=== PATIENT | female | born 1935 | race Hispanic/Latino ===

== ENCOUNTER 2016-06-28 10:11 | Inpatient (IN) | payer MEDICARE ==
[2016-06-28 10:58] LABS: BASO # 0.1 K/uL (0.0-0.2); BASO % 0.5 % (0.0-2.0); EOS # 0.1 K/uL (0.0-0.7); EOS % 0.9 % (0.0-4.0); HEMATOCRIT 18.4 % (34.0-47.0); LYMPH # 2.3 K/uL (1.0-4.3); LYMPH % 16.2 % (20.0-40.0); MEAN CORPUSCULAR HEMOGLOBIN 27.2 pg (27.0-31.0); MEAN CORPUSCULAR HGB CONC 32.2 g/dL (33.0-37.0); MEAN PLATELET VOLUME 8.3 fL (7.2-11.7); MONO # 0.5 K/uL (0.0-0.8); MONO % 3.8 % (0.0-10.0); NRBC % 0.1 % (0.0-2.0); WHITE BLOOD COUNT 14.3 K/uL (4.8-10.8)
[2016-06-28 11:00] LABS: CHLORIDE 100 mmol/L (98-107); MEAN CELL VOLUME 84.5 fL (81.0-99.0); POTASSIUM 4.4 mmol/L (3.6-5.2); SODIUM 142 mmol/L (132-148)
[2016-06-28 11:02] LABS: BILIRUBIN,TOTAL 0.5 mg/dL (0.2-1.3); GFR AFRICAN-AMERICAN 41
[2016-06-28 11:03] LABS: ALB/GLOB RATIO 1.5 (1.0-2.1); ALKALINE PHOSPHATASE 44 U/L (38-126); ALT/SGPT 15 U/L (9-52); AST/SGOT 16 U/L (14-36); BLOOD UREA NITROGEN 44 mg/dL (7-17); CALCIUM 8.8 mg/dl (8.6-10.4); CARBON DIOXIDE 23 mmol/L (22-30); GLUCOSE,RANDOM 243 mg/dL (65-105); TOTAL PROTEIN 6.7 g/dL (6.3-8.3)
--- NOTE | 2016-06-28 11:04 | C.PDOC ---
History Of Present Illness 81 y/o female presents to the ED with complains of SOB since yesterday with associated left sided chest pain and generalized weakness. Pt with pmhx diabetes , CHF. Pt had colonoscopy scheduled today but got canceled due to feeling weak. PMD Cathi, Blending Operator Yovanny. Pt was fasting for colonoscopy so did not take medications today. Denies fever, vomiting, dizziness or any other complaints. Time Seen by Provider: 06/28/16 10:26 Chief Complaint (Nursing): Shortness Of Breath History Per: Patient History/Exam Limitations: no limitations Onset/Duration Of Symptoms: Hrs Current Symptoms Are (Timing): Still Present Severity: Moderate Associated Symptoms: Chest Pain (left sided) Recent travel outside of the [place]: No Past Medical History Reviewed: Historical Data, Nursing Documentation, Vital Signs Vital Signs: Last Vital Signs Temp 97.8 F 06/28/16 16:26 Pulse 79 06/28/16 16:26 Resp 20 06/28/16 16:26 BP 147/73 06/28/16 16:26 Pulse Ox 96 06/28/16 15:39 - Medical History PMH: CHF, HTN, Hyperlipidemia Family History: States: Unknown Family Hx - Social History Hx Alcohol Use: No Hx Substance Use: No - Immunization History Hx Tetanus Toxoid Vaccination: No Hx Influenza Vaccination: Yes Hx Pneumococcal Vaccination: No Review Of Systems Except As Marked, All Systems Reviewed And Found Negative. Constitutional: Positive for: Weakness. Negative for: Fever Cardiovascular: Positive for: Chest Pain Respiratory: Positive for: Shortness of Breath Gastrointestinal: Negative for: Vomiting Neurological: Negative for: Dizziness Physical Exam - Physical Exam Appears: Non-toxic, No Acute Distress Skin: Warm, Dry, No Rash Head: Atraumatic, Normacephalic Oral Mucosa: Moist Neck: Normal ROM, Supple Chest: Symmetrical Cardiovascular: Rhythm Regular, No Murmur Respiratory: No Accessory Muscle Use, Rales, No Rhonchi, No Wheezing Gastrointestinal/Abdominal: Soft, No Tenderness Rectal: Heme Positive (stool brown) Extremity: Normal ROM, Pedal Edema (trace) Neurological/Psych: Oriented x3, Normal Speech, Normal Motor, Normal Sensation ED Course And Treatment - Laboratory Results Result Diagrams: 06/28/16 10:48 06/28/16 10:48 Lab Interpretation: Abnormal ECG: Interpreted By Me, Viewed By Me ECG Rhythm: Sinus Rhythm ECG Interpretation: Normal Rate From EC (BPM) O2 Sat by Pulse Oximetry: 86 (on room air) Pulse Ox Interpretation: Abnormal - Radiology CXR: Interpreted by Me CXR Interpretation: Yes: No Acute Disease - Other Rad CXR X-Ray: Viewed By Me, Read By Radiologist Interpretation: PROCEDURE: CHEST RADIOGRAPH, 1 VIEW. HISTORY: sob. COMPARISON: 10/27/2015. FINDINGS: LUNGS: Mild hazy opacity in the lung bases likely atelectasis. PLEURA: No pneumothorax or pleural fluid seen.Biapical pleural parenchymal thickening noted. CARDIOVASCULAR: Normal. OSSEOUS STRUCTURES: No significant abnormalities. VISUALIZED UPPER ABDOMEN: Normal. OTHER FINDINGS: None. IMPRESSION: Possible atelectasis at the lung bases. Progress Note: Plan: type and screen, EKG, labs, CXR, UA Reassessment Condition: Unchanged - Physician Consult Information Physician Contacted: Ramy Sheets Outcome Of Conversation: admit Disposition Discussed With : Ramy Sheets Doctor Will See Patient In The: Hospital Counseled Patient/Family Regarding: Studies Performed - Disposition Disposition: HOSPITALIZED Disposition Time: 12:30 Condition: STABLE - POA Present On Arrival: None - Clinical Impression Clinical Impression: Dyspnea, Anemia, Chest pain - PA / ROAD TESTER / Resident Statement MD/DO has reviewed & agrees with the documentation as recorded. - Scribe Statement The provider has reviewed the documentation as recorded by the Jaida Lovelace All medical record entries made by the Jaida were at my direction and personally dictated by me. I have reviewed the chart and agree that the record accurately reflects my personal performance of the history, physical exam, medical decision making, and the department course for this patient. I have also personally directed, reviewed, and agree with the discharge instructions and disposition. Decision To Admit - Pt Status Changed To: Hospital Disposition Of: Inpatient - Admit Certification Admit to Inpatient:: After my assessment, the patient will require hospitalization for at least two midnights. This is because of the severity of symptoms shown, intensity of services needed, and/or the medical risk in this patient being treated as an outpatient. - InPatient: Physician Admission Certification: I certify that this patient requires 2 or more midnights of care for the following reason:: Anemia. Chest Pain. Dyspnea - . Bed Request Type: Telemetry Admitting Physician: Ramy Sheets Patient Diagnosis: Dyspnea, Anemia, Chest pain
--- NOTE | 2016-06-28 11:22 | RAD ---
PROCEDURE: CHEST RADIOGRAPH, 1 VIEW HISTORY: sob COMPARISON: 10/27/2015 FINDINGS: LUNGS: Mild hazy opacity in the lung bases likely atelectasis. PLEURA: No pneumothorax or pleural fluid seen.Biapical pleural parenchymal thickening noted. CARDIOVASCULAR: Normal. OSSEOUS STRUCTURES: No significant abnormalities. VISUALIZED UPPER ABDOMEN: Normal. OTHER FINDINGS: None. IMPRESSION: Possible atelectasis at the lung bases.
--- NOTE | 2016-06-28 14:08 | CP.PCM.CON ---
History of Present Illness - History of Present Illness History of Present Illness: Cardiology Consult Note for Dr. Zelaya Reason for consult: Angina and CHF This is a 81Y F with PMH DM, HTN, a.fib (not on anticoagulation) came to the ED for weakness. Patient was found to have a Hgb of 5.9 in ED. She reports that she was recently at [facility] [place] last month for weakness, SOB and anemia. She states that she was supposed to get a colonoscopy today, but was not feeling well and came to the ED. The patient says she has pain on LUQ that radiates to her back for the past 2 days. It is worse with coughing, which is described as a dry cough. She reports that her stool was dark and she has not seen any blood in her stool. She denies CP, SOB, n/v/d, vision changes, numbness/tingling. She reports she is not on anticoagulation for her a.fib due to her anemia. She only takes ASA at home. PMH: DM, HTN, a.fib (not on anticoagulation), Hep C (treated), GERD, cataract, restless leg PSH: breast lipoma removal Home meds: Amiodarone, ASA, Glipizide, Cardizem All: NKDA SH: Quit smoking 40yrs ago, denies EtOH and drug use FH: Non contributory Review of Systems - Review of Systems All systems: reviewed and no additional remarkable complaints except Review of Systems: As mentioned in H&P Past Patient History - Past Medical History & Family History Past Medical History?: Yes - Past Social History Smoking Status: Former Smoker Alcohol: None Drugs: Denies Home Situation {Lives}: With Family - CARDIAC Hx Congestive Heart Failure: Yes Hx Hypertension: Yes - PULMONARY Hx Respiratory Disorders: No - NEUROLOGICAL Hx Neurological Disorder: No - HEENT Hx HEENT Problems: No Hx Cataracts: Yes (bilateral, no surgery) - RENAL Hx Chronic Kidney Disease: No - ENDOCRINE/METABOLIC Hx Diabetes Mellitus Type 2: Yes - HEMATOLOGICAL/ONCOLOGICAL Hx Blood Disorders: No Hx Anemia: Yes Hx Hepatitis C: Yes - INTEGUMENTARY Hx Dermatological Problems: No - MUSCULOSKELETAL/RHEUMATOLOGICAL Hx Musculoskeletal Disorders: No Hx Arthritis: Yes Hx Falls: No - GASTROINTESTINAL Hx Gastrointestinal Disorders: Yes Hx Colostomy: Yes Hx Hemorrhoids: Yes Other/Comment: Dark Stool a Month ago - GENITOURINARY/GYNECOLOGICAL Hx Genitourinary Disorders: No - PSYCHIATRIC Hx Substance Use: No - SURGICAL HISTORY Hx Surgeries: No - ANESTHESIA Hx Anesthesia: Yes Hx Anesthesia Reactions: No Hx Malignant Hyperthermia: No Has any member of the family had a problem w/ anesthesia?: No Meds Allergies/Adverse Reactions: Allergies Allergy/AdvReac Type Severity Reaction Status Date / Time No Known Allergies Allergy Verified 07/04/15 12:04 Physical Exam - Constitutional Appears: No Acute Distress - Head Exam Head Exam: ATRAUMATIC, NORMAL INSPECTION, NORMOCEPHALIC - Eye Exam Eye Exam: Normal appearance. absent: Scleral icterus (pale sclera ) Pupil Exam: NORMAL ACCOMODATION - ENT Exam ENT Exam: Mucous Membranes Moist - Neck Exam Neck exam: Positive for: Normal Inspection - Respiratory Exam Respiratory Exam: Rales (bilateral basilar ), Wheezes (apices bilateral ), NORMAL BREATHING PATTERN - Cardiovascular Exam Cardiovascular Exam: REGULAR RHYTHM, +S1, +S2. absent: Gallop, Rubs, Systolic Murmur - GI/Abdominal Exam GI & Abdominal Exam: Distended, Normal Bowel Sounds, Soft. absent: Mass, Rebound, Rigid, Tenderness - Extremities Exam Extremities exam: Positive for: pedal edema (+1 pitting bilaterally ) - Neurological Exam Neurological exam: Alert, CN II-XII Intact, Oriented x3 - Psychiatric Exam Psychiatric exam: Normal Affect, Normal Mood - Skin Skin Exam: Dry, Intact, Normal Color, Warm Results - Vital Signs Recent Vital Signs: Last Vital Signs Temp 97.5 F L 06/28/16 13:55 Pulse 76 06/28/16 13:55 Resp 18 06/28/16 13:55 BP 155/69 H 06/28/16 13:55 Pulse Ox 94 L 06/28/16 12:49 - Labs Result Diagrams: 06/28/16 10:48 06/28/16 10:48 Assessment & Plan - Assessment and Plan (Free Text) Assessment: This is a 81Y F with PMH DM, HTN, a.fib (not on anticoagulation) admitted for 1) Anemia secondary to GI bleed 2) A.fib - rate and rhythm controlled 3) DM 4) HTN 5) MARIA EUGENIA Plan: - Hold ASA - Outpatient echo noted to be normal EF with normal biventricular function - Lasix prn SOB during transfusion - Continue Amiodarone and Cardizem - GI work up pending GI ppx: Protonix DVT ppx: SCDs Case seen, reviewed and discussed with Dr. Garcia Wells PGY1 - Date & Time Date: 06/28/16 Time: 14:15
--- NOTE | 2016-06-28 17:16 | CARD ---
APPROVED REPORT EKG Measurement Heart [id number] <Conclusion> Normal sinus rhythm Normal ECG
--- NOTE | 2016-06-28 17:30 | CP.PCM.HP ---
History of Present Illness - History of Present Illness History of Present Illness: CC - "Chest pain and SOB" HPI - 81 year old Setswana speaking female with PMH DM, HTN, a.fib (not on anticoagulation), CHF came to the ED for weakness. Patient was found to have a Hgb of 5.9 in ED. She reports that she was recently at [facility] [place] last month for weakness, SOB and anemia. She states that she was supposed to get a colonoscopy today, but was not feeling well and came to the ED so the colonoscopy was cancelled. The patient says she has pain on LUQ that radiates to her back for the past 2 weeks. It is worse with coughing, which is described as a dry cough. She states this pain is right around her left breast. She describes it as a pressure like 10/10 pain that is worse with movement. She tried to take Alieve but this did not alleviate the pain. She denies radiation to the jaw or down the arm. Denies diaphoresis or N/V associated with the pain. She states that she is more SOb than normal for the past week and admits to leg swelling more than normal for her. She reports that her stool was dark/black and she has not seen any blood in her stool recently but saw blood once a month ago. She reports her last colonoscopy was 5 years ago but per GI there are no records of this. She has never had an endoscopy. She denies CP, SOB, n/v/d, vision changes , numbness/tingling. She reports she is not on anticoagulation for her a.fib due to her anemia. She only takes ASA at home. PMH: CHF?, Anemia, DM, HTN, a.fib (not on anticoagulation), Hep C (treated), GERD, cataract, restless leg PSH: breast lipoma removal Home meds: Amiodarone 200 mg PO daily, ASA 81 mg PO daily, Glipizide 10mg PO daily, Cardizem 240mg PO daily All: NKDA SH: Quit smoking 40yrs ago, denies EtOH and drug use FH: Non contributory Present on Admission - Present on Admission Any Indicators Present on Admission: No Review of Systems - Constitutional Constitutional: absent: Chills, Fever - Cardiovascular Cardiovascular: Chest Pain, Chest Pain at Rest, Leg Edema, Paroxysmal Nocturnal Dyspnea. absent: Diaphoresis, Palpitations, Pedal Edema, Syncope Additional comments: radiate to back around left breast - Respiratory Respiratory: Dyspnea. absent: Cough, Hemoptysis - Gastrointestinal Gastrointestinal: absent: Abdominal Pain, Constipation, Diarrhea, Nausea, Vomiting - Genitourinary Genitourinary: absent: Change in Urinary Stream, Difficulty Urinating - Neurological Neurological: absent: Abnormal Gait, Dizziness, Numbness, Tingling, Weakness - Hematologic/Lymphatic Hematologic: absent: Easy Bleeding, Easy Bruising Past Patient History - Past Medical History & Family History Past Medical History?: Yes - Past Social History Smoking Status: Former Smoker Alcohol: None Drugs: Denies Home Situation {Lives}: With Family - CARDIAC Hx Congestive Heart Failure: Yes Hx Hypertension: Yes - PULMONARY Hx Respiratory Disorders: No - NEUROLOGICAL Hx Neurological Disorder: No - HEENT Hx HEENT Problems: No Hx Cataracts: Yes (bilateral, no surgery) - RENAL Hx Chronic Kidney Disease: No - ENDOCRINE/METABOLIC Hx Diabetes Mellitus Type 2: Yes - HEMATOLOGICAL/ONCOLOGICAL Hx Blood Disorders: No Hx Anemia: Yes Hx Hepatitis C: Yes - INTEGUMENTARY Hx Dermatological Problems: No - MUSCULOSKELETAL/RHEUMATOLOGICAL Hx Musculoskeletal Disorders: No Hx Arthritis: Yes Hx Falls: No - GASTROINTESTINAL Hx Gastrointestinal Disorders: Yes Hx Colostomy: Yes Hx Hemorrhoids: Yes Other/Comment: Dark Stool a Month ago - GENITOURINARY/GYNECOLOGICAL Hx Genitourinary Disorders: No - PSYCHIATRIC Hx Substance Use: No - SURGICAL HISTORY Hx Surgeries: No - ANESTHESIA Hx Anesthesia: Yes Hx Anesthesia Reactions: No Hx Malignant Hyperthermia: No Has any member of the family had a problem w/ anesthesia?: No Meds Allergies/Adverse Reactions: Allergies Allergy/AdvReac Type Severity Reaction Status Date / Time No Known Allergies Allergy Verified 07/04/15 12:04 Physical Exam - Constitutional Appears: Non-toxic, No Acute Distress - Head Exam Head Exam: ATRAUMATIC, NORMAL INSPECTION - Eye Exam Eye Exam: EOMI, Normal appearance, PERRL Pupil Exam: NORMAL ACCOMODATION - ENT Exam ENT Exam: Mucous Membranes Dry - Respiratory Exam Respiratory Exam: Rales, NORMAL BREATHING PATTERN. absent: Accessory Muscle Use , Chest Wall Tenderness, Respiratory Distress - Cardiovascular Exam Cardiovascular Exam: Irregular Rhythm, +S1, +S2 - GI/Abdominal Exam GI & Abdominal Exam: Normal Bowel Sounds, Soft. absent: Distended, Guarding, Tenderness - Extremities Exam Extremities exam: Positive for: normal inspection. Negative for: calf tenderness, pedal edema Additional comments: 2+ edema bilateral - Back Exam Back exam: NORMAL INSPECTION, paraspinal tenderness. absent: CVA tenderness (L) , CVA tenderness (R) - Neurological Exam Neurological exam: Alert, CN II-XII Intact, Oriented x3, Reflexes Normal - Psychiatric Exam Psychiatric exam: Normal Affect, Normal Mood - Skin Skin Exam: Dry, Intact, Normal Color, Pallor, Warm Results - Vital Signs Recent Vital Signs: Last Vital Signs Temp 97.8 F 06/28/16 16:26 Pulse 79 06/28/16 16:26 Resp 20 06/28/16 16:26 BP 147/73 06/28/16 16:26 Pulse Ox 86 L 06/28/16 17:17 - Labs Result Diagrams: 06/28/16 10:48 06/28/16 10:48 Labs: Laboratory Results - last 24 hr 06/28/16 06/28/16 16:04 16:24 POC Glucose (mg/dL) 55 L 73 Assessment & Plan - Assessment and Plan (Free Text) Assessment: Anemia secondary to GI Bleed Hbg - 5.9 1 u PRBC administered, will watch for overload transfuse more as necessary Dr Stockton, GI consulted, help appreciated Protonix 40mg IVP BID CHF exacerbation secondary to anemia BNP elevated - 1940 40 Lasix IVP x 1 dose First Troponin negative - f/u x2 more EKG - NSR, follow up x 2 more Patient with a hx of A fib on past admission at [facility] [place] not on anticoagulation ASA 81mg PO daily - held due to possible GI bleed Chest X ray - possible atelectasis, rales on examination (slight) Amiodarone 200mg PO daily Diltiazem 240mg PO daily Cardiology consulted, Dr. Zelaya help appreciated f/u echocardiogram Chest pain rule out UT/dissection meds and tests as listed above f/u Aorta US - can't get contrast due to kidney function f/u abd obstructive series MARIA EUGENIA unsure of baseline Monitor BUN/CR 44/1.5 DM Accuchecks ACHS Insulin sliding scale Hold home glipizide f/u HbA1c Prophylactic Measures Protonix 40mg IVP BID No chemical anticoagualtion due to possible GI bleed Consisten Carb heart healthy diet
--- NOTE | 2016-06-28 18:36 | CP.PCM.CON ---
History of Present Illness - History of Present Illness History of Present Illness: CC: Anemia HPI: 81 year old woman well known to me for many years, successfully treated for hepatitis C with sustained virologic response. We are asked to consult for anemia , Hgb 5, possible GI bleed. The [place] [facility] ago for new onset SFib, and was found to be anemic then, so was not anticoagulated, and in fact was scheduled for Colonoscopy with me today, but came to the ER instead because of chest and back pain and severe anemia. The patient can not see well, but thinks she saw black stools intermittently over the past 2 weeks. The patient received one unit of PRBCs to this point. She was evaluated by Dr Tran of Cardiology, and per my discussion with him, she has good cardiac function, and is not having coronary ischemia and is stable to undergo GI endoscopic procedures. I also spoke with Dr hSeets, the primary admitting doctor. Review of Systems - Constitutional Constitutional: Malaise, Weakness. absent: Chills - EENT Eyes: absent: Change in Vision Ears: absent: Decreased Hearing Nose/Mouth/Throat: absent: Epistaxis - Cardiovascular Cardiovascular: Chest Pain, Dyspnea, Irregular Heart Rhythm, Radiating Pain - Respiratory Respiratory: absent: Cough - Gastrointestinal Gastrointestinal: Melena. absent: Abdominal Pain, Change in Bowel Habits, Nausea - Genitourinary Genitourinary: absent: Difficulty Urinating - Musculoskeletal Musculoskeletal: Arthralgias, Back Pain - Neurological Neurological: absent: Abnormal Hearing, Confusion, Syncope - Psychiatric Psychiatric: absent: Confusion Past Patient History - Past Medical History & Family History Past Medical History?: Yes - Past Social History Smoking Status: Former Smoker Alcohol: None Drugs: Denies Home Situation {Lives}: With Family - CARDIAC Hx Congestive Heart Failure: Yes Hx Hypertension: Yes - PULMONARY Hx Respiratory Disorders: No - NEUROLOGICAL Hx Neurological Disorder: No - HEENT Hx HEENT Problems: No Hx Cataracts: Yes (bilateral, no surgery) - RENAL Hx Chronic Kidney Disease: No - ENDOCRINE/METABOLIC Hx Diabetes Mellitus Type 2: Yes - HEMATOLOGICAL/ONCOLOGICAL Hx Blood Disorders: No Hx Anemia: Yes Hx Hepatitis C: Yes - INTEGUMENTARY Hx Dermatological Problems: No - MUSCULOSKELETAL/RHEUMATOLOGICAL Hx Musculoskeletal Disorders: No Hx Arthritis: Yes Hx Falls: No - GASTROINTESTINAL Hx Gastrointestinal Disorders: Yes Hx Colostomy: Yes Hx Hemorrhoids: Yes Other/Comment: Dark Stool a Month ago - GENITOURINARY/GYNECOLOGICAL Hx Genitourinary Disorders: No - PSYCHIATRIC Hx Substance Use: No - SURGICAL HISTORY Hx Surgeries: No - ANESTHESIA Hx Anesthesia: Yes Hx Anesthesia Reactions: No Hx Malignant Hyperthermia: No Has any member of the family had a problem w/ anesthesia?: No Meds Allergies/Adverse Reactions: Allergies Allergy/AdvReac Type Severity Reaction Status Date / Time No Known Allergies Allergy Verified 07/04/15 12:04 - Medications Medications: Current Medications Amiodarone HCl (Cordarone) 200 mg PO DAILY [facility] Diltiazem HCl (Cardizem Cd) 240 mg PO DAILY [facility] Insulin Human Regular (Novolin R) 0 unit SC ACHS MARIBETH PRN Reason: Protocol Pantoprazole Sodium (Protonix Inj) 40 mg IVP Q12H [facility] Last Admin: 06/28/16 16:53 Dose: 40 mg Physical Exam - Constitutional Appears: No Acute Distress, Chronically Ill - Head Exam Head Exam: NORMOCEPHALIC - Eye Exam Eye Exam: absent: Scleral icterus Additional comments: Conjunct pale - ENT Exam ENT Exam: Mucous Membranes Dry - Neck Exam Neck exam: Positive for: Normal Inspection - Respiratory Exam Respiratory Exam: NORMAL BREATHING PATTERN - Cardiovascular Exam Cardiovascular Exam: Irregular Rhythm - GI/Abdominal Exam GI & Abdominal Exam: Soft. absent: Distended, Mass, Organomegaly, Rebound, Tenderness - Rectal Exam Rectal Exam: Deferred - Extremities Exam Extremities exam: Positive for: normal inspection - Back Exam Back exam: NORMAL INSPECTION - Neurological Exam Neurological exam: Alert, Oriented x3 Results - Vital Signs Recent Vital Signs: Last Vital Signs Temp 97.8 F 06/28/16 16:26 Pulse 79 06/28/16 16:26 Resp 20 06/28/16 16:26 BP 147/73 06/28/16 16:26 Pulse Ox 86 L 06/28/16 17:17 - Labs Result Diagrams: 06/28/16 10:48 06/28/16 10:48 Labs: Laboratory Results - last 24 hr 06/28/16 06/28/16 16:04 16:24 POC Glucose (mg/dL) 55 L 73 Assessment & Plan (1) Anemia Assessment and Plan: R/O GI Bleed. Possible melena in history. Rec: PPI. EGD in AM. Discussed with Custodial Maintenance Worker. Transfuse PRBCs to Hgb at least 7.5. Status: Acute (2) Chest pain Assessment and Plan: Noncardiac pain. Custodial Maintenance Worker on consult. Status: Acute (3) Diabetes 1.5, managed as type 2 Assessment and Plan: Management per PCP Status: Chronic (4) Atrial fibrillation with controlled ventricular response Assessment and Plan: Recent diagnosis, but no anticoagulation due to anemia. Will need GI workup. Status: Acute
[2016-06-28 19:51] LABS: IRON 116 ug/dL (37-170)
[2016-06-28 19:57] LABS: BASO # 0.1 K/uL (0.0-0.2); BASO % 0.5 % (0.0-2.0); EOS # 0.2 K/uL (0.0-0.7); EOS % 1.2 % (0.0-4.0); HEMATOCRIT 21.4 % (34.0-47.0); LYMPH % 20.6 % (20.0-40.0); MEAN CELL VOLUME 83.2 fL (81.0-99.0); MEAN CORPUSCULAR HEMOGLOBIN 26.6 pg (27.0-31.0); MEAN PLATELET VOLUME 8.3 fL (7.2-11.7); MONO # 0.7 K/uL (0.0-0.8); MONO % 4.7 % (0.0-10.0); NRBC % 0.1 % (0.0-2.0); RED CELL DISTRIBUTION WIDTH 16.5 % (11.5-14.5); WHITE BLOOD COUNT 14.6 K/uL (4.8-10.8)
[2016-06-28] MEDS: (Novolin R) Insulin Human Regular 100 units/ml vial SC SCH (21:29)
--- NOTE | 2016-06-29 07:30 | CP.PCM.PN ---
Subjective - Date & Time of Evaluation Date of Evaluation: 06/29/16 Time of Evaluation: 20:00 - Subjective Subjective: Patient seen and examined at bedside. There were no acute overnight events. She is still complainig of the pain around her left breast when she moves. She reports having to urinate multiple times yesterday after her IV lasix. She says that her breathing and weakness has improved since her transfusion yesterday. She denies having any CP, SOB, n/v/d, numbness/tingling. Objective - Vital Signs/Intake and Output Vital Signs (last 24 hours): Temp Pulse Resp BP Pulse Ox 97.9 F 77 20 127/67 96 06/28/16 23:20 06/28/16 23:35 06/28/16 23:20 06/28/16 23:20 06/28/16 23:20 - Medications Medications: Current Medications Amiodarone HCl (Cordarone) 200 mg PO DAILY [facility] Diltiazem HCl (Cardizem Cd) 240 mg PO DAILY [facility] Insulin Human Regular (Novolin R) 0 unit SC ACHS [facility] PRN Reason: Protocol Last Admin: 06/28/16 21:29 Dose: Not Given Pantoprazole Sodium (Protonix Inj) 40 mg IVP Q12H [facility] Last Admin: 06/28/16 16:53 Dose: 40 mg - Labs Labs: 06/28/16 19:50 - Constitutional Appears: Non-toxic, No Acute Distress - Head Exam Head Exam: NORMAL INSPECTION - Eye Exam Eye Exam: EOMI, Normal appearance, PERRL Pupil Exam: NORMAL ACCOMODATION - ENT Exam ENT Exam: Mucous Membranes Moist, Normal Oropharynx - Respiratory Exam Respiratory Exam: Rales (mild ), NORMAL BREATHING PATTERN. absent: Accessory Muscle Use, Chest Wall Tenderness, Respiratory Distress - Cardiovascular Exam Cardiovascular Exam: REGULAR RHYTHM, +S1, +S2 - GI/Abdominal Exam GI & Abdominal Exam: Soft, Normal Bowel Sounds. absent: Distended, Firm, Guarding, Tenderness - Extremities Exam Extremities Exam: Full ROM, Normal Inspection, Pedal Edema. absent: Calf Tenderness Additional comments: 1+ bilateral - Back Exam Back Exam: NORMAL INSPECTION. absent: CVA tenderness (L), CVA tenderness (R), paraspinal tenderness - Neurological Exam Neurological Exam: Alert, Awake, CN II-XII Intact, Oriented x3 Neuro motor strength exam: Left Upper Extremity: 5, Right Upper Extremity: 5, Left Lower Extremity: 5, Right Lower Extremity: 5 - Psychiatric Exam Psychiatric exam: Normal Affect, Normal Mood - Skin Skin Exam: Dry, Intact, Pallor, Warm Assessment and Plan - Assessment and Plan (Free Text) Assessment: Anemia secondary to GI Bleed Hbg - 5.9, repeat 6.9, then 7 will administer 1-2 more units PRBC 1 more unit this AM - will revaluate before giving the 3rd unit 1 u PRBC administered on 06/29- will watch for overload Transfuse PRBCs to Hgb at least 7.5 Dr [place], GI consulted, help appreciated - EGD today Protonix 40mg IVP BID CHF exacerbation secondary to anemia BNP elevated - 1940 40 Lasix IVP x 1 dose Troponin negative x 3 EKG - NSR, x 3. no acute changes Patient with a hx of A fib on past admission at [facility] [place] not on anticoagulation ASA 81mg PO daily - held due to possible GI bleed Chest X ray - possible atelectasis, rales on examination (slight) Amiodarone 200mg PO daily Diltiazem 240mg PO daily Cardiology consulted, Dr. Zelaya help appreciated f/u echocardiogram Chest pain non cardiac in nature ruled out MS/dissection meds as listed above Aorta US- no evidence of AAA Abd obstructive series - moderate constipation, no obstruction, no free air MARIA EUGENIA unsure of baseline Monitor BUN/CR 39/1.5 DM Accuchecks ACHS Insulin sliding scale Hold home glipizide HbA1c - 6 Constipation Lactulose x 1 dose after EGD Prophylactic Measures Protonix 40mg IVP BID No chemical anticoagulation due to possible GI bleed Consistent Carb heart healthy diet
[2016-06-29] MEDS: (Novolin R) Insulin Human Regular 100 units/ml vial SC SCH ×4 (07:33→22:01)
[2016-06-29 07:37] LABS: BASO % 0.4 % (0.0-2.0); EOS # 0.3 K/uL (0.0-0.7); EOS % 2.2 % (0.0-4.0); HEMATOCRIT 21.5 % (34.0-47.0); LYMPH # 2.2 K/uL (1.0-4.3); LYMPH % 17.2 % (20.0-40.0); MEAN CELL VOLUME 83.2 fL (81.0-99.0); MEAN CORPUSCULAR HEMOGLOBIN 27.1 pg (27.0-31.0); MEAN CORPUSCULAR HGB CONC 32.6 g/dL (33.0-37.0); MEAN PLATELET VOLUME 8.3 fL (7.2-11.7); MONO # 0.6 K/uL (0.0-0.8); MONO % 4.8 % (0.0-10.0); NRBC % 0.1 % (0.0-2.0); RED CELL DISTRIBUTION WIDTH 16.6 % (11.5-14.5)
[2016-06-29 07:50] LABS: CHLORIDE 101 mmol/L (98-107); POTASSIUM 3.7 mmol/L (3.6-5.2); SODIUM 141 mmol/L (132-148)
[2016-06-29 07:52] LABS: ALB/GLOB RATIO 1.4 (1.0-2.1); ALKALINE PHOSPHATASE 42 U/L (38-126); AST/SGOT 16 U/L (14-36); BILIRUBIN,TOTAL 0.4 mg/dL (0.2-1.3); BLOOD UREA NITROGEN 39 mg/dL (7-17); CARBON DIOXIDE 25 mmol/L (22-30); CHOLESTEROL 115 mg/dL (0-199); GFR AFRICAN-AMERICAN 41; TOTAL PROTEIN 6.4 g/dL (6.3-8.3)
[2016-06-29 07:53] LABS: ALT/SGPT 20 U/L (9-52); CALCIUM 8.7 mg/dl (8.6-10.4); GLUCOSE,RANDOM 93 mg/dL (65-105); PHOSPHOROUS 4.9 mg/dL (2.5-4.5)
[2016-06-29] MEDS: diltiaZEM 240 mg/24 Hours CD Cap PO SCH (09:14)
--- NOTE | 2016-06-29 09:39 | CP.PCM.PN ---
Subjective - Date & Time of Evaluation Date of Evaluation: 06/29/16 Time of Evaluation: 09:25 - Subjective Subjective: Cardiology Progress Note for Dr. Zelaya Patient seen and examined at bedside. There were no acute overnight events. She reports having to urinate multiple times yesterday after her IV lasix. She says that her breathing and weakness has improved since her transfusion yesterday. She denies having any CP, SOB, n/v/d, numbness/tingling. Objective - Vital Signs/Intake and Output Vital Signs (last 24 hours): Temp Pulse Resp BP Pulse Ox 97.9 F 74 18 122/64 97 06/29/16 09:01 06/29/16 09:01 06/29/16 09:01 06/29/16 09:01 06/29/16 08:55 Intake and Output: 06/29/16 06/29/16 06:59 18:59 Intake Total 0 Balance 0 - Medications Medications: Current Medications Amiodarone HCl (Cordarone) 200 mg PO DAILY [facility] Last Admin: 06/29/16 09:14 Dose: 200 mg Diltiazem HCl (Cardizem Cd) 240 mg PO DAILY [facility] Last Admin: 06/29/16 09:14 Dose: 240 mg Insulin Human Regular (Novolin R) 0 unit SC ACHS [facility] PRN Reason: Protocol Last Admin: 06/29/16 07:33 Dose: Not Given Pantoprazole Sodium (Protonix Inj) 40 mg IVP Q12H [facility] Last Admin: 06/28/16 16:53 Dose: 40 mg - Labs Labs: 06/29/16 07:09 06/29/16 07:09 - Constitutional Appears: No Acute Distress - Head Exam Head Exam: ATRAUMATIC, NORMAL INSPECTION, NORMOCEPHALIC - Eye Exam Eye Exam: Normal appearance Pupil Exam: NORMAL ACCOMODATION - ENT Exam ENT Exam: Mucous Membranes Moist - Neck Exam Neck Exam: Normal Inspection - Respiratory Exam Respiratory Exam: Clear to Ausculation Bilateral, NORMAL BREATHING PATTERN. absent: Rales, Rhonchi, Wheezes, Respiratory Distress - Cardiovascular Exam Cardiovascular Exam: REGULAR RHYTHM, +S1, +S2. absent: Gallop, Rubs, Murmur - GI/Abdominal Exam GI & Abdominal Exam: Soft, Normal Bowel Sounds. absent: Guarding, Rigid, Tenderness, Rebound - Extremities Exam Extremities Exam: Normal Capillary Refill, Normal Inspection, Pedal Edema (+1 pitting edema ). absent: Tenderness - Neurological Exam Neurological Exam: Alert, Awake, CN II-XII Intact, Oriented x3 - Psychiatric Exam Psychiatric exam: Normal Affect, Normal Mood - Skin Skin Exam: Dry, Intact, Normal Color Assessment and Plan - Assessment and Plan (Free Text) Assessment: This is a 81Y F with PMH DM, HTN, a.fib (not on anticoagulation) admitted for 1) Anemia secondary to GI bleed 2) A.fib - rate and rhythm controlled 3) DM 4) HTN 5) MARIA EUGENIA Plan: - Hgb 7.0- will be transfused 2 more PRBC - Lasix prn SOB during transfusion - Continue Amiodarone and Cardizem - EGD planned for today as per GI - TSH noted to be elevated-will repeat to confirm hypothyroidism - T4 normal GI ppx: Protonix DVT ppx: SCDs Case seen, reviewed and discussed with Dr. Garcia Wells PGY1
--- NOTE | 2016-06-29 09:42 | US ---
Indication: chest pain radiating to the back Technique: Transabdominal grayscale and Doppler ultrasound imaging of the aorta. Comparison: None available. Findings: No evidence of aneurysm of the abdominal aorta. No periaortic mass or fluid collection identified. The proximal aorta measures approximately 1.8 cm AP in the sagittal plane, 2.1 x 1.9 cm transverse. The mid aorta measures approximately 1.1 cm AP in the sagittal plane, 1.6 x 1.3 cm transverse. The distal aorta measures approximately 0.8 cm AP in the sagittal plane, 1.3 x 0.9 cm transverse. Impression: No evidence of abdominal aortic aneurysm.
--- NOTE | 2016-06-29 10:02 | RAD ---
Indication: Assess for free air, upright Abdomen series Comparison: None Findings: Examination limited by habitus. Visualized lung bases reveal interstitial pattern. No significant pleural effusion or definite pneumothorax. Elevation of the right hemidiaphragm. Nonspecific bowel gas pattern without evidence of obstruction. Moderate constipation. No definite free air. Coarse pelvic calcifications likely related to degenerating fibroids. Right upper quadrant calcifications may reflect gallstones. Degenerative changes of the spine. Impression: Moderate constipation. Right upper quadrant calcifications may represent gallstones. Coarse pelvic calcifications likely related to degenerating fibroids. Preliminary impression was provided by virtual radiologic.
[2016-06-29] MEDS ORDERED: Propofol 10 mg/ml Inj (20 ML) ONE (10:27)
--- NOTE | 2016-06-29 15:46 | CARD ---
APPROVED REPORT EXAM: Two-dimensional and M-mode echocardiogram with Doppler and color Doppler. Other Information Quality : GoodRhythm : Technically limited study due to body habitus. INDICATION Dizziness and Vertigo Dyspnea Atrial Fibrillation Chest pressure RISK FACTORS Obesity Diabetes M-Mode DIMENSIONS RVDd1.63 (2.1-3.2cm)Left Atrium (MM)4.82 (2.5-4.0cm) IVSd1.11 (0.7-1.1cm)Aortic Root2.50 (2.2-3.7cm) LVDd5.03 (4.0-5.6cm)Aortic Cusp Exc.1.84 (1.5-2.0cm) PWd1.08 (0.7-1.1cm)FS (%) 52 % LVDs2.43 (2.0-3.8cm)LVEF (%)83 (>50%) Mitral Valve MV E Vxcsuoxc334.7cm/sMV A Ucqzrglu42.3cm/sE/A ratio2.0 TDI E/Lateral E'0.0E/Medial E'0.0 Tricuspid Valve TR Peak Qdbezjac381fs/sTR Peak Gr.[id number] LEFT VENTRICLE The left ventricle is normal size. There is borderline concentric left ventricular hypertrophy. The left ventricular function is normal. The left ventricular ejection fraction is within the normal range. There is normal LV segmental wall motion. RIGHT VENTRICLE The right ventricle is normal size. There is normal right ventricular wall thickness. The right ventricular systolic function is normal. ATRIA The left atrium is moderately dilated. The right atrium is mildly dilated. AORTIC VALVE The aortic valve is moderately sclerotic. MITRAL VALVE The mitral valve leaflets are thickened and calcified., A mitral vegitation can not be ruled out Mitral regurgitation is mild to moderate. TRICUSPID VALVE There is moderate tricuspid regurgitation. There is moderate to severe pulmonary hypertension. GREAT VESSELS The aortic root is normal in size. The IVC is normal in size and collapses >50% with inspiration. PERICARDIAL EFFUSION There is no pericardial effusion. <Conclusion> The left ventricle is normal size. There is borderline concentric left ventricular hypertrophy. The left ventricular function is normal. The left ventricular ejection fraction is within the normal range. The mitral valve leaflets are thickened and calcified., A mitral vegitation can not be ruled out Mitral regurgitation is mild to moderate. There is moderate to severe pulmonary hypertension.
--- NOTE | 2016-06-29 16:05 | CARD ---
APPROVED REPORT EKG Measurement Heart [id number] <Conclusion> Normal sinus rhythm Normal ECG
[2016-06-29 17:53] LABS: RBC URINE 13 /hpf (0-3); URINE BILIRUBIN NEGATIVE (NEGATIVE); URINE BLOOD 2+ (NEGATIVE); URINE COLOR Yellow (YELLOW); URINE GLUCOSE (UA) NORMAL (Normal); URINE KETONE NEGATIVE (NEGATIVE); URINE LEUKOCYTE ESTERASE NEG Leu/uL (Negative); URINE PROTEIN 2+ mg/dL (NEGATIVE); URINE UROBILINOGEN NORMAL mg/dL (0.2-1.0); WBC URINE 5 /hpf (0-5)
[2016-06-29] MEDS ORDERED: Peg-Electrolyte Oral Soln 4L (Golytely) PO ONE (19:00)
[2016-06-30 06:40] LABS: INR 1.2
[2016-06-30 07:22] LABS: BASO # 0.1 K/uL (0.0-0.2); BASO % 0.7 % (0.0-2.0); EOS # 0.3 K/uL (0.0-0.7); HEMATOCRIT 24.8 % (34.0-47.0); LYMPH # 2.3 K/uL (1.0-4.3); LYMPH % 20.7 % (20.0-40.0); MEAN CELL VOLUME 83.6 fL (81.0-99.0); MEAN CORPUSCULAR HEMOGLOBIN 26.7 pg (27.0-31.0); MEAN PLATELET VOLUME 8.4 fL (7.2-11.7); MONO # 0.6 K/uL (0.0-0.8); MONO % 4.9 % (0.0-10.0); NRBC % 0.1 % (0.0-2.0); RED CELL DISTRIBUTION WIDTH 16.5 % (11.5-14.5); WHITE BLOOD COUNT 11.3 K/uL (4.8-10.8)
[2016-06-30] MEDS: (Novolin R) Insulin Human Regular 100 units/ml vial SC SCH ×4 (07:33→21:32)
[2016-06-30] MEDS ORDERED: Lactated Ringer's 500 ML IV ONE (08:05)
--- NOTE | 2016-06-30 08:17 | CP.PCM.PN ---
Subjective - Date & Time of Evaluation Date of Evaluation: 06/30/16 Time of Evaluation: 08:30 - Subjective Subjective: Cardiology Progress Note for Dr. Zelaya Patient seen and examined at bedside. There were no acute overnight events. She just came back from colonoscopy. She was seen sitting up eating comfortably in bed. She denies having any CP, SOB, n/v/d, numbness/tingling. She does report having a headache. She continues to have pain under left L breast that radiates to her back. She says it is worse when moving her L arm around, but the pain has improved since admission. Objective - Vital Signs/Intake and Output Vital Signs (last 24 hours): Temp Pulse Resp BP Pulse Ox 98.5 F 89 20 128/68 96 06/30/16 07:00 06/30/16 07:00 06/30/16 07:00 06/30/16 07:00 06/30/16 07:00 Intake and Output: 06/30/16 06/30/16 06:59 18:59 Intake Total 4000 Balance 4000 - Medications Medications: Current Medications Amiodarone HCl (Cordarone) 200 mg PO DAILY [facility] Last Admin: 06/29/16 09:14 Dose: 200 mg Diltiazem HCl (Cardizem Cd) 240 mg PO DAILY [facility] Last Admin: 06/29/16 09:14 Dose: 240 mg Insulin Human Regular (Novolin R) 0 unit SC ACHS [facility] PRN Reason: Protocol Last Admin: 06/30/16 07:33 Dose: Not Given Pantoprazole Sodium (Protonix Inj) 40 mg IVP Q12H [facility] Last Admin: 06/30/16 04:10 Dose: 40 mg - Labs Labs: 06/30/16 06:02 06/29/16 07:09 PT 13.4 SECONDS (9.7-12.2) H 06/30/16 06:02 INR 1.2 06/30/16 06:02 APTT 33 SECONDS (21-34) 06/30/16 06:02 - Constitutional Appears: No Acute Distress - Head Exam Head Exam: ATRAUMATIC, NORMAL INSPECTION, NORMOCEPHALIC - Eye Exam Eye Exam: Normal appearance Pupil Exam: NORMAL ACCOMODATION - ENT Exam ENT Exam: Mucous Membranes Moist - Respiratory Exam Respiratory Exam: Clear to Ausculation Bilateral, NORMAL BREATHING PATTERN. absent: Rales, Rhonchi, Wheezes - Cardiovascular Exam Cardiovascular Exam: REGULAR RHYTHM, +S1, +S2. absent: Gallop, Rubs, Murmur - GI/Abdominal Exam GI & Abdominal Exam: Soft, Normal Bowel Sounds. absent: Rigid, Tenderness, Mass , Rebound - Extremities Exam Extremities Exam: Pedal Edema (trace). absent: Calf Tenderness - Back Exam Back Exam: paraspinal tenderness (T7) Additional comments: L rib tenderness that follows along the 7th rib to the back - Neurological Exam Neurological Exam: Alert, Awake, CN II-XII Intact, Oriented x3 - Psychiatric Exam Psychiatric exam: Normal Affect, Normal Mood - Skin Skin Exam: Dry, Normal Color, Warm Assessment and Plan - Assessment and Plan (Free Text) Assessment: This is a 81Y F with PMH DM, HTN, a.fib (not on anticoagulation) admitted for 1) Anemia secondary to GI bleed 2) A.fib - rate and rhythm controlled 3) DM 4) HTN 5) MARIA EUGENIA 6) Rib pain- most likely Costochondritis Plan: - Hgb 7.9 s/p 2 PRBC yesterday - Continue to trend CBC - Echo showed EF of 83%, thickened mitral valve with moderate regurgitation and moderate to severe pulmonary HTN - Continue Amiodarone and Cardizem - she is rate and rhythm controlled - EGD did not show source of bleed - s/p Colonoscopy- results pending GI ppx: Protonix DVT ppx: SCDs Case seen, reviewed and discussed with Dr. Garcia Wells PGY1
[2016-06-30] MEDS ORDERED: Midazolam 2 MG/2 ML VIAL ONE (08:18)
[2016-06-30] MEDS: diltiaZEM 240 mg/24 Hours CD Cap PO SCH (10:45)
--- NOTE | 2016-06-30 16:15 | CP.PCM.PN ---
Subjective - Date & Time of Evaluation Date of Evaluation: 06/30/16 Time of Evaluation: 08:00 - Subjective Subjective: PGY [address] Sheets: Patient seen and examined at bedside. There were no acute overnight events. She is still complaining of the pain around her left breast when she moves. She says that her breathing and weakness has improved. She denies having any CP, SOB , n/v/d, numbness/tingling. Per nursing patient had dark stools yesterday. Patient had a colonoscopy today. Patient denied all other complaints such as headache, visual changes, weakness/numbness, fever/chills, SOB, chest pain, palpitation, abd pain, N/V, constipation, diarrhea, edema, urinary complaints. Objective - Vital Signs/Intake and Output Vital Signs (last 24 hours): Temp Pulse Resp BP Pulse Ox 97.6 F 76 20 133/65 96 06/30/16 15:43 06/30/16 15:43 06/30/16 15:43 06/30/16 15:43 06/30/16 15:43 Intake and Output: 06/30/16 06/30/16 06:59 18:59 Intake Total 4000 600 Balance 4000 600 - Medications Medications: Current Medications Amiodarone HCl (Cordarone) 200 mg PO DAILY [facility] Last Admin: 06/30/16 10:45 Dose: 200 mg Diltiazem HCl (Cardizem Cd) 240 mg PO DAILY [facility] Last Admin: 06/30/16 10:45 Dose: 240 mg Insulin Human Regular (Novolin R) 0 unit SC ACHS [facility] PRN Reason: Protocol Last Admin: 06/30/16 12:03 Dose: 1 unit Lidocaine (Lidoderm) 1 ea TD DAILY [facility] Pantoprazole Sodium (Protonix Inj) 40 mg IVP Q12H [facility] Last Admin: 06/30/16 04:10 Dose: 40 mg Tramadol HCl (Ultram) 25 mg PO TID [facility] - Labs Labs: 06/30/16 13:52 06/29/16 07:09 PT 13.4 SECONDS (9.7-12.2) H 06/30/16 06:02 INR 1.2 06/30/16 06:02 APTT 33 SECONDS (21-34) 06/30/16 06:02 - Constitutional Appears: Non-toxic, No Acute Distress - Head Exam Head Exam: ATRAUMATIC, NORMAL INSPECTION - Eye Exam Eye Exam: EOMI, PERRL Pupil Exam: NORMAL ACCOMODATION - ENT Exam ENT Exam: Mucous Membranes Moist - Neck Exam Neck Exam: Normal Inspection - Respiratory Exam Respiratory Exam: Chest Wall Tenderness (around l breast), Rales (mild b/l), NORMAL BREATHING PATTERN. absent: Accessory Muscle Use - Cardiovascular Exam Cardiovascular Exam: REGULAR RHYTHM, +S1, +S2 - GI/Abdominal Exam GI & Abdominal Exam: Soft, Normal Bowel Sounds (obese). absent: Distended, Firm , Guarding, Tenderness - Extremities Exam Extremities Exam: Full ROM, Normal Inspection. absent: Calf Tenderness, Pedal Edema - Back Exam Back Exam: NORMAL INSPECTION. absent: CVA tenderness (L), CVA tenderness (R), paraspinal tenderness - Neurological Exam Neurological Exam: Alert, Awake, CN II-XII Intact, Oriented x3 Neuro motor strength exam: Left Upper Extremity: 5, Right Upper Extremity: 5, Left Lower Extremity: 5, Right Lower Extremity: 5 - Psychiatric Exam Psychiatric exam: Normal Affect, Normal Mood - Skin Skin Exam: Dry, Intact, Normal Color, Pallor, Warm Assessment and Plan - Assessment and Plan (Free Text) Assessment: Anemia secondary to GI Bleed Hbg - 5.9 on admission Hbg today 8.2 s/p 2 units PRBC Transfuse PRBCs to Hgb at least 7.5 Dr [place], GI consulted, help appreciated - rec capsult study, no source of bleeding on egc or colonoscopy EGD 06/29/16 - medium sized hiatal hernia, gastritis biopsied pathology: negative for H. pylori Colonoscopy 06/30/16 - moderate diverticulosis in the sigmoid and in the descending colon, non bleeding internal hemorrhoids Protonix 40mg IVP BID CHF exacerbation secondary to anemia BNP elevated - 1940 40 Lasix IVP x 1 dose Troponin negative x 3 EKG - NSR, x 3. no acute changes Patient with a hx of A fib on past admission at [facility] [place] not on anticoagulation ASA 81mg PO daily - held due to possible GI bleed Chest X ray - possible atelectasis, rales on examination (slight) Amiodarone 200mg PO daily Diltiazem 240mg PO daily Cardiology consulted, Dr. Zelaya help appreciated - asked to please take a look at Echo echocardiogram - LV hypertrophy, Normal EF, severe pulm HTN, mitral valve calcifications can't rule out vegetation Patient afebrile no signs of endocarditis Chest pain non cardiac in nature - like chostrochronditis ruled out IA/dissection Trops negative x 3 meds as listed above Aorta US- no evidence of AAA Abd obstructive series - moderate constipation, no obstruction, no free air MARIA EUGENIA unsure of baseline Monitor BUN/CR 39/1.5 DM Accuchecks ACHS Insulin sliding scale Hold home glipizide HbA1c - 6 Constipation Lactulose x 1 dose, pt had colonoscopy today Prophylactic Measures Protonix 40mg IVP BID No chemical anticoagulation due to possible GI bleed Consistent Carb heart healthy diet Possible DC tomorrow if Hgb stable.
[2016-06-30] MEDS: Lidocaine 5% Patch TD SCH (16:49)
[2016-06-30] MEDS: Tramadol 25 mg PO SCH (17:31)
[2016-07-01] MEDS: Capsaicin 0.025% Cream (60 gm) TOP PRN ×3 (04:38→23:35)
[2016-07-01 07:23] LABS: BASO # 0.1 K/uL (0.0-0.2); BASO % 0.6 % (0.0-2.0); EOS # 0.3 K/uL (0.0-0.7); EOS % 2.5 % (0.0-4.0); LYMPH # 2.6 K/uL (1.0-4.3); LYMPH % 21.3 % (20.0-40.0); MEAN CORPUSCULAR HEMOGLOBIN 27.3 pg (27.0-31.0); MEAN CORPUSCULAR HGB CONC 32.1 g/dL (33.0-37.0); MEAN PLATELET VOLUME 8.4 fL (7.2-11.7); MONO # 0.6 K/uL (0.0-0.8); MONO % 4.9 % (0.0-10.0); NRBC % 0.1 % (0.0-2.0); RED CELL DISTRIBUTION WIDTH 16.4 % (11.5-14.5); WHITE BLOOD COUNT 12.1 K/uL (4.8-10.8)
[2016-07-01 07:37] LABS: POTASSIUM 4.5 mmol/L (3.6-5.2)
[2016-07-01 07:39] LABS: ALB/GLOB RATIO 1.4 (1.0-2.1); BILIRUBIN,TOTAL 0.2 mg/dL (0.2-1.3); TOTAL PROTEIN 6.2 g/dL (6.3-8.3)
[2016-07-01 07:40] LABS: CALCIUM 8.6 mg/dl (8.6-10.4); MAGNESIUM 2.1 mg/dL (1.6-2.3)
[2016-07-01] MEDS: (Novolin R) Insulin Human Regular 100 units/ml vial SC SCH ×4 (07:43→22:43)
--- NOTE | 2016-07-01 08:07 | CP.PCM.PN ---
Subjective - Date & Time of Evaluation Date of Evaluation: 07/01/16 Time of Evaluation: 07:50 Objective - Vital Signs/Intake and Output Vital Signs (last 24 hours): Temp Pulse Resp BP Pulse Ox 97.8 F 86 18 138/76 94 L 07/01/16 07:24 07/01/16 07:24 07/01/16 07:24 07/01/16 07:24 07/01/16 07:24 - Medications Medications: Current Medications Amiodarone HCl (Cordarone) 200 mg PO DAILY [facility] Last Admin: 06/30/16 10:45 Dose: 200 mg Capsaicin (Trixaicin) 0 gm TOP TID PRN PRN Reason: Pain, Mild (1-3) Last Admin: 07/01/16 04:38 Dose: 1 gm Diltiazem HCl (Cardizem Cd) 240 mg PO DAILY [facility] Last Admin: 06/30/16 10:45 Dose: 240 mg Insulin Human Regular (Novolin R) 0 unit SC ACHS [facility] PRN Reason: Protocol Last Admin: 07/01/16 07:43 Dose: 1 unit Lidocaine (Lidoderm) 1 ea TD DAILY [facility] Last Admin: 06/30/16 16:49 Dose: 1 ea Pantoprazole Sodium (Protonix Inj) 40 mg IVP Q12H [facility] Last Admin: 07/01/16 04:37 Dose: 40 mg Tramadol HCl (Ultram) 25 mg PO TID [facility] Last Admin: 06/30/16 17:31 Dose: 25 mg - Labs Labs: 07/01/16 06:30 07/01/16 06:30 PT 13.4 SECONDS (9.7-12.2) H 06/30/16 06:02 INR 1.2 06/30/16 06:02 APTT 33 SECONDS (21-34) 06/30/16 06:02
[2016-07-01] MEDS: diltiaZEM 240 mg/24 Hours CD Cap PO SCH (09:12)
[2016-07-01] MEDS: Tramadol 25 mg PO SCH ×2 (09:13→18:03)
[2016-07-01] MEDS: Lidocaine 5% Patch TD SCH (09:14)
--- NOTE | 2016-07-01 09:53 | CP.PCM.PN ---
Subjective - Date & Time of Evaluation Date of Evaluation: 07/01/16 Time of Evaluation: 09:10 - Subjective Subjective: F/U anemia Denies RB, melena, ffever, CP, SOB, INGRAM, hematemesis,, hematuria. No BM. Reports lat pain on sides- which is better when moisturizer cream is applied. Objective - Vital Signs/Intake and Output Vital Signs (last 24 hours): Temp Pulse Resp BP Pulse Ox 97.8 F 86 18 138/76 94 L 07/01/16 07:24 07/01/16 07:24 07/01/16 07:24 07/01/16 07:24 07/01/16 07:24 - Medications Medications: Current Medications Amiodarone HCl (Cordarone) 200 mg PO DAILY [facility] Last Admin: 07/01/16 09:13 Dose: 200 mg Capsaicin (Trixaicin) 0 gm TOP TID PRN PRN Reason: Pain, Mild (1-3) Last Admin: 07/01/16 09:13 Dose: 60 gm Diltiazem HCl (Cardizem Cd) 240 mg PO DAILY [facility] Last Admin: 07/01/16 09:12 Dose: 240 mg Insulin Human Regular (Novolin R) 0 unit SC ACHS [facility] PRN Reason: Protocol Last Admin: 07/01/16 07:43 Dose: 1 unit Lidocaine (Lidoderm) 1 ea TD DAILY [facility] Last Admin: 07/01/16 09:14 Dose: 1 ea Pantoprazole Sodium (Protonix Inj) 40 mg IVP Q12H [facility] Last Admin: 07/01/16 04:37 Dose: 40 mg Tramadol HCl (Ultram) 25 mg PO TID [facility] Last Admin: 07/01/16 09:13 Dose: 25 mg - Labs Labs: 07/01/16 06:30 07/01/16 06:30 PT 13.4 SECONDS (9.7-12.2) H 06/30/16 06:02 INR 1.2 06/30/16 06:02 APTT 33 SECONDS (21-34) 06/30/16 06:02 - Constitutional Appears: Well - Respiratory Exam Respiratory Exam: Clear to Ausculation Bilateral - Cardiovascular Exam Cardiovascular Exam: RRR - GI/Abdominal Exam GI & Abdominal Exam: Soft, Normal Bowel Sounds. absent: Guarding, Tenderness, Mass - Extremities Exam Extremities Exam: absent: Calf Tenderness, Pedal Edema - Neurological Exam Neurological Exam: Alert, Awake, Oriented x3 - Skin Skin Exam: Intact Assessment and Plan (1) Anemia Assessment & Plan: No report of recent bleeding. Had dark stool before. No signs of blood at EGD or colon. OB +. No lesions seen that could be bleeding. Consider small bowel lesion/AVM. REC: follow Hb, outpatient capsule test of small bowel Status: Acute (2) Diabetes 1.5, managed as type 2 Status: Chronic (3) Gastritis Status: Acute (4) Abdominal pain Status: Acute (5) Leucocytosis Assessment & Plan: sl elev wbc Status: Acute (6) ESR raised Status: Acute
--- NOTE | 2016-07-01 13:40 | CP.PCM.PN ---
Subjective - Date & Time of Evaluation Date of Evaluation: 07/01/16 Time of Evaluation: 08:30 - Subjective Subjective: Medicine Note- Hospitalist Service Patient was seen and examined at bedside. SHe reports no acute complaints at this time. Denies any light headedness, chest pain, palpitations, dyspnea. No events overnight, per nursing. Objective - Vital Signs/Intake and Output Vital Signs (last 24 hours): Temp Pulse Resp BP Pulse Ox 97.8 F 86 18 138/76 94 L 07/01/16 07:24 07/01/16 07:24 07/01/16 07:24 07/01/16 07:24 07/01/16 07:24 - Medications Medications: Current Medications Amiodarone HCl (Cordarone) [address] [facility] Last Admin: 07/01/16 09:13 Dose: 200 mg Capsaicin (Trixaicin) 0 gm TOP TID PRN PRN Reason: Pain, Mild (1-3) Last Admin: 07/01/16 09:13 Dose: 60 gm Diltiazem HCl (Cardizem Cd) [address] [facility] Last Admin: 07/01/16 09:12 Dose: 240 mg Insulin Human Regular (Novolin R) 0 unit SC ACHS [facility] PRN Reason: Protocol Last Admin: 07/01/16 12:00 Dose: Not Given Lidocaine (Lidoderm) [address] [facility] Last Admin: 07/01/16 09:14 Dose: 1 ea Pantoprazole Sodium (Protonix Inj) [address] [facility] Last Admin: 07/01/16 04:37 Dose: 40 mg Tramadol HCl (Ultram) [address] [facility] Last Admin: 07/01/16 09:13 Dose: 25 mg - Labs Labs: 07/01/16 06:30 07/01/16 06:30 PT 13.4 SECONDS (9.7-12.2) H 06/30/16 06:02 INR 1.2 06/30/16 06:02 APTT 33 SECONDS (21-34) 06/30/16 06:02 - Constitutional Appears: Non-toxic, No Acute Distress - Head Exam Head Exam: ATRAUMATIC, NORMAL INSPECTION, NORMOCEPHALIC - Eye Exam Pupil Exam: NORMAL ACCOMODATION, PERRL - ENT Exam ENT Exam: Mucous Membranes Moist - Respiratory Exam Respiratory Exam: Clear to Ausculation Bilateral, NORMAL BREATHING PATTERN. absent: Prolonged Expiratory Phase, Rales, Rhonchi, Wheezes - Cardiovascular Exam Cardiovascular Exam: REGULAR RHYTHM, +S1, +S2 - GI/Abdominal Exam GI & Abdominal Exam: Soft, Normal Bowel Sounds. absent: Tenderness, Diminished Bowel Sounds, Hypoactive Bowel Sounds - Extremities Exam Extremities Exam: Normal Capillary Refill, Normal Inspection - Neurological Exam Neurological Exam: Alert, Awake, Oriented x3 - Psychiatric Exam Psychiatric exam: Normal Affect, Normal Mood - Skin Skin Exam: Dry, Intact, Normal Color, Warm Assessment and Plan - Assessment and Plan (Free Text) Assessment: Anemia secondary to GI Bleed Hbg - 5.9 on admission Hbg today 7.7 s/p 2 units PRBC Will transfuse one additional unit today and recheck Hgb tomorrow. If stable , will likely discharge Dr Reyes, GI consulted, help appreciated - rec capsult study, no source of bleeding on egc or colonoscopy EGD 06/29/16 - medium sized hiatal hernia, gastritis biopsied pathology: negative for H. pylori Colonoscopy 06/30/16 - moderate diverticulosis in the sigmoid and in the descending colon, non bleeding internal hemorrhoids Protonix 40mg IVP BID CHF exacerbation secondary to anemia BNP elevated - 1940 40 Lasix IVP x 1 dose Troponin negative x 3 EKG - NSR, x 3. no acute changes Patient with a hx of A fib on past [place] [facility] [place] ASA 81mg PO daily - held due to possible GI bleed Chest X ray - possible atelectasis, rales on examination (slight) Amiodarone 200mg PO daily Diltiazem 240mg PO daily Cardiology consulted, Dr. Zelaya help appreciated - asked to please take a look at Echo echocardiogram - LV hypertrophy, Normal EF, severe pulm HTN, mitral valve calcifications can't rule out vegetation Patient afebrile no signs of endocarditis Chest pain non cardiac in nature - like costochondritis ruled out [place]/dissection Trops negative x 3 meds as listed above Aorta US- no evidence of AAA Abd obstructive series - moderate constipation, no obstruction, no free air MARIA EUGENIA unsure of baseline Monitor BUN/CR 27/1.4 DM Accuchecks ACHS Insulin sliding scale Hold home glipizide HbA1c - 6 Constipation Lactulose x 1 dose, pt had colonoscopy today Prophylactic Measures Protonix 40mg IVP BID No chemical anticoagulation due to possible GI bleed Consistent Carb heart healthy diet
--- NOTE | 2016-07-01 21:50 | CP.PCM.CON ---
History of Present Illness - History of Present Illness History of Present Illness: Reason for consultation: Shortness of breath 81 year old Russian speaking female with PMH DM, HTN, a.fib (not on anticoagulation),came to the ED for weakness. Patient was found to have a Hgb of 5.9 in ED. She reports that [place] [facility] [place] , SOB and anemia. Also complaining of dry cough and chest pain which is right around her left breast. She describes it as a pressure like 10/10 pain that is worse with movement. She states that she is more SOb than normal for the past week and admits to leg swelling more than normal for her. She reports that her stool was dark/black and she has not seen any blood in her stool recently but saw blood once a month ago. She reports her last colonoscopy was 5 years ago. denies n/v/d, vision changes, numbness/tingling. She reports she is not on anticoagulation for her a.fib due to her anemia. She only takes ASA at home. Echocardiogram done in the hospital consistent with pulmonary hypertension. Also complaining of nocturnal snoring and feeling tired and sleepy during the daytime. Patient states that she only sleeps 3-4 hours with frequent awakening at night PMH: CHF?, Anemia, DM, HTN, a.fib (not on anticoagulation), Hep C (treated), GERD, cataract, restless leg PSH: breast lipoma removal Home meds: Amiodarone 200 mg PO daily, ASA 81 mg PO daily, Glipizide 10mg PO daily, Cardizem 240mg PO daily All: NKDA SH: Quit smoking 40yrs ago, denies EtOH and drug use FH: Non contributory Review of Systems - Review of Systems All systems: reviewed and no additional remarkable complaints except (Shortness of breath and chest pain) Past Patient History - Past Medical History & Family History Past Medical History?: Yes - Past Social History Smoking Status: Former Smoker Alcohol: None Drugs: Denies Home Situation {Lives}: With Family - CARDIAC Hx Congestive Heart Failure: Yes Hx Hypertension: Yes - PULMONARY Hx Respiratory Disorders: No - NEUROLOGICAL Hx Neurological Disorder: No - HEENT Hx HEENT Problems: No Hx Cataracts: Yes (bilateral, no surgery) - RENAL Hx Chronic Kidney Disease: No - ENDOCRINE/METABOLIC Hx Diabetes Mellitus Type 2: Yes - HEMATOLOGICAL/ONCOLOGICAL Hx Blood Disorders: No Hx Anemia: Yes Hx Hepatitis C: Yes - INTEGUMENTARY Hx Dermatological Problems: No - MUSCULOSKELETAL/RHEUMATOLOGICAL Hx Musculoskeletal Disorders: No Hx Arthritis: Yes Hx Falls: No - GASTROINTESTINAL Hx Gastrointestinal Disorders: Yes Hx Colostomy: Yes Hx Hemorrhoids: Yes Other/Comment: Dark Stool a Month ago - GENITOURINARY/GYNECOLOGICAL Hx Genitourinary Disorders: No - PSYCHIATRIC Hx Substance Use: No - SURGICAL HISTORY Hx Surgeries: No - ANESTHESIA Hx Anesthesia: Yes Hx Anesthesia Reactions: No Hx Malignant Hyperthermia: No Has any member of the family had a problem w/ anesthesia?: No Meds Allergies/Adverse Reactions: Allergies Allergy/AdvReac Type Severity Reaction Status Date / Time No Known Allergies Allergy Verified 07/04/15 12:04 - Medications Medications: Current Medications Amiodarone HCl (Cordarone) 200 mg PO DAILY [facility] Last Admin: 07/01/16 09:13 Dose: 200 mg Capsaicin (Trixaicin) 0 gm TOP TID PRN PRN Reason: Pain, Mild (1-3) Last Admin: 07/01/16 09:13 Dose: 60 gm Diltiazem HCl (Cardizem Cd) 240 mg PO DAILY [facility] Last Admin: 07/01/16 09:12 Dose: 240 mg Insulin Human Regular (Novolin R) 0 unit SC ACHS [facility] PRN Reason: Protocol Last Admin: 07/01/16 12:00 Dose: Not Given Lidocaine (Lidoderm) 1 ea TD DAILY [facility] Last Admin: 07/01/16 09:14 Dose: 1 ea Pantoprazole Sodium (Protonix Inj) 40 mg IVP Q12H [facility] Last Admin: 07/01/16 18:03 Dose: 40 mg Tramadol HCl (Ultram) 25 mg PO TID [facility] Last Admin: 07/01/16 18:03 Dose: 25 mg Physical Exam - Constitutional Appears: No Acute Distress - Head Exam Head Exam: ATRAUMATIC, NORMOCEPHALIC - Eye Exam Eye Exam: Normal appearance - ENT Exam ENT Exam: Mucous Membranes Moist - Neck Exam Neck exam: Positive for: Normal Inspection - Respiratory Exam Respiratory Exam: Clear to Auscultation Bilateral - Cardiovascular Exam Cardiovascular Exam: Irregular Rhythm - GI/Abdominal Exam GI & Abdominal Exam: Normal Bowel Sounds, Soft - Extremities Exam Extremities exam: Positive for: pedal edema - Neurological Exam Neurological exam: Alert, Oriented x3 Results - Vital Signs Recent Vital Signs: Last Vital Signs Temp 98.6 F 07/01/16 19:54 Pulse 66 07/01/16 19:54 Resp 20 07/01/16 19:54 BP 134/61 07/01/16 19:54 Pulse Ox 96 07/01/16 16:00 - Labs Result Diagrams: 07/01/16 06:30 07/01/16 06:30 Labs: Laboratory Results - last 24 hr 07/01/16 07/01/16 07/01/16 06:25 06:30 11:44 WBC 12.1 H RBC 2.83 L Hgb 7.7 L Hct 24.0 L MCV 85.0 MCH 27.3 MCHC 32.1 L RDW 16.4 H Plt Count 263 MPV 8.4 Neut % (Auto) 70.7 Lymph % (Auto) 21.3 [place] % (Auto) 4.9 Eos % (Auto) 2.5 Baso % (Auto) 0.6 Neut # 8.6 H Lymph # 2.6 [place] # 0.6 Eos # 0.3 Baso # 0.1 Sodium 142 Potassium 4.5 Chloride 100 Carbon Dioxide 28 Anion Gap 19 BUN 27 H Creatinine 1.4 H Est GFR ( Amer) 44 Est GFR (Non-Af Amer) 36 POC Glucose (mg/dL) 169 H 123 H Random Glucose 142 H Calcium 8.6 Phosphorus 5.0 H Magnesium 2.1 Total Bilirubin 0.2 AST 17 ALT 16 Alkaline Phosphatase 45 Total Protein 6.2 L Albumin 3.6 Globulin 2.6 Albumin/Globulin Ratio 1.4 Blood Type Antibody Screen 07/01/16 07/01/16 07/01/16 12:53 16:39 21:18 WBC RBC Hgb Hct MCV MCH MCHC RDW Plt Count MPV Neut % (Auto) Lymph % (Auto) [place] % (Auto) Eos % (Auto) Baso % (Auto) Neut # Lymph # [place] # Eos # Baso # Sodium Potassium Chloride Carbon Dioxide Anion Gap BUN Creatinine Est GFR ( Amer) Est GFR (Non-Af Amer) POC Glucose (mg/dL) 177 H 130 H Random Glucose Calcium Phosphorus Magnesium Total Bilirubin AST ALT Alkaline Phosphatase Total Protein Albumin Globulin Albumin/Globulin Ratio Blood Type B POSITIVE Antibody Screen Negative Assessment & Plan (1) Pulmonary hypertension Status: Acute Comment: Echocardiogram consistent with moderate to severe pulmonary hypertension. "r/o Secondary to COPD, rule out secondary to sleep apnea. Patient on amiodarone rule out pulmonary fibrosis. Considers CAT scan of the chest. Sleep study and PFT as outpatient. Start nebulizer treatment and inhaled steroids (2) Atrial fibrillation with controlled ventricular response Status: Acute (3) Dyspnea Status: Acute
[2016-07-02 06:22] LABS: BASO # 0.1 K/uL (0.0-0.2); BASO % 0.7 % (0.0-2.0); EOS # 0.4 K/uL (0.0-0.7); EOS % 2.7 % (0.0-4.0); HEMATOCRIT 28.2 % (34.0-47.0); LYMPH # 2.6 K/uL (1.0-4.3); MEAN CELL VOLUME 83.5 fL (81.0-99.0); MEAN CORPUSCULAR HEMOGLOBIN 27.5 pg (27.0-31.0); MONO # 0.6 K/uL (0.0-0.8); MONO % 4.5 % (0.0-10.0); WHITE BLOOD COUNT 12.8 K/uL (4.8-10.8)
[2016-07-02 06:35] LABS: POTASSIUM 5.1 mmol/L (3.6-5.2)
[2016-07-02 06:38] LABS: ALB/GLOB RATIO 1.3 (1.0-2.1); CALCIUM 8.7 mg/dl (8.6-10.4); TOTAL PROTEIN 6.7 g/dL (6.3-8.3)
[2016-07-02] MEDS: Ipratropium 0.02% Inhal Soln (0.5 mg/2.5 ml) UD IH PRN ×3 (07:25→19:08)
[2016-07-02] MEDS: Budesonide 0.5 mg/2 ml Inhal Susp UD INH SCH ×2 (07:25→19:08)
[2016-07-02] MEDS: (Novolin R) Insulin Human Regular 100 units/ml vial SC SCH ×2 (08:14→12:31)
--- NOTE | 2016-07-02 08:59 | CP.PCM.PN ---
Subjective - Date & Time of Evaluation Date of Evaluation: 07/02/16 Time of Evaluation: 08:35 Objective - Vital Signs/Intake and Output Vital Signs (last 24 hours): Temp Pulse Resp BP Pulse Ox 97.8 F 65 20 134/76 99 07/02/16 08:52 07/02/16 08:52 07/02/16 08:52 07/02/16 08:52 07/02/16 08:52 Intake and Output: 07/02/16 07/02/16 06:59 18:59 Intake Total 850 Balance 850 - Medications Medications: Current Medications Amiodarone HCl (Cordarone) 200 mg PO DAILY [facility] Last Admin: 07/01/16 09:13 Dose: 200 mg Budesonide (Pulmicort Respules) 0.5 mg INH RQ12 [facility] Last Admin: 07/02/16 07:25 Dose: 0.5 mg Capsaicin (Trixaicin) 0 gm TOP TID PRN PRN Reason: Pain, Mild (1-3) Last Admin: 07/01/16 23:35 Dose: 60 gm Diltiazem HCl (Cardizem Cd) 240 mg PO DAILY [facility] Last Admin: 07/01/16 09:12 Dose: 240 mg Insulin Human Regular (Novolin R) 0 unit SC ACHS [facility] PRN Reason: Protocol Last Admin: 07/02/16 08:14 Dose: 2 unit Ipratropium [place] (Atrovent) 0.5 mg IH RQ6 PRN PRN Reason: Shortness of Breath Last Admin: 07/02/16 07:25 Dose: 0.5 mg Lidocaine (Lidoderm) 1 ea TD DAILY [facility] Last Admin: 07/01/16 09:14 Dose: 1 ea Pantoprazole Sodium (Protonix Inj) 40 mg IVP Q12H [facility] Last Admin: 07/02/16 04:49 Dose: 40 mg Polyethylene Glycol (Miralax) 17 gm PO ONCE ONE Stop: 07/02/16 08:58 Tramadol HCl (Ultram) 25 mg PO TID [facility] Last Admin: 07/01/16 18:03 Dose: 25 mg - Labs Labs: 07/02/16 06:13 07/02/16 06:13 PT 13.4 SECONDS (9.7-12.2) H 06/30/16 06:02 INR 1.2 06/30/16 06:02 APTT 33 SECONDS (21-34) 06/30/16 06:02
[2016-07-02] MEDS ORDERED: POLYETHYLENE GLYCOL 3350 17 GM/Dose PACKET PO ONE (09:15)
[2016-07-02] MEDS: diltiaZEM 240 mg/24 Hours CD Cap PO SCH (09:18)
[2016-07-02] MEDS: Lidocaine 5% Patch TD SCH (09:18)
[2016-07-02] MEDS: Tramadol 25 mg PO SCH ×3 (09:19→18:35)
--- NOTE | 2016-07-02 10:50 | CP.PCM.PN ---
Subjective - Date & Time of Evaluation Date of Evaluation: 07/02/16 Time of Evaluation: 10:10 - Subjective Subjective: F/U anemia. Reports constipation. Feels SOB slightly today. Family is present. Denies RB, melena, abdom pain, fever, chills, SZ, LOC, INGRAM, Objective - Vital Signs/Intake and Output Vital Signs (last 24 hours): Temp Pulse Resp BP Pulse Ox 97.8 F 65 20 134/76 99 07/02/16 08:52 07/02/16 08:52 07/02/16 08:52 07/02/16 08:52 07/02/16 08:52 Intake and Output: 07/02/16 07/02/16 06:59 18:59 Intake Total 850 Balance 850 - Medications Medications: Current Medications Amiodarone HCl (Cordarone) 200 mg PO DAILY [facility] Last Admin: 07/02/16 09:18 Dose: 200 mg Budesonide (Pulmicort Respules) 0.5 mg INH RQ12 [facility] Last Admin: 07/02/16 07:25 Dose: 0.5 mg Diltiazem HCl (Cardizem Cd) 240 mg PO DAILY [facility] Last Admin: 07/02/16 09:18 Dose: 240 mg Insulin Human Regular (Novolin R) 0 unit SC ACHS [facility] PRN Reason: Protocol Last Admin: 07/02/16 08:14 Dose: 2 unit Ipratropium [place] (Atrovent) 0.5 mg IH RQ6 PRN PRN Reason: Shortness of Breath Last Admin: 07/02/16 07:25 Dose: 0.5 mg Lidocaine (Lidoderm) 1 ea TD DAILY [facility] Last Admin: 07/02/16 09:18 Dose: 1 ea Pantoprazole Sodium (Protonix Ec Tab) 40 mg PO DAILY [facility] Tramadol HCl (Ultram) 25 mg PO TID [facility] Last Admin: 07/02/16 09:19 Dose: 25 mg - Labs Labs: 07/02/16 06:13 07/02/16 06:13 PT 13.4 SECONDS (9.7-12.2) H 06/30/16 06:02 INR 1.2 06/30/16 06:02 APTT 33 SECONDS (21-34) 06/30/16 06:02 - Constitutional Appears: Well - Respiratory Exam Respiratory Exam: Clear to Ausculation Bilateral - Cardiovascular Exam Cardiovascular Exam: RRR - GI/Abdominal Exam GI & Abdominal Exam: Soft, Normal Bowel Sounds. absent: Tenderness, Mass, Rebound - Extremities Exam Extremities Exam: absent: Calf Tenderness - Neurological Exam Neurological Exam: Alert, Awake, Oriented x3 Assessment and Plan (1) Anemia Assessment & Plan: No bleeding. OB +. Transfused. Hb better. Rec: check Hb, consider Hematology evaluation. Consider capsule study as outpatient. Status: Acute (2) Diabetes 1.5, managed as type 2 Status: Chronic (3) Gastritis Status: Acute (4) Abdominal pain Assessment & Plan: Better Status: Acute (5) Leucocytosis Status: Acute (6) ESR raised Status: Acute (7) Dyspnea Assessment & Plan: after transfusion. Status: Acute
[2016-07-02] MEDS: Pantoprazole 40 mg EC Tab PO SCH (11:02)
--- NOTE | 2016-07-02 19:52 | CT ---
CT scan chest dated 07/02/2016. History: Rule out pulmonary fibrosis. Contiguous helical/transaxial sections of the chest performed in standard fashion without oral or intravenous contrast material. Additional 2 dimensional sagittal and coronal reformats provided. Radiation dose. Total DLP = 758.83 mGy-cm. Findings: The heart is borderline/mildly enlarged. Dense mitral valve calcification. No significant pericardial effusion. Ascending thoracic aorta measures approximately 3.57 cm. Descending thoracic aorta measures approximately 2.69 cm. Pulmonary trunk measures approximately 2.87 cm. Few small nonspecific mediastinal lymph nodes. Evaluation for hilar adenopathy limited due to the lack of circulating intravenous contrast material. Central airways are midline and patent. No endobronchial lesions. Small hiatal hernia with slight wall thickening of the distal esophagus which could be due to protrusion of gastric mucosa. Possibility of esophagitis not excluded. Mild pulmonary vascular congestion with mosaic appearance of the lung parenchyma and ground-glass opacities. Suspect concomitant air-trapping and/or possibly pneumonitis. Scattered areas of atelectasis also seen in both lung bases as well as in the lingular and middle lobe regions and left upper lobe. Small bilateral effusions are present. No evidence of obvious interstitial fibrosis seen at this time. Apparent intraluminal gallbladder calculi. Followup gallbladder ultrasound recommended for further evaluation. Left adrenal nodule measuring approximately 16.6 mm. Slightly nodular appearing right adrenal gland. Multilevel degenerative spondylosis of the thoracic spine. Several tiny radiopaque densities seen in the right lung breast likely representing small calcified fibroadenomas. Impression: No evidence of on interstitial fibrosis. Mild central pulmonary vascular congestion with mosaic appearance of the lung parenchyma with ground-glass opacities; suspect concomitant sequela of air trapping or pneumonitis. Scattered areas of chronic appearing atelectasis. Nodular opacities also noted in the right anterior upper lung field. . Small bilateral effusions. .
--- NOTE | 2016-07-02 21:10 | CP.PCM.PN ---
<LandryHero - Last Filed: 07/02/16 21:07> Subjective - Date & Time of Evaluation Date of Evaluation: 07/02/16 Time of Evaluation: 08:05 - Subjective Subjective: Medicine Note- Hospitalist Service Patient was seen and examined at bedside. Patient reports that she still has not had a bowel, last BM was during colonoscopy prep. Patient reports no additional acute complaints. No events overnight, per nursing. Patient expresses desire to go home. I explained to her that Dr. Kessler requests she stay until the CT is read and he clears her because he is concerned the amiodarone may have caused interstitial fibrosis. Patient understands and agrees with plan. Objective - Vital Signs/Intake and Output Vital Signs (last 24 hours): Temp Pulse Resp BP Pulse Ox 98.2 F 64 20 139/66 95 07/02/16 15:35 07/02/16 17:15 07/02/16 15:35 07/02/16 15:35 07/02/16 15:35 - Medications Medications: Current Medications Amiodarone HCl (Cordarone) 200 mg PO DAILY [facility] Last Admin: 07/02/16 09:18 Dose: 200 mg Budesonide (Pulmicort Respules) 0.5 mg INH RQ12 [facility] Last Admin: 07/02/16 19:08 Dose: 0.5 mg Diltiazem HCl (Cardizem Cd) 240 mg PO DAILY [facility] Last Admin: 07/02/16 09:18 Dose: 240 mg Insulin Human Regular (Novolin R) 0 unit SC ACHS [facility] PRN Reason: Protocol Last Admin: 07/02/16 12:31 Dose: Not Given Ipratropium [place] (Atrovent) 0.5 mg IH RQ6 PRN PRN Reason: Shortness of Breath Last Admin: 07/02/16 19:08 Dose: 0.5 mg Lidocaine (Lidoderm) 1 ea TD DAILY [facility] Last Admin: 07/02/16 09:18 Dose: 1 ea Pantoprazole Sodium (Protonix Ec Tab) 40 mg PO DAILY [facility] Last Admin: 07/02/16 11:02 Dose: 40 mg Tramadol HCl (Ultram) 25 mg PO TID [facility] Last Admin: 07/02/16 18:35 Dose: 25 mg - Labs Labs: 07/02/16 06:13 07/02/16 06:13 PT 13.4 SECONDS (9.7-12.2) H 06/30/16 06:02 INR 1.2 06/30/16 06:02 APTT 33 SECONDS (21-34) 06/30/16 06:02 - Constitutional Appears: Non-toxic, No Acute Distress - Head Exam Head Exam: ATRAUMATIC, NORMAL INSPECTION, NORMOCEPHALIC - Eye Exam Pupil Exam: NORMAL ACCOMODATION - ENT Exam ENT Exam: Mucous Membranes Moist - Respiratory Exam Respiratory Exam: Clear to Ausculation Bilateral, Rales (bilaterally), NORMAL BREATHING PATTERN. absent: Rhonchi, Wheezes, Respiratory Distress - Cardiovascular Exam Cardiovascular Exam: REGULAR RHYTHM, +S1, +S2 - GI/Abdominal Exam GI & Abdominal Exam: Soft, Normal Bowel Sounds. absent: Tenderness, Diminished Bowel Sounds, Hernia, Hypoactive Bowel Sounds - Extremities Exam Extremities Exam: Normal Capillary Refill, Normal Inspection - Neurological Exam Neurological Exam: Alert, Awake, Oriented x3 - Psychiatric Exam Psychiatric exam: Normal Affect, Normal Mood - Skin Skin Exam: Dry, Intact, Normal Color, Warm Assessment and Plan - Assessment and Plan (Free Text) Assessment: Anemia secondary to GI Bleed Hbg - 5.9 on admission Hbg today 7.7 s/p [address] Reyes, GI consulted, help appreciated - rec capsult study, no source of bleeding on egc or colonoscopy EGD 06/29/16 - medium sized hiatal hernia, gastritis biopsied pathology: negative for H. pylori Colonoscopy 06/30/16 - moderate diverticulosis in the sigmoid and in the descending colon, non bleeding internal hemorrhoids Protonix 40mg IVP BID CHF exacerbation secondary to anemia BNP elevated - 1940 40 Lasix IVP x 1 dose Troponin negative x 3 EKG - NSR, x 3. no acute changes Patient with a hx of A fib on past [place] [facility] [place] antico[place] ASA 81mg PO daily - held due to possible GI bleed Chest X ray - possible atelectasis, rales on examination (slight) Amiodarone 200mg PO daily Diltiazem 240mg PO daily Cardiology consulted, Dr. Zelaya help appreciated - asked to please take a look at Echo echocardiogram - LV hypertrophy, Normal EF, severe pulm HTN, mitral valve calcifications can't rule out vegetation Patient afebrile no signs of endocarditis Chest pain non cardiac in nature - like costochondritis ruled out FL/dissection Trops negative x 3 meds as listed above Aorta US- no evidence of AAA Abd obstructive series - moderate constipation, no obstruction, no free air Dyspnea Consulted Pulm- Dr. Kessler Started on Ipratropium 0.5mg IH RQ6 PRN Started on Budesonide 0.5mg INH Q12h CT Chest w/o contrast- No evidence of interstitial fibrosis. Mild central pulmonary vascular congestion with mosaic appearance of the lung aprenchyma with ground-glass opacities; suspect concomitant sequla of air trapping or pneumonitis. (Please see full report) MARIA EUGENIA unsure of baseline Monitor BUN/CR 27/1.4 DM Accuchecks ACHS Insulin sliding scale Hold home glipizide HbA1c - 6 Prophylactic Measures Protonix 40mg IVP BID No chemical anticoagulation due to possible GI bleed Consistent Carb heart healthy diet Discharge pending clearance from Dr. Kessler. Patient will need to followup with cardiology in regards to antiplatelet and anticoagulation therapy. Patient will need followup with GI, Dr. Limon/Amy in 3 weeks. <Nika Junior V - Last Filed: 07/02/16 23:35> Objective - Vital Signs/Intake and Output Vital Signs (last 24 hours): Temp Pulse Resp BP Pulse Ox 98.2 F 73 20 151/61 H 91 L 07/02/16 22:17 07/02/16 22:17 07/02/16 22:17 07/02/16 22:17 07/02/16 22:17 - Medications Medications: Current Medications Amiodarone HCl (Cordarone) 200 mg PO DAILY [facility] Last Admin: 07/02/16 09:18 Dose: 200 mg Budesonide (Pulmicort Respules) 0.5 mg INH RQ12 [facility] Last Admin: 07/02/16 19:08 Dose: 0.5 mg Diltiazem HCl (Cardizem Cd) 240 mg PO DAILY [facility] Last Admin: 07/02/16 09:18 Dose: 240 mg Insulin Human Regular (Novolin R) 0 unit SC ACHS [facility] PRN Reason: Protocol Last Admin: 07/02/16 12:31 Dose: Not Given Ipratropium [place] (Atrovent) 0.5 mg IH RQ6 PRN PRN Reason: Shortness of Breath Last Admin: 07/02/16 19:08 Dose: 0.5 mg Lidocaine (Lidoderm) 1 ea TD DAILY [facility] Last Admin: 07/02/16 09:18 Dose: 1 ea Pantoprazole Sodium (Protonix Ec Tab) 40 mg PO DAILY [facility] Last Admin: 07/02/16 11:02 Dose: 40 mg Tramadol HCl (Ultram) 25 mg PO TID [facility] Last Admin: 07/02/16 18:35 Dose: 25 mg - Labs Labs: 07/02/16 06:13 07/02/16 06:13 PT 13.4 SECONDS (9.7-12.2) H 06/30/16 06:02 INR 1.2 06/30/16 06:02 APTT 33 SECONDS (21-34) 06/30/16 06:02 Attending/Attestation - Attestation I have personally seen and examined this patient.: Yes I have fully participated in the care of the patient.: Yes I have reviewed all pertinent clinical information, including history, physical exam and plan: Yes Notes (Text): Patient seen, examined, and case discussed with day-time resident. Patient seen at bedside this morning. Patient completed blood transfusion from yesterday. hemoglobin improved to 9.[address] chest per pulmonary. 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 Anemia secondary to GI Bleed Hbg - 5.9 on admission Hbg today 9.3 s/p [address] Reyes, GI consulted, help appreciated - rec capsult study, no source of bleeding on egc or colonoscopy EGD 06/29/16 - medium sized hiatal hernia, gastritis biopsied pathology: negative for H. pylori Colonoscopy 06/30/16 - moderate diverticulosis in the sigmoid and in the descending colon, non bleeding internal hemorrhoids Protonix 40mg PO daily iron studies normal positive stool occult blood CHF exacerbation acute on chronic diastolic heart failure BNP elevated - 1940 Troponin negative x 3 EKG - NSR, x 3. no acute changes Patient with a hx of A fib on past admission at [facility] [place] not on anticoagulation ASA 81mg PO daily - held due to possible GI bleed Chest X ray - possible atelectasis, rales on examination (slight) Amiodarone 200mg PO daily Diltiazem 240mg PO daily Cardiology consulted, Dr. Zelaya help appreciated Echo (06/29/16): left ventricle is normal size, borderline concentric left ventricular hypertrophy, left ventricular function is normal, left ventricular ejection is within normal range. mitral valve leaflefts are thicken and calcified. Mild regurgitation. Moderate to severe pulmonary hypertension, sclerotic aortic valve Pulmonary hypertension Pulmonary (Dr. Kessler) on board CT Chest w/o contrast- No evidence of interstitial fibrosis. Mild central pulmonary vascular congestion with mosaic appearance of the lung aprenchyma with ground-glass opacities; suspect concomitant sequla of air trapping or pneumonitis. 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 mitral valve leaflefts are thicken and calcified. Mild regurgitation. Moderate to severe pulmonary hypertension, sclerotic aortic valve Dyspnea Consulted Pulm- Dr. Kessler Started on Ipratropium 0.5mg IH RQ6 PRN Started on Budesonide 0.5mg INH Q12h CT Chest w/o contrast- No evidence of interstitial fibrosis. Mild central pulmonary vascular congestion with mosaic appearance of the lung aprenchyma with ground-glass opacities; suspect concomitant sequla of air trapping or pneumonitis. (Please see full report) Acute renal insufficiency unsure of baseline Monitor BUN/CR 27/1.4 Diabetes type 2 Accuchecks ACHS Insulin sliding scale Hold home glipizide HbA1c - 6 controlled Leukocytosis Blood cultures negative X 48 hours X2 monitor for fever Prophylactic Measures Protonix 40mg PO daily No chemical anticoagulation due to possible GI bleed Consistent Carb heart healthy diet Discharge pending clearance from Dr. Kessler, who will see the patient tomorrow and review CT chest. Patient will need to followup with cardiology in regards to antiplatelet and anticoagulation therapy. Patient will need followup with GI, Dr. Limon/Amy in 3 weeks. Recommended for outpatient video capsule study. recommended for heme-onc per GI.
--- NOTE | 2016-07-03 00:05 | CARD ---
APPROVED REPORT EKG Measurement Heart [id number] <Conclusion> Normal sinus rhythm Normal ECG
[2016-07-03 06:35] LABS: POTASSIUM 5.1 mmol/L (3.6-5.2)
[2016-07-03 06:37] LABS: ALB/GLOB RATIO 1.5 (1.0-2.1); BILIRUBIN,TOTAL 0.5 mg/dL (0.2-1.3); TOTAL PROTEIN 6.4 g/dL (6.3-8.3)
[2016-07-03 06:38] LABS: CALCIUM 8.6 mg/dl (8.6-10.4)
[2016-07-03 06:54] LABS: BASO # 0.1 K/uL (0.0-0.2); BASO % 0.6 % (0.0-2.0); EOS # 0.4 K/uL (0.0-0.7); HEMATOCRIT 28.2 % (34.0-47.0); LYMPH # 2.4 K/uL (1.0-4.3); LYMPH % 18.9 % (20.0-40.0); MEAN PLATELET VOLUME 8.1 fL (7.2-11.7); MONO # 0.6 K/uL (0.0-0.8); MONO % 4.9 % (0.0-10.0); NRBC % 0.1 % (0.0-2.0); RED CELL DISTRIBUTION WIDTH 16.6 % (11.5-14.5); WHITE BLOOD COUNT 12.7 K/uL (4.8-10.8)
[2016-07-03 07:07] LABS: THYROID STIMULATING HORMONE 27.9 mIU/L (0.46-4.68)
[2016-07-03] MEDS: Budesonide 0.5 mg/2 ml Inhal Susp UD INH SCH (07:50)
[2016-07-03] MEDS: Ipratropium 0.02% Inhal Soln (0.5 mg/2.5 ml) UD IH PRN (07:50)
[2016-07-03] MEDS: (Novolin R) Insulin Human Regular 100 units/ml vial SC SCH ×2 (08:03→11:43)
--- NOTE | 2016-07-03 08:05 | CP.PCM.PN ---
Subjective - Date & Time of Evaluation Date of Evaluation: 07/03/16 Time of Evaluation: 07:45 - Subjective Subjective: Cardiology Progress Note for Dr. Zelaya Patient seen and examined at bedside. There were no acute overnight events. She complains of constipation. She has not had a BM since her colonoscopy. She denies having CP, SOB, n/v/d, numbness/tingling. Objective - Vital Signs/Intake and Output Vital Signs (last 24 hours): Temp Pulse Resp BP Pulse Ox 98.2 F 72 20 136/77 96 07/02/16 23:20 07/02/16 23:20 07/02/16 23:20 07/02/16 23:20 07/02/16 23:20 Intake and Output: 07/03/16 07/03/16 06:59 18:59 Intake Total 540 Output Total 0 Balance 540 - Medications Medications: Current Medications Amiodarone HCl (Cordarone) 200 mg PO DAILY [facility] Last Admin: 07/02/16 09:18 Dose: 200 mg Budesonide (Pulmicort Respules) 0.5 mg INH RQ12 [facility] Last Admin: 07/03/16 07:50 Dose: 0.5 mg Diltiazem HCl (Cardizem Cd) 240 mg PO DAILY [facility] Last Admin: 07/02/16 09:18 Dose: 240 mg Insulin Human Regular (Novolin R) 0 unit SC ACHS [facility] PRN Reason: Protocol Last Admin: 07/02/16 12:31 Dose: Not Given Ipratropium [place] (Atrovent) 0.5 mg IH RQ6 PRN PRN Reason: Shortness of Breath Last Admin: 07/03/16 07:50 Dose: 0.5 mg Lidocaine (Lidoderm) 1 ea TD DAILY [facility] Last Admin: 07/02/16 09:18 Dose: 1 ea Pantoprazole Sodium (Protonix Ec Tab) 40 mg PO DAILY [facility] Last Admin: 07/02/16 11:02 Dose: 40 mg Tramadol HCl (Ultram) 25 mg PO TID [facility] Last Admin: 07/02/16 18:35 Dose: 25 mg - Labs Labs: 07/03/16 06:14 07/03/16 06:14 PT 13.4 SECONDS (9.7-12.2) H 06/30/16 06:02 INR 1.2 06/30/16 06:02 APTT 33 SECONDS (21-34) 06/30/16 06:02 - Constitutional Appears: No Acute Distress - Head Exam Head Exam: ATRAUMATIC, NORMAL INSPECTION, NORMOCEPHALIC - Eye Exam Eye Exam: Normal appearance Pupil Exam: NORMAL ACCOMODATION - ENT Exam ENT Exam: Mucous Membranes Moist, Normal Exam - Neck Exam Neck Exam: Normal Inspection - Respiratory Exam Respiratory Exam: Clear to Ausculation Bilateral, NORMAL BREATHING PATTERN. absent: Rales, Wheezes, Respiratory Distress - Cardiovascular Exam Cardiovascular Exam: REGULAR RHYTHM, +S1, +S2. absent: Rubs, Murmur - GI/Abdominal Exam GI & Abdominal Exam: Soft, Normal Bowel Sounds. absent: Rigid, Tenderness, Rebound - Extremities Exam Extremities Exam: Full ROM, Normal Capillary Refill - Neurological Exam Neurological Exam: Alert, Awake, CN II-XII Intact, Oriented x3 - Psychiatric Exam Psychiatric exam: Normal Affect, Normal Mood - Skin Skin Exam: Dry, Intact, Normal Color, Warm Assessment and Plan - Assessment and Plan (Free Text) Assessment: This is a 81Y F with PMH DM, HTN, a.fib (not on anticoagulation) admitted for 1) Anemia secondary to GI bleed 2) A.fib - rate and rhythm controlled 3) HTN 4) CHF with preserved EF 5) MARIA EUGENIA- improving 6) DM 7) Hypothyroidism 8) Rib pain- most likely Costochondritis Plan: - Hgb 9.3-stable - Continue to trend CBC - Echo showed EF of 83%, thickened mitral valve with moderate regurgitation and moderate to severe pulmonary HTN, vegetation cannot be ruled out on echo - Blood culture negative, pt afebrile, endocarditis unlikely - Continue Amiodarone and Cardizem - rate and rhythm controlled - EGD and colonoscopy did not show source of bleed- may need video capsule to r/ o small bowel bleed - may need synthroid as per primary for hypothryoidism GI ppx: Protonix DVT ppx: SCDs Case seen, reviewed and discussed with Dr. Garcia Wells PGY1
[2016-07-03 08:31] VITALS: BP 147/68; RESP 18; TEMP 98.7; O2SAT 94
[2016-07-03 08:52] VITALS: PULSE 78
[2016-07-03] MEDS: Lidocaine 5% Patch TD SCH (08:59)
[2016-07-03] MEDS: diltiaZEM 240 mg/24 Hours CD Cap PO SCH (09:00)
[2016-07-03] MEDS: Pantoprazole 40 mg EC Tab PO SCH (09:00)
[2016-07-03] MEDS: Tramadol 25 mg PO SCH (09:03)
--- NOTE | 2016-07-03 10:45 | CP.PCM.PN ---
Subjective - Date & Time of Evaluation Date of Evaluation: 07/03/16 Time of Evaluation: 09:00 - Subjective Subjective: Patient seen and examined. Patient states breathing is better Complaining of slight cough Denies any chest pain Afebrile CAT scan of the chest consistent with groundglass haziness and small effusions Objective - Vital Signs/Intake and Output Vital Signs (last 24 hours): Temp Pulse Resp BP Pulse Ox 98.7 F 78 18 147/68 94 L 07/03/16 07:25 07/03/16 08:00 07/03/16 07:25 07/03/16 07:25 07/03/16 07:25 Intake and Output: 07/03/16 07/03/16 06:59 18:59 Intake Total 540 Output Total 0 Balance 540 - Medications Medications: Current Medications Amiodarone HCl (Cordarone) 200 mg PO DAILY [facility] Last Admin: 07/03/16 09:00 Dose: 200 mg Budesonide (Pulmicort Respules) 0.5 mg INH RQ12 [facility] Last Admin: 07/03/16 07:50 Dose: 0.5 mg Diltiazem HCl (Cardizem Cd) 240 mg PO DAILY [facility] Last Admin: 07/03/16 09:00 Dose: 240 mg Insulin Human Regular (Novolin R) 0 unit SC ACHS [facility] PRN Reason: Protocol Last Admin: 07/03/16 08:03 Dose: Not Given Ipratropium [place] (Atrovent) 0.5 mg IH RQ6 PRN PRN Reason: Shortness of Breath Last Admin: 07/03/16 07:50 Dose: 0.5 mg Lidocaine (Lidoderm) 1 ea TD DAILY [facility] Last Admin: 07/03/16 08:59 Dose: 1 ea Pantoprazole Sodium (Protonix Ec Tab) 40 mg PO DAILY [facility] Last Admin: 07/03/16 09:00 Dose: 40 mg Tramadol HCl (Ultram) 25 mg PO TID [facility] Last Admin: 07/03/16 09:03 Dose: 25 mg - Labs Labs: 07/03/16 06:14 07/03/16 06:14 PT 13.4 SECONDS (9.7-12.2) H 06/30/16 06:02 INR 1.2 06/30/16 06:02 APTT 33 SECONDS (21-34) 06/30/16 06:02 - Head Exam Head Exam: ATRAUMATIC, NORMOCEPHALIC - Eye Exam Eye Exam: Normal appearance - ENT Exam ENT Exam: Mucous Membranes Moist - Neck Exam Neck Exam: Normal Inspection - Respiratory Exam Respiratory Exam: Rales - GI/Abdominal Exam GI & Abdominal Exam: Soft, Normal Bowel Sounds - Extremities Exam Extremities Exam: Pedal Edema Assessment and Plan (1) Pulmonary hypertension Assessment & Plan: Rule out secondary to sleep apnea versus COPD CAT scan of the chest consistent with groundglass haziness and bilateral pleural effusion which could be secondary to CHF/diastolic dysfunction. Considered GREG, ESR and rheumatoid factor Okay to discharge home on albuterol, inhaled steroids Status: Acute (2) Atrial fibrillation with controlled ventricular response Status: Acute (3) Dyspnea Status: Acute
--- NOTE | 2016-07-03 11:23 | CP.PCM.DIS ---
<Debi Valencia - Last Filed: 07/03/16 15:29> Provider - Provider Date of Admission: 06/28/16 12:09 Attending physician: Ramy Sheets MD Consults: Dr. Stockton - GI Dr. Zelaya - Cardiology Dr. Kessler - pulmonology Time Spent in preparation of Discharge (in minutes): 35 Hospital Course - Lab Results Lab Results: Micro Results 06/30/16 17:00 Blood Blood Culture - Preliminary NO GROWTH AFTER 48 HOURS 06/30/16 16:30 Blood Blood Culture - Preliminary NO GROWTH AFTER 48 HOURS Most Recent Lab Values WBC 12.7 K/uL (4.8-10.8) H 07/03/16 06:14 RBC 3.31 Mil/uL (3.80-5.20) L 07/03/16 06:14 Hgb 9.3 g/dL (11.0-16.0) L 07/03/16 06:14 Hct 28.2 % (34.0-47.0) L 07/03/16 06:14 MCV 85.0 fL (81.0-99.0) 07/03/16 06:14 MCH 28.0 pg (27.0-31.0) 07/03/16 06:14 MCHC 33.0 g/dL (33.0-37.0) 07/03/16 06:14 RDW 16.6 % (11.5-14.5) H 07/03/16 06:14 Plt Count 246 K/uL (130-400) 07/03/16 06:14 MPV 8.1 fL (7.2-11.7) 07/03/16 06:14 Neut % (Auto) 72.6 % (50.0-75.0) 07/03/16 06:14 Lymph % (Auto) 18.9 % (20.0-40.0) L 07/03/16 06:14 Nelson % (Auto) 4.9 % (0.0-10.0) 07/03/16 06:14 Eos % (Auto) 3.0 % (0.0-4.0) 07/03/16 06:14 Baso % (Auto) 0.6 % (0.0-2.0) 07/03/16 06:14 Neut # 9.2 K/uL (1.8-7.0) H 07/03/16 06:14 Lymph # 2.4 K/uL (1.0-4.3) 07/03/16 06:14 Nelson # 0.6 K/uL (0.0-0.8) 07/03/16 06:14 Eos # 0.4 K/uL (0.0-0.7) 07/03/16 06:14 Baso # 0.1 K/uL (0.0-0.2) 07/03/16 06:14 ESR 43 mm/hr (0-20) H 06/30/16 16:57 PT 13.4 SECONDS (9.7-12.2) H 06/30/16 06:02 INR 1.2 06/30/16 06:02 APTT 33 SECONDS (21-34) 06/30/16 06:02 Sodium 137 mmol/L (132-148) 07/03/16 06:14 Potassium 5.1 mmol/L (3.6-5.2) 07/03/16 06:14 Chloride 98 mmol/L (98-107) 07/03/16 06:14 Carbon Dioxide 27 mmol/L (22-30) 07/03/16 06:14 Anion Gap 17 (10-20) 07/03/16 06:14 BUN 23 mg/dL (7-17) H 07/03/16 06:14 Creatinine 1.3 MG/DL (0.7-1.2) H 07/03/16 06:14 Est GFR ( Amer) 48 07/03/16 06:14 Est GFR (Non-Af Amer) 40 07/03/16 06:14 POC Glucose (mg/dL) 127 mg/dL (65-110) H 07/03/16 06:12 Random Glucose 132 mg/dL (65-105) H 07/03/16 06:14 Hemoglobin A1c 6.0 % (4.2-6.5) 06/29/16 07:09 Calcium 8.6 mg/dl (8.6-10.4) 07/03/16 06:14 Phosphorus 5.0 mg/dL (2.5-4.5) H 07/01/16 06:30 Magnesium 2.1 mg/dL (1.6-2.3) 07/01/16 06:30 Iron 116 ug/dL (37-170) 06/28/16 19:38 TIBC 401 ug/dL (250-450) 06/28/16 19:38 % Saturation 29 (20-55) 06/28/16 19:38 Ferritin 11.7 ng/mL 06/28/16 19:38 Total Bilirubin 0.5 mg/dL (0.2-1.3) 07/03/16 06:14 AST 19 U/L (14-36) 07/03/16 06:14 ALT 19 U/L (9-52) 07/03/16 06:14 Alkaline Phosphatase 40 U/L (38-126) 07/03/16 06:14 Total Creatine Kinase 56 U/L (30-135) 06/28/16 20:57 CK-MB (Mass) 0.66 ng/mL (0.0-3.38) 06/28/16 20:57 Troponin I < 0.0120 ng/mL (0.00-0.120) 06/29/16 07:09 Troponin I, Quant < 0.0120 ng/mL (0.00-0.120) 06/28/16 20:57 NT-Pro-B Natriuret Pep 1940 pg/mL (0-900) H 06/28/16 10:48 Total Protein 6.4 g/dL (6.3-8.3) 07/03/16 06:14 Albumin 3.8 g/dL (3.5-5.0) 07/03/16 06:14 Globulin 2.6 gm/dL (2.2-3.9) 07/03/16 06:14 Albumin/Globulin Ratio 1.5 (1.0-2.1) 07/03/16 06:14 Triglycerides 114 mg/dL (0-149) 06/29/16 07:09 Cholesterol 115 mg/dL (0-199) 06/29/16 07:09 LDL Cholesterol Direct 59 mg/dL (0-129) 06/29/16 07:09 HDL Cholesterol 32 mg/dL (30-70) 06/29/16 07:09 Free T4 0.88 ng/dL (0.78-2.19) 06/29/16 07:09 TSH 3rd Generation 27.90 mIU/L (0.46-4.68) H 07/03/16 06:14 Urine Color Yellow (YELLOW) 06/29/16 17:18 Urine Clarity Clear (Clear) 06/29/16 17:18 Urine pH 5.0 (5.0-8.0) 06/29/16 17:18 Ur Specific [place] 1.017 (1.003-1.030) 06/29/16 17:18 Urine Protein 2+ mg/dL (NEGATIVE) H 06/29/16 17:18 Urine Glucose (UA) Normal mg/dL (Normal) 06/29/16 17:18 Urine Ketones Negative mg/dL (NEGATIVE) 06/29/16 17:18 Urine Blood 2+ (NEGATIVE) H 06/29/16 17:18 Urine Nitrate Negative (NEGATIVE) 06/29/16 17:18 Urine Bilirubin Negative (NEGATIVE) 06/29/16 17:18 Urine Urobilinogen Normal mg/dL (0.2-1.0) 06/29/16 17:18 Ur Leukocyte Esterase Neg Roman/uL (Negative) 06/29/16 17:18 Urine WBC (Auto) 5 /hpf (0-5) 06/29/16 17:18 Urine RBC (Auto) 13 /hpf (0-3) H 06/29/16 17:18 Ur Squamous Epith Cells < 1 /hpf (0-5) 06/29/16 17:18 Stool Occult Blood Positive (NEGATIVE) H 06/29/16 17:20 Blood Type B POSITIVE 07/01/16 12:53 Blood Type Confirm B POSITIVE 06/28/16 11:47 Antibody Screen Negative 07/01/16 12:53 - Hospital Course Hospital Course: On admission: 81 year old [place] speaking female with PMH DM, HTN, a.fib (not on anticoagulation), CHF came to the ED for weakness. Patient was found to have a Hgb of 5.9 in ED. She reports that she was recently at [facility] last month for weakness, SOB and anemia. She states that she was supposed to get a colonoscopy today, but was not feeling well and came to the ED so the colonoscopy was cancelled. The patient says she has pain on LUQ that radiates to her back for the past 2 weeks. It is worse with coughing, which is described as a dry cough. She states this pain is right around her left breast. She describes it as a pressure like 10/10 pain that is worse with movement. She tried to take Alieve but this did not alleviate the pain. She denies radiation to the jaw or down the arm. Denies diaphoresis or N/V associated with the pain. She states that she is more SOb than normal for the past week and admits to leg swelling more than normal for her. She reports that her stool was dark/black and she has not seen any blood in her stool recently but saw blood once a month ago. She reports her last colonoscopy was 5 years ago but per GI there are no records of this. She has never had an endoscopy. She denies CP, SOB, n/v/d, vision changes , numbness/tingling. She reports she is not on anticoagulation for her a.fib due to her anemia. She only takes ASA at home. During hospital stay: Patient was noted to be anemic secondary to possible GI bleed. Hbg - 5.9 on admission. She was given 2 units PRBC and hgb now stable in the 9. Dr Reyes, GI consulted, help appreciated - rec capsult study, no source of bleeding on egc or colonoscopy. EGD 06/29/16 - medium sized hiatal hernia, gastritis biopsied pathology: negative for H. pylori. Colonoscopy 06/30/16 - moderate diverticulosis in the sigmoid and in the descending colon, non bleeding internal hemorrhoids Patient was given Protonix 40mg by IVP twice a day. Iron studies normal. Positive stool occult blood CHF exacerbation: acute on chronic diastolic heart failure. BNP elevated - 1940 Troponin negative x 3 EKG - NSR, x 3. no acute changes. Patient with a hx of A fib on past admission at [facility] not on anticoagulation. ASA 81mg PO daily - held due to possible GI bleed. Chest X ray - possible atelectasis, rales on examination (slight). She was given Amiodarone 200mg PO daily and Diltiazem 240mg PO daily Cardiology consulted, Dr. Zelaya.Echo (06/29/16): left ventricle is normal size, borderline concentric left ventricular hypertrophy, left ventricular function is normal, left ventricular ejection is within normal range. mitral valve leaflefts are thicken and calcified. Mild regurgitation. Moderate to severe pulmonary hypertension, sclerotic aortic valve Patient had chest pain on admission. Echo showed Pulmonary hypertension: CT Chest w/o contrast- No evidence of interstitial fibrosis. Mild central pulmonary vascular congestion with mosaic appearance of the lung aprenchyma with ground-glass opacities; suspect concomitant sequla of air trapping or pneumonitis. (Please see full report). 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 Pain Non cardiac in nature - like costochondritis. Ruled out PA/dissection Trops negative x 3. Aorta US- no evidence of AAA. Abd obstructive series - moderate constipation, no obstruction , no free air Echo (06/29/16): left ventricle is normal size, borderline concentric left ventricular hypertrophy, left ventricular function is normal, left ventricular ejection is within normal range. mitral valve leaflefts are thicken and calcified. Mild regurgitation. Moderate to severe pulmonary hypertension, sclerotic aortic valve Pulmonology consulted for SOB which improved during stay. Started on Ipratropium 0.5mg IH RQ6 PRN and Budesonide 0.5mg INH Q12h CT Chest w/o contrast- No evidence of interstitial fibrosis. Mild central pulmonary vascular congestion with mosaic appearance of the lung aprenchyma with ground-glass opacities; suspect concomitant sequla of air trapping or pneumonitis. (Please see full report). Concering for amidoarone induced firbosis but per pulm is not present. Patient is to follow up with Dr. Kessler. Patient was put on Insliun while in the hospital for her diabetes. She is to resume her home glipizide. HbA1c - 6 Please discharge patient home. Patient is to continue taking medications as directed. Patient is to followup with her PMD in 1 week. Patient is to followup with Dr. Kessler (pulm) for possible sleep apnea. vs CPOD. Patient is to followup with GI within 3 weeks for further evaluation and possible repeat colonoscopy and or/ capsule study. Patient will need to followup with Cardiology within 1 week for followup about anticoagulation/antiplatelet therapy and followup regarding amiodarone. If symptoms worsen, please return to the ED for further evaluation and treatment. All instructions explained to the patient and she agrees. Discharge Exam - Head Exam Head Exam: ATRAUMATIC, NORMOCEPHALIC - Eye Exam Eye Exam: EOMI, Normal appearance, PERRL Pupil Exam: NORMAL ACCOMODATION - Respiratory Exam Respiratory Exam: Clear to PA & Lateral, NORMAL BREATHING PATTERN. absent: Accessory Muscle Use, Respiratory Distress - Cardiovascular Exam Cardiovascular Exam: REGULAR RHYTHM, +S1, +S2 - GI/Abdominal Exam GI & Abdominal Exam: Normal Bowel Sounds, Soft. absent: Distended, Firm, Guarding, Tenderness Additional comments: obese - Extremities Exam Extremities exam: normal inspection - Back Exam Back exam: NORMAL INSPECTION. absent: CVA tenderness (L), CVA tenderness (R), paraspinal tenderness - Neurological Exam Neurological exam: Alert, CN II-XII Intact, Oriented x3 - Psychiatric Exam Psychiatric exam: Normal Affect, Normal Mood - Skin Skin Exam: Dry, Intact, Normal Color, Warm Discharge Plan - Discharge Medications Prescriptions: Amiodarone [Cordarone] 200 mg PO DAILY #30 tab Diltiazem HCl [Diltiazem ER] 240 mg PO DAILY #30 capsule.er Glipizide [Glipizide Xl] 10 mg PO DAILY #30 tab.er.[id number] Pantoprazole [Protonix EC Tab] 40 mg PO DAILY #30 ect Budesonide [Pulmicort Flexhaler] 90 mcg IH Q12H #1 aer.pow.[id number] Tiotropium [Spiriva] 18 mcg IH DAILY #30 cap Tiotropium [place] Inhaler [Spiriva Inhalation Handihaler Device] 1 puff INH DAILY #1 inhaler - Follow Up Plan Condition: STABLE Disposition: HOME/ ROUTINE Instructions: Diltiazem (By mouth), Glipizide (By mouth), Amiodarone (By mouth) , Budesonide (By breathing), Pantoprazole (By mouth), Tiotropium (By breathing) , Heart Failure (DC), Chest Pain (DC), Colonoscopy (DC), Heart Healthy Diet (DC) , Diabetic Foot Care (DC), Meal Planning with the Plate Method (DC), Meal Planning with Diabetes Exchanges (DC), Upper Endoscopy (DC), Hypertension (DC) Additional Instructions: Please discharge patient home. Patient is to continue taking medications as directed. Patient is to followup with her PMD in 1 week. Patient is to followup with Dr. Kessler ([facility]) for possible sleep apnea. vs CPOD. Patient is to followup with GI within 3 weeks for further evaluation and possible repeat colonoscopy and or/ capsule study. Patient will need to followup with Cardiology within 1 week for followup about anticoagulation/antiplatelet therapy and followup regarding amiodarone. If symptoms worsen, please return to the ED for further evaluation and treatment. All instructions explained to the patient and she agrees. Referrals: Pepe Kessler MD [Staff Provider] - Scooter Zelaya MD [Staff Provider] - Merrill Reyes MD [Staff Provider] - <José Antonio Muñoz - Last Filed: 07/03/16 17:16> Provider - Provider Date of Admission: 06/28/16 12:09 Attending physician: Ramy Sheets MD Hospital Course - Lab Results Lab Results: Micro Results 06/30/16 17:00 Blood Blood Culture - Preliminary NO GROWTH AFTER 48 HOURS 06/30/16 16:30 Blood Blood Culture - Preliminary NO GROWTH AFTER 48 HOURS Most Recent Lab Values WBC 12.7 K/uL (4.8-10.8) H 07/03/16 06:14 RBC 3.31 Mil/uL (3.80-5.20) L 07/03/16 06:14 Hgb 9.3 g/dL (11.0-16.0) L 07/03/16 06:14 Hct 28.2 % (34.0-47.0) L 07/03/16 06:14 MCV 85.0 fL (81.0-99.0) 07/03/16 06:14 MCH 28.0 pg (27.0-31.0) 07/03/16 06:14 MCHC 33.0 g/dL (33.0-37.0) 07/03/16 06:14 RDW 16.6 % (11.5-14.5) H 07/03/16 06:14 Plt Count 246 K/uL (130-400) 07/03/16 06:14 MPV 8.1 fL (7.2-11.7) 07/03/16 06:14 Neut % (Auto) 72.6 % (50.0-75.0) 07/03/16 06:14 Lymph % (Auto) 18.9 % (20.0-40.0) L 07/03/16 06:14 Nelson % (Auto) 4.9 % (0.0-10.0) 07/03/16 06:14 Eos % (Auto) 3.0 % (0.0-4.0) 07/03/16 06:14 Baso % (Auto) 0.6 % (0.0-2.0) 07/03/16 06:14 Neut # 9.2 K/uL (1.8-7.0) H 07/03/16 06:14 Lymph # 2.4 K/uL (1.0-4.3) 07/03/16 06:14 Nelson # 0.6 K/uL (0.0-0.8) 07/03/16 06:14 Eos # 0.4 K/uL (0.0-0.7) 07/03/16 06:14 Baso # 0.1 K/uL (0.0-0.2) 07/03/16 06:14 ESR 43 mm/hr (0-20) H 06/30/16 16:57 PT 13.4 SECONDS (9.7-12.2) H 06/30/16 06:02 INR 1.2 06/30/16 06:02 APTT 33 SECONDS (21-34) 06/30/16 06:02 Sodium 137 mmol/L (132-148) 07/03/16 06:14 Potassium 5.1 mmol/L (3.6-5.2) 07/03/16 06:14 Chloride 98 mmol/L (98-107) 07/03/16 06:14 Carbon Dioxide 27 mmol/L (22-30) 07/03/16 06:14 Anion Gap 17 (10-20) 07/03/16 06:14 BUN 23 mg/dL (7-17) H 07/03/16 06:14 Creatinine 1.3 MG/DL (0.7-1.2) H 07/03/16 06:14 Est GFR ( Amer) 48 07/03/16 06:14 Est GFR (Non-Af Amer) 40 07/03/16 06:14 POC Glucose (mg/dL) 129 mg/dL (65-110) H 07/03/16 11:42 Random Glucose 132 mg/dL (65-105) H 07/03/16 06:14 Hemoglobin A1c 6.0 % (4.2-6.5) 06/29/16 07:09 Calcium 8.6 mg/dl (8.6-10.4) 07/03/16 06:14 Phosphorus 5.0 mg/dL (2.5-4.5) H 07/01/16 06:30 Magnesium 2.1 mg/dL (1.6-2.3) 07/01/16 06:30 Iron 116 ug/dL (37-170) 06/28/16 19:38 TIBC 401 ug/dL (250-450) 06/28/16 19:38 % Saturation 29 (20-55) 06/28/16 19:38 Ferritin 11.7 ng/mL 06/28/16 19:38 Total Bilirubin 0.5 mg/dL (0.2-1.3) 07/03/16 06:14 AST 19 U/L (14-36) 07/03/16 06:14 ALT 19 U/L (9-52) 07/03/16 06:14 Alkaline Phosphatase 40 U/L (38-126) 07/03/16 06:14 Total Creatine Kinase 56 U/L (30-135) 06/28/16 20:57 CK-MB (Mass) 0.66 ng/mL (0.0-3.38) 06/28/16 20:57 Troponin I < 0.0120 ng/mL (0.00-0.120) 06/29/16 07:09 Troponin I, Quant < 0.0120 ng/mL (0.00-0.120) 06/28/16 20:57 NT-Pro-B Natriuret Pep 1940 pg/mL (0-900) H 06/28/16 10:48 Total Protein 6.4 g/dL (6.3-8.3) 07/03/16 06:14 Albumin 3.8 g/dL (3.5-5.0) 07/03/16 06:14 Globulin 2.6 gm/dL (2.2-3.9) 07/03/16 06:14 Albumin/Globulin Ratio 1.5 (1.0-2.1) 07/03/16 06:14 Triglycerides 114 mg/dL (0-149) 06/29/16 07:09 Cholesterol 115 mg/dL (0-199) 06/29/16 07:09 LDL Cholesterol Direct 59 mg/dL (0-129) 06/29/16 07:09 HDL Cholesterol 32 mg/dL (30-70) 06/29/16 07:09 Free T4 0.88 ng/dL (0.78-2.19) 06/29/16 07:09 TSH 3rd Generation 27.90 mIU/L (0.46-4.68) H 07/03/16 06:14 Urine Color Yellow (YELLOW) 06/29/16 17:18 Urine Clarity Clear (Clear) 06/29/16 17:18 Urine pH 5.0 (5.0-8.0) 06/29/16 17:18 Ur Specific [place] 1.017 (1.003-1.030) 06/29/16 17:18 Urine Protein 2+ mg/dL (NEGATIVE) H 06/29/16 17:18 Urine Glucose (UA) Normal mg/dL (Normal) 06/29/16 17:18 Urine Ketones Negative mg/dL (NEGATIVE) 06/29/16 17:18 Urine Blood 2+ (NEGATIVE) H 06/29/16 17:18 Urine Nitrate Negative (NEGATIVE) 06/29/16 17:18 Urine Bilirubin Negative (NEGATIVE) 06/29/16 17:18 Urine Urobilinogen Normal mg/dL (0.2-1.0) 06/29/16 17:18 Ur Leukocyte Esterase Neg Roman/uL (Negative) 06/29/16 17:18 Urine WBC (Auto) 5 /hpf (0-5) 06/29/16 17:18 Urine RBC (Auto) 13 /hpf (0-3) H 06/29/16 17:18 Ur Squamous Epith Cells < 1 /hpf (0-5) 06/29/16 17:18 Stool Occult Blood Positive (NEGATIVE) H 06/29/16 17:20 Blood Type B POSITIVE 07/01/16 12:53 Blood Type Confirm B POSITIVE 06/28/16 11:47 Antibody Screen Negative 07/01/16 12:53 Attending/Attestation - Attestation I have personally seen and examined this patient.: Yes I have fully participated in the care of the patient.: Yes I have reviewed all pertinent clinical information, including history, physical exam and plan: Yes Notes (Text): 07/03/16 17:13 Medical Attending: Patient was seen and examined by me. Agree with the above note by the resident. The patient's Hgb was unchagned from before. She has already underwent EGD as well as colonscopy by GI. Per advice of GI she needs to follow up outpatient for a potential video capsule study. There was some concern that she may be having pulmonary fibrosis from taking amiodraone however the patient was evaluated by pulmonology and this was not the case. She was made aware that she will need to follow up with both GI as well as pulmonology thank you José Antonio Muñoz
--- NOTE | 2016-07-03 12:10 | CP.PCM.PN ---
Subjective - Date & Time of Evaluation Date of Evaluation: 07/03/16 Time of Evaluation: 10:25 - Subjective Subjective: Pt seen and examined at bedside. Pt sitting up in bed, appears comfortable. Pt states that she is feeling better. Pt denies shortness of breath, chest pain , and productive cough. Pt does admit to "some" dry cough. Objective - Vital Signs/Intake and Output Vital Signs (last 24 hours): Temp Pulse Resp BP Pulse Ox 98.7 F 78 18 147/68 94 L 07/03/16 07:25 07/03/16 08:00 07/03/16 07:25 07/03/16 07:25 07/03/16 07:25 Intake and Output: 07/03/16 07/03/16 06:59 18:59 Intake Total 540 Output Total 0 Balance 540 - Medications Medications: Current Medications Amiodarone HCl (Cordarone) 200 mg PO DAILY [facility] Last Admin: 07/03/16 09:00 Dose: 200 mg Budesonide (Pulmicort Respules) 0.5 mg INH RQ12 MARIBETH Last Admin: 07/03/16 07:50 Dose: 0.5 mg Diltiazem HCl (Cardizem Cd) 240 mg PO DAILY MARIBETH Last Admin: 07/03/16 09:00 Dose: 240 mg Insulin Human Regular (Novolin R) 0 unit SC ACHS MARIBETH PRN Reason: Protocol Last Admin: 07/03/16 11:43 Dose: Not Given Ipratropium [place] (Atrovent) 0.5 mg IH RQ6 PRN PRN Reason: Shortness of Breath Last Admin: 07/03/16 07:50 Dose: 0.5 mg Lidocaine (Lidoderm) 1 ea TD DAILY MARIBETH Last Admin: 07/03/16 08:59 Dose: 1 ea Pantoprazole Sodium (Protonix Ec Tab) 40 mg PO DAILY MARIBETH Last Admin: 07/03/16 09:00 Dose: 40 mg Tramadol HCl (Ultram) 25 mg PO TID MARIBETH Last Admin: 07/03/16 09:03 Dose: 25 mg - Labs Labs: 07/03/16 06:14 07/03/16 06:14 PT 13.4 SECONDS (9.7-12.2) H 06/30/16 06:02 INR 1.2 06/30/16 06:02 APTT 33 SECONDS (21-34) 06/30/16 06:02 - Constitutional Appears: Non-toxic, No Acute Distress - Head Exam Head Exam: NORMAL INSPECTION - Eye Exam Eye Exam: Normal appearance Pupil Exam: NORMAL ACCOMODATION - ENT Exam ENT Exam: Mucous Membranes Moist - Respiratory Exam Respiratory Exam: Clear to Ausculation Bilateral, NORMAL BREATHING PATTERN - Cardiovascular Exam Cardiovascular Exam: REGULAR RHYTHM - Extremities Exam Extremities Exam: absent: Pedal Edema - Neurological Exam Neurological Exam: Alert, Awake, Oriented x3 - Psychiatric Exam Psychiatric exam: Normal Affect, Normal Mood - Skin Skin Exam: Dry, Intact, Normal Color, Warm Assessment and Plan (1) Pulmonary hypertension Assessment & Plan: CT Chest on 07/01/16 showed no interstitial fibrosis. Mild central pulmonary vascular congestion with mosaic appearance of lung parenchyma with ground glass opacities. Suspect concomitant sequale air trapping or pneumonitis. (see full report for details) Bilateral pleural effusions and ground glass haziness likely 2/2 to CHF or pulmonary HTN Consider low dose steroids Consider GREG, RF, and ESR labs Continue Amiodrone as Chest CT negative for pulmonary fibrosis Consider PFT and sleep study for HTN as out patient Continue treatment for HTN Follow up in office post discharge. Status: Acute (2) Atrial fibrillation with controlled ventricular response Status: Acute (3) Dyspnea Status: Acute
--- NOTE | 2016-07-03 17:46 | PCM.HF ---
Heart Failure Core Measure - Heart Failure Ejection Fraction: 40 % or Greater (LVEF 83%) [id number] Inhibitor Prescribed: No Contraindication/Reason for not providing: LVEF >40% Beta-Aftab Prescribed: None Contraindication/Reason for not providing: COPD Angiotensin II Receptor Aftab Prescribed: No Contraindication/Reason for not providing: LVEF >40% AnticoagulationTherapy for Atrial Fibrillation/Atrialflutter: No Contraindication/Reason for not providing: GI BLEED Aldosterone Antagonist Prescribed: No Contraindication/Reason for not providing: RENAL DYSFUNCTION Hydralazine Nitrate Prescribed: No Contraindication/Reason for not providing: RENAL DYSFUNCTION Implantable Cardioverter Defibrillator Therapy: No Contraindication/Reason for not providing: LVEF >40% Cardiac Resynchronization Therapy Prescribed: No Contraindication/Reason for not providing: LVEF >40% - Follow up Will be discharged to: Home Follow Up Date (must be within 7 days from discharge): 07/06/16 Follow Up Time: 09:00
== END 2016-07-03 12:56 | disposition home or self-care (01) | DRG 811 ==
LOC: C.ER 10:11 → C.9E 12:09 → C.6T 12:20
PROVIDERS: ADMIT Internal Medicine; ATTEND Internal Medicine
PROC: 30233N1 Transfusion of Nonautologous Red Blood Cells into Peripheral Vein, Percutaneous Approach (ICD-10-PCS; principal; 2016-06-28)
PROC: 0DB68ZX Excision of Stomach, Via Natural or Artificial Opening Endoscopic, Diagnostic (ICD-10-PCS; 2016-06-29)
PROC: 0DJD8ZZ Inspection of Lower Intestinal Tract, Via Natural or Artificial Opening Endoscopic (ICD-10-PCS; 2016-06-30)
DX: D50.0 Iron deficiency anemia secondary to blood loss (chronic) (principal); I50.33 Acute on chronic diastolic (congestive) heart failure; N17.9 Acute kidney failure, unspecified; I27.2 Other secondary pulmonary hypertension; K92.1 Melena; K29.50 Unspecified chronic gastritis without bleeding; K57.30 Diverticulosis of large intestine without perforation or abscess without bleeding; K44.9 Diaphragmatic hernia without obstruction or gangrene; K59.00 Constipation, unspecified; K64.8 Other hemorrhoids; I11.0 Hypertensive heart disease with heart failure; R07.89 Other chest pain; I48.91 Unspecified atrial fibrillation; E11.9 Type 2 diabetes mellitus without complications; R06.00 Dyspnea, unspecified; E78.5 Hyperlipidemia, unspecified; M19.90 Unspecified osteoarthritis, unspecified site; G25.81 Restless legs syndrome; H26.9 Unspecified cataract; Z86.19 Personal history of other infectious and parasitic diseases; Z79.84 Long term (current) use of oral hypoglycemic drugs; Z87.891 Personal history of nicotine dependence

== ENCOUNTER 2016-09-25 05:49 | Inpatient (IN) | payer MEDICARE ==
[2016-09-25] MEDS ORDERED: Sodium Chloride 0.9% 1,000 ML IV ONE (06:25)
--- NOTE | 2016-09-25 06:29 | C.PDOC ---
History Of Present Illness A 81 y/o female c/o general weakness for past week. Pt notes associated black stool and falling due to weakness. Pt denies pain, fever, chills, nausea, vomiting, LOC, light headedness. Pt reports being anemic in the past and had a blood transfusion done 2 months prior. Time Seen by Provider: 09/25/16 06:29 Chief Complaint (Nursing): Weakness/Neurological Deficit History Per: Patient History/Exam Limitations: no limitations Onset/Duration Of Symptoms: Days Current Symptoms Are (Timing): Still Present Fall Associated With With Symptoms: Yes Severity: Mild Recent travel outside of the [place]: No Additional History Per: Patient Past Medical History Reviewed: Historical Data, Nursing Documentation, Vital Signs Vital Signs: Last Vital Signs Temp 98.6 F 09/25/16 06:03 Pulse 75 09/25/16 06:03 Resp 16 09/25/16 06:03 BP 108/33 L 09/25/16 06:03 Pulse Ox 89 L 09/25/16 06:46 - Medical History PMH: Anemia, Arthritis, Cardia Arrhythmia, CHF, HTN, Hyperlipidemia Denies: Chronic Kidney Disease - [facility] Procedures EXCISION OF STOMACH, ENDO, DIAGN (06/28/16) INSPECTION OF LOWER INTESTINAL TRACT, ENDO (06/28/16) TRANSFUSE NONAUT RED BLOOD CELLS IN PERIPH VEIN, PERC (06/28/16) Family History: States: Unknown Family Hx - Social History Hx Alcohol Use: No Hx Substance Use: No - Immunization History Hx Tetanus Toxoid Vaccination: No Hx Influenza Vaccination: Yes Hx Pneumococcal Vaccination: Yes Review Of Systems Except As Marked, All Systems Reviewed And Found Negative. Constitutional: Positive for: Weakness. Negative for: Fever, Chills, Other ( Pain) Cardiovascular: Negative for: Light Headedness Gastrointestinal: Positive for: Melena. Negative for: Nausea, Vomiting Neurological: Negative for: Other (LOC) Physical Exam - Physical Exam Appears: Non-toxic, No Acute Distress Skin: Warm, Dry Head: Atraumatic, Normacephalic Eye(s): bilateral: Conjunctiva Pale Oral Mucosa: Moist Throat: Normal, No Exudate Neck: Supple Chest: Symmetrical Cardiovascular: Rhythm Regular, No Murmur Respiratory: Normal Breath Sounds, No Accessory Muscle Use, No Rales, No Rhonchi , No Wheezing Gastrointestinal/Abdominal: Soft, No Tenderness, No Guarding, No Rebound Rectal: Melena (presence of blackish, mini colored stool.) Extremity: No Pedal Edema, Capillary Refill (<2secs), No Swelling Neurological/Psych: Oriented x3, Normal Speech, Normal Cognition, Other (No focal deficit) ED Course And Treatment O2 Sat by Pulse Oximetry: 89 (RA) Pulse Ox Interpretation: Normal Medical Decision Making Medical Decision Making: Impression: 81 y/o female c/o general weakness and black stool for a week. Plans: -Blood bank -EKG -Blood labs -CXR -IV fluids -Reassess Disposition - Disposition Disposition Time: 07:00 Condition: STABLE - Clinical Impression Clinical Impression: Anemia - Scribe Statement The provider has reviewed the documentation as recorded by the Scribe Nataly delvalle All medical record entries made by the Scribe were at my direction and personally dictated by me. I have reviewed the chart and agree that the record accurately reflects my personal performance of the history, physical exam, medical decision making, and the department course for this patient. I have also personally directed, reviewed, and agree with the discharge instructions and disposition. Physician Patient Turnover Patient Signed Over To: Nam Matamoros DO Handoff Comments: Pending blood work and lab result.
[2016-09-25] MEDS ORDERED: Sodium Chloride 0.9% 1,000 ML ONE (06:35)
[2016-09-25 06:39] LABS: BASO % 0.3 % (0.0-2.0); EOS % 0.3 % (0.0-4.0); HEMATOCRIT 11.5 % (34.0-47.0); LYMPH # 4.1 K/uL (1.0-4.3); LYMPH % 26.8 % (20.0-40.0); MEAN CORPUSCULAR HEMOGLOBIN 29.7 pg (27.0-31.0); MEAN CORPUSCULAR HGB CONC 31.3 g/dL (33.0-37.0); MEAN PLATELET VOLUME 8.6 fL (7.2-11.7); MONO # 0.6 K/uL (0.0-0.8); MONO % 4.1 % (0.0-10.0); NRBC % 0.4 % (0.0-2.0); RED CELL DISTRIBUTION WIDTH 25.2 % (11.5-14.5); WHITE BLOOD COUNT 15.2 K/uL (4.8-10.8)
[2016-09-25 06:48] LABS: INR 1.1
[2016-09-25 06:49] LABS: POTASSIUM 4.1 mmol/L (3.6-5.2)
[2016-09-25 06:51] LABS: ALB/GLOB RATIO 1.8 (1.0-2.1); BILIRUBIN,TOTAL 0.5 mg/dL (0.2-1.3)
[2016-09-25 06:52] LABS: CALCIUM 8.9 mg/dl (8.6-10.4)
[2016-09-25 07:03] LABS: TROPONIN I 0.023 ng/mL (0.00-0.120)
--- NOTE | 2016-09-25 07:56 | CP.PCM.HP ---
<Kehinde Stevens - Last Filed: 09/25/16 16:59> History of Present Illness - History of Present Illness History of Present Illness: CC: weakness HPI: 81 year old female with PMHx significant for CHF, Anemia, DM, HTN, Atrial fibrillation, hepatitis C, GERD and asthma presents with complaints of weakness for one week duration. Patient was accompanied by brother bedside who stated that the patient lives with him. He stated that the patient actually fell in the bathroom prompting him to bring her in. It was noted that patient did not hit her head during the fall . Patient complains of a two week history of dark-black colored stools. She denies seeing miguel blood with bowel movements though. Patient was admitted a few months ago most recently for symptomatic anemia for which she was treated in patient at [facility]. Patient had a full workup at the time inclusive of EGD and colonoscopy which did not reveal a source of GI bleed. She admits to paresthesias in her fingertips bilaterally. Patient denies chest pain or palpitations, subjective fevers or chills, nausea, vomiting, diarrhea at this time. PMH: CHF, Anemia, DM, HTN, atrial fibrillation (not on anticoagulation), Hepatitis C (treated), GERD, cataract, restless leg syndrome PSH: breast lipoma removal Home meds: Amiodarone 200 mg PO daily, ASA 81 mg PO daily, Glipizide 10mg PO daily, Cardizem 240mg PO daily, Lasix 40 mg daily, Omeprazole 20 mg daily, Budesonide inhaler 90 mcg All: NKDA SH: Formerly smoked 3-4 cigarettes for approx 5 years; Quit smoking 40yrs ago, denies ETOH and drug use FH: Non contributory at this time. Present on Admission - Present on Admission Any Indicators Present on Admission: No Review of Systems - Review of Systems Systems not reviewed;Unavailable: Language Barrier - Constitutional Constitutional: Malaise, Weakness. absent: Headache - EENT Eyes: absent: Blurred Vision, Change in Vision - Cardiovascular Cardiovascular: absent: Chest Pain, Chest Pain at Rest - Respiratory Respiratory: Chest Congestion - Gastrointestinal Gastrointestinal: absent: Abdominal Pain - Musculoskeletal Musculoskeletal: Arthralgias - Psychiatric Psychiatric: absent: Anxiety - Endocrine Endocrine: absent: Change in Body Appearance, Change in Libido Past Patient History - Past Medical History & Family History Past Medical History?: Yes - Past Social History Smoking Status: Former Smoker - CARDIAC Hx Cardia Arrhythmia: Yes Hx Congestive Heart Failure: Yes Hx Hypertension: Yes - PULMONARY Hx Respiratory Disorders: No - NEUROLOGICAL Hx Neurological Disorder: No - HEENT Hx HEENT Problems: Yes Hx Cataracts: Yes (bilateral, no surgery) - RENAL Hx Chronic Kidney Disease: No - ENDOCRINE/METABOLIC Hx Endocrine Disorders: Yes Hx Diabetes Mellitus Type 2: Yes - HEMATOLOGICAL/ONCOLOGICAL Hx Anemia: Yes - INTEGUMENTARY Hx Dermatological Problems: No - MUSCULOSKELETAL/RHEUMATOLOGICAL Hx Arthritis: Yes - GASTROINTESTINAL Hx Gastrointestinal Disorders: Yes Hx Colostomy: Yes Hx Hemorrhoids: Yes Other/Comment: Dark Stool a Month ago - GENITOURINARY/GYNECOLOGICAL Hx Genitourinary Disorders: No - PSYCHIATRIC Hx Substance Use: No - SURGICAL HISTORY Hx Surgeries: No - ANESTHESIA Hx Anesthesia: No Hx Anesthesia Reactions: No Hx Malignant Hyperthermia: No Meds Allergies/Adverse Reactions: Allergies Allergy/AdvReac Type Severity Reaction Status Date / Time No Known Allergies Allergy Verified 09/25/16 06:14 Physical Exam - Constitutional Appears: Non-toxic - Head Exam Head Exam: ATRAUMATIC, NORMAL INSPECTION, NORMOCEPHALIC - Eye Exam Eye Exam: EOMI, Normal appearance, PERRL Additional comments: conjunctival pallor b/l - ENT Exam ENT Exam: Mucous Membranes Moist - Neck Exam Neck exam: Positive for: Full Rom - Respiratory Exam Respiratory Exam: NORMAL BREATHING PATTERN. absent: Wheezes - Cardiovascular Exam Cardiovascular Exam: REGULAR RHYTHM, +S1, +S2 - GI/Abdominal Exam GI & Abdominal Exam: Normal Bowel Sounds, Soft - Extremities Exam Extremities exam: Positive for: full ROM, normal capillary refill, pedal edema ( trace), pedal pulses present - Back Exam Back exam: NORMAL INSPECTION - Neurological Exam Neurological exam: Alert, CN II-XII Intact, Oriented x3 - Expanded Neurological Exam Expanded Patient oriented to: person, place, time Speech: Fluid Speech Cranial nerves: EOM's Intact: Normal Sensory exam: Lower Extremity Light Touch: Normal, Lower Extremity Temperature: Normal, Upper Extremity Light Touch: Normal, Upper Extremity Temperature: Normal - Psychiatric Exam Psychiatric exam: Normal Affect, Normal Mood - Skin Skin Exam: Dry, Pallor, Warm Results - Vital Signs Recent Vital Signs: Last Vital Signs Temp 98.3 F 09/25/16 07:39 Pulse 73 09/25/16 07:39 Resp 20 09/25/16 07:39 BP 102/35 L 09/25/16 07:39 Pulse Ox 94 L 09/25/16 07:39 - Labs Result Diagrams: 09/25/16 06:35 09/25/16 06:35 Labs: Laboratory Results - last 24 hr 09/25/16 09/25/16 09/25/16 06:24 06:35 06:35 WBC 15.2 H RBC 1.21 L Hgb 3.6 L* D Hct 11.5 L MCV 95.0 D MCH 29.7 MCHC 31.3 L RDW 25.2 H Plt Count 224 MPV 8.6 Neut % (Auto) 68.5 Lymph % (Auto) 26.8 Weber % (Auto) 4.1 Eos % (Auto) 0.3 Baso % (Auto) 0.3 Neut # 10.4 H Lymph # 4.1 Weber # 0.6 Eos # 0.0 Baso # 0.0 PT 12.2 INR 1.1 APTT 29 Sodium Potassium Chloride Carbon Dioxide Anion Gap BUN Creatinine Est GFR ( Amer) Est GFR (Non-Af Amer) Random Glucose Calcium Total Bilirubin AST ALT Alkaline Phosphatase Troponin I NT-Pro-B Natriuret Pep Total Protein Albumin Globulin Albumin/Globulin Ratio Stool Occult Blood Blood Type B POSITIVE Antibody Screen Negative 09/25/16 09/25/16 06:35 06:57 WBC RBC Hgb Hct MCV MCH MCHC RDW Plt Count MPV Neut % (Auto) Lymph % (Auto) Weber % (Auto) Eos % (Auto) Baso % (Auto) Neut # Lymph # Weber # Eos # Baso # PT INR APTT Sodium 137 Potassium 4.1 Chloride 100 Carbon Dioxide 24 Anion Gap 17 BUN 53 H Creatinine 1.9 H Est GFR ( Amer) 31 Est GFR (Non-Af Amer) 26 Random Glucose 173 H Calcium 8.9 Total Bilirubin 0.5 AST 27 ALT 19 Alkaline Phosphatase 41 Troponin I 0.0230 NT-Pro-B Natriuret Pep 1690 H Total Protein 6.0 L Albumin 3.9 Globulin 2.2 Albumin/Globulin Ratio 1.8 Stool Occult Blood Positive H Blood Type Antibody Screen Assessment & Plan (1) Symptomatic anemia Assessment and Plan: Will transfuse 3 units PRBC. F/U CBC at 8pm post transfusion as well as in the AM. Monitor for signs of fluid overload. STAT Chest Xray post transfusion of first unit: mild interstitial prominence. F/U in the AM Monitor for signs of adverse reaction to transfusion Patient with hx of 2 weeks of dark stools: Stool occult positive: Rule out GI bleed F/U GI (Dr. Reyes) recommendations Anemia can be further exacerbated by decreased kidney function. Cr 1.9, BUN 53 F/U Nephrology recommendations Status: Acute (2) Acute kidney injury Assessment and Plan: BUN and Cr elevated as noted above F/U Urine collection and imaging studies F/U Nephro ( Dr. Bill recommendations) Status: Acute (3) History of atrial fibrillation Assessment and Plan: On Amiodarone and Cardizem On telemetry monitoring: Rate and rhythm controlled F/U Cardiology ( Dr. Zelaya) recommendations Status: Acute (4) Diabetes Assessment and Plan: Accuchecks Medium dose ISS Hold Glipizide at this time. Patient NPO in AM fo repeat EGS Status: Acute (5) HTN (hypertension) Assessment and Plan: Normotensive at this time. Cont to monitor. Status: Acute (6) History of gastroesophageal reflux (GERD) Assessment and Plan: Protonix 20 mg PO daily Status: Acute (7) Prophylactic measure Assessment and Plan: Chemical anticoagulation contraindicated due to suspected GI bleed as well as low Hgb SCDs contraindicated due to b/l LE swelling PPI 20 mg daily Fall risk protocol Status: Acute <José Antonio Muñoz H - Last Filed: 09/26/16 13:20> Results - Vital Signs Recent Vital Signs: Last Vital Signs Temp 98.3 F 09/26/16 09:26 Pulse 73 09/26/16 10:55 Resp 14 09/26/16 09:26 BP 126/71 09/26/16 09:26 Pulse Ox 98 09/26/16 09:26 - Labs Result Diagrams: 09/26/16 03:19 09/26/16 03:19 Labs: Laboratory Results - last 24 hr 09/25/16 09/25/16 09/25/16 11:12 11:21 16:25 WBC RBC Hgb Hct MCV MCH MCHC RDW Plt Count MPV Neut % (Auto) Lymph % (Auto) Weber % (Auto) Eos % (Auto) Baso % (Auto) Neut # Lymph # Weber # Eos # Baso # Haptoglobin 115 PT INR APTT Sodium Potassium Chloride Carbon Dioxide Anion Gap BUN Creatinine Est GFR ( Amer) Est GFR (Non-Af Amer) POC Glucose (mg/dL) 119 H Random Glucose Hemoglobin A1c Calcium Total Bilirubin AST ALT Alkaline Phosphatase Total Protein Albumin Globulin Albumin/Globulin Ratio Triglycerides Cholesterol LDL Cholesterol Direct HDL Cholesterol Free T4 Total T3 TSH 3rd Generation Urine Microalbumin 264.6 H 09/25/16 09/26/16 09/26/16 21:45 03:19 03:19 WBC 12.6 H RBC 2.42 L Hgb 7.2 L D Hct 22.2 L MCV 91.9 D MCH 29.9 MCHC 32.5 L RDW 17.1 H Plt Count 185 MPV 8.4 Neut % (Auto) 77.5 H Lymph % (Auto) 17.4 L Weber % (Auto) 4.1 Eos % (Auto) 0.6 Baso % (Auto) 0.4 Neut # 9.8 H Lymph # 2.2 Weber # 0.5 Eos # 0.1 Baso # 0.0 Haptoglobin PT 11.5 INR 1.0 APTT 31 Sodium Potassium Chloride Carbon Dioxide Anion Gap BUN Creatinine Est GFR ( Amer) Est GFR (Non-Af Amer) POC Glucose (mg/dL) 152 H Random Glucose Hemoglobin A1c Calcium Total Bilirubin AST ALT Alkaline Phosphatase Total Protein Albumin Globulin Albumin/Globulin Ratio Triglycerides Cholesterol LDL Cholesterol Direct HDL Cholesterol Free T4 Total T3 TSH 3rd Generation Urine Microalbumin 09/26/16 09/26/16 09/26/16 03:19 03:19 03:19 WBC RBC Hgb Hct MCV MCH MCHC RDW Plt Count MPV Neut % (Auto) Lymph % (Auto) Weber % (Auto) Eos % (Auto) Baso % (Auto) Neut # Lymph # Weber # Eos # Baso # Haptoglobin PT INR APTT Sodium 141 Potassium 3.6 Chloride 103 Carbon Dioxide 29 Anion Gap 14 BUN 47 H Creatinine 1.8 H Est GFR ( Amer) 33 Est GFR (Non-Af Amer) 27 POC Glucose (mg/dL) Random Glucose 117 H Hemoglobin A1c 5.7 Calcium 9.0 Total Bilirubin 0.7 AST 28 ALT 22 Alkaline Phosphatase 37 L Total Protein 6.2 L Albumin 3.8 Globulin 2.4 Albumin/Globulin Ratio 1.6 Triglycerides 163 H D Cholesterol 148 LDL Cholesterol Direct 81 HDL Cholesterol 41 Free T4 0.19 L Total T3 0.540 L TSH 3rd Generation 61.30 H Urine Microalbumin 09/26/16 09/26/16 06:25 11:54 WBC RBC Hgb Hct MCV MCH MCHC RDW Plt Count MPV Neut % (Auto) Lymph % (Auto) Weber % (Auto) Eos % (Auto) Baso % (Auto) Neut # Lymph # Weber # Eos # Baso # Haptoglobin PT INR APTT Sodium Potassium Chloride Carbon Dioxide Anion Gap BUN Creatinine Est GFR ( Amer) Est GFR (Non-Af Amer) POC Glucose (mg/dL) 163 H 188 H Random Glucose Hemoglobin A1c Calcium Total Bilirubin AST ALT Alkaline Phosphatase Total Protein Albumin Globulin Albumin/Globulin Ratio Triglycerides Cholesterol LDL Cholesterol Direct HDL Cholesterol Free T4 Total T3 TSH 3rd Generation Urine Microalbumin Attending/Attestation - Attestation I have personally seen and examined this patient.: Yes I have fully participated in the care of the patient.: Yes I have reviewed all pertinent clinical information: Yes Notes (Text): 09/26/16 12:55 Medical attending: Patient was seen and examined by me. Agree with the above note by the resident. Patient was already getting PRBCs by the time I saw her. She reports history of anemia much of her life. The Hgb was very low 3.7 and I explained to her that she needs PRBCs Family member also present as well and explained to him. Will transfuse total 3 units today, then check portable film for potentialk fluid overload Also will need GI evalakuatiun, as there is positive + feccult occult Also recheck TSH as well
--- NOTE | 2016-09-25 08:59 | RAD ---
HISTORY: Weakness COMPARISON: 06/28/2016 FINDINGS: LUNGS: There is mild pulmonary venous congestion. There is no lobar pneumonia. PLEURA: No significant pleural effusion identified, no pneumothorax apparent. CARDIOVASCULAR: There is mild cardiomegaly. OSSEOUS STRUCTURES: No significant abnormalities. VISUALIZED UPPER ABDOMEN: Normal. OTHER FINDINGS: None. IMPRESSION: Mild cardiomegaly and pulmonary venous congestion.
[2016-09-25 11:48] LABS: RBC URINE 5 /hpf (0-3); URINE BACTERIA RARE (<OCC); URINE BILIRUBIN NEGATIVE (NEGATIVE); URINE BLOOD 2+ (NEGATIVE); URINE COLOR Yellow (YELLOW); URINE GLUCOSE (UA) NORMAL (Normal); URINE KETONE NEGATIVE (NEGATIVE); URINE LEUKOCYTE ESTERASE NEG Leu/uL (Negative); URINE PROTEIN 1+ mg/dL (NEGATIVE); URINE UROBILINOGEN NORMAL mg/dL (0.2-1.0); WBC URINE 4 /hpf (0-5)
[2016-09-25] MEDS: Pantoprazole 20 mg EC Tab PO SCH (11:49)
[2016-09-25] MEDS: diltiaZEM 240 mg/24 Hours CD Cap PO SCH (11:49)
--- NOTE | 2016-09-25 12:55 | RAD ---
HISTORY: patient feels congested s/p transfusion. COMPARISON: Chest x-ray performed 09/25/16 TECHNIQUE: Chest, one view. FINDINGS: Examination limited by habitus and hypoinflation. LUNGS: Interstitial prominence may reflect infection or edema. Please note that chest x-ray has limited sensitivity for the detection of pulmonary masses. PLEURA: No significant pleural effusion identified. No definite pneumothorax . CARDIOVASCULAR: Mild cardiomegaly. Atherosclerotic calcifications of the aorta. OSSEOUS STRUCTURES: Osseous demineralization. Degenerative changes. VISUALIZED UPPER ABDOMEN: Mild elevation of the right hemidiaphragm. OTHER FINDINGS: None. IMPRESSION: Mild interstitial prominence may reflect infection or edema.
--- NOTE | 2016-09-25 13:27 | CP.PCM.CON ---
History of Present Illness - History of Present Illness History of Present Illness: CC: Anemia HPI: GI consult requested to evaluate severe anemia. Patient is a 81 year old woman with AFib, HTN who is admitted for Hgb 3. She presented to the ER with weakness. 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 Patient was admitted in June 2016 with severe anemia, Hgb 6, and EGD, Colonoscopy, and capsule endoscopy did not reveal any source of bleeding in the GI tract. Her stool is hemoccult positive, and reticulocyte count is elevated. She is not on anticoagulants. Patient sees dark stools, attributed to Iron tablets. Review of Systems - Constitutional Constitutional: Malaise, Weakness. absent: Fever - EENT Eyes: absent: Change in Vision Ears: absent: Ear Pain Nose/Mouth/Throat: absent: Nasal Discharge - Cardiovascular Cardiovascular: absent: Chest Pain, Chest Pain at Rest, Dyspnea - Respiratory Respiratory: Dyspnea on Exertion - Gastrointestinal Gastrointestinal: absent: Abdominal Pain, Constipation, Diarrhea, Dysphagia, Heartburn, Hematochezia, Melena - Genitourinary Genitourinary: absent: Change in Urinary Stream - Musculoskeletal Musculoskeletal: absent: Back Pain - Integumentary Integumentary: absent: Unusual Bruising - Neurological Neurological: absent: Behavioral Changes - Psychiatric Psychiatric: absent: Anxiety - Endocrine Endocrine: Fatigue - Hematologic/Lymphatic Hematologic: absent: Easy Bleeding Past Patient History - Past Medical History & Family History Past Medical History?: Yes - Past Social History Smoking Status: Former Smoker Alcohol: None - CARDIAC Hx Cardia Arrhythmia: Yes Hx Congestive Heart Failure: Yes Hx Hypertension: Yes - PULMONARY Hx Respiratory Disorders: No - NEUROLOGICAL Hx Neurological Disorder: No - HEENT Hx HEENT Problems: Yes Hx Cataracts: Yes (bilateral, no surgery) - RENAL Hx Chronic Kidney Disease: No - ENDOCRINE/METABOLIC Hx Endocrine Disorders: Yes Hx Diabetes Mellitus Type 2: Yes - HEMATOLOGICAL/ONCOLOGICAL Hx Anemia: Yes - INTEGUMENTARY Hx Dermatological Problems: No - MUSCULOSKELETAL/RHEUMATOLOGICAL Hx Arthritis: Yes - GASTROINTESTINAL Hx Gastrointestinal Disorders: Yes Hx Colostomy: Yes Hx Hemorrhoids: Yes Other/Comment: Dark Stool a Month ago - GENITOURINARY/GYNECOLOGICAL Hx Genitourinary Disorders: No - PSYCHIATRIC Hx Substance Use: No - SURGICAL HISTORY Hx Surgeries: No - ANESTHESIA Hx Anesthesia: No Hx Anesthesia Reactions: No Hx Malignant Hyperthermia: No Meds Allergies/Adverse Reactions: Allergies Allergy/AdvReac Type Severity Reaction Status Date / Time No Known Allergies Allergy Verified 09/25/16 06:14 - Medications Medications: Current Medications Amiodarone HCl (Cordarone) 200 mg PO DAILY [facility] Last Admin: 09/25/16 11:49 Dose: 200 mg Budesonide (Pulmicort Respules) 0.25 mg INH RQ12 MARIBETH Diltiazem HCl (Cardizem Cd) 240 mg PO DAILY [facility] Last Admin: 09/25/16 11:49 Dose: 240 mg Furosemide (Lasix) 40 mg PO DAILY [facility] Last Admin: 09/25/16 11:50 Dose: 40 mg Sodium Chloride (Sodium Chloride 0.9%) 1,000 mls @ 100 mls/hr IV .Q10H ONE Stop: 09/25/16 16:24 Last Admin: 09/25/16 06:37 Dose: 100 mls/hr Pantoprazole Sodium (Protonix Ec Tab) 20 mg PO DAILY [facility] Last Admin: 09/25/16 11:49 Dose: 20 mg Physical Exam - Constitutional Appears: Chronically Ill, Other (Pale) - Head Exam Head Exam: NORMOCEPHALIC - Eye Exam Eye Exam: absent: Scleral icterus (Pale conjunctivae) - Neck Exam Neck exam: Positive for: Normal Inspection - Respiratory Exam Respiratory Exam: Clear to Auscultation Bilateral - Cardiovascular Exam Cardiovascular Exam: REGULAR RHYTHM - GI/Abdominal Exam GI & Abdominal Exam: Soft. absent: Organomegaly, Tenderness - Rectal Exam Rectal Exam: Deferred - Extremities Exam Extremities exam: Positive for: normal inspection - Back Exam Back exam: NORMAL INSPECTION - Neurological Exam Neurological exam: Alert, Oriented x3 - Psychiatric Exam Psychiatric exam: Normal Affect, Normal Mood - Skin Skin Exam: Pallor Results - Vital Signs Recent Vital Signs: Last Vital Signs Temp 98.1 F 09/25/16 07:50 Pulse 69 09/25/16 08:34 Resp 14 09/25/16 08:34 BP 122/71 09/25/16 11:50 Pulse Ox 97 09/25/16 08:34 - Labs Result Diagrams: 09/25/16 06:35 09/25/16 06:35 Labs: Laboratory Results - last 24 hr 09/25/16 09/25/16 09/25/16 11:12 11:12 11:12 Retic Count 8.1 H Iron 55 TIBC 385 % Saturation 14.28 L Ferritin 23.3 Vitamin B12 > 1000 H Urine Color Urine Clarity Urine pH Ur Specific [place] Urine Protein Urine Glucose (UA) Urine Ketones Urine Blood Urine Nitrate Urine Bilirubin Urine Urobilinogen Ur Leukocyte Esterase Urine WBC (Auto) Urine RBC (Auto) Ur Squamous Epith Cells Urine Bacteria Urine Microalbumin 09/25/16 09/25/16 11:17 11:21 Retic Count Iron TIBC % Saturation Ferritin Vitamin B12 Urine Color Yellow Urine Clarity Clear Urine pH 5.0 Ur Specific [place] 1.015 Urine Protein 1+ H Urine Glucose (UA) Normal Urine Ketones Negative Urine Blood 2+ H Urine Nitrate Negative Urine Bilirubin Negative Urine Urobilinogen Normal Ur Leukocyte Esterase Neg Urine WBC (Auto) 4 Urine RBC (Auto) 5 H Ur Squamous Epith Cells < 1 Urine Bacteria Rare Urine Microalbumin 264.6 H Assessment & Plan (1) Anemia Assessment and Plan: Recurrent anemia requiring transfusion, obscure origin, S/P recent EGD/ Colonoscopy/Capsule endoscopy. Suspect SB source of intermittent slow blood losses Rec: EGD to be repeated tomorrow. If no source identified, will need referral for Enteroscopy. Transfuse PRBCs as needed, as patient has cardiac history. Will follow up on cardiology recommendations Status: Acute (2) Atrial fibrillation with controlled ventricular response Assessment and Plan: Not on anticiagulation. Cardiology consult in progress. Status: Acute - Date & Time Date: 09/25/16 Time: 13:35
--- NOTE | 2016-09-25 13:33 | CP.PCM.CON ---
History of Present Illness - History of Present Illness History of Present Illness: Patient is a 81 year old woman with AFib, HTN who is admitted for Hgb 3. She presented to the ER with weakness. 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 Patient was admitted in June 2016 with severe anemia, Hgb 6, and EGD, Colonoscopy, and capsule endoscopy did not reveal any source of bleeding in the GI tract. Her stool is hemoccult positive, and reticulocyte count is elevated. She is not on anticoagulants. Patient sees dark stools, attributed to Iron tablets. Other PMH: DM Consult dictated Possible has diabetic nephropathy Unknown if creatinine has been elevated previosly Will initiate renal evaluation. Past Patient History - Past Medical History & Family History Past Medical History?: Yes Past Family History: Reviewed and not pertinent - Past Social History Smoking Status: Former Smoker Alcohol: None - CARDIAC Hx Cardia Arrhythmia: Yes Hx Congestive Heart Failure: Yes Hx Hypertension: Yes - PULMONARY Hx Respiratory Disorders: No - NEUROLOGICAL Hx Neurological Disorder: No - HEENT Hx HEENT Problems: Yes Hx Cataracts: Yes (bilateral, no surgery) - RENAL Hx Chronic Kidney Disease: No - ENDOCRINE/METABOLIC Hx Endocrine Disorders: Yes Hx Diabetes Mellitus Type 2: Yes - HEMATOLOGICAL/ONCOLOGICAL Hx Anemia: Yes - INTEGUMENTARY Hx Dermatological Problems: No - MUSCULOSKELETAL/RHEUMATOLOGICAL Hx Arthritis: Yes - GASTROINTESTINAL Hx Gastrointestinal Disorders: Yes Hx Colostomy: Yes Hx Hemorrhoids: Yes Other/Comment: Dark Stool a Month ago - GENITOURINARY/GYNECOLOGICAL Hx Genitourinary Disorders: No - PSYCHIATRIC Hx Substance Use: No - SURGICAL HISTORY Hx Surgeries: No - ANESTHESIA Hx Anesthesia: No Hx Anesthesia Reactions: No Hx Malignant Hyperthermia: No Meds Allergies/Adverse Reactions: Allergies Allergy/AdvReac Type Severity Reaction Status Date / Time No Known Allergies Allergy Verified 09/25/16 06:14 - Medications Medications: Current Medications Amiodarone HCl (Cordarone) 200 mg PO DAILY [facility] Last Admin: 09/25/16 11:49 Dose: 200 mg Budesonide (Pulmicort Respules) 0.25 mg INH RQ12 [facility] Diltiazem HCl (Cardizem Cd) 240 mg PO DAILY [facility] Last Admin: 09/25/16 11:49 Dose: 240 mg Furosemide (Lasix) 40 mg PO DAILY [facility] Last Admin: 09/25/16 11:50 Dose: 40 mg Sodium Chloride (Sodium Chloride 0.9%) 1,000 mls @ 100 mls/hr IV .Q10H ONE Stop: 09/25/16 16:24 Last Admin: 09/25/16 06:37 Dose: 100 mls/hr Pantoprazole Sodium (Protonix Ec Tab) 20 mg PO DAILY [facility] Last Admin: 09/25/16 11:49 Dose: 20 mg Results - Vital Signs Recent Vital Signs: Last Vital Signs Temp 98.1 F 09/25/16 07:50 Pulse 69 09/25/16 08:34 Resp 14 09/25/16 08:34 BP 122/71 09/25/16 11:50 Pulse Ox 97 09/25/16 08:34 - Labs Result Diagrams: 09/25/16 06:35 09/25/16 06:35 Labs: Laboratory Results - last 24 hr 09/25/16 09/25/16 09/25/16 11:12 11:12 11:12 Retic Count 8.1 H Iron 55 TIBC 385 % Saturation 14.28 L Ferritin 23.3 Vitamin B12 > 1000 H Urine Color Urine Clarity Urine pH Ur Specific [place] Urine Protein Urine Glucose (UA) Urine Ketones Urine Blood Urine Nitrate Urine Bilirubin Urine Urobilinogen Ur Leukocyte Esterase Urine WBC (Auto) Urine RBC (Auto) Ur Squamous Epith Cells Urine Bacteria Urine Microalbumin 09/25/16 09/25/16 11:17 11:21 Retic Count Iron TIBC % Saturation Ferritin Vitamin B12 Urine Color Yellow Urine Clarity Clear Urine pH 5.0 Ur Specific [place] 1.015 Urine Protein 1+ H Urine Glucose (UA) Normal Urine Ketones Negative Urine Blood 2+ H Urine Nitrate Negative Urine Bilirubin Negative Urine Urobilinogen Normal Ur Leukocyte Esterase Neg Urine WBC (Auto) 4 Urine RBC (Auto) 5 H Ur Squamous Epith Cells < 1 Urine Bacteria Rare Urine Microalbumin 264.6 H
[2016-09-25] MEDS: (Novolog) Insulin Aspart, Recombinant 100 u/ml 10 ml vial SC SCH ×2 (17:16→22:00)
--- NOTE | 2016-09-25 18:10 | CON ---
DATE: 09/25/2016 HISTORY OF PRESENT ILLNESS: The patient is a 81-year-old white female who has a known history of atr ial fibrillation, hypertension, and diabetes mellitus type 2. She presents with a hemoglobin of 3. She came to the ER with weakness. She has history of recurrent blood transfusion dependence and anem ia. She had previous blood transfusions within the last year. Had a workup, including colonoscopy a nd a tablet study for small colon that was reportedly negative. Nonetheless, she has been on anticoa gulants for atrial fibrillation and she had reported dark stools, but she had been on iron tablets. PAST MEDICAL HISTORY: Then again is recurrent anemia and chronic anemia, paroxysmal atrial fibrillat ion, hypertension, diabetes mellitus type 2. No known chronic kidney disease as per patient. PAST SURGICAL HISTORY: She did have cataract surgery. MEDICATIONS: Include diltiazem, amiodarone, furosemide, Protonix. She had been getting IV saline in the Emergency Department. SOCIAL HISTORY: Positive for being a former smoker. No history of illicit drug use or alcohol abuse . REVIEW OF SYSTEMS: Extreme weakness. No dyspnea on exertion, no chest pain, no swelling. She has a bdominal distention, but no abdominal pain. No rashes. No visual disturbances or hearing deficits. PHYSICAL EXAMINATION: GENERAL: She is a well-developed female in no acute distress. VITAL SIGNS: Blood pressure 138/64, temperature 97.7, pulse 83, pulse ox 97% on room air. HEENT: She is anicteric. Mouth is clear. NECK: No JVD. LUNGS: Lung eng are clear. HEART: Regular rhythm, no murmur. ABDOMEN: Moderately distended. No mass or organomegaly. EXTREMITIES: No peripheral edema. NEUROLOGIC: No focal deficits. LABORATORY DATA: Blood work showed creatinine of 1.9, GFR of 26, and potassium 4.1. Iron saturation is 14%. The proBNP is 1690, which is moderately elevated. Urine had 1+ protein and urine microalbu min was positive. IMPRESSION: The patient has acute kidney injury. She possibly has diabetic nephropathy with p roteinuria. She has severe anemia, possibly gastrointestinal bleeding. She has transfusion dependen t chronic anemia. PLAN: Will be for GI workup. Is being done now by GI. Will do renal ultrasound. Will check for pr oteinuria and serial chemistries. Will follow up. Rolando Bill MD cc: [id number] TT: 09/25/2016 18:10:18 Confirmation # [id number] Dictation # [id number] dn
[2016-09-25] MEDS: Budesonide 0.25 mg/2 ml Inhal Susp UD INH SCH (20:12)
--- NOTE | 2016-09-25 21:05 | CP.PCM.CON ---
Past Patient History - Past Medical History & Family History Past Medical History?: Yes - Past Social History Smoking Status: Former Smoker - CARDIAC Hx Cardia Arrhythmia: Yes Hx Congestive Heart Failure: Yes Hx Hypertension: Yes - PULMONARY Hx Respiratory Disorders: No - NEUROLOGICAL Hx Neurological Disorder: No - HEENT Hx HEENT Problems: Yes Hx Cataracts: Yes (bilateral, no surgery) - RENAL Hx Chronic Kidney Disease: No - ENDOCRINE/METABOLIC Hx Endocrine Disorders: Yes Hx Diabetes Mellitus Type 2: Yes - HEMATOLOGICAL/ONCOLOGICAL Hx Anemia: Yes - INTEGUMENTARY Hx Dermatological Problems: No - MUSCULOSKELETAL/RHEUMATOLOGICAL Hx Arthritis: Yes - GASTROINTESTINAL Hx Gastrointestinal Disorders: Yes Hx Colostomy: Yes Hx Hemorrhoids: Yes Other/Comment: Dark Stool a Month ago - GENITOURINARY/GYNECOLOGICAL Hx Genitourinary Disorders: No - PSYCHIATRIC Hx Substance Use: No - SURGICAL HISTORY Hx Surgeries: No - ANESTHESIA Hx Anesthesia: No Hx Anesthesia Reactions: No Hx Malignant Hyperthermia: No Meds Allergies/Adverse Reactions: Allergies Allergy/AdvReac Type Severity Reaction Status Date / Time No Known Allergies Allergy Verified 09/25/16 06:14 - Medications Medications: Current Medications Amiodarone HCl (Cordarone) 200 mg PO DAILY [facility] Last Admin: 09/25/16 11:49 Dose: 200 mg Budesonide (Pulmicort Respules) 0.25 mg INH RQ12 [facility] Last Admin: 09/25/16 20:12 Dose: 0.25 mg Diltiazem HCl (Cardizem Cd) 240 mg PO DAILY [facility] Last Admin: 09/25/16 11:49 Dose: 240 mg Furosemide (Lasix) 40 mg PO DAILY [facility] Last Admin: 09/25/16 11:50 Dose: 40 mg Insulin Aspart (Novolog) 0 unit SC [facility] PRN Reason: Protocol Last Admin: 09/25/16 17:16 Dose: Not Given Pantoprazole Sodium (Protonix Ec Tab) 20 mg PO DAILY [facility] Last Admin: 09/25/16 11:49 Dose: 20 mg Results - Vital Signs Recent Vital Signs: Last Vital Signs Temp 98.7 F 09/25/16 20:30 Pulse 63 09/25/16 20:30 Resp 20 09/25/16 20:30 BP 111/54 L 09/25/16 20:30 Pulse Ox 100 09/25/16 16:41 - Labs Result Diagrams: 09/25/16 06:35 09/25/16 06:35 Labs: Laboratory Results - last 24 hr 09/25/16 09/25/16 09/25/16 11:12 11:12 11:12 Retic Count 8.1 H POC Glucose (mg/dL) Iron 55 TIBC 385 % Saturation 14.28 L Ferritin 23.3 Vitamin B12 > 1000 H Urine Color Urine Clarity Urine pH Ur Specific [place] Urine Protein Urine Glucose (UA) Urine Ketones Urine Blood Urine Nitrate Urine Bilirubin Urine Urobilinogen Ur Leukocyte Esterase Urine WBC (Auto) Urine RBC (Auto) Ur Squamous Epith Cells Urine Bacteria Urine Microalbumin 09/25/16 09/25/16 09/25/16 11:17 11:21 16:25 Retic Count POC Glucose (mg/dL) 119 H Iron TIBC % Saturation Ferritin Vitamin B12 Urine Color Yellow Urine Clarity Clear Urine pH 5.0 Ur Specific [place] 1.015 Urine Protein 1+ H Urine Glucose (UA) Normal Urine Ketones Negative Urine Blood 2+ H Urine Nitrate Negative Urine Bilirubin Negative Urine Urobilinogen Normal Ur Leukocyte Esterase Neg Urine WBC (Auto) 4 Urine RBC (Auto) 5 H Ur Squamous Epith Cells < 1 Urine Bacteria Rare Urine Microalbumin 264.6 H
[2016-09-26 03:25] LABS: BASO % 0.4 % (0.0-2.0); EOS # 0.1 K/uL (0.0-0.7); EOS % 0.6 % (0.0-4.0); HEMATOCRIT 22.2 % (34.0-47.0); LYMPH # 2.2 K/uL (1.0-4.3); LYMPH % 17.4 % (20.0-40.0); MEAN CELL VOLUME 91.9 fL (81.0-99.0); MEAN CORPUSCULAR HEMOGLOBIN 29.9 pg (27.0-31.0); MEAN CORPUSCULAR HGB CONC 32.5 g/dL (33.0-37.0); MEAN PLATELET VOLUME 8.4 fL (7.2-11.7); MONO # 0.5 K/uL (0.0-0.8); MONO % 4.1 % (0.0-10.0); NRBC % 0.1 % (0.0-2.0); RED CELL DISTRIBUTION WIDTH 17.1 % (11.5-14.5); WHITE BLOOD COUNT 12.6 K/uL (4.8-10.8)
[2016-09-26 03:42] LABS: POTASSIUM 3.6 mmol/L (3.6-5.2)
[2016-09-26 03:45] LABS: ALB/GLOB RATIO 1.6 (1.0-2.1); BILIRUBIN,TOTAL 0.7 mg/dL (0.2-1.3); TOTAL PROTEIN 6.2 g/dL (6.3-8.3)
[2016-09-26 04:14] LABS: THYROID STIMULATING HORMONE 61.3 mIU/L (0.46-4.68)
--- NOTE | 2016-09-26 06:50 | CP.PCM.PN ---
<[email or web address] - Last Filed: 09/26/16 12:35> Subjective - Date & Time of Evaluation Date of Evaluation: 09/26/16 Time of Evaluation: 06:27 - Subjective Subjective: PGY 1 Medicine Note- Dr. Muñoz's service Pt seen and examined in no acute distress. Patient with no complaints at the moment. She is s/p 3 blood transfusions . Patient s/p EGD with limited findings noted. Patient denies fevers, chills, nausea, vomiting, diarrhea, constipation, headaches, chest pain or palpitations at this time. Objective - Vital Signs/Intake and Output Vital Signs (last 24 hours): Temp Pulse Resp BP Pulse Ox 97.8 F 64 20 115/67 95 09/26/16 05:42 09/26/16 05:42 09/26/16 05:42 09/26/16 05:42 09/25/16 23:45 Intake and Output: 09/25/16 09/26/16 18:59 06:59 Intake Total 1435 1245 Output Total 400 Balance 1435 845 - Medications Medications: Current Medications Amiodarone HCl (Cordarone) 200 mg PO DAILY [facility] Last Admin: 09/25/16 11:49 Dose: 200 mg Budesonide (Pulmicort Respules) 0.25 mg INH RQ12 [facility] Last Admin: 09/25/16 20:12 Dose: 0.25 mg Diltiazem HCl (Cardizem Cd) 240 mg PO DAILY [facility] Last Admin: 09/25/16 11:49 Dose: 240 mg Furosemide (Lasix) 40 mg PO DAILY [facility] Last Admin: 09/25/16 11:50 Dose: 40 mg Insulin Aspart (Novolog) 0 unit SC [facility] PRN Reason: Protocol Last Admin: 09/25/16 17:16 Dose: Not Given Pantoprazole Sodium (Protonix Ec Tab) 20 mg PO DAILY [facility] Last Admin: 09/25/16 11:49 Dose: 20 mg - Labs Labs: 09/26/16 03:19 09/26/16 03:19 PT 11.5 SECONDS (9.7-12.2) 09/26/16 03:19 INR 1.0 09/26/16 03:19 APTT 31 SECONDS (21-34) 09/26/16 03:19 - Constitutional Appears: Non-toxic, No Acute Distress - Head Exam Head Exam: ATRAUMATIC, NORMAL INSPECTION, NORMOCEPHALIC - Eye Exam Eye Exam: EOMI, Normal appearance, PERRL Pupil Exam: NORMAL ACCOMODATION, PERRL - ENT Exam ENT Exam: Mucous Membranes Moist - Neck Exam Neck Exam: Full ROM - Respiratory Exam Respiratory Exam: Clear to Ausculation Bilateral, NORMAL BREATHING PATTERN. absent: Wheezes - Cardiovascular Exam Cardiovascular Exam: +S1, +S2 - GI/Abdominal Exam GI & Abdominal Exam: Soft, Normal Bowel Sounds - Extremities Exam Extremities Exam: Full ROM, Normal Capillary Refill, Pedal Edema - Back Exam Back Exam: Full ROM - Neurological Exam Neurological Exam: Alert, Awake - Psychiatric Exam Psychiatric exam: Normal Affect, Normal Mood - Skin Skin Exam: Intact, Pallor (improved) Assessment and Plan (1) Symptomatic anemia Status: Acute (2) Acute kidney injury Status: Acute (3) History of atrial fibrillation Status: Acute (4) Diabetes Status: Acute (5) HTN (hypertension) Status: Acute (6) History of gastroesophageal reflux (GERD) Status: Acute (7) Prophylactic measure Status: Acute - Assessment and Plan (Free Text) Assessment: Symptomatic anemia Assessment and Plan: s/p 3 units PRBC. F/U CBC 7.2. Will transfuse an additional 2 units. F/U post transfusion CBC Monitor for signs of fluid overload. STAT Chest Xray post transfusion of first unit: mild interstitial prominence. AM CXR: mild venous congestive changes noted. will monitor for clinical signs of fluid overload. At this point, not appreciated. F/U repeat CXR in AM Monitor for signs of adverse reaction to transfusion Patient with hx of 2 weeks of dark stools: Stool occult positive: Rule out GI bleed F/U GI (Dr. Reyes) recommendations EGD 09/26: Z line regular, LA grade A esophagitis, small hiatal hernia. Reccs to resume diabetic diet. Considerations for full enteroscopy. Anemia can be further exacerbated by decreased kidney function. Cr and BUN elevated Nephrology recommendations- IV iron , quantify proteinuria; check SPEP. . F/U Status: Acute Acute kidney injury Assessment and Plan: BUN and Cr elevated as noted above Renal US- b/l cortical thinning, no calculus appreciated or hydronephrosis, b/l renal/ parapelvic cysts. refer to complete report. F/U 24 hr Urine collection F/U Nephro ( Dr. Bill group recommendations) as noted above Status: Acute History of atrial fibrillation Assessment and Plan: On Amiodarone and Cardizem On telemetry monitoring: Rate and rhythm controlled F/U Cardiology ( Dr. Zelaya) recommendations Prior Echo from 2016 with EF 83%, LV normal size, borderline concentric left ventricular hypertrophy with normal LVEF, mitral valve leaflets are thickened and calcified, moderate to severe pulm HTN noted. Status: Acute Diabetes Assessment and Plan: Accuchecks Medium dose ISS Hold Glipizide at this time. Status: Acute Hypothyroidism Assessment and Plan: Abnormal thyroid studies Begin Levothyroxine 75 mcg daily Status: Acute HTN (hypertension) Assessment and Plan: Normotensive at this time. Cont to monitor. Status: Acute History of gastroesophageal reflux (GERD) Assessment and Plan: Protonix 20 mg PO daily Status: Acute Prophylactic measure Assessment and Plan: Chemical anticoagulation contraindicated due to suspected GI bleed as well as low Hgb SCDs contraindicated due to b/l LE swelling PPI 20 mg daily Fall risk protocol Status: Acute <José Antonio Muñoz H - Last Filed: 09/26/16 14:37> Objective - Vital Signs/Intake and Output Vital Signs (last 24 hours): Temp Pulse Resp BP Pulse Ox 98.6 F 65 16 115/61 98 09/26/16 14:24 09/26/16 14:24 09/26/16 14:24 09/26/16 14:24 09/26/16 09:26 Intake and Output: 09/26/16 09/26/16 06:59 18:59 Intake Total 1245 75 Output Total 400 Balance 845 75 - Medications Medications: Current Medications Acetaminophen (Tylenol 325mg Tab) 650 mg PO Q6 PRN PRN Reason: Headache Amiodarone HCl (Cordarone) 200 mg PO DAILY [facility] Last Admin: 09/26/16 09:26 Dose: 200 mg Budesonide (Pulmicort Respules) 0.25 mg INH RQ12 [facility] Last Admin: 09/25/16 20:12 Dose: 0.25 mg Diltiazem HCl (Cardizem Cd) 240 mg PO DAILY [facility] Last Admin: 09/26/16 09:27 Dose: 240 mg Ferric Sodium Gluconate Complex (Ferrlecit) 125 mg IVPB DAILY [facility] Stop: 06/21/17 11:16 Last Admin: 09/26/16 12:13 Dose: 125 mg Insulin Aspart (Novolog) 0 unit SC [facility] PRN Reason: Protocol Last Admin: 09/26/16 12:13 Dose: 2 unit Levothyroxine Sodium (Synthroid) 75 mcg PO DAILY@0630 [facility] Pantoprazole Sodium (Protonix Ec Tab) 20 mg PO DAILY [facility] Last Admin: 09/26/16 09:27 Dose: 20 mg - Labs Labs: 09/26/16 03:19 09/26/16 03:19 PT 11.5 SECONDS (9.7-12.2) 09/26/16 03:19 INR 1.0 09/26/16 03:19 APTT 31 SECONDS (21-34) 09/26/16 03:19 Attending/Attestation - Attestation I have personally seen and examined this patient.: Yes I have fully participated in the care of the patient.: Yes I have reviewed all pertinent clinical information, including history, physical exam and plan: Yes Notes (Text): Medical Attending: Patient was seen and examined by me as well. Agree with the above note by the resident. The patient Hgb was now 7.2, earlier in the day had EGD done. Will give additional PRBC today again. Also another chest XRAY to monitor for potential fluid overload. Also TSH returned and was high with a very low T3 and T4. She explains she was not perviously on thyroid medication and we have started it. Patient reports feeling better after transfusion yesterday. Still feels fatigue. Not as short of breath. Denied chest pain thank you José Antonio Muñoz
[2016-09-26] MEDS ORDERED: Propofol 10 mg/ml Inj (20 ML) ONE (07:45)
[2016-09-26] MEDS ORDERED: Lidocaine Hydrochloride 5 ML INJ ONE (07:45)
[2016-09-26] MEDS: (Novolog) Insulin Aspart, Recombinant 100 u/ml 10 ml vial SC SCH ×4 (07:53→21:18)
[2016-09-26] MEDS: Pantoprazole 20 mg EC Tab PO SCH (09:27)
[2016-09-26] MEDS: diltiaZEM 240 mg/24 Hours CD Cap PO SCH (09:27)
--- NOTE | 2016-09-26 10:36 | US ---
PROCEDURE: Ultrasound of the Kidneys HISTORY: ckd eval COMPARISON: Included upper abdomen on CT of the chest without contrast performed 07/02/16, abdominal ultrasound performed 10/01/12 TECHNIQUE: Sonogram of the kidneys. FINDINGS: RIGHT KIDNEY: Measures: 9.8 x 4.8 x 4.5 cm. Cortical thinning. No obstructing calculus or hydronephrosis identified. Probable parapelvic cyst measuring approximately 2.1 cm. Lower pole cyst measuring approximately 1.6 x 1.3 x 1.7 cm. LEFT KIDNEY: Measures: 9.9 x 4.5 x 4.5 cm. Cortical thinning. No obstructing calculus or hydronephrosis identified. Probable parapelvic cyst measuring approximately 1.7 cm. OTHER FINDINGS: None. IMPRESSION: No obstructing calculus or hydronephrosis. Bilateral cortical thinning. Bilateral renal/parapelvic cysts.
--- NOTE | 2016-09-26 11:14 | CP.PCM.PN ---
Subjective - Date & Time of Evaluation Date of Evaluation: 09/26/16 Time of Evaluation: 11:12 - Subjective Subjective: seen and examined hgb 7.2 mg/dl after blood transfusion on lasix creatinine 1.8mg/dl renal us noted, cortical thinning and multiple thinning egd done pt denies any n/v/d/sob/chest pain. Objective - Vital Signs/Intake and Output Vital Signs (last 24 hours): Temp Pulse Resp BP Pulse Ox 98.3 F 70 14 126/71 98 09/26/16 09:26 09/26/16 09:26 09/26/16 09:26 09/26/16 09:26 09/26/16 09:26 Intake and Output: 09/26/16 09/26/16 06:59 18:59 Intake Total 1245 75 Output Total 400 Balance 845 75 - Medications Medications: Current Medications Amiodarone HCl (Cordarone) 200 mg PO DAILY [facility] Last Admin: 09/26/16 09:26 Dose: 200 mg Budesonide (Pulmicort Respules) 0.25 mg INH RQ12 [facility] Last Admin: 09/25/16 20:12 Dose: 0.25 mg Diltiazem HCl (Cardizem Cd) 240 mg PO DAILY [facility] Last Admin: 09/26/16 09:27 Dose: 240 mg Epoetin Eddie (Procrit) 10,000 unit SC ONCE ONE Stop: 09/26/16 11:12 Ferric Sodium Gluconate Complex (Ferrlecit) 125 mg IVPB DAILY [facility] Stop: 10/04/16 11:16 Furosemide (Lasix) 40 mg PO DAILY [facility] Last Admin: 09/26/16 09:26 Dose: 40 mg Insulin Aspart (Novolog) 0 unit SC [facility] PRN Reason: Protocol Last Admin: 09/26/16 07:53 Dose: Not Given Levothyroxine Sodium (Synthroid) 75 mcg PO DAILY@0630 [facility] Pantoprazole Sodium (Protonix Ec Tab) 20 mg PO DAILY [facility] Last Admin: 09/26/16 09:27 Dose: 20 mg - Labs Labs: 09/26/16 03:19 09/26/16 03:19 PT 11.5 SECONDS (9.7-12.2) 09/26/16 03:19 INR 1.0 09/26/16 03:19 APTT 31 SECONDS (21-34) 09/26/16 03:19 - Constitutional Appears: Non-toxic, Chronically Ill (obese) - Head Exam Head Exam: NORMAL INSPECTION - Eye Exam Eye Exam: Normal appearance - ENT Exam ENT Exam: Mucous Membranes Moist, Normal Exam - Neck Exam Neck Exam: Normal Inspection - Respiratory Exam Respiratory Exam: Decreased Breath Sounds, Wheezes - Cardiovascular Exam Cardiovascular Exam: REGULAR RHYTHM, RRR - GI/Abdominal Exam GI & Abdominal Exam: Distended, Soft, Diminished Bowel Sounds - Extremities Exam Extremities Exam: Normal Inspection Assessment and Plan (1) Acute kidney injury Status: Acute (2) Diabetes Status: Acute (3) HTN (hypertension) Status: Acute (4) Symptomatic anemia Status: Acute - Assessment and Plan (Free Text) Assessment: iv iron and rani ordered check folate and b12, recommend multivitamin quantify proteinuria check spep received lasix x 2 doses, hold off for now.
[2016-09-26] MEDS ORDERED: EPOETIN ALFA 10,000 UNIT/ML ML SC ONE (12:00)
[2016-09-26] MEDS: Ferric Sodium Gluconat Complex 62.5 mg/5 ml Vial IVPB SCH (12:13)
--- NOTE | 2016-09-26 12:25 | RAD ---
HISTORY: rule out fluid overload COMPARISON: AllNo prior. FINDINGS: LUNGS: Mild pulmonary venous congestive changes ; could be due to fluid overload. Clinic correlation recommended. Suspect mild bibasilar atelectasis left greater than right. Developing infiltrates could excluded followup radiographs. . PLEURA: No significant pleural effusion identified, no pneumothorax apparent. CARDIOVASCULAR: Normal. OSSEOUS STRUCTURES: No significant abnormalities. VISUALIZED UPPER ABDOMEN: Normal. OTHER FINDINGS: None. IMPRESSION: Mild pulmonary venous congestive changes ; could be due to fluid overload. Clinic correlation recommended. Suspect mild bibasilar atelectasis left greater than right. Developing infiltrates could excluded followup radiographs. .
--- NOTE | 2016-09-26 14:05 | CARD ---
APPROVED REPORT EKG Measurement Heart [id number] <Conclusion> Normal sinus rhythm Normal ECG
[2016-09-26] MEDS: Budesonide 0.25 mg/2 ml Inhal Susp UD INH SCH (19:19)
--- NOTE | 2016-09-26 22:17 | CP.PCM.PN ---
Subjective - Date & Time of Evaluation Date of Evaluation: 09/26/16 Time of Evaluation: 15:10 Objective - Vital Signs/Intake and Output Vital Signs (last 24 hours): Temp Pulse Resp BP Pulse Ox 98.5 F 66 20 121/63 95 09/26/16 21:35 09/26/16 21:35 09/26/16 21:35 09/26/16 21:35 09/26/16 16:00 Intake and Output: 09/26/16 09/27/16 18:59 06:59 Intake Total 450 0 Balance 450 0 - Medications Medications: Current Medications Acetaminophen (Tylenol 325mg Tab) 650 mg PO Q6 PRN PRN Reason: Headache Amiodarone HCl (Cordarone) 200 mg PO DAILY [facility] Last Admin: 09/26/16 09:26 Dose: 200 mg Budesonide (Pulmicort Respules) 0.25 mg INH RQ12 [facility] Last Admin: 09/26/16 19:19 Dose: 0.25 mg Diltiazem HCl (Cardizem Cd) 240 mg PO DAILY [facility] Last Admin: 09/26/16 09:27 Dose: 240 mg Ferric Sodium Gluconate Complex (Ferrlecit) 125 mg IVPB DAILY [facility] Stop: 10/04/16 11:16 Last Admin: 09/26/16 12:13 Dose: 125 mg Insulin Aspart (Novolog) 0 unit SC ACHS [facility] PRN Reason: Protocol Last Admin: 09/26/16 21:18 Dose: Not Given Levothyroxine Sodium (Synthroid) 75 mcg PO DAILY@0630 [facility] Pantoprazole Sodium (Protonix Ec Tab) 20 mg PO DAILY [facility] Last Admin: 09/26/16 09:27 Dose: 20 mg - Labs Labs: 09/26/16 03:19 09/26/16 03:19 PT 11.5 SECONDS (9.7-12.2) 09/26/16 03:19 INR 1.0 09/26/16 03:19 APTT 31 SECONDS (21-34) 09/26/16 03:19
[2016-09-27] MEDS: Levothyroxine 75 MCG TAB PO SCH (05:57)
[2016-09-27 07:16] LABS: BASO # 0.1 K/uL (0.0-0.2); BASO % 0.5 % (0.0-2.0); EOS # 0.1 K/uL (0.0-0.7); EOS % 1.2 % (0.0-4.0); HEMATOCRIT 30.2 % (34.0-47.0); LYMPH # 1.8 K/uL (1.0-4.3); LYMPH % 14.7 % (20.0-40.0); MEAN CELL VOLUME 90.6 fL (81.0-99.0); MEAN CORPUSCULAR HEMOGLOBIN 29.9 pg (27.0-31.0); MEAN PLATELET VOLUME 8.7 fL (7.2-11.7); MONO # 0.4 K/uL (0.0-0.8); MONO % 3.7 % (0.0-10.0); NRBC % 0.1 % (0.0-2.0); RED CELL DISTRIBUTION WIDTH 16.4 % (11.5-14.5); WHITE BLOOD COUNT 12.2 K/uL (4.8-10.8)
[2016-09-27 07:18] LABS: BASO # 0.1 K/uL (0.0-0.2); BASO % 0.5 % (0.0-2.0); EOS # 0.1 K/uL (0.0-0.7); EOS % 1.1 % (0.0-4.0); HEMATOCRIT 30.5 % (34.0-47.0); LYMPH # 1.8 K/uL (1.0-4.3); LYMPH % 14.6 % (20.0-40.0); MEAN CELL VOLUME 90.7 fL (81.0-99.0); MEAN CORPUSCULAR HEMOGLOBIN 29.7 pg (27.0-31.0); MEAN CORPUSCULAR HGB CONC 32.7 g/dL (33.0-37.0); MEAN PLATELET VOLUME 8.6 fL (7.2-11.7); MONO # 0.5 K/uL (0.0-0.8); MONO % 3.8 % (0.0-10.0); NRBC % 0.2 % (0.0-2.0); RED CELL DISTRIBUTION WIDTH 16.4 % (11.5-14.5); WHITE BLOOD COUNT 12.3 K/uL (4.8-10.8)
[2016-09-27 07:28] LABS: ALB/GLOB RATIO 1.6 (1.0-2.1); TOTAL PROTEIN 6.2 g/dL (6.3-8.3)
[2016-09-27 07:29] LABS: CALCIUM 8.7 mg/dl (8.6-10.4); PHOSPHOROUS 4.4 mg/dL (2.5-4.5)
[2016-09-27 07:48] LABS: POTASSIUM 3.5 mmol/L (3.6-5.2)
[2016-09-27 07:50] LABS: BILIRUBIN,TOTAL 0.8 mg/dL (0.2-1.3)
[2016-09-27 07:51] LABS: MAGNESIUM 2.2 mg/dL (1.6-2.3)
[2016-09-27] MEDS: (Novolog) Insulin Aspart, Recombinant 100 u/ml 10 ml vial SC SCH ×4 (08:22→21:21)
[2016-09-27] MEDS: Budesonide 0.25 mg/2 ml Inhal Susp UD INH SCH ×2 (08:27→19:51)
[2016-09-27] MEDS: diltiaZEM 240 mg/24 Hours CD Cap PO SCH (09:22)
[2016-09-27] MEDS: Pantoprazole 20 mg EC Tab PO SCH (09:22)
[2016-09-27] MEDS: Ferric Sodium Gluconat Complex 62.5 mg/5 ml Vial IVPB SCH (09:23)
[2016-09-27] MEDS ORDERED: Potassium Chloride 20 mEq ER Tab PO ONE ×2 (09:30→14:00)
--- NOTE | 2016-09-27 10:17 | RAD ---
Chest x-ray single frontal view History: Status post transfusion. Comparison: 09/26/2016 Findings: Mild venous congestion. Right hilar prominence. Patchy increased markings at the right lung base which may represent atelectasis and or infiltrate. Upper lobe granulomatous changes. Mild cardiomegaly. Degenerative changes in the spine. Impression: Mild venous congestion. Right hilar prominence. Patchy increased markings at the right lung base which may represent atelectasis and or infiltrate.
--- NOTE | 2016-09-27 10:44 | CP.PCM.CON ---
History of Present Illness - History of Present Illness History of Present Illness: Cardiology Progress Note for Dr. Zelaya Pt seen and examined at bedside. Pt doing well with no acute events overnight as per nursing. Pt hg stable at this time after receiving multiple transfusions during current stay. Denies CP, SOB, N/V/D, dizziness, weakness. Past Patient History - Past Medical History & Family History Past Medical History?: Yes - Past Social History Smoking Status: Former Smoker - CARDIAC Hx Cardia Arrhythmia: Yes Hx Congestive Heart Failure: Yes Hx Hypertension: Yes - PULMONARY Hx Respiratory Disorders: No - NEUROLOGICAL Hx Neurological Disorder: No - HEENT Hx HEENT Problems: Yes Hx Cataracts: Yes (bilateral, no surgery) - RENAL Hx Chronic Kidney Disease: No - ENDOCRINE/METABOLIC Hx Endocrine Disorders: Yes Hx Diabetes Mellitus Type 2: Yes - HEMATOLOGICAL/ONCOLOGICAL Hx Anemia: Yes - INTEGUMENTARY Hx Dermatological Problems: No - MUSCULOSKELETAL/RHEUMATOLOGICAL Hx Arthritis: Yes - GASTROINTESTINAL Hx Gastrointestinal Disorders: Yes Hx Colostomy: Yes Hx Hemorrhoids: Yes Other/Comment: Dark Stool a Month ago - GENITOURINARY/GYNECOLOGICAL Hx Genitourinary Disorders: No - PSYCHIATRIC Hx Substance Use: No - SURGICAL HISTORY Hx Surgeries: No - ANESTHESIA Hx Anesthesia: No Hx Anesthesia Reactions: No Hx Malignant Hyperthermia: No Meds Allergies/Adverse Reactions: Allergies Allergy/AdvReac Type Severity Reaction Status Date / Time No Known Allergies Allergy Verified 09/25/16 06:14 - Medications Medications: Current Medications Acetaminophen (Tylenol 325mg Tab) 650 mg PO Q6 PRN PRN Reason: Headache Last Admin: 09/27/16 05:57 Dose: 650 mg Amiodarone HCl (Cordarone) 200 mg PO DAILY [facility] Last Admin: 09/27/16 09:22 Dose: 200 mg Budesonide (Pulmicort Respules) 0.25 mg INH RQ12 [facility] Last Admin: 09/27/16 08:27 Dose: 0.25 mg Diltiazem HCl (Cardizem Cd) 240 mg PO DAILY [facility] Last Admin: 09/27/16 09:22 Dose: 240 mg Ferric Sodium Gluconate Complex (Ferrlecit) 125 mg IVPB DAILY [facility] Stop: 10/04/16 11:16 Last Admin: 09/27/16 09:23 Dose: 125 mg Insulin Aspart (Novolog) 0 unit SC ACHS [facility] PRN Reason: Protocol Last Admin: 09/27/16 08:22 Dose: Not Given Levothyroxine Sodium (Synthroid) 75 mcg PO DAILY@0630 [facility] Last Admin: 09/27/16 05:57 Dose: 75 mcg Pantoprazole Sodium (Protonix Ec Tab) 20 mg PO DAILY [facility] Last Admin: 09/27/16 09:22 Dose: 20 mg Results - Vital Signs Recent Vital Signs: Last Vital Signs Temp 97.2 F L 09/27/16 07:30 Pulse 63 09/27/16 07:30 Resp 18 09/27/16 07:30 BP 121/67 09/27/16 07:30 Pulse Ox 98 09/27/16 07:30 - Labs Result Diagrams: 09/27/16 07:06 09/27/16 07:06 Labs: Laboratory Results - last 24 hr 09/25/16 09/26/16 09/26/16 11:12 11:54 14:32 WBC RBC Hgb Hct MCV MCH MCHC RDW Plt Count MPV Neut % (Auto) Lymph % (Auto) Dodge % (Auto) Eos % (Auto) Baso % (Auto) Neut # Lymph # Dodge # Eos # Baso # Sodium Potassium Chloride Carbon Dioxide Anion Gap BUN Creatinine Est GFR ( Amer) Est GFR (Non-Af Amer) POC Glucose (mg/dL) 188 H Random Glucose Calcium Phosphorus Magnesium Total Bilirubin AST ALT Alkaline Phosphatase Total Protein Albumin Globulin Albumin/Globulin Ratio RBC Folate 1666 Urine Collection Time 24 Urine Total Volume 1450 Ur Protein 24 Hr Calc 797.5 H 09/26/16 09/26/16 09/27/16 16:44 21:10 06:46 WBC RBC Hgb Hct MCV MCH MCHC RDW Plt Count MPV Neut % (Auto) Lymph % (Auto) Dodge % (Auto) Eos % (Auto) Baso % (Auto) Neut # Lymph # Dodge # Eos # Baso # Sodium Potassium Chloride Carbon Dioxide Anion Gap BUN Creatinine Est GFR ( Amer) Est GFR (Non-Af Amer) POC Glucose (mg/dL) 144 H 196 H 137 H Random Glucose Calcium Phosphorus Magnesium Total Bilirubin AST ALT Alkaline Phosphatase Total Protein Albumin Globulin Albumin/Globulin Ratio RBC Folate Urine Collection Time Urine Total Volume Ur Protein 24 Hr Calc 09/27/16 09/27/16 09/27/16 07:06 07:06 07:06 WBC 12.3 H 12.2 H RBC 3.36 L 3.34 L Hgb 10.0 L 10.0 L D Hct 30.5 L 30.2 L MCV 90.7 90.6 MCH 29.7 29.9 MCHC 32.7 L 33.0 RDW 16.4 H 16.4 H Plt Count 191 190 MPV 8.6 8.7 Neut % (Auto) 80.0 H 79.9 H Lymph % (Auto) 14.6 L 14.7 L Dodge % (Auto) 3.8 3.7 Eos % (Auto) 1.1 1.2 Baso % (Auto) 0.5 0.5 Neut # 9.8 H 9.7 H Lymph # 1.8 1.8 Dodge # 0.5 0.4 Eos # 0.1 0.1 Baso # 0.1 0.1 Sodium 140 Potassium 3.5 L Chloride 100 Carbon Dioxide 28 Anion Gap 16 BUN 36 H Creatinine 1.6 H Est GFR ( Amer) 38 Est GFR (Non-Af Amer) 31 POC Glucose (mg/dL) Random Glucose 125 H Calcium 8.7 Phosphorus 4.4 Magnesium 2.2 Total Bilirubin 0.8 AST 26 ALT 21 Alkaline Phosphatase 39 Total Protein 6.2 L Albumin 3.8 Globulin 2.4 Albumin/Globulin Ratio 1.6 RBC Folate Urine Collection Time Urine Total Volume Ur Protein 24 Hr Calc
--- NOTE | 2016-09-27 10:55 | CP.PCM.PN ---
Subjective - Date & Time of Evaluation Date of Evaluation: 09/27/16 Time of Evaluation: 10:52 - Subjective Subjective: Cardiology Progress Note for Dr. Zelaya Pt seen and examined at bedside. Pt doing well with no acute events overnight as per nursing. Pt hg stable at this time after receiving multiple transfusions during current stay. Denies CP, SOB, N/V/D, dizziness, weakness. Objective - Vital Signs/Intake and Output Vital Signs (last 24 hours): Temp Pulse Resp BP Pulse Ox 97.2 F L 63 18 121/67 98 09/27/16 07:30 09/27/16 07:30 09/27/16 07:30 09/27/16 07:30 09/27/16 07:30 Intake and Output: 09/27/16 09/27/16 06:59 18:59 Intake Total 1250 Balance 1250 - Medications Medications: Current Medications Acetaminophen (Tylenol 325mg Tab) 650 mg PO Q6 PRN PRN Reason: Headache Last Admin: 09/27/16 05:57 Dose: 650 mg Amiodarone HCl (Cordarone) 200 mg PO DAILY [facility] Last Admin: 09/27/16 09:22 Dose: 200 mg Budesonide (Pulmicort Respules) 0.25 mg INH RQ12 [facility] Last Admin: 09/27/16 08:27 Dose: 0.25 mg Diltiazem HCl (Cardizem Cd) 240 mg PO DAILY [facility] Last Admin: 09/27/16 09:22 Dose: 240 mg Ferric Sodium Gluconate Complex (Ferrlecit) 125 mg IVPB DAILY [facility] Stop: 10/04/16 11:16 Last Admin: 09/27/16 09:23 Dose: 125 mg Insulin Aspart (Novolog) 0 unit SC ACHS [facility] PRN Reason: Protocol Last Admin: 09/27/16 08:22 Dose: Not Given Levothyroxine Sodium (Synthroid) 75 mcg PO DAILY@0630 [facility] Last Admin: 09/27/16 05:57 Dose: 75 mcg Pantoprazole Sodium (Protonix Ec Tab) 20 mg PO DAILY [facility] Last Admin: 09/27/16 09:22 Dose: 20 mg - Labs Labs: 09/27/16 07:06 09/27/16 07:06 PT 11.5 SECONDS (9.7-12.2) 09/26/16 03:19 INR 1.0 09/26/16 03:19 APTT 31 SECONDS (21-34) 09/26/16 03:19 - Constitutional Appears: Well, No Acute Distress - Head Exam Head Exam: ATRAUMATIC, NORMAL INSPECTION, NORMOCEPHALIC - Respiratory Exam Respiratory Exam: Clear to Ausculation Bilateral, NORMAL BREATHING PATTERN - Cardiovascular Exam Cardiovascular Exam: RRR, +S1, +S2 - GI/Abdominal Exam GI & Abdominal Exam: Soft, Normal Bowel Sounds. absent: Tenderness - Extremities Exam Extremities Exam: Normal Inspection. absent: Calf Tenderness - Skin Skin Exam: Intact, Normal Color, Warm Assessment and Plan (1) History of atrial fibrillation Assessment & Plan: Rate and rhythm controlled at this time Continue amiodarone and cardizem Status: Acute
--- NOTE | 2016-09-27 11:44 | CP.PCM.PN ---
Subjective - Date & Time of Evaluation Date of Evaluation: 09/27/16 Time of Evaluation: 11:40 - Subjective Subjective: CC: Follow up GI Bleed + Neck tightness sensation. Had dyspnea last night. Black stool discussed with RN. Hgb stable. EGD- negative for source of bleeding. Discussed with Dr Zelaya Objective - Vital Signs/Intake and Output Vital Signs (last 24 hours): Temp Pulse Resp BP Pulse Ox 97.2 F L 63 18 121/67 98 09/27/16 07:30 09/27/16 07:30 09/27/16 07:30 09/27/16 07:30 09/27/16 07:30 Intake and Output: 09/27/16 09/27/16 06:59 18:59 Intake Total 1250 Balance 1250 - Medications Medications: Current Medications Acetaminophen (Tylenol 325mg Tab) 650 mg PO Q6 PRN PRN Reason: Headache Last Admin: 09/27/16 05:57 Dose: 650 mg Amiodarone HCl (Cordarone) 200 mg PO DAILY [facility] Last Admin: 09/27/16 09:22 Dose: 200 mg Budesonide (Pulmicort Respules) 0.25 mg INH RQ12 [facility] Last Admin: 09/27/16 08:27 Dose: 0.25 mg Diltiazem HCl (Cardizem Cd) 240 mg PO DAILY [facility] Last Admin: 09/27/16 09:22 Dose: 240 mg Ferric Sodium Gluconate Complex (Ferrlecit) 125 mg IVPB DAILY [facility] Stop: 10/04/16 11:16 Last Admin: 09/27/16 09:23 Dose: 125 mg Insulin Aspart (Novolog) 0 unit SC ACHS [facility] PRN Reason: Protocol Last Admin: 09/27/16 08:22 Dose: Not Given Levothyroxine Sodium (Synthroid) 75 mcg PO DAILY@0630 [facility] Last Admin: 09/27/16 05:57 Dose: 75 mcg Pantoprazole Sodium (Protonix Ec Tab) 20 mg PO DAILY [facility] Last Admin: 09/27/16 09:22 Dose: 20 mg - Labs Labs: 09/27/16 07:06 09/27/16 07:06 PT 11.5 SECONDS (9.7-12.2) 09/26/16 03:19 INR 1.0 09/26/16 03:19 APTT 31 SECONDS (21-34) 09/26/16 03:19 - Constitutional Appears: Chronically Ill - Head Exam Head Exam: NORMOCEPHALIC (Pale conjunctivae) - Respiratory Exam Respiratory Exam: NORMAL BREATHING PATTERN - Cardiovascular Exam Cardiovascular Exam: REGULAR RHYTHM - GI/Abdominal Exam GI & Abdominal Exam: Soft. absent: Tenderness Assessment and Plan (1) Anemia Assessment & Plan: Due to blood losses likely from obscure SB source. Hgb stable post transfusion. Rec: No anticoagulants. Discussed with interventional endoscopist who will review capsule endoscopy and decide on enteroscopy to search for SB source of bleeding. Status: Acute (2) Atrial fibrillation with controlled ventricular response Assessment & Plan: Follow cardiology recommendations Status: Acute
--- NOTE | 2016-09-27 13:11 | CP.PCM.PN ---
Subjective - Date & Time of Evaluation Date of Evaluation: 09/27/16 Time of Evaluation: 13:09 - Subjective Subjective: s/p blood transfusions; Hg incereased to 10.0 Creat stable at 1.6; renal US consistent with CKD Degree of anemia c/w Fe deficiency; partially from CKD possibly Feels better- no n, v, SOB, diarrhea, CPs Objective - Vital Signs/Intake and Output Vital Signs (last 24 hours): Temp Pulse Resp BP Pulse Ox 97.2 F L 63 18 121/67 98 09/27/16 07:30 09/27/16 07:30 09/27/16 07:30 09/27/16 07:30 09/27/16 07:30 Intake and Output: 09/27/16 09/27/16 06:59 18:59 Intake Total 1250 Balance 1250 - Medications Medications: Current Medications Acetaminophen (Tylenol 325mg Tab) 650 mg PO Q6 PRN PRN Reason: Headache Last Admin: 09/27/16 05:57 Dose: 650 mg Amiodarone HCl (Cordarone) 200 mg PO DAILY [facility] Last Admin: 09/27/16 09:22 Dose: 200 mg Budesonide (Pulmicort Respules) 0.25 mg INH RQ12 [facility] Last Admin: 09/27/16 08:27 Dose: 0.25 mg Diltiazem HCl (Cardizem Cd) 240 mg PO DAILY [facility] Last Admin: 09/27/16 09:22 Dose: 240 mg Docusate Sodium (Colace) 100 mg PO DAILY [facility] Ferric Sodium Gluconate Complex (Ferrlecit) 125 mg IVPB DAILY [facility] Stop: 10/04/16 11:16 Last Admin: 09/27/16 09:23 Dose: 125 mg Insulin Aspart (Novolog) 0 unit SC ACHS [facility] PRN Reason: Protocol Last Admin: 09/27/16 12:28 Dose: Not Given Levothyroxine Sodium (Synthroid) 75 mcg PO DAILY@0630 [facility] Last Admin: 09/27/16 05:57 Dose: 75 mcg Pantoprazole Sodium (Protonix Ec Tab) 20 mg PO DAILY [facility] Last Admin: 09/27/16 09:22 Dose: 20 mg Potassium Chloride (K-Dur 20 Meq Er Tab) 20 meq PO ONCE ONE Stop: 09/28/16 11:48 - Labs Labs: 09/27/16 07:06 09/27/16 07:06 PT 11.5 SECONDS (9.7-12.2) 09/26/16 03:19 INR 1.0 09/26/16 03:19 APTT 31 SECONDS (21-34) 09/26/16 03:19 - Constitutional Appears: No Acute Distress, Chronically Ill - Head Exam Head Exam: ATRAUMATIC, NORMAL INSPECTION - Eye Exam Eye Exam: EOMI, Normal appearance - Neck Exam Neck Exam: Normal Inspection. absent: Tenderness - Respiratory Exam Respiratory Exam: Clear to Ausculation Bilateral, NORMAL BREATHING PATTERN - Cardiovascular Exam Cardiovascular Exam: REGULAR RHYTHM, +S1 - GI/Abdominal Exam GI & Abdominal Exam: Distended, Soft - Extremities Exam Extremities Exam: Normal Inspection. absent: Tenderness - Neurological Exam Neurological Exam: Alert, CN II-XII Intact - Skin Skin Exam: Dry, Warm Assessment and Plan (1) CKD (chronic kidney disease) stage 3, GFR 30-59 ml/min Status: Acute (2) Anemia of chronic disease Status: Acute (3) HTN (hypertension) Status: Acute (4) Atrial fibrillation with controlled ventricular response Status: Acute - Assessment and Plan (Free Text) Plan: IV iron eventually start ESAs
[2016-09-27] MEDS: EPOETIN ALFA 10,000 UNIT/ML ML SC SCH (14:18)
--- NOTE | 2016-09-27 17:34 | CP.PCM.PN ---
<Kehinde Stevens - Last Filed: 09/27/16 17:49> Subjective - Date & Time of Evaluation Date of Evaluation: 09/27/16 Time of Evaluation: 07:23 - Subjective Subjective: PGY 1 Medicine Note- Dr. Muñoz's service Pt seen and examined in no apparent acute distress. Patient had an episode of shortness of breath overnight for which she was administered humidified oxygen through a nasal canula. She is s/p 5 blood transfusions . Patient reported a headache earlier. She denies fevers, chills, nausea, vomiting, diarrhea, constipation, headaches, chest pain or palpitations at this time. Objective - Vital Signs/Intake and Output Vital Signs (last 24 hours): Temp Pulse Resp BP Pulse Ox 98.1 F 61 20 132/70 95 09/27/16 15:31 09/27/16 16:00 09/27/16 15:31 09/27/16 15:31 09/27/16 15:31 Intake and Output: 09/27/16 09/27/16 06:59 18:59 Intake Total 1250 Balance 1250 - Medications Medications: Current Medications Acetaminophen (Tylenol 325mg Tab) 650 mg PO Q6 PRN PRN Reason: Headache Last Admin: 09/27/16 05:57 Dose: 650 mg Amiodarone HCl (Cordarone) 200 mg PO DAILY [facility] Last Admin: 09/27/16 09:22 Dose: 200 mg Budesonide (Pulmicort Respules) 0.25 mg INH RQ12 [facility] Last Admin: 09/27/16 08:27 Dose: 0.25 mg Diltiazem HCl (Cardizem Cd) 240 mg PO DAILY [facility] Last Admin: 09/27/16 09:22 Dose: 240 mg Docusate Sodium (Colace) 100 mg PO DAILY [facility] Last Admin: 09/27/16 14:14 Dose: 100 mg Epoetin Eddie (Procrit) 10,000 unit SC MWF [facility] Last Admin: 09/27/16 14:18 Dose: 10,000 unit Ferric Sodium Gluconate Complex (Ferrlecit) 125 mg IVPB DAILY [facility] Stop: 10/04/16 11:16 Last Admin: 09/27/16 09:23 Dose: 125 mg Insulin Aspart (Novolog) 0 unit SC ACHS [facility] PRN Reason: Protocol Last Admin: 09/27/16 17:15 Dose: Not Given Levothyroxine Sodium (Synthroid) 75 mcg PO DAILY@0630 [facility] Last Admin: 09/27/16 05:57 Dose: 75 mcg Pantoprazole Sodium (Protonix Ec Tab) 20 mg PO DAILY [facility] Last Admin: 09/27/16 09:22 Dose: 20 mg - Labs Labs: 09/27/16 07:06 09/27/16 07:06 PT 11.5 SECONDS (9.7-12.2) 09/26/16 03:19 INR 1.0 09/26/16 03:19 APTT 31 SECONDS (21-34) 09/26/16 03:19 - Constitutional Appears: Non-toxic, No Acute Distress - Head Exam Head Exam: ATRAUMATIC, NORMAL INSPECTION, NORMOCEPHALIC - Eye Exam Eye Exam: EOMI, Normal appearance, PERRL Pupil Exam: NORMAL ACCOMODATION - ENT Exam ENT Exam: Mucous Membranes Moist - Neck Exam Neck Exam: Full ROM - Respiratory Exam Respiratory Exam: NORMAL BREATHING PATTERN. absent: Wheezes - Cardiovascular Exam Cardiovascular Exam: REGULAR RHYTHM, +S1, +S2 - GI/Abdominal Exam GI & Abdominal Exam: Soft, Normal Bowel Sounds - Extremities Exam Extremities Exam: Full ROM, Pedal Edema (trace b/l) - Back Exam Back Exam: Full ROM - Neurological Exam Neurological Exam: Alert, Awake, CN II-XII Intact, Oriented x3 - Psychiatric Exam Psychiatric exam: Normal Affect, Normal Mood - Skin Skin Exam: Dry, Intact, Warm Assessment and Plan (1) Symptomatic anemia Status: Acute (2) Acute kidney injury Status: Acute (3) History of atrial fibrillation Status: Acute (4) Diabetes Status: Acute (5) HTN (hypertension) Status: Acute (6) History of gastroesophageal reflux (GERD) Status: Acute (7) Prophylactic measure Status: Acute - Assessment and Plan (Free Text) Assessment: Symptomatic anemia Assessment and Plan: s/p 5 units PRBC. F/U Hgb above 12 Monitor for signs of fluid overload. AM CXR: mild venous congestive changes noted. will monitor for clinical signs of fluid overload. At this point, not clinically appreciated. Patient with hx of 2 weeks of dark stools: Stool occult positive: Rule out GI bleed F/U GI (Dr. Reyes) recommendations: Considerations being made for enteroscopy. Will F/U EGD 09/26: Z line regular, LA grade A esophagitis, small hiatal hernia. Reccs to resume diabetic diet. Considerations for full enteroscopy. Anemia can be further exacerbated by decreased kidney function. Cr and BUN elevated Nephrology recommendations- IV iron , quantify proteinuria; check SPEP. . F/U Status: Acute Acute kidney injury Assessment and Plan: BUN and Cr elevated as noted above Renal US- b/l cortical thinning, no calculus appreciated or hydronephrosis, b/l renal/ parapelvic cysts. refer to complete report. F/U 24 hr Urine collection F/U Nephro ( Dr. Bill group recommendations) as noted above Status: Acute History of atrial fibrillation Assessment and Plan: On Amiodarone and Cardizem On telemetry monitoring: Rate and rhythm controlled F/U Cardiology ( Dr. Zelaya) recommendations Prior Echo from 2016 with EF 83%, LV normal size, borderline concentric left ventricular hypertrophy with normal LVEF, mitral valve leaflets are thickened and calcified, moderate to severe pulm HTN noted. Status: Acute Diabetes Assessment and Plan: Accuchecks Medium dose ISS Hold Glipizide at this time. Status: Acute Hypothyroidism Assessment and Plan: Abnormal thyroid studies Begin Levothyroxine 75 mcg daily Status: Acute HTN (hypertension) Assessment and Plan: Normotensive at this time. Cont to monitor. Status: Acute History of gastroesophageal reflux (GERD) Assessment and Plan: Protonix 20 mg PO daily Status: Acute Prophylactic measure Assessment and Plan: Chemical anticoagulation contraindicated due to suspected GI bleed as well as low Hgb SCDs contraindicated due to b/l LE swelling PPI 20 mg daily Fall risk protocol Status: Acute <José Antonio Muñoz H - Last Filed: 09/28/16 07:22> Objective - Vital Signs/Intake and Output Vital Signs (last 24 hours): Temp Pulse Resp BP Pulse Ox 98 F 57 L 20 106/62 99 09/27/16 23:05 09/28/16 00:09 09/27/16 23:05 09/27/16 23:05 09/27/16 23:05 - Medications Medications: Current Medications Acetaminophen (Tylenol 325mg Tab) 650 mg PO Q6 PRN PRN Reason: Headache Last Admin: 09/27/16 05:57 Dose: 650 mg Amiodarone HCl (Cordarone) 200 mg PO DAILY [facility] Last Admin: 09/27/16 09:22 Dose: 200 mg Budesonide (Pulmicort Respules) 0.25 mg INH RQ12 [facility] Last Admin: 09/27/16 19:51 Dose: 0.25 mg Diltiazem HCl (Cardizem Cd) 240 mg PO DAILY [facility] Last Admin: 09/27/16 09:22 Dose: 240 mg Docusate Sodium (Colace) 100 mg PO DAILY [facility] Last Admin: 09/27/16 14:14 Dose: 100 mg Epoetin Eddie (Procrit) 10,000 unit SC MWF [facility] Last Admin: 09/27/16 14:18 Dose: 10,000 unit Ferric Sodium Gluconate Complex (Ferrlecit) 125 mg IVPB DAILY [facility] Stop: 10/04/16 11:16 Last Admin: 09/27/16 09:23 Dose: 125 mg Insulin Aspart (Novolog) 0 unit SC ACHS [facility] PRN Reason: Protocol Last Admin: 09/27/16 21:21 Dose: Not Given Levothyroxine Sodium (Synthroid) 75 mcg PO DAILY@0630 [facility] Last Admin: 09/28/16 06:00 Dose: 75 mcg Pantoprazole Sodium (Protonix Ec Tab) 20 mg PO DAILY [facility] Last Admin: 09/27/16 09:22 Dose: 20 mg - Labs Labs: 09/27/16 07:06 09/27/16 07:06 PT 11.5 SECONDS (9.7-12.2) 09/26/16 03:19 INR 1.0 09/26/16 03:19 APTT 31 SECONDS (21-34) 09/26/16 03:19 Attending/Attestation - Attestation I have personally seen and examined this patient.: Yes I have fully participated in the care of the patient.: Yes I have reviewed all pertinent clinical information, including history, physical exam and plan: Yes Notes (Text): Medical attending: Patient was seen and examined by me, agree with the above note by the resident. Hgb is higher now, 10. She previously completed EGD however will probably have to undergo further GI studies. Per GI the concern is the bleeding maybe deeper in the GI tract than the EGD is able to reach and she would need enteroscopy to further assess for bleeding. With reguards to her atrial fibrillation it is controlled with digoxin. Avoiding anticoagulation [facility] seems to be improving José Antonio Muñoz
[2016-09-28] MEDS: Levothyroxine 75 MCG TAB PO SCH (06:00)
[2016-09-28 08:02] LABS: BASO # 0.1 K/uL (0.0-0.2); BASO % 0.7 % (0.0-2.0); EOS # 0.1 K/uL (0.0-0.7); EOS % 1.2 % (0.0-4.0); HEMATOCRIT 29.4 % (34.0-47.0); LYMPH # 2.1 K/uL (1.0-4.3); LYMPH % 18.1 % (20.0-40.0); MEAN CELL VOLUME 91.8 fL (81.0-99.0); MEAN CORPUSCULAR HEMOGLOBIN 30.2 pg (27.0-31.0); MEAN CORPUSCULAR HGB CONC 32.9 g/dL (33.0-37.0); MEAN PLATELET VOLUME 8.6 fL (7.2-11.7); MONO # 0.5 K/uL (0.0-0.8); MONO % 4.3 % (0.0-10.0); NRBC % 0.2 % (0.0-2.0); RED CELL DISTRIBUTION WIDTH 16.6 % (11.5-14.5); WHITE BLOOD COUNT 11.5 K/uL (4.8-10.8)
[2016-09-28] MEDS: Budesonide 0.25 mg/2 ml Inhal Susp UD INH SCH ×2 (08:22→20:05)
[2016-09-28 08:35] LABS: POTASSIUM 4.2 mmol/L (3.6-5.2)
[2016-09-28 08:37] LABS: ALB/GLOB RATIO 1.4 (1.0-2.1); BILIRUBIN,TOTAL 0.5 mg/dL (0.2-1.3); PHOSPHOROUS 4.5 mg/dL (2.5-4.5); TOTAL PROTEIN 6.3 g/dL (6.3-8.3)
[2016-09-28 08:38] LABS: CALCIUM 8.6 mg/dl (8.6-10.4); MAGNESIUM 2.3 mg/dL (1.6-2.3)
--- NOTE | 2016-09-28 08:53 | CP.PCM.PN ---
Subjective - Date & Time of Evaluation Date of Evaluation: 09/28/16 Time of Evaluation: 08:51 - Subjective Subjective: Cardiology Progress Note for Dr. Zelaya Pt seen and examined at bedside. Pt doing well overnight, with no acute events as per nursing. Pt states she does have a small amount of bright red blood per rectum as seen on toilet paper after having a bowel movement. Pt denies CP, SOB , N/V/D, fatigue, dizziness. Objective - Vital Signs/Intake and Output Vital Signs (last 24 hours): Temp Pulse Resp BP Pulse Ox 98 F 57 L 20 106/62 99 09/27/16 23:05 09/28/16 00:09 09/27/16 23:05 09/27/16 23:05 09/27/16 23:05 - Medications Medications: Current Medications Acetaminophen (Tylenol 325mg Tab) 650 mg PO Q6 PRN PRN Reason: Headache Last Admin: 09/27/16 05:57 Dose: 650 mg Amiodarone HCl (Cordarone) 200 mg PO DAILY [facility] Last Admin: 09/27/16 09:22 Dose: 200 mg Budesonide (Pulmicort Respules) 0.25 mg INH RQ12 [facility] Last Admin: 09/28/16 08:22 Dose: 0.25 mg Diltiazem HCl (Cardizem Cd) 240 mg PO DAILY [facility] Last Admin: 09/27/16 09:22 Dose: 240 mg Docusate Sodium (Colace) 100 mg PO DAILY [facility] Last Admin: 09/27/16 14:14 Dose: 100 mg Epoetin Eddie (Procrit) 10,000 unit SC MWF [facility] Last Admin: 09/27/16 14:18 Dose: 10,000 unit Ferric Sodium Gluconate Complex (Ferrlecit) 125 mg IVPB DAILY [facility] Stop: 10/04/16 11:16 Last Admin: 09/27/16 09:23 Dose: 125 mg Insulin Aspart (Novolog) 0 unit SC ACHS [facility] PRN Reason: Protocol Last Admin: 09/27/16 21:21 Dose: Not Given Levothyroxine Sodium (Synthroid) 75 mcg PO DAILY@0630 [facility] Last Admin: 09/28/16 06:00 Dose: 75 mcg Pantoprazole Sodium (Protonix Ec Tab) 20 mg PO DAILY [facility] Last Admin: 09/27/16 09:22 Dose: 20 mg - Labs Labs: 09/28/16 07:37 09/28/16 07:37 PT 11.5 SECONDS (9.7-12.2) 09/26/16 03:19 INR 1.0 09/26/16 03:19 APTT 31 SECONDS (21-34) 09/26/16 03:19 - Constitutional Appears: Well, No Acute Distress - Head Exam Head Exam: ATRAUMATIC, NORMAL INSPECTION, NORMOCEPHALIC - Respiratory Exam Respiratory Exam: Clear to Ausculation Bilateral, NORMAL BREATHING PATTERN - Cardiovascular Exam Cardiovascular Exam: RRR, +S1, +S2 - GI/Abdominal Exam GI & Abdominal Exam: Soft, Normal Bowel Sounds. absent: Tenderness - Extremities Exam Extremities Exam: Normal Inspection. absent: Calf Tenderness - Neurological Exam Neurological Exam: Alert, Awake, Oriented x3 - Skin Skin Exam: Intact, Normal Color, Warm Assessment and Plan (1) History of atrial fibrillation Assessment & Plan: Rate and rhythm controlled at this time Continue Amiodarone and Cardizem No anticoagulation at this time as source of bleed is unclear Will continue to monitor closely Status: Acute
[2016-09-28] MEDS: Pantoprazole 20 mg EC Tab PO SCH (09:13)
[2016-09-28] MEDS: diltiaZEM 240 mg/24 Hours CD Cap PO SCH (09:14)
[2016-09-28] MEDS: Ferric Sodium Gluconat Complex 62.5 mg/5 ml Vial IVPB SCH (09:14)
[2016-09-28 09:19] LABS: ABNORMAL PROTEIN BAND 1 0.14 g/dL (None Detected); BETA 1 GLOBULIN 0.4 g/dL (0.4-0.6); BETA 2 GLOBULIN 0.2 g/dL (0.2-0.5); GAMMA GLOBULIN 0.6 g/dL (0.8-1.7)
--- NOTE | 2016-09-28 10:03 | CP.PCM.PN ---
<Kehinde Stevens - Last Filed: 09/28/16 13:39> Subjective - Date & Time of Evaluation Date of Evaluation: 09/28/16 Time of Evaluation: 07:26 - Subjective Subjective: PGY 1 Medicine Note- Dr. Muñoz's service Pt seen and examined in no acute distress. Patient states that she feels better today. She stated tht the neck discomfort that she was experiencing yesterday has now resolved. She states that she noticed some bright red blood on the toilet paper after a bowel movement yesterday. She complains of some back pain and would like a cream applied. She states that she was given a cream during her last admission but unsure of the name. She denies subjective fevers or chills, shortness of breath, nausea, vomiting, diarrhea, constipation, chest pain, palpitations, cough at this time. Objective - Vital Signs/Intake and Output Vital Signs (last 24 hours): Temp Pulse Resp BP Pulse Ox 97.5 F L 62 20 115/58 L 20 L 09/28/16 09:07 09/28/16 09:07 09/28/16 09:07 09/28/16 09:07 09/28/16 09:07 - Medications Medications: Current Medications Acetaminophen (Tylenol 325mg Tab) 650 mg PO Q6 PRN PRN Reason: Headache Last Admin: 09/27/16 05:57 Dose: 650 mg Amiodarone HCl (Cordarone) 200 mg PO DAILY [facility] Last Admin: 09/27/16 09:22 Dose: 200 mg Budesonide (Pulmicort Respules) 0.25 mg INH RQ12 [facility] Last Admin: 09/28/16 08:22 Dose: 0.25 mg Diltiazem HCl (Cardizem Cd) 240 mg PO DAILY [facility] Last Admin: 09/27/16 09:22 Dose: 240 mg Docusate Sodium (Colace) 100 mg PO DAILY [facility] Last Admin: 09/27/16 14:14 Dose: 100 mg Epoetin Eddie (Procrit) 10,000 unit SC MWF [facility] Last Admin: 09/27/16 14:18 Dose: 10,000 unit Ferric Sodium Gluconate Complex (Ferrlecit) 125 mg IVPB DAILY [facility] Stop: 10/04/16 11:16 Last Admin: 09/27/16 09:23 Dose: 125 mg Insulin Aspart (Novolog) 0 unit SC ACHS [facility] PRN Reason: Protocol Last Admin: 09/27/16 21:21 Dose: Not Given Levothyroxine Sodium (Synthroid) 75 mcg PO DAILY@0630 [facility] Last Admin: 09/28/16 06:00 Dose: 75 mcg Pantoprazole Sodium (Protonix Ec Tab) 20 mg PO DAILY [facility] Last Admin: 09/27/16 09:22 Dose: 20 mg - Labs Labs: 09/28/16 07:37 09/28/16 07:37 PT 11.5 SECONDS (9.7-12.2) 09/26/16 03:19 INR 1.0 09/26/16 03:19 APTT 31 SECONDS (21-34) 09/26/16 03:19 - Constitutional Appears: Non-toxic, No Acute Distress - Head Exam Head Exam: ATRAUMATIC, NORMAL INSPECTION, NORMOCEPHALIC - Eye Exam Eye Exam: EOMI, Normal appearance, PERRL Pupil Exam: NORMAL ACCOMODATION, PERRL - ENT Exam ENT Exam: Mucous Membranes Moist - Neck Exam Neck Exam: Full ROM - Respiratory Exam Respiratory Exam: Clear to Ausculation Bilateral, NORMAL BREATHING PATTERN. absent: Wheezes - Cardiovascular Exam Cardiovascular Exam: REGULAR RHYTHM, +S1, +S2 - GI/Abdominal Exam GI & Abdominal Exam: Soft, Normal Bowel Sounds - Extremities Exam Extremities Exam: Full ROM, Normal Capillary Refill, Pedal Edema (trace) - Back Exam Back Exam: Full ROM - Neurological Exam Neurological Exam: Alert, Awake, CN II-XII Intact, Oriented x3 - Psychiatric Exam Psychiatric exam: Normal Affect, Normal Mood - Skin Skin Exam: Dry, Intact, Normal Color, Warm Assessment and Plan (1) Symptomatic anemia Status: Acute (2) Acute kidney injury Status: Acute (3) History of atrial fibrillation Status: Acute (4) Diabetes Status: Acute (5) HTN (hypertension) Status: Acute (6) History of gastroesophageal reflux (GERD) Status: Acute (7) Prophylactic measure Status: Acute - Assessment and Plan (Free Text) Assessment: Symptomatic anemia Assessment and Plan: s/p 5 units PRBC. Hgb stable Monitor for signs of fluid overload. Patient with hx of 2 weeks of dark stools; Still with some scant bleeding per rectum. Stool occult positive:Continue to monitor BMs. F/U GI (Dr. Reyes) recommendations: On schedule for enteroscopy tmrw after discussing case with Dr. Reginald Nails ( GI fellow) Will F/U EGD 09/26: Z line regular, LA grade A esophagitis, small hiatal hernia. Anemia can be further exacerbated by decreased kidney function. Cr and BUN elevated Status: Acute Acute kidney injury Assessment and Plan: BUN and Cr trending down Renal US- b/l cortical thinning, no calculus appreciated or hydronephrosis, b/l renal/ parapelvic cysts. refer to complete report. F/U 24 hr Urine collection F/U Nephro ( Dr. Bill group recommendations) as noted above Nephrology recommendations- IV iron , Protein studies resulted; SPEP- M spike noted may require further analysis. Status: Acute History of atrial fibrillation Assessment and Plan: On Amiodarone and Cardizem On telemetry monitoring: Rate and rhythm controlled F/U Cardiology ( Dr. Zelaya) recommendations Prior Echo from 2016 with EF 83%, LV normal size, borderline concentric left ventricular hypertrophy with normal LVEF, mitral valve leaflets are thickened and calcified, moderate to severe pulm HTN noted. Status: Acute Diabetes Assessment and Plan: Accuchecks Medium dose ISS Hold Glipizide at this time. Status: Acute Hypothyroidism Assessment and Plan: Abnormal thyroid studies Begin Levothyroxine 75 mcg daily Status: Acute HTN (hypertension) Assessment and Plan: Normotensive at this time. Cont to monitor. Status: Acute Back Pain Assessment and Plan: Lidocaine patch given x1 Patient has received capsaicin cream in the past during June admission. Will consider use if Lidocaine patch does not provide relief. Status: Acute History of gastroesophageal reflux (GERD) Assessment and Plan: Protonix 20 mg PO daily Status: Acute Prophylactic measure Assessment and Plan: Chemical anticoagulation contraindicated due to suspected GI bleed SCDs contraindicated due to b/l LE swelling PPI 20 mg daily Fall risk protocol Status: Acute <José Antonio Muñoz - Last Filed: 09/28/16 15:17> Objective - Vital Signs/Intake and Output Vital Signs (last 24 hours): Temp Pulse Resp BP Pulse Ox 97.5 F L 62 20 115/58 L 20 L 09/28/16 09:07 09/28/16 09:07 09/28/16 09:07 09/28/16 09:07 09/28/16 09:07 - Medications Medications: Current Medications Acetaminophen (Tylenol 325mg Tab) 650 mg PO Q6 PRN PRN Reason: Headache Last Admin: 09/27/16 05:57 Dose: 650 mg Amiodarone HCl (Cordarone) 200 mg PO DAILY [facility] Last Admin: 09/28/16 09:14 Dose: 200 mg Budesonide (Pulmicort Respules) 0.25 mg INH RQ12 [facility] Last Admin: 09/28/16 08:22 Dose: 0.25 mg Capsaicin (Trixaicin) 0 gm TOP TID PRN PRN Reason: Pain, moderate (4-7) Diltiazem HCl (Cardizem Cd) 240 mg PO DAILY [facility] Last Admin: 09/28/16 09:14 Dose: 240 mg Docusate Sodium (Colace) 100 mg PO DAILY [facility] Last Admin: 09/28/16 09:14 Dose: 100 mg Epoetin Eddie (Procrit) 10,000 unit SC MWF [facility] Last Admin: 09/27/16 14:18 Dose: 10,000 unit Ferric Sodium Gluconate Complex (Ferrlecit) 125 mg IVPB DAILY [facility] Stop: 10/04/16 11:16 Last Admin: 09/28/16 09:14 Dose: 125 mg Insulin Aspart (Novolog) 0 unit SC ACHS [facility] PRN Reason: Protocol Last Admin: 09/28/16 11:17 Dose: Not Given Lactulose (Enulose) 20 gm PO HS [facility] Levothyroxine Sodium (Synthroid) 75 mcg PO DAILY@0630 [facility] Last Admin: 09/28/16 06:00 Dose: 75 mcg Pantoprazole Sodium (Protonix Ec Tab) 20 mg PO DAILY [facility] Last Admin: 09/28/16 09:13 Dose: 20 mg - Labs Labs: 09/28/16 07:37 09/28/16 07:37 PT 11.5 SECONDS (9.7-12.2) 09/26/16 03:19 INR 1.0 09/26/16 03:19 APTT 31 SECONDS (21-34) 09/26/16 03:19
--- NOTE | 2016-09-28 10:11 | CP.PCM.PN ---
Subjective - Date & Time of Evaluation Date of Evaluation: 09/28/16 Time of Evaluation: 10:08 - Subjective Subjective: F/U anemia Denies R, melena, abdom pain, CP, SOB, fever, chills, INGRAM. Has constipation x 3 days Objective - Vital Signs/Intake and Output Vital Signs (last 24 hours): Temp Pulse Resp BP Pulse Ox 97.5 F L 62 20 115/58 L 20 L 09/28/16 09:07 09/28/16 09:07 09/28/16 09:07 09/28/16 09:07 09/28/16 09:07 - Medications Medications: Current Medications Acetaminophen (Tylenol 325mg Tab) 650 mg PO Q6 PRN PRN Reason: Headache Last Admin: 09/27/16 05:57 Dose: 650 mg Amiodarone HCl (Cordarone) 200 mg PO DAILY [facility] Last Admin: 09/27/16 09:22 Dose: 200 mg Budesonide (Pulmicort Respules) 0.25 mg INH RQ12 [facility] Last Admin: 09/28/16 08:22 Dose: 0.25 mg Diltiazem HCl (Cardizem Cd) 240 mg PO DAILY [facility] Last Admin: 09/27/16 09:22 Dose: 240 mg Docusate Sodium (Colace) 100 mg PO DAILY [facility] Last Admin: 09/27/16 14:14 Dose: 100 mg Epoetin Eddie (Procrit) 10,000 unit SC MWF [facility] Last Admin: 09/27/16 14:18 Dose: 10,000 unit Ferric Sodium Gluconate Complex (Ferrlecit) 125 mg IVPB DAILY [facility] Stop: 10/04/16 11:16 Last Admin: 09/27/16 09:23 Dose: 125 mg Insulin Aspart (Novolog) 0 unit SC ACHS [facility] PRN Reason: Protocol Last Admin: 09/27/16 21:21 Dose: Not Given Levothyroxine Sodium (Synthroid) 75 mcg PO DAILY@0630 [facility] Last Admin: 09/28/16 06:00 Dose: 75 mcg Pantoprazole Sodium (Protonix Ec Tab) 20 mg PO DAILY [facility] Last Admin: 09/27/16 09:22 Dose: 20 mg - Labs Labs: 09/28/16 07:37 09/28/16 07:37 PT 11.5 SECONDS (9.7-12.2) 09/26/16 03:19 INR 1.0 09/26/16 03:19 APTT 31 SECONDS (21-34) 09/26/16 03:19 - Constitutional Appears: Well - Respiratory Exam Respiratory Exam: Clear to Ausculation Bilateral - Cardiovascular Exam Cardiovascular Exam: RRR - GI/Abdominal Exam GI & Abdominal Exam: Soft, Normal Bowel Sounds. absent: Tenderness, Mass - Extremities Exam Extremities Exam: absent: Calf Tenderness - Neurological Exam Neurological Exam: Alert, Oriented x3 Assessment and Plan - Assessment and Plan (Free Text) Assessment: Anemia_ unclear source. Colonosocpy done recently. Repeat EGD shows no lesions and no bleed. consider renal. Consider more distal small bowel. On schedule for enteroscopy, but capsule study was negative. AFIB: CONSTIPATION: colace.
--- NOTE | 2016-09-28 10:27 | CP.PCM.PN ---
Subjective - Date & Time of Evaluation Date of Evaluation: 09/28/16 Time of Evaluation: 10:23 - Subjective Subjective: Receiving IV Fe Creat stable at 1.5 Feels weak- but improved No new c/o n,v,diarrhea,f,c,dysuria To treat constipation as per GI Has non-nephrotic proteinuria To check for paraproteinemias Objective - Vital Signs/Intake and Output Vital Signs (last 24 hours): Temp Pulse Resp BP Pulse Ox 97.5 F L 62 20 115/58 L 20 L 09/28/16 09:07 09/28/16 09:07 09/28/16 09:07 09/28/16 09:07 09/28/16 09:07 - Medications Medications: Current Medications Acetaminophen (Tylenol 325mg Tab) 650 mg PO Q6 PRN PRN Reason: Headache Last Admin: 09/27/16 05:57 Dose: 650 mg Amiodarone HCl (Cordarone) 200 mg PO DAILY [facility] Last Admin: 09/27/16 09:22 Dose: 200 mg Budesonide (Pulmicort Respules) 0.25 mg INH RQ12 [facility] Last Admin: 09/28/16 08:22 Dose: 0.25 mg Diltiazem HCl (Cardizem Cd) 240 mg PO DAILY [facility] Last Admin: 09/27/16 09:22 Dose: 240 mg Docusate Sodium (Colace) 100 mg PO DAILY [facility] Last Admin: 09/27/16 14:14 Dose: 100 mg Epoetin Eddie (Procrit) 10,000 unit SC MWF [facility] Last Admin: 09/27/16 14:18 Dose: 10,000 unit Ferric Sodium Gluconate Complex (Ferrlecit) 125 mg IVPB DAILY [facility] Stop: 10/04/16 11:16 Last Admin: 09/27/16 09:23 Dose: 125 mg Insulin Aspart (Novolog) 0 unit SC ACHS [facility] PRN Reason: Protocol Last Admin: 09/27/16 21:21 Dose: Not Given Lactulose (Enulose) 20 gm PO HS [facility] Levothyroxine Sodium (Synthroid) 75 mcg PO DAILY@0630 [facility] Last Admin: 09/28/16 06:00 Dose: 75 mcg Pantoprazole Sodium (Protonix Ec Tab) 20 mg PO DAILY [facility] Last Admin: 09/27/16 09:22 Dose: 20 mg - Labs Labs: 09/28/16 07:37 09/28/16 07:37 PT 11.5 SECONDS (9.7-12.2) 09/26/16 03:19 INR 1.0 09/26/16 03:19 APTT 31 SECONDS (21-34) 09/26/16 03:19 - Constitutional Appears: No Acute Distress, Chronically Ill - Head Exam Head Exam: ATRAUMATIC, NORMAL INSPECTION - Eye Exam Eye Exam: EOMI, Normal appearance - Neck Exam Neck Exam: Normal Inspection. absent: Tenderness - Respiratory Exam Respiratory Exam: Clear to Ausculation Bilateral, NORMAL BREATHING PATTERN - Cardiovascular Exam Cardiovascular Exam: REGULAR RHYTHM, +S1 - GI/Abdominal Exam GI & Abdominal Exam: Distended, Soft. absent: Tenderness - Extremities Exam Extremities Exam: Normal Inspection. absent: Tenderness - Neurological Exam Neurological Exam: Awake, CN II-XII Intact - Skin Skin Exam: Dry, Warm Assessment and Plan (1) CKD (chronic kidney disease) stage 3, GFR 30-59 ml/min Status: Acute (2) Anemia of chronic disease Status: Acute (3) HTN (hypertension) Status: Acute (4) Atrial fibrillation with controlled ventricular response Status: Acute - Assessment and Plan (Free Text) Plan: Check UPEP, SPEP, repeat chemistries
[2016-09-28] MEDS ORDERED: Lidocaine 5% Patch TD ONE (10:30)
[2016-09-28] MEDS: (Novolog) Insulin Aspart, Recombinant 100 u/ml 10 ml vial SC SCH ×4 (11:17→22:20)
[2016-09-28] MEDS ORDERED: Potassium Chloride 20 mEq ER Tab PO ONE (11:47)
[2016-09-28] MEDS ORDERED: Capsaicin 0.025% Cream (60 gm) TOP PRN (14:11)
[2016-09-29] MEDS: Levothyroxine 75 MCG TAB PO SCH (05:32)
[2016-09-29 07:37] LABS: TOTAL PROTEIN, SERUM 6.3 g/dL (6.1-8.1)
--- NOTE | 2016-09-29 07:49 | CP.PCM.PN ---
Subjective - Date & Time of Evaluation Date of Evaluation: 09/29/16 Time of Evaluation: 07:30 - Subjective Subjective: F/U anemia. Denies abdom pain, Cp, SOB, fever, chills INGRAM, cough, hemoptysis, hematuria, RB, melena Objective - Vital Signs/Intake and Output Vital Signs (last 24 hours): Temp Pulse Resp BP Pulse Ox 98.1 F 52 L 20 127/60 98 09/28/16 23:13 09/29/16 03:30 09/28/16 23:13 09/28/16 23:13 09/28/16 23:13 Intake and Output: 09/29/16 09/29/16 06:59 18:59 Output Total 250 Balance -250 - Medications Medications: Current Medications Acetaminophen (Tylenol 325mg Tab) 650 mg PO Q6 PRN PRN Reason: Headache Last Admin: 09/27/16 05:57 Dose: 650 mg Amiodarone HCl (Cordarone) 200 mg PO DAILY [facility] Last Admin: 09/28/16 09:14 Dose: 200 mg Budesonide (Pulmicort Respules) 0.25 mg INH RQ12 [facility] Last Admin: 09/28/16 20:05 Dose: 0.25 mg Capsaicin (Trixaicin) 0 gm TOP TID PRN PRN Reason: Pain, moderate (4-7) Diltiazem HCl (Cardizem Cd) 240 mg PO DAILY [facility] Last Admin: 09/28/16 09:14 Dose: 240 mg Docusate Sodium (Colace) 100 mg PO DAILY [facility] Last Admin: 09/28/16 09:14 Dose: 100 mg Epoetin Eddie (Procrit) 10,000 unit SC MWF [facility] Last Admin: 09/27/16 14:18 Dose: 10,000 unit Ferric Sodium Gluconate Complex (Ferrlecit) 125 mg IVPB DAILY [facility] Stop: 10/04/16 11:16 Last Admin: 09/28/16 09:14 Dose: 125 mg Insulin Aspart (Novolog) 0 unit SC ACHS [facility] PRN Reason: Protocol Last Admin: 09/28/16 22:20 Dose: Not Given Lactulose (Enulose) 20 gm PO HS [facility] Last Admin: 09/28/16 22:13 Dose: 20 gm Levothyroxine Sodium (Synthroid) 75 mcg PO DAILY@0630 [facility] Last Admin: 09/29/16 05:32 Dose: 75 mcg Pantoprazole Sodium (Protonix Ec Tab) 20 mg PO DAILY [facility] Last Admin: 09/28/16 09:13 Dose: 20 mg - Labs Labs: 09/28/16 07:37 09/28/16 07:37 PT 11.5 SECONDS (9.7-12.2) 09/26/16 03:19 INR 1.0 09/26/16 03:19 APTT 31 SECONDS (21-34) 09/26/16 03:19 - Constitutional Appears: Well - Respiratory Exam Respiratory Exam: Clear to Ausculation Bilateral - Cardiovascular Exam Cardiovascular Exam: RRR - GI/Abdominal Exam GI & Abdominal Exam: Soft, Normal Bowel Sounds. absent: Tenderness - Neurological Exam Neurological Exam: Alert, Oriented x3 Assessment and Plan (1) Anemia Assessment & Plan: Hb stable. Consider sm bowel lesion/AVM. For enteroscopy today. Status: Acute (2) CKD (chronic kidney disease) stage 3, GFR 30-59 ml/min Status: Acute (3) Diabetes Status: Acute (4) HTN (hypertension) Status: Acute (5) History of atrial fibrillation Status: Acute (6) History of gastroesophageal reflux (GERD) Status: Acute (7) Gastritis Status: Acute
[2016-09-29] MEDS: (Novolog) Insulin Aspart, Recombinant 100 u/ml 10 ml vial SC SCH ×4 (08:11→21:37)
[2016-09-29 08:21] LABS: BASO # 0.1 K/uL (0.0-0.2); BASO % 0.7 % (0.0-2.0); EOS # 0.2 K/uL (0.0-0.7); EOS % 1.6 % (0.0-4.0); HEMATOCRIT 29.6 % (34.0-47.0); LYMPH # 2.4 K/uL (1.0-4.3); LYMPH % 20.6 % (20.0-40.0); MEAN CELL VOLUME 93.2 fL (81.0-99.0); MEAN CORPUSCULAR HEMOGLOBIN 30.4 pg (27.0-31.0); MEAN CORPUSCULAR HGB CONC 32.6 g/dL (33.0-37.0); MEAN PLATELET VOLUME 8.8 fL (7.2-11.7); MONO # 0.5 K/uL (0.0-0.8); MONO % 4.3 % (0.0-10.0); NRBC % 0.2 % (0.0-2.0); PLATELET COUNT 198 K/uL (130-400); RED CELL DISTRIBUTION WIDTH 16.9 % (11.5-14.5); WHITE BLOOD COUNT 11.8 K/uL (4.8-10.8)
[2016-09-29] MEDS: Budesonide 0.25 mg/2 ml Inhal Susp UD INH SCH ×2 (08:31→19:56)
[2016-09-29 09:48] LABS: POTASSIUM 4.5 mmol/L (3.6-5.2)
[2016-09-29 09:51] LABS: ALB/GLOB RATIO 1.5 (1.0-2.1); BILIRUBIN,TOTAL 0.6 mg/dL (0.2-1.3); CALCIUM 8.4 mg/dl (8.6-10.4); TOTAL PROTEIN 6.2 g/dL (6.3-8.3)
[2016-09-29 09:52] LABS: MAGNESIUM 2.2 mg/dL (1.6-2.3)
[2016-09-29] MEDS: diltiaZEM 240 mg/24 Hours CD Cap PO SCH (10:57)
[2016-09-29] MEDS: Pantoprazole 20 mg EC Tab PO SCH (10:58)
--- NOTE | 2016-09-29 11:33 | CP.PCM.PN ---
<Libby Johnson DO - Last Filed: 09/29/16 11:34> Subjective - Date & Time of Evaluation Date of Evaluation: 09/29/16 Time of Evaluation: 07:55 - Subjective Subjective: PGY1 progress note for Dr Muñoz Patient seen and examined. Patient states she feels weak and reports dark black stool yesterday. Patient to have enteroscopy today. Objective - Vital Signs/Intake and Output Vital Signs (last 24 hours): Temp Pulse Resp BP Pulse Ox 97.4 F L 66 18 134/65 97 09/29/16 07:30 09/29/16 08:26 09/29/16 07:30 09/29/16 07:30 09/29/16 07:30 Intake and Output: 09/29/16 09/29/16 06:59 18:59 Output Total 250 Balance -250 - Medications Medications: Current Medications Acetaminophen (Tylenol 325mg Tab) 650 mg PO Q6 PRN PRN Reason: Headache Last Admin: 09/27/16 05:57 Dose: 650 mg Amiodarone HCl (Cordarone) 200 mg PO DAILY [facility] Last Admin: 09/29/16 10:58 Dose: Not Given Budesonide (Pulmicort Respules) 0.25 mg INH RQ12 [facility] Last Admin: 09/29/16 08:31 Dose: 0.25 mg Capsaicin (Trixaicin) 0 gm TOP TID PRN PRN Reason: Pain, moderate (4-7) Diltiazem HCl (Cardizem Cd) 240 mg PO DAILY [facility] Last Admin: 09/29/16 10:57 Dose: Not Given Docusate Sodium (Colace) 100 mg PO DAILY [facility] Last Admin: 09/29/16 10:58 Dose: Not Given Epoetin Eddie (Procrit) 10,000 unit SC MWF [facility] Last Admin: 09/27/16 14:18 Dose: 10,000 unit Ferric Sodium Gluconate Complex (Ferrlecit) 125 mg IVPB DAILY [facility] Stop: 10/04/16 11:16 Last Admin: 09/28/16 09:14 Dose: 125 mg Insulin Aspart (Novolog) 0 unit SC ACHS [facility] PRN Reason: Protocol Last Admin: 09/29/16 08:11 Dose: Not Given Lactulose (Enulose) 20 gm PO HS [facility] Last Admin: 09/28/16 22:13 Dose: 20 gm Levothyroxine Sodium (Synthroid) 75 mcg PO DAILY@0630 [facility] Last Admin: 09/29/16 05:32 Dose: 75 mcg Pantoprazole Sodium (Protonix Ec Tab) 20 mg PO DAILY [facility] Last Admin: 09/29/16 10:58 Dose: Not Given - Labs Labs: 09/29/16 07:56 09/29/16 07:56 PT 11.5 SECONDS (9.7-12.2) 09/26/16 03:19 INR 1.0 09/26/16 03:19 APTT 31 SECONDS (21-34) 09/26/16 03:19 - Constitutional Appears: No Acute Distress - Head Exam Head Exam: ATRAUMATIC, NORMOCEPHALIC - Eye Exam Eye Exam: EOMI - ENT Exam ENT Exam: Mucous Membranes Moist - Respiratory Exam Respiratory Exam: Clear to Ausculation Bilateral, NORMAL BREATHING PATTERN - Cardiovascular Exam Cardiovascular Exam: +S1, +S2 - GI/Abdominal Exam GI & Abdominal Exam: Soft, Normal Bowel Sounds - Extremities Exam Extremities Exam: Pedal Edema (mild b/l) - Neurological Exam Neurological Exam: Alert, Awake - Psychiatric Exam Psychiatric exam: Normal Affect - Skin Skin Exam: Pallor, Warm Assessment and Plan - Assessment and Plan (Free Text) Assessment: Symptomatic anemia Assessment and Plan: Pt to have enteroscopy today s/p 5 units PRBC. Hgb stable at 9.6 Monitor for signs of fluid overload. Patient with hx of 2 weeks of dark stools; Still with some scant bleeding per rectum. Stool occult positive:Continue to monitor BMs. F/U GI (Dr. Reyes) recommendations: On schedule for enteroscopy tmrw after discussing case with Dr. Reginald Nails ( GI fellow) Will F/U EGD 09/26: Z line regular, LA grade A esophagitis, small hiatal hernia. Anemia can be further exacerbated by decreased kidney function. Cr and BUN elevated Status: Acute Acute kidney injury Assessment and Plan: BUN and Cr trending down, Cr 1.4 today Renal US- b/l cortical thinning, no calculus appreciated or hydronephrosis, b/l renal/ parapelvic cysts. refer to complete report. F/U 24 hr Urine collection F/U Nephro ( Dr. Bill group recommendations) as noted above Nephrology recommendations- IV iron , Protein studies resulted; SPEP- M spike noted may require further analysis. Status: Acute History of atrial fibrillation Assessment and Plan: On Amiodarone and Cardizem On telemetry monitoring: Rate and rhythm controlled F/U Cardiology ( Dr. Zelaya) recommendations Prior Echo from 2016 with EF 83%, LV normal size, borderline concentric left ventricular hypertrophy with normal LVEF, mitral valve leaflets are thickened and calcified, moderate to severe pulm HTN noted. Status: Acute Diabetes Assessment and Plan: Accuchecks Medium dose ISS Hold Glipizide at this time. Status: Acute Hypothyroidism Assessment and Plan: Abnormal thyroid studies Begin Levothyroxine 75 mcg daily Status: Acute HTN (hypertension) Assessment and Plan: Normotensive at this time. Cont to monitor. Status: Acute Back Pain Assessment and Plan: Lidocaine patch given x1 Patient has received capsaicin cream in the past during June admission. Will consider use if Lidocaine patch does not provide relief. Status: Acute History of gastroesophageal reflux (GERD) Assessment and Plan: Protonix 20 mg PO daily Status: Acute Prophylactic measure Assessment and Plan: Chemical anticoagulation contraindicated due to suspected GI bleed SCDs contraindicated due to b/l LE swelling PPI 20 mg daily Fall risk protocol Status: Acute <José Antonio Muñoz H - Last Filed: 09/29/16 16:52> Objective - Vital Signs/Intake and Output Vital Signs (last 24 hours): Temp Pulse Resp BP Pulse Ox 99.0 F 62 12 121/44 L 100 09/29/16 14:30 09/29/16 14:30 09/29/16 14:30 09/29/16 14:30 09/29/16 14:30 Intake and Output: 09/29/16 09/29/16 06:59 18:59 Output Total 250 Balance -250 - Medications Medications: Current Medications Acetaminophen (Tylenol 325mg Tab) 650 mg PO Q6 PRN PRN Reason: Headache Last Admin: 09/27/16 05:57 Dose: 650 mg Amiodarone HCl (Cordarone) 200 mg PO DAILY [facility] Last Admin: 09/29/16 10:58 Dose: Not Given Budesonide (Pulmicort Respules) 0.25 mg INH RQ12 [facility] Last Admin: 09/29/16 08:31 Dose: 0.25 mg Capsaicin (Trixaicin) 0 gm TOP TID PRN PRN Reason: Pain, moderate (4-7) Diltiazem HCl (Cardizem Cd) 240 mg PO DAILY [facility] Last Admin: 09/29/16 10:57 Dose: Not Given Docusate Sodium (Colace) 100 mg PO DAILY [facility] Last Admin: 09/29/16 10:58 Dose: Not Given Epoetin Eddie (Procrit) 10,000 unit SC MWF [facility] Last Admin: 09/29/16 14:30 Dose: Not Given Ferric Sodium Gluconate Complex (Ferrlecit) 125 mg IVPB DAILY [facility] Stop: 10/04/16 11:16 Last Admin: 09/29/16 14:29 Dose: Not Given Lactated Ringer's (Lactated Ringer's 500ml) 500 mls @ 75 mls/hr IV .[id number] [facility] Sodium Chloride (Sodium Chloride 0.9%) 1,000 mls @ 75 mls/hr IV .[id number] [facility] Stop: 09/30/16 13:00 Insulin Aspart (Novolog) 0 unit SC ACHS [facility] PRN Reason: Protocol Last Admin: 09/29/16 12:10 Dose: Not Given Lactulose (Enulose) 20 gm PO HS [facility] Last Admin: 09/28/16 22:13 Dose: 20 gm Levothyroxine Sodium (Synthroid) 75 mcg PO DAILY@0630 [facility] Last Admin: 09/29/16 05:32 Dose: 75 mcg Pantoprazole Sodium (Protonix Ec Tab) 20 mg PO DAILY [facility] Last Admin: 09/29/16 10:58 Dose: Not Given - Labs Labs: 09/29/16 07:56 09/29/16 07:56 PT 11.5 SECONDS (9.7-12.2) 09/26/16 03:19 INR 1.0 09/26/16 03:19 APTT 31 SECONDS (21-34) 09/26/16 03:19 Attending/Attestation - Attestation I have personally seen and examined this patient.: Yes I have fully participated in the care of the patient.: Yes I have reviewed all pertinent clinical information, including history, physical exam and plan: Yes Notes (Text): Medical attending: Patient was seen and examined by me, agrees the above note by medical planner. We saw the patient earlier in the morning before she had entroscopy. Hopefully we'll have more information after this procedure. The patient's hemoglobin remained above 9. As mentioned before she's had several units of PRBCs given.
[2016-09-29 12:27] LABS: BASOPHIL 1 % (0-2); EOSINOPHIL 5 % (0-4); NEUTROPHIL 60 % (50-75); TOTAL CELLS COUNTED 100
[2016-09-29] MEDS ORDERED: Propofol 10 mg/ml Inj (20 ML) ONE (13:33)
[2016-09-29] MEDS ORDERED: Lactated Ringer's 500 ML IV ONE ×2 (13:35)
[2016-09-29] MEDS ORDERED: Lactated Ringer's 500 ML IV SCH (13:45)
--- NOTE | 2016-09-29 13:51 | CP.PCM.PN ---
Subjective - Date & Time of Evaluation Date of Evaluation: 09/29/16 Time of Evaluation: 13:48 - Subjective Subjective: For enteroscopy BP has been controlled Has been on IV Fe Creat stable at 1.4 SPEP and SEUN studies pending Has had no new complaints Objective - Vital Signs/Intake and Output Vital Signs (last 24 hours): Temp Pulse Resp BP Pulse Ox 97.4 F L 66 18 134/65 97 09/29/16 07:30 09/29/16 13:39 09/29/16 13:39 09/29/16 13:39 09/29/16 13:39 Intake and Output: 09/29/16 09/29/16 06:59 18:59 Output Total 250 Balance -250 - Medications Medications: Current Medications Acetaminophen (Tylenol 325mg Tab) 650 mg PO Q6 PRN PRN Reason: Headache Last Admin: 09/27/16 05:57 Dose: 650 mg Amiodarone HCl (Cordarone) 200 mg PO DAILY [facility] Last Admin: 09/29/16 10:58 Dose: Not Given Budesonide (Pulmicort Respules) 0.25 mg INH RQ12 [facility] Last Admin: 09/29/16 08:31 Dose: 0.25 mg Capsaicin (Trixaicin) 0 gm TOP TID PRN PRN Reason: Pain, moderate (4-7) Diltiazem HCl (Cardizem Cd) 240 mg PO DAILY [facility] Last Admin: 09/29/16 10:57 Dose: Not Given Docusate Sodium (Colace) 100 mg PO DAILY [facility] Last Admin: 09/29/16 10:58 Dose: Not Given Epoetin Eddie (Procrit) 10,000 unit SC MWF [facility] Last Admin: 09/27/16 14:18 Dose: 10,000 unit Ferric Sodium Gluconate Complex (Ferrlecit) 125 mg IVPB DAILY [facility] Stop: 10/04/16 11:16 Last Admin: 09/28/16 09:14 Dose: 125 mg Lactated Ringer's (Lactated Ringer's 500ml) 500 mls @ 75 mls/hr IV .Q6H40M [facility] Insulin Aspart (Novolog) 0 unit SC ACHS [facility] PRN Reason: Protocol Last Admin: 09/29/16 12:10 Dose: Not Given Lactulose (Enulose) 20 gm PO HS [facility] Last Admin: 09/28/16 22:13 Dose: 20 gm Levothyroxine Sodium (Synthroid) 75 mcg PO DAILY@0630 [facility] Last Admin: 09/29/16 05:32 Dose: 75 mcg Ondansetron HCl (Zofran Inj) 4 mg IVP ONCE PRN PRN Reason: Nausea/Vomiting Stop: 09/29/16 15:36 Pantoprazole Sodium (Protonix Ec Tab) 20 mg PO DAILY [facility] Last Admin: 09/29/16 10:58 Dose: Not Given - Labs Labs: 09/29/16 07:56 09/29/16 07:56 PT 11.5 SECONDS (9.7-12.2) 09/26/16 03:19 INR 1.0 09/26/16 03:19 APTT 31 SECONDS (21-34) 09/26/16 03:19 - Constitutional Appears: No Acute Distress, Chronically Ill - Head Exam Head Exam: ATRAUMATIC, NORMAL INSPECTION - Eye Exam Eye Exam: EOMI, Normal appearance - Neck Exam Neck Exam: Normal Inspection. absent: Tenderness - Respiratory Exam Respiratory Exam: Clear to Ausculation Bilateral, NORMAL BREATHING PATTERN - Cardiovascular Exam Cardiovascular Exam: Irregular Rhythm, +S1 - GI/Abdominal Exam GI & Abdominal Exam: Soft. absent: Tenderness - Extremities Exam Extremities Exam: Normal Inspection. absent: Tenderness - Neurological Exam Neurological Exam: Awake, CN II-XII Intact - Skin Skin Exam: Dry, Warm Assessment and Plan (1) CKD (chronic kidney disease) stage 3, GFR 30-59 ml/min Status: Acute (2) Anemia of chronic disease Status: Acute (3) HTN (hypertension) Status: Acute (4) Atrial fibrillation with controlled ventricular response Status: Acute - Assessment and Plan (Free Text) Plan: Await enteroscopy results Follow up renal function Same BP control
[2016-09-29] MEDS ORDERED: Simethicone 40 mg/0.6 ml Liquid (30 ml) ONE ×2 (13:56→13:58)
[2016-09-29] MEDS: Ferric Sodium Gluconat Complex 62.5 mg/5 ml Vial IVPB SCH (14:29)
[2016-09-29] MEDS: EPOETIN ALFA 10,000 UNIT/ML ML SC SCH (14:30)
--- NOTE | 2016-09-29 14:31 | CP.PCM.PN ---
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 Discussed with Dr Sahu. Hgb levels are stable post transfusion Objective - Vital Signs/Intake and Output Vital Signs (last 24 hours): Temp Pulse Resp BP Pulse Ox 97.4 F L 66 18 134/65 97 09/29/16 07:30 09/29/16 13:39 09/29/16 13:39 09/29/16 13:39 09/29/16 13:39 Intake and Output: 09/29/16 09/29/16 06:59 18:59 Output Total 250 Balance -250 - Medications Medications: Current Medications Acetaminophen (Tylenol 325mg Tab) 650 mg PO Q6 PRN PRN Reason: Headache Last Admin: 09/27/16 05:57 Dose: 650 mg Amiodarone HCl (Cordarone) 200 mg PO DAILY [facility] Last Admin: 09/29/16 10:58 Dose: Not Given Budesonide (Pulmicort Respules) 0.25 mg INH RQ12 [facility] Last Admin: 09/29/16 08:31 Dose: 0.25 mg Capsaicin (Trixaicin) 0 gm TOP TID PRN PRN Reason: Pain, moderate (4-7) Diltiazem HCl (Cardizem Cd) 240 mg PO DAILY [facility] Last Admin: 09/29/16 10:57 Dose: Not Given Docusate Sodium (Colace) 100 mg PO DAILY [facility] Last Admin: 09/29/16 10:58 Dose: Not Given Epoetin Eddie (Procrit) 10,000 unit SC MWF [facility] Last Admin: 09/27/16 14:18 Dose: 10,000 unit Ferric Sodium Gluconate Complex (Ferrlecit) 125 mg IVPB DAILY [facility] Stop: 10/04/16 11:16 Last Admin: 09/28/16 09:14 Dose: 125 mg Lactated Ringer's (Lactated Ringer's 500ml) 500 mls @ 75 mls/hr IV .Q6H40M [facility] Insulin Aspart (Novolog) 0 unit SC ACHS [facility] PRN Reason: Protocol Last Admin: 09/29/16 12:10 Dose: Not Given Lactulose (Enulose) 20 gm PO HS [facility] Last Admin: 09/28/16 22:13 Dose: 20 gm Levothyroxine Sodium (Synthroid) 75 mcg PO DAILY@0630 [facility] Last Admin: 09/29/16 05:32 Dose: 75 mcg Ondansetron HCl (Zofran Inj) 4 mg IVP ONCE PRN PRN Reason: Nausea/Vomiting Stop: 09/29/16 15:36 Pantoprazole Sodium (Protonix Ec Tab) 20 mg PO DAILY [facility] Last Admin: 09/29/16 10:58 Dose: Not Given - Labs Labs: 09/29/16 07:56 09/29/16 07:56 PT 11.5 SECONDS (9.7-12.2) 09/26/16 03:19 INR 1.0 09/26/16 03:19 APTT 31 SECONDS (21-34) 09/26/16 03:19 - Constitutional Appears: Well - Head Exam Head Exam: NORMOCEPHALIC - Eye Exam Eye Exam: absent: Scleral icterus - Neck Exam Neck Exam: Normal Inspection - Respiratory Exam Respiratory Exam: NORMAL BREATHING PATTERN - Cardiovascular Exam Cardiovascular Exam: REGULAR RHYTHM - GI/Abdominal Exam GI & Abdominal Exam: Soft. absent: Distended, Tenderness, Organomegaly Assessment and Plan (1) Anemia Assessment & Plan: Secondary to obscure GI bleeding, likely from distal SB source not reachable by standard endoscopy/colonoscopy. Enteroscopy today normal, though technically limited exam Rec: Will order CTA after 6 hours of IV hydration (discussed with Dr Bill) If CTA unremarkable, will refer to [facility] as outpatient for DBE Status: Acute (2) Atrial fibrillation with controlled ventricular response Assessment & Plan: Managed by cardiology Status: Acute
--- NOTE | 2016-09-29 17:53 | CP.PCM.PN ---
Subjective - Date & Time of Evaluation Date of Evaluation: 09/29/16 Time of Evaluation: 08:00 Objective - Vital Signs/Intake and Output Vital Signs (last 24 hours): Temp Pulse Resp BP Pulse Ox 97.6 F 67 20 143/66 100 09/29/16 15:21 09/29/16 15:21 09/29/16 15:21 09/29/16 15:21 09/29/16 15:21 Intake and Output: 09/29/16 09/29/16 06:59 18:59 Output Total 250 Balance -250 - Medications Medications: Current Medications Acetaminophen (Tylenol 325mg Tab) 650 mg PO Q6 PRN PRN Reason: Headache Last Admin: 09/27/16 05:57 Dose: 650 mg Amiodarone HCl (Cordarone) 200 mg PO DAILY [facility] Last Admin: 09/29/16 10:58 Dose: Not Given Budesonide (Pulmicort Respules) 0.25 mg INH RQ12 [facility] Last Admin: 09/29/16 08:31 Dose: 0.25 mg Capsaicin (Trixaicin) 0 gm TOP TID PRN PRN Reason: Pain, moderate (4-7) Diltiazem HCl (Cardizem Cd) 240 mg PO DAILY [facility] Last Admin: 09/29/16 10:57 Dose: Not Given Docusate Sodium (Colace) 100 mg PO DAILY [facility] Last Admin: 09/29/16 10:58 Dose: Not Given Epoetin Eddie (Procrit) 10,000 unit SC MWF [facility] Last Admin: 09/29/16 14:30 Dose: Not Given Ferric Sodium Gluconate Complex (Ferrlecit) 125 mg IVPB DAILY [facility] Stop: 10/04/16 11:16 Last Admin: 09/29/16 14:29 Dose: Not Given Lactated Ringer's (Lactated Ringer's 500ml) 500 mls @ 75 mls/hr IV .Q6H40M [facility] Sodium Chloride (Sodium Chloride 0.9%) 1,000 mls @ 75 mls/hr IV .[id number] [facility] Stop: 09/30/16 13:00 Insulin Aspart (Novolog) 0 unit SC ACHS [facility] PRN Reason: Protocol Last Admin: 09/29/16 12:10 Dose: Not Given Lactulose (Enulose) 20 gm PO HS [facility] Last Admin: 09/28/16 22:13 Dose: 20 gm Levothyroxine Sodium (Synthroid) 75 mcg PO DAILY@0630 [facility] Last Admin: 09/29/16 05:32 Dose: 75 mcg Pantoprazole Sodium (Protonix Ec Tab) 20 mg PO DAILY [facility] Last Admin: 09/29/16 10:58 Dose: Not Given - Labs Labs: 09/29/16 07:56 09/29/16 07:56 PT 11.5 SECONDS (9.7-12.2) 09/26/16 03:19 INR 1.0 09/26/16 03:19 APTT 31 SECONDS (21-34) 09/26/16 03:19
[2016-09-29 20:23] LABS: ABNORMAL PROTEIN BAND 1 0.14 g/dL (None Detected); BETA 1 GLOBULIN 0.4 g/dL (0.4-0.6); BETA 2 GLOBULIN 0.3 g/dL (0.2-0.5); GAMMA GLOBULIN 0.6 g/dL (0.8-1.7)
[2016-09-30] MEDS ORDERED: Sodium Chloride 0.9% 1,000 ML IV SCH (05:00)
[2016-09-30] MEDS: Levothyroxine 75 MCG TAB PO SCH (05:47)
--- NOTE | 2016-09-30 06:59 | CP.PCM.PN ---
Subjective - Date & Time of Evaluation Date of Evaluation: 09/30/16 Time of Evaluation: 06:59 Objective - Vital Signs/Intake and Output Vital Signs (last 24 hours): Temp Pulse Resp BP Pulse Ox 97.7 F 64 20 118/51 L 100 09/29/16 23:05 09/29/16 23:53 09/29/16 23:05 09/29/16 23:05 09/29/16 23:05 - Medications Medications: Current Medications Acetaminophen (Tylenol 325mg Tab) 650 mg PO Q6 PRN PRN Reason: Headache Last Admin: 09/27/16 05:57 Dose: 650 mg Amiodarone HCl (Cordarone) 200 mg PO DAILY [facility] Last Admin: 09/29/16 10:58 Dose: Not Given Budesonide (Pulmicort Respules) 0.25 mg INH RQ12 [facility] Last Admin: 09/29/16 19:56 Dose: 0.25 mg Capsaicin (Trixaicin) 0 gm TOP TID PRN PRN Reason: Pain, moderate (4-7) Last Admin: 09/29/16 20:46 Dose: 60 gm Diltiazem HCl (Cardizem Cd) 240 mg PO DAILY [facility] Last Admin: 09/29/16 10:57 Dose: Not Given Docusate Sodium (Colace) 100 mg PO DAILY [facility] Last Admin: 09/29/16 10:58 Dose: Not Given Epoetin Eddie (Procrit) 10,000 unit SC MWF [facility] Last Admin: 09/29/16 14:30 Dose: Not Given Ferric Sodium Gluconate Complex (Ferrlecit) 125 mg IVPB DAILY [facility] Stop: 10/04/16 11:16 Last Admin: 09/29/16 14:29 Dose: Not Given Lactated Ringer's (Lactated Ringer's 500ml) 500 mls @ 75 mls/hr IV .Q6H40M [facility] Last Admin: 09/29/16 20:44 Dose: 75 mls/hr Sodium Chloride (Sodium Chloride 0.9%) 1,000 mls @ 75 mls/hr IV .[id number] [facility] Stop: 09/30/16 13:00 Last Admin: 09/30/16 05:15 Dose: 75 mls/hr Insulin Aspart (Novolog) 0 unit SC ACHS [facility] PRN Reason: Protocol Last Admin: 09/29/16 21:37 Dose: Not Given Lactulose (Enulose) 20 gm PO HS [facility] Last Admin: 09/29/16 21:01 Dose: 20 gm Levothyroxine Sodium (Synthroid) 75 mcg PO DAILY@0630 [facility] Last Admin: 09/30/16 05:47 Dose: 75 mcg Pantoprazole Sodium (Protonix Ec Tab) 20 mg PO DAILY [facility] Last Admin: 09/29/16 10:58 Dose: Not Given - Labs Labs: 09/29/16 07:56 09/29/16 07:56 PT 11.5 SECONDS (9.7-12.2) 09/26/16 03:19 INR 1.0 09/26/16 03:19 APTT 31 SECONDS (21-34) 09/26/16 03:19
[2016-09-30] MEDS: (Novolog) Insulin Aspart, Recombinant 100 u/ml 10 ml vial SC SCH ×4 (08:24→21:56)
[2016-09-30] MEDS: Budesonide 0.25 mg/2 ml Inhal Susp UD INH SCH ×2 (08:46→20:34)
[2016-09-30 09:05] LABS: BASO # 0.1 K/uL (0.0-0.2); BASO % 0.7 % (0.0-2.0); EOS # 0.2 K/uL (0.0-0.7); EOS % 1.5 % (0.0-4.0); HEMATOCRIT 32.3 % (34.0-47.0); LYMPH # 2.3 K/uL (1.0-4.3); LYMPH % 18.7 % (20.0-40.0); MEAN CELL VOLUME 93.5 fL (81.0-99.0); MEAN CORPUSCULAR HEMOGLOBIN 30.6 pg (27.0-31.0); MEAN CORPUSCULAR HGB CONC 32.7 g/dL (33.0-37.0); MEAN PLATELET VOLUME 8.6 fL (7.2-11.7); MONO # 0.5 K/uL (0.0-0.8); MONO % 4.1 % (0.0-10.0); NRBC % 0.1 % (0.0-2.0); RED CELL DISTRIBUTION WIDTH 16.6 % (11.5-14.5); WHITE BLOOD COUNT 12.4 K/uL (4.8-10.8)
--- NOTE | 2016-09-30 09:10 | CP.PCM.PN ---
Subjective - Date & Time of Evaluation Date of Evaluation: 09/30/16 Time of Evaluation: 09:00 - Subjective Subjective: Patient was sitting up out of bed when I saw her. She tolerated breakfast ok. I appeared she ate about 50% of the food. She explains she did have a small BM. When I asked what color it was she reported the same color as her hair (dark) color. Currently pending on morning CBC and CMP Yesterday completed enteroscopy and per GI reported normal, but with some limitation to the deep SB. She also had a CTA of the abdomen/pelvis done - the results of which are still pending at the moment. With reguard to her history of atrial fibrillation, the patient is NSR in the 60s to 70s on the telemonitor. Rate controlled at this time. Off anticoagulation at this time. With reguard to her renal function - this has improved a lot. Objective - Vital Signs/Intake and Output Vital Signs (last 24 hours): Temp Pulse Resp BP Pulse Ox 97.6 F 65 20 132/66 93 L 09/30/16 07:40 09/30/16 07:40 09/30/16 07:40 09/30/16 07:40 09/30/16 07:40 - Medications Medications: Current Medications Acetaminophen (Tylenol 325mg Tab) 650 mg PO Q6 PRN PRN Reason: Headache Last Admin: 09/27/16 05:57 Dose: 650 mg Amiodarone HCl (Cordarone) 200 mg PO DAILY [facility] Last Admin: 09/29/16 10:58 Dose: Not Given Budesonide (Pulmicort Respules) 0.25 mg INH RQ12 [facility] Last Admin: 09/29/16 19:56 Dose: 0.25 mg Capsaicin (Trixaicin) 0 gm TOP TID PRN PRN Reason: Pain, moderate (4-7) Last Admin: 09/29/16 20:46 Dose: 60 gm Diltiazem HCl (Cardizem Cd) 240 mg PO DAILY [facility] Last Admin: 09/29/16 10:57 Dose: Not Given Docusate Sodium (Colace) 100 mg PO DAILY [facility] Last Admin: 09/29/16 10:58 Dose: Not Given Epoetin Eddie (Procrit) 10,000 unit SC MWF [facility] Last Admin: 09/29/16 14:30 Dose: Not Given Ferric Sodium Gluconate Complex (Ferrlecit) 125 mg IVPB DAILY [facility] Stop: 10/04/16 11:16 Last Admin: 09/29/16 14:29 Dose: Not Given Lactated Ringer's (Lactated Ringer's 500ml) 500 mls @ 75 mls/hr IV .Q6H40M [facility] Last Admin: 09/29/16 20:44 Dose: 75 mls/hr Sodium Chloride (Sodium Chloride 0.9%) 1,000 mls @ 75 mls/hr IV .[id number] [facility] Stop: 09/30/16 13:00 Last Admin: 09/30/16 05:15 Dose: 75 mls/hr Insulin Aspart (Novolog) 0 unit SC ACHS [facility] PRN Reason: Protocol Last Admin: 09/30/16 08:24 Dose: Not Given Lactulose (Enulose) 20 gm PO HS [facility] Last Admin: 09/29/16 21:01 Dose: 20 gm Levothyroxine Sodium (Synthroid) 75 mcg PO DAILY@0630 [facility] Last Admin: 09/30/16 05:47 Dose: 75 mcg Pantoprazole Sodium (Protonix Ec Tab) 20 mg PO DAILY [facility] Last Admin: 09/29/16 10:58 Dose: Not Given - Labs Labs: 09/30/16 08:50 09/29/16 07:56 PT 11.5 SECONDS (9.7-12.2) 09/26/16 03:19 INR 1.0 09/26/16 03:19 APTT 31 SECONDS (21-34) 09/26/16 03:19 - Constitutional Appears: Well, Non-toxic, No Acute Distress - Head Exam Head Exam: NORMAL INSPECTION - Eye Exam Eye Exam: EOMI, Normal appearance - ENT Exam ENT Exam: Mucous Membranes Moist - Respiratory Exam Respiratory Exam: Clear to Ausculation Bilateral, NORMAL BREATHING PATTERN - Cardiovascular Exam Cardiovascular Exam: REGULAR RHYTHM - GI/Abdominal Exam GI & Abdominal Exam: Soft, Normal Bowel Sounds. absent: Distended, Firm, Guarding, Rigid, Tenderness - Extremities Exam Extremities Exam: Full ROM - Neurological Exam Neurological Exam: Alert, Awake, Oriented x3 Neuro motor strength exam: Left Upper Extremity: 5, Right Upper Extremity: 5, Left Lower Extremity: 5, Right Lower Extremity: 5 - Psychiatric Exam Psychiatric exam: Normal Affect, Normal Mood - Skin Skin Exam: Normal Color, Warm Additional comments: Not pale like when she came in to hospital Assessment and Plan - Assessment and Plan (Free Text) Assessment: Symptomatic anemia Assessment and Plan: 09/30: Pending CBC results this morning. She reports she did have a small BM this morning and it appeared dark to her. She had enteroscopy yesterday. She is getting IV ferreclit as well as Procrit. s/p 5 units PRBC. Monitor for signs of fluid overload. Patient with hx of 2 weeks of dark stools; Still with some scant bleeding per rectum. Stool occult positive:Continue to monitor BMs. F/U GI (Dr. Reyes) EGD 09/26: Z line regular, LA grade A esophagitis, small hiatal hernia. Anemia can be further exacerbated by decreased kidney function. Cr and BUN elevated Status: Acute Acute kidney injury on chronic CKD Assessment and Plan: 09/30: Doing better, Procrit. BUN and Cr trending down, Cr 1.4 today Renal US- b/l cortical thinning, no calculus appreciated or hydronephrosis, b/l renal/ parapelvic cysts. refer to complete report. F/U 24 hr Urine collection F/U Nephro ( Dr. Bill group recommendations) as noted above Nephrology recommendations- IV iron , Protein studies resulted; SPEP- M spike noted may require further analysis. Status: Acute History of atrial fibrillation Assessment and Plan: 09/30: Patient NSR currently on lunchroom monitor. Rate 60s to 70s. Because of the anemia currently not on anticoagulation. Rate control with amiodarone and cardizem On telemetry monitoring: Rate and rhythm controlled F/U Cardiology ( Dr. Zelaya) recommendations Prior Echo from 2016 with EF 83%, LV normal size, borderline concentric left ventricular hypertrophy with normal LVEF, mitral valve leaflets are thickened and calcified, moderate to severe pulm HTN noted. Status: Acute Diabetes Assessment and Plan: 09/30: Doing well, reccent accuchecks have been 140s to 160s. Not on glipizide at this time Medium dose ISS Status: Acute Hypothyroidism Assessment and Plan: 09/30: Doing ok, in the future needs recheck of TSH T3 T4. Abnormal thyroid studies Begin Levothyroxine 75 mcg daily HTN (hypertension) Assessment and Plan: 09/30: recent systolic numbers have been in the 120s and 130s Normotensive at this time. Cont to monitor. Status: Acute Back Pain Assessment and Plan: Lidocaine patch given x1 Patient has received capsaicin cream in the past during June admission. Will consider use if Lidocaine patch does not provide relief. Status: Acute History of gastroesophageal reflux (GERD) Assessment and Plan: Protonix 20 mg PO daily Status: Acute Prophylactic measure Assessment and Plan: Chemical anticoagulation contraindicated due to suspected GI bleed SCDs contraindicated due to b/l LE swelling PPI 20 mg daily Fall risk protocol
[2016-09-30 09:14] LABS: CREATININE, 24 HOUR URINE 1.01 g/24 h (0.63-2.50); CREATININE, URINE 1.26 g/L
[2016-09-30] MEDS ORDERED: Iodixanol 320 mg/ml 150 ml Bottle IV ONE (09:23)
[2016-09-30 09:28] LABS: POTASSIUM 4.9 mmol/L (3.6-5.2)
[2016-09-30 09:30] LABS: ALB/GLOB RATIO 1.5 (1.0-2.1); BILIRUBIN,TOTAL 0.6 mg/dL (0.2-1.3); TOTAL PROTEIN 6.3 g/dL (6.3-8.3)
[2016-09-30 09:31] LABS: CALCIUM 9.1 mg/dl (8.6-10.4); MAGNESIUM 2.2 mg/dL (1.6-2.3); PHOSPHOROUS 3.9 mg/dL (2.5-4.5)
--- NOTE | 2016-09-30 09:44 | CP.PCM.PN ---
Subjective - Date & Time of Evaluation Date of Evaluation: 09/30/16 Time of Evaluation: 08:15 - Subjective Subjective: no acute complaints eating breakfast on ivf no chest pain no sob no headache no rash no nausea no sinus tenderness no increased thirst Objective - Vital Signs/Intake and Output Vital Signs (last 24 hours): Temp Pulse Resp BP Pulse Ox 97.6 F 65 20 132/66 93 L 09/30/16 07:40 09/30/16 07:40 09/30/16 07:40 09/30/16 07:40 09/30/16 07:40 - Medications Medications: Current Medications Acetaminophen (Tylenol 325mg Tab) 650 mg PO Q6 PRN PRN Reason: Headache Last Admin: 09/27/16 05:57 Dose: 650 mg Amiodarone HCl (Cordarone) 200 mg PO DAILY [facility] Last Admin: 09/29/16 10:58 Dose: Not Given Budesonide (Pulmicort Respules) 0.25 mg INH RQ12 [facility] Last Admin: 09/29/16 19:56 Dose: 0.25 mg Capsaicin (Trixaicin) 0 gm TOP TID PRN PRN Reason: Pain, moderate (4-7) Last Admin: 09/29/16 20:46 Dose: 60 gm Diltiazem HCl (Cardizem Cd) 240 mg PO DAILY [facility] Last Admin: 09/29/16 10:57 Dose: Not Given Docusate Sodium (Colace) 100 mg PO DAILY [facility] Last Admin: 09/29/16 10:58 Dose: Not Given Epoetin Eddie (Procrit) 10,000 unit SC MWF [facility] Last Admin: 09/29/16 14:30 Dose: Not Given Ferric Sodium Gluconate Complex (Ferrlecit) 125 mg IVPB DAILY [facility] Stop: 10/04/16 11:16 Last Admin: 09/29/16 14:29 Dose: Not Given Lactated Ringer's (Lactated Ringer's 500ml) 500 mls @ 75 mls/hr IV .Q6H40M [facility] Last Admin: 09/29/16 20:44 Dose: 75 mls/hr Sodium Chloride (Sodium Chloride 0.9%) 1,000 mls @ 75 mls/hr IV .[id number] [facility] Stop: 09/30/16 13:00 Last Admin: 09/30/16 05:15 Dose: 75 mls/hr Insulin Aspart (Novolog) 0 unit SC ACHS [facility] PRN Reason: Protocol Last Admin: 09/30/16 08:24 Dose: Not Given Lactulose (Enulose) 20 gm PO HS [facility] Last Admin: 09/29/16 21:01 Dose: 20 gm Levothyroxine Sodium (Synthroid) 75 mcg PO DAILY@0630 [facility] Last Admin: 09/30/16 05:47 Dose: 75 mcg Pantoprazole Sodium (Protonix Ec Tab) 20 mg PO DAILY [facility] Last Admin: 09/29/16 10:58 Dose: Not Given - Labs Labs: 09/30/16 08:50 09/30/16 08:50 PT 11.5 SECONDS (9.7-12.2) 09/26/16 03:19 INR 1.0 09/26/16 03:19 APTT 31 SECONDS (21-34) 09/26/16 03:19 - Constitutional Appears: Chronically Ill - Head Exam Head Exam: ATRAUMATIC - Eye Exam Eye Exam: EOMI, Normal appearance - ENT Exam ENT Exam: Mucous Membranes Moist - Neck Exam Neck Exam: Full ROM - Respiratory Exam Respiratory Exam: Clear to Ausculation Bilateral. absent: Chest Wall Tenderness - GI/Abdominal Exam GI & Abdominal Exam: absent: Firm, Guarding - Extremities Exam Extremities Exam: absent: Pedal Edema - Neurological Exam Neurological Exam: Alert, Oriented x3 Assessment and Plan - Assessment and Plan (Free Text) Assessment: gi bleed, GI followup elise, stable post angiogram with ivf, stable avoid nephotoxic agents continue to follow
[2016-09-30] MEDS: diltiaZEM 240 mg/24 Hours CD Cap PO SCH (10:14)
[2016-09-30] MEDS: Ferric Sodium Gluconat Complex 62.5 mg/5 ml Vial IVPB SCH (10:15)
[2016-09-30] MEDS: Pantoprazole 20 mg EC Tab PO SCH (10:45)
--- NOTE | 2016-09-30 11:17 | CP.PCM.PN ---
Subjective - Date & Time of Evaluation Date of Evaluation: 09/30/16 Time of Evaluation: 11:12 - Subjective Subjective: Patient had one bowel movement this morning which was still black. She denies having nausea, vomiting, abdominal pain. Objective - Vital Signs/Intake and Output Vital Signs (last 24 hours): Temp Pulse Resp BP Pulse Ox 97.6 F 65 20 132/66 93 L 09/30/16 07:40 09/30/16 07:40 09/30/16 07:40 09/30/16 07:40 09/30/16 07:40 - Medications Medications: Current Medications Acetaminophen (Tylenol 325mg Tab) 650 mg PO Q6 PRN PRN Reason: Headache Last Admin: 09/27/16 05:57 Dose: 650 mg Amiodarone HCl (Cordarone) 200 mg PO DAILY REPLACED BY [facility] Last Admin: 09/30/16 10:15 Dose: 200 mg Budesonide (Pulmicort Respules) 0.25 mg INH RQ12 REPLACED BY [facility] Last Admin: 09/30/16 08:46 Dose: 0.25 mg Capsaicin (Trixaicin) 0 gm TOP TID PRN PRN Reason: Pain, moderate (4-7) Last Admin: 09/29/16 20:46 Dose: 60 gm Diltiazem HCl (Cardizem Cd) 240 mg PO DAILY REPLACED BY [facility] Last Admin: 09/30/16 10:14 Dose: 240 mg Docusate Sodium (Colace) 100 mg PO DAILY REPLACED BY [facility] Last Admin: 09/30/16 10:15 Dose: 100 mg Epoetin Eddie (Procrit) 10,000 unit SC MWF REPLACED BY [facility] Last Admin: 09/29/16 14:30 Dose: Not Given Ferric Sodium Gluconate Complex (Ferrlecit) 125 mg IVPB DAILY REPLACED BY [facility] Stop: 10/04/16 11:16 Last Admin: 09/30/16 10:15 Dose: 125 mg Lactated Ringer's (Lactated Ringer's 500ml) 500 mls @ 75 mls/hr IV .Q6H40M REPLACED BY [facility] Last Admin: 09/29/16 20:44 Dose: 75 mls/hr Sodium Chloride (Sodium Chloride 0.9%) 1,000 mls @ 75 mls/hr IV .[id number] REPLACED BY [facility] Stop: 09/30/16 13:00 Last Admin: 09/30/16 05:15 Dose: 75 mls/hr Insulin Aspart (Novolog) 0 unit SC ACHS REPLACED BY [facility] PRN Reason: Protocol Last Admin: 09/30/16 08:24 Dose: Not Given Lactulose (Enulose) 20 gm PO HS REPLACED BY [facility] Last Admin: 09/29/16 21:01 Dose: 20 gm Levothyroxine Sodium (Synthroid) 75 mcg PO DAILY@0630 REPLACED BY [facility] Last Admin: 09/30/16 05:47 Dose: 75 mcg Pantoprazole Sodium (Protonix Ec Tab) 20 mg PO DAILY REPLACED BY [facility] Last Admin: 09/30/16 10:45 Dose: 20 mg - Labs Labs: 09/30/16 08:50 09/30/16 08:50 PT 11.5 SECONDS (9.7-12.2) 09/26/16 03:19 INR 1.0 09/26/16 03:19 APTT 31 SECONDS (21-34) 09/26/16 03:19 - Constitutional Appears: No Acute Distress - Head Exam Head Exam: ATRAUMATIC, NORMOCEPHALIC - Eye Exam Eye Exam: EOMI, PERRL - Neck Exam Neck Exam: absent: Lymphadenopathy, Thyromegaly - Respiratory Exam Respiratory Exam: NORMAL BREATHING PATTERN. absent: Rales, Rhonchi, Wheezes - Cardiovascular Exam Cardiovascular Exam: REGULAR RHYTHM, +S1, +S2. absent: Gallop, Rubs, Murmur - GI/Abdominal Exam GI & Abdominal Exam: Soft, Normal Bowel Sounds. absent: Tenderness, Mass, Organomegaly - Rectal Exam Rectal Exam: Deferred - Extremities Exam Extremities Exam: absent: Calf Tenderness, Pedal Edema Assessment and Plan (1) Occult gastrointestinal hemorrhage Assessment & Plan: Patient has persistent heme-positive stools and melena. The attempts at evaluating the small bowel for a source of the bleeding have been non- diagnostic. Patient is currently receiving iron infusions. Consider double balloon enteroscopy. Status: Acute
--- NOTE | 2016-10-01 06:51 | CP.PCM.PN ---
Subjective - Date & Time of Evaluation Date of Evaluation: 10/01/16 Time of Evaluation: 06:51 Objective - Vital Signs/Intake and Output Vital Signs (last 24 hours): Temp Pulse Resp BP Pulse Ox 98.1 F 64 20 102/56 L 98 09/30/16 23:20 09/30/16 23:20 09/30/16 23:20 09/30/16 23:20 09/30/16 23:20 - Medications Medications: Current Medications Acetaminophen (Tylenol 325mg Tab) 650 mg PO Q6 PRN PRN Reason: Headache Last Admin: 09/27/16 05:57 Dose: 650 mg Amiodarone HCl (Cordarone) 200 mg PO DAILY [facility] Last Admin: 09/30/16 10:15 Dose: 200 mg Budesonide (Pulmicort Respules) 0.25 mg INH RQ12 [facility] Last Admin: 09/30/16 20:34 Dose: 0.25 mg Capsaicin (Trixaicin) 0 gm TOP TID PRN PRN Reason: Pain, moderate (4-7) Last Admin: 09/29/16 20:46 Dose: 60 gm Diltiazem HCl (Cardizem Cd) 240 mg PO DAILY [facility] Last Admin: 09/30/16 10:14 Dose: 240 mg Docusate Sodium (Colace) 100 mg PO DAILY [facility] Last Admin: 09/30/16 10:15 Dose: 100 mg Epoetin Eddie (Procrit) 10,000 unit SC MWF [facility] Last Admin: 09/29/16 14:30 Dose: Not Given Ferric Sodium Gluconate Complex (Ferrlecit) 125 mg IVPB DAILY [facility] Stop: 10/04/16 11:16 Last Admin: 09/30/16 10:15 Dose: 125 mg Lactated Ringer's (Lactated Ringer's 500ml) 500 mls @ 75 mls/hr IV .Q6H40M [facility] Last Admin: 09/29/16 20:44 Dose: 75 mls/hr Insulin Aspart (Novolog) 0 unit SC ACHS [facility] PRN Reason: Protocol Last Admin: 09/30/16 21:56 Dose: Not Given Lactulose (Enulose) 20 gm PO HS [facility] Last Admin: 09/30/16 21:56 Dose: 20 gm Levothyroxine Sodium (Synthroid) 75 mcg PO DAILY@0630 [facility] Last Admin: 09/30/16 05:47 Dose: 75 mcg Pantoprazole Sodium (Protonix Ec Tab) 20 mg PO DAILY [facility] Last Admin: 09/30/16 10:45 Dose: 20 mg - Labs Labs: 09/30/16 08:50 09/30/16 08:50 PT 11.5 SECONDS (9.7-12.2) 09/26/16 03:19 INR 1.0 09/26/16 03:19 APTT 31 SECONDS (21-34) 09/26/16 03:19
[2016-10-01] MEDS: Budesonide 0.25 mg/2 ml Inhal Susp UD INH SCH ×2 (08:07→20:26)
[2016-10-01] MEDS: (Novolog) Insulin Aspart, Recombinant 100 u/ml 10 ml vial SC SCH ×4 (08:32→21:50)
--- NOTE | 2016-10-01 08:42 | CP.PCM.PN ---
Subjective - Date & Time of Evaluation Date of Evaluation: 10/01/16 Time of Evaluation: 08:30 - Subjective Subjective: Patient was seen and examined by me. She was sitting up at bedside. She only ate 50% of breakfast again saying the food did not appeal to her. No nausea, no vommitting. Reported very minimal abdominal pain. She said had another small BM and the color was not as dark as before. Yesterday Hgb was 10.6, she has had 5 units of PRBCs since admission with Hgb of 3.4 The CTA of the abdomen / pelvis was done, but still pending the official read. Per GI may need further outpatient work up double balloon enteroscopy With reguard to history of atrial fibrillation, on telemetry review NSR in the 60s to 70 range. As mentioned before she is off all anticoagulation and on rate control medications. Will need PT/OT eval. She says she feels pretty weak when walking. Per nursing she has been observed walking however slowly. Objective - Vital Signs/Intake and Output Vital Signs (last 24 hours): Temp Pulse Resp BP Pulse Ox 98.1 F 64 20 102/56 L 98 09/30/16 23:20 09/30/16 23:20 09/30/16 23:20 09/30/16 23:20 09/30/16 23:20 - Medications Medications: Current Medications Acetaminophen (Tylenol 325mg Tab) 650 mg PO Q6 PRN PRN Reason: Headache Last Admin: 09/27/16 05:57 Dose: 650 mg Amiodarone HCl (Cordarone) 200 mg PO DAILY [facility] Last Admin: 09/30/16 10:15 Dose: 200 mg Budesonide (Pulmicort Respules) 0.25 mg INH RQ12 [facility] Last Admin: 10/01/16 08:07 Dose: 0.25 mg Capsaicin (Trixaicin) 0 gm TOP TID PRN PRN Reason: Pain, moderate (4-7) Last Admin: 09/29/16 20:46 Dose: 60 gm Diltiazem HCl (Cardizem Cd) 240 mg PO DAILY [facility] Last Admin: 09/30/16 10:14 Dose: 240 mg Docusate Sodium (Colace) 100 mg PO DAILY [facility] Last Admin: 09/30/16 10:15 Dose: 100 mg Epoetin Eddie (Procrit) 10,000 unit [facility] Last Admin: 09/29/16 14:30 Dose: Not Given Ferric Sodium Gluconate Complex (Ferrlecit) 125 mg IVPB DAILY [facility] Stop: 10/04/16 11:16 Last Admin: 09/30/16 10:15 Dose: 125 mg Lactated Ringer's (Lactated Ringer's 500ml) 500 mls @ 75 mls/hr IV .Q6H40M [facility] Last Admin: 09/29/16 20:44 Dose: 75 mls/hr Insulin Aspart (Novolog) 0 unit SC ACHS [facility] PRN Reason: Protocol Last Admin: 10/01/16 08:32 Dose: Not Given Lactulose (Enulose) 20 gm PO HS [facility] Last Admin: 09/30/16 21:56 Dose: 20 gm Levothyroxine Sodium (Synthroid) 75 mcg PO DAILY@0630 [facility] Last Admin: 09/30/16 05:47 Dose: 75 mcg Pantoprazole Sodium (Protonix Ec Tab) 20 mg PO DAILY [facility] Last Admin: 09/30/16 10:45 Dose: 20 mg - Labs Labs: 09/30/16 08:50 09/30/16 08:50 PT 11.5 SECONDS (9.7-12.2) 09/26/16 03:19 INR 1.0 09/26/16 03:19 APTT 31 SECONDS (21-34) 09/26/16 03:19 - Constitutional Appears: Non-toxic, No Acute Distress - Head Exam Head Exam: NORMAL INSPECTION, NORMOCEPHALIC - Eye Exam Eye Exam: EOMI - ENT Exam ENT Exam: Mucous Membranes Moist - Respiratory Exam Respiratory Exam: Clear to Ausculation Bilateral, NORMAL BREATHING PATTERN - Cardiovascular Exam Cardiovascular Exam: REGULAR RHYTHM. absent: Irregular Rhythm - GI/Abdominal Exam GI & Abdominal Exam: Soft, Normal Bowel Sounds - Neurological Exam Neurological Exam: Alert, Awake, CN II-XII Intact Neuro motor strength exam: Left Upper Extremity: 4, Right Upper Extremity: 4, Left Lower Extremity: 4, Right Lower Extremity: 4 - Psychiatric Exam Psychiatric exam: Normal Affect, Normal Mood - Skin Skin Exam: Dry, Normal Color, Warm Assessment and Plan - Assessment and Plan (Free Text) Assessment: Anemia from unclear GI source Assessment and Plan: 10/01: If Hgb is stable today and tomorrow then probably can DC soon. She will need PT/OT eval as she has been bed bound for some time now and probably needs rehab. Per GI will need further outpatient work up, double ballon enteroscopy. The anemia is also made worse due to her CKD as well as hypothyroidism. 09/30: Pending CBC results this morning. She reports she did have a small BM this morning and it appeared dark to her. She had enteroscopy yesterday. She is getting IV ferreclit as well as Procrit. s/p 5 units PRBC. Monitor for signs of fluid overload. Patient with hx of 2 weeks of dark stools; Still with some scant bleeding per rectum. Stool occult positive:Continue to monitor BMs. F/U GI (Dr. Reyes) EGD 09/26: Z line regular, LA grade A esophagitis, small hiatal hernia. Anemia can be further exacerbated by decreased kidney function. Cr and BUN elevated Status: Acute Acute kidney injury on chronic CKD Assessment and Plan: 10/01: Improving. BUN and Cr trending down, Cr 1.4 yesterday 09/30: Doing better, Procrit. Renal US- b/l cortical thinning, no calculus appreciated or hydronephrosis, b/l renal/ parapelvic cysts. refer to complete report. F/U 24 hr Urine collection F/U Nephro ( Dr. Bill group recommendations) as noted above Nephrology recommendations- IV iron , Protein studies resulted; SPEP- M spike noted may require further analysis. Status: Acute History of atrial fibrillation Assessment and Plan: 10/01: She's been NSR on review of telemetry yesterday and today. As mentioned before not on anticoagulation due to the severe anemia. She 09/30: Patient NSR currently on electronic device monitor. Rate 60s to 70s. Because of the anemia currently not on anticoagulation. Rate control with amiodarone and cardizem On telemetry monitoring: Rate and rhythm controlled F/U Cardiology ( Dr. Zelaya) recommendations Prior Echo from 2016 with EF 83%, LV normal size, borderline concentric left ventricular hypertrophy with normal LVEF, mitral valve leaflets are thickened and calcified, moderate to severe pulm HTN noted. Status: Acute Diabetes Assessment and Plan: 09/30: Doing well, reccent accuchecks have been 140s to 160s. Not on glipizide at this time Medium dose ISS Status: Acute Hypothyroidism Assessment and Plan: 10/01: Will recheck the TSH, T3 T4 today. 09/30: Doing ok, in the future needs recheck of TSH T3 T4. Abnormal thyroid studies Begin Levothyroxine 75 mcg daily HTN (hypertension) Assessment and Plan: 09/30: recent systolic numbers have been in the 120s and 130s Normotensive at this time. Cont to monitor. Status: Acute Back Pain Assessment and Plan: Lidocaine patch given x1 Patient has received capsaicin cream in the past during June admission. Will consider use if Lidocaine patch does not provide relief. History of gastroesophageal reflux (GERD) Assessment and Plan: Protonix 20 mg PO daily Prophylactic measure Assessment and Plan: Chemical anticoagulation contraindicated due to suspected GI bleed SCDs contraindicated due to b/l LE swelling PPI 20 mg daily Fall risk protocol
[2016-10-01 09:30] LABS: BASO # 0.1 K/uL (0.0-0.2); BASO % 0.7 % (0.0-2.0); EOS # 0.2 K/uL (0.0-0.7); EOS % 1.8 % (0.0-4.0); HEMATOCRIT 31.8 % (34.0-47.0); LYMPH % 16.9 % (20.0-40.0); MEAN CELL VOLUME 95.1 fL (81.0-99.0); MEAN CORPUSCULAR HEMOGLOBIN 30.6 pg (27.0-31.0); MEAN CORPUSCULAR HGB CONC 32.2 g/dL (33.0-37.0); MEAN PLATELET VOLUME 8.4 fL (7.2-11.7); MONO # 0.5 K/uL (0.0-0.8); MONO % 4.4 % (0.0-10.0); NRBC % 0.2 % (0.0-2.0); PLATELET COUNT 226 K/uL (130-400); RED CELL DISTRIBUTION WIDTH 17.2 % (11.5-14.5); WHITE BLOOD COUNT 11.8 K/uL (4.8-10.8)
[2016-10-01 09:39] LABS: POTASSIUM 4.5 mmol/L (3.6-5.2)
[2016-10-01 09:41] LABS: BILIRUBIN,TOTAL 0.6 mg/dL (0.2-1.3)
[2016-10-01 09:42] LABS: ALB/GLOB RATIO 1.6 (1.0-2.1); CALCIUM 8.9 mg/dl (8.6-10.4); PHOSPHOROUS 4.3 mg/dL (2.5-4.5); TOTAL PROTEIN 6.3 g/dL (6.3-8.3)
[2016-10-01] MEDS: diltiaZEM 240 mg/24 Hours CD Cap PO SCH (10:30)
[2016-10-01] MEDS: Pantoprazole 20 mg EC Tab PO SCH (10:31)
[2016-10-01] MEDS: Ferric Sodium Gluconat Complex 62.5 mg/5 ml Vial IVPB SCH (10:31)
[2016-10-01 11:23] LABS: BASOPHIL 1 % (0-2); EOSINOPHIL 1 % (0-4); METAMYELOCYTE 2 % (0-0); MYELOCYTE 1 % (0-0); NEUTROPHIL 67 % (50-75); NUCLEATED RED BLOOD CELL 1 % (0-0); TOTAL CELLS COUNTED 100
--- NOTE | 2016-10-01 11:33 | CP.PCM.PN ---
Subjective - Date & Time of Evaluation Date of Evaluation: 10/01/16 Time of Evaluation: 11:30 - Subjective Subjective: Patient complains of facial swelling, though no swelling is apparent to me or to the family. She denies having nausea, vomiting, and abdominal pain. She has one bowel movement which was slightly psych tech in color than before. The CT Angiogram was performed but is not yet read. Objective - Vital Signs/Intake and Output Vital Signs (last 24 hours): Temp Pulse Resp BP Pulse Ox 97.9 F 79 20 128/62 97 10/01/16 09:12 10/01/16 09:12 10/01/16 09:12 10/01/16 09:12 10/01/16 09:12 - Medications Medications: Current Medications Acetaminophen (Tylenol 325mg Tab) 650 mg PO Q6 PRN PRN Reason: Headache Last Admin: 09/27/16 05:57 Dose: 650 mg Amiodarone HCl (Cordarone) 200 mg PO DAILY REPLACED BY [facility] Last Admin: 10/01/16 10:31 Dose: 200 mg Budesonide (Pulmicort Respules) 0.25 mg INH RQ12 REPLACED BY [facility] Last Admin: 10/01/16 08:07 Dose: 0.25 mg Capsaicin (Trixaicin) 0 gm TOP TID PRN PRN Reason: Pain, moderate (4-7) Last Admin: 09/29/16 20:46 Dose: 60 gm Diltiazem HCl (Cardizem Cd) 240 mg PO DAILY REPLACED BY [facility] Last Admin: 10/01/16 10:30 Dose: 240 mg Docusate Sodium (Colace) 100 mg PO DAILY REPLACED BY [facility] Last Admin: 10/01/16 10:31 Dose: 100 mg Epoetin Eddie (Procrit) 10,000 unit SC MWF REPLACED BY [facility] Last Admin: 09/29/16 14:30 Dose: Not Given Ferric Sodium Gluconate Complex (Ferrlecit) 125 mg IVPB DAILY REPLACED BY [facility] Stop: 10/04/16 11:16 Last Admin: 10/01/16 10:31 Dose: 125 mg Insulin Aspart (Novolog) 0 unit SC ACHS REPLACED BY [facility] PRN Reason: Protocol Last Admin: 10/01/16 08:32 Dose: Not Given Lactulose (Enulose) 20 gm PO HS REPLACED BY [facility] Last Admin: 09/30/16 21:56 Dose: 20 gm Levothyroxine Sodium (Synthroid) 75 mcg PO DAILY@0630 REPLACED BY [facility] Last Admin: 09/30/16 05:47 Dose: 75 mcg Pantoprazole Sodium (Protonix Ec Tab) 20 mg PO DAILY REPLACED BY [facility] Last Admin: 10/01/16 10:31 Dose: 20 mg - Labs Labs: 10/01/16 09:13 10/01/16 09:13 PT 11.5 SECONDS (9.7-12.2) 09/26/16 03:19 INR 1.0 09/26/16 03:19 APTT 31 SECONDS (21-34) 09/26/16 03:19 - Constitutional Appears: No Acute Distress - Eye Exam Eye Exam: EOMI, PERRL - Neck Exam Neck Exam: absent: Lymphadenopathy, Thyromegaly - Respiratory Exam Respiratory Exam: NORMAL BREATHING PATTERN. absent: Rales, Rhonchi, Wheezes - Cardiovascular Exam Cardiovascular Exam: +S1, +S2. absent: Gallop, Rubs, Murmur - GI/Abdominal Exam GI & Abdominal Exam: Soft, Normal Bowel Sounds. absent: Tenderness, Mass, Organomegaly - Rectal Exam Rectal Exam: absent: Deferred - Extremities Exam Extremities Exam: absent: Calf Tenderness, Pedal Edema Assessment and Plan (1) Occult gastrointestinal hemorrhage Assessment & Plan: Patient states that the stools are somewhat less dark. the HGB is 10.2, down from 10.6. The CT Angiogram showed no gross lesions to my reading. Plan is for deep enteroscopy with double-balloon scope as an outpatient. Status: Acute
--- NOTE | 2016-10-02 00:04 | CT ---
EXAM: CT Abdomen and Pelvis With Intravenous Contrast CLINICAL HISTORY: 81 years old, female; Condition or disease; Other: Suspected gi bleed; Additional info: Gi bleed suspected in small bowel TECHNIQUE: Axial computed tomography images of the abdomen and pelvis with intravenous contrast during the arterial phase of enhancement. This CT exam was performed using one or more of the following dose reduction techniques: automated exposure control, adjustment of the mA and/or kV according to patient size, and/or use of iterative reconstruction technique. Coronal and sagittal reformatted images were created and reviewed. CONTRAST: 100 mL of [id number] administered intravenously. EXAM DATE/TIME: 09/30/2016 11:00 AM COMPARISON: CR - ABDOMEN (FLAT PLATE) 1VIEW 06/28/2016 8:05:25 PM FINDINGS: Lower thorax: The heart is mildly enlarged.There is calcification of the mitral annulus. There is small bilateral pleural effusions. There are patchy groundglass opacities at the lung bases. There is minimal nodular pleural thickening on the right base. There is a hiatal hernia. VASCULATURE: Aorta: Aorta is mildly ectatic. There is scattered atherosclerotic calcifications. There is perfusion of all major abdominal aortic branches. There is perfusion of iliac vessels bilaterally. Celiac trunk and mesenteric arteries: There are small plaques at the origins of the celiac and superior mesenteric arteries. There is no plaque at the origin of the inferior mesenteric artery. Renal arteries: Renal arteries are unremarkable Iliac arteries: see above ABDOMEN: Liver: unremarkable Gallbladder and bile ducts: Gallbladder is distended. There are multiple calcified stones. Common bile duct is unremarkable. Pancreas: unremarkable Spleen: unremarkable Adrenals: There is nodular adrenal thickening bilaterally. Kidneys and ureters: There is a peripheral right renal cyst. There are bilateral parapelvic cysts.There is no pelvocaliectasis or ureterectasis. Stomach and bowel: Stomach is partially distended. No gastric bleeding site is identified. Rotation is normal. Small bowel is partially distended with air and fluid. No focal bleeding site is identified. Terminal ileum is unremarkable. Appendix is unremarkable.Colon is incompletely distended which limits evaluation.There is diverticulosis. No colonic bleeding site is identified. Appendix: unremarkable PELVIS: Bladder: unremarkable Reproductive: There are multiple partially calcified uterine fibroids. Uterine contours are lobular.Adnexa are unremarkable. ABDOMEN and PELVIS: Intraperitoneal space: There is a small amount of free fluid in the pelvis. There is no free air.. Bones/joints: There are degenerative changes in the osseus structures. There is L5 spondylolysis with grade 1-2 spondylolisthesis L5 on S1. There is ankylosis L5-S1. There is disc base narrowing L45. Soft tissues: There is a small fat-containing umbilical hernia Lymph nodes: There is no pathologic adenopathy. IMPRESSION: No GI bleeding site identified; small amount of free fluid; gallstones; fibroid uterus
[2016-10-02 07:30] LABS: BASO # 0.1 K/uL (0.0-0.2); EOS # 0.2 K/uL (0.0-0.7); EOS % 1.6 % (0.0-4.0); HEMATOCRIT 33.2 % (34.0-47.0); LYMPH # 2.3 K/uL (1.0-4.3); LYMPH % 18.6 % (20.0-40.0); MEAN CELL VOLUME 94.8 fL (81.0-99.0); MEAN CORPUSCULAR HGB CONC 31.6 g/dL (33.0-37.0); MEAN PLATELET VOLUME 8.2 fL (7.2-11.7); MONO # 0.6 K/uL (0.0-0.8); MONO % 5.1 % (0.0-10.0); NRBC % 0.6 % (0.0-2.0); RED CELL DISTRIBUTION WIDTH 17.2 % (11.5-14.5); WHITE BLOOD COUNT 12.3 K/uL (4.8-10.8)
[2016-10-02 07:37] LABS: POTASSIUM 5.2 mmol/L (3.6-5.2)
[2016-10-02 07:39] LABS: ALB/GLOB RATIO 1.5 (1.0-2.1); BILIRUBIN,TOTAL 0.5 mg/dL (0.2-1.3); TOTAL PROTEIN 6.3 g/dL (6.3-8.3)
[2016-10-02 07:40] LABS: CALCIUM 9.2 mg/dl (8.6-10.4)
[2016-10-02 07:49] LABS: FT3 2.19 pg/mL (2.77-5.27)
[2016-10-02 07:51] VITALS: O2SAT 96
[2016-10-02] MEDS: (Novolog) Insulin Aspart, Recombinant 100 u/ml 10 ml vial SC SCH ×2 (08:03→11:46)
[2016-10-02 08:37] LABS: T4 2.64 ug/dL (5.5-11.0)
[2016-10-02] MEDS: EPOETIN ALFA 10,000 UNIT/ML ML SC SCH (09:21)
[2016-10-02] MEDS: Budesonide 0.25 mg/2 ml Inhal Susp UD INH SCH (10:08)
[2016-10-02] MEDS: Ferric Sodium Gluconat Complex 62.5 mg/5 ml Vial IVPB SCH (10:09)
[2016-10-02] MEDS: Pantoprazole 20 mg EC Tab PO SCH (10:09)
[2016-10-02] MEDS: diltiaZEM 240 mg/24 Hours CD Cap PO SCH (10:09)
--- NOTE | 2016-10-02 11:08 | CP.PCM.PN ---
Subjective - Date & Time of Evaluation Date of Evaluation: 10/02/16 Time of Evaluation: 11:07 - Subjective Subjective: comfortable GI eval noted hgb stable creatinine at baseline Objective - Vital Signs/Intake and Output Vital Signs (last 24 hours): Temp Pulse Resp BP Pulse Ox 98.3 F 66 18 125/61 96 10/02/16 07:35 10/02/16 07:50 10/02/16 07:35 10/02/16 07:35 10/02/16 07:35 Intake and Output: 10/02/16 10/02/16 06:59 18:59 Intake Total 300 Balance 300 - Medications Medications: Current Medications Acetaminophen (Tylenol 325mg Tab) 650 mg PO Q6 PRN PRN Reason: Headache Last Admin: 09/27/16 05:57 Dose: 650 mg Amiodarone HCl (Cordarone) 200 mg PO DAILY [facility] Last Admin: 10/02/16 10:09 Dose: 200 mg Budesonide (Pulmicort Respules) 0.25 mg INH RQ12 [facility] Last Admin: 10/02/16 10:08 Dose: 0.25 mg Capsaicin (Trixaicin) 0 gm TOP TID PRN PRN Reason: Pain, moderate (4-7) Last Admin: 09/29/16 20:46 Dose: 60 gm Diltiazem HCl (Cardizem Cd) 240 mg PO DAILY [facility] Last Admin: 10/02/16 10:09 Dose: 240 mg Docusate Sodium (Colace) 100 mg PO DAILY [facility] Last Admin: 10/02/16 10:09 Dose: 100 mg Epoetin Eddie (Procrit) 10,000 unit SC MWF [facility] Last Admin: 10/02/16 09:21 Dose: 10,000 unit Ferric Sodium Gluconate Complex (Ferrlecit) 125 mg IVPB DAILY [facility] Stop: 10/04/16 11:16 Last Admin: 10/02/16 10:09 Dose: 125 mg Insulin Aspart (Novolog) 0 unit SC ACHS [facility] PRN Reason: Protocol Last Admin: 10/02/16 08:03 Dose: 2 unit Lactulose (Enulose) 20 gm PO HS [facility] Last Admin: 10/01/16 21:06 Dose: 20 gm Levothyroxine Sodium (Synthroid) 75 mcg PO DAILY@0630 [facility] Last Admin: 09/30/16 05:47 Dose: 75 mcg Pantoprazole Sodium (Protonix Ec Tab) 20 mg PO DAILY [facility] Last Admin: 10/02/16 10:09 Dose: 20 mg - Labs Labs: 10/02/16 06:54 10/02/16 06:54 PT 11.5 SECONDS (9.7-12.2) 09/26/16 03:19 INR 1.0 09/26/16 03:19 APTT 31 SECONDS (21-34) 09/26/16 03:19 - Constitutional Appears: Non-toxic, No Acute Distress, Chronically Ill - Head Exam Head Exam: NORMAL INSPECTION - Eye Exam Eye Exam: Normal appearance - ENT Exam ENT Exam: Mucous Membranes Moist, Normal Exam - Neck Exam Neck Exam: Normal Inspection - Respiratory Exam Respiratory Exam: Clear to Ausculation Bilateral, NORMAL BREATHING PATTERN - Cardiovascular Exam Cardiovascular Exam: REGULAR RHYTHM, RRR - GI/Abdominal Exam GI & Abdominal Exam: Distended, Soft - Extremities Exam Extremities Exam: Normal Inspection Assessment and Plan (1) Acute kidney injury Status: Acute (2) Diabetes Status: Acute (3) HTN (hypertension) Status: Acute (4) Symptomatic anemia Status: Acute - Assessment and Plan (Free Text) Assessment: gi bleed, GI followup outpt ckd 3 stable renal sagastume. avoid nephotoxic agents follow spep outpatient follow up on dc
--- NOTE | 2016-10-02 12:21 | CP.PCM.PN ---
Subjective - Date & Time of Evaluation Date of Evaluation: 10/02/16 Time of Evaluation: 12:18 - Subjective Subjective: Pt seen and examined at bedside. Pt is doing well today with no complaints and overnight events. Pt states she will be going home today. Pt denies CP, SOB, N/V /D. Objective - Vital Signs/Intake and Output Vital Signs (last 24 hours): Temp Pulse Resp BP Pulse Ox 98.3 F 66 18 125/61 96 10/02/16 07:35 10/02/16 07:50 10/02/16 07:35 10/02/16 07:35 10/02/16 07:35 Intake and Output: 10/02/16 10/02/16 06:59 18:59 Intake Total 300 Balance 300 - Medications Medications: Current Medications Acetaminophen (Tylenol 325mg Tab) 650 mg PO Q6 PRN PRN Reason: Headache Last Admin: 09/27/16 05:57 Dose: 650 mg Amiodarone HCl (Cordarone) 200 mg PO DAILY [facility] Last Admin: 10/02/16 10:09 Dose: 200 mg Budesonide (Pulmicort Respules) 0.25 mg INH RQ12 [facility] Last Admin: 10/02/16 10:08 Dose: 0.25 mg Capsaicin (Trixaicin) 0 gm TOP TID PRN PRN Reason: Pain, moderate (4-7) Last Admin: 09/29/16 20:46 Dose: 60 gm Diltiazem HCl (Cardizem Cd) 240 mg PO DAILY [facility] Last Admin: 10/02/16 10:09 Dose: 240 mg Docusate Sodium (Colace) 100 mg PO DAILY [facility] Last Admin: 10/02/16 10:09 Dose: 100 mg Epoetin Eddie (Procrit) 10,000 unit SC MWF [facility] Last Admin: 10/02/16 09:21 Dose: 10,000 unit Ferric Sodium Gluconate Complex (Ferrlecit) 125 mg IVPB DAILY [facility] Stop: 10/04/16 11:16 Last Admin: 10/02/16 10:09 Dose: 125 mg Insulin Aspart (Novolog) 0 unit SC ACHS [facility] PRN Reason: Protocol Last Admin: 10/02/16 11:46 Dose: 2 unit Lactulose (Enulose) 20 gm PO HS [facility] Last Admin: 10/01/16 21:06 Dose: 20 gm Levothyroxine Sodium (Synthroid) 75 mcg PO DAILY@0630 [facility] Last Admin: 09/30/16 05:47 Dose: 75 mcg Pantoprazole Sodium (Protonix Ec Tab) 20 mg PO DAILY [facility] Last Admin: 10/02/16 10:09 Dose: 20 mg - Labs Labs: 10/02/16 06:54 10/02/16 06:54 PT 11.5 SECONDS (9.7-12.2) 09/26/16 03:19 INR 1.0 09/26/16 03:19 APTT 31 SECONDS (21-34) 09/26/16 03:19 - Constitutional Appears: Well, No Acute Distress - Head Exam Head Exam: ATRAUMATIC, NORMAL INSPECTION - Respiratory Exam Respiratory Exam: Clear to Ausculation Bilateral, NORMAL BREATHING PATTERN. absent: Rhonchi, Wheezes - Cardiovascular Exam Cardiovascular Exam: RRR, +S1, +S2 - GI/Abdominal Exam GI & Abdominal Exam: Soft, Normal Bowel Sounds. absent: Tenderness - Extremities Exam Extremities Exam: Normal Inspection. absent: Pedal Edema - Neurological Exam Neurological Exam: Alert, Awake, Oriented x3 - Skin Skin Exam: Intact, Normal Color, Warm Assessment and Plan (1) History of atrial fibrillation Assessment & Plan: Rate and rhythm controlled at this time Pt will be discharged today Continue current medical regimen Follow up with Dr. Zelaya in office within 1 month Status: Acute
[2016-10-02 15:42] LABS: GAMMA GLOBULIN 49.6 Relative %
[2016-10-02 16:22] VITALS: BP 140/70; PULSE 70; RESP 22; TEMP 98.6
--- NOTE | 2016-10-02 19:23 | CP.PCM.DIS ---
<Amanda Springer Cara - Last Filed: 10/02/16 19:21> Provider - Provider Date of Admission: 09/25/16 07:49 Attending physician: Dr. Buenrostro Primary care physician: Dr. Winkler Consults: GI- Dr. Reyes Cardio- Dr. Zelaya Nephro- Dr. Bill Time Spent in preparation of Discharge (in minutes): 45 Diagnosis - Discharge Diagnosis (1) Anemia Status: Acute Comment: Per GI will need further outpatient work up, double ballon enteroscopy (2) Acute kidney injury Status: Acute Comment: improved renal function, f/u with Dr. Bill group as outpatient (3) History of atrial fibrillation Status: Acute Comment: not on anticoagulation due to the severe anemia. Rate control with amiodarone and cardizem. Patient to follow up with cardio as outpatient. (4) Hypothyroidism Status: Acute Comment: Patient found to have abnormal thyroid studies. Started on Levothyroxine 75mcg daily. Follow up as outpatient with PMD. (5) Diabetes Status: Chronic Comment: Continue home meds. (6) HTN (hypertension) Status: Chronic Comment: Continue home meds. Hospital Course - Lab Results Lab Results: Most Recent Lab Values WBC 12.3 K/uL (4.8-10.8) H 10/02/16 06:54 RBC 3.50 Mil/uL (3.80-5.20) L 10/02/16 06:54 Hgb 10.5 g/dL (11.0-16.0) L 10/02/16 06:54 Hct 33.2 % (34.0-47.0) L 10/02/16 06:54 MCV 94.8 fL (81.0-99.0) 10/02/16 06:54 MCH 30.0 pg (27.0-31.0) 10/02/16 06:54 MCHC 31.6 g/dL (33.0-37.0) L 10/02/16 06:54 RDW 17.2 % (11.5-14.5) H 10/02/16 06:54 Plt Count 233 K/uL (130-400) 10/02/16 06:54 MPV 8.2 fL (7.2-11.7) 10/02/16 06:54 Neut % (Auto) 73.7 % (50.0-75.0) 10/02/16 06:54 Lymph % (Auto) 18.6 % (20.0-40.0) L 10/02/16 06:54 [place] % (Auto) 5.1 % (0.0-10.0) 10/02/16 06:54 Eos % (Auto) 1.6 % (0.0-4.0) 10/02/16 06:54 Baso % (Auto) 1.0 % (0.0-2.0) 10/02/16 06:54 Neut # 9.1 K/uL (1.8-7.0) H 10/02/16 06:54 Lymph # 2.3 K/uL (1.0-4.3) 10/02/16 06:54 [place] # 0.6 K/uL (0.0-0.8) 10/02/16 06:54 Eos # 0.2 K/uL (0.0-0.7) 10/02/16 06:54 Baso # 0.1 K/uL (0.0-0.2) 10/02/16 06:54 Neutrophils % (Manual) 67 % (50-75) 10/01/16 09:13 Band Neutrophils % 8 % (0-2) H 10/01/16 09:13 Lymphocytes % (Manual) 18 % (20-40) L 10/01/16 09:13 Monocytes % (Manual) 2 % (0-10) 10/01/16 09:13 Eosinophils % (Manual) 1 % (0-4) 10/01/16 09:13 Basophils % (Manual) 1 % (0-2) 10/01/16 09:13 Metamyelocytes % 2 % (0-0) H 10/01/16 09:13 Myelocytes % 1 % (0-0) H 10/01/16 09:13 Nucleated RBC % 1 % (0-0) H 10/01/16 09:13 Platelet Estimate Normal (NORMAL) 10/01/16 09:13 Basophilic Stippling Slight 09/29/16 07:56 Anisocytosis (manual) Slight 10/01/16 09:13 Ovalocytes Slight 10/01/16 09:13 Retic Count 8.1 % (0.5-1.5) H 09/25/16 11:12 Haptoglobin 115 mg/dL (43-212) 09/25/16 11:12 PT 11.5 SECONDS (9.7-12.2) 09/26/16 03:19 INR 1.0 09/26/16 03:19 APTT 31 SECONDS (21-34) 09/26/16 03:19 Sodium 141 mmol/L (132-148) 10/02/16 06:54 Potassium 5.2 mmol/L (3.6-5.2) 10/02/16 06:54 Chloride 102 mmol/L (98-107) 10/02/16 06:54 Carbon Dioxide 31 mmol/L (22-30) H 10/02/16 06:54 Anion Gap 13 (10-20) 10/02/16 06:54 BUN 17 mg/dL (7-17) 10/02/16 06:54 Creatinine 1.4 MG/DL (0.7-1.2) H 10/02/16 06:54 Est GFR ( Amer) 44 10/02/16 06:54 Est GFR (Non-Af Amer) 36 10/02/16 06:54 POC Glucose (mg/dL) 167 mg/dL (65-110) H 10/02/16 11:32 Random Glucose 134 mg/dL (65-105) H 10/02/16 06:54 Hemoglobin A1c 5.7 % (4.2-6.5) 09/26/16 03:19 Calcium 9.2 mg/dl (8.6-10.4) 10/02/16 06:54 Phosphorus 4.3 mg/dL (2.5-4.5) 10/01/16 09:13 Magnesium 2.0 mg/dL (1.6-2.3) 10/01/16 09:13 Iron 55 ug/dL (37-170) 09/25/16 11:12 TIBC 385 ug/dL (250-450) 09/25/16 11:12 % Saturation 14.28 (20-55) L 09/25/16 11:12 Ferritin 23.3 ng/mL 09/25/16 11:12 Total Bilirubin 0.5 mg/dL (0.2-1.3) 10/02/16 06:54 AST 27 U/L (14-36) 10/02/16 06:54 ALT 25 U/L (9-52) 10/02/16 06:54 Alkaline Phosphatase 46 U/L (38-126) 10/02/16 06:54 Troponin I 0.0230 ng/mL (0.00-0.120) 09/25/16 06:35 NT-Pro-B Natriuret Pep 1690 pg/mL (0-900) H 09/25/16 06:35 Total Protein 6.3 g/dL (6.3-8.3) 10/02/16 06:54 Total Protein (PEP) 6.3 g/dL (6.1-8.1) 09/28/16 11:27 Albumin 3.8 g/dL (3.5-5.0) 10/02/16 06:54 Albumin (PEP) 3.8 g/dL (3.8-4.8) 09/28/16 11:27 Globulin 2.5 gm/dL (2.2-3.9) 10/02/16 06:54 Albumin/Globulin Ratio 1.5 (1.0-2.1) 10/02/16 06:54 Xqdij-9-Gzepmlqzm 3.2 Relative % 09/28/16 12:25 Axdss-6-Rfwdqssig 11.5 Relative % 09/28/16 12:25 Beta Globulins 8.8 Relative % 09/28/16 12:25 Hvyi-7-Rpftpfpu 0.4 g/dL (0.4-0.6) 09/28/16 11:27 Jerv-6-Jyrqeeop 0.3 g/dL (0.2-0.5) 09/28/16 11:27 Gamma Globulins 49.6 Relative % 09/28/16 12:25 Abnorm Protein Band 1 0.14 g/dL (None Detected) H 09/28/16 11:27 Abnorm Protein Band 2 TEST NOT PERFORMED 09/28/16 11:27 Abnorm Protein Band 3 TEST NOT PERFORMED 09/28/16 11:27 Triglycerides 163 mg/dL (0-149) H D 09/26/16 03:19 Cholesterol 148 mg/dL (0-199) 09/26/16 03:19 LDL Cholesterol Direct 81 mg/dL (0-129) 09/26/16 03:19 HDL Cholesterol 41 mg/dL (30-70) 09/26/16 03:19 Vitamin B12 > 1000 pg/mL (239-931) H 09/25/16 11:12 RBC Folate 1666 ng/mL RBC (>280) 09/25/16 11:12 Free T4 0.19 ng/dL (0.78-2.19) L 09/26/16 03:19 Thyroxine (T4) 2.64 ug/dL (5.5-11.0) L 10/02/16 06:54 Total T3 0.540 nmol/L (1.49-2.60) L 09/26/16 03:19 TSH 3rd Generation 61.30 mIU/L (0.46-4.68) H 09/26/16 03:19 Urine Color Yellow (YELLOW) 09/25/16 11:17 Urine Clarity Clear (Clear) 09/25/16 11:17 Urine pH 5.0 (5.0-8.0) 09/25/16 11:17 Ur Specific [place] 1.015 (1.003-1.030) 09/25/16 11:17 Urine Protein 1+ mg/dL (NEGATIVE) H 09/25/16 11:17 Urine Glucose (UA) Normal mg/dL (Normal) 09/25/16 11:17 Urine Ketones Negative mg/dL (NEGATIVE) 09/25/16 11:17 Urine Blood 2+ (NEGATIVE) H 09/25/16 11:17 Urine Nitrate Negative (NEGATIVE) 09/25/16 11:17 Urine Bilirubin Negative (NEGATIVE) 09/25/16 11:17 Urine Urobilinogen Normal mg/dL (0.2-1.0) 09/25/16 11:17 Ur Leukocyte Esterase Neg Roman/uL (Negative) 09/25/16 11:17 Urine WBC (Auto) 4 /hpf (0-5) 09/25/16 11:17 Urine RBC (Auto) 5 /hpf (0-3) H 09/25/16 11:17 Ur Squamous Epith Cells < 1 /hpf (0-5) 09/25/16 11:17 Urine Bacteria Rare (<OCC) 09/25/16 11:17 Urine Collection Time 24 HRS 09/26/16 14:32 Urine Total Volume 1450 mL 09/26/16 14:32 Urine Creatinine 1.26 g/L 09/28/16 12:25 Ur Creatinine 24 Hour 1.01 g/24 h (0.63-2.50) 09/28/16 12:25 Urine Microalbumin 264.6 mg/L (0.0-16.6) H 09/25/16 11:21 Ur Total Protein 24 Hr 1994 mg/24 h (<150) H 09/28/16 12:25 Protein/Creat Ratio 24h 1982 mg/g creat (</=84) H 09/28/16 12:25 Urine Total Protein 2493 mg/L (50-240) H 09/28/16 12:25 Ur Protein 24 Hr Calc 797.5 mg/24hr (42-225) H 09/26/16 14:32 Urine Albumin (PEP) 26.9 Relative % 09/28/16 12:25 Ur Protein Fractions See note 09/28/16 12:25 Stool Occult Blood Positive (NEGATIVE) H 09/26/16 18:40 SEUN & SPEP Interp See note 09/28/16 11:27 Blood Type B POSITIVE 09/25/16 06:24 Antibody Screen Negative 09/25/16 06:24 - Hospital Course Hospital Course: As per H&P "CC: weakness HPI: 81 year old female with PMHx significant for CHF, Anemia, DM, HTN, Atrial fibrillation, hepatitis C, GERD and asthma presents with complaints of weakness for one week duration. Patient was accompanied by brother bedside who stated that the patient lives with him. He stated that the patient actually fell in the bathroom prompting him to bring her in. It was noted that patient did not hit her head during the fall . Patient complains of a two week history of dark-black colored stools. She denies seeing miguel blood with bowel movements though. Patient was admitted a few months ago most recently for symptomatic anemia for which she was treated in patient at [facility]. Patient had a full workup at the time inclusive of EGD and colonoscopy which did not reveal a source of GI bleed. She admits to paresthesias in her fingertips bilaterally. Patient denies chest pain or palpitations, subjective fevers or chills, nausea, vomiting, diarrhea at this time." In the ED patient was found to have Hg of 3.6 and patient was transfused 3 units PRBC. Patient admitted to telemetry for acute anemia. Patient monitored closely for fluid overload. Occult blood was positive. GI consult placed, Dr. Reyes, saw and evaluated patient. EGD done 09/26 and showed Z line regular, LA grade A esophagitis, small hiatal hernia. Enteroscopy done 09/29 which showed no bleed. As per GI, patient will need further outpatient workup --double balloon enteroscopy. Patient also with iron deficiency and started on an iron supplement. Patient also found to have MARIA EUGENIA and Dr. Bill was consulted who ordered a renal U/S which showed b/l cortical thinning, no calculus appreciated or hydronephrosis, b/l renal/ parapelvic cysts. (see full report) SPEP done which showed-M spike which may require further analysis. Patient to follow up as outpatient with nephrology. Patient has history of a fib but was noted to be in NSR as per telemetry throughout hospital stay. Patient not on anticoagulation due to severe anemia. Cardiac consult was placed with Dr. Zelaya. Rate control with amiodarone and cardizem. Patient was found to have abnormal thyroid studies and was started on Levothyroxine 75mcg daily. Patient continued on home medications for chronic HTN and DM. Patient stable for discharge as per Dr. Buenrostro. Patient should resume all home medications. Patient should additionally take the medications below as prescribed: Levothyroxine 75mcg PO daily Ferrous Sulfate 325mg PO daily Patient should make appointment and follow up with PMD, Dr. Winkler within 1 week of discharge for post hospital follow up and TSH check. Dr. Winkler to adjust thyroid medication as needed. Patient should make appointment and follow up with GI, Dr. Reyes within 2 weeks of discharge for double balloon enteroscopy. Patient should make appointment and follow up with md physician dermatologist, Dr. Bill within 1 week of discharge for kidneys. This is only a summary of the hospital course. See chart for full details. Discharge Exam - Head Exam Head Exam: ATRAUMATIC, NORMAL INSPECTION - Eye Exam Eye Exam: EOMI, Normal appearance - ENT Exam ENT Exam: Mucous Membranes Moist - Neck Exam Neck exam: Full Rom, Normal Inspection - Respiratory Exam Respiratory Exam: Clear to PA & Lateral, NORMAL BREATHING PATTERN, UNREMARKABLE. absent: Rales, Rhonchi, Wheezes - Cardiovascular Exam Cardiovascular Exam: REGULAR RHYTHM, +S1, +S2 - GI/Abdominal Exam GI & Abdominal Exam: Normal Bowel Sounds, Soft. absent: Distended, Tenderness - Extremities Exam Extremities exam: normal inspection - Neurological Exam Neurological exam: Alert, Oriented x3 - Psychiatric Exam Psychiatric exam: Normal Affect, Normal Mood - Skin Skin Exam: Dry, Normal Color, Warm Discharge Plan - Discharge Medications Prescriptions: Ferrous Sulfate [Feosol] 325 mg PO DAILY #30 tab Levothyroxine [Synthroid] 75 mcg PO DAILY@0630 #30 tab - Follow Up Plan Condition: STABLE Disposition: HOME/ ROUTINE Instructions: Iron Supplements (By mouth), Levothyroxine (By mouth), Heart Failure (DC), Upper Endoscopy (DC), Anemia (DC) Additional Instructions: Patient stable for discharge as per Dr. Buenrostro. Patient should resume all home medications. Patient should additionally take the medications below as prescribed: Levothyroxine 75mcg PO daily Ferrous Sulfate 325mg PO daily Patient should make appointment and follow up with PMD, Dr. Winkler within 1 week of discharge for post hospital follow up and TSH check. Dr. Winkler to adjust thyroid medication as needed. Patient should make appointment and follow up with GI, Dr. Reyes within 2 weeks of discharge for double balloon enteroscopy. Patient should make appointment and follow up with md physician dermatologist, Dr. Bill within 1 week of discharge for kidneys. Patient should return to the ED immediately if symptoms return or worsen. Instructions discussed with patient who understood and agreed. Referrals: Scooter Zelaya MD [Staff Provider] - Dutch Winkler [Staff Provider] - Rolando Bill MD [Staff Provider] - Merrill Reyes MD [Staff Provider] - <Bishop Buenrostro - Last Filed: 10/03/16 07:19> Provider - Provider Date of Admission: 09/25/16 07:49 Attending physician: José Antonio Muñoz DO Hospital Course - Lab Results Lab Results: Most Recent Lab Values WBC 12.3 K/uL (4.8-10.8) H 10/02/16 06:54 RBC 3.50 Mil/uL (3.80-5.20) L 10/02/16 06:54 Hgb 10.5 g/dL (11.0-16.0) L 10/02/16 06:54 Hct 33.2 % (34.0-47.0) L 10/02/16 06:54 MCV 94.8 fL (81.0-99.0) 10/02/16 06:54 MCH 30.0 pg (27.0-31.0) 10/02/16 06:54 MCHC 31.6 g/dL (33.0-37.0) L 10/02/16 06:54 RDW 17.2 % (11.5-14.5) H 10/02/16 06:54 Plt Count 233 K/uL (130-400) 10/02/16 06:54 MPV 8.2 fL (7.2-11.7) 10/02/16 06:54 Neut % (Auto) 73.7 % (50.0-75.0) 10/02/16 06:54 Lymph % (Auto) 18.6 % (20.0-40.0) L 10/02/16 06:54 [place] % (Auto) 5.1 % (0.0-10.0) 10/02/16 06:54 Eos % (Auto) 1.6 % (0.0-4.0) 10/02/16 06:54 Baso % (Auto) 1.0 % (0.0-2.0) 10/02/16 06:54 Neut # 9.1 K/uL (1.8-7.0) H 10/02/16 06:54 Lymph # 2.3 K/uL (1.0-4.3) 10/02/16 06:54 [place] # 0.6 K/uL (0.0-0.8) 10/02/16 06:54 Eos # 0.2 K/uL (0.0-0.7) 10/02/16 06:54 Baso # 0.1 K/uL (0.0-0.2) 10/02/16 06:54 Neutrophils % (Manual) 67 % (50-75) 10/01/16 09:13 Band Neutrophils % 8 % (0-2) H 10/01/16 09:13 Lymphocytes % (Manual) 18 % (20-40) L 10/01/16 09:13 Monocytes % (Manual) 2 % (0-10) 10/01/16 09:13 Eosinophils % (Manual) 1 % (0-4) 10/01/16 09:13 Basophils % (Manual) 1 % (0-2) 10/01/16 09:13 Metamyelocytes % 2 % (0-0) H 10/01/16 09:13 Myelocytes % 1 % (0-0) H 10/01/16 09:13 Nucleated RBC % 1 % (0-0) H 10/01/16 09:13 Platelet Estimate Normal (NORMAL) 10/01/16 09:13 Basophilic Stippling Slight 09/29/16 07:56 Anisocytosis (manual) Slight 10/01/16 09:13 Ovalocytes Slight 10/01/16 09:13 Retic Count 8.1 % (0.5-1.5) H 09/25/16 11:12 Haptoglobin 115 mg/dL (43-212) 09/25/16 11:12 PT 11.5 SECONDS (9.7-12.2) 09/26/16 03:19 INR 1.0 09/26/16 03:19 APTT 31 SECONDS (21-34) 09/26/16 03:19 Sodium 141 mmol/L (132-148) 10/02/16 06:54 Potassium 5.2 mmol/L (3.6-5.2) 10/02/16 06:54 Chloride 102 mmol/L (98-107) 10/02/16 06:54 Carbon Dioxide 31 mmol/L (22-30) H 10/02/16 06:54 Anion Gap 13 (10-20) 10/02/16 06:54 BUN 17 mg/dL (7-17) 10/02/16 06:54 Creatinine 1.4 MG/DL (0.7-1.2) H 10/02/16 06:54 Est GFR ( Amer) 44 10/02/16 06:54 Est GFR (Non-Af Amer) 36 10/02/16 06:54 POC Glucose (mg/dL) 167 mg/dL (65-110) H 10/02/16 11:32 Random Glucose 134 mg/dL (65-105) H 10/02/16 06:54 Hemoglobin A1c 5.7 % (4.2-6.5) 09/26/16 03:19 Calcium 9.2 mg/dl (8.6-10.4) 10/02/16 06:54 Phosphorus 4.3 mg/dL (2.5-4.5) 10/01/16 09:13 Magnesium 2.0 mg/dL (1.6-2.3) 10/01/16 09:13 Iron 55 ug/dL (37-170) 09/25/16 11:12 TIBC 385 ug/dL (250-450) 09/25/16 11:12 % Saturation 14.28 (20-55) L 09/25/16 11:12 Ferritin 23.3 ng/mL 09/25/16 11:12 Total Bilirubin 0.5 mg/dL (0.2-1.3) 10/02/16 06:54 AST 27 U/L (14-36) 10/02/16 06:54 ALT 25 U/L (9-52) 10/02/16 06:54 Alkaline Phosphatase 46 U/L (38-126) 10/02/16 06:54 Troponin I 0.0230 ng/mL (0.00-0.120) 09/25/16 06:35 NT-Pro-B Natriuret Pep 1690 pg/mL (0-900) H 09/25/16 06:35 Total Protein 6.3 g/dL (6.3-8.3) 10/02/16 06:54 Total Protein (PEP) 6.3 g/dL (6.1-8.1) 09/28/16 11:27 Albumin 3.8 g/dL (3.5-5.0) 10/02/16 06:54 Albumin (PEP) 3.8 g/dL (3.8-4.8) 09/28/16 11:27 Globulin 2.5 gm/dL (2.2-3.9) 10/02/16 06:54 Albumin/Globulin Ratio 1.5 (1.0-2.1) 10/02/16 06:54 Sbvyx-6-Vgjzdhaaz 3.2 Relative % 09/28/16 12:25 Lycvd-0-Wwokiidzn 11.5 Relative % 09/28/16 12:25 Beta Globulins 8.8 Relative % 09/28/16 12:25 Ntvi-3-Azpibxsk 0.4 g/dL (0.4-0.6) 09/28/16 11:27 Ulhr-2-Bvsoatyn 0.3 g/dL (0.2-0.5) 09/28/16 11:27 Gamma Globulins 49.6 Relative % 09/28/16 12:25 Abnorm Protein Band 1 0.14 g/dL (None Detected) H 09/28/16 11:27 Abnorm Protein Band 2 TEST NOT PERFORMED 09/28/16 11:27 Abnorm Protein Band 3 TEST NOT PERFORMED 09/28/16 11:27 Triglycerides 163 mg/dL (0-149) H D 09/26/16 03:19 Cholesterol 148 mg/dL (0-199) 09/26/16 03:19 LDL Cholesterol Direct 81 mg/dL (0-129) 09/26/16 03:19 HDL Cholesterol 41 mg/dL (30-70) 09/26/16 03:19 Vitamin B12 > 1000 pg/mL (239-931) H 09/25/16 11:12 RBC Folate 1666 ng/mL RBC (>280) 09/25/16 11:12 Free T4 0.19 ng/dL (0.78-2.19) L 09/26/16 03:19 Thyroxine (T4) 2.64 ug/dL (5.5-11.0) L 10/02/16 06:54 Total T3 0.540 nmol/L (1.49-2.60) L 09/26/16 03:19 TSH 3rd Generation 61.30 mIU/L (0.46-4.68) H 09/26/16 03:19 Urine Color Yellow (YELLOW) 09/25/16 11:17 Urine Clarity Clear (Clear) 09/25/16 11:17 Urine pH 5.0 (5.0-8.0) 09/25/16 11:17 Ur Specific [place] 1.015 (1.003-1.030) 09/25/16 11:17 Urine Protein 1+ mg/dL (NEGATIVE) H 09/25/16 11:17 Urine Glucose (UA) Normal mg/dL (Normal) 09/25/16 11:17 Urine Ketones Negative mg/dL (NEGATIVE) 09/25/16 11:17 Urine Blood 2+ (NEGATIVE) H 09/25/16 11:17 Urine Nitrate Negative (NEGATIVE) 09/25/16 11:17 Urine Bilirubin Negative (NEGATIVE) 09/25/16 11:17 Urine Urobilinogen Normal mg/dL (0.2-1.0) 09/25/16 11:17 Ur Leukocyte Esterase Neg Roman/uL (Negative) 09/25/16 11:17 Urine WBC (Auto) 4 /hpf (0-5) 09/25/16 11:17 Urine RBC (Auto) 5 /hpf (0-3) H 09/25/16 11:17 Ur Squamous Epith Cells < 1 /hpf (0-5) 09/25/16 11:17 Urine Bacteria Rare (<OCC) 09/25/16 11:17 Urine Collection Time 24 HRS 09/26/16 14:32 Urine Total Volume 1450 mL 09/26/16 14:32 Urine Creatinine 1.26 g/L 09/28/16 12:25 Ur Creatinine 24 Hour 1.01 g/24 h (0.63-2.50) 09/28/16 12:25 Urine Microalbumin 264.6 mg/L (0.0-16.6) H 09/25/16 11:21 Ur Total Protein 24 Hr 1994 mg/24 h (<150) H 09/28/16 12:25 Protein/Creat Ratio 24h 1982 mg/g creat (</=84) H 09/28/16 12:25 Urine Total Protein 2493 mg/L (50-240) H 09/28/16 12:25 Ur Protein 24 Hr Calc 797.5 mg/24hr (42-225) H 09/26/16 14:32 Urine Albumin (PEP) 26.9 Relative % 09/28/16 12:25 Ur Protein Fractions See note 09/28/16 12:25 Stool Occult Blood Positive (NEGATIVE) H 09/26/16 18:40 SEUN & SPEP Interp See note 09/28/16 11:27 Blood Type B POSITIVE 09/25/16 06:24 Antibody Screen Negative 09/25/16 06:24 Attending/Attestation - Attestation I have personally seen and examined this patient.: Yes I have fully participated in the care of the patient.: Yes I have reviewed all pertinent clinical information, including history, physical exam and plan: Yes Notes (Text): 10/03/16 07:17 Patient was seen and examined at bedside with the resident. Patient stated that she is feeling comfortable. She denies any abdominal pain She stated that she still has dark colored stools but they're getting light Hemoglobin and hematocrit are stable Patient is clear for discharge by gastroenterology She will follow up as outpatient with GI for Capsule Endoscopy. She will follow up with PMD I discussed the plan of care with the patient and the family at bedside I agree with the discharge note by the resident.
== END 2016-10-02 15:45 | disposition home or self-care (01) | DRG 812 ==
LOC: C.ER 05:49 → C.6T 07:49
PROVIDERS: ADMIT Hospitalist; ATTEND Hospitalist
PROC: 30233N1 Transfusion of Nonautologous Red Blood Cells into Peripheral Vein, Percutaneous Approach (ICD-10-PCS; principal; 2016-09-25)
PROC: 0DJ08ZZ Inspection of Upper Intestinal Tract, Via Natural or Artificial Opening Endoscopic (ICD-10-PCS; 2016-09-26)
DX: D50.9 Iron deficiency anemia, unspecified (principal); N17.9 Acute kidney failure, unspecified; K92.2 Gastrointestinal hemorrhage, unspecified; E11.22 Type 2 diabetes mellitus with diabetic chronic kidney disease; I27.2 Other secondary pulmonary hypertension; I13.0 Hypertensive heart and chronic kidney disease with heart failure and stage 1 through stage 4 chronic kidney disease, or unspecified chronic kidney disease; I50.9 Heart failure, unspecified; R53.1 Weakness; D63.1 Anemia in chronic kidney disease; E03.9 Hypothyroidism, unspecified; I48.0 Paroxysmal atrial fibrillation; J45.909 Unspecified asthma, uncomplicated; K21.0 Gastro-esophageal reflux disease with esophagitis; K44.9 Diaphragmatic hernia without obstruction or gangrene; K59.00 Constipation, unspecified; N18.3 Chronic kidney disease, stage 3 (moderate); W19.XXXA Unspecified fall, initial encounter; Y92.002 Bathroom of unspecified non-institutional (private) residence as the place of occurrence of the external cause; Z74.01 Bed confinement status; Z79.82 Long term (current) use of aspirin; Z87.891 Personal history of nicotine dependence; Z79.4 Long term (current) use of insulin

== ENCOUNTER 2016-12-01 07:49 | Inpatient (IN) | payer MEDICARE ==
[2016-12-01 08:29] LABS: BASO # 0.1 K/uL (0.0-0.2); BASO % 1.1 % (0.0-2.0); EOS # 0.1 K/uL (0.0-0.7); HEMATOCRIT 27.7 % (34.0-47.0); LYMPH # 1.8 K/uL (1.0-4.3); LYMPH % 16.6 % (20.0-40.0); MEAN CELL VOLUME 96.3 fL (81.0-99.0); MEAN CORPUSCULAR HGB CONC 33.3 g/dL (33.0-37.0); MEAN PLATELET VOLUME 8.1 fL (7.2-11.7); MONO # 0.5 K/uL (0.0-0.8); MONO % 4.8 % (0.0-10.0); NRBC % 0.1 % (0.0-2.0); RED CELL DISTRIBUTION WIDTH 17.8 % (11.5-14.5); WHITE BLOOD COUNT 11.1 K/uL (4.8-10.8)
[2016-12-01 08:36] LABS: CHLORIDE 99 mmol/L (98-107); POTASSIUM 4.3 mmol/L (3.6-5.2); SODIUM 142 mmol/L (132-148)
[2016-12-01 08:39] LABS: ALB/GLOB RATIO 1.3 (1.0-2.1); ALKALINE PHOSPHATASE 83 U/L (38-126); ALT/SGPT 30 U/L (9-52); AST/SGOT 21 U/L (14-36); BILIRUBIN,TOTAL 0.4 mg/dL (0.2-1.3); BLOOD UREA NITROGEN 44 mg/dL (7-17); CARBON DIOXIDE 28 mmol/L (22-30); GFR AFRICAN-AMERICAN 27; GLUCOSE,RANDOM 145 mg/dL (65-105); TOTAL PROTEIN 7.1 g/dL (6.3-8.3)
--- NOTE | 2016-12-01 08:58 | C.PDOC ---
History Of Present Illness 81 y/o female with hx anemia and atrial fibrillation? on amiodorone, c/o left sided mid back pain that radiates to left shoulder and to left anterior chest for last 2-3 weeks, worse with movement and breathing. pt has been seen by her PMD for this, and was going to physical therapy, last visit one week ago, without improvement. pt not taking any thing for pain, and pain is getting worse , unable to sleep last night. pt sts pain now runs down to lower back. pt take lasix 3 x a week, is compliant; last dose 2 days ago. pt now with sob since last night. no fever or chills, unable to cough due to pain. Time Seen by Provider: 12/01/16 08:03 Chief Complaint (Nursing): Back Pain History Per: Patient, Family History/Exam Limitations: no limitations Onset/Duration Of Symptoms: Days (2-3 weeks) Current Symptoms Are (Timing): Worse Severity: Moderate Quality: "Pain" Associated Symptoms: Dyspnea. denies: Nausea, Diaphoresis, Syncope Exacerbating Factors: Movement, Deep Breathing Alleviating Factors: None Recent travel outside of the [place]: No Past Medical History Reviewed: Historical Data, Nursing Documentation, Vital Signs Vital Signs: Last Vital Signs Temp 97.9 F 12/01/16 07:54 Pulse 79 12/01/16 07:54 Resp 18 12/01/16 07:54 BP 148/65 12/01/16 07:54 Pulse Ox 94 L 12/01/16 09:10 - Medical History PMH: Anemia, Arthritis, Cardia Arrhythmia, CHF, HTN, Hyperlipidemia Denies: Chronic Kidney Disease - [facility] Procedures EXCISION OF STOMACH, ENDO, DIAGN (06/28/16) INSPECTION OF LOWER INTESTINAL TRACT, ENDO (06/28/16) INSPECTION OF UPPER INTESTINAL TRACT, ENDO (09/25/16) TRANSFUSE NONAUT RED BLOOD CELLS IN PERIPH VEIN, PERC (09/25/16) Family History: States: Unknown Family Hx - Social History Hx Tobacco Use: No Hx Alcohol Use: No Hx Substance Use: No - Immunization History Hx Tetanus Toxoid Vaccination: Yes Hx Influenza Vaccination: Yes Hx Pneumococcal Vaccination: Yes Review Of Systems Constitutional: Negative for: Fever, Chills Cardiovascular: Positive for: Chest Pain, Orthopnea, Paroxysmal Noc. Dyspnea, Edema. Negative for: Palpitations, Light Headedness Respiratory: Positive for: Shortness of Breath, SOB with Excertion. Negative for: Cough, Wheezing Gastrointestinal: Negative for: Nausea, Vomiting, Abdominal Pain Musculoskeletal: Positive for: Shoulder Pain, Back Pain Skin: Negative for: Rash Neurological: Negative for: Weakness, Numbness Physical Exam - Physical Exam Appears: Non-toxic, Other (appears uncomfortable) Skin: Warm, Dry, Pale Head: Atraumatic, Normacephalic Eye(s): bilateral: Conjunctiva Pale Neck: Normal ROM, No Midline Cervical Tenderness Chest: Symmetrical, Tenderness (left chest wall tender to palpation, quarter sized ecchymosis, no erythema or warmth. ) Cardiovascular: No Murmur Respiratory: No Accessory Muscle Use, Other (crackles at bases, right more than left) Gastrointestinal/Abdominal: Bowel Sounds, Soft, No Tenderness, No Mass, No Distention, No Guarding, No Rebound Back: Normal Inspection, No CVA Tenderness, No Vertebral Tenderness, Other ( tender left upper back and bilateral lower back lumbar area) Extremity: Normal ROM, Pedal Edema (+1-2), No Calf Tenderness Pulses: Left Radial: Normal, Right Radial: Normal, Left Femoral: Normal, Right Femoral: Normal, Left Dorsalis Pedis: Normal, Right Dorsalis Pedis: Normal Neurological/Psych: Oriented x3, Normal Speech, Normal Cognition ED Course And Treatment - Laboratory Results Result Diagrams: 12/01/16 08:24 12/01/16 08:24 O2 Sat by Pulse Oximetry: 94 Medical Decision Making Medical Decision Making: discussed with Dr Buenrostro, will admit pt to his service on tele Disposition Discussed With : Bishop Buenrostro Doctor Will See Patient In The: Hospital - Disposition Disposition: HOSPITALIZED Disposition Time: 10:25 Condition: STABLE Forms: [employer] (Khmer) - Clinical Impression Clinical Impression: CHF exacerbation, Worsening renal function, Back pain of thoracolumbar region Decision To Admit - Pt Status Changed To: Hospital Disposition Of: Inpatient - Admit Certification Admit to Inpatient:: After my assessment, the patient will require hospitalization for at least two midnights. This is because of the severity of symptoms shown, intensity of services needed, and/or the medical risk in this patient being treated as an outpatient. - InPatient: Physician Admission Certification: I certify that this patient requires 2 or more midnights of care for the following reason:: pt needs renal work up for worsening renal function as well as diuresis. - . Bed Request Type: Telemetry Admitting Physician: Bishop Buenrosrto Patient Diagnosis: CHF exacerbation, Worsening renal function, Back pain of thoracolumbar region
--- NOTE | 2016-12-01 08:59 | RAD ---
PROCEDURE: CHEST RADIOGRAPH, 1 VIEW HISTORY: Chest pain COMPARISON: 09/25/2016. FINDINGS: LUNGS: There mild pulmonary venous congestion and interstitial pulmonary edema. There is linear atelectasis in the right mid lung. There is bibasilar atelectasis. PLEURA: No pneumothorax or pleural fluid seen. CARDIOVASCULAR: There is persistent mild cardiomegaly l. OSSEOUS STRUCTURES: No significant abnormalities. VISUALIZED UPPER ABDOMEN: Normal. OTHER FINDINGS: None. IMPRESSION: Persistent pulmonary venous congestion and interval development of right mid lung atelectasis.
[2016-12-01] MEDS ORDERED: Lidocaine 5% Patch TD ONE (09:16)
[2016-12-01] MEDS: Lidocaine 5% Patch TD SCH (09:31)
[2016-12-01 10:01] LABS: RBC URINE < 1 /hpf (0-3); URINE BACTERIA RARE (<OCC); URINE BILIRUBIN NEGATIVE (NEGATIVE); URINE BLOOD 1+ (NEGATIVE); URINE COLOR Yellow (YELLOW); URINE GLUCOSE (UA) NORMAL (Normal); URINE KETONE NEGATIVE (NEGATIVE); URINE LEUKOCYTE ESTERASE NEG Leu/uL (Negative); URINE PROTEIN 2+ mg/dL (NEGATIVE); URINE UROBILINOGEN NORMAL mg/dL (0.2-1.0); WBC URINE 2 /hpf (0-5)
[2016-12-01] MEDS: diltiaZEM 240 mg/24 Hours CD Cap PO SCH (14:01)
[2016-12-01] MEDS ORDERED: Albuterol HFA 90 mcg/actuation (8 g) INH PRN (15:00)
[2016-12-01] MEDS: Pantoprazole 40 mg EC Tab PO SCH (15:13)
[2016-12-01] MEDS ORDERED: Tramadol 25 mg ONE (15:21)
[2016-12-01] MEDS: Tramadol 25 mg PO PRN (15:22)
--- NOTE | 2016-12-01 19:51 | CARD ---
APPROVED REPORT EKG Measurement Heart [id number] <Conclusion> Normal sinus rhythm Normal ECG
--- NOTE | 2016-12-01 20:06 | CP.PCM.HP ---
History of Present Illness - History of Present Illness History of Present Illness: PGY-1 H&P for Dr. Sheets CC: Back pain This is a 81 year old female with PMHx CHF, Afib (not on AC due to anemia), HTN , anemia, DM, hypothyroidism, Gastritis who presented to the ED with lower back pain that radiates to the chest. Pain began 1 week prior and has been gradually worsening. Back pain described as 10/10 sharp. It is relieved with ice and lying down. Yesterday, the patient has started experiencing radiation of pain to the left sided chest wall and across the right side of the abdomen. The radiation of pain to the chest is what prompted the patient to seek medical care. The chest pain is described as 7/10 sharp pain and has never occurred before. Patient complains of bilateral leg weakness and worsening leg swelling for 1 week. Also complains of SOB and orthopnea but denies PND, palpitations, cough, dizziness, weight changes. PMHx: CHF, anemia requiring multiple transfusions in the past, Afib (not on anticoagulation due to anemia), DM, asthma, GERD and hypothyroid, Hepatitis C ( treated), cataracts PSHx: Breast lipoma removal, EGD, Laparoscopic Enteroscopy in 2017 revealing gastritis and hiatal hernia but no bleeding Allergies: denies Social Hx: Former smoker- smoke 5 cigarettes per day for 5 years, quit 40 years ago. Denies alcohol and drugs. Lives with brother. Family Hx: Mother- Stroke in her 80s. Sister- colon cancer at 81 years old. Brother-pancreatic cancer at 85 years old. PMD: Dr. Winkler Dental Instructor: Dr. Lynch GI: Dr. Ferro. Nephro: Dr. Bill Medications: Ferrous Sulfate, Levothyroxine 75 mcg PO daily, Budesonide 90 micrograms 1 puff Q12H, amiodarone 200mg PO daily, Diltiazem ER 240mg PO daily, Glipizide 10mg PO daily, Anoro Ellipta 1 puff daily, omeprazole, 20mg PO daily, pantoprazole 20mg PO daily, Furosemide 40mg daily. Present on Admission - Present on Admission Any Indicators Present on Admission: No Review of Systems - Constitutional Constitutional: Weakness. absent: Chills, Fever, Headache, Weight Gain, Weight Loss - EENT Eyes: absent: Change in Vision Ears: absent: Decreased Hearing Nose/Mouth/Throat: absent: Nasal Congestion - Cardiovascular Cardiovascular: Chest Pain (radiating from the back), Dyspnea, Orthopnea. absent: Diaphoresis - Respiratory Respiratory: Dyspnea. absent: Cough, Wheezing - Gastrointestinal Gastrointestinal: absent: Abdominal Pain, Constipation, Diarrhea, Nausea, Vomiting - Genitourinary Genitourinary: absent: Dysuria - Musculoskeletal Musculoskeletal: Back Pain (bilateral right>left) - Integumentary Integumentary: absent: Rash - Neurological Neurological: Weakness. absent: Dizziness, Numbness, Headaches, Tingling - Endocrine Endocrine: absent: Palpitations Past Patient History - Past Medical History & Family History Past Medical History?: Yes - Past Social History Smoking Status: Former Smoker - CARDIAC Hx Cardia Arrhythmia: Yes Hx Congestive Heart Failure: Yes Hx Hypertension: Yes - PULMONARY Hx Respiratory Disorders: No - NEUROLOGICAL Hx Neurological Disorder: No - HEENT Hx HEENT Problems: Yes Hx Cataracts: Yes (bilateral, no surgery) - RENAL Hx Chronic Kidney Disease: No - ENDOCRINE/METABOLIC Hx Endocrine Disorders: Yes Hx Diabetes Mellitus Type 2: Yes - HEMATOLOGICAL/ONCOLOGICAL Hx Anemia: Yes - INTEGUMENTARY Hx Dermatological Problems: No - MUSCULOSKELETAL/RHEUMATOLOGICAL Hx Arthritis: Yes - GASTROINTESTINAL Hx Gastrointestinal Disorders: Yes Hx Colostomy: Yes Hx Hemorrhoids: Yes - GENITOURINARY/GYNECOLOGICAL Hx Genitourinary Disorders: No - PSYCHIATRIC Hx Substance Use: No - SURGICAL HISTORY Hx Surgeries: No - ANESTHESIA Hx Anesthesia: No Hx Anesthesia Reactions: No Hx Malignant Hyperthermia: No Meds Allergies/Adverse Reactions: Allergies Allergy/AdvReac Type Severity Reaction Status Date / Time No Known Allergies Allergy Verified 12/01/16 07:55 Physical Exam - Constitutional Appears: No Acute Distress - Head Exam Head Exam: ATRAUMATIC, NORMAL INSPECTION, NORMOCEPHALIC - Eye Exam Eye Exam: EOMI, PERRL - ENT Exam ENT Exam: Mucous Membranes Moist - Respiratory Exam Respiratory Exam: Clear to Auscultation Bilateral. absent: Rales, Rhonchi, Wheezes - Cardiovascular Exam Cardiovascular Exam: REGULAR RHYTHM, +S1, +S2 Additional comments: Reproducible chest pain with left sided chest wall palpation - GI/Abdominal Exam GI & Abdominal Exam: Normal Bowel Sounds, Soft. absent: Tenderness - Extremities Exam Extremities exam: Positive for: pedal edema, pedal pulses present. Negative for : tenderness - Back Exam Back exam: paraspinal tenderness (right sided exquisite tenderness). absent: CVA tenderness (L), CVA tenderness (R) - Neurological Exam Neurological exam: Alert, CN II-XII Intact, Oriented x3 Additional comments: Muscle strength 5/5 bilateral upper and lower extremities. - Skin Skin Exam: Dry, Intact, Normal Color, Warm Results - Vital Signs Recent Vital Signs: Last Vital Signs Temp 97.6 F 12/01/16 16:29 Pulse 72 12/01/16 16:29 Resp 17 12/01/16 16:29 BP 134/68 12/01/16 16:29 Pulse Ox 94 L 12/01/16 19:15 - Labs Result Diagrams: 12/01/16 08:24 12/01/16 08:24 Labs: Laboratory Results - last 24 hr 12/01/16 14:41 Total Creatine Kinase 55 CK-MB (Mass) 0.78 Troponin I, Quant < 0.0120 Assessment & Plan - Assessment and Plan (Free Text) Assessment: This is a 81 year old female with PMHx CHF, Afib (not on AC due to anemia), HTN , anemia, DM, hypothyroidism, Gastritis who presented to the ED with lower back pain that radiates to the chest. It is likely that the chest pain is due to costochondritis. The pain seems to originate from the back and is reproducible on the chest. Patient has a history of back pain for which she was told by her PMD that she needs physical therapy. Muscular tightness in the back can exacerbate tightness in surrounding musculature and lead to the chest pain felt by the patient. It is still necessary to rule out an ACS. For that reason, patient will need to be admitted for observation. Patient is also experiencing a mild exacerbation of likely diastolic CHF based on BNP and prior Echo. Plan: Chest Pain Likely musculoskeletal First troponin neg. F/u [place] x2 Dr. Little (service director) consulted. Help appreciated. Tramadol 25 mg TID prn pain Flexeril 5 mg PO qHS Acute on chronic diastolic heart failure F/u Echo Received IV Lasix in ED Restart home Lasix 40 mg po daily tomorrow History of Anemia Restart home Ferrous sulfate 325 mg PO daily History of Asthma Spoken with pharmacy about available formulary Convert home Budesonide 90 mc 1 puff Q12 to available formulary (different form of Budesonide) Convert Anoro Ellipta 1 puff daily to available formulary (substituted to Ventolin) History of Atrial Fibrillation Restarted home Amiodarone 200 mg PO daily Restarted home Cardizem ER 240 mg PO daily Not anticoagulating due to anemia History of Diabetes Restarted home Glipizide 10 mg PO daily History of Hypothyroidism Restarted home Synthroid 75 mcg PO daily Prophylactic Measure No anticoagulation due to anemia SCDs Protonix 40 mg PO daily Heart Healthy Diet AM Labs including CBC, CMP, Lipid Panel, Thyroid studies, Hemoglobin A1C - Date & Time Date: 12/01/16 Time: 13:00
[2016-12-02] MEDS: Tramadol 25 mg PO PRN (03:07)
[2016-12-02] MEDS: Levothyroxine 75 MCG TAB PO SCH (06:01)
[2016-12-02 07:32] LABS: BASO # 0.1 K/uL (0.0-0.2); BASO % 0.8 % (0.0-2.0); EOS # 0.1 K/uL (0.0-0.7); EOS % 1.2 % (0.0-4.0); HEMATOCRIT 28.6 % (34.0-47.0); LYMPH # 1.6 K/uL (1.0-4.3); LYMPH % 16.9 % (20.0-40.0); MEAN CELL VOLUME 97.4 fL (81.0-99.0); MEAN CORPUSCULAR HEMOGLOBIN 31.9 pg (27.0-31.0); MEAN CORPUSCULAR HGB CONC 32.8 g/dL (33.0-37.0); MEAN PLATELET VOLUME 8.6 fL (7.2-11.7); MONO # 0.5 K/uL (0.0-0.8); MONO % 4.9 % (0.0-10.0); NRBC % 0.1 % (0.0-2.0); RED CELL DISTRIBUTION WIDTH 17.7 % (11.5-14.5); WHITE BLOOD COUNT 9.7 K/uL (4.8-10.8)
[2016-12-02] MEDS: Budesonide 0.25 mg/2 ml Inhal Susp UD INH SCH (07:56)
[2016-12-02 08:16] LABS: POTASSIUM 4.3 mmol/L (3.6-5.2)
[2016-12-02 08:19] LABS: ALB/GLOB RATIO 1.2 (1.0-2.1); BILIRUBIN,TOTAL 0.6 mg/dL (0.2-1.3); CALCIUM 12.5 mg/dl (8.6-10.4)
[2016-12-02 09:45] LABS: THYROID STIMULATING HORMONE 16.3 mIU/L (0.46-4.68)
--- NOTE | 2016-12-02 10:17 | CP.PCM.PN ---
Subjective - Date & Time of Evaluation Date of Evaluation: 12/02/16 Time of Evaluation: 10:00 - Subjective Subjective: This is a patient whom is known to me and the hospitalist service. She was recently discharged from [facility] after comming in with a Hgb of 3.5 and since then her anticoagulation for atrial fibrillation was held and she has been doing ok. Hgb is now 9.4 today. She now returns yesterday due to low back pain bilaterally that then radiates to the chest. When I saw her this morning the patient reported no acute events overnight however she continues to have the low back pain - she says it is difficult for her to walk or sleep due to the pain. She also continues to have the chest pain - she says it's worse with a deep breath and re-producible on exam as well. She reports no BM for past 3 days. When I examined her she was able to walk slowly to the bathroom and then back on her own without assistance however very slowly she says due to back pain. Cardiac enzymes negative x 3. Also the chest pain is left upper chest that is reproducible on exam. Objective - Vital Signs/Intake and Output Vital Signs (last 24 hours): Temp Pulse Resp BP Pulse Ox 98.2 F 71 20 128/60 95 12/01/16 23:45 12/02/16 00:00 12/01/16 23:45 12/01/16 23:45 12/01/16 23:45 Intake and Output: 12/02/16 12/02/16 06:59 18:59 Intake Total 200 Balance 200 - Medications Medications: Current Medications Albuterol (Ventolin Hfa 90 Mcg/Actuation (8 G)) 1 puff INH RQ6 PRN PRN Reason: Shortness of Breath Amiodarone HCl (Cordarone) 200 mg PO DAILY [facility] Last Admin: 12/01/16 14:01 Dose: 200 mg Budesonide (Pulmicort Respules) 0.25 mg INH RQ12 [facility] Last Admin: 12/02/16 07:56 Dose: 0.25 mg Cyclobenzaprine HCl (Flexeril) 5 mg PO HS [facility] Last Admin: 12/01/16 23:39 Dose: 5 mg Diltiazem HCl (Cardizem Cd) 240 mg PO DAILY [facility] Last Admin: 12/01/16 14:01 Dose: 240 mg Ferrous Sulfate (Feosol) 325 mg PO DAILY [facility] Last Admin: 12/01/16 14:01 Dose: 325 mg Furosemide (Lasix) 40 mg PO DAILY [facility] Glipizide (Glucotrol Xl) 10 mg PO DAILY [facility] Heparin Sodium (Porcine) (Heparin) 5,000 units SC Q12 [facility] Levothyroxine Sodium (Synthroid) 75 mcg PO DAILY@0630 [facility] Last Admin: 12/02/16 06:01 Dose: 75 mcg Lidocaine (Lidoderm) 1 ea TD DAILY [facility] Last Admin: 12/01/16 09:31 Dose: 1 ea Pantoprazole Sodium (Protonix Ec Tab) 40 mg PO DAILY [facility] Last Admin: 12/01/16 15:13 Dose: 40 mg Tramadol HCl (Ultram) 25 mg PO TID PRN PRN Reason: Pain, severe (8-10) Last Admin: 12/02/16 03:07 Dose: 25 mg - Labs Labs: 12/02/16 07:12 12/02/16 07:12 - Constitutional Appears: Well, No Acute Distress - Head Exam Head Exam: NORMAL INSPECTION, NORMOCEPHALIC - Eye Exam Eye Exam: EOMI, Normal appearance - ENT Exam ENT Exam: Mucous Membranes Moist - Respiratory Exam Respiratory Exam: Clear to Ausculation Bilateral, NORMAL BREATHING PATTERN - Cardiovascular Exam Cardiovascular Exam: Irregular Rhythm. absent: Tachycardia, Diastolic murmur, Gallop - GI/Abdominal Exam GI & Abdominal Exam: Soft, Normal Bowel Sounds - Neurological Exam Neurological Exam: Alert, Awake, Oriented x3 Neuro motor strength exam: Left Upper Extremity: 5, Right Upper Extremity: 5, Left Lower Extremity: 4, Right Lower Extremity: 4 - Psychiatric Exam Psychiatric exam: Depressed, Flat Affect - Skin Skin Exam: Normal Color, Warm Assessment and Plan - Assessment and Plan (Free Text) Assessment: Plan: Chest Pain 12/02: The chest pain was reproducible on exam, there was an order for Tramadol but she did not think it helped. Will add on percocet PO PRN, trying to avoid NSAIDs since she had a really bad aneima recently. The cardiac enzymes were negative x 3. Likely musculoskeletal Dr. Little (family and consumer science professor) consulted. Help appreciated. Tramadol 25 mg TID prn pain Flexeril 5 mg PO qHS Acute on chronic diastolic heart failure F/u Echo Received IV Lasix in ED Restart home Lasix 40 mg po daily tomorrow History of Anemia 12/02: Recently in the hospital with Hgb of 3.4. Now off anticoagulation. Hgb is 9.4 For now will hold the ferrous sulfate as she reports no BM in three days History of Asthma Spoken with pharmacy about available formulary Convert home Budesonide 90 mc 1 puff Q12 to available formulary (different form of Budesonide) Convert Anoro Ellipta 1 puff daily to available formulary (substituted to Ventolin) History of Atrial Fibrillation 12/02: Per review of the telemetry HR is 60s to 70s and appears NSR. She is on rate control medications. Restarted home Amiodarone 200 mg PO daily Restarted home Cardizem ER 240 mg PO daily Not anticoagulating due to anemia History of Diabetes Restarted home Glipizide 10 mg PO daily History of Hypothyroidism 12/02: Recheck of TSH is 16.30, considering she was just started on synthroid recently will not increase dose. Restarted home Synthroid 75 mcg PO daily Prophylactic Measure No anticoagulation due to anemia SCDs Protonix 40 mg PO daily Heart Healthy Diet AM Labs including CBC, CMP, Lipid Panel, Thyroid studies, Hemoglobin A1C
--- NOTE | 2016-12-02 10:39 | CP.PCM.CON ---
History of Present Illness - History of Present Illness History of Present Illness: 81 yo female chronic anemia, afib, chf,baseline creatinine of 1.3 presents with atypical back pain and chest pain undergoing AL pain appears more likely musculoskeletal, ellicited on attempts to stand up and walk no change in u/o no edema poor po due to pain no NSAID use renal consult for creatinine of 2 Review of Systems - Constitutional Constitutional: Fatigue. absent: Lethargy - EENT Eyes: absent: Blind Spots, Blurred Vision Nose/Mouth/Throat: absent: Epistaxis, Nasal Congestion - Cardiovascular Cardiovascular: Irregular Heart Rhythm - Respiratory Respiratory: absent: Cough, Dyspnea - Gastrointestinal Gastrointestinal: Constipation. absent: Abdominal Pain, Diarrhea - Genitourinary Genitourinary: Difficulty Urinating. absent: Change in Urinary Stream - Musculoskeletal Musculoskeletal: Back Pain, Limited Range of Motion - Neurological Neurological: absent: Abnormal Gait, Abnormal Hearing - Hematologic/Lymphatic Hematologic: absent: Easy Bleeding, Easy Bruising Past Patient History - Past Medical History & Family History Past Medical History?: Yes - Past Social History Smoking Status: Former Smoker - CARDIAC Hx Cardia Arrhythmia: Yes Hx Congestive Heart Failure: Yes Hx Hypertension: Yes - PULMONARY Hx Respiratory Disorders: No - NEUROLOGICAL Hx Neurological Disorder: No - HEENT Hx HEENT Problems: Yes Hx Cataracts: Yes (bilateral, no surgery) - RENAL Hx Chronic Kidney Disease: No - ENDOCRINE/METABOLIC Hx Endocrine Disorders: Yes Hx Diabetes Mellitus Type 2: Yes - HEMATOLOGICAL/ONCOLOGICAL Hx Anemia: Yes - INTEGUMENTARY Hx Dermatological Problems: No - MUSCULOSKELETAL/RHEUMATOLOGICAL Hx Arthritis: Yes - GASTROINTESTINAL Hx Gastrointestinal Disorders: Yes Hx Colostomy: Yes Hx Hemorrhoids: Yes - GENITOURINARY/GYNECOLOGICAL Hx Genitourinary Disorders: No - PSYCHIATRIC Hx Substance Use: No - SURGICAL HISTORY Hx Surgeries: No - ANESTHESIA Hx Anesthesia: No Hx Anesthesia Reactions: No Hx Malignant Hyperthermia: No Meds Allergies/Adverse Reactions: Allergies Allergy/AdvReac Type Severity Reaction Status Date / Time No Known Allergies Allergy Verified 12/01/16 07:55 - Medications Medications: Current Medications Albuterol (Ventolin Hfa 90 Mcg/Actuation (8 G)) 1 puff INH RQ6 PRN PRN Reason: Shortness of Breath Amiodarone HCl (Cordarone) 200 mg PO DAILY [facility] Last Admin: 12/01/16 14:01 Dose: 200 mg Budesonide (Pulmicort Respules) 0.25 mg INH RQ12 [facility] Last Admin: 12/02/16 07:56 Dose: 0.25 mg Cyclobenzaprine HCl (Flexeril) 5 mg PO HS [facility] Last Admin: 12/01/16 23:39 Dose: 5 mg Diltiazem HCl (Cardizem Cd) 240 mg PO DAILY [facility] Last Admin: 12/01/16 14:01 Dose: 240 mg Docusate Sodium (Colace) 100 mg PO BID [facility] Furosemide (Lasix) 40 mg PO DAILY [facility] Furosemide (Lasix) 20 mg PO DAILY [facility] Glipizide (Glucotrol Xl) 10 mg PO DAILY [facility] Heparin Sodium (Porcine) (Heparin) 5,000 units SC Q12 [facility] Levothyroxine Sodium (Synthroid) 75 mcg PO DAILY@0630 [facility] Last Admin: 12/02/16 06:01 Dose: 75 mcg Lidocaine (Lidoderm) 1 ea TD DAILY [facility] Last Admin: 12/01/16 09:31 Dose: 1 ea Oxycodone/Acetaminophen (Percocet 5/325 Mg Tab) 1 tab PO Q4H PRN PRN Reason: Pain, Mild (1-3) Stop: 12/05/16 10:28 Pantoprazole Sodium (Protonix Ec Tab) 40 mg PO DAILY [facility] Last Admin: 12/01/16 15:13 Dose: 40 mg Tramadol HCl (Ultram) 25 mg PO TID PRN PRN Reason: Pain, severe (8-10) Last Admin: 12/02/16 03:07 Dose: 25 mg Physical Exam - Constitutional Appears: Non-toxic, Chronically Ill - Head Exam Head Exam: ATRAUMATIC, NORMAL INSPECTION - Eye Exam Eye Exam: EOMI, Normal appearance - ENT Exam ENT Exam: Mucous Membranes Moist, Normal Exam - Neck Exam Neck exam: Positive for: Full Rom. Negative for: Lymphadenopathy - Respiratory Exam Respiratory Exam: Clear to Auscultation Bilateral. absent: Accessory Muscle Use - Cardiovascular Exam Cardiovascular Exam: Irregular Rhythm. absent: Rubs - GI/Abdominal Exam GI & Abdominal Exam: Normal Bowel Sounds, Soft. absent: Tenderness - Extremities Exam Extremities exam: Negative for: pedal edema - Back Exam Back exam: paraspinal tenderness. absent: FULL ROM, rash noted - Neurological Exam Neurological exam: Alert, Oriented x3 Results - Vital Signs Recent Vital Signs: Last Vital Signs Temp 98.2 F 12/01/16 23:45 Pulse 71 12/02/16 00:00 Resp 20 12/01/16 23:45 BP 128/60 12/01/16 23:45 Pulse Ox 95 12/01/16 23:45 - Labs Result Diagrams: 12/02/16 07:12 12/02/16 07:12 Labs: Laboratory Results - last 24 hr 12/01/16 12/01/16 12/02/16 14:41 20:50 02:56 WBC RBC Hgb Hct MCV MCH MCHC RDW Plt Count MPV Neut % (Auto) Lymph % (Auto) [place] % (Auto) Eos % (Auto) Baso % (Auto) Neut # Lymph # [place] # Eos # Baso # Sodium Potassium Chloride Carbon Dioxide Anion Gap BUN Creatinine Est GFR ( Amer) Est GFR (Non-Af Amer) POC Glucose (mg/dL) 117 H Random Glucose Calcium Total Bilirubin AST ALT Alkaline Phosphatase Total Creatine Kinase 55 58 CK-MB (Mass) 0.78 0.86 Troponin I, Quant < 0.0120 < 0.0120 Total Protein Albumin Globulin Albumin/Globulin Ratio Triglycerides Cholesterol LDL Cholesterol Direct HDL Cholesterol Free T4 TSH 3rd Generation 12/02/16 12/02/16 12/02/16 06:23 07:12 07:12 WBC 9.7 RBC 2.94 L Hgb 9.4 L Hct 28.6 L MCV 97.4 MCH 31.9 H MCHC 32.8 L RDW 17.7 H Plt Count 258 MPV 8.6 Neut % (Auto) 76.2 H Lymph % (Auto) 16.[address] [place] % (Auto) 4.9 Eos % (Auto) 1.2 Baso % (Auto) 0.8 Neut # 7.4 H Lymph # 1.6 [place] # 0.5 Eos # 0.1 Baso # 0.1 Sodium 143 Potassium 4.3 Chloride 98 Carbon Dioxide 32 H Anion Gap 17 BUN 40 H Creatinine 2.3 H Est GFR ( Amer) 25 Est GFR (Non-Af Amer) 20 POC Glucose (mg/dL) 90 Random Glucose 102 Calcium 12.5 H Total Bilirubin 0.6 AST 20 ALT 26 Alkaline Phosphatase 66 Total Creatine Kinase CK-MB (Mass) Troponin I, Quant Total Protein 7.0 Albumin 3.8 Globulin 3.2 Albumin/Globulin Ratio 1.2 Triglycerides 102 D Cholesterol 126 LDL Cholesterol Direct 66 HDL Cholesterol 39 Free T4 TSH 3rd Generation 16.30 H 12/02/16 07:12 WBC RBC Hgb Hct MCV MCH MCHC RDW Plt Count MPV Neut % (Auto) Lymph % (Auto) [place] % (Auto) Eos % (Auto) Baso % (Auto) Neut # Lymph # [place] # Eos # Baso # Sodium Potassium Chloride Carbon Dioxide Anion Gap BUN Creatinine Est GFR ( Amer) Est GFR (Non-Af Amer) POC Glucose (mg/dL) Random Glucose Calcium Total Bilirubin AST ALT Alkaline Phosphatase Total Creatine Kinase CK-MB (Mass) Troponin I, Quant Total Protein Albumin Globulin Albumin/Globulin Ratio Triglycerides Cholesterol LDL Cholesterol Direct HDL Cholesterol Free T4 2.08 TSH 3rd Generation Assessment & Plan - Assessment and Plan (Free Text) Assessment: elise, ? pre renal back pain for ivf spep cpk urine Na trend labs
[2016-12-02] MEDS: GlipiZIDE 10 mg SR Tab PO SCH (10:51)
[2016-12-02] MEDS: Pantoprazole 40 mg EC Tab PO SCH (10:51)
[2016-12-02] MEDS: diltiaZEM 240 mg/24 Hours CD Cap PO SCH (10:51)
[2016-12-02] MEDS: Lidocaine 5% Patch TD SCH (10:55)
[2016-12-02] MEDS: Sodium Chloride 0.9% 1,000 ML IV SCH (11:00)
[2016-12-02 16:30] LABS: URINE BILIRUBIN NEGATIVE (NEGATIVE); URINE BLOOD NEGATIVE (NEGATIVE); URINE COLOR Yellow (YELLOW); URINE GLUCOSE (UA) NORMAL (Normal); URINE KETONE NEGATIVE (NEGATIVE); URINE LEUKOCYTE ESTERASE NEG Leu/uL (Negative); URINE PROTEIN 1+ mg/dL (NEGATIVE); URINE UROBILINOGEN NORMAL mg/dL (0.2-1.0); WBC URINE 2 /hpf (0-5)
--- NOTE | 2016-12-02 23:36 | CP.PCM.CON ---
History of Present Illness - History of Present Illness History of Present Illness: Patient has hx of A Fib and not on anticoagulation due to anemia Past Patient History - Past Medical History & Family History Past Medical History?: Yes - Past Social History Smoking Status: Former Smoker - CARDIAC Hx Cardiac Disorders: Yes (Cardiac Arrhythmia) Hx Congestive Heart Failure: Yes Hx Hypertension: Yes - PULMONARY Hx Respiratory Disorders: No - NEUROLOGICAL Hx Neurological Disorder: No - HEENT Hx HEENT Problems: Yes Hx Cataracts: Yes (bilateral, no surgery) - RENAL Hx Chronic Kidney Disease: No - ENDOCRINE/METABOLIC Hx Diabetes Mellitus Type 2: Yes - HEMATOLOGICAL/ONCOLOGICAL Hx Anemia: Yes - INTEGUMENTARY Hx Dermatological Problems: No - MUSCULOSKELETAL/RHEUMATOLOGICAL Hx Arthritis: Yes - GASTROINTESTINAL Hx Gastrointestinal Disorders: Yes Hx Colostomy: Yes Hx Hemorrhoids: Yes - GENITOURINARY/GYNECOLOGICAL Hx Genitourinary Disorders: No - PSYCHIATRIC Hx Substance Use: No - SURGICAL HISTORY Hx Surgeries: No - ANESTHESIA Hx Anesthesia: No Hx Anesthesia Reactions: No Hx Malignant Hyperthermia: No Meds Allergies/Adverse Reactions: Allergies Allergy/AdvReac Type Severity Reaction Status Date / Time No Known Allergies Allergy Verified 12/01/16 07:55 - Medications Medications: Current Medications Albuterol (Ventolin Hfa 90 Mcg/Actuation (8 G)) 1 puff INH RQ6 PRN PRN Reason: Shortness of Breath Amiodarone HCl (Cordarone) 200 mg PO DAILY [facility] Last Admin: 12/02/16 10:51 Dose: 200 mg Budesonide (Pulmicort Respules) 0.25 mg INH RQ12 [facility] Last Admin: 12/02/16 07:56 Dose: 0.25 mg Cyclobenzaprine HCl (Flexeril) 5 mg PO HS [facility] Last Admin: 12/02/16 22:42 Dose: 5 mg Diltiazem HCl (Cardizem Cd) 240 mg PO DAILY [facility] Last Admin: 12/02/16 10:51 Dose: 240 mg Docusate Sodium (Colace) 100 mg PO BID [facility] Last Admin: 12/02/16 18:16 Dose: 100 mg Furosemide (Lasix) 20 mg PO DAILY [facility] Last Admin: 12/02/16 10:53 Dose: 20 mg Glipizide (Glucotrol Xl) 10 mg PO DAILY [facility] Last Admin: 12/02/16 10:51 Dose: 10 mg Heparin Sodium (Porcine) (Heparin) 5,000 units SC Q12 [facility] Last Admin: 12/02/16 22:42 Dose: 5,000 units Sodium Chloride (Sodium Chloride 0.9%) 1,000 mls @ 75 mls/hr IV .[id number] [facility] Last Admin: 12/02/16 11:00 Dose: 75 mls/hr Levothyroxine Sodium (Synthroid) 75 mcg PO DAILY@0630 [facility] Last Admin: 12/02/16 06:01 Dose: 75 mcg Lidocaine (Lidoderm) 1 ea TD DAILY [facility] Last Admin: 12/02/16 10:55 Dose: 1 ea Oxycodone/Acetaminophen (Percocet 5/325 Mg Tab) 1 tab PO Q4H PRN PRN Reason: Pain, Mild (1-3) Stop: 12/05/16 10:28 Pantoprazole Sodium (Protonix Ec Tab) 40 mg PO DAILY [facility] Last Admin: 12/02/16 10:51 Dose: 40 mg Tramadol HCl (Ultram) 25 mg PO TID PRN PRN Reason: Pain, severe (8-10) Last Admin: 12/02/16 03:07 Dose: 25 mg Results - Vital Signs Recent Vital Signs: Last Vital Signs Temp 98.5 F 12/02/16 15:25 Pulse 74 12/02/16 17:21 Resp 20 12/02/16 15:25 BP 154/72 H 12/02/16 15:25 Pulse Ox 92 L 12/02/16 17:21 - Labs Result Diagrams: 12/02/16 07:12 12/02/16 07:12 Labs: Laboratory Results - last 24 hr 12/02/16 12/02/16 12/02/16 02:56 06:23 07:12 WBC 9.7 RBC 2.94 L Hgb 9.4 L Hct 28.6 L MCV 97.4 MCH 31.9 H MCHC 32.8 L RDW 17.7 H Plt Count 258 MPV 8.6 Neut % (Auto) 76.2 H Lymph % (Auto) 16.9 L [place] % (Auto) 4.9 Eos % (Auto) 1.2 Baso % (Auto) 0.8 Neut # 7.4 H Lymph # 1.6 Robertson # 0.5 Eos # 0.1 Baso # 0.1 Sodium Potassium Chloride Carbon Dioxide Anion Gap BUN Creatinine Est GFR ( Amer) Est GFR (Non-Af Amer) POC Glucose (mg/dL) 117 H 90 Random Glucose Calcium Total Bilirubin AST ALT Alkaline Phosphatase Total Creatine Kinase Total Protein Albumin Globulin Albumin/Globulin Ratio Triglycerides Cholesterol LDL Cholesterol Direct HDL Cholesterol Free T4 TSH 3rd Generation Urine Color Urine Clarity Urine pH Ur Specific [place] Urine Protein Urine Glucose (UA) Urine Ketones Urine Blood Urine Nitrate Urine Bilirubin Urine Urobilinogen Ur Leukocyte Esterase Urine WBC (Auto) Ur Squamous Epith Cells Ur Random Sodium 12/02/16 12/02/16 12/02/16 07:12 07:12 12:22 WBC RBC Hgb Hct MCV MCH MCHC RDW Plt Count MPV Neut % (Auto) Lymph % (Auto) [place] % (Auto) Eos % (Auto) Baso % (Auto) Neut # Lymph # [place] # Eos # Baso # Sodium 143 Potassium 4.3 Chloride 98 Carbon Dioxide 32 H Anion Gap 17 BUN 40 H Creatinine 2.3 H Est GFR ( Amer) 25 Est GFR (Non-Af Amer) 20 POC Glucose (mg/dL) 121 H Random Glucose 102 Calcium 12.5 H Total Bilirubin 0.6 AST 20 ALT 26 Alkaline Phosphatase 66 Total Creatine Kinase Total Protein 7.0 Albumin 3.8 Globulin 3.2 Albumin/Globulin Ratio 1.2 Triglycerides 102 D Cholesterol 126 LDL Cholesterol Direct 66 HDL Cholesterol 39 Free T4 2.08 TSH 3rd Generation 16.30 H Urine Color Urine Clarity Urine pH Ur Specific [place] Urine Protein Urine Glucose (UA) Urine Ketones Urine Blood Urine Nitrate Urine Bilirubin Urine Urobilinogen Ur Leukocyte Esterase Urine WBC (Auto) Ur Squamous Epith Cells Ur Random Sodium 12/02/16 12/02/16 12/02/16 16:23 16:23 17:16 WBC RBC Hgb Hct MCV MCH MCHC RDW Plt Count MPV Neut % (Auto) Lymph % (Auto) [place] % (Auto) Eos % (Auto) Baso % (Auto) Neut # Lymph # [place] # Eos # Baso # Sodium Potassium Chloride Carbon Dioxide Anion Gap BUN Creatinine Est GFR ( Amer) Est GFR (Non-Af Amer) POC Glucose (mg/dL) 92 Random Glucose Calcium Total Bilirubin AST ALT Alkaline Phosphatase Total Creatine Kinase Total Protein Albumin Globulin Albumin/Globulin Ratio Triglycerides Cholesterol LDL Cholesterol Direct HDL Cholesterol Free T4 TSH 3rd Generation Urine Color Yellow Urine Clarity Clear Urine pH 6.0 Ur Specific [place] 1.011 Urine Protein 1+ H Urine Glucose (UA) Normal Urine Ketones Negative Urine Blood Negative Urine Nitrate Negative Urine Bilirubin Negative Urine Urobilinogen Normal Ur Leukocyte Esterase Neg Urine WBC (Auto) 2 Ur Squamous Epith Cells < 1 Ur Random Sodium 88 12/02/16 12/02/16 17:17 21:58 WBC RBC Hgb Hct MCV MCH MCHC RDW Plt Count MPV Neut % (Auto) Lymph % (Auto) [place] % (Auto) Eos % (Auto) Baso % (Auto) Neut # Lymph # [place] # Eos # Baso # Sodium Potassium Chloride Carbon Dioxide Anion Gap BUN Creatinine Est GFR ( Amer) Est GFR (Non-Af Amer) POC Glucose (mg/dL) 82 Random Glucose Calcium Total Bilirubin AST ALT Alkaline Phosphatase Total Creatine Kinase 50 Total Protein Albumin Globulin Albumin/Globulin Ratio Triglycerides Cholesterol LDL Cholesterol Direct HDL Cholesterol Free T4 TSH 3rd Generation Urine Color Urine Clarity Urine pH Ur Specific [place] Urine Protein Urine Glucose (UA) Urine Ketones Urine Blood Urine Nitrate Urine Bilirubin Urine Urobilinogen Ur Leukocyte Esterase Urine WBC (Auto) Ur Squamous Epith Cells Ur Random Sodium
[2016-12-03] MEDS: Sodium Chloride 0.9% 1,000 ML IV SCH ×2 (05:00→14:29)
[2016-12-03] MEDS: Levothyroxine 75 MCG TAB PO SCH (06:11)
--- NOTE | 2016-12-03 09:01 | CP.PCM.PN ---
<Nam Amato - Last Filed: 12/03/16 09:09> Subjective - Date & Time of Evaluation Date of Evaluation: 12/03/16 Time of Evaluation: 09:00 - Subjective Subjective: PGY [address] Penn HPI: Patient seen and examined at bedside. Sitting up comfortably in chair. Complaining of chest pain when she takes a deep breath but not when she breathes normally. She states that her back hurts which seems to be a chronic issue for her. She has had a INGRAM but does not have one at this point in time. She says that when she has PT she feels better for a short time and then the pain returns. She is a good candidate for [facility] placement. No other complaints at this time Objective - Vital Signs/Intake and Output Vital Signs (last 24 hours): Temp Pulse Resp BP Pulse Ox 98.1 F 66 20 123/59 L 95 12/02/16 23:45 12/03/16 08:17 12/02/16 23:45 12/02/16 23:45 12/02/16 23:45 Intake and Output: 12/03/16 12/03/16 06:59 18:59 Intake Total 1200 Balance 1200 - Medications Medications: Current Medications Albuterol (Ventolin Hfa 90 Mcg/Actuation (8 G)) 1 puff INH RQ6 PRN PRN Reason: Shortness of Breath Amiodarone HCl (Cordarone) 200 mg PO DAILY [facility] Last Admin: 12/02/16 10:51 Dose: 200 mg Budesonide (Pulmicort Respules) 0.25 mg INH RQ12 [facility] Last Admin: 12/02/16 07:56 Dose: 0.25 mg Cyclobenzaprine HCl (Flexeril) 5 mg PO HS [facility] Last Admin: 12/02/16 22:42 Dose: 5 mg Diltiazem HCl (Cardizem Cd) 240 mg PO DAILY [facility] Last Admin: 12/02/16 10:51 Dose: 240 mg Docusate Sodium (Colace) 100 mg PO BID [facility] Last Admin: 12/02/16 18:16 Dose: 100 mg Furosemide (Lasix) 20 mg PO DAILY [facility] Last Admin: 12/02/16 10:53 Dose: 20 mg Glipizide (Glucotrol Xl) 10 mg PO DAILY [facility] Last Admin: 08/19/17 10:51 Dose: 10 mg Heparin Sodium (Porcine) (Heparin) 5,000 units SC Q12 [facility] Last Admin: 12/02/16 22:42 Dose: 5,000 units Sodium Chloride (Sodium Chloride 0.9%) 1,000 mls @ 75 mls/hr IV .[id number] [facility] Last Admin: 12/03/16 05:00 Dose: 75 mls/hr Levothyroxine Sodium (Synthroid) 75 mcg PO DAILY@0630 [facility] Last Admin: 12/03/16 06:11 Dose: 75 mcg Lidocaine (Lidoderm) 1 ea TD DAILY [facility] Last Admin: 12/02/16 10:55 Dose: 1 ea Oxycodone/Acetaminophen (Percocet 5/325 Mg Tab) 1 tab PO Q4H PRN PRN Reason: Pain, Mild (1-3) Stop: 12/05/16 10:28 Pantoprazole Sodium (Protonix Ec Tab) 40 mg PO DAILY [facility] Last Admin: 12/02/16 10:51 Dose: 40 mg Tramadol HCl (Ultram) 25 mg PO TID PRN PRN Reason: Pain, severe (8-10) Last Admin: 12/02/16 03:07 Dose: 25 mg - Labs Labs: 12/02/16 07:12 12/02/16 07:12 - Constitutional Appears: Well, Non-toxic, No Acute Distress - Head Exam Head Exam: ATRAUMATIC, NORMAL INSPECTION, NORMOCEPHALIC - Eye Exam Eye Exam: EOMI, PERRL Pupil Exam: NORMAL ACCOMODATION - ENT Exam ENT Exam: Mucous Membranes Moist - Respiratory Exam Additional comments: inspiratory rales - Cardiovascular Exam Cardiovascular Exam: REGULAR RHYTHM. absent: Gallop, Rubs, Murmur - GI/Abdominal Exam GI & Abdominal Exam: Soft, Normal Bowel Sounds. absent: Distended, Tenderness - Extremities Exam Extremities Exam: Normal Capillary Refill, Tenderness (mild on palpation). absent: Joint Swelling - Neurological Exam Neurological Exam: Alert, Awake, CN II-XII Intact, Oriented x3 Neuro motor strength exam: Left Upper Extremity: 5, Right Upper Extremity: 5, Left Lower Extremity: 5, Right Lower Extremity: 5 - Psychiatric Exam Psychiatric exam: Normal Affect, Normal Mood - Skin Skin Exam: Dry, Intact, Normal Color, Warm Assessment and Plan - Assessment and Plan (Free Text) Assessment: Chest Pain * AL negative x3 * Dr. Little (validation leader) - F/U reccs * Tramadol 25 mg TID prn pain * Percocet 5/325 PO PRN for pain * Flexeril 5 mg PO qHS Back Pain * Lidoderm Patch QD * PT Consult * [facility] Placement * Will discuss with Case Management for Placement in [facility] Acute on chronic diastolic heart failure * F/u Echo * Lasix 20 mg po QD History of Anemia * Hgb is 9.0 History of Asthma * Albuterol inhaler PRN * Pulmicort 0.25 History of Atrial Fibrillation * Rate Controlled * Amiodarone 200 mg PO daily * Cardizem ER 240 mg PO daily * Not anticoagulating due to anemia History of Diabetes * Glipizide 10 mg PO daily History of Hypothyroidism * Synthroid 75 mcg PO daily PPX * No anticoagulation due to anemia * SCDs * Protonix 40 mg PO daily * Heart Healthy Diet <Mook Penn - Last Filed: 12/03/16 17:54> Objective - Vital Signs/Intake and Output Vital Signs (last 24 hours): Temp Pulse Resp BP Pulse Ox 98.5 F 68 20 135/71 97 12/03/16 16:33 12/03/16 16:33 12/03/16 16:33 12/03/16 16:33 12/03/16 16:33 Intake and Output: 12/03/16 12/03/16 06:59 18:59 Intake Total 1200 Balance 1200 - Medications Medications: Current Medications Albuterol (Ventolin Hfa 90 Mcg/Actuation (8 G)) 1 puff INH RQ6 PRN PRN Reason: Shortness of Breath Amiodarone HCl (Cordarone) 200 mg PO DAILY [facility] Last Admin: 12/03/16 09:45 Dose: 200 mg Budesonide (Pulmicort Respules) 0.25 mg INH RQ12 [facility] Last Admin: 12/02/16 07:56 Dose: 0.25 mg Cyclobenzaprine HCl (Flexeril) 5 mg PO HS [facility] Last Admin: 12/02/16 22:42 Dose: 5 mg Diltiazem HCl (Cardizem Cd) 240 mg PO DAILY [facility] Last Admin: 12/03/16 09:46 Dose: 240 mg Docusate Sodium (Colace) 100 mg PO BID [facility] Last Admin: 12/03/16 09:46 Dose: 100 mg Furosemide (Lasix) 20 mg PO DAILY [facility] Last Admin: 12/03/16 09:46 Dose: 20 mg Glipizide (Glucotrol Xl) 10 mg PO DAILY [facility] Last Admin: 12/03/16 09:50 Dose: 10 mg Heparin Sodium (Porcine) (Heparin) 5,000 units SC Q12 [facility] Last Admin: 12/03/16 09:46 Dose: 5,000 units Sodium Chloride (Sodium Chloride 0.9%) 1,000 mls @ 75 mls/hr IV .[id number] [facility] Last Admin: 12/03/16 14:29 Dose: Not Given Levothyroxine Sodium (Synthroid) 75 mcg PO DAILY@0630 [facility] Last Admin: 12/03/16 06:11 Dose: 75 mcg Lidocaine (Lidoderm) 1 ea TD DAILY [facility] Last Admin: 12/03/16 09:45 Dose: 1 ea Oxycodone/Acetaminophen (Percocet 5/325 Mg Tab) 1 tab PO Q4H PRN PRN Reason: Pain, Mild (1-3) Stop: 12/05/16 10:28 Pantoprazole Sodium (Protonix Ec Tab) 40 mg PO DAILY [facility] Last Admin: 12/03/16 09:45 Dose: 40 mg Tramadol HCl (Ultram) 25 mg PO TID PRN PRN Reason: Pain, severe (8-10) Last Admin: 12/02/16 03:07 Dose: 25 mg - Labs Labs: 12/03/16 08:41 12/03/16 08:41 Attending/Attestation - Attestation I have personally seen and examined this patient.: Yes I have fully participated in the care of the patient.: Yes I have reviewed all pertinent clinical information, including history, physical exam and plan: Yes Notes (Text): 12/03/16 17:45 Patient was seen and examined at 9:15 AM 12/03/16 659 B Exam, assessment and plan were thoroughly gone over with the resident Including the exam above: HEENT: Small amount of dried blood in the right nostril Respiratory:Bilateral inspiratory rales lower lung eng Assessments: 1). Chest Pain that is reproducible (left pectoralis area) 2). Acute On Chronic Diastolic HF 3). MARIA EUGENIA: baseline BUN/Cr is 17/1.4 (10/02/16). Continue IVF at 75 ml per hour. F/ U SPEP, CPK, Urine Na as ordered by Nephrology Dr. Bill's group and their help is appreciated 4). Hx Anemia Likely Secondary to Chronic Disease 5). Hx Asthma 6). Hx Atrial Fibrillation 7). Hx DM 2 8). Hx Hypothyroidism 9). Hx Chronic LBP We need improvement in the MARIA EUGENIA. Medicine Team will speak with Social Sciences Research Scientist on for possible KO[facility]. Mook Penn D.O.
[2016-12-03 09:11] LABS: BASO # 0.1 K/uL (0.0-0.2); BASO % 0.9 % (0.0-2.0); EOS # 0.2 K/uL (0.0-0.7); EOS % 1.9 % (0.0-4.0); HEMATOCRIT 26.9 % (34.0-47.0); LYMPH # 1.8 K/uL (1.0-4.3); MEAN CELL VOLUME 97.3 fL (81.0-99.0); MEAN CORPUSCULAR HEMOGLOBIN 32.5 pg (27.0-31.0); MEAN CORPUSCULAR HGB CONC 33.4 g/dL (33.0-37.0); MEAN PLATELET VOLUME 8.7 fL (7.2-11.7); MONO # 0.4 K/uL (0.0-0.8); MONO % 4.9 % (0.0-10.0); RED CELL DISTRIBUTION WIDTH 17.3 % (11.5-14.5)
[2016-12-03 09:30] LABS: ALB/GLOB RATIO 1.3 (1.0-2.1); BILIRUBIN,TOTAL 0.3 mg/dL (0.2-1.3); CALCIUM 12.2 mg/dl (8.6-10.4); POTASSIUM 4.7 mmol/L (3.6-5.2); TOTAL PROTEIN 6.2 g/dL (6.3-8.3)
[2016-12-03] MEDS: Pantoprazole 40 mg EC Tab PO SCH (09:45)
[2016-12-03] MEDS: Lidocaine 5% Patch TD SCH (09:45)
[2016-12-03] MEDS: diltiaZEM 240 mg/24 Hours CD Cap PO SCH (09:46)
[2016-12-03] MEDS: GlipiZIDE 10 mg SR Tab PO SCH (09:50)
[2016-12-03] MEDS: Budesonide 0.25 mg/2 ml Inhal Susp UD INH SCH (19:37)
--- NOTE | 2016-12-03 23:17 | CP.PCM.PN ---
Subjective - Date & Time of Evaluation Date of Evaluation: 12/03/16 Time of Evaluation: 11:50 - Subjective Subjective: Patient seen and evaluated Denies chest pain and dypnea Not on anticoagulation for A Fib due to anemia Objective - Vital Signs/Intake and Output Vital Signs (last 24 hours): Temp Pulse Resp BP Pulse Ox 98.5 F 68 20 135/71 97 12/03/16 16:33 12/03/16 16:33 12/03/16 16:33 12/03/16 16:33 12/03/16 16:33 - Medications Medications: Current Medications Albuterol (Ventolin Hfa 90 Mcg/Actuation (8 G)) 1 puff INH RQ6 PRN PRN Reason: Shortness of Breath Amiodarone HCl (Cordarone) 200 mg PO DAILY [facility] Last Admin: 12/03/16 09:45 Dose: 200 mg Budesonide (Pulmicort Respules) 0.25 mg INH RQ12 [facility] Last Admin: 12/03/16 19:37 Dose: 0.25 mg Cyclobenzaprine HCl (Flexeril) 5 mg PO HS [facility] Last Admin: 12/03/16 22:41 Dose: 5 mg Diltiazem HCl (Cardizem Cd) 240 mg PO DAILY [facility] Last Admin: 12/03/16 09:46 Dose: 240 mg Docusate Sodium (Colace) 100 mg PO BID [facility] Last Admin: 12/03/16 18:36 Dose: 100 mg Furosemide (Lasix) 20 mg PO DAILY [facility] Last Admin: 12/03/16 09:46 Dose: 20 mg Glipizide (Glucotrol Xl) 10 mg PO DAILY [facility] Last Admin: 12/03/16 09:50 Dose: 10 mg Heparin Sodium (Porcine) (Heparin) 5,000 units SC Q12 [facility] Last Admin: 12/03/16 22:44 Dose: 5,000 units Sodium Chloride (Sodium Chloride 0.9%) 1,000 mls @ 75 mls/hr IV .[id number] [facility] Last Admin: 12/03/16 14:29 Dose: Not Given Levothyroxine Sodium (Synthroid) 75 mcg PO DAILY@0630 [facility] Last Admin: 12/03/16 06:11 Dose: 75 mcg Lidocaine (Lidoderm) 1 ea TD DAILY [facility] Last Admin: 12/03/16 09:45 Dose: 1 ea Oxycodone/Acetaminophen (Percocet 5/325 Mg Tab) 1 tab PO Q4H PRN PRN Reason: Pain, Mild (1-3) Stop: 12/05/16 10:28 Pantoprazole Sodium (Protonix Ec Tab) 40 mg PO DAILY [facility] Last Admin: 12/03/16 09:45 Dose: 40 mg Tramadol HCl (Ultram) 25 mg PO TID PRN PRN Reason: Pain, severe (8-10) Last Admin: 12/02/16 03:07 Dose: 25 mg - Labs Labs: 12/03/16 08:41 12/03/16 08:41
[2016-12-04] MEDS: Sodium Chloride 0.9% 1,000 ML IV SCH ×3 (01:06→21:13)
[2016-12-04] MEDS: Levothyroxine 75 MCG TAB PO SCH (05:48)
[2016-12-04] MEDS: Budesonide 0.25 mg/2 ml Inhal Susp UD INH SCH ×2 (07:35→19:36)
--- NOTE | 2016-12-04 07:56 | CP.PCM.PN ---
Subjective - Date & Time of Evaluation Date of Evaluation: 12/04/16 Time of Evaluation: 07:55 - Subjective Subjective: seen and examined c/o left sided rib pain with respiration Objective - Vital Signs/Intake and Output Vital Signs (last 24 hours): Temp Pulse Resp BP Pulse Ox 98.8 F 80 20 152/62 H 98 12/04/16 04:27 12/04/16 04:27 12/04/16 04:27 12/04/16 04:27 12/03/16 23:45 Intake and Output: 12/04/16 12/04/16 06:59 18:59 Intake Total 1560 Balance 1560 - Medications Medications: Current Medications Albuterol (Ventolin Hfa 90 Mcg/Actuation (8 G)) 1 puff INH RQ6 PRN PRN Reason: Shortness of Breath Amiodarone HCl (Cordarone) 200 mg PO DAILY [facility] Last Admin: 12/03/16 09:45 Dose: 200 mg Budesonide (Pulmicort Respules) 0.25 mg INH RQ12 [facility] Last Admin: 12/04/16 07:35 Dose: 0.25 mg Cyclobenzaprine HCl (Flexeril) 5 mg PO HS [facility] Last Admin: 12/03/16 22:41 Dose: 5 mg Diltiazem HCl (Cardizem Cd) 240 mg PO DAILY [facility] Last Admin: 12/03/16 09:46 Dose: 240 mg Docusate Sodium (Colace) 100 mg PO BID [facility] Last Admin: 12/03/16 18:36 Dose: 100 mg Glipizide (Glucotrol Xl) 10 mg PO DAILY [facility] Last Admin: 12/03/16 09:50 Dose: 10 mg Heparin Sodium (Porcine) (Heparin) 5,000 units SC Q12 [facility] Last Admin: 12/03/16 22:44 Dose: 5,000 units Sodium Chloride (Sodium Chloride 0.9%) 1,000 mls @ 75 mls/hr IV .[id number] [facility] Last Admin: 12/04/16 01:06 Dose: 75 mls/hr Levothyroxine Sodium (Synthroid) 75 mcg PO DAILY@0630 [facility] Last Admin: 12/04/16 05:48 Dose: 75 mcg Lidocaine (Lidoderm) 1 ea TD DAILY [facility] Last Admin: 12/03/16 09:45 Dose: 1 ea Oxycodone/Acetaminophen (Percocet 5/325 Mg Tab) 1 tab PO Q4H PRN PRN Reason: Pain, Mild (1-3) Stop: 12/05/16 10:28 Pantoprazole Sodium (Protonix Ec Tab) 40 mg PO DAILY [facility] Last Admin: 12/03/16 09:45 Dose: 40 mg Tramadol HCl (Ultram) 25 mg PO TID PRN PRN Reason: Pain, severe (8-10) Last Admin: 12/02/16 03:07 Dose: 25 mg - Labs Labs: 12/03/16 08:41 12/03/16 08:41 - Constitutional Appears: Non-toxic, No Acute Distress - Head Exam Head Exam: NORMAL INSPECTION - Eye Exam Eye Exam: Normal appearance - ENT Exam ENT Exam: Mucous Membranes Moist, Normal Exam - Neck Exam Neck Exam: Normal Inspection - Respiratory Exam Respiratory Exam: Clear to Ausculation Bilateral, NORMAL BREATHING PATTERN - Cardiovascular Exam Cardiovascular Exam: REGULAR RHYTHM - GI/Abdominal Exam GI & Abdominal Exam: Soft, Normal Bowel Sounds - Extremities Exam Extremities Exam: Normal Inspection Assessment and Plan (1) Back pain of thoracolumbar region Status: Acute (2) Worsening renal function Status: Acute (3) Acute kidney injury Status: Acute (4) Atrial fibrillation with controlled ventricular response Status: Acute (5) Chest pain Status: Acute - Assessment and Plan (Free Text) Assessment: hold lasix, maintain iv fluids check renal ultrasound quantify proteinuria no acei / arb
[2016-12-04 08:27] LABS: BASO # 0.1 K/uL (0.0-0.2); BASO % 0.8 % (0.0-2.0); EOS # 0.2 K/uL (0.0-0.7); EOS % 1.6 % (0.0-4.0); HEMATOCRIT 28.6 % (34.0-47.0); LYMPH # 1.2 K/uL (1.0-4.3); LYMPH % 13.1 % (20.0-40.0); MEAN CELL VOLUME 96.8 fL (81.0-99.0); MEAN CORPUSCULAR HEMOGLOBIN 32.4 pg (27.0-31.0); MEAN CORPUSCULAR HGB CONC 33.4 g/dL (33.0-37.0); MEAN PLATELET VOLUME 8.4 fL (7.2-11.7); MONO # 0.4 K/uL (0.0-0.8); MONO % 4.3 % (0.0-10.0); NRBC % 0.1 % (0.0-2.0); RED CELL DISTRIBUTION WIDTH 17.3 % (11.5-14.5); WHITE BLOOD COUNT 9.4 K/uL (4.8-10.8)
[2016-12-04 08:47] LABS: POTASSIUM 4.1 mmol/L (3.6-5.2)
[2016-12-04 08:49] LABS: BILIRUBIN,TOTAL 0.6 mg/dL (0.2-1.3)
[2016-12-04 08:50] LABS: ALB/GLOB RATIO 1.2 (1.0-2.1); CALCIUM 12.2 mg/dl (8.6-10.4); TOTAL PROTEIN 6.7 g/dL (6.3-8.3)
--- NOTE | 2016-12-04 09:16 | CP.PCM.PN ---
<Wesley Ford - Last Filed: 12/04/16 15:43> Subjective - Date & Time of Evaluation Date of Evaluation: 12/04/16 Time of Evaluation: 07:00 - Subjective Subjective: PGY-[address] Mook Penn Patient seen and examined at bedside. Patient states that her chest pain from admission is resolved and her back pain is improved. Patient reports swelling improved as well but will return if she just lays down flat in bed. Patient denies fevers, chills, headache, dizziness, chest pain, SOB, abdominal pain, dysuria. Objective - Vital Signs/Intake and Output Vital Signs (last 24 hours): Temp Pulse Resp BP Pulse Ox 98.4 F 79 18 145/69 93 L 12/04/16 07:40 12/04/16 07:40 12/04/16 07:40 12/04/16 07:40 12/04/16 07:40 Intake and Output: 12/04/16 12/04/16 06:59 18:59 Intake Total 1560 Balance 1560 - Medications Medications: Current Medications Albuterol (Ventolin Hfa 90 Mcg/Actuation (8 G)) 1 puff INH RQ6 PRN PRN Reason: Shortness of Breath Amiodarone HCl (Cordarone) 200 mg PO DAILY [facility] Last Admin: 12/03/16 09:45 Dose: 200 mg Budesonide (Pulmicort Respules) 0.25 mg INH RQ12 [facility] Last Admin: 12/04/16 07:35 Dose: 0.25 mg Cyclobenzaprine HCl (Flexeril) 5 mg PO HS [facility] Last Admin: 12/03/16 22:41 Dose: 5 mg Diltiazem HCl (Cardizem Cd) 240 mg PO DAILY [facility] Last Admin: 12/03/16 09:46 Dose: 240 mg Docusate Sodium (Colace) 100 mg PO BID [facility] Last Admin: 12/03/16 18:36 Dose: 100 mg Glipizide (Glucotrol Xl) 10 mg PO DAILY [facility] Last Admin: 12/03/16 09:50 Dose: 10 mg Heparin Sodium (Porcine) (Heparin) 5,000 units SC Q12 [facility] Last Admin: 12/03/16 22:44 Dose: 5,000 units Sodium Chloride (Sodium Chloride 0.9%) 1,000 mls @ 75 mls/hr IV .[id number] [facility] Last Admin: 12/04/16 01:06 Dose: 75 mls/hr Levothyroxine Sodium (Synthroid) 75 mcg PO DAILY@0630 [facility] Last Admin: 12/04/16 05:48 Dose: 75 mcg Lidocaine (Lidoderm) 1 ea TD DAILY [facility] Last Admin: 12/03/16 09:45 Dose: 1 ea Oxycodone/Acetaminophen (Percocet 5/325 Mg Tab) 1 tab PO Q4H PRN PRN Reason: Pain, Mild (1-3) Stop: 12/05/16 10:28 Pantoprazole Sodium (Protonix Ec Tab) 40 mg PO DAILY [facility] Last Admin: 12/03/16 09:45 Dose: 40 mg Tramadol HCl (Ultram) 25 mg PO TID PRN PRN Reason: Pain, severe (8-10) Last Admin: 12/02/16 03:07 Dose: 25 mg - Labs Labs: 12/04/16 08:13 12/04/16 08:13 - Constitutional Appears: No Acute Distress - Head Exam Head Exam: ATRAUMATIC, NORMAL INSPECTION, NORMOCEPHALIC - Eye Exam Eye Exam: EOMI, PERRL - ENT Exam ENT Exam: Mucous Membranes Moist - Respiratory Exam Respiratory Exam: Clear to Ausculation Bilateral. absent: Rales, Rhonchi, Wheezes - Cardiovascular Exam Cardiovascular Exam: REGULAR RHYTHM, +S1, +S2 - GI/Abdominal Exam GI & Abdominal Exam: Soft, Normal Bowel Sounds. absent: Tenderness - Extremities Exam Extremities Exam: absent: Pedal Edema, Tenderness - Back Exam Back Exam: paraspinal tenderness Additional comments: Tenderness along the thoracolumbar junction on the left - Neurological Exam Neurological Exam: Alert, Awake, Oriented x3 - Skin Skin Exam: Dry, Intact, Normal Color, Warm Assessment and Plan - Assessment and Plan (Free Text) Plan: Chest Pain Likely musculoskeletal Troponin neg x3 Dr. Little (accountant tax) consulted. Help appreciated. Tramadol 25 mg TID prn pain Flexeril 5 mg PO qHS Acute on chronic diastolic heart failure Discontinued lasix per nephro recommendation Acute on chronic CKD Dr. Bill's colleague consulted, help appreciated. NS at 75 cc/hr F/u protein electrophoresis Renal US showed echogenic renal parenchyma seen in renal disease. 1.6 cm right lower pole and 2.4 cm right parapelvic cyst. History of Anemia Restart home Ferrous sulfate 325 mg PO daily History of Asthma Spoken with pharmacy about available formulary Convert home Budesonide 90 mc 1 puff Q12 to available formulary (different form of Budesonide) Convert Anoro Ellipta 1 puff daily to available formulary (substituted to Ventolin) History of Atrial Fibrillation Amiodarone 200 mg PO daily Cardizem ER 240 mg PO daily Not anticoagulating due to anemia History of Diabetes Restarted home Glipizide 10 mg PO daily History of Hypothyroidism Synthroid 75 mcg PO daily Prophylactic Measure No anticoagulation due to anemia SCDs Protonix 40 mg PO daily Heart Healthy Diet 12/04: Pending Clearance from Nephro for discharge. F/u urine protein study. Case DW Dr. Susan Ford PGY-1 <Mook Penn - Last Filed: 12/04/16 19:36> Objective - Vital Signs/Intake and Output Vital Signs (last 24 hours): Temp Pulse Resp BP Pulse Ox 97.9 F 85 20 153/65 H 94 L 12/04/16 15:15 12/04/16 15:15 12/04/16 15:15 12/04/16 15:15 12/04/16 15:15 - Medications Medications: Current Medications Albuterol (Ventolin Hfa 90 Mcg/Actuation (8 G)) 1 puff INH RQ6 PRN PRN Reason: Shortness of Breath Amiodarone HCl (Cordarone) 200 mg PO DAILY [facility] Last Admin: 12/04/16 10:44 Dose: 200 mg Budesonide (Pulmicort Respules) 0.25 mg INH RQ12 [facility] Last Admin: 12/04/16 07:35 Dose: 0.25 mg Cyclobenzaprine HCl (Flexeril) 5 mg PO HS [facility] Last Admin: 12/03/16 22:41 Dose: 5 mg Diltiazem HCl (Cardizem Cd) 240 mg PO DAILY [facility] Last Admin: 12/04/16 10:44 Dose: 240 mg Docusate Sodium (Colace) 100 mg PO BID [facility] Last Admin: 12/04/16 18:26 Dose: 100 mg Glipizide (Glucotrol Xl) 10 mg PO DAILY [facility] Last Admin: 12/04/16 10:44 Dose: 10 mg Heparin Sodium (Porcine) (Heparin) 5,000 units SC Q12 [facility] Last Admin: 12/04/16 10:44 Dose: 5,000 units Sodium Chloride (Sodium Chloride 0.9%) 1,000 mls @ 75 mls/hr IV .[id number] [facility] Last Admin: 12/04/16 18:28 Dose: Not Given Levothyroxine Sodium (Synthroid) 75 mcg PO DAILY@0630 [facility] Last Admin: 12/04/16 05:48 Dose: 75 mcg Lidocaine (Lidoderm) 1 ea TD DAILY [facility] Last Admin: 12/04/16 10:45 Dose: 1 ea Oxycodone/Acetaminophen (Percocet 5/325 Mg Tab) 1 tab PO Q4H PRN PRN Reason: Pain, Mild (1-3) Stop: 12/05/16 10:28 Last Admin: 12/04/16 11:11 Dose: 1 tab Pantoprazole Sodium (Protonix Ec Tab) 40 mg PO DAILY [facility] Last Admin: 12/04/16 11:10 Dose: 40 mg Tramadol HCl (Ultram) 25 mg PO TID PRN PRN Reason: Pain, severe (8-10) Last Admin: 12/02/16 03:07 Dose: 25 mg - Labs Labs: 12/04/16 08:13 12/04/16 08:13 Attending/Attestation - Attestation I have personally seen and examined this patient.: Yes I have fully participated in the care of the patient.: Yes I have reviewed all pertinent clinical information, including history, physical exam and plan: Yes Notes (Text): 12/04/16 19:34 Patient was seen and examined at 2:00 PM 12/04/16 659 B Exam, assessment and plan were thoroughly gone over with the resident Including the exam above: HEENT: Small amount of dried blood in the right nostril Respiratory:Bilateral inspiratory rales lower lung eng Assessments: 1). Chest Pain that is reproducible (left pectoralis area) 2). Acute On Chronic Diastolic HF 3). MARIA EUGENIA: baseline BUN/Cr is 17/1.4 (10/02/16). Continue IVF at 75 ml per hour. BUN/Cr 33/2.5 today. F/U SPEP, CPK, Urine Na as ordered by Nephrology Dr. Bill 's group and their help is appreciated 4). Hx Anemia Likely Secondary to Chronic Disease 5). Hx Asthma 6). Hx Atrial Fibrillation 7). Hx DM 2 8). Hx Hypothyroidism 9). Hx Chronic LBP Patient will need for her MARIA EUGENIA to resolve and clearance from Nephrology. This was explained to patient with the help of Nurse Walsh who helped to translate [place]ish I spoke with Mixing House Operator Radha and patient wants Home PT and Rx provided. Lamberto PowersO
[2016-12-04] MEDS: GlipiZIDE 10 mg SR Tab PO SCH (10:44)
[2016-12-04] MEDS: diltiaZEM 240 mg/24 Hours CD Cap PO SCH (10:44)
[2016-12-04] MEDS: Lidocaine 5% Patch TD SCH (10:45)
[2016-12-04] MEDS: Pantoprazole 40 mg EC Tab PO SCH (11:10)
[2016-12-04] MEDS: Oxycodone/Acetaminophen 5/325 mg Tab PO PRN (11:11)
--- NOTE | 2016-12-04 12:20 | US ---
PROCEDURE: Renal/urinary bladder ultrasound HISTORY: acute renal failure COMPARISON: Renal ultrasound performed 09/25/16 TECHNIQUE: Sonogram of the kidneys and urinary bladder. FINDINGS: RIGHT KIDNEY: Measures: 10.4 x 5.3 x 5.8 cm. Echogenic renal parenchyma may be seen in the setting of medical renal disease. No obstructing calculus or hydronephrosis identified. 1.6 x 0.9 x 1.3 cm lower pole cyst. 2.4 x 1.6 x 1.2 cm parapelvic cyst. LEFT KIDNEY: Measures: 10.8 x 5.0 x 5.6 cm. Echogenic renal parenchyma may be seen in the setting of medical renal disease. No obstructing calculus or hydronephrosis identified. OTHER FINDINGS: Prevoid urinary bladder measures approximately 5.4 x 6.2 x 7.7 cm, calculated volume 133.8 mL. No postvoid residual. Bilateral ureteral jets are identified. IMPRESSION: Echogenic renal parenchyma may be seen in the setting of medical renal disease. 1.6 cm right lower pole and 2.4 cm right parapelvic cyst. Prevoid urinary bladder volume 133.8 mL. No postvoid residual.
--- NOTE | 2016-12-04 13:42 | CP.PCM.PN ---
<LORIE ROMO - Last Filed: 12/04/16 13:39> Subjective - Date & Time of Evaluation Date of Evaluation: 12/04/16 Time of Evaluation: 13:39 - Subjective Subjective: Lorie Romo, PGY1, Progress Note for Dr. Little: Pt seen and examined at bedside. No acute events overnight. Pt c/o mild L sided reproducible cp, denies sob, palpitations, diaphoresis, n/v/d, f/c. Objective - Vital Signs/Intake and Output Vital Signs (last 24 hours): Temp Pulse Resp BP Pulse Ox 98.4 F 79 18 145/69 93 L 12/04/16 07:40 12/04/16 07:40 12/04/16 07:40 12/04/16 07:40 12/04/16 07:40 Intake and Output: 12/04/16 12/04/16 06:59 18:59 Intake Total 1560 Balance 1560 - Medications Medications: Current Medications Albuterol (Ventolin Hfa 90 Mcg/Actuation (8 G)) 1 puff INH RQ6 PRN PRN Reason: Shortness of Breath Amiodarone HCl (Cordarone) 200 mg PO DAILY [facility] Last Admin: 12/04/16 10:44 Dose: 200 mg Budesonide (Pulmicort Respules) 0.25 mg INH RQ12 [facility] Last Admin: 12/04/16 07:35 Dose: 0.25 mg Cyclobenzaprine HCl (Flexeril) 5 mg PO HS [facility] Last Admin: 12/03/16 22:41 Dose: 5 mg Diltiazem HCl (Cardizem Cd) 240 mg PO DAILY [facility] Last Admin: 12/04/16 10:44 Dose: 240 mg Docusate Sodium (Colace) 100 mg PO BID [facility] Last Admin: 12/04/16 10:44 Dose: 100 mg Glipizide (Glucotrol Xl) 10 mg PO DAILY [facility] Last Admin: 12/04/16 10:44 Dose: 10 mg Heparin Sodium (Porcine) (Heparin) 5,000 units SC Q12 [facility] Last Admin: 12/04/16 10:44 Dose: 5,000 units Sodium Chloride (Sodium Chloride 0.9%) 1,000 mls @ 75 mls/hr IV .[id number] [facility] Last Admin: 12/04/16 01:06 Dose: 75 mls/hr Levothyroxine Sodium (Synthroid) 75 mcg PO DAILY@0630 [facility] Last Admin: 12/04/16 05:48 Dose: 75 mcg Lidocaine (Lidoderm) 1 ea TD DAILY [facility] Last Admin: 12/04/16 10:45 Dose: 1 ea Oxycodone/Acetaminophen (Percocet 5/325 Mg Tab) 1 tab PO Q4H PRN PRN Reason: Pain, Mild (1-3) Stop: 12/05/16 10:28 Last Admin: 12/04/16 11:11 Dose: 1 tab Pantoprazole Sodium (Protonix Ec Tab) 40 mg PO DAILY [facility] Last Admin: 12/04/16 11:10 Dose: 40 mg Tramadol HCl (Ultram) 25 mg PO TID PRN PRN Reason: Pain, severe (8-10) Last Admin: 12/02/16 03:07 Dose: 25 mg - Labs Labs: 12/04/16 08:13 12/04/16 08:13 - Constitutional Appears: No Acute Distress - Head Exam Head Exam: ATRAUMATIC, NORMOCEPHALIC - Eye Exam Eye Exam: PERRL - ENT Exam ENT Exam: Mucous Membranes Moist - Respiratory Exam Respiratory Exam: Clear to Ausculation Bilateral - Cardiovascular Exam Cardiovascular Exam: RRR, +S1, +S2. absent: Murmur - GI/Abdominal Exam GI & Abdominal Exam: Soft, Normal Bowel Sounds. absent: Tenderness - Extremities Exam Extremities Exam: absent: Calf Tenderness, Pedal Edema - Neurological Exam Neurological Exam: Alert, Awake, Oriented x3 - Psychiatric Exam Psychiatric exam: Normal Mood - Skin Skin Exam: Dry, Warm Assessment and Plan - Assessment and Plan (Free Text) Assessment: 81F with PMH anemia requiring multiple transfusions in the past, afib (not on AC d/t anemia), diastolic CHF, DM, asthma, GERD, hypothyroid, Hep C (treated), CKD, admitted for cp, r/o ACS. Also found to have acute on chronic CKD, nephro on board. Cardiology consulted for management of CHF. Plan: Chronic Stable CHF: - Echocardiogram 06/2016 shows EF 83%. borderline LVH. L ventricular function normal. mitral valve leaflets thickened, calcified mitral regurgitation, mild- moderate mitral regurg, moderate to severe pulm HTN. - BNP 938, Cr 2.5, with pt's age, likely stable bnp. - Full AL neg - Lasix IV given in ED. - Given no acute CHF exacerbation, can hold off lasix IV per nephro requirement. Hx of afib: - EKG in ED shows HR 82, nsr, QTc mildly prolonged 464. - Currently NSR, HR 72 - C/w rhythm control with Amiodarone and rate controlled with Cardizem 240 mg PO daily. - Not on anticoagulation due to anemia (which required multiple transfusions in the past. - Will discuss with primary team if can start pt on daily ASA. Acute on chronic CKD: - BUN/Cr 33/2.5 today. f/u renal US, protein electrophoresis. will avoid rosetta-in/ arb. lasix held. Discussed with attending, Dr. Sidney Romo, PGY1 <Nam Little - Last Filed: 12/04/16 20:34> Objective - Vital Signs/Intake and Output Vital Signs (last 24 hours): Temp Pulse Resp BP Pulse Ox 97.9 F 85 20 153/65 H 94 L 12/04/16 15:15 12/04/16 15:15 12/04/16 15:15 12/04/16 15:15 12/04/16 15:15 - Medications Medications: Current Medications Albuterol (Ventolin Hfa 90 Mcg/Actuation (8 G)) 1 puff INH RQ6 PRN PRN Reason: Shortness of Breath Amiodarone HCl (Cordarone) 200 mg PO DAILY [facility] Last Admin: 12/04/16 10:44 Dose: 200 mg Budesonide (Pulmicort Respules) 0.25 mg INH RQ12 [facility] Last Admin: 12/04/16 19:36 Dose: 0.25 mg Cyclobenzaprine HCl (Flexeril) 5 mg PO HS [facility] Last Admin: 12/03/16 22:41 Dose: 5 mg Diltiazem HCl (Cardizem Cd) 240 mg PO DAILY [facility] Last Admin: 12/04/16 10:44 Dose: 240 mg Docusate Sodium (Colace) 100 mg PO BID [facility] Last Admin: 12/04/16 18:26 Dose: 100 mg Glipizide (Glucotrol Xl) 10 mg PO DAILY [facility] Last Admin: 12/04/16 10:44 Dose: 10 mg Heparin Sodium (Porcine) (Heparin) 5,000 units SC Q12 [facility] Last Admin: 12/04/16 10:44 Dose: 5,000 units Sodium Chloride (Sodium Chloride 0.9%) 1,000 mls @ 75 mls/hr IV .[id number] [facility] Last Admin: 12/04/16 18:28 Dose: Not Given Levothyroxine Sodium (Synthroid) 75 mcg PO DAILY@0630 [facility] Last Admin: 12/04/16 05:48 Dose: 75 mcg Lidocaine (Lidoderm) 1 ea TD DAILY [facility] Last Admin: 12/04/16 10:45 Dose: 1 ea Oxycodone/Acetaminophen (Percocet 5/325 Mg Tab) 1 tab PO Q4H PRN PRN Reason: Pain, Mild (1-3) Stop: 12/05/16 10:28 Last Admin: 12/04/16 11:11 Dose: 1 tab Pantoprazole Sodium (Protonix Ec Tab) 40 mg PO DAILY [facility] Last Admin: 12/04/16 11:10 Dose: 40 mg Tramadol HCl (Ultram) 25 mg PO TID PRN PRN Reason: Pain, severe (8-10) Last Admin: 12/02/16 03:07 Dose: 25 mg - Labs Labs: 12/04/16 08:13 12/04/16 08:13 Assessment and Plan - Assessment and Plan (Free Text) Plan: Patient seen and evaluated with medical support assistant Plan of care discussed as described
[2016-12-04 16:14] LABS: TOTAL PROTEIN, SERUM 6.8 g/dL (6.1-8.1)
[2016-12-04] MEDS ORDERED: Lidocaine 5% Patch TD SCH (21:30)
[2016-12-05] MEDS: Oxycodone/Acetaminophen 5/325 mg Tab PO PRN (04:54)
[2016-12-05] MEDS: Levothyroxine 75 MCG TAB PO SCH (05:33)
[2016-12-05 07:21] LABS: BASO # 0.1 K/uL (0.0-0.2); BASO % 0.9 % (0.0-2.0); EOS # 0.1 K/uL (0.0-0.7); HEMATOCRIT 25.5 % (34.0-47.0); LYMPH # 1.2 K/uL (1.0-4.3); LYMPH % 18.6 % (20.0-40.0); MEAN CELL VOLUME 96.5 fL (81.0-99.0); MEAN CORPUSCULAR HGB CONC 33.2 g/dL (33.0-37.0); MEAN PLATELET VOLUME 8.4 fL (7.2-11.7); MONO # 0.4 K/uL (0.0-0.8); MONO % 5.6 % (0.0-10.0); NRBC % 0.1 % (0.0-2.0); RED CELL DISTRIBUTION WIDTH 17.2 % (11.5-14.5); WHITE BLOOD COUNT 6.5 K/uL (4.8-10.8)
[2016-12-05] MEDS: Budesonide 0.25 mg/2 ml Inhal Susp UD INH SCH (07:36)
[2016-12-05 08:08] LABS: POTASSIUM 4.2 mmol/L (3.6-5.2)
[2016-12-05 08:10] LABS: ALB/GLOB RATIO 1.1 (1.0-2.1); BILIRUBIN,TOTAL 0.4 mg/dL (0.2-1.3); TOTAL PROTEIN 5.9 g/dL (6.3-8.3)
[2016-12-05 08:11] LABS: CALCIUM 12.1 mg/dl (8.6-10.4); MAGNESIUM 1.7 mg/dL (1.6-2.3)
[2016-12-05 08:45] LABS: PHOSPHOROUS 4.4 mg/dL (2.5-4.5)
[2016-12-05] MEDS: diltiaZEM 240 mg/24 Hours CD Cap PO SCH (09:45)
[2016-12-05] MEDS: GlipiZIDE 10 mg SR Tab PO SCH (09:46)
[2016-12-05] MEDS: Pantoprazole 40 mg EC Tab PO SCH (09:46)
--- NOTE | 2016-12-05 16:08 | CP.PCM.PN ---
Subjective - Date & Time of Evaluation Date of Evaluation: 12/05/16 Time of Evaluation: 16:05 - Subjective Subjective: improved chest pain good uop denies any nausea vomiting diarrhea Objective - Vital Signs/Intake and Output Vital Signs (last 24 hours): Temp Pulse Resp BP Pulse Ox 98.5 F 76 18 130/65 95 12/05/16 07:05 12/05/16 13:30 12/05/16 07:05 12/05/16 07:05 12/05/16 07:05 Intake and Output: 12/05/16 12/05/16 06:59 18:59 Intake Total 450 Balance 450 - Medications Medications: Current Medications Albuterol (Ventolin Hfa 90 Mcg/Actuation (8 G)) 1 puff INH RQ6 PRN PRN Reason: Shortness of Breath Amiodarone HCl (Cordarone) 200 mg PO DAILY [facility] Last Admin: 12/05/16 09:45 Dose: 200 mg Budesonide (Pulmicort Respules) 0.25 mg INH RQ12 [facility] Last Admin: 12/05/16 07:36 Dose: 0.25 mg Cyclobenzaprine HCl (Flexeril) 5 mg PO HS [facility] Last Admin: 12/04/16 21:12 Dose: 5 mg Diltiazem HCl (Cardizem Cd) 240 mg PO DAILY [facility] Last Admin: 12/05/16 09:45 Dose: 240 mg Docusate Sodium (Colace) 100 mg PO BID [facility] Last Admin: 12/05/16 09:46 Dose: 100 mg Glipizide (Glucotrol Xl) 10 mg PO DAILY [facility] Last Admin: 12/05/16 09:46 Dose: 10 mg Heparin Sodium (Porcine) (Heparin) 5,000 units SC Q12 [facility] Last Admin: 12/05/16 11:00 Dose: Not Given Sodium Chloride (Sodium Chloride 0.9%) 1,000 mls @ 75 mls/hr IV .[id number] [facility] Last Admin: 12/04/16 21:13 Dose: 75 mls/hr Levothyroxine Sodium (Synthroid) 75 mcg PO DAILY@0630 [facility] Last Admin: 12/05/16 05:33 Dose: 75 mcg Lidocaine (Lidoderm) 1 ea TD Q24H [facility] Last Admin: 12/04/16 21:33 Dose: 1 ea Pantoprazole Sodium (Protonix Ec Tab) 40 mg PO DAILY [facility] Last Admin: 12/05/16 09:46 Dose: 40 mg Tramadol HCl (Ultram) 25 mg PO TID PRN PRN Reason: Pain, severe (8-10) Last Admin: 12/02/16 03:07 Dose: 25 mg - Labs Labs: 12/05/16 07:09 12/05/16 07:09 - Constitutional Appears: Non-toxic, No Acute Distress - Head Exam Head Exam: NORMAL INSPECTION - Eye Exam Eye Exam: Normal appearance - ENT Exam ENT Exam: Mucous Membranes Moist, Normal Exam - Neck Exam Neck Exam: Normal Inspection - Respiratory Exam Respiratory Exam: Clear to Ausculation Bilateral, NORMAL BREATHING PATTERN - Cardiovascular Exam Cardiovascular Exam: RRR - GI/Abdominal Exam GI & Abdominal Exam: Normal Bowel Sounds - Extremities Exam Extremities Exam: Normal Inspection Assessment and Plan (1) Back pain of thoracolumbar region Status: Acute (2) Worsening renal function Status: Acute (3) Acute kidney injury Status: Acute (4) Atrial fibrillation with controlled ventricular response Status: Acute (5) Chest pain Status: Acute - Assessment and Plan (Free Text) Assessment: renl us unremarkable no acei / arb daily chems
[2016-12-05 16:14] VITALS: BP 123/78; PULSE 69; RESP 20; TEMP 98.3; O2SAT 96
--- NOTE | 2016-12-05 17:08 | CP.PCM.PN ---
Subjective - Date & Time of Evaluation Date of Evaluation: 12/05/16 Time of Evaluation: 17:00 - Subjective Subjective: Patient was seen and examined at 5 PM 12/05/16 659 B Exam: Respiratory:Bilateral inspiratory rales lower lung eng otherwise uremarkable Assessments: 1). Chest Pain that is reproducible (left pectoralis area) 2). Chronic Diastolic HF 3). MARIA EUGENIA: baseline BUN/Cr is 17/1.4 (10/02/16). Continue IVF at 75 ml per hour. BUN/Cr 28/2.3 today. Marine Electrician Helper spoke with Point Of Care Technician Dr. Sotelo and ok discharge from renal standpoint 4). Hx Anemia Likely Secondary to Chronic Disease 5). Hx Asthma 6). Hx Atrial Fibrillation 7). Hx DM 2 8). Hx Hypothyroidism 9). Hx Chronic LBP The following instructions will need to be provided to patient upon discharge: 1). Please schedule follow up with your Primary Care Physician Dr. Winkler to take place in with the next 7 days. 2). Through Dr. Winkler's office you will need to have basic blood work repeated : CBC with differential and CMP. Please make sure that Dr. Winkler faxes a copy of the results of the blood work to Dr. Bill's office. 3). Schedule follow up with your Point Of Care Technician Dr. Bill to take place a few days after seeing Dr. Winkler and having the blood work performed. 4). Schedule follow up with your Documentation Clerk Dr. Lynch to take place in the next 14 days. 5). You were given prescriptions for the following medications and please take as directed: Amiodarone 200 mg, 1 tablet by mouth 1x/day, Disp #30, NO refills Pulmicort Flexhaler 90 mcg, 1 inhalation by mouth 2x/day , Disp #1, NO refills Cardizem CD 240 mg, 1 tablet by mouth 1x/day, Disp #30, NO refills Ferrous Sulfate 325 mg, 1 tablet by mouth 1x/day, Disp #30, NO refills Glipizide XL 10 mg, 1 tablet by mouth 1x/day (breakfast), Disp #30, NO refills Levothyroxine 75 mcg, 1 tablet by mouth 1x/day, Disp #30, NO refills Omeprazole 20 mg, 1 tablet by mouth 1x/day, Disp #30, NO refills Anoro Ellipta 62.5-24 mcg, 1 inhalation by mouth 1x/day, Disp #1, NO refills Lidoderm Patch 5%, 1 patch to the back 1x/day as needed for severe back pain, Disp #10, NO refills 6). You must also take Aspirin 81 mg 1 tablet by mouth 1x/day. You do not need a prescription to purchase this. You will need to have your blood monitored through Dr. Winkler's office to make sure that your Anemia is not worsening. 7). Please take care and be well. Mook Penn D.O. Objective - Vital Signs/Intake and Output Vital Signs (last 24 hours): Temp Pulse Resp BP Pulse Ox 98.3 F 69 20 123/78 96 12/05/16 15:08 12/05/16 15:08 12/05/16 15:08 12/05/16 15:08 12/05/16 15:08 Intake and Output: 12/05/16 12/05/16 06:59 18:59 Intake Total 450 1000 Output Total 0 Balance 450 1000 - Medications Medications: Current Medications Albuterol (Ventolin Hfa 90 Mcg/Actuation (8 G)) 1 puff INH RQ6 PRN PRN Reason: Shortness of Breath Amiodarone HCl (Cordarone) 200 mg PO DAILY [facility] Last Admin: 12/05/16 09:45 Dose: 200 mg Budesonide (Pulmicort Respules) 0.25 mg INH RQ12 [facility] Last Admin: 12/05/16 07:36 Dose: 0.25 mg Cyclobenzaprine HCl (Flexeril) 5 mg PO HS [facility] Last Admin: 12/04/16 21:12 Dose: 5 mg Diltiazem HCl (Cardizem Cd) 240 mg PO DAILY [facility] Last Admin: 12/05/16 09:45 Dose: 240 mg Docusate Sodium (Colace) 100 mg PO BID [facility] Last Admin: 12/05/16 09:46 Dose: 100 mg Glipizide (Glucotrol Xl) 10 mg PO DAILY [facility] Last Admin: 12/05/16 09:46 Dose: 10 mg Heparin Sodium (Porcine) (Heparin) 5,000 units SC Q12 [facility] Last Admin: 12/05/16 11:00 Dose: Not Given Sodium Chloride (Sodium Chloride 0.9%) 1,000 mls @ 75 mls/hr IV .[id number] [facility] Last Admin: 12/04/16 21:13 Dose: 75 mls/hr Levothyroxine Sodium (Synthroid) 75 mcg PO DAILY@0630 [facility] Last Admin: 12/05/16 05:33 Dose: 75 mcg Lidocaine (Lidoderm) 1 ea TD Q24H [facility] Last Admin: 12/04/16 21:33 Dose: 1 ea Pantoprazole Sodium (Protonix Ec Tab) 40 mg PO DAILY [facility] Last Admin: 12/05/16 09:46 Dose: 40 mg Tramadol HCl (Ultram) 25 mg PO TID PRN PRN Reason: Pain, severe (8-10) Last Admin: 12/02/16 03:07 Dose: 25 mg - Labs Labs: 12/05/16 07:09 12/05/16 07:09
--- NOTE | 2016-12-05 17:14 | CP.PCM.DIS ---
Provider - Provider Date of Admission: 12/01/16 10:23 Attending physician: Bishop Buenrostro MD Time Spent in preparation of Discharge (in minutes): 32 Diagnosis - Discharge Diagnosis (1) Chest pain Status: Acute (2) Chronic diastolic (congestive) heart failure Status: Chronic (3) Asthma Status: Chronic (4) Atrial fibrillation Status: Chronic (5) Anemia Status: Chronic (6) Hypothyroidism Status: Chronic (7) Diabetes Status: Chronic (8) Prophylactic measure Status: Acute Hospital Course - Lab Results Lab Results: Most Recent Lab Values WBC 6.5 K/uL (4.8-10.8) 12/05/16 07:09 RBC 2.64 Mil/uL (3.80-5.20) L 12/05/16 07:09 Hgb 8.4 g/dL (11.0-16.0) L 12/05/16 07:09 Hct 25.5 % (34.0-47.0) L 12/05/16 07:09 MCV 96.5 fL (81.0-99.0) 12/05/16 07:09 MCH 32.0 pg (27.0-31.0) H 12/05/16 07:09 MCHC 33.2 g/dL (33.0-37.0) 12/05/16 07:09 RDW 17.2 % (11.5-14.5) H 12/05/16 07:09 Plt Count 194 K/uL (130-400) 12/05/16 07:09 MPV 8.4 fL (7.2-11.7) 12/05/16 07:09 Neut % (Auto) 72.9 % (50.0-75.0) 12/05/16 07:09 Lymph % (Auto) 18.6 % (20.0-40.0) L 12/05/16 07:09 [place] % (Auto) 5.6 % (0.0-10.0) 12/05/16 07:09 Eos % (Auto) 2.0 % (0.0-4.0) 12/05/16 07:09 Baso % (Auto) 0.9 % (0.0-2.0) 12/05/16 07:09 Neut # 4.7 K/uL (1.8-7.0) 12/05/16 07:09 Lymph # 1.2 K/uL (1.0-4.3) 12/05/16 07:09 [place] # 0.4 K/uL (0.0-0.8) 12/05/16 07:09 Eos # 0.1 K/uL (0.0-0.7) 12/05/16 07:09 Baso # 0.1 K/uL (0.0-0.2) 12/05/16 07:09 Sodium 137 mmol/L (132-148) 12/05/16 07:09 Potassium 4.2 mmol/L (3.6-5.2) 12/05/16 07:09 Chloride 101 mmol/L (98-107) 12/05/16 07:09 Carbon Dioxide 28 mmol/L (22-30) 12/05/16 07:09 Anion Gap 13 (10-20) 12/05/16 07:09 BUN 28 mg/dL (7-17) H 12/05/16 07:09 Creatinine 2.3 MG/DL (0.7-1.2) H 12/05/16 07:09 Est GFR ( Amer) 25 12/05/16 07:09 Est GFR (Non-Af Amer) 20 12/05/16 07:09 POC Glucose (mg/dL) 120 mg/dL (65-110) H 12/05/16 11:42 Random Glucose 91 mg/dL (65-105) 12/05/16 07:09 Hemoglobin A1c 6.3 % (4.2-6.5) 12/02/16 07:12 Calcium 12.1 mg/dl (8.6-10.4) H 12/05/16 07:09 Phosphorus 4.4 mg/dL (2.5-4.5) 12/05/16 07:09 Magnesium 1.7 mg/dL (1.6-2.3) 12/05/16 07:09 Total Bilirubin 0.4 mg/dL (0.2-1.3) 12/05/16 07:09 AST 19 U/L (14-36) 12/05/16 07:09 ALT 27 U/L (9-52) 12/05/16 07:09 Alkaline Phosphatase 53 U/L (38-126) 12/05/16 07:09 Total Creatine Kinase 50 U/L (30-135) 12/02/16 17:17 CK-MB (Mass) 0.86 ng/mL (0.0-3.38) 12/01/16 20:50 Troponin I < 0.0120 ng/mL (0.00-0.120) 12/01/16 08:24 Troponin I, Quant < 0.0120 ng/mL (0.00-0.120) 12/01/16 20:50 NT-Pro-B Natriuret Pep 938 pg/mL (0-900) H 12/01/16 08:24 Total Protein 5.9 g/dL (6.3-8.3) L 12/05/16 07:09 Total Protein (PEP) 6.8 g/dL (6.1-8.1) 12/02/16 17:20 Albumin 3.1 g/dL (3.5-5.0) L 12/05/16 07:09 Globulin 2.8 gm/dL (2.2-3.9) 12/05/16 07:09 Albumin/Globulin Ratio 1.1 (1.0-2.1) 12/05/16 07:09 Triglycerides 102 mg/dL (0-149) D 12/02/16 07:12 Cholesterol 126 mg/dL (0-199) 12/02/16 07:12 LDL Cholesterol Direct 66 mg/dL (0-129) 12/02/16 07:12 HDL Cholesterol 39 mg/dL (30-70) 12/02/16 07:12 Free T4 2.08 ng/dL (0.78-2.19) 12/02/16 07:12 TSH 3rd Generation 16.30 mIU/L (0.46-4.68) H 12/02/16 07:12 Urine Color Yellow (YELLOW) 12/02/16 16:23 Urine Clarity Clear (Clear) 12/02/16 16:23 Urine pH 6.0 (5.0-8.0) 12/02/16 16:23 Ur Specific [place] 1.011 (1.003-1.030) 12/02/16 16:23 Urine Protein 1+ mg/dL (NEGATIVE) H 12/02/16 16:23 Urine Glucose (UA) Normal mg/dL (Normal) 12/02/16 16:23 Urine Ketones Negative mg/dL (NEGATIVE) 12/02/16 16:23 Urine Blood Negative (NEGATIVE) 12/02/16 16:23 Urine Nitrate Negative (NEGATIVE) 12/02/16 16:23 Urine Bilirubin Negative (NEGATIVE) 12/02/16 16:23 Urine Urobilinogen Normal mg/dL (0.2-1.0) 12/02/16 16:23 Ur Leukocyte Esterase Neg Roman/uL (Negative) 12/02/16 16:23 Urine WBC (Auto) 2 /hpf (0-5) 12/02/16 16:23 Urine RBC (Auto) < 1 /hpf (0-3) 12/01/16 09:49 Ur Squamous Epith Cells < 1 /hpf (0-5) 12/02/16 16:23 Urine Bacteria Rare (<OCC) 12/01/16 09:49 U Random Total Protein 522.0 mg/dL (0.0-12.0) H 12/04/16 22:30 Ur Random Sodium 88 mmol/L 12/02/16 16:23 - Hospital Course Hospital Course: On admission: "This is a 81 year old female with PMHx CHF, Afib (not on AC due to anemia), HTN , anemia, DM, hypothyroidism, Gastritis who presented to the ED with lower back pain that radiates to the chest. Pain began 1 week prior and has been gradually worsening. Back pain described as 10/10 sharp. It is relieved with ice and lying down. Yesterday, the patient has started experiencing radiation of pain to the left sided chest wall and across the right side of the abdomen. The radiation of pain to the chest is what prompted the patient to seek medical care. The chest pain is described as 7/10 sharp pain and has never occurred before. Patient complains of bilateral leg weakness and worsening leg swelling for 1 week. Also complains of SOB and orthopnea but denies PND, palpitations, cough, dizziness, weight changes. " Hospital Course: Patient admitted for chest pain. BNP was mildly elevated (938) on admission. Dr. Little (head of global strategic partnerships) consulted for the Acute on Chronic Diastolic Congestive Heart Failure. Dr. Sotelo (manager development) consulted for Acute on Chronic exacerbation of Chronic Kidney Disease. Patient was receiving Lasix which was later discontinued per nephro recommendation, and instead, gentle hydration was given due to current renal situation. Renal U/S showed echogenic renal parenchyma seen in renal disease. 1.6 cm right lower pole and 2.4 cm right parapelvic cyst. Prior Echocardiogram 06/2016 shows EF 83%. borderline LVH. L ventricular function normal. mitral valve leaflets thickened, calcified mitral regurgitation , mild-moderate mitral regurgitation, moderate to severe pulmonary HTN. Dr. Little commented that the CHF was stable stating that patient's elevated BNP on admission is likely normal for the patient given her age. So her CHF for this admission will be classified as Chronic Diastolic Congestive Heart Failure. Dr. Sotelo and Dr. Little have cleared the patient, and patient is medically stable per primary team. Dr. Little recommended addition of aspirin [address] Sotelo recommends a follow up with Dr. Bill within 1 week of discharge and standard labwork prior to appointment. This is a summary of the hospital course. For more information, refer to the medical records. 1). Please schedule follow up with your Primary Care Physician Dr. Winkler to take place in with the next 7 days. 2). Through Dr. Winkler's office you will need to have basic blood work repeated : CBC with differential and CMP. Please make sure that Dr. Winkler faxes a copy of the results of the blood work to Dr. Bill's office. 3). Schedule follow up with your Internet Merchant Dr. Bill to take place a few days after seeing Dr. Winkler and having the blood work performed. 4). Schedule follow up with your Polisher And Buffer Dr. Lynch to take place in the next 14 days. 5). You were given prescriptions for the following medications and please take as directed: Amiodarone 200 mg, 1 tablet by mouth 1x/day, Disp #30, NO refills Pulmicort Flexhaler 90 mcg, 1 inhalation by mouth 2x/day , Disp #1, NO refills Cardizem CD 240 mg, 1 tablet by mouth 1x/day, Disp #30, NO refills Ferrous Sulfate 325 mg, 1 tablet by mouth 1x/day, Disp #30, NO refills Glipizide XL 10 mg, 1 tablet by mouth 1x/day (breakfast), Disp #30, NO refills Levothyroxine 75 mcg, 1 tablet by mouth 1x/day, Disp #30, NO refills Omeprazole 20 mg, 1 tablet by mouth 1x/day, Disp #30, NO refills Anoro Ellipta 62.5-24 mcg, 1 inhalation by mouth 1x/day, Disp #1, NO refills Lidoderm Patch 5%, 1 patch to the back 1x/day as needed for severe back pain, Disp #10, NO refills 6). You must also take Aspirin 81 mg 1 tablet by mouth 1x/day. You do not need a prescription to purchase this. You will need to have your blood monitored through Dr. Winkler's office to make sure that your Anemia is not worsening. 7). Please take care and be well. 1). Ti preghiamo di programmare il follow-up con il tuo medico curante primario Dr. Winkler abdoulaye avr abran nei prossimi 7 giorni. 2). Attraverso l'ufficio del haily Cathi dovrai ripetere il lavoro di sangue di base: CBC con differenziale e CMP. Assicurati abdoulaye il haily Winkler faccia kisha copia dei risultati del lavoro di sangue all'ufficio del haily Bill. 3). Pianificare il follow-up con il tuo nefrologo Dr. Bill per courtney castillouni giorni dopo aver visto il jayclaudia Cathi e aver eseguito il lavoro di sangue. 4). Pianificare il follow-up con il tuo cardiologo Dr. Lynch abdoulaye si micky nei prossimi 14 giorni. 5). Lei stato prescritto per i seguenti farmaci e si prega di prendere come indicato: Amiodarone 200 mg, 1 compressa per bocca 1x / giorno, Disp # 30, NO ricariche Pulmicort Flexhaler 90 mcg, 1 inalazione per bocca 2x / giorno, Disp # 1, NO ricariche Cardizem CD 240 mg, 1 compressa per bocca 1x / giorno, Disp # 30, NO ricariche Ferroso Solfato 325 mg, 1 compressa per bocca 1x / giorno, Disp # 30, NO ricariche Glipizide XL 10 mg, 1 compressa per bocca 1x / giorno (colazione), Disp # 30, NO ricariche Levothyroxine 75 mcg, 1 compressa per bocca 1x / giorno, Disp # 30, NO ricariche Omeprazolo 20 mg, 1 compressa per bocca 1x / giorno, Disp # 30, NO ricariche Anoro Ellipta 62,5-24 mcg, 1 inalazione per bocca 1x / giorno, Disp # 1, NO ricariche Lidoderm Patch 5%, 1 patch sul retro 1x / giorno come necessario per i shalini moreno, Disp # 10, NO ricariche 6). inoltre necessario prendere Aspirin 81 mg 1 compressa per bocca 1x / giorno. Non timmy bisogno di kisha prescrizione per acquistare questo. Avrai bisogno di controllare il sangue attraverso l'ufficio del dottor Cathi per assicurarsi abdoulaye l'Anemia non stia peggiorando. 7). Si prega di prendersi reggie e di essere bene. - Date & Time of H&P Date of H&P: 12/05/16 Time of H&P: 17:00 Discharge Exam - Head Exam Head Exam: ATRAUMATIC, NORMAL INSPECTION - Eye Exam Eye Exam: EOMI, PERRL - ENT Exam ENT Exam: Mucous Membranes Moist - Respiratory Exam Respiratory Exam: Clear to PA & Lateral. absent: Rales, Rhonchi, Wheezes - Cardiovascular Exam Cardiovascular Exam: REGULAR RHYTHM, +S1, +S2 - GI/Abdominal Exam GI & Abdominal Exam: Normal Bowel Sounds, Soft. absent: Tenderness - Extremities Exam Extremities exam: pedal pulses present Additional comments: No pedal edema - Neurological Exam Neurological exam: Alert, CN II-XII Intact, Oriented x3 - Skin Skin Exam: Dry, Intact, Normal Color, Warm Discharge Plan - Discharge Medications Prescriptions: Amiodarone [Cordarone] 200 mg PO DAILY #30 tab Budesonide [Pulmicort Flexhaler] 90 mcg IH Q12H #1 aer.pow.[email or web address] Diltiazem HCl [Diltiazem 24Hr ER] 240 mg PO DAILY #30 capsule.er Ferrous Sulfate [Feosol] 325 mg PO DAILY #30 tab Glipizide [Glipizide Xl] 10 mg PO DAILY #30 tab.er.24 Levothyroxine [Synthroid] 75 mcg PO DAILY@0630 #30 tab Lidocaine 5% [Lidoderm] 1 ea TD Q24H #10 patch Omeprazole 20 mg PO DAILY #30 Umeclidinium Brm/Vilanterol Tr [Anoro Ellipta 62.5-25 Mcg INH] 1 pow IH DAILY # 1 - Follow Up Plan Condition: STABLE Disposition: HOME/ ROUTINE Instructions: Iron Supplements (By mouth), Diltiazem (By mouth), Levothyroxine (By mouth), Omeprazole (By mouth), Amiodarone (By mouth), Budesonide (By breathing), Lidocaine Patch (On the skin), Umeclidinium/Vilanterol (By breathing ), Heart Failure (DC), Acute Kidney Injury (DC), Chronic Kidney Disease (DC), Renal Failure Diet (DC), Heart Healthy Diet (DC) Additional Instructions: 1). Please schedule follow up with your Primary Care Physician Dr. Winkler to take place in with the next 7 days. 2). Through Dr. Winkler's office you will need to have basic blood work repeated : CBC with differential and CMP. Please make sure that Dr. Winkler faxes a copy of the results of the blood work to Dr. Bill's office. 3). Schedule follow up with your Internet Merchant Dr. Bill to take place a few days after seeing Dr. Winkler and having the blood work performed. 4). Schedule follow up with your Polisher And Buffer Dr. Lynch to take place in the next 14 days. 5). You were given prescriptions for the following medications and please take as directed: Amiodarone 200 mg, 1 tablet by mouth 1x/day, Disp #30, NO refills Pulmicort Flexhaler 90 mcg, 1 inhalation by mouth 2x/day , Disp #1, NO refills Cardizem CD 240 mg, 1 tablet by mouth 1x/day, Disp #30, NO refills Ferrous Sulfate 325 mg, 1 tablet by mouth 1x/day, Disp #30, NO refills Glipizide XL 10 mg, 1 tablet by mouth 1x/day (breakfast), Disp #30, NO refills Levothyroxine 75 mcg, 1 tablet by mouth 1x/day, Disp #30, NO refills Omeprazole 20 mg, 1 tablet by mouth 1x/day, Disp #30, NO refills Anoro Ellipta 62.5-24 mcg, 1 inhalation by mouth 1x/day, Disp #1, NO refills Lidoderm Patch 5%, 1 patch to the back 1x/day as needed for severe back pain, Disp #10, NO refills 6). You must also take Aspirin 81 mg 1 tablet by mouth 1x/day. You do not need a prescription to purchase this. You will need to have your blood monitored through Dr. Winkler's office to make sure that your Anemia is not worsening. 7). Please take care and be well. 1). Ti preghiamo di programmare il follow-up con il tuo medico curante primario Dr. Winkler abdoulaye avr abran nei prossimi 7 giorni. 2). Attraverso l'ufficio del haily Winkler dovrai ripetere il lavoro di sangue di base: CBC con differenziale e CMP. Assicurati abdoulaye il haily Winkler faccia kisha copia dei risultati del lavoro di sangue all'ufficio del haily Bill. 3). Pianificare il follow-up con il tuo nefrologo Dr. Bill per avvenire alcuni giorni dopo aver visto il haily Winkler e aver eseguito il lavoro di sangue. 4). Pianificare il follow-up con il tuo cardiologo Dr. Lynch abdoulaye si micky nei prossimi 14 giorni. 5). Lei stato prescritto per i seguenti farmaci e si prega di prendere come indicato: Amiodarone 200 mg, 1 compressa per bocca 1x / giorno, Disp # 30, NO ricariche Pulmicort Flexhaler 90 mcg, 1 inalazione per bocca 2x / giorno, Disp # 1, NO ricariche Cardizem CD 240 mg, 1 compressa per bocca 1x / giorno, Disp # 30, NO ricariche Ferroso Solfato 325 mg, 1 compressa per bocca 1x / giorno, Disp # 30, NO ricariche Glipizide XL 10 mg, 1 compressa per bocca 1x / giorno (colazione), Disp # 30, NO ricariche Levothyroxine 75 mcg, 1 compressa per bocca 1x / giorno, Disp # 30, NO ricariche Omeprazolo 20 mg, 1 compressa per bocca 1x / giorno, Disp # 30, NO ricariche Anoro Ellipta 62,5-24 mcg, 1 inalazione per bocca 1x / giorno, Disp # 1, NO ricariche Lidoderm Patch 5%, 1 patch sul retro 1x / giorno come necessario per i dolori rj moreno, Disp # 10, NO ricariche 6). inoltre necessario prendere Aspirin 81 mg 1 compressa per bocca 1x / giorno. Non timmy bisogno di kisha prescrizione per acquistare questo. Avrai bisogno di controllare il sangue attraverso l'ufficio del dottor Cathi per assicurarsi abdoulaye l'Anemia non stia peggiorando. 7). Si prega di prendersi reggie e di essere bene. Referrals: Dutch Winkler [Staff Provider] - Rolando Bill MD [Staff Provider] - Marie Lynch MD [Staff Provider] -
--- NOTE | 2016-12-05 18:07 | CP.PCM.PN ---
Subjective - Date & Time of Evaluation Date of Evaluation: 12/05/16 Time of Evaluation: 18:03 - Subjective Subjective: Lorie Gifford, PGY1, Progress Note for Dr. Little: Pt seen and examined at bedside. No acute events overnight. Pt denies cp, denies sob, palpitations, diaphoresis, n/v/d, f/c. Objective - Vital Signs/Intake and Output Vital Signs (last 24 hours): Temp Pulse Resp BP Pulse Ox 98.3 F 69 20 123/78 96 12/05/16 15:08 12/05/16 15:08 12/05/16 15:08 12/05/16 15:08 12/05/16 15:08 Intake and Output: 12/05/16 12/05/16 06:59 18:59 Intake Total 450 1000 Output Total 0 Balance 450 1000 - Medications Medications: Current Medications Albuterol (Ventolin Hfa 90 Mcg/Actuation (8 G)) 1 puff INH RQ6 PRN PRN Reason: Shortness of Breath Amiodarone HCl (Cordarone) 200 mg PO DAILY [facility] Last Admin: 12/05/16 09:45 Dose: 200 mg Budesonide (Pulmicort Respules) 0.25 mg INH RQ12 [facility] Last Admin: 12/05/16 07:36 Dose: 0.25 mg Cyclobenzaprine HCl (Flexeril) 5 mg PO HS [facility] Last Admin: 12/04/16 21:12 Dose: 5 mg Diltiazem HCl (Cardizem Cd) 240 mg PO DAILY [facility] Last Admin: 12/05/16 09:45 Dose: 240 mg Docusate Sodium (Colace) 100 mg PO BID [facility] Last Admin: 12/05/16 09:46 Dose: 100 mg Glipizide (Glucotrol Xl) 10 mg PO DAILY [facility] Last Admin: 12/05/16 09:46 Dose: 10 mg Heparin Sodium (Porcine) (Heparin) 5,000 units SC Q12 [facility] Last Admin: 12/05/16 11:00 Dose: Not Given Sodium Chloride (Sodium Chloride 0.9%) 1,000 mls @ 75 mls/hr IV .[id number] [facility] Last Admin: 12/04/16 21:13 Dose: 75 mls/hr Levothyroxine Sodium (Synthroid) 75 mcg PO DAILY@0630 [facility] Last Admin: 12/05/16 05:33 Dose: 75 mcg Lidocaine (Lidoderm) 1 ea TD Q24H [facility] Last Admin: 12/04/16 21:33 Dose: 1 ea Pantoprazole Sodium (Protonix Ec Tab) 40 mg PO DAILY [facility] Last Admin: 12/05/16 09:46 Dose: 40 mg Tramadol HCl (Ultram) 25 mg PO TID PRN PRN Reason: Pain, severe (8-10) Last Admin: 12/02/16 03:07 Dose: 25 mg - Labs Labs: 12/05/16 07:09 12/05/16 07:09 - Constitutional Appears: No Acute Distress - Head Exam Head Exam: ATRAUMATIC, NORMOCEPHALIC - Eye Exam Eye Exam: PERRL - ENT Exam ENT Exam: Mucous Membranes Moist - Respiratory Exam Respiratory Exam: Clear to Ausculation Bilateral - Cardiovascular Exam Cardiovascular Exam: RRR, +S1, +S2. absent: Murmur - GI/Abdominal Exam GI & Abdominal Exam: Soft, Normal Bowel Sounds. absent: Tenderness - Extremities Exam Extremities Exam: absent: Calf Tenderness, Pedal Edema - Neurological Exam Neurological Exam: Alert, Awake, Oriented x3 - Psychiatric Exam Psychiatric exam: Normal Mood - Skin Skin Exam: Dry, Intact, Warm Assessment and Plan - Assessment and Plan (Free Text) Assessment: 81F with PMH anemia requiring multiple transfusions in the past, afib (not on AC d/t anemia), diastolic CHF, DM, asthma, GERD, hypothyroid, Hep C (treated), CKD, admitted for cp, r/o ACS. Also found to have acute on chronic CKD, nephro on board. Cardiology consulted for management of CHF. Pt to be discharged per primary team. Can give baby ASA for AC for afib (since has hx of anemia), can f/ u with Dr. Lynch outpatient. Plan: Chronic Stable CHF: - Echocardiogram 06/2016 shows EF 83%. borderline LVH. L ventricular function normal. mitral valve leaflets thickened, calcified mitral regurgitation, mild- moderate mitral regurg, moderate to severe pulm HTN. - BNP 938, Cr 2.5, with pt's age, likely stable bnp. - Full AL neg - Lasix IV given in ED. - Given no acute CHF exacerbation, can hold off lasix IV per nephro requirement. Hx of afib: - EKG in ED shows HR 82, nsr, QTc mildly prolonged 464. - Currently NSR, HR 72 - C/w rhythm control with Amiodarone and rate controlled with Cardizem 240 mg PO daily. - Not on anticoagulation due to anemia (which required multiple transfusions in the past). On previous admission, EGD and colonoscopy showed no bleed, only gastritis. - Can start on ASA 81 mg, and f/u with Dr. Lynch outpatient. Acute on chronic CKD: - BUN/Cr 33/2.5. will avoid rosetta-in/arb. lasix held. - renal US nrml, echogenic renal parenchyma 1.6 cm R lower pole and 2.4 cm R parapelvic cyst. - Can discharge as per Renal Cleared from Cardio. Discussed with attending, Dr. Sidney Gifford, PGY1
--- NOTE | 2016-12-05 19:32 | PCM.HF ---
Heart Failure Core Measure - Heart Failure Ejection Fraction: 40 % or Greater [id number] Inhibitor Prescribed: No Contraindication/Reason for not providing: Acute exacerbation of chronic kidney disease Beta-Aftab Prescribed: None Contraindication/Reason for not providing: Patient already on Cardizem and heart failure is stable and chronic Angiotensin II Receptor Aftab Prescribed: No Contraindication/Reason for not providing: Acute exacerbation of chronic kidney disease AnticoagulationTherapy for Atrial Fibrillation/Atrialflutter: No Contraindication/Reason for not providing: Due to anemia secondary to chronic disease and iron deficiency Aldosterone Antagonist Prescribed: No Contraindication/Reason for not providing: Acute exacerbation of chronic kidney disease
[2016-12-05 21:07] LABS: ABNORMAL PROTEIN BAND 1 0.21 g/dL (None Detected); BETA 1 GLOBULIN 0.4 g/dL (0.4-0.6); BETA 2 GLOBULIN 0.3 g/dL (0.2-0.5); GAMMA GLOBULIN 0.9 g/dL (0.8-1.7)
== END 2016-12-05 18:41 | disposition home or self-care (01) | DRG 206 ==
LOC: C.ER 07:49 → C.9E 10:23 → C.6T 15:57
PROVIDERS: ADMIT Internal Medicine; ATTEND Internal Medicine
DX: M94.0 Chondrocostal junction syndrome [Tietze] (principal); N17.9 Acute kidney failure, unspecified; E11.22 Type 2 diabetes mellitus with diabetic chronic kidney disease; I13.0 Hypertensive heart and chronic kidney disease with heart failure and stage 1 through stage 4 chronic kidney disease, or unspecified chronic kidney disease; I50.32 Chronic diastolic (congestive) heart failure; I48.2 Chronic atrial fibrillation; M54.5 Low back pain; N18.9 Chronic kidney disease, unspecified; E03.9 Hypothyroidism, unspecified; K29.70 Gastritis, unspecified, without bleeding; Z87.891 Personal history of nicotine dependence; Z80.0 Family history of malignant neoplasm of digestive organs; J45.909 Unspecified asthma, uncomplicated; D63.1 Anemia in chronic kidney disease; E78.5 Hyperlipidemia, unspecified; I27.2 Other secondary pulmonary hypertension; I34.0 Nonrheumatic mitral (valve) insufficiency; K21.9 Gastro-esophageal reflux disease without esophagitis; Z79.82 Long term (current) use of aspirin; Z79.84 Long term (current) use of oral hypoglycemic drugs

== ENCOUNTER 2016-12-25 13:01 | Inpatient (IN) | payer MEDICARE ==
--- NOTE | 2016-12-25 13:26 | C.PDOC ---
History Of Present Illness 81 y/o female with Hx of CHF presents to ED with complaints of worsening sob for last few days. Patient also reports low back pain and chest pain. Patient states she had similar symptoms in November and was admitted for CHF. Patient denies fever, chills, nausea, vomiting, urinary symptoms or any other complaints at this time. Time Seen by Provider: 12/25/16 13:24 Chief Complaint (Nursing): Shortness Of Breath History Per: Patient History/Exam Limitations: no limitations Onset/Duration Of Symptoms: Days Current Symptoms Are (Timing): Still Present Initiating Event: Upper Respiratory Illness Past Medical History Reviewed: Historical Data, Nursing Documentation, Vital Signs Vital Signs: Last Vital Signs Temp 98.2 F 12/25/16 18:30 Pulse 80 12/25/16 18:30 Resp 22 12/25/16 18:30 BP 135/50 L 12/25/16 18:30 Pulse Ox 92 L 12/25/16 19:02 - Medical History PMH: Anemia, Arthritis, Cardia Arrhythmia, CHF, HTN, Hyperlipidemia Surgical History: No Surg Hx - [facility] Procedures EXCISION OF STOMACH, ENDO, DIAGN (06/28/16) INSPECTION OF LOWER INTESTINAL TRACT, ENDO (06/28/16) INSPECTION OF UPPER INTESTINAL TRACT, ENDO (09/25/16) TRANSFUSE NONAUT RED BLOOD CELLS IN PERIPH VEIN, PERC (09/25/16) Family History: States: No Known Family Hx - Social History Hx Tobacco Use: No Hx Alcohol Use: No Hx Substance Use: No - Immunization History Hx Tetanus Toxoid Vaccination: Yes Hx Influenza Vaccination: Yes Hx Pneumococcal Vaccination: Yes Review Of Systems Except As Marked, All Systems Reviewed And Found Negative. Constitutional: Negative for: Fever, Chills Cardiovascular: Positive for: Chest Pain Respiratory: Positive for: Shortness of Breath. Negative for: Cough Gastrointestinal: Negative for: Nausea, Vomiting Genitourinary: Negative for: Dysuria, Hematuria Musculoskeletal: Positive for: Back Pain Skin: Negative for: Rash Physical Exam - Physical Exam Appears: Non-toxic, Other (Morbidly obese) Skin: Normal Color, Warm, No Rash Head: Atraumatic, Normacephalic Eye(s): bilateral: Normal Inspection Oral Mucosa: Moist Chest: Symmetrical Cardiovascular: Rhythm Regular, No Murmur Respiratory: Rales (Crackles bilaterally), No Rhonchi, No Wheezing Gastrointestinal/Abdominal: Soft, No Tenderness, No Guarding, No Rebound Extremity: Normal ROM, Capillary Refill (<2 seconds) Neurological/Psych: Oriented x3, Normal Speech ED Course And Treatment - Laboratory Results Result Diagrams: 12/25/16 13:53 12/25/16 13:53 ECG: Interpreted By Me, Viewed By Me ECG Rhythm: Sinus Rhythm ECG Interpretation: Normal Rate From EC (bpm) O2 Sat by Pulse Oximetry: 92 (RA) Critical Care Time - Critical Care Note Total Time (in mins): 45 Documented critical care: time excludes all time spent performing seperately billable procedures. Medical Decision Making Medical Decision Making: ro chf, renal failure, pna Plan: - ECG - CXR - Blood work -UA 300: labs show new cr 7.7. k nromal, high ca. cxr shows possible infiltrate vs overload. antibiotics dosed. noted anemia, guiac neg. transfusion ordered. discussed with dr barksdale/dr ruiz, requests lasix, hd catheter placement. discussed with srugical team. pt to or for emergent hd cathter. dr owen accepts Disposition - Disposition Disposition: HOSPITALIZED Disposition Time: 03:00 Condition: CRITICAL - Clinical Impression Clinical Impression: Renal failure, Hypercalcemia, Anemia, CHF (congestive heart failure) - Scribe Statement The provider has reviewed the documentation as recorded by the Scribe Philippe Vera All medical record entries made by the Scribe were at my direction and personally dictated by me. I have reviewed the chart and agree that the record accurately reflects my personal performance of the history, physical exam, medical decision making, and the department course for this patient. I have also personally directed, reviewed, and agree with the discharge instructions and disposition. Decision To Admit - Pt Status Changed To: Hospital Disposition Of: Inpatient - Admit Certification Admit to Inpatient:: After my assessment, the patient will require hospitalization for at least two midnights. This is because of the severity of symptoms shown, intensity of services needed, and/or the medical risk in this patient being treated as an outpatient. - InPatient: Physician Admission Certification: I certify that this patient requires 2 or more midnights of care for the following reason:: pt needs emergent hd. - . Bed Request Type: ICU Admitting Physician: Bishop Buenrostro Patient Diagnosis: Renal failure, Hypercalcemia, Anemia, CHF (congestive heart failure)
[2016-12-25 13:59] LABS: BASO # 0.1 K/uL (0.0-0.2); BASO % 0.4 % (0.0-2.0); EOS # 0.2 K/uL (0.0-0.7); EOS % 1.2 % (0.0-4.0); HEMATOCRIT 21.1 % (34.0-47.0); LYMPH % 7.2 % (20.0-40.0); MEAN CELL VOLUME 96.5 fL (81.0-99.0); MEAN CORPUSCULAR HGB CONC 33.1 g/dL (33.0-37.0); MEAN PLATELET VOLUME 7.8 fL (7.2-11.7); MONO # 0.4 K/uL (0.0-0.8); MONO % 2.9 % (0.0-10.0); NRBC % 0.3 % (0.0-2.0); PLATELET COUNT 357 K/uL (130-400); RED CELL DISTRIBUTION WIDTH 17.4 % (11.5-14.5); WHITE BLOOD COUNT 14.2 K/uL (4.8-10.8)
[2016-12-25 14:06] LABS: INR 1.2
[2016-12-25 14:11] LABS: ALB/GLOB RATIO 1.3 (1.0-2.1); BILIRUBIN,TOTAL 0.5 mg/dL (0.2-1.3); POTASSIUM 4.6 mmol/L (3.6-5.2); TOTAL PROTEIN 6.9 g/dL (6.3-8.3)
[2016-12-25 14:26] LABS: TROPONIN I 0.076 ng/mL (0.00-0.120)
--- NOTE | 2016-12-25 14:35 | RAD ---
Chest x-ray single frontal view History: Chest pain. Comparison: 12/01/2016 Findings: Prominent diffuse increased interstitial lung markings throughout both lungs suggestive for edema and or infiltrate. Prominent confluent consolidative changes in the left mid to lower lung zone with small left pleural effusion. Biapical pleural thickening with upper lobe granulomatous changes. Cardiomegaly. Degenerative changes in the spine and shoulders. Impression: Prominent diffuse increased interstitial lung markings throughout both lungs suggestive for edema and or infiltrate. Prominent confluent consolidative changes in the left mid to lower lung zone with small left pleural effusion. Biapical pleural thickening with upper lobe granulomatous changes. Cardiomegaly.
[2016-12-25] MEDS ORDERED: Piperacillin/Tazobact 3.375 gm 100 ML IVPB STA (14:37)
[2016-12-25 14:53] LABS: EOSINOPHIL 1 % (0-4); NEUTROPHIL 89 % (50-75); NUCLEATED RED BLOOD CELL 2 % (0-0); TOTAL CELLS COUNTED 100
[2016-12-25] MEDS ORDERED: Piperacillin/Tazobact 3.375 gm 100 ML IVPB ONE (14:53)
[2016-12-25 14:55] LABS: CALCIUM 13.6 mg/dl (8.6-10.4)
[2016-12-25] MEDS ORDERED: Vancomycin 1 GM 1 GM/250 ML BAG IVPB ONE (15:50)
--- NOTE | 2016-12-25 16:08 | CP.PCM.CON ---
History of Present Illness - History of Present Illness History of Present Illness: Vasc Sx: Dr Ontiveros Pt is 81F presented to ED for sob. Called by ED attending, after speaking with Dr Bill (nephrology), pt will need urgent dialysis access given her fluid overload and hypercalcemia. Pt has no prior history of kidney dysfunction. Pt is not currently on any blood thinners. Need for procedure explained to pt and who is bedside. Risks, benefits explained. Pt consents to procedure. Review of Systems - Review of Systems Systems not reviewed;Unavailable: Language Barrier All systems: reviewed and no additional remarkable complaints except Past Patient History - Past Medical History & Family History Past Medical History?: Yes - Past Social History Smoking Status: Former Smoker - CARDIAC Hx Cardia Arrhythmia: Yes Hx Congestive Heart Failure: Yes Hx Hypertension: Yes - PULMONARY Hx Respiratory Disorders: No - NEUROLOGICAL Hx Neurological Disorder: No - HEENT Hx HEENT Problems: Yes Hx Cataracts: Yes (bilateral) - RENAL Hx Chronic Kidney Disease: Yes Other/Comment: RENAL INSUFFICIENCY - ENDOCRINE/METABOLIC Hx Endocrine Disorders: Yes Hx Diabetes Mellitus Type 2: Yes Hx Hypothyroidism: Yes - HEMATOLOGICAL/ONCOLOGICAL Hx Anemia: Yes - INTEGUMENTARY Hx Dermatological Problems: No - MUSCULOSKELETAL/RHEUMATOLOGICAL Hx Arthritis: Yes - GASTROINTESTINAL Hx Gastrointestinal Disorders: Yes Hx Colostomy: Yes Hx Hemorrhoids: Yes - GENITOURINARY/GYNECOLOGICAL Hx Genitourinary Disorders: No - PSYCHIATRIC Hx Substance Use: No - SURGICAL HISTORY Hx Surgeries: No - ANESTHESIA Hx Anesthesia: No Hx Anesthesia Reactions: No Hx Malignant Hyperthermia: No Meds Allergies/Adverse Reactions: Allergies Allergy/AdvReac Type Severity Reaction Status Date / Time No Known Allergies Allergy Verified 12/01/16 07:55 - Medications Medications: Current Medications Vancomycin HCl 1 gm/ Sodium (Chloride) 250 mls @ 166.7 mls/hr IVPB STAT STA Stop: 12/25/16 16:06 Last Admin: 12/25/16 16:04 Dose: 166.7 mls/hr Physical Exam - Constitutional Appears: No Acute Distress - ENT Exam ENT Exam: Mucous Membranes Dry - Respiratory Exam Respiratory Exam: absent: Accessory Muscle Use, Respiratory Distress - Cardiovascular Exam Cardiovascular Exam: Tachycardia, REGULAR RHYTHM - GI/Abdominal Exam GI & Abdominal Exam: Soft. absent: Distended - Neurological Exam Neurological exam: Alert Results - Vital Signs Recent Vital Signs: Last Vital Signs Temp 97.5 F L 12/25/16 13:23 Pulse 80 12/25/16 13:23 Resp 18 12/25/16 13:23 BP 143/56 L 12/25/16 13:23 Pulse Ox 92 L 12/25/16 15:44 - Labs Result Diagrams: 12/25/16 13:53 12/25/16 13:53 Assessment & Plan - Assessment and Plan (Free Text) Assessment: 81F with acute renal failure, hypercalcemia and fluid overload Plan: OR for emergent permacath ICU admission further mgmt per primary team and nephrology d/w Dr Weston Washburn, PGY3
[2016-12-25] MEDS ORDERED: Lidocaine 1% Inj (20ml) ONE (16:09)
[2016-12-25] MEDS ORDERED: HEPARIN-NS 5,000 UNITS/500 ML 5,000 UNIT/500 ML BAG IV ONE (16:10)
[2016-12-25 16:15] LABS: RBC URINE 24 /hpf (0-3); URINE BILIRUBIN NEGATIVE (NEGATIVE); URINE BLOOD 2+ (NEGATIVE); URINE COLOR Yellow (YELLOW); URINE GLUCOSE (UA) NORMAL (Normal); URINE KETONE NEGATIVE (NEGATIVE); URINE LEUKOCYTE ESTERASE 1+ Leu/uL (Negative); URINE PROTEIN 2+ mg/dL (NEGATIVE); URINE UROBILINOGEN NORMAL mg/dL (0.2-1.0); WBC URINE 11 /hpf (0-5)
--- NOTE | 2016-12-25 16:21 | CT ---
PROCEDURE: CT Abdomen and Pelvis without intravenous contrast HISTORY: flank pain COMPARISON: Comparison is made to the previous study dated 09/30/2016 TECHNIQUE: Axial and reformatted coronal and sagittal CT images of the abdomen and pelvis were obtained without IV or oral contrast administration.. Contrast Dose: 0 Radiation dose: Total exam DLP = 1125.21 mGy-cm. This CT exam was performed using one or more of the following dose reduction techniques: Automated exposure control, adjustment of the mA and/or kV according to patient size, and/or use of iterative reconstruction technique. FINDINGS: LOWER THORAX: Airspace consolidation at the left lower lobe associated with small left pleural effusion may represent a pneumonia. LIVER: Unremarkable. No gross lesion or ductal dilatation. GALLBLADDER AND BILE DUCTS: Gallstones and calcifications seen at the gallbladder fossa. No evidence of cholecystitis or biliary obstruction PANCREAS: Unremarkable. No gross lesion or ductal dilatation. SPLEEN: Unremarkable. ADRENALS: Unremarkable. No mass. KIDNEYS AND URETERS: Again seen is high attenuation exophytic lesion at the midpole right kidney measures 1.4 centimeter. Also again seen are multiple parapelvic cysts. No evidence of nephrolithiasis or hydronephrosis. VASCULATURE: Unremarkable. No aortic aneurysm. BOWEL: Suboptimal assessment of the GI without oral contrast administration. No evidence of bowel obstruction. Mild constipation is noted. APPENDIX: No evidence of appendicitis. PERITONEUM: Unremarkable. No free fluid. No free air. LYMPH NODES: Unremarkable. No enlarged lymph nodes. BLADDER: Unremarkable. REPRODUCTIVE: Heterogeneous prominent uterus contains foci of calcification is again noted likely present calcified fibroids. No CT evidence of adnexal mass. BONES: Interval appearance of diffuse lytic bony lesions highly suggestive of osseous metastasis. There is large lytic bony lesion at the right transverse process of L2. OTHER FINDINGS: None. IMPRESSION: No evidence of nephrolithiasis or hydronephrosis. 1.5 centimeter exophytic high attenuation lesion at the mid to lower pole of the right kidney. The possibility of renal cell carcinoma should be excluded. The differential diagnosis includes exophytic hemorrhagic cyst. Diffuse lytic bony lesions highly suggestive of osseous metastasis, these lesions appear more conspicuous and larger compared to the previous exam. Further assessment is recommended. The differential diagnosis includes multiple myeloma. Airspace consolidation at the left lower lobe associated with small pleural effusion suspicious for pneumonia.
[2016-12-25] MEDS ORDERED: Piperacillin/Tazobact 2.25 GM in Sodium Chloride 100 ML IVPB SCH (16:30)
--- NOTE | 2016-12-25 16:39 | CP.PCM.CON ---
History of Present Illness - History of Present Illness History of Present Illness: CC: SOB since this morning HPI: Patient is a 81 year old female with PMHx of CHF, A-Fib, HTN, Anemia, DM, hypothyroidism, Gastritis, Hepatitis C (treated) presenting with SOB with associated left shoulder pain that started this morning. She also reports having right flank pain that has been present for 1 month. Patient is present with her brother who has provided the majority of the history. Patient denies any alleviating factors. She admits to nausea and vomiting which is chronic in nature. Emesis is non-bloody, non bilious and is the consistency of food. She admits to headaches, shakiness, and weakness which started today when she noticed that her "blood was low". She also reports coughing with sputum of "dark " color. She admits to "foamy urine" and dysuria that occurs occasionally but is present today. She admits to constipation which she attributes to her Ferrous sulfate medication, last BM was 3 days ago. She denies fevers, chest pain, palpitations, or hematuria. PMD: Dr. Winkler PMHx: CHF, A-Fib, HTN, Anemia, DM, hypothyroidism, Gastritis, Hepatitis C ( treated) PSH: Breast lipoma removal, EGD, Laparoscopic Enteroscopy in 2017 revealing gastritis and hiatal hernia but no bleeding Allergies: denies Social Hx: Former smoker- smoked 5 cigarettes per day for 5 years, quit 40 years ago. Denies alcohol and drugs. Lives with brother. Family Hx: Mother- Stroke in her 80s. Sister- colon cancer at 81 years old. Brother-pancreatic cancer at 85 years old. Medications: Ferrous Sulfate 325 mg daily, Levothyroxine 75 mcg PO daily, Budesonide 90 micrograms 1 puff Q12H, Amiodarone 200mg PO daily, Diltiazem ER 240mg PO daily, Glipizide 10mg PO daily, Anoro Ellipta 1 puff daily, Omeprazole , 20mg PO daily, Furosemide 40mg daily, Lidoderm path 5% daily, magnesium oxide 400 mg BID, Tramadol/Acetaminophen 32.5- 325 2 tabs Q6HR Assistant Laboratory Director: Dr. Lynch GI: Dr. Ferro Nephro: Dr. Bill Review of Systems - Constitutional Constitutional: As Per HPI, Headache, Weakness. absent: Fever - EENT Eyes: As Per HPI. absent: Blurred Vision, Change in Vision, Diplopia Ears: absent: Decreased Hearing, Ear Discharge, Ear Pain Nose/Mouth/Throat: absent: Epistaxis, Nasal Congestion, Nasal Discharge - Cardiovascular Cardiovascular: Dyspnea, Dyspnea on Exertion, Leg Edema. absent: Chest Pain, Chest Pain with Activity - Respiratory Respiratory: Cough, Dyspnea on Exertion - Gastrointestinal Gastrointestinal: Abdominal Pain, Constipation, Nausea, Vomiting - Genitourinary Genitourinary: Dysuria, Flank Pain. absent: Hematuria - Musculoskeletal Musculoskeletal: absent: Back Pain, Myalgias, Tingling - Integumentary Integumentary: absent: Bleeding Lesions, New Lesions, Rash - Neurological Neurological: Headaches. absent: Dizziness, Tingling Past Patient History - Past Medical History & Family History Past Medical History?: Yes - Past Social History Smoking Status: Former Smoker - CARDIAC Hx Cardia Arrhythmia: Yes Hx Congestive Heart Failure: Yes Hx Hypertension: Yes - PULMONARY Hx Respiratory Disorders: No - NEUROLOGICAL Hx Neurological Disorder: No - HEENT Hx HEENT Problems: Yes Hx Cataracts: Yes (bilateral) - RENAL Hx Chronic Kidney Disease: Yes Other/Comment: RENAL INSUFFICIENCY - ENDOCRINE/METABOLIC Hx Endocrine Disorders: Yes Hx Diabetes Mellitus Type 2: Yes Hx Hypothyroidism: Yes - HEMATOLOGICAL/ONCOLOGICAL Hx Anemia: Yes - INTEGUMENTARY Hx Dermatological Problems: No - MUSCULOSKELETAL/RHEUMATOLOGICAL Hx Arthritis: Yes - GASTROINTESTINAL Hx Gastrointestinal Disorders: Yes Hx Colostomy: Yes Hx Hemorrhoids: Yes - GENITOURINARY/GYNECOLOGICAL Hx Genitourinary Disorders: No - PSYCHIATRIC Hx Substance Use: No - SURGICAL HISTORY Hx Surgeries: No - ANESTHESIA Hx Anesthesia: No Hx Anesthesia Reactions: No Hx Malignant Hyperthermia: No Meds Allergies/Adverse Reactions: Allergies Allergy/AdvReac Type Severity Reaction Status Date / Time No Known Allergies Allergy Verified 12/01/16 07:55 - Medications Medications: Current Medications Ferrous Sulfate (Feosol) 325 mg PO DAILY [facility] Piperacillin Sod/Tazobactam Sod (Zosyn 2.25 Gm Iv Premix) 2.25 gm in 50 mls @ 100 mls/hr IVPB Q8H [facility] Levothyroxine Sodium (Synthroid) 75 mcg PO DAILY@0630 [facility] Physical Exam - Constitutional Appears: No Acute Distress - Head Exam Head Exam: ATRAUMATIC, NORMAL INSPECTION, NORMOCEPHALIC - Eye Exam Eye Exam: EOMI, Normal appearance, PERRL - ENT Exam ENT Exam: Mucous Membranes Moist - Neck Exam Neck exam: Positive for: Normal Inspection. Negative for: Thyromegaly - Respiratory Exam Respiratory Exam: Decreased Breath Sounds. absent: Accessory Muscle Use - Cardiovascular Exam Cardiovascular Exam: REGULAR RHYTHM, +S1, +S2. absent: JVD - GI/Abdominal Exam GI & Abdominal Exam: Hypoactive Bowel Sounds, Tenderness - Extremities Exam Extremities exam: Positive for: pedal edema, pedal pulses present - Neurological Exam Neurological exam: Alert, CN II-XII Intact, Oriented x3 - Psychiatric Exam Psychiatric exam: Normal Affect, Normal Mood - Skin Skin Exam: Dry, Intact, Normal Color, Warm Results - Vital Signs Recent Vital Signs: Last Vital Signs Temp 98.4 F 12/25/16 16:09 Pulse 82 12/25/16 16:09 Resp 24 12/25/16 16:09 BP 151/40 H 12/25/16 16:09 Pulse Ox 93 L 12/25/16 16:09 - Labs Result Diagrams: 12/25/16 13:53 12/25/16 13:53 Labs: Laboratory Results - last 24 hr 12/25/16 16:04 Urine Color Yellow Urine Clarity Hazy Urine pH 5.0 Ur Specific Mina 1.015 Urine Protein 2+ H Urine Glucose (UA) Normal Urine Ketones Negative Urine Blood 2+ H Urine Nitrate Negative Urine Bilirubin Negative Urine Urobilinogen Normal Ur Leukocyte Esterase 1+ H Urine WBC (Auto) 11 H Urine RBC (Auto) 24 H Assessment & Plan - Assessment and Plan (Free Text) Plan: 81 year old female with PMHx of CHF, A-Fib, HTN, Anemia, DM, hypothyroidism, Gastritis, Hepatitis C (treated) presenting with SOB, shoulder pain since this morning and Acute Renal Failure Cardio: CHF, A-Fib, HTN - Continue home meds: Amiodarone 200 mg daily, Cardizem 240 mg daily - ProBNP today: [id number] - 06/28/16 Echo showed EF of 83% with borderline concentric LVH. Mild-moderate mitral regurgitation - 12/01 EKG: normal, NSR Nephro: Acute Renal Failure - BUN/Cr elevated today: 90/7.7 - Nephrology Dr. Bill consulted - Surgery consulted and will place permacath with plan for HD today - 12/25 Urinanalysis: +leuk esterase, 2+ protein, + Wbc and + RBC - f/u urine culture - f/u SPEP, IPEP, free light chain lambda, free light chain kappa, 24 hr urine UPEP, urine IPEP ID: Elevated WBCs - Start Zosyn 2.25 gr IV Q8 hr - afebrile Heme: Anemia - Continue home meds Ferrous sulfate 325 mg daily - Hgb today 7.0, will give 1 unit pRBC - monitor CBC daily - Consult hematology Oncology, Dr. Juan Hairm: h/o asthma - continue home meds: Pulmicort Flexhaler 90 mcg INH RQ12hr - f/u sputum culture Endo: DM, hypothyroidism - Continue home meds: Glipizide 10 mg daily; Levothyroxine 75 mcg daily - daily Accuchecks GI: Gastritis, Hepatitis C (treated) - Continue home meds Omeprazole 20 mg daily - RUQ pain will f/u Amylase, lipase - 12/22 stool occult blood: negative Msk: generalized LE pain, h/o back pain - Continue home meds: Magnesium oxide 400 mg BID; Tramadol-Acetaminophen 32.5- 325 mg 2 tablets Q6hr - Lidoderm patch 5% daily prn Prophylaxis: DVT: SCD GI: Omeprazole 20 mg daily
--- NOTE | 2016-12-25 16:39 | CP.PCM.HP ---
<Sunny Bishop - Last Filed: 12/25/16 17:46> History of Present Illness - History of Present Illness History of Present Illness: CC: SOB since this morning HPI: Patient is a 81 year old female with PMHx of CHF, A-Fib, HTN, Anemia, DM, hypothyroidism, Gastritis, Hepatitis C (treated) presenting with SOB with associated left shoulder pain that started this morning. She also reports having right flank pain that has been present for 1 month. Patient is present with her brother who has provided the majority of the history. Patient denies any alleviating factors. She admits to nausea and vomiting which is chronic in nature. Emesis is non-bloody, non bilious and is the consistency of food. She admits to headaches, shakiness, and weakness which started today when she noticed that her "blood was low". She also reports coughing with sputum of "dark " color. She admits to "foamy urine" and dysuria that occurs occasionally but is present today. She admits to constipation which she attributes to her Ferrous sulfate medication, last BM was 3 days ago. She denies fevers, chest pain, palpitations, or hematuria. PMD: Dr. Winkler PMHx: CHF, A-Fib, HTN, Anemia, DM, hypothyroidism, Gastritis, Hepatitis C ( treated) PSH: Breast lipoma removal, EGD, Laparoscopic Enteroscopy in 2017 revealing gastritis and hiatal hernia but no bleeding Allergies: denies Social Hx: Former smoker- smoked 5 cigarettes per day for 5 years, quit 40 years ago. Denies alcohol and drugs. Lives with brother. Family Hx: Mother- Stroke in her 80s. Sister- colon cancer at 81 years old. Brother-pancreatic cancer at 85 years old. Medications: Ferrous Sulfate 325 mg daily, Levothyroxine 75 mcg PO daily, Budesonide 90 micrograms 1 puff Q12H, Amiodarone 200mg PO daily, Diltiazem ER 240mg PO daily, Glipizide 10mg PO daily, Anoro Ellipta 1 puff daily, Omeprazole , 20mg PO daily, Furosemide 40mg daily, Lidoderm path 5% daily, magnesium oxide 400 mg BID, Tramadol/Acetaminophen 32.5- 325 2 tabs Q6HR [employer] Crane Operator: Dr. Lynch GI: Dr. Ferro Nephro: Dr. Bill Present on Admission - Present on Admission Any Indicators Present on Admission: No History of DVT/PE: No History of Uncontrolled Diabetes: No Urinary Catheter: No Decubitus Ulcer Present: No Review of Systems - Constitutional Constitutional: As Per HPI, Headache, Weakness. absent: Fever - EENT Eyes: As Per HPI. absent: Blurred Vision, Change in Vision, Diplopia Ears: absent: Decreased Hearing, Ear Discharge, Ear Pain Nose/Mouth/Throat: absent: Epistaxis, Nasal Congestion, Nasal Discharge - Cardiovascular Cardiovascular: Dyspnea, Dyspnea on Exertion, Leg Edema. absent: Chest Pain, Chest Pain with Activity, Rapid Heart Rate - Respiratory Respiratory: Cough (+dark sputum), Dyspnea on Exertion - Gastrointestinal Gastrointestinal: Abdominal Pain (LUQ), Constipation, Nausea (Chronic in nature) , Vomiting (non bilious, non bloody. Food consistency) - Genitourinary Genitourinary: Dysuria, Flank Pain. absent: Hematuria - Musculoskeletal Musculoskeletal: absent: Back Pain, Myalgias, Tingling - Integumentary Integumentary: absent: Bleeding Lesions, New Lesions, Rash - Neurological Neurological: Headaches. absent: Dizziness, Tingling Past Patient History - Past Medical History & Family History Past Medical History?: Yes - Past Social History Smoking Status: Former Smoker - CARDIAC Hx Cardia Arrhythmia: Yes Hx Congestive Heart Failure: Yes Hx Hypertension: Yes - PULMONARY Hx Respiratory Disorders: No - NEUROLOGICAL Hx Neurological Disorder: No - HEENT Hx HEENT Problems: Yes Hx Cataracts: Yes (bilateral) - RENAL Hx Chronic Kidney Disease: Yes Other/Comment: RENAL INSUFFICIENCY - ENDOCRINE/METABOLIC Hx Endocrine Disorders: Yes Hx Diabetes Mellitus Type 2: Yes Hx Hypothyroidism: Yes - HEMATOLOGICAL/ONCOLOGICAL Hx Anemia: Yes - INTEGUMENTARY Hx Dermatological Problems: No - MUSCULOSKELETAL/RHEUMATOLOGICAL Hx Arthritis: Yes - GASTROINTESTINAL Hx Gastrointestinal Disorders: Yes Hx Colostomy: Yes Hx Hemorrhoids: Yes - GENITOURINARY/GYNECOLOGICAL Hx Genitourinary Disorders: No - PSYCHIATRIC Hx Substance Use: No - SURGICAL HISTORY Hx Surgeries: No - ANESTHESIA Hx Anesthesia: No Hx Anesthesia Reactions: No Hx Malignant Hyperthermia: No Meds Allergies/Adverse Reactions: Allergies Allergy/AdvReac Type Severity Reaction Status Date / Time No Known Allergies Allergy Verified 12/01/16 07:55 Physical Exam - Constitutional Appears: In Acute Distress (SOB) - Head Exam Head Exam: ATRAUMATIC, NORMAL INSPECTION, NORMOCEPHALIC - Eye Exam Eye Exam: EOMI, Normal appearance, PERRL - ENT Exam ENT Exam: Mucous Membranes Moist - Neck Exam Neck exam: Positive for: Normal Inspection. Negative for: Thyromegaly - Respiratory Exam Respiratory Exam: Decreased Breath Sounds. absent: Accessory Muscle Use - Cardiovascular Exam Cardiovascular Exam: REGULAR RHYTHM, +S1, +S2. absent: JVD - GI/Abdominal Exam GI & Abdominal Exam: Hypoactive Bowel Sounds, Tenderness (LUQ tenderness to palpation) - Extremities Exam Extremities exam: Positive for: pedal edema, pedal pulses present - Neurological Exam Neurological exam: Alert, CN II-XII Intact, Oriented x3 - Psychiatric Exam Psychiatric exam: Normal Affect, Normal Mood - Skin Skin Exam: Dry, Intact, Normal Color, Warm Results - Vital Signs Recent Vital Signs: Last Vital Signs Temp 98.4 F 12/25/16 16:09 Pulse 82 12/25/16 16:09 Resp 24 12/25/16 16:09 BP 151/40 H 12/25/16 16:09 Pulse Ox 93 L 12/25/16 16:09 - Labs Result Diagrams: 12/25/16 13:53 12/25/16 13:53 Labs: Laboratory Results - last 24 hr 12/25/16 16:04 Urine Color Yellow Urine Clarity Hazy Urine pH 5.0 Ur Specific [place] 1.015 Urine Protein 2+ H Urine Glucose (UA) Normal Urine Ketones Negative Urine Blood 2+ H Urine Nitrate Negative Urine Bilirubin Negative Urine Urobilinogen Normal Ur Leukocyte Esterase 1+ H Urine WBC (Auto) 11 H Urine RBC (Auto) 24 H Assessment & Plan (1) CHF exacerbation Assessment and Plan: - ProBNP today: 28300 - 06/28/16 Echo showed EF of 83% with borderline concentric LVH. Mild-moderate mitral regurgitation - 12/01 EKG: normal, NSR - con't home med furosimide 40mg po daily Status: Acute (2) Acute kidney injury superimposed on chronic kidney disease Assessment and Plan: - BUN/Cr elevated today: 90/7.7 - Nephrology Dr. Bill consulted - Surgery consulted and will place permacath with plan for HD today - 12/25 Urinanalysis: +leuk esterase, 2+ protein, + Wbc and + RBC - f/u urine culture - f/u SPEP, IPEP, free light chain lambda, free light chain kappa, 24 hr urine UPEP, urine IPEP Status: Acute (3) Anemia Assessment and Plan: - Continue home meds Ferrous sulfate 325 mg daily - Hgb today 7.0, will give 1 unit pRBC - monitor CBC daily - 12/22 stool occult blood: negative - Consult hematology Oncology, Dr. Martinez Status: Chronic (4) Atrial fibrillation with controlled ventricular response Assessment and Plan: - Continue home meds: Amiodarone 200 mg daily, Cardizem 240 mg daily Status: Acute (5) HTN (hypertension) Assessment and Plan: - con't home med furosemide 40mg po daily Status: Chronic (6) Leucocytosis Assessment and Plan: - Start Zosyn 2.25 gr IV Q8 hr - afebrile - bands 3 Status: Acute (7) History of asthma Assessment and Plan: - continue home meds: Pulmicort Flexhaler 90 mcg INH RQ12hr - f/u sputum culture Status: Acute (8) Gastritis Assessment and Plan: - Continue home meds Omeprazole 20 mg daily Status: Acute (9) Diabetes 1.5, managed as type 2 Assessment and Plan: - Continue home meds: Glipizide 10 mg daily - daily Accuchecks Status: Chronic (10) Hypothyroidism Status: Chronic (11) Hepatitis Assessment and Plan: - RUQ pain will f/u Amylase, lipase - hx of hepatits, previously treated - LFTs normal Status: Acute (12) History of back pain Assessment and Plan: - Continue home meds: Magnesium oxide 400 mg BID; Tramadol-Acetaminophen 32.5- 325 mg 2 tablets Q6hr - Lidoderm patch 5% daily prn Status: Acute (13) Lower extremity pain Assessment and Plan: - Continue home meds: Magnesium oxide 400 mg BID; Tramadol-Acetaminophen 32.5- 325 mg 2 tablets Q6hr - Lidoderm patch 5% daily prn Status: Acute (14) Prophylactic measure Assessment and Plan: DVT: SCD GI: Omeprazole 20 mg daily Status: Acute <Nika Junior V - Last Filed: 12/25/16 20:10> Results - Vital Signs Recent Vital Signs: Last Vital Signs Temp 98.2 F 12/25/16 18:30 Pulse 78 12/25/16 19:00 Resp 20 12/25/16 19:00 BP 139/51 L 12/25/16 19:00 Pulse Ox 92 L 12/25/16 19:04 - Labs Result Diagrams: 12/25/16 13:53 12/25/16 13:53 Labs: Laboratory Results - last 24 hr 12/25/16 12/25/16 16:04 16:20 Amylase 74 Lipase 58 Urine Color Yellow Urine Clarity Hazy Urine pH 5.0 Ur Specific [place] 1.015 Urine Protein 2+ H Urine Glucose (UA) Normal Urine Ketones Negative Urine Blood 2+ H Urine Nitrate Negative Urine Bilirubin Negative Urine Urobilinogen Normal Ur Leukocyte Esterase 1+ H Urine WBC (Auto) 11 H Urine RBC (Auto) 24 H Attending/Attestation - Attestation I have personally seen and examined this patient.: Yes I have fully participated in the care of the patient.: Yes I have reviewed all pertinent clinical information: Yes Notes (Text): Patient seen, examined, and case discussed with ICU. Patient seen in [facility] bed 10 in Emergency Room with patient's brother at bedside at approximately 4:00PM. Patient seen previously by [facility] for emergent dialysis catheter placement in light of Cr: 7.7, hypercalcemia. Patient and brother bedside report she has been having low back pain at spread to her sides and to her upper shoulders. Patient reports she saw her PMD last Sunday and was advised to spine xray and repeat blood work. Discussed with patient's PMD, Dr. Winkler, who reported patient was recently discharged from [facility], will attempt to get paperwork from [facility], wherein had extensive workup for acute on chronic kidney disease. He also reports patient has had workup of anemia, in 2017 completed endoscopy/colonoscopy with GI as well. Patient reports she is feeling bad, feels out of breath, and has had unintentional weight loss of 15lbs over the past month. Patient does not take her medications this morning because she felt awful. Discussed with patient's ER nurse, Bear, patient able to make urine in bed peterson. Discussed with PMD-->f/u workup from [facility] Discussed with heme-onc in light of abnormal CT findings-->workup for possible multiple myeloma will come and see the patient tomorrow Surgery resident seen patient prior to my arrival-->patient taken to the OR for dialysis placement Discussed with ICU-->patient to go to ICU following dialysis placement. Discussed with cardiology, who come see the patient. (1) Fluid Overload Assessment and Plan: * ProBNP today: 31335 * Contributing factors: acute on chronic kidney disease and hx of diastolic congestive heart failure * Vascular Surgery: Dr. Ontiveros-->notified by emergency room; for emergent dialysis access * Nephrology: Dr Bill on board-->acute on chronic kidney insuffiency, hypercalcemia; emergent dialysis * Chest Xray (12/25/16): prominent diffuse increased interstital lung markings throughout both lungs suggestive for edema and/or infiltrate * Will need repeat chest xray following dialysis to discern from edema vs infiltrate * Monitor intake output * Daily weights (2) Acute kidney injury superimposed on chronic kidney disease Assessment and Plan: * Nephrology Dr. Bill consulted-->help appreciated * Vascular Surgery: Dr. Ontiveros-->help appreciated * Surgery consulted and will place permacath with plan for HD today * Heme-Oncology: Dr Martinez-->help appreciated * Possible patient has light chain multiple myeloma * Recommended for SPEP, IPEP, free light chain lambda, free light chain kappa, 24 hr urine UPEP, urine IPEP, beta2 microglobulin, and LDH * BUN/Cr elevated today: 90/7.7 * 12/25 Urinanalysis: +leuk esterase, 2+ protein, + Wbc and + RBC * f/u urine culture * Ct Abdomen/Pelvis (12/25/16): No evidence of nephrolithiasis or hydronephrosis , 1,5 cm exophyitc high attentuation lesion at the mid to lower pole of right kidney. possibility of renal cell carcnioma should be excluded. 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 Airspace consolidation at left lobe associated with small pleural fussion suspicious for pneumonia * Will need to get records from [facility] to see workup in between hospitalizations Status: Acute (3) Possible Multiple Myeloma Assessment and Plan: * Criteria: anemia, renal insufficiency, hypercalcemia * Nephrology Dr. Bill consulted-->help appreciated * Vascular Surgery: Dr. Ontiveros-->help appreciated * Surgery consulted and will place permacath with plan for HD today * Heme-Oncology: Dr Martinez-->help appreciated * Possible patient has light chain multiple myeloma * Recommended for SPEP, IPEP, free light chain lambda, free light chain kappa, 24 hr urine UPEP, urine IPEP, beta2 microglobulin, and LDH * BUN/Cr elevated today: 90/7.7 * 12/25 Urinanalysis: +leuk esterase, 2+ protein, + Wbc and + RBC * f/u urine culture * Ct Abdomen/Pelvis (12/25/16): No evidence of nephrolithiasis or hydronephrosis , 1,5 cm exophyitc high attentuation lesion at the mid to lower pole of right kidney. possibility of renal cell carcnioma should be excluded. 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 Airspace consolidation at left lobe associated with small pleural fussion suspicious for pneumoni * Will need to get records from [facility] to see workup in between hospitalizations Status: Acute (4) Possible CHF exacerbation Assessment and Plan: * History of diastolic congestive heart failure * Cardiology (Dr. Little) on consult; covering for Dr. Lynch's patients * ProBNP today: 90863 * 06/28/16 Echo showed EF of 83% with borderline concentric LVH. Mild-moderate mitral regurgitation * 12/01 EKG: normal, NSR * con't home med furosimide 40mg po daily * monitor intake and output * Daily Weights Status: Acute (5) Anemia Assessment and Plan: * Heme-onc (Dr. Martinez) on board-->help appreciated * Discussed with PMD: Dr. Winkler-->patient has had workup including GI workup in 2017 in regards to anemia * Thought to be chronic secondary to kidney disease * Continue home meds Ferrous sulfate 325 mg daily * Hgb today 7.0, will give 1 unit pRBC * 12/22 stool occult blood: negative Status: Chronic (6) Atrial fibrillation Assessment and Plan: * Cardiology (Dr. Little) covering for Dr. Lynch's patients * Continue home meds: Amiodarone 200 mg daily, Cardizem 240 mg daily * Patient is not on anticoagulation secondary to anemia * CHADS: 4 (DM, Age, HTN, CHF) * HASBLED:2 (Age and Renal Disease) Status: Acute (7) HTN (hypertension) Assessment and Plan: * Monitor vital signs * Patient require emergent dialysis * Restart Amiodarone 200mg PO daily and Cardizem 240mg PO daily * con't home med furosemide 40mg po daily Status: Chronic (8) Leukocytosis Assessment and Plan: * In the ED, order for dose of Zosyn and Vancomycin * Difficult to discern if patient has pneumonia given she is also appears fluid overload * Ordered for Strep, legionella, and mycoplasma IgM * Patient recently at the hospital within 90 days-->consideration for possible hospital acquired pneumonia * Patient does not meet sepsis critera (04/19: leukocytosis) * Start Zosyn 2.25 gr IV Q8H * Discussed with ED nurse, blood and urine cultures were collected prior to OR Status: Acute (9) History of asthma Assessment and Plan: * continue home meds: Pulmicort Flexhaler 90 mcg INH RQ12hr * f/u sputum culture Status: Chronic (10) History of Gastritis Assessment and Plan: - Continue home meds Omeprazole 20 mg daily Status: Chronic (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, managed as type 2 Assessment and Plan: * Continue home meds: Glipizide 10 mg daily * daily Accuchecks * Order [id number] Status: Chronic (10) Hypothyroidism Status: Chronic * Order TSH in AM Status: Chronic (11) Hepatitis Assessment and Plan: * RUQ pain will f/u Amylase, lipase which are normal * LFTs are normal Status: Chronic (12) History of back pain Assessment and Plan: held Magnesium oxide 400 mg BID; Tramadol-Acetaminophen 32.5-325 mg 2 tablets Q6hr Lidoderm patch 5% daily prn Status: Acute (13) Lower extremity pain Assessment and Plan: Held Magnesium oxide 400 mg BID; Tramadol-Acetaminophen 32.5-325 mg 2 tablets Q6hr - Lidoderm patch 5% daily prn Status: Acute (14) Prophylactic measure Assessment and Plan: DVT: SCD GI: Omeprazole 20 mg daily Monitor intake and output Daily Weight Status: Acute
[2016-12-25] MEDS ORDERED: Sodium Chloride 0.9% 500 ML IV ONE (16:45)
[2016-12-25 17:33] LABS: AMYLASE 74 U/L (30-110)
--- NOTE | 2016-12-25 17:59 | PCM.SURG1 ---
Surgeon's Initial Post Op Note - Surgeon's Notes Surgeon: Dr. Fairbanks Sdc Teacher: angelina Alatorre PGY2 Type of Anesthesia: IV Sedation, Local Pre-Operative Diagnosis: Hypercalcemia needing HD Operative Findings: NA Post-Operative Diagnosis: Same Operation Performed: Tunneled HD catheter placement R IJ Specimen/Specimens Removed: NA Estimated Blood Loss: EBL {In ML}: 10 Blood Products Given: N/A Drains Used: No Drains Post-Op Condition: Good Date of Surgery/Procedure: 12/25/16 Time of Surgery/Procedure: 17:59
[2016-12-25] MEDS ORDERED: Sodium Chloride 0.9% 1,000 ML IV SCH (19:30)
--- NOTE | 2016-12-25 19:53 | RAD ---
Chest x-ray single frontal view History: PermCath placement. Comparison: 12/25/2016 Findings: Right central venous catheter with tip extending into the right atrium. No evidence of postprocedure pneumothorax. Prominent diffuse confluent increased opacities throughout both lungs. Scattered nodularity in both lungs. Small left pleural effusion. Cardiomegaly. Calcification at the aortic knob. Degenerative changes in the spine and shoulders. Impression: Right central venous catheter with tip extending into the right atrium. No evidence of postprocedure pneumothorax. Prominent diffuse confluent increased opacities throughout both lungs. Scattered nodularity in both lungs. Small left pleural effusion. Cardiomegaly. Calcification at the aortic knob. Degenerative changes in the spine and shoulders.
[2016-12-25 21:56] LABS: POTASSIUM 4.9 mmol/L (3.6-5.2)
[2016-12-25 21:57] LABS: BASO % 0.3 % (0.0-2.0); EOS # 0.1 K/uL (0.0-0.7); EOS % 0.6 % (0.0-4.0); HEMATOCRIT 18.1 % (34.0-47.0); LYMPH # 0.8 K/uL (1.0-4.3); LYMPH % 6.2 % (20.0-40.0); MEAN CORPUSCULAR HEMOGLOBIN 31.8 pg (27.0-31.0); MEAN CORPUSCULAR HGB CONC 32.8 g/dL (33.0-37.0); MEAN PLATELET VOLUME 8.1 fL (7.2-11.7); MONO # 0.5 K/uL (0.0-0.8); MONO % 3.7 % (0.0-10.0); NRBC % 0.3 % (0.0-2.0); PLATELET COUNT 258 K/uL (130-400); RED CELL DISTRIBUTION WIDTH 17.1 % (11.5-14.5)
[2016-12-25 21:58] LABS: BILIRUBIN,TOTAL 0.5 mg/dL (0.2-1.3)
[2016-12-25 21:59] LABS: ALB/GLOB RATIO 1.2 (1.0-2.1); TOTAL PROTEIN 6.1 g/dL (6.3-8.3)
[2016-12-25 22:00] LABS: CALCIUM 12.8 mg/dl (8.6-10.4)
[2016-12-25] MEDS: Sodium Chloride 0.9% 1,000 ML IV SCH (22:00)
[2016-12-25 22:28] LABS: EOSINOPHIL 1 % (0-4); NEUTROPHIL 94 % (50-75); TOTAL CELLS COUNTED 100
[2016-12-25] MEDS: Piperacill/Tazo 2.25gm in Dex 2.25 GM/50 ML BAG IVPB SCH (23:00)
--- NOTE | 2016-12-25 23:57 | CP.PCM.CON ---
History of Present Illness - History of Present Illness History of Present Illness: History of Present Illness - History of Present Illness History of Present Illness: CC: SOB since this morning HPI: Patient is a 81 year old female with PMHx of CHF, A-Fib, HTN, Anemia, DM, hypothyroidism, Gastritis, Hepatitis C (treated) presenting with SOB with associated left shoulder pain that started this morning. She also reports having right flank pain that has been present for 1 month. Patient is present with her brother who has provided the majority of the history. Patient denies any alleviating factors. She admits to nausea and vomiting which is chronic in nature. Emesis is non-bloody, non bilious and is the consistency of food. She admits to headaches, shakiness, and weakness which started today when she noticed that her "blood was low". She also reports coughing with sputum of "dark " color. She admits to "foamy urine" and dysuria that occurs occasionally but is present today. She admits to constipation which she attributes to her Ferrous sulfate medication, last BM was 3 days ago. She denies fevers, chest pain, palpitations, or hematuria. PMD: Dr. Winkler PMHx: CHF, A-Fib, HTN, Anemia, DM, hypothyroidism, Gastritis, Hepatitis C ( treated) PSH: Breast lipoma removal, EGD, Laparoscopic Enteroscopy in 2017 revealing gastritis and hiatal hernia but no bleeding Allergies: denies Social Hx: Former smoker- smoked 5 cigarettes per day for 5 years, quit 40 years ago. Denies alcohol and drugs. Lives with brother. Family Hx: Mother- Stroke in her 80s. Sister- colon cancer at 81 years old. Brother-pancreatic cancer at 85 years old. Medications: Ferrous Sulfate 325 mg daily, Levothyroxine 75 mcg PO daily, Budesonide 90 micrograms 1 puff Q12H, Amiodarone 200mg PO daily, Diltiazem ER 240mg PO daily, Glipizide 10mg PO daily, Anoro Ellipta 1 puff daily, Omeprazole , 20mg PO daily, Furosemide 40mg daily, Lidoderm path 5% daily, magnesium oxide 400 mg BID, Tramadol/Acetaminophen 32.5- 325 2 tabs Q6HR Climate Change Analyst: Dr. Lynch GI: Dr. Ferro Nephro: Dr. Bill Review of Systems - Constitutional Constitutional: As Per HPI, Headache, Weakness. absent: Fever - EENT Eyes: As Per HPI. absent: Blurred Vision, Change in Vision, Diplopia Ears: absent: Decreased Hearing, Ear Discharge, Ear Pain Nose/Mouth/Throat: absent: Epistaxis, Nasal Congestion, Nasal Discharge - Cardiovascular Cardiovascular: Dyspnea, Dyspnea on Exertion, Leg Edema. absent: Chest Pain, Chest Pain with Activity - Respiratory Respiratory: Cough, Dyspnea on Exertion - Gastrointestinal Gastrointestinal: Abdominal Pain, Constipation, Nausea, Vomiting - Genitourinary Genitourinary: Dysuria, Flank Pain. absent: Hematuria - Musculoskeletal Musculoskeletal: absent: Back Pain, Myalgias, Tingling - Integumentary Integumentary: absent: Bleeding Lesions, New Lesions, Rash - Neurological Neurological: Headaches. absent: Dizziness, Tingling Meds Allergies/Adverse Reactions: Allergies Allergy/AdvReac Type Severity Reaction Status Date / Time No Known Allergies Allergy Verified 12/01/16 07:55 - Medications Medications: Current Medications Ferrous Sulfate (Feosol) 325 mg PO DAILY [facility] Piperacillin Sod/Tazobactam Sod (Zosyn 2.25 Gm Iv Premix) 2.25 gm in 50 mls @ 100 mls/hr IVPB Q8H [facility] Levothyroxine Sodium (Synthroid) 75 mcg PO DAILY@0630 [facility] Physical Exam - Constitutional Appears: No Acute Distress - Head Exam Head Exam: ATRAUMATIC, NORMAL INSPECTION, NORMOCEPHALIC - Eye Exam Eye Exam: EOMI, Normal appearance, PERRL - ENT Exam ENT Exam: Mucous Membranes Moist - Neck Exam Neck exam: Positive for: Normal Inspection. Negative for: Thyromegaly - Respiratory Exam Respiratory Exam: Decreased Breath Sounds. absent: Accessory Muscle Use - Cardiovascular Exam Cardiovascular Exam: REGULAR RHYTHM, +S1, +S2. absent: JVD - GI/Abdominal Exam GI & Abdominal Exam: Hypoactive Bowel Sounds, Tenderness - Extremities Exam Extremities exam: Positive for: pedal edema, pedal pulses present - Neurological Exam Neurological exam: Alert, CN II-XII Intact, Oriented x3 - Psychiatric Exam Psychiatric exam: Normal Affect, Normal Mood - Skin Skin Exam: Dry, Intact, Normal Color, Warm Past Patient History - Past Medical History & Family History Past Medical History?: Yes - Past Social History Smoking Status: Former Smoker - CARDIAC Hx Cardia Arrhythmia: Yes Hx Congestive Heart Failure: Yes Hx Hypertension: Yes - PULMONARY Hx Respiratory Disorders: No - NEUROLOGICAL Hx Neurological Disorder: No - HEENT Hx HEENT Problems: Yes Hx Cataracts: Yes (bilateral) - RENAL Hx Chronic Kidney Disease: Yes Other/Comment: RENAL INSUFFICIENCY - ENDOCRINE/METABOLIC Hx Endocrine Disorders: Yes Hx Diabetes Mellitus Type 2: Yes Hx Hypothyroidism: Yes - HEMATOLOGICAL/ONCOLOGICAL Hx Anemia: Yes - INTEGUMENTARY Hx Dermatological Problems: No - MUSCULOSKELETAL/RHEUMATOLOGICAL Hx Arthritis: Yes - GASTROINTESTINAL Hx Gastrointestinal Disorders: Yes Hx Colostomy: Yes Hx Hemorrhoids: Yes - GENITOURINARY/GYNECOLOGICAL Hx Genitourinary Disorders: No - PSYCHIATRIC Hx Substance Use: No - SURGICAL HISTORY Hx Surgeries: No - ANESTHESIA Hx Anesthesia: No Hx Anesthesia Reactions: No Hx Malignant Hyperthermia: No Meds Allergies/Adverse Reactions: Allergies Allergy/AdvReac Type Severity Reaction Status Date / Time No Known Allergies Allergy Verified 12/01/16 07:55 - Medications Medications: Current Medications Ferrous Sulfate (Feosol) 325 mg PO DAILY [facility] Piperacillin Sod/Tazobactam Sod (Zosyn 2.25 Gm Iv Premix) 2.25 gm in 50 mls @ 100 mls/hr IVPB Q8H [facility] Doxycycline Hyclate 100 mg/ (Sodium Chloride) 100 mls @ 100 mls/hr IVPB Q12H [facility] Sodium Chloride (Sodium Chloride 0.9%) 1,000 mls @ 150 mls/hr IV .Q6H40M [facility] Levothyroxine Sodium (Synthroid) 75 mcg PO DAILY@0630 [facility] Results - Vital Signs Recent Vital Signs: Last Vital Signs Temp 98.2 F 12/25/16 18:30 Pulse 72 12/25/16 23:44 Resp 20 12/25/16 19:00 BP 139/51 L 12/25/16 19:00 Pulse Ox 92 L 12/25/16 19:04 - Labs Result Diagrams: 01/03/17 06:12 01/03/17 06:12 Labs: Laboratory Results - last 24 hr 12/25/16 12/25/16 12/25/16 16:04 16:20 21:26 WBC RBC Hgb Hct MCV MCH MCHC RDW Plt Count MPV Neut % (Auto) Lymph % (Auto) [place] % (Auto) Eos % (Auto) Baso % (Auto) Neut # Lymph # [place] # Eos # Baso # Neutrophils % (Manual) Lymphocytes % (Manual) Monocytes % (Manual) Eosinophils % (Manual) Platelet Estimate Polychromasia Hypochromasia (manual) Anisocytosis (manual) Sodium Potassium Chloride Carbon Dioxide Anion Gap BUN Creatinine Est GFR ( Amer) Est GFR (Non-Af Amer) POC Glucose (mg/dL) 147 H Random Glucose Calcium Total Bilirubin AST ALT Alkaline Phosphatase Lactate Dehydrogenase Total Protein Albumin Globulin Albumin/Globulin Ratio Amylase 74 Lipase 58 Urine Color Yellow Urine Clarity Hazy Urine pH 5.0 Ur Specific [place] 1.015 Urine Protein 2+ H Urine Glucose (UA) Normal Urine Ketones Negative Urine Blood 2+ H Urine Nitrate Negative Urine Bilirubin Negative Urine Urobilinogen Normal Ur Leukocyte Esterase 1+ H Urine WBC (Auto) 11 H Urine RBC (Auto) 24 H 12/25/16 12/25/16 12/25/16 21:39 21:39 21:39 WBC 13.0 H RBC 1.86 L Hgb 5.9 L* Hct 18.1 L MCV 97.0 MCH 31.8 H MCHC 32.8 L RDW 17.1 H Plt Count 258 MPV 8.1 Neut % (Auto) 89.2 H Lymph % (Auto) 6.2 L [place] % (Auto) 3.7 Eos % (Auto) 0.6 Baso % (Auto) 0.3 Neut # 11.6 H Lymph # 0.8 L [place] # 0.5 Eos # 0.1 Baso # 0.0 Neutrophils % (Manual) 94 H Lymphocytes % (Manual) 4 L Monocytes % (Manual) 1 Eosinophils % (Manual) 1 Platelet Estimate Normal Polychromasia Slight Hypochromasia (manual) Moderate Anisocytosis (manual) Slight Sodium 137 Potassium 4.9 Chloride 100 Carbon Dioxide 23 Anion Gap 19 BUN 95 H Creatinine 7.7 H* Est GFR ( Amer) 6 Est GFR (Non-Af Amer) 5 POC Glucose (mg/dL) Random Glucose 120 H Calcium 12.8 H Total Bilirubin 0.5 AST 19 ALT 27 Alkaline Phosphatase 54 Lactate Dehydrogenase 522 Total Protein 6.1 L Albumin 3.4 L Globulin 2.7 Albumin/Globulin Ratio 1.2 Amylase Lipase Urine Color Urine Clarity Urine pH Ur Specific [place] Urine Protein Urine Glucose (UA) Urine Ketones Urine Blood Urine Nitrate Urine Bilirubin Urine Urobilinogen Ur Leukocyte Esterase Urine WBC (Auto) Urine RBC (Auto) Assessment & Plan - Assessment and Plan (Free Text) Assessment: 81 year old female with PMHx of CHF, A-Fib, HTN, Anemia, DM, hypothyroidism, Gastritis, Hepatitis C (treated) presenting with SOB, shoulder pain since this morning and Acute Renal Failure Cardio: CHF, A-Fib, HTN - Continue home meds: Amiodarone 200 mg daily, Cardizem 240 mg daily - ProBNP today: 63658 - 06/28/16 Echo showed EF of 83% with borderline concentric LVH. Mild-moderate mitral regurgitation - 12/01 EKG: normal, NSR Nephro: Acute Renal Failure - BUN/Cr elevated today: 90/7.7 - Nephrology Dr. Bill consulted - Surgery consulted and will place permacath with plan for HD today - 12/25 Urinanalysis: +leuk esterase, 2+ protein, + Wbc and + RBC - f/u urine culture - f/u SPEP, IPEP, free light chain lambda, free light chain kappa, 24 hr urine UPEP, urine IPEP ID: Elevated [id number] - Start Zosyn 2.25 gr IV Q8 hr - afebrile Heme: Anemia - Continue home meds Ferrous sulfate 325 mg daily - Hgb today 7.0, will give 1 unit pRBC - monitor CBC daily - Consult hematology Oncology, Dr. Martinez Pulm: h/o asthma - continue home meds: Pulmicort Flexhaler 90 mcg INH RQ12hr - f/u sputum culture Endo: DM, hypothyroidism - Continue home meds: Glipizide 10 mg daily; Levothyroxine 75 mcg daily - daily Accuchecks GI: Gastritis, Hepatitis C (treated) - Continue home meds Omeprazole 20 mg daily - RUQ pain will f/u Amylase, lipase - 12/22 stool occult blood: negative Msk: generalized LE pain, h/o back pain - Continue home meds: Magnesium oxide 400 mg BID; Tramadol-Acetaminophen 32.5- 325 mg 2 tablets Q6hr - Lidoderm patch 5% daily prn Prophylaxis: DVT: SCD GI: Omeprazole 20 mg daily
--- NOTE | 2016-12-26 01:19 | OP ---
PROCEDURE DATE: 12/25/2016 PREOPERATIVE DIAGNOSIS: Renal failure. POSTOPERATIVE DIAGNOSIS: Renal failure. PROCEDURE: Placement of right jugular Perm-A-Cath with micropuncture technique and ultrasound guidance. SURGEON: Murtaza Ontiveros Jr., MD [place] SE[place] DIVER: Dr. Fontana. ANESTHESIA ADMINISTERED BY: Dr. Moon. INDICATIONS: A 81-year-old woman admitted with renal insufficiency now requires urgent dialysis. OPERATIVE FINDINGS: Catheter was inserted uneventfully via the jugular vein. DESCRIPTION OF PROCEDURE: Using ultrasound guidance under micropuncture technique right jugular vein was punctured. Under fluoroscopic control, guidewire was advanced centrally. A sheath dilator placed over this and exchanged for an 0.35 wire. After this had been done the catheter was positioned in the appropriate location, flushed with heparinized saline on the chest wall. Blood loss in the procedure was approximately 20 mL. The operation is carried out is Perm-A-Cath via right jugular vein with C-arm fluoroscopy and ultrasound-guided puncture. Ultrasound imaging of the neck showed the vein was approximately 13 mm in diameter with normal compressibility and no evidence of intraluminal thrombosis. Murtaza Ontiveros Jr., MD
[2016-12-26] MEDS: Piperacill/Tazo 2.25gm in Dex 2.25 GM/50 ML BAG IVPB SCH ×3 (06:00→22:38)
[2016-12-26] MEDS: Levothyroxine 75 MCG TAB PO SCH (07:08)
[2016-12-26] MEDS: Sodium Chloride 0.9% 1,000 ML IV SCH ×2 (07:11→12:18)
[2016-12-26 08:09] LABS: WHITE BLOOD COUNT 13.4 K/uL (4.8-10.8)
[2016-12-26 08:10] LABS: BASO # 0.1 K/uL (0.0-0.2); BASO % 0.5 % (0.0-2.0); EOS # 0.1 K/uL (0.0-0.7); EOS % 0.9 % (0.0-4.0); HEMATOCRIT 21.7 % (34.0-47.0); LYMPH # 1.1 K/uL (1.0-4.3); LYMPH % 8.5 % (20.0-40.0); MEAN CELL VOLUME 97.7 fL (81.0-99.0); MEAN CORPUSCULAR HEMOGLOBIN 32.6 pg (27.0-31.0); MEAN CORPUSCULAR HGB CONC 33.4 g/dL (33.0-37.0); MEAN PLATELET VOLUME 7.9 fL (7.2-11.7); MONO # 0.6 K/uL (0.0-0.8); MONO % 4.5 % (0.0-10.0); NRBC % 0.1 % (0.0-2.0); PLATELET COUNT 256 K/uL (130-400); RED CELL DISTRIBUTION WIDTH 16.7 % (11.5-14.5)
[2016-12-26 08:17] LABS: INR 1.2
[2016-12-26 08:19] LABS: POTASSIUM 5.3 mmol/L (3.6-5.2)
[2016-12-26 08:21] LABS: ALB/GLOB RATIO 1.2 (1.0-2.1); BILIRUBIN,TOTAL 0.6 mg/dL (0.2-1.3); TOTAL PROTEIN 6.4 g/dL (6.3-8.3)
[2016-12-26 08:22] LABS: CALCIUM 12.8 mg/dl (8.6-10.4); MAGNESIUM 2.7 mg/dL (1.6-2.3); PHOSPHOROUS 8.2 mg/dL (2.5-4.5)
--- NOTE | 2016-12-26 08:48 | CP.CCUPN ---
<Sunny Bishop - Last Filed: 12/26/16 12:55> CCU Subjective - Physician Review Subjective (Free Text): Patient seen and examined at bedside. Patient breathing comfortably on nasal cannula with 100% sat. Patient alert, AAOx3, able to follow commands. Patient currently denies any pain or discomfort. Denies chest pain, abdominal pain, fever, palpitations, nausea, vomiting. 12/26/16 08:45 CCU Objective - Vital Signs / Intake & Output Vital Signs (Last 4 hours): Vital Signs Pulse Resp BP Pulse Ox 12/26/16 06:50 76 15 97 12/26/16 06:48 75 19 139/62 97 12/26/16 06:40 76 19 96 12/26/16 06:33 75 18 137/60 98 12/26/16 06:30 76 19 99 12/26/16 06:20 77 16 95 12/26/16 06:19 78 19 143/58 L 95 12/26/16 06:10 79 19 88 L 12/26/16 06:03 78 127/57 L 95 12/26/16 06:00 73 14 98 12/26/16 05:50 69 12 98 12/26/16 05:48 70 12 115/47 L 98 12/26/16 05:40 70 12 98 12/26/16 05:33 69 13 111/45 L 98 12/26/16 05:30 70 12 98 12/26/16 05:20 71 11 L 99 12/26/16 05:18 71 13 123/51 L 99 12/26/16 05:14 69 12/26/16 05:10 69 11 L 98 12/26/16 05:03 70 14 113/48 L 98 12/26/16 05:00 68 12 98 12/26/16 04:50 69 12 98 12/26/16 04:48 69 12 118/44 L 98 Intake and Output (Last 8hrs): Intake & Output 12/25/16 12/26/16 12/26/16 22:59 06:59 14:59 Intake Total 400 1715 Output Total 335 640 Balance 65 1075 Weight 194 lb 0.108 oz Intake: Intake, IV Amount 400 1150 Right Wrist 400 1150 Oral 0 240 Blood Product 325 Red Blood Cells Cpd As1 325 Lr Unit [id number] Output: Urine 335 640 Urethral (Morgan) 335 640 Other: Voiding Method Indwelling Catheter - Physical Exam Head: Positive for: Atraumatic, Normocephalic Pupils: Positive for: PERRL Extroacular Muscles: Positive for: EOMI Mouth: Positive for: Moist Mucous Membranes Respiratory/Chest: Positive for: Clear to Auscultation Cardiovascular: Positive for: Regular Rate and Rhythm, Normal S1, S2 Abdomen: Positive for: Normal Bowel Sounds. Negative for: Tenderness, Distention Upper Extremity: Negative for: Edema Lower Extremity: Negative for: Edema Neurological: Positive for: CN II-XII Intact, Speech Normal Psychiatric: Positive for: Alert, Oriented x 3, Normal Insight - Medications Active Medications: Active Medications Generic Name Dose Route Start Last Admin Trade Name Freq PRN Reason Stop Dose Admin Ferrous Sulfate 325 mg 12/26/16 10:00 Feosol PO DAILY MARIBETH Piperacillin Sod/Tazobactam Sod 2.25 gm in 50 mls @ 100 mls/hr 12/25/16 23:00 12/26/16 06:00 Zosyn 2.25 Gm Iv Premix IVPB 100 mls/hr Q8H MARIBETH Administration Doxycycline Hyclate 100 mg/ 100 mls @ 100 mls/hr 12/25/16 21:00 12/25/16 22: 00 Sodium Chloride IVPB 100 mls/hr Q12H MARIBETH Administration Sodium Chloride 1,000 mls @ 150 mls/hr 12/25/16 20:51 12/26/16 07:11 Sodium Chloride 0.9% IV Not Given .[id number] MARIBETH Levothyroxine Sodium 75 mcg 12/26/16 06:30 12/26/16 07:08 Synthroid PO 75 mcg DAILY@0630 MARIBETH Administration - Patient Studies Lab Studies: Lab Studies 12/26/16 12/26/16 12/26/16 Range/Units 08:05 08:05 08:05 WBC 13.4 H (4.8-10.8) K/uL RBC 2.22 L (3.80-5.20) Mil/uL Hgb 7.2 L (11.0-16.0) g/dL Hct 21.7 L (34.0-47.0) % MCV 97.7 (81.0-99.0) fL MCH 32.6 H (27.0-31.0) pg MCHC 33.4 (33.0-37.0) g/dL RDW 16.7 H (11.5-14.5) % Plt Count 256 (130-400) K/uL MPV 7.9 (7.2-11.7) fL Neut % (Auto) 85.6 H (50.0-75.0) % Lymph % (Auto) 8.5 L (20.0-40.0) % Mckenzie % (Auto) 4.5 (0.0-10.0) % Eos % (Auto) 0.9 (0.0-4.0) % Baso % (Auto) 0.5 (0.0-2.0) % Neut # 11.4 H (1.8-7.0) K/uL Lymph # 1.1 (1.0-4.3) K/uL Mckenzie # 0.6 (0.0-0.8) K/uL Eos # 0.1 (0.0-0.7) K/uL Baso # 0.1 (0.0-0.2) K/uL Neutrophils % (Manual) (50-75) % Lymphocytes % (Manual) (20-40) % Monocytes % (Manual) (0-10) % Eosinophils % (Manual) (0-4) % Platelet Estimate (NORMAL) Polychromasia Hypochromasia (manual) Anisocytosis (manual) PT 13.1 H (9.7-12.2) SECONDS INR 1.2 APTT 39 H (21-34) SECONDS Sodium 139 (132-148) mmol/L Potassium 5.3 H (3.6-5.2) mmol/L Chloride 102 (98-107) mmol/L Carbon Dioxide 25 (22-30) mmol/L Anion Gap 17 (10-20) BUN 93 H (7-17) mg/dL Creatinine 7.8 H* (0.7-1.2) MG/DL Est GFR ( Amer) 6 Est GFR (Non-Af Amer) 5 POC Glucose (mg/dL) (65-110) mg/dL Random Glucose 119 H (65-105) mg/dL Calcium 12.8 H (8.6-10.4) mg/dl Phosphorus 8.2 H (2.5-4.5) mg/dL Magnesium 2.7 H (1.6-2.3) mg/dL Total Bilirubin 0.6 (0.2-1.3) mg/dL AST 18 (14-36) U/L ALT 23 (9-52) U/L Alkaline Phosphatase 56 (38-126) U/L Lactate Dehydrogenase (313-618) U/L Total Protein 6.4 (6.3-8.3) g/dL Albumin 3.5 (3.5-5.0) g/dL Globulin 2.9 (2.2-3.9) gm/dL Albumin/Globulin Ratio 1.2 (1.0-2.1) Amylase (30-110) U/L Lipase (23-300) U/L Urine Color (YELLOW) Urine Clarity (Clear) Urine pH (5.0-8.0) Ur Specific [place] (1.003-1.030) Urine Protein (NEGATIVE) mg/dL Urine Glucose (UA) (Normal) mg/dL Urine Ketones (NEGATIVE) mg/dL Urine Blood (NEGATIVE) Urine Nitrate (NEGATIVE) Urine Bilirubin (NEGATIVE) Urine Urobilinogen (0.2-1.0) mg/dL Ur Leukocyte Esterase (Negative) Roman/uL Urine WBC (Auto) (0-5) /hpf Urine RBC (Auto) (0-3) /hpf 12/26/16 12/25/16 12/25/16 Range/Units 07:34 21:39 21:39 WBC 13.0 H (4.8-10.8) K/uL RBC 1.86 L (3.80-5.20) Mil/uL Hgb 5.9 L* (11.0-16.0) g/dL Hct 18.1 L (34.0-47.0) % MCV 97.0 (81.0-99.0) fL MCH 31.8 H (27.0-31.0) pg MCHC 32.8 L (33.0-37.0) g/dL RDW 17.1 H (11.5-14.5) % Plt Count 258 (130-400) K/uL MPV 8.1 (7.2-11.7) fL Neut % (Auto) 89.2 H (50.0-75.0) % Lymph % (Auto) 6.2 L (20.0-40.0) % Mckenzie % (Auto) 3.7 (0.0-10.0) % Eos % (Auto) 0.6 (0.0-4.0) % Baso % (Auto) 0.3 (0.0-2.0) % Neut # 11.6 H (1.8-7.0) K/uL Lymph # 0.8 L (1.0-4.3) K/uL Mckenzie # 0.5 (0.0-0.8) K/uL Eos # 0.1 (0.0-0.7) K/uL Baso # 0.0 (0.0-0.2) K/uL Neutrophils % (Manual) 94 H (50-75) % Lymphocytes % (Manual) 4 L (20-40) % Monocytes % (Manual) 1 (0-10) % Eosinophils % (Manual) 1 (0-4) % Platelet Estimate Normal (NORMAL) Polychromasia Slight Hypochromasia (manual) Moderate Anisocytosis (manual) Slight PT (9.7-12.2) SECONDS INR APTT (21-34) SECONDS Sodium 137 (132-148) mmol/L Potassium 4.9 (3.6-5.2) mmol/L Chloride 100 (98-107) mmol/L Carbon Dioxide 23 (22-30) mmol/L Anion Gap 19 (10-20) BUN 95 H (7-17) mg/dL Creatinine 7.7 H* (0.7-1.2) MG/DL Est GFR ( Amer) 6 Est GFR (Non-Af Amer) 5 POC Glucose (mg/dL) 155 H (65-110) mg/dL Random Glucose 120 H (65-105) mg/dL Calcium 12.8 H (8.6-10.4) mg/dl Phosphorus (2.5-4.5) mg/dL Magnesium (1.6-2.3) mg/dL Total Bilirubin 0.5 (0.2-1.3) mg/dL AST 19 (14-36) U/L ALT 27 (9-52) U/L Alkaline Phosphatase 54 (38-126) U/L Lactate Dehydrogenase (313-618) U/L Total Protein 6.1 L (6.3-8.3) g/dL Albumin 3.4 L (3.5-5.0) g/dL Globulin 2.7 (2.2-3.9) gm/dL Albumin/Globulin Ratio 1.2 (1.0-2.1) Amylase (30-110) U/L Lipase (23-300) U/L Urine Color (YELLOW) Urine Clarity (Clear) Urine pH (5.0-8.0) Ur Specific [place] (1.003-1.030) Urine Protein (NEGATIVE) mg/dL Urine Glucose (UA) (Normal) mg/dL Urine Ketones (NEGATIVE) mg/dL Urine Blood (NEGATIVE) Urine Nitrate (NEGATIVE) Urine Bilirubin (NEGATIVE) Urine Urobilinogen (0.2-1.0) mg/dL Ur Leukocyte Esterase (Negative) Roman/uL Urine WBC (Auto) (0-5) /hpf Urine RBC (Auto) (0-3) /hpf 12/25/16 12/25/16 12/25/16 Range/Units 21:39 21:26 16:20 WBC (4.8-10.8) K/uL RBC (3.80-5.20) Mil/uL Hgb (11.0-16.0) g/dL Hct (34.0-47.0) % MCV (81.0-99.0) fL MCH (27.0-31.0) pg MCHC (33.0-37.0) g/dL RDW (11.5-14.5) % Plt Count (130-400) K/uL MPV (7.2-11.7) fL Neut % (Auto) (50.0-75.0) % Lymph % (Auto) (20.0-40.0) % Mckenzie % (Auto) (0.0-10.0) % Eos % (Auto) (0.0-4.0) % Baso % (Auto) (0.0-2.0) % Neut # (1.8-7.0) K/uL Lymph # (1.0-4.3) K/uL Mckenzie # (0.0-0.8) K/uL Eos # (0.0-0.7) K/uL Baso # (0.0-0.2) K/uL Neutrophils % (Manual) (50-75) % Lymphocytes % (Manual) (20-40) % Monocytes % (Manual) (0-10) % Eosinophils % (Manual) (0-4) % Platelet Estimate (NORMAL) Polychromasia Hypochromasia (manual) Anisocytosis (manual) PT (9.7-12.2) SECONDS INR APTT (21-34) SECONDS Sodium (132-148) mmol/L Potassium (3.6-5.2) mmol/L Chloride (98-107) mmol/L Carbon Dioxide (22-30) mmol/L Anion Gap (10-20) BUN (7-17) mg/dL Creatinine (0.7-1.2) MG/DL Est GFR ( Amer) Est GFR (Non-Af Amer) POC Glucose (mg/dL) 147 H (65-110) mg/dL Random Glucose (65-105) mg/dL Calcium (8.6-10.4) mg/dl Phosphorus (2.5-4.5) mg/dL Magnesium (1.6-2.3) mg/dL Total Bilirubin (0.2-1.3) mg/dL AST (14-36) U/L ALT (9-52) U/L Alkaline Phosphatase (38-126) U/L Lactate Dehydrogenase 522 (313-618) U/L Total Protein (6.3-8.3) g/dL Albumin (3.5-5.0) g/dL Globulin (2.2-3.9) gm/dL Albumin/Globulin Ratio (1.0-2.1) Amylase 74 (30-110) U/L Lipase 58 (23-300) U/L Urine Color (YELLOW) Urine Clarity (Clear) Urine pH (5.0-8.0) Ur Specific [place] (1.003-1.030) Urine Protein (NEGATIVE) mg/dL Urine Glucose (UA) (Normal) mg/dL Urine Ketones (NEGATIVE) mg/dL Urine Blood (NEGATIVE) Urine Nitrate (NEGATIVE) Urine Bilirubin (NEGATIVE) Urine Urobilinogen (0.2-1.0) mg/dL Ur Leukocyte Esterase (Negative) Roman/uL Urine WBC (Auto) (0-5) /hpf Urine RBC (Auto) (0-3) /hpf 12/25/16 Range/Units 16:04 WBC (4.8-10.8) K/uL RBC (3.80-5.20) Mil/uL Hgb (11.0-16.0) g/dL Hct (34.0-47.0) % MCV (81.0-99.0) fL MCH (27.0-31.0) pg MCHC (33.0-37.0) g/dL RDW (11.5-14.5) % Plt Count (130-400) K/uL MPV (7.2-11.7) fL Neut % (Auto) (50.0-75.0) % Lymph % (Auto) (20.0-40.0) % Mckenzie % (Auto) (0.0-10.0) % Eos % (Auto) (0.0-4.0) % Baso % (Auto) (0.0-2.0) % Neut # (1.8-7.0) K/uL Lymph # (1.0-4.3) K/uL Mckenzie # (0.0-0.8) K/uL Eos # (0.0-0.7) K/uL Baso # (0.0-0.2) K/uL Neutrophils % (Manual) (50-75) % Lymphocytes % (Manual) (20-40) % Monocytes % (Manual) (0-10) % Eosinophils % (Manual) (0-4) % Platelet Estimate (NORMAL) Polychromasia Hypochromasia (manual) Anisocytosis (manual) PT (9.7-12.2) SECONDS INR APTT (21-34) SECONDS Sodium (132-148) mmol/L Potassium (3.6-5.2) mmol/L Chloride (98-107) mmol/L Carbon Dioxide (22-30) mmol/L Anion Gap (10-20) BUN (7-17) mg/dL Creatinine (0.7-1.2) MG/DL Est GFR ( Amer) Est GFR (Non-Af Amer) POC Glucose (mg/dL) (65-110) mg/dL Random Glucose (65-105) mg/dL Calcium (8.6-10.4) mg/dl Phosphorus (2.5-4.5) mg/dL Magnesium (1.6-2.3) mg/dL Total Bilirubin (0.2-1.3) mg/dL AST (14-36) U/L ALT (9-52) U/L Alkaline Phosphatase (38-126) U/L Lactate Dehydrogenase (313-618) U/L Total Protein (6.3-8.3) g/dL Albumin (3.5-5.0) g/dL Globulin (2.2-3.9) gm/dL Albumin/Globulin Ratio (1.0-2.1) Amylase (30-110) U/L Lipase (23-300) U/L Urine Color Yellow (YELLOW) Urine Clarity Hazy (Clear) Urine pH 5.0 (5.0-8.0) Ur Specific [place] 1.015 (1.003-1.030) Urine Protein 2+ H (NEGATIVE) mg/dL Urine Glucose (UA) Normal (Normal) mg/dL Urine Ketones Negative (NEGATIVE) mg/dL Urine Blood 2+ H (NEGATIVE) Urine Nitrate Negative (NEGATIVE) Urine Bilirubin Negative (NEGATIVE) Urine Urobilinogen Normal (0.2-1.0) mg/dL Ur Leukocyte Esterase 1+ H (Negative) Roman/uL Urine WBC (Auto) 11 H (0-5) /hpf Urine RBC (Auto) 24 H (0-3) /hpf Laboratory Results - last 24 hr 12/25/16 12/25/16 12/25/16 16:04 16:20 21:26 WBC RBC Hgb Hct MCV MCH MCHC RDW Plt Count MPV Neut % (Auto) Lymph % (Auto) Mckenzie % (Auto) Eos % (Auto) Baso % (Auto) Neut # Lymph # Mckenzie # Eos # Baso # Neutrophils % (Manual) Lymphocytes % (Manual) Monocytes % (Manual) Eosinophils % (Manual) Platelet Estimate Polychromasia Hypochromasia (manual) Anisocytosis (manual) PT INR APTT Sodium Potassium Chloride Carbon Dioxide Anion Gap BUN Creatinine Est GFR ( Amer) Est GFR (Non-Af Amer) POC Glucose (mg/dL) 147 H Random Glucose Calcium Phosphorus Magnesium Total Bilirubin AST ALT Alkaline Phosphatase Lactate Dehydrogenase Total Protein Albumin Globulin Albumin/Globulin Ratio Amylase 74 Lipase 58 Urine Color Yellow Urine Clarity Hazy Urine pH 5.0 Ur Specific [place] 1.015 Urine Protein 2+ H Urine Glucose (UA) Normal Urine Ketones Negative Urine Blood 2+ H Urine Nitrate Negative Urine Bilirubin Negative Urine Urobilinogen Normal Ur Leukocyte Esterase 1+ H Urine WBC (Auto) 11 H Urine RBC (Auto) 24 H 12/25/16 12/25/16 12/25/16 21:39 21:39 21:39 WBC 13.0 H RBC 1.86 L Hgb 5.9 L* Hct 18.1 L MCV 97.0 MCH 31.8 H MCHC 32.8 L RDW 17.1 H Plt Count 258 MPV 8.1 Neut % (Auto) 89.2 H Lymph % (Auto) 6.2 L Mckenzie % (Auto) 3.7 Eos % (Auto) 0.6 Baso % (Auto) 0.3 Neut # 11.6 H Lymph # 0.8 L Mckenzie # 0.5 Eos # 0.1 Baso # 0.0 Neutrophils % (Manual) 94 H Lymphocytes % (Manual) 4 L Monocytes % (Manual) 1 Eosinophils % (Manual) 1 Platelet Estimate Normal Polychromasia Slight Hypochromasia (manual) Moderate Anisocytosis (manual) Slight PT INR APTT Sodium 137 Potassium 4.9 Chloride 100 Carbon Dioxide 23 Anion Gap 19 BUN 95 H Creatinine 7.7 H* Est GFR ( Amer) 6 Est GFR (Non-Af Amer) 5 POC Glucose (mg/dL) Random Glucose 120 H Calcium 12.8 H Phosphorus Magnesium Total Bilirubin 0.5 AST 19 ALT 27 Alkaline Phosphatase 54 Lactate Dehydrogenase 522 Total Protein 6.1 L Albumin 3.4 L Globulin 2.7 Albumin/Globulin Ratio 1.2 Amylase Lipase Urine Color Urine Clarity Urine pH Ur Specific [place] Urine Protein Urine Glucose (UA) Urine Ketones Urine Blood Urine Nitrate Urine Bilirubin Urine Urobilinogen Ur Leukocyte Esterase Urine WBC (Auto) Urine RBC (Auto) 12/26/16 12/26/16 12/26/16 07:34 08:05 08:05 WBC 13.4 H RBC 2.22 L Hgb 7.2 L Hct 21.7 L MCV 97.7 MCH 32.6 H MCHC 33.4 RDW 16.7 H Plt Count 256 MPV 7.9 Neut % (Auto) 85.6 H Lymph % (Auto) 8.5 L Mckenzie % (Auto) 4.5 Eos % (Auto) 0.9 Baso % (Auto) 0.5 Neut # 11.4 H Lymph # 1.1 Mckenzie # 0.6 Eos # 0.1 Baso # 0.1 Neutrophils % (Manual) Lymphocytes % (Manual) Monocytes % (Manual) Eosinophils % (Manual) Platelet Estimate Polychromasia Hypochromasia (manual) Anisocytosis (manual) PT INR APTT Sodium 139 Potassium 5.3 H Chloride 102 Carbon Dioxide 25 Anion Gap 17 BUN 93 H Creatinine 7.8 H* Est GFR ( Amer) 6 Est GFR (Non-Af Amer) 5 POC Glucose (mg/dL) 155 H Random Glucose 119 H Calcium 12.8 H Phosphorus 8.2 H Magnesium 2.7 H Total Bilirubin 0.6 AST 18 ALT 23 Alkaline Phosphatase 56 Lactate Dehydrogenase Total Protein 6.4 Albumin 3.5 Globulin 2.9 Albumin/Globulin Ratio 1.2 Amylase Lipase Urine Color Urine Clarity Urine pH Ur Specific [place] Urine Protein Urine Glucose (UA) Urine Ketones Urine Blood Urine Nitrate Urine Bilirubin Urine Urobilinogen Ur Leukocyte Esterase Urine WBC (Auto) Urine RBC (Auto) 12/26/16 08:05 WBC RBC Hgb Hct MCV MCH MCHC RDW Plt Count MPV Neut % (Auto) Lymph % (Auto) Mckenzie % (Auto) Eos % (Auto) Baso % (Auto) Neut # Lymph # Mckenzie # Eos # Baso # Neutrophils % (Manual) Lymphocytes % (Manual) Monocytes % (Manual) Eosinophils % (Manual) Platelet Estimate Polychromasia Hypochromasia (manual) Anisocytosis (manual) PT 13.1 H INR 1.2 APTT 39 H Sodium Potassium Chloride Carbon Dioxide Anion Gap BUN Creatinine Est GFR ( Amer) Est GFR (Non-Af Amer) POC Glucose (mg/dL) Random Glucose Calcium Phosphorus Magnesium Total Bilirubin AST ALT Alkaline Phosphatase Lactate Dehydrogenase Total Protein Albumin Globulin Albumin/Globulin Ratio Amylase Lipase Urine Color Urine Clarity Urine pH Ur Specific [place] Urine Protein Urine Glucose (UA) Urine Ketones Urine Blood Urine Nitrate Urine Bilirubin Urine Urobilinogen Ur Leukocyte Esterase Urine WBC (Auto) Urine RBC (Auto) Review of Systems - Constitutional Constitutional: absent: Fever, Chills, Sweats - Cardiovascular Cardiovascular: UNREMARKABLE - Respiratory Respiratory: UNREMARKABLE - Gastrointestinal Gastrointestinal: UNREMARKABLE - Genitourinary Genitourinary: UNREMARKABLE - Neurological Neurological: UNREMARKABLE Critical Care Progress Note - Nutrition Nutrition: Nutrition Category Date Time Status Renal Diet [DIET] Diets 12/25/16 Dinner Active Assessment/Plan (1) CHF exacerbation Current Visit: No Status: Acute (2) Acute kidney injury superimposed on chronic kidney disease Current Visit: No Status: Acute (3) Anemia Current Visit: No Status: Chronic (4) Atrial fibrillation with controlled ventricular response Current Visit: No Status: Acute (5) HTN (hypertension) Current Visit: No Status: Chronic (6) Leucocytosis Current Visit: No Status: Acute (7) History of asthma Current Visit: Yes Status: Acute (8) Gastritis Current Visit: No Status: Acute (9) Diabetes 1.5, 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: Chronic (10) Hypothyroidism Current Visit: No Status: Chronic (11) Hepatitis Current Visit: Yes Status: Acute (12) History of back pain Current Visit: Yes Status: Acute (13) Lower extremity pain Current Visit: Yes Status: Acute (14) Prophylactic measure Current Visit: No Status: Acute - Assessment and Plan (Free Text) Assessment: 81 year old female with PMHx of CHF, A-Fib, HTN, Anemia, DM, hypothyroidism, Gastritis, Hepatitis C (treated) presenting with SOB, shoulder pain since this morning and Acute Renal Failure Today: 12/26/16 Hemodialysis held due to Hgb of 5.9, s/p transfusion of 1u pRBC. Cardio: CHF, A-Fib, HTN; hx of cardiac cath w/ normal findings 03/2015 - 06/28/16 Echo showed EF of 83% with borderline concentric LVH. Mild-moderate mitral regurgitation - 12/01 EKG: normal, NSR - ProBNP today: 59920 - Cardiology, Dr Little, consulted - - Continue home med Amiodarone 200 mg daily - Continue home med Cardizem 240 mg daily Nephro: Acute Renal Failure - BUN/Cr elevated today: 93/7.8 - s/p permacath placement (12/25) with plan for HD today - Nephrology Dr. 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 [place] [facility] [place] 12[place]7 [place] - Consult hematology Oncology, Dr. Juan Almeida: h/o asthma - continue home meds: Pulmicort Flexhaler 90 mcg INH RQ12hr - f/u sputum culture Endo: DM, hypothyroidism - Continue home meds: Glipizide 10 mg daily; Levothyroxine 75 mcg daily - Start low ISS protocol - daily Accuchecks ACHS GI: Gastritis, Hepatitis C (treated) - Continue home meds Omeprazole 20 mg daily - RUQ pain will f/u Amylase, lipase - 12/22 stool occult blood: negative Msk: generalized LE pain, h/o back pain - Continue home meds: Magnesium oxide 400 mg BID; Tramadol-Acetaminophen 32.5- 325 mg 2 tablets Q6hr - Lidoderm patch 5% daily prn Prophylaxis: DVT: SCD GI: Omeprazole 20 mg daily <Pepe Kessler S - Last Filed: 12/26/16 18:29> CCU Objective - Vital Signs / Intake & Output Vital Signs (Last 4 hours): Vital Signs Temp Pulse Pulse Resp BP BP Pulse Ox 12/26/16 17:00 83 19 96 12/26/16 16:53 81 18 122/49 L 89 L 12/26/16 16:00 98 F 80 18 77 L 12/26/16 15:53 80 21 132/50 L 12/26/16 15:48 80 24 128/46 L 89 L 12/26/16 15:40 98.1 F 77 77 18 133/50 L 133/50 L 96 12/26/16 15:33 78 22 133/50 L 12/26/16 15:20 136/66 12/26/16 15:18 77 21 136/44 L 12/26/16 15:07 98 F 77 16 133/51 L 12/26/16 15:05 133/51 L 12/26/16 15:03 77 13 133/51 L 97 12/26/16 15:00 76 17 97 12/26/16 14:58 77 16 140/43 L 12/26/16 14:52 98.1 F 77 16 141/41 L 12/26/16 14:50 141/41 L 12/26/16 14:48 79 15 141/41 L 93 L 12/26/16 14:37 98.1 F 77 18 124/47 L 12/26/16 14:33 77 17 124/47 L 96 Intake and Output (Last 8hrs): Intake & Output 12/26/16 12/26/16 12/26/16 06:59 14:59 22:59 Intake Total 1715 1240 515 Output Total 640 125 40 Balance 1075 1115 475 Weight 188 lb 0.869 oz Intake: Intake, IV Amount 1150 1000 50 Right Wrist 1150 1000 50 Oral 240 240 120 Blood Product 325 0 325 Red Blood Cells Cpd As1 0 325 Lr Unit [id number] Red Blood Cells Cpd As1 325 Lr Unit [id number] Other 20 Red Blood Cells Cpd As1 20 Lr Unit [id number] Output: Urine 640 125 40 Urethral (Morgan) 640 125 40 - Medications Active Medications: Active Medications Generic Name Dose Route Start Last Admin Trade Name Angeloq PRN Reason Stop Dose Admin Famotidine 20 mg 12/27/16 10:00 Pepcid PO DAILY MARIBETH Ferrous Sulfate 325 mg 12/26/16 10:00 12/26/16 09:49 Feosol PO 325 mg DAILY MARIBETH Administration Glipizide 10 mg 12/27/16 10:00 Glucotrol PO DAILY MARIBETH Piperacillin Sod/Tazobactam Sod 2.25 gm in 50 mls @ 100 mls/hr 12/25/16 23:00 12/26/16 15:51 Zosyn 2.25 Gm Iv Premix IVPB 100 mls/hr Q8H MARIBETH Administration Doxycycline Hyclate 100 mg/ 100 mls @ 100 mls/hr 12/25/16 21:00 12/26/16 09: 53 Sodium Chloride IVPB 100 mls/hr Q12H MARIBETH Administration Insulin Human Regular 0 unit 12/26/16 16:30 12/26/16 17:41 Novolin R SC 1 unit ACHS MARIBETH Administration Protocol Levothyroxine Sodium 75 mcg 12/26/16 06:30 12/26/16 07:08 Synthroid PO 75 mcg DAILY@0630 MARIBETH Administration Sevelamer Carbonate 0.8 gm 12/26/16 12:00 12/26/16 17:42 Renvela PO 0.8 gm TIDCC MARIBETH Administration - Patient Studies Lab Studies: Lab Studies 12/26/16 12/26/16 12/26/16 Range/Units 16:16 14:22 14:22 WBC (4.8-10.8) K/uL RBC (3.80-5.20) Mil/uL Hgb (11.0-16.0) g/dL Hct (34.0-47.0) % MCV (81.0-99.0) fL MCH (27.0-31.0) pg MCHC (33.0-37.0) g/dL RDW (11.5-14.5) % Plt Count (130-400) K/uL MPV (7.2-11.7) fL Neut % (Auto) (50.0-75.0) % Lymph % (Auto) (20.0-40.0) % Mckenzie % (Auto) (0.0-10.0) % Eos % (Auto) (0.0-4.0) % Baso % (Auto) (0.0-2.0) % Neut # (1.8-7.0) K/uL Lymph # (1.0-4.3) K/uL Mckenzie # (0.0-0.8) K/uL Eos # (0.0-0.7) K/uL Baso # (0.0-0.2) K/uL Neutrophils % (Manual) (50-75) % Band Neutrophils % (0-2) % Lymphocytes % (Manual) (20-40) % Monocytes % (Manual) (0-10) % Eosinophils % (Manual) (0-4) % Basophils % (Manual) (0-2) % Nucleated RBC % (0-0) % Platelet Estimate (NORMAL) Large Platelets Polychromasia Hypochromasia (manual) Poikilocytosis (manual Anisocytosis (manual) Microcytosis (manual) Macrocytosis (manual) Target Cells PT (9.7-12.2) SECONDS INR APTT (21-34) SECONDS Sodium (132-148) mmol/L Potassium (3.6-5.2) mmol/L Chloride (98-107) mmol/L Carbon Dioxide (22-30) mmol/L Anion Gap (10-20) BUN (7-17) mg/dL Creatinine (0.7-1.2) MG/DL Est GFR ( Amer) Est GFR (Non-Af Amer) POC Glucose (mg/dL) 151 H (65-110) mg/dL Random Glucose (65-105) mg/dL Calcium (8.6-10.4) mg/dl Phosphorus (2.5-4.5) mg/dL Magnesium (1.6-2.3) mg/dL Total Bilirubin (0.2-1.3) mg/dL AST (14-36) U/L ALT (9-52) U/L Alkaline Phosphatase (38-126) U/L Lactate Dehydrogenase (313-618) U/L Total Protein (6.3-8.3) g/dL Albumin (3.5-5.0) g/dL Globulin (2.2-3.9) gm/dL Albumin/Globulin Ratio (1.0-2.1) 25-OH Vitamin D Total (30.0-100.0) NG/ML Urine Color (YELLOW) Urine Clarity (Clear) Urine pH (5.0-8.0) Ur Specific [place] (1.003-1.030) Urine Protein (NEGATIVE) mg/dL Urine Glucose (UA) (Normal) mg/dL Urine Ketones (NEGATIVE) mg/dL Urine Blood (NEGATIVE) Urine Nitrate (NEGATIVE) Urine Bilirubin (NEGATIVE) Urine Urobilinogen (0.2-1.0) mg/dL Ur Leukocyte Esterase (Negative) Roman/uL Urine WBC (Auto) (0-5) /hpf Urine RBC (Auto) (0-3) /hpf Ur Squamous Epith Cells (0-5) /hpf Amorphous Sediment (<OCC) /ul Hyaline Casts (0-2) /lpf Hep Bs Antigen Negative (NEGATIVE) Hep Bs Antibody Negative (NEGATIVE) Hep B Core IgM Ab Negative (NEGATIVE) Hepatitis C Antibody Reactive (NEGATIVE) 12/26/16 12/26/16 12/26/16 Range/Units 13:56 11:33 08:05 WBC (4.8-10.8) K/uL RBC (3.80-5.20) Mil/uL Hgb (11.0-16.0) g/dL Hct (34.0-47.0) % MCV (81.0-99.0) fL MCH (27.0-31.0) pg MCHC (33.0-37.0) g/dL RDW (11.5-14.5) % Plt Count (130-400) K/uL MPV (7.2-11.7) fL Neut % (Auto) (50.0-75.0) % Lymph % (Auto) (20.0-40.0) % Mckenzie % (Auto) (0.0-10.0) % Eos % (Auto) (0.0-4.0) % Baso % (Auto) (0.0-2.0) % Neut # (1.8-7.0) K/uL Lymph # (1.0-4.3) K/uL Mckenzie # (0.0-0.8) K/uL Eos # (0.0-0.7) K/uL Baso # (0.0-0.2) K/uL Neutrophils % (Manual) (50-75) % Band Neutrophils % (0-2) % Lymphocytes % (Manual) (20-40) % Monocytes % (Manual) (0-10) % Eosinophils % (Manual) (0-4) % Basophils % (Manual) (0-2) % Nucleated RBC % (0-0) % Platelet Estimate (NORMAL) Large Platelets Polychromasia Hypochromasia (manual) Poikilocytosis (manual Anisocytosis (manual) Microcytosis (manual) Macrocytosis (manual) Target Cells PT 13.1 H (9.7-12.2) SECONDS INR 1.2 APTT 39 H (21-34) SECONDS Sodium (132-148) mmol/L Potassium (3.6-5.2) mmol/L Chloride (98-107) mmol/L Carbon Dioxide (22-30) mmol/L Anion Gap (10-20) BUN (7-17) mg/dL Creatinine (0.7-1.2) MG/DL Est GFR ( Amer) Est GFR (Non-Af Amer) POC Glucose (mg/dL) 197 H (65-110) mg/dL Random Glucose (65-105) mg/dL Calcium (8.6-10.4) mg/dl Phosphorus (2.5-4.5) mg/dL Magnesium (1.6-2.3) mg/dL Total Bilirubin (0.2-1.3) mg/dL AST (14-36) U/L ALT (9-52) U/L Alkaline Phosphatase (38-126) U/L Lactate Dehydrogenase (313-618) U/L Total Protein (6.3-8.3) g/dL Albumin (3.5-5.0) g/dL Globulin (2.2-3.9) gm/dL Albumin/Globulin Ratio (1.0-2.1) 25-OH Vitamin D Total 66.6 (30.0-100.0) NG/ML Urine Color (YELLOW) Urine Clarity (Clear) Urine pH (5.0-8.0) Ur Specific [place] (1.003-1.030) Urine Protein (NEGATIVE) mg/dL Urine Glucose (UA) (Normal) mg/dL Urine Ketones (NEGATIVE) mg/dL Urine Blood (NEGATIVE) Urine Nitrate (NEGATIVE) Urine Bilirubin (NEGATIVE) Urine Urobilinogen (0.2-1.0) mg/dL Ur Leukocyte Esterase (Negative) Roman/uL Urine WBC (Auto) (0-5) /hpf Urine RBC (Auto) (0-3) /hpf Ur Squamous Epith Cells (0-5) /hpf Amorphous Sediment (<OCC) /ul Hyaline Casts (0-2) /lpf Hep Bs Antigen (NEGATIVE) Hep Bs Antibody (NEGATIVE) Hep B Core IgM Ab (NEGATIVE) Hepatitis C Antibody (NEGATIVE) 12/26/16 12/26/16 12/26/16 Range/Units 08:05 08:05 07:34 WBC 13.4 H (4.8-10.8) K/uL RBC 2.22 L (3.80-5.20) Mil/uL Hgb 7.2 L (11.0-16.0) g/dL Hct 21.7 L (34.0-47.0) % MCV 97.7 (81.0-99.0) fL MCH 32.6 H (27.0-31.0) pg MCHC 33.4 (33.0-37.0) g/dL RDW 16.7 H (11.5-14.5) % Plt Count 256 (130-400) K/uL MPV 7.9 (7.2-11.7) fL Neut % (Auto) 85.6 H (50.0-75.0) % Lymph % (Auto) 8.5 L (20.0-40.0) % Mckenzie % (Auto) 4.5 (0.0-10.0) % Eos % (Auto) 0.9 (0.0-4.0) % Baso % (Auto) 0.5 (0.0-2.0) % Neut # 11.4 H (1.8-7.0) K/uL Lymph # 1.1 (1.0-4.3) K/uL Mckenzie # 0.6 (0.0-0.8) K/uL Eos # 0.1 (0.0-0.7) K/uL Baso # 0.1 (0.0-0.2) K/uL Neutrophils % (Manual) 85 H (50-75) % Band Neutrophils % 1 (0-2) % Lymphocytes % (Manual) 8 L (20-40) % Monocytes % (Manual) 5 (0-10) % Eosinophils % (Manual) (0-4) % Basophils % (Manual) 1 (0-2) % Nucleated RBC % 1 H (0-0) % Platelet Estimate Normal (NORMAL) Large Platelets Present Polychromasia Hypochromasia (manual) Moderate Poikilocytosis (manual Slight Anisocytosis (manual) Slight Microcytosis (manual) Slight Macrocytosis (manual) Slight Target Cells Slight PT (9.7-12.2) SECONDS INR APTT (21-34) SECONDS Sodium 139 (132-148) mmol/L Potassium 5.3 H (3.6-5.2) mmol/L Chloride 102 (98-107) mmol/L Carbon Dioxide 25 (22-30) mmol/L Anion Gap 17 (10-20) BUN 93 H (7-17) mg/dL Creatinine 7.8 H* (0.7-1.2) MG/DL Est GFR ( Amer) 6 Est GFR (Non-Af Amer) 5 POC Glucose (mg/dL) 155 H (65-110) mg/dL Random Glucose 119 H (65-105) mg/dL Calcium 12.8 H (8.6-10.4) mg/dl Phosphorus 8.2 H (2.5-4.5) mg/dL Magnesium 2.7 H (1.6-2.3) mg/dL Total Bilirubin 0.6 (0.2-1.3) mg/dL AST 18 (14-36) U/L ALT 23 (9-52) U/L Alkaline Phosphatase 56 (38-126) U/L Lactate Dehydrogenase (313-618) U/L Total Protein 6.4 (6.3-8.3) g/dL Albumin 3.5 (3.5-5.0) g/dL Globulin 2.9 (2.2-3.9) gm/dL Albumin/Globulin Ratio 1.2 (1.0-2.1) 25-OH Vitamin D Total (30.0-100.0) NG/ML Urine Color (YELLOW) Urine Clarity (Clear) Urine pH (5.0-8.0) Ur Specific [place] (1.003-1.030) Urine Protein (NEGATIVE) mg/dL Urine Glucose (UA) (Normal) mg/dL Urine Ketones (NEGATIVE) mg/dL Urine Blood (NEGATIVE) Urine Nitrate (NEGATIVE) Urine Bilirubin (NEGATIVE) Urine Urobilinogen (0.2-1.0) mg/dL Ur Leukocyte Esterase (Negative) Roman/uL Urine WBC (Auto) (0-5) /hpf Urine RBC (Auto) (0-3) /hpf Ur Squamous Epith Cells (0-5) /hpf Amorphous Sediment (<OCC) /ul Hyaline Casts (0-2) /lpf Hep Bs Antigen (NEGATIVE) Hep Bs Antibody (NEGATIVE) Hep B Core IgM Ab (NEGATIVE) Hepatitis C Antibody (NEGATIVE) 12/25/16 12/25/16 12/25/16 Range/Units 21:39 21:39 21:39 WBC 13.0 H (4.8-10.8) K/uL RBC 1.86 L (3.80-5.20) Mil/uL Hgb 5.9 L* (11.0-16.0) g/dL Hct 18.1 L (34.0-47.0) % MCV 97.0 (81.0-99.0) fL MCH 31.8 H (27.0-31.0) pg MCHC 32.8 L (33.0-37.0) g/dL RDW 17.1 H (11.5-14.5) % Plt Count 258 (130-400) K/uL MPV 8.1 (7.2-11.7) fL Neut % (Auto) 89.2 H (50.0-75.0) % Lymph % (Auto) 6.2 L (20.0-40.0) % Mckenzie % (Auto) 3.7 (0.0-10.0) % Eos % (Auto) 0.6 (0.0-4.0) % Baso % (Auto) 0.3 (0.0-2.0) % Neut # 11.6 H (1.8-7.0) K/uL Lymph # 0.8 L (1.0-4.3) K/uL Mckenzie # 0.5 (0.0-0.8) K/uL Eos # 0.1 (0.0-0.7) K/uL Baso # 0.0 (0.0-0.2) K/uL Neutrophils % (Manual) 94 H (50-75) % Band Neutrophils % (0-2) % Lymphocytes % (Manual) 4 L (20-40) % Monocytes % (Manual) 1 (0-10) % Eosinophils % (Manual) 1 (0-4) % Basophils % (Manual) (0-2) % Nucleated RBC % (0-0) % Platelet Estimate Normal (NORMAL) Large Platelets Polychromasia Slight Hypochromasia (manual) Moderate Poikilocytosis (manual Anisocytosis (manual) Slight Microcytosis (manual) Macrocytosis (manual) Target Cells PT (9.7-12.2) SECONDS INR APTT (21-34) SECONDS Sodium 137 (132-148) mmol/L Potassium 4.9 (3.6-5.2) mmol/L Chloride 100 (98-107) mmol/L Carbon Dioxide 23 (22-30) mmol/L Anion Gap 19 (10-20) BUN 95 H (7-17) mg/dL Creatinine 7.7 H* (0.7-1.2) MG/DL Est GFR ( Amer) 6 Est GFR (Non-Af Amer) 5 POC Glucose (mg/dL) (65-110) mg/dL Random Glucose 120 H (65-105) mg/dL Calcium 12.8 H (8.6-10.4) mg/dl Phosphorus (2.5-4.5) mg/dL Magnesium (1.6-2.3) mg/dL Total Bilirubin 0.5 (0.2-1.3) mg/dL AST 19 (14-36) U/L ALT 27 (9-52) U/L Alkaline Phosphatase 54 (38-126) U/L Lactate Dehydrogenase 522 (313-618) U/L Total Protein 6.1 L (6.3-8.3) g/dL Albumin 3.4 L (3.5-5.0) g/dL Globulin 2.7 (2.2-3.9) gm/dL Albumin/Globulin Ratio 1.2 (1.0-2.1) 25-OH Vitamin D Total (30.0-100.0) NG/ML Urine Color (YELLOW) Urine Clarity (Clear) Urine pH (5.0-8.0) Ur Specific [place] (1.003-1.030) Urine Protein (NEGATIVE) mg/dL Urine Glucose (UA) (Normal) mg/dL Urine Ketones (NEGATIVE) mg/dL Urine Blood (NEGATIVE) Urine Nitrate (NEGATIVE) Urine Bilirubin (NEGATIVE) Urine Urobilinogen (0.2-1.0) mg/dL Ur Leukocyte Esterase (Negative) Roman/uL Urine WBC (Auto) (0-5) /hpf Urine RBC (Auto) (0-3) /hpf Ur Squamous Epith Cells (0-5) /hpf Amorphous Sediment (<OCC) /ul Hyaline Casts (0-2) /lpf Hep Bs Antigen (NEGATIVE) Hep Bs Antibody (NEGATIVE) Hep B Core IgM Ab (NEGATIVE) Hepatitis C Antibody (NEGATIVE) 12/25/16 12/25/16 Range/Units 21:26 16:14 WBC (4.8-10.8) K/uL RBC (3.80-5.20) Mil/uL Hgb (11.0-16.0) g/dL Hct (34.0-47.0) % MCV (81.0-99.0) fL MCH (27.0-31.0) pg MCHC (33.0-37.0) g/dL RDW (11.5-14.5) % Plt Count (130-400) K/uL MPV (7.2-11.7) fL Neut % (Auto) (50.0-75.0) % Lymph % (Auto) (20.0-40.0) % Mckenzie % (Auto) (0.0-10.0) % Eos % (Auto) (0.0-4.0) % Baso % (Auto) (0.0-2.0) % Neut # (1.8-7.0) K/uL Lymph # (1.0-4.3) K/uL Mckenzie # (0.0-0.8) K/uL Eos # (0.0-0.7) K/uL Baso # (0.0-0.2) K/uL Neutrophils % (Manual) (50-75) % Band Neutrophils % (0-2) % Lymphocytes % (Manual) (20-40) % Monocytes % (Manual) (0-10) % Eosinophils % (Manual) (0-4) % Basophils % (Manual) (0-2) % Nucleated RBC % (0-0) % Platelet Estimate (NORMAL) Large Platelets Polychromasia Hypochromasia (manual) Poikilocytosis (manual Anisocytosis (manual) Microcytosis (manual) Macrocytosis (manual) Target Cells PT (9.7-12.2) SECONDS INR APTT (21-34) SECONDS Sodium (132-148) mmol/L Potassium (3.6-5.2) mmol/L Chloride (98-107) mmol/L Carbon Dioxide (22-30) mmol/L Anion Gap (10-20) BUN (7-17) mg/dL Creatinine (0.7-1.2) MG/DL Est GFR ( Amer) Est GFR (Non-Af Amer) POC Glucose (mg/dL) 147 H (65-110) mg/dL Random Glucose (65-105) mg/dL Calcium (8.6-10.4) mg/dl Phosphorus (2.5-4.5) mg/dL Magnesium (1.6-2.3) mg/dL Total Bilirubin (0.2-1.3) mg/dL AST (14-36) U/L ALT (9-52) U/L Alkaline Phosphatase (38-126) U/L Lactate Dehydrogenase (313-618) U/L Total Protein (6.3-8.3) g/dL Albumin (3.5-5.0) g/dL Globulin (2.2-3.9) gm/dL Albumin/Globulin Ratio (1.0-2.1) 25-OH Vitamin D Total (30.0-100.0) NG/ML Urine Color Yellow (YELLOW) Urine Clarity Turbid (Clear) Urine pH 5.0 (5.0-8.0) Ur Specific [place] 1.010 (1.003-1.030) Urine Protein 1+ H (NEGATIVE) mg/dL Urine Glucose (UA) Normal (Normal) mg/dL Urine Ketones Negative (NEGATIVE) mg/dL Urine Blood 1+ H (NEGATIVE) Urine Nitrate Negative (NEGATIVE) Urine Bilirubin Negative (NEGATIVE) Urine Urobilinogen Normal (0.2-1.0) mg/dL Ur Leukocyte Esterase 3+ H (Negative) Roman/uL Urine WBC (Auto) 157 H (0-5) /hpf Urine RBC (Auto) 13 H (0-3) /hpf Ur Squamous Epith Cells 4 (0-5) /hpf Amorphous Sediment Rare H (<OCC) /ul Hyaline Casts 3-5 H (0-2) /lpf Hep Bs Antigen (NEGATIVE) Hep Bs Antibody (NEGATIVE) Hep B Core IgM Ab (NEGATIVE) Hepatitis C Antibody (NEGATIVE) Laboratory Results - last 24 hr 12/25/16 12/25/16 12/25/16 16:14 21:26 21:39 WBC RBC Hgb Hct MCV MCH MCHC RDW Plt Count MPV Neut % (Auto) Lymph % (Auto) Mckenzie % (Auto) Eos % (Auto) Baso % (Auto) Neut # Lymph # Mckenzie # Eos # Baso # Neutrophils % (Manual) Band Neutrophils % Lymphocytes % (Manual) Monocytes % (Manual) Eosinophils % (Manual) Basophils % (Manual) Nucleated RBC % Platelet Estimate Large Platelets Polychromasia Hypochromasia (manual) Poikilocytosis (manual Anisocytosis (manual) Microcytosis (manual) Macrocytosis (manual) Target Cells PT INR APTT Sodium Potassium Chloride Carbon Dioxide Anion Gap BUN Creatinine Est GFR ( Amer) Est GFR (Non-Af Amer) POC Glucose (mg/dL) 147 H Random Glucose Calcium Phosphorus Magnesium Total Bilirubin AST ALT Alkaline Phosphatase Lactate Dehydrogenase 522 Total Protein Albumin Globulin Albumin/Globulin Ratio 25-OH Vitamin D Total Urine Color Yellow Urine Clarity Turbid Urine pH 5.0 Ur Specific [place] 1.010 Urine Protein 1+ H Urine Glucose (UA) Normal Urine Ketones Negative Urine Blood 1+ H Urine Nitrate Negative Urine Bilirubin Negative Urine Urobilinogen Normal Ur Leukocyte Esterase 3+ H Urine WBC (Auto) 157 H Urine RBC (Auto) 13 H Ur Squamous Epith Cells 4 Amorphous Sediment Rare H Hyaline Casts 3-5 H Hep Bs Antigen Hep Bs Antibody Hep B Core IgM Ab Hepatitis C Antibody 12/25/16 12/25/16 12/26/16 21:39 21:39 07:34 WBC 13.0 H RBC 1.86 L Hgb 5.9 L* Hct 18.1 L MCV 97.0 MCH 31.8 H MCHC 32.8 L RDW 17.1 H Plt Count 258 MPV 8.1 Neut % (Auto) 89.2 H Lymph % (Auto) 6.2 L Mckenzie % (Auto) 3.7 Eos % (Auto) 0.6 Baso % (Auto) 0.3 Neut # 11.6 H Lymph # 0.8 L Mckenzie # 0.5 Eos # 0.1 Baso # 0.0 Neutrophils % (Manual) 94 H Band Neutrophils % Lymphocytes % (Manual) 4 L Monocytes % (Manual) 1 Eosinophils % (Manual) 1 Basophils % (Manual) Nucleated RBC % Platelet Estimate Normal Large Platelets Polychromasia Slight Hypochromasia (manual) Moderate Poikilocytosis (manual Anisocytosis (manual) Slight Microcytosis (manual) Macrocytosis (manual) Target Cells PT INR APTT Sodium 137 Potassium 4.9 Chloride 100 Carbon Dioxide 23 Anion Gap 19 BUN 95 H Creatinine 7.7 H* Est GFR ( Amer) 6 Est GFR (Non-Af Amer) 5 POC Glucose (mg/dL) 155 H Random Glucose 120 H Calcium 12.8 H Phosphorus Magnesium Total Bilirubin 0.5 AST 19 ALT 27 Alkaline Phosphatase 54 Lactate Dehydrogenase Total Protein 6.1 L Albumin 3.4 L Globulin 2.7 Albumin/Globulin Ratio 1.2 25-OH Vitamin D Total Urine Color Urine Clarity Urine pH Ur Specific [place] Urine Protein Urine Glucose (UA) Urine Ketones Urine Blood Urine Nitrate Urine Bilirubin Urine Urobilinogen Ur Leukocyte Esterase Urine WBC (Auto) Urine RBC (Auto) Ur Squamous Epith Cells Amorphous Sediment Hyaline Casts Hep Bs Antigen Hep Bs Antibody Hep B Core IgM Ab Hepatitis C Antibody 09/12/17 09/12/17 09/12/17 08:05 08:05 08:05 WBC 13.4 H RBC 2.22 L Hgb 7.2 L Hct 21.7 L MCV 97.7 MCH 32.6 H MCHC 33.4 RDW 16.7 H Plt Count 256 MPV 7.9 Neut % (Auto) 85.6 H Lymph % (Auto) 8.5 L Mckenzie % (Auto) 4.5 Eos % (Auto) 0.9 Baso % (Auto) 0.5 Neut # 11.4 H Lymph # 1.1 Mckenzie # 0.6 Eos # 0.1 Baso # 0.1 Neutrophils % (Manual) 85 H Band Neutrophils % 1 Lymphocytes % (Manual) 8 L Monocytes % (Manual) 5 Eosinophils % (Manual) Basophils % (Manual) 1 Nucleated RBC % 1 H Platelet Estimate Normal Large Platelets Present Polychromasia Hypochromasia (manual) Moderate Poikilocytosis (manual Slight Anisocytosis (manual) Slight Microcytosis (manual) Slight Macrocytosis (manual) Slight Target Cells Slight PT 13.1 H INR 1.2 APTT 39 H Sodium 139 Potassium 5.3 H Chloride 102 Carbon Dioxide 25 Anion Gap 17 BUN 93 H Creatinine 7.8 H* Est GFR ( Amer) 6 Est GFR (Non-Af Amer) 5 POC Glucose (mg/dL) Random Glucose 119 H Calcium 12.8 H Phosphorus 8.2 H Magnesium 2.7 H Total Bilirubin 0.6 AST 18 ALT 23 Alkaline Phosphatase 56 Lactate Dehydrogenase Total Protein 6.4 Albumin 3.5 Globulin 2.9 Albumin/Globulin Ratio 1.2 25-OH Vitamin D Total Urine Color Urine Clarity Urine pH Ur Specific [place] Urine Protein Urine Glucose (UA) Urine Ketones Urine Blood Urine Nitrate Urine Bilirubin Urine Urobilinogen Ur Leukocyte Esterase Urine WBC (Auto) Urine RBC (Auto) Ur Squamous Epith Cells Amorphous Sediment Hyaline Casts Hep Bs Antigen Hep Bs Antibody Hep B Core IgM Ab Hepatitis C Antibody 12/26/16 12/26/16 12/26/16 11:33 13:56 14:22 WBC RBC Hgb Hct MCV MCH MCHC RDW Plt Count MPV Neut % (Auto) Lymph % (Auto) Mckenzie % (Auto) Eos % (Auto) Baso % (Auto) Neut # Lymph # Mckenzie # Eos # Baso # Neutrophils % (Manual) Band Neutrophils % Lymphocytes % (Manual) Monocytes % (Manual) Eosinophils % (Manual) Basophils % (Manual) Nucleated RBC % Platelet Estimate Large Platelets Polychromasia Hypochromasia (manual) Poikilocytosis (manual Anisocytosis (manual) Microcytosis (manual) Macrocytosis (manual) Target Cells PT INR APTT Sodium Potassium Chloride Carbon Dioxide Anion Gap BUN Creatinine Est GFR ( Amer) Est GFR (Non-Af Amer) POC Glucose (mg/dL) 197 H Random Glucose Calcium Phosphorus Magnesium Total Bilirubin AST ALT Alkaline Phosphatase Lactate Dehydrogenase Total Protein Albumin Globulin Albumin/Globulin Ratio 25-OH Vitamin D Total 66.6 Urine Color Urine Clarity Urine pH Ur Specific [place] Urine Protein Urine Glucose (UA) Urine Ketones Urine Blood Urine Nitrate Urine Bilirubin Urine Urobilinogen Ur Leukocyte Esterase Urine WBC (Auto) Urine RBC (Auto) Ur Squamous Epith Cells Amorphous Sediment Hyaline Casts Hep Bs Antigen Negative Hep Bs Antibody Hep B Core IgM Ab Negative Hepatitis C Antibody Reactive 12/26/16 12/26/16 14:22 16:16 WBC RBC Hgb Hct MCV MCH MCHC RDW Plt Count MPV Neut % (Auto) Lymph % (Auto) Mckenzie % (Auto) Eos % (Auto) Baso % (Auto) Neut # Lymph # Mckenzie # Eos # Baso # Neutrophils % (Manual) Band Neutrophils % Lymphocytes % (Manual) Monocytes % (Manual) Eosinophils % (Manual) Basophils % (Manual) Nucleated RBC % Platelet Estimate Large Platelets Polychromasia Hypochromasia (manual) Poikilocytosis (manual Anisocytosis (manual) Microcytosis (manual) Macrocytosis (manual) Target Cells PT INR APTT Sodium Potassium Chloride Carbon Dioxide Anion Gap BUN Creatinine Est GFR ( Amer) Est GFR (Non-Af Amer) POC Glucose (mg/dL) 151 H Random Glucose Calcium Phosphorus Magnesium Total Bilirubin AST ALT Alkaline Phosphatase Lactate Dehydrogenase Total Protein Albumin Globulin Albumin/Globulin Ratio 25-OH Vitamin D Total Urine Color Urine Clarity Urine pH Ur Specific [place] Urine Protein Urine Glucose (UA) Urine Ketones Urine Blood Urine Nitrate Urine Bilirubin Urine Urobilinogen Ur Leukocyte Esterase Urine WBC (Auto) Urine RBC (Auto) Ur Squamous Epith Cells Amorphous Sediment Hyaline Casts Hep Bs Antigen Hep Bs Antibody Negative Hep B Core IgM Ab Hepatitis C Antibody Critical Care Progress Note - Nutrition Nutrition: Nutrition Category Date Time Status Renal Diet [DIET] Diets 12/25/16 Dinner Active Attending/Attestation - Attestation I have personally seen and examined this patient.: Yes I have fully participated in the care of the patient.: Yes I have reviewed all pertinent clinical information: Yes Notes (Text): 12/26/16 18:28 Patient seen and examined in the intensive care unit. Case discussed with house staff in the morning rounds. Started on hemodialysis today workup in progress to rule out multiple myeloma Monitor calcium level Continue present treatment discussed with family at length
--- NOTE | 2016-12-26 08:52 | CP.PCM.PN ---
Subjective - Date & Time of Evaluation Date of Evaluation: 12/26/16 Time of Evaluation: 08:49 - Subjective Subjective: Surgery Pt s&e. Pt had HD catheter placement yesterday and tolerated it well. Denies P/F /C/N/V/D/CP/INGRAM. Objective - Vital Signs/Intake and Output Vital Signs (last 24 hours): Temp Pulse Resp BP Pulse Ox 97.9 F 76 15 139/62 97 12/26/16 04:00 12/26/16 06:50 12/26/16 06:50 12/26/16 06:48 12/26/16 06:50 Intake and Output: 12/26/16 12/26/16 06:59 18:59 Intake Total 2115 Output Total 975 Balance 1140 - Medications Medications: Current Medications Ferrous Sulfate (Feosol) 325 mg PO DAILY [facility] Piperacillin Sod/Tazobactam Sod (Zosyn 2.25 Gm Iv Premix) 2.25 gm in 50 mls @ 100 mls/hr IVPB Q8H [facility] Last Admin: 12/26/16 06:00 Dose: 100 mls/hr Doxycycline Hyclate 100 mg/ (Sodium Chloride) 100 mls @ 100 mls/hr IVPB Q12H [facility] Last Admin: 12/25/16 22:00 Dose: 100 mls/hr Sodium Chloride (Sodium Chloride 0.9%) 1,000 mls @ 150 mls/hr IV .Q6H40M [facility] Last Admin: 12/26/16 07:11 Dose: Not Given Levothyroxine Sodium (Synthroid) 75 mcg PO DAILY@0630 [facility] Last Admin: 12/26/16 07:08 Dose: 75 mcg - Labs Labs: 12/26/16 08:05 12/26/16 08:05 PT 13.1 SECONDS (9.7-12.2) H 12/26/16 08:05 INR 1.2 12/26/16 08:05 APTT 39 SECONDS (21-34) H 12/26/16 08:05 - Constitutional Appears: No Acute Distress - Head Exam Head Exam: ATRAUMATIC, NORMAL INSPECTION, NORMOCEPHALIC - Eye Exam Eye Exam: EOMI, Normal appearance, PERRL Pupil Exam: NORMAL ACCOMODATION, PERRL - ENT Exam ENT Exam: Mucous Membranes Moist, Normal Exam - Neck Exam Neck Exam: Full ROM, Normal Inspection. absent: Lymphadenopathy Additional comments: RIJ HD cath in place. No bleeding. - Respiratory Exam Respiratory Exam: Clear to Ausculation Bilateral, NORMAL BREATHING PATTERN - Cardiovascular Exam Cardiovascular Exam: REGULAR RHYTHM, +S1, +S2. absent: Murmur - GI/Abdominal Exam GI & Abdominal Exam: Soft, Normal Bowel Sounds. absent: Distended, Tenderness - Extremities Exam Extremities Exam: Full ROM, Normal Capillary Refill, Normal Inspection. absent : Joint Swelling, Pedal Edema - Back Exam Back Exam: NORMAL INSPECTION - Neurological Exam Neurological Exam: Alert, Awake, CN II-XII Intact, Normal Gait, Oriented x3 - Psychiatric Exam Psychiatric exam: Normal Affect, Normal Mood - Skin Skin Exam: Dry, Intact, Normal Color, Warm. absent: Erythema Assessment and Plan - Assessment and Plan (Free Text) Assessment: 81F with acute renal failure, hypercalcemia and fluid overload POD 1 sp HD catheter placement Plan: HD today further mgmt per primary team and nephrology d/w Dr Ontiveros
[2016-12-26 09:17] LABS: BASOPHIL 1 % (0-2); NUCLEATED RED BLOOD CELL 1 % (0-0); TOTAL CELLS COUNTED 100
[2016-12-26 09:18] LABS: NEUTROPHIL 85 % (50-75)
[2016-12-26 09:19] LABS: LARGE PLATELETS PRESENT
[2016-12-26 09:20] LABS: RBC URINE 13 /hpf (0-3); URINE BILIRUBIN NEGATIVE (NEGATIVE); URINE BLOOD 1+ (NEGATIVE); URINE COLOR Yellow (YELLOW); URINE GLUCOSE (UA) NORMAL (Normal); URINE KETONE NEGATIVE (NEGATIVE); URINE LEUKOCYTE ESTERASE 3+ Leu/uL (Negative); URINE PROTEIN 1+ mg/dL (NEGATIVE); URINE UROBILINOGEN NORMAL mg/dL (0.2-1.0); WBC URINE 157 /hpf (0-5)
--- NOTE | 2016-12-26 10:17 | CP.PCM.CON ---
History of Present Illness - History of Present Illness History of Present Illness: HPI: Patient is a 81 year old female with PMHx of CHF, A-Fib, HTN, Anemia, DM, hypothyroidism, Gastritis, Hepatitis C (treated), chronic kidney disease. She presented with SOB with associated left shoulder pain and abdominal pain along with nausea and vomiting. She admits to headaches, shakiness, and weakness which started today when she noticed that her "blood was low". She also reports coughing with sputum of "dark " color. She admits to "foamy urine" and dysuria that occurs occasionally but is present today. She admits to constipation which she attributes to her Ferrous sulfate medication, last BM was 3 days ago. She denies fevers, chest pain, palpitations, or hematuria. Labs in Er showed, elevated ca, and creatinine, low hgb Pt had a permcath placed yesterday. She has a valencia in place, good uop. PMD: Dr. Winkler PMHx: CHF, A-Fib, HTN, Anemia, DM, hypothyroidism, Gastritis, Hepatitis C ( treated) PSH: Breast lipoma removal, EGD, Laparoscopic Enteroscopy in 2017 revealing gastritis and hiatal hernia but no bleeding Allergies: denies Social Hx: Former smoker- smoked 5 cigarettes per day for 5 years, quit 40 years ago. Denies alcohol and drugs. Lives with brother. Family Hx: Mother- Stroke in her 80s. Sister- colon cancer at 81 years old. Brother-pancreatic cancer at 85 years old. Medications: Ferrous Sulfate 325 mg daily, Levothyroxine 75 mcg PO daily, Budesonide 90 micrograms 1 puff Q12H, Amiodarone 200mg PO daily, Diltiazem ER 240mg PO daily, Glipizide 10mg PO daily, Anoro Ellipta 1 puff daily, Omeprazole , 20mg PO daily, Furosemide 40mg daily, Lidoderm path 5% daily, magnesium oxide 400 mg BID, Tramadol/Acetaminophen 32.5- 325 2 tabs Q6HR Review of Systems - Review of Systems All systems: reviewed and no additional remarkable complaints except (as per HPI ) Past Patient History - Past Medical History & Family History Past Medical History?: Yes - Past Social History Smoking Status: Former Smoker - CARDIAC Hx Cardia Arrhythmia: Yes Hx Congestive Heart Failure: Yes Hx Hypertension: Yes - PULMONARY Hx Respiratory Disorders: No - NEUROLOGICAL Hx Neurological Disorder: No - HEENT Hx HEENT Problems: Yes Hx Cataracts: Yes (bilateral) - RENAL Hx Chronic Kidney Disease: Yes Other/Comment: RENAL INSUFFICIENCY - ENDOCRINE/METABOLIC Hx Endocrine Disorders: Yes Hx Diabetes Mellitus Type 2: Yes Hx Hypothyroidism: Yes - HEMATOLOGICAL/ONCOLOGICAL Hx Anemia: Yes - INTEGUMENTARY Hx Dermatological Problems: No - MUSCULOSKELETAL/RHEUMATOLOGICAL Hx Arthritis: Yes - GASTROINTESTINAL Hx Gastrointestinal Disorders: Yes Hx Colostomy: Yes Hx Hemorrhoids: Yes - GENITOURINARY/GYNECOLOGICAL Hx Genitourinary Disorders: No - PSYCHIATRIC Hx Substance Use: No - SURGICAL HISTORY Hx Surgeries: No - ANESTHESIA Hx Anesthesia: No Hx Anesthesia Reactions: No Hx Malignant Hyperthermia: No Meds Allergies/Adverse Reactions: Allergies Allergy/AdvReac Type Severity Reaction Status Date / Time No Known Allergies Allergy Verified 12/01/16 07:55 - Medications Medications: Current Medications Ferrous Sulfate (Feosol) 325 mg PO DAILY [facility] Last Admin: 12/26/16 09:49 Dose: 325 mg Piperacillin Sod/Tazobactam Sod (Zosyn 2.25 Gm Iv Premix) 2.25 gm in 50 mls @ 100 mls/hr IVPB Q8H [facility] Last Admin: 12/26/16 06:00 Dose: 100 mls/hr Doxycycline Hyclate 100 mg/ (Sodium Chloride) 100 mls @ 100 mls/hr IVPB Q12H [facility] Last Admin: 12/26/16 09:53 Dose: 100 mls/hr Sodium Chloride (Sodium Chloride 0.9%) 1,000 mls @ 150 mls/hr IV .Q6H40M [facility] Last Admin: 12/26/16 07:11 Dose: Not Given Levothyroxine Sodium (Synthroid) 75 mcg PO DAILY@0630 [facility] Last Admin: 12/26/16 07:08 Dose: 75 mcg Physical Exam - Constitutional Appears: Chronically Ill (obese) - Head Exam Head Exam: NORMAL INSPECTION - Eye Exam Eye Exam: Normal appearance - ENT Exam ENT Exam: Mucous Membranes Moist, Normal Exam - Neck Exam Neck exam: Positive for: Normal Inspection - Respiratory Exam Respiratory Exam: Decreased Breath Sounds, Clear to Auscultation Bilateral, NORMAL BREATHING PATTERN - Cardiovascular Exam Cardiovascular Exam: REGULAR RHYTHM - GI/Abdominal Exam GI & Abdominal Exam: Distended, Normal Bowel Sounds, Soft - Extremities Exam Extremities exam: Positive for: normal inspection Results - Vital Signs Recent Vital Signs: Last Vital Signs Temp 97.9 F 12/26/16 04:00 Pulse 76 12/26/16 06:50 Resp 15 12/26/16 06:50 BP 139/62 12/26/16 06:48 Pulse Ox 97 12/26/16 06:50 - Labs Result Diagrams: 12/26/16 08:05 12/26/16 08:05 Labs: Laboratory Results - last 24 hr 12/25/16 12/25/16 12/25/16 16:04 16:14 16:20 WBC RBC Hgb Hct MCV MCH MCHC RDW Plt Count MPV Neut % (Auto) Lymph % (Auto) Gray % (Auto) Eos % (Auto) Baso % (Auto) Neut # Lymph # Gray # Eos # Baso # Neutrophils % (Manual) Band Neutrophils % Lymphocytes % (Manual) Monocytes % (Manual) Eosinophils % (Manual) Basophils % (Manual) Nucleated RBC % Platelet Estimate Large Platelets Polychromasia Hypochromasia (manual) Poikilocytosis (manual Anisocytosis (manual) Microcytosis (manual) Macrocytosis (manual) Target Cells PT INR APTT Sodium Potassium Chloride Carbon Dioxide Anion Gap BUN Creatinine Est GFR ( Amer) Est GFR (Non-Af Amer) POC Glucose (mg/dL) Random Glucose Calcium Phosphorus Magnesium Total Bilirubin AST ALT Alkaline Phosphatase Lactate Dehydrogenase Total Protein Albumin Globulin Albumin/Globulin Ratio Amylase 74 Lipase 58 Urine Color Yellow Yellow Urine Clarity Hazy Turbid Urine pH 5.0 5.0 Ur Specific [place] 1.015 1.010 Urine Protein 2+ H 1+ H Urine Glucose (UA) Normal Normal Urine Ketones Negative Negative Urine Blood 2+ H 1+ H Urine Nitrate Negative Negative Urine Bilirubin Negative Negative Urine Urobilinogen Normal Normal Ur Leukocyte Esterase 1+ H 3+ H Urine WBC (Auto) 11 H 157 H Urine RBC (Auto) 24 H 13 H Ur Squamous Epith Cells 4 Amorphous Sediment Rare H Hyaline Casts 3-5 H 12/25/16 12/25/16 12/25/16 21:26 21:39 21:39 WBC 13.0 H RBC 1.86 L Hgb 5.9 L* Hct 18.1 L MCV 97.0 MCH 31.8 H MCHC 32.8 L RDW 17.1 H Plt Count 258 MPV 8.1 Neut % (Auto) 89.2 H Lymph % (Auto) 6.2 L Gray % (Auto) 3.7 Eos % (Auto) 0.6 Baso % (Auto) 0.3 Neut # 11.6 H Lymph # 0.8 L Gray # 0.5 Eos # 0.1 Baso # 0.0 Neutrophils % (Manual) 94 H Band Neutrophils % Lymphocytes % (Manual) 4 L Monocytes % (Manual) 1 Eosinophils % (Manual) 1 Basophils % (Manual) Nucleated RBC % Platelet Estimate Normal Large Platelets Polychromasia Slight Hypochromasia (manual) Moderate Poikilocytosis (manual Anisocytosis (manual) Slight Microcytosis (manual) Macrocytosis (manual) Target Cells PT INR APTT Sodium Potassium Chloride Carbon Dioxide Anion Gap BUN Creatinine Est GFR ( Amer) Est GFR (Non-Af Amer) POC Glucose (mg/dL) 147 H Random Glucose Calcium Phosphorus Magnesium Total Bilirubin AST ALT Alkaline Phosphatase Lactate Dehydrogenase 522 Total Protein Albumin Globulin Albumin/Globulin Ratio Amylase Lipase Urine Color Urine Clarity Urine pH Ur Specific [place] Urine Protein Urine Glucose (UA) Urine Ketones Urine Blood Urine Nitrate Urine Bilirubin Urine Urobilinogen Ur Leukocyte Esterase Urine WBC (Auto) Urine RBC (Auto) Ur Squamous Epith Cells Amorphous Sediment Hyaline Casts 12/25/16 12/26/16 12/26/16 21:39 07:34 08:05 WBC 13.4 H RBC 2.22 L Hgb 7.2 L Hct 21.7 L MCV 97.7 MCH 32.6 H MCHC 33.4 RDW 16.7 H Plt Count 256 MPV 7.9 Neut % (Auto) 85.6 H Lymph % (Auto) 8.5 L Gray % (Auto) 4.5 Eos % (Auto) 0.9 Baso % (Auto) 0.5 Neut # 11.4 H Lymph # 1.1 Gray # 0.6 Eos # 0.1 Baso # 0.1 Neutrophils % (Manual) 85 H Band Neutrophils % 1 Lymphocytes % (Manual) 8 L Monocytes % (Manual) 5 Eosinophils % (Manual) Basophils % (Manual) 1 Nucleated RBC % 1 H Platelet Estimate Normal Large Platelets Present Polychromasia Hypochromasia (manual) Moderate Poikilocytosis (manual Slight Anisocytosis (manual) Slight Microcytosis (manual) Slight Macrocytosis (manual) Slight Target Cells Slight PT INR APTT Sodium 137 Potassium 4.9 Chloride 100 Carbon Dioxide 23 Anion Gap 19 BUN 95 H Creatinine 7.7 H* Est GFR ( Amer) 6 Est GFR (Non-Af Amer) 5 POC Glucose (mg/dL) 155 H Random Glucose 120 H Calcium 12.8 H Phosphorus Magnesium Total Bilirubin 0.5 AST 19 ALT 27 Alkaline Phosphatase 54 Lactate Dehydrogenase Total Protein 6.1 L Albumin 3.4 L Globulin 2.7 Albumin/Globulin Ratio 1.2 Amylase Lipase Urine Color Urine Clarity Urine pH Ur Specific [place] Urine Protein Urine Glucose (UA) Urine Ketones Urine Blood Urine Nitrate Urine Bilirubin Urine Urobilinogen Ur Leukocyte Esterase Urine WBC (Auto) Urine RBC (Auto) Ur Squamous Epith Cells Amorphous Sediment Hyaline Casts 12/26/16 12/26/16 08:05 08:05 WBC RBC Hgb Hct MCV MCH MCHC RDW Plt Count MPV Neut % (Auto) Lymph % (Auto) Gray % (Auto) Eos % (Auto) Baso % (Auto) Neut # Lymph # Gray # Eos # Baso # Neutrophils % (Manual) Band Neutrophils % Lymphocytes % (Manual) Monocytes % (Manual) Eosinophils % (Manual) Basophils % (Manual) Nucleated RBC % Platelet Estimate Large Platelets Polychromasia Hypochromasia (manual) Poikilocytosis (manual Anisocytosis (manual) Microcytosis (manual) Macrocytosis (manual) Target Cells PT 13.1 H INR 1.2 APTT 39 H Sodium 139 Potassium 5.3 H Chloride 102 Carbon Dioxide 25 Anion Gap 17 BUN 93 H Creatinine 7.8 H* Est GFR ( Amer) 6 Est GFR (Non-Af Amer) 5 POC Glucose (mg/dL) Random Glucose 119 H Calcium 12.8 H Phosphorus 8.2 H Magnesium 2.7 H Total Bilirubin 0.6 AST 18 ALT 23 Alkaline Phosphatase 56 Lactate Dehydrogenase Total Protein 6.4 Albumin 3.5 Globulin 2.9 Albumin/Globulin Ratio 1.2 Amylase Lipase Urine Color Urine Clarity Urine pH Ur Specific [place] Urine Protein Urine Glucose (UA) Urine Ketones Urine Blood Urine Nitrate Urine Bilirubin Urine Urobilinogen Ur Leukocyte Esterase Urine WBC (Auto) Urine RBC (Auto) Ur Squamous Epith Cells Amorphous Sediment Hyaline Casts Assessment & Plan (1) Anemia Status: Acute (2) Hypercalcemia Status: Acute (3) Renal failure Status: Acute (4) Acute kidney injury superimposed on chronic kidney disease Status: Acute (5) Atrial fibrillation with controlled ventricular response Status: Acute - Assessment and Plan (Free Text) Assessment: # MARIA EUGENIA / underlying ckd # hypercalcemia # severe anemia # lytic bone lesions Suggestive of multiple myeloma Hematology evaluation HD today Ca improving transfuse blood immunofixation pending check pth, pth rp. start renvela
--- NOTE | 2016-12-26 10:46 | RAD ---
PROCEDURE: Intraoperative Fluoroscopy. HISTORY: RENAL FAILURE FINDINGS: Fluoroscopic assistance was provided for right central venous catheter insertion. Please refer to the operative report from
[2016-12-26 12:12] LABS: LEGIONELLA AG URINE NEGATIVE (NEGATIVE)
[2016-12-26] MEDS: Sevelamer Carb 0.8 gm/Packet PO SCH ×2 (12:17→17:42)
--- NOTE | 2016-12-26 15:23 | CP.PCM.PN ---
Subjective - Date & Time of Evaluation Date of Evaluation: 12/26/16 Time of Evaluation: 14:45 - Subjective Subjective: Medical Attending Note: Patient seen, examined, and case discussed with ICU. Patient seen at bedside. Patient speaks both British and Czech. Field Technical Assistant: Dannielle (Carolyn name of the employee relations administrator through the in-demand service). Patient reports she is feeling better. patient denies headache, denies chest pain, report shortness of breathe but she attributes to lying on her back, denies abdominal pain, denies nausea, denies vomitting. Discussed with patient's nurse, patient to have dialysis which is currently going on at bedside (first time). Objective - Vital Signs/Intake and Output Vital Signs (last 24 hours): Temp Pulse Resp BP Pulse Ox 98 F 77 16 133/51 L 97 12/26/16 15:07 12/26/16 15:07 12/26/16 15:07 12/26/16 15:07 12/26/16 06:50 Intake and Output: 12/26/16 12/26/16 06:59 18:59 Intake Total 2115 0 Output Total 975 Balance 1140 0 - Medications Medications: Current Medications Ferrous Sulfate (Feosol) 325 mg PO DAILY [facility] Last Admin: 12/26/16 09:49 Dose: 325 mg Glipizide (Glucotrol) 10 mg PO DAILY [facility] Piperacillin Sod/Tazobactam Sod (Zosyn 2.25 Gm Iv Premix) 2.25 gm in 50 mls @ 100 mls/hr IVPB Q8H [facility] Last Admin: 12/26/16 06:00 Dose: 100 mls/hr Doxycycline Hyclate 100 mg/ (Sodium Chloride) 100 mls @ 100 mls/hr IVPB Q12H [facility] Last Admin: 12/26/16 09:53 Dose: 100 mls/hr Sodium Chloride (Sodium Chloride 0.9%) 1,000 mls @ 150 mls/hr IV .Q6H40M [facility] Last Admin: 12/26/16 12:18 Dose: 150 mls/hr Insulin Human Regular (Novolin R) 0 unit SC ACHS MARIBETH PRN Reason: Protocol Levothyroxine Sodium (Synthroid) 75 mcg PO DAILY@0630 [facility] Last Admin: 12/26/16 07:08 Dose: 75 mcg Sevelamer Carbonate (Renvela) 0.8 gm PO TIDCC MARIBETH Last Admin: 12/26/16 12:17 Dose: 0.8 gm - Labs Labs: 12/26/16 08:05 12/26/16 08:05 PT 13.1 SECONDS (9.7-12.2) H 12/26/16 08:05 INR 1.2 12/26/16 08:05 APTT 39 SECONDS (21-34) H 12/26/16 08:05 - Constitutional Appears: Non-toxic, No Acute Distress - Head Exam Head Exam: NORMAL INSPECTION Additional comments: obese female - Eye Exam Eye Exam: EOMI - ENT Exam ENT Exam: Mucous Membranes Dry - Respiratory Exam Respiratory Exam: Decreased Breath Sounds. absent: Respiratory Distress, Stridor - Cardiovascular Exam Cardiovascular Exam: REGULAR RHYTHM, +S1, +S2 - GI/Abdominal Exam GI & Abdominal Exam: Soft, Normal Bowel Sounds. absent: Distended, Firm, Guarding, Rigid, Rebound - Extremities Exam Extremities Exam: Normal Capillary Refill, Pedal Edema (non-pitting). absent: Tenderness - Neurological Exam Neurological Exam: Alert, Awake, Oriented x3 - Psychiatric Exam Psychiatric exam: Normal Affect, Normal Mood - Skin Skin Exam: Dry, Intact, Normal Color, Warm Assessment and Plan - Assessment and Plan (Free Text) Assessment: (1) Fluid Overload? Assessment and Plan: * ProBNP today: 47551 * Contributing factors: acute on chronic kidney disease and hx of diastolic congestive heart failure * Vascular Surgery: Dr. Ontiveros-->notified by emergency room; for emergent dialysis access * Nephrology: Dr Bill on board-->acute on chronic kidney insufficiency, hypercalcemia; emergent dialysis * Chest Xray (12/25/16): prominent diffuse increased interstital lung markings throughout both lungs suggestive for edema and/or infiltrate * pending post dialysis chest xray today this afternoon * Monitor intake output * Daily weights (2) Acute kidney injury superimposed on chronic kidney disease Assessment and Plan: * Nephrology Dr. Bill consulted-->help appreciated * Vascular Surgery: Dr. Ontiveros-->help appreciated * Surgery consulted; tunneled dialysis catheter placed 12/25; * Heme-Oncology: Dr Martinez-->help appreciated * Possible patient has light chain multiple myeloma * Recommended for SPEP, IPEP, free light chain lambda, free light chain kappa, 24 hr urine UPEP, urine IPEP, beta2 microglobulin, and LDH-->pending * Prior SPEP: (12/02/16): M Adarsh migrating in the gamma globulin region * BUN/Cr elevated today: 90/7.7 * 12/25 Urinanalysis: +leuk esterase, 2+ protein, + Wbc and + RBC * f/u urine culture-->pending * Ct Abdomen/Pelvis (12/25/16): No evidence of nephrolithiasis or hydronephrosis , 1,5 cm exophyitc high attentuation lesion at the mid to lower pole of right kidney. possibility of renal cell carcnioma should be excluded. 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 Airspace consolidation at left lobe associated with small pleural fussion suspicious for pneumonia Status: Acute (3) Possible Multiple Myeloma Assessment and Plan: * Criteria: anemia, renal insufficiency, hypercalcemia * Nephrology Dr. Bill consulted-->help appreciated * Vascular Surgery: Dr. Ontiveros-->help appreciated * Surgery consulted and will place permacath with plan for HD today * Heme-Oncology: Dr Martinez-->help appreciated * Possible patient has light chain multiple myeloma * Recommended for SPEP, IPEP, free light chain lambda, free light chain kappa, 24 hr urine UPEP, urine IPEP, beta2 microglobulin, and LDH-->pending * BUN/Cr elevated today: 90/7.7 * 12/25 Urinanalysis: +leuk esterase, 2+ protein, + Wbc and + RBC * f/u urine culture-->pending * Ct Abdomen/Pelvis (12/25/16): No evidence of nephrolithiasis or hydronephrosis , 1,5 cm exophyitc high attentuation lesion at the mid to lower pole of right kidney. possibility of renal cell carcnioma should be excluded. 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 Airspace consolidation at left lobe associated with small pleural fussion suspicious for pneumoni Status: Acute (4) Possible CHF exacerbation Assessment and Plan: * History of diastolic congestive heart failure * Cardiology (Dr. Litlte) on consult; covering for Dr. Lynch's patients * ProBNP today: 21028 * 06/28/16 Echo showed EF of 83% with borderline concentric LVH. Mild-moderate mitral regurgitation * 12/01 EKG: normal, NSR * monitor intake and output * Daily Weights Status: Acute (5) Anemia Assessment and Plan: * Heme-onc (Dr. Martinez) on board-->help appreciated * Discussed with PMD: Dr. Winkler-->patient has had workup including GI workup in 2017 in regards to anemia * Thought to be chronic secondary to kidney disease * Continue home meds Ferrous sulfate 325 mg daily * s/p 1 unit of PRBC on 12/25 7.2 * 12/25 stool occult blood: negative * Prior hospitalizations included in patient's chart; awaiting copy of report of GI workup Status: Chronic (6) Atrial fibrillation Assessment and Plan: * Cardiology (Dr. Little) covering for Dr. Lynch's patients * Continue home meds: Amiodarone 200 mg daily, Cardizem 240 mg daily * Patient is not on anticoagulation secondary to anemia * CHADS: 4 (DM, Age, HTN, CHF) * HASBLED:2 (Age and Renal Disease) Status: Acute (7) HTN (hypertension) Assessment and Plan: * Monitor vital signs * Restart Amiodarone 200mg PO daily and Cardizem 240mg PO daily Status: Chronic (8) Leukocytosis Assessment and Plan: * In the ED, order for dose of Zosyn and Vancomycin on 12/25 * Difficult to discern if patient has pneumonia given she is also appears fluid overload * Post dialysis chest xray 12/26 * Strep, legionella: negative and mycoplasma IgM: negative * Patient recently at the hospital within 90 days-->consideration for possible hospital acquired pneumonia * Patient does not meet sepsis critera (04/19: leukocytosis) * Start Zosyn 2.25 gr IV Q8H (active since 12/25/16) and Doxcycline 100mg IV Q 12hours (active since 12/25/16) * Discussed with ED nurse, blood and urine cultures were collected-->pending Status: Acute (9) History of asthma Assessment and Plan: * continue home meds: Pulmicort Flexhaler 90 mcg INH RQ12hr * f/u sputum culture-->pending Status: Chronic (10) History of Gastritis Assessment and Plan: * Pepcid 20mg PO daily Status: Chronic (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, managed as type 2 Assessment and Plan: * Continue home meds: Glipizide 10 mg daily * daily Accuchecks QAC and HS * Gpasldlxxsy1s Status: Chronic (10) Hypothyroidism Status: Chronic * Order TSH in AM-->pending Status: Chronic (11) Hepatitis Assessment and Plan: * RUQ pain will f/u Amylase, lipase which are normal * LFTs are normal Status: Chronic (12) History of back pain Assessment and Plan: * held Magnesium oxide 400 mg BID; Tramadol-Acetaminophen 32.5-325 mg 2 tablets Q6hr Status: Acute (13) Lower extremity pain Assessment and Plan: * Held Magnesium oxide 400 mg BID; Tramadol-Acetaminophen 32.5-325 mg 2 tablets Q6hr Status: Acute (14) Prophylactic measure Assessment and Plan: * DVT: SCD * GI: Omeprazole 20 mg daily * Chemical anticoagulation contraindicated secondary anemia * Monitor intake and output * Daily Weight Status: Acute
--- NOTE | 2016-12-26 15:29 | VASCLAB ---
PROCEDURE: Upper Extremity Venous Duplex Exam HISTORY: AVF for HD access PRIORS: None. TECHNIQUE: Bilateral upper extremity, internal jugular, subclavian, axillary, brachial, ulnar, radial, basilic and upper cephalic veins were evaluated. Flow was assessed with color Doppler, compressibility, assessment of phasic flow and augmentation response. Report prepared by SALVATORE Lobo, RVT FINDINGS: RIGHT: 1. Internal Jugular Vein: Compressibility - Fully compressible: Thrombus - None : Flow - Phasic 2. Subclavian Vein:Compressibility - Fully compressible: Thrombus - None : Flow - Phasic 3. Axillary Vein: Compressibility - Fully compressible: Thrombus - None 4. Brachial Vein: Compressibility - Fully compressible: Thrombus - None 5. Ulnar Vein:Compressibility - Fully compressible: Thrombus - None 6. Radial Vein:Compressibility - Fully compressible: Thrombus - None 7. Cephalic Vein: Compressibility - Fully compressible: thrombus - None 7.1. Upper Arm: Proximal Diameter: 0.41cm. Mid Diameter: 0.44cm. Distal Diameter: 0.43cm. Antecubital Fossa Diameter: 0.58cm. 7.2. Forearm: Proximal Diameter: 0.34cm. Mid Diameter:0.21cm. Distal Diameter: 0.55cm 8. Basilic Vein:Compressibility - Fully compressible: thrombus - None 8.1. Upper Arm:Proximal Diameter: 0.55cm. Mid Diameter: 0.34cm. Distal Diameter: 0.41cm. Antecubital Fossa Diameter: 0.43cm. 8.2. Forearm: Proximal Diameter: 0.20cm. LEFT: 1. Internal Jugular Vein: Compressibility - Fully compressible: Thrombus - None : Flow - Phasic 2. Subclavian Vein:Compressibility - Fully compressible: Thrombus - None : Flow - Phasic 3. Axillary Vein: Compressibility - Fully compressible: Thrombus - None 4. Brachial Vein: Compressibility - Fully compressible: Thrombus - None 5. Ulnar Vein:Compressibility - Fully compressible: Thrombus - None 6. Radial Vein:Compressibility - Fully compressible: Thrombus - None 7. Cephalic Vein: Compressibility - Fully compressible: thrombus - None 7.1. Upper Arm: Proximal Diameter: 0.50cm. Mid Diameter: 0.45cm. Distal Diameter: 0.45cm. Antecubital Fossa Diameter: 0.58cm. 7.2. Forearm: Proximal Diameter: 0.26cm. Mid Diameter:0.20cm. 8. Basilic Vein:Compressibility - Fully compressible: thrombus - None 8.1. Upper Arm:Proximal Diameter: 0.59cm. Mid Diameter: 0.47cm. Distal Diameter: 0.46cm. Antecubital Fossa Diameter: 0.40cm. 8.2. Forearm: Proximal Diameter: 0.29cm. OTHER FINDINGS: Right: None. Left: None. IMPRESSION: Right: Diameter measurements of the right cephalic vein is measured between 0.21 cm and 0.58 cm and basilic vein is measured between 0.20 cm and 0.55 cm. Left: Diameter measurements of the left cephalic vein is measured between 0.20 cm and 0.58 cm and basilic vein is measured between 0.29cm and 0.59cm.
--- NOTE | 2016-12-26 17:19 | RAD ---
HISTORY: Shortness of breath. Technique: Single view portable semi erect @ 16:09. COMPARISON: December 25, 2016. Study performed 18:13. FINDINGS: LUNGS: Stable multifocal and bilateral infiltrates. PLEURA: No significant pleural effusion identified, no pneumothorax apparent. CARDIOVASCULAR: No radiographic findings to suggest acute or significant cardiovascular disease. Venous access catheter in stable, satisfactory position. OSSEOUS STRUCTURES: No significant abnormalities. VISUALIZED UPPER ABDOMEN: Normal. OTHER FINDINGS: None. IMPRESSION: No significant interval change compared to the prior examination(s).
[2016-12-26] MEDS: (Novolin R) Insulin Human Regular 100 units/ml vial SC SCH ×2 (17:41→21:55)
[2016-12-27 04:20] LABS: TOTAL PROTEIN, SERUM 5.8 g/dL (6.1-8.1)
--- NOTE | 2016-12-27 05:17 | CP.PCM.PN ---
Subjective - Date & Time of Evaluation Date of Evaluation: 12/26/16 Time of Evaluation: 18:00 - Subjective Subjective: Patient seen and evaluated Says breathing better Denies chest pain Objective - Vital Signs/Intake and Output Vital Signs (last 24 hours): Temp Pulse Resp BP Pulse Ox 98.9 F 75 15 153/53 H 95 12/26/16 20:00 12/27/16 04:53 12/27/16 04:53 12/27/16 04:53 12/27/16 04:53 Intake and Output: 12/26/16 12/27/16 18:59 06:59 Intake Total 1994 100 Output Total 225 30 Balance 1770 70 - Medications Medications: Current Medications Famotidine (Pepcid) 20 mg PO DAILY [facility] Ferrous Sulfate (Feosol) 325 mg PO DAILY [facility] Last Admin: 12/26/16 09:49 Dose: 325 mg Glipizide (Glucotrol) 10 mg PO DAILY [facility] Piperacillin Sod/Tazobactam Sod (Zosyn 2.25 Gm Iv Premix) 2.25 gm in 50 mls @ 100 mls/hr IVPB Q8H [facility] Last Admin: 12/26/16 15:51 Dose: 100 mls/hr Doxycycline Hyclate 100 mg/ (Sodium Chloride) 100 mls @ 100 mls/hr IVPB Q12H [facility] Last Admin: 12/26/16 21:31 Dose: 100 mls/hr Insulin Human Regular (Novolin R) 0 unit SC ACHS [facility] PRN Reason: Protocol Last Admin: 12/26/16 17:41 Dose: 1 unit Levothyroxine Sodium (Synthroid) 75 mcg PO DAILY@0630 [facility] Last Admin: 12/26/16 07:08 Dose: 75 mcg Sevelamer Carbonate (Renvela) 0.8 gm PO TIDCC [facility] Last Admin: 12/26/16 17:42 Dose: 0.8 gm - Labs Labs: 12/26/16 08:05 12/26/16 08:05 PT 13.1 SECONDS (9.7-12.2) H 12/26/16 08:05 INR 1.2 12/26/16 08:05 APTT 39 SECONDS (21-34) H 12/26/16 08:05 - Head Exam Head Exam: ATRAUMATIC, NORMAL INSPECTION - Eye Exam Eye Exam: EOMI, PERRL Pupil Exam: NORMAL ACCOMODATION - ENT Exam ENT Exam: Mucous Membranes Moist - Neck Exam Neck Exam: Full ROM, Normal Inspection - Respiratory Exam Respiratory Exam: Clear to Ausculation Bilateral, NORMAL BREATHING PATTERN - Cardiovascular Exam Cardiovascular Exam: REGULAR RHYTHM, +S1, +S2 - GI/Abdominal Exam GI & Abdominal Exam: Soft, Normal Bowel Sounds - Extremities Exam Extremities Exam: Full ROM - Back Exam Back Exam: NORMAL INSPECTION - Neurological Exam Neurological Exam: Alert, Awake, Oriented x3 - Psychiatric Exam Psychiatric exam: Normal Mood - Skin Skin Exam: Warm Assessment and Plan - Assessment and Plan (Free Text) Assessment: (6) Atrial fibrillation Assessment and Plan: * Cardiology (Dr. Little) covering for Dr. Lynch's patients * Continue home meds: Amiodarone 200 mg daily, Cardizem 240 mg daily * Patient is not on anticoagulation secondary to anemia * CHADS: 4 (DM, Age, HTN, CHF) * HASBLED:2 (Age and Renal Disease) Status: Acute Not on AC due to low Hgb Check stool guiac Start Heparin IV once Hgb above 9 and guiac negative (2) Acute kidney injury superimposed on chronic kidney disease Assessment and Plan: * Nephrology Dr. Bill consulted-->help appreciated * Vascular Surgery: Dr. Ontiveros-->help appreciated * Surgery consulted; tunneled dialysis catheter placed 12/25; f * Heme-Oncology: Dr Martinez-->help appreciated * Possible patient has light chain multiple myeloma * Recommended for SPEP, IPEP, free light chain lambda, free light chain kappa, 24 hr urine UPEP, urine IPEP, beta2 microglobulin, and LDH-->pending * Prior SPEP: (12/02/16): M Adarsh migrating in the gamma globulin region * BUN/Cr elevated today: 90/7.7 * 12/25 Urinanalysis: +leuk esterase, 2+ protein, + Wbc and + RBC * f/u urine culture-->pending * Ct Abdomen/Pelvis (12/25/16): No evidence of nephrolithiasis or hydronephrosis , 1,5 cm exophyitc high attentuation lesion at the mid to lower pole of right kidney. possibility of renal cell carcnioma should be excluded. 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 Airspace consolidation at left lobe associated with small pleural fussion suspicious for pneumonia Status: Acute (3) Possible Multiple Myeloma Assessment and Plan: * Criteria: anemia, renal insufficiency, hypercalcemia * Nephrology Dr. Bill consulted-->help appreciated * Vascular Surgery: Dr. Ontiveros-->help appreciated * Surgery consulted and will place permacath with plan for HD today * Heme-Oncology: Dr Martinez-->help appreciated * Possible patient has light chain multiple myeloma * Recommended for SPEP, IPEP, free light chain lambda, free light chain kappa, 24 hr urine UPEP, urine IPEP, beta2 microglobulin, and LDH-->pending * BUN/Cr elevated today: 90/7.7 * 12/25 Urinanalysis: +leuk esterase, 2+ protein, + Wbc and + RBC * f/u urine culture-->pending * Ct Abdomen/Pelvis (12/25/16): No evidence of nephrolithiasis or hydronephrosis , 1,5 cm exophyitc high attentuation lesion at the mid to lower pole of right kidney. possibility of renal cell carcnioma should be excluded. 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 Airspace consolidation at left lobe associated with small pleural fussion suspicious for pneumoni Status: Acute (4) Diastolic CHF Assessment and Plan: * History of diastolic congestive heart failure * Cardiology (Dr. Little) on consult; covering for Dr. Lynch's patients * ProBNP today: [id number] * 06/28/16 Echo showed EF of 83% with borderline concentric LVH. Mild-moderate mitral regurgitation * 12/01 EKG: normal, NSR * monitor intake and output * Daily Weights Status: Acute Prior cath: Non obstructive (5) Anemia Assessment and Plan: * Heme-onc (Dr. Martinez) on board-->help appreciated * Discussed with PMD: Dr. Winkler-->patient has had workup including GI workup in 2017 in regards to anemia * Thought to be chronic secondary to kidney disease * Continue home meds Ferrous sulfate 325 mg daily * s/p 1 unit of PRBC on 12/25 7.2 * 12/25 stool occult blood: negative * Prior hospitalizations included in patient's chart; awaiting copy of report of GI workup Status: Chronic (6) HTN (hypertension) Assessment and Plan: * Monitor vital signs * Restart Amiodarone 200mg PO daily and Cardizem 240mg PO daily Status: Chronic (7) Leukocytosis Assessment and Plan: * In the ED, order for dose of Zosyn and Vancomycin on 12/25 * Difficult to discern if patient has pneumonia given she is also appears fluid overload * Post dialysis chest xray 12/26 * Strep, legionella: negative and mycoplasma IgM: negative * Patient recently at the hospital within 90 days-->consideration for possible hospital acquired pneumonia * Patient does not meet sepsis critera (04/19: leukocytosis) * Start Zosyn 2.25 gr IV Q8H (active since 12/25/16) and Doxcycline 100mg IV Q 12hours (active since 12/25/16) * Discussed with ED nurse, blood and urine cultures were collected-->pending Status: Acute (8) History of asthma Assessment and Plan: * continue home meds: Pulmicort Flexhaler 90 mcg INH RQ12hr * f/u sputum culture-->pending Status: Chronic (9) History of Gastritis Assessment and Plan: * Pepcid 20mg PO daily Status: Chronic (10) Diabetes 1.5, managed as type 2 Assessment and Plan: * Continue home meds: Glipizide 10 mg daily * daily Accuchecks QAC and HS * [id number] Status: Chronic (11) Hypothyroidism Status: Chronic * Order TSH in AM-->pending Status: Chronic (12) Hepatitis Assessment and Plan: * RUQ pain will f/u Amylase, lipase which are normal * LFTs are normal Status: Chronic (13) History of back pain Assessment and Plan: * held Magnesium oxide 400 mg BID; Tramadol-Acetaminophen 32.5-325 mg 2 tablets Q6hr Status: Acute (14) Lower extremity pain Assessment and Plan: * Held Magnesium oxide 400 mg BID; Tramadol-Acetaminophen 32.5-325 mg 2 tablets Q6hr Status: Acute (15) Prophylactic measure Assessment and Plan: * DVT: SCD * GI: Omeprazole 20 mg daily * Chemical anticoagulation contraindicated secondary anemia * Monitor intake and output * Daily Weight Status: Acute Critical care kalra 50 minutes
[2016-12-27] MEDS: Piperacill/Tazo 2.25gm in Dex 2.25 GM/50 ML BAG IVPB SCH ×3 (06:39→22:00)
[2016-12-27] MEDS: Levothyroxine 75 MCG TAB PO SCH (06:44)
[2016-12-27 06:47] LABS: BASO # 0.1 K/uL (0.0-0.2); BASO % 0.6 % (0.0-2.0); EOS # 0.1 K/uL (0.0-0.7); EOS % 0.9 % (0.0-4.0); HEMATOCRIT 25.2 % (34.0-47.0); LYMPH # 1.5 K/uL (1.0-4.3); LYMPH % 9.5 % (20.0-40.0); MEAN CELL VOLUME 96.4 fL (81.0-99.0); MEAN CORPUSCULAR HEMOGLOBIN 32.1 pg (27.0-31.0); MEAN CORPUSCULAR HGB CONC 33.3 g/dL (33.0-37.0); MEAN PLATELET VOLUME 7.8 fL (7.2-11.7); MONO # 0.7 K/uL (0.0-0.8); MONO % 4.1 % (0.0-10.0); NRBC % 0.1 % (0.0-2.0); PLATELET COUNT 236 K/uL (130-400); RED CELL DISTRIBUTION WIDTH 16.6 % (11.5-14.5); WHITE BLOOD COUNT 16.2 K/uL (4.8-10.8)
[2016-12-27 07:06] LABS: POTASSIUM 4.7 mmol/L (3.6-5.2)
[2016-12-27 07:09] LABS: ALB/GLOB RATIO 1.4 (1.0-2.1); BILIRUBIN,TOTAL 0.6 mg/dL (0.2-1.3); TOTAL PROTEIN 6.1 g/dL (6.3-8.3)
[2016-12-27 07:10] LABS: CALCIUM 12.6 mg/dl (8.6-10.4); MAGNESIUM 2.4 mg/dL (1.6-2.3); PHOSPHOROUS 6.7 mg/dL (2.5-4.5)
--- NOTE | 2016-12-27 07:40 | CP.CCUPN ---
<Sunny Bishop - Last Filed: 12/27/16 16:00> CCU Subjective - Physician Review Subjective (Free Text): Patient seen and examined at bedside. Patient breathing comfortably on nasal cannula with 100% sat. Patient alert, AAOx3, able to follow commands. Patient currently denies any pain or discomfort. Denies chest pain, abdominal pain, fever, palpitations, nausea, vomiting. 12/27/16 14:53 CCU Objective - Vital Signs / Intake & Output Vital Signs (Last 4 hours): Vital Signs Pulse Resp BP Pulse Ox 12/27/16 06:10 78 12/27/16 06:00 72 15 93 L 12/27/16 05:53 73 15 143/50 L 94 L 12/27/16 05:00 75 15 95 12/27/16 04:53 75 15 153/53 H 95 12/27/16 04:00 77 15 96 12/27/16 03:53 75 14 151/46 H 96 Intake and Output (Last 8hrs): Intake & Output 12/26/16 12/27/16 12/27/16 22:59 06:59 14:59 Intake Total 855 Output Total 120 Balance 735 Intake: Intake, IV Amount 150 Right Wrist 150 Oral 360 Blood Product 325 Red Blood Cells Cpd As1 325 Lr Unit [id number] Other 20 Red Blood Cells Cpd As1 20 Lr Unit [id number] Output: Urine 120 Urethral (Morgan) 120 - Physical Exam Head: Positive for: Atraumatic, Normocephalic Pupils: Positive for: PERRL Extroacular Muscles: Positive for: EOMI Mouth: Positive for: Moist Mucous Membranes Respiratory/Chest: Positive for: Clear to Auscultation Cardiovascular: Positive for: Regular Rate and Rhythm, Normal S1, S2 Abdomen: Positive for: Normal Bowel Sounds. Negative for: Tenderness, Distention Upper Extremity: Negative for: Edema Lower Extremity: Negative for: Edema Neurological: Positive for: CN II-XII Intact, Speech Normal Psychiatric: Positive for: Alert, Oriented x 3, Normal Insight - Medications Active Medications: Active Medications Generic Name Dose Route Start Last Admin Trade Name Freq PRN Reason Stop Dose Admin Famotidine 20 mg 12/27/16 10:00 Pepcid PO DAILY AMRIBETH Ferrous Sulfate 325 mg 12/26/16 10:00 12/26/16 09:49 Feosol PO 325 mg DAILY MARIBETH Administration Glipizide 10 mg 12/27/16 10:00 Glucotrol PO DAILY MARIBETH Heparin Sodium (Porcine) 5,000 units 12/27/16 06:00 12/27/16 06:51 Heparin SC 5,000 units Q8 MARIBETH Administration Piperacillin Sod/Tazobactam Sod 2.25 gm in 50 mls @ 100 mls/hr 12/25/16 23:00 12/27/16 06:39 Zosyn 2.25 Gm Iv Premix IVPB 100 mls/hr Q8H MARIBETH Administration Doxycycline Hyclate 100 mg/ 100 mls @ 100 mls/hr 12/25/16 21:00 12/26/16 21: 31 Sodium Chloride IVPB 100 mls/hr Q12H MARIBETH Administration Insulin Human Regular 0 unit 12/26/16 16:30 12/26/16 21:55 Novolin R SC Not Given ACHS [facility] Protocol Levothyroxine Sodium 75 mcg 12/26/16 06:30 12/27/16 06:44 Synthroid PO 75 mcg DAILY@0630 MARIBETH Administration Pantoprazole Sodium 40 mg 12/27/16 10:00 Protonix Ec Tab PO DAILY [facility] Sevelamer Carbonate 0.8 gm 12/26/16 12:00 12/26/16 17:42 Renvela PO 0.8 gm TIDCC MARIBETH Administration - Patient Studies Lab Studies: Microbiology Studies 12/25/16 15:45 Blood Culture - Preliminary Blood NO GROWTH AFTER 24 HOURS 12/25/16 16:10 Blood Culture - Preliminary Blood NO GROWTH AFTER 24 HOURS Lab Studies 12/27/16 12/27/16 12/26/16 Range/Units 06:43 06:43 21:38 WBC 16.2 H (4.8-10.8) K/uL RBC 2.61 L (3.80-5.20) Mil/uL Hgb 8.4 L (11.0-16.0) g/dL Hct 25.2 L (34.0-47.0) % MCV 96.4 (81.0-99.0) fL MCH 32.1 H (27.0-31.0) pg MCHC 33.3 (33.0-37.0) g/dL RDW 16.6 H (11.5-14.5) % Plt Count 236 (130-400) K/uL MPV 7.8 (7.2-11.7) fL Neut % (Auto) 84.9 H (50.0-75.0) % Lymph % (Auto) 9.5 L (20.0-40.0) % [place] % (Auto) 4.1 (0.0-10.0) % Eos % (Auto) 0.9 (0.0-4.0) % Baso % (Auto) 0.6 (0.0-2.0) % Neut # 13.8 H (1.8-7.0) K/uL Lymph # 1.5 (1.0-4.3) K/uL [place] # 0.7 (0.0-0.8) K/uL Eos # 0.1 (0.0-0.7) K/uL Baso # 0.1 (0.0-0.2) K/uL Neutrophils % (Manual) (50-75) % Band Neutrophils % (0-2) % Lymphocytes % (Manual) (20-40) % Monocytes % (Manual) (0-10) % Basophils % (Manual) (0-2) % Nucleated RBC % (0-0) % Platelet Estimate (NORMAL) Large Platelets Hypochromasia (manual) Poikilocytosis (manual Anisocytosis (manual) Microcytosis (manual) Macrocytosis (manual) Target Cells PT (9.7-12.2) SECONDS INR APTT (21-34) SECONDS Sodium 138 (132-148) mmol/L Potassium 4.7 (3.6-5.2) mmol/L Chloride 102 (98-107) mmol/L Carbon Dioxide 22 (22-30) mmol/L Anion Gap 18 (10-20) BUN 63 H (7-17) mg/dL Creatinine 5.8 H (0.7-1.2) MG/DL Est GFR ( Amer) 9 Est GFR (Non-Af Amer) 7 POC Glucose (mg/dL) 148 H (65-110) mg/dL Random Glucose 115 H (65-105) mg/dL Calcium 12.6 H (8.6-10.4) mg/dl Phosphorus 6.7 H (2.5-4.5) mg/dL Magnesium 2.4 H (1.6-2.3) mg/dL Total Bilirubin 0.6 (0.2-1.3) mg/dL AST 18 (14-36) U/L ALT 29 (9-52) U/L Alkaline Phosphatase 53 (38-126) U/L Total Protein 6.1 L (6.3-8.3) g/dL Total Protein (PEP) (6.1-8.1) g/dL Albumin 3.5 (3.5-5.0) g/dL Globulin 2.6 (2.2-3.9) gm/dL Albumin/Globulin Ratio 1.4 (1.0-2.1) 25-OH Vitamin D Total (30.0-100.0) NG/ML Urine Color (YELLOW) Urine Clarity (Clear) Urine pH (5.0-8.0) Ur Specific Range (1.003-1.030) Urine Protein (NEGATIVE) mg/dL Urine Glucose (UA) (Normal) mg/dL Urine Ketones (NEGATIVE) mg/dL Urine Blood (NEGATIVE) Urine Nitrate (NEGATIVE) Urine Bilirubin (NEGATIVE) Urine Urobilinogen (0.2-1.0) mg/dL Ur Leukocyte Esterase (Negative) Roman/uL Urine WBC (Auto) (0-5) /hpf Urine RBC (Auto) (0-3) /hpf Ur Squamous Epith Cells (0-5) /hpf Amorphous Sediment (<OCC) /ul Hyaline Casts (0-2) /lpf Hep Bs Antigen (NEGATIVE) Hep Bs Antibody (NEGATIVE) Hep B Core IgM Ab (NEGATIVE) Hepatitis C Antibody (NEGATIVE) 12/26/16 12/26/16 12/26/16 Range/Units 16:16 14:22 14:22 WBC (4.8-10.8) K/uL RBC (3.80-5.20) Mil/uL Hgb (11.0-16.0) g/dL Hct (34.0-47.0) % MCV (81.0-99.0) fL MCH (27.0-31.0) pg MCHC (33.0-37.0) g/dL RDW (11.5-14.5) % Plt Count (130-400) K/uL MPV (7.2-11.7) fL Neut % (Auto) (50.0-75.0) % Lymph % (Auto) (20.0-40.0) % [place] % (Auto) (0.0-10.0) % Eos % (Auto) (0.0-4.0) % Baso % (Auto) (0.0-2.0) % Neut # (1.8-7.0) K/uL Lymph # (1.0-4.3) K/uL [place] # (0.0-0.8) K/uL Eos # (0.0-0.7) K/uL Baso # (0.0-0.2) K/uL Neutrophils % (Manual) (50-75) % Band Neutrophils % (0-2) % Lymphocytes % (Manual) (20-40) % Monocytes % (Manual) (0-10) % Basophils % (Manual) (0-2) % Nucleated RBC % (0-0) % Platelet Estimate (NORMAL) Large Platelets Hypochromasia (manual) Poikilocytosis (manual Anisocytosis (manual) Microcytosis (manual) Macrocytosis (manual) Target Cells PT (9.7-12.2) SECONDS INR APTT (21-34) SECONDS Sodium (132-148) mmol/L Potassium (3.6-5.2) mmol/L Chloride (98-107) mmol/L Carbon Dioxide (22-30) mmol/L Anion Gap (10-20) BUN (7-17) mg/dL Creatinine (0.7-1.2) MG/DL Est GFR ( Amer) Est GFR (Non-Af Amer) POC Glucose (mg/dL) 151 H (65-110) mg/dL Random Glucose (65-105) mg/dL Calcium (8.6-10.4) mg/dl Phosphorus (2.5-4.5) mg/dL Magnesium (1.6-2.3) mg/dL Total Bilirubin (0.2-1.3) mg/dL AST (14-36) U/L ALT (9-52) U/L Alkaline Phosphatase (38-126) U/L Total Protein (6.3-8.3) g/dL Total Protein (PEP) (6.1-8.1) g/dL Albumin (3.5-5.0) g/dL Globulin (2.2-3.9) gm/dL Albumin/Globulin Ratio (1.0-2.1) 25-OH Vitamin D Total (30.0-100.0) NG/ML Urine Color (YELLOW) Urine Clarity (Clear) Urine pH (5.0-8.0) Ur Specific Range (1.003-1.030) Urine Protein (NEGATIVE) mg/dL Urine Glucose (UA) (Normal) mg/dL Urine Ketones (NEGATIVE) mg/dL Urine Blood (NEGATIVE) Urine Nitrate (NEGATIVE) Urine Bilirubin (NEGATIVE) Urine Urobilinogen (0.2-1.0) mg/dL Ur Leukocyte Esterase (Negative) Roman/uL Urine WBC (Auto) (0-5) /hpf Urine RBC (Auto) (0-3) /hpf Ur Squamous Epith Cells (0-5) /hpf Amorphous Sediment (<OCC) /ul Hyaline Casts (0-2) /lpf Hep Bs Antigen Negative (NEGATIVE) Hep Bs Antibody Negative (NEGATIVE) Hep B Core IgM Ab Negative (NEGATIVE) Hepatitis C Antibody Reactive (NEGATIVE) 12/26/16 12/26/16 12/26/16 Range/Units 13:56 11:33 08:05 WBC (4.8-10.8) K/uL RBC (3.80-5.20) Mil/uL Hgb (11.0-16.0) g/dL Hct (34.0-47.0) % MCV (81.0-99.0) fL MCH (27.0-31.0) pg MCHC (33.0-37.0) g/dL RDW (11.5-14.5) % Plt Count (130-400) K/uL MPV (7.2-11.7) fL Neut % (Auto) (50.0-75.0) % Lymph % (Auto) (20.0-40.0) % [place] % (Auto) (0.0-10.0) % Eos % (Auto) (0.0-4.0) % Baso % (Auto) (0.0-2.0) % Neut # (1.8-7.0) K/uL Lymph # (1.0-4.3) K/uL [place] # (0.0-0.8) K/uL Eos # (0.0-0.7) K/uL Baso # (0.0-0.2) K/uL Neutrophils % (Manual) (50-75) % Band Neutrophils % (0-2) % Lymphocytes % (Manual) (20-40) % Monocytes % (Manual) (0-10) % Basophils % (Manual) (0-2) % Nucleated RBC % (0-0) % Platelet Estimate (NORMAL) Large Platelets Hypochromasia (manual) Poikilocytosis (manual Anisocytosis (manual) Microcytosis (manual) Macrocytosis (manual) Target Cells PT 13.1 H (9.7-12.2) SECONDS INR 1.2 APTT 39 H (21-34) SECONDS Sodium (132-148) mmol/L Potassium (3.6-5.2) mmol/L Chloride (98-107) mmol/L Carbon Dioxide (22-30) mmol/L Anion Gap (10-20) BUN (7-17) mg/dL Creatinine (0.7-1.2) MG/DL Est GFR ( Amer) Est GFR (Non-Af Amer) POC Glucose (mg/dL) 197 H (65-110) mg/dL Random Glucose (65-105) mg/dL Calcium (8.6-10.4) mg/dl Phosphorus (2.5-4.5) mg/dL Magnesium (1.6-2.3) mg/dL Total Bilirubin (0.2-1.3) mg/dL AST (14-36) U/L ALT (9-52) U/L Alkaline Phosphatase (38-126) U/L Total Protein (6.3-8.3) g/dL Total Protein (PEP) (6.1-8.1) g/dL Albumin (3.5-5.0) g/dL Globulin (2.2-3.9) gm/dL Albumin/Globulin Ratio (1.0-2.1) 25-OH Vitamin D Total 66.6 (30.0-100.0) NG/ML Urine Color (YELLOW) Urine Clarity (Clear) Urine pH (5.0-8.0) Ur Specific Range (1.003-1.030) Urine Protein (NEGATIVE) mg/dL Urine Glucose (UA) (Normal) mg/dL Urine Ketones (NEGATIVE) mg/dL Urine Blood (NEGATIVE) Urine Nitrate (NEGATIVE) Urine Bilirubin (NEGATIVE) Urine Urobilinogen (0.2-1.0) mg/dL Ur Leukocyte Esterase (Negative) Roman/uL Urine WBC (Auto) (0-5) /hpf Urine RBC (Auto) (0-3) /hpf Ur Squamous Epith Cells (0-5) /hpf Amorphous Sediment (<OCC) /ul Hyaline Casts (0-2) /lpf Hep Bs Antigen (NEGATIVE) Hep Bs Antibody (NEGATIVE) Hep B Core IgM Ab (NEGATIVE) Hepatitis C Antibody (NEGATIVE) 12/26/16 12/26/16 12/26/16 Range/Units 08:05 08:05 07:34 WBC 13.4 H (4.8-10.8) K/uL RBC 2.22 L (3.80-5.20) Mil/uL Hgb 7.2 L (11.0-16.0) g/dL Hct 21.7 L (34.0-47.0) % MCV 97.7 (81.0-99.0) fL MCH 32.6 H (27.0-31.0) pg MCHC 33.4 (33.0-37.0) g/dL RDW 16.7 H (11.5-14.5) % Plt Count 256 (130-400) K/uL MPV 7.9 (7.2-11.7) fL Neut % (Auto) 85.6 H (50.0-75.0) % Lymph % (Auto) 8.5 L (20.0-40.0) % [place] % (Auto) 4.5 (0.0-10.0) % Eos % (Auto) 0.9 (0.0-4.0) % Baso % (Auto) 0.5 (0.0-2.0) % Neut # 11.4 H (1.8-7.0) K/uL Lymph # 1.1 (1.0-4.3) K/uL [place] # 0.6 (0.0-0.8) K/uL Eos # 0.1 (0.0-0.7) K/uL Baso # 0.1 (0.0-0.2) K/uL Neutrophils % (Manual) 85 H (50-75) % Band Neutrophils % 1 (0-2) % Lymphocytes % (Manual) 8 L (20-40) % Monocytes % (Manual) 5 (0-10) % Basophils % (Manual) 1 (0-2) % Nucleated RBC % 1 H (0-0) % Platelet Estimate Normal (NORMAL) Large Platelets Present Hypochromasia (manual) Moderate Poikilocytosis (manual Slight Anisocytosis (manual) Slight Microcytosis (manual) Slight Macrocytosis (manual) Slight Target Cells Slight PT (9.7-12.2) SECONDS INR APTT (21-34) SECONDS Sodium 139 (132-148) mmol/L Potassium 5.3 H (3.6-5.2) mmol/L Chloride 102 (98-107) mmol/L Carbon Dioxide 25 (22-30) mmol/L Anion Gap 17 (10-20) BUN 93 H (7-17) mg/dL Creatinine 7.8 H* (0.7-1.2) MG/DL Est GFR ( Amer) 6 Est GFR (Non-Af Amer) 5 POC Glucose (mg/dL) 155 H (65-110) mg/dL Random Glucose 119 H (65-105) mg/dL Calcium 12.8 H (8.6-10.4) mg/dl Phosphorus 8.2 H (2.5-4.5) mg/dL Magnesium 2.7 H (1.6-2.3) mg/dL Total Bilirubin 0.6 (0.2-1.3) mg/dL AST 18 (14-36) U/L ALT 23 (9-52) U/L Alkaline Phosphatase 56 (38-126) U/L Total Protein 6.4 (6.3-8.3) g/dL Total Protein (PEP) (6.1-8.1) g/dL Albumin 3.5 (3.5-5.0) g/dL Globulin 2.9 (2.2-3.9) gm/dL Albumin/Globulin Ratio 1.2 (1.0-2.1) 25-OH Vitamin D Total (30.0-100.0) NG/ML Urine Color (YELLOW) Urine Clarity (Clear) Urine pH (5.0-8.0) Ur Specific Range (1.003-1.030) Urine Protein (NEGATIVE) mg/dL Urine Glucose (UA) (Normal) mg/dL Urine Ketones (NEGATIVE) mg/dL Urine Blood (NEGATIVE) Urine Nitrate (NEGATIVE) Urine Bilirubin (NEGATIVE) Urine Urobilinogen (0.2-1.0) mg/dL Ur Leukocyte Esterase (Negative) Roman/uL Urine WBC (Auto) (0-5) /hpf Urine RBC (Auto) (0-3) /hpf Ur Squamous Epith Cells (0-5) /hpf Amorphous Sediment (<OCC) /ul Hyaline Casts (0-2) /lpf Hep Bs Antigen (NEGATIVE) Hep Bs Antibody (NEGATIVE) Hep B Core IgM Ab (NEGATIVE) Hepatitis C Antibody (NEGATIVE) 12/25/16 12/25/16 Range/Units 21:39 16:14 WBC (4.8-10.8) K/uL RBC (3.80-5.20) Mil/uL Hgb (11.0-16.0) g/dL Hct (34.0-47.0) % MCV (81.0-99.0) fL MCH (27.0-31.0) pg MCHC (33.0-37.0) g/dL RDW (11.5-14.5) % Plt Count (130-400) K/uL MPV (7.2-11.7) fL Neut % (Auto) (50.0-75.0) % Lymph % (Auto) (20.0-40.0) % [place] % (Auto) (0.0-10.0) % Eos % (Auto) (0.0-4.0) % Baso % (Auto) (0.0-2.0) % Neut # (1.8-7.0) K/uL Lymph # (1.0-4.3) K/uL [place] # (0.0-0.8) K/uL Eos # (0.0-0.7) K/uL Baso # (0.0-0.2) K/uL Neutrophils % (Manual) (50-75) % Band Neutrophils % (0-2) % Lymphocytes % (Manual) (20-40) % Monocytes % (Manual) (0-10) % Basophils % (Manual) (0-2) % Nucleated RBC % (0-0) % Platelet Estimate (NORMAL) Large Platelets Hypochromasia (manual) Poikilocytosis (manual Anisocytosis (manual) Microcytosis (manual) Macrocytosis (manual) Target Cells PT (9.7-12.2) SECONDS INR APTT (21-34) SECONDS Sodium (132-148) mmol/L Potassium (3.6-5.2) mmol/L Chloride (98-107) mmol/L Carbon Dioxide (22-30) mmol/L Anion Gap (10-20) BUN (7-17) mg/dL Creatinine (0.7-1.2) MG/DL Est GFR ( Amer) Est GFR (Non-Af Amer) POC Glucose (mg/dL) (65-110) mg/dL Random Glucose (65-105) mg/dL Calcium (8.6-10.4) mg/dl Phosphorus (2.5-4.5) mg/dL Magnesium (1.6-2.3) mg/dL Total Bilirubin (0.2-1.3) mg/dL AST (14-36) U/L ALT (9-52) U/L Alkaline Phosphatase (38-126) U/L Total Protein (6.3-8.3) g/dL Total Protein (PEP) 5.8 L (6.1-8.1) g/dL Albumin (3.5-5.0) g/dL Globulin (2.2-3.9) gm/dL Albumin/Globulin Ratio (1.0-2.1) 25-OH Vitamin D Total (30.0-100.0) NG/ML Urine Color Yellow (YELLOW) Urine Clarity Turbid (Clear) Urine pH 5.0 (5.0-8.0) Ur Specific Range 1.010 (1.003-1.030) Urine Protein 1+ H (NEGATIVE) mg/dL Urine Glucose (UA) Normal (Normal) mg/dL Urine Ketones Negative (NEGATIVE) mg/dL Urine Blood 1+ H (NEGATIVE) Urine Nitrate Negative (NEGATIVE) Urine Bilirubin Negative (NEGATIVE) Urine Urobilinogen Normal (0.2-1.0) mg/dL Ur Leukocyte Esterase 3+ H (Negative) Roman/uL Urine WBC (Auto) 157 H (0-5) /hpf Urine RBC (Auto) 13 H (0-3) /hpf Ur Squamous Epith Cells 4 (0-5) /hpf Amorphous Sediment Rare H (<OCC) /ul Hyaline Casts 3-5 H (0-2) /lpf Hep Bs Antigen (NEGATIVE) Hep Bs Antibody (NEGATIVE) Hep B Core IgM Ab (NEGATIVE) Hepatitis C Antibody (NEGATIVE) Laboratory Results - last 24 hr 12/25/16 12/25/16 12/26/16 16:14 21:39 07:34 WBC RBC Hgb Hct MCV MCH MCHC RDW Plt Count MPV Neut % (Auto) Lymph % (Auto) [place] % (Auto) Eos % (Auto) Baso % (Auto) Neut # Lymph # [place] # Eos # Baso # Neutrophils % (Manual) Band Neutrophils % Lymphocytes % (Manual) Monocytes % (Manual) Basophils % (Manual) Nucleated RBC % Platelet Estimate Large Platelets Hypochromasia (manual) Poikilocytosis (manual Anisocytosis (manual) Microcytosis (manual) Macrocytosis (manual) Target Cells PT INR APTT Sodium Potassium Chloride Carbon Dioxide Anion Gap BUN Creatinine Est GFR ( Amer) Est GFR (Non-Af Amer) POC Glucose (mg/dL) 155 H Random Glucose Calcium Phosphorus Magnesium Total Bilirubin AST ALT Alkaline Phosphatase Total Protein Total Protein (PEP) 5.8 L Albumin Globulin Albumin/Globulin Ratio 25-OH Vitamin D Total Urine Color Yellow Urine Clarity Turbid Urine pH 5.0 Ur Specific Range 1.010 Urine Protein 1+ H Urine Glucose (UA) Normal Urine Ketones Negative Urine Blood 1+ H Urine Nitrate Negative Urine Bilirubin Negative Urine Urobilinogen Normal Ur Leukocyte Esterase 3+ H Urine WBC (Auto) 157 H Urine RBC (Auto) 13 H Ur Squamous Epith Cells 4 Amorphous Sediment Rare H Hyaline Casts 3-5 H Hep Bs Antigen Hep Bs Antibody Hep B Core IgM Ab Hepatitis C Antibody 12/26/16 12/26/16 12/26/16 08:05 08:05 08:05 WBC 13.4 H RBC 2.22 L Hgb 7.2 L Hct 21.7 L MCV 97.7 MCH 32.6 H MCHC 33.4 RDW 16.7 H Plt Count 256 MPV 7.9 Neut % (Auto) 85.6 H Lymph % (Auto) 8.5 L [place] % (Auto) 4.5 Eos % (Auto) 0.9 Baso % (Auto) 0.5 Neut # 11.4 H Lymph # 1.1 [place] # 0.6 Eos # 0.1 Baso # 0.1 Neutrophils % (Manual) 85 H Band Neutrophils % 1 Lymphocytes % (Manual) 8 L Monocytes % (Manual) 5 Basophils % (Manual) 1 Nucleated RBC % 1 H Platelet Estimate Normal Large Platelets Present Hypochromasia (manual) Moderate Poikilocytosis (manual Slight Anisocytosis (manual) Slight Microcytosis (manual) Slight Macrocytosis (manual) Slight Target Cells Slight PT 13.1 H INR 1.2 APTT 39 H Sodium 139 Potassium 5.3 H Chloride 102 Carbon Dioxide 25 Anion Gap 17 BUN 93 H Creatinine 7.8 H* Est GFR ( Amer) 6 Est GFR (Non-Af Amer) 5 POC Glucose (mg/dL) Random Glucose 119 H Calcium 12.8 H Phosphorus 8.2 H Magnesium 2.7 H Total Bilirubin 0.6 AST 18 ALT 23 Alkaline Phosphatase 56 Total Protein 6.4 Total Protein (PEP) Albumin 3.5 Globulin 2.9 Albumin/Globulin Ratio 1.2 25-OH Vitamin D Total Urine Color Urine Clarity Urine pH Ur Specific Range Urine Protein Urine Glucose (UA) Urine Ketones Urine Blood Urine Nitrate Urine Bilirubin Urine Urobilinogen Ur Leukocyte Esterase Urine WBC (Auto) Urine RBC (Auto) Ur Squamous Epith Cells Amorphous Sediment Hyaline Casts Hep Bs Antigen Hep Bs Antibody Hep B Core IgM Ab Hepatitis C Antibody 12/26/16 12/26/16 12/26/16 11:33 13:56 14:22 WBC RBC Hgb Hct MCV MCH MCHC RDW Plt Count MPV Neut % (Auto) Lymph % (Auto) [place] % (Auto) Eos % (Auto) Baso % (Auto) Neut # Lymph # [place] # Eos # Baso # Neutrophils % (Manual) Band Neutrophils % Lymphocytes % (Manual) Monocytes % (Manual) Basophils % (Manual) Nucleated RBC % Platelet Estimate Large Platelets Hypochromasia (manual) Poikilocytosis (manual Anisocytosis (manual) Microcytosis (manual) Macrocytosis (manual) Target Cells PT INR APTT Sodium Potassium Chloride Carbon Dioxide Anion Gap BUN Creatinine Est GFR ( Amer) Est GFR (Non-Af Amer) POC Glucose (mg/dL) 197 H Random Glucose Calcium Phosphorus Magnesium Total Bilirubin AST ALT Alkaline Phosphatase Total Protein Total Protein (PEP) Albumin Globulin Albumin/Globulin Ratio 25-OH Vitamin D Total 66.6 Urine Color Urine Clarity Urine pH Ur Specific Range Urine Protein Urine Glucose (UA) Urine Ketones Urine Blood Urine Nitrate Urine Bilirubin Urine Urobilinogen Ur Leukocyte Esterase Urine WBC (Auto) Urine RBC (Auto) Ur Squamous Epith Cells Amorphous Sediment Hyaline Casts Hep Bs Antigen Negative Hep Bs Antibody Hep B Core IgM Ab Negative Hepatitis C Antibody Reactive 12/26/16 12/26/16 12/26/16 14:22 16:16 21:38 WBC RBC Hgb Hct MCV MCH MCHC RDW Plt Count MPV Neut % (Auto) Lymph % (Auto) [place] % (Auto) Eos % (Auto) Baso % (Auto) Neut # Lymph # [place] # Eos # Baso # Neutrophils % (Manual) Band Neutrophils % Lymphocytes % (Manual) Monocytes % (Manual) Basophils % (Manual) Nucleated RBC % Platelet Estimate Large Platelets Hypochromasia (manual) Poikilocytosis (manual Anisocytosis (manual) Microcytosis (manual) Macrocytosis (manual) Target Cells PT INR APTT Sodium Potassium Chloride Carbon Dioxide Anion Gap BUN Creatinine Est GFR ( Amer) Est GFR (Non-Af Amer) POC Glucose (mg/dL) 151 H 148 H Random Glucose Calcium Phosphorus Magnesium Total Bilirubin AST ALT Alkaline Phosphatase Total Protein Total Protein (PEP) Albumin Globulin Albumin/Globulin Ratio 25-OH Vitamin D Total Urine Color Urine Clarity Urine pH Ur Specific Range Urine Protein Urine Glucose (UA) Urine Ketones Urine Blood Urine Nitrate Urine Bilirubin Urine Urobilinogen Ur Leukocyte Esterase Urine WBC (Auto) Urine RBC (Auto) Ur Squamous Epith Cells Amorphous Sediment Hyaline Casts Hep Bs Antigen Hep Bs Antibody Negative Hep B Core IgM Ab Hepatitis C Antibody 12/27/16 12/27/16 06:43 06:43 WBC 16.2 H RBC 2.61 L Hgb 8.4 L Hct 25.2 L MCV 96.4 MCH 32.1 H MCHC 33.3 RDW 16.6 H Plt Count 236 MPV 7.8 Neut % (Auto) 84.9 H Lymph % (Auto) 9.5 L [place] % (Auto) 4.1 Eos % (Auto) 0.9 Baso % (Auto) 0.6 Neut # 13.8 H Lymph # 1.5 [place] # 0.7 Eos # 0.1 Baso # 0.1 Neutrophils % (Manual) Band Neutrophils % Lymphocytes % (Manual) Monocytes % (Manual) Basophils % (Manual) Nucleated RBC % Platelet Estimate Large Platelets Hypochromasia (manual) Poikilocytosis (manual Anisocytosis (manual) Microcytosis (manual) Macrocytosis (manual) Target Cells PT INR APTT Sodium 138 Potassium 4.7 Chloride 102 Carbon Dioxide 22 Anion Gap 18 BUN 63 H Creatinine 5.8 H Est GFR ( Amer) 9 Est GFR (Non-Af Amer) 7 POC Glucose (mg/dL) Random Glucose 115 H Calcium 12.6 H Phosphorus 6.7 H Magnesium 2.4 H Total Bilirubin 0.6 AST 18 ALT 29 Alkaline Phosphatase 53 Total Protein 6.1 L Total Protein (PEP) Albumin 3.5 Globulin 2.6 Albumin/Globulin Ratio 1.4 25-OH Vitamin D Total Urine Color Urine Clarity Urine pH Ur Specific Range Urine Protein Urine Glucose (UA) Urine Ketones Urine Blood Urine Nitrate Urine Bilirubin Urine Urobilinogen Ur Leukocyte Esterase Urine WBC (Auto) Urine RBC (Auto) Ur Squamous Epith Cells Amorphous Sediment Hyaline Casts Hep Bs Antigen Hep Bs Antibody Hep B Core IgM Ab Hepatitis C Antibody Fingerstick Blood Sugar Results: 148 Review of Systems - Constitutional Constitutional: absent: Fever, Chills, Sweats - Cardiovascular Cardiovascular: absent: UNREMARKABLE - Respiratory Respiratory: absent: UNREMARKABLE - Gastrointestinal Gastrointestinal: absent: UNREMARKABLE - Genitourinary Genitourinary: absent: UNREMARKABLE - Neurological Neurological: absent: UNREMARKABLE Critical Care Progress Note - Nutrition Nutrition: Nutrition Category Date Time Status Renal Diet [DIET] Diets 12/25/16 Dinner Active Assessment/Plan (1) CHF exacerbation Current Visit: No Status: Acute (2) Acute kidney injury superimposed on chronic kidney disease Current Visit: No Status: Acute (3) Anemia Current Visit: No Status: Chronic (4) Atrial fibrillation with controlled ventricular response Current Visit: No Status: Acute (5) HTN (hypertension) Current Visit: No Status: Chronic (6) Leucocytosis Current Visit: No Status: Acute (7) History of asthma Current Visit: Yes Status: Acute (8) Gastritis Current Visit: No Status: Acute (9) Diabetes 1.5, 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: Chronic (10) Hypothyroidism Current Visit: No Status: Chronic (11) Hepatitis Current Visit: Yes Status: Acute (12) History of back pain Current Visit: Yes Status: Acute (13) Lower extremity pain Current Visit: Yes Status: Acute (14) Prophylactic measure Current Visit: No Status: Acute - Assessment and Plan (Free Text) Assessment: 81 year old female with PMHx of CHF, A-Fib, HTN, Anemia, DM, hypothyroidism, Gastritis, Hepatitis C (treated) presenting with SOB, shoulder pain since this morning and Acute Renal Failure Today: 12/27/16: HD today. On 100% non-rebreather. Echo ordered. Cardio: CHF, A-Fib, HTN; hx of cardiac cath w/ normal findings 03/2015 - 06/28/16 Echo showed EF of 83% with borderline concentric LVH. Mild-moderate mitral regurgitation - 12/01 EKG: normal, NSR - ProBNP today: [id number] - f/u new Echo - Cardiology, Dr Little, consulted - - Continue home med Amiodarone 200 mg daily - Continue home med Cardizem 240 mg daily Nephro: Acute Renal Failure - BUN/Cr elevated today: 93/7.8 - s/p permacath placement (12/25) with plan for HD today - Nephrology Dr. Bill consulted - 12/25 Urinalysis: +leuk esterase, 2+ protein, + Wbc and + RBC - f/u urine culture - f/u SPEP, IPEP, free light chain lambda, free light chain kappa, 24 hr urine UPEP, urine IPEP - Previous SPEP (09/27 and 12/02): M-spike in gamma globulin region ID: Elevated WBCs; - procalcitonin wnl; afebrile - Doxycycline 100mg iv q12 - ur cx negative, blood cx negative, legionella urine Ag negative, mycoplasma pneumoniae IgM negative Heme: Anemia - s/p transfusion of 1u pRBC - monitor CBC daily - Continue home meds Ferrous sulfate 325 mg daily - 12/25 CT abdomen & pelvis: 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 - records from [facility] [place] Hgb 12.7 in 03/2015 - Consult hematology Oncology, Dr. Martinez Pulm: h/o asthma - continue home meds: Pulmicort Flexhaler 90 mcg INH RQ12hr - f/u sputum culture Endo: DM, hypothyroidism - Continue home meds: Glipizide 10 mg daily; Levothyroxine 75 mcg daily - Start low ISS protocol - daily Accuchecks [facility] GI: Gastritis, Hepatitis C (treated) - Continue home meds Omeprazole 20 mg daily - RUQ pain -> Amylase wnl, lipase wnl - 12/22 stool occult blood: negative Msk: generalized LE pain, h/o back pain - Continue home meds: Magnesium oxide 400 mg BID; Tramadol-Acetaminophen 32.5- 325 mg 2 tablets Q6hr - Lidoderm patch 5% daily prn Prophylaxis: DVT: SCD GI: Omeprazole 20 mg daily <Pepe Kessler - Last Filed: 12/27/16 16:03> CCU Objective - Vital Signs / Intake & Output Vital Signs (Last 4 hours): Vital Signs Temp Pulse Pulse Resp BP BP Pulse Ox 12/27/16 15:45 151/56 H 12/27/16 15:30 158/64 H 12/27/16 15:15 179/62 H 12/27/16 15:00 164/58 H 12/27/16 14:45 98.3 F 85 20 146/58 L 90 L 12/27/16 14:40 98.3 F 85 20 159/58 H Intake and Output (Last 8hrs): Intake & Output 12/27/16 12/27/16 12/27/16 06:59 14:59 22:59 Intake Total 50 390 50 Output Total 10 45 10 Balance 40 345 40 Intake: Intake, IV Amount 50 100 50 Right Wrist 50 100 50 Oral 0 290 Output: Urine 10 45 10 Urethral (Morgan) 10 45 10 - Medications Active Medications: Active Medications Generic Name Dose Route Start Last Admin Trade Name Freq PRN Reason Stop Dose Admin Famotidine 20 mg 12/27/16 10:00 12/27/16 09:30 Pepcid PO 20 mg DAILY MARIBETH Administration Ferrous Sulfate 325 mg 12/26/16 10:00 12/27/16 09:31 Feosol PO 325 mg DAILY MARIBETH Administration Glipizide 10 mg 12/27/16 10:00 12/27/16 09:31 Glucotrol PO 10 mg DAILY MARIBETH Administration Heparin Sodium (Porcine) 5,000 units 12/27/16 06:00 12/27/16 15:58 Heparin SC 5,000 units Q8 MARIBETH Administration Piperacillin Sod/Tazobactam Sod 2.25 gm in 50 mls @ 100 mls/hr 12/25/16 23:00 12/27/16 13:59 Zosyn 2.25 Gm Iv Premix IVPB 100 mls/hr Q8H MARIBETH Administration Doxycycline Hyclate 100 mg/ 100 mls @ 100 mls/hr 12/25/16 21:00 12/27/16 08: 30 Sodium Chloride IVPB 100 mls/hr Q12H MARIBETH Administration Pamidronate Disodium 30 mg/ 510 mls @ 250 mls/hr 12/27/16 15:00 Sodium Chloride IV 12/27/16 17:02 ONCE ONE Insulin Human Regular 0 unit 12/26/16 16:30 12/27/16 11:50 Novolin R SC Not Given [facility] Protocol Levothyroxine Sodium 75 mcg 12/26/16 06:30 12/27/16 06:44 Synthroid PO 75 mcg DAILY@0630 [facility] Administration Sevelamer Carbonate 0.8 gm 12/26/16 12:00 12/27/16 13:35 Renvela PO 0.8 gm TIDCC MARIBETH Administration - Patient Studies Lab Studies: Microbiology Studies 12/25/16 Unknown Urine Culture - Final Urine No Growth (<1,000 CFU/ML) 12/25/16 15:45 Blood Culture - Preliminary Blood NO GROWTH AFTER 24 HOURS 12/25/16 16:10 Blood Culture - Preliminary Blood NO GROWTH AFTER 24 HOURS Lab Studies 12/27/16 12/27/16 12/27/16 Range/Units 11:38 09:16 07:41 WBC (4.8-10.8) K/uL RBC (3.80-5.20) Mil/uL Hgb (11.0-16.0) g/dL Hct (34.0-47.0) % MCV (81.0-99.0) fL MCH (27.0-31.0) pg MCHC (33.0-37.0) g/dL RDW (11.5-14.5) % Plt Count (130-400) K/uL MPV (7.2-11.7) fL Neut % (Auto) (50.0-75.0) % Lymph % (Auto) (20.0-40.0) % [place] % (Auto) (0.0-10.0) % Eos % (Auto) (0.0-4.0) % Baso % (Auto) (0.0-2.0) % Neut # (1.8-7.0) K/uL Lymph # (1.0-4.3) K/uL [place] # (0.0-0.8) K/uL Eos # (0.0-0.7) K/uL Baso # (0.0-0.2) K/uL Neutrophils % (Manual) (50-75) % Band Neutrophils % (0-2) % Lymphocytes % (Manual) (20-40) % Monocytes % (Manual) (0-10) % Eosinophils % (Manual) (0-4) % Nucleated RBC % (0-0) % Platelet Estimate (NORMAL) Polychromasia Hypochromasia (manual) Poikilocytosis (manual Anisocytosis (manual) Microcytosis (manual) Macrocytosis (manual) Ovalocytes Sodium (132-148) mmol/L Potassium (3.6-5.2) mmol/L Chloride (98-107) mmol/L Carbon Dioxide (22-30) mmol/L Anion Gap (10-20) BUN (7-17) mg/dL Creatinine (0.7-1.2) MG/DL Est GFR ( Amer) Est GFR (Non-Af Amer) POC Glucose (mg/dL) 148 H 153 H (65-110) mg/dL Random Glucose (65-105) mg/dL Hemoglobin A1c (4.2-6.5) % Calcium (8.6-10.4) mg/dl Phosphorus (2.5-4.5) mg/dL Magnesium (1.6-2.3) mg/dL Ferritin ng/mL Total Bilirubin (0.2-1.3) mg/dL AST (14-36) U/L ALT (9-52) U/L Alkaline Phosphatase (38-126) U/L Total Protein (6.3-8.3) g/dL Total Protein (PEP) (6.1-8.1) g/dL Albumin (3.5-5.0) g/dL Globulin (2.2-3.9) gm/dL Albumin/Globulin Ratio (1.0-2.1) Dqgx-2-Cjeadxaeicdcx (<or= 2.51) mg/L Angiotensin Convert Enz (9-67) U/L Procalcitonin 0.22 (0.19-0.49) NG/ML PTH Intact Whole Molec (14-64) pg/mL Hep Bs Antigen (NEGATIVE) Hep Bs Antibody (NEGATIVE) Hep B Core IgM Ab (NEGATIVE) Hepatitis C Antibody (NEGATIVE) HIV 1&2 Antibody Screen (NEGATIVE) 12/27/16 12/27/16 12/27/16 Range/Units 06:43 06:43 06:43 WBC 16.2 H (4.8-10.8) K/uL RBC 2.61 L (3.80-5.20) Mil/uL Hgb 8.4 L (11.0-16.0) g/dL Hct 25.2 L (34.0-47.0) % MCV 96.4 (81.0-99.0) fL MCH 32.1 H (27.0-31.0) pg MCHC 33.3 (33.0-37.0) g/dL RDW 16.6 H (11.5-14.5) % Plt Count 236 (130-400) K/uL MPV 7.8 (7.2-11.7) fL Neut % (Auto) 84.9 H (50.0-75.0) % Lymph % (Auto) 9.5 L (20.0-40.0) % [place] % (Auto) 4.1 (0.0-10.0) % Eos % (Auto) 0.9 (0.0-4.0) % Baso % (Auto) 0.6 (0.0-2.0) % Neut # 13.8 H (1.8-7.0) K/uL Lymph # 1.5 (1.0-4.3) K/uL [place] # 0.7 (0.0-0.8) K/uL Eos # 0.1 (0.0-0.7) K/uL Baso # 0.1 (0.0-0.2) K/uL Neutrophils % (Manual) 85 H (50-75) % Band Neutrophils % 1 (0-2) % Lymphocytes % (Manual) 8 L (20-40) % Monocytes % (Manual) 4 (0-10) % Eosinophils % (Manual) 2 (0-4) % Nucleated RBC % 1 H (0-0) % Platelet Estimate Normal (NORMAL) Polychromasia Slight Hypochromasia (manual) Slight Poikilocytosis (manual Slight Anisocytosis (manual) Slight Microcytosis (manual) Slight Macrocytosis (manual) Slight Ovalocytes Slight Sodium 138 (132-148) mmol/L Potassium 4.7 (3.6-5.2) mmol/L Chloride 102 (98-107) mmol/L Carbon Dioxide 22 (22-30) mmol/L Anion Gap 18 (10-20) BUN 63 H (7-17) mg/dL Creatinine 5.8 H (0.7-1.2) MG/DL Est GFR ( Amer) 9 Est GFR (Non-Af Amer) 7 POC Glucose (mg/dL) (65-110) mg/dL Random Glucose 115 H (65-105) mg/dL Hemoglobin A1c (4.2-6.5) % Calcium 12.6 H (8.6-10.4) mg/dl Phosphorus 6.7 H (2.5-4.5) mg/dL Magnesium 2.4 H (1.6-2.3) mg/dL Ferritin 685.0 ng/mL Total Bilirubin 0.6 (0.2-1.3) mg/dL AST 18 (14-36) U/L ALT 29 (9-52) U/L Alkaline Phosphatase 53 (38-126) U/L Total Protein 6.1 L (6.3-8.3) g/dL Total Protein (PEP) (6.1-8.1) g/dL Albumin 3.5 (3.5-5.0) g/dL Globulin 2.6 (2.2-3.9) gm/dL Albumin/Globulin Ratio 1.4 (1.0-2.1) Psft-6-Xjhzbxmkzonpe (<or= 2.51) mg/L Angiotensin Convert Enz (9-67) U/L Procalcitonin (0.19-0.49) NG/ML PTH Intact Whole Molec (14-64) pg/mL Hep Bs Antigen (NEGATIVE) Hep Bs Antibody (NEGATIVE) Hep B Core IgM Ab (NEGATIVE) Hepatitis C Antibody (NEGATIVE) HIV 1&2 Antibody Screen Negative (NEGATIVE) 12/27/16 12/26/16 12/26/16 Range/Units 06:43 21:38 16:16 WBC (4.8-10.8) K/uL RBC (3.80-5.20) Mil/uL Hgb (11.0-16.0) g/dL Hct (34.0-47.0) % MCV (81.0-99.0) fL MCH (27.0-31.0) pg MCHC (33.0-37.0) g/dL RDW (11.5-14.5) % Plt Count (130-400) K/uL MPV (7.2-11.7) fL Neut % (Auto) (50.0-75.0) % Lymph % (Auto) (20.0-40.0) % [place] % (Auto) (0.0-10.0) % Eos % (Auto) (0.0-4.0) % Baso % (Auto) (0.0-2.0) % Neut # (1.8-7.0) K/uL Lymph # (1.0-4.3) K/uL [place] # (0.0-0.8) K/uL Eos # (0.0-0.7) K/uL Baso # (0.0-0.2) K/uL Neutrophils % (Manual) (50-75) % Band Neutrophils % (0-2) % Lymphocytes % (Manual) (20-40) % Monocytes % (Manual) (0-10) % Eosinophils % (Manual) (0-4) % Nucleated RBC % (0-0) % Platelet Estimate (NORMAL) Polychromasia Hypochromasia (manual) Poikilocytosis (manual Anisocytosis (manual) Microcytosis (manual) Macrocytosis (manual) Ovalocytes Sodium (132-148) mmol/L Potassium (3.6-5.2) mmol/L Chloride (98-107) mmol/L Carbon Dioxide (22-30) mmol/L Anion Gap (10-20) BUN (7-17) mg/dL Creatinine (0.7-1.2) MG/DL Est GFR ( Amer) Est GFR (Non-Af Amer) POC Glucose (mg/dL) 148 H 151 H (65-110) mg/dL Random Glucose (65-105) mg/dL Hemoglobin A1c 6.1 (4.2-6.5) % Calcium (8.6-10.4) mg/dl Phosphorus (2.5-4.5) mg/dL Magnesium (1.6-2.3) mg/dL Ferritin ng/mL Total Bilirubin (0.2-1.3) mg/dL AST (14-36) U/L ALT (9-52) U/L Alkaline Phosphatase (38-126) U/L Total Protein (6.3-8.3) g/dL Total Protein (PEP) (6.1-8.1) g/dL Albumin (3.5-5.0) g/dL Globulin (2.2-3.9) gm/dL Albumin/Globulin Ratio (1.0-2.1) Kxwe-9-Pzavvldjisjmn (<or= 2.51) mg/L Angiotensin Convert Enz (9-67) U/L Procalcitonin (0.19-0.49) NG/ML PTH Intact Whole Molec (14-64) pg/mL Hep Bs Antigen (NEGATIVE) Hep Bs Antibody (NEGATIVE) Hep B Core IgM Ab (NEGATIVE) Hepatitis C Antibody (NEGATIVE) HIV 1&2 Antibody Screen (NEGATIVE) 12/26/16 12/26/16 12/26/16 Range/Units 14:22 14:22 13:56 WBC (4.8-10.8) K/uL RBC (3.80-5.20) Mil/uL Hgb (11.0-16.0) g/dL Hct (34.0-47.0) % MCV (81.0-99.0) fL MCH (27.0-31.0) pg MCHC (33.0-37.0) g/dL RDW (11.5-14.5) % Plt Count (130-400) K/uL MPV (7.2-11.7) fL Neut % (Auto) (50.0-75.0) % Lymph % (Auto) (20.0-40.0) % [place] % (Auto) (0.0-10.0) % Eos % (Auto) (0.0-4.0) % Baso % (Auto) (0.0-2.0) % Neut # (1.8-7.0) K/uL Lymph # (1.0-4.3) K/uL [place] # (0.0-0.8) K/uL Eos # (0.0-0.7) K/uL Baso # (0.0-0.2) K/uL Neutrophils % (Manual) (50-75) % Band Neutrophils % (0-2) % Lymphocytes % (Manual) (20-40) % Monocytes % (Manual) (0-10) % Eosinophils % (Manual) (0-4) % Nucleated RBC % (0-0) % Platelet Estimate (NORMAL) Polychromasia Hypochromasia (manual) Poikilocytosis (manual Anisocytosis (manual) Microcytosis (manual) Macrocytosis (manual) Ovalocytes Sodium (132-148) mmol/L Potassium (3.6-5.2) mmol/L Chloride (98-107) mmol/L Carbon Dioxide (22-30) mmol/L Anion Gap (10-20) BUN (7-17) mg/dL Creatinine (0.7-1.2) MG/DL Est GFR ( Amer) Est GFR (Non-Af Amer) POC Glucose (mg/dL) (65-110) mg/dL Random Glucose (65-105) mg/dL Hemoglobin A1c (4.2-6.5) % Calcium (8.6-10.4) mg/dl Phosphorus (2.5-4.5) mg/dL Magnesium (1.6-2.3) mg/dL Ferritin ng/mL Total Bilirubin (0.2-1.3) mg/dL AST (14-36) U/L ALT (9-52) U/L Alkaline Phosphatase (38-126) U/L Total Protein (6.3-8.3) g/dL Total Protein (PEP) (6.1-8.1) g/dL Albumin (3.5-5.0) g/dL Globulin (2.2-3.9) gm/dL Albumin/Globulin Ratio (1.0-2.1) Hgsv-5-Dhmxkprpgjzyg (<or= 2.51) mg/L Angiotensin Convert Enz (9-67) U/L Procalcitonin (0.19-0.49) NG/ML PTH Intact Whole Molec 14 (14-64) pg/mL Hep Bs Antigen Negative (NEGATIVE) Hep Bs Antibody Negative (NEGATIVE) Hep B Core IgM Ab Negative (NEGATIVE) Hepatitis C Antibody Reactive (NEGATIVE) HIV 1&2 Antibody Screen (NEGATIVE) 12/26/16 12/25/16 Range/Units 13:56 21:39 WBC (4.8-10.8) K/uL RBC (3.80-5.20) Mil/uL Hgb (11.0-16.0) g/dL Hct (34.0-47.0) % MCV (81.0-99.0) fL MCH (27.0-31.0) pg MCHC (33.0-37.0) g/dL RDW (11.5-14.5) % Plt Count (130-400) K/uL MPV (7.2-11.7) fL Neut % (Auto) (50.0-75.0) % Lymph % (Auto) (20.0-40.0) % [place] % (Auto) (0.0-10.0) % Eos % (Auto) (0.0-4.0) % Baso % (Auto) (0.0-2.0) % Neut # (1.8-7.0) K/uL Lymph # (1.0-4.3) K/uL [place] # (0.0-0.8) K/uL Eos # (0.0-0.7) K/uL Baso # (0.0-0.2) K/uL Neutrophils % (Manual) (50-75) % Band Neutrophils % (0-2) % Lymphocytes % (Manual) (20-40) % Monocytes % (Manual) (0-10) % Eosinophils % (Manual) (0-4) % Nucleated RBC % (0-0) % Platelet Estimate (NORMAL) Polychromasia Hypochromasia (manual) Poikilocytosis (manual Anisocytosis (manual) Microcytosis (manual) Macrocytosis (manual) Ovalocytes Sodium (132-148) mmol/L Potassium (3.6-5.2) mmol/L Chloride (98-107) mmol/L Carbon Dioxide (22-30) mmol/L Anion Gap (10-20) BUN (7-17) mg/dL Creatinine (0.7-1.2) MG/DL Est GFR ( Amer) Est GFR (Non-Af Amer) POC Glucose (mg/dL) (65-110) mg/dL Random Glucose (65-105) mg/dL Hemoglobin A1c (4.2-6.5) % Calcium (8.6-10.4) mg/dl Phosphorus (2.5-4.5) mg/dL Magnesium (1.6-2.3) mg/dL Ferritin ng/mL Total Bilirubin (0.2-1.3) mg/dL AST (14-36) U/L ALT (9-52) U/L Alkaline Phosphatase (38-126) U/L Total Protein (6.3-8.3) g/dL Total Protein (PEP) 5.8 L (6.1-8.1) g/dL Albumin (3.5-5.0) g/dL Globulin (2.2-3.9) gm/dL Albumin/Globulin Ratio (1.0-2.1) Ndrj-3-Gapytuinqxngx 44.80 H (<or= 2.51) mg/L Angiotensin Convert Enz 28 (9-67) U/L Procalcitonin (0.19-0.49) NG/ML PTH Intact Whole Molec (14-64) pg/mL Hep Bs Antigen (NEGATIVE) Hep Bs Antibody (NEGATIVE) Hep B Core IgM Ab (NEGATIVE) Hepatitis C Antibody (NEGATIVE) HIV 1&2 Antibody Screen (NEGATIVE) Laboratory Results - last 24 hr 12/25/16 12/26/16 12/26/16 21:39 13:56 13:56 WBC RBC Hgb Hct MCV MCH MCHC RDW Plt Count MPV Neut % (Auto) Lymph % (Auto) [place] % (Auto) Eos % (Auto) Baso % (Auto) Neut # Lymph # [place] # Eos # Baso # Neutrophils % (Manual) Band Neutrophils % Lymphocytes % (Manual) Monocytes % (Manual) Eosinophils % (Manual) Nucleated RBC % Platelet Estimate Polychromasia Hypochromasia (manual) Poikilocytosis (manual Anisocytosis (manual) Microcytosis (manual) Macrocytosis (manual) Ovalocytes Sodium Potassium Chloride Carbon Dioxide Anion Gap BUN Creatinine Est GFR ( Amer) Est GFR (Non-Af Amer) POC Glucose (mg/dL) Random Glucose Hemoglobin A1c Calcium Phosphorus Magnesium Ferritin Total Bilirubin AST ALT Alkaline Phosphatase Total Protein Total Protein (PEP) 5.8 L Albumin Globulin Albumin/Globulin Ratio Bbec-1-Amklrkbkytzbx 44.80 H Angiotensin Convert Enz 28 Procalcitonin PTH Intact Whole Molec 14 Hep Bs Antigen Hep Bs Antibody Hep B Core IgM Ab Hepatitis C Antibody HIV 1&2 Antibody Screen 0912/26/16 12/26/16 14:22 14:22 16:16 WBC RBC Hgb Hct MCV MCH MCHC RDW Plt Count MPV Neut % (Auto) Lymph % (Auto) [place] % (Auto) Eos % (Auto) Baso % (Auto) Neut # Lymph # [place] # Eos # Baso # Neutrophils % (Manual) Band Neutrophils % Lymphocytes % (Manual) Monocytes % (Manual) Eosinophils % (Manual) Nucleated RBC % Platelet Estimate Polychromasia Hypochromasia (manual) Poikilocytosis (manual Anisocytosis (manual) Microcytosis (manual) Macrocytosis (manual) Ovalocytes Sodium Potassium Chloride Carbon Dioxide Anion Gap BUN Creatinine Est GFR ( Amer) Est GFR (Non-Af Amer) POC Glucose (mg/dL) 151 H Random Glucose Hemoglobin A1c Calcium Phosphorus Magnesium Ferritin Total Bilirubin AST ALT Alkaline Phosphatase Total Protein Total Protein (PEP) Albumin Globulin Albumin/Globulin Ratio Qhno-4-Icxjjjuegjlaf Angiotensin Convert Enz Procalcitonin PTH Intact Whole Molec Hep Bs Antigen Negative Hep Bs Antibody Negative Hep B Core IgM Ab Negative Hepatitis C Antibody Reactive HIV 1&2 Antibody Screen 12/26/16 12/27/16 12/27/16 21:38 06:43 06:43 WBC 16.2 H RBC 2.61 L Hgb 8.4 L Hct 25.2 L MCV 96.4 MCH 32.1 H MCHC 33.3 RDW 16.6 H Plt Count 236 MPV 7.8 Neut % (Auto) 84.9 H Lymph % (Auto) 9.5 L [place] % (Auto) 4.1 Eos % (Auto) 0.9 Baso % (Auto) 0.6 Neut # 13.8 H Lymph # 1.5 [place] # 0.7 Eos # 0.1 Baso # 0.1 Neutrophils % (Manual) 85 H Band Neutrophils % 1 Lymphocytes % (Manual) 8 L Monocytes % (Manual) 4 Eosinophils % (Manual) 2 Nucleated RBC % 1 H Platelet Estimate Normal Polychromasia Slight Hypochromasia (manual) Slight Poikilocytosis (manual Slight Anisocytosis (manual) Slight Microcytosis (manual) Slight Macrocytosis (manual) Slight Ovalocytes Slight Sodium Potassium Chloride Carbon Dioxide Anion Gap BUN Creatinine Est GFR ( Amer) Est GFR (Non-Af Amer) POC Glucose (mg/dL) 148 H Random Glucose Hemoglobin A1c 6.1 Calcium Phosphorus Magnesium Ferritin Total Bilirubin AST ALT Alkaline Phosphatase Total Protein Total Protein (PEP) Albumin Globulin Albumin/Globulin Ratio Went-5-Rzewlcuqwbvht Angiotensin Convert Enz Procalcitonin PTH Intact Whole Molec Hep Bs Antigen Hep Bs Antibody Hep B Core IgM Ab Hepatitis C Antibody HIV 1&2 Antibody Screen 12/27/16 12/27/16 12/27/16 06:43 06:43 07:41 WBC RBC Hgb Hct MCV MCH MCHC RDW Plt Count MPV Neut % (Auto) Lymph % (Auto) [place] % (Auto) Eos % (Auto) Baso % (Auto) Neut # Lymph # [place] # Eos # Baso # Neutrophils % (Manual) Band Neutrophils % Lymphocytes % (Manual) Monocytes % (Manual) Eosinophils % (Manual) Nucleated RBC % Platelet Estimate Polychromasia Hypochromasia (manual) Poikilocytosis (manual Anisocytosis (manual) Microcytosis (manual) Macrocytosis (manual) Ovalocytes Sodium 138 Potassium 4.7 Chloride 102 Carbon Dioxide 22 Anion Gap 18 BUN 63 H Creatinine 5.8 H Est GFR ( Amer) 9 Est GFR (Non-Af Amer) 7 POC Glucose (mg/dL) 153 H Random Glucose 115 H Hemoglobin A1c Calcium 12.6 H Phosphorus 6.7 H Magnesium 2.4 H Ferritin 685.0 Total Bilirubin 0.6 AST 18 ALT 29 Alkaline Phosphatase 53 Total Protein 6.1 L Total Protein (PEP) Albumin 3.5 Globulin 2.6 Albumin/Globulin Ratio 1.4 Wuvz-8-Fzsovfziemprc Angiotensin Convert Enz Procalcitonin PTH Intact Whole Molec Hep Bs Antigen Hep Bs Antibody Hep B Core IgM Ab Hepatitis C Antibody HIV 1&2 Antibody Screen Negative 12/27/16 12/27/16 09:16 11:38 WBC RBC Hgb Hct MCV MCH MCHC RDW Plt Count MPV Neut % (Auto) Lymph % (Auto) [place] % (Auto) Eos % (Auto) Baso % (Auto) Neut # Lymph # [place] # Eos # Baso # Neutrophils % (Manual) Band Neutrophils % Lymphocytes % (Manual) Monocytes % (Manual) Eosinophils % (Manual) Nucleated RBC % Platelet Estimate Polychromasia Hypochromasia (manual) Poikilocytosis (manual Anisocytosis (manual) Microcytosis (manual) Macrocytosis (manual) Ovalocytes Sodium Potassium Chloride Carbon Dioxide Anion Gap BUN Creatinine Est GFR ( Amer) Est GFR (Non-Af Amer) POC Glucose (mg/dL) 148 H Random Glucose Hemoglobin A1c Calcium Phosphorus Magnesium Ferritin Total Bilirubin AST ALT Alkaline Phosphatase Total Protein Total Protein (PEP) Albumin Globulin Albumin/Globulin Ratio Wdmi-9-Axvaaowiuamth Angiotensin Convert Enz Procalcitonin 0.22 PTH Intact Whole Molec Hep Bs Antigen Hep Bs Antibody Hep B Core IgM Ab Hepatitis C Antibody HIV 1&2 Antibody Screen Critical Care Progress Note - Nutrition Nutrition: Nutrition Category Date Time Status Renal Diet [DIET] Diets 12/25/16 Dinner Active Attending/Attestation - Attestation I have personally seen and examined this patient.: Yes I have fully participated in the care of the patient.: Yes I have reviewed all pertinent clinical information: Yes Notes (Text): 12/27/16 16:02 Patient seen and examined in the intensive care unit. Case discussed with house staff in the morning rounds. Continue hemodialysis Tolerating for urine and blood electrophoresis Patient started on pamidronate Follow-up chest x-ray Continue nebulizer treatment
[2016-12-27] MEDS: (Novolin R) Insulin Human Regular 100 units/ml vial SC SCH ×4 (08:29→22:00)
--- NOTE | 2016-12-27 08:29 | RAD ---
Chest x-ray single frontal view History: Pneumonia. Comparison: 12/26/2016 Findings: Persistent prominent diffuse increased consolidative changes throughout both lungs with coarse reticular interstitial airspace opacities. More focal confluent airspace consolidative changes in the right midlung zone and left lung base with a small left pleural effusion. Scattered nodularity throughout both lungs. Cardiomegaly. Right central venous catheter tip extending into the right atrium. Cardiomegaly. Degenerative changes in the spine and shoulders. Impression: Persistent prominent diffuse increased consolidative changes throughout both lungs with coarse reticular interstitial airspace opacities. More focal confluent airspace consolidative changes in the right midlung zone and left lung base with a small left pleural effusion. Scattered nodularity throughout both lungs. Cardiomegaly.
[2016-12-27] MEDS: Sevelamer Carb 0.8 gm/Packet PO SCH ×3 (08:31→17:37)
--- NOTE | 2016-12-27 08:39 | CP.PCM.PN ---
Subjective - Date & Time of Evaluation Date of Evaluation: 12/27/16 Time of Evaluation: 08:39 - Subjective Subjective: Patient was seen and examined at bedside. Patient reports feeling out of breath , difficulty breathing, nonproductive cough, and a headache. She also reports having difficulty eating due to feeling nauseas. 12-point review of systems otherwise negative. Objective - Vital Signs/Intake and Output Vital Signs (last 24 hours): Temp Pulse Resp BP Pulse Ox 99.1 F 78 15 143/50 L 93 L 12/27/16 04:00 12/27/16 06:10 12/27/16 06:00 12/27/16 05:53 12/27/16 06:00 Intake and Output: 12/27/16 12/27/16 06:59 18:59 Intake Total 200 Output Total 45 Balance 155 - Medications Medications: Current Medications Famotidine (Pepcid) 20 mg PO DAILY [facility] Ferrous Sulfate (Feosol) 325 mg PO DAILY [facility] Last Admin: 12/26/16 09:49 Dose: 325 mg Glipizide (Glucotrol) 10 mg PO DAILY [facility] Heparin Sodium (Porcine) (Heparin) 5,000 units SC Q8 [facility] Last Admin: 12/27/16 06:51 Dose: 5,000 units Piperacillin Sod/Tazobactam Sod (Zosyn 2.25 Gm Iv Premix) 2.25 gm in 50 mls @ 100 mls/hr IVPB Q8H [facility] Last Admin: 12/27/16 06:39 Dose: 100 mls/hr Doxycycline Hyclate 100 mg/ (Sodium Chloride) 100 mls @ 100 mls/hr IVPB Q12H [facility] Last Admin: 12/27/16 08:30 Dose: 100 mls/hr Insulin Human Regular (Novolin R) 0 unit SC ACHS [facility] PRN Reason: Protocol Last Admin: 12/27/16 08:29 Dose: 1 unit Levothyroxine Sodium (Synthroid) 75 mcg PO DAILY@0630 [facility] Last Admin: 12/27/16 06:44 Dose: 75 mcg Pantoprazole Sodium (Protonix Ec Tab) 40 mg PO DAILY [facility] Sevelamer Carbonate (Renvela) 0.8 gm PO TIDCC [facility] Last Admin: 12/27/16 08:31 Dose: 0.8 gm - Labs Labs: 12/27/16 06:43 12/27/16 06:43 PT 13.1 SECONDS (9.7-12.2) H 12/26/16 08:05 INR 1.2 12/26/16 08:05 APTT 39 SECONDS (21-34) H 12/26/16 08:05 - Head Exam Head Exam: ATRAUMATIC, NORMAL INSPECTION - Eye Exam Eye Exam: EOMI, Normal appearance - ENT Exam ENT Exam: Mucous Membranes Moist - Respiratory Exam Respiratory Exam: Decreased Breath Sounds, Rales, Rhonchi, Wheezes. absent: Clear to Ausculation Bilateral Additional comments: On nasal cannula - Cardiovascular Exam Cardiovascular Exam: REGULAR RHYTHM, +S1, +S2. absent: Bradycardia, Tachycardia - GI/Abdominal Exam GI & Abdominal Exam: Soft, Normal Bowel Sounds. absent: Distended, Tenderness - Extremities Exam Extremities Exam: absent: Calf Tenderness, Pedal Edema, Tenderness - Neurological Exam Neurological Exam: Alert, Awake, Oriented x3 - Psychiatric Exam Psychiatric exam: Normal Affect, Normal Mood - Skin Skin Exam: Dry, Intact, Normal Color, Warm Assessment and Plan - Assessment and Plan (Free Text) Assessment: 81 year old female s/p Permacath placement, POD#2. - Patient is not medically stable for AV fistula at this time. - No surgical intervention. Please re-consult as needed. - Continue medical management as per ICU team.
[2016-12-27 08:40] LABS: EOSINOPHIL 2 % (0-4); NEUTROPHIL 85 % (50-75); NUCLEATED RED BLOOD CELL 1 % (0-0); TOTAL CELLS COUNTED 100
[2016-12-27] MEDS ORDERED: Pantoprazole 40 mg EC Tab PO SCH (10:00)
[2016-12-27 14:54] LABS: FREE KAPPA SERUM 17.5 mg/L (3.3-19.4); FREE LAMBDA SERUM 10021.7 mg/L (5.7-26.3)
--- NOTE | 2016-12-27 15:43 | CP.PCM.PN ---
Subjective - Date & Time of Evaluation Date of Evaluation: 12/27/16 Time of Evaluation: 14:20 - Subjective Subjective: on nonrebreather still very sob first HD yesterday calcium remains elevated Objective - Vital Signs/Intake and Output Vital Signs (last 24 hours): Temp Pulse Resp BP Pulse Ox 98.3 F 85 20 179/62 H 90 L 12/27/16 14:45 12/27/16 14:45 12/27/16 14:45 12/27/16 15:15 12/27/16 14:45 Intake and Output: 12/27/16 12/27/16 06:59 18:59 Intake Total 200 Output Total 45 Balance 155 - Medications Medications: Current Medications Famotidine (Pepcid) 20 mg PO DAILY [facility] Last Admin: 12/27/16 09:30 Dose: 20 mg Ferrous Sulfate (Feosol) 325 mg PO DAILY [facility] Last Admin: 12/27/16 09:31 Dose: 325 mg Glipizide (Glucotrol) 10 mg PO DAILY [facility] Last Admin: 12/27/16 09:31 Dose: 10 mg Heparin Sodium (Porcine) (Heparin) 5,000 units SC Q8 [facility] Last Admin: 12/27/16 06:51 Dose: 5,000 units Piperacillin Sod/Tazobactam Sod (Zosyn 2.25 Gm Iv Premix) 2.25 gm in 50 mls @ 100 mls/hr IVPB Q8H [facility] Last Admin: 12/27/16 13:59 Dose: 100 mls/hr Doxycycline Hyclate 100 mg/ (Sodium Chloride) 100 mls @ 100 mls/hr IVPB Q12H [facility] Last Admin: 12/27/16 08:30 Dose: 100 mls/hr Pamidronate Disodium 30 mg/ (Sodium Chloride) 510 mls @ 250 mls/hr IV ONCE ONE Stop: 12/27/16 17:02 Insulin Human Regular (Novolin R) 0 unit SC ACHS [facility] PRN Reason: Protocol Last Admin: 12/27/16 11:50 Dose: Not Given Levothyroxine Sodium (Synthroid) 75 mcg PO DAILY@0630 [facility] Last Admin: 12/27/16 06:44 Dose: 75 mcg Sevelamer Carbonate (Renvela) 0.8 gm PO TIDCC [facility] Last Admin: 12/27/16 13:35 Dose: 0.8 gm - Labs Labs: 12/27/16 06:43 12/27/16 06:43 PT 13.1 SECONDS (9.7-12.2) H 12/26/16 08:05 INR 1.2 12/26/16 08:05 APTT 39 SECONDS (21-34) H 12/26/16 08:05 - Constitutional Appears: In Acute Distress, Chronically Ill - Head Exam Head Exam: ATRAUMATIC - Eye Exam Eye Exam: EOMI - ENT Exam ENT Exam: Mucous Membranes Moist - Respiratory Exam Respiratory Exam: Decreased Breath Sounds, Rhonchi - GI/Abdominal Exam GI & Abdominal Exam: Distended. absent: Tenderness - Extremities Exam Extremities Exam: Pedal Edema - Neurological Exam Neurological Exam: Alert. absent: Oriented x3 Assessment and Plan - Assessment and Plan (Free Text) Assessment: myeloma fluid overload azotemia hypercalcemia repeat HD with low calcium bath, continue to remove fluid low dose aredia will follow
--- NOTE | 2016-12-27 17:33 | CP.PCM.PN ---
Subjective - Date & Time of Evaluation Date of Evaluation: 12/27/16 Time of Evaluation: 17:30 - Subjective Subjective: Medical Attending Note: Patient seen, examined and case discussed with ICU. Patient seen after dialysis. patient reporting shortness of breathe at bedside. Per discussion with dialysis nurse, patient has 2 liters removed from dialysis today. Patient reports she is moving her bowels. Objective - Vital Signs/Intake and Output Vital Signs (last 24 hours): Temp Pulse Resp BP Pulse Ox 98.3 F 79 18 138/59 L 94 L 12/27/16 16:00 12/27/16 16:00 12/27/16 16:00 12/27/16 16:45 12/27/16 16:00 Intake and Output: 12/27/16 12/27/16 06:59 18:59 Intake Total 200 440 Output Total 45 55 Balance 155 385 - Medications Medications: Current Medications Famotidine (Pepcid) 20 mg PO DAILY [facility] Last Admin: 12/27/16 09:30 Dose: 20 mg Ferrous Sulfate (Feosol) 325 mg PO DAILY [facility] Last Admin: 12/27/16 09:31 Dose: 325 mg Glipizide (Glucotrol) 10 mg PO DAILY [facility] Last Admin: 12/27/16 09:31 Dose: 10 mg Heparin Sodium (Porcine) (Heparin) 5,000 units SC Q8 [facility] Last Admin: 12/27/16 15:58 Dose: 5,000 units Piperacillin Sod/Tazobactam Sod (Zosyn 2.25 Gm Iv Premix) 2.25 gm in 50 mls @ 100 mls/hr IVPB Q8H [facility] Last Admin: 12/27/16 13:59 Dose: 100 mls/hr Doxycycline Hyclate 100 mg/ (Sodium Chloride) 100 mls @ 100 mls/hr IVPB Q12H [facility] Last Admin: 12/27/16 08:30 Dose: 100 mls/hr Insulin Human Regular (Novolin R) 0 unit SC ACHS [facility] PRN Reason: Protocol Last Admin: 12/27/16 16:38 Dose: Not Given Levothyroxine Sodium (Synthroid) 75 mcg PO DAILY@0630 [facility] Last Admin: 12/27/16 06:44 Dose: 75 mcg Sevelamer Carbonate (Renvela) 0.8 gm PO TIDCC [facility] Last Admin: 12/27/16 13:35 Dose: 0.8 gm - Labs Labs: 12/27/16 06:43 12/27/16 06:43 PT 13.1 SECONDS (9.7-12.2) H 12/26/16 08:05 INR 1.2 12/26/16 08:05 APTT 39 SECONDS (21-34) H 12/26/16 08:05 - Constitutional Appears: Non-toxic, In Acute Distress - Head Exam Head Exam: NORMAL INSPECTION - Eye Exam Eye Exam: EOMI - ENT Exam ENT Exam: Mucous Membranes Moist - Respiratory Exam Respiratory Exam: Decreased Breath Sounds. absent: Respiratory Distress, Stridor - Cardiovascular Exam Cardiovascular Exam: REGULAR RHYTHM, +S1, +S2 - GI/Abdominal Exam GI & Abdominal Exam: Distended, Soft, Normal Bowel Sounds. absent: Firm, Guarding, Rigid, Tenderness, Rebound Additional comments: morbidly obese - Extremities Exam Extremities Exam: absent: Pedal Edema, Tenderness - Back Exam Back Exam: absent: CVA tenderness (L), CVA tenderness (R) - Neurological Exam Neurological Exam: Alert, Awake, Oriented x3 - Skin Skin Exam: Dry, Intact, Normal Color, Warm Assessment and Plan - Assessment and Plan (Free Text) Assessment: (1) Fluid Overload Assessment and Plan: * ProBNP today: 77452 * Contributing factors: acute on chronic kidney disease and hx of diastolic congestive heart failure * Vascular Surgery: Dr. Ontiveros-->notified by emergency room; for emergent dialysis access * Nephrology: Dr Bill on board-->acute on chronic kidney insufficiency, hypercalcemia; emergent dialysis * Chest Xray (12/25/16): prominent diffuse increased interstital lung markings throughout both lungs suggestive for edema and/or infiltrate * Chest Xray (12/27/16): persistent prominent diffuse increased consolidative changes throughtout both lungs with coarse reticular interstital airspce opacities. More focal confluent airspace consolidative changes in the right right midlung zone and left lung base with small left plueral effusion. Cardiomegaly * Monitor intake output * Daily weights * 12/27/16: 2nd dialysis session today--> 2 liters removed (2) Acute kidney injury superimposed on chronic kidney disease Assessment and Plan: * Nephrology Dr. Bill consulted-->help appreciated * Vascular Surgery: Dr. Ontiveros-->help appreciated * Surgery consulted; tunneled dialysis catheter placed 12/25; f * Heme-Oncology: Dr Martinez-->help appreciated * Possible patient has light chain multiple myeloma * Recommended for SPEP, IPEP--->pending * free light chain lambda: 744255.7 * free light chain kappa: 17.5 * 24 hr urine UPEP * urine IPE * beta2 microglobulin * LDH: 522 * Prior SPEP: (12/02/16): M Adarsh migrating in the gamma globulin region * BUN/Cr elevated today: 90/7.7 * 12/25 Urinanalysis: +leuk esterase, 2+ protein, + Wbc and + RBC * urine culture: no growth (<1000 CFU/ml) * Ct Abdomen/Pelvis (12/25/16): No evidence of nephrolithiasis or hydronephrosis , 1,5 cm exophyitc high attentuation lesion at the mid to lower pole of right kidney. possibility of renal cell carcnioma should be excluded. 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 Airspace consolidation at left lobe associated with small pleural fussion suspicious for pneumonia Status: Acute (3) Possible Multiple Myeloma Assessment and Plan: * Criteria: anemia, renal insufficiency, hypercalcemia * Nephrology Dr. Bill consulted-->help appreciated * Vascular Surgery: Dr. Ontiveros-->help appreciated * Surgery consulted and will place permacath with plan for HD today * Heme-Oncology: Dr Martinez-->help appreciated * Possible patient has light chain multiple myeloma * Recommended for SPEP, IPEP--->pending * free light chain lambda: 030016.7 * free light chain kappa: 17.5 * 24 hr urine UPEP-->--->pending * urine IPE--->--->pending * beta2 microglobulin--->--->pending * LDH: 522 * Prior SPEP: (12/02/16): M Adarsh migrating in the gamma globulin region * 12/27: discussed with Dr. Martinez, patient's for bone marrow biopsy for Sunday and possible start chemotherapy. * BUN/Cr elevated today: 90/7.7 * 12/25 Urinanalysis: +leuk esterase, 2+ protein, + Wbc and + RBC * urine culture: no growth (<1000 CFU/ml) * Ct Abdomen/Pelvis (12/25/16): No evidence of nephrolithiasis or hydronephrosis , 1,5 cm exophyitc high attentuation lesion at the mid to lower pole of right kidney. possibility of renal cell carcnioma should be excluded. 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 Airspace consolidation at left lobe associated with small pleural fussion suspicious for pneumonia * Pending Echocardiogram--> to check prognosis Status: Acute (4) Hypercalcemia Assessment and Plan: * Nephrology (Dr. Bill) on board-->help appreciated * Heme-onc (Dr. Martinez) on board--->help appreciated * PTH related Protein: pending * PTH intact: 14 * Vitamin D: 66.6 * ОЛЕГ: 28 * Ionized Calcium: 6.7 * Possible patient has light chain multiple myeloma * Recommended for SPEP, IPEP--->pending * free light chain lambda: 191288.7 * free light chain kappa: 17.5 * 24 hr urine UPEP-->--->pending * urine IPE--->--->pending * beta2 microglobulin--->--->pending * LDH: 522 * Prior SPEP: (12/02/16): M Adarsh migrating in the gamma globulin region Status: Acute (5) Possible CHF exacerbation Assessment and Plan: * History of diastolic congestive heart failure * Cardiology (Dr. Little) on consult; covering for Dr. Lynch's patients * ProBNP today: 55627 * 06/28/16 Echo showed EF of 83% with borderline concentric LVH. Mild-moderate mitral regurgitation * pending repeat echo result * 12/01 EKG: normal, NSR * monitor intake and output * Daily Weights Status: Acute (6) Anemia Assessment and Plan: * Heme-onc (Dr. Martinez) on board-->help appreciated * Discussed with PMD: Dr. Winkler-->patient has had workup including GI workup in 2017 in regards to anemia * Thought to be chronic secondary to kidney disease * Continue home meds Ferrous sulfate 325 mg daily * s/p 1 unit of PRBC on 12/25 7.2 * 12/25 stool occult blood: negative * Prior hospitalizations included in patient's chart; awaiting copy of report of GI workup Status: Chronic (7) Atrial fibrillation Assessment and Plan: * Cardiology (Dr. Little) covering for Dr. Lynch's patients * Continue home meds: Amiodarone 200 mg daily, Cardizem 240 mg daily * Patient is not on anticoagulation secondary to anemia * CHADS: 4 (DM, Age, HTN, CHF) * HASBLED:2 (Age and Renal Disease) Status: Acute (8) HTN (hypertension) Assessment and Plan: * Monitor vital signs * Restart Amiodarone 200mg PO daily and Cardizem 240mg PO daily Status: Chronic (9) Leukocytosis Assessment and Plan: * In the ED, order for dose of Zosyn and Vancomycin on 12/25 * Strep, legionella: negative and mycoplasma IgM: negative * Patient recently at the hospital within 90 days-->consideration for possible hospital acquired pneumonia * Patient does not meet sepsis critera (04/19: leukocytosis) * Start Zosyn 2.25 gr IV Q8H (active since 12/25/16) and Doxcycline 100mg IV Q 12hours (active since 12/25/16) * Blood Culture (12/25/16): no growth after 24 hours X2 * Urine culture (12/25/16): <1000 * Procalcitonin low Status: Acute (10) History of pulmonary fibrosis Assessment and Plan: * Consult: Dr Kessler (pulmonary fibrosis) on board * continue home meds: Pulmicort Flexhaler 90 mcg INH RQ12hr * f/u sputum culture-->pending * Start on Solumedrol 40mg IV Q 8 hours per pulmonary Status: Chronic (11) History of Gastritis Assessment and Plan: * Pepcid 20mg PO daily Status: Chronic (12) Diabetes 1.5, managed as type 2 Assessment and Plan: * Continue home meds: Glipizide 10 mg daily * daily Accuchecks QAC and HS * [id number] Status: Chronic (13) Hypothyroidism Status: Chronic * Order TSH in AM-->pending Status: Chronic (14) Hepatitis Assessment and Plan: * RUQ pain will f/u Amylase, lipase which are normal * LFTs are normal Status: Chronic (15) History of back pain Assessment and Plan: * held Magnesium oxide 400 mg BID; Tramadol-Acetaminophen 32.5-325 mg 2 tablets Q6hr Status: Acute (16) Lower extremity pain Assessment and Plan: * Held Magnesium oxide 400 mg BID; Tramadol-Acetaminophen 32.5-325 mg 2 tablets Q6hr Status: Acute (17) Prophylactic measure Assessment and Plan: * DVT: SCDs b/l; Heparin 5000 units subq 8 hours * GI: Omeprazole 20 mg daily * Chemical anticoagulation contraindicated secondary anemia * Monitor intake and output * Daily Weight Status: Acute
[2016-12-27] MEDS: MethylPREDNISolone 40 mg Vial IVP SCH (18:19)
--- NOTE | 2016-12-27 23:43 | CP.PCM.PN ---
Subjective - Date & Time of Evaluation Date of Evaluation: 12/27/16 Time of Evaluation: 19:45 - Subjective Subjective: Patient seen and evaluated Comfortable Physical Exam - Constitutional Appears: No Acute Distress - Head Exam Head Exam: ATRAUMATIC, NORMAL INSPECTION, NORMOCEPHALIC - Eye Exam Eye Exam: EOMI, Normal appearance, PERRL - ENT Exam ENT Exam: Mucous Membranes Moist - Neck Exam Neck exam: Positive for: Normal Inspection. Negative for: Thyromegaly - Respiratory Exam Respiratory Exam: Decreased Breath Sounds. absent: Accessory Muscle Use - Cardiovascular Exam Cardiovascular Exam: REGULAR RHYTHM, +S1, +S2. absent: JVD - GI/Abdominal Exam GI & Abdominal Exam: Hypoactive Bowel Sounds, Tenderness - Extremities Exam Extremities exam: Positive for: pedal edema, pedal pulses present - Neurological Exam Neurological exam: Alert, CN II-XII Intact, Oriented x3 - Psychiatric Exam Psychiatric exam: Normal Affect, Normal Mood - Skin Skin Exam: Dry, Intact, Normal Color, Warm Objective - Vital Signs/Intake and Output Vital Signs (last 24 hours): Temp Pulse Resp BP Pulse Ox 98.2 F 88 36 H 132/56 L 97 12/27/16 17:15 12/27/16 20:22 12/27/16 20:22 12/27/16 20:22 12/27/16 20:22 Intake and Output: 12/27/16 12/28/16 18:59 06:59 Intake Total 635 Output Total 55 Balance 580 - Medications Medications: Current Medications Famotidine (Pepcid) 20 mg PO DAILY [facility] Last Admin: 12/27/16 09:30 Dose: 20 mg Ferrous Sulfate (Feosol) 325 mg PO DAILY [facility] Last Admin: 12/27/16 09:31 Dose: 325 mg Glipizide (Glucotrol) 10 mg PO DAILY [facility] Last Admin: 12/27/16 09:31 Dose: 10 mg Heparin Sodium (Porcine) (Heparin) 5,000 units SC Q8 [facility] Last Admin: 12/27/16 21:15 Dose: 5,000 units Piperacillin Sod/Tazobactam Sod (Zosyn 2.25 Gm Iv Premix) 2.25 gm in 50 mls @ 100 mls/hr IVPB Q8H [facility] Last Admin: 12/27/16 13:59 Dose: 100 mls/hr Doxycycline Hyclate 100 mg/ (Sodium Chloride) 100 mls @ 100 mls/hr IVPB Q12H [facility] Last Admin: 12/27/16 21:15 Dose: 100 mls/hr Insulin Human Regular (Novolin R) 0 unit SC ACHS [facility] PRN Reason: Protocol Last Admin: 12/27/16 16:38 Dose: Not Given Levothyroxine Sodium (Synthroid) 75 mcg PO DAILY@0630 [facility] Last Admin: 12/27/16 06:44 Dose: 75 mcg Methylprednisolone (Solu-Medrol) 40 mg IVP Q8H [facility] Last Admin: 12/27/16 18:19 Dose: 40 mg Sevelamer Carbonate (Renvela) 0.8 gm PO TIDCC [facility] Last Admin: 12/27/16 17:37 Dose: 0.8 gm - Labs Labs: 12/27/16 06:43 12/27/16 06:43 PT 13.1 SECONDS (9.7-12.2) H 12/26/16 08:05 INR 1.2 12/26/16 08:05 APTT 39 SECONDS (21-34) H 12/26/16 08:05 Assessment and Plan - Assessment and Plan (Free Text) Assessment: (6) Atrial fibrillation Assessment and Plan: * Cardiology (Dr. Little) covering for Dr. Lynch's patients * Continue home meds: Amiodarone 200 mg daily, Cardizem 240 mg daily * Patient is not on anticoagulation secondary to anemia * CHADS: 4 (DM, Age, HTN, CHF) * HASBLED:2 (Age and Renal Disease) Status: Acute Not on AC due to low Hgb Check stool guiac Start Heparin IV once Hgb above 9 and guiac negative (2) Acute kidney injury superimposed on chronic kidney disease Assessment and Plan: * Nephrology Dr. Bill consulted-->help appreciated * Vascular Surgery: Dr. Ontiveros-->help appreciated * Surgery consulted; tunneled dialysis catheter placed 12/25; * Heme-Oncology: Dr Martinez-->help appreciated * Possible patient has light chain multiple myeloma * Recommended for SPEP, IPEP, free light chain lambda, free light chain kappa, 24 hr urine UPEP, urine IPEP, beta2 microglobulin, and LDH-->pending * Prior SPEP: (12/02/16): M Adarsh migrating in the gamma globulin region * BUN/Cr elevated today: 90/7.7 * 12/25 Urinanalysis: +leuk esterase, 2+ protein, + Wbc and + RBC * f/u urine culture-->pending * Ct Abdomen/Pelvis (12/25/16): No evidence of nephrolithiasis or hydronephrosis , 1,5 cm exophyitc high attentuation lesion at the mid to lower pole of right kidney. possibility of renal cell carcnioma should be excluded. 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 Airspace consolidation at left lobe associated with small pleural fussion suspicious for pneumonia Status: Acute (3) Possible Multiple Myeloma Assessment and Plan: * Criteria: anemia, renal insufficiency, hypercalcemia * Nephrology Dr. Bill consulted-->help appreciated * Vascular Surgery: Dr. Ontiveros-->help appreciated * Surgery consulted and will place permacath with plan for HD today * Heme-Oncology: Dr Martinez-->help appreciated * Possible patient has light chain multiple myeloma * Recommended for SPEP, IPEP, free light chain lambda, free light chain kappa, 24 hr urine UPEP, urine IPEP, beta2 microglobulin, and LDH-->pending * BUN/Cr elevated today: 90/7.7 * 12/25 Urinanalysis: +leuk esterase, 2+ protein, + Wbc and + RBC * f/u urine culture-->pending * Ct Abdomen/Pelvis (12/25/16): No evidence of nephrolithiasis or hydronephrosis , 1,5 cm exophyitc high attentuation lesion at the mid to lower pole of right kidney. possibility of renal cell carcnioma should be excluded. 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 Airspace consolidation at left lobe associated with small pleural fussion suspicious for pneumoni Status: Acute (4) Diastolic CHF Assessment and Plan: * History of diastolic congestive heart failure * Cardiology (Dr. Little) on consult; covering for Dr. Lynch's patients * ProBNP today: 18112 * 06/28/16 Echo showed EF of 83% with borderline concentric LVH. Mild-moderate mitral regurgitation * 12/01 EKG: normal, NSR * monitor intake and output * Daily Weights Status: Acute Prior cath: Non obstructive (5) Anemia Assessment and Plan: * Heme-onc (Dr. Martinez) on board-->help appreciated * Discussed with PMD: Dr. Winkler-->patient has had workup including GI workup in 2017 in regards to anemia * Thought to be chronic secondary to kidney disease * Continue home meds Ferrous sulfate 325 mg daily * s/p 1 unit of PRBC on 12/25 7.2 * 12/25 stool occult blood: negative * Prior hospitalizations included in patient's chart; awaiting copy of report of GI workup Status: Chronic (6) HTN (hypertension) Assessment and Plan: * Monitor vital signs * Restart Amiodarone 200mg PO daily and Cardizem 240mg PO daily Status: Chronic (7) Leukocytosis Assessment and Plan: * In the ED, order for dose of Zosyn and Vancomycin on 12/25 * Difficult to discern if patient has pneumonia given she is also appears fluid overload * Post dialysis chest xray 12/26 * Strep, legionella: negative and mycoplasma IgM: negative * Patient recently at the hospital within 90 days-->consideration for possible hospital acquired pneumonia * Patient does not meet sepsis critera (04/19: leukocytosis) * Start Zosyn 2.25 gr IV Q8H (active since 12/25/16) and Doxcycline 100mg IV Q 12hours (active since 12/25/16) * Discussed with ED nurse, blood and urine cultures were collected-->pending Status: Acute (8) History of asthma Assessment and Plan: * continue home meds: Pulmicort Flexhaler 90 mcg INH RQ12hr * f/u sputum culture-->pending Status: Chronic (9) History of Gastritis Assessment and Plan: * Pepcid 20mg PO daily Status: Chronic (10) Diabetes 1.5, managed as type 2 Assessment and Plan: * Continue home meds: Glipizide 10 mg daily * daily Accuchecks QAC and HS * [id number] Status: Chronic (11) Hypothyroidism Status: Chronic * Order TSH in AM-->pending Status: Chronic (12) Hepatitis Assessment and Plan: * RUQ pain will f/u Amylase, lipase which are normal * LFTs are normal Status: Chronic (13) History of back pain Assessment and Plan: * held Magnesium oxide 400 mg BID; Tramadol-Acetaminophen 32.5-325 mg 2 tablets Q6hr Status: Acute (14) Lower extremity pain Assessment and Plan: * Held Magnesium oxide 400 mg BID; Tramadol-Acetaminophen 32.5-325 mg 2 tablets Q6hr Status: Acute (15) Prophylactic measure Assessment and Plan: * DVT: SCD * GI: Omeprazole 20 mg daily * Chemical anticoagulation contraindicated secondary anemia * Monitor intake and output * Daily Weight Status: Acute Critical care time 45 minutes
[2016-12-28] MEDS: MethylPREDNISolone 40 mg Vial IVP SCH ×3 (00:45→16:45)
--- NOTE | 2016-12-28 05:29 | CON ---
DATE: REASON FOR CONSULTATION: Colon cancer severe anemia. HISTORY OF PRESENT ILLNESS: This is a 81-year-old female with history of congestive heart failure, atrial fibrillation, hypertension, anemia, diabetes mellitus, hypothyroidism, gastritis, hepatitis C in remission after treatment, brought to the emergency room with increasing shortness of breath, left shoulder pain. Also having a right flank pain. This is getting worse over the last few weeks. The patient has nauseous feeling, minimal vomiting. No blood in the vomitus. No fever or chills. The patient is on iron supplements for anemia at present time. On admission, the patient found to have a severe anemia. Adrenal insufficiency requiring dialysis. Also CAT scan of the abdomen showed multiple lytic lesion in the bone suspicious of metastatic disease and colon cancer for further evaluation and suggestion. PAST MEDICAL HISTORY: Significant for congestive heart failure, atrial fibrillation, hypertension, anemia, diabetes mellitus, hypothyroidism, gastritis, and hepatitis C in remission. PAST SURGICAL HISTORY: Removal of the breast lipoma. ALLERGIES: NO KNOWN DRUG ALLERGIES. SOCIAL HISTORY: She used to smoke about five cigarettes a day, quit many years ago about 40 years. No alcohol abuse. No drug abuse. Lives with a brother from the . FAMILY HISTORY: Noncontributory. MEDICATIONS: List of medication include iron supplement 325 mg, levothyroxine 75 mcg, budesonide 90 mcg one puff every 12 hours, amiodarone 200 mg daily, diltiazem ER 240 mg daily, glipizide 10 mg daily, Anoro Ellipta one puff daily, omeprazole 20 mg daily, furosemide 40 mg daily, Lidoderm patch 5% daily, magnesium oxide 400 mg twice a day, tramadol q. 6 hours p.r.n. for pain. REVIEW OF SYSTEMS: Other than feeling weak, tired, shortness of breath on exertion, and some lower back pain is essentially normal. Denies any fever, chills, night sweat or weight loss. The patient does have nausea and vomiting. No dysuria or hematuria. Urinary output has decreased. No change in the color of the stool. No change in the bowel habit. PHYSICAL EXAMINATION GENERAL: The patient is awake and alert, quite,pleasant, not in acute distress. VITAL SIGNS: Temperature 98.3, pulse 80, respirations 20, blood pressure is 143/62. HEENT: Head is normocephalic and atraumatic. Eyes, conjunctivae pale. Sclera white. Pupil reacting to light. Ears, nose, and throat within normal limits. LUNGS: Decreased breath sound at both the bases. HEART: S1 and S2 regular. No gallop. No murmur. ABDOMEN: Soft and nondistended. Nontender. No hepatosplenomegaly. CENTRAL NERVOUS SYSTEM: No gross motor or sensory deficit. LYMPH NODE: No cervical or axillary lymph nodes palpable. LABORATORY DATA: WBC 16,200, hemoglobin 8.4, hematocrit 25.2, platelet count 236,000. BUN is 63, creatinine is 5.8, calcium is 12.6. CAT scan of the abdomen and pelvis showed 1.5 cm exophytic high attenuation lesion in the middle lower pole of the right kidney, possible renal cell carcinoma. It can be hemorrhagic cyst also. This diffuse lytic bone lesion highly suggestive of multiple myeloma. IMPRESSION: Anemia secondary to the renal insufficiency. Lytic lesion in the bone, rule out multiple myeloma. PLAN: We already done the serum protein electrophoresis, immune protein electrophoresis, free kappa and free lambda light chain proteins, LDH and beta-2 microglobulin. We will follow up those results and then plan for the treatment, most likely it is a light chain multiple myeloma, will be treated with Velcade, Cytoxan and the Decadron. Discussed briefly with the brother. Discussed with Dr. Winkler. Thank you for letting me participate in the care of this patient and I will follow up the patient with you. Iggy Martinez MD cc: Dutch Winkler MD
[2016-12-28 06:08] LABS: CREATININE, 24 HOUR URINE 0.59 g/24 h (0.63-2.50)
[2016-12-28] MEDS: Levothyroxine 75 MCG TAB PO SCH (06:10)
[2016-12-28 06:11] LABS: BASO % 0.3 % (0.0-2.0); EOS % 0.2 % (0.0-4.0); HEMATOCRIT 21.5 % (34.0-47.0); LYMPH # 0.9 K/uL (1.0-4.3); LYMPH % 5.2 % (20.0-40.0); MEAN CELL VOLUME 96.8 fL (81.0-99.0); MEAN CORPUSCULAR HEMOGLOBIN 32.5 pg (27.0-31.0); MEAN CORPUSCULAR HGB CONC 33.6 g/dL (33.0-37.0); MONO # 0.3 K/uL (0.0-0.8); MONO % 1.9 % (0.0-10.0); NRBC % 0.1 % (0.0-2.0); PLATELET COUNT 200 K/uL (130-400); RED CELL DISTRIBUTION WIDTH 16.5 % (11.5-14.5); WHITE BLOOD COUNT 16.7 K/uL (4.8-10.8)
[2016-12-28] MEDS: Piperacill/Tazo 2.25gm in Dex 2.25 GM/50 ML BAG IVPB SCH ×3 (06:12→22:24)
[2016-12-28 06:31] LABS: ALB/GLOB RATIO 1.2 (1.0-2.1); BILIRUBIN,TOTAL 0.4 mg/dL (0.2-1.3); CALCIUM 11.4 mg/dl (8.6-10.4); MAGNESIUM 2.1 mg/dL (1.6-2.3); PHOSPHOROUS 6.9 mg/dL (2.5-4.5); POTASSIUM 4.6 mmol/L (3.6-5.2); TOTAL PROTEIN 6.1 g/dL (6.3-8.3)
[2016-12-28 07:39] LABS: ABNORMAL PROTEIN BAND 1 0.23 g/dL (None Detected); BETA 1 GLOBULIN 0.3 g/dL (0.4-0.6); BETA 2 GLOBULIN 0.3 g/dL (0.2-0.5); GAMMA GLOBULIN 0.7 g/dL (0.8-1.7)
[2016-12-28] MEDS: (Novolin R) Insulin Human Regular 100 units/ml vial SC SCH ×4 (08:00→22:24)
[2016-12-28] MEDS: Sevelamer Carb 0.8 gm/Packet PO SCH ×3 (08:37→16:40)
[2016-12-28 08:56] LABS: NEUTROPHIL 90 % (50-75); NUCLEATED RED BLOOD CELL 1 % (0-0); TOTAL CELLS COUNTED 100
[2016-12-28 08:57] LABS: LARGE PLATELETS PRESENT
--- NOTE | 2016-12-28 09:23 | RAD ---
Chest x-ray single frontal view History: Pneumonia. Comparison: 12/27/2016 Findings: Lines and tubes stable position. Persistent ill-defined dense reticular opacities throughout both lungs with more confluent consolidative changes in the right mid to lower lung zone as well as the left lung base. Suggestion of a left-sided pleural effusion. Cardiomegaly. Calcification at the aortic knob. Degenerative changes in the spine and shoulders. Impression: Lines and tubes in stable position. Persistent ill-defined dense reticular opacities throughout both lungs with more confluent consolidative changes in the right mid to lower lung zone as well as the left lung base. Suggestion of a left-sided pleural effusion. Cardiomegaly. Calcification at the aortic knob.
--- NOTE | 2016-12-28 09:48 | CP.PCM.PN ---
Subjective - Date & Time of Evaluation Date of Evaluation: 12/28/16 Time of Evaluation: 09:45 - Subjective Subjective: Medical Attending Note: Patient seen, examined at bedside. Patient sitting upright in chair. Conversant in both Monegasque and Tunisian at bedside. patient had bowel movement this morning. Patient is not making any urine. Patient reports shortness of breathe; patient has high flow on her. Patient reports she was quite anxious last night. Patient denies abdominal pain, denies nausea, denies vomitting. Objective - Vital Signs/Intake and Output Vital Signs (last 24 hours): Temp Pulse Resp BP Pulse Ox 98.1 F 74 20 117/40 L 95 12/28/16 08:00 12/28/16 06:22 12/28/16 07:40 12/28/16 06:22 12/28/16 06:22 Intake and Output: 12/28/16 12/28/16 06:59 18:59 Intake Total 790 Balance 790 - Medications Medications: Current Medications Famotidine (Pepcid) 20 mg PO DAILY [facility] Last Admin: 12/27/16 09:30 Dose: 20 mg Ferrous Sulfate (Feosol) 325 mg PO DAILY [facility] Last Admin: 12/27/16 09:31 Dose: 325 mg Glipizide (Glucotrol) 10 mg PO DAILY [facility] Last Admin: 12/27/16 09:31 Dose: 10 mg Heparin Sodium (Porcine) (Heparin) 5,000 units SC Q8 [facility] Last Admin: 12/28/16 06:10 Dose: 5,000 units Piperacillin Sod/Tazobactam Sod (Zosyn 2.25 Gm Iv Premix) 2.25 gm in 50 mls @ 100 mls/hr IVPB Q8H [facility] Last Admin: 12/28/16 06:12 Dose: 100 mls/hr Doxycycline Hyclate 100 mg/ (Sodium Chloride) 100 mls @ 100 mls/hr IVPB Q12H [facility] Last Admin: 12/28/16 08:38 Dose: 100 mls/hr Insulin Human Regular (Novolin R) 0 unit SC ACHS [facility] PRN Reason: Protocol Last Admin: 12/28/16 08:00 Dose: 3 unit Levothyroxine Sodium (Synthroid) 75 mcg PO DAILY@0630 [facility] Last Admin: 12/28/16 06:10 Dose: 75 mcg Methylprednisolone (Solu-Medrol) 40 mg IVP Q8H [facility] Last Admin: 12/28/16 08:48 Dose: 40 mg Sevelamer Carbonate (Renvela) 0.8 gm PO TIDCC [facility] Last Admin: 12/28/16 08:37 Dose: 0.8 gm - Labs Labs: 12/28/16 06:02 12/28/16 06:02 PT 13.1 SECONDS (9.7-12.2) H 12/26/16 08:05 INR 1.2 12/26/16 08:05 APTT 39 SECONDS (21-34) H 12/26/16 08:05 - Constitutional Appears: Non-toxic, No Acute Distress - Head Exam Head Exam: NORMAL INSPECTION Additional comments: obese, upright - Eye Exam Eye Exam: EOMI. absent: Nystagmus, Scleral icterus - ENT Exam ENT Exam: Mucous Membranes Moist - Respiratory Exam Respiratory Exam: Decreased Breath Sounds, Rales. absent: Wheezes, Respiratory Distress, Stridor Additional comments: tunnelled dialysis catheter (right side of chest): clean/dry/intact mild ecchymoses - Cardiovascular Exam Cardiovascular Exam: REGULAR RHYTHM, +S1, +S2 - GI/Abdominal Exam GI & Abdominal Exam: Soft, Normal Bowel Sounds. absent: Distended, Firm, Guarding, Rigid, Tenderness, Rebound Additional comments: obese habitus - Neurological Exam Neurological Exam: Alert, Awake, Oriented x3 - Psychiatric Exam Psychiatric exam: Normal Affect, Normal Mood - Skin Skin Exam: Dry, Intact, Normal Color, Warm Assessment and Plan - Assessment and Plan (Free Text) Assessment: (1) Fluid Overload Assessment and Plan: * ProBNP today: 45491 * Contributing factors: acute on chronic kidney disease and hx of diastolic congestive heart failure * Vascular Surgery: Dr. Ontiveros-->notified by emergency room; for emergent dialysis access * Nephrology: Dr Bill on board-->acute on chronic kidney insufficiency, hypercalcemia; emergent dialysis * Chest Xray (12/25/16): prominent diffuse increased interstital lung markings throughout both lungs suggestive for edema and/or infiltrate * Chest Xray (12/27/16): persistent prominent diffuse increased consolidative changes throughtout both lungs with coarse reticular interstital airspce opacities. More focal confluent airspace consolidative changes in the right right midlung zone and left lung base with small left plueral effusion. Cardiomegaly * Monitor intake output * Daily weights * 12/27/16: 2nd dialysis session today--> 2 liters removed * 12/28/16: Spoke with Dr. Bill-->dialysis for tomorrow; pending chest xray read (2) Acute kidney injury superimposed on chronic kidney disease Assessment and Plan: * Nephrology Dr. Bill consulted-->help appreciated * Hepatitis panel: Negative * HIV: negative * Mycoplasma Igm: negative * Legionella; Negative * Vascular Surgery: Dr. 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 * Recommended for SPEP, IPEP--->pending * free light chain lambda: 973015.7 * free light chain kappa: 17.5 * 24 hr urine UPEP-->resulting--> 2108 (high) * urine IPE * beta2 microglobulin * LDH: 522 * Prior SPEP: (12/02/16): M Adarsh migrating in the gamma globulin region; 12/25 : M spike * immuonfixation: pending * BUN/Cr elevated today: 90/7.7 * 12/25 Urinanalysis: +leuk esterase, 2+ protein, + Wbc and + RBC * urine culture: no growth (<1000 CFU/ml) * Ct Abdomen/Pelvis (12/25/16): No evidence of nephrolithiasis or hydronephrosis , 1,5 cm exophyitc high attentuation lesion at the mid to lower pole of right kidney. possibility of renal cell carcnioma should be excluded. 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 Airspace consolidation at left lobe associated with small pleural fussion suspicious for pneumonia Status: Acute (3) Possible Multiple Myeloma Assessment and Plan: * Criteria: anemia, renal insufficiency, hypercalcemia * Nephrology Dr. Bill consulted-->help appreciated * Vascular Surgery: Dr. Ontiveros-->help appreciated * Surgery consulted and will place permacath with plan for HD today * Heme-Oncology: Dr Martinez-->help appreciated * Possible patient has light chain multiple myeloma * free light chain lambda: 573950.7 * free light chain kappa: 17.5 * 24 hr urine UPEP--> 2108 (high) * urine IPE--->--->pending * beta2 microglobulin--->--->pending * LDH: 522 * Prior SPEP: (12/02/16): M Adarsh migrating in the gamma globulin region; 12/25 : M spike * 12/27: discussed with Dr. Martinez, patient's for bone marrow biopsy for Sunday and possible start chemotherapy. Pending echocardiogram. * BUN/Cr elevated today: 90/7.7 * 12/25 Urinanalysis: +leuk esterase, 2+ protein, + Wbc and + RBC * urine culture: no growth (<1000 CFU/ml) * Ct Abdomen/Pelvis (12/25/16): No evidence of nephrolithiasis or hydronephrosis , 1,5 cm exophyitc high attentuation lesion at the mid to lower pole of right kidney. possibility of renal cell carcnioma should be excluded. 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 Airspace consolidation at left lobe associated with small pleural fussion suspicious for pneumonia * Pending Echocardiogram--> to check prognosis Status: Acute (4) Hypercalcemia Assessment and Plan: * Nephrology (Dr. Bill) on board-->help appreciated * Heme-onc (Dr. Martinez) on board--->help appreciated * PTH related Protein: pending * PTH intact: 14 * Vitamin D: 66.6 * ОЛЕГ: 28 * Ionized Calcium: 6.7 * Possible patient has light chain multiple myeloma * Recommended for SPEP, IPEP--->pending * free light chain lambda: 886309.7 * free light chain kappa: 17.5 * 24 hr urine UPEP--> 2108 (high) * urine IPE--->--->pending * beta2 microglobulin--->--->pending * LDH: 522 * Prior SPEP: (12/02/16): M Adarsh migrating in the gamma globulin region; 12/25 : M spike Status: Acute (5) Possible CHF exacerbation Assessment and Plan: * History of diastolic congestive heart failure * Cardiology (Dr. Little) on consult; covering for Dr. Lynch's patients * ProBNP today: 70187 * 06/28/16 Echo showed EF of 83% with borderline concentric LVH. Mild-moderate mitral regurgitation * pending repeat echo result * 12/01 EKG: normal, NSR * monitor intake and output * Daily Weights Status: Acute (6) Anemia Assessment and Plan: * Heme-onc (Dr. Martinez) on board-->help appreciated * Discussed with PMD: Dr. Winkler-->patient has had workup including GI workup in 2017 in regards to anemia * Thought to be chronic secondary to kidney disease * Continue home meds Ferrous sulfate 325 mg daily * s/p 1 unit of PRBC on 12/25 7.2 * 12/25 stool occult blood: negative * Prior hospitalizations included in patient's chart; awaiting copy of report of GI workup Status: Chronic (7) Atrial fibrillation Assessment and Plan: * Cardiology (Dr. Little) covering for Dr. Lynch's patients * Continue home meds: Amiodarone 200 mg daily, Cardizem 240 mg daily * Patient is not on anticoagulation secondary to anemia * CHADS: 4 (DM, Age, HTN, CHF) * HASBLED:2 (Age and Renal Disease) Status: Acute (8) HTN (hypertension) Assessment and Plan: * Monitor vital signs * Restart Amiodarone 200mg PO daily and Cardizem 240mg PO daily Status: Chronic (9) Leukocytosis Assessment and Plan: * In the ED, order for dose of Zosyn and Vancomycin on 12/25 * Strep, legionella: negative and mycoplasma IgM: negative * Patient recently at the hospital within 90 days-->consideration for possible hospital acquired pneumonia * Patient does not meet sepsis critera (04/19: leukocytosis) * Start Zosyn 2.25 gr IV Q8H (active since 12/25/16) and Doxcycline 100mg IV Q 12hours (active since 12/25/16) * Blood Culture (12/25/16): no growth after 24 hours X2 * Urine culture (12/25/16): <1000 * Procalcitonin low Status: Acute (10) History of pulmonary fibrosis Assessment and Plan: * Consult: Dr Kessler (pulmonary fibrosis) on board * continue home meds: Pulmicort Flexhaler 90 mcg INH RQ12hr * f/u sputum culture-->pending * Start on Solumedrol 40mg IV Q 8 hours per pulmonary Status: Chronic (11) History of Gastritis Assessment and Plan: * Pepcid 20mg PO daily Status: Chronic (12) Diabetes 1.5, managed as type 2 Assessment and Plan: * Continue home meds: Glipizide 10 mg daily * daily Accuchecks QAC and HS * [id number]: 6.1 Status: Chronic (13) Hypothyroidism Status: Chronic * Order TSH in AM-->pending Status: Chronic (14) Hepatitis Assessment and Plan: * RUQ pain will f/u Amylase, lipase which are normal * LFTs are normal Status: Chronic (15) History of back pain Assessment and Plan: * held Magnesium oxide 400 mg BID; Tramadol-Acetaminophen 32.5-325 mg 2 tablets Q6hr Status: Acute (16) Lower extremity pain Assessment and Plan: * Held Magnesium oxide 400 mg BID; Tramadol-Acetaminophen 32.5-325 mg 2 tablets Q6hr Status: Acute (17) Prophylactic measure Assessment and Plan: * DVT: SCDs b/l; Heparin 5000 units subq 8 hours * GI: Omeprazole 20 mg daily * Monitor intake and output * Daily Weight Status: Acute Plan for bone marrow biospy-->tenatively tomorrow; will need port-cath placement Dialysis tomorrow per nephrology F/u chest xray Attending/Attestation - Attestation I have personally seen and examined this patient.: Yes I have fully participated in the care of the patient.: Yes I have reviewed all pertinent clinical information, including history, physical exam and plan: Yes
--- NOTE | 2016-12-28 09:51 | CP.PCM.PN ---
Subjective - Date & Time of Evaluation Date of Evaluation: 12/28/16 Time of Evaluation: 09:48 - Subjective Subjective: Less dyspneic s/p dialysis 12/27 remains anuric Ca at 11.4 with aredia IV await BM bx cannot give details of ROS Objective - Vital Signs/Intake and Output Vital Signs (last 24 hours): Temp Pulse Resp BP Pulse Ox 98.1 F 74 20 117/40 L 95 12/28/16 08:00 12/28/16 06:22 12/28/16 07:40 12/28/16 06:22 12/28/16 06:22 Intake and Output: 12/28/16 12/28/16 06:59 18:59 Intake Total 790 Balance 790 - Medications Medications: Current Medications Famotidine (Pepcid) 20 mg PO DAILY [facility] Last Admin: 12/27/16 09:30 Dose: 20 mg Ferrous Sulfate (Feosol) 325 mg PO DAILY [facility] Last Admin: 12/27/16 09:31 Dose: 325 mg Glipizide (Glucotrol) 10 mg PO DAILY [facility] Last Admin: 12/27/16 09:31 Dose: 10 mg Heparin Sodium (Porcine) (Heparin) 5,000 units SC Q8 [facility] Last Admin: 12/28/16 06:10 Dose: 5,000 units Piperacillin Sod/Tazobactam Sod (Zosyn 2.25 Gm Iv Premix) 2.25 gm in 50 mls @ 100 mls/hr IVPB Q8H [facility] Last Admin: 12/28/16 06:12 Dose: 100 mls/hr Doxycycline Hyclate 100 mg/ (Sodium Chloride) 100 mls @ 100 mls/hr IVPB Q12H [facility] Last Admin: 12/28/16 08:38 Dose: 100 mls/hr Insulin Human Regular (Novolin R) 0 unit SC ACHS [facility] PRN Reason: Protocol Last Admin: 12/28/16 08:00 Dose: 3 unit Levothyroxine Sodium (Synthroid) 75 mcg PO DAILY@0630 [facility] Last Admin: 12/28/16 06:10 Dose: 75 mcg Methylprednisolone (Solu-Medrol) 40 mg IVP Q8H [facility] Last Admin: 12/28/16 08:48 Dose: 40 mg Sevelamer Carbonate (Renvela) 0.8 gm PO TIDCC [facility] Last Admin: 12/28/16 08:37 Dose: 0.8 gm - Labs Labs: 12/28/16 06:02 12/28/16 06:02 PT 13.1 SECONDS (9.7-12.2) H 12/26/16 08:05 INR 1.2 12/26/16 08:05 APTT 39 SECONDS (21-34) H 12/26/16 08:05 - Constitutional Appears: No Acute Distress, Chronically Ill - Head Exam Head Exam: ATRAUMATIC, NORMAL INSPECTION - Eye Exam Eye Exam: EOMI, Normal appearance - Neck Exam Neck Exam: Normal Inspection. absent: Tenderness - Respiratory Exam Respiratory Exam: Clear to Ausculation Bilateral, NORMAL BREATHING PATTERN - Cardiovascular Exam Cardiovascular Exam: REGULAR RHYTHM, +S1 - GI/Abdominal Exam GI & Abdominal Exam: Soft. absent: Tenderness - Extremities Exam Extremities Exam: Normal Inspection, Pedal Edema. absent: Tenderness - Neurological Exam Neurological Exam: Altered, CN II-XII Intact - Skin Skin Exam: Dry, Warm Assessment and Plan - Assessment and Plan (Free Text) Assessment: hypercalcemia lytic lesions likely myeloma kidney disease Plan: dialysis MWF await BM bx monitor Ca- treat as needed
--- NOTE | 2016-12-28 10:01 | RAD ---
Chest x-ray single frontal view History: Pneumonia. Comparison: 12/27/2016 Findings: Lines and tubes in stable position. Persistent ill-defined reticular opacities throughout both lungs with more consolidative changes in the right upper to mid lung zone as well as the left lung base. Suggestion of a small left pleural effusion. Cardiomegaly. Calcification at the aortic knob. Degenerative changes in the spine and shoulders. Impression: Lines and tubes in stable position. Persistent ill-defined reticular opacities throughout both lungs with more consolidative changes in the right upper to mid lung zone as well as the left lung base. Suggestion of a small left pleural effusion. Cardiomegaly.
--- NOTE | 2016-12-28 11:43 | CP.CCUPN ---
<EdnaSunny love R - Last Filed: 12/28/16 20:13> CCU Subjective - Physician Review Subjective (Free Text): Patient seen and examined at bedside. Patient eating breakfast and breathing comfortably on nasal cannula with 100% sat. Patient alert, AAOx3, able to follow commands. She admits she is "feeling better". Patient currently denies any pain or discomfort. Denies chest pain, abdominal pain, fever, palpitations, nausea, vomiting. 12/28/16 14:34 CCU Objective - Vital Signs / Intake & Output Vital Signs (Last 4 hours): Vital Signs Temp Pulse Resp BP Pulse Ox 12/28/16 10:22 79 24 107/36 L 95 12/28/16 10:00 79 24 92 L 12/28/16 09:22 78 19 104/37 L 90 L 12/28/16 09:00 81 12 94 L 12/28/16 08:22 77 12 129/54 L 93 L 12/28/16 08:00 98.1 F 81 91 L Intake and Output (Last 8hrs): Intake & Output 12/27/16 12/28/16 12/28/16 22:59 06:59 14:59 Intake Total 615 420 300 Output Total 10 0 Balance 605 420 300 Weight 190 lb 14.725 oz Intake: Intake, IV Amount 375 300 0 Right Wrist 375 300 0 Oral 240 120 300 Output: Urine 10 Urethral (Morgan) 10 Stool 0 Emesis 0 - Physical Exam Head: Positive for: Atraumatic, Normocephalic Pupils: Positive for: PERRL Extroacular Muscles: Positive for: EOMI Mouth: Positive for: Moist Mucous Membranes Respiratory/Chest: Positive for: Clear to Auscultation Cardiovascular: Positive for: Regular Rate and Rhythm, Normal S1, S2 Abdomen: Positive for: Normal Bowel Sounds. Negative for: Tenderness, Distention Upper Extremity: Negative for: Edema Lower Extremity: Negative for: Edema Neurological: Positive for: CN II-XII Intact, Speech Normal Psychiatric: Positive for: Alert, Oriented x 3, Normal Insight - Medications Active Medications: Active Medications Generic Name Dose Route Start Last Admin Trade Name Freq PRN Reason Stop Dose Admin Famotidine 20 mg 12/27/16 10:00 12/27/16 09:30 Pepcid PO 20 mg DAILY MARIBETH Administration Ferrous Sulfate 325 mg 12/26/16 10:00 12/27/16 09:31 Feosol PO 325 mg DAILY MARIBETH Administration Glipizide 10 mg 12/27/16 10:00 12/27/16 09:31 Glucotrol PO 10 mg DAILY MARIBETH Administration Heparin Sodium (Porcine) 5,000 units 12/27/16 06:00 12/28/16 06:10 Heparin SC 5,000 units Q8 MARIBETH Administration Piperacillin Sod/Tazobactam Sod 2.25 gm in 50 mls @ 100 mls/hr 12/25/16 23:00 12/28/16 06:12 Zosyn 2.25 Gm Iv Premix IVPB 100 mls/hr Q8H MARIBETH Administration Doxycycline Hyclate 100 mg/ 100 mls @ 100 mls/hr 12/25/16 21:00 12/28/16 08: 38 Sodium Chloride IVPB 100 mls/hr Q12H MARIBETH Administration Insulin Human Regular 0 unit 12/26/16 16:30 12/28/16 08:00 Novolin R SC 3 unit ACHS MARIBETH Administration Protocol Levothyroxine Sodium 75 mcg 12/26/16 06:30 12/28/16 06:10 Synthroid PO 75 mcg DAILY@0630 MARIBETH Administration Methylprednisolone 40 mg 12/27/16 17:45 12/28/16 08:48 Solu-Medrol IVP 40 mg Q8H MARIBETH Administration Sevelamer Carbonate 0.8 gm 12/26/16 12:00 12/28/16 08:37 Renvela PO 0.8 gm TIDCC MARIBETH Administration - Patient Studies Lab Studies: Microbiology Studies 12/25/16 15:45 Blood Culture - Preliminary Blood NO GROWTH AFTER 48 HOURS 12/25/16 16:10 Blood Culture - Preliminary Blood NO GROWTH AFTER 48 HOURS 12/25/16 Unknown Urine Culture - Final Urine No Growth (<1,000 CFU/ML) Lab Studies 12/28/16 12/28/16 12/28/16 Range/Units 07:51 06:02 06:02 WBC 16.7 H (4.8-10.8) K/uL RBC 2.22 L (3.80-5.20) Mil/uL Hgb 7.2 L (11.0-16.0) g/dL Hct 21.5 L (34.0-47.0) % MCV 96.8 (81.0-99.0) fL MCH 32.5 H (27.0-31.0) pg MCHC 33.6 (33.0-37.0) g/dL RDW 16.5 H (11.5-14.5) % Plt Count 200 (130-400) K/uL MPV 8.0 (7.2-11.7) fL Neut % (Auto) 92.4 H (50.0-75.0) % Lymph % (Auto) 5.2 L (20.0-40.0) % [place] % (Auto) 1.9 (0.0-10.0) % Eos % (Auto) 0.2 (0.0-4.0) % Baso % (Auto) 0.3 (0.0-2.0) % Neut # 15.4 H (1.8-7.0) K/uL Lymph # 0.9 L (1.0-4.3) K/uL [place] # 0.3 (0.0-0.8) K/uL Eos # 0.0 (0.0-0.7) K/uL Baso # 0.0 (0.0-0.2) K/uL Neutrophils % (Manual) 90 H (50-75) % Band Neutrophils % 2 (0-2) % Lymphocytes % (Manual) 7 L (20-40) % Monocytes % (Manual) 1 (0-10) % Nucleated RBC % 1 H (0-0) % Platelet Estimate Normal (NORMAL) Large Platelets Present Hypochromasia (manual) Moderate Poikilocytosis (manual Slight Basophilic Stippling Slight Anisocytosis (manual) Slight Microcytosis (manual) Slight Target Cells Slight Tear Drop Cells Slight Sodium 138 (132-148) mmol/L Potassium 4.6 (3.6-5.2) mmol/L Chloride 96 L (98-107) mmol/L Carbon Dioxide 26 (22-30) mmol/L Anion Gap 21 H (10-20) BUN 51 H (7-17) mg/dL Creatinine 4.2 H (0.7-1.2) MG/DL Est GFR ( Amer) 12 Est GFR (Non-Af Amer) 10 POC Glucose (mg/dL) 286 H (65-110) mg/dL Random Glucose 234 H (65-105) mg/dL Calcium 11.4 H (8.6-10.4) mg/dl Ionized Calcium (4.80-5.60) mg/dL Phosphorus 6.9 H (2.5-4.5) mg/dL Magnesium 2.1 (1.6-2.3) mg/dL Total Bilirubin 0.4 (0.2-1.3) mg/dL AST 20 (14-36) U/L ALT 30 (9-52) U/L Alkaline Phosphatase 49 (38-126) U/L Total Protein 6.1 L (6.3-8.3) g/dL Albumin 3.3 L (3.5-5.0) g/dL Albumin (PEP) (3.8-4.8) g/dL Globulin 2.8 (2.2-3.9) gm/dL Albumin/Globulin Ratio 1.2 (1.0-2.1) Thmcq-5-Pdntgkbzp (0.2-0.3) g/dL Kgcdv-8-Udgoxzfgs (0.5-0.9) g/dL Vsot-1-Tazuiyly (0.4-0.6) g/dL Utlp-8-Bdywzkcd (0.2-0.5) g/dL Gamma Globulins (0.8-1.7) g/dL Abnorm Protein Band 1 (None Detected) g/dL Abnorm Protein Band 2 Abnorm Protein Band 3 Angiotensin Convert Enz (9-67) U/L Procalcitonin (0.19-0.49) NG/ML PTH Intact Whole Molec (14-64) pg/mL Urine Creatinine g/L Ur Creatinine 24 Hour (0.63-2.50) g/24 h Ur Total Protein 24 Hr (<150) mg/24 h Protein/Creat Ratio 24h (</=84) mg/g creat Urine Total Protein (50-240) mg/L SEUN & SPEP Interp 12/27/16 12/27/16 12/27/16 Range/Units 21:39 16:19 11:38 WBC (4.8-10.8) K/uL RBC (3.80-5.20) Mil/uL Hgb (11.0-16.0) g/dL Hct (34.0-47.0) % MCV (81.0-99.0) fL MCH (27.0-31.0) pg MCHC (33.0-37.0) g/dL RDW (11.5-14.5) % Plt Count (130-400) K/uL MPV (7.2-11.7) fL Neut % (Auto) (50.0-75.0) % Lymph % (Auto) (20.0-40.0) % [place] % (Auto) (0.0-10.0) % Eos % (Auto) (0.0-4.0) % Baso % (Auto) (0.0-2.0) % Neut # (1.8-7.0) K/uL Lymph # (1.0-4.3) K/uL [place] # (0.0-0.8) K/uL Eos # (0.0-0.7) K/uL Baso # (0.0-0.2) K/uL Neutrophils % (Manual) (50-75) % Band Neutrophils % (0-2) % Lymphocytes % (Manual) (20-40) % Monocytes % (Manual) (0-10) % Nucleated RBC % (0-0) % Platelet Estimate (NORMAL) Large Platelets Hypochromasia (manual) Poikilocytosis (manual Basophilic Stippling Anisocytosis (manual) Microcytosis (manual) Target Cells Tear Drop Cells Sodium (132-148) mmol/L Potassium (3.6-5.2) mmol/L Chloride (98-107) mmol/L Carbon Dioxide (22-30) mmol/L Anion Gap (10-20) BUN (7-17) mg/dL Creatinine (0.7-1.2) MG/DL Est GFR ( Amer) Est GFR (Non-Af Amer) POC Glucose (mg/dL) 185 H 123 H 148 H (65-110) mg/dL Random Glucose (65-105) mg/dL Calcium (8.6-10.4) mg/dl Ionized Calcium (4.80-5.60) mg/dL Phosphorus (2.5-4.5) mg/dL Magnesium (1.6-2.3) mg/dL Total Bilirubin (0.2-1.3) mg/dL AST (14-36) U/L ALT (9-52) U/L Alkaline Phosphatase (38-126) U/L Total Protein (6.3-8.3) g/dL Albumin (3.5-5.0) g/dL Albumin (PEP) (3.8-4.8) g/dL Globulin (2.2-3.9) gm/dL Albumin/Globulin Ratio (1.0-2.1) Zluen-0-Cymbxadyv (0.2-0.3) g/dL Elwpj-4-Alhijsnvg (0.5-0.9) g/dL Nins-3-Onamdccg (0.4-0.6) g/dL Djty-6-Tfyyhuna (0.2-0.5) g/dL Gamma Globulins (0.8-1.7) g/dL Abnorm Protein Band 1 (None Detected) g/dL Abnorm Protein Band 2 Abnorm Protein Band 3 Angiotensin Convert Enz (9-67) U/L Procalcitonin (0.19-0.49) NG/ML PTH Intact Whole Molec (14-64) pg/mL Urine Creatinine g/L Ur Creatinine 24 Hour (0.63-2.50) g/24 h Ur Total Protein 24 Hr (<150) mg/24 h Protein/Creat Ratio 24h (</=84) mg/g creat Urine Total Protein (50-240) mg/L SEUN & SPEP Interp 12/27/16 12/27/16 12/27/16 Range/Units 09:16 08:16 07:25 WBC (4.8-10.8) K/uL RBC (3.80-5.20) Mil/uL Hgb (11.0-16.0) g/dL Hct (34.0-47.0) % MCV (81.0-99.0) fL MCH (27.0-31.0) pg MCHC (33.0-37.0) g/dL RDW (11.5-14.5) % Plt Count (130-400) K/uL MPV (7.2-11.7) fL Neut % (Auto) (50.0-75.0) % Lymph % (Auto) (20.0-40.0) % [place] % (Auto) (0.0-10.0) % Eos % (Auto) (0.0-4.0) % Baso % (Auto) (0.0-2.0) % Neut # (1.8-7.0) K/uL Lymph # (1.0-4.3) K/uL [place] # (0.0-0.8) K/uL Eos # (0.0-0.7) K/uL Baso # (0.0-0.2) K/uL Neutrophils % (Manual) (50-75) % Band Neutrophils % (0-2) % Lymphocytes % (Manual) (20-40) % Monocytes % (Manual) (0-10) % Nucleated RBC % (0-0) % Platelet Estimate (NORMAL) Large Platelets Hypochromasia (manual) Poikilocytosis (manual Basophilic Stippling Anisocytosis (manual) Microcytosis (manual) Target Cells Tear Drop Cells Sodium (132-148) mmol/L Potassium (3.6-5.2) mmol/L Chloride (98-107) mmol/L Carbon Dioxide (22-30) mmol/L Anion Gap (10-20) BUN (7-17) mg/dL Creatinine (0.7-1.2) MG/DL Est GFR ( Amer) Est GFR (Non-Af Amer) POC Glucose (mg/dL) (65-110) mg/dL Random Glucose (65-105) mg/dL Calcium (8.6-10.4) mg/dl Ionized Calcium (4.80-5.60) mg/dL Phosphorus (2.5-4.5) mg/dL Magnesium (1.6-2.3) mg/dL Total Bilirubin (0.2-1.3) mg/dL AST (14-36) U/L ALT (9-52) U/L Alkaline Phosphatase (38-126) U/L Total Protein (6.3-8.3) g/dL Albumin (3.5-5.0) g/dL Albumin (PEP) (3.8-4.8) g/dL Globulin (2.2-3.9) gm/dL Albumin/Globulin Ratio (1.0-2.1) Rjnhe-1-Gcrinifek (0.2-0.3) g/dL Tctue-0-Cfgizkiva (0.5-0.9) g/dL Oxmw-1-Nlmoosgy (0.4-0.6) g/dL Zzsy-9-Wopkcixt (0.2-0.5) g/dL Gamma Globulins (0.8-1.7) g/dL Abnorm Protein Band 1 (None Detected) g/dL Abnorm Protein Band 2 Abnorm Protein Band 3 Angiotensin Convert Enz (9-67) U/L Procalcitonin 0.22 (0.19-0.49) NG/ML PTH Intact Whole Molec 11 L (14-64) pg/mL Urine Creatinine 0.70 g/L Ur Creatinine 24 Hour 0.59 L (0.63-2.50) g/24 h Ur Total Protein 24 Hr 2108 H (<150) mg/24 h Protein/Creat Ratio 24h 3553 H (</=84) mg/g creat Urine Total Protein 2480 H (50-240) mg/L SEUN & SPEP Interp 12/26/16 12/26/16 12/26/16 Range/Units 13:56 13:56 13:56 WBC (4.8-10.8) K/uL RBC (3.80-5.20) Mil/uL Hgb (11.0-16.0) g/dL Hct (34.0-47.0) % MCV (81.0-99.0) fL MCH (27.0-31.0) pg MCHC (33.0-37.0) g/dL RDW (11.5-14.5) % Plt Count (130-400) K/uL MPV (7.2-11.7) fL Neut % (Auto) (50.0-75.0) % Lymph % (Auto) (20.0-40.0) % [place] % (Auto) (0.0-10.0) % Eos % (Auto) (0.0-4.0) % Baso % (Auto) (0.0-2.0) % Neut # (1.8-7.0) K/uL Lymph # (1.0-4.3) K/uL [place] # (0.0-0.8) K/uL Eos # (0.0-0.7) K/uL Baso # (0.0-0.2) K/uL Neutrophils % (Manual) (50-75) % Band Neutrophils % (0-2) % Lymphocytes % (Manual) (20-40) % Monocytes % (Manual) (0-10) % Nucleated RBC % (0-0) % Platelet Estimate (NORMAL) Large Platelets Hypochromasia (manual) Poikilocytosis (manual Basophilic Stippling Anisocytosis (manual) Microcytosis (manual) Target Cells Tear Drop Cells Sodium (132-148) mmol/L Potassium (3.6-5.2) mmol/L Chloride (98-107) mmol/L Carbon Dioxide (22-30) mmol/L Anion Gap (10-20) BUN (7-17) mg/dL Creatinine (0.7-1.2) MG/DL Est GFR ( Amer) Est GFR (Non-Af Amer) POC Glucose (mg/dL) (65-110) mg/dL Random Glucose (65-105) mg/dL Calcium (8.6-10.4) mg/dl Ionized Calcium 6.7 H (4.80-5.60) mg/dL Phosphorus (2.5-4.5) mg/dL Magnesium (1.6-2.3) mg/dL Total Bilirubin (0.2-1.3) mg/dL AST (14-36) U/L ALT (9-52) U/L Alkaline Phosphatase (38-126) U/L Total Protein (6.3-8.3) g/dL Albumin (3.5-5.0) g/dL Albumin (PEP) (3.8-4.8) g/dL Globulin (2.2-3.9) gm/dL Albumin/Globulin Ratio (1.0-2.1) Yvsww-5-Jdelymwfg (0.2-0.3) g/dL Lrzfx-3-Khxidpmwx (0.5-0.9) g/dL Ohnw-2-Tusahmnt (0.4-0.6) g/dL Gxar-4-Lybacnnk (0.2-0.5) g/dL Gamma Globulins (0.8-1.7) g/dL Abnorm Protein Band 1 (None Detected) g/dL Abnorm Protein Band 2 Abnorm Protein Band 3 Angiotensin Convert Enz 28 (9-67) U/L Procalcitonin (0.19-0.49) NG/ML PTH Intact Whole Molec 14 (14-64) pg/mL Urine Creatinine g/L Ur Creatinine 24 Hour (0.63-2.50) g/24 h Ur Total Protein 24 Hr (<150) mg/24 h Protein/Creat Ratio 24h (</=84) mg/g creat Urine Total Protein (50-240) mg/L SEUN & SPEP Interp 12/25/16 Range/Units 21:39 WBC (4.8-10.8) K/uL RBC (3.80-5.20) Mil/uL Hgb (11.0-16.0) g/dL Hct (34.0-47.0) % MCV (81.0-99.0) fL MCH (27.0-31.0) pg MCHC (33.0-37.0) g/dL RDW (11.5-14.5) % Plt Count (130-400) K/uL MPV (7.2-11.7) fL Neut % (Auto) (50.0-75.0) % Lymph % (Auto) (20.0-40.0) % [place] % (Auto) (0.0-10.0) % Eos % (Auto) (0.0-4.0) % Baso % (Auto) (0.0-2.0) % Neut # (1.8-7.0) K/uL Lymph # (1.0-4.3) K/uL [place] # (0.0-0.8) K/uL Eos # (0.0-0.7) K/uL Baso # (0.0-0.2) K/uL Neutrophils % (Manual) (50-75) % Band Neutrophils % (0-2) % Lymphocytes % (Manual) (20-40) % Monocytes % (Manual) (0-10) % Nucleated RBC % (0-0) % Platelet Estimate (NORMAL) Large Platelets Hypochromasia (manual) Poikilocytosis (manual Basophilic Stippling Anisocytosis (manual) Microcytosis (manual) Target Cells Tear Drop Cells Sodium (132-148) mmol/L Potassium (3.6-5.2) mmol/L Chloride (98-107) mmol/L Carbon Dioxide (22-30) mmol/L Anion Gap (10-20) BUN (7-17) mg/dL Creatinine (0.7-1.2) MG/DL Est GFR ( Amer) Est GFR (Non-Af Amer) POC Glucose (mg/dL) (65-110) mg/dL Random Glucose (65-105) mg/dL Calcium (8.6-10.4) mg/dl Ionized Calcium (4.80-5.60) mg/dL Phosphorus (2.5-4.5) mg/dL Magnesium (1.6-2.3) mg/dL Total Bilirubin (0.2-1.3) mg/dL AST (14-36) U/L ALT (9-52) U/L Alkaline Phosphatase (38-126) U/L Total Protein (6.3-8.3) g/dL Albumin (3.5-5.0) g/dL Albumin (PEP) 3.0 L (3.8-4.8) g/dL Globulin (2.2-3.9) gm/dL Albumin/Globulin Ratio (1.0-2.1) Fpybo-7-Kuumpdiqt 0.6 H (0.2-0.3) g/dL Bwxxo-8-Abpsbjtwm 1.0 H (0.5-0.9) g/dL Acwv-4-Hubwrsfr 0.3 L (0.4-0.6) g/dL Eojy-3-Lfceolky 0.3 (0.2-0.5) g/dL Gamma Globulins 0.7 L (0.8-1.7) g/dL Abnorm Protein Band 1 0.23 H (None Detected) g/dL Abnorm Protein Band 2 TEST NOT PERFORMED Abnorm Protein Band 3 TEST NOT PERFORMED Angiotensin Convert Enz (9-67) U/L Procalcitonin (0.19-0.49) NG/ML PTH Intact Whole Molec (14-64) pg/mL Urine Creatinine g/L Ur Creatinine 24 Hour (0.63-2.50) g/24 h Ur Total Protein 24 Hr (<150) mg/24 h Protein/Creat Ratio 24h (</=84) mg/g creat Urine Total Protein (50-240) mg/L SEUN & SPEP Interp See note Laboratory Results - last 24 hr 12/25/16 12/26/16 12/26/16 21:39 13:56 13:56 WBC RBC Hgb Hct MCV MCH MCHC RDW Plt Count MPV Neut % (Auto) Lymph % (Auto) [place] % (Auto) Eos % (Auto) Baso % (Auto) Neut # Lymph # [place] # Eos # Baso # Neutrophils % (Manual) Band Neutrophils % Lymphocytes % (Manual) Monocytes % (Manual) Nucleated RBC % Platelet Estimate Large Platelets Hypochromasia (manual) Poikilocytosis (manual Basophilic Stippling Anisocytosis (manual) Microcytosis (manual) Target Cells Tear Drop Cells Sodium Potassium Chloride Carbon Dioxide Anion Gap BUN Creatinine Est GFR ( Amer) Est GFR (Non-Af Amer) POC Glucose (mg/dL) Random Glucose Calcium Ionized Calcium Phosphorus Magnesium Total Bilirubin AST ALT Alkaline Phosphatase Total Protein Albumin Albumin (PEP) 3.0 L Globulin Albumin/Globulin Ratio Uchqp-2-Osbycqkwh 0.6 H Cnksz-1-Aahsomdhq 1.0 H Nzhf-5-Pkhwrafc 0.3 L Rzqa-8-Fvjwnwdl 0.3 Gamma Globulins 0.7 L Abnorm Protein Band 1 0.23 H Abnorm Protein Band 2 TEST NOT PERFORMED Abnorm Protein Band 3 TEST NOT PERFORMED Angiotensin Convert Enz 28 Procalcitonin PTH Intact Whole Molec 14 Urine Creatinine Ur Creatinine 24 Hour Ur Total Protein 24 Hr Protein/Creat Ratio 24h Urine Total Protein SEUN & SPEP Interp See note 12/26/16 12/27/16 12/27/16 13:56 07:25 08:16 WBC RBC Hgb Hct MCV MCH MCHC RDW Plt Count MPV Neut % (Auto) Lymph % (Auto) [place] % (Auto) Eos % (Auto) Baso % (Auto) Neut # Lymph # [place] # Eos # Baso # Neutrophils % (Manual) Band Neutrophils % Lymphocytes % (Manual) Monocytes % (Manual) Nucleated RBC % Platelet Estimate Large Platelets Hypochromasia (manual) Poikilocytosis (manual Basophilic Stippling Anisocytosis (manual) Microcytosis (manual) Target Cells Tear Drop Cells Sodium Potassium Chloride Carbon Dioxide Anion Gap BUN Creatinine Est GFR ( Amer) Est GFR (Non-Af Amer) POC Glucose (mg/dL) Random Glucose Calcium Ionized Calcium 6.7 H Phosphorus Magnesium Total Bilirubin AST ALT Alkaline Phosphatase Total Protein Albumin Albumin (PEP) Globulin Albumin/Globulin Ratio Qrtss-8-Oeijmryoh Gkmaz-3-Skuecfawj Kclw-6-Ohowbfjc Zjnh-6-Reznybcd Gamma Globulins Abnorm Protein Band 1 Abnorm Protein Band 2 Abnorm Protein Band 3 Angiotensin Convert Enz Procalcitonin PTH Intact Whole Molec 11 L Urine Creatinine 0.70 Ur Creatinine 24 Hour 0.59 L Ur Total Protein 24 Hr 2108 H Protein/Creat Ratio 24h 3553 H Urine Total Protein 2480 H SEUN & SPEP Interp 12/27/16 12/27/16 12/27/16 09:16 11:38 16:19 WBC RBC Hgb Hct MCV MCH MCHC RDW Plt Count MPV Neut % (Auto) Lymph % (Auto) [place] % (Auto) Eos % (Auto) Baso % (Auto) Neut # Lymph # [place] # Eos # Baso # Neutrophils % (Manual) Band Neutrophils % Lymphocytes % (Manual) Monocytes % (Manual) Nucleated RBC % Platelet Estimate Large Platelets Hypochromasia (manual) Poikilocytosis (manual Basophilic Stippling Anisocytosis (manual) Microcytosis (manual) Target Cells Tear Drop Cells Sodium Potassium Chloride Carbon Dioxide Anion Gap BUN Creatinine Est GFR ( Amer) Est GFR (Non-Af Amer) POC Glucose (mg/dL) 148 H 123 H Random Glucose Calcium Ionized Calcium Phosphorus Magnesium Total Bilirubin AST ALT Alkaline Phosphatase Total Protein Albumin Albumin (PEP) Globulin Albumin/Globulin Ratio Irzvp-0-Tkvjptirj Uhoxu-9-Sxrabvfmm Vyej-0-Yokrwrga Dess-9-Pmodvvcn Gamma Globulins Abnorm Protein Band 1 Abnorm Protein Band 2 Abnorm Protein Band 3 Angiotensin Convert Enz Procalcitonin 0.22 PTH Intact Whole Molec Urine Creatinine Ur Creatinine 24 Hour Ur Total Protein 24 Hr Protein/Creat Ratio 24h Urine Total Protein SEUN & SPEP Interp 12/27/16 12/28/16 12/28/16 21:39 06:02 06:02 WBC 16.7 H RBC 2.22 L Hgb 7.2 L Hct 21.5 L MCV 96.8 MCH 32.5 H MCHC 33.6 RDW 16.5 H Plt Count 200 MPV 8.0 Neut % (Auto) 92.4 H Lymph % (Auto) 5.2 L [place] % (Auto) 1.9 Eos % (Auto) 0.2 Baso % (Auto) 0.3 Neut # 15.4 H Lymph # 0.9 L [place] # 0.3 Eos # 0.0 Baso # 0.0 Neutrophils % (Manual) 90 H Band Neutrophils % 2 Lymphocytes % (Manual) 7 L Monocytes % (Manual) 1 Nucleated RBC % 1 H Platelet Estimate Normal Large Platelets Present Hypochromasia (manual) Moderate Poikilocytosis (manual Slight Basophilic Stippling Slight Anisocytosis (manual) Slight Microcytosis (manual) Slight Target Cells Slight Tear Drop Cells Slight Sodium 138 Potassium 4.6 Chloride 96 L Carbon Dioxide 26 Anion Gap 21 H BUN 51 H Creatinine 4.2 H Est GFR ( Amer) 12 Est GFR (Non-Af Amer) 10 POC Glucose (mg/dL) 185 H Random Glucose 234 H Calcium 11.4 H Ionized Calcium Phosphorus 6.9 H Magnesium 2.1 Total Bilirubin 0.4 AST 20 ALT 30 Alkaline Phosphatase 49 Total Protein 6.1 L Albumin 3.3 L Albumin (PEP) Globulin 2.8 Albumin/Globulin Ratio 1.2 Amrrc-8-Omgthmbed Ijzgd-8-Jsjydwbhu Syhy-4-Nhuipiky Yrpb-2-Fhmggsba Gamma Globulins Abnorm Protein Band 1 Abnorm Protein Band 2 Abnorm Protein Band 3 Angiotensin Convert Enz Procalcitonin PTH Intact Whole Molec Urine Creatinine Ur Creatinine 24 Hour Ur Total Protein 24 Hr Protein/Creat Ratio 24h Urine Total Protein SEUN & SPEP Interp 12/28/16 07:51 WBC RBC Hgb Hct MCV MCH MCHC RDW Plt Count MPV Neut % (Auto) Lymph % (Auto) [place] % (Auto) Eos % (Auto) Baso % (Auto) Neut # Lymph # [place] # Eos # Baso # Neutrophils % (Manual) Band Neutrophils % Lymphocytes % (Manual) Monocytes % (Manual) Nucleated RBC % Platelet Estimate Large Platelets Hypochromasia (manual) Poikilocytosis (manual Basophilic Stippling Anisocytosis (manual) Microcytosis (manual) Target Cells Tear Drop Cells Sodium Potassium Chloride Carbon Dioxide Anion Gap BUN Creatinine Est GFR ( Amer) Est GFR (Non-Af Amer) POC Glucose (mg/dL) 286 H Random Glucose Calcium Ionized Calcium Phosphorus Magnesium Total Bilirubin AST ALT Alkaline Phosphatase Total Protein Albumin Albumin (PEP) Globulin Albumin/Globulin Ratio Qggux-7-Rbzdeyxbi Ivrsq-9-Zcqiacvii Ptrb-6-Tctzixbg Sirx-8-Jxbdxhaf Gamma Globulins Abnorm Protein Band 1 Abnorm Protein Band 2 Abnorm Protein Band 3 Angiotensin Convert Enz Procalcitonin PTH Intact Whole Molec Urine Creatinine Ur Creatinine 24 Hour Ur Total Protein 24 Hr Protein/Creat Ratio 24h Urine Total Protein SEUN & SPEP Interp EKG/Cardiology Studies: Cardiology / EKG Studies 12/28/16 10:12 EKG [ELECTROCARDIOGRAM] Stat Comment: Mode Of Transportation: Reason For Exam: afib Fingerstick Blood Sugar Results: 286 Review of Systems - Constitutional Constitutional: Weakness. absent: Fever, Chills, Sweats - Cardiovascular Cardiovascular: Leg Edema - Respiratory Respiratory: UNREMARKABLE - Gastrointestinal Gastrointestinal: UNREMARKABLE - Genitourinary Genitourinary: UNREMARKABLE Critical Care Progress Note - Nutrition Nutrition: Nutrition Category Date Time Status Renal Diet [DIET] Diets 12/25/16 Dinner Active Assessment/Plan (1) CHF exacerbation Current Visit: No Status: Acute (2) Acute kidney injury superimposed on chronic kidney disease Current Visit: No Status: Acute (3) Anemia Current Visit: No Status: Chronic (4) Atrial fibrillation with controlled ventricular response Current Visit: No Status: Acute (5) HTN (hypertension) Current Visit: No Status: Chronic (6) Leucocytosis Current Visit: No Status: Acute (7) History of asthma Current Visit: Yes Status: Acute (8) Gastritis Current Visit: No Status: Acute (9) Diabetes 1.5, 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: Chronic (10) Hypothyroidism Current Visit: No Status: Chronic (11) Hepatitis Current Visit: Yes Status: Acute (12) History of back pain Current Visit: Yes Status: Acute (13) Lower extremity pain Current Visit: Yes Status: Acute (14) Prophylactic measure Current Visit: No Status: Acute - Assessment and Plan (Free Text) Assessment: 81 year old female with PMHx of CHF, A-Fib, HTN, Anemia, DM, hypothyroidism, Gastritis, Hepatitis C (treated) presenting with SOB, shoulder pain and Acute Renal Failure Today 12/28/16: Patient to have bone marrow biopsy tomorrow 12/29/[address] Martinez. Patient refused BiPAP and placed on high flow oxygen. Cardio: CHF, A-Fib, HTN; hx of cardiac cath w/ normal findings 03/2015 - 06/28/16 Echo showed EF of 83% with borderline concentric LVH. Mild-moderate mitral regurgitation - 12/01 EKG: normal, NSR - ProBNP today: 17204 - 12/27 Echo: LVEF is 60%, moderate left ventricular diastolic dysfunction. Mitral valve is calcicfied and displays decreased opening. Severe pulmonary hypertension. - f/u new EKG - Cardiology, Dr Little, consulted - - Continue home med Amiodarone 200 mg daily - Continue home med Cardizem 240 mg daily Nephro: Acute Renal Failure - s/p permacath placement (12/25) with plan for schedule HD on MWF - Nephrology Dr. Bill consulted - 12/25 Urinalysis: +leuk esterase, 2+ protein, + Wbc and + RBC - 12/25 urine culture: negative - 12/25 lambda light chain elevated 1021, kappa light chain normal 17.5 - 12/25 24 hr urine Creatnine 0.59, Protein 2108 - Calcium levels downtrending - f/u SPEP, IPEP, 24 hr urine UPEP, urine IPEP - Previous SPEP (09/27 and 12/02): M-spike in gamma globulin region ID: Elevated WBCs; - procalcitonin wnl; afebrile - Doxycycline 100mg iv q12 - ur cx negative, blood cx negative, legionella urine Ag negative, mycoplasma pneumoniae IgM negative Heme: Anemia - s/p transfusion of 1u pRBC - monitor CBC daily - Continue home meds Ferrous sulfate 325 mg daily - 12/25 CT abdomen & pelvis: 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 [place] [facility] [place] 12[place]7 [place] - Plan for bone marrow biopsy on Sunday - Consult hematology Oncology, Dr. Juan Almeida: h/o asthma - continue home meds: Pulmicort Flexhaler 90 mcg INH RQ12hr - f/u sputum culture Endo: DM, hypothyroidism - Continue home meds: Glipizide 10 mg daily; Levothyroxine 75 mcg daily - Start low ISS protocol - daily Accuchecks ACHS GI: Gastritis, Hepatitis C (treated) - Continue home meds Omeprazole 20 mg daily - RUQ pain -> Amylase wnl, lipase wnl - 12/22 stool occult blood: negative Msk: generalized LE pain, h/o back pain - Continue home meds: Magnesium oxide 400 mg BID; Tramadol-Acetaminophen 32.5- 325 mg 2 tablets Q6hr - Lidoderm patch 5% daily prn Prophylaxis: DVT: SCD GI: Omeprazole 20 mg daily PT/OT eval <[email or web address] M - Last Filed: 12/30/16 10:39> CCU Objective - Vital Signs / Intake & Output Vital Signs (Last 4 hours): Vital Signs Temp Pulse Resp BP Pulse Ox 12/30/16 07:54 97.5 F L 12/30/16 07:41 20 12/30/16 07:00 75 17 93 L 12/30/16 06:26 75 26 H 118/40 L 99 Intake and Output (Last 8hrs): Intake & Output 12/29/16 12/30/16 12/30/16 22:59 06:59 14:59 Intake Total 710 50 100 Output Total 0 0 0 Balance 710 50 100 Weight 198 lb 3.129 oz Intake: Intake, IV Amount 250 Right Wrist 250 Oral 460 50 100 Output: Urine 0 0 0 Urine, Voided 0 0 0 Stool 0 0 0 Other: # Voids Urine, Voided 1 - Medications Active Medications: Active Medications Generic Name Dose Route Start Last Admin Trade Name Freq PRN Reason Stop Dose Admin Famotidine 20 mg 12/27/16 10:00 12/29/16 09:10 Pepcid PO Not Given DAILY [facility] Ferrous Sulfate 325 mg 12/26/16 10:00 12/29/16 09:08 Feosol PO Not Given DAILY [facility] Glipizide 10 mg 12/27/16 10:00 12/29/16 09:09 Glucotrol PO Not Given DAILY [facility] Heparin Sodium (Porcine) 5,000 units 12/30/16 10:00 Heparin SC Q12 [facility] Piperacillin Sod/Tazobactam Sod 2.25 gm in 50 mls @ 100 mls/hr 12/25/16 23:00 12/30/16 06:00 Zosyn 2.25 Gm Iv Premix IVPB 100 mls/hr Q8H MAR[facility]ETH Administration Doxycycline Hyclate 100 mg/ 100 mls @ 100 mls/hr 12/25/16 21:00 12/30/16 08: 38 Sodium Chloride IVPB 100 mls/hr Q12H MARIBETH Administration Insulin Human Regular 0 unit 12/26/16 16:30 12/30/16 08:12 Novolin R SC 3 unit ACHS MARIBETH Administration Protocol Levothyroxine Sodium 75 mcg 12/26/16 06:30 12/30/16 05:51 Synthroid PO 75 mcg DAILY@0630 MAR[facility]ETH Administration Methylprednisolone 40 mg 12/27/16 17:45 12/30/16 02:00 Solu-Medrol IVP 40 mg Q8H MAR[facility]ETH Administration Rosuvastatin Calcium 5 mg 12/30/16 22:00 Crestor PO HS MARIBETH Sevelamer Carbonate 1,600 mg 12/30/16 08:00 12/30/16 08:14 Renvela PO 1,600 mg TIDCC MARIBETH Administration - Patient Studies Lab Studies: Microbiology Studies 12/25/16 15:45 Blood Culture - Preliminary Blood NO GROWTH AFTER 4 DAYS 12/25/16 16:10 Blood Culture - Preliminary Blood NO GROWTH AFTER 4 DAYS Lab Studies 12/30/16 12/30/16 12/30/16 Range/Units 08:01 06:52 06:52 WBC 19.0 H (4.8-10.8) K/uL RBC 2.06 L (3.80-5.20) Mil/uL Hgb 6.5 L* (11.0-16.0) g/dL Hct 19.9 L (34.0-47.0) % MCV 96.4 (81.0-99.0) fL MCH 31.6 H (27.0-31.0) pg MCHC 32.8 L (33.0-37.0) g/dL RDW 16.5 H (11.5-14.5) % Plt Count 227 (130-400) K/uL MPV 8.4 (7.2-11.7) fL Neut % (Auto) 93.3 H (50.0-75.0) % Lymph % (Auto) 3.8 L (20.0-40.0) % [place] % (Auto) 2.8 (0.0-10.0) % Eos % (Auto) 0.0 (0.0-4.0) % Baso % (Auto) 0.1 (0.0-2.0) % Neut # 17.8 H (1.8-7.0) K/uL Lymph # 0.7 L (1.0-4.3) K/uL [place] # 0.5 (0.0-0.8) K/uL Eos # 0.0 (0.0-0.7) K/uL Baso # 0.0 (0.0-0.2) K/uL Sodium 135 (132-148) mmol/L Potassium 5.0 (3.6-5.2) mmol/L Chloride 91 L (98-107) mmol/L Carbon Dioxide 25 (22-30) mmol/L Anion Gap 24 H (10-20) BUN 79 H (7-17) mg/dL Creatinine 4.0 H (0.7-1.2) MG/DL Est GFR ( Amer) 13 Est GFR (Non-Af Amer) 11 POC Glucose (mg/dL) 285 H (65-110) mg/dL Random Glucose 232 H (65-105) mg/dL Calcium 9.0 (8.6-10.4) mg/dl Phosphorus 7.8 H (2.5-4.5) mg/dL Magnesium 2.0 (1.6-2.3) mg/dL Total Bilirubin 0.6 (0.2-1.3) mg/dL AST 16 (14-36) U/L ALT 27 (9-52) U/L Alkaline Phosphatase 54 (38-126) U/L Total Protein 5.9 L (6.3-8.3) g/dL Albumin 3.3 L (3.5-5.0) g/dL Globulin 2.6 (2.2-3.9) gm/dL Albumin/Globulin Ratio 1.3 Fwihq-1-Giksgzesg Relative % Cuipb-3-Ioxjrpiyy Relative % Beta Globulins Relative % Gamma Globulins Relative % PTH Related Protein (14-27) pg/mL Urine Albumin (PEP) Relative % Ur Protein Fractions 12/29/16 12/29/16 12/29/16 Range/Units 21:17 16:18 12:06 WBC (4.8-10.8) K/uL RBC (3.80-5.20) Mil/uL Hgb (11.0-16.0) g/dL Hct (34.0-47.0) % MCV (81.0-99.0) fL MCH (27.0-31.0) pg MCHC (33.0-37.0) g/dL RDW (11.5-14.5) % Plt Count (130-400) K/uL MPV (7.2-11.7) fL Neut % (Auto) (50.0-75.0) % Lymph % (Auto) (20.0-40.0) % [place] % (Auto) (0.0-10.0) % Eos % (Auto) (0.0-4.0) % Baso % (Auto) (0.0-2.0) % Neut # (1.8-7.0) K/uL Lymph # (1.0-4.3) K/uL [place] # (0.0-0.8) K/uL Eos # (0.0-0.7) K/uL Baso # (0.0-0.2) K/uL Sodium (132-148) mmol/L Potassium (3.6-5.2) mmol/L Chloride (98-107) mmol/L Carbon Dioxide (22-30) mmol/L Anion Gap (10-20) BUN (7-17) mg/dL Creatinine (0.7-1.2) MG/DL Est GFR ( Amer) Est GFR (Non-Af Amer) POC Glucose (mg/dL) 273 H 211 H 166 H (65-110) mg/dL Random Glucose (65-105) mg/dL Calcium (8.6-10.4) mg/dl Phosphorus (2.5-4.5) mg/dL Magnesium (1.6-2.3) mg/dL Total Bilirubin (0.2-1.3) mg/dL AST (14-36) U/L ALT (9-52) U/L Alkaline Phosphatase (38-126) U/L Total Protein (6.3-8.3) g/dL Albumin (3.5-5.0) g/dL Globulin (2.2-3.9) gm/dL Albumin/Globulin Ratio Uywrb-8-Xlxmxavcq Relative % Ezzdv-4-Soszedzgi Relative % Beta Globulins Relative % Gamma Globulins Relative % PTH Related Protein (14-27) pg/mL Urine Albumin (PEP) Relative % Ur Protein Fractions 12/27/16 12/26/16 Range/Units 07:25 13:56 WBC (4.8-10.8) K/uL RBC (3.80-5.20) Mil/uL Hgb (11.0-16.0) g/dL Hct (34.0-47.0) % MCV (81.0-99.0) fL MCH (27.0-31.0) pg MCHC (33.0-37.0) g/dL RDW (11.5-14.5) % Plt Count (130-400) K/uL MPV (7.2-11.7) fL Neut % (Auto) (50.0-75.0) % Lymph % (Auto) (20.0-40.0) % [place] % (Auto) (0.0-10.0) % Eos % (Auto) (0.0-4.0) % Baso % (Auto) (0.0-2.0) % Neut # (1.8-7.0) K/uL Lymph # (1.0-4.3) K/uL [place] # (0.0-0.8) K/uL Eos # (0.0-0.7) K/uL Baso # (0.0-0.2) K/uL Sodium (132-148) mmol/L Potassium (3.6-5.2) mmol/L Chloride (98-107) mmol/L Carbon Dioxide (22-30) mmol/L Anion Gap (10-20) BUN (7-17) mg/dL Creatinine (0.7-1.2) MG/DL Est GFR ( Amer) Est GFR (Non-Af Amer) POC Glucose (mg/dL) (65-110) mg/dL Random Glucose (65-105) mg/dL Calcium (8.6-10.4) mg/dl Phosphorus (2.5-4.5) mg/dL Magnesium (1.6-2.3) mg/dL Total Bilirubin (0.2-1.3) mg/dL AST (14-36) U/L ALT (9-52) U/L Alkaline Phosphatase (38-126) U/L Total Protein (6.3-8.3) g/dL Albumin (3.5-5.0) g/dL Globulin (2.2-3.9) gm/dL Albumin/Globulin Ratio 0.15 Ddrur-6-Npocedodv 3.8 Relative % Qhutk-8-Wqhjjxeki 5.7 Relative % Beta Globulins 6.1 Relative % Gamma Globulins 71.5 Relative % PTH Related Protein 47 H (14-27) pg/mL Urine Albumin (PEP) 13.0 Relative % Ur Protein Fractions See note Laboratory Results - last 24 hr 12/26/16 12/27/16 12/29/16 13:56 07:25 12:06 WBC RBC Hgb Hct MCV MCH MCHC RDW Plt Count MPV Neut % (Auto) Lymph % (Auto) [place] % (Auto) Eos % (Auto) Baso % (Auto) Neut # Lymph # [place] # Eos # Baso # Sodium Potassium Chloride Carbon Dioxide Anion Gap BUN Creatinine Est GFR ( Amer) Est GFR (Non-Af Amer) POC Glucose (mg/dL) 166 H Random Glucose Calcium Phosphorus Magnesium Total Bilirubin AST ALT Alkaline Phosphatase Total Protein Albumin Globulin Albumin/Globulin Ratio 0.15 Iigxe-1-Hwfgdnhlm 3.8 Huwwc-4-Xfhsxfsro 5.7 Beta Globulins 6.1 Gamma Globulins 71.5 PTH Related Protein 47 H Urine Albumin (PEP) 13.0 Ur Protein Fractions See note 12/29/16 12/29/16 12/30/16 16:18 21:17 06:52 WBC 19.0 H RBC 2.06 L Hgb 6.5 L* Hct 19.9 L MCV 96.4 MCH 31.6 H MCHC 32.8 L RDW 16.5 H Plt Count 227 MPV 8.4 Neut % (Auto) 93.3 H Lymph % (Auto) 3.8 L [place] % (Auto) 2.8 Eos % (Auto) 0.0 Baso % (Auto) 0.1 Neut # 17.8 H Lymph # 0.7 L [place] # 0.5 Eos # 0.0 Baso # 0.0 Sodium Potassium Chloride Carbon Dioxide Anion Gap BUN Creatinine Est GFR ( Amer) Est GFR (Non-Af Amer) POC Glucose (mg/dL) 211 H 273 H Random Glucose Calcium Phosphorus Magnesium Total Bilirubin AST ALT Alkaline Phosphatase Total Protein Albumin Globulin Albumin/Globulin Ratio Cpmtx-5-Mhcvwgnnr Pdcld-3-Wqfgogpdi Beta Globulins Gamma Globulins PTH Related Protein Urine Albumin (PEP) Ur Protein Fractions 12/30/16 12/30/16 06:52 08:01 WBC RBC Hgb Hct MCV MCH MCHC RDW Plt Count MPV Neut % (Auto) Lymph % (Auto) [place] % (Auto) Eos % (Auto) Baso % (Auto) Neut # Lymph # [place] # Eos # Baso # Sodium 135 Potassium 5.0 Chloride 91 L Carbon Dioxide 25 Anion Gap 24 H BUN 79 H Creatinine 4.0 H Est GFR ( Amer) 13 Est GFR (Non-Af Amer) 11 POC Glucose (mg/dL) 285 H Random Glucose 232 H Calcium 9.0 Phosphorus 7.8 H Magnesium 2.0 Total Bilirubin 0.6 AST 16 ALT 27 Alkaline Phosphatase 54 Total Protein 5.9 L Albumin 3.3 L Globulin 2.6 Albumin/Globulin Ratio 1.3 Vqnrj-0-Myqxyqnhf Sekne-8-Bqsbevwbj Beta Globulins Gamma Globulins PTH Related Protein Urine Albumin (PEP) Ur Protein Fractions Critical Care Progress Note - Nutrition Nutrition: Nutrition Category Date Time Status Renal Diet [DIET] Diets 12/25/16 Dinner Active Attending/Attestation - Attestation I have personally seen and examined this patient.: Yes I have fully participated in the care of the patient.: Yes I have reviewed all pertinent clinical information: Yes Notes (Text): 12/28/16 Today: , December 28, 2016 The Patient was seen and examined at the bedside, Medical records reviewed, and management issues were discussed and formulated with the house staff. Pain issues, skin care, head of the bed elevation, glycemic control were addressed. I have reviewed all the relevant clinical, laboratory, hemodynamic, radiographic data and medications Pt's current status is discussed with pt / pt's family I concur with resident's History & Physical exam, assessment and plan of care as transcribed in Dr. Bishop note. Awake, Tacypnea BIPAP dependent Resp labored, Acute hypercarbic respiratory failure in the setting of severe Respiratory muscle and B/L pneumoonia, small Lt pleural effusion with underlying Obstructive lung disease, limited pulmonary reserve and hypoventilation. On Pulmicort Flexhaler 90 mcg INH RQ12hr and BD Nebs Continue - Doxycycline and Zosyn 2.25 gm IV Q8 Day 5 (started on 12/25) PRN Xanax for anxiety Low threshold for intubation and mechanical ventilation at the earliest sign of worsening respiratory status Aggressive pulmonary toilet, chest PT, suctioning DVT: SCD GI: Pepcid 20 mg PO daily Total Critical Care Time spent 38 minutes The documented time is cumulative and includes review of patient data/exams/labs /chart review and examination of the patient on rounds and throughout the day; time is exclusive of any procedures or teaching time. Full code
--- NOTE | 2016-12-28 12:58 | CARD ---
APPROVED REPORT EXAM: Two-dimensional and M-mode echocardiogram with Doppler and color Doppler. Other Information Quality : Technically Difficult StudyRhythm : NSR INDICATION Atrial Fibrillation Congenital Heart Disease Renal Failure 2D DIMENSIONS IVSd1.0 (0.7-1.1cm)LVDd4.4 (3.9-5.9cm) PWd1.1 (0.7-1.1cm)LVDs3.0 (2.5-4.0cm) FS (%) 31.9 %LVEF (%)60.2 (>50%) M-Mode DIMENSIONS RVDd3.08 (2.1-3.2cm)Left Atrium (MM)4.70 (2.5-4.0cm) Aortic Root2.98 (2.2-3.7cm)Aortic Cusp Exc.2.02 (1.5-2.0cm) Mitral Valve MV E [place]515.2cm/sMV E Peak Gr.21mmHgMV A Rwlxmesl246.1cm/s MV E Mean Gr.7mmHgMV UET90wyN/A ratio1.2 MVA (PHT)3.11cm2 TDI E/Lateral E'0.0E/Medial E'0.0 Tricuspid Valve TR Peak Mzjfumgi636lg/sTR Peak Gr.32hpUdOSSH76wrEt LEFT VENTRICLE The left ventricle is normal size. There is normal left ventricular wall thickness. The left ventricular function is normal. The left ventricular ejection fraction is within the normal range. There is normal LV segmental wall motion. Tissue Doppler imaging reveals moderate left ventricular diastolic dysfunction. No left ventricle thrombus noted on this study. There is no ventricular septal defect visualized. There is no left ventricular aneurysm. There is no mass noted in the left ventricle. RIGHT VENTRICLE The right ventricle is normal size. There is normal right ventricular wall thickness. The right ventricular systolic function is normal. ATRIA The left atrium is moderately dilated. The right atrium is mildly dilated. AORTIC VALVE The aortic valve is normal in structure. No aortic regurgitation is present. There is no aortic valvular stenosis. There is no aortic valvular vegetation. MITRAL VALVE Mitral annular calcification is moderate. The mitral valve is calcified and displays decreased opening. There is mild mitral valve stenosis. Mitral regurgitation is trace. TRICUSPID VALVE The tricuspid valve is normal in structure. There is moderate to severe pulmonary hypertension. PULMONIC VALVE The pulmonary valve is normal in structure. There is trace pulmonic valvular regurgitation. GREAT VESSELS The aortic root is normal in size. The ascending aorta is normal in size. The pulmonary artery is normal. <Conclusion> Tissue Doppler imaging reveals moderate left ventricular diastolic dysfunction. The left atrium is moderately dilated. The right atrium is mildly dilated. Mitral annular calcification is moderate. The mitral valve is calcified and displays decreased opening. There is mild mitral valve stenosis. There iS severe pulmonary hypertension. LV EF IS 60%,
--- NOTE | 2016-12-28 13:56 | CARD ---
APPROVED REPORT EKG Measurement Heart [id number] <Conclusion> Normal sinus rhythm Cannot rule out Anterior infarct, age undetermined non specific st t changes. u waves Abnormal ECG
--- NOTE | 2016-12-28 16:41 | CP.PCM.CON ---
Past Patient History - Past Medical History & Family History Past Medical History?: Yes - Past Social History Smoking Status: Former Smoker - CARDIAC Hx Cardia Arrhythmia: Yes Hx Congestive Heart Failure: Yes Hx Hypertension: Yes - PULMONARY Hx Respiratory Disorders: No - NEUROLOGICAL Hx Neurological Disorder: No - HEENT Hx HEENT Problems: Yes Hx Cataracts: Yes (bilateral) - RENAL Hx Chronic Kidney Disease: Yes Other/Comment: RENAL INSUFFICIENCY - ENDOCRINE/METABOLIC Hx Endocrine Disorders: Yes Hx Diabetes Mellitus Type 2: Yes Hx Hypothyroidism: Yes - HEMATOLOGICAL/ONCOLOGICAL Hx Anemia: Yes - INTEGUMENTARY Hx Dermatological Problems: No - MUSCULOSKELETAL/RHEUMATOLOGICAL Hx Arthritis: Yes - GASTROINTESTINAL Hx Gastrointestinal Disorders: Yes Hx Colostomy: Yes Hx Hemorrhoids: Yes - GENITOURINARY/GYNECOLOGICAL Hx Genitourinary Disorders: No - PSYCHIATRIC Hx Substance Use: No - SURGICAL HISTORY Hx Surgeries: No - ANESTHESIA Hx Anesthesia: No Hx Anesthesia Reactions: No Hx Malignant Hyperthermia: No Meds Allergies/Adverse Reactions: Allergies Allergy/AdvReac Type Severity Reaction Status Date / Time No Known Allergies Allergy Verified 12/01/16 07:55 - Medications Medications: Current Medications Famotidine (Pepcid) 20 mg PO DAILY [facility] Last Admin: 12/28/16 13:33 Dose: 20 mg Ferrous Sulfate (Feosol) 325 mg PO DAILY [facility] Last Admin: 12/28/16 13:34 Dose: 325 mg Glipizide (Glucotrol) 10 mg PO DAILY [facility] Last Admin: 12/27/16 09:31 Dose: 10 mg Heparin Sodium (Porcine) (Heparin) 5,000 units SC Q8 [facility] Last Admin: 12/28/16 13:37 Dose: 5,000 units Piperacillin Sod/Tazobactam Sod (Zosyn 2.25 Gm Iv Premix) 2.25 gm in 50 mls @ 100 mls/hr IVPB Q8H [facility] Last Admin: 12/28/16 06:12 Dose: 100 mls/hr Doxycycline Hyclate 100 mg/ (Sodium Chloride) 100 mls @ 100 mls/hr IVPB Q12H [facility] Last Admin: 12/28/16 08:38 Dose: 100 mls/hr Insulin Human Regular (Novolin R) 0 unit SC ACHS [facility] PRN Reason: Protocol Last Admin: 12/28/16 13:35 Dose: 4 unit Levothyroxine Sodium (Synthroid) 75 mcg PO DAILY@0630 [facility] Last Admin: 12/28/16 06:10 Dose: 75 mcg Methylprednisolone (Solu-Medrol) 40 mg IVP Q8H [facility] Last Admin: 12/28/16 08:48 Dose: 40 mg Sevelamer Carbonate (Renvela) 0.8 gm PO TIDCC [facility] Last Admin: 12/28/16 13:39 Dose: 0.8 gm Results - Vital Signs Recent Vital Signs: Last Vital Signs Temp 98.1 F 12/28/16 08:00 Pulse 78 12/28/16 15:00 Resp 18 12/28/16 15:00 BP 133/51 L 12/28/16 14:23 Pulse Ox 92 L 12/28/16 15:00 - Labs Result Diagrams: 12/28/16 06:02 12/28/16 06:02 Labs: Laboratory Results - last 24 hr 12/25/16 12/27/16 12/27/16 21:39 07:25 08:16 WBC RBC Hgb Hct MCV MCH MCHC RDW Plt Count MPV Neut % (Auto) Lymph % (Auto) [place] % (Auto) Eos % (Auto) Baso % (Auto) Neut # Lymph # [place] # Eos # Baso # Neutrophils % (Manual) Band Neutrophils % Lymphocytes % (Manual) Monocytes % (Manual) Nucleated RBC % Platelet Estimate Large Platelets Hypochromasia (manual) Poikilocytosis (manual Basophilic Stippling Anisocytosis (manual) Microcytosis (manual) Target Cells Tear Drop Cells Sodium Potassium Chloride Carbon Dioxide Anion Gap BUN Creatinine Est GFR ( Amer) Est GFR (Non-Af Amer) POC Glucose (mg/dL) Random Glucose Calcium Phosphorus Magnesium Total Bilirubin AST ALT Alkaline Phosphatase Total Protein Albumin Albumin (PEP) 3.0 L Globulin Albumin/Globulin Ratio Njkvn-1-Roivyzwwe 0.6 H Exvvf-6-Euznscxtn 1.0 H Cvma-5-Mrnzwtgx 0.3 L Dmsw-7-Esxemhep 0.3 Gamma Globulins 0.7 L Abnorm Protein Band 1 0.23 H Abnorm Protein Band 2 TEST NOT PERFORMED Abnorm Protein Band 3 TEST NOT PERFORMED PTH Intact Whole Molec 11 L Urine Creatinine 0.70 Ur Creatinine 24 Hour 0.59 L Ur Total Protein 24 Hr 2108 H Protein/Creat Ratio 24h 3553 H Urine Total Protein 2480 H SEUN & SPEP Interp See note 0912/28/16 12/28/16 21:39 06:02 06:02 WBC 16.7 H RBC 2.22 L Hgb 7.2 L Hct 21.5 L MCV 96.8 MCH 32.5 H MCHC 33.6 RDW 16.5 H Plt Count 200 MPV 8.0 Neut % (Auto) 92.4 H Lymph % (Auto) 5.2 L [place] % (Auto) 1.9 Eos % (Auto) 0.2 Baso % (Auto) 0.3 Neut # 15.4 H Lymph # 0.9 L [place] # 0.3 Eos # 0.0 Baso # 0.0 Neutrophils % (Manual) 90 H Band Neutrophils % 2 Lymphocytes % (Manual) 7 L Monocytes % (Manual) 1 Nucleated RBC % 1 H Platelet Estimate Normal Large Platelets Present Hypochromasia (manual) Moderate Poikilocytosis (manual Slight Basophilic Stippling Slight Anisocytosis (manual) Slight Microcytosis (manual) Slight Target Cells Slight Tear Drop Cells Slight Sodium 138 Potassium 4.6 Chloride 96 L Carbon Dioxide 26 Anion Gap 21 H BUN 51 H Creatinine 4.2 H Est GFR ( Amer) 12 Est GFR (Non-Af Amer) 10 POC Glucose (mg/dL) 185 H Random Glucose 234 H Calcium 11.4 H Phosphorus 6.9 H Magnesium 2.1 Total Bilirubin 0.4 AST 20 ALT 30 Alkaline Phosphatase 49 Total Protein 6.1 L Albumin 3.3 L Albumin (PEP) Globulin 2.8 Albumin/Globulin Ratio 1.2 Nbxvu-7-Wgezetfuw Bkpyg-8-Tkimptbvc Uhbr-6-Csxvmvcz Bpxm-9-Pbcajmsr Gamma Globulins Abnorm Protein Band 1 Abnorm Protein Band 2 Abnorm Protein Band 3 PTH Intact Whole Molec Urine Creatinine Ur Creatinine 24 Hour Ur Total Protein 24 Hr Protein/Creat Ratio 24h Urine Total Protein SEUN & SPEP Interp 12/28/16 12/28/16 12/28/16 07:51 11:44 16:32 WBC RBC Hgb Hct MCV MCH MCHC RDW Plt Count MPV Neut % (Auto) Lymph % (Auto) [place] % (Auto) Eos % (Auto) Baso % (Auto) Neut # Lymph # [place] # Eos # Baso # Neutrophils % (Manual) Band Neutrophils % Lymphocytes % (Manual) Monocytes % (Manual) Nucleated RBC % Platelet Estimate Large Platelets Hypochromasia (manual) Poikilocytosis (manual Basophilic Stippling Anisocytosis (manual) Microcytosis (manual) Target Cells Tear Drop Cells Sodium Potassium Chloride Carbon Dioxide Anion Gap BUN Creatinine Est GFR ( Amer) Est GFR (Non-Af Amer) POC Glucose (mg/dL) 286 H 320 H 294 H Random Glucose Calcium Phosphorus Magnesium Total Bilirubin AST ALT Alkaline Phosphatase Total Protein Albumin Albumin (PEP) Globulin Albumin/Globulin Ratio Mpnxg-7-Colissska Ifunx-4-Jxarfbanv Vcao-6-Lrbejoxr Hxpm-8-Erblhjlp Gamma Globulins Abnorm Protein Band 1 Abnorm Protein Band 2 Abnorm Protein Band 3 PTH Intact Whole Molec Urine Creatinine Ur Creatinine 24 Hour Ur Total Protein 24 Hr Protein/Creat Ratio 24h Urine Total Protein SEUN & SPEP Interp
--- NOTE | 2016-12-28 16:50 | CP.PCM.CON ---
History of Present Illness - History of Present Illness History of Present Illness: Reason for consultation: shortness of breath and lung infiltrate 81-year-old female with history of COPD, severe pulmonary hypertension, A. fib, CHF, anemia, diabetes, hepatitis C admitted with shortness of breath and left shoulder pain. Patient was transferred to ICU FOR WORSENING RENAL FUNCTION AND SHORTNESS OF BREATH. patient also was found to have hypercalcemia and was started on hemodialysis. Patient refusing BiPAP and placed on high flow oxygen. Awake responsive in mild to moderate distress Review of Systems - Review of Systems All systems: reviewed and no additional remarkable complaints except (shortness of breath) Past Patient History - Past Medical History & Family History Past Medical History?: Yes - Past Social History Smoking Status: Former Smoker - CARDIAC Hx Cardia Arrhythmia: Yes Hx Congestive Heart Failure: Yes Hx Hypertension: Yes - PULMONARY Hx Respiratory Disorders: No - NEUROLOGICAL Hx Neurological Disorder: No - HEENT Hx HEENT Problems: Yes Hx Cataracts: Yes (bilateral) - RENAL Hx Chronic Kidney Disease: Yes Other/Comment: RENAL INSUFFICIENCY - ENDOCRINE/METABOLIC Hx Endocrine Disorders: Yes Hx Diabetes Mellitus Type 2: Yes Hx Hypothyroidism: Yes - HEMATOLOGICAL/ONCOLOGICAL Hx Anemia: Yes - INTEGUMENTARY Hx Dermatological Problems: No - MUSCULOSKELETAL/RHEUMATOLOGICAL Hx Arthritis: Yes - GASTROINTESTINAL Hx Gastrointestinal Disorders: Yes Hx Colostomy: Yes Hx Hemorrhoids: Yes - GENITOURINARY/GYNECOLOGICAL Hx Genitourinary Disorders: No - PSYCHIATRIC Hx Substance Use: No - SURGICAL HISTORY Hx Surgeries: No - ANESTHESIA Hx Anesthesia: No Hx Anesthesia Reactions: No Hx Malignant Hyperthermia: No Meds Allergies/Adverse Reactions: Allergies Allergy/AdvReac Type Severity Reaction Status Date / Time No Known Allergies Allergy Verified 12/01/16 07:55 - Medications Medications: Current Medications Famotidine (Pepcid) 20 mg PO DAILY [facility] Last Admin: 12/28/16 13:33 Dose: 20 mg Ferrous Sulfate (Feosol) 325 mg PO DAILY [facility] Last Admin: 12/28/16 13:34 Dose: 325 mg Glipizide (Glucotrol) 10 mg PO DAILY [facility] Last Admin: 12/28/16 16:38 Dose: 10 mg Heparin Sodium (Porcine) (Heparin) 5,000 units SC Q8 [facility] Last Admin: 12/28/16 13:37 Dose: 5,000 units Piperacillin Sod/Tazobactam Sod (Zosyn 2.25 Gm Iv Premix) 2.25 gm in 50 mls @ 100 mls/hr IVPB Q8H [facility] Last Admin: 12/28/16 14:45 Dose: 100 mls/hr Doxycycline Hyclate 100 mg/ (Sodium Chloride) 100 mls @ 100 mls/hr IVPB Q12H [facility] Last Admin: 12/28/16 08:38 Dose: 100 mls/hr Insulin Human Regular (Novolin R) 0 unit SC ACHS [facility] PRN Reason: Protocol Last Admin: 12/28/16 16:39 Dose: 3 unit Levothyroxine Sodium (Synthroid) 75 mcg PO DAILY@0630 [facility] Last Admin: 12/28/16 06:10 Dose: 75 mcg Methylprednisolone (Solu-Medrol) 40 mg IVP Q8H [facility] Last Admin: 12/28/16 16:45 Dose: 40 mg Sevelamer Carbonate (Renvela) 0.8 gm PO TIDCC [facility] Last Admin: 12/28/16 16:40 Dose: 0.8 gm Physical Exam - Head Exam Head Exam: ATRAUMATIC, NORMOCEPHALIC - Eye Exam Eye Exam: Normal appearance - Respiratory Exam Respiratory Exam: Rales - Cardiovascular Exam Cardiovascular Exam: REGULAR RHYTHM - GI/Abdominal Exam GI & Abdominal Exam: Normal Bowel Sounds, Soft - Extremities Exam Extremities exam: Positive for: pedal edema Results - Vital Signs Recent Vital Signs: Last Vital Signs Temp 98.1 F 12/28/16 08:00 Pulse 78 12/28/16 15:00 Resp 18 12/28/16 15:00 BP 133/51 L 12/28/16 14:23 Pulse Ox 92 L 12/28/16 15:00 - Labs Result Diagrams: 12/28/16 06:02 12/28/16 06:02 Labs: Laboratory Results - last 24 hr 12/25/16 12/27/16 12/27/16 21:39 07:25 08:16 WBC RBC Hgb Hct MCV MCH MCHC RDW Plt Count MPV Neut % (Auto) Lymph % (Auto) [place] % (Auto) Eos % (Auto) Baso % (Auto) Neut # Lymph # [place] # Eos # Baso # Neutrophils % (Manual) Band Neutrophils % Lymphocytes % (Manual) Monocytes % (Manual) Nucleated RBC % Platelet Estimate Large Platelets Hypochromasia (manual) Poikilocytosis (manual Basophilic Stippling Anisocytosis (manual) Microcytosis (manual) Target Cells Tear Drop Cells Sodium Potassium Chloride Carbon Dioxide Anion Gap BUN Creatinine Est GFR ( Amer) Est GFR (Non-Af Amer) POC Glucose (mg/dL) Random Glucose Calcium Phosphorus Magnesium Total Bilirubin AST ALT Alkaline Phosphatase Total Protein Albumin Albumin (PEP) 3.0 L Globulin Albumin/Globulin Ratio Aoonw-1-Pjpsfhhxg 0.6 H Jajie-8-Ozxmmksgm 1.0 H Pcmw-9-Cvehiqkt 0.3 L Nogf-5-Dngkmgtn 0.3 Gamma Globulins 0.7 L Abnorm Protein Band 1 0.23 H Abnorm Protein Band 2 TEST NOT PERFORMED Abnorm Protein Band 3 TEST NOT PERFORMED PTH Intact Whole Molec 11 L Urine Creatinine 0.70 Ur Creatinine 24 Hour 0.59 L Ur Total Protein 24 Hr 2108 H Protein/Creat Ratio 24h 3553 H Urine Total Protein 2480 H SEUN & SPEP Interp See note 12/27/16 12/28/16 12/28/16 21:39 06:02 06:02 WBC 16.7 H RBC 2.22 L Hgb 7.2 L Hct 21.5 L MCV 96.8 MCH 32.5 H MCHC 33.6 RDW 16.5 H Plt Count 200 MPV 8.0 Neut % (Auto) 92.4 H Lymph % (Auto) 5.2 L [place] % (Auto) 1.9 Eos % (Auto) 0.2 Baso % (Auto) 0.3 Neut # 15.4 H Lymph # 0.9 L [place] # 0.3 Eos # 0.0 Baso # 0.0 Neutrophils % (Manual) 90 H Band Neutrophils % 2 Lymphocytes % (Manual) 7 L Monocytes % (Manual) 1 Nucleated RBC % 1 H Platelet Estimate Normal Large Platelets Present Hypochromasia (manual) Moderate Poikilocytosis (manual Slight Basophilic Stippling Slight Anisocytosis (manual) Slight Microcytosis (manual) Slight Target Cells Slight Tear Drop Cells Slight Sodium 138 Potassium 4.6 Chloride 96 L Carbon Dioxide 26 Anion Gap 21 H BUN 51 H Creatinine 4.2 H Est GFR ( Amer) 12 Est GFR (Non-Af Amer) 10 POC Glucose (mg/dL) 185 H Random Glucose 234 H Calcium 11.4 H Phosphorus 6.9 H Magnesium 2.1 Total Bilirubin 0.4 AST 20 ALT 30 Alkaline Phosphatase 49 Total Protein 6.1 L Albumin 3.3 L Albumin (PEP) Globulin 2.8 Albumin/Globulin Ratio 1.2 Pxqmg-5-Auhfcxbfg Sqvmx-1-Dshdzcxdq Cbtz-6-Yyltzhlg Whnc-9-Zlitgbth Gamma Globulins Abnorm Protein Band 1 Abnorm Protein Band 2 Abnorm Protein Band 3 PTH Intact Whole Molec Urine Creatinine Ur Creatinine 24 Hour Ur Total Protein 24 Hr Protein/Creat Ratio 24h Urine Total Protein SEUN & SPEP Interp 12/28/16 12/28/16 12/28/16 07:51 11:44 16:32 WBC RBC Hgb Hct MCV MCH MCHC RDW Plt Count MPV Neut % (Auto) Lymph % (Auto) [place] % (Auto) Eos % (Auto) Baso % (Auto) Neut # Lymph # [place] # Eos # Baso # Neutrophils % (Manual) Band Neutrophils % Lymphocytes % (Manual) Monocytes % (Manual) Nucleated RBC % Platelet Estimate Large Platelets Hypochromasia (manual) Poikilocytosis (manual Basophilic Stippling Anisocytosis (manual) Microcytosis (manual) Target Cells Tear Drop Cells Sodium Potassium Chloride Carbon Dioxide Anion Gap BUN Creatinine Est GFR ( Amer) Est GFR (Non-Af Amer) POC Glucose (mg/dL) 286 H 320 H 294 H Random Glucose Calcium Phosphorus Magnesium Total Bilirubin AST ALT Alkaline Phosphatase Total Protein Albumin Albumin (PEP) Globulin Albumin/Globulin Ratio Rwmuk-8-Slaosjhoq Gqcgk-6-Qipunldat Vghm-5-Zuarcxsd Mawn-4-Nrzdxzah Gamma Globulins Abnorm Protein Band 1 Abnorm Protein Band 2 Abnorm Protein Band 3 PTH Intact Whole Molec Urine Creatinine Ur Creatinine 24 Hour Ur Total Protein 24 Hr Protein/Creat Ratio 24h Urine Total Protein SEUN & SPEP Interp Assessment & Plan (1) COPD (chronic obstructive pulmonary disease) Status: Acute Comment: start nebulizer treatment and continu steroids. Awaiting bone marrow biopsy to rule out multiple myeloma. Continue hemodialysis and followup chest x -ray. Continue high flow oxygen (2) Pulmonary hypertension Status: Acute (3) Anemia Status: Acute (4) CHF (congestive heart failure) Status: Acute (5) Acute kidney injury Status: Acute
--- NOTE | 2016-12-28 23:00 | CP.PCM.PN ---
Subjective - Date & Time of Evaluation Date of Evaluation: 12/28/16 Time of Evaluation: 10:45 - Subjective Subjective: Patient seen and evaluated Improved breathing Physical Examination - Constitutional Appears: Non-toxic, No Acute Distress - Head Exam Head Exam: NORMAL INSPECTION Additional comments: obese, upright - Eye Exam Eye Exam: EOMI. absent: Nystagmus, Scleral icterus - ENT Exam ENT Exam: Mucous Membranes Moist - Respiratory Exam Respiratory Exam: Decreased Breath Sounds, Rales. absent: Wheezes, Respiratory Distress, Stridor Additional comments: tunnelled dialysis catheter (right side of chest): clean/dry/intact mild ecchymoses - Cardiovascular Exam Cardiovascular Exam: REGULAR RHYTHM, +S1, +S2 - GI/Abdominal Exam GI & Abdominal Exam: Soft, Normal Bowel Sounds. absent: Distended, Firm, Guarding, Rigid, Tenderness, Rebound Additional comments: obese habitus - Neurological Exam Neurological Exam: Alert, Awake, Oriented x3 - Psychiatric Exam Psychiatric exam: Normal Affect, Normal Mood - Skin Skin Exam: Dry, Intact, Normal Color, Warm Objective - Vital Signs/Intake and Output Vital Signs (last 24 hours): Temp Pulse Resp BP Pulse Ox 98.3 F 78 19 136/46 L 86 L 12/28/16 16:00 12/28/16 20:54 12/28/16 18:22 12/28/16 18:22 12/28/16 18:22 Intake and Output: 12/28/16 12/29/16 18:59 06:59 Intake Total 1020 Output Total 200 Balance 820 - Medications Medications: Current Medications Famotidine (Pepcid) 20 mg PO DAILY [facility] Last Admin: 12/28/16 13:33 Dose: 20 mg Ferrous Sulfate (Feosol) 325 mg PO DAILY [facility] Last Admin: 12/28/16 13:34 Dose: 325 mg Glipizide (Glucotrol) 10 mg PO DAILY [facility] Last Admin: 12/28/16 16:38 Dose: 10 mg Heparin Sodium (Porcine) (Heparin) 5,000 units SC Q8 [facility] Last Admin: 12/28/16 22:21 Dose: 5,000 units Piperacillin Sod/Tazobactam Sod (Zosyn 2.25 Gm Iv Premix) 2.25 gm in 50 mls @ 100 mls/hr IVPB Q8H [facility] Last Admin: 12/28/16 22:24 Dose: 100 mls/hr Doxycycline Hyclate 100 mg/ (Sodium Chloride) 100 mls @ 100 mls/hr IVPB Q12H [facility] Last Admin: 12/28/16 21:00 Dose: 100 mls/hr Insulin Human Regular (Novolin R) 0 unit SC ACHS [facility] PRN Reason: Protocol Last Admin: 12/28/16 22:24 Dose: Not Given Levothyroxine Sodium (Synthroid) 75 mcg PO DAILY@0630 [facility] Last Admin: 12/28/16 06:10 Dose: 75 mcg Methylprednisolone (Solu-Medrol) 40 mg IVP Q8H [facility] Last Admin: 12/28/16 16:45 Dose: 40 mg Sevelamer Carbonate (Renvela) 0.8 gm PO TIDCC [facility] Last Admin: 12/28/16 16:40 Dose: 0.8 gm - Labs Labs: 12/28/16 06:02 12/28/16 06:02 PT 13.1 SECONDS (9.7-12.2) H 12/26/16 08:05 INR 1.2 12/26/16 08:05 APTT 39 SECONDS (21-34) H 12/26/16 08:05 Assessment and Plan - Assessment and Plan (Free Text) Assessment: (1) Fluid Overload Assessment and Plan: * ProBNP today: 86165 * Contributing factors: acute on chronic kidney disease and hx of diastolic congestive heart failure * Vascular Surgery: Dr. Ontiveros-->notified by emergency room; for emergent dialysis access * Nephrology: Dr Bill on board-->acute on chronic kidney insufficiency, hypercalcemia; emergent dialysis * Chest Xray (12/25/16): prominent diffuse increased interstital lung markings throughout both lungs suggestive for edema and/or infiltrate * Chest Xray (12/27/16): persistent prominent diffuse increased consolidative changes throughtout both lungs with coarse reticular interstital airspce opacities. More focal confluent airspace consolidative changes in the right right midlung zone and left lung base with small left plueral effusion. Cardiomegaly * Monitor intake output * Daily weights * 12/27/16: 2nd dialysis session today--> 2 liters removed * 12/28/16: Spoke with Dr. Bill-->dialysis for tomorrow; pending chest xray read (2) Acute kidney injury superimposed on chronic kidney disease Assessment and Plan: * Nephrology Dr. Bill consulted-->help appreciated * Hepatitis panel: Negative * HIV: negative * Mycoplasma Igm: negative * Legionella; Negative * Vascular Surgery: Dr. 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 * Recommended for SPEP, IPEP--->pending * free light chain lambda: 907464.7 * free light chain kappa: 17.5 * 24 hr urine UPEP-->resulting--> 2108 (high) * urine IPE * beta2 microglobulin * LDH: 522 * Prior SPEP: (12/02/16): M Adarsh migrating in the gamma globulin region; 12/25 : M spike * immuonfixation: pending * BUN/Cr elevated today: 90/7.7 * 12/25 Urinanalysis: +leuk esterase, 2+ protein, + Wbc and + RBC * urine culture: no growth (<1000 CFU/ml) * Ct Abdomen/Pelvis (12/25/16): No evidence of nephrolithiasis or hydronephrosis , 1,5 cm exophyitc high attentuation lesion at the mid to lower pole of right kidney. possibility of renal cell carcnioma should be excluded. 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 Airspace consolidation at left lobe associated with small pleural fussion suspicious for pneumonia Status: Acute (3) Possible Multiple Myeloma Assessment and Plan: * Criteria: anemia, renal insufficiency, hypercalcemia * Nephrology Dr. Bill consulted-->help appreciated * Vascular Surgery: Dr. Ontiveros-->help appreciated * Surgery consulted and will place permacath with plan for HD today * Heme-Oncology: Dr Martinez-->help appreciated * Possible patient has light chain multiple myeloma * free light chain lambda: 581657.7 * free light chain kappa: 17.5 * 24 hr urine UPEP--> 2108 (high) * urine IPE--->--->pending * beta2 microglobulin--->--->pending * LDH: 522 * Prior SPEP: (12/02/16): M Adarsh migrating in the gamma globulin region; 12/25 : M spike * 12/27: discussed with Dr. Martinez, patient's for bone marrow biopsy for Sunday and possible start chemotherapy. Pending echocardiogram. * BUN/Cr elevated today: 90/7.7 * 12/25 Urinanalysis: +leuk esterase, 2+ protein, + Wbc and + RBC * urine culture: no growth (<1000 CFU/ml) * Ct Abdomen/Pelvis (12/25/16): No evidence of nephrolithiasis or hydronephrosis , 1,5 cm exophyitc high attentuation lesion at the mid to lower pole of right kidney. possibility of renal cell carcnioma should be excluded. 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 Airspace consolidation at left lobe associated with small pleural fussion suspicious for pneumonia * Pending Echocardiogram--> to check prognosis Status: Acute (4) Hypercalcemia Assessment and Plan: * Nephrology (Dr. Bill) on board-->help appreciated * Heme-onc (Dr. Martinez) on board--->help appreciated * PTH related Protein: pending * PTH intact: 14 * Vitamin D: 66.6 * ОЛЕГ: 28 * Ionized Calcium: 6.7 * Possible patient has light chain multiple myeloma * Recommended for SPEP, IPEP--->pending * free light chain lambda: 914555.7 * free light chain kappa: 17.5 * 24 hr urine UPEP--> 2108 (high) * urine IPE--->--->pending * beta2 microglobulin--->--->pending * LDH: 522 * Prior SPEP: (12/02/16): M Adarsh migrating in the gamma globulin region; 12/25 : M spike Status: Acute (5) CHF exacerbation Assessment and Plan: * History of diastolic congestive heart failure * Non Obstructive Cath * ProBNP today: 39250 * 06/28/16 Echo showed EF of 83% with borderline concentric LVH. Mild-moderate mitral regurgitation * pending repeat echo result * 12/01 EKG: normal, NSR * monitor intake and output * Daily Weights Status: Acute (6) Anemia Assessment and Plan: * Heme-onc (Dr. Martinez) on board-->help appreciated * Discussed with PMD: Dr. Winkler-->patient has had workup including GI workup in 2017 in regards to anemia * Thought to be chronic secondary to kidney disease * Continue home meds Ferrous sulfate 325 mg daily * s/p 1 unit of PRBC on 12/25 7.2 * 12/25 stool occult blood: negative * Prior hospitalizations included in patient's chart; awaiting copy of report of GI workup Status: Chronic (7) Atrial fibrillation Assessment and Plan: * Cardiology (Dr. Little) covering for Dr. Lynch's patients * Continue home meds: Amiodarone 200 mg daily, Cardizem 240 mg daily * Patient is not on anticoagulation secondary to anemia * CHADS: 4 (DM, Age, HTN, CHF) * HASBLED:2 (Age and Renal Disease) Status: Acute (8) HTN (hypertension) Assessment and Plan: * Monitor vital signs * Restart Amiodarone 200mg PO daily and Cardizem 240mg PO daily Status: Chronic (9) Leukocytosis Assessment and Plan: * In the ED, order for dose of Zosyn and Vancomycin on 12/25 * Strep, legionella: negative and mycoplasma IgM: negative * Patient recently at the hospital within 90 days-->consideration for possible hospital acquired pneumonia * Patient does not meet sepsis critera (04/19: leukocytosis) * Start Zosyn 2.25 gr IV Q8H (active since 12/25/16) and Doxcycline 100mg IV Q 12hours (active since 12/25/16) * Blood Culture (12/25/16): no growth after 24 hours X2 * Urine culture (12/25/16): <1000 * Procalcitonin low Status: Acute (10) History of pulmonary fibrosis Assessment and Plan: * Consult: Dr Kessler (pulmonary fibrosis) on board * continue home meds: Pulmicort Flexhaler 90 mcg INH RQ12hr * f/u sputum culture-->pending * Start on Solumedrol 40mg IV Q 8 hours per pulmonary Status: Chronic (11) History of Gastritis Assessment and Plan: * Pepcid 20mg PO daily Status: Chronic (12) Diabetes 1.5, managed as type 2 Assessment and Plan: * Continue home meds: Glipizide 10 mg daily * daily Accuchecks QAC and HS * Tjxwyznmgru9x: 6.1 Status: Chronic (13) Hypothyroidism Status: Chronic * Order TSH in AM-->pending Status: Chronic (14) Hepatitis Assessment and Plan: * RUQ pain will f/u Amylase, lipase which are normal * LFTs are normal Status: Chronic (15) History of back pain Assessment and Plan: * held Magnesium oxide 400 mg BID; Tramadol-Acetaminophen 32.5-325 mg 2 tablets Q6hr Status: Acute (16) Lower extremity pain Assessment and Plan: * Held Magnesium oxide 400 mg BID; Tramadol-Acetaminophen 32.5-325 mg 2 tablets Q6hr Status: Acute (17) Prophylactic measure Assessment and Plan: * DVT: SCDs b/l; Heparin 5000 units subq 8 hours * GI: Omeprazole 20 mg daily * Monitor intake and output * Daily Weight Status: Acute Plan for bone marrow biospy-->tenatively tomorrow; will need port-cath placement Dialysis tomorrow per nephrology F/u chest xray
[2016-12-29] MEDS ORDERED: Oxycodone/Acetaminophen 5/325 mg Tab PO STA (00:46)
[2016-12-29] MEDS: MethylPREDNISolone 40 mg Vial IVP SCH ×3 (01:46→17:03)
[2016-12-29 06:34] LABS: BASO # 0.1 K/uL (0.0-0.2); BASO % 0.2 % (0.0-2.0); EOS % 0.1 % (0.0-4.0); HEMATOCRIT 21.9 % (34.0-47.0); LYMPH # 3.9 K/uL (1.0-4.3); MEAN CELL VOLUME 98.1 fL (81.0-99.0); MEAN CORPUSCULAR HEMOGLOBIN 31.6 pg (27.0-31.0); MEAN CORPUSCULAR HGB CONC 32.2 g/dL (33.0-37.0); MEAN PLATELET VOLUME 8.4 fL (7.2-11.7); MONO # 1.4 K/uL (0.0-0.8); MONO % 4.6 % (0.0-10.0); NRBC % 0.1 % (0.0-2.0); RED CELL DISTRIBUTION WIDTH 16.6 % (11.5-14.5); WHITE BLOOD COUNT 30.3 K/uL (4.8-10.8)
[2016-12-29] MEDS: Piperacill/Tazo 2.25gm in Dex 2.25 GM/50 ML BAG IVPB SCH ×3 (06:34→22:00)
[2016-12-29] MEDS: Levothyroxine 75 MCG TAB PO SCH (06:34)
[2016-12-29 06:41] LABS: POTASSIUM 5.1 mmol/L (3.6-5.2)
[2016-12-29 06:43] LABS: BILIRUBIN,TOTAL 0.5 mg/dL (0.2-1.3); PHOSPHOROUS 8.6 mg/dL (2.5-4.5)
[2016-12-29 06:44] LABS: CALCIUM 11.5 mg/dl (8.6-10.4); MAGNESIUM 2.4 mg/dL (1.6-2.3)
[2016-12-29 06:45] LABS: ALB/GLOB RATIO 1.4 (1.0-2.1)
[2016-12-29 07:08] LABS: THYROID STIMULATING HORMONE 4.84 mIU/L (0.46-4.68)
--- NOTE | 2016-12-29 07:23 | CP.CCUPN ---
<EdnaSunny R - Last Filed: 12/29/16 16:31> CCU Subjective - Physician Review Subjective (Free Text): Patient seen and examined at bedside. Patient alert, AAOx3, able to follow commands. Patient refusing bipap, now with labored breathing on nasal cannula. Patient currently denies any pain or discomfort. Denies chest pain, abdominal pain, fever, palpitations, nausea, vomiting. 12/29/16 16:31 CCU Objective - Vital Signs / Intake & Output Vital Signs (Last 4 hours): Vital Signs Pulse Resp BP Pulse Ox 12/29/16 06:10 30 H 12/29/16 06:00 82 27 H 86 L 12/29/16 05:56 83 18 117/42 L 85 L 12/29/16 05:00 69 19 94 L 12/29/16 04:22 71 21 128/50 L 94 L 12/29/16 04:00 70 18 95 Intake and Output (Last 8hrs): Intake & Output 12/28/16 12/29/16 12/29/16 22:59 06:59 14:59 Intake Total 630 290 Output Total 200 Balance 430 290 Weight 190 lb 14.725 oz Intake: Intake, IV Amount 150 50 Right Wrist 150 50 Oral 480 240 Output: Stool 200 Urine/Stool Mix 0 Emesis 0 Other: # Bowel Movements 1 - Physical Exam Head: Positive for: Atraumatic, Normocephalic Pupils: Positive for: PERRL Extroacular Muscles: Positive for: EOMI Mouth: Positive for: Moist Mucous Membranes Respiratory/Chest: Positive for: Clear to Auscultation Cardiovascular: Positive for: Regular Rate and Rhythm, Normal S1, S2 Abdomen: Positive for: Normal Bowel Sounds. Negative for: Tenderness, Distention Upper Extremity: Negative for: Edema Lower Extremity: Negative for: Edema Neurological: Positive for: CN II-XII Intact, Speech Normal Psychiatric: Positive for: Alert, Oriented x 3, Normal Insight - Medications Active Medications: Active Medications Generic Name Dose Route Start Last Admin Trade Name Freq PRN Reason Stop Dose Admin Famotidine 20 mg 12/27/16 10:00 12/28/16 13:33 Pepcid PO 20 mg DAILY MARIBETH Administration Ferrous Sulfate 325 mg 12/26/16 10:00 12/28/16 13:34 Feosol PO 325 mg DAILY MARIBETH Administration Glipizide 10 mg 12/27/16 10:00 12/28/16 16:38 Glucotrol PO 10 mg DAILY MARIBETH Administration Heparin Sodium (Porcine) 5,000 units 12/27/16 06:00 12/29/16 06:34 Heparin SC 5,000 units Q8 MARIBETH Administration Piperacillin Sod/Tazobactam Sod 2.25 gm in 50 mls @ 100 mls/hr 12/25/16 23:00 12/29/16 06:34 Zosyn 2.25 Gm Iv Premix IVPB 100 mls/hr Q8H MARIBETH Administration Doxycycline Hyclate 100 mg/ 100 mls @ 100 mls/hr 12/25/16 21:00 12/28/16 21: 00 Sodium Chloride IVPB 100 mls/hr Q12H MARIBETH Administration Insulin Human Regular 0 unit 12/26/16 16:30 12/28/16 22:24 Novolin R SC Not Given ACHS [facility] Protocol Levothyroxine Sodium 75 mcg 12/26/16 06:30 12/29/16 06:34 Synthroid PO 75 mcg DAILY@0630 MARIBETH Administration Methylprednisolone 40 mg 12/27/16 17:45 12/29/16 01:46 Solu-Medrol IVP 40 mg Q8H MARIBETH Administration Sevelamer Carbonate 0.8 gm 12/26/16 12:00 12/28/16 16:40 Renvela PO 0.8 gm TIDCC MARIBETH Administration - Patient Studies Lab Studies: Microbiology Studies 12/25/16 15:45 Blood Culture - Preliminary Blood NO GROWTH AFTER 3 DAYS 12/25/16 16:10 Blood Culture - Preliminary Blood NO GROWTH AFTER 3 DAYS Lab Studies 12/29/16 12/29/16 12/28/16 Range/Units 06:18 06:16 21:26 WBC 30.3 H D (4.8-10.8) K/uL RBC 2.23 L (3.80-5.20) Mil/uL Hgb 7.0 L (11.0-16.0) g/dL Hct 21.9 L (34.0-47.0) % MCV 98.1 (81.0-99.0) fL MCH 31.6 H (27.0-31.0) pg MCHC 32.2 L (33.0-37.0) g/dL RDW 16.6 H (11.5-14.5) % Plt Count 267 (130-400) K/uL MPV 8.4 (7.2-11.7) fL Neut % (Auto) 82.1 H (50.0-75.0) % Lymph % (Auto) 13.0 L (20.0-40.0) % Peach % (Auto) 4.6 (0.0-10.0) % Eos % (Auto) 0.1 (0.0-4.0) % Baso % (Auto) 0.2 (0.0-2.0) % Neut # 24.9 H (1.8-7.0) K/uL Lymph # 3.9 (1.0-4.3) K/uL Peach # 1.4 H (0.0-0.8) K/uL Eos # 0.0 (0.0-0.7) K/uL Baso # 0.1 (0.0-0.2) K/uL Neutrophils % (Manual) (50-75) % Band Neutrophils % (0-2) % Lymphocytes % (Manual) (20-40) % Monocytes % (Manual) (0-10) % Nucleated RBC % (0-0) % Platelet Estimate (NORMAL) Large Platelets Hypochromasia (manual) Poikilocytosis (manual Basophilic Stippling Anisocytosis (manual) Microcytosis (manual) Target Cells Tear Drop Cells Sodium 134 (132-148) mmol/L Potassium 5.1 (3.6-5.2) mmol/L Chloride 94 L (98-107) mmol/L Carbon Dioxide 25 (22-30) mmol/L Anion Gap 20 (10-20) BUN 95 H (7-17) mg/dL Creatinine 6.2 H (0.7-1.2) MG/DL Est GFR ( Amer) 8 Est GFR (Non-Af Amer) 7 POC Glucose (mg/dL) 301 H (65-110) mg/dL Random Glucose 213 H (65-105) mg/dL Calcium 11.5 H (8.6-10.4) mg/dl Phosphorus 8.6 H (2.5-4.5) mg/dL Magnesium 2.4 H (1.6-2.3) mg/dL Total Bilirubin 0.5 (0.2-1.3) mg/dL AST 18 (14-36) U/L ALT 25 (9-52) U/L Alkaline Phosphatase 54 (38-126) U/L Total Protein 6.0 L (6.3-8.3) g/dL Albumin 3.4 L (3.5-5.0) g/dL Albumin (PEP) (3.8-4.8) g/dL Globulin 2.5 (2.2-3.9) gm/dL Albumin/Globulin Ratio 1.4 (1.0-2.1) Ohfjg-4-Ehjrzdupl (0.2-0.3) g/dL Knrqk-5-Hzsbabecw (0.5-0.9) g/dL Hwfm-8-Jvuzepis (0.4-0.6) g/dL Enfs-5-Othannoh (0.2-0.5) g/dL Gamma Globulins (0.8-1.7) g/dL Abnorm Protein Band 1 (None Detected) g/dL Abnorm Protein Band 2 Abnorm Protein Band 3 PTH Intact Whole Molec (14-64) pg/mL Ur Total Protein 24 Hr (<150) mg/24 h Protein/Creat Ratio 24h (</=84) mg/g creat Urine Total Protein (50-240) mg/L SEUN & SPEP Interp Serum Immunofixation (Not Detected) 12/28/16 12/28/16 12/28/16 Range/Units 16:32 11:44 07:51 WBC (4.8-10.8) K/uL RBC (3.80-5.20) Mil/uL Hgb (11.0-16.0) g/dL Hct (34.0-47.0) % MCV (81.0-99.0) fL MCH (27.0-31.0) pg MCHC (33.0-37.0) g/dL RDW (11.5-14.5) % Plt Count (130-400) K/uL MPV (7.2-11.7) fL Neut % (Auto) (50.0-75.0) % Lymph % (Auto) (20.0-40.0) % Peach % (Auto) (0.0-10.0) % Eos % (Auto) (0.0-4.0) % Baso % (Auto) (0.0-2.0) % Neut # (1.8-7.0) K/uL Lymph # (1.0-4.3) K/uL Peach # (0.0-0.8) K/uL Eos # (0.0-0.7) K/uL Baso # (0.0-0.2) K/uL Neutrophils % (Manual) (50-75) % Band Neutrophils % (0-2) % Lymphocytes % (Manual) (20-40) % Monocytes % (Manual) (0-10) % Nucleated RBC % (0-0) % Platelet Estimate (NORMAL) Large Platelets Hypochromasia (manual) Poikilocytosis (manual Basophilic Stippling Anisocytosis (manual) Microcytosis (manual) Target Cells Tear Drop Cells Sodium (132-148) mmol/L Potassium (3.6-5.2) mmol/L Chloride (98-107) mmol/L Carbon Dioxide (22-30) mmol/L Anion Gap (10-20) BUN (7-17) mg/dL Creatinine (0.7-1.2) MG/DL Est GFR ( Amer) Est GFR (Non-Af Amer) POC Glucose (mg/dL) 294 H 320 H 286 H (65-110) mg/dL Random Glucose (65-105) mg/dL Calcium (8.6-10.4) mg/dl Phosphorus (2.5-4.5) mg/dL Magnesium (1.6-2.3) mg/dL Total Bilirubin (0.2-1.3) mg/dL AST (14-36) U/L ALT (9-52) U/L Alkaline Phosphatase (38-126) U/L Total Protein (6.3-8.3) g/dL Albumin (3.5-5.0) g/dL Albumin (PEP) (3.8-4.8) g/dL Globulin (2.2-3.9) gm/dL Albumin/Globulin Ratio (1.0-2.1) Ozxds-4-Wduzmkqgo (0.2-0.3) g/dL Gikay-6-Owpgjkkyp (0.5-0.9) g/dL Wyjj-2-Ioehfyeu (0.4-0.6) g/dL Pnvw-8-Hnmonqdu (0.2-0.5) g/dL Gamma Globulins (0.8-1.7) g/dL Abnorm Protein Band 1 (None Detected) g/dL Abnorm Protein Band 2 Abnorm Protein Band 3 PTH Intact Whole Molec (14-64) pg/mL Ur Total Protein 24 Hr (<150) mg/24 h Protein/Creat Ratio 24h (</=84) mg/g creat Urine Total Protein (50-240) mg/L SEUN & SPEP Interp Serum Immunofixation (Not Detected) 12/28/16 12/27/16 12/27/16 Range/Units 06:02 08:16 07:25 WBC (4.8-10.8) K/uL RBC (3.80-5.20) Mil/uL Hgb (11.0-16.0) g/dL Hct (34.0-47.0) % MCV (81.0-99.0) fL MCH (27.0-31.0) pg MCHC (33.0-37.0) g/dL RDW (11.5-14.5) % Plt Count (130-400) K/uL MPV (7.2-11.7) fL Neut % (Auto) (50.0-75.0) % Lymph % (Auto) (20.0-40.0) % Peach % (Auto) (0.0-10.0) % Eos % (Auto) (0.0-4.0) % Baso % (Auto) (0.0-2.0) % Neut # (1.8-7.0) K/uL Lymph # (1.0-4.3) K/uL Peach # (0.0-0.8) K/uL Eos # (0.0-0.7) K/uL Baso # (0.0-0.2) K/uL Neutrophils % (Manual) 90 H (50-75) % Band Neutrophils % 2 (0-2) % Lymphocytes % (Manual) 7 L (20-40) % Monocytes % (Manual) 1 (0-10) % Nucleated RBC % 1 H (0-0) % Platelet Estimate Normal (NORMAL) Large Platelets Present Hypochromasia (manual) Moderate Poikilocytosis (manual Slight Basophilic Stippling Slight Anisocytosis (manual) Slight Microcytosis (manual) Slight Target Cells Slight Tear Drop Cells Slight Sodium (132-148) mmol/L Potassium (3.6-5.2) mmol/L Chloride (98-107) mmol/L Carbon Dioxide (22-30) mmol/L Anion Gap (10-20) BUN (7-17) mg/dL Creatinine (0.7-1.2) MG/DL Est GFR ( Amer) Est GFR (Non-Af Amer) POC Glucose (mg/dL) (65-110) mg/dL Random Glucose (65-105) mg/dL Calcium (8.6-10.4) mg/dl Phosphorus (2.5-4.5) mg/dL Magnesium (1.6-2.3) mg/dL Total Bilirubin (0.2-1.3) mg/dL AST (14-36) U/L ALT (9-52) U/L Alkaline Phosphatase (38-126) U/L Total Protein (6.3-8.3) g/dL Albumin (3.5-5.0) g/dL Albumin (PEP) (3.8-4.8) g/dL Globulin (2.2-3.9) gm/dL Albumin/Globulin Ratio (1.0-2.1) Mnkwr-3-Xuusoltjf (0.2-0.3) g/dL Eevtv-1-Dhiclbisa (0.5-0.9) g/dL Xnad-9-Orhniffy (0.4-0.6) g/dL Tsnb-6-Vwivgbmr (0.2-0.5) g/dL Gamma Globulins (0.8-1.7) g/dL Abnorm Protein Band 1 (None Detected) g/dL Abnorm Protein Band 2 Abnorm Protein Band 3 PTH Intact Whole Molec 11 L (14-64) pg/mL Ur Total Protein 24 Hr 2108 H (<150) mg/24 h Protein/Creat Ratio 24h 3553 H (</=84) mg/g creat Urine Total Protein 2480 H (50-240) mg/L SEUN & SPEP Interp Serum Immunofixation (Not Detected) 12/25/16 Range/Units 21:39 WBC (4.8-10.8) K/uL RBC (3.80-5.20) Mil/uL Hgb (11.0-16.0) g/dL Hct (34.0-47.0) % MCV (81.0-99.0) fL MCH (27.0-31.0) pg MCHC (33.0-37.0) g/dL RDW (11.5-14.5) % Plt Count (130-400) K/uL MPV (7.2-11.7) fL Neut % (Auto) (50.0-75.0) % Lymph % (Auto) (20.0-40.0) % Peach % (Auto) (0.0-10.0) % Eos % (Auto) (0.0-4.0) % Baso % (Auto) (0.0-2.0) % Neut # (1.8-7.0) K/uL Lymph # (1.0-4.3) K/uL Peach # (0.0-0.8) K/uL Eos # (0.0-0.7) K/uL Baso # (0.0-0.2) K/uL Neutrophils % (Manual) (50-75) % Band Neutrophils % (0-2) % Lymphocytes % (Manual) (20-40) % Monocytes % (Manual) (0-10) % Nucleated RBC % (0-0) % Platelet Estimate (NORMAL) Large Platelets Hypochromasia (manual) Poikilocytosis (manual Basophilic Stippling Anisocytosis (manual) Microcytosis (manual) Target Cells Tear Drop Cells Sodium (132-148) mmol/L Potassium (3.6-5.2) mmol/L Chloride (98-107) mmol/L Carbon Dioxide (22-30) mmol/L Anion Gap (10-20) BUN (7-17) mg/dL Creatinine (0.7-1.2) MG/DL Est GFR ( Amer) Est GFR (Non-Af Amer) POC Glucose (mg/dL) (65-110) mg/dL Random Glucose (65-105) mg/dL Calcium (8.6-10.4) mg/dl Phosphorus (2.5-4.5) mg/dL Magnesium (1.6-2.3) mg/dL Total Bilirubin (0.2-1.3) mg/dL AST (14-36) U/L ALT (9-52) U/L Alkaline Phosphatase (38-126) U/L Total Protein (6.3-8.3) g/dL Albumin (3.5-5.0) g/dL Albumin (PEP) 3.0 L (3.8-4.8) g/dL Globulin (2.2-3.9) gm/dL Albumin/Globulin Ratio (1.0-2.1) Hkrra-5-Ybnqqrqfa 0.6 H (0.2-0.3) g/dL Xhmqw-2-Blhgsuwnd 1.0 H (0.5-0.9) g/dL Pbvw-0-Exibxmuf 0.3 L (0.4-0.6) g/dL Fffn-3-Zpvpyrfk 0.3 (0.2-0.5) g/dL Gamma Globulins 0.7 L (0.8-1.7) g/dL Abnorm Protein Band 1 0.23 H (None Detected) g/dL Abnorm Protein Band 2 TEST NOT PERFORMED Abnorm Protein Band 3 TEST NOT PERFORMED PTH Intact Whole Molec (14-64) pg/mL Ur Total Protein 24 Hr (<150) mg/24 h Protein/Creat Ratio 24h (</=84) mg/g creat Urine Total Protein (50-240) mg/L SEUN & SPEP Interp See note Serum Immunofixation Detected H (Not Detected) Laboratory Results - last 24 hr 12/25/16 12/27/16 12/27/16 21:39 07:25 08:16 WBC RBC Hgb Hct MCV MCH MCHC RDW Plt Count MPV Neut % (Auto) Lymph % (Auto) Peach % (Auto) Eos % (Auto) Baso % (Auto) Neut # Lymph # Peach # Eos # Baso # Neutrophils % (Manual) Band Neutrophils % Lymphocytes % (Manual) Monocytes % (Manual) Nucleated RBC % Platelet Estimate Large Platelets Hypochromasia (manual) Poikilocytosis (manual Basophilic Stippling Anisocytosis (manual) Microcytosis (manual) Target Cells Tear Drop Cells Sodium Potassium Chloride Carbon Dioxide Anion Gap BUN Creatinine Est GFR ( Amer) Est GFR (Non-Af Amer) POC Glucose (mg/dL) Random Glucose Calcium Phosphorus Magnesium Total Bilirubin AST ALT Alkaline Phosphatase Total Protein Albumin Albumin (PEP) 3.0 L Globulin Albumin/Globulin Ratio Vtgea-7-Qioivyktu 0.6 H Niukh-0-Tayibkutv 1.0 H Inkn-1-Svxcsxbx 0.3 L Uphf-1-Pjtecses 0.3 Gamma Globulins 0.7 L Abnorm Protein Band 1 0.23 H Abnorm Protein Band 2 TEST NOT PERFORMED Abnorm Protein Band 3 TEST NOT PERFORMED PTH Intact Whole Molec 11 L Ur Total Protein 24 Hr 2108 H Protein/Creat Ratio 24h 3553 H Urine Total Protein 2480 H SEUN & SPEP Interp See note Serum Immunofixation Detected H 12/28/16 12/28/16 12/28/16 06:02 07:51 11:44 WBC RBC Hgb Hct MCV MCH MCHC RDW Plt Count MPV Neut % (Auto) Lymph % (Auto) Peach % (Auto) Eos % (Auto) Baso % (Auto) Neut # Lymph # Peach # Eos # Baso # Neutrophils % (Manual) 90 H Band Neutrophils % 2 Lymphocytes % (Manual) 7 L Monocytes % (Manual) 1 Nucleated RBC % 1 H Platelet Estimate Normal Large Platelets Present Hypochromasia (manual) Moderate Poikilocytosis (manual Slight Basophilic Stippling Slight Anisocytosis (manual) Slight Microcytosis (manual) Slight Target Cells Slight Tear Drop Cells Slight Sodium Potassium Chloride Carbon Dioxide Anion Gap BUN Creatinine Est GFR ( Amer) Est GFR (Non-Af Amer) POC Glucose (mg/dL) 286 H 320 H Random Glucose Calcium Phosphorus Magnesium Total Bilirubin AST ALT Alkaline Phosphatase Total Protein Albumin Albumin (PEP) Globulin Albumin/Globulin Ratio Jtkcl-9-Eanistizl Rnurc-0-Elrveryqn Fswc-4-Kxiloppg Foyb-0-Vcrduxpg Gamma Globulins Abnorm Protein Band 1 Abnorm Protein Band 2 Abnorm Protein Band 3 PTH Intact Whole Molec Ur Total Protein 24 Hr Protein/Creat Ratio 24h Urine Total Protein SEUN & SPEP Interp Serum Immunofixation 12/28/16 12/28/16 12/29/16 16:32 21:26 06:16 WBC RBC Hgb Hct MCV MCH MCHC RDW Plt Count MPV Neut % (Auto) Lymph % (Auto) Peach % (Auto) Eos % (Auto) Baso % (Auto) Neut # Lymph # Peach # Eos # Baso # Neutrophils % (Manual) Band Neutrophils % Lymphocytes % (Manual) Monocytes % (Manual) Nucleated RBC % Platelet Estimate Large Platelets Hypochromasia (manual) Poikilocytosis (manual Basophilic Stippling Anisocytosis (manual) Microcytosis (manual) Target Cells Tear Drop Cells Sodium 134 Potassium 5.1 Chloride 94 L Carbon Dioxide 25 Anion Gap 20 BUN 95 H Creatinine 6.2 H Est GFR ( Amer) 8 Est GFR (Non-Af Amer) 7 POC Glucose (mg/dL) 294 H 301 H Random Glucose 213 H Calcium 11.5 H Phosphorus 8.6 H Magnesium 2.4 H Total Bilirubin 0.5 AST 18 ALT 25 Alkaline Phosphatase 54 Total Protein 6.0 L Albumin 3.4 L Albumin (PEP) Globulin 2.5 Albumin/Globulin Ratio 1.4 Meglm-8-Bmqstefzq Onzlp-2-Duaapogxh Tndi-4-Onemnxrn Qepl-3-Arbuqhwo Gamma Globulins Abnorm Protein Band 1 Abnorm Protein Band 2 Abnorm Protein Band 3 PTH Intact Whole Molec Ur Total Protein 24 Hr Protein/Creat Ratio 24h Urine Total Protein SEUN & SPEP Interp Serum Immunofixation 12/29/16 06:18 WBC 30.3 H D RBC 2.23 L Hgb 7.0 L Hct 21.9 L MCV 98.1 MCH 31.6 H MCHC 32.2 L RDW 16.6 H Plt Count 267 MPV 8.4 Neut % (Auto) 82.1 H Lymph % (Auto) 13.0 L Peach % (Auto) 4.6 Eos % (Auto) 0.1 Baso % (Auto) 0.2 Neut # 24.9 H Lymph # 3.9 Peach # 1.4 H Eos # 0.0 Baso # 0.1 Neutrophils % (Manual) Band Neutrophils % Lymphocytes % (Manual) Monocytes % (Manual) Nucleated RBC % Platelet Estimate Large Platelets Hypochromasia (manual) Poikilocytosis (manual Basophilic Stippling Anisocytosis (manual) Microcytosis (manual) Target Cells Tear Drop Cells Sodium Potassium Chloride Carbon Dioxide Anion Gap BUN Creatinine Est GFR ( Amer) Est GFR (Non-Af Amer) POC Glucose (mg/dL) Random Glucose Calcium Phosphorus Magnesium Total Bilirubin AST ALT Alkaline Phosphatase Total Protein Albumin Albumin (PEP) Globulin Albumin/Globulin Ratio Yztpu-8-Lwqytbuya Xdgrq-0-Lfbuhbnmp Bjsw-9-Golsteec Marc-8-Hilpraet Gamma Globulins Abnorm Protein Band 1 Abnorm Protein Band 2 Abnorm Protein Band 3 PTH Intact Whole Molec Ur Total Protein 24 Hr Protein/Creat Ratio 24h Urine Total Protein SEUN & SPEP Interp Serum Immunofixation EKG/Cardiology Studies: Cardiology / EKG Studies 12/28/16 10:12 EKG [ELECTROCARDIOGRAM] Stat Comment: Mode Of Transportation: Reason For Exam: afib Fingerstick Blood Sugar Results: 301 Review of Systems - Review of Systems Systems not reviewed;Unavailable: Uncooperative Critical Care Progress Note - Nutrition Nutrition: Nutrition Category Date Time Status Renal Diet [DIET] Diets 12/25/16 Dinner Active Assessment/Plan (1) CHF exacerbation Current Visit: No Status: Acute (2) Acute kidney injury superimposed on chronic kidney disease Current Visit: No Status: Acute (3) Anemia Current Visit: No Status: Chronic (4) Atrial fibrillation with controlled ventricular response Current Visit: No Status: Acute (5) HTN (hypertension) Current Visit: No Status: Chronic (6) Leucocytosis Current Visit: No Status: Acute (7) History of asthma Current Visit: Yes Status: Acute (8) Gastritis Current Visit: No Status: Acute (9) Diabetes 1.5, 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 Bone marrow biopsy cancelled as patient with labored breathing 2/2 to her refusing bipap. Clarification on her past diagnosis -> Patient has hx of COPD, severe pulmonary hypertension; no history of pulmonary fibrosis; discussed with patient's pulm. Cardio: CHF, A-Fib, HTN; hx of cardiac cath w/ normal findings 03/2015 - 06/28/16 Echo showed EF of 83% with borderline concentric LVH. Mild-moderate mitral regurgitation - 12/01 EKG: normal, NSR - ProBNP today: [id number] - 12/27 Echo: LVEF is 60%, moderate left ventricular diastolic dysfunction. Mitral valve is calcicfied and displays decreased opening. Severe pulmonary hypertension. - f/u new EKG - Cardiology, Dr Little, consulted - - Continue home med Amiodarone 200 mg daily - Continue home med Cardizem 240 mg daily Nephro: Acute Renal Failure - s/p permacath placement (12/25) with plan for schedule HD on MWF - Nephrology Dr. Bill consulted - 12/25 Urinalysis: +leuk esterase, 2+ protein, + Wbc and + RBC - 12/25 urine culture: negative - 12/25 lambda light chain elevated 1021, kappa light chain normal 17.5 - 12/25 24 hr urine Creatinine 0.59, Protein 2108 - Calcium levels downtrending - f/u SPEP, IPEP, 24 hr urine UPEP, urine IPEP - Previous SPEP (09/27 and 12/02): M-spike in gamma globulin region ID: Elevated WBCs; - procalcitonin wnl; afebrile - Doxycycline 100mg iv q12 Day 5 (started on 12/25) - Zosyn 2.25 gm IV Q8 Day 5 (started on 12/25) - ur cx negative, blood cx negative, legionella urine Ag negative, mycoplasma pneumoniae IgM negative Heme: Anemia - s/p transfusion of 1u pRBC - monitor CBC daily - Continue home meds Ferrous sulfate 325 mg daily - 12/25 CT abdomen & pelvis: 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 - records from [facility] [place] show Hgb 12.7 in 03/2015 - Bone Marrow biopsy was not attempted today due to patient's O2 desaturation this morning. Dr. Martinez will plan for bone marrow biopsy as outpatient in the future. - Consult hematology Oncology, Dr. Martinez Pulm: h/o asthma; h/o COPD; h/o pulmonary hypertension - continue home meds: Pulmicort Flexhaler 90 mcg INH RQ12hr - f/u sputum culture Endo: DM, hypothyroidism - Continue home meds: Glipizide 10 mg daily; Levothyroxine 75 mcg daily - Start low ISS protocol - daily Accuchecks ACHS GI: Gastritis, Hepatitis C (treated) - Continue home meds Omeprazole 20 mg daily - RUQ pain -> Amylase wnl, lipase wnl - 12/22 stool occult blood: negative Msk: generalized LE pain, h/o back pain - Continue home meds: Magnesium oxide 400 mg BID; Tramadol-Acetaminophen 32.5- 325 mg 2 tablets Q6hr - Lidoderm patch 5% daily prn Prophylaxis: DVT: SCD GI: Pepcid 20 mg PO daily PT/OT eval <Jc Stevens - Last Filed: 12/29/16 18:11> CCU Objective - Vital Signs / Intake & Output Vital Signs (Last 4 hours): Vital Signs Resp 12/29/16 15:43 21 Intake and Output (Last 8hrs): Intake & Output 12/29/16 12/29/16 12/29/16 06:59 14:59 22:59 Intake Total 290 720 Output Total 350 Balance 290 370 Weight 190 lb 14.725 oz Intake: Intake, IV Amount 50 Right Wrist 50 Oral 240 720 Output: Urine 300 Urine, Voided 300 Stool 50 Emesis 0 Other: # Voids Urine, Voided 1 - Medications Active Medications: Active Medications Generic Name Dose Route Start Last Admin Trade Name Angeloq PRN Reason Stop Dose Admin Famotidine 20 mg 12/27/16 10:00 12/29/16 09:10 Pepcid PO Not Given DAILY [facility] Ferrous Sulfate 325 mg 12/26/16 10:00 12/29/16 09:08 Feosol PO Not Given DAILY [facility] Glipizide 10 mg 12/27/16 10:00 12/29/16 09:09 Glucotrol PO Not Given DAILY [facility] Heparin Sodium (Porcine) 5,000 units 12/27/16 06:00 12/29/16 17:10 Heparin SC Not Given Q8 [facility] Piperacillin Sod/Tazobactam Sod 2.25 gm in 50 mls @ 100 mls/hr 12/25/16 23:00 12/29/16 16:11 Zosyn 2.25 Gm Iv Premix IVPB 100 mls/hr Q8H [facility] Administration Doxycycline Hyclate 100 mg/ 100 mls @ 100 mls/hr 12/25/16 21:00 12/29/16 09: 07 Sodium Chloride IVPB Not Given Q12H [facility] Insulin Human Regular 0 unit 12/26/16 16:30 12/29/16 17:02 Novolin R SC 2 unit ACHS [facility] Administration Protocol Levothyroxine Sodium 75 mcg 12/26/16 06:30 12/29/16 06:34 Synthroid PO 75 mcg DAILY@0630 [facility] Administration Methylprednisolone 40 mg 12/27/16 17:45 12/29/16 17:03 Solu-Medrol IVP 40 mg Q8H [facility] Administration Sevelamer Carbonate 1,600 mg 12/30/16 08:00 Renvela PO TIDCC [facility] - Patient Studies Lab Studies: Microbiology Studies 12/25/16 15:45 Blood Culture - Preliminary Blood NO GROWTH AFTER 3 DAYS 12/25/16 16:10 Blood Culture - Preliminary Blood NO GROWTH AFTER 3 DAYS Lab Studies 12/29/16 12/29/16 12/29/16 Range/Units 16:18 12:06 08:29 WBC (4.8-10.8) K/uL RBC (3.80-5.20) Mil/uL Hgb (11.0-16.0) g/dL Hct (34.0-47.0) % MCV (81.0-99.0) fL MCH (27.0-31.0) pg MCHC (33.0-37.0) g/dL RDW (11.5-14.5) % Plt Count (130-400) K/uL MPV (7.2-11.7) fL Neut % (Auto) (50.0-75.0) % Lymph % (Auto) (20.0-40.0) % Peach % (Auto) (0.0-10.0) % Eos % (Auto) (0.0-4.0) % Baso % (Auto) (0.0-2.0) % Neut # (1.8-7.0) K/uL Lymph # (1.0-4.3) K/uL Peach # (0.0-0.8) K/uL Eos # (0.0-0.7) K/uL Baso # (0.0-0.2) K/uL Puncture Site pCO2 (35-45) mm/Hg pO2 (80-100) mm/Hg HCO3 (21-28) mmol/L ABG pH (7.35-7.45) ABG Total CO2 (22-28) mmol/L ABG O2 Saturation (95-98) % ABG Base Excess (-2.0-3.0) mmol/L ABG Hemoglobin (11.7-17.4) g/dL ABG Carboxyhemoglobin (0.5-1.5) % POC ABG HHb (Measured) (0.0-5.0) % ABG Methemoglobin (0.0-3.0) % Walt Test A-a O2 Difference mm/Hg Respiratory Index Hgb O2 Saturation (95.0-98.0) % FiO2 % Sodium (132-148) mmol/L Potassium (3.6-5.2) mmol/L Chloride (98-107) mmol/L Carbon Dioxide (22-30) mmol/L Anion Gap (10-20) BUN (7-17) mg/dL Creatinine (0.7-1.2) MG/DL Est GFR ( Amer) Est GFR (Non-Af Amer) POC Glucose (mg/dL) 211 H 166 H 296 H (65-110) mg/dL Random Glucose (65-105) mg/dL Calcium (8.6-10.4) mg/dl Phosphorus (2.5-4.5) mg/dL Magnesium (1.6-2.3) mg/dL Total Bilirubin (0.2-1.3) mg/dL AST (14-36) U/L ALT (9-52) U/L Alkaline Phosphatase (38-126) U/L Total Protein (6.3-8.3) g/dL Albumin (3.5-5.0) g/dL Globulin (2.2-3.9) gm/dL Albumin/Globulin Ratio Mstoz-0-[id number] Relative % Brclu-1-Zmwotmsgq Relative % Beta Globulins Relative % Gamma Globulins Relative % TSH 3rd Generation (0.46-4.68) mIU/L Urine Albumin (PEP) Relative % Ur Protein Fractions 12/29/16 12/29/16 12/29/16 Range/Units 07:45 06:18 06:16 WBC 30.3 H D (4.8-10.8) K/uL RBC 2.23 L (3.80-5.20) Mil/uL Hgb 7.0 L (11.0-16.0) g/dL Hct 21.9 L (34.0-47.0) % MCV 98.1 (81.0-99.0) fL MCH 31.6 H (27.0-31.0) pg MCHC 32.2 L (33.0-37.0) g/dL RDW 16.6 H (11.5-14.5) % Plt Count 267 (130-400) K/uL MPV 8.4 (7.2-11.7) fL Neut % (Auto) 82.1 H (50.0-75.0) % Lymph % (Auto) 13.0 L (20.0-40.0) % Peach % (Auto) 4.6 (0.0-10.0) % Eos % (Auto) 0.1 (0.0-4.0) % Baso % (Auto) 0.2 (0.0-2.0) % Neut # 24.9 H (1.8-7.0) K/uL Lymph # 3.9 (1.0-4.3) K/uL Peach # 1.4 H (0.0-0.8) K/uL Eos # 0.0 (0.0-0.7) K/uL Baso # 0.1 (0.0-0.2) K/uL Puncture Site Rb pCO2 60 H (35-45) mm/Hg pO2 50 L (80-100) mm/Hg HCO3 21.3 (21-28) mmol/L ABG pH 7.20 L (7.35-7.45) ABG Total CO2 25.3 (22-28) mmol/L ABG O2 Saturation 86.9 L (95-98) % ABG Base Excess -4.5 L (-2.0-3.0) mmol/L ABG Hemoglobin 7.5 L (11.7-17.4) g/dL ABG Carboxyhemoglobin 2.3 H (0.5-1.5) % POC ABG HHb (Measured) 12.7 H (0.0-5.0) % ABG Methemoglobin 0.8 (0.0-3.0) % Walt Test Na A-a O2 Difference 588.0 mm/Hg Respiratory Index 11.8 Hgb O2 Saturation 84.3 L (95.0-98.0) % FiO2 100.0 % Sodium 134 (132-148) mmol/L Potassium 5.1 (3.6-5.2) mmol/L Chloride 94 L (98-107) mmol/L Carbon Dioxide 25 (22-30) mmol/L Anion Gap 20 (10-20) BUN 95 H (7-17) mg/dL Creatinine 6.2 H (0.7-1.2) MG/DL Est GFR ( Amer) 8 Est GFR (Non-Af Amer) 7 POC Glucose (mg/dL) (65-110) mg/dL Random Glucose 213 H (65-105) mg/dL Calcium 11.5 H (8.6-10.4) mg/dl Phosphorus 8.6 H (2.5-4.5) mg/dL Magnesium 2.4 H (1.6-2.3) mg/dL Total Bilirubin 0.5 (0.2-1.3) mg/dL AST 18 (14-36) U/L ALT 25 (9-52) U/L Alkaline Phosphatase 54 (38-126) U/L Total Protein 6.0 L (6.3-8.3) g/dL Albumin 3.4 L (3.5-5.0) g/dL Globulin 2.5 (2.2-3.9) gm/dL Albumin/Globulin Ratio 1.4 Izgdj-9-Gkfgaroyo Relative % Itwuu-8-Kiygmojbk Relative % Beta Globulins Relative % Gamma Globulins Relative % TSH 3rd Generation 4.84 H (0.46-4.68) mIU/L Urine Albumin (PEP) Relative % Ur Protein Fractions 12/28/16 12/27/16 Range/Units 21:26 07:25 WBC (4.8-10.8) K/uL RBC (3.80-5.20) Mil/uL Hgb (11.0-16.0) g/dL Hct (34.0-47.0) % MCV (81.0-99.0) fL MCH (27.0-31.0) pg MCHC (33.0-37.0) g/dL RDW (11.5-14.5) % Plt Count (130-400) K/uL MPV (7.2-11.7) fL Neut % (Auto) (50.0-75.0) % Lymph % (Auto) (20.0-40.0) % Peach % (Auto) (0.0-10.0) % Eos % (Auto) (0.0-4.0) % Baso % (Auto) (0.0-2.0) % Neut # (1.8-7.0) K/uL Lymph # (1.0-4.3) K/uL Peach # (0.0-0.8) K/uL Eos # (0.0-0.7) K/uL Baso # (0.0-0.2) K/uL Puncture Site pCO2 (35-45) mm/Hg pO2 (80-100) mm/Hg HCO3 (21-28) mmol/L ABG pH (7.35-7.45) ABG Total CO2 (22-28) mmol/L ABG O2 Saturation (95-98) % ABG Base Excess (-2.0-3.0) mmol/L ABG Hemoglobin (11.7-17.4) g/dL ABG Carboxyhemoglobin (0.5-1.5) % POC ABG HHb (Measured) (0.0-5.0) % ABG Methemoglobin (0.0-3.0) % Walt Test A-a O2 Difference mm/Hg Respiratory Index Hgb O2 Saturation (95.0-98.0) % FiO2 % Sodium (132-148) mmol/L Potassium (3.6-5.2) mmol/L Chloride (98-107) mmol/L Carbon Dioxide (22-30) mmol/L Anion Gap (10-20) BUN (7-17) mg/dL Creatinine (0.7-1.2) MG/DL Est GFR ( Amer) Est GFR (Non-Af Amer) POC Glucose (mg/dL) 301 H (65-110) mg/dL Random Glucose (65-105) mg/dL Calcium (8.6-10.4) mg/dl Phosphorus (2.5-4.5) mg/dL Magnesium (1.6-2.3) mg/dL Total Bilirubin (0.2-1.3) mg/dL AST (14-36) U/L ALT (9-52) U/L Alkaline Phosphatase (38-126) U/L Total Protein (6.3-8.3) g/dL Albumin (3.5-5.0) g/dL Globulin (2.2-3.9) gm/dL Albumin/Globulin Ratio 0.15 Ivqgp-1-Eqckiudhs 3.8 Relative % Qpzpq-9-Kymwrwsqy 5.7 Relative % Beta Globulins 6.1 Relative % Gamma Globulins 71.5 Relative % TSH 3rd Generation (0.46-4.68) mIU/L Urine Albumin (PEP) 13.0 Relative % Ur Protein Fractions See note Laboratory Results - last 24 hr 12/27/16 12/28/16 12/29/16 07:25 21:26 06:16 WBC RBC Hgb Hct MCV MCH MCHC RDW Plt Count MPV Neut % (Auto) Lymph % (Auto) Peach % (Auto) Eos % (Auto) Baso % (Auto) Neut # Lymph # Peach # Eos # Baso # Puncture Site pCO2 pO2 HCO3 ABG pH ABG Total CO2 ABG O2 Saturation ABG Base Excess ABG Hemoglobin ABG Carboxyhemoglobin POC ABG HHb (Measured) ABG Methemoglobin Walt Test A-a O2 Difference Respiratory Index Hgb O2 Saturation FiO2 Sodium 134 Potassium 5.1 Chloride 94 L Carbon Dioxide 25 Anion Gap 20 BUN 95 H Creatinine 6.2 H Est GFR ( Amer) 8 Est GFR (Non-Af Amer) 7 POC Glucose (mg/dL) 301 H Random Glucose 213 H Calcium 11.5 H Phosphorus 8.6 H Magnesium 2.4 H Total Bilirubin 0.5 AST 18 ALT 25 Alkaline Phosphatase 54 Total Protein 6.0 L Albumin 3.4 L Globulin 2.5 Albumin/Globulin Ratio 0.15 1.4 Cyalu-4-Xunfjsylg 3.8 Ctmuu-2-Rlleiidkq 5.7 Beta Globulins 6.1 Gamma Globulins 71.5 TSH 3rd Generation 4.84 H Urine Albumin (PEP) 13.0 Ur Protein Fractions See note 12/29/16 12/29/16 12/29/16 06:18 07:45 08:29 WBC 30.3 H D RBC 2.23 L Hgb 7.0 L Hct 21.9 L MCV 98.1 MCH 31.6 H MCHC 32.2 L RDW 16.6 H Plt Count 267 MPV 8.4 Neut % (Auto) 82.1 H Lymph % (Auto) 13.0 L Peach % (Auto) 4.6 Eos % (Auto) 0.1 Baso % (Auto) 0.2 Neut # 24.9 H Lymph # 3.9 Peach # 1.4 H Eos # 0.0 Baso # 0.1 Puncture Site Rb pCO2 60 H pO2 50 L HCO3 21.3 ABG pH 7.20 L ABG Total CO2 25.3 ABG O2 Saturation 86.9 L ABG Base Excess -4.5 L ABG Hemoglobin 7.5 L ABG Carboxyhemoglobin 2.3 H POC ABG HHb (Measured) 12.7 H ABG Methemoglobin 0.8 Walt Test Na A-a O2 Difference 588.0 Respiratory Index 11.8 Hgb O2 Saturation 84.3 L FiO2 100.0 Sodium Potassium Chloride Carbon Dioxide Anion Gap BUN Creatinine Est GFR ( Amer) Est GFR (Non-Af Amer) POC Glucose (mg/dL) 296 H Random Glucose Calcium Phosphorus Magnesium Total Bilirubin AST ALT Alkaline Phosphatase Total Protein Albumin Globulin Albumin/Globulin Ratio Nqxea-0-Mqugnsvhc Xqegj-5-Rvcmxffvj Beta Globulins Gamma Globulins TSH 3rd Generation Urine Albumin (PEP) Ur Protein Fractions 12/29/16 12/29/16 12:06 16:18 WBC RBC Hgb Hct MCV MCH MCHC RDW Plt Count MPV Neut % (Auto) Lymph % (Auto) Peach % (Auto) Eos % (Auto) Baso % (Auto) Neut # Lymph # Peach # Eos # Baso # Puncture Site pCO2 pO2 HCO3 ABG pH ABG Total CO2 ABG O2 Saturation ABG Base Excess ABG Hemoglobin ABG Carboxyhemoglobin POC ABG HHb (Measured) ABG Methemoglobin Walt Test A-a O2 Difference Respiratory Index Hgb O2 Saturation FiO2 Sodium Potassium Chloride Carbon Dioxide Anion Gap BUN Creatinine Est GFR ( Amer) Est GFR (Non-Af Amer) POC Glucose (mg/dL) 166 H 211 H Random Glucose Calcium Phosphorus Magnesium Total Bilirubin AST ALT Alkaline Phosphatase Total Protein Albumin Globulin Albumin/Globulin Ratio Zxaga-0-Tklczgvxj Rfjkc-3-Aeqsiarjr Beta Globulins Gamma Globulins TSH 3rd Generation Urine Albumin (PEP) Ur Protein Fractions Critical Care Progress Note - Nutrition Nutrition: Nutrition Category Date Time Status Renal Diet [DIET] Diets 12/25/16 Dinner Active Attending/Attestation - Attestation I have personally seen and examined this patient.: Yes I have fully participated in the care of the patient.: Yes I have reviewed all pertinent clinical information: Yes Notes (Text): I have seen and examined the patient. Medical records, lab studies, and imaging were reviewed by me and a management plan was formulated on multidisciplinary rounds with resident Dr. Bishop. I agree with their above documented assessment and plan. Patient is in hypoxic respiratory failure from decompensated acute on chronic diastolic heart failure with renal failure requiring daily dialysis secondary to Multiple Myeloma. Patient's mortality risk is very high. Critical Care Time 35 minutes. Multi-disciplinary rounds were performed with house staff, nursing, speech therapy, respiratory therapy, pharmacy and nutrition with integrated input from the primary team/attending and other consulting services. The documented time is cumulative and includes review of patient data/exams/labs/chart review and examination of the patient on rounds and throughout the day; time is exclusive of any procedures or teaching time.
[2016-12-29 07:48] LABS: ARTERIAL BLOOD HGB O2 SAT 84.3 % (95.0-98.0); CARBOXYHEMOGLOBIN 2.3 % (0.5-1.5); DRAW SITE RB; HHB 12.7 % (0.0-5.0); METHEMOGLOBIN 0.8 % (0.0-3.0)
[2016-12-29] MEDS: (Novolin R) Insulin Human Regular 100 units/ml vial SC SCH ×4 (08:39→22:15)
[2016-12-29] MEDS: Sevelamer Carb 0.8 gm/Packet PO SCH ×2 (08:40→12:30)
--- NOTE | 2016-12-29 09:29 | CP.PCM.PN ---
Subjective - Date & Time of Evaluation Date of Evaluation: 12/29/16 Time of Evaluation: 09:30 - Subjective Subjective: Medical Attending Note: Patient seen, examined, and case discussed with day-time resident. Patient denies headache, reports shortness of breathe, reports dry cough, denies abdominal pain, denies constipation, denies vomitting, and patient does not make urine. Patient is currently getting dialysis this morning. Patient is scheduled for bone marrow biopsy at 1:30PM with heme-onc. Objective - Vital Signs/Intake and Output Vital Signs (last 24 hours): Temp Pulse Resp BP Pulse Ox 98.1 F 82 24 117/42 L 86 L 12/29/16 04:00 12/29/16 06:00 12/29/16 07:55 12/29/16 05:56 12/29/16 06:00 Intake and Output: 12/29/16 12/29/16 06:59 18:59 Intake Total 560 Balance 560 - Medications Medications: Current Medications Famotidine (Pepcid) 20 mg PO DAILY [facility] Last Admin: 12/29/16 09:10 Dose: Not Given Ferrous Sulfate (Feosol) 325 mg PO DAILY [facility] Last Admin: 12/29/16 09:08 Dose: Not Given Glipizide (Glucotrol) 10 mg PO DAILY [facility] Last Admin: 12/29/16 09:09 Dose: Not Given Heparin Sodium (Porcine) (Heparin) 5,000 units SC Q8 [facility] Last Admin: 12/29/16 06:34 Dose: 5,000 units Piperacillin Sod/Tazobactam Sod (Zosyn 2.25 Gm Iv Premix) 2.25 gm in 50 mls @ 100 mls/hr IVPB Q8H [facility] Last Admin: 12/29/16 06:34 Dose: 100 mls/hr Doxycycline Hyclate 100 mg/ (Sodium Chloride) 100 mls @ 100 mls/hr IVPB Q12H [facility] Last Admin: 12/29/16 09:07 Dose: Not Given Insulin Human Regular (Novolin R) 0 unit SC ACHS [facility] PRN Reason: Protocol Last Admin: 12/29/16 08:39 Dose: 3 unit Levothyroxine Sodium (Synthroid) 75 mcg PO DAILY@0630 [facility] Last Admin: 12/29/16 06:34 Dose: 75 mcg Methylprednisolone (Solu-Medrol) 40 mg IVP Q8H [facility] Last Admin: 12/29/16 09:07 Dose: Not Given Sevelamer Carbonate (Renvela) 0.8 gm PO TIDCC [facility] Last Admin: 12/29/16 08:40 Dose: 0.8 gm - Labs Labs: 12/29/16 06:18 12/29/16 06:16 PT 13.1 SECONDS (9.7-12.2) H 12/26/16 08:05 INR 1.2 12/26/16 08:05 APTT 39 SECONDS (21-34) H 12/26/16 08:05 - Constitutional Appears: Non-toxic, In Acute Distress - Head Exam Head Exam: NORMAL INSPECTION Additional comments: obese female Tunnelled dialysis on HD (right side of chest) - Eye Exam Eye Exam: EOMI - ENT Exam ENT Exam: Mucous Membranes Moist - Respiratory Exam Respiratory Exam: Decreased Breath Sounds, NORMAL BREATHING PATTERN. absent: Stridor - Cardiovascular Exam Cardiovascular Exam: REGULAR RHYTHM, +S1, +S2 - GI/Abdominal Exam GI & Abdominal Exam: Distended, Soft, Normal Bowel Sounds. absent: Firm, Guarding, Rigid, Tenderness, Rebound Additional comments: obese habitus - Extremities Exam Extremities Exam: absent: Pedal Edema, Tenderness - Neurological Exam Neurological Exam: Alert, Awake, Oriented x3 - Psychiatric Exam Psychiatric exam: Normal Affect, Normal Mood - Skin Skin Exam: Normal Color, Warm Assessment and Plan - Assessment and Plan (Free Text) Assessment: (1) Fluid Overload Assessment and Plan: * ProBNP today: 46527 * Contributing factors: acute on chronic kidney disease and hx of diastolic congestive heart failure * Vascular Surgery: Dr. Ontiveros-->notified by emergency room; for emergent dialysis access * Nephrology: Dr Bill on board-->acute on chronic kidney insufficiency, hypercalcemia; emergent dialysis * Chest Xray (12/25/16): prominent diffuse increased interstital lung markings throughout both lungs suggestive for edema and/or infiltrate * Chest Xray (12/27/16): persistent prominent diffuse increased consolidative changes throughtout both lungs with coarse reticular interstital airspce opacities. More focal confluent airspace consolidative changes in the right right midlung zone and left lung base with small left plueral effusion. Cardiomegaly * Echocardiogram (12/27/16) moderate left ventricular diastolic dysfunction. left atrium is moderately dilated. right atrium is mildly dilated, mitral annular calcification is moderate. mitral velve is calcified and displays decreased opening. Mild mitral valve stenosis. severe pulmonary hypertension., EF: 60% * Monitor intake output * Daily weights * 12/27/16: 2nd dialysis session today--> 2 liters removed * 12/28/16: Spoke with Dr. Bill-->dialysis for tomorrow; pending chest xray read (2) Acute kidney injury superimposed on chronic kidney disease Assessment and Plan: * Nephrology Dr. Bill consulted-->help appreciated * Hepatitis panel: Negative * HIV: negative * Mycoplasma Igm: negative * Legionella; Negative * Vascular Surgery: Dr. 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 * Recommended for SPEP, IPEP--->pending * free light chain lambda: 920485.7 * free light chain kappa: 17.5 * 24 hr urine UPEP-->resulting--> 2108 (high) * urine IPE * beta2 microglobulin * LDH: 522 * Prior SPEP: (12/02/16): M Adarsh migrating in the gamma globulin region; 12/25 : M spike * immuonfixation: pending * BUN/Cr elevated today: 90/7.7 * 12/25 Urinanalysis: +leuk esterase, 2+ protein, + Wbc and + RBC * urine culture: no growth (<1000 CFU/ml) * Ct Abdomen/Pelvis (12/25/16): No evidence of nephrolithiasis or hydronephrosis , 1,5 cm exophyitc high attentuation lesion at the mid to lower pole of right kidney. possibility of renal cell carcnioma should be excluded. 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 Airspace consolidation at left lobe associated with small pleural fussion suspicious for pneumonia Status: Acute (3) Possible Multiple Myeloma Assessment and Plan: * Criteria: anemia, renal insufficiency, hypercalcemia * Nephrology Dr. Bill consulted-->help appreciated * Vascular Surgery: Dr. Ontiveros-->help appreciated * Surgery consulted and will place permacath with plan for HD today * Heme-Oncology: Dr Martinez-->help appreciated * Possible patient has light chain multiple myeloma * free light chain lambda: 027547.7 * free light chain kappa: 17.5 * 24 hr urine UPEP--> 2108 (high) * urine IPE--->--->pending * beta2 microglobulin--->--->pending * LDH: 522 * Prior SPEP: (12/02/16): M Adarsh migrating in the gamma globulin region; 12/25 : M spike * 12/27: discussed with Dr. Martinez, patient's for bone marrow biopsy for Sunday and possible start chemotherapy. * Echocardiogram (12/27/16) moderate left ventricular diastolic dysfunction. left atrium is moderately dilated. right atrium is mildly dilated, mitral annular calcification is moderate. mitral valve is calcified and displays decreased opening. Mild mitral valve stenosis. severe pulmonary hypertension., EF: 60% * Monitor intake output * BUN/Cr elevated today: 90/7.7 * 12/25 Urinanalysis: +leuk esterase, 2+ protein, + Wbc and + RBC * urine culture: no growth (<1000 CFU/ml) * Ct Abdomen/Pelvis (12/25/16): No evidence of nephrolithiasis or hydronephrosis , 1,5 cm exophyitc high attentuation lesion at the mid to lower pole of right kidney. possibility of renal cell carcnioma should be excluded. 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 Airspace consolidation at left lobe associated with small pleural fussion suspicious for pneumonia * Patient to have bone marrow biopsy at 1:30PM today Status: Acute (4) Hypercalcemia Assessment and Plan: * Nephrology (Dr. Bill) on board-->help appreciated * Heme-onc (Dr. Martinez) on board--->help appreciated * Bone marrow biopsy today at 130PM * PTH related Protein: pending * PTH intact: 14 * Vitamin D: 66.6 * ОЛЕГ: 28 * Ionized Calcium: 6.7 * Possible patient has light chain multiple myeloma * Recommended for SPEP, IPEP--->pending * free light chain lambda: 269262.7 * free light chain kappa: 17.5 * 24 hr urine UPEP--> 2108 (high) * urine IPE--->--->pending * beta2 microglobulin--->--->pending * LDH: 522 * Prior SPEP: (12/02/16): M Adarsh migrating in the gamma globulin region; 12/25 : M spike Status: Acute (5) Possible CHF exacerbation Assessment and Plan: * History of diastolic congestive heart failure * Cardiology (Dr. Little) on consult; covering for Dr. Lynch's patients * ProBNP today: 03458 * Echocardiogram (12/27/16) moderate left ventricular diastolic dysfunction. left atrium is moderately dilated. right atrium is mildly dilated, mitral annular calcification is moderate. mitral valve is calcified and displays decreased opening. Mild mitral valve stenosis. severe pulmonary hypertension., EF: 60% * monitor intake and output * Daily Weights Status: Acute (6) Anemia Assessment and Plan: * Heme-onc (Dr. Martinez) on board-->help appreciated * Discussed with PMD: Dr. Winkler-->patient has had workup including GI workup in 2017 in regards to anemia * Thought to be chronic secondary to kidney disease * Continue home meds Ferrous sulfate 325 mg daily * s/p 1 unit of PRBC on 12/25 7.2 * 12/25 stool occult blood: negative * Prior hospitalizations included in patient's chart; awaiting copy of report of GI workup Status: Chronic (7) Atrial fibrillation Assessment and Plan: * Cardiology (Dr. Little) covering for Dr. Lynch's patients * Continue home meds: Amiodarone 200 mg daily, Cardizem 240 mg daily * Patient is not on anticoagulation secondary to anemia * CHADS: 4 (DM, Age, HTN, CHF) * HASBLED:2 (Age and Renal Disease) Status: Acute (8) HTN (hypertension) Assessment and Plan: * Monitor vital signs * Restart Amiodarone 200mg PO daily and Cardizem 240mg PO daily Status: Chronic (9) Leukocytosis Assessment and Plan: * In the ED, order for dose of Zosyn and Vancomycin on 12/25 * Strep, legionella: negative and mycoplasma IgM: negative * Patient recently at the hospital within 90 days-->consideration for possible hospital acquired pneumonia * Patient does not meet sepsis critera (04/19: leukocytosis) * Start Zosyn 2.25 gr IV Q8H (active since 12/25/16) and Doxcycline 100mg IV Q 12hours (active since 12/25/16) * Blood Culture (12/25/16): no growth after 3 days X2 * Urine culture (12/25/16): <1000 * Procalcitonin low * White count rebounded-->reordered for blood cultures (note patient is on IV steroids) Status: Acute (10) History of pulmonary fibrosis Assessment and Plan: * Consult: Dr Kessler (pulmonary fibrosis) on board * continue home meds: Pulmicort Flexhaler 90 mcg INH RQ12hr * Start on Solumedrol 40mg IV Q 8 hours per pulmonary (active since 12/27/16) Status: Chronic (11) History of Gastritis Assessment and Plan: * Pepcid 20mg PO daily Status: Chronic (12) Diabetes 1.5, managed as type 2 Assessment and Plan: * Continue home meds: Glipizide 10 mg daily * daily Accuchecks QAC and HS * Yueayuresgy7l: 6.1 Status: Chronic (13) Hypothyroidism Status: Chronic * TSH: 4.84 * Levothyroxine 75mcg/fay Status: Chronic (14) Hepatitis Assessment and Plan: * RUQ pain will f/u Amylase, lipase which are normal * LFTs are normal Status: Chronic (15) History of back pain Assessment and Plan: * held Magnesium oxide 400 mg BID; Tramadol-Acetaminophen 32.5-325 mg 2 tablets Q6hr * likely secondary to lytic lesion likely secondary to Multiple Myeloma Status: Acute (16) Lower extremity pain Assessment and Plan: * Held Magnesium oxide 400 mg BID; Tramadol-Acetaminophen 32.5-325 mg 2 tablets Q6hr Status: Acute (17) Prophylactic measure Assessment and Plan: * DVT: SCDs b/l; hold Heparin 5000 units subq 8 hours for bone marrow biopsy this afternoon * GI: Pepcid 20mg PO daily * Monitor intake and output * Daily Weight * PT/OT eval Status: Acute Plan for bone marrow biospy-->this afternoon F/u chest xray w rib not officially read Patient currently having dialysis at bedside Attending/Attestation - Attestation I have personally seen and examined this patient.: Yes I have fully participated in the care of the patient.: Yes I have reviewed all pertinent clinical information, including history, physical exam and plan: Yes
--- NOTE | 2016-12-29 10:50 | RAD ---
PROCEDURE: Radiographs of the Chest and Left Ribs. HISTORY: left rib pain COMPARISON: Portable chest 12/28/2016.. TECHNIQUE: Right center venous dialysis catheter is unchanged in position. Frontal radiograph of the chest and multiple oblique radiographs of the left ribs were obtained. FINDINGS: LEFT RIBS: Multiple rib fracture identified the left 3rd 6th and 9th ribs with prominent callus formation indicating latter stages of healing. No additional lytic changes. No blastic changes otherwise. LUNGS: Heterogeneous infiltrates are again seen scattered bilaterally are not simply changed in the interval taking differences in technique into account. PLEURA: No pneumothorax or pleural fluid. CARDIOVASCULAR: Prominent cardiac silhouette is appreciated with the vascular markings obscured by infiltrates. OTHER FINDINGS: None. IMPRESSION: Stable heterogeneous infiltrates are seen diffusely bilaterally and are unchanged compared to 12/28/2016 radiograph. Prominent cardiac silhouette is stable. Fractures at the left 3rd 6th and 9th ribs are identified at latter stage of healing as discussed above.
--- NOTE | 2016-12-29 13:49 | CP.PCM.PN ---
Subjective - Date & Time of Evaluation Date of Evaluation: 12/29/16 Time of Evaluation: 13:47 - Subjective Subjective: s/p dialysis now- UF 2000ml Still dyspneic CXR still with CHF free lamda light chains positive phos elevated- add renvela Objective - Vital Signs/Intake and Output Vital Signs (last 24 hours): Temp Pulse Resp BP Pulse Ox 97.6 F 79 14 121/41 L 83 L 12/29/16 12:15 12/29/16 13:00 12/29/16 13:00 12/29/16 12:26 12/29/16 13:00 Intake and Output: 12/29/16 12/29/16 06:59 18:59 Intake Total 560 720 Output Total 350 Balance 560 370 - Medications Medications: Current Medications Famotidine (Pepcid) 20 mg PO DAILY [facility] Last Admin: 12/29/16 09:10 Dose: Not Given Ferrous Sulfate (Feosol) 325 mg PO DAILY [facility] Last Admin: 12/29/16 09:08 Dose: Not Given Glipizide (Glucotrol) 10 mg PO DAILY [facility] Last Admin: 12/29/16 09:09 Dose: Not Given Heparin Sodium (Porcine) (Heparin) 5,000 units SC Q8 [facility] Last Admin: 12/29/16 06:34 Dose: 5,000 units Piperacillin Sod/Tazobactam Sod (Zosyn 2.25 Gm Iv Premix) 2.25 gm in 50 mls @ 100 mls/hr IVPB Q8H [facility] Last Admin: 12/29/16 06:34 Dose: 100 mls/hr Doxycycline Hyclate 100 mg/ (Sodium Chloride) 100 mls @ 100 mls/hr IVPB Q12H [facility] Last Admin: 12/29/16 09:07 Dose: Not Given Insulin Human Regular (Novolin R) 0 unit SC ACHS [facility] PRN Reason: Protocol Last Admin: 12/29/16 12:00 Dose: 1 unit Levothyroxine Sodium (Synthroid) 75 mcg PO DAILY@0630 [facility] Last Admin: 12/29/16 06:34 Dose: 75 mcg Methylprednisolone (Solu-Medrol) 40 mg IVP Q8H [facility] Last Admin: 12/29/16 09:07 Dose: Not Given Sevelamer Carbonate (Renvela) 0.8 gm PO TIDCC [facility] Last Admin: 12/29/16 12:30 Dose: 0.8 gm - Labs Labs: 12/29/16 06:18 12/29/16 06:16 PT 13.1 SECONDS (9.7-12.2) H 12/26/16 08:05 INR 1.2 12/26/16 08:05 APTT 39 SECONDS (21-34) H 12/26/16 08:05 - Constitutional Appears: In Acute Distress, Chronically Ill - Head Exam Head Exam: ATRAUMATIC, NORMAL INSPECTION - Eye Exam Eye Exam: EOMI, Normal appearance - Neck Exam Neck Exam: Normal Inspection. absent: Tenderness - Respiratory Exam Respiratory Exam: Rales, Respiratory Distress - Cardiovascular Exam Cardiovascular Exam: REGULAR RHYTHM, +S1 - Extremities Exam Extremities Exam: Normal Inspection. absent: Pedal Edema - Neurological Exam Neurological Exam: Alert, CN II-XII Intact - Skin Skin Exam: Dry, Warm Assessment and Plan (1) MARIA EUGENIA (acute kidney injury) Status: Acute (2) CHF (congestive heart failure) Status: Acute (3) Hypercalcemia Status: Acute - Assessment and Plan (Free Text) Plan: Increase UF with dialysis - increase frequency of dialysis Add renvela Await BM bx
[2016-12-29] MEDS ORDERED: Sevelamer Carb 0.8 gm/Packet PO SCH (13:50)
--- NOTE | 2016-12-29 14:00 | CP.PCM.PN ---
Subjective - Date & Time of Evaluation Date of Evaluation: 12/29/16 Time of Evaluation: 11:35 - Subjective Subjective: Patient seen and examined Seen during hemodialysis with mild to moderate respiratory distress On BiPAP at night and now on high flow oxygen Afebrile No chest pain For bone marrow biopsy today Objective - Vital Signs/Intake and Output Vital Signs (last 24 hours): Temp Pulse Resp BP Pulse Ox 97.6 F 79 20 121/41 L 83 L 12/29/16 12:15 12/29/16 13:00 12/29/16 13:48 12/29/16 12:26 12/29/16 13:00 Intake and Output: 12/29/16 12/29/16 06:59 18:59 Intake Total 560 720 Output Total 350 Balance 560 370 - Medications Medications: Current Medications Famotidine (Pepcid) 20 mg PO DAILY [facility] Last Admin: 12/29/16 09:10 Dose: Not Given Ferrous Sulfate (Feosol) 325 mg PO DAILY [facility] Last Admin: 12/29/16 09:08 Dose: Not Given Glipizide (Glucotrol) 10 mg PO DAILY [facility] Last Admin: 12/29/16 09:09 Dose: Not Given Heparin Sodium (Porcine) (Heparin) 5,000 units SC Q8 [facility] Last Admin: 12/29/16 06:34 Dose: 5,000 units Piperacillin Sod/Tazobactam Sod (Zosyn 2.25 Gm Iv Premix) 2.25 gm in 50 mls @ 100 mls/hr IVPB Q8H [facility] Last Admin: 12/29/16 06:34 Dose: 100 mls/hr Doxycycline Hyclate 100 mg/ (Sodium Chloride) 100 mls @ 100 mls/hr IVPB Q12H [facility] Last Admin: 12/29/16 09:07 Dose: Not Given Insulin Human Regular (Novolin R) 0 unit SC ACHS [facility] PRN Reason: Protocol Last Admin: 12/29/16 12:00 Dose: 1 unit Levothyroxine Sodium (Synthroid) 75 mcg PO DAILY@0630 [facility] Last Admin: 12/29/16 06:34 Dose: 75 mcg Methylprednisolone (Solu-Medrol) 40 mg IVP Q8H [facility] Last Admin: 12/29/16 09:07 Dose: Not Given Sevelamer Carbonate (Renvela) 1.6 gm PO TIDCC [facility] - Labs Labs: 12/29/16 06:18 12/29/16 06:16 PT 13.1 SECONDS (9.7-12.2) H 12/26/16 08:05 INR 1.2 12/26/16 08:05 APTT 39 SECONDS (21-34) H 12/26/16 08:05 - Head Exam Head Exam: ATRAUMATIC, NORMOCEPHALIC - ENT Exam ENT Exam: Mucous Membranes Moist - Neck Exam Neck Exam: Normal Inspection - Respiratory Exam Respiratory Exam: Decreased Breath Sounds, Rales - Cardiovascular Exam Cardiovascular Exam: REGULAR RHYTHM - GI/Abdominal Exam GI & Abdominal Exam: Soft, Normal Bowel Sounds - Extremities Exam Extremities Exam: Pedal Edema Assessment and Plan (1) COPD (chronic obstructive pulmonary disease) Assessment & Plan: continue nebulizer treatment and steroids Followup chest x-ray Continue hemodialysis For bone marrow biopsy today Status: Acute (2) Pulmonary hypertension Status: Acute (3) Anemia Status: Acute (4) CHF (congestive heart failure) Status: Acute (5) Acute kidney injury Status: Acute
[2016-12-29 15:02] LABS: GAMMA GLOBULIN 71.5 Relative %
[2016-12-30] MEDS: MethylPREDNISolone 40 mg Vial IVP SCH ×3 (02:00→18:12)
[2016-12-30] MEDS: Levothyroxine 75 MCG TAB PO SCH (05:51)
[2016-12-30] MEDS: Piperacill/Tazo 2.25gm in Dex 2.25 GM/50 ML BAG IVPB SCH ×3 (06:00→22:41)
[2016-12-30 06:55] LABS: BASO % 0.1 % (0.0-2.0); LYMPH # 0.7 K/uL (1.0-4.3); MONO # 0.5 K/uL (0.0-0.8)
[2016-12-30 07:05] LABS: HEMATOCRIT 19.9 % (34.0-47.0); LYMPH % 3.8 % (20.0-40.0); MEAN CELL VOLUME 96.4 fL (81.0-99.0); MEAN CORPUSCULAR HEMOGLOBIN 31.6 pg (27.0-31.0); MEAN CORPUSCULAR HGB CONC 32.8 g/dL (33.0-37.0); MEAN PLATELET VOLUME 8.4 fL (7.2-11.7); MONO % 2.8 % (0.0-10.0); NRBC % 0.2 % (0.0-2.0); PLATELET COUNT 227 K/uL (130-400); RED CELL DISTRIBUTION WIDTH 16.5 % (11.5-14.5)
[2016-12-30 07:08] LABS: ALB/GLOB RATIO 1.3 (1.0-2.1); BILIRUBIN,TOTAL 0.6 mg/dL (0.2-1.3); PHOSPHOROUS 7.8 mg/dL (2.5-4.5); TOTAL PROTEIN 5.9 g/dL (6.3-8.3)
--- NOTE | 2016-12-30 07:38 | CP.PCM.PN ---
Subjective - Date & Time of Evaluation Date of Evaluation: 12/29/16 Time of Evaluation: 18:20 - Subjective Subjective: Patient seen and evaluated Fuid over load inspite of HD ECHO shows normal EF and severe Pulmonary HTN CXR: Severe congestion Objective - Vital Signs/Intake and Output Vital Signs (last 24 hours): Temp Pulse Resp BP Pulse Ox 98.5 F 75 17 118/40 L 93 L 12/30/16 04:00 12/30/16 07:00 12/30/16 07:00 12/30/16 06:26 12/30/16 07:00 Intake and Output: 12/30/16 12/30/16 06:59 18:59 Intake Total 300 Output Total 0 0 Balance 300 0 - Medications Medications: Current Medications Famotidine (Pepcid) 20 mg PO DAILY [facility] Last Admin: 12/29/16 09:10 Dose: Not Given Ferrous Sulfate (Feosol) 325 mg PO DAILY [facility] Last Admin: 12/29/16 09:08 Dose: Not Given Glipizide (Glucotrol) 10 mg PO DAILY [facility] Last Admin: 12/29/16 09:09 Dose: Not Given Heparin Sodium (Porcine) (Heparin) 5,000 units SC Q8 [facility] Last Admin: 12/30/16 05:52 Dose: 5,000 units Piperacillin Sod/Tazobactam Sod (Zosyn 2.25 Gm Iv Premix) 2.25 gm in 50 mls @ 100 mls/hr IVPB Q8H [facility] Last Admin: 12/30/16 06:00 Dose: 100 mls/hr Doxycycline Hyclate 100 mg/ (Sodium Chloride) 100 mls @ 100 mls/hr IVPB Q12H [facility] Last Admin: 12/29/16 20:30 Dose: 100 mls/hr Insulin Human Regular (Novolin R) 0 unit SC ACHS [facility] PRN Reason: Protocol Last Admin: 12/29/16 22:15 Dose: Not Given Levothyroxine Sodium (Synthroid) 75 mcg PO DAILY@0630 [facility] Last Admin: 12/30/16 05:51 Dose: 75 mcg Methylprednisolone (Solu-Medrol) 40 mg IVP Q8H [facility] Last Admin: 12/30/16 02:00 Dose: 40 mg Sevelamer Carbonate (Renvela) 1,600 mg PO TIDCC [facility] - Labs Labs: 12/30/16 06:52 12/29/16 06:16 PT 13.1 SECONDS (9.7-12.2) H 12/26/16 08:05 INR 1.2 12/26/16 08:05 APTT 39 SECONDS (21-34) H 12/26/16 08:05 - Head Exam Head Exam: ATRAUMATIC, NORMAL INSPECTION - Eye Exam Eye Exam: EOMI, PERRL Pupil Exam: NORMAL ACCOMODATION - ENT Exam ENT Exam: Mucous Membranes Moist - Neck Exam Neck Exam: Full ROM, Normal Inspection - Respiratory Exam Respiratory Exam: Decreased Breath Sounds - Cardiovascular Exam Cardiovascular Exam: REGULAR RHYTHM, +S1, +S2 - GI/Abdominal Exam GI & Abdominal Exam: Soft, Normal Bowel Sounds - Neurological Exam Neurological Exam: Alert, Oriented x3 - Skin Skin Exam: Warm Assessment and Plan - Assessment and Plan (Free Text) Assessment: 1. Fluid over load and Renal failure on HD 2. Diastolic CHF 3. HTN Aggressive fluid removal DVT/GI prophylaxis Will follow
[2016-12-30] MEDS: (Novolin R) Insulin Human Regular 100 units/ml vial SC SCH ×4 (08:12→22:14)
--- NOTE | 2016-12-30 08:16 | CP.PCM.PN ---
Subjective - Date & Time of Evaluation Date of Evaluation: 12/30/16 Time of Evaluation: 08:15 - Subjective Subjective: Medical Attending Note: Patient seen, examined at bedside. Patient denies headache, denies chills, reports shortness of breathe but better than yesterday, denies chest pain, denies palpitations, denies abdominal pain, denies nausea, +constipation, reports low back pain. Patient wants to sit up right. Objective - Vital Signs/Intake and Output Vital Signs (last 24 hours): Temp Pulse Resp BP Pulse Ox 97.5 F L 75 20 118/40 L 93 L 12/30/16 07:54 12/30/16 07:00 12/30/16 07:41 12/30/16 06:26 12/30/16 07:00 Intake and Output: 12/30/16 12/30/16 06:59 18:59 Intake Total 300 Output Total 0 0 Balance 300 0 - Medications Medications: Current Medications Famotidine (Pepcid) 20 mg PO DAILY [facility] Last Admin: 12/29/16 09:10 Dose: Not Given Ferrous Sulfate (Feosol) 325 mg PO DAILY [facility] Last Admin: 12/29/16 09:08 Dose: Not Given Glipizide (Glucotrol) 10 mg PO DAILY [facility] Last Admin: 12/29/16 09:09 Dose: Not Given Heparin Sodium (Porcine) (Heparin) 5,000 units SC Q8 [facility] Last Admin: 12/30/16 05:52 Dose: 5,000 units Piperacillin Sod/Tazobactam Sod (Zosyn 2.25 Gm Iv Premix) 2.25 gm in 50 mls @ 100 mls/hr IVPB Q8H [facility] Last Admin: 12/30/16 06:00 Dose: 100 mls/hr Doxycycline Hyclate 100 mg/ (Sodium Chloride) 100 mls @ 100 mls/hr IVPB Q12H [facility] Last Admin: 12/29/16 20:30 Dose: 100 mls/hr Insulin Human Regular (Novolin R) 0 unit SC ACHS [facility] PRN Reason: Protocol Last Admin: 12/29/16 22:15 Dose: Not Given Levothyroxine Sodium (Synthroid) 75 mcg PO DAILY@0630 [facility] Last Admin: 12/30/16 05:51 Dose: 75 mcg Methylprednisolone (Solu-Medrol) 40 mg IVP Q8H [facility] Last Admin: 12/30/16 02:00 Dose: 40 mg Sevelamer Carbonate (Renvela) 1,600 mg PO TIDCC [facility] - Labs Labs: 12/30/16 06:52 12/30/16 06:52 PT 13.1 SECONDS (9.7-12.2) H 12/26/16 08:05 INR 1.2 12/26/16 08:05 APTT 39 SECONDS (21-34) H 12/26/16 08:05 - Constitutional Appears: Non-toxic, No Acute Distress - Head Exam Head Exam: NORMAL INSPECTION - Eye Exam Eye Exam: EOMI - ENT Exam ENT Exam: Mucous Membranes Moist - Respiratory Exam Respiratory Exam: Decreased Breath Sounds. absent: Respiratory Distress, Stridor - Cardiovascular Exam Cardiovascular Exam: REGULAR RHYTHM, +S1, +S2 - GI/Abdominal Exam GI & Abdominal Exam: Soft, Normal Bowel Sounds. absent: Distended, Firm, Guarding, Rigid, Tenderness, Rebound Additional comments: obese habitus - Extremities Exam Extremities Exam: absent: Pedal Edema, Tenderness - Neurological Exam Neurological Exam: Alert, Awake, Oriented x3 - Psychiatric Exam Psychiatric exam: Normal Affect, Normal Mood - Skin Skin Exam: Dry, Normal Color, Warm Assessment and Plan - Assessment and Plan (Free Text) Assessment: (1) Fluid Overload Assessment and Plan: * ProBNP today: 50703 * Contributing factors: acute on chronic kidney disease and hx of diastolic congestive heart failure * Vascular Surgery: Dr. Ontiveros-->notified by emergency room; for emergent dialysis access * Nephrology: Dr Bill on board-->acute on chronic kidney insufficiency, hypercalcemia; emergent dialysis * Chest Xray (12/25/16): prominent diffuse increased interstital lung markings throughout both lungs suggestive for edema and/or infiltrate * Chest Xray (12/27/16): persistent prominent diffuse increased consolidative changes throughtout both lungs with coarse reticular interstital airspce opacities. More focal confluent airspace consolidative changes in the right right midlung zone and left lung base with small left plueral effusion. Cardiomegaly * Echocardiogram (12/27/16) moderate left ventricular diastolic dysfunction. left atrium is moderately dilated. right atrium is mildly dilated, mitral annular calcification is moderate. mitral velve is calcified and displays decreased opening. Mild mitral valve stenosis. severe pulmonary hypertension., EF: 60% * Monitor intake output * Daily weights * 12/27/16: 2nd dialysis session today--> 2 liters removed * 12/28/16: Spoke with Dr. Bill-->dialysis for tomorrow; pending chest xray read * 12/29/16: stable heterogenous infiltrates are seen diffusely bilaterally and are unchanged compared to 12/28/16 prominent cardiac silhouteete is stable. Fractures at the left 3rd, 6th, and 9th ribs identified at latter stage of healing * 12/30/16: pending (2) Acute kidney injury superimposed on chronic kidney disease Assessment and Plan: * Nephrology Dr. Bill consulted-->help appreciated * Hepatitis panel: Negative * HIV: negative * Mycoplasma Igm: negative * Legionella; Negative * Vascular Surgery: Dr. 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 * Recommended for SPEP, IPEP--->pending * free light chain lambda: 239050.7 * free light chain kappa: 17.5 * 24 hr urine UPEP-->resulting--> 2108 (high) * urine IPE * beta2 microglobulin * LDH: 522 * Prior SPEP: (12/02/16): M Adarsh migrating in the gamma globulin region; 12/25 : M spike * immuonfixation: pending * BUN/Cr elevated today: 90/7.7 * 12/25 Urinanalysis: +leuk esterase, 2+ protein, + Wbc and + RBC * urine culture: no growth (<1000 CFU/ml) * Ct Abdomen/Pelvis (12/25/16): No evidence of nephrolithiasis or hydronephrosis , 1,5 cm exophyitc high attentuation lesion at the mid to lower pole of right kidney. possibility of renal cell carcnioma should be excluded. 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 Airspace consolidation at left lobe associated with small pleural fussion suspicious for pneumonia * Patient to have dialysis today thru Sunday Status: Acute (3) Possible Multiple Myeloma Assessment and Plan: * Criteria: anemia, renal insufficiency, hypercalcemia * Nephrology Dr. Bill consulted-->help appreciated * Vascular Surgery: Dr. Ontiveros-->help appreciated * Surgery consulted and will place permacath with plan for HD today * Heme-Oncology: Dr Martinez-->help appreciated * Possible patient has light chain multiple myeloma * free light chain lambda: 116870.7 * free light chain kappa: 17.5 * 24 hr urine UPEP--> 2108 (high) * urine IPE--->--->pending * beta2 microglobulin--->--->pending * LDH: 522 * Prior SPEP: (12/02/16): M Adarsh migrating in the gamma globulin region; 12/25 : M spike * 12/27: discussed with Dr. Martinez, patient's for bone marrow biopsy for Sunday and possible start chemotherapy. * Echocardiogram (12/27/16) moderate left ventricular diastolic dysfunction. left atrium is moderately dilated. right atrium is mildly dilated, mitral annular calcification is moderate. mitral valve is calcified and displays decreased opening. Mild mitral valve stenosis. severe pulmonary hypertension., EF: 60% * Monitor intake output * BUN/Cr elevated today: 90/7.7 * 12/25 Urinanalysis: +leuk esterase, 2+ protein, + Wbc and + RBC * urine culture: no growth (<1000 CFU/ml) * Ct Abdomen/Pelvis (12/25/16): No evidence of nephrolithiasis or hydronephrosis , 1,5 cm exophyitc high attentuation lesion at the mid to lower pole of right kidney. possibility of renal cell carcnioma should be excluded. 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 Airspace consolidation at left lobe associated with small pleural fussion suspicious for pneumonia * Chest xray w rib (12/29/16): stable heterogenous infiltrates are seen diffusely bilaterally and are unchanged compared to 12/28/16 prominent cardiac silhouteete is stable. Fractures at the left 3rd, 6th, and 9th ribs identified at latter stage of healing * 12/30: Heme-onc unable to do bone marrow biopsy because of patient's shortness of breathe; reports does not need bone marrow biopsy at this time; recommend for port a cath Status: Acute (4) Hypercalcemia Assessment and Plan: * Likely secondary to Multiple Myeloma * Nephrology (Dr. Bill) on board-->help appreciated * Heme-onc (Dr. Martinez) on board--->help appreciated * Bone marrow biopsy today at 130PM * PTH related Protein: pending * PTH intact: 14 * Vitamin D: 66.6 * ОЛЕГ: 28 * Ionized Calcium: 6.7 * Possible patient has light chain multiple myeloma * Recommended for SPEP, IPEP--->pending * free light chain lambda: 036136.7 * free light chain kappa: 17.5 * 24 hr urine UPEP--> 2108 (high) * urine IPE--->--->pending * beta2 microglobulin--->--->pending * LDH: 522 * Prior SPEP: (12/02/16): M Adarsh migrating in the gamma globulin region; 12/25 : M spike Status: Acute (5) Possible CHF exacerbation Assessment and Plan: * History of diastolic congestive heart failure * Cardiology (Dr. Little) on consult; covering for Dr. Lynch's patients * ProBNP today: 36349 * Echocardiogram (12/27/16) moderate left ventricular diastolic dysfunction. left atrium is moderately dilated. right atrium is mildly dilated, mitral annular calcification is moderate. mitral valve is calcified and displays decreased opening. Mild mitral valve stenosis. severe pulmonary hypertension., EF: 60% * monitor intake and output * Patient has acute renal failure unable to start ARB/ОЛЕГ * Patient's blood pressure is normotensive w/o beta-vania * Start Crestor 5mg POqHS * Used to be on Cardizem prior hospitalization but off * Daily Weights Status: Acute (6) Anemia Assessment and Plan: * Heme-onc (Dr. Martinez) on board-->help appreciated * Discussed with PMD: Dr. Winkler-->patient has had workup including GI workup in 2017 in regards to anemia * Thought to be chronic secondary to kidney disease * Continue home meds Ferrous sulfate 325 mg daily * s/p 1 unit of PRBC on 12/25 7.2 * 12/25 stool occult blood: negative * Prior hospitalizations included in patient's chart; awaiting copy of report of GI workup Status: Chronic (7) Atrial fibrillation Assessment and Plan: * Cardiology (Dr. Little) covering for Dr. Lynch's patients * Continue home meds: Amiodarone 200 mg daily, Cardizem 240 mg daily * Patient is not on anticoagulation secondary to anemia * CHADS: 4 (DM, Age, HTN, CHF) * HASBLED:2 (Age and Renal Disease) Status: Acute (8) HTN (hypertension) Assessment and Plan: * Monitor vital signs * Patient is on dialysis secondary to MARIA EUGENIA secondary to Multiple Myeloma Status: Chronic (9) Leukocytosis Assessment and Plan: * In the ED, order for dose of Zosyn and Vancomycin on 12/25 * Strep, legionella: negative and mycoplasma IgM: negative * Patient recently at the hospital within 90 days-->consideration for possible hospital acquired pneumonia * Patient does not meet sepsis critera (04/19: leukocytosis) * Start Zosyn 2.25 gr IV Q8H (active since 12/25/16) and Doxcycline 100mg IV Q 12hours (active since 12/25/16) * Blood Culture (12/25/16): no growth after 4 days X2 * Urine culture (12/25/16): <1000 * Procalcitonin low * f/u blood cultures (12/29) Status: Acute (10) History of pulmonary fibrosis Assessment and Plan: * Consult: Dr Kessler (pulmonary fibrosis) on board * continue home meds: Pulmicort Flexhaler 90 mcg INH RQ12hr * Start on Solumedrol 40mg IV Q 8 hours per pulmonary (active since 12/27/16) Status: Chronic (11) History of Gastritis Assessment and Plan: * Pepcid 20mg PO daily Status: Chronic (12) Diabetes 1.5, managed as type 2 Assessment and Plan: * Continue home meds: Glipizide 10 mg daily * daily Accuchecks QAC and HS * Lvucneqwdrw0t: 6.1 Status: Chronic (13) Hypothyroidism Status: Chronic * TSH: 4.84 * Levothyroxine 75mcg/fay Status: Chronic (14) Hepatitis Assessment and Plan: * RUQ pain will f/u Amylase, lipase which are normal * LFTs are normal Status: Chronic (15) History of back pain Assessment and Plan: * held Magnesium oxide 400 mg BID; Tramadol-Acetaminophen 32.5-325 mg 2 tablets Q6hr * likely secondary to lytic lesion likely secondary to Multiple Myeloma Status: Acute (16) Lower extremity pain Assessment and Plan: * Held Magnesium oxide 400 mg BID; Tramadol-Acetaminophen 32.5-325 mg 2 tablets Q6hr Status: Acute (17) Prophylactic measure Assessment and Plan: * DVT: SCDs b/l; heparin 5000 units subq12 * GI: Pepcid 20mg PO daily * Monitor intake and output * Daily Weight * PT/OT eval Status: Acute
--- NOTE | 2016-12-30 09:24 | RAD ---
HISTORY: fluid overload COMPARISON: No prior. FINDINGS: LUNGS: Interval mild improvement in the previously seen diffuse patchy reticulonodular opacities in the lungs since the previous exam. PLEURA: Blunting of both costophrenic angles. CARDIOVASCULAR: The cardiac silhouette is prominent in size. Right-sided central venous catheter likely hemodialysis catheter is again seen in place. OSSEOUS STRUCTURES: Previously described left ribs fractures are again identified. VISUALIZED UPPER ABDOMEN: Normal. OTHER FINDINGS: None. IMPRESSION: Interval mild improvement in the lungs since the previous exam. Otherwise no significant interval change.
[2016-12-30 10:45] LABS: NEUTROPHIL 94 % (50-75); TOTAL CELLS COUNTED 100
--- NOTE | 2016-12-30 10:47 | CP.PCM.PN ---
Subjective - Date & Time of Evaluation Date of Evaluation: 12/30/16 Time of Evaluation: 10:44 - Subjective Subjective: in chair SOB on 100 % high flow oxygen had HD yesterday Hb 6.5 today ROS- as per HPI, other than that 10 point ros negative Objective - Vital Signs/Intake and Output Vital Signs (last 24 hours): Temp Pulse Resp BP Pulse Ox 97.5 F L 75 20 118/40 L 93 L 12/30/16 07:54 12/30/16 07:00 12/30/16 07:41 12/30/16 06:26 12/30/16 07:00 Intake and Output: 12/30/16 12/30/16 06:59 18:59 Intake Total 300 100 Output Total 0 0 Balance 300 100 - Medications Medications: Current Medications Famotidine (Pepcid) 20 mg PO DAILY [facility] Last Admin: 12/29/16 09:10 Dose: Not Given Ferrous Sulfate (Feosol) 325 mg PO DAILY [facility] Last Admin: 12/29/16 09:08 Dose: Not Given Glipizide (Glucotrol) 10 mg PO DAILY [facility] Last Admin: 12/29/16 09:09 Dose: Not Given Heparin Sodium (Porcine) (Heparin) 5,000 units SC Q12 [facility] Piperacillin Sod/Tazobactam Sod (Zosyn 2.25 Gm Iv Premix) 2.25 gm in 50 mls @ 100 mls/hr IVPB Q8H [facility] Last Admin: 12/30/16 06:00 Dose: 100 mls/hr Doxycycline Hyclate 100 mg/ (Sodium Chloride) 100 mls @ 100 mls/hr IVPB Q12H [facility] Last Admin: 12/30/16 08:38 Dose: 100 mls/hr Insulin Human Regular (Novolin R) 0 unit SC ACHS [facility] PRN Reason: Protocol Last Admin: 12/30/16 08:12 Dose: 3 unit Levothyroxine Sodium (Synthroid) 75 mcg PO DAILY@0630 [facility] Last Admin: 12/30/16 05:51 Dose: 75 mcg Methylprednisolone (Solu-Medrol) 40 mg IVP Q8H [facility] Last Admin: 12/30/16 02:00 Dose: 40 mg Rosuvastatin Calcium (Crestor) 5 mg PO HS [facility] Sevelamer Carbonate (Renvela) 1,600 mg PO TIDCC [facility] Last Admin: 12/30/16 08:14 Dose: 1,600 mg - Labs Labs: 12/30/16 06:52 12/30/16 06:52 PT 13.1 SECONDS (9.7-12.2) H 12/26/16 08:05 INR 1.2 12/26/16 08:05 APTT 39 SECONDS (21-34) H 12/26/16 08:05 - Constitutional Appears: In Acute Distress - Head Exam Head Exam: ATRAUMATIC - Eye Exam Eye Exam: EOMI, Normal appearance - ENT Exam ENT Exam: Mucous Membranes Moist - Neck Exam Neck Exam: Full ROM. absent: Lymphadenopathy - Respiratory Exam Respiratory Exam: Clear to Ausculation Bilateral. absent: Rhonchi, Wheezes - Cardiovascular Exam Cardiovascular Exam: REGULAR RHYTHM, +S1, +S2 - GI/Abdominal Exam GI & Abdominal Exam: Soft, Normal Bowel Sounds. absent: Tenderness - Neurological Exam Neurological Exam: Alert, Awake, Oriented x3 - Psychiatric Exam Psychiatric exam: Normal Affect, Normal Mood - Skin Skin Exam: Normal Color, Warm Assessment and Plan (1) Anemia Status: Acute (2) CHF (congestive heart failure) Status: Acute (3) COPD (chronic obstructive pulmonary disease) Status: Acute (4) Hypercalcemia Status: Acute (5) Acute kidney injury superimposed on chronic kidney disease Status: Acute (6) HTN (hypertension) Status: Chronic - Assessment and Plan (Free Text) Plan: HD today an dtomorrow transfuse PRBC await bone marrow bipopsy
--- NOTE | 2016-12-30 14:47 | CP.CCUPN ---
CCU Subjective - Physician Review Events Since Last Encounter (Free Text): 12/30/16 14:45 mildly SOB on high flow oxygen, tired. CCU Objective - Vital Signs / Intake & Output Vital Signs (Last 4 hours): Vital Signs Temp Pulse Pulse Resp BP BP Pulse Ox 12/30/16 14:20 97 H 23 120/55 L 12/30/16 14:00 84 22 110/40 L 12/30/16 13:30 74 21 124/53 L 12/30/16 13:15 22 12/30/16 13:00 72 22 126/65 12/30/16 12:30 70 23 132/66 12/30/16 12:00 71 24 159/56 H 12/30/16 11:45 70 24 125/64 12/30/16 11:44 98.1 F 12/30/16 11:30 70 23 138/61 12/30/16 11:15 71 24 129/49 L 12/30/16 11:00 98.3 F 71 23 105/56 L 100 12/30/16 10:55 98.3 F 70 24 115/60 Intake and Output (Last 8hrs): Intake & Output 12/29/16 12/30/16 12/30/16 22:59 06:59 14:59 Intake Total 710 50 100 Output Total 0 0 0 Balance 710 50 100 Weight 198 lb 3.129 oz Intake: Intake, IV Amount 250 Right Wrist 250 Oral 460 50 100 Output: Urine 0 0 0 Urine, Voided 0 0 0 Stool 0 0 0 Other: # Voids Urine, Voided 1 - Physical Exam Head: Positive for: Atraumatic, Normocephalic Pupils: Positive for: PERRL Extroacular Muscles: Positive for: EOMI Mouth: Positive for: Moist Mucous Membranes Respiratory/Chest: Positive for: Rhonchi Cardiovascular: Positive for: Regular Rate and Rhythm, Normal S1, S2 Abdomen: Positive for: Normal Bowel Sounds. Negative for: Tenderness, Distention Upper Extremity: Negative for: Edema Lower Extremity: Negative for: Edema Neurological: Positive for: CN II-XII Intact, Speech Normal Psychiatric: Positive for: Alert, Oriented x 3, Normal Insight - Medications Active Medications: Active Medications Generic Name Dose Route Start Last Admin Trade Name Freq PRN Reason Stop Dose Admin Famotidine 20 mg 12/27/16 10:00 12/30/16 13:51 Pepcid PO 20 mg DAILY MARIBETH Administration Ferrous Sulfate 325 mg 12/26/16 10:00 12/30/16 13:51 Feosol PO 325 mg DAILY MARIBETH Administration Glipizide 10 mg 12/27/16 10:00 12/30/16 13:52 Glucotrol PO 10 mg DAILY MARIBETH Administration Heparin Sodium (Porcine) 5,000 units 12/30/16 10:00 12/30/16 13:51 Heparin SC 5,000 units Q12 MARIBETH Administration Piperacillin Sod/Tazobactam Sod 2.25 gm in 50 mls @ 100 mls/hr 12/25/16 23:00 12/30/16 14:16 Zosyn 2.25 Gm Iv Premix IVPB 100 mls/hr Q8H MARIBETH Administration Doxycycline Hyclate 100 mg/ 100 mls @ 100 mls/hr 12/25/16 21:00 12/30/16 08: 38 Sodium Chloride IVPB 100 mls/hr Q12H MARIBETH Administration Insulin Human Regular 0 unit 12/26/16 16:30 12/30/16 13:50 Novolin R SC 2 unit ACHS MARIBETH Administration Protocol Levothyroxine Sodium 75 mcg 12/26/16 06:30 12/30/16 05:51 Synthroid PO 75 mcg DAILY@0630 MARIBETH Administration Methylprednisolone 40 mg 12/27/16 17:45 12/30/16 13:52 Solu-Medrol IVP 40 mg Q8H MARIBETH Administration Rosuvastatin Calcium 5 mg 12/30/16 22:00 Crestor PO HS MARIBETH Sevelamer Carbonate 1,600 mg 12/30/16 08:00 12/30/16 13:51 Renvela PO 1,600 mg TIDCC MARIBETH Administration - Patient Studies Lab Studies: Microbiology Studies 12/25/16 15:45 Blood Culture - Preliminary Blood NO GROWTH AFTER 4 DAYS 12/25/16 16:10 Blood Culture - Preliminary Blood NO GROWTH AFTER 4 DAYS Lab Studies 12/30/16 12/30/16 12/30/16 Range/Units 11:38 08:01 06:52 WBC (4.8-10.8) K/uL RBC (3.80-5.20) Mil/uL Hgb (11.0-16.0) g/dL Hct (34.0-47.0) % MCV (81.0-99.0) fL MCH (27.0-31.0) pg MCHC (33.0-37.0) g/dL RDW (11.5-14.5) % Plt Count (130-400) K/uL MPV (7.2-11.7) fL Neut % (Auto) (50.0-75.0) % Lymph % (Auto) (20.0-40.0) % [place] % (Auto) (0.0-10.0) % Eos % (Auto) (0.0-4.0) % Baso % (Auto) (0.0-2.0) % Neut # (1.8-7.0) K/uL Lymph # (1.0-4.3) K/uL [place] # (0.0-0.8) K/uL Eos # (0.0-0.7) K/uL Baso # (0.0-0.2) K/uL Neutrophils % (Manual) (50-75) % Band Neutrophils % (0-2) % Lymphocytes % (Manual) (20-40) % Monocytes % (Manual) (0-10) % Platelet Estimate (NORMAL) Polychromasia Hypochromasia (manual) Poikilocytosis (manual Basophilic Stippling Anisocytosis (manual) Macrocytosis (manual) Tear Drop Cells Ovalocytes Sodium 135 (132-148) mmol/L Potassium 5.0 (3.6-5.2) mmol/L Chloride 91 L (98-107) mmol/L Carbon Dioxide 25 (22-30) mmol/L Anion Gap 24 H (10-20) BUN 79 H (7-17) mg/dL Creatinine 4.0 H (0.7-1.2) MG/DL Est GFR ( Amer) 13 Est GFR (Non-Af Amer) 11 POC Glucose (mg/dL) 201 H 285 H (65-110) mg/dL Random Glucose 232 H (65-105) mg/dL Calcium 9.0 (8.6-10.4) mg/dl Phosphorus 7.8 H (2.5-4.5) mg/dL Magnesium 2.0 (1.6-2.3) mg/dL Total Bilirubin 0.6 (0.2-1.3) mg/dL AST 16 (14-36) U/L ALT 27 (9-52) U/L Alkaline Phosphatase 54 (38-126) U/L Total Protein 5.9 L (6.3-8.3) g/dL Albumin 3.3 L (3.5-5.0) g/dL Globulin 2.6 (2.2-3.9) gm/dL Albumin/Globulin Ratio 1.3 Wbucv-4-Zprugghjv Relative % Ffede-7-Sjucpvnes Relative % Beta Globulins Relative % Gamma Globulins Relative % PTH Related Protein (14-27) pg/mL Urine Albumin (PEP) Relative % Ur Protein Fractions 12/30/16 12/29/16 12/29/16 Range/Units 06:52 21:17 16:18 WBC 19.0 H (4.8-10.8) K/uL RBC 2.06 L (3.80-5.20) Mil/uL Hgb 6.5 L* (11.0-16.0) g/dL Hct 19.9 L (34.0-47.0) % MCV 96.4 (81.0-99.0) fL MCH 31.6 H (27.0-31.0) pg MCHC 32.8 L (33.0-37.0) g/dL RDW 16.5 H (11.5-14.5) % Plt Count 227 (130-400) K/uL MPV 8.4 (7.2-11.7) fL Neut % (Auto) 93.3 H (50.0-75.0) % Lymph % (Auto) 3.8 L (20.0-40.0) % [place] % (Auto) 2.8 (0.0-10.0) % Eos % (Auto) 0.0 (0.0-4.0) % Baso % (Auto) 0.1 (0.0-2.0) % Neut # 17.8 H (1.8-7.0) K/uL Lymph # 0.7 L (1.0-4.3) K/uL [place] # 0.5 (0.0-0.8) K/uL Eos # 0.0 (0.0-0.7) K/uL Baso # 0.0 (0.0-0.2) K/uL Neutrophils % (Manual) 94 H (50-75) % Band Neutrophils % 2 (0-2) % Lymphocytes % (Manual) 3 L (20-40) % Monocytes % (Manual) 1 (0-10) % Platelet Estimate Normal (NORMAL) Polychromasia Slight Hypochromasia (manual) Slight Poikilocytosis (manual Slight Basophilic Stippling Slight Anisocytosis (manual) Slight Macrocytosis (manual) Slight Tear Drop Cells Slight Ovalocytes Slight Sodium (132-148) mmol/L Potassium (3.6-5.2) mmol/L Chloride (98-107) mmol/L Carbon Dioxide (22-30) mmol/L Anion Gap (10-20) BUN (7-17) mg/dL Creatinine (0.7-1.2) MG/DL Est GFR ( Amer) Est GFR (Non-Af Amer) POC Glucose (mg/dL) 273 H 211 H (65-110) mg/dL Random Glucose (65-105) mg/dL Calcium (8.6-10.4) mg/dl Phosphorus (2.5-4.5) mg/dL Magnesium (1.6-2.3) mg/dL Total Bilirubin (0.2-1.3) mg/dL AST (14-36) U/L ALT (9-52) U/L Alkaline Phosphatase (38-126) U/L Total Protein (6.3-8.3) g/dL Albumin (3.5-5.0) g/dL Globulin (2.2-3.9) gm/dL Albumin/Globulin Ratio Bqloi-3-Awgkzlczs Relative % Jsddr-3-Smcoyvuoo Relative % Beta Globulins Relative % Gamma Globulins Relative % PTH Related Protein (14-27) pg/mL Urine Albumin (PEP) Relative % Ur Protein Fractions 12/27/16 12/26/16 Range/Units 07:25 13:56 WBC (4.8-10.8) K/uL RBC (3.80-5.20) Mil/uL Hgb (11.0-16.0) g/dL Hct (34.0-47.0) % MCV (81.0-99.0) fL MCH (27.0-31.0) pg MCHC (33.0-37.0) g/dL RDW (11.5-14.5) % Plt Count (130-400) K/uL MPV (7.2-11.7) fL Neut % (Auto) (50.0-75.0) % Lymph % (Auto) (20.0-40.0) % [place] % (Auto) (0.0-10.0) % Eos % (Auto) (0.0-4.0) % Baso % (Auto) (0.0-2.0) % Neut # (1.8-7.0) K/uL Lymph # (1.0-4.3) K/uL [place] # (0.0-0.8) K/uL Eos # (0.0-0.7) K/uL Baso # (0.0-0.2) K/uL Neutrophils % (Manual) (50-75) % Band Neutrophils % (0-2) % Lymphocytes % (Manual) (20-40) % Monocytes % (Manual) (0-10) % Platelet Estimate (NORMAL) Polychromasia Hypochromasia (manual) Poikilocytosis (manual Basophilic Stippling Anisocytosis (manual) Macrocytosis (manual) Tear Drop Cells Ovalocytes Sodium (132-148) mmol/L Potassium (3.6-5.2) mmol/L Chloride (98-107) mmol/L Carbon Dioxide (22-30) mmol/L Anion Gap (10-20) BUN (7-17) mg/dL Creatinine (0.7-1.2) MG/DL Est GFR ( Amer) Est GFR (Non-Af Amer) POC Glucose (mg/dL) (65-110) mg/dL Random Glucose (65-105) mg/dL Calcium (8.6-10.4) mg/dl Phosphorus (2.5-4.5) mg/dL Magnesium (1.6-2.3) mg/dL Total Bilirubin (0.2-1.3) mg/dL AST (14-36) U/L ALT (9-52) U/L Alkaline Phosphatase (38-126) U/L Total Protein (6.3-8.3) g/dL Albumin (3.5-5.0) g/dL Globulin (2.2-3.9) gm/dL Albumin/Globulin Ratio 0.15 Euxgn-7-Qepxnaqvu 3.8 Relative % Lnqkx-7-Glubmtkrc 5.7 Relative % Beta Globulins 6.1 Relative % Gamma Globulins 71.5 Relative % PTH Related Protein 47 H (14-27) pg/mL Urine Albumin (PEP) 13.0 Relative % Ur Protein Fractions See note Laboratory Results - last 24 hr 12/26/16 12/27/16 12/29/16 13:56 07:25 16:18 WBC RBC Hgb Hct MCV MCH MCHC RDW Plt Count MPV Neut % (Auto) Lymph % (Auto) [place] % (Auto) Eos % (Auto) Baso % (Auto) Neut # Lymph # [place] # Eos # Baso # Neutrophils % (Manual) Band Neutrophils % Lymphocytes % (Manual) Monocytes % (Manual) Platelet Estimate Polychromasia Hypochromasia (manual) Poikilocytosis (manual Basophilic Stippling Anisocytosis (manual) Macrocytosis (manual) Tear Drop Cells Ovalocytes Sodium Potassium Chloride Carbon Dioxide Anion Gap BUN Creatinine Est GFR ( Amer) Est GFR (Non-Af Amer) POC Glucose (mg/dL) 211 H Random Glucose Calcium Phosphorus Magnesium Total Bilirubin AST ALT Alkaline Phosphatase Total Protein Albumin Globulin Albumin/Globulin Ratio 0.15 Jkmma-7-Duupcdcig 3.8 Jjfup-1-Klchitpob 5.7 Beta Globulins 6.1 Gamma Globulins 71.5 PTH Related Protein 47 H Urine Albumin (PEP) 13.0 Ur Protein Fractions See note 12/29/16 12/30/16 12/30/16 21:17 06:52 06:52 WBC 19.0 H RBC 2.06 L Hgb 6.5 L* Hct 19.9 L MCV 96.4 MCH 31.6 H MCHC 32.8 L RDW 16.5 H Plt Count 227 MPV 8.4 Neut % (Auto) 93.3 H Lymph % (Auto) 3.8 L [place] % (Auto) 2.8 Eos % (Auto) 0.0 Baso % (Auto) 0.1 Neut # 17.8 H Lymph # 0.7 L [place] # 0.5 Eos # 0.0 Baso # 0.0 Neutrophils % (Manual) 94 H Band Neutrophils % 2 Lymphocytes % (Manual) 3 L Monocytes % (Manual) 1 Platelet Estimate Normal Polychromasia Slight Hypochromasia (manual) Slight Poikilocytosis (manual Slight Basophilic Stippling Slight Anisocytosis (manual) Slight Macrocytosis (manual) Slight Tear Drop Cells Slight Ovalocytes Slight Sodium 135 Potassium 5.0 Chloride 91 L Carbon Dioxide 25 Anion Gap 24 H BUN 79 H Creatinine 4.0 H Est GFR ( Amer) 13 Est GFR (Non-Af Amer) 11 POC Glucose (mg/dL) 273 H Random Glucose 232 H Calcium 9.0 Phosphorus 7.8 H Magnesium 2.0 Total Bilirubin 0.6 AST 16 ALT 27 Alkaline Phosphatase 54 Total Protein 5.9 L Albumin 3.3 L Globulin 2.6 Albumin/Globulin Ratio 1.3 Kcxlv-0-Vybflosyv Bgwpo-6-Yomrrcfdb Beta Globulins Gamma Globulins PTH Related Protein Urine Albumin (PEP) Ur Protein Fractions 12/30/16 12/30/16 08:01 11:38 WBC RBC Hgb Hct MCV MCH MCHC RDW Plt Count MPV Neut % (Auto) Lymph % (Auto) [place] % (Auto) Eos % (Auto) Baso % (Auto) Neut # Lymph # [place] # Eos # Baso # Neutrophils % (Manual) Band Neutrophils % Lymphocytes % (Manual) Monocytes % (Manual) Platelet Estimate Polychromasia Hypochromasia (manual) Poikilocytosis (manual Basophilic Stippling Anisocytosis (manual) Macrocytosis (manual) Tear Drop Cells Ovalocytes Sodium Potassium Chloride Carbon Dioxide Anion Gap BUN Creatinine Est GFR ( Amer) Est GFR (Non-Af Amer) POC Glucose (mg/dL) 285 H 201 H Random Glucose Calcium Phosphorus Magnesium Total Bilirubin AST ALT Alkaline Phosphatase Total Protein Albumin Globulin Albumin/Globulin Ratio Dkylh-2-Irhmjxhui Zlpms-9-Sjfpodrod Beta Globulins Gamma Globulins PTH Related Protein Urine Albumin (PEP) Ur Protein Fractions Fingerstick Blood Sugar Results: 201 Review of Systems - Review of Systems All systems: reviewed and no additional remarkable complaints except - Respiratory Respiratory: Dyspnea on Exertion Critical Care Progress Note - Nutrition Nutrition: Nutrition Category Date Time Status Renal Diet [DIET] Diets 12/25/16 Dinner Active Assessment/Plan (1) Acute respiratory failure Assessment and plan: 81 year old female with PMHx of COPD, severe pulm HTN, CHF, A-Fib, HTN, Anemia, DM, hypothyroidism, Gastritis, Hepatitis C (treated) presenting with SOB, shoulder pain and Acute Renal Failure. Neuro: Alert and oriented 3 Pulm: Acute hypoxic respiratory failure secondary to pulmonary edema. COPD continue Methylprednisolone IV every 8h. CV: Acute on chronic decompensated diastolic heart failure, fluid removal via dialysis. Hem: Worsening anemia, multifactorial with critical illness, multiple myeloma. Will monitor. Multiple myeloma, intended treatment with Velcade and Cytoxan and Decadron. Bone marrow biopsy planned once patient is stable. Hem/Onc following. Renal: acute renal failure requiring Daily dialysis for fluid removal. Endo: DM type II, regular insulin sliding scale for coverage, Glucotrol. Hypothyroidism, continue levothyroxine. GI: Diabetic diet ID: Possible pneumonia, continue doxycycline, and Zosyn. DVT proph - heparin subcutaneous GI proph - Pepcid valencia for strict I/O's during acute illness Code status - full code Critical Care Time spent Multi-disciplinary rounds were performed with house staff, nursing, speech therapy, respiratory therapy, pharmacy and nutrition with integrated input from the primary team/attending and other consulting services. The documented time is cumulative and includes review of patient data/exams/labs/chart review and examination of the patient on rounds and throughout the day; time is exclusive of any procedures or teaching time. Current Visit: Yes Status: Acute
--- NOTE | 2016-12-30 18:40 | CP.PCM.PN ---
Subjective - Date & Time of Evaluation Date of Evaluation: 12/30/16 Time of Evaluation: 16:00 - Subjective Subjective: patient seen and examined Sitting comfortably in no distress Breathing better Afebrile Status post hemodialysis yesterday Bone marrow biopsy cancelled Objective - Vital Signs/Intake and Output Vital Signs (last 24 hours): Temp Pulse Resp BP Pulse Ox 97.8 F 78 14 124/50 L 97 12/30/16 16:00 12/30/16 18:05 12/30/16 18:05 12/30/16 18:05 12/30/16 18:05 Intake and Output: 12/30/16 12/30/16 06:59 18:59 Intake Total 300 350 Output Total 0 300 Balance 300 50 - Medications Medications: Current Medications Famotidine (Pepcid) 20 mg PO DAILY [facility] Last Admin: 12/30/16 13:51 Dose: 20 mg Ferrous Sulfate (Feosol) 325 mg PO DAILY [facility] Last Admin: 12/30/16 13:51 Dose: 325 mg Glipizide (Glucotrol) 10 mg PO DAILY [facility] Last Admin: 12/30/16 13:52 Dose: 10 mg Heparin Sodium (Porcine) (Heparin) 5,000 units SC Q12 [facility] Last Admin: 12/30/16 13:51 Dose: 5,000 units Piperacillin Sod/Tazobactam Sod (Zosyn 2.25 Gm Iv Premix) 2.25 gm in 50 mls @ 100 mls/hr IVPB Q8H [facility] Last Admin: 12/30/16 14:16 Dose: 100 mls/hr Doxycycline Hyclate 100 mg/ (Sodium Chloride) 100 mls @ 100 mls/hr IVPB Q12H [facility] Last Admin: 12/30/16 08:38 Dose: 100 mls/hr Insulin Human Regular (Novolin R) 0 unit SC ACHS [facility] PRN Reason: Protocol Last Admin: 12/30/16 16:54 Dose: 2 unit Levothyroxine Sodium (Synthroid) 75 mcg PO DAILY@0630 [facility] Last Admin: 12/30/16 05:51 Dose: 75 mcg Lidocaine (Lidoderm) 1 ea TD DAILY [facility] Methylprednisolone (Solu-Medrol) 40 mg IVP Q8H [facility] Last Admin: 12/30/16 18:12 Dose: 40 mg Rosuvastatin Calcium (Crestor) 5 mg PO HS MARIBETH Sevelamer Carbonate (Renvela) 1,600 mg PO TIDCC MARIBETH Last Admin: 12/30/16 18:12 Dose: 1,600 mg - Labs Labs: 12/30/16 06:52 12/30/16 06:52 PT 13.1 SECONDS (9.7-12.2) H 12/26/16 08:05 INR 1.2 12/26/16 08:05 APTT 39 SECONDS (21-34) H 12/26/16 08:05 - Head Exam Head Exam: ATRAUMATIC, NORMOCEPHALIC - Eye Exam Eye Exam: Normal appearance - ENT Exam ENT Exam: Mucous Membranes Moist - Neck Exam Neck Exam: Normal Inspection - Respiratory Exam Respiratory Exam: Rales - Cardiovascular Exam Cardiovascular Exam: REGULAR RHYTHM - GI/Abdominal Exam GI & Abdominal Exam: Soft, Normal Bowel Sounds Assessment and Plan (1) COPD (chronic obstructive pulmonary disease) Assessment & Plan: IV steroids and nebulizer treat Transfuse if necessary Continue-high flow oxygen CPAP as needed Continue hemodialysis Status: Acute (2) Pulmonary hypertension Status: Acute (3) Anemia Status: Acute (4) CHF (congestive heart failure) Status: Acute (5) Acute kidney injury Status: Acute
[2016-12-30] MEDS: Lidocaine 5% Patch TD SCH (21:01)
--- NOTE | 2016-12-30 23:47 | CP.PCM.PN ---
Subjective - Date & Time of Evaluation Date of Evaluation: 12/30/16 Time of Evaluation: 16:30 - Subjective Subjective: Patient seen and evaluated Still has dyspnea On regular HD with fluid removal CXR: Vascular congestion Physical Exam - Constitutional Appears: Dyspnea - Head Exam Head Exam: ATRAUMATIC, NORMAL INSPECTION, NORMOCEPHALIC - Eye Exam Eye Exam: EOMI, Normal appearance, PERRL - ENT Exam ENT Exam: Mucous Membranes Moist - Neck Exam Neck exam: Positive for: Normal Inspection. Negative for: Thyromegaly - Respiratory Exam Respiratory Exam: Decreased Breath Sounds. absent: Accessory Muscle Use - Cardiovascular Exam Cardiovascular Exam: REGULAR RHYTHM, +S1, +S2. absent: JVD - GI/Abdominal Exam GI & Abdominal Exam: Hypoactive Bowel Sounds, Tenderness - Extremities Exam Extremities exam: Positive for: pedal edema, pedal pulses present - Neurological Exam Neurological exam: Alert, CN II-XII Intact, Oriented x3 - Psychiatric Exam Psychiatric exam: Normal Affect, Normal Mood - Skin Skin Exam: Dry, Intact, Normal Color, Warm Objective - Vital Signs/Intake and Output Vital Signs (last 24 hours): Temp Pulse Resp BP Pulse Ox 98.2 F 67 22 92/33 L 100 12/30/16 20:00 12/30/16 23:06 12/30/16 23:06 12/30/16 23:06 12/30/16 23:06 Intake and Output: 12/30/16 12/31/16 18:59 06:59 Intake Total 350 150 Output Total 300 0 Balance 50 150 - Medications Medications: Current Medications Famotidine (Pepcid) 20 mg PO DAILY [facility] Last Admin: 12/30/16 13:51 Dose: 20 mg Ferrous Sulfate (Feosol) 325 mg PO DAILY [facility] Last Admin: 12/30/16 13:51 Dose: 325 mg Glipizide (Glucotrol) 10 mg PO DAILY [facility] Last Admin: 12/30/16 13:52 Dose: 10 mg Heparin Sodium (Porcine) (Heparin) 5,000 units SC Q12 [facility] Last Admin: 12/30/16 21:30 Dose: 5,000 units Piperacillin Sod/Tazobactam Sod (Zosyn 2.25 Gm Iv Premix) 2.25 gm in 50 mls @ 100 mls/hr IVPB Q8H [facility] Last Admin: 12/30/16 22:41 Dose: 100 mls/hr Doxycycline Hyclate 100 mg/ (Sodium Chloride) 100 mls @ 100 mls/hr IVPB Q12H [facility] Last Admin: 12/30/16 21:00 Dose: 100 mls/hr Insulin Human Regular (Novolin R) 0 unit SC ACHS [facility] PRN Reason: Protocol Last Admin: 12/30/16 22:14 Dose: Not Given Levothyroxine Sodium (Synthroid) 75 mcg PO DAILY@0630 [facility] Last Admin: 12/30/16 05:51 Dose: 75 mcg Lidocaine (Lidoderm) 1 ea TD DAILY [facility] Last Admin: 12/30/16 21:01 Dose: 1 ea Methylprednisolone (Solu-Medrol) 40 mg IVP Q8H [facility] Last Admin: 12/30/16 18:12 Dose: 40 mg Rosuvastatin Calcium (Crestor) 5 mg PO HS [facility] Last Admin: 12/30/16 21:30 Dose: 5 mg Sevelamer Carbonate (Renvela) 1,600 mg PO TIDCC [facility] Last Admin: 12/30/16 18:12 Dose: 1,600 mg - Labs Labs: 12/30/16 06:52 12/30/16 06:52 PT 13.1 SECONDS (9.7-12.2) H 12/26/16 08:05 INR 1.2 12/26/16 08:05 APTT 39 SECONDS (21-34) H 12/26/16 08:05 Assessment and Plan - Assessment and Plan (Free Text) Assessment: (1) Atrial fibrillation Assessment and Plan: * Continue home meds: Amiodarone 200 mg daily, Cardizem 240 mg daily * Patient is not on anticoagulation secondary to anemia * CHADS: 4 (DM, Age, HTN, CHF) * HASBLED:2 (Age and Renal Disease) Status: Acute Not on AC due to low Hgb Check stool guiac Start Heparin IV once Hgb above 9 and guiac negative (2) Acute kidney injury superimposed on chronic kidney disease Assessment and Plan: * Nephrology Dr. Bill consulted-->help appreciated * Vascular Surgery: Dr. Ontiveros-->help appreciated * Surgery consulted; tunneled dialysis catheter placed 12/25; f * Heme-Oncology: Dr Martinez-->help appreciated * Possible patient has light chain multiple myeloma * Recommended for SPEP, IPEP, free light chain lambda, free light chain kappa, 24 hr urine UPEP, urine IPEP, beta2 microglobulin, and LDH-->pending * Prior SPEP: (12/02/16): M Adarsh migrating in the gamma globulin region * BUN/Cr elevated today: 90/7.7 * 12/25 Urinanalysis: +leuk esterase, 2+ protein, + Wbc and + RBC * f/u urine culture-->pending * Ct Abdomen/Pelvis (12/25/16): No evidence of nephrolithiasis or hydronephrosis , 1,5 cm exophyitc high attentuation lesion at the mid to lower pole of right kidney. possibility of renal cell carcnioma should be excluded. 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 Airspace consolidation at left lobe associated with small pleural fussion suspicious for pneumonia Status: Acute (3) Possible Multiple Myeloma Assessment and Plan: * Criteria: anemia, renal insufficiency, hypercalcemia * Nephrology Dr. Bill consulted-->help appreciated * Vascular Surgery: Dr. Ontiveros-->help appreciated * Surgery consulted and will place permacath with plan for HD today * Heme-Oncology: Dr Martinez-->help appreciated * Possible patient has light chain multiple myeloma * Recommended for SPEP, IPEP, free light chain lambda, free light chain kappa, 24 hr urine UPEP, urine IPEP, beta2 microglobulin, and LDH-->pending * BUN/Cr elevated today: 90/7.7 * 12/25 Urinanalysis: +leuk esterase, 2+ protein, + Wbc and + RBC * f/u urine culture-->pending * Ct Abdomen/Pelvis (12/25/16): No evidence of nephrolithiasis or hydronephrosis , 1,5 cm exophyitc high attentuation lesion at the mid to lower pole of right kidney. possibility of renal cell carcnioma should be excluded. 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 Airspace consolidation at left lobe associated with small pleural fussion suspicious for pneumoni Status: Acute (4) Diastolic CHF Assessment and Plan: * History of diastolic congestive heart failure * Cardiology (Dr. Little) on consult; covering for Dr. Lynch's patients * ProBNP today: 19506 * 06/28/16 Echo showed EF of 83% with borderline concentric LVH. Mild-moderate mitral regurgitation * 12/01 EKG: normal, NSR * monitor intake and output * Daily Weights Status: Acute Prior cath: Non obstructive (5) Anemia Assessment and Plan: * Heme-onc (Dr. Martinez) on board-->help appreciated * Discussed with PMD: Dr. Winkler-->patient has had workup including GI workup in 2017 in regards to anemia * Thought to be chronic secondary to kidney disease * Continue home meds Ferrous sulfate 325 mg daily * s/p 1 unit of PRBC on 12/25 7.2 * 12/25 stool occult blood: negative * Prior hospitalizations included in patient's chart; awaiting copy of report of GI workup Status: Chronic (6) HTN (hypertension) Assessment and Plan: * Monitor vital signs * Restart Amiodarone 200mg PO daily and Cardizem 240mg PO daily Status: Chronic (7) Leukocytosis Assessment and Plan: * In the ED, order for dose of Zosyn and Vancomycin on 12/25 * Difficult to discern if patient has pneumonia given she is also appears fluid overload * Post dialysis chest xray 12/26 * Strep, legionella: negative and mycoplasma IgM: negative * Patient recently at the hospital within 90 days-->consideration for possible hospital acquired pneumonia * Patient does not meet sepsis critera (04/19: leukocytosis) * Start Zosyn 2.25 gr IV Q8H (active since 12/25/16) and Doxcycline 100mg IV Q 12hours (active since 12/25/16) * Discussed with ED nurse, blood and urine cultures were collected-->pending Status: Acute (8) History of asthma Assessment and Plan: * continue home meds: Pulmicort Flexhaler 90 mcg INH RQ12hr * f/u sputum culture-->pending Status: Chronic (9) History of Gastritis Assessment and Plan: * Pepcid 20mg PO daily Status: Chronic (10) Diabetes 1.5, managed as type 2 Assessment and Plan: * Continue home meds: Glipizide 10 mg daily * daily Accuchecks QAC and HS * [id number] Status: Chronic (11) Hypothyroidism Status: Chronic * Order TSH in AM-->pending Status: Chronic (12) Hepatitis Assessment and Plan: * RUQ pain will f/u Amylase, lipase which are normal * LFTs are normal Status: Chronic (13) History of back pain Assessment and Plan: * held Magnesium oxide 400 mg BID; Tramadol-Acetaminophen 32.5-325 mg 2 tablets Q6hr Status: Acute (14) Lower extremity pain Assessment and Plan: * Held Magnesium oxide 400 mg BID; Tramadol-Acetaminophen 32.5-325 mg 2 tablets Q6hr Status: Acute (15) Prophylactic measure Assessment and Plan: * DVT: SCD * GI: Omeprazole 20 mg daily * Chemical anticoagulation contraindicated secondary anemia * Monitor intake and output * Daily Weight Status: Acute
[2016-12-31 00:29] LABS: ABG ALLEN TEST POS; ARTERIAL BLOOD GAS MODE HI FLOW; ARTERIAL BLOOD HGB O2 SAT 95.9 % (95.0-98.0); CARBOXYHEMOGLOBIN 2.4 % (0.5-1.5); DRAW SITE R RAD; HHB 0.8 % (0.0-5.0); METHEMOGLOBIN 0.9 % (0.0-3.0)
[2016-12-31] MEDS: MethylPREDNISolone 40 mg Vial IVP SCH ×3 (02:06→16:59)
[2016-12-31] MEDS: Piperacill/Tazo 2.25gm in Dex 2.25 GM/50 ML BAG IVPB SCH ×3 (06:07→22:29)
[2016-12-31] MEDS: Levothyroxine 75 MCG TAB PO SCH (06:07)
[2016-12-31 06:29] LABS: BASO % 0.1 % (0.0-2.0); HEMATOCRIT 19.5 % (34.0-47.0); LYMPH # 0.7 K/uL (1.0-4.3); MEAN CELL VOLUME 96.3 fL (81.0-99.0); MEAN CORPUSCULAR HEMOGLOBIN 31.5 pg (27.0-31.0); MEAN CORPUSCULAR HGB CONC 32.7 g/dL (33.0-37.0); MEAN PLATELET VOLUME 8.5 fL (7.2-11.7); MONO # 0.6 K/uL (0.0-0.8); MONO % 3.3 % (0.0-10.0); NRBC % 0.2 % (0.0-2.0); PLATELET COUNT 197 K/uL (130-400); RED CELL DISTRIBUTION WIDTH 16.1 % (11.5-14.5); WHITE BLOOD COUNT 17.2 K/uL (4.8-10.8)
[2016-12-31 06:42] LABS: POTASSIUM 4.3 mmol/L (3.6-5.2)
[2016-12-31 06:44] LABS: ALB/GLOB RATIO 1.3 (1.0-2.1); BILIRUBIN,TOTAL 0.6 mg/dL (0.2-1.3); PHOSPHOROUS 6.2 mg/dL (2.5-4.5); TOTAL PROTEIN 5.5 g/dL (6.3-8.3)
[2016-12-31 06:45] LABS: CALCIUM 7.9 mg/dl (8.6-10.4)
[2016-12-31] MEDS: (Novolin R) Insulin Human Regular 100 units/ml vial SC SCH ×5 (08:07→22:13)
[2016-12-31 10:02] LABS: NEUTROPHIL 93 % (50-75); TOTAL CELLS COUNTED 100
--- NOTE | 2016-12-31 10:07 | CT ---
PROCEDURE: CT Chest without contrast HISTORY: multiple myeloma, renal failure, pulmonary involve COMPARISON: Comparison is made to the previous study dated 07/02/2016 TECHNIQUE: Contiguous axial images were obtained through the chest without intravenous contrast enhancement. Sagittal and coronal reconstructions were performed. Radiation dose (DLP): 710.21 mGy-cm. This CT exam was performed using one or more of the following dose reduction techniques: Automated exposure control, adjustment of the mA and/or kV according to patient size, and/or use of iterative reconstruction technique. FINDINGS: LUNGS: Interval significant worsening of patchy dense ground-glass opacities in the lungs since the previous exam. Findings are nonspecific. There is also thickening and prominent of the interstitial septum with somewhat crazy paving appearance of the lungs. There is mild central bronchiectasis seen. MEDIASTINUM: Unremarkable thoracic aorta. No aneurysm. The heart is mildly to moderately enlarged. There is right-sided hemodialysis catheter extending to the right at radium. Large calcifications seen at the mitral valve. Main pulmonary artery unremarkable. No vascular congestion. No lymphadenopathy. PLEURA: There is small left pleural effusion. BONES: There are diffuse lytic bony lesions in the osseous structures consistent with the patient's history of multiple myeloma. Mild compression deformity is noted at T12 and to a less degree at T11 vertebral bodies. UPPER ABDOMEN: Grossly unremarkable. OTHER FINDINGS: None. IMPRESSION: Interval worsening of nonspecific ground-glass opacities in the lungs since the previous exam. There is also interstitial septal thickening and crazy paving appearance of the lungs. Correlate clinically for possible pulmonary hemorrhage, pulmonary alveolar proteinosis or interstitial pneumonitis. Mild cardiomegaly. Small left pleural effusion. Diffuse lytic bony lesion consistent with multiple myeloma.
[2016-12-31] MEDS: Lidocaine 5% Patch TD SCH (12:07)
--- NOTE | 2016-12-31 14:19 | CP.CCUPN ---
CCU Subjective - Physician Review Events Since Last Encounter (Free Text): 12/31/16 14:16 still SOB with movement. CCU Objective - Vital Signs / Intake & Output Vital Signs (Last 4 hours): Vital Signs Temp Pulse Pulse Resp BP BP Pulse Ox 12/31/16 13:18 22 12/31/16 12:30 97.6 F 67 25 H 109/50 L 100 12/31/16 12:05 103/47 L 12/31/16 12:04 66 19 103/47 L 98 12/31/16 12:00 65 18 97 12/31/16 11:50 97.6 F 12/31/16 11:49 66 20 97/41 L 94 L 12/31/16 11:35 98/44 L 12/31/16 11:34 60 16 98/44 L 100 12/31/16 11:19 68 18 90/51 L 98 12/31/16 11:05 98/46 L 12/31/16 11:04 60 17 97/45 L 100 12/31/16 11:02 62 16 98/46 L 100 12/31/16 11:00 61 18 100 12/31/16 10:50 102/50 L 12/31/16 10:49 62 17 102/50 L 100 12/31/16 10:35 104/50 L 12/31/16 10:30 68 20 104/50 L 100 12/31/16 10:20 63 22 113/55 L 118/66 100 12/31/16 10:18 63 17 118/66 100 Intake and Output (Last 8hrs): Intake & Output 12/30/16 12/31/16 12/31/16 22:59 06:59 14:59 Intake Total 200 120 320 Output Total 300 0 Balance -100 120 320 Weight 186 lb Intake: Intake, IV Amount 50 100 Right Wrist 50 100 Oral 200 70 220 Output: Urine 300 0 Urine, Voided 300 0 Other: # Bowel Movements 0 1 - Physical Exam Head: Positive for: Atraumatic, Normocephalic Pupils: Positive for: PERRL Extroacular Muscles: Positive for: EOMI Mouth: Positive for: Moist Mucous Membranes Respiratory/Chest: Positive for: Rhonchi Cardiovascular: Positive for: Regular Rate and Rhythm, Normal S1, S2 Abdomen: Positive for: Normal Bowel Sounds. Negative for: Tenderness, Distention Upper Extremity: Negative for: Edema Lower Extremity: Negative for: Edema Neurological: Positive for: CN II-XII Intact, Speech Normal Psychiatric: Positive for: Alert, Oriented x 3, Normal Insight - Medications Active Medications: Active Medications Generic Name Dose Route Start Last Admin Trade Name Freq PRN Reason Stop Dose Admin Famotidine 20 mg 12/27/16 10:00 12/31/16 09:00 Pepcid PO 20 mg DAILY MARIBETH Administration Ferrous Sulfate 325 mg 12/26/16 10:00 12/31/16 09:00 Feosol PO 325 mg DAILY MARIBETH Administration Glipizide 10 mg 12/27/16 10:00 12/31/16 09:00 Glucotrol PO 10 mg DAILY MARIBETH Administration Heparin Sodium (Porcine) 5,000 units 12/30/16 10:00 12/31/16 09:01 Heparin SC 5,000 units Q12 MARIBETH Administration Piperacillin Sod/Tazobactam Sod 2.25 gm in 50 mls @ 100 mls/hr 12/25/16 23:00 12/31/16 06:07 Zosyn 2.25 Gm Iv Premix IVPB 100 mls/hr Q8H MARIBETH Administration Doxycycline Hyclate 100 mg/ 100 mls @ 100 mls/hr 12/25/16 21:00 12/31/16 08: 08 Sodium Chloride IVPB 100 mls/hr Q12H MARIBETH Administration Insulin Human Regular 0 unit 12/31/16 10:15 12/31/16 12:07 Novolin R SC 8 unit ACHS MARIBETH Administration Protocol Levothyroxine Sodium 75 mcg 12/26/16 06:30 12/31/16 06:07 Synthroid PO 75 mcg DAILY@0630 MARIBETH Administration Lidocaine 1 ea 12/30/16 21:00 12/31/16 12:07 Lidoderm TD 1 ea DAILY MARIBETH Administration Methylprednisolone 40 mg 12/27/16 17:45 12/31/16 09:00 Solu-Medrol IVP 40 mg Q8H MARIBETH Administration Rosuvastatin Calcium 5 mg 12/30/16 22:00 12/30/16 21:30 Crestor PO 5 mg HS MARIBETH Administration Sevelamer Carbonate 1,600 mg 12/30/16 08:00 12/31/16 12:08 Renvela PO 1,600 mg TIDCC MARIBETH Administration - Patient Studies Lab Studies: Microbiology Studies 12/29/16 20:30 Blood Culture - Preliminary Blood NO GROWTH AFTER 24 HOURS 12/29/16 20:00 Blood Culture - Preliminary Blood NO GROWTH AFTER 24 HOURS 12/25/16 15:45 Blood Culture - Final Blood NO GROWTH AFTER 5 DAYS Gram Stain - Final 12/25/16 16:10 Blood Culture - Final Blood NO GROWTH AFTER 5 DAYS Gram Stain - Final Lab Studies 12/31/16 12/31/16 12/31/16 Range/Units 11:44 07:38 06:19 WBC 17.2 H (4.8-10.8) K/uL RBC 2.03 L (3.80-5.20) Mil/uL Hgb 6.4 L* (11.0-16.0) g/dL Hct 19.5 L (34.0-47.0) % MCV 96.3 (81.0-99.0) fL MCH 31.5 H (27.0-31.0) pg MCHC 32.7 L (33.0-37.0) g/dL RDW 16.1 H (11.5-14.5) % Plt Count 197 (130-400) K/uL MPV 8.5 (7.2-11.7) fL Neut % (Auto) 92.6 H (50.0-75.0) % Lymph % (Auto) 4.0 L (20.0-40.0) % [place] % (Auto) 3.3 (0.0-10.0) % Eos % (Auto) 0.0 (0.0-4.0) % Baso % (Auto) 0.1 (0.0-2.0) % Neut # 16.0 H (1.8-7.0) K/uL Lymph # 0.7 L (1.0-4.3) K/uL [place] # 0.6 (0.0-0.8) K/uL Eos # 0.0 (0.0-0.7) K/uL Baso # 0.0 (0.0-0.2) K/uL Neutrophils % (Manual) 93 H (50-75) % Band Neutrophils % 2 (0-2) % Lymphocytes % (Manual) 4 L (20-40) % Monocytes % (Manual) 1 (0-10) % Platelet Estimate Normal (NORMAL) Polychromasia Slight Hypochromasia (manual) Slight Anisocytosis (manual) Slight Macrocytosis (manual) Slight Ovalocytes Slight Puncture Site pCO2 (35-45) mm/Hg pO2 (80-100) mm/Hg HCO3 (21-28) mmol/L ABG pH (7.35-7.45) ABG Total CO2 (22-28) mmol/L ABG O2 Saturation (95-98) % ABG Base Excess (-2.0-3.0) mmol/L ABG Hemoglobin (11.7-17.4) g/dL ABG Carboxyhemoglobin (0.5-1.5) % POC ABG HHb (Measured) (0.0-5.0) % ABG Methemoglobin (0.0-3.0) % Walt Test A-a O2 Difference mm/Hg Respiratory Index Hgb O2 Saturation (95.0-98.0) % Liter Flow Vent Mode FiO2 % Crit Value Called To Crit Value Called By Crit Value Read Back Blood Gas Notified Time Sodium (132-148) mmol/L Potassium (3.6-5.2) mmol/L Chloride (98-107) mmol/L Carbon Dioxide (22-30) mmol/L Anion Gap (10-20) BUN (7-17) mg/dL Creatinine (0.7-1.2) MG/DL Est GFR ( Amer) Est GFR (Non-Af Amer) POC Glucose (mg/dL) 324 H 306 H (65-110) mg/dL Random Glucose (65-105) mg/dL Calcium (8.6-10.4) mg/dl Phosphorus (2.5-4.5) mg/dL Magnesium (1.6-2.3) mg/dL Total Bilirubin (0.2-1.3) mg/dL AST (14-36) U/L ALT (9-52) U/L Alkaline Phosphatase (38-126) U/L Total Protein (6.3-8.3) g/dL Albumin (3.5-5.0) g/dL Globulin (2.2-3.9) gm/dL Albumin/Globulin Ratio (1.0-2.1) Triglycerides (0-149) mg/dL Cholesterol (0-199) mg/dL LDL Cholesterol Direct (0-129) mg/dL HDL Cholesterol (30-70) mg/dL PTH Related Protein (14-27) pg/mL 12/31/16 12/31/16 12/30/16 Range/Units 06:19 00:13 21:21 WBC (4.8-10.8) K/uL RBC (3.80-5.20) Mil/uL Hgb (11.0-16.0) g/dL Hct (34.0-47.0) % MCV (81.0-99.0) fL MCH (27.0-31.0) pg MCHC (33.0-37.0) g/dL RDW (11.5-14.5) % Plt Count (130-400) K/uL MPV (7.2-11.7) fL Neut % (Auto) (50.0-75.0) % Lymph % (Auto) (20.0-40.0) % [place] % (Auto) (0.0-10.0) % Eos % (Auto) (0.0-4.0) % Baso % (Auto) (0.0-2.0) % Neut # (1.8-7.0) K/uL Lymph # (1.0-4.3) K/uL [place] # (0.0-0.8) K/uL Eos # (0.0-0.7) K/uL Baso # (0.0-0.2) K/uL Neutrophils % (Manual) (50-75) % Band Neutrophils % (0-2) % Lymphocytes % (Manual) (20-40) % Monocytes % (Manual) (0-10) % Platelet Estimate (NORMAL) Polychromasia Hypochromasia (manual) Anisocytosis (manual) Macrocytosis (manual) Ovalocytes Puncture Site R rad pCO2 47 H (35-45) mm/Hg pO2 77 L (80-100) mm/Hg HCO3 28.6 H (21-28) mmol/L ABG pH 7.41 (7.35-7.45) ABG Total CO2 31.2 H (22-28) mmol/L ABG O2 Saturation 99.2 H (95-98) % ABG Base Excess 4.7 H (-2.0-3.0) mmol/L ABG Hemoglobin 6.1 L (11.7-17.4) g/dL ABG Carboxyhemoglobin 2.4 H (0.5-1.5) % POC ABG HHb (Measured) 0.8 (0.0-5.0) % ABG Methemoglobin 0.9 (0.0-3.0) % Walt Test Pos A-a O2 Difference 577.0 mm/Hg Respiratory Index 7.5 Hgb O2 Saturation 95.9 (95.0-98.0) % Liter Flow 40.0 Vent Mode Hi flow FiO2 100.0 % Crit Value Called To Dr posadas Crit Value Called By Betzy bonilla rt Crit Value Read Back Y Blood Gas Notified Time 28 Sodium 138 (132-148) mmol/L Potassium 4.3 (3.6-5.2) mmol/L Chloride 96 L (98-107) mmol/L Carbon Dioxide 28 (22-30) mmol/L Anion Gap 19 (10-20) BUN 69 H (7-17) mg/dL Creatinine 2.9 H (0.7-1.2) MG/DL Est GFR ( Amer) 19 Est GFR (Non-Af Amer) 16 POC Glucose (mg/dL) 218 H (65-110) mg/dL Random Glucose 219 H (65-105) mg/dL Calcium 7.9 L (8.6-10.4) mg/dl Phosphorus 6.2 H (2.5-4.5) mg/dL Magnesium 2.0 (1.6-2.3) mg/dL Total Bilirubin 0.6 (0.2-1.3) mg/dL AST 14 (14-36) U/L ALT 33 (9-52) U/L Alkaline Phosphatase 59 (38-126) U/L Total Protein 5.5 L (6.3-8.3) g/dL Albumin 3.1 L (3.5-5.0) g/dL Globulin 2.4 (2.2-3.9) gm/dL Albumin/Globulin Ratio 1.3 (1.0-2.1) Triglycerides 163 H D (0-149) mg/dL Cholesterol 104 (0-199) mg/dL LDL Cholesterol Direct 60 (0-129) mg/dL HDL Cholesterol 28 L (30-70) mg/dL PTH Related Protein (14-27) pg/mL 12/30/16 12/27/16 Range/Units 16:24 08:16 WBC (4.8-10.8) K/uL RBC (3.80-5.20) Mil/uL Hgb (11.0-16.0) g/dL Hct (34.0-47.0) % MCV (81.0-99.0) fL MCH (27.0-31.0) pg MCHC (33.0-37.0) g/dL RDW (11.5-14.5) % Plt Count (130-400) K/uL MPV (7.2-11.7) fL Neut % (Auto) (50.0-75.0) % Lymph % (Auto) (20.0-40.0) % [place] % (Auto) (0.0-10.0) % Eos % (Auto) (0.0-4.0) % Baso % (Auto) (0.0-2.0) % Neut # (1.8-7.0) K/uL Lymph # (1.0-4.3) K/uL [place] # (0.0-0.8) K/uL Eos # (0.0-0.7) K/uL Baso # (0.0-0.2) K/uL Neutrophils % (Manual) (50-75) % Band Neutrophils % (0-2) % Lymphocytes % (Manual) (20-40) % Monocytes % (Manual) (0-10) % Platelet Estimate (NORMAL) Polychromasia Hypochromasia (manual) Anisocytosis (manual) Macrocytosis (manual) Ovalocytes Puncture Site pCO2 (35-45) mm/Hg pO2 (80-100) mm/Hg HCO3 (21-28) mmol/L ABG pH (7.35-7.45) ABG Total CO2 (22-28) mmol/L ABG O2 Saturation (95-98) % ABG Base Excess (-2.0-3.0) mmol/L ABG Hemoglobin (11.7-17.4) g/dL ABG Carboxyhemoglobin (0.5-1.5) % POC ABG HHb (Measured) (0.0-5.0) % ABG Methemoglobin (0.0-3.0) % Walt Test A-a O2 Difference mm/Hg Respiratory Index Hgb O2 Saturation (95.0-98.0) % Liter Flow Vent Mode FiO2 % Crit Value Called To Crit Value Called By Crit Value Read Back Blood Gas Notified Time Sodium (132-148) mmol/L Potassium (3.6-5.2) mmol/L Chloride (98-107) mmol/L Carbon Dioxide (22-30) mmol/L Anion Gap (10-20) BUN (7-17) mg/dL Creatinine (0.7-1.2) MG/DL Est GFR ( Amer) Est GFR (Non-Af Amer) POC Glucose (mg/dL) 211 H (65-110) mg/dL Random Glucose (65-105) mg/dL Calcium (8.6-10.4) mg/dl Phosphorus (2.5-4.5) mg/dL Magnesium (1.6-2.3) mg/dL Total Bilirubin (0.2-1.3) mg/dL AST (14-36) U/L ALT (9-52) U/L Alkaline Phosphatase (38-126) U/L Total Protein (6.3-8.3) g/dL Albumin (3.5-5.0) g/dL Globulin (2.2-3.9) gm/dL Albumin/Globulin Ratio (1.0-2.1) Triglycerides (0-149) mg/dL Cholesterol (0-199) mg/dL LDL Cholesterol Direct (0-129) mg/dL HDL Cholesterol (30-70) mg/dL PTH Related Protein 51 H (14-27) pg/mL Laboratory Results - last 24 hr 12/27/16 12/30/16 12/30/16 08:16 16:24 21:21 WBC RBC Hgb Hct MCV MCH MCHC RDW Plt Count MPV Neut % (Auto) Lymph % (Auto) [place] % (Auto) Eos % (Auto) Baso % (Auto) Neut # Lymph # [place] # Eos # Baso # Neutrophils % (Manual) Band Neutrophils % Lymphocytes % (Manual) Monocytes % (Manual) Platelet Estimate Polychromasia Hypochromasia (manual) Anisocytosis (manual) Macrocytosis (manual) Ovalocytes Puncture Site pCO2 pO2 HCO3 ABG pH ABG Total CO2 ABG O2 Saturation ABG Base Excess ABG Hemoglobin ABG Carboxyhemoglobin POC ABG HHb (Measured) ABG Methemoglobin Walt Test A-a O2 Difference Respiratory Index Hgb O2 Saturation Liter Flow Vent Mode FiO2 Crit Value Called To Crit Value Called By Crit Value Read Back Blood Gas Notified Time Sodium Potassium Chloride Carbon Dioxide Anion Gap BUN Creatinine Est GFR ( Amer) Est GFR (Non-Af Amer) POC Glucose (mg/dL) 211 H 218 H Random Glucose Calcium Phosphorus Magnesium Total Bilirubin AST ALT Alkaline Phosphatase Total Protein Albumin Globulin Albumin/Globulin Ratio Triglycerides Cholesterol LDL Cholesterol Direct HDL Cholesterol PTH Related Protein 51 H 12/31/16 12/31/16 12/31/16 00:13 06:19 06:19 WBC 17.2 H RBC 2.03 L Hgb 6.4 L* Hct 19.5 L MCV 96.3 MCH 31.5 H MCHC 32.7 L RDW 16.1 H Plt Count 197 MPV 8.5 Neut % (Auto) 92.6 H Lymph % (Auto) 4.0 L [place] % (Auto) 3.3 Eos % (Auto) 0.0 Baso % (Auto) 0.1 Neut # 16.0 H Lymph # 0.7 L [place] # 0.6 Eos # 0.0 Baso # 0.0 Neutrophils % (Manual) 93 H Band Neutrophils % 2 Lymphocytes % (Manual) 4 L Monocytes % (Manual) 1 Platelet Estimate Normal Polychromasia Slight Hypochromasia (manual) Slight Anisocytosis (manual) Slight Macrocytosis (manual) Slight Ovalocytes Slight Puncture Site R rad pCO2 47 H pO2 77 L HCO3 28.6 H ABG pH 7.41 ABG Total CO2 31.2 H ABG O2 Saturation 99.2 H ABG Base Excess 4.7 H ABG Hemoglobin 6.1 L ABG Carboxyhemoglobin 2.4 H POC ABG HHb (Measured) 0.8 ABG Methemoglobin 0.9 Walt Test Pos A-a O2 Difference 577.0 Respiratory Index 7.5 Hgb O2 Saturation 95.9 Liter Flow 40.0 Vent Mode Hi flow FiO2 100.0 Crit Value Called To Dr posadas Crit Value Called By Betzy bonilla rt Crit Value Read Back Y Blood Gas Notified Time 28 Sodium 138 Potassium 4.3 Chloride 96 L Carbon Dioxide 28 Anion Gap 19 BUN 69 H Creatinine 2.9 H Est GFR ( Amer) 19 Est GFR (Non-Af Amer) 16 POC Glucose (mg/dL) Random Glucose 219 H Calcium 7.9 L Phosphorus 6.2 H Magnesium 2.0 Total Bilirubin 0.6 AST 14 ALT 33 Alkaline Phosphatase 59 Total Protein 5.5 L Albumin 3.1 L Globulin 2.4 Albumin/Globulin Ratio 1.3 Triglycerides 163 H D Cholesterol 104 LDL Cholesterol Direct 60 HDL Cholesterol 28 L PTH Related Protein 12/31/16 12/31/16 07:38 11:44 WBC RBC Hgb Hct MCV MCH MCHC RDW Plt Count MPV Neut % (Auto) Lymph % (Auto) [place] % (Auto) Eos % (Auto) Baso % (Auto) Neut # Lymph # [place] # Eos # Baso # Neutrophils % (Manual) Band Neutrophils % Lymphocytes % (Manual) Monocytes % (Manual) Platelet Estimate Polychromasia Hypochromasia (manual) Anisocytosis (manual) Macrocytosis (manual) Ovalocytes Puncture Site pCO2 pO2 HCO3 ABG pH ABG Total CO2 ABG O2 Saturation ABG Base Excess ABG Hemoglobin ABG Carboxyhemoglobin POC ABG HHb (Measured) ABG Methemoglobin Walt Test A-a O2 Difference Respiratory Index Hgb O2 Saturation Liter Flow Vent Mode FiO2 Crit Value Called To Crit Value Called By Crit Value Read Back Blood Gas Notified Time Sodium Potassium Chloride Carbon Dioxide Anion Gap BUN Creatinine Est GFR ( Amer) Est GFR (Non-Af Amer) POC Glucose (mg/dL) 306 H 324 H Random Glucose Calcium Phosphorus Magnesium Total Bilirubin AST ALT Alkaline Phosphatase Total Protein Albumin Globulin Albumin/Globulin Ratio Triglycerides Cholesterol LDL Cholesterol Direct HDL Cholesterol PTH Related Protein Fingerstick Blood Sugar Results: 324 Review of Systems - Review of Systems All systems: reviewed and no additional remarkable complaints except - Constitutional Constitutional: UN - EENT Eyes: UNREMARKABLE Ears: UNREMARKABLE Nose/Mouth/Throat: UNREMARKABLE - Respiratory Respiratory: Dyspnea on Exertion Critical Care Progress Note - Nutrition Nutrition: Nutrition Category Date Time Status Renal Diet [DIET] Diets 12/25/16 Dinner Active Assessment/Plan (1) Acute respiratory failure Assessment and plan: 81 year old female with PMHx of COPD, severe pulm HTN, CHF, A-Fib, HTN, Anemia, DM, hypothyroidism, Gastritis, Hepatitis C (treated) presenting with SOB, shoulder pain and Acute Renal Failure. Neuro: Alert and oriented 3 Pulm: Acute hypoxic respiratory failure secondary to interstitial pneumonitis, seen on CT chest. COPD continue Methylprednisolone IV every 8h. Patient may need bronch with BAL/biopsy, consulted Dr. Kessler. Patient may have pulmonary invasive Myeloma (rare, chemotx will help), vs infectious etiology. CV: Acute on chronic decompensated diastolic heart failure, fluid removal via dialysis, NOT IMPROVING PULMONARY function/radiographic appearance. Hem: Worsening anemia, multifactorial with critical illness, multiple myeloma. Will monitor. Multiple myeloma, intended treatment with Velcade and Cytoxan and Decadron. Bone marrow biopsy planned once patient is stable. Hem/Onc following. Renal: acute renal failure requiring Daily dialysis for fluid removal. Endo: DM type II, regular insulin sliding scale for coverage, Glucotrol. Hypothyroidism, continue levothyroxine. GI: Diabetic diet ID: Possible pneumonia, continue doxycycline, and Zosyn. DVT proph - heparin subcutaneous GI proph - Pepcid valencia for strict I/O's during acute illness Code status - full code Critical Care Time spent Multi-disciplinary rounds were performed with house staff, nursing, speech therapy, respiratory therapy, pharmacy and nutrition with integrated input from the primary team/attending and other consulting services. The documented time is cumulative and includes review of patient data/exams/labs/chart review and examination of the patient on rounds and throughout the day; time is exclusive of any procedures or teaching time. Current Visit: Yes Status: Acute
--- NOTE | 2016-12-31 21:50 | CP.PCM.PN ---
Subjective - Date & Time of Evaluation Date of Evaluation: 12/31/16 Time of Evaluation: 07:35 - Subjective Subjective: Medical Attending Note: Patient seen at bedside. Patient reports shortness of breathe improved on high flow. Patient wants a medication to calm her but instructed her that it can cause respiratory depression. Discussed with ICU, patient's breathing nor lung xray not improving with diaysis ; will need BAL/bronch for biopsy to see if invasive myeloma. Objective - Vital Signs/Intake and Output Vital Signs (last 24 hours): Temp Pulse Resp BP Pulse Ox 98.1 F 85 16 119/55 L 98 12/31/16 20:00 12/31/16 19:00 12/31/16 19:00 12/31/16 18:35 12/31/16 19:00 Intake and Output: 12/31/16 01/01/17 18:59 06:59 Intake Total 470 50 Balance 470 50 - Medications Medications: Current Medications Famotidine (Pepcid) 20 mg PO DAILY [facility] Last Admin: 12/31/16 09:00 Dose: 20 mg Ferrous Sulfate (Feosol) 325 mg PO DAILY [facility] Last Admin: 12/31/16 09:00 Dose: 325 mg Glipizide (Glucotrol) 10 mg PO DAILY [facility] Last Admin: 12/31/16 09:00 Dose: 10 mg Heparin Sodium (Porcine) (Heparin) 5,000 units SC Q12 [facility] Last Admin: 12/31/16 21:01 Dose: 5,000 units Piperacillin Sod/Tazobactam Sod (Zosyn 2.25 Gm Iv Premix) 2.25 gm in 50 mls @ 100 mls/hr IVPB Q8H [facility] Last Admin: 12/31/16 15:52 Dose: 100 mls/hr Doxycycline Hyclate 100 mg/ (Sodium Chloride) 100 mls @ 100 mls/hr IVPB Q12H [facility] Last Admin: 12/31/16 20:47 Dose: 100 mls/hr Insulin Human Regular (Novolin R) 0 unit SC ACHS [facility] PRN Reason: Protocol Last Admin: 12/31/16 17:00 Dose: 6 unit Levothyroxine Sodium (Synthroid) 75 mcg PO DAILY@0630 [facility] Last Admin: 12/31/16 06:07 Dose: 75 mcg Lidocaine (Lidoderm) 1 ea TD DAILY [facility] Last Admin: 12/31/16 12:07 Dose: 1 ea Methylprednisolone (Solu-Medrol) 40 mg IVP Q8H [facility] Last Admin: 12/31/16 16:59 Dose: 40 mg Rosuvastatin Calcium (Crestor) 5 mg PO HS [facility] Last Admin: 12/31/16 21:01 Dose: 5 mg Sevelamer Carbonate (Renvela) 1,600 mg PO TIDCC [facility] Last Admin: 12/31/16 17:00 Dose: 1,600 mg - Labs Labs: 12/31/16 06:19 12/31/16 06:19 PT 13.1 SECONDS (9.7-12.2) H 12/26/16 08:05 INR 1.2 12/26/16 08:05 APTT 39 SECONDS (21-34) H 12/26/16 08:05 - Constitutional Appears: In Acute Distress, Chronically Ill - Head Exam Head Exam: NORMAL INSPECTION - Eye Exam Eye Exam: EOMI, PERRL - ENT Exam ENT Exam: Mucous Membranes Dry - Respiratory Exam Respiratory Exam: Decreased Breath Sounds - Cardiovascular Exam Cardiovascular Exam: Tachycardia, +S1, +S2 - GI/Abdominal Exam GI & Abdominal Exam: Distended, Soft, Normal Bowel Sounds Additional comments: obese habitus nontender no guarding no rebound observed - Extremities Exam Extremities Exam: Normal Capillary Refill Additional comments: no edema, no cyanosis, no clubbing b/l LE - Neurological Exam Neurological Exam: Alert, Awake, Oriented x3 - Psychiatric Exam Psychiatric exam: Normal Affect, Normal Mood - Skin Skin Exam: Dry, Intact, Normal Color, Warm Assessment and Plan - Assessment and Plan (Free Text) Assessment: (1) Acute Respiratory Distress Assessment and Plan: * Patient has history of COPD per pulmonary * Patient requires max oxygen support per ICU * CT Chest (12/31): interval worsening of nonspecific ground glass opacities in the lungs since the previous exam. Interstitial septal thickening and crazy paving appearance of the lungs. Mild cardiomegaly. Small left pleural effusion. Diffuse lytic bone lesion consistent with multiple myeloma * Solumedrol 40mg IV Q 8 hours * Will need BAL/Bronch to see if patient has invasive myeloma to the lung-->ICU has discussed with patient's pulm (2) Fluid Overload Assessment and Plan: * ProBNP today: 87826 * Contributing factors: acute on chronic kidney disease and hx of diastolic congestive heart failure * Vascular Surgery: Dr. Ontiveros-->notified by emergency room; for emergent dialysis access * Nephrology: Dr Bill on board-->acute on chronic kidney insufficiency, hypercalcemia; emergent dialysis * Chest Xray (12/25/16): prominent diffuse increased interstital lung markings throughout both lungs suggestive for edema and/or infiltrate * Chest Xray (12/27/16): persistent prominent diffuse increased consolidative changes throughtout both lungs with coarse reticular interstital airspce opacities. More focal confluent airspace consolidative changes in the right right midlung zone and left lung base with small left plueral effusion. Cardiomegaly * Echocardiogram (12/27/16) moderate left ventricular diastolic dysfunction. left atrium is moderately dilated. right atrium is mildly dilated, mitral annular calcification is moderate. mitral velve is calcified and displays decreased opening. Mild mitral valve stenosis. severe pulmonary hypertension., EF: 60% * Monitor intake output * Daily weights * 12/27/16: 2nd dialysis session today--> 2 liters removed * 12/28/16: Spoke with Dr. Bill-->dialysis for tomorrow; pending chest xray read * 12/29/16: stable heterogenous infiltrates are seen diffusely bilaterally and are unchanged compared to 12/28/16 prominent cardiac silhouteete is stable. Fractures at the left 3rd, 6th, and 9th ribs identified at latter stage of healing * 12/30/16: Had dialysis today * 12/31/16: Dialysis not improving lung exam (3) Acute kidney injury superimposed on chronic kidney disease Assessment and Plan: * Nephrology Dr. Bill consulted-->help appreciated * Hepatitis panel: Negative * HIV: negative * Mycoplasma Igm: negative * Legionella; Negative * Vascular Surgery: Dr. 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 * Recommended for SPEP, IPEP--->pending * free light chain lambda: 468014.7 * free light chain kappa: 17.5 * 24 hr urine UPEP-->resulting--> 2108 (high) * urine IPE * beta2 microglobulin * LDH: 522 * Prior SPEP: (12/02/16): M Adarsh migrating in the gamma globulin region; 12/25 : M spike * immuonfixation: pending * BUN/Cr elevated today: 90/7.7 * 12/25 Urinanalysis: +leuk esterase, 2+ protein, + Wbc and + RBC * urine culture: no growth (<1000 CFU/ml) * Ct Abdomen/Pelvis (12/25/16): No evidence of nephrolithiasis or hydronephrosis , 1,5 cm exophyitc high attentuation lesion at the mid to lower pole of right kidney. possibility of renal cell carcinoma should be excluded. 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 Airspace consolidation at left lobe associated with small pleural fussion suspicious for pneumonia * Patient to have dialysis today thru Sunday, 01/01 Status: Acute (4) Possible Multiple Myeloma Assessment and Plan: * Criteria: anemia, renal insufficiency, hypercalcemia * Nephrology Dr. Bill consulted-->help appreciated * Vascular Surgery: Dr. Ontiveros-->help appreciated * Surgery consulted and will place permacath with plan for HD today * Heme-Oncology: Dr Martinez-->help appreciated * Possible patient has light chain multiple myeloma * free light chain lambda: 094950.7 * free light chain kappa: 17.5 * 24 hr urine UPEP--> 2108 (high) * urine IPE--->--->pending * beta2 microglobulin--->--->pending * LDH: 522 * Prior SPEP: (12/02/16): M Adarsh migrating in the gamma globulin region; 12/25 : M spike * 12/27: discussed with Dr. Martinez, patient's for bone marrow biopsy for Sunday and possible start chemotherapy. * Echocardiogram (12/27/16) moderate left ventricular diastolic dysfunction. left atrium is moderately dilated. right atrium is mildly dilated, mitral annular calcification is moderate. mitral valve is calcified and displays decreased opening. Mild mitral valve stenosis. severe pulmonary hypertension., EF: 60% * Monitor intake output * BUN/Cr elevated today: 90/7.7 * 12/25 Urinanalysis: +leuk esterase, 2+ protein, + Wbc and + RBC * urine culture: no growth (<1000 CFU/ml) * Ct Abdomen/Pelvis (12/25/16): No evidence of nephrolithiasis or hydronephrosis , 1,5 cm exophyitc high attentuation lesion at the mid to lower pole of right kidney. possibility of renal cell carcnioma should be excluded. 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 Airspace consolidation at left lobe associated with small pleural fussion suspicious for pneumonia * Chest xray w rib (12/29/16): stable heterogenous infiltrates are seen diffusely bilaterally and are unchanged compared to 12/28/16 prominent cardiac silhouette is stable. Fractures at the left 3rd, 6th, and 9th ribs identified at latter stage of healing * 12/30: Heme-onc unable to do bone marrow biopsy because of patient's shortness of breathe; reports does not need bone marrow biopsy at this time; recommend for port a cath * 12/31: given possibility of invasive myeloma to the lung; may need bronch/bal for diagnosis Status: Acute (5) Hypercalcemia Assessment and Plan: * Likely secondary to Multiple Myeloma * Nephrology (Dr. Bill) on board-->help appreciated * Heme-onc (Dr. Martinez) on board--->help appreciated * Bone marrow biopsy today at 130PM * PTH related Protein: pending * PTH intact: 14 * Vitamin D: 66.6 * ОЛЕГ: 28 * Ionized Calcium: 6.7 * Possible patient has light chain multiple myeloma * Recommended for SPEP, IPEP--->pending * free light chain lambda: 266711.7 * free light chain kappa: 17.5 * 24 hr urine UPEP--> 2108 (high) * urine IPE--->--->pending * beta2 microglobulin--->--->pending * LDH: 522 * Prior SPEP: (12/02/16): M Adarsh migrating in the gamma globulin region; 12/25 : M spike Status: Acute (6) Possible CHF exacerbation Assessment and Plan: * History of diastolic congestive heart failure * Cardiology (Dr. Little) on consult; covering for Dr. Lynch's patients * ProBNP today: 04348 * Echocardiogram (12/27/16) moderate left ventricular diastolic dysfunction. left atrium is moderately dilated. right atrium is mildly dilated, mitral annular calcification is moderate. mitral valve is calcified and displays decreased opening. Mild mitral valve stenosis. severe pulmonary hypertension., EF: 60% * monitor intake and output * Patient has acute renal failure unable to start ARB/ОЛЕГ * Patient's blood pressure is normotensive w/o beta-vania * Start Crestor 5mg POqHS * Used to be on Cardizem prior hospitalization but off * Daily Weights Status: Acute (7) Anemia Assessment and Plan: * Heme-onc (Dr. Martinez) on board-->help appreciated * Discussed with PMD: Dr. Winkler-->patient has had workup including GI workup in 2017 in regards to anemia * Thought to be chronic secondary to kidney disease; anemia of critical disease * Continue home meds Ferrous sulfate 325 mg daily * s/p 1 unit of PRBC on 12/25 7.2 * 12/25 stool occult blood: negative * Prior hospitalizations included in patient's chart; awaiting copy of report of GI workup Status: Chronic (8) Atrial fibrillation Assessment and Plan: * Cardiology (Dr. Little) covering for Dr. Lynch's patients * Continue home meds: Amiodarone 200 mg daily, Cardizem 240 mg daily * Patient is not on anticoagulation secondary to anemia * CHADS: 4 (DM, Age, HTN, CHF) * HASBLED:2 (Age and Renal Disease) Status: Acute (9) HTN (hypertension) Assessment and Plan: * Monitor vital signs * Patient is on dialysis secondary to MARIA EUGENIA secondary to Multiple Myeloma Status: Chronic (10) Leukocytosis Assessment and Plan: * In the ED, order for dose of Zosyn and Vancomycin on 12/25 * Strep, legionella: negative and mycoplasma IgM: negative * Patient recently at the hospital within 90 days-->consideration for possible hospital acquired pneumonia * Patient does not meet sepsis critera (04/19: leukocytosis) * Start Zosyn 2.25 gr IV Q8H (active since 12/25/16) and Doxcycline 100mg IV Q 12hours (active since 12/25/16) * Blood Culture (12/25/16): no growth after 4 days X2 * Urine culture (12/25/16): <1000 * Procalcitonin low * f/u blood cultures (12/29): No growth after 24 hours X2 * Start on Solumedrol 40mg IV Q 8 hours per pulmonary (active since 12/27/16) Status: Acute (11) History of COPD (not pulm fibrosis) Assessment and Plan: * Consult: Dr Kessler (pulmonary fibrosis) on board * continue home meds: Pulmicort Flexhaler 90 mcg INH RQ12hr * Start on Solumedrol 40mg IV Q 8 hours per pulmonary (active since 12/27/16) Status: Chronic (12) History of Gastritis Assessment and Plan: * Pepcid 20mg PO daily Status: Chronic (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, managed as type 2 Assessment and Plan: * Continue home meds: Glipizide 10 mg daily * daily Accuchecks QAC and HS * [id number]: 6.1 Status: Chronic (14) Hypothyroidism Status: Chronic * TSH: 4.84 * Levothyroxine 75mcg/fay Status: Chronic (15) Hepatitis Assessment and Plan: * RUQ pain will f/u Amylase, lipase which are normal * LFTs are normal Status: Chronic (16) History of back pain Assessment and Plan: * held Magnesium oxide 400 mg BID; Tramadol-Acetaminophen 32.5-325 mg 2 tablets Q6hr * On Lidoderm patch * likely secondary to lytic lesion likely secondary to Multiple Myeloma Status: Acute (17) Lower extremity pain Assessment and Plan: * Held Magnesium oxide 400 mg BID; Tramadol-Acetaminophen 32.5-325 mg 2 tablets Q6hr Status: Acute (18) Prophylactic measure Assessment and Plan: * DVT: SCDs b/l; heparin 5000 units subq12 * GI: Pepcid 20mg PO daily * Monitor intake and output * Daily Weight * PT/OT eval Status: Acute
--- NOTE | 2016-12-31 22:07 | CP.PCM.PN ---
Subjective - Date & Time of Evaluation Date of Evaluation: 12/31/16 Time of Evaluation: 17:20 - Subjective Subjective: Patien seen and evaluated Still has dyspnea on minimal exertion. Denies fever and cough Physical Exam - Constitutional Appears: In Acute Distress, Chronically Ill - Head Exam Head Exam: NORMAL INSPECTION - Eye Exam Eye Exam: EOMI, PERRL - ENT Exam ENT Exam: Mucous Membranes Dry - Respiratory Exam Respiratory Exam: Decreased Breath Sounds - Cardiovascular Exam Cardiovascular Exam: Tachycardia, +S1, +S2 - GI/Abdominal Exam GI & Abdominal Exam: Distended, Soft Additional comments: obese habitus nontender no guarding no rebound observed - Extremities Exam Additional comments: no edema, no cyanosis, no clubbing b/l LE - Neurological Exam Neurological Exam: Alert, Awake, Oriented x3 - Psychiatric Exam Psychiatric exam: Normal Affect, Normal Mood - Skin Skin Exam: Dry, Intact, Normal Color, Warm Objective - Vital Signs/Intake and Output Vital Signs (last 24 hours): Temp Pulse Resp BP Pulse Ox 98.1 F 85 16 119/55 L 98 12/31/16 20:00 12/31/16 19:00 12/31/16 19:00 12/31/16 18:35 12/31/16 19:00 Intake and Output: 12/31/16 01/01/17 18:59 06:59 Intake Total 470 50 Balance 470 50 - Medications Medications: Current Medications Famotidine (Pepcid) 20 mg PO DAILY [facility] Last Admin: 12/31/16 09:00 Dose: 20 mg Ferrous Sulfate (Feosol) 325 mg PO DAILY [facility] Last Admin: 12/31/16 09:00 Dose: 325 mg Glipizide (Glucotrol) 10 mg PO DAILY [facility] Last Admin: 12/31/16 09:00 Dose: 10 mg Heparin Sodium (Porcine) (Heparin) 5,000 units SC Q12 [facility] Last Admin: 12/31/16 21:01 Dose: 5,000 units Piperacillin Sod/Tazobactam Sod (Zosyn 2.25 Gm Iv Premix) 2.25 gm in 50 mls @ 100 mls/hr IVPB Q8H [facility] Last Admin: 12/31/16 15:52 Dose: 100 mls/hr Doxycycline Hyclate 100 mg/ (Sodium Chloride) 100 mls @ 100 mls/hr IVPB Q12H [facility] Last Admin: 12/31/16 20:47 Dose: 100 mls/hr Insulin Human Regular (Novolin R) 0 unit SC ACHS [facility]IB[facility] PRN Reason: Protocol Last Admin: 12/31/16 17:00 Dose: 6 unit Levothyroxine Sodium (Synthroid) 75 mcg PO DAILY@0630 [facility] Last Admin: 12/31/16 06:07 Dose: 75 mcg Lidocaine (Lidoderm) 1 ea TD DAILY [facility] Last Admin: 12/31/16 12:07 Dose: 1 ea Methylprednisolone (Solu-Medrol) 40 mg IVP Q8H [facility] Last Admin: 12/31/16 16:59 Dose: 40 mg Rosuvastatin Calcium (Crestor) 5 mg PO HS [facility] Last Admin: 12/31/16 21:01 Dose: 5 mg Sevelamer Carbonate (Renvela) 1,600 mg PO TIDCC [facility] Last Admin: 12/31/16 17:00 Dose: 1,600 mg - Labs Labs: 12/31/16 06:19 12/31/16 06:19 PT 13.1 SECONDS (9.7-12.2) H 12/26/16 08:05 INR 1.2 12/26/16 08:05 APTT 39 SECONDS (21-34) H 12/26/16 08:05 Assessment and Plan - Assessment and Plan (Free Text) Assessment: (1) Acute Respiratory Distress Assessment and Plan: * Patient has history of COPD per pulmonary * Patient requires max oxygen support per ICU * CT Chest (12/31): interval worsening of nonspecific ground glass opacities in the lungs since the previous exam. Interstitial septal thickening and crazy paving appearance of the lungs. Mild cardiomegaly. Small left pleural effusion. Diffuse lytic bone lesion consistent with multiple myeloma * Solumedrol 40mg IV Q 8 hours * Will need BAL/Bronch to see if patient has invasive myeloma to the lung-->ICU has discussed with patient's pulm (2) Fluid Overload Assessment and Plan: * ProBNP today: 29405 * Contributing factors: acute on chronic kidney disease and hx of diastolic congestive heart failure * Vascular Surgery: Dr. Ontiveros-->notified by emergency room; for emergent dialysis access * Nephrology: Dr Bill on board-->acute on chronic kidney insufficiency, hypercalcemia; emergent dialysis * Chest Xray (12/25/16): prominent diffuse increased interstital lung markings throughout both lungs suggestive for edema and/or infiltrate * Chest Xray (12/27/16): persistent prominent diffuse increased consolidative changes throughtout both lungs with coarse reticular interstital airspce opacities. More focal confluent airspace consolidative changes in the right right midlung zone and left lung base with small left plueral effusion. Cardiomegaly * Echocardiogram (12/27/16) moderate left ventricular diastolic dysfunction. left atrium is moderately dilated. right atrium is mildly dilated, mitral annular calcification is moderate. mitral velve is calcified and displays decreased opening. Mild mitral valve stenosis. severe pulmonary hypertension., EF: 60% * Monitor intake output * Daily weights * 12/27/16: 2nd dialysis session today--> 2 liters removed * 12/28/16: Spoke with Dr. Bill-->dialysis for tomorrow; pending chest xray read * 12/29/16: stable heterogenous infiltrates are seen diffusely bilaterally and are unchanged compared to 12/28/16 prominent cardiac silhouteete is stable. Fractures at the left 3rd, 6th, and 9th ribs identified at latter stage of healing * 12/30/16: Had dialysis today * 12/31/16: Dialysis not improving lung exam (3) Acute kidney injury superimposed on chronic kidney disease Assessment and Plan: * Nephrology Dr. Bill consulted-->help appreciated * Hepatitis panel: Negative * HIV: negative * Mycoplasma Igm: negative * Legionella; Negative * Vascular Surgery: Dr. 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 * Recommended for SPEP, IPEP--->pending * free light chain lambda: 567764.7 * free light chain kappa: 17.5 * 24 hr urine UPEP-->resulting--> 2108 (high) * urine IPE * beta2 microglobulin * LDH: 522 * Prior SPEP: (12/02/16): M Adarsh migrating in the gamma globulin region; 12/25 : M spike * immuonfixation: pending * BUN/Cr elevated today: 90/7.7 * 12/25 Urinanalysis: +leuk esterase, 2+ protein, + Wbc and + RBC * urine culture: no growth (<1000 CFU/ml) * Ct Abdomen/Pelvis (12/25/16): No evidence of nephrolithiasis or hydronephrosis , 1,5 cm exophyitc high attentuation lesion at the mid to lower pole of right kidney. possibility of renal cell carcinoma should be excluded. 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 Airspace consolidation at left lobe associated with small pleural fussion suspicious for pneumonia * Patient to have dialysis today thru Sunday, 01/01 Status: Acute (4) Possible Multiple Myeloma Assessment and Plan: * Criteria: anemia, renal insufficiency, hypercalcemia * Nephrology Dr. Bill consulted-->help appreciated * Vascular Surgery: Dr. Ontiveros-->help appreciated * Surgery consulted and will place permacath with plan for HD today * Heme-Oncology: Dr Martinez-->help appreciated * Possible patient has light chain multiple myeloma * free light chain lambda: 036734.7 * free light chain kappa: 17.5 * 24 hr urine UPEP--> 2108 (high) * urine IPE--->--->pending * beta2 microglobulin--->--->pending * LDH: 522 * Prior SPEP: (12/02/16): M Adarsh migrating in the gamma globulin region; 12/25 : M spike * 12/27: discussed with Dr. Martinez, patient's for bone marrow biopsy for Sunday and possible start chemotherapy. * Echocardiogram (12/27/16) moderate left ventricular diastolic dysfunction. left atrium is moderately dilated. right atrium is mildly dilated, mitral annular calcification is moderate. mitral valve is calcified and displays decreased opening. Mild mitral valve stenosis. severe pulmonary hypertension., EF: 60% * Monitor intake output * BUN/Cr elevated today: 90/7.7 * 12/25 Urinanalysis: +leuk esterase, 2+ protein, + Wbc and + RBC * urine culture: no growth (<1000 CFU/ml) * Ct Abdomen/Pelvis (12/25/16): No evidence of nephrolithiasis or hydronephrosis , 1,5 cm exophyitc high attentuation lesion at the mid to lower pole of right kidney. possibility of renal cell carcnioma should be excluded. 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 Airspace consolidation at left lobe associated with small pleural fussion suspicious for pneumonia * Chest xray w rib (12/29/16): stable heterogenous infiltrates are seen diffusely bilaterally and are unchanged compared to 12/28/16 prominent cardiac silhouette is stable. Fractures at the left 3rd, 6th, and 9th ribs identified at latter stage of healing * 12/30: Heme-onc unable to do bone marrow biopsy because of patient's shortness of breathe; reports does not need bone marrow biopsy at this time; recommend for port a cath * 12/31: given possibility of invasive myeloma to the lung; may need bronch/bal for diagnosis Status: Acute (5) Hypercalcemia Assessment and Plan: * Likely secondary to Multiple Myeloma * Nephrology (Dr. Bill) on board-->help appreciated * Heme-onc (Dr. Martinez) on board--->help appreciated * Bone marrow biopsy today at 130PM * PTH related Protein: pending * PTH intact: 14 * Vitamin D: 66.6 * ОЛЕГ: 28 * Ionized Calcium: 6.7 * Possible patient has light chain multiple myeloma * Recommended for SPEP, IPEP--->pending * free light chain lambda: 441817.7 * free light chain kappa: 17.5 * 24 hr urine UPEP--> 2108 (high) * urine IPE--->--->pending * beta2 microglobulin--->--->pending * LDH: 522 * Prior SPEP: (12/02/16): M Adarsh migrating in the gamma globulin region; 12/25 : M spike Status: Acute (6) Possible CHF exacerbation Assessment and Plan: * History of diastolic congestive heart failure * Cardiology (Dr. Little) on consult; covering for Dr. Lynch's patients * ProBNP today: 25083 * Echocardiogram (12/27/16) moderate left ventricular diastolic dysfunction. left atrium is moderately dilated. right atrium is mildly dilated, mitral annular calcification is moderate. mitral valve is calcified and displays decreased opening. Mild mitral valve stenosis. severe pulmonary hypertension., EF: 60% * monitor intake and output * Patient has acute renal failure unable to start ARB/ОЛЕГ * Patient's blood pressure is normotensive w/o beta-vania * Start Crestor 5mg POqHS * Used to be on Cardizem prior hospitalization but off * Daily Weights Status: Acute (7) Anemia Assessment and Plan: * Heme-onc (Dr. Martinez) on board-->help appreciated * Discussed with PMD: Dr. Winkler-->patient has had workup including GI workup in 2017 in regards to anemia * Thought to be chronic secondary to kidney disease; anemia of critical disease * Continue home meds Ferrous sulfate 325 mg daily * s/p 1 unit of PRBC on 12/25 7.2 * 12/25 stool occult blood: negative * Prior hospitalizations included in patient's chart; awaiting copy of report of GI workup Status: Chronic (8) Atrial fibrillation Assessment and Plan: * Cardiology (Dr. Little) covering for Dr. Lynch's patients * Continue home meds: Amiodarone 200 mg daily, Cardizem 240 mg daily * Patient is not on anticoagulation secondary to anemia * CHADS: 4 (DM, Age, HTN, CHF) * HASBLED:2 (Age and Renal Disease) Status: Acute (9) HTN (hypertension) Assessment and Plan: * Monitor vital signs * Patient is on dialysis secondary to MARIA EUGENIA secondary to Multiple Myeloma Status: Chronic (10) Leukocytosis Assessment and Plan: * In the ED, order for dose of Zosyn and Vancomycin on 12/25 * Strep, legionella: negative and mycoplasma IgM: negative * Patient recently at the hospital within 90 days-->consideration for possible hospital acquired pneumonia * Patient does not meet sepsis critera (04/19: leukocytosis) * Start Zosyn 2.25 gr IV Q8H (active since 12/25/16) and Doxcycline 100mg IV Q 12hours (active since 12/25/16) * Blood Culture (12/25/16): no growth after 4 days X2 * Urine culture (12/25/16): <1000 * Procalcitonin low * f/u blood cultures (12/29): No growth after 24 hours X2 * Start on Solumedrol 40mg IV Q 8 hours per pulmonary (active since 12/27/16) Status: Acute (11) History of COPD (not pulm fibrosis) Assessment and Plan: * Consult: Dr Kessler (pulmonary fibrosis) on board * continue home meds: Pulmicort Flexhaler 90 mcg INH RQ12hr * Start on Solumedrol 40mg IV Q 8 hours per pulmonary (active since 12/27/16) Status: Chronic (12) History of Gastritis Assessment and Plan: * Pepcid 20mg PO daily Status: Chronic (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, managed as type 2 Assessment and Plan: * Continue home meds: Glipizide 10 mg daily * daily Accuchecks QAC and HS * Qclrisjknzs0f: 6.1 Status: Chronic (14) Hypothyroidism Status: Chronic * TSH: 4.84 * Levothyroxine 75mcg/fay Status: Chronic (15) Hepatitis Assessment and Plan: * RUQ pain will f/u Amylase, lipase which are normal * LFTs are normal Status: Chronic (16) History of back pain Assessment and Plan: * held Magnesium oxide 400 mg BID; Tramadol-Acetaminophen 32.5-325 mg 2 tablets Q6hr * On Lidoderm patch * likely secondary to lytic lesion likely secondary to Multiple Myeloma Status: Acute (17) Lower extremity pain Assessment and Plan: * Held Magnesium oxide 400 mg BID; Tramadol-Acetaminophen 32.5-325 mg 2 tablets Q6hr Status: Acute (18) Prophylactic measure Assessment and Plan: * DVT: SCDs b/l; heparin 5000 units subq12 * GI: Pepcid 20mg PO daily * Monitor intake and output * Daily Weight * PT/OT eval Status: Acute
[2017-01-01] MEDS: MethylPREDNISolone 40 mg Vial IVP SCH ×3 (01:24→17:07)
--- NOTE | 2017-01-01 04:57 | CON ---
INFECTIOUS DISEASE CONSULTATION REQUESTED BY: Dr. Samaniego. HISTORY OF PRESENT ILLNESS: This patient is a 81-year-old female. She was admitted on 12/25, today is 12/31. I was asked to see by the critical care attending. This patient is a 81-year-old. She has a history of CHF, atrial fibrillation, hypertension, diabetes mellitus, anemia, hypothyroidism, gastritis, hepatitis C, which has been treated. She presented with shortness of breath, shoulder pain, and right flank pain. She is being monitored in the ICU and also was having some nausea and vomiting which was chronic in nature at present and there was sputum which she was coughing with dark colored and she was also having cloudy urine and she has had recent hospitalization in [facility], where she stayed 3 to 4 days and I am asked to evaluate her to see and evaluate antibiotic further. She does say she is bringing out some dark sputum and she complains of pain on deep inspiration on her left under the chest . She has new dialysis catheter which is new for her and she is being worked up and has been found to have multiple myeloma, which is quite new, the family says. She does have history of atrial fibrillation, CHF, anemia, hypertension, diabetes mellitus, hypothyroidism, gastritis and hepatitis C. ALLERGIES: SHE IS NOT ALLERGIC TO ANY MEDICINES. SURGICAL HISTORY: Significant for laparoscopic enteroscopy in 2017 with gastritis and hiatal hernia, but no bleeding. She also had breast lipoma removal. SOCIAL HISTORY: She is a former smoker, smoked 5 cigarettes per day for 5 years, quit 40 years ago. Denies alcohol or drug abuse. FAMILY HISTORY: Significant for mother having stroke in 80s, sister has colon cancer at 81, and her brother has pancreatic cancer at 85. She is 81. MEDICATIONS AT HOME: She was on ferrous sulfate, levothyroxine, budesonide steroid inhaler, amiodarone, diltiazem, glipizide, Ellipta, omeprazole, furosemide, Lidoderm, magnesium, tramadol and acetaminophen. She follows with Dr. Hairston. MEDICATIONS AT PRESENT: She is on doxycycline, Pepcid, ferrous sulfate, Glucotrol, heparin subcu, Novolin R, Synthroid, Lidoderm, and on Solu-Medrol 40 q.8, on Zosyn q.8, Crestor, is on Renvela. Also she is on renal medications and she is on dialysis. REVIEW OF SYSTEMS: She denied any headaches. She was sitting in the chair. She was on high-flow oxygen. She is not running fever, but she has been on dialysis after catheter was placed by the vascular surgeon. She has no ear, nose problems. She does have shortness of breath. She is on oxygen. She did complain of dark sputum; abdominal pain, left upper quadrant; dysuria when she came in, but right now, she is not complaining of that. PAST MEDICAL HISTORY: Reviewed and will be tagged to my consult. PHYSICAL EXAMINATION VITAL SIGNS: I find her temperature is 98.1 now, so she is afebrile as such. Blood pressure is 103/47, respirations are 19, and pulse of 66. HEENT: Head is atraumatic and normocephalic. She appears chronically ill. Pupils are reacting to light. Eye movements are unremarkable. NECK: Supple. JVP is flat. She has a hemodialysis catheter in the right side, is not bothering her. LUNGS: Few crackles on the left base, and coarse breath sounds on the left side, otherwise clear. HEART: S1 and S2 is irregularly regular. ABDOMEN: Soft and nontender. No guarding, no rigidity present. EXTREMITIES: No edema, clubbing or cyanosis at this time. LABORATORY DATA: Labs are noted. Labs show white is 17, hemoglobin 6.4, hematocrit 19.5, and platelet count is 127. So, she is really anemic and must need transfusion. Sodium is 138, potassium 4.3, chloride is 96, CO2 is 20, BUN is 69, creatinine is 2.9. She is in renal insufficiency. Her cultures blood, urine are all negative so far. There is no sputum culture, we will order that and she had a chest CT today, which showed interval worsening, ground glass opacity in the previous exam and correlate clinically, possible pulmonary hemorrhage, pulmonary alveolar proteinosis or interstitial pneumonitis. So, we will need to check with the pulmonary. We will get a sputum, I think Zosyn and doxycycline is the good coverage for now. Also based on the sputum, if anything grows at this time, she needs blood transfusion most probably and diuresis by renal as she has multiple myeloma and her white count may be related to the steroid that are on at this time. We will follow. IMP: Patient is in resp failure with chf,copd and renal failure and being worked up for multiple myeloma hence will cover with the antibiotics just ordered Pau Thakkar MD MTDD
[2017-01-01] MEDS: Piperacill/Tazo 2.25gm in Dex 2.25 GM/50 ML BAG IVPB SCH ×3 (06:01→22:12)
[2017-01-01] MEDS: Levothyroxine 75 MCG TAB PO SCH (06:01)
[2017-01-01 06:10] LABS: HEMATOCRIT 19.4 % (34.0-47.0); MEAN CELL VOLUME 95.6 fL (81.0-99.0); MEAN CORPUSCULAR HEMOGLOBIN 31.1 pg (27.0-31.0); MEAN CORPUSCULAR HGB CONC 32.6 g/dL (33.0-37.0); MEAN PLATELET VOLUME 8.3 fL (7.2-11.7); RED CELL DISTRIBUTION WIDTH 15.8 % (11.5-14.5); WHITE BLOOD COUNT 20.7 K/uL (4.8-10.8)
[2017-01-01 06:24] LABS: POTASSIUM 4.5 mmol/L (3.6-5.2)
[2017-01-01 06:27] LABS: CALCIUM 7.8 mg/dl (8.6-10.4)
[2017-01-01] MEDS: (Novolin R) Insulin Human Regular 100 units/ml vial SC SCH ×4 (07:30→22:19)
--- NOTE | 2017-01-01 08:04 | PN ---
DATE: SUBJECTIVE: Clinically, the patient is short of breath even at rest on 100% oxygenation, in moderate distress at present time. REVIEW OF SYSTEMS: Little difficult to be obtained because the patient is short of breath, but other than shortness of breath, denies any other complaint. PHYSICAL EXAMINATION: GENERAL: The patient is awake, alert, oriented, quite, pleasant in moderate distress. VITAL SIGNS: Blood pressure 122/49, pulse is 73, respirations 22. HEENT: Eyes, conjunctivae pale. Sclera white. Pupil reacting to light. Ears, nose, and throat are normal. LUNGS: Bilaterally scattered rales. HEART: S1 and S2 regular. Tachycardia. ABDOMEN: Soft and nondistended. Obese. No hepatosplenomegaly. CENTRAL NERVOUS SYSTEM: No gross motor or sensory deficit. LYMPH NODE: No cervical, axillary or inguinal lymph nodes palpable. LABORATORY DATA: WBC 30,300, hemoglobin 7, hematocrit 21.9, platelet count 267,000. BUN is 95, creatinine is 6.2, calcium is 11.5. Free lambda light chain is 10,021. IMPRESSION: 1. Free lambda light chain multiple myeloma. 2. Anemia secondary to renal failure secondary to the light chain protein. 3. Leukocytosis and neutrophilia, most likely secondary to the steroids or infection. PLAN: Originally was to do a bone marrow aspirate and biopsy with flow cytometry and cytogenetics. This is just more for the prognostic indicators and to get a definite characters of the multiple myeloma; however, in view of the one of the treatment is going to be . Treatment is not going to change. The patient is going to receive Velcade with Cytoxan low dose 500 mg and Decadron. The patient is already on steroids. I might not give a Decadron at present time. I can treat the patient without doing bone marrow aspirate and biopsy. At present time, the patient is in significant distress, so I would try to avoid doing bone marrow aspirate and biopsy. Discussed with the rehabilitation services aide, Dr. Junior. We will discuss with Dr. Kessler. Discuss with nurse and the patient. The patient has a poor access to give a treatment. I would like to get Port-A-Cath done. I have called and left message with Dr. Weston Dey, the Vascular Surgeon. Overall, prognosis is guarded. Thank you for letting me participate in the care of this patient and I will followup with the patient with you. Iggy Martinez MD
--- NOTE | 2017-01-01 09:34 | CP.PCM.PN ---
Subjective - Date & Time of Evaluation Date of Evaluation: 01/01/17 Time of Evaluation: 09:30 - Subjective Subjective: Medical Attending Note: Patient seen and examined. Patient continues to have persistent dyspnea on exertion. Patient reports not improved. Patient is on IV steroinds and high flow. Patient denies headache, denies chest pain, denies abdominal pain, reports she has having bowel movement, and reports urine output is less. Patient reporting low back pain and hurts when she breathes. Patient has healing rib fractures. Patient is about to have dialysis this morning. Objective - Vital Signs/Intake and Output Vital Signs (last 24 hours): Temp Pulse Resp BP Pulse Ox 97.8 F 63 14 105/40 L 97 01/01/17 04:00 01/01/17 06:00 01/01/17 07:43 01/01/17 05:51 01/01/17 06:00 Intake and Output: 01/01/17 01/01/17 06:59 18:59 Intake Total 300 Balance 300 - Medications Medications: Current Medications Famotidine (Pepcid) 20 mg PO DAILY [facility] Last Admin: 12/31/16 09:00 Dose: 20 mg Ferrous Sulfate (Feosol) 325 mg PO DAILY [facility] Last Admin: 12/31/16 09:00 Dose: 325 mg Glipizide (Glucotrol) 10 mg PO DAILY [facility] Last Admin: 01/01/17 09:31 Dose: Not Given Heparin Sodium (Porcine) (Heparin) 5,000 units SC Q12 [facility] Last Admin: 12/31/16 21:01 Dose: 5,000 units Piperacillin Sod/Tazobactam Sod (Zosyn 2.25 Gm Iv Premix) 2.25 gm in 50 mls @ 100 mls/hr IVPB Q8H [facility] Last Admin: 01/01/17 06:01 Dose: 100 mls/hr Doxycycline Hyclate 100 mg/ (Sodium Chloride) 100 mls @ 100 mls/hr IVPB Q12H [facility] Last Admin: 12/31/16 20:47 Dose: 100 mls/hr Insulin Human Regular (Novolin R) 0 unit SC ACHS [facility] PRN Reason: Protocol Last Admin: 01/01/17 07:30 Dose: Not Given Levothyroxine Sodium (Synthroid) 75 mcg PO DAILY@0630 [facility] Last Admin: 01/01/17 06:01 Dose: 75 mcg Lidocaine (Lidoderm) 1 ea TD DAILY [facility] Last Admin: 12/31/16 12:07 Dose: 1 ea Methylprednisolone (Solu-Medrol) 40 mg IVP Q8H [facility] Last Admin: 01/01/17 01:24 Dose: 40 mg Rosuvastatin Calcium (Crestor) 5 mg PO HS [facility] Last Admin: 12/31/16 21:01 Dose: 5 mg Sevelamer Carbonate (Renvela) 1,600 mg PO TIDCC [facility] Last Admin: 01/01/17 08:30 Dose: Not Given - Labs Labs: 01/01/17 06:00 01/01/17 06:00 PT 13.1 SECONDS (9.7-12.2) H 12/26/16 08:05 INR 1.2 12/26/16 08:05 APTT 27 SECONDS (21-34) 01/01/17 06:00 - Constitutional Appears: In Acute Distress, Chronically Ill - Head Exam Head Exam: NORMAL INSPECTION - Eye Exam Eye Exam: EOMI - ENT Exam ENT Exam: Mucous Membranes Dry - Respiratory Exam Respiratory Exam: Decreased Breath Sounds, Respiratory Distress. absent: Rales , Rhonchi, Stridor - Cardiovascular Exam Cardiovascular Exam: RRR, +S1, +S2 - GI/Abdominal Exam GI & Abdominal Exam: Soft, Normal Bowel Sounds. absent: Distended, Firm, Guarding, Rigid, Tenderness, Rebound - Extremities Exam Extremities Exam: Normal Capillary Refill. absent: Pedal Edema, Tenderness - Neurological Exam Neurological Exam: Alert, Awake, Oriented x3 - Psychiatric Exam Psychiatric exam: Normal Affect, Normal Mood - Skin Skin Exam: Dry, Intact, Normal Color, Warm Assessment and Plan - Assessment and Plan (Free Text) Assessment: (1) Acute Respiratory Distress Assessment and Plan: * Patient has history of COPD per pulmonary * Patient requires max oxygen support per ICU * CT Chest (12/31): interval worsening of nonspecific ground glass opacities in the lungs since the previous exam. Interstitial septal thickening and crazy paving appearance of the lungs. Mild cardiomegaly. Small left pleural effusion. Diffuse lytic bone lesion consistent with multiple myeloma * Solumedrol 40mg IV Q 8 hours * Will need BAL/Bronch to see if patient has invasive myeloma to the lung-->ICU has discussed with patient's pulm 12/31 (2) Fluid Overload Assessment and Plan: * ProBNP today: 43076 * Contributing factors: acute on chronic kidney disease and hx of diastolic congestive heart failure * Vascular Surgery: Dr. Ontiveros-->notified by emergency room; for emergent dialysis access * Nephrology: Dr Bill on board-->acute on chronic kidney insufficiency, hypercalcemia; emergent dialysis * Chest Xray (12/25/16): prominent diffuse increased interstital lung markings throughout both lungs suggestive for edema and/or infiltrate * Chest Xray (12/27/16): persistent prominent diffuse increased consolidative changes throughtout both lungs with coarse reticular interstital airspce opacities. More focal confluent airspace consolidative changes in the right right midlung zone and left lung base with small left plueral effusion. Cardiomegaly * Echocardiogram (12/27/16) moderate left ventricular diastolic dysfunction. left atrium is moderately dilated. right atrium is mildly dilated, mitral annular calcification is moderate. mitral velve is calcified and displays decreased opening. Mild mitral valve stenosis. severe pulmonary hypertension., EF: 60% * Monitor intake output * Daily weights * 12/27/16: 2nd dialysis session today--> 2 liters removed * 12/28/16: Spoke with Dr. Bill-->dialysis for tomorrow; pending chest xray read * 12/29/16: stable heterogenous infiltrates are seen diffusely bilaterally and are unchanged compared to 12/28/16 prominent cardiac silhouteete is stable. Fractures at the left 3rd, 6th, and 9th ribs identified at latter stage of healing * 12/30/16: Had dialysis today * 12/31/16: Dialysis not improving lung exam (3) Acute kidney injury superimposed on chronic kidney disease Assessment and Plan: * Nephrology Dr. Bill consulted-->help appreciated * Hepatitis panel: Negative * HIV: negative * Mycoplasma Igm: negative * Legionella; Negative * Vascular Surgery: Dr. 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 * Recommended for SPEP, IPEP--->pending * free light chain lambda: 983984.7 * free light chain kappa: 17.5 * 24 hr urine UPEP-->resulting--> 2108 (high) * urine IPE * beta2 microglobulin * LDH: 522 * Prior SPEP: (12/02/16): M Adarsh migrating in the gamma globulin region; 12/25 : M spike * immuonfixation: pending * BUN/Cr elevated today: 90/7.7 * 12/25 Urinanalysis: +leuk esterase, 2+ protein, + Wbc and + RBC * urine culture: no growth (<1000 CFU/ml) * Ct Abdomen/Pelvis (12/25/16): No evidence of nephrolithiasis or hydronephrosis , 1,5 cm exophyitc high attentuation lesion at the mid to lower pole of right kidney. possibility of renal cell carcinoma should be excluded. 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 Airspace consolidation at left lobe associated with small pleural fussion suspicious for pneumonia * Patient to have dialysis today thru Sunday, 01/01 Status: Acute (4) Possible Multiple Myeloma Assessment and Plan: * Criteria: anemia, renal insufficiency, hypercalcemia * Nephrology Dr. Bill consulted-->help appreciated * Vascular Surgery: Dr. Ontiveros-->help appreciated * Surgery consulted and will place permacath with plan for HD today * Heme-Oncology: Dr Martinez-->help appreciated * Possible patient has light chain multiple myeloma * free light chain lambda: 115837.7 * free light chain kappa: 17.5 * 24 hr urine UPEP--> 2108 (high) * urine IPE--->--->pending * beta2 microglobulin--->--->pending * LDH: 522 * Prior SPEP: (12/02/16): M Adarsh migrating in the gamma globulin region; 12/25 : M spike * 12/27: discussed with Dr. Martinez, patient's for bone marrow biopsy for Sunday and possible start chemotherapy. * Echocardiogram (12/27/16) moderate left ventricular diastolic dysfunction. left atrium is moderately dilated. right atrium is mildly dilated, mitral annular calcification is moderate. mitral valve is calcified and displays decreased opening. Mild mitral valve stenosis. severe pulmonary hypertension., EF: 60% * Monitor intake output * BUN/Cr elevated today: 90/7.7 * 12/25 Urinanalysis: +leuk esterase, 2+ protein, + Wbc and + RBC * urine culture: no growth (<1000 CFU/ml) * Ct Abdomen/Pelvis (12/25/16): No evidence of nephrolithiasis or hydronephrosis , 1,5 cm exophyitc high attentuation lesion at the mid to lower pole of right kidney. possibility of renal cell carcnioma should be excluded. 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 Airspace consolidation at left lobe associated with small pleural fussion suspicious for pneumonia * Chest xray w rib (12/29/16): stable heterogenous infiltrates are seen diffusely bilaterally and are unchanged compared to 12/28/16 prominent cardiac silhouette is stable. Fractures at the left 3rd, 6th, and 9th ribs identified at latter stage of healing * 12/30: Heme-onc unable to do bone marrow biopsy because of patient's shortness of breathe; reports does not need bone marrow biopsy at this time; recommend for port a cath * 12/31: given possibility of invasive myeloma to the lung; may need bronch/bal for diagnosis Status: Acute (5) Hypercalcemia Assessment and Plan: * Likely secondary to Multiple Myeloma * Nephrology (Dr. Bill) on board-->help appreciated * Heme-onc (Dr. Martinez) on board--->help appreciated * Bone marrow biopsy today at 130PM * PTH related Protein: pending * PTH intact: 14 * Vitamin D: 66.6 * ОЛЕГ: 28 * Ionized Calcium: 6.7 * Possible patient has light chain multiple myeloma * Recommended for SPEP, IPEP--->pending * free light chain lambda: 614856.7 * free light chain kappa: 17.5 * 24 hr urine UPEP--> 2108 (high) * urine IPE--->--->pending * beta2 microglobulin--->--->pending * LDH: 522 * Prior SPEP: (12/02/16): M Adarsh migrating in the gamma globulin region; 12/25 : M spike Status: Acute (6) Possible CHF exacerbation Assessment and Plan: * History of diastolic congestive heart failure * Cardiology (Dr. Little) on consult; covering for Dr. Lynch's patients * ProBNP today: 15788 * Echocardiogram (12/27/16) moderate left ventricular diastolic dysfunction. left atrium is moderately dilated. right atrium is mildly dilated, mitral annular calcification is moderate. mitral valve is calcified and displays decreased opening. Mild mitral valve stenosis. severe pulmonary hypertension., EF: 60% * monitor intake and output * Patient has acute renal failure unable to start ARB/ОЛЕГ * Patient's blood pressure is normotensive w/o beta-vania * Start Crestor 5mg POqHS * Used to be on Cardizem prior hospitalization but off * Daily Weights Status: Acute (7) Anemia Assessment and Plan: * Heme-onc (Dr. Martinez) on board-->help appreciated * Discussed with PMD: Dr. Winkler-->patient has had workup including GI workup in 2017 in regards to anemia * Thought to be chronic secondary to kidney disease; anemia of critical disease * Continue home meds Ferrous sulfate 325 mg daily * s/p 1 unit of PRBC on 12/25 7.2 * 12/25 stool occult blood: negative * Prior hospitalizations included in patient's chart; awaiting copy of report of GI workup Status: Chronic (8) Atrial fibrillation Assessment and Plan: * Cardiology (Dr. Little) covering for Dr. Lynch's patients * Continue home meds: Amiodarone 200 mg daily, Cardizem 240 mg daily * Patient is not on anticoagulation secondary to anemia * CHADS: 4 (DM, Age, HTN, CHF) * HASBLED:2 (Age and Renal Disease) Status: Acute (9) HTN (hypertension) Assessment and Plan: * Monitor vital signs * Patient is on dialysis secondary to MARIA EUGENIA secondary to Multiple Myeloma Status: Chronic (10) Leukocytosis Assessment and Plan: * In the ED, order for dose of Zosyn and Vancomycin on 12/25 * Strep, legionella: negative and mycoplasma IgM: negative * Patient recently at the hospital within 90 days-->consideration for possible hospital acquired pneumonia * Patient does not meet sepsis critera (04/19: leukocytosis) * Start Zosyn 2.25 gr IV Q8H (active since 12/25/16) and Doxcycline 100mg IV Q 12hours (active since 12/25/16) * Blood Culture (12/25/16): no growth after 4 days X2 * Urine culture (12/25/16): <1000 * Procalcitonin low * f/u blood cultures (12/29): No growth after 24 hours X2 * Start on Solumedrol 40mg IV Q 8 hours per pulmonary (active since 12/27/16) Status: Acute (11) History of COPD (not pulm fibrosis) Assessment and Plan: * Consult: Dr Kessler (pulmonary fibrosis) on board * continue home meds: Pulmicort Flexhaler 90 mcg INH RQ12hr * Start on Solumedrol 40mg IV Q 8 hours per pulmonary (active since 12/27/16) Status: Chronic (12) History of Gastritis Assessment and Plan: * Pepcid 20mg PO daily Status: Chronic (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, managed as type 2 Assessment and Plan: * Continue home meds: Glipizide 10 mg daily * daily Accuchecks QAC and HS * [id number]: 6.1 Status: Chronic (14) Hypothyroidism Status: Chronic * TSH: 4.84 * Levothyroxine 75mcg/fay Status: Chronic (15) Hepatitis Assessment and Plan: * RUQ pain will f/u Amylase, lipase which are normal * LFTs are normal Status: Chronic (16) History of back pain Assessment and Plan: * held Magnesium oxide 400 mg BID; Tramadol-Acetaminophen 32.5-325 mg 2 tablets Q6hr * On Lidoderm patch * likely secondary to lytic lesion likely secondary to Multiple Myeloma Status: Acute (17) Lower extremity pain Assessment and Plan: * Held Magnesium oxide 400 mg BID; Tramadol-Acetaminophen 32.5-325 mg 2 tablets Q6hr Status: Acute (18) Prophylactic measure Assessment and Plan: * DVT: SCDs b/l; heparin 5000 units subq12 * GI: Pepcid 20mg PO daily * Monitor intake and output * Daily Weight * PT/OT eval Status: Acute
[2017-01-01] MEDS: Lidocaine 5% Patch TD SCH (10:33)
--- NOTE | 2017-01-01 11:28 | CP.CCUPN ---
CCU Subjective - Physician Review Subjective (Free Text): Patient seen and examined at bedside. Patient alert, AAOx3, able to follow commands. Patient continues to have labored breathing on nasal cannula, she refuses to use BiPAP. Patient currently denies any pain or discomfort. Denies chest pain, abdominal pain, fever, palpitations, nausea, vomiting. 01/01/17 15:25 CCU Objective - Vital Signs / Intake & Output Vital Signs (Last 4 hours): Vital Signs Temp Pulse Pulse Resp BP BP Pulse Ox 01/01/17 11:25 16 01/01/17 11:00 69 69 15 116/55 L 120/62 97 01/01/17 10:40 67 18 123/51 L 96 01/01/17 10:20 69 16 123/49 L 95 01/01/17 10:00 98 F 68 68 20 125/41 L 125/41 L 95 01/01/17 09:00 72 20 151/89 H 100 01/01/17 08:00 98 F 71 18 132/72 100 01/01/17 07:43 14 Intake and Output (Last 8hrs): Intake & Output 12/31/16 01/01/17 01/01/17 22:59 06:59 14:59 Intake Total 350 100 0 Balance 350 100 0 Weight 182 lb Intake: Intake, IV Amount 150 100 Right Wrist 150 100 Oral 200 0 0 Other: # Bowel Movements 1 - Physical Exam Head: Positive for: Atraumatic, Normocephalic Pupils: Positive for: PERRL Extroacular Muscles: Positive for: EOMI Mouth: Positive for: Moist Mucous Membranes Respiratory/Chest: Positive for: Rhonchi Cardiovascular: Positive for: Regular Rate and Rhythm, Normal S1, S2 Abdomen: Positive for: Normal Bowel Sounds. Negative for: Tenderness, Distention Upper Extremity: Negative for: Edema Lower Extremity: Negative for: Edema Neurological: Positive for: CN II-XII Intact, Speech Normal Psychiatric: Positive for: Alert, Oriented x 3, Normal Insight - Medications Active Medications: Active Medications Generic Name Dose Route Start Last Admin Trade Name Freq PRN Reason Stop Dose Admin Famotidine 20 mg 12/27/16 10:00 12/31/16 09:00 Pepcid PO 20 mg DAILY [facility] Administration Ferrous Sulfate 325 mg 12/26/16 10:00 12/31/16 09:00 Feosol PO 325 mg DAILY [facility] Administration Glipizide 10 mg 12/27/16 10:00 01/01/17 09:31 Glucotrol PO Not Given DAILY [facility] Heparin Sodium (Porcine) 5,000 units 12/30/16 10:00 12/31/16 21:01 Heparin SC 5,000 units Q12 [facility] Administration Piperacillin Sod/Tazobactam Sod 2.25 gm in 50 mls @ 100 mls/hr 12/25/16 23:00 01/01/17 06:01 Zosyn 2.25 Gm Iv Premix IVPB 100 mls/hr Q8H [facility] Administration Doxycycline Hyclate 100 mg/ 100 mls @ 100 mls/hr 12/25/16 21:00 12/31/16 20: 47 Sodium Chloride IVPB 100 mls/hr Q12H [facility] Administration Insulin Human Regular 0 unit 12/31/16 10:15 01/01/17 07:30 Novolin R SC Not Given ACHS [facility] Protocol Levothyroxine Sodium 75 mcg 12/26/16 06:30 01/01/17 06:01 Synthroid PO 75 mcg DAILY@0630 [facility] Administration Lidocaine 1 ea 12/30/16 21:00 12/31/16 12:07 Lidoderm TD 1 ea DAILY [facility] Administration Methylprednisolone 40 mg 12/27/16 17:45 01/01/17 01:24 Solu-Medrol IVP 40 mg Q8H [facility] Administration Rosuvastatin Calcium 5 mg 12/30/16 22:00 12/31/16 21:01 Crestor PO 5 mg HS [facility] Administration Sevelamer Carbonate 1,600 mg 12/30/16 08:00 01/01/17 08:30 Renvela PO Not Given TIDCC [facility] - Patient Studies Lab Studies: Microbiology Studies 12/29/16 20:30 Blood Culture - Preliminary Blood NO GROWTH AFTER 48 HOURS 12/29/16 20:00 Blood Culture - Preliminary Blood NO GROWTH AFTER 48 HOURS Lab Studies 01/01/17 01/01/17 01/01/17 Range/Units 08:14 06:00 06:00 WBC (4.8-10.8) K/uL RBC (3.80-5.20) Mil/uL Hgb (11.0-16.0) g/dL Hct (34.0-47.0) % MCV (81.0-99.0) fL MCH (27.0-31.0) pg MCHC (33.0-37.0) g/dL RDW (11.5-14.5) % Plt Count (130-400) K/uL MPV (7.2-11.7) fL APTT 27 (21-34) SECONDS Sodium 134 (132-148) mmol/L Potassium 4.5 (3.6-5.2) mmol/L Chloride 92 L (98-107) mmol/L Carbon Dioxide 24 (22-30) mmol/L Anion Gap 23 H (10-20) BUN 106 H* D (7-17) mg/dL Creatinine 4.9 H (0.7-1.2) MG/DL Est GFR ( Amer) 10 Est GFR (Non-Af Amer) 9 POC Glucose (mg/dL) 293 H (65-110) mg/dL Random Glucose 228 H (65-105) mg/dL Calcium 7.8 L (8.6-10.4) mg/dl 01/01/17 12/31/16 12/31/16 Range/Units 06:00 21:39 16:16 WBC 20.7 H (4.8-10.8) K/uL RBC 2.03 L (3.80-5.20) Mil/uL Hgb 6.3 L* (11.0-16.0) g/dL Hct 19.4 L (34.0-47.0) % MCV 95.6 (81.0-99.0) fL MCH 31.1 H (27.0-31.0) pg MCHC 32.6 L (33.0-37.0) g/dL RDW 15.8 H (11.5-14.5) % Plt Count 200 (130-400) K/uL MPV 8.3 (7.2-11.7) fL APTT (21-34) SECONDS Sodium (132-148) mmol/L Potassium (3.6-5.2) mmol/L Chloride (98-107) mmol/L Carbon Dioxide (22-30) mmol/L Anion Gap (10-20) BUN (7-17) mg/dL Creatinine (0.7-1.2) MG/DL Est GFR ( Amer) Est GFR (Non-Af Amer) POC Glucose (mg/dL) 201 H 292 H (65-110) mg/dL Random Glucose (65-105) mg/dL Calcium (8.6-10.4) mg/dl 12/31/16 Range/Units 11:44 WBC (4.8-10.8) K/uL RBC (3.80-5.20) Mil/uL Hgb (11.0-16.0) g/dL Hct (34.0-47.0) % MCV (81.0-99.0) fL MCH (27.0-31.0) pg MCHC (33.0-37.0) g/dL RDW (11.5-14.5) % Plt Count (130-400) K/uL MPV (7.2-11.7) fL APTT (21-34) SECONDS Sodium (132-148) mmol/L Potassium (3.6-5.2) mmol/L Chloride (98-107) mmol/L Carbon Dioxide (22-30) mmol/L Anion Gap (10-20) BUN (7-17) mg/dL Creatinine (0.7-1.2) MG/DL Est GFR ( Amer) Est GFR (Non-Af Amer) POC Glucose (mg/dL) 324 H (65-110) mg/dL Random Glucose (65-105) mg/dL Calcium (8.6-10.4) mg/dl Laboratory Results - last 24 hr 12/31/16 12/31/16 12/31/16 11:44 16:16 21:39 WBC RBC Hgb Hct MCV MCH MCHC RDW Plt Count MPV APTT Sodium Potassium Chloride Carbon Dioxide Anion Gap BUN Creatinine Est GFR ( Amer) Est GFR (Non-Af Amer) POC Glucose (mg/dL) 324 H 292 H 201 H Random Glucose Calcium 01/01/17 01/01/17 01/01/17 06:00 06:00 06:00 WBC 20.7 H RBC 2.03 L Hgb 6.3 L* Hct 19.4 L MCV 95.6 MCH 31.1 H MCHC 32.6 L RDW 15.8 H Plt Count 200 MPV 8.3 APTT 27 Sodium 134 Potassium 4.5 Chloride 92 L Carbon Dioxide 24 Anion Gap 23 H BUN 106 H* D Creatinine 4.9 H Est GFR ( Amer) 10 Est GFR (Non-Af Amer) 9 POC Glucose (mg/dL) Random Glucose 228 H Calcium 7.8 L 01/01/17 08:14 WBC RBC Hgb Hct MCV MCH MCHC RDW Plt Count MPV APTT Sodium Potassium Chloride Carbon Dioxide Anion Gap BUN Creatinine Est GFR ( Amer) Est GFR (Non-Af Amer) POC Glucose (mg/dL) 293 H Random Glucose Calcium Fingerstick Blood Sugar Results: 201 Review of Systems - Constitutional Constitutional: absent: Fever, Chills, Sweats - Cardiovascular Cardiovascular: UNREMARKABLE - Respiratory Respiratory: Dyspnea - Gastrointestinal Gastrointestinal: UNREMARKABLE - Genitourinary Genitourinary: UNREMARKABLE - Musculoskeletal Musculoskeletal: UNREMARKABLE Critical Care Progress Note - Nutrition Nutrition: Nutrition Category Date Time Status NPO Diet [DIET] Diets 01/01/17 Breakfast Active Assessment/Plan (1) CHF exacerbation Current Visit: No Status: Acute (2) Acute kidney injury superimposed on chronic kidney disease Current Visit: No Status: Acute (3) Anemia Current Visit: No Status: Chronic (4) Atrial fibrillation with controlled ventricular response Current Visit: No Status: Acute (5) HTN (hypertension) Current Visit: No Status: Chronic (6) Leucocytosis Current Visit: No Status: Acute (7) History of asthma Current Visit: Yes Status: Acute (8) Gastritis Current Visit: No Status: Acute (9) Diabetes 1.5, 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 Today 01/01/17: Patient Hgb supplemented with 2 units pRBCs during HD today. Was scheduled for PortaCath today, but will reschedule for Sunday per surgery team. Neuro: Alert and oriented 3 Pulm: Acute hypoxic respiratory failure secondary to interstitial pneumonitis, seen on CT chest. COPD continue Methylprednisolone IV every 8h. Patient may need bronch with BAL/biopsy, consulted Dr. Kessler. Patient may have pulmonary invasive Myeloma (rare, chemotx will help), vs infectious etiology. - f/u LDH CV: Acute on chronic decompensated diastolic heart failure, fluid removal via dialysis, NOT IMPROVING PULMONARY function/radiographic appearance. Heme: Worsening anemia Transfused with 2 uniut pRBCs today, multifactorial with critical illness, multiple myeloma. Will monitor. Multiple myeloma, intended treatment with Velcade and Cytoxan and Decadron. Bone marrow biopsy planned once patient is stable. Hem/Onc following. Renal: acute renal failure requiring Daily dialysis for fluid removal. Endo: DM type II, regular insulin sliding scale for coverage, Glucotrol. Hypothyroidism, continue levothyroxine. GI: Diabetic diet ID: Possible pneumonia, continue antibiotics (active since 12/25): doxycycline and Zosyn. DVT proph - heparin subcutaneous GI proph - Pepcid erik for strict I/O's during acute illness Code status - full code
--- NOTE | 2017-01-01 12:14 | CP.PCM.PN ---
Subjective - Date & Time of Evaluation Date of Evaluation: 01/01/17 Time of Evaluation: 12:11 - Subjective Subjective: On dialysis now- trying to UF 3000ml Tolerating treratment well Hg 6.3- will transfuse if prbcs available with HD Still awaiting BM Still very dyspneic, feels ill Objective - Vital Signs/Intake and Output Vital Signs (last 24 hours): Temp Pulse Resp BP Pulse Ox 98.1 F 74 21 108/55 L 94 L 01/01/17 12:00 01/01/17 12:00 01/01/17 12:00 01/01/17 12:00 01/01/17 12:00 Intake and Output: 01/01/17 01/01/17 06:59 18:59 Intake Total 300 0 Balance 300 0 - Medications Medications: Current Medications Famotidine (Pepcid) 20 mg PO DAILY [facility] Last Admin: 12/31/16 09:00 Dose: 20 mg Ferrous Sulfate (Feosol) 325 mg PO DAILY [facility] Last Admin: 12/31/16 09:00 Dose: 325 mg Glipizide (Glucotrol) 10 mg PO DAILY [facility] Last Admin: 01/01/17 09:31 Dose: Not Given Heparin Sodium (Porcine) (Heparin) 5,000 units SC Q12 [facility] Last Admin: 12/31/16 21:01 Dose: 5,000 units Piperacillin Sod/Tazobactam Sod (Zosyn 2.25 Gm Iv Premix) 2.25 gm in 50 mls @ 100 mls/hr IVPB Q8H [facility] Last Admin: 01/01/17 06:01 Dose: 100 mls/hr Doxycycline Hyclate 100 mg/ (Sodium Chloride) 100 mls @ 100 mls/hr IVPB Q12H [facility] Last Admin: 12/31/16 20:47 Dose: 100 mls/hr Insulin Human Regular (Novolin R) 0 unit SC ACHS [facility] PRN Reason: Protocol Last Admin: 01/01/17 07:30 Dose: Not Given Levothyroxine Sodium (Synthroid) 75 mcg PO DAILY@0630 [facility] Last Admin: 01/01/17 06:01 Dose: 75 mcg Lidocaine (Lidoderm) 1 ea TD DAILY [facility] Last Admin: 12/31/16 12:07 Dose: 1 ea Methylprednisolone (Solu-Medrol) 40 mg IVP Q8H [facility] Last Admin: 01/01/17 01:24 Dose: 40 mg Rosuvastatin Calcium (Crestor) 5 mg PO HS [facility] Last Admin: 12/31/16 21:01 Dose: 5 mg Sevelamer Carbonate (Renvela) 1,600 mg PO TIDCC [facility] Last Admin: 01/01/17 08:30 Dose: Not Given - Labs Labs: 01/01/17 06:00 01/01/17 06:00 PT 13.1 SECONDS (9.7-12.2) H 12/26/16 08:05 INR 1.2 12/26/16 08:05 APTT 27 SECONDS (21-34) 01/01/17 06:00 - Constitutional Appears: In Acute Distress, Chronically Ill - Head Exam Head Exam: ATRAUMATIC, NORMAL INSPECTION - Eye Exam Eye Exam: EOMI, Normal appearance - Neck Exam Neck Exam: Normal Inspection. absent: Tenderness - Cardiovascular Exam Cardiovascular Exam: REGULAR RHYTHM, +S1 - GI/Abdominal Exam GI & Abdominal Exam: Tenderness. absent: Soft - Neurological Exam Neurological Exam: Alert, CN II-XII Intact - Psychiatric Exam Psychiatric exam: Anxious - Skin Skin Exam: Dry, Warm Assessment and Plan (1) MARIA EUGENIA (acute kidney injury) Status: Acute (2) CHF (congestive heart failure) Status: Acute (3) Hypercalcemia Status: Acute - Assessment and Plan (Free Text) Plan: Await BM bx Continue aggressive UF for adequate fluid removal for severe fluid overload follow up camille
--- NOTE | 2017-01-01 14:33 | CP.PCM.PN ---
Subjective - Date & Time of Evaluation Date of Evaluation: 01/01/17 Time of Evaluation: 09:30 - Subjective Subjective: patient seen and examined. Getting hemodialysis Awake and responsive Remains hypoxic and short of breath CAT scan of the chest noted For transfusion of packed RBCs Objective - Vital Signs/Intake and Output Vital Signs (last 24 hours): Temp Pulse Resp BP Pulse Ox 98.2 F 80 19 135/63 95 01/01/17 14:00 01/01/17 14:00 01/01/17 14:00 01/01/17 14:00 01/01/17 14:00 Intake and Output: 01/01/17 01/01/17 06:59 18:59 Intake Total 300 0 Balance 300 0 - Medications Medications: Current Medications Famotidine (Pepcid) 20 mg PO DAILY [facility] Last Admin: 12/31/16 09:00 Dose: 20 mg Ferrous Sulfate (Feosol) 325 mg PO DAILY [facility] Last Admin: 12/31/16 09:00 Dose: 325 mg Glipizide (Glucotrol) 10 mg PO DAILY [facility] Last Admin: 01/01/17 09:31 Dose: Not Given Heparin Sodium (Porcine) (Heparin) 5,000 units SC Q12 [facility] Last Admin: 12/31/16 21:01 Dose: 5,000 units Piperacillin Sod/Tazobactam Sod (Zosyn 2.25 Gm Iv Premix) 2.25 gm in 50 mls @ 100 mls/hr IVPB Q8H [facility] Last Admin: 01/01/17 14:23 Dose: 100 mls/hr Doxycycline Hyclate 100 mg/ (Sodium Chloride) 100 mls @ 100 mls/hr IVPB Q12H [facility] Last Admin: 12/31/16 20:47 Dose: 100 mls/hr Insulin Human Regular (Novolin R) 0 unit SC ACHS [facility] PRN Reason: Protocol Last Admin: 01/01/17 12:00 Dose: Not Given Levothyroxine Sodium (Synthroid) 75 mcg PO DAILY@0630 [facility] Last Admin: 01/01/17 06:01 Dose: 75 mcg Lidocaine (Lidoderm) 1 ea TD DAILY [facility] Last Admin: 12/31/16 12:07 Dose: 1 ea Methylprednisolone (Solu-Medrol) 40 mg IVP Q8H [facility] Last Admin: 01/01/17 01:24 Dose: 40 mg Rosuvastatin Calcium (Crestor) 5 mg PO HS [facility] Last Admin: 12/31/16 21:01 Dose: 5 mg Sevelamer Carbonate (Renvela) 1,600 mg PO TIDCC [facility] Last Admin: 01/01/17 08:30 Dose: Not Given - Labs Labs: 01/01/17 06:00 01/01/17 06:00 PT 13.1 SECONDS (9.7-12.2) H 12/26/16 08:05 INR 1.2 12/26/16 08:05 APTT 27 SECONDS (21-34) 01/01/17 06:00 - Head Exam Head Exam: ATRAUMATIC, NORMOCEPHALIC - Neck Exam Neck Exam: Normal Inspection - Respiratory Exam Respiratory Exam: Decreased Breath Sounds - Cardiovascular Exam Cardiovascular Exam: REGULAR RHYTHM - GI/Abdominal Exam GI & Abdominal Exam: Soft, Normal Bowel Sounds - Extremities Exam Extremities Exam: Pedal Edema - Neurological Exam Neurological Exam: Awake Assessment and Plan (1) COPD (chronic obstructive pulmonary disease) Assessment & Plan: continue hemodialysis of IV steroids and nebulizer treatment Remains hypoxemic High risk for bronchoscopy and biopsy/BAL because of severe hypoxemia Continue high flow oxygen Bone marrow biopsy Status: Acute (2) Pulmonary hypertension Status: Acute (3) Anemia Status: Acute (4) CHF (congestive heart failure) Status: Acute (5) Acute kidney injury Status: Acute
--- NOTE | 2017-01-01 21:32 | CP.PCM.PN ---
Subjective - Date & Time of Evaluation Date of Evaluation: 01/01/17 Time of Evaluation: 04:00 - Subjective Subjective: dictated Objective - Vital Signs/Intake and Output Vital Signs (last 24 hours): Temp Pulse Resp BP Pulse Ox 97.6 F 64 15 99/38 L 94 L 01/01/17 20:00 01/01/17 21:23 01/01/17 21:23 01/01/17 21:24 01/01/17 21:23 Intake and Output: 01/01/17 01/02/17 18:59 06:59 Intake Total 175 20 Balance 175 20 - Medications Medications: Current Medications Famotidine (Pepcid) 20 mg PO DAILY [facility] Last Admin: 01/01/17 14:32 Dose: 20 mg Ferrous Sulfate (Feosol) 325 mg PO DAILY [facility] Last Admin: 01/01/17 14:32 Dose: 325 mg Glipizide (Glucotrol) 10 mg PO DAILY [facility] Last Admin: 01/01/17 09:31 Dose: Not Given Heparin Sodium (Porcine) (Heparin) 5,000 units SC Q12 [facility] Last Admin: 12/31/16 21:01 Dose: 5,000 units Piperacillin Sod/Tazobactam Sod (Zosyn 2.25 Gm Iv Premix) 2.25 gm in 50 mls @ 100 mls/hr IVPB Q8H [facility] Last Admin: 01/01/17 14:23 Dose: 100 mls/hr Doxycycline Hyclate 100 mg/ (Sodium Chloride) 100 mls @ 100 mls/hr IVPB Q12H [facility] Last Admin: 01/01/17 20:27 Dose: 100 mls/hr Insulin Human Regular (Novolin R) 0 unit SC ACHS [facility] PRN Reason: Protocol Last Admin: 01/01/17 17:09 Dose: 6 unit Levothyroxine Sodium (Synthroid) 75 mcg PO DAILY@0630 [facility] Last Admin: 01/01/17 06:01 Dose: 75 mcg Lidocaine (Lidoderm) 1 ea TD DAILY [facility] Last Admin: 01/01/17 10:33 Dose: Not Given Methylprednisolone (Solu-Medrol) 40 mg IVP Q8H [facility] Last Admin: 01/01/17 17:07 Dose: 40 mg Rosuvastatin Calcium (Crestor) 5 mg PO HS [facility] Last Admin: 12/31/16 21:01 Dose: 5 mg Sevelamer Carbonate (Renvela) 1,600 mg PO TIDCC [facility] Last Admin: 01/01/17 17:07 Dose: 1,600 mg - Labs Labs: 01/01/17 06:00 01/01/17 06:00 PT 13.1 SECONDS (9.7-12.2) H 12/26/16 08:05 INR 1.2 12/26/16 08:05 APTT 27 SECONDS (21-34) 01/01/17 06:00
--- NOTE | 2017-01-01 21:39 | CP.PCM.PN ---
Subjective - Date & Time of Evaluation Date of Evaluation: 01/01/17 Time of Evaluation: 09:15 - Subjective Subjective: Patient seen and evaluated Still has dyspnea Physical Exam - Constitutional Appears: Dyspnea - Head Exam Head Exam: ATRAUMATIC, NORMAL INSPECTION, NORMOCEPHALIC - Eye Exam Eye Exam: EOMI, Normal appearance, PERRL - ENT Exam ENT Exam: Mucous Membranes Moist - Neck Exam Neck exam: Positive for: Normal Inspection. Negative for: Thyromegaly - Respiratory Exam Respiratory Exam: Decreased Breath Sounds. absent: Accessory Muscle Use - Cardiovascular Exam Cardiovascular Exam: REGULAR RHYTHM, +S1, +S2. absent: JVD - GI/Abdominal Exam GI & Abdominal Exam: Hypoactive Bowel Sounds, Tenderness - Extremities Exam Extremities exam: Positive for: pedal edema, pedal pulses present - Neurological Exam Neurological exam: Alert, CN II-XII Intact, Oriented x3 - Psychiatric Exam Psychiatric exam: Normal Affect, Normal Mood - Skin Skin Exam: Dry, Intact, Normal Color, Warm Objective - Vital Signs/Intake and Output Vital Signs (last 24 hours): Temp Pulse Resp BP Pulse Ox 97.6 F 64 15 99/38 L 94 L 01/01/17 20:00 01/01/17 21:23 01/01/17 21:23 01/01/17 21:24 01/01/17 21:23 Intake and Output: 01/01/17 01/02/17 18:59 06:59 Intake Total 175 20 Balance 175 20 - Medications Medications: Current Medications Famotidine (Pepcid) 20 mg PO DAILY [facility] Last Admin: 01/01/17 14:32 Dose: 20 mg Ferrous Sulfate (Feosol) 325 mg PO DAILY [facility] Last Admin: 01/01/17 14:32 Dose: 325 mg Glipizide (Glucotrol) 10 mg PO DAILY [facility] Last Admin: 01/01/17 09:31 Dose: Not Given Heparin Sodium (Porcine) (Heparin) 5,000 units SC Q12 [facility] Last Admin: 12/31/16 21:01 Dose: 5,000 units Piperacillin Sod/Tazobactam Sod (Zosyn 2.25 Gm Iv Premix) 2.25 gm in 50 mls @ 100 mls/hr IVPB Q8H [facility] Last Admin: 01/01/17 14:23 Dose: 100 mls/hr Doxycycline Hyclate 100 mg/ (Sodium Chloride) 100 mls @ 100 mls/hr IVPB Q12H [facility] Last Admin: 01/01/17 20:27 Dose: 100 mls/hr Insulin Human Regular (Novolin R) 0 unit SC ACHS [facility] PRN Reason: Protocol Last Admin: 01/01/17 17:09 Dose: 6 unit Levothyroxine Sodium (Synthroid) 75 mcg PO DAILY@0630 [facility] Last Admin: 01/01/17 06:01 Dose: 75 mcg Lidocaine (Lidoderm) 1 ea TD DAILY [facility] Last Admin: 01/01/17 10:33 Dose: Not Given Methylprednisolone (Solu-Medrol) 40 mg IVP Q8H [facility] Last Admin: 01/01/17 17:07 Dose: 40 mg Rosuvastatin Calcium (Crestor) 5 mg PO HS [facility] Last Admin: 12/31/16 21:01 Dose: 5 mg Sevelamer Carbonate (Renvela) 1,600 mg PO TIDCC [facility] Last Admin: 01/01/17 17:07 Dose: 1,600 mg - Labs Labs: 01/01/17 06:00 01/01/17 06:00 PT 13.1 SECONDS (9.7-12.2) H 12/26/16 08:05 INR 1.2 12/26/16 08:05 APTT 27 SECONDS (21-34) 01/01/17 06:00 Assessment and Plan - Assessment and Plan (Free Text) Assessment: (1) Atrial fibrillation Assessment and Plan: * Continue home meds: Amiodarone 200 mg daily, Cardizem 240 mg daily * Patient is not on anticoagulation secondary to anemia * CHADS: 4 (DM, Age, HTN, CHF) * HASBLED:2 (Age and Renal Disease) Status: Acute Not on AC due to low Hgb Check stool guiac Start Heparin IV once Hgb above 9 and guiac negative (2) Acute kidney injury superimposed on chronic kidney disease Assessment and Plan: * Nephrology Dr. Bill consulted-->help appreciated * Vascular Surgery: Dr. Ontiveros-->help appreciated * Surgery consulted; tunneled dialysis catheter placed 12/25; f * Heme-Oncology: Dr Martinez-->help appreciated * Possible patient has light chain multiple myeloma * Recommended for SPEP, IPEP, free light chain lambda, free light chain kappa, 24 hr urine UPEP, urine IPEP, beta2 microglobulin, and LDH-->pending * Prior SPEP: (12/02/16): M Adarsh migrating in the gamma globulin region * BUN/Cr elevated today: 90/7.7 * 12/25 Urinanalysis: +leuk esterase, 2+ protein, + Wbc and + RBC * f/u urine culture-->pending * Ct Abdomen/Pelvis (12/25/16): No evidence of nephrolithiasis or hydronephrosis , 1,5 cm exophyitc high attentuation lesion at the mid to lower pole of right kidney. possibility of renal cell carcnioma should be excluded. 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 Airspace consolidation at left lobe associated with small pleural fussion suspicious for pneumonia Status: Acute (3) Possible Multiple Myeloma Assessment and Plan: * Criteria: anemia, renal insufficiency, hypercalcemia * Nephrology Dr. Bill consulted-->help appreciated * Vascular Surgery: Dr. Ontiveros-->help appreciated * Surgery consulted and will place permacath with plan for HD today * Heme-Oncology: Dr Martinez-->help appreciated * Possible patient has light chain multiple myeloma * Recommended for SPEP, IPEP, free light chain lambda, free light chain kappa, 24 hr urine UPEP, urine IPEP, beta2 microglobulin, and LDH-->pending * BUN/Cr elevated today: 90/7.7 * 12/25 Urinanalysis: +leuk esterase, 2+ protein, + Wbc and + RBC * f/u urine culture-->pending * Ct Abdomen/Pelvis (12/25/16): No evidence of nephrolithiasis or hydronephrosis , 1,5 cm exophyitc high attentuation lesion at the mid to lower pole of right kidney. possibility of renal cell carcnioma should be excluded. 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 Airspace consolidation at left lobe associated with small pleural fussion suspicious for pneumoni Status: Acute (4) Diastolic CHF Assessment and Plan: * History of diastolic congestive heart failure * Cardiology (Dr. Little) on consult; covering for Dr. Lynch's patients * ProBNP today: 29364 * 06/28/16 Echo showed EF of 83% with borderline concentric LVH. Mild-moderate mitral regurgitation * 12/01 EKG: normal, NSR * monitor intake and output * Daily Weights Status: Acute Prior cath: Non obstructive (5) Anemia Assessment and Plan: * Heme-onc (Dr. Martinez) on board-->help appreciated * Discussed with PMD: Dr. Winkler-->patient has had workup including GI workup in 2017 in regards to anemia * Thought to be chronic secondary to kidney disease * Continue home meds Ferrous sulfate 325 mg daily * s/p 1 unit of PRBC on 12/25 7.2 * 12/25 stool occult blood: negative * Prior hospitalizations included in patient's chart; awaiting copy of report of GI workup Status: Chronic (6) HTN (hypertension) Assessment and Plan: * Monitor vital signs * Restart Amiodarone 200mg PO daily and Cardizem 240mg PO daily Status: Chronic (7) Leukocytosis Assessment and Plan: * In the ED, order for dose of Zosyn and Vancomycin on 12/25 * Difficult to discern if patient has pneumonia given she is also appears fluid overload * Post dialysis chest xray 12/26 * Strep, legionella: negative and mycoplasma IgM: negative * Patient recently at the hospital within 90 days-->consideration for possible hospital acquired pneumonia * Patient does not meet sepsis critera (04/19: leukocytosis) * Start Zosyn 2.25 gr IV Q8H (active since 12/25/16) and Doxcycline 100mg IV Q 12hours (active since 12/25/16) * Discussed with ED nurse, blood and urine cultures were collected-->pending Status: Acute (8) History of asthma Assessment and Plan: * continue home meds: Pulmicort Flexhaler 90 mcg INH RQ12hr * f/u sputum culture-->pending Status: Chronic (9) History of Gastritis Assessment and Plan: * Pepcid 20mg PO daily Status: Chronic (10) Diabetes 1.5, managed as type 2 Assessment and Plan: * Continue home meds: Glipizide 10 mg daily * daily Accuchecks QAC and HS * [id number] Status: Chronic (11) Hypothyroidism Status: Chronic * Order TSH in AM-->pending Status: Chronic (12) Hepatitis Assessment and Plan: * RUQ pain will f/u Amylase, lipase which are normal * LFTs are normal Status: Chronic (13) History of back pain Assessment and Plan: * held Magnesium oxide 400 mg BID; Tramadol-Acetaminophen 32.5-325 mg 2 tablets Q6hr Status: Acute (14) Lower extremity pain Assessment and Plan: * Held Magnesium oxide 400 mg BID; Tramadol-Acetaminophen 32.5-325 mg 2 tablets Q6hr Status: Acute (15) Prophylactic measure Assessment and Plan: * DVT: SCD * GI: Omeprazole 20 mg daily * Chemical anticoagulation contraindicated secondary anemia * Monitor intake and output * Daily Weight Status: Acute
[2017-01-02] MEDS: MethylPREDNISolone 40 mg Vial IVP SCH ×3 (01:49→16:58)
--- NOTE | 2017-01-02 01:51 | PN ---
SUBJECTIVE: The patient got dialysis today, and she was feeling slightly better. She still has pain on deep inspiration on the left side, and she states she received transfusion and had dialysis and is feeling slightly better at this time, but still remains with shortness of breath. PHYSICAL EXAMINATION GENERAL: She appears ill. VITAL SIGNS: Show her temperature is 97.8, pulse 73, blood pressure 124/53, respirations are 20. HEENT: Head is atraumatic, normocephalic. On oxygen, though it is not high flow today. NECK: Supple. HEART: S1, S2 regular. LUNGS: Mostly clear, occasional wheeze. ABDOMEN: Soft, nontender. No guarding, no rigidity present. EXTREMITIES: Edema has decreased. LABORATORY DATA: Today, labs are noted. Labs show white count is 20.7 today, hemoglobin 6.3, hematocrit 19.4, and platelet count is 200, I am not sure, but this is from this morning, so may be a transfusion after this. I do not see any repeated CBC today. Sodium is 135, potassium 4.5, chloride is 92, CO2 is 24, anion gap is 23, BUN is 106, and creatinine is 4.9. The patient also had LDH level done which was 1522, which is high, but she has multiple myeloma also. She is on Zosyn at this time. The white count is increasing, but she remains on steroids, it may be one component, but she has been requiring high flow oxygen, so at this time, will follow with pulmonary and with renal, and maybe with fluid overload reduction, her shortness of breath may improve, and her lung findings may improve. Pau Thakkar MD
[2017-01-02] MEDS: Levothyroxine 75 MCG TAB PO SCH (06:20)
[2017-01-02] MEDS: Piperacill/Tazo 2.25gm in Dex 2.25 GM/50 ML BAG IVPB SCH ×3 (06:21→22:15)
[2017-01-02 06:42] LABS: POTASSIUM 4.5 mmol/L (3.6-5.2)
[2017-01-02 06:44] LABS: ALB/GLOB RATIO 1.5 (1.0-2.1); BILIRUBIN,TOTAL 1.1 mg/dL (0.2-1.3); TOTAL PROTEIN 5.4 g/dL (6.3-8.3)
[2017-01-02 06:45] LABS: CALCIUM 7.6 mg/dl (8.6-10.4); PHOSPHOROUS 7.1 mg/dL (2.5-4.5)
[2017-01-02 06:48] LABS: BASO % 0.1 % (0.0-2.0); HEMATOCRIT 29.8 % (34.0-47.0); LYMPH # 0.7 K/uL (1.0-4.3); LYMPH % 3.3 % (20.0-40.0); MEAN CORPUSCULAR HEMOGLOBIN 30.7 pg (27.0-31.0); MEAN CORPUSCULAR HGB CONC 33.4 g/dL (33.0-37.0); MEAN PLATELET VOLUME 8.5 fL (7.2-11.7); MONO # 0.5 K/uL (0.0-0.8); MONO % 2.4 % (0.0-10.0); NRBC % 0.1 % (0.0-2.0); PLATELET COUNT 183 K/uL (130-400); RED CELL DISTRIBUTION WIDTH 16.9 % (11.5-14.5); WHITE BLOOD COUNT 20.7 K/uL (4.8-10.8)
[2017-01-02 06:50] LABS: MEAN CELL VOLUME 91.9 fL (81.0-99.0)
--- NOTE | 2017-01-02 07:28 | CP.PCM.PN ---
Subjective - Date & Time of Evaluation Date of Evaluation: 01/02/17 Time of Evaluation: 07:28 - Subjective Subjective: General Surgery Progress Note for Dr. Ontiveros Patient seen and examined at bedside. No acute event overnight. Patient refuses to use BiPAP. Patient has no complaints at this time. Denies fevers/chills, chest pain, SOB, abdominal pain, palpitations, nausea, vomiting, diarrhea. Objective - Vital Signs/Intake and Output Vital Signs (last 24 hours): Temp Pulse Resp BP Pulse Ox 97.5 F L 66 13 109/38 L 98 01/02/17 04:00 01/02/17 06:24 01/02/17 06:24 01/02/17 06:24 01/02/17 06:24 Intake and Output: 01/02/17 01/02/17 06:59 18:59 Intake Total 50 Balance 50 - Medications Medications: Current Medications Famotidine (Pepcid) 20 mg PO DAILY [facility] Last Admin: 01/01/17 14:32 Dose: 20 mg Ferrous Sulfate (Feosol) 325 mg PO DAILY [facility] Last Admin: 01/01/17 14:32 Dose: 325 mg Glipizide (Glucotrol) 10 mg PO DAILY [facility] Last Admin: 01/01/17 09:31 Dose: Not Given Heparin Sodium (Porcine) (Heparin) 5,000 units SC Q12 [facility] Last Admin: 12/31/16 21:01 Dose: 5,000 units Piperacillin Sod/Tazobactam Sod (Zosyn 2.25 Gm Iv Premix) 2.25 gm in 50 mls @ 100 mls/hr IVPB Q8H [facility] Last Admin: 01/02/17 06:21 Dose: 100 mls/hr Doxycycline Hyclate 100 mg/ (Sodium Chloride) 100 mls @ 100 mls/hr IVPB Q12H [facility] Last Admin: 01/01/17 20:27 Dose: 100 mls/hr Insulin Human Regular (Novolin R) 0 unit SC ACHS [facility] PRN Reason: Protocol Last Admin: 01/01/17 22:19 Dose: Not Given Levothyroxine Sodium (Synthroid) 75 mcg PO DAILY@0630 [facility] Last Admin: 01/02/17 06:20 Dose: 75 mcg Lidocaine (Lidoderm) 1 ea TD DAILY [facility] Last Admin: 09/18/17 10:33 Dose: Not Given Methylprednisolone (Solu-Medrol) 40 mg IVP Q8H [facility] Last Admin: 01/02/17 01:49 Dose: 40 mg Rosuvastatin Calcium (Crestor) 5 mg PO HS [facility] Last Admin: 01/01/17 22:04 Dose: 5 mg Sevelamer Carbonate (Renvela) 1,600 mg PO TIDCC [facility] Last Admin: 01/01/17 17:07 Dose: 1,600 mg - Labs Labs: 01/02/17 06:19 01/02/17 06:19 PT 13.1 SECONDS (9.7-12.2) H 12/26/16 08:05 INR 1.2 12/26/16 08:05 APTT 27 SECONDS (21-34) 01/01/17 06:00 - Constitutional Appears: No Acute Distress - Head Exam Head Exam: ATRAUMATIC, NORMOCEPHALIC - Eye Exam Eye Exam: Normal appearance - ENT Exam ENT Exam: Mucous Membranes Moist - Respiratory Exam Respiratory Exam: Rhonchi, NORMAL BREATHING PATTERN - Cardiovascular Exam Cardiovascular Exam: REGULAR RHYTHM - GI/Abdominal Exam GI & Abdominal Exam: Soft. absent: Distended, Tenderness - Extremities Exam Extremities Exam: absent: Pedal Edema - Neurological Exam Neurological Exam: Alert, Awake - Psychiatric Exam Psychiatric exam: Normal Affect, Normal Mood - Skin Skin Exam: Dry, Intact, Warm Assessment and Plan - Assessment and Plan (Free Text) Plan: 81 F with recent diagnosis of Multiple Myeloma -Plan for OR Sunday for Portacath placement -NPO past MN -Continue medical management as per ICU -Will TOPHER Loza PGY1
[2017-01-02] MEDS: (Novolin R) Insulin Human Regular 100 units/ml vial SC SCH ×4 (08:22→22:23)
[2017-01-02 08:41] LABS: NEUTROPHIL 95 % (50-75); TOTAL CELLS COUNTED 100
--- NOTE | 2017-01-02 09:02 | CP.PCM.PN ---
Subjective - Date & Time of Evaluation Date of Evaluation: 01/02/17 Time of Evaluation: 09:00 - Subjective Subjective: Hospitalist Progress Note Patient was seen and examined at 9:00 AM 01/02/17 Please see Assessment and Plans below for details Upon ROS NO chest pain SOB/Breathing is better on the HiFlow Oxygen Eating but not as much as before as she states that she gets nauseous States that she is not having bowel movements but conversation with Nurse Orin indicated that she is moving her bowels well formed 2x/day NO burning/pain with urination She feels that the Lidoderm Patch is not helping her back pain NO other complaints - Constitutional Appears: In Acute Distress, Chronically Ill - Head Exam Head Exam: NORMAL INSPECTION - Eye Exam Eye Exam: EOMI, Pupils are round, equal, reactive to light/accomodation - ENT Exam ENT Exam: Mucous Membranes Dry - Respiratory Exam Respiratory Exam: Decreased Breath Sounds, Course breath sounds throughout absent: Rales, Rhonchi, Stridor - Cardiovascular Exam Cardiovascular Exam: RRR, +S1, +S2 - GI/Abdominal Exam GI & Abdominal Exam: Soft, Normal Bowel Sounds. absent: Distended, Firm, Guarding, Rigid, Tenderness, Rebound - Extremities Exam Extremities Exam: Normal Capillary Refill. absent: Pedal Edema, Tenderness - Neurological Exam Neurological Exam: Alert, Awake, Oriented x3 - Psychiatric Exam Psychiatric exam: Normal Affect, Normal Mood - Skin Skin Exam: Dry, Intact, Normal Color, Warm Assessment and Plan - Assessment and Plan (Free Text) Assessment: note is in draft. (1) Acute Respiratory Distress Assessment and Plan: * Patient has history of COPD per pulmonary * Patient requires max oxygen support per ICU * CT Chest (12/31): interval worsening of nonspecific ground glass opacities in the lungs since the previous exam. Interstitial septal thickening and crazy paving appearance of the lungs. Mild cardiomegaly. Small left pleural effusion. Diffuse lytic bone lesion consistent with multiple myeloma * Solumedrol 40mg IV Q 8 hours * Will need BAL/Bronch to see if patient has invasive myeloma to the lung-->ICU has discussed with patient's pulm 12/31 (2) Fluid Overload Assessment and Plan: * ProBNP today: 72680 * Contributing factors: acute on chronic kidney disease and hx of diastolic congestive heart failure * Vascular Surgery: Dr. Ontiveros-->notified by emergency room; for emergent dialysis access * Nephrology: Dr Bill on board-->acute on chronic kidney insufficiency, hypercalcemia; emergent dialysis * Chest Xray (12/25/16): prominent diffuse increased interstital lung markings throughout both lungs suggestive for edema and/or infiltrate * Chest Xray (12/27/16): persistent prominent diffuse increased consolidative changes throughtout both lungs with coarse reticular interstital airspce opacities. More focal confluent airspace consolidative changes in the right right midlung zone and left lung base with small left plueral effusion. Cardiomegaly * Echocardiogram (12/27/16) moderate left ventricular diastolic dysfunction. left atrium is moderately dilated. right atrium is mildly dilated, mitral annular calcification is moderate. mitral velve is calcified and displays decreased opening. Mild mitral valve stenosis. severe pulmonary hypertension., EF: 60% * Monitor intake output * Daily weights * 12/27/16: 2nd dialysis session today--> 2 liters removed * 12/28/16: Spoke with Dr. Bill-->dialysis for tomorrow; pending chest xray read * 12/29/16: stable heterogenous infiltrates are seen diffusely bilaterally and are unchanged compared to 12/28/16 prominent cardiac silhouteete is stable. Fractures at the left 3rd, 6th, and 9th ribs identified at latter stage of healing * 12/30/16: Had dialysis today * 12/31/16: Dialysis not improving lung exam (3) Acute kidney injury superimposed on chronic kidney disease Assessment and Plan: * Nephrology Dr. Bill consulted-->help appreciated * Hepatitis panel: Negative * HIV: negative * Mycoplasma Igm: negative * Legionella; Negative * Vascular Surgery: Dr. 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 * Recommended for SPEP, IPEP--->pending * free light chain lambda: 755106.7 * free light chain kappa: 17.5 * 24 hr urine UPEP-->resulting--> 2108 (high) * urine IPE * beta2 microglobulin * LDH: 522 * Prior SPEP: (12/02/16): M Adarsh migrating in the gamma globulin region; 9/11 : M spike * immuonfixation: pending * BUN/Cr elevated today: 90/7.7 * 12/25 Urinanalysis: +leuk esterase, 2+ protein, + Wbc and + RBC * urine culture: no growth (<1000 CFU/ml) * Ct Abdomen/Pelvis (12/25/16): No evidence of nephrolithiasis or hydronephrosis , 1,5 cm exophyitc high attentuation lesion at the mid to lower pole of right kidney. possibility of renal cell carcinoma should be excluded. 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 Airspace consolidation at left lobe associated with small pleural fussion suspicious for pneumonia * HD through 01/01 Status: Acute (4) Possible Multiple Myeloma Assessment and Plan: * Criteria: anemia, renal insufficiency, hypercalcemia * Nephrology Dr. Bill consulted-->help appreciated * Vascular Surgery: Dr. 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 Martinez, patient's for bone marrow biopsy for Sunday and possible start chemotherapy. * Echocardiogram (12/27/16) moderate left ventricular diastolic dysfunction. left atrium is moderately dilated. right atrium is mildly dilated, mitral annular calcification is moderate. mitral valve is calcified and displays decreased opening. Mild mitral valve stenosis. severe pulmonary hypertension., EF: 60% * Monitor intake output * BUN/Cr elevated today: 90/7.7 * 12/25 Urinanalysis: +leuk esterase, 2+ protein, + Wbc and + RBC * urine culture: no growth (<1000 CFU/ml) * Ct Abdomen/Pelvis (12/25/16): No evidence of nephrolithiasis or hydronephrosis , 1,5 cm exophyitc high attentuation lesion at the mid to lower pole of right kidney. possibility of renal cell carcnioma should be excluded. 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 Airspace consolidation at left lobe associated with small pleural fussion suspicious for pneumonia * Chest xray w rib (12/29/16): stable heterogenous infiltrates are seen diffusely bilaterally and are unchanged compared to 12/28/16 prominent cardiac silhouette is stable. Fractures at the left 3rd, 6th, and 9th ribs identified at latter stage of healing * 12/30: Heme-onc unable to do bone marrow biopsy because of patient's shortness of breathe; reports does not need bone marrow biopsy at this time; recommend for port a cath * 12/31: given possibility of invasive myeloma to the lung; may need bronch/bal for diagnosis * 01/02: patient is for Angela Cath placement on Sunday01/04/17 Status: Acute (5) Hypercalcemia Assessment and Plan: * Likely secondary to Multiple Myeloma * Nephrology (Dr. Bill) on board-->help appreciated * Heme-onc (Dr. Martinez) on board--->help appreciated * Bone marrow biopsy not performed and awaiting performance of broanchial wash/ lavage * PTH related Protein: pending * PTH intact: 14 * Vitamin D: 66.6 * ОЛЕГ: 28 * Ionized Calcium: 6.7 * Possible patient has light chain multiple myeloma * Recommended for SPEP, IPEP--->pending * free light chain lambda: 942910.7 * free light chain kappa: 17.5 * 24 hr urine UPEP--> 2108 (high) * urine IPE--->--->pending * beta2 microglobulin--->--->pending * LDH: 522 * Prior SPEP: (12/02/16): M Adarsh migrating in the gamma globulin region; 12/25 : M spike Status: Acute (6) Possible CHF exacerbation Assessment and Plan: * History of diastolic congestive heart failure * Cardiology (Dr. Little) on consult; covering for Dr. Lynch's patients * ProBNP today: 67164 * Echocardiogram (12/27/16) moderate left ventricular diastolic dysfunction. left atrium is moderately dilated. right atrium is mildly dilated, mitral annular calcification is moderate. mitral valve is calcified and displays decreased opening. Mild mitral valve stenosis. severe pulmonary hypertension., EF: 60% * monitor intake and output * Patient has acute renal failure unable to start ARB/ОЛЕГ * Patient's blood pressure is normotensive w/o beta-vania * Start Crestor 5mg POqHS * Used to be on Cardizem prior hospitalization but off * Daily Weights Status: Acute (7) Anemia Assessment and Plan: * Heme-onc (Dr. Martinez) on board-->help appreciated * Discussed with PMD: Dr. Winkler-->patient has had workup including GI workup in 2017 in regards to anemia * Thought to be chronic secondary to kidney disease; anemia of critical disease * Continue home meds Ferrous sulfate 325 mg daily * s/p 1 unit of PRBC on 12/25 7.2 * 12/25 stool occult blood: negative * Prior hospitalizations included in patient's chart; awaiting copy of report of GI workup * 01/01: received 2 units PRBC for Hgb<6 * 01/02: Hgb improved > 9: monitor Status: Chronic (8) Atrial fibrillation Assessment and Plan: * Cardiology (Dr. Little) covering for Dr. Lynch's patients * Continue home meds: Amiodarone 200 mg daily, Cardizem 240 mg daily * Patient is not on anticoagulation secondary to anemia * CHADS: 4 (DM, Age, HTN, CHF) * HASBLED:2 (Age and Renal Disease) Status: Acute (9) HTN (hypertension) Assessment and Plan: * Monitor vital signs * Patient is on dialysis secondary to MARIA EUGENIA secondary to Multiple Myeloma Status: Chronic (10) Leukocytosis Assessment and Plan: * In the ED, order for dose of Zosyn and Vancomycin on 12/25 * Strep, legionella: negative and mycoplasma IgM: negative * Patient recently at the hospital within 90 days-->consideration for possible hospital acquired pneumonia * Patient does not meet sepsis critera (04/19: leukocytosis) * Start Zosyn 2.25 gr IV Q8H (active since 12/25/16) and Doxcycline 100mg IV Q 12hours (active since 12/25/16) * Blood Culture (12/25/16): no growth after 5 days X 2 * Urine culture (12/25/16): <1000 * Procalcitonin low * Blood Culture (12/29/16): no growth after 3 days x 2 * Start on Solumedrol 40mg IV Q 8 hours per pulmonary (active since 12/27/16) * 01/02: currently on Zozyn 2.25 gm IV Q8H and Doxycycline 100 mg IV Q12H Status: Acute (11) History of COPD (not pulm fibrosis) Assessment and Plan: * Consult: Dr Kessler (pulmonary fibrosis) on board * continue home meds: Pulmicort Flexhaler 90 mcg INH RQ12hr * Start on Solumedrol 40mg IV Q 8 hours per pulmonary (active since 12/27/16) Status: Chronic (12) History of Gastritis Assessment and Plan: * Pepcid 20mg PO daily Status: Chronic (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, managed as type 2 Assessment and Plan: * Continue home meds: Glipizide 10 mg daily * daily Accuchecks QAC and HS * Gztutnkwouo0o: 6.1 Status: Chronic (14) Hypothyroidism Status: Chronic * TSH: 4.84 * Levothyroxine 75mcg/day Status: Chronic (15) Hepatitis Assessment and Plan: * RUQ pain will f/u Amylase, lipase which are normal * LFTs are normal Status: Chronic (16) History of back pain Assessment and Plan: * held Magnesium oxide 400 mg BID * Tramadol 25 mg 1 tablet Q6hr for break through pain ordered 01/02 * On Lidoderm patch * likely secondary to lytic lesion likely secondary to Multiple Myeloma Status: Acute (17) Lower extremity pain Assessment and Plan: * Held Magnesium oxide 400 mg BID; Tramadol-Acetaminophen 32.5-325 mg 2 tablets Q6hr Status: Acute (18) Prophylactic measure Assessment and Plan: * DVT: SCDs b/l; heparin 5000 units subq12 * GI: Pepcid 20mg PO daily * Monitor intake and output * Daily Weight * PT/OT eval Status: Acute '[place] D.O. Objective - Vital Signs/Intake and Output Vital Signs (last 24 hours): Temp Pulse Resp BP Pulse Ox 98.3 F 64 13 116/46 L 99 01/02/17 08:20 01/02/17 07:24 01/02/17 07:33 01/02/17 07:24 01/02/17 07:24 Intake and Output: 01/02/17 01/02/17 06:59 18:59 Intake Total 50 50 Balance 50 50 - Medications Medications: Current Medications Famotidine (Pepcid) 20 mg PO DAILY [facility] Last Admin: 01/01/17 14:32 Dose: 20 mg Ferrous Sulfate (Feosol) 325 mg PO DAILY [facility] Last Admin: 01/01/17 14:32 Dose: 325 mg Glipizide (Glucotrol) 10 mg PO DAILY [facility] Last Admin: 01/01/17 09:31 Dose: Not Given Heparin Sodium (Porcine) (Heparin) 5,000 units SC Q12 [facility] Last Admin: 12/31/16 21:01 Dose: 5,000 units Piperacillin Sod/Tazobactam Sod (Zosyn 2.25 Gm Iv Premix) 2.25 gm in 50 mls @ 100 mls/hr IVPB Q8H [facility] Last Admin: 01/02/17 06:21 Dose: 100 mls/hr Doxycycline Hyclate 100 mg/ (Sodium Chloride) 100 mls @ 100 mls/hr IVPB Q12H [facility] Last Admin: 01/01/17 20:27 Dose: 100 mls/hr Insulin Human Regular (Novolin R) 0 unit SC ACHS [facility] PRN Reason: Protocol Last Admin: 01/02/17 08:22 Dose: 8 unit Levothyroxine Sodium (Synthroid) 75 mcg PO DAILY@0630 [facility] Last Admin: 01/02/17 06:20 Dose: 75 mcg Lidocaine (Lidoderm) 1 ea TD DAILY [facility] Last Admin: 01/01/17 10:33 Dose: Not Given Methylprednisolone (Solu-Medrol) 40 mg IVP Q8H [facility] Last Admin: 01/02/17 01:49 Dose: 40 mg Rosuvastatin Calcium (Crestor) 5 mg PO HS [facility] Last Admin: 01/01/17 22:04 Dose: 5 mg Sevelamer Carbonate (Renvela) 1,600 mg PO TIDCC [facility] Last Admin: 01/01/17 17:07 Dose: 1,600 mg - Labs Labs: 01/02/17 06:19 01/02/17 06:19 PT 13.1 SECONDS (9.7-12.2) H 12/26/16 08:05 INR 1.2 12/26/16 08:05 APTT 27 SECONDS (21-34) 01/01/17 06:00
[2017-01-02] MEDS ORDERED: Sulfamethoxazole/Trimethoprim 80 MG in Dextrose 5% In Water 100 ML IVPB SCH (10:00)
--- NOTE | 2017-01-02 10:33 | CP.PCM.PN ---
Subjective - Date & Time of Evaluation Date of Evaluation: 01/02/17 Time of Evaluation: 10:33 - Subjective Subjective: seen and examined on hd, tolerating well minimal uop s/p permcath rt chest Objective - Vital Signs/Intake and Output Vital Signs (last 24 hours): Temp Pulse Resp BP Pulse Ox 98.3 F 64 16 105/44 L 99 01/02/17 08:20 01/02/17 10:00 01/02/17 10:00 01/02/17 10:00 01/02/17 10:00 Intake and Output: 01/02/17 01/02/17 06:59 18:59 Intake Total 50 150 Balance 50 150 - Medications Medications: Current Medications Albuterol/Ipratropium (Duoneb 3 Mg/0.5 Mg (3 Ml) Ud) 3 ml INH RQ6 [facility] Famotidine (Pepcid) 20 mg PO DAILY [facility] Last Admin: 01/01/17 14:32 Dose: 20 mg Ferrous Sulfate (Feosol) 325 mg PO DAILY [facility] Last Admin: 01/01/17 14:32 Dose: 325 mg Glipizide (Glucotrol) 10 mg PO DAILY [facility] Last Admin: 01/01/17 09:31 Dose: Not Given Heparin Sodium (Porcine) (Heparin) 5,000 units SC Q12 [facility] Last Admin: 12/31/16 21:01 Dose: 5,000 units Piperacillin Sod/Tazobactam Sod (Zosyn 2.25 Gm Iv Premix) 2.25 gm in 50 mls @ 100 mls/hr IVPB Q8H [facility] Last Admin: 01/02/17 06:21 Dose: 100 mls/hr Doxycycline Hyclate 100 mg/ (Sodium Chloride) 100 mls @ 100 mls/hr IVPB Q12H [facility] Last Admin: 01/01/17 20:27 Dose: 100 mls/hr Trimethoprim/Sulfamethoxazole (80 mg/ Dextrose) 100 mls @ 100 mls/hr IVPB Q12H [facility] Insulin Human Regular (Novolin R) 0 unit SC ACHS [facility] PRN Reason: Protocol Last Admin: 01/02/17 08:22 Dose: 8 unit Levothyroxine Sodium (Synthroid) 75 mcg PO DAILY@0630 [facility] Last Admin: 01/02/17 06:20 Dose: 75 mcg Lidocaine (Lidoderm) 1 ea TD DAILY [facility] Last Admin: 01/01/17 10:33 Dose: Not Given Methylprednisolone (Solu-Medrol) 40 mg IVP Q8H [facility] Last Admin: 01/02/17 01:49 Dose: 40 mg Rosuvastatin Calcium (Crestor) 5 mg PO HS [facility] Last Admin: 01/01/17 22:04 Dose: 5 mg Sevelamer Carbonate (Renvela) 1,600 mg PO TIDCC [facility] Last Admin: 01/01/17 17:07 Dose: 1,600 mg Tramadol HCl (Ultram) 25 mg PO Q6H PRN PRN Reason: Pain, severe (8-10) - Labs Labs: 01/02/17 06:19 01/02/17 06:19 PT 13.1 SECONDS (9.7-12.2) H 12/26/16 08:05 INR 1.2 12/26/16 08:05 APTT 27 SECONDS (21-34) 01/01/17 06:00 - Constitutional Appears: Non-toxic, No Acute Distress - Head Exam Head Exam: NORMAL INSPECTION - Eye Exam Eye Exam: Normal appearance - ENT Exam ENT Exam: Mucous Membranes Moist, Normal Exam - Neck Exam Neck Exam: Normal Inspection - Respiratory Exam Respiratory Exam: Decreased Breath Sounds, NORMAL BREATHING PATTERN - Cardiovascular Exam Cardiovascular Exam: REGULAR RHYTHM - GI/Abdominal Exam GI & Abdominal Exam: Distended, Soft - Extremities Exam Extremities Exam: Normal Inspection Assessment and Plan (1) Anemia Status: Acute (2) Hypercalcemia Status: Acute (3) Renal failure Status: Acute (4) Acute kidney injury superimposed on chronic kidney disease Status: Acute (5) Atrial fibrillation with controlled ventricular response Status: Acute - Assessment and Plan (Free Text) Assessment: maintain hd tts await bone marrow biopsy, oncology follow up
[2017-01-02] MEDS: Tramadol 25 mg PO PRN (12:54)
[2017-01-02] MEDS: Lidocaine 5% Patch TD SCH (12:56)
[2017-01-02] MEDS: Albuterol-Ipratrop 3 mg / 0.5 (3 ml) UD INH SCH ×2 (14:00→19:43)
--- NOTE | 2017-01-02 14:53 | CP.PCM.PN ---
<Melina Livingston - Last Filed: 01/02/17 14:47> Subjective - Date & Time of Evaluation Date of Evaluation: 01/02/17 Time of Evaluation: 09:50 - Subjective Subjective: Resident Progress Note for Dr. Little Patient seen and examined at bedside. Patient is currently getting dialysis in bed. No reported acute events overnight. Patient reports she is feeling fine. She is tolerating diet well. Denies headache, dizziness, fever, chills, shortness of breath, or chest pain. Objective - Vital Signs/Intake and Output Vital Signs (last 24 hours): Temp Pulse Resp BP Pulse Ox 98 F 90 20 110/58 L 93 L 01/02/17 12:01 01/02/17 14:00 01/02/17 14:00 01/02/17 14:00 01/02/17 14:00 Intake and Output: 01/02/17 01/02/17 06:59 18:59 Intake Total 50 445 Balance 50 445 - Medications Medications: Current Medications Acyclovir (Zovirax) 400 mg PO DAILY [facility] Albuterol/Ipratropium (Duoneb 3 Mg/0.5 Mg (3 Ml) Ud) 3 ml INH RQ6 [facility] Famotidine (Pepcid) 20 mg PO DAILY [facility] Last Admin: 01/02/17 12:56 Dose: 20 mg Ferrous Sulfate (Feosol) 325 mg PO DAILY [facility] Last Admin: 01/02/17 12:56 Dose: 325 mg Glipizide (Glucotrol) 10 mg PO DAILY [facility] Last Admin: 01/02/17 10:58 Dose: 10 mg Heparin Sodium (Porcine) (Heparin) 5,000 units SC Q12 [facility] Last Admin: 12/31/16 21:01 Dose: 5,000 units Piperacillin Sod/Tazobactam Sod (Zosyn 2.25 Gm Iv Premix) 2.25 gm in 50 mls @ 100 mls/hr IVPB Q8H [facility] Last Admin: 01/02/17 06:21 Dose: 100 mls/hr Doxycycline Hyclate 100 mg/ (Sodium Chloride) 100 mls @ 100 mls/hr IVPB Q12H [facility] Last Admin: 01/02/17 13:02 Dose: 100 mls/hr Insulin Human Regular (Novolin R) 0 unit SC ACHS [facility] PRN Reason: Protocol Last Admin: 01/02/17 12:00 Dose: 4 unit Levothyroxine Sodium (Synthroid) 75 mcg PO DAILY@0630 [facility] Last Admin: 01/02/17 06:20 Dose: 75 mcg Lidocaine (Lidoderm) 1 ea TD DAILY [facility] Last Admin: 01/02/17 12:56 Dose: 1 ea Methylprednisolone (Solu-Medrol) 40 mg IVP Q8H [facility] Last Admin: 01/02/17 12:56 Dose: 40 mg Rosuvastatin Calcium (Crestor) 5 mg PO HS [facility] Last Admin: 01/01/17 22:04 Dose: 5 mg Sevelamer Carbonate (Renvela) 1,600 mg PO TIDCC [facility] Last Admin: 01/02/17 12:56 Dose: 1,600 mg Tramadol HCl (Ultram) 25 mg PO Q6H PRN PRN Reason: Pain, severe (8-10) Last Admin: 01/02/17 12:54 Dose: 25 mg Trimethoprim/Sulfamethoxazole (Bactrim Ds Tab) 2 tab PO Q24H [facility] - Labs Labs: 01/02/17 06:19 01/02/17 06:19 PT 13.1 SECONDS (9.7-12.2) H 12/26/16 08:05 INR 1.2 12/26/16 08:05 APTT 27 SECONDS (21-34) 01/01/17 06:00 - Constitutional Appears: No Acute Distress, Chronically Ill - Head Exam Head Exam: ATRAUMATIC, NORMAL INSPECTION - Eye Exam Eye Exam: Normal appearance - ENT Exam ENT Exam: Mucous Membranes Dry - Respiratory Exam Respiratory Exam: Decreased Breath Sounds, NORMAL BREATHING PATTERN - Cardiovascular Exam Cardiovascular Exam: REGULAR RHYTHM, +S1, +S2 - GI/Abdominal Exam GI & Abdominal Exam: Soft, Normal Bowel Sounds. absent: Tenderness - Extremities Exam Extremities Exam: Normal Capillary Refill - Neurological Exam Neurological Exam: Alert, Awake, Oriented x3 - Psychiatric Exam Psychiatric exam: Normal Affect, Normal Mood - Skin Skin Exam: Normal Color, Warm Assessment and Plan - Assessment and Plan (Free Text) Assessment: A fib -Continue amiodarone 200mg and cardizem 240mg -Hold anticoagulation meds due to anemia CHF -Diastolic congestive heart failure -BNP today: 64077 -Echo from 12/27/16 showed EF at 60% moderate LV diastolic dysfunction. LA is moderately dilated. RA is mildly dilated, mitral annular calcification is moderate. MV is calcified and displays decreased opening. Mild MV stenosis. severe pulmonary hypertension -Hold ACEI and ARB due to ARF -Monitor daily weights and I&O HTN -BP stable -Continue to monitor Case discussed with attending Dr. Little <Nam Littel - Last Filed: 01/02/17 23:15> Objective - Vital Signs/Intake and Output Vital Signs (last 24 hours): Temp Pulse Resp BP Pulse Ox 98.4 F 78 16 117/64 95 01/02/17 20:00 01/02/17 21:00 01/02/17 21:34 01/02/17 21:00 01/02/17 21:00 Intake and Output: 01/02/17 01/03/17 18:59 06:59 Intake Total 690 100 Output Total 0 Balance 690 100 - Medications Medications: Current Medications Acyclovir (Zovirax) 400 mg PO DAILY [facility] Albuterol/Ipratropium (Duoneb 3 Mg/0.5 Mg (3 Ml) Ud) 3 ml INH RQ6 [facility] Last Admin: 01/02/17 19:43 Dose: 3 ml Famotidine (Pepcid) 20 mg PO DAILY [facility] Last Admin: 01/02/17 12:56 Dose: 20 mg Ferrous Sulfate (Feosol) 325 mg PO DAILY [facility] Last Admin: 01/02/17 12:56 Dose: 325 mg Glipizide (Glucotrol) 10 mg PO DAILY [facility] Last Admin: 01/02/17 10:58 Dose: 10 mg Heparin Sodium (Porcine) (Heparin) 5,000 units SC Q12 [facility] Last Admin: 12/31/16 21:01 Dose: 5,000 units Piperacillin Sod/Tazobactam Sod (Zosyn 2.25 Gm Iv Premix) 2.25 gm in 50 mls @ 100 mls/hr IVPB Q8H [facility] Last Admin: 01/02/17 22:15 Dose: 100 mls/hr Doxycycline Hyclate 100 mg/ (Sodium Chloride) 100 mls @ 100 mls/hr IVPB Q12H [facility] Last Admin: 01/02/17 20:30 Dose: 100 mls/hr Insulin Human Regular (Novolin R) 0 unit SC ACHS [facility] PRN Reason: Protocol Last Admin: 01/02/17 22:23 Dose: Not Given Levothyroxine Sodium (Synthroid) 75 mcg PO DAILY@0630 [facility] Last Admin: 01/02/17 06:20 Dose: 75 mcg Lidocaine (Lidoderm) 1 ea TD DAILY [facility] Last Admin: 01/02/17 12:56 Dose: 1 ea Methylprednisolone (Solu-Medrol) 40 mg IVP Q8H [facility] Last Admin: 01/02/17 16:58 Dose: 40 mg Rosuvastatin Calcium (Crestor) 5 mg PO HS [facility] Last Admin: 01/02/17 22:23 Dose: 5 mg Sevelamer Carbonate (Renvela) 1,600 mg PO TIDCC [facility] Last Admin: 01/02/17 16:17 Dose: 1,600 mg Tramadol HCl (Ultram) 25 mg PO Q6H PRN PRN Reason: Pain, severe (8-10) Last Admin: 01/02/17 12:54 Dose: 25 mg Trimethoprim/Sulfamethoxazole (Bactrim Ds Tab) 2 tab PO Q24H [facility] Last Admin: 01/02/17 16:00 Dose: 2 tab - Labs Labs: 01/02/17 06:19 01/02/17 06:19 PT 13.1 SECONDS (9.7-12.2) H 12/26/16 08:05 INR 1.2 12/26/16 08:05 APTT 27 SECONDS (21-34) 01/01/17 06:00 Assessment and Plan - Assessment and Plan (Free Text) Assessment: Patient seen and evaluated with the medical radiation therapist Plan of care as above
--- NOTE | 2017-01-02 15:36 | CP.CCUPN ---
<EdnaSunny love R - Last Filed: 01/02/17 16:02> CCU Subjective - Physician Review Subjective (Free Text): Patient seen and examined at bedside. Patient alert, AAOx3, able to follow commands. Patient continues to have labored breathing on nasal cannula, she refuses to use BiPAP. Patient currently denies any pain or discomfort. Denies chest pain, abdominal pain, fever, palpitations, nausea, vomiting. 01/02/17 15:32 CCU Objective - Vital Signs / Intake & Output Vital Signs (Last 4 hours): Vital Signs Temp Pulse Pulse Resp BP BP Pulse Ox 01/02/17 14:00 90 20 110/58 L 93 L 01/02/17 13:40 83 111/51 L 97 01/02/17 13:25 76 99/48 L 96 01/02/17 13:00 92 H 21 97/64 L 97 01/02/17 12:55 81 106/62 97 01/02/17 12:25 78 103/61 97 01/02/17 12:01 98 F 01/02/17 12:00 76 20 99/62 L 96 01/02/17 11:55 73 116/57 L 96 01/02/17 11:41 18 Intake and Output (Last 8hrs): Intake & Output 01/02/17 01/02/17 01/02/17 06:59 14:59 22:59 Intake Total 0 445 Balance 0 445 Weight 178 lb Intake: Intake, IV Amount 150 Right Wrist 150 Oral 0 295 Other: # Bowel Movements 1 - Physical Exam Head: Positive for: Atraumatic, Normocephalic Pupils: Positive for: PERRL Extroacular Muscles: Positive for: EOMI Mouth: Positive for: Moist Mucous Membranes Respiratory/Chest: Positive for: Rhonchi Cardiovascular: Positive for: Regular Rate and Rhythm, Normal S1, S2 Abdomen: Positive for: Normal Bowel Sounds. Negative for: Tenderness, Distention Upper Extremity: Negative for: Edema Lower Extremity: Negative for: Edema Neurological: Positive for: CN II-XII Intact, Speech Normal Psychiatric: Positive for: Alert, Oriented x 3, Normal Insight - Medications Active Medications: Active Medications Generic Name Dose Route Start Last Admin Trade Name Freq PRN Reason Stop Dose Admin Acyclovir 400 mg 01/03/17 10:00 Zovirax PO DAILY MARIBETH Albuterol/Ipratropium 3 ml 01/02/17 14:00 Duoneb 3 Mg/0.5 Mg (3 Ml) Ud INH RQ6 MARIBETH Famotidine 20 mg 12/27/16 10:00 01/02/17 12:56 Pepcid PO 20 mg DAILY MARIBETH Administration Ferrous Sulfate 325 mg 12/26/16 10:00 01/02/17 12:56 Feosol PO 325 mg DAILY MARIBETH Administration Glipizide 10 mg 12/27/16 10:00 01/02/17 10:58 Glucotrol PO 10 mg DAILY MARIBETH Administration Heparin Sodium (Porcine) 5,000 units 12/30/16 10:00 12/31/16 21:01 Heparin SC 5,000 units Q12 MARIBETH Administration Piperacillin Sod/Tazobactam Sod 2.25 gm in 50 mls @ 100 mls/hr 12/25/16 23:00 01/02/17 06:21 Zosyn 2.25 Gm Iv Premix IVPB 100 mls/hr Q8H MARIBETH Administration Doxycycline Hyclate 100 mg/ 100 mls @ 100 mls/hr 12/25/16 21:00 01/02/17 13: 02 Sodium Chloride IVPB 100 mls/hr Q12H MARIBETH Administration Insulin Human Regular 0 unit 12/31/16 10:15 01/02/17 12:00 Novolin R SC 4 unit ACHS MARIBETH Administration Protocol Levothyroxine Sodium 75 mcg 12/26/16 06:30 01/02/17 06:20 Synthroid PO 75 mcg DAILY@0630 MARIBETH Administration Lidocaine 1 ea 12/30/16 21:00 01/02/17 12:56 Lidoderm TD 1 ea DAILY MARIBETH Administration Methylprednisolone 40 mg 12/27/16 17:45 01/02/17 12:56 Solu-Medrol IVP 40 mg Q8H MARIBETH Administration Rosuvastatin Calcium 5 mg 12/30/16 22:00 01/01/17 22:04 Crestor PO 5 mg HS MARIBETH Administration Sevelamer Carbonate 1,600 mg 12/30/16 08:00 01/02/17 12:56 Renvela PO 1,600 mg TIDCC MARIBETH Administration Tramadol HCl 25 mg 01/02/17 09:31 01/02/17 12:54 Ultram PO 25 mg Q6H PRN Administration Pain, severe (8-10) Trimethoprim/Sulfamethoxazole 2 tab 01/02/17 15:00 Bactrim Ds Tab PO Q24H MARIBETH - Patient Studies Lab Studies: Microbiology Studies 12/29/16 20:30 Blood Culture - Preliminary Blood NO GROWTH AFTER 3 DAYS 12/29/16 20:00 Blood Culture - Preliminary Blood NO GROWTH AFTER 3 DAYS Lab Studies 01/02/17 01/02/17 01/02/17 Range/Units 11:33 07:31 06:19 WBC (4.8-10.8) K/uL RBC (3.80-5.20) Mil/uL Hgb (11.0-16.0) g/dL Hct (34.0-47.0) % MCV (81.0-99.0) fL MCH (27.0-31.0) pg MCHC (33.0-37.0) g/dL RDW (11.5-14.5) % Plt Count (130-400) K/uL MPV (7.2-11.7) fL Neut % (Auto) (50.0-75.0) % Lymph % (Auto) (20.0-40.0) % [place] % (Auto) (0.0-10.0) % Eos % (Auto) (0.0-4.0) % Baso % (Auto) (0.0-2.0) % Neut # (1.8-7.0) K/uL Lymph # (1.0-4.3) K/uL [place] # (0.0-0.8) K/uL Eos # (0.0-0.7) K/uL Baso # (0.0-0.2) K/uL Neutrophils % (Manual) (50-75) % Lymphocytes % (Manual) (20-40) % Monocytes % (Manual) (0-10) % Platelet Estimate (NORMAL) Hypochromasia (manual) Poikilocytosis (manual Basophilic Stippling Anisocytosis (manual) Target Cells Tear Drop Cells Sodium 133 (132-148) mmol/L Potassium 4.5 (3.6-5.2) mmol/L Chloride 92 L (98-107) mmol/L Carbon Dioxide 27 (22-30) mmol/L Anion Gap 19 (10-20) BUN 61 H (7-17) mg/dL Creatinine 3.6 H (0.7-1.2) MG/DL Est GFR ( Amer) 15 Est GFR (Non-Af Amer) 12 POC Glucose (mg/dL) 202 H 307 H (65-110) mg/dL Random Glucose 263 H (65-105) mg/dL Calcium 7.6 L (8.6-10.4) mg/dl Phosphorus 7.1 H (2.5-4.5) mg/dL Magnesium 2.0 (1.6-2.3) mg/dL Total Bilirubin 1.1 (0.2-1.3) mg/dL AST 16 (14-36) U/L ALT 34 (9-52) U/L Alkaline Phosphatase 57 (38-126) U/L Total Protein 5.4 L (6.3-8.3) g/dL Albumin 3.3 L (3.5-5.0) g/dL Globulin 2.2 (2.2-3.9) gm/dL Albumin/Globulin Ratio 1.5 (1.0-2.1) 01/02/17 01/01/17 01/01/17 Range/Units 06:19 22:18 17:03 WBC 20.7 H (4.8-10.8) K/uL RBC 3.24 L (3.80-5.20) Mil/uL Hgb 9.9 L D (11.0-16.0) g/dL Hct 29.8 L (34.0-47.0) % MCV 91.9 D (81.0-99.0) fL MCH 30.7 (27.0-31.0) pg MCHC 33.4 (33.0-37.0) g/dL RDW 16.9 H (11.5-14.5) % Plt Count 183 (130-400) K/uL MPV 8.5 (7.2-11.7) fL Neut % (Auto) 94.2 H (50.0-75.0) % Lymph % (Auto) 3.3 L (20.0-40.0) % [place] % (Auto) 2.4 (0.0-10.0) % Eos % (Auto) 0.0 (0.0-4.0) % Baso % (Auto) 0.1 (0.0-2.0) % Neut # 19.5 H (1.8-7.0) K/uL Lymph # 0.7 L (1.0-4.3) K/uL [place] # 0.5 (0.0-0.8) K/uL Eos # 0.0 (0.0-0.7) K/uL Baso # 0.0 (0.0-0.2) K/uL Neutrophils % (Manual) 95 H (50-75) % Lymphocytes % (Manual) 3 L (20-40) % Monocytes % (Manual) 2 (0-10) % Platelet Estimate Normal (NORMAL) Hypochromasia (manual) Slight Poikilocytosis (manual Slight Basophilic Stippling Slight Anisocytosis (manual) Slight Target Cells Slight Tear Drop Cells Slight Sodium (132-148) mmol/L Potassium (3.6-5.2) mmol/L Chloride (98-107) mmol/L Carbon Dioxide (22-30) mmol/L Anion Gap (10-20) BUN (7-17) mg/dL Creatinine (0.7-1.2) MG/DL Est GFR ( Amer) Est GFR (Non-Af Amer) POC Glucose (mg/dL) 283 H 280 H (65-110) mg/dL Random Glucose (65-105) mg/dL Calcium (8.6-10.4) mg/dl Phosphorus (2.5-4.5) mg/dL Magnesium (1.6-2.3) mg/dL Total Bilirubin (0.2-1.3) mg/dL AST (14-36) U/L ALT (9-52) U/L Alkaline Phosphatase (38-126) U/L Total Protein (6.3-8.3) g/dL Albumin (3.5-5.0) g/dL Globulin (2.2-3.9) gm/dL Albumin/Globulin Ratio (1.0-2.1) Laboratory Results - last 24 hr 01/01/17 01/01/17 01/02/17 17:03 22:18 06:19 WBC 20.7 H RBC 3.24 L Hgb 9.9 L D Hct 29.8 L MCV 91.9 D MCH 30.7 MCHC 33.4 RDW 16.9 H Plt Count 183 MPV 8.5 Neut % (Auto) 94.2 H Lymph % (Auto) 3.3 L [place] % (Auto) 2.4 Eos % (Auto) 0.0 Baso % (Auto) 0.1 Neut # 19.5 H Lymph # 0.7 L [place] # 0.5 Eos # 0.0 Baso # 0.0 Neutrophils % (Manual) 95 H Lymphocytes % (Manual) 3 L Monocytes % (Manual) 2 Platelet Estimate Normal Hypochromasia (manual) Slight Poikilocytosis (manual Slight Basophilic Stippling Slight Anisocytosis (manual) Slight Target Cells Slight Tear Drop Cells Slight Sodium Potassium Chloride Carbon Dioxide Anion Gap BUN Creatinine Est GFR ( Amer) Est GFR (Non-Af Amer) POC Glucose (mg/dL) 280 H 283 H Random Glucose Calcium Phosphorus Magnesium Total Bilirubin AST ALT Alkaline Phosphatase Total Protein Albumin Globulin Albumin/Globulin Ratio 01/02/17 01/02/17 01/02/17 06:19 07:31 11:33 WBC RBC Hgb Hct MCV MCH MCHC RDW Plt Count MPV Neut % (Auto) Lymph % (Auto) [place] % (Auto) Eos % (Auto) Baso % (Auto) Neut # Lymph # [place] # Eos # Baso # Neutrophils % (Manual) Lymphocytes % (Manual) Monocytes % (Manual) Platelet Estimate Hypochromasia (manual) Poikilocytosis (manual Basophilic Stippling Anisocytosis (manual) Target Cells Tear Drop Cells Sodium 133 Potassium 4.5 Chloride 92 L Carbon Dioxide 27 Anion Gap 19 BUN 61 H Creatinine 3.6 H Est GFR ( Amer) 15 Est GFR (Non-Af Amer) 12 POC Glucose (mg/dL) 307 H 202 H Random Glucose 263 H Calcium 7.6 L Phosphorus 7.1 H Magnesium 2.0 Total Bilirubin 1.1 AST 16 ALT 34 Alkaline Phosphatase 57 Total Protein 5.4 L Albumin 3.3 L Globulin 2.2 Albumin/Globulin Ratio 1.5 Fingerstick Blood Sugar Results: 283 Review of Systems - Constitutional Constitutional: Weakness. absent: Fever, Chills, Sweats - Cardiovascular Cardiovascular: UNREMARKABLE - Respiratory Respiratory: Dyspnea. absent: Cough - Gastrointestinal Gastrointestinal: UNREMARKABLE - Genitourinary Genitourinary: Difficulty Urinating - Neurological Neurological: UNREMARKABLE Critical Care Progress Note - Nutrition Nutrition: Nutrition Category Date Time Status NPO Diet [DIET] Diets 01/02/17 Dinner Active Assessment/Plan (1) CHF exacerbation Current Visit: No Status: Acute (2) Acute kidney injury superimposed on chronic kidney disease Current Visit: No Status: Acute (3) Anemia Current Visit: No Status: Chronic (4) Atrial fibrillation with controlled ventricular response Current Visit: No Status: Acute (5) HTN (hypertension) Current Visit: No Status: Chronic (6) Leucocytosis Current Visit: No Status: Acute (7) History of asthma Current Visit: Yes Status: Acute (8) Gastritis Current Visit: No Status: Acute (9) Diabetes 1.5, 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 Today 01/02/17: HD today. NPO after midnight for Portacath placement Sunday. Neuro: Alert and oriented 3 Pulm: Acute hypoxic respiratory failure secondary to interstitial pneumonitis, seen on CT chest. COPD continue Methylprednisolone IV every 8h. Patient may need bronch with BAL/biopsy, consulted Dr. Kessler. Patient may have pulmonary invasive Myeloma (rare, chemotx will help), vs infectious etiology. - elevated LDH; Bactrim 2 tab PO daily CV: Acute on chronic decompensated diastolic heart failure, fluid removal via dialysis, NOT IMPROVING PULMONARY function/radiographic appearance. Heme: Worsening anemia Transfused with 2 uniut pRBCs today, multifactorial with critical illness, multiple myeloma. Will monitor. Multiple myeloma, intended treatment with Velcade and Cytoxan and Decadron. Bone marrow biopsy planned once patient is stable. Hem/Onc following. Renal: acute renal failure requiring Daily dialysis for fluid removal. Endo: DM type II, regular insulin sliding scale for coverage, Glucotrol. Hypothyroidism, continue levothyroxine. GI: Diabetic diet, Glipizide 10 mg PO daily, Insulin ID: Possible pneumonia, continue antibiotics (active since 12/25): doxycycline and Zosyn. DVT proph - heparin subcutaneous GI proph - Pepcid valencia for strict I/O's during acute illness Code status - full code <Pepe Kessler S - Last Filed: 01/02/17 18:10> CCU Objective - Vital Signs / Intake & Output Vital Signs (Last 4 hours): Vital Signs Temp Pulse Resp BP Pulse Ox 01/02/17 17:00 89 20 111/67 98 01/02/17 16:00 98.8 F 91 H 18 126/66 97 01/02/17 15:55 18 01/02/17 15:00 89 21 103/55 L 96 Intake and Output (Last 8hrs): Intake & Output 01/02/17 01/02/17 01/02/17 06:59 14:59 22:59 Intake Total 0 445 245 Balance 0 445 245 Weight 178 lb Intake: Intake, IV Amount 150 50 Right Wrist 150 50 Oral 0 295 195 Other: # Bowel Movements 1 - Medications Active Medications: Active Medications Generic Name Dose Route Start Last Admin Trade Name Demar PRN Reason Stop Dose Admin Acyclovir 400 mg 01/03/17 10:00 Zovirax PO DAILY MARIBETH Albuterol/Ipratropium 3 ml 01/02/17 14:00 Duoneb 3 Mg/0.5 Mg (3 Ml) Ud INH RQ6 MARIBETH Famotidine 20 mg 12/27/16 10:00 01/02/17 12:56 Pepcid PO 20 mg DAILY MARIBETH Administration Ferrous Sulfate 325 mg 12/26/16 10:00 01/02/17 12:56 Feosol PO 325 mg DAILY MARIBETH Administration Glipizide 10 mg 12/27/16 10:00 01/02/17 10:58 Glucotrol PO 10 mg DAILY MARIBETH Administration Heparin Sodium (Porcine) 5,000 units 12/30/16 10:00 12/31/16 21:01 Heparin SC 5,000 units Q12 MARIBETH Administration Piperacillin Sod/Tazobactam Sod 2.25 gm in 50 mls @ 100 mls/hr 12/25/16 23:00 01/02/17 16:00 Zosyn 2.25 Gm Iv Premix IVPB 100 mls/hr Q8H MARIBETH Administration Doxycycline Hyclate 100 mg/ 100 mls @ 100 mls/hr 12/25/16 21:00 01/02/17 13: 02 Sodium Chloride IVPB 100 mls/hr Q12H MARIBETH Administration Insulin Human Regular 0 unit 12/31/16 10:15 01/02/17 16:18 Novolin R SC 6 unit ACHS MARIBETH Administration Protocol Levothyroxine Sodium 75 mcg 12/26/16 06:30 01/02/17 06:20 Synthroid PO 75 mcg DAILY@0630 MARIBETH Administration Lidocaine 1 ea 12/30/16 21:00 01/02/17 12:56 Lidoderm TD 1 ea DAILY MARIBETH Administration Methylprednisolone 40 mg 12/27/16 17:45 01/02/17 16:58 Solu-Medrol IVP 40 mg Q8H MARIBETH Administration Rosuvastatin Calcium 5 mg 12/30/16 22:00 01/01/17 22:04 Crestor PO 5 mg HS MARIBETH Administration Sevelamer Carbonate 1,600 mg 12/30/16 08:00 01/02/17 16:17 Renvela PO 1,600 mg TIDCC MARIBETH Administration Tramadol HCl 25 mg 01/02/17 09:31 01/02/17 12:54 Ultram PO 25 mg Q6H PRN Administration Pain, severe (8-10) Trimethoprim/Sulfamethoxazole 2 tab 01/02/17 15:00 01/02/17 16:00 Bactrim Ds Tab PO 2 tab Q24H MARIBETH Administration - Patient Studies Lab Studies: Microbiology Studies 12/29/16 20:30 Blood Culture - Preliminary Blood NO GROWTH AFTER 3 DAYS 12/29/16 20:00 Blood Culture - Preliminary Blood NO GROWTH AFTER 3 DAYS Lab Studies 01/02/17 01/02/17 01/02/17 Range/Units 16:16 11:33 07:31 WBC (4.8-10.8) K/uL RBC (3.80-5.20) Mil/uL Hgb (11.0-16.0) g/dL Hct (34.0-47.0) % MCV (81.0-99.0) fL MCH (27.0-31.0) pg MCHC (33.0-37.0) g/dL RDW (11.5-14.5) % Plt Count (130-400) K/uL MPV (7.2-11.7) fL Neut % (Auto) (50.0-75.0) % Lymph % (Auto) (20.0-40.0) % [place] % (Auto) (0.0-10.0) % Eos % (Auto) (0.0-4.0) % Baso % (Auto) (0.0-2.0) % Neut # (1.8-7.0) K/uL Lymph # (1.0-4.3) K/uL [place] # (0.0-0.8) K/uL Eos # (0.0-0.7) K/uL Baso # (0.0-0.2) K/uL Neutrophils % (Manual) (50-75) % Lymphocytes % (Manual) (20-40) % Monocytes % (Manual) (0-10) % Platelet Estimate (NORMAL) Hypochromasia (manual) Poikilocytosis (manual Basophilic Stippling Anisocytosis (manual) Target Cells Tear Drop Cells Sodium (132-148) mmol/L Potassium (3.6-5.2) mmol/L Chloride (98-107) mmol/L Carbon Dioxide (22-30) mmol/L Anion Gap (10-20) BUN (7-17) mg/dL Creatinine (0.7-1.2) MG/DL Est GFR ( Amer) Est GFR (Non-Af Amer) POC Glucose (mg/dL) 251 H 202 H 307 H (65-110) mg/dL Random Glucose (65-105) mg/dL Calcium (8.6-10.4) mg/dl Phosphorus (2.5-4.5) mg/dL Magnesium (1.6-2.3) mg/dL Total Bilirubin (0.2-1.3) mg/dL AST (14-36) U/L ALT (9-52) U/L Alkaline Phosphatase (38-126) U/L Total Protein (6.3-8.3) g/dL Albumin (3.5-5.0) g/dL Globulin (2.2-3.9) gm/dL Albumin/Globulin Ratio (1.0-2.1) 01/02/17 01/02/17 01/01/17 Range/Units 06:19 06:19 22:18 WBC 20.7 H (4.8-10.8) K/uL RBC 3.24 L (3.80-5.20) Mil/uL Hgb 9.9 L D (11.0-16.0) g/dL Hct 29.8 L (34.0-47.0) % MCV 91.9 D (81.0-99.0) fL MCH 30.7 (27.0-31.0) pg MCHC 33.4 (33.0-37.0) g/dL RDW 16.9 H (11.5-14.5) % Plt Count 183 (130-400) K/uL MPV 8.5 (7.2-11.7) fL Neut % (Auto) 94.2 H (50.0-75.0) % Lymph % (Auto) 3.3 L (20.0-40.0) % [place] % (Auto) 2.4 (0.0-10.0) % Eos % (Auto) 0.0 (0.0-4.0) % Baso % (Auto) 0.1 (0.0-2.0) % Neut # 19.5 H (1.8-7.0) K/uL Lymph # 0.7 L (1.0-4.3) K/uL [place] # 0.5 (0.0-0.8) K/uL Eos # 0.0 (0.0-0.7) K/uL Baso # 0.0 (0.0-0.2) K/uL Neutrophils % (Manual) 95 H (50-75) % Lymphocytes % (Manual) 3 L (20-40) % Monocytes % (Manual) 2 (0-10) % Platelet Estimate Normal (NORMAL) Hypochromasia (manual) Slight Poikilocytosis (manual Slight Basophilic Stippling Slight Anisocytosis (manual) Slight Target Cells Slight Tear Drop Cells Slight Sodium 133 (132-148) mmol/L Potassium 4.5 (3.6-5.2) mmol/L Chloride 92 L (98-107) mmol/L Carbon Dioxide 27 (22-30) mmol/L Anion Gap 19 (10-20) BUN 61 H (7-17) mg/dL Creatinine 3.6 H (0.7-1.2) MG/DL Est GFR ( Amer) 15 Est GFR (Non-Af Amer) 12 POC Glucose (mg/dL) 283 H (65-110) mg/dL Random Glucose 263 H (65-105) mg/dL Calcium 7.6 L (8.6-10.4) mg/dl Phosphorus 7.1 H (2.5-4.5) mg/dL Magnesium 2.0 (1.6-2.3) mg/dL Total Bilirubin 1.1 (0.2-1.3) mg/dL AST 16 (14-36) U/L ALT 34 (9-52) U/L Alkaline Phosphatase 57 (38-126) U/L Total Protein 5.4 L (6.3-8.3) g/dL Albumin 3.3 L (3.5-5.0) g/dL Globulin 2.2 (2.2-3.9) gm/dL Albumin/Globulin Ratio 1.5 (1.0-2.1) Laboratory Results - last 24 hr 01/01/17 01/02/17 01/02/17 22:18 06:19 06:19 WBC 20.7 H RBC 3.24 L Hgb 9.9 L D Hct 29.8 L MCV 91.9 D MCH 30.7 MCHC 33.4 RDW 16.9 H Plt Count 183 MPV 8.5 Neut % (Auto) 94.2 H Lymph % (Auto) 3.3 L [place] % (Auto) 2.4 Eos % (Auto) 0.0 Baso % (Auto) 0.1 Neut # 19.5 H Lymph # 0.7 L [place] # 0.5 Eos # 0.0 Baso # 0.0 Neutrophils % (Manual) 95 H Lymphocytes % (Manual) 3 L Monocytes % (Manual) 2 Platelet Estimate Normal Hypochromasia (manual) Slight Poikilocytosis (manual Slight Basophilic Stippling Slight Anisocytosis (manual) Slight Target Cells Slight Tear Drop Cells Slight Sodium 133 Potassium 4.5 Chloride 92 L Carbon Dioxide 27 Anion Gap 19 BUN 61 H Creatinine 3.6 H Est GFR ( Amer) 15 Est GFR (Non-Af Amer) 12 POC Glucose (mg/dL) 283 H Random Glucose 263 H Calcium 7.6 L Phosphorus 7.1 H Magnesium 2.0 Total Bilirubin 1.1 AST 16 ALT 34 Alkaline Phosphatase 57 Total Protein 5.4 L Albumin 3.3 L Globulin 2.2 Albumin/Globulin Ratio 1.5 01/02/17 01/02/17 01/02/17 07:31 11:33 16:16 WBC RBC Hgb Hct MCV MCH MCHC RDW Plt Count MPV Neut % (Auto) Lymph % (Auto) [place] % (Auto) Eos % (Auto) Baso % (Auto) Neut # Lymph # [place] # Eos # Baso # Neutrophils % (Manual) Lymphocytes % (Manual) Monocytes % (Manual) Platelet Estimate Hypochromasia (manual) Poikilocytosis (manual Basophilic Stippling Anisocytosis (manual) Target Cells Tear Drop Cells Sodium Potassium Chloride Carbon Dioxide Anion Gap BUN Creatinine Est GFR ( Amer) Est GFR (Non-Af Amer) POC Glucose (mg/dL) 307 H 202 H 251 H Random Glucose Calcium Phosphorus Magnesium Total Bilirubin AST ALT Alkaline Phosphatase Total Protein Albumin Globulin Albumin/Globulin Ratio Critical Care Progress Note - Nutrition Nutrition: Nutrition Category Date Time Status NPO Diet [DIET] Diets 01/02/17 Dinner Active Assessment/Plan (1) COPD (chronic obstructive pulmonary disease) Current Visit: Yes Status: Acute (2) Pulmonary hypertension Current Visit: Yes Status: Acute (3) Anemia Current Visit: Yes Status: Acute (4) CHF (congestive heart failure) Current Visit: Yes Status: Acute (5) Acute kidney injury Current Visit: No Status: Acute Attending/Attestation - Attestation I have personally seen and examined this patient.: Yes I have fully participated in the care of the patient.: Yes I have reviewed all pertinent clinical information: Yes Notes (Text): 01/02/17 18:08 Patient seen and examined in the intensive care unit. Case discussed with house staff in the morning. Oxygenation improving and FiO2 reduced to 80% Remains on high flow oxygen For bone marrow biopsy tomorrow Started on Bactrim to cover PCP Continue antibiotics, IV steroids Continue hemodialysis
[2017-01-02] MEDS: Tmp-Smz 800 mg-160 mg DS Tab PO SCH (16:00)
[2017-01-03] MEDS: Albuterol-Ipratrop 3 mg / 0.5 (3 ml) UD INH SCH ×4 (01:06→19:49)
[2017-01-03] MEDS: MethylPREDNISolone 40 mg Vial IVP SCH ×3 (02:31→18:38)
[2017-01-03] MEDS: Piperacill/Tazo 2.25gm in Dex 2.25 GM/50 ML BAG IVPB SCH ×3 (06:00→22:45)
[2017-01-03 06:26] LABS: BASO % 0.1 % (0.0-2.0); HEMATOCRIT 32.8 % (34.0-47.0); LYMPH # 0.6 K/uL (1.0-4.3); LYMPH % 2.5 % (20.0-40.0); MEAN CELL VOLUME 91.1 fL (81.0-99.0); MEAN CORPUSCULAR HEMOGLOBIN 30.6 pg (27.0-31.0); MEAN CORPUSCULAR HGB CONC 33.6 g/dL (33.0-37.0); MEAN PLATELET VOLUME 8.6 fL (7.2-11.7); MONO # 0.8 K/uL (0.0-0.8); MONO % 3.5 % (0.0-10.0); NRBC % 0.1 % (0.0-2.0); PLATELET COUNT 197 K/uL (130-400); RED CELL DISTRIBUTION WIDTH 16.4 % (11.5-14.5)
[2017-01-03 06:31] LABS: POTASSIUM 3.6 mmol/L (3.6-5.2)
[2017-01-03 06:33] LABS: ALB/GLOB RATIO 1.5 (1.0-2.1); BILIRUBIN,TOTAL 0.8 mg/dL (0.2-1.3); TOTAL PROTEIN 6.1 g/dL (6.3-8.3)
[2017-01-03 06:34] LABS: CALCIUM 7.4 mg/dl (8.6-10.4); MAGNESIUM 1.8 mg/dL (1.6-2.3); PHOSPHOROUS 4.9 mg/dL (2.5-4.5)
[2017-01-03] MEDS: Levothyroxine 75 MCG TAB PO SCH (07:00)
[2017-01-03 08:58] LABS: NEUTROPHIL 91 % (50-75); TOTAL CELLS COUNTED 100
[2017-01-03 08:59] LABS: LARGE PLATELETS PRESENT
[2017-01-03] MEDS ORDERED: Lidocaine 1% Inj (20ml) ONE (09:11)
[2017-01-03] MEDS: (Novolin R) Insulin Human Regular 100 units/ml vial SC SCH ×4 (09:39→23:55)
[2017-01-03] MEDS: Lidocaine 5% Patch TD SCH ×2 (10:17→10:43)
--- NOTE | 2017-01-03 10:30 | CP.CCUPN ---
<Sunny Bishop R - Last Filed: 01/03/17 13:30> CCU Subjective - Physician Review Subjective (Free Text): Patient seen and examined at bedside. Patient alert, AAOx3, able to follow commands. Patient continues to have labored breathing on nasal cannula, she refuses to use BiPAP. Patient admits to left sided back and flank pain which she notes has been ongoing for the past couple of weeks. Denies chest pain, abdominal pain, fever, palpitations, nausea, vomiting. Per nursing staff, no acute events overnight. Case discussed with housestaff, medical record and labs reviewed. 01/03/17 10:29 CCU Objective - Vital Signs / Intake & Output Vital Signs (Last 4 hours): Vital Signs Temp Pulse Resp BP Pulse Ox 01/03/17 09:36 18 01/03/17 08:00 97.8 F 01/03/17 07:36 16 01/03/17 07:00 75 17 99 01/03/17 06:53 70 21 130/51 L 94 L 01/03/17 06:29 16 Intake and Output (Last 8hrs): Intake & Output 01/02/17 01/03/17 01/03/17 22:59 06:59 14:59 Intake Total 345 100 0 Output Total 0 0 0 Balance 345 100 0 Weight 166 lb 7.184 oz Intake: Intake, IV Amount 150 50 Right Wrist 150 50 Oral 195 50 0 Output: Urine 0 0 0 Urine, Voided 0 0 0 Stool 0 0 0 - Physical Exam Head: Positive for: Atraumatic, Normocephalic Pupils: Positive for: PERRL Extroacular Muscles: Positive for: EOMI Mouth: Positive for: Moist Mucous Membranes Respiratory/Chest: Positive for: Rhonchi Cardiovascular: Positive for: Regular Rate and Rhythm, Normal S1, S2 Abdomen: Positive for: Normal Bowel Sounds. Negative for: Tenderness, Distention Upper Extremity: Negative for: Edema Lower Extremity: Negative for: Edema Neurological: Positive for: CN II-XII Intact, Speech Normal Psychiatric: Positive for: Alert, Oriented x 3, Normal Insight - Medications Active Medications: Active Medications Generic Name Dose Route Start Last Admin Trade Name Freq PRN Reason Stop Dose Admin Acyclovir 400 mg 01/03/17 10:00 Zovirax PO DAILY MARIBETH Albuterol/Ipratropium 3 ml 01/02/17 14:00 01/03/17 07:38 Duoneb 3 Mg/0.5 Mg (3 Ml) Ud INH 3 ml RQ6 MARIBETH Administration Famotidine 20 mg 12/27/16 10:00 01/03/17 10:18 Pepcid PO 20 mg DAILY MARIBETH Administration Ferrous Sulfate 325 mg 12/26/16 10:00 01/03/17 10:18 Feosol PO 325 mg DAILY MARIBETH Administration Glipizide 10 mg 12/27/16 10:00 01/03/17 10:24 Glucotrol PO 10 mg DAILY MARIBETH Administration Heparin Sodium (Porcine) 5,000 units 12/30/16 10:00 12/31/16 21:01 Heparin SC 5,000 units Q12 MARIBETH Administration Piperacillin Sod/Tazobactam Sod 2.25 gm in 50 mls @ 100 mls/hr 12/25/16 23:00 01/03/17 06:00 Zosyn 2.25 Gm Iv Premix IVPB 100 mls/hr Q8H MARIBETH Administration Doxycycline Hyclate 100 mg/ 100 mls @ 100 mls/hr 12/25/16 21:00 01/03/17 10: 27 Sodium Chloride IVPB 100 mls/hr Q12H MARIBETH Administration Insulin Human Regular 0 unit 12/31/16 10:15 01/03/17 09:39 Novolin R SC 6 unit ACHS MARIBETH Administration Protocol Levothyroxine Sodium 75 mcg 12/26/16 06:30 01/03/17 07:00 Synthroid PO 75 mcg DAILY@0630 MARIBETH Administration Lidocaine 1 ea 12/30/16 21:00 01/03/17 10:17 Lidoderm TD 1 ea DAILY MARIBETH Administration Methylprednisolone 40 mg 12/27/16 17:45 01/03/17 10:18 Solu-Medrol IVP 40 mg Q8H MARIBETH Administration Rosuvastatin Calcium 5 mg 12/30/16 22:00 01/02/17 22:23 Crestor PO 5 mg HS MARIBETH Administration Sevelamer Carbonate 1,600 mg 12/30/16 08:00 01/02/17 16:17 Renvela PO 1,600 mg TIDCC MARIBETH Administration Tramadol HCl 25 mg 01/02/17 09:31 01/02/17 12:54 Ultram PO 25 mg Q6H PRN Administration Pain, severe (8-10) Trimethoprim/Sulfamethoxazole 2 tab 01/02/17 15:00 01/02/17 16:00 Bactrim Ds Tab PO 2 tab Q24H MARIBETH Administration - Patient Studies Lab Studies: Microbiology Studies 12/29/16 20:30 Blood Culture - Preliminary Blood NO GROWTH AFTER 4 DAYS 12/29/16 20:00 Blood Culture - Preliminary Blood NO GROWTH AFTER 4 DAYS Lab Studies 01/03/17 01/03/17 01/03/17 Range/Units 07:39 06:12 06:12 WBC 24.0 H (4.8-10.8) K/uL RBC 3.60 L (3.80-5.20) Mil/uL Hgb 11.0 (11.0-16.0) g/dL Hct 32.8 L (34.0-47.0) % MCV 91.1 (81.0-99.0) fL MCH 30.6 (27.0-31.0) pg MCHC 33.6 (33.0-37.0) g/dL RDW 16.4 H (11.5-14.5) % Plt Count 197 (130-400) K/uL MPV 8.6 (7.2-11.7) fL Neut % (Auto) 93.9 H (50.0-75.0) % Lymph % (Auto) 2.5 L (20.0-40.0) % [place] % (Auto) 3.5 (0.0-10.0) % Eos % (Auto) 0.0 (0.0-4.0) % Baso % (Auto) 0.1 (0.0-2.0) % Neut # 22.6 H (1.8-7.0) K/uL Lymph # 0.6 L (1.0-4.3) K/uL [place] # 0.8 (0.0-0.8) K/uL Eos # 0.0 (0.0-0.7) K/uL Baso # 0.0 (0.0-0.2) K/uL Neutrophils % (Manual) 91 H (50-75) % Band Neutrophils % 1 (0-2) % Lymphocytes % (Manual) 3 L (20-40) % Monocytes % (Manual) 5 (0-10) % Platelet Estimate Normal (NORMAL) Large Platelets Present Hypochromasia (manual) Slight Poikilocytosis (manual Slight Basophilic Stippling Slight Anisocytosis (manual) Slight Microcytosis (manual) Slight Ovalocytes Slight Sodium 137 (132-148) mmol/L Potassium 3.6 (3.6-5.2) mmol/L Chloride 96 L (98-107) mmol/L Carbon Dioxide 24 (22-30) mmol/L Anion Gap 21 H (10-20) BUN 51 H (7-17) mg/dL Creatinine 3.2 H (0.7-1.2) MG/DL Est GFR ( Amer) 17 Est GFR (Non-Af Amer) 14 POC Glucose (mg/dL) 270 H (65-110) mg/dL Random Glucose 237 H (65-105) mg/dL Calcium 7.4 L (8.6-10.4) mg/dl Phosphorus 4.9 H (2.5-4.5) mg/dL Magnesium 1.8 (1.6-2.3) mg/dL Total Bilirubin 0.8 (0.2-1.3) mg/dL AST 13 L (14-36) U/L ALT 38 (9-52) U/L Alkaline Phosphatase 69 (38-126) U/L Total Protein 6.1 L (6.3-8.3) g/dL Albumin 3.6 (3.5-5.0) g/dL Globulin 2.4 (2.2-3.9) gm/dL Albumin/Globulin Ratio 1.5 (1.0-2.1) 01/02/17 01/02/17 01/02/17 Range/Units 21:30 16:16 11:33 WBC (4.8-10.8) K/uL RBC (3.80-5.20) Mil/uL Hgb (11.0-16.0) g/dL Hct (34.0-47.0) % MCV (81.0-99.0) fL MCH (27.0-31.0) pg MCHC (33.0-37.0) g/dL RDW (11.5-14.5) % Plt Count (130-400) K/uL MPV (7.2-11.7) fL Neut % (Auto) (50.0-75.0) % Lymph % (Auto) (20.0-40.0) % [place] % (Auto) (0.0-10.0) % Eos % (Auto) (0.0-4.0) % Baso % (Auto) (0.0-2.0) % Neut # (1.8-7.0) K/uL Lymph # (1.0-4.3) K/uL [place] # (0.0-0.8) K/uL Eos # (0.0-0.7) K/uL Baso # (0.0-0.2) K/uL Neutrophils % (Manual) (50-75) % Band Neutrophils % (0-2) % Lymphocytes % (Manual) (20-40) % Monocytes % (Manual) (0-10) % Platelet Estimate (NORMAL) Large Platelets Hypochromasia (manual) Poikilocytosis (manual Basophilic Stippling Anisocytosis (manual) Microcytosis (manual) Ovalocytes Sodium (132-148) mmol/L Potassium (3.6-5.2) mmol/L Chloride (98-107) mmol/L Carbon Dioxide (22-30) mmol/L Anion Gap (10-20) BUN (7-17) mg/dL Creatinine (0.7-1.2) MG/DL Est GFR ( Amer) Est GFR (Non-Af Amer) POC Glucose (mg/dL) 251 H 251 H 202 H (65-110) mg/dL Random Glucose (65-105) mg/dL Calcium (8.6-10.4) mg/dl Phosphorus (2.5-4.5) mg/dL Magnesium (1.6-2.3) mg/dL Total Bilirubin (0.2-1.3) mg/dL AST (14-36) U/L ALT (9-52) U/L Alkaline Phosphatase (38-126) U/L Total Protein (6.3-8.3) g/dL Albumin (3.5-5.0) g/dL Globulin (2.2-3.9) gm/dL Albumin/Globulin Ratio (1.0-2.1) Laboratory Results - last 24 hr 01/02/17 01/02/17 01/02/17 11:33 16:16 21:30 WBC RBC Hgb Hct MCV MCH MCHC RDW Plt Count MPV Neut % (Auto) Lymph % (Auto) [place] % (Auto) Eos % (Auto) Baso % (Auto) Neut # Lymph # [place] # Eos # Baso # Neutrophils % (Manual) Band Neutrophils % Lymphocytes % (Manual) Monocytes % (Manual) Platelet Estimate Large Platelets Hypochromasia (manual) Poikilocytosis (manual Basophilic Stippling Anisocytosis (manual) Microcytosis (manual) Ovalocytes Sodium Potassium Chloride Carbon Dioxide Anion Gap BUN Creatinine Est GFR ( Amer) Est GFR (Non-Af Amer) POC Glucose (mg/dL) 202 H 251 H 251 H Random Glucose Calcium Phosphorus Magnesium Total Bilirubin AST ALT Alkaline Phosphatase Total Protein Albumin Globulin Albumin/Globulin Ratio 01/03/17 01/03/17 01/03/17 06:12 06:12 07:39 WBC 24.0 H RBC 3.60 L Hgb 11.0 Hct 32.8 L MCV 91.1 MCH 30.6 MCHC 33.6 RDW 16.4 H Plt Count 197 MPV 8.6 Neut % (Auto) 93.9 H Lymph % (Auto) 2.5 L [place] % (Auto) 3.5 Eos % (Auto) 0.0 Baso % (Auto) 0.1 Neut # 22.6 H Lymph # 0.6 L [place] # 0.8 Eos # 0.0 Baso # 0.0 Neutrophils % (Manual) 91 H Band Neutrophils % 1 Lymphocytes % (Manual) 3 L Monocytes % (Manual) 5 Platelet Estimate Normal Large Platelets Present Hypochromasia (manual) Slight Poikilocytosis (manual Slight Basophilic Stippling Slight Anisocytosis (manual) Slight Microcytosis (manual) Slight Ovalocytes Slight Sodium 137 Potassium 3.6 Chloride 96 L Carbon Dioxide 24 Anion Gap 21 H BUN 51 H Creatinine 3.2 H Est GFR ( Amer) 17 Est GFR (Non-Af Amer) 14 POC Glucose (mg/dL) 270 H Random Glucose 237 H Calcium 7.4 L Phosphorus 4.9 H Magnesium 1.8 Total Bilirubin 0.8 AST 13 L ALT 38 Alkaline Phosphatase 69 Total Protein 6.1 L Albumin 3.6 Globulin 2.4 Albumin/Globulin Ratio 1.5 Fingerstick Blood Sugar Results: 270 Review of Systems - Constitutional Constitutional: absent: Fever, Chills - EENT Eyes: UNREMARKABLE - Cardiovascular Cardiovascular: UNREMARKABLE - Respiratory Respiratory: Cough, Dyspnea, Wheezing, Pain with Coughing. absent: Hemoptysis - Gastrointestinal Gastrointestinal: UNREMARKABLE - Genitourinary Genitourinary: Voiding Freq/Small Amts (Anuria) - Musculoskeletal Musculoskeletal: Back Pain (Left flank and back) - Integumentary Integumentary: UNREMARKABLE - Neurological Neurological: UNREMARKABLE Critical Care Progress Note - Ventilator Checklist Head of Bed 30 Degrees: Yes - Vent Settings FIO2:: 70 - Extremities/Vascular Does the Patient have a Central Venous Catheter?: No Does the Patient have a Valencia Catheter?: No Does the Patient need a Valencia Catheter?: No - Prophylaxis GI Prophylaxis GI: Pepsid - Prophylaxis DVT Prophylaxis DVT: SCDs - Nutrition Nutrition: Nutrition Category Date Time Status NPO Diet [DIET] Diets 01/02/17 Dinner Active Assessment/Plan (1) CHF exacerbation Status: Acute (2) Acute kidney injury superimposed on chronic kidney disease Status: Acute (3) Anemia Status: Chronic (4) Atrial fibrillation with controlled ventricular response Status: Acute (5) HTN (hypertension) Status: Chronic (6) Leucocytosis Status: Acute (7) History of asthma Status: Acute (8) Gastritis Status: Acute (9) Diabetes 1.5, managed as type 2 Status: Chronic (10) Hypothyroidism Status: Chronic (11) Hepatitis Status: Acute (12) History of back pain Status: Acute (13) Lower extremity pain Status: Acute (14) Prophylactic measure Status: Acute - Assessment and Plan (Free Text) Assessment: 81 year old female with PMHx of COPD, severe pulm HTN, CHF, A-Fib, HTN, Anemia, DM, hypothyroidism, Gastritis, Hepatitis C (treated) presenting with SOB, shoulder pain and Acute Renal Failure. Today 01/03/17: Bone marrow biopsy performed this morning by Dr. Martinez. Portacath placement today. Chemotherapy today. HD possibly today. Neuro: Alert and oriented 3 Pulm: Acute hypoxic respiratory failure secondary to interstitial pneumonitis, seen on CT chest. COPD continue Methylprednisolone IV every 8h. Patient may need bronch with BAL/biopsy, consulted Dr. Kessler. Patient may have pulmonary invasive Myeloma (rare, chemotx will help), vs infectious etiology. - elevated LDH; Bactrim 2 tab PO daily CV: Acute on chronic decompensated diastolic heart failure, fluid removal via dialysis, NOT IMPROVING PULMONARY function/radiographic appearance. Heme: Transfused with 2 units pRBCs 9/18, multifactorial with critical illness, multiple myeloma. Will monitor. Multiple myeloma, intended treatment with Velcade and Cytoxan and Decadron. Bone marrow biopsy done today 01/03. Hem/Onc, Dr. Martinez, following plan to start chemotherapy today after Portacath placement. Renal: acute renal failure requiring Daily dialysis for fluid removal. Endo: DM type II, regular insulin sliding scale for coverage, Glucotrol. Hypothyroidism, continue levothyroxine. GI: Diabetic diet, Glipizide 10 mg PO daily, Insulin ID: Possible pneumonia, continue antibiotics (active since 12/25): doxycycline and Zosyn. Msk: back pain, chronic - Tramadol 25 mg PO Q6 prn - Lidoderm patch daily DVT proph - heparin subcutaneous GI proph - Pepcid valencia for strict I/O's during acute illness Code status - full code <Pepe Kessler S - Last Filed: 02/14/17 13:24> Critical Care Progress Note - Nutrition Nutrition: Nutrition Category Date Time Status Renal Diet [DIET] Diets 01/03/17 Lunch Active Assessment/Plan (1) COPD (chronic obstructive pulmonary disease) Status: Acute (2) Pulmonary hypertension Status: Acute (3) Anemia Status: Acute (4) CHF (congestive heart failure) Status: Acute (5) Acute kidney injury Status: Acute Attending/Attestation - Attestation I have personally seen and examined this patient.: Yes I have fully participated in the care of the patient.: Yes I have reviewed all pertinent clinical information: Yes Notes (Text): Patient seen and examined. Case discussed with house staff in the morning rounds. Bone marrow biopsy performed this morning by Dr. Martinez. Portacath placement today. Chemotherapy today. HD possibly today
[2017-01-03] MEDS ORDERED: Sodium Chloride 0.9% 500 ML IV ONE (11:20)
--- NOTE | 2017-01-03 12:42 | RAD ---
PROCEDURE: CHEST RADIOGRAPH, 1 VIEW HISTORY: intubated- examine infiltrates COMPARISON: Comparison is made to 12/30/2016 FINDINGS: LUNGS: Interval significant improvement in the lungs since the previous exam. Residual small opacities at the left lower lung. PLEURA: Blunting of the right costophrenic angle. CARDIOVASCULAR: The cardiac silhouette is mildly enlarged. OSSEOUS STRUCTURES: No significant abnormalities. VISUALIZED UPPER ABDOMEN: Normal. OTHER FINDINGS: Right-sided hemodialysis catheter seen in place. IMPRESSION: Interval significant improvement in the lungs since the previous exam.
--- NOTE | 2017-01-03 12:50 | PCM.SURG1 ---
Surgeon's Initial Post Op Note - Surgeon's Notes Surgeon: Dr. Ontiveros Secure Software Assessor: Dago PGY1 Type of Anesthesia: General Mask Anesthesia Administered By: Dr. Ch Pre-Operative Diagnosis: Multiple Myeloma Operative Findings: see operative report Post-Operative Diagnosis: Multiple Myeloma Operation Performed: Insertion of tunneled central venous catheter with double port Specimen/Specimens Removed: N/A Estimated Blood Loss: EBL {In ML}: 3 Blood Products Given: N/A Drains Used: No Drains Post-Op Condition: Good Date of Surgery/Procedure: 01/03/17 Time of Surgery/Procedure: 12:50
--- NOTE | 2017-01-03 13:28 | CP.PCM.PN ---
Subjective - Date & Time of Evaluation Date of Evaluation: 01/03/17 Time of Evaluation: 13:25 - Subjective Subjective: s/p dialysis 01/02 permcath previously placed; s/p portacath insertion now less dyspneic still rather weak hypercalcemia corrected BM bx done Objective - Vital Signs/Intake and Output Vital Signs (last 24 hours): Temp Pulse Resp BP Pulse Ox 97.8 F 75 18 130/51 L 99 01/03/17 08:00 01/03/17 07:00 01/03/17 11:13 01/03/17 06:53 01/03/17 07:00 Intake and Output: 01/03/17 01/03/17 06:59 18:59 Intake Total 200 0 Output Total 0 0 Balance 200 0 - Medications Medications: Current Medications Acyclovir (Zovirax) 400 mg PO DAILY [facility] Last Admin: 01/03/17 10:32 Dose: 400 mg Albuterol/Ipratropium (Duoneb 3 Mg/0.5 Mg (3 Ml) Ud) 3 ml INH RQ6 [facility] Last Admin: 01/03/17 07:38 Dose: 3 ml Famotidine (Pepcid) 20 mg PO DAILY [facility] Last Admin: 01/03/17 10:18 Dose: 20 mg Ferrous Sulfate (Feosol) 325 mg PO DAILY [facility] Last Admin: 01/03/17 10:18 Dose: 325 mg Glipizide (Glucotrol) 10 mg PO DAILY [facility] Last Admin: 01/03/17 10:24 Dose: 10 mg Heparin Sodium (Porcine) (Heparin) 5,000 units SC Q12 [facility] Last Admin: 12/31/16 21:01 Dose: 5,000 units Piperacillin Sod/Tazobactam Sod (Zosyn 2.25 Gm Iv Premix) 2.25 gm in 50 mls @ 100 mls/hr IVPB Q8H [facility] Last Admin: 01/03/17 06:00 Dose: 100 mls/hr Doxycycline Hyclate 100 mg/ (Sodium Chloride) 100 mls @ 100 mls/hr IVPB Q12H [facility] Last Admin: 01/03/17 10:27 Dose: 100 mls/hr Insulin Human Regular (Novolin R) 0 unit SC ACHS [facility] PRN Reason: Protocol Last Admin: 01/03/17 09:39 Dose: 6 unit Levothyroxine Sodium (Synthroid) 75 mcg PO DAILY@0630 [facility] Last Admin: 01/03/17 07:00 Dose: 75 mcg Lidocaine (Lidoderm) 1 ea TD DAILY [facility] Last Admin: 01/03/17 10:43 Dose: Not Given Methylprednisolone (Solu-Medrol) 40 mg IVP Q8H [facility] Last Admin: 01/03/17 10:18 Dose: 40 mg Rosuvastatin Calcium (Crestor) 5 mg PO HS [facility] Last Admin: 01/02/17 22:23 Dose: 5 mg Sevelamer Carbonate (Renvela) 1,600 mg PO TIDCC [facility] Last Admin: 01/03/17 12:12 Dose: Not Given Tramadol HCl (Ultram) 25 mg PO Q6H PRN PRN Reason: Pain, severe (8-10) Last Admin: 01/02/17 12:54 Dose: 25 mg Trimethoprim/Sulfamethoxazole (Bactrim Ds Tab) 2 tab PO Q24H [facility] Last Admin: 01/02/17 16:00 Dose: 2 tab - Labs Labs: 01/03/17 06:12 01/03/17 06:12 PT 13.1 SECONDS (9.7-12.2) H 12/26/16 08:05 INR 1.2 12/26/16 08:05 APTT 27 SECONDS (21-34) 01/01/17 06:00 - Constitutional Appears: No Acute Distress, Chronically Ill - Head Exam Head Exam: ATRAUMATIC, NORMAL INSPECTION - Eye Exam Eye Exam: EOMI, Normal appearance - Neck Exam Neck Exam: Normal Inspection, Tenderness - Respiratory Exam Respiratory Exam: Clear to Ausculation Bilateral, Respiratory Distress - Cardiovascular Exam Cardiovascular Exam: REGULAR RHYTHM, +S1 - GI/Abdominal Exam GI & Abdominal Exam: Soft. absent: Tenderness - Extremities Exam Extremities Exam: Normal Inspection. absent: Pedal Edema - Neurological Exam Neurological Exam: Alert, CN II-XII Intact - Skin Skin Exam: Dry, Warm Assessment and Plan (1) MARIA EUGENIA (acute kidney injury) Status: Acute (2) CHF (congestive heart failure) Status: Acute (3) Hypercalcemia Status: Acute - Assessment and Plan (Free Text) Plan: Reschedule dialysis in AM Await rx for paraproteinemia
--- NOTE | 2017-01-03 15:02 | RAD ---
HISTORY: s/p port COMPARISON: Comparison is made to the previous study dated 01/03/2017 FINDINGS: LUNGS: Interval worsening of pulmonary vascular congestion since the previous exam. Otherwise no significant interval change. PLEURA: No evidence of significant pleural effusion or pneumothorax. CARDIOVASCULAR: The cardiac silhouette is enlarged. OSSEOUS STRUCTURES: No significant abnormalities. VISUALIZED UPPER ABDOMEN: Normal. OTHER FINDINGS: Interval insertion of left-sided Port-A-Cath since the previous exam. Again seen is right-sided hemodialysis catheter in place. IMPRESSION: Interval insertion of left-sided Port-A-Cath which is seen at appropriate position . Mild pulmonary vascular congestion.
[2017-01-03] MEDS: Tmp-Smz 800 mg-160 mg DS Tab PO SCH (16:00)
--- NOTE | 2017-01-03 18:57 | CP.PCM.PN ---
Subjective - Date & Time of Evaluation Date of Evaluation: 01/03/17 Time of Evaluation: 18:45 - Subjective Subjective: Hospitalist Progress Note Patient was seen and examined at 6:45 PM 01/03/17 Please see Assessment and Plans below for details Upon ROS NO chest pain SOB/Breathing is better on the HiFlow Oxygen Eating but not as much as before as she states that she gets nauseous NO burning with urination but states that she is not urinating a lot Still complains of low back pain NO other complaints - Constitutional Appears: In Acute Distress, Chronically Ill - Head Exam Head Exam: NORMAL INSPECTION - Eye Exam Eye Exam: EOMI, Pupils are round, equal, reactive to light/accomodation - ENT Exam ENT Exam: Mucous Membranes Dry - Respiratory Exam Respiratory Exam: Decreased Breath Sounds, Course breath sounds throughout absent: Rales, Rhonchi, Stridor - Cardiovascular Exam Cardiovascular Exam: RRR, +S1, +S2 - GI/Abdominal Exam GI & Abdominal Exam: Soft, Normal Bowel Sounds. absent: Distended, Firm, Guarding, Rigid, Tenderness, Rebound - Extremities Exam Extremities Exam: Normal Capillary Refill. absent: Pedal Edema, Tenderness - Neurological Exam Neurological Exam: Alert, Awake, Oriented x3 - Psychiatric Exam Psychiatric exam: Normal Affect, Normal Mood - Skin Skin Exam: Dry, Intact, Normal Color, Warm Assessment and Plan - Assessment and Plan (Free Text) Assessment: (1) Acute Respiratory Distress Assessment and Plan: * Patient has history of COPD per pulmonary * Patient requires max oxygen support per ICU * CT Chest (12/31): interval worsening of nonspecific ground glass opacities in the lungs since the previous exam. Interstitial septal thickening and crazy paving appearance of the lungs. Mild cardiomegaly. Small left pleural effusion. Diffuse lytic bone lesion consistent with multiple myeloma * Solumedrol 40mg IV Q 8 hours * Will need BAL/Bronch to see if patient has invasive myeloma to the lung-->ICU has discussed with patient's pulm 12/31 (2) Fluid Overload Assessment and Plan: * ProBNP today: 92439 * Contributing factors: acute on chronic kidney disease and hx of diastolic congestive heart failure * Vascular Surgery: Dr. Ontiveros-->notified by emergency room; for emergent dialysis access * Nephrology: Dr Bill on board-->acute on chronic kidney insufficiency, hypercalcemia; emergent dialysis * Chest Xray (12/25/16): prominent diffuse increased interstital lung markings throughout both lungs suggestive for edema and/or infiltrate * Chest Xray (12/27/16): persistent prominent diffuse increased consolidative changes throughtout both lungs with coarse reticular interstital airspce opacities. More focal confluent airspace consolidative changes in the right right midlung zone and left lung base with small left plueral effusion. Cardiomegaly * Echocardiogram (12/27/16) moderate left ventricular diastolic dysfunction. left atrium is moderately dilated. right atrium is mildly dilated, mitral annular calcification is moderate. mitral velve is calcified and displays decreased opening. Mild mitral valve stenosis. severe pulmonary hypertension., EF: 60% * Monitor intake output * Daily weights * 12/27/16: 2nd dialysis session today--> 2 liters removed * 12/28/16: Spoke with Dr. Bill-->dialysis for tomorrow; pending chest xray read * 12/29/16: stable heterogenous infiltrates are seen diffusely bilaterally and are unchanged compared to 12/28/16 prominent cardiac silhouteete is stable. Fractures at the left 3rd, 6th, and 9th ribs identified at latter stage of healing * 12/30/16: Had dialysis today * 12/31/16: Dialysis not improving lung exam (3) Acute kidney injury superimposed on chronic kidney disease Assessment and Plan: * Nephrology Dr. Bill consulted-->help appreciated * Hepatitis panel: Negative * HIV: negative * Mycoplasma Igm: negative * Legionella; Negative * Vascular Surgery: Dr. 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 * Recommended for SPEP, IPEP--->pending * free light chain lambda: 744631.7 * free light chain kappa: 17.5 * 24 hr urine UPEP-->resulting--> 2108 (high) * urine IPE * beta2 microglobulin * LDH: 522 * Prior SPEP: (12/02/16): M Adarsh migrating in the gamma globulin region; 12/25 : M spike * immuonfixation: pending * BUN/Cr elevated today: 90/7.7 * 12/25 Urinanalysis: +leuk esterase, 2+ protein, + Wbc and + RBC * urine culture: no growth (<1000 CFU/ml) * Ct Abdomen/Pelvis (12/25/16): No evidence of nephrolithiasis or hydronephrosis , 1,5 cm exophyitc high attentuation lesion at the mid to lower pole of right kidney. possibility of renal cell carcinoma should be excluded. 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 Airspace consolidation at left lobe associated with small pleural fussion suspicious for pneumonia * HD through 01/01 * Nephrology to schedule HD for morning 01/04/17 Status: Acute (4) Possible Multiple Myeloma Assessment and Plan: * Criteria: anemia, renal insufficiency, hypercalcemia * Nephrology Dr. Bill consulted-->help appreciated * Vascular Surgery: Dr. Ontiveros-->help appreciated * Surgery consulted and permacath placed * Heme-Oncology: Dr Martinez-->help appreciated * Possible patient has light chain multiple myeloma * free light chain lambda: 020098.7 * free light chain kappa: 17.5 * 24 hr urine UPEP--> 2108 (high) * urine IPE--->--->pending * beta2 microglobulin--->--->pending * LDH: 522 * Prior SPEP: (12/02/16): M Adarsh migrating in the gamma globulin region; 12/25 : M spike * 12/27: discussed with Dr. Martinez, patient's for bone marrow biopsy for Sunday and possible start chemotherapy. * Echocardiogram (12/27/16) moderate left ventricular diastolic dysfunction. left atrium is moderately dilated. right atrium is mildly dilated, mitral annular calcification is moderate. mitral valve is calcified and displays decreased opening. Mild mitral valve stenosis. severe pulmonary hypertension., EF: 60% * Monitor intake output * BUN/Cr elevated today: 90/7.7 * 12/25 Urinanalysis: +leuk esterase, 2+ protein, + Wbc and + RBC * urine culture: no growth (<1000 CFU/ml) * Ct Abdomen/Pelvis (12/25/16): No evidence of nephrolithiasis or hydronephrosis , 1,5 cm exophyitc high attentuation lesion at the mid to lower pole of right kidney. possibility of renal cell carcnioma should be excluded. 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 Airspace consolidation at left lobe associated with small pleural fussion suspicious for pneumonia * Chest xray w rib (12/29/16): stable heterogenous infiltrates are seen diffusely bilaterally and are unchanged compared to 12/28/16 prominent cardiac silhouette is stable. Fractures at the left 3rd, 6th, and 9th ribs identified at latter stage of healing * 12/30: Heme-onc unable to do bone marrow biopsy because of patient's shortness of breathe; reports does not need bone marrow biopsy at this time; recommend for port a cath * 12/31: given possibility of invasive myeloma to the lung; may need bronch/bal for diagnosis * 01/02: patient is for Angela Cath placement on Sunday01/04/17 * 01/03: patient had Angela Cath placed and had Bone Marrow Biopsy by Dr. Martinez Status: Acute (5) Hypercalcemia Assessment and Plan: * Likely secondary to Multiple Myeloma * Nephrology (Dr. Bill) on board-->help appreciated * Heme-onc (Dr. Martinez) on board--->help appreciated * Bone marrow biopsy not performed and awaiting performance of broanchial wash/ lavage * PTH related Protein: pending * PTH intact: 14 * Vitamin D: 66.6 * ОЛЕГ: 28 * Ionized Calcium: 6.7 * Possible patient has light chain multiple myeloma * Recommended for SPEP, IPEP--->pending * free light chain lambda: 633005.7 * free light chain kappa: 17.5 * 24 hr urine UPEP--> 2108 (high) * urine IPE--->--->pending * beta2 microglobulin--->--->pending * LDH: 522 * Prior SPEP: (12/02/16): M Adarsh migrating in the gamma globulin region; 12/25 : M spike Status: Acute (6) Possible CHF exacerbation Assessment and Plan: * History of diastolic congestive heart failure * Cardiology (Dr. Little) on consult; covering for Dr. Lynch's patients * ProBNP today: 15374 * Echocardiogram (12/27/16) moderate left ventricular diastolic dysfunction. left atrium is moderately dilated. right atrium is mildly dilated, mitral annular calcification is moderate. mitral valve is calcified and displays decreased opening. Mild mitral valve stenosis. severe pulmonary hypertension., EF: 60% * monitor intake and output * Patient has acute renal failure unable to start ARB/ОЛЕГ * Patient's blood pressure is normotensive w/o beta-vania * Start Crestor 5mg POqHS * Used to be on Cardizem prior hospitalization but off * Daily Weights Status: Acute (7) Anemia Assessment and Plan: * Heme-onc (Dr. Martinez) on board-->help appreciated * Discussed with PMD: Dr. Winkler-->patient has had workup including GI workup in 2017 in regards to anemia * Thought to be chronic secondary to kidney disease; anemia of critical disease * Continue home meds Ferrous sulfate 325 mg daily * s/p 1 unit of PRBC on 12/25 7.2 * 12/25 stool occult blood: negative * Prior hospitalizations included in patient's chart; awaiting copy of report of GI workup * 01/01: received 2 units PRBC for Hgb<6 * 01/02: Hgb improved > 9: monitor * 01/03: HgB at 11 Status: Chronic (8) Atrial fibrillation Assessment and Plan: * Cardiology (Dr. Little) covering for Dr. Lynch's patients * Continue home meds: Amiodarone 200 mg daily, Cardizem 240 mg daily * Patient is not on anticoagulation secondary to anemia * CHADS: 4 (DM, Age, HTN, CHF) * HASBLED:2 (Age and Renal Disease) Status: Acute (9) HTN (hypertension) Assessment and Plan: * Monitor vital signs * Patient is on dialysis secondary to MARIA EUGENIA secondary to Multiple Myeloma Status: Chronic (10) Leukocytosis Assessment and Plan: * In the ED, order for dose of Zosyn and Vancomycin on 12/25 * Strep, legionella: negative and mycoplasma IgM: negative * Patient recently at the hospital within 90 days-->consideration for possible hospital acquired pneumonia * Patient does not meet sepsis critera (04/19: leukocytosis) * Start Zosyn 2.25 gr IV Q8H (active since 12/25/16) and Doxcycline 100mg IV Q 12hours (active since 12/25/16) * Blood Culture (12/25/16): no growth after 5 days X 2 * Urine culture (12/25/16): <1000 * Procalcitonin low * Blood Culture (12/29/16): no growth after 3 days x 2 * Start on Solumedrol 40mg IV Q 8 hours per pulmonary (active since 12/27/16) * 01/02: currently on Zozyn 2.25 gm IV Q8H and Doxycycline 100 mg IV Q12H and Bactrim DS 2 tab PO Q24 H (01/02/17: to cover for PCP) * 01/03: started on Zovirax 400 mg PO 1x/day by Heme/Onc Dr. 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, managed as type 2 Assessment and Plan: * Continue home meds: Glipizide 10 mg daily * daily Accuchecks QAC and HS * [id number]: 6.1 Status: Chronic (14) Hypothyroidism Status: Chronic * TSH: 4.84 * Levothyroxine 75mcg/day Status: Chronic (15) Hepatitis Assessment and Plan: * RUQ pain will f/u Amylase, lipase which are normal * LFTs are normal Status: Chronic (16) History of back pain Assessment and Plan: * held Magnesium oxide 400 mg BID * Tramadol 25 mg 1 tablet Q6hr for break through pain ordered 01/02 * On Lidoderm patch * likely secondary to lytic lesion likely secondary to Multiple Myeloma Status: Acute (17) Lower extremity pain Assessment and Plan: * Held Magnesium oxide 400 mg BID; Tramadol-Acetaminophen 32.5-325 mg 2 tablets Q6hr Status: Acute (18) Prophylactic measure Assessment and Plan: * DVT: SCDs b/l; heparin 5000 units subq12 * GI: Pepcid 20mg PO daily * Monitor intake and output * Daily Weight * PT/OT eval Status: Acute 01/03/17: I updated the patient's Brother and [id number]-Rsq who were at the bedside Mook Penn D.O. Objective - Vital Signs/Intake and Output Vital Signs (last 24 hours): Temp Pulse Resp BP Pulse Ox 97.8 F 80 16 109/51 L 98 01/03/17 08:00 01/03/17 17:03 01/03/17 17:03 01/03/17 17:03 01/03/17 17:03 Intake and Output: 01/03/17 01/03/17 06:59 18:59 Intake Total 200 0 Output Total 0 0 Balance 200 0 - Medications Medications: Current Medications Acyclovir (Zovirax) 400 mg PO DAILY [facility] Last Admin: 01/03/17 10:32 Dose: 400 mg Albuterol/Ipratropium (Duoneb 3 Mg/0.5 Mg (3 Ml) Ud) 3 ml INH RQ6 [facility] Last Admin: 01/03/17 13:38 Dose: 3 ml Famotidine (Pepcid) 20 mg PO DAILY [facility] Last Admin: 01/03/17 10:18 Dose: 20 mg Ferrous Sulfate (Feosol) 325 mg PO DAILY [facility] Last Admin: 01/03/17 10:18 Dose: 325 mg Glipizide (Glucotrol) 10 mg PO DAILY [facility] Last Admin: 01/03/17 10:24 Dose: 10 mg Heparin Sodium (Porcine) (Heparin) 5,000 units SC Q12 [facility] Last Admin: 12/31/16 21:01 Dose: 5,000 units Piperacillin Sod/Tazobactam Sod (Zosyn 2.25 Gm Iv Premix) 2.25 gm in 50 mls @ 100 mls/hr IVPB Q8H [facility] Last Admin: 01/03/17 16:02 Dose: 100 mls/hr Doxycycline Hyclate 100 mg/ (Sodium Chloride) 100 mls @ 100 mls/hr IVPB Q12H [facility] Last Admin: 01/03/17 10:27 Dose: 100 mls/hr Insulin Human Regular (Novolin R) 0 unit SC ACHS [facility] PRN Reason: Protocol Last Admin: 01/03/17 16:28 Dose: 12 unit Levothyroxine Sodium (Synthroid) 75 mcg PO DAILY@0630 [facility] Last Admin: 01/03/17 07:00 Dose: 75 mcg Lidocaine (Lidoderm) 1 ea TD DAILY [facility] Last Admin: 01/03/17 10:43 Dose: Not Given Methylprednisolone (Solu-Medrol) 40 mg IVP Q8H [facility] Last Admin: 01/03/17 18:38 Dose: 40 mg Rosuvastatin Calcium (Crestor) 5 mg PO HS [facility] Last Admin: 01/02/17 22:23 Dose: 5 mg Sevelamer Carbonate (Renvela) 1,600 mg PO TIDCC [facility] Last Admin: 01/03/17 18:39 Dose: 1,600 mg Tramadol HCl (Ultram) 25 mg PO Q6H PRN PRN Reason: Pain, severe (8-10) Last Admin: 01/02/17 12:54 Dose: 25 mg Trimethoprim/Sulfamethoxazole (Bactrim Ds Tab) 2 tab PO Q24H [facility] Last Admin: 01/03/17 16:00 Dose: 2 tab - Labs Labs: 01/03/17 06:12 01/03/17 06:12 PT 13.1 SECONDS (9.7-12.2) H 12/26/16 08:05 INR 1.2 12/26/16 08:05 APTT 27 SECONDS (21-34) 01/01/17 06:00
--- NOTE | 2017-01-03 21:04 | CP.PCM.PN ---
Subjective - Date & Time of Evaluation Date of Evaluation: 01/03/17 Time of Evaluation: 05:15 - Subjective Subjective: dictated Objective - Vital Signs/Intake and Output Vital Signs (last 24 hours): Temp Pulse Resp BP Pulse Ox 98.7 F 78 15 110/45 L 97 01/03/17 20:00 01/03/17 20:49 01/03/17 20:49 01/03/17 20:49 01/03/17 20:49 Intake and Output: 01/03/17 01/04/17 18:59 06:59 Intake Total 470 25 Output Total 0 Balance 470 25 - Medications Medications: Current Medications Acyclovir (Zovirax) 400 mg PO DAILY [facility] Last Admin: 01/03/17 10:32 Dose: 400 mg Albuterol/Ipratropium (Duoneb 3 Mg/0.5 Mg (3 Ml) Ud) 3 ml INH RQ6 [facility] Last Admin: 01/03/17 19:49 Dose: 3 ml Famotidine (Pepcid) 20 mg PO DAILY [facility] Last Admin: 01/03/17 10:18 Dose: 20 mg Ferrous Sulfate (Feosol) 325 mg PO DAILY [facility] Last Admin: 01/03/17 10:18 Dose: 325 mg Glipizide (Glucotrol) 10 mg PO DAILY [facility] Last Admin: 01/03/17 10:24 Dose: 10 mg Heparin Sodium (Porcine) (Heparin) 5,000 units SC Q12 [facility] Last Admin: 12/31/16 21:01 Dose: 5,000 units Piperacillin Sod/Tazobactam Sod (Zosyn 2.25 Gm Iv Premix) 2.25 gm in 50 mls @ 100 mls/hr IVPB Q8H [facility] Last Admin: 01/03/17 16:02 Dose: 100 mls/hr Doxycycline Hyclate 100 mg/ (Sodium Chloride) 100 mls @ 100 mls/hr IVPB Q12H [facility] Last Admin: 01/03/17 10:27 Dose: 100 mls/hr Insulin Human Regular (Novolin R) 0 unit SC ACHS [facility] PRN Reason: Protocol Last Admin: 01/03/17 16:28 Dose: 12 unit Levothyroxine Sodium (Synthroid) 75 mcg PO DAILY@0630 [facility] Last Admin: 01/03/17 07:00 Dose: 75 mcg Lidocaine (Lidoderm) 1 ea TD DAILY [facility] Last Admin: 01/03/17 10:43 Dose: Not Given Methylprednisolone (Solu-Medrol) 40 mg IVP Q8H [facility] Last Admin: 01/03/17 18:38 Dose: 40 mg Rosuvastatin Calcium (Crestor) 5 mg PO HS [facility] Last Admin: 01/02/17 22:23 Dose: 5 mg Sevelamer Carbonate (Renvela) 1,600 mg PO TIDCC [facility] Last Admin: 01/03/17 18:39 Dose: 1,600 mg Tramadol HCl (Ultram) 25 mg PO Q6H PRN PRN Reason: Pain, severe (8-10) Last Admin: 01/02/17 12:54 Dose: 25 mg Trimethoprim/Sulfamethoxazole (Bactrim Ds Tab) 2 tab PO Q24H [facility] Last Admin: 01/03/17 16:00 Dose: 2 tab - Labs Labs: 01/03/17 06:12 01/03/17 06:12 PT 13.1 SECONDS (9.7-12.2) H 12/26/16 08:05 INR 1.2 12/26/16 08:05 APTT 27 SECONDS (21-34) 01/01/17 06:00
--- NOTE | 2017-01-03 21:47 | PN ---
SUBJECTIVE: The patient sitting with oxygen. She said she was less short of breath. She was feeling slightly better. She had a tunneled catheter placed in on the left chest wall and her family members were with her and she is getting ready for chemotherapy, I am told and she also had a bone marrow done as she does have multiple myeloma and they are confirming. PHYSICAL EXAMINATION: VITAL SIGNS: T-max is 98.6, pulse 89, blood pressure 106/46, respirations are 19. GENERAL: She is awake, alert, is less dyspneic now and has been on dialysis. LUNGS: Clear. No crackles or rales present. Occasional rhonchi. HEART: S1, S2 is regular. No murmurs appreciated. ABDOMEN: Soft, nontender. No guarding, no rigidity present. EXTREMITIES: No edema or clubbing. Actually, she has been started on acyclovir also and she remains on Zosyn and doxycycline at this time. LABORATORY DATA: Labs are noted. Labs shows white count is 24, hemoglobin 11, hematocrit 32.8, platelet count is 197, so they have increased actually, white count, but I have detected if she is on any steroids, she is on prednisone q. 8 hours at this time and probably, she will need myeloma therapy. Her chest x-ray today shows interval insertion of left-sided Port-A-Cath which is seen at appropriate position, mild pulmonary vascular congestion. MEDICATIONS: She is on Zosyn, we started on 11th, so 20th, 10 days; we will probably cut it out and leave the doxycycline on if the white count starts to grow a little bit unless it is totally due to steroids. We have put her on Bactrim also already for the prophylaxis, so then we will cut off the other antibiotics and leave her on Bactrim and acyclovir once her white count has little bit improved. IMPRESSION: She has renal failure, pneumonia, congestive heart failure and multiple myeloma. Pau Thakkar MD
--- NOTE | 2017-01-03 22:04 | CP.PCM.PN ---
Subjective - Date & Time of Evaluation Date of Evaluation: 01/03/17 Time of Evaluation: 09:10 - Subjective Subjective: Patient seen and evaluated More relaxed and comfortable Physical Exam - Constitutional Appears: Dyspnea - Head Exam Head Exam: ATRAUMATIC, NORMAL INSPECTION, NORMOCEPHALIC - Eye Exam Eye Exam: EOMI, Normal appearance, PERRL - ENT Exam ENT Exam: Mucous Membranes Moist - Neck Exam Neck exam: Positive for: Normal Inspection. Negative for: Thyromegaly - Respiratory Exam Respiratory Exam: Decreased Breath Sounds. absent: Accessory Muscle Use - Cardiovascular Exam Cardiovascular Exam: REGULAR RHYTHM, +S1, +S2. absent: JVD - GI/Abdominal Exam GI & Abdominal Exam: Hypoactive Bowel Sounds, Tenderness - Extremities Exam Extremities exam: Positive for: pedal edema, pedal pulses present - Neurological Exam Neurological exam: Alert, CN II-XII Intact, Oriented x3 - Psychiatric Exam Psychiatric exam: Normal Affect, Normal Mood - Skin Skin Exam: Dry, Intact, Normal Color, Warm Objective - Vital Signs/Intake and Output Vital Signs (last 24 hours): Temp Pulse Resp BP Pulse Ox 98.7 F 77 17 110/45 L 95 01/03/17 20:00 01/03/17 21:00 01/03/17 21:30 01/03/17 20:49 01/03/17 21:00 Intake and Output: 01/03/17 01/04/17 18:59 06:59 Intake Total 470 25 Output Total 0 Balance 470 25 - Medications Medications: Current Medications Acyclovir (Zovirax) 400 mg PO DAILY [facility] Last Admin: 01/03/17 10:32 Dose: 400 mg Albuterol/Ipratropium (Duoneb 3 Mg/0.5 Mg (3 Ml) Ud) 3 ml INH RQ6 [facility] Last Admin: 01/03/17 19:49 Dose: 3 ml Famotidine (Pepcid) 20 mg PO DAILY [facility] Last Admin: 01/03/17 10:18 Dose: 20 mg Ferrous Sulfate (Feosol) 325 mg PO DAILY [facility] Last Admin: 01/03/17 10:18 Dose: 325 mg Glipizide (Glucotrol) 10 mg PO DAILY [facility] Last Admin: 01/03/17 10:24 Dose: 10 mg Heparin Sodium (Porcine) (Heparin) 5,000 units SC Q12 [facility] Last Admin: 12/31/16 21:01 Dose: 5,000 units Piperacillin Sod/Tazobactam Sod (Zosyn 2.25 Gm Iv Premix) 2.25 gm in 50 mls @ 100 mls/hr IVPB Q8H [facility] Last Admin: 01/03/17 16:02 Dose: 100 mls/hr Doxycycline Hyclate 100 mg/ (Sodium Chloride) 100 mls @ 100 mls/hr IVPB Q12H [facility] Last Admin: 01/03/17 21:33 Dose: 100 mls/hr Insulin Human Regular (Novolin R) 0 unit SC ACHS [facility] PRN Reason: Protocol Last Admin: 01/03/17 16:28 Dose: 12 unit Levothyroxine Sodium (Synthroid) 75 mcg PO DAILY@0630 [facility] Last Admin: 01/03/17 07:00 Dose: 75 mcg Lidocaine (Lidoderm) 1 ea TD DAILY [facility] Last Admin: 01/03/17 10:43 Dose: Not Given Methylprednisolone (Solu-Medrol) 40 mg IVP Q8H [facility] Last Admin: 01/03/17 18:38 Dose: 40 mg Rosuvastatin Calcium (Crestor) 5 mg PO HS [facility] Last Admin: 01/03/17 21:33 Dose: 5 mg Sevelamer Carbonate (Renvela) 1,600 mg PO TIDCC [facility] Last Admin: 01/03/17 18:39 Dose: 1,600 mg Tramadol HCl (Ultram) 25 mg PO Q6H PRN PRN Reason: Pain, severe (8-10) Last Admin: 01/02/17 12:54 Dose: 25 mg Trimethoprim/Sulfamethoxazole (Bactrim Ds Tab) 2 tab PO Q24H [facility] Last Admin: 01/03/17 16:00 Dose: 2 tab - Labs Labs: 01/03/17 06:12 01/03/17 06:12 PT 13.1 SECONDS (9.7-12.2) H 12/26/16 08:05 INR 1.2 12/26/16 08:05 APTT 27 SECONDS (21-34) 01/01/17 06:00 Assessment and Plan - Assessment and Plan (Free Text) Assessment: (1) Atrial fibrillation Assessment and Plan: * Continue home meds: Amiodarone 200 mg daily, Cardizem 240 mg daily * Patient is not on anticoagulation secondary to anemia * CHADS: 4 (DM, Age, HTN, CHF) * HASBLED:2 (Age and Renal Disease) Status: Acute Not on AC due to low Hgb Check stool guiac Start Heparin IV once Hgb above 9 and guiac negative (2) Acute kidney injury superimposed on chronic kidney disease Assessment and Plan: * Nephrology Dr. Bill consulted-->help appreciated * Vascular Surgery: Dr. Ontiveros-->help appreciated * Surgery consulted; tunneled dialysis catheter placed 12/25; f * Heme-Oncology: Dr Martinez-->help appreciated * Possible patient has light chain multiple myeloma * Recommended for SPEP, IPEP, free light chain lambda, free light chain kappa, 24 hr urine UPEP, urine IPEP, beta2 microglobulin, and LDH-->pending * Prior SPEP: (12/02/16): M Adarsh migrating in the gamma globulin region * BUN/Cr elevated today: 90/7.7 * 12/25 Urinanalysis: +leuk esterase, 2+ protein, + Wbc and + RBC * f/u urine culture-->pending * Ct Abdomen/Pelvis (12/25/16): No evidence of nephrolithiasis or hydronephrosis , 1,5 cm exophyitc high attentuation lesion at the mid to lower pole of right kidney. possibility of renal cell carcnioma should be excluded. 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 Airspace consolidation at left lobe associated with small pleural fussion suspicious for pneumonia Status: Acute (3) Possible Multiple Myeloma Assessment and Plan: * Criteria: anemia, renal insufficiency, hypercalcemia * Nephrology Dr. Bill consulted-->help appreciated * Vascular Surgery: Dr. Ontiveros-->help appreciated * Surgery consulted and will place permacath with plan for HD today * Heme-Oncology: Dr Martinez-->help appreciated * Possible patient has light chain multiple myeloma * Recommended for SPEP, IPEP, free light chain lambda, free light chain kappa, 24 hr urine UPEP, urine IPEP, beta2 microglobulin, and LDH-->pending * BUN/Cr elevated today: 90/7.7 * 12/25 Urinanalysis: +leuk esterase, 2+ protein, + Wbc and + RBC * f/u urine culture-->pending * Ct Abdomen/Pelvis (12/25/16): No evidence of nephrolithiasis or hydronephrosis , 1,5 cm exophyitc high attentuation lesion at the mid to lower pole of right kidney. possibility of renal cell carcnioma should be excluded. 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 Airspace consolidation at left lobe associated with small pleural fussion suspicious for pneumoni Status: Acute (4) Diastolic CHF Assessment and Plan: * History of diastolic congestive heart failure * Cardiology (Dr. Little) on consult; covering for Dr. Lynch's patients * ProBNP today: 72721 * 06/28/16 Echo showed EF of 83% with borderline concentric LVH. Mild-moderate mitral regurgitation * 12/01 EKG: normal, NSR * monitor intake and output * Daily Weights Status: Acute Prior cath: Non obstructive (5) Anemia Assessment and Plan: * Heme-onc (Dr. Martinez) on board-->help appreciated * Discussed with PMD: Dr. Winkler-->patient has had workup including GI workup in 2017 in regards to anemia * Thought to be chronic secondary to kidney disease * Continue home meds Ferrous sulfate 325 mg daily * s/p 1 unit of PRBC on 12/25 7.2 * 12/25 stool occult blood: negative * Prior hospitalizations included in patient's chart; awaiting copy of report of GI workup Status: Chronic (6) HTN (hypertension) Assessment and Plan: * Monitor vital signs * Restart Amiodarone 200mg PO daily and Cardizem 240mg PO daily Status: Chronic (7) Leukocytosis Assessment and Plan: * In the ED, order for dose of Zosyn and Vancomycin on 12/25 * Difficult to discern if patient has pneumonia given she is also appears fluid overload * Post dialysis chest xray 12/26 * Strep, legionella: negative and mycoplasma IgM: negative * Patient recently at the hospital within 90 days-->consideration for possible hospital acquired pneumonia * Patient does not meet sepsis critera (04/19: leukocytosis) * Start Zosyn 2.25 gr IV Q8H (active since 12/25/16) and Doxcycline 100mg IV Q 12hours (active since 12/25/16) * Discussed with ED nurse, blood and urine cultures were collected-->pending Status: Acute (8) History of asthma Assessment and Plan: * continue home meds: Pulmicort Flexhaler 90 mcg INH RQ12hr * f/u sputum culture-->pending Status: Chronic (9) History of Gastritis Assessment and Plan: * Pepcid 20mg PO daily Status: Chronic (10) Diabetes 1.5, managed as type 2 Assessment and Plan: * Continue home meds: Glipizide 10 mg daily * daily Accuchecks QAC and HS * [id number] Status: Chronic (11) Hypothyroidism Status: Chronic * Order TSH in AM-->pending Status: Chronic (12) Hepatitis Assessment and Plan: * RUQ pain will f/u Amylase, lipase which are normal * LFTs are normal Status: Chronic (13) History of back pain Assessment and Plan: * held Magnesium oxide 400 mg BID; Tramadol-Acetaminophen 32.5-325 mg 2 tablets Q6hr Status: Acute (14) Lower extremity pain Assessment and Plan: * Held Magnesium oxide 400 mg BID; Tramadol-Acetaminophen 32.5-325 mg 2 tablets Q6hr Status: Acute (15) Prophylactic measure Assessment and Plan: * DVT: SCD * GI: Omeprazole 20 mg daily * Chemical anticoagulation contraindicated secondary anemia * Monitor intake and output * Daily Weight Status: Acute
--- NOTE | 2017-01-03 22:25 | PN ---
FOLLOWUP NOTE CHIEF COMPLAINT: The patient clinically has improved much more, shortness of breath is decreased. HISTORY OF PRESENT ILLNESS: A 81-year-old female known to us for light chain multiple myeloma. The patient is on dialysis for the renal failure. The patient will be having a bone marrow and then will be able to start the chemotherapy. REVIEW OF SYSTEMS: Denies any headache, dizziness or black out, feels little tired, but no chest pain, no palpitation. No nausea, vomiting. melena, hemoptysis, or hematemesis. No dysuria or hematuria. PHYSICAL EXAMINATION: GENERAL: Awake and alert, quiet, pleasant, out of bed, in the chair. VITAL SIGNS: Temperature 97.8, pulse 84, respirations 16, blood pressure 120/76. HEENT: Head is normocephalic and atraumatic. Eyes: Conjunctivae pink. Sclerae are white. Pupils are reactive to light. Ear, nose, and throat are within normal limits. LUNGS: Decreased breath sounds at both the bases. HEART: S1 and S2, regular. No gallop, no murmur. ABDOMEN: Soft and nondistended. Nontender. No hepatosplenomegaly. CENTRAL NERVOUS SYSTEM: No gross motor or sensory deficit. LYMPH NODE: No cervical, axillary or inguinal lymph nodes palpable. LABORATORY DATA: WBC 24,000, neutrophil 22,600, hemoglobin 11, hematocrit 32.8, platelet count of 197,000. BUN is 51. Creatinine is 3.2. Blood sugar is 270. Calcium is 7.4. Albumin is 3.6. IMPRESSION: Light chain multiple myeloma. PLAN: Clinical status discussed with the patient. Labs reviewed with the patient. Had a bone marrow aspirate and biopsy done. Procedure of bone marrow aspirate and biopsy. Bone marrow aspirate and biopsy done under aseptic precautions from the left posterior iliac spine. Difficult to aspirate bone marrow, but able to get enough of particulate of the bone marrow, also got the bone marrow biopsy. Bone marrow aspirate and biopsy was sent for the morphology, flow cytometry, cytogenetics. We will follow up this result. The patient had a Port-A-Cath placed in today. We will start the patient on chemotherapy with Cytoxan 500 mg at a modified dose. Also Velcade 1.3 mg/kg of body weight and Decadron 20 mg. This will be given once a week, 4 weeks on, 1 week off. This was discussed at length with the patient for about 45 minutes to an hour. Side effects were discussed also. Consents were obtained and we like to start the chemotherapy tomorrow, and try to do the chemotherapy after dialysis. Discussed with the nurse briefly. Thank you for letting me participate in the care of this patient. Iggy Martinez MD cc: Dutch Winkler MD
[2017-01-03] MEDS: Tramadol 25 mg PO PRN (22:46)
--- NOTE | 2017-01-04 00:37 | OP ---
PROCEDURE DATE: 01/03/2017 PREOPERATIVE DIAGNOSIS: Multiple myeloma. PROCEDURE CARRIED OUT: Placement of double Port-A-Cath via left jugular vein with C-arm fluoroscopy, ultrasound-guided puncture and micropuncture technique. SURGEON: Murtaza Ontiveros Jr., MD MUSHROOM GROWER: , resident. ANESTHESIOLOGIST: . INDICATIONS: The patient is a 81-year-old woman with renal failure, multiple problems and found to have multiple myeloma, requires a port for chemotherapy. Consent was obtained from her brother who has language issue. The patient could not sign her own consent because of pain in the hand. OPERATIVE FINDINGS: One catheter was inserted uneventfully via the jugular vein. Using ultrasound guidance and micropuncture technique, left jugular vein was cannulated. Under fluoroscopic control, guidewire was advanced centrally. This was subsequently exchanged for an 0.035 wire. This was positioned in the inferior vena cava. A sheath dilator was passed over this and the catheter was advanced to the level appropriately with superior vena cava right atrial junction. This was flushed with heparinized saline. There was good pull and return. There were no operative complications or problems. It was placed into a pocket on the left chest wall. Ultrasound imaging of the axillary vein was approximately 14 mm in diameter with normal compressibility and no evidence of intraluminal thrombosis. OPERATION CARRIED OUT: Placement of double chamber Port-A-Cath, left jugular vein. Murtaza Ontiveros Jr., MD
[2017-01-04] MEDS: MethylPREDNISolone 40 mg Vial IVP SCH ×3 (01:09→18:41)
[2017-01-04] MEDS: Albuterol-Ipratrop 3 mg / 0.5 (3 ml) UD INH SCH ×4 (02:03→19:53)
[2017-01-04] MEDS: Levothyroxine 75 MCG TAB PO SCH (05:36)
[2017-01-04 06:25] LABS: BASO % 0.1 % (0.0-2.0); HEMATOCRIT 31.4 % (34.0-47.0); LYMPH # 0.6 K/uL (1.0-4.3); LYMPH % 2.4 % (20.0-40.0); MEAN CELL VOLUME 91.1 fL (81.0-99.0); MEAN CORPUSCULAR HEMOGLOBIN 30.5 pg (27.0-31.0); MEAN CORPUSCULAR HGB CONC 33.5 g/dL (33.0-37.0); MONO # 0.9 K/uL (0.0-0.8); MONO % 3.6 % (0.0-10.0); PLATELET COUNT 174 K/uL (130-400); RED CELL DISTRIBUTION WIDTH 16.6 % (11.5-14.5); WHITE BLOOD COUNT 25.9 K/uL (4.8-10.8)
[2017-01-04] MEDS: Piperacill/Tazo 2.25gm in Dex 2.25 GM/50 ML BAG IVPB SCH ×3 (06:36→22:31)
[2017-01-04 06:38] LABS: ALB/GLOB RATIO 1.5 (1.0-2.1); BILIRUBIN,TOTAL 0.6 mg/dL (0.2-1.3); TOTAL PROTEIN 5.9 g/dL (6.3-8.3)
[2017-01-04 06:39] LABS: CALCIUM 6.8 mg/dl (8.6-10.4); PHOSPHOROUS 6.1 mg/dL (2.5-4.5)
--- NOTE | 2017-01-04 08:21 | CP.CCUPN ---
<EdnaSunny love Elsie - Last Filed: 01/04/17 17:06> CCU Subjective - Physician Review Subjective (Free Text): Patient seen and examined at bedside. Patient alert, AAOx3, able to follow commands. Patient is s/p portacath and will receive her first cycle of chemotherapy today. Patient continues to have labored breathing on nasal cannula , she refuses to use BiPAP. Patient received dialysis today and went into A-fib immediately afterwards. Denies chest pain, abdominal pain, fever, palpitations, nausea, vomiting. Per nursing staff, no acute events overnight. CCU Objective - Vital Signs / Intake & Output Vital Signs (Last 4 hours): Vital Signs Pulse Resp BP Pulse Ox 01/04/17 07:39 22 01/04/17 07:00 72 14 100 01/04/17 06:50 71 24 97/34 L 100 01/04/17 06:04 16 01/04/17 06:00 74 14 99 01/04/17 05:49 76 16 113/46 L 96 01/04/17 05:00 72 17 100 01/04/17 04:49 71 14 124/51 L 96 Intake and Output (Last 8hrs): Intake & Output 01/03/17 01/04/17 01/04/17 22:59 06:59 14:59 Intake Total 225 250 Balance 225 250 Weight 165 lb Intake: Intake, IV Amount 50 150 Right Wrist 50 150 Oral 175 100 - Physical Exam Head: Positive for: Atraumatic, Normocephalic Pupils: Positive for: PERRL Extroacular Muscles: Positive for: EOMI Mouth: Positive for: Moist Mucous Membranes Respiratory/Chest: Positive for: Rhonchi Cardiovascular: Positive for: Regular Rate and Rhythm, Normal S1, S2 Abdomen: Positive for: Normal Bowel Sounds. Negative for: Tenderness, Distention Upper Extremity: Negative for: Edema Lower Extremity: Negative for: Edema Neurological: Positive for: CN II-XII Intact, Speech Normal Psychiatric: Positive for: Alert, Oriented x 3, Normal Insight - Medications Active Medications: Active Medications Generic Name Dose Route Start Last Admin Trade Name Freq PRN Reason Stop Dose Admin Acyclovir 400 mg 01/03/17 10:00 01/03/17 10:32 Zovirax PO 400 mg DAILY MARIBETH Administration Albuterol/Ipratropium 3 ml 01/02/17 14:00 01/04/17 07:39 Duoneb 3 Mg/0.5 Mg (3 Ml) Ud INH 3 ml RQ6 MARIBETH Administration Famotidine 20 mg 12/27/16 10:00 01/03/17 10:18 Pepcid PO 20 mg DAILY MARIBETH Administration Ferrous Sulfate 325 mg 12/26/16 10:00 01/03/17 10:18 Feosol PO 325 mg DAILY MARIBETH Administration Glipizide 10 mg 12/27/16 10:00 01/03/17 10:24 Glucotrol PO 10 mg DAILY MARIBETH Administration Heparin Sodium (Porcine) 5,000 units 12/30/16 10:00 12/31/16 21:01 Heparin SC 5,000 units Q12 MARIBETH Administration Piperacillin Sod/Tazobactam Sod 2.25 gm in 50 mls @ 100 mls/hr 12/25/16 23:00 01/04/17 06:36 Zosyn 2.25 Gm Iv Premix IVPB 100 mls/hr Q8H MARIBETH Administration Doxycycline Hyclate 100 mg/ 100 mls @ 100 mls/hr 12/25/16 21:00 01/03/17 21: 33 Sodium Chloride IVPB 100 mls/hr Q12H MARIBETH Administration Insulin Human Regular 0 unit 12/31/16 10:15 01/03/17 23:55 Novolin R SC 3 unit ACHS MARIBETH Administration Protocol Levothyroxine Sodium 75 mcg 12/26/16 06:30 01/04/17 05:36 Synthroid PO 75 mcg DAILY@0630 MARIBETH Administration Lidocaine 1 ea 12/30/16 21:00 01/03/17 10:43 Lidoderm TD Not Given DAILY MARIBETH Methylprednisolone 40 mg 12/27/16 17:45 01/04/17 01:09 Solu-Medrol IVP 40 mg Q8H MARIBETH Administration Rosuvastatin Calcium 5 mg 12/30/16 22:00 01/03/17 21:33 Crestor PO 5 mg HS MARIBETH Administration Sevelamer Carbonate 1,600 mg 12/30/16 08:00 01/03/17 18:39 Renvela PO 1,600 mg TIDCC MARIBETH Administration Tramadol HCl 25 mg 01/02/17 09:31 01/03/17 22:46 Ultram PO 25 mg Q6H PRN Administration Pain, severe (8-10) Trimethoprim/Sulfamethoxazole 1 tab 01/04/17 10:00 Bactrim Ss Tab PO DAILY MARIBETH - Patient Studies Lab Studies: Microbiology Studies 12/29/16 20:30 Blood Culture - Final Blood NO GROWTH AFTER 5 DAYS Gram Stain - Final TEST NOT PERFORMED 12/29/16 20:00 Blood Culture - Final Blood NO GROWTH AFTER 5 DAYS Gram Stain - Final TEST NOT PERFORMED Lab Studies 01/04/17 01/04/17 01/04/17 Range/Units 07:21 06:16 06:16 WBC 25.9 H (4.8-10.8) K/uL RBC 3.44 L (3.80-5.20) Mil/uL Hgb 10.5 L (11.0-16.0) g/dL Hct 31.4 L (34.0-47.0) % MCV 91.1 (81.0-99.0) fL MCH 30.5 (27.0-31.0) pg MCHC 33.5 (33.0-37.0) g/dL RDW 16.6 H (11.5-14.5) % Plt Count 174 (130-400) K/uL MPV 9.0 (7.2-11.7) fL Neut % (Auto) 93.9 H (50.0-75.0) % Lymph % (Auto) 2.4 L (20.0-40.0) % Linn % (Auto) 3.6 (0.0-10.0) % Eos % (Auto) 0.0 (0.0-4.0) % Baso % (Auto) 0.1 (0.0-2.0) % Neut # 24.3 H (1.8-7.0) K/uL Lymph # 0.6 L (1.0-4.3) K/uL Linn # 0.9 H (0.0-0.8) K/uL Eos # 0.0 (0.0-0.7) K/uL Baso # 0.0 (0.0-0.2) K/uL Neutrophils % (Manual) (50-75) % Band Neutrophils % (0-2) % Lymphocytes % (Manual) (20-40) % Monocytes % (Manual) (0-10) % Platelet Estimate (NORMAL) Large Platelets Hypochromasia (manual) Poikilocytosis (manual Basophilic Stippling Anisocytosis (manual) Microcytosis (manual) Ovalocytes Sodium 138 (132-148) mmol/L Potassium 4.0 (3.6-5.2) mmol/L Chloride 94 L (98-107) mmol/L Carbon Dioxide 23 (22-30) mmol/L Anion Gap 25 H (10-20) BUN 84 H (7-17) mg/dL Creatinine 5.3 H (0.7-1.2) MG/DL Est GFR ( Amer) 9 Est GFR (Non-Af Amer) 8 POC Glucose (mg/dL) 273 H (65-110) mg/dL Random Glucose 192 H (65-105) mg/dL Calcium 6.8 L (8.6-10.4) mg/dl Phosphorus 6.1 H (2.5-4.5) mg/dL Magnesium 2.0 (1.6-2.3) mg/dL Total Bilirubin 0.6 (0.2-1.3) mg/dL AST 13 L (14-36) U/L ALT 31 (9-52) U/L Alkaline Phosphatase 61 (38-126) U/L Total Protein 5.9 L (6.3-8.3) g/dL Albumin 3.5 (3.5-5.0) g/dL Globulin 2.4 (2.2-3.9) gm/dL Albumin/Globulin Ratio 1.5 (1.0-2.1) 01/03/17 01/03/17 01/03/17 Range/Units 21:16 16:19 11:04 WBC (4.8-10.8) K/uL RBC (3.80-5.20) Mil/uL Hgb (11.0-16.0) g/dL Hct (34.0-47.0) % MCV (81.0-99.0) fL MCH (27.0-31.0) pg MCHC (33.0-37.0) g/dL RDW (11.5-14.5) % Plt Count (130-400) K/uL MPV (7.2-11.7) fL Neut % (Auto) (50.0-75.0) % Lymph % (Auto) (20.0-40.0) % Linn % (Auto) (0.0-10.0) % Eos % (Auto) (0.0-4.0) % Baso % (Auto) (0.0-2.0) % Neut # (1.8-7.0) K/uL Lymph # (1.0-4.3) K/uL Linn # (0.0-0.8) K/uL Eos # (0.0-0.7) K/uL Baso # (0.0-0.2) K/uL Neutrophils % (Manual) (50-75) % Band Neutrophils % (0-2) % Lymphocytes % (Manual) (20-40) % Monocytes % (Manual) (0-10) % Platelet Estimate (NORMAL) Large Platelets Hypochromasia (manual) Poikilocytosis (manual Basophilic Stippling Anisocytosis (manual) Microcytosis (manual) Ovalocytes Sodium (132-148) mmol/L Potassium (3.6-5.2) mmol/L Chloride (98-107) mmol/L Carbon Dioxide (22-30) mmol/L Anion Gap (10-20) BUN (7-17) mg/dL Creatinine (0.7-1.2) MG/DL Est GFR ( Amer) Est GFR (Non-Af Amer) POC Glucose (mg/dL) 368 H 428 H* 267 H (65-110) mg/dL Random Glucose (65-105) mg/dL Calcium (8.6-10.4) mg/dl Phosphorus (2.5-4.5) mg/dL Magnesium (1.6-2.3) mg/dL Total Bilirubin (0.2-1.3) mg/dL AST (14-36) U/L ALT (9-52) U/L Alkaline Phosphatase (38-126) U/L Total Protein (6.3-8.3) g/dL Albumin (3.5-5.0) g/dL Globulin (2.2-3.9) gm/dL Albumin/Globulin Ratio (1.0-2.1) 01/03/17 Range/Units 06:12 WBC (4.8-10.8) K/uL RBC (3.80-5.20) Mil/uL Hgb (11.0-16.0) g/dL Hct (34.0-47.0) % MCV (81.0-99.0) fL MCH (27.0-31.0) pg MCHC (33.0-37.0) g/dL RDW (11.5-14.5) % Plt Count (130-400) K/uL MPV (7.2-11.7) fL Neut % (Auto) (50.0-75.0) % Lymph % (Auto) (20.0-40.0) % Linn % (Auto) (0.0-10.0) % Eos % (Auto) (0.0-4.0) % Baso % (Auto) (0.0-2.0) % Neut # (1.8-7.0) K/uL Lymph # (1.0-4.3) K/uL Linn # (0.0-0.8) K/uL Eos # (0.0-0.7) K/uL Baso # (0.0-0.2) K/uL Neutrophils % (Manual) 91 H (50-75) % Band Neutrophils % 1 (0-2) % Lymphocytes % (Manual) 3 L (20-40) % Monocytes % (Manual) 5 (0-10) % Platelet Estimate Normal (NORMAL) Large Platelets Present Hypochromasia (manual) Slight Poikilocytosis (manual Slight Basophilic Stippling Slight Anisocytosis (manual) Slight Microcytosis (manual) Slight Ovalocytes Slight Sodium (132-148) mmol/L Potassium (3.6-5.2) mmol/L Chloride (98-107) mmol/L Carbon Dioxide (22-30) mmol/L Anion Gap (10-20) BUN (7-17) mg/dL Creatinine (0.7-1.2) MG/DL Est GFR ( Amer) Est GFR (Non-Af Amer) POC Glucose (mg/dL) (65-110) mg/dL Random Glucose (65-105) mg/dL Calcium (8.6-10.4) mg/dl Phosphorus (2.5-4.5) mg/dL Magnesium (1.6-2.3) mg/dL Total Bilirubin (0.2-1.3) mg/dL AST (14-36) U/L ALT (9-52) U/L Alkaline Phosphatase (38-126) U/L Total Protein (6.3-8.3) g/dL Albumin (3.5-5.0) g/dL Globulin (2.2-3.9) gm/dL Albumin/Globulin Ratio (1.0-2.1) Laboratory Results - last 24 hr 01/03/17 01/03/17 01/03/17 06:12 11:04 16:19 WBC RBC Hgb Hct MCV MCH MCHC RDW Plt Count MPV Neut % (Auto) Lymph % (Auto) Linn % (Auto) Eos % (Auto) Baso % (Auto) Neut # Lymph # Linn # Eos # Baso # Neutrophils % (Manual) 91 H Band Neutrophils % 1 Lymphocytes % (Manual) 3 L Monocytes % (Manual) 5 Platelet Estimate Normal Large Platelets Present Hypochromasia (manual) Slight Poikilocytosis (manual Slight Basophilic Stippling Slight Anisocytosis (manual) Slight Microcytosis (manual) Slight Ovalocytes Slight Sodium Potassium Chloride Carbon Dioxide Anion Gap BUN Creatinine Est GFR ( Amer) Est GFR (Non-Af Amer) POC Glucose (mg/dL) 267 H 428 H* Random Glucose Calcium Phosphorus Magnesium Total Bilirubin AST ALT Alkaline Phosphatase Total Protein Albumin Globulin Albumin/Globulin Ratio 01/03/17 01/04/17 01/04/17 21:16 06:16 06:16 WBC 25.9 H RBC 3.44 L Hgb 10.5 L Hct 31.4 L MCV 91.1 MCH 30.5 MCHC 33.5 RDW 16.6 H Plt Count 174 MPV 9.0 Neut % (Auto) 93.9 H Lymph % (Auto) 2.4 L Linn % (Auto) 3.6 Eos % (Auto) 0.0 Baso % (Auto) 0.1 Neut # 24.3 H Lymph # 0.6 L Linn # 0.9 H Eos # 0.0 Baso # 0.0 Neutrophils % (Manual) Band Neutrophils % Lymphocytes % (Manual) Monocytes % (Manual) Platelet Estimate Large Platelets Hypochromasia (manual) Poikilocytosis (manual Basophilic Stippling Anisocytosis (manual) Microcytosis (manual) Ovalocytes Sodium 138 Potassium 4.0 Chloride 94 L Carbon Dioxide 23 Anion Gap 25 H BUN 84 H Creatinine 5.3 H Est GFR ( Amer) 9 Est GFR (Non-Af Amer) 8 POC Glucose (mg/dL) 368 H Random Glucose 192 H Calcium 6.8 L Phosphorus 6.1 H Magnesium 2.0 Total Bilirubin 0.6 AST 13 L ALT 31 Alkaline Phosphatase 61 Total Protein 5.9 L Albumin 3.5 Globulin 2.4 Albumin/Globulin Ratio 1.5 01/04/17 07:21 WBC RBC Hgb Hct MCV MCH MCHC RDW Plt Count MPV Neut % (Auto) Lymph % (Auto) Linn % (Auto) Eos % (Auto) Baso % (Auto) Neut # Lymph # Linn # Eos # Baso # Neutrophils % (Manual) Band Neutrophils % Lymphocytes % (Manual) Monocytes % (Manual) Platelet Estimate Large Platelets Hypochromasia (manual) Poikilocytosis (manual Basophilic Stippling Anisocytosis (manual) Microcytosis (manual) Ovalocytes Sodium Potassium Chloride Carbon Dioxide Anion Gap BUN Creatinine Est GFR ( Amer) Est GFR (Non-Af Amer) POC Glucose (mg/dL) 273 H Random Glucose Calcium Phosphorus Magnesium Total Bilirubin AST ALT Alkaline Phosphatase Total Protein Albumin Globulin Albumin/Globulin Ratio Fingerstick Blood Sugar Results: 428 Review of Systems - Constitutional Constitutional: absent: Fever, Chills, Sweats - Cardiovascular Cardiovascular: UNREMARKABLE - Respiratory Respiratory: UNREMARKABLE - Gastrointestinal Gastrointestinal: UNREMARKABLE - Genitourinary Genitourinary: UNREMARKABLE - Musculoskeletal Musculoskeletal: Back Pain - Neurological Neurological: UNREMARKABLE Critical Care Progress Note - Nutrition Nutrition: Nutrition Category Date Time Status Renal Diet [DIET] Diets 01/03/17 Lunch Active Assessment/Plan (1) CHF exacerbation Current Visit: No Status: Acute (2) Acute kidney injury superimposed on chronic kidney disease Current Visit: No Status: Acute (3) Anemia Current Visit: No Status: Chronic (4) Atrial fibrillation with controlled ventricular response Current Visit: No Status: Acute (5) HTN (hypertension) Current Visit: No Status: Chronic (6) Leucocytosis Current Visit: No Status: Acute (7) History of asthma Current Visit: Yes Status: Acute (8) Gastritis Current Visit: No Status: Acute (9) Diabetes 1.5, 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 Today 01/04/17: Patient is s/p portacath. Patient received dialysis today, went into A-fib immediately afterwards. She was given Lopressor 5mg IVP, Amiodarone 150mg IVPB, and Cardizem 15mg IVP, which all failed. Patient was cardioverted at 75J which also failed, and then a second attempt at 150J was done which was successful at bringing the patient back to normal sinus rhythm. Patient will receive her first cycle of chemotherapy today. Neuro: Alert and oriented 3 Pulm: Acute hypoxic respiratory failure secondary to interstitial pneumonitis, seen on CT chest. COPD continue Methylprednisolone IV every 8h. Patient may need bronch with BAL/biopsy, consulted Dr. Kessler. Patient may have pulmonary invasive Myeloma (rare, chemotx will help), vs infectious etiology. - elevated LDH; Bactrim 2 tab PO daily CV: Acute on chronic decompensated diastolic heart failure, fluid removal via dialysis, NOT IMPROVING PULMONARY function/radiographic appearance. Heme: Transfused with 2 units pRBCs 01/01, multifactorial with critical illness, multiple myeloma. Multiple myeloma, intended treatment with Velcade and Cytoxan and Decadron. Bone marrow biopsy done 01/03. Hem/Onc, Dr. Martinez, following plan to start chemotherapy today after Portacath placement. Renal: acute renal failure requiring Daily dialysis for fluid removal. Endo: DM type II, regular insulin sliding scale for coverage, Glucotrol. Hypothyroidism, continue levothyroxine. GI: Diabetic diet, Glipizide 10 mg PO daily, Insulin ID: Possible pneumonia, continue antibiotics (active since 12/25): doxycycline and Zosyn. Msk: back pain, chronic - Tramadol 25 mg PO Q6 prn - Lidoderm patch daily DVT proph - heparin subcutaneous GI proph - Pepcid valencia for strict I/O's during acute illness Code status - full code <Jc Stevens - Last Filed: 01/04/17 17:31> CCU Objective - Vital Signs / Intake & Output Vital Signs (Last 4 hours): Vital Signs Temp Pulse Resp BP Pulse Ox 01/04/17 16:58 82/47 L 01/04/17 16:57 75 19 96 01/04/17 16:22 74 15 85/44 L 96 01/04/17 16:20 73 15 87/46 L 97 01/04/17 16:00 98.4 F 135 H 15 88/52 L 99 01/04/17 15:10 121 H 17 82/50 L 96 01/04/17 15:00 123 H 14 96 01/04/17 14:55 127 H 16 85/51 L 94 L 01/04/17 14:53 117 H 15 76/45 L 97 01/04/17 14:40 127 H 18 83/50 L 97 01/04/17 14:26 128 H 17 81/49 L 94 L 01/04/17 14:20 132 H 17 133/106 H 93 L 01/04/17 14:12 142 H 20 81/46 L 90 L 01/04/17 14:00 139 H 25 H 01/04/17 13:54 149 H 15 80/46 L 88 L 01/04/17 13:53 155 H 18 81/48 L 94 L 01/04/17 13:52 147 H 15 98/77 L 82 L 01/04/17 13:47 161 H 21 67/49 L 94 L 01/04/17 13:45 16 Intake and Output (Last 8hrs): Intake & Output 01/04/17 01/04/17 01/04/17 06:59 14:59 22:59 Intake Total 250 120 Output Total 80 Balance 250 40 Weight 165 lb Intake: Intake, IV Amount 150 Right Wrist 150 Oral 100 120 Output: Urine 80 Urine, Voided 80 Emesis 0 Other: # Bowel Movements 0 - Medications Active Medications: Active Medications Generic Name Dose Route Start Last Admin Trade Name Freq PRN Reason Stop Dose Admin Acyclovir 400 mg 01/03/17 10:00 01/04/17 10:21 Zovirax PO 400 mg DAILY MARIBETH Administration Albuterol/Ipratropium 3 ml 01/02/17 14:00 01/04/17 13:49 Duoneb 3 Mg/0.5 Mg (3 Ml) Ud INH Not Given RQ6 MARIBETH Famotidine 20 mg 12/27/16 10:00 01/04/17 10:08 Pepcid PO 20 mg DAILY MARIBETH Administration Ferrous Sulfate 325 mg 12/26/16 10:00 01/04/17 10:08 Feosol PO 325 mg DAILY MARIBETH Administration Glipizide 10 mg 12/27/16 10:00 01/04/17 10:07 Glucotrol PO 10 mg DAILY MARIBETH Administration Heparin Sodium (Porcine) 5,000 units 12/30/16 10:00 12/31/16 21:01 Heparin SC 5,000 units Q12 MARIBETH Administration Piperacillin Sod/Tazobactam Sod 2.25 gm in 50 mls @ 100 mls/hr 12/25/16 23:00 01/04/17 14:13 Zosyn 2.25 Gm Iv Premix IVPB 100 mls/hr Q8H MARIBETH Administration Amiodarone HCl 900 mg/ 500 mls @ 16.66 mls/hr 01/04/17 16:22 Dextrose IV 01/05/17 16:21 .Q24H ONE Protocol 0.5 MG/MIN Amiodarone HCl 900 mg/ 500 mls @ 33.33 mls/hr 01/04/17 16:22 Dextrose IV 01/05/17 07:22 .Q15H1M ONE Protocol 1 MG/MIN Insulin Human Regular 0 unit 12/31/16 10:15 01/04/17 12:06 Novolin R SC 2 unit ACHS MARIBETH Administration Protocol Levothyroxine Sodium 75 mcg 12/26/16 06:30 01/04/17 05:36 Synthroid PO 75 mcg DAILY@0630 MARIBETH Administration Lidocaine 1 ea 12/30/16 21:00 01/04/17 10:18 Lidoderm TD Not Given DAILY MARIBETH Methylprednisolone 40 mg 12/27/16 17:45 01/04/17 10:10 Solu-Medrol IVP 40 mg Q8H MARIBETH Administration Rosuvastatin Calcium 5 mg 12/30/16 22:00 01/03/17 21:33 Crestor PO 5 mg HS MARIBETH Administration Sevelamer Carbonate 1,600 mg 12/30/16 08:00 01/04/17 12:07 Renvela PO 1,600 mg TIDCC MARIBETH Administration Tramadol HCl 25 mg 01/02/17 09:31 01/03/17 22:46 Ultram PO 25 mg Q6H PRN Administration Pain, severe (8-10) Trimethoprim/Sulfamethoxazole 1 tab 01/04/17 10:00 01/04/17 10:08 Bactrim Ss Tab PO 1 tab DAILY MARIBETH Administration - Patient Studies Lab Studies: Microbiology Studies 12/29/16 20:30 Blood Culture - Final Blood NO GROWTH AFTER 5 DAYS Gram Stain - Final TEST NOT PERFORMED 12/29/16 20:00 Blood Culture - Final Blood NO GROWTH AFTER 5 DAYS Gram Stain - Final TEST NOT PERFORMED Lab Studies 01/04/17 01/04/17 01/04/17 Range/Units 16:50 16:33 11:28 WBC (4.8-10.8) K/uL RBC (3.80-5.20) Mil/uL Hgb (11.0-16.0) g/dL Hct (34.0-47.0) % MCV (81.0-99.0) fL MCH (27.0-31.0) pg MCHC (33.0-37.0) g/dL RDW (11.5-14.5) % Plt Count (130-400) K/uL MPV (7.2-11.7) fL Neut % (Auto) (50.0-75.0) % Lymph % (Auto) (20.0-40.0) % Linn % (Auto) (0.0-10.0) % Eos % (Auto) (0.0-4.0) % Baso % (Auto) (0.0-2.0) % Neut # (1.8-7.0) K/uL Lymph # (1.0-4.3) K/uL Linn # (0.0-0.8) K/uL Eos # (0.0-0.7) K/uL Baso # (0.0-0.2) K/uL Neutrophils % (Manual) (50-75) % Band Neutrophils % (0-2) % Lymphocytes % (Manual) (20-40) % Monocytes % (Manual) (0-10) % Platelet Estimate (NORMAL) Hypochromasia (manual) Poikilocytosis (manual Anisocytosis (manual) Puncture Site Rra pCO2 37 (35-45) mm/Hg pO2 122 H (80-100) mm/Hg HCO3 25.2 (21-28) mmol/L ABG pH 7.43 (7.35-7.45) ABG Total CO2 25.7 (22-28) mmol/L ABG O2 Saturation 98.9 H (95-98) % ABG Base Excess 0.4 (-2.0-3.0) mmol/L ABG Hemoglobin 11.1 L (11.7-17.4) g/dL ABG Carboxyhemoglobin 1.3 (0.5-1.5) % POC ABG HHb (Measured) 1.1 (0.0-5.0) % ABG Methemoglobin 1.4 (0.0-3.0) % Walt Test Pos A-a O2 Difference 545.0 mm/Hg Respiratory Index 4.5 Hgb O2 Saturation 96.1 (95.0-98.0) % FiO2 100.0 % Sodium (132-148) mmol/L Potassium (3.6-5.2) mmol/L Chloride (98-107) mmol/L Carbon Dioxide (22-30) mmol/L Anion Gap (10-20) BUN (7-17) mg/dL Creatinine (0.7-1.2) MG/DL Est GFR ( Amer) Est GFR (Non-Af Amer) POC Glucose (mg/dL) 277 H 174 H (65-110) mg/dL Random Glucose (65-105) mg/dL Calcium (8.6-10.4) mg/dl Phosphorus (2.5-4.5) mg/dL Magnesium (1.6-2.3) mg/dL Total Bilirubin (0.2-1.3) mg/dL AST (14-36) U/L ALT (9-52) U/L Alkaline Phosphatase (38-126) U/L Total Protein (6.3-8.3) g/dL Albumin (3.5-5.0) g/dL Globulin (2.2-3.9) gm/dL Albumin/Globulin Ratio (1.0-2.1) 01/04/17 01/04/17 01/04/17 Range/Units 07:21 06:16 06:16 WBC 25.9 H (4.8-10.8) K/uL RBC 3.44 L (3.80-5.20) Mil/uL Hgb 10.5 L (11.0-16.0) g/dL Hct 31.4 L (34.0-47.0) % MCV 91.1 (81.0-99.0) fL MCH 30.5 (27.0-31.0) pg MCHC 33.5 (33.0-37.0) g/dL RDW 16.6 H (11.5-14.5) % Plt Count 174 (130-400) K/uL MPV 9.0 (7.2-11.7) fL Neut % (Auto) 93.9 H (50.0-75.0) % Lymph % (Auto) 2.4 L (20.0-40.0) % Linn % (Auto) 3.6 (0.0-10.0) % Eos % (Auto) 0.0 (0.0-4.0) % Baso % (Auto) 0.1 (0.0-2.0) % Neut # 24.3 H (1.8-7.0) K/uL Lymph # 0.6 L (1.0-4.3) K/uL Linn # 0.9 H (0.0-0.8) K/uL Eos # 0.0 (0.0-0.7) K/uL Baso # 0.0 (0.0-0.2) K/uL Neutrophils % (Manual) 93 H (50-75) % Band Neutrophils % 2 (0-2) % Lymphocytes % (Manual) 3 L (20-40) % Monocytes % (Manual) 2 (0-10) % Platelet Estimate Normal (NORMAL) Hypochromasia (manual) Slight Poikilocytosis (manual Slight Anisocytosis (manual) Slight Puncture Site pCO2 (35-45) mm/Hg pO2 (80-100) mm/Hg HCO3 (21-28) mmol/L ABG pH (7.35-7.45) ABG Total CO2 (22-28) mmol/L ABG O2 Saturation (95-98) % ABG Base Excess (-2.0-3.0) mmol/L ABG Hemoglobin (11.7-17.4) g/dL ABG Carboxyhemoglobin (0.5-1.5) % POC ABG HHb (Measured) (0.0-5.0) % ABG Methemoglobin (0.0-3.0) % Walt Test A-a O2 Difference mm/Hg Respiratory Index Hgb O2 Saturation (95.0-98.0) % FiO2 % Sodium 138 (132-148) mmol/L Potassium 4.0 (3.6-5.2) mmol/L Chloride 94 L (98-107) mmol/L Carbon Dioxide 23 (22-30) mmol/L Anion Gap 25 H (10-20) BUN 84 H (7-17) mg/dL Creatinine 5.3 H (0.7-1.2) MG/DL Est GFR ( Amer) 9 Est GFR (Non-Af Amer) 8 POC Glucose (mg/dL) 273 H (65-110) mg/dL Random Glucose 192 H (65-105) mg/dL Calcium 6.8 L (8.6-10.4) mg/dl Phosphorus 6.1 H (2.5-4.5) mg/dL Magnesium 2.0 (1.6-2.3) mg/dL Total Bilirubin 0.6 (0.2-1.3) mg/dL AST 13 L (14-36) U/L ALT 31 (9-52) U/L Alkaline Phosphatase 61 (38-126) U/L Total Protein 5.9 L (6.3-8.3) g/dL Albumin 3.5 (3.5-5.0) g/dL Globulin 2.4 (2.2-3.9) gm/dL Albumin/Globulin Ratio 1.5 (1.0-2.1) 01/03/17 Range/Units 21:16 WBC (4.8-10.8) K/uL RBC (3.80-5.20) Mil/uL Hgb (11.0-16.0) g/dL Hct (34.0-47.0) % MCV (81.0-99.0) fL MCH (27.0-31.0) pg MCHC (33.0-37.0) g/dL RDW (11.5-14.5) % Plt Count (130-400) K/uL MPV (7.2-11.7) fL Neut % (Auto) (50.0-75.0) % Lymph % (Auto) (20.0-40.0) % Linn % (Auto) (0.0-10.0) % Eos % (Auto) (0.0-4.0) % Baso % (Auto) (0.0-2.0) % Neut # (1.8-7.0) K/uL Lymph # (1.0-4.3) K/uL Linn # (0.0-0.8) K/uL Eos # (0.0-0.7) K/uL Baso # (0.0-0.2) K/uL Neutrophils % (Manual) (50-75) % Band Neutrophils % (0-2) % Lymphocytes % (Manual) (20-40) % Monocytes % (Manual) (0-10) % Platelet Estimate (NORMAL) Hypochromasia (manual) Poikilocytosis (manual Anisocytosis (manual) Puncture Site pCO2 (35-45) mm/Hg pO2 (80-100) mm/Hg HCO3 (21-28) mmol/L ABG pH (7.35-7.45) ABG Total CO2 (22-28) mmol/L ABG O2 Saturation (95-98) % ABG Base Excess (-2.0-3.0) mmol/L ABG Hemoglobin (11.7-17.4) g/dL ABG Carboxyhemoglobin (0.5-1.5) % POC ABG HHb (Measured) (0.0-5.0) % ABG Methemoglobin (0.0-3.0) % Walt Test A-a O2 Difference mm/Hg Respiratory Index Hgb O2 Saturation (95.0-98.0) % FiO2 % Sodium (132-148) mmol/L Potassium (3.6-5.2) mmol/L Chloride (98-107) mmol/L Carbon Dioxide (22-30) mmol/L Anion Gap (10-20) BUN (7-17) mg/dL Creatinine (0.7-1.2) MG/DL Est GFR ( Amer) Est GFR (Non-Af Amer) POC Glucose (mg/dL) 368 H (65-110) mg/dL Random Glucose (65-105) mg/dL Calcium (8.6-10.4) mg/dl Phosphorus (2.5-4.5) mg/dL Magnesium (1.6-2.3) mg/dL Total Bilirubin (0.2-1.3) mg/dL AST (14-36) U/L ALT (9-52) U/L Alkaline Phosphatase (38-126) U/L Total Protein (6.3-8.3) g/dL Albumin (3.5-5.0) g/dL Globulin (2.2-3.9) gm/dL Albumin/Globulin Ratio (1.0-2.1) Laboratory Results - last 24 hr 01/03/17 01/04/17 01/04/17 21:16 06:16 06:16 WBC 25.9 H RBC 3.44 L Hgb 10.5 L Hct 31.4 L MCV 91.1 MCH 30.5 MCHC 33.5 RDW 16.6 H Plt Count 174 MPV 9.0 Neut % (Auto) 93.9 H Lymph % (Auto) 2.4 L Linn % (Auto) 3.6 Eos % (Auto) 0.0 Baso % (Auto) 0.1 Neut # 24.3 H Lymph # 0.6 L Linn # 0.9 H Eos # 0.0 Baso # 0.0 Neutrophils % (Manual) 93 H Band Neutrophils % 2 Lymphocytes % (Manual) 3 L Monocytes % (Manual) 2 Platelet Estimate Normal Hypochromasia (manual) Slight Poikilocytosis (manual Slight Anisocytosis (manual) Slight Puncture Site pCO2 pO2 HCO3 ABG pH ABG Total CO2 ABG O2 Saturation ABG Base Excess ABG Hemoglobin ABG Carboxyhemoglobin POC ABG HHb (Measured) ABG Methemoglobin Walt Test A-a O2 Difference Respiratory Index Hgb O2 Saturation FiO2 Sodium 138 Potassium 4.0 Chloride 94 L Carbon Dioxide 23 Anion Gap 25 H BUN 84 H Creatinine 5.3 H Est GFR ( Amer) 9 Est GFR (Non-Af Amer) 8 POC Glucose (mg/dL) 368 H Random Glucose 192 H Calcium 6.8 L Phosphorus 6.1 H Magnesium 2.0 Total Bilirubin 0.6 AST 13 L ALT 31 Alkaline Phosphatase 61 Total Protein 5.9 L Albumin 3.5 Globulin 2.4 Albumin/Globulin Ratio 1.5 01/04/17 01/04/17 01/04/17 07:21 11:28 16:33 WBC RBC Hgb Hct MCV MCH MCHC RDW Plt Count MPV Neut % (Auto) Lymph % (Auto) Linn % (Auto) Eos % (Auto) Baso % (Auto) Neut # Lymph # [place] # Eos # Baso # Neutrophils % (Manual) Band Neutrophils % Lymphocytes % (Manual) Monocytes % (Manual) Platelet Estimate Hypochromasia (manual) Poikilocytosis (manual Anisocytosis (manual) Puncture Site pCO2 pO2 HCO3 ABG pH ABG Total CO2 ABG O2 Saturation ABG Base Excess ABG Hemoglobin ABG Carboxyhemoglobin POC ABG HHb (Measured) ABG Methemoglobin Walt Test A-a O2 Difference Respiratory Index Hgb O2 Saturation FiO2 Sodium Potassium Chloride Carbon Dioxide Anion Gap BUN Creatinine Est GFR ( Amer) Est GFR (Non-Af Amer) POC Glucose (mg/dL) 273 H 174 H 277 H Random Glucose Calcium Phosphorus Magnesium Total Bilirubin AST ALT Alkaline Phosphatase Total Protein Albumin Globulin Albumin/Globulin Ratio 01/04/17 16:50 WBC RBC Hgb Hct MCV MCH MCHC RDW Plt Count MPV Neut % (Auto) Lymph % (Auto) [place] % (Auto) Eos % (Auto) Baso % (Auto) Neut # Lymph # [place] # Eos # Baso # Neutrophils % (Manual) Band Neutrophils % Lymphocytes % (Manual) Monocytes % (Manual) Platelet Estimate Hypochromasia (manual) Poikilocytosis (manual Anisocytosis (manual) Puncture Site Rra pCO2 37 pO2 122 H HCO3 25.2 ABG pH 7.43 ABG Total CO2 25.7 ABG O2 Saturation 98.9 H ABG Base Excess 0.4 ABG Hemoglobin 11.1 L ABG Carboxyhemoglobin 1.3 POC ABG HHb (Measured) 1.1 ABG Methemoglobin 1.4 Walt Test Pos A-a O2 Difference 545.0 Respiratory Index 4.5 Hgb O2 Saturation 96.1 FiO2 100.0 Sodium Potassium Chloride Carbon Dioxide Anion Gap BUN Creatinine Est GFR ( Amer) Est GFR (Non-Af Amer) POC Glucose (mg/dL) Random Glucose Calcium Phosphorus Magnesium Total Bilirubin AST ALT Alkaline Phosphatase Total Protein Albumin Globulin Albumin/Globulin Ratio EKG/Cardiology Studies: Cardiology / EKG Studies 01/04/17 13:11 EKG [ELECTROCARDIOGRAM] Stat Comment: Mode Of Transportation: BED Reason For Exam: RAPID A FIB Critical Care Progress Note - Nutrition Nutrition: Nutrition Category Date Time Status Renal Diet [DIET] Diets 01/03/17 Lunch Active Assessment/Plan (1) Acute respiratory failure Current Visit: Yes Status: Acute Attending/Attestation - Attestation I have personally seen and examined this patient.: Yes I have fully participated in the care of the patient.: Yes I have reviewed all pertinent clinical information: Yes Notes (Text): 01/04/17 17:28 I have seen and examined the patient. Medical records, lab studies, and imaging were reviewed by me and a management plan was formulated on multidisciplinary rounds with resident Dr. Bishop. I agree with their above documented assessment and plan. Patient to start chemotherapy for Multiple Myeloma tomorrow. Went into refractory afib with hypotension, did not respond to beta-vania, calcium channel vania nor amiodarone bolus, had to perform electrical cardioversion, with success at 150 joules. Continue on Amiodarone loading to oral. Still on high flow oxygen, no improvement in CXR. Critical Care Time 50 minutes. Multi-disciplinary rounds were performed with house staff, nursing, speech therapy, respiratory therapy, pharmacy and nutrition with integrated input from the primary team/attending and other consulting services. The documented time is cumulative and includes review of patient data/exams/labs/chart review and examination of the patient on rounds and throughout the day; time is exclusive of any procedures or teaching time.
[2017-01-04 08:29] LABS: NEUTROPHIL 93 % (50-75); TOTAL CELLS COUNTED 100
[2017-01-04] MEDS: (Novolin R) Insulin Human Regular 100 units/ml vial SC SCH ×4 (08:36→21:25)
--- NOTE | 2017-01-04 08:54 | RAD ---
PROCEDURE: Intraoperative Fluoroscopy. HISTORY: RENAL FAILURE FINDINGS: Fluoroscopic assistance was provided for left-sided Port-A-Cath placement. Please refer to the operative report from
--- NOTE | 2017-01-04 09:55 | CP.PCM.PN ---
Subjective - Date & Time of Evaluation Date of Evaluation: 01/04/17 Time of Evaluation: 09:55 - Subjective Subjective: seen and examined c/o nausea vomiting undergoing hd s/p portacath discussed condition w/ pt's brother Objective - Vital Signs/Intake and Output Vital Signs (last 24 hours): Temp Pulse Resp BP Pulse Ox 98.5 F 82 18 101/41 L 98 01/04/17 08:00 01/04/17 09:00 01/04/17 09:00 01/04/17 07:49 01/04/17 09:00 Intake and Output: 01/04/17 01/04/17 06:59 18:59 Intake Total 275 Balance 275 - Medications Medications: Current Medications Acyclovir (Zovirax) 400 mg PO DAILY [facility] Last Admin: 01/03/17 10:32 Dose: 400 mg Albuterol/Ipratropium (Duoneb 3 Mg/0.5 Mg (3 Ml) Ud) 3 ml INH RQ6 [facility] Last Admin: 01/04/17 07:39 Dose: 3 ml Famotidine (Pepcid) 20 mg PO DAILY [facility] Last Admin: 01/03/17 10:18 Dose: 20 mg Ferrous Sulfate (Feosol) 325 mg PO DAILY [facility] Last Admin: 01/03/17 10:18 Dose: 325 mg Glipizide (Glucotrol) 10 mg PO DAILY [facility] Last Admin: 01/03/17 10:24 Dose: 10 mg Heparin Sodium (Porcine) (Heparin) 5,000 units SC Q12 [facility] Last Admin: 12/31/16 21:01 Dose: 5,000 units Piperacillin Sod/Tazobactam Sod (Zosyn 2.25 Gm Iv Premix) 2.25 gm in 50 mls @ 100 mls/hr IVPB Q8H [facility] Last Admin: 01/04/17 06:36 Dose: 100 mls/hr Doxycycline Hyclate 100 mg/ (Sodium Chloride) 100 mls @ 100 mls/hr IVPB Q12H [facility] Last Admin: 01/03/17 21:33 Dose: 100 mls/hr Insulin Human Regular (Novolin R) 0 unit SC ACHS [facility] PRN Reason: Protocol Last Admin: 01/04/17 08:36 Dose: 6 unit Levothyroxine Sodium (Synthroid) 75 mcg PO DAILY@0630 [facility] Last Admin: 01/04/17 05:36 Dose: 75 mcg Lidocaine (Lidoderm) 1 ea TD DAILY [facility] Last Admin: 01/03/17 10:43 Dose: Not Given Methylprednisolone (Solu-Medrol) 40 mg IVP Q8H [facility] Last Admin: 01/04/17 01:09 Dose: 40 mg Rosuvastatin Calcium (Crestor) 5 mg PO HS [facility] Last Admin: 01/03/17 21:33 Dose: 5 mg Sevelamer Carbonate (Renvela) 1,600 mg PO TIDCC [facility] Last Admin: 01/03/17 18:39 Dose: 1,600 mg Tramadol HCl (Ultram) 25 mg PO Q6H PRN PRN Reason: Pain, severe (8-10) Last Admin: 01/03/17 22:46 Dose: 25 mg Trimethoprim/Sulfamethoxazole (Bactrim Ss Tab) 1 tab PO DAILY [facility] - Labs Labs: 01/04/17 06:16 01/04/17 06:16 PT 13.1 SECONDS (9.7-12.2) H 12/26/16 08:05 INR 1.2 12/26/16 08:05 APTT 27 SECONDS (21-34) 01/01/17 06:00 - Constitutional Appears: Non-toxic, No Acute Distress, Chronically Ill - Head Exam Head Exam: NORMAL INSPECTION - Eye Exam Eye Exam: Normal appearance - ENT Exam ENT Exam: Mucous Membranes Moist, Normal Exam - Neck Exam Neck Exam: Normal Inspection - Respiratory Exam Respiratory Exam: Decreased Breath Sounds, Clear to Ausculation Bilateral Additional comments: rt chest permcath lt portacath - Cardiovascular Exam Cardiovascular Exam: REGULAR RHYTHM, RRR - GI/Abdominal Exam GI & Abdominal Exam: Distended, Soft - Extremities Exam Extremities Exam: Normal Inspection Assessment and Plan (1) Anemia Status: Acute (2) Hypercalcemia Status: Acute (3) Renal failure Status: Acute (4) Acute kidney injury superimposed on chronic kidney disease Status: Acute (5) Atrial fibrillation with controlled ventricular response Status: Acute - Assessment and Plan (Free Text) Assessment: maintain hd, will need usp chemotherapy for myeloma antibiotics - pneumonia
[2017-01-04] MEDS: Tmp-Smz 400 mg-80 mg SS Tab PO SCH (10:08)
[2017-01-04] MEDS: Lidocaine 5% Patch TD SCH (10:18)
--- NOTE | 2017-01-04 12:27 | CP.PCM.PN ---
<Melina Livingston - Last Filed: 01/04/17 13:41> Subjective - Date & Time of Evaluation Date of Evaluation: 01/04/17 Time of Evaluation: 11:00 - Subjective Subjective: Resident Progress Note for Dr. Little Patient seen and examined at bedside while getting dialysis. No acute events reported overnight. Patient states her breathing is improving. Denies headache, dizziness, fever, chills, shortness of breath, or chest pain. Objective - Vital Signs/Intake and Output Vital Signs (last 24 hours): Temp Pulse Resp BP Pulse Ox 98.8 F 75 20 91/61 L 98 01/04/17 09:45 01/04/17 09:45 01/04/17 11:06 01/04/17 12:15 01/04/17 09:45 Intake and Output: 01/04/17 01/04/17 06:59 18:59 Intake Total 275 Balance 275 - Medications Medications: Current Medications Acyclovir (Zovirax) 400 mg PO DAILY [facility] Last Admin: 01/04/17 10:21 Dose: 400 mg Albuterol/Ipratropium (Duoneb 3 Mg/0.5 Mg (3 Ml) Ud) 3 ml INH RQ6 [facility] Last Admin: 01/04/17 07:39 Dose: 3 ml Famotidine (Pepcid) 20 mg PO DAILY [facility] Last Admin: 01/04/17 10:08 Dose: 20 mg Ferrous Sulfate (Feosol) 325 mg PO DAILY [facility] Last Admin: 01/04/17 10:08 Dose: 325 mg Glipizide (Glucotrol) 10 mg PO DAILY [facility] Last Admin: 01/04/17 10:07 Dose: 10 mg Heparin Sodium (Porcine) (Heparin) 5,000 units SC Q12 [facility] Last Admin: 12/31/16 21:01 Dose: 5,000 units Piperacillin Sod/Tazobactam Sod (Zosyn 2.25 Gm Iv Premix) 2.25 gm in 50 mls @ 100 mls/hr IVPB Q8H [facility] Last Admin: 01/04/17 06:36 Dose: 100 mls/hr Doxycycline Hyclate 100 mg/ (Sodium Chloride) 100 mls @ 100 mls/hr IVPB Q12H [facility] Last Admin: 01/03/17 21:33 Dose: 100 mls/hr Insulin Human Regular (Novolin R) 0 unit SC ACHS [facility] PRN Reason: Protocol Last Admin: 01/04/17 12:06 Dose: 2 unit Levothyroxine Sodium (Synthroid) 75 mcg PO DAILY@0630 [facility] Last Admin: 01/04/17 05:36 Dose: 75 mcg Lidocaine (Lidoderm) 1 ea TD DAILY [facility] Last Admin: 01/04/17 10:18 Dose: Not Given Methylprednisolone (Solu-Medrol) 40 mg IVP Q8H [facility] Last Admin: 01/04/17 10:10 Dose: 40 mg Rosuvastatin Calcium (Crestor) 5 mg PO HS [facility] Last Admin: 01/03/17 21:33 Dose: 5 mg Sevelamer Carbonate (Renvela) 1,600 mg PO TIDCC [facility] Last Admin: 01/04/17 12:07 Dose: 1,600 mg Tramadol HCl (Ultram) 25 mg PO Q6H PRN PRN Reason: Pain, severe (8-10) Last Admin: 01/03/17 22:46 Dose: 25 mg Trimethoprim/Sulfamethoxazole (Bactrim Ss Tab) 1 tab PO DAILY [facility] Last Admin: 01/04/17 10:08 Dose: 1 tab - Labs Labs: 01/04/17 06:16 01/04/17 06:16 PT 13.1 SECONDS (9.7-12.2) H 12/26/16 08:05 INR 1.2 12/26/16 08:05 APTT 27 SECONDS (21-34) 01/01/17 06:00 - Constitutional Appears: No Acute Distress, Chronically Ill, Other (lethargic) - Head Exam Head Exam: NORMAL INSPECTION - Eye Exam Eye Exam: EOMI, Normal appearance, PERRL - ENT Exam ENT Exam: Mucous Membranes Dry - Respiratory Exam Respiratory Exam: Decreased Breath Sounds, NORMAL BREATHING PATTERN - Cardiovascular Exam Cardiovascular Exam: REGULAR RHYTHM, +S1, +S2 - GI/Abdominal Exam GI & Abdominal Exam: Soft, Normal Bowel Sounds. absent: Tenderness - Extremities Exam Extremities Exam: Normal Capillary Refill. absent: Pedal Edema - Neurological Exam Neurological Exam: Alert, Awake, Oriented x3 - Psychiatric Exam Psychiatric exam: Normal Affect, Normal Mood - Skin Skin Exam: Dry, Intact Assessment and Plan - Assessment and Plan (Free Text) Assessment: CHF -Diastolic congestive heart failure -BNP 58440 -Echo from 12/27/16 showed EF at 60% moderate LV diastolic dysfunction. LA is moderately dilated. RA is mildly dilated, mitral annular calcification is moderate. MV is calcified and displays decreased opening. Mild MV stenosis. severe pulmonary hypertension -Hold ACEI and ARB due to ARF -Monitor daily weights and I&O Atrial Fibrillation -Rate control with medication -Hold anticoagulation meds due to anemia HTN -BP stable -Continue to monitor Case discussed with attending Dr. Little <Nam Little - Last Filed: 01/06/17 07:26> Objective - Vital Signs/Intake and Output Vital Signs (last 24 hours): Temp Pulse Resp BP Pulse Ox 98.4 F 64 15 93/39 L 94 L 01/06/17 04:00 01/06/17 06:43 01/06/17 06:43 01/06/17 06:43 01/06/17 06:43 Intake and Output: 01/06/17 01/06/17 06:59 18:59 Intake Total 50 Balance 50 - Medications Medications: Current Medications Acyclovir (Zovirax) 400 mg PO DAILY [facility] Last Admin: 01/05/17 09:46 Dose: 400 mg Albuterol/Ipratropium (Duoneb 3 Mg/0.5 Mg (3 Ml) Ud) 3 ml INH RQ6 [facility] Last Admin: 01/06/17 01:51 Dose: 3 ml Famotidine (Pepcid) 20 mg PO DAILY [facility] Last Admin: 01/05/17 09:45 Dose: 20 mg Ferrous Sulfate (Feosol) 325 mg PO DAILY [facility] Last Admin: 01/05/17 09:45 Dose: 325 mg Glipizide (Glucotrol) 10 mg PO DAILY [facility] Heparin Sodium (Porcine) (Heparin) 5,000 units SC Q12 [facility] Last Admin: 01/05/17 21:14 Dose: 5,000 units Piperacillin Sod/Tazobactam Sod (Zosyn 2.25 Gm Iv Premix) 2.25 gm in 50 mls @ 100 mls/hr IVPB Q8H [facility] Last Admin: 01/06/17 06:01 Dose: 100 mls/hr Insulin Glargine (Lantus) 10 unit SC HS [facility] Last Admin: 01/05/17 21:15 Dose: 10 units Insulin Human Regular (Novolin R) 0 unit SC ACHS [facility] PRN Reason: Protocol Last Admin: 01/05/17 21:21 Dose: Not Given Levothyroxine Sodium (Synthroid) 75 mcg PO DAILY@0630 [facility] Last Admin: 01/06/17 05:54 Dose: 75 mcg Lidocaine (Lidoderm) 1 ea TD DAILY [facility] Last Admin: 01/05/17 10:47 Dose: 1 ea Metoprolol Tartrate (Lopressor) 25 mg PO BID [facility] Last Admin: 01/05/17 18:42 Dose: 25 mg Rosuvastatin Calcium (Crestor) 5 mg PO HS [facility] Last Admin: 01/05/17 21:15 Dose: 5 mg Sevelamer Carbonate (Renvela) 1,600 mg PO TIDCC [facility] Last Admin: 01/05/17 17:14 Dose: 1,600 mg Sodium Chloride (Sodium Chloride Tab) 1 gm PO TID [facility] Last Admin: 01/05/17 17:14 Dose: 1 gm Tramadol HCl (Ultram) 25 mg PO Q6H PRN PRN Reason: Pain, severe (8-10) Last Admin: 01/06/17 02:35 Dose: 25 mg Trimethoprim/Sulfamethoxazole (Bactrim Ss Tab) 1 tab PO DAILY [facility] Last Admin: 01/05/17 09:46 Dose: 1 tab - Labs Labs: 01/06/17 06:44 01/06/17 06:44 PT 13.1 SECONDS (9.7-12.2) H 12/26/16 08:05 INR 1.2 12/26/16 08:05 APTT 27 SECONDS (21-34) 01/01/17 06:00 Assessment and Plan - Assessment and Plan (Free Text) Assessment: Patient seen and evaluated with the medical record technician Plan of care discussed and documented
[2017-01-04] MEDS ORDERED: Metoprolol 1 mg/ml Inj IVP ONE ×3 (13:26→13:45)
--- NOTE | 2017-01-04 13:34 | CP.PCM.PN ---
Subjective - Date & Time of Evaluation Date of Evaluation: 01/04/17 Time of Evaluation: 13:30 - Subjective Subjective: Hospitalist Progress Note Patient was seen and examined at 1:30 PM 01/04/17 Please see Assessment and Plans below for details Upon ROS NO chest pain SOB/Breathing is better on the HiFlow Oxygen Eating but not as much as before as she states that she gets nauseous NO burning with urination but states that she is not urinating a lot Still complains of low back pain and weakness NO other complaints - Constitutional Appears: In Acute Distress, Chronically Ill - Head Exam Head Exam: NORMAL INSPECTION - Eye Exam Eye Exam: EOMI, Pupils are round, equal, reactive to light/accomodation - ENT Exam ENT Exam: Mucous Membranes Dry - Respiratory Exam Respiratory Exam: Decreased Breath Sounds, Course breath sounds throughout absent: Rales, Rhonchi, Stridor - Cardiovascular Exam Cardiovascular Exam: RRR, +S1, +S2 - GI/Abdominal Exam GI & Abdominal Exam: Soft, Normal Bowel Sounds. absent: Distended, Firm, Guarding, Rigid, Tenderness, Rebound - Extremities Exam Extremities Exam: Normal Capillary Refill. absent: Pedal Edema, Tenderness - Neurological Exam Neurological Exam: Alert, Awake, Oriented x3 - Psychiatric Exam Psychiatric exam: Normal Affect, Normal Mood - Skin Skin Exam: Dry, Intact, Normal Color, Warm Assessment and Plan - Assessment and Plan (Free Text) Assessment: (1) Acute Respiratory Distress Assessment and Plan: * Patient has history of COPD per pulmonary * Patient requires max oxygen support per ICU * CT Chest (12/31): interval worsening of nonspecific ground glass opacities in the lungs since the previous exam. Interstitial septal thickening and crazy paving appearance of the lungs. Mild cardiomegaly. Small left pleural effusion. Diffuse lytic bone lesion consistent with multiple myeloma * Solumedrol 40mg IV Q 8 hours * Will need BAL/Bronch to see if patient has invasive myeloma to the lung-->ICU has discussed with patient's pulm 12/31 (2) Fluid Overload Assessment and Plan: * ProBNP : 72947 * Contributing factors: acute on chronic kidney disease and hx of diastolic congestive heart failure * Vascular Surgery: Dr. Ontiveros-->notified by emergency room; for emergent dialysis access * Nephrology: Dr Blil on board-->acute on chronic kidney insufficiency, hypercalcemia; emergent dialysis * Chest Xray (12/25/16): prominent diffuse increased interstital lung markings throughout both lungs suggestive for edema and/or infiltrate * Chest Xray (12/27/16): persistent prominent diffuse increased consolidative changes throughtout both lungs with coarse reticular interstital airspce opacities. More focal confluent airspace consolidative changes in the right right midlung zone and left lung base with small left plueral effusion. Cardiomegaly * Echocardiogram (12/27/16) moderate left ventricular diastolic dysfunction. left atrium is moderately dilated. right atrium is mildly dilated, mitral annular calcification is moderate. mitral velve is calcified and displays decreased opening. Mild mitral valve stenosis. severe pulmonary hypertension., EF: 60% * Monitor intake output * Daily weights * 12/27/16: 2nd dialysis session today--> 2 liters removed * 12/28/16: Spoke with Dr. Bill-->dialysis for tomorrow; pending chest xray read * 12/29/16: stable heterogenous infiltrates are seen diffusely bilaterally and are unchanged compared to 12/28/16 prominent cardiac silhouteete is stable. Fractures at the left 3rd, 6th, and 9th ribs identified at latter stage of healing * 12/30/16: Had dialysis today * 12/31/16: Dialysis not improving lung exam * 01/03/17: Chest X Ray shows mild pulmonary congestion (3) Acute kidney injury superimposed on chronic kidney disease Assessment and Plan: * Nephrology Dr. Bill consulted-->help appreciated * Hepatitis panel: Negative * HIV: negative * Mycoplasma Igm: negative * Legionella; Negative * Vascular Surgery: Dr. 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 * Recommended for SPEP, IPEP--->pending * free light chain lambda: 803471.7 * free light chain kappa: 17.5 * 24 hr urine UPEP-->resulting--> 2108 (high) * urine IPE * beta2 microglobulin * LDH: 522 * Prior SPEP: (12/02/16): M Adarsh migrating in the gamma globulin region; 12/25 : M spike * immuonfixation: pending * BUN/Cr elevated today: 90/7.7 * 12/25 Urinanalysis: +leuk esterase, 2+ protein, + Wbc and + RBC * urine culture: no growth (<1000 CFU/ml) * Ct Abdomen/Pelvis (12/25/16): No evidence of nephrolithiasis or hydronephrosis , 1,5 cm exophyitc high attentuation lesion at the mid to lower pole of right kidney. possibility of renal cell carcinoma should be excluded. 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 Airspace consolidation at left lobe associated with small pleural fussion suspicious for pneumonia * HD through 01/04/17 Status: Acute (4) Possible Multiple Myeloma Assessment and Plan: * Criteria: anemia, renal insufficiency, hypercalcemia * Nephrology Dr. Bill consulted-->help appreciated * Vascular Surgery: Dr. Ontiveros-->help appreciated * Surgery consulted and permacath placed * Heme-Oncology: Dr Martinez-->help appreciated * Possible patient has light chain multiple myeloma * free light chain lambda: 542843.7 * free light chain kappa: 17.5 * 24 hr urine UPEP--> 2108 (high) * urine IPE--->--->pending * beta2 microglobulin--->--->pending * LDH: 522 * Prior SPEP: (12/02/16): M Adarsh migrating in the gamma globulin region; 12/25 : M spike * 12/27: discussed with Dr. Martinez, patient's for bone marrow biopsy for Sunday and possible start chemotherapy. * Echocardiogram (12/27/16) moderate left ventricular diastolic dysfunction. left atrium is moderately dilated. right atrium is mildly dilated, mitral annular calcification is moderate. mitral valve is calcified and displays decreased opening. Mild mitral valve stenosis. severe pulmonary hypertension., EF: 60% * Monitor intake output * BUN/Cr elevated today: 90/7.7 * 12/25 Urinanalysis: +leuk esterase, 2+ protein, + Wbc and + RBC * urine culture: no growth (<1000 CFU/ml) * Ct Abdomen/Pelvis (12/25/16): No evidence of nephrolithiasis or hydronephrosis , 1,5 cm exophyitc high attentuation lesion at the mid to lower pole of right kidney. possibility of renal cell carcnioma should be excluded. 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 Airspace consolidation at left lobe associated with small pleural fussion suspicious for pneumonia * Chest xray w rib (12/29/16): stable heterogenous infiltrates are seen diffusely bilaterally and are unchanged compared to 12/28/16 prominent cardiac silhouette is stable. Fractures at the left 3rd, 6th, and 9th ribs identified at latter stage of healing * 12/30: Heme-onc unable to do bone marrow biopsy because of patient's shortness of breathe; reports does not need bone marrow biopsy at this time; recommend for port a cath * 12/31: given possibility of invasive myeloma to the lung; may need bronch/bal for diagnosis * 01/03: patient had Angela Cath placed and had Bone Marrow Biopsy by Dr. Martinez \ * 01/04: Pathology report on Bone Marrow Bx is pending and patient started on Chemo after HD Status: Acute (5) Hypercalcemia Assessment and Plan: * Likely secondary to Multiple Myeloma * Nephrology (Dr. Bill) on board-->help appreciated * Heme-onc (Dr. Martinez) on board--->help appreciated * Bone marrow biopsy not performed and awaiting performance of broanchial wash/ lavage * PTH related Protein: pending * PTH intact: 14 * Vitamin D: 66.6 * ОЛЕГ: 28 * Ionized Calcium: 6.7 * Possible patient has light chain multiple myeloma * Recommended for SPEP, IPEP--->pending * free light chain lambda: 564539.7 * free light chain kappa: 17.5 * 24 hr urine UPEP--> 2108 (high) * urine IPE--->--->pending * beta2 microglobulin--->--->pending * LDH: 522 * Prior SPEP: (12/02/16): M Adarsh migrating in the gamma globulin region; 12/25 : M spike Status: Acute (6) Possible CHF exacerbation Assessment and Plan: * History of diastolic congestive heart failure * Cardiology (Dr. Little) on consult; covering for Dr. Lynch's patients * ProBNP today: 01153 * Echocardiogram (12/27/16) moderate left ventricular diastolic dysfunction. left atrium is moderately dilated. right atrium is mildly dilated, mitral annular calcification is moderate. mitral valve is calcified and displays decreased opening. Mild mitral valve stenosis. severe pulmonary hypertension., EF: 60% * monitor intake and output * Patient has acute renal failure unable to start ARB/ОЛЕГ * Patient's blood pressure is normotensive w/o beta-vania * Start Crestor 5mg POqHS * Used to be on Cardizem prior hospitalization but off * Daily Weights Status: Acute (7) Anemia Assessment and Plan: * Heme-onc (Dr. Martinez) on board-->help appreciated * Discussed with PMD: Dr. Winkler-->patient has had workup including GI workup in 2017 in regards to anemia * Thought to be chronic secondary to kidney disease; anemia of critical disease * Continue home meds Ferrous sulfate 325 mg daily * s/p 1 unit of PRBC on 12/25 7.2 * 12/25 stool occult blood: negative * Prior hospitalizations included in patient's chart; awaiting copy of report of GI workup * 01/01: received 2 units PRBC for Hgb<6 * 01/02: Hgb improved > 9: monitor * 01/03 and 01/04: HgB/Hct stable Status: Chronic (8) Atrial fibrillation Assessment and Plan: * Cardiology (Dr. Little) covering for Dr. Lynch's patients * Continue home meds: Amiodarone 200 mg daily, Cardizem 240 mg daily * Patient is not on anticoagulation secondary to anemia * CHADS: 4 (DM, Age, HTN, CHF) * HASBLED:2 (Age and Renal Disease) * 01/04: had episode of rapid AF after HD. Was given Amiodarone 150 mg over 10 minutes and the rate was controlled. Status: Acute (9) HTN (hypertension) Assessment and Plan: * Monitor vital signs * Patient is on dialysis secondary to MARIA EUGENIA secondary to Multiple Myeloma Status: Chronic (10) Leukocytosis Assessment and Plan: * In the ED, order for dose of Zosyn and Vancomycin on 12/25 * Strep, legionella: negative and mycoplasma IgM: negative * Patient recently at the hospital within 90 days-->consideration for possible hospital acquired pneumonia * Patient does not meet sepsis critera (04/19: leukocytosis) * Start Zosyn 2.25 gr IV Q8H (active since 12/25/16) and Doxcycline 100mg IV Q 12hours (active since 12/25/16) * Blood Culture (12/25/16): no growth after 5 days X 2 * Urine culture (12/25/16): <1000 * Procalcitonin low * Blood Culture (12/29/16): no growth after 3 days x 2 * Start on Solumedrol 40mg IV Q 8 hours per pulmonary (active since 12/27/16) * 01/02: currently on Zozyn 2.25 gm IV Q8H and Doxycycline 100 mg IV Q12H and Bactrim DS 2 tab PO Q24 H (01/02/17: to cover for PCP) * 01/03: started on Zovirax 400 mg PO 1x/day by Heme/Onc Dr. 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 Assessment and Plan: * Continue home meds: Glipizide 10 mg daily * daily Accuchecks QAC and HS * [id number]: 6.1 Status: Chronic (14) Hypothyroidism Status: Chronic * TSH: 4.84 * Levothyroxine 75mcg/day Status: Chronic (15) Hepatitis Assessment and Plan: * RUQ pain will f/u Amylase, lipase which are normal * LFTs are normal Status: Chronic (16) History of back pain Assessment and Plan: * held Magnesium oxide 400 mg BID * Tramadol 25 mg 1 tablet Q6hr for break through pain ordered 01/02 * On Lidoderm patch * likely secondary to lytic lesion likely secondary to Multiple Myeloma Status: Acute (17) Lower extremity pain Assessment and Plan: * Held Magnesium oxide 400 mg BID; Tramadol-Acetaminophen 32.5-325 mg 2 tablets Q6hr Status: Acute (18) Prophylactic measure Assessment and Plan: * DVT: SCDs b/l; heparin 5000 units subq12 * GI: Pepcid 20mg PO daily * Monitor intake and output * Daily Weight * PT/OT eval Status: Acute Objective - Vital Signs/Intake and Output Vital Signs (last 24 hours): Temp Pulse Resp BP Pulse Ox 98.2 F 153 H 16 91/55 L 98 01/04/17 13:00 01/04/17 13:00 01/04/17 13:00 01/04/17 13:00 01/04/17 13:00 Intake and Output: 01/04/17 01/04/17 06:59 18:59 Intake Total 275 Balance 275 - Medications Medications: Current Medications Acyclovir (Zovirax) 400 mg PO DAILY [facility] Last Admin: 01/04/17 10:21 Dose: 400 mg Albuterol/Ipratropium (Duoneb 3 Mg/0.5 Mg (3 Ml) Ud) 3 ml INH RQ6 [facility] Last Admin: 01/04/17 07:39 Dose: 3 ml Famotidine (Pepcid) 20 mg PO DAILY [facility] Last Admin: 01/04/17 10:08 Dose: 20 mg Ferrous Sulfate (Feosol) 325 mg PO DAILY [facility] Last Admin: 01/04/17 10:08 Dose: 325 mg Glipizide (Glucotrol) 10 mg PO DAILY [facility] Last Admin: 01/04/17 10:07 Dose: 10 mg Heparin Sodium (Porcine) (Heparin) 5,000 units SC Q12 [facility] Last Admin: 12/31/16 21:01 Dose: 5,000 units Piperacillin Sod/Tazobactam Sod (Zosyn 2.25 Gm Iv Premix) 2.25 gm in 50 mls @ 100 mls/hr IVPB Q8H [facility] Last Admin: 01/04/17 06:36 Dose: 100 mls/hr Doxycycline Hyclate 100 mg/ (Sodium Chloride) 100 mls @ 100 mls/hr IVPB Q12H [facility] Last Admin: 01/03/17 21:33 Dose: 100 mls/hr Insulin Human Regular (Novolin R) 0 unit SC ACHS [facility] PRN Reason: Protocol Last Admin: 01/04/17 12:06 Dose: 2 unit Levothyroxine Sodium (Synthroid) 75 mcg PO DAILY@0630 [facility] Last Admin: 01/04/17 05:36 Dose: 75 mcg Lidocaine (Lidoderm) 1 ea TD DAILY [facility] Last Admin: 01/04/17 10:18 Dose: Not Given Methylprednisolone (Solu-Medrol) 40 mg IVP Q8H [facility] Last Admin: 01/04/17 10:10 Dose: 40 mg Metoprolol Tartrate (Lopressor) 5 mg IVP ONCE ONE Stop: 01/04/17 13:29 Rosuvastatin Calcium (Crestor) 5 mg PO HS [facility] Last Admin: 01/03/17 21:33 Dose: 5 mg Sevelamer Carbonate (Renvela) 1,600 mg PO TIDCC [facility] Last Admin: 01/04/17 12:07 Dose: 1,600 mg Tramadol HCl (Ultram) 25 mg PO Q6H PRN PRN Reason: Pain, severe (8-10) Last Admin: 01/03/17 22:46 Dose: 25 mg Trimethoprim/Sulfamethoxazole (Bactrim Ss Tab) 1 tab PO DAILY [facility] Last Admin: 01/04/17 10:08 Dose: 1 tab - Labs Labs: 01/04/17 06:16 01/04/17 06:16 PT 13.1 SECONDS (9.7-12.2) H 12/26/16 08:05 INR 1.2 12/26/16 08:05 APTT 27 SECONDS (21-34) 01/01/17 06:00
--- NOTE | 2017-01-04 14:24 | CP.PCM.PN ---
Subjective - Date & Time of Evaluation Date of Evaluation: 01/04/17 Time of Evaluation: 14:20 - Subjective Subjective: Vascular Surgery Dr. Ontiveros Pt S&E @bedside. portacath placed yesterdayw/o complication.P t tolerated the procedure well. NAEO. no complaints at this time. tolerating diet. Objective - Vital Signs/Intake and Output Vital Signs (last 24 hours): Temp Pulse Resp BP Pulse Ox 98.2 F 142 H 20 81/46 L 90 L 01/04/17 13:00 01/04/17 14:12 01/04/17 14:12 01/04/17 14:12 01/04/17 14:12 Intake and Output: 01/04/17 01/04/17 06:59 18:59 Intake Total 275 Balance 275 - Medications Medications: Current Medications Acyclovir (Zovirax) 400 mg PO DAILY [facility] Last Admin: 01/04/17 10:21 Dose: 400 mg Albuterol/Ipratropium (Duoneb 3 Mg/0.5 Mg (3 Ml) Ud) 3 ml INH RQ6 [facility] Last Admin: 01/04/17 13:49 Dose: Not Given Famotidine (Pepcid) 20 mg PO DAILY [facility] Last Admin: 01/04/17 10:08 Dose: 20 mg Ferrous Sulfate (Feosol) 325 mg PO DAILY [facility] Last Admin: 01/04/17 10:08 Dose: 325 mg Glipizide (Glucotrol) 10 mg PO DAILY [facility] Last Admin: 01/04/17 10:07 Dose: 10 mg Heparin Sodium (Porcine) (Heparin) 5,000 units SC Q12 [facility] Last Admin: 12/31/16 21:01 Dose: 5,000 units Piperacillin Sod/Tazobactam Sod (Zosyn 2.25 Gm Iv Premix) 2.25 gm in 50 mls @ 100 mls/hr IVPB Q8H [facility] Last Admin: 01/04/17 14:13 Dose: 100 mls/hr Insulin Human Regular (Novolin R) 0 unit SC ACHS [facility] PRN Reason: Protocol Last Admin: 01/04/17 12:06 Dose: 2 unit Levothyroxine Sodium (Synthroid) 75 mcg PO DAILY@0630 [facility] Last Admin: 01/04/17 05:36 Dose: 75 mcg Lidocaine (Lidoderm) 1 ea TD DAILY [facility] Last Admin: 01/04/17 10:18 Dose: Not Given Methylprednisolone (Solu-Medrol) 40 mg IVP Q8H [facility] Last Admin: 01/04/17 10:10 Dose: 40 mg Rosuvastatin Calcium (Crestor) 5 mg PO HS [facility] Last Admin: 01/03/17 21:33 Dose: 5 mg Sevelamer Carbonate (Renvela) 1,600 mg PO TIDCC [facility] Last Admin: 01/04/17 12:07 Dose: 1,600 mg Tramadol HCl (Ultram) 25 mg PO Q6H PRN PRN Reason: Pain, severe (8-10) Last Admin: 01/03/17 22:46 Dose: 25 mg Trimethoprim/Sulfamethoxazole (Bactrim Ss Tab) 1 tab PO DAILY [facility] Last Admin: 01/04/17 10:08 Dose: 1 tab - Labs Labs: 01/04/17 06:16 01/04/17 06:16 PT 13.1 SECONDS (9.7-12.2) H 12/26/16 08:05 INR 1.2 12/26/16 08:05 APTT 27 SECONDS (21-34) 01/01/17 06:00 - Constitutional Appears: Non-toxic, No Acute Distress - Head Exam Head Exam: NORMAL INSPECTION - Eye Exam Eye Exam: Normal appearance - ENT Exam ENT Exam: Mucous Membranes Moist - Neck Exam Additional comments: RIJ permacath; LIJ portacath both dressings c/d/i - Respiratory Exam Respiratory Exam: absent: Accessory Muscle Use, Respiratory Distress, NORMAL BREATHING PATTERN - Cardiovascular Exam Cardiovascular Exam: Tachycardia, Irregular Rhythm - GI/Abdominal Exam GI & Abdominal Exam: Soft. absent: Distended - Neurological Exam Neurological Exam: Alert, Awake - Psychiatric Exam Psychiatric exam: Normal Affect, Normal Mood - Skin Skin Exam: Dry, Intact, Warm Additional comments: ecchymosis R arm various stages healing Assessment and Plan - Assessment and Plan (Free Text) Assessment: 81 y/o F POD#1 s/p portacath placement w/recent diagnosis of Multiple Myeloma - Port utilization per Dr. Ontiveros - continue medical management - future vein mapping for AVF, please reconsult if needed Pt discussed w/ Dr. Weston Dotson DO PGY2
[2017-01-04] MEDS ORDERED: SODIUM CHLORIDE 0.9% IV ONE ×2 (15:00→15:30)
[2017-01-04] MEDS ORDERED: DEXAMETHASONE IV ONE (15:00)
[2017-01-04] MEDS ORDERED: ONDANSETRON IV ONE (15:00)
[2017-01-04] MEDS ORDERED: BORTEZOMIB IV ONE (15:30)
[2017-01-04] MEDS ORDERED: Midazolam 2 MG/2 ML VIAL IVP ONE (16:15)
[2017-01-04] MEDS ORDERED: Sodium Chloride 0.9% 500 ML IV ONE (16:45)
[2017-01-04 16:57] LABS: ABG ALLEN TEST POS; ARTERIAL BLOOD HGB O2 SAT 96.1 % (95.0-98.0); CARBOXYHEMOGLOBIN 1.3 % (0.5-1.5); DRAW SITE RRA; HHB 1.1 % (0.0-5.0); METHEMOGLOBIN 1.4 % (0.0-3.0)
--- NOTE | 2017-01-04 19:05 | CP.PCM.PN ---
Subjective - Date & Time of Evaluation Date of Evaluation: 01/04/17 Time of Evaluation: 03:00 - Subjective Subjective: dictated Objective - Vital Signs/Intake and Output Vital Signs (last 24 hours): Temp Pulse Resp BP Pulse Ox 98.4 F 71 19 102/53 L 98 01/04/17 16:00 01/04/17 18:41 01/04/17 18:41 01/04/17 18:41 01/04/17 18:41 Intake and Output: 01/04/17 01/05/17 18:59 06:59 Intake Total 120 Output Total 80 Balance 40 - Medications Medications: Current Medications Acyclovir (Zovirax) 400 mg PO DAILY [facility] Last Admin: 01/04/17 10:21 Dose: 400 mg Albuterol/Ipratropium (Duoneb 3 Mg/0.5 Mg (3 Ml) Ud) 3 ml INH RQ6 [facility] Last Admin: 01/04/17 13:49 Dose: Not Given Famotidine (Pepcid) 20 mg PO DAILY [facility] Last Admin: 01/04/17 10:08 Dose: 20 mg Ferrous Sulfate (Feosol) 325 mg PO DAILY [facility] Last Admin: 01/04/17 10:08 Dose: 325 mg Glipizide (Glucotrol) 10 mg PO DAILY [facility] Last Admin: 01/04/17 10:07 Dose: 10 mg Heparin Sodium (Porcine) (Heparin) 5,000 units SC Q12 [facility] Last Admin: 12/31/16 21:01 Dose: 5,000 units Piperacillin Sod/Tazobactam Sod (Zosyn 2.25 Gm Iv Premix) 2.25 gm in 50 mls @ 100 mls/hr IVPB Q8H [facility] Last Admin: 01/04/17 14:13 Dose: 100 mls/hr Amiodarone HCl 900 mg/ (Dextrose) 500 mls @ 16.66 mls/hr IV .Q24H ONE; 0.5 MG/ MIN PRN Reason: Protocol Stop: 01/05/17 16:21 Amiodarone HCl 900 mg/ (Dextrose) 500 mls @ 33.33 mls/hr IV .Q15H1M ONE; 1 MG/ MIN PRN Reason: Protocol Stop: 01/05/17 07:22 Last Admin: 01/04/17 18:41 Dose: 33.33 mls/hr Insulin Human Regular (Novolin R) 0 unit SC ACHS [facility] PRN Reason: Protocol Last Admin: 01/04/17 18:40 Dose: 6 unit Levothyroxine Sodium (Synthroid) 75 mcg PO DAILY@0630 [facility] Last Admin: 01/04/17 05:36 Dose: 75 mcg Lidocaine (Lidoderm) 1 ea TD DAILY [facility] Last Admin: 01/04/17 10:18 Dose: Not Given Methylprednisolone (Solu-Medrol) 40 mg IVP Q8H [facility] Last Admin: 01/04/17 18:41 Dose: 40 mg Rosuvastatin Calcium (Crestor) 5 mg PO HS [facility] Last Admin: 01/03/17 21:33 Dose: 5 mg Sevelamer Carbonate (Renvela) 1,600 mg PO TIDCC [facility] Last Admin: 01/04/17 12:07 Dose: 1,600 mg Tramadol HCl (Ultram) 25 mg PO Q6H PRN PRN Reason: Pain, severe (8-10) Last Admin: 01/03/17 22:46 Dose: 25 mg Trimethoprim/Sulfamethoxazole (Bactrim Ss Tab) 1 tab PO DAILY [facility] Last Admin: 01/04/17 10:08 Dose: 1 tab - Labs Labs: 01/04/17 06:16 01/04/17 06:16 PT 13.1 SECONDS (9.7-12.2) H 12/26/16 08:05 INR 1.2 12/26/16 08:05 APTT 27 SECONDS (21-34) 01/01/17 06:00
[2017-01-04] MEDS: Tramadol 25 mg PO PRN (23:48)
--- NOTE | 2017-01-05 01:16 | PN ---
DATE: SUBJECTIVE: Went to see her today. She was very dyspneic and she was tachycardic in atrial fibrillation. She was on oxygen, but I am told she went into atrial fibrillation after she had the dialysis. She was tachycardic at the rate of 133; however, she was awake. Fashion Designer is following her. PHYSICAL EXAMINATION: VITAL SIGNS: Patient is afebrile, pulse is 75, blood pressure is 85/44, respirations are 19. HEENT: Head is atraumatic, normocephalic. NECK: Supple. LUNGS: Clear. No crackles or rales present. HEART: S1 and S2 is irregularly regular. ABDOMEN: Soft. Nontender. No guarding, no rigidity present. EXTREMITIES: Have no edema. She is on steroids now. LABORATORY DATA: Her white count is 25.9, hemoglobin 10.5, hematocrit 31.4, platelet count is 174. She is new-onset dialysis. MEDICATIONS: She is now on acyclovir, Bactrim, and remains on Zosyn at this time. PLAN: So, at this time her cultures have all been negative. Her x-ray shows mild pulmonary vascular congestion. So, at this time she remains on Zosyn. She was worked up for multiple myeloma. Remains now with atrial fibrillation and has respiratory failure, has been on high-flow oxygen. We will follow. Pau Thakkar MD
[2017-01-05] MEDS: Albuterol-Ipratrop 3 mg / 0.5 (3 ml) UD INH SCH ×4 (01:50→20:57)
[2017-01-05] MEDS: MethylPREDNISolone 40 mg Vial IVP SCH ×2 (02:11→09:49)
[2017-01-05] MEDS: Levothyroxine 75 MCG TAB PO SCH (06:20)
[2017-01-05] MEDS: Piperacill/Tazo 2.25gm in Dex 2.25 GM/50 ML BAG IVPB SCH ×3 (06:20→22:36)
[2017-01-05 06:34] LABS: BASO % 0.1 % (0.0-2.0); HEMATOCRIT 30.4 % (34.0-47.0); LYMPH # 0.4 K/uL (1.0-4.3); LYMPH % 1.5 % (20.0-40.0); MEAN CELL VOLUME 92.5 fL (81.0-99.0); MEAN CORPUSCULAR HEMOGLOBIN 30.6 pg (27.0-31.0); MEAN PLATELET VOLUME 9.6 fL (7.2-11.7); MONO # 0.4 K/uL (0.0-0.8); MONO % 1.7 % (0.0-10.0); PLATELET COUNT 147 K/uL (130-400); RED CELL DISTRIBUTION WIDTH 16.9 % (11.5-14.5); WHITE BLOOD COUNT 25.2 K/uL (4.8-10.8)
[2017-01-05 06:52] LABS: ALB/GLOB RATIO 1.4 (1.0-2.1); BILIRUBIN,TOTAL 0.6 mg/dL (0.2-1.3); CALCIUM 6.7 mg/dl (8.6-10.4); MAGNESIUM 1.8 mg/dL (1.6-2.3); PHOSPHOROUS 5.5 mg/dL (2.5-4.5); POTASSIUM 4.4 mmol/L (3.6-5.2); TOTAL PROTEIN 5.3 g/dL (6.3-8.3)
[2017-01-05 08:21] LABS: NEUTROPHIL 95 % (50-75); TOTAL CELLS COUNTED 100
[2017-01-05 08:22] LABS: LARGE PLATELETS PRESENT
[2017-01-05] MEDS: (Novolin R) Insulin Human Regular 100 units/ml vial SC SCH ×4 (08:42→21:21)
[2017-01-05] MEDS: Tmp-Smz 400 mg-80 mg SS Tab PO SCH (09:46)
[2017-01-05] MEDS: Lidocaine 5% Patch TD SCH (10:47)
--- NOTE | 2017-01-05 12:00 | CP.PCM.PN ---
Subjective - Date & Time of Evaluation Date of Evaluation: 01/05/17 Time of Evaluation: 11:58 - Subjective Subjective: seen and examined up in chair no complaints anuric permcath used for chemo yesterday Objective - Vital Signs/Intake and Output Vital Signs (last 24 hours): Temp Pulse Resp BP Pulse Ox 98 F 63 13 96/37 L 98 01/05/17 07:48 01/05/17 07:00 01/05/17 11:27 01/05/17 06:43 01/05/17 07:00 Intake and Output: 01/05/17 01/05/17 06:59 18:59 Intake Total 650 467 Balance 650 467 - Medications Medications: Current Medications Acyclovir (Zovirax) 400 mg PO DAILY [facility] Last Admin: 01/05/17 09:46 Dose: 400 mg Albuterol/Ipratropium (Duoneb 3 Mg/0.5 Mg (3 Ml) Ud) 3 ml INH RQ6 [facility] Last Admin: 01/05/17 07:39 Dose: 3 ml Famotidine (Pepcid) 20 mg PO DAILY [facility] Last Admin: 01/05/17 09:45 Dose: 20 mg Ferrous Sulfate (Feosol) 325 mg PO DAILY [facility] Last Admin: 01/05/17 09:45 Dose: 325 mg Glipizide (Glucotrol) 10 mg PO DAILY [facility] Heparin Sodium (Porcine) (Heparin) 5,000 units SC Q12 [facility] Last Admin: 12/31/16 21:01 Dose: 5,000 units Piperacillin Sod/Tazobactam Sod (Zosyn 2.25 Gm Iv Premix) 2.25 gm in 50 mls @ 100 mls/hr IVPB Q8H [facility] Last Admin: 01/05/17 06:20 Dose: 100 mls/hr Amiodarone HCl 900 mg/ (Dextrose) 500 mls @ 16.66 mls/hr IV .Q24H ONE; 0.5 MG/ MIN PRN Reason: Protocol Stop: 01/06/17 00:39 Last Admin: 01/05/17 00:40 Dose: Not Given Insulin Human Regular (Novolin R) 0 unit SC ACHS [facility] PRN Reason: Protocol Last Admin: 01/05/17 08:42 Dose: 4 unit Levothyroxine Sodium (Synthroid) 75 mcg PO DAILY@0630 [facility] Last Admin: 01/05/17 06:20 Dose: 75 mcg Lidocaine (Lidoderm) 1 ea TD DAILY [facility] Last Admin: 01/05/17 10:47 Dose: 1 ea Methylprednisolone (Solu-Medrol) 40 mg IVP DAILY [facility] Rosuvastatin Calcium (Crestor) 5 mg PO HS [facility] Last Admin: 01/04/17 21:23 Dose: 5 mg Sevelamer Carbonate (Renvela) 1,600 mg PO TIDCC [facility] Last Admin: 01/05/17 08:41 Dose: 1,600 mg Sodium Chloride (Sodium Chloride Tab) 1 gm PO TID [facility] Tramadol HCl (Ultram) 25 mg PO Q6H PRN PRN Reason: Pain, severe (8-10) Last Admin: 01/04/17 23:48 Dose: 25 mg Trimethoprim/Sulfamethoxazole (Bactrim Ss Tab) 1 tab PO DAILY [facility] Last Admin: 01/05/17 09:46 Dose: 1 tab - Labs Labs: 01/05/17 06:26 01/05/17 06:24 PT 13.1 SECONDS (9.7-12.2) H 12/26/16 08:05 INR 1.2 12/26/16 08:05 APTT 27 SECONDS (21-34) 01/01/17 06:00 - Constitutional Appears: Non-toxic, No Acute Distress, Chronically Ill - Head Exam Head Exam: NORMAL INSPECTION - Eye Exam Eye Exam: Normal appearance - ENT Exam ENT Exam: Mucous Membranes Moist, Normal Exam - Neck Exam Neck Exam: Normal Inspection - Respiratory Exam Respiratory Exam: Clear to Ausculation Bilateral, NORMAL BREATHING PATTERN - Cardiovascular Exam Cardiovascular Exam: REGULAR RHYTHM, RRR (rt chest permcath, left chest portacath dressing) - GI/Abdominal Exam GI & Abdominal Exam: Distended, Soft, Normal Bowel Sounds - Extremities Exam Extremities Exam: Normal Inspection Assessment and Plan (1) Anemia Status: Acute (2) Hypercalcemia Status: Acute (3) Renal failure Status: Acute (4) Acute kidney injury superimposed on chronic kidney disease Status: Acute (5) Atrial fibrillation with controlled ventricular response Status: Acute - Assessment and Plan (Free Text) Assessment: will likely need alf hd av access when stable therapy for myeloma per oncology no rani
--- NOTE | 2017-01-05 14:14 | CP.CCUPN ---
<Jc Stevens - Last Filed: 01/05/17 18:51> CCU Objective - Vital Signs / Intake & Output Vital Signs (Last 4 hours): Vital Signs Temp Pulse Resp BP Pulse Ox 01/05/17 18:42 130/61 01/05/17 18:00 76 14 98 01/05/17 17:43 76 17 130/61 97 01/05/17 17:00 75 11 L 99 01/05/17 16:43 72 16 124/56 L 96 01/05/17 15:56 12 01/05/17 15:43 76 12 131/61 79 L 01/05/17 15:29 98.6 F 01/05/17 15:00 120 H 16 96 Intake and Output (Last 8hrs): Intake & Output 01/05/17 01/05/17 01/05/17 06:59 14:59 22:59 Intake Total 853.9 246.8 Output Total 0 0 Balance 853.9 246.8 Weight 166 lb 8 oz Intake: Intake, IV Amount 483.9 116.8 Right Wrist 116.7 66.8 right arm 367.2 50 Oral 370 130 Output: Urine 0 0 Urine, Voided 0 0 - Medications Active Medications: Active Medications Generic Name Dose Route Start Last Admin Trade Name Freq PRN Reason Stop Dose Admin Acyclovir 400 mg 01/03/17 10:00 01/05/17 09:46 Zovirax PO 400 mg DAILY MARIBETH Administration Albuterol/Ipratropium 3 ml 01/02/17 14:00 01/05/17 13:30 Duoneb 3 Mg/0.5 Mg (3 Ml) Ud INH 3 ml RQ6 MARIBETH Administration Famotidine 20 mg 12/27/16 10:00 01/05/17 09:45 Pepcid PO 20 mg DAILY MARIBETH Administration Ferrous Sulfate 325 mg 12/26/16 10:00 01/05/17 09:45 Feosol PO 325 mg DAILY MARIBETH Administration Glipizide 10 mg 01/05/17 11:48 Glucotrol PO DAILY MARIBETH Heparin Sodium (Porcine) 5,000 units 12/30/16 10:00 12/31/16 21:01 Heparin SC 5,000 units Q12 MARIBETH Administration Piperacillin Sod/Tazobactam Sod 2.25 gm in 50 mls @ 100 mls/hr 12/25/16 23:00 09/22/17 15:55 Zosyn 2.25 Gm Iv Premix IVPB 100 mls/hr Q8H MARIBETH Administration Amiodarone HCl 900 mg/ 500 mls @ 16.66 mls/hr 01/05/17 00:40 01/05/17 00:40 Dextrose IV 01/06/17 00:39 Not Given .Q24H ONE Protocol 0.5 MG/MIN Insulin Glargine 10 unit 01/05/17 22:00 Lantus SC HS MARIBETH Insulin Human Regular 0 unit 12/31/16 10:15 01/05/17 17:14 Novolin R SC 10 unit ACHS MARIBETH Administration Protocol Levothyroxine Sodium 75 mcg 12/26/16 06:30 01/05/17 06:20 Synthroid PO 75 mcg DAILY@0630 MARIBETH Administration Lidocaine 1 ea 12/30/16 21:00 01/05/17 10:47 Lidoderm TD 1 ea DAILY MARIBETH Administration Metoprolol Tartrate 25 mg 01/05/17 18:00 01/05/17 18:42 Lopressor PO 25 mg BID MARIBETH Administration Rosuvastatin Calcium 5 mg 12/30/16 22:00 01/04/17 21:23 Crestor PO 5 mg HS MARIBETH Administration Sevelamer Carbonate 1,600 mg 12/30/16 08:00 01/05/17 17:14 Renvela PO 1,600 mg TIDCC MARIBETH Administration Sodium Chloride 1 gm 01/05/17 14:00 01/05/17 17:14 Sodium Chloride Tab PO 1 gm TID MARIBETH Administration Tramadol HCl 25 mg 01/02/17 09:31 01/04/17 23:48 Ultram PO 25 mg Q6H PRN Administration Pain, severe (8-10) Trimethoprim/Sulfamethoxazole 1 tab 01/04/17 10:00 01/05/17 09:46 Bactrim Ss Tab PO 1 tab DAILY MARIBETH Administration - Patient Studies Lab Studies: Lab Studies 01/05/17 01/05/17 01/05/17 Range/Units 16:49 14:46 13:15 WBC (4.8-10.8) K/uL RBC (3.80-5.20) Mil/uL Hgb (11.0-16.0) g/dL Hct (34.0-47.0) % MCV (81.0-99.0) fL MCH (27.0-31.0) pg MCHC (33.0-37.0) g/dL RDW (11.5-14.5) % Plt Count (130-400) K/uL MPV (7.2-11.7) fL Neut % (Auto) (50.0-75.0) % Lymph % (Auto) (20.0-40.0) % Sullivan % (Auto) (0.0-10.0) % Eos % (Auto) (0.0-4.0) % Baso % (Auto) (0.0-2.0) % Neut # (1.8-7.0) K/uL Lymph # (1.0-4.3) K/uL Sullivan # (0.0-0.8) K/uL Eos # (0.0-0.7) K/uL Baso # (0.0-0.2) K/uL Neutrophils % (Manual) (50-75) % Band Neutrophils % (0-2) % Lymphocytes % (Manual) (20-40) % Monocytes % (Manual) (0-10) % Platelet Estimate (NORMAL) Large Platelets Hypochromasia (manual) Poikilocytosis (manual Anisocytosis (manual) Target Cells Sodium (132-148) mmol/L Potassium (3.6-5.2) mmol/L Chloride (98-107) mmol/L Carbon Dioxide (22-30) mmol/L Anion Gap (10-20) BUN (7-17) mg/dL Creatinine (0.7-1.2) MG/DL Est GFR ( Amer) Est GFR (Non-Af Amer) POC Glucose (mg/dL) 375 H 430 H* 490 H* (65-110) mg/dL Random Glucose (65-105) mg/dL Calcium (8.6-10.4) mg/dl Phosphorus (2.5-4.5) mg/dL Magnesium (1.6-2.3) mg/dL Total Bilirubin (0.2-1.3) mg/dL AST (14-36) U/L ALT (9-52) U/L Alkaline Phosphatase (38-126) U/L Total Protein (6.3-8.3) g/dL Albumin (3.5-5.0) g/dL Globulin (2.2-3.9) gm/dL Albumin/Globulin Ratio (1.0-2.1) 01/05/17 01/05/17 01/05/17 Range/Units 11:57 07:28 06:26 WBC 25.2 H (4.8-10.8) K/uL RBC 3.29 L (3.80-5.20) Mil/uL Hgb 10.0 L (11.0-16.0) g/dL Hct 30.4 L (34.0-47.0) % MCV 92.5 (81.0-99.0) fL MCH 30.6 (27.0-31.0) pg MCHC 33.0 (33.0-37.0) g/dL RDW 16.9 H (11.5-14.5) % Plt Count 147 (130-400) K/uL MPV 9.6 (7.2-11.7) fL Neut % (Auto) 96.7 H (50.0-75.0) % Lymph % (Auto) 1.5 L (20.0-40.0) % Sullivan % (Auto) 1.7 (0.0-10.0) % Eos % (Auto) 0.0 (0.0-4.0) % Baso % (Auto) 0.1 (0.0-2.0) % Neut # 24.3 H (1.8-7.0) K/uL Lymph # 0.4 L (1.0-4.3) K/uL Sullivan # 0.4 (0.0-0.8) K/uL Eos # 0.0 (0.0-0.7) K/uL Baso # 0.0 (0.0-0.2) K/uL Neutrophils % (Manual) 95 H (50-75) % Band Neutrophils % 3 H (0-2) % Lymphocytes % (Manual) 1 L (20-40) % Monocytes % (Manual) 1 (0-10) % Platelet Estimate Normal (NORMAL) Large Platelets Present Hypochromasia (manual) Slight Poikilocytosis (manual Slight Anisocytosis (manual) Slight Target Cells Slight Sodium (132-148) mmol/L Potassium (3.6-5.2) mmol/L Chloride (98-107) mmol/L Carbon Dioxide (22-30) mmol/L Anion Gap (10-20) BUN (7-17) mg/dL Creatinine (0.7-1.2) MG/DL Est GFR ( Amer) Est GFR (Non-Af Amer) POC Glucose (mg/dL) 434 H* 396 H (65-110) mg/dL Random Glucose (65-105) mg/dL Calcium (8.6-10.4) mg/dl Phosphorus (2.5-4.5) mg/dL Magnesium (1.6-2.3) mg/dL Total Bilirubin (0.2-1.3) mg/dL AST (14-36) U/L ALT (9-52) U/L Alkaline Phosphatase (38-126) U/L Total Protein (6.3-8.3) g/dL Albumin (3.5-5.0) g/dL Globulin (2.2-3.9) gm/dL Albumin/Globulin Ratio (1.0-2.1) 01/05/17 01/05/17 01/04/17 Range/Units 06:24 02:30 21:22 WBC (4.8-10.8) K/uL RBC (3.80-5.20) Mil/uL Hgb (11.0-16.0) g/dL Hct (34.0-47.0) % MCV (81.0-99.0) fL MCH (27.0-31.0) pg MCHC (33.0-37.0) g/dL RDW (11.5-14.5) % Plt Count (130-400) K/uL MPV (7.2-11.7) fL Neut % (Auto) (50.0-75.0) % Lymph % (Auto) (20.0-40.0) % Sullivan % (Auto) (0.0-10.0) % Eos % (Auto) (0.0-4.0) % Baso % (Auto) (0.0-2.0) % Neut # (1.8-7.0) K/uL Lymph # (1.0-4.3) K/uL Sullivan # (0.0-0.8) K/uL Eos # (0.0-0.7) K/uL Baso # (0.0-0.2) K/uL Neutrophils % (Manual) (50-75) % Band Neutrophils % (0-2) % Lymphocytes % (Manual) (20-40) % Monocytes % (Manual) (0-10) % Platelet Estimate (NORMAL) Large Platelets Hypochromasia (manual) Poikilocytosis (manual Anisocytosis (manual) Target Cells Sodium 129 L (132-148) mmol/L Potassium 4.4 (3.6-5.2) mmol/L Chloride 90 L (98-107) mmol/L Carbon Dioxide 22 (22-30) mmol/L Anion Gap 21 H (10-20) BUN 51 H (7-17) mg/dL Creatinine 3.4 H (0.7-1.2) MG/DL Est GFR ( Amer) 16 Est GFR (Non-Af Amer) 13 POC Glucose (mg/dL) 258 H 351 H (65-110) mg/dL Random Glucose 332 H (65-105) mg/dL Calcium 6.7 L (8.6-10.4) mg/dl Phosphorus 5.5 H (2.5-4.5) mg/dL Magnesium 1.8 (1.6-2.3) mg/dL Total Bilirubin 0.6 (0.2-1.3) mg/dL AST 12 L (14-36) U/L ALT 31 (9-52) U/L Alkaline Phosphatase 51 (38-126) U/L Total Protein 5.3 L (6.3-8.3) g/dL Albumin 3.1 L (3.5-5.0) g/dL Globulin 2.2 (2.2-3.9) gm/dL Albumin/Globulin Ratio 1.4 (1.0-2.1) Laboratory Results - last 24 hr 01/04/17 01/05/17 01/05/17 21:22 02:30 06:24 WBC RBC Hgb Hct MCV MCH MCHC RDW Plt Count MPV Neut % (Auto) Lymph % (Auto) Sullivan % (Auto) Eos % (Auto) Baso % (Auto) Neut # Lymph # Sullivan # Eos # Baso # Neutrophils % (Manual) Band Neutrophils % Lymphocytes % (Manual) Monocytes % (Manual) Platelet Estimate Large Platelets Hypochromasia (manual) Poikilocytosis (manual Anisocytosis (manual) Target Cells Sodium 129 L Potassium 4.4 Chloride 90 L Carbon Dioxide 22 Anion Gap 21 H BUN 51 H Creatinine 3.4 H Est GFR ( Amer) 16 Est GFR (Non-Af Amer) 13 POC Glucose (mg/dL) 351 H 258 H Random Glucose 332 H Calcium 6.7 L Phosphorus 5.5 H Magnesium 1.8 Total Bilirubin 0.6 AST 12 L ALT 31 Alkaline Phosphatase 51 Total Protein 5.3 L Albumin 3.1 L Globulin 2.2 Albumin/Globulin Ratio 1.4 01/05/17 01/05/17 01/05/17 06:26 07:28 11:57 WBC 25.2 H RBC 3.29 L Hgb 10.0 L Hct 30.4 L MCV 92.5 MCH 30.6 MCHC 33.0 RDW 16.9 H Plt Count 147 MPV 9.6 Neut % (Auto) 96.7 H Lymph % (Auto) 1.5 L Sullivan % (Auto) 1.7 Eos % (Auto) 0.0 Baso % (Auto) 0.1 Neut # 24.3 H Lymph # 0.4 L Sullivan # 0.4 Eos # 0.0 Baso # 0.0 Neutrophils % (Manual) 95 H Band Neutrophils % 3 H Lymphocytes % (Manual) 1 L Monocytes % (Manual) 1 Platelet Estimate Normal Large Platelets Present Hypochromasia (manual) Slight Poikilocytosis (manual Slight Anisocytosis (manual) Slight Target Cells Slight Sodium Potassium Chloride Carbon Dioxide Anion Gap BUN Creatinine Est GFR ( Amer) Est GFR (Non-Af Amer) POC Glucose (mg/dL) 396 H 434 H* Random Glucose Calcium Phosphorus Magnesium Total Bilirubin AST ALT Alkaline Phosphatase Total Protein Albumin Globulin Albumin/Globulin Ratio 01/05/17 01/05/17 01/05/17 13:15 14:46 16:49 WBC RBC Hgb Hct MCV MCH MCHC RDW Plt Count MPV Neut % (Auto) Lymph % (Auto) Sullivan % (Auto) Eos % (Auto) Baso % (Auto) Neut # Lymph # Sullivan # Eos # Baso # Neutrophils % (Manual) Band Neutrophils % Lymphocytes % (Manual) Monocytes % (Manual) Platelet Estimate Large Platelets Hypochromasia (manual) Poikilocytosis (manual Anisocytosis (manual) Target Cells Sodium Potassium Chloride Carbon Dioxide Anion Gap BUN Creatinine Est GFR ( Amer) Est GFR (Non-Af Amer) POC Glucose (mg/dL) 490 H* 430 H* 375 H Random Glucose Calcium Phosphorus Magnesium Total Bilirubin AST ALT Alkaline Phosphatase Total Protein Albumin Globulin Albumin/Globulin Ratio Critical Care Progress Note - Nutrition Nutrition: Nutrition Category Date Time Status Renal Diet [DIET] Diets 01/03/17 Lunch Active Assessment/Plan (1) Acute respiratory failure Current Visit: Yes Status: Acute Attending/Attestation - Attestation I have personally seen and examined this patient.: Yes I have fully participated in the care of the patient.: Yes I have reviewed all pertinent clinical information: Yes Notes (Text): 01/05/17 18:51 I have seen and examined the patient. Medical records, lab studies, and imaging were reviewed by me and a management plan was formulated on multidisciplinary rounds with resident Dr. Bishop. I agree with their above documented assessment and plan. Patient started chemotherapy, tolerating well, still titrating down on high flow oxygen. She appears to be improving clinically. Critical Care Time 35 minutes. Multi-disciplinary rounds were performed with house staff, nursing, speech therapy, respiratory therapy, pharmacy and nutrition with integrated input from the primary team/attending and other consulting services. The documented time is cumulative and includes review of patient data/exams/labs/chart review and examination of the patient on rounds and throughout the day; time is exclusive of any procedures or teaching time. <Sunny Bishop R - Last Filed: 01/05/17 19:02> CCU Subjective - Physician Review Subjective (Free Text): Patient seen and examined at bedside. Patient alert, AAOx3, able to follow commands. Patient is s/p portacath and received her first cycle of chemotherapy yesterday. Yesterday, immediately after dialysis the patient went into A-fib and is s/p cardioversion She reports mild pain in the area where she received cardioversion. Patient continues to have labored breathing on nasal cannula, she refuses to use BiPAP. Denies chest pain, abdominal pain, fever, palpitations, nausea, vomiting. Per nursing staff, no acute events overnight. 01/05/17 14:15 CCU Objective - Vital Signs / Intake & Output Vital Signs (Last 4 hours): Vital Signs Temp Pulse Resp BP Pulse Ox 01/05/17 13:30 13 01/05/17 13:00 75 21 98 01/05/17 12:43 73 19 122/52 L 97 01/05/17 12:00 98.8 F 73 17 97 01/05/17 11:43 72 18 110/52 L 97 01/05/17 11:27 13 01/05/17 11:00 72 14 98 01/05/17 10:44 81 14 113/47 L 95 Intake and Output (Last 8hrs): Intake & Output 01/04/17 01/05/17 01/05/17 22:59 06:59 14:59 Intake Total 750 787.2 Output Total 0 Balance 750 787.2 Weight 166 lb 8 oz Intake: Intake, IV Amount 750 467.2 Right Wrist 750 100 right arm 367.2 Oral 320 Output: Urine 0 Urine, Voided 0 - Physical Exam Head: Positive for: Atraumatic, Normocephalic Pupils: Positive for: PERRL Extroacular Muscles: Positive for: EOMI Mouth: Positive for: Moist Mucous Membranes Respiratory/Chest: Positive for: Rhonchi Cardiovascular: Positive for: Regular Rate and Rhythm, Normal S1, S2 Abdomen: Positive for: Normal Bowel Sounds. Negative for: Tenderness, Distention Upper Extremity: Negative for: Edema Lower Extremity: Negative for: Edema Neurological: Positive for: CN II-XII Intact, Speech Normal Psychiatric: Positive for: Alert, Oriented x 3, Normal Insight - Medications Active Medications: Active Medications Generic Name Dose Route Start Last Admin Trade Name Freq PRN Reason Stop Dose Admin Acyclovir 400 mg 01/03/17 10:00 01/05/17 09:46 Zovirax PO 400 mg DAILY MARIBETH Administration Albuterol/Ipratropium 3 ml 01/02/17 14:00 01/05/17 13:30 Duoneb 3 Mg/0.5 Mg (3 Ml) Ud INH 3 ml RQ6 MARIBETH Administration Famotidine 20 mg 12/27/16 10:00 01/05/17 09:45 Pepcid PO 20 mg DAILY MARIBETH Administration Ferrous Sulfate 325 mg 12/26/16 10:00 01/05/17 09:45 Feosol PO 325 mg DAILY MARIBETH Administration Glipizide 10 mg 01/05/17 11:48 Glucotrol PO DAILY [facility] Heparin Sodium (Porcine) 5,000 units 12/30/16 10:00 12/31/16 21:01 Heparin SC 5,000 units Q12 MARIBETH Administration Piperacillin Sod/Tazobactam Sod 2.25 gm in 50 mls @ 100 mls/hr 12/25/16 23:00 01/05/17 06:20 Zosyn 2.25 Gm Iv Premix IVPB 100 mls/hr Q8H MARIBETH Administration Amiodarone HCl 900 mg/ 500 mls @ 16.66 mls/hr 01/05/17 00:40 01/05/17 00:40 Dextrose IV 01/06/17 00:39 Not Given .Q24H ONE Protocol 0.5 MG/MIN Insulin Human Regular 0 unit 12/31/16 10:15 01/05/17 12:33 Novolin R SC 12 unit ACHS MARIBETH Administration Protocol Levothyroxine Sodium 75 mcg 12/26/16 06:30 01/05/17 06:20 Synthroid PO 75 mcg DAILY@0630 MARIBETH Administration Lidocaine 1 ea 12/30/16 21:00 01/05/17 10:47 Lidoderm TD 1 ea DAILY MARIBETH Administration Rosuvastatin Calcium 5 mg 12/30/16 22:00 01/04/17 21:23 Crestor PO 5 mg HS MARIBETH Administration Sevelamer Carbonate 1,600 mg 12/30/16 08:00 01/05/17 12:36 Renvela PO 1,600 mg TIDCC MARIBETH Administration Sodium Chloride 1 gm 01/05/17 14:00 Sodium Chloride Tab PO TID MARIBETH Tramadol HCl 25 mg 01/02/17 09:31 01/04/17 23:48 Ultram PO 25 mg Q6H PRN Administration Pain, severe (8-10) Trimethoprim/Sulfamethoxazole 1 tab 01/04/17 10:00 01/05/17 09:46 Bactrim Ss Tab PO 1 tab DAILY MARIBETH Administration - Patient Studies Lab Studies: Lab Studies 01/05/17 01/05/17 01/05/17 Range/Units 13:15 11:57 07:28 WBC (4.8-10.8) K/uL RBC (3.80-5.20) Mil/uL Hgb (11.0-16.0) g/dL Hct (34.0-47.0) % MCV (81.0-99.0) fL MCH (27.0-31.0) pg MCHC (33.0-37.0) g/dL RDW (11.5-14.5) % Plt Count (130-400) K/uL MPV (7.2-11.7) fL Neut % (Auto) (50.0-75.0) % Lymph % (Auto) (20.0-40.0) % Sullivan % (Auto) (0.0-10.0) % Eos % (Auto) (0.0-4.0) % Baso % (Auto) (0.0-2.0) % Neut # (1.8-7.0) K/uL Lymph # (1.0-4.3) K/uL Sullivan # (0.0-0.8) K/uL Eos # (0.0-0.7) K/uL Baso # (0.0-0.2) K/uL Neutrophils % (Manual) (50-75) % Band Neutrophils % (0-2) % Lymphocytes % (Manual) (20-40) % Monocytes % (Manual) (0-10) % Platelet Estimate (NORMAL) Large Platelets Hypochromasia (manual) Poikilocytosis (manual Anisocytosis (manual) Target Cells Puncture Site pCO2 (35-45) mm/Hg pO2 (80-100) mm/Hg HCO3 (21-28) mmol/L ABG pH (7.35-7.45) ABG Total CO2 (22-28) mmol/L ABG O2 Saturation (95-98) % ABG Base Excess (-2.0-3.0) mmol/L ABG Hemoglobin (11.7-17.4) g/dL ABG Carboxyhemoglobin (0.5-1.5) % POC ABG HHb (Measured) (0.0-5.0) % ABG Methemoglobin (0.0-3.0) % Walt Test A-a O2 Difference mm/Hg Respiratory Index Hgb O2 Saturation (95.0-98.0) % FiO2 % Sodium (132-148) mmol/L Potassium (3.6-5.2) mmol/L Chloride (98-107) mmol/L Carbon Dioxide (22-30) mmol/L Anion Gap (10-20) BUN (7-17) mg/dL Creatinine (0.7-1.2) MG/DL Est GFR ( Amer) Est GFR (Non-Af Amer) POC Glucose (mg/dL) 490 H* 434 H* 396 H (65-110) mg/dL Random Glucose (65-105) mg/dL Calcium (8.6-10.4) mg/dl Phosphorus (2.5-4.5) mg/dL Magnesium (1.6-2.3) mg/dL Total Bilirubin (0.2-1.3) mg/dL AST (14-36) U/L ALT (9-52) U/L Alkaline Phosphatase (38-126) U/L Total Protein (6.3-8.3) g/dL Albumin (3.5-5.0) g/dL Globulin (2.2-3.9) gm/dL Albumin/Globulin Ratio (1.0-2.1) 01/05/17 01/05/17 01/05/17 Range/Units 06:26 06:24 02:30 WBC 25.2 H (4.8-10.8) K/uL RBC 3.29 L (3.80-5.20) Mil/uL Hgb 10.0 L (11.0-16.0) g/dL Hct 30.4 L (34.0-47.0) % MCV 92.5 (81.0-99.0) fL MCH 30.6 (27.0-31.0) pg MCHC 33.0 (33.0-37.0) g/dL RDW 16.9 H (11.5-14.5) % Plt Count 147 (130-400) K/uL MPV 9.6 (7.2-11.7) fL Neut % (Auto) 96.7 H (50.0-75.0) % Lymph % (Auto) 1.5 L (20.0-40.0) % Sullivan % (Auto) 1.7 (0.0-10.0) % Eos % (Auto) 0.0 (0.0-4.0) % Baso % (Auto) 0.1 (0.0-2.0) % Neut # 24.3 H (1.8-7.0) K/uL Lymph # 0.4 L (1.0-4.3) K/uL Sullivan # 0.4 (0.0-0.8) K/uL Eos # 0.0 (0.0-0.7) K/uL Baso # 0.0 (0.0-0.2) K/uL Neutrophils % (Manual) 95 H (50-75) % Band Neutrophils % 3 H (0-2) % Lymphocytes % (Manual) 1 L (20-40) % Monocytes % (Manual) 1 (0-10) % Platelet Estimate Normal (NORMAL) Large Platelets Present Hypochromasia (manual) Slight Poikilocytosis (manual Slight Anisocytosis (manual) Slight Target Cells Slight Puncture Site pCO2 (35-45) mm/Hg pO2 (80-100) mm/Hg HCO3 (21-28) mmol/L ABG pH (7.35-7.45) ABG Total CO2 (22-28) mmol/L ABG O2 Saturation (95-98) % ABG Base Excess (-2.0-3.0) mmol/L ABG Hemoglobin (11.7-17.4) g/dL ABG Carboxyhemoglobin (0.5-1.5) % POC ABG HHb (Measured) (0.0-5.0) % ABG Methemoglobin (0.0-3.0) % Walt Test A-a O2 Difference mm/Hg Respiratory Index Hgb O2 Saturation (95.0-98.0) % FiO2 % Sodium 129 L (132-148) mmol/L Potassium 4.4 (3.6-5.2) mmol/L Chloride 90 L (98-107) mmol/L Carbon Dioxide 22 (22-30) mmol/L Anion Gap 21 H (10-20) BUN 51 H (7-17) mg/dL Creatinine 3.4 H (0.7-1.2) MG/DL Est GFR ( Amer) 16 Est GFR (Non-Af Amer) 13 POC Glucose (mg/dL) 258 H (65-110) mg/dL Random Glucose 332 H (65-105) mg/dL Calcium 6.7 L (8.6-10.4) mg/dl Phosphorus 5.5 H (2.5-4.5) mg/dL Magnesium 1.8 (1.6-2.3) mg/dL Total Bilirubin 0.6 (0.2-1.3) mg/dL AST 12 L (14-36) U/L ALT 31 (9-52) U/L Alkaline Phosphatase 51 (38-126) U/L Total Protein 5.3 L (6.3-8.3) g/dL Albumin 3.1 L (3.5-5.0) g/dL Globulin 2.2 (2.2-3.9) gm/dL Albumin/Globulin Ratio 1.4 (1.0-2.1) 01/04/17 01/04/17 01/04/17 Range/Units 21:22 16:50 16:33 WBC (4.8-10.8) K/uL RBC (3.80-5.20) Mil/uL Hgb (11.0-16.0) g/dL Hct (34.0-47.0) % MCV (81.0-99.0) fL MCH (27.0-31.0) pg MCHC (33.0-37.0) g/dL RDW (11.5-14.5) % Plt Count (130-400) K/uL MPV (7.2-11.7) fL Neut % (Auto) (50.0-75.0) % Lymph % (Auto) (20.0-40.0) % Sullivan % (Auto) (0.0-10.0) % Eos % (Auto) (0.0-4.0) % Baso % (Auto) (0.0-2.0) % Neut # (1.8-7.0) K/uL Lymph # (1.0-4.3) K/uL Sullivan # (0.0-0.8) K/uL Eos # (0.0-0.7) K/uL Baso # (0.0-0.2) K/uL Neutrophils % (Manual) (50-75) % Band Neutrophils % (0-2) % Lymphocytes % (Manual) (20-40) % Monocytes % (Manual) (0-10) % Platelet Estimate (NORMAL) Large Platelets Hypochromasia (manual) Poikilocytosis (manual Anisocytosis (manual) Target Cells Puncture Site Rra pCO2 37 (35-45) mm/Hg pO2 122 H (80-100) mm/Hg HCO3 25.2 (21-28) mmol/L ABG pH 7.43 (7.35-7.45) ABG Total CO2 25.7 (22-28) mmol/L ABG O2 Saturation 98.9 H (95-98) % ABG Base Excess 0.4 (-2.0-3.0) mmol/L ABG Hemoglobin 11.1 L (11.7-17.4) g/dL ABG Carboxyhemoglobin 1.3 (0.5-1.5) % POC ABG HHb (Measured) 1.1 (0.0-5.0) % ABG Methemoglobin 1.4 (0.0-3.0) % Walt Test Pos A-a O2 Difference 545.0 mm/Hg Respiratory Index 4.5 Hgb O2 Saturation 96.1 (95.0-98.0) % FiO2 100.0 % Sodium (132-148) mmol/L Potassium (3.6-5.2) mmol/L Chloride (98-107) mmol/L Carbon Dioxide (22-30) mmol/L Anion Gap (10-20) BUN (7-17) mg/dL Creatinine (0.7-1.2) MG/DL Est GFR ( Amer) Est GFR (Non-Af Amer) POC Glucose (mg/dL) 351 H 277 H (65-110) mg/dL Random Glucose (65-105) mg/dL Calcium (8.6-10.4) mg/dl Phosphorus (2.5-4.5) mg/dL Magnesium (1.6-2.3) mg/dL Total Bilirubin (0.2-1.3) mg/dL AST (14-36) U/L ALT (9-52) U/L Alkaline Phosphatase (38-126) U/L Total Protein (6.3-8.3) g/dL Albumin (3.5-5.0) g/dL Globulin (2.2-3.9) gm/dL Albumin/Globulin Ratio (1.0-2.1) Laboratory Results - last 24 hr 01/04/17 01/04/17 01/04/17 16:33 16:50 21:22 WBC RBC Hgb Hct MCV MCH MCHC RDW Plt Count MPV Neut % (Auto) Lymph % (Auto) Sullivan % (Auto) Eos % (Auto) Baso % (Auto) Neut # Lymph # Sullivan # Eos # Baso # Neutrophils % (Manual) Band Neutrophils % Lymphocytes % (Manual) Monocytes % (Manual) Platelet Estimate Large Platelets Hypochromasia (manual) Poikilocytosis (manual Anisocytosis (manual) Target Cells Puncture Site Rra pCO2 37 pO2 122 H HCO3 25.2 ABG pH 7.43 ABG Total CO2 25.7 ABG O2 Saturation 98.9 H ABG Base Excess 0.4 ABG Hemoglobin 11.1 L ABG Carboxyhemoglobin 1.3 POC ABG HHb (Measured) 1.1 ABG Methemoglobin 1.4 Walt Test Pos A-a O2 Difference 545.0 Respiratory Index 4.5 Hgb O2 Saturation 96.1 FiO2 100.0 Sodium Potassium Chloride Carbon Dioxide Anion Gap BUN Creatinine Est GFR ( Amer) Est GFR (Non-Af Amer) POC Glucose (mg/dL) 277 H 351 H Random Glucose Calcium Phosphorus Magnesium Total Bilirubin AST ALT Alkaline Phosphatase Total Protein Albumin Globulin Albumin/Globulin Ratio 01/05/17 01/05/17 01/05/17 02:30 06:24 06:26 WBC 25.2 H RBC 3.29 L Hgb 10.0 L Hct 30.4 L MCV 92.5 MCH 30.6 MCHC 33.0 RDW 16.9 H Plt Count 147 MPV 9.6 Neut % (Auto) 96.7 H Lymph % (Auto) 1.5 L Sullivan % (Auto) 1.7 Eos % (Auto) 0.0 Baso % (Auto) 0.1 Neut # 24.3 H Lymph # 0.4 L Sullivan # 0.4 Eos # 0.0 Baso # 0.0 Neutrophils % (Manual) 95 H Band Neutrophils % 3 H Lymphocytes % (Manual) 1 L Monocytes % (Manual) 1 Platelet Estimate Normal Large Platelets Present Hypochromasia (manual) Slight Poikilocytosis (manual Slight Anisocytosis (manual) Slight Target Cells Slight Puncture Site pCO2 pO2 HCO3 ABG pH ABG Total CO2 ABG O2 Saturation ABG Base Excess ABG Hemoglobin ABG Carboxyhemoglobin POC ABG HHb (Measured) ABG Methemoglobin Walt Test A-a O2 Difference Respiratory Index Hgb O2 Saturation FiO2 Sodium 129 L Potassium 4.4 Chloride 90 L Carbon Dioxide 22 Anion Gap 21 H BUN 51 H Creatinine 3.4 H Est GFR ( Amer) 16 Est GFR (Non-Af Amer) 13 POC Glucose (mg/dL) 258 H Random Glucose 332 H Calcium 6.7 L Phosphorus 5.5 H Magnesium 1.8 Total Bilirubin 0.6 AST 12 L ALT 31 Alkaline Phosphatase 51 Total Protein 5.3 L Albumin 3.1 L Globulin 2.2 Albumin/Globulin Ratio 1.4 01/05/17 01/05/17 01/05/17 07:28 11:57 13:15 WBC RBC Hgb Hct MCV MCH MCHC RDW Plt Count MPV Neut % (Auto) Lymph % (Auto) Sullivan % (Auto) Eos % (Auto) Baso % (Auto) Neut # Lymph # Sullivan # Eos # Baso # Neutrophils % (Manual) Band Neutrophils % Lymphocytes % (Manual) Monocytes % (Manual) Platelet Estimate Large Platelets Hypochromasia (manual) Poikilocytosis (manual Anisocytosis (manual) Target Cells Puncture Site pCO2 pO2 HCO3 ABG pH ABG Total CO2 ABG O2 Saturation ABG Base Excess ABG Hemoglobin ABG Carboxyhemoglobin POC ABG HHb (Measured) ABG Methemoglobin Walt Test A-a O2 Difference Respiratory Index Hgb O2 Saturation FiO2 Sodium Potassium Chloride Carbon Dioxide Anion Gap BUN Creatinine Est GFR ( Amer) Est GFR (Non-Af Amer) POC Glucose (mg/dL) 396 H 434 H* 490 H* Random Glucose Calcium Phosphorus Magnesium Total Bilirubin AST ALT Alkaline Phosphatase Total Protein Albumin Globulin Albumin/Globulin Ratio Fingerstick Blood Sugar Results: 434 Review of Systems - EENT Eyes: UNREMARKABLE Ears: UNREMARKABLE Nose/Mouth/Throat: UNREMARKABLE - Cardiovascular Cardiovascular: UNREMARKABLE - Respiratory Respiratory: Cough. absent: Hemoptysis, Wheezing - Gastrointestinal Gastrointestinal: UNREMARKABLE. absent: Abdominal Pain, Constipation, Diarrhea , Nausea, Vomiting - Musculoskeletal Musculoskeletal: UNREMARKABLE - Integumentary Integumentary: UNREMARKABLE Critical Care Progress Note - Ventilator Checklist Head of Bed 30 Degrees: Yes DVT Prophylaxis: Yes - Prophylaxis GI Prophylaxis GI: Pepsid - Prophylaxis DVT Prophylaxis DVT: Heparin SQ - Nutrition Nutrition: Nutrition Category Date Time Status Renal Diet [DIET] Diets 01/03/17 Lunch Active Assessment/Plan (1) CHF exacerbation Current Visit: No Status: Acute (2) Acute kidney injury superimposed on chronic kidney disease Current Visit: No Status: Acute (3) Anemia Current Visit: No Status: Chronic (4) Atrial fibrillation with controlled ventricular response Current Visit: No Status: Acute (5) HTN (hypertension) Current Visit: No Status: Chronic (6) Leucocytosis Current Visit: No Status: Acute (7) History of asthma Current Visit: Yes Status: Acute (8) Gastritis Current Visit: No Status: Acute (9) Diabetes 1.5, 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 S/p portacath 01/04. Episode of A-fib on successful return to NSR after 150J. Today 01/05/17: Patient is s/p portacath and started chemotherapy. Amio drip finished today, started metoprolol 25 mg po bid per Dr Little recommendation. Neuro: Alert and oriented 3 Pulm: Acute hypoxic respiratory failure secondary to interstitial pneumonitis, seen on CT chest. Methylprednisolone discontinued due to elevated blood sugars. Patient may need bronch with BAL/biopsy, consulted Dr. Kessler. Patient may have pulmonary invasive Myeloma (rare, chemotx will help), vs infectious etiology. - elevated LDH; Bactrim 2 tab PO daily CV: Acute on chronic decompensated diastolic heart failure, fluid removal via dialysis, NOT IMPROVING PULMONARY function/radiographic appearance. A-fib yesterday, NSR s/p cardiovert 150J. - metoprolol 25mg po bid - Amiodarone drip completed Heme: Transfused with 2 units pRBCs 01/01, multifactorial with critical illness, multiple myeloma. Multiple myeloma, intended treatment with Velcade and Cytoxan and Decadron. Bone marrow biopsy done 01/03. Hem/Onc, Dr. Martinez, following plan to start chemotherapy today after Portacath placement. Renal: acute renal failure; TThS scedule dialysis for fluid removal. - Sodium decreased, supplemented 1 gra PO TID - continue to monitor BMP Endo: DM type II, increased insulin sliding scale for coverage, Glucotrol. Accuchecks Q6 hrs. Hypothyroidism, continue levothyroxine. GI: Diabetic diet, Glipizide 10 mg PO daily, Insulin ID: Possible pneumonia, continue antibiotics (active since 12/25): doxycycline and Zosyn. Msk: back pain, chronic - Tramadol 25 mg PO Q6 prn - Lidoderm patch daily DVT proph - heparin subcutaneous GI proph - Pepcid valencia for strict I/O's during acute illness Code status - full code
--- NOTE | 2017-01-05 14:19 | CP.PCM.PN ---
<Melina Livingston - Last Filed: 01/05/17 13:56> Subjective - Date & Time of Evaluation Date of Evaluation: 01/05/17 Time of Evaluation: 10:30 - Subjective Subjective: Resident Progress Note for Dr. Little Patient seen and examined at bedside with family members present. Patient was found to have rapid atrial fib yesterday afternoon. Patient was subsequently cardioverted and returned to sinus rhythm. Patient is currently resting in bed comfortably. Denies headache, dizziness, fever, chills, shortness of breath, or chest pain. Objective - Vital Signs/Intake and Output Vital Signs (last 24 hours): Temp Pulse Resp BP Pulse Ox 98.8 F 75 13 122/52 L 98 01/05/17 12:00 01/05/17 13:00 01/05/17 13:30 01/05/17 12:43 01/05/17 13:00 Intake and Output: 01/05/17 01/05/17 06:59 18:59 Intake Total 650 787.2 Output Total 0 Balance 650 787.2 - Medications Medications: Current Medications Acyclovir (Zovirax) 400 mg PO DAILY [facility] Last Admin: 01/05/17 09:46 Dose: 400 mg Albuterol/Ipratropium (Duoneb 3 Mg/0.5 Mg (3 Ml) Ud) 3 ml INH RQ6 [facility] Last Admin: 01/05/17 13:30 Dose: 3 ml Famotidine (Pepcid) 20 mg PO DAILY [facility] Last Admin: 01/05/17 09:45 Dose: 20 mg Ferrous Sulfate (Feosol) 325 mg PO DAILY [facility] Last Admin: 01/05/17 09:45 Dose: 325 mg Glipizide (Glucotrol) 10 mg PO DAILY [facility] Heparin Sodium (Porcine) (Heparin) 5,000 units SC Q12 [facility] Last Admin: 12/31/16 21:01 Dose: 5,000 units Piperacillin Sod/Tazobactam Sod (Zosyn 2.25 Gm Iv Premix) 2.25 gm in 50 mls @ 100 mls/hr IVPB Q8H [facility] Last Admin: 01/05/17 06:20 Dose: 100 mls/hr Amiodarone HCl 900 mg/ (Dextrose) 500 mls @ 16.66 mls/hr IV .Q24H ONE; 0.5 MG/ MIN PRN Reason: Protocol Stop: 01/06/17 00:39 Last Admin: 01/05/17 00:40 Dose: Not Given Insulin Human Regular (Novolin R) 0 unit SC ACHS [facility] PRN Reason: Protocol Last Admin: 01/05/17 12:33 Dose: 12 unit Levothyroxine Sodium (Synthroid) 75 mcg PO DAILY@0630 [facility] Last Admin: 01/05/17 06:20 Dose: 75 mcg Lidocaine (Lidoderm) 1 ea TD DAILY [facility] Last Admin: 01/05/17 10:47 Dose: 1 ea Rosuvastatin Calcium (Crestor) 5 mg PO HS [facility] Last Admin: 01/04/17 21:23 Dose: 5 mg Sevelamer Carbonate (Renvela) 1,600 mg PO TIDCC [facility] Last Admin: 01/05/17 12:36 Dose: 1,600 mg Sodium Chloride (Sodium Chloride Tab) 1 gm PO TID [facility] Tramadol HCl (Ultram) 25 mg PO Q6H PRN PRN Reason: Pain, severe (8-10) Last Admin: 01/04/17 23:48 Dose: 25 mg Trimethoprim/Sulfamethoxazole (Bactrim Ss Tab) 1 tab PO DAILY [facility] Last Admin: 01/05/17 09:46 Dose: 1 tab - Labs Labs: 01/05/17 06:26 01/05/17 06:24 PT 13.1 SECONDS (9.7-12.2) H 12/26/16 08:05 INR 1.2 12/26/16 08:05 APTT 27 SECONDS (21-34) 01/01/17 06:00 - Eye Exam Eye Exam: EOMI, Normal appearance - ENT Exam ENT Exam: Mucous Membranes Moist - Respiratory Exam Respiratory Exam: Decreased Breath Sounds, NORMAL BREATHING PATTERN - Cardiovascular Exam Cardiovascular Exam: RRR, +S1, +S2 - GI/Abdominal Exam GI & Abdominal Exam: Soft, Normal Bowel Sounds - Extremities Exam Extremities Exam: Normal Capillary Refill - Neurological Exam Neurological Exam: Alert, Awake, Oriented x3 - Psychiatric Exam Psychiatric exam: Normal Affect, Normal Mood - Skin Skin Exam: Normal Color, Warm Assessment and Plan - Assessment and Plan (Free Text) Assessment: CHF -Diastolic congestive heart failure -BNP 10413 -Echo from 12/27/16 showed EF at 60% moderate LV diastolic dysfunction. LA is moderately dilated. RA is mildly dilated, mitral annular calcification is moderate. MV is calcified and displays decreased opening. Mild MV stenosis. severe pulmonary hypertension -Hold ACEI and ARB due to ARF -Monitor daily weights and I&O Atrial Fibrillation -Rate control with medication -Hold anticoagulation meds due to anemia HTN -BP stable -Continue to monitor Case discussed with attending Dr. Little <Nam Little - Last Filed: 01/06/17 07:26> Objective - Vital Signs/Intake and Output Vital Signs (last 24 hours): Temp Pulse Resp BP Pulse Ox 98.4 F 59 L 17 93/39 L 97 01/06/17 04:00 01/06/17 07:00 01/06/17 07:00 01/06/17 06:43 01/06/17 07:00 Intake and Output: 01/06/17 01/06/17 06:59 18:59 Intake Total 50 Balance 50 - Medications Medications: Current Medications Acyclovir (Zovirax) 400 mg PO DAILY [facility] Last Admin: 01/05/17 09:46 Dose: 400 mg Albuterol/Ipratropium (Duoneb 3 Mg/0.5 Mg (3 Ml) Ud) 3 ml INH RQ6 [facility] Last Admin: 01/06/17 01:51 Dose: 3 ml Famotidine (Pepcid) 20 mg PO DAILY [facility] Last Admin: 01/05/17 09:45 Dose: 20 mg Ferrous Sulfate (Feosol) 325 mg PO DAILY [facility] Last Admin: 01/05/17 09:45 Dose: 325 mg Glipizide (Glucotrol) 10 mg PO DAILY [facility] Heparin Sodium (Porcine) (Heparin) 5,000 units SC Q12 [facility] Last Admin: 01/05/17 21:14 Dose: 5,000 units Piperacillin Sod/Tazobactam Sod (Zosyn 2.25 Gm Iv Premix) 2.25 gm in 50 mls @ 100 mls/hr IVPB Q8H [facility] Last Admin: 01/06/17 06:01 Dose: 100 mls/hr Insulin Glargine (Lantus) 10 unit SC HS [facility] Last Admin: 01/05/17 21:15 Dose: 10 units Insulin Human Regular (Novolin R) 0 unit SC ACHS [facility] PRN Reason: Protocol Last Admin: 01/05/17 21:21 Dose: Not Given Levothyroxine Sodium (Synthroid) 75 mcg PO DAILY@0630 [facility] Last Admin: 01/06/17 05:54 Dose: 75 mcg Lidocaine (Lidoderm) 1 ea TD DAILY [facility] Last Admin: 01/05/17 10:47 Dose: 1 ea Metoprolol Tartrate (Lopressor) 25 mg PO BID [facility] Last Admin: 01/05/17 18:42 Dose: 25 mg Rosuvastatin Calcium (Crestor) 5 mg PO HS [facility] Last Admin: 01/05/17 21:15 Dose: 5 mg Sevelamer Carbonate (Renvela) 1,600 mg PO TIDCC [facility] Last Admin: 01/05/17 17:14 Dose: 1,600 mg Sodium Chloride (Sodium Chloride Tab) 1 gm PO TID [facility] Last Admin: 01/05/17 17:14 Dose: 1 gm Tramadol HCl (Ultram) 25 mg PO Q6H PRN PRN Reason: Pain, severe (8-10) Last Admin: 01/06/17 02:35 Dose: 25 mg Trimethoprim/Sulfamethoxazole (Bactrim Ss Tab) 1 tab PO DAILY [facility] Last Admin: 01/05/17 09:46 Dose: 1 tab - Labs Labs: 01/06/17 06:44 01/06/17 06:44 PT 13.1 SECONDS (9.7-12.2) H 12/26/16 08:05 INR 1.2 12/26/16 08:05 APTT 27 SECONDS (21-34) 01/01/17 06:00 Assessment and Plan - Assessment and Plan (Free Text) Assessment: Patient seen and evaluated with the president and chief commercial officer Plan of care as above
[2017-01-05] MEDS ORDERED: (Novolin R) Insulin Human Regular 100 units/ml vial SC ONE (15:45)
--- NOTE | 2017-01-05 16:59 | CP.PCM.PN ---
Subjective - Date & Time of Evaluation Date of Evaluation: 01/05/17 Time of Evaluation: 04:30 - Subjective Subjective: dictated Objective - Vital Signs/Intake and Output Vital Signs (last 24 hours): Temp Pulse Resp BP Pulse Ox 98.6 F 120 H 12 121/61 96 01/05/17 15:29 01/05/17 15:00 01/05/17 15:56 01/05/17 14:44 01/05/17 15:00 Intake and Output: 01/05/17 01/05/17 06:59 18:59 Intake Total 650 920.6 Output Total 0 Balance 650 920.6 - Medications Medications: Current Medications Acyclovir (Zovirax) 400 mg PO DAILY [facility] Last Admin: 01/05/17 09:46 Dose: 400 mg Albuterol/Ipratropium (Duoneb 3 Mg/0.5 Mg (3 Ml) Ud) 3 ml INH RQ6 [facility] Last Admin: 01/05/17 13:30 Dose: 3 ml Famotidine (Pepcid) 20 mg PO DAILY [facility] Last Admin: 01/05/17 09:45 Dose: 20 mg Ferrous Sulfate (Feosol) 325 mg PO DAILY [facility] Last Admin: 01/05/17 09:45 Dose: 325 mg Glipizide (Glucotrol) 10 mg PO DAILY [facility] Heparin Sodium (Porcine) (Heparin) 5,000 units SC Q12 [facility] Last Admin: 12/31/16 21:01 Dose: 5,000 units Piperacillin Sod/Tazobactam Sod (Zosyn 2.25 Gm Iv Premix) 2.25 gm in 50 mls @ 100 mls/hr IVPB Q8H [facility] Last Admin: 01/05/17 15:55 Dose: 100 mls/hr Amiodarone HCl 900 mg/ (Dextrose) 500 mls @ 16.66 mls/hr IV .Q24H ONE; 0.5 MG/ MIN PRN Reason: Protocol Stop: 01/06/17 00:39 Last Admin: 01/05/17 00:40 Dose: Not Given Insulin Glargine (Lantus) 10 unit SC HS [facility] Insulin Human Regular (Novolin R) 0 unit SC ACHS [facility] PRN Reason: Protocol Last Admin: 01/05/17 12:33 Dose: 12 unit Levothyroxine Sodium (Synthroid) 75 mcg PO DAILY@0630 [facility] Last Admin: 01/05/17 06:20 Dose: 75 mcg Lidocaine (Lidoderm) 1 ea TD DAILY [facility] Last Admin: 01/05/17 10:47 Dose: 1 ea Rosuvastatin Calcium (Crestor) 5 mg PO HS [facility] Last Admin: 01/04/17 21:23 Dose: 5 mg Sevelamer Carbonate (Renvela) 1,600 mg PO TIDCC [facility] Last Admin: 01/05/17 12:36 Dose: 1,600 mg Sodium Chloride (Sodium Chloride Tab) 1 gm PO TID [facility] Last Admin: 01/05/17 15:25 Dose: 1 gm Tramadol HCl (Ultram) 25 mg PO Q6H PRN PRN Reason: Pain, severe (8-10) Last Admin: 01/04/17 23:48 Dose: 25 mg Trimethoprim/Sulfamethoxazole (Bactrim Ss Tab) 1 tab PO DAILY [facility] Last Admin: 01/05/17 09:46 Dose: 1 tab - Labs Labs: 01/05/17 06:26 01/05/17 06:24 PT 13.1 SECONDS (9.7-12.2) H 12/26/16 08:05 INR 1.2 12/26/16 08:05 APTT 27 SECONDS (21-34) 01/01/17 06:00
--- NOTE | 2017-01-05 18:24 | CP.PCM.PN ---
Subjective - Date & Time of Evaluation Date of Evaluation: 01/05/17 Time of Evaluation: 18:15 - Subjective Subjective: Hospitalist Progress Note Patient was seen and examined at 6:15 PM 01/05/17 Please see Assessment and Plans below for details Upon ROS NO chest pain SOB/Breathing is better on the HiFlow Oxygen Eating but not as much as before as she states that she gets nauseous NO burning with urination but states that she is not urinating a lot Feel a bit stronger today NO other complaints - Constitutional Appears: In Acute Distress, Chronically Ill - Head Exam Head Exam: NORMAL INSPECTION - Eye Exam Eye Exam: EOMI, Pupils are round, equal, reactive to light/accomodation - ENT Exam ENT Exam: Mucous Membranes Dry - Respiratory Exam Respiratory Exam: Decreased Breath Sounds, Course breath sounds throughout absent: Rales, Rhonchi, Stridor - Cardiovascular Exam Cardiovascular Exam: RRR, +S1, +S2 - GI/Abdominal Exam GI & Abdominal Exam: Soft, Normal Bowel Sounds. absent: Distended, Firm, Guarding, Rigid, Tenderness, Rebound - Extremities Exam Extremities Exam: Normal Capillary Refill. absent: Pedal Edema, Tenderness - Neurological Exam Neurological Exam: Alert, Awake, Oriented x3 - Psychiatric Exam Psychiatric exam: Normal Affect, Normal Mood - Skin Skin Exam: Dry, Intact, Normal Color, Warm Assessment and Plan - Assessment and Plan (Free Text) Assessment: (1) Acute Respiratory Distress Assessment and Plan: * Patient has history of COPD per pulmonary * Patient requires max oxygen support per ICU * CT Chest (12/31): interval worsening of nonspecific ground glass opacities in the lungs since the previous exam. Interstitial septal thickening and crazy paving appearance of the lungs. Mild cardiomegaly. Small left pleural effusion. Diffuse lytic bone lesion consistent with multiple myeloma * Solumedrol 40mg IV Q 8 hours was stopped 01/05 * Will need BAL/Bronch to see if patient has invasive myeloma to the lung-->ICU has discussed with patient's pulm 12/31 (2) Fluid Overload Assessment and Plan: * ProBNP : 64555 * Contributing factors: acute on chronic kidney disease and hx of diastolic congestive heart failure * Vascular Surgery: Dr. Ontiveros-->notified by emergency room; for emergent dialysis access * Nephrology: Dr Bill on board-->acute on chronic kidney insufficiency, hypercalcemia; emergent dialysis * Chest Xray (12/25/16): prominent diffuse increased interstital lung markings throughout both lungs suggestive for edema and/or infiltrate * Chest Xray (12/27/16): persistent prominent diffuse increased consolidative changes throughtout both lungs with coarse reticular interstital airspce opacities. More focal confluent airspace consolidative changes in the right right midlung zone and left lung base with small left plueral effusion. Cardiomegaly * Echocardiogram (12/27/16) moderate left ventricular diastolic dysfunction. left atrium is moderately dilated. right atrium is mildly dilated, mitral annular calcification is moderate. mitral velve is calcified and displays decreased opening. Mild mitral valve stenosis. severe pulmonary hypertension., EF: 60% * Monitor intake output * Daily weights * 12/27/16: 2nd dialysis session today--> 2 liters removed * 12/28/16: Spoke with Dr. Bill-->dialysis for tomorrow; pending chest xray read * 12/29/16: stable heterogenous infiltrates are seen diffusely bilaterally and are unchanged compared to 12/28/16 prominent cardiac silhouteete is stable. Fractures at the left 3rd, 6th, and 9th ribs identified at latter stage of healing * 12/30/16: Had dialysis today * 12/31/16: Dialysis not improving lung exam * 01/03/17: Chest X Ray shows mild pulmonary congestion (3) Acute kidney injury superimposed on chronic kidney disease Assessment and Plan: * Nephrology Dr. Bill consulted-->help appreciated * Hepatitis panel: Negative * HIV: negative * Mycoplasma Igm: negative * Legionella; Negative * Vascular Surgery: Dr. 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 * Recommended for SPEP, IPEP--->pending * free light chain lambda: 861479.7 * free light chain kappa: 17.5 * 24 hr urine UPEP-->resulting--> 2108 (high) * urine IPE * beta2 microglobulin * LDH: 522 * Prior SPEP: (12/02/16): M Adarsh migrating in the gamma globulin region; 12/25 : M spike * immuonfixation: pending * BUN/Cr elevated today: 90/7.7 * 12/25 Urinanalysis: +leuk esterase, 2+ protein, + Wbc and + RBC * urine culture: no growth (<1000 CFU/ml) * Ct Abdomen/Pelvis (12/25/16): No evidence of nephrolithiasis or hydronephrosis , 1,5 cm exophyitc high attentuation lesion at the mid to lower pole of right kidney. possibility of renal cell carcinoma should be excluded. 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 Airspace consolidation at left lobe associated with small pleural fussion suspicious for pneumonia * HD through 01/04/17 Status: Acute (4) Possible Multiple Myeloma Assessment and Plan: * Criteria: anemia, renal insufficiency, hypercalcemia * Nephrology Dr. Bill consulted-->help appreciated * Vascular Surgery: Dr. 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 Martinez, patient's for bone marrow biopsy for Sunday and possible start chemotherapy. * Echocardiogram (12/27/16) moderate left ventricular diastolic dysfunction. left atrium is moderately dilated. right atrium is mildly dilated, mitral annular calcification is moderate. mitral valve is calcified and displays decreased opening. Mild mitral valve stenosis. severe pulmonary hypertension., EF: 60% * Monitor intake output * BUN/Cr elevated today: 90/7.7 * 12/25 Urinanalysis: +leuk esterase, 2+ protein, + Wbc and + RBC * urine culture: no growth (<1000 CFU/ml) * Ct Abdomen/Pelvis (12/25/16): No evidence of nephrolithiasis or hydronephrosis , 1,5 cm exophyitc high attentuation lesion at the mid to lower pole of right kidney. possibility of renal cell carcnioma should be excluded. 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 Airspace consolidation at left lobe associated with small pleural fussion suspicious for pneumonia * Chest xray w rib (12/29/16): stable heterogenous infiltrates are seen diffusely bilaterally and are unchanged compared to 12/28/16 prominent cardiac silhouette is stable. Fractures at the left 3rd, 6th, and 9th ribs identified at latter stage of healing * 12/30: Heme-onc unable to do bone marrow biopsy because of patient's shortness of breathe; reports does not need bone marrow biopsy at this time; recommend for port a cath * 12/31: given possibility of invasive myeloma to the lung; may need bronch/bal for diagnosis * 01/03: patient had Angela Cath placed on Left Chest and had Bone Marrow Biopsy by Dr. Martinez * 01/04: Pathology report on Bone Marrow Bx is pending and patient started on Chemo after HD with next planned 1 week from today Status: Acute (5) Hypercalcemia Assessment and Plan: * Likely secondary to Multiple Myeloma * Nephrology (Dr. Bill) on board-->help appreciated * Heme-onc (Dr. Martinez) on board--->help appreciated * PTH related Protein: pending * PTH intact: 14 * Vitamin D: 66.6 * ОЛЕГ: 28 * Ionized Calcium: 6.7 * Possible patient has light chain multiple myeloma * Recommended for SPEP, IPEP--->pending * free light chain lambda: 164501.7 * free light chain kappa: 17.5 * 24 hr urine UPEP--> 2108 (high) * urine IPE--->--->pending * beta2 microglobulin--->--->pending * LDH: 522 * Prior SPEP: (12/02/16): M Adarsh migrating in the gamma globulin region; 12/25 : M spike Status: Acute (6) Possible CHF exacerbation Assessment and Plan: * History of diastolic congestive heart failure * Cardiology (Dr. Little) on consult; covering for Dr. Lynch's patients * ProBNP today: 19059 * Echocardiogram (12/27/16) moderate left ventricular diastolic dysfunction. left atrium is moderately dilated. right atrium is mildly dilated, mitral annular calcification is moderate. mitral valve is calcified and displays decreased opening. Mild mitral valve stenosis. severe pulmonary hypertension., EF: 60% * monitor intake and output * Patient has acute renal failure unable to start ARB/ОЛЕГ * Patient's blood pressure is normotensive w/o beta-vania * Crestor 5mg POqHS * Used to be on Cardizem prior hospitalization but off * Daily Weights Status: Acute (7) Anemia Assessment and Plan: * Heme-onc (Dr. Martinez) on board-->help appreciated * Discussed with PMD: Dr. Winkler-->patient has had workup including GI workup in 2017 in regards to anemia * Thought to be chronic secondary to kidney disease; anemia of critical disease * Continue home meds Ferrous sulfate 325 mg daily * s/p 1 unit of PRBC on 12/25 7.2 * 12/25 stool occult blood: negative * Prior hospitalizations included in patient's chart; awaiting copy of report of GI workup * 01/01: received 2 units PRBC for Hgb<6 * HgB/Hct stable Status: Chronic (8) Atrial fibrillation Assessment and Plan: * Cardiology (Dr. Little) covering for Dr. Lynch's patients * Continue home meds: Amiodarone 200 mg daily, Cardizem 240 mg daily * Patient is not on anticoagulation secondary to anemia * CHADS: 4 (DM, Age, HTN, CHF) * HASBLED:2 (Age and Renal Disease) * 01/04: had episode of rapid AF after HD. Was given Amiodarone 150 mg over 10 minutes and the rate was controlled but then had to be placed on Amiodarone Drip * 01/05: plan is to discontinue Amiodarone Drip at 6:40 PM as she is rate controlled and start Lopressor 25 mg PO BID Status: Acute (9) HTN (hypertension) Assessment and Plan: * Monitor vital signs * Patient is on dialysis secondary to MARIA EUGENIA secondary to Multiple Myeloma Status: Chronic (10) Leukocytosis Assessment and Plan: * In the ED, order for dose of Zosyn and Vancomycin on 12/25 * Strep, legionella: negative and mycoplasma IgM: negative * Patient recently at the hospital within 90 days-->consideration for possible hospital acquired pneumonia * Patient does not meet sepsis critera (04/19: leukocytosis) * Start Zosyn 2.25 gr IV Q8H (active since 12/25/16) and Doxcycline 100mg IV Q 12hours (active since 12/25/16 through 01/04/17) * Blood Culture (12/25/16): no growth after 5 days X 2 * Urine culture (12/25/16): <1000 * Procalcitonin low * Blood Culture (12/29/16): no growth after 3 days x 2 * Solumedrol 40mg IV Q 8 hours per pulmonary (12/27/16 through 01/04/17) * 01/02: currently on Zozyn 2.25 gm IV Q8H (12/25/16) and Bactrim DS 2 tab PO Q24 H (01/02/17: to cover for PCP) * 01/03: started on Zovirax 400 mg PO 1x/day by Heme/Onc Dr. 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 Assessment and Plan: * Continue home meds: Glipizide 10 mg daily * daily Accuchecks QAC and HS * [id number]: 6.1 * Lantus 10 Units SC HS * Regular Insulin 12 Units AC Meals Status: Chronic (14) Hypothyroidism Status: Chronic * TSH: 4.84 * Levothyroxine 75mcg/day Status: Chronic (15) Hepatitis Assessment and Plan: * RUQ pain will f/u Amylase, lipase which are normal * LFTs are normal Status: Chronic (16) History of back pain Assessment and Plan: * held Magnesium oxide 400 mg BID * Tramadol 25 mg 1 tablet Q6hr for break through pain ordered 01/02 * On Lidoderm patch * likely secondary to lytic lesion likely secondary to Multiple Myeloma Status: Acute (17) Lower extremity pain Assessment and Plan: * Held Magnesium oxide 400 mg BID; Tramadol-Acetaminophen 32.5-325 mg 2 tablets Q6hr Status: Acute (18) Prophylactic measure Assessment and Plan: * DVT: SCDs b/l; heparin 5000 units subq12 * GI: Pepcid 20mg PO daily * Monitor intake and output * Daily Weight * PT/OT eval Status: Acute Objective - Vital Signs/Intake and Output Vital Signs (last 24 hours): Temp Pulse Resp BP Pulse Ox 98.6 F 76 14 130/61 98 01/05/17 15:29 01/05/17 18:00 01/05/17 18:00 01/05/17 17:43 01/05/17 18:00 Intake and Output: 01/05/17 01/05/17 06:59 18:59 Intake Total 650 1100.7 Output Total 0 Balance 650 1100.7 - Medications Medications: Current Medications Acyclovir (Zovirax) 400 mg PO DAILY [facility] Last Admin: 01/05/17 09:46 Dose: 400 mg Albuterol/Ipratropium (Duoneb 3 Mg/0.5 Mg (3 Ml) Ud) 3 ml INH RQ6 [facility] Last Admin: 01/05/17 13:30 Dose: 3 ml Famotidine (Pepcid) 20 mg PO DAILY [facility] Last Admin: 01/05/17 09:45 Dose: 20 mg Ferrous Sulfate (Feosol) 325 mg PO DAILY [facility] Last Admin: 01/05/17 09:45 Dose: 325 mg Glipizide (Glucotrol) 10 mg PO DAILY [facility] Heparin Sodium (Porcine) (Heparin) 5,000 units SC Q12 [facility] Last Admin: 12/31/16 21:01 Dose: 5,000 units Piperacillin Sod/Tazobactam Sod (Zosyn 2.25 Gm Iv Premix) 2.25 gm in 50 mls @ 100 mls/hr IVPB Q8H [facility] Last Admin: 01/05/17 15:55 Dose: 100 mls/hr Amiodarone HCl 900 mg/ (Dextrose) 500 mls @ 16.66 mls/hr IV .Q24H ONE; 0.5 MG/ MIN PRN Reason: Protocol Stop: 01/06/17 00:39 Last Admin: 01/05/17 00:40 Dose: Not Given Insulin Glargine (Lantus) 10 unit SC HS [facility] Insulin Human Regular (Novolin R) 0 unit SC ACHS [facility] PRN Reason: Protocol Last Admin: 01/05/17 17:14 Dose: 10 unit Levothyroxine Sodium (Synthroid) 75 mcg PO DAILY@0630 [facility] Last Admin: 01/05/17 06:20 Dose: 75 mcg Lidocaine (Lidoderm) 1 ea TD DAILY [facility] Last Admin: 01/05/17 10:47 Dose: 1 ea Metoprolol Tartrate (Lopressor) 25 mg PO BID [facility] Rosuvastatin Calcium (Crestor) 5 mg PO HS [facility] Last Admin: 01/04/17 21:23 Dose: 5 mg Sevelamer Carbonate (Renvela) 1,600 mg PO TIDCC [facility] Last Admin: 01/05/17 17:14 Dose: 1,600 mg Sodium Chloride (Sodium Chloride Tab) 1 gm PO TID [facility] Last Admin: 01/05/17 17:14 Dose: 1 gm Tramadol HCl (Ultram) 25 mg PO Q6H PRN PRN Reason: Pain, severe (8-10) Last Admin: 01/04/17 23:48 Dose: 25 mg Trimethoprim/Sulfamethoxazole (Bactrim Ss Tab) 1 tab PO DAILY [facility] Last Admin: 01/05/17 09:46 Dose: 1 tab - Labs Labs: 01/05/17 06:26 01/05/17 06:24 PT 13.1 SECONDS (9.7-12.2) H 12/26/16 08:05 INR 1.2 12/26/16 08:05 APTT 27 SECONDS (21-34) 01/01/17 06:00
[2017-01-05] MEDS: (Lantus) Insulin Glargine, Recombinant SC SCH (21:15)
[2017-01-06] MEDS: Albuterol-Ipratrop 3 mg / 0.5 (3 ml) UD INH SCH ×4 (01:51→20:07)
[2017-01-06] MEDS: Tramadol 25 mg PO PRN ×2 (02:35→21:13)
[2017-01-06] MEDS: Levothyroxine 75 MCG TAB PO SCH (05:54)
[2017-01-06] MEDS: Piperacill/Tazo 2.25gm in Dex 2.25 GM/50 ML BAG IVPB SCH ×3 (06:01→22:41)
[2017-01-06 06:51] LABS: BASO # 0.1 K/uL (0.0-0.2); BASO % 0.3 % (0.0-2.0); HEMATOCRIT 29.4 % (34.0-47.0); LYMPH # 0.4 K/uL (1.0-4.3); LYMPH % 1.5 % (20.0-40.0); MEAN CELL VOLUME 91.7 fL (81.0-99.0); MEAN CORPUSCULAR HEMOGLOBIN 30.3 pg (27.0-31.0); MEAN PLATELET VOLUME 9.2 fL (7.2-11.7); MONO # 0.5 K/uL (0.0-0.8); MONO % 1.7 % (0.0-10.0); PLATELET COUNT 122 K/uL (130-400); RED CELL DISTRIBUTION WIDTH 16.2 % (11.5-14.5); WHITE BLOOD COUNT 29.8 K/uL (4.8-10.8)
[2017-01-06 07:04] LABS: POTASSIUM 4.1 mmol/L (3.6-5.2)
[2017-01-06 07:06] LABS: BILIRUBIN,TOTAL 0.5 mg/dL (0.2-1.3)
[2017-01-06 07:07] LABS: ALB/GLOB RATIO 1.2 (1.0-2.1); MAGNESIUM 1.6 mg/dL (1.6-2.3); PHOSPHOROUS 5.7 mg/dL (2.5-4.5); TOTAL PROTEIN 5.3 g/dL (6.3-8.3)
[2017-01-06 07:14] LABS: CALCIUM 5.8 mg/dl (8.6-10.4)
[2017-01-06] MEDS: (Novolin R) Insulin Human Regular 100 units/ml vial SC SCH ×4 (08:22→21:16)
--- NOTE | 2017-01-06 08:44 | CP.PCM.PN ---
Subjective - Date & Time of Evaluation Date of Evaluation: 01/06/17 Time of Evaluation: 08:30 - Subjective Subjective: Hospitalist Progress Note Patient was seen and examined at 8:30 AM 01/06/17 Please see Assessment and Plans below for details Upon ROS Epigastric burning this morning SOB/Breathing is better on the HiFlow Oxygen Stated that she has episodes of nausea and therefore not eating as much NO burning with urination but states that she is not urinating a lot Hard bowel movement today Anxious this morning concerning everything that has been going on with her health NO other complaints - Constitutional Appears: In Acute Distress, Chronically Ill - Head Exam Head Exam: NORMAL INSPECTION - Eye Exam Eye Exam: EOMI, Pupils are round, equal, reactive to light/accomodation - ENT Exam ENT Exam: Mucous Membranes Dry - Respiratory Exam Respiratory Exam: Decreased Breath Sounds, Course breath sounds throughout absent: Rales, Rhonchi, Stridor - Cardiovascular Exam Cardiovascular Exam: RRR, +S1, +S2 - GI/Abdominal Exam GI & Abdominal Exam: Soft, Normal Bowel Sounds. absent: Distended, Firm, Guarding, Rigid, Tenderness, Rebound - Extremities Exam Extremities Exam: Normal Capillary Refill. absent: Pedal Edema, Tenderness - Neurological Exam Neurological Exam: Alert, Awake, Oriented x3 - Psychiatric Exam Psychiatric exam: Normal Affect, Normal Mood - Skin Skin Exam: Dry, Intact, Normal Color, Warm Assessment and Plan - Assessment and Plan (Free Text) Assessment: (1) Acute Respiratory Distress Assessment and Plan: * Patient has history of COPD per pulmonary * Patient requires max oxygen support per ICU * CT Chest (12/31): interval worsening of nonspecific ground glass opacities in the lungs since the previous exam. Interstitial septal thickening and crazy paving appearance of the lungs. Mild cardiomegaly. Small left pleural effusion. Diffuse lytic bone lesion consistent with multiple myeloma * Solumedrol 40mg IV Q 8 hours was stopped 01/05 * Will need BAL/Bronch to see if patient has invasive myeloma to the lung-->ICU has discussed with patient's pulm 12/31 (2) Fluid Overload Assessment and Plan: * ProBNP : 75653 * Contributing factors: acute on chronic kidney disease and hx of diastolic congestive heart failure * Vascular Surgery: Dr. Ontiveros-->notified by emergency room; for emergent dialysis access * Nephrology: Dr Bill on board-->acute on chronic kidney insufficiency, hypercalcemia; emergent dialysis * Chest Xray (12/25/16): prominent diffuse increased interstital lung markings throughout both lungs suggestive for edema and/or infiltrate * Chest Xray (12/27/16): persistent prominent diffuse increased consolidative changes throughtout both lungs with coarse reticular interstital airspce opacities. More focal confluent airspace consolidative changes in the right right midlung zone and left lung base with small left plueral effusion. Cardiomegaly * Echocardiogram (12/27/16) moderate left ventricular diastolic dysfunction. left atrium is moderately dilated. right atrium is mildly dilated, mitral annular calcification is moderate. mitral velve is calcified and displays decreased opening. Mild mitral valve stenosis. severe pulmonary hypertension., EF: 60% * Monitor intake output * Daily weights * 12/27/16: 2nd dialysis session today--> 2 liters removed * 12/28/16: Spoke with Dr. Bill-->dialysis for tomorrow; pending chest xray read * 12/29/16: stable heterogenous infiltrates are seen diffusely bilaterally and are unchanged compared to 12/28/16 prominent cardiac silhouteete is stable. Fractures at the left 3rd, 6th, and 9th ribs identified at latter stage of healing * 12/30/16: Had dialysis today * 12/31/16: Dialysis not improving lung exam * 01/03/17: Chest X Ray shows mild pulmonary congestion (3) Acute kidney injury superimposed on chronic kidney disease Assessment and Plan: * Nephrology Dr. Bill consulted-->help appreciated * Hepatitis panel: Negative * HIV: negative * Mycoplasma Igm: negative * Legionella; Negative * Vascular Surgery: Dr. 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 * Recommended for SPEP, IPEP--->pending * free light chain lambda: 841761.7 * free light chain kappa: 17.5 * 24 hr urine UPEP-->resulting--> 2108 (high) * urine IPE * beta2 microglobulin * LDH: 522 * Prior SPEP: (12/02/16): M Adarsh migrating in the gamma globulin region; 12/25 : M spike * immuonfixation: pending * BUN/Cr elevated today: 90/7.7 * 12/25 Urinanalysis: +leuk esterase, 2+ protein, + Wbc and + RBC * urine culture: no growth (<1000 CFU/ml) * Ct Abdomen/Pelvis (12/25/16): No evidence of nephrolithiasis or hydronephrosis , 1,5 cm exophyitc high attentuation lesion at the mid to lower pole of right kidney. possibility of renal cell carcinoma should be excluded. 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 Airspace consolidation at left lobe associated with small pleural fussion suspicious for pneumonia * On HD through Right Chest Perma Cath with next later today 01/06/17 Status: Acute (4) Possible Multiple Myeloma Assessment and Plan: * Criteria: anemia, renal insufficiency, hypercalcemia * Nephrology Dr. Bill consulted-->help appreciated * Vascular Surgery: Dr. Ontiveros-->help appreciated * Surgery consulted and permacath placed * Heme-Oncology: Dr Martinez-->help appreciated * Possible patient has light chain multiple myeloma * free light chain lambda: 394192.7 * free light chain kappa: 17.5 * 24 hr urine UPEP--> 2108 (high) * urine IPE--->--->pending * beta2 microglobulin--->--->pending * LDH: 522 * Prior SPEP: (12/02/16): M Adarsh migrating in the gamma globulin region; 12/25 : M spike * 12/27: discussed with Dr. Martinez, patient's for bone marrow biopsy for Sunday and possible start chemotherapy. * Echocardiogram (12/27/16) moderate left ventricular diastolic dysfunction. left atrium is moderately dilated. right atrium is mildly dilated, mitral annular calcification is moderate. mitral valve is calcified and displays decreased opening. Mild mitral valve stenosis. severe pulmonary hypertension., EF: 60% * Monitor intake output * BUN/Cr elevated today: 90/7.7 * 12/25 Urinanalysis: +leuk esterase, 2+ protein, + Wbc and + RBC * urine culture: no growth (<1000 CFU/ml) * Ct Abdomen/Pelvis (12/25/16): No evidence of nephrolithiasis or hydronephrosis , 1,5 cm exophyitc high attentuation lesion at the mid to lower pole of right kidney. possibility of renal cell carcnioma should be excluded. 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 Airspace consolidation at left lobe associated with small pleural fussion suspicious for pneumonia * Chest xray w rib (12/29/16): stable heterogenous infiltrates are seen diffusely bilaterally and are unchanged compared to 12/28/16 prominent cardiac silhouette is stable. Fractures at the left 3rd, 6th, and 9th ribs identified at latter stage of healing * 12/30: Heme-onc unable to do bone marrow biopsy because of patient's shortness of breathe; reports does not need bone marrow biopsy at this time; recommend for port a cath * 12/31: given possibility of invasive myeloma to the lung; may need bronch/bal for diagnosis * 01/03: patient had Angela Cath placed on Left Chest and had Bone Marrow Biopsy by Dr. Martinez * 01/04: Pathology report on Bone Marrow Bx is pending and patient started on Chemo after HD with next planned 1 week from today Status: Acute (5) Hypercalcemia Assessment and Plan: * Likely secondary to Multiple Myeloma * Nephrology (Dr. Bill) on board-->help appreciated * Heme-onc (Dr. Martinez) on board--->help appreciated * PTH related Protein: 51 * PTH intact: 14 * Vitamin D: 66.6 * ОЛЕГ: 28 * Ionized Calcium: 6.7 * Possible patient has light chain multiple myeloma * Recommended for SPEP, IPEP--->pending * free light chain lambda: 795910.7 * free light chain kappa: 17.5 * 24 hr urine UPEP--> 2108 (high) * urine IPE--->--->pending * beta2 microglobulin--->--->pending * LDH: 522 * Prior SPEP: (12/02/16): M Adarsh migrating in the gamma globulin region; 12/25 : M spike Status: Acute (6) Possible CHF exacerbation Assessment and Plan: * History of diastolic congestive heart failure * Cardiology (Dr. Little) on consult; covering for Dr. Lynch's patients * ProBNP today: 48517 * Echocardiogram (12/27/16) moderate left ventricular diastolic dysfunction. left atrium is moderately dilated. right atrium is mildly dilated, mitral annular calcification is moderate. mitral valve is calcified and displays decreased opening. Mild mitral valve stenosis. severe pulmonary hypertension., EF: 60% * monitor intake and output * Patient has acute renal failure unable to start ARB/ОЛЕГ * Patient's blood pressure is normotensive w/o beta-vania * Crestor 5mg POqHS * Used to be on Cardizem prior hospitalization but off * Daily Weights Status: Acute (7) Anemia Assessment and Plan: * Heme-onc (Dr. Martinez) on board-->help appreciated * Discussed with PMD: Dr. Winkler-->patient has had workup including GI workup in 2017 in regards to anemia * Thought to be chronic secondary to kidney disease; anemia of critical disease * Continue home meds Ferrous sulfate 325 mg daily * s/p 1 unit of PRBC on 12/25 7.2 * 12/25 stool occult blood: negative * Prior hospitalizations included in patient's chart; awaiting copy of report of GI workup * 01/01: received 2 units PRBC for Hgb<6 * HgB/Hct stable Status: Chronic (8) Atrial fibrillation Assessment and Plan: * Cardiology (Dr. Ltitle) covering for Dr. Lynch's patients * Continue home meds: Amiodarone 200 mg daily, Cardizem 240 mg daily * Patient is not on anticoagulation secondary to anemia * CHADS: 4 (DM, Age, HTN, CHF) * HASBLED:2 (Age and Renal Disease) * 01/04: had episode of rapid AF after HD. Was given Amiodarone 150 mg over 10 minutes and the rate was controlled but then had to be placed on Amiodarone Drip * 01/05: Discontinued Amiodarone Drip at 6:40 PM as she is rate controlled and started Lopressor 25 mg PO BID * 01/06: Better rate controlled Status: Acute (9) HTN (hypertension) Assessment and Plan: * Monitor vital signs * Patient is on dialysis secondary to MARIA EUGENIA secondary to Multiple Myeloma Status: Chronic (10) Leukocytosis Assessment and Plan: * In the ED, order for dose of Zosyn and Vancomycin on 12/25 * Strep, legionella: negative and mycoplasma IgM: negative * Patient recently at the hospital within 90 days-->consideration for possible hospital acquired pneumonia * Patient does not meet sepsis critera (1/4: leukocytosis) * Start Zosyn 2.25 gr IV Q8H (active since 12/25/16) and Doxcycline 100mg IV Q 12hours (active since 12/25/16 through 01/04/17) * Blood Culture (12/25/16): no growth after 5 days X 2 * Urine culture (12/25/16): <1000 * Procalcitonin low * Blood Culture (12/29/16): no growth after 3 days x 2 * Solumedrol 40mg IV Q 8 hours per pulmonary (12/27/16 through 01/04/17) * 01/02: currently on Zozyn 2.25 gm IV Q8H (12/25/16) and Bactrim DS 2 tab PO Q24 H (01/02/17: to cover for PCP) * 01/03: started on Zovirax 400 mg PO 1x/day by Heme/Onc Dr. 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 Assessment and Plan: * Continue home meds: Glipizide 10 mg daily * daily Accuchecks QAC and HS * [id number]: 6.1 * Lantus 10 Units SC HS * Regular Insulin 12 Units AC Meals Status: Chronic (14) Hypothyroidism Status: Chronic * TSH: 4.84 * Levothyroxine 75mcg/day Status: Chronic (15) Hepatitis Assessment and Plan: * RUQ pain will f/u Amylase, lipase which are normal * LFTs are normal Status: Chronic (16) History of back pain Assessment and Plan: * held Magnesium oxide 400 mg BID * Tramadol 25 mg 1 tablet Q6hr for break through pain ordered 01/02 * On Lidoderm patch * likely secondary to lytic lesion likely secondary to Multiple Myeloma Status: Acute (17) Lower extremity pain Assessment and Plan: * Held Magnesium oxide 400 mg BID; Tramadol-Acetaminophen 32.5-325 mg 2 tablets Q6hr Status: Acute (18) Prophylactic measure Assessment and Plan: * DVT: SCDs b/l; heparin 5000 units subq12 * GI: Pepcid 20mg PO was increased to 20 mg PO BID (01/06/17) * Monitor intake and output * Daily Weight * PT/OT eval Status: Acute Objective - Vital Signs/Intake and Output Vital Signs (last 24 hours): Temp Pulse Resp BP Pulse Ox 98.4 F 59 L 17 93/39 L 97 01/06/17 08:00 01/06/17 07:00 01/06/17 08:18 01/06/17 06:43 01/06/17 07:00 Intake and Output: 01/06/17 01/06/17 06:59 18:59 Intake Total 50 Balance 50 - Medications Medications: Current Medications Acyclovir (Zovirax) 400 mg PO DAILY [facility] Last Admin: 01/05/17 09:46 Dose: 400 mg Albuterol/Ipratropium (Duoneb 3 Mg/0.5 Mg (3 Ml) Ud) 3 ml INH RQ6 [facility] Last Admin: 01/06/17 08:16 Dose: 3 ml Docusate Sodium (Colace) 100 mg PO TID [facility] Famotidine (Pepcid) 20 mg PO DAILY [facility] Last Admin: 01/05/17 09:45 Dose: 20 mg Ferrous Sulfate (Feosol) 325 mg PO DAILY [facility] Last Admin: 01/05/17 09:45 Dose: 325 mg Glipizide (Glucotrol) 10 mg PO DAILY [facility] Heparin Sodium (Porcine) (Heparin) 5,000 units SC Q12 [facility] Last Admin: 01/05/17 21:14 Dose: 5,000 units Piperacillin Sod/Tazobactam Sod (Zosyn 2.25 Gm Iv Premix) 2.25 gm in 50 mls @ 100 mls/hr IVPB Q8H [facility] Last Admin: 01/06/17 06:01 Dose: 100 mls/hr Insulin Glargine (Lantus) 10 unit SC HS [facility] Last Admin: 01/05/17 21:15 Dose: 10 units Insulin Human Regular (Novolin R) 0 unit SC ACHS [facility] PRN Reason: Protocol Last Admin: 01/06/17 08:22 Dose: Not Given Levothyroxine Sodium (Synthroid) 75 mcg PO DAILY@0630 [facility] Last Admin: 01/06/17 05:54 Dose: 75 mcg Lidocaine (Lidoderm) 1 ea TD DAILY [facility] Last Admin: 01/05/17 10:47 Dose: 1 ea Metoprolol Tartrate (Lopressor) 25 mg PO BID [facility] Last Admin: 01/05/17 18:42 Dose: 25 mg Rosuvastatin Calcium (Crestor) 5 mg PO HS [facility] Last Admin: 01/05/17 21:15 Dose: 5 mg Sevelamer Carbonate (Renvela) 1,600 mg PO TIDCC [facility] Last Admin: 01/05/17 17:14 Dose: 1,600 mg Sodium Chloride (Sodium Chloride Tab) 1 gm PO TID [facility] Last Admin: 01/05/17 17:14 Dose: 1 gm Tramadol HCl (Ultram) 25 mg PO Q6H PRN PRN Reason: Pain, severe (8-10) Last Admin: 01/06/17 02:35 Dose: 25 mg Trimethoprim/Sulfamethoxazole (Bactrim Ss Tab) 1 tab PO DAILY [facility] Last Admin: 01/05/17 09:46 Dose: 1 tab - Labs Labs: 01/06/17 06:44 01/06/17 06:44 PT 13.1 SECONDS (9.7-12.2) H 12/26/16 08:05 INR 1.2 12/26/16 08:05 APTT 27 SECONDS (21-34) 01/01/17 06:00
[2017-01-06 08:51] LABS: NEUTROPHIL 92 % (50-75); TOTAL CELLS COUNTED 100
[2017-01-06 08:53] LABS: GIANT PLATELETS PRESENT; LARGE PLATELETS PRESENT
--- NOTE | 2017-01-06 09:01 | CP.PCM.PN ---
Subjective - Date & Time of Evaluation Date of Evaluation: 01/06/17 Time of Evaluation: 09:00 - Subjective Subjective: anuric creatinine rises without dialysis appears anxious ROS no headaches dizziness left sided chest pain for awhile cough with brownish sputum intermittent nausea vomiting no abd pain,constipated minimal urine.no dysuria Objective - Vital Signs/Intake and Output Vital Signs (last 24 hours): Temp Pulse Resp BP Pulse Ox 98.4 F 59 L 17 93/39 L 97 01/06/17 08:00 01/06/17 07:00 01/06/17 08:18 01/06/17 06:43 01/06/17 07:00 Intake and Output: 01/06/17 01/06/17 06:59 18:59 Intake Total 50 Balance 50 - Medications Medications: Current Medications Acyclovir (Zovirax) 400 mg PO DAILY [facility] Last Admin: 01/05/17 09:46 Dose: 400 mg Albuterol/Ipratropium (Duoneb 3 Mg/0.5 Mg (3 Ml) Ud) 3 ml INH RQ6 [facility] Last Admin: 01/06/17 08:16 Dose: 3 ml Docusate Sodium (Colace) 100 mg PO TID [facility] Famotidine (Pepcid) 20 mg PO BID [facility] Ferrous Sulfate (Feosol) 325 mg PO DAILY [facility] Last Admin: 01/05/17 09:45 Dose: 325 mg Glipizide (Glucotrol) 10 mg PO DAILY [facility] Heparin Sodium (Porcine) (Heparin) 5,000 units SC Q12 [facility] Last Admin: 01/05/17 21:14 Dose: 5,000 units Piperacillin Sod/Tazobactam Sod (Zosyn 2.25 Gm Iv Premix) 2.25 gm in 50 mls @ 100 mls/hr IVPB Q8H [facility] Last Admin: 01/06/17 06:01 Dose: 100 mls/hr Insulin Glargine (Lantus) 10 unit SC HS [facility] Last Admin: 01/05/17 21:15 Dose: 10 units Insulin Human Regular (Novolin R) 0 unit SC ACHS [facility] PRN Reason: Protocol Last Admin: 01/06/17 08:22 Dose: Not Given Levothyroxine Sodium (Synthroid) 75 mcg PO DAILY@0630 [facility] Last Admin: 01/06/17 05:54 Dose: 75 mcg Lidocaine (Lidoderm) 1 ea TD DAILY [facility] Last Admin: 01/05/17 10:47 Dose: 1 ea Metoprolol Tartrate (Lopressor) 25 mg PO BID [facility] Last Admin: 01/05/17 18:42 Dose: 25 mg Rosuvastatin Calcium (Crestor) 5 mg PO HS [facility] Last Admin: 01/05/17 21:15 Dose: 5 mg Sevelamer Carbonate (Renvela) 1,600 mg PO TIDCC [facility] Last Admin: 01/06/17 08:38 Dose: 1,600 mg Sodium Chloride (Sodium Chloride Tab) 1 gm PO TID [facility] Last Admin: 01/05/17 17:14 Dose: 1 gm Tramadol HCl (Ultram) 25 mg PO Q6H PRN PRN Reason: Pain, severe (8-10) Last Admin: 01/06/17 02:35 Dose: 25 mg Trimethoprim/Sulfamethoxazole (Bactrim Ss Tab) 1 tab PO DAILY [facility] Last Admin: 01/05/17 09:46 Dose: 1 tab - Labs Labs: 01/06/17 06:44 01/06/17 06:44 PT 13.1 SECONDS (9.7-12.2) H 12/26/16 08:05 INR 1.2 12/26/16 08:05 APTT 27 SECONDS (21-34) 01/01/17 06:00 - Constitutional Appears: No Acute Distress - Eye Exam Eye Exam: Normal appearance - ENT Exam ENT Exam: Mucous Membranes Moist - Respiratory Exam Respiratory Exam: Chest Wall Tenderness Additional comments: exquisitelty tender left chest anterior to palpation - Cardiovascular Exam Cardiovascular Exam: REGULAR RHYTHM. absent: JVD - GI/Abdominal Exam GI & Abdominal Exam: Soft. absent: Distended, Tenderness - Extremities Exam Extremities Exam: absent: Calf Tenderness, Pedal Edema - Psychiatric Exam Psychiatric exam: Anxious Assessment and Plan (1) Myeloma kidney Status: Acute (2) Myeloma Status: Acute (3) CHF (congestive heart failure) Status: Acute (4) COPD (chronic obstructive pulmonary disease) Status: Acute (5) Diabetes Status: Chronic - Assessment and Plan (Free Text) Plan: dialysis today with ultrafiltration chemo per oncology continue to follow for possible recovery
[2017-01-06] MEDS ORDERED: MethylPREDNISolone 40 mg Vial IVP SCH (10:00)
[2017-01-06] MEDS: Lidocaine 5% Patch TD SCH (13:23)
[2017-01-06] MEDS: Tmp-Smz 400 mg-80 mg SS Tab PO SCH (13:28)
[2017-01-06] MEDS: (Lantus) Insulin Glargine, Recombinant SC SCH (21:13)
[2017-01-07] MEDS: Albuterol-Ipratrop 3 mg / 0.5 (3 ml) UD INH SCH ×4 (01:17→19:37)
--- NOTE | 2017-01-07 01:20 | CP.CCUPN ---
CCU Subjective - Physician Review Events Since Last Encounter (Free Text): 01/07/17 01:20 Patient is currently doing well. Received hemodialysis. On FiO2 of 73%. High flow Vital signs reviewed No neck vein distention noted Chest good air entry bilaterally, no wheezing or rales noted CVS regular heart sound, no murmur noted Abdomen soft, nontender. Extremities no pedal edema [employer] alert awake oriented 3, no functional neurological deficit Assessment and recommendation: 81 female multiple myeloma admitted with renal insufficiency, anemia, lung disease reduce fio2 transfer if stable 01/07/17 08:46 CCU Objective - Vital Signs / Intake & Output Vital Signs (Last 4 hours): Vital Signs Temp Pulse Resp BP Pulse Ox 01/07/17 01:18 16 01/07/17 00:30 77 16 115/43 L 99 01/07/17 00:00 98.3 F 84 14 96 01/06/17 23:29 76 18 104/44 L 96 01/06/17 23:00 76 17 96 01/06/17 22:41 18 01/06/17 22:29 76 18 92/41 L 97 01/06/17 22:00 77 18 91/37 L 98 01/06/17 21:32 77 16 91/37 L 98 Intake and Output (Last 8hrs): Intake & Output 01/06/17 01/06/17 01/07/17 14:59 22:59 06:59 Intake Total 50 50 Balance 50 50 Intake: Intake, IV Amount 50 right arm 50 Oral 50 - Physical Exam Head: Positive for: Atraumatic, Normocephalic Pupils: Positive for: PERRL Extroacular Muscles: Positive for: EOMI Mouth: Positive for: Moist Mucous Membranes Respiratory/Chest: Positive for: Rhonchi Cardiovascular: Positive for: Regular Rate and Rhythm, Normal S1, S2 Abdomen: Positive for: Normal Bowel Sounds. Negative for: Tenderness, Distention Upper Extremity: Negative for: Edema Lower Extremity: Negative for: Edema Neurological: Positive for: CN II-XII Intact, Speech Normal Psychiatric: Positive for: Alert, Oriented x 3, Normal Insight - Medications Active Medications: Active Medications Generic Name Dose Route Start Last Admin Trade Name Freq PRN Reason Stop Dose Admin Acyclovir 400 mg 01/03/17 10:00 01/06/17 13:28 Zovirax PO 400 mg DAILY MARIBETH Administration Albuterol/Ipratropium 3 ml 01/02/17 14:00 01/07/17 01:17 Duoneb 3 Mg/0.5 Mg (3 Ml) Ud INH Not Given RQ6 MARIBETH Docusate Sodium 100 mg 01/06/17 10:00 01/06/17 17:50 Colace PO 100 mg TID MARIBETH Administration Famotidine 20 mg 01/06/17 10:00 01/06/17 13:28 Pepcid PO 20 mg DAILY MARIBETH Administration Ferrous Sulfate 325 mg 12/26/16 10:00 01/06/17 13:29 Feosol PO 325 mg DAILY MARIBETH Administration Glipizide 10 mg 01/05/17 11:48 01/06/17 13:53 Glucotrol PO Not Given DAILY [facility] Heparin Sodium (Porcine) 5,000 units 12/30/16 10:00 01/06/17 21:12 Heparin SC 5,000 units Q12 MARIBETH Administration Piperacillin Sod/Tazobactam Sod 2.25 gm in 50 mls @ 100 mls/hr 12/25/16 23:00 01/06/17 22:41 Zosyn 2.25 Gm Iv Premix IVPB 100 mls/hr Q8H MARIBETH Administration Insulin Glargine 10 unit 01/05/17 22:00 01/06/17 21:13 Lantus SC 10 units HS MARIBETH Administration Insulin Human Regular 0 unit 12/31/16 10:15 01/06/17 21:16 Novolin R SC 2 unit ACHS MARIBETH Administration Protocol Levothyroxine Sodium 75 mcg 12/26/16 06:30 01/06/17 05:54 Synthroid PO 75 mcg DAILY@0630 MARIBETH Administration Lidocaine 1 ea 12/30/16 21:00 01/06/17 13:23 Lidoderm TD Not Given DAILY [facility] Metoprolol Tartrate 25 mg 01/05/17 18:00 01/06/17 17:50 Lopressor PO Not Given BID [facility] Ondansetron HCl 4 mg 01/06/17 11:29 01/06/17 13:30 Zofran Inj IVP 4 mg Q6H PRN Administration Nausea/Vomiting Rosuvastatin Calcium 5 mg 12/30/16 22:00 01/06/17 21:13 Crestor PO 5 mg HS MARIBETH Administration Sevelamer Carbonate 1,600 mg 12/30/16 08:00 01/06/17 16:39 Renvela PO 1,600 mg TIDCC MARIBETH Administration Sodium Chloride 1 gm 01/05/17 14:00 01/06/17 17:50 Sodium Chloride Tab PO 1 gm TID MARIBETH Administration Tramadol HCl 25 mg 01/02/17 09:31 01/06/17 21:13 Ultram PO 25 mg Q6H PRN Administration Pain, severe (8-10) Trimethoprim/Sulfamethoxazole 1 tab 01/04/17 10:00 01/06/17 13:28 Bactrim Ss Tab PO 1 tab DAILY MARIBETH Administration - Patient Studies Lab Studies: Lab Studies 01/06/17 01/06/17 01/06/17 Range/Units 21:09 16:08 11:21 WBC (4.8-10.8) K/uL RBC (3.80-5.20) Mil/uL Hgb (11.0-16.0) g/dL Hct (34.0-47.0) % MCV (81.0-99.0) fL MCH (27.0-31.0) pg MCHC (33.0-37.0) g/dL RDW (11.5-14.5) % Plt Count (130-400) K/uL MPV (7.2-11.7) fL Neut % (Auto) (50.0-75.0) % Lymph % (Auto) (20.0-40.0) % Maverick % (Auto) (0.0-10.0) % Eos % (Auto) (0.0-4.0) % Baso % (Auto) (0.0-2.0) % Neut # (1.8-7.0) K/uL Lymph # (1.0-4.3) K/uL Maverick # (0.0-0.8) K/uL Eos # (0.0-0.7) K/uL Baso # (0.0-0.2) K/uL Neutrophils % (Manual) (50-75) % Band Neutrophils % (0-2) % Lymphocytes % (Manual) (20-40) % Monocytes % (Manual) (0-10) % Platelet Estimate (NORMAL) Large Platelets Giant Platelets Polychromasia Hypochromasia (manual) Basophilic Stippling Anisocytosis (manual) Sodium (132-148) mmol/L Potassium (3.6-5.2) mmol/L Chloride (98-107) mmol/L Carbon Dioxide (22-30) mmol/L Anion Gap (10-20) BUN (7-17) mg/dL Creatinine (0.7-1.2) MG/DL Est GFR ( Amer) Est GFR (Non-Af Amer) POC Glucose (mg/dL) 308 H 154 H 101 (65-110) mg/dL Random Glucose (65-105) mg/dL Calcium (8.6-10.4) mg/dl Phosphorus (2.5-4.5) mg/dL Magnesium (1.6-2.3) mg/dL Total Bilirubin (0.2-1.3) mg/dL AST (14-36) U/L ALT (9-52) U/L Alkaline Phosphatase (38-126) U/L Total Protein (6.3-8.3) g/dL Albumin (3.5-5.0) g/dL Globulin (2.2-3.9) gm/dL Albumin/Globulin Ratio (1.0-2.1) 01/06/17 01/06/17 01/06/17 Range/Units 08:19 06:44 06:44 WBC 29.8 H (4.8-10.8) K/uL RBC 3.20 L (3.80-5.20) Mil/uL Hgb 9.7 L (11.0-16.0) g/dL Hct 29.4 L (34.0-47.0) % MCV 91.7 (81.0-99.0) fL MCH 30.3 (27.0-31.0) pg MCHC 33.0 (33.0-37.0) g/dL RDW 16.2 H (11.5-14.5) % Plt Count 122 L D (130-400) K/uL MPV 9.2 (7.2-11.7) fL Neut % (Auto) 96.5 H (50.0-75.0) % Lymph % (Auto) 1.5 L (20.0-40.0) % Maverick % (Auto) 1.7 (0.0-10.0) % Eos % (Auto) 0.0 (0.0-4.0) % Baso % (Auto) 0.3 (0.0-2.0) % Neut # 28.8 H (1.8-7.0) K/uL Lymph # 0.4 L (1.0-4.3) K/uL Maverick # 0.5 (0.0-0.8) K/uL Eos # 0.0 (0.0-0.7) K/uL Baso # 0.1 (0.0-0.2) K/uL Neutrophils % (Manual) 92 H (50-75) % Band Neutrophils % 2 (0-2) % Lymphocytes % (Manual) 3 L (20-40) % Monocytes % (Manual) 3 (0-10) % Platelet Estimate Slightly decreased L (NORMAL) Large Platelets Present Giant Platelets Present Polychromasia Slight Hypochromasia (manual) Slight Basophilic Stippling Slight Anisocytosis (manual) Slight Sodium 132 (132-148) mmol/L Potassium 4.1 (3.6-5.2) mmol/L Chloride 86 L (98-107) mmol/L Carbon Dioxide 18 L (22-30) mmol/L Anion Gap 32 H (10-20) BUN 76 H (7-17) mg/dL Creatinine 5.2 H (0.7-1.2) MG/DL Est GFR ( Amer) 10 Est GFR (Non-Af Amer) 8 POC Glucose (mg/dL) 106 (65-110) mg/dL Random Glucose 128 H (65-105) mg/dL Calcium 5.8 L* (8.6-10.4) mg/dl Phosphorus 5.7 H (2.5-4.5) mg/dL Magnesium 1.6 (1.6-2.3) mg/dL Total Bilirubin 0.5 (0.2-1.3) mg/dL AST 11 L (14-36) U/L ALT 29 (9-52) U/L Alkaline Phosphatase 45 (38-126) U/L Total Protein 5.3 L (6.3-8.3) g/dL Albumin 2.9 L (3.5-5.0) g/dL Globulin 2.4 (2.2-3.9) gm/dL Albumin/Globulin Ratio 1.2 (1.0-2.1) Laboratory Results - last 24 hr 01/06/17 01/06/17 01/06/17 06:44 06:44 08:19 WBC 29.8 H RBC 3.20 L Hgb 9.7 L Hct 29.4 L MCV 91.7 MCH 30.3 MCHC 33.0 RDW 16.2 H Plt Count 122 L D MPV 9.2 Neut % (Auto) 96.5 H Lymph % (Auto) 1.5 L Maverick % (Auto) 1.7 Eos % (Auto) 0.0 Baso % (Auto) 0.3 Neut # 28.8 H Lymph # 0.4 L Maverick # 0.5 Eos # 0.0 Baso # 0.1 Neutrophils % (Manual) 92 H Band Neutrophils % 2 Lymphocytes % (Manual) 3 L Monocytes % (Manual) 3 Platelet Estimate Slightly decreased L Large Platelets Present Giant Platelets Present Polychromasia Slight Hypochromasia (manual) Slight Basophilic Stippling Slight Anisocytosis (manual) Slight Sodium 132 Potassium 4.1 Chloride 86 L Carbon Dioxide 18 L Anion Gap 32 H BUN 76 H Creatinine 5.2 H Est GFR ( Amer) 10 Est GFR (Non-Af Amer) 8 POC Glucose (mg/dL) 106 Random Glucose 128 H Calcium 5.8 L* Phosphorus 5.7 H Magnesium 1.6 Total Bilirubin 0.5 AST 11 L ALT 29 Alkaline Phosphatase 45 Total Protein 5.3 L Albumin 2.9 L Globulin 2.4 Albumin/Globulin Ratio 1.2 01/06/17 01/06/17 01/06/17 11:21 16:08 21:09 WBC RBC Hgb Hct MCV MCH MCHC RDW Plt Count MPV Neut % (Auto) Lymph % (Auto) Maverick % (Auto) Eos % (Auto) Baso % (Auto) Neut # Lymph # Maverick # Eos # Baso # Neutrophils % (Manual) Band Neutrophils % Lymphocytes % (Manual) Monocytes % (Manual) Platelet Estimate Large Platelets Giant Platelets Polychromasia Hypochromasia (manual) Basophilic Stippling Anisocytosis (manual) Sodium Potassium Chloride Carbon Dioxide Anion Gap BUN Creatinine Est GFR ( Amer) Est GFR (Non-Af Amer) POC Glucose (mg/dL) 101 154 H 308 H Random Glucose Calcium Phosphorus Magnesium Total Bilirubin AST ALT Alkaline Phosphatase Total Protein Albumin Globulin Albumin/Globulin Ratio Fingerstick Blood Sugar Results: 308 Critical Care Progress Note - Nutrition Nutrition: Nutrition Category Date Time Status Renal Diet [DIET] Diets 01/03/17 Lunch Active
[2017-01-07] MEDS: Levothyroxine 75 MCG TAB PO SCH (05:34)
[2017-01-07] MEDS: Piperacill/Tazo 2.25gm in Dex 2.25 GM/50 ML BAG IVPB SCH ×3 (06:28→22:00)
[2017-01-07 06:30] LABS: BASO % 0.2 % (0.0-2.0); HEMATOCRIT 29.2 % (34.0-47.0); LYMPH # 0.3 K/uL (1.0-4.3); LYMPH % 1.7 % (20.0-40.0); MEAN CELL VOLUME 91.8 fL (81.0-99.0); MEAN CORPUSCULAR HEMOGLOBIN 30.4 pg (27.0-31.0); MEAN CORPUSCULAR HGB CONC 33.2 g/dL (33.0-37.0); MEAN PLATELET VOLUME 9.8 fL (7.2-11.7); MONO # 0.6 K/uL (0.0-0.8); MONO % 2.7 % (0.0-10.0); PLATELET COUNT 90 K/uL (130-400); RED CELL DISTRIBUTION WIDTH 16.3 % (11.5-14.5); WHITE BLOOD COUNT 20.4 K/uL (4.8-10.8)
[2017-01-07 06:44] LABS: ALB/GLOB RATIO 1.7 (1.0-2.1); BILIRUBIN,TOTAL 0.5 mg/dL (0.2-1.3); CALCIUM 6.5 mg/dl (8.6-10.4); PHOSPHOROUS 5.2 mg/dL (2.5-4.5); POTASSIUM 4.5 mmol/L (3.6-5.2); TOTAL PROTEIN 4.9 g/dL (6.3-8.3)
--- NOTE | 2017-01-07 07:55 | CP.PCM.PN ---
Subjective - Date & Time of Evaluation Date of Evaluation: 01/06/17 Time of Evaluation: 07:20 - Subjective Subjective: Patient seen and evaluated Denies chest pain Less short of breath Physical Examination - Eye Exam Eye Exam: EOMI, Normal appearance - ENT Exam ENT Exam: Mucous Membranes Moist - Respiratory Exam Respiratory Exam: Decreased Breath Sounds, NORMAL BREATHING PATTERN - Cardiovascular Exam Cardiovascular Exam: RRR, +S1, +S2 - GI/Abdominal Exam GI & Abdominal Exam: Soft, Normal Bowel Sounds - Extremities Exam Extremities Exam: Normal Capillary Refill - Neurological Exam Neurological Exam: Alert, Awake, Oriented x3 - Psychiatric Exam Psychiatric exam: Normal Affect, Normal Mood - Skin Skin Exam: Normal Color, Warm Objective - Vital Signs/Intake and Output Vital Signs (last 24 hours): Temp Pulse Resp BP Pulse Ox 98.2 F 69 14 93/34 L 99 01/07/17 04:00 01/07/17 07:00 01/07/17 07:00 01/07/17 06:30 01/07/17 07:00 Intake and Output: 01/07/17 01/07/17 06:59 18:59 Intake Total 150 50 Balance 150 50 - Medications Medications: Current Medications Acyclovir (Zovirax) 400 mg PO DAILY [facility] Last Admin: 01/06/17 13:28 Dose: 400 mg Albuterol/Ipratropium (Duoneb 3 Mg/0.5 Mg (3 Ml) Ud) 3 ml INH RQ6 [facility] Last Admin: 01/07/17 01:17 Dose: Not Given Docusate Sodium (Colace) 100 mg PO TID [facility] Last Admin: 01/06/17 17:50 Dose: 100 mg Famotidine (Pepcid) 20 mg PO DAILY [facility] Last Admin: 01/06/17 13:28 Dose: 20 mg Ferrous Sulfate (Feosol) 325 mg PO DAILY [facility] Last Admin: 01/06/17 13:29 Dose: 325 mg Glipizide (Glucotrol) 10 mg PO DAILY [facility] Last Admin: 01/06/17 13:53 Dose: Not Given Heparin Sodium (Porcine) (Heparin) 5,000 units SC Q12 [facility] Last Admin: 01/06/17 21:12 Dose: 5,000 units Piperacillin Sod/Tazobactam Sod (Zosyn 2.25 Gm Iv Premix) 2.25 gm in 50 mls @ 100 mls/hr IVPB Q8H [facility] Last Admin: 01/07/17 06:28 Dose: 100 mls/hr Insulin Glargine (Lantus) 10 unit SC HS [facility] Last Admin: 01/06/17 21:13 Dose: 10 units Insulin Human Regular (Novolin R) 0 unit SC ACHS MARIBETH PRN Reason: Protocol Last Admin: 01/06/17 21:16 Dose: 2 unit Levothyroxine Sodium (Synthroid) 75 mcg PO DAILY@0630 [facility] Last Admin: 01/07/17 05:34 Dose: 75 mcg Lidocaine (Lidoderm) 1 ea TD DAILY [facility] Last Admin: 01/06/17 13:23 Dose: Not Given Metoprolol Tartrate (Lopressor) 25 mg PO BID [facility] Last Admin: 01/06/17 17:50 Dose: Not Given Ondansetron HCl (Zofran Inj) 4 mg IVP Q6H PRN PRN Reason: Nausea/Vomiting Last Admin: 01/06/17 13:30 Dose: 4 mg Rosuvastatin Calcium (Crestor) 5 mg PO HS [facility] Last Admin: 01/06/17 21:13 Dose: 5 mg Sevelamer Carbonate (Renvela) 1,600 mg PO TIDCC [facility] Last Admin: 01/06/17 16:39 Dose: 1,600 mg Sodium Chloride (Sodium Chloride Tab) 1 gm PO TID [facility] Last Admin: 01/06/17 17:50 Dose: 1 gm Tramadol HCl (Ultram) 25 mg PO Q6H PRN PRN Reason: Pain, severe (8-10) Last Admin: 01/06/17 21:13 Dose: 25 mg Trimethoprim/Sulfamethoxazole (Bactrim Ss Tab) 1 tab PO DAILY [facility] Last Admin: 01/06/17 13:28 Dose: 1 tab - Labs Labs: 01/07/17 06:26 01/07/17 06:26 PT 13.1 SECONDS (9.7-12.2) H 12/26/16 08:05 INR 1.2 12/26/16 08:05 APTT 27 SECONDS (21-34) 01/01/17 06:00 Assessment and Plan - Assessment and Plan (Free Text) Assessment: (1) Acute Respiratory Distress Assessment and Plan: * Patient has history of COPD per pulmonary * Patient requires max oxygen support per ICU * CT Chest (12/31): interval worsening of nonspecific ground glass opacities in the lungs since the previous exam. Interstitial septal thickening and crazy paving appearance of the lungs. Mild cardiomegaly. Small left pleural effusion. Diffuse lytic bone lesion consistent with multiple myeloma * Solumedrol 40mg IV Q 8 hours was stopped 01/05 * Will need BAL/Bronch to see if patient has invasive myeloma to the lung-->ICU has discussed with patient's pulm 12/31 (2) Fluid Overload Assessment and Plan: * ProBNP : 28920 * Contributing factors: acute on chronic kidney disease and hx of diastolic congestive heart failure * Vascular Surgery: Dr. Ontiveros-->notified by emergency room; for emergent dialysis access * Nephrology: Dr Bill on board-->acute on chronic kidney insufficiency, hypercalcemia; emergent dialysis * Chest Xray (12/25/16): prominent diffuse increased interstital lung markings throughout both lungs suggestive for edema and/or infiltrate * Chest Xray (12/27/16): persistent prominent diffuse increased consolidative changes throughtout both lungs with coarse reticular interstital airspce opacities. More focal confluent airspace consolidative changes in the right right midlung zone and left lung base with small left plueral effusion. Cardiomegaly * Echocardiogram (12/27/16) moderate left ventricular diastolic dysfunction. left atrium is moderately dilated. right atrium is mildly dilated, mitral annular calcification is moderate. mitral velve is calcified and displays decreased opening. Mild mitral valve stenosis. severe pulmonary hypertension., EF: 60% * Monitor intake output * Daily weights * 12/27/16: 2nd dialysis session today--> 2 liters removed * 12/28/16: Spoke with Dr. Bill-->dialysis for tomorrow; pending chest xray read * 12/29/16: stable heterogenous infiltrates are seen diffusely bilaterally and are unchanged compared to 12/28/16 prominent cardiac silhouteete is stable. Fractures at the left 3rd, 6th, and 9th ribs identified at latter stage of healing * 12/30/16: Had dialysis today * 12/31/16: Dialysis not improving lung exam * 01/03/17: Chest X Ray shows mild pulmonary congestion (3) Acute kidney injury superimposed on chronic kidney disease Assessment and Plan: * Nephrology Dr. Bill consulted-->help appreciated * Hepatitis panel: Negative * HIV: negative * Mycoplasma Igm: negative * Legionella; Negative * Vascular Surgery: Dr. 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 * Recommended for SPEP, IPEP--->pending * free light chain lambda: 854895.7 * free light chain kappa: 17.5 * 24 hr urine UPEP-->resulting--> 2108 (high) * urine IPE * beta2 microglobulin * LDH: 522 * Prior SPEP: (12/02/16): M Adarsh migrating in the gamma globulin region; 12/25 : M spike * immuonfixation: pending * BUN/Cr elevated today: 90/7.7 * 12/25 Urinanalysis: +leuk esterase, 2+ protein, + Wbc and + RBC * urine culture: no growth (<1000 CFU/ml) * Ct Abdomen/Pelvis (12/25/16): No evidence of nephrolithiasis or hydronephrosis , 1,5 cm exophyitc high attentuation lesion at the mid to lower pole of right kidney. possibility of renal cell carcinoma should be excluded. 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 Airspace consolidation at left lobe associated with small pleural fussion suspicious for pneumonia * HD through 01/04/17 Status: Acute (4) Possible Multiple Myeloma Assessment and Plan: * Criteria: anemia, renal insufficiency, hypercalcemia * Nephrology Dr. Bill consulted-->help appreciated * Vascular Surgery: Dr. Ontiveros-->help appreciated * Surgery consulted and permacath placed * Heme-Oncology: Dr Martinez-->help appreciated * Possible patient has light chain multiple myeloma * free light chain lambda: 852802.7 * free light chain kappa: 17.5 * 24 hr urine UPEP--> 2108 (high) * urine IPE--->--->pending * beta2 microglobulin--->--->pending * LDH: 522 * Prior SPEP: (12/02/16): M Adarsh migrating in the gamma globulin region; 12/25 : M spike * 12/27: discussed with Dr. Martinez, patient's for bone marrow biopsy for Sunday and possible start chemotherapy. * Echocardiogram (12/27/16) moderate left ventricular diastolic dysfunction. left atrium is moderately dilated. right atrium is mildly dilated, mitral annular calcification is moderate. mitral valve is calcified and displays decreased opening. Mild mitral valve stenosis. severe pulmonary hypertension., EF: 60% * Monitor intake output * BUN/Cr elevated today: 90/7.7 * 12/25 Urinanalysis: +leuk esterase, 2+ protein, + Wbc and + RBC * urine culture: no growth (<1000 CFU/ml) * Ct Abdomen/Pelvis (12/25/16): No evidence of nephrolithiasis or hydronephrosis , 1,5 cm exophyitc high attentuation lesion at the mid to lower pole of right kidney. possibility of renal cell carcnioma should be excluded. 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 Airspace consolidation at left lobe associated with small pleural fussion suspicious for pneumonia * Chest xray w rib (12/29/16): stable heterogenous infiltrates are seen diffusely bilaterally and are unchanged compared to 12/28/16 prominent cardiac silhouette is stable. Fractures at the left 3rd, 6th, and 9th ribs identified at latter stage of healing * 12/30: Heme-onc unable to do bone marrow biopsy because of patient's shortness of breathe; reports does not need bone marrow biopsy at this time; recommend for port a cath * 12/31: given possibility of invasive myeloma to the lung; may need bronch/bal for diagnosis * 01/03: patient had Angela Cath placed on Left Chest and had Bone Marrow Biopsy by Dr. Martinez * 01/04: Pathology report on Bone Marrow Bx is pending and patient started on Chemo after HD with next planned 1 week from today Status: Acute (5) Hypercalcemia Assessment and Plan: * Likely secondary to Multiple Myeloma * Nephrology (Dr. Bill) on board-->help appreciated * Heme-onc (Dr. Martinez) on board--->help appreciated * PTH related Protein: pending * PTH intact: 14 * Vitamin D: 66.6 * ОЛЕГ: 28 * Ionized Calcium: 6.7 * Possible patient has light chain multiple myeloma * Recommended for SPEP, IPEP--->pending * free light chain lambda: 059263.7 * free light chain kappa: 17.5 * 24 hr urine UPEP--> 2108 (high) * urine IPE--->--->pending * beta2 microglobulin--->--->pending * LDH: 522 * Prior SPEP: (12/02/16): M Adarsh migrating in the gamma globulin region; 12/25 : M spike Status: Acute (6) Possible CHF exacerbation Assessment and Plan: * History of diastolic congestive heart failure * Cardiology (Dr. Little) on consult; covering for Dr. Lynch's patients * ProBNP today: 64182 * Echocardiogram (12/27/16) moderate left ventricular diastolic dysfunction. left atrium is moderately dilated. right atrium is mildly dilated, mitral annular calcification is moderate. mitral valve is calcified and displays decreased opening. Mild mitral valve stenosis. severe pulmonary hypertension., EF: 60% * monitor intake and output * Patient has acute renal failure unable to start ARB/ОЛЕГ * Patient's blood pressure is normotensive w/o beta-vania * Crestor 5mg POqHS * Used to be on Cardizem prior hospitalization but off * Daily Weights Status: Acute (7) Anemia Assessment and Plan: * Heme-onc (Dr. Martinez) on board-->help appreciated * Discussed with PMD: Dr. Winkler-->patient has had workup including GI workup in 2016 in regards to anemia * Thought to be chronic secondary to kidney disease; anemia of critical disease * Continue home meds Ferrous sulfate 325 mg daily * s/p 1 unit of PRBC on 12/25 7.2 * 12/25 stool occult blood: negative * Prior hospitalizations included in patient's chart; awaiting copy of report of GI workup * 01/01: received 2 units PRBC for Hgb<6 * HgB/Hct stable Status: Chronic (8) Atrial fibrillation Assessment and Plan: * Cardiology (Dr. Little) covering for Dr. Lynch's patients * Continue home meds: Amiodarone 200 mg daily, Cardizem 240 mg daily * Patient is not on anticoagulation secondary to anemia * CHADS: 4 (DM, Age, HTN, CHF) * HASBLED:2 (Age and Renal Disease) * 01/04: had episode of rapid AF after HD. Was given Amiodarone 150 mg over 10 minutes and the rate was controlled but then had to be placed on Amiodarone Drip * 01/05: plan is to discontinue Amiodarone Drip at 6:40 PM as she is rate controlled and start Lopressor 25 mg PO BID Status: Acute (9) HTN (hypertension) Assessment and Plan: * Monitor vital signs * Patient is on dialysis secondary to MARIA EUGENIA secondary to Multiple Myeloma Status: Chronic (10) Leukocytosis Assessment and Plan: * In the ED, order for dose of Zosyn and Vancomycin on 12/25 * Strep, legionella: negative and mycoplasma IgM: negative * Patient recently at the hospital within 90 days-->consideration for possible hospital acquired pneumonia * Patient does not meet sepsis critera (04/19: leukocytosis) * Start Zosyn 2.25 gr IV Q8H (active since 12/25/16) and Doxcycline 100mg IV Q 12hours (active since 12/25/16 through 01/04/17) * Blood Culture (12/25/16): no growth after 5 days X 2 * Urine culture (12/25/16): <1000 * Procalcitonin low * Blood Culture (12/29/16): no growth after 3 days x 2 * Solumedrol 40mg IV Q 8 hours per pulmonary (12/27/16 through 01/04/17) * 01/02: currently on Zozyn 2.25 gm IV Q8H (12/25/16) and Bactrim DS 2 tab PO Q24 H (01/02/17: to cover for PCP) * 01/03: started on Zovirax 400 mg PO 1x/day by Heme/Onc Dr. 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 Assessment and Plan: * Continue home meds: Glipizide 10 mg daily * daily Accuchecks QAC and HS * [id number]: 6.1 * Lantus 10 Units SC HS * Regular Insulin 12 Units AC Meals Status: Chronic (14) Hypothyroidism Status: Chronic * TSH: 4.84 * Levothyroxine 75mcg/day Status: Chronic (15) Hepatitis Assessment and Plan: * RUQ pain will f/u Amylase, lipase which are normal * LFTs are normal Status: Chronic (16) History of back pain Assessment and Plan: * held Magnesium oxide 400 mg BID * Tramadol 25 mg 1 tablet Q6hr for break through pain ordered 01/02 * On Lidoderm patch * likely secondary to lytic lesion likely secondary to Multiple Myeloma Status: Acute (17) Lower extremity pain Assessment and Plan: * Held Magnesium oxide 400 mg BID; Tramadol-Acetaminophen 32.5-325 mg 2 tablets Q6hr Status: Acute (18) Prophylactic measure Assessment and Plan: * DVT: SCDs b/l; heparin 5000 units subq12 * GI: Pepcid 20mg PO daily * Monitor intake and output * Daily Weight * PT/OT eval Status: Acute
[2017-01-07] MEDS: (Novolin R) Insulin Human Regular 100 units/ml vial SC SCH ×4 (08:10→21:54)
[2017-01-07 08:29] LABS: NEUTROPHIL 95 % (50-75); TOTAL CELLS COUNTED 100
[2017-01-07 08:32] LABS: GIANT PLATELETS PRESENT; LARGE PLATELETS PRESENT
[2017-01-07] MEDS: Tmp-Smz 400 mg-80 mg SS Tab PO SCH (10:47)
[2017-01-07] MEDS: Lidocaine 5% Patch TD SCH (10:48)
--- NOTE | 2017-01-07 13:33 | CP.PCM.PN ---
Subjective - Date & Time of Evaluation Date of Evaluation: 01/07/17 Time of Evaluation: 13:15 - Subjective Subjective: Hospitalist Progress Note Patient was seen and examined at 1:15 PM 01/07/17 Please see Assessment and Plans below for details Patient had left chest Port Cath placed on 01/03/17 and had bone marrow biopsy on the same day. She was started on Chemotherapy by Dr. Martinez for treatment of likely Multiple Myeloma on 01/04/17 with next treatment planned for 01/11/17. Bone Marrow Biopsy pathology report is pending. The hope is the chemotherapy will help with her respiratory status. She is currently on HiFlow Oxygen. She had episode of Atrial Fibrillation on 01/04/17 S/P HD. She was placed on Amiodarone Drip which was then discontinued on 01/05/17 evening and started on Lopressor 25 mg PO BID and has been rate controlled. Plan of care was discussed with patient's [id number] who was at bedside 01/07/17 and discussed the possibility of LTAC placement once patient's bone marrow biopsy results are known and chemotherapy plan is in place. Medicine Team will speak with [facility]'s Ashanti or Kathy on 01/08/17 concerning the possibility of LTAC. Upon ROS NO longer with epigastric burning Pain under bilateral breasts SOB/Breathing is better on the HiFlow Oxygen Stated that she has episodes of nausea and therefore not eating as much. However it was noted today that she was eating the meal brought in by her sister -in-law from home with much gusto NO burning with urination but states that she is not urinating a lot Hard bowel movement yesterday and today with small amount of blood (HgB/Hct have been stable and explained to [id number] that patient will likely need colonoscopy as an outpatient as long as HgB/Hct remail stable while in-patient) NO other complaints - Constitutional Appears: In Acute Distress, Chronically Ill - Head Exam Head Exam: NORMAL INSPECTION - Eye Exam Eye Exam: EOMI, Pupils are round, equal, reactive to light/accomodation - ENT Exam ENT Exam: Mucous Membranes Dry - Respiratory Exam Respiratory Exam: Decreased Breath Sounds, Course breath sounds throughout absent: Rales, Rhonchi, Stridor - Cardiovascular Exam Cardiovascular Exam: RRR, +S1, +S2 - GI/Abdominal Exam GI & Abdominal Exam: Soft, Normal Bowel Sounds. absent: Distended, Firm, Guarding, Rigid, Tenderness, Rebound - Extremities Exam Extremities Exam: Normal Capillary Refill. absent: Pedal Edema, Tenderness - Neurological Exam Neurological Exam: Alert, Awake, Oriented x3 - Psychiatric Exam Psychiatric exam: Normal Affect, Normal Mood - Skin Skin Exam: Dry, Intact, Normal Color, Warm, NO evidence of rash inferior to bilateral breasts (examined with Juenro-Ov-Yyi 01/07/17) Assessment and Plan - Assessment and Plan (Free Text) Assessment: (1) Acute Respiratory Distress Assessment and Plan: * Patient has history of COPD per pulmonary * Patient requires max oxygen support per ICU * CT Chest (12/31): interval worsening of nonspecific ground glass opacities in the lungs since the previous exam. Interstitial septal thickening and crazy paving appearance of the lungs. Mild cardiomegaly. Small left pleural effusion. Diffuse lytic bone lesion consistent with multiple myeloma * Solumedrol 40mg IV Q 8 hours was stopped 01/05 * Will need BAL/Bronch to see if patient has invasive myeloma to the lung-->ICU has discussed with patient's pulm 12/31 (2) Fluid Overload Assessment and Plan: * ProBNP : 64179 * Contributing factors: acute on chronic kidney disease and hx of diastolic congestive heart failure * Vascular Surgery: Dr. Ontiveros-->notified by emergency room; for emergent dialysis access * Nephrology: Dr Bill on board-->acute on chronic kidney insufficiency, hypercalcemia; emergent dialysis * Chest Xray (12/25/16): prominent diffuse increased interstital lung markings throughout both lungs suggestive for edema and/or infiltrate * Chest Xray (12/27/16): persistent prominent diffuse increased consolidative changes throughtout both lungs with coarse reticular interstital airspce opacities. More focal confluent airspace consolidative changes in the right right midlung zone and left lung base with small left plueral effusion. Cardiomegaly * Echocardiogram (12/27/16) moderate left ventricular diastolic dysfunction. left atrium is moderately dilated. right atrium is mildly dilated, mitral annular calcification is moderate. mitral velve is calcified and displays decreased opening. Mild mitral valve stenosis. severe pulmonary hypertension., EF: 60% * Monitor intake output * Daily weights * 12/27/16: 2nd dialysis session today--> 2 liters removed * 12/28/16: Spoke with Dr. Bill-->dialysis for tomorrow; pending chest xray read * 12/29/16: stable heterogenous infiltrates are seen diffusely bilaterally and are unchanged compared to 12/28/16 prominent cardiac silhouteete is stable. Fractures at the left 3rd, 6th, and 9th ribs identified at latter stage of healing * 12/30/16: Had dialysis today * 12/31/16: Dialysis not improving lung exam * 01/03/17: Chest X Ray shows mild pulmonary congestion (3) Acute kidney injury superimposed on chronic kidney disease Assessment and Plan: * Nephrology Dr. Bill consulted-->help appreciated * Hepatitis panel: Negative * HIV: negative * Mycoplasma Igm: negative * Legionella; Negative * Vascular Surgery: Dr. 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 * Recommended for SPEP, IPEP--->pending * free light chain lambda: 668511.7 * free light chain kappa: 17.5 * 24 hr urine UPEP-->resulting--> 2108 (high) * urine IPE * beta2 microglobulin * LDH: 522 * Prior SPEP: (12/02/16): M Adarsh migrating in the gamma globulin region; 12/25 : M spike * immuonfixation: pending * BUN/Cr elevated today: 90/7.7 * 12/25 Urinanalysis: +leuk esterase, 2+ protein, + Wbc and + RBC * urine culture: no growth (<1000 CFU/ml) * Ct Abdomen/Pelvis (12/25/16): No evidence of nephrolithiasis or hydronephrosis , 1,5 cm exophyitc high attentuation lesion at the mid to lower pole of right kidney. possibility of renal cell carcinoma should be excluded. 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 Airspace consolidation at left lobe associated with small pleural fussion suspicious for pneumonia * On HD through Right Chest Perma Cath with last HD on 01/06/17 Status: Acute (4) Possible Multiple Myeloma Assessment and Plan: * Criteria: anemia, renal insufficiency, hypercalcemia * Nephrology Dr. Bill consulted-->help appreciated * Vascular Surgery: Dr. Ontiveros-->help appreciated * Surgery consulted and permacath placed * Heme-Oncology: Dr Martinez-->help appreciated * Possible patient has light chain multiple myeloma * free light chain lambda: 138818.7 * free light chain kappa: 17.5 * 24 hr urine UPEP--> 2108 (high) * urine IPE--->--->pending * beta2 microglobulin--->--->pending * LDH: 522 * Prior SPEP: (12/02/16): M Adarsh migrating in the gamma globulin region; 12/25 : M spike * 12/27: discussed with Dr. Martinez, patient's for bone marrow biopsy for Sunday and possible start chemotherapy. * Echocardiogram (12/27/16) moderate left ventricular diastolic dysfunction. left atrium is moderately dilated. right atrium is mildly dilated, mitral annular calcification is moderate. mitral valve is calcified and displays decreased opening. Mild mitral valve stenosis. severe pulmonary hypertension., EF: 60% * Monitor intake output * BUN/Cr elevated today: 90/7.7 * 12/25 Urinanalysis: +leuk esterase, 2+ protein, + Wbc and + RBC * urine culture: no growth (<1000 CFU/ml) * Ct Abdomen/Pelvis (12/25/16): No evidence of nephrolithiasis or hydronephrosis , 1,5 cm exophyitc high attentuation lesion at the mid to lower pole of right kidney. possibility of renal cell carcnioma should be excluded. 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 Airspace consolidation at left lobe associated with small pleural fussion suspicious for pneumonia * Chest xray w rib (12/29/16): stable heterogenous infiltrates are seen diffusely bilaterally and are unchanged compared to 12/28/16 prominent cardiac silhouette is stable. Fractures at the left 3rd, 6th, and 9th ribs identified at latter stage of healing * 12/30: Heme-onc unable to do bone marrow biopsy because of patient's shortness of breathe; reports does not need bone marrow biopsy at this time; recommend for port a cath * 12/31: given possibility of invasive myeloma to the lung; may need bronch/bal for diagnosis * 01/03: patient had Angela Cath placed on Left Chest and had Bone Marrow Biopsy by Dr. Martinez * 01/04: Pathology report on Bone Marrow Bx is pending and patient started on Chemo after HD with next planned 1 week from today Status: Acute (5) Hypercalcemia Assessment and Plan: * Likely secondary to Multiple Myeloma * Nephrology (Dr. Bill) on board-->help appreciated * Heme-onc (Dr. Martinez) on board--->help appreciated * PTH related Protein: 51 * PTH intact: 14 * Vitamin D: 66.6 * ОЛЕГ: 28 * Ionized Calcium: 6.7 * Possible patient has light chain multiple myeloma * Recommended for SPEP, IPEP--->pending * free light chain lambda: 027416.7 * free light chain kappa: 17.5 * 24 hr urine UPEP--> 2108 (high) * urine IPE--->--->pending * beta2 microglobulin--->--->pending * LDH: 522 * Prior SPEP: (12/02/16): M Adarsh migrating in the gamma globulin region; 12/25 : M spike Status: Acute (6) Possible CHF exacerbation Assessment and Plan: * History of diastolic congestive heart failure * Cardiology (Dr. Little) on consult; covering for Dr. Lynch's patients * ProBNP today: 23138 * Echocardiogram (12/27/16) moderate left ventricular diastolic dysfunction. left atrium is moderately dilated. right atrium is mildly dilated, mitral annular calcification is moderate. mitral valve is calcified and displays decreased opening. Mild mitral valve stenosis. severe pulmonary hypertension., EF: 60% * monitor intake and output * Patient has acute renal failure unable to start ARB/ОЛЕГ * Patient's blood pressure is normotensive w/o beta-vania * Crestor 5mg POqHS * Used to be on Cardizem prior hospitalization but off * Daily Weights Status: Acute (7) Anemia Assessment and Plan: * Heme-onc (Dr. Martinez) on board-->help appreciated * Discussed with PMD: Dr. Winkler-->patient has had workup including GI workup in 2017 in regards to anemia * Thought to be chronic secondary to kidney disease; anemia of critical disease * Continue home meds Ferrous sulfate 325 mg daily * s/p 1 unit of PRBC on 12/25 7.2 * 12/25 stool occult blood: negative * Prior hospitalizations included in patient's chart; awaiting copy of report of GI workup * 01/01: received 2 units PRBC for Hgb<6 * HgB/Hct stable Status: Chronic (8) Atrial fibrillation Assessment and Plan: * Cardiology (Dr. Little) covering for Dr. Lynch's patients * Continue home meds: Amiodarone 200 mg daily, Cardizem 240 mg daily * Patient is not on anticoagulation secondary to anemia * CHADS: 4 (DM, Age, HTN, CHF) * HASBLED:2 (Age and Renal Disease) * 01/04: had episode of rapid AF after HD. Was given Amiodarone 150 mg over 10 minutes and the rate was controlled but then had to be placed on Amiodarone Drip * 01/05: Discontinued Amiodarone Drip at 6:40 PM as she is rate controlled and started Lopressor 25 mg PO BID * 01/06: Better rate controlled Status: Acute (9) HTN (hypertension) Assessment and Plan: * Monitor vital signs * Patient is on dialysis secondary to MARIA EUGENIA secondary to Multiple Myeloma Status: Chronic (10) Leukocytosis Assessment and Plan: * In the ED, order for dose of Zosyn and Vancomycin on 12/25 * Strep, legionella: negative and mycoplasma IgM: negative * Patient recently at the hospital within 90 days-->consideration for possible hospital acquired pneumonia * Patient does not meet sepsis critera (04/19: leukocytosis) * Start Zosyn 2.25 gr IV Q8H (active since 12/25/16) and Doxcycline 100mg IV Q 12hours (active since 12/25/16 through 01/04/17) * Blood Culture (12/25/16): no growth after 5 days X 2 * Urine culture (12/25/16): <1000 * Procalcitonin low * Blood Culture (12/29/16): no growth after 3 days x 2 * Solumedrol 40mg IV Q 8 hours per pulmonary (12/27/16 through 01/04/17) * 01/02: currently on Zozyn 2.25 gm IV Q8H (12/25/16) and Bactrim DS 2 tab PO Q24 H (01/02/17: to cover for PCP) * 01/03: started on Zovirax 400 mg PO 1x/day by Heme/Onc Dr. 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 Assessment and Plan: * Continue home meds: Glipizide 10 mg daily * daily Accuchecks QAC and HS * Bittpjiclag1z: 6.1 * Lantus 10 Units SC HS * Regular Insulin 12 Units AC Meals Status: Chronic (14) Hypothyroidism Status: Chronic * TSH: 4.84 * Levothyroxine 75mcg/day Status: Chronic (15) Hepatitis Assessment and Plan: * RUQ pain will f/u Amylase, lipase which are normal * LFTs are normal Status: Chronic (16) History of back pain Assessment and Plan: * held Magnesium oxide 400 mg BID * Tramadol 25 mg 1 tablet Q6hr for break through pain ordered 01/02 * On Lidoderm patch * likely secondary to lytic lesion likely secondary to Multiple Myeloma Status: Acute (17) Lower extremity pain Assessment and Plan: * Held Magnesium oxide 400 mg BID; Tramadol-Acetaminophen 32.5-325 mg 2 tablets Q6hr Status: Acute (18) Prophylactic measure Assessment and Plan: * DVT: SCDs b/l; heparin 5000 units subq12 * GI: Pepcid 20mg PO was increased to 20 mg PO BID (01/06/17) * Monitor intake and output * Daily Weight * PT/OT eval Status: Acute Objective - Vital Signs/Intake and Output Vital Signs (last 24 hours): Temp Pulse Resp BP Pulse Ox 98.6 F 92 H 17 109/41 L 96 01/07/17 08:00 01/07/17 11:30 01/07/17 11:45 01/07/17 11:30 01/07/17 11:30 Intake and Output: 01/07/17 01/07/17 06:59 18:59 Intake Total 150 50 Balance 150 50 - Medications Medications: Current Medications Acyclovir (Zovirax) 400 mg PO DAILY [facility] Last Admin: 01/07/17 10:47 Dose: 400 mg Albuterol/Ipratropium (Duoneb 3 Mg/0.5 Mg (3 Ml) Ud) 3 ml INH RQ6 [facility] Last Admin: 01/07/17 08:00 Dose: 3 ml Docusate Sodium (Colace) 100 mg PO TID [facility] Last Admin: 01/07/17 10:47 Dose: 100 mg Famotidine (Pepcid) 20 mg PO DAILY [facility] Last Admin: 01/07/17 10:47 Dose: 20 mg Ferrous Sulfate (Feosol) 325 mg PO DAILY [facility] Last Admin: 01/07/17 10:47 Dose: 325 mg Glipizide (Glucotrol) 10 mg PO DAILY [facility] Last Admin: 01/07/17 10:47 Dose: 10 mg Heparin Sodium (Porcine) (Heparin) 5,000 units SC Q12 [facility] Last Admin: 01/07/17 10:46 Dose: 5,000 units Piperacillin Sod/Tazobactam Sod (Zosyn 2.25 Gm Iv Premix) 2.25 gm in 50 mls @ 100 mls/hr IVPB Q8H [facility] Last Admin: 01/07/17 06:28 Dose: 100 mls/hr Insulin Glargine (Lantus) 10 unit SC [facility] Last Admin: 01/06/17 21:13 Dose: 10 units Insulin Human Regular (Novolin R) 0 unit SC ACHS [facility] PRN Reason: Protocol Last Admin: 01/07/17 11:26 Dose: 10 unit Levothyroxine Sodium (Synthroid) 75 mcg PO DAILY@0630 [facility] Last Admin: 01/07/17 05:34 Dose: 75 mcg Lidocaine (Lidoderm) 1 ea TD DAILY [facility] Last Admin: 01/07/17 10:48 Dose: Not Given Metoprolol Tartrate (Lopressor) 25 mg PO BID [facility] Last Admin: 01/07/17 10:47 Dose: Not Given Ondansetron HCl (Zofran Inj) 4 mg IVP Q6H PRN PRN Reason: Nausea/Vomiting Last Admin: 01/06/17 13:30 Dose: 4 mg Rosuvastatin Calcium (Crestor) 5 mg PO HS [facility] Last Admin: 01/06/17 21:13 Dose: 5 mg Sevelamer Carbonate (Renvela) 1,600 mg PO TIDCC [facility] Last Admin: 01/07/17 11:27 Dose: 1,600 mg Sodium Chloride (Sodium Chloride Tab) 1 gm PO TID [facility] Last Admin: 01/07/17 10:48 Dose: 1 gm Tramadol HCl (Ultram) 25 mg PO Q6H PRN PRN Reason: Pain, severe (8-10) Last Admin: 01/06/17 21:13 Dose: 25 mg Trimethoprim/Sulfamethoxazole (Bactrim Ss Tab) 1 tab PO DAILY [facility] Last Admin: 01/07/17 10:47 Dose: 1 tab - Labs Labs: 01/07/17 06:26 01/07/17 06:26 PT 13.1 SECONDS (9.7-12.2) H 12/26/16 08:05 INR 1.2 12/26/16 08:05 APTT 27 SECONDS (21-34) 01/01/17 06:00
--- NOTE | 2017-01-07 21:32 | CP.PCM.PN ---
Subjective - Date & Time of Evaluation Date of Evaluation: 01/07/17 Time of Evaluation: 09:05 - Subjective Subjective: Patient seen and evaluated Denies chest pain Less short of breath Physical Examination - Eye Exam Eye Exam: EOMI, Normal appearance - ENT Exam ENT Exam: Mucous Membranes Moist - Respiratory Exam Respiratory Exam: Decreased Breath Sounds, NORMAL BREATHING PATTERN - Cardiovascular Exam Cardiovascular Exam: RRR, +S1, +S2 - GI/Abdominal Exam GI & Abdominal Exam: Soft, Normal Bowel Sounds - Extremities Exam Extremities Exam: Normal Capillary Refill - Neurological Exam Neurological Exam: Alert, Awake, Oriented x3 - Psychiatric Exam Psychiatric exam: Normal Affect, Normal Mood - Skin Skin Exam: Normal Color, Warm Objective - Vital Signs/Intake and Output Vital Signs (last 24 hours): Temp Pulse Resp BP Pulse Ox 98.7 F 84 18 102/61 96 01/07/17 16:00 01/07/17 16:00 01/07/17 16:00 01/07/17 17:33 01/07/17 16:00 Intake and Output: 01/07/17 01/08/17 18:59 06:59 Intake Total 170 Balance 170 - Medications Medications: Current Medications Acyclovir (Zovirax) 400 mg PO DAILY [facility] Last Admin: 01/07/17 10:47 Dose: 400 mg Albuterol/Ipratropium (Duoneb 3 Mg/0.5 Mg (3 Ml) Ud) 3 ml INH RQ6 [facility] Last Admin: 01/07/17 19:37 Dose: 3 ml Docusate Sodium (Colace) 100 mg PO TID [facility] Last Admin: 01/07/17 17:30 Dose: 100 mg Famotidine (Pepcid) 20 mg PO DAILY [facility] Last Admin: 01/07/17 10:47 Dose: 20 mg Ferrous Sulfate (Feosol) 325 mg PO DAILY [facility] Last Admin: 01/07/17 10:47 Dose: 325 mg Glipizide (Glucotrol) 10 mg PO DAILY [facility] Last Admin: 01/07/17 10:47 Dose: 10 mg Heparin Sodium (Porcine) (Heparin) 5,000 units SC Q12 [facility] Last Admin: 01/07/17 10:46 Dose: 5,000 units Piperacillin Sod/Tazobactam Sod (Zosyn 2.25 Gm Iv Premix) 2.25 gm in 50 mls @ 100 mls/hr IVPB Q8H [facility] Last Admin: 01/07/17 15:16 Dose: 100 mls/hr Insulin Glargine (Lantus) 10 unit SC HS [facility] Last Admin: 01/06/17 21:13 Dose: 10 units Insulin Human Regular (Novolin R) 0 unit SC ACHS [facility] PRN Reason: Protocol Last Admin: 01/07/17 17:30 Dose: 2 unit Levothyroxine Sodium (Synthroid) 75 mcg PO DAILY@0630 [facility] Last Admin: 01/07/17 05:34 Dose: 75 mcg Lidocaine (Lidoderm) 1 ea TD DAILY [facility] Last Admin: 01/07/17 10:48 Dose: Not Given Metoprolol Tartrate (Lopressor) 25 mg PO BID [facility] Last Admin: 01/07/17 17:33 Dose: Not Given Ondansetron HCl (Zofran Inj) 4 mg IVP Q6H PRN PRN Reason: Nausea/Vomiting Last Admin: 01/06/17 13:30 Dose: 4 mg Rosuvastatin Calcium (Crestor) 5 mg PO HS [facility] Last Admin: 01/06/17 21:13 Dose: 5 mg Sevelamer Carbonate (Renvela) 1,600 mg PO TIDCC [facility] Last Admin: 01/07/17 17:30 Dose: 1,600 mg Sodium Chloride (Sodium Chloride Tab) 1 gm PO TID [facility] Last Admin: 01/07/17 17:34 Dose: 1 gm Tramadol HCl (Ultram) 25 mg PO Q6H PRN PRN Reason: Pain, severe (8-10) Last Admin: 01/06/17 21:13 Dose: 25 mg Trimethoprim/Sulfamethoxazole (Bactrim Ss Tab) 1 tab PO DAILY [facility] Last Admin: 01/07/17 10:47 Dose: 1 tab - Labs Labs: 01/07/17 06:26 01/07/17 06:26 PT 13.1 SECONDS (9.7-12.2) H 12/26/16 08:05 INR 1.2 12/26/16 08:05 APTT 27 SECONDS (21-34) 01/01/17 06:00 Assessment and Plan - Assessment and Plan (Free Text) Assessment: (1) Acute Respiratory Distress Assessment and Plan: * Patient has history of COPD per pulmonary * Patient requires max oxygen support per ICU * CT Chest (12/31): interval worsening of nonspecific ground glass opacities in the lungs since the previous exam. Interstitial septal thickening and crazy paving appearance of the lungs. Mild cardiomegaly. Small left pleural effusion. Diffuse lytic bone lesion consistent with multiple myeloma * Solumedrol 40mg IV Q 8 hours was stopped 01/05 * Will need BAL/Bronch to see if patient has invasive myeloma to the lung-->ICU has discussed with patient's pulm 12/31 (2) Fluid Overload Assessment and Plan: * ProBNP : 04859 * Contributing factors: acute on chronic kidney disease and hx of diastolic congestive heart failure * Vascular Surgery: Dr. Ontiveros-->notified by emergency room; for emergent dialysis access * Nephrology: Dr Bill on board-->acute on chronic kidney insufficiency, hypercalcemia; emergent dialysis * Chest Xray (12/25/16): prominent diffuse increased interstital lung markings throughout both lungs suggestive for edema and/or infiltrate * Chest Xray (12/27/16): persistent prominent diffuse increased consolidative changes throughtout both lungs with coarse reticular interstital airspce opacities. More focal confluent airspace consolidative changes in the right right midlung zone and left lung base with small left plueral effusion. Cardiomegaly * Echocardiogram (12/27/16) moderate left ventricular diastolic dysfunction. left atrium is moderately dilated. right atrium is mildly dilated, mitral annular calcification is moderate. mitral velve is calcified and displays decreased opening. Mild mitral valve stenosis. severe pulmonary hypertension., EF: 60% * Monitor intake output * Daily weights * 12/27/16: 2nd dialysis session today--> 2 liters removed * 12/28/16: Spoke with Dr. Bill-->dialysis for tomorrow; pending chest xray read * 12/29/16: stable heterogenous infiltrates are seen diffusely bilaterally and are unchanged compared to 12/28/16 prominent cardiac silhouteete is stable. Fractures at the left 3rd, 6th, and 9th ribs identified at latter stage of healing * 12/30/16: Had dialysis today * 12/31/16: Dialysis not improving lung exam * 01/03/17: Chest X Ray shows mild pulmonary congestion (3) Acute kidney injury superimposed on chronic kidney disease Assessment and Plan: * Nephrology Dr. Bill consulted-->help appreciated * Hepatitis panel: Negative * HIV: negative * Mycoplasma Igm: negative * Legionella; Negative * Vascular Surgery: Dr. 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 * Recommended for SPEP, IPEP--->pending * free light chain lambda: 609444.7 * free light chain kappa: 17.5 * 24 hr urine UPEP-->resulting--> 2108 (high) * urine IPE * beta2 microglobulin * LDH: 522 * Prior SPEP: (12/02/16): M Adarsh migrating in the gamma globulin region; 12/25 : M spike * immuonfixation: pending * BUN/Cr elevated today: 90/7.7 * 12/25 Urinanalysis: +leuk esterase, 2+ protein, + Wbc and + RBC * urine culture: no growth (<1000 CFU/ml) * Ct Abdomen/Pelvis (12/25/16): No evidence of nephrolithiasis or hydronephrosis , 1,5 cm exophyitc high attentuation lesion at the mid to lower pole of right kidney. possibility of renal cell carcinoma should be excluded. 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 Airspace consolidation at left lobe associated with small pleural fussion suspicious for pneumonia * HD through 01/04/17 Status: Acute (4) Possible Multiple Myeloma Assessment and Plan: * Criteria: anemia, renal insufficiency, hypercalcemia * Nephrology Dr. Bill consulted-->help appreciated * Vascular Surgery: Dr. Ontiveros-->help appreciated * Surgery consulted and permacath placed * Heme-Oncology: Dr Martinez-->help appreciated * Possible patient has light chain multiple myeloma * free light chain lambda: 734116.7 * free light chain kappa: 17.5 * 24 hr urine UPEP--> 2108 (high) * urine IPE--->--->pending * beta2 microglobulin--->--->pending * LDH: 522 * Prior SPEP: (12/02/16): M Adarsh migrating in the gamma globulin region; 12/25 : M spike * 12/27: discussed with Dr. Martinez, patient's for bone marrow biopsy for Sunday and possible start chemotherapy. * Echocardiogram (12/27/16) moderate left ventricular diastolic dysfunction. left atrium is moderately dilated. right atrium is mildly dilated, mitral annular calcification is moderate. mitral valve is calcified and displays decreased opening. Mild mitral valve stenosis. severe pulmonary hypertension., EF: 60% * Monitor intake output * BUN/Cr elevated today: 90/7.7 * 12/25 Urinanalysis: +leuk esterase, 2+ protein, + Wbc and + RBC * urine culture: no growth (<1000 CFU/ml) * Ct Abdomen/Pelvis (12/25/16): No evidence of nephrolithiasis or hydronephrosis , 1,5 cm exophyitc high attentuation lesion at the mid to lower pole of right kidney. possibility of renal cell carcnioma should be excluded. 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 Airspace consolidation at left lobe associated with small pleural fussion suspicious for pneumonia * Chest xray w rib (12/29/16): stable heterogenous infiltrates are seen diffusely bilaterally and are unchanged compared to 12/28/16 prominent cardiac silhouette is stable. Fractures at the left 3rd, 6th, and 9th ribs identified at latter stage of healing * 12/30: Heme-onc unable to do bone marrow biopsy because of patient's shortness of breathe; reports does not need bone marrow biopsy at this time; recommend for port a cath * 12/31: given possibility of invasive myeloma to the lung; may need bronch/bal for diagnosis * 01/03: patient had Angela Cath placed on Left Chest and had Bone Marrow Biopsy by Dr. Martinez * 01/04: Pathology report on Bone Marrow Bx is pending and patient started on Chemo after HD with next planned 1 week from today Status: Acute (5) Hypercalcemia Assessment and Plan: * Likely secondary to Multiple Myeloma * Nephrology (Dr. Bill) on board-->help appreciated * Heme-onc (Dr. Martinez) on board--->help appreciated * PTH related Protein: pending * PTH intact: 14 * Vitamin D: 66.6 * ОЛЕГ: 28 * Ionized Calcium: 6.7 * Possible patient has light chain multiple myeloma * Recommended for SPEP, IPEP--->pending * free light chain lambda: 863185.7 * free light chain kappa: 17.5 * 24 hr urine UPEP--> 2108 (high) * urine IPE--->--->pending * beta2 microglobulin--->--->pending * LDH: 522 * Prior SPEP: (12/02/16): M Adarsh migrating in the gamma globulin region; 12/25 : M spike Status: Acute (6) Possible CHF exacerbation Assessment and Plan: * History of diastolic congestive heart failure * Cardiology (Dr. Little) on consult; covering for Dr. Lynch's patients * ProBNP today: 48232 * Echocardiogram (12/27/16) moderate left ventricular diastolic dysfunction. left atrium is moderately dilated. right atrium is mildly dilated, mitral annular calcification is moderate. mitral valve is calcified and displays decreased opening. Mild mitral valve stenosis. severe pulmonary hypertension., EF: 60% * monitor intake and output * Patient has acute renal failure unable to start ARB/ОЛЕГ * Patient's blood pressure is normotensive w/o beta-vania * Crestor 5mg POqHS * Used to be on Cardizem prior hospitalization but off * Daily Weights Status: Acute (7) Anemia Assessment and Plan: * Heme-onc (Dr. Martinez) on board-->help appreciated * Discussed with PMD: Dr. Winkler-->patient has had workup including GI workup in 2016 in regards to anemia * Thought to be chronic secondary to kidney disease; anemia of critical disease * Continue home meds Ferrous sulfate 325 mg daily * s/p 1 unit of PRBC on 12/25 7.2 * 12/25 stool occult blood: negative * Prior hospitalizations included in patient's chart; awaiting copy of report of GI workup * 01/01: received 2 units PRBC for Hgb<6 * HgB/Hct stable Status: Chronic (8) Atrial fibrillation Assessment and Plan: * Cardiology (Dr. Little) covering for Dr. Lynch's patients * Continue home meds: Amiodarone 200 mg daily, Cardizem 240 mg daily * Patient is not on anticoagulation secondary to anemia * CHADS: 4 (DM, Age, HTN, CHF) * HASBLED:2 (Age and Renal Disease) * 01/04: had episode of rapid AF after HD. Was given Amiodarone 150 mg over 10 minutes and the rate was controlled but then had to be placed on Amiodarone Drip * 01/05: plan is to discontinue Amiodarone Drip at 6:40 PM as she is rate controlled and start Lopressor 25 mg PO BID Status: Acute (9) HTN (hypertension) Assessment and Plan: * Monitor vital signs * Patient is on dialysis secondary to MARIA EUGENIA secondary to Multiple Myeloma Status: Chronic (10) Leukocytosis Assessment and Plan: * In the ED, order for dose of Zosyn and Vancomycin on 12/25 * Strep, legionella: negative and mycoplasma IgM: negative * Patient recently at the hospital within 90 days-->consideration for possible hospital acquired pneumonia * Patient does not meet sepsis critera (04/19: leukocytosis) * Start Zosyn 2.25 gr IV Q8H (active since 12/25/16) and Doxcycline 100mg IV Q 12hours (active since 12/25/16 through 01/04/17) * Blood Culture (12/25/16): no growth after 5 days X 2 * Urine culture (12/25/16): <1000 * Procalcitonin low * Blood Culture (12/29/16): no growth after 3 days x 2 * Solumedrol 40mg IV Q 8 hours per pulmonary (12/27/16 through 01/04/17) * 01/02: currently on Zozyn 2.25 gm IV Q8H (12/25/16) and Bactrim DS 2 tab PO Q24 H (01/02/17: to cover for PCP) * 01/03: started on Zovirax 400 mg PO 1x/day by Heme/Onc Dr. 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 Assessment and Plan: * Continue home meds: Glipizide 10 mg daily * daily Accuchecks QAC and HS * [id number]: 6.1 * Lantus 10 Units SC HS * Regular Insulin 12 Units AC Meals Status: Chronic (14) Hypothyroidism Status: Chronic * TSH: 4.84 * Levothyroxine 75mcg/day Status: Chronic (15) Hepatitis Assessment and Plan: * RUQ pain will f/u Amylase, lipase which are normal * LFTs are normal Status: Chronic (16) History of back pain Assessment and Plan: * held Magnesium oxide 400 mg BID * Tramadol 25 mg 1 tablet Q6hr for break through pain ordered 01/02 * On Lidoderm patch * likely secondary to lytic lesion likely secondary to Multiple Myeloma Status: Acute (17) Lower extremity pain Assessment and Plan: * Held Magnesium oxide 400 mg BID; Tramadol-Acetaminophen 32.5-325 mg 2 tablets Q6hr Status: Acute (18) Prophylactic measure Assessment and Plan: * DVT: SCDs b/l; heparin 5000 units subq12 * GI: Pepcid 20mg PO daily * Monitor intake and output * Daily Weight * PT/OT eval Status: Acute
[2017-01-07] MEDS: (Lantus) Insulin Glargine, Recombinant SC SCH (21:55)
[2017-01-07] MEDS: Tramadol 25 mg PO PRN (22:03)
[2017-01-08] MEDS: Albuterol-Ipratrop 3 mg / 0.5 (3 ml) UD INH SCH ×4 (02:04→20:42)
[2017-01-08] MEDS: Levothyroxine 75 MCG TAB PO SCH (06:07)
[2017-01-08] MEDS: Piperacill/Tazo 2.25gm in Dex 2.25 GM/50 ML BAG IVPB SCH (06:07)
[2017-01-08 06:38] LABS: EOS % 0.1 % (0.0-4.0); HEMATOCRIT 25.9 % (34.0-47.0); LYMPH # 0.4 K/uL (1.0-4.3); LYMPH % 2.9 % (20.0-40.0); MEAN CORPUSCULAR HEMOGLOBIN 30.3 pg (27.0-31.0); MEAN CORPUSCULAR HGB CONC 33.3 g/dL (33.0-37.0); MEAN PLATELET VOLUME 10.3 fL (7.2-11.7); MONO # 0.4 K/uL (0.0-0.8); MONO % 2.5 % (0.0-10.0); PLATELET COUNT 62 K/uL (130-400); RED CELL DISTRIBUTION WIDTH 15.9 % (11.5-14.5); WHITE BLOOD COUNT 14.6 K/uL (4.8-10.8)
[2017-01-08 06:58] LABS: ALB/GLOB RATIO 1.3 (1.0-2.1); BILIRUBIN,TOTAL 0.4 mg/dL (0.2-1.3); CALCIUM 6.1 mg/dl (8.6-10.4); POTASSIUM 4.4 mmol/L (3.6-5.2); TOTAL PROTEIN 4.6 g/dL (6.3-8.3)
[2017-01-08 08:11] LABS: NEUTROPHIL 94 % (50-75); TOTAL CELLS COUNTED 100
[2017-01-08] MEDS: (Novolin R) Insulin Human Regular 100 units/ml vial SC SCH ×4 (08:32→22:18)
[2017-01-08 10:49] LABS: MAGNESIUM 1.9 mg/dL (1.6-2.3); PHOSPHOROUS 4.7 mg/dL (2.5-4.5)
[2017-01-08] MEDS: Tmp-Smz 400 mg-80 mg SS Tab PO SCH (11:37)
[2017-01-08] MEDS: Lidocaine 5% Patch TD SCH (11:39)
--- NOTE | 2017-01-08 12:01 | CP.PCM.PN ---
Subjective - Date & Time of Evaluation Date of Evaluation: 01/08/17 Time of Evaluation: 11:57 - Subjective Subjective: seen and examined c/o constipation denies any nausea vomiting sob chest pain headache fevers chills Objective - Vital Signs/Intake and Output Vital Signs (last 24 hours): Temp Pulse Resp BP Pulse Ox 97.5 F L 79 18 104/52 L 96 01/08/17 00:00 01/08/17 00:00 01/08/17 08:48 01/08/17 11:37 01/08/17 00:00 - Medications Medications: Current Medications Acyclovir (Zovirax) 400 mg PO DAILY [facility] Last Admin: 01/08/17 11:37 Dose: 400 mg Albuterol/Ipratropium (Duoneb 3 Mg/0.5 Mg (3 Ml) Ud) 3 ml INH RQ6 [facility] Last Admin: 01/08/17 08:46 Dose: 3 ml Docusate Sodium (Colace) 100 mg PO TID [facility] Last Admin: 01/08/17 11:36 Dose: 100 mg Famotidine (Pepcid) 20 mg PO DAILY [facility] Last Admin: 01/08/17 11:37 Dose: 20 mg Ferrous Sulfate (Feosol) 325 mg PO DAILY [facility] Last Admin: 01/08/17 11:38 Dose: 325 mg Glipizide (Glucotrol) 10 mg PO DAILY [facility] Last Admin: 01/08/17 11:38 Dose: 10 mg Insulin Glargine (Lantus) 10 unit SC HS [facility] Last Admin: 01/07/17 21:55 Dose: Not Given Insulin Human Regular (Novolin R) 0 unit SC ACHS [facility] PRN Reason: Protocol Last Admin: 01/08/17 08:32 Dose: Not Given Levothyroxine Sodium (Synthroid) 75 mcg PO DAILY@0630 [facility] Last Admin: 01/08/17 06:07 Dose: 75 mcg Lidocaine (Lidoderm) 1 ea TD DAILY [facility] Last Admin: 01/08/17 11:39 Dose: Not Given Metoprolol Tartrate (Lopressor) 25 mg PO BID [facility] Last Admin: 01/08/17 11:37 Dose: 25 mg Ondansetron HCl (Zofran Inj) 4 mg IVP Q6H PRN PRN Reason: Nausea/Vomiting Last Admin: 01/06/17 13:30 Dose: 4 mg Rosuvastatin Calcium (Crestor) 5 mg PO HS [facility] Last Admin: 01/07/17 21:53 Dose: 5 mg Sevelamer Carbonate (Renvela) 1,600 mg PO TIDCC [facility] Last Admin: 01/08/17 09:38 Dose: Not Given Tramadol HCl (Ultram) 25 mg PO Q6H PRN PRN Reason: Pain, severe (8-10) Last Admin: 01/07/17 22:03 Dose: 25 mg Trimethoprim/Sulfamethoxazole (Bactrim Ss Tab) 1 tab PO DAILY [facility] Last Admin: 01/08/17 11:37 Dose: 1 tab - Labs Labs: 01/08/17 06:24 01/08/17 06:24 PT 13.1 SECONDS (9.7-12.2) H 12/26/16 08:05 INR 1.2 12/26/16 08:05 APTT 27 SECONDS (21-34) 01/01/17 06:00 - Constitutional Appears: Non-toxic, No Acute Distress, Chronically Ill - Head Exam Head Exam: NORMAL INSPECTION - Eye Exam Eye Exam: Normal appearance - ENT Exam ENT Exam: Mucous Membranes Moist, Normal Exam - Neck Exam Neck Exam: Normal Inspection - Respiratory Exam Respiratory Exam: Decreased Breath Sounds, NORMAL BREATHING PATTERN - Cardiovascular Exam Cardiovascular Exam: REGULAR RHYTHM, RRR - GI/Abdominal Exam GI & Abdominal Exam: Distended, Soft, Diminished Bowel Sounds - Back Exam Back Exam: NORMAL INSPECTION (rt chest permcath) Assessment and Plan (1) Anemia Status: Acute (2) Hypercalcemia Status: Acute (3) Renal failure Status: Acute (4) Acute kidney injury superimposed on chronic kidney disease Status: Acute (5) Atrial fibrillation with controlled ventricular response Status: Acute - Assessment and Plan (Free Text) Assessment: maintain hd tts add docusate for constipation dc sodium chloride tabs
--- NOTE | 2017-01-08 14:18 | CP.PCM.PN ---
<MooEse españa - Last Filed: 01/08/17 13:59> Subjective - Date & Time of Evaluation Date of Evaluation: 01/08/17 Time of Evaluation: 10:00 - Subjective Subjective: Medicine Note for Dr. Junior Patient was seen and examined at bedside. Patient reports her breathing is unchanged, better with the HiFlow Oxygen. She had a large bowel movement this morning. Patient reports Denied fever,chills, headache, chest pain, SOB, abdominal pain, n/v/d/c, or urinary symptoms. Objective - Vital Signs/Intake and Output Vital Signs (last 24 hours): Temp Pulse Resp BP Pulse Ox 98 F 78 21 104/52 L 97 01/08/17 10:00 01/08/17 10:00 01/08/17 10:00 01/08/17 12:09 01/08/17 10:00 - Medications Medications: Current Medications Acyclovir (Zovirax) 400 mg PO DAILY [facility] Last Admin: 01/08/17 11:37 Dose: 400 mg Albuterol/Ipratropium (Duoneb 3 Mg/0.5 Mg (3 Ml) Ud) 3 ml INH RQ6 [facility] Last Admin: 01/08/17 08:46 Dose: 3 ml Docusate Sodium (Colace) 100 mg PO TID [facility] Last Admin: 01/08/17 11:36 Dose: 100 mg Ferrous Sulfate (Feosol) 325 mg PO DAILY [facility] Last Admin: 01/08/17 11:38 Dose: 325 mg Glipizide (Glucotrol) 10 mg PO DAILY [facility] Last Admin: 01/08/17 11:38 Dose: 10 mg Insulin Glargine (Lantus) 10 unit SC HS [facility] Last Admin: 01/07/17 21:55 Dose: Not Given Insulin Human Regular (Novolin R) 0 unit SC ACHS [facility] PRN Reason: Protocol Last Admin: 01/08/17 12:20 Dose: 4 unit Levothyroxine Sodium (Synthroid) 75 mcg PO DAILY@0630 [facility] Last Admin: 01/08/17 06:07 Dose: 75 mcg Lidocaine (Lidoderm) 1 ea TD DAILY [facility] Last Admin: 01/08/17 11:39 Dose: Not Given Metoprolol Tartrate (Lopressor) 25 mg PO BID [facility] Last Admin: 01/08/17 11:37 Dose: 25 mg Ondansetron HCl (Zofran Inj) 4 mg IVP Q6H PRN PRN Reason: Nausea/Vomiting Last Admin: 01/06/17 13:30 Dose: 4 mg Rosuvastatin Calcium (Crestor) 5 mg PO HS [facility] Last Admin: 01/07/17 21:53 Dose: 5 mg Senna/Docusate Sodium (Senokot S 50 Mg-8.6 Mg) 1 tab PO DAILY [facility] Sevelamer Carbonate (Renvela) 1,600 mg PO TIDCC [facility] Last Admin: 01/08/17 12:26 Dose: 1,600 mg Tramadol HCl (Ultram) 25 mg PO Q6H PRN PRN Reason: Pain, severe (8-10) Last Admin: 01/07/17 22:03 Dose: 25 mg Trimethoprim/Sulfamethoxazole (Bactrim Ss Tab) 1 tab PO DAILY [facility] Last Admin: 01/08/17 11:37 Dose: 1 tab - Labs Labs: 01/08/17 06:24 01/08/17 06:24 PT 13.1 SECONDS (9.7-12.2) H 12/26/16 08:05 INR 1.2 12/26/16 08:05 APTT 27 SECONDS (21-34) 01/01/17 06:00 - Constitutional Appears: No Acute Distress - Head Exam Head Exam: NORMAL INSPECTION, NORMOCEPHALIC - Eye Exam Eye Exam: EOMI, Normal appearance, PERRL - ENT Exam ENT Exam: Mucous Membranes Moist - Respiratory Exam Respiratory Exam: Clear to Ausculation Bilateral, NORMAL BREATHING PATTERN. absent: Decreased Breath Sounds, Wheezes - Cardiovascular Exam Cardiovascular Exam: REGULAR RHYTHM, RRR, +S1, +S2 - GI/Abdominal Exam GI & Abdominal Exam: Soft, Normal Bowel Sounds. absent: Distended, Tenderness - Extremities Exam Extremities Exam: Normal Inspection. absent: Pedal Edema, Tenderness - Neurological Exam Neurological Exam: Alert, Awake, Oriented x3 - Skin Skin Exam: Dry, Intact, Normal Color, Warm Assessment and Plan - Assessment and Plan (Free Text) Plan: Disposition: Patient had left chest Port Cath placed on 01/03/17 and had bone marrow biopsy on the same day. She was started on Chemotherapy by Dr. Martinez for treatment of likely Multiple Myeloma on 01/04/17 with next treatment planned for 01/11/17. Bone Marrow Biopsy pathology report is pending. The hope is the chemotherapy will help with her respiratory status. She is currently on HiFlow Oxygen. She had episode of Atrial Fibrillation on 01/04/17 S/P HD. She was placed on Amiodarone Drip which was then discontinued on 01/05/17 evening and started on Lopressor 25 mg PO BID and has been rate controlled. Plan of care was discussed with patient's [id number] who was at bedside 01/07/17 and discussed the possibility of LTAC placement once patient's bone marrow biopsy results are known and chemotherapy plan is in place. Possible Multiple Myeloma Assessment and Plan: * Criteria: anemia, renal insufficiency, hypercalcemia * Nephrology Dr. Bill consulted-->help appreciated * Vascular Surgery: Dr. Ontiveros-->help appreciated * Surgery consulted and permacath placed * Heme-Oncology: Dr Martinez-->help appreciated * Possible patient has light chain multiple myeloma * free light chain lambda: [id number] * free light chain kappa: 17.5 * 24 hr urine UPEP--> 2108 (high) * urine IPE--->--->pending * beta2 microglobulin--->--->pending * LDH: 522 * Prior SPEP: (12/02/16): M Adarsh migrating in the gamma globulin region; 12/25 : M spike * 12/27: discussed with Dr. Martinez, patient's for bone marrow biopsy for Sunday and possible start chemotherapy. * Echocardiogram (12/27/16) moderate left ventricular diastolic dysfunction. left atrium is moderately dilated. right atrium is mildly dilated, mitral annular calcification is moderate. mitral valve is calcified and displays decreased opening. Mild mitral valve stenosis. severe pulmonary hypertension., EF: 60% * Monitor intake output * BUN/Cr elevated today: 90/7.7 * 12/25 Urinanalysis: +leuk esterase, 2+ protein, + Wbc and + RBC * urine culture: no growth (<1000 CFU/ml) * Ct Abdomen/Pelvis (12/25/16): No evidence of nephrolithiasis or hydronephrosis , 1,5 cm exophyitc high attentuation lesion at the mid to lower pole of right kidney. possibility of renal cell carcnioma should be excluded. 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 Airspace consolidation at left lobe associated with small pleural fussion suspicious for pneumonia * Chest xray w rib (12/29/16): stable heterogenous infiltrates are seen diffusely bilaterally and are unchanged compared to 12/28/16 prominent cardiac silhouette is stable. Fractures at the left 3rd, 6th, and 9th ribs identified at latter stage of healing * 12/30: Heme-onc unable to do bone marrow biopsy because of patient's shortness of breathe; reports does not need bone marrow biopsy at this time; recommend for port a cath * 12/31: given possibility of invasive myeloma to the lung; may need bronch/bal for diagnosis * 01/03: patient had Angela Cath placed on Left Chest and had Bone Marrow Biopsy by Dr. Martinez * 01/04: Pathology report on Bone Marrow Bx is pending and patient started on Chemo after HD with next planned 1 week from today * 01/08: WAITING FOR PATHOLOGY REPORT Status: Acute Thrombocytopenia Assessment and Plan: On admission: 357 Downtrending to 62 today Heparin and Pepcid DC HIT panel ordered to rule out heparin induced thrombocytopenia Status: Acute Acute Respiratory Distress Assessment and Plan: * Patient has history of COPD per pulmonary * Patient requires max oxygen support per ICU * CT Chest (12/31): interval worsening of nonspecific ground glass opacities in the lungs since the previous exam. Interstitial septal thickening and crazy paving appearance of the lungs. Mild cardiomegaly. Small left pleural effusion. Diffuse lytic bone lesion consistent with multiple myeloma * Solumedrol 40mg IV Q 8 hours was stopped 01/05 * Will need BAL/Bronch to see if patient has invasive myeloma to the lung-->ICU has discussed with patient's pulm 12/31 Fluid Overload Assessment and Plan: * ProBNP : 51606 * Contributing factors: acute on chronic kidney disease and hx of diastolic congestive heart failure * Vascular Surgery: Dr. Ontiveros-->notified by emergency room; for emergent dialysis access * Nephrology: Dr Bill on board-->acute on chronic kidney insufficiency, hypercalcemia; emergent dialysis * Chest Xray (12/25/16): prominent diffuse increased interstital lung markings throughout both lungs suggestive for edema and/or infiltrate * Chest Xray (12/27/16): persistent prominent diffuse increased consolidative changes throughtout both lungs with coarse reticular interstital airspce opacities. More focal confluent airspace consolidative changes in the right right midlung zone and left lung base with small left plueral effusion. Cardiomegaly * Echocardiogram (12/27/16) moderate left ventricular diastolic dysfunction. left atrium is moderately dilated. right atrium is mildly dilated, mitral annular calcification is moderate. mitral velve is calcified and displays decreased opening. Mild mitral valve stenosis. severe pulmonary hypertension., EF: 60% * Monitor intake output * Daily weights * 12/27/16: 2nd dialysis session today--> 2 liters removed * 12/28/16: Spoke with Dr. Bill-->dialysis for tomorrow; pending chest xray read * 12/29/16: stable heterogenous infiltrates are seen diffusely bilaterally and are unchanged compared to 12/28/16 prominent cardiac silhouteete is stable. Fractures at the left 3rd, 6th, and 9th ribs identified at latter stage of healing * 12/30/16: Had dialysis today * 12/31/16: Dialysis not improving lung exam * 01/03/17: Chest X Ray shows mild pulmonary congestion Acute kidney injury superimposed on chronic kidney disease Assessment and Plan: * Nephrology Dr. Bill consulted-->help appreciated, TTS Schedule * Hepatitis panel: Negative * HIV: negative * Mycoplasma Igm: negative * Legionella; Negative * Vascular Surgery: Dr. 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 * Recommended for SPEP, IPEP--->pending * free light chain lambda: 502290.7 * free light chain kappa: 17.5 * 24 hr urine UPEP-->resulting--> 2108 (high) * urine IPE * beta2 microglobulin * LDH: 522 * Prior SPEP: (12/02/16): M Adarsh migrating in the gamma globulin region; 12/25 : M spike * immuonfixation: pending * BUN/Cr elevated today: 90/7.7 * 12/25 Urinanalysis: +leuk esterase, 2+ protein, + Wbc and + RBC * urine culture: no growth (<1000 CFU/ml) * Ct Abdomen/Pelvis (12/25/16): No evidence of nephrolithiasis or hydronephrosis , 1,5 cm exophyitc high attentuation lesion at the mid to lower pole of right kidney. possibility of renal cell carcinoma should be excluded. 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 Airspace consolidation at left lobe associated with small pleural fussion suspicious for pneumonia * On HD through Right Chest Perma Cath with last HD on 01/06/17 Status: Acute Hypercalcemia Assessment and Plan: * Likely secondary to Multiple Myeloma * Nephrology (Dr. Bill) on board-->help appreciated * Heme-onc (Dr. Martinez) on board--->help appreciated * PTH related Protein: 51 * PTH intact: 14 * Vitamin D: 66.6 * ОЛЕГ: 28 * Ionized Calcium: 6.7 * Possible patient has light chain multiple myeloma * Recommended for SPEP, IPEP--->pending * free light chain lambda: 659387.7 * free light chain kappa: 17.5 * 24 hr urine UPEP--> 2108 (high) * urine IPE--->--->pending * beta2 microglobulin--->--->pending * LDH: 522 * Prior SPEP: (12/02/16): M Adarsh migrating in the gamma globulin region; 12/25 : M spike Status: Acute Possible CHF exacerbation Assessment and Plan: * History of diastolic congestive heart failure * Cardiology (Dr. Little) on consult; covering for Dr. Lynch's patients * ProBNP today: 18786 * Echocardiogram (12/27/16) moderate left ventricular diastolic dysfunction. left atrium is moderately dilated. right atrium is mildly dilated, mitral annular calcification is moderate. mitral valve is calcified and displays decreased opening. Mild mitral valve stenosis. severe pulmonary hypertension., EF: 60% * monitor intake and output * Patient has acute renal failure unable to start ARB/ОЛЕГ * Patient's blood pressure is normotensive w/o beta-vania * Crestor 5mg POqHS * Used to be on Cardizem prior hospitalization but off * Daily Weights Status: Acute Anemia Assessment and Plan: * Heme-onc (Dr. Martinez) on board-->help appreciated * Discussed with PMD: Dr. Winkler-->patient has had workup including GI workup in 2017 in regards to anemia * Thought to be chronic secondary to kidney disease; anemia of critical disease * Continue home meds Ferrous sulfate 325 mg daily * s/p 1 unit of PRBC on 12/25 7.2 * 12/25 stool occult blood: negative * Prior hospitalizations included in patient's chart; awaiting copy of report of GI workup * 01/01: received 2 units PRBC for Hgb<6 * HgB/Hct stable Status: Chronic Atrial fibrillation Assessment and Plan: * Cardiology (Dr. Little) covering for Dr. Lynch's patients * Continue home meds: Amiodarone 200 mg daily, Cardizem 240 mg daily * Patient is not on anticoagulation secondary to anemia * CHADS: 4 (DM, Age, HTN, CHF) * HASBLED:2 (Age and Renal Disease) * 01/04: had episode of rapid AF after HD. Was given Amiodarone 150 mg over 10 minutes and the rate was controlled but then had to be placed on Amiodarone Drip * 01/05: Discontinued Amiodarone Drip at 6:40 PM as she is rate controlled and started Lopressor 25 mg PO BID * 01/06: Better rate controlled Status: Acute HTN (hypertension) Assessment and Plan: * Monitor vital signs * Patient is on dialysis secondary to MARIA EUGENIA secondary to Multiple Myeloma Status: Chronic Leukocytosis Assessment and Plan: * In the ED, order for dose of Zosyn and Vancomycin on 12/25 * Strep, legionella: negative and mycoplasma IgM: negative * Patient recently at the hospital within 90 days-->consideration for possible hospital acquired pneumonia * Patient does not meet sepsis critera (04/19: leukocytosis) * Start Zosyn 2.25 gr IV Q8H (active since 12/25/16) and Doxcycline 100mg IV Q 12hours (active since 12/25/16 through 01/04/17) * Blood Culture (12/25/16): no growth after 5 days X 2 * Urine culture (12/25/16): <1000 * Procalcitonin low * Blood Culture (12/29/16): no growth after 3 days x 2 * Solumedrol 40mg IV Q 8 hours per pulmonary (12/27/16 through 01/04/17) * 01/02: currently on Zozyn 2.25 gm IV Q8H (12/25/16) and Bactrim DS 2 tab PO Q24 H (01/02/17: to cover for PCP) * 01/03: started on Zovirax 400 mg PO 1x/day by Heme/Onc Dr. Martinez Status: Acute History of COPD (not pulm fibrosis) Assessment and Plan: * Consult: Dr Kessler (pulmonary fibrosis) on board * continue home meds: Pulmicort Flexhaler 90 mcg INH RQ12hr * Solumedrol 40mg IV Q 8 hours (12/27/16 through 01/04/17) * 01/05 On High Flow Oxygen Status: Chronic History of Gastritis Assessment and Plan: * Pepcid 20mg PO daily was increased to 20 mg PO BID (01/06/17) Status: Chronic Diabetes managed as type 2 Assessment and Plan: * Continue home meds: Glipizide 10 mg daily * daily Accuchecks QAC and HS * [id number]: 6.1 * Lantus 10 Units SC HS * Regular Insulin 12 Units AC Meals Status: Chronic Hypothyroidism Status: Chronic * TSH: 4.84 * Levothyroxine 75mcg/day Status: Chronic Hepatitis Assessment and Plan: * RUQ pain will f/u Amylase, lipase which are normal * LFTs are normal Status: Chronic History of back pain Assessment and Plan: * held Magnesium oxide 400 mg BID * Tramadol 25 mg 1 tablet Q6hr for break through pain ordered 01/02 * On Lidoderm patch * likely secondary to lytic lesion likely secondary to Multiple Myeloma Status: Acute Lower extremity pain Assessment and Plan: * Held Magnesium oxide 400 mg BID; Tramadol-Acetaminophen 32.5-325 mg 2 tablets Q6hr Status: Acute Prophylactic measure Assessment and Plan: * DVT: SCDs b/l; heparin 5000 units subq12- HELD DUE TO THROMBOCYTOPENIA * GI: Pepcid 20mg PO- HELD DUE TO THROMBOCYTOPENIA * Monitor intake and output * Daily Weight * PT/OT eval- LTAC Status: Acute [place] Phan DO, PGY-1 <Nika Junior V - Last Filed: 01/09/17 05:23> Objective - Vital Signs/Intake and Output Vital Signs (last 24 hours): Temp Pulse Resp BP Pulse Ox 97.6 F 67 22 104/57 L 95 01/09/17 00:00 01/09/17 00:00 01/09/17 00:00 01/09/17 00:00 01/09/17 00:00 Intake and Output: 01/08/17 01/09/17 18:59 06:59 Intake Total 340 Balance 340 - Medications Medications: Current Medications Acyclovir (Zovirax) 400 mg PO DAILY [facility] Last Admin: 01/08/17 11:37 Dose: 400 mg Albuterol/Ipratropium (Duoneb 3 Mg/0.5 Mg (3 Ml) Ud) 3 ml INH RQ6 [facility] Last Admin: 01/09/17 01:46 Dose: Not Given Docusate Sodium (Colace) 100 mg PO TID [facility] Last Admin: 01/08/17 18:14 Dose: 100 mg Ferrous Sulfate (Feosol) 325 mg PO DAILY [facility] Last Admin: 01/08/17 11:38 Dose: 325 mg Glipizide (Glucotrol) 10 mg PO DAILY [facility] Last Admin: 01/08/17 11:38 Dose: 10 mg Insulin Glargine (Lantus) 10 unit SC [facility] Last Admin: 01/08/17 22:18 Dose: Not Given Insulin Human Regular (Novolin R) 0 unit SC [facility] PRN Reason: Protocol Last Admin: 01/08/17 22:18 Dose: Not Given Levothyroxine Sodium (Synthroid) 75 mcg PO DAILY@0630 [facility] Last Admin: 01/08/17 06:07 Dose: 75 mcg Lidocaine (Lidoderm) 1 ea TD DAILY [facility] Last Admin: 01/08/17 11:39 Dose: Not Given Metoprolol Tartrate (Lopressor) 25 mg PO BID [facility] Last Admin: 01/08/17 18:14 Dose: 25 mg Ondansetron HCl (Zofran Inj) 4 mg IVP Q6H PRN PRN Reason: Nausea/Vomiting Last Admin: 01/06/17 13:30 Dose: 4 mg Rosuvastatin Calcium (Crestor) 5 mg PO HS [facility] Last Admin: 01/08/17 22:18 Dose: 5 mg Senna/Docusate Sodium (Senokot S 50 Mg-8.6 Mg) 1 tab PO DAILY [facility] Last Admin: 01/08/17 14:32 Dose: 1 tab Sevelamer Carbonate (Renvela) 1,600 mg PO TIDCC [facility] Last Admin: 01/08/17 18:15 Dose: 1,600 mg Tramadol HCl (Ultram) 25 mg PO Q6H PRN PRN Reason: Pain, severe (8-10) Last Admin: 01/07/17 22:03 Dose: 25 mg Trimethoprim/Sulfamethoxazole (Bactrim Ss Tab) 1 tab PO DAILY [facility] Last Admin: 01/08/17 11:37 Dose: 1 tab - Labs Labs: 01/08/17 06:24 01/08/17 06:24 PT 13.1 SECONDS (9.7-12.2) H 12/26/16 08:05 INR 1.2 12/26/16 08:05 APTT 27 SECONDS (21-34) 01/01/17 06:00 Attending/Attestation - Attestation I have personally seen and examined this patient.: Yes I have fully participated in the care of the patient.: Yes I have reviewed all pertinent clinical information, including history, physical exam and plan: Yes Notes (Text): This is late computer entry for 01/08/17. Patient seen, examined, and case discussed with resident during rounds this morning. Patient transferred out from ICU on 01/07/17. Patient comfortable on hiflow oxygen; refuses Bipap. Patient reporting low back pain; will attempt to avoid narcotic in light of hypoxemia. Resident f/u bone marrow biopsy will not be available until potentially this . Discussed with heme-onc, this is Multiple Myeloma; will need chemotherapy to be arrange upon discharge Referral to subacute rehab to support chemotherapy and dialysis; LTAC does not provide chemotherapy. Assessment/Plan (1) Acute Respiratory Distress Assessment and Plan: * Pulmonary (Dr. Kessler) on board-->help appreciated * Patient has history of COPD per pulmonary * Patient requires max oxygen support per ICU * CT Chest (12/31): interval worsening of nonspecific ground glass opacities in the lungs since the previous exam. Interstitial septal thickening and crazy paving appearance of the lungs. Mild cardiomegaly. Small left pleural effusion. Diffuse lytic bone lesion consistent with multiple myeloma * Solumedrol 40mg IV Q 8 hours was stopped 01/05 * Will need BAL/Bronch to see if patient has invasive myeloma to the lung-->ICU has discussed with patient's pulm 12/31-->patient is high risk of BAL/Bronch given severe hypoxemia 01/01 note * on high flow oxygen (2) Fluid Overload Assessment and Plan: * ProBNP : 16281 * Contributing factors: acute on chronic kidney disease and hx of diastolic congestive heart failure * Vascular Surgery: Dr. Ontiveros-->notified by emergency room; for emergent dialysis access * Nephrology: Dr Bill on board-->acute on chronic kidney insufficiency, hypercalcemia; emergent dialysis * Chest Xray (12/25/16): prominent diffuse increased interstital lung markings throughout both lungs suggestive for edema and/or infiltrate * Chest Xray (12/27/16): persistent prominent diffuse increased consolidative changes throughtout both lungs with coarse reticular interstital airspce opacities. More focal confluent airspace consolidative changes in the right right midlung zone and left lung base with small left plueral effusion. Cardiomegaly * Echocardiogram (12/27/16) moderate left ventricular diastolic dysfunction. left atrium is moderately dilated. right atrium is mildly dilated, mitral annular calcification is moderate. mitral velve is calcified and displays decreased opening. Mild mitral valve stenosis. severe pulmonary hypertension., EF: 60% * Monitor intake output * Daily weights * 12/27/16: 2nd dialysis session today--> 2 liters removed * 12/28/16: Spoke with Dr. Bill-->dialysis for tomorrow; pending chest xray read * 12/29/16: stable heterogenous infiltrates are seen diffusely bilaterally and are unchanged compared to 12/28/16 prominent cardiac silhouteete is stable. Fractures at the left 3rd, 6th, and 9th ribs identified at latter stage of healing * 12/30/16: Had dialysis today * 12/31/16: Dialysis not improving lung exam * 01/03/17: Chest X Ray shows mild pulmonary congestion (3) Acute kidney injury superimposed on chronic kidney disease Assessment and Plan: * Nephrology Dr. Bill consulted-->help appreciated * Hepatitis panel: Negative * HIV: negative * Mycoplasma Igm: negative * Legionella; Negative * Vascular Surgery: Dr. Ontiveros-->help appreciated * Surgery consulted; tunneled dialysis catheter placed 12/25; completed two sessions of dialysis * Heme-Oncology: Dr Martinez-->help appreciated * patient has light chain multiple myeloma * Recommended for SPEP, IPEP--->detected; M-spike * free light chain lambda: 103253.7 * free light chain kappa: 17.5 * 24 hr urine UPEP-->resulting--> 2108 (high) * beta2 microglobulin * LDH: 522 * Prior SPEP: (12/02/16): M Adarsh migrating in the gamma globulin region; 12/25 : M spike * Chemotherapy-->first session on 01/04/17 * Bone marrow biopsy-->wont be available until , 01/11/17 * 12/25 Urinanalysis: +leuk esterase, 2+ protein, + Wbc and + RBC * urine culture: no growth (<1000 CFU/ml) * Ct Abdomen/Pelvis (12/25/16): No evidence of nephrolithiasis or hydronephrosis , 1,5 cm exophyitc high attentuation lesion at the mid to lower pole of right kidney. possibility of renal cell carcinoma should be excluded. 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 Airspace consolidation at left lobe associated with small pleural fussion suspicious for pneumonia * On HD through Right Chest Perma Cath Status: Acute (4) Multiple Myeloma Assessment and Plan: * Criteria: anemia, renal insufficiency, hypercalcemia * Nephrology Dr. Bill consulted-->help appreciated * Vascular Surgery: Dr. Ontiveros-->help appreciated * Surgery consulted and permacath placed * Heme-Oncology: Dr Martinez-->help appreciated * patient has light chain multiple myeloma * Recommended for SPEP, IPEP--->detected; M-spike * free light chain lambda: 519975.7 * free light chain kappa: 17.5 * 24 hr urine UPEP-->resulting--> 2108 (high) * beta2 microglobulin * LDH: 522 * Prior SPEP: (12/02/16): M Adarsh migrating in the gamma globulin region; 12/25 : M spike * Chemotherapy-->first session on 01/04/17 - Bortezomib 2.3mg IV X1 - Cyclophosphamide 500mg IVX1 - Dexamethasone 20mg IV X1 * Echocardiogram (12/27/16) moderate left ventricular diastolic dysfunction. left atrium is moderately dilated. right atrium is mildly dilated, mitral annular calcification is moderate. mitral valve is calcified and displays decreased opening. Mild mitral valve stenosis. severe pulmonary hypertension., EF: 60% * Monitor intake output * BUN/Cr elevated today: 90/7.7 * 12/25 Urinanalysis: +leuk esterase, 2+ protein, + Wbc and + RBC * urine culture: no growth (<1000 CFU/ml) * Ct Abdomen/Pelvis (12/25/16): No evidence of nephrolithiasis or hydronephrosis , 1,5 cm exophyitc high attentuation lesion at the mid to lower pole of right kidney. possibility of renal cell carcnioma should be excluded. 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 Airspace consolidation at left lobe associated with small pleural fussion suspicious for pneumonia * Chest xray w rib (12/29/16): stable heterogenous infiltrates are seen diffusely bilaterally and are unchanged compared to 12/28/16 prominent cardiac silhouette is stable. Fractures at the left 3rd, 6th, and 9th ribs identified at latter stage of healing * 12/30: Heme-onc unable to do bone marrow biopsy because of patient's shortness of breathe; reports does not need bone marrow biopsy at this time; recommend for port a cath * 12/31: given possibility of invasive myeloma to the lung; may need bronch/bal for diagnosis * 01/03: patient had Angela Cath placed on Left Chest and had Bone Marrow Biopsy by Dr. Martinez * 01/04: Pathology report on Bone Marrow Bx is pending and patient started on Chemo after HD with next planned 1 week from today * 01/08: pending report from bone marrow biopsy likely to be available , 01/11/17; patient referred to subacute rehab Status: Acute (5) Hypercalcemia Assessment and Plan: * Likely secondary to Multiple Myeloma, see workup under Multiple Myeloma * Nephrology (Dr. Bill) on board-->help appreciated * Heme-onc (Dr. Martinez) on board--->help appreciated * PTH related Protein: 51 * PTH intact: 14 * Vitamin D: 66.6 * ОЛЕГ: 28 * Ionized Calcium: 6.7 * Possible patient has light chain multiple myeloma Status: (6) Possible CHF exacerbation Assessment and Plan: * History of diastolic congestive heart failure * Cardiology (Dr. Little) on consult; covering for Dr. Lynch's patients * ProBNP: 06003 * Echocardiogram (12/27/16) moderate left ventricular diastolic dysfunction. left atrium is moderately dilated. right atrium is mildly dilated, mitral annular calcification is moderate. mitral valve is calcified and displays decreased opening. Mild mitral valve stenosis. severe pulmonary hypertension., EF: 60% * monitor intake and output * Patient has acute renal failure unable to start ARB/ОЛЕГ * Lopressor 25mg PO BID * Crestor 5mg POqHS * Daily Weights Status: Acute (7) Anemia Assessment and Plan: * Heme-onc (Dr. Martinez) on board-->help appreciated * Discussed with PMD: Dr. Winkler-->patient has had workup including GI workup in 2017 in regards to anemia * Thought to be chronic secondary to kidney disease; anemia of critical disease * Continue home meds Ferrous sulfate 325 mg daily * s/p unit of PRBC during hospitalization * 12/25 stool occult blood: negative * Prior hospitalizations included in patient's chart; awaiting copy of report of GI workup * HgB/Hct stable Status: Chronic (8) Atrial fibrillation Assessment and Plan: * Cardiology (Dr. Little) covering for Dr. Lynch's patients * Continue home meds: Amiodarone 200 mg daily, Cardizem 240 mg daily * Patient is not on anticoagulation secondary to anemia * CHADS: 4 (DM, Age, HTN, CHF) * HASBLED:2 (Age and Renal Disease) * 01/04: had episode of rapid AF after HD. Was given Amiodarone 150 mg over 10 minutes and the rate was controlled but then had to be placed on Amiodarone Drip * 01/05: Discontinued Amiodarone Drip at 6:40 PM as she is rate controlled and started Lopressor 25 mg PO BID * 01/06: Better rate controlled; c/w Lopressor Status: Acute (9) HTN (hypertension) Assessment and Plan: * Monitor vital signs * Patient is on dialysis secondary to MARIA EUGENIA secondary to Multiple Myeloma Status: Chronic (10) Leukocytosis Assessment and Plan: * In the ED, order for dose of Zosyn and Vancomycin on 12/25 * Strep, legionella: negative and mycoplasma IgM: negative * Patient recently at the hospital within 90 days-->consideration for possible hospital acquired pneumonia * Patient does not meet sepsis critera (04/19: leukocytosis) * Start Zosyn 2.25 gr IV Q8H (active since 12/25/16) and Doxcycline 100mg IV Q 12hours (active since 12/25/16 through 01/04/17) * Blood Culture (12/25/16): no growth after 5 days X 2 * Urine culture (12/25/16): <1000 * Procalcitonin low * Blood Culture (12/29/16): no growth after 3 days x 2 * Solumedrol 40mg IV Q 8 hours per pulmonary (12/27/16 through 01/04/17); Decadron IV 01/04 for chemo * 01/02: currently on Zozyn 2.25 gm IV Q8H (12/25/16) and Bactrim DS 2 tab PO Q24 H (01/02/17: to cover for PCP) * 01/03: started on Zovirax 400 mg PO 1x/day by Heme/Onc Dr. 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) Assessment and Plan: * Consult: Dr Kessler (pulmonary fibrosis) on board * continue home meds: Pulmicort Flexhaler 90 mcg INH RQ12hr * Solumedrol 40mg IV Q 8 hours (12/27/16 through 01/04/17) * 01/05 On High Flow Oxygen Status: Chronic (12) History of Gastritis Assessment and Plan: * Pepcid 20mg PO daily was increased to 20 mg PO BID (01/06/17) Status: Chronic (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 Assessment and Plan: * Continue home meds: Glipizide 10 mg daily * daily Accuchecks QAC and HS * [id number]: 6.1 * Lantus 10 Units SC HS * Regular Insulin 12 Units AC Meals Status: Chronic (14) Hypothyroidism Status: Chronic * TSH: 4.84 * Levothyroxine 75mcg/day Status: Chronic (15) Hepatitis Assessment and Plan: * RUQ pain will f/u Amylase, lipase which are normal * LFTs are normal * GI outpatient: Braxton/Amy; previously treated Hepatitis C Status: Chronic (16) History of back pain Assessment and Plan: * held Magnesium oxide 400 mg BID * Tramadol 25 mg 1 tablet Q6hr for break through pain ordered 01/02 * On Lidoderm patch * likely secondary to lytic lesion likely secondary to Multiple Myeloma Status: Acute (17) Lower extremity pain Assessment and Plan: * Held Magnesium oxide 400 mg BID; Tramadol-Acetaminophen 32.5-325 mg 2 tablets Q6hr Status: Acute (18) Thrombocytopenia * held heparin * ordered for HIT antibiotics * Possible effect from Bactrim SE? Status: Acute (19) Prophylactic measure Assessment and Plan: * DVT: SCDs b/l; d/c heparin 5000 units subq12 secondary to thrombocytopenia * GI: Pepcid 20mg PO was increased to 20 mg PO BID (01/06/17) * Monitor intake and output * Daily Weight * PT/OT eval Status: Acute Disposition: Patient was accepted to LTAC; However LTAC does not provide chemotherapy; Patient has insidious onset of multiple myeloma requiring chemotherapy per discussion with heme-onc; Discussed with administrator social welfare, referral for subacute rehab; Patient is newly dialysis on this admission. Patient's PMD: Dr Winkler; social work to attempt to secure rehab placement and check for provider. Heme-onc will follow-up with patient pending on rehab to c/ w chemotherapy. Bone marrow biopsy will not be back until .
[2017-01-08] MEDS: Docusate-Senna 50 mg-8.6 mg Tab PO SCH (14:32)
--- NOTE | 2017-01-08 16:39 | CARD ---
APPROVED REPORT EKG Measurement Heart [id number] <Conclusion> Atrial fibrillation ST & T wave abnormality, consider inferior ischemia Abnormal ECG
--- NOTE | 2017-01-08 19:23 | CP.PCM.PN ---
Subjective - Date & Time of Evaluation Date of Evaluation: 01/08/17 Time of Evaluation: 04:35 - Subjective Subjective: dictated Objective - Vital Signs/Intake and Output Vital Signs (last 24 hours): Temp Pulse Resp BP Pulse Ox 98.8 F 72 20 116/62 98 01/08/17 16:00 01/08/17 16:00 01/08/17 16:00 01/08/17 18:14 01/08/17 16:00 Intake and Output: 01/08/17 01/09/17 18:59 06:59 Intake Total 340 Balance 340 - Medications Medications: Current Medications Acyclovir (Zovirax) 400 mg PO DAILY [facility] Last Admin: 01/08/17 11:37 Dose: 400 mg Albuterol/Ipratropium (Duoneb 3 Mg/0.5 Mg (3 Ml) Ud) 3 ml INH RQ6 [facility] Last Admin: 01/08/17 14:21 Dose: 3 ml Docusate Sodium (Colace) 100 mg PO TID [facility] Last Admin: 01/08/17 18:14 Dose: 100 mg Ferrous Sulfate (Feosol) 325 mg PO DAILY [facility] Last Admin: 01/08/17 11:38 Dose: 325 mg Glipizide (Glucotrol) 10 mg PO DAILY [facility] Last Admin: 01/08/17 11:38 Dose: 10 mg Insulin Glargine (Lantus) 10 unit SC [facility] Last Admin: 01/07/17 21:55 Dose: Not Given Insulin Human Regular (Novolin R) 0 unit SC ACHS [facility] PRN Reason: Protocol Last Admin: 01/08/17 18:14 Dose: Not Given Levothyroxine Sodium (Synthroid) 75 mcg PO DAILY@0630 [facility] Last Admin: 01/08/17 06:07 Dose: 75 mcg Lidocaine (Lidoderm) 1 ea TD DAILY [facility] Last Admin: 01/08/17 11:39 Dose: Not Given Metoprolol Tartrate (Lopressor) 25 mg PO BID [facility] Last Admin: 01/08/17 18:14 Dose: 25 mg Ondansetron HCl (Zofran Inj) 4 mg IVP Q6H PRN PRN Reason: Nausea/Vomiting Last Admin: 01/06/17 13:30 Dose: 4 mg Rosuvastatin Calcium (Crestor) 5 mg PO HS [facility] Last Admin: 01/07/17 21:53 Dose: 5 mg Senna/Docusate Sodium (Senokot S 50 Mg-8.6 Mg) 1 tab PO DAILY [facility] Last Admin: 01/08/17 14:32 Dose: 1 tab Sevelamer Carbonate (Renvela) 1,600 mg PO TIDCC [facility] Last Admin: 01/08/17 18:15 Dose: 1,600 mg Tramadol HCl (Ultram) 25 mg PO Q6H PRN PRN Reason: Pain, severe (8-10) Last Admin: 01/07/17 22:03 Dose: 25 mg Trimethoprim/Sulfamethoxazole (Bactrim Ss Tab) 1 tab PO DAILY [facility] Last Admin: 01/08/17 11:37 Dose: 1 tab - Labs Labs: 01/08/17 06:24 01/08/17 06:24 PT 13.1 SECONDS (9.7-12.2) H 12/26/16 08:05 INR 1.2 12/26/16 08:05 APTT 27 SECONDS (21-34) 01/01/17 06:00
--- NOTE | 2017-01-08 22:07 | PN ---
DATE: SUBJECTIVE: Caryl is now back on the floor and she has no new complaints except being constipated. She still appears weak. She did get chemotherapy. She is on acyclovir and Bactrim prophylaxis and Zithromax has been discontinued. PHYSICAL EXAMINATION VITAL SIGNS: She has a temperature of 98.8. pulse 72, blood pressure 116/62, respirations are 20 and she is getting treatment for multiple myeloma and has prophylaxis on . GENERAL: She appears chronically ill. HEENT: Head is atraumatic. NECK: Supple. LUNGS: Have decreased breath sounds bilaterally. HEART: S1 and S2 regular. ABDOMEN: Soft and nontender. No guarding. No rigidity present. EXTREMITIES: Have no edema, clubbing or cyanosis. She has now a new Perm-A-Cath. LABORATORY DATA: Labs are noted. Labs show white count 14.6, hemoglobin 8.6, hematocrit 25.9 and platelet count remains low at 62. Sodium is 131, potassium 4.4, chlorides are 93, and anion gap is 24. She will need to be monitored closely, otherwise she is stable. Her cultures have all been negative in the recent past. She did have renal failure, congestive heart failure and respiratory failure and is recovering. Pau Thakkar MD
[2017-01-08] MEDS: (Lantus) Insulin Glargine, Recombinant SC SCH (22:18)
--- NOTE | 2017-01-08 22:40 | CP.PCM.PN ---
Subjective - Date & Time of Evaluation Date of Evaluation: 01/08/17 Time of Evaluation: 14:10 - Subjective Subjective: Patient was seen and examined. Patient still has some dyspnea Physical Examination - Constitutional Appears: No Acute Distress - Head Exam Head Exam: NORMAL INSPECTION, NORMOCEPHALIC - Eye Exam Eye Exam: EOMI, Normal appearance, PERRL - ENT Exam ENT Exam: Mucous Membranes Moist - Respiratory Exam Respiratory Exam: Clear to Ausculation Bilateral, NORMAL BREATHING PATTERN. absent: Decreased Breath Sounds, Wheezes - Cardiovascular Exam Cardiovascular Exam: REGULAR RHYTHM, RRR, +S1, +S2 - GI/Abdominal Exam GI & Abdominal Exam: Soft, Normal Bowel Sounds. absent: Distended, Tenderness - Extremities Exam Extremities Exam: Normal Inspection. absent: Pedal Edema, Tenderness - Neurological Exam Neurological Exam: Alert, Awake, Oriented x3 - Skin Skin Exam: Dry, Intact, Normal Color, Warm Objective - Vital Signs/Intake and Output Vital Signs (last 24 hours): Temp Pulse Resp BP Pulse Ox 98.8 F 72 20 116/62 98 01/08/17 16:00 01/08/17 16:00 01/08/17 16:00 01/08/17 18:14 01/08/17 16:00 Intake and Output: 01/08/17 01/09/17 18:59 06:59 Intake Total 340 Balance 340 - Medications Medications: Current Medications Acyclovir (Zovirax) 400 mg PO DAILY [facility] Last Admin: 01/08/17 11:37 Dose: 400 mg Albuterol/Ipratropium (Duoneb 3 Mg/0.5 Mg (3 Ml) Ud) 3 ml INH RQ6 [facility] Last Admin: 01/08/17 20:42 Dose: 3 ml Docusate Sodium (Colace) 100 mg PO TID [facility] Last Admin: 01/08/17 18:14 Dose: 100 mg Ferrous Sulfate (Feosol) 325 mg PO DAILY [facility] Last Admin: 01/08/17 11:38 Dose: 325 mg Glipizide (Glucotrol) 10 mg PO DAILY [facility] Last Admin: 01/08/17 11:38 Dose: 10 mg Insulin Glargine (Lantus) 10 unit SC HS [facility] Last Admin: 01/08/17 22:18 Dose: Not Given Insulin Human Regular (Novolin R) 0 unit SC [facility] PRN Reason: Protocol Last Admin: 01/08/17 22:18 Dose: Not Given Levothyroxine Sodium (Synthroid) 75 mcg PO DAILY@0630 [facility] Last Admin: 01/08/17 06:07 Dose: 75 mcg Lidocaine (Lidoderm) 1 ea TD DAILY [facility] Last Admin: 01/08/17 11:39 Dose: Not Given Metoprolol Tartrate (Lopressor) 25 mg PO BID [facility] Last Admin: 01/08/17 18:14 Dose: 25 mg Ondansetron HCl (Zofran Inj) 4 mg IVP Q6H PRN PRN Reason: Nausea/Vomiting Last Admin: 01/06/17 13:30 Dose: 4 mg Rosuvastatin Calcium (Crestor) 5 mg PO HS [facility] Last Admin: 01/08/17 22:18 Dose: 5 mg Senna/Docusate Sodium (Senokot S 50 Mg-8.6 Mg) 1 tab PO DAILY [facility] Last Admin: 01/08/17 14:32 Dose: 1 tab Sevelamer Carbonate (Renvela) 1,600 mg PO TIDCC [facility] Last Admin: 01/08/17 18:15 Dose: 1,600 mg Tramadol HCl (Ultram) 25 mg PO Q6H PRN PRN Reason: Pain, severe (8-10) Last Admin: 01/07/17 22:03 Dose: 25 mg Trimethoprim/Sulfamethoxazole (Bactrim Ss Tab) 1 tab PO DAILY [facility] Last Admin: 01/08/17 11:37 Dose: 1 tab - Labs Labs: 01/08/17 06:24 01/08/17 06:24 PT 13.1 SECONDS (9.7-12.2) H 12/26/16 08:05 INR 1.2 12/26/16 08:05 APTT 27 SECONDS (21-34) 01/01/17 06:00 Assessment and Plan - Assessment and Plan (Free Text) Assessment: Assessment and Plan - Assessment and Plan (Free Text) Plan: Disposition: Patient had left chest Port Cath placed on 01/03/17 and had bone marrow biopsy on the same day. She was started on Chemotherapy by Dr. Martinez for treatment of likely Multiple Myeloma on 01/04/17 with next treatment planned for 01/11/17. Bone Marrow Biopsy pathology report is pending. The hope is the chemotherapy will help with her respiratory status. She is currently on HiFlow Oxygen. She had episode of Atrial Fibrillation on 01/04/17 S/P HD. She was placed on Amiodarone Drip which was then discontinued on 01/05/17 evening and started on Lopressor 25 mg PO BID and has been rate controlled. Plan of care was discussed with patient's [id number] who was at bedside 01/07/17 and discussed the possibility of LTAC placement once patient's bone marrow biopsy results are known and chemotherapy plan is in place. Possible Multiple Myeloma Assessment and Plan: * Criteria: anemia, renal insufficiency, hypercalcemia * Nephrology Dr. Bill consulted-->help appreciated * Vascular Surgery: Dr. 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 Martinez, patient's for bone marrow biopsy for Sunday and possible start chemotherapy. * Echocardiogram (12/27/16) moderate left ventricular diastolic dysfunction. left atrium is moderately dilated. right atrium is mildly dilated, mitral annular calcification is moderate. mitral valve is calcified and displays decreased opening. Mild mitral valve stenosis. severe pulmonary hypertension., EF: 60% * Monitor intake output * BUN/Cr elevated today: 90/7.7 * 12/25 Urinanalysis: +leuk esterase, 2+ protein, + Wbc and + RBC * urine culture: no growth (<1000 CFU/ml) * Ct Abdomen/Pelvis (12/25/16): No evidence of nephrolithiasis or hydronephrosis , 1,5 cm exophyitc high attentuation lesion at the mid to lower pole of right kidney. possibility of renal cell carcnioma should be excluded. 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 Airspace consolidation at left lobe associated with small pleural fussion suspicious for pneumonia * Chest xray w rib (12/29/16): stable heterogenous infiltrates are seen diffusely bilaterally and are unchanged compared to 12/28/16 prominent cardiac silhouette is stable. Fractures at the left 3rd, 6th, and 9th ribs identified at latter stage of healing * 12/30: Heme-onc unable to do bone marrow biopsy because of patient's shortness of breathe; reports does not need bone marrow biopsy at this time; recommend for port a cath * 12/31: given possibility of invasive myeloma to the lung; may need bronch/bal for diagnosis * 01/03: patient had Angela Cath placed on Left Chest and had Bone Marrow Biopsy by Dr. Martinez * 01/04: Pathology report on Bone Marrow Bx is pending and patient started on Chemo after HD with next planned 1 week from today * 01/08: WAITING FOR PATHOLOGY REPORT Status: Acute Thrombocytopenia Assessment and Plan: On admission: 357 Downtrending to 62 today Heparin and Pepcid DC HIT panel ordered to rule out heparin induced thrombocytopenia Status: Acute Acute Respiratory Distress Assessment and Plan: * Patient has history of COPD per pulmonary * Patient requires max oxygen support per ICU * CT Chest (12/31): interval worsening of nonspecific ground glass opacities in the lungs since the previous exam. Interstitial septal thickening and crazy paving appearance of the lungs. Mild cardiomegaly. Small left pleural effusion. Diffuse lytic bone lesion consistent with multiple myeloma * Solumedrol 40mg IV Q 8 hours was stopped 01/05 * Will need BAL/Bronch to see if patient has invasive myeloma to the lung-->ICU has discussed with patient's pulm 12/31 Fluid Overload Assessment and Plan: * ProBNP : 77414 * Contributing factors: acute on chronic kidney disease and hx of diastolic congestive heart failure * Vascular Surgery: Dr. Ontiveros-->notified by emergency room; for emergent dialysis access * Nephrology: Dr Bill on board-->acute on chronic kidney insufficiency, hypercalcemia; emergent dialysis * Chest Xray (12/25/16): prominent diffuse increased interstital lung markings throughout both lungs suggestive for edema and/or infiltrate * Chest Xray (12/27/16): persistent prominent diffuse increased consolidative changes throughtout both lungs with coarse reticular interstital airspce opacities. More focal confluent airspace consolidative changes in the right right midlung zone and left lung base with small left plueral effusion. Cardiomegaly * Echocardiogram (12/27/16) moderate left ventricular diastolic dysfunction. left atrium is moderately dilated. right atrium is mildly dilated, mitral annular calcification is moderate. mitral velve is calcified and displays decreased opening. Mild mitral valve stenosis. severe pulmonary hypertension., EF: 60% * Monitor intake output * Daily weights * 12/27/16: 2nd dialysis session today--> 2 liters removed * 12/28/16: Spoke with Dr. Bill-->dialysis for tomorrow; pending chest xray read * 12/29/16: stable heterogenous infiltrates are seen diffusely bilaterally and are unchanged compared to 12/28/16 prominent cardiac silhouteete is stable. Fractures at the left 3rd, 6th, and 9th ribs identified at latter stage of healing * 12/30/16: Had dialysis today * 12/31/16: Dialysis not improving lung exam * 01/03/17: Chest X Ray shows mild pulmonary congestion Acute kidney injury superimposed on chronic kidney disease Assessment and Plan: * Nephrology Dr. Bill consulted-->help appreciated, TTS Schedule * Hepatitis panel: Negative * HIV: negative * Mycoplasma Igm: negative * Legionella; Negative * Vascular Surgery: Dr. 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 * Recommended for SPEP, IPEP--->pending * free light chain lambda: 465740.7 * free light chain kappa: 17.5 * 24 hr urine UPEP-->resulting--> 2108 (high) * urine IPE * beta2 microglobulin * LDH: 522 * Prior SPEP: (12/02/16): M Adarsh migrating in the gamma globulin region; 12/25 : M spike * immuonfixation: pending * BUN/Cr elevated today: 90/7.7 * 12/25 Urinanalysis: +leuk esterase, 2+ protein, + Wbc and + RBC * urine culture: no growth (<1000 CFU/ml) * Ct Abdomen/Pelvis (12/25/16): No evidence of nephrolithiasis or hydronephrosis , 1,5 cm exophyitc high attentuation lesion at the mid to lower pole of right kidney. possibility of renal cell carcinoma should be excluded. 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 Airspace consolidation at left lobe associated with small pleural fussion suspicious for pneumonia * On HD through Right Chest Perma Cath with last HD on 01/06/17 Status: Acute Hypercalcemia Assessment and Plan: * Likely secondary to Multiple Myeloma * Nephrology (Dr. Bill) on board-->help appreciated * Heme-onc (Dr. Martinez) on board--->help appreciated * PTH related Protein: 51 * PTH intact: 14 * Vitamin D: 66.6 * ОЛЕГ: 28 * Ionized Calcium: 6.7 * Possible patient has light chain multiple myeloma * Recommended for SPEP, IPEP--->pending * free light chain lambda: 780569.7 * free light chain kappa: 17.5 * 24 hr urine UPEP--> 2108 (high) * urine IPE--->--->pending * beta2 microglobulin--->--->pending * LDH: 522 * Prior SPEP: (12/02/16): M Adarsh migrating in the gamma globulin region; 12/25 : M spike Status: Acute Possible CHF exacerbation Assessment and Plan: * History of diastolic congestive heart failure * ProBNP today: 00923 * Echocardiogram (12/27/16) moderate left ventricular diastolic dysfunction. left atrium is moderately dilated. right atrium is mildly dilated, mitral annular calcification is moderate. mitral valve is calcified and displays decreased opening. Mild mitral valve stenosis. severe pulmonary hypertension., EF: 60% * monitor intake and output * Patient has acute renal failure unable to start ARB/ОЛЕГ * Patient's blood pressure is normotensive w/o beta-vania * Crestor 5mg POqHS * Used to be on Cardizem prior hospitalization but off * Daily Weights Status: Acute Anemia Assessment and Plan: * Heme-onc (Dr. Martinez) on board-->help appreciated * Discussed with PMD: Dr. Winkler-->patient has had workup including GI workup in 2017 in regards to anemia * Thought to be chronic secondary to kidney disease; anemia of critical disease * Continue home meds Ferrous sulfate 325 mg daily * s/p 1 unit of PRBC on 12/25 7.2 * 12/25 stool occult blood: negative * Prior hospitalizations included in patient's chart; awaiting copy of report of GI workup * 01/01: received 2 units PRBC for Hgb<6 * HgB/Hct stable Status: Chronic Atrial fibrillation Assessment and Plan: * Continue home meds: Amiodarone 200 mg daily, Cardizem 240 mg daily * Patient is not on anticoagulation secondary to anemia * CHADS: 4 (DM, Age, HTN, CHF) * HASBLED:2 (Age and Renal Disease) * 01/04: had episode of rapid AF after HD. Was given Amiodarone 150 mg over 10 minutes and the rate was controlled but then had to be placed on Amiodarone Drip * 01/05: Discontinued Amiodarone Drip at 6:40 PM as she is rate controlled and started Lopressor 25 mg PO BID * 01/06: Better rate controlled Status: Acute HTN (hypertension) Assessment and Plan: * Monitor vital signs * Patient is on dialysis secondary to MARIA EUGENIA secondary to Multiple Myeloma Status: Chronic Leukocytosis Assessment and Plan: * In the ED, order for dose of Zosyn and Vancomycin on 12/25 * Strep, legionella: negative and mycoplasma IgM: negative * Patient recently at the hospital within 90 days-->consideration for possible hospital acquired pneumonia * Patient does not meet sepsis critera (04/19: leukocytosis) * Start Zosyn 2.25 gr IV Q8H (active since 12/25/16) and Doxcycline 100mg IV Q 12hours (active since 12/25/16 through 01/04/17) * Blood Culture (12/25/16): no growth after 5 days X 2 * Urine culture (12/25/16): <1000 * Procalcitonin low * Blood Culture (12/29/16): no growth after 3 days x 2 * Solumedrol 40mg IV Q 8 hours per pulmonary (12/27/16 through 01/04/17) * 01/02: currently on Zozyn 2.25 gm IV Q8H (12/25/16) and Bactrim DS 2 tab PO Q24 H (01/02/17: to cover for PCP) * 01/03: started on Zovirax 400 mg PO 1x/day by Heme/Onc Dr. Martinez Status: Acute History of COPD (not pulm fibrosis) Assessment and Plan: * Consult: Dr Kessler (pulmonary fibrosis) on board * continue home meds: Pulmicort Flexhaler 90 mcg INH RQ12hr * Solumedrol 40mg IV Q 8 hours (12/27/16 through 01/04/17) * 01/05 On High Flow Oxygen Status: Chronic History of Gastritis Assessment and Plan: * Pepcid 20mg PO daily was increased to 20 mg PO BID (01/06/17) Status: Chronic Diabetes managed as type 2 Assessment and Plan: * Continue home meds: Glipizide 10 mg daily * daily Accuchecks QAC and HS * Gecpvxqgnpi2m: 6.1 * Lantus 10 Units SC HS * Regular Insulin 12 Units AC Meals Status: Chronic Hypothyroidism Status: Chronic * TSH: 4.84 * Levothyroxine 75mcg/day Status: Chronic Hepatitis Assessment and Plan: * RUQ pain will f/u Amylase, lipase which are normal * LFTs are normal Status: Chronic History of back pain Assessment and Plan: * held Magnesium oxide 400 mg BID * Tramadol 25 mg 1 tablet Q6hr for break through pain ordered 01/02 * On Lidoderm patch * likely secondary to lytic lesion likely secondary to Multiple Myeloma Status: Acute Lower extremity pain Assessment and Plan: * Held Magnesium oxide 400 mg BID; Tramadol-Acetaminophen 32.5-325 mg 2 tablets Q6hr Status: Acute Prophylactic measure Assessment and Plan: * DVT: SCDs b/l; heparin 5000 units subq12- HELD DUE TO THROMBOCYTOPENIA * GI: Pepcid 20mg PO- HELD DUE TO THROMBOCYTOPENIA * Monitor intake and output * Daily Weight * PT/OT eval- LTAC Status: Acute
[2017-01-09] MEDS: Albuterol-Ipratrop 3 mg / 0.5 (3 ml) UD INH SCH ×4 (01:46→19:22)
[2017-01-09] MEDS: Levothyroxine 75 MCG TAB PO SCH (05:43)
[2017-01-09 07:31] LABS: BILIRUBIN,TOTAL 0.4 mg/dL (0.2-1.3); MAGNESIUM 1.9 mg/dL (1.6-2.3); POTASSIUM 4.4 mmol/L (3.6-5.2)
[2017-01-09 07:32] LABS: BASO % 0.1 % (0.0-2.0); EOS # 0.1 K/uL (0.0-0.7); EOS % 0.6 % (0.0-4.0); LYMPH # 0.5 K/uL (1.0-4.3); LYMPH % 3.1 % (20.0-40.0); MEAN CORPUSCULAR HEMOGLOBIN 30.2 pg (27.0-31.0); MEAN CORPUSCULAR HGB CONC 33.2 g/dL (33.0-37.0); MEAN PLATELET VOLUME 10.6 fL (7.2-11.7); MONO # 0.3 K/uL (0.0-0.8); MONO % 2.2 % (0.0-10.0); PLATELET COUNT 70 K/uL (130-400); RED CELL DISTRIBUTION WIDTH 15.5 % (11.5-14.5); WHITE BLOOD COUNT 14.8 K/uL (4.8-10.8)
[2017-01-09 08:40] LABS: NEUTROPHIL 95 % (50-75); TOTAL CELLS COUNTED 100
[2017-01-09] MEDS: (Novolin R) Insulin Human Regular 100 units/ml vial SC SCH ×3 (08:46→16:30)
[2017-01-09 08:55] LABS: ALB/GLOB RATIO 1.4 (1.0-2.1)
[2017-01-09 09:00] LABS: CALCIUM 5.8 mg/dl (8.6-10.4)
[2017-01-09] MEDS: Tmp-Smz 400 mg-80 mg SS Tab PO SCH (11:39)
[2017-01-09] MEDS: Lidocaine 5% Patch TD SCH (11:40)
[2017-01-09] MEDS: Docusate-Senna 50 mg-8.6 mg Tab PO SCH (11:41)
--- NOTE | 2017-01-09 11:59 | CP.PCM.DIS ---
<Ese Hermosillo - Last Filed: 01/09/17 15:10> Provider - Provider Date of Admission: 12/25/16 15:42 Attending physician: Nika Junior DO Consults: Cardio: Dr. Little Surgery: Dr. Ontiveros Heme/Onc: Dr. Martinez ID: Dr. [email or web address] Nephro: Dr. Bill Pulm: Dr. Kessler Time Spent in preparation of Discharge (in minutes): 55 Hospital Course - Lab Results Lab Results: Micro Results 01/07/17 13:00 Naris MRSA Culture - Final MRSA NOT DETECTED 12/29/16 20:30 Blood Blood Culture - Final NO GROWTH AFTER 5 DAYS 12/29/16 20:30 Blood Gram Stain - Final TEST NOT PERFORMED 12/29/16 20:00 Blood Blood Culture - Final NO GROWTH AFTER 5 DAYS 12/29/16 20:00 Blood Gram Stain - Final TEST NOT PERFORMED 12/25/16 15:45 Blood Blood Culture - Final NO GROWTH AFTER 5 DAYS 12/25/16 15:45 Blood Gram Stain - Final 12/25/16 16:10 Blood Blood Culture - Final NO GROWTH AFTER 5 DAYS 12/25/16 16:10 Blood Gram Stain - Final 12/25/16 Unknown Urine Urine Culture - Final No Growth (<1,000 CFU/ML) Most Recent Lab Values WBC 14.8 K/uL (4.8-10.8) H 01/09/17 07:02 RBC 2.97 Mil/uL (3.80-5.20) L 01/09/17 07:02 Hgb 9.0 g/dL (11.0-16.0) L 01/09/17 07:02 Hct 27.0 % (34.0-47.0) L 01/09/17 07:02 MCV 91.0 fL (81.0-99.0) 01/09/17 07:02 MCH 30.2 pg (27.0-31.0) 01/09/17 07:02 MCHC 33.2 g/dL (33.0-37.0) 01/09/17 07:02 RDW 15.5 % (11.5-14.5) H 01/09/17 07:02 Plt Count 70 K/uL (130-400) L 01/09/17 07:02 MPV 10.6 fL (7.2-11.7) 01/09/17 07:02 Neut % (Auto) 94.0 % (50.0-75.0) H 01/09/17 07:02 Lymph % (Auto) 3.1 % (20.0-40.0) L 01/09/17 07:02 [place] % (Auto) 2.2 % (0.0-10.0) 01/09/17 07:02 Eos % (Auto) 0.6 % (0.0-4.0) 01/09/17 07:02 Baso % (Auto) 0.1 % (0.0-2.0) 01/09/17 07:02 Neut # 14.0 K/uL (1.8-7.0) H 01/09/17 07:02 Lymph # 0.5 K/uL (1.0-4.3) L 01/09/17 07:02 [place] # 0.3 K/uL (0.0-0.8) 01/09/17 07:02 Eos # 0.1 K/uL (0.0-0.7) 01/09/17 07:02 Baso # 0.0 K/uL (0.0-0.2) 01/09/17 07:02 Neutrophils % (Manual) 95 % (50-75) H 01/09/17 07:02 Band Neutrophils % 1 % (0-2) 01/07/17 06:26 Lymphocytes % (Manual) 4 % (20-40) L 01/09/17 07:02 Monocytes % (Manual) 1 % (0-10) 01/09/17 07:02 Eosinophils % (Manual) 2 % (0-4) 12/27/16 06:43 Basophils % (Manual) 1 % (0-2) 12/26/16 08:05 Nucleated RBC % 1 % (0-0) H 12/28/16 06:02 Toxic Granulation Present 01/07/17 06:26 Platelet Estimate Decreased (NORMAL) L 01/09/17 07:02 Large Platelets Present 01/07/17 06:26 Giant Platelets Present 01/07/17 06:26 Polychromasia Slight 01/07/17 06:26 Hypochromasia (manual) Slight 01/07/17 06:26 Poikilocytosis (manual Slight 01/05/17 06:26 Basophilic Stippling Slight 01/06/17 06:44 Anisocytosis (manual) Slight 01/09/17 07:02 Microcytosis (manual) Slight 01/03/17 06:12 Macrocytosis (manual) Slight 12/31/16 06:19 Target Cells Slight 01/05/17 06:26 Tear Drop Cells Slight 01/02/17 06:19 Ovalocytes Slight 01/03/17 06:12 PT 13.1 SECONDS (9.7-12.2) H 12/26/16 08:05 INR 1.2 12/26/16 08:05 APTT 27 SECONDS (21-34) 01/01/17 06:00 Puncture Site Rra 01/04/17 16:50 pCO2 37 mm/Hg (35-45) 01/04/17 16:50 pO2 122 mm/Hg (80-100) H 01/04/17 16:50 HCO3 25.2 mmol/L (21-28) 01/04/17 16:50 ABG pH 7.43 (7.35-7.45) 01/04/17 16:50 ABG Total CO2 25.7 mmol/L (22-28) 01/04/17 16:50 ABG O2 Saturation 98.9 % (95-98) H 01/04/17 16:50 ABG Base Excess 0.4 mmol/L (-2.0-3.0) 01/04/17 16:50 ABG Hemoglobin 11.1 g/dL (11.7-17.4) L 01/04/17 16:50 ABG Carboxyhemoglobin 1.3 % (0.5-1.5) 01/04/17 16:50 POC ABG HHb (Measured) 1.1 % (0.0-5.0) 01/04/17 16:50 ABG Methemoglobin 1.4 % (0.0-3.0) 01/04/17 16:50 Walt Test Pos 01/04/17 16:50 A-a O2 Difference 545.0 mm/Hg 01/04/17 16:50 Respiratory Index 4.5 01/04/17 16:50 Hgb O2 Saturation 96.1 % (95.0-98.0) 01/04/17 16:50 Liter Flow 40.0 12/31/16 00:13 Vent Mode Hi flow 12/31/16 00:13 FiO2 100.0 % 01/04/17 16:50 Crit Value Called To Dr posadas 12/31/16 00:13 Crit Value Called By Betzy bonilla rt 12/31/16 00:13 Crit Value Read Back Y 12/31/16 00:13 Blood Gas Notified Time 28 12/31/16 00:13 Sodium 127 mmol/L (132-148) L 01/09/17 07:02 Potassium 4.4 mmol/L (3.6-5.2) 01/09/17 07:02 Chloride 90 mmol/L (98-107) L 01/09/17 07:02 Carbon Dioxide 22 mmol/L (22-30) 01/09/17 07:02 Anion Gap 19 (10-20) 01/09/17 07:02 BUN 75 mg/dL (7-17) H 01/09/17 07:02 Creatinine 6.7 MG/DL (0.7-1.2) H 01/09/17 07:02 Est GFR ( Amer) 7 01/09/17 07:02 Est GFR (Non-Af Amer) 6 01/09/17 07:02 POC Glucose (mg/dL) 200 mg/dL (65-110) H 01/09/17 11:10 Random Glucose 58 mg/dL (65-105) L 01/09/17 07:02 Hemoglobin A1c 6.1 % (4.2-6.5) 12/27/16 06:43 Calcium 5.8 mg/dl (8.6-10.4) L* 01/09/17 07:02 Ionized Calcium 6.7 mg/dL (4.80-5.60) H 12/26/16 13:56 Phosphorus 5.0 mg/dL (2.5-4.5) H 01/09/17 07:02 Magnesium 1.9 mg/dL (1.6-2.3) 01/09/17 07:02 Ferritin 685.0 ng/mL 12/27/16 06:43 Total Bilirubin 0.4 mg/dL (0.2-1.3) 01/09/17 07:02 AST 12 U/L (14-36) L 01/09/17 07:02 ALT 24 U/L (9-52) 01/09/17 07:02 Alkaline Phosphatase 50 U/L (38-126) 01/09/17 07:02 Lactate Dehydrogenase 1522 U/L (313-618) H 01/01/17 14:00 Troponin I 0.0760 ng/mL (0.00-0.120) 12/25/16 13:53 NT-Pro-B Natriuret Pep 66045 pg/mL (0-900) H 12/25/16 13:53 Total Protein 5.0 g/dL (6.3-8.3) L 01/09/17 07:02 Total Protein (PEP) 5.8 g/dL (6.1-8.1) L 12/25/16 21:39 Albumin 2.9 g/dL (3.5-5.0) L 01/09/17 07:02 Albumin (PEP) 3.0 g/dL (3.8-4.8) L 12/25/16 21:39 Globulin 2.1 gm/dL (2.2-3.9) L 01/09/17 07:02 Albumin/Globulin Ratio 1.4 (1.0-2.1) 01/09/17 07:02 Qulrf-1-Unyhrzcqj 3.8 Relative % 12/27/16 07:25 Bvece-7-Yldfdmmqd 5.7 Relative % 12/27/16 07:25 Beta Globulins 6.1 Relative % 12/27/16 07:25 Nddh-5-Delpluby 0.3 g/dL (0.4-0.6) L 12/25/16 21:39 Wpja-1-Xjbnvtad 0.3 g/dL (0.2-0.5) 12/25/16 21:39 Ytsd-7-Gaeakkvdcxbxw 44.80 mg/L (<or= 2.51) H 12/25/16 21:39 Gamma Globulins 71.5 Relative % 12/27/16 07:25 Abnorm Protein Band 1 0.23 g/dL (None Detected) H 12/25/16 21:39 Abnorm Protein Band 2 TEST NOT PERFORMED 12/25/16 21:39 Abnorm Protein Band 3 TEST NOT PERFORMED 12/25/16 21:39 Triglycerides 163 mg/dL (0-149) H D 12/31/16 06:19 Cholesterol 104 mg/dL (0-199) 12/31/16 06:19 LDL Cholesterol Direct 60 mg/dL (0-129) 12/31/16 06:19 HDL Cholesterol 28 mg/dL (30-70) L 12/31/16 06:19 Amylase 74 U/L (30-110) 12/25/16 16:20 Lipase 58 U/L (23-300) 12/25/16 16:20 Angiotensin Convert Enz 28 U/L (9-67) 12/26/16 13:56 25-OH Vitamin D Total 66.6 NG/ML (30.0-100.0) 12/26/16 13:56 Procalcitonin 0.22 NG/ML (0.19-0.49) 12/27/16 09:16 TSH 3rd Generation 4.84 mIU/L (0.46-4.68) H 12/29/16 06:16 PTH Intact Whole Molec 11 pg/mL (14-64) L 12/27/16 08:16 PTH Related Protein 51 pg/mL (14-27) H 12/27/16 08:16 Urine Color Yellow (YELLOW) 12/25/16 16:14 Urine Clarity Turbid (Clear) 12/25/16 16:14 Urine pH 5.0 (5.0-8.0) 12/25/16 16:14 Ur Specific Lilly 1.010 (1.003-1.030) 12/25/16 16:14 Urine Protein 1+ mg/dL (NEGATIVE) H 12/25/16 16:14 Urine Glucose (UA) Normal mg/dL (Normal) 12/25/16 16:14 Urine Ketones Negative mg/dL (NEGATIVE) 12/25/16 16:14 Urine Blood 1+ (NEGATIVE) H 12/25/16 16:14 Urine Nitrate Negative (NEGATIVE) 12/25/16 16:14 Urine Bilirubin Negative (NEGATIVE) 12/25/16 16:14 Urine Urobilinogen Normal mg/dL (0.2-1.0) 12/25/16 16:14 Ur Leukocyte Esterase 3+ Roman/uL (Negative) H 12/25/16 16:14 Urine WBC (Auto) 157 /hpf (0-5) H 12/25/16 16:14 Urine RBC (Auto) 13 /hpf (0-3) H 12/25/16 16:14 Ur Squamous Epith Cells 4 /hpf (0-5) 12/25/16 16:14 Amorphous Sediment Rare /ul (<OCC) H 12/25/16 16:14 Hyaline Casts 3-5 /lpf (0-2) H 12/25/16 16:14 Urine Creatinine 0.70 g/L 12/27/16 07:25 Ur Creatinine 24 Hour 0.59 g/24 h (0.63-2.50) L 12/27/16 07:25 Ur Total Protein 24 Hr 2108 mg/24 h (<150) H 12/27/16 07:25 Protein/Creat Ratio 24h 3553 mg/g creat (</=84) H 12/27/16 07:25 Urine Total Protein 2480 mg/L (50-240) H 12/27/16 07:25 Urine Albumin (PEP) 13.0 Relative % 12/27/16 07:25 Ur Protein Fractions See note 12/27/16 07:25 Stool Occult Blood Negative (NEGATIVE) 12/25/16 14:33 SEUN & SPEP Interp See note 12/25/16 21:39 Serum Immunofixation Detected (Not Detected) H 12/25/16 21:39 Free [employer] Light Chains 17.5 mg/L (3.3-19.4) 12/25/16 09:27 Free Lambda Light Chain 49920.7 mg/L (5.7-26.3) H 12/25/16 09:27 Free [employer]/Lambda Ratio <0.01 (0.26-1.65) L 12/25/16 09:27 Hep Bs Antigen Negative (NEGATIVE) 12/26/16 14:22 Hep Bs Antibody Negative (NEGATIVE) 12/26/16 14:22 Hep B Core IgM Ab Negative (NEGATIVE) 12/26/16 14:22 Hepatitis C Antibody Reactive (NEGATIVE) 12/26/16 14:22 HIV 1&2 Antibody Screen Negative (NEGATIVE) 12/27/16 06:43 Ur L.pneumophila Ag Negative (NEGATIVE) 12/25/16 08:30 Mycoplasma pneumon IgM Negative (NEGATIVE) 12/25/16 08:30 Blood Type B POSITIVE 01/01/17 11:31 Antibody Screen Negative 01/01/17 11:31 - Hospital Course Hospital Course: Upon Admission: CC: SOB since this morning HPI: Patient is a 81 year old female with PMHx of CHF, A-Fib, HTN, Anemia, DM, hypothyroidism, Gastritis, Hepatitis C (treated) presenting with SOB with associated left shoulder pain that started this morning. She also reports having right flank pain that has been present for 1 month. Patient is present with her brother who has provided the majority of the history. Patient denies any alleviating factors. She admits to nausea and vomiting which is chronic in nature. Emesis is non-bloody, non bilious and is the consistency of food. She admits to headaches, shakiness, and weakness which started today when she noticed that her "blood was low". She also reports coughing with sputum of "dark " color. She admits to "foamy urine" and dysuria that occurs occasionally but is present today. She admits to constipation which she attributes to her Ferrous sulfate medication, last BM was 3 days ago. She denies fevers, chest pain, palpitations, or hematuria. PMD: Dr. Winkler PMHx: CHF, A-Fib, HTN, Anemia, DM, hypothyroidism, Gastritis, Hepatitis C ( treated) PSH: Breast lipoma removal, EGD, Laparoscopic Enteroscopy in 2017 revealing gastritis and hiatal hernia but no bleeding Allergies: denies Social Hx: Former smoker- smoked 5 cigarettes per day for 5 years, quit 40 years ago. Denies alcohol and drugs. Lives with brother. Family Hx: Mother- Stroke in her 80s. Sister- colon cancer at 81 years old. Brother-pancreatic cancer at 85 years old. Medications: Ferrous Sulfate 325 mg daily, Levothyroxine 75 mcg PO daily, Budesonide 90 micrograms 1 puff Q12H, Amiodarone 200mg PO daily, Diltiazem ER 240mg PO daily, Glipizide 10mg PO daily, Anoro Ellipta 1 puff daily, Omeprazole , 20mg PO daily, Furosemide 40mg daily, Lidoderm path 5% daily, magnesium oxide 400 mg BID, Tramadol/Acetaminophen 32.5- 325 2 tabs Q6HR Patient Services Assistant: Dr. Lynch GI: Dr. Ferro Nephro: Dr. Bill Throughout Hospital Course: Patient had left chest Port Cath placed on 01/03/17 and had bone marrow biopsy on the same day. She was started on Chemotherapy by Dr. Martinez for treatment of likely Multiple Myeloma on 01/04/17 with next treatment planned for 01/11/17. Bone Marrow Biopsy pathology report is pending. The hope is the chemotherapy will help with her respiratory status. She is currently on HiFlow Oxygen. She had episode of Atrial Fibrillation on 01/04/17 S/P HD. She was placed on Amiodarone Drip which was then discontinued on 01/05/17 evening and started on Lopressor 25 mg PO BID and has been rate controlled. Patient is to be transferred to [facility], continue chemotherapy as noted by Dr. Martinez - Chemotherapy orders are listed in the patient's physical chart. They are as follows: Velcade 2.3mg IVPB in 50ml NS over 30 min, Day 1, 8,15,22 and Cytoxan 500m IV in 250mL NS over 1 hr Day 1, 8. She is to follow up with him within 1-2 weeks. Patient is to continue HD on TTS schedule. After speaking with the patient's brother, he is agreeable to [facility]. (1) Acute Respiratory Distress Assessment and Plan: * Pulmonary (Dr. Kessler) on board-->help appreciated * Patient has history of COPD per pulmonary * Patient requires max oxygen support per ICU * CT Chest (12/31): interval worsening of nonspecific ground glass opacities in the lungs since the previous exam. Interstitial septal thickening and crazy paving appearance of the lungs. Mild cardiomegaly. Small left pleural effusion. Diffuse lytic bone lesion consistent with multiple myeloma * Solumedrol 40mg IV Q 8 hours was stopped 01/05 * Will need BAL/Bronch to see if patient has invasive myeloma to the lung-->ICU has discussed with patient's pulm 12/31-->patient is high risk of BAL/Bronch given severe hypoxemia 01/01 note * on high flow oxygen (2) Fluid Overload Assessment and Plan: * ProBNP : 58751 * Contributing factors: acute on chronic kidney disease and hx of diastolic congestive heart failure * Vascular Surgery: Dr. Ontiveros-->notified by emergency room; for emergent dialysis access * Nephrology: Dr Bill on board-->acute on chronic kidney insufficiency, hypercalcemia; emergent dialysis * Chest Xray (12/25/16): prominent diffuse increased interstital lung markings throughout both lungs suggestive for edema and/or infiltrate * Chest Xray (12/27/16): persistent prominent diffuse increased consolidative changes throughtout both lungs with coarse reticular interstital airspce opacities. More focal confluent airspace consolidative changes in the right right midlung zone and left lung base with small left plueral effusion. Cardiomegaly * Echocardiogram (12/27/16) moderate left ventricular diastolic dysfunction. left atrium is moderately dilated. right atrium is mildly dilated, mitral annular calcification is moderate. mitral velve is calcified and displays decreased opening. Mild mitral valve stenosis. severe pulmonary hypertension., EF: 60% * Monitor intake output * Daily weights * 12/27/16: 2nd dialysis session today--> 2 liters removed * 12/28/16: Spoke with Dr. Bill-->dialysis for tomorrow; pending chest xray read * 12/29/16: stable heterogenous infiltrates are seen diffusely bilaterally and are unchanged compared to 12/28/16 prominent cardiac silhouteete is stable. Fractures at the left 3rd, 6th, and 9th ribs identified at latter stage of healing * 12/30/16: Had dialysis today * 12/31/16: Dialysis not improving lung exam * 01/03/17: Chest X Ray shows mild pulmonary congestion (3) Acute kidney injury superimposed on chronic kidney disease Assessment and Plan: * Nephrology Dr. Bill consulted-->help appreciated * Hepatitis panel: Negative * HIV: negative * Mycoplasma Igm: negative * Legionella; Negative * Vascular Surgery: Dr. Ontiveros-->help appreciated * Surgery consulted; tunneled dialysis catheter placed 12/25; completed two sessions of dialysis * Heme-Oncology: Dr Martinez-->help appreciated * patient has light chain multiple myeloma * Recommended for SPEP, IPEP--->detected; M-spike * free light chain lambda: 514653.7 * free light chain kappa: 17.5 * 24 hr urine UPEP-->resulting--> 2108 (high) * beta2 microglobulin * LDH: 522 * Prior SPEP: (12/02/16): M Adarsh migrating in the gamma globulin region; 12/25 : M spike * Chemotherapy-->first session on 01/04/17 * Bone marrow biopsy-->wont be available until , 01/11/17 * 12/25 Urinanalysis: +leuk esterase, 2+ protein, + Wbc and + RBC * urine culture: no growth (<1000 CFU/ml) * Ct Abdomen/Pelvis (12/25/16): No evidence of nephrolithiasis or hydronephrosis , 1,5 cm exophyitc high attentuation lesion at the mid to lower pole of right kidney. possibility of renal cell carcinoma should be excluded. 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 Airspace consolidation at left lobe associated with small pleural fussion suspicious for pneumonia * On HD through Right Chest Perma Cath Status: Acute (4) Multiple Myeloma Assessment and Plan: * Criteria: anemia, renal insufficiency, hypercalcemia * Nephrology Dr. Bill consulted-->help appreciated * Vascular Surgery: Dr. Ontiveros-->help appreciated * Surgery consulted and permacath placed * Heme-Oncology: Dr Martinez-->help appreciated * patient has light chain multiple myeloma * Recommended for SPEP, IPEP--->detected; M-spike * free light chain lambda: 309560.7 * free light chain kappa: 17.5 * 24 hr urine UPEP-->resulting--> 2108 (high) * beta2 microglobulin * LDH: 522 * Prior SPEP: (12/02/16): M Adarsh migrating in the gamma globulin region; 12/25 : M spike * Chemotherapy-->first session on 01/04/17 - Bortezomib 2.3mg IV X1 - Cyclophosphamide 500mg IVX1 - Dexamethasone 20mg IV X1 * Echocardiogram (12/27/16) moderate left ventricular diastolic dysfunction. left atrium is moderately dilated. right atrium is mildly dilated, mitral annular calcification is moderate. mitral valve is calcified and displays decreased opening. Mild mitral valve stenosis. severe pulmonary hypertension., EF: 60% * Monitor intake output * BUN/Cr elevated today: 90/7.7 * 12/25 Urinanalysis: +leuk esterase, 2+ protein, + Wbc and + RBC * urine culture: no growth (<1000 CFU/ml) * Ct Abdomen/Pelvis (12/25/16): No evidence of nephrolithiasis or hydronephrosis , 1,5 cm exophyitc high attentuation lesion at the mid to lower pole of right kidney. possibility of renal cell carcnioma should be excluded. 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 Airspace consolidation at left lobe associated with small pleural fussion suspicious for pneumonia * Chest xray w rib (12/29/16): stable heterogenous infiltrates are seen diffusely bilaterally and are unchanged compared to 12/28/16 prominent cardiac silhouette is stable. Fractures at the left 3rd, 6th, and 9th ribs identified at latter stage of healing * 12/30: Heme-onc unable to do bone marrow biopsy because of patient's shortness of breathe; reports does not need bone marrow biopsy at this time; recommend for port a cath * 12/31: given possibility of invasive myeloma to the lung; may need bronch/bal for diagnosis * 01/03: patient had Angela Cath placed on Left Chest and had Bone Marrow Biopsy by Dr. Martinez * 01/04: Pathology report on Bone Marrow Bx is pending and patient started on Chemo after HD with next planned 1 week from today * 01/08: pending report from bone marrow biopsy likely to be available , 01/11/17; patient referred to subacute rehab Status: Acute (5) Hypercalcemia Assessment and Plan: * Likely secondary to Multiple Myeloma, see workup under Multiple Myeloma * Nephrology (Dr. Bill) on board-->help appreciated * Heme-onc (Dr. Martinez) on board--->help appreciated * PTH related Protein: 51 * PTH intact: 14 * Vitamin D: 66.6 * ОЛЕГ: 28 * Ionized Calcium: 6.7 * Possible patient has light chain multiple myeloma Status: (6) Possible CHF exacerbation Assessment and Plan: * History of diastolic congestive heart failure * Cardiology (Dr. Little) on consult; covering for Dr. Lynch's patients * ProBNP: 48626 * Echocardiogram (12/27/16) moderate left ventricular diastolic dysfunction. left atrium is moderately dilated. right atrium is mildly dilated, mitral annular calcification is moderate. mitral valve is calcified and displays decreased opening. Mild mitral valve stenosis. severe pulmonary hypertension., EF: 60% * monitor intake and output * Patient has acute renal failure unable to start ARB/ОЛЕГ * Lopressor 25mg PO BID * Crestor 5mg POqHS * Daily Weights Status: Acute (7) Anemia Assessment and Plan: * Heme-onc (Dr. Martinez) on board-->help appreciated * Discussed with PMD: Dr. Winkler-->patient has had workup including GI workup in 2017 in regards to anemia * Thought to be chronic secondary to kidney disease; anemia of critical disease * Continue home meds Ferrous sulfate 325 mg daily * s/p unit of PRBC during hospitalization * 12/25 stool occult blood: negative * Prior hospitalizations included in patient's chart; awaiting copy of report of GI workup * HgB/Hct stable Status: Chronic (8) Atrial fibrillation Assessment and Plan: * Cardiology (Dr. Little) covering for Dr. Lynch's patients * Continue home meds: Amiodarone 200 mg daily, Cardizem 240 mg daily * Patient is not on anticoagulation secondary to anemia * CHADS: 4 (DM, Age, HTN, CHF) * HASBLED:2 (Age and Renal Disease) * 01/04: had episode of rapid AF after HD. Was given Amiodarone 150 mg over 10 minutes and the rate was controlled but then had to be placed on Amiodarone Drip * 01/05: Discontinued Amiodarone Drip at 6:40 PM as she is rate controlled and started Lopressor 25 mg PO BID * 01/06: Better rate controlled; c/w Lopressor Status: Acute (9) HTN (hypertension) Assessment and Plan: * Monitor vital signs * Patient is on dialysis secondary to MARIA EUGENIA secondary to Multiple Myeloma Status: Chronic (10) Leukocytosis Assessment and Plan: * In the ED, order for dose of Zosyn and Vancomycin on 12/25 * Strep, legionella: negative and mycoplasma IgM: negative * Patient recently at the hospital within 90 days-->consideration for possible hospital acquired pneumonia * Patient does not meet sepsis critera (04/19: leukocytosis) * Start Zosyn 2.25 gr IV Q8H (active since 12/25/16) and Doxcycline 100mg IV Q 12hours (active since 12/25/16 through 01/04/17) * Blood Culture (12/25/16): no growth after 5 days X 2 * Urine culture (12/25/16): <1000 * Procalcitonin low * Blood Culture (12/29/16): no growth after 3 days x 2 * Solumedrol 40mg IV Q 8 hours per pulmonary (12/27/16 through 01/04/17); Decadron IV 01/04 for chemo * 01/02: currently on Zozyn 2.25 gm IV Q8H (12/25/16) and Bactrim DS 2 tab PO Q24 H (01/02/17: to cover for PCP) * 01/03: started on Zovirax 400 mg PO 1x/day by Heme/Onc Dr. 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) Assessment and Plan: * Consult: Dr Kessler (pulmonary fibrosis) on board * continue home meds: Pulmicort Flexhaler 90 mcg INH RQ12hr * Solumedrol 40mg IV Q 8 hours (12/27/16 through 01/04/17) * 01/05 On High Flow Oxygen Status: Chronic (12) History of Gastritis Assessment and Plan: * Pepcid 20mg PO daily was increased to 20 mg PO BID (01/06/17) Status: Chronic (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 Assessment and Plan: * Continue home meds: Glipizide 10 mg daily * daily Accuchecks QAC and HS * Wlztywcfrwg6g: 6.1 * Lantus 10 Units SC HS * Regular Insulin 12 Units AC Meals Status: Chronic (14) Hypothyroidism Status: Chronic * TSH: 4.84 * Levothyroxine 75mcg/day Status: Chronic (15) Hepatitis Assessment and Plan: * RUQ pain will f/u Amylase, lipase which are normal * LFTs are normal * GI outpatient: [place]; previously treated Hepatitis C Status: Chronic (16) History of back pain Assessment and Plan: * held Magnesium oxide 400 mg BID * Tramadol 25 mg 1 tablet Q6hr for break through pain ordered 01/02 * On Lidoderm patch * likely secondary to lytic lesion likely secondary to Multiple Myeloma Status: Acute (17) Lower extremity pain Assessment and Plan: * Held Magnesium oxide 400 mg BID; Tramadol-Acetaminophen 32.5-325 mg 2 tablets Q6hr Status: Acute (18) Thrombocytopenia * held heparin * ordered for HIT antibiotics * Possible effect from Bactrim SE? Status: Acute (19) Prophylactic measure Assessment and Plan: * DVT: SCDs b/l; d/c heparin 5000 units subq12 secondary to thrombocytopenia * GI: Pepcid 20mg PO was increased to 20 mg PO BID (01/06/17) * Monitor intake and output * Daily Weight * PT/OT eval Status: Acute This is a short summary of the patient's hospital course, please review EMR. Discharge Exam - Head Exam Head Exam: NORMAL INSPECTION, NORMOCEPHALIC - Eye Exam Eye Exam: EOMI, Normal appearance, PERRL Pupil Exam: NORMAL ACCOMODATION - Respiratory Exam Respiratory Exam: Decreased Breath Sounds, NORMAL BREATHING PATTERN - Cardiovascular Exam Cardiovascular Exam: REGULAR RHYTHM - GI/Abdominal Exam GI & Abdominal Exam: Normal Bowel Sounds, Soft. absent: Distended, Tenderness - Extremities Exam Extremities exam: normal inspection, pedal pulses present - Neurological Exam Neurological exam: Alert, Oriented x3 - Psychiatric Exam Psychiatric exam: Normal Affect, Normal Mood - Skin Skin Exam: Dry, Intact, Normal Color, Warm Discharge Plan - Follow Up Plan Condition: STABLE Disposition: REHAB FACILITY/REHAB UNIT Instructions: Heart Failure (DC), Acute Kidney Injury (DC), Hypercalcemia (DC) Additional Instructions: Patient is to continue medications as reconciled on discharge. Patient is safe for discharge to [facility]. Patient is to follow up with Dr. Martinez within 1 - 2 weeks to establish care and continue chemotherapy treatment. Chemotherapy orders are listed in the patient' s physical chart. They are as follows: Velcade 2.3mg IVPB in 50ml NS over 30 min , Day 1, 8,15,22 and Cytoxan 500m IV in 250mL NS over 1 hr Day 1, 8 Patient is to continue dialysis TTS schedule. Please return to the ED if your symptoms worsen or return. Referrals: Kathleen Martinez MD [Staff Provider] - <Nika Junior V - Last Filed: 01/11/17 01:13> Provider - Provider Date of Admission: 12/25/16 15:42 Attending physician: Nika Junior DO Hospital Course - Lab Results Lab Results: Micro Results 01/07/17 13:00 Naris MRSA Culture - Final MRSA NOT DETECTED 12/29/16 20:30 Blood Blood Culture - Final NO GROWTH AFTER 5 DAYS 12/29/16 20:30 Blood Gram Stain - Final TEST NOT PERFORMED 12/29/16 20:00 Blood Blood Culture - Final NO GROWTH AFTER 5 DAYS 12/29/16 20:00 Blood Gram Stain - Final TEST NOT PERFORMED 12/25/16 15:45 Blood Blood Culture - Final NO GROWTH AFTER 5 DAYS 12/25/16 15:45 Blood Gram Stain - Final 12/25/16 16:10 Blood Blood Culture - Final NO GROWTH AFTER 5 DAYS 12/25/16 16:10 Blood Gram Stain - Final 12/25/16 Unknown Urine Urine Culture - Final No Growth (<1,000 CFU/ML) Most Recent Lab Values WBC 14.8 K/uL (4.8-10.8) H 01/09/17 07:02 RBC 2.97 Mil/uL (3.80-5.20) L 01/09/17 07:02 Hgb 9.0 g/dL (11.0-16.0) L 01/09/17 07:02 Hct 27.0 % (34.0-47.0) L 01/09/17 07:02 MCV 91.0 fL (81.0-99.0) 01/09/17 07:02 MCH 30.2 pg (27.0-31.0) 01/09/17 07:02 MCHC 33.2 g/dL (33.0-37.0) 01/09/17 07:02 RDW 15.5 % (11.5-14.5) H 01/09/17 07:02 Plt Count 70 K/uL (130-400) L 01/09/17 07:02 MPV 10.6 fL (7.2-11.7) 01/09/17 07:02 Neut % (Auto) 94.0 % (50.0-75.0) H 01/09/17 07:02 Lymph % (Auto) 3.1 % (20.0-40.0) L 01/09/17 07:02 [place] % (Auto) 2.2 % (0.0-10.0) 01/09/17 07:02 Eos % (Auto) 0.6 % (0.0-4.0) 01/09/17 07:02 Baso % (Auto) 0.1 % (0.0-2.0) 01/09/17 07:02 Neut # 14.0 K/uL (1.8-7.0) H 01/09/17 07:02 Lymph # 0.5 K/uL (1.0-4.3) L 01/09/17 07:02 [place] # 0.3 K/uL (0.0-0.8) 01/09/17 07:02 Eos # 0.1 K/uL (0.0-0.7) 01/09/17 07:02 Baso # 0.0 K/uL (0.0-0.2) 01/09/17 07:02 Neutrophils % (Manual) 95 % (50-75) H 01/09/17 07:02 Band Neutrophils % 1 % (0-2) 01/07/17 06:26 Lymphocytes % (Manual) 4 % (20-40) L 01/09/17 07:02 Monocytes % (Manual) 1 % (0-10) 01/09/17 07:02 Eosinophils % (Manual) 2 % (0-4) 12/27/16 06:43 Basophils % (Manual) 1 % (0-2) 12/26/16 08:05 Nucleated RBC % 1 % (0-0) H 12/28/16 06:02 Toxic Granulation Present 01/07/17 06:26 Platelet Estimate Decreased (NORMAL) L 01/09/17 07:02 Large Platelets Present 01/07/17 06:26 Giant Platelets Present 01/07/17 06:26 Polychromasia Slight 01/07/17 06:26 Hypochromasia (manual) Slight 01/07/17 06:26 Poikilocytosis (manual Slight 01/05/17 06:26 Basophilic Stippling Slight 01/06/17 06:44 Anisocytosis (manual) Slight 01/09/17 07:02 Microcytosis (manual) Slight 01/03/17 06:12 Macrocytosis (manual) Slight 12/31/16 06:19 Target Cells Slight 01/05/17 06:26 Tear Drop Cells Slight 01/02/17 06:19 Ovalocytes Slight 01/03/17 06:12 PT 13.1 SECONDS (9.7-12.2) H 12/26/16 08:05 INR 1.2 12/26/16 08:05 APTT 27 SECONDS (21-34) 01/01/17 06:00 Hep-Lenka Thrombocytopen Negative (Negative) 01/08/17 12:58 Puncture Site Rra 01/04/17 16:50 pCO2 37 mm/Hg (35-45) 01/04/17 16:50 pO2 122 mm/Hg (80-100) H 01/04/17 16:50 HCO3 25.2 mmol/L (21-28) 01/04/17 16:50 ABG pH 7.43 (7.35-7.45) 01/04/17 16:50 ABG Total CO2 25.7 mmol/L (22-28) 01/04/17 16:50 ABG O2 Saturation 98.9 % (95-98) H 01/04/17 16:50 ABG Base Excess 0.4 mmol/L (-2.0-3.0) 01/04/17 16:50 ABG Hemoglobin 11.1 g/dL (11.7-17.4) L 01/04/17 16:50 ABG Carboxyhemoglobin 1.3 % (0.5-1.5) 01/04/17 16:50 POC ABG HHb (Measured) 1.1 % (0.0-5.0) 01/04/17 16:50 ABG Methemoglobin 1.4 % (0.0-3.0) 01/04/17 16:50 Walt Test Pos 01/04/17 16:50 A-a O2 Difference 545.0 mm/Hg 01/04/17 16:50 Respiratory Index 4.5 01/04/17 16:50 Hgb O2 Saturation 96.1 % (95.0-98.0) 01/04/17 16:50 Liter Flow 40.0 12/31/16 00:13 Vent Mode Hi flow 12/31/16 00:13 FiO2 100.0 % 01/04/17 16:50 Crit Value Called To Dr posadas 12/31/16 00:13 Crit Value Called By Betzy bonilla rt 12/31/16 00:13 Crit Value Read Back Y 12/31/16 00:13 Blood Gas Notified Time 28 12/31/16 00:13 Sodium 127 mmol/L (132-148) L 01/09/17 07:02 Potassium 4.4 mmol/L (3.6-5.2) 01/09/17 07:02 Chloride 90 mmol/L (98-107) L 01/09/17 07:02 Carbon Dioxide 22 mmol/L (22-30) 01/09/17 07:02 Anion Gap 19 (10-20) 01/09/17 07:02 BUN 75 mg/dL (7-17) H 01/09/17 07:02 Creatinine 6.7 MG/DL (0.7-1.2) H 01/09/17 07:02 Est GFR ( Amer) 7 01/09/17 07:02 Est GFR (Non-Af Amer) 6 01/09/17 07:02 POC Glucose (mg/dL) 105 mg/dL (65-110) 01/09/17 16:37 Random Glucose 58 mg/dL (65-105) L 01/09/17 07:02 Hemoglobin A1c 6.1 % (4.2-6.5) 12/27/16 06:43 Calcium 5.8 mg/dl (8.6-10.4) L* 01/09/17 07:02 Ionized Calcium 6.7 mg/dL (4.80-5.60) H 12/26/16 13:56 Phosphorus 5.0 mg/dL (2.5-4.5) H 01/09/17 07:02 Magnesium 1.9 mg/dL (1.6-2.3) 01/09/17 07:02 Ferritin 685.0 ng/mL 12/27/16 06:43 Total Bilirubin 0.4 mg/dL (0.2-1.3) 01/09/17 07:02 AST 12 U/L (14-36) L 01/09/17 07:02 ALT 24 U/L (9-52) 01/09/17 07:02 Alkaline Phosphatase 50 U/L (38-126) 01/09/17 07:02 Lactate Dehydrogenase 1522 U/L (313-618) H 01/01/17 14:00 Troponin I 0.0760 ng/mL (0.00-0.120) 12/25/16 13:53 NT-Pro-B Natriuret Pep 41911 pg/mL (0-900) H 12/25/16 13:53 Total Protein 5.0 g/dL (6.3-8.3) L 01/09/17 07:02 Total Protein (PEP) 5.8 g/dL (6.1-8.1) L 12/25/16 21:39 Albumin 2.9 g/dL (3.5-5.0) L 01/09/17 07:02 Albumin (PEP) 3.0 g/dL (3.8-4.8) L 12/25/16 21:39 Globulin 2.1 gm/dL (2.2-3.9) L 01/09/17 07:02 Albumin/Globulin Ratio 1.4 (1.0-2.1) 01/09/17 07:02 Qeilb-1-Pollyrklb 3.8 Relative % 12/27/16 07:25 Kygmu-9-Fgjxusyxy 5.7 Relative % 12/27/16 07:25 Beta Globulins 6.1 Relative % 12/27/16 07:25 Wtkg-2-Wlgjasbj 0.3 g/dL (0.4-0.6) L 12/25/16 21:39 Txdt-8-Qqcipiyr 0.3 g/dL (0.2-0.5) 12/25/16 21:39 Bpwe-8-Lftglzzfypeaa 44.80 mg/L (<or= 2.51) H 12/25/16 21:39 Gamma Globulins 71.5 Relative % 12/27/16 07:25 Abnorm Protein Band 1 0.23 g/dL (None Detected) H 12/25/16 21:39 Abnorm Protein Band 2 TEST NOT PERFORMED 12/25/16 21:39 Abnorm Protein Band 3 TEST NOT PERFORMED 12/25/16 21:39 Triglycerides 163 mg/dL (0-149) H D 12/31/16 06:19 Cholesterol 104 mg/dL (0-199) 12/31/16 06:19 LDL Cholesterol Direct 60 mg/dL (0-129) 12/31/16 06:19 HDL Cholesterol 28 mg/dL (30-70) L 12/31/16 06:19 Amylase 74 U/L (30-110) 12/25/16 16:20 Lipase 58 U/L (23-300) 12/25/16 16:20 Angiotensin Convert Enz 28 U/L (9-67) 12/26/16 13:56 25-OH Vitamin D Total 66.6 NG/ML (30.0-100.0) 12/26/16 13:56 Procalcitonin 0.22 NG/ML (0.19-0.49) 12/27/16 09:16 TSH 3rd Generation 4.84 mIU/L (0.46-4.68) H 12/29/16 06:16 PTH Intact Whole Molec 11 pg/mL (14-64) L 12/27/16 08:16 PTH Related Protein 51 pg/mL (14-27) H 12/27/16 08:16 Urine Color Yellow (YELLOW) 12/25/16 16:14 Urine Clarity Turbid (Clear) 12/25/16 16:14 Urine pH 5.0 (5.0-8.0) 12/25/16 16:14 Ur Specific Lilly 1.010 (1.003-1.030) 12/25/16 16:14 Urine Protein 1+ mg/dL (NEGATIVE) H 12/25/16 16:14 Urine Glucose (UA) Normal mg/dL (Normal) 12/25/16 16:14 Urine Ketones Negative mg/dL (NEGATIVE) 12/25/16 16:14 Urine Blood 1+ (NEGATIVE) H 12/25/16 16:14 Urine Nitrate Negative (NEGATIVE) 12/25/16 16:14 Urine Bilirubin Negative (NEGATIVE) 12/25/16 16:14 Urine Urobilinogen Normal mg/dL (0.2-1.0) 12/25/16 16:14 Ur Leukocyte Esterase 3+ Roman/uL (Negative) H 12/25/16 16:14 Urine WBC (Auto) 157 /hpf (0-5) H 12/25/16 16:14 Urine RBC (Auto) 13 /hpf (0-3) H 12/25/16 16:14 Ur Squamous Epith Cells 4 /hpf (0-5) 12/25/16 16:14 Amorphous Sediment Rare /ul (<OCC) H 12/25/16 16:14 Hyaline Casts 3-5 /lpf (0-2) H 12/25/16 16:14 Urine Creatinine 0.70 g/L 12/27/16 07:25 Ur Creatinine 24 Hour 0.59 g/24 h (0.63-2.50) L 12/27/16 07:25 Ur Total Protein 24 Hr 2108 mg/24 h (<150) H 12/27/16 07:25 Protein/Creat Ratio 24h 3553 mg/g creat (</=84) H 12/27/16 07:25 Urine Total Protein 2480 mg/L (50-240) H 12/27/16 07:25 Urine Albumin (PEP) 13.0 Relative % 12/27/16 07:25 Ur Protein Fractions See note 12/27/16 07:25 Stool Occult Blood Negative (NEGATIVE) 12/25/16 14:33 SEUN & SPEP Interp See note 12/25/16 21:39 Serum Immunofixation Detected (Not Detected) H 12/25/16 21:39 Heparin-induced Plt Ab Negative (Negative) 01/08/17 11:06 Free [employer] Light Chains 17.5 mg/L (3.3-19.4) 12/25/16 09:27 Free Lambda Light Chain 84709.7 mg/L (5.7-26.3) H 12/25/16 09:27 Free [employer]/Lambda Ratio <0.01 (0.26-1.65) L 12/25/16 09:27 Hep Bs Antigen Negative (NEGATIVE) 12/26/16 14:22 Hep Bs Antibody Negative (NEGATIVE) 12/26/16 14:22 Hep B Core IgM Ab Negative (NEGATIVE) 12/26/16 14:22 Hepatitis C Antibody Reactive (NEGATIVE) 12/26/16 14:22 HIV 1&2 Antibody Screen Negative (NEGATIVE) 12/27/16 06:43 Ur L.pneumophila Ag Negative (NEGATIVE) 12/25/16 08:30 Mycoplasma pneumon IgM Negative (NEGATIVE) 12/25/16 08:30 Blood Type B POSITIVE 01/01/17 11:31 Antibody Screen Negative 01/01/17 11:31 Attending/Attestation - Attestation I have personally seen and examined this patient.: Yes I have fully participated in the care of the patient.: Yes I have reviewed all pertinent clinical information, including history, physical exam and plan: Yes Notes (Text): This is late computer entry for 01/09/17. Patient seen, examined, and case discussed with resident during rounds. Patient transferred out from ICU on 01/07/17. Patient comfortable on hiflow oxygen.. Resident f/u bone marrow biopsy will not be available until potentially this . Discussed with heme-onc, this is Multiple Myeloma; will need chemotherapy to be arrange upon discharge. Discussed with Dr. Rios, hospital route process administrator in contact with [facility], LTAC will cover for chemotherapy. Copy of the chemotherapy regimen (in the paper chart) faxed over to the LTAC. LTAC will accomodate for chemotherapy and dialysis. Discussed with heme-onc, who is in agreement given patient is due for her next chemo treatment this upcoming . I endorse to the nurse, that if there is any issue with the chemotherapy, they must call Dr. Martinez for any clarification per his request which she reports she will endorse to report to nurse receiving the patient. Prior to discharge, per request of the patient, resident got in contact with her brother, and agreed for LTAC for his sister. I left a message with Dr. Winkler's answering service, spoke with Dr. Sánchez to inform PMD that patient will be going to LTAC and going for chemotherapy for newly diagnosed multiple myeloma. Discharge Diagnoses: (1) Acute Respiratory Distress Assessment and Plan: * Pulmonary (Dr. Kessler) on board-->help appreciated * Patient has history of COPD per pulmonary * Patient requires max oxygen support per ICU * CT Chest (12/31): interval worsening of nonspecific ground glass opacities in the lungs since the previous exam. Interstitial septal thickening and crazy paving appearance of the lungs. Mild cardiomegaly. Small left pleural effusion. Diffuse lytic bone lesion consistent with multiple myeloma * Solumedrol 40mg IV Q 8 hours was stopped 01/05 * Will need BAL/Bronch to see if patient has invasive myeloma to the lung-->ICU has discussed with patient's pulm 12/31-->patient is high risk of BAL/Bronch given severe hypoxemia 01/01 note * on high flow oxygen-->stable (2) Fluid Overload-->resolved Assessment and Plan: * ProBNP : 83445 * Contributing factors: acute on chronic kidney disease and hx of diastolic congestive heart failure * Vascular Surgery: Dr. Ontiveros-->notified by emergency room; for emergent dialysis access * Nephrology: Dr Bill on board-->acute on chronic kidney insufficiency, hypercalcemia; emergent dialysis * Chest Xray (12/25/16): prominent diffuse increased interstital lung markings throughout both lungs suggestive for edema and/or infiltrate * Chest Xray (12/27/16): persistent prominent diffuse increased consolidative changes throughtout both lungs with coarse reticular interstital airspce opacities. More focal confluent airspace consolidative changes in the right right midlung zone and left lung base with small left plueral effusion. Cardiomegaly * Echocardiogram (12/27/16) moderate left ventricular diastolic dysfunction. left atrium is moderately dilated. right atrium is mildly dilated, mitral annular calcification is moderate. mitral velve is calcified and displays decreased opening. Mild mitral valve stenosis. severe pulmonary hypertension., EF: 60% * Monitor intake output * Daily weights * 12/27/16: 2nd dialysis session today--> 2 liters removed * 12/28/16: Spoke with Dr. Bill-->dialysis for tomorrow; pending chest xray read * 12/29/16: stable heterogenous infiltrates are seen diffusely bilaterally and are unchanged compared to 12/28/16 prominent cardiac silhouteete is stable. Fractures at the left 3rd, 6th, and 9th ribs identified at latter stage of healing * 12/30/16: Had dialysis today * 12/31/16: Dialysis not improving lung exam * 01/03/17: Chest X Ray shows mild pulmonary congestion (3) Acute kidney injury superimposed on chronic kidney disease Assessment and Plan: * Nephrology Dr. Bill consulted-->help appreciated * Hepatitis panel: Negative * HIV: negative * Mycoplasma Igm: negative * Legionella; Negative * Vascular Surgery: Dr. Ontiveros-->help appreciated * Surgery consulted; tunneled dialysis catheter placed 12/25; completed two sessions of dialysis * Heme-Oncology: Dr Martinez-->help appreciated * patient has light chain multiple myeloma * Recommended for SPEP, IPEP--->detected; M-spike * free light chain lambda: 353766.7 * free light chain kappa: 17.5 * 24 hr urine UPEP-->resulting--> 2108 (high) * beta2 microglobulin * LDH: 522 * Prior SPEP: (12/02/16): M Adarsh migrating in the gamma globulin region; 12/25 : M spike * Chemotherapy-->first session on 01/04/17 * Bone marrow biopsy-->wont be available until , 01/11/17 * 12/25 Urinanalysis: +leuk esterase, 2+ protein, + Wbc and + RBC * urine culture: no growth (<1000 CFU/ml) * Ct Abdomen/Pelvis (12/25/16): No evidence of nephrolithiasis or hydronephrosis , 1,5 cm exophyitc high attentuation lesion at the mid to lower pole of right kidney. possibility of renal cell carcinoma should be excluded. 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 Airspace consolidation at left lobe associated with small pleural fussion suspicious for pneumonia * On HD; Right Chest Perma Cath Status: Acute (4) Multiple Myeloma Assessment and Plan: * Criteria: anemia, renal insufficiency, hypercalcemia * Nephrology Dr. Bill consulted-->help appreciated * Vascular Surgery: Dr. Ontiveros-->help appreciated * Surgery consulted and permacath placed * Heme-Oncology: Dr Martinez-->help appreciated * patient has light chain multiple myeloma * Recommended for SPEP, IPEP--->detected; M-spike * free light chain lambda: 792171.7 * free light chain kappa: 17.5 * 24 hr urine UPEP-->resulting--> 2108 (high) * beta2 microglobulin * LDH: 522 * Prior SPEP: (12/02/16): M Adarsh migrating in the gamma globulin region; 12/25 : M spike * Chemotherapy-->first session on 01/04/17 - Bortezomib 2.3mg IV X1 - Cyclophosphamide 500mg IVX1 - Dexamethasone 20mg IV X1 * Copy of paper chemotherapy regimen provided to LTAC on 01/09/17 and specified that if any questions regarding chemotherapy to speak with heme-onc. * Echocardiogram (12/27/16) moderate left ventricular diastolic dysfunction. left atrium is moderately dilated. right atrium is mildly dilated, mitral annular calcification is moderate. mitral valve is calcified and displays decreased opening. Mild mitral valve stenosis. severe pulmonary hypertension., EF: 60% * Monitor intake output * BUN/Cr elevated today: 90/7.7 * 12/25 Urinanalysis: +leuk esterase, 2+ protein, + Wbc and + RBC * urine culture: no growth (<1000 CFU/ml) * Ct Abdomen/Pelvis (12/25/16): No evidence of nephrolithiasis or hydronephrosis , 1,5 cm exophyitc high attentuation lesion at the mid to lower pole of right kidney. possibility of renal cell carcnioma should be excluded. 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 Airspace consolidation at left lobe associated with small pleural fussion suspicious for pneumonia * Chest xray w rib (12/29/16): stable heterogenous infiltrates are seen diffusely bilaterally and are unchanged compared to 12/28/16 prominent cardiac silhouette is stable. Fractures at the left 3rd, 6th, and 9th ribs identified at latter stage of healing * 12/30: Heme-onc unable to do bone marrow biopsy because of patient's shortness of breathe; reports does not need bone marrow biopsy at this time; recommend for port a cath * 12/31: given possibility of invasive myeloma to the lung; may need bronch/bal for diagnosis * 01/03: patient had Angela Cath placed on Left Chest and had Bone Marrow Biopsy by Dr. Martinez * 01/04: Pathology report on Bone Marrow Bx is pending and patient started on Chemo after HD with next planned 1 week from today * 01/08: pending report from bone marrow biopsy likely to be available , 01/11/17; patient referred to subacute rehab Status: Acute (5) Hypercalcemia Assessment and Plan: * Likely secondary to Multiple Myeloma, see workup under Multiple Myeloma * Nephrology (Dr. Bill) on board-->help appreciated * Heme-onc (Dr. Martinez) on board--->help appreciated * PTH related Protein: 51 * PTH intact: 14 * Vitamin D: 66.6 * ОЛЕГ: 28 * Ionized Calcium: 6.7 * Possible patient has light chain multiple myeloma Status: (6)CHF exacerbation-->Stable Assessment and Plan: * History of diastolic congestive heart failure * Cardiology (Dr. Little) on consult; covering for Dr. Lynch's patients * ProBNP: 66537 * Echocardiogram (12/27/16) moderate left ventricular diastolic dysfunction. left atrium is moderately dilated. right atrium is mildly dilated, mitral annular calcification is moderate. mitral valve is calcified and displays decreased opening. Mild mitral valve stenosis. severe pulmonary hypertension., EF: 60% * monitor intake and output * Patient has acute renal failure unable to start ARB/ОЛЕГ * Lopressor 25mg PO BID * Crestor 5mg POqHS * Daily Weights Status: Acute (7) Anemia Assessment and Plan: * Heme-onc (Dr. Martinez) on board-->help appreciated * Discussed with PMD: Dr. Winkler-->patient has had workup including GI workup in 2017 in regards to anemia * Thought to be chronic secondary to kidney disease; anemia of critical disease * Continue home meds Ferrous sulfate 325 mg daily * s/p unit of PRBC during hospitalization * 12/25 stool occult blood: negative * Prior hospitalizations included in patient's chart * HgB/Hct stable Status: Chronic (8) Atrial fibrillation Assessment and Plan: * Cardiology (Dr. Little) covering for Dr. Lynch's patients * Off Amiodarone 200 mg daily, Cardizem 240 mg daily * Patient is not on anticoagulation secondary to anemia * CHADS: 4 (DM, Age, HTN, CHF) * HASBLED:2 (Age and Renal Disease) * 01/04: had episode of rapid AF after HD. Was given Amiodarone 150 mg over 10 minutes and the rate was controlled but then had to be placed on Amiodarone Drip * 01/05: Discontinued Amiodarone Drip at 6:40 PM as she is rate controlled and started Lopressor 25 mg PO BID * 01/06: Better rate controlled; c/w Lopressor only Status: Acute (9) HTN (hypertension) Assessment and Plan: * Monitor vital signs * Patient is on dialysis secondary to MARIA EUGENIA secondary to Multiple Myeloma Status: Chronic (10) Leukocytosis Assessment and Plan: * In the ED, order for dose of Zosyn and Vancomycin on 12/25 * Strep, legionella: negative and mycoplasma IgM: negative * Patient recently at the hospital within 90 days-->consideration for possible hospital acquired pneumonia * Patient does not meet sepsis critera (04/19: leukocytosis) * Start Zosyn 2.25 gr IV Q8H (active since 12/25/16) and Doxcycline 100mg IV Q 12hours (active since 12/25/16 through 01/04/17) * Blood Culture (12/25/16): no growth after 5 days X 2 * Urine culture (12/25/16): <1000 * Procalcitonin low * Blood Culture (12/29/16): no growth after 3 days x 2 * Solumedrol 40mg IV Q 8 hours per pulmonary (12/27/16 through 01/04/17); Decadron IV 01/04 for chemo * 01/02: currently on Zozyn 2.25 gm IV Q8H (12/25/16) and Bactrim DS 2 tab PO Q24 H (01/02/17: to cover for PCP) * 01/03: started on Zovirax 400 mg PO 1x/day by Heme/Onc Dr. 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) Assessment and Plan: * Consult: Dr Kessler (pulmonary fibrosis) on board * continue home meds: Pulmicort Flexhaler 90 mcg INH RQ12hr * Solumedrol 40mg IV Q 8 hours (12/27/16 through 01/04/17) * 01/05 On High Flow Oxygen Status: Chronic (12) History of Gastritis Assessment and Plan: * Pepcid 20mg PO daily was increased to 20 mg PO BID (01/06/17) Status: Chronic (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 Assessment and Plan: * Continue home meds: Glipizide 10 mg daily * daily Accuchecks QAC and HS * [id number]: 6.1 * Lantus 10 Units SC HS * Regular Insulin 12 Units AC Meals Status: Chronic (14) Hypothyroidism Status: Chronic * TSH: 4.84 * Levothyroxine 75mcg/day Status: Chronic (15) Hepatitis Assessment and Plan: * RUQ pain will f/u Amylase, lipase which are normal * LFTs are normal * GI outpatient: [facility]; previously treated Hepatitis C Status: Chronic (16) History of back pain Assessment and Plan: * held Magnesium oxide 400 mg BID * Tramadol 25 mg 1 tablet Q6hr for break through pain ordered 01/02 * On Lidoderm patch * likely secondary to lytic lesion likely secondary to Multiple Myeloma Status: Acute (17) Lower extremity pain Assessment and Plan: * Held Magnesium oxide 400 mg BID; Tramadol-Acetaminophen 32.5-325 mg 2 tablets Q6hr Status: Acute (18) Thrombocytopenia * held heparin * ordered for HIT antibiotics * Improved Status: Acute (19) Prophylactic measure Assessment and Plan: * DVT: SCDs b/l; d/c heparin 5000 units subq12 secondary to thrombocytopenia * GI: Pepcid 20mg PO was increased to 20 mg PO BID (01/06/17) * Monitor intake and output * Daily Weight * PT/OT eval Status: Acute Disposition: Patient was accepted to LTAC; Discussed with patient's brother, heme-onc, and left message with patient's PMD answering service. Patient to resume chemotherapy and dialysis.
--- NOTE | 2017-01-09 12:12 | CP.PCM.PN ---
Subjective - Date & Time of Evaluation Date of Evaluation: 01/09/17 Time of Evaluation: 12:11 - Subjective Subjective: seen and examiend hd today plan for LTAC noted no complaints Objective - Vital Signs/Intake and Output Vital Signs (last 24 hours): Temp Pulse Resp BP Pulse Ox 97.6 F 67 20 104/57 L 95 01/09/17 00:00 01/09/17 00:00 01/09/17 09:02 01/09/17 00:00 01/09/17 00:00 Intake and Output: 01/09/17 01/09/17 06:59 18:59 Intake Total 240 Balance 240 - Medications Medications: Current Medications Acyclovir (Zovirax) 400 mg PO DAILY [facility] Last Admin: 01/09/17 11:41 Dose: Not Given Albuterol/Ipratropium (Duoneb 3 Mg/0.5 Mg (3 Ml) Ud) 3 ml INH RQ6 [facility] Last Admin: 01/09/17 09:01 Dose: 3 ml Docusate Sodium (Colace) 100 mg PO TID [facility] Last Admin: 01/09/17 11:39 Dose: Not Given Ferrous Sulfate (Feosol) 325 mg PO DAILY [facility] Last Admin: 01/09/17 11:40 Dose: Not Given Glipizide (Glucotrol) 10 mg PO DAILY [facility] Last Admin: 01/09/17 11:40 Dose: Not Given Insulin Glargine (Lantus) 10 unit SC [facility] Last Admin: 01/08/17 22:18 Dose: Not Given Insulin Human Regular (Novolin R) 0 unit SC [facility] PRN Reason: Protocol Last Admin: 01/09/17 12:09 Dose: 2 unit Levothyroxine Sodium (Synthroid) 75 mcg PO DAILY@0630 [facility] Last Admin: 01/09/17 05:43 Dose: 75 mcg Lidocaine (Lidoderm) 1 ea TD DAILY [facility] Last Admin: 01/09/17 11:40 Dose: Not Given Metoprolol Tartrate (Lopressor) 25 mg PO BID [facility] Last Admin: 01/09/17 11:40 Dose: Not Given Ondansetron HCl (Zofran Inj) 4 mg IVP Q6H PRN PRN Reason: Nausea/Vomiting Last Admin: 01/06/17 13:30 Dose: 4 mg Rosuvastatin Calcium (Crestor) 5 mg PO HS [facility] Last Admin: 01/08/17 22:18 Dose: 5 mg Senna/Docusate Sodium (Senokot S 50 Mg-8.6 Mg) 1 tab PO DAILY [facility] Last Admin: 01/09/17 11:41 Dose: Not Given Sevelamer Carbonate (Renvela) 1,600 mg PO T[facility] Last Admin: 01/09/17 11:40 Dose: Not Given Tramadol HCl (Ultram) 25 mg PO Q6H PRN PRN Reason: Pain, severe (8-10) Last Admin: 01/07/17 22:03 Dose: 25 mg Trimethoprim/Sulfamethoxazole (Bactrim Ss Tab) 1 tab PO DAILY [facility] Last Admin: 01/09/17 11:39 Dose: Not Given - Labs Labs: 01/09/17 07:02 01/09/17 07:02 PT 13.1 SECONDS (9.7-12.2) H 12/26/16 08:05 INR 1.2 12/26/16 08:05 APTT 27 SECONDS (21-34) 01/01/17 06:00 - Constitutional Appears: No Acute Distress, Chronically Ill - Head Exam Head Exam: NORMAL INSPECTION - Eye Exam Eye Exam: Normal appearance - ENT Exam ENT Exam: Mucous Membranes Moist, Normal Exam - Neck Exam Neck Exam: Normal Inspection - Respiratory Exam Respiratory Exam: Clear to Ausculation Bilateral, NORMAL BREATHING PATTERN - Cardiovascular Exam Cardiovascular Exam: RRR (rt chest permcath. lt chest portacath) - Neurological Exam Neurological Exam: Alert, Awake Assessment and Plan (1) Anemia Status: Acute (2) Hypercalcemia Status: Acute (3) Renal failure Status: Acute (4) Acute kidney injury superimposed on chronic kidney disease Status: Acute (5) Atrial fibrillation with controlled ventricular response Status: Acute - Assessment and Plan (Free Text) Assessment: maintain hd, [facility] hd placement discussed w/ SW follow up w/ oncology
--- NOTE | 2017-01-09 14:39 | CP.PCM.PN ---
<MoopatriaEse - Last Filed: 01/09/17 14:32> Subjective - Date & Time of Evaluation Date of Evaluation: 01/09/17 Time of Evaluation: 07:00 - Subjective Subjective: Medicine Note for Dr. Junior Patient was seen and examined at bedside. Patient reports her breathing is unchanged, better with the HiFlow Oxygen. Patient understands that she has a spot in a LTAC where she can continue chemotherapy, however she does not feel comfortable going until the plan is discussed with her brother. Multiple calls and messages placed by the SW and Medicine Team to the patient's brother, no response yet. Denied fever,chills, headache, chest pain, SOB, abdominal pain, n/ v/d/c, or urinary symptoms. Objective - Vital Signs/Intake and Output Vital Signs (last 24 hours): Temp Pulse Resp BP Pulse Ox 97.6 F 88 21 119/70 99 01/09/17 00:00 01/09/17 13:58 01/09/17 11:45 01/09/17 13:58 01/09/17 13:58 Intake and Output: 01/09/17 01/09/17 06:59 18:59 Intake Total 240 Balance 240 - Medications Medications: Current Medications Acyclovir (Zovirax) 400 mg PO DAILY [facility] Last Admin: 01/09/17 11:41 Dose: Not Given Albuterol/Ipratropium (Duoneb 3 Mg/0.5 Mg (3 Ml) Ud) 3 ml INH RQ6 [facility] Last Admin: 01/09/17 14:17 Dose: Not Given Docusate Sodium (Colace) 100 mg PO TID [facility] Last Admin: 01/09/17 13:41 Dose: Not Given Ferrous Sulfate (Feosol) 325 mg PO DAILY [facility] Last Admin: 01/09/17 11:40 Dose: Not Given Glipizide (Glucotrol) 10 mg PO DAILY [facility] Last Admin: 01/09/17 11:40 Dose: Not Given Insulin Glargine (Lantus) 10 unit SC HS [facility] Last Admin: 01/08/17 22:18 Dose: Not Given Insulin Human Regular (Novolin R) 0 unit SC ACHS [facility] PRN Reason: Protocol Last Admin: 01/09/17 12:09 Dose: 2 unit Levothyroxine Sodium (Synthroid) 75 mcg PO DAILY@0630 [facility] Last Admin: 01/09/17 05:43 Dose: 75 mcg Lidocaine (Lidoderm) 1 ea TD DAILY [facility] Last Admin: 01/09/17 11:40 Dose: Not Given Metoprolol Tartrate (Lopressor) 25 mg PO BID [facility] Last Admin: 01/09/17 11:40 Dose: Not Given Ondansetron HCl (Zofran Inj) 4 mg IVP Q6H PRN PRN Reason: Nausea/Vomiting Last Admin: 01/06/17 13:30 Dose: 4 mg Rosuvastatin Calcium (Crestor) 5 mg PO HS [facility] Last Admin: 01/08/17 22:18 Dose: 5 mg Senna/Docusate Sodium (Senokot S 50 Mg-8.6 Mg) 1 tab PO DAILY [facility] Last Admin: 01/09/17 11:41 Dose: Not Given Sevelamer Carbonate (Renvela) 1,600 mg PO TIDCC [facility] Last Admin: 01/09/17 11:40 Dose: Not Given Tramadol HCl (Ultram) 25 mg PO Q6H PRN PRN Reason: Pain, severe (8-10) Last Admin: 01/07/17 22:03 Dose: 25 mg Trimethoprim/Sulfamethoxazole (Bactrim Ss Tab) 1 tab PO DAILY [facility] Last Admin: 01/09/17 11:39 Dose: Not Given - Labs Labs: 01/09/17 07:02 01/09/17 07:02 PT 13.1 SECONDS (9.7-12.2) H 12/26/16 08:05 INR 1.2 12/26/16 08:05 APTT 27 SECONDS (21-34) 01/01/17 06:00 - Constitutional Appears: No Acute Distress - Head Exam Head Exam: NORMAL INSPECTION, NORMOCEPHALIC - Eye Exam Eye Exam: EOMI, Normal appearance, PERRL Pupil Exam: NORMAL ACCOMODATION - ENT Exam ENT Exam: Mucous Membranes Moist - Respiratory Exam Respiratory Exam: Decreased Breath Sounds - Cardiovascular Exam Cardiovascular Exam: REGULAR RHYTHM, RRR, +S1, +S2 - GI/Abdominal Exam GI & Abdominal Exam: Soft, Normal Bowel Sounds. absent: Distended, Tenderness - Extremities Exam Extremities Exam: Normal Inspection, Tenderness. absent: Pedal Edema - Neurological Exam Neurological Exam: Alert, Awake, Oriented x3 - Psychiatric Exam Psychiatric exam: Depressed - Skin Skin Exam: Dry, Intact, Normal Color Assessment and Plan - Assessment and Plan (Free Text) Plan: Disposition: Patient had left chest Port Cath placed on 01/03/17 and had bone marrow biopsy on the same day. She was started on Chemotherapy by Dr. Martinez for treatment of likely Multiple Myeloma on 01/04/17 with next treatment planned for 01/11/17. Bone Marrow Biopsy pathology report is pending. The hope is the chemotherapy will help with her respiratory status. She is currently on HiFlow Oxygen. She had episode of Atrial Fibrillation on 01/04/17 S/P HD. She was placed on Amiodarone Drip which was then discontinued on 01/05/17 evening and started on Lopressor 25 mg PO BID and has been rate controlled. Patient understands that she has a spot in a LTAC where she can continue chemotherapy, however she does not feel comfortable going until the plan is discussed with her brother. Multiple calls and messages placed by the SW and Medicine Team to the patient's brother, no response yet. (1) Acute Respiratory Distress Assessment and Plan: * Pulmonary (Dr. Kessler) on board-->help appreciated * Patient has history of COPD per pulmonary * Patient requires max oxygen support per ICU * CT Chest (12/31): interval worsening of nonspecific ground glass opacities in the lungs since the previous exam. Interstitial septal thickening and crazy paving appearance of the lungs. Mild cardiomegaly. Small left pleural effusion. Diffuse lytic bone lesion consistent with multiple myeloma * Solumedrol 40mg IV Q 8 hours was stopped 01/05 * Will need BAL/Bronch to see if patient has invasive myeloma to the lung-->ICU has discussed with patient's pulm 12/31-->patient is high risk of BAL/Bronch given severe hypoxemia 01/01 note * on high flow oxygen (2) Fluid Overload Assessment and Plan: * ProBNP : 70020 * Contributing factors: acute on chronic kidney disease and hx of diastolic congestive heart failure * Vascular Surgery: Dr. Ontiveros-->notified by emergency room; for emergent dialysis access * Nephrology: Dr Bill on board-->acute on chronic kidney insufficiency, hypercalcemia; emergent dialysis * Chest Xray (12/25/16): prominent diffuse increased interstital lung markings throughout both lungs suggestive for edema and/or infiltrate * Chest Xray (12/27/16): persistent prominent diffuse increased consolidative changes throughtout both lungs with coarse reticular interstital airspce opacities. More focal confluent airspace consolidative changes in the right right midlung zone and left lung base with small left plueral effusion. Cardiomegaly * Echocardiogram (12/27/16) moderate left ventricular diastolic dysfunction. left atrium is moderately dilated. right atrium is mildly dilated, mitral annular calcification is moderate. mitral velve is calcified and displays decreased opening. Mild mitral valve stenosis. severe pulmonary hypertension., EF: 60% * Monitor intake output * Daily weights * 12/27/16: 2nd dialysis session today--> 2 liters removed * 12/28/16: Spoke with Dr. Bill-->dialysis for tomorrow; pending chest xray read * 12/29/16: stable heterogenous infiltrates are seen diffusely bilaterally and are unchanged compared to 12/28/16 prominent cardiac silhouteete is stable. Fractures at the left 3rd, 6th, and 9th ribs identified at latter stage of healing * 12/30/16: Had dialysis today * 12/31/16: Dialysis not improving lung exam * 01/03/17: Chest X Ray shows mild pulmonary congestion (3) Acute kidney injury superimposed on chronic kidney disease Assessment and Plan: * Nephrology Dr. Bill consulted-->help appreciated * Hepatitis panel: Negative * HIV: negative * Mycoplasma Igm: negative * Legionella; Negative * Vascular Surgery: Dr. Ontiveros-->help appreciated * Surgery consulted; tunneled dialysis catheter placed 12/25; completed two sessions of dialysis * Heme-Oncology: Dr Martinez-->help appreciated * patient has light chain multiple myeloma * Recommended for SPEP, IPEP--->detected; M-spike * free light chain lambda: 729000.7 * free light chain kappa: 17.5 * 24 hr urine UPEP-->resulting--> 2108 (high) * beta2 microglobulin * LDH: 522 * Prior SPEP: (12/02/16): M Adarsh migrating in the gamma globulin region; 12/25 : M spike * Chemotherapy-->first session on 01/04/17 * Bone marrow biopsy-->wont be available until , 01/11/17 * 12/25 Urinanalysis: +leuk esterase, 2+ protein, + Wbc and + RBC * urine culture: no growth (<1000 CFU/ml) * Ct Abdomen/Pelvis (12/25/16): No evidence of nephrolithiasis or hydronephrosis , 1,5 cm exophyitc high attentuation lesion at the mid to lower pole of right kidney. possibility of renal cell carcinoma should be excluded. 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 Airspace consolidation at left lobe associated with small pleural fussion suspicious for pneumonia * On HD through Right Chest Perma Cath Status: Acute (4) Multiple Myeloma Assessment and Plan: * Criteria: anemia, renal insufficiency, hypercalcemia * Nephrology Dr. Bill consulted-->help appreciated * Vascular Surgery: Dr. Ontiveros-->help appreciated * Surgery consulted and permacath placed * Heme-Oncology: Dr Martinez-->help appreciated * patient has light chain multiple myeloma * Recommended for SPEP, IPEP--->detected; M-spike * free light chain lambda: 055072.7 * free light chain kappa: 17.5 * 24 hr urine UPEP-->resulting--> 2108 (high) * beta2 microglobulin * LDH: 522 * Prior SPEP: (12/02/16): M Adarsh migrating in the gamma globulin region; 12/25 : M spike * Chemotherapy-->first session on 01/04/17 - Bortezomib 2.3mg IV X1 - Cyclophosphamide 500mg IVX1 - Dexamethasone 20mg IV X1 * Echocardiogram (12/27/16) moderate left ventricular diastolic dysfunction. left atrium is moderately dilated. right atrium is mildly dilated, mitral annular calcification is moderate. mitral valve is calcified and displays decreased opening. Mild mitral valve stenosis. severe pulmonary hypertension., EF: 60% * Monitor intake output * BUN/Cr elevated today: 90/7.7 * 12/25 Urinanalysis: +leuk esterase, 2+ protein, + Wbc and + RBC * urine culture: no growth (<1000 CFU/ml) * Ct Abdomen/Pelvis (12/25/16): No evidence of nephrolithiasis or hydronephrosis , 1,5 cm exophyitc high attentuation lesion at the mid to lower pole of right kidney. possibility of renal cell carcnioma should be excluded. 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 Airspace consolidation at left lobe associated with small pleural fussion suspicious for pneumonia * Chest xray w rib (12/29/16): stable heterogenous infiltrates are seen diffusely bilaterally and are unchanged compared to 12/28/16 prominent cardiac silhouette is stable. Fractures at the left 3rd, 6th, and 9th ribs identified at latter stage of healing * 12/30: Heme-onc unable to do bone marrow biopsy because of patient's shortness of breathe; reports does not need bone marrow biopsy at this time; recommend for port a cath * 12/31: given possibility of invasive myeloma to the lung; may need bronch/bal for diagnosis * 01/03: patient had Angela Cath placed on Left Chest and had Bone Marrow Biopsy by Dr. Martinez * 01/04: Pathology report on Bone Marrow Bx is pending and patient started on Chemo after HD with next planned 1 week from today * 01/08: pending report from bone marrow biopsy likely to be available , 01/11/17; patient referred to subacute rehab Status: Acute (5) Hypercalcemia Assessment and Plan: * Likely secondary to Multiple Myeloma, see workup under Multiple Myeloma * Nephrology (Dr. Bill) on board-->help appreciated * Heme-onc (Dr. Martinez) on board--->help appreciated * PTH related Protein: 51 * PTH intact: 14 * Vitamin D: 66.6 * ОЛЕГ: 28 * Ionized Calcium: 6.7 * Possible patient has light chain multiple myeloma Status: (6) Possible CHF exacerbation Assessment and Plan: * History of diastolic congestive heart failure * Cardiology (Dr. Little) on consult; covering for Dr. Lynch's patients * ProBNP: 49955 * Echocardiogram (12/27/16) moderate left ventricular diastolic dysfunction. left atrium is moderately dilated. right atrium is mildly dilated, mitral annular calcification is moderate. mitral valve is calcified and displays decreased opening. Mild mitral valve stenosis. severe pulmonary hypertension., EF: 60% * monitor intake and output * Patient has acute renal failure unable to start ARB/ОЛЕГ * Lopressor 25mg PO BID * Crestor 5mg POqHS * Daily Weights Status: Acute (7) Anemia Assessment and Plan: * Heme-onc (Dr. Martinez) on board-->help appreciated * Discussed with PMD: Dr. Cathi-->patient has had workup including GI workup in 2017 in regards to anemia * Thought to be chronic secondary to kidney disease; anemia of critical disease * Continue home meds Ferrous sulfate 325 mg daily * s/p unit of PRBC during hospitalization * 12/25 stool occult blood: negative * Prior hospitalizations included in patient's chart; awaiting copy of report of GI workup * HgB/Hct stable Status: Chronic (8) Atrial fibrillation Assessment and Plan: * Cardiology (Dr. Little) covering for Dr. Lynch's patients * Continue home meds: Amiodarone 200 mg daily, Cardizem 240 mg daily * Patient is not on anticoagulation secondary to anemia * CHADS: 4 (DM, Age, HTN, CHF) * HASBLED:2 (Age and Renal Disease) * 01/04: had episode of rapid AF after HD. Was given Amiodarone 150 mg over 10 minutes and the rate was controlled but then had to be placed on Amiodarone Drip * 01/05: Discontinued Amiodarone Drip at 6:40 PM as she is rate controlled and started Lopressor 25 mg PO BID * 01/06: Better rate controlled; c/w Lopressor Status: Acute (9) HTN (hypertension) Assessment and Plan: * Monitor vital signs * Patient is on dialysis secondary to MARIA EUGENIA secondary to Multiple Myeloma Status: Chronic (10) Leukocytosis Assessment and Plan: * In the ED, order for dose of Zosyn and Vancomycin on 12/25 * Strep, legionella: negative and mycoplasma IgM: negative * Patient recently at the hospital within 90 days-->consideration for possible hospital acquired pneumonia * Patient does not meet sepsis critera (04/19: leukocytosis) * Start Zosyn 2.25 gr IV Q8H (active since 12/25/16) and Doxcycline 100mg IV Q 12hours (active since 12/25/16 through 01/04/17) * Blood Culture (12/25/16): no growth after 5 days X 2 * Urine culture (12/25/16): <1000 * Procalcitonin low * Blood Culture (12/29/16): no growth after 3 days x 2 * Solumedrol 40mg IV Q 8 hours per pulmonary (12/27/16 through 01/04/17); Decadron IV 01/04 for chemo * 01/02: currently on Zozyn 2.25 gm IV Q8H (12/25/16) and Bactrim DS 2 tab PO Q24 H (01/02/17: to cover for PCP) * 01/03: started on Zovirax 400 mg PO 1x/day by Heme/Onc Dr. 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) Assessment and Plan: * Consult: Dr Kessler (pulmonary fibrosis) on board * continue home meds: Pulmicort Flexhaler 90 mcg INH RQ12hr * Solumedrol 40mg IV Q 8 hours (12/27/16 through 01/04/17) * 01/05 On High Flow Oxygen Status: Chronic (12) History of Gastritis Assessment and Plan: * Pepcid 20mg PO daily was increased to 20 mg PO BID (01/06/17) Status: Chronic (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 Assessment and Plan: * Continue home meds: Glipizide 10 mg daily * daily Accuchecks QAC and HS * [id number]: 6.1 * Lantus 10 Units SC HS * Regular Insulin 12 Units AC Meals Status: Chronic (14) Hypothyroidism Status: Chronic * TSH: 4.84 * Levothyroxine 75mcg/day Status: Chronic (15) Hepatitis Assessment and Plan: * RUQ pain will f/u Amylase, lipase which are normal * LFTs are normal * GI outpatient: [facility]; previously treated Hepatitis C Status: Chronic (16) History of back pain Assessment and Plan: * held Magnesium oxide 400 mg BID * Tramadol 25 mg 1 tablet Q6hr for break through pain ordered 01/02 * On Lidoderm patch * likely secondary to lytic lesion likely secondary to Multiple Myeloma Status: Acute (17) Lower extremity pain Assessment and Plan: * Held Magnesium oxide 400 mg BID; Tramadol-Acetaminophen 32.5-325 mg 2 tablets Q6hr Status: Acute (18) Thrombocytopenia * held heparin * ordered for HIT antibiotics * Possible effect from Bactrim SE? Status: Acute (19) Prophylactic measure Assessment and Plan: * DVT: SCDs b/l; d/c heparin 5000 units subq12 secondary to thrombocytopenia * GI: Pepcid 20mg PO was increased to 20 mg PO BID (01/06/17) * Monitor intake and output * Daily Weight * PT/OT eval TOPHER Junior, [place], PGY-1 <Nika Junior V - Last Filed: 01/11/17 01:14> Objective - Vital Signs/Intake and Output Vital Signs (last 24 hours): Temp Pulse Resp BP Pulse Ox 98.3 F 80 20 87/41 L 98 01/09/17 18:15 01/09/17 18:15 01/09/17 18:15 01/09/17 18:15 01/09/17 18:15 - Labs Labs: 01/09/17 07:02 01/09/17 07:02 PT 13.1 SECONDS (9.7-12.2) H 12/26/16 08:05 INR 1.2 12/26/16 08:05 APTT 27 SECONDS (21-34) 01/01/17 06:00 Attending/Attestation - Attestation I have personally seen and examined this patient.: Yes I have fully participated in the care of the patient.: Yes I have reviewed all pertinent clinical information, including history, physical exam and plan: Yes Notes (Text): Please refer to Discharge Summary for same date for further details. Discharge Diagnoses: (1) Acute Respiratory Distress Assessment and Plan: * Pulmonary (Dr. Kessler) on board-->help appreciated * Patient has history of COPD per pulmonary * Patient requires max oxygen support per ICU * CT Chest (12/31): interval worsening of nonspecific ground glass opacities in the lungs since the previous exam. Interstitial septal thickening and crazy paving appearance of the lungs. Mild cardiomegaly. Small left pleural effusion. Diffuse lytic bone lesion consistent with multiple myeloma * Solumedrol 40mg IV Q 8 hours was stopped 01/05 * Will need BAL/Bronch to see if patient has invasive myeloma to the lung-->ICU has discussed with patient's pulm 12/31-->patient is high risk of BAL/Bronch given severe hypoxemia 01/01 note * on high flow oxygen-->stable (2) Fluid Overload-->resolved Assessment and Plan: * ProBNP : 49516 * Contributing factors: acute on chronic kidney disease and hx of diastolic congestive heart failure * Vascular Surgery: Dr. Ontiveros-->notified by emergency room; for emergent dialysis access * Nephrology: Dr Bill on board-->acute on chronic kidney insufficiency, hypercalcemia; emergent dialysis * Chest Xray (12/25/16): prominent diffuse increased interstital lung markings throughout both lungs suggestive for edema and/or infiltrate * Chest Xray (12/27/16): persistent prominent diffuse increased consolidative changes throughtout both lungs with coarse reticular interstital airspce opacities. More focal confluent airspace consolidative changes in the right right midlung zone and left lung base with small left plueral effusion. Cardiomegaly * Echocardiogram (12/27/16) moderate left ventricular diastolic dysfunction. left atrium is moderately dilated. right atrium is mildly dilated, mitral annular calcification is moderate. mitral velve is calcified and displays decreased opening. Mild mitral valve stenosis. severe pulmonary hypertension., EF: 60% * Monitor intake output * Daily weights * 12/27/16: 2nd dialysis session today--> 2 liters removed * 12/28/16: Spoke with Dr. Bill-->dialysis for tomorrow; pending chest xray read * 12/29/16: stable heterogenous infiltrates are seen diffusely bilaterally and are unchanged compared to 12/28/16 prominent cardiac silhouteete is stable. Fractures at the left 3rd, 6th, and 9th ribs identified at latter stage of healing * 12/30/16: Had dialysis today * 12/31/16: Dialysis not improving lung exam * 01/03/17: Chest X Ray shows mild pulmonary congestion (3) Acute kidney injury superimposed on chronic kidney disease Assessment and Plan: * Nephrology Dr. Bill consulted-->help appreciated * Hepatitis panel: Negative * HIV: negative * Mycoplasma Igm: negative * Legionella; Negative * Vascular Surgery: Dr. Ontiveros-->help appreciated * Surgery consulted; tunneled dialysis catheter placed 12/25; completed two sessions of dialysis * Heme-Oncology: Dr Martinez-->help appreciated * patient has light chain multiple myeloma * Recommended for SPEP, IPEP--->detected; M-spike * free light chain lambda: 561283.7 * free light chain kappa: 17.5 * 24 hr urine UPEP-->resulting--> 2108 (high) * beta2 microglobulin * LDH: 522 * Prior SPEP: (12/02/16): M Adarsh migrating in the gamma globulin region; 12/25 : M spike * Chemotherapy-->first session on 01/04/17 * Bone marrow biopsy-->wont be available until , 01/11/17 * 12/25 Urinanalysis: +leuk esterase, 2+ protein, + Wbc and + RBC * urine culture: no growth (<1000 CFU/ml) * Ct Abdomen/Pelvis (12/25/16): No evidence of nephrolithiasis or hydronephrosis , 1,5 cm exophyitc high attentuation lesion at the mid to lower pole of right kidney. possibility of renal cell carcinoma should be excluded. 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 Airspace consolidation at left lobe associated with small pleural fussion suspicious for pneumonia * On HD; Right Chest Perma Cath Status: Acute (4) Multiple Myeloma Assessment and Plan: * Criteria: anemia, renal insufficiency, hypercalcemia * Nephrology Dr. Bill consulted-->help appreciated * Vascular Surgery: Dr. Ontiveros-->help appreciated * Surgery consulted and permacath placed * Heme-Oncology: Dr Martinez-->help appreciated * patient has light chain multiple myeloma * Recommended for SPEP, IPEP--->detected; M-spike * free light chain lambda: 566243.7 * free light chain kappa: 17.5 * 24 hr urine UPEP-->resulting--> 2108 (high) * beta2 microglobulin * LDH: 522 * Prior SPEP: (12/02/16): M Adarsh migrating in the gamma globulin region; 12/25 : M spike * Chemotherapy-->first session on 01/04/17 - Bortezomib 2.3mg IV X1 - Cyclophosphamide 500mg IVX1 - Dexamethasone 20mg IV X1 * Copy of paper chemotherapy regimen provided to LTAC on 01/09/17 and specified that if any questions regarding chemotherapy to speak with heme-onc. * Echocardiogram (12/27/16) moderate left ventricular diastolic dysfunction. left atrium is moderately dilated. right atrium is mildly dilated, mitral annular calcification is moderate. mitral valve is calcified and displays decreased opening. Mild mitral valve stenosis. severe pulmonary hypertension., EF: 60% * Monitor intake output * BUN/Cr elevated today: 90/7.7 * 12/25 Urinanalysis: +leuk esterase, 2+ protein, + Wbc and + RBC * urine culture: no growth (<1000 CFU/ml) * Ct Abdomen/Pelvis (12/25/16): No evidence of nephrolithiasis or hydronephrosis , 1,5 cm exophyitc high attentuation lesion at the mid to lower pole of right kidney. possibility of renal cell carcnioma should be excluded. 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 Airspace consolidation at left lobe associated with small pleural fussion suspicious for pneumonia * Chest xray w rib (12/29/16): stable heterogenous infiltrates are seen diffusely bilaterally and are unchanged compared to 12/28/16 prominent cardiac silhouette is stable. Fractures at the left 3rd, 6th, and 9th ribs identified at latter stage of healing * 12/30: Heme-onc unable to do bone marrow biopsy because of patient's shortness of breathe; reports does not need bone marrow biopsy at this time; recommend for port a cath * 12/31: given possibility of invasive myeloma to the lung; may need bronch/bal for diagnosis * 01/03: patient had Angela Cath placed on Left Chest and had Bone Marrow Biopsy by Dr. Martinez * 01/04: Pathology report on Bone Marrow Bx is pending and patient started on Chemo after HD with next planned 1 week from today * 01/08: pending report from bone marrow biopsy likely to be available , 01/11/17; patient referred to subacute rehab Status: Acute (5) Hypercalcemia Assessment and Plan: * Likely secondary to Multiple Myeloma, see workup under Multiple Myeloma * Nephrology (Dr. Bill) on board-->help appreciated * Heme-onc (Dr. Martinez) on board--->help appreciated * PTH related Protein: 51 * PTH intact: 14 * Vitamin D: 66.6 * ОЛЕГ: 28 * Ionized Calcium: 6.7 * Possible patient has light chain multiple myeloma Status: (6)CHF exacerbation-->Stable Assessment and Plan: * History of diastolic congestive heart failure * Cardiology (Dr. Little) on consult; covering for Dr. Lynch's patients * ProBNP: [id number] * Echocardiogram (12/27/16) moderate left ventricular diastolic dysfunction. left atrium is moderately dilated. right atrium is mildly dilated, mitral annular calcification is moderate. mitral valve is calcified and displays decreased opening. Mild mitral valve stenosis. severe pulmonary hypertension., EF: 60% * monitor intake and output * Patient has acute renal failure unable to start ARB/ОЛЕГ * Lopressor 25mg PO BID * Crestor 5mg POqHS * Daily Weights Status: Acute (7) Anemia Assessment and Plan: * Heme-onc (Dr. Martinez) on board-->help appreciated * Discussed with PMD: Dr. Winkler-->patient has had workup including GI workup in 2017 in regards to anemia * Thought to be chronic secondary to kidney disease; anemia of critical disease * Continue home meds Ferrous sulfate 325 mg daily * s/p unit of PRBC during hospitalization * 12/25 stool occult blood: negative * Prior hospitalizations included in patient's chart * HgB/Hct stable Status: Chronic (8) Atrial fibrillation Assessment and Plan: * Cardiology (Dr. Little) covering for Dr. Lynch's patients * Off Amiodarone 200 mg daily, Cardizem 240 mg daily * Patient is not on anticoagulation secondary to anemia * CHADS: 4 (DM, Age, HTN, CHF) * HASBLED:2 (Age and Renal Disease) * 01/04: had episode of rapid AF after HD. Was given Amiodarone 150 mg over 10 minutes and the rate was controlled but then had to be placed on Amiodarone Drip * 01/05: Discontinued Amiodarone Drip at 6:40 PM as she is rate controlled and started Lopressor 25 mg PO BID * 01/06: Better rate controlled; c/w Lopressor only Status: Acute (9) HTN (hypertension) Assessment and Plan: * Monitor vital signs * Patient is on dialysis secondary to MARIA EUGENIA secondary to Multiple Myeloma Status: Chronic (10) Leukocytosis Assessment and Plan: * In the ED, order for dose of Zosyn and Vancomycin on 12/25 * Strep, legionella: negative and mycoplasma IgM: negative * Patient recently at the hospital within 90 days-->consideration for possible hospital acquired pneumonia * Patient does not meet sepsis critera (04/19: leukocytosis) * Start Zosyn 2.25 gr IV Q8H (active since 12/25/16) and Doxcycline 100mg IV Q 12hours (active since 12/25/16 through 01/04/17) * Blood Culture (12/25/16): no growth after 5 days X 2 * Urine culture (12/25/16): <1000 * Procalcitonin low * Blood Culture (12/29/16): no growth after 3 days x 2 * Solumedrol 40mg IV Q 8 hours per pulmonary (12/27/16 through 01/04/17); Decadron IV 01/04 for chemo * 01/02: currently on Zozyn 2.25 gm IV Q8H (12/25/16) and Bactrim DS 2 tab PO Q24 H (01/02/17: to cover for PCP) * 01/03: started on Zovirax 400 mg PO 1x/day by Heme/Onc Dr. 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) Assessment and Plan: * Consult: Dr Kessler (pulmonary fibrosis) on board * continue home meds: Pulmicort Flexhaler 90 mcg INH RQ12hr * Solumedrol 40mg IV Q 8 hours (12/27/16 through 01/04/17) * 01/05 On High Flow Oxygen Status: Chronic (12) History of Gastritis Assessment and Plan: * Pepcid 20mg PO daily was increased to 20 mg PO BID (01/06/17) Status: Chronic (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 Assessment and Plan: * Continue home meds: Glipizide 10 mg daily * daily Accuchecks QAC and HS * [id number]: 6.1 * Lantus 10 Units SC HS * Regular Insulin 12 Units AC Meals Status: Chronic (14) Hypothyroidism Status: Chronic * TSH: 4.84 * Levothyroxine 75mcg/day Status: Chronic (15) Hepatitis Assessment and Plan: * RUQ pain will f/u Amylase, lipase which are normal * LFTs are normal * GI outpatient: Braxton/Amy; previously treated Hepatitis C Status: Chronic (16) History of back pain Assessment and Plan: * held Magnesium oxide 400 mg BID * Tramadol 25 mg 1 tablet Q6hr for break through pain ordered 01/02 * On Lidoderm patch * likely secondary to lytic lesion likely secondary to Multiple Myeloma Status: Acute (17) Lower extremity pain Assessment and Plan: * Held Magnesium oxide 400 mg BID; Tramadol-Acetaminophen 32.5-325 mg 2 tablets Q6hr Status: Acute (18) Thrombocytopenia * held heparin * ordered for HIT antibiotics * Improved Status: Acute (19) Prophylactic measure Assessment and Plan: * DVT: SCDs b/l; d/c heparin 5000 units subq12 secondary to thrombocytopenia * GI: Pepcid 20mg PO was increased to 20 mg PO BID (01/06/17) * Monitor intake and output * Daily Weight * PT/OT eval Status: Acute Disposition: Patient was accepted to LTAC; Discussed with patient's brother, heme-onc, and left message with patient's PMD answering service. Patient to resume chemotherapy and dialysis.
[2017-01-09 16:31] VITALS: RESP 20
[2017-01-09 16:50] VITALS: O2SAT 98
--- NOTE | 2017-01-09 16:54 | PCM.HF ---
Heart Failure Core Measure - Heart Failure Ejection Fraction: 40 % or Greater (diastolic dysfunction, LVEF 60% on 12/27/16) Left Ventricular Function to be assessed after discharge: No ОЛЕГ Inhibitor Prescribed: No Contraindication/Reason for not providing: Held due to acute renal failure Beta-Aftab Prescribed: Metoprolol Succinate Angiotensin II Receptor Aftab Prescribed: No Contraindication/Reason for not providing: Held due to acute renal failure AnticoagulationTherapy for Atrial Fibrillation/Atrialflutter: No Contraindication/Reason for not providing: n/a Aldosterone Antagonist Prescribed: No Contraindication/Reason for not providing: n/a Hydralazine Nitrate Prescribed: No Contraindication/Reason for not providing: n/a Implantable Cardioverter Defibrillator Therapy: No Contraindication/Reason for not providing: n/a Cardiac Resynchronization Therapy Prescribed: No Contraindication/Reason for not providing: n/a - Follow up Will be discharged to: Assisted Facility Follow Up Date (must be within 7 days from discharge): 01/16/17 Follow Up Time: 09:00
[2017-01-09] MEDS ORDERED: Albumin Human 25% (12.5 gm/50 ml) IV ONE (17:02)
[2017-01-09 18:44] VITALS: BP 87/41; PULSE 80; TEMP 98.3
[2017-01-10 22:42] LABS: HEPARIN-IND PLATELET AB Negative (Negative)
[2017-01-10 22:42] LABS: RESULT Negative (Negative)
[2017-01-11 18:01] LABS: UFH SRA RESULT Negative (Negative)
[2017-01-11 18:01] LABS: UFH SRA RESULT Negative (Negative)
== END 2017-01-09 20:00 | DRG 840 ==
LOC: C.ER 13:01 → C.9E 15:42 → C.9I 16:40 → C.3T 01-07 12:05
PROVIDERS: ADMIT Hospitalist; ATTEND Hospitalist
PROC: 02HV33Z Insertion of Infusion Device into Superior Vena Cava, Percutaneous Approach (ICD-10-PCS; 2016-12-25)
PROC: B5181ZA Fluoroscopy of Superior Vena Cava using Low Osmolar Contrast, Guidance (ICD-10-PCS; 2016-12-25)
PROC: 5A1D60Z (ICD-10-PCS; principal; 2016-12-25 13:30)
PROC: 30233N1 Transfusion of Nonautologous Red Blood Cells into Peripheral Vein, Percutaneous Approach (ICD-10-PCS; 2017-01-01)
PROC: 07DR3ZX Extraction of Iliac Bone Marrow, Percutaneous Approach, Diagnostic (ICD-10-PCS; 2017-01-03)
PROC: 0JH60WZ Insertion of Totally Implantable Vascular Access Device into Chest Subcutaneous Tissue and Fascia, Open Approach (ICD-10-PCS; 2017-01-03)
PROC: 02HV33Z Insertion of Infusion Device into Superior Vena Cava, Percutaneous Approach (ICD-10-PCS; 2017-01-03)
PROC: B5181ZA Fluoroscopy of Superior Vena Cava using Low Osmolar Contrast, Guidance (ICD-10-PCS; 2017-01-03)
PROC: 5A2204Z Restoration of Cardiac Rhythm, Single (ICD-10-PCS; 2017-01-04)
PROC: 3E04305 Introduction of Other Antineoplastic into Central Vein, Percutaneous Approach (ICD-10-PCS; 2017-01-04)
DX: C90.00 Multiple myeloma not having achieved remission (principal); I50.33 Acute on chronic diastolic (congestive) heart failure; J96.01 Acute respiratory failure with hypoxia; N17.9 Acute kidney failure, unspecified; J18.9 Pneumonia, unspecified organism; E11.22 Type 2 diabetes mellitus with diabetic chronic kidney disease; I13.0 Hypertensive heart and chronic kidney disease with heart failure and stage 1 through stage 4 chronic kidney disease, or unspecified chronic kidney disease; D69.6 Thrombocytopenia, unspecified; J44.0 Chronic obstructive pulmonary disease with (acute) lower respiratory infection; E11.65 Type 2 diabetes mellitus with hyperglycemia; E27.40 Unspecified adrenocortical insufficiency; I48.91 Unspecified atrial fibrillation; B19.20 Unspecified viral hepatitis C without hepatic coma; D63.1 Anemia in chronic kidney disease; E03.9 Hypothyroidism, unspecified; E78.5 Hyperlipidemia, unspecified; E83.52 Hypercalcemia; G89.29 Other chronic pain; I27.2 Other secondary pulmonary hypertension; I34.0 Nonrheumatic mitral (valve) insufficiency; J84.10 Pulmonary fibrosis, unspecified; K29.70 Gastritis, unspecified, without bleeding; K59.00 Constipation, unspecified; N18.9 Chronic kidney disease, unspecified; T38.0X5A Adverse effect of glucocorticoids and synthetic analogues, initial encounter; Z79.4 Long term (current) use of insulin; Z79.84 Long term (current) use of oral hypoglycemic drugs; Z80.0 Family history of malignant neoplasm of digestive organs; Z86.73 Personal history of transient ischemic attack (TIA), and cerebral infarction without residual deficits; Z87.891 Personal history of nicotine dependence

== ENCOUNTER 2017-03-27 10:07 | Day surgery (SDC) | payer MEDICARE ==
[2017-03-22 08:06] VITALS: BMI 31.3
[2017-03-27 11:15] LABS: CALCIUM 8.6 mg/dl (8.6-10.4); POTASSIUM 3.7 mmol/L (3.6-5.2)
[2017-03-27] MEDS ORDERED: HEPARIN-NS 5,000 UNITS/500 ML 5,000 UNIT/500 ML BAG IV ONE (11:46)
[2017-03-27] MEDS ORDERED: ceFAZolin IV 1 gm in Dextrose 1 GM/50 ML BAG IVPB ONE (11:46)
[2017-03-27] MEDS ORDERED: ceFAZolin IV 2 gm in Dextrose 0 GM/0 ML BAG IVPB ONE (11:46)
[2017-03-27] MEDS ORDERED: Lidocaine 1% Inj (20ml) ONE (11:46)
[2017-03-27] MEDS ORDERED: Propofol 10 mg/ml Inj (20 ML) ONE (12:07)
[2017-03-27] MEDS ORDERED: Lidocaine Hydrochloride 5 ML INJ ONE (12:07)
[2017-03-27] MEDS ORDERED: Sodium Chloride 0.9% 250 ML IV ONE ×2 (12:11→14:00)
[2017-03-27] MEDS ORDERED: Lidocaine 2% Inj (20ml) ONE (12:14)
[2017-03-27] MEDS ORDERED: Bupivacaine HCl 0.25% PF (10 ml) Inj ONE (12:14)
[2017-03-27] MEDS ORDERED: Midazolam 2 MG/2 ML VIAL ONE (12:38)
--- NOTE | 2017-03-27 14:52 | PCM.SURG1 ---
Surgeon's Initial Post Op Note - Surgeon's Notes Surgeon: Dr Ontiveros Special Diet Cook: Dr Shell Type of Anesthesia: Block Regional, IV Sedation, Local Pre-Operative Diagnosis: renal failure, multiple myeloma Operative Findings: see report Post-Operative Diagnosis: as above Operation Performed: left arm AVF. supraclavicular nerve block Specimen/Specimens Removed: none Estimated Blood Loss: EBL {In ML}: 50 Blood Products Given: N/A Drains Used: No Drains Post-Op Condition: Good Date of Surgery/Procedure: 03/27/17 Time of Surgery/Procedure: 14:51
[2017-03-27 15:49] VITALS: O2SAT 95
[2017-03-27 16:26] VITALS: RESP 16; TEMP 97.1
[2017-03-27 16:29] VITALS: BP 120/46; PULSE 86
--- NOTE | 2017-03-27 22:37 | OP ---
PROCEDURE DATE: 03/27/2017 PREOPERATIVE DIAGNOSIS: Renal failure. POSTOPERATIVE DIAGNOSIS: Renal failure. PROCEDURE CARRIED OUT: Brachiocephalic fistula, left elbow. SURGEON: Murtaza Ontiveros Jr., MD. VIDEO CONTROL ENGINEER: Dr. Licea. ANESTHESIA ADMINISTERED BY: Mr. Charlton. INDICATIONS: The patient is an 82-year-old woman, recently diagnosed with myelomas, started on dialysis. At that time, she was restricted to consider for a permanent access. OPERATIVE FINDINGS: The cephalic vein was of good size and a spatulated end-to-side anastomosis was carried out to the mid portion of the brachial artery above the bifurcation. At the end of procedure, a good flow to the fistula with a palpable pulse of the wrist. There was a blood loss of 50 mL. DESCRIPTION OF PROCEDURE: The patient was given local anesthesia as well as a block provided by the anesthesiologist. An incision was made directly over the vein, which had been marked on the skin. We dissected down to the surrounding tissues, ligated multiple branches of the vein and then carried out an end of the cephalic vein was spatulated and anastomosed to the adjacent artery. At the end of the procedure, after we obtained hemostasis, there was a pulse of the wrist and good flow to the fistula. There were no operative complications. The operation carried out is brachiocephalic fistula, left elbow. Murtaza Ontiveros Jr., MD cc: MD Paris Lee MD
== END 2017-03-27 16:19 | disposition home or self-care (01) ==
LOC: C.SDS 10:07
PROVIDERS: ATTEND Surgery Vascular Surgery
DX: N18.6 End stage renal disease (principal); C90.00 Multiple myeloma not having achieved remission
CPT/HCPCS: 36415; 36821; 80048; 82948; J0690; J1644; J2250; J2704; J3010; J7040

== ENCOUNTER 2017-05-15 09:57 | Day surgery (SDC) | payer MEDICARE ==
[2017-03-22 08:04] VITALS: BMI 31.3
[2017-05-15 10:58] LABS: ALB/GLOB RATIO 1.3 (1.0-2.1); ALBUMIN 3.8 g/dL (3.5-5.0); CALCIUM 8.6 mg/dl (8.6-10.4)
[2017-05-15] MEDS ORDERED: ceFAZolin IV 1 gm in Dextrose 1 GM/50 ML BAG IVPB ONE (11:46)
[2017-05-15] MEDS ORDERED: HEPARIN-NS 5,000 UNITS/500 ML 5,000 UNIT/500 ML BAG IV ONE (11:47)
[2017-05-15] MEDS ORDERED: Lidocaine 1% Inj (20ml) ONE (11:47)
[2017-05-15] MEDS ORDERED: Iodixanol 320 MG/ML 200 ML BOTTLE IV ONE (11:48)
[2017-05-15] MEDS ORDERED: Sodium Chloride 0.9% 1,000 ML IV ONE (12:00)
--- NOTE | 2017-05-15 12:00 | CP.SDSHP ---
Same Day Surgery H & P - History Proposed Procedure: AVF Revision Pre-Op Diagnosis: AVF Perianastomotic stenosis - Previous Medical/Surgical History Cardiac: Hypertension, Hx of CHF, Other (AFIB) Endocrine/Metabolic: Thyroid Disease Comments: PMD: Dr. Winkler. PMHx: CHF, A-Fib, HTN, Anemia, DM, hypothyroidism, Gastritis, Hepatitis C (treated). PSH: Breast lipoma removal, EGD, Laparoscopic Enteroscopy in 2017 revealing gastritis and hiatal hernia but no bleeding. Allergies: denies. Social Hx: Former smoker- smoked 5 cigarettes per day for 5 years, quit 40 years ago. Denies alcohol and drugs. Lives with brother. Family Hx: Mother- Stroke in her 80s. Sister- colon cancer at 81 years old. Brother-pancreatic cancer at 85 years old. - Allergies Allergies: Allergies No Known Allergies Allergy (Verified 12/01/16 07:55) - Physical Exam Vital Signs: Vital Signs 05/15/17 10:10 Temperature 98.3 F Pulse Rate 95 H Respiratory 18 Rate Blood Pressure 134/82 O2 Sat by Pulse 97 Oximetry Mental Status: Alert & Oriented x3 Neuro: WNL Heart: WNL GI: WNL - {Optional Preform as Required} Abdomen: WNL - Impression Impression: Well apearing female stable for surgery Pt. Evaluated Today:Candidate for Anesthesia & Procedure: Yes - Date & Time Date: 05/15/17 Time: 12:00 Short Stay Discharge - Short Stay Discharge Admitting Diagnosis/Reason for Visit: RENAL FAILURE Disposition: HOME/ ROUTINE Follow-up: 10-14 days Instructions: Arteriovenous Fistula Creation for Hemodialysis (DC)
[2017-05-15] MEDS ORDERED: Propofol 10 mg/ml Inj (20 ML) ONE (12:11)
[2017-05-15] MEDS ORDERED: ePHEDrine 50 mg/ml Inj ONE (12:43)
[2017-05-15] MEDS ORDERED: Neostigmine Methylsulfate 3mg/3ml Syringe IV ONE (13:37)
[2017-05-15] MEDS ORDERED: Sodium Chloride 0.45% 500 ML IV ONE (14:56)
--- NOTE | 2017-05-15 15:02 | PCM.SURG1 ---
Surgeon's Initial Post Op Note - Surgeon's Notes Surgeon: Dr. Ontiveros Harness Inspector: Dr. Yepez Type of Anesthesia: General Endo Pre-Operative Diagnosis: Left arm brachiocephalic avf with anastomotic stricture Operative Findings: See operative dictation Post-Operative Diagnosis: Left arm brachiocephalic avf with anastomotic stricture Operation Performed: Cephalic Vein transposition, with balloon angioplasty of arteriovenous stricture Specimen/Specimens Removed: None Estimated Blood Loss: EBL {In ML}: 150 Blood Products Given: N/A Drains Used: No Drains Post-Op Condition: Good Date of Surgery/Procedure: 05/15/17 Time of Surgery/Procedure: 15:02
[2017-05-15 16:30] VITALS: RESP 16
--- NOTE | 2017-05-15 16:36 | RAD ---
PROCEDURE: HISTORY: As Above COMPARISON: None TECHNIQUE: Total fluoroscopic time utilized during the procedure: 142.9 seconds. Total dose 7.13 mGy cm squared FINDINGS: Submitted images from the current procedure: 10 ; -3 with definable anatomy Please refer to the physician's notes performing the procedure. IMPRESSION: Less than 1 hour fluoroscopic time utilized during performance of the procedure
[2017-05-15 16:57] VITALS: BP 103/54; PULSE 97; TEMP 98.4; O2SAT 95
--- NOTE | 2017-05-16 02:25 | OP ---
PROCEDURE DATE: 05/15/2017 PREOPERATIVE DIAGNOSIS: Renal failure, immature fistula of left arm. PROCEDURE CARRIED OUT: Cephalic vein transposition, left arm, with intraoperative arteriogram and balloon angioplasty using a 4 mm balloon of the arterial anastomosis. SURGEON: Murtaza Ontiveros Jr., MD. FURNACE CHARGER: Dr. Lizarraga. ANESTHESIA ADMINISTERED BY: Laura Wood CRNA. INDICATIONS: The patient is an older woman with history of myeloma, renal failure, presently dialyzed by means of catheter. OPERATIVE FINDINGS: The fistula was dissected free from its surrounding tissues and mobilized. After this had been done, we then identified the entire graft and mobilized. This is of good size over 6 mm in diameter without any significant narrowing or problems. After we completely mobilized this, we then took a retrograde angiogram, looking at the arterial anastomosis based on preoperative duplex imaging which showed that there was severe stenosis at the arterial anastomosis. This demonstrated that there was approximately a 60% stenosis of the arterial anastomosis, which was dilated initially with a 3 mm and then with a 4 mm balloon. This did not appear to make much cosmetic difference in the appearance of the stenosis. Nonetheless, I felt with a 4-mm channel we were adequate. We then applied pressure to the puncture site, which was done with a 5 Georgian sheath from above. The central veins did not have any appreciable difficulty or abnormalities. We did visualize the Port-A-Cath on the left side. The procedure was then terminated and pressure was applied to the site, after the wound was closed and the vein was elevated. Blood loss due to procedure was over 150 mL. Operation carried out, cephalic vein transposition left arm and fistulogram with balloon angioplasty of arterial anastomosis. Murtaza Ontiveros Jr., MD
== END 2017-05-15 16:48 | disposition home or self-care (01) ==
LOC: C.SDS 09:57
PROVIDERS: ATTEND Surgery Vascular Surgery
DX: T82.858A Stenosis of other vascular prosthetic devices, implants and grafts, initial encounter (principal); T82.898A Other specified complication of vascular prosthetic devices, implants and grafts, initial encounter; N18.6 End stage renal disease; Y83.2 Surgical operation with anastomosis, bypass or graft as the cause of abnormal reaction of the patient, or of later complication, without mention of misadventure at the time of the procedure; I13.2 Hypertensive heart and chronic kidney disease with heart failure and with stage 5 chronic kidney disease, or end stage renal disease; E11.22 Type 2 diabetes mellitus with diabetic chronic kidney disease; I50.9 Heart failure, unspecified; E03.9 Hypothyroidism, unspecified; I48.91 Unspecified atrial fibrillation; Z79.899 Other long term (current) drug therapy
CPT/HCPCS: 36415; 36832; 36902; 80053; 82948; C1894; J0690; J2405; J2704; J2710; J3010; J7030; J7040; Q9966

== ENCOUNTER 2017-06-04 19:32 | Inpatient (IN) | payer MEDICARE ==
[2017-06-04 19:33] VITALS: BMI 31.3
--- NOTE | 2017-06-04 20:27 | C.PDOC ---
History Of Present Illness 82 year old female presents to the ED for evaluation of shortness of breath and productive cough for the past 5 days. Per patients family at bedside, the patient had similar symptoms 10 days ago which resolved with antibiotics. Patient is on home O2. Patient on dialysis, last dialyzed this morning. Patient has history of multiple myeloma and is on chemotherapy. Chief Complaint (Nursing): Shortness Of Breath History Per: Patient, Family Onset/Duration Of Symptoms: Days Current Symptoms Are (Timing): Still Present Initiating Event: Upper Respiratory Illness Current Respiratory Medications: See Home Med List Associated Symptoms: Productive Cough Past Medical History Reviewed: Historical Data, Nursing Documentation, Vital Signs Vital Signs: Last Vital Signs Temp 98.8 F 06/05/17 02:33 Pulse 97 H 06/05/17 02:33 Resp 20 06/05/17 02:33 BP 114/57 L 06/05/17 02:33 Pulse Ox 95 06/05/17 02:33 - Medical History PMH: Anemia, Arthritis, Atrial Fibrillation, Cardia Arrhythmia, CHF, HTN, Hypercholesterolemia, Hyperlipidemia, Hypothyroidism, End Stage Renal Disease, Chronic Kidney Disease Surgical History: Endoscopy - [facility] Procedures EXCISION OF STOMACH, ENDO, DIAGN (06/28/16) EXTRACTION OF ILIAC BONE MARROW, PERC APPROACH, DIAGN (12/25/16) FLUOROSCOPY OF SUP VENA CAVA USING L OSM CONTRAST, GUIDANCE (12/25/16) INSERT VAD RESERVOIR IN CHEST SUBCU/FASCIA, OPEN (12/25/16) INSERTION OF INFUSION DEV INTO SUP VENA CAVA, PERC APPROACH (12/25/16) INSPECTION OF LOWER INTESTINAL TRACT, ENDO (06/28/16) INSPECTION OF UPPER INTESTINAL TRACT, ENDO (09/25/16) INTRODUCE OTH ANTINEOPLASTIC IN CENTRAL VEIN, PERC (12/25/16) PERFORMANCE OF URINARY FILTRATION, MULTIPLE (12/25/16) CATHOLIC OF CARDIAC RHYTHM, SINGLE (12/25/16) TRANSFUSE NONAUT RED BLOOD CELLS IN PERIPH VEIN, PERC (12/25/16) Family History: States: Unknown Family Hx - Social History Hx Tobacco Use: No Hx Alcohol Use: No Hx Substance Use: No - Immunization History Hx Tetanus Toxoid Vaccination: Yes Hx Influenza Vaccination: Yes Hx Pneumococcal Vaccination: Yes Review Of Systems Except As Marked, All Systems Reviewed And Found Negative. Constitutional: Negative for: Fever, Chills ENT: Negative for: Ear Pain, Throat Pain Cardiovascular: Negative for: Chest Pain Respiratory: Positive for: Cough, Shortness of Breath, Sputum Gastrointestinal: Negative for: Nausea, Vomiting, Abdominal Pain, Diarrhea Musculoskeletal: Positive for: Back Pain Skin: Negative for: Rash Neurological: Negative for: Weakness, Numbness Physical Exam - Physical Exam Appears: Well, No Acute Distress Skin: Normal Color, Warm, Dry Head: Atraumatic, Normacephalic Eye(s): bilateral: Normal Inspection, PERRL, EOMI Nose: Normal Oral Mucosa: Moist Lips: Normal Appearing Throat: Normal Neck: Normal, Normal ROM, Supple Cardiovascular: Rhythm Regular (tachycardic rate) Respiratory: Decreased Breath Sounds, Other (borderline hypoxic on 6L O2) Gastrointestinal/Abdominal: Soft, No Tenderness Back: Normal Inspection Extremity: Normal ROM, Other (lower extemities cyanotic, distal pulses diminished bilaterally) Neurological/Psych: Oriented x3, Normal Speech ED Course And Treatment - Laboratory Results Result Diagrams: 06/04/17 20:40 06/04/17 21:49 ECG: Interpreted By Me, Viewed By Me, Discussed With Financial Retirement Plan Specialist Interpretation Of ECG: Sinus tachycardia with frequent PACs at rate of 119 per minute, no acute ischemic changes, left axis deviation. No old EKGs for comparison O2 Sat by Pulse Oximetry: 82 Disposition - Disposition Disposition: HOSPITALIZED Disposition Time: 03:16 Condition: FAIR - Clinical Impression Clinical Impression: Respiratory tract infection, Bronchitis - Scribe Statement The provider has reviewed the documentation as recorded by the Scribe The provider has reviewed the documentation as recorded by the Scribe (Axel Tran) Provider Attestation: All medical record entries made by the Scribe were at my direction and personally dictated by me. I have reviewed the chart and agree that the record accurately reflects my personal performance of the history, physical exam, medical decision making, and the department course for this patient. I have also personally directed, reviewed, and agree with the discharge instructions and disposition.
[2017-06-04 20:55] LABS: BASO # 0.1 K/uL (0.0-0.2); BASO % 0.4 % (0.0-2.0); EOS % 0.1 % (0.0-4.0); HEMOGLOBIN 12.4 g/dL (11.0-16.0); LYMPH # 1.2 K/uL (1.0-4.3); LYMPH % 5.5 % (20.0-40.0); MEAN CELL VOLUME 94.6 fL (81.0-99.0); MEAN CORPUSCULAR HEMOGLOBIN 30.5 pg (27.0-31.0); MEAN CORPUSCULAR HGB CONC 32.3 g/dL (33.0-37.0); MEAN PLATELET VOLUME 11.1 fL (7.2-11.7); MONO # 1.1 K/uL (0.0-0.8); MONO % 4.8 % (0.0-10.0); NEUT % 89.2 % (50.0-75.0); PLATELET COUNT 133 K/uL (130-400); RBC 4.06 Mil/uL (3.80-5.20); RED CELL DISTRIBUTION WIDTH 17.1 % (11.5-14.5); WHITE BLOOD COUNT 22.4 K/uL (4.8-10.8)
[2017-06-04 21:00] LABS: INR 1.3; PROTHROMBIN TIME 14.3 SECONDS (9.7-12.2)
[2017-06-04] MEDS ORDERED: Albuterol 0.083% Inhal Sol (2.5 mg/3 mL) UD INH STA (21:03)
[2017-06-04 21:52] LABS: BANDS 3 % (0-2); LYMPHOCYTE 1 % (20-40); MONOCYTE 7 % (0-10); NEUTROPHIL 89 % (50-75); PLATELET ESTIMATE NORMAL (NORMAL); TOTAL CELLS COUNTED 100
[2017-06-04 21:53] LABS: HYPOCHROMIC SLIGHT; MICROCYTOSIS SLIGHT; POLYCHROMIC SLIGHT
[2017-06-04 22:10] LABS: ALB/GLOB RATIO 1.1 (1.0-2.1); ALBUMIN 3.7 g/dL (3.5-5.0); CALCIUM 8.9 mg/dl (8.6-10.4)
[2017-06-04] MEDS ORDERED: guaiFENesin 100 mg/5 ml Syrup UD PO STA (22:14)
[2017-06-04] MEDS ORDERED: guaiFENesin 100 mg/5 ml Syrup UD ONE (22:19)
[2017-06-04 22:25] LABS: CK-MB 0.41 ng/mL (0.0-3.38); TROPONIN I 0.033 ng/mL (0.00-0.120)
--- NOTE | 2017-06-04 23:56 | CP.PCM.HP ---
Past Patient History - Infectious Disease Hx of Infectious Diseases: None - Past Medical History & Family History Past Medical History?: Yes - Past Social History Smoking Status: Former Smoker - CARDIAC Hx Atrial Fibrillation: Yes Hx Cardia Arrhythmia: Yes Hx Congestive Heart Failure: Yes Hx Hypercholesterolemia: Yes Hx Hypertension: Yes - NEUROLOGICAL Hx Neurological Disorder: No - HEENT Hx HEENT Problems: Yes Hx Cataracts: Yes (bilateral) - RENAL Hx Chronic Kidney Disease: Yes - ENDOCRINE/METABOLIC Hx Hypothyroidism: Yes - HEMATOLOGICAL/ONCOLOGICAL Hx Anemia: Yes - INTEGUMENTARY Hx Dermatological Problems: No - MUSCULOSKELETAL/RHEUMATOLOGICAL Hx Arthritis: Yes - GASTROINTESTINAL Hx Gastrointestinal Disorders: Yes Hx Hemorrhoids: Yes - GENITOURINARY/GYNECOLOGICAL Hx Genitourinary Disorders: No - PSYCHIATRIC Hx Substance Use: No - SURGICAL HISTORY Hx Surgeries: Yes Hx Arteriovenous Shunt: Yes (LEFT ARM AV ,permacath) Hx Vascular Access Device: Yes (perma cath elaina cath) - ANESTHESIA Hx Anesthesia: Yes Hx Anesthesia Reactions: No Hx Malignant Hyperthermia: No Meds Allergies/Adverse Reactions: Allergies Allergy/AdvReac Type Severity Reaction Status Date / Time No Known Allergies Allergy Verified 06/04/17 19:45 Results - Vital Signs Recent Vital Signs: Last Vital Signs Temp 98.2 F 06/04/17 19:39 Pulse 111 H 06/04/17 21:32 Resp 16 06/04/17 21:32 BP 106/48 L 06/04/17 21:32 Pulse Ox 95 06/04/17 21:32 - Labs Result Diagrams: 06/04/17 20:40 06/04/17 21:49 Labs: Laboratory Results - last 24 hr 06/04/17 06/04/17 06/04/17 20:40 20:40 20:44 WBC 22.4 H RBC 4.06 Hgb 12.4 Hct 38.4 MCV 94.6 MCH 30.5 MCHC 32.3 L RDW 17.1 H Plt Count 133 MPV 11.1 Neut % (Auto) 89.2 H Lymph % (Auto) 5.5 L [place] % (Auto) 4.8 Eos % (Auto) 0.1 Baso % (Auto) 0.4 Neut # (Auto) 20.0 H Lymph # (Auto) 1.2 [place] # (Auto) 1.1 H Eos # (Auto) 0.0 Baso # (Auto) 0.1 Neutrophils % (Manual) 89 H Band Neutrophils % 3 H Lymphocytes % (Manual) 1 L Monocytes % (Manual) 7 Platelet Estimate Normal Polychromasia Slight Hypochromasia (manual) Slight Microcytosis (manual) Slight PT 14.3 H INR 1.3 APTT 30 Sodium Potassium Chloride Carbon Dioxide Anion Gap BUN Creatinine Est GFR ( Amer) Est GFR (Non-Af Amer) Random Glucose Calcium Total Bilirubin AST ALT Alkaline Phosphatase CK-MB (Mass) Troponin I NT-Pro-B Natriuret Pep Total Protein Albumin Globulin Albumin/Globulin Ratio Influenza Typ A,B (EIA) Negative for flu a/b 06/04/17 21:49 WBC RBC Hgb Hct MCV MCH MCHC RDW Plt Count MPV Neut % (Auto) Lymph % (Auto) [place] % (Auto) Eos % (Auto) Baso % (Auto) Neut # (Auto) Lymph # (Auto) [place] # (Auto) Eos # (Auto) Baso # (Auto) Neutrophils % (Manual) Band Neutrophils % Lymphocytes % (Manual) Monocytes % (Manual) Platelet Estimate Polychromasia Hypochromasia (manual) Microcytosis (manual) PT INR APTT Sodium 135 Potassium 4.1 Chloride 91 L Carbon Dioxide 34 H Anion Gap 14 BUN 29 H Creatinine 2.7 H Est GFR ( Amer) 21 Est GFR (Non-Af Amer) 17 Random Glucose 293 H Calcium 8.9 Total Bilirubin 0.3 AST 25 ALT 21 Alkaline Phosphatase 76 CK-MB (Mass) 0.41 Troponin I 0.0330 NT-Pro-B Natriuret Pep 3020 H Total Protein 7.2 Albumin 3.7 Globulin 3.5 Albumin/Globulin Ratio 1.1 Influenza Typ A,B (EIA)
[2017-06-05] MEDS: Albuterol-Ipratrop 3 mg / 0.5 (3 ml) UD INH SCH ×4 (02:06→21:23)
[2017-06-05] MEDS: Promethazine/Cod 6.25mg-10mg/5ml Syr UD PO SCH ×2 (02:47→09:54)
[2017-06-05] MEDS: Levothyroxine 75 MCG TAB PO SCH (06:21)
[2017-06-05] MEDS: (Novolog) Insulin Aspart, Recombinant 100 u/ml 10 ml vial SC SCH ×4 (07:37→21:34)
--- NOTE | 2017-06-05 08:45 | RAD ---
Chest x-ray single frontal view History: Shortness breath. Comparison: 03/22/2017 Findings Lines and tubes in stable position. Diffuse increased interstitial lung markings. Right hilar prominence. Patchy consolidative changes at both lung bases with blunted bilateral costophrenic angles. Additional consolidative change at the medial left lower lung zone. Calcification at the aortic knob. Tortuous aorta. Degenerative changes in the spine and shoulders. Impression: Lines and tubes in stable position. Diffuse increased interstitial lung markings. Right hilar prominence. Patchy consolidative changes at both lung bases with blunted bilateral costophrenic angles. Additional consolidative change at the medial left lower lung zone. Calcification at the aortic knob.
[2017-06-05] MEDS: Pantoprazole 40 mg EC Tab PO SCH (09:54)
[2017-06-05] MEDS: Azithromycin 500 MG in Sodium Chloride 0.9% 250 ML IVPB SCH (11:36)
--- NOTE | 2017-06-05 12:34 | CARD ---
APPROVED REPORT EKG Measurement Heart [id number] <Conclusion> Sinus tachycardia Possible Inferior infarct, age undetermined Abnormal ECG
[2017-06-05] MEDS: Promethazine/Cod 6.25mg-10mg/5ml Syr UD PO PRN ×2 (13:37→17:32)
--- NOTE | 2017-06-05 16:28 | CP.PCM.PN ---
Subjective - Date & Time of Evaluation Date of Evaluation: 06/05/17 Time of Evaluation: 09:20 - Subjective Subjective: clinically same Objective - Vital Signs/Intake and Output Vital Signs (last 24 hours): Temp Pulse Resp BP Pulse Ox 98.7 F 101 H 20 121/61 87 L 06/05/17 08:39 06/05/17 16:15 06/05/17 16:15 06/05/17 16:15 06/05/17 16:15 Intake and Output: 06/05/17 06/05/17 06:59 18:59 Intake Total 910 Balance 910 - Medications Medications: Current Medications Albuterol/Ipratropium (Duoneb 3 Mg/0.5 Mg (3 Ml) Ud) 3 ml INH RQ6 [facility] Last Admin: 06/05/17 14:13 Dose: 3 ml Calcium Acetate (Phoslo) 667 mg PO BID [facility] Last Admin: 06/05/17 09:54 Dose: 667 mg Docusate Sodium (Colace) 100 mg PO TID [facility] Last Admin: 06/05/17 13:34 Dose: 100 mg Famotidine (Pepcid) 20 mg PO DAILY [facility] Last Admin: 06/05/17 09:54 Dose: 20 mg Ferrous Sulfate (Feosol) 325 mg PO DAILY [facility] Last Admin: 06/05/17 09:53 Dose: 325 mg Glipizide (Glucotrol) 10 mg PO DAILY [facility] Last Admin: 06/05/17 09:53 Dose: 10 mg Heparin Sodium (Porcine) (Heparin) 5,000 units SC Q8 [facility] Last Admin: 06/05/17 13:34 Dose: 5,000 units Ceftriaxone Sodium 1 gm/ (Sodium Chloride) 100 mls @ 100 mls/hr IVPB DAILY [facility] Last Admin: 06/05/17 09:54 Dose: 100 mls/hr Azithromycin 500 mg/ Sodium (Chloride) 250 mls @ 250 mls/hr IVPB DAILY [facility] Last Admin: 06/05/17 11:36 Dose: 250 mls/hr Insulin Aspart (Novolog) 0 unit SC ACHS [facility] PRN Reason: Protocol Last Admin: 06/05/17 12:04 Dose: 4 unit Levothyroxine Sodium (Synthroid) 75 mcg PO DAILY@0630 [facility] Last Admin: 06/05/17 06:21 Dose: 75 mcg Metoprolol Tartrate (Lopressor) 25 mg PO BID [facility] Last Admin: 06/05/17 09:53 Dose: 25 mg Pantoprazole Sodium (Protonix Ec Tab) 40 mg PO DAILY [facility] Last Admin: 06/05/17 09:54 Dose: 40 mg Promethazine HCl/Codeine (Phenergan/Codeine Oral Syrup) 5 ml PO TID PRN PRN Reason: Cough Last Admin: 06/05/17 13:37 Dose: 5 ml Rosuvastatin Calcium (Crestor) 5 mg PO HS [facility] - Labs Labs: 06/04/17 20:40 06/04/17 21:49 PT 14.3 SECONDS (9.7-12.2) H 06/04/17 20:40 INR 1.3 06/04/17 20:40 APTT 30 SECONDS (21-34) 06/04/17 20:40 - Constitutional Appears: Well - Head Exam Head Exam: ATRAUMATIC, NORMAL INSPECTION, NORMOCEPHALIC - Eye Exam Eye Exam: EOMI, Normal appearance, PERRL Pupil Exam: NORMAL ACCOMODATION, PERRL - ENT Exam ENT Exam: Mucous Membranes Moist, Normal Exam - Neck Exam Neck Exam: Full ROM, Normal Inspection. absent: Lymphadenopathy - Respiratory Exam Respiratory Exam: Decreased Breath Sounds - Cardiovascular Exam Cardiovascular Exam: REGULAR RHYTHM, +S1, +S2 - GI/Abdominal Exam GI & Abdominal Exam: Soft, Diminished Bowel Sounds - Rectal Exam Rectal Exam: Deferred
[2017-06-06] MEDS: Albuterol-Ipratrop 3 mg / 0.5 (3 ml) UD INH SCH ×4 (03:02→20:02)
[2017-06-06] MEDS: Promethazine/Cod 6.25mg-10mg/5ml Syr UD PO PRN ×3 (06:12→21:23)
[2017-06-06] MEDS: Levothyroxine 75 MCG TAB PO SCH (06:15)
[2017-06-06] MEDS: (Novolog) Insulin Aspart, Recombinant 100 u/ml 10 ml vial SC SCH ×4 (07:58→21:25)
[2017-06-06] MEDS: Pantoprazole 40 mg EC Tab PO SCH (09:29)
[2017-06-06] MEDS: Azithromycin 500 MG in Sodium Chloride 0.9% 250 ML IVPB SCH (09:54)
--- NOTE | 2017-06-06 13:58 | CP.PCM.PN ---
Subjective - Date & Time of Evaluation Date of Evaluation: 06/06/17 Time of Evaluation: 08:40 - Subjective Subjective: clinically same Objective - Vital Signs/Intake and Output Vital Signs (last 24 hours): Temp Pulse Resp BP Pulse Ox 98.1 F 86 20 119/91 H 95 06/06/17 09:10 06/06/17 09:10 06/06/17 09:10 06/06/17 09:29 06/06/17 09:10 Intake and Output: 06/06/17 06/06/17 06:59 18:59 Intake Total 370 Balance 370 - Medications Medications: Current Medications Albuterol/Ipratropium (Duoneb 3 Mg/0.5 Mg (3 Ml) Ud) 3 ml INH RQ6 [facility] Last Admin: 06/06/17 13:16 Dose: 3 ml Calcium Acetate (Phoslo) 667 mg PO BID [facility] Last Admin: 06/06/17 09:29 Dose: 667 mg Docusate Sodium (Colace) 100 mg PO TID [facility] Last Admin: 06/06/17 09:28 Dose: 100 mg Famotidine (Pepcid) 20 mg PO DAILY [facility] Last Admin: 06/06/17 09:30 Dose: 20 mg Ferrous Sulfate (Feosol) 325 mg PO DAILY [facility] Last Admin: 06/06/17 09:28 Dose: 325 mg Glipizide (Glucotrol) 10 mg PO DAILY [facility] Last Admin: 06/06/17 09:28 Dose: 10 mg Heparin Sodium (Porcine) (Heparin) 5,000 units SC Q8 [facility] Last Admin: 06/06/17 06:05 Dose: 5,000 units Ceftriaxone Sodium 1 gm/ (Sodium Chloride) 100 mls @ 100 mls/hr IVPB DAILY [facility] Last Admin: 06/06/17 11:15 Dose: 100 mls/hr Azithromycin 500 mg/ Sodium (Chloride) 250 mls @ 250 mls/hr IVPB DAILY [facility] Last Admin: 06/06/17 09:54 Dose: 250 mls/hr Insulin Aspart (Novolog) 0 unit SC ACHS [facility] PRN Reason: Protocol Last Admin: 06/06/17 11:59 Dose: Not Given Levothyroxine Sodium (Synthroid) 75 mcg PO DAILY@0630 [facility] Last Admin: 06/06/17 06:15 Dose: 75 mcg Metoprolol Tartrate (Lopressor) 25 mg PO BID [facility] Last Admin: 06/06/17 09:29 Dose: 25 mg Pantoprazole Sodium (Protonix Ec Tab) 40 mg PO DAILY [facility] Last Admin: 06/06/17 09:29 Dose: 40 mg Promethazine HCl/Codeine (Phenergan/Codeine Oral Syrup) 5 ml PO TID PRN PRN Reason: Cough Last Admin: 06/06/17 11:16 Dose: 5 ml Rosuvastatin Calcium (Crestor) 5 mg PO HS [facility] Last Admin: 06/05/17 21:34 Dose: 5 mg - Labs Labs: 06/04/17 20:40 06/04/17 21:49 PT 14.3 SECONDS (9.7-12.2) H 06/04/17 20:40 INR 1.3 06/04/17 20:40 APTT 30 SECONDS (21-34) 06/04/17 20:40 - Constitutional Appears: Well - Head Exam Head Exam: ATRAUMATIC, NORMAL INSPECTION, NORMOCEPHALIC - Eye Exam Eye Exam: EOMI, Normal appearance, PERRL Pupil Exam: NORMAL ACCOMODATION, PERRL - ENT Exam ENT Exam: Mucous Membranes Moist, Normal Exam - Neck Exam Neck Exam: Full ROM, Normal Inspection. absent: Lymphadenopathy - Respiratory Exam Respiratory Exam: Decreased Breath Sounds - Cardiovascular Exam Cardiovascular Exam: REGULAR RHYTHM, +S1, +S2 - GI/Abdominal Exam GI & Abdominal Exam: Soft, Diminished Bowel Sounds - Rectal Exam Rectal Exam: Deferred
--- NOTE | 2017-06-06 15:21 | CP.PCM.CON ---
History of Present Illness - History of Present Illness History of Present Illness: 82 year old female presents to the ED for evaluation of shortness of breath and productive cough for the past 5 days. Per patients family at bedside, the patient had similar symptoms 10 days ago which resolved with antibiotics. Patient is on home O2. Patient on dialysis, last dialyzed this morning. Patient has history of multiple myeloma and is on chemotherapy. Presents post dialysis with cough, increasing dysnea CXR with CHF On CTX for MM PMH: ESRD MULTIPLE PNEUMONIA DM 2 HTN DL HYPOTHROIDISM PSH: PERMCATH AV FISTULA AND REVISION Review of Systems - Constitutional Constitutional: Chills, Fatigue, Weakness - EENT Eyes: absent: As Per HPI, Blind Spots, Blurred Vision, Change in Vision, Decreased Night Vision, Diplopia, Discharge, Dry Eye, Exophthalmos, Floaters, Irritation, Itchy Eyes, Loss of Peripheral Vision, Pain, Photophobia, Requires Corrective Lenses, Sees Flashes, Spots in Vision, Tunnel Vision, Other Visual Disturbances, Loss of Vision, Other Ears: absent: As Per HPI, Decreased Hearing, Ear Discharge, Ear Pain, Tinnitus, Abnormal Hearing, Disequilibrium, Dizziness, Other Nose/Mouth/Throat: absent: As Per HPI, Epistaxis, Nasal Congestion, Nasal Discharge, Nasal Obstruction, Nasal Trauma, Nose Pain, Post Nasal Drip, Sinus Pain, Sinus Pressure, Bleeding Gums, Change in Voice, Dental Pain, Dry Mouth, Dysphagia, Halitosis, Hoarsness, Lip Swelling, Mouth Lesions, Mouth Pain, Odynophagia, Sore Throat, Throat Swelling, Tongue Swelling, Facial Pain, Neck Pain, Neck Mass, Other - Cardiovascular Cardiovascular: Dyspnea on Exertion, Edema - Respiratory Respiratory: Cough, Dyspnea - Gastrointestinal Gastrointestinal: absent: As Per HPI, Abdominal Pain, Belching, Bloating, Change in Bowel Habits, Change in Stool Character, Coffee Ground Emesis, Constipation, Cramping, Diarrhea, Dyspepsia, Dysphagia, Early Satiety, Excessive Flatus, Fecal Incontinence, Heartburn, Hematemesis, Hematochezia, Loose Stools, Melena, Nausea, Odynophagia, Temesmus, Vomiting, Other - Genitourinary Genitourinary: As Per HPI - Musculoskeletal Musculoskeletal: Muscle Cramps, Muscle Weakness, Myalgias - Neurological Neurological: Weakness Past Patient History - Infectious Disease Hx of Infectious Diseases: None - Past Medical History & Family History Past Medical History?: Yes - Past Social History Smoking Status: Former Smoker Chewing Tobacco Use: No Cigar Use: No Alcohol: None Drugs: Denies Home Situation {Lives}: With Family - CARDIAC Hx Congestive Heart Failure: Yes Hx Hypercholesterolemia: Yes Hx Hypertension: Yes - NEUROLOGICAL Hx Neurological Disorder: No - HEENT Hx HEENT Problems: Yes Hx Cataracts: Yes (bilateral) - RENAL Hx Chronic Kidney Disease: Yes - ENDOCRINE/METABOLIC Hx Hypothyroidism: Yes - HEMATOLOGICAL/ONCOLOGICAL Hx Anemia: Yes - INTEGUMENTARY Hx Dermatological Problems: No - MUSCULOSKELETAL/RHEUMATOLOGICAL Hx Arthritis: Yes - GASTROINTESTINAL Hx Gastrointestinal Disorders: Yes Hx Hemorrhoids: Yes - GENITOURINARY/GYNECOLOGICAL Hx Genitourinary Disorders: No - PSYCHIATRIC Hx Substance Use: No - SURGICAL HISTORY Hx Surgeries: Yes Hx Arteriovenous Shunt: Yes (LEFT ARM AV ,permacath) Hx Vascular Access Device: Yes (perma cath elaina cath) - ANESTHESIA Hx Anesthesia: Yes Hx Anesthesia Reactions: No Hx Malignant Hyperthermia: No Meds Allergies/Adverse Reactions: Allergies Allergy/AdvReac Type Severity Reaction Status Date / Time No Known Allergies Allergy Verified 06/04/17 19:45 - Medications Medications: Current Medications Albuterol/Ipratropium (Duoneb 3 Mg/0.5 Mg (3 Ml) Ud) 3 ml INH RQ6 [facility] Last Admin: 06/06/17 13:16 Dose: 3 ml Calcium Acetate (Phoslo) 667 mg PO BID [facility] Last Admin: 06/06/17 09:29 Dose: 667 mg Docusate Sodium (Colace) 100 mg PO TID [facility] Last Admin: 06/06/17 09:28 Dose: 100 mg Famotidine (Pepcid) 20 mg PO DAILY [facility] Last Admin: 06/06/17 09:30 Dose: 20 mg Ferrous Sulfate (Feosol) 325 mg PO DAILY [facility] Last Admin: 06/06/17 09:28 Dose: 325 mg Glipizide (Glucotrol) 10 mg PO DAILY [facility] Last Admin: 06/06/17 09:28 Dose: 10 mg Heparin Sodium (Porcine) (Heparin) 5,000 units SC Q8 [facility] Last Admin: 06/06/17 06:05 Dose: 5,000 units Ceftriaxone Sodium 1 gm/ (Sodium Chloride) 100 mls @ 100 mls/hr IVPB DAILY [facility] Last Admin: 06/06/17 11:15 Dose: 100 mls/hr Azithromycin 500 mg/ Sodium (Chloride) 250 mls @ 250 mls/hr IVPB DAILY [facility] Last Admin: 06/06/17 09:54 Dose: 250 mls/hr Insulin Aspart (Novolog) 0 unit SC ACHS [facility] PRN Reason: Protocol Last Admin: 06/06/17 11:59 Dose: Not Given Levothyroxine Sodium (Synthroid) 75 mcg PO DAILY@0630 [facility] Last Admin: 06/06/17 06:15 Dose: 75 mcg Metoprolol Tartrate (Lopressor) 25 mg PO BID [facility] Last Admin: 06/06/17 09:29 Dose: 25 mg Pantoprazole Sodium (Protonix Ec Tab) 40 mg PO DAILY [facility] Last Admin: 06/06/17 09:29 Dose: 40 mg Promethazine HCl/Codeine (Phenergan/Codeine Oral Syrup) 5 ml PO TID PRN PRN Reason: Cough Last Admin: 06/06/17 11:16 Dose: 5 ml Rosuvastatin Calcium (Crestor) 5 mg PO HS [facility] Last Admin: 06/05/17 21:34 Dose: 5 mg Physical Exam - Constitutional Appears: In Acute Distress, Chronically Ill - Head Exam Head Exam: ATRAUMATIC, NORMAL INSPECTION - Eye Exam Eye Exam: EOMI, Normal appearance - Neck Exam Neck exam: Positive for: Normal Inspection. Negative for: Tenderness - Respiratory Exam Respiratory Exam: Rhonchi, Respiratory Distress - Cardiovascular Exam Cardiovascular Exam: REGULAR RHYTHM, +S1 - GI/Abdominal Exam GI & Abdominal Exam: Soft. absent: Tenderness - Extremities Exam Extremities exam: Positive for: normal inspection. Negative for: tenderness - Neurological Exam Neurological exam: Alert, CN II-XII Intact - Skin Skin Exam: Dry, Warm Results - Vital Signs Recent Vital Signs: Last Vital Signs Temp 98.1 F 06/06/17 09:10 Pulse 86 06/06/17 09:10 Resp 20 06/06/17 09:10 BP 119/91 H 06/06/17 09:29 Pulse Ox 95 06/06/17 09:10 - Labs Result Diagrams: 06/04/17 20:40 06/04/17 21:49 Labs: Laboratory Results - last 24 hr 06/05/17 06/05/17 06/05/17 16:13 20:53 23:45 POC Glucose (mg/dL) 165 H 215 H 227 H 06/06/17 06/06/17 07:35 11:24 POC Glucose (mg/dL) 133 H 252 H Assessment & Plan (1) Acute bronchitis Status: Acute (2) CHF (congestive heart failure) Status: Acute (3) ESRD (end stage renal disease) Status: Acute (4) Multiple myeloma Status: Acute (5) Diabetes 1.5, managed as type 2 Status: Chronic (6) HTN (hypertension) Status: Chronic - Assessment and Plan (Free Text) Plan: IV ABs Dialysis with adequate UF
--- NOTE | 2017-06-06 23:08 | CON ---
DATE: 06/06/2017. 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 The patient is on dialysis. The patient is also receiving the treatment of Velcade, Cytoxan and prednisone every week, 4 weeks on, 1 week off. The patient is clinically improved. Protein is normalized. Multiple myeloma is in remission. Last week, the patient was complaining of some dry cough. Eventually, the patient's shortness of breath and cough increased, so was admitted possible bronchitis or possible fluid overload. The patient is doing much better today and getting dialysis. I am called on consult for further evaluation and suggestions. PAST MEDICAL HISTORY: As per history of present illness plus atrial fibrillation, congestive heart failure, high cholesterol, hypertension. ALLERGIES: NO KNOWN DRUG ALLERGIES. MEDICATIONS: List of medications includes albuterol, azithromycin, ceftriaxone, Colace, Pepcid, glipizide, NovoLog, levothyroxine, metoprolol, pantoprazole, and promethazine with codeine. SOCIAL HISTORY: Denies smoking or ethanol abuse at present time. REVIEW OF SYSTEMS: Feeling much better today. Cough is decreased. Shortness of breath is decreased. No chest pain or palpitation. No fever or chills. No cough or sputum. No nausea, vomiting, melena, hemoptysis or hematemesis. No dysuria or hematuria. The patient is on dialysis. LABORATORY DATA: WBC 22,400, neutrophils 20,000, hemoglobin 12.4, hematocrit 38.4, platelet count 133,000. IMPRESSION: 1. Lichen multiple myeloma. 2. Anemia secondary to the end-stage renal disease. 3. Leukocytosis and neutrophilia secondary to recent bronchitis. PLAN: Clinical status discussed briefly with the patient. We will hold the treatment for now. When the patient is discharged, we will follow up the patient in the office. The patient has understood all those things and agreed with that. I discussed with Dr. Winkler. Thank you for letting me participate in the care of this patient and I will follow up the patient with you. Iggy Martinez MD cc: ____Jesus Winkler.
[2017-06-07] MEDS: Albuterol-Ipratrop 3 mg / 0.5 (3 ml) UD INH SCH ×4 (01:37→20:30)
[2017-06-07] MEDS: Levothyroxine 75 MCG TAB PO SCH (06:18)
[2017-06-07] MEDS: (Novolog) Insulin Aspart, Recombinant 100 u/ml 10 ml vial SC SCH ×4 (08:00→21:39)
[2017-06-07 08:17] LABS: BASO # 0.1 K/uL (0.0-0.2); BASO % 0.5 % (0.0-2.0); EOS # 0.2 K/uL (0.0-0.7); EOS % 1.2 % (0.0-4.0); HEMOGLOBIN 11.3 g/dL (11.0-16.0); LYMPH # 1.2 K/uL (1.0-4.3); LYMPH % 8.1 % (20.0-40.0); MEAN CELL VOLUME 95.1 fL (81.0-99.0); MEAN CORPUSCULAR HEMOGLOBIN 30.9 pg (27.0-31.0); MEAN CORPUSCULAR HGB CONC 32.5 g/dL (33.0-37.0); MEAN PLATELET VOLUME 9.6 fL (7.2-11.7); MONO # 0.8 K/uL (0.0-0.8); MONO % 5.3 % (0.0-10.0); NEUT # 12.7 K/uL (1.8-7.0); NEUT % 84.9 % (50.0-75.0); PLATELET COUNT 182 K/uL (130-400); RBC 3.65 Mil/uL (3.80-5.20); RED CELL DISTRIBUTION WIDTH 16.7 % (11.5-14.5); WHITE BLOOD COUNT 14.9 K/uL (4.8-10.8)
[2017-06-07 08:33] LABS: ALB/GLOB RATIO 0.9 (1.0-2.1); ALBUMIN 3.2 g/dL (3.5-5.0); CALCIUM 8.7 mg/dl (8.6-10.4)
[2017-06-07 09:18] LABS: EOSINOPHIL 1 % (0-4); LYMPHOCYTE 9 % (20-40); MONOCYTE 5 % (0-10); NEUTROPHIL 85 % (50-75); TOTAL CELLS COUNTED 100
[2017-06-07 09:19] LABS: ANISOCYTOSIS SLIGHT; HYPOCHROMIC SLIGHT; PLATELET ESTIMATE NORMAL (NORMAL); POLYCHROMIC SLIGHT
[2017-06-07 09:20] LABS: OVALOCYTES SLIGHT
[2017-06-07] MEDS: Pantoprazole 40 mg EC Tab PO SCH (09:35)
[2017-06-07] MEDS: guaiFENesin-Codeine 100-10mg/5ml Syrup (10ml) UD PO PRN (09:40)
--- NOTE | 2017-06-07 09:54 | CP.PCM.PN ---
Subjective - Date & Time of Evaluation Date of Evaluation: 06/07/17 Time of Evaluation: 09:52 - Subjective Subjective: Still coughing, wheezing s/p dialysis 06/06- UF 2200ml offered repeat dialysis today- pt refused on IV ABs for presumed acute bronchitis Objective - Vital Signs/Intake and Output Vital Signs (last 24 hours): Temp Pulse Resp BP Pulse Ox 98.5 F 88 20 141/78 97 06/07/17 07:28 06/07/17 07:28 06/07/17 07:28 06/07/17 09:33 06/07/17 07:28 Intake and Output: 06/07/17 06/07/17 06:59 18:59 Intake Total 200 Balance 200 - Medications Medications: Current Medications Albuterol/Ipratropium (Duoneb 3 Mg/0.5 Mg (3 Ml) Ud) 3 ml INH RQ6 [facility] Last Admin: 06/07/17 08:15 Dose: 3 ml Calcium Acetate (Phoslo) 667 mg PO BID [facility] Last Admin: 06/07/17 09:35 Dose: 667 mg Docusate Sodium (Colace) 100 mg PO TID [facility] Last Admin: 06/07/17 09:31 Dose: 100 mg Famotidine (Pepcid) 20 mg PO DAILY [facility] Last Admin: 06/07/17 09:34 Dose: 20 mg Ferrous Sulfate (Feosol) 325 mg PO DAILY [facility] Last Admin: 06/07/17 09:33 Dose: 325 mg Glipizide (Glucotrol) 10 mg PO DAILY [facility] Last Admin: 06/07/17 09:33 Dose: 10 mg Guaifenesin/Codeine Phosphate (Guaifenesin/Codeine) 10 ml PO Q6H PRN PRN Reason: Cough and congestion Last Admin: 06/07/17 09:40 Dose: 10 ml Heparin Sodium (Porcine) (Heparin) 5,000 units SC Q8 [facility] Last Admin: 06/07/17 06:14 Dose: 5,000 units Ceftriaxone Sodium 1 gm/ (Sodium Chloride) 100 mls @ 100 mls/hr IVPB DAILY [facility] Last Admin: 06/07/17 09:41 Dose: 100 mls/hr Azithromycin 500 mg/ Sodium (Chloride) 250 mls @ 250 mls/hr IVPB DAILY [facility] Last Admin: 06/06/17 09:54 Dose: 250 mls/hr Insulin Aspart (Novolog) 0 unit SC ACHS [facility] PRN Reason: Protocol Last Admin: 06/07/17 08:00 Dose: Not Given Levothyroxine Sodium (Synthroid) 75 mcg PO DAILY@0630 [facility] Last Admin: 06/07/17 06:18 Dose: 75 mcg Metoprolol Tartrate (Lopressor) 25 mg PO BID [facility] Last Admin: 06/07/17 09:33 Dose: 25 mg Pantoprazole Sodium (Protonix Ec Tab) 40 mg PO DAILY [facility] Last Admin: 06/07/17 09:35 Dose: 40 mg Rosuvastatin Calcium (Crestor) 5 mg PO HS [facility] Last Admin: 06/06/17 21:25 Dose: 5 mg - Labs Labs: 06/07/17 08:02 06/07/17 08:02 PT 14.3 SECONDS (9.7-12.2) H 06/04/17 20:40 INR 1.3 06/04/17 20:40 APTT 30 SECONDS (21-34) 06/04/17 20:40 - Constitutional Appears: In Acute Distress, Chronically Ill - Head Exam Head Exam: ATRAUMATIC, NORMAL INSPECTION - Eye Exam Eye Exam: EOMI, Normal appearance - Neck Exam Neck Exam: Normal Inspection. absent: Tenderness - Respiratory Exam Respiratory Exam: Rhonchi, Wheezes, Respiratory Distress - Cardiovascular Exam Cardiovascular Exam: REGULAR RHYTHM, +S1 - GI/Abdominal Exam GI & Abdominal Exam: Soft. absent: Tenderness - Extremities Exam Extremities Exam: Normal Inspection. absent: Tenderness - Neurological Exam Neurological Exam: Alert, CN II-XII Intact - Skin Skin Exam: Dry, Warm Assessment and Plan (1) Acute bronchitis Status: Acute (2) CHF (congestive heart failure) Status: Acute (3) ESRD (end stage renal disease) Status: Acute (4) Multiple myeloma Status: Acute (5) Diabetes 1.5, managed as type 2 Status: Chronic (6) HTN (hypertension) Status: Chronic - Assessment and Plan (Free Text) Plan: IV ABs increase UF goal at dialysis
[2017-06-07] MEDS: MethylPREDNISolone 40 mg Vial IVP SCH ×3 (10:43→21:38)
[2017-06-07] MEDS: Azithromycin 500 MG in Sodium Chloride 0.9% 250 ML IVPB SCH (10:48)
--- NOTE | 2017-06-07 13:07 | CP.PCM.PN ---
Subjective - Date & Time of Evaluation Date of Evaluation: 06/07/17 Time of Evaluation: 13:05 - Subjective Subjective: PGY2 Progress note for Dr. Denise Penn This patient was seen and examined at bedside without attending physician; she offers no complaints today other than her non humidified oxygen irritating her nose; she states her SOB is much improved and she was seen walking around the room without issue off of her O2 by myself and staff; she denies fevers/chills, INGRAM, CP, SOB, abdominal pain, N/V/D, dysuria/freq/urg, or lower extremity pain/ swelling. Objective - Vital Signs/Intake and Output Vital Signs (last 24 hours): Temp Pulse Resp BP Pulse Ox 98.5 F 88 20 141/78 97 06/07/17 07:28 06/07/17 07:28 06/07/17 07:28 06/07/17 09:33 06/07/17 07:28 Intake and Output: 06/07/17 06/07/17 06:59 18:59 Intake Total 200 Balance 200 - Medications Medications: Current Medications Albuterol/Ipratropium (Duoneb 3 Mg/0.5 Mg (3 Ml) Ud) 3 ml INH RQ6 [facility] Last Admin: 06/07/17 08:15 Dose: 3 ml Calcium Acetate (Phoslo) 667 mg PO BID [facility] Last Admin: 06/07/17 09:35 Dose: 667 mg Docusate Sodium (Colace) 100 mg PO TID [facility] Last Admin: 06/07/17 09:31 Dose: 100 mg Famotidine (Pepcid) 20 mg PO DAILY [facility] Last Admin: 06/07/17 09:34 Dose: 20 mg Ferrous Sulfate (Feosol) 325 mg PO DAILY [facility] Last Admin: 06/07/17 09:33 Dose: 325 mg Glipizide (Glucotrol) 10 mg PO DAILY [facility] Last Admin: 06/07/17 09:33 Dose: 10 mg Guaifenesin/Codeine Phosphate (Guaifenesin/Codeine) 10 ml PO Q6H PRN PRN Reason: Cough and congestion Last Admin: 06/07/17 09:40 Dose: 10 ml Heparin Sodium (Porcine) (Heparin) 5,000 units SC Q8 [facility] Last Admin: 06/07/17 06:14 Dose: 5,000 units Ceftriaxone Sodium 1 gm/ (Sodium Chloride) 100 mls @ 100 mls/hr IVPB DAILY [facility] Last Admin: 06/07/17 09:41 Dose: 100 mls/hr Azithromycin 500 mg/ Sodium (Chloride) 250 mls @ 250 mls/hr IVPB DAILY [facility] Last Admin: 06/07/17 10:48 Dose: 250 mls/hr Insulin Aspart (Novolog) 0 unit SC ACHS [facility] PRN Reason: Protocol Last Admin: 06/07/17 11:48 Dose: 3 unit Levothyroxine Sodium (Synthroid) 75 mcg PO DAILY@0630 [facility] Last Admin: 06/07/17 06:18 Dose: 75 mcg Methylprednisolone (Solu-Medrol) 40 mg IVP Q8 [facility] Last Admin: 06/07/17 10:43 Dose: 40 mg Metoprolol Tartrate (Lopressor) 25 mg PO BID [facility] Last Admin: 06/07/17 09:33 Dose: 25 mg Pantoprazole Sodium (Protonix Ec Tab) 40 mg PO DAILY [facility] Last Admin: 06/07/17 09:35 Dose: 40 mg Rosuvastatin Calcium (Crestor) 5 mg PO HS [facility] Last Admin: 06/06/17 21:25 Dose: 5 mg - Labs Labs: 06/07/17 08:02 06/07/17 08:02 PT 14.3 SECONDS (9.7-12.2) H 06/04/17 20:40 INR 1.3 06/04/17 20:40 APTT 30 SECONDS (21-34) 06/04/17 20:40 - Constitutional Appears: Non-toxic - Head Exam Head Exam: ATRAUMATIC, NORMAL INSPECTION - Eye Exam Eye Exam: EOMI, Normal appearance, PERRL - ENT Exam ENT Exam: Mucous Membranes Moist - Neck Exam Neck Exam: Full ROM. absent: Lymphadenopathy - Respiratory Exam Respiratory Exam: Wheezes, NORMAL BREATHING PATTERN. absent: Clear to Ausculation Bilateral, Rales, Rhonchi - Cardiovascular Exam Cardiovascular Exam: REGULAR RHYTHM, +S1, +S2 - GI/Abdominal Exam GI & Abdominal Exam: Soft, Normal Bowel Sounds. absent: Tenderness - Extremities Exam Extremities Exam: Full ROM. absent: Calf Tenderness - Back Exam Back Exam: NORMAL INSPECTION. absent: CVA tenderness (L), CVA tenderness (R) - Neurological Exam Neurological Exam: Alert, Awake, Normal Gait - Psychiatric Exam Psychiatric exam: Normal Affect - Skin Skin Exam: Warm Assessment and Plan - Assessment and Plan (Free Text) Assessment: 82F admitted for Bronchitis vs PNA Bronchitis vs PNA -Ceftriaxone and Azithromycin Day 3 -Guanefisen/Codeine for cough -BCx negative to date -WBC downtrending -breathing tx PRN no fevers ESRD patient has permacath for access continue with current hemodialysis [place] DM2 Chronic -c/w home insulin and glipizide HTN -Toprol XL 25mg daily Hypothyroidism -c/w levothyroxine 75mcg daily Prophylaxis Protonix Hep SC Case discussed with Dr. Denise ePnn Disposition; likely d/c tomorrow home with PO abx inhaler repeat chest x-ray 6 weeks incentive spirometer recommend PFT testing as outpatient/Pulm
--- NOTE | 2017-06-07 16:07 | CP.PCM.PN ---
Subjective - Date & Time of Evaluation Date of Evaluation: 06/07/17 Time of Evaluation: 11:00 - Subjective Subjective: pt clinically same Objective - Vital Signs/Intake and Output Vital Signs (last 24 hours): Temp Pulse Resp BP Pulse Ox 98.5 F 85 20 117/69 95 06/07/17 07:28 06/07/17 15:52 06/07/17 07:28 06/07/17 15:52 06/07/17 15:52 Intake and Output: 06/07/17 06/07/17 06:59 18:59 Intake Total 200 1030 Balance 200 1030 - Medications Medications: Current Medications Albuterol/Ipratropium (Duoneb 3 Mg/0.5 Mg (3 Ml) Ud) 3 ml INH RQ6 [facility] Last Admin: 06/07/17 12:50 Dose: 3 ml Calcium Acetate (Phoslo) 667 mg PO BID [facility] Last Admin: 06/07/17 09:35 Dose: 667 mg Docusate Sodium (Colace) 100 mg PO TID [facility] Last Admin: 06/07/17 13:33 Dose: 100 mg Famotidine (Pepcid) 20 mg PO DAILY [facility] Last Admin: 06/07/17 09:34 Dose: 20 mg Ferrous Sulfate (Feosol) 325 mg PO DAILY [facility] Last Admin: 06/07/17 09:33 Dose: 325 mg Glipizide (Glucotrol) 10 mg PO DAILY [facility] Last Admin: 06/07/17 09:33 Dose: 10 mg Guaifenesin/Codeine Phosphate (Guaifenesin/Codeine) 10 ml PO Q6H PRN PRN Reason: Cough and congestion Last Admin: 06/07/17 09:40 Dose: 10 ml Heparin Sodium (Porcine) (Heparin) 5,000 units SC Q8 [facility] Last Admin: 06/07/17 13:34 Dose: 5,000 units Ceftriaxone Sodium 1 gm/ (Sodium Chloride) 100 mls @ 100 mls/hr IVPB DAILY [facility] Last Admin: 06/07/17 09:41 Dose: 100 mls/hr Azithromycin 500 mg/ Sodium (Chloride) 250 mls @ 250 mls/hr IVPB DAILY [facility] Last Admin: 06/07/17 10:48 Dose: 250 mls/hr Insulin Aspart (Novolog) 0 unit SC ACHS [facility] PRN Reason: Protocol Last Admin: 06/07/17 11:48 Dose: 3 unit Levothyroxine Sodium (Synthroid) 75 mcg PO DAILY@0630 [facility] Last Admin: 06/07/17 06:18 Dose: 75 mcg Methylprednisolone (Solu-Medrol) 40 mg IVP Q8 [facility] Last Admin: 06/07/17 13:38 Dose: 40 mg Metoprolol Tartrate (Lopressor) 25 mg PO BID [facility] Last Admin: 06/07/17 09:33 Dose: 25 mg Pantoprazole Sodium (Protonix Ec Tab) 40 mg PO DAILY [facility] Last Admin: 06/07/17 09:35 Dose: 40 mg Rosuvastatin Calcium (Crestor) 5 mg PO HS [facility] Last Admin: 06/06/17 21:25 Dose: 5 mg - Labs Labs: 06/07/17 08:02 06/07/17 08:02 PT 14.3 SECONDS (9.7-12.2) H 06/04/17 20:40 INR 1.3 06/04/17 20:40 APTT 30 SECONDS (21-34) 06/04/17 20:40 - Constitutional Appears: No Acute Distress - Head Exam Head Exam: ATRAUMATIC, NORMAL INSPECTION, NORMOCEPHALIC - Eye Exam Eye Exam: EOMI, Normal appearance, PERRL Pupil Exam: NORMAL ACCOMODATION, PERRL - ENT Exam ENT Exam: Mucous Membranes Moist - Neck Exam Neck Exam: Full ROM - Respiratory Exam Respiratory Exam: Decreased Breath Sounds - Cardiovascular Exam Cardiovascular Exam: REGULAR RHYTHM, +S1, +S2 - GI/Abdominal Exam GI & Abdominal Exam: Soft, Diminished Bowel Sounds - Rectal Exam Rectal Exam: Deferred - Neurological Exam Additional comments: [employer] same
--- NOTE | 2017-06-07 18:43 | CP.PCM.CON ---
History of Present Illness - History of Present Illness History of Present Illness: Patient is an 82 year old female who presented to the ED for shortness of breath and productive cough. Patient has a PMH of COPD, multiple myeloma for which she receives chemotherapy, diabetes, HTN, dyslipidemia, hypothyroidism, and renal failure for which she receives dialysis. Pulmonology was consulted for shortness of breath and cough. Patient was seen and examined in bed today. Patient states she does not feel well and complains of cough. CXR 06/04: Lines and tubes in stable position. Diffuse increased interstitial lung markings. Right hilar prominence. Patchy consolidative changes at both lung bases with blunted bilateral costophrenic angles. Additional consolidative change at the medial left lower lung zone. Calcification at the aortic knob. Review of Systems - Review of Systems All systems: reviewed and no additional remarkable complaints except (shortness of breath and cough) Past Patient History - Infectious Disease Hx of Infectious Diseases: None - Past Medical History & Family History Past Medical History?: Yes - Past Social History Smoking Status: Former Smoker Chewing Tobacco Use: No Cigar Use: No Alcohol: None Drugs: Denies Home Situation {Lives}: With Family - CARDIAC Hx Congestive Heart Failure: Yes Hx Hypercholesterolemia: Yes Hx Hypertension: Yes - NEUROLOGICAL Hx Neurological Disorder: No - HEENT Hx HEENT Problems: Yes Hx Cataracts: Yes (bilateral) - RENAL Hx Chronic Kidney Disease: Yes - ENDOCRINE/METABOLIC Hx Hypothyroidism: Yes - HEMATOLOGICAL/ONCOLOGICAL Hx Anemia: Yes - INTEGUMENTARY Hx Dermatological Problems: No - MUSCULOSKELETAL/RHEUMATOLOGICAL Hx Arthritis: Yes - GASTROINTESTINAL Hx Gastrointestinal Disorders: Yes Hx Hemorrhoids: Yes - GENITOURINARY/GYNECOLOGICAL Hx Genitourinary Disorders: No - PSYCHIATRIC Hx Substance Use: No - SURGICAL HISTORY Hx Surgeries: Yes Hx Arteriovenous Shunt: Yes (LEFT ARM AV ,permacath) Hx Vascular Access Device: Yes (perma cath elaina cath) - ANESTHESIA Hx Anesthesia: Yes Hx Anesthesia Reactions: No Hx Malignant Hyperthermia: No Meds Allergies/Adverse Reactions: Allergies Allergy/AdvReac Type Severity Reaction Status Date / Time No Known Allergies Allergy Verified 06/04/17 19:45 - Medications Medications: Current Medications Albuterol/Ipratropium (Duoneb 3 Mg/0.5 Mg (3 Ml) Ud) 3 ml INH RQ6 [facility] Last Admin: 06/07/17 12:50 Dose: 3 ml Calcium Acetate (Phoslo) 667 mg PO BID [facility] Last Admin: 06/07/17 17:17 Dose: 667 mg Docusate Sodium (Colace) 100 mg PO TID [facility] Last Admin: 06/07/17 17:17 Dose: 100 mg Famotidine (Pepcid) 20 mg PO DAILY [facility] Last Admin: 06/07/17 09:34 Dose: 20 mg Ferrous Sulfate (Feosol) 325 mg PO DAILY [facility] Last Admin: 06/07/17 09:33 Dose: 325 mg Glipizide (Glucotrol) 10 mg PO DAILY [facility] Last Admin: 06/07/17 09:33 Dose: 10 mg Guaifenesin/Codeine Phosphate (Guaifenesin/Codeine) 10 ml PO Q6H PRN PRN Reason: Cough and congestion Last Admin: 06/07/17 09:40 Dose: 10 ml Heparin Sodium (Porcine) (Heparin) 5,000 units SC Q8 [facility] Last Admin: 06/07/17 13:34 Dose: 5,000 units Ceftriaxone Sodium 1 gm/ (Sodium Chloride) 100 mls @ 100 mls/hr IVPB DAILY [facility] Last Admin: 06/07/17 09:41 Dose: 100 mls/hr Azithromycin 500 mg/ Sodium (Chloride) 250 mls @ 250 mls/hr IVPB DAILY [facility] Last Admin: 06/07/17 10:48 Dose: 250 mls/hr Insulin Aspart (Novolog) 0 unit SC ACHS [facility] PRN Reason: Protocol Last Admin: 06/07/17 17:26 Dose: 4 unit Levothyroxine Sodium (Synthroid) 75 mcg PO DAILY@0630 [facility] Last Admin: 06/07/17 06:18 Dose: 75 mcg Methylprednisolone (Solu-Medrol) 40 mg IVP Q8 [facility] Last Admin: 06/07/17 13:38 Dose: 40 mg Metoprolol Tartrate (Lopressor) 25 mg PO BID [facility] Last Admin: 06/07/17 17:18 Dose: 25 mg Pantoprazole Sodium (Protonix Ec Tab) 40 mg PO DAILY [facility] Last Admin: 06/07/17 09:35 Dose: 40 mg Rosuvastatin Calcium (Crestor) 5 mg PO HS [facility] Last Admin: 06/06/17 21:25 Dose: 5 mg Physical Exam - Head Exam Head Exam: ATRAUMATIC, NORMOCEPHALIC - Eye Exam Eye Exam: Normal appearance - ENT Exam ENT Exam: Mucous Membranes Moist - Neck Exam Neck exam: Positive for: Normal Inspection - Respiratory Exam Respiratory Exam: Rales, Rhonchi - Cardiovascular Exam Cardiovascular Exam: REGULAR RHYTHM - GI/Abdominal Exam GI & Abdominal Exam: Normal Bowel Sounds, Soft Results - Vital Signs Recent Vital Signs: Last Vital Signs Temp 98.9 F 06/07/17 16:00 Pulse 99 H 06/07/17 16:00 Resp 20 06/07/17 16:00 BP 117/69 06/07/17 17:18 Pulse Ox 95 06/07/17 16:00 - Labs Result Diagrams: 06/07/17 08:02 06/07/17 08:02 Labs: Laboratory Results - last 24 hr 06/06/17 06/07/17 06/07/17 21:30 01:36 07:27 WBC RBC Hgb Hct MCV MCH MCHC RDW Plt Count MPV Neut % (Auto) Lymph % (Auto) [place] % (Auto) Eos % (Auto) Baso % (Auto) Neut # (Auto) Lymph # (Auto) [place] # (Auto) Eos # (Auto) Baso # (Auto) Neutrophils % (Manual) Lymphocytes % (Manual) Monocytes % (Manual) Eosinophils % (Manual) Platelet Estimate Polychromasia Hypochromasia (manual) Anisocytosis (manual) Ovalocytes Sodium Potassium Chloride Carbon Dioxide Anion Gap BUN Creatinine Est GFR ( Amer) Est GFR (Non-Af Amer) POC Glucose (mg/dL) 227 H 177 H 150 H Random Glucose Calcium Total Bilirubin AST ALT Alkaline Phosphatase Total Protein Albumin Globulin Albumin/Globulin Ratio 06/07/17 06/07/17 06/07/17 08:02 08:02 11:21 WBC 14.9 H RBC 3.65 L Hgb 11.3 Hct 34.8 MCV 95.1 MCH 30.9 MCHC 32.5 L RDW 16.7 H Plt Count 182 MPV 9.6 Neut % (Auto) 84.9 H Lymph % (Auto) 8.1 L [place] % (Auto) 5.3 Eos % (Auto) 1.2 Baso % (Auto) 0.5 Neut # (Auto) 12.7 H Lymph # (Auto) 1.2 [place] # (Auto) 0.8 Eos # (Auto) 0.2 Baso # (Auto) 0.1 Neutrophils % (Manual) 85 H Lymphocytes % (Manual) 9 L Monocytes % (Manual) 5 Eosinophils % (Manual) 1 Platelet Estimate Normal Polychromasia Slight Hypochromasia (manual) Slight Anisocytosis (manual) Slight Ovalocytes Slight Sodium 140 Potassium 4.7 Chloride 98 Carbon Dioxide 34 H Anion Gap 13 BUN 25 H Creatinine 2.9 H Est GFR ( Amer) 19 Est GFR (Non-Af Amer) 16 POC Glucose (mg/dL) 258 H Random Glucose 129 H Calcium 8.7 Total Bilirubin 0.3 AST 29 ALT 31 Alkaline Phosphatase 76 Total Protein 6.7 Albumin 3.2 L Globulin 3.4 Albumin/Globulin Ratio 0.9 L 06/07/17 06/07/17 14:45 16:40 WBC RBC Hgb Hct MCV MCH MCHC RDW Plt Count MPV Neut % (Auto) Lymph % (Auto) [place] % (Auto) Eos % (Auto) Baso % (Auto) Neut # (Auto) Lymph # (Auto) [place] # (Auto) Eos # (Auto) Baso # (Auto) Neutrophils % (Manual) Lymphocytes % (Manual) Monocytes % (Manual) Eosinophils % (Manual) Platelet Estimate Polychromasia Hypochromasia (manual) Anisocytosis (manual) Ovalocytes Sodium Potassium Chloride Carbon Dioxide Anion Gap BUN Creatinine Est GFR ( Amer) Est GFR (Non-Af Amer) POC Glucose (mg/dL) 204 H 326 H Random Glucose Calcium Total Bilirubin AST ALT Alkaline Phosphatase Total Protein Albumin Globulin Albumin/Globulin Ratio Assessment & Plan (1) Acute bronchitis Status: Acute Comment: chest x-ray consistent with by basilar infiltrate. Continue IV antibiotics. Continue nebulizer treatment and IV STEROIDS. Hemodialysis. Followup chest x-ray and ABG. Followup culture and sensitivity (2) ESRD (end stage renal disease) Status: Acute (3) Multiple myeloma Status: Acute (4) COPD (chronic obstructive pulmonary disease) Status: Acute (5) Pulmonary hypertension Status: Acute
[2017-06-08] MEDS: Albuterol-Ipratrop 3 mg / 0.5 (3 ml) UD INH SCH ×4 (03:01→19:10)
[2017-06-08] MEDS: guaiFENesin-Codeine 100-10mg/5ml Syrup (10ml) UD PO PRN ×2 (05:38→17:39)
[2017-06-08] MEDS: MethylPREDNISolone 40 mg Vial IVP SCH ×3 (05:40→21:21)
[2017-06-08] MEDS: Levothyroxine 75 MCG TAB PO SCH (06:42)
[2017-06-08] MEDS: (Novolog) Insulin Aspart, Recombinant 100 u/ml 10 ml vial SC SCH ×4 (08:43→22:58)
[2017-06-08] MEDS: Pantoprazole 40 mg EC Tab PO SCH (09:17)
--- NOTE | 2017-06-08 09:50 | CP.PCM.PN ---
Subjective - Date & Time of Evaluation Date of Evaluation: 06/08/17 Time of Evaluation: 07:00 - Subjective Subjective: the patient seen and examined Sitting on chair in mild respiratory distress Awake and responsive Afebrile No chest pain Objective - Vital Signs/Intake and Output Vital Signs (last 24 hours): Temp Pulse Resp BP Pulse Ox 98.2 F 80 22 120/47 L 96 06/08/17 08:00 06/08/17 08:00 06/08/17 08:00 06/08/17 08:00 06/08/17 08:00 Intake and Output: 06/08/17 06/08/17 06:59 18:59 Intake Total 400 Balance 400 - Medications Medications: Current Medications Albuterol/Ipratropium (Duoneb 3 Mg/0.5 Mg (3 Ml) Ud) 3 ml INH RQ6 [facility] Last Admin: 06/08/17 08:13 Dose: 3 ml Calcium Acetate (Phoslo) 667 mg PO BIDCC [facility] Last Admin: 06/08/17 08:43 Dose: 667 mg Docusate Sodium (Colace) 100 mg PO TID [facility] Last Admin: 06/08/17 09:17 Dose: 100 mg Famotidine (Pepcid) 20 mg PO DAILY [facility] Last Admin: 06/08/17 09:18 Dose: 20 mg Ferrous Sulfate (Feosol) 325 mg PO DAILY [facility] Last Admin: 06/08/17 09:17 Dose: 325 mg Glipizide (Glucotrol) 10 mg PO DAILY [facility] Last Admin: 06/08/17 09:17 Dose: 10 mg Guaifenesin/Codeine Phosphate (Guaifenesin/Codeine) 10 ml PO Q6H PRN PRN Reason: Cough and congestion Last Admin: 06/08/17 05:38 Dose: 10 ml Ceftriaxone Sodium 1 gm/ (Sodium Chloride) 100 mls @ 100 mls/hr IVPB DAILY [facility] Last Admin: 06/07/17 09:41 Dose: 100 mls/hr Azithromycin 500 mg/ Sodium (Chloride) 250 mls @ 250 mls/hr IVPB DAILY [facility] Last Admin: 06/07/17 10:48 Dose: 250 mls/hr Insulin Aspart (Novolog) 0 unit SC ACHS [facility] PRN Reason: Protocol Last Admin: 06/08/17 08:43 Dose: 3 unit Levothyroxine Sodium (Synthroid) 75 mcg PO DAILY@0630 [facility] Last Admin: 06/08/17 06:42 Dose: 75 mcg Methylprednisolone (Solu-Medrol) 40 mg IVP Q8 [facility] Last Admin: 06/08/17 05:40 Dose: 40 mg Metoprolol Tartrate (Lopressor) 25 mg PO BID [facility] Last Admin: 06/07/17 17:18 Dose: 25 mg Pantoprazole Sodium (Protonix Ec Tab) 40 mg PO DAILY [facility] Last Admin: 06/08/17 09:17 Dose: 40 mg Rosuvastatin Calcium (Crestor) 5 mg PO HS [facility] Last Admin: 06/07/17 21:38 Dose: 5 mg - Labs Labs: 06/07/17 08:02 06/07/17 08:02 PT 14.3 SECONDS (9.7-12.2) H 06/04/17 20:40 INR 1.3 06/04/17 20:40 APTT 30 SECONDS (21-34) 06/04/17 20:40 - Head Exam Head Exam: ATRAUMATIC, NORMOCEPHALIC - Eye Exam Eye Exam: Normal appearance - ENT Exam ENT Exam: Mucous Membranes Moist - Neck Exam Neck Exam: Normal Inspection - Respiratory Exam Respiratory Exam: Rales - Cardiovascular Exam Cardiovascular Exam: Irregular Rhythm - GI/Abdominal Exam GI & Abdominal Exam: Soft, Normal Bowel Sounds Assessment and Plan (1) Acute bronchitis Assessment & Plan: Patient being treated for pneumonia Continue IV antibiotics Continue steroids and nebulizer treatment Followup culture and sensitivity Will repeat chest x-ray tomorrow Status: Acute (2) ESRD (end stage renal disease) Status: Acute (3) Multiple myeloma Status: Acute (4) COPD (chronic obstructive pulmonary disease) Status: Acute (5) Pulmonary hypertension Status: Acute
--- NOTE | 2017-06-08 10:23 | CP.PCM.PN ---
Subjective - Date & Time of Evaluation Date of Evaluation: 06/08/17 Time of Evaluation: 07:35 - Subjective Subjective: PGY2 Progress note for Dr. Denise Penn This patient was seen and examined at bedside. Continues to be mildly SOB, however she continues to improve. She is on Oxygen via NC. Tolerating diet and passing normal BM's. Denies fevers/chills, INGRAM, CP, abdominal pain, N/V/D, dysuria/freq/urg, lower extremity pain/swelling, or any additional acute complaints. Objective - Vital Signs/Intake and Output Vital Signs (last 24 hours): Temp Pulse Resp BP Pulse Ox 98.2 F 80 22 120/47 L 96 06/08/17 08:00 06/08/17 08:00 06/08/17 08:00 06/08/17 08:00 06/08/17 08:00 Intake and Output: 06/08/17 06/08/17 06:59 18:59 Intake Total 400 Balance 400 - Medications Medications: Current Medications Albuterol/Ipratropium (Duoneb 3 Mg/0.5 Mg (3 Ml) Ud) 3 ml INH RQ6 [facility] Last Admin: 06/08/17 08:13 Dose: 3 ml Calcium Acetate (Phoslo) 667 mg PO BIDCC [facility] Last Admin: 06/08/17 08:43 Dose: 667 mg Docusate Sodium (Colace) 100 mg PO TID [facility] Last Admin: 06/08/17 09:17 Dose: 100 mg Famotidine (Pepcid) 20 mg PO DAILY [facility] Last Admin: 06/08/17 09:18 Dose: 20 mg Ferrous Sulfate (Feosol) 325 mg PO DAILY [facility] Last Admin: 06/08/17 09:17 Dose: 325 mg Glipizide (Glucotrol) 10 mg PO DAILY [facility] Last Admin: 06/08/17 09:17 Dose: 10 mg Guaifenesin/Codeine Phosphate (Guaifenesin/Codeine) 10 ml PO Q6H PRN PRN Reason: Cough and congestion Last Admin: 06/08/17 05:38 Dose: 10 ml Ceftriaxone Sodium 1 gm/ (Sodium Chloride) 100 mls @ 100 mls/hr IVPB DAILY [facility] Last Admin: 06/07/17 09:41 Dose: 100 mls/hr Azithromycin 500 mg/ Sodium (Chloride) 250 mls @ 250 mls/hr IVPB DAILY [facility] Last Admin: 06/07/17 10:48 Dose: 250 mls/hr Insulin Aspart (Novolog) 0 unit SC ACHS [facility] PRN Reason: Protocol Last Admin: 06/08/17 08:43 Dose: 3 unit Levothyroxine Sodium (Synthroid) 75 mcg PO DAILY@0630 [facility] Last Admin: 06/08/17 06:42 Dose: 75 mcg Methylprednisolone (Solu-Medrol) 40 mg IVP Q8 [facility] Last Admin: 06/08/17 05:40 Dose: 40 mg Metoprolol Tartrate (Lopressor) 25 mg PO BID [facility] Last Admin: 06/07/17 17:18 Dose: 25 mg Pantoprazole Sodium (Protonix Ec Tab) 40 mg PO DAILY [facility] Last Admin: 06/08/17 09:17 Dose: 40 mg Rosuvastatin Calcium (Crestor) 5 mg PO HS [facility] Last Admin: 06/07/17 21:38 Dose: 5 mg - Labs Labs: 06/07/17 08:02 06/07/17 08:02 PT 14.3 SECONDS (9.7-12.2) H 06/04/17 20:40 INR 1.3 06/04/17 20:40 APTT 30 SECONDS (21-34) 06/04/17 20:40 - Additional Findings Additional findings: - Constitutional Appears: Non-toxic - Head Exam Head Exam: ATRAUMATIC, NORMAL INSPECTION - Eye Exam Eye Exam: EOMI, Normal appearance, PERRL - ENT Exam ENT Exam: Mucous Membranes Moist - Neck Exam Neck Exam: Full ROM. absent: Lymphadenopathy - Respiratory Exam Respiratory Exam: Wheezes, NORMAL BREATHING PATTERN. absent: Clear to Ausculation Bilateral, Rales, Rhonchi - Cardiovascular Exam Cardiovascular Exam: REGULAR RHYTHM, +S1, +S2 - GI/Abdominal Exam GI & Abdominal Exam: Soft, Normal Bowel Sounds. absent: Tenderness - Extremities Exam Extremities Exam: Full ROM. absent: Calf Tenderness - Back Exam Back Exam: NORMAL INSPECTION. absent: CVA tenderness (L), CVA tenderness (R) - Neurological Exam Neurological Exam: Alert, Awake, Normal Gait - Psychiatric Exam Psychiatric exam: Normal Affect - Skin Skin Exam: Warm Assessment and Plan - Assessment and Plan (Free Text) Assessment: 82F admitted for Bronchitis vs PNA Bronchitis vs PNA 06/08: WBC 14.9, downtrending; monitor. Afebrile. -Ceftriaxone and Azithromycin Day 3 -Guanefisen/Codeine for cough -BCx negative to date -WBC downtrending -breathing tx PRN no fevers ESRD 06/08: Received dialysis today. patient has permacath for access continue with current hemodialysis formerly [facility] Nephrology consult, Dr. Bill, f/u recs DM2 Chronic -c/w home insulin and glipizide HTN -Toprol XL 25mg daily Hypothyroidism -c/w levothyroxine 75mcg daily Prophylaxis Protonix Hep SC Case discussed with Dr. Denise Penn Disposition; likely d/c with PO abx in 1-2 days. D/C with inhaler, repeat chest x-ray 6 weeks, incentive spirometer, and recommend PFT testing as outpatien with Pulm.
--- NOTE | 2017-06-08 13:32 | CP.PCM.PN ---
Subjective - Date & Time of Evaluation Date of Evaluation: 06/08/17 Time of Evaluation: 13:30 - Subjective Subjective: Seen at dialysis still c/o dry cough, moderate dyspnea seen by pulmonary- on IV ABs and IV steroids no n, v, diarrhea, fevers, chills Objective - Vital Signs/Intake and Output Vital Signs (last 24 hours): Temp Pulse Resp BP Pulse Ox 97.9 F 77 16 133/69 95 06/08/17 09:50 06/08/17 11:15 06/08/17 11:15 06/08/17 11:15 06/08/17 11:15 Intake and Output: 06/08/17 06/08/17 06:59 18:59 Intake Total 400 Balance 400 - Medications Medications: Current Medications Albuterol/Ipratropium (Duoneb 3 Mg/0.5 Mg (3 Ml) Ud) 3 ml INH RQ6 [facility] Last Admin: 06/08/17 08:13 Dose: 3 ml Calcium Acetate (Phoslo) 667 mg PO BIDCC [facility] Last Admin: 06/08/17 08:43 Dose: 667 mg Docusate Sodium (Colace) 100 mg PO TID [facility] Last Admin: 06/08/17 09:17 Dose: 100 mg Famotidine (Pepcid) 20 mg PO DAILY [facility] Last Admin: 06/08/17 09:18 Dose: 20 mg Ferrous Sulfate (Feosol) 325 mg PO DAILY [facility] Last Admin: 06/08/17 09:17 Dose: 325 mg Glipizide (Glucotrol) 10 mg PO DAILY [facility] Last Admin: 06/08/17 09:17 Dose: 10 mg Guaifenesin/Codeine Phosphate (Guaifenesin/Codeine) 10 ml PO Q6H PRN PRN Reason: Cough and congestion Last Admin: 06/08/17 05:38 Dose: 10 ml Ceftriaxone Sodium 1 gm/ (Sodium Chloride) 100 mls @ 100 mls/hr IVPB DAILY [facility] Last Admin: 06/07/17 09:41 Dose: 100 mls/hr Azithromycin 500 mg/ Sodium (Chloride) 250 mls @ 250 mls/hr IVPB DAILY [facility] Last Admin: 06/07/17 10:48 Dose: 250 mls/hr Insulin Aspart (Novolog) 0 unit SC ACHS [facility] PRN Reason: Protocol Last Admin: 06/08/17 08:43 Dose: 3 unit Levothyroxine Sodium (Synthroid) 75 mcg PO DAILY@0630 [facility] Last Admin: 06/08/17 06:42 Dose: 75 mcg Methylprednisolone (Solu-Medrol) 40 mg IVP Q8 [facility] Last Admin: 06/08/17 05:40 Dose: 40 mg Metoprolol Tartrate (Lopressor) 25 mg PO BID [facility] Last Admin: 06/07/17 17:18 Dose: 25 mg Pantoprazole Sodium (Protonix Ec Tab) 40 mg PO DAILY [facility] Last Admin: 06/08/17 09:17 Dose: 40 mg Rosuvastatin Calcium (Crestor) 5 mg PO HS [facility] Last Admin: 06/07/17 21:38 Dose: 5 mg - Labs Labs: 06/07/17 08:02 06/07/17 08:02 PT 14.3 SECONDS (9.7-12.2) H 06/04/17 20:40 INR 1.3 06/04/17 20:40 APTT 30 SECONDS (21-34) 06/04/17 20:40 - Constitutional Appears: In Acute Distress, Chronically Ill - Head Exam Head Exam: ATRAUMATIC, NORMAL INSPECTION - Eye Exam Eye Exam: EOMI, Normal appearance - Neck Exam Neck Exam: Normal Inspection. absent: Tenderness - Respiratory Exam Respiratory Exam: Rhonchi, Wheezes - Cardiovascular Exam Cardiovascular Exam: REGULAR RHYTHM, +S1 - GI/Abdominal Exam GI & Abdominal Exam: Soft. absent: Tenderness - Extremities Exam Extremities Exam: Normal Inspection. absent: Tenderness - Neurological Exam Neurological Exam: Alert, CN II-XII Intact - Skin Skin Exam: Dry, Warm Assessment and Plan (1) Acute bronchitis Status: Acute (2) CHF (congestive heart failure) Status: Acute (3) ESRD (end stage renal disease) Status: Acute (4) Multiple myeloma Status: Acute (5) Diabetes 1.5, managed as type 2 Status: Chronic (6) HTN (hypertension) Status: Chronic - Assessment and Plan (Free Text) Plan: IV ABs Steroids Increase UF with HD repeat CXR
--- NOTE | 2017-06-08 14:47 | RAD ---
HISTORY: chf/pneumonia COMPARISON: Comparison is made with 06/04/2017 TECHNIQUE: Chest PA and lateral FINDINGS: LUNGS: No evidence of new infiltrate or consolidation in the lungs. Again seen is focal reticular opacity at the left lung lower lobe/ retrocardiac region. PLEURA: No significant pleural effusion identified. No pneumothorax apparent. CARDIOVASCULAR: Normal. OSSEOUS STRUCTURES: Suspicious for diffuse osteopenia. VISUALIZED UPPER ABDOMEN: Normal. OTHER FINDINGS: Left-sided Infusaport is seen in place. Right-sided double lumen hemodialysis catheter is also seen in place. IMPRESSION: No evidence of a new infiltrate or consolidation in the lungs.
[2017-06-08] MEDS: Azithromycin 500 MG in Sodium Chloride 0.9% 250 ML IVPB SCH (14:53)
[2017-06-08 17:03] LABS: MEAN CELL VOLUME 93.2 fL (81.0-99.0); MEAN CORPUSCULAR HEMOGLOBIN 30.2 pg (27.0-31.0); MEAN CORPUSCULAR HGB CONC 32.4 g/dL (33.0-37.0); MEAN PLATELET VOLUME 9.2 fL (7.2-11.7); RBC 3.96 Mil/uL (3.80-5.20); RED CELL DISTRIBUTION WIDTH 16.8 % (11.5-14.5)
[2017-06-08 17:12] LABS: WHITE BLOOD COUNT 24.4 K/uL (4.8-10.8)
[2017-06-08 17:20] LABS: CALCIUM 9.1 mg/dl (8.6-10.4)
--- NOTE | 2017-06-08 18:36 | CP.PCM.PN ---
Subjective - Date & Time of Evaluation Date of Evaluation: 06/08/17 Time of Evaluation: 09:00 - Subjective Subjective: clinically same Objective - Vital Signs/Intake and Output Vital Signs (last 24 hours): Temp Pulse Resp BP Pulse Ox 98.0 F 99 H 20 131/72 95 06/08/17 15:00 06/08/17 15:00 06/08/17 15:00 06/08/17 17:37 06/08/17 15:00 Intake and Output: 06/08/17 06/08/17 06:59 18:59 Intake Total 400 Balance 400 - Medications Medications: Current Medications Albuterol/Ipratropium (Duoneb 3 Mg/0.5 Mg (3 Ml) Ud) 3 ml INH RQ6 [facility] Last Admin: 06/08/17 13:51 Dose: 3 ml Calcium Acetate (Phoslo) 667 mg PO BIDCC [facility] Last Admin: 06/08/17 17:37 Dose: 667 mg Docusate Sodium (Colace) 100 mg PO TID [facility] Last Admin: 06/08/17 17:37 Dose: 100 mg Famotidine (Pepcid) 20 mg PO DAILY [facility] Last Admin: 06/08/17 09:18 Dose: 20 mg Ferrous Sulfate (Feosol) 325 mg PO DAILY [facility] Last Admin: 06/08/17 09:17 Dose: 325 mg Glipizide (Glucotrol) 10 mg PO DAILY [facility] Last Admin: 06/08/17 09:17 Dose: 10 mg Guaifenesin/Codeine Phosphate (Guaifenesin/Codeine) 10 ml PO Q6H PRN PRN Reason: Cough and congestion Last Admin: 06/08/17 17:39 Dose: 10 ml Ceftriaxone Sodium 1 gm/ (Sodium Chloride) 100 mls @ 100 mls/hr IVPB DAILY [facility] Last Admin: 06/08/17 14:37 Dose: 100 mls/hr Azithromycin 500 mg/ Sodium (Chloride) 250 mls @ 250 mls/hr IVPB DAILY [facility] Last Admin: 06/08/17 14:53 Dose: 250 mls/hr Insulin Aspart (Novolog) 0 unit SC ACHS [facility] PRN Reason: Protocol Last Admin: 06/08/17 17:38 Dose: 2 unit Levothyroxine Sodium (Synthroid) 75 mcg PO DAILY@0630 [facility] Last Admin: 06/08/17 06:42 Dose: 75 mcg Methylprednisolone (Solu-Medrol) 40 mg IVP Q8 [facility] Last Admin: 06/08/17 14:28 Dose: 40 mg Metoprolol Tartrate (Lopressor) 25 mg PO BID [facility] Last Admin: 06/08/17 17:37 Dose: 25 mg Pantoprazole Sodium (Protonix Ec Tab) 40 mg PO DAILY [facility] Last Admin: 06/08/17 09:17 Dose: 40 mg Rosuvastatin Calcium (Crestor) 5 mg PO HS [facility] Last Admin: 06/07/17 21:38 Dose: 5 mg - Labs Labs: 06/08/17 16:54 06/08/17 16:54 PT 14.3 SECONDS (9.7-12.2) H 06/04/17 20:40 INR 1.3 06/04/17 20:40 APTT 30 SECONDS (21-34) 06/04/17 20:40 - Constitutional Appears: Well - Head Exam Head Exam: ATRAUMATIC, NORMAL INSPECTION, NORMOCEPHALIC - Eye Exam Eye Exam: EOMI, Normal appearance, PERRL Pupil Exam: NORMAL ACCOMODATION, PERRL - ENT Exam ENT Exam: Mucous Membranes Moist, Normal Exam - Neck Exam Neck Exam: Full ROM, Normal Inspection. absent: Lymphadenopathy - Respiratory Exam Respiratory Exam: Decreased Breath Sounds - Cardiovascular Exam Cardiovascular Exam: REGULAR RHYTHM, +S1, +S2 - GI/Abdominal Exam GI & Abdominal Exam: Soft, Diminished Bowel Sounds - Rectal Exam Rectal Exam: Deferred
[2017-06-09] MEDS: Albuterol-Ipratrop 3 mg / 0.5 (3 ml) UD INH SCH ×4 (02:58→21:01)
[2017-06-09] MEDS: MethylPREDNISolone 40 mg Vial IVP SCH ×3 (05:18→21:49)
[2017-06-09] MEDS: Levothyroxine 75 MCG TAB PO SCH (05:29)
[2017-06-09 06:21] LABS: BASO % 0.1 % (0.0-2.0); HEMOGLOBIN 12.1 g/dL (11.0-16.0); LYMPH # 0.8 K/uL (1.0-4.3); LYMPH % 3.5 % (20.0-40.0); MEAN CELL VOLUME 94.5 fL (81.0-99.0); MEAN CORPUSCULAR HEMOGLOBIN 30.2 pg (27.0-31.0); MEAN PLATELET VOLUME 9.5 fL (7.2-11.7); MONO # 0.5 K/uL (0.0-0.8); MONO % 2.1 % (0.0-10.0); NEUT # 22.4 K/uL (1.8-7.0); NEUT % 94.3 % (50.0-75.0); PLATELET COUNT 205 K/uL (130-400); RBC 4.01 Mil/uL (3.80-5.20); RED CELL DISTRIBUTION WIDTH 17.2 % (11.5-14.5); WHITE BLOOD COUNT 23.8 K/uL (4.8-10.8)
[2017-06-09 06:46] LABS: ALBUMIN 3.5 g/dL (3.5-5.0); CALCIUM 8.8 mg/dl (8.6-10.4); MAGNESIUM 2.3 mg/dL (1.6-2.3)
[2017-06-09] MEDS: (Novolog) Insulin Aspart, Recombinant 100 u/ml 10 ml vial SC SCH ×4 (08:00→22:08)
[2017-06-09] MEDS: Pantoprazole 40 mg EC Tab PO SCH (09:21)
[2017-06-09] MEDS: Azithromycin 500 MG in Sodium Chloride 0.9% 250 ML IVPB SCH (09:21)
--- NOTE | 2017-06-09 09:49 | CP.PCM.PN ---
Subjective - Date & Time of Evaluation Date of Evaluation: 06/09/17 Time of Evaluation: 09:44 - Subjective Subjective: output not recorded afebrile bp low and stable bun 54,creatinin 3.4,lytes ok calcium 8.8.alb 3.5 cough persists no hemoptysis ROS no chills fever no chest pain if not coughing no abd pain n/v/d no dysuria Objective - Vital Signs/Intake and Output Vital Signs (last 24 hours): Temp Pulse Resp BP Pulse Ox 98.6 F 96 H 20 112/58 L 95 06/09/17 09:12 06/09/17 09:12 06/09/17 09:12 06/09/17 09:16 06/09/17 09:12 Intake and Output: 06/09/17 06/09/17 06:59 18:59 Intake Total 260 Balance 260 - Medications Medications: Current Medications Albuterol/Ipratropium (Duoneb 3 Mg/0.5 Mg (3 Ml) Ud) 3 ml INH RQ6 [facility] Last Admin: 06/09/17 07:59 Dose: 3 ml Calcium Acetate (Phoslo) 667 mg PO BIDCC [facility] Last Admin: 06/09/17 08:25 Dose: 667 mg Docusate Sodium (Colace) 100 mg PO TID [facility] Last Admin: 06/09/17 09:16 Dose: 100 mg Famotidine (Pepcid) 20 mg PO DAILY [facility] Last Admin: 06/09/17 09:21 Dose: 20 mg Ferrous Sulfate (Feosol) 325 mg PO DAILY [facility] Last Admin: 06/09/17 09:16 Dose: 325 mg Glipizide (Glucotrol) 10 mg PO DAILY [facility] Last Admin: 06/09/17 09:16 Dose: 10 mg Guaifenesin/Codeine Phosphate (Guaifenesin/Codeine) 10 ml PO Q6H PRN PRN Reason: Cough and congestion Last Admin: 06/08/17 17:39 Dose: 10 ml Ceftriaxone Sodium 1 gm/ (Sodium Chloride) 100 mls @ 100 mls/hr IVPB DAILY [facility] Last Admin: 06/08/17 14:37 Dose: 100 mls/hr Azithromycin 500 mg/ Sodium (Chloride) 250 mls @ 250 mls/hr IVPB DAILY [facility] Last Admin: 06/09/17 09:21 Dose: 250 mls/hr Insulin Aspart (Novolog) 0 unit SC ACHS [facility] PRN Reason: Protocol Last Admin: 06/09/17 08:00 Dose: 3 unit Levothyroxine Sodium (Synthroid) 75 mcg PO DAILY@0630 [facility] Last Admin: 06/09/17 05:29 Dose: 75 mcg Methylprednisolone (Solu-Medrol) 40 mg IVP Q8 [facility] Last Admin: 06/09/17 05:18 Dose: 40 mg Metoprolol Tartrate (Lopressor) 25 mg PO BID [facility] Last Admin: 06/09/17 09:16 Dose: 25 mg Pantoprazole Sodium (Protonix Ec Tab) 40 mg PO DAILY [facility] Last Admin: 06/09/17 09:21 Dose: 40 mg Rosuvastatin Calcium (Crestor) 5 mg PO HS [facility] Last Admin: 06/08/17 21:21 Dose: 5 mg - Labs Labs: 06/09/17 06:11 06/09/17 06:11 PT 14.3 SECONDS (9.7-12.2) H 06/04/17 20:40 INR 1.3 06/04/17 20:40 APTT 30 SECONDS (21-34) 06/04/17 20:40 - Head Exam Additional comments: paroxyzms of cough - Eye Exam Eye Exam: Normal appearance - Respiratory Exam Additional comments: prolonged insp and expiration - Cardiovascular Exam Cardiovascular Exam: REGULAR RHYTHM - GI/Abdominal Exam GI & Abdominal Exam: Soft. absent: Distended, Tenderness - Extremities Exam Extremities Exam: absent: Calf Tenderness, Pedal Edema - Back Exam Back Exam: absent: CVA tenderness (L), CVA tenderness (R) - Psychiatric Exam Psychiatric exam: Anxious - Skin Skin Exam: Dry Assessment and Plan (1) Acute bronchitis Status: Acute (2) ESRD (end stage renal disease) Status: Acute (3) Multiple myeloma Status: Acute - Assessment and Plan (Free Text) Plan: follow oncology recommendations next dialysis tentatively 06/11
[2017-06-09 09:58] LABS: ANISOCYTOSIS SLIGHT; LYMPHOCYTE 4 % (20-40); MONOCYTE 3 % (0-10); NEUTROPHIL 93 % (50-75); PLATELET ESTIMATE NORMAL (NORMAL); POLYCHROMIC SLIGHT; TOTAL CELLS COUNTED 100
[2017-06-09 09:59] LABS: HYPOCHROMIC SLIGHT
[2017-06-09 10:00] LABS: TOXIC GRANULATION PRESENT
[2017-06-09] MEDS: guaiFENesin-Codeine 100-10mg/5ml Syrup (10ml) UD PO PRN ×2 (11:21→17:56)
--- NOTE | 2017-06-09 13:32 | CP.PCM.PN ---
Subjective - Date & Time of Evaluation Date of Evaluation: 06/09/17 Time of Evaluation: 09:00 - Subjective Subjective: patient still complaining of cough and shortness of breath on minimal exertion Afebrile On hemodialysis Denies any chest pain Objective - Vital Signs/Intake and Output Vital Signs (last 24 hours): Temp Pulse Resp BP Pulse Ox 98.6 F 96 H 20 112/58 L 95 06/09/17 09:12 06/09/17 09:12 06/09/17 09:12 06/09/17 09:16 06/09/17 09:12 Intake and Output: 06/09/17 06/09/17 06:59 18:59 Intake Total 260 Balance 260 - Medications Medications: Current Medications Albuterol/Ipratropium (Duoneb 3 Mg/0.5 Mg (3 Ml) Ud) 3 ml INH RQ6 [facility] Last Admin: 06/09/17 07:59 Dose: 3 ml Calcium Acetate (Phoslo) 667 mg PO BIDCC [facility] Last Admin: 06/09/17 08:25 Dose: 667 mg Docusate Sodium (Colace) 100 mg PO TID [facility] Last Admin: 06/09/17 09:16 Dose: 100 mg Famotidine (Pepcid) 20 mg PO DAILY [facility] Last Admin: 06/09/17 09:21 Dose: 20 mg Ferrous Sulfate (Feosol) 325 mg PO DAILY [facility] Last Admin: 06/09/17 09:16 Dose: 325 mg Glipizide (Glucotrol) 10 mg PO DAILY [facility] Last Admin: 06/09/17 09:16 Dose: 10 mg Guaifenesin/Codeine Phosphate (Guaifenesin/Codeine) 10 ml PO Q6H PRN PRN Reason: Cough and congestion Last Admin: 06/09/17 11:21 Dose: 10 ml Ceftriaxone Sodium 1 gm/ (Sodium Chloride) 100 mls @ 100 mls/hr IVPB DAILY [facility] Last Admin: 06/09/17 10:44 Dose: 100 mls/hr Azithromycin 500 mg/ Sodium (Chloride) 250 mls @ 250 mls/hr IVPB DAILY [facility] Last Admin: 06/09/17 09:21 Dose: 250 mls/hr Insulin Aspart (Novolog) 0 unit SC ACHS [facility] PRN Reason: Protocol Last Admin: 06/09/17 12:09 Dose: 3 unit Levothyroxine Sodium (Synthroid) 75 mcg PO DAILY@0630 [facility] Last Admin: 06/09/17 05:29 Dose: 75 mcg Methylprednisolone (Solu-Medrol) 40 mg IVP Q8 [facility] Last Admin: 06/09/17 05:18 Dose: 40 mg Metoprolol Tartrate (Lopressor) 25 mg PO BID [facility] Last Admin: 06/09/17 09:16 Dose: 25 mg Pantoprazole Sodium (Protonix Ec Tab) 40 mg PO DAILY [facility] Last Admin: 06/09/17 09:21 Dose: 40 mg Rosuvastatin Calcium (Crestor) 5 mg PO HS [facility] Last Admin: 06/08/17 21:21 Dose: 5 mg - Labs Labs: 06/09/17 06:11 06/09/17 06:11 PT 14.3 SECONDS (9.7-12.2) H 06/04/17 20:40 INR 1.3 06/04/17 20:40 APTT 30 SECONDS (21-34) 06/04/17 20:40 - Head Exam Head Exam: ATRAUMATIC, NORMOCEPHALIC - Eye Exam Eye Exam: Normal appearance - ENT Exam ENT Exam: Mucous Membranes Moist - Respiratory Exam Respiratory Exam: Rales - Cardiovascular Exam Cardiovascular Exam: REGULAR RHYTHM Assessment and Plan (1) Acute bronchitis Assessment & Plan: Being treated for bronchitis Continue antibiotics Continue neb treatment antitussives Hemodialysis chest x-ray showed no acute infiltrat Status: Acute (2) ESRD (end stage renal disease) Status: Acute (3) Multiple myeloma Status: Acute (4) COPD (chronic obstructive pulmonary disease) Status: Acute (5) Pulmonary hypertension Status: Acute
--- NOTE | 2017-06-09 16:38 | CP.PCM.PN ---
Subjective - Date & Time of Evaluation Date of Evaluation: 06/09/17 Time of Evaluation: 08:40 - Subjective Subjective: clinically same Objective - Vital Signs/Intake and Output Vital Signs (last 24 hours): Temp Pulse Resp BP Pulse Ox 98.6 F 96 H 20 112/58 L 95 06/09/17 09:12 06/09/17 09:12 06/09/17 09:12 06/09/17 09:16 06/09/17 09:12 Intake and Output: 06/09/17 06/09/17 06:59 18:59 Intake Total 260 1030 Balance 260 1030 - Medications Medications: Current Medications Albuterol/Ipratropium (Duoneb 3 Mg/0.5 Mg (3 Ml) Ud) 3 ml INH RQ6 [facility] Last Admin: 06/09/17 13:33 Dose: 3 ml Calcium Acetate (Phoslo) 667 mg PO BIDCC [facility] Last Admin: 06/09/17 08:25 Dose: 667 mg Docusate Sodium (Colace) 100 mg PO TID [facility] Last Admin: 06/09/17 13:44 Dose: 100 mg Famotidine (Pepcid) 20 mg PO DAILY [facility] Last Admin: 06/09/17 09:21 Dose: 20 mg Ferrous Sulfate (Feosol) 325 mg PO DAILY [facility] Last Admin: 06/09/17 09:16 Dose: 325 mg Glipizide (Glucotrol) 10 mg PO DAILY [facility] Last Admin: 06/09/17 09:16 Dose: 10 mg Guaifenesin/Codeine Phosphate (Guaifenesin/Codeine) 10 ml PO Q6H PRN PRN Reason: Cough and congestion Last Admin: 06/09/17 11:21 Dose: 10 ml Ceftriaxone Sodium 1 gm/ (Sodium Chloride) 100 mls @ 100 mls/hr IVPB DAILY [facility] Last Admin: 06/09/17 10:44 Dose: 100 mls/hr Azithromycin 500 mg/ Sodium (Chloride) 250 mls @ 250 mls/hr IVPB DAILY [facility] Last Admin: 06/09/17 09:21 Dose: 250 mls/hr Insulin Aspart (Novolog) 0 unit SC ACHS [facility] PRN Reason: Protocol Last Admin: 06/09/17 12:09 Dose: 3 unit Levothyroxine Sodium (Synthroid) 75 mcg PO DAILY@0630 [facility] Last Admin: 06/09/17 05:29 Dose: 75 mcg Methylprednisolone (Solu-Medrol) 40 mg IVP Q8 [facility] Last Admin: 06/09/17 13:45 Dose: 40 mg Metoprolol Tartrate (Lopressor) 25 mg PO BID [facility] Last Admin: 06/09/17 09:16 Dose: 25 mg Pantoprazole Sodium (Protonix Ec Tab) 40 mg PO DAILY [facility] Last Admin: 06/09/17 09:21 Dose: 40 mg Rosuvastatin Calcium (Crestor) 5 mg PO HS [facility] Last Admin: 06/08/17 21:21 Dose: 5 mg - Labs Labs: 06/09/17 06:11 06/09/17 06:11 PT 14.3 SECONDS (9.7-12.2) H 06/04/17 20:40 INR 1.3 06/04/17 20:40 APTT 30 SECONDS (21-34) 06/04/17 20:40 - Constitutional Appears: Well - Head Exam Head Exam: ATRAUMATIC, NORMAL INSPECTION, NORMOCEPHALIC - Eye Exam Eye Exam: EOMI, Normal appearance, PERRL Pupil Exam: NORMAL ACCOMODATION, PERRL - ENT Exam ENT Exam: Mucous Membranes Moist, Normal Exam - Neck Exam Neck Exam: Full ROM, Normal Inspection. absent: Lymphadenopathy - Respiratory Exam Respiratory Exam: Decreased Breath Sounds - Cardiovascular Exam Cardiovascular Exam: REGULAR RHYTHM, +S1, +S2 - GI/Abdominal Exam GI & Abdominal Exam: Soft, Diminished Bowel Sounds - Rectal Exam Rectal Exam: Deferred
[2017-06-10] MEDS: Albuterol-Ipratrop 3 mg / 0.5 (3 ml) UD INH SCH (03:04)
[2017-06-10] MEDS: MethylPREDNISolone 40 mg Vial IVP SCH ×3 (06:20→22:56)
[2017-06-10] MEDS: Levothyroxine 75 MCG TAB PO SCH (06:20)
[2017-06-10] MEDS: (Novolog) Insulin Aspart, Recombinant 100 u/ml 10 ml vial SC SCH ×4 (07:43→22:57)
[2017-06-10 08:11] LABS: BASO % 0.1 % (0.0-2.0); HEMOGLOBIN 12.8 g/dL (11.0-16.0); LYMPH # 1.2 K/uL (1.0-4.3); LYMPH % 5.2 % (20.0-40.0); MEAN CELL VOLUME 93.6 fL (81.0-99.0); MEAN CORPUSCULAR HEMOGLOBIN 30.6 pg (27.0-31.0); MEAN CORPUSCULAR HGB CONC 32.7 g/dL (33.0-37.0); MEAN PLATELET VOLUME 9.9 fL (7.2-11.7); MONO # 0.6 K/uL (0.0-0.8); MONO % 2.8 % (0.0-10.0); NEUT # 21.3 K/uL (1.8-7.0); NEUT % 91.9 % (50.0-75.0); NRBC % 0.1 % (0.0-2.0); PLATELET COUNT 230 K/uL (130-400); RBC 4.19 Mil/uL (3.80-5.20); WHITE BLOOD COUNT 23.2 K/uL (4.8-10.8)
[2017-06-10 08:37] LABS: ALB/GLOB RATIO 1.1 (1.0-2.1); ALBUMIN 3.9 g/dL (3.5-5.0); MAGNESIUM 2.5 mg/dL (1.6-2.3)
[2017-06-10] MEDS: guaiFENesin-Codeine 100-10mg/5ml Syrup (10ml) UD PO PRN ×2 (09:18→19:45)
[2017-06-10] MEDS: Pantoprazole 40 mg EC Tab PO SCH (09:19)
[2017-06-10] MEDS: Azithromycin 500 MG in Sodium Chloride 0.9% 250 ML IVPB SCH (10:05)
[2017-06-10 10:30] LABS: BANDS 2 % (0-2); LYMPHOCYTE 7 % (20-40); MONOCYTE 2 % (0-10); NEUTROPHIL 89 % (50-75); PLATELET ESTIMATE NORMAL (NORMAL); TOTAL CELLS COUNTED 100
[2017-06-10 10:31] LABS: ANISOCYTOSIS SLIGHT
--- NOTE | 2017-06-10 14:11 | CP.PCM.PN ---
Subjective - Date & Time of Evaluation Date of Evaluation: 06/10/17 Time of Evaluation: 11:00 - Subjective Subjective: The patient seen and examined Breathing and cough improving Afebrile Continue antibiotics per infectious Nebulizer treatment Stable from pulmonary standpoint Objective - Vital Signs/Intake and Output Vital Signs (last 24 hours): Temp Pulse Resp BP Pulse Ox 98.2 F 98 H 20 130/64 95 06/10/17 09:32 06/10/17 09:32 06/10/17 09:32 06/10/17 09:32 06/10/17 09:32 Intake and Output: 06/10/17 06/10/17 06:59 18:59 Intake Total 410 Balance 410 - Medications Medications: Current Medications Calcium Acetate (Phoslo) 667 mg PO BIDCC [facility] Last Admin: 06/10/17 07:42 Dose: 667 mg Docusate Sodium (Colace) 100 mg PO TID [facility] Last Admin: 06/10/17 13:42 Dose: 100 mg Famotidine (Pepcid) 20 mg PO DAILY [facility] Last Admin: 06/10/17 09:19 Dose: 20 mg Ferrous Sulfate (Feosol) 325 mg PO DAILY [facility] Last Admin: 06/10/17 09:18 Dose: 325 mg Glipizide (Glucotrol) 10 mg PO DAILY [facility] Last Admin: 06/10/17 09:18 Dose: 10 mg Guaifenesin/Codeine Phosphate (Guaifenesin/Codeine) 10 ml PO Q6H PRN PRN Reason: Cough and congestion Last Admin: 06/10/17 09:18 Dose: 10 ml Azithromycin 500 mg/ Sodium (Chloride) 250 mls @ 250 mls/hr IVPB DAILY [facility] Last Admin: 06/10/17 10:05 Dose: 250 mls/hr Insulin Aspart (Novolog) 0 unit SC ACHS [facility] PRN Reason: Protocol Last Admin: 06/10/17 12:00 Dose: 4 unit Levothyroxine Sodium (Synthroid) 75 mcg PO DAILY@0630 [facility] Last Admin: 06/10/17 06:20 Dose: 75 mcg Methylprednisolone (Solu-Medrol) 40 mg IVP Q8 [facility] Last Admin: 06/10/17 13:43 Dose: 40 mg Metoprolol Tartrate (Lopressor) 25 mg PO BID [facility] Last Admin: 06/10/17 09:18 Dose: 25 mg Pantoprazole Sodium (Protonix Ec Tab) 40 mg PO DAILY [facility] Last Admin: 06/10/17 09:19 Dose: 40 mg Rosuvastatin Calcium (Crestor) 5 mg PO HS [facility] Last Admin: 06/09/17 21:49 Dose: 5 mg - Labs Labs: 06/10/17 07:57 06/10/17 07:57 PT 14.3 SECONDS (9.7-12.2) H 06/04/17 20:40 INR 1.3 06/04/17 20:40 APTT 30 SECONDS (21-34) 06/04/17 20:40 Assessment and Plan (1) Acute bronchitis Status: Acute (2) ESRD (end stage renal disease) Status: Acute (3) Multiple myeloma Status: Acute (4) COPD (chronic obstructive pulmonary disease) Status: Acute (5) Pulmonary hypertension Status: Acute
--- NOTE | 2017-06-10 16:17 | CP.PCM.PN ---
Subjective - Date & Time of Evaluation Date of Evaluation: 06/10/17 Time of Evaluation: 08:40 - Subjective Subjective: clinically same Objective - Vital Signs/Intake and Output Vital Signs (last 24 hours): Temp Pulse Resp BP Pulse Ox 98.2 F 98 H 20 130/64 95 06/10/17 09:32 06/10/17 09:32 06/10/17 09:32 06/10/17 09:32 06/10/17 09:32 Intake and Output: 06/10/17 06/10/17 06:59 18:59 Intake Total 1360 Balance 1360 - Medications Medications: Current Medications Calcium Acetate (Phoslo) 667 mg PO BIDCC [facility] Last Admin: 06/10/17 07:42 Dose: 667 mg Docusate Sodium (Colace) 100 mg PO TID [facility] Last Admin: 06/10/17 13:42 Dose: 100 mg Famotidine (Pepcid) 20 mg PO DAILY [facility] Last Admin: 06/10/17 09:19 Dose: 20 mg Ferrous Sulfate (Feosol) 325 mg PO DAILY [facility] Last Admin: 06/10/17 09:18 Dose: 325 mg Glipizide (Glucotrol) 10 mg PO DAILY [facility] Last Admin: 06/10/17 09:18 Dose: 10 mg Guaifenesin/Codeine Phosphate (Guaifenesin/Codeine) 10 ml PO Q6H PRN PRN Reason: Cough and congestion Last Admin: 06/10/17 09:18 Dose: 10 ml Azithromycin 500 mg/ Sodium (Chloride) 250 mls @ 250 mls/hr IVPB DAILY [facility] Last Admin: 06/10/17 10:05 Dose: 250 mls/hr Insulin Aspart (Novolog) 0 unit SC ACHS [facility] PRN Reason: Protocol Last Admin: 06/10/17 12:00 Dose: 4 unit Levothyroxine Sodium (Synthroid) 75 mcg PO DAILY@0630 [facility] Last Admin: 06/10/17 06:20 Dose: 75 mcg Methylprednisolone (Solu-Medrol) 40 mg IVP Q8 [facility] Last Admin: 06/10/17 13:43 Dose: 40 mg Metoprolol Tartrate (Lopressor) 25 mg PO BID [facility] Last Admin: 06/10/17 09:18 Dose: 25 mg Pantoprazole Sodium (Protonix Ec Tab) 40 mg PO DAILY [facility] Last Admin: 06/10/17 09:19 Dose: 40 mg Rosuvastatin Calcium (Crestor) 5 mg PO HS [facility] Last Admin: 06/09/17 21:49 Dose: 5 mg - Labs Labs: 06/10/17 07:57 06/10/17 07:57 PT 14.3 SECONDS (9.7-12.2) H 06/04/17 20:40 INR 1.3 06/04/17 20:40 APTT 30 SECONDS (21-34) 06/04/17 20:40
[2017-06-11] MEDS: MethylPREDNISolone 40 mg Vial IVP SCH ×2 (05:18→13:47)
[2017-06-11] MEDS: Levothyroxine 75 MCG TAB PO SCH (05:50)
[2017-06-11 07:36] LABS: BASO % 0.1 % (0.0-2.0); LYMPH # 0.6 K/uL (1.0-4.3); LYMPH % 4.6 % (20.0-40.0); MEAN CELL VOLUME 94.5 fL (81.0-99.0); MEAN CORPUSCULAR HEMOGLOBIN 30.2 pg (27.0-31.0); MEAN CORPUSCULAR HGB CONC 31.9 g/dL (33.0-37.0); MEAN PLATELET VOLUME 9.8 fL (7.2-11.7); MONO # 0.2 K/uL (0.0-0.8); MONO % 1.6 % (0.0-10.0); NEUT # 13.3 K/uL (1.8-7.0); NEUT % 93.7 % (50.0-75.0); NRBC % 0.1 % (0.0-2.0); PLATELET COUNT 188 K/uL (130-400); RBC 3.98 Mil/uL (3.80-5.20); RED CELL DISTRIBUTION WIDTH 16.6 % (11.5-14.5); WHITE BLOOD COUNT 14.2 K/uL (4.8-10.8)
[2017-06-11] MEDS: (Novolog) Insulin Aspart, Recombinant 100 u/ml 10 ml vial SC SCH ×2 (07:41→11:57)
[2017-06-11 07:50] LABS: ALB/GLOB RATIO 1.2 (1.0-2.1); ALBUMIN 3.5 g/dL (3.5-5.0); CALCIUM 8.1 mg/dl (8.6-10.4); MAGNESIUM 2.3 mg/dL (1.6-2.3)
[2017-06-11 08:58] LABS: LYMPHOCYTE 2 % (20-40); MONOCYTE 1 % (0-10); NEUTROPHIL 97 % (50-75); TOTAL CELLS COUNTED 100
[2017-06-11 08:59] LABS: ANISOCYTOSIS SLIGHT; PLATELET ESTIMATE NORMAL (NORMAL)
[2017-06-11] MEDS: guaiFENesin-Codeine 100-10mg/5ml Syrup (10ml) UD PO PRN (09:14)
[2017-06-11] MEDS: Pantoprazole 40 mg EC Tab PO SCH (09:14)
[2017-06-11] MEDS: Azithromycin 500 MG in Sodium Chloride 0.9% 250 ML IVPB SCH (09:50)
--- NOTE | 2017-06-11 11:56 | CP.PCM.PN ---
Subjective - Date & Time of Evaluation Date of Evaluation: 06/11/17 Time of Evaluation: 08:00 - Subjective Subjective: patient seen and examined Sitting comfortably in no acute distress Afebrile No chest pain Cough much improved Objective - Vital Signs/Intake and Output Vital Signs (last 24 hours): Temp Pulse Resp BP Pulse Ox 98.7 F 93 H 20 132/71 98 06/11/17 08:43 06/11/17 08:43 06/11/17 08:43 06/11/17 08:43 06/11/17 08:43 Intake and Output: 06/11/17 06/11/17 06:59 18:59 Intake Total 360 250 Balance 360 250 - Medications Medications: Current Medications Calcium Acetate (Phoslo) 667 mg PO BIDCC [facility] Last Admin: 06/11/17 07:38 Dose: 667 mg Docusate Sodium (Colace) 100 mg PO TID [facility] Last Admin: 06/11/17 09:11 Dose: 100 mg Famotidine (Pepcid) 20 mg PO DAILY [facility] Last Admin: 06/11/17 09:14 Dose: 20 mg Ferrous Sulfate (Feosol) 325 mg PO DAILY [facility] Last Admin: 06/11/17 09:11 Dose: 325 mg Glipizide (Glucotrol) 10 mg PO DAILY [facility] Last Admin: 06/11/17 09:11 Dose: 10 mg Guaifenesin/Codeine Phosphate (Guaifenesin/Codeine) 10 ml PO Q6H PRN PRN Reason: Cough and congestion Last Admin: 06/11/17 09:14 Dose: 10 ml [facility] Reason: Protocol Last Admin: 06/11/17 07:41 Dose: 4 unit Levothyroxine Sodium (Synthroid) 75 mcg PO DAILY@0630 [facility] Last Admin: 06/11/17 05:50 Dose: 75 mcg Methylprednisolone (Solu-Medrol) 40 mg IVP Q8 [facility] Last Admin: 06/11/17 05:18 Dose: 40 mg Metoprolol Tartrate (Lopressor) 25 mg PO BID [facility] Last Admin: 06/10/17 17:55 Dose: 25 mg Pantoprazole Sodium (Protonix Ec Tab) 40 mg PO DAILY [facility] Last Admin: 06/11/17 09:14 Dose: 40 mg Rosuvastatin Calcium (Crestor) 5 mg PO HS [facility] Last Admin: 06/10/17 22:56 Dose: 5 mg - Labs Labs: 06/11/17 07:09 06/11/17 07:09 PT 14.3 SECONDS (9.7-12.2) H 06/04/17 20:40 INR 1.3 06/04/17 20:40 APTT 30 SECONDS (21-34) 06/04/17 20:40 - Head Exam Head Exam: ATRAUMATIC, NORMOCEPHALIC - ENT Exam ENT Exam: Mucous Membranes Moist - Neck Exam Neck Exam: Normal Inspection - Respiratory Exam Respiratory Exam: Clear to Ausculation Bilateral - Cardiovascular Exam Cardiovascular Exam: REGULAR RHYTHM Assessment and Plan (1) Acute bronchitis Assessment & Plan: switch to p.o. antibiotics Nebulizer treatment P.o. prednisone in tapering dose Status: Acute (2) ESRD (end stage renal disease) Status: Acute (3) Multiple myeloma Status: Acute (4) COPD (chronic obstructive pulmonary disease) Status: Acute (5) Pulmonary hypertension Status: Acute
--- NOTE | 2017-06-11 12:07 | CP.PCM.PN ---
Subjective - Date & Time of Evaluation Date of Evaluation: 06/11/17 Time of Evaluation: 12:04 - Subjective Subjective: Alert; much less cough with steroids BUN increased from steroids stable dialysis on 06/08- UF 2600ml has been afebrile; no nausea, vomiting, diarrhea, chills Objective - Vital Signs/Intake and Output Vital Signs (last 24 hours): Temp Pulse Resp BP Pulse Ox 98.7 F 93 H 20 132/71 98 06/11/17 08:43 06/11/17 08:43 06/11/17 08:43 06/11/17 08:43 06/11/17 08:43 Intake and Output: 06/11/17 06/11/17 06:59 18:59 Intake Total 360 250 Balance 360 250 - Medications Medications: Current Medications [facility] Last Admin: 06/11/17 07:38 Dose: 667 mg Docusate Sodium (Colace) 100 mg PO TID [facility] Last Admin: 06/11/17 09:11 Dose: 100 mg Famotidine (Pepcid) 20 mg PO DAILY [facility] Last Admin: 06/11/17 09:14 Dose: 20 mg Ferrous Sulfate (Feosol) 325 mg PO DAILY [facility] Last Admin: 06/11/17 09:11 Dose: 325 mg Glipizide (Glucotrol) 10 mg PO DAILY [facility] Last Admin: 06/11/17 09:11 Dose: 10 mg Guaifenesin/Codeine Phosphate (Guaifenesin/Codeine) 10 ml PO Q6H PRN PRN Reason: Cough and congestion Last Admin: 06/11/17 09:14 Dose: 10 ml [facility]ulin Aspart ([facility]) [facility] PRN Reason: Protocol Last Admin: 06/11/17 11:57 Dose: 3 unit Levothyroxine Sodium (Synthroid) 75 mcg PO DAILY@0630 [facility] Last Admin: 06/11/17 05:50 Dose: 75 mcg Methylprednisolone (Solu-Medrol) 40 mg IVP Q8 [facility] Last Admin: 06/11/17 05:18 Dose: 40 mg Metoprolol Tartrate (Lopressor) 25 mg PO BID [facility] Last Admin: 06/11/17 11:59 Dose: Not Given Pantoprazole Sodium (Protonix Ec Tab) 40 mg PO DAILY [facility] Last Admin: 06/11/17 09:14 Dose: 40 mg Rosuvastatin Calcium (Crestor) 5 mg PO HS [facility] Last Admin: 06/10/17 22:56 Dose: 5 mg - Labs Labs: 06/11/17 07:09 06/11/17 07:09 PT 14.3 SECONDS (9.7-12.2) H 06/04/17 20:40 INR 1.3 06/04/17 20:40 APTT 30 SECONDS (21-34) 06/04/17 20:40 - Constitutional Appears: No Acute Distress, Chronically Ill - Head Exam Head Exam: ATRAUMATIC, NORMAL INSPECTION - Eye Exam Eye Exam: EOMI, Normal appearance - Neck Exam Neck Exam: Normal Inspection. absent: Tenderness - Respiratory Exam Respiratory Exam: Rhonchi, NORMAL BREATHING PATTERN - Cardiovascular Exam Cardiovascular Exam: REGULAR RHYTHM, +S1 - GI/Abdominal Exam GI & Abdominal Exam: Soft. absent: Tenderness - Extremities Exam Extremities Exam: Normal Inspection. absent: Tenderness - Neurological Exam Neurological Exam: Alert, CN II-XII Intact - Skin Skin Exam: Dry, Warm Assessment and Plan (1) Acute bronchitis Status: Acute (2) CHF (congestive heart failure) Status: Acute (3) ESRD (end stage renal disease) Status: Acute (4) Multiple myeloma Status: Acute (5) Diabetes 1.5, managed as type 2 Status: Chronic (6) HTN (hypertension) Status: Chronic - Assessment and Plan (Free Text) Plan: Steroids as per pulm dialysis today with adequate UF goal increase binders as phos elevated same other meds
[2017-06-11 18:46] VITALS: BP 110/63; PULSE 114; RESP 18; TEMP 97.4; O2SAT 99
--- NOTE | 2017-06-11 18:59 | CP.PCM.PN ---
Subjective - Date & Time of Evaluation Date of Evaluation: 06/11/17 Time of Evaluation: 08:40 - Subjective Subjective: clinically same Objective - Vital Signs/Intake and Output Vital Signs (last 24 hours): Temp Pulse Resp BP Pulse Ox 97.4 F L 114 H 18 110/63 99 06/11/17 18:20 06/11/17 18:20 06/11/17 18:20 06/11/17 18:20 06/11/17 18:20 Intake and Output: 06/11/17 06/11/17 06:59 18:59 Intake Total 360 1030 Balance 360 1030 - Medications Medications: Current Medications Calcium Acetate (Phoslo) 667 mg PO TIDCC [facility] Last Admin: 06/11/17 12:39 Dose: 667 mg Docusate Sodium (Colace) 100 mg PO TID [facility] Last Admin: 06/11/17 13:45 Dose: 100 mg Famotidine (Pepcid) 20 mg PO DAILY [facility] Last Admin: 06/11/17 09:14 Dose: 20 mg Ferrous Sulfate (Feosol) 325 mg PO DAILY [facility] Last Admin: 06/11/17 09:11 Dose: 325 mg Glipizide (Glucotrol) 10 mg PO DAILY [facility] Last Admin: 06/11/17 09:11 Dose: 10 mg Guaifenesin/Codeine Phosphate (Guaifenesin/Codeine) 10 ml PO Q6H PRN PRN Reason: Cough and congestion Last Admin: 06/11/17 09:14 Dose: 10 ml Insulin Aspart (Novolog) 0 unit SC ACHS [facility] PRN Reason: Protocol Last Admin: 06/11/17 11:57 Dose: 3 unit Levothyroxine Sodium (Synthroid) 75 mcg PO DAILY@0630 [facility] Last Admin: 06/11/17 05:50 Dose: 75 mcg Methylprednisolone (Solu-Medrol) 40 mg IVP Q8 [facility] Last Admin: 06/11/17 13:47 Dose: Not Given Metoprolol Tartrate (Lopressor) 25 mg PO BID [facility] Last Admin: 06/11/17 11:59 Dose: Not Given Pantoprazole Sodium (Protonix Ec Tab) 40 mg PO DAILY [facility] Last Admin: 06/11/17 09:14 Dose: 40 mg Rosuvastatin Calcium (Crestor) 5 mg PO HS [facility] Last Admin: 06/10/17 22:56 Dose: 5 mg - Labs Labs: 06/11/17 07:09 06/11/17 07:09 PT 14.3 SECONDS (9.7-12.2) H 06/04/17 20:40 INR 1.3 06/04/17 20:40 APTT 30 SECONDS (21-34) 06/04/17 20:40 - Constitutional Appears: Well - Head Exam Head Exam: ATRAUMATIC, NORMAL INSPECTION, NORMOCEPHALIC - Eye Exam Eye Exam: EOMI, Normal appearance, PERRL Pupil Exam: NORMAL ACCOMODATION, PERRL - ENT Exam ENT Exam: Mucous Membranes Moist, Normal Exam - Neck Exam Neck Exam: Full ROM, Normal Inspection. absent: Lymphadenopathy - Respiratory Exam Respiratory Exam: Decreased Breath Sounds - Cardiovascular Exam Cardiovascular Exam: REGULAR RHYTHM, +S1, +S2 - GI/Abdominal Exam GI & Abdominal Exam: Soft, Diminished Bowel Sounds - Rectal Exam Rectal Exam: Deferred
== END 2017-06-11 19:20 | disposition home or self-care (01) | DRG 190 ==
LOC: C.ER 19:32 → C.9E 22:32 → C.3T 06-05 01:07
PROVIDERS: ADMIT Internal Medicine Nephrology; ATTEND Internal Medicine Nephrology
DX: J44.0 Chronic obstructive pulmonary disease with (acute) lower respiratory infection (principal); N18.6 End stage renal disease; I13.2 Hypertensive heart and chronic kidney disease with heart failure and with stage 5 chronic kidney disease, or end stage renal disease; I27.20 Pulmonary hypertension, unspecified; E11.22 Type 2 diabetes mellitus with diabetic chronic kidney disease; I48.91 Unspecified atrial fibrillation; C90.01 Multiple myeloma in remission; D63.1 Anemia in chronic kidney disease; I50.9 Heart failure, unspecified; E03.9 Hypothyroidism, unspecified; E78.00 Pure hypercholesterolemia, unspecified; R06.03 Acute respiratory distress; E78.5 Hyperlipidemia, unspecified; J20.9 Acute bronchitis, unspecified; Z79.4 Long term (current) use of insulin; Z87.891 Personal history of nicotine dependence; Z99.2 Dependence on renal dialysis; Z99.81 Dependence on supplemental oxygen

== ENCOUNTER 2017-11-06 09:33 | Day surgery (SDC) | payer MEDICARE ==
[2017-11-06 10:14] VITALS: BMI 29.7
[2017-11-06 10:58] LABS: ALB/GLOB RATIO 1.9 (1.0-2.1); ALBUMIN 4.5 g/dL (3.5-5.0); CALCIUM 9.6 mg/dl (8.6-10.4)
[2017-11-06 11:07] LABS: BASO % 0.4 % (0.0-2.0); EOS # 0.1 K/uL (0.0-0.7); EOS % 0.6 % (0.0-4.0); HEMOGLOBIN 12.5 g/dL (11.0-16.0); LYMPH # 1.8 K/uL (1.0-4.3); LYMPH % 14.6 % (20.0-40.0); MEAN CELL VOLUME 92.7 fL (81.0-99.0); MEAN CORPUSCULAR HEMOGLOBIN 31.6 pg (27.0-31.0); MEAN CORPUSCULAR HGB CONC 34.1 g/dL (33.0-37.0); MEAN PLATELET VOLUME 10.6 fL (7.2-11.7); MONO # 0.7 K/uL (0.0-0.8); MONO % 5.4 % (0.0-10.0); NEUT # 9.9 K/uL (1.8-7.0); RBC 3.95 Mil/uL (3.80-5.20); RED CELL DISTRIBUTION WIDTH 14.3 % (11.5-14.5); WHITE BLOOD COUNT 12.6 K/uL (4.8-10.8)
[2017-11-06] MEDS ORDERED: ceFAZolin IV 1 gm in Dextrose 0 GM/0 ML BAG IVPB ONE (11:30)
[2017-11-06] MEDS ORDERED: ceFAZolin IV 2 gm in Dextrose 0 GM/0 ML BAG IVPB ONE (11:30)
[2017-11-06] MEDS ORDERED: Iohexol 240 (50 ml) ONE ×2 (11:30→11:33)
[2017-11-06] MEDS ORDERED: HEPARIN-NS 5,000 UNITS/500 ML 5,000 UNIT/500 ML BAG IV ONE (11:30)
[2017-11-06] MEDS ORDERED: Lidocaine 2% MPF (5 ml) Inj ONE (11:31)
[2017-11-06] MEDS ORDERED: Midazolam 2 MG/2 ML VIAL ONE (12:05)
--- NOTE | 2017-11-06 12:41 | PCM.SURG1 ---
Surgeon's Initial Post Op Note - Surgeon's Notes Surgeon: Dr. Ontiveros Bootmaker Hand: Dago PGY2 Type of Anesthesia: IV Sedation, Local Anesthesia Administered By: Dr. Ch Pre-Operative Diagnosis: Malfunctioning AVF Operative Findings: Normal flow, without stenosis (see operative dictation) Post-Operative Diagnosis: Functioning AVF Operation Performed: Fistulogram Specimen/Specimens Removed: N/A Estimated Blood Loss: EBL {In ML}: 10 Blood Products Given: N/A Drains Used: No Drains Post-Op Condition: Good Date of Surgery/Procedure: 11/06/17 Time of Surgery/Procedure: 12:41
[2017-11-06] MEDS ORDERED: Sodium Chloride 0.9% 1,000 ML IV SCH (12:45)
[2017-11-06 13:05] VITALS: BP 133/68; PULSE 80; RESP 18; TEMP 97; O2SAT 100
--- NOTE | 2017-11-07 00:13 | OP ---
PROCEDURE DATE: 11/06/2017 PREOPERATIVE DIAGNOSES: Renal failure, malfunctioning fistula of left arm. PROCEDURE CARRIED OUT: Fistulogram, left arm. SURGEON: Murtaza Ontiveros Jr., MD COMPENSATION/BENEFITS SPECIALIST: Yonatan Loza DO ANESTHESIOLOGIST: Dr. Ch ANESTHESIA: Local with sedation. INDICATIONS: An 82-year-old woman with renal insufficiency has a transposed cephalic vein fistula in the left arm. was difficulty in accessing it twice. OPERATIVE FINDINGS: There is no evidence of arterial stenosis. There is no evidence of any venous stenosis including the central veins all the way to the right atrium. There was an indwelling Morgan catheter in the left side. Although the initial pictures were somewhat secured by on the table, we were able to adjust this with the use of angulation of the tube, and this showed that there was no evidence of any significant stenosis in the cephalic vein fistula, throughout its entire course. On ultrasound exam, it measured between 6 and 8 mm in diameter. DESCRIPTION OF PROCEDURE: The patient was given local anesthesia and using compression, the fistula was punctured. A guidewire was advanced centrally. A micropuncture sheath was then positioned. The central veins were studied. Pressure was applied to the more cephalad portion of the fistula and retrograde reflexes down to the arterial site where the arterial anastomosis was visualized and multiple projections without any evidence of significant stenosis. After this had been done, I carefully reviewed the films, showing that there was no evidence of any significant stenosis or occlusion from the arterial anastomosis to central venous system. We terminated the procedure. Pressure was then applied to the puncture site. Blood loss for the procedure was 5 mL. OPERATION CARRIED OUT: Fistulogram, left arm. Murtaza Ontiveros Jr., MD
--- NOTE | 2017-11-08 17:39 | RAD ---
Date of service: 11/06/2017 PROCEDURE: Intraoperative Fluoroscopy. HISTORY: MALFUNCTIONING FISTULA FINDINGS: Fluoroscopic assistance was provided for malfunctioning fistula.. Please refer to the operative report from ABIEL Serrano.
== END 2017-11-06 13:06 | disposition home or self-care (01) ==
LOC: C.SPRAD 09:33 → C.SDS 09:33
PROVIDERS: ATTEND Surgery Vascular Surgery
DX: T82.858A Stenosis of other vascular prosthetic devices, implants and grafts, initial encounter (principal); N18.9 Chronic kidney disease, unspecified
CPT/HCPCS: 36415; 36901; 80053; 82948; 85025; 85610; 85730; C1725; C1769; C1894; J1644; J2250; J3010; J7030; J7040; Q9966

== ENCOUNTER 2018-04-14 08:06 | Inpatient (IN) | payer MEDICARE ==
[2018-04-14 08:07] VITALS: BMI 29.7
[2018-04-14 09:35] LABS: ALB/GLOB RATIO 1.5 (1.0-2.1); ALBUMIN 3.7 g/dL (3.5-5.0); CALCIUM 8.6 mg/dl (8.6-10.4)
[2018-04-14 09:47] LABS: BASO % 0.3 % (0.0-2.0); EOS # 0.1 K/uL (0.0-0.7); EOS % 0.6 % (0.0-4.0); HEMOGLOBIN 11.8 g/dL (11.0-16.0); LYMPH # 0.9 K/uL (1.0-4.3); LYMPH % 6.8 % (20.0-40.0); MEAN CELL VOLUME 94.1 fL (81.0-99.0); MEAN CORPUSCULAR HGB CONC 32.9 g/dL (33.0-37.0); MONO # 1.1 K/uL (0.0-0.8); MONO % 8.1 % (0.0-10.0); NEUT # 11.1 K/uL (1.8-7.0); NEUT % 84.2 % (50.0-75.0); PLATELET COUNT 165 K/uL (130-400); RBC 3.82 Mil/uL (3.80-5.20); RED CELL DISTRIBUTION WIDTH 14.1 % (11.5-14.5); TROPONIN I 0.031 ng/mL (0.00-0.120); WHITE BLOOD COUNT 13.2 K/uL (4.8-10.8)
[2018-04-14] MEDS: Albuterol-Ipratrop 3 mg / 0.5 (3 ml) UD INH STA ×2 (09:53→09:58)
[2018-04-14] MEDS ORDERED: Albuterol-Ipratrop 3 mg / 0.5 (3 ml) UD ONE ×2 (09:59→11:19)
--- NOTE | 2018-04-14 10:27 | RAD ---
Date of service: 04/14/2018 PROCEDURE: CHEST RADIOGRAPH, 1 VIEW HISTORY: chest pain/cough COMPARISON: 06/08/2017. FINDINGS: The left-sided MediPort terminates in the right atrium. LUNGS: The lungs are well inflated and clear. There is mild pulmonary venous congestion. PLEURA: No pneumothorax or pleural effusion. CARDIOVASCULAR: There is mild cardiomegaly. There are aortic atherosclerotic calcifications present. OSSEOUS STRUCTURES: Within normal limits for the patient's age. VISUALIZED UPPER ABDOMEN: Normal. OTHER FINDINGS: None. IMPRESSION: No acute findings.
--- NOTE | 2018-04-14 10:32 | C.PDOC ---
History Of Present Illness 83 year old female with a history of multiple myeloma presents to the ED for evaluation of worsening productive cough associated with subjective fever for 2 weeks. The patient reports the phlegm is yellow in color. Notes prior visit to PMD who prescribed her a z-pack with no relief. She also notes last chemo was completed 3-4 weeks ago and is on dialysis MWF, last completed 2 days ago without complications. Received flu shot this year. Denies chest pain, abdominal pain, diarrhea, nausea, vomiting, and any other associated symptoms. Time Seen by Provider: 04/14/18 08:23 Chief Complaint (Nursing): Cough, Cold, Congestion History Per: Patient History/Exam Limitations: no limitations Onset/Duration Of Symptoms: Days (x2 weeks) Current Symptoms Are (Timing): Still Present Associated Symptoms: Fever (subjective) Recent travel outside of the [place]: No Past Medical History Reviewed: Historical Data, Nursing Documentation, Vital Signs Vital Signs: Last Vital Signs Temp 99.2 F 04/14/18 08:17 Pulse 94 H 04/14/18 10:13 Resp 18 04/14/18 10:13 BP 106/51 L 04/14/18 10:13 Pulse Ox 95 04/14/18 10:13 - Medical History PMH: Anemia, Arthritis, Atrial Fibrillation, Cardia Arrhythmia, CHF, HTN, Hypercholesterolemia, Hyperlipidemia, Hypothyroidism, End Stage Renal Disease, Chronic Kidney Disease Surgical History: Endoscopy - [facility] Procedures EXCISION OF STOMACH, ENDO, DIAGN (06/28/16) EXTRACTION OF ILIAC BONE MARROW, PERC APPROACH, DIAGN (12/25/16) FLUOROSCOPY OF SUP VENA CAVA USING L OSM CONTRAST, GUIDANCE (12/25/16) INSERT VAD RESERVOIR IN CHEST SUBCU/FASCIA, OPEN (12/25/16) INSERTION OF INFUSION DEV INTO SUP VENA CAVA, PERC APPROACH (12/25/16) INSPECTION OF LOWER INTESTINAL TRACT, ENDO (06/28/16) INSPECTION OF UPPER INTESTINAL TRACT, ENDO (09/25/16) INTRODUCE OTH ANTINEOPLASTIC IN CENTRAL VEIN, PERC (12/25/16) PERFORMANCE OF URINARY FILTRATION, MULTIPLE (12/25/16) EVANGELICAL OF CARDIAC RHYTHM, SINGLE (12/25/16) TRANSFUSE NONAUT RED BLOOD CELLS IN PERIPH VEIN, PERC (12/25/16) Family History: States: Unknown Family Hx - Social History Hx Tobacco Use: No Hx Alcohol Use: No Hx Substance Use: No - Immunization History Hx Tetanus Toxoid Vaccination: Yes Hx Influenza Vaccination: Yes Hx Pneumococcal Vaccination: Yes Review Of Systems Except As Marked, All Systems Reviewed And Found Negative. Constitutional: Positive for: Fever (subjective. ) Cardiovascular: Negative for: Chest Pain Respiratory: Positive for: Cough (productive. ) Gastrointestinal: Negative for: Nausea, Vomiting, Abdominal Pain, Diarrhea Physical Exam - Physical Exam Skin: Warm, Dry Head: Atraumatic, Normacephalic Eye(s): bilateral: Normal Inspection Ear(s): Bilateral: Normal Oral Mucosa: Moist Throat: Normal, No Erythema, No Exudate Neck: Normal ROM, Supple Chest: Symmetrical Cardiovascular: Rhythm Regular, No Murmur Respiratory: Normal Breath Sounds, No Rales, No Rhonchi, No Wheezing Gastrointestinal/Abdominal: Normal Exam, Soft, No Tenderness Extremity: Normal ROM (x4), Other ( shunt in left upper extremity.) Neurological/Psych: Oriented x3, Normal Speech, Normal Cognition ED Course And Treatment - Laboratory Results Result Diagrams: 04/14/18 09:18 04/14/18 09:18 O2 Sat by Pulse Oximetry: 95 (RA) Pulse Ox Interpretation: Normal - Other Rad CXR X-Ray: Viewed By Me, Read By Radiologist Interpretation: FINDINGS: The left-sided MediPort terminates in the right atrium. LUNGS: The lungs are well inflated and clear. There is mild pulmonary venous congestion. PLEURA: No pneumothorax or pleural effusion. CARDIOVASCULAR: There is mild cardiomegaly. There are aortic atherosclerotic calcifications present. OSSEOUS STRUCTURES: Within normal limits for the patient's age. VISUALIZED UPPER ABDOMEN: Normal. OTHER FINDINGS: None. IMPRESSION: No acute findings. Medical Decision Making Medical Decision Making: Plan: -EKG -Blood sent. -CXR -Blood culture. -Influenza Progress/Update: 10:43pm : Spoke with Hospitalist who agreed to admit the patient. Disposition - Disposition Disposition: HOSPITALIZED Disposition Time: 10:50 Condition: FAIR - Clinical Impression Clinical Impression: COPD exacerbation, Bronchitis - Scribe Statement The provider has reviewed the documentation as recorded by the Scribe (Enma Baldwin) Provider Attestation: All medical record entries made by the Scribe were at my direction and personally dictated by me. I have reviewed the chart and agree that the record accurately reflects my personal performance of the history, physical exam, medical decision making, and the department course for this patient. I have also personally directed, reviewed, and agree with the discharge instructions and disposition.
[2018-04-14 10:42] LABS: LYMPHOCYTE 6 % (20-40); MONOCYTE 7 % (0-10); NEUTROPHIL 87 % (50-75); PLATELET ESTIMATE NORMAL (NORMAL); TOTAL CELLS COUNTED 100
[2018-04-14 10:43] LABS: ANISOCYTOSIS SLIGHT; HYPOCHROMIC SLIGHT; POLYCHROMIC SLIGHT
[2018-04-14] MEDS ORDERED: Albuterol-Ipratrop 3 mg / 0.5 (3 ml) UD INH STA ×2 (10:52)
[2018-04-14] MEDS ORDERED: Ipratropium 0.02% Inhal Soln (0.5 mg/2.5 ml) UD IH ONE (11:19)
[2018-04-14] MEDS ORDERED: Magnesium Sulfate 1 gm in D5W 1 GM/100 ML BAG IVPB ONE ×2 (11:24→12:08)
[2018-04-14] MEDS: Magnesium Sulfate 1 gm in D5W 1 GM/100 ML BAG IVPB SCH ×2 (11:41→12:05)
[2018-04-14] MEDS ORDERED: Acetylcysteine 20% Inhal Soln (4ml) INH SCH (13:00)
--- NOTE | 2018-04-14 13:19 | CP.PCM.HP ---
<Shaquille Wilder - Last Filed: 04/14/18 14:16> History of Present Illness - History of Present Illness History of Present Illness: PGY-[address] Muñoz CC: worsening cough Patient is 83 year old Czech Female with pmhx of multiple myeloma (no longer on chemotherapy, last 03/03), ESRD MWF, HTN, hypothyroidism, HLD, DMII that came to ER today for worsening cough with yellowish sputum that started about 1 1/2 weeks ago. Patient had one episode similar to this last year and was hospita lized for a week. Patient says cough comes and goes, gets worse at nightime. Patient visited her PMD Dr Winkler recently, who gave her Zpack and cough syrup promethazine, but patient states it did not help. Patient feels as if something is clogged in her throat, believes it is phlegm. Patient admits to palpitations that come and go, and subjective fevers in previous days, but not currently. Patient states that she had sick contact with other patient that were coughing at her dialysis center. Patient denies any recent sickness or travel. Patient has left lower quadrant pain and headaches when coughing. Patient denies fevers, chills, sore throat, abdominal pain, nausea, vomiting, diarrhea or constipation, leg swelling or pain or urinary complaints. 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, lives with brother and niece MEds: Acyclovir, calcium acetate, famotidine 20 mg PO QD , ferrous sulfate, Glipizide 10mg PO QD, levothyroxine 75mcg PO QD, metoprolol 25 mg PO QD, rosuvastatin 5mg PO QD Present on Admission - Present on Admission Any Indicators Present on Admission: No Review of Systems - Review of Systems All systems: reviewed and no additional remarkable complaints except Review of Systems: as stated in HPI Past Patient History - Infectious Disease Hx of Infectious Diseases: None - Past Medical History & Family History Past Medical History?: Yes - Past Social History Smoking Status: Former Smoker - CARDIAC Hx Atrial Fibrillation: Yes Hx Cardia Arrhythmia: Yes Hx Congestive Heart Failure: Yes Hx Hypercholesterolemia: Yes Hx Hypertension: Yes - NEUROLOGICAL Hx Neurological Disorder: No - HEENT Hx HEENT Problems: Yes Hx Cataracts: Yes (bilateral) - RENAL Hx Chronic Kidney Disease: Yes - ENDOCRINE/METABOLIC Hx Hypothyroidism: Yes - HEMATOLOGICAL/ONCOLOGICAL Hx Anemia: Yes - INTEGUMENTARY Hx Dermatological Problems: No - MUSCULOSKELETAL/RHEUMATOLOGICAL Hx Arthritis: Yes - GASTROINTESTINAL Hx Gastrointestinal Disorders: Yes Hx Hemorrhoids: Yes - GENITOURINARY/GYNECOLOGICAL Hx Genitourinary Disorders: No - PSYCHIATRIC Hx Substance Use: No - SURGICAL HISTORY Hx Surgeries: Yes Hx Arteriovenous Shunt: Yes (LEFT ARM AV ,permacath) Hx Vascular Access Device: Yes (perma cath elaina cath) - ANESTHESIA Hx Anesthesia: Yes Hx Anesthesia Reactions: No Hx Malignant Hyperthermia: No Meds Allergies/Adverse Reactions: Allergies Allergy/AdvReac Type Severity Reaction Status Date / Time No Known Allergies Allergy Verified 04/14/18 08:40 Physical Exam - Constitutional Appears: Non-toxic, No Acute Distress - Head Exam Head Exam: ATRAUMATIC, NORMAL INSPECTION, NORMOCEPHALIC - Eye Exam Eye Exam: EOMI, Normal appearance - ENT Exam ENT Exam: Mucous Membranes Moist, Normal External Ear Exam, TM's Normal Bilaterally Additional comments: mild erythema oropharynx - Neck Exam Neck exam: Positive for: Full Rom, Normal Inspection. Negative for: Lymphadenopathy, Tenderness, Thyromegaly - Respiratory Exam Respiratory Exam: Rales (diffuse b/l), Wheezes (diffuse, b/l). absent: Accessory Muscle Use, Respiratory Distress - Cardiovascular Exam Cardiovascular Exam: Tachycardia, REGULAR RHYTHM, +S1, +S2 - GI/Abdominal Exam GI & Abdominal Exam: Distended, Normal Bowel Sounds, Soft, Tenderness (left lower quadrant tenderness with superficial palpation ) - Extremities Exam Extremities exam: Positive for: full ROM, normal inspection, pedal pulses present. Negative for: calf tenderness, joint swelling, pedal edema, tenderness - Back Exam Back exam: FULL ROM, NORMAL INSPECTION. absent: rash noted - Neurological Exam Neurological exam: Alert, CN II-XII Intact, Oriented x3 - Psychiatric Exam Psychiatric exam: Normal Affect, Normal Mood - Skin Skin Exam: Dry, Intact, Normal Color, Warm Results - Vital Signs Recent Vital Signs: Last Vital Signs Temp 98.4 F 04/14/18 12:25 Pulse 99 H 04/14/18 12:25 Resp 18 04/14/18 12:25 BP 130/52 L 04/14/18 12:25 Pulse Ox 96 04/14/18 12:25 - Labs Result Diagrams: 04/14/18 09:18 04/14/18 09:18 Labs: Laboratory Results - last 24 hr 04/14/18 04/14/18 04/14/18 09:18 09:18 09:18 WBC 13.2 H RBC 3.82 Hgb 11.8 Hct 35.9 MCV 94.1 MCH 31.0 MCHC 32.9 L RDW 14.1 Plt Count 165 MPV 11.0 Neut % (Auto) 84.2 H Lymph % (Auto) 6.8 L [place] % (Auto) 8.1 Eos % (Auto) 0.6 Baso % (Auto) 0.3 Neut # (Auto) 11.1 H Lymph # (Auto) 0.9 L [place] # (Auto) 1.1 H Eos # (Auto) 0.1 Baso # (Auto) 0.0 Neutrophils % (Manual) 87 H Lymphocytes % (Manual) 6 L Monocytes % (Manual) 7 Platelet Estimate Normal Polychromasia Slight Hypochromasia (manual) Slight Anisocytosis (manual) Slight Sodium 137 Potassium 3.7 Chloride 98 Carbon Dioxide 31 H Anion Gap 13 BUN 57 H Creatinine 3.9 H Est GFR ( Amer) 13 Est GFR (Non-Af Amer) 11 Random Glucose 113 H Calcium 8.6 Total Bilirubin 0.5 AST 22 ALT 27 Alkaline Phosphatase 57 Troponin I 0.0310 Total Protein 6.2 L Albumin 3.7 Globulin 2.5 Albumin/Globulin Ratio 1.5 Influenza Typ A,B (EIA) Negative for flu a/b Assessment & Plan - Assessment and Plan (Free Text) Assessment: 83 yo F with pmhx MM, DMII, HLD, HTN, DM with worsening cough with yellow sputum, wheezing and rales b/l on auscultation, currently afebrile with mild leukocytosis with left shift, r/o PNA, COPD vs CHF Plan: Worsening Cough R/O PNA vs COPD vs CHF -Chest xray: mild pulmonary venous congestion, well inflated and clear, no acute findings - EKG: - WBC: 13.2, mild left shift - CT chest w/o contrast - f/u - Atypicals - legionella, strept, Mycoplasma IgG - Previous Echo 12/27/16 - Severe pulmonary hypertension - Echo ordered - f/u Meds: - Duonebs rQ6 MARIBETH - Mucomyst rQ8H MARIBETH - Rocephin 1gm IVPB BID - Azythromycin 500mg IVPB QDaily - Solumedrol 40mg IV BID Consult dr Mai - help is appreciated ESRD on HD MWF - Dr Bill - nephro consult - help is appreciated, patient to have HD tomorrow as she is MWF sessions - Continue home meds Ferous sulfate and calcium acetate Multiple myeloma - Heme/Onc Dr Martinez consult - help is appreciated - Patient is getting unspecified IV doses 3x a month (weekly), 1 week he does not receive - continue to f/u am labs HTN - continue checking vitals - Continue ty emed lopressor 25mg PO BID DMII - ISS high dose - hold glipizide for now - accuchecks ACHS - hypoglycemia protocol - f/u HbA1c Hypothyroidism - continue home med levothyroxine 150mcg PO QD - f/u TSH, T4 HLD - Continue home crestor 5mg PO QD - Lipid panel - f/u PPX DVT: lovenox 40mg SC QD, SCDs GI: protonix 40mg IVP QD HHD, low fat/low cholesterol, 2gm, low CHO tylenol q6 PRN for pain f/u am labs Plan discussed with Dr Wanda Wilder, PGY-1 - Date & Time Date: 04/14/18 Time: 12:00 <José Antonio Muñoz H - Last Filed: 04/14/18 15:08> Results - Vital Signs Recent Vital Signs: Last Vital Signs Temp 98 F 04/14/18 12:59 Pulse 98 H 04/14/18 12:59 Resp 20 04/14/18 12:59 BP 115/52 L 04/14/18 12:59 Pulse Ox 98 04/14/18 12:59 - Labs Result Diagrams: 04/14/18 09:18 04/14/18 09:18 Labs: Laboratory Results - last 24 hr 04/14/18 04/14/18 04/14/18 09:18 09:18 09:18 WBC 13.2 H RBC 3.82 Hgb 11.8 Hct 35.9 MCV 94.1 MCH 31.0 MCHC 32.9 L RDW 14.1 Plt Count 165 MPV 11.0 Neut % (Auto) 84.2 H Lymph % (Auto) 6.8 L [place] % (Auto) 8.1 Eos % (Auto) 0.6 Baso % (Auto) 0.3 Neut # (Auto) 11.1 H Lymph # (Auto) 0.9 L [place] # (Auto) 1.1 H Eos # (Auto) 0.1 Baso # (Auto) 0.0 Neutrophils % (Manual) 87 H Lymphocytes % (Manual) 6 L Monocytes % (Manual) 7 Platelet Estimate Normal Polychromasia Slight Hypochromasia (manual) Slight Anisocytosis (manual) Slight Sodium 137 Potassium 3.7 Chloride 98 Carbon Dioxide 31 H Anion Gap 13 BUN 57 H Creatinine 3.9 H Est GFR ( Amer) 13 Est GFR (Non-Af Amer) 11 Random Glucose 113 H Calcium 8.6 Total Bilirubin 0.5 AST 22 ALT 27 Alkaline Phosphatase 57 Troponin I 0.0310 Total Protein 6.2 L Albumin 3.7 Globulin 2.5 Albumin/Globulin Ratio 1.5 Influenza Typ A,B (EIA) Negative for flu a/b Attending/Attestation - Attestation I have personally seen and examined this patient.: Yes I have fully participated in the care of the patient.: Yes I have reviewed all pertinent clinical information: Yes Notes (Text): 04/14/18 15:02 Medical attending: Patient was seen and examined by me. Agree with the above note by the resident The patient was with family members at bedside as well She reports a lot of thick mucus production which we will get a sputum culture Also blood culture were already drawn in the ER as well Review of the CXRAY did not suggest a pleural effusion or infiltrate - however does have some congestion. There appears to be a history of PHTN as well on a previous echo 2 years ago. 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
[2018-04-14] MEDS ORDERED: Glucagon Recombinant 1 mg Inj IM PRN (13:20)
[2018-04-14] MEDS ORDERED: Dextrose 50% SYRINGE Inj (50 ml) IV PRN (13:20)
[2018-04-14] MEDS: Albuterol-Ipratrop 3 mg / 0.5 (3 ml) UD INH SCH ×3 (13:40→20:24)
[2018-04-14] MEDS: Azithromycin 500 MG in Sodium Chloride 0.9% 250 ML IVPB SCH (13:58)
--- NOTE | 2018-04-14 15:32 | CT ---
Date of service: 04/14/2018 PROCEDURE: CT Chest without contrast HISTORY: worsening productive cough COMPARISON: CT chest dated 12/31/2016 TECHNIQUE: Contiguous axial images were obtained through the chest without intravenous contrast enhancement. Sagittal and coronal reconstructions were performed. Radiation dose: Total exam DLP = 692.89 mGy-cm. This CT exam was performed using one or more of the following dose reduction techniques: Automated exposure control, adjustment of the mA and/or kV according to patient size, and/or use of iterative reconstruction technique. FINDINGS: LUNGS: Mild air trapping. No pulmonary mass, suspicious nodule or focal consolidation. Visualized airway clear MEDIASTINUM: Unremarkable thoracic aorta. No aneurysm. Cardiomegaly. Coronary arterial and valvular calcifications. Heavy mitral annular calcification. Main pulmonary artery unremarkable. No vascular congestion. No lymphadenopathy. Left internal jugular access chest port. Aortic atherosclerotic calcification. PLEURA: No pleural fluid. No pneumothorax. BONES: Old bilateral rib fractures. Stable osseous heterogeneity and lucencies. Stable expansile right L2 transverse process. No destructive lesion. UPPER ABDOMEN: Cholelithiasis without gallbladder wall thickening or pericholecystic fluid. Small hiatal hernia. OTHER FINDINGS: None. IMPRESSION: Mild air trapping. No pulmonary mass, suspicious nodule or focal consolidation. Cholelithiasis without CT evidence for acute cholecystitis. Grossly stable diffuse lytic bony lesions. Additional stable findings as above.
[2018-04-14] MEDS ORDERED: Aritificial Tears (15ml) OU PRN ×2 (16:50→17:00)
[2018-04-14] MEDS: (Novolin R) Insulin Human Regular 100 units/ml vial SC SCH ×2 (17:30→22:09)
[2018-04-14] MEDS: MethylPREDNISolone 40 mg Vial IVP SCH (18:03)
[2018-04-14] MEDS: Acetylcysteine 20% Inhal Soln (4ml) INH SCH (20:25)
[2018-04-15] MEDS ORDERED: DiphenhydrAMINE 12.5 mg/5 ml LIQ UD (5 ml) PO STA (01:51)
[2018-04-15] MEDS: Levothyroxine 150 MCG TAB PO SCH (06:12)
[2018-04-15 07:19] LABS: HEMOGLOBIN 10.8 g/dL (11.0-16.0); LYMPH # 0.7 K/uL (1.0-4.3); LYMPH % 3.3 % (20.0-40.0); MEAN CELL VOLUME 93.7 fL (81.0-99.0); MEAN CORPUSCULAR HEMOGLOBIN 31.4 pg (27.0-31.0); MEAN CORPUSCULAR HGB CONC 33.5 g/dL (33.0-37.0); MEAN PLATELET VOLUME 11.3 fL (7.2-11.7); MONO # 0.2 K/uL (0.0-0.8); NEUT # 20.3 K/uL (1.8-7.0); NEUT % 95.7 % (50.0-75.0); PLATELET COUNT 171 K/uL (130-400); RBC 3.45 Mil/uL (3.80-5.20); RED CELL DISTRIBUTION WIDTH 14.2 % (11.5-14.5)
[2018-04-15 07:26] LABS: WHITE BLOOD COUNT 21.2 K/uL (4.8-10.8)
[2018-04-15 07:39] LABS: LDL CHOLESTEROL 61 mg/dL (0-129)
[2018-04-15 07:53] LABS: ALB/GLOB RATIO 1.5 (1.0-2.1); ALBUMIN 3.6 g/dL (3.5-5.0); ALT/SGPT 26 U/L (9-52); AST/SGOT 20 U/L (14-36); BLOOD UREA NITROGEN 67 mg/dL (7-17); CALCIUM 8.8 mg/dl (8.6-10.4); GFR NON-AFRICAN AMERICAN 10; HDL CHOLESTEROL 50 mg/dL (30-70)
[2018-04-15] MEDS: Albuterol-Ipratrop 3 mg / 0.5 (3 ml) UD INH SCH ×3 (08:00→20:02)
[2018-04-15] MEDS: Acetylcysteine 20% Inhal Soln (4ml) INH SCH ×3 (08:00→20:02)
[2018-04-15 08:12] LABS: T3 1.01 nmol/L (1.49-2.60)
[2018-04-15] MEDS: (Novolin R) Insulin Human Regular 100 units/ml vial SC SCH ×4 (08:13→21:26)
[2018-04-15 09:00] LABS: BANDS 2 % (0-2); LYMPHOCYTE 3 % (20-40); MONOCYTE 1 % (0-10); NEUTROPHIL 94 % (50-75); PLATELET ESTIMATE NORMAL (NORMAL); TOTAL CELLS COUNTED 100
--- NOTE | 2018-04-15 09:02 | CP.PCM.PN ---
<Shaquille Wilder - Last Filed: 04/15/18 17:09> Subjective - Date & Time of Evaluation Date of Evaluation: 04/15/18 Time of Evaluation: 08:00 - Subjective Subjective: PGY-[address] Moscoso service Patient is seen and examined at bedside. Patient states his coughing continues but has gotten slightly better. Patient continues to have mucus production of a yellowish/green color. Patient denies shortness of breath, chest pain or palpitations. Patient admits to haveing pain/soreness on lower part of abdomen, patient believes is from coughing. Patient has eye itchiness, but does not have any discharge. Patient denies any fever, chills, abdominal pain, nausea, vomiting, diarrhea, constipation, leg swelling or pain or urinary symptoms. Objective - Vital Signs/Intake and Output Vital Signs (last 24 hours): Temp Pulse Resp BP Pulse Ox 97.2 F L 72 20 116/69 96 04/15/18 07:00 04/15/18 07:00 04/15/18 07:00 04/15/18 07:00 04/15/18 07:00 Intake and Output: 04/15/18 04/15/18 06:59 18:59 Intake Total 200 Balance 200 - Medications Medications: Current Medications Acetaminophen (Tylenol 325mg Tab) 650 mg PO Q6 PRN PRN Reason: Pain, severe (8-10) Acetylcysteine (Acetylcysteine 20%) 4 ml INH RQ6 [facility] Last Admin: 04/14/18 20:25 Dose: 4 ml Albuterol/Ipratropium (Duoneb 3 Mg/0.5 Mg (3 Ml) Ud) 3 ml INH RQ6 [facility] Last Admin: 04/14/18 20:24 Dose: 3 ml Artificial Tears (Artificial Tears) 0 ml OU Q8H PRN PRN Reason: Itchiness eye Last Admin: 04/14/18 19:10 Dose: 1 drop Calcium Acetate (Phoslo) 667 mg PO BIDCC [facility] Last Admin: 04/15/18 08:13 Dose: 667 mg Dextrose (Dextrose 50% Inj) 0 ml IV STAT PRN; Protocol PRN Reason: Hypoglycemia Protocol Dextrose (Glutose 15) 0 gm PO ONCE PRN; Protocol PRN Reason: Hypoglycemia Protocol Docusate Sodium (Colace) 100 mg PO TID [facility] Last Admin: 04/14/18 18:03 Dose: 100 mg Enoxaparin Sodium (Lovenox) 40 mg SC DAILY [facility] Ferrous Sulfate (Feosol) 325 mg PO DAILY [facility] Glucagon (Glucagen Diagnostic Kit) 0 mg IM STAT PRN; Protocol PRN Reason: Hypoglycemia Protocol Ceftriaxone Sodium 1 gm/ (Sodium Chloride) 100 mls @ 100 mls/hr IVPB Q12H [facility]; Protocol Last Admin: 04/15/18 01:35 Dose: 100 mls/hr Azithromycin 500 mg/ Sodium (Chloride) 250 mls @ 250 mls/hr IVPB Q24H [facility]; Protocol Last Admin: 04/14/18 13:58 Dose: 250 mls/hr Dextrose (Dextrose 5% In Water 1000 Ml) 1,000 mls @ 0 mls/hr IV .Q0M PRN; Protocol PRN Reason: Hypoglycemia Protocol Insulin Human Regular (Novolin R) 0 unit SC ACHS [facility]; Protocol Last Admin: 04/15/18 08:13 Dose: 6 units Levothyroxine Sodium (Synthroid) 150 mcg PO DAILY@0630 [facility] Last Admin: 04/15/18 06:12 Dose: 150 mcg Methylprednisolone (Solu-Medrol) 40 mg IVP BID [facility] Last Admin: 04/14/18 18:03 Dose: 40 mg Metoprolol Tartrate (Lopressor) 25 mg PO BID [facility] Last Admin: 04/14/18 18:03 Dose: 25 mg Pantoprazole Sodium (Protonix Inj) 40 mg IVP DAILY [facility] Rosuvastatin Calcium (Crestor) 5 mg PO HS [facility] Last Admin: 04/14/18 22:26 Dose: 5 mg - Labs Labs: 04/15/18 07:05 04/15/18 07:05 - Constitutional Appears: Well, Non-toxic, No Acute Distress - Head Exam Head Exam: ATRAUMATIC, NORMAL INSPECTION, NORMOCEPHALIC - Eye Exam Eye Exam: EOMI, Normal appearance Additional comments: erythema surroundings eyes b/l - ENT Exam ENT Exam: Mucous Membranes Moist, Normal Exam Additional comments: mild erythema base of palate - Neck Exam Neck Exam: Full ROM, Normal Inspection - Respiratory Exam Respiratory Exam: Rhonchi, NORMAL BREATHING PATTERN. absent: Accessory Muscle Use, Wheezes, Respiratory Distress Additional comments: crackles on lower lung/ bases b/l - Cardiovascular Exam Cardiovascular Exam: REGULAR RHYTHM, +S1, +S2 - GI/Abdominal Exam GI & Abdominal Exam: Distended, Soft, Normal Bowel Sounds. absent: Firm, Guarding, Tenderness - Extremities Exam Extremities Exam: Full ROM, Normal Inspection. absent: Calf Tenderness, Pedal Edema, Tenderness - Back Exam Back Exam: Full ROM - Neurological Exam Neurological Exam: Alert, Awake, Oriented x3 - Psychiatric Exam Psychiatric exam: Normal Affect, Normal Mood - Skin Skin Exam: Dry Additional comments: right UE echymosis on anterior side of the arm, dry blood near the IV saline lock on right arm Multiple old ecchymosis on bilateral arm and forearm. Assessment and Plan - Assessment and Plan (Free Text) Plan: Worsening Cough R/O PNA vs COPD vs CHF exarc -Chest xray: mild pulmonary venous congestion, well inflated and clear, no acute findings - EKG: NSR - WBC: 21 this am, neutrophils 95.7 - Patient is afebrile - CT chest w/o contrast - Mild air trapping, no pulmonary mass, suspicious nodule or focal consolidation - flu - negative - Atypicals - legionella - negative - strept - f/u - Mycoplasma IgG - negative - Previous Echo 12/27/16 - Severe pulmonary hypertension - Echo ordered - f/u - Blood culture - no growth after 24 hours - Sputum culture - few gram positive, few gram negative on preliminary report/ gram stain - f/u culture report Meds: - Duonebs rQ6 [facility] - Mucomyst rQ8H [facility] - Rocephin 1gm IVPB BID - Azythromycin 500mg IVPB QDaily - Solumedrol 40mg IV BID - Robitussin [address] Mai - help is appreciated ESRD on HD MWF - Dr Bill. Dr Sotelo - nephro consult - Patient to go to HD today, consent in chart, will follow up recs, am labs tomorrow - Continue home meds Ferous sulfate and calcium acetate Multiple myeloma - Heme/Onc Dr Martinez consult - help is appreciated - will follow recs - Patient gets Velcade IV 1x a week for 3 weeks a month - continue acyclovir 200mg PO BID - continue to f/u am labs HTN - continue checking vitals - Continue home med lopressor 25mg PO BID DMII - ISS high dose - hold glipizide for now - accuchecks ACHS - Lantus 10 U Qdaily - one dose in the am - hypoglycemia protocol - HbA1c - 6.8 Hypothyroidism - levothyroxine 150mcg PO QD - TSH - 0.02 - free T4- 2.70 HLD - crestor 5mg PO QD - Lipid panel - within normal limits PPX DVT: SCDs, Heparin 5000 U Q12H GI: protonix 40mg IVP QD HHD, low fat/low cholesterol, 2gm, low CHO tylenol q6 PRN for pain f/u am labs - artificial tears for itchiness in eyes Plan discussed with Dr Blanka Wilder <Miranda Moscoso - Last Filed: 04/16/18 10:37> Objective - Vital Signs/Intake and Output Vital Signs (last 24 hours): Temp Pulse Resp BP Pulse Ox 98.5 F 95 H 20 136/68 95 04/16/18 07:00 04/16/18 07:00 04/16/18 07:00 04/16/18 10:13 04/16/18 07:40 Intake and Output: 04/16/18 04/16/18 06:59 18:59 Intake Total 150 Balance 150 - Medications Medications: Current Medications Acetaminophen (Tylenol 325mg Tab) 650 mg PO Q6 PRN PRN Reason: Pain, severe (8-10) Acetylcysteine (Acetylcysteine 20%) 4 ml INH RQ6 [facility] Last Admin: 04/16/18 09:14 Dose: 4 ml Albuterol/Ipratropium (Duoneb 3 Mg/0.5 Mg (3 Ml) Ud) 3 ml INH RQ6 [facility] Last Admin: 04/16/18 09:14 Dose: 3 ml Artificial Tears (Artificial Tears) 0 ml OU Q8H PRN PRN Reason: Itchiness eye Last Admin: 04/14/18 19:10 Dose: 1 drop Calcium Acetate (Phoslo) 667 mg PO BIDCC [facility] Last Admin: 04/16/18 08:11 Dose: 667 mg Dextrose (Dextrose 50% Inj) 0 ml IV STAT PRN; Protocol PRN Reason: Hypoglycemia Protocol Dextrose (Glutose 15) 0 gm PO ONCE PRN; Protocol PRN Reason: Hypoglycemia Protocol Docusate Sodium (Colace) 100 mg PO TID [facility] Last Admin: 04/16/18 10:13 Dose: 100 mg Ferrous Sulfate (Feosol) 325 mg PO DAILY [facility] Last Admin: 04/16/18 10:13 Dose: 325 mg Glucagon (Glucagen Diagnostic Kit) 0 mg IM STAT PRN; Protocol PRN Reason: Hypoglycemia Protocol Guaifenesin (Robitussin) 100 mg PO Q4H PRN PRN Reason: Cough Last Admin: 04/16/18 10:12 Dose: 100 mg Heparin Sodium (Porcine) (Heparin) 5,000 units SC Q12 [facility] Last Admin: 04/16/18 10:13 Dose: 5,000 units Ceftriaxone Sodium 1 gm/ (Sodium Chloride) 100 mls @ 100 mls/hr IVPB Q12H [facility]; Protocol Last Admin: 04/16/18 01:33 Dose: 100 mls/hr Azithromycin 500 mg/ Sodium (Chloride) 250 mls @ 250 mls/hr IVPB Q24H [facility]; Protocol Last Admin: 04/15/18 12:30 Dose: 250 mls/hr Dextrose (Dextrose 5% In Water 1000 Ml) 1,000 mls @ 0 mls/hr IV .Q0M PRN; Protocol PRN Reason: Hypoglycemia Protocol Insulin Glargine (Lantus) 10 unit SC DAILY [facility] Last Admin: 04/16/18 10:15 Dose: 10 units Insulin Human Regular (Novolin R) 0 unit SC ACHS [facility]; Protocol Last Admin: 04/16/18 08:12 Dose: 6 units Levothyroxine Sodium (Synthroid) 150 mcg PO DAILY@0630 [facility] Last Admin: 04/16/18 05:58 Dose: 150 mcg Methylprednisolone (Solu-Medrol) 40 mg IVP BID [facility] Last Admin: 04/16/18 10:13 Dose: 40 mg Metoprolol Tartrate (Lopressor) 25 mg PO BID [facility] Last Admin: 04/16/18 10:13 Dose: 25 mg Pantoprazole Sodium (Protonix Inj) 40 mg IVP DAILY [facility] Last Admin: 04/16/18 10:13 Dose: 40 mg Rosuvastatin Calcium (Crestor) 5 mg PO HS [facility] Last Admin: 04/15/18 21:23 Dose: 5 mg - Labs Labs: 04/16/18 06:46 04/16/18 06:46 PT 12.4 SECONDS (9.7-12.2) H 04/15/18 10:51 INR 1.1 04/15/18 10:51 APTT 28 SECONDS (21-34) 04/15/18 10:51 Attending/Attestation - Attestation I have personally seen and examined this patient.: Yes I have fully participated in the care of the patient.: Yes I have reviewed all pertinent clinical information, including history, physical exam and plan: Yes Notes (Text): seen and examined .Patient was complaining of cough and not feeling well Has right lower lobe rales. Patient was coughing with mild sob CT chest without infiltrate continue solumedrol, zithromax and ceftriaxone. spoke to Dr Martinez oncologist.Patient's wbc is high before admission as per Dr Martinez we will follow Dr Mai's recommendation followed by platform beater. we will see how she is doing tomorrow
[2018-04-15] MEDS ORDERED: Enoxaparin 40 mg Syringe SC SCH (10:00)
[2018-04-15] MEDS ORDERED: Azithromycin 500 MG in Sodium Chloride 0.9% 250 ML IVPB SCH (10:00)
[2018-04-15] MEDS: MethylPREDNISolone 40 mg Vial IVP SCH ×2 (10:26→18:40)
[2018-04-15] MEDS: (Lantus) Insulin Glargine, Recombinant SC SCH (10:32)
[2018-04-15 11:05] LABS: INR 1.1; PROTHROMBIN TIME 12.4 SECONDS (9.7-12.2)
--- NOTE | 2018-04-15 11:43 | CARD ---
APPROVED REPORT Date of service: 04/15/2018 EXAM: Two-dimensional and M-mode echocardiogram with Doppler and color Doppler. INDICATION Abnormal EKG/Arrhythmia Atrial Fibrillation Congestive Heart Failure COPD Palpitations anemia, cough RISK FACTORS Hypertension 2D DIMENSIONS IVSd1.0 (0.7-1.1cm)LVDd4.2 (3.9-5.9cm) LVOT Diameter2.0 (1.8-2.4cm)PWd1.1 (0.7-1.1cm) LA [id number] (18-58mL)LVDs2.4 (2.5-4.0cm) FS (%) 42.5 %LVEF (%)74.0 (>50%) LVEF ([place])73.28 % M-Mode DIMENSIONS Left Atrium (MM)4.11 (2.5-4.0cm)IVSd0.81 (0.7-1.1cm) Aortic Root3.07 (2.2-3.7cm)LVDd5.38 (4.0-5.6cm) Aortic Cusp Exc.1.94 (1.5-2.0cm)PWd0.73 (0.7-1.1cm) FS (%) 41 %LVDs3.19 (2.0-3.8cm) LVEF (%)71 (>50%) Mitral Valve MV E Crducumt555.5cm/sMV E Peak Gr.21mmHgMV A Kfwjrkmr865.0cm/s MV E Mean Gr.10mmHgMV BME63puN/A ratio0.9 MVA (PHT)2.42hk9FJBO621.42 cm/s TDI Lateral E' Peak V6.03cm/sMedial E' Peak V6.48cm/sE/Lateral E'27.6 E/Medial E'25.7 Tricuspid Valve TR Peak Htcblaaj441fa/sTR Peak Gr.87uyVwGACQ34ueFl LEFT VENTRICLE The left ventricle is normal size. There is mild to moderate concentric left ventricular hypertrophy. The left ventricle is hyperdynamic. There is normal LV segmental wall motion. Transmitral Doppler flow pattern is Grade I-abnormal relaxation pattern. RIGHT VENTRICLE The right ventricle is normal size. There is normal right ventricular wall thickness. The right ventricular systolic function is normal. ATRIA The left atrium is borderline dilated. The right atrium is borderline dilated. AORTIC VALVE The aortic valve is mildly sclerotic. There is trace aortic regurgitation. There is no aortic valvular stenosis. MITRAL VALVE The mitral valve is calcified Mitral regurgitation is mild to moderate. TRICUSPID VALVE There is mild tricuspid regurgitation. There is moderate pulmonary hypertension. PULMONIC VALVE There is mild pulmonic valvular regurgitation. GREAT VESSELS The aortic root is normal in size. The IVC is normal in size and collapses >50% with inspiration. <Conclusion> There is mild to moderate concentric left ventricular hypertrophy. The left ventricle is hyperdynamic. There is normal LV segmental wall motion. Transmitral Doppler flow pattern is Grade I-abnormal relaxation pattern. Mitral regurgitation is mild to moderate. There is mild tricuspid regurgitation. There is moderate pulmonary hypertension.
--- NOTE | 2018-04-15 11:57 | CARD ---
APPROVED REPORT Date of service: 04/14/2018 EKG Measurement Heart [id number] 130P-9 [id number] <Conclusion> Normal sinus rhythm Normal ECG
[2018-04-15] MEDS: Azithromycin 500 MG in Sodium Chloride 0.9% 250 ML IVPB SCH (12:30)
--- NOTE | 2018-04-15 14:17 | CP.PCM.CON ---
History of Present Illness - History of Present Illness History of Present Illness: Patient is 83 year old [place] Female with pmhx of multiple myeloma (no longer on chemotherapy, last 03/03), ESRD MWF, HTN, hypothyroidism, HLD, DMII that came to ER today for worsening cough with yellowish sputum that started about 1 1/2 weeks ago. Patient had one episode similar to this last year and was hospitalized for a week. Patient says cough comes and goes, gets worse at nightime. Patient visited her PMD Dr Winkler recently, who gave her Zpack and cough syrup promethazine, but patient states it did not help. Patient feels as if something is clogged in her throat, believes it is phlegm. Patient admits to palpitations that come and go, and subjective fevers in previous days, but not currently. Patient states that she had sick contact with other patient that were coughing at her dialysis center. Patient denies any recent sickness or travel. Patient has left lower quadrant pain and headaches when coughing. Patient denies fevers, chills, sore throat, abdominal pain, nausea, vomiting, diarrhea or constipation, leg swelling or pain or urinary complaints. 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, lives with brother and niece MEds: Acyclovir, calcium acetate, famotidine 20 mg PO QD , ferrous sulfate, Glipizide 10mg PO QD, levothyroxine 75mcg PO QD, metoprolol 25 mg PO QD, rosuvastatin 5mg PO QD Past Patient History - Infectious Disease Hx of Infectious Diseases: None - Past Medical History & Family History Past Medical History?: Yes - Past Social History Smoking Status: Former Smoker - CARDIAC Hx Atrial Fibrillation: Yes Hx Cardia Arrhythmia: Yes Hx Congestive Heart Failure: Yes Hx Hypercholesterolemia: Yes Hx Hypertension: Yes - NEUROLOGICAL Hx Neurological Disorder: No - HEENT Hx HEENT Problems: Yes Hx Cataracts: Yes (bilateral) - RENAL Hx Chronic Kidney Disease: Yes - ENDOCRINE/METABOLIC Hx Hypothyroidism: Yes - HEMATOLOGICAL/ONCOLOGICAL Hx Anemia: Yes - INTEGUMENTARY Hx Dermatological Problems: No - MUSCULOSKELETAL/RHEUMATOLOGICAL Hx Arthritis: Yes - GASTROINTESTINAL Hx Gastrointestinal Disorders: Yes Hx Hemorrhoids: Yes - GENITOURINARY/GYNECOLOGICAL Hx Genitourinary Disorders: No - PSYCHIATRIC Hx Substance Use: No - SURGICAL HISTORY Hx Surgeries: Yes Hx Arteriovenous Shunt: Yes (LEFT ARM AV ,permacath) Hx Vascular Access Device: Yes (perma cath elaina cath) - ANESTHESIA Hx Anesthesia: Yes Hx Anesthesia Reactions: No Hx Malignant Hyperthermia: No Meds Allergies/Adverse Reactions: Allergies Allergy/AdvReac Type Severity Reaction Status Date / Time No Known Allergies Allergy Verified 04/14/18 08:40 - Medications Medications: Current Medications Acetaminophen (Tylenol 325mg Tab) 650 mg PO Q6 PRN PRN Reason: Pain, severe (8-10) Acetylcysteine (Acetylcysteine 20%) 4 ml INH RQ6 [facility] Last Admin: 04/14/18 20:25 Dose: 4 ml Acyclovir (Zovirax) 200 mg PO Q12H [facility]; Protocol Last Admin: 04/15/18 10:25 Dose: 200 mg Albuterol/Ipratropium (Duoneb 3 Mg/0.5 Mg (3 Ml) Ud) 3 ml INH RQ6 [facility] Last Admin: 04/14/18 20:24 Dose: 3 ml Artificial Tears (Artificial Tears) 0 ml OU Q8H PRN PRN Reason: Itchiness eye Last Admin: 04/14/18 19:10 Dose: 1 drop Calcium Acetate (Phoslo) 667 mg PO BIDCC [facility] Last Admin: 04/15/18 08:13 Dose: 667 mg Dextrose (Dextrose 50% Inj) 0 ml IV STAT PRN; Protocol PRN Reason: Hypoglycemia Protocol Dextrose (Glutose 15) 0 gm PO ONCE PRN; Protocol PRN Reason: Hypoglycemia Protocol Docusate Sodium (Colace) 100 mg PO TID [facility] Last Admin: 04/15/18 13:22 Dose: 100 mg Enoxaparin Sodium (Lovenox) 40 mg SC DAILY [facility] Last Admin: 04/15/18 10:26 Dose: 40 mg Ferrous Sulfate (Feosol) 325 mg PO DAILY [facility] Last Admin: 04/15/18 10:26 Dose: 325 mg Glucagon (Glucagen Diagnostic Kit) 0 mg IM STAT PRN; Protocol PRN Reason: Hypoglycemia Protocol Guaifenesin (Robitussin) 100 mg PO Q4H PRN PRN Reason: Cough Ceftriaxone Sodium 1 gm/ (Sodium Chloride) 100 mls @ 100 mls/hr IVPB Q12H [facility]; Protocol Last Admin: 04/15/18 13:22 Dose: 100 mls/hr Azithromycin 500 mg/ Sodium (Chloride) 250 mls @ 250 mls/hr IVPB Q24H [facility]; Protocol Last Admin: 04/15/18 12:30 Dose: 250 mls/hr Dextrose (Dextrose 5% In Water 1000 Ml) 1,000 mls @ 0 mls/hr IV .Q0M PRN; Protocol PRN Reason: Hypoglycemia Protocol Insulin Glargine (Lantus) 10 unit SC DAILY [facility] Last Admin: 04/15/18 10:32 Dose: 10 units Insulin Human Regular (Novolin R) 0 unit SC ACHS [facility]; Protocol Last Admin: 04/15/18 12:31 Dose: 6 units Levothyroxine Sodium (Synthroid) 150 mcg PO DAILY@0630 [facility] Last Admin: 04/15/18 06:12 Dose: 150 mcg Methylprednisolone (Solu-Medrol) 40 mg IVP BID [facility] Last Admin: 04/15/18 10:26 Dose: 40 mg Metoprolol Tartrate (Lopressor) 25 mg PO BID [facility] Last Admin: 04/15/18 10:26 Dose: 25 mg Pantoprazole Sodium (Protonix Inj) 40 mg IVP DAILY [facility] Last Admin: 04/15/18 10:25 Dose: 40 mg Rosuvastatin Calcium (Crestor) 5 mg PO HS [facility] Last Admin: 04/14/18 22:26 Dose: 5 mg Physical Exam - Constitutional Appears: Non-toxic, No Acute Distress, Chronically Ill - Head Exam Head Exam: NORMAL INSPECTION, NORMOCEPHALIC - Eye Exam Eye Exam: Normal appearance, PERRL - ENT Exam ENT Exam: Mucous Membranes Moist, Normal Exam - Neck Exam Neck exam: Positive for: Normal Inspection - Respiratory Exam Respiratory Exam: Rhonchi, NORMAL BREATHING PATTERN. absent: Clear to Auscultation Bilateral - Cardiovascular Exam Cardiovascular Exam: REGULAR RHYTHM - GI/Abdominal Exam GI & Abdominal Exam: Normal Bowel Sounds, Soft - Extremities Exam Extremities exam: Positive for: normal inspection - Neurological Exam Neurological exam: Alert, Oriented x3 - Psychiatric Exam Psychiatric exam: Normal Affect, Normal Mood - Skin Skin Exam: Dry, Intact Results - Vital Signs Recent Vital Signs: Last Vital Signs Temp 97.2 F L 04/15/18 07:00 Pulse 72 04/15/18 07:00 Resp 20 04/15/18 07:00 BP 130/64 04/15/18 10:26 Pulse Ox 96 04/15/18 07:00 - Labs Result Diagrams: 04/15/18 07:05 04/15/18 07:05 Labs: Laboratory Results - last 24 hr 04/14/18 04/14/18 04/14/18 16:47 16:49 19:37 WBC RBC Hgb Hct MCV MCH MCHC RDW Plt Count MPV Neut % (Auto) Lymph % (Auto) Giles % (Auto) Eos % (Auto) Baso % (Auto) Neut # (Auto) Lymph # (Auto) Giles # (Auto) Eos # (Auto) Baso # (Auto) Neutrophils % (Manual) Band Neutrophils % Lymphocytes % (Manual) Monocytes % (Manual) Platelet Estimate RBC Morphology PT INR APTT Sodium Potassium Chloride Carbon Dioxide Anion Gap BUN Creatinine Est GFR ( Amer) Est GFR (Non-Af Amer) POC Glucose (mg/dL) 463 H* 484 H* Random Glucose Hemoglobin A1c Calcium Total Bilirubin AST ALT Alkaline Phosphatase Total Protein Albumin Globulin Albumin/Globulin Ratio Triglycerides Cholesterol LDL Cholesterol Direct HDL Cholesterol Free T4 Total T3 TSH 3rd Generation Ur L.pneumophila Ag Negative Mycoplasma pneumon IgM 04/14/18 04/14/18 04/15/18 19:37 21:22 02:11 WBC RBC Hgb Hct MCV MCH MCHC RDW Plt Count MPV Neut % (Auto) Lymph % (Auto) Giles % (Auto) Eos % (Auto) Baso % (Auto) Neut # (Auto) Lymph # (Auto) Giles # (Auto) Eos # (Auto) Baso # (Auto) Neutrophils % (Manual) Band Neutrophils % Lymphocytes % (Manual) Monocytes % (Manual) Platelet Estimate RBC Morphology PT INR APTT Sodium Potassium Chloride Carbon Dioxide Anion Gap BUN Creatinine Est GFR ( Amer) Est GFR (Non-Af Amer) POC Glucose (mg/dL) 276 H 204 H Random Glucose Hemoglobin A1c Calcium Total Bilirubin AST ALT Alkaline Phosphatase Total Protein Albumin Globulin Albumin/Globulin Ratio Triglycerides Cholesterol LDL Cholesterol Direct HDL Cholesterol Free T4 Total T3 TSH 3rd Generation Ur L.pneumophila Ag Mycoplasma pneumon IgM Negative 04/15/18 04/15/18 04/15/18 06:18 07:05 07:05 WBC 21.2 H D RBC 3.45 L Hgb 10.8 L Hct 32.3 L MCV 93.7 MCH 31.4 H MCHC 33.5 RDW 14.2 Plt Count 171 MPV 11.3 Neut % (Auto) 95.7 H Lymph % (Auto) 3.3 L Giles % (Auto) 1.0 Eos % (Auto) 0.0 Baso % (Auto) 0.0 Neut # (Auto) 20.3 H Lymph # (Auto) 0.7 L Giles # (Auto) 0.2 Eos # (Auto) 0.0 Baso # (Auto) 0.0 Neutrophils % (Manual) 94 H Band Neutrophils % 2 Lymphocytes % (Manual) 3 L Monocytes % (Manual) 1 Platelet Estimate Normal RBC Morphology Normal PT INR APTT Sodium 133 Potassium 3.6 Chloride 95 L Carbon Dioxide 24 Anion Gap 18 BUN 67 H Creatinine 4.4 H Est GFR ( Amer) 12 Est GFR (Non-Af Amer) 10 POC Glucose (mg/dL) 259 H Random Glucose 249 H D Hemoglobin A1c Calcium 8.8 Total Bilirubin 0.3 AST 20 ALT 26 Alkaline Phosphatase 59 Total Protein 6.0 L Albumin 3.6 Globulin 2.4 Albumin/Globulin Ratio 1.5 Triglycerides 74 D Cholesterol 116 LDL Cholesterol Direct 61 HDL Cholesterol 50 Free T4 Total T3 1.01 L TSH 3rd Generation < 0.02 L Ur L.pneumophila Ag Mycoplasma pneumon IgM 04/15/18 04/15/18 04/15/18 07:05 07:05 10:51 WBC RBC Hgb Hct MCV MCH MCHC RDW Plt Count MPV Neut % (Auto) Lymph % (Auto) Giles % (Auto) Eos % (Auto) Baso % (Auto) Neut # (Auto) Lymph # (Auto) Giles # (Auto) Eos # (Auto) Baso # (Auto) Neutrophils % (Manual) Band Neutrophils % Lymphocytes % (Manual) Monocytes % (Manual) Platelet Estimate RBC Morphology PT 12.4 H INR 1.1 APTT 28 Sodium Potassium Chloride Carbon Dioxide Anion Gap BUN Creatinine Est GFR ( Amer) Est GFR (Non-Af Amer) POC Glucose (mg/dL) Random Glucose Hemoglobin A1c 6.8 H Calcium Total Bilirubin AST ALT Alkaline Phosphatase Total Protein Albumin Globulin Albumin/Globulin Ratio Triglycerides Cholesterol LDL Cholesterol Direct HDL Cholesterol Free T4 2.76 H Total T3 TSH 3rd Generation Ur L.pneumophila Ag Mycoplasma pneumon IgM 04/15/18 12:17 WBC RBC Hgb Hct MCV MCH MCHC RDW Plt Count MPV Neut % (Auto) Lymph % (Auto) Giles % (Auto) Eos % (Auto) Baso % (Auto) Neut # (Auto) Lymph # (Auto) Giles # (Auto) Eos # (Auto) Baso # (Auto) Neutrophils % (Manual) Band Neutrophils % Lymphocytes % (Manual) Monocytes % (Manual) Platelet Estimate RBC Morphology PT INR APTT Sodium Potassium Chloride Carbon Dioxide Anion Gap BUN Creatinine Est GFR ( Amer) Est GFR (Non-Af Amer) POC Glucose (mg/dL) 283 H Random Glucose Hemoglobin A1c Calcium Total Bilirubin AST ALT Alkaline Phosphatase Total Protein Albumin Globulin Albumin/Globulin Ratio Triglycerides Cholesterol LDL Cholesterol Direct HDL Cholesterol Free T4 Total T3 TSH 3rd Generation Ur L.pneumophila Ag Mycoplasma pneumon IgM Assessment & Plan (1) ESRD (end stage renal disease) Status: Acute - Assessment and Plan (Free Text) Assessment: esrd on hd cough hx of multiple myeloma chf pulmonary htn plan for hd today cultures pending, empiric antibiotics hold off rani until onc consult, active myeloma bp acceptable
[2018-04-15 14:44] LABS: SQUAMOUS EPITHIAL < 1 /hpf (0-5); URINE BACTERIA RARE (<OCC); URINE BILIRUBIN NEGATIVE (NEGATIVE); URINE BLOOD NEGATIVE (NEGATIVE); URINE CLARITY Hazy (Clear); URINE COLOR Yellow (YELLOW); URINE GLUCOSE (UA) NORMAL (Normal); URINE LEUKOCYTE ESTERASE NEG Leu/uL (Negative); URINE PROTEIN NEGATIVE (NEGATIVE); URINE UROBILINOGEN NORMAL mg/dL (0.2-1.0)
--- NOTE | 2018-04-15 18:26 | CP.PCM.CON ---
Past Patient History - Infectious Disease Hx of Infectious Diseases: None - Past Medical History & Family History Past Medical History?: Yes - Past Social History Smoking Status: Former Smoker - CARDIAC Hx Atrial Fibrillation: Yes Hx Cardia Arrhythmia: Yes Hx Congestive Heart Failure: Yes Hx Hypercholesterolemia: Yes Hx Hypertension: Yes - NEUROLOGICAL Hx Neurological Disorder: No - HEENT Hx HEENT Problems: Yes Hx Cataracts: Yes (bilateral) - RENAL Hx Chronic Kidney Disease: Yes - ENDOCRINE/METABOLIC Hx Hypothyroidism: Yes - HEMATOLOGICAL/ONCOLOGICAL Hx Anemia: Yes - INTEGUMENTARY Hx Dermatological Problems: No - MUSCULOSKELETAL/RHEUMATOLOGICAL Hx Arthritis: Yes - GASTROINTESTINAL Hx Gastrointestinal Disorders: Yes Hx Hemorrhoids: Yes - GENITOURINARY/GYNECOLOGICAL Hx Genitourinary Disorders: No - PSYCHIATRIC Hx Substance Use: No - SURGICAL HISTORY Hx Surgeries: Yes Hx Arteriovenous Shunt: Yes (LEFT ARM AV ,permacath) Hx Vascular Access Device: Yes (perma cath elaina cath) - ANESTHESIA Hx Anesthesia: Yes Hx Anesthesia Reactions: No Hx Malignant Hyperthermia: No Meds Home Medications: Home Medication List Medication Instructions Recorded Confirmed Type Methylprednisolone [Medrol Dose 4 mg PO DAILY #21 mg 04/17/18 Rx Pack (21 tabs)] Acyclovir [Zovirax] 200 mg PO Q12H 30 Days #60 cap 04/19/18 Rx Moxifloxacin [Avelox] 400 mg PO DAILY 5 Days #5 tab 04/19/18 Rx Promethazine DM [Phenergan DM 1 tbs PO Q6H PRN 3 Days ml 04/19/18 Rx Syrup] Allergies/Adverse Reactions: Allergies Allergy/AdvReac Type Severity Reaction Status Date / Time No Known Allergies Allergy Verified 04/14/18 08:40 - Medications Medications: Current Medications Acetaminophen (Tylenol 325mg Tab) 650 mg PO Q6 PRN PRN Reason: Pain, severe (8-10) Acetylcysteine (Acetylcysteine 20%) 4 ml INH RQ6 [facility] Last Admin: 04/15/18 15:27 Dose: Not Given Acyclovir (Zovirax) 200 mg PO Q12H [facility]; Protocol Last Admin: 04/15/18 10:25 Dose: 200 mg Albuterol/Ipratropium (Duoneb 3 Mg/0.5 Mg (3 Ml) Ud) 3 ml INH RQ6 [facility] Last Admin: 04/15/18 15:27 Dose: Not Given Artificial Tears (Artificial Tears) 0 ml OU Q8H PRN PRN Reason: Itchiness eye Last Admin: 04/14/18 19:10 Dose: 1 drop Calcium Acetate (Phoslo) 667 mg PO BIDCC [facility] Last Admin: 04/15/18 08:13 Dose: 667 mg Dextrose (Dextrose 50% Inj) 0 ml IV STAT PRN; Protocol PRN Reason: Hypoglycemia Protocol Dextrose (Glutose 15) 0 gm PO ONCE PRN; Protocol PRN Reason: Hypoglycemia Protocol Docusate Sodium (Colace) 100 mg PO TID [facility] Last Admin: 04/15/18 13:22 Dose: 100 mg Ferrous Sulfate (Feosol) 325 mg PO DAILY [facility] Last Admin: 04/15/18 10:26 Dose: 325 mg Glucagon (Glucagen Diagnostic Kit) 0 mg IM STAT PRN; Protocol PRN Reason: Hypoglycemia Protocol Guaifenesin (Robitussin) 100 mg PO Q4H PRN PRN Reason: Cough Heparin Sodium (Porcine) (Heparin) 5,000 units SC Q12 [facility] Ceftriaxone Sodium 1 gm/ (Sodium Chloride) 100 mls @ 100 mls/hr IVPB Q12H [facility]; Protocol Last Admin: 04/15/18 13:22 Dose: 100 mls/hr Azithromycin 500 mg/ Sodium (Chloride) 250 mls @ 250 mls/hr IVPB Q24H [facility]; Protocol Last Admin: 04/15/18 12:30 Dose: 250 mls/hr Dextrose (Dextrose 5% In Water 1000 Ml) 1,000 mls @ 0 mls/hr IV .Q0M PRN; Protocol PRN Reason: Hypoglycemia Protocol Insulin Glargine (Lantus) 10 unit SC DAILY [facility] Last Admin: 04/15/18 10:32 Dose: 10 units Insulin Human Regular (Novolin R) 0 unit SC ACHS [facility]; Protocol Last Admin: 04/15/18 12:31 Dose: 6 units Levothyroxine Sodium (Synthroid) 150 mcg PO DAILY@0630 [facility] Last Admin: 04/15/18 06:12 Dose: 150 mcg Methylprednisolone (Solu-Medrol) 40 mg IVP BID [facility] Last Admin: 04/15/18 10:26 Dose: 40 mg Metoprolol Tartrate (Lopressor) 25 mg PO BID [facility] Last Admin: 04/15/18 10:26 Dose: 25 mg Pantoprazole Sodium (Protonix Inj) 40 mg IVP DAILY [facility] Last Admin: 04/15/18 10:25 Dose: 40 mg Rosuvastatin Calcium (Crestor) 5 mg PO HS [facility] Last Admin: 04/14/18 22:26 Dose: 5 mg Physical Exam - Head Exam Head Exam: NORMAL INSPECTION - Eye Exam Eye Exam: Normal appearance - ENT Exam ENT Exam: Mucous Membranes Moist - Respiratory Exam Respiratory Exam: Prolonged Expiratory Phase, Rhonchi, Wheezes - Cardiovascular Exam Cardiovascular Exam: REGULAR RHYTHM, +S1, +S2 - GI/Abdominal Exam GI & Abdominal Exam: Normal Bowel Sounds, Soft - Extremities Exam Extremities exam: Positive for: normal inspection - Neurological Exam Neurological exam: Alert, Oriented x3 Results - Vital Signs Recent Vital Signs: Last Vital Signs Temp 97.7 F 04/15/18 17:35 Pulse 82 04/15/18 17:35 Resp 16 04/15/18 17:35 BP 124/56 L 04/15/18 17:35 Pulse Ox 95 04/15/18 17:35 - Labs Result Diagrams: 04/19/18 06:40 04/19/18 06:40 Labs: Laboratory Results - last 24 hr 04/14/18 04/14/18 04/14/18 16:47 16:49 19:37 WBC RBC Hgb Hct MCV MCH MCHC RDW Plt Count MPV Neut % (Auto) Lymph % (Auto) Meade % (Auto) Eos % (Auto) Baso % (Auto) Neut # (Auto) Lymph # (Auto) Meade # (Auto) Eos # (Auto) Baso # (Auto) Neutrophils % (Manual) Band Neutrophils % Lymphocytes % (Manual) Monocytes % (Manual) Platelet Estimate RBC Morphology PT INR APTT Sodium Potassium Chloride Carbon Dioxide Anion Gap BUN Creatinine Est GFR ( Amer) Est GFR (Non-Af Amer) POC Glucose (mg/dL) 463 H* 484 H* Random Glucose Hemoglobin A1c Calcium Total Bilirubin AST ALT Alkaline Phosphatase Total Protein Albumin Globulin Albumin/Globulin Ratio Triglycerides Cholesterol LDL Cholesterol Direct HDL Cholesterol Free T4 Total T3 TSH 3rd Generation Urine Color Urine Clarity Urine pH Ur Specific Helen Urine Protein Urine Glucose (UA) Urine Ketones Urine Blood Urine Nitrate Urine Bilirubin Urine Urobilinogen Ur Leukocyte Esterase Urine WBC (Auto) Urine RBC (Auto) Ur Squamous Epith Cells Urine Bacteria Ur L.pneumophila Ag Negative Mycoplasma pneumon IgM 04/14/18 04/14/1818 19:37 21:22 02:11 WBC RBC Hgb Hct MCV MCH MCHC RDW Plt Count MPV Neut % (Auto) Lymph % (Auto) Meade % (Auto) Eos % (Auto) Baso % (Auto) Neut # (Auto) Lymph # (Auto) Meade # (Auto) Eos # (Auto) Baso # (Auto) Neutrophils % (Manual) Band Neutrophils % Lymphocytes % (Manual) Monocytes % (Manual) Platelet Estimate RBC Morphology PT INR APTT Sodium Potassium Chloride Carbon Dioxide Anion Gap BUN Creatinine Est GFR ( Amer) Est GFR (Non-Af Amer) POC Glucose (mg/dL) 276 H 204 H Random Glucose Hemoglobin A1c Calcium Total Bilirubin AST ALT Alkaline Phosphatase Total Protein Albumin Globulin Albumin/Globulin Ratio Triglycerides Cholesterol LDL Cholesterol Direct HDL Cholesterol Free T4 Total T3 TSH 3rd Generation Urine Color Urine Clarity Urine pH Ur Specific Helen Urine Protein Urine Glucose (UA) Urine Ketones Urine Blood Urine Nitrate Urine Bilirubin Urine Urobilinogen Ur Leukocyte Esterase Urine WBC (Auto) Urine RBC (Auto) Ur Squamous Epith Cells Urine Bacteria Ur L.pneumophila Ag Mycoplasma pneumon IgM Negative 04/15/18 04/15/18 04/15/18 06:18 07:05 07:05 WBC 21.2 H D RBC 3.45 L Hgb 10.8 L Hct 32.3 L MCV 93.7 MCH 31.4 H MCHC 33.5 RDW 14.2 Plt Count 171 MPV 11.3 Neut % (Auto) 95.7 H Lymph % (Auto) 3.3 L Meade % (Auto) 1.0 Eos % (Auto) 0.0 Baso % (Auto) 0.0 Neut # (Auto) 20.3 H Lymph # (Auto) 0.7 L Meade # (Auto) 0.2 Eos # (Auto) 0.0 Baso # (Auto) 0.0 Neutrophils % (Manual) 94 H Band Neutrophils % 2 Lymphocytes % (Manual) 3 L Monocytes % (Manual) 1 Platelet Estimate Normal RBC Morphology Normal PT INR APTT Sodium 133 Potassium 3.6 Chloride 95 L Carbon Dioxide 24 Anion Gap 18 BUN 67 H Creatinine 4.4 H Est GFR ( Amer) 12 Est GFR (Non-Af Amer) 10 POC Glucose (mg/dL) 259 H Random Glucose 249 H D Hemoglobin A1c Calcium 8.8 Total Bilirubin 0.3 AST 20 ALT 26 Alkaline Phosphatase 59 Total Protein 6.0 L Albumin 3.6 Globulin 2.4 Albumin/Globulin Ratio 1.5 Triglycerides 74 D Cholesterol 116 LDL Cholesterol Direct 61 HDL Cholesterol 50 Free T4 Total T3 1.01 L TSH 3rd Generation < 0.02 L Urine Color Urine Clarity Urine pH Ur Specific Helen Urine Protein Urine Glucose (UA) Urine Ketones Urine Blood Urine Nitrate Urine Bilirubin Urine Urobilinogen Ur Leukocyte Esterase Urine WBC (Auto) Urine RBC (Auto) Ur Squamous Epith Cells Urine Bacteria Ur L.pneumophila Ag Mycoplasma pneumon IgM 04/15/18 04/15/18 04/15/18 07:05 07:05 10:51 WBC RBC Hgb Hct MCV MCH MCHC RDW Plt Count MPV Neut % (Auto) Lymph % (Auto) Meade % (Auto) Eos % (Auto) Baso % (Auto) Neut # (Auto) Lymph # (Auto) Meade # (Auto) Eos # (Auto) Baso # (Auto) Neutrophils % (Manual) Band Neutrophils % Lymphocytes % (Manual) Monocytes % (Manual) Platelet Estimate RBC Morphology PT 12.4 H INR 1.1 APTT 28 Sodium Potassium Chloride Carbon Dioxide Anion Gap BUN Creatinine Est GFR ( Amer) Est GFR (Non-Af Amer) POC Glucose (mg/dL) Random Glucose Hemoglobin A1c 6.8 H Calcium Total Bilirubin AST ALT Alkaline Phosphatase Total Protein Albumin Globulin Albumin/Globulin Ratio Triglycerides Cholesterol LDL Cholesterol Direct HDL Cholesterol Free T4 2.76 H Total T3 TSH 3rd Generation Urine Color Urine Clarity Urine pH Ur Specific Helen Urine Protein Urine Glucose (UA) Urine Ketones Urine Blood Urine Nitrate Urine Bilirubin Urine Urobilinogen Ur Leukocyte Esterase Urine WBC (Auto) Urine RBC (Auto) Ur Squamous Epith Cells Urine Bacteria Ur L.pneumophila Ag Mycoplasma pneumon IgM 04/15/18 04/15/18 04/15/18 12:17 14:11 16:20 WBC RBC Hgb Hct MCV MCH MCHC RDW Plt Count MPV Neut % (Auto) Lymph % (Auto) Meade % (Auto) Eos % (Auto) Baso % (Auto) Neut # (Auto) Lymph # (Auto) Meade # (Auto) Eos # (Auto) Baso # (Auto) Neutrophils % (Manual) Band Neutrophils % Lymphocytes % (Manual) Monocytes % (Manual) Platelet Estimate RBC Morphology PT INR APTT Sodium Potassium Chloride Carbon Dioxide Anion Gap BUN Creatinine Est GFR ( Amer) Est GFR (Non-Af Amer) POC Glucose (mg/dL) 283 H 114 H Random Glucose Hemoglobin A1c Calcium Total Bilirubin AST ALT Alkaline Phosphatase Total Protein Albumin Globulin Albumin/Globulin Ratio Triglycerides Cholesterol LDL Cholesterol Direct HDL Cholesterol Free T4 Total T3 TSH 3rd Generation Urine Color Yellow Urine Clarity Hazy Urine pH 5.0 Ur Specific Helen 1.014 Urine Protein Negative Urine Glucose (UA) Normal Urine Ketones Negative Urine Blood Negative Urine Nitrate Negative Urine Bilirubin Negative Urine Urobilinogen Normal Ur Leukocyte Esterase Neg Urine WBC (Auto) 1 Urine RBC (Auto) < 1 Ur Squamous Epith Cells < 1 Urine Bacteria Rare Ur L.pneumophila Ag Mycoplasma pneumon IgM Assessment & Plan (1) COPD exacerbation Status: Acute (2) ESRD (end stage renal disease) Status: Acute - Assessment and Plan (Free Text) Plan: Bronchodilators Continue steroids Continue antibiotics Promethazine Hemodialysis as per renal DVT/GI prophylaxis
[2018-04-15] MEDS: guaiFENesin 100 mg/5 ml Syrup UD PO PRN (21:30)
[2018-04-16] MEDS: Acetylcysteine 20% Inhal Soln (4ml) INH SCH ×4 (01:20→21:15)
[2018-04-16] MEDS: Albuterol-Ipratrop 3 mg / 0.5 (3 ml) UD INH SCH ×4 (01:20→21:15)
--- NOTE | 2018-04-16 01:26 | CON ---
DATE: 04/15/2018 REASON FOR CONSULTATION: Consult for evaluation of multiple myeloma. 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 The patient has responded very well. The patient's multiple myeloma is in remission. Last treatment was on 04/11/2018. The patient was complaining of having some cough, pleuritic pain into the left lower chest wall, and was treated with Z-CARLY without any response. The patient now admitted feeling more weak, tired, increasing cough. Denies any fever or chills. I am called on consult for further evaluation and suggestions. PAST MEDICAL HISTORY: Significant for diabetes mellitus, hypothyroidism, hypertension, high cholesterol. MEDICATIONS: The patient is on acylovir 400 mg a day, calcium acetate, famotidine 20 mg a day, glipizide 10 mg a day, Levothyroxine 75 mcg a day, Metoprolol 25 mg once a day, rosuvastatin 5 mg daily. ALLERGIES: NO KNOWN DRUG ALLERGIES. SOCIAL HISTORY: Nonsmoker. No ethanol abuse. REVIEW OF SYSTEMS: Denies any headache, dizziness, or blackout. No chest pain or palpitation. No fever or chills. No cough or sputum. Good appetite. No weight loss. Denies abdominal pain. No nausea, vomiting, melena, hemoptysis, or hematemesis. No dysuria or hematuria. No change in bowel habits. No change in the color of the stool. No tingling or numbness. No localized weakness. No bone pain. PHYSICAL EXAMINATION GENERAL: On examination, the patient is awake, alert, and oriented, quite pleasant, not in acute distress. VITAL SIGNS: Temperature 97.2, pulse 72, blood pressure 116/69, respirations 20. HEENT: Head: Normocephalic, atraumatic. Eyes: Conjunctivae pink, sclerae white. Pupils reacting to light. Ears, nose, and throat within normal limits. LUNGS: Bilaterally good air entry. Clear to auscultation and percussion. HEART: S1, S2 regular. No gallop. No murmur. ABDOMEN: Soft. Nondistended. Nontender. No hepatosplenomegaly. 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 LYMPH NODES: No cervical, axillary or inguinal lymph nodes palpable. LABORATORY DATA: WBC 21,200, neutrophil 20,300, hemoglobin 10.8, platelet count 171,000. BUN is 67, creatinine is 4.4. Albumin 3.6, globulin 2.4. IMPRESSION: 1. Free light-chain multiple myeloma. 2. 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 3. Reactive leukocytosis, neutrophilia. PLAN: Clinical status discussed with the patient. Also discussed with the resident and the attending doctor. We will hold the treatment at present time with Velcade and Decadron. Continue acyclovir 400 mg p.o. daily. Upon discharge, we will follow up in the office and continue the treatment for the multiple myeloma with Velcade and Decadron. The patient has understood and agreed with it. Thank you for letting me participate in the care of this patient, and I will follow up the patient with you. Iggy Martinez MD
[2018-04-16] MEDS: Levothyroxine 150 MCG TAB PO SCH (05:58)
[2018-04-16] MEDS: guaiFENesin 100 mg/5 ml Syrup UD PO PRN ×2 (06:01→10:12)
[2018-04-16 06:57] LABS: HEMOGLOBIN 11.1 g/dL (11.0-16.0); LYMPH # 0.6 K/uL (1.0-4.3); LYMPH % 2.1 % (20.0-40.0); MEAN CORPUSCULAR HEMOGLOBIN 31.7 pg (27.0-31.0); MEAN CORPUSCULAR HGB CONC 33.4 g/dL (33.0-37.0); MEAN PLATELET VOLUME 11.5 fL (7.2-11.7); MONO # 0.6 K/uL (0.0-0.8); MONO % 2.2 % (0.0-10.0); NEUT # 26.1 K/uL (1.8-7.0); NEUT % 95.7 % (50.0-75.0); PLATELET COUNT 190 K/uL (130-400); RBC 3.49 Mil/uL (3.80-5.20); RED CELL DISTRIBUTION WIDTH 13.9 % (11.5-14.5); WHITE BLOOD COUNT 27.3 K/uL (4.8-10.8)
[2018-04-16 07:43] LABS: ALB/GLOB RATIO 1.5 (1.0-2.1); ALBUMIN 3.8 g/dL (3.5-5.0)
[2018-04-16] MEDS: (Novolin R) Insulin Human Regular 100 units/ml vial SC SCH ×4 (08:12→21:23)
[2018-04-16 08:41] LABS: BANDS 6 % (0-2); LYMPHOCYTE 2 % (20-40); MONOCYTE 1 % (0-10); NEUTROPHIL 91 % (50-75); TOTAL CELLS COUNTED 100
[2018-04-16 08:42] LABS: ANISOCYTOSIS SLIGHT; LARGE PLATELETS PRESENT; PLATELET ESTIMATE NORMAL (NORMAL)
[2018-04-16 08:43] LABS: POLYCHROMIC SLIGHT
--- NOTE | 2018-04-16 09:39 | CP.PCM.PN ---
Subjective - Date & Time of Evaluation Date of Evaluation: 04/16/18 Time of Evaluation: 09:38 - Subjective Subjective: seen and examined cough improved yellowish sputum no n/v/d/f/c/dizzinss/headache Objective - Vital Signs/Intake and Output Vital Signs (last 24 hours): Temp Pulse Resp BP Pulse Ox 98.5 F 95 H 20 110/55 L 95 04/16/18 07:00 04/16/18 07:00 04/16/18 07:00 04/16/18 07:00 04/16/18 07:40 Intake and Output: 04/16/18 04/16/18 06:59 18:59 Intake Total 150 Balance 150 - Medications Medications: Current Medications Acetaminophen (Tylenol 325mg Tab) 650 mg PO Q6 PRN PRN Reason: Pain, severe (8-10) Acetylcysteine (Acetylcysteine 20%) 4 ml INH RQ6 [facility] Last Admin: 04/16/18 09:14 Dose: 4 ml Acyclovir (Zovirax) 200 mg PO Q12H [facility]; Protocol Last Admin: 04/15/18 21:23 Dose: 200 mg Albuterol/Ipratropium (Duoneb 3 Mg/0.5 Mg (3 Ml) Ud) 3 ml INH RQ6 [facility] Last Admin: 04/16/18 09:14 Dose: 3 ml Artificial Tears (Artificial Tears) 0 ml OU Q8H PRN PRN Reason: Itchiness eye Last Admin: 04/14/18 19:10 Dose: 1 drop Calcium Acetate (Phoslo) 667 mg PO BIDCC [facility] Last Admin: 04/16/18 08:11 Dose: 667 mg Dextrose (Dextrose 50% Inj) 0 ml IV STAT PRN; Protocol PRN Reason: Hypoglycemia Protocol Dextrose (Glutose 15) 0 gm PO ONCE PRN; Protocol PRN Reason: Hypoglycemia Protocol Docusate Sodium (Colace) 100 mg PO TID [facility] Last Admin: 04/15/18 18:38 Dose: 100 mg Ferrous Sulfate (Feosol) 325 mg PO DAILY [facility] Last Admin: 04/15/18 10:26 Dose: 325 mg Glucagon (Glucagen Diagnostic Kit) 0 mg IM STAT PRN; Protocol PRN Reason: Hypoglycemia Protocol Guaifenesin (Robitussin) 100 mg PO Q4H PRN PRN Reason: Cough Last Admin: 04/16/18 06:01 Dose: 100 mg Heparin Sodium (Porcine) (Heparin) 5,000 units SC Q12 [facility] Last Admin: 04/15/18 21:23 Dose: 5,000 units Ceftriaxone Sodium 1 gm/ (Sodium Chloride) 100 mls @ 100 mls/hr IVPB Q12H [facility]; Protocol Last Admin: 04/16/18 01:33 Dose: 100 mls/hr Azithromycin 500 mg/ Sodium (Chloride) 250 mls @ 250 mls/hr IVPB Q24H [facility]; Protocol Last Admin: 04/15/18 12:30 Dose: 250 mls/hr Dextrose (Dextrose 5% In Water 1000 Ml) 1,000 mls @ 0 mls/hr IV .Q0M PRN; Protocol PRN Reason: Hypoglycemia Protocol Insulin Glargine (Lantus) 10 unit SC DAILY [facility] Last Admin: 04/15/18 10:32 Dose: 10 units Insulin Human Regular (Novolin R) 0 unit SC ACHS [facility]; Protocol Last Admin: 04/16/18 08:12 Dose: 6 units Levothyroxine Sodium (Synthroid) 150 mcg PO DAILY@0630 [facility] Last Admin: 04/16/18 05:58 Dose: 150 mcg Methylprednisolone (Solu-Medrol) 40 mg IVP BID [facility] Last Admin: 04/15/18 18:40 Dose: 40 mg Metoprolol Tartrate (Lopressor) 25 mg PO BID [facility] Last Admin: 04/15/18 18:40 Dose: Not Given Pantoprazole Sodium (Protonix Inj) 40 mg IVP DAILY [facility] Last Admin: 04/15/18 10:25 Dose: 40 mg Rosuvastatin Calcium (Crestor) 5 mg PO HS [facility] Last Admin: 04/15/18 21:23 Dose: 5 mg - Labs Labs: 04/16/18 06:46 04/16/18 06:46 PT 12.4 SECONDS (9.7-12.2) H 04/15/18 10:51 INR 1.1 04/15/18 10:51 APTT 28 SECONDS (21-34) 04/15/18 10:51 - Constitutional Appears: No Acute Distress, Chronically Ill - Head Exam Head Exam: NORMAL INSPECTION, NORMOCEPHALIC - Eye Exam Eye Exam: Normal appearance Pupil Exam: PERRL - ENT Exam ENT Exam: Mucous Membranes Moist, Normal Exam - Neck Exam Neck Exam: Full ROM, Normal Inspection - Respiratory Exam Respiratory Exam: Decreased Breath Sounds, NORMAL BREATHING PATTERN - Cardiovascular Exam Cardiovascular Exam: RRR - GI/Abdominal Exam GI & Abdominal Exam: Distended, Soft, Normal Bowel Sounds - Extremities Exam Extremities Exam: Full ROM (lue avf), Normal Inspection - Neurological Exam Neurological Exam: Alert, Awake, Oriented x3 - Psychiatric Exam Psychiatric exam: Normal Affect, Normal Mood - Skin Skin Exam: Dry, Intact Assessment and Plan (1) ESRD (end stage renal disease) Status: Acute - Assessment and Plan (Free Text) Assessment: esrd on hd cough hx of multiple myeloma chf pulmonary htn hd mwf cultures pending, empiric antibiotics hold off rani until onc consult, active myeloma bp acceptable
[2018-04-16] MEDS: MethylPREDNISolone 40 mg Vial IVP SCH ×2 (10:13→17:35)
[2018-04-16] MEDS: (Lantus) Insulin Glargine, Recombinant SC SCH (10:15)
[2018-04-16] MEDS: guaiFENesin 100 mg/5 ml Syrup UD PO SCH ×4 (12:05→23:43)
--- NOTE | 2018-04-16 12:20 | CP.PCM.PN ---
Objective - Vital Signs/Intake and Output Vital Signs (last 24 hours): Temp Pulse Resp BP Pulse Ox 98.5 F 95 H 20 136/68 95 04/16/18 07:00 04/16/18 07:00 04/16/18 07:00 04/16/18 10:13 04/16/18 07:40 Intake and Output: 04/16/18 04/16/18 06:59 18:59 Intake Total 150 Balance 150 - Medications Medications: Current Medications Acetaminophen (Tylenol 325mg Tab) 650 mg PO Q6 PRN PRN Reason: Pain, severe (8-10) Acetylcysteine (Acetylcysteine 20%) 4 ml INH RQ6 [facility] Last Admin: 04/16/18 09:14 Dose: 4 ml Albuterol/Ipratropium (Duoneb 3 Mg/0.5 Mg (3 Ml) Ud) 3 ml INH RQ6 [facility] Last Admin: 04/16/18 09:14 Dose: 3 ml Artificial Tears (Artificial Tears) 0 ml OU Q8H PRN PRN Reason: Itchiness eye Last Admin: 04/14/18 19:10 Dose: 1 drop Calcium Acetate (Phoslo) 667 mg PO BIDCC [facility] Last Admin: 04/16/18 08:11 Dose: 667 mg Dextrose (Dextrose 50% Inj) 0 ml IV STAT PRN; Protocol PRN Reason: Hypoglycemia Protocol Dextrose (Glutose 15) 0 gm PO ONCE PRN; Protocol PRN Reason: Hypoglycemia Protocol Docusate Sodium (Colace) 100 mg PO TID [facility] Last Admin: 04/16/18 10:13 Dose: 100 mg Ferrous Sulfate (Feosol) 325 mg PO DAILY [facility] Last Admin: 04/16/18 10:13 Dose: 325 mg Glipizide (Glucotrol) 10 mg PO ACB [facility] Glucagon (Glucagen Diagnostic Kit) 0 mg IM STAT PRN; Protocol PRN Reason: Hypoglycemia Protocol Guaifenesin (Robitussin) 100 mg PO Q4H [facility] Last Admin: 04/16/18 12:05 Dose: Not Given Heparin Sodium (Porcine) (Heparin) 5,000 units SC Q12 [facility] Last Admin: 04/16/18 10:13 Dose: 5,000 units Ceftriaxone Sodium 1 gm/ (Sodium Chloride) 100 mls @ 100 mls/hr IVPB Q12H [facility]; Protocol Last Admin: 04/16/18 01:33 Dose: 100 mls/hr Azithromycin 500 mg/ Sodium (Chloride) 250 mls @ 250 mls/hr IVPB Q24H [facility]; Protocol Last Admin: 04/15/18 12:30 Dose: 250 mls/hr Dextrose (Dextrose 5% In Water 1000 Ml) 1,000 mls @ 0 mls/hr IV .Q0M PRN; Protocol PRN Reason: Hypoglycemia Protocol Insulin Human Regular (Novolin R) 0 unit SC ACHS [facility]; Protocol Last Admin: 04/16/18 08:12 Dose: 6 units Levothyroxine Sodium (Synthroid) 150 mcg PO DAILY@0630 [facility] Last Admin: 04/16/18 05:58 Dose: 150 mcg Methylprednisolone (Solu-Medrol) 40 mg IVP BID [facility] Last Admin: 04/16/18 10:13 Dose: 40 mg Metoprolol Tartrate (Lopressor) 25 mg PO BID [facility] Last Admin: 04/16/18 10:13 Dose: 25 mg Pantoprazole Sodium (Protonix Inj) 40 mg IVP DAILY [facility] Last Admin: 04/16/18 10:13 Dose: 40 mg Rosuvastatin Calcium (Crestor) 5 mg PO HS [facility] Last Admin: 04/15/18 21:23 Dose: 5 mg - Labs Labs: 04/16/18 06:46 04/16/18 06:46 PT 12.4 SECONDS (9.7-12.2) H 04/15/18 10:51 INR 1.1 04/15/18 10:51 APTT 28 SECONDS (21-34) 04/15/18 10:51
[2018-04-16] MEDS: Azithromycin 500 MG in Sodium Chloride 0.9% 250 ML IVPB SCH (12:26)
--- NOTE | 2018-04-16 18:25 | CP.PCM.PN ---
Subjective - Date & Time of Evaluation Date of Evaluation: 04/16/18 Time of Evaluation: 13:00 - Subjective Subjective: seen and examined with the resident. patient is complaining of cough,mild sob,could not sleep last night Objective - Vital Signs/Intake and Output Vital Signs (last 24 hours): Temp Pulse Resp BP Pulse Ox 98.1 F 99 H 20 134/64 94 L 04/16/18 15:00 04/16/18 15:00 04/16/18 15:00 04/16/18 17:35 04/16/18 15:00 Intake and Output: 04/16/18 04/16/18 06:59 18:59 Intake Total 150 Balance 150 - Medications Medications: Current Medications Acetaminophen (Tylenol 325mg Tab) 650 mg PO Q6 PRN PRN Reason: Pain, severe (8-10) Acetylcysteine (Acetylcysteine 20%) 4 ml INH RQ6 [facility] Last Admin: 04/16/18 14:20 Dose: 4 ml Albuterol/Ipratropium (Duoneb 3 Mg/0.5 Mg (3 Ml) Ud) 3 ml INH RQ6 [facility] Last Admin: 04/16/18 14:20 Dose: 3 ml Artificial Tears (Artificial Tears) 0 ml OU Q8H PRN PRN Reason: Itchiness eye Last Admin: 04/14/18 19:10 Dose: 1 drop Calcium Acetate (Phoslo) 667 mg PO BIDCC [facility] Last Admin: 04/16/18 17:34 Dose: 667 mg Dextrose (Dextrose 50% Inj) 0 ml IV STAT PRN; Protocol PRN Reason: Hypoglycemia Protocol Dextrose (Glutose 15) 0 gm PO ONCE PRN; Protocol PRN Reason: Hypoglycemia Protocol Docusate Sodium (Colace) 100 mg PO TID [facility] Last Admin: 04/16/18 17:34 Dose: 100 mg Ferrous Sulfate (Feosol) 325 mg PO DAILY [facility] Last Admin: 04/16/18 10:13 Dose: 325 mg Glipizide (Glucotrol) 10 mg PO ACB [facility] Glucagon (Glucagen Diagnostic Kit) 0 mg IM STAT PRN; Protocol PRN Reason: Hypoglycemia Protocol Guaifenesin (Robitussin) 100 mg PO Q4H [facility] Last Admin: 04/16/18 17:34 Dose: 100 mg Heparin Sodium (Porcine) (Heparin) 5,000 units SC Q12 [facility] Last Admin: 04/16/18 10:13 Dose: 5,000 units Ceftriaxone Sodium 1 gm/ (Sodium Chloride) 100 mls @ 100 mls/hr IVPB Q12H [facility]; Protocol Last Admin: 04/16/18 13:47 Dose: 100 mls/hr Azithromycin 500 mg/ Sodium (Chloride) 250 mls @ 250 mls/hr IVPB Q24H [facility]; Protocol Last Admin: 04/16/18 12:26 Dose: 250 mls/hr Dextrose (Dextrose 5% In Water 1000 Ml) 1,000 mls @ 0 mls/hr IV .Q0M PRN; Protocol PRN Reason: Hypoglycemia Protocol Insulin Human Regular (Novolin R) 0 unit SC ACHS [facility]; Protocol Last Admin: 04/16/18 17:36 Dose: 8 units Levothyroxine Sodium (Synthroid) 150 mcg PO DAILY@0630 [facility] Last Admin: 04/16/18 05:58 Dose: 150 mcg Methylprednisolone (Solu-Medrol) 40 mg IVP BID [facility] Last Admin: 04/16/18 17:35 Dose: 40 mg Metoprolol Tartrate (Lopressor) 25 mg PO BID [facility] Last Admin: 04/16/18 17:35 Dose: 25 mg Pantoprazole Sodium (Protonix Inj) 40 mg IVP DAILY [facility] Last Admin: 04/16/18 10:13 Dose: 40 mg Rosuvastatin Calcium (Crestor) 5 mg PO HS [facility] Last Admin: 04/15/18 21:23 Dose: 5 mg - Labs Labs: 04/16/18 06:46 04/16/18 06:46 PT 12.4 SECONDS (9.7-12.2) H 04/15/18 10:51 INR 1.1 04/15/18 10:51 APTT 28 SECONDS (21-34) 04/15/18 10:51 - Constitutional Appears: Non-toxic, No Acute Distress - Head Exam Head Exam: NORMAL INSPECTION - Eye Exam Eye Exam: Normal appearance - ENT Exam ENT Exam: Mucous Membranes Moist - Neck Exam Neck Exam: Full ROM - Respiratory Exam Respiratory Exam: Rales (right lower lobe), NORMAL BREATHING PATTERN - Cardiovascular Exam Cardiovascular Exam: REGULAR RHYTHM - GI/Abdominal Exam GI & Abdominal Exam: Soft, Normal Bowel Sounds - Extremities Exam Extremities Exam: Full ROM - Back Exam Back Exam: NORMAL INSPECTION - Neurological Exam Neurological Exam: Awake, Oriented x3 - Psychiatric Exam Psychiatric exam: Anxious, Normal Affect - Skin Skin Exam: Dry, Intact, Normal Color Assessment and Plan - Assessment and Plan (Free Text) Plan: 1.Bronchitis cough and mild sob,has Ronchi Chest xray: mild pulmonary venous congestion, well inflated and clear, no acute findings CT chest w/o contrast - Mild air trapping, no pulmonary mass, suspicious nodule or focal consolidation EKG: NSR WBC: high flu - negative Atypicals - legionella - negative Mycoplasma IgG - negative Echo - pulmonary hypertension .normal EF Blood culture - no growth Meds: - Duonebs rQ6 [facility] - Mucomyst rQ8H [facility] - Rocephin 1gm IVPB BID - Azythromycin 500mg IVPB QDaily - Solumedrol 40mg IV BID - Robitussin [address] Mai 2.ESRD on HD MWF - Dr Bill. 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 DMII [id number] refuses insulin . we will resume glipizide - accuchecks ACHS - HbA1c - 6.8 6.Hypothyroidism - levothyroxine 150mcg PO QD - TSH - 0.02 - free T4- 2.70 7 HLD - crestor 5mg PO QD - Lipid panel - within normal limits PPX DVT: SCDs, Heparin 5000 U Q12H GI: protonix 40mg IVP QD HHD, low fat/low cholesterol, 2gm, low CHO tylenol q6 PRN for pain f/u am labs - artificial tears for itchiness in eyes
[2018-04-17] MEDS: Albuterol-Ipratrop 3 mg / 0.5 (3 ml) UD INH SCH ×4 (01:06→19:24)
[2018-04-17] MEDS: Acetylcysteine 20% Inhal Soln (4ml) INH SCH ×4 (01:06→19:24)
[2018-04-17] MEDS: guaiFENesin 100 mg/5 ml Syrup UD PO SCH ×5 (02:57→22:24)
[2018-04-17] MEDS: Levothyroxine 150 MCG TAB PO SCH (06:18)
[2018-04-17 06:40] LABS: BASO % 0.1 % (0.0-2.0); HEMOGLOBIN 10.1 g/dL (11.0-16.0); LYMPH # 0.6 K/uL (1.0-4.3); LYMPH % 2.6 % (20.0-40.0); MEAN CORPUSCULAR HEMOGLOBIN 31.2 pg (27.0-31.0); MEAN CORPUSCULAR HGB CONC 32.8 g/dL (33.0-37.0); MEAN PLATELET VOLUME 11.3 fL (7.2-11.7); MONO # 0.9 K/uL (0.0-0.8); NEUT # 19.9 K/uL (1.8-7.0); NEUT % 93.3 % (50.0-75.0); PLATELET COUNT 161 K/uL (130-400); RBC 3.25 Mil/uL (3.80-5.20); RED CELL DISTRIBUTION WIDTH 14.3 % (11.5-14.5); WHITE BLOOD COUNT 21.4 K/uL (4.8-10.8)
[2018-04-17] MEDS: (Novolin R) Insulin Human Regular 100 units/ml vial SC SCH ×3 (08:30→22:26)
[2018-04-17 08:39] LABS: BANDS 3 % (0-2); LYMPHOCYTE 1 % (20-40); MONOCYTE 4 % (0-10); NEUTROPHIL 92 % (50-75); PLATELET ESTIMATE NORMAL (NORMAL); TOTAL CELLS COUNTED 100
[2018-04-17 08:40] LABS: GIANT PLATELETS PRESENT; LARGE PLATELETS PRESENT
[2018-04-17] MEDS: MethylPREDNISolone 40 mg Vial IVP SCH ×2 (09:55→18:24)
--- NOTE | 2018-04-17 10:18 | RAD ---
Date of service: 04/17/2018 HISTORY: admitted for cough, sputum production COMPARISON: Portable chest 04/14/2018. FINDINGS: LUNGS: No interval change in left MediPort positioning. No interval infiltrate identified bilaterally. PLEURA: No significant pleural effusion identified, no pneumothorax apparent. CARDIOVASCULAR: Calcific atherosclerotic changes are seen related to the thoracic aorta. Normal cardiac size. No pulmonary vascular congestion. Dense mitral annular calcification reiterated. OSSEOUS STRUCTURES: No significant abnormalities. VISUALIZED UPPER ABDOMEN: Normal. OTHER FINDINGS: None. IMPRESSION: No interval acute cardiopulmonary disease appreciated.
--- NOTE | 2018-04-17 13:09 | CP.PCM.PN ---
Subjective - Date & Time of Evaluation Date of Evaluation: 04/17/18 Time of Evaluation: 13:07 - Subjective Subjective: breathing better getting a nebulizer treatment HD today no acute distress no chest pain mild sob no change in urine no headache no fever no vomiting no rash no abdominal pain Objective - Vital Signs/Intake and Output Vital Signs (last 24 hours): Temp Pulse Resp BP Pulse Ox 97.4 F L 110 H 17 105/63 98 04/17/18 11:55 04/17/18 11:55 04/17/18 11:55 04/17/18 11:55 04/17/18 11:55 Intake and Output: 04/17/18 04/17/18 06:59 18:59 Intake Total 220 Balance 220 - Medications Medications: Current Medications Acetaminophen (Tylenol 325mg Tab) 650 mg PO Q6 PRN PRN Reason: Pain, severe (8-10) Acetylcysteine (Acetylcysteine 20%) 4 ml INH RQ6 [facility] Last Admin: 04/17/18 07:50 Dose: 4 ml Albuterol/Ipratropium (Duoneb 3 Mg/0.5 Mg (3 Ml) Ud) 3 ml INH RQ6 [facility] Last Admin: 04/17/18 07:50 Dose: 3 ml Artificial Tears (Artificial Tears) 0 ml OU Q8H PRN PRN Reason: Itchiness eye Last Admin: 04/14/18 19:10 Dose: 1 drop Calcium Acetate (Phoslo) 667 mg PO BIDCC [facility] Last Admin: 04/17/18 08:30 Dose: Not Given Dextrose (Dextrose 50% Inj) 0 ml IV STAT PRN; Protocol PRN Reason: Hypoglycemia Protocol Dextrose (Glutose 15) 0 gm PO ONCE PRN; Protocol PRN Reason: Hypoglycemia Protocol Docusate Sodium (Colace) 100 mg PO TID [facility] Last Admin: 04/17/18 09:52 Dose: Not Given Ferrous Sulfate (Feosol) 325 mg PO DAILY [facility] Last Admin: 04/17/18 09:52 Dose: Not Given Glipizide (Glucotrol) 10 mg PO ACB [facility] Last Admin: 04/17/18 08:30 Dose: Not Given Glucagon (Glucagen Diagnostic Kit) 0 mg IM STAT PRN; Protocol PRN Reason: Hypoglycemia Protocol Guaifenesin (Robitussin) 100 mg PO Q4H [facility] Last Admin: 04/17/18 09:55 Dose: Not Given Heparin Sodium (Porcine) (Heparin) 5,000 units SC Q12 [facility] Last Admin: 04/17/18 09:53 Dose: Not Given Ceftriaxone Sodium 1 gm/ (Sodium Chloride) 100 mls @ 100 mls/hr IVPB Q12H [facility]; Protocol Last Admin: 04/17/18 02:56 Dose: 100 mls/hr Azithromycin 500 mg/ Sodium (Chloride) 250 mls @ 250 mls/hr IVPB Q24H [facility]; Protocol Last Admin: 04/16/18 12:26 Dose: 250 mls/hr Dextrose (Dextrose 5% In Water 1000 Ml) 1,000 mls @ 0 mls/hr IV .Q0M PRN; Protocol PRN Reason: Hypoglycemia Protocol Insulin Human Regular (Novolin R) 0 unit SC ACHS [facility]; Protocol Last Admin: 04/17/18 08:30 Dose: Not Given Levothyroxine Sodium (Synthroid) 150 mcg PO DAILY@0630 [facility] Last Admin: 04/17/18 06:18 Dose: 150 mcg Methylprednisolone (Solu-Medrol) 40 mg IVP BID [facility] Last Admin: 04/17/18 09:55 Dose: Not Given Metoprolol Tartrate (Lopressor) 25 mg PO BID [facility] Last Admin: 04/17/18 09:54 Dose: Not Given Pantoprazole Sodium (Protonix Inj) 40 mg IVP DAILY [facility] Last Admin: 04/17/18 09:55 Dose: Not Given Rosuvastatin Calcium (Crestor) 5 mg PO HS [facility] Last Admin: 04/16/18 21:29 Dose: 5 mg - Labs Labs: 04/17/18 06:16 04/16/18 06:46 PT 12.4 SECONDS (9.7-12.2) H 04/15/18 10:51 INR 1.1 04/15/18 10:51 APTT 28 SECONDS (21-34) 04/15/18 10:51 - Constitutional Appears: No Acute Distress, Chronically Ill - Head Exam Head Exam: ATRAUMATIC, NORMAL INSPECTION - Eye Exam Eye Exam: EOMI - ENT Exam ENT Exam: Mucous Membranes Moist - Neck Exam Neck Exam: Full ROM. absent: Lymphadenopathy - Respiratory Exam Respiratory Exam: Clear to Ausculation Bilateral. absent: Wheezes - Cardiovascular Exam Cardiovascular Exam: REGULAR RHYTHM. absent: Rubs - GI/Abdominal Exam GI & Abdominal Exam: Soft. absent: Tenderness - Neurological Exam Neurological Exam: Alert, Awake Assessment and Plan - Assessment and Plan (Free Text) Assessment: continue ab and pulmonary toilet maint HD to be continued
[2018-04-17 13:13] LABS: ALB/GLOB RATIO 1.4 (1.0-2.1); ALBUMIN 3.3 g/dL (3.5-5.0); CALCIUM 8.6 mg/dl (8.6-10.4)
--- NOTE | 2018-04-17 16:56 | CP.PCM.PN ---
Subjective - Date & Time of Evaluation Date of Evaluation: 04/17/18 Time of Evaluation: 16:55 - Subjective Subjective: Pt is seen and examined No evenst overnight Reports cough and SOB Objective - Vital Signs/Intake and Output Vital Signs (last 24 hours): Temp Pulse Resp BP Pulse Ox 97.4 F L 110 H 17 105/63 98 04/17/18 11:55 04/17/18 11:55 04/17/18 11:55 04/17/18 11:55 04/17/18 16:00 Intake and Output: 04/17/18 04/17/18 06:59 18:59 Intake Total 220 550 Balance 220 550 - Medications Medications: Current Medications Acetaminophen (Tylenol 325mg Tab) 650 mg PO Q6 PRN PRN Reason: Pain, severe (8-10) Acetylcysteine (Acetylcysteine 20%) 4 ml INH RQ6 [facility] Last Admin: 04/17/18 13:42 Dose: 4 ml Albuterol/Ipratropium (Duoneb 3 Mg/0.5 Mg (3 Ml) Ud) 3 ml INH RQ6 [facility] Last Admin: 04/17/18 13:42 Dose: 3 ml Artificial Tears (Artificial Tears) 0 ml OU Q8H PRN PRN Reason: Itchiness eye Last Admin: 04/14/18 19:10 Dose: 1 drop Calcium Acetate (Phoslo) 667 mg PO BIDCC [facility] Last Admin: 04/17/18 08:30 Dose: Not Given Dextrose (Dextrose 50% Inj) 0 ml IV STAT PRN; Protocol PRN Reason: Hypoglycemia Protocol Dextrose (Glutose 15) 0 gm PO ONCE PRN; Protocol PRN Reason: Hypoglycemia Protocol Docusate Sodium (Colace) 100 mg PO TID [facility] Last Admin: 04/17/18 09:52 Dose: Not Given Ferrous Sulfate (Feosol) 325 mg PO DAILY [facility] Last Admin: 04/17/18 09:52 Dose: Not Given Glipizide (Glucotrol) 10 mg PO ACB [facility] Last Admin: 04/17/18 08:30 Dose: Not Given Glucagon (Glucagen Diagnostic Kit) 0 mg IM STAT PRN; Protocol PRN Reason: Hypoglycemia Protocol Guaifenesin (Robitussin) 100 mg PO Q4H [facility] Last Admin: 04/17/18 09:55 Dose: Not Given Heparin Sodium (Porcine) (Heparin) 5,000 units SC Q12 [facility] Last Admin: 04/17/18 09:53 Dose: Not Given Ceftriaxone Sodium 1 gm/ (Sodium Chloride) 100 mls @ 100 mls/hr IVPB Q12H [facility]; Protocol Last Admin: 04/17/18 14:40 Dose: 100 mls/hr Azithromycin 500 mg/ Sodium (Chloride) 250 mls @ 250 mls/hr IVPB Q24H [facility]; Protocol Last Admin: 04/16/18 12:26 Dose: 250 mls/hr Dextrose (Dextrose 5% In Water 1000 Ml) 1,000 mls @ 0 mls/hr IV .Q0M PRN; Protocol PRN Reason: Hypoglycemia Protocol Insulin Human Regular (Novolin R) 0 unit SC ACHS [facility]; Protocol Last Admin: 04/17/18 08:30 Dose: Not Given Levothyroxine Sodium (Synthroid) 150 mcg PO DAILY@0630 [facility] Last Admin: 04/17/18 06:18 Dose: 150 mcg Methylprednisolone (Solu-Medrol) 40 mg IVP BID [facility] Last Admin: 04/17/18 09:55 Dose: Not Given Metoprolol Tartrate (Lopressor) 25 mg PO BID [facility] Last Admin: 04/17/18 09:54 Dose: Not Given Pantoprazole Sodium (Protonix Inj) 40 mg IVP DAILY [facility] Last Admin: 04/17/18 09:55 Dose: Not Given Rosuvastatin Calcium (Crestor) 5 mg PO HS [facility] Last Admin: 04/16/18 21:29 Dose: 5 mg - Labs Labs: 04/17/18 06:16 04/17/18 06:16 PT 12.4 SECONDS (9.7-12.2) H 04/15/18 10:51 INR 1.1 04/15/18 10:51 APTT 28 SECONDS (21-34) 04/15/18 10:51 - Head Exam Head Exam: NORMAL INSPECTION - Eye Exam Eye Exam: Normal appearance - ENT Exam ENT Exam: Mucous Membranes Moist - Respiratory Exam Respiratory Exam: Prolonged Expiratory Phase, Wheezes - Cardiovascular Exam Cardiovascular Exam: REGULAR RHYTHM, +S1, +S2 - GI/Abdominal Exam GI & Abdominal Exam: Soft, Normal Bowel Sounds - Neurological Exam Neurological Exam: Alert, Oriented x3 Assessment and Plan (1) COPD exacerbation Status: Acute (2) ESRD (end stage renal disease) Status: Acute - Assessment and Plan (Free Text) Plan: Bronchodilators Continue steroids Continue antibiotics Promethazine Hemodialysis as per renal DVT/GI prophylaxis
--- NOTE | 2018-04-17 17:53 | CP.PCM.PN ---
<Tanisha Lancaster Y - Last Filed: 04/17/18 17:47> Subjective - Date & Time of Evaluation Date of Evaluation: 04/17/18 Time of Evaluation: 10:15 - Subjective Subjective: PGY-1 Medicine Progress Note for Dr. Moscoso Patient was seen and examined today at bedside in HD in no acute distress. Nurse reports no overnight events. Patient reports continuing cough, although overall improvement in her breathing. Denies chest pain, lightheadedness, dizziness, abdominal pain, nausea, vomiting. Objective - Vital Signs/Intake and Output Vital Signs (last 24 hours): Temp Pulse Resp BP Pulse Ox 97.4 F L 110 H 17 105/63 98 04/17/18 11:55 04/17/18 11:55 04/17/18 11:55 04/17/18 11:55 04/17/18 16:00 Intake and Output: 04/17/18 04/17/18 06:59 18:59 Intake Total 220 550 Balance 220 550 - Medications Medications: Current Medications Acetaminophen (Tylenol 325mg Tab) 650 mg PO Q6 PRN PRN Reason: Pain, severe (8-10) Acetylcysteine (Acetylcysteine 20%) 4 ml INH RQ6 [facility] Last Admin: 04/17/18 13:42 Dose: 4 ml Albuterol/Ipratropium (Duoneb 3 Mg/0.5 Mg (3 Ml) Ud) 3 ml INH RQ6 [facility] Last Admin: 04/17/18 13:42 Dose: 3 ml Artificial Tears (Artificial Tears) 0 ml OU Q8H PRN PRN Reason: Itchiness eye Last Admin: 04/14/18 19:10 Dose: 1 drop Calcium Acetate (Phoslo) 667 mg PO BIDCC [facility] Last Admin: 04/17/18 08:30 Dose: Not Given Dextrose (Dextrose 50% Inj) 0 ml IV STAT PRN; Protocol PRN Reason: Hypoglycemia Protocol Dextrose (Glutose 15) 0 gm PO ONCE PRN; Protocol PRN Reason: Hypoglycemia Protocol Docusate Sodium (Colace) 100 mg PO TID [facility] Last Admin: 04/17/18 09:52 Dose: Not Given Ferrous Sulfate (Feosol) 325 mg PO DAILY [facility] Last Admin: 04/17/18 09:52 Dose: Not Given Glipizide (Glucotrol) 10 mg PO ACB [facility] Last Admin: 04/17/18 08:30 Dose: Not Given Glucagon (Glucagen Diagnostic Kit) 0 mg IM STAT PRN; Protocol PRN Reason: Hypoglycemia Protocol Guaifenesin (Robitussin) 100 mg PO Q4H [facility] Last Admin: 04/17/18 09:55 Dose: Not Given Heparin Sodium (Porcine) (Heparin) 5,000 units SC Q12 [facility] Last Admin: 04/17/18 09:53 Dose: Not Given Ceftriaxone Sodium 1 gm/ (Sodium Chloride) 100 mls @ 100 mls/hr IVPB Q12H [facility]; Protocol Last Admin: 04/17/18 14:40 Dose: 100 mls/hr Azithromycin 500 mg/ Sodium (Chloride) 250 mls @ 250 mls/hr IVPB Q24H [facility]; Protocol Last Admin: 04/16/18 12:26 Dose: 250 mls/hr Dextrose (Dextrose 5% In Water 1000 Ml) 1,000 mls @ 0 mls/hr IV .Q0M PRN; Protocol PRN Reason: Hypoglycemia Protocol Insulin Human Regular (Novolin R) 0 unit SC ACHS [facility]; Protocol Last Admin: 04/17/18 08:30 Dose: Not Given Levothyroxine Sodium (Synthroid) 150 mcg PO DAILY@0630 [facility] Last Admin: 04/17/18 06:18 Dose: 150 mcg Methylprednisolone (Solu-Medrol) 40 mg IVP BID [facility] Last Admin: 04/17/18 09:55 Dose: Not Given Metoprolol Tartrate (Lopressor) 25 mg PO BID [facility] Last Admin: 04/17/18 09:54 Dose: Not Given Pantoprazole Sodium (Protonix Inj) 40 mg IVP DAILY [facility] Last Admin: 04/17/18 09:55 Dose: Not Given Rosuvastatin Calcium (Crestor) 5 mg PO HS [facility] Last Admin: 04/16/18 21:29 Dose: 5 mg - Labs Labs: 04/17/18 06:16 04/17/18 06:16 PT 12.4 SECONDS (9.7-12.2) H 04/15/18 10:51 INR 1.1 04/15/18 10:51 APTT 28 SECONDS (21-34) 04/15/18 10:51 - Constitutional Appears: Well, No Acute Distress - Head Exam Head Exam: ATRAUMATIC, NORMOCEPHALIC - Eye Exam Eye Exam: EOMI, Normal appearance, PERRL - ENT Exam ENT Exam: Mucous Membranes Moist - Respiratory Exam Respiratory Exam: Decreased Breath Sounds, Rales, NORMAL BREATHING PATTERN. absent: Accessory Muscle Use, Rhonchi, Wheezes - Cardiovascular Exam Cardiovascular Exam: REGULAR RHYTHM, +S1, +S2. absent: Gallop, Rubs, Murmur Additional comments: HD in L arm - GI/Abdominal Exam GI & Abdominal Exam: Soft, Normal Bowel Sounds. absent: Distended, Firm, Guarding, Tenderness - Extremities Exam Extremities Exam: Normal Capillary Refill. absent: Calf Tenderness - Neurological Exam Neurological Exam: Alert, Awake, Oriented x3 - Psychiatric Exam Psychiatric exam: Anxious - Skin Skin Exam: Normal Color Additional comments: right UE echymosis on anterior side of the arm, dry blood near the IV saline lock on right arm Multiple old ecchymosis on bilateral arm and forearm Assessment and Plan - Assessment and Plan (Free Text) Plan: 1. Bronchitis cough and mild sob,has Ronchi Chest xray: mild pulmonary venous congestion, well inflated and clear, no acute findings CT chest w/o contrast - Mild air trapping, no pulmonary mass, suspicious nodule or focal consolidation EKG: NSR WBC: high flu - negative Atypicals - legionella - negative Mycoplasma IgG - negative Echo - pulmonary hypertension .normal EF Blood culture - no growth Meds: - Duonebs rQ6 [facility] - Mucomyst rQ8H [facility] - Rocephin 1gm IVPB BID - Azythromycin 500mg IVPB QDaily - Solumedrol 40mg IV BID - Robitussin [address] Mai 2. ESRD on HD MWF - Dr Bill. Dr Sotelo - nephro consult - Continue home meds Ferous sulfate and calcium acetate 3. Multiple myeloma Heme/Onc Dr Martinez consult - help is appreciated - follow up outpatient Patient gets Velcade IV 1x a week for 3 weeks a month patient will follow hem atologist continue acyclovir 200mg PO BID continue now 4. HTN - continue checking vitals - Continue home med Lopressor 25mg PO BID 5. DMII Patient tends to refuse insulin - resume glipizide - accuchecks ACHS - HbA1c - 6.8 6. Hypothyroidism - levothyroxine 150mcg PO QD - TSH - 0.02 - free T4- 2.70 7. HLD - crestor 5mg PO QD - Lipid panel - within normal limits PPX DVT: SCDs, Heparin 5000 U Q12H GI: protonix 40mg IVP QD HHD, low fat/low cholesterol, 2gm, low CHO tylenol q6 PRN for pain f/u am labs - artificial tears for itchiness in eyes Dispo: Patient is improving and ready for discharge. However, patient became anxious when discharge topic was introduced, so discharge has been delayed to earliest tomorrow morning. d/w Dr. Blanka Lancaster PGY-1 <Miranda Moscoso - Last Filed: 04/18/18 20:10> Objective - Vital Signs/Intake and Output Vital Signs (last 24 hours): Temp Pulse Resp BP Pulse Ox 98.1 F 93 H 20 116/66 96 04/18/18 16:57 04/18/18 16:57 04/18/18 16:57 04/18/18 17:24 04/18/18 16:57 - Medications Medications: Current Medications Acetaminophen (Tylenol 325mg Tab) 650 mg PO Q6 PRN PRN Reason: Pain, severe (8-10) Acetylcysteine (Acetylcysteine 20%) 4 ml INH RQ6 [facility] Last Admin: 04/18/18 19:27 Dose: 4 ml Albuterol/Ipratropium (Duoneb 3 Mg/0.5 Mg (3 Ml) Ud) 3 ml INH RQ6 [facility] Last Admin: 04/18/18 19:27 Dose: 3 ml Artificial Tears (Artificial Tears) 0 ml OU Q8H PRN PRN Reason: Itchiness eye Last Admin: 04/14/18 19:10 Dose: 1 drop Calcium Acetate (Phoslo) 667 mg PO BIDCC [facility] Last Admin: 04/18/18 17:24 Dose: 667 mg Dextrose (Dextrose 50% Inj) 0 ml IV STAT PRN; Protocol PRN Reason: Hypoglycemia Protocol Dextrose (Glutose 15) 0 gm PO ONCE PRN; Protocol PRN Reason: Hypoglycemia Protocol Docusate Sodium (Colace) 100 mg PO TID [facility] Last Admin: 04/18/18 17:24 Dose: 100 mg Ferrous Sulfate (Feosol) 325 mg PO DAILY [facility] Last Admin: 04/18/18 09:20 Dose: 325 mg Glipizide (Glucotrol) 10 mg PO ACB [facility] Last Admin: 04/18/18 08:25 Dose: 10 mg Glucagon (Glucagen Diagnostic Kit) 0 mg IM STAT PRN; Protocol PRN Reason: Hypoglycemia Protocol Guaifenesin (Robitussin) 100 mg PO Q4H [facility] Last Admin: 04/18/18 17:30 Dose: 100 mg Heparin Sodium (Porcine) (Heparin) 5,000 units SC Q12 [facility] Last Admin: 04/18/18 10:25 Dose: 5,000 units Ceftriaxone Sodium 1 gm/ (Sodium Chloride) 100 mls @ 100 mls/hr IVPB Q12H [facility]; Protocol Last Admin: 04/18/18 14:26 Dose: 100 mls/hr Azithromycin 500 mg/ Sodium (Chloride) 250 mls @ 250 mls/hr IVPB Q24H [facility]; Pro tocol Last Admin: 04/18/18 13:00 Dose: 250 mls/hr Dextrose (Dextrose 5% In Water 1000 Ml) 1,000 mls @ 0 mls/hr IV .Q0M PRN; Protocol PRN Reason: Hypoglycemia Protocol Insulin Human Regular (Novolin R) 0 unit SC ACHS [facility]; Protocol Last Admin: 04/18/18 17:25 Dose: 4 units Levothyroxine Sodium (Synthroid) 150 mcg PO DAILY@0630 [facility] Last Admin: 04/18/18 07:19 Dose: 150 mcg Methylprednisolone (Solu-Medrol) 40 mg IVP BID [facility] Last Admin: 04/18/18 17:24 Dose: 40 mg Metoprolol Tartrate (Lopressor) 25 mg PO BID [facility] Last Admin: 04/18/18 17:24 Dose: 25 mg Pantoprazole Sodium (Protonix Ec Tab) 40 mg PO DAILY [facility] Last Admin: 04/18/18 10:25 Dose: 40 mg Promethazine HCl/Dextromethorphan (Phenergan Dm Syrup) 5 ml PO Q6H PRN PRN Reason: Cough Rosuvastatin Calcium (Crestor) 5 mg PO HS [facility] Last Admin: 04/17/18 22:24 Dose: 5 mg - Labs Labs: 04/18/18 07:15 04/18/18 07:15 PT 12.4 SECONDS (9.7-12.2) H 04/15/18 10:51 INR 1.1 12/31/18 10:51 APTT 28 SECONDS (21-34) 04/15/18 10:51 Attending/Attestation - Attestation I have personally seen and examined this patient.: Yes I have fully participated in the care of the patient.: Yes I have reviewed all pertinent clinical information, including history, physical exam and plan: Yes Notes (Text): Patient was seen this morning during dialysis. She was doing better. In the afternoon she was having wheezing and coughing. Seen by Pulmonary Dr Mai .Discussed with him. WE will keep overnight and continue IV solumedrol and antibiotics. Patient is not stable for discharge 1.Bronchitis 2.ESRD on HD 3.HTN 4.MM 5.DM Assessment and the plan discussed with the resident
[2018-04-18] MEDS: Acetylcysteine 20% Inhal Soln (4ml) INH SCH ×4 (03:14→19:27)
[2018-04-18] MEDS: Albuterol-Ipratrop 3 mg / 0.5 (3 ml) UD INH SCH ×4 (03:14→19:27)
[2018-04-18] MEDS: Levothyroxine 150 MCG TAB PO SCH (07:19)
[2018-04-18] MEDS: guaiFENesin 100 mg/5 ml Syrup UD PO SCH ×6 (07:20→21:31)
[2018-04-18] MEDS ORDERED: Promethazine 12.5 mg/10 ml Syrup PO PRN (07:40)
[2018-04-18 07:41] LABS: ALB/GLOB RATIO 1.6 (1.0-2.1); ALBUMIN 3.8 g/dL (3.5-5.0); CALCIUM 8.5 mg/dl (8.6-10.4)
[2018-04-18 07:46] LABS: BASO % 0.2 % (0.0-2.0); HEMOGLOBIN 11.2 g/dL (11.0-16.0); LYMPH # 1.1 K/uL (1.0-4.3); LYMPH % 5.5 % (20.0-40.0); MEAN CELL VOLUME 95.7 fL (81.0-99.0); MEAN CORPUSCULAR HGB CONC 32.4 g/dL (33.0-37.0); MEAN PLATELET VOLUME 11.8 fL (7.2-11.7); MONO # 0.6 K/uL (0.0-0.8); NEUT # 18.4 K/uL (1.8-7.0); NEUT % 91.3 % (50.0-75.0); NRBC % 0.2 % (0.0-2.0); PLATELET COUNT 186 K/uL (130-400); RBC 3.62 Mil/uL (3.80-5.20); RED CELL DISTRIBUTION WIDTH 14.6 % (11.5-14.5); WHITE BLOOD COUNT 20.2 K/uL (4.8-10.8)
[2018-04-18] MEDS: (Novolin R) Insulin Human Regular 100 units/ml vial SC SCH ×5 (08:15→21:39)
--- NOTE | 2018-04-18 09:46 | CP.PCM.PN ---
Subjective - Date & Time of Evaluation Date of Evaluation: 04/18/18 Time of Evaluation: 09:43 - Subjective Subjective: Still dyspneic, dry cough Also orthopneic On steroids for bronchitis Objective - Vital Signs/Intake and Output Vital Signs (last 24 hours): Temp Pulse Resp BP Pulse Ox 97.9 F 103 H 20 121/57 L 95 04/18/18 08:40 04/18/18 08:40 04/18/18 08:40 04/18/18 08:40 04/18/18 08:40 Intake and Output: 04/18/18 04/18/18 06:59 18:59 Intake Total 240 Balance 240 - Medications Medications: Current Medications Acetaminophen (Tylenol 325mg Tab) 650 mg PO Q6 PRN PRN Reason: Pain, severe (8-10) Acetylcysteine (Acetylcysteine 20%) 4 ml INH RQ6 [facility] Last Admin: 04/18/18 07:56 Dose: Not Given Albuterol/Ipratropium (Duoneb 3 Mg/0.5 Mg (3 Ml) Ud) 3 ml INH RQ6 [facility] Last Admin: 04/18/18 07:56 Dose: 3 ml Artificial Tears (Artificial Tears) 0 ml OU Q8H PRN PRN Reason: Itchiness eye Last Admin: 04/14/18 19:10 Dose: 1 drop Calcium Acetate (Phoslo) 667 mg PO BIDCC [facility] Last Admin: 04/17/18 17:24 Dose: 667 mg Dextrose (Dextrose 50% Inj) 0 ml IV STAT PRN; Protocol PRN Reason: Hypoglycemia Protocol Dextrose (Glutose 15) 0 gm PO ONCE PRN; Protocol PRN Reason: Hypoglycemia Protocol Docusate Sodium (Colace) 100 mg PO TID [facility] Last Admin: 04/17/18 18:24 Dose: 100 mg Ferrous Sulfate (Feosol) 325 mg PO DAILY [facility] Last Admin: 04/17/18 09:52 Dose: Not Given Glipizide (Glucotrol) 10 mg PO ACB [facility] Last Admin: 04/17/18 08:30 Dose: Not Given Glucagon (Glucagen Diagnostic Kit) 0 mg IM STAT PRN; Protocol PRN Reason: Hypoglycemia Protocol Guaifenesin (Robitussin) 100 mg PO Q4H [facility] Last Admin: 04/18/18 07:21 Dose: 100 mg Heparin Sodium (Porcine) (Heparin) 5,000 units SC Q12 [facility] Last Admin: 04/17/18 22:24 Dose: 5,000 units Ceftriaxone Sodium 1 gm/ (Sodium Chloride) 100 mls @ 100 mls/hr IVPB Q12H [facility]; Protocol Last Admin: 04/18/18 01:20 Dose: 100 mls/hr Azithromycin 500 mg/ Sodium (Chloride) 250 mls @ 250 mls/hr IVPB Q24H [facility]; Protocol Last Admin: 04/16/18 12:26 Dose: 250 mls/hr Dextrose (Dextrose 5% In Water 1000 Ml) 1,000 mls @ 0 mls/hr IV .Q0M PRN; Protocol PRN Reason: Hypoglycemia Protocol Insulin Human Regular (Novolin R) 0 unit SC ACHS [facility]; Protocol Last Admin: 04/17/18 22:26 Dose: Not Given Levothyroxine Sodium (Synthroid) 150 mcg PO DAILY@0630 [facility] Last Admin: 04/18/18 07:19 Dose: 150 mcg Methylprednisolone (Solu-Medrol) 40 mg IVP BID [facility] Last Admin: 04/17/18 18:24 Dose: 40 mg Metoprolol Tartrate (Lopressor) 25 mg PO BID [facility] Last Admin: 04/17/18 18:47 Dose: Not Given Pantoprazole Sodium (Protonix Ec Tab) 40 mg PO DAILY [facility] Promethazine HCl (Phenergan Syrup) 12.5 mg PO Q6 PRN PRN Reason: Cough Rosuvastatin Calcium (Crestor) 5 mg PO HS [facility] Last Admin: 04/17/18 22:24 Dose: 5 mg - Labs Labs: 04/18/18 07:15 04/18/18 07:15 PT 12.4 SECONDS (9.7-12.2) H 04/15/18 10:51 INR 1.1 04/15/18 10:51 APTT 28 SECONDS (21-34) 04/15/18 10:51 - Constitutional Appears: No Acute Distress, Chronically Ill - Head Exam Head Exam: ATRAUMATIC, NORMAL INSPECTION - Eye Exam Eye Exam: EOMI, Normal appearance - Neck Exam Neck Exam: Normal Inspection. absent: Tenderness - Respiratory Exam Respiratory Exam: Rhonchi, Wheezes - Cardiovascular Exam Cardiovascular Exam: REGULAR RHYTHM, +S1 - GI/Abdominal Exam GI & Abdominal Exam: Soft. absent: Tenderness - Extremities Exam Extremities Exam: Normal Inspection. absent: Tenderness - Neurological Exam Neurological Exam: CN II-XII Intact. absent: Awake - Skin Skin Exam: Dry, Warm Assessment and Plan (1) COPD exacerbation Status: Acute (2) CHF (congestive heart failure) Status: Acute (3) ESRD (end stage renal disease) Status: Acute (4) Multiple myeloma Status: Acute - Assessment and Plan (Free Text) Plan: Increase UF goal at dialysis Treat bronchitis Monitor low BP
[2018-04-18] MEDS: MethylPREDNISolone 40 mg Vial IVP SCH ×2 (10:25→17:24)
[2018-04-18] MEDS: Pantoprazole 40 mg EC Tab PO SCH (10:25)
[2018-04-18 10:31] LABS: LYMPHOCYTE 6 % (20-40); MONOCYTE 4 % (0-10); NEUTROPHIL 90 % (50-75); PLATELET ESTIMATE NORMAL (NORMAL); TOTAL CELLS COUNTED 100
[2018-04-18 10:32] LABS: OVALOCYTES SLIGHT
--- NOTE | 2018-04-18 12:23 | CP.PCM.PN ---
<Shaquille Wilder - Last Filed: 04/18/18 19:28> Subjective - Date & Time of Evaluation Date of Evaluation: 04/18/18 Time of Evaluation: 09:00 - Subjective Subjective: PGY-[address] Moscoso service Patient is seen and examined at bedside. As per patient, no acute changes overnight. Patient states cough is better but continues to have intermittent cough. Patient has phlegm production, patient states phlegm will often be yellow and other times will be white. Patient continues to eat, ambulates, and is having regular BM. Patient denies fever, chills, chest pain, sob, n/v/d/c urinary symptoms or leg pain. Patient admits to b/l leg swelling. Objective - Vital Signs/Intake and Output Vital Signs (last 24 hours): Temp Pulse Resp BP Pulse Ox 97.9 F 103 H 20 121/57 L 95 04/18/18 08:40 04/18/18 08:40 04/18/18 08:40 04/18/18 10:24 04/18/18 12:00 Intake and Output: 04/18/18 04/18/18 06:59 18:59 Intake Total 240 Balance 240 - Medications Medications: Current Medications Acetaminophen (Tylenol 325mg Tab) 650 mg PO Q6 PRN PRN Reason: Pain, severe (8-10) Acetylcysteine (Acetylcysteine 20%) 4 ml INH RQ6 [facility] Last Admin: 04/18/18 07:56 Dose: Not Given Albuterol/Ipratropium (Duoneb 3 Mg/0.5 Mg (3 Ml) Ud) 3 ml INH RQ6 [facility] Last Admin: 04/18/18 07:56 Dose: 3 ml Artificial Tears (Artificial Tears) 0 ml OU Q8H PRN PRN Reason: Itchiness eye Last Admin: 04/14/18 19:10 Dose: 1 drop Calcium Acetate (Phoslo) 667 mg PO BIDCC [facility] Last Admin: 04/18/18 08:25 Dose: 667 mg Dextrose (Dextrose 50% Inj) 0 ml IV STAT PRN; Protocol PRN Reason: Hypoglycemia Protocol Dextrose (Glutose 15) 0 gm PO ONCE PRN; Protocol PRN Reason: Hypoglycemia Protocol Docusate Sodium (Colace) 100 mg PO TID [facility] Last Admin: 04/17/18 18:24 Dose: 100 mg Ferrous Sulfate (Feosol) 325 mg PO DAILY [facility] Last Admin: 04/17/18 09:52 Dose: Not Given Glipizide (Glucotrol) 10 mg PO ACB [facility] Last Admin: 04/18/18 08:25 Dose: 10 mg Glucagon (Glucagen Diagnostic Kit) 0 mg IM STAT PRN; Protocol PRN Reason: Hypoglycemia Protocol Guaifenesin (Robitussin) 100 mg PO Q4H [facility] Last Admin: 04/18/18 10:24 Dose: 100 mg Heparin Sodium (Porcine) (Heparin) 5,000 units SC Q12 [facility] Last Admin: 04/18/18 10:25 Dose: 5,000 units Ceftriaxone Sodium 1 gm/ (Sodium Chloride) 100 mls @ 100 mls/hr IVPB Q12H [facility]; Protocol Last Admin: 04/18/18 01:20 Dose: 100 mls/hr Azithromycin 500 mg/ Sodium (Chloride) 250 mls @ 250 mls/hr IVPB Q24H [facility]; Protocol Last Admin: 04/16/18 12:26 Dose: 250 mls/hr Dextrose (Dextrose 5% In Water 1000 Ml) 1,000 mls @ 0 mls/hr IV .Q0M PRN; Protocol PRN Reason: Hypoglycemia Protocol Insulin Human Regular (Novolin R) 0 unit SC ACHS [facility]; Protocol Last Admin: 04/18/18 08:25 Dose: 6 units Levothyroxine Sodium (Synthroid) 150 mcg PO DAILY@0630 [facility] Last Admin: 04/18/18 07:19 Dose: 150 mcg Methylprednisolone (Solu-Medrol) 40 mg IVP BID [facility] Last Admin: 04/18/18 10:25 Dose: 40 mg Metoprolol Tartrate (Lopressor) 25 mg PO BID [facility] Last Admin: 04/18/18 10:24 Dose: 25 mg Pantoprazole Sodium (Protonix Ec Tab) 40 mg PO DAILY [facility] Last Admin: 04/18/18 10:25 Dose: 40 mg Promethazine HCl (Phenergan Syrup) 12.5 mg PO Q6 PRN PRN Reason: Cough Rosuvastatin Calcium (Crestor) 5 mg PO HS [facility] Last Admin: 04/17/18 22:24 Dose: 5 mg - Labs Labs: 04/18/18 07:15 04/18/18 07:15 PT 12.4 SECONDS (9.7-12.2) H 04/15/18 10:51 INR 1.1 04/15/18 10:51 APTT 28 SECONDS (21-34) 04/15/18 10:51 - Constitutional Appears: Non-toxic, No Acute Distress - Head Exam Head Exam: ATRAUMATIC, NORMAL INSPECTION, NORMOCEPHALIC - Eye Exam Eye Exam: EOMI, Normal appearance - ENT Exam ENT Exam: Normal Exam - Neck Exam Neck Exam: Normal Inspection - Respiratory Exam Respiratory Exam: Decreased Breath Sounds, Wheezes, NORMAL BREATHING PATTERN. absent: Accessory Muscle Use, Respiratory Distress - Cardiovascular Exam Cardiovascular Exam: REGULAR RHYTHM, +S1, +S2 - GI/Abdominal Exam GI & Abdominal Exam: Soft, Normal Bowel Sounds. absent: Tenderness - Extremities Exam Extremities Exam: Full ROM. absent: Tenderness Additional comments: b/l LE non pitting edema - Back Exam Back Exam: NORMAL INSPECTION - Neurological Exam Neurological Exam: Alert, Awake, Oriented x3 - Psychiatric Exam Psychiatric exam: Normal Affect, Normal Mood - Skin Skin Exam: Dry, Intact, Normal Color, Warm Additional comments: echymosis on left dorsal surface of hand Assessment and Plan - Assessment and Plan (Free Text) Plan: 1. Bronchitis cough and mild sob,has Ronchi Chest xray: mild pulmonary venous congestion, well inflated and clear, no acute findings CT chest w/o contrast - Mild air trapping, no pulmonary mass, suspicious nodule or focal consolidation EKG: NSR WBC: high flu - negative Atypicals - legionella - negative Mycoplasma IgG - negative Echo - pulmonary hypertension .normal EF Blood culture - no growth Meds: - Duonebs rQ6 [facility] - Mucomyst rQ8H [facility] - Rocephin 1gm IVPB BID - Azythromycin 500mg IVPB QDaily - Solumedrol 40mg IV BID - Robitussin 100 Q4H PRN - Start promethazine DM 5ml PO Q6 PRN - on auscultation patient continue to have wheezing and continuous cough - Patient might be fluid overloaded, - Patient to get dialysis tomorrow - Increase UF goal at dialysis, as per Dr Bill Consult dr Mai - pulm - follow up recs 2. ESRD on HD MWF - Dr Bill. Dr Sotelo - nephro consult - Patient might be fluid overloaded, on auscultation patient continue to have wheezing and continuous cough - Patient to get dialysis tomorrow - Increase UF goal at dialysis, as per Dr Bill - Continue home meds Ferous sulfate and calcium acetate 3. 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 HTN - continue checking vitals - Continue home med Lopressor 25mg PO BID 5. DMII Patient tends to refuse insulin continue glipizide - accuchecks ACHS - HbA1c - 6.8 6. Hypothyroidism - levothyroxine 150mcg PO QD - TSH - 0.02 - free T4- 2.70 7. HLD - crestor 5mg PO QD - Lipid panel - within normal limits PPX DVT: SCDs, Heparin 5000 U Q12H GI: protonix 40mg IVP QD HHD, low fat/low cholesterol, 2gm, low CHO tylenol q6 PRN for pain f/u am labs - artificial tears for itchiness in eyes Dispo: Patient continued to cough and wheezing ausculated on physical exam. This could be due to fluid overload. Patient to go for HD tomorrow. We will assess patient tomorrow, patient can be discharged home tomorrow if stable and no changes overnight. Plan discussed with Dr Blanka Wilder, PGY-1 <Miranda Moscoso - Last Filed: 04/18/18 20:07> Objective - Vital Signs/Intake and Output Vital Signs (last 24 hours): Temp Pulse Resp BP Pulse Ox 98.1 F 93 H 20 116/66 96 04/18/18 16:57 04/18/18 16:57 04/18/18 16:57 04/18/18 17:24 04/18/18 16:57 - Medications Medications: Current Medications Acetaminophen (Tylenol 325mg Tab) 650 mg PO Q6 PRN PRN Reason: Pain, severe (8-10) Acetylcysteine (Acetylcysteine 20%) 4 ml INH RQ6 [facility] Last Admin: 04/18/18 19:27 Dose: 4 ml Albuterol/Ipratropium (Duoneb 3 Mg/0.5 Mg (3 Ml) Ud) 3 ml INH RQ6 [facility] Last Admin: 04/18/18 19:27 Dose: 3 ml Artificial Tears (Artificial Tears) 0 ml OU Q8H PRN PRN Reason: Itchiness eye Last Admin: 04/14/18 19:10 Dose: 1 drop Calcium Acetate (Phoslo) 667 mg PO BIDCC [facility] Last Admin: 04/18/18 17:24 Dose: 667 mg Dextrose (Dextrose 50% Inj) 0 ml IV STAT PRN; Protocol PRN Reason: Hypoglycemia Protocol Dextrose (Glutose 15) 0 gm PO ONCE PRN; Protocol PRN Reason: Hypoglycemia Protocol Docusate Sodium (Colace) 100 mg PO TID [facility] Last Admin: 04/18/18 17:24 Dose: 100 mg Ferrous Sulfate (Feosol) 325 mg PO DAILY [facility] Last Admin: 04/18/18 09:20 Dose: 325 mg Glipizide (Glucotrol) 10 mg PO ACB [facility] Last Admin: 04/18/18 08:25 Dose: 10 mg Glucagon (Glucagen Diagnostic Kit) 0 mg IM STAT PRN; Protocol PRN Reason: Hypoglycemia Protocol Guaifenesin (Robitussin) 100 mg PO Q4H [facility] Last Admin: 04/18/18 17:30 Dose: 100 mg Heparin Sodium (Porcine) (Heparin) 5,000 units SC Q12 [facility] Last Admin: 04/18/18 10:25 Dose: 5,000 units Ceftriaxone Sodium 1 gm/ (Sodium Chloride) 100 mls @ 100 mls/hr IVPB Q12H [facility]; Protocol Last Admin: 04/18/18 14:26 Dose: 100 mls/hr Azithromycin 500 mg/ Sodium (Chloride) 250 mls @ 250 mls/hr IVPB Q24H [facility]; Protocol Last Admin: 04/18/18 13:00 Dose: 250 mls/hr Dextrose (Dextrose 5% In Water 1000 Ml) 1,000 mls @ 0 mls/hr IV .Q0M PRN; Protocol PRN Reason: Hypoglycemia Protocol Insulin Human Regular (Novolin R) 0 unit SC ACHS [facility]; Protocol Last Admin: 04/18/18 17:25 Dose: 4 units Levothyroxine Sodium (Synthroid) 150 mcg PO DAILY@0630 [facility] Last Admin: 04/18/18 07:19 Dose: 150 mcg Methylprednisolone (Solu-Medrol) 40 mg IVP BID [facility] Last Admin: 04/18/18 17:24 Dose: 40 mg Metoprolol Tartrate (Lopressor) 25 mg PO BID [facility] Last Admin: 04/18/18 17:24 Dose: 25 mg Pantoprazole Sodium (Protonix Ec Tab) 40 mg PO DAILY [facility] Last Admin: 04/18/18 10:25 Dose: 40 mg Promethazine HCl/Dextromethorphan (Phenergan Dm Syrup) 5 ml PO Q6H PRN PRN Reason: Cough Rosuvastatin Calcium (Crestor) 5 mg PO HS [facility] Last Admin: 04/17/18 22:24 Dose: 5 mg - Labs Labs: 04/18/18 07:15 04/18/18 07:15 PT 12.4 SECONDS (9.7-12.2) H 04/15/18 10:51 INR 1.1 04/15/18 10:51 APTT 28 SECONDS (21-34) 04/15/18 10:51 Attending/Attestation - Attestation I have personally seen and examined this patient.: Yes I have fully participated in the care of the patient.: Yes I have reviewed all pertinent clinical information, including history, physical exam and plan: Yes Notes (Text): Seen and examiend this morning. Patient was coughing and not feeling good.Mild sob On examination she has bilateral wheezing and rhonchi likely fluid overload.Seen by DR Bill. Dr Bill is plaaning to remove more fluids tomorrow to keep her dry.Asked to call for emergency dialysis if she get worse later today. we will continue same dose of steroid and antibiotics .If she improves after dialysis we will discharge her tomorrow d/w patient's brother at bedside
[2018-04-18] MEDS: Azithromycin 500 MG in Sodium Chloride 0.9% 250 ML IVPB SCH (13:00)
--- NOTE | 2018-04-18 17:58 | CP.PCM.PN ---
Subjective - Date & Time of Evaluation Date of Evaluation: 04/18/18 Time of Evaluation: 17:58 - Subjective Subjective: Patient seen and examined Reports dyspnea and cough Objective - Vital Signs/Intake and Output Vital Signs (last 24 hours): Temp Pulse Resp BP Pulse Ox 98.1 F 93 H 20 116/66 96 04/18/18 16:57 04/18/18 16:57 04/18/18 16:57 04/18/18 17:24 04/18/18 16:57 Intake and Output: 04/18/18 04/18/18 06:59 18:59 Intake Total 240 Balance 240 - Medications Medications: Current Medications Acetaminophen (Tylenol 325mg Tab) 650 mg PO Q6 PRN PRN Reason: Pain, severe (8-10) Acetylcysteine (Acetylcysteine 20%) 4 ml INH RQ6 [facility] Last Admin: 04/18/18 13:22 Dose: 4 ml Albuterol/Ipratropium (Duoneb 3 Mg/0.5 Mg (3 Ml) Ud) 3 ml INH RQ6 [facility] Last Admin: 04/18/18 13:22 Dose: 3 ml Artificial Tears (Artificial Tears) 0 ml OU Q8H PRN PRN Reason: Itchiness eye Last Admin: 04/14/18 19:10 Dose: 1 drop Calcium Acetate (Phoslo) 667 mg PO BIDCC [facility] Last Admin: 04/18/18 17:24 Dose: 667 mg Dextrose (Dextrose 50% Inj) 0 ml IV STAT PRN; Protocol PRN Reason: Hypoglycemia Protocol Dextrose (Glutose 15) 0 gm PO ONCE PRN; Protocol PRN Reason: Hypoglycemia Protocol Docusate Sodium (Colace) 100 mg PO TID [facility] Last Admin: 04/18/18 17:24 Dose: 100 mg Ferrous Sulfate (Feosol) 325 mg PO DAILY [facility] Last Admin: 04/18/18 09:20 Dose: 325 mg Glipizide (Glucotrol) 10 mg PO ACB [facility] Last Admin: 04/18/18 08:25 Dose: 10 mg Glucagon (Glucagen Diagnostic Kit) 0 mg IM STAT PRN; Protocol PRN Reason: Hypoglycemia Protocol Guaifenesin (Robitussin) 100 mg PO Q4H [facility] Last Admin: 04/18/18 17:30 Dose: 100 mg Heparin Sodium (Porcine) (Heparin) 5,000 units SC Q12 [facility] Last Admin: 04/18/18 10:25 Dose: 5,000 units Ceftriaxone Sodium 1 gm/ (Sodium Chloride) 100 mls @ 100 mls/hr IVPB Q12H [facility]; Protocol Last Admin: 04/18/18 14:26 Dose: 100 mls/hr Azithromycin 500 mg/ Sodium (Chloride) 250 mls @ 250 mls/hr IVPB Q24H [facility]; Protocol Last Admin: 04/18/18 13:00 Dose: 250 mls/hr Dextrose (Dextrose 5% In Water 1000 Ml) 1,000 mls @ 0 mls/hr IV .Q0M PRN; Protocol PRN Reason: Hypoglycemia Protocol Insulin Human Regular (Novolin R) 0 unit SC ACHS [facility]; Protocol Last Admin: 04/18/18 17:25 Dose: 4 units Levothyroxine Sodium (Synthroid) 150 mcg PO DAILY@0630 [facility] Last Admin: 04/18/18 07:19 Dose: 150 mcg Methylprednisolone (Solu-Medrol) 40 mg IVP BID [facility] Last Admin: 04/18/18 17:24 Dose: 40 mg Metoprolol Tartrate (Lopressor) 25 mg PO BID [facility] Last Admin: 04/18/18 17:24 Dose: 25 mg Pantoprazole Sodium (Protonix Ec Tab) 40 mg PO DAILY [facility] Last Admin: 04/18/18 10:25 Dose: 40 mg Promethazine HCl/Dextromethorphan (Phenergan Dm Syrup) 5 ml PO Q6H PRN PRN Reason: Cough Rosuvastatin Calcium (Crestor) 5 mg PO HS [facility] Last Admin: 04/17/18 22:24 Dose: 5 mg - Labs Labs: 04/18/18 07:15 04/18/18 07:15 PT 12.4 SECONDS (9.7-12.2) H 04/15/18 10:51 INR 1.1 04/15/18 10:51 APTT 28 SECONDS (21-34) 04/15/18 10:51 - Head Exam Head Exam: NORMAL INSPECTION - Eye Exam Eye Exam: Normal appearance - ENT Exam ENT Exam: Mucous Membranes Moist - Respiratory Exam Respiratory Exam: Prolonged Expiratory Phase, Rhonchi, Wheezes - Cardiovascular Exam Cardiovascular Exam: REGULAR RHYTHM, +S1, +S2 - GI/Abdominal Exam GI & Abdominal Exam: Soft, Normal Bowel Sounds - Extremities Exam Extremities Exam: Normal Inspection Assessment and Plan (1) COPD exacerbation Status: Acute (2) ESRD (end stage renal disease) Status: Acute - Assessment and Plan (Free Text) Assessment: Bronchodilators Continue steroids Continue antibiotics Promethazine Hemodialysis as per renal DVT/GI prophylaxis
[2018-04-18] MEDS: Promethazine DM 6.25 mg-15 mg/5 ml Syrup PO PRN (21:19)
[2018-04-19] MEDS: Albuterol-Ipratrop 3 mg / 0.5 (3 ml) UD INH SCH ×3 (01:50→13:55)
[2018-04-19] MEDS: Acetylcysteine 20% Inhal Soln (4ml) INH SCH ×3 (01:50→13:55)
[2018-04-19] MEDS: guaiFENesin 100 mg/5 ml Syrup UD PO SCH ×3 (02:31→10:44)
[2018-04-19 06:48] LABS: LYMPH # 0.9 K/uL (1.0-4.3); MEAN CELL VOLUME 95.7 fL (81.0-99.0); MEAN CORPUSCULAR HEMOGLOBIN 31.1 pg (27.0-31.0); MEAN CORPUSCULAR HGB CONC 32.5 g/dL (33.0-37.0); MEAN PLATELET VOLUME 11.3 fL (7.2-11.7); MONO # 0.9 K/uL (0.0-0.8); MONO % 3.9 % (0.0-10.0); NEUT # 20.3 K/uL (1.8-7.0); NEUT % 92.1 % (50.0-75.0); PLATELET COUNT 202 K/uL (130-400); RBC 3.54 Mil/uL (3.80-5.20); RED CELL DISTRIBUTION WIDTH 14.5 % (11.5-14.5); WHITE BLOOD COUNT 22.1 K/uL (4.8-10.8)
[2018-04-19] MEDS: Levothyroxine 150 MCG TAB PO SCH (07:05)
[2018-04-19] MEDS: Promethazine DM 6.25 mg-15 mg/5 ml Syrup PO PRN ×2 (07:08→13:56)
[2018-04-19 07:11] LABS: ALB/GLOB RATIO 1.5 (1.0-2.1); ALBUMIN 3.9 g/dL (3.5-5.0); CALCIUM 8.8 mg/dl (8.6-10.4)
[2018-04-19] MEDS: (Novolin R) Insulin Human Regular 100 units/ml vial SC SCH ×3 (08:29→16:43)
[2018-04-19 08:35] LABS: LYMPHOCYTE 2 % (20-40); MONOCYTE 3 % (0-10); NEUTROPHIL 95 % (50-75); TOTAL CELLS COUNTED 100
[2018-04-19 08:36] LABS: PLATELET ESTIMATE NORMAL (NORMAL)
[2018-04-19] MEDS: MethylPREDNISolone 40 mg Vial IVP SCH (10:44)
[2018-04-19] MEDS: Pantoprazole 40 mg EC Tab PO SCH (10:44)
[2018-04-19 12:47] VITALS: O2SAT 95
--- NOTE | 2018-04-19 14:15 | CP.PCM.PN ---
Subjective - Date & Time of Evaluation Date of Evaluation: 04/19/18 Time of Evaluation: 14:13 - Subjective Subjective: s/p dialysis now- UF 2600ml feels better overall; mild cough still likely for discharge today will be discharged on ABs and po steroids Objective - Vital Signs/Intake and Output Vital Signs (last 24 hours): Temp Pulse Resp BP Pulse Ox 97.8 F 89 16 146/68 95 04/19/18 12:25 04/19/18 12:25 04/19/18 12:25 04/19/18 12:25 04/19/18 12:25 Intake and Output: 04/19/18 04/19/18 06:59 18:59 Intake Total 420 Balance 420 - Medications Medications: Current Medications Acetaminophen (Tylenol 325mg Tab) 650 mg PO Q6 PRN PRN Reason: Pain, severe (8-10) Acetylcysteine (Acetylcysteine 20%) 4 ml INH RQ6 [facility] Last Admin: 04/19/18 13:55 Dose: 4 ml Albuterol/Ipratropium (Duoneb 3 Mg/0.5 Mg (3 Ml) Ud) 3 ml INH RQ6 [facility] Last Admin: 04/19/18 13:55 Dose: 3 ml Artificial Tears (Artificial Tears) 0 ml OU Q8H PRN PRN Reason: Itchiness eye Last Admin: 04/14/18 19:10 Dose: 1 drop Calcium Acetate (Phoslo) 667 mg PO BIDCC [facility] Last Admin: 04/19/18 08:28 Dose: 667 mg Dextrose (Dextrose 50% Inj) 0 ml IV STAT PRN; Protocol PRN Reason: Hypoglycemia Protocol Dextrose (Glutose 15) 0 gm PO ONCE PRN; Protocol PRN Reason: Hypoglycemia Protocol Docusate Sodium (Colace) 100 mg PO TID [facility] Last Admin: 04/19/18 13:51 Dose: 100 mg Ferrous Sulfate (Feosol) 325 mg PO DAILY [facility] Last Admin: 04/19/18 10:17 Dose: Not Given Glipizide (Glucotrol) 10 mg PO ACB [facility] Last Admin: 04/19/18 08:28 Dose: 10 mg Glucagon (Glucagen Diagnostic Kit) 0 mg IM STAT PRN; Protocol PRN Reason: Hypoglycemia Protocol Guaifenesin (Robitussin) 100 mg PO Q4H [facility] Last Admin: 04/19/18 10:44 Dose: Not Given Heparin Sodium (Porcine) (Heparin) 5,000 units SC Q12 [facility] Last Admin: 04/19/18 10:17 Dose: Not Given Ceftriaxone Sodium 1 gm/ (Sodium Chloride) 100 mls @ 100 mls/hr IVPB Q12H [facility]; Protocol Last Admin: 04/19/18 13:50 Dose: 100 mls/hr Azithromycin 500 mg/ Sodium (Chloride) 250 mls @ 250 mls/hr IVPB Q24H [facility]; Protocol Last Admin: 04/18/18 13:00 Dose: 250 mls/hr Dextrose (Dextrose 5% In Water 1000 Ml) 1,000 mls @ 0 mls/hr IV .Q0M PRN; Protocol PRN Reason: Hypoglycemia Protocol Insulin Human Regular (Novolin R) 0 unit SC ACHS [facility]; Protocol Last Admin: 04/19/18 11:38 Dose: Not Given Levothyroxine Sodium (Synthroid) 150 mcg PO DAILY@0630 [facility] Last Admin: 04/19/18 07:05 Dose: 150 mcg Methylprednisolone (Solu-Medrol) 40 mg IVP BID [facility] Last Admin: 04/19/18 10:44 Dose: Not Given Metoprolol Tartrate (Lopressor) 25 mg PO BID [facility] Last Admin: 04/19/18 10:44 Dose: Not Given Pantoprazole Sodium (Protonix Ec Tab) 40 mg PO DAILY [facility] Last Admin: 04/19/18 10:44 Dose: Not Given Promethazine HCl/Dextromethorphan (Phenergan Dm Syrup) 5 ml PO Q6H PRN PRN Reason: Cough Last Admin: 04/19/18 13:56 Dose: 5 ml Rosuvastatin Calcium (Crestor) 5 mg PO HS [facility] Last Admin: 04/18/18 21:16 Dose: 5 mg - Labs Labs: 04/19/18 06:40 04/19/18 06:40 PT 12.4 SECONDS (9.7-12.2) H 04/15/18 10:51 INR 1.1 04/15/18 10:51 APTT 28 SECONDS (21-34) 04/15/18 10:51 - Constitutional Appears: No Acute Distress, Chronically Ill - Head Exam Head Exam: ATRAUMATIC, NORMAL INSPECTION - Eye Exam Eye Exam: EOMI, Normal appearance - Neck Exam Neck Exam: Normal Inspection. absent: Tenderness - Respiratory Exam Respiratory Exam: Rhonchi, Respiratory Distress - Cardiovascular Exam Cardiovascular Exam: REGULAR RHYTHM, +S1 - GI/Abdominal Exam GI & Abdominal Exam: Soft. absent: Tenderness - Neurological Exam Neurological Exam: Awake, CN II-XII Intact - Skin Skin Exam: Dry, Warm Assessment and Plan (1) COPD exacerbation Status: Acute (2) CHF (congestive heart failure) Status: Acute (3) ESRD (end stage renal disease) Status: Acute (4) Multiple myeloma Status: Acute - Assessment and Plan (Free Text) Plan: PO meds rx as per medicine Advised po fluid restriction to patient Will increase UF goal as outpatient
--- NOTE | 2018-04-19 14:15 | CP.PCM.DIS ---
<Miranda Moscoso - Last Filed: 04/19/18 15:33> Provider - Provider Date of Admission: 04/18/18 14:05 Attending physician: Miranda Moscoso MD Consults: 04/14/18 13:33 Hematology Oncology Consult Routine Comment: Consulting Provider: Kathleen Martinez Consulting Physician: Kathleen Martinez Reason for Consult: Multiple myloma, unspecified weekly IV treatments Nephrology Consult Routine Comment: Consulting Provider: Rolando Bill Consulting Physician: Rolando iBll Reason for Consult: ESRD MWF dialysis 04/14/18 13:34 Pulmonology Consult Routine Comment: Consulting Provider: Lillie Mai Consulting Physician: Lillie Mai Reason for Consult: coughing worsening, r/o COPD, CHF, PNA Hospital Course - Lab Results Lab Results: Micro Results 04/14/18 09:53 Blood Blood Culture - Final NO GROWTH AFTER 5 DAYS 04/14/18 09:53 Blood Gram Stain - Final TEST NOT PERFORMED 04/14/18 09:52 Blood Blood Culture - Final NO GROWTH AFTER 5 DAYS 04/14/18 09:52 Blood Gram Stain - Final TEST NOT PERFORMED 04/14/18 14:10 Sputum Gram Stain - Final 04/14/18 14:10 Sputum Sputum Culture - Final NORMAL ORAL [place] Most Recent Lab Values WBC 22.1 K/uL (4.8-10.8) H 04/19/18 06:40 RBC 3.54 Mil/uL (3.80-5.20) L 04/19/18 06:40 Hgb 11.0 g/dL (11.0-16.0) 04/19/18 06:40 Hct 33.9 % (34.0-47.0) L 04/19/18 06:40 MCV 95.7 fL (81.0-99.0) 04/19/18 06:40 MCH 31.1 pg (27.0-31.0) H 04/19/18 06:40 MCHC 32.5 g/dL (33.0-37.0) L 04/19/18 06:40 RDW 14.5 % (11.5-14.5) 04/19/18 06:40 Plt Count 202 K/uL (130-400) 04/19/18 06:40 MPV 11.3 fL (7.2-11.7) 04/19/18 06:40 Neut % (Auto) 92.1 % (50.0-75.0) H 04/19/18 06:40 Lymph % (Auto) 4.0 % (20.0-40.0) L 04/19/18 06:40 [place] % (Auto) 3.9 % (0.0-10.0) 04/19/18 06:40 Eos % (Auto) 0.0 % (0.0-4.0) 04/19/18 06:40 Baso % (Auto) 0.0 % (0.0-2.0) 04/19/18 06:40 Neut # (Auto) 20.3 K/uL (1.8-7.0) H 04/19/18 06:40 Lymph # (Auto) 0.9 K/uL (1.0-4.3) L 04/19/18 06:40 [place] # (Auto) 0.9 K/uL (0.0-0.8) H 04/19/18 06:40 Eos # (Auto) 0.0 K/uL (0.0-0.7) 04/19/18 06:40 Baso # (Auto) 0.0 K/uL (0.0-0.2) 04/19/18 06:40 Neutrophils % (Manual) 95 % (50-75) H 04/19/18 06:40 Band Neutrophils % 3 % (0-2) H 04/17/18 06:16 Lymphocytes % (Manual) 2 % (20-40) L 04/19/18 06:40 Monocytes % (Manual) 3 % (0-10) 04/19/18 06:40 Platelet Estimate Normal (NORMAL) 04/19/18 06:40 Plt Clumps, EDTA Combination Building Inspector 04/17/18 06:16 Large Platelets Present 04/17/18 06:16 Giant Platelets Present 04/17/18 06:16 RBC Morphology Normal 04/19/18 06:40 Polychromasia Slight 04/16/18 06:46 Hypochromasia (manual) Slight 04/14/18 09:18 Anisocytosis (manual) Slight 04/16/18 06:46 Macrocytosis (manual) Slight 04/16/18 06:46 Ovalocytes Slight 04/18/18 07:15 PT 12.4 SECONDS (9.7-12.2) H 04/15/18 10:51 INR 1.1 04/15/18 10:51 APTT 28 SECONDS (21-34) 04/15/18 10:51 Sodium 139 mmol/L (132-148) 04/19/18 06:40 Potassium 4.4 mmol/L (3.6-5.2) 04/19/18 06:40 Chloride 99 mmol/L (98-107) 04/19/18 06:40 Carbon Dioxide 22 mmol/L (22-30) 04/19/18 06:40 Anion Gap 22 (10-20) H 04/19/18 06:40 BUN 78 mg/dL (7-17) H 04/19/18 06:40 Creatinine 4.6 mg/dL (0.7-1.2) H 04/19/18 06:40 Est GFR ( Amer) 11 04/19/18 06:40 Est GFR (Non-Af Amer) 9 04/19/18 06:40 POC Glucose (mg/dL) 97 mg/dL (65-110) 04/19/18 11:41 Random Glucose 288 mg/dL (65-105) H D 04/19/18 06:40 Hemoglobin A1c 6.8 % (4.2-6.5) H 04/15/18 07:05 Calcium 8.8 mg/dl (8.6-10.4) 04/19/18 06:40 Total Bilirubin 0.3 mg/dL (0.2-1.3) 04/19/18 06:40 AST 22 U/L (14-36) 04/19/18 06:40 ALT 25 U/L (9-52) 04/19/18 06:40 Alkaline Phosphatase 86 U/L (38-126) 04/19/18 06:40 Troponin I 0.0310 ng/mL (0.00-0.120) 04/14/18 09:18 Total Protein 6.4 g/dL (6.3-8.3) 04/19/18 06:40 Albumin 3.9 g/dL (3.5-5.0) 04/19/18 06:40 Globulin 2.6 gm/dL (2.2-3.9) 04/19/18 06:40 Albumin/Globulin Ratio 1.5 (1.0-2.1) 04/19/18 06:40 Triglycerides 74 mg/dL (0-149) D 04/15/18 07:05 Cholesterol 116 mg/dL (0-199) 04/15/18 07:05 LDL Cholesterol Direct 61 mg/dL (0-129) 04/15/18 07:05 HDL Cholesterol 50 mg/dL (30-70) 04/15/18 07:05 Free T4 2.76 ng/dL (0.78-2.19) H 04/15/18 07:05 Total T3 1.01 nmol/L (1.49-2.60) L 04/15/18 07:05 TSH 3rd Generation < 0.02 mIU/L (0.46-4.68) L 04/15/18 07:05 Urine Color Yellow (YELLOW) 04/15/18 14:11 Urine Clarity Hazy (Clear) 04/15/18 14:11 Urine pH 5.0 (5.0-8.0) 04/15/18 14:11 Ur Specific Roy 1.014 (1.003-1.030) 04/15/18 14:11 Urine Protein Negative mg/dL (NEGATIVE) 04/15/18 14:11 Urine Glucose (UA) Normal mg/dL (Normal) 04/15/18 14:11 Urine Ketones Negative mg/dL (NEGATIVE) 04/15/18 14:11 Urine Blood Negative (NEGATIVE) 04/15/18 14:11 Urine Nitrate Negative (NEGATIVE) 04/15/18 14:11 Urine Bilirubin Negative (NEGATIVE) 04/15/18 14:11 Urine Urobilinogen Normal mg/dL (0.2-1.0) 04/15/18 14:11 Ur Leukocyte Esterase Neg Roman/uL (Negative) 04/15/18 14:11 Urine WBC (Auto) 1 /hpf (0-5) 04/15/18 14:11 Urine RBC (Auto) < 1 /hpf (0-3) 04/15/18 14:11 Ur Squamous Epith Cells < 1 /hpf (0-5) 04/15/18 14:11 Urine Bacteria Rare (<OCC) 04/15/18 14:11 Influenza Typ A,B (EIA) Negative for flu a/b (NEGATIVE) 04/14/18 09:18 Ur L.pneumophila Ag Negative (NEGATIVE) 04/14/18 19:37 Mycoplasma pneumon IgM Negative (NEGATIVE) 04/14/18 19:37 Ur Strep pneumoniae Ag Detected (Not Detected) H 04/14/18 19:37 Discharge Plan - Discharge Medications Prescriptions: Acyclovir [Zovirax] 200 mg PO Q12H 30 Days #60 cap Methylprednisolone [Medrol Dose Pack (21 tabs)] 4 mg PO DAILY #21 mg Moxifloxacin [Avelox] 400 mg PO DAILY 5 Days #5 tab Promethazine DM [Phenergan DM Syrup] 1 tbs PO Q6H PRN 3 Days ml PRN Reason: Cough - Follow Up Plan Condition: FAIR Disposition: HOME/ ROUTINE Instructions: Dialysis Diet , Acyclovir (Systemic), Acute Bronchitis, Adult (DC), Heart Failure, Adult (DC), Moxifloxacin (Systemic), Exacerbation of COPD (DC), Methylprednisolone, Promethazine, End Stage Kidney Disease (DC) Additional Instructions: Patient is clear for discharge per Dr. Moscoso. Patient is being given antibiotic called avalox 400mg, to take one tablet via mouth once a day for 5 days. Patient will also receive a script for Medrol dose pack to taper off steroids. Patient will also be getting a scrip for Promethazine syrup to take every 6 hours 1 tablespoon as needed for cough. Patient is given a script for acyclovir 200mg per mouth to take twice a day. Please follow up with you primary doctor Cathi next week, please make appointment with him Please follow up with your Heme/onc doctor Juan next sunday, as well as pulm doctor Sergei in one week from being discharge Continue your hemodialysis outpatient with your HD center, your next session is sunday04/22/18. Continue to follow up with dining room host/hostess Dr Bill at the infusion center She can resume all of her home medications as prior to admission. The cough may linger for a few weeks, but if it is concerning, or other symptoms persist, please come back to the ED. This plan was discussed with the patient who understood and agreed. Referrals: Lillie Mai MD [Staff Provider] - Kathleen Martinez MD [Staff Provider] - Attending/Attestation - Attestation I have personally seen and examined this patient.: Yes I have fully participated in the care of the patient.: Yes I have reviewed all pertinent clinical information, including history, physical exam and plan: Yes Notes (Text): Patient 04/19/18 15:33 <Shaquille Wilder - Last Filed: 04/19/18 20:05> Provider - Provider Date of Admission: 04/18/18 14:05 Attending physician: Miranda Moscoso MD Consults: 04/14/18 13:33 Hematology Oncology Consult Routine Comment: Consulting Provider: Kathleen Martinez Consulting Physician: Kathleen Martinez Reason for Consult: Multiple myloma, unspecified weekly IV treatments Nephrology Consult Routine Comment: Consulting Provider: Rolando Bill Consulting Physician: Rolando Bill Reason for Consult: ESRD MWF dialysis 04/14/18 13:34 Pulmonology Consult Routine Comment: Consulting Provider: Lillie Mai Consulting Physician: Lillie Mai Reason for Consult: coughing worsening, r/o COPD, CHF, PNA Time Spent in preparation of Discharge (in minutes): 180 Diagnosis - Discharge Diagnosis (1) Streptococcus pneumoniae Status: Acute (2) Fluid overload, unspecified Status: Acute (3) Dyspnea Status: Acute (4) ESRD (end stage renal disease) Status: Acute (5) Hyperlipemia Status: Acute (6) Multiple myeloma Status: Acute (7) HTN (hypertension) Status: Chronic (8) Hypothyroidism Status: Chronic Hospital Course - Lab Results Lab Results: Micro Results 04/14/18 09:53 Blood Blood Culture - Final NO GROWTH AFTER 5 DAYS 04/14/18 09:53 Blood Gram Stain - Final TEST NOT PERFORMED 04/14/18 09:52 Blood Blood Culture - Final NO GROWTH AFTER 5 DAYS 04/14/18 09:52 Blood Gram Stain - Final TEST NOT PERFORMED 04/14/18 14:10 Sputum Gram Stain - Final 04/14/18 14:10 Sputum Sputum Culture - Final NORMAL ORAL [place] Most Recent Lab Values WBC 22.1 K/uL (4.8-10.8) H 04/19/18 06:40 RBC 3.54 Mil/uL (3.80-5.20) L 04/19/18 06:40 Hgb 11.0 g/dL (11.0-16.0) 04/19/18 06:40 Hct 33.9 % (34.0-47.0) L 04/19/18 06:40 MCV 95.7 fL (81.0-99.0) 04/19/18 06:40 MCH 31.1 pg (27.0-31.0) H 04/19/18 06:40 MCHC 32.5 g/dL (33.0-37.0) L 04/19/18 06:40 RDW 14.5 % (11.5-14.5) 04/19/18 06:40 Plt Count 202 K/uL (130-400) 04/19/18 06:40 MPV 11.3 fL (7.2-11.7) 04/19/18 06:40 Neut % (Auto) 92.1 % (50.0-75.0) H 04/19/18 06:40 Lymph % (Auto) 4.0 % (20.0-40.0) L 04/19/18 06:40 [place] % (Auto) 3.9 % (0.0-10.0) 04/19/18 06:40 Eos % (Auto) 0.0 % (0.0-4.0) 04/19/18 06:40 Baso % (Auto) 0.0 % (0.0-2.0) 04/19/18 06:40 Neut # (Auto) 20.3 K/uL (1.8-7.0) H 04/19/18 06:40 Lymph # (Auto) 0.9 K/uL (1.0-4.3) L 04/19/18 06:40 [place] # (Auto) 0.9 K/uL (0.0-0.8) H 04/19/18 06:40 Eos # (Auto) 0.0 K/uL (0.0-0.7) 04/19/18 06:40 Baso # (Auto) 0.0 K/uL (0.0-0.2) 04/19/18 06:40 Neutrophils % (Manual) 95 % (50-75) H 04/19/18 06:40 Band Neutrophils % 3 % (0-2) H 04/17/18 06:16 Lymphocytes % (Manual) 2 % (20-40) L 04/19/18 06:40 Monocytes % (Manual) 3 % (0-10) 04/19/18 06:40 Platelet Estimate Normal (NORMAL) 04/19/18 06:40 Plt Clumps, EDTA Combination Building Inspector 04/17/18 06:16 Large Platelets Present 04/17/18 06:16 Giant Platelets Present 04/17/18 06:16 RBC Morphology Normal 04/19/18 06:40 Polychromasia Slight 04/16/18 06:46 Hypochromasia (manual) Slight 04/14/18 09:18 Anisocytosis (manual) Slight 04/16/18 06:46 Macrocytosis (manual) Slight 04/16/18 06:46 Ovalocytes Slight 04/18/18 07:15 PT 12.4 SECONDS (9.7-12.2) H 04/15/18 10:51 INR 1.1 04/15/18 10:51 APTT 28 SECONDS (21-34) 04/15/18 10:51 Sodium 139 mmol/L (132-148) 04/19/18 06:40 Potassium 4.4 mmol/L (3.6-5.2) 04/19/18 06:40 Chloride 99 mmol/L (98-107) 04/19/18 06:40 Carbon Dioxide 22 mmol/L (22-30) 04/19/18 06:40 Anion Gap 22 (10-20) H 04/19/18 06:40 BUN 78 mg/dL (7-17) H 04/19/18 06:40 Creatinine 4.6 mg/dL (0.7-1.2) H 04/19/18 06:40 Est GFR ( Amer) 11 04/19/18 06:40 Est GFR (Non-Af Amer) 9 04/19/18 06:40 POC Glucose (mg/dL) 97 mg/dL (65-110) 04/19/18 11:41 Random Glucose 288 mg/dL (65-105) H D 04/19/18 06:40 Hemoglobin A1c 6.8 % (4.2-6.5) H 04/15/18 07:05 Calcium 8.8 mg/dl (8.6-10.4) 04/19/18 06:40 Total Bilirubin 0.3 mg/dL (0.2-1.3) 04/19/18 06:40 AST 22 U/L (14-36) 04/19/18 06:40 ALT 25 U/L (9-52) 04/19/18 06:40 Alkaline Phosphatase 86 U/L (38-126) 04/19/18 06:40 Troponin I 0.0310 ng/mL (0.00-0.120) 04/14/18 09:18 Total Protein 6.4 g/dL (6.3-8.3) 04/19/18 06:40 Albumin 3.9 g/dL (3.5-5.0) 04/19/18 06:40 Globulin 2.6 gm/dL (2.2-3.9) 04/19/18 06:40 Albumin/Globulin Ratio 1.5 (1.0-2.1) 04/19/18 06:40 Triglycerides 74 mg/dL (0-149) D 04/15/18 07:05 Cholesterol 116 mg/dL (0-199) 04/15/18 07:05 LDL Cholesterol Direct 61 mg/dL (0-129) 04/15/18 07:05 HDL Cholesterol 50 mg/dL (30-70) 04/15/18 07:05 Free T4 2.76 ng/dL (0.78-2.19) H 04/15/18 07:05 Total T3 1.01 nmol/L (1.49-2.60) L 04/15/18 07:05 TSH 3rd Generation < 0.02 mIU/L (0.46-4.68) L 04/15/18 07:05 Urine Color Yellow (YELLOW) 04/15/18 14:11 Urine Clarity Hazy (Clear) 04/15/18 14:11 Urine pH 5.0 (5.0-8.0) 04/15/18 14:11 Ur Specific Roy 1.014 (1.003-1.030) 04/15/18 14:11 Urine Protein Negative mg/dL (NEGATIVE) 04/15/18 14:11 Urine Glucose (UA) Normal mg/dL (Normal) 04/15/18 14:11 Urine Ketones Negative mg/dL (NEGATIVE) 04/15/18 14:11 Urine Blood Negative (NEGATIVE) 04/15/18 14:11 Urine Nitrate Negative (NEGATIVE) 04/15/18 14:11 Urine Bilirubin Negative (NEGATIVE) 04/15/18 14:11 Urine Urobilinogen Normal mg/dL (0.2-1.0) 04/15/18 14:11 Ur Leukocyte Esterase Neg Roman/uL (Negative) 04/15/18 14:11 Urine WBC (Auto) 1 /hpf (0-5) 04/15/18 14:11 Urine RBC (Auto) < 1 /hpf (0-3) 04/15/18 14:11 Ur Squamous Epith Cells < 1 /hpf (0-5) 04/15/18 14:11 Urine Bacteria Rare (<OCC) 04/15/18 14:11 Influenza Typ A,B (EIA) Negative for flu a/b (NEGATIVE) 04/14/18 09:18 Ur L.pneumophila Ag Negative (NEGATIVE) 04/14/18 19:37 Mycoplasma pneumon IgM Negative (NEGATIVE) 04/14/18 19:37 Ur Strep pneumoniae Ag Detected (Not Detected) H 04/14/18 19:37 - Hospital Course Hospital Course: On Admission: Patient is 83 year old [place] Female with pmhx of multiple myeloma (no longer on chemotherapy, last 03/03), ESRD MWF, HTN, hypothyroidism, HLD, DMII that came to ER today for worsening cough with yellowish sputum that started about 1 1/2 weeks ago. Patient had one episode similar to this last year and was hospitalized for a week. Patient says cough comes and goes, gets worse at nightime. Patient visited her PMD Dr Winkler recently, who gave her Zpack and cough syrup promethazine, but patient states it did not help. Patient feels as if something is clogged in her throat, believes it is phlegm. Patient admits to palpitations that come and go, and subjective fevers in previous days, but not currently. Patient states that she had sick contact with other patient that were coughing at her dialysis center. Patient denies any recent sickness or travel. Patient has left lower quadrant pain and headaches when coughing. Patient denies fevers, chills, sore throat, abdominal pain, nausea, vomiting, diarrhea or constipation, leg swelling or pain or urinary complaint On hospitalization: Patient admitted for evaluation of worsening cough, to r/o PNA, COPD vs CHF. Chest xray: mild pulmonary venous congestion, well inflated and clear, no acute findings. WBC 13.2 with mild left shift, CT chest w/o contrast shows Mild air trapping, no pulmonary mass, suspicious nodule or focal consolidation. legionella - negative. Mycoplasma IgG - negative. Urine strep pneumoniae Ag positive. Flu negative. U/a negative. blood cultures show no growth. Patient was given the following abx, Rocephin 1gm IVPB BID, Azythromycin 500mg IVPB QDaily. Patient also received the following medications Duonebs rQ6 MARIBETH, Mucomyst rQ8H MAR[place], Solumedrol 40mg IV BID, Robitussin 100 Q4H PRN, Promethazine DM Q6 PRN for cough. Dr Reynolds cryptographer consulted, as patient follows Dr Reynolds outpatient. Dr Martinez consulted for hx of multiple myeloma. Patient to continue acyclovir 200mg PO BID as per Dr Martinez. Dr Bill Trip Follower consulted. Patient received three sessions of HD under Dr Bill's management. Symptoms could be also associated to patient being fluid overloaded. As per Dr Bill, Sunday HD session's UF goal was increased at dialysis. for Hx of Htn, continued home lopressor 25 mg PO BID, for hx of DMII, patient was originally placed on insulin lantus 10 U, and ISS, but patient refused to get insulin. Originally, glipizide held due to ESRD, glipizide resumed, and lantus discontinued to continue manage pt hx of DM. for hx of hypothyroidism, patient restarted on levothyroxine 150mcg po QD, and hx of hyperlipidemia, patient started on crestor 5mg PO QD. SCDS, heparing 5000 U Q12 for DVT prophylaxis, protonix 40 mg IVP QD. On discharge: Patient is clear for discharge per Dr. Moscoso. Patient is being given antibiotic called avalox 400mg, to take one tablet via mouth once a day for 5 days. Patient will also receive a script for Medrol dose pack to taper off steroids. Patient will also be getting a scrip for Promethazine syrup to take every 6 hours 1 tablespoon as needed for cough. Patient is given a script for acyclovir 200mg per mouth to take twice a day. Please follow up with you primary doctor Cathi next week, please make appointment with him. Please follow up with your Heme/onc doctor Juan next sunday, as well as pulm doctor Sergei in one week from being discharge. Continue your hemodialysis outpatient with your HD center, your next session is sunday04/22/18. Continue to follow up with dining room host/hostess Dr Bill at the infusion center. She can resume all of her home medications as prior to admission. The cough may linger for a few weeks, but if it is concerning, or other symptoms persist, please come back to the ED. This plan was discussed with the patient who understood and agreed - Date & Time of H&P Date of H&P: 04/14/18 Time of H&P: 13:05 Discharge Exam - Head Exam Head Exam: NORMAL INSPECTION - Eye Exam Eye Exam: EOMI, Normal appearance - ENT Exam ENT Exam: Normal Exam - Respiratory Exam Respiratory Exam: Rhonchi, NORMAL BREATHING PATTERN. absent: Accessory Muscle Use, Rales, Wheezes, Respiratory Distress - Cardiovascular Exam Cardiovascular Exam: REGULAR RHYTHM, +S1, +S2 - GI/Abdominal Exam GI & Abdominal Exam: Normal Bowel Sounds, Soft, Unremarkable - Extremities Exam Extremities exam: full ROM - Back Exam Back exam: FULL ROM, NORMAL INSPECTION. absent: tenderness - Neurological Exam Neurological exam: Alert, CN II-XII Intact, Normal Gait, Oriented x3 - Psychiatric Exam Psychiatric exam: Normal Affect, Normal Mood - Skin Skin Exam: Dry, Warm Additional comments: left dorsal hand echymosis - from venipucture.
--- NOTE | 2018-04-19 15:31 | CP.PCM.PN ---
Subjective - Date & Time of Evaluation Date of Evaluation: 04/19/18 Time of Evaluation: 15:29 - Subjective Subjective: Pt is seen and examined S/P HD and reports improved dyspnea Objective - Vital Signs/Intake and Output Vital Signs (last 24 hours): Temp Pulse Resp BP Pulse Ox 97.8 F 89 16 146/68 95 04/19/18 12:25 04/19/18 12:25 04/19/18 12:25 04/19/18 12:25 04/19/18 12:25 Intake and Output: 04/19/18 04/19/18 06:59 18:59 Intake Total 420 Balance 420 - Medications Medications: Current Medications Acetaminophen (Tylenol 325mg Tab) 650 mg PO Q6 PRN PRN Reason: Pain, severe (8-10) Acetylcysteine (Acetylcysteine 20%) 4 ml INH RQ6 [facility] Last Admin: 04/19/18 13:55 Dose: 4 ml Albuterol/Ipratropium (Duoneb 3 Mg/0.5 Mg (3 Ml) Ud) 3 ml INH RQ6 [facility] Last Admin: 04/19/18 13:55 Dose: 3 ml Artificial Tears (Artificial Tears) 0 ml OU Q8H PRN PRN Reason: Itchiness eye Last Admin: 04/14/18 19:10 Dose: 1 drop Calcium Acetate (Phoslo) 667 mg PO BIDCC [facility] Last Admin: 04/19/18 08:28 Dose: 667 mg Dextrose (Dextrose 50% Inj) 0 ml IV STAT PRN; Protocol PRN Reason: Hypoglycemia Protocol Dextrose (Glutose 15) 0 gm PO ONCE PRN; Protocol PRN Reason: Hypoglycemia Protocol Docusate Sodium (Colace) 100 mg PO TID [facility] Last Admin: 04/19/18 13:51 Dose: 100 mg Ferrous Sulfate (Feosol) 325 mg PO DAILY [facility] Last Admin: 04/19/18 10:17 Dose: Not Given Glipizide (Glucotrol) 10 mg PO ACB [facility] Last Admin: 04/19/18 08:28 Dose: 10 mg Glucagon (Glucagen Diagnostic Kit) 0 mg IM STAT PRN; Protocol PRN Reason: Hypoglycemia Protocol Guaifenesin (Robitussin) 100 mg PO Q4H [facility] Last Admin: 04/19/18 10:44 Dose: Not Given Heparin Sodium (Porcine) (Heparin) 5,000 units SC Q12 [facility] Last Admin: 04/19/18 10:17 Dose: Not Given Ceftriaxone Sodium 1 gm/ (Sodium Chloride) 100 mls @ 100 mls/hr IVPB Q12H [facility]; Protocol Last Admin: 04/19/18 13:50 Dose: 100 mls/hr Azithromycin 500 mg/ Sodium (Chloride) 250 mls @ 250 mls/hr IVPB Q24H MARIBETH; Protocol Last Admin: 04/18/18 13:00 Dose: 250 mls/hr Dextrose (Dextrose 5% In Water 1000 Ml) 1,000 mls @ 0 mls/hr IV .Q0M PRN; Protocol PRN Reason: Hypoglycemia Protocol Insulin Human Regular (Novolin R) 0 unit SC ACHS [facility]; Protocol Last Admin: 04/19/18 11:38 Dose: Not Given Levothyroxine Sodium (Synthroid) 150 mcg PO DAILY@0630 [facility] Last Admin: 04/19/18 07:05 Dose: 150 mcg Methylprednisolone (Solu-Medrol) 40 mg IVP BID [facility] Last Admin: 04/19/18 10:44 Dose: Not Given Metoprolol Tartrate (Lopressor) 25 mg PO BID [facility] Last Admin: 04/19/18 10:44 Dose: Not Given Pantoprazole Sodium (Protonix Ec Tab) 40 mg PO DAILY [facility] Last Admin: 04/19/18 10:44 Dose: Not Given Promethazine HCl/Dextromethorphan (Phenergan Dm Syrup) 5 ml PO Q6H PRN PRN Reason: Cough Last Admin: 04/19/18 13:56 Dose: 5 ml Rosuvastatin Calcium (Crestor) 5 mg PO HS [facility] Last Admin: 04/18/18 21:16 Dose: 5 mg - Labs Labs: 04/19/18 06:40 04/19/18 06:40 PT 12.4 SECONDS (9.7-12.2) H 04/15/18 10:51 INR 1.1 04/15/18 10:51 APTT 28 SECONDS (21-34) 04/15/18 10:51 - Head Exam Head Exam: NORMAL INSPECTION - Eye Exam Eye Exam: Normal appearance - ENT Exam ENT Exam: Mucous Membranes Moist - Respiratory Exam Respiratory Exam: Rales, Rhonchi, Wheezes - Cardiovascular Exam Cardiovascular Exam: REGULAR RHYTHM, +S1, +S2 - GI/Abdominal Exam GI & Abdominal Exam: Soft, Normal Bowel Sounds - Neurological Exam Neurological Exam: Alert, Oriented x3 Assessment and Plan (1) COPD exacerbation Status: Acute (2) ESRD (end stage renal disease) Status: Acute - Assessment and Plan (Free Text) Plan: Bronchodilators OK to discharge pt from pulmonary prospective on another 5 days of floroquinolones and medrol dose back Promethazine Patient is advised to follow up in 1 week
--- NOTE | 2018-04-19 15:35 | PQF ---
PROVIDER RESPONSE TEXT: Patient doesn't have CHF. Shortness of breath is likely due to bronchitis and congestion due to fluid overload. REVIEWER QUERY TEXT: CHF Acuity and Type Congestive Heart Failure is documented in the Medical Record. Please document the type and acuity (in cludes probable or suspected) Such as: Also please document the underlying cause of the CHF (includes probable or suspected) The patient's Clinical Indicators include: ?83 year old female, worsening productive cough associated with subjective fever for 2 weeks". PMHX: Atrial Fibrillation, CHF, HTN. Respiratory Exam: Rales (diffuse B/L), Wheezes (diffuse, B/L). Cardiovascular Exam: Tachycardia, REGULAR RHYTHM, +S1, +S2. CXR: There is mild pulmonary venous congestion. There is mild cardiomegaly. There are aortic atherosclerotic calcifications present. ECHO: There is mild to moderate concentric LV hypertrophy. The LV is hyperdynamic. There is normal LV segme ntal wall motion. Transmitral Doppler flow pattern is Grade I-abnormal relaxation pattern. Mitral reg urgitation is mild to moderate. There is mild tricuspid regurgitation. There is moderate pulmonary hy pertension. Clinical finding Matching with Diastolic CHF, Please consider verify and specify documentation includ ing acuity, if agree. Query created by: Omar Sequeira on 04/19/2018 1:49 PM Electronically signed by: Miranda Moscoso MD 04/19/2018 3:32 PM
[2018-04-19 17:23] VITALS: BP 115/67; PULSE 95; RESP 20; TEMP 98.2
== END 2018-04-19 17:34 | disposition home or self-care (01) | DRG 190 ==
LOC: C.ER 08:06 → C.9E 11:19 → C.6T 12:14 → C.ER 04-18 08:06 → C.9E 04-18 11:19 → C.6T 04-18 12:14 → OBSVTOIN 04-18 14:05
PROVIDERS: ADMIT Internal Medicine; ATTEND Internal Medicine
PROC: 5A1D70Z Performance of Urinary Filtration, Intermittent, Less than 6 Hours Per Day (ICD-10-PCS; principal; 2018-04-18)
DX: J44.1 Chronic obstructive pulmonary disease with (acute) exacerbation (principal); N18.6 End stage renal disease; I13.2 Hypertensive heart and chronic kidney disease with heart failure and with stage 5 chronic kidney disease, or end stage renal disease; C90.01 Multiple myeloma in remission; E78.5 Hyperlipidemia, unspecified; I27.20 Pulmonary hypertension, unspecified; I48.91 Unspecified atrial fibrillation; I50.9 Heart failure, unspecified; Z79.4 Long term (current) use of insulin; Z87.891 Personal history of nicotine dependence; Z99.2 Dependence on renal dialysis; E03.9 Hypothyroidism, unspecified; D64.9 Anemia, unspecified; D72.828 Other elevated white blood cell count; E11.22 Type 2 diabetes mellitus with diabetic chronic kidney disease; Z79.84 Long term (current) use of oral hypoglycemic drugs; B95.3 Streptococcus pneumoniae as the cause of diseases classified elsewhere

== ENCOUNTER 2018-05-01 12:08 | Inpatient (IN) | payer MEDICARE ==
[2018-05-01 12:09] VITALS: BMI 29.7
[2018-05-01 13:01] LABS: BASO # 0.1 K/uL (0.0-0.2); BASO % 0.5 % (0.0-2.0); EOS % 0.2 % (0.0-4.0); HEMOGLOBIN 11.4 g/dL (11.0-16.0); LYMPH # 0.5 K/uL (1.0-4.3); LYMPH % 3.1 % (20.0-40.0); MEAN CELL VOLUME 93.9 fL (81.0-99.0); MEAN CORPUSCULAR HEMOGLOBIN 31.1 pg (27.0-31.0); MEAN CORPUSCULAR HGB CONC 33.2 g/dL (33.0-37.0); MONO # 0.8 K/uL (0.0-0.8); MONO % 5.2 % (0.0-10.0); NEUT # 14.4 K/uL (1.8-7.0); PLATELET COUNT 115 K/uL (130-400); RBC 3.68 Mil/uL (3.80-5.20); RED CELL DISTRIBUTION WIDTH 14.2 % (11.5-14.5); WHITE BLOOD COUNT 15.8 K/uL (4.8-10.8)
[2018-05-01 13:22] LABS: ALB/GLOB RATIO 1.4 (1.0-2.1); ALBUMIN 3.8 g/dL (3.5-5.0); ALT/SGPT 39 U/L (9-52); AST/SGOT 33 U/L (14-36); BLOOD UREA NITROGEN 20 mg/dL (7-17); CALCIUM 8.6 mg/dl (8.6-10.4); GFR NON-AFRICAN AMERICAN 24
--- NOTE | 2018-05-01 13:22 | RAD ---
Date of service: 05/01/2018 HISTORY: SOB COMPARISON: 04/17/2018 TECHNIQUE: Chest PA and lateral FINDINGS: LUNGS: No active pulmonary disease. PLEURA: No significant pleural effusion identified. No pneumothorax apparent. CARDIOVASCULAR: No aortic atherosclerotic calcification present. Normal heart size. Mitral annular calcification noted. No congestive change. Left central venous infusion port. OSSEOUS STRUCTURES: No significant abnormalities. VISUALIZED UPPER ABDOMEN: Normal. OTHER FINDINGS: None. IMPRESSION: No active disease.
[2018-05-01 13:24] LABS: BANDS 1 % (0-2); LYMPHOCYTE 3 % (20-40); MONOCYTE 3 % (0-10); NEUTROPHIL 93 % (50-75); TOTAL CELLS COUNTED 100
[2018-05-01 13:26] LABS: ANISOCYTOSIS SLIGHT; HYPOCHROMIC SLIGHT; PLATELET ESTIMATE SLIGHTLY DECREASED (NORMAL); POIKILOCYTOSIS SLIGHT
--- NOTE | 2018-05-01 13:32 | C.PDOC ---
History Of Present Illness 83 y/o female, with history of COPD, CHF, ESRD, A-fib, and anemia, comes in complaining of SOB at all times for the past 3 days, associated with chills and a productive cough since yesterday. Patient is on dialysis Sunday, Sunday, Sunday and had completed dialysis today. States she has SOB at rest and when ambulating. She notes she has home O2 which she takes at night but she recently had to use it during the day. Patient denies fever, nausea, vomiting, or chest pain. Patients also reports that her ankles were swollen last night but has been resolved. Patient is up to date with flu vaccination and was recently admitted for COPD exacerbation on 04/14/18 and discharged on 04/19/18 on avelox. According to , patient is not on steroids. Time Seen by Provider: 05/01/18 12:26 Chief Complaint (Nursing): Shortness Of Breath History Per: Patient History/Exam Limitations: no limitations Onset/Duration Of Symptoms: Days Current Symptoms Are (Timing): Still Present Past Medical History Reviewed: Historical Data, Nursing Documentation, Vital Signs Vital Signs: Last Vital Signs Temp 100.9 F H 05/01/18 13:10 Pulse 107 H 05/01/18 12:15 Resp 18 05/01/18 12:57 BP 115/62 05/01/18 12:15 Pulse Ox 89 L 05/01/18 12:15 - Medical History PMH: Anemia, Arthritis, Atrial Fibrillation, Cardia Arrhythmia, CHF, HTN, Hypercholesterolemia, Hyperlipidemia, Hypothyroidism, End Stage Renal Disease, Chronic Kidney Disease Surgical History: Endoscopy - [facility] Procedures (04/18/18) EXCISION OF STOMACH, ENDO, DIAGN (06/28/16) EXTRACTION OF ILIAC BONE MARROW, PERC APPROACH, DIAGN (12/25/16) FLUOROSCOPY OF SUP VENA CAVA USING L OSM CONTRAST, GUIDANCE (12/25/16) INSERT VAD RESERVOIR IN CHEST SUBCU/FASCIA, OPEN (12/25/16) INSERTION OF INFUSION DEV INTO SUP VENA CAVA, PERC APPROACH (12/25/16) INSPECTION OF LOWER INTESTINAL TRACT, ENDO (06/28/16) INSPECTION OF UPPER INTESTINAL TRACT, ENDO (09/25/16) INTRODUCE OTH ANTINEOPLASTIC IN CENTRAL VEIN, PERC (12/25/16) PERFORMANCE OF URINARY FILTRATION, MULTIPLE (12/25/16) MANDAEN OF CARDIAC RHYTHM, SINGLE (12/25/16) TRANSFUSE NONAUT RED BLOOD CELLS IN PERIPH VEIN, PERC (12/25/16) Family History: States: No Known Family Hx - Social History Hx Tobacco Use: No Hx Alcohol Use: No Hx Substance Use: No - Immunization History Hx Tetanus Toxoid Vaccination: Yes Hx Influenza Vaccination: Yes Hx Pneumococcal Vaccination: Yes Review Of Systems Except As Marked, All Systems Reviewed And Found Negative. Constitutional: Positive for: Chills Cardiovascular: Negative for: Chest Pain Respiratory: Positive for: Cough, Shortness of Breath Gastrointestinal: Negative for: Nausea, Vomiting, Diarrhea Skin: Negative for: Rash Neurological: Negative for: Weakness, Numbness Physical Exam - Physical Exam Appears: Non-toxic, No Acute Distress Skin: Warm, Dry Head: Atraumatic, Normacephalic Eye(s): bilateral: Normal Inspection, PERRL, EOMI Oral Mucosa: Dry, Other (Carbon) Neck: Supple Cardiovascular: Rhythm Regular, No Murmur Respiratory: No Rales, Rhonchi (diffuse), No Wheezing Extremity: No Pedal Edema Extremity: Bilateral: Atraumatic, Normal ROM Neurological/Psych: Oriented x3, Normal Speech ED Course And Treatment - Laboratory Results Result Diagrams: 05/05/18 05:32 05/04/18 05:40 Lab Results: Total Bilirubin 0.8 mg/dL (0.2-1.3) 05/01/18 12:54 AST 33 U/L (14-36) 05/01/18 12:54 ALT 39 U/L (9-52) 05/01/18 12:54 Alkaline Phosphatase 64 U/L (38-126) 05/01/18 12:54 Total Protein 6.6 g/dL (6.3-8.3) 05/01/18 12:54 Albumin 3.8 g/dL (3.5-5.0) 05/01/18 12:54 Globulin 2.7 gm/dL (2.2-3.9) 05/01/18 12:54 Albumin/Globulin Ratio 1.4 (1.0-2.1) 05/01/18 12:54 O2 Sat by Pulse Oximetry: 89 (RA) Pulse Ox Interpretation: Abnormal - Other Rad CXR X-Ray: Read By Radiologist Interpretation: FINDINGS: LUNGS: No active pulmonary disease. PLEURA: No significant pleural effusion identified. No pneumothorax apparent. CARDIOVASCULAR: No aortic atherosclerotic calcification present. Normal heart size. Mitral annular calcification noted. No congestive change. Left central venous infusion port. OSSEOUS STRUCTURES: No significant abnormalities. VISUALIZED UPPER ABDOMEN: Normal. OTHER FINDINGS: None. IMPRESSION: No active disease. Medical Decision Making Medical Decision Making: Plan: --EKG --Bloodwork --Chest XR --Flu swab --Duoneb EKG: NSR @ 95 bpm. Normal intervals. Normal axis. No ST elevations. Poor R wave progression. Nonspecific T wave changes. Update: :42 -- Spoke with Dr. Junior who accepts patient to her service. 15:08 -- Patient was seen by Dr. Bill, patient's pmp. Disposition - Disposition Disposition: HOSPITALIZED Disposition Time: 14:42 Condition: SERIOUS - Clinical Impression Clinical Impression: COPD exacerbation, ESRD (end stage renal disease) on dialysis, Pneumonia - Scribe Statement The provider has reviewed the documentation as recorded by the Jaida Bryant Provider Attestation: All medical record entries made by the Jaida were at my direction and personally dictated by me. I have reviewed the chart and agree that the record accurately reflects my personal performance of the history, physical exam, medical decision making, and the department course for this patient. I have also personally directed, reviewed, and agree with the discharge instructions and disposition.
[2018-05-01 13:38] LABS: B-TYPE NATRIURETIC PEPTIDE 12400 pg/mL (0-900)
[2018-05-01] MEDS ORDERED: Piperacill/Tazo 3.375gm in Dex 3.375 GM/50 ML BAG IV STA (14:18)
[2018-05-01] MEDS ORDERED: Vancomycin 1 gm/NS 200 ml 1 GM/200 ML BAG IVPB STA (14:18)
[2018-05-01] MEDS: Albuterol-Ipratrop 3 mg / 0.5 (3 ml) UD IH SCH ×3 (14:20→14:42)
[2018-05-01] MEDS ORDERED: Albuterol-Ipratrop 3 mg / 0.5 (3 ml) UD ONE ×3 (14:29→15:33)
[2018-05-01 14:56] LABS: VENOUS BLOOD GAS BASE EXCESS 0.3 mmol/L (0.0-2.0); VENOUS BLOOD GAS PCO2 45 mmHg (40-60); VENOUS BLOOD GAS PO2 58 mm/Hg (30-55); VENOUS BLOOD PH 7.37 (7.32-7.43)
--- NOTE | 2018-05-01 14:58 | CP.PCM.HP ---
<Yani Horan - Last Filed: 05/01/18 16:37> History of Present Illness - History of Present Illness History of Present Illness: Admission History and Physical for Dr. Moscoso CC: SOB x 3 days HPI: 83 y/o female with PMHx of COPD, CHF, ESRD on HD MWF, DM, Afib, anemia, MM, and hypothyroidism presents to the ED with SOB x 3 days. SOB occurs both on exertion and at rest. Patient was in her heme onc Dr. Martinez's office today and was sent to the ED because the RN there said she did not look well. Patient states she is not taking medications for SOB. She finished medrol dose pack and avelox givein on past admission as prescribed. Of note patient was hospitalized on 04/14/18-04/19/18 on this service for COPD exacerbation. She was d/prasanna with medrol dose pack and avelox. Denies chest pain, palpitations, nausea, vomiting, diarrhea. Endorses appetite loss. Patient's past EMR records said she has Afib but patient and patient's son denies. Patient never on AC. After patient given duonebs in the ED patient went into SVT. Dr. Henao cardio and Dr. Kessler critical care both consulted. adenosine 6 mg and adenosine 12 mg given 15 mins apart. Pending further recommendations from specialists. PMHx: as stated in HPI FHx: sister w/ colon CA, brother w/ panc CA SocHx: cigarettes x 5 years total but quit 30 years ago. Denies EtOH and tob use. Lives with brother and niece Meds: levothyroxine, crestor, glipizide, metoprolol, famotidine, ferrous sulfate, acyclovir, Ca acetate, colace All: NKDA Present on Admission - Present on Admission Any Indicators Present on Admission: Yes Past Patient History - Infectious Disease Hx of Infectious Diseases: None - Past Medical History & Family History Past Medical History?: Yes - Past Social History Smoking Status: Former Smoker - CARDIAC Hx Atrial Fibrillation: Yes Hx Cardia Arrhythmia: Yes Hx Congestive Heart Failure: Yes Hx Hypercholesterolemia: Yes Hx Hypertension: Yes - NEUROLOGICAL Hx Neurological Disorder: No - HEENT Hx HEENT Problems: Yes Hx Cataracts: Yes (bilateral) - RENAL Hx Chronic Kidney Disease: Yes - ENDOCRINE/METABOLIC Hx Hypothyroidism: Yes - HEMATOLOGICAL/ONCOLOGICAL Hx Anemia: Yes - INTEGUMENTARY Hx Dermatological Problems: No - MUSCULOSKELETAL/RHEUMATOLOGICAL Hx Arthritis: Yes - GASTROINTESTINAL Hx Gastrointestinal Disorders: Yes Hx Hemorrhoids: Yes - GENITOURINARY/GYNECOLOGICAL Hx Genitourinary Disorders: No - PSYCHIATRIC Hx Substance Use: No - SURGICAL HISTORY Hx Surgeries: Yes Hx Arteriovenous Shunt: Yes (LEFT ARM AV ,permacath) Hx Vascular Access Device: Yes (perma cath elaina cath) - ANESTHESIA Hx Anesthesia: Yes Hx Anesthesia Reactions: No Hx Malignant Hyperthermia: No Meds Allergies/Adverse Reactions: Allergies Allergy/AdvReac Type Severity Reaction Status Date / Time No Known Allergies Allergy Verified 04/14/18 08:40 Physical Exam - Constitutional Appears: Agitated (tachypneic) - Head Exam Head Exam: ATRAUMATIC, NORMAL INSPECTION - Eye Exam Eye Exam: EOMI, Normal appearance - ENT Exam ENT Exam: Normal Exam - Neck Exam Neck exam: Positive for: Normal Inspection - Respiratory Exam Respiratory Exam: Rhonchi, Wheezes, Respiratory Distress - Cardiovascular Exam Cardiovascular Exam: Tachycardia - GI/Abdominal Exam GI & Abdominal Exam: Normal Bowel Sounds, Soft - Extremities Exam Extremities exam: Positive for: normal capillary refill, normal inspection, pedal pulses present - Neurological Exam Neurological exam: Alert, Oriented x3 - Skin Skin Exam: Dry, Intact, Normal Color, Warm Results - Vital Signs Recent Vital Signs: Last Vital Signs Temp 100.9 F H 05/01/18 13:10 Pulse 107 H 05/01/18 12:15 Resp 18 05/01/18 12:57 BP 115/62 05/01/18 12:15 Pulse Ox 89 L 05/01/18 14:43 - Labs Result Diagrams: 05/01/18 12:54 05/01/18 12:54 Labs: Laboratory Results - last 24 hr 05/01/18 05/01/18 05/01/18 12:41 12:54 12:54 WBC 15.8 H RBC 3.68 L Hgb 11.4 Hct 34.5 MCV 93.9 MCH 31.1 H MCHC 33.2 RDW 14.2 Plt Count 115 L D MPV 11.0 Neut % (Auto) 91.0 H Lymph % (Auto) 3.1 L Walker % (Auto) 5.2 Eos % (Auto) 0.2 Baso % (Auto) 0.5 Neut # (Auto) 14.4 H Lymph # (Auto) 0.5 L Walker # (Auto) 0.8 Eos # (Auto) 0.0 Baso # (Auto) 0.1 Neutrophils % (Manual) 93 H Band Neutrophils % 1 Lymphocytes % (Manual) 3 L Monocytes % (Manual) 3 Platelet Estimate Slightly decreased L Hypochromasia (manual) Slight Poikilocytosis (manual Slight Anisocytosis (manual) Slight Sodium Potassium Chloride Carbon Dioxide Anion Gap BUN Creatinine Est GFR ( Amer) Est GFR (Non-Af Amer) POC Glucose (mg/dL) 236 H Random Glucose Calcium Total Bilirubin AST ALT Alkaline Phosphatase Troponin I NT-Pro-B Natriuret Pep Total Protein Albumin Globulin Albumin/Globulin Ratio TSH 3rd Generation Influenza Typ A,B (EIA) Negative for flu a/b 05/01/18 12:54 WBC RBC Hgb Hct MCV MCH MCHC RDW Plt Count MPV Neut % (Auto) Lymph % (Auto) Walker % (Auto) Eos % (Auto) Baso % (Auto) Neut # (Auto) Lymph # (Auto) Walker # (Auto) Eos # (Auto) Baso # (Auto) Neutrophils % (Manual) Band Neutrophils % Lymphocytes % (Manual) Monocytes % (Manual) Platelet Estimate Hypochromasia (manual) Poikilocytosis (manual Anisocytosis (manual) Sodium 137 Potassium 3.4 L Chloride 93 L Carbon Dioxide 35 H Anion Gap 13 BUN 20 H Creatinine 2.0 H Est GFR ( Amer) 29 Est GFR (Non-Af Amer) 24 POC Glucose (mg/dL) Random Glucose 222 H D Calcium 8.6 Total Bilirubin 0.8 AST 33 ALT 39 Alkaline Phosphatase 64 Troponin I 0.1090 NT-Pro-B Natriuret Pep 53005 H Total Protein 6.6 Albumin 3.8 Globulin 2.7 Albumin/Globulin Ratio 1.4 TSH 3rd Generation < 0.02 L Influenza Typ A,B (EIA) Assessment & Plan - Assessment and Plan (Free Text) Assessment: 83 y/o female with PMHx of COPD, CHF, ESRD on HD MWF, DM, Afib, anemia, MM, and hypothyroidism presents to the ED with SOB x 3 days. Admit for treatment of PNA. PNA/sepsis -on admission patient w/ leukocytosis 15.98 and fever 100.9F, tachycardia at 107. Meets SIRS and source of infection likely 2/2 PNA -zosyn 2.25 g q12h, rtenally dosed -s/p vanco x 1 and zosyn x 1 in ED -tylenol PRN for fever > 100.4F -pulm Dr. Mai consulted, recs appreciated New onset SVT -s/p duoneb treatment patient tachycardic w/ repeat EKGs consistent with SVT HR 180s -s/p adenosine 6 mg and 12 mg 15 mins apart -ordered 250 cc fluids IVF because of HoTN SBP 80s -pending Dr. Kessler critical care and Dr. Henao cardio recs COPD -solumedrol -phenergan PRN -duonebs q4h PRN - caution due to incident in ER with SVT, will appreciate consult recs -incentive spirometer [place] [address], though CXR no active disease -patient w/o diuresis; pt on HD ESRD -on HD MWF -BUN/Cr on admission 05/06 -avoid fluids DM2 -ISS -home glipizide -hypoglycemic protocol Hx of hypothyroidism -admitting TSH < 0.02 (low) ? -c/w home levothyroxine ASCVD -continue with home crestor 5 mg DVT ppx: heparin 5000 units sq q12 GI ppx: pepcid 20 mg PO Diet: Renal case d/w Dr. Blanka Horan PGY1 Addendum: Dr. Kessler accepted patient to ICU Bed 3. Transferring patient after she receives 150 mg amiodarone. <Marc Henao - Last Filed: 05/01/18 17:53> Results - Vital Signs Recent Vital Signs: Last Vital Signs Temp 100.3 F H 05/01/18 15:09 Pulse 186 H 05/01/18 17:33 Resp 22 05/01/18 17:33 BP 120/61 05/01/18 17:33 Pulse Ox 94 L 05/01/18 17:33 - Labs Result Diagrams: 05/01/18 12:54 05/01/18 12:54 Labs: Laboratory Results - last 24 hr 05/01/18 05/01/18 05/01/18 12:41 12:54 12:54 WBC 15.8 H RBC 3.68 L Hgb 11.4 Hct 34.5 MCV 93.9 MCH 31.1 H MCHC 33.2 RDW 14.2 Plt Count 115 L D MPV 11.0 Neut % (Auto) 91.0 H Lymph % (Auto) 3.1 L Walker % (Auto) 5.2 Eos % (Auto) 0.2 Baso % (Auto) 0.5 Neut # (Auto) 14.4 H Lymph # (Auto) 0.5 L Walker # (Auto) 0.8 Eos # (Auto) 0.0 Baso # (Auto) 0.1 Neutrophils % (Manual) 93 H Band Neutrophils % 1 Lymphocytes % (Manual) 3 L Monocytes % (Manual) 3 Platelet Estimate Slightly decreased L Hypochromasia (manual) Slight Poikilocytosis (manual Slight Anisocytosis (manual) Slight pO2 VBG pH VBG pCO2 VBG HCO3 VBG Total CO2 VBG O2 Sat (Calc) VBG Base Excess VBG Potassium Glucose Lactate Sodium Potassium Chloride Carbon Dioxide Anion Gap BUN Creatinine Est GFR ( Amer) Est GFR (Non-Af Amer) POC Glucose (mg/dL) 236 H Random Glucose Calcium Total Bilirubin AST ALT Alkaline Phosphatase Troponin I NT-Pro-B Natriuret Pep Total Protein Albumin Globulin Albumin/Globulin Ratio TSH 3rd Generation Venous Blood Potassium Influenza Typ A,B (EIA) Negative for flu a/b 05/01/18 05/01/18 12:54 14:53 WBC RBC Hgb Hct MCV MCH MCHC RDW Plt Count MPV Neut % (Auto) Lymph % (Auto) Walker % (Auto) Eos % (Auto) Baso % (Auto) Neut # (Auto) Lymph # (Auto) Walker # (Auto) Eos # (Auto) Baso # (Auto) Neutrophils % (Manual) Band Neutrophils % Lymphocytes % (Manual) Monocytes % (Manual) Platelet Estimate Hypochromasia (manual) Poikilocytosis (manual Anisocytosis (manual) pO2 58 H VBG pH 7.37 VBG pCO2 45 VBG HCO3 24.9 VBG Total CO2 27.4 VBG O2 Sat (Calc) 89.9 H VBG Base Excess 0.3 VBG Potassium 3.0 L Glucose 93 Lactate 3.4 H Sodium 137 139.0 Potassium 3.4 L Chloride 93 L 102.0 Carbon Dioxide 35 H Anion Gap 13 BUN 20 H Creatinine 2.0 H Est GFR ( Amer) 29 Est GFR (Non-Af Amer) 24 POC Glucose (mg/dL) Random Glucose 222 H D Calcium 8.6 Total Bilirubin 0.8 AST 33 ALT 39 Alkaline Phosphatase 64 Troponin I 0.1090 NT-Pro-B Natriuret Pep 93098 H Total Protein 6.6 Albumin 3.8 Globulin 2.7 Albumin/Globulin Ratio 1.4 TSH 3rd Generation < 0.02 L Venous Blood Potassium 3.0 L Influenza Typ A,B (EIA) Attending/Attestation - Attestation I have personally seen and examined this patient.: Yes I have fully participated in the care of the patient.: Yes I have reviewed all pertinent clinical information: Yes Notes (Text): Seen and examined in the ER. History taken from the patient and her brother at bedside. Patient state that she came for cough and sob. Her cough never went away after she was discharged from her. She was complaining fo increasing dyspnea and uses 05/01/18 17:53 <Miranda Moscoso - Last Filed: 05/01/18 18:44> Results - Vital Signs Recent Vital Signs: Last Vital Signs Temp 100.3 F H 05/01/18 15:09 Pulse 186 H 05/01/18 17:33 Resp 22 05/01/18 17:33 BP 120/61 05/01/18 17:33 Pulse Ox 94 L 05/01/18 17:33 - Labs Result Diagrams: 05/01/18 12:54 05/01/18 12:54 Labs: Laboratory Results - last 24 hr 05/01/18 05/01/18 05/01/18 12:41 12:54 12:54 WBC 15.8 H RBC 3.68 L Hgb 11.4 Hct 34.5 MCV 93.9 MCH 31.1 H MCHC 33.2 RDW 14.2 Plt Count 115 L D MPV 11.0 Neut % (Auto) 91.0 H Lymph % (Auto) 3.1 L Walker % (Auto) 5.2 Eos % (Auto) 0.2 Baso % (Auto) 0.5 Neut # (Auto) 14.4 H Lymph # (Auto) 0.5 L Walker # (Auto) 0.8 Eos # (Auto) 0.0 Baso # (Auto) 0.1 Neutrophils % (Manual) 93 H Band Neutrophils % 1 Lymphocytes % (Manual) 3 L Monocytes % (Manual) 3 Platelet Estimate Slightly decreased L Hypochromasia (manual) Slight Poikilocytosis (manual Slight Anisocytosis (manual) Slight pO2 VBG pH VBG pCO2 VBG HCO3 VBG Total CO2 VBG O2 Sat (Calc) VBG Base Excess VBG Potassium Glucose Lactate Sodium Potassium Chloride Carbon Dioxide Anion Gap BUN Creatinine Est GFR ( Amer) Est GFR (Non-Af Amer) POC Glucose (mg/dL) 236 H Random Glucose Calcium Total Bilirubin AST ALT Alkaline Phosphatase Troponin I NT-Pro-B Natriuret Pep Total Protein Albumin Globulin Albumin/Globulin Ratio TSH 3rd Generation Venous Blood Potassium Influenza Typ A,B (EIA) Negative for flu a/b 05/01/18 05/01/18 12:54 14:53 WBC RBC Hgb Hct MCV MCH MCHC RDW Plt Count MPV Neut % (Auto) Lymph % (Auto) Walker % (Auto) Eos % (Auto) Baso % (Auto) Neut # (Auto) Lymph # (Auto) Walker # (Auto) Eos # (Auto) Baso # (Auto) Neutrophils % (Manual) Band Neutrophils % Lymphocytes % (Manual) Monocytes % (Manual) Platelet Estimate Hypochromasia (manual) Poikilocytosis (manual Anisocytosis (manual) pO2 58 H VBG pH 7.37 VBG pCO2 45 VBG HCO3 24.9 VBG Total CO2 27.4 VBG O2 Sat (Calc) 89.9 H VBG Base Excess 0.3 VBG Potassium 3.0 L Glucose 93 Lactate 3.4 H Sodium 137 139.0 Potassium 3.4 L Chloride 93 L 102.0 Carbon Dioxide 35 H Anion Gap 13 BUN 20 H Creatinine 2.0 H Est GFR ( Amer) 29 Est GFR (Non-Af Amer) 24 POC Glucose (mg/dL) Random Glucose 222 H D Calcium 8.6 Total Bilirubin 0.8 AST 33 ALT 39 Alkaline Phosphatase 64 Troponin I 0.1090 NT-Pro-B Natriuret Pep 01383 H Total Protein 6.6 Albumin 3.8 Globulin 2.7 Albumin/Globulin Ratio 1.4 TSH 3rd Generation < 0.02 L Venous Blood Potassium 3.0 L Influenza Typ A,B (EIA) Attending/Attestation - Attestation I have personally seen and examined this patient.: Yes I have fully participated in the care of the patient.: Yes I have reviewed all pertinent clinical information: Yes Notes (Text): Seen and examined by me at ER. History taken from the patient and her brother at bedside. Patient state that she came for cough and sob. Her cough never went away after she was discharged from her. She was complaining fo increasing dyspnea. cough with white sputum,At Er she had low grade fever. admitted for pneumonia ,on admission she was in sinus rhythm and had bilateral lower lobe rhonchi I was called to see her for rapid HR of 180. I went down to see her in the ER she was awake ,oriented and c/p neck discomfort.Her rhythm was like SVT. Carotid massage wasn't helping. Adenosine 6mg IV push broke her rhythm to 130ies sinus and went back to 180ies. Her BP systolic was in 90ies.electrolysis needle operator was called and Dr Kessler critical care was called. Dr ehnao recommend to try Adenosine if not converting to start amiodarone. Dr henao and DR Kessler came down to see thi s patient in ER . As per Dr henao we gave amiodarone 150mg bolus and brought to ICU to start on drip. Patient was hypotensive had 250ml NS at ER then 250ml in the ICU. Patient was tachy /afib with RVR .rate was not down on amiodarone drip. Cardizen 5mg tried .BP came down to SPP 75,her HR remains high. Dr Henao cardioverted the patient after sedated by anesthesiologist. She received 75 joules then 200 joules of synchronized shock and converted to normal sinus. She converted to sinus with systolic BP in 100ts. Patient's brother at bedside spoke to DR Henao we will start on heparin drip and continue amiodarone drip. I spoke to DR Bill .He will see her in the morning. Patient has very low TSH on synthroid. I will get DR christie on board and hold her synthroid now. patient also getting Amiodarone
--- NOTE | 2018-05-01 15:15 | CP.PCM.CON ---
History of Present Illness - History of Present Illness History of Present Illness: CC: SOB x 3 days HPI: 83 y/o female with PMHx of COPD, CHF, ESRD on HD MWF, DM, paroxysmal Afib, anemia, MM, and hypothyroidism presents to the ED with SOB x 7 days. SOB occurs both on exertion and at rest. 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 Had received CTX for myeloma Of note patient was hospitalized on 04/14/18-04/19/18 on this service for COPD exacerbation. She was d/prasanna with medrol dose pack and avelox. Also treated for fluid overload with dialysis PMHx: as stated in HPI PSHx: AV fistula FHx: sister w/ colon CA, brother w/ panc CA; no CKD SocHx: cigarettes x 5 years total but quit 30 years ago. Denies EtOH and tob us e. Lives with brother and niece Meds: levothyroxine, crestor, glipizied, metoprolol, famotidine, ferrous sulfate, acyclovir, Ca acetate All: NKDA Review of Systems - Constitutional Constitutional: Weight Loss, Weakness - EENT Eyes: absent: As Per HPI, Blind Spots, Blurred Vision, Change in Vision, Decreased Night Vision, Diplopia, Discharge, Dry Eye, Exophthalmos, Floaters, Irritation, Itchy Eyes, Loss of Peripheral Vision, Pain, Photophobia, Requires Corrective Lenses, Sees Flashes, Spots in Vision, Tunnel Vision, Other Visual Disturbances, Loss of Vision, Other Ears: absent: As Per HPI, Decreased Hearing, Ear Discharge, Ear Pain, Tinnitus, Abnormal Hearing, Disequilibrium, Dizziness, Other Nose/Mouth/Throat: absent: As Per HPI, Epistaxis, Nasal Congestion, Nasal Discharge, Nasal Obstruction, Nasal Trauma, Nose Pain, Post Nasal Drip, Sinus Pain, Sinus Pressure, Bleeding Gums, Change in Voice, Dental Pain, Dry Mouth, Dysphagia, Halitosis, Hoarsness, Lip Swelling, Mouth Lesions, Mouth Pain, Odynophagia, Sore Throat, Throat Swelling, Tongue Swelling, Facial Pain, Neck Pain, Neck Mass, Other - Cardiovascular Cardiovascular: Dyspnea on Exertion, Pedal Edema - Respiratory Respiratory: As Per HPI, Cough, Wheezing - Gastrointestinal Gastrointestinal: Nausea - Genitourinary Genitourinary: As Per HPI - Musculoskeletal Musculoskeletal: Muscle Cramps, Muscle Weakness, Myalgias Past Patient History - Infectious Disease Hx of Infectious Diseases: None - Past Medical History & Family History Past Medical History?: Yes Past Family History: Reviewed and not pertinent - Past Social History Smoking Status: Former Smoker Chewing Tobacco Use: No Cigar Use: No Alcohol: None Drugs: Denies Home Situation {Lives}: With Family - CARDIAC Hx Atrial Fibrillation: Yes Hx Cardia Arrhythmia: Yes Hx Congestive Heart Failure: Yes Hx Hypercholesterolemia: Yes Hx Hypertension: Yes - NEUROLOGICAL Hx Neurological Disorder: No - HEENT Hx HEENT Problems: Yes Hx Cataracts: Yes (bilateral) - RENAL Hx Chronic Kidney Disease: Yes - ENDOCRINE/METABOLIC Hx Hypothyroidism: Yes - HEMATOLOGICAL/ONCOLOGICAL Hx Anemia: Yes - INTEGUMENTARY Hx Dermatological Problems: No - MUSCULOSKELETAL/RHEUMATOLOGICAL Hx Arthritis: Yes - GASTROINTESTINAL Hx Gastrointestinal Disorders: Yes Hx Hemorrhoids: Yes - GENITOURINARY/GYNECOLOGICAL Hx Genitourinary Disorders: No - PSYCHIATRIC Hx Substance Use: No - SURGICAL HISTORY Hx Surgeries: Yes Hx Arteriovenous Shunt: Yes (LEFT ARM AV ,permacath) Hx Vascular Access Device: Yes (perma cath elaina cath) - ANESTHESIA Hx Anesthesia: Yes Hx Anesthesia Reactions: No Hx Malignant Hyperthermia: No Meds Allergies/Adverse Reactions: Allergies Allergy/AdvReac Type Severity Reaction Status Date / Time No Known Allergies Allergy Verified 04/14/18 08:40 - Medications Medications: Current Medications Vancomycin/Sodium Chloride (Vancomycin 1 Gm/Ns 200 Ml) 1 gm in 200 mls @ 133 mls/hr IVPB STAT STA; Protocol Stop: 05/01/18 15:48 Physical Exam - Constitutional Appears: No Acute Distress, Chronically Ill - Head Exam Head Exam: ATRAUMATIC, NORMAL INSPECTION - Eye Exam Eye Exam: EOMI, Normal appearance - Neck Exam Neck exam: Positive for: Normal Inspection. Negative for: Tenderness - Respiratory Exam Respiratory Exam: Rhonchi, Wheezes - Cardiovascular Exam Cardiovascular Exam: REGULAR RHYTHM, +S1 - GI/Abdominal Exam GI & Abdominal Exam: Soft. absent: Tenderness - Extremities Exam Extremities exam: Positive for: normal inspection. Negative for: tenderness - Neurological Exam Neurological exam: Alert, CN II-XII Intact - Skin Skin Exam: Dry, Warm Results - Vital Signs Recent Vital Signs: Last Vital Signs Temp 100.9 F H 05/01/18 13:10 Pulse 107 H 05/01/18 12:15 Resp 18 05/01/18 12:57 BP 115/62 05/01/18 12:15 Pulse Ox 89 L 05/01/18 14:43 - Labs Result Diagrams: 05/01/18 12:54 05/01/18 12:54 Labs: Laboratory Results - last 24 hr 05/01/18 05/01/18 05/01/18 12:41 12:54 12:54 WBC 15.8 H RBC 3.68 L Hgb 11.4 Hct 34.5 MCV 93.9 MCH 31.1 H MCHC 33.2 RDW 14.2 Plt Count 115 L D MPV 11.0 Neut % (Auto) 91.0 H Lymph % (Auto) 3.1 L [place] % (Auto) 5.2 Eos % (Auto) 0.2 Baso % (Auto) 0.5 Neut # (Auto) 14.4 H Lymph # (Auto) 0.5 L [place] # (Auto) 0.8 Eos # (Auto) 0.0 Baso # (Auto) 0.1 Neutrophils % (Manual) 93 H Band Neutrophils % 1 Lymphocytes % (Manual) 3 L Monocytes % (Manual) 3 Platelet Estimate Slightly decreased L Hypochromasia (manual) Slight Poikilocytosis (manual Slight Anisocytosis (manual) Slight pO2 VBG pH VBG pCO2 VBG HCO3 VBG Total CO2 VBG O2 Sat (Calc) VBG Base Excess VBG Potassium Glucose Lactate Sodium Potassium Chloride Carbon Dioxide Anion Gap BUN Creatinine Est GFR ( Amer) Est GFR (Non-Af Amer) POC Glucose (mg/dL) 236 H Random Glucose Calcium Total Bilirubin AST ALT Alkaline Phosphatase Troponin I NT-Pro-B Natriuret Pep Total Protein Albumin Globulin Albumin/Globulin Ratio TSH 3rd Generation Venous Blood Potassium Influenza Typ A,B (EIA) Negative for flu a/b 05/01/18 05/01/18 12:54 14:53 WBC RBC Hgb Hct MCV MCH MCHC RDW Plt Count MPV Neut % (Auto) Lymph % (Auto) [place] % (Auto) Eos % (Auto) Baso % (Auto) Neut # (Auto) Lymph # (Auto) [place] # (Auto) Eos # (Auto) Baso # (Auto) Neutrophils % (Manual) Band Neutrophils % Lymphocytes % (Manual) Monocytes % (Manual) Platelet Estimate Hypochromasia (manual) Poikilocytosis (manual Anisocytosis (manual) pO2 58 H VBG pH 7.37 VBG pCO2 45 VBG HCO3 24.9 VBG Total CO2 27.4 VBG O2 Sat (Calc) 89.9 H VBG Base Excess 0.3 VBG Potassium 3.0 L Glucose 93 Lactate 3.4 H Sodium 137 139.0 Potassium 3.4 L Chloride 93 L 102.0 Carbon Dioxide 35 H Anion Gap 13 BUN 20 H Creatinine 2.0 H Est GFR ( Amer) 29 Est GFR (Non-Af Amer) 24 POC Glucose (mg/dL) Random Glucose 222 H D Calcium 8.6 Total Bilirubin 0.8 AST 33 ALT 39 Alkaline Phosphatase 64 Troponin I 0.1090 NT-Pro-B Natriuret Pep 71338 H Total Protein 6.6 Albumin 3.8 Globulin 2.7 Albumin/Globulin Ratio 1.4 TSH 3rd Generation < 0.02 L Venous Blood Potassium 3.0 L Influenza Typ A,B (EIA) Assessment & Plan (1) Fluid overload Status: Acute (2) Multiple myeloma Status: Acute (3) ESRD (end stage renal disease) Status: Acute (4) Fluid overload, unspecified Status: Acute - Assessment and Plan (Free Text) Plan: pulmonary evaluation treat bronchospasm blood cultures IV ABs as patient with fevers dialysis MWF
[2018-05-01] MEDS ORDERED: Vancomycin 1 GM 1 GM/250 ML BAG IVPB ONE (15:30)
[2018-05-01] MEDS ORDERED: Piperacillin/Tazobact 3.375 gm 100 ML IVPB ONE (15:30)
[2018-05-01] MEDS ORDERED: Promethazine DM 6.25 mg-15 mg/5 ml Syrup PO PRN (16:03)
[2018-05-01] MEDS ORDERED: Sodium Chloride 0.9% 250 ML IV ONE ×2 (16:11→17:01)
[2018-05-01] MEDS ORDERED: Amiodarone 150mg/3 ml vial ONE (16:33)
--- NOTE | 2018-05-01 16:36 | CP.PCM.CON ---
Past Patient History - Infectious Disease Hx of Infectious Diseases: None - Past Medical History & Family History Past Medical History?: Yes - Past Social History Smoking Status: Former Smoker - CARDIAC Hx Atrial Fibrillation: Yes Hx Cardia Arrhythmia: Yes Hx Congestive Heart Failure: Yes Hx Hypercholesterolemia: Yes Hx Hypertension: Yes - NEUROLOGICAL Hx Neurological Disorder: No - HEENT Hx HEENT Problems: Yes Hx Cataracts: Yes (bilateral) - RENAL Hx Chronic Kidney Disease: Yes - ENDOCRINE/METABOLIC Hx Hypothyroidism: Yes - HEMATOLOGICAL/ONCOLOGICAL Hx Anemia: Yes - INTEGUMENTARY Hx Dermatological Problems: No - MUSCULOSKELETAL/RHEUMATOLOGICAL Hx Arthritis: Yes - GASTROINTESTINAL Hx Gastrointestinal Disorders: Yes Hx Hemorrhoids: Yes - GENITOURINARY/GYNECOLOGICAL Hx Genitourinary Disorders: No - PSYCHIATRIC Hx Substance Use: No - SURGICAL HISTORY Hx Surgeries: Yes Hx Arteriovenous Shunt: Yes (LEFT ARM AV ,permacath) Hx Vascular Access Device: Yes (perma cath elaina cath) - ANESTHESIA Hx Anesthesia: Yes Hx Anesthesia Reactions: No Hx Malignant Hyperthermia: No Meds Allergies/Adverse Reactions: Allergies Allergy/AdvReac Type Severity Reaction Status Date / Time No Known Allergies Allergy Verified 04/14/18 08:40 - Medications Medications: Current Medications Acetaminophen (Tylenol 325mg Tab) 650 mg PO Q6 PRN PRN Reason: pain+fever Famotidine (Pepcid) 20 mg PO DAILY [facility] Heparin Sodium (Porcine) (Heparin) 5,000 units SC Q12 [facility] Piperacillin Sod/Tazobactam (Sod 2.25 gm/ Sodium Chloride) 100 mls @ 200 mls/hr IVPB Q12 [facility]; Protocol Amiodarone HCl 150 mg/ (Dextrose) 103 mls @ 618 mls/hr IVPB ONCE ONE; Protocol Stop: 05/01/18 17:09 Methylprednisolone (Solu-Medrol) 40 mg IVP Q8H [facility] Promethazine HCl/Dextromethorphan (Phenergan Dm Syrup) 5 ml PO Q6H PRN PRN Reason: Cough Results - Vital Signs Recent Vital Signs: Last Vital Signs Temp 100.3 F H 05/01/18 15:09 Pulse 109 H 05/01/18 15:16 Resp 21 05/01/18 15:16 BP 113/44 L 05/01/18 15:16 Pulse Ox 89 L 05/01/18 15:25 - Labs Result Diagrams: 05/01/18 12:54 05/01/18 12:54 Labs: Laboratory Results - last 24 hr 05/01/18 05/01/18 05/01/18 12:41 12:54 12:54 WBC 15.8 H RBC 3.68 L Hgb 11.4 Hct 34.5 MCV 93.9 MCH 31.1 H MCHC 33.2 RDW 14.2 Plt Count 115 L D MPV 11.0 Neut % (Auto) 91.0 H Lymph % (Auto) 3.1 L [place] % (Auto) 5.2 Eos % (Auto) 0.2 Baso % (Auto) 0.5 Neut # (Auto) 14.4 H Lymph # (Auto) 0.5 L [place] # (Auto) 0.8 Eos # (Auto) 0.0 Baso # (Auto) 0.1 Neutrophils % (Manual) 93 H Band Neutrophils % 1 Lymphocytes % (Manual) 3 L Monocytes % (Manual) 3 Platelet Estimate Slightly decreased L Hypochromasia (manual) Slight Poikilocytosis (manual Slight Anisocytosis (manual) Slight pO2 VBG pH VBG pCO2 VBG HCO3 VBG Total CO2 VBG O2 Sat (Calc) VBG Base Excess VBG Potassium Glucose Lactate Sodium Potassium Chloride Carbon Dioxide Anion Gap BUN Creatinine Est GFR ( Amer) Est GFR (Non-Af Amer) POC Glucose (mg/dL) 236 H Random Glucose Calcium Total Bilirubin AST ALT Alkaline Phosphatase Troponin I NT-Pro-B Natriuret Pep Total Protein Albumin Globulin Albumin/Globulin Ratio TSH 3rd Generation Venous Blood Potassium Influenza Typ A,B (EIA) Negative for flu a/b 05/01/18 05/01/18 12:54 14:53 WBC RBC Hgb Hct MCV MCH MCHC RDW Plt Count MPV Neut % (Auto) Lymph % (Auto) [place] % (Auto) Eos % (Auto) Baso % (Auto) Neut # (Auto) Lymph # (Auto) [place] # (Auto) Eos # (Auto) Baso # (Auto) Neutrophils % (Manual) Band Neutrophils % Lymphocytes % (Manual) Monocytes % (Manual) Platelet Estimate Hypochromasia (manual) Poikilocytosis (manual Anisocytosis (manual) pO2 58 H VBG pH 7.37 VBG pCO2 45 VBG HCO3 24.9 VBG Total CO2 27.4 VBG O2 Sat (Calc) 89.9 H VBG Base Excess 0.3 VBG Potassium 3.0 L Glucose 93 Lactate 3.4 H Sodium 137 139.0 Potassium 3.4 L Chloride 93 L 102.0 Carbon Dioxide 35 H Anion Gap 13 BUN 20 H Creatinine 2.0 H Est GFR ( Amer) 29 Est GFR (Non-Af Amer) 24 POC Glucose (mg/dL) Random Glucose 222 H D Calcium 8.6 Total Bilirubin 0.8 AST 33 ALT 39 Alkaline Phosphatase 64 Troponin I 0.1090 NT-Pro-B Natriuret Pep 18374 H Total Protein 6.6 Albumin 3.8 Globulin 2.7 Albumin/Globulin Ratio 1.4 TSH 3rd Generation < 0.02 L Venous Blood Potassium 3.0 L Influenza Typ A,B (EIA)
[2018-05-01] MEDS ORDERED: Heparin25000 units/250ml 1/2NS 25,000 UNITS/250 ML BAG IV PRN (17:14)
--- NOTE | 2018-05-01 17:38 | CP.PCM.CON ---
<Pepe Kessler - Last Filed: 05/01/18 18:21> Meds Allergies/Adverse Reactions: Allergies Allergy/AdvReac Type Severity Reaction Status Date / Time No Known Allergies Allergy Verified 04/14/18 08:40 - Medications Medications: Current Medications Acetaminophen (Tylenol 325mg Tab) 650 mg PO Q6 PRN PRN Reason: pain+fever Calcium Acetate (Phoslo) 667 mg PO BIDCC [facility] Last Admin: 05/01/18 18:02 Dose: Not Given Famotidine (Pepcid) 20 mg PO DAILY [facility] Last Admin: 05/01/18 18:02 Dose: Not Given Piperacillin Sod/Tazobactam (Sod 2.25 gm/ Sodium Chloride) 100 mls @ 200 mls/hr IVPB Q12 [facility]; Protocol Amiodarone HCl 900 mg/ (Dextrose) 500 mls @ 33.33 mls/hr IV .Q15H1M ONE; Protocol Stop: 05/02/18 08:00 Last Admin: 05/01/18 18:13 Dose: 33.33 mls/hr Heparin Sodium/Sodium Chloride (Heparin 75118 Units/250ml 1/2 Normal Saline) 25,000 units in 250 mls @ 9.525 mls/hr IV .Q24H PRN; Protocol PRN Reason: PROTOCOL Methylprednisolone (Solu-Medrol) 40 mg IVP Q8H [facility] Results - Vital Signs Recent Vital Signs: Last Vital Signs Temp 100.3 F H 05/01/18 15:09 Pulse 158 H 05/01/18 18:13 Resp 18 05/01/18 18:13 BP 90/56 L 05/01/18 18:13 Pulse Ox 98 05/01/18 18:13 - Labs Result Diagrams: 05/01/18 12:54 05/01/18 12:54 Labs: Laboratory Results - last 24 hr 05/01/18 05/01/18 05/01/18 12:41 12:54 12:54 WBC 15.8 H RBC 3.68 L Hgb 11.4 Hct 34.5 MCV 93.9 MCH 31.1 H MCHC 33.2 RDW 14.2 Plt Count 115 L D MPV 11.0 Neut % (Auto) 91.0 H Lymph % (Auto) 3.1 L [place] % (Auto) 5.2 Eos % (Auto) 0.2 Baso % (Auto) 0.5 Neut # (Auto) 14.4 H Lymph # (Auto) 0.5 L [place] # (Auto) 0.8 Eos # (Auto) 0.0 Baso # (Auto) 0.1 Neutrophils % (Manual) 93 H Band Neutrophils % 1 Lymphocytes % (Manual) 3 L Monocytes % (Manual) 3 Platelet Estimate Slightly decreased L Hypochromasia (manual) Slight Poikilocytosis (manual Slight Anisocytosis (manual) Slight pO2 VBG pH VBG pCO2 VBG HCO3 VBG Total CO2 VBG O2 Sat (Calc) VBG Base Excess VBG Potassium Glucose Lactate Sodium Potassium Chloride Carbon Dioxide Anion Gap BUN Creatinine Est GFR ( Amer) Est GFR (Non-Af Amer) POC Glucose (mg/dL) 236 H Random Glucose Calcium Total Bilirubin AST ALT Alkaline Phosphatase Troponin I NT-Pro-B Natriuret Pep Total Protein Albumin Globulin Albumin/Globulin Ratio TSH 3rd Generation Venous Blood Potassium Influenza Typ A,B (EIA) Negative for flu a/b 05/01/18 05/01/18 12:54 14:53 WBC RBC Hgb Hct MCV MCH MCHC RDW Plt Count MPV Neut % (Auto) Lymph % (Auto) [place] % (Auto) Eos % (Auto) Baso % (Auto) Neut # (Auto) Lymph # (Auto) [place] # (Auto) Eos # (Auto) Baso # (Auto) Neutrophils % (Manual) Band Neutrophils % Lymphocytes % (Manual) Monocytes % (Manual) Platelet Estimate Hypochromasia (manual) Poikilocytosis (manual Anisocytosis (manual) pO2 58 H VBG pH 7.37 VBG pCO2 45 VBG HCO3 24.9 VBG Total CO2 27.4 VBG O2 Sat (Calc) 89.9 H VBG Base Excess 0.3 VBG Potassium 3.0 L Glucose 93 Lactate 3.4 H Sodium 137 139.0 Potassium 3.4 L Chloride 93 L 102.0 Carbon Dioxide 35 H Anion Gap 13 BUN 20 H Creatinine 2.0 H Est GFR ( Amer) 29 Est GFR (Non-Af Amer) 24 POC Glucose (mg/dL) Random Glucose 222 H D Calcium 8.6 Total Bilirubin 0.8 AST 33 ALT 39 Alkaline Phosphatase 64 Troponin I 0.1090 NT-Pro-B Natriuret Pep 57529 H Total Protein 6.6 Albumin 3.8 Globulin 2.7 Albumin/Globulin Ratio 1.4 TSH 3rd Generation < 0.02 L Venous Blood Potassium 3.0 L Influenza Typ A,B (EIA) Attending/Attestation - Attestation I have personally seen and examined this patient.: Yes I have fully participated in the care of the patient.: Yes I have reviewed all pertinent clinical information: Yes Notes (Text): 05/01/18 18:21 Patient seen and examined 83-year-old female with end-stage renal disease on hemodialysis, multiple myelom a presented to emergency room with A. fib and rapid ventricular response. Patient was transferred to intensive care unit and initially started on amiodarone but later was cardioverted by cardiology. Continue amiodarone drip Anticoagulation ICU monitoring <Shaquille Wilder - Last Filed: 05/01/18 21:22> History of Present Illness - History of Present Illness History of Present Illness: PGY-[address] consult for [address] Kessler service Patient is a 83 year old female with past medical history of COPD, CHF, ESRD on HD MWF, DM, Afib, anemia, Multiple myeloma, hypothyroid came to the ED today after experiencing SOB and chest discomfort after her scheduled session of HD today. Brother at bedside contributes to history, as patient is mostly Vincentian speaking. Patient was sent from her oncologist Dr Martinez's office to the ED. Patient has been having shortness of breath, and cough for days, had last admission last month 04/14/18-04/19/18 for COPD exarcerbation. At ER today, patient went into SVT, received denosine 6 mg and adenosine 12 mg given 15 mins apart, which shortly broke arrhthmia, became hypotensive with SBP 75. 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, lives with brother and niece Review of Systems - Review of Systems All systems: reviewed and no additional remarkable complaints except Review of Systems: as stated in HPI Past Patient History - Infectious Disease Hx of Infectious Diseases: None - Past Medical History & Family History Past Medical History?: Yes - Past Social History Smoking Status: Former Smoker - CARDIAC Hx Atrial Fibrillation: Yes Hx Cardia Arrhythmia: Yes Hx Congestive Heart Failure: Yes Hx Hypercholesterolemia: Yes Hx Hypertension: Yes - NEUROLOGICAL Hx Neurological Disorder: No - HEENT Hx HEENT Problems: Yes Hx Cataracts: Yes (bilateral) - RENAL Hx Chronic Kidney Disease: Yes - ENDOCRINE/METABOLIC Hx Hypothyroidism: Yes - HEMATOLOGICAL/ONCOLOGICAL Hx Anemia: Yes - INTEGUMENTARY Hx Dermatological Problems: No - MUSCULOSKELETAL/RHEUMATOLOGICAL Hx Arthritis: Yes - GASTROINTESTINAL Hx Gastrointestinal Disorders: Yes Hx Hemorrhoids: Yes - GENITOURINARY/GYNECOLOGICAL Hx Genitourinary Disorders: No - PSYCHIATRIC Hx Substance Use: No - SURGICAL HISTORY Hx Surgeries: Yes Hx Arteriovenous Shunt: Yes (LEFT ARM AV ,permacath) Hx Vascular Access Device: Yes (perma cath elaina cath) - ANESTHESIA Hx Anesthesia: Yes Hx Anesthesia Reactions: No Hx Malignant Hyperthermia: No Meds - Medications Medications: Current Medications Acetaminophen (Tylenol 325mg Tab) 650 mg PO Q6 PRN PRN Reason: pain+fever Calcium Acetate (Phoslo) 667 mg PO BIDCC [facility] Diltiazem HCl (Cardizem) 5 mg IVP ONCE ONE Stop: 05/01/18 17:46 Famotidine (Pepcid) 20 mg PO DAILY [facility] Piperacillin Sod/Tazobactam (Sod 2.25 gm/ Sodium Chloride) 100 mls @ 200 mls/hr IVPB Q12 [facility]; Protocol Amiodarone HCl 900 mg/ (Dextrose) 500 mls @ 33.33 mls/hr IV .Q15H1M ONE; Protocol Stop: 05/02/18 08:00 Heparin Sodium/Sodium Chloride (Heparin 98325 Units/250ml 1/2 Normal Saline) 25,000 units in 250 mls @ 9.525 mls/hr IV .Q24H PRN; Protocol PRN Reason: PROTOCOL Methylprednisolone (Solu-Medrol) 40 mg IVP Q8H [facility] Physical Exam - Constitutional Appears: Non-toxic, No Acute Distress - Head Exam Head Exam: ATRAUMATIC, NORMOCEPHALIC - Eye Exam Eye Exam: EOMI, Normal appearance, PERRL - Respiratory Exam Respiratory Exam: Rales. absent: Accessory Muscle Use, Wheezes, Respiratory Distress Additional comments: b/l crackles - Cardiovascular Exam Cardiovascular Exam: Tachycardia, REGULAR RHYTHM, +S1, +S2 - GI/Abdominal Exam GI & Abdominal Exam: Normal Bowel Sounds - Extremities Exam Extremities exam: Positive for: normal inspection. Negative for: pedal edema, tenderness - Neurological Exam Neurological exam: Alert, CN II-XII Intact, Oriented x3 - Psychiatric Exam Psychiatric exam: Anxious, Normal Affect, Normal Mood - Skin Skin Exam: Dry, Warm Results - Vital Signs Recent Vital Signs: Last Vital Signs Temp 100.3 F H 05/01/18 15:09 Pulse 185 H 05/01/18 16:36 Resp 30 H 05/01/18 16:36 BP 120/60 05/01/18 16:36 Pulse Ox 95 05/01/18 16:15 - Labs Result Diagrams: 05/01/18 12:54 05/01/18 12:54 Labs: Laboratory Results - last 24 hr 05/01/18 05/01/18 05/01/18 12:41 12:54 12:54 WBC 15.8 H RBC 3.68 L Hgb 11.4 Hct 34.5 MCV 93.9 MCH 31.1 H MCHC 33.2 RDW 14.2 Plt Count 115 L D MPV 11.0 Neut % (Auto) 91.0 H Lymph % (Auto) 3.1 L [place] % (Auto) 5.2 Eos % (Auto) 0.2 Baso % (Auto) 0.5 Neut # (Auto) 14.4 H Lymph # (Auto) 0.5 L [place] # (Auto) 0.8 Eos # (Auto) 0.0 Baso # (Auto) 0.1 Neutrophils % (Manual) 93 H Band Neutrophils % 1 Lymphocytes % (Manual) 3 L Monocytes % (Manual) 3 Platelet Estimate Slightly decreased L Hypochromasia (manual) Slight Poikilocytosis (manual Slight Anisocytosis (manual) Slight pO2 VBG pH VBG pCO2 VBG HCO3 VBG Total CO2 VBG O2 Sat (Calc) VBG Base Excess VBG Potassium Glucose Lactate Sodium Potassium Chloride Carbon Dioxide Anion Gap BUN Creatinine Est GFR ( Amer) Est GFR (Non-Af Amer) POC Glucose (mg/dL) 236 H Random Glucose Calcium Total Bilirubin AST ALT Alkaline Phosphatase Troponin I NT-Pro-B Natriuret Pep Total Protein Albumin Globulin Albumin/Globulin Ratio TSH 3rd Generation Venous Blood Potassium Influenza Typ A,B (EIA) Negative for flu a/b 05/01/18 05/01/18 12:54 14:53 WBC RBC Hgb Hct MCV MCH MCHC RDW Plt Count MPV Neut % (Auto) Lymph % (Auto) [place] % (Auto) Eos % (Auto) Baso % (Auto) Neut # (Auto) Lymph # (Auto) [place] # (Auto) Eos # (Auto) Baso # (Auto) Neutrophils % (Manual) Band Neutrophils % Lymphocytes % (Manual) Monocytes % (Manual) Platelet Estimate Hypochromasia (manual) Poikilocytosis (manual Anisocytosis (manual) pO2 58 H VBG pH 7.37 VBG pCO2 45 VBG HCO3 24.9 VBG Total CO2 27.4 VBG O2 Sat (Calc) 89.9 H VBG Base Excess 0.3 VBG Potassium 3.0 L Glucose 93 Lactate 3.4 H Sodium 137 139.0 Potassium 3.4 L Chloride 93 L 102.0 Carbon Dioxide 35 H Anion Gap 13 BUN 20 H Creatinine 2.0 H Est GFR ( Amer) 29 Est GFR (Non-Af Amer) 24 POC Glucose (mg/dL) Random Glucose 222 H D Calcium 8.6 Total Bilirubin 0.8 AST 33 ALT 39 Alkaline Phosphatase 64 Troponin I 0.1090 NT-Pro-B Natriuret Pep 60190 H Total Protein 6.6 Albumin 3.8 Globulin 2.7 Albumin/Globulin Ratio 1.4 TSH 3rd Generation < 0.02 L Venous Blood Potassium 3.0 L Influenza Typ A,B (EIA) Assessment & Plan - Assessment and Plan (Free Text) Assessment: 83 y/o female with PMHx of COPD, CHF, ESRD on HD MWF, DM, Afib, anemia, MM, and hypothyroidism presents to the ED with SOB x 3 days transferred to ICU for management of new onset SVT, cardioverted by cardiology, hypotension on cardizem drip and heparin drip Plan: Neuro AAOx3 no acute problems Cardio troponin negative x1 EKG - afib RVR adenosine and cardizem given amiodorone and cardizem - hypotension, rapid heart rate refractory to medication cardioconversion by cardiology- 75, 200 Joules of synchronized shock - converted to NS amiodarone drip Heparin drip 2x NS bolus total given Cardio - Dr Alla f/u Echo Pulm Chest Xray - no active disease hx of COPD, CHF Solumedrol 125mg given in ER Solumedrol 40mg IVP Q8H Pulm - Dr Kessler on O2 via NC GI Renal diet pepcid Renal ESRD HD MWF Renal - Dr Bill Endo -low TSH - patient on synthroid at home - Dr Mays - Endo consult ID Code sepsis Lactate VBG - 3.4 repeat lactic acid @6pm 1 dose zosyn 1 dose Vanco zosyn IVPB Q12H f/u Bcx and UCx f/u am labs PPX Heparin drip tylenol PRN Pepcid 20mg PO Daily Plan discussed with Dr Checo Wilder, PGY-1 - Date & Time Date: 05/01/18 Time: 18:00
--- NOTE | 2018-05-01 17:40 | CP.PCM.CON ---
History of Present Illness - History of Present Illness History of Present Illness: 83 y/o female with PMHx of COPD, CHF, ESRD on HD MWF, DM, paroxysmal Afib, anemia, MM, and hypothyroidism presents to the ED with SOB x 7 days. SOB occurs both on exertion and at rest. 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 Had received CTX for myeloma Of note patient was hospitalized on 04/14/18-04/19/18 on this service for COPD exacerbation. She was d/prasanna with medrol dose pack and avelox. Also treated for fluid overload with dialysis Pt had been on amiodarone a few years ago. the pat had dialysis today. She arrived in the ER in normal sinus, then developed a rapid heart rate, regular, that broke briefly to nsr with IV adenosie. Pt has had low blood pressure, which improved with IV saline bolus. AIV amiodarone bolus and drip begun. A small 5mg IV bolius of cardezem resulted in hypotension BP 75 systolic. Pt has bee awake and alert during this time. As the patient was hypotensive, HR rapid and refractory to medication, the patient underwent elective, emergent cardioversion. She received 75 joules then 200 joules of synchronized shock and converted to normal sinus. TSH is low Review of Systems - Review of Systems All systems: reviewed and no additional remarkable complaints except (as above) Past Patient History - Infectious Disease Hx of Infectious Diseases: None - Past Medical History & Family History Past Medical History?: Yes - Past Social History Smoking Status: Former Smoker - CARDIAC Hx Atrial Fibrillation: Yes Hx Cardia Arrhythmia: Yes Hx Congestive Heart Failure: Yes Hx Hypercholesterolemia: Yes Hx Hypertension: Yes - NEUROLOGICAL Hx Neurological Disorder: No - HEENT Hx HEENT Problems: Yes Hx Cataracts: Yes (bilateral) - RENAL Hx Chronic Kidney Disease: Yes - ENDOCRINE/METABOLIC Hx Hypothyroidism: Yes - HEMATOLOGICAL/ONCOLOGICAL Hx Anemia: Yes - INTEGUMENTARY Hx Dermatological Problems: No - MUSCULOSKELETAL/RHEUMATOLOGICAL Hx Arthritis: Yes - GASTROINTESTINAL Hx Gastrointestinal Disorders: Yes Hx Hemorrhoids: Yes - GENITOURINARY/GYNECOLOGICAL Hx Genitourinary Disorders: No - PSYCHIATRIC Hx Substance Use: No - SURGICAL HISTORY Hx Surgeries: Yes Hx Arteriovenous Shunt: Yes (LEFT ARM AV ,permacath) Hx Vascular Access Device: Yes (perma cath elaina cath) - ANESTHESIA Hx Anesthesia: Yes Hx Anesthesia Reactions: No Hx Malignant Hyperthermia: No Meds Allergies/Adverse Reactions: Allergies Allergy/AdvReac Type Severity Reaction Status Date / Time No Known Allergies Allergy Verified 04/14/18 08:40 - Medications Medications: Current Medications Acetaminophen (Tylenol 325mg Tab) 650 mg PO Q6 PRN PRN Reason: pain+fever Calcium Acetate (Phoslo) 667 mg PO BIDCC [facility] Diltiazem HCl (Cardizem) 5 mg IVP STAT STA Stop: 05/01/18 16:53 Famotidine (Pepcid) 20 mg PO DAILY [facility] Piperacillin Sod/Tazobactam (Sod 2.25 gm/ Sodium Chloride) 100 mls @ 200 mls/hr IVPB Q12 [facility]; Protocol Amiodarone HCl 900 mg/ (Dextrose) 500 mls @ 33.33 mls/hr IV .Q15H1M ONE; Protocol Stop: 05/02/18 08:00 Sodium Chloride (Sodium Chloride 0.9%) 250 mls @ 1,000 mls/hr IV .Q15M ONE Stop: 05/01/18 17:15 Heparin Sodium/Sodium Chloride (Heparin 16816 Units/250ml 1/2 Normal Saline) 25,000 units in 250 mls @ 9.525 mls/hr IV .Q24H PRN; Protocol PRN Reason: PROTOCOL Methylprednisolone (Solu-Medrol) 40 mg IVP Q8H [facility] Physical Exam - Constitutional Appears: In Acute Distress - Head Exam Head Exam: ATRAUMATIC - Eye Exam Eye Exam: EOMI Pupil Exam: PERRL - ENT Exam ENT Exam: Mucous Membranes Moist - Respiratory Exam Respiratory Exam: Clear to Auscultation Bilateral - Cardiovascular Exam Cardiovascular Exam: REGULAR RHYTHM - GI/Abdominal Exam GI & Abdominal Exam: Normal Bowel Sounds - Exam External exam: NORMAL EXTERNAL EXAM - Extremities Exam Extremities exam: Positive for: normal inspection - Back Exam Back exam: NORMAL INSPECTION - Neurological Exam Neurological exam: Alert, CN II-XII Intact, Oriented x3, Reflexes Normal - Psychiatric Exam Psychiatric exam: Normal Affect - Skin Skin Exam: Normal Color Results - Vital Signs Recent Vital Signs: Last Vital Signs Temp 100.3 F H 05/01/18 15:09 Pulse 185 H 05/01/18 16:36 Resp 30 H 05/01/18 16:36 BP 120/60 05/01/18 16:36 Pulse Ox 95 05/01/18 16:15 - Labs Result Diagrams: 05/01/18 12:54 05/01/18 12:54 Labs: Laboratory Results - last 24 hr 05/01/18 05/01/18 05/01/18 12:41 12:54 12:54 WBC 15.8 H RBC 3.68 L Hgb 11.4 Hct 34.5 MCV 93.9 MCH 31.1 H MCHC 33.2 RDW 14.2 Plt Count 115 L D MPV 11.0 Neut % (Auto) 91.0 H Lymph % (Auto) 3.1 L [place] % (Auto) 5.2 Eos % (Auto) 0.2 Baso % (Auto) 0.5 Neut # (Auto) 14.4 H Lymph # (Auto) 0.5 L [place] # (Auto) 0.8 Eos # (Auto) 0.0 Baso # (Auto) 0.1 Neutrophils % (Manual) 93 H Band Neutrophils % 1 Lymphocytes % (Manual) 3 L Monocytes % (Manual) 3 Platelet Estimate Slightly decreased L Hypochromasia (manual) Slight Poikilocytosis (manual Slight Anisocytosis (manual) Slight pO2 VBG pH VBG pCO2 VBG HCO3 VBG Total CO2 VBG O2 Sat (Calc) VBG Base Excess VBG Potassium Glucose Lactate Sodium Potassium Chloride Carbon Dioxide Anion Gap BUN Creatinine Est GFR ( Amer) Est GFR (Non-Af Amer) POC Glucose (mg/dL) 236 H Random Glucose Calcium Total Bilirubin AST ALT Alkaline Phosphatase Troponin I NT-Pro-B Natriuret Pep Total Protein Albumin Globulin Albumin/Globulin Ratio TSH 3rd Generation Venous Blood Potassium Influenza Typ A,B (EIA) Negative for flu a/b 05/01/18 05/01/18 12:54 14:53 WBC RBC Hgb Hct MCV MCH MCHC RDW Plt Count MPV Neut % (Auto) Lymph % (Auto) [place] % (Auto) Eos % (Auto) Baso % (Auto) Neut # (Auto) Lymph # (Auto) [place] # (Auto) Eos # (Auto) Baso # (Auto) Neutrophils % (Manual) Band Neutrophils % Lymphocytes % (Manual) Monocytes % (Manual) Platelet Estimate Hypochromasia (manual) Poikilocytosis (manual Anisocytosis (manual) pO2 58 H VBG pH 7.37 VBG pCO2 45 VBG HCO3 24.9 VBG Total CO2 27.4 VBG O2 Sat (Calc) 89.9 H VBG Base Excess 0.3 VBG Potassium 3.0 L Glucose 93 Lactate 3.4 H Sodium 137 139.0 Potassium 3.4 L Chloride 93 L 102.0 Carbon Dioxide 35 H Anion Gap 13 BUN 20 H Creatinine 2.0 H Est GFR ( Amer) 29 Est GFR (Non-Af Amer) 24 POC Glucose (mg/dL) Random Glucose 222 H D Calcium 8.6 Total Bilirubin 0.8 AST 33 ALT 39 Alkaline Phosphatase 64 Troponin I 0.1090 NT-Pro-B Natriuret Pep 12760 H Total Protein 6.6 Albumin 3.8 Globulin 2.7 Albumin/Globulin Ratio 1.4 TSH 3rd Generation < 0.02 L Venous Blood Potassium 3.0 L Influenza Typ A,B (EIA) - EKG Data EKG Interpreted by: Myself (as read by me , above) Assessment & Plan - Assessment and Plan (Free Text) Assessment: 1. Refractory symptomatic svt, then afib,m now nsr after emergent cardioversion. The pt will continue IV amidarone drip for now, and receive IV heparin. Echo to assess LV EF. 2. Pt may have hyperthyroidism, as tsh is low. Needs eval
--- NOTE | 2018-05-01 18:08 | PCM.SEPTIC ---
Sepsis Progress Note - Reassessment Type Date of Evaluation: 05/01/18 Time of Evaluation: 18:00 Reassessment Type: Non-invasive reassessment - Non Invasive Reassessment Were the most recent vital sign reviewed: Yes Vital Sign (Latest): Temp Pulse Resp BP Pulse Ox 100.3 F H 186 H 22 120/61 94 L 05/01/18 15:09 05/01/18 17:33 05/01/18 17:33 05/01/18 17:33 05/01/18 17:33 Cardiovascular: Yes: Tachycardia Respiratory: Yes: Decreased Breath Sounds, Crackles (bilaterally ). No: Accessory Muscle Use Capillary Refill: Normal (Less than 2 sec) Pulses: Normal Radial Skin: Normal Color, Warm - Invasive Reassessment (complete 2 of 4) Was a Central Venous Pressure Measurement obtained within 6 Hours after the presentation of septic shock: No Was a central venous oxygen measurement obtained within 6 hours after the presentation of septic shock: No Was a bedside cardiovascular ultrasound performed within 6 hours after the presentation of septic shock: No Was a passive leg raise performed or was a fluid challenge performed within 6 hrs of the initial fluid bolus: No
[2018-05-01 19:21] LABS: INR 1.3; PROTHROMBIN TIME 13.8 SECONDS (9.7-12.2)
[2018-05-01] MEDS: Piperacillin/Tazobact 2.25 GM in Sodium Chloride 100 ML IVPB SCH (21:10)
[2018-05-01] MEDS: MethylPREDNISolone 40 mg Vial IVP SCH (21:11)
[2018-05-01] MEDS ORDERED: guaiFENesin 100 mg/5 ml Syrup UD PO PRN (23:14)
[2018-05-02] MEDS: Promethazine DM 12.5 mg-30 mg/10 ml Syrup PO PRN ×5 (00:58→23:02)
[2018-05-02] MEDS: MethylPREDNISolone 40 mg Vial IVP SCH ×2 (05:12→10:33)
[2018-05-02 06:12] LABS: BASO % 0.1 % (0.0-2.0); LYMPH # 0.3 K/uL (1.0-4.3); LYMPH % 3.2 % (20.0-40.0); MEAN CELL VOLUME 96.8 fL (81.0-99.0); MEAN CORPUSCULAR HEMOGLOBIN 31.7 pg (27.0-31.0); MEAN CORPUSCULAR HGB CONC 32.7 g/dL (33.0-37.0); MEAN PLATELET VOLUME 11.7 fL (7.2-11.7); MONO # 0.2 K/uL (0.0-0.8); MONO % 2.1 % (0.0-10.0); NEUT # 9.3 K/uL (1.8-7.0); NEUT % 94.6 % (50.0-75.0); PLATELET COUNT 84 K/uL (130-400); RBC 2.91 Mil/uL (3.80-5.20); RED CELL DISTRIBUTION WIDTH 14.9 % (11.5-14.5); WHITE BLOOD COUNT 9.8 K/uL (4.8-10.8)
[2018-05-02 06:38] LABS: HEMOGLOBIN 9.2 g/dL (11.0-16.0)
[2018-05-02 06:48] LABS: ALB/GLOB RATIO 1.3 (1.0-2.1); CALCIUM 7.4 mg/dl (8.6-10.4)
[2018-05-02] MEDS: (Novolin R) Insulin Human Regular 100 units/ml vial SC SCH ×4 (07:56→22:12)
[2018-05-02] MEDS ORDERED: (Novolin R) Insulin Human Regular 100 units/ml vial IVP ONE (08:00)
[2018-05-02] MEDS ORDERED: MethylPREDNISolone 40 mg Vial IVP SCH (08:00)
--- NOTE | 2018-05-02 08:39 | CP.PCM.PN ---
Subjective - Date & Time of Evaluation Date of Evaluation: 05/02/18 Time of Evaluation: 08:35 - Subjective Subjective: events noted After presentation to ED patient developed SVT episode Afib converted to NSR after cardioversion then amiodarone gtt Now on IV heparin, amiodarone. Less wheezing after starting IV steroids; BSs elevated though. Feels much better now Hg decreased- will resume EPO, check iron stores Had dialysis 05/01 in early AM Does not appear to be in CHF now Objective - Vital Signs/Intake and Output Vital Signs (last 24 hours): Temp Pulse Resp BP Pulse Ox 98.2 F 103 H 19 130/53 L 96 05/02/18 08:00 05/02/18 08:00 05/02/18 08:00 05/02/18 08:00 05/02/18 08:00 Intake and Output: 05/02/18 05/02/18 06:59 18:59 Intake Total 664.7 24.2 Balance 664.7 24.2 - Medications Medications: Current Medications Acetaminophen (Tylenol 325mg Tab) 650 mg PO Q6 PRN PRN Reason: pain+fever Calcium Acetate (Phoslo) 667 mg PO BIDCC [facility] Last Admin: 05/02/18 08:05 Dose: 667 mg Famotidine (Pepcid) 20 mg PO DAILY [facility] Last Admin: 05/01/18 18:02 Dose: Not Given Glipizide (Glucotrol) 10 mg PO ACB [facility] Last Admin: 05/02/18 08:01 Dose: 10 mg Piperacillin Sod/Tazobactam (Sod 2.25 gm/ Sodium Chloride) 100 mls @ 200 mls/hr IVPB Q12 [facility]; Protocol Last Admin: 05/01/18 21:10 Dose: 200 mls/hr Heparin Sodium/Sodium Chloride (Heparin 77050 Units/250ml 1/2 Normal Saline) 25,000 units in 250 mls @ 9.525 mls/hr IV .Q24H PRN; Protocol PRN Reason: PROTOCOL Last Titration: 05/02/18 08:01 Dose: 11 units/kg/hr, 7.484 mls/hr Amiodarone HCl 900 mg/ (Dextrose) 500 mls @ 16.67 mls/hr IV .Q24H ONE; Protocol Stop: 05/02/18 23:59 Last Admin: 05/02/18 00:05 Dose: 16.67 mls/hr Insulin Human Regular (Novolin R) 0 unit SC ACHS [facility]; Protocol Last Admin: 05/02/18 07:56 Dose: 12 u Ipratropium [place] (Atrovent) 0.5 mg IH RQ6 [facility] Levothyroxine Sodium (Synthroid) 75 mcg PO DAILY@0630 [facility] Methylprednisolone (Solu-Medrol) 40 mg IVP DAILY [facility] Promethazine HCl/Dextromethorphan (Phenergan Dm Syrup) 10 ml PO Q6 PRN PRN Reason: Cough Last Admin: 05/02/18 06:13 Dose: 10 ml - Labs Labs: 05/02/18 06:08 05/02/18 06:08 PT 13.8 SECONDS (9.7-12.2) H 05/01/18 19:00 INR 1.3 05/01/18 19:00 APTT 103 SECONDS (21-34) H* D 05/02/18 06:09 - Constitutional Appears: No Acute Distress, Chronically Ill - Head Exam Head Exam: ATRAUMATIC, NORMAL INSPECTION - Eye Exam Eye Exam: EOMI, Normal appearance - Neck Exam Neck Exam: Normal Inspection. absent: Tenderness - Respiratory Exam Respiratory Exam: Rhonchi, NORMAL BREATHING PATTERN - Cardiovascular Exam Cardiovascular Exam: REGULAR RHYTHM, +S1 - GI/Abdominal Exam GI & Abdominal Exam: Soft. absent: Tenderness - Extremities Exam Extremities Exam: Normal Inspection. absent: Tenderness - Neurological Exam Neurological Exam: Awake, CN II-XII Intact - Skin Skin Exam: Dry, Warm Assessment and Plan (1) Fluid overload Status: Acute (2) Multiple myeloma Status: Acute (3) ESRD (end stage renal disease) Status: Acute (4) Paroxysmal A-fib Status: Acute (5) COPD exacerbation Status: Acute - Assessment and Plan (Free Text) Plan: IV steroids for COPD exacerbation Amiodarone, heparin drips Afib prevention as per cardio Restart EPO Dialysis in AM, then MWF Recheck TFTs, rec endo eval
--- NOTE | 2018-05-02 08:58 | RAD ---
Date of service: 05/02/2018 HISTORY: SOB COMPARISON: 05/01/2018 FINDINGS: LUNGS: No active pulmonary disease. PLEURA: No significant pleural effusion identified, no pneumothorax apparent. CARDIOVASCULAR: There is atherosclerotic calcification of the aortic arch. Normal cardiac size. No congestive change. Mitral annular calcification incidentally noted. Left central venous infusion port again noted. OSSEOUS STRUCTURES: No significant abnormalities. VISUALIZED UPPER ABDOMEN: Normal. OTHER FINDINGS: None. IMPRESSION: No active disease.
[2018-05-02] MEDS: Ipratropium 0.02% Inhal Soln (0.5 mg/2.5 ml) UD IH SCH ×3 (09:00→20:35)
[2018-05-02 09:10] LABS: BANDS 6 % (0-2); BASOPHIL 1 % (0-2); LYMPHOCYTE 2 % (20-40); MONOCYTE 2 % (0-10); NEUTROPHIL 89 % (50-75); TOTAL CELLS COUNTED 100
[2018-05-02 09:11] LABS: PLATELET ESTIMATE DECREASED (NORMAL)
[2018-05-02 09:12] LABS: ANISOCYTOSIS SLIGHT; BURR CELLS SLIGHT; HYPOCHROMIC SLIGHT; OVALOCYTES SLIGHT; POIKILOCYTOSIS SLIGHT; TEARDROP CELLS SLIGHT
--- NOTE | 2018-05-02 09:49 | CP.CCUPN ---
<Jc Stevens - Last Filed: 05/02/18 15:49> CCU Objective - Vital Signs / Intake & Output Vital Signs (Last 4 hours): Vital Signs Temp Pulse Resp BP Pulse Ox 05/02/18 15:00 89 20 107/43 L 99 05/02/18 14:34 91 H 05/02/18 14:00 94 H 20 119/40 L 97 05/02/18 13:00 85 20 118/42 L 97 05/02/18 12:00 98 F 90 18 118/71 98 Intake and Output (Last 8hrs): Intake & Output 05/02/18 05/02/18 05/02/18 06:59 14:59 22:59 Intake Total 512.5 238.4 75 Balance 512.5 238.4 75 Weight 151 lb Intake: IV 103 0 Intake, IV Amount 359.5 48.4 Left Distal Port Port-A- 100 Cath Left Port-A-Cath 183.5 33.4 Right Forearm 76.0 15.0 Oral 50 190 75 Other: # Bowel Movements 1 - Medications Active Medications: Active Medications Generic Name Dose Route Start Last Admin Trade Name Freq PRN Reason Stop Dose Admin Acetaminophen 650 mg 05/01/18 18:00 Tylenol 325mg Tab PO Q6 PRN pain+fever Amiodarone HCl 200 mg 05/02/18 09:54 05/02/18 10:36 Cordarone PO 200 mg Q12H MARIBETH Administration Apixaban 2.5 mg 05/02/18 11:30 05/02/18 11:45 Eliquis PO 2.5 mg BID MARIBETH Administration Calcium Acetate 667 mg 05/02/18 10:00 05/02/18 14:42 Phoslo PO 667 mg TID MARIBETH Administration Epoetin Eddie 10,000 unit 05/03/18 09:00 Procrit IV MWF MARIBETH Famotidine 20 mg 05/01/18 16:30 05/02/18 10:33 Pepcid PO 20 mg DAILY MARIBETH Administration Glipizide 10 mg 05/02/18 07:30 05/02/18 08:01 Glucotrol PO 10 mg ACB MARIBETH Administration Piperacillin Sod/Tazobactam 100 mls @ 200 mls/hr 05/01/18 22:00 05/02/18 10:38 Sod 2.25 gm/ Sodium Chloride IVPB 200 mls/hr Q12 MARIBETH Administration Protocol Amiodarone HCl 900 mg/ 500 mls @ 16.67 mls/hr 05/02/18 00:04 05/02/18 00:05 Dextrose IV 05/02/18 23:59 16.67 mls/hr .Q24H ONE Administration Protocol 0.5 MG/MIN Insulin Human Regular 0 unit 05/02/18 07:30 05/02/18 11:46 Novolin R SC 6 u ACHS MARIBETH Administration Protocol Ipratropium [place] 0.5 mg 05/02/18 08:30 05/02/18 14:33 Atrovent IH 0.5 mg RQ6 MARIBETH Administration Levothyroxine Sodium 75 mcg 05/03/18 06:30 Synthroid PO DAILY@0630 [facility] Methylprednisolone 40 mg 05/02/18 10:00 05/02/18 10:33 Solu-Medrol IVP 40 mg DAILY MARIBETH Administration Promethazine HCl/Dextromethorphan 10 ml 05/02/18 00:33 05/02/18 11:50 Phenergan Dm Syrup PO 10 ml Q6 PRN Administration Cough - Patient Studies Lab Studies: Microbiology Studies 05/01/18 13:46 Blood Culture - Preliminary Blood NO GROWTH AFTER 24 HOURS 05/01/18 12:47 Blood Culture - Preliminary Blood NO GROWTH AFTER 24 HOURS Lab Studies 05/02/18 05/02/18 05/02/18 Range/Units 11:53 11:53 11:53 WBC (4.8-10.8) K/uL RBC (3.80-5.20) Mil/uL Hgb (11.0-16.0) g/dL Hct (34.0-47.0) % MCV (81.0-99.0) fL MCH (27.0-31.0) pg MCHC (33.0-37.0) g/dL RDW (11.5-14.5) % Plt Count (130-400) K/uL MPV (7.2-11.7) fL Neut % (Auto) (50.0-75.0) % Lymph % (Auto) (20.0-40.0) % [place] % (Auto) (0.0-10.0) % Eos % (Auto) (0.0-4.0) % Baso % (Auto) (0.0-2.0) % Neut # (Auto) (1.8-7.0) K/uL Lymph # (Auto) (1.0-4.3) K/uL [place] # (Auto) (0.0-0.8) K/uL Eos # (Auto) (0.0-0.7) K/uL Baso # (Auto) (0.0-0.2) K/uL Neutrophils % (Manual) (50-75) % Band Neutrophils % (0-2) % Lymphocytes % (Manual) (20-40) % Monocytes % (Manual) (0-10) % Basophils % (Manual) (0-2) % Platelet Estimate (NORMAL) Hypochromasia (manual) Poikilocytosis (manual Anisocytosis (manual) Tear Drop Cells Ovalocytes Nic Cells PT INR APTT Sodium (132-148) mmol/L Potassium (3.6-5.2) mmol/L Chloride (98-107) mmol/L Carbon Dioxide (22-30) mmol/L Anion Gap (10-20) BUN (7-17) mg/dL Creatinine (0.7-1.2) mg/dL Est GFR ( Amer) Est GFR (Non-Af Amer) POC Glucose (mg/dL) (65-110) mg/dL Random Glucose (65-105) mg/dL Lactic Acid (0.7-2.1) mmol/L Calcium (8.6-10.4) mg/dl Phosphorus (2.5-4.5) mg/dL Magnesium (1.6-2.3) mg/dL % Saturation 28 (20-55) Ferritin > 5000.0 ng/mL Total Bilirubin (0.2-1.3) mg/dL AST (14-36) U/L ALT (9-52) U/L Alkaline Phosphatase (38-126) U/L Total Protein (6.3-8.3) g/dL Albumin (3.5-5.0) g/dL Globulin (2.2-3.9) gm/dL Albumin/Globulin Ratio (1.0-2.1) Free T4 2.35 H (0.78-2.19) ng/dL Total T3 0.763 L (1.49-2.60) nmol/L 05/02/18 05/02/18 05/02/18 Range/Units 11:53 10:47 07:41 WBC (4.8-10.8) K/uL RBC (3.80-5.20) Mil/uL Hgb (11.0-16.0) g/dL Hct (34.0-47.0) % MCV (81.0-99.0) fL MCH (27.0-31.0) pg MCHC (33.0-37.0) g/dL RDW (11.5-14.5) % Plt Count (130-400) K/uL MPV (7.2-11.7) fL Neut % (Auto) (50.0-75.0) % Lymph % (Auto) (20.0-40.0) % [place] % (Auto) (0.0-10.0) % Eos % (Auto) (0.0-4.0) % Baso % (Auto) (0.0-2.0) % Neut # (Auto) (1.8-7.0) K/uL Lymph # (Auto) (1.0-4.3) K/uL [place] # (Auto) (0.0-0.8) K/uL Eos # (Auto) (0.0-0.7) K/uL Baso # (Auto) (0.0-0.2) K/uL Neutrophils % (Manual) (50-75) % Band Neutrophils % (0-2) % Lymphocytes % (Manual) (20-40) % Monocytes % (Manual) (0-10) % Basophils % (Manual) (0-2) % Platelet Estimate (NORMAL) Hypochromasia (manual) Poikilocytosis (manual Anisocytosis (manual) Tear Drop Cells Ovalocytes Dodge Cells PT INR APTT Sodium (132-148) mmol/L Potassium (3.6-5.2) mmol/L Chloride (98-107) mmol/L Carbon Dioxide (22-30) mmol/L Anion Gap (10-20) BUN (7-17) mg/dL Creatinine (0.7-1.2) mg/dL Est GFR ( Amer) Est GFR (Non-Af Amer) POC Glucose (mg/dL) 258 H > 500 H* (65-110) mg/dL Random Glucose (65-105) mg/dL Lactic Acid 6.0 H* (0.7-2.1) mmol/L Calcium (8.6-10.4) mg/dl Phosphorus (2.5-4.5) mg/dL Magnesium (1.6-2.3) mg/dL % Saturation (20-55) Ferritin ng/mL Total Bilirubin (0.2-1.3) mg/dL AST (14-36) U/L ALT (9-52) U/L Alkaline Phosphatase (38-126) U/L Total Protein (6.3-8.3) g/dL Albumin (3.5-5.0) g/dL Globulin (2.2-3.9) gm/dL Albumin/Globulin Ratio (1.0-2.1) Free T4 (0.78-2.19) ng/dL Total T3 (1.49-2.60) nmol/L 05/02/18 05/02/18 05/02/18 Range/Units 06:09 06:08 06:08 WBC 9.8 (4.8-10.8) K/uL RBC 2.91 L (3.80-5.20) Mil/uL Hgb 9.2 L D (11.0-16.0) g/dL Hct 28.2 L (34.0-47.0) % MCV 96.8 D (81.0-99.0) fL MCH 31.7 H (27.0-31.0) pg MCHC 32.7 L (33.0-37.0) g/dL RDW 14.9 H (11.5-14.5) % Plt Count 84 L D (130-400) K/uL MPV 11.7 (7.2-11.7) fL Neut % (Auto) 94.6 H (50.0-75.0) % Lymph % (Auto) 3.2 L (20.0-40.0) % [place] % (Auto) 2.1 (0.0-10.0) % Eos % (Auto) 0.0 (0.0-4.0) % Baso % (Auto) 0.1 (0.0-2.0) % Neut # (Auto) 9.3 H (1.8-7.0) K/uL Lymph # (Auto) 0.3 L (1.0-4.3) K/uL [place] # (Auto) 0.2 (0.0-0.8) K/uL Eos # (Auto) 0.0 (0.0-0.7) K/uL Baso # (Auto) 0.0 (0.0-0.2) K/uL Neutrophils % (Manual) 89 H (50-75) % Band Neutrophils % 6 H (0-2) % Lymphocytes % (Manual) 2 L (20-40) % Monocytes % (Manual) 2 (0-10) % Basophils % (Manual) 1 (0-2) % Platelet Estimate Decreased L (NORMAL) Hypochromasia (manual) Slight Poikilocytosis (manual Slight Anisocytosis (manual) Slight Tear Drop Cells Slight Ovalocytes Slight Dodge Cells Slight PT INR APTT 103 H* D Sodium 133 (132-148) mmol/L Potassium 3.7 (3.6-5.2) mmol/L Chloride 93 L (98-107) mmol/L Carbon Dioxide 27 (22-30) mmol/L Anion Gap 16 (10-20) BUN 46 H (7-17) mg/dL Creatinine 3.2 H (0.7-1.2) mg/dL Est GFR ( Amer) 17 Est GFR (Non-Af Amer) 14 POC Glucose (mg/dL) (65-110) mg/dL Random Glucose 644 H* D (65-105) mg/dL Lactic Acid (0.7-2.1) mmol/L Calcium 7.4 L (8.6-10.4) mg/dl Phosphorus 6.4 H (2.5-4.5) mg/dL Magnesium 1.9 (1.6-2.3) mg/dL % Saturation (20-55) Ferritin ng/mL Total Bilirubin 0.6 (0.2-1.3) mg/dL AST 29 (14-36) U/L ALT 40 (9-52) U/L Alkaline Phosphatase 49 (38-126) U/L Total Protein 5.3 L (6.3-8.3) g/dL Albumin 3.0 L D (3.5-5.0) g/dL Globulin 2.3 (2.2-3.9) gm/dL Albumin/Globulin Ratio 1.3 (1.0-2.1) Free T4 (0.78-2.19) ng/dL Total T3 (1.49-2.60) nmol/L 05/02/18 05/01/18 05/01/18 Range/Units 01:33 19:00 18:12 WBC (4.8-10.8) K/uL RBC (3.80-5.20) Mil/uL Hgb (11.0-16.0) g/dL Hct (34.0-47.0) % MCV (81.0-99.0) fL MCH (27.0-31.0) pg MCHC (33.0-37.0) g/dL RDW (11.5-14.5) % Plt Count (130-400) K/uL MPV (7.2-11.7) fL Neut % (Auto) (50.0-75.0) % Lymph % (Auto) (20.0-40.0) % [place] % (Auto) (0.0-10.0) % Eos % (Auto) (0.0-4.0) % Baso % (Auto) (0.0-2.0) % Neut # (Auto) (1.8-7.0) K/uL Lymph # (Auto) (1.0-4.3) K/uL [place] # (Auto) (0.0-0.8) K/uL Eos # (Auto) (0.0-0.7) K/uL Baso # (Auto) (0.0-0.2) K/uL Neutrophils % (Manual) (50-75) % Band Neutrophils % (0-2) % Lymphocytes % (Manual) (20-40) % Monocytes % (Manual) (0-10) % Basophils % (Manual) (0-2) % Platelet Estimate (NORMAL) Hypochromasia (manual) Poikilocytosis (manual Anisocytosis (manual) Tear Drop Cells Ovalocytes Dodge Cells PT 13.8 H INR 1.3 APTT 88 H D 37 H Sodium (132-148) mmol/L Potassium (3.6-5.2) mmol/L Chloride (98-107) mmol/L Carbon Dioxide (22-30) mmol/L Anion Gap (10-20) BUN (7-17) mg/dL Creatinine (0.7-1.2) mg/dL Est GFR ( Amer) Est GFR (Non-Af Amer) POC Glucose (mg/dL) (65-110) mg/dL Random Glucose (65-105) mg/dL Lactic Acid 4.4 H* (0.7-2.1) mmol/L Calcium (8.6-10.4) mg/dl Phosphorus (2.5-4.5) mg/dL Magnesium (1.6-2.3) mg/dL % Saturation (20-55) Ferritin ng/mL Total Bilirubin (0.2-1.3) mg/dL AST (14-36) U/L ALT (9-52) U/L Alkaline Phosphatase (38-126) U/L Total Protein (6.3-8.3) g/dL Albumin (3.5-5.0) g/dL Globulin (2.2-3.9) gm/dL Albumin/Globulin Ratio (1.0-2.1) Free T4 (0.78-2.19) ng/dL Total T3 (1.49-2.60) nmol/L 05/01/18 Range/Units 17:50 WBC (4.8-10.8) K/uL RBC (3.80-5.20) Mil/uL Hgb (11.0-16.0) g/dL Hct (34.0-47.0) % MCV (81.0-99.0) fL MCH (27.0-31.0) pg MCHC (33.0-37.0) g/dL RDW (11.5-14.5) % Plt Count (130-400) K/uL MPV (7.2-11.7) fL Neut % (Auto) (50.0-75.0) % Lymph % (Auto) (20.0-40.0) % [place] % (Auto) (0.0-10.0) % Eos % (Auto) (0.0-4.0) % Baso % (Auto) (0.0-2.0) % Neut # (Auto) (1.8-7.0) K/uL Lymph # (Auto) (1.0-4.3) K/uL [place] # (Auto) (0.0-0.8) K/uL Eos # (Auto) (0.0-0.7) K/uL Baso # (Auto) (0.0-0.2) K/uL Neutrophils % (Manual) (50-75) % Band Neutrophils % (0-2) % Lymphocytes % (Manual) (20-40) % Monocytes % (Manual) (0-10) % Basophils % (Manual) (0-2) % Platelet Estimate (NORMAL) Hypochromasia (manual) Poikilocytosis (manual Anisocytosis (manual) Tear Drop Cells Ovalocytes Dodge Cells PT Cancelled INR Cancelled APTT Cancelled Sodium (132-148) mmol/L Potassium (3.6-5.2) mmol/L Chloride (98-107) mmol/L Carbon Dioxide (22-30) mmol/L Anion Gap (10-20) BUN (7-17) mg/dL Creatinine (0.7-1.2) mg/dL Est GFR ( Amer) Est GFR (Non-Af Amer) POC Glucose (mg/dL) (65-110) mg/dL Random Glucose (65-105) mg/dL Lactic Acid (0.7-2.1) mmol/L Calcium (8.6-10.4) mg/dl Phosphorus (2.5-4.5) mg/dL Magnesium (1.6-2.3) mg/dL % Saturation (20-55) Ferritin ng/mL Total Bilirubin (0.2-1.3) mg/dL AST (14-36) U/L ALT (9-52) U/L Alkaline Phosphatase (38-126) U/L Total Protein (6.3-8.3) g/dL Albumin (3.5-5.0) g/dL Globulin (2.2-3.9) gm/dL Albumin/Globulin Ratio (1.0-2.1) Free T4 (0.78-2.19) ng/dL Total T3 (1.49-2.60) nmol/L Laboratory Results - last 24 hr 05/01/18 05/01/18 05/01/18 17:50 18:12 19:00 WBC RBC Hgb Hct MCV MCH MCHC RDW Plt Count MPV Neut % (Auto) Lymph % (Auto) [place] % (Auto) Eos % (Auto) Baso % (Auto) Neut # (Auto) Lymph # (Auto) [place] # (Auto) Eos # (Auto) Baso # (Auto) Neutrophils % (Manual) Band Neutrophils % Lymphocytes % (Manual) Monocytes % (Manual) Basophils % (Manual) Platelet Estimate Hypochromasia (manual) Poikilocytosis (manual Anisocytosis (manual) Tear Drop Cells Ovalocytes Nic Cells PT Cancelled 13.8 H INR Cancelled 1.3 APTT Cancelled 37 H Sodium Potassium Chloride Carbon Dioxide Anion Gap BUN Creatinine Est GFR ( Amer) Est GFR (Non-Af Amer) POC Glucose (mg/dL) Random Glucose Lactic Acid 4.4 H* Calcium Phosphorus Magnesium % Saturation Ferritin Total Bilirubin AST ALT Alkaline Phosphatase Total Protein Albumin Globulin Albumin/Globulin Ratio Free T4 Total T3 05/02/18 05/02/18 05/02/18 01:33 06:08 06:08 WBC 9.8 RBC 2.91 L Hgb 9.2 L D Hct 28.2 L MCV 96.8 D MCH 31.7 H MCHC 32.7 L RDW 14.9 H Plt Count 84 L D MPV 11.7 Neut % (Auto) 94.6 H Lymph % (Auto) 3.2 L [place] % (Auto) 2.1 Eos % (Auto) 0.0 Baso % (Auto) 0.1 Neut # (Auto) 9.3 H Lymph # (Auto) 0.3 L [place] # (Auto) 0.2 Eos # (Auto) 0.0 Baso # (Auto) 0.0 Neutrophils % (Manual) 89 H Band Neutrophils % 6 H Lymphocytes % (Manual) 2 L Monocytes % (Manual) 2 Basophils % (Manual) 1 Platelet Estimate Decreased L Hypochromasia (manual) Slight Poikilocytosis (manual Slight Anisocytosis (manual) Slight Tear Drop Cells Slight Ovalocytes Slight Dodge Cells Slight PT INR APTT 88 H D Sodium 133 Potassium 3.7 Chloride 93 L Carbon Dioxide 27 Anion Gap 16 BUN 46 H Creatinine 3.2 H Est GFR ( Amer) 17 Est GFR (Non-Af Amer) 14 POC Glucose (mg/dL) Random Glucose 644 H* D Lactic Acid Calcium 7.4 L Phosphorus 6.4 H Magnesium 1.9 % Saturation Ferritin Total Bilirubin 0.6 AST 29 ALT 40 Alkaline Phosphatase 49 Total Protein 5.3 L Albumin 3.0 L D Globulin 2.3 Albumin/Globulin Ratio 1.3 Free T4 Total T3 05/02/18 05/02/18 05/02/18 06:09 07:41 10:47 WBC RBC Hgb Hct MCV MCH MCHC RDW Plt Count MPV Neut % (Auto) Lymph % (Auto) [place] % (Auto) Eos % (Auto) Baso % (Auto) Neut # (Auto) Lymph # (Auto) [place] # (Auto) Eos # (Auto) Baso # (Auto) Neutrophils % (Manual) Band Neutrophils % Lymphocytes % (Manual) Monocytes % (Manual) Basophils % (Manual) Platelet Estimate Hypochromasia (manual) Poikilocytosis (manual Anisocytosis (manual) Tear Drop Cells Ovalocytes Dodge Cells PT INR APTT 103 H* D Sodium Potassium Chloride Carbon Dioxide Anion Gap BUN Creatinine Est GFR ( Amer) Est GFR (Non-Af Amer) POC Glucose (mg/dL) > 500 H* 258 H Random Glucose Lactic Acid Calcium Phosphorus Magnesium % Saturation Ferritin Total Bilirubin AST ALT Alkaline Phosphatase Total Protein Albumin Globulin Albumin/Globulin Ratio Free T4 Total T3 05/02/18 05/02/18 05/02/18 11:53 11:53 11:53 WBC RBC Hgb Hct MCV MCH MCHC RDW Plt Count MPV Neut % (Auto) Lymph % (Auto) [place] % (Auto) Eos % (Auto) Baso % (Auto) Neut # (Auto) Lymph # (Auto) [place] # (Auto) Eos # (Auto) Baso # (Auto) Neutrophils % (Manual) Band Neutrophils % Lymphocytes % (Manual) Monocytes % (Manual) Basophils % (Manual) Platelet Estimate Hypochromasia (manual) Poikilocytosis (manual Anisocytosis (manual) Tear Drop Cells Ovalocytes Nic Cells PT INR APTT Sodium Potassium Chloride Carbon Dioxide Anion Gap BUN Creatinine Est GFR ( Amer) Est GFR (Non-Af Amer) POC Glucose (mg/dL) Random Glucose Lactic Acid 6.0 H* Calcium Phosphorus Magnesium % Saturation 28 Ferritin > 5000.0 Total Bilirubin AST ALT Alkaline Phosphatase Total Protein Albumin Globulin Albumin/Globulin Ratio Free T4 Total T3 0.763 L 05/02/18 11:53 WBC RBC Hgb Hct MCV MCH MCHC RDW Plt Count MPV Neut % (Auto) Lymph % (Auto) [place] % (Auto) Eos % (Auto) Baso % (Auto) Neut # (Auto) Lymph # (Auto) [place] # (Auto) Eos # (Auto) Baso # (Auto) Neutrophils % (Manual) Band Neutrophils % Lymphocytes % (Manual) Monocytes % (Manual) Basophils % (Manual) Platelet Estimate Hypochromasia (manual) Poikilocytosis (manual Anisocytosis (manual) Tear Drop Cells Ovalocytes Nic Cells PT INR APTT Sodium Potassium Chloride Carbon Dioxide Anion Gap BUN Creatinine Est GFR ( Amer) Est GFR (Non-Af Amer) POC Glucose (mg/dL) Random Glucose Lactic Acid Calcium Phosphorus Magnesium % Saturation Ferritin Total Bilirubin AST ALT Alkaline Phosphatase Total Protein Albumin Globulin Albumin/Globulin Ratio Free T4 2.35 H Total T3 Radiology Impressions: Radiology Impressions Chest X-Ray 05/02/18 08:02 IMPRESSION: No active disease. EKG/Cardiology Studies: Cardiology / EKG Studies 05/01/18 16:04 EKG [ELECTROCARDIOGRAM] Routine Comment: Mode Of Transportation: Reason For Exam: tachycardia 05/01/18 17:42 EKG [ELECTROCARDIOGRAM] Stat Comment: Mode Of Transportation: BED Reason For Exam: post cardioversion 05/02/18 10:00 EKG [ELECTROCARDIOGRAM] DAILY Comment: Mode Of Transportation: BED Reason For Exam: qt prolongation 05/03/18 05:00 ELECTROCARDIOGRAM Routine Comment: Mode Of Transportation: Reason For Exam: s/p cardioversion,prolonged qt PERFORMING PHYSICIAN/PROVIDER:: Miranda Moscoso Critical Care Progress Note - Nutrition Nutrition: Nutrition Category Date Time Status Renal Diet [DIET] Diets 05/01/18 Dinner Active Attending/Attestation - Attestation I have personally seen and examined this patient.: Yes I have fully participated in the care of the patient.: Yes I have reviewed all pertinent clinical information: Yes Notes (Text): 05/02/18 15:49 I have seen and examined the patient. Medical records, lab studies, and imaging were reviewed by me and a management plan was formulated on multidisciplinary rounds with resident Dr. Wilder. I agree with their documented assessment and plan. Stopping amiodarone drip and starting oral amiodarone, she has converted to sinus rhythm and is rate controlled. Switching to Eliquis for intermediate anticoagulation, 2.5 mg bid for dialysis patients. Contine steroids at a lower dose for COPD exacerbation, continue nasal canula oxygen. Critical Care Time 35 minutes. Multi-disciplinary rounds were performed with house staff, nursing, speech therapy, respiratory therapy, pharmacy and nutrition with integrated input from the primary team/attending and other consulting services. The documented time is cumulative and includes review of patient data/exams/labs/chart review and examination of the patient on rounds and throughout the day; time is exclusive of any procedures or teaching time. <Shaquille Wilder - Last Filed: 05/02/18 22:01> CCU Subjective - Physician Review Subjective (Free Text): PGY-[address] ICU progress note for Dr Stevens Patient is seen and examined at bedside. Patient is complaining of coughing and shortness of breath, and chest discomfort. Patient wants to get out of bed into chair. Denies fever, chills, chest pain, nausea, vomiting, diarrhea or constipation. Critical Care Time Spent (in minutes): 45 CCU Objective - Vital Signs / Intake & Output Vital Signs (Last 4 hours): Vital Signs Temp Pulse Resp BP Pulse Ox 05/02/18 09:00 84 24 125/50 L 99 05/02/18 08:00 98.2 F 103 H 19 130/53 L 96 05/02/18 07:00 78 18 117/49 L 97 05/02/18 06:52 117/49 L 05/02/18 06:00 77 20 95 05/02/18 05:52 112/49 L Intake and Output (Last 8hrs): Intake & Output 05/01/18 05/02/18 05/02/18 22:59 06:59 14:59 Intake Total 502.2 512.5 48.4 Balance 502.2 512.5 48.4 Weight 151 lb Intake: IV 103 0 Intake, IV Amount 402.2 359.5 48.4 Left Distal Port Port-A- 100 Cath Left Port-A-Cath 99.9 183.5 33.4 Right Forearm 302.3 76.0 15.0 Oral 100 50 Other: # Bowel Movements 1 - Physical Exam Head: Positive for: Atraumatic, Normocephalic Pupils: Positive for: PERRL Extroacular Muscles: Positive for: EOMI Mouth: Positive for: Moist Mucous Membranes Nose (Internal): Positive for: Normal Inspection Neck: Positive for: Normal Range of Motion Respiratory/Chest: Positive for: Decreased Breath Sounds, Rales. Negative for: Accessory Muscle Use Cardiovascular: Positive for: Normal S1, S2, Tachycardic Abdomen: Positive for: Normal Bowel Sounds Back: Positive for: Normal Inspection Upper Extremity: Positive for: Normal Inspection. Negative for: Edema Lower Extremity: Positive for: Normal Inspection. Negative for: Edema Neurological: Positive for: CN II-XII Intact, Speech Normal Skin: Positive for: Warm, Normal Color, Other (skin hematoma in chest area x 2 ) Psychiatric: Positive for: Alert, Oriented x 3, Anxious - Medications Active Medications: Active Medications Generic Name Dose Route Start Last Admin Trade Name Freq PRN Reason Stop Dose Admin Acetaminophen 650 mg 05/01/18 18:00 Tylenol 325mg Tab PO Q6 PRN pain+fever Amiodarone HCl 200 mg 05/02/18 18:00 Cordarone PO Q12H [facility] Apixaban 5 mg 05/02/18 10:00 Eliquis PO BID [facility] Calcium Acetate 667 mg 05/02/18 10:00 Phoslo PO TID [facility] Epoetin Eddie 10,000 unit 05/03/18 09:00 Procrit IV MWF [facility] Famotidine 20 mg 05/01/18 16:30 05/01/18 18:02 Pepcid PO Not Given DAILY [facility] Glipizide 10 mg 05/02/18 07:30 05/02/18 08:01 Glucotrol PO 10 mg ACB MARIBETH Administration Piperacillin Sod/Tazobactam 100 mls @ 200 mls/hr 05/01/18 22:00 05/01/18 21:10 Sod 2.25 gm/ Sodium Chloride IVPB 200 mls/hr Q12 MARIBETH Administration Protocol Amiodarone HCl 900 mg/ 500 mls @ 16.67 mls/hr 05/02/18 00:04 05/02/18 00:05 Dextrose IV 05/02/18 23:59 16.67 mls/hr .Q24H ONE Administration Protocol 0.5 MG/MIN Insulin Human Regular 0 unit 05/02/18 07:30 05/02/18 07:56 Novolin R SC 12 u ACHS [facility] Administration Protocol Ipratropium [place] 0.5 mg 05/02/18 08:30 Atrovent IH RQ6 [facility] Levothyroxine Sodium 75 mcg 05/03/18 06:30 Synthroid PO DAILY@0630 AMRIBETH Methylprednisolone 40 mg 05/02/18 10:00 Solu-Medrol IVP DAILY [facility] Promethazine HCl/Dextromethorphan 10 ml 05/02/18 00:33 05/02/18 06:13 Phenergan Dm Syrup PO 10 ml Q6 PRN Administration Cough - Patient Studies Lab Studies: Lab Studies 05/02/18 05/02/18 05/02/18 Range/Units 07:41 06:09 06:08 WBC 9.8 (4.8-10.8) K/uL RBC 2.91 L (3.80-5.20) Mil/uL Hgb 9.2 L D (11.0-16.0) g/dL Hct 28.2 L (34.0-47.0) % MCV 96.8 D (81.0-99.0) fL MCH 31.7 H (27.0-31.0) pg MCHC 32.7 L (33.0-37.0) g/dL RDW 14.9 H (11.5-14.5) % Plt Count 84 L D (130-400) K/uL MPV 11.7 (7.2-11.7) fL Neut % (Auto) 94.6 H (50.0-75.0) % Lymph % (Auto) 3.2 L (20.0-40.0) % Cooke % (Auto) 2.1 (0.0-10.0) % Eos % (Auto) 0.0 (0.0-4.0) % Baso % (Auto) 0.1 (0.0-2.0) % Neut # (Auto) 9.3 H (1.8-7.0) K/uL Lymph # (Auto) 0.3 L (1.0-4.3) K/uL Cooke # (Auto) 0.2 (0.0-0.8) K/uL Eos # (Auto) 0.0 (0.0-0.7) K/uL Baso # (Auto) 0.0 (0.0-0.2) K/uL Neutrophils % (Manual) 89 H (50-75) % Band Neutrophils % 6 H (0-2) % Lymphocytes % (Manual) 2 L (20-40) % Monocytes % (Manual) 2 (0-10) % Basophils % (Manual) 1 (0-2) % Platelet Estimate Decreased L (NORMAL) Hypochromasia (manual) Slight Poikilocytosis (manual Slight Anisocytosis (manual) Slight Tear Drop Cells Slight Ovalocytes Slight Nic Cells Slight PT INR APTT 103 H* D pO2 (30-55) mm/Hg VBG pH (7.32-7.43) VBG pCO2 (40-60) mmHg VBG HCO3 mmol/L VBG Total CO2 (22-28) mmol/L VBG O2 Sat (Calc) (40-65) % VBG Base Excess (0.0-2.0) mmol/L VBG Potassium (3.6-5.2) mmol/L Glucose (65-105) mg/dl Lactate (0.7-2.1) mmol/L Sodium (132-148) mmol/L Potassium (3.6-5.2) mmol/L Chloride (98-107) mmol/L Carbon Dioxide (22-30) mmol/L Anion Gap (10-20) BUN (7-17) mg/dL Creatinine (0.7-1.2) mg/dL Est GFR ( Amer) Est GFR (Non-Af Amer) POC Glucose (mg/dL) > 500 H* (65-110) mg/dL Random Glucose (65-105) mg/dL Lactic Acid (0.7-2.1) mmol/L Calcium (8.6-10.4) mg/dl Phosphorus (2.5-4.5) mg/dL Magnesium (1.6-2.3) mg/dL Total Bilirubin (0.2-1.3) mg/dL AST (14-36) U/L ALT (9-52) U/L Alkaline Phosphatase (38-126) U/L Troponin I (0.00-0.120) ng/mL NT-Pro-B Natriuret Pep (0-900) pg/mL Total Protein (6.3-8.3) g/dL Albumin (3.5-5.0) g/dL Globulin (2.2-3.9) gm/dL Albumin/Globulin Ratio (1.0-2.1) TSH 3rd Generation (0.46-4.68) mIU/L Venous Blood Potassium (3.6-5.2) mmol/L Influenza Typ A,B (EIA) (NEGATIVE) 05/02/18 05/02/18 05/01/18 Range/Units 06:08 01:33 19:00 WBC (4.8-10.8) K/uL RBC (3.80-5.20) Mil/uL Hgb (11.0-16.0) g/dL Hct (34.0-47.0) % MCV (81.0-99.0) fL MCH (27.0-31.0) pg MCHC (33.0-37.0) g/dL RDW (11.5-14.5) % Plt Count (130-400) K/uL MPV (7.2-11.7) fL Neut % (Auto) (50.0-75.0) % Lymph % (Auto) (20.0-40.0) % Cooke % (Auto) (0.0-10.0) % Eos % (Auto) (0.0-4.0) % Baso % (Auto) (0.0-2.0) % Neut # (Auto) (1.8-7.0) K/uL Lymph # (Auto) (1.0-4.3) K/uL Cooke # (Auto) (0.0-0.8) K/uL Eos # (Auto) (0.0-0.7) K/uL Baso # (Auto) (0.0-0.2) K/uL Neutrophils % (Manual) (50-75) % Band Neutrophils % (0-2) % Lymphocytes % (Manual) (20-40) % Monocytes % (Manual) (0-10) % Basophils % (Manual) (0-2) % Platelet Estimate (NORMAL) Hypochromasia (manual) Poikilocytosis (manual Anisocytosis (manual) Tear Drop Cells Ovalocytes Dodge Cells PT 13.8 H INR 1.3 APTT 88 H D 37 H pO2 (30-55) mm/Hg VBG pH (7.32-7.43) VBG pCO2 (40-60) mmHg VBG HCO3 mmol/L VBG Total CO2 (22-28) mmol/L VBG O2 Sat (Calc) (40-65) % VBG Base Excess (0.0-2.0) mmol/L VBG Potassium (3.6-5.2) mmol/L Glucose (65-105) mg/dl Lactate (0.7-2.1) mmol/L Sodium 133 (132-148) mmol/L Potassium 3.7 (3.6-5.2) mmol/L Chloride 93 L (98-107) mmol/L Carbon Dioxide 27 (22-30) mmol/L Anion Gap 16 (10-20) BUN 46 H (7-17) mg/dL Creatinine 3.2 H (0.7-1.2) mg/dL Est GFR ( Amer) 17 Est GFR (Non-Af Amer) 14 POC Glucose (mg/dL) (65-110) mg/dL Random Glucose 644 H* D (65-105) mg/dL Lactic Acid (0.7-2.1) mmol/L Calcium 7.4 L (8.6-10.4) mg/dl Phosphorus 6.4 H (2.5-4.5) mg/dL Magnesium 1.9 (1.6-2.3) mg/dL Total Bilirubin 0.6 (0.2-1.3) mg/dL AST 29 (14-36) U/L ALT 40 (9-52) U/L Alkaline Phosphatase 49 (38-126) U/L Troponin I (0.00-0.120) ng/mL NT-Pro-B Natriuret Pep (0-900) pg/mL Total Protein 5.3 L (6.3-8.3) g/dL Albumin 3.0 L D (3.5-5.0) g/dL Globulin 2.3 (2.2-3.9) gm/dL Albumin/Globulin Ratio 1.3 (1.0-2.1) TSH 3rd Generation (0.46-4.68) mIU/L Venous Blood Potassium (3.6-5.2) mmol/L Influenza Typ A,B (EIA) (NEGATIVE) 05/01/18 05/01/18 05/01/18 Range/Units 18:12 17:50 14:53 WBC (4.8-10.8) K/uL RBC (3.80-5.20) Mil/uL Hgb (11.0-16.0) g/dL Hct (34.0-47.0) % MCV (81.0-99.0) fL MCH (27.0-31.0) pg MCHC (33.0-37.0) g/dL RDW (11.5-14.5) % Plt Count (130-400) K/uL MPV (7.2-11.7) fL Neut % (Auto) (50.0-75.0) % Lymph % (Auto) (20.0-40.0) % [place] % (Auto) (0.0-10.0) % Eos % (Auto) (0.0-4.0) % Baso % (Auto) (0.0-2.0) % Neut # (Auto) (1.8-7.0) K/uL Lymph # (Auto) (1.0-4.3) K/uL [place] # (Auto) (0.0-0.8) K/uL Eos # (Auto) (0.0-0.7) K/uL Baso # (Auto) (0.0-0.2) K/uL Neutrophils % (Manual) (50-75) % Band Neutrophils % (0-2) % Lymphocytes % (Manual) (20-40) % Monocytes % (Manual) (0-10) % Basophils % (Manual) (0-2) % Platelet Estimate (NORMAL) Hypochromasia (manual) Poikilocytosis (manual Anisocytosis (manual) Tear Drop Cells Ovalocytes Nic Cells PT Cancelled INR Cancelled APTT Cancelled pO2 58 H (30-55) mm/Hg VBG pH 7.37 (7.32-7.43) VBG pCO2 45 (40-60) mmHg VBG HCO3 24.9 mmol/L VBG Total CO2 27.4 (22-28) mmol/L VBG O2 Sat (Calc) 89.9 H (40-65) % VBG Base Excess 0.3 (0.0-2.0) mmol/L VBG Potassium 3.0 L (3.6-5.2) mmol/L Glucose 93 (65-105) mg/dl Lactate 3.4 H (0.7-2.1) mmol/L Sodium 139.0 (132-148) mmol/L Potassium (3.6-5.2) mmol/L Chloride 102.0 (98-107) mmol/L Carbon Dioxide (22-30) mmol/L Anion Gap (10-20) BUN (7-17) mg/dL Creatinine (0.7-1.2) mg/dL Est GFR ( Amer) Est GFR (Non-Af Amer) POC Glucose (mg/dL) (65-110) mg/dL Random Glucose (65-105) mg/dL Lactic Acid 4.4 H* (0.7-2.1) mmol/L Calcium (8.6-10.4) mg/dl Phosphorus (2.5-4.5) mg/dL Magnesium (1.6-2.3) mg/dL Total Bilirubin (0.2-1.3) mg/dL AST (14-36) U/L ALT (9-52) U/L Alkaline Phosphatase (38-126) U/L Troponin I (0.00-0.120) ng/mL NT-Pro-B Natriuret Pep (0-900) pg/mL Total Protein (6.3-8.3) g/dL Albumin (3.5-5.0) g/dL Globulin (2.2-3.9) gm/dL Albumin/Globulin Ratio (1.0-2.1) TSH 3rd Generation (0.46-4.68) mIU/L Venous Blood Potassium 3.0 L (3.6-5.2) mmol/L Influenza Typ A,B (EIA) (NEGATIVE) 05/01/18 05/01/18 05/01/18 Range/Units 12:54 12:54 12:54 WBC 15.8 H (4.8-10.8) K/uL RBC 3.68 L (3.80-5.20) Mil/uL Hgb 11.4 (11.0-16.0) g/dL Hct 34.5 (34.0-47.0) % MCV 93.9 (81.0-99.0) fL MCH 31.1 H (27.0-31.0) pg MCHC 33.2 (33.0-37.0) g/dL RDW 14.2 (11.5-14.5) % Plt Count 115 L D (130-400) K/uL MPV 11.0 (7.2-11.7) fL Neut % (Auto) 91.0 H (50.0-75.0) % Lymph % (Auto) 3.1 L (20.0-40.0) % [place] % (Auto) 5.2 (0.0-10.0) % Eos % (Auto) 0.2 (0.0-4.0) % Baso % (Auto) 0.5 (0.0-2.0) % Neut # (Auto) 14.4 H (1.8-7.0) K/uL Lymph # (Auto) 0.5 L (1.0-4.3) K/uL [place] # (Auto) 0.8 (0.0-0.8) K/uL Eos # (Auto) 0.0 (0.0-0.7) K/uL Baso # (Auto) 0.1 (0.0-0.2) K/uL Neutrophils % (Manual) 93 H (50-75) % Band Neutrophils % 1 (0-2) % Lymphocytes % (Manual) 3 L (20-40) % Monocytes % (Manual) 3 (0-10) % Basophils % (Manual) (0-2) % Platelet Estimate Slightly decreased L (NORMAL) Hypochromasia (manual) Slight Poikilocytosis (manual Slight Anisocytosis (manual) Slight Tear Drop Cells Ovalocytes Dodge Cells PT INR APTT pO2 (30-55) mm/Hg VBG pH (7.32-7.43) VBG pCO2 (40-60) mmHg VBG HCO3 mmol/L VBG Total CO2 (22-28) mmol/L VBG O2 Sat (Calc) (40-65) % VBG Base Excess (0.0-2.0) mmol/L VBG Potassium (3.6-5.2) mmol/L Glucose (65-105) mg/dl Lactate (0.7-2.1) mmol/L Sodium 137 (132-148) mmol/L Potassium 3.4 L (3.6-5.2) mmol/L Chloride 93 L (98-107) mmol/L Carbon Dioxide 35 H (22-30) mmol/L Anion Gap 13 (10-20) BUN 20 H (7-17) mg/dL Creatinine 2.0 H (0.7-1.2) mg/dL Est GFR ( Amer) 29 Est GFR (Non-Af Amer) 24 POC Glucose (mg/dL) (65-110) mg/dL Random Glucose 222 H D (65-105) mg/dL Lactic Acid (0.7-2.1) mmol/L Calcium 8.6 (8.6-10.4) mg/dl Phosphorus (2.5-4.5) mg/dL Magnesium (1.6-2.3) mg/dL Total Bilirubin 0.8 (0.2-1.3) mg/dL AST 33 (14-36) U/L ALT 39 (9-52) U/L Alkaline Phosphatase 64 (38-126) U/L Troponin I 0.1090 (0.00-0.120) ng/mL NT-Pro-B Natriuret Pep 32254 H (0-900) pg/mL Total Protein 6.6 (6.3-8.3) g/dL Albumin 3.8 (3.5-5.0) g/dL Globulin 2.7 (2.2-3.9) gm/dL Albumin/Globulin Ratio 1.4 (1.0-2.1) TSH 3rd Generation < 0.02 L (0.46-4.68) mIU/L Venous Blood Potassium (3.6-5.2) mmol/L Influenza Typ A,B (EIA) Negative for flu a/b (NEGATIVE) 05/01/18 Range/Units 12:41 WBC (4.8-10.8) K/uL RBC (3.80-5.20) Mil/uL Hgb (11.0-16.0) g/dL Hct (34.0-47.0) % MCV (81.0-99.0) fL MCH (27.0-31.0) pg MCHC (33.0-37.0) g/dL RDW (11.5-14.5) % Plt Count (130-400) K/uL MPV (7.2-11.7) fL Neut % (Auto) (50.0-75.0) % Lymph % (Auto) (20.0-40.0) % [place] % (Auto) (0.0-10.0) % Eos % (Auto) (0.0-4.0) % Baso % (Auto) (0.0-2.0) % Neut # (Auto) (1.8-7.0) K/uL Lymph # (Auto) (1.0-4.3) K/uL [place] # (Auto) (0.0-0.8) K/uL Eos # (Auto) (0.0-0.7) K/uL Baso # (Auto) (0.0-0.2) K/uL Neutrophils % (Manual) (50-75) % Band Neutrophils % (0-2) % Lymphocytes % (Manual) (20-40) % Monocytes % (Manual) (0-10) % Basophils % (Manual) (0-2) % Platelet Estimate (NORMAL) Hypochromasia (manual) Poikilocytosis (manual Anisocytosis (manual) Tear Drop Cells Ovalocytes Dodge Cells PT INR APTT pO2 (30-55) mm/Hg VBG pH (7.32-7.43) VBG pCO2 (40-60) mmHg VBG HCO3 mmol/L VBG Total CO2 (22-28) mmol/L VBG O2 Sat (Calc) (40-65) % VBG Base Excess (0.0-2.0) mmol/L VBG Potassium (3.6-5.2) mmol/L Glucose (65-105) mg/dl Lactate (0.7-2.1) mmol/L Sodium (132-148) mmol/L Potassium (3.6-5.2) mmol/L Chloride (98-107) mmol/L Carbon Dioxide (22-30) mmol/L Anion Gap (10-20) BUN (7-17) mg/dL Creatinine (0.7-1.2) mg/dL Est GFR ( Amer) Est GFR (Non-Af Amer) POC Glucose (mg/dL) 236 H (65-110) mg/dL Random Glucose (65-105) mg/dL Lactic Acid (0.7-2.1) mmol/L Calcium (8.6-10.4) mg/dl Phosphorus (2.5-4.5) mg/dL Magnesium (1.6-2.3) mg/dL Total Bilirubin (0.2-1.3) mg/dL AST (14-36) U/L ALT (9-52) U/L Alkaline Phosphatase (38-126) U/L Troponin I (0.00-0.120) ng/mL NT-Pro-B Natriuret Pep (0-900) pg/mL Total Protein (6.3-8.3) g/dL Albumin (3.5-5.0) g/dL Globulin (2.2-3.9) gm/dL Albumin/Globulin Ratio (1.0-2.1) TSH 3rd Generation (0.46-4.68) mIU/L Venous Blood Potassium (3.6-5.2) mmol/L Influenza Typ A,B (EIA) (NEGATIVE) Laboratory Results - last 24 hr 05/01/18 05/01/18 05/01/18 12:41 12:54 12:54 WBC 15.8 H RBC 3.68 L Hgb 11.4 Hct 34.5 MCV 93.9 MCH 31.1 H MCHC 33.2 RDW 14.2 Plt Count 115 L D MPV 11.0 Neut % (Auto) 91.0 H Lymph % (Auto) 3.1 L [place] % (Auto) 5.2 Eos % (Auto) 0.2 Baso % (Auto) 0.5 Neut # (Auto) 14.4 H Lymph # (Auto) 0.5 L [place] # (Auto) 0.8 Eos # (Auto) 0.0 Baso # (Auto) 0.1 Neutrophils % (Manual) 93 H Band Neutrophils % 1 Lymphocytes % (Manual) 3 L Monocytes % (Manual) 3 Basophils % (Manual) Platelet Estimate Slightly decreased L Hypochromasia (manual) Slight Poikilocytosis (manual Slight Anisocytosis (manual) Slight Tear Drop Cells Ovalocytes Nic Cells PT INR APTT pO2 VBG pH VBG pCO2 VBG HCO3 VBG Total CO2 VBG O2 Sat (Calc) VBG Base Excess VBG Potassium Glucose Lactate Sodium Potassium Chloride Carbon Dioxide Anion Gap BUN Creatinine Est GFR ( Amer) Est GFR (Non-Af Amer) POC Glucose (mg/dL) 236 H Random Glucose Lactic Acid Calcium Phosphorus Magnesium Total Bilirubin AST ALT Alkaline Phosphatase Troponin I NT-Pro-B Natriuret Pep Total Protein Albumin Globulin Albumin/Globulin Ratio TSH 3rd Generation Venous Blood Potassium Influenza Typ A,B (EIA) Negative for flu a/b 05/01/18 05/01/18 05/01/18 12:54 14:53 17:50 WBC RBC Hgb Hct MCV MCH MCHC RDW Plt Count MPV Neut % (Auto) Lymph % (Auto) [place] % (Auto) Eos % (Auto) Baso % (Auto) Neut # (Auto) Lymph # (Auto) [place] # (Auto) Eos # (Auto) Baso # (Auto) Neutrophils % (Manual) Band Neutrophils % Lymphocytes % (Manual) Monocytes % (Manual) Basophils % (Manual) Platelet Estimate Hypochromasia (manual) Poikilocytosis (manual Anisocytosis (manual) Tear Drop Cells Ovalocytes Nic Cells PT Cancelled INR Cancelled APTT Cancelled pO2 58 H VBG pH 7.37 VBG pCO2 45 VBG HCO3 24.9 VBG Total CO2 27.4 VBG O2 Sat (Calc) 89.9 H VBG Base Excess 0.3 VBG Potassium 3.0 L Glucose 93 Lactate 3.4 H Sodium 137 139.0 Potassium 3.4 L Chloride 93 L 102.0 Carbon Dioxide 35 H Anion Gap 13 BUN 20 H Creatinine 2.0 H Est GFR ( Amer) 29 Est GFR (Non-Af Amer) 24 POC Glucose (mg/dL) Random Glucose 222 H D Lactic Acid Calcium 8.6 Phosphorus Magnesium Total Bilirubin 0.8 AST 33 ALT 39 Alkaline Phosphatase 64 Troponin I 0.1090 NT-Pro-B Natriuret Pep 13943 H Total Protein 6.6 Albumin 3.8 Globulin 2.7 Albumin/Globulin Ratio 1.4 TSH 3rd Generation < 0.02 L Venous Blood Potassium 3.0 L Influenza Typ A,B (EIA) 05/01/18 05/01/18 05/02/18 18:12 19:00 01:33 WBC RBC Hgb Hct MCV MCH MCHC RDW Plt Count MPV Neut % (Auto) Lymph % (Auto) [place] % (Auto) Eos % (Auto) Baso % (Auto) Neut # (Auto) Lymph # (Auto) [place] # (Auto) Eos # (Auto) Baso # (Auto) Neutrophils % (Manual) Band Neutrophils % Lymphocytes % (Manual) Monocytes % (Manual) Basophils % (Manual) Platelet Estimate Hypochromasia (manual) Poikilocytosis (manual Anisocytosis (manual) Tear Drop Cells Ovalocytes Nic Cells PT 13.8 H INR 1.3 APTT 37 H 88 H D pO2 VBG pH VBG pCO2 VBG HCO3 VBG Total CO2 VBG O2 Sat (Calc) VBG Base Excess VBG Potassium Glucose Lactate Sodium Potassium Chloride Carbon Dioxide Anion Gap BUN Creatinine Est GFR ( Amer) Est GFR (Non-Af Amer) POC Glucose (mg/dL) Random Glucose Lactic Acid 4.4 H* Calcium Phosphorus Magnesium Total Bilirubin AST ALT Alkaline Phosphatase Troponin I NT-Pro-B Natriuret Pep Total Protein Albumin Globulin Albumin/Globulin Ratio TSH 3rd Generation Venous Blood Potassium Influenza Typ A,B (EIA) 05/02/18 05/02/18 05/02/18 06:08 06:08 06:09 WBC 9.8 RBC 2.91 L Hgb 9.2 L D Hct 28.2 L MCV 96.8 D MCH 31.7 H MCHC 32.7 L RDW 14.9 H Plt Count 84 L D MPV 11.7 Neut % (Auto) 94.6 H Lymph % (Auto) 3.2 L [place] % (Auto) 2.1 Eos % (Auto) 0.0 Baso % (Auto) 0.1 Neut # (Auto) 9.3 H Lymph # (Auto) 0.3 L [place] # (Auto) 0.2 Eos # (Auto) 0.0 Baso # (Auto) 0.0 Neutrophils % (Manual) 89 H Band Neutrophils % 6 H Lymphocytes % (Manual) 2 L Monocytes % (Manual) 2 Basophils % (Manual) 1 Platelet Estimate Decreased L Hypochromasia (manual) Slight Poikilocytosis (manual Slight Anisocytosis (manual) Slight Tear Drop Cells Slight Ovalocytes Slight Dodge Cells Slight PT INR APTT 103 H* D pO2 VBG pH VBG pCO2 VBG HCO3 VBG Total CO2 VBG O2 Sat (Calc) VBG Base Excess VBG Potassium Glucose Lactate Sodium 133 Potassium 3.7 Chloride 93 L Carbon Dioxide 27 Anion Gap 16 BUN 46 H Creatinine 3.2 H Est GFR ( Amer) 17 Est GFR (Non-Af Amer) 14 POC Glucose (mg/dL) Random Glucose 644 H* D Lactic Acid Calcium 7.4 L Phosphorus 6.4 H Magnesium 1.9 Total Bilirubin 0.6 AST 29 ALT 40 Alkaline Phosphatase 49 Troponin I NT-Pro-B Natriuret Pep Total Protein 5.3 L Albumin 3.0 L D Globulin 2.3 Albumin/Globulin Ratio 1.3 TSH 3rd Generation Venous Blood Potassium Influenza Typ A,B (EIA) 05/02/18 07:41 WBC RBC Hgb Hct MCV MCH MCHC RDW Plt Count MPV Neut % (Auto) Lymph % (Auto) [place] % (Auto) Eos % (Auto) Baso % (Auto) Neut # (Auto) Lymph # (Auto) [place] # (Auto) Eos # (Auto) Baso # (Auto) Neutrophils % (Manual) Band Neutrophils % Lymphocytes % (Manual) Monocytes % (Manual) Basophils % (Manual) Platelet Estimate Hypochromasia (manual) Poikilocytosis (manual Anisocytosis (manual) Tear Drop Cells Ovalocytes Dodge Cells PT INR APTT pO2 VBG pH VBG pCO2 VBG HCO3 VBG Total CO2 VBG O2 Sat (Calc) VBG Base Excess VBG Potassium Glucose Lactate Sodium Potassium Chloride Carbon Dioxide Anion Gap BUN Creatinine Est GFR ( Amer) Est GFR (Non-Af Amer) POC Glucose (mg/dL) > 500 H* Random Glucose Lactic Acid Calcium Phosphorus Magnesium Total Bilirubin AST ALT Alkaline Phosphatase Troponin I NT-Pro-B Natriuret Pep Total Protein Albumin Globulin Albumin/Globulin Ratio TSH 3rd Generation Venous Blood Potassium Influenza Typ A,B (EIA) Radiology Impressions: Radiology Impressions Chest X-Ray 05/01/18 12:41 IMPRESSION: No active disease. Chest X-Ray 05/02/18 08:02 IMPRESSION: No active disease. EKG/Cardiology Studies: Cardiology / EKG Studies 05/01/18 12:41 ELECTROCARDIOGRAM Stat Comment: Mode Of Transportation: BED Reason For Exam: SOB 05/01/18 13:16 ELECTROCARDIOGRAM Stat Comment: Mode Of Transportation: BED Reason For Exam: SOB 05/01/18 16:04 EKG [ELECTROCARDIOGRAM] Routine Comment: Mode Of Transportation: Reason For Exam: tachycardia 05/01/18 17:42 EKG [ELECTROCARDIOGRAM] Stat Comment: Mode Of Transportation: BED Reason For Exam: post cardioversion Fingerstick Blood Sugar Results: 236 Review of Systems - Review of Systems All systems: reviewed and no additional remarkable complaints except Review of Systems: as stated in HPI Critical Care Progress Note - Nutrition Nutrition: Nutrition Category Date Time Status Renal Diet [DIET] Diets 05/01/18 Dinner Active Assessment/Plan - Assessment and Plan (Free Text) Plan: 83 y/o female with PMHx of COPD, CHF, ESRD on HD MWF, DM, Afib, anemia, MM, and hypothyroidism presents to the ED with SOB x 3 days transferred to ICU for management of new onset SVT, cardioverted by cardiology. Neuro AAOx3 no acute problems Cardio amiodorone and cardizem - hypotension, rapid heart rate refractory to medication cardioconversion by cardiology- 75, 200 Joules of synchronized shock - converted to NS amiodarone drip -- D/C amiodarone 200mg PO Q12H Heparin drip - D/c follow up Heparin ab panel Eliquis 2.5 bid 2x NS bolus total given Cardio - Dr Gold f/u Echo Pulm Chest Xray - no active disease hx of COPD, CHF Solumedrol 40mg IVP Q8H Pulm - Dr Kessler on O2 via NC GI Renal diet pepcid Renal ESRD HD MWF Renal - Dr Fly Aly -low TSH - patient on synthroid at home - Dr Mays - Endo consult ID Code sepsis lactic acid 6.0 repeat lactic acid zosyn IVPB Q12H f/u Bcx and UCx f/u am labs PPX eliquis tylenol PRN Pepcid 20mg PO Daily Plan discussed with Dr Checo Wilder, PGY-1 - Date & Time Date: 05/02/18 Time: 09:00
--- NOTE | 2018-05-02 09:51 | CP.PCM.PN ---
Subjective - Date & Time of Evaluation Date of Evaluation: 05/02/18 Time of Evaluation: 09:48 - Subjective Subjective: pt feels well, was coughing, dry, in the chair, in nsr. ECG post cardioversion was 523 Objective - Vital Signs/Intake and Output Vital Signs (last 24 hours): Temp Pulse Resp BP Pulse Ox 98.2 F 94 H 18 125/50 L 95 05/02/18 08:00 05/02/18 09:00 05/02/18 09:00 05/02/18 09:00 05/02/18 09:00 Intake and Output: 05/02/18 05/02/18 06:59 18:59 Intake Total 664.7 48.4 Balance 664.7 48.4 - Medications Medications: Current Medications Acetaminophen (Tylenol 325mg Tab) 650 mg PO Q6 PRN PRN Reason: pain+fever Amiodarone HCl (Cordarone) 200 mg PO Q12H [facility] Apixaban (Eliquis) 5 mg PO BID [facility] Calcium Acetate (Phoslo) 667 mg PO TID [facility] Epoetin Eddie (Procrit) 10,000 unit IV MWF [facility] Famotidine (Pepcid) 20 mg PO DAILY [facility] Last Admin: 05/01/18 18:02 Dose: Not Given Glipizide (Glucotrol) 10 mg PO ACB [facility] Last Admin: 05/02/18 08:01 Dose: 10 mg Piperacillin Sod/Tazobactam (Sod 2.25 gm/ Sodium Chloride) 100 mls @ 200 mls/hr IVPB Q12 [facility]; Protocol Last Admin: 05/01/18 21:10 Dose: 200 mls/hr Amiodarone HCl 900 mg/ (Dextrose) 500 mls @ 16.67 mls/hr IV .Q24H ONE; Protocol Stop: 05/02/18 23:59 Last Admin: 05/02/18 00:05 Dose: 16.67 mls/hr Insulin Human Regular (Novolin R) 0 unit SC ACHS [facility]; Protocol Last Admin: 05/02/18 07:56 Dose: 12 u Ipratropium [place] (Atrovent) 0.5 mg IH RQ6 [facility] Levothyroxine Sodium (Synthroid) 75 mcg PO DAILY@0630 [facility] Methylprednisolone (Solu-Medrol) 40 mg IVP DAILY [facility] Promethazine HCl/Dextromethorphan (Phenergan Dm Syrup) 10 ml PO Q6 PRN PRN Reason: Cough Last Admin: 05/02/18 06:13 Dose: 10 ml - Labs Labs: 05/02/18 06:08 05/02/18 06:08 PT 13.8 SECONDS (9.7-12.2) H 05/01/18 19:00 INR 1.3 05/01/18 19:00 APTT 103 SECONDS (21-34) H* D 05/02/18 06:09 Assessment and Plan - Assessment and Plan (Free Text) Assessment: 1. Pt is stable in sinus, will change IV heparin to eliquis bid, iv amiod to amio po 200 bid. 2. QTC is a little long, will observe off drip, daily ecg follow qtc. 3. Echo 04/14/2018 Normal Lv EF, marked MAC, moderate pulmonary HTN/. 4. No clinical chf on exam., 5. Await t3 and t4
[2018-05-02] MEDS: Piperacillin/Tazobact 2.25 GM in Sodium Chloride 100 ML IVPB SCH ×2 (10:38→21:05)
[2018-05-02 12:57] LABS: T3 0.763 nmol/L (1.49-2.60)
[2018-05-02 13:52] LABS: FERRITIN > 5000.0 ng/mL
--- NOTE | 2018-05-02 14:36 | CP.PCM.PN ---
Subjective - Date & Time of Evaluation Date of Evaluation: 05/02/18 Time of Evaluation: 07:50 - Subjective Subjective: Seen and examined this morning. Patient is lying on bed comfortable. c/o cough,slept only few hours at night. Not sob on sinus rhythm Objective - Vital Signs/Intake and Output Vital Signs (last 24 hours): Temp Pulse Resp BP Pulse Ox 98 F 94 H 20 119/40 L 97 05/02/18 12:00 05/02/18 14:00 05/02/18 14:00 05/02/18 14:00 05/02/18 14:00 Intake and Output: 05/02/18 05/02/18 06:59 18:59 Intake Total 664.7 238.4 Balance 664.7 238.4 - Medications Medications: Current Medications Acetaminophen (Tylenol 325mg Tab) 650 mg PO Q6 PRN PRN Reason: pain+fever Amiodarone HCl (Cordarone) 200 mg PO Q12H [facility] Last Admin: 05/02/18 10:36 Dose: 200 mg Apixaban (Eliquis) 2.5 mg PO BID [facility] Last Admin: 05/02/18 11:45 Dose: 2.5 mg Calcium Acetate (Phoslo) 667 mg PO TID [facility] Last Admin: 05/02/18 10:36 Dose: Not Given Epoetin Eddie (Procrit) 10,000 unit IV F [facility] Famotidine (Pepcid) 20 mg PO DAILY [facility] Last Admin: 05/02/18 10:33 Dose: 20 mg Glipizide (Glucotrol) 10 mg PO ACB [facility] Last Admin: 05/02/18 08:01 Dose: 10 mg Piperacillin Sod/Tazobactam (Sod 2.25 gm/ Sodium Chloride) 100 mls @ 200 mls/hr IVPB Q12 [facility]; Protocol Last Admin: 05/02/18 10:38 Dose: 200 mls/hr Amiodarone HCl 900 mg/ (Dextrose) 500 mls @ 16.67 mls/hr IV .Q24H ONE; Protocol Stop: 05/02/18 23:59 Last Admin: 05/02/18 00:05 Dose: 16.67 mls/hr Insulin Human Regular (Novolin R) 0 unit SC ACHS [facility]; Protocol Last Admin: 05/02/18 11:46 Dose: 6 u Ipratropium [place] (Atrovent) 0.5 mg IH RQ6 [facility] Levothyroxine Sodium (Synthroid) 75 mcg PO DAILY@0630 [facility] Methylprednisolone (Solu-Medrol) 40 mg IVP DAILY [facility] Last Admin: 05/02/18 10:33 Dose: 40 mg Promethazine HCl/Dextromethorphan (Phenergan Dm Syrup) 10 ml PO Q6 PRN PRN Reason: Cough Last Admin: 05/02/18 11:50 Dose: 10 ml - Labs Labs: 05/02/18 06:08 05/02/18 06:08 PT 13.8 SECONDS (9.7-12.2) H 05/01/18 19:00 INR 1.3 05/01/18 19:00 APTT 103 SECONDS (21-34) H* D 05/02/18 06:09 - Constitutional Appears: Non-toxic, No Acute Distress - Head Exam Head Exam: NORMAL INSPECTION - Eye Exam Eye Exam: Normal appearance - ENT Exam ENT Exam: Mucous Membranes Moist - Neck Exam Neck Exam: Full ROM - Respiratory Exam Respiratory Exam: Rhonchi - Cardiovascular Exam Cardiovascular Exam: REGULAR RHYTHM - GI/Abdominal Exam GI & Abdominal Exam: Soft, Normal Bowel Sounds - Extremities Exam Extremities Exam: Full ROM - Back Exam Back Exam: NORMAL INSPECTION - Neurological Exam Neurological Exam: Awake, Oriented x3 - Psychiatric Exam Psychiatric exam: Normal Mood - Skin Skin Exam: Dry, Normal Color, Warm Assessment and Plan - Assessment and Plan (Free Text) Assessment: 83 y/o female with PMHx of COPD, CHF, ESRD on HD MWF, DM, Afib, anemia, MM, and hypothyroidism presents to the ED with SOB x 3 days. SOB occurs both on exertion and at rest. Patient was sent to the ED from Dr Martinez's office because she did not look well. she was brought in for respiratory tract infection. In the ER before she was admitted she went into SVT followed by afib with RVR. She was given adenosine which broke her tachycardia to sinus then went back to afib with RVR . She was hypotensive and afib with rate of 180ies. Amiodarone bolus given and brought to ICU started on amiodarone drip. Patient was not responding she was tachy with hypotension needed shock to cardiovert Plan: 1.Afib with RVR In sinus rhythm after cardioversion Off heparin drip,started on Eliquis. low platelets.Monitor platelets and HIT panel continue Amiodarone oral as per electric serviceman QTC pro longed ,daily EKG and follow TSH low on synthroid 150 2. PNA/sepsis on admission patient w/ leukocytosis and low grade fever negative blood cultures.lactate high zosyn 2.25 g q12h, renally dosed s/p andrew pulcari Mai consulted, recs appreciated 3.Thrombocytopenia monitor platelet and do HIT panel off heparin,now on Eliquis 4.COPD -solumedrol,Atrovent inh,avoid proventil -incentive spirometer 4.ESRD Dr Bill on board -on HD MWF -BUN/Cr on admission 05/06 -avoid fluids 5.DM2 and hyperglycemia Likely due to steroid Refuses sq insulin,10uits IV insulin R given this morning home glipizide 6.Hx of hypothyroidism -admitting TSH < 0.02 she was on levothyroxine 150mcg we will start back on 75mcg Free 4 and T3 noted we will request endocrine consult patient is on Amiodarone s/p tachy 7.ASCVD continue with home crestor 5 mg DVT ppx: Eliquis GI ppx: pepcid 20 mg PO Diet: Renal
--- NOTE | 2018-05-02 18:54 | CP.PCM.PN ---
Subjective - Date & Time of Evaluation Date of Evaluation: 05/02/18 Time of Evaluation: 18:54 Objective - Vital Signs/Intake and Output Vital Signs (last 24 hours): Temp Pulse Resp BP Pulse Ox 98.1 F 89 18 131/47 L 96 05/02/18 16:00 05/02/18 18:00 05/02/18 18:00 05/02/18 18:00 05/02/18 18:00 Intake and Output: 05/02/18 05/02/18 06:59 18:59 Intake Total 664.7 413.4 Balance 664.7 413.4 - Medications Medications: Current Medications Acetaminophen (Tylenol 325mg Tab) 650 mg PO Q6 PRN PRN Reason: pain+fever Amiodarone HCl (Cordarone) 200 mg PO Q12H [facility] Last Admin: 05/02/18 10:36 Dose: 200 mg Apixaban (Eliquis) 2.5 mg PO BID [facility] Last Admin: 05/02/18 17:17 Dose: 2.5 mg Calcium Acetate (Phoslo) 667 mg PO TID [facility] Last Admin: 05/02/18 17:17 Dose: 667 mg Epoetin Eddie (Procrit) 10,000 unit IV MWF [facility] Famotidine (Pepcid) 20 mg PO DAILY [facility] Last Admin: 05/02/18 10:33 Dose: 20 mg Glipizide (Glucotrol) 10 mg PO ACB [facility] Last Admin: 05/02/18 08:01 Dose: 10 mg Piperacillin Sod/Tazobactam (Sod 2.25 gm/ Sodium Chloride) 100 mls @ 200 mls/hr IVPB Q12 [facility]; Protocol Last Admin: 05/02/18 10:38 Dose: 200 mls/hr Amiodarone HCl 900 mg/ (Dextrose) 500 mls @ 16.67 mls/hr IV .Q24H ONE; Protocol Stop: 05/02/18 23:59 Last Admin: 05/02/18 00:05 Dose: 16.67 mls/hr Insulin Human Regular (Novolin R) 0 unit SC ACHS [facility]; Protocol Last Admin: 05/02/18 17:17 Dose: 6 u Ipratropium [place] (Atrovent) 0.5 mg IH RQ6 [facility] Last Admin: 05/02/18 14:33 Dose: 0.5 mg Levothyroxine Sodium (Synthroid) 75 mcg PO DAILY@0630 [facility] Methylprednisolone (Solu-Medrol) 40 mg IVP DAILY [facility] Last Admin: 05/02/18 10:33 Dose: 40 mg Promethazine HCl/Dextromethorphan (Phenergan Dm Syrup) 10 ml PO Q6 PRN PRN Reason: Cough Last Admin: 05/02/18 17:17 Dose: 10 ml - Labs Labs: 05/02/18 06:08 05/02/18 06:08 PT 13.8 SECONDS (9.7-12.2) H 05/01/18 19:00 INR 1.3 05/01/18 19:00 APTT 103 SECONDS (21-34) H* D 05/02/18 06:09
[2018-05-03] MEDS: Ipratropium 0.02% Inhal Soln (0.5 mg/2.5 ml) UD IH SCH ×2 (01:00→07:53)
[2018-05-03] MEDS: Promethazine DM 12.5 mg-30 mg/10 ml Syrup PO PRN ×3 (05:39→17:57)
[2018-05-03] MEDS: Levothyroxine 75 MCG TAB PO SCH (05:39)
[2018-05-03 06:34] LABS: BASO % 0.1 % (0.0-2.0); HEMOGLOBIN 9.7 g/dL (11.0-16.0); LYMPH # 0.7 K/uL (1.0-4.3); LYMPH % 2.2 % (20.0-40.0); MEAN CORPUSCULAR HEMOGLOBIN 31.1 pg (27.0-31.0); MEAN CORPUSCULAR HGB CONC 32.7 g/dL (33.0-37.0); MEAN PLATELET VOLUME 11.7 fL (7.2-11.7); MONO # 0.6 K/uL (0.0-0.8); MONO % 1.8 % (0.0-10.0); NEUT # 31.3 K/uL (1.8-7.0); NEUT % 95.9 % (50.0-75.0); PLATELET COUNT 141 K/uL (130-400); RBC 3.12 Mil/uL (3.80-5.20); RED CELL DISTRIBUTION WIDTH 14.6 % (11.5-14.5); WHITE BLOOD COUNT 32.7 K/uL (4.8-10.8)
[2018-05-03 06:56] LABS: ALB/GLOB RATIO 1.3 (1.0-2.1); ALBUMIN 3.3 g/dL (3.5-5.0); ALT/SGPT 38 U/L (9-52); AST/SGOT 26 U/L (14-36); BLOOD UREA NITROGEN 72 mg/dL (7-17); CALCIUM 8.4 mg/dl (8.6-10.4); GFR NON-AFRICAN AMERICAN 9
[2018-05-03] MEDS: (Novolin R) Insulin Human Regular 100 units/ml vial SC SCH ×2 (07:56→12:03)
--- NOTE | 2018-05-03 08:25 | CP.PCM.PN ---
Subjective - Date & Time of Evaluation Date of Evaluation: 05/03/18 Time of Evaluation: 08:22 - Subjective Subjective: Alert; still wheezing Remains in NSR Maintained on amiodarone po and eliquis Hg improved no CPs, nausea. vomiting for dialysis today Objective - Vital Signs/Intake and Output Vital Signs (last 24 hours): Temp Pulse Resp BP Pulse Ox 98 F 82 14 105/53 L 99 05/03/18 04:00 05/03/18 07:22 05/03/18 07:22 05/03/18 07:22 05/03/18 07:22 Intake and Output: 05/03/18 05/03/18 06:59 18:59 Intake Total 200 Balance 200 - Medications Medications: Current Medications Acetaminophen (Tylenol 325mg Tab) 650 mg PO Q6 PRN PRN Reason: pain+fever Amiodarone HCl (Cordarone) 200 mg PO Q12H [facility] Last Admin: 05/02/18 21:13 Dose: 200 mg Apixaban (Eliquis) 2.5 mg PO BID [facility] Last Admin: 05/02/18 17:17 Dose: 2.5 mg Calcium Acetate (Phoslo) 667 mg PO TID [facility] Last Admin: 05/02/18 17:17 Dose: 667 mg Epoetin Eddie (Procrit) 10,000 unit IV MWF [facility] Famotidine (Pepcid) 20 mg PO DAILY [facility] Last Admin: 05/02/18 10:33 Dose: 20 mg Glipizide (Glucotrol) 10 mg PO ACBD [facility] Last Admin: 05/03/18 07:56 Dose: 10 mg Piperacillin Sod/Tazobactam (Sod 2.25 gm/ Sodium Chloride) 100 mls @ 200 mls/hr IVPB Q12 [facility]; Protocol Last Admin: 05/02/18 21:05 Dose: 200 mls/hr Insulin Human Regular (Novolin R) 0 unit SC ACHS [facility]; Protocol Last Admin: 05/03/18 07:56 Dose: 10 u Ipratropium [place] (Atrovent) 0.5 mg IH RQ6 [facility] Last Admin: 05/03/18 07:53 Dose: 0.5 mg Levothyroxine Sodium (Synthroid) 75 mcg PO DAILY@0630 [facility] Last Admin: 05/03/18 05:39 Dose: 75 mcg Methylprednisolone (Solu-Medrol) 40 mg IVP DAILY [facility] Last Admin: 05/02/18 10:33 Dose: 40 mg Promethazine HCl/Dextromethorphan (Phenergan Dm Syrup) 10 ml PO Q6 PRN PRN Reason: Cough Last Admin: 05/03/18 05:39 Dose: 10 ml - Labs Labs: 05/03/18 06:24 05/03/18 06:21 PT 13.8 SECONDS (9.7-12.2) H 05/01/18 19:00 INR 1.3 05/01/18 19:00 APTT 103 SECONDS (21-34) H* D 05/02/18 06:09 - Constitutional Appears: No Acute Distress, Chronically Ill - Head Exam Head Exam: ATRAUMATIC, NORMAL INSPECTION - Eye Exam Eye Exam: EOMI, Normal appearance - Neck Exam Neck Exam: Normal Inspection. absent: Tenderness - Respiratory Exam Respiratory Exam: Rhonchi, Wheezes - Cardiovascular Exam Cardiovascular Exam: Tachycardia, +S1 - GI/Abdominal Exam GI & Abdominal Exam: Soft. absent: Tenderness - Extremities Exam Extremities Exam: Normal Inspection. absent: Tenderness - Neurological Exam Neurological Exam: Awake, CN II-XII Intact - Skin Skin Exam: Dry, Warm Assessment and Plan (1) Fluid overload Status: Acute (2) Multiple myeloma Status: Acute (3) ESRD (end stage renal disease) Status: Acute (4) Paroxysmal A-fib Status: Acute (5) COPD exacerbation Status: Acute - Assessment and Plan (Free Text) Plan: in crease binders as phos elevated Dialysis now and MWF, with adequate UF Same EPO COPD management as per ICU team
[2018-05-03 08:34] LABS: BANDS 17 % (0-2); LYMPHOCYTE 3 % (20-40); NEUTROPHIL 79 % (50-75); REACTIVE LYMPHOCYTES 1 % (0-0); TOTAL CELLS COUNTED 100
[2018-05-03 08:35] LABS: PLATELET ESTIMATE NORMAL (NORMAL); TOXIC GRANULATION PRESENT
[2018-05-03 08:36] LABS: BURR CELLS SLIGHT; LARGE PLATELETS PRESENT
[2018-05-03] MEDS: MethylPREDNISolone 40 mg Vial IVP SCH (09:50)
[2018-05-03] MEDS: Piperacillin/Tazobact 2.25 GM in Sodium Chloride 100 ML IVPB SCH (09:51)
--- NOTE | 2018-05-03 10:27 | CP.PCM.PN ---
Subjective - Date & Time of Evaluation Date of Evaluation: 05/03/18 Time of Evaluation: 10:27 - Subjective Subjective: Seen and examined by me this morning in the ICU. Sitting on the chair,c/o cough. Has mild SOB and congested,no fever,denies pain,no diarrhea,no nausea Objective - Vital Signs/Intake and Output Vital Signs (last 24 hours): Temp Pulse Resp BP Pulse Ox 97.4 F L 90 22 126/54 L 99 05/03/18 08:00 05/03/18 09:23 05/03/18 09:23 05/03/18 09:23 05/03/18 09:23 Intake and Output: 05/03/18 05/03/18 06:59 18:59 Intake Total 200 200 Balance 200 200 - Medications Medications: Current Medications Acetaminophen (Tylenol 325mg Tab) 650 mg PO Q6 PRN PRN Reason: pain+fever Amiodarone HCl (Cordarone) 200 mg PO Q12H [facility] Last Admin: 05/03/18 09:50 Dose: 200 mg Apixaban (Eliquis) 2.5 mg PO BID [facility] Last Admin: 05/03/18 09:50 Dose: 2.5 mg Calcium Acetate (Phoslo) 1,334 mg PO TID [facility] Last Admin: 05/03/18 09:50 Dose: 1,334 mg Epoetin Eddie (Procrit) 10,000 unit IV MWF [facility] Famotidine (Pepcid) 20 mg PO DAILY [facility] Last Admin: 05/03/18 09:50 Dose: 20 mg Glipizide (Glucotrol) 10 mg PO ACBD [facility] Last Admin: 05/03/18 07:56 Dose: 10 mg Vancomycin HCl 1 gm/ Sodium (Chloride) 250 mls @ 166.7 mls/hr IVPB ONCE ONE; Protocol Stop: 05/03/18 11:48 Meropenem 500 mg/ Sodium (Chloride) 100 mls @ 100 mls/hr IVPB Q12H [facility]; Protocol Insulin Human Regular (Novolin R) 0 unit SC ACHS [facility]; Protocol Last Admin: 05/03/18 07:56 Dose: 10 u Ipratropium [place] (Atrovent) 0.5 mg IH RQ6 PRN PRN Reason: Shortness of Breath Levothyroxine Sodium (Synthroid) 75 mcg PO DAILY@0630 [facility] Last Admin: 05/03/18 05:39 Dose: 75 mcg Methylprednisolone (Solu-Medrol) 40 mg IVP DAILY [facility] Last Admin: 05/03/18 09:50 Dose: 40 mg Promethazine HCl/Dextromethorphan (Phenergan Dm Syrup) 10 ml PO Q6 PRN PRN Reason: Cough Last Admin: 05/03/18 05:39 Dose: 10 ml Tiotropium [place] (Spiriva) 18 mcg INH RQ24 [facility] - Labs Labs: 05/03/18 06:24 05/03/18 06:21 PT 13.8 SECONDS (9.7-12.2) H 05/01/18 19:00 INR 1.3 05/01/18 19:00 APTT 103 SECONDS (21-34) H* D 05/02/18 06:09 - Constitutional Appears: Non-toxic - Head Exam Head Exam: NORMAL INSPECTION - Eye Exam Eye Exam: Normal appearance - ENT Exam ENT Exam: Mucous Membranes Moist - Neck Exam Neck Exam: Full ROM - Respiratory Exam Respiratory Exam: Rhonchi, Wheezes - Cardiovascular Exam Cardiovascular Exam: REGULAR RHYTHM - GI/Abdominal Exam GI & Abdominal Exam: Soft, Normal Bowel Sounds - Extremities Exam Extremities Exam: Full ROM, Normal Inspection - Back Exam Back Exam: NORMAL INSPECTION - Neurological Exam Neurological Exam: Awake, Oriented x3 - Psychiatric Exam Psychiatric exam: Normal Mood - Skin Skin Exam: Dry Assessment and Plan - Assessment and Plan (Free Text) Plan: 83 y/o female with PMHx of COPD, CHF, ESRD on HD MWF, DM, Afib, anemia, MM, and hypothyroidism presents to the ED with SOB x 3 days. SOB occurs both on exertion and at rest. Patient was sent to the ED from Dr Martinez's office because she did not look well. she was brought in for respiratory tract infection. In the ER before she was admitted she went into SVT followed by afib with RVR. She was given adenosine which broke her tachycardia to sinus then went back to afib with RVR . She was hypotensive and afib with rate of 180ies. Amiodarone bolus given and brought to ICU started on amiodarone drip. Patient was not responding she was tachy with hypotension needed shock to cardiovert. Patient has sepsis. Increasing wbc with bands noted today.Has more congestion. CT chest done .spoke to Dr Martinez who will see her also. patient is going to have dialysis. 1.Afib with RVR In sinus rhythm after cardioversion Off heparin drip,on Eliquis. platelets improved,follow HIT panel continue Amiodarone oral as per supervisor shuttle preparation QT interval improving TSH low on synthroid dose reduced 2. PNA/sepsis Increased WBC with high bandemia negative blood cultures.lactate high /coming down follow sputum cultures spoke to Dr boss started on Merrem ,s/p vanco after dialysis started on Micafungin 3.Thrombocytopenia-resolved follow HIT panel 4.COPD -solumedrol,Atrovent inh,avoid proventil -incentive spirometer 4.ESRD Dr Bill on board -on HD MWF -BUN/Cr on admission 05/06 -avoid fluids 5.DM2 and hyperglycemia Likely due to steroid started on lantus home glipizide 6.Hx of hypothyroidism -admitting TSH < 0.02 she was on levothyroxine 150mcg we will start back on 75mcg Free 4 and T3 noted we will request endocrine consult patient is on Amiodarone s/p tachy 7.ASCVD continue with home crestor 5 mg DVT ppx: Eliquis GI ppx: pepcid 20 mg PO Diet: Renal
[2018-05-03] MEDS ORDERED: Vancomycin 1 gm/NS 200 ml 1 GM/200 ML BAG IVPB ONE (11:00)
--- NOTE | 2018-05-03 11:16 | CP.PCM.PN ---
Subjective - Date & Time of Evaluation Date of Evaluation: 05/03/18 Time of Evaluation: 11:11 - Subjective Subjective: Pt has a cough, upright in the chair, has remained in nsr Objective - Vital Signs/Intake and Output Vital Signs (last 24 hours): Temp Pulse Resp BP Pulse Ox 97.4 F L 90 22 126/54 L 99 05/03/18 08:00 05/03/18 09:23 05/03/18 09:23 05/03/18 09:23 05/03/18 09:23 Intake and Output: 05/03/18 05/03/18 06:59 18:59 Intake Total 200 300 Balance 200 300 - Medications Medications: Current Medications Acetaminophen (Tylenol 325mg Tab) 650 mg PO Q6 PRN PRN Reason: pain+fever Amiodarone HCl (Cordarone) 200 mg PO Q12H [facility] Last Admin: 05/03/18 09:50 Dose: 200 mg Apixaban (Eliquis) 2.5 mg PO BID [facility] Last Admin: 05/03/18 09:50 Dose: 2.5 mg Calcium Acetate (Phoslo) 1,334 mg PO TID [facility] Last Admin: 05/03/18 09:50 Dose: 1,334 mg Epoetin Eddie (Procrit) 10,000 unit IV MWF [facility] Famotidine (Pepcid) 20 mg PO DAILY [facility] Last Admin: 05/03/18 09:50 Dose: 20 mg Glipizide (Glucotrol) 10 mg PO ACBD [facility] Last Admin: 05/03/18 07:56 Dose: 10 mg Vancomycin/Sodium Chloride (Vancomycin 1 Gm/Ns 200 Ml) 1 gm in 200 mls @ 133.333 mls/hr IVPB ONCE ONE; Protocol Stop: 05/03/18 12:29 Meropenem 500 mg/ Sodium (Chloride) 100 mls @ 100 mls/hr IVPB Q12H [facility]; Protocol Insulin Human Regular (Novolin R) 0 unit SC ACHS [facility]; Protocol Last Admin: 05/03/18 07:56 Dose: 10 u Ipratropium [place] (Atrovent) 0.5 mg IH RQ6 PRN PRN Reason: Shortness of Breath Levothyroxine Sodium (Synthroid) 75 mcg PO DAILY@0630 [facility] Last Admin: 05/03/18 05:39 Dose: 75 mcg Methylprednisolone (Solu-Medrol) 40 mg IVP DAILY [facility] Last Admin: 05/03/18 09:50 Dose: 40 mg Promethazine HCl/Dextromethorphan (Phenergan Dm Syrup) 10 ml PO Q6 PRN PRN Reason: Cough Last Admin: 05/03/18 05:39 Dose: 10 ml Tiotropium [place] (Spiriva) 18 mcg INH RQ24 [facility] - Labs Labs: 05/03/18 06:24 05/03/18 06:21 PT 13.8 SECONDS (9.7-12.2) H 05/01/18 19:00 INR 1.3 05/01/18 19:00 APTT 103 SECONDS (21-34) H* D 05/02/18 06:09 - Constitutional Appears: Well - Head Exam Head Exam: ATRAUMATIC - Eye Exam Eye Exam: EOMI - Neck Exam Neck Exam: Full ROM - Respiratory Exam Respiratory Exam: Rales, Wheezes - Cardiovascular Exam Cardiovascular Exam: REGULAR RHYTHM - GI/Abdominal Exam GI & Abdominal Exam: Normal Bowel Sounds - Exam External exam: NORMAL EXTERNAL EXAM - Back Exam Back Exam: NORMAL INSPECTION - Neurological Exam Neurological Exam: Alert, Awake, CN II-XII Intact, Oriented x3 Assessment and Plan - Assessment and Plan (Free Text) Assessment: 1. CXR shows increased markings, and pt is likely congested. For dialysis today. Lv EF is normal, likely diastolic chf: pt got several fluid challenges during CV. 2. pt remains in nsr with amiodarone. eliquis. QTC is only mildly prolonged now, on PO, off IV amio 3. low tsh, but normal T4.
[2018-05-03] MEDS: Ipratropium 0.02% Inhal Soln (0.5 mg/2.5 ml) UD IH PRN (11:49)
[2018-05-03] MEDS: Meropenem 500 MG in Sodium Chloride 0.9% 100 ML IVPB SCH (12:02)
[2018-05-03] MEDS ORDERED: (Novolog) Insulin Aspart, Recombinant 100 u/ml 10 ml vial SC ONE (12:19)
[2018-05-03] MEDS: Insulin Detemir 100 units/ml Vial (Levemir) SC SCH (13:13)
--- NOTE | 2018-05-03 13:18 | CT ---
Date of service: 05/03/2018 PROCEDURE: CT Chest without contrast HISTORY: Rule out pneumonia COMPARISON: Comparison made with chest radiograph 05/03/2018 at 8:17 a.m.. Comparison also made with prior CT chest dated 04/14/2018. TECHNIQUE: Contiguous axial images were obtained through the chest without intravenous contrast enhancement. Sagittal and coronal reconstructions were performed. Radiation dose: Total exam DLP = 522.76 mGy-cm. This CT exam was performed using one or more of the following dose reduction techniques: Automated exposure control, adjustment of the mA and/or kV according to patient size, and/or use of iterative reconstruction technique. FINDINGS: LUNGS: There are scattered localized areas of ground-glass opacity seen throughout the lower and to a lesser degree upper lobes. Additionally, scattered small translucent nodular opacities are also present in the upper lobes. Linear scarring both lung bases including the lingular and middle lobe regions. Minor linear scarring seen in the right lung apex. Small approximately 2.4 mm nodule left posterior upper lobe unchanged. MEDIASTINUM: Unremarkable thoracic aorta. No aneurysm. Normal sized heart. Main pulmonary artery unremarkable. No vascular congestion. No lymphadenopathy. Heart is mildly enlarged. No significant pericardial effusion. Dense calcification the mitral valve. At ascending thoracic aorta measures approximately 3.5 cm and descending thoracic aorta measures approximately 2.4 cm. Mild aortic atherosclerotic calcification. Pulmonary trunk measures approximately 2.4 cm. The Multiple small nonspecific mediastinal lymph nodes present. Evaluation for hilar adenopathy is somewhat limited due to the lack of circulating intravenous contrast material. No large hilar mass is identified. Trachea midline and patent with no large central endoluminal lesions. Small hiatal hernia. PLEURA: No pleural fluid. No pneumothorax. BONES: Redemonstrated are old healed left posterolateral rib fracture deformities. Chronic anterior wedge deformities of several thoracic segments notably involving a at least 2 lower thoracic and 1 upper lumbar segments.. Slight posterior subluxation of L1 over L2... The bone marrow of the vertebral bodies is somewhat mottled in appearance. Findings could be secondary to diffuse osteopenia. Multilevel degenerative spondylosis of the thoracic and upper lumbar spine. UPPER ABDOMEN: Gallbladder appears contracted and contains multiple intraluminal calculi.. No significant gallbladder wall thickening or large pericholecystic fluid collections. OTHER FINDINGS: None. IMPRESSION: There are scattered localized areas of ground-glass opacity seen throughout the lower and to a lesser degree upper lobes. Additionally, scattered small translucent nodular opacities are also present in the upper lobes. Linear scarring both lung bases including the lingular and middle lobe regions. Minor linear scarring seen in the right lung apex. Small approximately 2.4 mm nodule left posterior upper lobe unchanged. . Cholelithiasis.
--- NOTE | 2018-05-03 14:19 | CP.PCM.PN ---
Subjective - Date & Time of Evaluation Date of Evaluation: 05/03/18 Time of Evaluation: 14:19 Objective - Vital Signs/Intake and Output Vital Signs (last 24 hours): Temp Pulse Resp BP Pulse Ox 97.4 F L 98 H 20 148/84 95 05/03/18 08:00 05/03/18 11:31 05/03/18 11:31 05/03/18 11:31 05/03/18 11:31 Intake and Output: 05/03/18 05/03/18 06:59 18:59 Intake Total 200 300 Balance 200 300 - Medications Medications: Current Medications Acetaminophen (Tylenol 325mg Tab) 650 mg PO Q6 PRN PRN Reason: pain+fever Amiodarone HCl (Cordarone) 200 mg PO Q12H [facility] Last Admin: 05/03/18 09:50 Dose: 200 mg Apixaban (Eliquis) 2.5 mg PO BID [facility] Last Admin: 05/03/18 09:50 Dose: 2.5 mg Calcium Acetate (Phoslo) 1,334 mg PO TID [facility] Last Admin: 05/03/18 13:14 Dose: 1,334 mg Epoetin Eddie (Procrit) 10,000 unit IV MWF [facility] Famotidine (Pepcid) 20 mg PO DAILY [facility] Last Admin: 05/03/18 09:50 Dose: 20 mg Glipizide (Glucotrol) 10 mg PO ACBD [facility] Last Admin: 05/03/18 07:56 Dose: 10 mg Meropenem 500 mg/ Sodium (Chloride) 100 mls @ 100 mls/hr IVPB Q12H [facility]; Protocol Last Admin: 05/03/18 12:02 Dose: 100 mls/hr Insulin Aspart (Novolog) 0 unit SC ACHS [facility]; Protocol Insulin Detemir (Levemir) 12 unit SC Q12H [facility] Last Admin: 05/03/18 13:13 Dose: 12 units Ipratropium [place] (Atrovent) 0.5 mg IH RQ6 PRN PRN Reason: Shortness of Breath Last Admin: 05/03/18 11:49 Dose: 0.5 mg Levothyroxine Sodium (Synthroid) 75 mcg PO DAILY@0630 [facility] Last Admin: 05/03/18 05:39 Dose: 75 mcg Methylprednisolone (Solu-Medrol) 40 mg IVP DAILY [facility] Last Admin: 05/03/18 09:50 Dose: 40 mg Promethazine HCl/Dextromethorphan (Phenergan Dm Syrup) 10 ml PO Q6 PRN PRN Reason: Cough Last Admin: 05/03/18 12:08 Dose: 10 ml Tiotropium [place] (Spiriva) 18 mcg INH RQ24 [facility] - Labs Labs: 05/03/18 06:24 05/03/18 06:21 PT 13.8 SECONDS (9.7-12.2) H 05/01/18 19:00 INR 1.3 05/01/18 19:00 APTT 103 SECONDS (21-34) H* D 05/02/18 06:09
--- NOTE | 2018-05-03 14:35 | RAD ---
Date of service: 05/03/2018 HISTORY: Elevated wbc COMPARISON: No prior. FINDINGS: No change left IJ MediPort tip in the SVC LUNGS: Poor inspiration with low lung volumes, crowded bronchovascular markings and bibasilar atelectasis. The interstitial markings are slightly increased coarsened possibly due to low lung volumes however mild sequela of reactive/inflammatory airway disease, viral illness or mild chronic compensated pulmonary venous congestion to be considered. Note that the dense mitral valve calcification further obscures the lung parenchyma left medial lower lung base... PLEURA: No significant pleural effusion identified, no pneumothorax apparent. CARDIOVASCULAR: Mild aortic atherosclerotic calcification present. Mild cardiomegaly.. No pulmonary vascular congestion. OSSEOUS STRUCTURES: Again noted left posterolateral rib fracture deformity. VISUALIZED UPPER ABDOMEN: Normal. OTHER FINDINGS: None. IMPRESSION: Poor inspiration with low lung volumes, crowded bronchovascular markings and bibasilar atelectasis. The interstitial markings are slightly increased coarsened possibly due to low lung volumes however mild sequela of reactive/inflammatory airway disease, viral illness or mild chronic compensated pulmonary venous congestion to be considered. Note that the dense mitral valve calcification further obscures the lung parenchyma left medial lower lung base.
--- NOTE | 2018-05-03 14:38 | CP.CCUPN ---
CCU Subjective - Physician Review Subjective (Free Text): PGY-1 ICU progress note for Dr Stevens Patient is seen and examined at bedside. Patient is complaining of worsening coughing and some shortness of breath. Patient denies chest pain, palpitations, headaches, abdominal pain, diarrhea or constipation, n/v. Patient is scheduled to get HD session in hospital today. Critical Care Time Spent (in minutes): 35 CCU Objective - Vital Signs / Intake & Output Vital Signs (Last 4 hours): Vital Signs Pulse Pulse Resp BP BP Pulse Ox 05/03/18 14:30 119/53 L 05/03/18 14:15 97 H 30 H 134/36 L 98 05/03/18 14:10 97 H 30 H 127/37 L 05/03/18 11:31 98 H 20 148/84 95 Intake and Output (Last 8hrs): Intake & Output 05/02/18 05/03/18 05/03/18 22:59 06:59 14:59 Intake Total 325 50 300 Balance 325 50 300 Weight 143 lb Intake: Intake, IV Amount 100 100 Left Distal Port Port-A- 100 Cath Left Port-A-Cath 100 Oral 225 50 200 Other: # Bowel Movements 1 - Physical Exam Head: Positive for: Atraumatic, Normocephalic Pupils: Positive for: PERRL Extroacular Muscles: Positive for: EOMI Mouth: Positive for: Moist Mucous Membranes Nose (Internal): Positive for: Normal Inspection Neck: Positive for: Normal Range of Motion Respiratory/Chest: Positive for: Decreased Breath Sounds, Rales (b/l ). Negative for: Respiratory Distress, Accessory Muscle Use Cardiovascular: Positive for: Regular Rate and Rhythm, Normal S1, S2 Abdomen: Positive for: Normal Bowel Sounds Back: Positive for: Normal Inspection Upper Extremity: Positive for: Normal Inspection. Negative for: Edema Lower Extremity: Positive for: Normal Inspection. Negative for: Edema Neurological: Positive for: CN II-XII Intact, Speech Normal Skin: Positive for: Warm, Normal Color, Other (skin hematoma in chest area x 2 ) Psychiatric: Positive for: Alert, Oriented x 3, Anxious - Medications Active Medications: Active Medications Generic Name Dose Route Start Last Admin Trade Name Freq PRN Reason Stop Dose Admin Acetaminophen 650 mg 05/01/18 18:00 Tylenol 325mg Tab PO Q6 PRN pain+fever Amiodarone HCl 200 mg 05/02/18 09:54 05/03/18 09:50 Cordarone PO 200 mg Q12H MARIBETH Administration Apixaban 2.5 mg 05/02/18 11:30 05/03/18 09:50 Eliquis PO 2.5 mg BID MARIBETH Administration Calcium Acetate 1,334 mg 05/03/18 08:26 05/03/18 13:14 Phoslo PO 1,334 mg TID MARIBETH Administration Epoetin Eddie 10,000 unit 05/03/18 09:00 Procrit IV MWF [facility] Famotidine 20 mg 05/01/18 16:30 05/03/18 09:50 Pepcid PO 20 mg DAILY MARIBETH Administration Glipizide 10 mg 05/03/18 07:30 05/03/18 07:56 Glucotrol PO 10 mg ACBD [facility] Administration Meropenem 500 mg/ Sodium 100 mls @ 100 mls/hr 05/03/18 13:00 05/03/18 12:02 Chloride IVPB 100 mls/hr Q12H MARIBETH Administration Protocol Insulin Aspart 0 unit 05/03/18 16:30 Novolog SC ACHS [facility] Protocol Insulin Detemir 12 unit 05/03/18 12:21 05/03/18 13:13 Levemir SC 12 units Q12H [facility] Administration Ipratropium [place] 0.5 mg 05/03/18 09:37 05/03/18 11:49 Atrovent IH 0.5 mg RQ6 PRN Administration Shortness of Breath Levothyroxine Sodium 75 mcg 05/03/18 06:30 05/03/18 05:39 Synthroid PO 75 mcg DAILY@0630 [facility] Administration Methylprednisolone 40 mg 05/02/18 10:00 05/03/18 09:50 Solu-Medrol IVP 40 mg DAILY [facility] Administration Promethazine HCl/Dextromethorphan 10 ml 05/02/18 00:33 05/03/18 12:08 Phenergan Dm Syrup PO 10 ml Q6 PRN Administration Cough Tiotropium [place] 18 mcg 05/03/18 10:00 Spiriva INH RQ24 [facility] - Patient Studies Lab Studies: Microbiology Studies 05/01/18 13:46 Blood Culture - Preliminary Blood NO GROWTH AFTER 48 HOURS 05/01/18 12:47 Blood Culture - Preliminary Blood NO GROWTH AFTER 48 HOURS 05/02/18 01:34 MRSA Culture (Admit) - Final Naris MRSA NOT DETECTED Lab Studies 05/03/18 05/03/18 05/03/18 Range/Units 11:33 11:23 07:27 WBC (4.8-10.8) K/uL RBC (3.80-5.20) Mil/uL Hgb (11.0-16.0) g/dL Hct (34.0-47.0) % MCV (81.0-99.0) fL MCH (27.0-31.0) pg MCHC (33.0-37.0) g/dL RDW (11.5-14.5) % Plt Count (130-400) K/uL MPV (7.2-11.7) fL Neut % (Auto) (50.0-75.0) % Lymph % (Auto) (20.0-40.0) % [place] % (Auto) (0.0-10.0) % Eos % (Auto) (0.0-4.0) % Baso % (Auto) (0.0-2.0) % Neut # (Auto) (1.8-7.0) K/uL Lymph # (Auto) (1.0-4.3) K/uL [place] # (Auto) (0.0-0.8) K/uL Eos # (Auto) (0.0-0.7) K/uL Baso # (Auto) (0.0-0.2) K/uL Neutrophils % (Manual) (50-75) % Band Neutrophils % (0-2) % Lymphocytes % (Manual) (20-40) % Reactive Lymphs % (0-0) % Monocytes % (Manual) Toxic Granulation Platelet Estimate (NORMAL) Large Platelets Nic Cells Sodium (132-148) mmol/L Potassium (3.6-5.2) mmol/L Chloride (98-107) mmol/L Carbon Dioxide (22-30) mmol/L Anion Gap (10-20) BUN (7-17) mg/dL Creatinine (0.7-1.2) mg/dL Est GFR ( Amer) Est GFR (Non-Af Amer) POC Glucose (mg/dL) 387 H 365 H (65-110) mg/dL Random Glucose (65-105) mg/dL Lactic Acid (0.7-2.1) mmol/L Calcium (8.6-10.4) mg/dl Phosphorus (2.5-4.5) mg/dL Magnesium (1.6-2.3) mg/dL Total Bilirubin (0.2-1.3) mg/dL AST (14-36) U/L ALT (9-52) U/L Alkaline Phosphatase (38-126) U/L Total Protein (6.3-8.3) g/dL Albumin (3.5-5.0) g/dL Globulin (2.2-3.9) gm/dL Albumin/Globulin Ratio (1.0-2.1) Procalcitonin 1.42 H (0.19-0.49) NG/ML Free T4 (0.78-2.19) ng/dL TSH 3rd Generation (0.46-4.68) mIU/L 05/03/18 05/03/18 05/03/18 Range/Units 06:24 06:21 06:21 WBC 32.7 H D (4.8-10.8) K/uL RBC 3.12 L (3.80-5.20) Mil/uL Hgb 9.7 L (11.0-16.0) g/dL Hct 29.6 L (34.0-47.0) % MCV 95.0 (81.0-99.0) fL MCH 31.1 H (27.0-31.0) pg MCHC 32.7 L (33.0-37.0) g/dL RDW 14.6 H (11.5-14.5) % Plt Count 141 (130-400) K/uL MPV 11.7 (7.2-11.7) fL Neut % (Auto) 95.9 H (50.0-75.0) % Lymph % (Auto) 2.2 L (20.0-40.0) % [place] % (Auto) 1.8 (0.0-10.0) % Eos % (Auto) 0.0 (0.0-4.0) % Baso % (Auto) 0.1 (0.0-2.0) % Neut # (Auto) 31.3 H (1.8-7.0) K/uL Lymph # (Auto) 0.7 L (1.0-4.3) K/uL [place] # (Auto) 0.6 (0.0-0.8) K/uL Eos # (Auto) 0.0 (0.0-0.7) K/uL Baso # (Auto) 0.0 (0.0-0.2) K/uL Neutrophils % (Manual) 79 H (50-75) % Band Neutrophils % 17 H* (0-2) % Lymphocytes % (Manual) 3 L (20-40) % Reactive Lymphs % 1 H (0-0) % Monocytes % (Manual) TEST NOT PERFORMED Toxic Granulation Present Platelet Estimate Normal (NORMAL) Large Platelets Present Nic Cells Slight Sodium (132-148) mmol/L Potassium (3.6-5.2) mmol/L Chloride (98-107) mmol/L Carbon Dioxide (22-30) mmol/L Anion Gap (10-20) BUN (7-17) mg/dL Creatinine (0.7-1.2) mg/dL Est GFR ( Amer) Est GFR (Non-Af Amer) POC Glucose (mg/dL) (65-110) mg/dL Random Glucose (65-105) mg/dL Lactic Acid 2.2 H (0.7-2.1) mmol/L Calcium (8.6-10.4) mg/dl Phosphorus (2.5-4.5) mg/dL Magnesium (1.6-2.3) mg/dL Total Bilirubin (0.2-1.3) mg/dL AST (14-36) U/L ALT (9-52) U/L Alkaline Phosphatase (38-126) U/L Total Protein (6.3-8.3) g/dL Albumin (3.5-5.0) g/dL Globulin (2.2-3.9) gm/dL Albumin/Globulin Ratio (1.0-2.1) Procalcitonin (0.19-0.49) NG/ML Free T4 2.18 (0.78-2.19) ng/dL TSH 3rd Generation (0.46-4.68) mIU/L 05/03/18 05/02/18 05/02/18 Range/Units 06:21 21:18 20:09 WBC (4.8-10.8) K/uL RBC (3.80-5.20) Mil/uL Hgb (11.0-16.0) g/dL Hct (34.0-47.0) % MCV (81.0-99.0) fL MCH (27.0-31.0) pg MCHC (33.0-37.0) g/dL RDW (11.5-14.5) % Plt Count (130-400) K/uL MPV (7.2-11.7) fL Neut % (Auto) (50.0-75.0) % Lymph % (Auto) (20.0-40.0) % [place] % (Auto) (0.0-10.0) % Eos % (Auto) (0.0-4.0) % Baso % (Auto) (0.0-2.0) % Neut # (Auto) (1.8-7.0) K/uL Lymph # (Auto) (1.0-4.3) K/uL [place] # (Auto) (0.0-0.8) K/uL Eos # (Auto) (0.0-0.7) K/uL Baso # (Auto) (0.0-0.2) K/uL Neutrophils % (Manual) (50-75) % Band Neutrophils % (0-2) % Lymphocytes % (Manual) (20-40) % Reactive Lymphs % (0-0) % Monocytes % (Manual) Toxic Granulation Platelet Estimate (NORMAL) Large Platelets Downs Cells Sodium 136 (132-148) mmol/L Potassium 4.1 (3.6-5.2) mmol/L Chloride 94 L (98-107) mmol/L Carbon Dioxide 26 (22-30) mmol/L Anion Gap 19 (10-20) BUN 72 H (7-17) mg/dL Creatinine 4.6 H (0.7-1.2) mg/dL Est GFR ( Amer) 11 Est GFR (Non-Af Amer) 9 POC Glucose (mg/dL) 276 H (65-110) mg/dL Random Glucose 287 H D (65-105) mg/dL Lactic Acid 3.3 H (0.7-2.1) mmol/L Calcium 8.4 L (8.6-10.4) mg/dl Phosphorus 7.7 H (2.5-4.5) mg/dL Magnesium 2.2 (1.6-2.3) mg/dL Total Bilirubin 0.4 (0.2-1.3) mg/dL AST 26 (14-36) U/L ALT 38 (9-52) U/L Alkaline Phosphatase 60 (38-126) U/L Total Protein 5.9 L (6.3-8.3) g/dL Albumin 3.3 L (3.5-5.0) g/dL Globulin 2.6 (2.2-3.9) gm/dL Albumin/Globulin Ratio 1.3 (1.0-2.1) Procalcitonin (0.19-0.49) NG/ML Free T4 (0.78-2.19) ng/dL TSH 3rd Generation < 0.02 L (0.46-4.68) mIU/L 05/02/18 Range/Units 16:22 WBC (4.8-10.8) K/uL RBC (3.80-5.20) Mil/uL Hgb (11.0-16.0) g/dL Hct (34.0-47.0) % MCV (81.0-99.0) fL MCH (27.0-31.0) pg MCHC (33.0-37.0) g/dL RDW (11.5-14.5) % Plt Count (130-400) K/uL MPV (7.2-11.7) fL Neut % (Auto) (50.0-75.0) % Lymph % (Auto) (20.0-40.0) % [place] % (Auto) (0.0-10.0) % Eos % (Auto) (0.0-4.0) % Baso % (Auto) (0.0-2.0) % Neut # (Auto) (1.8-7.0) K/uL Lymph # (Auto) (1.0-4.3) K/uL [place] # (Auto) (0.0-0.8) K/uL Eos # (Auto) (0.0-0.7) K/uL Baso # (Auto) (0.0-0.2) K/uL Neutrophils % (Manual) (50-75) % Band Neutrophils % (0-2) % Lymphocytes % (Manual) (20-40) % Reactive Lymphs % (0-0) % Monocytes % (Manual) Toxic Granulation Platelet Estimate (NORMAL) Large Platelets Nic Cells Sodium (132-148) mmol/L Potassium (3.6-5.2) mmol/L Chloride (98-107) mmol/L Carbon Dioxide (22-30) mmol/L Anion Gap (10-20) BUN (7-17) mg/dL Creatinine (0.7-1.2) mg/dL Est GFR ( Amer) Est GFR (Non-Af Amer) POC Glucose (mg/dL) 272 H (65-110) mg/dL Random Glucose (65-105) mg/dL Lactic Acid (0.7-2.1) mmol/L Calcium (8.6-10.4) mg/dl Phosphorus (2.5-4.5) mg/dL Magnesium (1.6-2.3) mg/dL Total Bilirubin (0.2-1.3) mg/dL AST (14-36) U/L ALT (9-52) U/L Alkaline Phosphatase (38-126) U/L Total Protein (6.3-8.3) g/dL Albumin (3.5-5.0) g/dL Globulin (2.2-3.9) gm/dL Albumin/Globulin Ratio (1.0-2.1) Procalcitonin (0.19-0.49) NG/ML Free T4 (0.78-2.19) ng/dL TSH 3rd Generation (0.46-4.68) mIU/L Laboratory Results - last 24 hr 05/02/18 05/02/18 05/02/18 16:22 20:09 21:18 WBC RBC Hgb Hct MCV MCH MCHC RDW Plt Count MPV Neut % (Auto) Lymph % (Auto) [place] % (Auto) Eos % (Auto) Baso % (Auto) Neut # (Auto) Lymph # (Auto) [place] # (Auto) Eos # (Auto) Baso # (Auto) Neutrophils % (Manual) Band Neutrophils % Lymphocytes % (Manual) Reactive Lymphs % Monocytes % (Manual) Toxic Granulation Platelet Estimate Large Platelets Downs Cells Sodium Potassium Chloride Carbon Dioxide Anion Gap BUN Creatinine Est GFR ( Amer) Est GFR (Non-Af Amer) POC Glucose (mg/dL) 272 H 276 H Random Glucose Lactic Acid 3.3 H Calcium Phosphorus Magnesium Total Bilirubin AST ALT Alkaline Phosphatase Total Protein Albumin Globulin Albumin/Globulin Ratio Procalcitonin Free T4 TSH 3rd Generation 05/03/18 05/03/18 05/03/18 06:21 06:21 06:21 WBC RBC Hgb Hct MCV MCH MCHC RDW Plt Count MPV Neut % (Auto) Lymph % (Auto) [place] % (Auto) Eos % (Auto) Baso % (Auto) Neut # (Auto) Lymph # (Auto) [place] # (Auto) Eos # (Auto) Baso # (Auto) Neutrophils % (Manual) Band Neutrophils % Lymphocytes % (Manual) Reactive Lymphs % Monocytes % (Manual) Toxic Granulation Platelet Estimate Large Platelets Downs Cells Sodium 136 Potassium 4.1 Chloride 94 L Carbon Dioxide 26 Anion Gap 19 BUN 72 H Creatinine 4.6 H Est GFR ( Amer) 11 Est GFR (Non-Af Amer) 9 POC Glucose (mg/dL) Random Glucose 287 H D Lactic Acid 2.2 H Calcium 8.4 L Phosphorus 7.7 H Magnesium 2.2 Total Bilirubin 0.4 AST 26 ALT 38 Alkaline Phosphatase 60 Total Protein 5.9 L Albumin 3.3 L Globulin 2.6 Albumin/Globulin Ratio 1.3 Procalcitonin Free T4 2.18 TSH 3rd Generation < 0.02 L 05/03/18 05/03/18 05/03/18 06:24 07:27 11:23 WBC 32.7 H D RBC 3.12 L Hgb 9.7 L Hct 29.6 L MCV 95.0 MCH 31.1 H MCHC 32.7 L RDW 14.6 H Plt Count 141 MPV 11.7 Neut % (Auto) 95.9 H Lymph % (Auto) 2.2 L [place] % (Auto) 1.8 Eos % (Auto) 0.0 Baso % (Auto) 0.1 Neut # (Auto) 31.3 H Lymph # (Auto) 0.7 L [place] # (Auto) 0.6 Eos # (Auto) 0.0 Baso # (Auto) 0.0 Neutrophils % (Manual) 79 H Band Neutrophils % 17 H* Lymphocytes % (Manual) 3 L Reactive Lymphs % 1 H Monocytes % (Manual) TEST NOT PERFORMED Toxic Granulation Present Platelet Estimate Normal Large Platelets Present Downs Cells Slight Sodium Potassium Chloride Carbon Dioxide Anion Gap BUN Creatinine Est GFR ( Amer) Est GFR (Non-Af Amer) POC Glucose (mg/dL) 365 H Random Glucose Lactic Acid Calcium Phosphorus Magnesium Total Bilirubin AST ALT Alkaline Phosphatase Total Protein Albumin Globulin Albumin/Globulin Ratio Procalcitonin 1.42 H Free T4 TSH 3rd Generation 05/03/18 11:33 WBC RBC Hgb Hct MCV MCH MCHC RDW Plt Count MPV Neut % (Auto) Lymph % (Auto) [place] % (Auto) Eos % (Auto) Baso % (Auto) Neut # (Auto) Lymph # (Auto) [place] # (Auto) Eos # (Auto) Baso # (Auto) Neutrophils % (Manual) Band Neutrophils % Lymphocytes % (Manual) Reactive Lymphs % Monocytes % (Manual) Toxic Granulation Platelet Estimate Large Platelets Nic Cells Sodium Potassium Chloride Carbon Dioxide Anion Gap BUN Creatinine Est GFR ( Amer) Est GFR (Non-Af Amer) POC Glucose (mg/dL) 387 H Random Glucose Lactic Acid Calcium Phosphorus Magnesium Total Bilirubin AST ALT Alkaline Phosphatase Total Protein Albumin Globulin Albumin/Globulin Ratio Procalcitonin Free T4 TSH 3rd Generation Radiology Impressions: Radiology Impressions Chest X-Ray 05/03/18 08:11 IMPRESSION: Poor inspiration with low lung volumes, crowded bronchovascular markings and bibasilar atelectasis. The interstitial markings are slightly increased coarsened possibly due to low lung volumes however mild sequela of reactive/inflammatory airway disease, viral illness or mild chronic compensated pulmonary venous congestion to be considered. Note that the dense mitral valve calcification further obscures the lung parenchyma left medial lower lung base. Chest CT 05/03/18 10:35 IMPRESSION: There are scattered localized areas of ground-glass opacity seen throughout the lower and to a lesser degree upper lobes. Additionally, scattered small translucent nodular opacities are also present in the upper lobes. Linear scarring both lung bases including the lingular and middle lobe regions. Minor linear scarring seen in the right lung apex. Small approximately 2.4 mm nodule left posterior upper lobe unchanged. . Cholelithiasis. EKG/Cardiology Studies: Cardiology / EKG Studies 05/03/18 05:00 ELECTROCARDIOGRAM Routine Comment: Mode Of Transportation: Reason For Exam: s/p cardioversion,prolonged qt PERFORMING PHYSICIAN/PROVIDER:: Kumaresan,Arulnangai Fingerstick Blood Sugar Results: 387 Review of Systems - Review of Systems All systems: reviewed and no additional remarkable complaints except Review of Systems: as per subjective Critical Care Progress Note - Nutrition Nutrition: Nutrition Category Date Time Status Renal Diet [DIET] Diets 05/01/18 Dinner Active Assessment/Plan - Assessment and Plan (Free Text) Plan: 83 y/o female with PMHx of COPD, CHF, ESRD on HD MWF, DM, Afib, anemia, MM, and hypothyroidism presents to the ED with SOB x 3 days transferred to ICU on 05/01 for management of new onset SVT, cardioverted by cardiology with amiodarone drip, now on oral amiodarone, discontinued heparin drip and placed on eliquis, CXray and CT show no signs of PNA, with high WBC today, possibly due to steroid use. Neuro AAOx3 no acute problems Cardio remains in NSR cardioconversion by cardiology- 75, 200 Joules of synchronized shock - converted to NS amiodarone 200mg PO Q12H Heparin drip - D/c follow up Heparin ab panel Eliquis 2.5 bid Cardio - Dr Gold Pulm Chest Xray - no active disease CT chest - no signs of PNA, possible COPD Atrovent PRN Spiriva Qdaily Solumedrol 40mg IVP daily Pulm - Dr Kessler on O2 via [place] GI Renal diet pepcid Renal ESRD HD MWF Renal - Dr Bill Endo -low TSH - patient on synthroid at home - Dr Mays - Endo consult - elevated glucose today - glucotrol 10mg PO ACBC - ISS ACHS - Levemir 12 Units SC Q12H - one dose of regular 10 units Heme/Onc - Dr Martinez - will follow patient as outpatient ID Meropenem f/u Bcx and UCx - no growth elevated wBC - f/u procal and CBC CT chest - no signs of PNA - follow up official report PPX eliquis tylenol PRN Pepcid 20mg PO Daily Plan discussed with Dr Stevens Dispo: patient downgraded to tele floor today. Shaquille Wilder, PGY-1 - Date & Time Date: 05/03/18 Time: 10:00
--- NOTE | 2018-05-03 15:39 | CARD ---
APPROVED REPORT Date of service: 05/01/2018 EKG Measurement Heart [id number] <Conclusion> Normal sinus rhythm Anterior infarct, age undetermined Abnormal ECG
[2018-05-03] MEDS: EPOETIN ALFA 10,000 UNIT/ML ML IV SCH (15:41)
[2018-05-03] MEDS: (Novolog) Insulin Aspart, Recombinant 100 u/ml 10 ml vial SC SCH ×2 (16:28→22:14)
[2018-05-03] MEDS: (Novolog Mix 70/30) Insulin Aspart/Insulin Aspar 100 units/ml SC SCH (17:56)
--- NOTE | 2018-05-03 18:02 | CP.PCM.CON ---
History of Present Illness - History of Present Illness History of Present Illness: 83 y/o female, with history of COPD, CHF, ESRD on HD , A-fib, and anemia, was admitted with SOB associated with chills and a productive cough Cough and SOB ppersist despite several days of antibiotics Patient is up to date with flu vaccination and was recently admitted for COPD exacerbation on 04/14/18 and discharged on 04/19/18 on avelox. According to , patient is not on steroids. ID consulted for antibiotic management given possible HCAP - Medical History PMH: Anemia, Myeloma Arthritis, Atrial Fibrillation, Cardia Arrhythmia, CHF, HTN, Hypercholesterolemia, Hyperlipidemia, Hypothyroidism, End Stage Renal Disease, Chronic Kidney Disease Surgical History: Endoscopy - [facility] Procedures (04/18/18) EXCISION OF STOMACH, ENDO, DIAGN (06/28/16) EXTRACTION OF ILIAC BONE MARROW, PERC APPROACH, DIAGN (12/25/16) FLUOROSCOPY OF SUP VENA CAVA USING L OSM CONTRAST, GUIDANCE (12/25/16) INSERT VAD RESERVOIR IN CHEST SUBCU/FASCIA, OPEN (12/25/16) INSERTION OF INFUSION DEV INTO SUP VENA CAVA, PERC APPROACH (12/25/16) INSPECTION OF LOWER INTESTINAL TRACT, ENDO (06/28/16) INSPECTION OF UPPER INTESTINAL TRACT, ENDO (09/25/16) INTRODUCE OTH ANTINEOPLASTIC IN CENTRAL VEIN, PERC (12/25/16) PERFORMANCE OF URINARY FILTRATION, MULTIPLE (12/25/16) [employer] OF CARDIAC RHYTHM, SINGLE (12/25/16) TRANSFUSE NONAUT RED BLOOD CELLS IN PERIPH VEIN, PERC (12/25/16) Review of Systems - Constitutional Constitutional: As Per HPI, Anorexia, Malaise - EENT Eyes: absent: As Per HPI, Blind Spots, Blurred Vision, Change in Vision, Decreased Night Vision, Diplopia, Discharge, Dry Eye, Exophthalmos, Floaters, Irritation, Itchy Eyes, Loss of Peripheral Vision, Pain, Photophobia, Requires Corrective Lenses, Sees Flashes, Spots in Vision, Tunnel Vision, Other Visual Disturbances, Loss of Vision, Other Ears: absent: As Per HPI, Decreased Hearing, Ear Discharge, Ear Pain, Tinnitus, Abnormal Hearing, Disequilibrium, Dizziness, Other Nose/Mouth/Throat: absent: As Per HPI, Epistaxis, Nasal Congestion, Nasal Discharge, Nasal Obstruction, Nasal Trauma, Nose Pain, Post Nasal Drip, Sinus Pain, Sinus Pressure, Bleeding Gums, Change in Voice, Dental Pain, Dry Mouth, Dysphagia, Halitosis, Hoarsness, Lip Swelling, Mouth Lesions, Mouth Pain, Odynophagia, Sore Throat, Throat Swelling, Tongue Swelling, Facial Pain, Neck Pain, Neck Mass, Other - Breasts Breasts: absent: As Per HPI, Change in Shape, Mass, Pain, Nipple Discharge, Nipple Inversion, Skin Changes, Swelling, Other - Cardiovascular Cardiovascular: As Per HPI - Respiratory Respiratory: As Per HPI, Cough, Dyspnea. absent: Hemoptysis - Gastrointestinal Gastrointestinal: absent: As Per HPI, Abdominal Pain, Belching, Bloating, Change in Bowel Habits, Change in Stool Character, Coffee Ground Emesis, Constipation, Cramping, Diarrhea, Dyspepsia, Dysphagia, Early Satiety, Excessive Flatus, Fecal Incontinence, Heartburn, Hematemesis, Hematochezia, Loose Stools, Melena, Nausea, Odynophagia, Temesmus, Vomiting, Other - Genitourinary Genitourinary: absent: As Per HPI, Change in Urinary Stream, Difficulty Urinating, Dysuria, Flank Pain, Hematuria, Pyuria, Nocturia, Urinary Incontinence, Urinary Frequency, Urinary Hesitance, Urinary Urgency, Voiding Freq/Small Amts, Freq UTI, Hx Renal/Bladder Calculi, Hx /Renal Surgery, Bladder Distension, Other - Reproductive: Female Reproductive:Female: absent: As Per HPI, Amenorrhea, Amenorrhea/ Control, Currently Menstual, Cycle <21 Days, Cycle >35 Days, Cycle Variable, Menses 1-7 Days, Menses >/= 8 Days, Menses Variable, Cycle > 4 Weeks Between, No Menses for 6 Months, Heavy Menses, Light Menses, Normal Menses, Spotting Between Cycles, S/P Hysterectomy, Menopausal, Post Menopausal, Premenarche, Abnormal Vaginal Bleeding, Dysmenorrhea, Dyspareunia, Genital Lesions, Genital Pruritis, Pelvic Pain, Prolapse Symptoms, Sexual Dysfunction, Vaginal Discharge, Vaginal Dryness, Vaginal Odor, Vaginal Pruritis, Other - Menstruation Menstruation: absent: As Per HPI, Amenorrhea, Amenorrhea/ Control, Currently Menstual, Cycle <21 Days, Cycle >35 Days, Cycle Variable, Menses 1-7 Days, Menses >/= 8 Days, Menses Variable, Cycle > 4 Weeks Between, No Menses for 6 Months, Heavy Menses, Light Menses, Normal Menses, Spotting Between Cycles, S/P Hysterectomy, Menopausal, Post Menopausal, Premenarche, Abnormal Vaginal Bleeding, Dysmenorrhea, Other - Musculoskeletal Musculoskeletal: absent: As Per HPI, Abnormal Gait, Arthralgias, Atrophy, Back Pain, Deformity, Joint Swelling, Limited Range of Motion, Loss of Height, Muscle Cramps, Muscle Weakness, Myalgias, Neck Pain, Numbness, Radiating Pain into Limb, Stiffness, Tingling, Other - Integumentary Integumentary: absent: As Per HPI, Acne, Alopecia, Bleeding Lesions, Change in Hair, Change in Nails, Change in Pigmentation, Changing Lesions, Dry Skin, Erythema, Furuncle, Hirsutism, Lesions, New Lesions, Non-Healing Lesions, Photosensitivity, Pruritus, Rash, Skin Pain, Skin Ulcer, Sores, Striae, Swelling, Unusual Bruising, Wounds, Jaundice, Other - Neurological Neurological: absent: As Per HPI, Abnormal Gait, Abnormal Hearing, Abnormal Movements, Abnormal Speech, Behavioral Changes, Burning Sensations, Confusion, Convulsions, Disequilibrium, Dizziness, Numbness, Focal Weakness, Frequent Falls, Headaches, Lack of Coordination, Loss of Vision, Memory Loss, Paresthesias, Radicular Pain, Restless Legs, Sensory Deficit, Syncope, Tingling, Tremor, Vertigo, Weakness, Other Visual Disturbances, Other - Psychiatric Psychiatric: absent: As Per HPI, Abnormal Sleep Pattern, Anhedonia, Anxiety, Auditory Hallucinations, Behavioral Changes, Change in Appetite, Change in Libido, Confusion, Depression, Difficulty Concentrating, Hallucinations, Homicidal Ideation, Hopelessness, Irritability, Memory Loss, Mood Swings, Panic Attacks, Paranoia, Suicidal Ideation, Visual Hallucinations, Tactile Hallucinations, Other - Endocrine Endocrine: absent: As Per HPI, Change in Body Appearance, Change in Libido, Cold Intolorance, Deepening of Voice, Excessive Sweating, Fatigue, Flushing, Heat Intolorance, Increase in Ring/Shoe/Hat Size, Palpitations, Polydipsia, Polyphagia, Polyuria, Other - Hematologic/Lymphatic Hematologic: absent: As Per HPI, Easy Bleeding, Easy Bruising, Lymphadenopathy, Other Past Patient History - Infectious Disease Hx of Infectious Diseases: None - Past Medical History & Family History Past Medical History?: Yes - Past Social History Smoking Status: Former Smoker - CARDIAC Hx Atrial Fibrillation: Yes Hx Cardia Arrhythmia: Yes Hx Congestive Heart Failure: Yes Hx Hypercholesterolemia: Yes Hx Hypertension: Yes - NEUROLOGICAL Hx Neurological Disorder: No - HEENT Hx HEENT Problems: Yes Hx Cataracts: Yes (bilateral) - RENAL Hx Chronic Kidney Disease: Yes - ENDOCRINE/METABOLIC Hx Hypothyroidism: Yes - HEMATOLOGICAL/ONCOLOGICAL Hx Anemia: Yes - INTEGUMENTARY Hx Dermatological Problems: No - MUSCULOSKELETAL/RHEUMATOLOGICAL Hx Arthritis: Yes - GASTROINTESTINAL Hx Gastrointestinal Disorders: Yes Hx Hemorrhoids: Yes - GENITOURINARY/GYNECOLOGICAL Hx Genitourinary Disorders: No - PSYCHIATRIC Hx Substance Use: No - SURGICAL HISTORY Hx Surgeries: Yes Hx Arteriovenous Shunt: Yes (LEFT ARM AV ,permacath) Hx Vascular Access Device: Yes (perma cath elaina cath) - ANESTHESIA Hx Anesthesia: Yes Hx Anesthesia Reactions: No Hx Malignant Hyperthermia: No Meds Allergies/Adverse Reactions: Allergies Allergy/AdvReac Type Severity Reaction Status Date / Time No Known Allergies Allergy Verified 04/14/18 08:40 - Medications Medications: Current Medications Acetaminophen (Tylenol 325mg Tab) 650 mg PO Q6 PRN PRN Reason: pain+fever Amiodarone HCl (Cordarone) 200 mg PO Q12H [facility] Last Admin: 05/03/18 09:50 Dose: 200 mg Apixaban (Eliquis) 2.5 mg PO BID [facility] Last Admin: 05/03/18 17:56 Dose: 2.5 mg Calcium Acetate (Phoslo) 1,334 mg PO TID [facility] Last Admin: 05/03/18 17:58 Dose: 1,334 mg Epoetin Eddie (Procrit) 10,000 unit IV MWF [facility] Last Admin: 05/03/18 15:41 Dose: 10,000 unit Famotidine (Pepcid) 20 mg PO DAILY [facility] Last Admin: 05/03/18 09:50 Dose: 20 mg Glipizide (Glucotrol) 10 mg PO ACBD [facility] Last Admin: 05/03/18 17:56 Dose: 10 mg Meropenem 500 mg/ Sodium (Chloride) 100 mls @ 100 mls/hr IVPB Q12H [facility]; Protocol Last Admin: 05/03/18 12:02 Dose: 100 mls/hr Insulin Aspart (Novolog) 0 unit SC ACHS [facility]; Protocol Last Admin: 05/03/18 16:28 Dose: Not Given Insulin Aspart (Novolog Mix 70/30 (70/30 Units/Ml)) 20 units SC ACBD [facility] Last Admin: 05/03/18 17:56 Dose: 20 units Insulin Detemir (Levemir) 12 unit SC Q12H [facility] Last Admin: 05/03/18 13:13 Dose: 12 units Ipratropium [place] (Atrovent) 0.5 mg IH RQ6 PRN PRN Reason: Shortness of Breath Last Admin: 05/03/18 11:49 Dose: 0.5 mg Levothyroxine Sodium (Synthroid) 75 mcg PO DAILY@0630 [facility] Last Admin: 05/03/18 05:39 Dose: 75 mcg Methylprednisolone (Solu-Medrol) 40 mg IVP DAILY [facility] Last Admin: 05/03/18 09:50 Dose: 40 mg Promethazine HCl/Dextromethorphan (Phenergan Dm Syrup) 10 ml PO Q6 PRN PRN Reason: Cough Last Admin: 05/03/18 17:57 Dose: 10 ml Tiotropium [place] (Spiriva) 18 mcg INH RQ24 [facility] Physical Exam - Constitutional Appears: Non-toxic, No Acute Distress, Chronically Ill - Head Exam Head Exam: ATRAUMATIC, NORMAL INSPECTION, NORMOCEPHALIC - Eye Exam Eye Exam: EOMI, PERRL. absent: Scleral icterus - ENT Exam ENT Exam: Mucous Membranes Dry, Normal External Ear Exam, Normal Oropharynx - Neck Exam Neck exam: Negative for: Lymphadenopathy - Respiratory Exam Respiratory Exam: Decreased Breath Sounds, Prolonged Expiratory Phase, Rhonchi - Cardiovascular Exam Cardiovascular Exam: REGULAR RHYTHM, +S1, +S2 - GI/Abdominal Exam GI & Abdominal Exam: Diminished Bowel Sounds, Distended, Soft. absent: Organomegaly, Pulsatile Mass, Rebound, Rigid, Tenderness - Rectal Exam Rectal Exam: Deferred - Exam Exam: NORMAL INSPECTION - Extremities Exam Extremities exam: Positive for: pedal edema, pedal pulses present. Negative for: calf tenderness, tenderness - Back Exam Back exam: absent: CVA tenderness (L), CVA tenderness (R), paraspinal tenderness - Neurological Exam Neurological exam: Alert, CN II-XII Intact, Oriented x3, Reflexes Normal - Psychiatric Exam Psychiatric exam: Depressed - Skin Skin Exam: Dry, Intact Results - Vital Signs Recent Vital Signs: Last Vital Signs Temp 97.8 F 05/03/18 17:15 Pulse 97 H 05/03/18 17:15 Resp 21 05/03/18 17:15 BP 129/56 L 05/03/18 17:15 Pulse Ox 97 05/03/18 17:15 - Labs Result Diagrams: 05/03/18 06:24 05/03/18 06:21 Labs: Laboratory Results - last 24 hr 05/02/18 05/02/18 05/03/18 20:09 21:18 06:21 WBC RBC Hgb Hct MCV MCH MCHC RDW Plt Count MPV Neut % (Auto) Lymph % (Auto) [place] % (Auto) Eos % (Auto) Baso % (Auto) Neut # (Auto) Lymph # (Auto) [place] # (Auto) Eos # (Auto) Baso # (Auto) Neutrophils % (Manual) Band Neutrophils % Lymphocytes % (Manual) Reactive Lymphs % Monocytes % (Manual) Toxic Granulation Platelet Estimate Large Platelets [place] Cells Sodium 136 Potassium 4.1 Chloride 94 L Carbon Dioxide 26 Anion Gap 19 BUN 72 H Creatinine 4.6 H Est GFR ( Amer) 11 Est GFR (Non-Af Amer) 9 POC Glucose (mg/dL) 276 H Random Glucose 287 H D Lactic Acid 3.3 H Calcium 8.4 L Phosphorus 7.7 H Magnesium 2.2 Total Bilirubin 0.4 AST 26 ALT 38 Alkaline Phosphatase 60 Total Protein 5.9 L Albumin 3.3 L Globulin 2.6 Albumin/Globulin Ratio 1.3 Procalcitonin Free T4 TSH 3rd Generation < 0.02 L 05/03/18 05/03/18 05/03/18 06:21 06:21 06:24 WBC 32.7 H D RBC 3.12 L Hgb 9.7 L Hct 29.6 L MCV 95.0 MCH 31.1 H MCHC 32.7 L RDW 14.6 H Plt Count 141 MPV 11.7 Neut % (Auto) 95.9 H Lymph % (Auto) 2.2 L [place] % (Auto) 1.8 Eos % (Auto) 0.0 Baso % (Auto) 0.1 Neut # (Auto) 31.3 H Lymph # (Auto) 0.7 L [place] # (Auto) 0.6 Eos # (Auto) 0.0 Baso # (Auto) 0.0 Neutrophils % (Manual) 79 H Band Neutrophils % 17 H* Lymphocytes % (Manual) 3 L Reactive Lymphs % 1 H Monocytes % (Manual) TEST NOT PERFORMED Toxic Granulation Present Platelet Estimate Normal Large Platelets Present Nic Cells Slight Sodium Potassium Chloride Carbon Dioxide Anion Gap BUN Creatinine Est GFR ( Amer) Est GFR (Non-Af Amer) POC Glucose (mg/dL) Random Glucose Lactic Acid 2.2 H Calcium Phosphorus Magnesium Total Bilirubin AST ALT Alkaline Phosphatase Total Protein Albumin Globulin Albumin/Globulin Ratio Procalcitonin Free T4 2.18 TSH 3rd Generation 05/03/18 05/03/18 05/03/18 07:27 11:23 11:33 WBC RBC Hgb Hct MCV MCH MCHC RDW Plt Count MPV Neut % (Auto) Lymph % (Auto) [place] % (Auto) Eos % (Auto) Baso % (Auto) Neut # (Auto) Lymph # (Auto) [place] # (Auto) Eos # (Auto) Baso # (Auto) Neutrophils % (Manual) Band Neutrophils % Lymphocytes % (Manual) Reactive Lymphs % Monocytes % (Manual) Toxic Granulation Platelet Estimate Large Platelets [place] Cells Sodium Potassium Chloride Carbon Dioxide Anion Gap BUN Creatinine Est GFR ( Amer) Est GFR (Non-Af Amer) POC Glucose (mg/dL) 365 H 387 H Random Glucose Lactic Acid Calcium Phosphorus Magnesium Total Bilirubin AST ALT Alkaline Phosphatase Total Protein Albumin Globulin Albumin/Globulin Ratio Procalcitonin 1.42 H Free T4 TSH 3rd Generation 05/03/18 16:24 WBC RBC Hgb Hct MCV MCH MCHC RDW Plt Count MPV Neut % (Auto) Lymph % (Auto) [place] % (Auto) Eos % (Auto) Baso % (Auto) Neut # (Auto) Lymph # (Auto) [place] # (Auto) Eos # (Auto) Baso # (Auto) Neutrophils % (Manual) Band Neutrophils % Lymphocytes % (Manual) Reactive Lymphs % Monocytes % (Manual) Toxic Granulation Platelet Estimate Large Platelets Nic Cells Sodium Potassium Chloride Carbon Dioxide Anion Gap BUN Creatinine Est GFR ( Amer) Est GFR (Non-Af Amer) POC Glucose (mg/dL) 84 Random Glucose Lactic Acid Calcium Phosphorus Magnesium Total Bilirubin AST ALT Alkaline Phosphatase Total Protein Albumin Globulin Albumin/Globulin Ratio Procalcitonin Free T4 TSH 3rd Generation Assessment & Plan (1) COPD exacerbation Status: Acute (2) Multiple myeloma Status: Acute (3) Paroxysmal A-fib Status: Acute (4) Bronchitis Status: Acute (5) CHF exacerbation Status: Acute (6) COPD (chronic obstructive pulmonary disease) Status: Acute (7) ESRD (end stage renal disease) Status: Acute (8) History of atrial fibrillation Status: Acute (9) History of gastroesophageal reflux (GERD) Status: Acute (10) Multiple myeloma Status: Acute - Assessment and Plan (Free Text) Assessment: 83 y/o female, with history of COPD, CHF, ESRD on HD , A-fib, and anemia, Hep C ab + was admitted with SOB associated with chills and a productive cough Cough and SOB ppersist despite several days of antibiotics CT chest and CXR noted cultures sent started on Vanco Merrem Mycfungin added will send sputum fungus and fungitell
[2018-05-03] MEDS: Micafungin 100 MG in Sodium Chloride 0.9% 100 ML IV SCH (19:14)
[2018-05-03] MEDS ORDERED: Budesonide 0.5 mg/2 ml Inhal Susp UD INH SCH (20:00)
[2018-05-03] MEDS ORDERED: Insulin Detemir 100 units/ml Vial (Levemir) SC SCH (22:00)
--- NOTE | 2018-05-03 22:34 | CON ---
DATE: 05/03/2018 REASON FOR CONSULTATION: Known case of multiple myeloma. HISTORY OF PRESENT ILLNESS: An 83-year-old female with past medical history significant for COPD, CHF, ESRD on hemodialysis, diabetes mellitus, atrial fibrillation, leukocytosis. Multiple myeloma in remission. Being treated with Velcade and Decadron once a week, four weeks on, two weeks off, tolerating very well. The patient is in remission. The patient had a dialysis done on 01/05/2018 and then came to my office. The patient looked very pale, diaphoretic, short of breath. So, was sent to the emergency room, admitted and then called on consult for further evaluation and suggestion. PAST MEDICAL HISTORY: Significant for COPD, CHF, ESRD, on dialysis, diabetes mellitus, atrial fibrillation, multiple myeloma. FAMILY HISTORY: Noncontributory. SOCIAL HISTORY: Quit 30 years ago. No ethanol abuse. No drug abuse. A very supportive brother. MEDICATIONS: The patient is on levothyroxine, Crestor, glipizide, metoprolol, famotidine, acyclovir, calcium acetate, Colace. ALLERGIES: NO KNOWN DRUG ALLERGIES. REVIEW OF SYSTEMS: Denies any headache, dizziness, or blackout. No chest pain or palpitation. No fever or chills. No cough or sputum. No abdominal pain. No nausea, vomiting, melena, hemoptysis, or hematemesis. No dysuria or hematuria. No change in the bowel habit. No change in the color of the stool. No tingling or numbness. No localized weakness. No bone pain. PHYSICAL EXAMINATION: GENERAL: Awake, alert, oriented, quiet, pleasant, not in acute distress. VITAL SIGNS: Pulse 90, respirations 22, blood pressure 120/70, afebrile. HEENT: Head: Normocephalic, atraumatic. Eyes: Conjunctivae pink, sclerae white. Pupils reacting to light. Ears, nose, and throat: Within normal limits. LUNGS: Bilaterally good air entry. Minimal bibasilar rales. HEART: S1 and S2, regular. No gallop. No murmur. ABDOMEN: Soft, nondistended, nontender. No hepatosplenomegaly. CENTRAL NERVOUS SYSTEM: No gross motor or sensory deficit. LYMPH NODES: No cervical, axillary, or inguinal lymph nodes palpable. EXTREMITIES: No edema, no cyanosis, no clubbing. No varicose veins. LABORATORY DATA: WBC 32,700, neutrophils 79%, band 17%, hemoglobin 9.7, platelet count 141,000. IMPRESSION: 1. Multiple myeloma. 2. Leukocytosis, neutrophilia, reactive. PLAN: Clinical status discussed with the patient and the brother. The patient's multiple myeloma is in remission. Does not require any treatment at the present time. Upon discharge, I will follow up into the office. The patient has baseline leukocytosis with neutrophilia. Now, the white cell and neutrophils are increased, may be related to the steroids and the infection. Discussed with the primary attending. Thank you for letting me participate in the care of this patient and I will follow up the patient with you. Iggy Martinez MD
[2018-05-04] MEDS: Insulin Detemir 100 units/ml Vial (Levemir) SC SCH ×2 (01:00→12:56)
[2018-05-04] MEDS: Promethazine DM 12.5 mg-30 mg/10 ml Syrup PO PRN ×2 (01:52→11:10)
--- NOTE | 2018-05-04 02:22 | CP.PCM.PN ---
<Yani Horan - Last Filed: 05/04/18 05:37> Subjective - Date & Time of Evaluation Date of Evaluation: 05/04/18 Time of Evaluation: 05:33 - Subjective Subjective: Progress Note Medicine Patient seen and examined at bedside. Denies chest pain, palpitations, SOB, n/v/d, fevers, chills. Patient endorses some sweating in her back and some cough. Patient in phenergan PRN and per RN patient improving clinically. Objective - Vital Signs/Intake and Output Vital Signs (last 24 hours): Temp Pulse Resp BP Pulse Ox 97.9 F 81 19 112/52 L 99 05/04/18 00:00 05/04/18 00:00 05/04/18 00:00 05/03/18 23:52 05/04/18 00:00 Intake and Output: 05/03/18 05/04/18 18:59 06:59 Intake Total 940 Balance 940 - Medications Medications: Current Medications Acetaminophen (Tylenol 325mg Tab) 650 mg PO Q6 PRN PRN Reason: pain+fever Amiodarone HCl (Cordarone) 200 mg PO Q12H [facility] Last Admin: 05/03/18 22:14 Dose: 200 mg Apixaban (Eliquis) 2.5 mg PO BID [facility] Last Admin: 05/03/18 17:56 Dose: 2.5 mg Calcium Acetate (Phoslo) 1,334 mg PO TID [facility] Last Admin: 05/03/18 17:58 Dose: 1,334 mg Epoetin [place] (Procrit) 10,000 unit IV MWF [facility] Last Admin: 05/03/18 15:41 Dose: 10,000 unit Famotidine (Pepcid) 20 mg PO DAILY [facility] Last Admin: 05/03/18 09:50 Dose: 20 mg Glipizide (Glucotrol) 10 mg PO ACBD [facility] Last Admin: 05/03/18 17:56 Dose: 10 mg Meropenem 500 mg/ Sodium (Chloride) 100 mls @ 100 mls/hr IVPB Q12H [facility]; Protocol Last Admin: 05/03/18 12:02 Dose: 100 mls/hr Micafungin Sodium 100 mg/ (Sodium Chloride) 100 mls @ 100 mls/hr IV Q24H [facility]; Protocol Last Admin: 05/03/18 19:14 Dose: 100 mls/hr Insulin Aspart (Novolog) 0 unit SC ACHS [facility]; Protocol Last Admin: 05/03/18 22:14 Dose: Not Given Insulin Aspart (Novolog Mix 70/30 (70/30 Units/Ml)) 20 units SC ACBD [facility] Last Admin: 05/03/18 17:56 Dose: 20 units Insulin Detemir (Levemir) 12 unit SC Q12H [facility] Last Admin: 05/03/18 13:13 Dose: 12 units Ipratropium [place] (Atrovent) 0.5 mg IH RQ6 PRN PRN Reason: Shortness of Breath Last Admin: 05/03/18 11:49 Dose: 0.5 mg Levothyroxine Sodium (Synthroid) 75 mcg PO DAILY@0630 [facility] Last Admin: 05/03/18 05:39 Dose: 75 mcg Methylprednisolone (Solu-Medrol) 40 mg IVP DAILY [facility] Last Admin: 05/03/18 09:50 Dose: 40 mg Promethazine HCl/Dextromethorphan (Phenergan Dm Syrup) 10 ml PO Q6 PRN PRN Reason: Cough Last Admin: 05/04/18 01:52 Dose: 10 ml Tiotropium [place] (Spiriva) 18 mcg INH RQ24 [facility] - Labs Labs: 05/03/18 06:24 05/03/18 06:21 PT 13.8 SECONDS (9.7-12.2) H 05/01/18 19:00 INR 1.3 05/01/18 19:00 APTT 103 SECONDS (21-34) H* D 05/02/18 06:09 Assessment and Plan - Assessment and Plan (Free Text) Assessment: 83 y/o f with PMHx of COPD, CHF, ESRD on HD MWF, DM, Afib, anemia, MM and hypothyroidism presented to the ED w/ SOB x 3 days on 05/01. She was transferred to the ICU directly from the ED to manage her new onset SVT. New onset SVT - resolved -When patient transferred to ED on admission 05/01, was treated by amidarone drip and 200J synchronized cardioversion. Heparin drip DCed Currently NSR. -amidarone 200 mg PO q12h -eliquis 2.5 mg BID -f/u heparin ab panel -cardiology Dr. Gold following, appreciate recs Acute Leukocytosis -WBC 32.7 from 9 05/02 to 05/03, and bands 17% -Merrem started 05/03 -Dr. Luong, ID, on the case. Recs appreciated. -Dr. Luong recs Vanco, however, only 1 dose given on records. Consult for further recs, especially given ESRD. COPD - stable -CXR w/o active disease and CT chest w/ possible COPD, no signs of PNA -spiriva daily -solumedrol 40 mg IV daily -atrovent PRN -maintain spo2>92%, currently on NC -pulm Dr. Kessler following, appreciate recs [place] [address], though CXR no active disease -patient w/o diuresis; patient on HD MWF ESRD -on HD MWF -BUN/Cr on admission 05/06 -nephro Dr. Bill following, appreciate recs DM2 -levemir 12 u sq q12h -glocotrol 10 mg PO ACBC -ISS ACHS -hypoglycemic protocol Hypothyroid -on synthroid at home but TSH low on admission -Dr. Davon ralph consult, recs appreciated DVT: eliquis 2.5 mg BID GI: home pepcid 20 mg PO <Miranda Moscoso - Last Filed: 05/04/18 09:46> Objective - Vital Signs/Intake and Output Vital Signs (last 24 hours): Temp Pulse Resp BP Pulse Ox 98.2 F 85 19 120/60 98 05/04/18 07:43 05/04/18 07:43 05/04/18 07:43 05/04/18 07:43 05/04/18 07:43 Intake and Output: 05/04/18 05/04/18 06:59 18:59 Intake Total 540 Output Total 2500 Balance -1960 - Medications Medications: Current Medications Acetaminophen (Tylenol 325mg Tab) 650 mg PO Q6 PRN PRN Reason: pain+fever Amiodarone HCl (Cordarone) 200 mg PO Q12H [facility] Last Admin: 05/04/18 09:03 Dose: 200 mg Apixaban (Eliquis) 2.5 mg PO BID [facility] Last Admin: 05/04/18 09:03 Dose: 2.5 mg Calcium Acetate (Phoslo) 1,334 mg PO TID [facility] Last Admin: 05/04/18 09:03 Dose: 1,334 mg Epoetin Eddie (Procrit) 10,000 unit IV MWF [facility] Last Admin: 05/03/18 15:41 Dose: 10,000 unit Famotidine (Pepcid) 20 mg PO DAILY [facility] Last Admin: 05/04/18 09:03 Dose: 20 mg Glipizide (Glucotrol) 10 mg PO ACBD [facility] Last Admin: 05/04/18 07:57 Dose: 10 mg Meropenem 500 mg/ Sodium (Chloride) 100 mls @ 100 mls/hr IVPB Q12H [facility]; Protocol Last Admin: 05/04/18 02:29 Dose: 100 mls/hr Micafungin Sodium 100 mg/ (Sodium Chloride) 100 mls @ 100 mls/hr IV Q24H [facility]; Protocol Last Admin: 05/03/18 19:14 Dose: 100 mls/hr Insulin Aspart (Novolog) [address] [facility]; Protocol Last Admin: 05/04/18 07:51 Dose: Not Given Insulin Aspart (Novolog Mix 70/30 (70/30 Units/Ml)) 20 units SC ACBD [facility] Last Admin: 05/04/18 07:52 Dose: Not Given Insulin Detemir (Levemir) 12 unit SC Q12H [facility] Last Admin: 05/04/18 01:00 Dose: Not Given Ipratropium [place] (Atrovent) 0.5 mg IH RQ6 PRN PRN Reason: Shortness of Breath Last Admin: 05/04/18 08:19 Dose: 0.5 mg Levothyroxine Sodium (Synthroid) 75 mcg PO DAILY@0630 [facility] Last Admin: 05/04/18 05:29 Dose: 75 mcg Methylprednisolone (Solu-Medrol) 40 mg IVP DAILY [facility] Last Admin: 05/04/18 09:03 Dose: 40 mg Promethazine HCl/Dextromethorphan (Phenergan Dm Syrup) 10 ml PO Q6 PRN PRN Reason: Cough Last Admin: 05/04/18 01:52 Dose: 10 ml Tiotropium [place] (Spiriva) 18 mcg INH RQ24 [facility] Last Admin: 05/04/18 08:19 Dose: 18 mcg - Labs Labs: 05/04/18 05:40 05/04/18 05:40 PT 13.8 SECONDS (9.7-12.2) H 05/01/18 19:00 INR 1.3 05/01/18 19:00 APTT 103 SECONDS (21-34) H* D 05/02/18 06:09 Attending/Attestation - Attestation I have personally seen and examined this patient.: Yes I have fully participated in the care of the patient.: Yes I have reviewed all pertinent clinical information, including history, physical exam and plan: Yes Notes (Text): seen and examined this morning,Patient feels better,sitting on chair comfortable,less sob,less cough WBC is improving,bands improving,CT chest without pneumonia changes s/p dailysis yesterday HR sinus in 80ies Lungs-Bilateral rhonchi /much better than yesterday continue Merrem and micafungin,vanco random level this am 26.follow sputum cultures and fungal study blood cultures no growth continue Eliquis,solumedrol 40mg daily,spiriva ,synthroid 75Mcg,glipizide and insulin appreciated consultants f/u I agree with the resident's documentation
[2018-05-04] MEDS: Meropenem 500 MG in Sodium Chloride 0.9% 100 ML IVPB SCH ×2 (02:29→12:57)
[2018-05-04] MEDS: Levothyroxine 75 MCG TAB PO SCH (05:29)
[2018-05-04 05:51] LABS: BASO % 0.1 % (0.0-2.0); LYMPH # 0.8 K/uL (1.0-4.3); LYMPH % 3.1 % (20.0-40.0); MEAN CELL VOLUME 93.1 fL (81.0-99.0); MEAN CORPUSCULAR HEMOGLOBIN 30.6 pg (27.0-31.0); MEAN CORPUSCULAR HGB CONC 32.9 g/dL (33.0-37.0); MEAN PLATELET VOLUME 11.2 fL (7.2-11.7); MONO # 0.7 K/uL (0.0-0.8); MONO % 2.7 % (0.0-10.0); NEUT # 23.7 K/uL (1.8-7.0); NEUT % 94.1 % (50.0-75.0); PLATELET COUNT 136 K/uL (130-400); RBC 2.95 Mil/uL (3.80-5.20); RED CELL DISTRIBUTION WIDTH 14.4 % (11.5-14.5); WHITE BLOOD COUNT 25.1 K/uL (4.8-10.8)
[2018-05-04 06:26] LABS: ALB/GLOB RATIO 1.2 (1.0-2.1); ALBUMIN 3.1 g/dL (3.5-5.0); CALCIUM 8.3 mg/dl (8.6-10.4)
[2018-05-04] MEDS: (Novolog) Insulin Aspart, Recombinant 100 u/ml 10 ml vial SC SCH ×4 (07:51→22:13)
[2018-05-04] MEDS: (Novolog Mix 70/30) Insulin Aspart/Insulin Aspar 100 units/ml SC SCH ×2 (07:52→17:55)
[2018-05-04] MEDS: Ipratropium 0.02% Inhal Soln (0.5 mg/2.5 ml) UD IH PRN (08:19)
[2018-05-04] MEDS: Tiotropium 18 mcg Cap For Inhalation INH SCH (08:19)
[2018-05-04 08:33] LABS: LYMPHOCYTE 5 % (20-40); MONOCYTE 4 % (0-10); TOTAL CELLS COUNTED 100
[2018-05-04 08:35] LABS: BANDS 7 % (0-2); NEUTROPHIL 84 % (50-75)
[2018-05-04 08:36] LABS: ANISOCYTOSIS SLIGHT
[2018-05-04 08:37] LABS: LARGE PLATELETS PRESENT
[2018-05-04 08:40] LABS: PLATELET ESTIMATE NORMAL (NORMAL)
[2018-05-04] MEDS: MethylPREDNISolone 40 mg Vial IVP SCH (09:03)
--- NOTE | 2018-05-04 09:43 | CP.PCM.PN ---
Subjective - Date & Time of Evaluation Date of Evaluation: 05/04/18 Time of Evaluation: 09:41 - Subjective Subjective: pt seen and examined in chair, no distress reports still with cough, no SOB no Chest pain had HD yesterday ROS- as per HPI, other than that 10 point ROS negative Objective - Vital Signs/Intake and Output Vital Signs (last 24 hours): Temp Pulse Resp BP Pulse Ox 98.2 F 85 19 120/60 98 05/04/18 07:43 05/04/18 07:43 05/04/18 07:43 05/04/18 07:43 05/04/18 07:43 Intake and Output: 05/04/18 05/04/18 06:59 18:59 Intake Total 540 Output Total 2500 Balance -1960 - Medications Medications: Current Medications Acetaminophen (Tylenol 325mg Tab) 650 mg PO Q6 PRN PRN Reason: pain+fever Amiodarone HCl (Cordarone) 200 mg PO Q12H [facility] Last Admin: 05/04/18 09:03 Dose: 200 mg Apixaban (Eliquis) 2.5 mg PO BID [facility] Last Admin: 05/04/18 09:03 Dose: 2.5 mg Calcium Acetate (Phoslo) 1,334 mg PO TID [facility] Last Admin: 05/04/18 09:03 Dose: 1,334 mg Epoetin [place] (Procrit) 10,000 unit IV MWF [facility] Last Admin: 05/03/18 15:41 Dose: 10,000 unit Famotidine (Pepcid) 20 mg PO DAILY [facility] Last Admin: 05/04/18 09:03 Dose: 20 mg Glipizide (Glucotrol) 10 mg PO ACBD [facility] Last Admin: 05/04/18 07:57 Dose: 10 mg Meropenem 500 mg/ Sodium (Chloride) 100 mls @ 100 mls/hr IVPB Q12H [facility]; Protocol Last Admin: 05/04/18 02:29 Dose: 100 mls/hr Micafungin Sodium 100 mg/ (Sodium Chloride) 100 mls @ 100 mls/hr IV Q24H [facility]; Protocol Last Admin: 05/03/18 19:14 Dose: 100 mls/hr Insulin Aspart (Novolog) 0 unit SC ACHS [facility]; Protocol Last Admin: 05/04/18 07:51 Dose: Not Given Insulin Aspart (Novolog Mix 70/30 (70/30 Units/Ml)) 20 units SC ACBD [facility] Last Admin: 05/04/18 07:52 Dose: Not Given Insulin Detemir (Levemir) 12 unit SC Q12H [facility] Last Admin: 05/04/18 01:00 Dose: Not Given Ipratropium [place] (Atrovent) 0.5 mg IH RQ6 PRN PRN Reason: Shortness of Breath Last Admin: 05/04/18 08:19 Dose: 0.5 mg Levothyroxine Sodium (Synthroid) 75 mcg PO DAILY@0630 [facility] Last Admin: 05/04/18 05:29 Dose: 75 mcg Methylprednisolone (Solu-Medrol) 40 mg IVP DAILY [facility] Last Admin: 05/04/18 09:03 Dose: 40 mg Promethazine HCl/Dextromethorphan (Phenergan Dm Syrup) 10 ml PO Q6 PRN PRN Reason: Cough Last Admin: 05/04/18 01:52 Dose: 10 ml Tiotropium [place] (Spiriva) 18 mcg INH RQ24 [facility] Last Admin: 05/04/18 08:19 Dose: 18 mcg - Labs Labs: 05/04/18 05:40 05/04/18 05:40 PT 13.8 SECONDS (9.7-12.2) H 05/01/18 19:00 INR 1.3 05/01/18 19:00 APTT 103 SECONDS (21-34) H* D 05/02/18 06:09 - Constitutional Appears: Well, Non-toxic - Head Exam Head Exam: ATRAUMATIC, NORMOCEPHALIC - Eye Exam Eye Exam: EOMI, PERRL - ENT Exam ENT Exam: Mucous Membranes Moist - Neck Exam Neck Exam: absent: Lymphadenopathy - Respiratory Exam Respiratory Exam: Rhonchi, NORMAL BREATHING PATTERN. absent: Wheezes - Cardiovascular Exam Cardiovascular Exam: REGULAR RHYTHM, +S1, +S2 - GI/Abdominal Exam GI & Abdominal Exam: Soft. absent: Distended, Tenderness - Extremities Exam Extremities Exam: Full ROM. absent: Pedal Edema - Neurological Exam Neurological Exam: Alert, Awake Assessment and Plan (1) Fluid overload Status: Acute (2) Multiple myeloma Status: Acute (3) Paroxysmal A-fib Status: Acute (4) CHF exacerbation Status: Acute (5) COPD exacerbation Status: Acute (6) ESRD (end stage renal disease) Status: Acute - Assessment and Plan (Free Text) Plan: maintain HD MW, next HD sunday bronchodilators PT as tolerated
--- NOTE | 2018-05-04 16:48 | CP.PCM.PN ---
Subjective - Date & Time of Evaluation Date of Evaluation: 05/04/18 Time of Evaluation: 16:48 Objective - Vital Signs/Intake and Output Vital Signs (last 24 hours): Temp Pulse Resp BP Pulse Ox 98.6 F 89 22 115/39 L 98 05/04/18 12:00 05/04/18 12:00 05/04/18 12:00 05/04/18 12:00 05/04/18 12:00 Intake and Output: 05/04/18 05/04/18 06:59 18:59 Intake Total 540 300 Output Total 2500 Balance -1960 300 - Medications Medications: Current Medications Acetaminophen (Tylenol 325mg Tab) 650 mg PO Q6 PRN PRN Reason: pain+fever Amiodarone HCl (Cordarone) 200 mg PO Q12H [facility] Last Admin: 05/04/18 09:03 Dose: 200 mg Apixaban (Eliquis) 2.5 mg PO BID [facility] Last Admin: 05/04/18 09:03 Dose: 2.5 mg Calcium Acetate (Phoslo) 1,334 mg PO TID [facility] Last Admin: 05/04/18 14:47 Dose: 1,334 mg Epoetin Eddie (Procrit) 10,000 unit IV MWF [facility] Last Admin: 05/03/18 15:41 Dose: 10,000 unit Famotidine (Pepcid) 20 mg PO DAILY [facility] Last Admin: 05/04/18 09:03 Dose: 20 mg Glipizide (Glucotrol) 10 mg PO ACBD [facility] Last Admin: 05/04/18 07:57 Dose: 10 mg Meropenem 500 mg/ Sodium (Chloride) 100 mls @ 100 mls/hr IVPB Q12H [facility]; Protoco l Last Admin: 05/04/18 12:57 Dose: 100 mls/hr Micafungin Sodium 100 mg/ (Sodium Chloride) 100 mls @ 100 mls/hr IV Q24H [facility]; Protocol Last Admin: 05/03/18 19:14 Dose: 100 mls/hr Insulin Aspart (Novolog) 0 unit SC ACHS [facility]; Protocol Last Admin: 05/04/18 12:56 Dose: 3 units Insulin Aspart (Novolog Mix 70/30 (70/30 Units/Ml)) 20 units SC ACBD [facility] Last Admin: 05/04/18 07:52 Dose: Not Given Insulin Detemir (Levemir) 12 unit SC Q12H [facility] Last Admin: 05/04/18 12:56 Dose: 12 units Ipratropium [place] (Atrovent) 0.5 mg IH RQ6 PRN PRN Reason: Shortness of Breath Last Admin: 05/04/18 08:19 Dose: 0.5 mg Levothyroxine Sodium (Synthroid) 75 mcg PO DAILY@0630 [facility] Last Admin: 05/04/18 05:29 Dose: 75 mcg Methylprednisolone (Solu-Medrol) 40 mg IVP DAILY [facility] Last Admin: 05/04/18 09:03 Dose: 40 mg Promethazine HCl/Dextromethorphan (Phenergan Dm Syrup) 10 ml PO Q6 PRN PRN Reason: Cough Last Admin: 05/04/18 11:10 Dose: 10 ml Tiotropium [place] (Spiriva) 18 mcg INH RQ24 [facility] Last Admin: 05/04/18 08:19 Dose: 18 mcg - Labs Labs: 05/04/18 05:40 05/04/18 05:40 PT 13.8 SECONDS (9.7-12.2) H 05/01/18 19:00 INR 1.3 05/01/18 19:00 APTT 103 SECONDS (21-34) H* D 05/02/18 06:09
[2018-05-04] MEDS: Micafungin 100 MG in Sodium Chloride 0.9% 100 ML IV SCH (18:59)
--- NOTE | 2018-05-04 19:16 | CARD ---
APPROVED REPORT Date of service: 05/02/2018 EKG Measurement Heart [id number] <Conclusion> Normal sinus rhythm Prolonged QT Abnormal ECG
[2018-05-05] MEDS: Insulin Detemir 100 units/ml Vial (Levemir) SC SCH ×2 (01:00→12:08)
[2018-05-05] MEDS: Meropenem 500 MG in Sodium Chloride 0.9% 100 ML IVPB SCH ×2 (01:03→12:02)
[2018-05-05] MEDS: Promethazine DM 12.5 mg-30 mg/10 ml Syrup PO PRN ×3 (03:56→17:43)
--- NOTE | 2018-05-05 04:08 | CP.PCM.PN ---
<Yani Horan - Last Filed: 05/05/18 05:03> Subjective - Date & Time of Evaluation Date of Evaluation: 05/05/18 Time of Evaluation: 04:08 - Subjective Subjective: Medicine Progress Note Patient examined at bedside. She states she cannot sleep in the ICU environment. She also states she is still having cough and a little bit of wheeze. Otherwise denies pain and feeling better gradually. Objective - Vital Signs/Intake and Output Vital Signs (last 24 hours): Temp Pulse Resp BP Pulse Ox 97.8 F 93 H 14 93/46 L 99 05/05/18 00:00 05/05/18 00:00 05/05/18 00:00 05/05/18 00:00 05/05/18 00:00 Intake and Output: 05/04/18 05/05/18 18:59 06:59 Intake Total 900 100 Balance 900 100 - Medications Medications: Current Medications Acetaminophen (Tylenol 325mg Tab) 650 mg PO Q6 PRN PRN Reason: pain+fever Amiodarone HCl (Cordarone) 200 mg PO Q12H [facility] Last Admin: 05/04/18 21:39 Dose: 200 mg Apixaban (Eliquis) 2.5 mg PO BID [facility] Last Admin: 05/04/18 17:55 Dose: 2.5 mg Calcium Acetate (Phoslo) 1,334 mg PO TID [facility] Last Admin: 05/04/18 18:04 Dose: 1,334 mg Epoetin Eddie (Procrit) 10,000 unit IV MWF [facility] Last Admin: 05/03/18 15:41 Dose: 10,000 unit Famotidine (Pepcid) 20 mg PO DAILY [facility] Last Admin: 05/04/18 09:03 Dose: 20 mg Glipizide (Glucotrol) 10 mg PO ACBD [facility] Last Admin: 05/04/18 17:55 Dose: 10 mg Meropenem 500 mg/ Sodium (Chloride) 100 mls @ 100 mls/hr IVPB Q12H [facility]; Protocol Last Admin: 05/05/18 01:03 Dose: 100 mls/hr Micafungin Sodium 100 mg/ (Sodium Chloride) 100 mls @ 100 mls/hr IV Q24H [facility]; Protocol Last Admin: 05/04/18 18:59 Dose: 100 mls/hr Insulin Aspart (Novolog) 0 unit SC ACHS [facility]; Protocol Last Admin: 05/04/18 22:13 Dose: Not Given Insulin Aspart (Novolog Mix 70/30 (70/30 Units/Ml)) 20 units SC ACBD [facility] Last Admin: 05/04/18 17:55 Dose: 20 units Insulin Detemir (Levemir) 12 unit SC Q12H [facility] Last Admin: 05/05/18 01:00 Dose: Not Given Ipratropium [place] (Atrovent) 0.5 mg IH RQ6 PRN PRN Reason: Shortness of Breath Last Admin: 05/04/18 08:19 Dose: 0.5 mg Levothyroxine Sodium (Synthroid) 75 mcg PO DAILY@0630 [facility] Last Admin: 05/04/18 05:29 Dose: 75 mcg Methylprednisolone (Solu-Medrol) 40 mg IVP DAILY [facility] Last Admin: 05/04/18 09:03 Dose: 40 mg Promethazine HCl/Dextromethorphan (Phenergan Dm Syrup) 10 ml PO Q6 PRN PRN Reason: Cough Last Admin: 05/05/18 03:56 Dose: 10 ml Tiotropium [place] (Spiriva) 18 mcg INH RQ24 [facility] Last Admin: 05/04/18 08:19 Dose: 18 mcg - Labs Labs: 05/04/18 05:40 05/04/18 05:40 PT 13.8 SECONDS (9.7-12.2) H 05/01/18 19:00 INR 1.3 05/01/18 19:00 APTT 103 SECONDS (21-34) H* D 05/02/18 06:09 - Constitutional Appears: Well, Non-toxic - Head Exam Head Exam: ATRAUMATIC, NORMAL INSPECTION, NORMOCEPHALIC - Eye Exam Eye Exam: Normal appearance - Neck Exam Neck Exam: Normal Inspection - Respiratory Exam Respiratory Exam: Rhonchi, Wheezes, NORMAL BREATHING PATTERN - Cardiovascular Exam Cardiovascular Exam: REGULAR RHYTHM - GI/Abdominal Exam GI & Abdominal Exam: Soft, Normal Bowel Sounds - Extremities Exam Extremities Exam: absent: Calf Tenderness - Neurological Exam Neurological Exam: Alert, Awake - Psychiatric Exam Psychiatric exam: Normal Affect, Normal Mood - Skin Skin Exam: Dry, Intact, Normal Color, Warm Assessment and Plan - Assessment and Plan (Free Text) Assessment: 83 y/o f with PMHx of COPD, CHF, ESRD on HD MWF, DM, Afib, anemia, MM and hypothyroidism presented to the ED w/ SOB x 3 days on 05/01. She was transferred to the ICU directly from the ED to manage her new onset SVT. New onset SVT - resolved -When patient transferred to ED on admission 05/01, was treated by amidarone drip and 200J synchronized cardioversion. Heparin drip DCed Currently NSR. -amidarone 200 mg PO q12h -eliquis 2.5 mg BID -f/u heparin ab panel -cardiology Dr. Gold following, appreciate recs Acute Leukocytosis -WBC 32.7 from 9 05/02 to 05/03, and bands 17% --> 25.1 on 05/04 -Merrem started 05/03 -Dr. Luong, ID, on the case. Recs appreciated. -random vanc wnl 05/04 -Dr. Luong recs Vanco, however, only 1 dose given on records. Consult for further recs, especially given ESRD. COPD - stable -CXR w/o active disease and CT chest w/ possible COPD, no signs of PNA -spiriva daily -solumedrol 40 mg IV daily -atrovent PRN -maintain spo2>92%, currently on NC -pulm Dr. Kessler following, appreciate recs [place] [address], though CXR no active disease -patient w/o diuresis; patient on HD MWF ESRD -on HD MWF -BUN/Cr on admission 05/06 -nephro Dr. Bill following, appreciate recs DM2 -levemir 12 u sq q12h -glocotrol 10 mg PO ACBC -ISS ACHS -hypoglycemic protocol Hypothyroid -on synthroid at home but TSH low on admission -Dr. Davon ralph consult, recs appreciated DVT: eliquis 2.5 mg BID GI: home pepcid 20 mg PO <Miranda Moscoso - Last Filed: 05/05/18 19:41> Objective - Vital Signs/Intake and Output Vital Signs (last 24 hours): Temp Pulse Resp BP Pulse Ox 98.2 F 93 H 16 143/58 L 98 05/05/18 08:00 05/05/18 08:00 05/05/18 08:00 05/05/18 08:00 05/05/18 08:00 Intake and Output: 05/05/18 05/05/18 06:59 18:59 Intake Total 100 Balance 100 - Medications Medications: Current Medications Acetaminophen (Tylenol 325mg Tab) 650 mg PO Q6 PRN PRN Reason: pain+fever Amiodarone HCl (Cordarone) 200 mg PO Q12H [facility] Last Admin: 05/04/18 21:39 Dose: 200 mg Apixaban (Eliquis) 2.5 mg PO BID [facility] Last Admin: 05/04/18 17:55 Dose: 2.5 mg Calcium Acetate (Phoslo) 1,334 mg PO TID [facility] Last Admin: 05/04/18 18:04 Dose: 1,334 mg Epoetin [place] (Procrit) 10,000 unit IV MWF [facility] Last Admin: 05/03/18 15:41 Dose: 10,000 unit Famotidine (Pepcid) 20 mg PO DAILY [facility] Last Admin: 05/04/18 09:03 Dose: 20 mg Glipizide (Glucotrol) 10 mg PO ACBD [facility] Last Admin: 05/05/18 08:19 Dose: 10 mg Meropenem 500 mg/ Sodium (Chloride) 100 mls @ 100 mls/hr IVPB Q12H [facility]; Protocol Last Admin: 05/05/18 01:03 Dose: 100 mls/hr Micafungin Sodium 100 mg/ (Sodium Chloride) 100 mls @ 100 mls/hr IV Q24H [facility]; Protocol Last Admin: 05/04/18 18:59 Dose: 100 mls/hr Insulin Aspart (Novolog) 0 unit SC ACHS [facility]; Protocol Last Admin: 05/05/18 08:08 Dose: Not Given Insulin Aspart (Novolog Mix 70/30 (70/30 Units/Ml)) 20 units SC ACBD [facility] Last Admin: 05/05/18 08:08 Dose: Not Given Insulin Detemir (Levemir) 12 unit SC Q12H [facility] Last Admin: 05/05/18 01:00 Dose: Not Given Ipratropium [place] (Atrovent) 0.5 mg IH RQ6 PRN PRN Reason: Shortness of Breath Last Admin: 05/05/18 07:54 Dose: 0.5 mg Levothyroxine Sodium (Synthroid) 75 mcg PO DAILY@0630 [facility] Last Admin: 05/05/18 06:30 Dose: 75 mcg Methylprednisolone (Solu-Medrol) 40 mg IVP DAILY [facility] Last Admin: 05/04/18 09:03 Dose: 40 mg Promethazine HCl/Dextromethorphan (Phenergan Dm Syrup) 10 ml PO Q6 PRN PRN Reason: Cough Last Admin: 05/05/18 03:56 Dose: 10 ml Tiotropium [place] (Spiriva) 18 mcg INH RQ24 [facility] Last Admin: 05/05/18 07:54 Dose: 18 mcg - Labs Labs: 05/05/18 05:32 05/05/18 05:32 PT 13.8 SECONDS (9.7-12.2) H 05/01/18 19:00 INR 1.3 05/01/18 19:00 APTT 103 SECONDS (21-34) H* D 05/02/18 06:09 Attending/Attestation - Attestation I have personally seen and examined this patient.: Yes I have fully participated in the care of the patient.: Yes I have reviewed all pertinent clinical information, including history, physical exam and plan: Yes Notes (Text): seen and examined . She is sitting on the chair,s/p BM,mild tachy,c/o cough less sob on examination she has rhonchi L>R lung no abdominal tenderness 1.COPD exacerbation 2.Bronchitis 3.MM 4. Paroxysmal Afib,on admission 05/01, was treated by amidarone drip and 200J synchronized cardioversion. Heparin drip DCed Currently NSR. -amidarone 200 mg PO q12h -eliquis 2.5 mg BID 5.ESRD on HD 6.DM 7.Hypothyroidism with low TSH Patient has a hypoglycemic episode on 05/03 night. Night time Levemir and Novolog mis 70/30 was missing doses due to low sugar. Patient also very anxious and not very happy to take needle Discuss with phytopathology teacher about her insulin doses and synthroid .she will discuss with the patient and see her today we will continue antibiotics Merrem and micafungin as per ID
[2018-05-05 05:36] LABS: BASO % 0.1 % (0.0-2.0); HEMOGLOBIN 9.1 g/dL (11.0-16.0); LYMPH % 4.2 % (20.0-40.0); MEAN CELL VOLUME 94.8 fL (81.0-99.0); MEAN CORPUSCULAR HEMOGLOBIN 31.1 pg (27.0-31.0); MEAN CORPUSCULAR HGB CONC 32.8 g/dL (33.0-37.0); MEAN PLATELET VOLUME 11.5 fL (7.2-11.7); MONO # 0.6 K/uL (0.0-0.8); MONO % 2.4 % (0.0-10.0); NEUT % 93.3 % (50.0-75.0); PLATELET COUNT 149 K/uL (130-400); RBC 2.92 Mil/uL (3.80-5.20); RED CELL DISTRIBUTION WIDTH 14.5 % (11.5-14.5); WHITE BLOOD COUNT 24.7 K/uL (4.8-10.8)
[2018-05-05 06:13] LABS: ALB/GLOB RATIO 1.2 (1.0-2.1); ALBUMIN 2.9 g/dL (3.5-5.0); CALCIUM 8.2 mg/dl (8.6-10.4)
[2018-05-05] MEDS: Levothyroxine 75 MCG TAB PO SCH (06:30)
[2018-05-05 06:44] LABS: LYMPHOCYTE 2 % (20-40); MONOCYTE 2 % (0-10); NEUTROPHIL 96 % (50-75); PLATELET ESTIMATE NORMAL (NORMAL); TOTAL CELLS COUNTED 100
[2018-05-05] MEDS: Ipratropium 0.02% Inhal Soln (0.5 mg/2.5 ml) UD IH PRN (07:54)
[2018-05-05] MEDS: Tiotropium 18 mcg Cap For Inhalation INH SCH (07:54)
[2018-05-05] MEDS: (Novolog Mix 70/30) Insulin Aspart/Insulin Aspar 100 units/ml SC SCH ×2 (08:08→16:43)
[2018-05-05] MEDS: (Novolog) Insulin Aspart, Recombinant 100 u/ml 10 ml vial SC SCH ×4 (08:08→21:14)
[2018-05-05] MEDS: MethylPREDNISolone 40 mg Vial IVP SCH (10:02)
--- NOTE | 2018-05-05 13:08 | CP.PCM.PN ---
Subjective - Date & Time of Evaluation Date of Evaluation: 05/05/18 Time of Evaluation: 13:06 - Subjective Subjective: Patient seen and examined Reports cough Objective - Vital Signs/Intake and Output Vital Signs (last 24 hours): Temp Pulse Resp BP Pulse Ox 98.2 F 93 H 16 143/58 L 98 05/05/18 08:00 05/05/18 08:00 05/05/18 08:00 05/05/18 08:00 05/05/18 08:00 Intake and Output: 05/05/18 05/05/18 06:59 18:59 Intake Total 100 Balance 100 - Medications Medications: Current Medications Acetaminophen (Tylenol 325mg Tab) 650 mg PO Q6 PRN PRN Reason: pain+fever Amiodarone HCl (Cordarone) 200 mg PO Q12H [facility] Last Admin: 05/05/18 10:01 Dose: 200 mg Apixaban (Eliquis) 2.5 mg PO BID [facility] Last Admin: 05/05/18 10:01 Dose: 2.5 mg Calcium Acetate (Phoslo) 1,334 mg PO TID [facility] Last Admin: 05/05/18 10:01 Dose: 1,334 mg Epoetin Eddie (Procrit) 10,000 unit IV MWF [facility] Last Admin: 05/03/18 15:41 Dose: 10,000 unit Famotidine (Pepcid) 20 mg PO DAILY [facility] Last Admin: 05/05/18 10:01 Dose: 20 mg Glipizide (Glucotrol) 10 mg PO ACBD [facility] Last Admin: 05/05/18 08:19 Dose: 10 mg Meropenem 500 mg/ Sodium (Chloride) 100 mls @ 100 mls/hr IVPB Q12H [facility]; Protocol Last Admin: 05/05/18 12:02 Dose: 100 mls/hr Micafungin Sodium 100 mg/ (Sodium Chloride) 100 mls @ 100 mls/hr IV Q24H [facility]; Protocol Last Admin: 05/04/18 18:59 Dose: 100 mls/hr Insulin Aspart (Novolog) 0 unit SC [facility]; Protocol Last Admin: 05/05/18 12:07 Dose: 6 units Insulin Aspart (Novolog Mix 70/30 (70/30 Units/Ml)) 20 units SC [facility] Last Admin: 05/05/18 08:08 Dose: Not Given Insulin Detemir (Levemir) 12 unit SC Q12H [facility] Last Admin: 05/05/18 12:08 Dose: 12 units Ipratropium [place] (Atrovent) 0.5 mg IH RQ6 PRN PRN Reason: Shortness of Breath Last Admin: 05/05/18 07:54 Dose: 0.5 mg Levothyroxine Sodium (Synthroid) 75 mcg PO DAILY@0630 [facility] Last Admin: 05/05/18 06:30 Dose: 75 mcg Methylprednisolone (Solu-Medrol) 40 mg IVP DAILY [facility] Last Admin: 05/05/18 10:02 Dose: 40 mg Promethazine HCl/Dextromethorphan (Phenergan Dm Syrup) 10 ml PO Q6 PRN PRN Reason: Cough Last Admin: 05/05/18 03:56 Dose: 10 ml Tiotropium [place] (Spiriva) 18 mcg INH RQ24 [facility] Last Admin: 05/05/18 07:54 Dose: 18 mcg - Labs Labs: 05/05/18 05:32 05/05/18 05:32 PT 13.8 SECONDS (9.7-12.2) H 05/01/18 19:00 INR 1.3 05/01/18 19:00 APTT 103 SECONDS (21-34) H* D 05/02/18 06:09 - Head Exam Head Exam: NORMAL INSPECTION - Eye Exam Eye Exam: Normal appearance - ENT Exam ENT Exam: Mucous Membranes Moist - Respiratory Exam Respiratory Exam: Decreased Breath Sounds - Cardiovascular Exam Cardiovascular Exam: REGULAR RHYTHM - GI/Abdominal Exam GI & Abdominal Exam: Soft, Normal Bowel Sounds - Extremities Exam Extremities Exam: Normal Inspection - Neurological Exam Neurological Exam: Alert, Oriented x3 Assessment and Plan (1) ESRD (end stage renal disease) on dialysis Status: Acute (2) COPD (chronic obstructive pulmonary disease) Status: Acute - Assessment and Plan (Free Text) Plan: Bronchodilators Continue Solu-Medrol Consider adding Brio Ellipta 200/25 mcg 1 puff daily Hemodialysis per schedule DVT/GI prophylaxis
--- NOTE | 2018-05-05 17:08 | CP.PCM.PN ---
Subjective - Date & Time of Evaluation Date of Evaluation: 05/05/18 Time of Evaluation: 09:00 - Subjective Subjective: 83 y/o female, with history of COPD, CHF, ESRD on HD , A-fib, and anemia, was admitted with SOB associated with chills and a productive cough Cough and SOB ppersist despite several days of antibiotics denies fever less cough and less SOB Objective - Vital Signs/Intake and Output Vital Signs (last 24 hours): Temp Pulse Resp BP Pulse Ox 97.4 F L 87 20 126/68 97 05/05/18 14:43 05/05/18 16:00 05/05/18 14:43 05/05/18 14:43 05/05/18 14:43 Intake and Output: 05/05/18 05/05/18 06:59 18:59 Intake Total 100 600 Balance 100 600 - Medications Medications: Current Medications Acetaminophen (Tylenol 325mg Tab) 650 mg PO Q6 PRN PRN Reason: pain+fever Amiodarone HCl (Cordarone) 200 mg PO Q12H [facility] Last Admin: 05/05/18 10:01 Dose: 200 mg Apixaban (Eliquis) 2.5 mg PO BID [facility] Last Admin: 05/05/18 10:01 Dose: 2.5 mg Calcium Acetate (Phoslo) 1,334 mg PO TID [facility] Last Admin: 05/05/18 14:07 Dose: 1,334 mg Epoetin Eddie (Procrit) 10,000 unit IV MWF [facility] Last Admin: 05/03/18 15:41 Dose: 10,000 unit Famotidine (Pepcid) 20 mg PO DAILY [facility] Last Admin: 05/05/18 10:01 Dose: 20 mg Glipizide (Glucotrol) 10 mg PO ACBD [facility] Last Admin: 05/05/18 08:19 Dose: 10 mg Meropenem 500 mg/ Sodium (Chloride) 100 mls @ 100 mls/hr IVPB Q12H [facility]; Protocol Last Admin: 05/05/18 12:02 Dose: 100 mls/hr Micafungin Sodium 100 mg/ (Sodium Chloride) 100 mls @ 100 mls/hr IV Q24H [facility]; Protocol Last Admin: 05/04/18 18:59 Dose: 100 mls/hr Insulin Aspart (Novolog) 0 unit SC ACHS [facility]; Protocol Last Admin: 05/05/18 12:07 Dose: 6 units Insulin Aspart (Novolog Mix 70/30 (70/30 Units/Ml)) 20 units SC ACBD [facility] Last Admin: 05/05/18 08:08 Dose: Not Given Insulin Detemir (Levemir) 12 unit SC Q12H [facility] Last Admin: 05/05/18 12:08 Dose: 12 units Ipratropium [place] (Atrovent) 0.5 mg IH RQ6 PRN PRN Reason: Shortness of Breath Last Admin: 05/05/18 07:54 Dose: 0.5 mg Levothyroxine Sodium (Synthroid) 75 mcg PO DAILY@0630 [facility] Last Admin: 05/05/18 06:30 Dose: 75 mcg Methylprednisolone (Solu-Medrol) 40 mg IVP DAILY [facility] Last Admin: 05/05/18 10:02 Dose: 40 mg Promethazine HCl/Dextromethorphan (Phenergan Dm Syrup) 10 ml PO Q6 PRN PRN Reason: Cough Last Admin: 05/05/18 10:07 Dose: 10 ml Tiotropium [place] (Spiriva) 18 mcg INH RQ24 [facility] Last Admin: 05/05/18 07:54 Dose: 18 mcg - Labs Labs: 05/05/18 05:32 05/05/18 05:32 PT 13.8 SECONDS (9.7-12.2) H 05/01/18 19:00 INR 1.3 05/01/18 19:00 APTT 103 SECONDS (21-34) H* D 05/02/18 06:09 - Constitutional Appears: Non-toxic, Cachectic, Chronically Ill - Head Exam Head Exam: NORMOCEPHALIC - Eye Exam Eye Exam: absent: Scleral icterus - ENT Exam ENT Exam: Mucous Membranes Dry - Neck Exam Neck Exam: absent: Lymphadenopathy - Respiratory Exam Respiratory Exam: Decreased Breath Sounds - Cardiovascular Exam Cardiovascular Exam: REGULAR RHYTHM - GI/Abdominal Exam GI & Abdominal Exam: Distended, Soft - Rectal Exam Rectal Exam: Deferred - Exam Exam: NORMAL INSPECTION - Extremities Exam Extremities Exam: absent: Pedal Edema - Back Exam Back Exam: absent: CVA tenderness (L), CVA tenderness (R) Assessment and Plan (1) COPD exacerbation Status: Acute (2) Multiple myeloma Status: Acute (3) Paroxysmal A-fib Status: Acute (4) Bronchitis Status: Acute (5) CHF exacerbation Status: Acute (6) COPD (chronic obstructive pulmonary disease) Status: Acute (7) ESRD (end stage renal disease) Status: Acute (8) History of atrial fibrillation Status: Acute (9) History of gastroesophageal reflux (GERD) Status: Acute (10) Multiple myeloma Status: Acute - Assessment and Plan (Free Text) Assessment: cont rx as planned
[2018-05-05] MEDS: Micafungin 100 MG in Sodium Chloride 0.9% 100 ML IV SCH (19:41)
[2018-05-06] MEDS: Insulin Detemir 100 units/ml Vial (Levemir) SC SCH ×2 (01:00→12:02)
[2018-05-06] MEDS: Meropenem 500 MG in Sodium Chloride 0.9% 100 ML IVPB SCH ×2 (02:00→14:55)
--- NOTE | 2018-05-06 02:03 | PN ---
DATE: 05/05/2018 SUBJECTIVE: This morning this elderly patient who was originally seen by Dr. Mays had been seen in ICU bed number 3. The patient overall appears vague, tired, she is short of breath and she was admitted towards COPD exacerbation, CHF, hypertension. The patient has been on dialysis for about 1-1/2 years and has a history of multiple myeloma undergoing treatments with Dr. Martinez. There is also history of anemia as a result of all these complications which requires Epogen treatment and some transfusions. The patient has been a diabetic for long amount of time, but is very reluctant to accept multiple insulin injections in the hospital. Today she expressed reluctance to continue insulin at home should there be such a need. The patient again refused to be somewhat short of breath. She is somewhat tired. Appetite is poor. She is complaining of hospital food and is awaiting her brother's visit who possibly could bring her healthy diabetic choice. The patient's chest shows diminished breath sounds and scattered rhonchi. Thyroid examination is normal. Abdomen is soft and nontender. There is no pretibial edema present. LABORATORY DATA: This morning, WBC 11.5, hemoglobin is 9.1, hematocrit is 27.7, platelets are normal 149, potassium 4.4, creatinine 4.2, BUN 79, glucose levels from last time 224 at 9 p.m. last night, 155 this morning and 138 this afternoon. Calcium 8.2, albumin 2.9. The patient still remains on Solu-Medrol 40 mg once a day and regarding her endocrine management, she is on Synthroid 75 mcg once a day as well as glipizide which was increased from 10 mg once a day to 10 mg twice a day. She was also placed on 70/30 NovoLog mixed insulin 20 units b.i.d. 48 hours ago to which she has started to respond. Her recently initiated amiodarone may result in interference with thyroid functions. It could cause both diminished or increased thyroid function in the patient who is receiving . The patient was notified about that I would be communicating this to her primary doctor and Dr. Martinez and . At this moment diabetes treatment will be maintained at the same level as well as Synthroid will be kept at 75 mcg once a day. The patient will be closely monitored with you. Katia Pichardo MD [facility] # [id number]
[2018-05-06] MEDS: Levothyroxine 75 MCG TAB PO SCH (06:03)
[2018-05-06] MEDS: Promethazine DM 12.5 mg-30 mg/10 ml Syrup PO PRN ×2 (06:06→18:29)
[2018-05-06] MEDS: (Novolog) Insulin Aspart, Recombinant 100 u/ml 10 ml vial SC SCH ×4 (08:10→21:10)
[2018-05-06] MEDS: (Novolog Mix 70/30) Insulin Aspart/Insulin Aspar 100 units/ml SC SCH ×2 (08:11→16:48)
[2018-05-06 08:12] LABS: BASO % 0.1 % (0.0-2.0); HEMOGLOBIN 9.7 g/dL (11.0-16.0); LYMPH # 0.9 K/uL (1.0-4.3); LYMPH % 3.5 % (20.0-40.0); MEAN CELL VOLUME 95.6 fL (81.0-99.0); MEAN CORPUSCULAR HEMOGLOBIN 31.3 pg (27.0-31.0); MEAN CORPUSCULAR HGB CONC 32.7 g/dL (33.0-37.0); MEAN PLATELET VOLUME 11.1 fL (7.2-11.7); MONO # 0.7 K/uL (0.0-0.8); MONO % 2.8 % (0.0-10.0); NEUT # 23.3 K/uL (1.8-7.0); NEUT % 93.6 % (50.0-75.0); PLATELET COUNT 203 K/uL (130-400); RED CELL DISTRIBUTION WIDTH 14.7 % (11.5-14.5); WHITE BLOOD COUNT 24.9 K/uL (4.8-10.8)
[2018-05-06 08:32] LABS: ALB/GLOB RATIO 1.2 (1.0-2.1); ALBUMIN 3.2 g/dL (3.5-5.0); CALCIUM 8.6 mg/dl (8.6-10.4)
[2018-05-06 10:01] LABS: LYMPHOCYTE 2 % (20-40); MONOCYTE 1 % (0-10); NEUTROPHIL 97 % (50-75); PLATELET ESTIMATE NORMAL (NORMAL); TOTAL CELLS COUNTED 100
[2018-05-06 10:02] LABS: LARGE PLATELETS PRESENT
[2018-05-06] MEDS: MethylPREDNISolone 40 mg Vial IVP SCH (10:18)
[2018-05-06] MEDS: Tiotropium 18 mcg Cap For Inhalation INH SCH (10:52)
--- NOTE | 2018-05-06 11:26 | CP.PCM.PN ---
Subjective - Date & Time of Evaluation Date of Evaluation: 05/06/18 Time of Evaluation: 11:23 - Subjective Subjective: Still very anxious less cough still with leukocytosis for dialysis now tachy- 120s Objective - Vital Signs/Intake and Output Vital Signs (last 24 hours): Temp Pulse Resp BP Pulse Ox 98.1 F 89 20 126/70 97 05/06/18 07:00 05/06/18 07:30 05/06/18 07:00 05/06/18 07:00 05/06/18 07:00 Intake and Output: 05/06/18 05/06/18 06:59 18:59 Intake Total 580 Balance 580 - Medications Medications: Current Medications Acetaminophen (Tylenol 325mg Tab) 650 mg PO Q6 PRN PRN Reason: pain+fever Amiodarone HCl (Cordarone) 200 mg PO Q12H [facility] Last Admin: 05/06/18 10:17 Dose: 200 mg Apixaban (Eliquis) 2.5 mg PO BID [facility] Last Admin: 05/06/18 10:17 Dose: 2.5 mg Calcium Acetate (Phoslo) 1,334 mg PO TID [facility] Last Admin: 05/06/18 10:17 Dose: 1,334 mg Epoetin Eddie (Procrit) 10,000 unit IV MWF [facility] Last Admin: 05/03/18 15:41 Dose: 10,000 unit Famotidine (Pepcid) 20 mg PO DAILY [facility] Last Admin: 05/06/18 10:17 Dose: 20 mg Glipizide (Glucotrol) 10 mg PO ACBD [facility] Last Admin: 05/06/18 08:10 Dose: 10 mg Meropenem 500 mg/ Sodium (Chloride) 100 mls @ 100 mls/hr IVPB Q12H [facility]; Protocol Last Admin: 05/06/18 02:00 Dose: 100 mls/hr Micafungin Sodium 100 mg/ (Sodium Chloride) 100 mls @ 100 mls/hr IV Q24H [facility]; Protocol Last Admin: 05/05/18 19:41 Dose: 100 mls/hr Insulin Aspart (Novolog) 0 unit SC ACHS [facility]; Protocol Last Admin: 05/06/18 08:10 Dose: 3 units Insulin Aspart (Novolog Mix 70/30 (70/30 Units/Ml)) 20 units SC ACBD [facility] Last Admin: 05/06/18 08:11 Dose: 20 units Insulin Detemir (Levemir) 12 unit SC Q12H [facility] Last Admin: 05/06/18 01:00 Dose: Not Given Ipratropium [place] (Atrovent) 0.5 mg IH RQ6 PRN PRN Reason: Shortness of Breath Last Admin: 05/05/18 07:54 Dose: 0.5 mg Levothyroxine Sodium (Synthroid) 75 mcg PO DAILY@0630 [facility] Last Admin: 05/06/18 06:03 Dose: 75 mcg Methylprednisolone (Solu-Medrol) 40 mg IVP DAILY [facility] Last Admin: 05/06/18 10:18 Dose: 40 mg Promethazine HCl/Dextromethorphan (Phenergan Dm Syrup) 10 ml PO Q6 PRN PRN Reason: Cough Last Admin: 05/06/18 06:06 Dose: 10 ml Tiotropium [place] (Spiriva) 18 mcg INH RQ24 [facility] Last Admin: 05/06/18 10:52 Dose: 18 mcg - Labs Labs: 05/06/18 08:06 05/06/18 08:06 PT 13.8 SECONDS (9.7-12.2) H 05/01/18 19:00 INR 1.3 05/01/18 19:00 APTT 103 SECONDS (21-34) H* D 05/02/18 06:09 - Constitutional Appears: No Acute Distress, Agitated, Chronically Ill - Head Exam Head Exam: ATRAUMATIC, NORMAL INSPECTION - Eye Exam Eye Exam: EOMI, Normal appearance - Neck Exam Neck Exam: Normal Inspection. absent: Tenderness - Respiratory Exam Respiratory Exam: Clear to Ausculation Bilateral, NORMAL BREATHING PATTERN - Cardiovascular Exam Cardiovascular Exam: Tachycardia, +S1 - GI/Abdominal Exam GI & Abdominal Exam: Soft. absent: Tenderness - Extremities Exam Extremities Exam: Tenderness. absent: Normal Inspection - Neurological Exam Neurological Exam: Awake, CN II-XII Intact - Skin Skin Exam: Dry, Warm Assessment and Plan (1) Fluid overload Status: Acute (2) Multiple myeloma Status: Acute (3) ESRD (end stage renal disease) Status: Acute (4) Paroxysmal A-fib Status: Acute (5) COPD exacerbation Status: Acute - Assessment and Plan (Free Text) Plan: small dose b-blockers dialysis now same pulmonary meds
[2018-05-06] MEDS ORDERED: Epoetin Alfa 10,000 unit/ml Dialysis IV SCH (15:45)
--- NOTE | 2018-05-06 15:52 | CP.PCM.PN ---
Subjective - Date & Time of Evaluation Date of Evaluation: 05/06/18 Time of Evaluation: 09:00 - Subjective Subjective: afeb alert no new cultures seen and examined cultures reviewed orders signed Objective - Vital Signs/Intake and Output Vital Signs (last 24 hours): Temp Pulse Resp BP Pulse Ox 96.9 F L 77 15 109/50 L 98 05/06/18 13:40 05/06/18 13:40 05/06/18 13:40 05/06/18 14:40 05/06/18 13:40 Intake and Output: 05/06/18 05/06/18 06:59 18:59 Intake Total 580 Balance 580 - Medications Medications: Current Medications Acetaminophen (Tylenol 325mg Tab) 650 mg PO Q6 PRN PRN Reason: pain+fever Amiodarone HCl (Cordarone) 200 mg PO Q12H [facility] Last Admin: 05/06/18 10:17 Dose: 200 mg Apixaban (Eliquis) 2.5 mg PO BID [facility] Last Admin: 05/06/18 10:17 Dose: 2.5 mg Calcium Acetate (Phoslo) 1,334 mg PO TID [facility] Last Admin: 05/06/18 14:55 Dose: Not Given Epoetin Eddie (Procrit) 10,000 unit IV MWF [facility] Famotidine (Pepcid) 20 mg PO DAILY [facility] Last Admin: 05/06/18 10:17 Dose: 20 mg Glipizide (Glucotrol) 10 mg PO ACBD [facility] Last Admin: 05/06/18 08:10 Dose: 10 mg Meropenem 500 mg/ Sodium (Chloride) 100 mls @ 100 mls/hr IVPB Q12H [facility]S [facility]; Protocol Last Admin: 05/06/18 14:55 Dose: Not Given Insulin Aspart (Novolog) 0 unit SC ACHS [facility]S [facility]; Protocol Last Admin: 05/06/18 12:02 Dose: Not Given Insulin Aspart (Novolog Mix 70/30 (70/30 Units/Ml)) 20 units SC ACBD [facility]S [facility] Last Admin: 05/06/18 08:11 Dose: 20 units Insulin Detemir (Levemir) 12 unit SC Q12H [facility]S [facility] Last Admin: 05/06/18 12:02 Dose: Not Given Ipratropium [place] (Atrovent) 0.5 mg IH RQ6 PRN PRN Reason: Shortness of Breath Last Admin: 05/05/18 07:54 Dose: 0.5 mg Levothyroxine Sodium (Synthroid) 75 mcg PO DAILY@0630 [facility]S [facility] Last Admin: 05/06/18 06:03 Dose: 75 mcg Methylprednisolone (Solu-Medrol) 40 mg IVP DAILY [facility]S [facility] Last Admin: 05/06/18 10:18 Dose: 40 mg Metoprolol Tartrate (Lopressor) 25 mg PO BID [facility] Last Admin: 05/06/18 12:13 Dose: 25 mg Promethazine HCl/Dextromethorphan (Phenergan Dm Syrup) 10 ml PO Q6 PRN PRN Reason: Cough Last Admin: 05/06/18 06:06 Dose: 10 ml Tiotropium [place] (Spiriva) 18 mcg INH RQ24 [facility]S [facility] Last Admin: 05/06/18 10:52 Dose: 18 mcg - Labs Labs: 05/06/18 08:06 05/06/18 08:06 PT 13.8 SECONDS (9.7-12.2) H 05/01/18 19:00 INR 1.3 05/01/18 19:00 APTT 103 SECONDS (21-34) H* D 05/02/18 06:09 - Constitutional Appears: Non-toxic, Chronically Ill - Head Exam Head Exam: NORMOCEPHALIC - Eye Exam Eye Exam: absent: Scleral icterus - ENT Exam ENT Exam: Mucous Membranes Dry - Neck Exam Neck Exam: absent: Lymphadenopathy - Respiratory Exam Respiratory Exam: Decreased Breath Sounds - Cardiovascular Exam Cardiovascular Exam: REGULAR RHYTHM Assessment and Plan (1) COPD exacerbation Status: Acute (2) Multiple myeloma Status: Acute (3) Paroxysmal A-fib Status: Acute (4) Bronchitis Status: Acute (5) CHF exacerbation Status: Acute (6) COPD (chronic obstructive pulmonary disease) Status: Acute (7) ESRD (end stage renal disease) Status: Acute (8) History of atrial fibrillation Status: Acute (9) History of gastroesophageal reflux (GERD) Status: Acute (10) Multiple myeloma Status: Acute
[2018-05-06] MEDS: EPOETIN ALFA 10,000 UNIT/ML ML IV SCH (16:06)
--- NOTE | 2018-05-06 18:56 | CP.PCM.DIS ---
Provider - Provider Date of Admission: 05/01/18 15:10 Attending physician: Miranda Moscoso MD Consults: 05/01/18 16:02 Cardiology Consult Routine Comment: Consulting Provider: Marc Gold Consulting Physician: Marc Gold Reason for Consult: SVT? Hx of Afib 05/01/18 16:04 Pulmonology Consult Routine Comment: Consulting Provider: Lillie Mai Consulting Physician: Lillie Mai Reason for Consult: copd 05/01/18 16:12 Critical Care Consult Routine Comment: Consulting Provider: Pepe Kessler Consulting Physician: Pepe Kessler Reason for Consult: SVT new onset 05/01/18 16:16 Nephrology Consult Routine Comment: Consulting Provider: Rolando Bill Consulting Physician: Rolando Bill Reason for Consult: ESRD on HD Mwf 05/01/18 18:13 Physician Consult Routine Comment: Consulting Provider: Liv Mays Consulting Physician: Liv Mays Reason for Consult: Low TSH on synthroid/afib with rapid rate 05/03/18 09:34 Physician Consult Routine Comment: Consulting Provider: Noam Luong Consulting Physician: Noam Luong Reason for Consult: leukocytosis/sepsis/bandemia 05/03/18 12:26 Physician Consult Routine Comment: Consulting Provider: Kathleen Martinez Consulting Physician: Kathleen Martinez Reason for Consult: MM 05/05/18 08:50 Endocrinology Consult Routine Comment: Consulting Provider: Katia Pichardo Consulting Physician: Katia Pichardo Reason for Consult: Elevated blood sugar Time Spent in preparation of Discharge (in minutes): 45 Hospital Course - Lab Results Lab Results: Micro Results 05/05/18 15:01 Nose MRSA Culture - Final MRSA NOT DETECTED 05/01/18 13:46 Blood Blood Culture - Final NO GROWTH AFTER 5 DAYS 05/01/18 13:46 Blood Gram Stain - Final TEST NOT PERFORMED 05/01/18 12:47 Blood Blood Culture - Final NO GROWTH AFTER 5 DAYS 05/01/18 12:47 Blood Gram Stain - Final TEST NOT PERFORMED 05/03/18 11:23 Blood-Venous Blood Culture - Preliminary NO GROWTH AFTER 3 DAYS 05/03/18 11:23 Blood-Venous Blood Culture - Preliminary NO GROWTH AFTER 3 DAYS 05/02/18 01:34 Naris MRSA Culture (Admit) - Final MRSA NOT DETECTED Most Recent Lab Values WBC 24.9 K/uL (4.8-10.8) H 05/06/18 08:06 RBC 3.10 Mil/uL (3.80-5.20) L 05/06/18 08:06 Hgb 9.7 g/dL (11.0-16.0) L 05/06/18 08:06 Hct 29.6 % (34.0-47.0) L 05/06/18 08:06 MCV 95.6 fL (81.0-99.0) 05/06/18 08:06 MCH 31.3 pg (27.0-31.0) H 05/06/18 08:06 MCHC 32.7 g/dL (33.0-37.0) L 05/06/18 08:06 RDW 14.7 % (11.5-14.5) H 05/06/18 08:06 Plt Count 203 K/uL (130-400) 05/06/18 08:06 MPV 11.1 fL (7.2-11.7) 05/06/18 08:06 Neut % (Auto) 93.6 % (50.0-75.0) H 05/06/18 08:06 Lymph % (Auto) 3.5 % (20.0-40.0) L 05/06/18 08:06 [place] % (Auto) 2.8 % (0.0-10.0) 05/06/18 08:06 Eos % (Auto) 0.0 % (0.0-4.0) 05/06/18 08:06 Baso % (Auto) 0.1 % (0.0-2.0) 05/06/18 08:06 Neut # (Auto) 23.3 K/uL (1.8-7.0) H 05/06/18 08:06 Lymph # (Auto) 0.9 K/uL (1.0-4.3) L 05/06/18 08:06 [place] # (Auto) 0.7 K/uL (0.0-0.8) 05/06/18 08:06 Eos # (Auto) 0.0 K/uL (0.0-0.7) 05/06/18 08:06 Baso # (Auto) 0.0 K/uL (0.0-0.2) 05/06/18 08:06 Neutrophils % (Manual) 97 % (50-75) H 05/06/18 08:06 Band Neutrophils % 7 % (0-2) H 05/04/18 05:40 Lymphocytes % (Manual) 2 % (20-40) L 05/06/18 08:06 Reactive Lymphs % 1 % (0-0) H 05/03/18 06:24 Monocytes % (Manual) 1 % (0-10) 05/06/18 08:06 Basophils % (Manual) 1 % (0-2) 05/02/18 06:08 Toxic Granulation Present 05/03/18 06:24 Platelet Estimate Normal (NORMAL) 05/06/18 08:06 Large Platelets Present 05/06/18 08:06 RBC Morphology Normal 05/06/18 08:06 Hypochromasia (manual) Slight 05/02/18 06:08 Poikilocytosis (manual Slight 05/02/18 06:08 Anisocytosis (manual) Slight 05/04/18 05:40 Tear Drop Cells Slight 05/02/18 06:08 Ovalocytes Slight 05/02/18 06:08 [place] Cells Slight 05/03/18 06:24 PT 13.8 SECONDS (9.7-12.2) H 05/01/18 19:00 INR 1.3 05/01/18 19:00 APTT 103 SECONDS (21-34) H* D 05/02/18 06:09 pO2 58 mm/Hg (30-55) H 05/01/18 14:53 VBG pH 7.37 (7.32-7.43) 05/01/18 14:53 VBG pCO2 45 mmHg (40-60) 05/01/18 14:53 VBG HCO3 24.9 mmol/L 05/01/18 14:53 VBG Total CO2 27.4 mmol/L (22-28) 05/01/18 14:53 VBG O2 Sat (Calc) 89.9 % (40-65) H 05/01/18 14:53 VBG Base Excess 0.3 mmol/L (0.0-2.0) 05/01/18 14:53 VBG Potassium 3.0 mmol/L (3.6-5.2) L 05/01/18 14:53 Sodium 139.0 mmol/l (132-148) 05/01/18 14:53 Chloride 102.0 mmol/L (98-107) 05/01/18 14:53 Glucose 93 mg/dl (65-105) 05/01/18 14:53 Lactate 3.4 mmol/L (0.7-2.1) H 05/01/18 14:53 Sodium 137 mmol/L (132-148) 05/06/18 08:06 Potassium 5.1 mmol/L (3.6-5.2) 05/06/18 08:06 Chloride 101 mmol/L (98-107) 05/06/18 08:06 Carbon Dioxide 24 mmol/L (22-30) 05/06/18 08:06 Anion Gap 18 (10-20) 05/06/18 08:06 BUN 110 mg/dL (7-17) H* D 05/06/18 08:06 Creatinine 6.0 mg/dL (0.7-1.2) H 05/06/18 08:06 Est GFR ( Amer) 8 05/06/18 08:06 Est GFR (Non-Af Amer) 7 05/06/18 08:06 POC Glucose (mg/dL) 91 mg/dL (65-110) 05/06/18 15:52 Random Glucose 236 mg/dL (65-105) H D 05/06/18 08:06 Lactic Acid 2.2 mmol/L (0.7-2.1) H 05/03/18 06:21 Calcium 8.6 mg/dl (8.6-10.4) 05/06/18 08:06 Phosphorus 5.8 mg/dL (2.5-4.5) H 05/06/18 08:06 Magnesium 2.2 mg/dL (1.6-2.3) 05/06/18 08:06 % Saturation 28 (20-55) 05/02/18 11:53 Ferritin > 5000.0 ng/mL 05/02/18 11:53 Total Bilirubin 0.4 mg/dL (0.2-1.3) 05/06/18 08:06 AST 12 U/L (14-36) L 05/06/18 08:06 ALT 25 U/L (9-52) 05/06/18 08:06 Alkaline Phosphatase 70 U/L (38-126) 05/06/18 08:06 Lactate Dehydrogenase 588 U/L (313-618) 05/04/18 05:40 Troponin I 0.1090 ng/mL (0.00-0.120) 05/01/18 12:54 NT-Pro-B Natriuret Pep 29943 pg/mL (0-900) H 05/01/18 12:54 Total Protein 5.8 g/dL (6.3-8.3) L 05/06/18 08:06 Albumin 3.2 g/dL (3.5-5.0) L 05/06/18 08:06 Globulin 2.6 gm/dL (2.2-3.9) 05/06/18 08:06 Albumin/Globulin Ratio 1.2 (1.0-2.1) 05/06/18 08:06 Procalcitonin 1.42 NG/ML (0.19-0.49) H 05/03/18 11:23 Free T4 2.18 ng/dL (0.78-2.19) 05/03/18 06:21 Total T3 0.763 nmol/L (1.49-2.60) L 05/02/18 11:53 TSH 3rd Generation < 0.02 mIU/L (0.46-4.68) L 05/03/18 06:21 Venous Blood Potassium 3.0 mmol/L (3.6-5.2) L 05/01/18 14:53 Random Vancomycin 26.2 ug/mL 05/04/18 05:40 Heparin-induced Plt Ab Negative (Negative) 05/02/18 11:53 Hep Bs Antigen Negative (NEGATIVE) 05/03/18 06:21 Influenza Typ A,B (EIA) Negative for flu a/b (NEGATIVE) 05/01/18 12:54 - Hospital Course Hospital Course: On admission: HPI: 83 y/o female with PMHx of COPD, CHF, ESRD on HD MWF, DM, Afib, anemia, MM, and hypothyroidism presents to the ED with SOB x 3 days. SOB occurs both on exertion and at rest. Patient was in her heme onc Dr. Martinez's office today and was sent to the ED because the RN there said she did not look well. Patient states she is not taking medications for SOB. She finished medrol dose pack and avelox givein on past admission as prescribed. Of note patient was hospitalized on 04/14/18-04/19/18 on this service for COPD exacerbation. She was d/prasanna with medrol dose pack and avelox. Denies chest pain, palpitations, nausea, vomiting, diarrhea. Endorses appetite loss. Patient's past EMR records said she has Afib but patient and patient's son denies. Patient never on AC. After patient given duonebs in the ED patient went into SVT. Dr. Gold cardio and Dr. Kessler critical care both consulted. adenosine 6 mg and adenosine 12 mg gi mary 15 mins apart. Pending further recommendations from specialists. On discharge: Patient was admitted on 05/01 and discharged to rehab on 05/07. Patient was in the ICU 05/01 to 05/03. Then telemetry status on 05/03 until discharge on 05/07. Patient was in the ICU initially because her heart rhythm turned into SVT during the time in the emergency room when she was formerly admitted for possible COPD/PNA. Patient was converted back into SVT and received appropriate treatment in the ICU. After that, patient given medications to help her shortness of breath and respiratory symptoms 2/2 COPD. Patient also had her routine dialysis sessions MWF during her time in the hospital. Due to patient's incidence of SVT, she is to be on amiodarone for a total of one month and taper down as the instructions read below. That is important to avoid pulmonary toxicity, which is something that was stressed during discharge instructions. Patient Instructions: You are to be discharged to subacute rehabilitation. 1) Please follow up with your primary care physician 7-10 days after leaving rehabilitation. 2) You had an irregular heart beat in the hospital which resolved with medications. You will still need to see a lime plant operator. Dr. Gold. Please give a call to the clinic at [phone] [address] [facility] [address] 3) Please attend your regular dialysis sessions Sunday, Sunday and Sunday which is offered in your rehabilitation facility 4) You are to take the following medications: -mererem IV x 9 days -amiodarone 200 mg twice a day for 14 days, then 200 mg once a day for 7 days -phos lo twice a day 667 mg -albuterol ipratropium inhaler every 6 hours for 2 weeks then twice a day -famotidine 20 mg by mouth daily -eliquis 2.5 mg twice a day -glipizide 10 mg by mouth daily -synthroid 75 mcg daily -breo ellipta one puff once a day -prednisone 10 mg oral pills. Take 4 pills for 5 days, 3 pills for the second 5 days, 2 pills for the third 5 days, and 1 pill for the final 5 days --40 mg x 5 days: 05/08 to 05/12 --30 mg x 5 days: 05/13-05/17 --20 mg x 5 days: 05/18-05/22 --10 mg x 5 days: 05/23-05/27 Patient agrees to the above. Above is a summary of hospital events. Please see full medical record for details. Discharge Exam - Head Exam Head Exam: ATRAUMATIC, NORMAL INSPECTION - Eye Exam Eye Exam: EOMI, Normal appearance - Respiratory Exam Respiratory Exam: Clear to PA & Lateral, NORMAL BREATHING PATTERN, UNREMARKABLE - Cardiovascular Exam Cardiovascular Exam: REGULAR RHYTHM - GI/Abdominal Exam GI & Abdominal Exam: Normal Bowel Sounds, Unremarkable - Extremities Exam Extremities exam: normal inspection - Neurological Exam Neurological exam: Alert, Oriented x3 - Psychiatric Exam Psychiatric exam: Normal Affect, Normal Mood - Skin Skin Exam: Dry, Intact, Normal Color, Warm Discharge Plan - Discharge Medications Prescriptions: Albuterol/Ipratropium [Duoneb 3 mg/0.5 mg (3 ml) UD] 3 ml IH Q6H 14 Days #30 neb Budesonide [Pulmicort] 1 mg IH BID #60 ampul.neb - Follow Up Plan Condition: SERIOUS Disposition: HOME/ ROUTINE Instructions: Atrial Fibrillation, Exacerbation of COPD, Medicines for Atrial Fibrillation, Supraventricular Tachycardia (SVT), Amiodarone Additional Instructions: You are to be discharged to subacute rehabilitation. 1) Please follow up with your primary care physician 7-10 days after leaving rehabilitation. 2) You had an irregular heart beat in the hospital which resolved with med ications. You will still need to see a lime plant operator. Dr. Gold. Please give a call to the clinic at [phone] [address] [facility] [address] 3) Please attend your regular dialysis sessions Sunday, Sunday and Sunday which is offered in your rehabilitation facility 4) You are to take the following medications: -merropenem 500mg IV x 9 days -amiodarone 200 mg twice a day for 14 days, then 200 mg once a day for 7 days -phos lo twice a day 667 mg -albuterol ipratropium inhaler every 6 hours for 2 weeks then twice a day -famotidine 20 mg by mouth daily -eliquis 2.5 mg twice a day -glipizide 10 mg by mouth daily -synthroid 75 mcg daily -breo ellipta one puff once a day -prednisone 10 mg oral pills. Take 4 pills for 5 days, 3 pills for the second 5 days, 2 pills for the third 5 days, and 1 pill for the final 5 days --40 mg x 5 days: 05/08 to 05/12 --30 mg x 5 days: 05/13-05/17 --20 mg x 5 days: 05/18-05/22 --10 mg x 5 days: 05/23-05/27
--- NOTE | 2018-05-06 18:59 | CP.PCM.PN ---
Subjective - Date & Time of Evaluation Date of Evaluation: 05/06/18 Time of Evaluation: 18:57 - Subjective Subjective: Progress Note for Dr. Sheets Patient seen and examined at bedside w/ brother. She endorses improvement of sx - cough, SOB. No chest pain or palp. Pt was emotional when she found out the news that we are to send her to [facility], not home. Pt's brother tried to console her at bedside. Objective - Vital Signs/Intake and Output Vital Signs (last 24 hours): Temp Pulse Resp BP Pulse Ox 98.4 F 67 16 112/52 L 96 05/06/18 17:10 05/06/18 17:10 05/06/18 17:10 05/06/18 18:17 05/06/18 17:10 Intake and Output: 05/06/18 05/06/18 06:59 18:59 Intake Total 580 Balance 580 - Medications Medications: Current Medications Acetaminophen (Tylenol 325mg Tab) 650 mg PO Q6 PRN PRN Reason: pain+fever Last Admin: 05/06/18 18:23 Dose: 650 mg Amiodarone HCl (Cordarone) 200 mg PO Q12H [facility] Last Admin: 05/06/18 10:17 Dose: 200 mg Apixaban (Eliquis) 2.5 mg PO BID [facility] Last Admin: 05/06/18 18:17 Dose: 2.5 mg Calcium Acetate (Phoslo) 1,334 mg PO TID [facility] Last Admin: 05/06/18 18:17 Dose: 1,334 mg Epoetin Eddie (Procrit) 10,000 unit IV MWF [facility] Last Admin: 05/06/18 16:07 Dose: 10,000 unit Famotidine (Pepcid) 20 mg PO DAILY [facility] Last Admin: 05/06/18 10:17 Dose: 20 mg Glipizide (Glucotrol) 10 mg PO ACBD [facility] Last Admin: 05/06/18 16:47 Dose: Not Given Meropenem 500 mg/ Sodium (Chloride) 100 mls @ 100 mls/hr IVPB Q12H [facility]; Protocol Last Admin: 05/06/18 14:55 Dose: Not Given Insulin Aspart (Novolog) 0 unit SC ACHS [facility]; Protocol Last Admin: 05/06/18 16:47 Dose: Not Given Insulin Aspart (Novolog Mix 70/30 (70/30 Units/Ml)) 20 units SC ACBD [facility] Last Admin: 05/06/18 16:48 Dose: Not Given Insulin Detemir (Levemir) 12 unit SC Q12H [facility] Last Admin: 05/06/18 12:02 Dose: Not Given Ipratropium [place] (Atrovent) 0.5 mg IH RQ6 PRN PRN Reason: Shortness of Breath Last Admin: 05/05/18 07:54 Dose: 0.5 mg Levothyroxine Sodium (Synthroid) 75 mcg PO DAILY@0630 [facility] Last Admin: 05/06/18 06:03 Dose: 75 mcg Methylprednisolone (Solu-Medrol) 40 mg IVP DAILY [facility] Last Admin: 05/06/18 10:18 Dose: 40 mg Metoprolol Tartrate (Lopressor) 25 mg PO BID [facility] Last Admin: 05/06/18 18:17 Dose: 25 mg Promethazine HCl/Dextromethorphan (Phenergan Dm Syrup) 10 ml PO Q6 PRN PRN Reason: Cough Last Admin: 05/06/18 18:29 Dose: 10 ml Tiotropium [place] (Spiriva) 18 mcg INH RQ24 [facility] Last Admin: 05/06/18 10:52 Dose: 18 mcg - Labs Labs: 05/06/18 08:06 05/06/18 08:06 PT 13.8 SECONDS (9.7-12.2) H 05/01/18 19:00 INR 1.3 05/01/18 19:00 APTT 103 SECONDS (21-34) H* D 05/02/18 06:09 - Constitutional Appears: Non-toxic - Head Exam Head Exam: NORMAL INSPECTION, NORMOCEPHALIC - Eye Exam Eye Exam: EOMI, Normal appearance - Neck Exam Neck Exam: Normal Inspection - Respiratory Exam Respiratory Exam: Clear to Ausculation Bilateral, NORMAL BREATHING PATTERN - Cardiovascular Exam Cardiovascular Exam: REGULAR RHYTHM - GI/Abdominal Exam GI & Abdominal Exam: Soft, Normal Bowel Sounds - Extremities Exam Extremities Exam: Normal Inspection. absent: Calf Tenderness - Neurological Exam Neurological Exam: Alert, Awake, Oriented x3 - Psychiatric Exam Psychiatric exam: Agitated (when she found out about d/c to rehab she got agitated) - Skin Skin Exam: Dry, Intact, Normal Color, Warm Assessment and Plan - Assessment and Plan (Free Text) Assessment: 83 y/o f with PMHx of COPD, CHF, ESRD on HD MWF, DM, Afib, anemia, MM and hypothyroidism presented to the ED w/ SOB x 3 days on 05/01. She was transferred to the ICU directly from the ED to manage her new onset SVT. New onset SVT - resolved -When patient transferred to ED on admission 05/01, was treated by amidarone drip and 200J synchronized cardioversion. Heparin drip DCed Currently NSR. -amidarone 200 mg PO q12h -eliquis 2.5 mg BID -f/u heparin ab panel -cardiology Dr. Gold following, appreciate recs --recs: d/c with amiodarone 200 mg BID for 2 weeks, then amidarone 200 mg daily for 1 week (to avoid pulm toxicity side effects) Acute Leukocytosis -WBC 32.7 from 9 05/02 to 05/03, and bands 17% --> 25.1 on 05/04 -Merrem started 05/03. D/c 05/13 -Dr. Luong, ID, on the case. Recs appreciated. -random vanc wnl 05/04 COPD - stable -CXR w/o active disease and CT chest w/ possible COPD, no signs of PNA -spiriva daily -solumedrol 40 mg IV daily -atrovent PRN -maintain spo2>92%, currently on NC -pulm Dr. Kessler following, appreciate recs [place] [address] though CXR no active disease -patient w/o diuresis; patient on HD MWF ESRD -on HD MWF -BUN/Cr on admission 05/06 -nephro Dr. Bill following, appreciate recs DM2 -levemir 12 u sq q12h -glocotrol 10 mg PO ACBC -ISS ACHS -hypoglycemic protocol Hypothyroid -on synthroid at home but TSH low on admission -Dr. Davon ralph consult, recs appreciated DVT: eliquis 2.5 mg BID GI: home pepcid 20 mg PO dispo: d/c tomorrow to rehab if patient continues to do well
--- NOTE | 2018-05-06 19:10 | CP.PCM.PN ---
Subjective - Date & Time of Evaluation Date of Evaluation: 05/06/18 Time of Evaluation: 19:07 - Subjective Subjective: Pt is seen and examined No events overnight Objective - Vital Signs/Intake and Output Vital Signs (last 24 hours): Temp Pulse Resp BP Pulse Ox 98.4 F 79 16 112/52 L 96 05/06/18 17:10 05/06/18 18:00 05/06/18 17:10 05/06/18 18:17 05/06/18 17:10 - Medications Medications: Current Medications Acetaminophen (Tylenol 325mg Tab) 650 mg PO Q6 PRN PRN Reason: pain+fever Last Admin: 05/06/18 18:23 Dose: 650 mg Amiodarone HCl (Cordarone) 200 mg PO Q12H [facility] Last Admin: 05/06/18 10:17 Dose: 200 mg Apixaban (Eliquis) 2.5 mg PO BID [facility] Last Admin: 05/06/18 18:17 Dose: 2.5 mg Calcium Acetate (Phoslo) 1,334 mg PO TID [facility] Last Admin: 05/06/18 18:17 Dose: 1,334 mg Epoetin Eddie (Procrit) 10,000 unit IV MWF [facility] Last Admin: 05/06/18 16:07 Dose: 10,000 unit Famotidine (Pepcid) 20 mg PO DAILY [facility] Last Admin: 05/06/18 10:17 Dose: 20 mg Glipizide (Glucotrol) 10 mg PO ACBD [facility] Last Admin: 05/06/18 16:47 Dose: Not Given Meropenem 500 mg/ Sodium (Chloride) 100 mls @ 100 mls/hr IVPB Q12H [facility]; P rotocol Last Admin: 05/06/18 14:55 Dose: Not Given Insulin Aspart (Novolog) 0 unit SC ACHS [facility]; Protocol Last Admin: 05/06/18 16:47 Dose: Not Given Insulin Aspart (Novolog Mix 70/30 (70/30 Units/Ml)) 20 units SC ACBD [facility] Last Admin: 05/06/18 16:48 Dose: Not Given Insulin Detemir (Levemir) 12 unit SC Q12H [facility] Last Admin: 05/06/18 12:02 Dose: Not Given Ipratropium [place] (Atrovent) 0.5 mg IH RQ6 PRN PRN Reason: Shortness of Breath Last Admin: 05/05/18 07:54 Dose: 0.5 mg Levothyroxine Sodium (Synthroid) 75 mcg PO DAILY@0630 [facility] Last Admin: 05/06/18 06:03 Dose: 75 mcg Methylprednisolone (Solu-Medrol) 40 mg IVP DAILY [facility] Last Admin: 05/06/18 10:18 Dose: 40 mg Metoprolol Tartrate (Lopressor) 25 mg PO BID [facility] Last Admin: 05/06/18 18:17 Dose: 25 mg Promethazine HCl/Dextromethorphan (Phenergan Dm Syrup) 10 ml PO Q6 PRN PRN Reason: Cough Last Admin: 05/06/18 18:29 Dose: 10 ml Tiotropium [place] (Spiriva) 18 mcg INH RQ24 [facility] Last Admin: 05/06/18 10:52 Dose: 18 mcg - Labs Labs: 05/06/18 08:06 05/06/18 08:06 PT 13.8 SECONDS (9.7-12.2) H 05/01/18 19:00 INR 1.3 05/01/18 19:00 APTT 103 SECONDS (21-34) H* D 05/02/18 06:09 - Head Exam Head Exam: NORMAL INSPECTION - Eye Exam Eye Exam: Normal appearance - ENT Exam ENT Exam: Mucous Membranes Moist - Respiratory Exam Respiratory Exam: Clear to Ausculation Bilateral - Cardiovascular Exam Cardiovascular Exam: REGULAR RHYTHM, +S1, +S2 - GI/Abdominal Exam GI & Abdominal Exam: Soft, Normal Bowel Sounds - Extremities Exam Extremities Exam: Normal Inspection - Neurological Exam Neurological Exam: Alert, Oriented x3 Assessment and Plan (1) ESRD (end stage renal disease) on dialysis Status: Acute (2) COPD (chronic obstructive pulmonary disease) Status: Acute - Assessment and Plan (Free Text) Plan: Continue Abx Breo Ellipta 200/25 mcg 1 P daily Spiriva 18 mcg 2 P daily Bronchodilators Promethazine DVT/GI prophalaxis
[2018-05-07] MEDS: Meropenem 500 MG in Sodium Chloride 0.9% 100 ML IVPB SCH ×2 (00:43→13:12)
[2018-05-07] MEDS: Insulin Detemir 100 units/ml Vial (Levemir) SC SCH ×2 (00:48→13:08)
[2018-05-07] MEDS: Levothyroxine 75 MCG TAB PO SCH (06:57)
[2018-05-07] MEDS ORDERED: Fluticasone-Vilanterol 200/25mcg Diskus INH SCH (08:00)
[2018-05-07] MEDS: Tiotropium 18 mcg Cap For Inhalation INH SCH (08:12)
[2018-05-07] MEDS: (Novolog Mix 70/30) Insulin Aspart/Insulin Aspar 100 units/ml SC SCH (08:18)
[2018-05-07] MEDS: (Novolog) Insulin Aspart, Recombinant 100 u/ml 10 ml vial SC SCH ×2 (08:18→13:08)
[2018-05-07] MEDS: Promethazine DM 12.5 mg-30 mg/10 ml Syrup PO PRN (08:19)
[2018-05-07 08:31] LABS: BASO % 0.1 % (0.0-2.0); HEMOGLOBIN 11.1 g/dL (11.0-16.0); LYMPH # 2.1 K/uL (1.0-4.3); LYMPH % 7.7 % (20.0-40.0); MEAN CELL VOLUME 95.6 fL (81.0-99.0); MEAN CORPUSCULAR HEMOGLOBIN 30.9 pg (27.0-31.0); MEAN CORPUSCULAR HGB CONC 32.3 g/dL (33.0-37.0); MEAN PLATELET VOLUME 11.1 fL (7.2-11.7); MONO # 1.3 K/uL (0.0-0.8); MONO % 4.8 % (0.0-10.0); NEUT % 87.4 % (50.0-75.0); NRBC % 0.2 % (0.0-2.0); RBC 3.59 Mil/uL (3.80-5.20); RED CELL DISTRIBUTION WIDTH 14.8 % (11.5-14.5); WHITE BLOOD COUNT 27.5 K/uL (4.8-10.8)
[2018-05-07 08:35] VITALS: RESP 20
[2018-05-07 08:36] LABS: ALB/GLOB RATIO 1.2 (1.0-2.1); ALBUMIN 3.7 g/dL (3.5-5.0); CALCIUM 8.5 mg/dl (8.6-10.4)
[2018-05-07 08:49] LABS: PLATELET COUNT 305 K/uL (130-400)
[2018-05-07 10:01] LABS: TOTAL CELLS COUNTED 100
[2018-05-07 10:02] LABS: LYMPHOCYTE 6 % (20-40); MONOCYTE 4 % (0-10); NEUTROPHIL 90 % (50-75); PLATELET ESTIMATE NORMAL (NORMAL)
[2018-05-07 10:03] LABS: GIANT PLATELETS PRESENT; LARGE PLATELETS PRESENT
[2018-05-07] MEDS: MethylPREDNISolone 40 mg Vial IVP SCH (10:33)
--- NOTE | 2018-05-07 11:14 | CP.PCM.PN ---
Subjective - Date & Time of Evaluation Date of Evaluation: 05/07/18 Time of Evaluation: 11:12 - Subjective Subjective: seen and examined on iv merrem on iv steroids s/p hd yesterday bp stable no n/v/d/f/c/cough/dizziness/cp short of breath Objective - Vital Signs/Intake and Output Vital Signs (last 24 hours): Temp Pulse Resp BP Pulse Ox 97.6 F 76 20 123/54 L 94 L 05/07/18 07:00 05/07/18 07:30 05/07/18 07:00 05/07/18 10:34 05/07/18 07:00 Intake and Output: 05/07/18 05/07/18 06:59 18:59 Intake Total 240 Balance 240 - Medications Medications: Current Medications Acetaminophen (Tylenol 325mg Tab) 650 mg PO Q6 PRN PRN Reason: pain+fever Last Admin: 05/06/18 18:23 Dose: 650 mg Amiodarone HCl (Cordarone) 200 mg PO Q12H [facility] Last Admin: 05/07/18 10:33 Dose: 200 mg Apixaban (Eliquis) 2.5 mg PO BID [facility] Last Admin: 05/07/18 10:34 Dose: 2.5 mg Calcium Acetate (Phoslo) 1,334 mg PO TID [facility] Last Admin: 05/07/18 10:33 Dose: 1,334 mg Epoetin Eddie (Procrit) 10,000 unit IV MWF [facility] Last Admin: 05/06/18 16:07 Dose: 10,000 unit Famotidine (Pepcid) 20 mg PO DAILY [facility] Last Admin: 05/07/18 10:34 Dose: 20 mg Fluticasone/Vilanterol (Breo Ellipta 200-25 Mcg Inh) 1 puff INH RQD [facility] Glipizide (Glucotrol) 10 mg PO ACBD [facility] Last Admin: 05/07/18 06:57 Dose: 10 mg Meropenem 500 mg/ Sodium (Chloride) 100 mls @ 100 mls/hr IVPB Q12H [facility]; Protocol Last Admin: 05/07/18 00:43 Dose: 100 mls/hr Insulin Aspart (Novolog) 0 unit SC ACHS [facility]; Protocol Last Admin: 05/07/18 08:18 Dose: Not Given Insulin Aspart (Novolog Mix 70/30 (70/30 Units/Ml)) 20 units SC ACBD [facility] Last Admin: 05/07/18 08:18 Dose: Not Given Insulin Detemir (Levemir) 12 unit SC Q12H [facility] Last Admin: 05/07/18 00:48 Dose: Not Given Ipratropium [place] (Atrovent) 0.5 mg IH RQ6 PRN PRN Reason: Shortness of Breath Last Admin: 05/05/18 07:54 Dose: 0.5 mg Levothyroxine Sodium (Synthroid) 75 mcg PO DAILY@0630 [facility] Last Admin: 05/07/18 06:57 Dose: 75 mcg Methylprednisolone (Solu-Medrol) 40 mg IVP DAILY [facility] Last Admin: 05/07/18 10:33 Dose: 40 mg Metoprolol Tartrate (Lopressor) 25 mg PO BID [facility] Last Admin: 05/07/18 10:34 Dose: 25 mg Promethazine HCl/Dextromethorphan (Phenergan Dm Syrup) 10 ml PO Q6 PRN PRN Reason: Cough Last Admin: 05/07/18 08:19 Dose: 10 ml Tiotropium [place] (Spiriva) 18 mcg INH RQ24 [facility] Last Admin: 05/07/18 08:12 Dose: 18 mcg - Labs Labs: 05/07/18 08:09 05/07/18 08:09 PT 13.8 SECONDS (9.7-12.2) H 05/01/18 19:00 INR 1.3 05/01/18 19:00 APTT 103 SECONDS (21-34) H* D 05/02/18 06:09 - Constitutional Appears: Non-toxic, No Acute Distress, Chronically Ill - Head Exam Head Exam: NORMAL INSPECTION, NORMOCEPHALIC - Eye Exam Eye Exam: Normal appearance, PERRL - ENT Exam ENT Exam: Mucous Membranes Moist, Normal Exam - Neck Exam Neck Exam: Full ROM, Normal Inspection - Respiratory Exam Respiratory Exam: Decreased Breath Sounds, NORMAL BREATHING PATTERN - Cardiovascular Exam Cardiovascular Exam: REGULAR RHYTHM, RRR - GI/Abdominal Exam GI & Abdominal Exam: Distended, Soft, Normal Bowel Sounds - Extremities Exam Extremities Exam: Full ROM, Normal Inspection - Neurological Exam Neurological Exam: Alert, Awake, Oriented x3 - Psychiatric Exam Psychiatric exam: Normal Affect, Normal Mood - Skin Skin Exam: Dry, Intact Assessment and Plan (1) COPD exacerbation Status: Acute (2) ESRD (end stage renal disease) on dialysis Status: Acute (3) Multiple myeloma Status: Acute (4) Paroxysmal A-fib Status: Acute - Assessment and Plan (Free Text) Assessment: on eliquis / amiodarone bp stable maintain hd mwf, 2K bath recommend taper steroids antibiotic coverage per ID
--- NOTE | 2018-05-07 11:41 | CARD ---
APPROVED REPORT Date of service: 05/06/2018 EKG Measurement Heart [id number] <Conclusion> Normal sinus rhythm Normal ECG
--- NOTE | 2018-05-07 11:46 | CP.PCM.PN ---
Subjective - Date & Time of Evaluation Date of Evaluation: 05/07/18 Time of Evaluation: 08:00 - Subjective Subjective: awake alert less sob Objective - Vital Signs/Intake and Output Vital Signs (last 24 hours): Temp Pulse Resp BP Pulse Ox 97.6 F 76 20 123/54 L 94 L 05/07/18 07:00 05/07/18 07:30 05/07/18 07:00 05/07/18 10:34 05/07/18 07:00 Intake and Output: 05/07/18 05/07/18 06:59 18:59 Intake Total 240 Balance 240 - Medications Medications: Current Medications Acetaminophen (Tylenol 325mg Tab) 650 mg PO Q6 PRN PRN Reason: pain+fever Last Admin: 05/06/18 18:23 Dose: 650 mg Amiodarone HCl (Cordarone) 200 mg PO Q12H [facility] Last Admin: 05/07/18 10:33 Dose: 200 mg Apixaban (Eliquis) 2.5 mg PO BID [facility] Last Admin: 05/07/18 10:34 Dose: 2.5 mg Calcium Acetate (Phoslo) 1,334 mg PO TID [facility] Last Admin: 05/07/18 10:33 Dose: 1,334 mg Epoetin Eddie (Procrit) 10,000 unit IV MWF [facility] Last Admin: 05/06/18 16:07 Dose: 10,000 unit Famotidine (Pepcid) 20 mg PO DAILY [facility] Last Admin: 05/07/18 10:34 Dose: 20 mg Fluticasone/Vilanterol (Breo Ellipta 200-25 Mcg Inh) 1 puff INH RQD [facility] Glipizide (Glucotrol) 10 mg PO ACBD [facility] Last Admin: 05/07/18 06:57 Dose: 10 mg Meropenem 500 mg/ Sodium (Chloride) 100 mls @ 100 mls/hr IVPB Q12H [facility]; Protocol Last Admin: 05/07/18 00:43 Dose: 100 mls/hr Insulin Aspart (Novolog) 0 unit SC [facility]; Protocol Last Admin: 05/07/18 08:18 Dose: Not Given Insulin Aspart (Novolog Mix 70/30 (70/30 Units/Ml)) 20 units SC ACBD [facility] Last Admin: 05/07/18 08:18 Dose: Not Given Insulin Detemir (Levemir) 12 unit SC Q12H [facility] Last Admin: 05/07/18 00:48 Dose: Not Given Ipratropium [place] (Atrovent) 0.5 mg IH RQ6 PRN PRN Reason: Shortness of Breath Last Admin: 05/05/18 07:54 Dose: 0.5 mg Levothyroxine Sodium (Synthroid) 75 mcg PO DAILY@0630 [facility] Last Admin: 05/07/18 06:57 Dose: 75 mcg Methylprednisolone (Solu-Medrol) 40 mg IVP DAILY [facility] Last Admin: 05/07/18 10:33 Dose: 40 mg Metoprolol Tartrate (Lopressor) 25 mg PO BID [facility] Last Admin: 05/07/18 10:34 Dose: 25 mg Promethazine HCl/Dextromethorphan (Phenergan Dm Syrup) 10 ml PO Q6 PRN PRN Reason: Cough Last Admin: 05/07/18 08:19 Dose: 10 ml Tiotropium [place] (Spiriva) 18 mcg INH RQ24 [facility] Last Admin: 05/07/18 08:12 Dose: 18 mcg - Labs Labs: 05/07/18 08:09 05/07/18 08:09 PT 13.8 SECONDS (9.7-12.2) H 05/01/18 19:00 INR 1.3 05/01/18 19:00 APTT 103 SECONDS (21-34) H* D 05/02/18 06:09 - Constitutional Appears: Non-toxic, Chronically Ill - Head Exam Head Exam: NORMOCEPHALIC - Eye Exam Eye Exam: absent: Scleral icterus - ENT Exam ENT Exam: Mucous Membranes Dry - Neck Exam Neck Exam: absent: Lymphadenopathy - Respiratory Exam Respiratory Exam: Decreased Breath Sounds - Cardiovascular Exam Cardiovascular Exam: REGULAR RHYTHM - GI/Abdominal Exam GI & Abdominal Exam: Distended, Soft Assessment and Plan (1) COPD exacerbation Status: Acute (2) Multiple myeloma Status: Acute (3) Paroxysmal A-fib Status: Acute (4) Bronchitis Status: Acute (5) CHF exacerbation Status: Acute (6) COPD (chronic obstructive pulmonary disease) Status: Acute (7) ESRD (end stage renal disease) Status: Acute (8) History of atrial fibrillation Status: Acute (9) History of gastroesophageal reflux (GERD) Status: Acute (10) Multiple myeloma Status: Acute
--- NOTE | 2018-05-07 15:35 | CP.PCM.PN ---
Subjective - Date & Time of Evaluation Date of Evaluation: 05/07/18 Time of Evaluation: 15:34 - Subjective Subjective: Patient seen and examined No events overnight Objective - Vital Signs/Intake and Output Vital Signs (last 24 hours): Temp Pulse Resp BP Pulse Ox 97.6 F 76 20 123/54 L 94 L 05/07/18 07:00 05/07/18 07:30 05/07/18 07:00 05/07/18 10:34 05/07/18 07:00 Intake and Output: 05/07/18 05/07/18 06:59 18:59 Intake Total 240 Balance 240 - Medications Medications: Current Medications Acetaminophen (Tylenol 325mg Tab) 650 mg PO Q6 PRN PRN Reason: pain+fever Last Admin: 05/06/18 18:23 Dose: 650 mg Amiodarone HCl (Cordarone) 200 mg PO Q12H [facility] Last Admin: 05/07/18 10:33 Dose: 200 mg Apixaban (Eliquis) 2.5 mg PO BID [facility] Last Admin: 05/07/18 10:34 Dose: 2.5 mg Calcium Acetate (Phoslo) 1,334 mg PO TID [facility] Last Admin: 05/07/18 13:33 Dose: 1,334 mg Epoetin Eddie (Procrit) 10,000 unit IV MWF [facility] Last Admin: 05/06/18 16:07 Dose: 10,000 unit Famotidine (Pepcid) 20 mg PO DAILY [facility] Last Admin: 05/07/18 10:34 Dose: 20 mg Fluticasone/Vilanterol (Breo Ellipta 200-25 Mcg Inh) 1 puff INH RQD [facility] Last Admin: 05/07/18 13:55 Dose: Not Given Glipizide (Glucotrol) 10 mg PO ACBD [facility] Last Admin: 05/07/18 06:57 Dose: 10 mg Heparin Sodium (Porcine) (Heparin Lock Flush) 300 units IVF ONCE ONE Stop: 05/07/18 15:31 Meropenem 500 mg/ Sodium (Chloride) 100 mls @ 100 mls/hr IVPB Q12H [facility]; Protocol Last Admin: 05/07/18 13:12 Dose: 100 mls/hr Insulin Aspart (Novolog) 0 unit SC ACHS [facility]; Protocol Last Admin: 05/07/18 13:08 Dose: 3 units Insulin Aspart (Novolog Mix 70/30 (70/30 Units/Ml)) 20 units SC ACBD [facility] Last Admin: 05/07/18 08:18 Dose: Not Given Insulin Detemir (Levemir) 12 unit SC Q12H [facility] Last Admin: 05/07/18 13:08 Dose: 12 units Ipratropium [place] (Atrovent) 0.5 mg IH RQ6 PRN PRN Reason: Shortness of Breath Last Admin: 05/05/18 07:54 Dose: 0.5 mg Levothyroxine Sodium (Synthroid) 75 mcg PO DAILY@0630 [facility] Last Admin: 05/07/18 06:57 Dose: 75 mcg Methylprednisolone (Solu-Medrol) 40 mg IVP DAILY [facility] Last Admin: 05/07/18 10:33 Dose: 40 mg Metoprolol Tartrate (Lopressor) 25 mg PO BID [facility] Last Admin: 05/07/18 10:34 Dose: 25 mg Promethazine HCl/Dextromethorphan (Phenergan Dm Syrup) 10 ml PO Q6 PRN PRN Reason: Cough Last Admin: 05/07/18 08:19 Dose: 10 ml Tiotropium [place] (Spiriva) 18 mcg INH RQ24 [facility] Last Admin: 05/07/18 08:12 Dose: 18 mcg - Labs Labs: 05/07/18 08:09 05/07/18 08:09 PT 13.8 SECONDS (9.7-12.2) H 05/01/18 19:00 INR 1.3 05/01/18 19:00 APTT 103 SECONDS (21-34) H* D 05/02/18 06:09 - Head Exam Head Exam: NORMAL INSPECTION - Eye Exam Eye Exam: Normal appearance - ENT Exam ENT Exam: Mucous Membranes Moist - Respiratory Exam Respiratory Exam: Clear to Ausculation Bilateral - Cardiovascular Exam Cardiovascular Exam: REGULAR RHYTHM, +S1, +S2 - GI/Abdominal Exam GI & Abdominal Exam: Soft, Normal Bowel Sounds - Extremities Exam Extremities Exam: Normal Inspection Assessment and Plan (1) ESRD (end stage renal disease) on dialysis Status: Acute (2) COPD (chronic obstructive pulmonary disease) Status: Acute - Assessment and Plan (Free Text) Plan: Continue Abx Breo Ellipta 200/25 mcg 1 P daily Spiriva 18 mcg 2 P daily Bronchodilators Promethazine DVT/GI prophalaxis
[2018-05-07 18:30] VITALS: BP 116/68; PULSE 77; TEMP 98.1; O2SAT 96
== END 2018-05-07 17:15 | DRG 193 ==
LOC: C.ER 12:08 → C.9E 15:10 → C.9I 17:04 → C.6T 05-05 14:29
PROVIDERS: ADMIT Internal Medicine; ATTEND Internal Medicine
PROC: 5A2204Z Restoration of Cardiac Rhythm, Single (ICD-10-PCS; principal; 2018-05-01)
PROC: 5A1D70Z Performance of Urinary Filtration, Intermittent, Less than 6 Hours Per Day (ICD-10-PCS; 2018-05-03)
PROC: 5A1D70Z Performance of Urinary Filtration, Intermittent, Less than 6 Hours Per Day (ICD-10-PCS; 2018-05-03)
DX: J18.9 Pneumonia, unspecified organism (principal); I47.1 Supraventricular tachycardia; J44.0 Chronic obstructive pulmonary disease with (acute) lower respiratory infection; J44.1 Chronic obstructive pulmonary disease with (acute) exacerbation; N18.6 End stage renal disease; I13.2 Hypertensive heart and chronic kidney disease with heart failure and with stage 5 chronic kidney disease, or end stage renal disease; C90.01 Multiple myeloma in remission; I50.30 Unspecified diastolic (congestive) heart failure; J98.11 Atelectasis; I45.81 Long QT syndrome; I48.0 Paroxysmal atrial fibrillation; E03.9 Hypothyroidism, unspecified; E11.22 Type 2 diabetes mellitus with diabetic chronic kidney disease; I25.10 Atherosclerotic heart disease of native coronary artery without angina pectoris; I27.20 Pulmonary hypertension, unspecified; D72.829 Elevated white blood cell count, unspecified; T38.0X5A Adverse effect of glucocorticoids and synthetic analogues, initial encounter; K21.9 Gastro-esophageal reflux disease without esophagitis; K80.20 Calculus of gallbladder without cholecystitis without obstruction; E78.5 Hyperlipidemia, unspecified; E78.00 Pure hypercholesterolemia, unspecified; Z79.01 Long term (current) use of anticoagulants; Z79.4 Long term (current) use of insulin; Z79.890 Hormone replacement therapy; Z79.899 Other long term (current) drug therapy; Z87.891 Personal history of nicotine dependence; Z99.2 Dependence on renal dialysis; Z99.81 Dependence on supplemental oxygen; Z80.0 Family history of malignant neoplasm of digestive organs; Z80.8 Family history of malignant neoplasm of other organs or systems

== ENCOUNTER 2018-05-29 21:12 | Inpatient (IN) | payer MEDICARE ==
[2018-05-29 21:12] VITALS: BMI 29.7
--- NOTE | 2018-05-29 22:09 | C.PDOC ---
History Of Present Illness 83 year old female with PMHc of COPD, CHF, ESRD on dialysis, diabetes, afib, anemia, hypothyroidism, and multiple myeloma was admitted to the hospital for SOB, treated for exacerbation of COPD with possible pneumonia and then SVT and discharged on 05/07/18 to rehab. At that time patient's hemoglobin was 11.1, longterm sent her back today after her hemoglobin was found to be 6.8. Denies any complaints, cough, abdominal pain, difficulty breathing. She still makes a small amount of urine and has had no difficulty with it. Time Seen by Provider: 05/29/18 21:57 Chief Complaint (Nursing): Abnormal Labs History Per: Patient, Other ([facility]PC) History/Exam Limitations: no limitations Onset/Duration Of Symptoms: Days Current Symptoms Are (Timing): Still Present Recent travel outside of the [place]: No Past Medical History Reviewed: Historical Data, Nursing Documentation, Vital Signs Vital Signs: Last Vital Signs Temp 100.2 F H 05/29/18 21:21 Pulse 85 05/29/18 21:21 Resp 22 05/29/18 21:21 BP 103/67 05/29/18 21:21 Pulse Ox 94 L 05/29/18 21:21 - Medical History PMH: Anemia, Arthritis, Atrial Fibrillation, Cardia Arrhythmia, CHF, COPD, HTN, Hypercholesterolemia, Hyperlipidemia, Hypothyroidism, End Stage Renal Disease, Chronic Kidney Disease Surgical History: Endoscopy - [facility] Procedures (05/01/18) EXCISION OF STOMACH, ENDO, DIAGN (06/28/16) EXTRACTION OF ILIAC BONE MARROW, PERC APPROACH, DIAGN (12/25/16) FLUOROSCOPY OF SUP VENA CAVA USING L OSM CONTRAST, GUIDANCE (12/25/16) INSERT VAD RESERVOIR IN CHEST SUBCU/FASCIA, OPEN (12/25/16) INSERTION OF INFUSION DEV INTO SUP VENA CAVA, PERC APPROACH (12/25/16) INSPECTION OF LOWER INTESTINAL TRACT, ENDO (06/28/16) INSPECTION OF UPPER INTESTINAL TRACT, ENDO (09/25/16) INTRODUCE OTH ANTINEOPLASTIC IN CENTRAL VEIN, PERC (12/25/16) PERFORMANCE OF URINARY FILTRATION, MULTIPLE (12/25/16) TAOIST OF CARDIAC RHYTHM, SINGLE (05/01/18) TRANSFUSE NONAUT RED BLOOD CELLS IN PERIPH VEIN, PERC (12/25/16) Family History: States: No Known Family Hx - Social History Hx Tobacco Use: No Hx Alcohol Use: No Hx Substance Use: No - Immunization History Hx Tetanus Toxoid Vaccination: No Hx Influenza Vaccination: Yes Hx Pneumococcal Vaccination: Yes Review Of Systems Constitutional: Negative for: Fever, Chills Cardiovascular: Negative for: Chest Pain, Palpitations Respiratory: Negative for: Cough, Shortness of Breath Gastrointestinal: Negative for: Nausea, Vomiting, Abdominal Pain Genitourinary: Negative for: Dysuria, Hematuria Neurological: Negative for: Weakness, Numbness Physical Exam - Physical Exam Appears: Non-toxic Skin: Normal Color, Warm, Dry Head: Atraumatic, Normacephalic Eye(s): bilateral: Normal Inspection Oral Mucosa: Moist Neck: Normal, Supple Chest: Symmetrical, No Tenderness Cardiovascular: Rhythm Regular Respiratory: Normal Breath Sounds, No Rales, No Rhonchi, No Wheezing Gastrointestinal/Abdominal: Soft, No Tenderness, Other (Functioning left arm fistula) Back: No CVA Tenderness Extremity: No Pedal Edema Neurological/Psych: Oriented x3, Normal Speech ED Course And Treatment - Laboratory Results Result Diagrams: 05/29/18 22:38 05/29/18 22:38 Lab Interpretation: Abnormal (WBC 12.4, Hgb 7.3, Hct 22.6, BUN 23, Cr 2.1, HCO3 34) O2 Sat by Pulse Oximetry: 94 (Room air) Pulse Ox Interpretation: Normal - Radiology CXR: Interpreted by Me CXR Interpretation: Yes: No Acute Disease Progress Note: Blood work, urinalysis, and CXR ordered. Reevaluation Time: 23:39 Reassessment Condition: Unchanged - Physician Consult Information Time Consulting Physician Contacted: 23:39 Physician Contacted: Anup Penn Outcome Of Conversation: Patient to be admitted for transfusion and IV antibiotics. Disposition - Disposition Disposition: HOSPITALIZED Disposition Time: 23:40 Condition: FAIR - POA Present On Arrival: Poor Glycemic Control - Clinical Impression Clinical Impression: ESRD (end stage renal disease) on dialysis, Anemia - Scribe Statement The provider has reviewed the documentation as recorded by the Scribscout Lewis All medical record entries made by the Scribe were at my direction and pers onally dictated by me. I have reviewed the chart and agree that the record accurately reflects my personal performance of the history, physical exam, medical decision making, and the department course for this patient. I have also personally directed, reviewed, and agree with the discharge instructions and disposition.
[2018-05-29 22:47] LABS: BASO # 0.1 K/uL (0.0-0.2); BASO % 0.6 % (0.0-2.0); EOS % 0.3 % (0.0-4.0); MEAN PLATELET VOLUME 9.5 fL (7.2-11.7); RED CELL DISTRIBUTION WIDTH 15.2 % (11.5-14.5)
[2018-05-29 22:53] LABS: HEMOGLOBIN 7.3 g/dL (11.0-16.0); LYMPH # 1.6 K/uL (1.0-4.3); LYMPH % 12.9 % (20.0-40.0); MEAN CELL VOLUME 92.2 fL (81.0-99.0); MEAN CORPUSCULAR HEMOGLOBIN 29.7 pg (27.0-31.0); MEAN CORPUSCULAR HGB CONC 32.2 g/dL (33.0-37.0); MONO # 1.2 K/uL (0.0-0.8); MONO % 9.5 % (0.0-10.0); NEUT # 9.5 K/uL (1.8-7.0); NEUT % 76.7 % (50.0-75.0); RBC 2.45 Mil/uL (3.80-5.20); WHITE BLOOD COUNT 12.4 K/uL (4.8-10.8)
[2018-05-29 23:06] LABS: ALB/GLOB RATIO 0.9 (1.0-2.1); ALBUMIN 3.4 g/dL (3.5-5.0); CALCIUM 8.7 mg/dl (8.6-10.4)
[2018-05-29] MEDS ORDERED: Vancomycin 1 GM 1 GM/250 ML BAG IV STA (23:42)
[2018-05-30] MEDS ORDERED: Vancomycin 1 GM 1 GM/250 ML BAG IVPB ONE (00:06)
[2018-05-30] MEDS ORDERED: Home Med 1 UNIT (Meropenem [Merrem Iv] 500 MG) IVPB SCH (02:00)
[2018-05-30] MEDS ORDERED: Insulin Detemir 100 units/ml Vial (Levemir) SC SCH ×2 (02:00→09:00)
[2018-05-30] MEDS: Levothyroxine 75 MCG TAB PO SCH (06:25)
[2018-05-30] MEDS: (Novolin R) Insulin Human Regular 100 units/ml vial SC SCH ×4 (07:53→22:18)
[2018-05-30] MEDS: (Novolog Mix 70/30) Insulin Aspart/Insulin Aspar 100 units/ml SC SCH ×2 (07:53→17:34)
[2018-05-30] MEDS: Albuterol-Ipratrop 3 mg / 0.5 (3 ml) UD IH SCH ×3 (08:00→20:46)
[2018-05-30] MEDS: Tiotropium 18 mcg Cap For Inhalation INH SCH (08:00)
[2018-05-30 08:18] LABS: BASO # 0.1 K/uL (0.0-0.2); BASO % 0.8 % (0.0-2.0); EOS % 0.3 % (0.0-4.0); HEMOGLOBIN 7.8 g/dL (11.0-16.0); LYMPH # 2.1 K/uL (1.0-4.3); LYMPH % 14.6 % (20.0-40.0); MEAN CELL VOLUME 92.3 fL (81.0-99.0); MEAN CORPUSCULAR HEMOGLOBIN 29.5 pg (27.0-31.0); MEAN CORPUSCULAR HGB CONC 31.9 g/dL (33.0-37.0); MEAN PLATELET VOLUME 9.1 fL (7.2-11.7); MONO # 1.5 K/uL (0.0-0.8); MONO % 10.4 % (0.0-10.0); NEUT # 10.7 K/uL (1.8-7.0); NEUT % 73.9 % (50.0-75.0); RBC 2.64 Mil/uL (3.80-5.20); RED CELL DISTRIBUTION WIDTH 14.9 % (11.5-14.5); WHITE BLOOD COUNT 14.5 K/uL (4.8-10.8)
[2018-05-30 08:46] LABS: ALB/GLOB RATIO 0.9 (1.0-2.1); ALBUMIN 3.3 g/dL (3.5-5.0); CALCIUM 8.6 mg/dl (8.6-10.4)
[2018-05-30] MEDS: Insulin Detemir 100 units/ml Vial (Levemir) SC SCH ×2 (09:51→10:08)
[2018-05-30] MEDS ORDERED: Fluticasone-Vilanterol 200/25mcg Diskus INH SCH (10:00)
--- NOTE | 2018-05-30 10:35 | RAD ---
HISTORY: SOB COMPARISON: Chest x-ray performed 05/03/18, CT chest without contrast performed 05/03/18 TECHNIQUE: Chest, one view. FINDINGS: Examination limited by habitus and hypoinflation. Left-sided central venous catheter extends to the cavoatrial junction. LUNGS: Right hilar prominence. Mild left lower lobe atelectasis or infiltrate. Please note that chest x-ray has limited sensitivity for the detection of pulmonary masses. PLEURA: No significant pleural effusion identified. No definite pneumothorax . CARDIOVASCULAR: Heart size appears top normal. Aortic ectasia. Atherosclerotic calcifications of the aortic knob. OSSEOUS STRUCTURES: Degenerative changes. Osseous demineralization. VISUALIZED UPPER ABDOMEN: Unremarkable. OTHER FINDINGS: None. IMPRESSION: Hypoinflation. Left IJ approach central venous catheter extends the cavoatrial junction. Right hilar prominence. Mild left lower lobe atelectasis or infiltrate.
--- NOTE | 2018-05-30 15:20 | CP.PCM.CON ---
History of Present Illness - History of Present Illness History of Present Illness: 83 year old female with PMHc of COPD, CHF, ESRD on dialysis, diabetes, afib, anemia, hypothyroidism, and multiple [facility] 6.8. Denies any complaints, cough, abdominal pain, difficulty breathing. She st ill makes a small amount of urine and has had no difficulty with it. denies any blood in stools, no hematemesis, no other bleeding usual HD days are MW F PMHx- as above PSHx- endoscopy social- no smoking ,alcohol or drugs Family- no family history of kidney disease Review of Systems - Review of Systems Review of Systems: as per HPI, ohter than that 10 point ROS negative Past Patient History - Infectious Disease Hx of Infectious Diseases: None - Past Medical History & Family History Past Medical History?: Yes - Past Social History Smoking Status: Former Smoker - CARDIAC Hx Atrial Fibrillation: Yes Hx Cardia Arrhythmia: Yes Hx Congestive Heart Failure: Yes Hx Hypercholesterolemia: Yes Hx Hypertension: Yes - PULMONARY Hx Chronic Obstructive Pulmonary Disease (COPD): Yes - NEUROLOGICAL Hx Neurological Disorder: No - HEENT Hx HEENT Problems: Yes Hx Cataracts: Yes (bilateral) - RENAL Hx Chronic Kidney Disease: Yes - ENDOCRINE/METABOLIC Hx Hypothyroidism: Yes - HEMATOLOGICAL/ONCOLOGICAL Hx Anemia: Yes - INTEGUMENTARY Hx Dermatological Problems: No - MUSCULOSKELETAL/RHEUMATOLOGICAL Hx Arthritis: Yes Hx Falls: No - GASTROINTESTINAL Hx Gastrointestinal Disorders: Yes Hx Hemorrhoids: Yes - GENITOURINARY/GYNECOLOGICAL Hx Genitourinary Disorders: No - PSYCHIATRIC Hx Substance Use: No - SURGICAL HISTORY Hx Surgeries: Yes Hx Arteriovenous Shunt: Yes (LEFT ARM AV ,permacath) Hx Vascular Access Device: Yes (perma cath elaina cath) - ANESTHESIA Hx Anesthesia: Yes Hx Anesthesia Reactions: No Hx Malignant Hyperthermia: No Meds Allergies/Adverse Reactions: Allergies Allergy/AdvReac Type Severity Reaction Status Date / Time No Known Allergies Allergy Verified 05/29/18 21:28 - Medications Medications: Current Medications Albuterol/Ipratropium (Duoneb 3 Mg/0.5 Mg (3 Ml) Ud) 3 ml IH Q6H [facility] Last Admin: 05/30/18 08:00 Dose: 3 ml Amiodarone HCl (Cordarone) 200 mg PO DAILY [facility] Last Admin: 05/30/18 10:08 Dose: Not Given Apixaban (Eliquis) 2.5 mg PO BID [facility] Last Admin: 05/30/18 10:08 Dose: 2.5 mg Budesonide (Pulmicort Respules) 1 mg IH BID [facility] Calcium Acetate (Phoslo) 667 mg PO TID [facility] Last Admin: 05/30/18 13:48 Dose: 667 mg Docusate Sodium (Colace) 100 mg PO TID [facility] Last Admin: 05/30/18 10:07 Dose: Not Given Epoetin [place] (Procrit) 10,000 unit IV [facility] Famotidine (Pepcid) 20 mg PO DAILY [facility] Last Admin: 05/30/18 10:08 Dose: 20 mg Ferrous Sulfate (Feosol) 325 mg PO DAILY [facility] Last Admin: 05/30/18 10:07 Dose: 325 mg Fluticasone/Vilanterol (Breo Ellipta 200-25 Mcg Inh) 1 puff INH DAILY [facility] Glipizide (Glucotrol) 10 mg PO ACBD [facility] Last Admin: 05/30/18 07:55 Dose: 10 mg Insulin Aspart (Novolog Mix 70/30 (70/30 Units/Ml)) 20 units SC ACBD [facility] Last Admin: 05/30/18 07:53 Dose: Not Given Insulin Detemir (Levemir) 12 unit SC DAILY [facility] Last Admin: 05/30/18 10:08 Dose: Not Given Insulin Human Regular (Novolin R) 0 unit SC [facility]; Protocol Last Admin: 05/30/18 11:43 Dose: 6 units Ipratropium [place] (Atrovent) 0.5 mg IH RQ6 PRN PRN Reason: Shortness of Breath Levothyroxine Sodium (Synthroid) 75 mcg PO DAILY@0630 [facility] Last Admin: 05/30/18 06:25 Dose: 75 mcg Metoprolol Tartrate (Lopressor) 25 mg PO BID [facility] Last Admin: 05/30/18 10:08 Dose: Not Given Rosuvastatin Calcium (Crestor) [address] [facility] Tiotropium [place] (Spiriva) 18 mcg INH RQ24 [facility] Last Admin: 05/30/18 08:00 Dose: 18 mcg Physical Exam - Constitutional Appears: Non-toxic, No Acute Distress Additional comments: elderly female - Head Exam Head Exam: ATRAUMATIC, NORMOCEPHALIC - Eye Exam Eye Exam: EOMI, PERRL - ENT Exam ENT Exam: Mucous Membranes Moist - Respiratory Exam Respiratory Exam: Clear to Auscultation Bilateral. absent: Rhonchi, Wheezes - Cardiovascular Exam Cardiovascular Exam: REGULAR RHYTHM, +S1, +S2 - GI/Abdominal Exam GI & Abdominal Exam: Normal Bowel Sounds, Soft. absent: Tenderness - Extremities Exam Extremities exam: Positive for: full ROM. Negative for: pedal edema - Neurological Exam Neurological exam: Alert, Oriented x3 - Psychiatric Exam Psychiatric exam: Normal Affect, Normal Mood - Skin Skin Exam: Dry, Normal Color Results - Vital Signs Recent Vital Signs: Last Vital Signs Temp 98.7 F 05/30/18 07:00 Pulse 85 05/30/18 07:00 Resp 20 05/30/18 07:00 BP 108/42 L 05/30/18 07:00 Pulse Ox 95 05/30/18 07:00 - Labs Result Diagrams: 05/30/18 08:12 05/30/18 08:12 Labs: Laboratory Results - last 24 hr 05/29/18 05/29/18 05/29/18 22:38 22:38 23:52 WBC 12.4 H D RBC 2.45 L Hgb 7.3 L D Hct 22.6 L MCV 92.2 D MCH 29.7 MCHC 32.2 L RDW 15.2 H Plt Count 338 MPV 9.5 Neut % (Auto) 76.7 H Lymph % (Auto) 12.9 L [place] % (Auto) 9.5 Eos % (Auto) 0.3 Baso % (Auto) 0.6 Neut # (Auto) 9.5 H Lymph # (Auto) 1.6 [place] # (Auto) 1.2 H Eos # (Auto) 0.0 Baso # (Auto) 0.1 Sodium 134 Potassium 3.9 Chloride 94 L Carbon Dioxide 34 H Anion Gap 11 BUN 23 H Creatinine 2.1 H Est GFR ( Amer) 27 Est GFR (Non-Af Amer) 23 POC Glucose (mg/dL) Random Glucose 230 H D Calcium 8.7 Phosphorus Magnesium Total Bilirubin 0.5 AST 23 ALT 17 Alkaline Phosphatase 76 Total Protein 6.9 Albumin 3.4 L Globulin 3.6 Albumin/Globulin Ratio 0.9 L Blood Type B POSITIVE Antibody Screen Negative 05/30/18 05/30/18 05/30/18 01:21 07:02 08:12 WBC 14.5 H RBC 2.64 L Hgb 7.8 L Hct 24.4 L MCV 92.3 MCH 29.5 MCHC 31.9 L RDW 14.9 H Plt Count 389 MPV 9.1 Neut % (Auto) 73.9 Lymph % (Auto) 14.6 L [place] % (Auto) 10.4 H Eos % (Auto) 0.3 Baso % (Auto) 0.8 Neut # (Auto) 10.7 H Lymph # (Auto) 2.1 [place] # (Auto) 1.5 H Eos # (Auto) 0.0 Baso # (Auto) 0.1 Sodium Potassium Chloride Carbon Dioxide Anion Gap BUN Creatinine Est GFR ( Amer) Est GFR (Non-Af Amer) POC Glucose (mg/dL) 173 H 167 H Random Glucose Calcium Phosphorus Magnesium Total Bilirubin AST ALT Alkaline Phosphatase Total Protein Albumin Globulin Albumin/Globulin Ratio Blood Type Antibody Screen 05/30/18 05/30/18 08:12 11:00 WBC RBC Hgb Hct MCV MCH MCHC RDW Plt Count MPV Neut % (Auto) Lymph % (Auto) [place] % (Auto) Eos % (Auto) Baso % (Auto) Neut # (Auto) Lymph # (Auto) [place] # (Auto) Eos # (Auto) Baso # (Auto) Sodium 135 Potassium 4.0 Chloride 95 L Carbon Dioxide 35 H Anion Gap 9 L BUN 27 H Creatinine 2.7 H Est GFR ( Amer) 20 Est GFR (Non-Af Amer) 17 POC Glucose (mg/dL) 323 H Random Glucose 164 H D Calcium 8.6 Phosphorus 2.1 L Magnesium 2.0 Total Bilirubin 0.4 AST 28 ALT 12 Alkaline Phosphatase 79 Total Protein 6.9 Albumin 3.3 L Globulin 3.6 Albumin/Globulin Ratio 0.9 L Blood Type Antibody Screen Assessment & Plan (1) Anemia Status: Acute (2) ESRD (end stage renal disease) on dialysis Status: Acute (3) Atrial fibrillation with controlled ventricular response Status: Acute (4) CHF (congestive heart failure) Status: Acute (5) COPD (chronic obstructive pulmonary disease) Status: Acute - Assessment and Plan (Free Text) Plan: Anemia- ? etiology no active bleeding noted ? related to myeloma repeat Hb 7.8 in the hospital to get blood transfusion with HD tomorrow epo with HD check stool occult blood
--- NOTE | 2018-05-30 19:27 | CP.PCM.HP ---
Past Patient History - Infectious Disease Hx of Infectious Diseases: None - Past Medical History & Family History Past Medical History?: Yes - Past Social History Smoking Status: Former Smoker - CARDIAC Hx Atrial Fibrillation: Yes Hx Cardia Arrhythmia: Yes Hx Congestive Heart Failure: Yes Hx Hypercholesterolemia: Yes Hx Hypertension: Yes - PULMONARY Hx Chronic Obstructive Pulmonary Disease (COPD): Yes - NEUROLOGICAL Hx Neurological Disorder: No - HEENT Hx HEENT Problems: Yes Hx Cataracts: Yes (bilateral) - RENAL Hx Chronic Kidney Disease: Yes - ENDOCRINE/METABOLIC Hx Hypothyroidism: Yes - HEMATOLOGICAL/ONCOLOGICAL Hx Anemia: Yes - INTEGUMENTARY Hx Dermatological Problems: No - MUSCULOSKELETAL/RHEUMATOLOGICAL Hx Arthritis: Yes Hx Falls: No - GASTROINTESTINAL Hx Gastrointestinal Disorders: Yes Hx Hemorrhoids: Yes - GENITOURINARY/GYNECOLOGICAL Hx Genitourinary Disorders: No - PSYCHIATRIC Hx Substance Use: No - SURGICAL HISTORY Hx Surgeries: Yes Hx Arteriovenous Shunt: Yes (LEFT ARM AV ,permacath) Hx Vascular Access Device: Yes (perma cath elaina cath) - ANESTHESIA Hx Anesthesia: Yes Hx Anesthesia Reactions: No Hx Malignant Hyperthermia: No Meds Allergies/Adverse Reactions: Allergies Allergy/AdvReac Type Severity Reaction Status Date / Time No Known Allergies Allergy Verified 05/29/18 21:28 Physical Exam - Constitutional Appears: Well - Head Exam Head Exam: ATRAUMATIC, NORMAL INSPECTION, NORMOCEPHALIC - Eye Exam Eye Exam: EOMI, Normal appearance, PERRL Pupil Exam: NORMAL ACCOMODATION, PERRL - ENT Exam ENT Exam: Mucous Membranes Moist, Normal Exam - Neck Exam Neck exam: Positive for: Normal Inspection - Respiratory Exam Respiratory Exam: Decreased Breath Sounds - Cardiovascular Exam Cardiovascular Exam: REGULAR RHYTHM, +S1, +S2 - GI/Abdominal Exam GI & Abdominal Exam: Diminished Bowel Sounds, Soft - Rectal Exam Rectal Exam: Deferred Results - Vital Signs Recent Vital Signs: Last Vital Signs Temp 98.9 F 05/30/18 16:04 Pulse 91 H 05/30/18 16:04 Resp 20 05/30/18 16:04 BP 94/56 L 05/30/18 16:04 Pulse Ox 95 05/30/18 16:04 - Labs Result Diagrams: 05/30/18 08:12 05/30/18 08:12 Labs: Laboratory Results - last 24 hr 05/29/18 05/29/18 05/29/18 22:38 22:38 23:52 WBC 12.4 H D RBC 2.45 L Hgb 7.3 L D Hct 22.6 L MCV 92.2 D MCH 29.7 MCHC 32.2 L RDW 15.2 H Plt Count 338 MPV 9.5 Neut % (Auto) 76.7 H Lymph % (Auto) 12.9 L [place] % (Auto) 9.5 Eos % (Auto) 0.3 Baso % (Auto) 0.6 Neut # (Auto) 9.5 H Lymph # (Auto) 1.6 [place] # (Auto) 1.2 H Eos # (Auto) 0.0 Baso # (Auto) 0.1 Sodium 134 Potassium 3.9 Chloride 94 L Carbon Dioxide 34 H Anion Gap 11 BUN 23 H Creatinine 2.1 H Est GFR ( Amer) 27 Est GFR (Non-Af Amer) 23 POC Glucose (mg/dL) Random Glucose 230 H D Calcium 8.7 Phosphorus Magnesium Total Bilirubin 0.5 AST 23 ALT 17 Alkaline Phosphatase 76 Total Protein 6.9 Albumin 3.4 L Globulin 3.6 Albumin/Globulin Ratio 0.9 L Blood Type B POSITIVE Antibody Screen Negative 05/30/18 05/30/18 05/30/18 01:21 07:02 08:12 WBC 14.5 H RBC 2.64 L Hgb 7.8 L Hct 24.4 L MCV 92.3 MCH 29.5 MCHC 31.9 L RDW 14.9 H Plt Count 389 MPV 9.1 Neut % (Auto) 73.9 Lymph % (Auto) 14.6 L [place] % (Auto) 10.4 H Eos % (Auto) 0.3 Baso % (Auto) 0.8 Neut # (Auto) 10.7 H Lymph # (Auto) 2.1 [place] # (Auto) 1.5 H Eos # (Auto) 0.0 Baso # (Auto) 0.1 Sodium Potassium Chloride Carbon Dioxide Anion Gap BUN Creatinine Est GFR ( Amer) Est GFR (Non-Af Amer) POC Glucose (mg/dL) 173 H 167 H Random Glucose Calcium Phosphorus Magnesium Total Bilirubin AST ALT Alkaline Phosphatase Total Protein Albumin Globulin Albumin/Globulin Ratio Blood Type Antibody Screen 05/30/18 05/30/18 05/30/18 08:12 11:00 15:51 WBC RBC Hgb Hct MCV MCH MCHC RDW Plt Count MPV Neut % (Auto) Lymph % (Auto) [place] % (Auto) Eos % (Auto) Baso % (Auto) Neut # (Auto) Lymph # (Auto) [place] # (Auto) Eos # (Auto) Baso # (Auto) Sodium 135 Potassium 4.0 Chloride 95 L Carbon Dioxide 35 H Anion Gap 9 L BUN 27 H Creatinine 2.7 H Est GFR ( Amer) 20 Est GFR (Non-Af Amer) 17 POC Glucose (mg/dL) 323 H 99 Random Glucose 164 H D Calcium 8.6 Phosphorus 2.1 L Magnesium 2.0 Total Bilirubin 0.4 AST 28 ALT 12 Alkaline Phosphatase 79 Total Protein 6.9 Albumin 3.3 L Globulin 3.6 Albumin/Globulin Ratio 0.9 L Blood Type Antibody Screen
[2018-05-31] MEDS: Albuterol-Ipratrop 3 mg / 0.5 (3 ml) UD IH SCH ×4 (01:45→20:40)
[2018-05-31] MEDS: Levothyroxine 75 MCG TAB PO SCH (05:55)
[2018-05-31] MEDS: Tiotropium 18 mcg Cap For Inhalation INH SCH (07:40)
[2018-05-31] MEDS: (Novolog Mix 70/30) Insulin Aspart/Insulin Aspar 100 units/ml SC SCH (07:50)
[2018-05-31] MEDS: (Novolin R) Insulin Human Regular 100 units/ml vial SC SCH ×4 (07:51→21:23)
[2018-05-31 08:02] LABS: BASO % 0.3 % (0.0-2.0); EOS % 0.4 % (0.0-4.0); LYMPH # 0.9 K/uL (1.0-4.3); LYMPH % 8.1 % (20.0-40.0); MEAN CELL VOLUME 92.1 fL (81.0-99.0); MEAN CORPUSCULAR HGB CONC 31.5 g/dL (33.0-37.0); MEAN PLATELET VOLUME 9.4 fL (7.2-11.7); MONO # 1.2 K/uL (0.0-0.8); MONO % 10.2 % (0.0-10.0); NEUT # 9.3 K/uL (1.8-7.0); PLATELET COUNT 321 K/uL (130-400); RBC 2.39 Mil/uL (3.80-5.20); RED CELL DISTRIBUTION WIDTH 15.1 % (11.5-14.5); WHITE BLOOD COUNT 11.5 K/uL (4.8-10.8)
[2018-05-31 08:10] LABS: HEMOGLOBIN 6.9 g/dL (11.0-16.0)
[2018-05-31 10:06] LABS: BANDS 4 % (0-2); LYMPHOCYTE 7 % (20-40); MONOCYTE 8 % (0-10); NEUTROPHIL 81 % (50-75); TOTAL CELLS COUNTED 100
[2018-05-31 10:07] LABS: ANISOCYTOSIS SLIGHT; HYPOCHROMIC SLIGHT; PLATELET ESTIMATE NORMAL (NORMAL)
[2018-05-31] MEDS: Insulin Detemir 100 units/ml Vial (Levemir) SC SCH (10:52)
--- NOTE | 2018-05-31 11:37 | CP.PCM.PCO ---
Physician Communication Note - Physician Communication Note Physician Communication Note: Patient in HD, pall consult pending
[2018-05-31] MEDS ORDERED: Dextrose 25% Inj (10ml) IV ONE (12:05)
[2018-05-31] MEDS ORDERED: Dextrose 50% SYRINGE Inj (50 ml) IV STA (12:14)
[2018-05-31] MEDS: Epoetin Alfa 10,000 unit/ml Dialysis IV SCH (12:27)
--- NOTE | 2018-05-31 12:28 | CP.PCM.CON ---
History of Present Illness - History of Present Illness History of Present Illness: 83 year old female with a history of COPD, CHF, DM, afib, hypothyroid, multiple myeloma treated with Dr. Martinez, sent from the [place] after finding the patients hgb to be 6.8. She denies abnormal bleeding and bruising. She is unsure of her treatment for multiple myeloma. She is receiving 2U PRBC with HD. Past medical history: COPD, CHF, DM, afib, hypothyroid, multiple myeloma Past surgical history: Denies Family history: Denies hematologic and oncologic problems Social history: Denies tobacco, alcohol, and illicit drug use. Allergies: NKA Review of systems: All remaining review of systems including HEENT, cardiovascular, respiratory, gastrointestinal, genitourinary, musculoskeletal, dermatologic, neurologic, and psychiatric are negative unless mentioned in the HPI. Past Patient History - Infectious Disease Hx of Infectious Diseases: None - Past Medical History & Family History Past Medical History?: Yes - Past Social History Smoking Status: Former Smoker - CARDIAC Hx Atrial Fibrillation: Yes Hx Cardia Arrhythmia: Yes Hx Congestive Heart Failure: Yes Hx Hypercholesterolemia: Yes Hx Hypertension: Yes - PULMONARY Hx Chronic Obstructive Pulmonary Disease (COPD): Yes - NEUROLOGICAL Hx Neurological Disorder: No - HEENT Hx HEENT Problems: Yes Hx Cataracts: Yes (bilateral) - RENAL Hx Chronic Kidney Disease: Yes - ENDOCRINE/METABOLIC Hx Hypothyroidism: Yes - HEMATOLOGICAL/ONCOLOGICAL Hx Anemia: Yes - INTEGUMENTARY Hx Dermatological Problems: No - MUSCULOSKELETAL/RHEUMATOLOGICAL Hx Arthritis: Yes Hx Falls: No - GASTROINTESTINAL Hx Gastrointestinal Disorders: Yes Hx Hemorrhoids: Yes - GENITOURINARY/GYNECOLOGICAL Hx Genitourinary Disorders: No - PSYCHIATRIC Hx Substance Use: No - SURGICAL HISTORY Hx Surgeries: Yes Hx Arteriovenous Shunt: Yes (LEFT ARM AV ,permacath) Hx Vascular Access Device: Yes (perma cath elaina cath) - ANESTHESIA Hx Anesthesia: Yes Hx Anesthesia Reactions: No Hx Malignant Hyperthermia: No Meds Allergies/Adverse Reactions: Allergies Allergy/AdvReac Type Severity Reaction Status Date / Time No Known Allergies Allergy Verified 05/29/18 21:28 - Medications Medications: Current Medications Albuterol/Ipratropium (Duoneb 3 Mg/0.5 Mg (3 Ml) Ud) 3 ml IH Q6H [facility] Last Admin: 05/31/18 07:40 Dose: 3 ml Amiodarone HCl (Cordarone) 200 mg PO DAILY [facility] Last Admin: 05/31/18 09:10 Dose: Not Given Apixaban (Eliquis) 2.5 mg PO BID [facility] Last Admin: 05/30/18 17:30 Dose: 2.5 mg Budesonide (Pulmicort Respules) 1 mg IH BID [facility] Calcium Acetate (Phoslo) 667 mg PO TID [facility] Last Admin: 05/31/18 09:10 Dose: Not Given Docusate Sodium (Colace) 100 mg PO TID [facility] Last Admin: 05/31/18 09:09 Dose: Not Given Epoetin Eddie (Procrit) 10,000 unit IV MWF [facility] Famotidine (Pepcid) 20 mg PO DAILY [facility] Last Admin: 05/31/18 09:10 Dose: Not Given Ferrous Sulfate (Feosol) 325 mg PO DAILY [facility] Last Admin: 05/31/18 09:10 Dose: Not Given Fluticasone/Vilanterol (Breo Ellipta 200-25 Mcg Inh) 1 puff INH DAILY [facility] Glipizide (Glucotrol) 10 mg PO ACBD [facility] Last Admin: 05/31/18 07:49 Dose: 10 mg Insulin Aspart (Novolog Mix 70/30 (70/30 Units/Ml)) 20 units SC ACBD [facility] Last Admin: 05/31/18 07:50 Dose: 20 units Insulin Detemir (Levemir) 12 unit SC DAILY [facility] Last Admin: 05/31/18 10:52 Dose: Not Given Insulin Human Regular (Novolin R) 0 unit SC [facility]; Protocol Last Admin: 05/31/18 11:26 Dose: Not Given Ipratropium [place] (Atrovent) 0.5 mg IH RQ6 PRN PRN Reason: Shortness of Breath Levothyroxine Sodium (Synthroid) 75 mcg PO DAILY@0630 [facility] Last Admin: 05/31/18 05:55 Dose: 75 mcg Metoprolol Tartrate (Lopressor) 25 mg PO BID [facility] Last Admin: 05/31/18 09:10 Dose: Not Given Rosuvastatin Calcium (Crestor) 5 mg PO HS [facility] Last Admin: 05/30/18 21:36 Dose: 5 mg Tiotropium [place] (Spiriva) 18 mcg INH RQ24 [facility] Last Admin: 05/31/18 07:40 Dose: 18 mcg Physical Exam - Head Exam Head Exam: ATRAUMATIC - Eye Exam Eye Exam: Normal appearance - ENT Exam ENT Exam: Mucous Membranes Dry - Respiratory Exam Respiratory Exam: NORMAL BREATHING PATTERN - Cardiovascular Exam Cardiovascular Exam: +S1, +S2 - GI/Abdominal Exam GI & Abdominal Exam: Normal Bowel Sounds - Extremities Exam Extremities exam: Positive for: pedal edema - Neurological Exam Neurological exam: Oriented x3 - Psychiatric Exam Psychiatric exam: Normal Affect, Normal Mood - Skin Skin Exam: Warm Results - Vital Signs Recent Vital Signs: Last Vital Signs Temp 97.6 F 05/31/18 12:04 Pulse 105 H 05/31/18 12:04 Resp 21 05/31/18 12:04 BP 101/74 05/31/18 12:04 Pulse Ox 94 L 05/31/18 10:10 - Labs Result Diagrams: 06/01/18 09:18 05/30/18 08:12 Labs: Laboratory Results - last 24 hr 05/29/18 05/30/18 05/30/18 23:52 15:51 21:30 WBC RBC Hgb Hct MCV MCH MCHC RDW Plt Count MPV Neut % (Auto) Lymph % (Auto) [place] % (Auto) Eos % (Auto) Baso % (Auto) Neut # (Auto) Lymph # (Auto) [place] # (Auto) Eos # (Auto) Baso # (Auto) Neutrophils % (Manual) Band Neutrophils % Lymphocytes % (Manual) Monocytes % (Manual) Eosinophils % (Manual) Platelet Estimate Hypochromasia (manual) Anisocytosis (manual) POC Glucose (mg/dL) 99 268 H Blood Type B POSITIVE Antibody Screen Negative 05/31/18 05/31/18 05/31/18 07:27 07:30 11:38 WBC 11.5 H RBC 2.39 L Hgb 6.9 L Hct 22.0 L MCV 92.1 MCH 29.0 MCHC 31.5 L RDW 15.1 H Plt Count 321 MPV 9.4 Neut % (Auto) 81.0 H Lymph % (Auto) 8.1 L [place] % (Auto) 10.2 H Eos % (Auto) 0.4 Baso % (Auto) 0.3 Neut # (Auto) 9.3 H Lymph # (Auto) 0.9 L [place] # (Auto) 1.2 H Eos # (Auto) 0.0 Baso # (Auto) 0.0 Neutrophils % (Manual) 81 H Band Neutrophils % 4 H Lymphocytes % (Manual) 7 L Monocytes % (Manual) 8 Eosinophils % (Manual) TEST NOT PERFORMED Platelet Estimate Normal Hypochromasia (manual) Slight Anisocytosis (manual) Slight POC Glucose (mg/dL) 209 H 26 L* Blood Type Antibody Screen 05/31/18 05/31/18 05/31/18 11:40 11:54 12:13 WBC RBC Hgb Hct MCV MCH MCHC RDW Plt Count MPV Neut % (Auto) Lymph % (Auto) [place] % (Auto) Eos % (Auto) Baso % (Auto) Neut # (Auto) Lymph # (Auto) [place] # (Auto) Eos # (Auto) Baso # (Auto) Neutrophils % (Manual) Band Neutrophils % Lymphocytes % (Manual) Monocytes % (Manual) Eosinophils % (Manual) Platelet Estimate Hypochromasia (manual) Anisocytosis (manual) POC Glucose (mg/dL) 26 L* 34 L* 42 L Blood Type Antibody Screen 05/31/18 12:22 WBC RBC Hgb Hct MCV MCH MCHC RDW Plt Count MPV Neut % (Auto) Lymph % (Auto) [place] % (Auto) Eos % (Auto) Baso % (Auto) Neut # (Auto) Lymph # (Auto) [place] # (Auto) Eos # (Auto) Baso # (Auto) Neutrophils % (Manual) Band Neutrophils % Lymphocytes % (Manual) Monocytes % (Manual) Eosinophils % (Manual) Platelet Estimate Hypochromasia (manual) Anisocytosis (manual) POC Glucose (mg/dL) 174 H Blood Type Antibody Screen Assessment & Plan (1) Anemia Assessment and Plan: multifactorial CKD, multiple myeloma ? treatment, chronic disease transfusion support Status: Acute (2) Myeloma Assessment and Plan: outpatient f/u and tx with Dr. Martinez Thank you for this interesting consult. Status: Acute
--- NOTE | 2018-05-31 15:31 | CP.PCM.PN ---
Subjective - Date & Time of Evaluation Date of Evaluation: 05/31/18 Time of Evaluation: 15:28 - Subjective Subjective: pt seen and examined had HD earlier, was transfused 2 units PRBC no SOB afebrile denies any CP or oSB no other complaints ROS- as per HPI, other than that 10 point ROS negative Objective - Vital Signs/Intake and Output Vital Signs (last 24 hours): Temp Pulse Resp BP Pulse Ox 100 F H 101 H 22 97/60 L 98 05/31/18 13:10 05/31/18 13:10 05/31/18 13:10 05/31/18 13:10 05/31/18 13:10 Intake and Output: 05/31/18 05/31/18 06:59 18:59 Intake Total 770 Balance 770 - Medications Medications: Current Medications Albuterol/Ipratropium (Duoneb 3 Mg/0.5 Mg (3 Ml) Ud) 3 ml IH Q6H [facility] Last Admin: 05/31/18 07:40 Dose: 3 ml Amiodarone HCl (Cordarone) 200 mg PO DAILY [facility] Last Admin: 05/31/18 09:10 Dose: Not Given Apixaban (Eliquis) 2.5 mg PO BID [facility] Last Admin: 05/30/18 17:30 Dose: 2.5 mg Budesonide (Pulmicort Respules) 1 mg IH BID [facility] Calcium Acetate (Phoslo) 667 mg PO TID [facility] Last Admin: 05/31/18 13:03 Dose: Not Given Docusate Sodium (Colace) 100 mg PO TID [facility] Last Admin: 05/31/18 13:02 Dose: Not Given Epoetin [place] (Procrit) 10,000 unit IV MWF [facility] Last Admin: 05/31/18 12:27 Dose: 10,000 unit Famotidine (Pepcid) 20 mg PO DAILY [facility] Last Admin: 05/31/18 09:10 Dose: Not Given Ferrous Sulfate (Feosol) 325 mg PO DAILY [facility] Last Admin: 05/31/18 09:10 Dose: Not Given Fluticasone/Vilanterol (Breo Ellipta 200-25 Mcg Inh) 1 puff INH DAILY [facility] Glipizide (Glucotrol) 10 mg PO ACBD [facility] Last Admin: 05/31/18 07:49 Dose: 10 mg Insulin Detemir (Levemir) 12 unit SC DAILY [facility] Last Admin: 05/31/18 10:52 Dose: Not Given Insulin Human Regular (Novolin R) 0 unit SC ACHS [facility]; Protocol Last Admin: 05/31/18 11:26 Dose: Not Given Ipratropium [place] (Atrovent) 0.5 mg IH RQ6 PRN PRN Reason: Shortness of Breath Levothyroxine Sodium (Synthroid) 75 mcg PO DAILY@0630 [facility] Last Admin: 05/31/18 05:55 Dose: 75 mcg Metoprolol Tartrate (Lopressor) 25 mg PO BID [facility] Last Admin: 05/31/18 09:10 Dose: Not Given Rosuvastatin Calcium (Crestor) 5 mg PO HS [facility] Last Admin: 05/30/18 21:36 Dose: 5 mg Tiotropium [place] (Spiriva) 18 mcg INH RQ24 [facility] Last Admin: 05/31/18 07:40 Dose: 18 mcg - Labs Labs: 05/31/18 07:30 05/30/18 08:12 - Constitutional Appears: Well, Non-toxic - Head Exam Head Exam: ATRAUMATIC, NORMOCEPHALIC - Eye Exam Eye Exam: EOMI, PERRL - ENT Exam ENT Exam: Mucous Membranes Moist - Neck Exam Neck Exam: absent: Lymphadenopathy - Respiratory Exam Respiratory Exam: Clear to Ausculation Bilateral. absent: Rhonchi, Wheezes - Cardiovascular Exam Cardiovascular Exam: REGULAR RHYTHM, +S1, +S2 - GI/Abdominal Exam GI & Abdominal Exam: Soft. absent: Distended, Tenderness - Extremities Exam Extremities Exam: absent: Joint Swelling, Pedal Edema - Neurological Exam Neurological Exam: Alert, Awake - Psychiatric Exam Psychiatric exam: Normal Affect, Normal Mood - Skin Skin Exam: Normal Color, Warm Assessment and Plan (1) Anemia Status: Acute (2) ESRD (end stage renal disease) on dialysis Status: Acute (3) Atrial fibrillation with controlled ventricular response Status: Acute (4) CHF (congestive heart failure) Status: Acute (5) COPD (chronic obstructive pulmonary disease) Status: Acute (6) Multiple myeloma Status: Acute - Assessment and Plan (Free Text) Plan: Anemia- ? related to myeloma now s/o 2 units PRBC feels good no active bleeding noted Next HD sunday stable renal sagastume continue aranesp with HD
[2018-05-31 16:45] LABS: FOLATE 13.3 ng/mL
--- NOTE | 2018-05-31 18:29 | CP.PCM.PN ---
Subjective - Date & Time of Evaluation Date of Evaluation: 05/31/18 Time of Evaluation: 07:45 - Subjective Subjective: clinically same Objective - Vital Signs/Intake and Output Vital Signs (last 24 hours): Temp Pulse Resp BP Pulse Ox 98.7 F 106 H 20 110/60 95 05/31/18 17:16 05/31/18 15:00 05/31/18 15:00 05/31/18 17:35 05/31/18 15:00 Intake and Output: 05/31/18 05/31/18 06:59 18:59 Intake Total 770 Balance 770 - Medications Medications: Current Medications Albuterol/Ipratropium (Duoneb 3 Mg/0.5 Mg (3 Ml) Ud) 3 ml IH Q6H [facility] Last Admin: 05/31/18 13:50 Dose: 3 ml Amiodarone HCl (Cordarone) 200 mg PO DAILY [facility] Last Admin: 05/31/18 09:10 Dose: Not Given Apixaban (Eliquis) 2.5 mg PO BID [facility] Last Admin: 05/30/18 17:30 Dose: 2.5 mg Budesonide (Pulmicort Respules) 1 mg IH BID [facility] Calcium Acetate (Phoslo) 667 mg PO TID [facility] Last Admin: 05/31/18 17:34 Dose: 667 mg Docusate Sodium (Colace) 100 mg PO TID [facility] Last Admin: 05/31/18 17:34 Dose: 100 mg Epoetin Eddie (Procrit) 10,000 unit IV MWF [facility] Last Admin: 05/31/18 12:27 Dose: 10,000 unit Famotidine (Pepcid) 20 mg PO DAILY [facility] Last Admin: 05/31/18 09:10 Dose: Not Given Ferrous Sulfate (Feosol) 325 mg PO DAILY [facility] Last Admin: 05/31/18 09:10 Dose: Not Given Fluticasone/Vilanterol (Breo Ellipta 200-25 Mcg Inh) 1 puff INH DAILY [facility] Glipizide (Glucotrol) 10 mg PO ACBD [facility] Last Admin: 05/31/18 17:30 Dose: 10 mg Insulin Detemir (Levemir) 12 unit SC DAILY [facility] Last Admin: 05/31/18 10:52 Dose: Not Given Insulin Human Regular (Novolin R) 0 unit SC [facility]; Protocol Last Admin: 05/31/18 16:44 Dose: Not Given Ipratropium [place] (Atrovent) 0.5 mg IH RQ6 PRN PRN Reason: Shortness of Breath Levothyroxine Sodium (Synthroid) 75 mcg PO DAILY@0630 [facility] Last Admin: 05/31/18 05:55 Dose: 75 mcg Metoprolol Tartrate (Lopressor) 25 mg PO BID [facility] Last Admin: 05/31/18 17:35 Dose: 25 mg Rosuvastatin Calcium (Crestor) 5 mg PO HS [facility] Last Admin: 05/30/18 21:36 Dose: 5 mg Tiotropium [place] (Spiriva) 18 mcg INH RQ24 [facility] Last Admin: 05/31/18 07:40 Dose: 18 mcg - Labs Labs: 05/31/18 07:30 05/30/18 08:12 - Constitutional Appears: Well - Head Exam Head Exam: ATRAUMATIC, NORMAL INSPECTION, NORMOCEPHALIC - Eye Exam Eye Exam: EOMI, Normal appearance, PERRL Pupil Exam: NORMAL ACCOMODATION, PERRL - ENT Exam ENT Exam: Mucous Membranes Moist, Normal Exam - Neck Exam Neck Exam: Full ROM, Normal Inspection. absent: Lymphadenopathy - Respiratory Exam Respiratory Exam: Decreased Breath Sounds - Cardiovascular Exam Cardiovascular Exam: REGULAR RHYTHM, +S1, +S2 - GI/Abdominal Exam GI & Abdominal Exam: Soft, Diminished Bowel Sounds - Rectal Exam Rectal Exam: Deferred
--- NOTE | 2018-05-31 20:00 | PCM.RRT ---
P[employer]CRETARY [employer]SEM[employer]ER Nurses Assessment - Situation Date: 05/31/18 Time POCKET SECRETARY ASSEMBLER was called: 19:50 POCKET SECRETARY ASSEMBLER Responder Arrival Time:: 19:51 [employer]OCKET SECRETARY ASSEMBLER Location:: 3T Med/Oncology Room Number: 361 - IV IV Inserted during POCKET SECRETARY ASSEMBLER?: No - Respiratory [employer]OCK[employer] SECRETARY ASSEMBLER Delivery Method: Nasal Cannula @L/min (5) - Diagnostic Test Ordered EKG: Yes Chest X-Ray: Yes - Stat Labs Ordered [employer]OCKET SECRETARY ASSEMBLER Stat Labs Ordered: TROPONIN [employer] SECRETARY ASSEMBLER Other Labs Ordered: vbg shock - Yelena Coma Scale Coma Scale Eye Opening: Spontaneous Coma Scale Motor: Obeys Commands Movement Coma Scale Verbal: Oriented Coma Scale Total: 15 - Constitutional Appears: No Acute Distress - Head Head Exam: ATRAUMATIC, NORMAL INSPECTION - Eyes Eye Exam: EOMI, Normal appearance - Cardiovascular Exam Cardiovascular Exam: Tachycardia, Irregular Rhythm - GI/Abdominal Exam GI & Abdominal Exam: Soft. absent: Tenderness - Neurological Exam Neurological Exam: Alert, Awake, CN II-XII Intact, Oriented x3 Plan - Assessment of Findings&Treatment Plan [employer]OCKET SECRETARY ASSEMBLER: pt diaphoretic cardizem 5 IVP/1min -HR still >140, BP coming up 100s/60s 2nd dose cardizem 5 IVP/1min -HR 150s BP 116/80s 3rd time: Digoxin 0.25 IVP as per ICU recs HR came down to 90s, BP 106/91
[2018-05-31 20:25] LABS: VENOUS BLOOD GAS BASE EXCESS 10.4 mmol/L (0.0-2.0); VENOUS BLOOD GAS PCO2 49 mmHg (40-60); VENOUS BLOOD GAS PO2 23 mm/Hg (30-55); VENOUS BLOOD PH 7.47 (7.32-7.43)
[2018-05-31] MEDS ORDERED: Digoxin 500 mcg/2ml (0.5 mg/2ml) Inj ONE (20:42)
[2018-06-01] MEDS: Albuterol-Ipratrop 3 mg / 0.5 (3 ml) UD IH SCH ×2 (02:56→09:33)
[2018-06-01] MEDS: Levothyroxine 75 MCG TAB PO SCH (06:18)
[2018-06-01] MEDS: (Novolin R) Insulin Human Regular 100 units/ml vial SC SCH ×4 (07:45→21:55)
--- NOTE | 2018-06-01 08:49 | CP.PCM.PN ---
Subjective - Date & Time of Evaluation Date of Evaluation: 06/01/18 Time of Evaluation: 08:46 - Subjective Subjective: pt seen and examined events noted [employer] last night for A fib with RVR was given iv Cardizem and digoxin , pt already on amiodarone no SOB at present HR- 99 no repeat CBC after transfusion ROS- as Per hpi, other than that 10 point ros negative Objective - Vital Signs/Intake and Output Vital Signs (last 24 hours): Temp Pulse Resp BP Pulse Ox 99.4 F 99 H 18 109/55 L 96 06/01/18 07:00 06/01/18 07:40 06/01/18 07:00 06/01/18 07:00 06/01/18 07:00 Intake and Output: 06/01/18 06/01/18 06:59 18:59 Intake Total 120 Balance 120 - Medications Medications: Current Medications Albuterol/Ipratropium (Duoneb 3 Mg/0.5 Mg (3 Ml) Ud) 3 ml IH Q6H [facility] Last Admin: 06/01/18 02:56 Dose: Not Given Amiodarone HCl (Cordarone) 200 mg PO DAILY [facility] Last Admin: 05/31/18 09:10 Dose: Not Given Apixaban (Eliquis) 2.5 mg PO BID [facility] Last Admin: 05/30/18 17:30 Dose: 2.5 mg Budesonide (Pulmicort Respules) 1 mg IH BID [facility] Calcium Acetate (Phoslo) 667 mg PO TID [facility] Last Admin: 05/31/18 17:34 Dose: 667 mg Docusate Sodium (Colace) 100 mg PO TID [facility] Last Admin: 05/31/18 17:34 Dose: 100 mg Epoetin Eddie (Procrit) 10,000 unit IV MWF [facility] Last Admin: 05/31/18 12:27 Dose: 10,000 unit Famotidine (Pepcid) 20 mg PO DAILY [facility] Last Admin: 05/31/18 09:10 Dose: Not Given Ferrous Sulfate (Feosol) 325 mg PO DAILY [facility] Last Admin: 05/31/18 09:10 Dose: Not Given Fluticasone/Vilanterol (Breo Ellipta 200-25 Mcg Inh) 1 puff INH DAILY [facility] Glipizide (Glucotrol) 10 mg PO ACBD [facility] Last Admin: 05/31/18 17:30 Dose: 10 mg Insulin Detemir (Levemir) 12 unit SC DAILY [facility] Last Admin: 05/31/18 10:52 Dose: Not Given Insulin Human Regular (Novolin R) 0 unit SC ACHS [facility]; Protocol Last Admin: 06/01/18 07:45 Dose: Not Given Ipratropium [place] (Atrovent) 0.5 mg IH RQ6 PRN PRN Reason: Shortness of Breath Levothyroxine Sodium (Synthroid) 75 mcg PO DAILY@0630 [facility] Last Admin: 06/01/18 06:18 Dose: 75 mcg Metoprolol Tartrate (Lopressor) 25 mg PO BID [facility] Last Admin: 05/31/18 17:35 Dose: 25 mg Rosuvastatin Calcium (Crestor) 5 mg PO HS [facility] Last Admin: 05/31/18 23:02 Dose: 5 mg Tiotropium [place] (Spiriva) 18 mcg INH RQ24 [facility] Last Admin: 05/31/18 07:40 Dose: 18 mcg - Labs Labs: 05/31/18 07:30 05/30/18 08:12 - Constitutional Appears: Non-toxic, No Acute Distress - Head Exam Head Exam: ATRAUMATIC, NORMOCEPHALIC - Eye Exam Eye Exam: EOMI, PERRL - ENT Exam ENT Exam: Mucous Membranes Moist - Neck Exam Neck Exam: Full ROM - Respiratory Exam Respiratory Exam: Clear to Ausculation Bilateral. absent: Rhonchi, Wheezes - Cardiovascular Exam Cardiovascular Exam: Irregular Rhythm, +S1, +S2 - GI/Abdominal Exam GI & Abdominal Exam: Soft. absent: Distended, Tenderness - Extremities Exam Extremities Exam: Full ROM. absent: Pedal Edema - Neurological Exam Neurological Exam: Alert, Awake, Oriented x3 - Psychiatric Exam Psychiatric exam: Normal Affect, Normal Mood - Skin Skin Exam: Normal Color, Warm Assessment and Plan (1) Anemia Status: Acute (2) ESRD (end stage renal disease) on dialysis Status: Acute (3) Atrial fibrillation with controlled ventricular response Status: Acute (4) CHF (congestive heart failure) Status: Acute (5) COPD (chronic obstructive pulmonary disease) Status: Acute (6) Multiple myeloma Status: Acute - Assessment and Plan (Free Text) Plan: HD sunday maintain MWF schedule check CBC cardiology evaluation
[2018-06-01] MEDS: Insulin Detemir 100 units/ml Vial (Levemir) SC SCH ×2 (09:07→09:11)
[2018-06-01 09:27] LABS: MEAN CORPUSCULAR HEMOGLOBIN 28.8 pg (27.0-31.0); MEAN PLATELET VOLUME 9.6 fL (7.2-11.7); RBC 3.77 Mil/uL (3.80-5.20); WHITE BLOOD COUNT 15.3 K/uL (4.8-10.8)
[2018-06-01 09:29] LABS: HEMOGLOBIN 10.9 g/dL (11.0-16.0)
[2018-06-01] MEDS: Tiotropium 18 mcg Cap For Inhalation INH SCH (09:33)
[2018-06-01] MEDS: Moxifloxacin IV 400mg/250ml NS 400 MG/250 ML BAG IVPB SCH (11:11)
[2018-06-01] MEDS: guaiFENesin 100 mg/5 ml Syrup UD PO PRN ×2 (11:11→19:29)
[2018-06-01] MEDS ORDERED: Albuterol-Ipratrop 3 mg / 0.5 (3 ml) UD INH SCH (12:00)
--- NOTE | 2018-06-01 13:23 | RAD ---
Date of service: 05/31/2018 HISTORY: tachy s/p dialysis COMPARISON: Comparison is made with 05/29/2018 FINDINGS: LUNGS: No significant interval changes PLEURA: No significant pleural effusion identified, no pneumothorax apparent. CARDIOVASCULAR: There is aortic atherosclerotic calcification present. Normal cardiac size. Left-sided Infusaport is seen in place OSSEOUS STRUCTURES: No significant abnormalities. VISUALIZED UPPER ABDOMEN: Normal. OTHER FINDINGS: None. IMPRESSION: No significant interval changes since the prior study.
--- NOTE | 2018-06-01 14:03 | CP.PCM.CON ---
History of Present Illness - History of Present Illness History of Present Illness: 83 year old female with PMHc of COPD, CHF, ESRD on dialysis, diabetes, afib, anemia, hypothyroidism, and multiple myeloma sent from [place] for hemoglobin of 6.8. Denies any complaints, cough, abdominal pain, difficulty breathing. She st ill makes a small amount of urine and has had no difficulty with it. denies any blood in stools, no hematemesis, no other bleeding Review of Systems - Review of Systems All systems: reviewed and no additional remarkable complaints except (as mentioned in HPI) Past Patient History - Infectious Disease Hx of Infectious Diseases: None - Past Medical History & Family History Past Medical History?: Yes - Past Social History Smoking Status: Former Smoker - CARDIAC Hx Congestive Heart Failure: Yes Hx Hypercholesterolemia: Yes Hx Hypertension: Yes - PULMONARY Hx Chronic Obstructive Pulmonary Disease (COPD): Yes - NEUROLOGICAL Hx Neurological Disorder: No - HEENT Hx HEENT Problems: Yes Hx Cataracts: Yes (bilateral) - RENAL Hx Chronic Kidney Disease: Yes - ENDOCRINE/METABOLIC Hx Hypothyroidism: Yes - HEMATOLOGICAL/ONCOLOGICAL Hx Anemia: Yes - INTEGUMENTARY Hx Dermatological Problems: No - MUSCULOSKELETAL/RHEUMATOLOGICAL Hx Arthritis: Yes - GASTROINTESTINAL Hx Gastrointestinal Disorders: Yes Hx Hemorrhoids: Yes - GENITOURINARY/GYNECOLOGICAL Hx Genitourinary Disorders: No - PSYCHIATRIC Hx Substance Use: No - SURGICAL HISTORY Hx Surgeries: Yes Hx Arteriovenous Shunt: Yes (LEFT ARM AV ,permacath) Hx Vascular Access Device: Yes (perma cath elaina cath) - ANESTHESIA Hx Anesthesia: Yes Hx Anesthesia Reactions: No Hx Malignant Hyperthermia: No Meds Allergies/Adverse Reactions: Allergies Allergy/AdvReac Type Severity Reaction Status Date / Time No Known Allergies Allergy Verified 05/29/18 21:28 - Medications Medications: Current Medications Amiodarone HCl (Cordarone) 200 mg PO DAILY [facility] Last Admin: 06/01/18 10:25 Dose: Not Given Apixaban (Eliquis) 2.5 mg PO BID [facility] Last Admin: 05/30/18 17:30 Dose: 2.5 mg Budesonide (Pulmicort Respules) 1 mg IH BID [facility] Calcium Acetate (Phoslo) 667 mg PO TID [facility] Last Admin: 06/01/18 13:09 Dose: 667 mg Docusate Sodium (Colace) 100 mg PO TID [facility] Last Admin: 06/01/18 13:09 Dose: 100 mg Epoetin Eddie (Procrit) 10,000 unit IV MWF [facility] Last Admin: 05/31/18 12:27 Dose: 10,000 unit Famotidine (Pepcid) 20 mg PO DAILY [facility] Last Admin: 06/01/18 09:07 Dose: 20 mg Ferrous Sulfate (Feosol) 325 mg PO DAILY [facility] Last Admin: 06/01/18 09:06 Dose: 325 mg Fluticasone/Vilanterol (Breo Ellipta 200-25 Mcg Inh) 1 puff INH DAILY [facility] Glipizide (Glucotrol) 10 mg PO ACBD [facility] Last Admin: 06/01/18 08:30 Dose: 10 mg Guaifenesin (Robitussin) 100 mg PO Q4H PRN PRN Reason: Cough Last Admin: 06/01/18 11:11 Dose: 100 mg Moxifloxacin HCl (Avelox Iv 400mg/250ml Ns) 400 mg in 250 mls @ 167 mls/hr IVPB Q24H [facility]; Protocol Last Admin: 06/01/18 11:11 Dose: 167 mls/hr Insulin Detemir (Levemir) 12 unit SC DAILY [facility] Last Admin: 06/01/18 09:11 Dose: Not Given Insulin Human Regular (Novolin R) 0 unit SC ACHS [facility]; Protocol Last Admin: 06/01/18 12:25 Dose: 6 units Ipratropium [place] (Atrovent) 0.5 mg IH RQ6 PRN PRN Reason: Shortness of Breath Levothyroxine Sodium (Synthroid) 75 mcg PO DAILY@0630 [facility] Last Admin: 06/01/18 06:18 Dose: 75 mcg Metoprolol Tartrate (Lopressor) 25 mg PO BID [facility] Last Admin: 06/01/18 09:08 Dose: 25 mg Rosuvastatin Calcium (Crestor) 5 mg PO HS [facility] Last Admin: 05/31/18 23:02 Dose: 5 mg Tiotropium [place] (Spiriva) 18 mcg INH RQ24 [facility] Last Admin: 06/01/18 09:33 Dose: Not Given Physical Exam - Head Exam Head Exam: NORMAL INSPECTION - Eye Exam Eye Exam: Normal appearance - ENT Exam ENT Exam: Mucous Membranes Moist - Respiratory Exam Respiratory Exam: Decreased Breath Sounds - Cardiovascular Exam Cardiovascular Exam: REGULAR RHYTHM, +S1, +S2 - GI/Abdominal Exam GI & Abdominal Exam: Normal Bowel Sounds, Soft - Extremities Exam Extremities exam: Positive for: normal inspection Results - Vital Signs Recent Vital Signs: Last Vital Signs Temp 99.4 F 06/01/18 07:00 Pulse 79 06/01/18 11:56 Resp 18 06/01/18 07:00 BP 101/61 06/01/18 09:09 Pulse Ox 96 06/01/18 07:00 - Labs Result Diagrams: 06/01/18 09:18 05/30/18 08:12 Labs: Laboratory Results - last 24 hr 05/31/18 05/31/18 05/31/18 14:01 14:05 14:05 WBC RBC Hgb Hct MCV MCH MCHC RDW Plt Count MPV Retic Count 2.4 H D pO2 VBG pH VBG pCO2 VBG HCO3 VBG Total CO2 VBG O2 Sat (Calc) VBG Base Excess VBG Potassium Sodium Chloride Glucose Lactate FiO2 POC Glucose (mg/dL) 149 H Lactic Acid Ferritin 3480.0 Troponin I Vitamin B12 711 Folate 13.3 Venous Blood Potassium Stool Occult Blood 05/31/18 05/31/18 05/31/18 16:20 17:12 17:50 WBC RBC Hgb Hct MCV MCH MCHC RDW Plt Count MPV Retic Count pO2 VBG pH VBG pCO2 VBG HCO3 VBG Total CO2 VBG O2 Sat (Calc) VBG Base Excess VBG Potassium Sodium Chloride Glucose Lactate FiO2 POC Glucose (mg/dL) 110 225 H Lactic Acid Ferritin Troponin I 0.0450 Vitamin B12 Folate Venous Blood Potassium Stool Occult Blood 05/31/18 05/31/18 06/01/18 20:20 20:56 00:51 WBC RBC Hgb Hct MCV MCH MCHC RDW Plt Count MPV Retic Count pO2 23 L VBG pH 7.47 H VBG pCO2 49 VBG HCO3 31.6 VBG Total CO2 37.2 H VBG O2 Sat (Calc) 62.0 VBG Base Excess 10.4 H VBG Potassium 3.7 Sodium 141.0 Chloride 102.0 Glucose 123 H Lactate 2.7 H FiO2 21.0 POC Glucose (mg/dL) 262 H Lactic Acid 1.4 Ferritin Troponin I Vitamin B12 Folate Venous Blood Potassium 3.7 Stool Occult Blood 06/01/18 06/01/18 06/01/18 06:24 09:18 11:03 WBC 15.3 H RBC 3.77 L Hgb 10.9 L D Hct 34.0 MCV 90.0 D MCH 28.8 MCHC 32.0 L RDW 16.0 H Plt Count 365 MPV 9.6 Retic Count pO2 VBG pH VBG pCO2 VBG HCO3 VBG Total CO2 VBG O2 Sat (Calc) VBG Base Excess VBG Potassium Sodium Chloride Glucose Lactate FiO2 POC Glucose (mg/dL) 130 H 302 H Lactic Acid Ferritin Troponin I Vitamin B12 Folate Venous Blood Potassium Stool Occult Blood 06/01/18 11:31 WBC RBC Hgb Hct MCV MCH MCHC RDW Plt Count MPV Retic Count pO2 VBG pH VBG pCO2 VBG HCO3 VBG Total CO2 VBG O2 Sat (Calc) VBG Base Excess VBG Potassium Sodium Chloride Glucose Lactate FiO2 POC Glucose (mg/dL) Lactic Acid Ferritin Troponin I Vitamin B12 Folate Venous Blood Potassium Stool Occult Blood Positive H Assessment & Plan (1) Anemia Status: Acute (2) ESRD (end stage renal disease) on dialysis Status: Acute (3) COPD (chronic obstructive pulmonary disease) Status: Acute - Assessment and Plan (Free Text) Plan: Breo Ellipta Spiriva Bronchodilators HD as per schedule Follow CBC DVT/GI prophalaxis
--- NOTE | 2018-06-01 14:58 | CP.PCM.CON ---
History of Present Illness - History of Present Illness History of Present Illness: 83 y/o female with PMHx of COPD, CHF, ESRD on HD MWF, DM, paroxysmal Afib, anemia, MM s/p chemo, and hypothyroidism presents after a 2-3 week period in rehab recovering from acute URI/bronchitis --> went to HD found to be anemic in HD and referred for admission Blood transfusion....SHERIFFS DETECTIVE was called after she developed, SOB due AFIB with RVR. She was recently admitted to [facility] Mid april 2018 with hx of SOB x 7 days. At that As the patient was hypotensive, HR rapid and refractory to medication, the patient underwent elective, emergent cardioversion. She received 75 joules then 200 joules of synchronized shock and converted to normal sinus. > Pt had been on amiodarone a few years ago. She has also been on eliquis: anemia w/u has been attributed to MM she was also hospitalized 04/14/18-04/19/18 on this service for COPD exacerbation. She was d/prasanna with medrol dose pack and aveloxand also treated for fluid overloa d with dialysis Cardiac HX: AFIB, no AR or CVA Activity: mildly active: limited by age Review of Systems - Review of Systems All systems: reviewed and no additional remarkable complaints except Past Patient History - Infectious Disease Hx of Infectious Diseases: None - Past Medical History & Family History Past Medical History?: Yes - Past Social History Smoking Status: Former Smoker - CARDIAC Hx Congestive Heart Failure: Yes Hx Hypercholesterolemia: Yes Hx Hypertension: Yes - PULMONARY Hx Chronic Obstructive Pulmonary Disease (COPD): Yes - NEUROLOGICAL Hx Neurological Disorder: No - HEENT Hx HEENT Problems: Yes Hx Cataracts: Yes (bilateral) - RENAL Hx Chronic Kidney Disease: Yes - ENDOCRINE/METABOLIC Hx Hypothyroidism: Yes - HEMATOLOGICAL/ONCOLOGICAL Hx Anemia: Yes - INTEGUMENTARY Hx Dermatological Problems: No - MUSCULOSKELETAL/RHEUMATOLOGICAL Hx Arthritis: Yes - GASTROINTESTINAL Hx Gastrointestinal Disorders: Yes Hx Hemorrhoids: Yes - GENITOURINARY/GYNECOLOGICAL Hx Genitourinary Disorders: No - PSYCHIATRIC Hx Substance Use: No - SURGICAL HISTORY Hx Surgeries: Yes Hx Arteriovenous Shunt: Yes (LEFT ARM AV ,permacath) Hx Vascular Access Device: Yes (perma cath elaina cath) - ANESTHESIA Hx Anesthesia: Yes Hx Anesthesia Reactions: No Hx Malignant Hyperthermia: No Meds Allergies/Adverse Reactions: Allergies Allergy/AdvReac Type Severity Reaction Status Date / Time No Known Allergies Allergy Verified 05/29/18 21:28 - Medications Medications: Current Medications Amiodarone HCl (Cordarone) 200 mg PO DAILY [facility] Last Admin: 06/01/18 10:25 Dose: Not Given Apixaban (Eliquis) 2.5 mg PO BID [facility] Last Admin: 05/30/18 17:30 Dose: 2.5 mg Budesonide (Pulmicort Respules) 1 mg IH BID [facility] Calcium Acetate (Phoslo) 667 mg PO TID [facility] Last Admin: 06/01/18 13:09 Dose: 667 mg Docusate Sodium (Colace) 100 mg PO TID [facility] Last Admin: 06/01/18 13:09 Dose: 100 mg Epoetin [place] (Procrit) 10,000 unit IV MWF [facility] Last Admin: 05/31/18 12:27 Dose: 10,000 unit Famotidine (Pepcid) 20 mg PO DAILY [facility] Last Admin: 06/01/18 09:07 Dose: 20 mg Ferrous Sulfate (Feosol) 325 mg PO DAILY [facility] Last Admin: 06/01/18 09:06 Dose: 325 mg Fluticasone/Vilanterol (Breo Ellipta 200-25 Mcg Inh) 1 puff INH DAILY [facility] Glipizide (Glucotrol) 10 mg PO ACBD [facility] Last Admin: 06/01/18 08:30 Dose: 10 mg Guaifenesin (Robitussin) 100 mg PO Q4H PRN PRN Reason: Cough Last Admin: 06/01/18 11:11 Dose: 100 mg Moxifloxacin HCl (Avelox Iv 400mg/250ml Ns) 400 mg in 250 mls @ 167 mls/hr IVPB Q24H [facility]; Protocol Last Admin: 06/01/18 11:11 Dose: 167 mls/hr Insulin Detemir (Levemir) 12 unit SC DAILY [facility] Last Admin: 06/01/18 09:11 Dose: Not Given Insulin Human Regular (Novolin R) 0 unit SC ACHS [facility]; Protocol Last Admin: 06/01/18 12:25 Dose: 6 units Ipratropium [place] (Atrovent) 0.5 mg IH RQ6 PRN PRN Reason: Shortness of Breath Levothyroxine Sodium (Synthroid) 75 mcg PO DAILY@0630 [facility] Last Admin: 06/01/18 06:18 Dose: 75 mcg Metoprolol Tartrate (Lopressor) 25 mg PO BID [facility] Last Admin: 06/01/18 09:08 Dose: 25 mg Rosuvastatin Calcium (Crestor) 5 mg PO HS [facility] Last Admin: 05/31/18 23:02 Dose: 5 mg Tiotropium [place] (Spiriva) 18 mcg INH RQ24 [facility] Last Admin: 06/01/18 09:33 Dose: Not Given Physical Exam - Constitutional Appears: No Acute Distress - Head Exam Head Exam: ATRAUMATIC, NORMAL INSPECTION, NORMOCEPHALIC - Eye Exam Eye Exam: EOMI, Normal appearance. absent: Scleral icterus - ENT Exam ENT Exam: Mucous Membranes Moist, Normal Oropharynx - Neck Exam Neck exam: Positive for: Full Rom, Normal Inspection. Negative for: Tenderness - Respiratory Exam Respiratory Exam: Rhonchi, NORMAL BREATHING PATTERN. absent: Chest Wall Tenderness, Rales, Wheezes, Stridor - Cardiovascular Exam Cardiovascular Exam: REGULAR RHYTHM, +S1, +S2. absent: +S4, Systolic Murmur - GI/Abdominal Exam GI & Abdominal Exam: Normal Bowel Sounds, Soft. absent: Tenderness - Extremities Exam Extremities exam: Positive for: normal inspection, pedal pulses present. Nega tive for: calf tenderness, pedal edema - Neurological Exam Neurological exam: Alert, Oriented x3 - Psychiatric Exam Psychiatric exam: Normal Affect, Normal Mood - Skin Skin Exam: Normal Color (scattered echymosis), Warm Results - Vital Signs Recent Vital Signs: Last Vital Signs Temp 99.4 F 06/01/18 07:00 Pulse 79 06/01/18 11:56 Resp 18 06/01/18 07:00 BP 101/61 06/01/18 09:09 Pulse Ox 96 06/01/18 07:00 - Labs Result Diagrams: 06/01/18 09:18 05/30/18 08:12 Labs: Laboratory Results - last 24 hr 05/31/18 05/31/18 05/31/18 14:05 16:20 17:12 WBC RBC Hgb Hct MCV MCH MCHC RDW Plt Count MPV pO2 VBG pH VBG pCO2 VBG HCO3 VBG Total CO2 VBG O2 Sat (Calc) VBG Base Excess VBG Potassium Sodium Chloride Glucose Lactate FiO2 POC Glucose (mg/dL) 110 225 H Lactic Acid Ferritin 3480.0 Troponin I Vitamin B12 711 Folate 13.3 Venous Blood Potassium Stool Occult Blood 05/31/18 05/31/18 05/31/18 17:50 20:20 20:56 WBC RBC Hgb Hct MCV MCH MCHC RDW Plt Count MPV pO2 23 L VBG pH 7.47 H VBG pCO2 49 VBG HCO3 31.6 VBG Total CO2 37.2 H VBG O2 Sat (Calc) 62.0 VBG Base Excess 10.4 H VBG Potassium 3.7 Sodium 141.0 Chloride 102.0 Glucose 123 H Lactate 2.7 H FiO2 21.0 POC Glucose (mg/dL) 262 H Lactic Acid Ferritin Troponin I 0.0450 Vitamin B12 Folate Venous Blood Potassium 3.7 Stool Occult Blood 06/01/18 06/01/18 06/01/18 00:51 06:24 09:18 WBC 15.3 H RBC 3.77 L Hgb 10.9 L D Hct 34.0 MCV 90.0 D MCH 28.8 MCHC 32.0 L RDW 16.0 H Plt Count 365 MPV 9.6 pO2 VBG pH VBG pCO2 VBG HCO3 VBG Total CO2 VBG O2 Sat (Calc) VBG Base Excess VBG Potassium Sodium Chloride Glucose Lactate FiO2 POC Glucose (mg/dL) 130 H Lactic Acid 1.4 Ferritin Troponin I Vitamin B12 Folate Venous Blood Potassium Stool Occult Blood 06/01/18 06/01/18 11:03 11:31 WBC RBC Hgb Hct MCV MCH MCHC RDW Plt Count MPV pO2 VBG pH VBG pCO2 VBG HCO3 VBG Total CO2 VBG O2 Sat (Calc) VBG Base Excess VBG Potassium Sodium Chloride Glucose Lactate FiO2 POC Glucose (mg/dL) 302 H Lactic Acid Ferritin Troponin I Vitamin B12 Folate Venous Blood Potassium Stool Occult Blood Positive H - EKG Data EKG Interpreted by: Myself Assessment & Plan - Assessment and Plan (Free Text) Assessment: 83 y/o with parox AFIB: SHERIFFS DETECTIVE called after AFIB RVR Severe anemia s/p 2 units PRBCs H/H 6.9 > 10.3 acute on chronic COPD/bronchitis on Rx improving > Hx of elective cardioversion due to AFIB and hypotension mid April 2018 EKG ordered and repeated by me today 06/01/18: NSR, no acute ischemic changes CXR: atelectasis, possible infiltrate ECHO 04/14/18: Images directly viewedby me: Normal LVEF and wall motion, LVH, diastolic dysfunction, mild-mod MR, mild-mod pulm HTN Patient is now back in NSR: she is tolerating amiodarone 200daily and lopressor 25 BID BP is normal Plan: Cont amiodarone and lopressor If H/H remains stable and no concern for acute blood loss: resume eliquis 2.5 BID for stroke risk reduction as [id number]= 3+ Future options for AFIB including ablation, PPM with AVN ablation have been discussed with family and patient and they prefer a conservative non-invasive approach for now. cont PULM supportive care for acute bronchitis: still active ESRD: cont HD via L. forarm AVF/graft -> monitor lytes MM: RX per HEME/ONC: monitor H/H
--- NOTE | 2018-06-01 18:22 | CP.PCM.PN ---
Subjective - Date & Time of Evaluation Date of Evaluation: 06/01/18 Time of Evaluation: 09:00 - Subjective Subjective: clinically same Objective - Vital Signs/Intake and Output Vital Signs (last 24 hours): Temp Pulse Resp BP Pulse Ox 99.3 F 77 18 117/61 96 06/01/18 15:00 06/01/18 16:05 06/01/18 15:00 06/01/18 15:00 06/01/18 15:00 Intake and Output: 06/01/18 06/01/18 06:59 18:59 Intake Total 120 Balance 120 - Medications Medications: Current Medications Amiodarone HCl (Cordarone) 200 mg PO DAILY [facility] Last Admin: 06/01/18 10:25 Dose: Not Given Apixaban (Eliquis) 2.5 mg PO BID [facility] Last Admin: 05/30/18 17:30 Dose: 2.5 mg Budesonide (Pulmicort Respules) 1 mg IH BID [facility] Calcium Acetate (Phoslo) 667 mg PO TID [facility] Last Admin: 06/01/18 13:09 Dose: 667 mg Docusate Sodium (Colace) 100 mg PO TID [facility] Last Admin: 06/01/18 13:09 Dose: 100 mg Epoetin Eddie (Procrit) 10,000 unit IV MWF [facility] Last Admin: 05/31/18 12:27 Dose: 10,000 unit Famotidine (Pepcid) 20 mg PO DAILY [facility] Last Admin: 06/01/18 09:07 Dose: 20 mg Ferrous Sulfate (Feosol) 325 mg PO DAILY [facility] Last Admin: 06/01/18 09:06 Dose: 325 mg Fluticasone/Vilanterol (Breo Ellipta 200-25 Mcg Inh) 1 puff INH DAILY [facility] Glipizide (Glucotrol) 10 mg PO ACBD [facility] Last Admin: 06/01/18 17:16 Dose: Not Given Guaifenesin (Robitussin) 100 mg PO Q4H PRN PRN Reason: Cough Last Admin: 06/01/18 11:11 Dose: 100 mg Moxifloxacin HCl (Avelox Iv 400mg/250ml Ns) 400 mg in 250 mls @ 167 mls/hr IVPB Q24H [facility]; Protocol Last Admin: 06/01/18 11:11 Dose: 167 mls/hr Insulin Detemir (Levemir) 12 unit SC DAILY [facility] Last Admin: 06/01/18 09:11 Dose: Not Given Insulin Human Regular (Novolin R) 0 unit SC ACHS [facility]; Protocol Last Admin: 06/01/18 17:17 Dose: Not Given Ipratropium [place] (Atrovent) 0.5 mg IH RQ6 PRN PRN Reason: Shortness of Breath Levothyroxine Sodium (Synthroid) 75 mcg PO DAILY@0630 [facility] Last Admin: 06/01/18 06:18 Dose: 75 mcg Metoprolol Tartrate (Lopressor) 25 mg PO BID [facility] Last Admin: 06/01/18 09:08 Dose: 25 mg Rosuvastatin Calcium (Crestor) 5 mg PO HS [facility] Last Admin: 05/31/18 23:02 Dose: 5 mg Tiotropium [place] (Spiriva) 18 mcg INH RQ24 [facility] Last Admin: 06/01/18 09:33 Dose: Not Given - Labs Labs: 06/01/18 09:18 05/30/18 08:12 - Constitutional Appears: Well - Head Exam Head Exam: ATRAUMATIC, NORMAL INSPECTION, NORMOCEPHALIC - Eye Exam Eye Exam: EOMI, Normal appearance, PERRL Pupil Exam: NORMAL ACCOMODATION, PERRL - ENT Exam ENT Exam: Mucous Membranes Moist, Normal Exam - Neck Exam Neck Exam: Full ROM, Normal Inspection. absent: Lymphadenopathy - Respiratory Exam Respiratory Exam: Decreased Breath Sounds - Cardiovascular Exam Cardiovascular Exam: REGULAR RHYTHM, +S1, +S2 - GI/Abdominal Exam GI & Abdominal Exam: Soft, Diminished Bowel Sounds - Rectal Exam Rectal Exam: Deferred
[2018-06-01] MEDS ORDERED: Dextrose 50% SYRINGE Inj (50 ml) IV ONE (21:30)
[2018-06-01] MEDS ORDERED: Dextrose 50% VIAL Inj (50 ml) IV ONE (21:45)
[2018-06-02] MEDS: Levothyroxine 75 MCG TAB PO SCH (05:43)
[2018-06-02] MEDS: (Novolin R) Insulin Human Regular 100 units/ml vial SC SCH ×4 (07:06→21:37)
[2018-06-02] MEDS: Tiotropium 18 mcg Cap For Inhalation INH SCH (08:26)
[2018-06-02] MEDS: guaiFENesin 100 mg/5 ml Syrup UD PO PRN ×3 (09:35→21:54)
[2018-06-02] MEDS: Insulin Detemir 100 units/ml Vial (Levemir) SC SCH (09:36)
[2018-06-02] MEDS: Moxifloxacin IV 400mg/250ml NS 400 MG/250 ML BAG IVPB SCH (10:15)
--- NOTE | 2018-06-02 12:53 | CP.PCM.PN ---
Subjective - Date & Time of Evaluation Date of Evaluation: 06/02/18 Time of Evaluation: 09:00 - Subjective Subjective: clinically same Objective - Vital Signs/Intake and Output Vital Signs (last 24 hours): Temp Pulse Resp BP Pulse Ox 97.6 F 80 20 100/51 L 98 06/02/18 07:00 06/02/18 12:00 06/02/18 07:00 06/02/18 09:37 06/02/18 07:00 - Medications Medications: Current Medications Amiodarone HCl (Cordarone) 200 mg PO DAILY [facility] Last Admin: 06/02/18 10:12 Dose: 200 mg Apixaban (Eliquis) 2.5 mg PO BID [facility] Last Admin: 06/02/18 09:35 Dose: 2.5 mg Budesonide (Pulmicort Respules) 1 mg IH BID [facility] Calcium Acetate (Phoslo) 667 mg PO TID [facility] Last Admin: 06/02/18 09:35 Dose: 667 mg Docusate Sodium (Colace) 100 mg PO TID [facility] Last Admin: 06/02/18 09:35 Dose: 100 mg Epoetin Eddie (Procrit) 10,000 unit IV MWF [facility] Last Admin: 05/31/18 12:27 Dose: 10,000 unit Famotidine (Pepcid) 20 mg PO DAILY [facility] Last Admin: 06/02/18 09:35 Dose: 20 mg Ferrous Sulfate (Feosol) 325 mg PO DAILY [facility] Last Admin: 06/02/18 09:35 Dose: 325 mg Fluticasone/Vilanterol (Breo Ellipta 200-25 Mcg Inh) 1 puff INH DAILY [facility] Glipizide (Glucotrol) 10 mg PO ACBD [facility] Last Admin: 06/02/18 07:30 Dose: Not Given Guaifenesin (Robitussin) 100 mg PO Q4H PRN PRN Reason: Cough Last Admin: 06/02/18 09:35 Dose: 100 mg Moxifloxacin HCl (Avelox Iv 400mg/250ml Ns) 400 mg in 250 mls @ 167 mls/hr IVPB Q24H [facility]; Protocol Last Admin: 06/02/18 10:15 Dose: 167 mls/hr Insulin Detemir (Levemir) 12 unit SC DAILY [facility] Last Admin: 02/17/19 09:36 Dose: Not Given Insulin Human Regular (Novolin R) 0 unit SC ACHS [facility]; Protocol Last Admin: 06/02/18 07:06 Dose: Not Given Ipratropium [place] (Atrovent) 0.5 mg IH RQ6 PRN PRN Reason: Shortness of Breath Levothyroxine Sodium (Synthroid) 75 mcg PO DAILY@0630 [facility] Last Admin: 06/02/18 05:43 Dose: 75 mcg Metoprolol Tartrate (Lopressor) 25 mg PO BID [facility] Last Admin: 06/02/18 10:20 Dose: Not Given Rosuvastatin Calcium (Crestor) 5 mg PO HS [facility] Last Admin: 06/01/18 21:48 Dose: 5 mg Tiotropium [place] (Spiriva) 18 mcg INH RQ24 [facility] Last Admin: 06/02/18 08:26 Dose: Not Given - Labs Labs: 06/01/18 09:18 05/30/18 08:12 - Constitutional Appears: Well - Head Exam Head Exam: ATRAUMATIC, NORMAL INSPECTION, NORMOCEPHALIC - Eye Exam Eye Exam: EOMI, Normal appearance, PERRL Pupil Exam: NORMAL ACCOMODATION, PERRL - ENT Exam ENT Exam: Mucous Membranes Moist, Normal Exam - Neck Exam Neck Exam: Full ROM, Normal Inspection. absent: Lymphadenopathy - Respiratory Exam Respiratory Exam: Decreased Breath Sounds - Cardiovascular Exam Cardiovascular Exam: REGULAR RHYTHM, +S1, +S2 - GI/Abdominal Exam GI & Abdominal Exam: Soft, Diminished Bowel Sounds - Rectal Exam Rectal Exam: Deferred
--- NOTE | 2018-06-02 13:19 | CP.PCM.PN ---
Subjective - Date & Time of Evaluation Date of Evaluation: 06/02/18 Time of Evaluation: 13:18 - Subjective Subjective: Pt is seen and examined No events overnight Reports mild cough Objective - Vital Signs/Intake and Output Vital Signs (last 24 hours): Temp Pulse Resp BP Pulse Ox 97.6 F 80 20 100/51 L 98 06/02/18 07:00 06/02/18 12:00 06/02/18 07:00 06/02/18 09:37 06/02/18 07:00 - Medications Medications: Current Medications Amiodarone HCl (Cordarone) 200 mg PO DAILY [facility] Last Admin: 06/02/18 10:12 Dose: 200 mg Apixaban (Eliquis) 2.5 mg PO BID [facility] Last Admin: 06/02/18 09:35 Dose: 2.5 mg Budesonide (Pulmicort Respules) 1 mg IH BID [facility] Calcium Acetate (Phoslo) 667 mg PO TID [facility] Last Admin: 06/02/18 09:35 Dose: 667 mg Docusate Sodium (Colace) 100 mg PO TID [facility] Last Admin: 06/02/18 09:35 Dose: 100 mg Epoetin Eddie (Procrit) 10,000 unit IV MWF [facility] Last Admin: 05/31/18 12:27 Dose: 10,000 unit Famotidine (Pepcid) 20 mg PO DAILY [facility] Last Admin: 06/02/18 09:35 Dose: 20 mg Ferrous Sulfate (Feosol) 325 mg PO DAILY [facility] Last Admin: 06/02/18 09:35 Dose: 325 mg Fluticasone/Vilanterol (Breo Ellipta 200-25 Mcg Inh) 1 puff INH DAILY [facility] Glipizide (Glucotrol) 10 mg PO ACBD [facility] Last Admin: 06/02/18 07:30 Dose: Not Given Guaifenesin (Robitussin) 100 mg PO Q4H PRN PRN Reason: Cough Last Admin: 06/02/18 09:35 Dose: 100 mg Moxifloxacin HCl (Avelox Iv 400mg/250ml Ns) 400 mg in 250 mls @ 167 mls/hr IVPB Q24H [facility]; Protocol Last Admin: 06/02/18 10:15 Dose: 167 mls/hr Insulin Detemir (Levemir) 12 unit SC DAILY [facility] Last Admin: 06/02/18 09:36 Dose: Not Given Insulin Human Regular (Novolin R) 0 unit SC ACHS [facility]; Protocol Last Admin: 06/02/18 07:06 Dose: Not Given Ipratropium [place] (Atrovent) 0.5 mg IH RQ6 PRN PRN Reason: Shortness of Breath Levothyroxine Sodium (Synthroid) 75 mcg PO DAILY@0630 [facility] Last Admin: 06/02/18 05:43 Dose: 75 mcg Metoprolol Tartrate (Lopressor) 25 mg PO BID [facility] Last Admin: 06/02/18 10:20 Dose: Not Given Rosuvastatin Calcium (Crestor) 5 mg PO HS [facility] Last Admin: 06/01/18 21:48 Dose: 5 mg Tiotropium [place] (Spiriva) 18 mcg INH RQ24 [facility] Last Admin: 06/02/18 08:26 Dose: Not Given - Labs Labs: 06/01/18 09:18 05/30/18 08:12 - Head Exam Head Exam: NORMAL INSPECTION - Eye Exam Eye Exam: Normal appearance - ENT Exam ENT Exam: Mucous Membranes Moist - Respiratory Exam Respiratory Exam: Decreased Breath Sounds - Cardiovascular Exam Cardiovascular Exam: REGULAR RHYTHM, +S1, +S2 - GI/Abdominal Exam GI & Abdominal Exam: Soft, Normal Bowel Sounds - Extremities Exam Extremities Exam: Pedal Edema - Neurological Exam Neurological Exam: Alert, Oriented x3 Assessment and Plan (1) Anemia Status: Acute (2) ESRD (end stage renal disease) on dialysis Status: Acute (3) COPD (chronic obstructive pulmonary disease) Status: Acute - Assessment and Plan (Free Text) Plan: Breo Ellipta Spiriva Bronchodilators HD as per schedule DVT/GI prophalaxis
--- NOTE | 2018-06-02 16:31 | CP.PCM.CON ---
History of Present Illness - History of Present Illness History of Present Illness: 83 year old female with a history of COPD, CHF, DM, afib, hypothyroid, multiple myeloma treated with Dr. Martinez, sent from the [place] after finding the patients hgb to be 6.8. Admitted for transfusionas and referred for ID eval of UTI r/o i nfection recent sepsis Past medical history: COPD, CHF, DM, afib, hypothyroid, multiple myeloma Past surgical history: Denies Family history: DM Social history: Denies tobacco, alcohol, and illicit drug use. Allergies: NKA Review of Systems - Review of Systems All systems: reviewed and no additional remarkable complaints except - Constitutional Constitutional: As Per HPI - EENT Eyes: absent: As Per HPI, Blind Spots, Blurred Vision, Change in Vision, Decreased Night Vision, Diplopia, Discharge, Dry Eye, Exophthalmos, Floaters, Irritation, Itchy Eyes, Loss of Peripheral Vision, Pain, Photophobia, Requires Corrective Lenses, Sees Flashes, Spots in Vision, Tunnel Vision, Other Visual Disturbances, Loss of Vision, Other Ears: absent: As Per HPI, Decreased Hearing, Ear Discharge, Ear Pain, Tinnitus, Abnormal Hearing, Disequilibrium, Dizziness, Other Nose/Mouth/Throat: absent: As Per HPI, Epistaxis, Nasal Congestion, Nasal Discharge, Nasal Obstruction, Nasal Trauma, Nose Pain, Post Nasal Drip, Sinus Pain, Sinus Pressure, Bleeding Gums, Change in Voice, Dental Pain, Dry Mouth, Dysphagia, Halitosis, Hoarsness, Lip Swelling, Mouth Lesions, Mouth Pain, Odynophagia, Sore Throat, Throat Swelling, Tongue Swelling, Facial Pain, Neck Pain, Neck Mass, Other - Breasts Breasts: absent: As Per HPI, Change in Shape, Mass, Pain, Nipple Discharge, Nipple Inversion, Skin Changes, Swelling, Other - Cardiovascular Cardiovascular: absent: As Per HPI, Acrocyanosis, Chest Pain, Chest Pain at Rest, Chest Pain with Activity, Claudication, Diaphoresis, Dyspnea, Dyspnea on Exertion, Edema, Irregular Heart Rhythm, Pain Radiating to Arm/Neck/Jaw, Leg Edema, Leg Ulcers, Lightheadedness, Orthopnea, Palpitations, Paroxysmal No cturnal Dyspnea, Pedal Edema, Radiating Pain, Rapid Heart Rate, Slow Heart Rate, Syncope, Other - Respiratory Respiratory: absent: As Per HPI, Cough, Dyspnea, Hemoptysis, Dyspnea on Exertion, Wheezing, Snoring, Stridor, Pain on Inspiration, Chest Congestion, Ex cessive Mucous Production, Change in Mucous Color, Pain with Coughing, Other - Gastrointestinal Gastrointestinal: absent: As Per HPI, Abdominal Pain, Belching, Bloating, Change in Bowel Habits, Change in Stool Character, Coffee Ground Emesis, Constipation, Cramping, Diarrhea, Dyspepsia, Dysphagia, Early Satiety, Excessive Flatus, Fecal Incontinence, Heartburn, Hematemesis, Hematochezia, Loose Stools, Melena, Nausea, Odynophagia, Temesmus, Vomiting, Other - Genitourinary Genitourinary: As Per HPI - Reproductive: Female Reproductive:Female: absent: As Per HPI, Amenorrhea, Amenorrhea/ Control, Currently Menstual, Cycle <21 Days, Cycle >35 Days, Cycle Variable, Menses 1-7 D ays, Menses >/= 8 Days, Menses Variable, Cycle > 4 Weeks Between, No Menses for 6 Months, Heavy Menses, Light Menses, Normal Menses, Spotting Between Cycles, S/P Hysterectomy, Menopausal, Post Menopausal, Premenarche, Abnormal Vaginal Bleeding, Dysmenorrhea, Dyspareunia, Genital Lesions, Genital Pruritis, Pelvic Pain, Prolapse Symptoms, Sexual Dysfunction, Vaginal Discharge, Vaginal Dryness, Vaginal Odor, Vaginal Pruritis, Other - Menstruation Menstruation: absent: As Per HPI, Amenorrhea, Amenorrhea/ Control, Currently Menstual, Cycle <21 Days, Cycle >35 Days, Cycle Variable, Menses 1-7 Days, Menses >/= 8 Days, Menses Variable, Cycle > 4 Weeks Between, No Menses for 6 Months, Heavy Menses, Light Menses, Normal Menses, Spotting Between Cycles, S/P Hysterectomy, Menopausal, Post Menopausal, Premenarche, Abnormal Vaginal Bleeding, Dysmenorrhea, Other - Musculoskeletal Musculoskeletal: absent: As Per HPI, Abnormal Gait, Arthralgias, Atrophy, Back Pain, Deformity, Joint Swelling, Limited Range of Motion, Loss of Height, Muscle Cramps, Muscle Weakness, Myalgias, Neck Pain, Numbness, Radiating Pain into Moraes b, Stiffness, Tingling, Other - Integumentary Integumentary: absent: As Per HPI, Acne, Alopecia, Bleeding Lesions, Change in Hair, Change in Nails, Change in Pigmentation, Changing Lesions, Dry Skin, Erythema, Furuncle, Hirsutism, Lesions, New Lesions, Non-Healing Lesions, Photosensitivity, Pruritus, Rash, Skin Pain, Skin Ulcer, Sores, Striae, Swelling, Unusual Bruising, Wounds, Jaundice, Other - Neurological Neurological: absent: As Per HPI, Abnormal Gait, Abnormal Hearing, Abnormal Movements, Abnormal Speech, Behavioral Changes, Burning Sensations, Confusion, Convulsions, Disequilibrium, Dizziness, Numbness, Focal Weakness, Frequent Falls, Headaches, Lack of Coordination, Loss of Vision, Memory Loss, Paresthesi as, Radicular Pain, Restless Legs, Sensory Deficit, Syncope, Tingling, Tremor, Vertigo, Weakness, Other Visual Disturbances, Other - Psychiatric Psychiatric: absent: As Per HPI, Abnormal Sleep Pattern, Anhedonia, Anxiety, Auditory Hallucinations, Behavioral Changes, Change in Appetite, Change in Libido, Confusion, Depression, Difficulty Concentrating, Hallucinations, Homicidal Ideation, Hopelessness, Irritability, Memory Loss, Mood Swings, Panic Attacks, Paranoia, Suicidal Ideation, Visual Hallucinations, Tactile Hallucinations, Other - Endocrine Endocrine: absent: As Per HPI, Change in Body Appearance, Change in Libido, Cold Intolorance, Deepening of Voice, Excessive Sweating, Fatigue, Flushing, Heat Intolorance, Increase in Ring/Shoe/Hat Size, Palpitations, Polydipsia, Polyphagia, Polyuria, Other - Hematologic/Lymphatic Hematologic: As Per HPI Past Patient History - Infectious Disease Hx of Infectious Diseases: None - Past Medical History & Family History Past Medical History?: Yes - Past Social History Smoking Status: Former Smoker - CARDIAC Hx Atrial Fibrillation: Yes Hx Cardia Arrhythmia: Yes Hx Congestive Heart Failure: Yes Hx Hypercholesterolemia: Yes Hx Hypertension: Yes - PULMONARY Hx Chronic Obstructive Pulmonary Disease (COPD): Yes - NEUROLOGICAL Hx Neurological Disorder: No - HEENT Hx HEENT Problems: Yes Hx Cataracts: Yes (bilateral) - RENAL Hx Chronic Kidney Disease: Yes - ENDOCRINE/METABOLIC Hx Hypothyroidism: Yes - HEMATOLOGICAL/ONCOLOGICAL Hx Anemia: Yes - INTEGUMENTARY Hx Dermatological Problems: No - MUSCULOSKELETAL/RHEUMATOLOGICAL Hx Arthritis: Yes Hx Falls: No - GASTROINTESTINAL Hx Gastrointestinal Disorders: Yes Hx Hemorrhoids: Yes - GENITOURINARY/GYNECOLOGICAL Hx Genitourinary Disorders: No - PSYCHIATRIC Hx Substance Use: No - SURGICAL HISTORY Hx Surgeries: Yes Hx Arteriovenous Shunt: Yes (LEFT ARM AV ,permacath) Hx Vascular Access Device: Yes (perma cath elaina cath) - ANESTHESIA Hx Anesthesia: Yes Hx Anesthesia Reactions: No Hx Malignant Hyperthermia: No Meds Allergies/Adverse Reactions: Allergies Allergy/AdvReac Type Severity Reaction Status Date / Time No Known Allergies Allergy Verified 05/29/18 21:28 - Medications Medications: Current Medications Amiodarone HCl (Cordarone) 200 mg PO DAILY [facility] Last Admin: 06/02/18 10:12 Dose: 200 mg Apixaban (Eliquis) 2.5 mg PO BID [facility] Last Admin: 06/02/18 09:35 Dose: 2.5 mg Budesonide (Pulmicort Respules) 1 mg IH BID [facility] Calcium Acetate (Phoslo) 667 mg PO TID [facility] Last Admin: 06/02/18 13:48 Dose: 667 mg Docusate Sodium (Colace) 100 mg PO TID [facility] Last Admin: 06/02/18 13:48 Dose: 100 mg Epoetin [place] (Procrit) 10,000 unit IV MWF [facility] Last Admin: 05/31/18 12:27 Dose: 10,000 unit Famotidine (Pepcid) 20 mg PO DAILY [facility] Last Admin: 06/02/18 09:35 Dose: 20 mg Ferrous Sulfate (Feosol) 325 mg PO DAILY [facility] Last Admin: 06/02/18 09:35 Dose: 325 mg Fluticasone/Vilanterol (Breo Ellipta 200-25 Mcg Inh) 1 puff INH DAILY [facility] Glipizide (Glucotrol) 10 mg PO ACBD [facility] Last Admin: 06/02/18 07:30 Dose: Not Given Guaifenesin (Robitussin) 100 mg PO Q4H PRN PRN Reason: Cough Last Admin: 06/02/18 13:50 Dose: 100 mg Moxifloxacin HCl (Avelox Iv 400mg/250ml Ns) 400 mg in 250 mls @ 167 mls/hr IVPB Q24H [facility]; Protocol Last Admin: 06/02/18 10:15 Dose: 167 mls/hr Insulin Detemir (Levemir) 12 unit SC DAILY [facility] Last Admin: 06/02/18 09:36 Dose: Not Given Insulin Human Regular (Novolin R) 0 unit SC ACHS [facility]; Protocol Last Admin: 06/02/18 12:30 Dose: Not Given Ipratropium [place] (Atrovent) 0.5 mg IH RQ6 PRN PRN Reason: Shortness of Breath Levothyroxine Sodium (Synthroid) 75 mcg PO DAILY@0630 [facility] Last Admin: 06/02/18 05:43 Dose: 75 mcg Metoprolol Tartrate (Lopressor) 25 mg PO BID [facility] Last Admin: 06/02/18 10:20 Dose: Not Given Rosuvastatin Calcium (Crestor) 5 mg PO HS [facility] Last Admin: 06/01/18 21:48 Dose: 5 mg Tiotropium [place] (Spiriva) 18 mcg INH RQ24 [facility] Last Admin: 06/02/18 08:26 Dose: Not Given Physical Exam - Constitutional Appears: Non-toxic, No Acute Distress, Chronically Ill - Head Exam Head Exam: ATRAUMATIC, NORMAL INSPECTION, NORMOCEPHALIC - Eye Exam Eye Exam: PERRL. absent: Scleral icterus - ENT Exam ENT Exam: Mucous Membranes Dry, Normal External Ear Exam, Normal Oropharynx - Neck Exam Neck exam: Negative for: Lymphadenopathy, Thyromegaly - Respiratory Exam Respiratory Exam: Decreased Breath Sounds, Prolonged Expiratory Phase, Rhonchi - Cardiovascular Exam Cardiovascular Exam: REGULAR RHYTHM, +S1, +S2 - GI/Abdominal Exam GI & Abdominal Exam: Diminished Bowel Sounds, Soft. absent: Guarding, Rebound, Rigid, Tenderness - Rectal Exam Rectal Exam: Deferred - Exam Exam: NORMAL INSPECTION - Extremities Exam Extremities exam: Negative for: pedal edema - Back Exam Back exam: absent: CVA tenderness (L), CVA tenderness (R), paraspinal tenderness - Neurological Exam Neurological exam: Alert, CN II-XII Intact, Oriented x3, Reflexes Normal - Psychiatric Exam Psychiatric exam: Depressed - Skin Skin Exam: Dry, Intact Results - Vital Signs Recent Vital Signs: Last Vital Signs Temp 100.4 F H 06/02/18 15:00 Pulse 89 06/02/18 15:00 Resp 18 06/02/18 15:00 BP 116/59 L 06/02/18 15:00 Pulse Ox 96 06/02/18 15:00 - Labs Result Diagrams: 06/01/18 09:18 05/30/18 08:12 Labs: Laboratory Results - last 24 hr 06/01/18 06/01/18 06/01/18 08:32 16:14 16:16 POC Glucose (mg/dL) 56 L 53 L Total Protein (PEP) 6.8 06/01/18 06/01/18 06/01/18 17:14 21:08 21:10 POC Glucose (mg/dL) 77 51 L 43 L Total Protein (PEP) 06/01/18 06/01/18 06/02/18 21:39 23:19 06:02 POC Glucose (mg/dL) 92 168 H 57 L Total Protein (PEP) 06/02/18 06/02/18 06/02/18 06:03 06:32 11:31 POC Glucose (mg/dL) 59 L 120 H 358 H Total Protein (PEP) 06/02/18 16:15 POC Glucose (mg/dL) 212 H Total Protein (PEP) Assessment & Plan (1) Anemia Status: Acute (2) ESRD (end stage renal disease) on dialysis Status: Acute (3) Acute bronchitis Status: Acute (4) Bronchitis Status: Acute (5) COPD (chronic obstructive pulmonary disease) Status: Acute (6) Leucocytosis Status: Acute (7) Myeloma kidney Status: Acute (8) Atrial fibrillation Status: Chronic (9) Chronic diastolic (congestive) heart failure Status: Chronic (10) Diabetes 1.5, managed as type 2 Status: Chronic
[2018-06-02] MEDS ORDERED: Gentamicin 160 MG in Sodium Chloride 0.9% 100 ML IVPB STA (17:21)
[2018-06-02 19:09] LABS: SQUAMOUS EPITHIAL 2 /hpf (0-5); URINE AMORPHOUS SEDIMENT MODERATE /ul (<OCC); URINE BILIRUBIN NEGATIVE (NEGATIVE); URINE BLOOD NEGATIVE (NEGATIVE); URINE CLARITY Hazy (Clear); URINE COLOR Yellow (YELLOW); URINE GLUCOSE (UA) NORMAL (Normal); URINE LEUKOCYTE ESTERASE TRACE Leu/uL (Negative); URINE PROTEIN 2+ mg/dL (NEGATIVE); URINE UROBILINOGEN NORMAL mg/dL (0.2-1.0)
[2018-06-03] MEDS: Levothyroxine 75 MCG TAB PO SCH (05:46)
[2018-06-03] MEDS: Ipratropium 0.02% Inhal Soln (0.5 mg/2.5 ml) UD IH PRN ×2 (07:20→13:30)
[2018-06-03] MEDS: Tiotropium 18 mcg Cap For Inhalation INH SCH (07:20)
[2018-06-03] MEDS: (Novolin R) Insulin Human Regular 100 units/ml vial SC SCH ×4 (08:18→21:10)
[2018-06-03] MEDS: Vancomycin 1 gm/NS 200 ml 1 GM/200 ML BAG IVPB SCH (08:19)
[2018-06-03] MEDS: guaiFENesin 100 mg/5 ml Syrup UD PO PRN ×2 (08:33→14:12)
[2018-06-03] MEDS: Insulin Detemir 100 units/ml Vial (Levemir) SC SCH (09:59)
[2018-06-03] MEDS: Epoetin Alfa 10,000 unit/ml Dialysis IV SCH (10:14)
--- NOTE | 2018-06-03 10:23 | CP.PCM.PN ---
Subjective - Date & Time of Evaluation Date of Evaluation: 06/03/18 Time of Evaluation: 10:20 - Subjective Subjective: pt seen and examined in bed, no distress no SOB but using oxygen no chest pain or palpitations ROS- as per HPI, other than that 10 point ROS negative Objective - Vital Signs/Intake and Output Vital Signs (last 24 hours): Temp Pulse Resp BP Pulse Ox 98.8 F 91 H 18 112/52 L 97 06/03/18 10:00 06/03/18 10:00 06/03/18 10:00 06/03/18 10:00 06/03/18 07:15 - Medications Medications: Current Medications Amiodarone HCl (Cordarone) 200 mg PO DAILY [facility] Last Admin: 06/03/18 09:59 Dose: Not Given Apixaban (Eliquis) 2.5 mg PO BID [facility] Last Admin: 06/03/18 09:59 Dose: Not Given Budesonide (Pulmicort Respules) 1 mg IH BID [facility] Calcium Acetate (Phoslo) 667 mg PO TID [facility] Last Admin: 06/03/18 09:59 Dose: Not Given Docusate Sodium (Colace) 100 mg PO TID [facility] Last Admin: 06/03/18 09:59 Dose: Not Given Epoetin Eddie (Procrit) 10,000 unit IV MWF [facility] Last Admin: 06/03/18 10:14 Dose: 10,000 unit Famotidine (Pepcid) 20 mg PO DAILY [facility] Last Admin: 06/03/18 09:59 Dose: Not Given Ferrous Sulfate (Feosol) 325 mg PO DAILY [facility] Last Admin: 06/03/18 09:59 Dose: Not Given Fluticasone/Vilanterol (Breo Ellipta 200-25 Mcg Inh) 1 puff INH DAILY [facility] Glipizide (Glucotrol) 10 mg PO ACBD [facility] Last Admin: 06/03/18 08:17 Dose: 10 mg Guaifenesin (Robitussin) 100 mg PO Q4H PRN PRN Reason: Cough Last Admin: 06/03/18 08:33 Dose: 100 mg Moxifloxacin HCl (Avelox Iv 400mg/250ml Ns) 400 mg in 250 mls @ 167 mls/hr IVPB Q24H [facility]; Protocol Last Admin: 06/02/18 10:15 Dose: 167 mls/hr Vancomycin/Sodium Chloride (Vancomycin 1 Gm/Ns 200 Ml) 1 gm in 200 mls @ 133 mls/hr IVPB MWF [facility]; Protocol Stop: 06/08/18 09:01 Last Admin: 06/03/18 08:19 Dose: 133 mls/hr Insulin Detemir (Levemir) 12 unit SC DAILY [facility] Last Admin: 06/03/18 09:59 Dose: Not Given Insulin Human Regular (Novolin R) 0 unit SC ACHS [facility]; Protocol Last Admin: 06/03/18 08:18 Dose: Not Given Ipratropium [place] (Atrovent) 0.5 mg IH RQ6 PRN PRN Reason: Shortness of Breath Last Admin: 06/03/18 07:20 Dose: 0.5 mg Levothyroxine Sodium (Synthroid) 75 mcg PO DAILY@0630 [facility] Last Admin: 06/03/18 05:46 Dose: 75 mcg Metoprolol Tartrate (Lopressor) 25 mg PO BID [facility] Last Admin: 06/03/18 09:59 Dose: Not Given Rosuvastatin Calcium (Crestor) 5 mg PO HS [facility] Last Admin: 06/02/18 21:54 Dose: 5 mg Tiotropium [place] (Spiriva) 18 mcg INH RQ24 [facility] Last Admin: 06/03/18 07:20 Dose: 18 mcg - Labs Labs: 06/01/18 09:18 05/30/18 08:12 - Constitutional Appears: Non-toxic, No Acute Distress - Head Exam Head Exam: ATRAUMATIC, NORMOCEPHALIC - Eye Exam Eye Exam: EOMI, PERRL - ENT Exam ENT Exam: Mucous Membranes Moist - Neck Exam Neck Exam: Full ROM - Respiratory Exam Respiratory Exam: Clear to Ausculation Bilateral. absent: Rhonchi, Wheezes - Cardiovascular Exam Cardiovascular Exam: Irregular Rhythm, +S1, +S2 - GI/Abdominal Exam GI & Abdominal Exam: Soft. absent: Distended, Tenderness - Extremities Exam Extremities Exam: Full ROM. absent: Pedal Edema - Neurological Exam Neurological Exam: Alert, Awake, Oriented x3 - Psychiatric Exam Psychiatric exam: Normal Affect, Normal Mood - Skin Skin Exam: Normal Color, Warm Assessment and Plan (1) Anemia Status: Acute (2) ESRD (end stage renal disease) on dialysis Status: Acute (3) Atrial fibrillation with controlled ventricular response Status: Acute (4) CHF (congestive heart failure) Status: Acute (5) COPD (chronic obstructive pulmonary disease) Status: Acute (6) Multiple myeloma Status: Acute (7) Leucocytosis Status: Acute - Assessment and Plan (Free Text) Plan: HD today, maintain MWF schedule check labs with HD on vancomycin- ? to be given after HD HR better , on po amiodarone
[2018-06-03 10:33] LABS: BASO % 0.3 % (0.0-2.0); HEMOGLOBIN 9.3 g/dL (11.0-16.0); LYMPH % 10.9 % (20.0-40.0); MEAN CELL VOLUME 89.9 fL (81.0-99.0); MEAN CORPUSCULAR HEMOGLOBIN 28.5 pg (27.0-31.0); MEAN CORPUSCULAR HGB CONC 31.7 g/dL (33.0-37.0); MEAN PLATELET VOLUME 9.2 fL (7.2-11.7); MONO # 0.9 K/uL (0.0-0.8); MONO % 9.4 % (0.0-10.0); NEUT # 7.6 K/uL (1.8-7.0); NEUT % 79.4 % (50.0-75.0); NRBC % 0.1 % (0.0-2.0); RBC 3.26 Mil/uL (3.80-5.20); RED CELL DISTRIBUTION WIDTH 15.9 % (11.5-14.5); WHITE BLOOD COUNT 9.6 K/uL (4.8-10.8)
[2018-06-03 10:45] LABS: CALCIUM 7.7 mg/dl (8.6-10.4)
--- NOTE | 2018-06-03 11:04 | CP.PCM.PN ---
Subjective - Date & Time of Evaluation Date of Evaluation: 06/03/18 Time of Evaluation: 11:02 - Subjective Subjective: Tolerating HD BP and HR are acceptable/normal range No CP, fevers, chills, N/V Objective - Vital Signs/Intake and Output Vital Signs (last 24 hours): Temp Pulse Resp BP Pulse Ox 98.8 F 91 H 18 135/64 98 06/03/18 10:05 06/03/18 10:05 06/03/18 10:05 06/03/18 10:20 06/03/18 10:05 - Medications Medications: Current Medications Amiodarone HCl (Cordarone) 200 mg PO DAILY [facility] Last Admin: 06/03/18 09:59 Dose: Not Given Apixaban (Eliquis) 2.5 mg PO BID [facility] Last Admin: 06/03/18 09:59 Dose: Not Given Budesonide (Pulmicort Respules) 1 mg IH BID [facility] Calcium Acetate (Phoslo) 667 mg PO TID [facility] Last Admin: 06/03/18 09:59 Dose: Not Given Docusate Sodium (Colace) 100 mg PO TID [facility] Last Admin: 06/03/18 09:59 Dose: Not Given Epoetin Eddie (Procrit) 10,000 unit IV MWF [facility] Last Admin: 06/03/18 10:14 Dose: 10,000 unit Famotidine (Pepcid) 20 mg PO DAILY [facility] Last Admin: 06/03/18 09:59 Dose: Not Given Ferrous Sulfate (Feosol) 325 mg PO DAILY [facility] Last Admin: 06/03/18 09:59 Dose: Not Given Fluticasone/Vilanterol (Breo Ellipta 200-25 Mcg Inh) 1 puff INH DAILY [facility] Glipizide (Glucotrol) 10 mg PO ACBD [facility] Last Admin: 06/03/18 08:17 Dose: 10 mg Guaifenesin (Robitussin) 100 mg PO Q4H PRN PRN Reason: Cough Last Admin: 06/03/18 08:33 Dose: 100 mg Moxifloxacin HCl (Avelox Iv 400mg/250ml Ns) 400 mg in 250 mls @ 167 mls/hr IVPB Q24H [facility]; Protocol Last Admin: 06/02/18 10:15 Dose: 167 mls/hr Vancomycin/Sodium Chloride (Vancomycin 1 Gm/Ns 200 Ml) 1 gm in 200 mls @ 133 mls/hr IVPB MWF [facility]; Protocol Stop: 06/08/18 09:01 Last Admin: 06/03/18 08:19 Dose: 133 mls/hr Insulin Detemir (Levemir) 12 unit SC DAILY [facility] Last Admin: 06/03/18 09:59 Dose: Not Given Insulin Human Regular (Novolin R) 0 unit SC ACHS [facility]; Protocol Last Admin: 06/03/18 08:18 Dose: Not Given Ipratropium [place] (Atrovent) 0.5 mg IH RQ6 PRN PRN Reason: Shortness of Breath Last Admin: 06/03/18 07:20 Dose: 0.5 mg Levothyroxine Sodium (Synthroid) 75 mcg PO DAILY@0630 [facility] Last Admin: 06/03/18 05:46 Dose: 75 mcg Metoprolol Tartrate (Lopressor) 25 mg PO BID [facility] Last Admin: 06/03/18 09:59 Dose: Not Given Rosuvastatin Calcium (Crestor) 5 mg PO HS [facility] Last Admin: 06/02/18 21:54 Dose: 5 mg Tiotropium [place] (Spiriva) 18 mcg INH RQ24 [facility] Last Admin: 06/03/18 07:20 Dose: 18 mcg - Labs Labs: 06/03/18 10:15 06/03/18 10:15 - Constitutional Appears: No Acute Distress - Respiratory Exam Respiratory Exam: Rhonchi, NORMAL BREATHING PATTERN. absent: Rales, Wheezes - Cardiovascular Exam Cardiovascular Exam: REGULAR RHYTHM, +S1, +S2. absent: +S4, Murmur - GI/Abdominal Exam GI & Abdominal Exam: Soft, Normal Bowel Sounds. absent: Tenderness, Organomegaly - Extremities Exam Extremities Exam: absent: Calf Tenderness, Normal Inspection (scattered echymosis all extrem; L. arm AV graft) - Neurological Exam Neurological Exam: Alert, Awake, Oriented x3 - Psychiatric Exam Psychiatric exam: Normal Affect, Normal Mood - Skin Skin Exam: Normal Color, Warm Assessment and Plan - Assessment and Plan (Free Text) Assessment: 83 y/o with parox AFIB: [employer] called after AFIB RVR Severe anemia s/p 2 units PRBCs H/H 6.9 > 10.3 acute on chronic COPD/bronchitis on Rx improving > Hx of elective cardioversion due to AFIB and hypotension mid April 2018 EKG ordered and repeated by me today 06/01/18: NSR, no acute ischemic changes CXR: atelectasis, possible infiltrate ECHO 04/14/18: Images directly viewedby me: Normal LVEF and wall motion, LVH, diastolic dysfunction, mild-mod MR, mild-mod pulm HTN Patient is now back in NSR: she is tolerating amiodarone 200daily and lopressor 25 BID BP is normal, HR is stable Plan: Cont amiodarone and lopressor If H/H remains stable and no concern for acute blood loss: resume eliquis 2.5 BID for stroke risk reduction as [id number]= 3+ Future options for AFIB including ablation, PPM with AVN ablation have been discussed with family and patient and they prefer a conservative non-invasive approach for now. Ok to d/c telemetry cont PULM supportive care for acute bronchitis: still active ESRD: cont HD via L. forarm AVF/graft -> monitor lytes MM: RX per HEME/ONC: monitor H/H 6.9 > 10.9 > 9.3
[2018-06-03] MEDS: Moxifloxacin IV 400mg/250ml NS 400 MG/250 ML BAG IVPB SCH ×2 (13:30→14:05)
--- NOTE | 2018-06-03 13:42 | CP.PCM.PN ---
Subjective - Date & Time of Evaluation Date of Evaluation: 06/03/18 Time of Evaluation: 08:00 - Subjective Subjective: awake alert having chills on HD Objective - Vital Signs/Intake and Output Vital Signs (last 24 hours): Temp Pulse Resp BP Pulse Ox 98.8 F 91 H 18 156/66 H 98 06/03/18 10:05 06/03/18 10:05 06/03/18 10:05 06/03/18 12:35 06/03/18 10:05 - Medications Medications: Current Medications Amiodarone HCl (Cordarone) 200 mg PO DAILY [facility] Last Admin: 06/03/18 09:59 Dose: Not Given Apixaban (Eliquis) 2.5 mg PO BID [facility] Last Admin: 06/03/18 09:59 Dose: Not Given Budesonide (Pulmicort Respules) 1 mg IH BID [facility] Calcium Acetate (Phoslo) 667 mg PO TID [facility] Last Admin: 06/03/18 09:59 Dose: Not Given Docusate Sodium (Colace) 100 mg PO TID [facility] Last Admin: 06/03/18 09:59 Dose: Not Given Epoetin [place] (Procrit) 10,000 unit IV MWF [facility] Last Admin: 06/03/18 10:14 Dose: 10,000 unit Famotidine (Pepcid) 20 mg PO DAILY [facility] Last Admin: 06/03/18 09:59 Dose: Not Given Ferrous Sulfate (Feosol) 325 mg PO DAILY [facility] Last Admin: 06/03/18 09:59 Dose: Not Given Fluticasone/Vilanterol (Breo Ellipta 200-25 Mcg Inh) 1 puff INH DAILY [facility] Glipizide (Glucotrol) 10 mg PO ACBD [facility] Last Admin: 06/03/18 08:17 Dose: 10 mg Guaifenesin (Robitussin) 100 mg PO Q4H PRN PRN Reason: Cough Last Admin: 06/03/18 08:33 Dose: 100 mg Moxifloxacin HCl (Avelox Iv 400mg/250ml Ns) 400 mg in 250 mls @ 167 mls/hr IVPB Q24H [facility]; Protocol Last Admin: 06/03/18 13:30 Dose: Not Given Vancomycin/Sodium Chloride (Vancomycin 1 Gm/Ns 200 Ml) 1 gm in 200 mls @ 133 mls/hr IVPB MWF [facility]; Protocol Stop: 06/08/18 09:01 Last Admin: 06/03/18 08:19 Dose: 133 mls/hr Insulin Detemir (Levemir) 12 unit SC DAILY [facility] Last Admin: 06/03/18 09:59 Dose: Not Given Insulin Human Regular (Novolin R) 0 unit SC ACHS [facility]; Protocol Last Admin: 06/03/18 13:30 Dose: Not Given Ipratropium [place] (Atrovent) 0.5 mg IH RQ6 PRN PRN Reason: Shortness of Breath Last Admin: 06/03/18 07:20 Dose: 0.5 mg Levothyroxine Sodium (Synthroid) 75 mcg PO DAILY@0630 [facility] Last Admin: 06/03/18 05:46 Dose: 75 mcg Metoprolol Tartrate (Lopressor) 25 mg PO BID [facility] Last Admin: 06/03/18 09:59 Dose: Not Given Rosuvastatin Calcium (Crestor) 5 mg PO HS [facility] Last Admin: 06/02/18 21:54 Dose: 5 mg Tiotropium [place] (Spiriva) 18 mcg INH RQ24 [facility] Last Admin: 06/03/18 07:20 Dose: 18 mcg - Labs Labs: 06/03/18 10:15 06/03/18 10:15 - Constitutional Appears: Non-toxic, Cachectic, Chronically Ill - Head Exam Head Exam: NORMOCEPHALIC - Eye Exam Eye Exam: absent: Scleral icterus - ENT Exam ENT Exam: Mucous Membranes Dry - Neck Exam Neck Exam: absent: Lymphadenopathy - Respiratory Exam Respiratory Exam: Decreased Breath Sounds, Prolonged Expiratory Phase, Rhonchi - Cardiovascular Exam Cardiovascular Exam: REGULAR RHYTHM, +S1, +S2 - GI/Abdominal Exam GI & Abdominal Exam: Distended, Soft - Rectal Exam Rectal Exam: Deferred - Exam Exam: NORMAL INSPECTION - Extremities Exam Extremities Exam: absent: Pedal Edema - Back Exam Back Exam: absent: CVA tenderness (L), CVA tenderness (R) - Neurological Exam Neurological Exam: Alert, Awake, CN II-XII Intact - Psychiatric Exam Psychiatric exam: Depressed - Skin Skin Exam: Dry Assessment and Plan (1) Anemia Status: Acute (2) ESRD (end stage renal disease) on dialysis Status: Acute (3) Acute bronchitis Status: Acute (4) Bronchitis Status: Acute (5) COPD (chronic obstructive pulmonary disease) Status: Acute (6) Leucocytosis Status: Acute (7) Myeloma kidney Status: Acute (8) Atrial fibrillation Status: Chronic (9) Chronic diastolic (congestive) heart failure Status: Chronic (10) Diabetes 1.5, managed as type 2 Status: Chronic - Assessment and Plan (Free Text) Assessment: having recurrent rigors will repeat cultures cont iv antibiotics
--- NOTE | 2018-06-03 14:17 | CP.PCM.PN ---
Subjective - Date & Time of Evaluation Date of Evaluation: 06/03/18 Time of Evaluation: 10:00 - Subjective Subjective: clinically same Objective - Vital Signs/Intake and Output Vital Signs (last 24 hours): Temp Pulse Resp BP Pulse Ox 98.8 F 94 H 18 114/79 94 L 06/03/18 13:05 06/03/18 13:05 06/03/18 13:05 06/03/18 13:05 06/03/18 13:05 - Medications Medications: Current Medications Amiodarone HCl (Cordarone) 200 mg PO DAILY [facility] Last Admin: 06/03/18 09:59 Dose: Not Given Apixaban (Eliquis) 2.5 mg PO BID [facility] Last Admin: 06/03/18 09:59 Dose: Not Given Budesonide (Pulmicort Respules) 1 mg IH BID [facility] Calcium Acetate (Phoslo) 667 mg PO TID [facility] Last Admin: 06/03/18 14:14 Dose: 667 mg Docusate Sodium (Colace) 100 mg PO TID [facility] Last Admin: 06/03/18 14:14 Dose: 100 mg Epoetin [place] (Procrit) 10,000 unit IV MWF [facility] Last Admin: 06/03/18 10:14 Dose: 10,000 unit Famotidine (Pepcid) 20 mg PO DAILY [facility] Last Admin: 06/03/18 09:59 Dose: Not Given Ferrous Sulfate (Feosol) 325 mg PO DAILY [facility] Last Admin: 06/03/18 09:59 Dose: Not Given Fluticasone/Vilanterol (Breo Ellipta 200-25 Mcg Inh) 1 puff INH DAILY [facility] Glipizide (Glucotrol) 10 mg PO ACBD [facility] Last Admin: 06/03/18 08:17 Dose: 10 mg Guaifenesin (Robitussin) 100 mg PO Q4H PRN PRN Reason: Cough Last Admin: 06/03/18 14:12 Dose: 100 mg Moxifloxacin HCl (Avelox Iv 400mg/250ml Ns) 400 mg in 250 mls @ 167 mls/hr IVPB Q24H [facility]; Protocol Last Admin: 06/03/18 14:05 Dose: 167 mls/hr Vancomycin/Sodium Chloride (Vancomycin 1 Gm/Ns 200 Ml) 1 gm in 200 mls @ 133 mls/hr IVPB MWF [facility]; Protocol Stop: 06/08/18 09:01 Last Admin: 06/03/18 08:19 Dose: 133 mls/hr Gentamicin Sulfate 80 mg/ (Sodium Chloride) 102 mls @ 100 mls/hr IVPB [facility]; Protocol Insulin Detemir (Levemir) 12 unit SC DAILY [facility] Last Admin: 06/03/18 09:59 Dose: Not Given Insulin Human Regular (Novolin R) 0 unit SC ACHS [facility]; Protocol Last Admin: 06/03/18 13:30 Dose: Not Given Ipratropium [place] (Atrovent) 0.5 mg IH RQ6 PRN PRN Reason: Shortness of Breath Last Admin: 06/03/18 07:20 Dose: 0.5 mg Levothyroxine Sodium (Synthroid) 75 mcg PO DAILY@0630 [facility] Last Admin: 06/03/18 05:46 Dose: 75 mcg Metoprolol Tartrate (Lopressor) 25 mg PO BID [facility] Last Admin: 06/03/18 09:59 Dose: Not Given Rosuvastatin Calcium (Crestor) 5 mg PO HS [facility] Last Admin: 06/02/18 21:54 Dose: 5 mg Tiotropium [place] (Spiriva) 18 mcg INH RQ24 [facility] Last Admin: 06/03/18 07:20 Dose: 18 mcg - Labs Labs: 06/03/18 10:15 06/03/18 10:15
--- NOTE | 2018-06-03 15:32 | PCM.SEPTIC ---
<Anita Ramirez - Last Filed: 06/03/18 15:31> Sepsis Progress Note - Reassessment Type Date of Evaluation: 06/03/18 Reassessment Type: Non-invasive reassessment - Non Invasive Reassessment Were the most recent vital sign reviewed: Yes Vital Sign (Latest): Temp Pulse Resp BP Pulse Ox 98.8 F 94 H 18 114/79 94 L 06/03/18 13:05 06/03/18 13:05 06/03/18 13:05 06/03/18 13:05 06/03/18 13:05 Cardiovascular: Yes: Regular Rate, Rhythm Respiratory: Yes: Wheezing Capillary Refill: Normal (Less than 2 sec) Pulses: Normal Radial, Normal Dorsalis Pedis Skin: Warm <José Antonio Muñoz - Last Filed: 06/03/18 17:02> Sepsis Progress Note - Non Invasive Reassessment Vital Sign (Latest): Temp Pulse Resp BP Pulse Ox 102.6 F H 100 H 20 115/48 L 96 06/03/18 15:35 06/03/18 15:30 06/03/18 15:30 06/03/18 15:30 06/03/18 15:30 Attending/Attestation - Attestation I have personally seen and examined this patient.: Yes I have fully participated in the care of the patient.: Yes I have reviewed all pertinent clinical information, including history, physical exam and plan: Yes Notes (Text): 06/03/18 16:58 Hospitalist note: A code sepsis was called due to patient having persistent fevers. She is currently on IV abx, she is AAO x3 and is pleasant affect to speak to. She denied pain, There so far has not been any positive cultures We are repeating the CXRAY, also CT of the chest abdomen and pelvis She was anemic coming to the hospital so I asked the resident to order LDH, Haptoglobin in case there might be some element of hemolysisi causing fever Also the patient is mostly bed bound - orders for upper and lower extremity dopplers in case there is a DVT causing these fevers Her WBC is stable, there are no bands, BP stable as well Continue to monitor patient on the floors at this time José Antonio Muñoz
[2018-06-03 15:33] LABS: ARTERIAL BLOOD GAS HCO3 31.7 mmol/L (21-28); ARTERIAL BLOOD GAS O2 SAT 98.8 % (95-98); ARTERIAL BLOOD GAS PCO2 36 mm/Hg (35-45); ARTERIAL BLOOD GAS PH 7.55 (7.35-7.45); ARTERIAL BLOOD GAS PO2 71 mm/Hg (80-100); ARTERIAL BLOOD GAS TCO2 32.6 mmol/L (22-28)
--- NOTE | 2018-06-03 15:55 | RAD ---
Date of service: 06/03/2018 HISTORY: wheezing COMPARISON: 05/31/2018 FINDINGS: LUNGS: No active pulmonary disease. PLEURA: No significant pleural effusion identified, no pneumothorax apparent. CARDIOVASCULAR: Atherosclerotic calcifications identified primarily aortic arch. Venous access catheter in stable, satisfactory position. No radiographic findings to suggest acute or significant cardiovascular disease. OSSEOUS STRUCTURES: No significant abnormalities. VISUALIZED UPPER ABDOMEN: Normal. OTHER FINDINGS: None. IMPRESSION: No active disease. No significant interval change compared to the prior examination(s).
--- NOTE | 2018-06-03 17:24 | CT ---
Date of service:06/03/2018 CT chest, abdomen, and pelvis without IV contrast Indication: wheezing; sepsis Technique: Contiguous axial images of the chest, abdomen, and pelvis without oral or IV contrast. Coronal and Sagittal reformats generated and reviewed. This CT exam was performed using 1 or more of the following dose reduction techniques: Automated exposure control, adjustment of the MAA and/or kV according to patient size, and/or use of iterative reconstruction technique. Radiation dose: Total exam DLP = 1339.1 MGy-cm. Comparison: CT abdomen and pelvis performed 12/25/16, chest x-ray performed 05/02/18, CT chest without IV contrast performed 05/03/18 Findings: Left IJ approach central venous catheter extends the cavoatrial junction. Visualized portions of the inferior thyroid gland appear unremarkable. The mediastinal and hilar vascular structures appear within normal limits. The heart appears within normal limits of size. Dense mitral annulus calcification. Dense atherosclerotic calcifications of the aorta and branches. Mild scattered ground-glass opacities. No focal consolidation. No pleural effusion. No pneumothorax. Cholelithiasis. Probable small gallstones also noted within the cystic duct. 18 mm exophytic right lower pole renal hypodense lesion measures approximately 23 HU, indeterminate. No hydronephrosis or obstructing calculus. Punctate nonobstructing left renal calcifications. Bilateral adrenal gland nodular hypertrophy. The noncontrast liver, spleen, kidneys, pancreas, adrenal glands, and gallbladder appear unremarkable. Small fat containing umbilical hernia. The stomach is nondistended. Lack of oral contrast limits evaluation for bowel pathology. The bowel loops appear within normal limits of caliber without evidence of intestinal obstruction. There is no definite free air. Uterus is present. Numerous coarse calcified uterine masses consistent with degenerating fibroids. The urinary bladder appears unremarkable. Old healed left rib fracture deformities. Diffuse osseous demineralization and mottled appearance of the osseous structures. Multiple vertebral body heights demonstrate loss of height consistent with compression fracture deformities. There is decreased mineralization of the bones, most likely representing osteoporosis. Rarely, underlying metabolic bone disease or infiltrative lesions can also have this appearance. Several lucent rounded foci are noted. Recommend clinical correlation and follow-up MRI/nuclear medicine bone scan if indicated. Impression: Left IJ approach central venous catheter extends the cavoatrial junction. Dense mitral annulus calcification. Dense atherosclerotic calcifications of the aorta and branches. Mild scattered ground-glass opacities. Cholelithiasis. Probable small gallstones also noted within the cystic duct. 18 mm exophytic right lower pole renal hypodense lesion measures approximately 23 HU, indeterminate. Bilateral adrenal gland nodular hypertrophy. Numerous coarse calcified uterine masses consistent with degenerating fibroids. Old healed left rib fracture deformities. Multiple vertebral body heights demonstrate loss of height consistent with compression fracture deformities. Diffuse osseous demineralization and mottled appearance of the osseous structures. Decreased mineralization of the bones which may reflect severe osteoporosis. Underlying metabolic bone disease or infiltrative lesions can also have this appearance. Presence of several lucent rounded foci raise concern for multiple myeloma. Correlate clinically.
--- NOTE | 2018-06-03 18:21 | CP.PCM.PN ---
Subjective - Date & Time of Evaluation Date of Evaluation: 06/03/18 Time of Evaluation: 18:20 - Subjective Subjective: Patient is seen and examined No events overnight Objective - Vital Signs/Intake and Output Vital Signs (last 24 hours): Temp Pulse Resp BP Pulse Ox 102.6 F H 100 H 20 115/48 L 96 06/03/18 15:35 06/03/18 15:30 06/03/18 15:30 06/03/18 15:30 06/03/18 15:30 - Medications Medications: Current Medications Acetaminophen (Tylenol 325mg Tab) 650 mg PO Q6 PRN PRN Reason: Fever >100.4 F Amiodarone HCl (Cordarone) 200 mg PO DAILY [facility] Last Admin: 06/03/18 09:59 Dose: Not Given Apixaban (Eliquis) 2.5 mg PO BID [facility] Last Admin: 06/03/18 18:03 Dose: 2.5 mg Budesonide (Pulmicort Respules) 1 mg IH BID [facility] Calcium Acetate (Phoslo) 667 mg PO TID [facility] Last Admin: 06/03/18 18:04 Dose: 667 mg Docusate Sodium (Colace) 100 mg PO TID [facility] Last Admin: 06/03/18 18:04 Dose: 100 mg Epoetin Eddie (Procrit) 10,000 unit IV MWF [facility] Last Admin: 06/03/18 10:14 Dose: 10,000 unit Famotidine (Pepcid) 20 mg PO DAILY [facility] Last Admin: 06/03/18 09:59 Dose: Not Given Ferrous Sulfate (Feosol) 325 mg PO DAILY [facility] Last Admin: 06/03/18 09:59 Dose: Not Given Fluticasone/Vilanterol (Breo Ellipta 200-25 Mcg Inh) 1 puff INH DAILY [facility] Glipizide (Glucotrol) 10 mg PO ACBD [facility] Last Admin: 06/03/18 18:04 Dose: 10 mg Guaifenesin (Robitussin) 100 mg PO Q4H PRN PRN Reason: Cough Last Admin: 06/03/18 14:12 Dose: 100 mg Moxifloxacin HCl (Avelox Iv 400mg/250ml Ns) 400 mg in 250 mls @ 167 mls/hr IVPB Q24H [facility]; Protocol Last Admin: 06/03/18 14:05 Dose: 167 mls/hr Vancomycin/Sodium Chloride (Vancomycin 1 Gm/Ns 200 Ml) 1 gm in 200 mls @ 133 mls/hr IVPB [facility] [place] [facility]; Protocol Stop: 06/08/18 09:01 Last Admin: 06/03/18 08:19 Dose: 133 mls/hr Gentamicin Sulfate 80 mg/ (Sodium Chloride) 102 mls @ 100 mls/hr IVPB [facility] [place]; Protocol Insulin Detemir (Levemir) 12 unit SC DAILY [facility] Last Admin: 06/03/18 09:59 Dose: Not Given Insulin Human Regular (Novolin R) 0 unit SC ACHS [facility]; Protocol Last Admin: 06/03/18 17:24 Dose: Not Given Ipratropium [place] (Atrovent) 0.5 mg IH RQ6 PRN PRN Reason: Shortness of Breath Last Admin: 06/03/18 13:30 Dose: 0.5 mg Levothyroxine Sodium (Synthroid) 75 mcg PO DAILY@0630 [facility] Last Admin: 06/03/18 05:46 Dose: 75 mcg Metoprolol Tartrate (Lopressor) 25 mg PO BID [facility] Last Admin: 06/03/18 09:59 Dose: Not Given Rosuvastatin Calcium (Crestor) 5 mg PO HS [facility] Last Admin: 06/02/18 21:54 Dose: 5 mg Tiotropium [place] (Spiriva) 18 mcg INH RQ24 [facility] Last Admin: 06/03/18 07:20 Dose: 18 mcg - Labs Labs: 06/03/18 10:15 06/03/18 10:15 - Head Exam Head Exam: NORMAL INSPECTION - Eye Exam Eye Exam: Normal appearance - ENT Exam ENT Exam: Mucous Membranes Moist - Respiratory Exam Respiratory Exam: Decreased Breath Sounds - Cardiovascular Exam Cardiovascular Exam: REGULAR RHYTHM, +S1, +S2 - GI/Abdominal Exam GI & Abdominal Exam: Soft, Normal Bowel Sounds - Extremities Exam Extremities Exam: Normal Inspection Assessment and Plan (1) Anemia Status: Acute (2) ESRD (end stage renal disease) on dialysis Status: Acute (3) COPD (chronic obstructive pulmonary disease) Status: Acute - Assessment and Plan (Free Text) Plan: Brio Ellipta 200/25 mcg 1 puff daily Spiriva 18 mcg 2 puff daily Bronchodilators HD as per schedule DVT/GI prophalaxis
[2018-06-04] MEDS: guaiFENesin 100 mg/5 ml Syrup UD PO PRN ×3 (07:10→22:20)
[2018-06-04] MEDS: Levothyroxine 75 MCG TAB PO SCH (07:11)
[2018-06-04] MEDS: Tiotropium 18 mcg Cap For Inhalation INH SCH (07:45)
[2018-06-04] MEDS: Ipratropium 0.02% Inhal Soln (0.5 mg/2.5 ml) UD IH PRN ×2 (07:45→13:50)
--- NOTE | 2018-06-04 08:09 | CP.PCM.PN ---
Subjective - Date & Time of Evaluation Date of Evaluation: 06/04/18 Time of Evaluation: 08:07 - Subjective Subjective: pt seen and examined in bed, no distress Now in isolation room Discussed influenza diagnosis with daughter in law over phone no SOB but using oxygen Minimal cough no chest pain or palpitations ROS- as per HPI, other than that 10 point ROS negative Objective - Vital Signs/Intake and Output Vital Signs (last 24 hours): Temp Pulse Resp BP Pulse Ox 97.9 F 83 20 115/67 99 06/03/18 23:15 06/04/18 01:22 06/03/18 23:15 06/03/18 23:15 06/03/18 23:15 Intake and Output: 06/04/18 06/04/18 06:59 18:59 Intake Total 200 Balance 200 - Medications Medications: Current Medications Acetaminophen (Tylenol 325mg Tab) 650 mg PO Q6 PRN PRN Reason: Fever >100.4 F Amiodarone HCl (Cordarone) 200 mg PO DAILY [facility] Last Admin: 06/03/18 09:59 Dose: Not Given Apixaban (Eliquis) 2.5 mg PO BID [facility] Last Admin: 06/03/18 18:03 Dose: 2.5 mg Budesonide (Pulmicort Respules) 1 mg IH BID [facility] Calcium Acetate (Phoslo) 667 mg PO TID [facility] Last Admin: 06/03/18 18:04 Dose: 667 mg Docusate Sodium (Colace) 100 mg PO TID [facility] Last Admin: 06/03/18 18:04 Dose: 100 mg Epoetin Eddie (Procrit) 10,000 unit IV MWF [facility] Last Admin: 06/03/18 10:14 Dose: 10,000 unit Famotidine (Pepcid) 20 mg PO DAILY [facility] Last Admin: 06/03/18 09:59 Dose: Not Given Ferrous Sulfate (Feosol) 325 mg PO DAILY [facility] Last Admin: 06/03/18 09:59 Dose: Not Given Fluticasone/Vilanterol (Breo Ellipta 200-25 Mcg Inh) 1 puff INH DAILY [facility] Glipizide (Glucotrol) 10 mg PO ACBD [facility] Last Admin: 06/03/18 18:04 Dose: 10 mg Guaifenesin (Robitussin) 100 mg PO Q4H PRN PRN Reason: Cough Last Admin: 06/04/18 07:10 Dose: 100 mg Moxifloxacin HCl (Avelox Iv 400mg/250ml Ns) 400 mg in 250 mls @ 167 mls/hr IVPB Q24H [facility]; Protocol Last Admin: 06/03/18 14:05 Dose: 167 mls/hr Vancomycin/Sodium Chloride (Vancomycin 1 Gm/Ns 200 Ml) 1 gm in 200 mls @ 133 mls/hr IVPB MWF [facility]; Protocol Stop: 06/08/18 09:01 Last Admin: 06/03/18 08:19 Dose: 133 mls/hr Gentamicin Sulfate 80 mg/ (Sodium Chloride) 102 mls @ 100 mls/hr IVPB MWF [facility]; Protocol Insulin Detemir (Levemir) 12 unit SC DAILY [facility] Last Admin: 06/03/18 09:59 Dose: Not Given Insulin Human Regular (Novolin R) 0 unit SC ACHS [facility]; Protocol Last Admin: 06/03/18 21:10 Dose: Not Given Ipratropium [place] (Atrovent) 0.5 mg IH RQ6 PRN PRN Reason: Shortness of Breath Last Admin: 06/03/18 13:30 Dose: 0.5 mg Levothyroxine Sodium (Synthroid) 75 mcg PO DAILY@0630 [facility] Last Admin: 06/04/18 07:11 Dose: 75 mcg Metoprolol Tartrate (Lopressor) 25 mg PO BID [facility] Last Admin: 06/03/18 18:29 Dose: Not Given Oseltamivir Phosphate (Tamiflu Cap) 75 mg PO BID [facility]; Protocol Stop: 06/08/18 22:35 Rosuvastatin Calcium (Crestor) 5 mg PO HS [facility] Last Admin: 06/02/18 21:54 Dose: 5 mg Tiotropium [place] (Spiriva) 18 mcg INH RQ24 [facility] Last Admin: 06/03/18 07:20 Dose: 18 mcg - Labs Labs: 06/03/18 10:15 06/03/18 10:15 - Constitutional Appears: Non-toxic, Chronically Ill - Head Exam Head Exam: ATRAUMATIC, NORMAL INSPECTION - Eye Exam Eye Exam: EOMI, Normal appearance - ENT Exam ENT Exam: Mucous Membranes Moist, Normal Oropharynx - Respiratory Exam Respiratory Exam: absent: Rales, Rhonchi, Wheezes - Cardiovascular Exam Cardiovascular Exam: +S1, +S2. absent: Rubs - GI/Abdominal Exam GI & Abdominal Exam: Soft, Normal Bowel Sounds - Extremities Exam Extremities Exam: absent: Pedal Edema, Tenderness - Neurological Exam Neurological Exam: Alert, Awake - Skin Skin Exam: Dry, Intact Assessment and Plan (1) Influenza Status: Acute (2) Anemia Status: Acute (3) ESRD (end stage renal disease) on dialysis Status: Acute (4) Atrial fibrillation with controlled ventricular response Status: Acute (5) Multiple myeloma Status: Acute (6) Pneumonia Status: Acute - Assessment and Plan (Free Text) Assessment: Maintain dialysis schedule Next treatment 06/05 Antiinfective agents as prdered Isolation for influenza Continue supportive care Labs with dialysis
[2018-06-04] MEDS: Insulin Detemir 100 units/ml Vial (Levemir) SC SCH (09:08)
[2018-06-04] MEDS: (Novolin R) Insulin Human Regular 100 units/ml vial SC SCH ×4 (09:08→21:47)
[2018-06-04] MEDS: Moxifloxacin IV 400mg/250ml NS 400 MG/250 ML BAG IVPB SCH (10:11)
[2018-06-04] MEDS ORDERED: Oseltamivir 6 MG/ML PO SCH (11:00)
--- NOTE | 2018-06-04 11:13 | VASCLAB ---
Date of service: 06/03/2018 PROCEDURE: Lower Extremity Venous Duplex Exam. HISTORY: sepsis PRIORS: None. TECHNIQUE: Bilateral common femoral, femoral, popliteal and posterior tibial, peroneal and great saphenous veins were evaluated. Flow was assessed with color Doppler, compressibility, assessment of phasic flow and augmentation response. Report prepared by SALVATORE Lobo, RVT FINDINGS: RIGHT: 1. Common Femoral Vein: 1.1. Compressibility - Fully compressible: Thrombus - None : Flow - Phasic: Augmentation -Normal: Reflux - None. 2. Femoral Vein: 2.1. Compressibility - Fully compressible: Thrombus - None : Flow - Phasic: Augmentation -Normal: Reflux - None. 3. Popliteal Vein: 3.1. Compressibility - Fully compressible: Thrombus - None : Flow - Phasic: Augmentation -Normal: Reflux - None. 4. Posterior Tibial Vein: 4.1. Compressibility - Fully compressible: Thrombus - None: Flow - Phasic: Augmentation -Normal: Reflux - None. 5. Peroneal Vein: 5.1. Compressibility - Fully compressible: Thrombus - None: Flow - Phasic: Augmentation -Normal: Reflux - None. 6. Great Saphenous Vein: 6.1. Compressibility - Fully compressible: Thrombus - None: Flow - Phasic: Augmentation - Normal: Reflux - None. LEFT: 1. Common Femoral Vein: 1.1. Compressibility - Fully compressible: Thrombus - None: Flow - Phasic: Augmentation -Normal: Reflux - None. 2. Femoral Vein: 2.1. Compressibility - Fully compressible: Thrombus - None: Flow - Phasic: Augmentation -Normal: Reflux - None. 3. Popliteal Vein: 3.1. Compressibility - Fully compressible: Thrombus - None : Flow - Phasic: Augmentation -Normal: Reflux - None. 4. Posterior Tibial Vein: 4.1. Compressibility - Fully compressible: Thrombus - None: Flow - Phasic: Augmentation -Normal: Reflux - None. 5. Peroneal Vein: 5.1. Compressibility - Fully compressible: Thrombus - None: Flow - Phasic: Augmentation -Normal: Reflux - None. 6. Great Saphenous Vein: 6.1. Compressibility - Fully compressible: Thrombus - None: Flow - Phasic: Augmentation - Normal: Reflux - None. OTHER FINDINGS: Right: None significant. Left: None significant. IMPRESSION: Right: No evidence of deep or superficial vein thrombosis of the right lower extremity. Normal valve function noted of the right side. Left: No evidence of deep or superficial vein thrombosis of the left lower extremity. Normal valve function noted of the left side.
--- NOTE | 2018-06-04 11:14 | VASCLAB ---
Date of service: 06/03/2018 PROCEDURE: Upper Extremity Venous Duplex Exam HISTORY: sepsis PRIORS: None. TECHNIQUE: Bilateral upper extremity, internal jugular, subclavian, axillary, brachial, ulnar, radial, basilic and upper cephalic veins were evaluated. Flow was assessed with color Doppler, compressibility, assessment of phasic flow and augmentation response. Report prepared by Noam Archibald, SALVATORE, RVT FINDINGS: RIGHT: 1. Internal Jugular: 1.1. Compressibility - Fully compressible: Thrombus - None : Flow - Phasic: Augmentation -Normal: Reflux - None. 2. Subclavian: 2.1. Compressibility - Fully compressible: Thrombus - None : Flow - Phasic: Augmentation -Normal: Reflux - None. 3. Axillary: 3.1. Compressibility - Fully compressible: Thrombus - None : Flow - Phasic: Augmentation -Normal: Reflux - None. 4. Brachial: 4.1. Compressibility - Fully compressible: Thrombus - None: Flow - Phasic: Augmentation -Normal: Reflux - None. 5. Ulnar: 5.1. Compressibility - Fully compressible: Thrombus - None: Flow - Phasic: Augmentation -Normal: Reflux - None. 6. Radial: 6.1. Compressibility - Fully compressible: Thrombus - None: Flow - Phasic: Augmentation - Normal: Reflux - None. 7. Cephalic: 7.1. Compressibility - Fully compressible: Thrombus - None: Flow - Phasic: Augmentation -Normal: Reflux - None. 8. Basilic: 8.1. Compressibility - Fully compressible: Thrombus - None: Flow - Phasic: Augmentation -Normal: Reflux - None. LEFT: 1. Internal Jugular: 1.1. Compressibility - Fully compressible: Thrombus - None : Flow - Phasic: Augmentation -Normal: Reflux - None. 2. Subclavian: 2.1. Compressibility - Fully compressible: Thrombus - None : Flow - Phasic: Augmentation -Normal: Reflux - None. 3. Axillary: 3.1. Compressibility - Fully compressible: Thrombus - None : Flow - Phasic: Augmentation -Normal: Reflux - None. 4. Brachial: 4.1. Compressibility - Fully compressible: Thrombus - None: Flow - Phasic: Augmentation -Normal: Reflux - None. 5. Ulnar: 5.1. Compressibility - Fully compressible: Thrombus - None: Flow - Phasic: Augmentation -Normal: Reflux - None. 6. Radial: 6.1. Compressibility - Fully compressible: Thrombus - None: Flow - Phasic: Augmentation - Normal: Reflux - None. 7. Cephalic: 7.1. Compressibility - Fully compressible: Thrombus - None: Flow - Phasic: Augmentation -Normal: Reflux - None. 8. Basilic: 8.1. Compressibility - Fully compressible: Thrombus - None: Flow - Phasic: Augmentation -Normal: Reflux - None. OTHER FINDINGS: Right: None. Left: None. IMPRESSION: Right: No evidence of vein thrombosis of the right upper extremity with excellent venous flow. Normal valve function noted of the right side. Left: No evidence of vein thrombosis of the left upper extremity with excellent venous flow. Normal valve function noted of the left side.
--- NOTE | 2018-06-04 11:25 | CP.PCM.PCO ---
Physician Communication Note - Physician Communication Note Physician Communication Note: Family meeting pending for 12 pm today, with brother present
--- NOTE | 2018-06-04 12:22 | CP.PCM.PN ---
Subjective - Date & Time of Evaluation Date of Evaluation: 06/04/18 Time of Evaluation: 08:00 - Subjective Subjective: events noted flu + on isolation cultures so far neg Objective - Vital Signs/Intake and Output Vital Signs (last 24 hours): Temp Pulse Resp BP Pulse Ox 99.3 F 83 18 112/56 L 94 L 06/04/18 07:05 06/04/18 08:46 06/04/18 07:05 06/04/18 09:07 06/04/18 07:05 Intake and Output: 06/04/18 06/04/18 06:59 18:59 Intake Total 200 Balance 200 - Medications Medications: Current Medications Acetaminophen (Tylenol 325mg Tab) 650 mg PO Q6 PRN PRN Reason: Fever >100.4 F Amiodarone HCl (Cordarone) 200 mg PO DAILY [facility] Last Admin: 06/04/18 09:07 Dose: 200 mg Apixaban (Eliquis) 2.5 mg PO BID [facility] Last Admin: 06/04/18 09:06 Dose: 2.5 mg Budesonide (Pulmicort Respules) 1 mg IH BID [facility] Calcium Acetate (Phoslo) 667 mg PO TID [facility] Last Admin: 06/04/18 09:07 Dose: 667 mg Docusate Sodium (Colace) 100 mg PO TID [facility] Last Admin: 06/04/18 09:07 Dose: 100 mg Epoetin Eddie (Procrit) 10,000 unit IV MWF [facility] Last Admin: 06/03/18 10:14 Dose: 10,000 unit Famotidine (Pepcid) 20 mg PO DAILY [facility] Last Admin: 06/04/18 09:06 Dose: 20 mg Ferrous Sulfate (Feosol) 325 mg PO DAILY [facility] Last Admin: 06/04/18 09:07 Dose: 325 mg Fluticasone/Vilanterol (Breo Ellipta 200-25 Mcg Inh) 1 puff INH DAILY [facility] Glipizide (Glucotrol) 10 mg PO ACBD [facility] Last Admin: 06/04/18 09:07 Dose: 10 mg Guaifenesin (Robitussin) 100 mg PO Q4H PRN PRN Reason: Cough Last Admin: 06/04/18 07:10 Dose: 100 mg Moxifloxacin HCl (Avelox Iv 400mg/250ml Ns) 400 mg in 250 mls @ 167 mls/hr IVPB Q24H [facility]; Protocol Last Admin: 06/04/18 10:11 Dose: 167 mls/hr Vancomycin/Sodium Chloride (Vancomycin 1 Gm/Ns 200 Ml) 1 gm in 200 mls @ 133 mls/hr IVPB MWF [facility]; Protocol Stop: 06/08/18 09:01 Last Admin: 06/03/18 08:19 Dose: 133 mls/hr Gentamicin Sulfate 80 mg/ (Sodium Chloride) 102 mls @ 100 mls/hr IVPB [facility]; Protocol Insulin Detemir (Levemir) 12 unit SC DAILY [facility] Last Admin: 06/04/18 09:08 Dose: Not Given Insulin Human Regular (Novolin R) 0 unit SC ACHS [facility]; Protocol Last Admin: 06/04/18 11:42 Dose: Not Given Ipratropium [place] (Atrovent) 0.5 mg IH RQ6 PRN PRN Reason: Shortness of Breath Last Admin: 06/04/18 07:45 Dose: 0.5 mg Levothyroxine Sodium (Synthroid) 75 mcg PO DAILY@0630 [facility] Last Admin: 06/04/18 07:11 Dose: 75 mcg Metoprolol Tartrate (Lopressor) 25 mg PO BID [facility] Last Admin: 06/04/18 09:07 Dose: 25 mg Oseltamivir Phosphate (Tamiflu Susp) 30 mg PO Q24H [facility]; Protocol Stop: 06/08/18 10:01 Rosuvastatin Calcium (Crestor) 5 mg PO HS [facility] Last Admin: 06/02/18 21:54 Dose: 5 mg Tiotropium [place] (Spiriva) 18 mcg INH RQ24 [facility] Last Admin: 06/04/18 07:45 Dose: 18 mcg - Labs Labs: 06/03/18 10:15 06/03/18 10:15 - Constitutional Appears: No Acute Distress, Cachectic, Chronically Ill - Head Exam Head Exam: ATRAUMATIC, NORMOCEPHALIC - Eye Exam Eye Exam: EOMI, PERRL. absent: Scleral icterus - ENT Exam ENT Exam: Mucous Membranes Dry - Neck Exam Neck Exam: absent: Lymphadenopathy - Respiratory Exam Respiratory Exam: Decreased Breath Sounds, Rhonchi - Cardiovascular Exam Cardiovascular Exam: REGULAR RHYTHM, +S1, +S2 - GI/Abdominal Exam GI & Abdominal Exam: Distended, Soft. absent: Tenderness - Rectal Exam Rectal Exam: Deferred - Exam Exam: NORMAL INSPECTION - Extremities Exam Extremities Exam: absent: Pedal Edema - Back Exam Back Exam: absent: CVA tenderness (L), CVA tenderness (R) - Neurological Exam Neurological Exam: Alert, Awake Assessment and Plan (1) Anemia Status: Acute (2) ESRD (end stage renal disease) on dialysis Status: Acute (3) Acute bronchitis Status: Acute (4) Bronchitis Status: Acute (5) COPD (chronic obstructive pulmonary disease) Status: Acute (6) Leucocytosis Status: Acute (7) Myeloma kidney Status: Acute (8) Atrial fibrillation Status: Chronic (9) Chronic diastolic (congestive) heart failure Status: Chronic (10) Diabetes 1.5, managed as type 2 Status: Chronic - Assessment and Plan (Free Text) Assessment: started tamiflu IV antibiotics pending cultures
[2018-06-04 12:51] LABS: ALBUMIN (PEP) 2.5 g/dL (3.8-4.8); ALPHA-1-GLOBULIN (PEP) 0.7 g/dL (0.2-0.3)
--- NOTE | 2018-06-04 13:33 | CP.PCM.CON ---
History of Present Illness - History of Present Illness History of Present Illness: Palliative consult requested by Doctor Denise Penn for goals of care discussion and verification of Code status Patient is a 83 yo lady admitted [place] with abnormal labs; Hb 6.8. Patient was just treated here 2 weeks ago and discharged to [facility] with Hb of 11.1. Patient was treated for SOB and Pneumonia at that time. Upon this admission, patient was transfused PRBCs as per Doctor Hector and Epogn Inj startted. her latest Hb today is 9.3, the highest during this admission was 10.9. hepoglobulin level > 500, indicating anemia. Patient is fallowed as an outpatient by Doctor Juan for her Multiple Myeloma treatments. Patient seen by Doctor Norm on this admission, and fallow up as an outpatient with Doctor Juan was suggested. PMH: COPD, CHF, ESRD with HD, DM, A Fib, multiple myeloma Soc. Hx: , brother is a closest family member, no childrn Fam. Hx: Unknown Review of Systems - Constitutional Constitutional: Malaise - EENT Eyes: absent: As Per HPI, Blind Spots, Blurred Vision, Change in Vision, Decreased Night Vision, Diplopia, Discharge, Dry Eye, Exophthalmos, Floaters, Irritation, Itchy Eyes, Loss of Peripheral Vision, Pain, Photophobia, Requires Corrective Lenses, Sees Flashes, Spots in Vision, Tunnel Vision, Other Visual Disturbances, Loss of Vision, Other Ears: absent: As Per HPI, Decreased Hearing, Ear Discharge, Ear Pain, Tinnitus, Abnormal Hearing, Disequilibrium, Dizziness, Other Nose/Mouth/Throat: absent: As Per HPI, Epistaxis, Nasal Congestion, Nasal Discharge, Nasal Obstruction, Nasal Trauma, Nose Pain, Post Nasal Drip, Sinus Pain, Sinus Pressure, Bleeding Gums, Change in Voice, Dental Pain, Dry Mouth, Dysphagia, Halitosis, Hoarsness, Lip Swelling, Mouth Lesions, Mouth Pain, Odynophagia, Sore Throat, Throat Swelling, Tongue Swelling, Facial Pain, Neck Pain, Neck Mass, Other - Breasts Breasts: absent: As Per HPI, Change in Shape, Mass, Pain, Nipple Discharge, Nipple Inversion, Skin Changes, Swelling, Other - Cardiovascular Cardiovascular: Dyspnea on Exertion - Respiratory Respiratory: Dyspnea on Exertion - Gastrointestinal Gastrointestinal: absent: As Per HPI, Abdominal Pain, Belching, Bloating, Change in Bowel Habits, Change in Stool Character, Coffee Ground Emesis, Constipation, Cramping, Diarrhea, Dyspepsia, Dysphagia, Early Satiety, Excessive Flatus, Fecal Incontinence, Heartburn, Hematemesis, Hematochezia, Loose Stools, Melena, Nausea, Odynophagia, Temesmus, Vomiting, Other - Genitourinary Additional comments: On HD - Reproductive: Female Reproductive:Female: Post Menopausal - Menstruation Menstruation: Post Menopausal - Musculoskeletal Musculoskeletal: Myalgias - Integumentary Integumentary: Dry Skin - Neurological Neurological: Weakness - Psychiatric Psychiatric: absent: As Per HPI, Abnormal Sleep Pattern, Anhedonia, Anxiety, Auditory Hallucinations, Behavioral Changes, Change in Appetite, Change in Libido, Confusion, Depression, Difficulty Concentrating, Hallucinations, Homicidal Ideation, Hopelessness, Irritability, Memory Loss, Mood Swings, Panic Attacks, Paranoia, Suicidal Ideation, Visual Hallucinations, Tactile Hallucinations, Other - Endocrine Endocrine: Fatigue - Hematologic/Lymphatic Hematologic: As Per HPI Past Patient History - Infectious Disease Hx of Infectious Diseases: None - Past Medical History & Family History Past Medical History?: Yes - Past Social History Smoking Status: Former Smoker - CARDIAC Hx Atrial Fibrillation: Yes Hx Cardia Arrhythmia: Yes Hx Congestive Heart Failure: Yes Hx Hypercholesterolemia: Yes Hx Hypertension: Yes - PULMONARY Hx Chronic Obstructive Pulmonary Disease (COPD): Yes - NEUROLOGICAL Hx Neurological Disorder: No - HEENT Hx HEENT Problems: Yes Hx Cataracts: Yes (bilateral) - RENAL Hx Chronic Kidney Disease: Yes - ENDOCRINE/METABOLIC Hx Hypothyroidism: Yes - HEMATOLOGICAL/ONCOLOGICAL Hx Anemia: Yes - INTEGUMENTARY Hx Dermatological Problems: No - MUSCULOSKELETAL/RHEUMATOLOGICAL Hx Arthritis: Yes Hx Falls: No - GASTROINTESTINAL Hx Gastrointestinal Disorders: Yes Hx Hemorrhoids: Yes - GENITOURINARY/GYNECOLOGICAL Hx Genitourinary Disorders: No - PSYCHIATRIC Hx Substance Use: No - SURGICAL HISTORY Hx Surgeries: Yes Hx Arteriovenous Shunt: Yes (LEFT ARM AV ,permacath) Hx Vascular Access Device: Yes (perma cath elaina cath) - ANESTHESIA Hx Anesthesia: Yes Hx Anesthesia Reactions: No Hx Malignant Hyperthermia: No Meds Allergies/Adverse Reactions: Allergies Allergy/AdvReac Type Severity Reaction Status Date / Time No Known Allergies Allergy Verified 05/29/18 21:28 - Medications Medications: Current Medications Acetaminophen (Tylenol 325mg Tab) 650 mg PO Q6 PRN PRN Reason: Fever >100.4 F Amiodarone HCl (Cordarone) 200 mg PO DAILY [facility] Last Admin: 06/04/18 09:07 Dose: 200 mg Apixaban (Eliquis) 2.5 mg PO BID [facility] Last Admin: 06/04/18 09:06 Dose: 2.5 mg Budesonide (Pulmicort Respules) 1 mg IH BID [facility] Calcium Acetate (Phoslo) 667 mg PO TID [facility] Last Admin: 06/04/18 09:07 Dose: 667 mg Docusate Sodium (Colace) 100 mg PO TID [facility] Last Admin: 06/04/18 09:07 Dose: 100 mg Epoetin Eddie (Procrit) 10,000 unit IV [facility] Last Admin: 06/03/18 10:14 Dose: 10,000 unit Famotidine (Pepcid) 20 mg PO DAILY [facility] Last Admin: 06/04/18 09:06 Dose: 20 mg Ferrous Sulfate (Feosol) 325 mg PO DAILY [facility] Last Admin: 06/04/18 09:07 Dose: 325 mg Fluticasone/Vilanterol (Breo Ellipta 200-25 Mcg Inh) 1 puff INH DAILY [facility] Glipizide (Glucotrol) 10 mg PO ACBD [facility] Last Admin: 06/04/18 09:07 Dose: 10 mg Guaifenesin (Robitussin) 100 mg PO Q4H PRN PRN Reason: Cough Last Admin: 06/04/18 07:10 Dose: 100 mg Moxifloxacin HCl (Avelox Iv 400mg/250ml Ns) 400 mg in 250 mls @ 167 mls/hr IVPB Q24H [facility]; Protocol Last Admin: 06/04/18 10:11 Dose: 167 mls/hr Vancomycin/Sodium Chloride (Vancomycin 1 Gm/Ns 200 Ml) 1 gm in 200 mls @ 133 mls/hr IVPB [facility]; Protocol Stop: 06/08/18 09:01 Last Admin: 06/03/18 08:19 Dose: 133 mls/hr Gentamicin Sulfate 80 mg/ (Sodium Chloride) 102 mls @ 100 mls/hr IVPB [facility]; Protocol Insulin Detemir (Levemir) 12 unit SC DAILY [facility] Last Admin: 06/04/18 09:08 Dose: Not Given Insulin Human Regular (Novolin R) 0 unit SC ACHS [facility]; Protocol Last Admin: 06/04/18 11:42 Dose: Not Given Ipratropium [place] (Atrovent) 0.5 mg IH RQ6 PRN PRN Reason: Shortness of Breath Last Admin: 06/04/18 07:45 Dose: 0.5 mg Levothyroxine Sodium (Synthroid) 75 mcg PO DAILY@0630 [facility] Last Admin: 06/04/18 07:11 Dose: 75 mcg Metoprolol Tartrate (Lopressor) 25 mg PO BID [facility] Last Admin: 06/04/18 09:07 Dose: 25 mg Oseltamivir Phosphate (Tamiflu Susp) 30 mg PO Q24H [facility]; Protocol Stop: 06/08/18 10:01 Rosuvastatin Calcium (Crestor) 5 mg PO HS [facility] Last Admin: 06/02/18 21:54 Dose: 5 mg Tiotropium [place] (Spiriva) 18 mcg INH RQ24 [facility] Last Admin: 06/04/18 07:45 Dose: 18 mcg Physical Exam - Constitutional Appears: Chronically Ill - Head Exam Head Exam: ATRAUMATIC, NORMAL INSPECTION, NORMOCEPHALIC - Eye Exam Eye Exam: EOMI, Normal appearance, PERRL Pupil Exam: NORMAL ACCOMODATION, PERRL - ENT Exam ENT Exam: Mucous Membranes Moist, Normal Exam - Neck Exam Neck exam: Positive for: Normal Inspection - Respiratory Exam Respiratory Exam: Decreased Breath Sounds, NORMAL BREATHING PATTERN - Cardiovascular Exam Cardiovascular Exam: Tachycardia, Irregular Rhythm - GI/Abdominal Exam GI & Abdominal Exam: Normal Bowel Sounds, Soft - Rectal Exam Rectal Exam: Deferred - Exam Additional comments: On HD - Extremities Exam Extremities exam: Positive for: normal capillary refill, normal inspection, pedal pulses present - Back Exam Back exam: NORMAL INSPECTION - Neurological Exam Neurological exam: Alert, Oriented x3 - Psychiatric Exam Psychiatric exam: Depressed - Skin Skin Exam: Dry, Intact, Pallor, Warm Results - Vital Signs Recent Vital Signs: Last Vital Signs Temp 99.3 F 06/04/18 07:05 Pulse 83 06/04/18 08:46 Resp 18 06/04/18 07:05 BP 112/56 L 06/04/18 09:07 Pulse Ox 94 L 06/04/18 07:05 - Labs Result Diagrams: 06/03/18 10:15 06/03/18 10:15 Labs: Laboratory Results - last 24 hr 06/01/18 06/03/18 06/03/18 08:32 15:25 17:16 Haptoglobin Puncture Site Rb pCO2 36 pO2 71 L HCO3 31.7 H ABG pH 7.55 H ABG Total CO2 32.6 H ABG O2 Saturation 98.8 H ABG Base Excess 8.7 H Walt Test Na ABG Potassium 3.8 A-a O2 Difference 141.0 Respiratory Index 2.0 Sodium 138.0 Chloride 104.0 Glucose 306 H Lactate 2.7 H Liter Flow 4.0 FiO2 36.0 POC Glucose (mg/dL) 310 H Lactate Dehydrogenase Albumin (PEP) 2.5 L Edany-1-Bvitwasgv 0.7 H Pwsga-5-Gufnrjdya 1.3 H Izln-4-Feyjwzai 0.3 L Icfb-0-Duaforon 0.4 Gamma Globulins 1.6 Abnorm Protein Band 1 0.56 H Abnorm Protein Band 2 TEST NOT PERFORMED Abnorm Protein Band 3 TEST NOT PERFORMED Arterial Blood Potassium 3.8 SEUN & SPEP Interp See note Influenza Typ A,B (EIA) Mycoplasma pneumon IgM SIVAN, Poly Interpret 06/03/18 06/03/18 06/03/18 19:59 19:59 19:59 Haptoglobin 527.3 H Puncture Site pCO2 pO2 HCO3 ABG pH ABG Total CO2 ABG O2 Saturation ABG Base Excess Walt Test ABG Potassium A-a O2 Difference Respiratory Index Sodium Chloride Glucose Lactate Liter Flow FiO2 POC Glucose (mg/dL) Lactate Dehydrogenase 643 H Albumin (PEP) Bwfld-2-Grmqmzpxz Hvcym-9-Wdifkvqyn Fbrg-1-Dkcwmixd Mdlu-2-Kacqmzrd Gamma Globulins Abnorm Protein Band 1 Abnorm Protein Band 2 Abnorm Protein Band 3 Arterial Blood Potassium SEUN & SPEP Interp Influenza Typ A,B (EIA) Mycoplasma pneumon IgM Negative SIVAN, Poly Interpret 06/03/18 06/03/18 06/04/18 20:02 20:57 00:00 Haptoglobin Puncture Site pCO2 pO2 HCO3 ABG pH ABG Total CO2 ABG O2 Saturation ABG Base Excess Walt Test ABG Potassium A-a O2 Difference Respiratory Index Sodium Chloride Glucose Lactate Liter Flow FiO2 POC Glucose (mg/dL) 278 H Lactate Dehydrogenase Albumin (PEP) Hzfxc-4-Svneuwdjt Crpvp-2-Ghmmaqdoc Ovvj-8-Wjgpesud Tcwx-7-Ynxtiski Gamma Globulins Abnorm Protein Band 1 Abnorm Protein Band 2 Abnorm Protein Band 3 Arterial Blood Potassium SEUN & SPEP Interp Influenza Typ A,B (EIA) Pos for influenza a H Mycoplasma pneumon IgM SIVAN, Poly Interpret Negative 06/04/18 06/04/18 06:53 11:40 Haptoglobin Puncture Site pCO2 pO2 HCO3 ABG pH ABG Total CO2 ABG O2 Saturation ABG Base Excess Walt Test ABG Potassium A-a O2 Difference Respiratory Index Sodium Chloride Glucose Lactate Liter Flow FiO2 POC Glucose (mg/dL) 276 H 263 H Lactate Dehydrogenase Albumin (PEP) Nlfcl-2-Tedxhnqok Wfjue-3-Nbinypopb Cakc-6-Amximkit Hziz-5-Rwntofrk Gamma Globulins Abnorm Protein Band 1 Abnorm Protein Band 2 Abnorm Protein Band 3 Arterial Blood Potassium SEUN & SPEP Interp Influenza Typ A,B (EIA) Mycoplasma pneumon IgM SIVAN, Poly Interpret Assessment & Plan - Assessment and Plan (Free Text) Assessment: Palliative consult Full Code, POLST on chart is not valid document, PPS 30% I reviewed all Medical records, diagnostic studies and examined and interviewed patient in the bed Patient is alert, oriented x 3 Thai and Canadian speaking. Patient looks chronically ill. Skin is pale. Patient admits to be feeling tired. Patient admits to be depressed due to her medical condition and frequent hospitaliz ations. Admits to poor sleep. Breath sounds are regular with no added sounds, denies cough, admits to SOB with exertion. Abdomen soft, regular bowel sounds, denies constipation, appetite fair. There is active and passive ROM to upper and lower extremities. Patient admits to be feeling weak. Patient denies pain, nausea or vomiting. BP 106/62, HR 89, O2 Sat 96 % RA, afebrile Hb 9.3, heptoglobin > 500 I discussed with patient her condition. She admitted again feeling down and helpless but mostly concerned about her " bad blood'. I reviewed her blood work results and related her symptoms to diagnosis of Multiple Myeloma and ESRD. I reassured patient of appropriate measures applied to support her well being. Patient admitted with copy of POLST. POLST indicates DNR/DNI and is signed by nataly sparks but there is not MD's signature nor date the document was signed; there for this POLST is NOT VALID. I questioned patient about her wishes in case her condition gets worse if she should be put on life support measures. Patient was very specific that she did not want " any tube in me". I presented her of copy of POLST and asked if she wishes the same document to be issued here. Patient asked me to come back later when her brother comes in. I shared this with Nursing and asked to be made aware when the brother arrives. Impression * Chronically ill lady * Chronic anemia * Tiredness * Depression * Feeling of hopelessness Suggestion * Assist with ADLs * maintain HB WNL with blood Tf as needed * Would refer to Psychiatrist evaluation and treatment of depression * Patient needs frequent reassurance of assistance available * Full Code status, as existing POLST is not completed If patient's brother comes in today I will meet with him and discuss Code status again. Advance care planing 35 min
--- NOTE | 2018-06-04 16:55 | CP.PCM.PN ---
Subjective - Date & Time of Evaluation Date of Evaluation: 06/04/18 Time of Evaluation: 16:55 - Subjective Subjective: Patient is seen and examined No events overnight Objective - Vital Signs/Intake and Output Vital Signs (last 24 hours): Temp Pulse Resp BP Pulse Ox 99.5 F 85 18 119/52 L 98 06/04/18 15:00 06/04/18 15:00 06/04/18 15:00 06/04/18 15:00 06/04/18 15:00 Intake and Output: 06/04/18 06/04/18 06:59 18:59 Intake Total 200 Balance 200 - Medications Medications: Current Medications Acetaminophen (Tylenol 325mg Tab) 650 mg PO Q6 PRN PRN Reason: Fever >100.4 F Amiodarone HCl (Cordarone) 200 mg PO DAILY [facility] Last Admin: 06/04/18 09:07 Dose: 200 mg Apixaban (Eliquis) 2.5 mg PO BID [facility] Last Admin: 06/04/18 09:06 Dose: 2.5 mg Budesonide (Pulmicort Respules) 1 mg IH BID [facility] Calcium Acetate (Phoslo) 667 mg PO TID [facility] Last Admin: 06/04/18 14:11 Dose: 667 mg Docusate Sodium (Colace) 100 mg PO TID [facility] Last Admin: 06/04/18 14:11 Dose: 100 mg Epoetin [place] (Procrit) 10,000 unit IV MWF [facility] Last Admin: 06/03/18 10:14 Dose: 10,000 unit Famotidine (Pepcid) 20 mg PO DAILY [facility] Last Admin: 06/04/18 09:06 Dose: 20 mg Ferrous Sulfate (Feosol) 325 mg PO DAILY [facility] Last Admin: 06/04/18 09:07 Dose: 325 mg Fluticasone/Vilanterol (Breo Ellipta 200-25 Mcg Inh) 1 puff INH DAILY [facility] Glipizide (Glucotrol) 10 mg PO ACBD [facility] Last Admin: 06/04/18 09:07 Dose: 10 mg Guaifenesin (Robitussin) 100 mg PO Q4H PRN PRN Reason: Cough Last Admin: 06/04/18 14:11 Dose: 100 mg Moxifloxacin HCl (Avelox Iv 400mg/250ml Ns) 400 mg in 250 mls @ 167 mls/hr IVPB Q24H [facility]; Protocol Last Admin: 06/04/18 10:11 Dose: 167 mls/hr Vancomycin/Sodium Chloride (Vancomycin 1 Gm/Ns 200 Ml) 1 gm in 200 mls @ 133 mls/hr IVPB MWF [facility]; Protocol Stop: 06/08/18 09:01 Last Admin: 06/03/18 08:19 Dose: 133 mls/hr Gentamicin Sulfate 80 mg/ (Sodium Chloride) 102 mls @ 100 mls/hr [place] [facility] [place] Protocol Insulin Detemir (Levemir) 12 unit SC DAILY [facility] Last Admin: 06/04/18 09:08 Dose: Not Given Insulin Human Regular (Novolin R) 0 unit SC ACHS [facility]; Protocol Last Admin: 06/04/18 11:42 Dose: Not Given Ipratropium [place] (Atrovent) 0.5 mg IH RQ6 PRN PRN Reason: Shortness of Breath Last Admin: 06/04/18 13:50 Dose: 0.5 mg Levothyroxine Sodium (Synthroid) 75 mcg PO DAILY@0630 [facility] Last Admin: 06/04/18 07:11 Dose: 75 mcg Metoprolol Tartrate (Lopressor) 25 mg PO BID [facility] Last Admin: 06/04/18 09:07 Dose: 25 mg Oseltamivir Phosphate (Tamiflu Susp) 30 mg PO Q24H [facility]; Protocol Stop: 06/08/18 10:01 Rosuvastatin Calcium (Crestor) 5 mg PO HS [facility] Last Admin: 06/02/18 21:54 Dose: 5 mg Tiotropium [place] (Spiriva) 18 mcg INH RQ24 [facility] Last Admin: 06/04/18 07:45 Dose: 18 mcg - Labs Labs: 06/03/18 10:15 06/03/18 10:15 - Head Exam Head Exam: NORMAL INSPECTION - Eye Exam Eye Exam: Normal appearance - ENT Exam ENT Exam: Mucous Membranes Moist - Respiratory Exam Respiratory Exam: Clear to Ausculation Bilateral - Cardiovascular Exam Cardiovascular Exam: REGULAR RHYTHM, +S1, +S2 - GI/Abdominal Exam GI & Abdominal Exam: Soft, Normal Bowel Sounds - Extremities Exam Extremities Exam: Normal Inspection Assessment and Plan (1) Anemia Status: Acute (2) ESRD (end stage renal disease) on dialysis Status: Acute (3) COPD (chronic obstructive pulmonary disease) Status: Acute - Assessment and Plan (Free Text) Plan: Brio Ellipta 200/25 mcg 1 puff daily Spiriva 18 mcg 2 puff daily Bronchodilators HD as per schedule DVT/GI prophalaxis
--- NOTE | 2018-06-04 17:55 | CP.PCM.PN ---
Subjective - Date & Time of Evaluation Date of Evaluation: 06/04/18 Time of Evaluation: 09:45 - Subjective Subjective: clinically same Objective - Vital Signs/Intake and Output Vital Signs (last 24 hours): Temp Pulse Resp BP Pulse Ox 99.5 F 85 18 119/52 L 98 06/04/18 15:00 06/04/18 15:00 06/04/18 15:00 06/04/18 15:00 06/04/18 15:00 Intake and Output: 06/04/18 06/04/18 06:59 18:59 Intake Total 200 Balance 200 - Medications Medications: Current Medications Acetaminophen (Tylenol 325mg Tab) 650 mg PO Q6 PRN PRN Reason: Fever >100.4 F Amiodarone HCl (Cordarone) 200 mg PO DAILY [facility] Last Admin: 06/04/18 09:07 Dose: 200 mg Apixaban (Eliquis) 2.5 mg PO BID [facility] Last Admin: 06/04/18 09:06 Dose: 2.5 mg Budesonide (Pulmicort Respules) 1 mg IH BID [facility] Calcium Acetate (Phoslo) 667 mg PO TID [facility] Last Admin: 06/04/18 14:11 Dose: 667 mg Docusate Sodium (Colace) 100 mg PO TID [facility] Last Admin: 06/04/18 14:11 Dose: 100 mg Epoetin [place] (Procrit) 10,000 unit IV MWF [facility] Last Admin: 06/03/18 10:14 Dose: 10,000 unit Famotidine (Pepcid) 20 mg PO DAILY [facility] Last Admin: 06/04/18 09:06 Dose: 20 mg Ferrous Sulfate (Feosol) 325 mg PO DAILY [facility] Last Admin: 06/04/18 09:07 Dose: 325 mg Fluticasone/Vilanterol (Breo Ellipta 200-25 Mcg Inh) 1 puff INH DAILY [facility] Glipizide (Glucotrol) 10 mg PO ACBD [facility] Last Admin: 06/04/18 09:07 Dose: 10 mg Guaifenesin (Robitussin) 100 mg PO Q4H PRN PRN Reason: Cough Last Admin: 06/04/18 14:11 Dose: 100 mg Moxifloxacin HCl (Avelox Iv 400mg/250ml Ns) 400 mg in 250 mls @ 167 mls/hr IVPB Q24H [facility]; Protocol Last Admin: 06/04/18 10:11 Dose: 167 mls/hr Vancomycin/Sodium Chloride (Vancomycin 1 Gm/Ns 200 Ml) 1 gm in 200 mls @ 133 mls/hr IVPB MWF [facility]; Protocol Stop: 06/08/18 09:01 Last Admin: 06/03/18 08:19 Dose: 133 mls/hr Gentamicin Sulfate 80 mg/ (Sodium Chloride) 102 mls @ 100 mls/hr IVPB [facility] [place]; Protocol Insulin Detemir (Levemir) 12 unit SC DAILY [facility] Last Admin: 06/04/18 09:08 Dose: Not Given Insulin Human Regular (Novolin R) 0 unit SC ACHS [facility]; Protocol Last Admin: 06/04/18 17:04 Dose: Not Given Ipratropium [place] (Atrovent) 0.5 mg IH RQ6 PRN PRN Reason: Shortness of Breath Last Admin: 06/04/18 13:50 Dose: 0.5 mg Levothyroxine Sodium (Synthroid) 75 mcg PO DAILY@0630 [facility] Last Admin: 06/04/18 07:11 Dose: 75 mcg Metoprolol Tartrate (Lopressor) 25 mg PO BID [facility] Last Admin: 06/04/18 09:07 Dose: 25 mg Oseltamivir Phosphate (Tamiflu Susp) 30 mg PO Q24H [facility]; Protocol Stop: 06/08/18 10:01 Rosuvastatin Calcium (Crestor) 5 mg PO HS [facility] Last Admin: 06/02/18 21:54 Dose: 5 mg Tiotropium [place] (Spiriva) 18 mcg INH RQ24 [facility] Last Admin: 06/04/18 07:45 Dose: 18 mcg - Labs Labs: 06/03/18 10:15 06/03/18 10:15
[2018-06-05] MEDS: guaiFENesin 100 mg/5 ml Syrup UD PO PRN ×2 (05:32→11:31)
[2018-06-05] MEDS: Levothyroxine 75 MCG TAB PO SCH (05:32)
--- NOTE | 2018-06-05 07:15 | CP.PCM.PN ---
Subjective - Date & Time of Evaluation Date of Evaluation: 06/05/18 Time of Evaluation: 07:13 - Subjective Subjective: HD today no respiratory distress feels better good appetite no pain +cough no n/v/diarrhea decreased u/o no rash no headache no joint pain no change in vision no sore throat Objective - Vital Signs/Intake and Output Vital Signs (last 24 hours): Temp Pulse Resp BP Pulse Ox 99.7 F H 76 20 113/47 L 98 06/04/18 23:10 06/05/18 01:00 06/04/18 23:10 06/04/18 23:10 06/04/18 23:10 - Medications Medications: Current Medications Acetaminophen (Tylenol 325mg Tab) 650 mg PO Q6 PRN PRN Reason: Fever >100.4 F Amiodarone HCl (Cordarone) 200 mg PO DAILY [facility] Last Admin: 06/04/18 09:07 Dose: 200 mg Apixaban (Eliquis) 2.5 mg PO BID [facility] Last Admin: 06/04/18 18:03 Dose: 2.5 mg Budesonide (Pulmicort Respules) 1 mg IH BID [facility] Calcium Acetate (Phoslo) 667 mg PO TID [facility] Last Admin: 06/04/18 18:03 Dose: 667 mg Docusate Sodium (Colace) 100 mg PO TID [facility] Last Admin: 06/04/18 18:02 Dose: 100 mg Epoetin Eddie (Procrit) 10,000 unit IV MWF [facility] Last Admin: 06/03/18 10:14 Dose: 10,000 unit Famotidine (Pepcid) 20 mg PO DAILY [facility] Last Admin: 06/04/18 09:06 Dose: 20 mg Ferrous Sulfate (Feosol) 325 mg PO DAILY [facility] Last Admin: 06/04/18 09:07 Dose: 325 mg Fluticasone/Vilanterol (Breo Ellipta 200-25 Mcg Inh) 1 puff INH DAILY [facility] Glipizide (Glucotrol) 10 mg PO ACBD [facility] Last Admin: 06/04/18 18:02 Dose: 10 mg Guaifenesin (Robitussin) 100 mg PO Q4H PRN PRN Reason: Cough Last Admin: 06/05/18 05:32 Dose: 100 mg Moxifloxacin HCl (Avelox Iv 400mg/250ml Ns) 400 mg in 250 mls @ 167 mls/hr IVPB Q24H [facility]; Protocol Last Admin: 06/04/18 10:11 Dose: 167 mls/hr Vancomycin/Sodium Chloride (Vancomycin 1 Gm/Ns 200 Ml) 1 gm in 200 mls @ 133 mls/hr IVPB MWF [facility]; Protocol Stop: 06/08/18 09:01 Last Admin: 06/03/18 08:19 Dose: 133 mls/hr Gentamicin Sulfate 80 mg/ (Sodium Chloride) 102 mls @ 100 mls/hr IVPB [facility] [place]; Protocol Insulin Detemir (Levemir) 12 unit SC DAILY [facility] Last Admin: 06/04/18 09:08 Dose: Not Given Insulin Human Regular (Novolin R) 0 unit SC ACHS [facility]; Protocol Last Admin: 06/04/18 21:47 Dose: Not Given Ipratropium [place] (Atrovent) 0.5 mg IH RQ6 PRN PRN Reason: Shortness of Breath Last Admin: 06/04/18 13:50 Dose: 0.5 mg Levothyroxine Sodium (Synthroid) 75 mcg PO DAILY@0630 [facility] Last Admin: 06/05/18 05:32 Dose: 75 mcg Metoprolol Tartrate (Lopressor) 25 mg PO BID [facility] Last Admin: 06/04/18 18:02 Dose: 25 mg Oseltamivir Phosphate (Tamiflu Susp) 30 mg PO Q24H [facility]; Protocol Stop: 06/08/18 10:01 Rosuvastatin Calcium (Crestor) 5 mg PO HS [facility] Last Admin: 06/04/18 22:20 Dose: 5 mg Tiotropium [place] (Spiriva) 18 mcg INH RQ24 [facility] Last Admin: 06/04/18 07:45 Dose: 18 mcg - Labs Labs: 06/03/18 10:15 06/03/18 10:15 - Constitutional Appears: No Acute Distress, Chronically Ill - Head Exam Head Exam: ATRAUMATIC, NORMAL INSPECTION - Eye Exam Eye Exam: EOMI - ENT Exam ENT Exam: Mucous Membranes Moist - Neck Exam Neck Exam: Full ROM. absent: Lymphadenopathy - Respiratory Exam Respiratory Exam: Rhonchi. absent: Accessory Muscle Use - Cardiovascular Exam Cardiovascular Exam: REGULAR RHYTHM. absent: Rubs - GI/Abdominal Exam GI & Abdominal Exam: Soft, Normal Bowel Sounds. absent: Tenderness - Extremities Exam Extremities Exam: absent: Pedal Edema Assessment and Plan - Assessment and Plan (Free Text) Assessment: maint HD, for HD today monitor afib on treatment for influenza multiple myeloma history
[2018-06-05] MEDS: (Novolin R) Insulin Human Regular 100 units/ml vial SC SCH ×4 (07:27→21:50)
[2018-06-05] MEDS: Tiotropium 18 mcg Cap For Inhalation INH SCH (07:30)
[2018-06-05] MEDS: Ipratropium 0.02% Inhal Soln (0.5 mg/2.5 ml) UD IH PRN ×2 (07:30→19:54)
[2018-06-05] MEDS: Insulin Detemir 100 units/ml Vial (Levemir) SC SCH (09:40)
[2018-06-05] MEDS ORDERED: Oseltamivir 6 MG/ML PO SCH (10:00)
--- NOTE | 2018-06-05 13:51 | CP.PCM.PN ---
Subjective - Date & Time of Evaluation Date of Evaluation: 06/05/18 Time of Evaluation: 09:00 - Subjective Subjective: improving less fever Objective - Vital Signs/Intake and Output Vital Signs (last 24 hours): Temp Pulse Resp BP Pulse Ox 98.4 F 82 20 123/65 97 06/05/18 07:01 06/05/18 12:18 06/05/18 07:01 06/05/18 07:01 06/05/18 07:01 - Medications Medications: Current Medications Acetaminophen (Tylenol 325mg Tab) 650 mg PO Q6 PRN PRN Reason: Fever >100.4 F Amiodarone HCl (Cordarone) 200 mg PO DAILY [facility] Last Admin: 06/05/18 09:38 Dose: Not Given Apixaban (Eliquis) 2.5 mg PO BID [facility] Last Admin: 06/05/18 09:38 Dose: Not Given Budesonide (Pulmicort Respules) 1 mg IH BID [facility] Calcium Acetate (Phoslo) 667 mg PO TID [facility] Last Admin: 06/05/18 09:40 Dose: Not Given Docusate Sodium (Colace) 100 mg PO TID [facility] Last Admin: 06/05/18 09:38 Dose: Not Given Epoetin Eddie (Procrit) 10,000 unit IV MWF [facility] Last Admin: 06/03/18 10:14 Dose: 10,000 unit Famotidine (Pepcid) 20 mg PO DAILY [facility] Last Admin: 06/05/18 09:40 Dose: Not Given Ferrous Sulfate (Feosol) 325 mg PO DAILY [facility] Last Admin: 06/05/18 09:39 Dose: Not Given Fluticasone/Vilanterol (Breo Ellipta 200-25 Mcg Inh) 1 puff INH DAILY [facility] Glipizide (Glucotrol) 10 mg PO ACBD [facility] Last Admin: 06/05/18 08:31 Dose: 10 mg Guaifenesin (Robitussin) 100 mg PO Q4H PRN PRN Reason: Cough Last Admin: 06/05/18 11:31 Dose: 100 mg Moxifloxacin HCl (Avelox Iv 400mg/250ml Ns) 400 mg in 250 mls @ 167 mls/hr IVPB Q24H [facility]; Protocol Last Admin: 06/04/18 10:11 Dose: 167 mls/hr Vancomycin/Sodium Chloride (Vancomycin 1 Gm/Ns 200 Ml) 1 gm in 200 mls @ 133 mls/hr IVPB [facility]; Protocol Stop: 06/08/18 09:01 Last Admin: 06/03/18 08:19 Dose: 133 mls/hr Gentamicin Sulfate 80 mg/ (Sodium Chloride) 102 mls @ 100 mls/hr IVPB [facility] [place]; Protocol Insulin Detemir (Levemir) 12 unit SC DAILY [facility] Last Admin: 06/05/18 09:40 Dose: Not Given Insulin Human Regular (Novolin R) 0 unit SC ACHS [facility]; Protocol Last Admin: 06/05/18 11:32 Dose: Not Given Ipratropium [place] (Atrovent) 0.5 mg IH RQ6 PRN PRN Reason: Shortness of Breath Last Admin: 06/05/18 07:30 Dose: 0.5 mg Levothyroxine Sodium (Synthroid) 75 mcg PO DAILY@0630 [facility] Last Admin: 06/05/18 05:32 Dose: 75 mcg Metoprolol Tartrate (Lopressor) 25 mg PO BID [facility] Last Admin: 06/05/18 09:40 Dose: Not Given Oseltamivir Phosphate (Tamiflu Susp) 30 mg PO Q24H [facility]; Protocol Stop: 06/08/18 10:01 Rosuvastatin Calcium (Crestor) 5 mg PO HS [facility] Last Admin: 06/04/18 22:20 Dose: 5 mg Tiotropium [place] (Spiriva) 18 mcg INH RQ24 [facility] Last Admin: 06/05/18 07:30 Dose: 18 mcg - Labs Labs: 06/03/18 10:15 06/03/18 10:15 - Constitutional Appears: No Acute Distress, Cachectic, Chronically Ill - Head Exam Head Exam: ATRAUMATIC, NORMAL INSPECTION, NORMOCEPHALIC - Eye Exam Eye Exam: EOMI, Normal appearance, PERRL Pupil Exam: NORMAL ACCOMODATION, PERRL - ENT Exam ENT Exam: Mucous Membranes Moist, Normal Exam - Neck Exam Neck Exam: Full ROM, Normal Inspection. absent: Lymphadenopathy - Respiratory Exam Respiratory Exam: Clear to Ausculation Bilateral, NORMAL BREATHING PATTERN - Cardiovascular Exam Cardiovascular Exam: REGULAR RHYTHM, +S1, +S2. absent: Murmur - GI/Abdominal Exam GI & Abdominal Exam: Soft, Normal Bowel Sounds. absent: Tenderness - Rectal Exam Rectal Exam: Deferred - Exam Exam: NORMAL INSPECTION - Extremities Exam Extremities Exam: Full ROM, Normal Capillary Refill, Normal Inspection. absent: Joint Swelling, Pedal Edema - Back Exam Back Exam: NORMAL INSPECTION - Neurological Exam Neurological Exam: Alert, Awake, CN II-XII Intact, Normal Gait, Oriented x3 - Psychiatric Exam Psychiatric exam: Normal Affect, Normal Mood - Skin Skin Exam: Dry, Intact, Normal Color, Warm Assessment and Plan (1) Anemia Status: Acute (2) ESRD (end stage renal disease) on dialysis Status: Acute (3) Acute bronchitis Status: Acute (4) Bronchitis Status: Acute (5) COPD (chronic obstructive pulmonary disease) Status: Acute (6) Leucocytosis Status: Acute (7) Myeloma kidney Status: Acute (8) Atrial fibrillation Status: Chronic (9) Chronic diastolic (congestive) heart failure Status: Chronic (10) Diabetes 1.5, managed as type 2 Status: Chronic - Assessment and Plan (Free Text) Assessment: s/p code sepsis 'resp infection Influenza cont IV Vanco x 3 doses d/c Genta
[2018-06-05] MEDS: Promethazine/Cod 6.25mg-10mg/5ml Syr UD PO PRN (14:11)
--- NOTE | 2018-06-05 14:33 | CP.PCM.PN ---
Subjective - Date & Time of Evaluation Date of Evaluation: 06/05/18 Time of Evaluation: 14:33 - Subjective Subjective: Patient is seen and examined No events overnight Objective - Vital Signs/Intake and Output Vital Signs (last 24 hours): Temp Pulse Resp BP Pulse Ox 98.4 F 82 20 123/65 97 06/05/18 07:01 06/05/18 12:18 06/05/18 07:01 06/05/18 07:01 06/05/18 07:01 - Medications Medications: Current Medications Acetaminophen (Tylenol 325mg Tab) 650 mg PO Q6 PRN PRN Reason: Fever >100.4 F Amiodarone HCl (Cordarone) 200 mg PO DAILY [facility] Last Admin: 06/05/18 09:38 Dose: Not Given Apixaban (Eliquis) 2.5 mg PO BID [facility] Last Admin: 06/05/18 09:38 Dose: Not Given Budesonide (Pulmicort Respules) 1 mg IH BID [facility] Calcium Acetate (Phoslo) 667 mg PO TID [facility] Last Admin: 06/05/18 14:13 Dose: Not Given Docusate Sodium (Colace) 100 mg PO TID [facility] Last Admin: 06/05/18 14:14 Dose: Not Given Epoetin [place] (Procrit) 10,000 unit IV MWF [facility] Last Admin: 06/03/18 10:14 Dose: 10,000 unit Famotidine (Pepcid) 20 mg PO DAILY [facility] Last Admin: 06/05/18 09:40 Dose: Not Given Ferrous Sulfate (Feosol) 325 mg PO DAILY [facility] Last Admin: 06/05/18 09:39 Dose: Not Given Fluticasone/Vilanterol (Breo Ellipta 200-25 Mcg Inh) 1 puff INH DAILY [facility] Glipizide (Glucotrol) 10 mg PO ACBD [facility] Last Admin: 06/05/18 08:31 Dose: 10 mg Guaifenesin (Robitussin) 100 mg PO Q4H PRN PRN Reason: Cough Last Admin: 06/05/18 11:31 Dose: 100 mg Moxifloxacin HCl (Avelox Iv 400mg/250ml Ns) 400 mg in 250 mls @ 167 mls/hr IVPB Q24H [facility]; Protocol Last Admin: 06/04/18 10:11 Dose: 167 mls/hr Vancomycin/Sodium Chloride (Vancomycin 1 Gm/Ns 200 Ml) 1 gm in 200 mls @ 133 mls/hr IVPB MWF [facility]; Protocol Stop: 06/08/18 09:01 Last Admin: 06/03/18 08:19 Dose: 133 mls/hr Insulin Detemir (Levemir) 12 unit SC DAILY [facility] Last Admin: 06/05/18 09:40 Dose: Not Given Insulin Human Regular (Novolin R) 0 unit SC ACHS [facility]; Protocol Last Admin: 06/05/18 11:32 Dose: Not Given Ipratropium [place] (Atrovent) 0.5 mg IH RQ6 PRN PRN Reason: Shortness of Breath Last Admin: 06/05/18 07:30 Dose: 0.5 mg Levothyroxine Sodium (Synthroid) 75 mcg PO DAILY@0630 [facility] Last Admin: 06/05/18 05:32 Dose: 75 mcg Metoprolol Tartrate (Lopressor) 25 mg PO BID [facility] Last Admin: 06/05/18 09:40 Dose: Not Given Oseltamivir Phosphate (Tamiflu Susp) 30 mg PO Q24H [facility]; Protocol Stop: 06/08/18 10:01 Promethazine HCl/Codeine (Phenergan/Codeine Oral Syrup) 5 ml PO Q6 PRN PRN Reason: Cough Stop: 06/07/18 13:56 Last Admin: 06/05/18 14:11 Dose: 5 ml Rosuvastatin Calcium (Crestor) 5 mg PO HS [facility] Last Admin: 06/04/18 22:20 Dose: 5 mg Tiotropium [place] (Spiriva) 18 mcg INH RQ24 [facility] Last Admin: 06/05/18 07:30 Dose: 18 mcg - Labs Labs: 06/03/18 10:15 06/03/18 10:15 - Head Exam Head Exam: NORMAL INSPECTION - Eye Exam Eye Exam: Normal appearance - ENT Exam ENT Exam: Mucous Membranes Moist - Respiratory Exam Respiratory Exam: Clear to Ausculation Bilateral - Cardiovascular Exam Cardiovascular Exam: REGULAR RHYTHM, +S1, +S2 - GI/Abdominal Exam GI & Abdominal Exam: Soft, Normal Bowel Sounds - Extremities Exam Extremities Exam: Normal Inspection Assessment and Plan (1) Anemia Status: Acute (2) ESRD (end stage renal disease) on dialysis Status: Acute (3) COPD (chronic obstructive pulmonary disease) Status: Acute - Assessment and Plan (Free Text) Plan: Brio Ellipta 200/25 mcg 1 puff daily Spiriva 18 mcg 2 puff daily Bronchodilators HD as per schedule DVT/GI prophalaxis
[2018-06-05] MEDS: Epoetin Alfa 10,000 unit/ml Dialysis IV SCH (16:56)
--- NOTE | 2018-06-05 17:22 | CP.PCM.PN ---
Subjective - Date & Time of Evaluation Date of Evaluation: 06/05/18 Time of Evaluation: 09:30 - Subjective Subjective: clinically same Objective - Vital Signs/Intake and Output Vital Signs (last 24 hours): Temp Pulse Resp BP Pulse Ox 97.7 F 82 16 103/53 L 100 06/05/18 15:20 06/05/18 15:20 06/05/18 15:40 06/05/18 16:40 06/05/18 15:40 Intake and Output: 06/05/18 06/05/18 06:59 18:59 Intake Total 600 Balance 600 - Medications Medications: Current Medications Acetaminophen (Tylenol 325mg Tab) 650 mg PO Q6 PRN PRN Reason: Fever >100.4 F Amiodarone HCl (Cordarone) 200 mg PO DAILY [facility] Last Admin: 06/05/18 09:38 Dose: Not Given Apixaban (Eliquis) 2.5 mg PO BID [facility] Last Admin: 06/05/18 09:38 Dose: Not Given Budesonide (Pulmicort Respules) 1 mg IH BID [facility] Calcium Acetate (Phoslo) 667 mg PO TID [facility] Last Admin: 06/05/18 14:13 Dose: Not Given Docusate Sodium (Colace) 100 mg PO TID [facility] Last Admin: 06/05/18 14:14 Dose: Not Given Epoetin [place] (Procrit) 10,000 unit IV MWF [facility] Last Admin: 06/05/18 16:56 Dose: 10,000 unit Famotidine (Pepcid) 20 mg PO DAILY [facility] Last Admin: 06/05/18 09:40 Dose: Not Given Ferrous Sulfate (Feosol) 325 mg PO DAILY [facility] Last Admin: 06/05/18 09:39 Dose: Not Given Fluticasone/Vilanterol (Breo Ellipta 200-25 Mcg Inh) 1 puff INH DAILY [facility] Glipizide (Glucotrol) 10 mg PO ACBD [facility] Last Admin: 06/05/18 08:31 Dose: 10 mg Guaifenesin (Robitussin) 100 mg PO Q4H PRN PRN Reason: Cough Last Admin: 06/05/18 11:31 Dose: 100 mg Moxifloxacin HCl (Avelox Iv 400mg/250ml Ns) 400 mg in 250 mls @ 167 mls/hr IVPB Q24H [facility]; Protocol Last Admin: 06/04/18 10:11 Dose: 167 mls/hr Vancomycin/Sodium Chloride (Vancomycin 1 Gm/Ns 200 Ml) 1 gm in 200 mls @ 133 mls/hr IVPB MWF [facility]; Protocol Stop: 06/08/18 09:01 Last Admin: 06/03/18 08:19 Dose: 133 mls/hr Insulin Detemir (Levemir) 12 unit SC DAILY [facility] Last Admin: 06/05/18 09:40 Dose: Not Given Insulin Human Regular (Novolin R) 0 unit SC ACHS [facility] [place]; Protocol Last Admin: 06/05/18 11:32 Dose: Not Given Ipratropium [place] (Atrovent) 0.5 mg IH RQ6 PRN PRN Reason: Shortness of Breath Last Admin: 06/05/18 07:30 Dose: 0.5 mg Levothyroxine Sodium (Synthroid) 75 mcg PO DAILY@0630 [facility] [place] [place] Last Admin: 06/05/18 05:32 Dose: 75 mcg Metoprolol Tartrate (Lopressor) 25 mg PO BID [facility] [place] [place] Last Admin: 06/05/18 09:40 Dose: Not Given Oseltamivir Phosphate (Tamiflu Susp) 30 mg PO 2000 [facility] [place] [place]; Protocol Stop: 06/08/18 10:01 Promethazine HCl/Codeine (Phenergan/Codeine Oral Syrup) 5 ml PO Q6 PRN PRN Reason: Cough Stop: 06/07/18 13:56 Last Admin: 06/05/18 14:11 Dose: 5 ml Rosuvastatin Calcium (Crestor) 5 mg PO HS [facility] [place] [place] Last Admin: 06/04/18 22:20 Dose: 5 mg Tiotropium [place] (Spiriva) 18 mcg INH RQ24 [facility] [place] Last Admin: 06/05/18 07:30 Dose: 18 mcg - Labs Labs: 06/03/18 10:15 06/03/18 10:15
[2018-06-05] MEDS: Moxifloxacin IV 400mg/250ml NS 400 MG/250 ML BAG IVPB SCH (18:52)
[2018-06-05] MEDS: Vancomycin 1 gm/NS 200 ml 1 GM/200 ML BAG IVPB SCH (18:55)
[2018-06-05] MEDS: Oseltamivir 6 MG/ML PO SCH (20:55)
[2018-06-06] MEDS: Levothyroxine 75 MCG TAB PO SCH (06:25)
[2018-06-06] MEDS: (Novolin R) Insulin Human Regular 100 units/ml vial SC SCH ×4 (07:21→21:26)
[2018-06-06] MEDS: Tiotropium 18 mcg Cap For Inhalation INH SCH (10:31)
[2018-06-06] MEDS: Promethazine/Cod 6.25mg-10mg/5ml Syr UD PO PRN ×2 (10:34→19:07)
[2018-06-06] MEDS: Insulin Detemir 100 units/ml Vial (Levemir) SC SCH (10:35)
[2018-06-06] MEDS: Moxifloxacin IV 400mg/250ml NS 400 MG/250 ML BAG IVPB SCH (10:38)
--- NOTE | 2018-06-06 12:41 | CP.PCM.PN ---
Subjective - Date & Time of Evaluation Date of Evaluation: 06/06/18 Time of Evaluation: 12:38 - Subjective Subjective: pt seen and examined complaining about skin tear over dialysis access site no SOB cough better no chest pain or palpitations ROS- as per HPI, other than that 10 point ROS negative Objective - Vital Signs/Intake and Output Vital Signs (last 24 hours): Temp Pulse Resp BP Pulse Ox 97.8 F 79 20 120/58 L 95 06/06/18 07:46 06/06/18 07:46 06/06/18 07:46 06/06/18 10:35 06/06/18 07:46 Intake and Output: 06/06/18 06/06/18 06:59 18:59 Intake Total 550 Balance 550 - Medications Medications: Current Medications Acetaminophen (Tylenol 325mg Tab) 650 mg PO Q6 PRN PRN Reason: Fever >100.4 F Amiodarone HCl (Cordarone) 200 mg PO DAILY [facility] Last Admin: 06/06/18 10:35 Dose: 200 mg Apixaban (Eliquis) 2.5 mg PO BID [facility] Last Admin: 06/06/18 10:35 Dose: 2.5 mg Budesonide (Pulmicort Respules) 1 mg IH BID [facility] Calcium Acetate (Phoslo) 667 mg PO TID [facility] Last Admin: 06/06/18 10:35 Dose: 667 mg Docusate Sodium (Colace) 100 mg PO TID [facility] Last Admin: 06/06/18 10:34 Dose: 100 mg Epoetin [place] (Procrit) 10,000 unit IV MWF [facility] Last Admin: 06/05/18 16:56 Dose: 10,000 unit Famotidine (Pepcid) 20 mg PO DAILY [facility] Last Admin: 06/06/18 10:34 Dose: 20 mg Ferrous Sulfate (Feosol) 325 mg PO DAILY [facility] Last Admin: 06/06/18 10:34 Dose: 325 mg Fluticasone/Vilanterol (Breo Ellipta 200-25 Mcg Inh) 1 puff INH DAILY [facility] Glipizide (Glucotrol) 10 mg PO ACBD [facility] Last Admin: 06/06/18 08:45 Dose: 10 mg Guaifenesin (Robitussin) 100 mg PO Q4H PRN PRN Reason: Cough Last Admin: 06/05/18 11:31 Dose: 100 mg Vancomycin/Sodium Chloride (Vancomycin 1 Gm/Ns 200 Ml) 1 gm in 200 mls @ 133 mls/hr IVPB MWF [facility]; Protocol Stop: 06/08/18 09:01 Last Admin: 06/05/18 18:55 Dose: 133 mls/hr Insulin Detemir (Levemir) 12 unit SC DAILY [facility] Last Admin: 06/06/18 10:35 Dose: Not Given Insulin Human Regular (Novolin R) 0 unit SC ACHS [facility]; Protocol Last Admin: 06/06/18 11:52 Dose: Not Given Ipratropium [place] (Atrovent) 0.5 mg IH RQ6 PRN PRN Reason: Shortness of Breath Last Admin: 06/05/18 19:54 Dose: 0.5 mg Levothyroxine Sodium (Synthroid) 75 mcg PO DAILY@0630 [facility] Last Admin: 06/06/18 06:25 Dose: 75 mcg Metoprolol Tartrate (Lopressor) 25 mg PO BID [facility] Last Admin: 06/06/18 10:35 Dose: 25 mg Oseltamivir Phosphate (Tamiflu Susp) 30 mg PO 2000 [facility]; Protocol Stop: 06/08/18 10:01 Last Admin: 06/05/18 20:55 Dose: 30 mg Promethazine HCl/Codeine (Phenergan/Codeine Oral Syrup) 5 ml PO Q6 PRN PRN Reason: Cough Stop: 06/07/18 13:56 Last Admin: 06/06/18 10:34 Dose: 5 ml Rosuvastatin Calcium (Crestor) 5 mg PO HS [facility] Last Admin: 06/05/18 21:09 Dose: 5 mg Tiotropium [place] (Spiriva) 18 mcg INH RQ24 [facility] Last Admin: 06/06/18 10:31 Dose: 18 mcg - Labs Labs: 06/03/18 10:15 06/03/18 10:15 - Constitutional Appears: Non-toxic, Chronically Ill - Head Exam Head Exam: ATRAUMATIC, NORMOCEPHALIC - Eye Exam Eye Exam: EOMI, PERRL - ENT Exam ENT Exam: Mucous Membranes Moist - Neck Exam Neck Exam: Full ROM - Respiratory Exam Respiratory Exam: Rhonchi. absent: Rales, Wheezes - Cardiovascular Exam Cardiovascular Exam: Irregular Rhythm, +S1, +S2 - GI/Abdominal Exam GI & Abdominal Exam: Soft, Normal Bowel Sounds. absent: Distended, Tenderness - Extremities Exam Extremities Exam: Full ROM. absent: Pedal Edema - Neurological Exam Neurological Exam: Alert, Awake, Oriented x3 - Psychiatric Exam Psychiatric exam: Anxious - Skin Skin Exam: Normal Color, Warm Assessment and Plan (1) Anemia Status: Acute (2) ESRD (end stage renal disease) on dialysis Status: Acute (3) Atrial fibrillation with controlled ventricular response Status: Acute (4) CHF (congestive heart failure) Status: Acute (5) COPD (chronic obstructive pulmonary disease) Status: Acute (6) Multiple myeloma Status: Acute (7) Leucocytosis Status: Acute (8) Influenza Status: Acute - Assessment and Plan (Free Text) Plan: on isolation for influenza clinically better HD nurses to address access site continue ABx switch to pO to avoid volume load check labs with HD
--- NOTE | 2018-06-06 14:08 | CP.PCM.PN ---
Subjective - Date & Time of Evaluation Date of Evaluation: 06/06/18 Time of Evaluation: 14:08 - Subjective Subjective: PATIENT SEEN AND EXAMINED AT THE BEDSIDE DC CANCEL DUE FEVER AND POSITIVE URINE CULTURE Objective - Vital Signs/Intake and Output Vital Signs (last 24 hours): Temp Pulse Resp BP Pulse Ox 97.8 F 79 20 120/58 L 95 06/06/18 07:46 06/06/18 07:46 06/06/18 07:46 06/06/18 10:35 06/06/18 07:46 Intake and Output: 06/06/18 06/06/18 06:59 18:59 Intake Total 550 Balance 550 - Medications Medications: Current Medications Acetaminophen (Tylenol 325mg Tab) 650 mg PO Q6 PRN PRN Reason: Fever >100.4 F Amiodarone HCl (Cordarone) 200 mg PO DAILY [facility] Last Admin: 06/06/18 10:35 Dose: 200 mg Apixaban (Eliquis) 2.5 mg PO BID [facility] Last Admin: 06/06/18 10:35 Dose: 2.5 mg Budesonide (Pulmicort Respules) 1 mg IH BID [facility] Calcium Acetate (Phoslo) 667 mg PO TID [facility] Last Admin: 06/06/18 13:33 Dose: 667 mg Docusate Sodium (Colace) 100 mg PO TID [facility] Last Admin: 06/06/18 13:34 Dose: 100 mg Epoetin [place] (Procrit) 10,000 unit IV MWF [facility] Last Admin: 06/05/18 16:56 Dose: 10,000 unit Famotidine (Pepcid) 20 mg PO DAILY [facility] Last Admin: 06/06/18 10:34 Dose: 20 mg Ferrous Sulfate (Feosol) 325 mg PO DAILY [facility] Last Admin: 06/06/18 10:34 Dose: 325 mg Fluticasone/Vilanterol (Breo Ellipta 200-25 Mcg Inh) 1 puff INH DAILY [facility] Glipizide (Glucotrol) 10 mg PO ACBD [facility] Last Admin: 06/06/18 08:45 Dose: 10 mg Guaifenesin (Robitussin) 100 mg PO Q4H PRN PRN Reason: Cough Last Admin: 06/05/18 11:31 Dose: 100 mg Vancomycin/Sodium Chloride (Vancomycin 1 Gm/Ns 200 Ml) 1 gm in 200 mls @ 133 mls/hr IVPB MWF [facility]; Protocol Stop: 06/08/18 09:01 Last Admin: 06/05/18 18:55 Dose: 133 mls/hr Insulin Detemir (Levemir) 12 unit SC DAILY [facility] Last Admin: 06/06/18 10:35 Dose: Not Given Insulin Human Regular (Novolin R) 0 unit SC ACHS [facility]; Protocol Last Admin: 06/06/18 11:52 Dose: Not Given Ipratropium [place] (Atrovent) 0.5 mg IH RQ6 PRN PRN Reason: Shortness of Breath Last Admin: 06/05/18 19:54 Dose: 0.5 mg Levothyroxine Sodium (Synthroid) 75 mcg PO DAILY@0630 [facility] Last Admin: 06/06/18 06:25 Dose: 75 mcg Metoprolol Tartrate (Lopressor) 25 mg PO BID [facility] Last Admin: 06/06/18 10:35 Dose: 25 mg Oseltamivir Phosphate (Tamiflu Susp) 30 mg PO 2000 [facility]; Protocol Stop: 06/08/18 10:01 Last Admin: 06/05/18 20:55 Dose: 30 mg Promethazine HCl/Codeine (Phenergan/Codeine Oral Syrup) 5 ml PO Q6 PRN PRN Reason: Cough Stop: 06/07/18 13:56 Last Admin: 06/06/18 10:34 Dose: 5 ml Rosuvastatin Calcium (Crestor) 5 mg PO HS [facility] Last Admin: 06/05/18 21:09 Dose: 5 mg Tiotropium [place] (Spiriva) 18 mcg INH RQ24 [facility] Last Admin: 06/06/18 10:31 Dose: 18 mcg - Labs Labs: 06/03/18 10:15 06/03/18 10:15 Assessment and Plan - Assessment and Plan (Free Text) Assessment: FOLLOW UP WITH DR Denise COX IN HIS OFFICE ------CALL FOR APPOINTMENT FOLLOW UP WITH DR KINCAID IN HIS OFFICE-------CALL FOR APPOINTMENT CONTINUE HOME MEDICATION NEW PRESCRIPTION GIVEN TAMIFLU 30 MG PO DAILY VANCO 1 G IVPB MWF X 3DOSE AMIODARONE 200 MG ONE TAB PO DAILY STOP TAKING AMIODARONE TWICE A DAY ACTIVITY TOLERATED HEMODIALYSIS SCHEDULE CALL DR Denise COX OR GO TO THE EMERGENCY ROOM IF SYMPTOM RETURN OR WORSENING
--- NOTE | 2018-06-06 18:30 | CP.PCM.PN ---
Subjective - Date & Time of Evaluation Date of Evaluation: 06/06/18 Time of Evaluation: 18:30 Objective - Vital Signs/Intake and Output Vital Signs (last 24 hours): Temp Pulse Resp BP Pulse Ox 100.8 F H 77 18 110/72 99 06/06/18 17:58 06/06/18 15:00 06/06/18 15:00 06/06/18 17:58 06/06/18 15:00 Intake and Output: 06/06/18 06/06/18 06:59 18:59 Intake Total 550 850 Balance 550 850 - Medications Medications: Current Medications Acetaminophen (Tylenol 325mg Tab) 650 mg PO Q6 PRN PRN Reason: Fever >100.4 F Last Admin: 06/06/18 17:58 Dose: 650 mg Amiodarone HCl (Cordarone) 200 mg PO DAILY [facility] Last Admin: 06/06/18 10:35 Dose: 200 mg Apixaban (Eliquis) 2.5 mg PO BID [facility] Last Admin: 06/06/18 17:58 Dose: 2.5 mg Budesonide (Pulmicort Respules) 1 mg IH BID [facility] Calcium Acetate (Phoslo) 667 mg PO TID [facility] Last Admin: 06/06/18 17:58 Dose: 667 mg Docusate Sodium (Colace) 100 mg PO TID [facility] Last Admin: 06/06/18 17:57 Dose: 100 mg Epoetin [place] (Procrit) 10,000 unit IV MWF [facility] Last Admin: 06/05/18 16:56 Dose: 10,000 unit Famotidine (Pepcid) 20 mg PO DAILY [facility] Last Admin: 06/06/18 10:34 Dose: 20 mg Ferrous Sulfate (Feosol) 325 mg PO DAILY [facility] Last Admin: 06/06/18 10:34 Dose: 325 mg Fluticasone/Vilanterol (Breo Ellipta 200-25 Mcg Inh) 1 puff INH DAILY [facility] Glipizide (Glucotrol) 10 mg PO ACBD [facility] Last Admin: 06/06/18 17:52 Dose: Not Given Guaifenesin (Robitussin) 100 mg PO Q4H PRN PRN Reason: Cough Last Admin: 06/05/18 11:31 Dose: 100 mg Vancomycin/Sodium Chloride (Vancomycin 1 Gm/Ns 200 Ml) 1 gm in 200 mls @ 133 mls/hr IVPB MWF [facility]; Protocol Stop: 06/08/18 09:01 Last Admin: 06/05/18 18:55 Dose: 133 mls/hr Insulin Detemir (Levemir) 12 unit SC DAILY [facility] Last Admin: 06/06/18 10:35 Dose: Not Given Insulin Human Regular (Novolin R) 0 unit SC ACHS [facility]; Protocol Last Admin: 06/06/18 16:44 Dose: Not Given Ipratropium [place] (Atrovent) 0.5 mg IH RQ6 PRN PRN Reason: Shortness of Breath Last Admin: 06/05/18 19:54 Dose: 0.5 mg Levothyroxine Sodium (Synthroid) 75 mcg PO DAILY@0630 [facility] Last Admin: 06/06/18 06:25 Dose: 75 mcg Metoprolol Tartrate (Lopressor) 25 mg PO BID [facility] Last Admin: 06/06/18 17:58 Dose: 25 mg Oseltamivir Phosphate (Tamiflu Susp) 30 mg PO 2000 [facility]; Protocol Stop: 06/08/18 10:01 Last Admin: 06/05/18 20:55 Dose: 30 mg Promethazine HCl/Codeine (Phenergan/Codeine Oral Syrup) 5 ml PO Q6 PRN PRN Reason: Cough Stop: 06/07/18 13:56 Last Admin: 06/06/18 10:34 Dose: 5 ml Rosuvastatin Calcium (Crestor) 5 mg PO HS [facility] Last Admin: 06/05/18 21:09 Dose: 5 mg Tiotropium [place] (Spiriva) 18 mcg INH RQ24 [facility] Last Admin: 06/06/18 10:31 Dose: 18 mcg - Labs Labs: 06/03/18 10:15 06/03/18 10:15 Assessment and Plan (1) Anemia Status: Acute (2) ESRD (end stage renal disease) on dialysis Status: Acute (3) COPD (chronic obstructive pulmonary disease) Status: Acute
[2018-06-06] MEDS: Oseltamivir 6 MG/ML PO SCH (19:07)
[2018-06-06] MEDS: Ipratropium 0.02% Inhal Soln (0.5 mg/2.5 ml) UD IH PRN (19:27)
--- NOTE | 2018-06-06 19:35 | CP.PCM.PN ---
Subjective - Date & Time of Evaluation Date of Evaluation: 06/06/18 Time of Evaluation: 07:00 - Subjective Subjective: fever persists will reculture cancel discharge Objective - Vital Signs/Intake and Output Vital Signs (last 24 hours): Temp Pulse Resp BP Pulse Ox 100.8 F H 77 18 110/72 99 06/06/18 17:58 06/06/18 15:00 06/06/18 15:00 06/06/18 17:58 06/06/18 15:00 Intake and Output: 06/06/18 06/07/18 18:59 06:59 Intake Total 850 Balance 850 - Medications Medications: Current Medications Acetaminophen (Tylenol 325mg Tab) 650 mg PO Q6 PRN PRN Reason: Fever >100.4 F Last Admin: 06/06/18 17:58 Dose: 650 mg Amiodarone HCl (Cordarone) 200 mg PO DAILY [facility] Last Admin: 06/06/18 10:35 Dose: 200 mg Apixaban (Eliquis) 2.5 mg PO BID [facility] Last Admin: 06/06/18 17:58 Dose: 2.5 mg Budesonide (Pulmicort Respules) 1 mg IH BID [facility] Calcium Acetate (Phoslo) 667 mg PO TID [facility] Last Admin: 06/06/18 17:58 Dose: 667 mg Docusate Sodium (Colace) 100 mg PO TID [facility] Last Admin: 06/06/18 17:57 Dose: 100 mg Epoetin [place] (Procrit) 10,000 unit IV MWF [facility] Last Admin: 06/05/18 16:56 Dose: 10,000 unit Famotidine (Pepcid) 20 mg PO DAILY [facility] Last Admin: 06/06/18 10:34 Dose: 20 mg Ferrous Sulfate (Feosol) 325 mg PO DAILY [facility] Last Admin: 06/06/18 10:34 Dose: 325 mg Fluticasone/Vilanterol (Breo Ellipta 200-25 Mcg Inh) 1 puff INH DAILY [facility] Glipizide (Glucotrol) 10 mg PO ACBD [facility] Last Admin: 06/06/18 17:52 Dose: Not Given Guaifenesin (Robitussin) 100 mg PO Q4H PRN PRN Reason: Cough Last Admin: 06/05/18 11:31 Dose: 100 mg Vancomycin/Sodium Chloride (Vancomycin 1 Gm/Ns 200 Ml) 1 gm in 200 mls @ 133 mls/hr IVPB MWF [facility]; Protocol Stop: 06/08/18 09:01 Last Admin: 06/05/18 18:55 Dose: 133 mls/hr Insulin Detemir (Levemir) 12 unit SC DAILY [facility] Last Admin: 06/06/18 10:35 Dose: Not Given Insulin Human Regular (Novolin R) 0 unit SC [facility]; Protocol Last Admin: 06/06/18 16:44 Dose: Not Given Ipratropium [place] (Atrovent) 0.5 mg IH RQ6 PRN PRN Reason: Shortness of Breath Last Admin: 06/06/18 19:27 Dose: 0.5 mg Levothyroxine Sodium (Synthroid) 75 mcg PO DAILY@0630 [facility] Last Admin: 06/06/18 06:25 Dose: 75 mcg Metoprolol Tartrate (Lopressor) 25 mg PO BID [facility] Last Admin: 06/06/18 17:58 Dose: 25 mg Oseltamivir Phosphate (Tamiflu Susp) 30 mg PO 2000 [facility]; Protocol Stop: 06/08/18 10:01 Last Admin: 06/06/18 19:07 Dose: 30 mg Promethazine HCl/Codeine (Phenergan/Codeine Oral Syrup) 5 ml PO Q6 PRN PRN Reason: Cough Stop: 06/07/18 13:56 Last Admin: 06/06/18 19:07 Dose: 5 ml Rosuvastatin Calcium (Crestor) 5 mg PO [facility] Last Admin: 06/05/18 21:09 Dose: 5 mg Tiotropium [place] (Spiriva) 18 mcg INH RQ24 [facility] Last Admin: 06/06/18 10:31 Dose: 18 mcg - Labs Labs: 06/03/18 10:15 06/03/18 10:15 - Constitutional Appears: Non-toxic, Chronically Ill - Head Exam Head Exam: NORMOCEPHALIC - Eye Exam Eye Exam: absent: Scleral icterus - ENT Exam ENT Exam: Mucous Membranes Dry - Neck Exam Neck Exam: absent: Lymphadenopathy - Respiratory Exam Respiratory Exam: Decreased Breath Sounds - Cardiovascular Exam Cardiovascular Exam: REGULAR RHYTHM - GI/Abdominal Exam GI & Abdominal Exam: Distended, Soft Assessment and Plan (1) Anemia Status: Acute (2) ESRD (end stage renal disease) on dialysis Status: Acute (3) Acute bronchitis Status: Acute (4) Bronchitis Status: Acute (5) COPD (chronic obstructive pulmonary disease) Status: Acute (6) Leucocytosis Status: Acute (7) Myeloma kidney Status: Acute (8) Atrial fibrillation Status: Chronic (9) Chronic diastolic (congestive) heart failure Status: Chronic (10) Diabetes 1.5, managed as type 2 Status: Chronic - Assessment and Plan (Free Text) Assessment: fever persists will reculture
[2018-06-07] MEDS: Levothyroxine 75 MCG TAB PO SCH (06:09)
[2018-06-07] MEDS: Promethazine/Cod 6.25mg-10mg/5ml Syr UD PO PRN ×2 (06:09→20:18)
[2018-06-07] MEDS: Ipratropium 0.02% Inhal Soln (0.5 mg/2.5 ml) UD IH PRN ×2 (07:50→19:46)
[2018-06-07] MEDS: Tiotropium 18 mcg Cap For Inhalation INH SCH (07:50)
[2018-06-07] MEDS: Vancomycin 1 gm/NS 200 ml 1 GM/200 ML BAG IVPB SCH (08:24)
[2018-06-07] MEDS: (Novolin R) Insulin Human Regular 100 units/ml vial SC SCH ×4 (08:26→21:34)
[2018-06-07] MEDS: Insulin Detemir 100 units/ml Vial (Levemir) SC SCH (10:03)
--- NOTE | 2018-06-07 13:39 | CP.PCM.PN ---
Subjective - Date & Time of Evaluation Date of Evaluation: 06/07/18 Time of Evaluation: 13:36 - Subjective Subjective: Patient seen and examined says feels little better today no SOB still with cough Had fever yesterday cultures from 06/02- negative remains on isolation Rest 10 point ROS negative Objective - Vital Signs/Intake and Output Vital Signs (last 24 hours): Temp Pulse Resp BP Pulse Ox 98.0 F 79 18 113/68 97 06/07/18 07:17 06/07/18 07:17 06/07/18 07:17 06/07/18 10:04 06/07/18 07:17 Intake and Output: 06/07/18 06/07/18 06:59 18:59 Intake Total 540 Balance 540 - Medications Medications: Current Medications Acetaminophen (Tylenol 325mg Tab) 650 mg PO Q6 PRN PRN Reason: Fever >100.4 F Last Admin: 06/06/18 17:58 Dose: 650 mg Amiodarone HCl (Cordarone) 200 mg PO DAILY [facility] Last Admin: 06/07/18 10:05 Dose: 200 mg Apixaban (Eliquis) 2.5 mg PO BID [facility] Last Admin: 06/07/18 10:05 Dose: 2.5 mg Budesonide (Pulmicort Respules) 1 mg IH BID [facility] Calcium Acetate (Phoslo) 667 mg PO TID [facility] Last Admin: 06/07/18 13:32 Dose: Not Given Docusate Sodium (Colace) 100 mg PO TID [facility] Last Admin: 06/07/18 13:32 Dose: Not Given Epoetin Eddie (Procrit) 10,000 unit IV MWF [facility] Last Admin: 06/05/18 16:56 Dose: 10,000 unit Famotidine (Pepcid) 20 mg PO DAILY [facility] Last Admin: 06/07/18 10:04 Dose: 20 mg Ferrous Sulfate (Feosol) 325 mg PO DAILY [facility] Last Admin: 06/07/18 10:04 Dose: 325 mg Fluticasone/Vilanterol (Breo Ellipta 200-25 Mcg Inh) 1 puff INH DAILY [facility] Glipizide (Glucotrol) 10 mg PO ACBD [facility] Last Admin: 06/07/18 08:27 Dose: 10 mg Guaifenesin (Robitussin) 100 mg PO Q4H PRN PRN Reason: Cough Last Admin: 06/05/18 11:31 Dose: 100 mg Vancomycin/Sodium Chloride (Vancomycin 1 Gm/Ns 200 Ml) 1 gm in 200 mls @ 133 mls/hr IVPB MWF [facility]; Protocol Stop: 06/08/18 09:01 Last Admin: 06/07/18 08:24 Dose: 133 mls/hr Insulin Detemir (Levemir) 12 unit SC DAILY [facility] Last Admin: 06/07/18 10:03 Dose: Not Given Insulin Human Regular (Novolin R) 0 unit SC ACHS [facility]; Protocol Last Admin: 06/07/18 13:13 Dose: Not Given Ipratropium [place] (Atrovent) 0.5 mg IH RQ6 PRN PRN Reason: Shortness of Breath Last Admin: 06/07/18 07:50 Dose: 0.5 mg Levothyroxine Sodium (Synthroid) 75 mcg PO DAILY@0630 [facility] Last Admin: 06/07/18 06:09 Dose: 75 mcg Metoprolol Tartrate (Lopressor) 25 mg PO BID [facility] Last Admin: 06/07/18 10:04 Dose: 25 mg Oseltamivir Phosphate (Tamiflu Susp) 30 mg PO 2000 [facility]; Protocol Stop: 06/08/18 10:01 Last Admin: 06/06/18 19:07 Dose: 30 mg Promethazine HCl/Codeine (Phenergan/Codeine Oral Syrup) 5 ml PO Q6 PRN PRN Reason: Cough Stop: 06/07/18 13:56 Last Admin: 06/07/18 06:09 Dose: 5 ml Rosuvastatin Calcium (Crestor) 5 mg PO [facility] Last Admin: 06/06/18 21:16 Dose: 5 mg Tiotropium [place] (Spiriva) 18 mcg INH RQ24 [facility] Last Admin: 06/07/18 07:50 Dose: 18 mcg - Labs Labs: 06/03/18 10:15 06/03/18 10:15 - Constitutional Appears: Non-toxic, No Acute Distress - Head Exam Head Exam: ATRAUMATIC, NORMOCEPHALIC - Eye Exam Eye Exam: EOMI, PERRL - ENT Exam ENT Exam: Mucous Membranes Moist - Neck Exam Neck Exam: Full ROM - Respiratory Exam Respiratory Exam: Rhonchi. absent: Rales, Wheezes - Cardiovascular Exam Cardiovascular Exam: Irregular Rhythm, +S1, +S2 - GI/Abdominal Exam GI & Abdominal Exam: Soft. absent: Tenderness - Extremities Exam Extremities Exam: Full ROM. absent: Pedal Edema - Neurological Exam Neurological Exam: Alert, Awake, Oriented x3 - Psychiatric Exam Psychiatric exam: Normal Affect, Normal Mood - Skin Skin Exam: Normal Color, Warm Assessment and Plan (1) Anemia Status: Acute (2) ESRD (end stage renal disease) on dialysis Status: Acute (3) Atrial fibrillation with controlled ventricular response Status: Acute (4) CHF (congestive heart failure) Status: Acute (5) COPD (chronic obstructive pulmonary disease) Status: Acute (6) Multiple myeloma Status: Acute (7) Leucocytosis Status: Acute (8) Influenza Status: Acute - Assessment and Plan (Free Text) Plan: HD today await repeat blood culture results BP stable HR improved continue supportive care
--- NOTE | 2018-06-07 15:37 | CP.PCM.PN ---
Subjective - Date & Time of Evaluation Date of Evaluation: 06/07/18 Time of Evaluation: 15:37 Objective - Vital Signs/Intake and Output Vital Signs (last 24 hours): Temp Pulse Resp BP Pulse Ox 98.6 F 81 18 134/68 98 06/07/18 14:00 06/07/18 14:00 06/07/18 14:00 06/07/18 14:08 06/07/18 14:00 Intake and Output: 06/07/18 06/07/18 06:59 18:59 Intake Total 540 360 Balance 540 360 - Medications Medications: Current Medications Acetaminophen (Tylenol 325mg Tab) 650 mg PO Q6 PRN PRN Reason: Fever >100.4 F Last Admin: 06/06/18 17:58 Dose: 650 mg Amiodarone HCl (Cordarone) 200 mg PO DAILY [facility] Last Admin: 06/07/18 10:05 Dose: 200 mg Apixaban (Eliquis) 2.5 mg PO BID [facility] Last Admin: 06/07/18 10:05 Dose: 2.5 mg Budesonide (Pulmicort Respules) 1 mg IH BID [facility] Calcium Acetate (Phoslo) 667 mg PO TID [facility] Last Admin: 06/07/18 13:32 Dose: Not Given Docusate Sodium (Colace) 100 mg PO TID [facility] Last Admin: 06/07/18 13:32 Dose: Not Given Epoetin [place] (Procrit) 10,000 unit IV MWF [facility] Last Admin: 06/05/18 16:56 Dose: 10,000 unit Famotidine (Pepcid) 20 mg PO DAILY [facility] Last Admin: 06/07/18 10:04 Dose: 20 mg Ferrous Sulfate (Feosol) 325 mg PO DAILY [facility] Last Admin: 06/07/18 10:04 Dose: 325 mg Fluticasone/Vilanterol (Breo Ellipta 200-25 Mcg Inh) 1 puff INH DAILY [facility] Glipizide (Glucotrol) 10 mg PO ACBD [facility] Last Admin: 06/07/18 08:27 Dose: 10 mg Guaifenesin (Robitussin) 100 mg PO Q4H PRN PRN Reason: Cough Last Admin: 06/05/18 11:31 Dose: 100 mg Vancomycin/Sodium Chloride (Vancomycin 1 Gm/Ns 200 Ml) 1 gm in 200 mls @ 133 mls/hr IVPB MWF [facility]; Protocol Stop: 06/08/18 09:01 Last Admin: 06/07/18 08:24 Dose: 133 mls/hr Insulin Detemir (Levemir) 12 unit SC DAILY [facility] Last Admin: 06/07/18 10:03 Dose: Not Given Insulin Human Regular (Novolin R) 0 unit SC ACHS [facility]; Protocol Last Admin: 06/07/18 13:13 Dose: Not Given Ipratropium [place] (Atrovent) 0.5 mg IH RQ6 PRN PRN Reason: Shortness of Breath Last Admin: 06/07/18 07:50 Dose: 0.5 mg Levothyroxine Sodium (Synthroid) 75 mcg PO DAILY@0630 [facility] Last Admin: 06/07/18 06:09 Dose: 75 mcg Metoprolol Tartrate (Lopressor) 25 mg PO BID [facility] Last Admin: 06/07/18 10:04 Dose: 25 mg Oseltamivir Phosphate (Tamiflu Susp) 30 mg PO 2000 [facility]; Protocol Stop: 06/08/18 10:01 Last Admin: 06/06/18 19:07 Dose: 30 mg Rosuvastatin Calcium (Crestor) 5 mg PO HS [facility] Last Admin: 06/06/18 21:16 Dose: 5 mg Tiotropium [place] (Spiriva) 18 mcg INH RQ24 [facility] Last Admin: 06/07/18 07:50 Dose: 18 mcg - Labs Labs: 06/03/18 10:15 06/03/18 10:15 Assessment and Plan (1) Anemia Status: Acute (2) ESRD (end stage renal disease) on dialysis Status: Acute (3) COPD (chronic obstructive pulmonary disease) Status: Acute
[2018-06-07] MEDS: Epoetin Alfa 10,000 unit/ml Dialysis IV SCH (15:57)
--- NOTE | 2018-06-07 19:51 | CP.PCM.PN ---
Subjective - Date & Time of Evaluation Date of Evaluation: 06/07/18 Time of Evaluation: 08:45 - Subjective Subjective: clinically same Objective - Vital Signs/Intake and Output Vital Signs (last 24 hours): Temp Pulse Resp BP Pulse Ox 98.3 F 99 H 20 117/69 95 06/07/18 18:00 06/07/18 18:00 06/07/18 18:00 06/07/18 18:02 06/07/18 18:00 Intake and Output: 06/07/18 06/08/18 18:59 06:59 Intake Total 360 Balance 360 - Medications Medications: Current Medications Acetaminophen (Tylenol 325mg Tab) 650 mg PO Q6 PRN PRN Reason: Fever >100.4 F Last Admin: 06/06/18 17:58 Dose: 650 mg Amiodarone HCl (Cordarone) 200 mg PO DAILY [facility] Last Admin: 06/07/18 10:05 Dose: 200 mg Apixaban (Eliquis) 2.5 mg PO BID [facility] Last Admin: 06/07/18 18:02 Dose: 2.5 mg Budesonide (Pulmicort Respules) 1 mg IH BID [facility] Calcium Acetate (Phoslo) 667 mg PO TID [facility] Last Admin: 06/07/18 18:02 Dose: 667 mg Docusate Sodium (Colace) 100 mg PO TID [facility] Last Admin: 06/07/18 18:02 Dose: Not Given Epoetin [place] (Procrit) 10,000 unit IV MWF [facility] Last Admin: 06/07/18 15:57 Dose: 10,000 unit Famotidine (Pepcid) 20 mg PO DAILY [facility] Last Admin: 06/07/18 10:04 Dose: 20 mg Ferrous Sulfate (Feosol) 325 mg PO DAILY [facility] Last Admin: 06/07/18 10:04 Dose: 325 mg Fluticasone/Vilanterol (Breo Ellipta 200-25 Mcg Inh) 1 puff INH DAILY [facility] Glipizide (Glucotrol) 10 mg PO ACBD [facility] Last Admin: 06/07/18 17:41 Dose: Not Given Guaifenesin (Robitussin) 100 mg PO Q4H PRN PRN Reason: Cough Last Admin: 06/05/18 11:31 Dose: 100 mg Vancomycin/Sodium Chloride (Vancomycin 1 Gm/Ns 200 Ml) 1 gm in 200 mls @ 133 mls/hr IVPB MWF [facility]; Protocol Stop: 06/08/18 09:01 Last Admin: 06/07/18 08:24 Dose: 133 mls/hr Insulin Detemir (Levemir) 12 unit SC DAILY [facility] Last Admin: 06/07/18 10:03 Dose: Not Given Insulin Human Regular (Novolin R) 0 unit SC ACHS [facility]; Protocol Last Admin: 06/07/18 17:40 Dose: Not Given Ipratropium [place] (Atrovent) 0.5 mg IH RQ6 PRN PRN Reason: Shortness of Breath Last Admin: 06/07/18 19:46 Dose: 0.5 mg Levothyroxine Sodium (Synthroid) 75 mcg PO DAILY@0630 [facility] Last Admin: 06/07/18 06:09 Dose: 75 mcg Metoprolol Tartrate (Lopressor) 25 mg PO BID [facility] Last Admin: 06/07/18 18:02 Dose: 25 mg Oseltamivir Phosphate (Tamiflu Susp) 30 mg PO 2000 [facility]; Protocol Stop: 06/08/18 10:01 Last Admin: 06/06/18 19:07 Dose: 30 mg Rosuvastatin Calcium (Crestor) 5 mg PO HS [facility] Last Admin: 06/06/18 21:16 Dose: 5 mg Tiotropium [place] (Spiriva) 18 mcg INH RQ24 [facility] Last Admin: 06/07/18 07:50 Dose: 18 mcg - Labs Labs: 06/03/18 10:15 06/03/18 10:15
[2018-06-07] MEDS: Oseltamivir 6 MG/ML PO SCH (20:18)
[2018-06-08] MEDS: Levothyroxine 75 MCG TAB PO SCH (05:46)
[2018-06-08] MEDS: Ipratropium 0.02% Inhal Soln (0.5 mg/2.5 ml) UD IH PRN ×2 (07:35→21:06)
[2018-06-08] MEDS: Tiotropium 18 mcg Cap For Inhalation INH SCH (07:35)
[2018-06-08] MEDS: (Novolin R) Insulin Human Regular 100 units/ml vial SC SCH ×4 (08:05→21:17)
--- NOTE | 2018-06-08 09:14 | CP.PCM.PN ---
Subjective - Date & Time of Evaluation Date of Evaluation: 06/08/18 Time of Evaluation: 09:12 - Subjective Subjective: pt seen and examined had HD yesterday feel s little better still with some cough off isolation no chest pain or palpitations ROS- 10 point ROS negative Objective - Vital Signs/Intake and Output Vital Signs (last 24 hours): Temp Pulse Resp BP Pulse Ox 98.1 F 85 18 119/63 96 06/08/18 07:00 06/08/18 07:00 06/08/18 07:00 06/08/18 07:00 06/08/18 07:00 Intake and Output: 06/08/18 06/08/18 06:59 18:59 Intake Total 200 Balance 200 - Medications Medications: Current Medications Acetaminophen (Tylenol 325mg Tab) 650 mg PO Q6 PRN PRN Reason: Fever >100.4 F Last Admin: 06/06/18 17:58 Dose: 650 mg Amiodarone HCl (Cordarone) 200 mg PO DAILY [facility] Last Admin: 06/07/18 10:05 Dose: 200 mg Apixaban (Eliquis) 2.5 mg PO BID [facility] Last Admin: 06/07/18 18:02 Dose: 2.5 mg Budesonide (Pulmicort Respules) 1 mg IH BID [facility] Calcium Acetate (Phoslo) 667 mg PO TID [facility] Last Admin: 06/07/18 18:02 Dose: 667 mg Docusate Sodium (Colace) 100 mg PO TID [facility] Last Admin: 06/07/18 18:02 Dose: Not Given Epoetin [place] (Procrit) 10,000 unit IV MWF [facility] Last Admin: 06/07/18 15:57 Dose: 10,000 unit Famotidine (Pepcid) 20 mg PO DAILY [facility] Last Admin: 06/07/18 10:04 Dose: 20 mg Ferrous Sulfate (Feosol) 325 mg PO DAILY [facility] Last Admin: 06/07/18 10:04 Dose: 325 mg Fluticasone/Vilanterol (Breo Ellipta 200-25 Mcg Inh) 1 puff INH DAILY [facility] Glipizide (Glucotrol) 10 mg PO ACBD [facility] Last Admin: 06/08/18 08:06 Dose: 10 mg Guaifenesin (Robitussin) 100 mg PO Q4H PRN PRN Reason: Cough Last Admin: 06/05/18 11:31 Dose: 100 mg Insulin Detemir (Levemir) 12 unit SC DAILY [facility] Last Admin: 06/07/18 10:03 Dose: Not Given Insulin Human Regular (Novolin R) 0 unit SC ACHS [facility]; Protocol Last Admin: 06/08/18 08:05 Dose: Not Given Ipratropium [place] (Atrovent) 0.5 mg IH RQ6 PRN PRN Reason: Shortness of Breath Last Admin: 06/07/18 19:46 Dose: 0.5 mg Levothyroxine Sodium (Synthroid) 75 mcg PO DAILY@0630 [facility] Last Admin: 06/08/18 05:46 Dose: 75 mcg Metoprolol Tartrate (Lopressor) 25 mg PO BID [facility] Last Admin: 06/07/18 18:02 Dose: 25 mg Oseltamivir Phosphate (Tamiflu Susp) 30 mg PO 1999 [facility]; Protocol Stop: 06/08/18 10:01 Last Admin: 06/07/18 20:18 Dose: 30 mg Promethazine HCl/Codeine (Phenergan/Codeine Oral Syrup) 5 ml PO Q6 PRN PRN Reason: Cough and congestion Last Admin: 06/07/18 20:18 Dose: 5 ml Rosuvastatin Calcium (Crestor) 5 mg PO HS [facility] Last Admin: 06/07/18 21:34 Dose: 5 mg Tiotropium [place] (Spiriva) 18 mcg INH RQ24 [facility] Last Admin: 06/07/18 07:50 Dose: 18 mcg - Labs Labs: 06/03/18 10:15 06/03/18 10:15 - Constitutional Appears: Well, Non-toxic - Head Exam Head Exam: ATRAUMATIC, NORMOCEPHALIC - Eye Exam Eye Exam: EOMI, PERRL - ENT Exam ENT Exam: Mucous Membranes Moist - Neck Exam Neck Exam: Full ROM - Respiratory Exam Respiratory Exam: Clear to Ausculation Bilateral. absent: Rhonchi, Wheezes - Cardiovascular Exam Cardiovascular Exam: REGULAR RHYTHM, +S1, +S2 - GI/Abdominal Exam GI & Abdominal Exam: Soft. absent: Distended, Tenderness - Extremities Exam Extremities Exam: Full ROM. absent: Pedal Edema - Neurological Exam Neurological Exam: Alert, Awake, Oriented x3 - Psychiatric Exam Psychiatric exam: Normal Affect, Normal Mood - Skin Skin Exam: Normal Color, Warm Assessment and Plan (1) Anemia Status: Acute (2) ESRD (end stage renal disease) on dialysis Status: Acute (3) Atrial fibrillation with controlled ventricular response Status: Acute (4) CHF (congestive heart failure) Status: Acute (5) COPD (chronic obstructive pulmonary disease) Status: Acute (6) Multiple myeloma Status: Acute (7) Leucocytosis Status: Acute (8) Influenza Status: Acute - Assessment and Plan (Free Text) Plan: clinically improved SOB much better Bp stable maintain HD MWF A fib rate controlled discharge planning
[2018-06-08 09:48] LABS: SQUAMOUS EPITHIAL 10 /hpf (0-5); URINE BACTERIA OCC (<OCC); URINE BILIRUBIN NEGATIVE (NEGATIVE); URINE BLOOD 1+ (NEGATIVE); URINE CALCIUM OXALATE CRYSTALS RARE /hpf (<OCC); URINE CLARITY Hazy (Clear); URINE GLUCOSE (UA) NORMAL (Normal); URINE LEUKOCYTE ESTERASE 2+ Leu/uL (Negative); URINE PROTEIN 2+ mg/dL (NEGATIVE); URINE UROBILINOGEN NORMAL mg/dL (0.2-1.0)
[2018-06-08 09:59] LABS: URINE COLOR YELLOW (YELLOW)
[2018-06-08] MEDS: Insulin Detemir 100 units/ml Vial (Levemir) SC SCH (10:31)
[2018-06-08] MEDS: Promethazine/Cod 6.25mg-10mg/5ml Syr UD PO PRN ×3 (10:35→23:07)
[2018-06-08 11:28] LABS: BASO # 0.1 K/uL (0.0-0.2); BASO % 0.4 % (0.0-2.0); EOS % 0.1 % (0.0-4.0); HEMOGLOBIN 8.6 g/dL (11.0-16.0); LYMPH # 2.2 K/uL (1.0-4.3); LYMPH % 13.5 % (20.0-40.0); MEAN CELL VOLUME 90.2 fL (81.0-99.0); MEAN CORPUSCULAR HEMOGLOBIN 28.4 pg (27.0-31.0); MEAN CORPUSCULAR HGB CONC 31.5 g/dL (33.0-37.0); MEAN PLATELET VOLUME 9.6 fL (7.2-11.7); MONO # 1.1 K/uL (0.0-0.8); MONO % 6.4 % (0.0-10.0); NEUT # 13.3 K/uL (1.8-7.0); NEUT % 79.6 % (50.0-75.0); NRBC % 0.1 % (0.0-2.0); RBC 3.03 Mil/uL (3.80-5.20); RED CELL DISTRIBUTION WIDTH 15.9 % (11.5-14.5)
[2018-06-08 11:31] LABS: WHITE BLOOD COUNT 16.7 K/uL (4.8-10.8)
[2018-06-08] MEDS: Fluconazole IV 100mg/50 ml NS 50 ML IVPB SCH (13:59)
--- NOTE | 2018-06-08 14:18 | CP.PCM.PN ---
Subjective - Date & Time of Evaluation Date of Evaluation: 06/08/18 Time of Evaluation: 08:45 - Subjective Subjective: clinically same Objective - Vital Signs/Intake and Output Vital Signs (last 24 hours): Temp Pulse Resp BP Pulse Ox 98.1 F 85 18 111/57 L 96 06/08/18 07:00 06/08/18 07:00 06/08/18 07:00 06/08/18 10:30 06/08/18 07:00 Intake and Output: 06/08/18 06/08/18 06:59 18:59 Intake Total 200 Balance 200 - Medications Medications: Current Medications Acetaminophen (Tylenol 325mg Tab) 650 mg PO Q6 PRN PRN Reason: Fever >100.4 F Last Admin: 06/06/18 17:58 Dose: 650 mg Amiodarone HCl (Cordarone) 200 mg PO DAILY [facility] Last Admin: 06/08/18 10:31 Dose: 200 mg Apixaban (Eliquis) 2.5 mg PO BID [facility] Last Admin: 06/08/18 10:31 Dose: 2.5 mg Budesonide (Pulmicort Respules) 1 mg IH BID [facility] Calcium Acetate (Phoslo) 667 mg PO TID [facility] Last Admin: 06/08/18 13:59 Dose: 667 mg Docusate Sodium (Colace) 100 mg PO TID [facility] Last Admin: 06/08/18 13:59 Dose: 100 mg Epoetin [place] (Procrit) 10,000 unit IV MWF [facility] Last Admin: 06/07/18 15:57 Dose: 10,000 unit Famotidine (Pepcid) 20 mg PO DAILY [facility] Last Admin: 06/08/18 10:30 Dose: 20 mg Ferrous Sulfate (Feosol) 325 mg PO DAILY [facility] Last Admin: 06/08/18 10:30 Dose: 325 mg Fluticasone/Vilanterol (Breo Ellipta 200-25 Mcg Inh) 1 puff INH DAILY [facility] Glipizide (Glucotrol) 10 mg PO ACBD [facility] Last Admin: 06/08/18 08:06 Dose: 10 mg Guaifenesin (Robitussin) 100 mg PO Q4H PRN PRN Reason: Cough Last Admin: 06/05/18 11:31 Dose: 100 mg Fluconazole (Diflucan Iv 100 Mg/50 Ml Ns) 50 mls @ 100 mls/hr IVPB DAILY [facility]; Protocol Last Admin: 06/08/18 13:59 Dose: 100 mls/hr Insulin Detemir (Levemir) 12 unit SC DAILY [facility] Last Admin: 06/08/18 10:31 Dose: Not Given Insulin Human Regular (Novolin R) 0 unit SC ACHS [facility]; Protocol Last Admin: 06/08/18 12:56 Dose: 4 units Ipratropium [place] (Atrovent) 0.5 mg IH RQ6 PRN PRN Reason: Shortness of Breath Last Admin: 06/08/18 07:35 Dose: 0.5 mg Levothyroxine Sodium (Synthroid) 75 mcg PO DAILY@0630 [facility] Last Admin: 06/08/18 05:46 Dose: 75 mcg Metoprolol Tartrate (Lopressor) 25 mg PO BID [facility] Last Admin: 06/08/18 10:30 Dose: 25 mg Promethazine HCl/Codeine (Phenergan/Codeine Oral Syrup) 5 ml PO Q6 PRN PRN Reason: Cough and congestion Last Admin: 06/08/18 10:35 Dose: 5 ml Rosuvastatin Calcium (Crestor) 5 mg PO HS [facility] Last Admin: 06/07/18 21:34 Dose: 5 mg Tiotropium [place] (Spiriva) 18 mcg INH RQ24 [facility] Last Admin: 06/08/18 07:35 Dose: 18 mcg - Labs Labs: 06/08/18 11:20 06/03/18 10:15 - Constitutional Appears: Well - Head Exam Head Exam: ATRAUMATIC, NORMAL INSPECTION, NORMOCEPHALIC - Eye Exam Eye Exam: EOMI, Normal appearance, PERRL Pupil Exam: NORMAL ACCOMODATION, PERRL - ENT Exam ENT Exam: Mucous Membranes Moist, Normal Exam - Neck Exam Neck Exam: Full ROM, Normal Inspection. absent: Lymphadenopathy - Respiratory Exam Respiratory Exam: Decreased Breath Sounds - Cardiovascular Exam Cardiovascular Exam: REGULAR RHYTHM, +S1, +S2 - GI/Abdominal Exam GI & Abdominal Exam: Soft, Diminished Bowel Sounds - Rectal Exam Rectal Exam: Deferred
--- NOTE | 2018-06-08 16:41 | CP.PCM.PN ---
Subjective - Date & Time of Evaluation Date of Evaluation: 06/08/18 Time of Evaluation: 16:40 Objective - Vital Signs/Intake and Output Vital Signs (last 24 hours): Temp Pulse Resp BP Pulse Ox 99.8 F H 80 18 128/49 L 97 06/08/18 15:00 06/08/18 15:00 06/08/18 15:00 06/08/18 15:00 06/08/18 15:00 Intake and Output: 06/08/18 06/08/18 06:59 18:59 Intake Total 200 410 Balance 200 410 - Medications Medications: Current Medications Acetaminophen (Tylenol 325mg Tab) 650 mg PO Q6 PRN PRN Reason: Fever >100.4 F Last Admin: 06/06/18 17:58 Dose: 650 mg Amiodarone HCl (Cordarone) 200 mg PO DAILY [facility] Last Admin: 06/08/18 10:31 Dose: 200 mg Apixaban (Eliquis) 2.5 mg PO BID [facility] Last Admin: 06/08/18 10:31 Dose: 2.5 mg Budesonide (Pulmicort Respules) 1 mg IH BID [facility] Calcium Acetate (Phoslo) 667 mg PO TID [facility] Last Admin: 06/08/18 13:59 Dose: 667 mg Docusate Sodium (Colace) 100 mg PO TID [facility] Last Admin: 06/08/18 13:59 Dose: 100 mg Epoetin [place] (Procrit) 10,000 unit IV MWF [facility] Last Admin: 06/07/18 15:57 Dose: 10,000 unit Famotidine (Pepcid) 20 mg PO DAILY [facility] Last Admin: 06/08/18 10:30 Dose: 20 mg Ferrous Sulfate (Feosol) 325 mg PO DAILY [facility] Last Admin: 06/08/18 10:30 Dose: 325 mg Fluticasone/Vilanterol (Breo Ellipta 200-25 Mcg Inh) 1 puff INH DAILY [facility] Glipizide (Glucotrol) 10 mg PO ACBD [facility] Last Admin: 06/08/18 08:06 Dose: 10 mg Guaifenesin (Robitussin) 100 mg PO Q4H PRN PRN Reason: Cough Last Admin: 06/05/18 11:31 Dose: 100 mg Fluconazole (Diflucan Iv 100 Mg/50 Ml Ns) 50 mls @ 100 mls/hr IVPB DAILY [facility]; Protocol Last Admin: 06/08/18 13:59 Dose: 100 mls/hr Insulin Detemir (Levemir) 12 unit SC DAILY [facility] Last Admin: 06/08/18 10:31 Dose: Not Given Insulin Human Regular (Novolin R) 0 unit SC ACHS [facility]; Protocol Last Admin: 06/08/18 12:56 Dose: 4 units Ipratropium [place] (Atrovent) 0.5 mg IH RQ6 PRN PRN Reason: Shortness of Breath Last Admin: 06/08/18 07:35 Dose: 0.5 mg Levothyroxine Sodium (Synthroid) 75 mcg PO DAILY@0630 [facility] Last Admin: 06/08/18 05:46 Dose: 75 mcg Metoprolol Tartrate (Lopressor) 25 mg PO BID [facility] Last Admin: 06/08/18 10:30 Dose: 25 mg Promethazine HCl/Codeine (Phenergan/Codeine Oral Syrup) 5 ml PO Q6 PRN PRN Reason: Cough and congestion Last Admin: 06/08/18 10:35 Dose: 5 ml Rosuvastatin Calcium (Crestor) 5 mg PO HS [facility] Last Admin: 06/07/18 21:34 Dose: 5 mg Tiotropium [place] (Spiriva) 18 mcg INH RQ24 [facility] Last Admin: 06/08/18 07:35 Dose: 18 mcg - Labs Labs: 06/08/18 11:20 06/03/18 10:15 Assessment and Plan (1) Anemia Status: Acute (2) ESRD (end stage renal disease) on dialysis Status: Acute (3) COPD (chronic obstructive pulmonary disease) Status: Acute
[2018-06-08] MEDS: guaiFENesin 100 mg/5 ml Syrup UD PO PRN ×2 (17:36→18:40)
[2018-06-09] MEDS: Ipratropium 0.02% Inhal Soln (0.5 mg/2.5 ml) UD IH PRN (07:35)
[2018-06-09] MEDS: Tiotropium 18 mcg Cap For Inhalation INH SCH (07:35)
[2018-06-09] MEDS: (Novolin R) Insulin Human Regular 100 units/ml vial SC SCH ×4 (08:03→21:40)
[2018-06-09] MEDS: Promethazine/Cod 6.25mg-10mg/5ml Syr UD PO PRN ×3 (08:25→21:45)
[2018-06-09] MEDS: Fluconazole IV 100mg/50 ml NS 50 ML IVPB SCH (10:16)
[2018-06-09] MEDS: Insulin Detemir 100 units/ml Vial (Levemir) SC SCH (10:17)
--- NOTE | 2018-06-09 11:37 | CARD ---
APPROVED REPORT Date of service: 06/01/2018 EKG Measurement Heart [id number] <Conclusion> Normal sinus rhythm Possible Left atrial enlargement Borderline ECG
--- NOTE | 2018-06-09 15:22 | CP.PCM.PN ---
Subjective - Date & Time of Evaluation Date of Evaluation: 06/09/18 Time of Evaluation: 08:45 - Subjective Subjective: clinically same Objective - Vital Signs/Intake and Output Vital Signs (last 24 hours): Temp Pulse Resp BP Pulse Ox 98.0 F 82 20 116/64 96 06/09/18 07:00 06/09/18 10:15 06/09/18 10:15 06/09/18 10:16 06/09/18 07:00 - Medications Medications: Current Medications Acetaminophen (Tylenol 325mg Tab) 650 mg PO Q6 PRN PRN Reason: Fever >100.4 F Last Admin: 06/06/18 17:58 Dose: 650 mg Amiodarone HCl (Cordarone) 200 mg PO DAILY [facility] Last Admin: 06/09/18 10:16 Dose: 200 mg Apixaban (Eliquis) 2.5 mg PO BID [facility] Last Admin: 06/09/18 10:15 Dose: 2.5 mg Budesonide (Pulmicort Respules) 1 mg IH BID [facility] Calcium Acetate (Phoslo) 667 mg PO TID [facility] Last Admin: 06/09/18 13:45 Dose: 667 mg Docusate Sodium (Colace) 100 mg PO TID [facility] Last Admin: 06/09/18 13:45 Dose: 100 mg Epoetin [place] (Procrit) 10,000 unit IV MWF [facility] Last Admin: 06/07/18 15:57 Dose: 10,000 unit Famotidine (Pepcid) 20 mg PO DAILY [facility] Last Admin: 06/09/18 10:16 Dose: 20 mg Ferrous Sulfate (Feosol) 325 mg PO DAILY [facility] Last Admin: 06/09/18 10:16 Dose: 325 mg Fluticasone/Vilanterol (Breo Ellipta 200-25 Mcg Inh) 1 puff INH DAILY [facility] Glipizide (Glucotrol) 10 mg PO ACBD [facility] Last Admin: 06/09/18 08:23 Dose: 10 mg Guaifenesin (Robitussin) 100 mg PO Q4H PRN PRN Reason: Cough Last Admin: 06/08/18 18:40 Dose: 100 mg Fluconazole (Diflucan Iv 100 Mg/50 Ml Ns) 50 mls @ 100 mls/hr IVPB DAILY [facility]; Protocol Last Admin: 06/09/18 10:16 Dose: 100 mls/hr Insulin Detemir (Levemir) 12 unit SC DAILY [facility] Last Admin: 06/09/18 10:17 Dose: Not Given Insulin Human Regular (Novolin R) 0 unit SC ACHS [facility]; Protocol Last Admin: 06/09/18 11:37 Dose: 4 units Ipratropium [place] (Atrovent) 0.5 mg IH RQ6 PRN PRN Reason: Shortness of Breath Last Admin: 06/09/18 07:35 Dose: 0.5 mg Levothyroxine Sodium (Synthroid) 75 mcg PO DAILY@0630 [facility] Last Admin: 06/08/18 05:46 Dose: 75 mcg Metoprolol Tartrate (Lopressor) 25 mg PO BID [facility] Last Admin: 06/09/18 10:16 Dose: 25 mg Promethazine HCl/Codeine (Phenergan/Codeine Oral Syrup) 5 ml PO Q6 PRN PRN Reason: Cough and congestion Last Admin: 06/09/18 08:25 Dose: 5 ml Rosuvastatin Calcium (Crestor) 5 mg PO HS [facility] Last Admin: 06/08/18 21:43 Dose: 5 mg Tiotropium [place] (Spiriva) 18 mcg INH RQ24 [facility] Last Admin: 06/09/18 07:35 Dose: 18 mcg - Labs Labs: 06/08/18 11:20 06/03/18 10:15
--- NOTE | 2018-06-09 17:29 | CP.PCM.PN ---
Subjective - Date & Time of Evaluation Date of Evaluation: 06/09/18 Time of Evaluation: 07:00 - Subjective Subjective: c/o dysuria urine c/s + add zyvox Objective - Vital Signs/Intake and Output Vital Signs (last 24 hours): Temp Pulse Resp BP Pulse Ox 99.6 F 77 18 139/59 L 97 06/09/18 15:00 06/09/18 15:00 06/09/18 15:00 06/09/18 15:00 06/09/18 15:00 Intake and Output: 06/09/18 06/09/18 06:59 18:59 Intake Total 410 Balance 410 - Medications Medications: Current Medications Acetaminophen (Tylenol 325mg Tab) 650 mg PO Q6 PRN PRN Reason: Fever >100.4 F Last Admin: 06/06/18 17:58 Dose: 650 mg Amiodarone HCl (Cordarone) 200 mg PO DAILY [facility] Last Admin: 06/09/18 10:16 Dose: 200 mg Apixaban (Eliquis) 2.5 mg PO BID [facility] Last Admin: 06/09/18 10:15 Dose: 2.5 mg Budesonide (Pulmicort Respules) 1 mg IH BID [facility] Calcium Acetate (Phoslo) 667 mg PO TID [facility] Last Admin: 06/09/18 13:45 Dose: 667 mg Docusate Sodium (Colace) 100 mg PO TID [facility] Last Admin: 06/09/18 13:45 Dose: 100 mg Epoetin [place] (Procrit) 10,000 unit IV MWF [facility] Last Admin: 06/07/18 15:57 Dose: 10,000 unit Famotidine (Pepcid) 20 mg PO DAILY [facility] Last Admin: 06/09/18 10:16 Dose: 20 mg Ferrous Sulfate (Feosol) 325 mg PO DAILY [facility] Last Admin: 06/09/18 10:16 Dose: 325 mg Fluticasone/Vilanterol (Breo Ellipta 200-25 Mcg Inh) 1 puff INH DAILY [facility] Glipizide (Glucotrol) 10 mg PO ACBD [facility] Last Admin: 06/09/18 08:23 Dose: 10 mg Guaifenesin (Robitussin) 100 mg PO Q4H PRN PRN Reason: Cough Last Admin: 06/08/18 18:40 Dose: 100 mg Fluconazole (Diflucan Iv 100 Mg/50 Ml Ns) 50 mls @ 100 mls/hr IVPB DAILY [facility]; Protocol Last Admin: 06/09/18 10:16 Dose: 100 mls/hr Linezolid (Zyvox 600mg/300ml D5w) 600 mg in 300 mls @ 200 mls/hr IVPB Q12H [facility]; Protocol Insulin Detemir (Levemir) 12 unit SC DAILY [facility] Last Admin: 06/09/18 10:17 Dose: Not Given Insulin Human Regular (Novolin R) 0 unit SC ACHS [facility]; Protocol Last Admin: 06/09/18 16:13 Dose: Not Given Ipratropium [place] (Atrovent) 0.5 mg IH RQ6 PRN PRN Reason: Shortness of Breath Last Admin: 06/09/18 07:35 Dose: 0.5 mg Levothyroxine Sodium (Synthroid) 75 mcg PO DAILY@0630 [facility] Last Admin: 06/08/18 05:46 Dose: 75 mcg Metoprolol Tartrate (Lopressor) 25 mg PO BID [facility] Last Admin: 06/09/18 10:16 Dose: 25 mg Promethazine HCl/Codeine (Phenergan/Codeine Oral Syrup) 5 ml PO Q6 PRN PRN Reason: Cough and congestion Last Admin: 06/09/18 15:42 Dose: 5 ml Rosuvastatin Calcium (Crestor) 5 mg PO HS [facility] Last Admin: 06/08/18 21:43 Dose: 5 mg Tiotropium [place] (Spiriva) 18 mcg INH RQ24 [facility] Last Admin: 06/09/18 07:35 Dose: 18 mcg - Labs Labs: 06/08/18 11:20 06/03/18 10:15 - Constitutional Appears: Non-toxic, Chronically Ill - Head Exam Head Exam: NORMOCEPHALIC - Eye Exam Eye Exam: absent: Scleral icterus - ENT Exam ENT Exam: Mucous Membranes Dry - Neck Exam Neck Exam: absent: Lymphadenopathy - Respiratory Exam Respiratory Exam: Decreased Breath Sounds - Cardiovascular Exam Cardiovascular Exam: REGULAR RHYTHM - GI/Abdominal Exam GI & Abdominal Exam: Distended, Soft - Rectal Exam Rectal Exam: Deferred - Exam Exam: NORMAL INSPECTION Assessment and Plan (1) Anemia Status: Acute (2) ESRD (end stage renal disease) on dialysis Status: Acute (3) Acute bronchitis Status: Acute (4) Bronchitis Status: Acute (5) COPD (chronic obstructive pulmonary disease) Status: Acute (6) Leucocytosis Status: Acute (7) Myeloma kidney Status: Acute (8) Atrial fibrillation Status: Chronic (9) Chronic diastolic (congestive) heart failure Status: Chronic (10) Diabetes 1.5, managed as type 2 Status: Chronic - Assessment and Plan (Free Text) Assessment: c/o dysuria urine c/s + add zyvox
[2018-06-09] MEDS: Linezolid 600 mg in D5W 300 ml 600 MG/300 ML BAG IVPB SCH (18:12)
--- NOTE | 2018-06-09 19:55 | CP.PCM.PN ---
Subjective - Date & Time of Evaluation Date of Evaluation: 06/09/18 Time of Evaluation: 19:55 Objective - Vital Signs/Intake and Output Vital Signs (last 24 hours): Temp Pulse Resp BP Pulse Ox 99.6 F 77 18 134/61 97 06/09/18 15:00 06/09/18 15:00 06/09/18 15:00 06/09/18 18:11 06/09/18 15:00 Intake and Output: 06/09/18 06/10/18 18:59 06:59 Intake Total 410 Balance 410 - Medications Medications: Current Medications Acetaminophen (Tylenol 325mg Tab) 650 mg PO Q6 PRN PRN Reason: Fever >100.4 F Last Admin: 06/06/18 17:58 Dose: 650 mg Amiodarone HCl (Cordarone) 200 mg PO DAILY [facility] Last Admin: 06/09/18 10:16 Dose: 200 mg Apixaban (Eliquis) 2.5 mg PO BID [facility] Last Admin: 06/09/18 18:11 Dose: 2.5 mg Budesonide (Pulmicort Respules) 1 mg IH BID [facility] Calcium Acetate (Phoslo) 667 mg PO TID [facility] Last Admin: 06/09/18 18:11 Dose: 667 mg Docusate Sodium (Colace) 100 mg PO TID [facility] Last Admin: 06/09/18 18:11 Dose: 100 mg Epoetin [place] (Procrit) 10,000 unit IV MWF [facility] Last Admin: 06/07/18 15:57 Dose: 10,000 unit Famotidine (Pepcid) 20 mg PO DAILY [facility] Last Admin: 06/09/18 10:16 Dose: 20 mg Ferrous Sulfate (Feosol) 325 mg PO DAILY [facility] Last Admin: 06/09/18 10:16 Dose: 325 mg Fluticasone/Vilanterol (Breo Ellipta 200-25 Mcg Inh) 1 puff INH DAILY [facility] Glipizide (Glucotrol) 10 mg PO ACBD [facility] Last Admin: 06/09/18 17:32 Dose: Not Given Guaifenesin (Robitussin) 100 mg PO Q4H PRN PRN Reason: Cough Last Admin: 06/08/18 18:40 Dose: 100 mg Fluconazole (Diflucan Iv 100 Mg/50 Ml Ns) 50 mls @ 100 mls/hr IVPB DAILY [facility]; Protocol Last Admin: 06/09/18 10:16 Dose: 100 mls/hr Linezolid (Zyvox 600mg/300ml D5w) 600 mg in 300 mls @ 200 mls/hr IVPB Q12H [facility]; Protocol Last Admin: 06/09/18 18:12 Dose: 200 mls/hr Insulin Detemir (Levemir) 12 unit SC DAILY [facility] Last Admin: 06/09/18 10:17 Dose: Not Given Insulin Human Regular (Novolin R) 0 unit SC ACHS [facility]; Protocol Last Admin: 06/09/18 16:13 Dose: Not Given Ipratropium [place] (Atrovent) 0.5 mg IH RQ6 PRN PRN Reason: Shortness of Breath Last Admin: 06/09/18 07:35 Dose: 0.5 mg Levothyroxine Sodium (Synthroid) 75 mcg PO DAILY@0630 [facility] Last Admin: 06/08/18 05:46 Dose: 75 mcg Metoprolol Tartrate (Lopressor) 25 mg PO BID [facility] Last Admin: 06/09/18 18:11 Dose: 25 mg Promethazine HCl/Codeine (Phenergan/Codeine Oral Syrup) 5 ml PO Q6 PRN PRN Reason: Cough and congestion Last Admin: 06/09/18 15:42 Dose: 5 ml Rosuvastatin Calcium (Crestor) 5 mg PO HS [facility] Last Admin: 06/08/18 21:43 Dose: 5 mg Tiotropium [place] (Spiriva) 18 mcg INH RQ24 [facility] Last Admin: 06/09/18 07:35 Dose: 18 mcg - Labs Labs: 06/08/18 11:20 06/03/18 10:15 Assessment and Plan (1) Anemia Status: Acute (2) ESRD (end stage renal disease) on dialysis Status: Acute (3) COPD (chronic obstructive pulmonary disease) Status: Acute
[2018-06-10] MEDS: guaiFENesin 100 mg/5 ml Syrup UD PO PRN (02:41)
[2018-06-10] MEDS: Linezolid 600 mg in D5W 300 ml 600 MG/300 ML BAG IVPB SCH ×2 (04:41→18:39)
[2018-06-10] MEDS: Levothyroxine 75 MCG TAB PO SCH (05:33)
[2018-06-10] MEDS: Promethazine/Cod 6.25mg-10mg/5ml Syr UD PO PRN ×2 (07:02→14:25)
[2018-06-10] MEDS: Tiotropium 18 mcg Cap For Inhalation INH SCH (07:54)
[2018-06-10] MEDS: (Novolin R) Insulin Human Regular 100 units/ml vial SC SCH ×3 (07:55→21:23)
[2018-06-10] MEDS: Epoetin Alfa 10,000 unit/ml Dialysis IV SCH (10:53)
--- NOTE | 2018-06-10 12:04 | CP.PCM.PN ---
Subjective - Date & Time of Evaluation Date of Evaluation: 06/10/18 Time of Evaluation: 12:02 - Subjective Subjective: seen on HD no further dysuria poor appetite has vomiting no fevers no rash no headache no abominal pain no anxiety decreased urine production no pain no arthralgias Objective - Vital Signs/Intake and Output Vital Signs (last 24 hours): Temp Pulse Resp BP Pulse Ox 100.6 F H 84 20 137/56 L 99 06/10/18 09:40 06/10/18 09:40 06/10/18 09:40 06/10/18 11:40 06/10/18 09:40 - Medications Medications: Current Medications Acetaminophen (Tylenol 325mg Tab) 650 mg PO Q6 PRN PRN Reason: Fever >100.4 F Last Admin: 06/06/18 17:58 Dose: 650 mg Amiodarone HCl (Cordarone) 200 mg PO DAILY [facility] Last Admin: 06/09/18 10:16 Dose: 200 mg Apixaban (Eliquis) 2.5 mg PO BID [facility] Last Admin: 06/09/18 18:11 Dose: 2.5 mg Budesonide (Pulmicort Respules) 1 mg IH BID [facility] Calcium Acetate (Phoslo) 667 mg PO TID [facility] Last Admin: 06/09/18 18:11 Dose: 667 mg Docusate Sodium (Colace) 100 mg PO TID [facility] Last Admin: 06/09/18 18:11 Dose: 100 mg Epoetin [place] (Procrit) 10,000 unit IV MWF [facility] Last Admin: 06/10/18 10:53 Dose: 10,000 unit Famotidine (Pepcid) 20 mg PO DAILY [facility] Last Admin: 06/09/18 10:16 Dose: 20 mg Ferrous Sulfate (Feosol) 325 mg PO DAILY [facility] Last Admin: 06/09/18 10:16 Dose: 325 mg Fluticasone/Vilanterol (Breo Ellipta 200-25 Mcg Inh) 1 puff INH DAILY [facility] Glipizide (Glucotrol) 10 mg PO ACBD [facility] Last Admin: 06/10/18 07:54 Dose: 10 mg Guaifenesin (Robitussin) 100 mg PO Q4H PRN PRN Reason: Cough Last Admin: 06/10/18 02:41 Dose: 100 mg Fluconazole (Diflucan Iv 100 Mg/50 Ml Ns) 50 mls @ 100 mls/hr IVPB DAILY [facility]; Protocol Last Admin: 06/09/18 10:16 Dose: 100 mls/hr Linezolid (Zyvox 600mg/300ml D5w) 600 mg in 300 mls @ 200 mls/hr IVPB Q12H [facility]; Protocol Last Admin: 06/10/18 04:41 Dose: 200 mls/hr Insulin Detemir (Levemir) 12 unit SC DAILY [facility] Last Admin: 06/09/18 10:17 Dose: Not Given Insulin Human Regular (Novolin R) 0 unit SC ACHS [facility]; Protocol Last Admin: 06/10/18 07:55 Dose: Not Given Ipratropium [place] (Atrovent) 0.5 mg IH RQ6 PRN PRN Reason: Shortness of Breath Last Admin: 06/09/18 07:35 Dose: 0.5 mg Levothyroxine Sodium (Synthroid) 75 mcg PO DAILY@0630 [facility] Last Admin: 06/10/18 05:33 Dose: 75 mcg Metoprolol Tartrate (Lopressor) 25 mg PO BID [facility] Last Admin: 06/09/18 18:11 Dose: 25 mg Promethazine HCl/Codeine (Phenergan/Codeine Oral Syrup) 5 ml PO Q6 PRN PRN Reason: Cough and congestion Last Admin: 06/10/18 07:02 Dose: 5 ml Rosuvastatin Calcium (Crestor) 5 mg PO HS [facility] Last Admin: 06/09/18 21:45 Dose: 5 mg Tiotropium [place] (Spiriva) 18 mcg INH RQ24 [facility] Last Admin: 06/10/18 07:54 Dose: 18 mcg - Labs Labs: 06/08/18 11:20 06/03/18 10:15 - Constitutional Appears: Non-toxic, No Acute Distress, Chronically Ill - Head Exam Head Exam: ATRAUMATIC, NORMAL INSPECTION - Eye Exam Eye Exam: EOMI - ENT Exam ENT Exam: Mucous Membranes Moist - Neck Exam Neck Exam: Full ROM. absent: Lymphadenopathy - Respiratory Exam Respiratory Exam: Rhonchi. absent: Wheezes - Cardiovascular Exam Cardiovascular Exam: REGULAR RHYTHM. absent: Rubs - GI/Abdominal Exam GI & Abdominal Exam: Soft. absent: Distended, Tenderness - Extremities Exam Extremities Exam: absent: Pedal Edema - Neurological Exam Neurological Exam: Alert, Awake Assessment and Plan - Assessment and Plan (Free Text) Assessment: esrd, maint HD on AB for UTI pulmonary toilet history of myeloma kidney
--- NOTE | 2018-06-10 14:06 | CP.PCM.PN ---
Subjective - Date & Time of Evaluation Date of Evaluation: 06/10/18 Time of Evaluation: 14:06 Objective - Vital Signs/Intake and Output Vital Signs (last 24 hours): Temp Pulse Resp BP Pulse Ox 97.7 F 79 16 114/54 L 99 06/10/18 12:40 06/10/18 12:40 06/10/18 12:40 06/10/18 12:40 06/10/18 12:40 - Medications Medications: Current Medications Acetaminophen (Tylenol 325mg Tab) 650 mg PO Q6 PRN PRN Reason: Fever >100.4 F Last Admin: 06/06/18 17:58 Dose: 650 mg Amiodarone HCl (Cordarone) 200 mg PO DAILY [facility] Last Admin: 06/09/18 10:16 Dose: 200 mg Apixaban (Eliquis) 2.5 mg PO BID [facility] Last Admin: 06/09/18 18:11 Dose: 2.5 mg Budesonide (Pulmicort Respules) 1 mg IH BID [facility] Calcium Acetate (Phoslo) 667 mg PO TID [facility] Last Admin: 06/09/18 18:11 Dose: 667 mg Docusate Sodium (Colace) 100 mg PO TID [facility] Last Admin: 06/09/18 18:11 Dose: 100 mg Epoetin Eddie (Procrit) 10,000 unit IV MWF [facility] Last Admin: 06/10/18 10:53 Dose: 10,000 unit Famotidine (Pepcid) 20 mg PO DAILY [facility] Last Admin: 06/09/18 10:16 Dose: 20 mg Ferrous Sulfate (Feosol) 325 mg PO DAILY [facility] Last Admin: 06/09/18 10:16 Dose: 325 mg Fluticasone/Vilanterol (Breo Ellipta 200-25 Mcg Inh) 1 puff INH DAILY [facility] Glipizide (Glucotrol) 10 mg PO ACBD [facility] Last Admin: 06/10/18 07:54 Dose: 10 mg Guaifenesin (Robitussin) 100 mg PO Q4H PRN PRN Reason: Cough Last Admin: 06/10/18 02:41 Dose: 100 mg Fluconazole (Diflucan Iv 100 Mg/50 Ml Ns) 50 mls @ 100 mls/hr IVPB DAILY [facility]; Protocol Last Admin: 06/09/18 10:16 Dose: 100 mls/hr Linezolid (Zyvox 600mg/300ml D5w) 600 mg in 300 mls @ 200 mls/hr IVPB Q12H [facility]; Protocol Last Admin: 06/10/18 04:41 Dose: 200 mls/hr Insulin Detemir (Levemir) 12 unit SC DAILY [facility] Last Admin: 06/09/18 10:17 Dose: Not Given Insulin Human Regular (Novolin R) 0 unit SC ACHS [facility]; Protocol Last Admin: 06/10/18 07:55 Dose: Not Given Ipratropium [place] (Atrovent) 0.5 mg IH RQ6 PRN PRN Reason: Shortness of Breath Last Admin: 06/09/18 07:35 Dose: 0.5 mg Levothyroxine Sodium (Synthroid) 75 mcg PO DAILY@0630 [facility] Last Admin: 06/10/18 05:33 Dose: 75 mcg Metoprolol Tartrate (Lopressor) 25 mg PO BID [facility] Last Admin: 06/09/18 18:11 Dose: 25 mg Promethazine HCl/Codeine (Phenergan/Codeine Oral Syrup) 5 ml PO Q6 PRN PRN Reason: Cough and congestion Last Admin: 06/10/18 07:02 Dose: 5 ml Rosuvastatin Calcium (Crestor) 5 mg PO HS [facility] Last Admin: 06/09/18 21:45 Dose: 5 mg Tiotropium [place] (Spiriva) 18 mcg INH RQ24 [facility] Last Admin: 06/10/18 07:54 Dose: 18 mcg - Labs Labs: 06/08/18 11:20 06/03/18 10:15 Assessment and Plan (1) Anemia Status: Acute (2) ESRD (end stage renal disease) on dialysis Status: Acute (3) COPD (chronic obstructive pulmonary disease) Status: Acute
[2018-06-10] MEDS: Insulin Detemir 100 units/ml Vial (Levemir) SC SCH (14:23)
[2018-06-10] MEDS: Budesonide 0.5 mg/2 ml Inhal Susp UD IH SCH ×3 (14:26→18:39)
[2018-06-10] MEDS: Fluconazole IV 100mg/50 ml NS 50 ML IVPB SCH (18:35)
--- NOTE | 2018-06-10 18:46 | CP.PCM.PN ---
Subjective - Date & Time of Evaluation Date of Evaluation: 06/10/18 Time of Evaluation: 09:15 - Subjective Subjective: clinically same Objective - Vital Signs/Intake and Output Vital Signs (last 24 hours): Temp Pulse Resp BP Pulse Ox 101.5 F H 86 20 127/74 95 06/10/18 18:08 06/10/18 16:05 06/10/18 16:05 06/10/18 16:05 06/10/18 16:05 - Medications Medications: Current Medications Acetaminophen (Tylenol 325mg Tab) 650 mg PO Q6 PRN PRN Reason: Fever >100.4 F Last Admin: 06/06/18 17:58 Dose: 650 mg Amiodarone HCl (Cordarone) 200 mg PO DAILY [facility] Last Admin: 06/10/18 14:24 Dose: 200 mg Apixaban (Eliquis) 2.5 mg PO BID [facility] Last Admin: 06/10/18 18:36 Dose: 2.5 mg Budesonide (Pulmicort Respules) 1 mg IH BID [facility] Last Admin: 06/10/18 18:39 Dose: 1 mg Calcium Acetate (Phoslo) 667 mg PO TID [facility] Last Admin: 06/10/18 18:38 Dose: 667 mg Docusate Sodium (Colace) 100 mg PO TID [facility] Last Admin: 06/10/18 18:35 Dose: 100 mg Epoetin Eddie (Procrit) 10,000 unit IV MWF [facility] Last Admin: 06/10/18 10:53 Dose: 10,000 unit Famotidine (Pepcid) 20 mg PO DAILY [facility] Last Admin: 06/10/18 14:24 Dose: 20 mg Ferrous Sulfate (Feosol) 325 mg PO DAILY [facility] Last Admin: 06/10/18 14:25 Dose: 325 mg Fluticasone/Vilanterol (Breo Ellipta 200-25 Mcg Inh) 1 puff INH DAILY [facility] Glipizide (Glucotrol) 10 mg PO ACBD [facility] Last Admin: 06/10/18 18:36 Dose: 10 mg Guaifenesin (Robitussin) 100 mg PO Q4H PRN PRN Reason: Cough Last Admin: 06/10/18 02:41 Dose: 100 mg Fluconazole (Diflucan Iv 100 Mg/50 Ml Ns) 50 mls @ 100 mls/hr IVPB DAILY [facility]; Protocol Last Admin: 06/10/18 18:35 Dose: 100 mls/hr Linezolid (Zyvox 600mg/300ml D5w) 600 mg in 300 mls @ 200 mls/hr IVPB Q12H [facility]; Protocol Last Admin: 06/10/18 18:39 Dose: 200 mls/hr Insulin Detemir (Levemir) 12 unit SC DAILY [facility] Last Admin: 06/10/18 14:23 Dose: 12 units Insulin Human Regular (Novolin R) 0 unit SC ACHS [facility]; Protocol Last Admin: 06/10/18 18:37 Dose: Not Given Ipratropium [place] (Atrovent) 0.5 mg IH RQ6 PRN PRN Reason: Shortness of Breath Last Admin: 06/09/18 07:35 Dose: 0.5 mg Levothyroxine Sodium (Synthroid) 75 mcg PO DAILY@0630 [facility] Last Admin: 06/10/18 05:33 Dose: 75 mcg Metoprolol Tartrate (Lopressor) 25 mg PO BID [facility] Last Admin: 06/10/18 14:24 Dose: 25 mg Promethazine HCl/Codeine (Phenergan/Codeine Oral Syrup) 5 ml PO Q6 PRN PRN Reason: Cough and congestion Last Admin: 06/10/18 14:25 Dose: 5 ml Rosuvastatin Calcium (Crestor) 5 mg PO HS [facility] Last Admin: 06/09/18 21:45 Dose: 5 mg Tiotropium [place] (Spiriva) 18 mcg INH RQ24 [facility] Last Admin: 06/10/18 07:54 Dose: 18 mcg - Labs Labs: 06/08/18 11:20 06/03/18 10:15
[2018-06-11] MEDS: Promethazine/Cod 6.25mg-10mg/5ml Syr UD PO PRN ×3 (00:56→19:10)
[2018-06-11] MEDS: Linezolid 600 mg in D5W 300 ml 600 MG/300 ML BAG IVPB SCH ×2 (06:19→19:00)
[2018-06-11] MEDS: Levothyroxine 75 MCG TAB PO SCH (06:19)
[2018-06-11] MEDS: Tiotropium 18 mcg Cap For Inhalation INH SCH (07:50)
[2018-06-11] MEDS: (Novolin R) Insulin Human Regular 100 units/ml vial SC SCH ×4 (07:52→21:24)
[2018-06-11] MEDS: Fluconazole IV 100mg/50 ml NS 50 ML IVPB SCH (09:39)
[2018-06-11] MEDS: Insulin Detemir 100 units/ml Vial (Levemir) SC SCH (09:58)
--- NOTE | 2018-06-11 11:10 | CP.PCM.PN ---
Subjective - Date & Time of Evaluation Date of Evaluation: 06/11/18 Time of Evaluation: 11:10 - Subjective Subjective: agfebrile dialysis last PM comfortable in bed appears anxiuos less cough ROS no chest pain cough no abd pain,N,V,D No dysuria Objective - Vital Signs/Intake and Output Vital Signs (last 24 hours): Temp Pulse Resp BP Pulse Ox 97.7 F 74 18 117/62 100 06/11/18 07:31 06/11/18 07:31 06/11/18 07:31 06/11/18 09:36 06/11/18 07:31 - Medications Medications: Current Medications Acetaminophen (Tylenol 325mg Tab) 650 mg PO Q6 PRN PRN Reason: Fever >100.4 F Last Admin: 06/06/18 17:58 Dose: 650 mg Amiodarone HCl (Cordarone) 200 mg PO DAILY [facility] Last Admin: 06/11/18 09:39 Dose: 200 mg Apixaban (Eliquis) 2.5 mg PO BID [facility] Last Admin: 06/11/18 09:36 Dose: 2.5 mg Budesonide (Pulmicort Respules) 1 mg IH BID [facility] Last Admin: 06/10/18 18:39 Dose: 1 mg Calcium Acetate (Phoslo) 667 mg PO TID [facility] Last Admin: 06/11/18 09:39 Dose: 667 mg Docusate Sodium (Colace) 100 mg PO TID [facility] Last Admin: 06/11/18 09:39 Dose: 100 mg Epoetin Eddie (Procrit) 10,000 unit IV MWF [facility] Last Admin: 06/10/18 10:53 Dose: 10,000 unit Famotidine (Pepcid) 20 mg PO DAILY [facility] Last Admin: 06/11/18 09:39 Dose: 20 mg Ferrous Sulfate (Feosol) 325 mg PO DAILY [facility] Last Admin: 06/11/18 09:39 Dose: 325 mg Fluticasone/Vilanterol (Breo Ellipta 200-25 Mcg Inh) 1 puff INH DAILY [facility] Glipizide (Glucotrol) 10 mg PO ACBD [facility] Last Admin: 06/11/18 07:56 Dose: 10 mg Guaifenesin (Robitussin) 100 mg PO Q4H PRN PRN Reason: Cough Last Admin: 06/10/18 02:41 Dose: 100 mg Fluconazole (Diflucan Iv 100 Mg/50 Ml Ns) 50 mls @ 100 mls/hr IVPB DAILY [facility]; Protocol Last Admin: 06/11/18 09:39 Dose: 100 mls/hr Linezolid (Zyvox 600mg/300ml D5w) 600 mg in 300 mls @ 200 mls/hr IVPB Q12H [facility]; Protocol Last Admin: 06/11/18 06:19 Dose: 200 mls/hr Insulin Detemir (Levemir) 12 unit SC DAILY [facility] Last Admin: 06/11/18 09:58 Dose: Not Given Insulin Human Regular (Novolin R) 0 unit SC ACHS [facility]; Protocol Last Admin: 06/11/18 07:52 Dose: Not Given Ipratropium [place] (Atrovent) 0.5 mg IH RQ6 PRN PRN Reason: Shortness of Breath Last Admin: 06/09/18 07:35 Dose: 0.5 mg Levothyroxine Sodium (Synthroid) 75 mcg PO DAILY@0630 [facility] Last Admin: 06/11/18 06:19 Dose: 75 mcg Metoprolol Tartrate (Lopressor) 25 mg PO BID [facility] Last Admin: 06/11/18 09:36 Dose: 25 mg Promethazine HCl/Codeine (Phenergan/Codeine Oral Syrup) 5 ml PO Q6 PRN PRN Reason: Cough and congestion Last Admin: 06/11/18 00:56 Dose: 5 ml Rosuvastatin Calcium (Crestor) 5 mg PO HS [facility] Last Admin: 06/10/18 21:23 Dose: 5 mg Tiotropium [place] (Spiriva) 18 mcg INH RQ24 [facility] Last Admin: 06/11/18 07:50 Dose: 18 mcg - Labs Labs: 06/08/18 11:20 06/03/18 10:15 - Constitutional Appears: No Acute Distress - ENT Exam ENT Exam: Mucous Membranes Moist - Respiratory Exam Respiratory Exam: Clear to Ausculation Bilateral, NORMAL BREATHING PATTERN - Cardiovascular Exam Cardiovascular Exam: REGULAR RHYTHM. absent: JVD - GI/Abdominal Exam GI & Abdominal Exam: Soft. absent: Distended, Tenderness - Neurological Exam Neurological Exam: Alert, Awake - Psychiatric Exam Psychiatric exam: Anxious - Skin Skin Exam: Dry Assessment and Plan (1) ESRD (end stage renal disease) on dialysis Status: Acute (2) Bronchitis Status: Acute (3) COPD (chronic obstructive pulmonary disease) Status: Acute (4) Myeloma kidney Status: Acute - Assessment and Plan (Free Text) Plan: schedule dialysis for 06/12 orders written ultrafiltrate
--- NOTE | 2018-06-11 14:38 | CP.PCM.PN ---
Subjective - Date & Time of Evaluation Date of Evaluation: 06/11/18 Time of Evaluation: 08:45 - Subjective Subjective: clinically same Objective - Vital Signs/Intake and Output Vital Signs (last 24 hours): Temp Pulse Resp BP Pulse Ox 97.7 F 74 18 117/62 100 06/11/18 07:31 06/11/18 07:31 06/11/18 07:31 06/11/18 09:36 06/11/18 07:31 - Medications Medications: Current Medications Acetaminophen (Tylenol 325mg Tab) 650 mg PO Q6 PRN PRN Reason: Fever >100.4 F Last Admin: 06/06/18 17:58 Dose: 650 mg Amiodarone HCl (Cordarone) 200 mg PO DAILY [facility] Last Admin: 06/11/18 09:39 Dose: 200 mg Apixaban (Eliquis) 2.5 mg PO BID [facility] Last Admin: 06/11/18 09:36 Dose: 2.5 mg Budesonide (Pulmicort Respules) 1 mg IH BID [facility] Last Admin: 06/10/18 18:39 Dose: 1 mg Calcium Acetate (Phoslo) 667 mg PO TID [facility] Last Admin: 06/11/18 13:06 Dose: 667 mg Docusate Sodium (Colace) 100 mg PO TID [facility] Last Admin: 06/11/18 13:06 Dose: 100 mg Epoetin Eddie (Procrit) 10,000 unit IV MWF [facility] Last Admin: 06/10/18 10:53 Dose: 10,000 unit Famotidine (Pepcid) 20 mg PO DAILY [facility] Last Admin: 06/11/18 09:39 Dose: 20 mg Ferrous Sulfate (Feosol) 325 mg PO DAILY [facility] Last Admin: 06/11/18 09:39 Dose: 325 mg Fluticasone/Vilanterol (Breo Ellipta 200-25 Mcg Inh) 1 puff INH DAILY [facility] Glipizide (Glucotrol) 10 mg PO ACBD [facility] Last Admin: 06/11/18 07:56 Dose: 10 mg Guaifenesin (Robitussin) 100 mg PO Q4H PRN PRN Reason: Cough Last Admin: 06/10/18 02:41 Dose: 100 mg Fluconazole (Diflucan Iv 100 Mg/50 Ml Ns) 50 mls @ 100 mls/hr IVPB DAILY [facility]; Protocol Last Admin: 06/11/18 09:39 Dose: 100 mls/hr Linezolid (Zyvox 600mg/300ml D5w) 600 mg in 300 mls @ 200 mls/hr IVPB Q12H [facility]; Protocol Last Admin: 06/11/18 06:19 Dose: 200 mls/hr Insulin Detemir (Levemir) 12 unit SC DAILY [facility] Last Admin: 06/11/18 09:58 Dose: Not Given Insulin Human Regular (Novolin R) 0 unit SC ACHS [facility]; Protocol Last Admin: 06/11/18 12:47 Dose: Not Given Ipratropium [place] (Atrovent) 0.5 mg IH RQ6 PRN PRN Reason: Shortness of Breath Last Admin: 06/09/18 07:35 Dose: 0.5 mg Levothyroxine Sodium (Synthroid) 75 mcg PO DAILY@0630 [facility] Last Admin: 06/11/18 06:19 Dose: 75 mcg Metoprolol Tartrate (Lopressor) 25 mg PO BID [facility] Last Admin: 06/11/18 09:36 Dose: 25 mg Promethazine HCl/Codeine (Phenergan/Codeine Oral Syrup) 5 ml PO Q6 PRN PRN Reason: Cough and congestion Last Admin: 06/11/18 12:46 Dose: 5 ml Rosuvastatin Calcium (Crestor) 5 mg PO HS [facility] Last Admin: 06/10/18 21:23 Dose: 5 mg Tiotropium [place] (Spiriva) 18 mcg INH RQ24 [facility] Last Admin: 06/11/18 07:50 Dose: 18 mcg - Labs Labs: 06/08/18 11:20 06/03/18 10:15
--- NOTE | 2018-06-11 15:23 | CP.PCM.PN ---
Subjective - Date & Time of Evaluation Date of Evaluation: 06/11/18 Time of Evaluation: 15:22 - Subjective Subjective: Patient is seen and examined No events overnight Objective - Vital Signs/Intake and Output Vital Signs (last 24 hours): Temp Pulse Resp BP Pulse Ox 97.7 F 74 18 117/62 100 06/11/18 07:31 06/11/18 07:31 06/11/18 07:31 06/11/18 09:36 06/11/18 07:31 - Medications Medications: Current Medications Acetaminophen (Tylenol 325mg Tab) 650 mg PO Q6 PRN PRN Reason: Fever >100.4 F Last Admin: 06/06/18 17:58 Dose: 650 mg Amiodarone HCl (Cordarone) 200 mg PO DAILY [facility] Last Admin: 06/11/18 09:39 Dose: 200 mg Apixaban (Eliquis) 2.5 mg PO BID [facility] Last Admin: 06/11/18 09:36 Dose: 2.5 mg Budesonide (Pulmicort Respules) 1 mg IH BID [facility] Last Admin: 06/10/18 18:39 Dose: 1 mg Calcium Acetate (Phoslo) 667 mg PO TID [facility] Last Admin: 06/11/18 13:06 Dose: 667 mg Docusate Sodium (Colace) 100 mg PO TID [facility] Last Admin: 06/11/18 13:06 Dose: 100 mg Epoetin [place] (Procrit) 10,000 unit IV MWF [facility] Last Admin: 06/10/18 10:53 Dose: 10,000 unit Famotidine (Pepcid) 20 mg PO DAILY [facility] Last Admin: 06/11/18 09:39 Dose: 20 mg Ferrous Sulfate (Feosol) 325 mg PO DAILY [facility] Last Admin: 06/11/18 09:39 Dose: 325 mg Fluticasone/Vilanterol (Breo Ellipta 200-25 Mcg Inh) 1 puff INH DAILY [facility] Glipizide (Glucotrol) 10 mg PO ACBD [facility] Last Admin: 06/11/18 07:56 Dose: 10 mg Guaifenesin (Robitussin) 100 mg PO Q4H PRN PRN Reason: Cough Last Admin: 06/10/18 02:41 Dose: 100 mg Fluconazole (Diflucan Iv 100 Mg/50 Ml Ns) 50 mls @ 100 mls/hr IVPB DAILY [facility]; Protocol Last Admin: 06/11/18 09:39 Dose: 100 mls/hr Linezolid (Zyvox 600mg/300ml D5w) 600 mg in 300 mls @ 200 mls/hr IVPB Q12H [facility]; Protocol Last Admin: 06/11/18 06:19 Dose: 200 mls/hr Insulin Detemir (Levemir) 12 unit SC DAILY [facility] Last Admin: 06/11/18 09:58 Dose: Not Given Insulin Human Regular (Novolin R) 0 unit SC ACHS [facility]; Protocol Last Admin: 06/11/18 12:47 Dose: Not Given Ipratropium [place] (Atrovent) 0.5 mg IH RQ6 PRN PRN Reason: Shortness of Breath Last Admin: 06/09/18 07:35 Dose: 0.5 mg Levothyroxine Sodium (Synthroid) 75 mcg PO DAILY@0630 [facility] Last Admin: 06/11/18 06:19 Dose: 75 mcg Metoprolol Tartrate (Lopressor) 25 mg PO BID [facility] Last Admin: 06/11/18 09:36 Dose: 25 mg Promethazine HCl/Codeine (Phenergan/Codeine Oral Syrup) 5 ml PO Q6 PRN PRN Reason: Cough and congestion Last Admin: 06/11/18 12:46 Dose: 5 ml Rosuvastatin Calcium (Crestor) 5 mg PO HS [facility] Last Admin: 06/10/18 21:23 Dose: 5 mg Tiotropium [place] (Spiriva) 18 mcg INH RQ24 [facility] Last Admin: 06/11/18 07:50 Dose: 18 mcg - Labs Labs: 06/08/18 11:20 06/03/18 10:15 - Head Exam Head Exam: NORMAL INSPECTION - Eye Exam Eye Exam: Normal appearance - ENT Exam ENT Exam: Mucous Membranes Moist - Respiratory Exam Respiratory Exam: Clear to Ausculation Bilateral - Cardiovascular Exam Cardiovascular Exam: REGULAR RHYTHM, +S1, +S2 - GI/Abdominal Exam GI & Abdominal Exam: Soft, Normal Bowel Sounds - Extremities Exam Extremities Exam: Normal Inspection - Neurological Exam Neurological Exam: Alert, Oriented x3 Assessment and Plan (1) Anemia Status: Acute (2) ESRD (end stage renal disease) on dialysis Status: Acute (3) COPD (chronic obstructive pulmonary disease) Status: Acute - Assessment and Plan (Free Text) Plan: Kimberlee Irizarryta 200/25 mcg 1 puff daily Spiriva 18 mcg 2 puff daily Promethazine with codeine as needed Continue antibiotic Bronchodilators HD as per schedule DVT/GI prophalaxis
[2018-06-12] MEDS: Promethazine/Cod 6.25mg-10mg/5ml Syr UD PO PRN ×3 (01:17→18:56)
[2018-06-12] MEDS: Linezolid 600 mg in D5W 300 ml 600 MG/300 ML BAG IVPB SCH ×2 (05:38→18:56)
[2018-06-12] MEDS: Levothyroxine 75 MCG TAB PO SCH (05:40)
[2018-06-12] MEDS: Tiotropium 18 mcg Cap For Inhalation INH SCH (07:35)
[2018-06-12] MEDS: Ipratropium 0.02% Inhal Soln (0.5 mg/2.5 ml) UD IH PRN (07:35)
[2018-06-12] MEDS: Insulin Detemir 100 units/ml Vial (Levemir) SC SCH (09:04)
[2018-06-12] MEDS: (Novolin R) Insulin Human Regular 100 units/ml vial SC SCH ×4 (09:04→21:20)
[2018-06-12 09:34] LABS: BASO # 0.1 K/uL (0.0-0.2); BASO % 0.6 % (0.0-2.0); EOS # 0.1 K/uL (0.0-0.7); EOS % 0.3 % (0.0-4.0); HEMOGLOBIN 7.7 g/dL (11.0-16.0); LYMPH # 1.8 K/uL (1.0-4.3); LYMPH % 11.1 % (20.0-40.0); MEAN CELL VOLUME 88.9 fL (81.0-99.0); MEAN CORPUSCULAR HEMOGLOBIN 27.7 pg (27.0-31.0); MEAN CORPUSCULAR HGB CONC 31.1 g/dL (33.0-37.0); MEAN PLATELET VOLUME 9.3 fL (7.2-11.7); MONO % 6.3 % (0.0-10.0); NEUT % 81.7 % (50.0-75.0); RBC 2.79 Mil/uL (3.80-5.20); RED CELL DISTRIBUTION WIDTH 16.3 % (11.5-14.5)
[2018-06-12 09:56] LABS: ALB/GLOB RATIO 0.8 (1.0-2.1); ALBUMIN 2.9 g/dL (3.5-5.0)
[2018-06-12] MEDS: Fluconazole IV 100mg/50 ml NS 50 ML IVPB SCH ×2 (10:57→14:55)
[2018-06-12] MEDS: Epoetin Alfa 10,000 unit/ml Dialysis IV SCH (12:21)
--- NOTE | 2018-06-12 13:02 | CP.PCM.PN ---
Subjective - Date & Time of Evaluation Date of Evaluation: 06/12/18 Time of Evaluation: 12:59 - Subjective Subjective: HD today still feels weak poor appetite occasional vomiting continued cough no headache no fever decreased urine production no rash no arthralgias no abdominal pain Objective - Vital Signs/Intake and Output Vital Signs (last 24 hours): Temp Pulse Resp BP Pulse Ox 97.4 F L 85 22 160/65 H 96 06/12/18 12:35 06/12/18 12:35 06/12/18 12:35 06/12/18 12:35 06/12/18 09:30 Intake and Output: 06/12/18 06/12/18 06:59 18:59 Intake Total 450 20 Balance 450 20 - Medications Medications: Current Medications Acetaminophen (Tylenol 325mg Tab) 650 mg PO Q6 PRN PRN Reason: Fever >100.4 F Last Admin: 06/06/18 17:58 Dose: 650 mg Amiodarone HCl (Cordarone) 200 mg PO DAILY [facility] Last Admin: 06/12/18 09:03 Dose: Not Given Apixaban (Eliquis) 2.5 mg PO BID [facility] Last Admin: 06/12/18 09:03 Dose: Not Given Budesonide (Pulmicort Respules) 1 mg IH BID [facility] Last Admin: 06/10/18 18:39 Dose: 1 mg Calcium Acetate (Phoslo) 667 mg PO TID [facility] Last Admin: 06/12/18 09:05 Dose: Not Given Docusate Sodium (Colace) 100 mg PO TID [facility] Last Admin: 06/12/18 09:02 Dose: Not Given Epoetin [place] (Procrit) 10,000 unit IV MWF [facility] Last Admin: 06/12/18 12:21 Dose: 10,000 unit Famotidine (Pepcid) 20 mg PO DAILY [facility] Last Admin: 06/12/18 09:05 Dose: Not Given Ferrous Sulfate (Feosol) 325 mg PO DAILY [facility] Last Admin: 06/12/18 09:03 Dose: Not Given Fluticasone/Vilanterol (Breo Ellipta 200-25 Mcg Inh) 1 puff INH DAILY [facility] Glipizide (Glucotrol) 10 mg PO ACBD [facility] Last Admin: 06/12/18 09:04 Dose: Not Given Guaifenesin (Robitussin) 100 mg PO Q4H PRN PRN Reason: Cough Last Admin: 06/10/18 02:41 Dose: 100 mg Fluconazole (Diflucan Iv 100 Mg/50 Ml Ns) 50 mls @ 100 mls/hr IVPB DAILY [facility]; Protocol Last Admin: 06/11/18 09:39 Dose: 100 mls/hr Linezolid (Zyvox 600mg/300ml D5w) 600 mg in 300 mls @ 200 mls/hr IVPB Q12H [facility]; Protocol Last Admin: 06/12/18 05:38 Dose: 200 mls/hr Insulin Detemir (Levemir) 12 unit SC DAILY [facility] Last Admin: 06/12/18 09:04 Dose: Not Given Insulin Human Regular (Novolin R) 0 unit SC ACHS [facility]; Protocol Last Admin: 06/12/18 12:00 Dose: Not Given Ipratropium [place] (Atrovent) 0.5 mg IH RQ6 PRN PRN Reason: Shortness of Breath Last Admin: 06/12/18 07:35 Dose: 0.5 mg Levothyroxine Sodium (Synthroid) 75 mcg PO DAILY@0630 [facility] Last Admin: 06/12/18 05:40 Dose: 75 mcg Metoprolol Tartrate (Lopressor) 25 mg PO BID [facility] Last Admin: 06/12/18 09:04 Dose: Not Given Promethazine HCl/Codeine (Phenergan/Codeine Oral Syrup) 5 ml PO Q6 PRN PRN Reason: Cough and congestion Last Admin: 06/12/18 01:17 Dose: 5 ml Rosuvastatin Calcium (Crestor) 5 mg PO HS [facility] Last Admin: 06/11/18 21:23 Dose: 5 mg Tiotropium [place] (Spiriva) 18 mcg INH RQ24 [facility] Last Admin: 06/12/18 07:35 Dose: 18 mcg - Labs Labs: 06/12/18 09:30 06/12/18 09:30 - Constitutional Appears: No Acute Distress, Chronically Ill - Head Exam Head Exam: ATRAUMATIC, NORMAL INSPECTION - Eye Exam Eye Exam: EOMI - ENT Exam ENT Exam: Mucous Membranes Moist - Neck Exam Neck Exam: Full ROM. absent: Lymphadenopathy - Respiratory Exam Respiratory Exam: Decreased Breath Sounds, Rhonchi - Cardiovascular Exam Cardiovascular Exam: REGULAR RHYTHM. absent: Rubs - GI/Abdominal Exam GI & Abdominal Exam: Distended, Soft. absent: Tenderness - Extremities Exam Extremities Exam: absent: Pedal Edema - Neurological Exam Neurological Exam: Alert Assessment and Plan - Assessment and Plan (Free Text) Assessment: HD today pulmonary toilet on AB for UTI check amylase, lipase, abdominal US
--- NOTE | 2018-06-12 15:11 | US ---
Date of service: 06/12/2018 HISTORY: nausea and vomiting COMPARISON: CT chest, abdomen, and pelvis without IV contrast performed 06/03/18 TECHNIQUE: Sonographic evaluation of the right upper quadrant of the abdomen. FINDINGS: LIVER: Measures 12.8 cm in length. Echogenic liver may be seen in setting of hepatic parenchymal disease or fatty infiltration. No focal hepatic mass identified. The main portal vein appears patent with normal directional flow. No intrahepatic bile duct dilatation. GALLBLADDER: Gallstones. No gallbladder wall thickening or pericholecystic edema. Negative sonographic Wei's sign as assessed by the doll dresser. COMMON BILE DUCT: Measures 6 mm. PANCREAS: Not well-visualized. RIGHT KIDNEY: Measures approximately 9.6 x 4.7 x 5.3 cm. No obstructing calculus or hydronephrosis. Cortical thinning. AORTA: Limited visualization appears grossly unremarkable. IVC: Limited visualization appears grossly unremarkable. OTHER FINDINGS: None . IMPRESSION: Echogenic liver may be seen in setting of hepatic parenchymal disease or fatty infiltration. Cholelithiasis. Right renal cortical thinning.
--- NOTE | 2018-06-12 16:19 | CP.PCM.PN ---
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 Objective - Vital Signs/Intake and Output Vital Signs (last 24 hours): Temp Pulse Resp BP Pulse Ox 97.6 F 89 18 153/78 H 97 06/12/18 15:00 06/12/18 15:00 06/12/18 15:00 06/12/18 15:00 06/12/18 15:00 Intake and Output: 06/12/18 06/12/18 06:59 18:59 Intake Total 450 365 Balance 450 365 - Medications Medications: Current Medications Acetaminophen (Tylenol 325mg Tab) 650 mg PO Q6 PRN PRN Reason: Fever >100.4 F Last Admin: 06/06/18 17:58 Dose: 650 mg Amiodarone HCl (Cordarone) 200 mg PO DAILY [facility] Last Admin: 06/12/18 14:22 Dose: 200 mg Apixaban (Eliquis) 2.5 mg PO BID [facility] Last Admin: 06/12/18 14:22 Dose: 2.5 mg Budesonide (Pulmicort Respules) 1 mg IH BID [facility] Last Admin: 06/10/18 18:39 Dose: 1 mg Calcium Acetate (Phoslo) 667 mg PO TID [facility] Last Admin: 06/12/18 14:14 Dose: 667 mg Docusate Sodium (Colace) 100 mg PO TID [facility] Last Admin: 06/12/18 14:14 Dose: 100 mg Epoetin [place] (Procrit) 10,000 unit IV MWF [facility] Last Admin: 06/12/18 12:21 Dose: 10,000 unit Famotidine (Pepcid) 20 mg PO DAILY [facility] Last Admin: 06/12/18 14:22 Dose: 20 mg Ferrous Sulfate (Feosol) 325 mg PO DAILY [facility] Last Admin: 06/12/18 14:22 Dose: 325 mg Fluticasone/Vilanterol (Breo Ellipta 200-25 Mcg Inh) 1 puff INH DAILY [facility] Glipizide (Glucotrol) 10 mg PO ACBD [facility] Last Admin: 06/12/18 09:04 Dose: Not Given Guaifenesin (Robitussin) 100 mg PO Q4H PRN PRN Reason: Cough Last Admin: 06/10/18 02:41 Dose: 100 mg Fluconazole (Diflucan Iv 100 Mg/50 Ml Ns) 50 mls @ 100 mls/hr IVPB DAILY [facility]; Protocol Last Admin: 06/12/18 14:55 Dose: 100 mls/hr Linezolid (Zyvox 600mg/300ml D5w) 600 mg in 300 mls @ 200 mls/hr IVPB Q12H [facility]; Protocol Last Admin: 06/12/18 05:38 Dose: 200 mls/hr Insulin Detemir (Levemir) 12 unit SC DAILY [facility] Last Admin: 06/12/18 09:04 Dose: Not Given Insulin Human Regular (Novolin R) 0 unit SC ACHS [facility]; Protocol Last Admin: 06/12/18 12:00 Dose: Not Given Ipratropium [place] (Atrovent) 0.5 mg IH RQ6 PRN PRN Reason: Shortness of Breath Last Admin: 06/12/18 07:35 Dose: 0.5 mg Levothyroxine Sodium (Synthroid) 75 mcg PO DAILY@0630 [facility] Last Admin: 06/12/18 05:40 Dose: 75 mcg Metoprolol Tartrate (Lopressor) 25 mg PO BID [facility] Last Admin: 06/12/18 09:04 Dose: Not Given Promethazine HCl/Codeine (Phenergan/Codeine Oral Syrup) 5 ml PO Q6 PRN PRN Reason: Cough and congestion Last Admin: 06/12/18 14:14 Dose: 5 ml Rosuvastatin Calcium (Crestor) 5 mg PO HS [facility] Last Admin: 06/11/18 21:23 Dose: 5 mg Tiotropium [place] (Spiriva) 18 mcg INH RQ24 [facility] Last Admin: 06/12/18 07:35 Dose: 18 mcg - Labs Labs: 06/12/18 09:30 06/12/18 09:30 - Constitutional Appears: Non-toxic, Chronically Ill - Head Exam Head Exam: NORMOCEPHALIC - Eye Exam Eye Exam: absent: Scleral icterus - ENT Exam ENT Exam: Mucous Membranes Dry - Neck Exam Neck Exam: absent: Lymphadenopathy - Respiratory Exam Respiratory Exam: Decreased Breath Sounds - Cardiovascular Exam Cardiovascular Exam: REGULAR RHYTHM - GI/Abdominal Exam GI & Abdominal Exam: Distended - Rectal Exam Rectal Exam: Deferred - Exam Exam: NORMAL INSPECTION - Extremities Exam Extremities Exam: absent: Pedal Edema - Back Exam Back Exam: absent: CVA tenderness (L), CVA tenderness (R) - Neurological Exam Neurological Exam: Alert, Awake Assessment and Plan (1) Anemia Status: Acute (2) ESRD (end stage renal disease) on dialysis Status: Acute (3) Acute bronchitis Status: Acute (4) Bronchitis Status: Acute (5) COPD (chronic obstructive pulmonary disease) Status: Acute (6) Leucocytosis Status: Acute (7) Myeloma kidney Status: Acute (8) Atrial fibrillation Status: Chronic (9) Chronic diastolic (congestive) heart failure Status: Chronic (10) Diabetes 1.5, managed as type 2 Status: Chronic - Assessment and Plan (Free Text) Assessment: + 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
[2018-06-12 17:06] LABS: AMYLASE 39 U/L (30-110); LIPASE 30 U/L (23-300)
--- NOTE | 2018-06-12 19:33 | CP.PCM.PN ---
Subjective - Date & Time of Evaluation Date of Evaluation: 06/12/18 Time of Evaluation: 09:00 - Subjective Subjective: clinically same Objective - Vital Signs/Intake and Output Vital Signs (last 24 hours): Temp Pulse Resp BP Pulse Ox 97.6 F 89 18 143/63 97 06/12/18 15:00 06/12/18 15:00 06/12/18 15:00 06/12/18 17:33 06/12/18 15:00 Intake and Output: 06/12/18 06/13/18 18:59 06:59 Intake Total 365 Balance 365 - Medications Medications: Current Medications Acetaminophen (Tylenol 325mg Tab) 650 mg PO Q6 PRN PRN Reason: Fever >100.4 F Last Admin: 06/06/18 17:58 Dose: 650 mg Amiodarone HCl (Cordarone) 200 mg PO DAILY [facility] Last Admin: 06/12/18 14:22 Dose: 200 mg Apixaban (Eliquis) 2.5 mg PO BID [facility] Last Admin: 06/12/18 17:33 Dose: 2.5 mg Budesonide (Pulmicort Respules) 1 mg IH BID [facility] Last Admin: 06/10/18 18:39 Dose: 1 mg Calcium Acetate (Phoslo) 667 mg PO TID [facility] Last Admin: 06/12/18 17:33 Dose: 667 mg Docusate Sodium (Colace) 100 mg PO TID [facility] Last Admin: 06/12/18 17:33 Dose: 100 mg Epoetin Eddie (Procrit) 10,000 unit IV MWF [facility] Last Admin: 06/12/18 12:21 Dose: 10,000 unit Famotidine (Pepcid) 20 mg PO DAILY [facility] Last Admin: 06/12/18 14:22 Dose: 20 mg Ferrous Sulfate (Feosol) 325 mg PO DAILY [facility] Last Admin: 06/12/18 14:22 Dose: 325 mg Fluticasone/Vilanterol (Breo Ellipta 200-25 Mcg Inh) 1 puff INH DAILY [facility] Glipizide (Glucotrol) 10 mg PO ACBD [facility] Last Admin: 06/12/18 17:33 Dose: 10 mg Guaifenesin (Robitussin) 100 mg PO Q4H PRN PRN Reason: Cough Last Admin: 06/10/18 02:41 Dose: 100 mg Fluconazole (Diflucan Iv 100 Mg/50 Ml Ns) 50 mls @ 100 mls/hr IVPB DAILY [facility]; Protocol Last Admin: 06/12/18 14:55 Dose: 100 mls/hr Linezolid (Zyvox 600mg/300ml D5w) 600 mg in 300 mls @ 200 mls/hr IVPB Q12H [facility]; Protocol Last Admin: 06/12/18 18:56 Dose: 200 mls/hr Insulin Detemir (Levemir) 12 unit SC DAILY [facility] Last Admin: 06/12/18 09:04 Dose: Not Given Insulin Human Regular (Novolin R) 0 unit SC ACHS [facility]; Protocol Last Admin: 06/12/18 17:29 Dose: Not Given Ipratropium [place] (Atrovent) 0.5 mg IH RQ6 PRN PRN Reason: Shortness of Breath Last Admin: 06/12/18 07:35 Dose: 0.5 mg Levothyroxine Sodium (Synthroid) 75 mcg PO DAILY@0630 [facility] Last Admin: 06/12/18 05:40 Dose: 75 mcg Metoprolol Tartrate (Lopressor) 25 mg PO BID [facility] Last Admin: 06/12/18 17:33 Dose: 25 mg Promethazine HCl/Codeine (Phenergan/Codeine Oral Syrup) 5 ml PO Q6 PRN PRN Reason: Cough and congestion Last Admin: 06/12/18 18:56 Dose: 5 ml Rosuvastatin Calcium (Crestor) 5 mg PO HS [facility] Last Admin: 06/11/18 21:23 Dose: 5 mg Tiotropium [place] (Spiriva) 18 mcg INH RQ24 [facility] Last Admin: 06/12/18 07:35 Dose: 18 mcg - Labs Labs: 06/12/18 09:30 06/12/18 09:30
[2018-06-13] MEDS: Linezolid 600 mg in D5W 300 ml 600 MG/300 ML BAG IVPB SCH ×2 (04:30→17:22)
[2018-06-13] MEDS: Levothyroxine 75 MCG TAB PO SCH (05:31)
[2018-06-13] MEDS: Tiotropium 18 mcg Cap For Inhalation INH SCH (07:30)
[2018-06-13] MEDS: Ipratropium 0.02% Inhal Soln (0.5 mg/2.5 ml) UD IH PRN (07:30)
[2018-06-13] MEDS: (Novolin R) Insulin Human Regular 100 units/ml vial SC SCH ×4 (07:44→21:57)
[2018-06-13] MEDS: Promethazine/Cod 6.25mg-10mg/5ml Syr UD PO PRN ×3 (08:12→18:57)
[2018-06-13] MEDS: Fluconazole IV 100mg/50 ml NS 50 ML IVPB SCH (09:33)
[2018-06-13] MEDS: Insulin Detemir 100 units/ml Vial (Levemir) SC SCH (09:35)
--- NOTE | 2018-06-13 09:48 | CP.PCM.PN ---
Subjective - Date & Time of Evaluation Date of Evaluation: 06/13/18 Time of Evaluation: 09:46 - Subjective Subjective: on zyvox for VRE UTI still with cough stable dialysis course- [facility] Objective - Vital Signs/Intake and Output Vital Signs (last 24 hours): Temp Pulse Resp BP Pulse Ox 98.2 F 79 20 145/73 95 06/13/18 07:00 06/13/18 07:00 06/13/18 07:00 06/13/18 09:34 06/13/18 07:00 - Medications Medications: Current Medications Acetaminophen (Tylenol 325mg Tab) 650 mg PO Q6 PRN PRN Reason: Fever >100.4 F Last Admin: 06/06/18 17:58 Dose: 650 mg Amiodarone HCl (Cordarone) 200 mg PO DAILY [facility] Last Admin: 06/13/18 09:34 Dose: 200 mg Apixaban (Eliquis) 2.5 mg PO BID [facility] Last Admin: 06/13/18 09:35 Dose: 2.5 mg Budesonide (Pulmicort Respules) 1 mg IH BID [facility] Last Admin: 06/10/18 18:39 Dose: 1 mg Calcium Acetate (Phoslo) 667 mg PO TID [facility] Last Admin: 06/13/18 09:34 Dose: 667 mg Docusate Sodium (Colace) 100 mg PO TID [facility] Last Admin: 06/13/18 09:34 Dose: 100 mg Epoetin Eddie (Procrit) 10,000 unit IV MWF [facility] Last Admin: 06/12/18 12:21 Dose: 10,000 unit Famotidine (Pepcid) 20 mg PO DAILY [facility] Last Admin: 06/13/18 09:34 Dose: 20 mg Ferrous Sulfate (Feosol) 325 mg PO DAILY [facility] Last Admin: 06/13/18 09:34 Dose: 325 mg Fluticasone/Vilanterol (Breo Ellipta 200-25 Mcg Inh) 1 puff INH DAILY [facility] Glipizide (Glucotrol) 10 mg PO ACBD [facility] Last Admin: 06/13/18 08:12 Dose: 10 mg Guaifenesin (Robitussin) 100 mg PO Q4H PRN PRN Reason: Cough Last Admin: 06/10/18 02:41 Dose: 100 mg Fluconazole (Diflucan Iv 100 Mg/50 Ml Ns) 50 mls @ 100 mls/hr IVPB DAILY [facility]; Protocol Last Admin: 06/13/18 09:33 Dose: 100 mls/hr Linezolid (Zyvox 600mg/300ml D5w) 600 mg in 300 mls @ 200 mls/hr IVPB Q12H [facility]; Protocol Last Admin: 06/13/18 04:30 Dose: 200 mls/hr Insulin Detemir (Levemir) 12 unit SC DAILY [facility] Last Admin: 06/13/18 09:35 Dose: Not Given Insulin Human Regular (Novolin R) 0 unit SC ACHS [facility]; Protocol Last Admin: 06/13/18 07:44 Dose: Not Given Ipratropium [place] (Atrovent) 0.5 mg IH RQ6 PRN PRN Reason: Shortness of Breath Last Admin: 06/13/18 07:30 Dose: 0.5 mg Levothyroxine Sodium (Synthroid) 75 mcg PO DAILY@0630 [facility] Last Admin: 06/13/18 05:31 Dose: 75 mcg Metoprolol Tartrate (Lopressor) 25 mg PO BID [facility] Last Admin: 06/13/18 09:34 Dose: 25 mg Promethazine HCl/Codeine (Phenergan/Codeine Oral Syrup) 5 ml PO Q6 PRN PRN Reason: Cough and congestion Last Admin: 06/13/18 08:12 Dose: 5 ml Rosuvastatin Calcium (Crestor) 5 mg PO HS [facility] Last Admin: 06/12/18 22:34 Dose: Not Given Tiotropium [place] (Spiriva) 18 mcg INH RQ24 [facility] Last Admin: 06/13/18 07:30 Dose: 18 mcg - Labs Labs: 06/12/18 09:30 06/12/18 09:30 - Constitutional Appears: No Acute Distress, Chronically Ill - Head Exam Head Exam: ATRAUMATIC, NORMAL INSPECTION - Eye Exam Eye Exam: EOMI, Normal appearance - Neck Exam Neck Exam: Normal Inspection. absent: Tenderness - Respiratory Exam Respiratory Exam: Decreased Breath Sounds, Rhonchi - Cardiovascular Exam Cardiovascular Exam: REGULAR RHYTHM, +S1 - GI/Abdominal Exam GI & Abdominal Exam: Soft. absent: Tenderness - Extremities Exam Extremities Exam: Normal Inspection. absent: Tenderness - Neurological Exam Neurological Exam: Awake, CN II-XII Intact - Skin Skin Exam: Dry, Warm Assessment and Plan (1) ESRD (end stage renal disease) on dialysis Status: Acute (2) Bronchitis Status: Acute (3) CHF (congestive heart failure) Status: Acute (4) CHF exacerbation Status: Acute (5) Multiple myeloma Status: Acute - Assessment and Plan (Free Text) Plan: increase UF goal with HD pulm meds monitor Hg post transfusion
[2018-06-13 15:32] VITALS: O2SAT 97
--- NOTE | 2018-06-13 17:46 | CP.PCM.PN ---
Subjective - Date & Time of Evaluation Date of Evaluation: 06/13/18 Time of Evaluation: 09:15 - Subjective Subjective: clinically same Objective - Vital Signs/Intake and Output Vital Signs (last 24 hours): Temp Pulse Resp BP Pulse Ox 98.4 F 80 18 144/99 H 97 06/13/18 15:00 06/13/18 15:00 06/13/18 15:00 06/13/18 17:20 06/13/18 15:00 Intake and Output: 06/13/18 06/13/18 06:59 18:59 Intake Total 410 Balance 410 - Medications Medications: Current Medications Acetaminophen (Tylenol 325mg Tab) 650 mg PO Q6 PRN PRN Reason: Fever >100.4 F Last Admin: 06/06/18 17:58 Dose: 650 mg Amiodarone HCl (Cordarone) 200 mg PO DAILY [facility] Last Admin: 06/13/18 09:34 Dose: 200 mg Apixaban (Eliquis) 2.5 mg PO BID [facility] Last Admin: 06/13/18 17:20 Dose: 2.5 mg Budesonide (Pulmicort Respules) 1 mg IH BID [facility] Last Admin: 06/10/18 18:39 Dose: 1 mg Calcium Acetate (Phoslo) 667 mg PO TID [facility] Last Admin: 06/13/18 17:20 Dose: 667 mg Docusate Sodium (Colace) 100 mg PO TID [facility] Last Admin: 06/13/18 17:20 Dose: 100 mg Epoetin Eddie (Procrit) 10,000 unit IV MWF [facility] Last Admin: 06/12/18 12:21 Dose: 10,000 unit Famotidine (Pepcid) 20 mg PO DAILY [facility] Last Admin: 06/13/18 09:34 Dose: 20 mg Ferrous Sulfate (Feosol) 325 mg PO DAILY [facility] Last Admin: 06/13/18 09:34 Dose: 325 mg Fluticasone/Vilanterol (Breo Ellipta 200-25 Mcg Inh) 1 puff INH DAILY [facility] Glipizide (Glucotrol) 10 mg PO ACBD [facility] Last Admin: 06/13/18 17:20 Dose: 10 mg Guaifenesin (Robitussin) 100 mg PO Q4H PRN PRN Reason: Cough Last Admin: 06/10/18 02:41 Dose: 100 mg Linezolid (Zyvox 600mg/300ml D5w) 600 mg in 300 mls @ 200 mls/hr IVPB Q12H [facility]; Protocol Last Admin: 06/13/18 17:22 Dose: 200 mls/hr Insulin Detemir (Levemir) 12 unit SC DAILY [facility] Last Admin: 06/13/18 09:35 Dose: Not Given Insulin Human Regular (Novolin R) 0 unit SC ACHS [facility]; Protocol Last Admin: 06/13/18 17:22 Dose: Not Given Ipratropium [place] (Atrovent) 0.5 mg IH RQ6 PRN PRN Reason: Shortness of Breath Last Admin: 06/13/18 07:30 Dose: 0.5 mg Levothyroxine Sodium (Synthroid) 75 mcg PO DAILY@0630 [facility] Last Admin: 06/13/18 05:31 Dose: 75 mcg Metoprolol Tartrate (Lopressor) 25 mg PO BID [facility] Last Admin: 06/13/18 17:20 Dose: 25 mg Promethazine HCl/Codeine (Phenergan/Codeine Oral Syrup) 5 ml PO Q6 PRN PRN Reason: Cough and congestion Last Admin: 06/13/18 14:01 Dose: 5 ml Rosuvastatin Calcium (Crestor) 5 mg PO HS [facility] Last Admin: 06/12/18 22:34 Dose: Not Given Tiotropium [place] (Spiriva) 18 mcg INH RQ24 [facility] Last Admin: 06/13/18 07:30 Dose: 18 mcg - Labs Labs: 06/12/18 09:30 06/12/18 09:30 Assessment and Plan - Assessment and Plan (Free Text) Plan: For discharge Continue all the medicines as ordered patient is on IV Zyvox Will speak to Dr. Willow Ambrosio Docusate sodium IV Levemir IV and subcu Levemir Hemodialysis as scheduled As ordered
--- NOTE | 2018-06-13 18:31 | CP.PCM.PN ---
Subjective - Date & Time of Evaluation Date of Evaluation: 06/13/18 Time of Evaluation: 18:31 Objective - Vital Signs/Intake and Output Vital Signs (last 24 hours): Temp Pulse Resp BP Pulse Ox 98.4 F 80 18 144/99 H 97 06/13/18 15:00 06/13/18 15:00 06/13/18 15:00 06/13/18 17:20 06/13/18 15:00 Intake and Output: 06/13/18 06/13/18 06:59 18:59 Intake Total 410 Balance 410 - Medications Medications: Current Medications Acetaminophen (Tylenol 325mg Tab) 650 mg PO Q6 PRN PRN Reason: Fever >100.4 F Last Admin: 06/06/18 17:58 Dose: 650 mg Amiodarone HCl (Cordarone) 200 mg PO DAILY [facility] Last Admin: 06/13/18 09:34 Dose: 200 mg Apixaban (Eliquis) 2.5 mg PO BID [facility] Last Admin: 06/13/18 17:20 Dose: 2.5 mg Budesonide (Pulmicort Respules) 1 mg IH BID [facility] Last Admin: 06/10/18 18:39 Dose: 1 mg Calcium Acetate (Phoslo) 667 mg PO TID [facility] Last Admin: 06/13/18 17:20 Dose: 667 mg Docusate Sodium (Colace) 100 mg PO TID [facility] Last Admin: 06/13/18 17:20 Dose: 100 mg Epoetin [place] (Procrit) 10,000 unit IV MWF [facility] Last Admin: 06/12/18 12:21 Dose: 10,000 unit Famotidine (Pepcid) 20 mg PO DAILY [facility] Last Admin: 06/13/18 09:34 Dose: 20 mg Ferrous Sulfate (Feosol) 325 mg PO DAILY [facility] Last Admin: 06/13/18 09:34 Dose: 325 mg Fluticasone/Vilanterol (Breo Ellipta 200-25 Mcg Inh) 1 puff INH DAILY [facility] Glipizide (Glucotrol) 10 mg PO ACBD [facility] Last Admin: 06/13/18 17:20 Dose: 10 mg Guaifenesin (Robitussin) 100 mg PO Q4H PRN PRN Reason: Cough Last Admin: 06/10/18 02:41 Dose: 100 mg Linezolid (Zyvox 600mg/300ml D5w) 600 mg in 300 mls @ 200 mls/hr IVPB Q12H [facility]; Protocol Last Admin: 06/13/18 17:22 Dose: 200 mls/hr Insulin Detemir (Levemir) 12 unit SC DAILY [facility] Last Admin: 06/13/18 09:35 Dose: Not Given Insulin Human Regular (Novolin R) 0 unit SC ACHS [facility]; Protocol Last Admin: 06/13/18 17:22 Dose: Not Given Ipratropium [place] (Atrovent) 0.5 mg IH RQ6 PRN PRN Reason: Shortness of Breath Last Admin: 06/13/18 07:30 Dose: 0.5 mg Levothyroxine Sodium (Synthroid) 75 mcg PO DAILY@0630 [facility] Last Admin: 06/13/18 05:31 Dose: 75 mcg Metoprolol Tartrate (Lopressor) 25 mg PO BID [facility] Last Admin: 06/13/18 17:20 Dose: 25 mg Promethazine HCl/Codeine (Phenergan/Codeine Oral Syrup) 5 ml PO Q6 PRN PRN Reason: Cough and congestion Last Admin: 06/13/18 14:01 Dose: 5 ml Rosuvastatin Calcium (Crestor) 5 mg PO HS MAIRBETH Last Admin: 06/12/18 22:34 Dose: Not Given Tiotropium Dana (Spiriva) 18 mcg INH RQ24 MARIBETH Last Admin: 06/13/18 07:30 Dose: 18 mcg - Labs Labs: 06/12/18 09:30 06/12/18 09:30 Assessment and Plan (1) Anemia Status: Acute (2) ESRD (end stage renal disease) on dialysis Status: Acute (3) COPD (chronic obstructive pulmonary disease) Status: Acute
[2018-06-14] MEDS: Linezolid 600 mg in D5W 300 ml 600 MG/300 ML BAG IVPB SCH (04:30)
[2018-06-14] MEDS: Levothyroxine 75 MCG TAB PO SCH (05:33)
[2018-06-14] MEDS: Promethazine/Cod 6.25mg-10mg/5ml Syr UD PO PRN (05:34)
[2018-06-14] MEDS: Ipratropium 0.02% Inhal Soln (0.5 mg/2.5 ml) UD IH PRN (07:58)
[2018-06-14] MEDS: Tiotropium 18 mcg Cap For Inhalation INH SCH (07:58)
[2018-06-14] MEDS: (Novolin R) Insulin Human Regular 100 units/ml vial SC SCH ×2 (07:59→13:19)
[2018-06-14 09:50] VITALS: RESP 22; TEMP 98
[2018-06-14 10:03] LABS: BASO # 0.1 K/uL (0.0-0.2); BASO % 0.9 % (0.0-2.0); EOS % 0.3 % (0.0-4.0); HEMOGLOBIN 8.5 g/dL (11.0-16.0); LYMPH # 1.1 K/uL (1.0-4.3); LYMPH % 10.9 % (20.0-40.0); MEAN CELL VOLUME 88.4 fL (81.0-99.0); MEAN CORPUSCULAR HEMOGLOBIN 27.9 pg (27.0-31.0); MEAN CORPUSCULAR HGB CONC 31.5 g/dL (33.0-37.0); MEAN PLATELET VOLUME 8.8 fL (7.2-11.7); MONO # 0.5 K/uL (0.0-0.8); MONO % 4.8 % (0.0-10.0); NEUT # 8.3 K/uL (1.8-7.0); NEUT % 83.1 % (50.0-75.0); RBC 3.07 Mil/uL (3.80-5.20); RED CELL DISTRIBUTION WIDTH 16.1 % (11.5-14.5)
[2018-06-14 10:55] LABS: ALB/GLOB RATIO 0.8 (1.0-2.1); ALBUMIN 2.7 g/dL (3.5-5.0)
[2018-06-14] MEDS: Epoetin Alfa 10,000 unit/ml Dialysis IV SCH (11:00)
--- NOTE | 2018-06-14 13:14 | CP.PCM.PN ---
Subjective - Date & Time of Evaluation Date of Evaluation: 06/14/18 Time of Evaluation: 13:12 - Subjective Subjective: Seen at dialysis UF 2500ml less wheezing, dyspnea feels much better Objective - Vital Signs/Intake and Output Vital Signs (last 24 hours): Temp Pulse Resp BP Pulse Ox 98 F 84 22 123/56 L 97 06/14/18 09:30 06/14/18 09:30 06/14/18 09:30 06/14/18 12:00 06/14/18 09:30 - Medications Medications: Current Medications Acetaminophen (Tylenol 325mg Tab) 650 mg PO Q6 PRN PRN Reason: Fever >100.4 F Last Admin: 06/06/18 17:58 Dose: 650 mg Amiodarone HCl (Cordarone) 200 mg PO DAILY [facility] Last Admin: 06/13/18 09:34 Dose: 200 mg Apixaban (Eliquis) 2.5 mg PO BID [facility] Last Admin: 06/13/18 17:20 Dose: 2.5 mg Budesonide (Pulmicort Respules) 1 mg IH BID [facility] Last Admin: 06/10/18 18:39 Dose: 1 mg Calcium Acetate (Phoslo) 667 mg PO TID [facility] Last Admin: 06/13/18 17:20 Dose: 667 mg Docusate Sodium (Colace) 100 mg PO TID [facility] Last Admin: 06/13/18 17:20 Dose: 100 mg Epoetin Eddie (Procrit) 10,000 unit IV MWF [facility] Last Admin: 06/14/18 11:00 Dose: 10,000 unit Famotidine (Pepcid) 20 mg PO DAILY [facility] Last Admin: 06/13/18 09:34 Dose: 20 mg Ferrous Sulfate (Feosol) 325 mg PO DAILY [facility] Last Admin: 06/13/18 09:34 Dose: 325 mg Fluticasone/Vilanterol (Breo Ellipta 200-25 Mcg Inh) 1 puff INH DAILY [facility] Glipizide (Glucotrol) 10 mg PO ACBD [facility] Last Admin: 06/14/18 07:57 Dose: 10 mg Guaifenesin (Robitussin) 100 mg PO Q4H PRN PRN Reason: Cough Last Admin: 06/10/18 02:41 Dose: 100 mg Linezolid (Zyvox 600mg/300ml D5w) 600 mg in 300 mls @ 200 mls/hr IVPB Q12H [facility]; Protocol Last Admin: 06/14/18 04:30 Dose: 200 mls/hr Insulin Detemir (Levemir) 12 unit SC DAILY [facility] Last Admin: 06/13/18 09:35 Dose: Not Given Insulin Human Regular (Novolin R) 0 unit SC ACHS [facility]; Protocol Last Admin: 06/14/18 07:59 Dose: Not Given Ipratropium [place] (Atrovent) 0.5 mg IH RQ6 PRN PRN Reason: Shortness of Breath Last Admin: 06/14/18 07:58 Dose: 0.5 mg Levothyroxine Sodium (Synthroid) 75 mcg PO DAILY@0630 [facility] Last Admin: 06/14/18 05:33 Dose: 75 mcg Metoprolol Tartrate (Lopressor) 25 mg PO BID [facility] Last Admin: 06/13/18 17:20 Dose: 25 mg Promethazine HCl/Codeine (Phenergan/Codeine Oral Syrup) 5 ml PO Q6 PRN PRN Reason: Cough and congestion Last Admin: 06/14/18 05:34 Dose: 5 ml Rosuvastatin Calcium (Crestor) 5 mg PO HS [facility] Last Admin: 06/13/18 21:57 Dose: 5 mg Tiotropium [place] (Spiriva) 18 mcg INH RQ24 [facility] Last Admin: 06/14/18 07:58 Dose: 18 mcg - Labs Labs: 06/14/18 09:55 06/14/18 09:55 - Constitutional Appears: No Acute Distress, Chronically Ill - Head Exam Head Exam: ATRAUMATIC, NORMAL INSPECTION - Eye Exam Eye Exam: EOMI, Normal appearance - Neck Exam Neck Exam: Normal Inspection. absent: Tenderness - Respiratory Exam Respiratory Exam: Rhonchi, NORMAL BREATHING PATTERN - Cardiovascular Exam Cardiovascular Exam: REGULAR RHYTHM, +S1 - GI/Abdominal Exam GI & Abdominal Exam: Soft. absent: Tenderness - Extremities Exam Extremities Exam: Normal Inspection. absent: Tenderness - Neurological Exam Neurological Exam: Awake, CN II-XII Intact - Skin Skin Exam: Dry, Warm Assessment and Plan (1) ESRD (end stage renal disease) on dialysis Status: Acute (2) Bronchitis Status: Acute (3) CHF (congestive heart failure) Status: Acute (4) CHF exacerbation Status: Acute (5) Multiple myeloma Status: Acute - Assessment and Plan (Free Text) Plan: Same aggressive UF with dialysis Same meds disposition as per medicine
[2018-06-14] MEDS: Budesonide 0.5 mg/2 ml Inhal Susp UD IH SCH (13:20)
[2018-06-14 13:44] VITALS: BP 132/87; PULSE 93
--- NOTE | 2018-06-14 14:06 | CP.PCM.PN ---
Subjective - Date & Time of Evaluation Date of Evaluation: 06/14/18 Time of Evaluation: 14:06 - Subjective Subjective: PATIENT SEEN AND EXAMINED AT THE BEDSIDE Objective - Vital Signs/Intake and Output Vital Signs (last 24 hours): Temp Pulse Resp BP Pulse Ox 98 F 93 H 22 165/73 H 97 06/14/18 12:30 06/14/18 12:30 06/14/18 12:30 06/14/18 13:18 06/14/18 12:30 - Medications Medications: Current Medications Acetaminophen (Tylenol 325mg Tab) 650 mg PO Q6 PRN PRN Reason: Fever >100.4 F Last Admin: 06/06/18 17:58 Dose: 650 mg Amiodarone HCl (Cordarone) 200 mg PO DAILY [facility] Last Admin: 06/14/18 13:17 Dose: 200 mg Apixaban (Eliquis) 2.5 mg PO BID [facility] Last Admin: 06/14/18 13:18 Dose: 2.5 mg Budesonide (Pulmicort Respules) 1 mg IH BID [facility] Last Admin: 06/14/18 13:20 Dose: Not Given Calcium Acetate (Phoslo) 667 mg PO TID [facility] Last Admin: 06/14/18 13:20 Dose: 667 mg Docusate Sodium (Colace) 100 mg PO TID [facility] Last Admin: 06/14/18 13:17 Dose: 100 mg Epoetin Eddie (Procrit) 10,000 unit IV MWF [facility] Last Admin: 06/14/18 11:00 Dose: 10,000 unit Famotidine (Pepcid) 20 mg PO DAILY [facility] Last Admin: 06/14/18 13:19 Dose: 20 mg Ferrous Sulfate (Feosol) 325 mg PO DAILY [facility] Last Admin: 06/14/18 13:18 Dose: 325 mg Fluticasone/Vilanterol (Breo Ellipta 200-25 Mcg Inh) 1 puff INH DAILY [facility] Last Admin: 06/14/18 13:17 Dose: Not Given Glipizide (Glucotrol) 10 mg PO ACBD [facility] Last Admin: 06/14/18 07:57 Dose: 10 mg Guaifenesin (Robitussin) 100 mg PO Q4H PRN PRN Reason: Cough Last Admin: 06/10/18 02:41 Dose: 100 mg Linezolid (Zyvox 600mg/300ml D5w) 600 mg in 300 mls @ 200 mls/hr IVPB Q12H [facility]; Protocol Last Admin: 06/14/18 04:30 Dose: 200 mls/hr Insulin Detemir (Levemir) 12 unit SC DAILY [facility] Last Admin: 06/13/18 09:35 Dose: Not Given Insulin Human Regular (Novolin R) 0 unit SC ACHS [facility]; Protocol Last Admin: 06/14/18 13:19 Dose: Not Given Ipratropium [place] (Atrovent) 0.5 mg IH RQ6 PRN PRN Reason: Shortness of Breath Last Admin: 06/14/18 07:58 Dose: 0.5 mg Levothyroxine Sodium (Synthroid) 75 mcg PO DAILY@0630 [facility] Last Admin: 06/14/18 05:33 Dose: 75 mcg Metoprolol Tartrate (Lopressor) 25 mg PO BID [facility] Last Admin: 06/14/18 13:18 Dose: 25 mg Promethazine HCl/Codeine (Phenergan/Codeine Oral Syrup) 5 ml PO Q6 PRN PRN Reason: Cough and congestion Last Admin: 06/14/18 05:34 Dose: 5 ml Rosuvastatin Calcium (Crestor) 5 mg PO HS [facility] Last Admin: 06/13/18 21:57 Dose: 5 mg Tiotropium [place] (Spiriva) 18 mcg INH RQ24 [facility] Last Admin: 06/14/18 07:58 Dose: 18 mcg - Labs Labs: 06/14/18 09:55 06/14/18 09:55 Assessment and Plan - Assessment and Plan (Free Text) Assessment: FOLLOW UP WITH DR Denise COX IN HIS OFFICE ------CALL FOR APPOINTMENT FOLLOW UP WITH DR KINCAID IN HIS OFFICE-------CALL FOR APPOINTMENT CONTINUE HOME MEDICATION NEW PRESCRIPTION GIVEN AMIODARONE 200 MG ONE TAB PO DAILY STOP TAKING AMIODARONE TWICE A DAY ACTIVITY TOLERATED HEMODIALYSIS SCHEDULE CALL DR Denise COX OR GO TO THE EMERGENCY ROOM IF SYMPTOM RETURN OR WORSENING
== END 2018-06-14 15:39 | disposition home or self-care (01) | DRG 193 ==
LOC: C.ER 21:12 → C.3T 23:43 → C.5S 05-31 21:20
PROVIDERS: ADMIT Internal Medicine Nephrology; ATTEND Internal Medicine Nephrology
PROC: 5A1D70Z Performance of Urinary Filtration, Intermittent, Less than 6 Hours Per Day (ICD-10-PCS; principal; 2018-05-31)
PROC: 5A1D70Z Performance of Urinary Filtration, Intermittent, Less than 6 Hours Per Day (ICD-10-PCS; 2018-06-03)
PROC: 5A1D70Z Performance of Urinary Filtration, Intermittent, Less than 6 Hours Per Day (ICD-10-PCS; 2018-06-05)
PROC: 5A1D70Z Performance of Urinary Filtration, Intermittent, Less than 6 Hours Per Day (ICD-10-PCS; 2018-06-07)
PROC: 5A1D70Z Performance of Urinary Filtration, Intermittent, Less than 6 Hours Per Day (ICD-10-PCS; 2018-06-10)
PROC: 5A1D70Z Performance of Urinary Filtration, Intermittent, Less than 6 Hours Per Day (ICD-10-PCS; 2018-06-12)
PROC: 5A1D70Z Performance of Urinary Filtration, Intermittent, Less than 6 Hours Per Day (ICD-10-PCS; 2018-06-14)
DX: J11.00 Influenza due to unidentified influenza virus with unspecified type of pneumonia (principal); N18.6 End stage renal disease; I13.2 Hypertensive heart and chronic kidney disease with heart failure and with stage 5 chronic kidney disease, or end stage renal disease; I50.32 Chronic diastolic (congestive) heart failure; C90.00 Multiple myeloma not having achieved remission; J44.0 Chronic obstructive pulmonary disease with (acute) lower respiratory infection; J98.11 Atelectasis; N39.0 Urinary tract infection, site not specified; D63.1 Anemia in chronic kidney disease; Z99.2 Dependence on renal dialysis; Z87.891 Personal history of nicotine dependence; E03.9 Hypothyroidism, unspecified; E11.22 Type 2 diabetes mellitus with diabetic chronic kidney disease; F32.9 Major depressive disorder, single episode, unspecified; I27.20 Pulmonary hypertension, unspecified; I48.0 Paroxysmal atrial fibrillation; Z16.21 Resistance to vancomycin

== ENCOUNTER 2018-06-25 13:57 | Inpatient (IN) | payer MEDICARE ==
[2018-06-25 13:57] VITALS: BMI 29.7
--- NOTE | 2018-06-25 14:29 | C.PDOC ---
History Of Present Illness 83 y/o female with a PMHx of COPD, CHF, ESRD on dialysis, diabetes, afib, anemia, hypothyroidism, and multiple myeloma, presents for evaluation of elevated blood sugar. Patient states her sugar was over 400 today, prompting her to come to the ED. Otherwise patient states she feels fine. She reports compliance with all medications. On arrival patient is visibly tachypneic. She admits to feeling short of breath for the last couple of weeks, states she had an asthma flare up that has worsened. She reports occasional leg swelling as well, but currently the swelling has improved. No fevers or chills. Patient is on home oxygen, 3L at night. Her last hemodialysis was yesterday. Of note patient was recently admitted and discharged in May 2018. Time Seen by Provider: 06/25/18 14:09 Chief Complaint (Nursing): High Blood Sugar History Per: Patient History/Exam Limitations: no limitations Onset/Duration Of Symptoms: Hrs Current Symptoms Are (Timing): Still Present Past Medical History Reviewed: Historical Data, Nursing Documentation, Vital Signs Vital Signs: Last Vital Signs Temp 98.3 F 06/25/18 14:18 Pulse 83 06/25/18 14:18 Resp 20 06/25/18 14:18 BP 118/44 L 06/25/18 14:18 Pulse Ox 99 06/25/18 14:18 - Medical History PMH: Anemia, Arthritis, Atrial Fibrillation, Cardia Arrhythmia, CHF, COPD, HTN, Hypercholesterolemia, Hyperlipidemia, Hypothyroidism, End Stage Renal Disease, Chronic Kidney Disease Surgical History: Endoscopy - [facility] Procedures (05/29/18) EXCISION OF STOMACH, ENDO, DIAGN (06/28/16) EXTRACTION OF ILIAC BONE MARROW, PERC APPROACH, DIAGN (12/25/16) FLUOROSCOPY OF SUP VENA CAVA USING L OSM CONTRAST, GUIDANCE (12/25/16) INSERT VAD RESERVOIR IN CHEST SUBCU/FASCIA, OPEN (12/25/16) INSERTION OF INFUSION DEV INTO SUP VENA CAVA, PERC APPROACH (12/25/16) INSPECTION OF LOWER INTESTINAL TRACT, ENDO (06/28/16) INSPECTION OF UPPER INTESTINAL TRACT, ENDO (09/25/16) INTRODUCE OTH ANTINEOPLASTIC IN CENTRAL VEIN, PERC (12/25/16) PERFORMANCE OF URINARY FILTRATION, MULTIPLE (12/25/16) TAOIST OF CARDIAC RHYTHM, SINGLE (05/01/18) TRANSFUSE NONAUT RED BLOOD CELLS IN PERIPH VEIN, PERC (12/25/16) Family History: States: No Known Family Hx - Social History Hx Tobacco Use: No Hx Alcohol Use: No Hx Substance Use: No - Immunization History Hx Tetanus Toxoid Vaccination: No Hx Influenza Vaccination: Yes Hx Pneumococcal Vaccination: Yes Review Of Systems Except As Marked, All Systems Reviewed And Found Negative. Constitutional: Positive for: Other (Hyperglycemia). Negative for: Fever, Chills Cardiovascular: Negative for: Chest Pain Respiratory: Positive for: Shortness of Breath, SOB with Excertion Gastrointestinal: Negative for: Vomiting, Abdominal Pain, Diarrhea Musculoskeletal: Positive for: Other (Bilateral lower extremity swelling). Negative for: Back Pain Neurological: Negative for: Weakness, Numbness, Headache, Dizziness Physical Exam - Physical Exam Appears: Non-toxic, In Acute Distress (moderate respiratory distress), Other (Speaking in 4-5 word sentences) Skin: Warm, Dry, No Diaphoretic Head: Atraumatic, Normacephalic Eye(s): bilateral: Normal Inspection, PERRL, EOMI Neck: Normal ROM Chest: Symmetrical Cardiovascular: Rhythm Regular, No Murmur Respiratory: Rhonchi (diffusely), Other (+retractions noted, patient appears tachypneic) Gastrointestinal/Abdominal: Soft, No Tenderness, No Distention Extremity: Normal ROM, No Tenderness, No Deformity, Swelling (2+ edema to bilateral LE) Pulses: Left Dorsalis Pedis: Normal, Right Dorsalis Pedis: Normal Neurological/Psych: Oriented x3, Normal Speech ED Course And Treatment - Laboratory Results Result Diagrams: 06/25/18 15:20 06/25/18 15:20 ECG: Interpreted By Me ECG Rhythm: Sinus Rhythm ECG Interpretation: Normal Rate From EC O2 Sat by Pulse Oximetry: 99 (NC) Pulse Ox Interpretation: Normal - Radiology CXR: Interpreted by Me (Increased vascular congestion, compared to prior imaging 06/03) Progress - Re-Evaluation Re-evaluation Note: 06/25/18 16:33 STABLE ON VAPOTHERM. D/W DR Denise COX WILL ADMIT - Data Reviewed Data Reviewed: Lab, Diagnostic imaging, EKG, Old records Medical Decision Making Medical Decision Making: Initial Impression: SOB, Hyperglycemia Plan: Patient assessed and examined. Orders placed in for blood work, VBG, EKG, and CXR. Disposition Counseled Patient/Family Regarding: Studies Performed, Diagnosis - Disposition Disposition: HOSPITALIZED Disposition Time: 16:33 Condition: STABLE Forms: [facility] (Thai) - POA Present On Arrival: Poor Glycemic Control - Clinical Impression Clinical Impression: Dyspnea, CHF exacerbation, ESRD (end stage renal disease) on dialysis, Uncontrolled diabetes mellitus - Scribe Statement The provider has reviewed the documentation as recorded by the Jaida Miner Provider Attestation: All medical record entries made by the Jaida were at my direction and personally dictated by me. I have reviewed the chart and agree that the record accurately reflects my personal performance of the history, physical exam, medi antonia decision making, and the department course for this patient. I have also personally directed, reviewed, and agree with the discharge instructions and disposition.
[2018-06-25 15:03] LABS: VENOUS BLOOD GAS BASE EXCESS -2.9 mmol/L (0.0-2.0); VENOUS BLOOD GAS PCO2 33 mmHg (40-60); VENOUS BLOOD GAS PO2 41 mm/Hg (30-55); VENOUS BLOOD PH 7.41 (7.32-7.43)
[2018-06-25 15:31] LABS: BASO % 0.2 % (0.0-2.0); HEMOGLOBIN 7.9 g/dL (11.0-16.0); LYMPH # 0.9 K/uL (1.0-4.3); LYMPH % 6.4 % (20.0-40.0); MEAN CORPUSCULAR HGB CONC 30.3 g/dL (33.0-37.0); MEAN PLATELET VOLUME 10.6 fL (7.2-11.7); MONO # 1.3 K/uL (0.0-0.8); NEUT # 12.1 K/uL (1.8-7.0); NEUT % 84.4 % (50.0-75.0); PLATELET COUNT 248 K/uL (130-400); RBC 2.94 Mil/uL (3.80-5.20); RED CELL DISTRIBUTION WIDTH 17.1 % (11.5-14.5); WHITE BLOOD COUNT 14.4 K/uL (4.8-10.8)
--- NOTE | 2018-06-25 15:51 | RAD ---
Date of service: 06/25/2018 PROCEDURE: CHEST RADIOGRAPH, 1 VIEW HISTORY: SOB COMPARISON: 06/03/2018 FINDINGS: LUNGS: Interval increased opacity perceived left inferolateral hemithorax-above this slight rib deformity compatible with old healed rib fractures noted. Although summation of soft tissues is 1 consideration this patient's large body habitus-this does appear to be an interval change and some interval pleural parenchymal pathology here needs to be considered. Some loculated fluid and/or interval pleural base pathology here is a consideration. This appearance is new since the recent 06/03/2018 study. Shallow lung volumes slightly worse now than before PLEURA: No pneumothorax seen. Left inferolateral hemithoracic pleural parenchymal opacity-an interval change as referenced above. CARDIOVASCULAR: There is presence of aortic atherosclerotic calcification on x-ray. Mild cardiomegaly suspect. Pulmonary venous congestion mild-moderate also suggested. This appears slightly increased since prior exam. Central venous catheter left-sided tip at cavoatrial junction. Similar-appearing OSSEOUS STRUCTURES: Thoracic spondylosis. Bilateral shoulder arthrosis. VISUALIZED UPPER ABDOMEN: Normal. OTHER FINDINGS: None. IMPRESSION: Shallow lung volumes and large body habitus impeding optimal evaluation. Nevertheless the concern for an interval left inferolateral pleural parenchymal pathology process needs to be considered. Some findings are mention considered above. For this consider CT of the chest with IV contrast enhancement for clarification. Two. Shallow lung volumes, mild cardiomegaly suspect and mild-moderate pulmonary venous congestion-pulmonary venous congestion probably slightly worse than before. Comments: Study marked for PA review .
[2018-06-25 15:52] LABS: ANISOCYTOSIS SLIGHT; LYMPHOCYTE 8 % (20-40); MONOCYTE 6 % (0-10); NEUTROPHIL 86 % (50-75); PLATELET ESTIMATE NORMAL (NORMAL); POIKILOCYTOSIS SLIGHT; TOTAL CELLS COUNTED 100
[2018-06-25 15:53] LABS: ALB/GLOB RATIO 0.9 (1.0-2.1); ALBUMIN 3.1 g/dL (3.5-5.0); CALCIUM 8.3 mg/dl (8.6-10.4); HYPOCHROMIC SLIGHT; TARGET CELLS SLIGHT
[2018-06-25 15:54] LABS: LARGE PLATELETS PRESENT
[2018-06-25] MEDS ORDERED: (Novolin R) Insulin Human Regular 100 units/ml vial IV STA (16:17)
[2018-06-25] MEDS ORDERED: (Novolin R) Insulin Human Regular 100 units/ml vial ONE (16:25)
[2018-06-25] MEDS ORDERED: (Novolog) Insulin Aspart, Recombinant 100 u/ml 10 ml vial SC SCH (23:00)
--- NOTE | 2018-06-25 23:03 | CP.PCM.HP ---
History of Present Illness - History of Present Illness History of Present Illness: 83-year-old female with past medical history of COPD, CHF, ESRD on dialysis, A. fib, anemia, diabetes, hypothyroidism, and multiple myeloma presents to ED for evaluation of elevated blood sugar. Per patient her blood sugar was above 400 on day of arrival to ED. At present patient offers no medical complaints reports compliance with all home medications. On presentation patient was noted to be tachypneic. Upon further questioning patient admitted to shortness of breath ongoing for the past few weeks which has progressively worsened. Patient reports leg swelling at times which has since improved. Patient reports that she is on home oxygen use 3 L nasal cannula at night. Patient on hemodialysis schedule with last hemodialysis session on day prior to arrival. Patient was recently admitted and discharged in May 2018. Patient denies fevers, chills, cough, dizziness, chest pain, nausea/vomiting/diarrhea, abdominal pain, dysuria. Present on Admission - Present on Admission Any Indicators Present on Admission: No Past Patient History - Infectious Disease Hx of Infectious Diseases: None - Past Medical History & Family History Past Medical History?: Yes - Past Social History Smoking Status: Former Smoker - CARDIAC Hx Atrial Fibrillation: Yes Hx Cardia Arrhythmia: Yes Hx Congestive Heart Failure: Yes Hx Hypercholesterolemia: Yes Hx Hypertension: Yes - PULMONARY Hx Chronic Obstructive Pulmonary Disease (COPD): Yes - NEUROLOGICAL Hx Neurological Disorder: No - HEENT Hx HEENT Problems: Yes Hx Cataracts: Yes (bilateral) - RENAL Hx Chronic Kidney Disease: Yes - ENDOCRINE/METABOLIC Hx Hypothyroidism: Yes - HEMATOLOGICAL/ONCOLOGICAL Hx Anemia: Yes - INTEGUMENTARY Hx Dermatological Problems: No - MUSCULOSKELETAL/RHEUMATOLOGICAL Hx Arthritis: Yes - GASTROINTESTINAL Hx Gastrointestinal Disorders: Yes Hx Hemorrhoids: Yes - GENITOURINARY/GYNECOLOGICAL Hx Genitourinary Disorders: No - PSYCHIATRIC Hx Substance Use: No - SURGICAL HISTORY Hx Surgeries: Yes Hx Arteriovenous Shunt: Yes (LEFT ARM AV ,permacath) Hx Vascular Access Device: Yes (perma cath elaina cath) - ANESTHESIA Hx Anesthesia: Yes Hx Anesthesia Reactions: No Hx Malignant Hyperthermia: No Meds Allergies/Adverse Reactions: Allergies Allergy/AdvReac Type Severity Reaction Status Date / Time No Known Allergies Allergy Verified 06/25/18 14:25 Physical Exam - Constitutional Appears: Well - Head Exam Head Exam: ATRAUMATIC, NORMAL INSPECTION, NORMOCEPHALIC - Eye Exam Eye Exam: EOMI, Normal appearance, PERRL Pupil Exam: NORMAL ACCOMODATION, PERRL - ENT Exam ENT Exam: Mucous Membranes Moist, Normal Exam - Neck Exam Neck exam: Positive for: Normal Inspection - Respiratory Exam Respiratory Exam: Decreased Breath Sounds - Cardiovascular Exam Cardiovascular Exam: REGULAR RHYTHM, +S1, +S2 - GI/Abdominal Exam GI & Abdominal Exam: Diminished Bowel Sounds, Soft - Rectal Exam Rectal Exam: Deferred - Neurological Exam Neurological exam: Oriented x3 Results - Vital Signs Recent Vital Signs: Last Vital Signs Temp 97.8 F 06/25/18 22:37 Pulse 99 H 06/25/18 22:50 Resp 20 06/25/18 22:37 BP 107/77 06/25/18 22:37 Pulse Ox 100 06/25/18 22:37 - Labs Result Diagrams: 07/21/18 06:13 07/21/18 06:13 Labs: Laboratory Results - last 24 hr 06/25/18 06/25/18 06/25/18 14:14 14:55 15:20 WBC 14.4 H RBC 2.94 L Hgb 7.9 L Hct 26.1 L MCV 89.0 MCH 27.0 MCHC 30.3 L RDW 17.1 H Plt Count 248 MPV 10.6 Neut % (Auto) 84.4 H Lymph % (Auto) 6.4 L [place] % (Auto) 9.0 Eos % (Auto) 0.0 Baso % (Auto) 0.2 Neut # (Auto) 12.1 H Lymph # (Auto) 0.9 L [place] # (Auto) 1.3 H Eos # (Auto) 0.0 Baso # (Auto) 0.0 Neutrophils % (Manual) 86 H Lymphocytes % (Manual) 8 L Monocytes % (Manual) 6 Platelet Estimate Normal Large Platelets Present Hypochromasia (manual) Slight Poikilocytosis (manual Slight Anisocytosis (manual) Slight Target Cells Slight pO2 41 VBG pH 7.41 VBG pCO2 33 L VBG HCO3 22.1 VBG Total CO2 21.9 L VBG O2 Sat (Calc) 82.0 H VBG Base Excess -2.9 L VBG Potassium 2.4 L* Sodium 146.0 Chloride 117.0 H Glucose 283 H Lactate 1.2 Crit Value Called To stacy Angulo rn Crit Value Called By Gisela tamez,rt Crit Value Read Back Y Blood Gas Notified Time 1502 Potassium Carbon Dioxide Anion Gap BUN Creatinine Est GFR ( Amer) Est GFR (Non-Af Amer) POC Glucose (mg/dL) > 500 H* Random Glucose Calcium Total Bilirubin AST ALT Alkaline Phosphatase NT-Pro-B Natriuret Pep Total Protein Albumin Globulin Albumin/Globulin Ratio Venous Blood Potassium 2.4 L* 06/25/18 06/25/18 06/25/18 15:20 18:11 20:13 WBC RBC Hgb Hct MCV MCH MCHC RDW Plt Count MPV Neut % (Auto) Lymph % (Auto) [place] % (Auto) Eos % (Auto) Baso % (Auto) Neut # (Auto) Lymph # (Auto) [place] # (Auto) Eos # (Auto) Baso # (Auto) Neutrophils % (Manual) Lymphocytes % (Manual) Monocytes % (Manual) Platelet Estimate Large Platelets Hypochromasia (manual) Poikilocytosis (manual Anisocytosis (manual) Target Cells pO2 VBG pH VBG pCO2 VBG HCO3 VBG Total CO2 VBG O2 Sat (Calc) VBG Base Excess VBG Potassium Sodium 134 Chloride 93 L Glucose Lactate Crit Value Called To Crit Value Called By Crit Value Read Back Blood Gas Notified Time Potassium 4.1 Carbon Dioxide 32 H Anion Gap 13 BUN 47 H Creatinine 3.3 H Est GFR ( Amer) 16 Est GFR (Non-Af Amer) 13 POC Glucose (mg/dL) 175 H 164 H Random Glucose 478 H* D Calcium 8.3 L Total Bilirubin 0.7 AST 26 ALT 36 Alkaline Phosphatase 73 NT-Pro-B Natriuret Pep 72335 H Total Protein 6.6 Albumin 3.1 L Globulin 3.5 Albumin/Globulin Ratio 0.9 L Venous Blood Potassium Assessment & Plan (1) CHF exacerbation Status: Acute (2) Dyspnea Status: Acute (3) ESRD (end stage renal disease) on dialysis Status: Acute (4) Uncontrolled diabetes mellitus Status: Acute (5) MARIA EUGENIA (acute kidney injury) Status: Acute (6) Abdominal pain Status: Acute (7) Acute bronchitis Status: Acute (8) Acute kidney injury Status: Acute (9) Acute kidney injury superimposed on chronic kidney disease Status: Acute (10) Acute respiratory failure Status: Acute (11) Anemia Status: Acute (12) Anemia of chronic disease Status: Acute (13) Atrial fibrillation with controlled ventricular response Status: Acute (14) Back pain of thoracolumbar region Status: Acute (15) Bronchitis Status: Acute (16) Bronchitis Status: Acute (17) CHF (congestive heart failure) Status: Acute (18) CHF (congestive heart failure) Status: Acute (19) CKD (chronic kidney disease) stage 3, GFR 30-59 ml/min Status: Acute (20) COPD (chronic obstructive pulmonary disease) Status: Acute (21) COPD exacerbation Status: Acute (22) COPD exacerbation Status: Acute (23) Chest pain Status: Acute (24) ESR raised Status: Acute (25) ESRD (end stage renal disease) Status: Acute (26) Fluid overload Status: Acute (27) Fluid overload, unspecified Status: Acute (28) Gastritis Status: Acute (29) Hepatitis Status: Acute (30) History of asthma Status: Acute (31) History of atrial fibrillation Status: Acute (32) History of back pain Status: Acute (33) History of gastroesophageal reflux (GERD) Status: Acute (34) Hypercalcemia Status: Acute (35) Hyperlipemia Status: Acute (36) Influenza Status: Acute (37) Leucocytosis Status: Acute (38) Lower extremity pain Status: Acute (39) Multiple myeloma Status: Acute (40) Multiple myeloma Status: Acute (41) Myeloma Status: Acute (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 (43) Occult gastrointestinal hemorrhage Status: Acute (44) Paroxysmal A-fib Status: Acute (45) Pneumonia Status: Acute (46) Prophylactic measure Status: Acute (47) Pulmonary hypertension Status: Acute (48) Pulmonary hypertension Status: Acute (49) Renal failure Status: Acute (50) Respiratory tract infection Status: Acute (51) Streptococcus pneumoniae Status: Acute (52) Symptomatic anemia Status: Acute (53) Vertigo Status: Acute (54) Worsening renal function Status: Acute (55) Anemia Status: Chronic (56) Asthma Status: Chronic (57) Atrial fibrillation Status: Chronic (58) Chronic diastolic (congestive) heart failure Status: Chronic (59) Diabetes Status: Chronic (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 - Assessment and Plan (Free Text) Plan: ekg nsr rate controlled cxr increasd vascular congestion compared to 05/2017 labs and meds reviewed pulm consult nephro consult hd per renal renal diet resp support prn spiriva glipizide levemir dvt/gi ppx - scds/pepcid riana other meds as ordered pt/ot case discussed w/staff
[2018-06-25] MEDS: Albuterol-Ipratrop 3 mg / 0.5 (3 ml) UD IH SCH (23:20)
[2018-06-26] MEDS: Insulin Detemir 100 units/ml Vial (Levemir) SC SCH ×3 (00:24→22:00)
[2018-06-26] MEDS: Home Med 1 UNIT (Meropenem [Merrem Iv] 500 MG) IVPB SCH ×2 (00:25→11:40)
[2018-06-26] MEDS: Albuterol-Ipratrop 3 mg / 0.5 (3 ml) UD IH SCH ×4 (01:16→19:40)
[2018-06-26] MEDS: Levothyroxine 150 MCG TAB PO SCH (06:05)
[2018-06-26] MEDS ORDERED: EPOETIN ALFA 10,000 UNIT/ML ML SC SCH (06:45)
--- NOTE | 2018-06-26 07:30 | CP.PCM.CON ---
History of Present Illness - History of Present Illness History of Present Illness: 83 yo female, ESRD, COPD, MM, afib, DM, presents with blood sugars over 400. Has been on oral medicine for diabetes. Recent admit to for influenza, UTI, COPD exacerbation. Not on steroids at home. No change in diet. Denies blurry vision or decreased thirst. No fever. Xray also notable for pulmonary vascular congestion in ER. Pt due for HD today. Last treatment on Sunday. Has a Left ANJALI. Review of Systems - Constitutional Constitutional: Fatigue, Malaise - EENT Eyes: absent: Blurred Vision, Change in Vision Nose/Mouth/Throat: absent: Epistaxis, Nasal Congestion - Cardiovascular Cardiovascular: absent: Chest Pain, Orthopnea - Respiratory Respiratory: Cough, Dyspnea on Exertion, Chest Congestion - Gastrointestinal Gastrointestinal: absent: Abdominal Pain, Cramping - Genitourinary Additional comments: decreased urine output - Neurological Neurological: absent: Abnormal Gait, Confusion - Psychiatric Psychiatric: absent: Anxiety, Confusion Past Patient History - Infectious Disease Hx of Infectious Diseases: None - Past Medical History & Family History Past Medical History?: Yes - Past Social History Smoking Status: Former Smoker - CARDIAC Hx Cardiac Disorders: Yes Hx Atrial Fibrillation: Yes Hx Cardia Arrhythmia: Yes Hx Congestive Heart Failure: Yes Hx Hypercholesterolemia: Yes Hx Hypertension: Yes - PULMONARY Hx Respiratory Disorders: Yes Hx Chronic Obstructive Pulmonary Disease (COPD): Yes - NEUROLOGICAL Hx Neurological Disorder: No - HEENT Hx HEENT Problems: Yes Hx Cataracts: Yes (bilateral) - RENAL Hx Chronic Kidney Disease: Yes Type of Dialysis Access: HD Date of Last Dialysis Treatment: 06/24/18 Hx Kidney Stones: No Hx Neurogenic Bladder: No Hx Pyelonephritis: No Hx Renal (Kidney) Cancer: No Hx Renal Failure: Yes Other/Comment: HD M-W-F @ [facility] [place] - ENDOCRINE/METABOLIC Hx Endocrine Disorders: Yes Hx Diabetes Mellitus Type 1: Yes Hx Diabetes Mellitus Type 2: Yes Hx Hypothyroidism: Yes - HEMATOLOGICAL/ONCOLOGICAL Hx Blood Disorders: Yes Hx Anemia: Yes Other/Comment: Multiple Myeloma - INTEGUMENTARY Hx Dermatological Problems: No Hx Basil Cell: No Hx Padilla: No Hx Cellulitis: No Hx Eczema: No Hx Melanoma: No Hx Squamous Cell: No - MUSCULOSKELETAL/RHEUMATOLOGICAL Hx Musculoskeletal Disorders: Yes Hx Arthritis: Yes Hx Falls: No - GASTROINTESTINAL Hx Gastrointestinal Disorders: Yes Hx Hemorrhoids: Yes - GENITOURINARY/GYNECOLOGICAL Hx Genitourinary Disorders: No - PSYCHIATRIC Hx Psychophysiologic Disorder: No Hx Substance Use: No - SURGICAL HISTORY Hx Surgeries: Yes Hx Arteriovenous Shunt: Yes (LEFT ARM AV ,permacath) Hx Vascular Access Device: Yes (perma cath elaina cath) - ANESTHESIA Hx Anesthesia: Yes Hx Anesthesia Reactions: No Hx Malignant Hyperthermia: No Has any member of the family had a problem w/ anesthesia?: No Meds Allergies/Adverse Reactions: Allergies Allergy/AdvReac Type Severity Reaction Status Date / Time No Known Allergies Allergy Verified 06/25/18 14:25 - Medications Medications: Current Medications Albuterol/Ipratropium (Duoneb 3 Mg/0.5 Mg (3 Ml) Ud) 3 ml IH RQ6 [facility] Last Admin: 06/26/18 01:16 Dose: 3 ml Amiodarone HCl (Cordarone) 200 mg PO DAILY [facility] Apixaban (Eliquis) 2.5 mg PO BID [facility] Last Admin: 06/26/18 00:12 Dose: 2.5 mg Budesonide (Pulmicort Respules) 1 mg IH RBID [facility] Calcium Acetate (Phoslo) 667 mg PO TID [facility] Epoetin Eddie (Procrit) 10,000 unit SC ONCE [facility] Famotidine (Pepcid) 20 mg PO DAILY [facility] Ferrous Sulfate (Feosol) 325 mg PO DAILY [facility] Fluticasone/Vilanterol (Breo Ellipta 200-25 Mcg Inh) 1 puff INH RQD [facility] Glipizide (Glucotrol) 10 mg PO ACBD [facility] Home Med (Meropenem [Merrem Iv]) 500 mg IVPB Q12H [facility] Last Admin: 06/26/18 00:25 Dose: 500 mg Insulin Aspart (Novolog) 10 unit SC ONCE [facility] Insulin Aspart (Novolog Mix 70/30 (70/30 Units/Ml)) 20 units SC ACBD [facility] Insulin Aspart (Novolog) 0 unit SC ACHS [facility]; Protocol Insulin Detemir (Levemir) 12 unit SC Q12H [facility] Last Admin: 06/26/18 00:24 Dose: 12 units Levothyroxine Sodium (Synthroid) 150 mcg PO DAILY@0630 [facility] Last Admin: 06/26/18 06:05 Dose: 150 mcg Metoprolol Tartrate (Lopressor) 25 mg PO BID [facility] Rosuvastatin Calcium (Crestor) 5 mg PO HS [facility] Last Admin: 06/26/18 00:12 Dose: 5 mg Tiotropium [place] (Spiriva) 18 mcg INH RQ24 [facility] Physical Exam - Constitutional Appears: Non-toxic, No Acute Distress - Head Exam Head Exam: ATRAUMATIC, NORMAL INSPECTION - Eye Exam Eye Exam: EOMI, Normal appearance - ENT Exam ENT Exam: Mucous Membranes Moist - Neck Exam Neck exam: Positive for: Full Rom. Negative for: Lymphadenopathy - Respiratory Exam Respiratory Exam: Rhonchi. absent: Wheezes - Cardiovascular Exam Cardiovascular Exam: REGULAR RHYTHM. absent: Rubs - GI/Abdominal Exam GI & Abdominal Exam: Normal Bowel Sounds, Soft. absent: Tenderness - Extremities Exam Extremities exam: Negative for: pedal edema - Neurological Exam Neurological exam: Alert, Oriented x3 - Psychiatric Exam Psychiatric exam: Normal Affect Results - Vital Signs Recent Vital Signs: Last Vital Signs Temp 98.8 F 06/26/18 05:00 Pulse 88 06/26/18 05:00 Resp 20 06/26/18 05:00 BP 109/62 06/26/18 05:00 Pulse Ox 97 06/26/18 05:00 - Labs Result Diagrams: 06/25/18 15:20 06/25/18 15:20 Labs: Laboratory Results - last 24 hr 06/25/18 06/25/18 06/25/18 14:14 14:55 15:20 WBC 14.4 H RBC 2.94 L Hgb 7.9 L Hct 26.1 L MCV 89.0 MCH 27.0 MCHC 30.3 L RDW 17.1 H Plt Count 248 MPV 10.6 Neut % (Auto) 84.4 H Lymph % (Auto) 6.4 L Morrison % (Auto) 9.0 Eos % (Auto) 0.0 Baso % (Auto) 0.2 Neut # (Auto) 12.1 H Lymph # (Auto) 0.9 L Morrison # (Auto) 1.3 H Eos # (Auto) 0.0 Baso # (Auto) 0.0 Neutrophils % (Manual) 86 H Lymphocytes % (Manual) 8 L Monocytes % (Manual) 6 Platelet Estimate Normal Large Platelets Present Hypochromasia (manual) Slight Poikilocytosis (manual Slight Anisocytosis (manual) Slight Target Cells Slight pO2 41 VBG pH 7.41 VBG pCO2 33 L VBG HCO3 22.1 VBG Total CO2 21.9 L VBG O2 Sat (Calc) 82.0 H VBG Base Excess -2.9 L VBG Potassium 2.4 L* Sodium 146.0 Chloride 117.0 H Glucose 283 H Lactate 1.2 Crit Value Called To stacy Angulo,rn Crit Value Called By Gisela tamez,rt Crit Value Read Back Y Blood Gas Notified Time 1502 Potassium Carbon Dioxide Anion Gap BUN Creatinine Est GFR ( Amer) Est GFR (Non-Af Amer) POC Glucose (mg/dL) > 500 H* Random Glucose Calcium Total Bilirubin AST ALT Alkaline Phosphatase NT-Pro-B Natriuret Pep Total Protein Albumin Globulin Albumin/Globulin Ratio Venous Blood Potassium 2.4 L* 06/25/18 06/25/18 06/25/18 15:20 18:11 20:13 WBC RBC Hgb Hct MCV MCH MCHC RDW Plt Count MPV Neut % (Auto) Lymph % (Auto) Morrison % (Auto) Eos % (Auto) Baso % (Auto) Neut # (Auto) Lymph # (Auto) Morrison # (Auto) Eos # (Auto) Baso # (Auto) Neutrophils % (Manual) Lymphocytes % (Manual) Monocytes % (Manual) Platelet Estimate Large Platelets Hypochromasia (manual) Poikilocytosis (manual Anisocytosis (manual) Target Cells pO2 VBG pH VBG pCO2 VBG HCO3 VBG Total CO2 VBG O2 Sat (Calc) VBG Base Excess VBG Potassium Sodium 134 Chloride 93 L Glucose Lactate Crit Value Called To Crit Value Called By Crit Value Read Back Blood Gas Notified Time Potassium 4.1 Carbon Dioxide 32 H Anion Gap 13 BUN 47 H Creatinine 3.3 H Est GFR ( Amer) 16 Est GFR (Non-Af Amer) 13 POC Glucose (mg/dL) 175 H 164 H Random Glucose 478 H* D Calcium 8.3 L Total Bilirubin 0.7 AST 26 ALT 36 Alkaline Phosphatase 73 NT-Pro-B Natriuret Pep 16570 H Total Protein 6.6 Albumin 3.1 L Globulin 3.5 Albumin/Globulin Ratio 0.9 L Venous Blood Potassium 06/26/18 00:05 WBC RBC Hgb Hct MCV MCH MCHC RDW Plt Count MPV Neut % (Auto) Lymph % (Auto) Morrison % (Auto) Eos % (Auto) Baso % (Auto) Neut # (Auto) Lymph # (Auto) Morrison # (Auto) Eos # (Auto) Baso # (Auto) Neutrophils % (Manual) Lymphocytes % (Manual) Monocytes % (Manual) Platelet Estimate Large Platelets Hypochromasia (manual) Poikilocytosis (manual Anisocytosis (manual) Target Cells pO2 VBG pH VBG pCO2 VBG HCO3 VBG Total CO2 VBG O2 Sat (Calc) VBG Base Excess VBG Potassium Sodium Chloride Glucose Lactate Crit Value Called To Crit Value Called By Crit Value Read Back Blood Gas Notified Time Potassium Carbon Dioxide Anion Gap BUN Creatinine Est GFR ( Amer) Est GFR (Non-Af Amer) POC Glucose (mg/dL) 278 H Random Glucose Calcium Total Bilirubin AST ALT Alkaline Phosphatase NT-Pro-B Natriuret Pep Total Protein Albumin Globulin Albumin/Globulin Ratio Venous Blood Potassium Assessment & Plan - Assessment and Plan (Free Text) Assessment: esrd, fluid overload on xray, for HD today, increase UF anemia, epogen on HD, consider Heme-Onc reevaluation copd, pulmonary toilet hyperglycemia, endocrine eval, will likely need home insulin culture for hyperglycemia
[2018-06-26] MEDS: Tiotropium 18 mcg Cap For Inhalation INH SCH (07:40)
[2018-06-26] MEDS: Fluticasone-Vilanterol 200/25mcg Diskus INH SCH (07:40)
[2018-06-26] MEDS: (Novolog) Insulin Aspart, Recombinant 100 u/ml 10 ml vial SC SCH ×4 (07:45→22:35)
[2018-06-26] MEDS: (Novolog Mix 70/30) Insulin Aspart/Insulin Aspar 100 units/ml SC SCH ×2 (08:30→17:36)
[2018-06-26 09:57] LABS: IRON 16 ug/dL (37-170)
[2018-06-26] MEDS ORDERED: Budesonide 0.25 mg/2 ml Inhal Susp UD IH SCH (10:00)
[2018-06-26 10:07] LABS: % IRON SATURATION 12 (20-55); TOTAL IRON BINDING CAPACITY 134 ug/dL (250-450)
[2018-06-26] MEDS ORDERED: Epoetin Alfa 10,000 unit/ml Dialysis IV ONE ×2 (10:15→10:20)
[2018-06-26 10:52] LABS: BASO % 0.3 % (0.0-2.0); EOS % 0.1 % (0.0-4.0); HEMOGLOBIN 7.7 g/dL (11.0-16.0); LYMPH # 0.7 K/uL (1.0-4.3); LYMPH % 5.1 % (20.0-40.0); MEAN CELL VOLUME 87.9 fL (81.0-99.0); MEAN CORPUSCULAR HEMOGLOBIN 27.2 pg (27.0-31.0); MEAN CORPUSCULAR HGB CONC 30.9 g/dL (33.0-37.0); MEAN PLATELET VOLUME 10.1 fL (7.2-11.7); MONO # 0.7 K/uL (0.0-0.8); MONO % 5.5 % (0.0-10.0); NEUT # 11.3 K/uL (1.8-7.0); PLATELET COUNT 215 K/uL (130-400); RBC 2.84 Mil/uL (3.80-5.20); RED CELL DISTRIBUTION WIDTH 17.1 % (11.5-14.5); WHITE BLOOD COUNT 12.7 K/uL (4.8-10.8)
[2018-06-26 11:15] LABS: LYMPHOCYTE 5 % (20-40); MONOCYTE 4 % (0-10); NEUTROPHIL 91 % (50-75); TOTAL CELLS COUNTED 100
[2018-06-26 11:16] LABS: ANISOCYTOSIS SLIGHT; HYPOCHROMIC SLIGHT; PLATELET ESTIMATE NORMAL (NORMAL)
[2018-06-26 11:17] LABS: POLYCHROMIC SLIGHT
--- NOTE | 2018-06-26 12:36 | CARD ---
APPROVED REPORT Date of service: 06/25/2018 EKG Measurement Heart [id number] <Conclusion> Normal sinus rhythm Possible Anterior infarct, age undetermined Abnormal ECG
[2018-06-26] MEDS: guaiFENesin DM 200 mg-20 mg/10 ml UD PO PRN (17:37)
[2018-06-26] MEDS ORDERED: Metoprolol 1 mg/ml Inj ONE ×2 (17:51→17:53)
--- NOTE | 2018-06-26 17:57 | PCM.RRT ---
CAREER SERVICES ASSISTANT Nurses Assessment - Situation Date: 06/26/18 Time CAREER SERVICES ASSISTANT was called: 17:43 CAREER SERVICES ASSISTANT Responder Arrival Time:: 17:45 CAREER SERVICES ASSISTANT Location:: T Med/Surg Room Number: 661A CAREER SERVICES ASSISTANT Reason for Call: Tachycardia CAREER SERVICES ASSISTANT Called By: RN - IV IV Inserted during CAREER SERVICES ASSISTANT?: No - Ventilator Settings FIO2 (% Oxygen): 40 - Vital Signs Vital Signs: T 101.3 HR 210 BP 132/73 RR17 O2 sat 97 on Vapotherm - [place] Coma Scale Coma Scale Eye Opening: Spontaneous Coma Scale Motor: Obeys Commands Movement Coma Scale Verbal: Oriented Coma Scale Total: 15 - Sepsis Screen Part 1 Sepsis Screen Part 1: Temperature over 100.6F I.Reason for CAREER SERVICES ASSISTANT - A) Acute Change in Patient: (Select all that apply): Acute change in heart rate less than 50 or greater than 120 - Neurological Status (Select all that apply): Alert, Responsive - Constitutional Appears: Non-toxic, No Acute Distress - Head Head Exam: ATRAUMATIC, NORMOCEPHALIC - Eyes Eye Exam: EOMI, Normal appearance - Respiratory Exam Respiratory Exam: Wheezes Additional comments: tachypnea - Cardiovascular Exam Cardiovascular Exam: Tachycardia, +S1, +S2 - GI/Abdominal Exam GI & Abdominal Exam: Soft, Normal Bowel Sounds. absent: Tenderness - Neurological Exam Neurological Exam: Alert, Awake, CN II-XII Intact, Oriented x3, Reflexes Normal - Extremities Exam Additional comments: L arm AVF Plan - Assessment of Findings&Treatment Plan CAREER SERVICES ASSISTANT was called by nursing staff for tachycardia when arising to seated position to eat dinner. She is s/p HD and had not received all medications since returning from HD. Blood cultures had already been drawn. BG was 403. Scheduled ISS and Tylenol were given after arrival. Lopressor 5mg given and HR decreased to 170s. Another 5mg Lopressor given and HR decreased to 150s. Cardizem 5mg IVP given and HR stayed at 150s. EKG ordered - AFib with RVR. Another Cardizem 5mg given and HR staying at 150s. Scheduled Robitussin given. Cardizem 10mg given and HR was in 140s. Cardizem drip @ 5 started. Tranferred to ICU. Accepted by Dr. Winkler. CAREER SERVICES ASSISTANT ended at 1813, T 101.3 HR 118 BP 109/88 RR 18 O2 sat 95% on Vapotherm 40%
--- NOTE | 2018-06-26 18:29 | CP.PCM.CON ---
Past Patient History - Infectious Disease Hx of Infectious Diseases: None - Past Medical History & Family History Past Medical History?: Yes - Past Social History Smoking Status: Former Smoker - CARDIAC Hx Cardiac Disorders: Yes Hx Atrial Fibrillation: Yes Hx Cardia Arrhythmia: Yes Hx Congestive Heart Failure: Yes Hx Hypercholesterolemia: Yes Hx Hypertension: Yes - PULMONARY Hx Respiratory Disorders: Yes Hx Chronic Obstructive Pulmonary Disease (COPD): Yes - NEUROLOGICAL Hx Neurological Disorder: No - HEENT Hx HEENT Problems: Yes Hx Cataracts: Yes (bilateral) - RENAL Hx Chronic Kidney Disease: Yes Type of Dialysis Access: HD Date of Last Dialysis Treatment: 06/24/18 Hx Kidney Stones: No Hx Neurogenic Bladder: No Hx Pyelonephritis: No Hx Renal (Kidney) Cancer: No Hx Renal Failure: Yes Other/Comment: HD -- @ [facility] - ENDOCRINE/METABOLIC Hx Endocrine Disorders: Yes Hx Diabetes Mellitus Type 1: Yes Hx Diabetes Mellitus Type 2: Yes Hx Hypothyroidism: Yes - HEMATOLOGICAL/ONCOLOGICAL Hx Blood Disorders: Yes Hx Anemia: Yes Other/Comment: Multiple Myeloma - INTEGUMENTARY Hx Dermatological Problems: No Hx Basil Cell: No Hx Padilla: No Hx Cellulitis: No Hx Eczema: No Hx Melanoma: No Hx Squamous Cell: No - MUSCULOSKELETAL/RHEUMATOLOGICAL Hx Musculoskeletal Disorders: Yes Hx Arthritis: Yes Hx Falls: No - GASTROINTESTINAL Hx Gastrointestinal Disorders: Yes Hx Hemorrhoids: Yes - GENITOURINARY/GYNECOLOGICAL Hx Genitourinary Disorders: No - PSYCHIATRIC Hx Psychophysiologic Disorder: No Hx Substance Use: No - SURGICAL HISTORY Hx Surgeries: Yes Hx Arteriovenous Shunt: Yes (LEFT ARM AV ,permacath) Hx Vascular Access Device: Yes (perma cath elaina cath) - ANESTHESIA Hx Anesthesia: Yes Hx Anesthesia Reactions: No Hx Malignant Hyperthermia: No Has any member of the family had a problem w/ anesthesia?: No Meds Allergies/Adverse Reactions: Allergies Allergy/AdvReac Type Severity Reaction Status Date / Time No Known Allergies Allergy Verified 06/25/18 14:25 - Medications Medications: Current Medications Acetaminophen (Tylenol 325mg Tab) 650 mg PO Q6 PRN PRN Reason: Fever >100.4 F Albuterol/Ipratropium (Duoneb 3 Mg/0.5 Mg (3 Ml) Ud) 3 ml IH RQ6 [facility] Last Admin: 06/26/18 13:15 Dose: 3 ml Amiodarone HCl (Cordarone) 200 mg PO DAILY [facility] Last Admin: 06/26/18 09:39 Dose: Not Given Apixaban (Eliquis) 2.5 mg PO BID [facility] Last Admin: 06/26/18 17:36 Dose: 2.5 mg Budesonide (Pulmicort Respules) 1 mg IH RBID [facility] Calcium Acetate (Phoslo) 667 mg PO TID [facility] Last Admin: 06/26/18 17:36 Dose: 667 mg Famotidine (Pepcid) 20 mg PO DAILY [facility] Last Admin: 06/26/18 09:40 Dose: Not Given Ferrous Sulfate (Feosol) 325 mg PO DAILY [facility] Last Admin: 06/26/18 09:39 Dose: Not Given Fluticasone/Vilanterol (Breo Ellipta 200-25 Mcg Inh) 1 puff INH RQD [facility] Last Admin: 06/26/18 07:40 Dose: Not Given Glipizide (Glucotrol) 10 mg PO ACBD [facility] Last Admin: 06/26/18 16:37 Dose: 10 mg Guaifenesin/Dextromethorphan (Robitussin Dm) 10 ml PO Q4H PRN PRN Reason: Cough and congestion Last Admin: 06/26/18 17:37 Dose: 10 ml Home Med (Meropenem [Merrem Iv]) 500 mg IVPB Q12H [facility] Last Admin: 06/26/18 11:40 Dose: Not Given Diltiazem HCl 125 mg/ Sodium (Chloride) 125 mls @ 5 mls/hr IV .Q24H [facility]; Protocol Last Admin: 06/26/18 18:25 Dose: 5 mls/hr Insulin Aspart (Novolog) 10 unit SC ONCE [facility] Insulin Aspart (Novolog Mix 70/30 (70/30 Units/Ml)) 20 units SC ACBD [facility] Last Admin: 06/26/18 17:36 Dose: 20 units Insulin Aspart (Novolog) 0 unit SC ACHS [facility]; Protocol Last Admin: 06/26/18 17:35 Dose: 12 units Insulin Detemir (Levemir) 12 unit SC Q12H [facility] Last Admin: 06/26/18 11:40 Dose: Not Given Levothyroxine Sodium (Synthroid) 150 mcg PO DAILY@0630 [facility] Last Admin: 06/26/18 06:05 Dose: 150 mcg Methylprednisolone (Solu-Medrol) 40 mg IVP Q8H [facility] Metoprolol Tartrate (Lopressor) 25 mg PO BID [facility] Last Admin: 06/26/18 17:37 Dose: 25 mg Rosuvastatin Calcium (Crestor) 5 mg PO HS [facility] Last Admin: 06/26/18 00:12 Dose: 5 mg Tiotropium [place] (Spiriva) 18 mcg INH RQ24 [facility] Last Admin: 06/26/18 07:40 Dose: Not Given Results - Vital Signs Recent Vital Signs: Last Vital Signs Temp 101 F H 06/26/18 15:52 Pulse 95 H 06/26/18 16:00 Resp 20 06/26/18 15:52 BP 126/74 06/26/18 17:37 Pulse Ox 97 06/26/18 15:52 - Labs Result Diagrams: 06/26/18 10:13 06/25/18 15:20 Labs: Laboratory Results - last 24 hr 06/25/18 06/26/18 06/26/18 20:13 00:05 06:21 WBC RBC Hgb Hct MCV MCH MCHC RDW Plt Count MPV Neut % (Auto) Lymph % (Auto) [place] % (Auto) Eos % (Auto) Baso % (Auto) Neut # (Auto) Lymph # (Auto) [place] # (Auto) Eos # (Auto) Baso # (Auto) Neutrophils % (Manual) Lymphocytes % (Manual) Monocytes % (Manual) Platelet Estimate Polychromasia Hypochromasia (manual) Anisocytosis (manual) POC Glucose (mg/dL) 164 H 278 H 142 H Lactic Acid Iron TIBC % Saturation Ferritin 06/26/18 06/26/18 06/26/18 09:40 09:40 10:13 WBC 12.7 H RBC 2.84 L Hgb 7.7 L Hct 24.9 L MCV 87.9 MCH 27.2 MCHC 30.9 L RDW 17.1 H Plt Count 215 MPV 10.1 Neut % (Auto) 89.0 H Lymph % (Auto) 5.1 L [place] % (Auto) 5.5 Eos % (Auto) 0.1 Baso % (Auto) 0.3 Neut # (Auto) 11.3 H Lymph # (Auto) 0.7 L [place] # (Auto) 0.7 Eos # (Auto) 0.0 Baso # (Auto) 0.0 Neutrophils % (Manual) 91 H Lymphocytes % (Manual) 5 L Monocytes % (Manual) 4 Platelet Estimate Normal Polychromasia Slight Hypochromasia (manual) Slight Anisocytosis (manual) Slight POC Glucose (mg/dL) Lactic Acid Iron 16 L TIBC 134 L % Saturation 12 L Ferritin 3280.0 06/26/18 06/26/18 11:30 17:51 WBC RBC Hgb Hct MCV MCH MCHC RDW Plt Count MPV Neut % (Auto) Lymph % (Auto) [place] % (Auto) Eos % (Auto) Baso % (Auto) Neut # (Auto) Lymph # (Auto) [place] # (Auto) Eos # (Auto) Baso # (Auto) Neutrophils % (Manual) Lymphocytes % (Manual) Monocytes % (Manual) Platelet Estimate Polychromasia Hypochromasia (manual) Anisocytosis (manual) POC Glucose (mg/dL) 145 H Lactic Acid 1.6 Iron TIBC % Saturation Ferritin
--- NOTE | 2018-06-26 19:01 | CP.CCUPN ---
CCU Subjective - Physician Review Subjective (Free Text): 06/26/18 18:57 The Patient was seen and examined at the bedside, Medical records reviewed, and management issues were discussed and formulated with the house staff. I have reviewed all the relevant clinical, laboratory, hemodynamic, radiographic data and medications Events reviewed Patient is 83 years old female with past medical history of hypertension, hypothyroid, atrial fibrillation, diabetes, anemia, multiple myeloma, congestive heart failure and chronic obstructive pulmonary disease who initially presented for evaluation of blood sugar, she was admitted to the medical service for further management This afternoon rapid response was called due to tachycardia, her vital sign at that time was heart rate of 210 blood pressure 132/73 RR 17, temp of 101.3 F and saturation was 97% on Vapotherm patient received IV Lopressor IV Cardizem and started on Cardizem drip and transferred to the intensive care unit for further management Critical Care Time Spent (in minutes): 45 CCU Objective - Vital Signs / Intake & Output Vital Signs (Last 4 hours): Vital Signs Temp Pulse Resp BP Pulse Ox 06/26/18 17:37 126/74 06/26/18 16:00 95 H 06/26/18 15:52 101 F H 95 H 20 126/74 97 Intake and Output (Last 8hrs): Intake & Output 06/26/18 06/26/18 06/26/18 06:59 14:59 22:59 Intake Total 200 Balance 200 Weight 150 lb 9.211 oz Intake: Oral 200 Other: Voiding Method Bedside Commode # Bowel Movements 1 - Physical Exam Head: Positive for: Atraumatic, Normocephalic Pupils: Positive for: PERRL Extroacular Muscles: Positive for: EOMI Conjunctiva: Positive for: Normal Neck: Positive for: Normal Range of Motion. Negative for: Meningeal Signs, JVD, Lymphadenopathy Respiratory/Chest: Positive for: Clear to Auscultation, Good Air Exchange. Negative for: Respiratory Distress, Accessory Muscle Use Cardiovascular: Positive for: Irregular Rhythm - Medications Active Medications: Active Medications Generic Name Dose Route Start Last Admin Trade Name Freq PRN Reason Stop Dose Admin Acetaminophen 650 mg 06/26/18 16:06 Tylenol 325mg Tab PO Q6 PRN Fever >100.4 F Albuterol/Ipratropium 3 ml 06/25/18 23:00 06/26/18 13:15 Duoneb 3 Mg/0.5 Mg (3 Ml) Ud IH 3 ml RQ6 [facility] Administration Amiodarone HCl 200 mg 06/26/18 10:00 06/26/18 09:39 Cordarone PO Not Given DAILY [facility] Apixaban 2.5 mg 06/25/18 23:00 06/26/18 17:36 Eliquis PO 2.5 mg BID [facility] Administration Budesonide 1 mg 06/26/18 10:00 Pulmicort Respules IH RBID [facility] Calcium Acetate 667 mg 06/26/18 10:00 06/26/18 17:36 Phoslo PO 667 mg TID [facility] Administration Famotidine 20 mg 06/26/18 10:00 06/26/18 09:40 Pepcid PO Not Given DAILY [facility] Ferrous Sulfate 325 mg 06/26/18 10:00 06/26/18 09:39 Feosol PO Not Given DAILY [facility] Fluticasone/Vilanterol 1 puff 06/26/18 08:00 06/26/18 07:40 Breo Ellipta 200-25 Mcg Inh INH Not Given RQD [facility] Glipizide 10 mg 06/26/18 07:30 06/26/18 16:37 Glucotrol PO 10 mg ACBD [facility] Administration Guaifenesin/Dextromethorphan 10 ml 06/26/18 16:07 06/26/18 17:37 Robitussin Dm PO 10 ml Q4H PRN Administration Cough and congestion Home Med 500 mg 06/25/18 23:00 06/26/18 11:40 Meropenem [Merrem Iv] IVPB Not Given Q12H [facility] Diltiazem HCl 125 mg/ Sodium 125 mls @ 5 mls/hr 06/26/18 18:00 06/26/18 18:25 Chloride IV 5 mls/hr .Q24H [facility] Administration Protocol 5 MG/HR Insulin Aspart 10 unit 06/25/18 23:00 Novolog SC ONCE [facility] Insulin Aspart 20 units 06/26/18 07:30 06/26/18 17:36 Novolog Mix 70/30 (70/30 Units/Ml) SC 20 units ACBD [facility] Administration Insulin Aspart 0 unit 06/26/18 07:30 06/26/18 17:35 Novolog SC 12 units ACHS [facility] Administration Protocol Insulin Detemir 12 unit 06/25/18 23:00 06/26/18 11:40 Levemir SC Not Given Q12H [facility] Levothyroxine Sodium 150 mcg 06/26/18 06:30 06/26/18 06:05 Synthroid PO 150 mcg DAILY@0630 [facility] Administration Methylprednisolone 40 mg 06/27/18 06:00 Solu-Medrol IVP Q8H [facility] Metoprolol Tartrate 25 mg 06/26/18 10:00 06/26/18 17:37 Lopressor PO 25 mg BID [facility] Administration Rosuvastatin Calcium 5 mg 06/25/18 23:00 06/26/18 00:12 Crestor PO 5 mg HS [facility] Administration Tiotropium [place] 18 mcg 06/26/18 08:00 06/26/18 07:40 Spiriva INH Not Given RQ24 [facility] - Patient Studies Lab Studies: Lab Studies 06/26/18 06/26/18 06/26/18 Range/Units 17:51 11:30 10:13 WBC 12.7 H (4.8-10.8) K/uL RBC 2.84 L (3.80-5.20) Mil/uL Hgb 7.7 L (11.0-16.0) g/dL Hct 24.9 L (34.0-47.0) % MCV 87.9 (81.0-99.0) fL MCH 27.2 (27.0-31.0) pg MCHC 30.9 L (33.0-37.0) g/dL RDW 17.1 H (11.5-14.5) % Plt Count 215 (130-400) K/uL MPV 10.1 (7.2-11.7) fL Neut % (Auto) 89.0 H (50.0-75.0) % Lymph % (Auto) 5.1 L (20.0-40.0) % Bland % (Auto) 5.5 (0.0-10.0) % Eos % (Auto) 0.1 (0.0-4.0) % Baso % (Auto) 0.3 (0.0-2.0) % Neut # (Auto) 11.3 H (1.8-7.0) K/uL Lymph # (Auto) 0.7 L (1.0-4.3) K/uL Bland # (Auto) 0.7 (0.0-0.8) K/uL Eos # (Auto) 0.0 (0.0-0.7) K/uL Baso # (Auto) 0.0 (0.0-0.2) K/uL Neutrophils % (Manual) 91 H (50-75) % Lymphocytes % (Manual) 5 L (20-40) % Monocytes % (Manual) 4 (0-10) % Platelet Estimate Normal (NORMAL) Polychromasia Slight Hypochromasia (manual) Slight Anisocytosis (manual) Slight POC Glucose (mg/dL) 145 H (65-110) mg/dL Lactic Acid 1.6 (0.7-2.1) mmol/L Iron (37-170) ug/dL TIBC (250-450) ug/dL % Saturation (20-55) Ferritin ng/mL 06/26/18 06/26/18 06/26/18 Range/Units 09:40 09:40 06:21 WBC (4.8-10.8) K/uL RBC (3.80-5.20) Mil/uL Hgb (11.0-16.0) g/dL Hct (34.0-47.0) % MCV (81.0-99.0) fL MCH (27.0-31.0) pg MCHC (33.0-37.0) g/dL RDW (11.5-14.5) % Plt Count (130-400) K/uL MPV (7.2-11.7) fL Neut % (Auto) (50.0-75.0) % Lymph % (Auto) (20.0-40.0) % Bland % (Auto) (0.0-10.0) % Eos % (Auto) (0.0-4.0) % Baso % (Auto) (0.0-2.0) % Neut # (Auto) (1.8-7.0) K/uL Lymph # (Auto) (1.0-4.3) K/uL Bland # (Auto) (0.0-0.8) K/uL Eos # (Auto) (0.0-0.7) K/uL Baso # (Auto) (0.0-0.2) K/uL Neutrophils % (Manual) (50-75) % Lymphocytes % (Manual) (20-40) % Monocytes % (Manual) (0-10) % Platelet Estimate (NORMAL) Polychromasia Hypochromasia (manual) Anisocytosis (manual) POC Glucose (mg/dL) 142 H (65-110) mg/dL Lactic Acid (0.7-2.1) mmol/L Iron 16 L (37-170) ug/dL TIBC 134 L (250-450) ug/dL % Saturation 12 L (20-55) Ferritin 3280.0 ng/mL 06/26/18 06/25/18 Range/Units 00:05 20:13 WBC (4.8-10.8) K/uL RBC (3.80-5.20) Mil/uL Hgb (11.0-16.0) g/dL Hct (34.0-47.0) % MCV (81.0-99.0) fL MCH (27.0-31.0) pg MCHC (33.0-37.0) g/dL RDW (11.5-14.5) % Plt Count (130-400) K/uL MPV (7.2-11.7) fL Neut % (Auto) (50.0-75.0) % Lymph % (Auto) (20.0-40.0) % Bland % (Auto) (0.0-10.0) % Eos % (Auto) (0.0-4.0) % Baso % (Auto) (0.0-2.0) % Neut # (Auto) (1.8-7.0) K/uL Lymph # (Auto) (1.0-4.3) K/uL Bland # (Auto) (0.0-0.8) K/uL Eos # (Auto) (0.0-0.7) K/uL Baso # (Auto) (0.0-0.2) K/uL Neutrophils % (Manual) (50-75) % Lymphocytes % (Manual) (20-40) % Monocytes % (Manual) (0-10) % Platelet Estimate (NORMAL) Polychromasia Hypochromasia (manual) Anisocytosis (manual) POC Glucose (mg/dL) 278 H 164 H (65-110) mg/dL Lactic Acid (0.7-2.1) mmol/L Iron (37-170) ug/dL TIBC (250-450) ug/dL % Saturation (20-55) Ferritin ng/mL Laboratory Results - last 24 hr 06/25/18 06/26/18 06/26/18 20:13 00:05 06:21 WBC RBC Hgb Hct MCV MCH MCHC RDW Plt Count MPV Neut % (Auto) Lymph % (Auto) Bland % (Auto) Eos % (Auto) Baso % (Auto) Neut # (Auto) Lymph # (Auto) Bland # (Auto) Eos # (Auto) Baso # (Auto) Neutrophils % (Manual) Lymphocytes % (Manual) Monocytes % (Manual) Platelet Estimate Polychromasia Hypochromasia (manual) Anisocytosis (manual) POC Glucose (mg/dL) 164 H 278 H 142 H Lactic Acid Iron TIBC % Saturation Ferritin 06/26/18 06/26/18 06/26/18 09:40 09:40 10:13 WBC 12.7 H RBC 2.84 L Hgb 7.7 L Hct 24.9 L MCV 87.9 MCH 27.2 MCHC 30.9 L RDW 17.1 H Plt Count 215 MPV 10.1 Neut % (Auto) 89.0 H Lymph % (Auto) 5.1 L Bland % (Auto) 5.5 Eos % (Auto) 0.1 Baso % (Auto) 0.3 Neut # (Auto) 11.3 H Lymph # (Auto) 0.7 L Bland # (Auto) 0.7 Eos # (Auto) 0.0 Baso # (Auto) 0.0 Neutrophils % (Manual) 91 H Lymphocytes % (Manual) 5 L Monocytes % (Manual) 4 Platelet Estimate Normal Polychromasia Slight Hypochromasia (manual) Slight Anisocytosis (manual) Slight POC Glucose (mg/dL) Lactic Acid Iron 16 L TIBC 134 L % Saturation 12 L Ferritin 3280.0 06/26/18 06/26/18 11:30 17:51 WBC RBC Hgb Hct MCV MCH MCHC RDW Plt Count MPV Neut % (Auto) Lymph % (Auto) Bland % (Auto) Eos % (Auto) Baso % (Auto) Neut # (Auto) Lymph # (Auto) Bland # (Auto) Eos # (Auto) Baso # (Auto) Neutrophils % (Manual) Lymphocytes % (Manual) Monocytes % (Manual) Platelet Estimate Polychromasia Hypochromasia (manual) Anisocytosis (manual) POC Glucose (mg/dL) 145 H Lactic Acid 1.6 Iron TIBC % Saturation Ferritin EKG/Cardiology Studies: Cardiology / EKG Studies 06/26/18 17:56 EKG [ELECTROCARDIOGRAM] Stat Comment: Mode Of Transportation: Reason For Exam: tachycardia Fingerstick Blood Sugar Results: 403 Review of Systems - Review of Systems Systems not reviewed;Unavailable: Altered Mental Status Critical Care Progress Note - Extremities/Vascular Does the Patient have a Central Venous Catheter?: No Does the Patient need a Central Venous Catheter?: No Does the Patient have a Morgan Catheter?: No Does the Patient need a Morgan Catheter?: No - Nutrition Nutrition: Nutrition Category Date Time Status Renal Diet [DIET] Diets 06/26/18 Breakfast Active Assessment/Plan (1) Atrial fibrillation with RVR Current Visit: Yes Status: Acute (2) CHF exacerbation Current Visit: Yes Status: Acute (3) Dyspnea Current Visit: Yes Status: Acute (4) ESRD (end stage renal disease) on dialysis Current Visit: Yes Status: Acute (5) Chronic a-fib Current Visit: Yes Status: Acute - Assessment and Plan (Free Text) Assessment: 83 years old female getting transfer to the intensive care unit for further management of atrial fibrillation with rapid ventricular response We will start the patient on Cardizem drip at 5 mg/h titrate up for heart rate below 110 Stat labs including electrolytes were sent Echocardiogram Trend troponin Strict I's and O's
--- NOTE | 2018-06-26 20:01 | CP.PCM.PN ---
Subjective - Date & Time of Evaluation Date of Evaluation: 06/26/18 Time of Evaluation: 11:15 - Subjective Subjective: pt seen and examined at bedside no acute overnight events reported resp stable on vapotherm for HD today nephro and pulm following Objective - Vital Signs/Intake and Output Vital Signs (last 24 hours): Temp Pulse Resp BP Pulse Ox 100.7 F H 95 H 20 126/74 97 06/26/18 19:19 06/26/18 16:00 06/26/18 15:52 06/26/18 17:37 06/26/18 15:52 Intake and Output: 06/26/18 06/27/18 18:59 06:59 Intake Total 200 Balance 200 - Medications Medications: Current Medications Acetaminophen (Tylenol 325mg Tab) 650 mg PO Q6 PRN PRN Reason: Fever >100.4 F Last Admin: 06/26/18 18:19 Dose: 650 mg Albuterol/Ipratropium (Duoneb 3 Mg/0.5 Mg (3 Ml) Ud) 3 ml IH RQ6 [facility] Last Admin: 06/26/18 19:40 Dose: Not Given Amiodarone HCl (Cordarone) 200 mg PO DAILY [facility] Last Admin: 06/26/18 09:39 Dose: Not Given Apixaban (Eliquis) 2.5 mg PO BID [facility] Last Admin: 06/26/18 17:36 Dose: 2.5 mg Budesonide (Pulmicort Respules) 1 mg IH RBID [facility] Calcium Acetate (Phoslo) 667 mg PO TID [facility] Last Admin: 06/26/18 17:36 Dose: 667 mg Famotidine (Pepcid) 20 mg PO DAILY [facility] Last Admin: 06/26/18 09:40 Dose: Not Given Ferrous Sulfate (Feosol) 325 mg PO DAILY [facility] Last Admin: 06/26/18 09:39 Dose: Not Given Fluticasone/Vilanterol (Breo Ellipta 200-25 Mcg Inh) 1 puff INH RQD [facility] Last Admin: 06/26/18 07:40 Dose: Not Given Glipizide (Glucotrol) 10 mg PO ACBD [facility] Last Admin: 06/26/18 16:37 Dose: 10 mg Guaifenesin/Dextromethorphan (Robitussin Dm) 10 ml PO Q4H PRN PRN Reason: Cough and congestion Last Admin: 06/26/18 17:37 Dose: 10 ml Home Med (Meropenem [Merrem Iv]) 500 mg IVPB Q12H [facility] Last Admin: 06/26/18 11:40 Dose: Not Given Diltiazem HCl 125 mg/ Sodium (Chloride) 125 mls @ 5 mls/hr IV .Q24H [facility]; Protocol Last Admin: 06/26/18 19:50 Dose: 12 mg/hr, 12 mls/hr Insulin Aspart (Novolog) 10 unit SC ONCE [facility] Insulin Aspart (Novolog Mix 70/30 (70/30 Units/Ml)) 20 units SC ACBD [facility] Last Admin: 06/26/18 17:36 Dose: 20 units Insulin Aspart (Novolog) 0 unit SC ACHS [facility]; Protocol Last Admin: 06/26/18 17:35 Dose: 12 units Insulin Detemir (Levemir) 12 unit SC Q12H [facility] Last Admin: 06/26/18 11:40 Dose: Not Given Levothyroxine Sodium (Synthroid) 150 mcg PO DAILY@0630 [facility] Last Admin: 06/26/18 06:05 Dose: 150 mcg Methylprednisolone (Solu-Medrol) 40 mg IVP Q8H [facility] Metoprolol Tartrate (Lopressor) 25 mg PO BID [facility] Last Admin: 06/26/18 17:37 Dose: 25 mg Rosuvastatin Calcium (Crestor) 5 mg PO HS [facility] Last Admin: 06/26/18 00:12 Dose: 5 mg Tiotropium [place] (Spiriva) 18 mcg INH RQ24 [facility] Last Admin: 06/26/18 07:40 Dose: Not Given - Labs Labs: 06/26/18 10:13 06/25/18 15:20 - Constitutional Appears: Well - Head Exam Head Exam: ATRAUMATIC, NORMAL INSPECTION, NORMOCEPHALIC - Eye Exam Eye Exam: EOMI, Normal appearance, PERRL Pupil Exam: NORMAL ACCOMODATION, PERRL - ENT Exam ENT Exam: Mucous Membranes Moist, Normal Exam - Neck Exam Neck Exam: Full ROM, Normal Inspection. absent: Lymphadenopathy - Respiratory Exam Respiratory Exam: Decreased Breath Sounds - Cardiovascular Exam Cardiovascular Exam: REGULAR RHYTHM, +S1, +S2 - GI/Abdominal Exam GI & Abdominal Exam: Soft, Diminished Bowel Sounds - Rectal Exam Rectal Exam: Deferred Assessment and Plan (1) CHF exacerbation Status: Acute (2) Dyspnea Status: Acute (3) ESRD (end stage renal disease) on dialysis Status: Acute (4) Uncontrolled diabetes mellitus Status: Acute (5) MARIA EUGENIA (acute kidney injury) Status: Acute (6) Abdominal pain Status: Acute (7) Acute bronchitis Status: Acute (8) Acute kidney injury Status: Acute (9) Acute kidney injury superimposed on chronic kidney disease Status: Acute (10) Acute respiratory failure Status: Acute (11) Anemia Status: Acute (12) Anemia of chronic disease Status: Acute (13) Atrial fibrillation with controlled ventricular response Status: Acute (14) Back pain of thoracolumbar region Status: Acute (15) Bronchitis Status: Acute (16) Bronchitis Status: Acute (17) CHF (congestive heart failure) Status: Acute (18) CHF (congestive heart failure) Status: Acute (19) CKD (chronic kidney disease) stage 3, GFR 30-59 ml/min Status: Acute (20) COPD (chronic obstructive pulmonary disease) Status: Acute (21) COPD exacerbation Status: Acute (22) COPD exacerbation Status: Acute (23) Chest pain Status: Acute (24) ESR raised Status: Acute (25) ESRD (end stage renal disease) Status: Acute (26) Fluid overload Status: Acute (27) Fluid overload, unspecified Status: Acute (28) Gastritis Status: Acute (29) Hepatitis Status: Acute (30) History of asthma Status: Acute (31) History of atrial fibrillation Status: Acute (32) History of back pain Status: Acute (33) History of gastroesophageal reflux (GERD) Status: Acute (34) Hypercalcemia Status: Acute (35) Hyperlipemia Status: Acute (36) Influenza Status: Acute (37) Leucocytosis Status: Acute (38) Lower extremity pain Status: Acute (39) Multiple myeloma Status: Acute (40) Multiple myeloma Status: Acute (41) Myeloma Status: Acute (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 (43) Occult gastrointestinal hemorrhage Status: Acute (44) Paroxysmal A-fib Status: Acute (45) Pneumonia Status: Acute (46) Prophylactic measure Status: Acute (47) Pulmonary hypertension Status: Acute (48) Pulmonary hypertension Status: Acute (49) Renal failure Status: Acute (50) Respiratory tract infection Status: Acute (51) Streptococcus pneumoniae Status: Acute (52) Symptomatic anemia Status: Acute (53) Vertigo Status: Acute (54) Worsening renal function Status: Acute (55) Anemia Status: Chronic (56) Asthma Status: Chronic (57) Atrial fibrillation Status: Chronic (58) Chronic diastolic (congestive) heart failure Status: Chronic (59) Diabetes Status: Chronic (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
[2018-06-26] MEDS ORDERED: Digoxin 500 mcg/2ml (0.5 mg/2ml) Inj IVP ONE ×2 (20:15→20:31)
[2018-06-26] MEDS ORDERED: Digoxin 500 mcg/2ml (0.5 mg/2ml) Inj ONE (20:24)
[2018-06-26 20:28] VITALS: PULSE 148
[2018-06-26] MEDS ORDERED: Metoprolol 1 mg/ml Inj IVP ONE (21:16)
[2018-06-27] MEDS: Albuterol-Ipratrop 3 mg / 0.5 (3 ml) UD IH SCH ×4 (01:58→19:55)
[2018-06-27] MEDS: Home Med 1 UNIT (Meropenem [Merrem Iv] 500 MG) IVPB SCH (02:00)
[2018-06-27] MEDS ORDERED: (Novolog) Insulin Aspart, Recombinant 100 u/ml 10 ml vial SC ONE (05:36)
[2018-06-27] MEDS: MethylPREDNISolone 40 mg Vial IVP SCH ×3 (05:46→21:35)
[2018-06-27 06:28] LABS: BASO % 0.1 % (0.0-2.0); HEMOGLOBIN 8.2 g/dL (11.0-16.0); LYMPH # 0.9 K/uL (1.0-4.3); LYMPH % 8.1 % (20.0-40.0); MEAN CELL VOLUME 91.8 fL (81.0-99.0); MEAN CORPUSCULAR HEMOGLOBIN 27.3 pg (27.0-31.0); MEAN CORPUSCULAR HGB CONC 29.7 g/dL (33.0-37.0); MEAN PLATELET VOLUME 11.3 fL (7.2-11.7); MONO # 0.3 K/uL (0.0-0.8); MONO % 2.5 % (0.0-10.0); NEUT # 10.1 K/uL (1.8-7.0); NEUT % 89.3 % (50.0-75.0); PLATELET COUNT 207 K/uL (130-400); RED CELL DISTRIBUTION WIDTH 17.6 % (11.5-14.5); WHITE BLOOD COUNT 11.3 K/uL (4.8-10.8)
[2018-06-27] MEDS: Levothyroxine 150 MCG TAB PO SCH (06:38)
[2018-06-27 06:49] LABS: ALB/GLOB RATIO 0.9 (1.0-2.1); ALBUMIN 2.8 g/dL (3.5-5.0); CALCIUM 8.1 mg/dl (8.6-10.4)
[2018-06-27] MEDS: (Novolog) Insulin Aspart, Recombinant 100 u/ml 10 ml vial SC SCH ×4 (08:00→22:00)
[2018-06-27 08:18] LABS: LYMPHOCYTE 5 % (20-40); MONOCYTE 2 % (0-10); NEUTROPHIL 93 % (50-75); TOTAL CELLS COUNTED 100
[2018-06-27] MEDS: Fluticasone-Vilanterol 200/25mcg Diskus INH SCH (08:18)
[2018-06-27 08:20] LABS: PLATELET ESTIMATE NORMAL (NORMAL)
[2018-06-27 08:21] LABS: ANISOCYTOSIS SLIGHT
[2018-06-27 08:22] LABS: HYPOCHROMIC SLIGHT; POLYCHROMIC SLIGHT
[2018-06-27] MEDS: (Novolog Mix 70/30) Insulin Aspart/Insulin Aspar 100 units/ml SC SCH ×2 (08:49→17:00)
--- NOTE | 2018-06-27 09:23 | CP.PCM.PN ---
Subjective - Date & Time of Evaluation Date of Evaluation: 06/27/18 Time of Evaluation: 09:20 - Subjective Subjective: events noted Transferred to ICU for SVT episode On IV amiodarone drip in NSR now stable dialysis 06/26 BP lower now alert, appetite ok still with cough- dry Objective - Vital Signs/Intake and Output Vital Signs (last 24 hours): Temp Pulse Resp BP Pulse Ox 98.0 F 67 21 106/44 L 96 06/27/18 08:00 06/27/18 08:00 06/27/18 08:00 06/27/18 08:00 06/27/18 08:00 Intake and Output: 06/27/18 06/27/18 06:59 18:59 Intake Total 2428.2 33.2 Output Total 0 Balance 2428.2 33.2 - Medications Medications: Current Medications Acetaminophen (Tylenol 325mg Tab) 650 mg PO Q6 PRN PRN Reason: Fever >100.4 F Last Admin: 06/26/18 18:19 Dose: 650 mg Albuterol/Ipratropium (Duoneb 3 Mg/0.5 Mg (3 Ml) Ud) 3 ml IH RQ6 [facility] Last Admin: 06/27/18 08:10 Dose: 3 ml Apixaban (Eliquis) 2.5 mg PO BID [facility] Last Admin: 06/27/18 09:09 Dose: 2.5 mg Budesonide (Pulmicort Respules) 1 mg IH RBID [facility] Calcium Acetate (Phoslo) 667 mg PO TID [facility] Last Admin: 06/27/18 09:09 Dose: 667 mg Epoetin Eddie (Procrit) 10,000 unit IV MWF [facility] Famotidine (Pepcid) 20 mg PO DAILY [facility] Last Admin: 06/27/18 09:09 Dose: 20 mg Ferrous Sulfate (Feosol) 325 mg PO DAILY [facility] Last Admin: 06/27/18 09:09 Dose: 325 mg Fluticasone/Vilanterol (Breo Ellipta 200-25 Mcg Inh) 1 puff INH RQD [facility] Last Admin: 06/26/18 07:40 Dose: Not Given Glipizide (Glucotrol) 10 mg PO ACBD [facility] Last Admin: 06/27/18 08:00 Dose: 10 mg Guaifenesin/Dextromethorphan (Robitussin Dm) 10 ml PO Q4H PRN PRN Reason: Cough and congestion Last Admin: 06/26/18 17:37 Dose: 10 ml Home Med (Meropenem [Merrem Iv]) 500 mg IVPB Q12H [facility] Last Admin: 06/27/18 02:00 Dose: 500 mg Diltiazem HCl 125 mg/ Sodium (Chloride) 125 mls @ 5 mls/hr IV .Q24H [facility]; Protocol Last Titration: 06/26/18 22:15 Dose: 0 mg/hr, 0 mls/hr Ceftriaxone Sodium 1 gm/ (Sodium Chloride) 100 mls @ 100 mls/hr IVPB DAILY [facility]; Protocol Last Admin: 06/27/18 09:11 Dose: 100 mls/hr Azithromycin 500 mg/ Sodium (Chloride) 250 mls @ 250 mls/hr IVPB DAILY@1100 [facility]; Protocol Amiodarone HCl 900 mg/ (Dextrose) 500 mls @ 16.67 mls/hr IV .Q24H [facility]; Protocol Stop: 06/28/18 03:14 Last Admin: 06/27/18 03:15 Dose: 16.67 mls/hr Insulin Aspart (Novolog) 10 unit SC ONCE [facility] Insulin Aspart (Novolog Mix 70/30 (70/30 Units/Ml)) 20 units SC ACBD [facility] Last Admin: 06/27/18 08:49 Dose: 20 units Insulin Aspart (Novolog) 0 unit SC ACHS [facility]; Protocol Last Admin: 06/27/18 08:00 Dose: 10 units Insulin Detemir (Levemir) 12 unit SC Q12H [facility] Last Admin: 06/26/18 22:00 Dose: Not Given Levothyroxine Sodium (Synthroid) 150 mcg PO DAILY@0630 [facility] Last Admin: 06/27/18 06:38 Dose: 150 mcg Methylprednisolone (Solu-Medrol) 40 mg IVP Q8H [facility] Last Admin: 06/27/18 05:46 Dose: 40 mg Metoprolol Tartrate (Lopressor) 25 mg PO BID [facility] Last Admin: 06/27/18 09:10 Dose: Not Given Rosuvastatin Calcium (Crestor) 5 mg PO HS [facility] Last Admin: 06/26/18 22:35 Dose: 5 mg Tiotropium [place] (Spiriva) 18 mcg INH RQ24 [facility] Last Admin: 06/26/18 07:40 Dose: Not Given - Labs Labs: 06/27/18 06:19 06/27/18 06:19 - Constitutional Appears: In Acute Distress, Chronically Ill - Head Exam Head Exam: ATRAUMATIC, NORMAL INSPECTION - Eye Exam Eye Exam: EOMI, Normal appearance - Neck Exam Neck Exam: Normal Inspection. absent: Tenderness - Respiratory Exam Respiratory Exam: Rhonchi, NORMAL BREATHING PATTERN - Cardiovascular Exam Cardiovascular Exam: REGULAR RHYTHM, +S1 - GI/Abdominal Exam GI & Abdominal Exam: Soft. absent: Tenderness - Extremities Exam Extremities Exam: Normal Inspection. absent: Tenderness - Neurological Exam Neurological Exam: Awake, CN II-XII Intact - Skin Skin Exam: Dry, Warm Assessment and Plan (1) Atrial fibrillation with RVR Status: Acute (2) CHF exacerbation Status: Acute (3) COPD exacerbation Status: Acute (4) Multiple myeloma Status: Acute - Assessment and Plan (Free Text) Plan: Amiodarone drip- as per ICU Dialysis MWF, adequate UF Start EPO Steroids for COPD BS control Check TFTs
--- NOTE | 2018-06-27 09:39 | CP.CCUPN ---
CCU Subjective - Physician Review Subjective (Free Text): ICU Progress Note for Dr. Hopper Pt seen and examined at bedside this am. States she is feeling better compared to yesterday. Has not ambulated out of bed yet. Denies headache, dizziness, chest pain, sob, n/v/d/c, abd pain, urinary complaints, or other symptoms. On amiodarone and cardizem drips currently. No acute events reported overnight by staff. CCU Objective - Vital Signs / Intake & Output Vital Signs (Last 4 hours): Vital Signs Temp Pulse Resp BP Pulse Ox 06/27/18 08:00 98.0 F 67 21 106/44 L 96 06/27/18 07:00 68 20 123/57 L 97 06/27/18 05:55 18 Intake and Output (Last 8hrs): Intake & Output 06/26/18 06/27/18 06/27/18 22:59 06:59 14:59 Intake Total 1033.6 1399.6 33.2 Output Total 0 0 Balance 1033.6 1399.6 33.2 Weight 142 lb 8.96 oz Intake: IV 77.0 Intake, IV Amount 206.6 1399.6 33.2 Right Antecubital 40 0 Right Antecubital Y 66.6 199.6 33.2 Right Forearm 100 700 Right Forearm Y 500 Oral 750 Output: Urine 0 0 Urine, Voided 0 0 - Physical Exam Head: Positive for: Atraumatic, Normocephalic Pupils: Positive for: PERRL Extroacular Muscles: Positive for: EOMI Conjunctiva: Positive for: Normal Neck: Positive for: Normal Range of Motion. Negative for: Meningeal Signs, JVD, Lymphadenopathy Respiratory/Chest: Positive for: Clear to Auscultation, Good Air Exchange. Ne gative for: Respiratory Distress, Accessory Muscle Use Cardiovascular: Positive for: Irregular Rhythm Abdomen: Positive for: Normal Bowel Sounds. Negative for: Tenderness, Distention, Mass/Organomegaly Upper Extremity: Positive for: Normal Inspection, Normal ROM, NORMAL PULSES, Neurovascularly Intact, Capillary Refill < 2s. Negative for: Cyanosis, Edema Lower Extremity: Positive for: Normal Inspection, NORMAL PULSES, Normal ROM, Neurovascularly Intact, Capillary Refill < 2 s. Negative for: Edema, CALF TENDERNESS Neurological: Positive for: GCS=15, CN II-XII Intact, Speech Normal Skin: Positive for: Warm, Dry, Normal Color Psychiatric: Positive for: Alert, Oriented x 3 - Medications Active Medications: Active Medications Generic Name Dose Route Start Last Admin Trade Name Freq PRN Reason Stop Dose Admin Acetaminophen 650 mg 06/26/18 16:06 06/26/18 18:19 Tylenol 325mg Tab PO 650 mg Q6 PRN Administration Fever >100.4 F Albuterol/Ipratropium 3 ml 06/25/18 23:00 06/27/18 08:10 Duoneb 3 Mg/0.5 Mg (3 Ml) Ud IH 3 ml RQ6 MARIBETH Administration Apixaban 2.5 mg 06/25/18 23:00 06/27/18 09:09 Eliquis PO 2.5 mg BID MARIBETH Administration Budesonide 1 mg 06/26/18 10:00 Pulmicort Respules IH RBID MARIBETH Calcium Acetate 667 mg 06/26/18 10:00 06/27/18 09:09 Phoslo PO 667 mg TID MARIBETH Administration Epoetin Eddie 10,000 unit 06/28/18 09:00 Procrit IV MWF MARIBETH Famotidine 20 mg 06/26/18 10:00 06/27/18 09:09 Pepcid PO 20 mg DAILY MARIBETH Administration Ferrous Sulfate 325 mg 06/26/18 10:00 06/27/18 09:09 Feosol PO 325 mg DAILY MARIBETH Administration Fluticasone/Vilanterol 1 puff 06/26/18 08:00 06/26/18 07:40 Breo Ellipta 200-25 Mcg Inh INH Not Given RQD MARIBETH Glipizide 10 mg 06/26/18 07:30 06/27/18 08:00 Glucotrol PO 10 mg ACBD MARIBETH Administration Guaifenesin/Dextromethorphan 10 ml 06/26/18 16:07 06/26/18 17:37 Robitussin Dm PO 10 ml Q4H PRN Administration Cough and congestion Home Med 500 mg 06/25/18 23:00 06/27/18 02:00 Meropenem [Merrem Iv] IVPB 500 mg Q12H MARIBETH Administration Diltiazem HCl 125 mg/ Sodium 125 mls @ 5 mls/hr 06/26/18 19:40 06/26/18 22:15 Chloride IV 0 mg/hr .Q24H MARIBETH 0 mls/hr Titration Protocol 5 MG/HR Ceftriaxone Sodium 1 gm/ 100 mls @ 100 mls/hr 06/27/18 10:00 06/27/18 09:11 Sodium Chloride IVPB 100 mls/hr DAILY MARIBETH Administration Protocol Azithromycin 500 mg/ Sodium 250 mls @ 250 mls/hr 06/27/18 11:00 Chloride IVPB DAILY@1100 MARIBETH Protocol Amiodarone HCl 900 mg/ 500 mls @ 16.67 mls/hr 06/27/18 03:15 06/27/18 03:15 Dextrose IV 06/28/18 03:14 16.67 mls/hr .Q24H ONE Administration Protocol 0.5 MG/MIN Insulin Aspart 10 unit 06/25/18 23:00 Novolog SC ONCE MARIBETH Insulin Aspart 20 units 06/26/18 07:30 06/27/18 08:49 Novolog Mix 70/30 (70/30 Units/Ml) SC 20 units ACBD MARIBETH Administration Insulin Aspart 0 unit 06/26/18 07:30 06/27/18 08:00 Novolog SC 10 units ACHS MARIBETH Administration Protocol Insulin Detemir 12 unit 06/25/18 23:00 06/26/18 22:00 Levemir SC Not Given Q12H [facility] Levothyroxine Sodium 150 mcg 06/26/18 06:30 06/27/18 06:38 Synthroid PO 150 mcg DAILY@0630 MARIBETH Administration Methylprednisolone 40 mg 06/27/18 06:00 06/27/18 05:46 Solu-Medrol IVP 40 mg Q8H MARIBETH Administration Metoprolol Tartrate 25 mg 06/26/18 10:00 06/27/18 09:10 Lopressor PO Not Given BID MARIBETH Rosuvastatin Calcium 5 mg 06/25/18 23:00 06/26/18 22:35 Crestor PO 5 mg HS MARIBETH Administration Tiotropium Paige 18 mcg 06/26/18 08:00 06/26/18 07:40 Spiriva INH Not Given RQ24 MARIBETH - Patient Studies Lab Studies: Lab Studies 06/27/18 06/27/18 06/27/18 Range/Units 06:19 06:19 06:19 WBC 11.3 H (4.8-10.8) K/uL RBC 3.00 L (3.80-5.20) Mil/uL Hgb 8.2 L (11.0-16.0) g/dL Hct 27.5 L (34.0-47.0) % MCV 91.8 D (81.0-99.0) fL MCH 27.3 (27.0-31.0) pg MCHC 29.7 L (33.0-37.0) g/dL RDW 17.6 H (11.5-14.5) % Plt Count 207 (130-400) K/uL MPV 11.3 (7.2-11.7) fL Neut % (Auto) 89.3 H (50.0-75.0) % Lymph % (Auto) 8.1 L (20.0-40.0) % [place] % (Auto) 2.5 (0.0-10.0) % Eos % (Auto) 0.0 (0.0-4.0) % Baso % (Auto) 0.1 (0.0-2.0) % Neut # (Auto) 10.1 H (1.8-7.0) K/uL Lymph # (Auto) 0.9 L (1.0-4.3) K/uL [place] # (Auto) 0.3 (0.0-0.8) K/uL Eos # (Auto) 0.0 (0.0-0.7) K/uL Baso # (Auto) 0.0 (0.0-0.2) K/uL Neutrophils % (Manual) 93 H (50-75) % Lymphocytes % (Manual) 5 L (20-40) % Monocytes % (Manual) 2 (0-10) % Platelet Estimate Normal (NORMAL) Polychromasia Slight Hypochromasia (manual) Slight Anisocytosis (manual) Slight Sodium 135 (132-148) mmol/L Potassium 4.9 (3.6-5.2) mmol/L Chloride 96 L (98-107) mmol/L Carbon Dioxide 31 H (22-30) mmol/L Anion Gap 13 (10-20) BUN 36 H (7-17) mg/dL Creatinine 2.7 H (0.7-1.2) mg/dL Est GFR ( Amer) 20 Est GFR (Non-Af Amer) 17 POC Glucose (mg/dL) (65-110) mg/dL Random Glucose 467 H* (65-105) mg/dL Lactic Acid (0.7-2.1) mmol/L Calcium 8.1 L (8.6-10.4) mg/dl Phosphorus 4.3 (2.5-4.5) mg/dL Magnesium 2.0 (1.6-2.3) mg/dL Iron (37-170) ug/dL TIBC (250-450) ug/dL % Saturation (20-55) Ferritin ng/mL Total Bilirubin 0.6 (0.2-1.3) mg/dL AST 61 H D (14-36) U/L ALT 51 (9-52) U/L Alkaline Phosphatase 59 (38-126) U/L Total Creatine Kinase < 20 L (30-135) U/L Total Protein 6.0 L (6.3-8.3) g/dL Albumin 2.8 L (3.5-5.0) g/dL Globulin 3.2 (2.2-3.9) gm/dL Albumin/Globulin Ratio 0.9 L (1.0-2.1) 06/26/18 06/26/18 06/26/18 Range/Units 17:51 17:04 11:30 WBC (4.8-10.8) K/uL RBC (3.80-5.20) Mil/uL Hgb (11.0-16.0) g/dL Hct (34.0-47.0) % MCV (81.0-99.0) fL MCH (27.0-31.0) pg MCHC (33.0-37.0) g/dL RDW (11.5-14.5) % Plt Count (130-400) K/uL MPV (7.2-11.7) fL Neut % (Auto) (50.0-75.0) % Lymph % (Auto) (20.0-40.0) % [place] % (Auto) (0.0-10.0) % Eos % (Auto) (0.0-4.0) % Baso % (Auto) (0.0-2.0) % Neut # (Auto) (1.8-7.0) K/uL Lymph # (Auto) (1.0-4.3) K/uL [place] # (Auto) (0.0-0.8) K/uL Eos # (Auto) (0.0-0.7) K/uL Baso # (Auto) (0.0-0.2) K/uL Neutrophils % (Manual) (50-75) % Lymphocytes % (Manual) (20-40) % Monocytes % (Manual) (0-10) % Platelet Estimate (NORMAL) Polychromasia Hypochromasia (manual) Anisocytosis (manual) Sodium (132-148) mmol/L Potassium (3.6-5.2) mmol/L Chloride (98-107) mmol/L Carbon Dioxide (22-30) mmol/L Anion Gap (10-20) BUN (7-17) mg/dL Creatinine (0.7-1.2) mg/dL Est GFR ( Amer) Est GFR (Non-Af Amer) POC Glucose (mg/dL) 403 H* 145 H (65-110) mg/dL Random Glucose (65-105) mg/dL Lactic Acid 1.6 (0.7-2.1) mmol/L Calcium (8.6-10.4) mg/dl Phosphorus (2.5-4.5) mg/dL Magnesium (1.6-2.3) mg/dL Iron (37-170) ug/dL TIBC (250-450) ug/dL % Saturation (20-55) Ferritin ng/mL Total Bilirubin (0.2-1.3) mg/dL AST (14-36) U/L ALT (9-52) U/L Alkaline Phosphatase (38-126) U/L Total Creatine Kinase (30-135) U/L Total Protein (6.3-8.3) g/dL Albumin (3.5-5.0) g/dL Globulin (2.2-3.9) gm/dL Albumin/Globulin Ratio (1.0-2.1) 06/26/18 06/26/18 06/26/18 Range/Units 10:13 09:40 09:40 WBC 12.7 H (4.8-10.8) K/uL RBC 2.84 L (3.80-5.20) Mil/uL Hgb 7.7 L (11.0-16.0) g/dL Hct 24.9 L (34.0-47.0) % MCV 87.9 (81.0-99.0) fL MCH 27.2 (27.0-31.0) pg MCHC 30.9 L (33.0-37.0) g/dL RDW 17.1 H (11.5-14.5) % Plt Count 215 (130-400) K/uL MPV 10.1 (7.2-11.7) fL Neut % (Auto) 89.0 H (50.0-75.0) % Lymph % (Auto) 5.1 L (20.0-40.0) % [place] % (Auto) 5.5 (0.0-10.0) % Eos % (Auto) 0.1 (0.0-4.0) % Baso % (Auto) 0.3 (0.0-2.0) % Neut # (Auto) 11.3 H (1.8-7.0) K/uL Lymph # (Auto) 0.7 L (1.0-4.3) K/uL [place] # (Auto) 0.7 (0.0-0.8) K/uL Eos # (Auto) 0.0 (0.0-0.7) K/uL Baso # (Auto) 0.0 (0.0-0.2) K/uL Neutrophils % (Manual) 91 H (50-75) % Lymphocytes % (Manual) 5 L (20-40) % Monocytes % (Manual) 4 (0-10) % Platelet Estimate Normal (NORMAL) Polychromasia Slight Hypochromasia (manual) Slight Anisocytosis (manual) Slight Sodium (132-148) mmol/L Potassium (3.6-5.2) mmol/L Chloride (98-107) mmol/L Carbon Dioxide (22-30) mmol/L Anion Gap (10-20) BUN (7-17) mg/dL Creatinine (0.7-1.2) mg/dL Est GFR ( Amer) Est GFR (Non-Af Amer) POC Glucose (mg/dL) (65-110) mg/dL Random Glucose (65-105) mg/dL Lactic Acid (0.7-2.1) mmol/L Calcium (8.6-10.4) mg/dl Phosphorus (2.5-4.5) mg/dL Magnesium (1.6-2.3) mg/dL Iron 16 L (37-170) ug/dL TIBC 134 L (250-450) ug/dL % Saturation 12 L (20-55) Ferritin 3280.0 ng/mL Total Bilirubin (0.2-1.3) mg/dL AST (14-36) U/L ALT (9-52) U/L Alkaline Phosphatase (38-126) U/L Total Creatine Kinase (30-135) U/L Total Protein (6.3-8.3) g/dL Albumin (3.5-5.0) g/dL Globulin (2.2-3.9) gm/dL Albumin/Globulin Ratio (1.0-2.1) 06/26/18 Range/Units 06:21 WBC (4.8-10.8) K/uL RBC (3.80-5.20) Mil/uL Hgb (11.0-16.0) g/dL Hct (34.0-47.0) % MCV (81.0-99.0) fL MCH (27.0-31.0) pg MCHC (33.0-37.0) g/dL RDW (11.5-14.5) % Plt Count (130-400) K/uL MPV (7.2-11.7) fL Neut % (Auto) (50.0-75.0) % Lymph % (Auto) (20.0-40.0) % [place] % (Auto) (0.0-10.0) % Eos % (Auto) (0.0-4.0) % Baso % (Auto) (0.0-2.0) % Neut # (Auto) (1.8-7.0) K/uL Lymph # (Auto) (1.0-4.3) K/uL [place] # (Auto) (0.0-0.8) K/uL Eos # (Auto) (0.0-0.7) K/uL Baso # (Auto) (0.0-0.2) K/uL Neutrophils % (Manual) (50-75) % Lymphocytes % (Manual) (20-40) % Monocytes % (Manual) (0-10) % Platelet Estimate (NORMAL) Polychromasia Hypochromasia (manual) Anisocytosis (manual) Sodium (132-148) mmol/L Potassium (3.6-5.2) mmol/L Chloride (98-107) mmol/L Carbon Dioxide (22-30) mmol/L Anion Gap (10-20) BUN (7-17) mg/dL Creatinine (0.7-1.2) mg/dL Est GFR ( Amer) Est GFR (Non-Af Amer) POC Glucose (mg/dL) 142 H (65-110) mg/dL Random Glucose (65-105) mg/dL Lactic Acid (0.7-2.1) mmol/L Calcium (8.6-10.4) mg/dl Phosphorus (2.5-4.5) mg/dL Magnesium (1.6-2.3) mg/dL Iron (37-170) ug/dL TIBC (250-450) ug/dL % Saturation (20-55) Ferritin ng/mL Total Bilirubin (0.2-1.3) mg/dL AST (14-36) U/L ALT (9-52) U/L Alkaline Phosphatase (38-126) U/L Total Creatine Kinase (30-135) U/L Total Protein (6.3-8.3) g/dL Albumin (3.5-5.0) g/dL Globulin (2.2-3.9) gm/dL Albumin/Globulin Ratio (1.0-2.1) Laboratory Results - last 24 hr 06/26/18 06/26/18 06/26/18 06:21 09:40 09:40 WBC RBC Hgb Hct MCV MCH MCHC RDW Plt Count MPV Neut % (Auto) Lymph % (Auto) [place] % (Auto) Eos % (Auto) Baso % (Auto) Neut # (Auto) Lymph # (Auto) [place] # (Auto) Eos # (Auto) Baso # (Auto) Neutrophils % (Manual) Lymphocytes % (Manual) Monocytes % (Manual) Platelet Estimate Polychromasia Hypochromasia (manual) Anisocytosis (manual) Sodium Potassium Chloride Carbon Dioxide Anion Gap BUN Creatinine Est GFR ( Amer) Est GFR (Non-Af Amer) POC Glucose (mg/dL) 142 H Random Glucose Lactic Acid Calcium Phosphorus Magnesium Iron 16 L TIBC 134 L % Saturation 12 L Ferritin 3280.0 Total Bilirubin AST ALT Alkaline Phosphatase Total Creatine Kinase Total Protein Albumin Globulin Albumin/Globulin Ratio 06/26/18 06/26/18 06/26/18 10:13 11:30 17:04 WBC 12.7 H RBC 2.84 L Hgb 7.7 L Hct 24.9 L MCV 87.9 MCH 27.2 MCHC 30.9 L RDW 17.1 H Plt Count 215 MPV 10.1 Neut % (Auto) 89.0 H Lymph % (Auto) 5.1 L [place] % (Auto) 5.5 Eos % (Auto) 0.1 Baso % (Auto) 0.3 Neut # (Auto) 11.3 H Lymph # (Auto) 0.7 L [place] # (Auto) 0.7 Eos # (Auto) 0.0 Baso # (Auto) 0.0 Neutrophils % (Manual) 91 H Lymphocytes % (Manual) 5 L Monocytes % (Manual) 4 Platelet Estimate Normal Polychromasia Slight Hypochromasia (manual) Slight Anisocytosis (manual) Slight Sodium Potassium Chloride Carbon Dioxide Anion Gap BUN Creatinine Est GFR ( Amer) Est GFR (Non-Af Amer) POC Glucose (mg/dL) 145 H 403 H* Random Glucose Lactic Acid Calcium Phosphorus Magnesium Iron TIBC % Saturation Ferritin Total Bilirubin AST ALT Alkaline Phosphatase Total Creatine Kinase Total Protein Albumin Globulin Albumin/Globulin Ratio 06/26/18 06/27/18 06/27/18 17:51 06:19 06:19 WBC 11.3 H RBC 3.00 L Hgb 8.2 L Hct 27.5 L MCV 91.8 D MCH 27.3 MCHC 29.7 L RDW 17.6 H Plt Count 207 MPV 11.3 Neut % (Auto) 89.3 H Lymph % (Auto) 8.1 L [place] % (Auto) 2.5 Eos % (Auto) 0.0 Baso % (Auto) 0.1 Neut # (Auto) 10.1 H Lymph # (Auto) 0.9 L [place] # (Auto) 0.3 Eos # (Auto) 0.0 Baso # (Auto) 0.0 Neutrophils % (Manual) 93 H Lymphocytes % (Manual) 5 L Monocytes % (Manual) 2 Platelet Estimate Normal Polychromasia Slight Hypochromasia (manual) Slight Anisocytosis (manual) Slight Sodium 135 Potassium 4.9 Chloride 96 L Carbon Dioxide 31 H Anion Gap 13 BUN 36 H Creatinine 2.7 H Est GFR ( Amer) 20 Est GFR (Non-Af Amer) 17 POC Glucose (mg/dL) Random Glucose 467 H* Lactic Acid 1.6 Calcium 8.1 L Phosphorus 4.3 Magnesium 2.0 Iron TIBC % Saturation Ferritin Total Bilirubin 0.6 AST 61 H D ALT 51 Alkaline Phosphatase 59 Total Creatine Kinase Total Protein 6.0 L Albumin 2.8 L Globulin 3.2 Albumin/Globulin Ratio 0.9 L 06/27/18 06:19 WBC RBC Hgb Hct MCV MCH MCHC RDW Plt Count MPV Neut % (Auto) Lymph % (Auto) [place] % (Auto) Eos % (Auto) Baso % (Auto) Neut # (Auto) Lymph # (Auto) [place] # (Auto) Eos # (Auto) Baso # (Auto) Neutrophils % (Manual) Lymphocytes % (Manual) Monocytes % (Manual) Platelet Estimate Polychromasia Hypochromasia (manual) Anisocytosis (manual) Sodium Potassium Chloride Carbon Dioxide Anion Gap BUN Creatinine Est GFR ( Amer) Est GFR (Non-Af Amer) POC Glucose (mg/dL) Random Glucose Lactic Acid Calcium Phosphorus Magnesium Iron TIBC % Saturation Ferritin Total Bilirubin AST ALT Alkaline Phosphatase Total Creatine Kinase < 20 L Total Protein Albumin Globulin Albumin/Globulin Ratio EKG/Cardiology Studies: Cardiology / EKG Studies 06/26/18 17:56 EKG [ELECTROCARDIOGRAM] Stat Comment: Mode Of Transportation: Reason For Exam: tachycardia 06/27/18 09:15 EKG [ELECTROCARDIOGRAM] Stat Comment: Mode Of Transportation: Reason For Exam: eval for interval change Fingerstick Blood Sugar Results: 375 Review of Systems - Constitutional Constitutional: absent: Fever, Chills, Sweats - Cardiovascular Cardiovascular: absent: Chest Pain, Dyspnea on Exertion, Pain Radiating to Arm/Neck/Jaw, Palpitations - Respiratory Respiratory: Cough. absent: Dyspnea, Wheezing - Gastrointestinal Gastrointestinal: absent: Abdominal Pain, Constipation, Diarrhea, Nausea, Vomiting Critical Care Progress Note - Nutrition Nutrition: Nutrition Category Date Time Status Renal Diet [DIET] Diets 06/26/18 Breakfast Active Assessment/Plan - Assessment and Plan (Free Text) Assessment: 83 y o female with PMhx HTN, hypothyroidism, A-fib, DM, anemia, multiple myeloma, CHF, and COPD who initially presented with hyperglycemia and admitted to medical service for further management. Rapid response was called on 06/26/18 due to tachycardia 2/2 pt arising to seated position for dinner. Was s/p HD and did not receive all meds after returning from HD. Pt was given IV Lopressor, Cardizem, without improvement in HR, was started on IV Cardizem drip for rate control. EKG at that time demonstrated A-fib with RVR. Currently being monitored in ICU. Plan: Neuro: -AAOx3, no gross deficits on exam, will cont to monitor Cardio: -Afib with RVR S/p CORE LAYER MACHINE OPERATOR on 06/26/18, EKG during CORE LAYER MACHINE OPERATOR demonstrated Afib with RVR, repeat EKG this am demonstrates NSR Placed on Cardizem drip at rate of 5 mg/hr Amiodarone drip added at rate of 0.5 mg/min S/p Cardizem and Digoxin IVPs without improvement in HR C/w home med Eliquis 2.5 mg PO bid C/w Lopressor 25 mg PO bid Cardiology consulted (Dr. Gold), recs appreciated Trop 0.03 -Hx HTN, CHF BNP elevated on admission -Vitals stable. 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 No pleural parenchymal loculation or riana guous pleural-based infiltrate here is suspected. No interval consolidation seen. Increase conspicuity of L medial basal bronchiectasis. Cardiomegaly with similar mild pulmonary venous congestion suspect. Atherosclerotic vascular disease - as before. Medi port tip R atrium as before. -On Vapotherm, cont to monitor, vitals stable -Pulm consulted (Dr. Mai), recs appreciated GI: -Renal diet -Protonix -No acute issues at this time Renal: -Hx ESRD on HD MWF C/w HD while inpatient -Nephro (Dr. Bill) consulted, recs appreciated -EPO started Heme: -H/H 8.2/27.5, trending up, cont to monitor -EPO started -Iron studies demonstrate deficiency -Leukocytosis trending down ID: -Leukocytosis trending down -Afebrile -Azithromycin and Rocephin for tx of PNA Endo: -Hx hypothyroidism C/w Synthroid 150 mcg daily TSH, T3 levels low, repeat levels tomorrow am -Hx DM, admitted for hyperglycemia during this current admission Insulin aspart 20 U sc acbd Levemir 12 U sc q12h Glipizide 10 mg PO acbd ISS Fingersticks achs Hypoglycemic protocol A1c pending PPX: -Malachi, SCD, Star Pt seen, examined with, and plan discussed with Dr. Hopper, attending physician. Mandeep Garduno DO PGY-1, [employer] Pager #[phone]
[2018-06-27 09:43] LABS: CK-MB 0.82 ng/mL (0.0-3.38)
[2018-06-27] MEDS: Azithromycin 500 MG in Sodium Chloride 0.9% 250 ML IVPB SCH (10:14)
--- NOTE | 2018-06-27 10:26 | CARD ---
APPROVED REPORT Date of service: 06/26/2018 EKG Measurement Heart [id number] <Conclusion> Atrial fibrillation with rapid ventricular response with premature ventricular or aberrantly conducted complexes Inferior infarct, age undetermined Abnormal ECG
[2018-06-27] MEDS: Insulin Detemir 100 units/ml Vial (Levemir) SC SCH ×2 (12:00→23:00)
[2018-06-27] MEDS ORDERED: guaiFENesin 100 mg/5 ml Syrup UD PO PRN (12:52)
--- NOTE | 2018-06-27 13:05 | RAD ---
Date of service: 06/26/2018 HISTORY: febrile COMPARISON: 06/25/2018 FINDINGS: LUNGS: The prior left inferolateral pleural like based opacity is no longer seen as such. No significant left pleural effusion loculated are not is now suggested here. Is the inspiration albeit still shallow is slightly greater now than before. Left infrahilar bronchiectasis is suspect. Some suggestion of its presence previously is noted in retrospect. No right consolidation seen. PLEURA: No significant pleural effusion identified, no pneumothorax apparent. CARDIOVASCULAR: There is presence of aortic atherosclerotic calcification on x-ray. Cardiomegaly-similar. Probable concomitant mild pulmonary venous congestion present. Not significantly changed. Left Port-A-Cath inserted-appearance and position overseas tip in right atrium) as before. OSSEOUS STRUCTURES: Above the left MediPort port, again noted is a healed deformed left posterior rib. VISUALIZED UPPER ABDOMEN: Normal. OTHER FINDINGS: None. IMPRESSION: The prior left inferolateral pleural like based pathology opacity is no longer seen. No pleural parenchymal loculation or contiguous pleural based infiltrate here is suspect. No interval consolidation seen. Increase conspicuity of left medial basal bronchiectasis-as above. Cardiomegaly with similar mild pulmonary venous congestion suspect. Atherosclerotic vascular disease-as before. Medi port tip right atrium as before.
[2018-06-27] MEDS: guaiFENesin DM 200 mg-20 mg/10 ml UD PO PRN ×2 (14:09→20:25)
--- NOTE | 2018-06-27 18:01 | CP.PCM.PN ---
Subjective - Date & Time of Evaluation Date of Evaluation: 06/27/18 Time of Evaluation: 13:15 - Subjective Subjective: pt seen and examined at bedside in icu s/p [employer] yesterday afternoon noted to be tachycardic was hypertensive SBP >200 and febrile during [employer] started on cardizem drip and critical healthcare science specialist following no acute overnight events reported no c/o fever, chest pain, sob, palpitations, dizziness, n/v/d, abdominal pain Objective - Vital Signs/Intake and Output Vital Signs (last 24 hours): Temp Pulse Resp BP Pulse Ox 98.9 F 71 21 145/41 L 98 06/27/18 16:00 06/27/18 17:00 06/27/18 17:00 06/27/18 17:26 06/27/18 17:00 Intake and Output: 06/27/18 06/27/18 06:59 18:59 Intake Total 2428.2 182.6 Output Total 0 Balance 2428.2 182.6 - Medications Medications: Current Medications Acetaminophen (Tylenol 325mg Tab) 650 mg PO Q6 PRN PRN Reason: Fever >100.4 F Last Admin: 06/26/18 18:19 Dose: 650 mg Albuterol/Ipratropium (Duoneb 3 Mg/0.5 Mg (3 Ml) Ud) 3 ml IH RQ6 [facility] Last Admin: 06/27/18 08:10 Dose: 3 ml Apixaban (Eliquis) 2.5 mg PO BID [facility] Last Admin: 06/27/18 17:26 Dose: 2.5 mg Budesonide (Pulmicort Respules) 1 mg IH RBID [facility] Calcium Acetate (Phoslo) 667 mg PO TID [facility] Last Admin: 06/27/18 17:26 Dose: 667 mg Epoetin Eddie (Procrit) 10,000 unit IV MWF [facility] Famotidine (Pepcid) 20 mg PO DAILY [facility] Last Admin: 06/27/18 09:09 Dose: 20 mg Ferrous Sulfate (Feosol) 325 mg PO DAILY [facility] Last Admin: 06/27/18 09:09 Dose: 325 mg Fluticasone/Vilanterol (Breo Ellipta 200-25 Mcg Inh) 1 puff INH RQD [facility] Last Admin: 06/26/18 07:40 Dose: Not Given Glipizide (Glucotrol) 10 mg PO ACBD [facility] Last Admin: 06/27/18 17:29 Dose: 10 mg Guaifenesin/Dextromethorphan (Robitussin Dm) 10 ml PO Q4H PRN PRN Reason: Cough and congestion Last Admin: 06/27/18 14:09 Dose: 10 ml Diltiazem HCl 125 mg/ Sodium (Chloride) 125 mls @ 5 mls/hr IV .Q24H [facility]; Protocol Last Titration: 06/26/18 22:15 Dose: 0 mg/hr, 0 mls/hr Ceftriaxone Sodium 1 gm/ (Sodium Chloride) 100 mls @ 100 mls/hr IVPB DAILY [facility]; Protocol Last Admin: 06/27/18 09:11 Dose: 100 mls/hr Azithromycin 500 mg/ Sodium (Chloride) 250 mls @ 250 mls/hr IVPB DAILY@1100 [facility]; Protocol Last Admin: 06/27/18 10:14 Dose: 250 mls/hr Amiodarone HCl 900 mg/ (Dextrose) 500 mls @ 16.67 mls/hr IV .Q24H [facility]; Protocol Stop: 06/28/18 03:14 Last Admin: 06/27/18 03:15 Dose: 16.67 mls/hr Insulin Aspart (Novolog) 10 unit SC ONCE [facility] Insulin Aspart (Novolog Mix 70/30 (70/30 Units/Ml)) 20 units SC ACBD [facility] Last Admin: 06/27/18 17:00 Dose: 20 units Insulin Aspart (Novolog) 0 unit SC ACHS [facility]; Protocol Last Admin: 06/27/18 17:23 Dose: 10 units Insulin Detemir (Levemir) 12 unit SC Q12H [facility] Last Admin: 06/27/18 12:00 Dose: 12 units Levothyroxine Sodium (Synthroid) 150 mcg PO DAILY@0630 [facility] Last Admin: 06/27/18 06:38 Dose: 150 mcg Methylprednisolone (Solu-Medrol) 40 mg IVP Q8H [facility] Last Admin: 06/27/18 14:09 Dose: 40 mg Metoprolol Tartrate (Lopressor) 25 mg PO BID [facility] Last Admin: 06/27/18 17:26 Dose: 25 mg Rosuvastatin Calcium (Crestor) 5 mg PO HS [facility] Last Admin: 06/26/18 22:35 Dose: 5 mg Tiotropium [place] (Spiriva) 18 mcg INH RQ24 [facility] Last Admin: 06/26/18 07:40 Dose: Not Given - Labs Labs: 06/27/18 06:19 06/27/18 06:19 - Constitutional Appears: Well - Head Exam Head Exam: ATRAUMATIC, NORMAL INSPECTION, NORMOCEPHALIC - Eye Exam Eye Exam: EOMI, Normal appearance, PERRL Pupil Exam: NORMAL ACCOMODATION, PERRL - ENT Exam ENT Exam: Mucous Membranes Moist, Normal Exam - Neck Exam Neck Exam: Full ROM, Normal Inspection. absent: Lymphadenopathy - Respiratory Exam Respiratory Exam: Decreased Breath Sounds - Cardiovascular Exam Cardiovascular Exam: REGULAR RHYTHM, +S1, +S2 - GI/Abdominal Exam GI & Abdominal Exam: Soft, Diminished Bowel Sounds - Rectal Exam Rectal Exam: Deferred Assessment and Plan (1) CHF exacerbation Status: Acute (2) Dyspnea Status: Acute (3) ESRD (end stage renal disease) on dialysis Status: Acute (4) Uncontrolled diabetes mellitus Status: Acute (5) MARIA EUGENIA (acute kidney injury) Status: Acute (6) Abdominal pain Status: Acute (7) Acute bronchitis Status: Acute (8) Acute kidney injury Status: Acute (9) Acute kidney injury superimposed on chronic kidney disease Status: Acute (10) Acute respiratory failure Status: Acute (11) Anemia Status: Acute (12) Anemia of chronic disease Status: Acute (13) Atrial fibrillation with controlled ventricular response Status: Acute (14) Back pain of thoracolumbar region Status: Acute (15) Bronchitis Status: Acute (16) Bronchitis Status: Acute (17) CHF (congestive heart failure) Status: Acute (18) CHF (congestive heart failure) Status: Acute (19) CKD (chronic kidney disease) stage 3, GFR 30-59 ml/min Status: Acute (20) COPD (chronic obstructive pulmonary disease) Status: Acute (21) COPD exacerbation Status: Acute (22) COPD exacerbation Status: Acute (23) Chest pain Status: Acute (24) ESR raised Status: Acute (25) ESRD (end stage renal disease) Status: Acute (26) Fluid overload Status: Acute (27) Fluid overload, unspecified Status: Acute (28) Gastritis Status: Acute (29) Hepatitis Status: Acute (30) History of asthma Status: Acute (31) History of atrial fibrillation Status: Acute (32) History of back pain Status: Acute (33) History of gastroesophageal reflux (GERD) Status: Acute (34) Hypercalcemia Status: Acute (35) Hyperlipemia Status: Acute (36) Influenza Status: Acute (37) Leucocytosis Status: Acute (38) Lower extremity pain Status: Acute (39) Multiple myeloma Status: Acute (40) Multiple myeloma Status: Acute (41) Myeloma Status: Acute (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 (43) Occult gastrointestinal hemorrhage Status: Acute (44) Paroxysmal A-fib Status: Acute (45) Pneumonia Status: Acute (46) Prophylactic measure Status: Acute (47) Pulmonary hypertension Status: Acute (48) Pulmonary hypertension Status: Acute (49) Renal failure Status: Acute (50) Respiratory tract infection Status: Acute (51) Streptococcus pneumoniae Status: Acute (52) Symptomatic anemia Status: Acute (53) Vertigo Status: Acute (54) Worsening renal function Status: Acute (55) Anemia Status: Chronic (56) Asthma Status: Chronic (57) Atrial fibrillation Status: Chronic (58) Chronic diastolic (congestive) heart failure Status: Chronic (59) Diabetes Status: Chronic (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 - Assessment and Plan (Free Text) Plan: vitals and labs reviewed pt in icu f/u with critical care md meds reviewed riana amiodarone and cardizem drip riana levemir glipizide novolog iss riana other meds as ordered HD per Nephro pulm on board resp support as necessary spiriva accuchecks monitor for fever repeat labs dvt/gi ppx - scds/pepcid pt/ot
--- NOTE | 2018-06-27 18:45 | CP.PCM.CON ---
History of Present Illness - History of Present Illness History of Present Illness: 83 year old female with a history of COPD, CHF, DM, afib, hypothyroid, multiple myeloma admitted for worsening respiratory status with exac CHF/COPD as well as uncontrolled blood sugar Past medical history: COPD, CHF, DM, afib, hypothyroid, multiple myeloma Past surgical history: Denies Family history: DM Social history: Denies tobacco, alcohol, and illicit drug use. Allergies: NKA Review of Systems - Review of Systems All systems: reviewed and no additional remarkable complaints except - Constitutional Constitutional: As Per HPI - EENT Eyes: absent: As Per HPI, Blind Spots, Blurred Vision, Change in Vision, Decreased Night Vision, Diplopia, Discharge, Dry Eye, Exophthalmos, Floaters, Irritation, Itchy Eyes, Loss of Peripheral Vision, Pain, Photophobia, Requires Corrective Lenses, Sees Flashes, Spots in Vision, Tunnel Vision, Other Visual Disturbances, Loss of Vision, Other Ears: absent: As Per HPI, Decreased Hearing, Ear Discharge, Ear Pain, Tinnitus, Abnormal Hearing, Disequilibrium, Dizziness, Other Nose/Mouth/Throat: absent: As Per HPI, Epistaxis, Nasal Congestion, Nasal Discharge, Nasal Obstruction, Nasal Trauma, Nose Pain, Post Nasal Drip, Sinus Pain, Sinus Pressure, Bleeding Gums, Change in Voice, Dental Pain, Dry Mouth, Dysphagia, Halitosis, Hoarsness, Lip Swelling, Mouth Lesions, Mouth Pain, Odynop hagia, Sore Throat, Throat Swelling, Tongue Swelling, Facial Pain, Neck Pain, Neck Mass, Other - Breasts Breasts: absent: As Per HPI, Change in Shape, Mass, Pain, Nipple Discharge, Nipple Inversion, Skin Changes, Swelling, Other - Cardiovascular Cardiovascular: absent: As Per HPI, Acrocyanosis, Chest Pain, Chest Pain at Rest, Chest Pain with Activity, Claudication, Diaphoresis, Dyspnea, Dyspnea on Exertion, Edema, Irregular Heart Rhythm, Pain Radiating to Arm/Neck/Jaw, Leg Edema, Leg Ulcers, Lightheadedness, Orthopnea, Palpitations, Paroxysmal Nocturnal Dyspnea, Pedal Edema, Radiating Pain, Rapid Heart Rate, Slow Heart Rate, Syncope, Other - Respiratory Respiratory: absent: As Per HPI, Cough, Dyspnea, Hemoptysis, Dyspnea on Exertion, Wheezing, Snoring, Stridor, Pain on Inspiration, Chest Congestion, Excessive Mucous Production, Change in Mucous Color, Pain with Coughing, Other - Gastrointestinal Gastrointestinal: absent: As Per HPI, Abdominal Pain, Belching, Bloating, Change in Bowel Habits, Change in Stool Character, Coffee Ground Emesis, Constipation, Cramping, Diarrhea, Dyspepsia, Dysphagia, Early Satiety, Excessive Flatus, Fecal Incontinence, Heartburn, Hematemesis, Hematochezia, Loose Stools, Melena, Nausea, Odynophagia, Temesmus, Vomiting, Other - Genitourinary Genitourinary: As Per HPI - Reproductive: Female Reproductive:Female: absent: As Per HPI, Amenorrhea, Amenorrhea/ Control, Currently Menstual, Cycle <21 Days, Cycle >35 Days, Cycle Variable, Menses 1-7 Days, Menses >/= 8 Days, Menses Variable, Cycle > 4 Weeks Between, No Menses for 6 Months, Heavy Menses, Light Menses, Normal Menses, Spotting Between Cycles, S/P Hysterectomy, Menopausal, Post Menopausal, Premenarche, Abnormal Vaginal Bleeding, Dysmenorrhea, Dyspareunia, Genital Lesions, Genital Pruritis, Pelvic Pain, Prolapse Symptoms, Sexual Dysfunction, Vaginal Discharge, Vaginal Dryness, Vaginal Odor, Vaginal Pruritis, Other - Menstruation Menstruation: absent: As Per HPI, Amenorrhea, Amenorrhea/ Control, Currently Menstual, Cycle <21 Days, Cycle >35 Days, Cycle Variable, Menses 1-7 Days, Menses >/= 8 Days, Menses Variable, Cycle > 4 Weeks Between, No Menses for 6 Months, Heavy Menses, Light Menses, Normal Menses, Spotting Between Cycles, S/P Hysterectomy, Menopausal, Post Menopausal, Premenarche, Abnormal Vaginal Bleeding, Dysmenorrhea, Other - Musculoskeletal Musculoskeletal: absent: As Per HPI, Abnormal Gait, Arthralgias, Atrophy, Back Pain, Deformity, Joint Swelling, Limited Range of Motion, Loss of Height, Muscle Cramps, Muscle Weakness, Myalgias, Neck Pain, Numbness, Radiating Pain into Limb, Stiffness, Tingling, Other - Integumentary Integumentary: absent: As Per HPI, Acne, Alopecia, Bleeding Lesions, Change in Hair, Change in Nails, Change in Pigmentation, Changing Lesions, Dry Skin, Erythema, Furuncle, Hirsutism, Lesions, New Lesions, Non-Healing Lesions, Photosensitivity, Pruritus, Rash, Skin Pain, Skin Ulcer, Sores, Striae, Swelling, Unusual Bruising, Wounds, Jaundice, Other - Neurological Neurological: absent: As Per HPI, Abnormal Gait, Abnormal Hearing, Abnormal Mov ements, Abnormal Speech, Behavioral Changes, Burning Sensations, Confusion, Convulsions, Disequilibrium, Dizziness, Numbness, Focal Weakness, Frequent Falls, Headaches, Lack of Coordination, Loss of Vision, Memory Loss, Paresthesias, Radicular Pain, Restless Legs, Sensory Deficit, Syncope, Tingling, Tremor, Vertigo, Weakness, Other Visual Disturbances, Other - Psychiatric Psychiatric: absent: As Per HPI, Abnormal Sleep Pattern, Anhedonia, Anxiety, Auditory Hallucinations, Behavioral Changes, Change in Appetite, Change in Libido, Confusion, Depression, Difficulty Concentrating, Hallucinations, Homicidal Ideation, Hopelessness, Irritability, Memory Loss, Mood Swings, Panic Attacks, Paranoia, Suicidal Ideation, Visual Hallucinations, Tactile Hallucinations, Other - Endocrine Endocrine: absent: As Per HPI, Change in Body Appearance, Change in Libido, Cold Intolorance, Deepening of Voice, Excessive Sweating, Fatigue, Flushing, Heat Intolorance, Increase in Ring/Shoe/Hat Size, Palpitations, Polydipsia, Polyphagia, Polyuria, Other Review of Systems - Review of Systems All systems: reviewed and no additional remarkable complaints except - Constitutional Constitutional: As Per HPI - EENT Eyes: absent: As Per HPI, Blind Spots, Blurred Vision, Change in Vision, Decrea sed Night Vision, Diplopia, Discharge, Dry Eye, Exophthalmos, Floaters, Irritation, Itchy Eyes, Loss of Peripheral Vision, Pain, Photophobia, Requires Corrective Lenses, Sees Flashes, Spots in Vision, Tunnel Vision, Other Visual Disturbances, Loss of Vision, Other Ears: absent: As Per HPI, Decreased Hearing, Ear Discharge, Ear Pain, Tinnitus, Abnormal Hearing, Disequilibrium, Dizziness, Other Nose/Mouth/Throat: absent: As Per HPI, Epistaxis, Nasal Congestion, Nasal Discharge, Nasal Obstruction, Nasal Trauma, Nose Pain, Post Nasal Drip, Sinus Pa in, Sinus Pressure, Bleeding Gums, Change in Voice, Dental Pain, Dry Mouth, Dysphagia, Halitosis, Hoarsness, Lip Swelling, Mouth Lesions, Mouth Pain, Odynophagia, Sore Throat, Throat Swelling, Tongue Swelling, Facial Pain, Neck Pain, Neck Mass, Other - Breasts Breasts: absent: As Per HPI, Change in Shape, Mass, Pain, Nipple Discharge, Nipple Inversion, Skin Changes, Swelling, Other - Cardiovascular Cardiovascular: As Per HPI - Respiratory Respiratory: As Per HPI, Cough, Dyspnea. absent: Hemoptysis - Gastrointestinal Gastrointestinal: absent: As Per HPI, Abdominal Pain, Belching, Bloating, Change in Bowel Habits, Change in Stool Character, Coffee Ground Emesis, Constipation, Cramping, Diarrhea, Dyspepsia, Dysphagia, Early Satiety, Excessive Flatus, Fecal Incontinence, Heartburn, Hematemesis, Hematochezia, Loose Stools, Melena, Nause a, Odynophagia, Temesmus, Vomiting, Other - Genitourinary Genitourinary: absent: As Per HPI, Change in Urinary Stream, Difficulty Urinating, Dysuria, Flank Pain, Hematuria, Pyuria, Nocturia, Urinary Incontinence, Urinary Frequency, Urinary Hesitance, Urinary Urgency, Voiding Freq/Small Amts, Freq UTI, Hx Renal/Bladder Calculi, Hx /Renal Surgery, Bladder Distension, Other - Reproductive: Female Reproductive:Female: absent: As Per HPI, Amenorrhea, Amenorrhea/ Control, Currently Menstual, Cycle <21 Days, Cycle >35 Days, Cycle Variable, Menses 1-7 Days, Menses >/= 8 Days, Menses Variable, Cycle > 4 Weeks Between, No Menses for 6 Months, Heavy Menses, Light Menses, Normal Menses, Spotting Between Cycles, S/P Hysterectomy, Menopausal, Post Menopausal, Premenarche, Abnormal Vaginal Bleeding, Dysmenorrhea, Dyspareunia, Genital Lesions, Genital Pruritis, Pelvic Pain, Prolapse Symptoms, Sexual Dysfunction, Vaginal Discharge, Vaginal Dryness, Vaginal Odor, Vaginal Pruritis, Other - Menstruation Menstruation: absent: As Per HPI, Amenorrhea, Amenorrhea/ Control, Curre ntly Menstual, Cycle <21 Days, Cycle >35 Days, Cycle Variable, Menses 1-7 Days, Menses >/= 8 Days, Menses Variable, Cycle > 4 Weeks Between, No Menses for 6 Months, Heavy Menses, Light Menses, Normal Menses, Spotting Between Cycles, S/P Hysterectomy, Menopausal, Post Menopausal, Premenarche, Abnormal Vaginal Bleeding, Dysmenorrhea, Other - Musculoskeletal Musculoskeletal: absent: As Per HPI, Abnormal Gait, Arthralgias, Atrophy, Back Pain, Deformity, Joint Swelling, Limited Range of Motion, Loss of Height, Muscle Cramps, Muscle Weakness, Myalgias, Neck Pain, Numbness, Radiating Pain into Limb, Stiffness, Tingling, Other - Integumentary Integumentary: absent: As Per HPI, Acne, Alopecia, Bleeding Lesions, Change in Hair, Change in Nails, Change in Pigmentation, Changing Lesions, Dry Skin, Erythema, Furuncle, Hirsutism, Lesions, New Lesions, Non-Healing Lesions, Photosensitivity, Pruritus, Rash, Skin Pain, Skin Ulcer, Sores, Striae, Swelling, Unusual Bruising, Wounds, Jaundice, Other - Neurological Neurological: absent: As Per HPI, Abnormal Gait, Abnormal Hearing, Abnormal Movements, Abnormal Speech, Behavioral Changes, Burning Sensations, Confusion, Convulsions, Disequilibrium, Dizziness, Numbness, Focal Weakness, Frequent Falls, Headaches, Lack of Coordination, Loss of Vision, Memory Loss, Paresthesias, Radicular Pain, Restless Legs, Sensory Deficit, Syncope, Tingling, Tremor, Vertigo, Weakness, Other Visual Disturbances, Other - Psychiatric Psychiatric: absent: As Per HPI, Abnormal Sleep Pattern, Anhedonia, Anxiety, Aud itory Hallucinations, Behavioral Changes, Change in Appetite, Change in Libido, Confusion, Depression, Difficulty Concentrating, Hallucinations, Homicidal Ideation, Hopelessness, Irritability, Memory Loss, Mood Swings, Panic Attacks, Paranoia, Suicidal Ideation, Visual Hallucinations, Tactile Hallucinations, Other - Endocrine Endocrine: absent: As Per HPI, Change in Body Appearance, Change in Libido, Cold Intolorance, Deepening of Voice, Excessive Sweating, Fatigue, Flushing, Heat Intolorance, Increase in Ring/Shoe/Hat Size, Palpitations, Polydipsia, Poly phagia, Polyuria, Other - Hematologic/Lymphatic Hematologic: absent: As Per HPI, Easy Bleeding, Easy Bruising, Lymphadenopathy, Other Past Patient History - Infectious Disease Hx of Infectious Diseases: None - Past Medical History & Family History Past Medical History?: Yes - Past Social History Smoking Status: Former Smoker - CARDIAC Hx Cardiac Disorders: Yes Hx Atrial Fibrillation: Yes Hx Cardia Arrhythmia: Yes Hx Congestive Heart Failure: Yes Hx Hypercholesterolemia: Yes Hx Hypertension: Yes - PULMONARY Hx Respiratory Disorders: Yes Hx Chronic Obstructive Pulmonary Disease (COPD): Yes - NEUROLOGICAL Hx Neurological Disorder: No - HEENT Hx HEENT Problems: Yes Hx Cataracts: Yes (bilateral) - RENAL Hx Chronic Kidney Disease: Yes Type of Dialysis Access: HD Date of Last Dialysis Treatment: 06/24/18 Hx Kidney Stones: No Hx Neurogenic Bladder: No Hx Pyelonephritis: No Hx Renal (Kidney) Cancer: No Hx Renal Failure: Yes Other/Comment: HD M-W- @ [facility] - ENDOCRINE/METABOLIC Hx Endocrine Disorders: Yes Hx Diabetes Mellitus Type 1: Yes Hx Diabetes Mellitus Type 2: Yes Hx Hypothyroidism: Yes - HEMATOLOGICAL/ONCOLOGICAL Hx Blood Disorders: Yes Hx Anemia: Yes Other/Comment: Multiple Myeloma - INTEGUMENTARY Hx Dermatological Problems: No Hx Basil Cell: No Hx Padilla: No Hx Cellulitis: No Hx Eczema: No Hx Melanoma: No Hx Squamous Cell: No - MUSCULOSKELETAL/RHEUMATOLOGICAL Hx Musculoskeletal Disorders: Yes Hx Arthritis: Yes Hx Falls: No - GASTROINTESTINAL Hx Gastrointestinal Disorders: Yes Hx Hemorrhoids: Yes - GENITOURINARY/GYNECOLOGICAL Hx Genitourinary Disorders: No - PSYCHIATRIC Hx Psychophysiologic Disorder: No Hx Substance Use: No - SURGICAL HISTORY Hx Surgeries: Yes Hx Arteriovenous Shunt: Yes (LEFT ARM AV ,permacath) Hx Vascular Access Device: Yes (perma cath elaina cath) - ANESTHESIA Hx Anesthesia: Yes Hx Anesthesia Reactions: No Hx Malignant Hyperthermia: No Has any member of the family had a problem w/ anesthesia?: No Meds Allergies/Adverse Reactions: Allergies Allergy/AdvReac Type Severity Reaction Status Date / Time No Known Allergies Allergy Verified 06/25/18 14:25 - Medications Medications: Current Medications Acetaminophen (Tylenol 325mg Tab) 650 mg PO Q6 PRN PRN Reason: Fever >100.4 F Last Admin: 06/26/18 18:19 Dose: 650 mg Albuterol/Ipratropium (Duoneb 3 Mg/0.5 Mg (3 Ml) Ud) 3 ml IH RQ6 [facility] Last Admin: 06/27/18 08:10 Dose: 3 ml Apixaban (Eliquis) 2.5 mg PO BID [facility] Last Admin: 06/27/18 17:26 Dose: 2.5 mg Budesonide (Pulmicort Respules) 1 mg IH RBID [facility] Calcium Acetate (Phoslo) 667 mg PO TID [facility] Last Admin: 06/27/18 17:26 Dose: 667 mg Epoetin Eddie (Procrit) 10,000 unit IV MWF [facility] Famotidine (Pepcid) 20 mg PO DAILY [facility] Last Admin: 06/27/18 09:09 Dose: 20 mg Ferrous Sulfate (Feosol) 325 mg PO DAILY [facility] Last Admin: 06/27/18 09:09 Dose: 325 mg Fluticasone/Vilanterol (Breo Ellipta 200-25 Mcg Inh) 1 puff INH RQD [facility] Last Admin: 06/26/18 07:40 Dose: Not Given Glipizide (Glucotrol) 10 mg PO ACBD [facility] Last Admin: 06/27/18 17:29 Dose: 10 mg Guaifenesin/Dextromethorphan (Robitussin Dm) 10 ml PO Q4H PRN PRN Reason: Cough and congestion Last Admin: 06/27/18 14:09 Dose: 10 ml Diltiazem HCl 125 mg/ Sodium (Chloride) 125 mls @ 5 mls/hr IV .Q24H [facility]IB[facility]; Protocol Last Titration: 06/26/18 22:15 Dose: 0 mg/hr, 0 mls/hr Ceftriaxone Sodium 1 gm/ (Sodium Chloride) 100 mls @ 100 mls/hr IVPB DAILY [facility]; Protocol Last Admin: 06/27/18 09:11 Dose: 100 mls/hr Azithromycin 500 mg/ Sodium (Chloride) 250 mls @ 250 mls/hr IVPB DAILY@1100 [facility]; Protocol Last Admin: 06/27/18 10:14 Dose: 250 mls/hr Amiodarone HCl 900 mg/ (Dextrose) 500 mls @ 16.67 mls/hr IV .Q24H ONE; Protocol Stop: 06/28/18 03:14 Last Admin: 06/27/18 03:15 Dose: 16.67 mls/hr Insulin Aspart (Novolog) 10 unit SC ONCE [facility] Insulin Aspart (Novolog Mix 70/30 (70/30 Units/Ml)) 20 units SC ACBD [facility] Last Admin: 06/27/18 17:00 Dose: 20 units Insulin Aspart (Novolog) 0 unit SC ACHS [facility]; Protocol Last Admin: 06/27/18 17:23 Dose: 10 units Insulin Detemir (Levemir) 12 unit SC Q12H [facility] Last Admin: 06/27/18 12:00 Dose: 12 units Levothyroxine Sodium (Synthroid) 150 mcg PO DAILY@0630 [facility] Last Admin: 06/27/18 06:38 Dose: 150 mcg Methylprednisolone (Solu-Medrol) 40 mg IVP Q8H [facility] Last Admin: 06/27/18 14:09 Dose: 40 mg Metoprolol Tartrate (Lopressor) 25 mg PO BID [facility] Last Admin: 06/27/18 17:26 Dose: 25 mg Rosuvastatin Calcium (Crestor) 5 mg PO HS [facility] Last Admin: 06/26/18 22:35 Dose: 5 mg Tiotropium [place] (Spiriva) 18 mcg INH RQ24 [facility] Last Admin: 06/26/18 07:40 Dose: Not Given Physical Exam - Constitutional Appears: Non-toxic, No Acute Distress, Chronically Ill - Head Exam Head Exam: NORMOCEPHALIC - Eye Exam Eye Exam: absent: Scleral icterus Pupil Exam: NORMAL ACCOMODATION - ENT Exam ENT Exam: Mucous Membranes Dry, Normal External Ear Exam - Neck Exam Neck exam: Negative for: Lymphadenopathy - Respiratory Exam Respiratory Exam: Decreased Breath Sounds, Prolonged Expiratory Phase, Rhonchi - Cardiovascular Exam Cardiovascular Exam: REGULAR RHYTHM, +S1, +S2 - GI/Abdominal Exam GI & Abdominal Exam: Diminished Bowel Sounds, Soft. absent: Tenderness - Rectal Exam Rectal Exam: Deferred - Exam Exam: NORMAL INSPECTION - Extremities Exam Extremities exam: Negative for: pedal edema - Back Exam Back exam: absent: CVA tenderness (L), CVA tenderness (R) - Neurological Exam Neurological exam: Alert, CN II-XII Intact, Oriented x3, Reflexes Normal - Psychiatric Exam Psychiatric exam: Normal Mood Results - Vital Signs Recent Vital Signs: Last Vital Signs Temp 98.9 F 06/27/18 16:00 Pulse 68 06/27/18 18:00 Resp 20 06/27/18 18:00 BP 142/58 L 06/27/18 18:00 Pulse Ox 98 06/27/18 18:00 - Labs Result Diagrams: 06/28/18 06:10 06/28/18 06:10 Labs: Laboratory Results - last 24 hr 06/26/18 06/27/18 06/27/18 17:04 06:19 06:19 WBC 11.3 H RBC 3.00 L Hgb 8.2 L Hct 27.5 L MCV 91.8 D MCH 27.3 MCHC 29.7 L RDW 17.6 H Plt Count 207 MPV 11.3 Neut % (Auto) 89.3 H Lymph % (Auto) 8.1 L [place] % (Auto) 2.5 Eos % (Auto) 0.0 Baso % (Auto) 0.1 Neut # (Auto) 10.1 H Lymph # (Auto) 0.9 L [place] # (Auto) 0.3 Eos # (Auto) 0.0 Baso # (Auto) 0.0 Neutrophils % (Manual) 93 H Lymphocytes % (Manual) 5 L Monocytes % (Manual) 2 Platelet Estimate Normal Polychromasia Slight Hypochromasia (manual) Slight Anisocytosis (manual) Slight Sodium 135 Potassium 4.9 Chloride 96 L Carbon Dioxide 31 H Anion Gap 13 BUN 36 H Creatinine 2.7 H Est GFR ( Amer) 20 Est GFR (Non-Af Amer) 17 POC Glucose (mg/dL) 403 H* Random Glucose 467 H* Calcium 8.1 L Phosphorus 4.3 Magnesium 2.0 Total Bilirubin 0.6 AST 61 H D ALT 51 Alkaline Phosphatase 59 Total Creatine Kinase CK-MB (Mass) Troponin I Total Protein 6.0 L Albumin 2.8 L Globulin 3.2 Albumin/Globulin Ratio 0.9 L Free T3 pg/mL TSH 3rd Generation 06/27/18 06:19 WBC RBC Hgb Hct MCV MCH MCHC RDW Plt Count MPV Neut % (Auto) Lymph % (Auto) [place] % (Auto) Eos % (Auto) Baso % (Auto) Neut # (Auto) Lymph # (Auto) [place] # (Auto) Eos # (Auto) Baso # (Auto) Neutrophils % (Manual) Lymphocytes % (Manual) Monocytes % (Manual) Platelet Estimate Polychromasia Hypochromasia (manual) Anisocytosis (manual) Sodium Potassium Chloride Carbon Dioxide Anion Gap BUN Creatinine Est GFR ( Amer) Est GFR (Non-Af Amer) POC Glucose (mg/dL) Random Glucose Calcium Phosphorus Magnesium Total Bilirubin AST ALT Alkaline Phosphatase Total Creatine Kinase < 20 L CK-MB (Mass) 0.82 Troponin I 0.0370 Total Protein Albumin Globulin Albumin/Globulin Ratio Free T3 pg/mL 2.01 L TSH 3rd Generation 0.14 L Assessment & Plan (1) CHF exacerbation Status: Acute (2) Chronic a-fib Status: Acute (3) Dyspnea Status: Acute (4) ESRD (end stage renal disease) on dialysis Status: Acute (5) Uncontrolled diabetes mellitus Status: Acute - Assessment and Plan (Free Text) Assessment: wbc higher on IV steroids denies diarrhea not much sputum production and no fever cont empiric rx cultures so far negative
--- NOTE | 2018-06-28 00:03 | CARD ---
APPROVED REPORT Date of service: 06/27/2018 EKG Measurement Heart [id number] <Conclusion> Normal sinus rhythm Normal ECG
[2018-06-28] MEDS: Albuterol-Ipratrop 3 mg / 0.5 (3 ml) UD IH SCH ×2 (02:29→07:30)
[2018-06-28 06:25] LABS: HEMOGLOBIN 8.4 g/dL (11.0-16.0); LYMPH # 0.7 K/uL (1.0-4.3); LYMPH % 2.1 % (20.0-40.0); MEAN CELL VOLUME 88.3 fL (81.0-99.0); MEAN CORPUSCULAR HEMOGLOBIN 26.8 pg (27.0-31.0); MEAN CORPUSCULAR HGB CONC 30.3 g/dL (33.0-37.0); MONO % 3.1 % (0.0-10.0); NEUT # 30.5 K/uL (1.8-7.0); NEUT % 94.8 % (50.0-75.0); PLATELET COUNT 307 K/uL (130-400); RBC 3.12 Mil/uL (3.80-5.20); RED CELL DISTRIBUTION WIDTH 17.3 % (11.5-14.5); WHITE BLOOD COUNT 32.2 K/uL (4.8-10.8)
[2018-06-28] MEDS: MethylPREDNISolone 40 mg Vial IVP SCH ×3 (06:25→22:10)
[2018-06-28] MEDS: Levothyroxine 150 MCG TAB PO SCH (06:25)
[2018-06-28] MEDS: guaiFENesin DM 200 mg-20 mg/10 ml UD PO PRN ×3 (06:30→22:10)
[2018-06-28 06:51] LABS: ALB/GLOB RATIO 0.9 (1.0-2.1); ALBUMIN 3.1 g/dL (3.5-5.0); CALCIUM 8.9 mg/dl (8.6-10.4)
[2018-06-28] MEDS: Fluticasone-Vilanterol 200/25mcg Diskus INH SCH (07:30)
[2018-06-28] MEDS: Tiotropium 18 mcg Cap For Inhalation INH SCH ×2 (07:30→08:21)
[2018-06-28] MEDS: (Novolog) Insulin Aspart, Recombinant 100 u/ml 10 ml vial SC SCH ×5 (07:30→22:00)
[2018-06-28] MEDS: (Novolog Mix 70/30) Insulin Aspart/Insulin Aspar 100 units/ml SC SCH ×2 (08:04→08:50)
[2018-06-28 08:13] LABS: LYMPHOCYTE 2 % (20-40); MONOCYTE 1 % (0-10); NEUTROPHIL 97 % (50-75); TOTAL CELLS COUNTED 100
[2018-06-28 08:14] LABS: ANISOCYTOSIS SLIGHT; HYPOCHROMIC SLIGHT; PLATELET ESTIMATE NORMAL (NORMAL)
[2018-06-28 08:15] LABS: POLYCHROMIC SLIGHT
[2018-06-28] MEDS ORDERED: EPOETIN ALFA 10,000 UNIT/ML ML IV SCH (09:00)
[2018-06-28] MEDS ORDERED: diltiaZEM 240 mg/24 Hours CD Cap PO SCH (10:00)
[2018-06-28] MEDS: diltiaZEM 240 mg/24 Hours CD Cap PO SCH (10:02)
--- NOTE | 2018-06-28 11:32 | CP.CCUPN ---
<Mandeep Garduno - Last Filed: 06/28/18 17:32> CCU Subjective - Physician Review Subjective (Free Text): ICU Progress Note for Dr. Lorenzo Penn Pt seen and examined at bedside this am. Denies any acute complaints this am. Observed oob to chair today. Denies headache, dizziness, chest pain, sob, n/v /d/c, abd pain, urinary complaints, or other symptoms. No acute events reported overnight by staff. CCU Objective - Vital Signs / Intake & Output Vital Signs (Last 4 hours): Vital Signs Temp Pulse Resp BP Pulse Ox 06/28/18 10:47 90 22 121/57 L 95 06/28/18 10:32 89 29 H 134/45 L 96 06/28/18 10:17 91 H 18 128/54 L 97 06/28/18 10:00 92 H 26 H 133/54 L 96 06/28/18 09:00 90 27 H 134/59 L 95 06/28/18 08:00 98.8 F 87 10 L 131/56 L 95 Intake and Output (Last 8hrs): Intake & Output 06/27/18 06/28/18 06/28/18 22:59 06:59 14:59 Intake Total 553.1 76.7 360 Output Total 50 0 Balance 553.1 26.7 360 Weight 148 lb Intake: Intake, IV Amount 433.1 16.7 Right Antecubital 50.1 16.7 Right Antecubital Y 383.0 0 Oral 120 60 360 Output: Urine 50 0 Urine, Voided 50 0 Other: # Voids Urine, Voided 1 # Bowel Movements 1 - Physical Exam Head: Positive for: Atraumatic, Normocephalic Pupils: Positive for: PERRL Extroacular Muscles: Positive for: EOMI Conjunctiva: Positive for: Normal Neck: Positive for: Normal Range of Motion. Negative for: Meningeal Signs, JVD, Lymphadenopathy Respiratory/Chest: Positive for: Wheezes. Negative for: Respiratory Distress, Accessory Muscle Use Cardiovascular: Positive for: Irregular Rhythm Abdomen: Positive for: Normal Bowel Sounds. Negative for: Tenderness, Distention, Mass/Organomegaly Upper Extremity: Positive for: Normal Inspection, Normal ROM, NORMAL PULSES, Neurovascularly Intact, Capillary Refill < 2s. Negative for: Cyanosis, Edema Lower Extremity: Positive for: Normal Inspection, NORMAL PULSES, Normal ROM, Neurovascularly Intact, Capillary Refill < 2 s. Negative for: Edema, CALF TENDERNESS Neurological: Positive for: GCS=15, CN II-XII Intact, Speech Normal Skin: Positive for: Warm, Dry, Normal Color Psychiatric: Positive for: Alert, Oriented x 3 - Medications Active Medications: Active Medications Generic Name Dose Route Start Last Admin Trade Name Freq PRN Reason Stop Dose Admin Acetaminophen 650 mg 06/26/18 16:06 06/26/18 18:19 Tylenol 325mg Tab PO 650 mg Q6 PRN Administration Fever >100.4 F Apixaban 2.5 mg 06/25/18 23:00 06/28/18 09:59 Eliquis PO 2.5 mg BID MARIBETH Administration Budesonide 1 mg 06/26/18 10:00 Pulmicort Respules IH RBID [facility] Calcium Acetate 667 mg 06/26/18 10:00 06/28/18 09:59 Phoslo PO 667 mg TID MARIBETH Administration Diltiazem HCl 240 mg 06/28/18 10:00 06/28/18 10:02 Cardizem Cd PO 240 mg DAILY MARIBETH Administration Epoetin Eddie 10,000 unit 06/28/18 09:00 Procrit IV MWF [facility] Famotidine 20 mg 06/26/18 10:00 06/28/18 09:59 Pepcid PO 20 mg DAILY MARIBETH Administration Ferrous Sulfate 325 mg 06/26/18 10:00 06/28/18 10:00 Feosol PO 325 mg DAILY MARIBETH Administration Fluticasone/Vilanterol 1 puff 06/26/18 08:00 06/28/18 07:30 Breo Ellipta 200-25 Mcg Inh INH 1 puff RQD MARIBETH Administration Glipizide 10 mg 06/26/18 07:30 06/28/18 08:04 Glucotrol PO 10 mg ACBD [facility] Administration Guaifenesin/Dextromethorphan 10 ml 06/26/18 16:07 06/28/18 06:30 Robitussin Dm PO 10 ml Q4H PRN Administration Cough and congestion Azithromycin 500 mg/ Sodium 250 mls @ 250 mls/hr 06/27/18 11:00 06/27/18 10:14 Chloride IVPB 250 mls/hr DAILY@1100 MARIBETH Administration Protocol Cefepime HCl 1 gm/ Dextrose 50 mls @ 100 mls/hr 06/27/18 19:00 06/27/18 21:30 IVPB 100 mls/hr Q24H MARIBETH Administration Protocol Insulin Aspart 10 unit 06/25/18 23:00 Novolog SC ONCE MARIBETH Insulin Aspart 0 unit 06/26/18 07:30 06/28/18 07:30 Novolog SC Not Given ACHS MARIBETH Protocol Insulin Detemir 12 unit 06/25/18 23:00 06/27/18 23:00 Levemir SC Not Given Q12H MARIBETH Levothyroxine Sodium 150 mcg 06/26/18 06:30 06/28/18 06:25 Synthroid PO 150 mcg DAILY@0630 MARIBETH Administration Methylprednisolone 40 mg 06/27/18 06:00 06/28/18 06:25 Solu-Medrol IVP 40 mg Q8H MARIBETH Administration Rosuvastatin Calcium 5 mg 06/25/18 23:00 06/27/18 21:30 Crestor PO 5 mg HS MARIBETH Administration Tiotropium Jameson 18 mcg 06/26/18 08:00 06/28/18 08:21 Spiriva INH Not Given RQ24 [facility] - Patient Studies Lab Studies: Microbiology Studies 06/27/18 04:00 Blood Culture - Preliminary Blood NO GROWTH AFTER 24 HOURS 06/27/18 04:00 Blood Culture - Preliminary Blood NO GROWTH AFTER 24 HOURS 06/26/18 17:51 Blood Culture - Preliminary Blood NO GROWTH AFTER 24 HOURS 06/26/18 17:51 Blood Culture - Preliminary Blood NO GROWTH AFTER 24 HOURS 06/26/18 20:48 MRSA Culture (Admit) - Final Nose MRSA NOT DETECTED Lab Studies 06/28/18 06/28/18 06/28/18 Range/Units 06:10 06:10 06:10 WBC (4.8-10.8) K/uL RBC (3.80-5.20) Mil/uL Hgb (11.0-16.0) g/dL Hct (34.0-47.0) % MCV (81.0-99.0) fL MCH (27.0-31.0) pg MCHC (33.0-37.0) g/dL RDW (11.5-14.5) % Plt Count (130-400) K/uL MPV (7.2-11.7) fL Neut % (Auto) (50.0-75.0) % Lymph % (Auto) (20.0-40.0) % Kimball % (Auto) (0.0-10.0) % Eos % (Auto) (0.0-4.0) % Baso % (Auto) (0.0-2.0) % Neut # (Auto) (1.8-7.0) K/uL Lymph # (Auto) (1.0-4.3) K/uL Kimball # (Auto) (0.0-0.8) K/uL Eos # (Auto) (0.0-0.7) K/uL Baso # (Auto) (0.0-0.2) K/uL Neutrophils % (Manual) (50-75) % Lymphocytes % (Manual) (20-40) % Monocytes % (Manual) (0-10) % Platelet Estimate (NORMAL) Polychromasia Hypochromasia (manual) Anisocytosis (manual) Sodium (132-148) mmol/L Potassium (3.6-5.2) mmol/L Chloride (98-107) mmol/L Carbon Dioxide (22-30) mmol/L Anion Gap (10-20) BUN (7-17) mg/dL Creatinine (0.7-1.2) mg/dL Est GFR ( Amer) Est GFR (Non-Af Amer) Random Glucose (65-105) mg/dL Hemoglobin A1c 8.5 H D (4.2-6.5) % Calcium (8.6-10.4) mg/dl Phosphorus (2.5-4.5) mg/dL Magnesium (1.6-2.3) mg/dL Total Bilirubin (0.2-1.3) mg/dL AST (14-36) U/L ALT (9-52) U/L Alkaline Phosphatase (38-126) U/L Troponin I (0.00-0.120) ng/mL Total Protein (6.3-8.3) g/dL Albumin (3.5-5.0) g/dL Globulin (2.2-3.9) gm/dL Albumin/Globulin Ratio (1.0-2.1) Procalcitonin 0.77 H (0.19-0.49) NG/ML Free T4 3.23 H (0.78-2.19) ng/dL TSH 3rd Generation (0.46-4.68) mIU/L Influenza Typ A,B (EIA) (NEGATIVE) 06/28/18 06/28/18 06/28/18 Range/Units 06:10 06:10 05:40 WBC 32.2 H D (4.8-10.8) K/uL RBC 3.12 L (3.80-5.20) Mil/uL Hgb 8.4 L (11.0-16.0) g/dL Hct 27.6 L (34.0-47.0) % MCV 88.3 D (81.0-99.0) fL MCH 26.8 L (27.0-31.0) pg MCHC 30.3 L (33.0-37.0) g/dL RDW 17.3 H (11.5-14.5) % Plt Count 307 D (130-400) K/uL MPV 11.0 (7.2-11.7) fL Neut % (Auto) 94.8 H (50.0-75.0) % Lymph % (Auto) 2.1 L (20.0-40.0) % Kimball % (Auto) 3.1 (0.0-10.0) % Eos % (Auto) 0.0 (0.0-4.0) % Baso % (Auto) 0.0 (0.0-2.0) % Neut # (Auto) 30.5 H (1.8-7.0) K/uL Lymph # (Auto) 0.7 L (1.0-4.3) K/uL Kimball # (Auto) 1.0 H (0.0-0.8) K/uL Eos # (Auto) 0.0 (0.0-0.7) K/uL Baso # (Auto) 0.0 (0.0-0.2) K/uL Neutrophils % (Manual) 97 H (50-75) % Lymphocytes % (Manual) 2 L (20-40) % Monocytes % (Manual) 1 (0-10) % Platelet Estimate Normal (NORMAL) Polychromasia Slight Hypochromasia (manual) Slight Anisocytosis (manual) Slight Sodium 138 (132-148) mmol/L Potassium 4.8 (3.6-5.2) mmol/L Chloride 100 (98-107) mmol/L Carbon Dioxide 25 (22-30) mmol/L Anion Gap 17 (10-20) BUN 50 H (7-17) mg/dL Creatinine 4.0 H (0.7-1.2) mg/dL Est GFR ( Amer) 13 Est GFR (Non-Af Amer) 11 Random Glucose 65 D (65-105) mg/dL Hemoglobin A1c (4.2-6.5) % Calcium 8.9 (8.6-10.4) mg/dl Phosphorus 4.7 H (2.5-4.5) mg/dL Magnesium 2.1 (1.6-2.3) mg/dL Total Bilirubin 0.6 (0.2-1.3) mg/dL AST 45 H D (14-36) U/L ALT 38 (9-52) U/L Alkaline Phosphatase 64 (38-126) U/L Troponin I (0.00-0.120) ng/mL Total Protein 6.8 (6.3-8.3) g/dL Albumin 3.1 L (3.5-5.0) g/dL Globulin 3.6 (2.2-3.9) gm/dL Albumin/Globulin Ratio 0.9 L (1.0-2.1) Procalcitonin (0.19-0.49) NG/ML Free T4 (0.78-2.19) ng/dL TSH 3rd Generation 0.09 L (0.46-4.68) mIU/L Influenza Typ A,B (EIA) Negative for flu a/b (NEGATIVE) 06/27/18 Range/Units 06:19 WBC (4.8-10.8) K/uL RBC (3.80-5.20) Mil/uL Hgb (11.0-16.0) g/dL Hct (34.0-47.0) % MCV (81.0-99.0) fL MCH (27.0-31.0) pg MCHC (33.0-37.0) g/dL RDW (11.5-14.5) % Plt Count (130-400) K/uL MPV (7.2-11.7) fL Neut % (Auto) (50.0-75.0) % Lymph % (Auto) (20.0-40.0) % Kimball % (Auto) (0.0-10.0) % Eos % (Auto) (0.0-4.0) % Baso % (Auto) (0.0-2.0) % Neut # (Auto) (1.8-7.0) K/uL Lymph # (Auto) (1.0-4.3) K/uL Kimball # (Auto) (0.0-0.8) K/uL Eos # (Auto) (0.0-0.7) K/uL Baso # (Auto) (0.0-0.2) K/uL Neutrophils % (Manual) (50-75) % Lymphocytes % (Manual) (20-40) % Monocytes % (Manual) (0-10) % Platelet Estimate (NORMAL) Polychromasia Hypochromasia (manual) Anisocytosis (manual) Sodium (132-148) mmol/L Potassium (3.6-5.2) mmol/L Chloride (98-107) mmol/L Carbon Dioxide (22-30) mmol/L Anion Gap (10-20) BUN (7-17) mg/dL Creatinine (0.7-1.2) mg/dL Est GFR ( Amer) Est GFR (Non-Af Amer) Random Glucose (65-105) mg/dL Hemoglobin A1c (4.2-6.5) % Calcium (8.6-10.4) mg/dl Phosphorus (2.5-4.5) mg/dL Magnesium (1.6-2.3) mg/dL Total Bilirubin (0.2-1.3) mg/dL AST (14-36) U/L ALT (9-52) U/L Alkaline Phosphatase (38-126) U/L Troponin I 0.0370 (0.00-0.120) ng/mL Total Protein (6.3-8.3) g/dL Albumin (3.5-5.0) g/dL Globulin (2.2-3.9) gm/dL Albumin/Globulin Ratio (1.0-2.1) Procalcitonin (0.19-0.49) NG/ML Free T4 (0.78-2.19) ng/dL TSH 3rd Generation (0.46-4.68) mIU/L Influenza Typ A,B (EIA) (NEGATIVE) Laboratory Results - last 24 hr 06/27/18 06/28/18 06/28/18 06:19 05:40 06:10 WBC RBC Hgb Hct MCV MCH MCHC RDW Plt Count MPV Neut % (Auto) Lymph % (Auto) Kimball % (Auto) Eos % (Auto) Baso % (Auto) Neut # (Auto) Lymph # (Auto) Kimball # (Auto) Eos # (Auto) Baso # (Auto) Neutrophils % (Manual) Lymphocytes % (Manual) Monocytes % (Manual) Platelet Estimate Polychromasia Hypochromasia (manual) Anisocytosis (manual) Sodium 138 Potassium 4.8 Chloride 100 Carbon Dioxide 25 Anion Gap 17 BUN 50 H Creatinine 4.0 H Est GFR ( Amer) 13 Est GFR (Non-Af Amer) 11 Random Glucose 65 D Hemoglobin A1c Calcium 8.9 Phosphorus 4.7 H Magnesium 2.1 Total Bilirubin 0.6 AST 45 H D ALT 38 Alkaline Phosphatase 64 Troponin I 0.0370 Total Protein 6.8 Albumin 3.1 L Globulin 3.6 Albumin/Globulin Ratio 0.9 L Procalcitonin Free T4 TSH 3rd Generation 0.09 L Influenza Typ A,B (EIA) Negative for flu a/b 06/28/18 06/28/18 06/28/18 06:10 06:10 06:10 WBC 32.2 H D RBC 3.12 L Hgb 8.4 L Hct 27.6 L MCV 88.3 D MCH 26.8 L MCHC 30.3 L RDW 17.3 H Plt Count 307 D MPV 11.0 Neut % (Auto) 94.8 H Lymph % (Auto) 2.1 L Kimball % (Auto) 3.1 Eos % (Auto) 0.0 Baso % (Auto) 0.0 Neut # (Auto) 30.5 H Lymph # (Auto) 0.7 L Kimball # (Auto) 1.0 H Eos # (Auto) 0.0 Baso # (Auto) 0.0 Neutrophils % (Manual) 97 H Lymphocytes % (Manual) 2 L Monocytes % (Manual) 1 Platelet Estimate Normal Polychromasia Slight Hypochromasia (manual) Slight Anisocytosis (manual) Slight Sodium Potassium Chloride Carbon Dioxide Anion Gap BUN Creatinine Est GFR ( Amer) Est GFR (Non-Af Amer) Random Glucose Hemoglobin A1c 8.5 H D Calcium Phosphorus Magnesium Total Bilirubin AST ALT Alkaline Phosphatase Troponin I Total Protein Albumin Globulin Albumin/Globulin Ratio Procalcitonin Free T4 3.23 H TSH 3rd Generation Influenza Typ A,B (EIA) 06/28/18 06:10 WBC RBC Hgb Hct MCV MCH MCHC RDW Plt Count MPV Neut % (Auto) Lymph % (Auto) Kimball % (Auto) Eos % (Auto) Baso % (Auto) Neut # (Auto) Lymph # (Auto) Kimball # (Auto) Eos # (Auto) Baso # (Auto) Neutrophils % (Manual) Lymphocytes % (Manual) Monocytes % (Manual) Platelet Estimate Polychromasia Hypochromasia (manual) Anisocytosis (manual) Sodium Potassium Chloride Carbon Dioxide Anion Gap BUN Creatinine Est GFR ( Amer) Est GFR (Non-Af Amer) Random Glucose Hemoglobin A1c Calcium Phosphorus Magnesium Total Bilirubin AST ALT Alkaline Phosphatase Troponin I Total Protein Albumin Globulin Albumin/Globulin Ratio Procalcitonin 0.77 H Free T4 TSH 3rd Generation Influenza Typ A,B (EIA) Radiology Impressions: Radiology Impressions Chest X-Ray 06/26/18 15:59 IMPRESSION: The prior left inferolateral pleural like based pathology opacity is no longer seen. No pleural parenchymal loculation or contiguous pleural based infiltrate here is suspect. No interval consolidation seen. Increase conspicuity of left medial basal bronchiectasis-as above. Cardiomegaly with similar mild pulmonary venous congestion suspect. Atherosclerotic vascular disease-as before. Medi port tip right atrium as before. Fingerstick Blood Sugar Results: 102 Review of Systems - Constitutional Constitutional: absent: Fever, Chills, Sweats - Cardiovascular Cardiovascular: absent: Chest Pain, Dyspnea on Exertion, Edema, Leg Edema, Palpitations, Pedal Edema - Respiratory Respiratory: Wheezing. absent: Cough, Dyspnea - Gastrointestinal Gastrointestinal: absent: Abdominal Pain, Constipation, Diarrhea, Nausea, Vomiting Critical Care Progress Note - Nutrition Nutrition: Nutrition Category Date Time Status Renal Diet [DIET] Diets 06/26/18 Breakfast Active Assessment/Plan - Assessment and Plan (Free Text) Assessment: 83 y o female with PMhx HTN, hypothyroidism, A-fib, DM, anemia, multiple myeloma, CHF, and COPD who initially presented with hyperglycemia and admitted to medical service for further management. Rapid response was called on 06/26/18 due to tachycardia 2/2 pt arising to seated position for dinner. Was s/p HD and did not receive all meds after returning from HD. Pt was given IV Lopressor, Cardizem, without improvement in HR, was started on IV Cardizem drip for rate control. EKG at that time demonstrated A-fib with RVR. Currently being monitored in ICU. Amiodarone and Cardizem drips stopped. Plan: Neuro: -AAOx3, no gross deficits on exam, will cont to monitor Cardio: -Afib with RVR S/p BOX ICER on 06/26/18, EKG during BOX ICER demonstrated Afib with RVR, repeat EKG this am demonstrates NSR Cardizem drip d/c'd, started on Cardizem 240 mg PO daily Amiodarone drip d/c'd S/p Cardizem and Digoxin IVPs without improvement in HR C/w home med Eliquis 2.5 mg PO bid Lopressor 25 mg PO bid held for wheezing on exam Cardiology consulted (Dr. Gold), recs appreciated Trop 0.03 -Hx HTN, CHF BNP elevated on admission -Vitals stable, cont to monitor Pulm: -Hx COPD C/w Duonebs, Pulmicort, Spiriva, Fluticasone -Robitussin prn for cough -Repeat CXR done during BOX ICER on 06/26: Prior L inferolateral pleural-like based pathology opacity no longer seen. No pleural parenchymal loculation or contiguous pleural-based infiltrate here is suspected. No interval consolidation seen. Increase conspicuity of L medial basal bronchiectasis. Cardiomegaly with similar mild pulmonary venous congestion suspect. Atherosclerotic vascular disease - as before. Medi port tip R atrium as before. -NC at 4L during day time, BiPap at night, cont to monitor -Pulm consulted (Dr. Mai), recs appreciated GI: -Renal diet -Protonix -No acute issues at this time Renal: -Hx ESRD on HD MWF C/w HD while inpatient -Nephro (Dr. Bill) consulted, recs appreciated -EPO started Heme: -H/H 8.4/27.6, stable, cont to monitor -EPO started -Iron studies demonstrate deficiency -Leukocytosis trending down ID: -Leukocytosis trending up -Afebrile -Azithromycin and Cefepime for tx of PNA -Flu swab neg -ID consulted (Dr. Luong), recs appreciated Endo: -Hx hypothyroidism C/w Synthroid 150 mcg daily TSH, T3 levels low, repeat TSH low this am -Hx DM, admitted for hyperglycemia during this current admission Insulin aspart 20 U sc acbd Levemir 12 U sc q12h Glipizide 10 mg PO acbd ISS Fingersticks achs Hypoglycemic protocol A1c 8.5 PPX: -Pepcid, SCD, Eliquis Pt seen, examined with, and plan discussed with Dr. Lorenzo Penn, attending physician. Mandeep Garduno, PGY-1, Publicity Manager <Sandrine Penn - Last Filed: 06/29/18 18:50> CCU Objective - Vital Signs / Intake & Output Vital Signs (Last 4 hours): Vital Signs Temp Pulse Resp BP Pulse Ox 06/29/18 16:00 98.2 F 79 22 138/57 L 96 Intake and Output (Last 8hrs): Intake & Output 06/29/18 06/29/18 06/29/18 06:59 14:59 22:59 Intake Total 60 Output Total 40 Balance 20 Intake: Oral 60 Output: Urine 40 Urine, Voided 40 Other: # Voids Urine, Voided 1 # Bowel Movements 1 - Medications Active Medications: Active Medications Generic Name Dose Route Start Last Admin Trade Name Freq PRN Reason Stop Dose Admin Acetaminophen 650 mg 06/26/18 16:06 06/26/18 18:19 Tylenol 325mg Tab PO 650 mg Q6 PRN Administration Fever >100.4 F Apixaban 2.5 mg 06/25/18 23:00 06/29/18 17:49 Eliquis PO 2.5 mg BID MARIBETH Administration Budesonide 1 mg 06/29/18 14:00 Pulmicort Respules IH RBID MARIBETH Calcium Acetate 667 mg 06/26/18 10:00 06/29/18 17:48 Phoslo PO 667 mg TID MARIBETH Administration Diltiazem HCl 240 mg 06/28/18 10:00 06/29/18 10:42 Cardizem Cd PO 240 mg DAILY MARIBETH Administration Epoetin Eddie 10,000 unit 06/28/18 13:30 06/28/18 13:33 Procrit IV 10,000 unit MWF MARIBETH Administration Famotidine 20 mg 06/26/18 10:00 06/29/18 10:42 Pepcid PO 20 mg DAILY MARIBETH Administration Ferrous Sulfate 325 mg 06/26/18 10:00 06/29/18 10:42 Feosol PO 325 mg DAILY MARIBETH Administration Fluticasone/Vilanterol 1 puff 06/26/18 08:00 06/29/18 07:45 Breo Ellipta 200-25 Mcg Inh INH 1 puff RQD MARIBETH Administration Glipizide 10 mg 06/26/18 07:30 06/29/18 16:48 Glucotrol PO 10 mg ACBD MARIBETH Administration Guaifenesin/Dextromethorphan 10 ml 06/26/18 16:07 06/29/18 17:48 Robitussin Dm PO 10 ml Q4H PRN Administration Cough and congestion Azithromycin 500 mg/ Sodium 250 mls @ 250 mls/hr 06/27/18 11:00 06/29/18 10:42 Chloride IVPB 250 mls/hr DAILY@1100 [facility] Administration Protocol Cefepime HCl 1 gm/ Dextrose 50 mls @ 100 mls/hr 06/27/18 19:00 06/29/18 18:42 IVPB 100 mls/hr Q24H MARIBETH Administration Protocol Insulin Aspart 10 unit 06/25/18 23:00 Novolog SC ONCE MARIBETH Insulin Aspart 0 unit 06/26/18 07:30 06/29/18 16:48 Novolog SC 8 units ACHS [facility] Administration Protocol Insulin Detemir 12 unit 06/25/18 23:00 06/29/18 11:57 Levemir SC 12 units Q12H MARIBETH Administration Levothyroxine Sodium 150 mcg 06/26/18 06:30 06/29/18 06:15 Synthroid PO 150 mcg DAILY@0630 MARIBETH Administration Methylprednisolone 40 mg 06/28/18 22:00 06/29/18 10:43 Solu-Medrol IVP 40 mg Q12 MARIBETH Administration Rosuvastatin Calcium 5 mg 06/25/18 23:00 06/28/18 22:10 Crestor PO 5 mg HS MARIBETH Administration Tiotropium Jameson 18 mcg 06/26/18 08:00 06/29/18 07:45 Spiriva INH 18 mcg RQ24 MARIBETH Administration - Patient Studies Lab Studies: Microbiology Studies 06/26/18 17:51 Blood Culture - Preliminary Blood NO GROWTH AFTER 3 DAYS 06/26/18 17:51 Blood Culture - Preliminary Blood NO GROWTH AFTER 3 DAYS 06/29/18 14:15 Gram Stain - Final Sputum 06/27/18 04:00 Blood Culture - Preliminary Blood NO GROWTH AFTER 48 HOURS 06/27/18 04:00 Blood Culture - Preliminary Blood NO GROWTH AFTER 48 HOURS Lab Studies 06/29/18 06/29/18 06/29/18 Range/Units 07:11 05:54 05:54 WBC (4.8-10.8) K/uL RBC (3.80-5.20) Mil/uL Hgb (11.0-16.0) g/dL Hct (34.0-47.0) % MCV (81.0-99.0) fL MCH (27.0-31.0) pg MCHC (33.0-37.0) g/dL RDW (11.5-14.5) % Plt Count (130-400) K/uL MPV (7.2-11.7) fL Neut % (Auto) (50.0-75.0) % Lymph % (Auto) (20.0-40.0) % Kimball % (Auto) (0.0-10.0) % Eos % (Auto) (0.0-4.0) % Baso % (Auto) (0.0-2.0) % Neut # (Auto) (1.8-7.0) K/uL Lymph # (Auto) (1.0-4.3) K/uL Kimball # (Auto) (0.0-0.8) K/uL Eos # (Auto) (0.0-0.7) K/uL Baso # (Auto) (0.0-0.2) K/uL Neutrophils % (Manual) (50-75) % Band Neutrophils % (0-2) % Lymphocytes % (Manual) (20-40) % Monocytes % (Manual) (0-10) % Platelet Estimate (NORMAL) Large Platelets Polychromasia Hypochromasia (manual) Poikilocytosis (manual Anisocytosis (manual) Microcytosis (manual) Macrocytosis (manual) Tear Drop Cells Ovalocytes Sodium 135 (132-148) mmol/L Potassium 4.6 (3.6-5.2) mmol/L Chloride 97 L (98-107) mmol/L Carbon Dioxide 30 (22-30) mmol/L Anion Gap 12 (10-20) BUN 41 H (7-17) mg/dL Creatinine 2.9 H (0.7-1.2) mg/dL Est GFR ( Amer) 19 Est GFR (Non-Af Amer) 16 Random Glucose 200 H D (65-105) mg/dL Calcium 8.4 L (8.6-10.4) mg/dl Phosphorus 4.6 H (2.5-4.5) mg/dL Magnesium 2.1 (1.6-2.3) mg/dL Total Bilirubin 0.7 (0.2-1.3) mg/dL AST 25 (14-36) U/L ALT 25 (9-52) U/L Alkaline Phosphatase 61 (38-126) U/L Total Protein 5.9 L (6.3-8.3) g/dL Albumin 2.9 L (3.5-5.0) g/dL Globulin 3.0 (2.2-3.9) gm/dL Albumin/Globulin Ratio 1.0 (1.0-2.1) Procalcitonin 0.92 H (0.19-0.49) NG/ML Urine Color Julienne (YELLOW) Urine Clarity Hazy (Clear) Urine pH 5.0 (5.0-8.0) Ur Specific Convent 1.017 (1.003-1.030) Urine Protein Negative (NEGATIVE) mg/dL Urine Glucose (UA) Normal (Normal) mg/dL Urine Ketones Negative (NEGATIVE) mg/dL Urine Blood Negative (NEGATIVE) Urine Nitrate Negative (NEGATIVE) Urine Bilirubin Negative (NEGATIVE) Urine Urobilinogen Normal (0.2-1.0) mg/dL Ur Leukocyte Esterase Neg (Negative) Roman/uL Urine WBC (Auto) 5 (0-5) /hpf Urine RBC (Auto) 6 H (0-3) /hpf Ur Squamous Epith Cells 8 H (0-5) /hpf 06/29/18 Range/Units 05:54 WBC 24.9 H (4.8-10.8) K/uL RBC 3.04 L (3.80-5.20) Mil/uL Hgb 8.2 L (11.0-16.0) g/dL Hct 26.7 L (34.0-47.0) % MCV 87.7 (81.0-99.0) fL MCH 26.8 L (27.0-31.0) pg MCHC 30.6 L (33.0-37.0) g/dL RDW 17.0 H (11.5-14.5) % Plt Count 260 (130-400) K/uL MPV 10.2 (7.2-11.7) fL Neut % (Auto) 94.2 H (50.0-75.0) % Lymph % (Auto) 3.0 L (20.0-40.0) % Kimball % (Auto) 2.7 (0.0-10.0) % Eos % (Auto) 0.0 (0.0-4.0) % Baso % (Auto) 0.1 (0.0-2.0) % Neut # (Auto) 23.4 H (1.8-7.0) K/uL Lymph # (Auto) 0.7 L (1.0-4.3) K/uL Kimball # (Auto) 0.7 (0.0-0.8) K/uL Eos # (Auto) 0.0 (0.0-0.7) K/uL Baso # (Auto) 0.0 (0.0-0.2) K/uL Neutrophils % (Manual) 93 H (50-75) % Band Neutrophils % 4 H (0-2) % Lymphocytes % (Manual) 2 L (20-40) % Monocytes % (Manual) 1 (0-10) % Platelet Estimate Normal (NORMAL) Large Platelets Present Polychromasia Slight Hypochromasia (manual) Slight Poikilocytosis (manual Slight Anisocytosis (manual) Slight Microcytosis (manual) Slight Macrocytosis (manual) Slight Tear Drop Cells Slight Ovalocytes Slight Sodium (132-148) mmol/L Potassium (3.6-5.2) mmol/L Chloride (98-107) mmol/L Carbon Dioxide (22-30) mmol/L Anion Gap (10-20) BUN (7-17) mg/dL Creatinine (0.7-1.2) mg/dL Est GFR ( Amer) Est GFR (Non-Af Amer) Random Glucose (65-105) mg/dL Calcium (8.6-10.4) mg/dl Phosphorus (2.5-4.5) mg/dL Magnesium (1.6-2.3) mg/dL Total Bilirubin (0.2-1.3) mg/dL AST (14-36) U/L ALT (9-52) U/L Alkaline Phosphatase (38-126) U/L Total Protein (6.3-8.3) g/dL Albumin (3.5-5.0) g/dL Globulin (2.2-3.9) gm/dL Albumin/Globulin Ratio (1.0-2.1) Procalcitonin (0.19-0.49) NG/ML Urine Color (YELLOW) Urine Clarity (Clear) Urine pH (5.0-8.0) Ur Specific Convent (1.003-1.030) Urine Protein (NEGATIVE) mg/dL Urine Glucose (UA) (Normal) mg/dL Urine Ketones (NEGATIVE) mg/dL Urine Blood (NEGATIVE) Urine Nitrate (NEGATIVE) Urine Bilirubin (NEGATIVE) Urine Urobilinogen (0.2-1.0) mg/dL Ur Leukocyte Esterase (Negative) Roman/uL Urine WBC (Auto) (0-5) /hpf Urine RBC (Auto) (0-3) /hpf Ur Squamous Epith Cells (0-5) /hpf Laboratory Results - last 24 hr 06/29/18 06/29/18 06/29/18 05:54 05:54 05:54 WBC 24.9 H RBC 3.04 L Hgb 8.2 L Hct 26.7 L MCV 87.7 MCH 26.8 L MCHC 30.6 L RDW 17.0 H Plt Count 260 MPV 10.2 Neut % (Auto) 94.2 H Lymph % (Auto) 3.0 L Kimball % (Auto) 2.7 Eos % (Auto) 0.0 Baso % (Auto) 0.1 Neut # (Auto) 23.4 H Lymph # (Auto) 0.7 L Kimball # (Auto) 0.7 Eos # (Auto) 0.0 Baso # (Auto) 0.0 Neutrophils % (Manual) 93 H Band Neutrophils % 4 H Lymphocytes % (Manual) 2 L Monocytes % (Manual) 1 Platelet Estimate Normal Large Platelets Present Polychromasia Slight Hypochromasia (manual) Slight Poikilocytosis (manual Slight Anisocytosis (manual) Slight Microcytosis (manual) Slight Macrocytosis (manual) Slight Tear Drop Cells Slight Ovalocytes Slight Sodium 135 Potassium 4.6 Chloride 97 L Carbon Dioxide 30 Anion Gap 12 BUN 41 H Creatinine 2.9 H Est GFR ( Amer) 19 Est GFR (Non-Af Amer) 16 Random Glucose 200 H D Calcium 8.4 L Phosphorus 4.6 H Magnesium 2.1 Total Bilirubin 0.7 AST 25 ALT 25 Alkaline Phosphatase 61 Total Protein 5.9 L Albumin 2.9 L Globulin 3.0 Albumin/Globulin Ratio 1.0 Procalcitonin 0.92 H Urine Color Urine Clarity Urine pH Ur Specific [place] Urine Protein Urine Glucose (UA) Urine Ketones Urine Blood Urine Nitrate Urine Bilirubin Urine Urobilinogen Ur Leukocyte Esterase Urine WBC (Auto) Urine RBC (Auto) Ur Squamous Epith Cells 06/29/18 07:11 WBC RBC Hgb Hct MCV MCH MCHC RDW Plt Count MPV Neut % (Auto) Lymph % (Auto) Kimball % (Auto) Eos % (Auto) Baso % (Auto) Neut # (Auto) Lymph # (Auto) Kimball # (Auto) Eos # (Auto) Baso # (Auto) Neutrophils % (Manual) Band Neutrophils % Lymphocytes % (Manual) Monocytes % (Manual) Platelet Estimate Large Platelets Polychromasia Hypochromasia (manual) Poikilocytosis (manual Anisocytosis (manual) Microcytosis (manual) Macrocytosis (manual) Tear Drop Cells Ovalocytes Sodium Potassium Chloride Carbon Dioxide Anion Gap BUN Creatinine Est GFR ( Amer) Est GFR (Non-Af Amer) Random Glucose Calcium Phosphorus Magnesium Total Bilirubin AST ALT Alkaline Phosphatase Total Protein Albumin Globulin Albumin/Globulin Ratio Procalcitonin Urine Color Julienne Urine Clarity Hazy Urine pH 5.0 Ur Specific [place]vent 1.017 Urine Protein Negative Urine Glucose (UA) Normal Urine Ketones Negative Urine Blood Negative Urine Nitrate Negative Urine Bilirubin Negative Urine Urobilinogen Normal Ur Leukocyte Esterase Neg Urine WBC (Auto) 5 Urine RBC (Auto) 6 H Ur Squamous Epith Cells 8 H Critical Care Progress Note - Nutrition Nutrition: Nutrition Category Date Time Status Renal Diet [DIET] Diets 06/26/18 Breakfast Active Assessment/Plan - Assessment and Plan (Free Text) Plan: Above patient seen and examined at bedside. Patient with A-fib rate controlled -hemodynamically stable -above resident note documents my clinical management. - Date & Time Date: 06/28/18 Time: 18:49
[2018-06-28] MEDS: Insulin Detemir 100 units/ml Vial (Levemir) SC SCH ×2 (12:10→23:00)
--- NOTE | 2018-06-28 12:48 | CP.PCM.PN ---
Subjective - Date & Time of Evaluation Date of Evaluation: 06/28/18 Time of Evaluation: 12:45 - Subjective Subjective: Seen on dialysis; goal 2000ml UF BP stable now off amiodarone, diltiazem drips Increased leukocytosis likely from IV steroids Still with dry cough Rhythm - NSR now Feels better Objective - Vital Signs/Intake and Output Vital Signs (last 24 hours): Temp Pulse Resp BP Pulse Ox 99.1 F 91 H 23 122/47 L 92 L 06/28/18 12:00 06/28/18 12:16 06/28/18 12:16 06/28/18 12:16 06/28/18 12:16 Intake and Output: 06/28/18 06/28/18 06:59 18:59 Intake Total 563.4 360 Output Total 50 0 Balance 513.4 360 - Medications Medications: Current Medications Acetaminophen (Tylenol 325mg Tab) 650 mg PO Q6 PRN PRN Reason: Fever >100.4 F Last Admin: 06/26/18 18:19 Dose: 650 mg Apixaban (Eliquis) 2.5 mg PO BID [facility] Last Admin: 06/28/18 09:59 Dose: 2.5 mg Budesonide (Pulmicort Respules) 1 mg IH RBID [facility] Calcium Acetate (Phoslo) 667 mg PO TID [facility] Last Admin: 06/28/18 09:59 Dose: 667 mg Diltiazem HCl (Cardizem Cd) 240 mg PO DAILY [facility] Last Admin: 06/28/18 10:02 Dose: 240 mg Epoetin Eddie (Procrit) 10,000 unit IV MWF [facility] Famotidine (Pepcid) 20 mg PO DAILY [facility] Last Admin: 06/28/18 09:59 Dose: 20 mg Ferrous Sulfate (Feosol) 325 mg PO DAILY [facility] Last Admin: 06/28/18 10:00 Dose: 325 mg Fluticasone/Vilanterol (Breo Ellipta 200-25 Mcg Inh) 1 puff INH RQD [facility] Last Admin: 06/28/18 07:30 Dose: 1 puff Glipizide (Glucotrol) 10 mg PO ACBD [facility] Last Admin: 06/28/18 08:04 Dose: 10 mg Guaifenesin/Dextromethorphan (Robitussin Dm) 10 ml PO Q4H PRN PRN Reason: Cough and congestion Last Admin: 06/28/18 06:30 Dose: 10 ml Azithromycin 500 mg/ Sodium (Chloride) 250 mls @ 250 mls/hr IVPB DAILY@1100 [facility]; Protocol Last Admin: 06/27/18 10:14 Dose: 250 mls/hr Cefepime HCl 1 gm/ Dextrose 50 mls @ 100 mls/hr IVPB Q24H [facility]; Protocol Last Admin: 06/27/18 21:30 Dose: 100 mls/hr Insulin Aspart (Novolog) 10 unit SC ONCE [facility] Insulin Aspart (Novolog) 0 unit SC ACHS [facility]; Protocol Last Admin: 06/28/18 12:11 Dose: 10 units Insulin Detemir (Levemir) 12 unit SC Q12H [facility] Last Admin: 06/28/18 12:10 Dose: 12 units Levothyroxine Sodium (Synthroid) 150 mcg PO DAILY@0630 [facility] Last Admin: 06/28/18 06:25 Dose: 150 mcg Methylprednisolone (Solu-Medrol) 40 mg IVP Q8H [facility] Last Admin: 06/28/18 06:25 Dose: 40 mg Rosuvastatin Calcium (Crestor) 5 mg PO HS [facility] Last Admin: 06/27/18 21:30 Dose: 5 mg Tiotropium [place] (Spiriva) 18 mcg INH RQ24 [facility] Last Admin: 06/28/18 08:21 Dose: Not Given - Labs Labs: 06/28/18 06:10 06/28/18 06:10 - Constitutional Appears: Non-toxic, No Acute Distress, Chronically Ill - Head Exam Head Exam: ATRAUMATIC, NORMAL INSPECTION - Eye Exam Eye Exam: EOMI, Normal appearance - Neck Exam Neck Exam: Normal Inspection. absent: Tenderness - Respiratory Exam Respiratory Exam: Rhonchi, Wheezes, NORMAL BREATHING PATTERN - Cardiovascular Exam Cardiovascular Exam: REGULAR RHYTHM, +S1 - GI/Abdominal Exam GI & Abdominal Exam: Soft. absent: Tenderness - Extremities Exam Extremities Exam: Normal Inspection. absent: Tenderness - Neurological Exam Neurological Exam: Awake, CN II-XII Intact - Skin Skin Exam: Dry, Warm Assessment and Plan (1) Atrial fibrillation with RVR Status: Resolved (2) CHF exacerbation Status: Acute (3) COPD exacerbation Status: Acute (4) Multiple myeloma Status: Acute - Assessment and Plan (Free Text) Plan: Dialysis MWF Adequate UF Monitor HR- resolved SVT now COPD rx as per medicine
[2018-06-28] MEDS: Epoetin Alfa 10,000 unit/ml Dialysis IV SCH (13:33)
[2018-06-28] MEDS: Azithromycin 500 MG in Sodium Chloride 0.9% 250 ML IVPB SCH (14:01)
--- NOTE | 2018-06-28 16:35 | CP.PCM.PN ---
Subjective - Date & Time of Evaluation Date of Evaluation: 06/28/18 Time of Evaluation: 16:35 Objective - Vital Signs/Intake and Output Vital Signs (last 24 hours): Temp Pulse Resp BP Pulse Ox 98.0 F 92 H 17 102/49 L 92 L 06/28/18 14:00 06/28/18 15:56 06/28/18 15:56 06/28/18 15:56 06/28/18 15:56 Intake and Output: 06/28/18 06/28/18 06:59 18:59 Intake Total 563.4 850 Output Total 50 2000 Balance 513.4 -1150 - Medications Medications: Current Medications Acetaminophen (Tylenol 325mg Tab) 650 mg PO Q6 PRN PRN Reason: Fever >100.4 F Last Admin: 06/26/18 18:19 Dose: 650 mg Apixaban (Eliquis) 2.5 mg PO BID [facility] Last Admin: 06/28/18 09:59 Dose: 2.5 mg Budesonide (Pulmicort Respules) 1 mg IH RBID [facility] Calcium Acetate (Phoslo) 667 mg PO TID [facility] Last Admin: 06/28/18 14:00 Dose: 667 mg Diltiazem HCl (Cardizem Cd) 240 mg PO DAILY [facility] Last Admin: 06/28/18 10:02 Dose: 240 mg Epoetin Eddie (Procrit) 10,000 unit IV MWF [facility] Last Admin: 06/28/18 13:33 Dose: 10,000 unit Famotidine (Pepcid) 20 mg PO DAILY [facility] Last Admin: 06/28/18 09:59 Dose: 20 mg Ferrous Sulfate (Feosol) 325 mg PO DAILY [facility] Last Admin: 06/28/18 10:00 Dose: 325 mg Fluticasone/Vilanterol (Breo Ellipta 200-25 Mcg Inh) 1 puff INH RQD [facility] Last Admin: 06/28/18 07:30 Dose: 1 puff Glipizide (Glucotrol) 10 mg PO ACBD [facility] Last Admin: 06/28/18 08:04 Dose: 10 mg Guaifenesin/Dextromethorphan (Robitussin Dm) 10 ml PO Q4H PRN PRN Reason: Cough and congestion Last Admin: 06/28/18 15:50 Dose: 10 ml Azithromycin 500 mg/ Sodium (Chloride) 250 mls @ 250 mls/hr IVPB DAILY@1100 [facility]; Protocol Last Admin: 06/28/18 14:01 Dose: 250 mls/hr Cefepime HCl 1 gm/ Dextrose 50 mls @ 100 mls/hr IVPB Q24H [facility]; Protocol Last Admin: 06/27/18 21:30 Dose: 100 mls/hr Insulin Aspart (Novolog) 10 unit SC ONCE [facility] Insulin Aspart (Novolog) 0 unit SC ACHS [facility]; Protocol Last Admin: 06/28/18 11:30 Dose: Not Given Insulin Detemir (Levemir) 12 unit SC Q12H [facility] Last Admin: 06/28/18 12:10 Dose: 12 units Levothyroxine Sodium (Synthroid) 150 mcg PO DAILY@0630 [facility] Last Admin: 06/28/18 06:25 Dose: 150 mcg Methylprednisolone (Solu-Medrol) 40 mg IVP Q8H [facility] Last Admin: 06/28/18 14:00 Dose: 40 mg Rosuvastatin Calcium (Crestor) 5 mg PO HS [facility] Last Admin: 06/27/18 21:30 Dose: 5 mg Tiotropium [place] (Spiriva) 18 mcg INH RQ24 [facility] Last Admin: 06/28/18 08:21 Dose: Not Given - Labs Labs: 06/28/18 06:10 06/28/18 06:10 Assessment and Plan (1) CHF exacerbation Status: Acute (2) Dyspnea Status: Acute (3) Atrial fibrillation with RVR Status: Resolved (4) COPD (chronic obstructive pulmonary disease) Status: Acute (5) ESRD (end stage renal disease) Status: Acute
--- NOTE | 2018-06-28 18:11 | CP.PCM.PN ---
Subjective - Date & Time of Evaluation Date of Evaluation: 06/28/18 Time of Evaluation: 10:00 - Subjective Subjective: feels less SOB awake alert oob to chair denies fever no diarrhea all cultures reviewed Objective - Vital Signs/Intake and Output Vital Signs (last 24 hours): Temp Pulse Resp BP Pulse Ox 99.7 F H 92 H 20 101/47 L 100 06/28/18 16:00 06/28/18 18:00 06/28/18 18:00 06/28/18 17:01 06/28/18 18:00 Intake and Output: 06/28/18 06/28/18 06:59 18:59 Intake Total 563.4 970 Output Total 50 2000 Balance 513.4 -1030 - Medications Medications: Current Medications Acetaminophen (Tylenol 325mg Tab) 650 mg PO Q6 PRN PRN Reason: Fever >100.4 F Last Admin: 06/26/18 18:19 Dose: 650 mg Apixaban (Eliquis) 2.5 mg PO BID [facility] Last Admin: 06/28/18 18:09 Dose: 2.5 mg Budesonide (Pulmicort Respules) 1 mg IH RBID [facility] Calcium Acetate (Phoslo) 667 mg PO TID [facility] Last Admin: 06/28/18 18:09 Dose: 667 mg Diltiazem HCl (Cardizem Cd) 240 mg PO DAILY [facility] Last Admin: 06/28/18 10:02 Dose: 240 mg Epoetin Eddie (Procrit) 10,000 unit IV MWF [facility] Last Admin: 06/28/18 13:33 Dose: 10,000 unit Famotidine (Pepcid) 20 mg PO DAILY [facility] Last Admin: 06/28/18 09:59 Dose: 20 mg Ferrous Sulfate (Feosol) 325 mg PO DAILY [facility] Last Admin: 06/28/18 10:00 Dose: 325 mg Fluticasone/Vilanterol (Breo Ellipta 200-25 Mcg Inh) 1 puff INH RQD [facility] Last Admin: 06/28/18 07:30 Dose: 1 puff Glipizide (Glucotrol) 10 mg PO ACBD [facility] Last Admin: 06/28/18 16:47 Dose: 10 mg Guaifenesin/Dextromethorphan (Robitussin Dm) 10 ml PO Q4H PRN PRN Reason: Cough and congestion Last Admin: 06/28/18 15:50 Dose: 10 ml Azithromycin 500 mg/ Sodium (Chloride) 250 mls @ 250 mls/hr IVPB DAILY@1100 [facility]; Protocol Last Admin: 06/28/18 14:01 Dose: 250 mls/hr Cefepime HCl 1 gm/ Dextrose 50 mls @ 100 mls/hr IVPB Q24H [facility]; Protocol Last Admin: 06/28/18 18:09 Dose: 100 mls/hr Insulin Aspart (Novolog) 10 unit SC ONCE [facility] Insulin Aspart (Novolog) 0 unit SC ACHS [facility]; Protocol Last Admin: 06/28/18 16:47 Dose: 12 units Insulin Detemir (Levemir) 12 unit SC Q12H [facility] Last Admin: 06/28/18 12:10 Dose: 12 units Levothyroxine Sodium (Synthroid) 150 mcg PO DAILY@0630 [facility] Last Admin: 06/28/18 06:25 Dose: 150 mcg Methylprednisolone (Solu-Medrol) 40 mg IVP Q8H [facility] Last Admin: 06/28/18 14:00 Dose: 40 mg Rosuvastatin Calcium (Crestor) 5 mg PO HS [facility] Last Admin: 06/27/18 21:30 Dose: 5 mg Tiotropium [place] (Spiriva) 18 mcg INH RQ24 [facility] Last Admin: 06/28/18 08:21 Dose: Not Given - Labs Labs: 06/28/18 06:10 06/28/18 06:10 - Constitutional Appears: No Acute Distress, Chronically Ill - Head Exam Head Exam: NORMOCEPHALIC - Eye Exam Eye Exam: PERRL. absent: Scleral icterus - ENT Exam ENT Exam: Mucous Membranes Dry, Normal External Ear Exam - Neck Exam Neck Exam: absent: Lymphadenopathy - Respiratory Exam Respiratory Exam: Decreased Breath Sounds, Prolonged Expiratory Phase, Rhonchi - Cardiovascular Exam Cardiovascular Exam: Tachycardia, REGULAR RHYTHM, +S1, +S2 - GI/Abdominal Exam GI & Abdominal Exam: Distended, Soft. absent: Tenderness - Rectal Exam Rectal Exam: Deferred - Exam Exam: NORMAL INSPECTION - Extremities Exam Extremities Exam: absent: Pedal Edema - Back Exam Back Exam: absent: CVA tenderness (L), CVA tenderness (R) - Neurological Exam Neurological Exam: Alert, Awake, CN II-XII Intact Assessment and Plan (1) CHF exacerbation Status: Acute (2) Chronic a-fib Status: Acute (3) Dyspnea Status: Acute (4) ESRD (end stage renal disease) on dialysis Status: Acute (5) Uncontrolled diabetes mellitus Status: Acute - Assessment and Plan (Free Text) Assessment: wbc higher on IV steroids denies diarrhea not much sputum production and no fever cont empiric rx cultures so far negative
--- NOTE | 2018-06-28 19:46 | CP.PCM.PN ---
Subjective - Date & Time of Evaluation Date of Evaluation: 06/28/18 Time of Evaluation: 12:15 - Subjective Subjective: Pt seen and examined no acute interim events reported remains in icu, off amiodarone and cardizem drip s/p ID eval no new medical complaints - no chest pain or abdominal pain, n/v/d Objective - Vital Signs/Intake and Output Vital Signs (last 24 hours): Temp Pulse Resp BP Pulse Ox 99.7 F H 92 H 20 101/47 L 100 06/28/18 16:00 06/28/18 18:00 06/28/18 18:00 06/28/18 17:01 06/28/18 18:00 Intake and Output: 06/28/18 06/29/18 18:59 06:59 Intake Total 1020 Output Total 2000 Balance -980 - Medications Medications: Current Medications Acetaminophen (Tylenol 325mg Tab) 650 mg PO Q6 PRN PRN Reason: Fever >100.4 F Last Admin: 06/26/18 18:19 Dose: 650 mg Apixaban (Eliquis) 2.5 mg PO BID [facility] Last Admin: 06/28/18 18:09 Dose: 2.5 mg Budesonide (Pulmicort Respules) 1 mg IH RBID [facility] Calcium Acetate (Phoslo) 667 mg PO TID [facility] Last Admin: 06/28/18 18:09 Dose: 667 mg Diltiazem HCl (Cardizem Cd) 240 mg PO DAILY [facility] Last Admin: 06/28/18 10:02 Dose: 240 mg Epoetin Eddie (Procrit) 10,000 unit IV MWF [facility] Last Admin: 06/28/18 13:33 Dose: 10,000 unit Famotidine (Pepcid) 20 mg PO DAILY [facility] Last Admin: 06/28/18 09:59 Dose: 20 mg Ferrous Sulfate (Feosol) 325 mg PO DAILY [facility] Last Admin: 06/28/18 10:00 Dose: 325 mg Fluticasone/Vilanterol (Breo Ellipta 200-25 Mcg Inh) 1 puff INH RQD [facility] Last Admin: 06/28/18 07:30 Dose: 1 puff Glipizide (Glucotrol) 10 mg PO ACBD [facility] Last Admin: 06/28/18 16:47 Dose: 10 mg Guaifenesin/Dextromethorphan (Robitussin Dm) 10 ml PO Q4H PRN PRN Reason: Cough and congestion Last Admin: 06/28/18 15:50 Dose: 10 ml Azithromycin 500 mg/ Sodium (Chloride) 250 mls @ 250 mls/hr IVPB DAILY@1100 [facility]; Protocol Last Admin: 06/28/18 14:01 Dose: 250 mls/hr Cefepime HCl 1 gm/ Dextrose 50 mls @ 100 mls/hr IVPB Q24H [facility]; Protocol Last Admin: 06/28/18 18:09 Dose: 100 mls/hr Insulin Aspart (Novolog) 10 unit SC ONCE [facility] Insulin Aspart (Novolog) 0 unit SC ACHS [facility]; Protocol Last Admin: 06/28/18 16:47 Dose: 12 units Insulin Detemir (Levemir) 12 unit SC Q12H [facility] Last Admin: 06/28/18 12:10 Dose: 12 units Levothyroxine Sodium (Synthroid) 150 mcg PO DAILY@0630 [facility] Last Admin: 06/28/18 06:25 Dose: 150 mcg Methylprednisolone (Solu-Medrol) 40 mg IVP Q8H [facility] Last Admin: 06/28/18 14:00 Dose: 40 mg Rosuvastatin Calcium (Crestor) 5 mg PO HS [facility] Last Admin: 06/27/18 21:30 Dose: 5 mg Tiotropium [place] (Spiriva) 18 mcg INH RQ24 [facility] Last Admin: 06/28/18 08:21 Dose: Not Given - Labs Labs: 06/28/18 06:10 06/28/18 06:10 - Constitutional Appears: Well - Head Exam Head Exam: ATRAUMATIC, NORMAL INSPECTION, NORMOCEPHALIC - Eye Exam Eye Exam: EOMI, Normal appearance, PERRL Pupil Exam: NORMAL ACCOMODATION, PERRL - ENT Exam ENT Exam: Mucous Membranes Moist, Normal Exam - Neck Exam Neck Exam: Full ROM, Normal Inspection. absent: Lymphadenopathy - Respiratory Exam Respiratory Exam: Decreased Breath Sounds - Cardiovascular Exam Cardiovascular Exam: REGULAR RHYTHM, +S1, +S2 - GI/Abdominal Exam GI & Abdominal Exam: Soft, Diminished Bowel Sounds - Rectal Exam Rectal Exam: Deferred Assessment and Plan (1) CHF exacerbation Status: Acute (2) Dyspnea Status: Acute (3) ESRD (end stage renal disease) on dialysis Status: Acute (4) Uncontrolled diabetes mellitus Status: Acute (5) MARIA EUGENIA (acute kidney injury) Status: Acute (6) Abdominal pain Status: Acute (7) Acute bronchitis Status: Acute (8) Acute kidney injury Status: Acute (9) Acute kidney injury superimposed on chronic kidney disease Status: Acute (10) Acute respiratory failure Status: Acute (11) Anemia Status: Acute (12) Anemia of chronic disease Status: Acute (13) Atrial fibrillation with controlled ventricular response Status: Acute (14) Back pain of thoracolumbar region Status: Acute (15) Bronchitis Status: Acute (16) Bronchitis Status: Acute (17) CHF (congestive heart failure) Status: Acute (18) CHF (congestive heart failure) Status: Acute (19) CKD (chronic kidney disease) stage 3, GFR 30-59 ml/min Status: Acute (20) COPD (chronic obstructive pulmonary disease) Status: Acute (21) COPD exacerbation Status: Acute (22) COPD exacerbation Status: Acute (23) Chest pain Status: Acute (24) ESR raised Status: Acute (25) ESRD (end stage renal disease) Status: Acute (26) Fluid overload Status: Acute (27) Fluid overload, unspecified Status: Acute (28) Gastritis Status: Acute (29) Hepatitis Status: Acute (30) History of asthma Status: Acute (31) History of atrial fibrillation Status: Acute (32) History of back pain Status: Acute (33) History of gastroesophageal reflux (GERD) Status: Acute (34) Hypercalcemia Status: Acute (35) Hyperlipemia Status: Acute (36) Influenza Status: Acute (37) Leucocytosis Status: Acute (38) Lower extremity pain Status: Acute (39) Multiple myeloma Status: Acute (40) Multiple myeloma Status: Acute (41) Myeloma Status: Acute (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 (43) Occult gastrointestinal hemorrhage Status: Acute (44) Paroxysmal A-fib Status: Acute (45) Pneumonia Status: Acute (46) Prophylactic measure Status: Acute (47) Pulmonary hypertension Status: Acute (48) Pulmonary hypertension Status: Acute (49) Renal failure Status: Acute (50) Respiratory tract infection Status: Acute (51) Streptococcus pneumoniae Status: Acute (52) Symptomatic anemia Status: Acute (53) Vertigo Status: Acute (54) Worsening renal function Status: Acute (55) Anemia Status: Chronic (56) Asthma Status: Chronic (57) Atrial fibrillation Status: Chronic (58) Chronic diastolic (congestive) heart failure Status: Chronic (59) Diabetes Status: Chronic (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
[2018-06-29 06:03] LABS: BASO % 0.1 % (0.0-2.0); HEMOGLOBIN 8.2 g/dL (11.0-16.0); LYMPH # 0.7 K/uL (1.0-4.3); MEAN CELL VOLUME 87.7 fL (81.0-99.0); MEAN CORPUSCULAR HEMOGLOBIN 26.8 pg (27.0-31.0); MEAN CORPUSCULAR HGB CONC 30.6 g/dL (33.0-37.0); MEAN PLATELET VOLUME 10.2 fL (7.2-11.7); MONO # 0.7 K/uL (0.0-0.8); MONO % 2.7 % (0.0-10.0); NEUT # 23.4 K/uL (1.8-7.0); NEUT % 94.2 % (50.0-75.0); PLATELET COUNT 260 K/uL (130-400); RBC 3.04 Mil/uL (3.80-5.20); WHITE BLOOD COUNT 24.9 K/uL (4.8-10.8)
[2018-06-29] MEDS: guaiFENesin DM 200 mg-20 mg/10 ml UD PO PRN ×4 (06:15→21:09)
[2018-06-29] MEDS: Levothyroxine 150 MCG TAB PO SCH (06:15)
[2018-06-29 06:24] LABS: ALBUMIN 2.9 g/dL (3.5-5.0); CALCIUM 8.4 mg/dl (8.6-10.4)
[2018-06-29] MEDS: Tiotropium 18 mcg Cap For Inhalation INH SCH (07:45)
[2018-06-29] MEDS: Fluticasone-Vilanterol 200/25mcg Diskus INH SCH (07:45)
[2018-06-29 07:47] LABS: SQUAMOUS EPITHIAL 8 /hpf (0-5); URINE BILIRUBIN NEGATIVE (NEGATIVE); URINE BLOOD NEGATIVE (NEGATIVE); URINE CLARITY Hazy (Clear); URINE COLOR Amber (YELLOW); URINE GLUCOSE (UA) NORMAL (Normal); URINE LEUKOCYTE ESTERASE NEG Leu/uL (Negative); URINE PROTEIN NEGATIVE (NEGATIVE); URINE UROBILINOGEN NORMAL mg/dL (0.2-1.0)
[2018-06-29] MEDS: (Novolog) Insulin Aspart, Recombinant 100 u/ml 10 ml vial SC SCH ×3 (08:11→16:48)
--- NOTE | 2018-06-29 08:32 | CP.PCM.CON ---
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 Spontaneously converted to NSR. Undergoing treatment for COPD excerbation. Still complains of dyspnea. Denies chest pain, palpitatons, fever, chills, abdominal pain or diarrhea. Review of Systems - Review of Systems Review of Systems: all others are negative except HPI Past Patient History - Infectious Disease Hx of Infectious Diseases: None - Past Medical History & Family History Past Medical History?: Yes - Past Social History Smoking Status: Former Smoker - CARDIAC Hx Cardiac Disorders: Yes Hx Atrial Fibrillation: Yes Hx Cardia Arrhythmia: Yes Hx Congestive Heart Failure: Yes Hx Hypercholesterolemia: Yes Hx Hypertension: Yes - PULMONARY Hx Respiratory Disorders: Yes Hx Chronic Obstructive Pulmonary Disease (COPD): Yes - NEUROLOGICAL Hx Neurological Disorder: No - HEENT Hx HEENT Problems: Yes Hx Cataracts: Yes (bilateral) - RENAL Hx Chronic Kidney Disease: Yes Type of Dialysis Access: HD Date of Last Dialysis Treatment: 06/24/18 Hx Kidney Stones: No Hx Neurogenic Bladder: No Hx Pyelonephritis: No Hx Renal (Kidney) Cancer: No Hx Renal Failure: Yes Other/Comment: ART M-W- @ [facility] - ENDOCRINE/METABOLIC Hx Endocrine Disorders: Yes Hx Diabetes Mellitus Type 1: Yes Hx Diabetes Mellitus Type 2: Yes Hx Hypothyroidism: Yes - HEMATOLOGICAL/ONCOLOGICAL Hx Blood Disorders: Yes Hx Anemia: Yes Other/Comment: Multiple Myeloma - INTEGUMENTARY Hx Dermatological Problems: No Hx Basil Cell: No Hx Padilla: No Hx Cellulitis: No Hx Eczema: No Hx Melanoma: No Hx Squamous Cell: No - MUSCULOSKELETAL/RHEUMATOLOGICAL Hx Musculoskeletal Disorders: Yes Hx Arthritis: Yes Hx Falls: No - GASTROINTESTINAL Hx Gastrointestinal Disorders: Yes Hx Hemorrhoids: Yes - GENITOURINARY/GYNECOLOGICAL Hx Genitourinary Disorders: No - PSYCHIATRIC Hx Psychophysiologic Disorder: No Hx Substance Use: No - SURGICAL HISTORY Hx Surgeries: Yes Hx Arteriovenous Shunt: Yes (LEFT ARM AV ,permacath) Hx Vascular Access Device: Yes (perma cath elaina cath) - ANESTHESIA Hx Anesthesia: Yes Hx Anesthesia Reactions: No Hx Malignant Hyperthermia: No Has any member of the family had a problem w/ anesthesia?: No Meds Allergies/Adverse Reactions: Allergies Allergy/AdvReac Type Severity Reaction Status Date / Time No Known Allergies Allergy Verified 06/25/18 14:25 - Medications Medications: Current Medications Acetaminophen (Tylenol 325mg Tab) 650 mg PO Q6 PRN PRN Reason: Fever >100.4 F Last Admin: 06/26/18 18:19 Dose: 650 mg Apixaban (Eliquis) 2.5 mg PO BID [facility] Last Admin: 06/28/18 18:09 Dose: 2.5 mg Budesonide (Pulmicort Respules) 1 mg IH RBID [facility] Calcium Acetate (Phoslo) 667 mg PO TID [facility] Last Admin: 06/28/18 18:09 Dose: 667 mg Diltiazem HCl (Cardizem Cd) 240 mg PO DAILY [facility] Last Admin: 06/28/18 10:02 Dose: 240 mg Epoetin Eddie (Procrit) 10,000 unit IV MWF [facility] Last Admin: 06/28/18 13:33 Dose: 10,000 unit Famotidine (Pepcid) 20 mg PO DAILY [facility] Last Admin: 06/28/18 09:59 Dose: 20 mg Ferrous Sulfate (Feosol) 325 mg PO DAILY [facility] Last Admin: 06/28/18 10:00 Dose: 325 mg Fluticasone/Vilanterol (Breo Ellipta 200-25 Mcg Inh) 1 puff INH RQD [facility] Last Admin: 06/29/18 07:45 Dose: 1 puff Glipizide (Glucotrol) 10 mg PO ACBD [facility] Last Admin: 06/29/18 08:11 Dose: 10 mg Guaifenesin/Dextromethorphan (Robitussin Dm) 10 ml PO Q4H PRN PRN Reason: Cough and congestion Last Admin: 06/29/18 06:15 Dose: 10 ml Azithromycin 500 mg/ Sodium (Chloride) 250 mls @ 250 mls/hr IVPB DAILY@1100 [facility]; Protocol Last Admin: 06/28/18 14:01 Dose: 250 mls/hr Cefepime HCl 1 gm/ Dextrose 50 mls @ 100 mls/hr IVPB Q24H [facility]; Protocol Last Admin: 06/28/18 18:09 Dose: 100 mls/hr Insulin Aspart (Novolog) 10 unit SC ONCE [facility] Insulin Aspart (Novolog) 0 unit SC ACHS [facility]; Protocol Last Admin: 06/29/18 08:11 Dose: 6 units Insulin Detemir (Levemir) 12 unit SC Q12H [facility] Last Admin: 06/28/18 23:00 Dose: Not Given Levothyroxine Sodium (Synthroid) 150 mcg PO DAILY@0630 [facility] Last Admin: 06/29/18 06:15 Dose: 150 mcg Methylprednisolone (Solu-Medrol) 40 mg IVP Q12 [facility] Last Admin: 06/28/18 22:10 Dose: 40 mg Rosuvastatin Calcium (Crestor) 5 mg PO HS [facility] Last Admin: 06/28/18 22:10 Dose: 5 mg Tiotropium [place] (Spiriva) 18 mcg INH RQ24 [facility] Last Admin: 06/29/18 07:45 Dose: 18 mcg Physical Exam - Constitutional Appears: Well, No Acute Distress - Head Exam Head Exam: ATRAUMATIC, NORMOCEPHALIC - Eye Exam Eye Exam: EOMI Pupil Exam: PERRL - ENT Exam ENT Exam: Mucous Membranes Moist - Neck Exam Neck exam: Positive for: Normal Inspection - Respiratory Exam Respiratory Exam: Decreased Breath Sounds, Wheezes - Cardiovascular Exam Cardiovascular Exam: REGULAR RHYTHM, RRR, +S1, +S2. absent: JVD, Systolic Murmur - Neurological Exam Neurological exam: Alert, CN II-XII Intact, Oriented x3 - Psychiatric Exam Psychiatric exam: Normal Affect, Normal Mood - Skin Skin Exam: Normal Color Results - Vital Signs Recent Vital Signs: Last Vital Signs Temp 97.7 F 06/29/18 04:00 Pulse 67 06/29/18 04:00 Resp 14 06/29/18 04:00 BP 106/47 L 06/29/18 04:00 Pulse Ox 95 06/29/18 04:00 - Labs Result Diagrams: 06/29/18 05:54 06/29/18 05:54 Labs: Laboratory Results - last 24 hr 06/28/18 06/29/18 06/29/18 06:10 05:54 05:54 WBC 24.9 H RBC 3.04 L Hgb 8.2 L Hct 26.7 L MCV 87.7 MCH 26.8 L MCHC 30.6 L RDW 17.0 H Plt Count 260 MPV 10.2 Neut % (Auto) 94.2 H Lymph % (Auto) 3.0 L [place] % (Auto) 2.7 Eos % (Auto) 0.0 Baso % (Auto) 0.1 Neut # (Auto) 23.4 H Lymph # (Auto) 0.7 L [place] # (Auto) 0.7 Eos # (Auto) 0.0 Baso # (Auto) 0.0 Sodium 135 Potassium 4.6 Chloride 97 L Carbon Dioxide 30 Anion Gap 12 BUN 41 H Creatinine 2.9 H Est GFR ( Amer) 19 Est GFR (Non-Af Amer) 16 Random Glucose 200 H D Calcium 8.4 L Phosphorus 4.6 H Magnesium 2.1 Total Bilirubin 0.7 AST 25 ALT 25 Alkaline Phosphatase 61 Total Protein 5.9 L Albumin 2.9 L Globulin 3.0 Albumin/Globulin Ratio 1.0 Procalcitonin 0.77 H Urine Color Urine Clarity Urine pH Ur Specific [place] Urine Protein Urine Glucose (UA) Urine Ketones Urine Blood Urine Nitrate Urine Bilirubin Urine Urobilinogen Ur Leukocyte Esterase Urine WBC (Auto) Urine RBC (Auto) Ur Squamous Epith Cells 06/29/18 07:11 WBC RBC Hgb Hct MCV MCH MCHC RDW Plt Count MPV Neut % (Auto) Lymph % (Auto) [place] % (Auto) Eos % (Auto) Baso % (Auto) Neut # (Auto) Lymph # (Auto) [place] # (Auto) Eos # (Auto) Baso # (Auto) Sodium Potassium Chloride Carbon Dioxide Anion Gap BUN Creatinine Est GFR ( Amer) Est GFR (Non-Af Amer) Random Glucose Calcium Phosphorus Magnesium Total Bilirubin AST ALT Alkaline Phosphatase Total Protein Albumin Globulin Albumin/Globulin Ratio Procalcitonin Urine Color Julienne Urine Clarity Hazy Urine pH 5.0 Ur Specific [place] 1.017 Urine Protein Negative Urine Glucose (UA) Normal Urine Ketones Negative Urine Blood Negative Urine Nitrate Negative Urine Bilirubin Negative Urine Urobilinogen Normal Ur Leukocyte Esterase Neg Urine WBC (Auto) 5 Urine RBC (Auto) 6 H Ur Squamous Epith Cells 8 H - EKG Data EKG comments: my review: NSR, no acute ST-T changes Assessment & Plan (1) Paroxysmal atrial fibrillation Assessment and Plan: Rapid AF during BILL [employer] INSTALLER, likely related to COPD excerbation Spontaneously converted to NSR On anticoagulation with apixaban, dosed appropriately, based on age and renal function on diltiazem for rate control Was on amiodarone post JAYDEN/CV in April,kly dc'd due to chronic COPD Cont with diltiazem for rate control May add selective bblocker if needed for additonal AV blockade Preserved LV function on echo 04/2018 Status: Acute (2) COPD exacerbation Assessment and Plan: Cont with abx/nebs/steroids per primary team Status: Acute
--- NOTE | 2018-06-29 08:37 | CP.PCM.PN ---
Subjective - Date & Time of Evaluation Date of Evaluation: 06/29/18 Time of Evaluation: 08:35 - Subjective Subjective: bp stable afebrile pulse controlled chems ok awake alert comfortable ibed eating breakfast ROS no dizziness no chest pain palpitations no sob or cough no abd pain n,v,d no dysuria Objective - Vital Signs/Intake and Output Vital Signs (last 24 hours): Temp Pulse Resp BP Pulse Ox 97.7 F 67 14 106/47 L 95 06/29/18 04:00 06/29/18 04:00 06/29/18 04:00 06/29/18 04:00 06/29/18 04:00 Intake and Output: 06/29/18 06/29/18 06:59 18:59 Intake Total 160 Output Total 40 Balance 120 - Medications Medications: Current Medications Acetaminophen (Tylenol 325mg Tab) 650 mg PO Q6 PRN PRN Reason: Fever >100.4 F Last Admin: 06/26/18 18:19 Dose: 650 mg Apixaban (Eliquis) 2.5 mg PO BID [facility] Last Admin: 06/28/18 18:09 Dose: 2.5 mg Budesonide (Pulmicort Respules) 1 mg IH RBID [facility] Calcium Acetate (Phoslo) 667 mg PO TID [facility] Last Admin: 06/28/18 18:09 Dose: 667 mg Diltiazem HCl (Cardizem Cd) 240 mg PO DAILY [facility] Last Admin: 06/28/18 10:02 Dose: 240 mg Epoetin Eddie (Procrit) 10,000 unit IV MWF [facility] Last Admin: 06/28/18 13:33 Dose: 10,000 unit Famotidine (Pepcid) 20 mg PO DAILY [facility] Last Admin: 06/28/18 09:59 Dose: 20 mg Ferrous Sulfate (Feosol) 325 mg PO DAILY [facility] Last Admin: 06/28/18 10:00 Dose: 325 mg Fluticasone/Vilanterol (Breo Ellipta 200-25 Mcg Inh) 1 puff INH RQD [facility] Last Admin: 06/29/18 07:45 Dose: 1 puff Glipizide (Glucotrol) 10 mg PO ACBD [facility] Last Admin: 06/29/18 08:11 Dose: 10 mg Guaifenesin/Dextromethorphan (Robitussin Dm) 10 ml PO Q4H PRN PRN Reason: Cough and congestion Last Admin: 06/29/18 06:15 Dose: 10 ml Azithromycin 500 mg/ Sodium (Chloride) 250 mls @ 250 mls/hr IVPB DAILY@1100 [facility]; Protocol Last Admin: 06/28/18 14:01 Dose: 250 mls/hr Cefepime HCl 1 gm/ Dextrose 50 mls @ 100 mls/hr IVPB Q24H [facility]; Protocol Last Admin: 06/28/18 18:09 Dose: 100 mls/hr Insulin Aspart (Novolog) 10 unit SC ONCE [facility] Insulin Aspart (Novolog) 0 unit SC ACHS [facility]; Protocol Last Admin: 06/29/18 08:11 Dose: 6 units Insulin Detemir (Levemir) 12 unit SC Q12H [facility] Last Admin: 06/28/18 23:00 Dose: Not Given Levothyroxine Sodium (Synthroid) 150 mcg PO DAILY@0630 [facility] Last Admin: 06/29/18 06:15 Dose: 150 mcg Methylprednisolone (Solu-Medrol) 40 mg IVP Q12 [facility] Last Admin: 06/28/18 22:10 Dose: 40 mg Rosuvastatin Calcium (Crestor) 5 mg PO HS [facility] Last Admin: 06/28/18 22:10 Dose: 5 mg Tiotropium [place] (Spiriva) 18 mcg INH RQ24 [facility] Last Admin: 06/29/18 07:45 Dose: 18 mcg - Labs Labs: 06/29/18 05:54 06/29/18 05:54 - Constitutional Appears: Well, No Acute Distress - ENT Exam ENT Exam: Mucous Membranes Moist - Respiratory Exam Respiratory Exam: Clear to Ausculation Bilateral, NORMAL BREATHING PATTERN - Cardiovascular Exam Cardiovascular Exam: REGULAR RHYTHM. absent: JVD - GI/Abdominal Exam GI & Abdominal Exam: Soft. absent: Distended, Tenderness - Extremities Exam Extremities Exam: absent: Calf Tenderness - Neurological Exam Neurological Exam: Alert - Psychiatric Exam Psychiatric exam: Normal Mood - Skin Skin Exam: Dry, Warm Assessment and Plan - Assessment and Plan (Free Text) Plan: esrd copd chf svt controlled Continue to follow cardiology recommendations next dialysis tentatively 07/01
[2018-06-29 09:16] LABS: BANDS 4 % (0-2); LYMPHOCYTE 2 % (20-40); TOTAL CELLS COUNTED 100
[2018-06-29 09:17] LABS: MONOCYTE 1 % (0-10); NEUTROPHIL 93 % (50-75)
[2018-06-29 09:21] LABS: ANISOCYTOSIS SLIGHT; HYPOCHROMIC SLIGHT; PLATELET ESTIMATE NORMAL (NORMAL); POIKILOCYTOSIS SLIGHT; POLYCHROMIC SLIGHT
[2018-06-29 09:23] LABS: OVALOCYTES SLIGHT
[2018-06-29 09:24] LABS: MICROCYTOSIS SLIGHT; TEARDROP CELLS SLIGHT
[2018-06-29 09:26] LABS: LARGE PLATELETS PRESENT
[2018-06-29] MEDS: Azithromycin 500 MG in Sodium Chloride 0.9% 250 ML IVPB SCH (10:42)
[2018-06-29] MEDS: diltiaZEM 240 mg/24 Hours CD Cap PO SCH (10:42)
[2018-06-29] MEDS: MethylPREDNISolone 40 mg Vial IVP SCH ×2 (10:43→21:10)
[2018-06-29] MEDS: Insulin Detemir 100 units/ml Vial (Levemir) SC SCH ×2 (11:57→22:15)
[2018-06-29] MEDS ORDERED: Budesonide 0.25 mg/2 ml Inhal Susp UD IH SCH (14:00)
--- NOTE | 2018-06-29 17:00 | CP.PCM.PN ---
Subjective - Date & Time of Evaluation Date of Evaluation: 06/29/18 Time of Evaluation: 16:58 - Subjective Subjective: Pt is seen and examined Sitting in chair comfortably Objective - Vital Signs/Intake and Output Vital Signs (last 24 hours): Temp Pulse Resp BP Pulse Ox 98.2 F 79 22 138/57 L 96 06/29/18 16:00 06/29/18 16:00 06/29/18 16:00 06/29/18 16:00 06/29/18 16:00 Intake and Output: 06/29/18 06/29/18 06:59 18:59 Intake Total 160 Output Total 40 Balance 120 - Medications Medications: Current Medications Acetaminophen (Tylenol 325mg Tab) 650 mg PO Q6 PRN PRN Reason: Fever >100.4 F Last Admin: 06/26/18 18:19 Dose: 650 mg Apixaban (Eliquis) 2.5 mg PO BID [facility] Last Admin: 06/29/18 10:42 Dose: 2.5 mg Budesonide (Pulmicort Respules) 1 mg IH RBID [facility] Calcium Acetate (Phoslo) 667 mg PO TID [facility] Last Admin: 06/29/18 13:52 Dose: 667 mg Diltiazem HCl (Cardizem Cd) 240 mg PO DAILY [facility] Last Admin: 06/29/18 10:42 Dose: 240 mg Epoetin Eddie (Procrit) 10,000 unit IV MWF [facility] Last Admin: 06/28/18 13:33 Dose: 10,000 unit Famotidine (Pepcid) 20 mg PO DAILY [facility] Last Admin: 06/29/18 10:42 Dose: 20 mg Ferrous Sulfate (Feosol) 325 mg PO DAILY [facility] Last Admin: 06/29/18 10:42 Dose: 325 mg Fluticasone/Vilanterol (Breo Ellipta 200-25 Mcg Inh) 1 puff INH RQD [facility] Last Admin: 06/29/18 07:45 Dose: 1 puff Glipizide (Glucotrol) 10 mg PO ACBD [facility] Last Admin: 06/29/18 16:48 Dose: 10 mg Guaifenesin/Dextromethorphan (Robitussin Dm) 10 ml PO Q4H PRN PRN Reason: Cough and congestion Last Admin: 06/29/18 10:42 Dose: 10 ml Azithromycin 500 mg/ Sodium (Chloride) 250 mls @ 250 mls/hr IVPB DAILY@1100 [facility]; Protocol Last Admin: 06/29/18 10:42 Dose: 250 mls/hr Cefepime HCl 1 gm/ Dextrose 50 mls @ 100 mls/hr IVPB Q24H [facility]; Protocol Last Admin: 06/28/18 18:09 Dose: 100 mls/hr Insulin Aspart (Novolog) 10 unit SC ONCE [facility] Insulin Aspart (Novolog) 0 unit SC ACHS [facility]; Protocol Last Admin: 06/29/18 16:48 Dose: 8 units Insulin Detemir (Levemir) 12 unit SC Q12H [facility] Last Admin: 06/29/18 11:57 Dose: 12 units Levothyroxine Sodium (Synthroid) 150 mcg PO DAILY@0630 [facility] Last Admin: 06/29/18 06:15 Dose: 150 mcg Methylprednisolone (Solu-Medrol) 40 mg IVP Q12 [facility] Last Admin: 06/29/18 10:43 Dose: 40 mg Rosuvastatin Calcium (Crestor) 5 mg PO HS [facility] Last Admin: 06/28/18 22:10 Dose: 5 mg Tiotropium [place] (Spiriva) 18 mcg INH RQ24 [facility] Last Admin: 06/29/18 07:45 Dose: 18 mcg - Labs Labs: 06/29/18 05:54 06/29/18 05:54 - Head Exam Head Exam: NORMAL INSPECTION - Eye Exam Eye Exam: Normal appearance - ENT Exam ENT Exam: Mucous Membranes Moist - Respiratory Exam Respiratory Exam: Decreased Breath Sounds - Cardiovascular Exam Cardiovascular Exam: REGULAR RHYTHM, +S1, +S2 - GI/Abdominal Exam GI & Abdominal Exam: Soft, Normal Bowel Sounds - Extremities Exam Extremities Exam: Normal Inspection - Neurological Exam Neurological Exam: Alert, Oriented x3 Assessment and Plan (1) CHF exacerbation Status: Acute (2) Dyspnea Status: Acute (3) Atrial fibrillation with RVR Status: Resolved (4) COPD (chronic obstructive pulmonary disease) Status: Acute (5) ESRD (end stage renal disease) Status: Acute - Assessment and Plan (Free Text) Plan: Breo Ellipta Spiriva Taper steroids off Bronchodilators Abx HD as per schedule DVT/GI prophalaxis
--- NOTE | 2018-06-29 18:42 | CP.PCM.PN ---
Subjective - Date & Time of Evaluation Date of Evaluation: 06/29/18 Time of Evaluation: 11:30 - Subjective Subjective: pt seen and examined at bedside NAD, no acute overnight events noted hemodynamically stable resp better - less SOB no n/v/d, abdominal pain, no chest pain Objective - Vital Signs/Intake and Output Vital Signs (last 24 hours): Temp Pulse Resp BP Pulse Ox 98.2 F 79 22 138/57 L 96 06/29/18 16:00 06/29/18 16:00 06/29/18 16:00 06/29/18 16:00 06/29/18 16:00 Intake and Output: 06/29/18 06/29/18 06:59 18:59 Intake Total 160 Output Total 40 Balance 120 - Medications Medications: Current Medications Acetaminophen (Tylenol 325mg Tab) 650 mg PO Q6 PRN PRN Reason: Fever >100.4 F Last Admin: 06/26/18 18:19 Dose: 650 mg Apixaban (Eliquis) 2.5 mg PO BID [facility] Last Admin: 06/29/18 17:49 Dose: 2.5 mg Budesonide (Pulmicort Respules) 1 mg IH RBID [facility] Calcium Acetate (Phoslo) 667 mg PO TID [facility] Last Admin: 06/29/18 17:48 Dose: 667 mg Diltiazem HCl (Cardizem Cd) 240 mg PO DAILY [facility] Last Admin: 06/29/18 10:42 Dose: 240 mg Epoetin Eddie (Procrit) 10,000 unit IV MWF [facility] Last Admin: 06/28/18 13:33 Dose: 10,000 unit Famotidine (Pepcid) 20 mg PO DAILY [facility] Last Admin: 06/29/18 10:42 Dose: 20 mg Ferrous Sulfate (Feosol) 325 mg PO DAILY [facility] Last Admin: 06/29/18 10:42 Dose: 325 mg Fluticasone/Vilanterol (Breo Ellipta 200-25 Mcg Inh) 1 puff INH RQD [facility] Last Admin: 06/29/18 07:45 Dose: 1 puff Glipizide (Glucotrol) 10 mg PO ACBD [facility] Last Admin: 06/29/18 16:48 Dose: 10 mg Guaifenesin/Dextromethorphan (Robitussin Dm) 10 ml PO Q4H PRN PRN Reason: Cough and congestion Last Admin: 06/29/18 17:48 Dose: 10 ml Azithromycin 500 mg/ Sodium (Chloride) 250 mls @ 250 mls/hr IVPB DAILY@1100 [facility]; Protocol Last Admin: 06/29/18 10:42 Dose: 250 mls/hr Cefepime HCl 1 gm/ Dextrose 50 mls @ 100 mls/hr IVPB Q24H [facility]; Protocol Last Admin: 06/28/18 18:09 Dose: 100 mls/hr Insulin Aspart (Novolog) 10 unit SC ONCE [facility] Insulin Aspart (Novolog) 0 unit SC ACHS [facility]; Protocol Last Admin: 06/29/18 16:48 Dose: 8 units Insulin Detemir (Levemir) 12 unit SC Q12H [facility] Last Admin: 06/29/18 11:57 Dose: 12 units Levothyroxine Sodium (Synthroid) 150 mcg PO DAILY@0630 [facility] Last Admin: 06/29/18 06:15 Dose: 150 mcg Methylprednisolone (Solu-Medrol) 40 mg IVP Q12 [facility] Last Admin: 06/29/18 10:43 Dose: 40 mg Rosuvastatin Calcium (Crestor) 5 mg PO HS [facility] Last Admin: 06/28/18 22:10 Dose: 5 mg Tiotropium [place] (Spiriva) 18 mcg INH RQ24 [facility] Last Admin: 06/29/18 07:45 Dose: 18 mcg - Labs Labs: 06/29/18 05:54 06/29/18 05:54 - Constitutional Appears: Well - Head Exam Head Exam: ATRAUMATIC, NORMAL INSPECTION, NORMOCEPHALIC - Eye Exam Eye Exam: EOMI, Normal appearance, PERRL Pupil Exam: NORMAL ACCOMODATION, PERRL - ENT Exam ENT Exam: Mucous Membranes Moist, Normal Exam - Neck Exam Neck Exam: Full ROM, Normal Inspection. absent: Lymphadenopathy - Respiratory Exam Respiratory Exam: Decreased Breath Sounds - Cardiovascular Exam Cardiovascular Exam: REGULAR RHYTHM, +S1, +S2 - GI/Abdominal Exam GI & Abdominal Exam: Soft, Diminished Bowel Sounds - Rectal Exam Rectal Exam: Deferred Assessment and Plan (1) CHF exacerbation Status: Acute (2) Dyspnea Status: Acute (3) ESRD (end stage renal disease) on dialysis Status: Acute (4) Uncontrolled diabetes mellitus Status: Acute (5) MARIA EUGENIA (acute kidney injury) Status: Acute (6) Abdominal pain Status: Acute (7) Acute bronchitis Status: Acute (8) Acute kidney injury Status: Acute (9) Acute kidney injury superimposed on chronic kidney disease Status: Acute (10) Acute respiratory failure Status: Acute (11) Anemia Status: Acute (12) Anemia of chronic disease Status: Acute (13) Atrial fibrillation with controlled ventricular response Status: Acute (14) Back pain of thoracolumbar region Status: Acute (15) Bronchitis Status: Acute (16) Bronchitis Status: Acute (17) CHF (congestive heart failure) Status: Acute (18) CHF (congestive heart failure) Status: Acute (19) CKD (chronic kidney disease) stage 3, GFR 30-59 ml/min Status: Acute (20) COPD (chronic obstructive pulmonary disease) Status: Acute (21) COPD exacerbation Status: Acute (22) COPD exacerbation Status: Acute (23) Chest pain Status: Acute (24) ESR raised Status: Acute (25) ESRD (end stage renal disease) Status: Acute (26) Fluid overload Status: Acute (27) Fluid overload, unspecified Status: Acute (28) Gastritis Status: Acute (29) Hepatitis Status: Acute (30) History of asthma Status: Acute (31) History of atrial fibrillation Status: Acute (32) History of back pain Status: Acute (33) History of gastroesophageal reflux (GERD) Status: Acute (34) Hypercalcemia Status: Acute (35) Hyperlipemia Status: Acute (36) Influenza Status: Acute (37) Leucocytosis Status: Acute (38) Lower extremity pain Status: Acute (39) Multiple myeloma Status: Acute (40) Multiple myeloma Status: Acute (41) Myeloma Status: Acute (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 (43) Occult gastrointestinal hemorrhage Status: Acute (44) Paroxysmal A-fib Status: Acute (45) Pneumonia Status: Acute (46) Prophylactic measure Status: Acute (47) Pulmonary hypertension Status: Acute (48) Pulmonary hypertension Status: Acute (49) Renal failure Status: Acute (50) Respiratory tract infection Status: Acute (51) Streptococcus pneumoniae Status: Acute (52) Symptomatic anemia Status: Acute (53) Vertigo Status: Acute (54) Worsening renal function Status: Acute (55) Anemia Status: Chronic (56) Asthma Status: Chronic (57) Atrial fibrillation Status: Chronic (58) Chronic diastolic (congestive) heart failure Status: Chronic (59) Diabetes Status: Chronic (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
[2018-06-30] MEDS: guaiFENesin DM 200 mg-20 mg/10 ml UD PO PRN ×4 (03:30→17:09)
[2018-06-30] MEDS: Levothyroxine 150 MCG TAB PO SCH (06:04)
[2018-06-30 06:36] LABS: BASO # 0.1 K/uL (0.0-0.2); BASO % 0.2 % (0.0-2.0); HEMOGLOBIN 7.9 g/dL (11.0-16.0); LYMPH # 0.7 K/uL (1.0-4.3); LYMPH % 2.8 % (20.0-40.0); MEAN CELL VOLUME 87.4 fL (81.0-99.0); MEAN CORPUSCULAR HEMOGLOBIN 26.9 pg (27.0-31.0); MEAN CORPUSCULAR HGB CONC 30.7 g/dL (33.0-37.0); MEAN PLATELET VOLUME 10.4 fL (7.2-11.7); MONO # 0.6 K/uL (0.0-0.8); MONO % 2.3 % (0.0-10.0); NEUT # 25.1 K/uL (1.8-7.0); NEUT % 94.7 % (50.0-75.0); PLATELET COUNT 270 K/uL (130-400); RBC 2.94 Mil/uL (3.80-5.20); RED CELL DISTRIBUTION WIDTH 16.8 % (11.5-14.5)
[2018-06-30 06:41] LABS: ALB/GLOB RATIO 0.8 (1.0-2.1); ALBUMIN 2.7 g/dL (3.5-5.0); CALCIUM 8.4 mg/dl (8.6-10.4)
[2018-06-30 07:02] LABS: WHITE BLOOD COUNT 26.6 K/uL (4.8-10.8)
[2018-06-30] MEDS: (Novolog) Insulin Aspart, Recombinant 100 u/ml 10 ml vial SC SCH ×4 (07:30→23:14)
--- NOTE | 2018-06-30 07:43 | CP.PCM.PN ---
Subjective - Date & Time of Evaluation Date of Evaluation: 06/30/18 Time of Evaluation: 07:40 - Subjective Subjective: Seen and examined No chest pain or dyspnea Objective - Vital Signs/Intake and Output Vital Signs (last 24 hours): Temp Pulse Resp BP Pulse Ox 98 F 66 18 130/47 L 100 06/30/18 04:00 06/30/18 04:00 06/30/18 04:00 06/30/18 04:00 06/30/18 04:00 Intake and Output: 06/30/18 06/30/18 06:59 18:59 Intake Total 50 150 Balance 50 150 - Medications Medications: Current Medications Acetaminophen (Tylenol 325mg Tab) 650 mg PO Q6 PRN PRN Reason: Fever >100.4 F Last Admin: 06/26/18 18:19 Dose: 650 mg Apixaban (Eliquis) 2.5 mg PO BID [facility] Last Admin: 06/29/18 17:49 Dose: 2.5 mg Budesonide (Pulmicort Respules) 1 mg IH RBID [facility] Calcium Acetate (Phoslo) 667 mg PO TID [facility] Last Admin: 06/29/18 17:48 Dose: 667 mg Diltiazem HCl (Cardizem Cd) 240 mg PO DAILY [facility] Last Admin: 06/29/18 10:42 Dose: 240 mg Epoetin Eddie (Procrit) 10,000 unit IV MWF [facility] Last Admin: 06/28/18 13:33 Dose: 10,000 unit Famotidine (Pepcid) 20 mg PO DAILY [facility] Last Admin: 06/29/18 10:42 Dose: 20 mg Ferrous Sulfate (Feosol) 325 mg PO DAILY [facility] Last Admin: 06/29/18 10:42 Dose: 325 mg Fluticasone/Vilanterol (Breo Ellipta 200-25 Mcg Inh) 1 puff INH RQD [facility] Last Admin: 06/29/18 07:45 Dose: 1 puff Glipizide (Glucotrol) 10 mg PO ACBD [facility] Last Admin: 06/29/18 16:48 Dose: 10 mg Guaifenesin/Dextromethorphan (Robitussin Dm) 10 ml PO Q4H PRN PRN Reason: Cough and congestion Last Admin: 06/30/18 03:30 Dose: 10 ml Azithromycin 500 mg/ Sodium (Chloride) 250 mls @ 250 mls/hr IVPB DAILY@1100 [facility]; Protocol Last Admin: 06/29/18 10:42 Dose: 250 mls/hr Cefepime HCl 1 gm/ Dextrose 50 mls @ 100 mls/hr IVPB Q24H [facility]; Protocol Last Admin: 06/29/18 18:42 Dose: 100 mls/hr Insulin Aspart (Novolog) 10 unit SC ONCE [facility] Insulin Aspart (Novolog) 0 unit SC ACHS [facility]; Protocol Last Admin: 06/29/18 16:48 Dose: 8 units Insulin Detemir (Levemir) 12 unit SC Q12H [facility] Last Admin: 06/29/18 22:15 Dose: 12 units Levothyroxine Sodium (Synthroid) 150 mcg PO DAILY@0630 [facility] Last Admin: 06/30/18 06:04 Dose: 150 mcg Methylprednisolone (Solu-Medrol) 40 mg IVP Q12 [facility] Last Admin: 06/29/18 21:10 Dose: 40 mg Rosuvastatin Calcium (Crestor) 5 mg PO HS [facility] Last Admin: 06/29/18 21:10 Dose: 5 mg Tiotropium [place] (Spiriva) 18 mcg INH RQ24 [facility] Last Admin: 06/29/18 07:45 Dose: 18 mcg - Labs Labs: 06/30/18 06:20 06/30/18 06:20 - Constitutional Appears: Well - Head Exam Head Exam: ATRAUMATIC, NORMOCEPHALIC - Eye Exam Pupil Exam: PERRL - Respiratory Exam Respiratory Exam: NORMAL BREATHING PATTERN. absent: Rhonchi, Wheezes - Cardiovascular Exam Cardiovascular Exam: RRR, +S1, +S2. absent: JVD - GI/Abdominal Exam GI & Abdominal Exam: Soft. absent: Tenderness - Neurological Exam Neurological Exam: CN II-XII Intact, Oriented x3 Assessment and Plan (1) Paroxysmal atrial fibrillation Assessment & Plan: In normal sinus rhtythm Cont with with apixaban for stroke prevention Diltiazem for rate control STable from cardiology perspective Follow up with Dr. Gold after discharge Status: Acute (2) COPD exacerbation Assessment & Plan: Improved Cont with nebs/steroids as per primary team Status: Acute
[2018-06-30] MEDS: Tiotropium 18 mcg Cap For Inhalation INH SCH (07:44)
[2018-06-30] MEDS: Fluticasone-Vilanterol 200/25mcg Diskus INH SCH (07:44)
[2018-06-30 09:18] LABS: BANDS 4 % (0-2); LYMPHOCYTE 3 % (20-40); MONOCYTE 2 % (0-10); NEUTROPHIL 91 % (50-75); PLATELET ESTIMATE NORMAL (NORMAL); TOTAL CELLS COUNTED 100
[2018-06-30 09:19] LABS: ANISOCYTOSIS MODERATE; HYPOCHROMIC MODERATE; POLYCHROMIC SLIGHT
[2018-06-30] MEDS: MethylPREDNISolone 40 mg Vial IVP SCH ×2 (10:04→23:16)
[2018-06-30] MEDS: diltiaZEM 240 mg/24 Hours CD Cap PO SCH (10:04)
[2018-06-30] MEDS: Insulin Detemir 100 units/ml Vial (Levemir) SC SCH ×2 (10:09→23:16)
[2018-06-30] MEDS: Azithromycin 500 MG in Sodium Chloride 0.9% 250 ML IVPB SCH (10:13)
--- NOTE | 2018-06-30 14:38 | CP.PCM.PN ---
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 ) denies dysuria no fever less cough NAD Objective - Vital Signs/Intake and Output Vital Signs (last 24 hours): Temp Pulse Resp BP Pulse Ox 98.3 F 70 18 130/47 L 100 06/30/18 08:00 06/30/18 08:00 06/30/18 04:00 06/30/18 04:00 06/30/18 04:00 Intake and Output: 06/30/18 06/30/18 06:59 18:59 Intake Total 50 150 Balance 50 150 - Medications Medications: Current Medications Acetaminophen (Tylenol 325mg Tab) 650 mg PO Q6 PRN PRN Reason: Fever >100.4 F Last Admin: 06/26/18 18:19 Dose: 650 mg Apixaban (Eliquis) 2.5 mg PO BID [facility] Last Admin: 06/30/18 10:03 Dose: 2.5 mg Budesonide (Pulmicort Respules) 1 mg IH RBID [facility] Calcium Acetate (Phoslo) 667 mg PO TID [facility] Last Admin: 06/30/18 13:47 Dose: 667 mg Diltiazem HCl (Cardizem Cd) 240 mg PO DAILY [facility] Last Admin: 06/30/18 10:04 Dose: 240 mg Epoetin Eddie (Procrit) 10,000 unit IV MWF [facility] Last Admin: 06/28/18 13:33 Dose: 10,000 unit Famotidine (Pepcid) 20 mg PO DAILY [facility] Last Admin: 06/30/18 10:03 Dose: 20 mg Ferrous Sulfate (Feosol) 325 mg PO DAILY [facility] Last Admin: 06/30/18 10:03 Dose: 325 mg Fluticasone/Vilanterol (Breo Ellipta 200-25 Mcg Inh) 1 puff INH RQD [facility] Last Admin: 06/30/18 07:44 Dose: 1 puff Glipizide (Glucotrol) 10 mg PO ACBD [facility] Last Admin: 06/30/18 11:37 Dose: Not Given Guaifenesin/Dextromethorphan (Robitussin Dm) 10 ml PO Q4H PRN PRN Reason: Cough and congestion Last Admin: 06/30/18 13:46 Dose: 10 ml Azithromycin 500 mg/ Sodium (Chloride) 250 mls @ 250 mls/hr IVPB DAILY@1100 [facility]; Protocol Last Admin: 06/30/18 10:13 Dose: 250 mls/hr Cefepime HCl 1 gm/ Dextrose 50 mls @ 100 mls/hr IVPB Q24H [facility]; Protocol Last Admin: 06/29/18 18:42 Dose: 100 mls/hr Insulin Aspart (Novolog) 10 unit SC ONCE [facility] Insulin Aspart (Novolog) 0 unit SC ACHS [facility]; Protocol Last Admin: 06/30/18 12:07 Dose: 4 units Insulin Detemir (Levemir) 12 unit SC Q12H [facility] Last Admin: 06/30/18 10:09 Dose: 12 units Levothyroxine Sodium (Synthroid) 150 mcg PO DAILY@0630 [facility] Last Admin: 06/30/18 06:04 Dose: 150 mcg Methylprednisolone (Solu-Medrol) 40 mg IVP Q12 [facility] Last Admin: 06/30/18 10:04 Dose: 40 mg Rosuvastatin Calcium (Crestor) 5 mg PO HS [facility] Last Admin: 06/29/18 21:10 Dose: 5 mg Tiotropium [place] (Spiriva) 18 mcg INH RQ24 [facility] Last Admin: 06/30/18 07:44 Dose: 18 mcg - Labs Labs: 06/30/18 06:20 06/30/18 06:20 - Constitutional Appears: Non-toxic, Confused, Cachectic, Chronically Ill - Head Exam Head Exam: NORMOCEPHALIC - Eye Exam Eye Exam: absent: Scleral icterus - ENT Exam ENT Exam: Mucous Membranes Dry - Neck Exam Neck Exam: absent: Lymphadenopathy - Respiratory Exam Respiratory Exam: Decreased Breath Sounds - Cardiovascular Exam Cardiovascular Exam: REGULAR RHYTHM - GI/Abdominal Exam GI & Abdominal Exam: Distended - Rectal Exam Rectal Exam: Deferred - Exam Exam: NORMAL INSPECTION - Extremities Exam Extremities Exam: absent: Pedal Edema - Back Exam Back Exam: absent: CVA tenderness (L), CVA tenderness (R) - Neurological Exam Neurological Exam: Alert, Awake, CN II-XII Intact - Psychiatric Exam Psychiatric exam: Depressed Assessment and Plan (1) CHF exacerbation Status: Acute (2) Chronic a-fib Status: Acute (3) Dyspnea Status: Acute (4) ESRD (end stage renal disease) on dialysis Status: Acute (5) Uncontrolled diabetes mellitus Status: Acute - Assessment and Plan (Free Text) Assessment: severe CHF/ COPD reactive leukocytosis
--- NOTE | 2018-06-30 17:51 | CP.PCM.PN ---
Subjective - Date & Time of Evaluation Date of Evaluation: 06/30/18 Time of Evaluation: 17:51 Objective - Vital Signs/Intake and Output Vital Signs (last 24 hours): Temp Pulse Resp BP Pulse Ox 98.1 F 76 15 126/74 98 06/30/18 16:00 06/30/18 16:00 06/30/18 16:00 06/30/18 16:00 06/30/18 16:00 Intake and Output: 06/30/18 06/30/18 06:59 18:59 Intake Total 50 150 Balance 50 150 - Medications Medications: Current Medications Acetaminophen (Tylenol 325mg Tab) 650 mg PO Q6 PRN PRN Reason: Fever >100.4 F Last Admin: 06/26/18 18:19 Dose: 650 mg Apixaban (Eliquis) 2.5 mg PO BID [facility] Last Admin: 06/30/18 17:09 Dose: 2.5 mg Budesonide (Pulmicort Respules) 1 mg IH RBID [facility] Calcium Acetate (Phoslo) 667 mg PO TID [facility] Last Admin: 06/30/18 17:09 Dose: 667 mg Diltiazem HCl (Cardizem Cd) 240 mg PO DAILY [facility] Last Admin: 06/30/18 10:04 Dose: 240 mg Epoetin Eddie (Procrit) 10,000 unit IV MWF [facility] Last Admin: 06/28/18 13:33 Dose: 10,000 unit Famotidine (Pepcid) 20 mg PO DAILY [facility] Last Admin: 06/30/18 10:03 Dose: 20 mg Ferrous Sulfate (Feosol) 325 mg PO DAILY [facility] Last Admin: 06/30/18 10:03 Dose: 325 mg Fluticasone/Vilanterol (Breo Ellipta 200-25 Mcg Inh) 1 puff INH RQD [facility] Last Admin: 06/30/18 07:44 Dose: 1 puff Glipizide (Glucotrol) 10 mg PO ACBD [facility] Last Admin: 06/30/18 16:42 Dose: 10 mg Guaifenesin/Dextromethorphan (Robitussin Dm) 10 ml PO Q4H PRN PRN Reason: Cough and congestion Last Admin: 06/30/18 17:09 Dose: 10 ml Azithromycin 500 mg/ Sodium (Chloride) 250 mls @ 250 mls/hr IVPB DAILY@1100 [facility]; Protocol Last Admin: 06/30/18 10:13 Dose: 250 mls/hr Cefepime HCl 1 gm/ Dextrose 50 mls @ 100 mls/hr IVPB Q24H [facility]; Protocol Last Admin: 06/29/18 18:42 Dose: 100 mls/hr Insulin Aspart (Novolog) 10 unit SC ONCE [facility] Insulin Aspart (Novolog) 0 unit SC ACHS [facility]; Protocol Last Admin: 06/30/18 16:42 Dose: 8 units Insulin Detemir (Levemir) 12 unit SC Q12H [facility] Last Admin: 06/30/18 10:09 Dose: 12 units Levothyroxine Sodium (Synthroid) 150 mcg PO DAILY@0630 [facility] Last Admin: 06/30/18 06:04 Dose: 150 mcg Methylprednisolone (Solu-Medrol) 40 mg IVP Q12 [facility] Last Admin: 06/30/18 10:04 Dose: 40 mg Rosuvastatin Calcium (Crestor) 5 mg PO HS [facility] Last Admin: 06/29/18 21:10 Dose: 5 mg Tiotropium [place] (Spiriva) 18 mcg INH RQ24 [facility] Last Admin: 06/30/18 07:44 Dose: 18 mcg - Labs Labs: 06/30/18 06:20 06/30/18 06:20 Assessment and Plan (1) CHF exacerbation Status: Acute (2) Dyspnea Status: Acute (3) Atrial fibrillation with RVR Status: Resolved (4) COPD (chronic obstructive pulmonary disease) Status: Acute (5) ESRD (end stage renal disease) Status: Acute
--- NOTE | 2018-06-30 19:39 | CP.PCM.PN ---
Subjective - Date & Time of Evaluation Date of Evaluation: 06/30/18 Time of Evaluation: 11:45 - Subjective Subjective: Pt seen and examined at bedside no acute overnight events sob improving no fever, chills, chest pain, abdominal pain consultants following Objective - Vital Signs/Intake and Output Vital Signs (last 24 hours): Temp Pulse Resp BP Pulse Ox 98.1 F 76 15 126/74 98 06/30/18 16:00 06/30/18 16:00 06/30/18 16:00 06/30/18 16:00 06/30/18 16:00 Intake and Output: 06/30/18 07/01/18 18:59 06:59 Intake Total 450 Balance 450 - Medications Medications: Current Medications Acetaminophen (Tylenol 325mg Tab) 650 mg PO Q6 PRN PRN Reason: Fever >100.4 F Last Admin: 06/26/18 18:19 Dose: 650 mg Apixaban (Eliquis) 2.5 mg PO BID [facility] Last Admin: 06/30/18 17:09 Dose: 2.5 mg Budesonide (Pulmicort Respules) 1 mg IH RBID [facility] Calcium Acetate (Phoslo) 667 mg PO TID [facility] Last Admin: 06/30/18 17:09 Dose: 667 mg Diltiazem HCl (Cardizem Cd) 240 mg PO DAILY [facility] Last Admin: 06/30/18 10:04 Dose: 240 mg Epoetin Eddie (Procrit) 10,000 unit IV MWF [facility] Last Admin: 06/28/18 13:33 Dose: 10,000 unit Famotidine (Pepcid) 20 mg PO DAILY [facility] Last Admin: 06/30/18 10:03 Dose: 20 mg Ferrous Sulfate (Feosol) 325 mg PO DAILY [facility] Last Admin: 06/30/18 10:03 Dose: 325 mg Fluticasone/Vilanterol (Breo Ellipta 200-25 Mcg Inh) 1 puff INH RQD [facility] Last Admin: 06/30/18 07:44 Dose: 1 puff Glipizide (Glucotrol) 10 mg PO ACBD [facility] Last Admin: 06/30/18 16:42 Dose: 10 mg Guaifenesin/Dextromethorphan (Robitussin Dm) 10 ml PO Q4H PRN PRN Reason: Cough and congestion Last Admin: 06/30/18 17:09 Dose: 10 ml Azithromycin 500 mg/ Sodium (Chloride) 250 mls @ 250 mls/hr IVPB DAILY@1100 [facility]; Protocol Last Admin: 06/30/18 10:13 Dose: 250 mls/hr Cefepime HCl 1 gm/ Dextrose 50 mls @ 100 mls/hr IVPB Q24H [facility]; Protocol Last Admin: 06/30/18 18:34 Dose: 100 mls/hr Insulin Aspart (Novolog) 10 unit SC ONCE [facility] Insulin Aspart (Novolog) 0 unit SC ACHS [facility]; Protocol Last Admin: 06/30/18 16:42 Dose: 8 units Insulin Detemir (Levemir) 12 unit SC Q12H [facility] Last Admin: 06/30/18 10:09 Dose: 12 units Levothyroxine Sodium (Synthroid) 150 mcg PO DAILY@0630 [facility] Last Admin: 06/30/18 06:04 Dose: 150 mcg Methylprednisolone (Solu-Medrol) 40 mg IVP Q12 [facility] Last Admin: 06/30/18 10:04 Dose: 40 mg Rosuvastatin Calcium (Crestor) 5 mg PO HS [facility] Last Admin: 06/29/18 21:10 Dose: 5 mg Tiotropium [place] (Spiriva) 18 mcg INH RQ24 [facility] Last Admin: 06/30/18 07:44 Dose: 18 mcg - Labs Labs: 06/30/18 06:20 06/30/18 06:20 - Constitutional Appears: Well - Head Exam Head Exam: ATRAUMATIC, NORMAL INSPECTION, NORMOCEPHALIC - Eye Exam Eye Exam: EOMI, Normal appearance, PERRL Pupil Exam: NORMAL ACCOMODATION, PERRL - ENT Exam ENT Exam: Mucous Membranes Moist, Normal Exam - Neck Exam Neck Exam: Full ROM, Normal Inspection. absent: Lymphadenopathy - Respiratory Exam Respiratory Exam: Decreased Breath Sounds - Cardiovascular Exam Cardiovascular Exam: REGULAR RHYTHM, +S1, +S2 - GI/Abdominal Exam GI & Abdominal Exam: Soft, Diminished Bowel Sounds - Rectal Exam Rectal Exam: Deferred Assessment and Plan (1) CHF exacerbation Status: Acute (2) Dyspnea Status: Acute (3) ESRD (end stage renal disease) on dialysis Status: Acute (4) Uncontrolled diabetes mellitus Status: Acute (5) MARIA EUGENIA (acute kidney injury) Status: Acute (6) Abdominal pain Status: Acute (7) Acute bronchitis Status: Acute (8) Acute kidney injury Status: Acute (9) Acute kidney injury superimposed on chronic kidney disease Status: Acute (10) Acute respiratory failure Status: Acute (11) Anemia Status: Acute (12) Anemia of chronic disease Status: Acute (13) Atrial fibrillation with controlled ventricular response Status: Acute (14) Back pain of thoracolumbar region Status: Acute (15) Bronchitis Status: Acute (16) Bronchitis Status: Acute (17) CHF (congestive heart failure) Status: Acute (18) CHF (congestive heart failure) Status: Acute (19) CKD (chronic kidney disease) stage 3, GFR 30-59 ml/min Status: Acute (20) COPD (chronic obstructive pulmonary disease) Status: Acute (21) COPD exacerbation Status: Acute (22) COPD exacerbation Status: Acute (23) Chest pain Status: Acute (24) ESR raised Status: Acute (25) ESRD (end stage renal disease) Status: Acute (26) Fluid overload Status: Acute (27) Fluid overload, unspecified Status: Acute (28) Gastritis Status: Acute (29) Hepatitis Status: Acute (30) History of asthma Status: Acute (31) History of atrial fibrillation Status: Acute (32) History of back pain Status: Acute (33) History of gastroesophageal reflux (GERD) Status: Acute (34) Hypercalcemia Status: Acute (35) Hyperlipemia Status: Acute (36) Influenza Status: Acute (37) Leucocytosis Status: Acute (38) Lower extremity pain Status: Acute (39) Multiple myeloma Status: Acute (40) Multiple myeloma Status: Acute (41) Myeloma Status: Acute (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 (43) Occult gastrointestinal hemorrhage Status: Acute (44) Paroxysmal A-fib Status: Acute (45) Pneumonia Status: Acute (46) Prophylactic measure Status: Acute (47) Pulmonary hypertension Status: Acute (48) Pulmonary hypertension Status: Acute (49) Renal failure Status: Acute (50) Respiratory tract infection Status: Acute (51) Streptococcus pneumoniae Status: Acute (52) Symptomatic anemia Status: Acute (53) Vertigo Status: Acute (54) Worsening renal function Status: Acute (55) Anemia Status: Chronic (56) Asthma Status: Chronic (57) Atrial fibrillation Status: Chronic (58) Chronic diastolic (congestive) heart failure Status: Chronic (59) Diabetes Status: Chronic (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
[2018-07-01] MEDS: guaiFENesin DM 200 mg-20 mg/10 ml UD PO PRN ×3 (01:13→16:03)
[2018-07-01] MEDS: Levothyroxine 150 MCG TAB PO SCH (06:03)
[2018-07-01 06:41] LABS: BASO # 0.1 K/uL (0.0-0.2); BASO % 0.4 % (0.0-2.0); HEMOGLOBIN 8.3 g/dL (11.0-16.0); LYMPH # 0.8 K/uL (1.0-4.3); LYMPH % 2.5 % (20.0-40.0); MEAN CELL VOLUME 87.6 fL (81.0-99.0); MEAN CORPUSCULAR HEMOGLOBIN 26.6 pg (27.0-31.0); MEAN CORPUSCULAR HGB CONC 30.4 g/dL (33.0-37.0); MEAN PLATELET VOLUME 10.1 fL (7.2-11.7); MONO # 0.8 K/uL (0.0-0.8); MONO % 2.5 % (0.0-10.0); NEUT # 28.9 K/uL (1.8-7.0); NEUT % 94.6 % (50.0-75.0); PLATELET COUNT 331 K/uL (130-400); RBC 3.13 Mil/uL (3.80-5.20); RED CELL DISTRIBUTION WIDTH 17.1 % (11.5-14.5); WHITE BLOOD COUNT 30.6 K/uL (4.8-10.8)
[2018-07-01 06:55] LABS: ALBUMIN 3.1 g/dL (3.5-5.0); CALCIUM 8.6 mg/dl (8.6-10.4)
[2018-07-01] MEDS: (Novolog) Insulin Aspart, Recombinant 100 u/ml 10 ml vial SC SCH ×4 (07:30→22:24)
[2018-07-01] MEDS ORDERED: Budesonide 0.25 mg/2 ml Inhal Susp UD IH SCH ×2 (08:00→20:00)
[2018-07-01 08:39] LABS: ANISOCYTOSIS SLIGHT; LYMPHOCYTE 3 % (20-40); MONOCYTE 2 % (0-10); NEUTROPHIL 95 % (50-75); PLATELET ESTIMATE NORMAL (NORMAL); TOTAL CELLS COUNTED 100
[2018-07-01 08:40] LABS: HYPOCHROMIC SLIGHT; LARGE PLATELETS PRESENT; OVALOCYTES SLIGHT; POIKILOCYTOSIS SLIGHT; TEARDROP CELLS SLIGHT
[2018-07-01] MEDS: diltiaZEM 240 mg/24 Hours CD Cap PO SCH (09:31)
[2018-07-01] MEDS: Epoetin Alfa 10,000 unit/ml Dialysis IV SCH (09:55)
[2018-07-01] MEDS: Budesonide 0.25 mg/2 ml Inhal Susp UD IH SCH ×2 (10:00→19:47)
--- NOTE | 2018-07-01 10:11 | CP.PCM.PN ---
Subjective - Date & Time of Evaluation Date of Evaluation: 07/01/18 Time of Evaluation: 10:08 - Subjective Subjective: seen on dialysis; tolerating treatment UF 2900ml earlier had epistaxis x 2 on eliguis HR- normal, no more SVT episodes no n, v, fevers, tachy, CPs, SOB Objective - Vital Signs/Intake and Output Vital Signs (last 24 hours): Temp Pulse Resp BP Pulse Ox 97.4 F L 87 13 130/55 L 98 07/01/18 09:20 07/01/18 09:20 07/01/18 09:15 07/01/18 09:50 07/01/18 09:20 - Medications Medications: Current Medications Acetaminophen (Tylenol 325mg Tab) 650 mg PO Q6 PRN PRN Reason: Fever >100.4 F Last Admin: 06/26/18 18:19 Dose: 650 mg Apixaban (Eliquis) 2.5 mg PO BID [facility] Last Admin: 07/01/18 09:31 Dose: 2.5 mg Budesonide (Pulmicort Respules) 1 mg IH RBID [facility] Calcium Acetate (Phoslo) 667 mg PO TID [facility] Last Admin: 07/01/18 09:31 Dose: 667 mg Diltiazem HCl (Cardizem Cd) 240 mg PO DAILY [facility] Last Admin: 07/01/18 09:31 Dose: 240 mg Epoetin Eddie (Procrit) 10,000 unit IV MWF [facility] Last Admin: 07/01/18 09:55 Dose: 10,000 unit Famotidine (Pepcid) 20 mg PO DAILY [facility] Last Admin: 07/01/18 09:31 Dose: 20 mg Ferrous Sulfate (Feosol) 325 mg PO DAILY [facility] Last Admin: 07/01/18 09:31 Dose: 325 mg Fluticasone/Vilanterol (Breo Ellipta 200-25 Mcg Inh) 1 puff INH RQD [facility] Last Admin: 06/30/18 07:44 Dose: 1 puff Glipizide (Glucotrol) 10 mg PO ACBD [facility] Last Admin: 07/01/18 07:46 Dose: 10 mg Guaifenesin/Dextromethorphan (Robitussin Dm) 10 ml PO Q4H PRN PRN Reason: Cough and congestion Last Admin: 03/18/19 09:31 Dose: 10 ml Azithromycin 500 mg/ Sodium (Chloride) 250 mls @ 250 mls/hr IVPB DAILY@1100 [facility]; Protocol Last Admin: 06/30/18 10:13 Dose: 250 mls/hr Cefepime HCl 1 gm/ Dextrose 50 mls @ 100 mls/hr IVPB Q24H [facility]; Protocol Last Admin: 06/30/18 18:34 Dose: 100 mls/hr Insulin Aspart (Novolog) 10 unit SC ONCE [facility] Insulin Aspart (Novolog) 0 unit SC ACHS [facility]; Protocol Last Admin: 06/30/18 23:14 Dose: Not Given Insulin Detemir (Levemir) 12 unit SC Q12H [facility] Last Admin: 06/30/18 23:16 Dose: 12 units Levothyroxine Sodium (Synthroid) 150 mcg PO DAILY@0630 [facility] Last Admin: 07/01/18 06:03 Dose: 150 mcg Methylprednisolone (Solu-Medrol) 40 mg IVP Q12 [facility] Last Admin: 06/30/18 23:16 Dose: 40 mg Rosuvastatin Calcium (Crestor) 5 mg PO HS [facility] Last Admin: 06/30/18 23:16 Dose: 5 mg Tiotropium [place] (Spiriva) 18 mcg INH RQ24 [facility] Last Admin: 06/30/18 07:44 Dose: 18 mcg - Labs Labs: 07/01/18 06:37 07/01/18 06:37 - Constitutional Appears: No Acute Distress, Chronically Ill - Head Exam Head Exam: ATRAUMATIC, NORMAL INSPECTION - Eye Exam Eye Exam: EOMI, Normal appearance - Neck Exam Neck Exam: Normal Inspection. absent: Tenderness - Respiratory Exam Respiratory Exam: Clear to Ausculation Bilateral, NORMAL BREATHING PATTERN - Cardiovascular Exam Cardiovascular Exam: REGULAR RHYTHM, +S1 - GI/Abdominal Exam GI & Abdominal Exam: Soft. absent: Tenderness - Extremities Exam Extremities Exam: Normal Inspection. absent: Tenderness - Neurological Exam Neurological Exam: Awake, CN II-XII Intact - Skin Skin Exam: Dry, Warm Assessment and Plan (1) Atrial fibrillation with RVR Status: Resolved (2) CHF exacerbation Status: Acute (3) COPD exacerbation Status: Acute (4) Multiple myeloma Status: Acute - Assessment and Plan (Free Text) Plan: dialysis now, MWF lower eliquis dose recheck h/h stop feso4 as ferritin elevated increase ca acetate dose
[2018-07-01] MEDS: Tiotropium 18 mcg Cap For Inhalation INH SCH (10:12)
[2018-07-01] MEDS: Fluticasone-Vilanterol 200/25mcg Diskus INH SCH (10:12)
[2018-07-01] MEDS: Insulin Detemir 100 units/ml Vial (Levemir) SC SCH ×2 (11:28→22:25)
[2018-07-01] MEDS: MethylPREDNISolone 40 mg Vial IVP SCH ×2 (13:02→22:24)
[2018-07-01] MEDS: Azithromycin 500 MG in Sodium Chloride 0.9% 250 ML IVPB SCH (13:02)
[2018-07-01] MEDS: BROMFENAC 0.07% OD SCH (17:49)
--- NOTE | 2018-07-01 18:12 | CP.PCM.PN ---
Subjective - Date & Time of Evaluation Date of Evaluation: 07/01/18 Time of Evaluation: 18:11 Objective - Vital Signs/Intake and Output Vital Signs (last 24 hours): Temp Pulse Resp BP Pulse Ox 97.9 F 91 H 13 110/51 L 98 07/01/18 15:44 07/01/18 17:05 07/01/18 17:05 07/01/18 17:05 07/01/18 17:05 Intake and Output: 07/01/18 07/01/18 06:59 18:59 Intake Total 360 Balance 360 - Medications Medications: Current Medications Acetaminophen (Tylenol 325mg Tab) 650 mg PO Q6 PRN PRN Reason: Fever >100.4 F Last Admin: 06/26/18 18:19 Dose: 650 mg Apixaban (Eliquis) 2.5 mg PO DAILY [facility] Budesonide (Pulmicort Respules) 1 mg IH RBID [facility] Last Admin: 07/01/18 10:00 Dose: 1 mg Calcium Acetate (Phoslo) 1,334 mg PO TID [facility] Last Admin: 07/01/18 17:10 Dose: 1,334 mg Diltiazem HCl (Cardizem Cd) 240 mg PO DAILY [facility] Epoetin Eddie (Procrit) 10,000 unit IV MWF [facility] Last Admin: 07/01/18 09:55 Dose: 10,000 unit Famotidine (Pepcid) 20 mg PO DAILY [facility] Last Admin: 07/01/18 09:31 Dose: 20 mg Fluticasone/Vilanterol (Breo Ellipta 200-25 Mcg Inh) 1 puff INH RQD [facility] Last Admin: 07/01/18 10:12 Dose: 1 puff Glipizide (Glucotrol) 10 mg PO ACBD [facility] Last Admin: 07/01/18 17:10 Dose: 10 mg Guaifenesin/Dextromethorphan (Robitussin Dm) 10 ml PO Q4H PRN PRN Reason: Cough and congestion Last Admin: 07/01/18 16:03 Dose: 10 ml Home Med (Patient's Own Drops) 1 drop OD DAILY [facility] Last Admin: 07/01/18 17:49 Dose: 1 drop Azithromycin 500 mg/ Sodium (Chloride) 250 mls @ 250 mls/hr IVPB DAILY@1100 [facility]; Protocol Last Admin: 07/01/18 13:02 Dose: 250 mls/hr Cefepime HCl 1 gm/ Dextrose 50 mls @ 100 mls/hr IVPB Q24H [facility]; Protocol Last Admin: 06/30/18 18:34 Dose: 100 mls/hr Insulin Aspart (Novolog) 10 unit SC ONCE [facility] Insulin Aspart (Novolog) 0 unit SC ACHS [facility]; Protocol Last Admin: 07/01/18 17:11 Dose: 2 units Insulin Detemir (Levemir) 12 unit SC Q12H [facility] Last Admin: 07/01/18 11:28 Dose: 12 units Levothyroxine Sodium (Synthroid) 150 mcg PO DAILY@0630 [facility] Last Admin: 07/01/18 06:03 Dose: 150 mcg Methylprednisolone (Solu-Medrol) 40 mg IVP Q12 [facility] Last Admin: 07/01/18 13:02 Dose: 40 mg Rosuvastatin Calcium (Crestor) 5 mg PO HS [facility] Last Admin: 06/30/18 23:16 Dose: 5 mg Tiotropium [place] (Spiriva) 18 mcg INH RQ24 [facility] Last Admin: 07/01/18 10:12 Dose: Not Given - Labs Labs: 07/01/18 06:37 07/01/18 06:37 Assessment and Plan (1) CHF exacerbation Status: Acute (2) Dyspnea Status: Acute (3) Atrial fibrillation with RVR Status: Resolved (4) COPD (chronic obstructive pulmonary disease) Status: Acute (5) ESRD (end stage renal disease) Status: Acute
--- NOTE | 2018-07-01 19:44 | CP.PCM.PN ---
Subjective - Date & Time of Evaluation Date of Evaluation: 07/01/18 Time of Evaluation: 17:30 - Subjective Subjective: pt is a little anxious, otherwise feels ok. Pt had dialysis today. Afterwards, rapid afib was noted. IV cardezem was begun and the pt returned to NSR. As Bp was low, 90 systolic, cardezem was stopped. BP now 110 systolic. Objective - Vital Signs/Intake and Output Vital Signs (last 24 hours): Temp Pulse Resp BP Pulse Ox 97.9 F 95 H 19 101/54 L 93 L 07/01/18 15:44 07/01/18 18:00 07/01/18 18:00 07/01/18 18:05 07/01/18 18:00 Intake and Output: 07/01/18 07/02/18 18:59 06:59 Intake Total 360 Balance 360 - Medications Medications: Current Medications Acetaminophen (Tylenol 325mg Tab) 650 mg PO Q6 PRN PRN Reason: Fever >100.4 F Last Admin: 06/26/18 18:19 Dose: 650 mg Apixaban (Eliquis) 2.5 mg PO DAILY [facility]S [facility]CLUDE 234 BEDS AT [facility] Budesonide (Pulmicort Respules) 1 mg IH RBID COUNTS INCLUDE 234 BEDS AT THE [facility] Last Admin: 07/01/18 10:00 Dose: 1 mg Calcium Acetate (Phoslo) 1,334 mg PO TID COUNTS INCLUDE 234 BEDS AT THE [facility] Last Admin: 07/01/18 17:10 Dose: 1,334 mg Diltiazem HCl (Cardizem Cd) 240 mg PO DAILY COUNTS INCLUDE 234 BEDS AT THE [facility] Epoetin Eddie (Procrit) 10,000 unit IV MWF [facility]S [facility]CLUDE 234 BEDS AT THE [facility] Last Admin: 07/01/18 09:55 Dose: 10,000 unit Famotidine (Pepcid) 20 mg PO DAILY [facility]S [facility]CLUDE 234 BEDS AT THE [facility] Last Admin: 07/01/18 09:31 Dose: 20 mg Fluticasone/Vilanterol (Breo Ellipta 200-25 Mcg Inh) 1 puff INH RQD COUNTS INCLUDE 234 BEDS AT THE [facility] Last Admin: 07/01/18 10:12 Dose: 1 puff Glipizide (Glucotrol) 10 mg PO ACBD COUNTS INCLUDE 234 BEDS AT THE [facility] Last Admin: 07/01/18 17:10 Dose: 10 mg Guaifenesin/Dextromethorphan (Robitussin Dm) 10 ml PO Q4H PRN PRN Reason: Cough and congestion Last Admin: 07/01/18 16:03 Dose: 10 ml Home Med (Patient's Own Drops) 1 drop OD DAILY [facility]S [facility]CLUDE 234 BEDS AT [facility] Last Admin: 07/01/18 17:49 Dose: 1 drop Azithromycin 500 mg/ Sodium (Chloride) 250 mls @ 250 mls/hr IVPB DAILY@1100 [facility]S [facility]CLUDE 234 BEDS AT THE [facility]; Protocol Last Admin: 07/01/18 13:02 Dose: 250 mls/hr Cefepime HCl 1 gm/ Dextrose 50 mls @ 100 mls/hr IVPB Q24H [facility]S INCLUDE 234 BEDS AT THE [facility]; Protocol Last Admin: 07/01/18 18:30 Dose: 100 mls/hr Insulin Aspart (Novolog) 10 unit SC ONCE [facility] Insulin Aspart (Novolog) 0 unit SC ACHS COUNTS [facility]CLUDE 234 BEDS AT THE [facility]; Protocol Last Admin: 07/01/18 17:11 Dose: 2 units Insulin Detemir (Levemir) 12 unit SC Q12H [facility]S [facility]CLUDE 234 BEDS AT THE [facility] Last Admin: 07/01/18 11:28 Dose: 12 units Levothyroxine Sodium (Synthroid) 150 mcg PO DAILY@0630 COUNTS [facility]CLUDE 234 BEDS AT THE [facility] Last Admin: 07/01/18 06:03 Dose: 150 mcg Methylprednisolone (Solu-Medrol) 40 mg IVP Q12 COUNTS INCLUDE 234 BEDS AT THE [facility] Last Admin: 07/01/18 13:02 Dose: 40 mg Rosuvastatin Calcium (Crestor) 5 mg PO HS COUNTS INCLUDE 234 BEDS AT THE [facility] Last Admin: 06/30/18 23:16 Dose: 5 mg Tiotropium [place] (Spiriva) 18 mcg INH RQ24 COUNTS INCLUDE 234 BEDS AT THE [facility] Last Admin: 07/01/18 10:12 Dose: Not Given - Labs Labs: 07/01/18 06:37 07/01/18 06:37 - Constitutional Appears: Well - Head Exam Head Exam: ATRAUMATIC - Eye Exam Eye Exam: EOMI - ENT Exam ENT Exam: Mucous Membranes Moist - Respiratory Exam Respiratory Exam: Clear to Ausculation Bilateral - Cardiovascular Exam Cardiovascular Exam: REGULAR RHYTHM - GI/Abdominal Exam GI & Abdominal Exam: Normal Bowel Sounds - Extremities Exam Extremities Exam: Full ROM, Normal Inspection - Back Exam Back Exam: NORMAL INSPECTION - Neurological Exam Neurological Exam: Alert, Normal Gait - Skin Skin Exam: Dry, Normal Color Assessment and Plan - Assessment and Plan (Free Text) Assessment: pt is now stable on eliaqis: will resume po cardezem tomorrow. No stable after brief afib.
--- NOTE | 2018-07-01 20:33 | CP.PCM.PN ---
Subjective - Date & Time of Evaluation Date of Evaluation: 07/01/18 Time of Evaluation: 10:30 - Subjective Subjective: pt seen and examined at bedside no acute distress. no acute overnight events for HD today no c/o fever, chest pain, sob, abdominal pain Objective - Vital Signs/Intake and Output Vital Signs (last 24 hours): Temp Pulse Resp BP Pulse Ox 97.9 F 83 16 121/52 L 99 07/01/18 15:44 07/01/18 19:05 07/01/18 19:05 07/01/18 19:05 07/01/18 19:05 Intake and Output: 07/01/18 07/02/18 18:59 06:59 Intake Total 730 170 Output Total 2500 Balance -1770 170 - Medications Medications: Current Medications Acetaminophen (Tylenol 325mg Tab) 650 mg PO Q6 PRN PRN Reason: Fever >100.4 F Last Admin: 06/26/18 18:19 Dose: 650 mg Apixaban (Eliquis) 2.5 mg PO DAILY [facility] Budesonide (Pulmicort Respules) 1 mg IH RBID [facility] Last Admin: 07/01/18 19:47 Dose: 0.25 mg Calcium Acetate (Phoslo) 1,334 mg PO TID [facility] Last Admin: 07/01/18 17:10 Dose: 1,334 mg Diltiazem HCl (Cardizem Cd) 240 mg PO DAILY [facility] Epoetin Eddie (Procrit) 10,000 unit IV MWF [facility] Last Admin: 07/01/18 09:55 Dose: 10,000 unit Famotidine (Pepcid) 20 mg PO DAILY [facility] Last Admin: 07/01/18 09:31 Dose: 20 mg Fluticasone/Vilanterol (Breo Ellipta 200-25 Mcg Inh) 1 puff INH RQD [facility] Last Admin: 07/01/18 10:12 Dose: 1 puff Glipizide (Glucotrol) 10 mg PO ACBD [facility] Last Admin: 07/01/18 17:10 Dose: 10 mg Guaifenesin/Dextromethorphan (Robitussin Dm) 10 ml PO Q4H PRN PRN Reason: Cough and congestion Last Admin: 07/01/18 16:03 Dose: 10 ml Home Med (Patient's Own Drops) 1 drop OD DAILY [facility] Last Admin: 07/01/18 17:49 Dose: 1 drop Azithromycin 500 mg/ Sodium (Chloride) 250 mls @ 250 mls/hr IVPB DAILY@1100 [facility]; Protocol Last Admin: 07/01/18 13:02 Dose: 250 mls/hr Cefepime HCl 1 gm/ Dextrose 50 mls @ 100 mls/hr IVPB Q24H [facility]; Protocol Last Admin: 07/01/18 18:30 Dose: 100 mls/hr Insulin Aspart (Novolog) 10 unit SC ONCE [facility] Insulin Aspart (Novolog) 0 unit SC ACHS [facility]; Protocol Last Admin: 07/01/18 17:11 Dose: 2 units Insulin Detemir (Levemir) 12 unit SC Q12H [facility] Last Admin: 07/01/18 11:28 Dose: 12 units Levothyroxine Sodium (Synthroid) 150 mcg PO DAILY@0630 [facility] Last Admin: 07/01/18 06:03 Dose: 150 mcg Methylprednisolone (Solu-Medrol) 40 mg IVP Q12 [facility] Last Admin: 07/01/18 13:02 Dose: 40 mg Rosuvastatin Calcium (Crestor) 5 mg PO HS [facility] Last Admin: 06/30/18 23:16 Dose: 5 mg Tiotropium [place] (Spiriva) 18 mcg INH RQ24 [facility] Last Admin: 07/01/18 10:12 Dose: Not Given - Labs Labs: 07/01/18 06:37 07/01/18 06:37 - Constitutional Appears: Well - Head Exam Head Exam: ATRAUMATIC, NORMAL INSPECTION, NORMOCEPHALIC - Eye Exam Eye Exam: EOMI, Normal appearance, PERRL Pupil Exam: NORMAL ACCOMODATION, PERRL - ENT Exam ENT Exam: Mucous Membranes Moist, Normal Exam - Neck Exam Neck Exam: Full ROM, Normal Inspection. absent: Lymphadenopathy - Respiratory Exam Respiratory Exam: Decreased Breath Sounds - Cardiovascular Exam Cardiovascular Exam: REGULAR RHYTHM, +S1, +S2 - GI/Abdominal Exam GI & Abdominal Exam: Soft, Diminished Bowel Sounds - Rectal Exam Rectal Exam: Deferred Assessment and Plan (1) CHF exacerbation Status: Acute (2) Dyspnea Status: Acute (3) ESRD (end stage renal disease) on dialysis Status: Acute (4) Uncontrolled diabetes mellitus Status: Acute (5) MARIA EUGENIA (acute kidney injury) Status: Acute (6) Abdominal pain Status: Acute (7) Acute bronchitis Status: Acute (8) Acute kidney injury Status: Acute (9) Acute kidney injury superimposed on chronic kidney disease Status: Acute (10) Acute respiratory failure Status: Acute (11) Anemia Status: Acute (12) Anemia of chronic disease Status: Acute (13) Atrial fibrillation with controlled ventricular response Status: Acute (14) Back pain of thoracolumbar region Status: Acute (15) Bronchitis Status: Acute (16) Bronchitis Status: Acute (17) CHF (congestive heart failure) Status: Acute (18) CHF (congestive heart failure) Status: Acute (19) CKD (chronic kidney disease) stage 3, GFR 30-59 ml/min Status: Acute (20) COPD (chronic obstructive pulmonary disease) Status: Acute (21) COPD exacerbation Status: Acute (22) COPD exacerbation Status: Acute (23) Chest pain Status: Acute (24) ESR raised Status: Acute (25) ESRD (end stage renal disease) Status: Acute (26) Fluid overload Status: Acute (27) Fluid overload, unspecified Status: Acute (28) Gastritis Status: Acute (29) Hepatitis Status: Acute (30) History of asthma Status: Acute (31) History of atrial fibrillation Status: Acute (32) History of back pain Status: Acute (33) History of gastroesophageal reflux (GERD) Status: Acute (34) Hypercalcemia Status: Acute (35) Hyperlipemia Status: Acute (36) Influenza Status: Acute (37) Leucocytosis Status: Acute (38) Lower extremity pain Status: Acute (39) Multiple myeloma Status: Acute (40) Multiple myeloma Status: Acute (41) Myeloma Status: Acute (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 (43) Occult gastrointestinal hemorrhage Status: Acute (44) Paroxysmal A-fib Status: Acute (45) Pneumonia Status: Acute (46) Prophylactic measure Status: Acute (47) Pulmonary hypertension Status: Acute (48) Pulmonary hypertension Status: Acute (49) Renal failure Status: Acute (50) Respiratory tract infection Status: Acute (51) Streptococcus pneumoniae Status: Acute (52) Symptomatic anemia Status: Acute (53) Vertigo Status: Acute (54) Worsening renal function Status: Acute (55) Anemia Status: Chronic (56) Asthma Status: Chronic (57) Atrial fibrillation Status: Chronic (58) Chronic diastolic (congestive) heart failure Status: Chronic (59) Diabetes Status: Chronic (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
[2018-07-02] MEDS: guaiFENesin DM 200 mg-20 mg/10 ml UD PO PRN ×2 (03:39→09:47)
[2018-07-02 06:23] LABS: BASO % 0.2 % (0.0-2.0); HEMOGLOBIN 8.1 g/dL (11.0-16.0); LYMPH # 0.4 K/uL (1.0-4.3); LYMPH % 1.8 % (20.0-40.0); MEAN CORPUSCULAR HEMOGLOBIN 27.2 pg (27.0-31.0); MEAN CORPUSCULAR HGB CONC 31.3 g/dL (33.0-37.0); MEAN PLATELET VOLUME 10.3 fL (7.2-11.7); MONO # 0.5 K/uL (0.0-0.8); MONO % 2.3 % (0.0-10.0); NEUT # 21.4 K/uL (1.8-7.0); NEUT % 95.7 % (50.0-75.0); NRBC % 0.1 % (0.0-2.0); PLATELET COUNT 263 K/uL (130-400); RBC 2.99 Mil/uL (3.80-5.20); RED CELL DISTRIBUTION WIDTH 17.2 % (11.5-14.5); WHITE BLOOD COUNT 22.3 K/uL (4.8-10.8)
[2018-07-02] MEDS: Levothyroxine 150 MCG TAB PO SCH (06:29)
[2018-07-02 06:45] LABS: ALB/GLOB RATIO 0.9 (1.0-2.1); ALBUMIN 2.8 g/dL (3.5-5.0); CALCIUM 8.8 mg/dl (8.6-10.4)
[2018-07-02] MEDS: (Novolog) Insulin Aspart, Recombinant 100 u/ml 10 ml vial SC SCH ×4 (07:30→21:10)
[2018-07-02] MEDS: Fluticasone-Vilanterol 200/25mcg Diskus INH SCH (07:49)
[2018-07-02] MEDS: Budesonide 0.25 mg/2 ml Inhal Susp UD IH SCH ×2 (07:49→19:17)
[2018-07-02] MEDS: Tiotropium 18 mcg Cap For Inhalation INH SCH (07:50)
[2018-07-02 08:34] LABS: BANDS 1 % (0-2); LYMPHOCYTE 1 % (20-40); MONOCYTE 2 % (0-10); NEUTROPHIL 96 % (50-75); PLATELET ESTIMATE NORMAL (NORMAL); TOTAL CELLS COUNTED 100
[2018-07-02 08:37] LABS: ANISOCYTOSIS SLIGHT; HYPOCHROMIC SLIGHT
--- NOTE | 2018-07-02 09:16 | CP.PCM.PN ---
Subjective - Date & Time of Evaluation Date of Evaluation: 07/02/18 Time of Evaluation: 09:15 - Subjective Subjective: afebrile cbc chems noted up in chair nervous nausea vomiting last PM none this AM ROS no fever no izziness no chest pain sob no abd pain,diarrhea anuric Objective - Vital Signs/Intake and Output Vital Signs (last 24 hours): Temp Pulse Resp BP Pulse Ox 97.5 F L 71 24 129/59 L 97 07/02/18 08:00 07/02/18 08:00 07/02/18 08:00 07/02/18 08:00 07/02/18 08:00 Intake and Output: 07/02/18 07/02/18 06:59 18:59 Intake Total 420 10 Output Total 1 Balance 419 10 - Medications Medications: Current Medications Acetaminophen (Tylenol 325mg Tab) 650 mg PO Q6 PRN PRN Reason: Fever >100.4 F Last Admin: 06/26/18 18:19 Dose: 650 mg Apixaban (Eliquis) 2.5 mg PO DAILY [facility] Budesonide (Pulmicort Respules) 1 mg IH RBID [facility] Last Admin: 07/02/18 07:49 Dose: 1 mg Calcium Acetate (Phoslo) 1,334 mg PO TID [facility] Last Admin: 07/01/18 17:10 Dose: 1,334 mg Diltiazem HCl (Cardizem Cd) 240 mg PO DAILY [facility] Epoetin Eddie (Procrit) 10,000 unit IV MWF [facility] Last Admin: 07/01/18 09:55 Dose: 10,000 unit Famotidine (Pepcid) 20 mg PO DAILY [facility] Last Admin: 07/01/18 09:31 Dose: 20 mg Fluticasone/Vilanterol (Breo Ellipta 200-25 Mcg Inh) 1 puff INH RQD [facility] Last Admin: 07/02/18 07:49 Dose: 1 puff Glipizide (Glucotrol) 10 mg PO ACBD [facility] Last Admin: 07/02/18 08:09 Dose: 10 mg Guaifenesin/Dextromethorphan (Robitussin Dm) 10 ml PO Q4H PRN PRN Reason: Cough and congestion Last Admin: 07/02/18 03:39 Dose: 10 ml Home Med (Patient's Own Drops) 1 drop OD DAILY [facility] Last Admin: 07/01/18 17:49 Dose: 1 drop Azithromycin 500 mg/ Sodium (Chloride) 250 mls @ 250 mls/hr IVPB DAILY@1100 [facility]; Protocol Last Admin: 07/01/18 13:02 Dose: 250 mls/hr Cefepime HCl 1 gm/ Dextrose 50 mls @ 100 mls/hr IVPB Q24H [facility]; Protocol Last Admin: 07/01/18 18:30 Dose: 100 mls/hr Insulin Aspart (Novolog) 10 unit SC ONCE [facility] Insulin Aspart (Novolog) 0 unit SC ACHS [facility]; Protocol Last Admin: 07/01/18 22:24 Dose: Not Given Insulin Detemir (Levemir) 12 unit SC Q12H [facility] Last Admin: 07/01/18 22:25 Dose: 12 units Levothyroxine Sodium (Synthroid) 150 mcg PO DAILY@0630 [facility] Last Admin: 07/02/18 06:29 Dose: 150 mcg Methylprednisolone (Solu-Medrol) 40 mg IVP Q12 [facility] Last Admin: 07/01/18 22:24 Dose: 40 mg Rosuvastatin Calcium (Crestor) 5 mg PO HS [facility] Last Admin: 07/01/18 22:24 Dose: 5 mg Tiotropium [place] (Spiriva) 18 mcg INH RQ24 [facility] Last Admin: 07/02/18 07:50 Dose: 18 mcg - Labs Labs: 07/02/18 06:15 07/02/18 06:15 - Constitutional Appears: No Acute Distress - ENT Exam ENT Exam: Mucous Membranes Moist - Respiratory Exam Respiratory Exam: Clear to Ausculation Bilateral, NORMAL BREATHING PATTERN - Cardiovascular Exam Cardiovascular Exam: REGULAR RHYTHM - GI/Abdominal Exam GI & Abdominal Exam: Soft. absent: Distended, Tenderness - Extremities Exam Extremities Exam: absent: Calf Tenderness - Back Exam Back Exam: absent: CVA tenderness (L), CVA tenderness (R) - Psychiatric Exam Psychiatric exam: Anxious - Skin Skin Exam: Dry, Warm Assessment and Plan (1) ESRD (end stage renal disease) on dialysis Status: Acute (2) Paroxysmal atrial fibrillation Status: Acute (3) COPD (chronic obstructive pulmonary disease) Status: Acute - Assessment and Plan (Free Text) Plan: follow pulm and cardiology recommendations schedule dialysis for 07/03 orders written contniue to ultrafiltrate
[2018-07-02] MEDS: diltiaZEM 240 mg/24 Hours CD Cap PO SCH (09:47)
[2018-07-02] MEDS: MethylPREDNISolone 40 mg Vial IVP SCH ×2 (09:48→21:09)
[2018-07-02] MEDS: BROMFENAC 0.07% OD SCH (09:51)
[2018-07-02] MEDS: Azithromycin 500 MG in Sodium Chloride 0.9% 250 ML IVPB SCH (12:37)
[2018-07-02] MEDS: Insulin Detemir 100 units/ml Vial (Levemir) SC SCH ×2 (12:38→23:00)
[2018-07-02] MEDS ORDERED: Acetaminophen-Codeine 300/30 mg Tab PO PRN (15:40)
[2018-07-02] MEDS: Promethazine/Cod 6.25mg-10mg/5ml Syr UD PO PRN (16:40)
--- NOTE | 2018-07-02 16:58 | CT ---
Date of service: 07/02/2018 PROCEDURE: CT Chest without contrast HISTORY: Rule out pneumonia. COMPARISON: None available. TECHNIQUE: Contiguous axial images were obtained through the chest without intravenous contrast enhancement. Sagittal and coronal reconstructions were performed. Radiation dose: Total exam DLP = 513.37 mGy-cm. This CT exam was performed using one or more of the following dose reduction techniques: Automated exposure control, adjustment of the mA and/or kV according to patient size, and/or use of iterative reconstruction technique. FINDINGS: LUNGS: There at least 2 areas of mild scarring changes seen and the anterior anteromedial aspect right upper lobe extending to the pleural surfaces. Similar foci also seen in the anteromedial aspect of the medial segment right middle lobe and lingular regions there may also be some subsegmental atelectasis and/or pleural thickening in the left posterior sulcus.. Minor ground-glass opacities are seen scattered throughout the lower lobes MEDIASTINUM: Heart size is within range of normal. No significant pericardial effusion. Dense mitral valve calcification. Ascending thoracic aorta measures approximately 3.4 cm. Descending thoracic aorta measures approximately 2.4 cm. Mild aortic atherosclerotic calcification. Pulmonary trunk measures approximately 2.8 cm. Trachea is midline and patent with no large central endoluminal lesions. PLEURA: No pleural fluid. No pneumothorax.. BONES: Chronic anterior wedge compression deformities T11, T12 and probably the L1 segments.. There are also multiple nonspecific lucent changes scattered throughout multiple thoracic vertebral bodies segments. Probable hemangioma within the T1 segment. UPPER ABDOMEN: There are enlarged hypoplastic appearing adrenal glands. Cholelithiasis with calculi seen in the region of the gallbladder neck. Gallstones in the cystic duct not completely excluded.. Please refer to prior gallbladder ultrasound 06/12/2018 for additional details. OTHER FINDINGS: None. IMPRESSION: There at least 2 areas of mild scarring changes seen and the the anterior anteromedial aspect right upper lobe extending to the pleural surfaces. Similar foci also seen in the anteromedial aspect of the medial segment right middle lobe and lingular regions there may also be some subsegmental atelectasis and/or pleural thickening in the left posterior sulcus.. Minor ground-glass opacity seen scattered throughout the lower lobes Enlarged hyperplastic adrenal glands. Cholelithiasis. Chronic anterior wedge compression deformities T11-T12 and probably L1 segments
--- NOTE | 2018-07-02 18:01 | CP.PCM.PN ---
Subjective - Date & Time of Evaluation Date of Evaluation: 07/02/18 Time of Evaluation: 18:01 Objective - Vital Signs/Intake and Output Vital Signs (last 24 hours): Temp Pulse Resp BP Pulse Ox 98.3 F 81 17 130/60 98 07/02/18 16:00 07/02/18 16:00 07/02/18 16:00 07/02/18 16:00 07/02/18 16:00 Intake and Output: 07/02/18 07/02/18 06:59 18:59 Intake Total 420 740 Output Total 1 Balance 419 740 - Medications Medications: Current Medications Acetaminophen (Tylenol 325mg Tab) 650 mg PO Q6 PRN PRN Reason: Fever >100.4 F Last Admin: 06/26/18 18:19 Dose: 650 mg Apixaban (Eliquis) 2.5 mg PO DAILY [facility] Last Admin: 07/02/18 09:47 Dose: 2.5 mg Budesonide (Pulmicort Respules) 1 mg IH RBID [facility] Last Admin: 07/02/18 07:49 Dose: 1 mg Calcium Acetate (Phoslo) 1,334 mg PO TID [facility] Last Admin: 07/02/18 13:29 Dose: 1,334 mg Diltiazem HCl (Cardizem Cd) 240 mg PO DAILY [facility] Last Admin: 07/02/18 09:47 Dose: 240 mg Epoetin Eddie (Procrit) 10,000 unit IV MWF [facility] Last Admin: 07/01/18 09:55 Dose: 10,000 unit Famotidine (Pepcid) 20 mg PO DAILY [facility] Last Admin: 07/02/18 09:47 Dose: 20 mg Fluticasone/Vilanterol (Breo Ellipta 200-25 Mcg Inh) 1 puff INH RQD [facility] Last Admin: 07/02/18 07:49 Dose: 1 puff Glipizide (Glucotrol) 10 mg PO ACBD [facility] Last Admin: 07/02/18 16:40 Dose: 10 mg Guaifenesin/Dextromethorphan (Robitussin Dm) 10 ml PO Q4H PRN PRN Reason: Cough and congestion Last Admin: 07/02/18 09:47 Dose: 10 ml Home Med (Patient's Own Drops) 1 drop OD DAILY [facility] Last Admin: 07/02/18 09:51 Dose: 1 drop Cefepime HCl 1 gm/ Dextrose 50 mls @ 100 mls/hr IVPB Q24H [facility]; Protocol Last Admin: 07/01/18 18:30 Dose: 100 mls/hr Insulin Aspart (Novolog) 10 unit SC ONCE [facility] Insulin Aspart (Novolog) 0 unit SC ACHS [facility]; Protocol Last Admin: 07/02/18 16:40 Dose: 4 units Insulin Detemir (Levemir) 12 unit SC Q12H [facility] Last Admin: 07/02/18 12:38 Dose: 12 units Levothyroxine Sodium (Synthroid) 150 mcg PO DAILY@0630 [facility] Last Admin: 07/02/18 06:29 Dose: 150 mcg Methylprednisolone (Solu-Medrol) 40 mg IVP Q12 [facility] Last Admin: 07/02/18 09:48 Dose: 40 mg Promethazine HCl/Codeine (Phenergan/Codeine Oral Syrup) 10 ml PO Q8H PRN PRN Reason: Cough Last Admin: 07/02/18 16:40 Dose: 10 ml Rosuvastatin Calcium (Crestor) 5 mg PO HS [facility] Last Admin: 07/01/18 22:24 Dose: 5 mg Tiotropium [place] (Spiriva) 18 mcg INH RQ24 [facility] Last Admin: 07/02/18 07:50 Dose: 18 mcg - Labs Labs: 07/02/18 06:15 07/02/18 06:15 Assessment and Plan (1) CHF exacerbation Status: Acute (2) Dyspnea Status: Acute (3) Atrial fibrillation with RVR Status: Resolved (4) COPD (chronic obstructive pulmonary disease) Status: Acute (5) ESRD (end stage renal disease) Status: Acute
--- NOTE | 2018-07-02 18:13 | CP.PCM.PN ---
Subjective - Date & Time of Evaluation Date of Evaluation: 07/02/18 Time of Evaluation: 10:15 - Subjective Subjective: pt seen and examined at bedside nausea vomiting last night . no current symptoms of n/v now remains sob - pulm following HD sessions in progress per nephro no chest pain, fever, abdominal pain Objective - Vital Signs/Intake and Output Vital Signs (last 24 hours): Temp Pulse Resp BP Pulse Ox 98.3 F 81 17 130/60 98 07/02/18 16:00 07/02/18 16:00 07/02/18 16:00 07/02/18 16:00 07/02/18 16:00 Intake and Output: 07/02/18 07/02/18 06:59 18:59 Intake Total 420 860 Output Total 1 Balance 419 860 - Medications Medications: Current Medications Acetaminophen (Tylenol 325mg Tab) 650 mg PO Q6 PRN PRN Reason: Fever >100.4 F Last Admin: 06/26/18 18:19 Dose: 650 mg Apixaban (Eliquis) 2.5 mg PO DAILY [facility] Last Admin: 07/02/18 09:47 Dose: 2.5 mg Budesonide (Pulmicort Respules) 1 mg IH RBID [facility] Last Admin: 07/02/18 07:49 Dose: 1 mg Calcium Acetate (Phoslo) 1,334 mg PO TID [facility] Last Admin: 07/02/18 13:29 Dose: 1,334 mg Diltiazem HCl (Cardizem Cd) 240 mg PO DAILY [facility] Last Admin: 07/02/18 09:47 Dose: 240 mg Epoetin Eddie (Procrit) 10,000 unit IV MWF [facility] Last Admin: 07/01/18 09:55 Dose: 10,000 unit Famotidine (Pepcid) 20 mg PO DAILY [facility] Last Admin: 07/02/18 09:47 Dose: 20 mg Fluticasone/Vilanterol (Breo Ellipta 200-25 Mcg Inh) 1 puff INH RQD [facility] Last Admin: 07/02/18 07:49 Dose: 1 puff Glipizide (Glucotrol) 10 mg PO ACBD [facility] Last Admin: 07/02/18 16:40 Dose: 10 mg Guaifenesin/Dextromethorphan (Robitussin Dm) 10 ml PO Q4H PRN PRN Reason: Cough and congestion Last Admin: 07/02/18 09:47 Dose: 10 ml Home Med (Patient's Own Drops) 1 drop OD DAILY [facility] Last Admin: 07/02/18 09:51 Dose: 1 drop Cefepime HCl 1 gm/ Dextrose 50 mls @ 100 mls/hr IVPB Q24H [facility]; Protocol Last Admin: 07/01/18 18:30 Dose: 100 mls/hr Insulin Aspart (Novolog) 10 unit SC ONCE [facility] Insulin Aspart (Novolog) 0 unit SC ACHS [facility]; Protocol Last Admin: 07/02/18 16:40 Dose: 4 units Insulin Detemir (Levemir) 12 unit SC Q12H [facility] Last Admin: 07/02/18 12:38 Dose: 12 units Levothyroxine Sodium (Synthroid) 150 mcg PO DAILY@0630 [facility] Last Admin: 07/02/18 06:29 Dose: 150 mcg Methylprednisolone (Solu-Medrol) 40 mg IVP Q12 [facility] Last Admin: 07/02/18 09:48 Dose: 40 mg Promethazine HCl/Codeine (Phenergan/Codeine Oral Syrup) 10 ml PO Q8H PRN PRN Reason: Cough Last Admin: 07/02/18 16:40 Dose: 10 ml Rosuvastatin Calcium (Crestor) 5 mg PO HS [facility] Last Admin: 07/01/18 22:24 Dose: 5 mg Tiotropium [place] (Spiriva) 18 mcg INH RQ24 [facility] Last Admin: 07/02/18 07:50 Dose: 18 mcg - Labs Labs: 07/02/18 06:15 07/02/18 06:15 - Constitutional Appears: Well - Head Exam Head Exam: ATRAUMATIC, NORMAL INSPECTION, NORMOCEPHALIC - Eye Exam Eye Exam: EOMI, Normal appearance, PERRL Pupil Exam: NORMAL ACCOMODATION, PERRL - ENT Exam ENT Exam: Mucous Membranes Moist, Normal Exam - Neck Exam Neck Exam: Full ROM, Normal Inspection. absent: Lymphadenopathy - Respiratory Exam Respiratory Exam: Decreased Breath Sounds - Cardiovascular Exam Cardiovascular Exam: REGULAR RHYTHM, +S1, +S2 - GI/Abdominal Exam GI & Abdominal Exam: Soft, Diminished Bowel Sounds - Rectal Exam Rectal Exam: Deferred Assessment and Plan (1) CHF exacerbation Status: Acute (2) Dyspnea Status: Acute (3) ESRD (end stage renal disease) on dialysis Status: Acute (4) Uncontrolled diabetes mellitus Status: Acute (5) MARIA EUGENIA (acute kidney injury) Status: Acute (6) Abdominal pain Status: Acute (7) Acute bronchitis Status: Acute (8) Acute kidney injury Status: Acute (9) Acute kidney injury superimposed on chronic kidney disease Status: Acute (10) Acute respiratory failure Status: Acute (11) Anemia Status: Acute (12) Anemia of chronic disease Status: Acute (13) Atrial fibrillation with controlled ventricular response Status: Acute (14) Back pain of thoracolumbar region Status: Acute (15) Bronchitis Status: Acute (16) Bronchitis Status: Acute (17) CHF (congestive heart failure) Status: Acute (18) CHF (congestive heart failure) Status: Acute (19) CKD (chronic kidney disease) stage 3, GFR 30-59 ml/min Status: Acute (20) COPD (chronic obstructive pulmonary disease) Status: Acute (21) COPD exacerbation Status: Acute (22) COPD exacerbation Status: Acute (23) Chest pain Status: Acute (24) ESR raised Status: Acute (25) ESRD (end stage renal disease) Status: Acute (26) Fluid overload Status: Acute (27) Fluid overload, unspecified Status: Acute (28) Gastritis Status: Acute (29) Hepatitis Status: Acute (30) History of asthma Status: Acute (31) History of atrial fibrillation Status: Acute (32) History of back pain Status: Acute (33) History of gastroesophageal reflux (GERD) Status: Acute (34) Hypercalcemia Status: Acute (35) Hyperlipemia Status: Acute (36) Influenza Status: Acute (37) Leucocytosis Status: Acute (38) Lower extremity pain Status: Acute (39) Multiple myeloma Status: Acute (40) Multiple myeloma Status: Acute (41) Myeloma Status: Acute (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 (43) Occult gastrointestinal hemorrhage Status: Acute (44) Paroxysmal A-fib Status: Acute (45) Pneumonia Status: Acute (46) Prophylactic measure Status: Acute (47) Pulmonary hypertension Status: Acute (48) Pulmonary hypertension Status: Acute (49) Renal failure Status: Acute (50) Respiratory tract infection Status: Acute (51) Streptococcus pneumoniae Status: Acute (52) Symptomatic anemia Status: Acute (53) Vertigo Status: Acute (54) Worsening renal function Status: Acute (55) Anemia Status: Chronic (56) Asthma Status: Chronic (57) Atrial fibrillation Status: Chronic (58) Chronic diastolic (congestive) heart failure Status: Chronic (59) Diabetes Status: Chronic (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 - Assessment and Plan (Free Text) Plan: meds and labs reviewed vitals reviewed riana meds as ordered steroid duonebs pulmicort procrit HD per renal renal diet PO cardizem eliquis levemir other meds as ordered riana same pt/ot resp support pulm id nephro
[2018-07-03] MEDS: Promethazine/Cod 6.25mg-10mg/5ml Syr UD PO PRN (04:28)
[2018-07-03 06:52] LABS: BASO % 0.1 % (0.0-2.0); HEMOGLOBIN 7.7 g/dL (11.0-16.0); LYMPH # 0.5 K/uL (1.0-4.3); MEAN CELL VOLUME 87.9 fL (81.0-99.0); MEAN CORPUSCULAR HEMOGLOBIN 27.3 pg (27.0-31.0); MEAN PLATELET VOLUME 10.4 fL (7.2-11.7); MONO # 0.5 K/uL (0.0-0.8); MONO % 1.9 % (0.0-10.0); NEUT # 24.6 K/uL (1.8-7.0); PLATELET COUNT 233 K/uL (130-400); RBC 2.84 Mil/uL (3.80-5.20); RED CELL DISTRIBUTION WIDTH 17.2 % (11.5-14.5); WHITE BLOOD COUNT 25.7 K/uL (4.8-10.8)
[2018-07-03] MEDS: Levothyroxine 150 MCG TAB PO SCH (07:10)
[2018-07-03 07:39] LABS: ALB/GLOB RATIO 0.9 (1.0-2.1); ALBUMIN 2.9 g/dL (3.5-5.0)
[2018-07-03] MEDS: Fluticasone-Vilanterol 200/25mcg Diskus INH SCH (08:32)
[2018-07-03] MEDS: Tiotropium 18 mcg Cap For Inhalation INH SCH (08:32)
[2018-07-03] MEDS: Budesonide 0.25 mg/2 ml Inhal Susp UD IH SCH ×2 (08:33→19:28)
[2018-07-03 08:41] LABS: ANISOCYTOSIS SLIGHT; HYPOCHROMIC SLIGHT; LYMPHOCYTE 1 % (20-40); MONOCYTE 1 % (0-10); NEUTROPHIL 98 % (50-75); PLATELET ESTIMATE NORMAL (NORMAL); POIKILOCYTOSIS SLIGHT; TOTAL CELLS COUNTED 100
[2018-07-03 08:42] LABS: TARGET CELLS SLIGHT
[2018-07-03] MEDS: (Novolog) Insulin Aspart, Recombinant 100 u/ml 10 ml vial SC SCH ×4 (08:59→21:12)
[2018-07-03] MEDS: Epoetin Alfa 10,000 unit/ml Dialysis IV SCH (10:11)
[2018-07-03] MEDS: Insulin Detemir 100 units/ml Vial (Levemir) SC SCH ×2 (11:58→22:41)
[2018-07-03] MEDS: MethylPREDNISolone 40 mg Vial IVP SCH ×2 (11:58→21:32)
[2018-07-03] MEDS: BROMFENAC 0.07% OD SCH (11:59)
--- NOTE | 2018-07-03 12:37 | CP.PCM.PN ---
Subjective - Date & Time of Evaluation Date of Evaluation: 07/03/18 Time of Evaluation: 12:34 - Subjective Subjective: post dialysis now- UF 3000ml tolerated BP stable Still SOB but better Hg decreased again - might need repeat transfusion HR-NSR Difficulty in ambulation Objective - Vital Signs/Intake and Output Vital Signs (last 24 hours): Temp Pulse Resp BP Pulse Ox 98 F 93 H 19 128/59 L 99 07/03/18 09:05 07/03/18 09:05 07/03/18 09:05 07/03/18 12:06 07/03/18 09:05 Intake and Output: 07/03/18 07/03/18 06:59 18:59 Intake Total 50 Balance 50 - Medications Medications: Current Medications Acetaminophen (Tylenol 325mg Tab) 650 mg PO Q6 PRN PRN Reason: Fever >100.4 F Last Admin: 06/26/18 18:19 Dose: 650 mg Apixaban (Eliquis) 2.5 mg PO DAILY [facility] Last Admin: 07/03/18 11:59 Dose: 2.5 mg Budesonide (Pulmicort Respules) 1 mg IH RBID [facility] Last Admin: 07/03/18 08:33 Dose: 1 mg Calcium Acetate (Phoslo) 1,334 mg PO TID [facility] Last Admin: 07/03/18 11:59 Dose: 1,334 mg Diltiazem HCl (Cardizem Cd) 240 mg PO DAILY [facility] Last Admin: 07/02/18 09:47 Dose: 240 mg Epoetin Eddie (Procrit) 10,000 unit IV MWF [facility] Last Admin: 07/03/18 10:11 Dose: 10,000 unit Famotidine (Pepcid) 20 mg PO DAILY [facility] Last Admin: 07/03/18 12:00 Dose: 20 mg Fluticasone/Vilanterol (Breo Ellipta 200-25 Mcg Inh) 1 puff INH RQD [facility] Last Admin: 07/03/18 08:32 Dose: 1 puff Glipizide (Glucotrol) 10 mg PO ACBD [facility] Last Admin: 07/03/18 08:58 Dose: 10 mg Guaifenesin/Dextromethorphan (Robitussin Dm) 10 ml PO Q4H PRN PRN Reason: Cough and congestion Last Admin: 07/02/18 09:47 Dose: 10 ml Home Med (Patient's Own Drops) 1 drop OD DAILY [facility] Last Admin: 07/03/18 11:59 Dose: 1 drop Cefepime HCl 1 gm/ Dextrose 50 mls @ 100 mls/hr IVPB Q24H [facility]; Protocol Last Admin: 07/02/18 18:15 Dose: 100 mls/hr Insulin Aspart (Novolog) 10 unit SC ONCE [facility] Insulin Aspart (Novolog) 0 unit SC ACHS [facility]; Protocol Last Admin: 07/03/18 12:27 Dose: 2 units Insulin Detemir (Levemir) 12 unit SC Q12H [facility] Last Admin: 07/03/18 11:58 Dose: 12 units Levothyroxine Sodium (Synthroid) 150 mcg PO DAILY@0630 [facility] Last Admin: 07/03/18 07:10 Dose: 150 mcg Methylprednisolone (Solu-Medrol) 40 mg IVP Q12 [facility] Last Admin: 07/03/18 11:58 Dose: 40 mg Promethazine HCl/Codeine (Phenergan/Codeine Oral Syrup) 10 ml PO Q8H PRN PRN Reason: Cough Last Admin: 07/03/18 04:28 Dose: 10 ml Rosuvastatin Calcium (Crestor) 5 mg PO HS [facility] Last Admin: 07/02/18 21:10 Dose: 5 mg Tiotropium [place] (Spiriva) 18 mcg INH RQ24 [facility] Last Admin: 07/03/18 08:32 Dose: 18 mcg - Labs Labs: 07/03/18 06:50 07/03/18 06:50 - Constitutional Appears: No Acute Distress, Chronically Ill - Head Exam Head Exam: ATRAUMATIC, NORMAL INSPECTION - Eye Exam Eye Exam: EOMI, Normal appearance - Neck Exam Neck Exam: Normal Inspection. absent: Tenderness - Respiratory Exam Respiratory Exam: Clear to Ausculation Bilateral, NORMAL BREATHING PATTERN - Cardiovascular Exam Cardiovascular Exam: REGULAR RHYTHM, +S1 - GI/Abdominal Exam GI & Abdominal Exam: Soft. absent: Tenderness - Extremities Exam Extremities Exam: Normal Inspection. absent: Tenderness - Neurological Exam Neurological Exam: Awake, CN II-XII Intact - Skin Skin Exam: Dry, Warm Assessment and Plan (1) Atrial fibrillation with RVR Status: Resolved (2) CHF exacerbation Status: Acute (3) COPD exacerbation Status: Acute (4) Multiple myeloma Status: Acute - Assessment and Plan (Free Text) Plan: recommend increase rehab attempts might need repeat blood transfusion same cardiac meds- monitor HR
[2018-07-03] MEDS: diltiaZEM 240 mg/24 Hours CD Cap PO SCH (13:22)
--- NOTE | 2018-07-03 14:01 | CP.PCM.PN ---
Subjective - Date & Time of Evaluation Date of Evaluation: 07/03/18 Time of Evaluation: 14:01 Objective - Vital Signs/Intake and Output Vital Signs (last 24 hours): Temp Pulse Resp BP Pulse Ox 98.5 F 92 H 20 124/61 96 07/03/18 12:35 07/03/18 12:35 07/03/18 12:35 07/03/18 12:35 07/03/18 12:35 Intake and Output: 07/03/18 07/03/18 06:59 18:59 Intake Total 50 Balance 50 - Medications Medications: Current Medications Acetaminophen (Tylenol 325mg Tab) 650 mg PO Q6 PRN PRN Reason: Fever >100.4 F Last Admin: 06/26/18 18:19 Dose: 650 mg Apixaban (Eliquis) 2.5 mg PO DAILY [facility] Last Admin: 07/03/18 11:59 Dose: 2.5 mg Budesonide (Pulmicort Respules) 1 mg IH RBID [facility] Last Admin: 07/03/18 08:33 Dose: 1 mg Calcium Acetate (Phoslo) 1,334 mg PO TID [facility] Last Admin: 07/03/18 13:22 Dose: 1,334 mg Diltiazem HCl (Cardizem Cd) 240 mg PO DAILY [facility] Last Admin: 07/03/18 13:22 Dose: 240 mg Epoetin Eddie (Procrit) 10,000 unit IV MWF [facility] Last Admin: 07/03/18 10:11 Dose: 10,000 unit Famotidine (Pepcid) 20 mg PO DAILY [facility] Last Admin: 07/03/18 12:00 Dose: 20 mg Fluticasone/Vilanterol (Breo Ellipta 200-25 Mcg Inh) 1 puff INH RQD [facility] Last Admin: 07/03/18 08:32 Dose: 1 puff Glipizide (Glucotrol) 10 mg PO ACBD [facility] Last Admin: 07/03/18 08:58 Dose: 10 mg Guaifenesin/Dextromethorphan (Robitussin Dm) 10 ml PO Q4H PRN PRN Reason: Cough and congestion Last Admin: 07/02/18 09:47 Dose: 10 ml Home Med (Patient's Own Drops) 1 drop OD DAILY [facility] Last Admin: 07/03/18 11:59 Dose: 1 drop Cefepime HCl 1 gm/ Dextrose 50 mls @ 100 mls/hr IVPB Q24H [facility]; Protocol Last Admin: 07/02/18 18:15 Dose: 100 mls/hr Insulin Aspart (Novolog) 10 unit SC ONCE [facility] Insulin Aspart (Novolog) 0 unit SC ACHS [facility]; Protocol Last Admin: 07/03/18 12:27 Dose: 2 units Insulin Detemir (Levemir) 12 unit SC Q12H [facility] Last Admin: 07/03/18 11:58 Dose: 12 units Levothyroxine Sodium (Synthroid) 150 mcg PO DAILY@0630 [facility] Last Admin: 07/03/18 07:10 Dose: 150 mcg Methylprednisolone (Solu-Medrol) 40 mg IVP Q12 [facility] Last Admin: 07/03/18 11:58 Dose: 40 mg Promethazine HCl/Codeine (Phenergan/Codeine Oral Syrup) 10 ml PO Q8H PRN PRN Reason: Cough Last Admin: 07/03/18 04:28 Dose: 10 ml Rosuvastatin Calcium (Crestor) 5 mg PO HS [facility] Last Admin: 07/02/18 21:10 Dose: 5 mg Tiotropium [place] (Spiriva) 18 mcg INH RQ24 [facility] Last Admin: 07/03/18 08:32 Dose: 18 mcg - Labs Labs: 07/03/18 06:50 07/03/18 06:50 Assessment and Plan (1) CHF exacerbation Status: Acute (2) Dyspnea Status: Acute (3) Atrial fibrillation with RVR Status: Resolved (4) COPD (chronic obstructive pulmonary disease) Status: Acute (5) ESRD (end stage renal disease) Status: Acute
--- NOTE | 2018-07-03 18:35 | CP.PCM.PN ---
Subjective - Date & Time of Evaluation Date of Evaluation: 07/03/18 Time of Evaluation: 09:00 - Subjective Subjective: 83 year old female with a history of COPD, CHF, DM, afib, hypothyroid, multiple myeloma admitted for worsening respiratory status with exac CHF/COPD as well as uncontrolled blood sugar all cultures neg thus far - improving with HD, steroids Objective - Vital Signs/Intake and Output Vital Signs (last 24 hours): Temp Pulse Resp BP Pulse Ox 98.5 F 92 H 20 124/61 96 07/03/18 12:35 07/03/18 12:35 07/03/18 12:35 07/03/18 12:35 07/03/18 12:35 Intake and Output: 07/03/18 07/03/18 06:59 18:59 Intake Total 50 220 Output Total 0 Balance 50 220 - Medications Medications: Current Medications Acetaminophen (Tylenol 325mg Tab) 650 mg PO Q6 PRN PRN Reason: Fever >100.4 F Last Admin: 06/26/18 18:19 Dose: 650 mg Apixaban (Eliquis) 2.5 mg PO DAILY [facility] Last Admin: 07/03/18 11:59 Dose: 2.5 mg Budesonide (Pulmicort Respules) 1 mg IH RBID [facility] Last Admin: 07/03/18 08:33 Dose: 1 mg Calcium Acetate (Phoslo) 1,334 mg PO TID [facility] Last Admin: 07/03/18 13:22 Dose: 1,334 mg Diltiazem HCl (Cardizem Cd) 240 mg PO DAILY [facility] Last Admin: 07/03/18 13:22 Dose: 240 mg Epoetin Eddie (Procrit) 10,000 unit IV MWF [facility] Last Admin: 07/03/18 10:11 Dose: 10,000 unit Famotidine (Pepcid) 20 mg PO DAILY [facility] Last Admin: 07/03/18 12:00 Dose: 20 mg Fluticasone/Vilanterol (Breo Ellipta 200-25 Mcg Inh) 1 puff INH RQD [facility] Last Admin: 07/03/18 08:32 Dose: 1 puff Glipizide (Glucotrol) 10 mg PO ACBD [facility] Last Admin: 07/03/18 16:51 Dose: 10 mg Guaifenesin/Dextromethorphan (Robitussin Dm) 10 ml PO Q4H PRN PRN Reason: Cough and congestion Last Admin: 07/02/18 09:47 Dose: 10 ml Home Med (Patient's Own Drops) 1 drop OD DAILY [facility] Last Admin: 07/03/18 11:59 Dose: 1 drop Cefepime HCl 1 gm/ Dextrose 50 mls @ 100 mls/hr IVPB Q24H [facility]; Protocol Last Admin: 07/03/18 18:14 Dose: 100 mls/hr Insulin Aspart (Novolog) 10 unit SC ONCE [facility] Insulin Aspart (Novolog) 0 unit SC ACHS [facility]; Protocol Last Admin: 07/03/18 16:31 Dose: 6 units Insulin Detemir (Levemir) 12 unit SC Q12H [facility] Last Admin: 07/03/18 11:58 Dose: 12 units Levothyroxine Sodium (Synthroid) 150 mcg PO DAILY@0630 [facility] Last Admin: 07/03/18 07:10 Dose: 150 mcg Methylprednisolone (Solu-Medrol) 40 mg IVP Q12 [facility] Last Admin: 07/03/18 11:58 Dose: 40 mg Promethazine HCl/Codeine (Phenergan/Codeine Oral Syrup) 10 ml PO Q8H PRN PRN Reason: Cough Last Admin: 07/03/18 04:28 Dose: 10 ml Rosuvastatin Calcium (Crestor) 5 mg PO HS [facility] Last Admin: 07/02/18 21:10 Dose: 5 mg Tiotropium [place] (Spiriva) 18 mcg INH RQ24 [facility] Last Admin: 07/03/18 08:32 Dose: 18 mcg - Labs Labs: 07/03/18 06:50 07/03/18 06:50 - Constitutional Appears: Well - Head Exam Head Exam: ATRAUMATIC, NORMAL INSPECTION, NORMOCEPHALIC - Eye Exam Eye Exam: EOMI, Normal appearance, PERRL Pupil Exam: NORMAL ACCOMODATION, PERRL - ENT Exam ENT Exam: Mucous Membranes Moist, Normal Exam - Neck Exam Neck Exam: Full ROM, Normal Inspection. absent: Lymphadenopathy - Respiratory Exam Respiratory Exam: Clear to Ausculation Bilateral, NORMAL BREATHING PATTERN - Cardiovascular Exam Cardiovascular Exam: REGULAR RHYTHM, +S1, +S2. absent: Murmur - GI/Abdominal Exam GI & Abdominal Exam: Soft, Normal Bowel Sounds. absent: Tenderness - Rectal Exam Rectal Exam: Deferred - Exam Exam: NORMAL INSPECTION - Extremities Exam Extremities Exam: Full ROM, Normal Capillary Refill, Normal Inspection. absent: Joint Swelling, Pedal Edema - Back Exam Back Exam: NORMAL INSPECTION - Neurological Exam Neurological Exam: Alert, Awake, CN II-XII Intact, Normal Gait, Oriented x3 - Psychiatric Exam Psychiatric exam: Normal Affect, Normal Mood - Skin Skin Exam: Dry, Intact, Normal Color, Warm Assessment and Plan (1) CHF exacerbation Status: Acute (2) Chronic a-fib Status: Acute (3) Dyspnea Status: Acute (4) ESRD (end stage renal disease) on dialysis Status: Acute (5) Uncontrolled diabetes mellitus Status: Acute - Assessment and Plan (Free Text) Assessment: cont iv rx as ordered
--- NOTE | 2018-07-03 19:39 | CP.PCM.PN ---
Subjective - Date & Time of Evaluation Date of Evaluation: 07/03/18 Time of Evaluation: 11:45 - Subjective Subjective: pt seen and examined at bedside no acute overnight events sob less - improving with HD and solumedrol no new medical complaints Objective - Vital Signs/Intake and Output Vital Signs (last 24 hours): Temp Pulse Resp BP Pulse Ox 98.5 F 92 H 20 124/61 96 07/03/18 12:35 07/03/18 12:35 07/03/18 12:35 07/03/18 12:35 07/03/18 12:35 Intake and Output: 07/03/18 07/04/18 18:59 06:59 Intake Total 220 Output Total 0 Balance 220 - Medications Medications: Current Medications Acetaminophen (Tylenol 325mg Tab) 650 mg PO Q6 PRN PRN Reason: Fever >100.4 F Last Admin: 06/26/18 18:19 Dose: 650 mg Apixaban (Eliquis) 2.5 mg PO DAILY [facility] Last Admin: 07/03/18 11:59 Dose: 2.5 mg Budesonide (Pulmicort Respules) 1 mg IH RBID [facility] Last Admin: 07/03/18 19:28 Dose: 0.25 mg Calcium Acetate (Phoslo) 1,334 mg PO TID [facility] Last Admin: 07/03/18 13:22 Dose: 1,334 mg Diltiazem HCl (Cardizem Cd) 240 mg PO DAILY [facility] Last Admin: 07/03/18 13:22 Dose: 240 mg Epoetin Eddie (Procrit) 10,000 unit IV MWF [facility] Last Admin: 07/03/18 10:11 Dose: 10,000 unit Famotidine (Pepcid) 20 mg PO DAILY [facility] Last Admin: 07/03/18 12:00 Dose: 20 mg Fluticasone/Vilanterol (Breo Ellipta 200-25 Mcg Inh) 1 puff INH RQD [facility] Last Admin: 07/03/18 08:32 Dose: 1 puff Glipizide (Glucotrol) 10 mg PO ACBD [facility] Last Admin: 07/03/18 16:51 Dose: 10 mg Guaifenesin/Dextromethorphan (Robitussin Dm) 10 ml PO Q4H PRN PRN Reason: Cough and congestion Last Admin: 03/19/19 09:47 Dose: 10 ml Home Med (Patient's Own Drops) 1 drop OD DAILY [facility] Last Admin: 07/03/18 11:59 Dose: 1 drop Cefepime HCl 1 gm/ Dextrose 50 mls @ 100 mls/hr IVPB Q24H [facility]; Protocol Last Admin: 07/03/18 18:14 Dose: 100 mls/hr Insulin Aspart (Novolog) 10 unit SC ONCE [facility] Insulin Aspart (Novolog) 0 unit SC ACHS [facility]; Protocol Last Admin: 07/03/18 16:31 Dose: 6 units Insulin Detemir (Levemir) 12 unit SC Q12H [facility] Last Admin: 07/03/18 11:58 Dose: 12 units Levothyroxine Sodium (Synthroid) 150 mcg PO DAILY@0630 [facility] Last Admin: 07/03/18 07:10 Dose: 150 mcg Methylprednisolone (Solu-Medrol) 40 mg IVP Q12 [facility] Last Admin: 07/03/18 11:58 Dose: 40 mg Promethazine HCl/Codeine (Phenergan/Codeine Oral Syrup) 10 ml PO Q8H PRN PRN Reason: Cough Last Admin: 07/03/18 04:28 Dose: 10 ml Rosuvastatin Calcium (Crestor) 5 mg PO HS [facility] Last Admin: 07/02/18 21:10 Dose: 5 mg Tiotropium [place] (Spiriva) 18 mcg INH RQ24 [facility] Last Admin: 07/03/18 08:32 Dose: 18 mcg - Labs Labs: 07/03/18 06:50 07/03/18 06:50 - Constitutional Appears: Well - Head Exam Head Exam: ATRAUMATIC, NORMAL INSPECTION, NORMOCEPHALIC - Eye Exam Eye Exam: EOMI, Normal appearance, PERRL Pupil Exam: NORMAL ACCOMODATION, PERRL - ENT Exam ENT Exam: Mucous Membranes Moist, Normal Exam - Neck Exam Neck Exam: Full ROM, Normal Inspection. absent: Lymphadenopathy - Respiratory Exam Respiratory Exam: Decreased Breath Sounds - Cardiovascular Exam Cardiovascular Exam: REGULAR RHYTHM, +S1, +S2 - GI/Abdominal Exam GI & Abdominal Exam: Soft, Diminished Bowel Sounds - Rectal Exam Rectal Exam: Deferred Assessment and Plan (1) CHF exacerbation Status: Acute (2) Dyspnea Status: Acute (3) ESRD (end stage renal disease) on dialysis Status: Acute (4) Uncontrolled diabetes mellitus Status: Acute (5) MARIA EUGENIA (acute kidney injury) Status: Acute (6) Abdominal pain Status: Acute (7) Acute bronchitis Status: Acute (8) Acute kidney injury Status: Acute (9) Acute kidney injury superimposed on chronic kidney disease Status: Acute (10) Acute respiratory failure Status: Acute (11) Anemia Status: Acute (12) Anemia of chronic disease Status: Acute (13) Atrial fibrillation with controlled ventricular response Status: Acute (14) Back pain of thoracolumbar region Status: Acute (15) Bronchitis Status: Acute (16) Bronchitis Status: Acute (17) CHF (congestive heart failure) Status: Acute (18) CHF (congestive heart failure) Status: Acute (19) CKD (chronic kidney disease) stage 3, GFR 30-59 ml/min Status: Acute (20) COPD (chronic obstructive pulmonary disease) Status: Acute (21) COPD exacerbation Status: Acute (22) COPD exacerbation Status: Acute (23) Chest pain Status: Acute (24) ESR raised Status: Acute (25) ESRD (end stage renal disease) Status: Acute (26) Fluid overload Status: Acute (27) Fluid overload, unspecified Status: Acute (28) Gastritis Status: Acute (29) Hepatitis Status: Acute (30) History of asthma Status: Acute (31) History of atrial fibrillation Status: Acute (32) History of back pain Status: Acute (33) History of gastroesophageal reflux (GERD) Status: Acute (34) Hypercalcemia Status: Acute (35) Hyperlipemia Status: Acute (36) Influenza Status: Acute (37) Leucocytosis Status: Acute (38) Lower extremity pain Status: Acute (39) Multiple myeloma Status: Acute (40) Multiple myeloma Status: Acute (41) Myeloma Status: Acute (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 (43) Occult gastrointestinal hemorrhage Status: Acute (44) Paroxysmal A-fib Status: Acute (45) Pneumonia Status: Acute (46) Prophylactic measure Status: Acute (47) Pulmonary hypertension Status: Acute (48) Pulmonary hypertension Status: Acute (49) Renal failure Status: Acute (50) Respiratory tract infection Status: Acute (51) Streptococcus pneumoniae Status: Acute (52) Symptomatic anemia Status: Acute (53) Vertigo Status: Acute (54) Worsening renal function Status: Acute (55) Anemia Status: Chronic (56) Asthma Status: Chronic (57) Atrial fibrillation Status: Chronic (58) Chronic diastolic (congestive) heart failure Status: Chronic (59) Diabetes Status: Chronic (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
[2018-07-04] MEDS: Levothyroxine 150 MCG TAB PO SCH (06:49)
[2018-07-04] MEDS: Budesonide 0.25 mg/2 ml Inhal Susp UD IH SCH ×2 (07:38→20:14)
[2018-07-04] MEDS: Tiotropium 18 mcg Cap For Inhalation INH SCH (07:38)
[2018-07-04] MEDS: Fluticasone-Vilanterol 200/25mcg Diskus INH SCH (07:39)
--- NOTE | 2018-07-04 09:07 | CP.PCM.PN ---
Subjective - Date & Time of Evaluation Date of Evaluation: 07/04/18 Time of Evaluation: 09:05 - Subjective Subjective: feels same; likely deconditioned, not ambulating post dialysis 07/03 Hg remains low-has MM Remains in NSR Objective - Vital Signs/Intake and Output Vital Signs (last 24 hours): Temp Pulse Resp BP Pulse Ox 98.6 F 72 17 139/59 L 97 07/04/18 04:00 07/04/18 04:00 07/04/18 04:00 07/04/18 04:00 07/04/18 04:00 Intake and Output: 07/04/18 07/04/18 06:59 18:59 Intake Total 250 Output Total 0 Balance 250 - Medications Medications: Current Medications Acetaminophen (Tylenol 325mg Tab) 650 mg PO Q6 PRN PRN Reason: Fever >100.4 F Last Admin: 06/26/18 18:19 Dose: 650 mg Apixaban (Eliquis) 2.5 mg PO DAILY [facility] Last Admin: 07/03/18 11:59 Dose: 2.5 mg Budesonide (Pulmicort Respules) 1 mg IH RBID [facility] Last Admin: 07/04/18 07:38 Dose: 0.25 mg Calcium Acetate (Phoslo) 1,334 mg PO TID [facility] Last Admin: 07/03/18 13:22 Dose: 1,334 mg Diltiazem HCl (Cardizem Cd) 240 mg PO DAILY [facility] Last Admin: 07/03/18 13:22 Dose: 240 mg Epoetin Eddie (Procrit) 10,000 unit IV MWF [facility] Last Admin: 07/03/18 10:11 Dose: 10,000 unit Famotidine (Pepcid) 20 mg PO DAILY [facility] Last Admin: 07/03/18 12:00 Dose: 20 mg Fluticasone/Vilanterol (Breo Ellipta 200-25 Mcg Inh) 1 puff INH RQD [facility] Last Admin: 07/04/18 07:39 Dose: 1 puff Glipizide (Glucotrol) 10 mg PO ACBD [facility] Last Admin: 07/03/18 16:51 Dose: 10 mg Guaifenesin/Dextromethorphan (Robitussin Dm) 10 ml PO Q4H PRN PRN Reason: Cough and congestion Last Admin: 07/02/18 09:47 Dose: 10 ml Home Med (Patient's Own Drops) 1 drop OD DAILY [facility] Last Admin: 07/03/18 11:59 Dose: 1 drop Cefepime HCl 1 gm/ Dextrose 50 mls @ 100 mls/hr IVPB Q24H [facility]; Protocol Last Admin: 07/03/18 18:14 Dose: 100 mls/hr Insulin Aspart (Novolog) 10 unit SC ONCE [facility] Insulin Aspart (Novolog) 0 unit SC ACHS [facility]; Protocol Last Admin: 07/03/18 21:12 Dose: Not Given Insulin Detemir (Levemir) 12 unit SC Q12H [facility] Last Admin: 07/03/18 22:41 Dose: 12 units Levothyroxine Sodium (Synthroid) 150 mcg PO DAILY@0630 [facility] Last Admin: 07/04/18 06:49 Dose: 150 mcg Methylprednisolone (Solu-Medrol) 40 mg IVP Q12 [facility] Last Admin: 07/03/18 21:32 Dose: 40 mg Promethazine HCl/Codeine (Phenergan/Codeine Oral Syrup) 10 ml PO Q8H PRN PRN Reason: Cough Last Admin: 07/03/18 04:28 Dose: 10 ml Rosuvastatin Calcium (Crestor) 5 mg PO HS [facility] Last Admin: 07/03/18 21:32 Dose: 5 mg Tiotropium [place] (Spiriva) 18 mcg INH RQ24 [facility] Last Admin: 07/04/18 07:38 Dose: 18 mcg - Labs Labs: 07/03/18 06:50 07/03/18 06:50 - Constitutional Appears: No Acute Distress, Chronically Ill - Head Exam Head Exam: ATRAUMATIC, NORMAL INSPECTION - Eye Exam Eye Exam: EOMI, Normal appearance - Neck Exam Neck Exam: Normal Inspection. absent: Tenderness - Respiratory Exam Respiratory Exam: Clear to Ausculation Bilateral, NORMAL BREATHING PATTERN - Cardiovascular Exam Cardiovascular Exam: REGULAR RHYTHM, +S1 - GI/Abdominal Exam GI & Abdominal Exam: Soft. absent: Tenderness - Extremities Exam Extremities Exam: Normal Inspection. absent: Tenderness - Neurological Exam Neurological Exam: Awake, CN II-XII Intact - Skin Skin Exam: Dry, Warm Assessment and Plan (1) Atrial fibrillation with RVR Status: Resolved (2) CHF exacerbation Status: Acute (3) COPD exacerbation Status: Acute (4) Multiple myeloma Status: Acute - Assessment and Plan (Free Text) Plan: dialysis in AM consider transfusion- check HG increase ambulation- needs Phys Tx
[2018-07-04] MEDS: MethylPREDNISolone 40 mg Vial IVP SCH ×2 (11:17→21:47)
[2018-07-04] MEDS: Insulin Detemir 100 units/ml Vial (Levemir) SC SCH ×2 (11:17→22:34)
[2018-07-04] MEDS: diltiaZEM 240 mg/24 Hours CD Cap PO SCH (11:17)
[2018-07-04] MEDS: BROMFENAC 0.07% OD SCH ×2 (11:18→17:09)
[2018-07-04] MEDS: (Novolog) Insulin Aspart, Recombinant 100 u/ml 10 ml vial SC SCH ×3 (14:09→22:35)
[2018-07-04] MEDS: guaiFENesin DM 200 mg-20 mg/10 ml UD PO PRN (16:59)
--- NOTE | 2018-07-04 18:04 | CP.PCM.PN ---
Subjective - Date & Time of Evaluation Date of Evaluation: 07/04/18 Time of Evaluation: 18:04 Objective - Vital Signs/Intake and Output Vital Signs (last 24 hours): Temp Pulse Resp BP Pulse Ox 98.6 F 72 17 139/59 L 97 07/04/18 04:00 07/04/18 04:00 07/04/18 04:00 07/04/18 04:00 07/04/18 04:00 Intake and Output: 07/04/18 07/04/18 06:59 18:59 Intake Total 250 Output Total 0 Balance 250 - Medications Medications: Current Medications Acetaminophen (Tylenol 325mg Tab) 650 mg PO Q6 PRN PRN Reason: Fever >100.4 F Last Admin: 06/26/18 18:19 Dose: 650 mg Apixaban (Eliquis) 2.5 mg PO DAILY [facility] Last Admin: 07/04/18 11:17 Dose: 2.5 mg Budesonide (Pulmicort Respules) 1 mg IH RBID [facility] Last Admin: 07/04/18 07:38 Dose: 0.25 mg Calcium Acetate (Phoslo) 1,334 mg PO TID [facility] Last Admin: 07/04/18 17:23 Dose: 1,334 mg Diltiazem HCl (Cardizem Cd) 240 mg PO DAILY [facility] Last Admin: 07/04/18 11:17 Dose: 240 mg Epoetin Eddie (Procrit) 10,000 unit IV MWF [facility] Last Admin: 07/03/18 10:11 Dose: 10,000 unit Famotidine (Pepcid) 20 mg PO DAILY [facility] Last Admin: 07/04/18 11:17 Dose: 20 mg Fluticasone/Vilanterol (Breo Ellipta 200-25 Mcg Inh) 1 puff INH RQD [facility] Last Admin: 07/04/18 07:39 Dose: 1 puff Glipizide (Glucotrol) 10 mg PO ACBD [facility] Last Admin: 07/04/18 17:08 Dose: 10 mg Guaifenesin/Dextromethorphan (Robitussin Dm) 10 ml PO Q4H PRN PRN Reason: Cough and congestion Last Admin: 07/04/18 16:59 Dose: 10 ml Home Med (Patient's Own Drops) 1 drop OD DAILY [facility] Last Admin: 03/21/19 17:09 Dose: 1 drop Cefepime HCl 1 gm/ Dextrose 50 mls @ 100 mls/hr IVPB Q24H [facility]; Protocol Last Admin: 07/03/18 18:14 Dose: 100 mls/hr Insulin Aspart (Novolog) 10 unit SC ONCE [facility] Insulin Aspart (Novolog) 0 unit SC ACHS [facility]; Protocol Last Admin: 07/04/18 17:24 Dose: 4 units Insulin Detemir (Levemir) 12 unit SC Q12H [facility] Last Admin: 07/04/18 11:17 Dose: 12 units Levothyroxine Sodium (Synthroid) 150 mcg PO DAILY@0630 [facility] Last Admin: 07/04/18 06:49 Dose: 150 mcg Methylprednisolone (Solu-Medrol) 40 mg IVP Q12 [facility] Last Admin: 07/04/18 11:17 Dose: 40 mg Promethazine HCl/Codeine (Phenergan/Codeine Oral Syrup) 10 ml PO Q8H PRN PRN Reason: Cough Last Admin: 07/03/18 04:28 Dose: 10 ml Rosuvastatin Calcium (Crestor) 5 mg PO HS [facility] Last Admin: 07/03/18 21:32 Dose: 5 mg Tiotropium [place] (Spiriva) 18 mcg INH RQ24 [facility] Last Admin: 07/04/18 07:38 Dose: 18 mcg - Labs Labs: 07/03/18 06:50 07/03/18 06:50 Assessment and Plan (1) CHF exacerbation Status: Acute (2) Dyspnea Status: Acute (3) Atrial fibrillation with RVR Status: Resolved (4) COPD (chronic obstructive pulmonary disease) Status: Acute (5) ESRD (end stage renal disease) Status: Acute
--- NOTE | 2018-07-04 19:03 | CP.PCM.PN ---
Subjective - Date & Time of Evaluation Date of Evaluation: 07/04/18 Time of Evaluation: 08:30 - Subjective Subjective: pt seen and examined at bedside no acute overnight events no resp distress - sob still but less no chest pain or abdominal pain or fever Objective - Vital Signs/Intake and Output Vital Signs (last 24 hours): Temp Pulse Resp BP Pulse Ox 98.6 F 72 17 139/59 L 97 07/04/18 04:00 07/04/18 04:00 07/04/18 04:00 07/04/18 04:00 07/04/18 04:00 - Medications Medications: Current Medications Acetaminophen (Tylenol 325mg Tab) 650 mg PO Q6 PRN PRN Reason: Fever >100.4 F Last Admin: 06/26/18 18:19 Dose: 650 mg Apixaban (Eliquis) 2.5 mg PO DAILY [facility] Last Admin: 07/04/18 11:17 Dose: 2.5 mg Budesonide (Pulmicort Respules) 1 mg IH RBID [facility] Last Admin: 07/04/18 07:38 Dose: 0.25 mg Calcium Acetate (Phoslo) 1,334 mg PO TID [facility] Last Admin: 07/04/18 17:23 Dose: 1,334 mg Diltiazem HCl (Cardizem Cd) 240 mg PO DAILY [facility] Last Admin: 07/04/18 11:17 Dose: 240 mg Epoetin Eddie (Procrit) 10,000 unit IV MWF [facility] Last Admin: 07/03/18 10:11 Dose: 10,000 unit Famotidine (Pepcid) 20 mg PO DAILY [facility] Last Admin: 07/04/18 11:17 Dose: 20 mg Fluticasone/Vilanterol (Breo Ellipta 200-25 Mcg Inh) 1 puff INH RQD [facility] Last Admin: 07/04/18 07:39 Dose: 1 puff Glipizide (Glucotrol) 10 mg PO ACBD [facility] Last Admin: 07/04/18 17:08 Dose: 10 mg Guaifenesin/Dextromethorphan (Robitussin Dm) 10 ml PO Q4H PRN PRN Reason: Cough and congestion Last Admin: 07/04/18 16:59 Dose: 10 ml Home Med (Patient's Own Drops) 1 drop OD DAILY [facility] Last Admin: 07/04/18 17:09 Dose: 1 drop Cefepime HCl 1 gm/ Dextrose 50 mls @ 100 mls/hr IVPB Q24H [facility]; Protocol Last Admin: 07/03/18 18:14 Dose: 100 mls/hr Insulin Aspart (Novolog) 10 unit SC ONCE [facility] Insulin Aspart (Novolog) 0 unit SC ACHS [facility]; Protocol Last Admin: 07/04/18 17:24 Dose: 4 units Insulin Detemir (Levemir) 12 unit SC Q12H [facility] Last Admin: 07/04/18 11:17 Dose: 12 units Levothyroxine Sodium (Synthroid) 150 mcg PO DAILY@0630 [facility] Last Admin: 07/04/18 06:49 Dose: 150 mcg Methylprednisolone (Solu-Medrol) 40 mg IVP Q12 [facility] Last Admin: 07/04/18 11:17 Dose: 40 mg Promethazine HCl/Codeine (Phenergan/Codeine Oral Syrup) 10 ml PO Q8H PRN PRN Reason: Cough Last Admin: 07/03/18 04:28 Dose: 10 ml Rosuvastatin Calcium (Crestor) 5 mg PO HS [facility] Last Admin: 07/03/18 21:32 Dose: 5 mg Tiotropium [place] (Spiriva) 18 mcg INH RQ24 [facility] Last Admin: 07/04/18 07:38 Dose: 18 mcg - Labs Labs: 07/03/18 06:50 07/03/18 06:50 - Constitutional Appears: Well - Head Exam Head Exam: ATRAUMATIC, NORMAL INSPECTION, NORMOCEPHALIC - Eye Exam Eye Exam: EOMI, Normal appearance, PERRL Pupil Exam: NORMAL ACCOMODATION, PERRL - ENT Exam ENT Exam: Mucous Membranes Moist, Normal Exam - Neck Exam Neck Exam: Full ROM, Normal Inspection. absent: Lymphadenopathy - Respiratory Exam Respiratory Exam: Decreased Breath Sounds - Cardiovascular Exam Cardiovascular Exam: REGULAR RHYTHM, +S1, +S2 - GI/Abdominal Exam GI & Abdominal Exam: Soft, Diminished Bowel Sounds - Rectal Exam Rectal Exam: Deferred Assessment and Plan (1) CHF exacerbation Status: Acute (2) Dyspnea Status: Acute (3) ESRD (end stage renal disease) on dialysis Status: Acute (4) Uncontrolled diabetes mellitus Status: Acute (5) MARIA EUGENIA (acute kidney injury) Status: Acute (6) Abdominal pain Status: Acute (7) Acute bronchitis Status: Acute (8) Acute kidney injury Status: Acute (9) Acute kidney injury superimposed on chronic kidney disease Status: Acute (10) Acute respiratory failure Status: Acute (11) Anemia Status: Acute (12) Anemia of chronic disease Status: Acute (13) Atrial fibrillation with controlled ventricular response Status: Acute (14) Back pain of thoracolumbar region Status: Acute (15) Bronchitis Status: Acute (16) Bronchitis Status: Acute (17) CHF (congestive heart failure) Status: Acute (18) CHF (congestive heart failure) Status: Acute (19) CKD (chronic kidney disease) stage 3, GFR 30-59 ml/min Status: Acute (20) COPD (chronic obstructive pulmonary disease) Status: Acute (21) COPD exacerbation Status: Acute (22) COPD exacerbation Status: Acute (23) Chest pain Status: Acute (24) ESR raised Status: Acute (25) ESRD (end stage renal disease) Status: Acute (26) Fluid overload Status: Acute (27) Fluid overload, unspecified Status: Acute (28) Gastritis Status: Acute (29) Hepatitis Status: Acute (30) History of asthma Status: Acute (31) History of atrial fibrillation Status: Acute (32) History of back pain Status: Acute (33) History of gastroesophageal reflux (GERD) Status: Acute (34) Hypercalcemia Status: Acute (35) Hyperlipemia Status: Acute (36) Influenza Status: Acute (37) Leucocytosis Status: Acute (38) Lower extremity pain Status: Acute (39) Multiple myeloma Status: Acute (40) Multiple myeloma Status: Acute (41) Myeloma Status: Acute (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 (43) Occult gastrointestinal hemorrhage Status: Acute (44) Paroxysmal A-fib Status: Acute (45) Pneumonia Status: Acute (46) Prophylactic measure Status: Acute (47) Pulmonary hypertension Status: Acute (48) Pulmonary hypertension Status: Acute (49) Renal failure Status: Acute (50) Respiratory tract infection Status: Acute (51) Streptococcus pneumoniae Status: Acute (52) Symptomatic anemia Status: Acute (53) Vertigo Status: Acute (54) Worsening renal function Status: Acute (55) Anemia Status: Chronic (56) Asthma Status: Chronic (57) Atrial fibrillation Status: Chronic (58) Chronic diastolic (congestive) heart failure Status: Chronic (59) Diabetes Status: Chronic (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
[2018-07-05] MEDS: Levothyroxine 150 MCG TAB PO SCH (06:09)
[2018-07-05 07:47] LABS: HEMOGLOBIN 8.1 g/dL (11.0-16.0); MEAN CELL VOLUME 87.2 fL (81.0-99.0); MEAN CORPUSCULAR HEMOGLOBIN 27.1 pg (27.0-31.0); MEAN PLATELET VOLUME 10.4 fL (7.2-11.7); RED CELL DISTRIBUTION WIDTH 17.7 % (11.5-14.5); WHITE BLOOD COUNT 26.5 K/uL (4.8-10.8)
[2018-07-05] MEDS: (Novolog) Insulin Aspart, Recombinant 100 u/ml 10 ml vial SC SCH ×4 (08:08→21:38)
[2018-07-05 08:18] LABS: ALB/GLOB RATIO 0.9 (1.0-2.1); ALBUMIN 2.8 g/dL (3.5-5.0); CALCIUM 8.5 mg/dl (8.6-10.4)
[2018-07-05] MEDS: BROMFENAC 0.07% OD SCH (10:38)
[2018-07-05] MEDS: diltiaZEM 240 mg/24 Hours CD Cap PO SCH (10:39)
[2018-07-05] MEDS: Insulin Detemir 100 units/ml Vial (Levemir) SC SCH ×2 (10:40→23:00)
[2018-07-05] MEDS: MethylPREDNISolone 40 mg Vial IVP SCH ×2 (10:40→21:39)
[2018-07-05] MEDS: Tiotropium 18 mcg Cap For Inhalation INH SCH (11:22)
[2018-07-05] MEDS: Fluticasone-Vilanterol 200/25mcg Diskus INH SCH (11:22)
[2018-07-05] MEDS: Budesonide 0.25 mg/2 ml Inhal Susp UD IH SCH ×2 (11:22→21:26)
--- NOTE | 2018-07-05 14:24 | CP.PCM.PN ---
Subjective - Date & Time of Evaluation Date of Evaluation: 07/05/18 Time of Evaluation: 14:21 - Subjective Subjective: still with cough repeat episode epistaxis this AM for dialysis now still very weak Objective - Vital Signs/Intake and Output Vital Signs (last 24 hours): Temp Pulse Resp BP Pulse Ox 98.2 F 86 20 136/56 L 98 07/05/18 07:00 07/05/18 11:00 07/05/18 07:00 07/05/18 07:00 07/05/18 07:00 Intake and Output: 07/05/18 07/05/18 06:59 18:59 Intake Total 350 Balance 350 - Medications Medications: Current Medications Acetaminophen (Tylenol 325mg Tab) 650 mg PO Q6 PRN PRN Reason: Fever >100.4 F Last Admin: 06/26/18 18:19 Dose: 650 mg Apixaban (Eliquis) 2.5 mg PO DAILY [facility] Last Admin: 07/05/18 10:39 Dose: 2.5 mg Budesonide (Pulmicort Respules) 1 mg IH RBID [facility] Last Admin: 07/05/18 11:22 Dose: 0.25 mg Calcium Acetate (Phoslo) 1,334 mg PO TID [facility] Last Admin: 07/05/18 13:11 Dose: 1,334 mg Diltiazem HCl (Cardizem Cd) 240 mg PO DAILY [facility] Last Admin: 07/05/18 10:39 Dose: 240 mg Epoetin Eddie (Procrit) 10,000 unit IV MWF [facility] Last Admin: 07/03/18 10:11 Dose: 10,000 unit Famotidine (Pepcid) 20 mg PO DAILY [facility] Last Admin: 07/05/18 10:39 Dose: 20 mg Fluticasone/Vilanterol (Breo Ellipta 200-25 Mcg Inh) 1 puff INH RQD [facility] Last Admin: 07/05/18 11:22 Dose: 1 puff Glipizide (Glucotrol) 10 mg PO ACBD [facility] Last Admin: 07/05/18 08:08 Dose: 10 mg Guaifenesin/Dextromethorphan (Robitussin Dm) 10 ml PO Q4H PRN PRN Reason: Cough and congestion Last Admin: 07/04/18 16:59 Dose: 10 ml Home Med (Patient's Own Drops) 1 drop OD DAILY [facility] Last Admin: 07/05/18 10:38 Dose: 1 drop Cefepime HCl 1 gm/ Dextrose 50 mls @ 100 mls/hr IVPB Q24H [facility]; Protocol Last Admin: 07/04/18 20:00 Dose: 100 mls/hr Insulin Aspart (Novolog) 10 unit SC ONCE [facility] Insulin Aspart (Novolog) 0 unit SC ACHS [facility]; Protocol Last Admin: 07/05/18 12:22 Dose: 6 units Insulin Detemir (Levemir) 12 unit SC Q12H [facility] Last Admin: 07/05/18 10:40 Dose: 12 units Levothyroxine Sodium (Synthroid) 150 mcg PO DAILY@0630 [facility] Last Admin: 07/05/18 06:09 Dose: 150 mcg Methylprednisolone (Solu-Medrol) 40 mg IVP Q12 [facility] Last Admin: 07/05/18 10:40 Dose: 40 mg Promethazine HCl/Codeine (Phenergan/Codeine Oral Syrup) 10 ml PO Q8H PRN PRN Reason: Cough Last Admin: 07/03/18 04:28 Dose: 10 ml Rosuvastatin Calcium (Crestor) 5 mg PO HS [facility] Last Admin: 07/04/18 21:47 Dose: 5 mg Tiotropium [place] (Spiriva) 18 mcg INH RQ24 [facility] Last Admin: 07/05/18 11:22 Dose: Not Given - Labs Labs: 07/05/18 07:21 07/05/18 07:21 - Constitutional Appears: No Acute Distress, Chronically Ill - Head Exam Head Exam: ATRAUMATIC, NORMAL INSPECTION - Eye Exam Eye Exam: EOMI, Normal appearance - Neck Exam Neck Exam: Full ROM. absent: Normal Inspection - Respiratory Exam Respiratory Exam: Rhonchi, NORMAL BREATHING PATTERN - Cardiovascular Exam Cardiovascular Exam: REGULAR RHYTHM, +S1 - GI/Abdominal Exam GI & Abdominal Exam: Soft. absent: Tenderness - Extremities Exam Extremities Exam: Normal Inspection, Tenderness - Neurological Exam Neurological Exam: Awake, CN II-XII Intact - Skin Skin Exam: Dry, Warm Assessment and Plan (1) Atrial fibrillation with RVR Status: Resolved (2) CHF exacerbation Status: Acute (3) COPD exacerbation Status: Acute (4) Multiple myeloma Status: Acute - Assessment and Plan (Free Text) Plan: dialysis now recommend blood transfusion with dialysis change eiquis to q 48h
--- NOTE | 2018-07-05 17:45 | CP.PCM.PN ---
Subjective - Date & Time of Evaluation Date of Evaluation: 07/05/18 Time of Evaluation: 17:45 Objective - Vital Signs/Intake and Output Vital Signs (last 24 hours): Temp Pulse Resp BP Pulse Ox 98.2 F 86 20 136/56 L 98 07/05/18 07:00 07/05/18 11:00 07/05/18 07:00 07/05/18 07:00 07/05/18 07:00 Intake and Output: 07/05/18 07/05/18 06:59 18:59 Intake Total 350 Balance 350 - Medications Medications: Current Medications Acetaminophen (Tylenol 325mg Tab) 650 mg PO Q6 PRN PRN Reason: Fever >100.4 F Last Admin: 06/26/18 18:19 Dose: 650 mg Apixaban (Eliquis) 2.5 mg PO Q48H [facility] Budesonide (Pulmicort Respules) 1 mg IH RBID [facility] Last Admin: 07/05/18 11:22 Dose: 0.25 mg Calcium Acetate (Phoslo) 1,334 mg PO TID [facility] Last Admin: 07/05/18 13:11 Dose: 1,334 mg Diltiazem HCl (Cardizem Cd) 240 mg PO DAILY [facility] Last Admin: 07/05/18 10:39 Dose: 240 mg Epoetin Eddie (Procrit) 10,000 unit IV MWF [facility] Last Admin: 07/03/18 10:11 Dose: 10,000 unit Famotidine (Pepcid) 20 mg PO DAILY [facility] Last Admin: 07/05/18 10:39 Dose: 20 mg Fluticasone/Vilanterol (Breo Ellipta 200-25 Mcg Inh) 1 puff INH RQD [facility] Last Admin: 07/05/18 11:22 Dose: 1 puff Glipizide (Glucotrol) 10 mg PO ACBD [facility] Last Admin: 07/05/18 08:08 Dose: 10 mg Guaifenesin/Dextromethorphan (Robitussin Dm) 10 ml PO Q4H PRN PRN Reason: Cough and congestion Last Admin: 07/04/18 16:59 Dose: 10 ml Home Med (Patient's Own Drops) 1 drop OD DAILY [facility] Last Admin: 07/05/18 10:38 Dose: 1 drop Cefepime HCl 1 gm/ Dextrose 50 mls @ 100 mls/hr IVPB Q24H [facility]; Protocol Last Admin: 07/04/18 20:00 Dose: 100 mls/hr Insulin Aspart (Novolog) 10 unit SC ONCE [facility] Insulin Aspart (Novolog) 0 unit SC ACHS [facility]; Protocol Last Admin: 07/05/18 12:22 Dose: 6 units Insulin Detemir (Levemir) 12 unit SC Q12H [facility] Last Admin: 07/05/18 10:40 Dose: 12 units Levothyroxine Sodium (Synthroid) 150 mcg PO DAILY@0630 [facility] Last Admin: 07/05/18 06:09 Dose: 150 mcg Methylprednisolone (Solu-Medrol) 40 mg IVP Q12 [facility] Last Admin: 07/05/18 10:40 Dose: 40 mg Promethazine HCl/Codeine (Phenergan/Codeine Oral Syrup) 10 ml PO Q8H PRN PRN Reason: Cough Last Admin: 07/03/18 04:28 Dose: 10 ml Rosuvastatin Calcium (Crestor) 5 mg PO HS [facility] Last Admin: 07/04/18 21:47 Dose: 5 mg Tiotropium [place] (Spiriva) 18 mcg INH RQ24 [facility] Last Admin: 07/05/18 11:22 Dose: Not Given - Labs Labs: 07/05/18 07:21 07/05/18 07:21 Assessment and Plan (1) CHF exacerbation Status: Acute (2) Dyspnea Status: Acute (3) Atrial fibrillation with RVR Status: Resolved (4) COPD (chronic obstructive pulmonary disease) Status: Acute (5) ESRD (end stage renal disease) Status: Acute
--- NOTE | 2018-07-05 19:36 | CP.PCM.PN ---
Subjective - Date & Time of Evaluation Date of Evaluation: 07/05/18 Time of Evaluation: 08:45 - Subjective Subjective: pt seen and examined no acute distress iv rx in progress consultants following sob still but less no chest pain or abdominal pain Objective - Vital Signs/Intake and Output Vital Signs (last 24 hours): Temp Pulse Resp BP Pulse Ox 97.7 F 78 18 122/63 97 07/05/18 17:30 07/05/18 17:30 07/05/18 17:30 07/05/18 19:00 07/05/18 17:30 - Medications Medications: Current Medications Acetaminophen (Tylenol 325mg Tab) 650 mg PO Q6 PRN PRN Reason: Fever >100.4 F Last Admin: 06/26/18 18:19 Dose: 650 mg Apixaban (Eliquis) 2.5 mg PO Q48H [facility] Budesonide (Pulmicort Respules) 1 mg IH RBID [facility] Last Admin: 07/05/18 11:22 Dose: 0.25 mg Calcium Acetate (Phoslo) 1,334 mg PO TID [facility] Last Admin: 07/05/18 13:11 Dose: 1,334 mg Diltiazem HCl (Cardizem Cd) 240 mg PO DAILY [facility] Last Admin: 07/05/18 10:39 Dose: 240 mg Epoetin Eddie (Procrit) 10,000 unit IV MWF [facility] Last Admin: 07/03/18 10:11 Dose: 10,000 unit Famotidine (Pepcid) 20 mg PO DAILY [facility] Last Admin: 07/05/18 10:39 Dose: 20 mg Fluticasone/Vilanterol (Breo Ellipta 200-25 Mcg Inh) 1 puff INH RQD [facility] Last Admin: 07/05/18 11:22 Dose: 1 puff Glipizide (Glucotrol) 10 mg PO ACBD [facility] Last Admin: 07/05/18 08:08 Dose: 10 mg Guaifenesin/Dextromethorphan (Robitussin Dm) 10 ml PO Q4H PRN PRN Reason: Cough and congestion Last Admin: 07/04/18 16:59 Dose: 10 ml Home Med (Patient's Own Drops) 1 drop OD DAILY [facility] Last Admin: 07/05/18 10:38 Dose: 1 drop Cefepime HCl 1 gm/ Dextrose 50 mls @ 100 mls/hr IVPB Q24H [facility]; Protocol Last Admin: 07/04/18 20:00 Dose: 100 mls/hr Insulin Aspart (Novolog) 10 unit SC ONCE [facility] Insulin Aspart (Novolog) 0 unit SC ACHS [facility]; Protocol Last Admin: 07/05/18 12:22 Dose: 6 units Insulin Detemir (Levemir) 12 unit SC Q12H [facility] Last Admin: 07/05/18 10:40 Dose: 12 units Levothyroxine Sodium (Synthroid) 150 mcg PO DAILY@0630 [facility] Last Admin: 07/05/18 06:09 Dose: 150 mcg Methylprednisolone (Solu-Medrol) 40 mg IVP Q12 [facility] Last Admin: 07/05/18 10:40 Dose: 40 mg Promethazine HCl/Codeine (Phenergan/Codeine Oral Syrup) 10 ml PO Q8H PRN PRN Reason: Cough Last Admin: 07/03/18 04:28 Dose: 10 ml Rosuvastatin Calcium (Crestor) 5 mg PO HS [facility] Last Admin: 07/04/18 21:47 Dose: 5 mg Tiotropium [place] (Spiriva) 18 mcg INH RQ24 [facility] Last Admin: 07/05/18 11:22 Dose: Not Given - Labs Labs: 07/05/18 07:21 07/05/18 07:21 - Constitutional Appears: Well - Head Exam Head Exam: ATRAUMATIC, NORMAL INSPECTION, NORMOCEPHALIC - Eye Exam Eye Exam: EOMI, Normal appearance, PERRL Pupil Exam: NORMAL ACCOMODATION, PERRL - ENT Exam ENT Exam: Mucous Membranes Moist, Normal Exam - Neck Exam Neck Exam: Full ROM, Normal Inspection. absent: Lymphadenopathy - Respiratory Exam Respiratory Exam: Decreased Breath Sounds - Cardiovascular Exam Cardiovascular Exam: REGULAR RHYTHM, +S1, +S2 - GI/Abdominal Exam GI & Abdominal Exam: Soft, Diminished Bowel Sounds - Rectal Exam Rectal Exam: Deferred Assessment and Plan (1) CHF exacerbation Status: Acute (2) Dyspnea Status: Acute (3) ESRD (end stage renal disease) on dialysis Status: Acute (4) Uncontrolled diabetes mellitus Status: Acute (5) MARIA EUGENIA (acute kidney injury) Status: Acute (6) Abdominal pain Status: Acute (7) Acute bronchitis Status: Acute (8) Acute kidney injury Status: Acute (9) Acute kidney injury superimposed on chronic kidney disease Status: Acute (10) Acute respiratory failure Status: Acute (11) Anemia Status: Acute (12) Anemia of chronic disease Status: Acute (13) Atrial fibrillation with controlled ventricular response Status: Acute (14) Back pain of thoracolumbar region Status: Acute (15) Bronchitis Status: Acute (16) Bronchitis Status: Acute (17) CHF (congestive heart failure) Status: Acute (18) CHF (congestive heart failure) Status: Acute (19) CKD (chronic kidney disease) stage 3, GFR 30-59 ml/min Status: Acute (20) COPD (chronic obstructive pulmonary disease) Status: Acute (21) COPD exacerbation Status: Acute (22) COPD exacerbation Status: Acute (23) Chest pain Status: Acute (24) ESR raised Status: Acute (25) ESRD (end stage renal disease) Status: Acute (26) Fluid overload Status: Acute (27) Fluid overload, unspecified Status: Acute (28) Gastritis Status: Acute (29) Hepatitis Status: Acute (30) History of asthma Status: Acute (31) History of atrial fibrillation Status: Acute (32) History of back pain Status: Acute (33) History of gastroesophageal reflux (GERD) Status: Acute (34) Hypercalcemia Status: Acute (35) Hyperlipemia Status: Acute (36) Influenza Status: Acute (37) Leucocytosis Status: Acute (38) Lower extremity pain Status: Acute (39) Multiple myeloma Status: Acute (40) Multiple myeloma Status: Acute (41) Myeloma Status: Acute (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 (43) Occult gastrointestinal hemorrhage Status: Acute (44) Paroxysmal A-fib Status: Acute (45) Pneumonia Status: Acute (46) Prophylactic measure Status: Acute (47) Pulmonary hypertension Status: Acute (48) Pulmonary hypertension Status: Acute (49) Renal failure Status: Acute (50) Respiratory tract infection Status: Acute (51) Streptococcus pneumoniae Status: Acute (52) Symptomatic anemia Status: Acute (53) Vertigo Status: Acute (54) Worsening renal function Status: Acute (55) Anemia Status: Chronic (56) Asthma Status: Chronic (57) Atrial fibrillation Status: Chronic (58) Chronic diastolic (congestive) heart failure Status: Chronic (59) Diabetes Status: Chronic (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 - Assessment and Plan (Free Text) Plan: empiric iv rx per ID continue duonebs resp support steroid per pulm procrit HD per nephro renal diet meds and labs reviewed vitals stable riana meds as ordered cardizem rate control eliquis a/c riana same f/u with consultants
[2018-07-05] MEDS: Epoetin Alfa 10,000 unit/ml Dialysis IV SCH (20:28)
[2018-07-05] MEDS: Promethazine/Cod 6.25mg-10mg/5ml Syr UD PO PRN (23:56)
[2018-07-06] MEDS: Levothyroxine 150 MCG TAB PO SCH (05:59)
[2018-07-06 06:34] LABS: HEMOGLOBIN 8.1 g/dL (11.0-16.0); LYMPH # 0.3 K/uL (1.0-4.3); LYMPH % 1.4 % (20.0-40.0); MEAN CELL VOLUME 86.8 fL (81.0-99.0); MEAN CORPUSCULAR HEMOGLOBIN 26.4 pg (27.0-31.0); MEAN CORPUSCULAR HGB CONC 30.4 g/dL (33.0-37.0); MEAN PLATELET VOLUME 10.3 fL (7.2-11.7); MONO # 0.6 K/uL (0.0-0.8); NEUT # 20.8 K/uL (1.8-7.0); NEUT % 95.6 % (50.0-75.0); NRBC % 0.1 % (0.0-2.0); PLATELET COUNT 195 K/uL (130-400); RBC 3.08 Mil/uL (3.80-5.20); RED CELL DISTRIBUTION WIDTH 17.6 % (11.5-14.5); WHITE BLOOD COUNT 21.8 K/uL (4.8-10.8)
[2018-07-06] MEDS: (Novolog) Insulin Aspart, Recombinant 100 u/ml 10 ml vial SC SCH ×4 (08:15→22:00)
[2018-07-06] MEDS: diltiaZEM 240 mg/24 Hours CD Cap PO SCH (08:45)
[2018-07-06 08:48] LABS: BANDS 1 % (0-2); LYMPHOCYTE 2 % (20-40); MONOCYTE 2 % (0-10); NEUTROPHIL 95 % (50-75); PLATELET ESTIMATE NORMAL (NORMAL); TOTAL CELLS COUNTED 100
[2018-07-06 08:49] LABS: ANISOCYTOSIS MODERATE; GIANT PLATELETS PRESENT; HYPOCHROMIC MODERATE; LARGE PLATELETS PRESENT; POLYCHROMIC SLIGHT; TOXIC GRANULATION PRESENT
[2018-07-06] MEDS: Fluticasone-Vilanterol 200/25mcg Diskus INH SCH (09:00)
[2018-07-06] MEDS: Tiotropium 18 mcg Cap For Inhalation INH SCH (09:00)
[2018-07-06] MEDS: Budesonide 0.25 mg/2 ml Inhal Susp UD IH SCH ×2 (09:00→21:25)
[2018-07-06] MEDS: MethylPREDNISolone 40 mg Vial IVP SCH (09:10)
[2018-07-06] MEDS: BROMFENAC 0.07% OD SCH (09:10)
--- NOTE | 2018-07-06 09:50 | CP.PCM.PN ---
Subjective - Date & Time of Evaluation Date of Evaluation: 07/06/18 Time of Evaluation: 09:47 - Subjective Subjective: Notes reviewed SOB this am - receiving breathing treatment COmfortable overall No bleeding currently NO pain No n/v 10 point ros negative other than above and anxiety, cough, and generalized weakness Objective - Vital Signs/Intake and Output Vital Signs (last 24 hours): Temp Pulse Resp BP Pulse Ox 98.3 F 114 H 20 111/64 98 07/06/18 09:18 07/06/18 09:18 07/06/18 09:18 07/06/18 09:18 07/06/18 09:18 - Medications Medications: Current Medications Acetaminophen (Tylenol 325mg Tab) 650 mg PO Q6 PRN PRN Reason: Fever >100.4 F Last Admin: 06/26/18 18:19 Dose: 650 mg Apixaban (Eliquis) 2.5 mg PO Q48H [facility] Last Admin: 07/05/18 21:30 Dose: Not Given Budesonide (Pulmicort Respules) 1 mg IH RBID [facility] Last Admin: 07/05/18 21:26 Dose: 1 mg Calcium Acetate (Phoslo) 1,334 mg PO TID [facility] Last Admin: 07/06/18 09:10 Dose: 1,334 mg Diltiazem HCl (Cardizem Cd) 240 mg PO DAILY [facility] Last Admin: 07/06/18 08:45 Dose: 240 mg Epoetin Eddie (Procrit) 10,000 unit IV MWF [facility] Last Admin: 07/05/18 20:28 Dose: 10,000 unit Famotidine (Pepcid) 20 mg PO DAILY [facility] Last Admin: 07/06/18 09:10 Dose: 20 mg Fluticasone/Vilanterol (Breo Ellipta 200-25 Mcg Inh) 1 puff INH RQD [facility] Last Admin: 07/05/18 11:22 Dose: 1 puff Glipizide (Glucotrol) 10 mg PO ACBD [facility] Last Admin: 07/06/18 08:15 Dose: 10 mg Guaifenesin/Dextromethorphan (Robitussin Dm) 10 ml PO Q4H PRN PRN Reason: Cough and congestion Last Admin: 07/04/18 16:59 Dose: 10 ml Home Med (Patient's Own Drops) 1 drop OD DAILY [facility] Last Admin: 07/06/18 09:10 Dose: 1 drop Cefepime HCl 1 gm/ Dextrose 50 mls @ 100 mls/hr IVPB Q24H [facility]; Protocol Last Admin: 07/05/18 21:46 Dose: 100 mls/hr Insulin Aspart (Novolog) 10 unit SC ONCE [facility] Insulin Aspart (Novolog) 0 unit SC ACHS [facility]; Protocol Last Admin: 07/06/18 08:15 Dose: 10 units Insulin Detemir (Levemir) 12 unit SC Q12H [facility] Last Admin: 07/05/18 23:00 Dose: Not Given Levothyroxine Sodium (Synthroid) 150 mcg PO DAILY@0630 [facility] Last Admin: 07/06/18 05:59 Dose: 150 mcg Methylprednisolone (Solu-Medrol) 40 mg IVP Q12 [facility] Last Admin: 07/06/18 09:10 Dose: 40 mg Promethazine HCl/Codeine (Phenergan/Codeine Oral Syrup) 10 ml PO Q8H PRN PRN Reason: Cough Last Admin: 07/05/18 23:56 Dose: 10 ml Rosuvastatin Calcium (Crestor) 5 mg PO HS [facility] Last Admin: 07/05/18 21:36 Dose: 5 mg Tiotropium [place] (Spiriva) 18 mcg INH RQ24 [facility] Last Admin: 07/05/18 11:22 Dose: Not Given - Labs Labs: 07/06/18 06:26 07/05/18 07:21 - Constitutional Appears: Non-toxic, Chronically Ill - Head Exam Head Exam: ATRAUMATIC, NORMOCEPHALIC - Eye Exam Eye Exam: EOMI, Normal appearance - ENT Exam ENT Exam: Mucous Membranes Moist, Normal Oropharynx - Respiratory Exam Respiratory Exam: Rhonchi, Wheezes. absent: Rales - Cardiovascular Exam Cardiovascular Exam: +S1, +S2. absent: JVD - GI/Abdominal Exam GI & Abdominal Exam: Soft, Normal Bowel Sounds - Extremities Exam Extremities Exam: absent: Joint Swelling, Pedal Edema - Neurological Exam Neurological Exam: Alert, Awake Assessment and Plan (1) ESRD (end stage renal disease) on dialysis Status: Acute (2) Atrial fibrillation with RVR Status: Resolved (3) Acute bronchitis Status: Acute (4) Anemia Status: Acute - Assessment and Plan (Free Text) Assessment: Tolerating dialysis well Maintain schedule Transfuse prbc per primary team Monitor bp Respiratory care as ordered Abx Volume status acceptable
[2018-07-06] MEDS: Insulin Detemir 100 units/ml Vial (Levemir) SC SCH ×2 (11:00→23:00)
--- NOTE | 2018-07-06 15:41 | CP.PCM.PN ---
Subjective - Date & Time of Evaluation Date of Evaluation: 07/06/18 Time of Evaluation: 10:20 - Subjective Subjective: pt seen and examined at bedside no acute overnight events ongoing resp treatment sob still but better no chest pain or n/v/d. no abdominal pain HD per renal ongoing Objective - Vital Signs/Intake and Output Vital Signs (last 24 hours): Temp Pulse Resp BP Pulse Ox 98.3 F 86 20 111/64 98 07/06/18 09:18 07/06/18 11:30 07/06/18 09:18 07/06/18 09:18 07/06/18 09:18 Intake and Output: 07/06/18 07/06/18 06:59 18:59 Intake Total 200 Balance 200 - Medications Medications: Current Medications Acetaminophen (Tylenol 325mg Tab) 650 mg PO Q6 PRN PRN Reason: Fever >100.4 F Last Admin: 06/26/18 18:19 Dose: 650 mg Apixaban (Eliquis) 2.5 mg PO Q48H [facility] Last Admin: 07/05/18 21:30 Dose: Not Given Budesonide (Pulmicort Respules) 1 mg IH RBID [facility] Last Admin: 07/06/18 09:00 Dose: 1 mg Calcium Acetate (Phoslo) 1,334 mg PO TID [facility] Last Admin: 07/06/18 13:02 Dose: 1,334 mg Diltiazem HCl (Cardizem Cd) 240 mg PO DAILY [facility] Last Admin: 07/06/18 08:45 Dose: 240 mg Epoetin Eddie (Procrit) 10,000 unit IV MWF [facility] Last Admin: 07/05/18 20:28 Dose: 10,000 unit Famotidine (Pepcid) 20 mg PO DAILY [facility] Last Admin: 07/06/18 09:10 Dose: 20 mg Fluticasone/Vilanterol (Breo Ellipta 200-25 Mcg Inh) 1 puff INH RQD [facility] Last Admin: 07/06/18 09:00 Dose: 1 puff Glipizide (Glucotrol) 10 mg PO ACBD [facility] Last Admin: 07/06/18 08:15 Dose: 10 mg Guaifenesin/Dextromethorphan (Robitussin Dm) 10 ml PO Q4H PRN PRN Reason: Cough and congestion Last Admin: 07/04/18 16:59 Dose: 10 ml Home Med (Patient's Own Drops) 1 drop OD DAILY [facility] Last Admin: 07/06/18 09:10 Dose: 1 drop Cefepime HCl 1 gm/ Dextrose 50 mls @ 100 mls/hr IVPB Q24H [facility]; Protocol Last Admin: 07/05/18 21:46 Dose: 100 mls/hr Insulin Aspart (Novolog) 10 unit SC ONCE [facility] Insulin Aspart (Novolog) 0 unit SC ACHS [facility]; Protocol Last Admin: 07/06/18 11:53 Dose: 10 units Insulin Detemir (Levemir) 12 unit SC Q12H [facility] Last Admin: 07/06/18 11:00 Dose: 12 units Levothyroxine Sodium (Synthroid) 150 mcg PO DAILY@0630 [facility] Last Admin: 07/06/18 05:59 Dose: 150 mcg Prednisone (Prednisone Tab) 10 mg PO DAILY [facility] Stop: 07/09/18 10:00 Promethazine HCl/Codeine (Phenergan/Codeine Oral Syrup) 10 ml PO Q8H PRN PRN Reason: Cough Last Admin: 07/05/18 23:56 Dose: 10 ml Rosuvastatin Calcium (Crestor) 5 mg PO HS [facility] Last Admin: 07/05/18 21:36 Dose: 5 mg Tiotropium [place] (Spiriva) 18 mcg INH RQ24 [facility] Last Admin: 07/06/18 09:00 Dose: 18 mcg - Labs Labs: 07/06/18 06:26 07/05/18 07:21 - Constitutional Appears: Well - Head Exam Head Exam: ATRAUMATIC, NORMAL INSPECTION, NORMOCEPHALIC - Eye Exam Eye Exam: EOMI, Normal appearance, PERRL Pupil Exam: NORMAL ACCOMODATION, PERRL - ENT Exam ENT Exam: Mucous Membranes Moist, Normal Exam - Neck Exam Neck Exam: Full ROM, Normal Inspection. absent: Lymphadenopathy - Respiratory Exam Respiratory Exam: Decreased Breath Sounds - Cardiovascular Exam Cardiovascular Exam: REGULAR RHYTHM, +S1, +S2 - GI/Abdominal Exam GI & Abdominal Exam: Soft, Diminished Bowel Sounds - Rectal Exam Rectal Exam: Deferred Assessment and Plan (1) CHF exacerbation Status: Acute (2) Dyspnea Status: Acute (3) ESRD (end stage renal disease) on dialysis Status: Acute (4) Uncontrolled diabetes mellitus Status: Acute (5) MARIA EUGENIA (acute kidney injury) Status: Acute (6) Abdominal pain Status: Acute (7) Acute bronchitis Status: Acute (8) Acute kidney injury Status: Acute (9) Acute kidney injury superimposed on chronic kidney disease Status: Acute (10) Acute respiratory failure Status: Acute (11) Anemia Status: Acute (12) Anemia of chronic disease Status: Acute (13) Atrial fibrillation with controlled ventricular response Status: Acute (14) Back pain of thoracolumbar region Status: Acute (15) Bronchitis Status: Acute (16) Bronchitis Status: Acute (17) CHF (congestive heart failure) Status: Acute (18) CHF (congestive heart failure) Status: Acute (19) CKD (chronic kidney disease) stage 3, GFR 30-59 ml/min Status: Acute (20) COPD (chronic obstructive pulmonary disease) Status: Acute (21) COPD exacerbation Status: Acute (22) COPD exacerbation Status: Acute (23) Chest pain Status: Acute (24) ESR raised Status: Acute (25) ESRD (end stage renal disease) Status: Acute (26) Fluid overload Status: Acute (27) Fluid overload, unspecified Status: Acute (28) Gastritis Status: Acute (29) Hepatitis Status: Acute (30) History of asthma Status: Acute (31) History of atrial fibrillation Status: Acute (32) History of back pain Status: Acute (33) History of gastroesophageal reflux (GERD) Status: Acute (34) Hypercalcemia Status: Acute (35) Hyperlipemia Status: Acute (36) Influenza Status: Acute (37) Leucocytosis Status: Acute (38) Lower extremity pain Status: Acute (39) Multiple myeloma Status: Acute (40) Multiple myeloma Status: Acute (41) Myeloma Status: Acute (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 (43) Occult gastrointestinal hemorrhage Status: Acute (44) Paroxysmal A-fib Status: Acute (45) Pneumonia Status: Acute (46) Prophylactic measure Status: Acute (47) Pulmonary hypertension Status: Acute (48) Pulmonary hypertension Status: Acute (49) Renal failure Status: Acute (50) Respiratory tract infection Status: Acute (51) Streptococcus pneumoniae Status: Acute (52) Symptomatic anemia Status: Acute (53) Vertigo Status: Acute (54) Worsening renal function Status: Acute (55) Anemia Status: Chronic (56) Asthma Status: Chronic (57) Atrial fibrillation Status: Chronic (58) Chronic diastolic (congestive) heart failure Status: Chronic (59) Diabetes Status: Chronic (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
--- NOTE | 2018-07-06 16:36 | CP.PCM.PN ---
Subjective - Date & Time of Evaluation Date of Evaluation: 07/05/18 Time of Evaluation: 09:00 - Subjective Subjective: comfortable at rest IV rx renewed Objective - Vital Signs/Intake and Output Vital Signs (last 24 hours): Temp Pulse Resp BP Pulse Ox 97.7 F 78 18 122/63 97 07/05/18 17:30 07/05/18 17:30 07/05/18 17:30 07/05/18 19:00 07/05/18 17:30 - Medications Medications: Current Medications Acetaminophen (Tylenol 325mg Tab) 650 mg PO Q6 PRN PRN Reason: Fever >100.4 F Last Admin: 06/26/18 18:19 Dose: 650 mg Apixaban (Eliquis) 2.5 mg PO Q48H [facility] Budesonide (Pulmicort Respules) 1 mg IH RBID [facility] Last Admin: 07/05/18 11:22 Dose: 0.25 mg Calcium Acetate (Phoslo) 1,334 mg PO TID [facility] Last Admin: 07/05/18 13:11 Dose: 1,334 mg Diltiazem HCl (Cardizem Cd) 240 mg PO DAILY [facility] Last Admin: 07/05/18 10:39 Dose: 240 mg Epoetin Eddie (Procrit) 10,000 unit IV MWF [facility] Last Admin: 07/03/18 10:11 Dose: 10,000 unit Famotidine (Pepcid) 20 mg PO DAILY [facility] Last Admin: 07/05/18 10:39 Dose: 20 mg Fluticasone/Vilanterol (Breo Ellipta 200-25 Mcg Inh) 1 puff INH RQD [facility] Last Admin: 07/05/18 11:22 Dose: 1 puff Glipizide (Glucotrol) 10 mg PO ACBD [facility] Last Admin: 07/05/18 08:08 Dose: 10 mg Guaifenesin/Dextromethorphan (Robitussin Dm) 10 ml PO Q4H PRN PRN Reason: Cough and congestion Last Admin: 07/04/18 16:59 Dose: 10 ml Home Med (Patient's Own Drops) 1 drop OD DAILY [facility] Last Admin: 07/05/18 10:38 Dose: 1 drop Cefepime HCl 1 gm/ Dextrose 50 mls @ 100 mls/hr IVPB Q24H [facility]; Protocol Last Admin: 07/04/18 20:00 Dose: 100 mls/hr Insulin Aspart (Novolog) 10 unit SC ONCE [facility] Insulin Aspart (Novolog) 0 unit SC ACHS [facility]; Protocol Last Admin: 07/05/18 12:22 Dose: 6 units Insulin Detemir (Levemir) 12 unit SC Q12H [facility] Last Admin: 07/05/18 10:40 Dose: 12 units Levothyroxine Sodium (Synthroid) 150 mcg PO DAILY@0630 [facility] Last Admin: 07/05/18 06:09 Dose: 150 mcg Methylprednisolone (Solu-Medrol) 40 mg IVP Q12 [facility] Last Admin: 07/05/18 10:40 Dose: 40 mg Promethazine HCl/Codeine (Phenergan/Codeine Oral Syrup) 10 ml PO Q8H PRN PRN Reason: Cough Last Admin: 07/03/18 04:28 Dose: 10 ml Rosuvastatin Calcium (Crestor) 5 mg PO HS [facility] Last Admin: 07/04/18 21:47 Dose: 5 mg Tiotropium [place] (Spiriva) 18 mcg INH RQ24 [facility] Last Admin: 07/05/18 11:22 Dose: Not Given - Labs Labs: 07/05/18 07:21 07/05/18 07:21 - Constitutional Appears: Well - Head Exam Head Exam: ATRAUMATIC, NORMAL INSPECTION, NORMOCEPHALIC - Eye Exam Eye Exam: EOMI, Normal appearance, PERRL Pupil Exam: NORMAL ACCOMODATION, PERRL - ENT Exam ENT Exam: Mucous Membranes Moist, Normal Exam - Neck Exam Neck Exam: Full ROM, Normal Inspection. absent: Lymphadenopathy - Respiratory Exam Respiratory Exam: Clear to Ausculation Bilateral, NORMAL BREATHING PATTERN - Cardiovascular Exam Cardiovascular Exam: REGULAR RHYTHM, +S1, +S2. absent: Murmur - GI/Abdominal Exam GI & Abdominal Exam: Soft, Normal Bowel Sounds. absent: Tenderness - Rectal Exam Rectal Exam: Deferred - Exam Exam: NORMAL INSPECTION - Extremities Exam Extremities Exam: Full ROM, Normal Capillary Refill, Normal Inspection. absent: Joint Swelling, Pedal Edema - Back Exam Back Exam: NORMAL INSPECTION - Neurological Exam Neurological Exam: Alert, Awake, CN II-XII Intact, Normal Gait, Oriented x3 - Psychiatric Exam Psychiatric exam: Normal Affect, Normal Mood - Skin Skin Exam: Dry, Intact, Normal Color, Warm Assessment and Plan (1) CHF exacerbation Status: Acute (2) Chronic a-fib Status: Acute (3) Dyspnea Status: Acute (4) ESRD (end stage renal disease) on dialysis Status: Acute (5) Uncontrolled diabetes mellitus Status: Acute - Assessment and Plan (Free Text) Assessment: cont iv rx antibiotic renewed
--- NOTE | 2018-07-06 16:53 | CP.PCM.PN ---
Objective - Vital Signs/Intake and Output Vital Signs (last 24 hours): Temp Pulse Resp BP Pulse Ox 98.3 F 86 20 111/64 98 07/06/18 09:18 07/06/18 11:30 07/06/18 09:18 07/06/18 09:18 07/06/18 09:18 Intake and Output: 07/06/18 07/06/18 06:59 18:59 Intake Total 200 Balance 200 - Medications Medications: Current Medications Acetaminophen (Tylenol 325mg Tab) 650 mg PO Q6 PRN PRN Reason: Fever >100.4 F Last Admin: 06/26/18 18:19 Dose: 650 mg Apixaban (Eliquis) 2.5 mg PO Q48H [facility] Last Admin: 07/05/18 21:30 Dose: Not Given Budesonide (Pulmicort Respules) 1 mg IH RBID [facility] Last Admin: 07/06/18 09:00 Dose: 1 mg Calcium Acetate (Phoslo) 1,334 mg PO TID [facility] Last Admin: 07/06/18 13:02 Dose: 1,334 mg Diltiazem HCl (Cardizem Cd) 240 mg PO DAILY [facility] Last Admin: 07/06/18 08:45 Dose: 240 mg Epoetin Eddie (Procrit) 10,000 unit IV MWF [facility] Last Admin: 07/05/18 20:28 Dose: 10,000 unit Famotidine (Pepcid) 20 mg PO DAILY [facility] Last Admin: 07/06/18 09:10 Dose: 20 mg Fluticasone/Vilanterol (Breo Ellipta 200-25 Mcg Inh) 1 puff INH RQD [facility] Last Admin: 07/06/18 09:00 Dose: 1 puff Glipizide (Glucotrol) 10 mg PO ACBD [facility] Last Admin: 07/06/18 08:15 Dose: 10 mg Guaifenesin/Dextromethorphan (Robitussin Dm) 10 ml PO Q4H PRN PRN Reason: Cough and congestion Last Admin: 07/04/18 16:59 Dose: 10 ml Home Med (Patient's Own Drops) 1 drop OD DAILY [facility] Last Admin: 07/06/18 09:10 Dose: 1 drop Cefepime HCl 1 gm/ Dextrose 50 mls @ 100 mls/hr IVPB Q24H [facility]; Protocol Last Admin: 07/05/18 21:46 Dose: 100 mls/hr Insulin Aspart (Novolog) 10 unit SC ONCE [facility] Insulin Aspart (Novolog) 0 unit SC ACHS [facility]; Protocol Last Admin: 07/06/18 11:53 Dose: 10 units Insulin Detemir (Levemir) 12 unit SC Q12H [facility] Last Admin: 07/06/18 11:00 Dose: 12 units Levothyroxine Sodium (Synthroid) 150 mcg PO DAILY@0630 [facility] Last Admin: 07/06/18 05:59 Dose: 150 mcg Prednisone (Prednisone Tab) 10 mg PO DAILY [facility] Stop: 07/09/18 10:00 Promethazine HCl/Codeine (Phenergan/Codeine Oral Syrup) 10 ml PO Q8H PRN PRN Reason: Cough Last Admin: 07/05/18 23:56 Dose: 10 ml Rosuvastatin Calcium (Crestor) 5 mg PO HS [facility] Last Admin: 07/05/18 21:36 Dose: 5 mg Tiotropium [place] (Spiriva) 18 mcg INH RQ24 [facility] Last Admin: 07/06/18 09:00 Dose: 18 mcg - Labs Labs: 07/06/18 06:26 07/05/18 07:21 Assessment and Plan (1) CHF exacerbation Status: Acute (2) Dyspnea Status: Acute (3) Atrial fibrillation with RVR Status: Resolved (4) COPD (chronic obstructive pulmonary disease) Status: Acute (5) ESRD (end stage renal disease) Status: Acute
[2018-07-06] MEDS: Promethazine/Cod 6.25mg-10mg/5ml Syr UD PO PRN (17:54)
[2018-07-07] MEDS: Levothyroxine 150 MCG TAB PO SCH (06:05)
[2018-07-07] MEDS: (Novolog) Insulin Aspart, Recombinant 100 u/ml 10 ml vial SC SCH ×5 (07:48→21:50)
[2018-07-07] MEDS: Fluticasone-Vilanterol 200/25mcg Diskus INH SCH (09:24)
[2018-07-07] MEDS: Tiotropium 18 mcg Cap For Inhalation INH SCH (09:24)
[2018-07-07] MEDS: Budesonide 0.25 mg/2 ml Inhal Susp UD IH SCH ×2 (09:24→19:46)
[2018-07-07] MEDS: diltiaZEM 240 mg/24 Hours CD Cap PO SCH (09:35)
[2018-07-07] MEDS: BROMFENAC 0.07% OD SCH (09:35)
[2018-07-07] MEDS: Promethazine/Cod 6.25mg-10mg/5ml Syr UD PO PRN (11:56)
[2018-07-07] MEDS: Insulin Detemir 100 units/ml Vial (Levemir) SC SCH ×2 (11:56→23:58)
--- NOTE | 2018-07-07 15:45 | CP.PCM.PN ---
Subjective - Date & Time of Evaluation Date of Evaluation: 07/07/18 Time of Evaluation: 08:00 - Subjective Subjective: seen on rounds ROS completed - more cough WBC increasing chart reviewed patient examined orders written antibiotics renewed Objective - Vital Signs/Intake and Output Vital Signs (last 24 hours): Temp Pulse Resp BP Pulse Ox 98.2 F 117 H 20 100/57 L 94 L 07/07/18 07:00 07/07/18 12:07 07/07/18 07:00 07/07/18 07:00 07/07/18 07:00 Intake and Output: 07/07/18 07/07/18 06:59 18:59 Intake Total 120 Balance 120 - Medications Medications: Current Medications Acetaminophen (Tylenol 325mg Tab) 650 mg PO Q6 PRN PRN Reason: Fever >100.4 F Last Admin: 06/26/18 18:19 Dose: 650 mg Alprazolam (Xanax) 0.25 mg PO BID PRN PRN Reason: Anxiety Stop: 07/13/18 18:40 Last Admin: 07/07/18 12:01 Dose: 0.25 mg Apixaban (Eliquis) 2.5 mg PO Q48H [facility]S [facility]CLUDE 234 BEDS AT [facility] Last Admin: 07/07/18 13:37 Dose: 2.5 mg Budesonide (Pulmicort Respules) 1 mg IH RBID COUNTS INCLUDE 234 BEDS AT THE [facility] Last Admin: 07/07/18 09:24 Dose: 1 mg Calcium Acetate (Phoslo) 1,334 mg PO TID [facility]S INCLUDE 234 BEDS AT THE [facility] Last Admin: 07/07/18 13:37 Dose: 1,334 mg Diltiazem HCl (Cardizem Cd) 240 mg PO DAILY [facility]S [facility]CLUDE 234 BEDS AT [facility] Last Admin: 07/07/18 09:35 Dose: 240 mg Epoetin Eddie (Procrit) 10,000 unit IV MWF [facility]S [facility]CLUDE 234 BEDS AT [facility] Last Admin: 07/05/18 20:28 Dose: 10,000 unit Famotidine (Pepcid) 20 mg PO DAILY [facility]S INCLUDE 234 BEDS AT [facility] Last Admin: 07/07/18 09:35 Dose: 20 mg Fluticasone/Vilanterol (Breo Ellipta 200-25 Mcg Inh) 1 puff INH RQD [facility]S [facility]CLUDE 234 BEDS AT [facility] Last Admin: 07/07/18 09:24 Dose: 1 puff Glipizide (Glucotrol) 10 mg PO ACBD [facility]S INCLUDE 234 BEDS AT [facility] Last Admin: 07/07/18 08:00 Dose: 10 mg Guaifenesin/Dextromethorphan (Robitussin Dm) 10 ml PO Q4H PRN PRN Reason: Cough and congestion Last Admin: 07/04/18 16:59 Dose: 10 ml Home Med (Patient's Own Drops) 1 drop OD DAILY [facility]CLUDE 234 BEDS AT [facility] Last Admin: 07/07/18 09:35 Dose: 1 drop Cefepime HCl 1 gm/ Dextrose 50 mls @ 100 mls/hr IVPB Q24H [facility]S INCLUDE 234 BEDS AT THE [facility]; Protocol Last Admin: 07/06/18 21:33 Dose: 100 mls/hr Insulin Aspart (Novolog) 10 unit SC ONCE [facility] Insulin Aspart (Novolog) 0 unit SC ACHS [facility]S [facility]CLUDE 234 BEDS AT [facility]; Protocol Last Admin: 07/07/18 11:56 Dose: 12 units Insulin Detemir (Levemir) 12 unit SC Q12H [facility]S [facility]CLUDE 234 BEDS AT [facility] Last Admin: 07/07/18 11:56 Dose: 12 units Levothyroxine Sodium (Synthroid) 150 mcg PO DAILY@0630 [facility]S [facility]CLUDE 234 BEDS AT [facility] Last Admin: 07/07/18 06:05 Dose: 150 mcg Prednisone (Prednisone Tab) 10 mg PO DAILY [facility]S INCLUDE 234 BEDS AT [facility] Stop: 07/09/18 10:00 Last Admin: 07/07/18 09:35 Dose: 10 mg Promethazine HCl/Codeine (Phenergan/Codeine Oral Syrup) 10 ml PO Q8H PRN PRN Reason: Cough Last Admin: 07/07/18 11:56 Dose: 10 ml Rosuvastatin Calcium (Crestor) 5 mg PO HS [facility]S [facility]CLUDE 234 BEDS AT [facility] Last Admin: 07/06/18 21:33 Dose: 5 mg Tiotropium [place] (Spiriva) 18 mcg INH RQ24 [facility]CLUDE 234 BEDS AT [facility] Last Admin: 07/07/18 09:24 Dose: 18 mcg - Labs Labs: 07/06/18 06:26 07/05/18 07:21 - Constitutional Appears: Cachectic, Chronically Ill - Head Exam Head Exam: NORMOCEPHALIC - Eye Exam Eye Exam: absent: Scleral icterus - ENT Exam ENT Exam: Mucous Membranes Dry - Neck Exam Neck Exam: Normal Inspection - Respiratory Exam Respiratory Exam: Decreased Breath Sounds, Prolonged Expiratory Phase, Rales, Rhonchi - Cardiovascular Exam Cardiovascular Exam: REGULAR RHYTHM - GI/Abdominal Exam GI & Abdominal Exam: Distended - Rectal Exam Rectal Exam: Deferred - Exam Exam: NORMAL INSPECTION - Extremities Exam Extremities Exam: absent: Pedal Edema - Back Exam Back Exam: absent: CVA tenderness (L), CVA tenderness (R) - Neurological Exam Neurological Exam: Alert, Awake, CN II-XII Intact, Oriented x3 - Psychiatric Exam Psychiatric exam: Depressed - Skin Skin Exam: Dry Assessment and Plan (1) CHF exacerbation Status: Acute (2) Chronic a-fib Status: Acute (3) Dyspnea Status: Acute (4) ESRD (end stage renal disease) on dialysis Status: Acute (5) Uncontrolled diabetes mellitus Status: Acute - Assessment and Plan (Free Text) Assessment: will repeat cxr reorder IV antibiotics
[2018-07-07] MEDS ORDERED: Vancomycin 1 gm/NS 200 ml 1 GM/200 ML BAG IVPB STA (15:47)
--- NOTE | 2018-07-07 15:47 | CP.PCM.PN ---
Subjective - Date & Time of Evaluation Date of Evaluation: 07/07/18 Time of Evaluation: 10:35 - Subjective Subjective: pt seen and examined at bedside no acute distress iv rx in progress resp stable , sob still but improving tolerating HD per schedule no chest pain or n/v/d, abdominal pain Objective - Vital Signs/Intake and Output Vital Signs (last 24 hours): Temp Pulse Resp BP Pulse Ox 98.2 F 117 H 20 100/57 L 94 L 07/07/18 07:00 07/07/18 12:07 07/07/18 07:00 07/07/18 07:00 07/07/18 07:00 Intake and Output: 07/07/18 07/07/18 06:59 18:59 Intake Total 120 Balance 120 - Medications Medications: Current Medications Acetaminophen (Tylenol 325mg Tab) 650 mg PO Q6 PRN PRN Reason: Fever >100.4 F Last Admin: 06/26/18 18:19 Dose: 650 mg Alprazolam (Xanax) 0.25 mg PO BID PRN PRN Reason: Anxiety Stop: 07/13/18 18:40 Last Admin: 07/07/18 12:01 Dose: 0.25 mg Apixaban (Eliquis) 2.5 mg PO Q48H [facility] Last Admin: 07/07/18 13:37 Dose: 2.5 mg Budesonide (Pulmicort Respules) 1 mg IH RBID [facility] Last Admin: 07/07/18 09:24 Dose: 1 mg Calcium Acetate (Phoslo) 1,334 mg PO TID [facility] Last Admin: 07/07/18 13:37 Dose: 1,334 mg Diltiazem HCl (Cardizem Cd) 240 mg PO DAILY [facility] Last Admin: 07/07/18 09:35 Dose: 240 mg Epoetin Eddie (Procrit) 10,000 unit IV MWF [facility] Last Admin: 07/05/18 20:28 Dose: 10,000 unit Famotidine (Pepcid) 20 mg PO DAILY [facility] Last Admin: 07/07/18 09:35 Dose: 20 mg Fluticasone/Vilanterol (Breo Ellipta 200-25 Mcg Inh) 1 puff INH RQD [facility] Last Admin: 07/07/18 09:24 Dose: 1 puff Glipizide (Glucotrol) 10 mg PO ACBD [facility] Last Admin: 07/07/18 08:00 Dose: 10 mg Guaifenesin/Dextromethorphan (Robitussin Dm) 10 ml PO Q4H PRN PRN Reason: Cough and congestion Last Admin: 07/04/18 16:59 Dose: 10 ml Home Med (Patient's Own Drops) 1 drop OD DAILY [facility] Last Admin: 07/07/18 09:35 Dose: 1 drop Cefepime HCl 1 gm/ Dextrose 50 mls @ 100 mls/hr IVPB Q24H [facility]; Protocol Last Admin: 07/06/18 21:33 Dose: 100 mls/hr Vancomycin HCl 1 gm/ Sodium (Chloride) 250 mls @ 166.7 mls/hr IVPB STAT STA; Protocol Stop: 07/07/18 17:15 Insulin Aspart (Novolog) 10 unit SC ONCE [facility] Insulin Aspart (Novolog) 0 unit SC ACHS [facility]; Protocol Last Admin: 07/07/18 11:56 Dose: 12 units Insulin Detemir (Levemir) 12 unit SC Q12H [facility] Last Admin: 07/07/18 11:56 Dose: 12 units Levothyroxine Sodium (Synthroid) 150 mcg PO DAILY@0630 [facility] Last Admin: 07/07/18 06:05 Dose: 150 mcg Prednisone (Prednisone Tab) 10 mg PO DAILY [facility] Stop: 07/09/18 10:00 Last Admin: 07/07/18 09:35 Dose: 10 mg Promethazine HCl/Codeine (Phenergan/Codeine Oral Syrup) 10 ml PO Q8H PRN PRN Reason: Cough Last Admin: 07/07/18 11:56 Dose: 10 ml Rosuvastatin Calcium (Crestor) 5 mg PO HS [facility] Last Admin: 07/06/18 21:33 Dose: 5 mg Tiotropium [place] (Spiriva) 18 mcg INH RQ24 [facility] Last Admin: 07/07/18 09:24 Dose: 18 mcg - Labs Labs: 07/06/18 06:26 07/05/18 07:21 - Constitutional Appears: Well - Head Exam Head Exam: ATRAUMATIC, NORMAL INSPECTION, NORMOCEPHALIC - Eye Exam Eye Exam: EOMI, Normal appearance, PERRL Pupil Exam: NORMAL ACCOMODATION, PERRL - ENT Exam ENT Exam: Mucous Membranes Moist, Normal Exam - Neck Exam Neck Exam: Full ROM, Normal Inspection. absent: Lymphadenopathy - Respiratory Exam Respiratory Exam: Decreased Breath Sounds - Cardiovascular Exam Cardiovascular Exam: REGULAR RHYTHM, +S1, +S2 - GI/Abdominal Exam GI & Abdominal Exam: Soft, Diminished Bowel Sounds - Rectal Exam Rectal Exam: Deferred Assessment and Plan (1) CHF exacerbation Status: Acute (2) Dyspnea Status: Acute (3) ESRD (end stage renal disease) on dialysis Status: Acute (4) Uncontrolled diabetes mellitus Status: Acute (5) MARIA EUGENIA (acute kidney injury) Status: Acute (6) Abdominal pain Status: Acute (7) Acute bronchitis Status: Acute (8) Acute kidney injury Status: Acute (9) Acute kidney injury superimposed on chronic kidney disease Status: Acute (10) Acute respiratory failure Status: Acute (11) Anemia Status: Acute (12) Anemia of chronic disease Status: Acute (13) Atrial fibrillation with controlled ventricular response Status: Acute (14) Back pain of thoracolumbar region Status: Acute (15) Bronchitis Status: Acute (16) Bronchitis Status: Acute (17) CHF (congestive heart failure) Status: Acute (18) CHF (congestive heart failure) Status: Acute (19) CKD (chronic kidney disease) stage 3, GFR 30-59 ml/min Status: Acute (20) COPD (chronic obstructive pulmonary disease) Status: Acute (21) COPD exacerbation Status: Acute (22) COPD exacerbation Status: Acute (23) Chest pain Status: Acute (24) ESR raised Status: Acute (25) ESRD (end stage renal disease) Status: Acute (26) Fluid overload Status: Acute (27) Fluid overload, unspecified Status: Acute (28) Gastritis Status: Acute (29) Hepatitis Status: Acute (30) History of asthma Status: Acute (31) History of atrial fibrillation Status: Acute (32) History of back pain Status: Acute (33) History of gastroesophageal reflux (GERD) Status: Acute (34) Hypercalcemia Status: Acute (35) Hyperlipemia Status: Acute (36) Influenza Status: Acute (37) Leucocytosis Status: Acute (38) Lower extremity pain Status: Acute (39) Multiple myeloma Status: Acute (40) Multiple myeloma Status: Acute (41) Myeloma Status: Acute (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 (43) Occult gastrointestinal hemorrhage Status: Acute (44) Paroxysmal A-fib Status: Acute (45) Pneumonia Status: Acute (46) Prophylactic measure Status: Acute (47) Pulmonary hypertension Status: Acute (48) Pulmonary hypertension Status: Acute (49) Renal failure Status: Acute (50) Respiratory tract infection Status: Acute (51) Streptococcus pneumoniae Status: Acute (52) Symptomatic anemia Status: Acute (53) Vertigo Status: Acute (54) Worsening renal function Status: Acute (55) Anemia Status: Chronic (56) Asthma Status: Chronic (57) Atrial fibrillation Status: Chronic (58) Chronic diastolic (congestive) heart failure Status: Chronic (59) Diabetes Status: Chronic (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
--- NOTE | 2018-07-07 16:50 | CP.PCM.PN ---
Subjective - Date & Time of Evaluation Date of Evaluation: 07/07/18 Time of Evaluation: 16:50 Objective - Vital Signs/Intake and Output Vital Signs (last 24 hours): Temp Pulse Resp BP Pulse Ox 98.2 F 117 H 20 100/57 L 94 L 07/07/18 07:00 07/07/18 12:07 07/07/18 07:00 07/07/18 07:00 07/07/18 07:00 Intake and Output: 07/07/18 07/07/18 06:59 18:59 Intake Total 120 Balance 120 - Medications Medications: Current Medications Acetaminophen (Tylenol 325mg Tab) 650 mg PO Q6 PRN PRN Reason: Fever >100.4 F Last Admin: 06/26/18 18:19 Dose: 650 mg Alprazolam (Xanax) 0.25 mg PO BID PRN PRN Reason: Anxiety Stop: 07/13/18 18:40 Last Admin: 07/07/18 12:01 Dose: 0.25 mg Apixaban (Eliquis) 2.5 mg PO Q48H [facility] Last Admin: 07/07/18 13:37 Dose: 2.5 mg Budesonide (Pulmicort Respules) 1 mg IH RBID [facility] Last Admin: 07/07/18 09:24 Dose: 1 mg Calcium Acetate (Phoslo) 1,334 mg PO TID [facility] Last Admin: 07/07/18 13:37 Dose: 1,334 mg Diltiazem HCl (Cardizem Cd) 240 mg PO DAILY [facility] Last Admin: 07/07/18 09:35 Dose: 240 mg Epoetin Eddie (Procrit) 10,000 unit IV MWF [facility] Last Admin: 07/05/18 20:28 Dose: 10,000 unit Famotidine (Pepcid) 20 mg PO DAILY [facility] Last Admin: 07/07/18 09:35 Dose: 20 mg Fluticasone/Vilanterol (Breo Ellipta 200-25 Mcg Inh) 1 puff INH RQD [facility] Last Admin: 07/07/18 09:24 Dose: 1 puff Glipizide (Glucotrol) 10 mg PO ACBD [facility] Last Admin: 07/07/18 08:00 Dose: 10 mg Guaifenesin/Dextromethorphan (Robitussin Dm) 10 ml PO Q4H PRN PRN Reason: Cough and congestion Last Admin: 07/04/18 16:59 Dose: 10 ml Home Med (Patient's Own Drops) 1 drop OD DAILY [facility] Last Admin: 07/07/18 09:35 Dose: 1 drop Cefepime HCl 1 gm/ Dextrose 50 mls @ 100 mls/hr IVPB Q24H [facility]; Protocol Last Admin: 07/06/18 21:33 Dose: 100 mls/hr Vancomycin/Sodium Chloride (Vancomycin 1 Gm/Ns 200 Ml) 1 gm in 200 mls @ 166.7 mls/hr IVPB STAT STA; Protocol Stop: 07/07/18 16:58 Insulin Aspart (Novolog) 10 unit SC ONCE [facility] Insulin Aspart (Novolog) 0 unit SC ACHS [facility]; Protocol Last Admin: 07/07/18 11:56 Dose: 12 units Insulin Detemir (Levemir) 12 unit SC Q12H [facility] Last Admin: 07/07/18 11:56 Dose: 12 units Levothyroxine Sodium (Synthroid) 150 mcg PO DAILY@0630 [facility] Last Admin: 07/07/18 06:05 Dose: 150 mcg Prednisone (Prednisone Tab) 10 mg PO DAILY [facility] Stop: 07/09/18 10:00 Last Admin: 07/07/18 09:35 Dose: 10 mg Promethazine HCl/Codeine (Phenergan/Codeine Oral Syrup) 10 ml PO Q8H PRN PRN Reason: Cough Last Admin: 07/07/18 11:56 Dose: 10 ml Rosuvastatin Calcium (Crestor) 5 mg PO HS [facility] Last Admin: 07/06/18 21:33 Dose: 5 mg Tiotropium [place] (Spiriva) 18 mcg INH RQ24 [facility] Last Admin: 07/07/18 09:24 Dose: 18 mcg - Labs Labs: 07/06/18 06:26 07/05/18 07:21 Assessment and Plan (1) CHF exacerbation Status: Acute (2) Dyspnea Status: Acute (3) Atrial fibrillation with RVR Status: Resolved (4) COPD (chronic obstructive pulmonary disease) Status: Acute (5) ESRD (end stage renal disease) Status: Acute
--- NOTE | 2018-07-07 18:11 | RAD ---
Date of service: 07/07/2018 HISTORY: increased congestion COMPARISON: 06/26/2018. TECHNIQUE: 1 view obtained. FINDINGS: LUNGS: No active pulmonary disease. PLEURA: No significant pleural effusion identified, no pneumothorax apparent. CARDIOVASCULAR: There is atherosclerotic calcification of the thoracic aorta Normal cardiac size. Left central venous catheter extending to the region of the right atrium. OSSEOUS STRUCTURES: No significant abnormalities. VISUALIZED UPPER ABDOMEN: Normal. OTHER FINDINGS: None. IMPRESSION: No active disease.
[2018-07-08] MEDS: Levothyroxine 150 MCG TAB PO SCH (06:33)
[2018-07-08 08:14] LABS: HEMOGLOBIN 7.8 g/dL (11.0-16.0); LYMPH # 0.7 K/uL (1.0-4.3); LYMPH % 1.8 % (20.0-40.0); MEAN CELL VOLUME 88.2 fL (81.0-99.0); MEAN CORPUSCULAR HEMOGLOBIN 26.5 pg (27.0-31.0); MEAN CORPUSCULAR HGB CONC 30.1 g/dL (33.0-37.0); MEAN PLATELET VOLUME 11.1 fL (7.2-11.7); MONO # 1.1 K/uL (0.0-0.8); MONO % 2.6 % (0.0-10.0); NEUT # 40.2 K/uL (1.8-7.0); NEUT % 95.6 % (50.0-75.0); PLATELET COUNT 173 K/uL (130-400); RBC 2.96 Mil/uL (3.80-5.20); RED CELL DISTRIBUTION WIDTH 17.7 % (11.5-14.5)
[2018-07-08] MEDS: Budesonide 0.25 mg/2 ml Inhal Susp UD IH SCH ×2 (09:05→20:39)
[2018-07-08] MEDS: Tiotropium 18 mcg Cap For Inhalation INH SCH (09:06)
[2018-07-08] MEDS: Fluticasone-Vilanterol 200/25mcg Diskus INH SCH (09:06)
[2018-07-08] MEDS: (Novolog) Insulin Aspart, Recombinant 100 u/ml 10 ml vial SC SCH ×4 (09:36→21:47)
[2018-07-08 10:29] LABS: ANISOCYTOSIS SLIGHT; BANDS 1 % (0-2); LYMPHOCYTE 1 % (20-40); MONOCYTE 3 % (0-10); NEUTROPHIL 95 % (50-75); PLATELET ESTIMATE NORMAL (NORMAL); TOTAL CELLS COUNTED 100
[2018-07-08 10:30] LABS: HYPOCHROMIC SLIGHT
[2018-07-08 10:31] LABS: OVALOCYTES SLIGHT
[2018-07-08] MEDS: Insulin Detemir 100 units/ml Vial (Levemir) SC SCH ×2 (10:33→22:12)
[2018-07-08] MEDS: diltiaZEM 240 mg/24 Hours CD Cap PO SCH (10:35)
[2018-07-08] MEDS: Promethazine/Cod 6.25mg-10mg/5ml Syr UD PO PRN (10:36)
[2018-07-08] MEDS: BROMFENAC 0.07% OD SCH (10:36)
--- NOTE | 2018-07-08 12:11 | CP.PCM.PN ---
Subjective - Date & Time of Evaluation Date of Evaluation: 07/08/18 Time of Evaluation: 12:07 - Subjective Subjective: More tachy now- had received respiratory treatments Hg lower- for blood transfusion at dialysis Dialysis scheduled later today still with cough- better overall no more epistaxis noted better appetite Objective - Vital Signs/Intake and Output Vital Signs (last 24 hours): Temp Pulse Resp BP Pulse Ox 97.7 F 117 H 20 153/116 H 96 07/08/18 07:00 07/08/18 08:04 07/08/18 07:00 07/08/18 07:00 07/08/18 07:00 Intake and Output: 07/08/18 07/08/18 06:59 18:59 Intake Total 100 Balance 100 - Medications Medications: Current Medications Acetaminophen (Tylenol 325mg Tab) 650 mg PO Q6 PRN PRN Reason: Fever >100.4 F Last Admin: 06/26/18 18:19 Dose: 650 mg Alprazolam (Xanax) 0.25 mg PO BID PRN PRN Reason: Anxiety Stop: 07/13/18 18:40 Last Admin: 07/08/18 10:35 Dose: 0.25 mg Apixaban (Eliquis) 2.5 mg PO Q48H [facility] Last Admin: 07/07/18 13:37 Dose: 2.5 mg Budesonide (Pulmicort Respules) 0.25 mg IH RBID [facility] Last Admin: 07/08/18 09:05 Dose: 0.25 mg Calcium Acetate (Phoslo) 1,334 mg PO TID [facility] Last Admin: 07/08/18 10:35 Dose: 1,334 mg Diltiazem HCl (Cardizem Cd) 240 mg PO DAILY [facility] Last Admin: 07/08/18 10:35 Dose: 240 mg Epoetin Eddie (Procrit) 10,000 unit IV MWF [facility] Last Admin: 07/05/18 20:28 Dose: 10,000 unit Famotidine (Pepcid) 20 mg PO DAILY [facility] Last Admin: 07/08/18 10:35 Dose: 20 mg Fluticasone/Vilanterol (Breo Ellipta 200-25 Mcg Inh) 1 puff INH RQD [facility] Last Admin: 07/08/18 09:06 Dose: 1 puff Glipizide (Glucotrol) 10 mg PO ACBD [facility] Last Admin: 07/08/18 08:30 Dose: 10 mg Guaifenesin/Dextromethorphan (Robitussin Dm) 10 ml PO Q4H PRN PRN Reason: Cough and congestion Last Admin: 07/04/18 16:59 Dose: 10 ml Home Med (Patient's Own Drops) 1 drop OD DAILY [facility] Last Admin: 07/08/18 10:36 Dose: 1 drop Insulin Aspart (Novolog) 10 unit SC ONCE [facility] Insulin Aspart (Novolog) 0 unit SC ACHS [facility]; Protocol Last Admin: 07/08/18 09:36 Dose: Not Given Insulin Detemir (Levemir) 12 unit SC Q12H [facility] Last Admin: 07/08/18 10:33 Dose: 12 units Levothyroxine Sodium (Synthroid) 150 mcg PO DAILY@0630 [facility] Last Admin: 07/08/18 06:33 Dose: 150 mcg Prednisone (Prednisone Tab) 10 mg PO DAILY [facility] Stop: 07/09/18 10:00 Last Admin: 07/08/18 10:36 Dose: 10 mg Promethazine HCl/Codeine (Phenergan/Codeine Oral Syrup) 10 ml PO Q8H PRN PRN Reason: Cough Last Admin: 07/08/18 10:36 Dose: 10 ml Rosuvastatin Calcium (Crestor) 5 mg PO HS [facility] Last Admin: 07/07/18 21:43 Dose: 5 mg Tiotropium [place] (Spiriva) 18 mcg INH RQ24 [facility] Last Admin: 07/08/18 09:06 Dose: 18 mcg - Labs Labs: 07/08/18 07:53 07/05/18 07:21 - Constitutional Appears: No Acute Distress, Chronically Ill - Head Exam Head Exam: ATRAUMATIC, NORMAL INSPECTION - Eye Exam Eye Exam: EOMI, Normal appearance - Neck Exam Neck Exam: Normal Inspection. absent: Tenderness - Respiratory Exam Respiratory Exam: Clear to Ausculation Bilateral, NORMAL BREATHING PATTERN - Cardiovascular Exam Cardiovascular Exam: Tachycardia, Irregular Rhythm - GI/Abdominal Exam GI & Abdominal Exam: Soft. absent: Tenderness - Extremities Exam Extremities Exam: Normal Inspection. absent: Tenderness - Neurological Exam Neurological Exam: Alert, CN II-XII Intact - Skin Skin Exam: Dry, Warm Assessment and Plan (1) Atrial fibrillation with RVR Status: Resolved (2) CHF exacerbation Status: Acute (3) COPD exacerbation Status: Acute (4) Multiple myeloma Status: Acute - Assessment and Plan (Free Text) Plan: dialysis today Adequate fluid removal lower dose anticoagulation monitor for bleeding blood transfusion today same respiratory treatments
[2018-07-08] MEDS: Epoetin Alfa 10,000 unit/ml Dialysis IV SCH (17:50)
--- NOTE | 2018-07-08 18:40 | CP.PCM.PN ---
Objective - Vital Signs/Intake and Output Vital Signs (last 24 hours): Temp Pulse Resp BP Pulse Ox 97.9 F 93 H 18 88/64 L 96 07/08/18 14:45 07/08/18 17:30 07/08/18 14:45 07/08/18 17:30 07/08/18 07:00 Intake and Output: 07/08/18 07/08/18 06:59 18:59 Intake Total 100 400 Balance 100 400 - Medications Medications: Current Medications Acetaminophen (Tylenol 325mg Tab) 650 mg PO Q6 PRN PRN Reason: Fever >100.4 F Last Admin: 06/26/18 18:19 Dose: 650 mg Alprazolam (Xanax) 0.25 mg PO BID PRN PRN Reason: Anxiety Stop: 07/13/18 18:40 Last Admin: 07/08/18 10:35 Dose: 0.25 mg Apixaban (Eliquis) 2.5 mg PO Q48H [facility] Last Admin: 07/07/18 13:37 Dose: 2.5 mg Budesonide (Pulmicort Respules) 0.25 mg IH RBID [facility] Last Admin: 07/08/18 09:05 Dose: 0.25 mg Calcium Acetate (Phoslo) 1,334 mg PO TIDCC [facility] Last Admin: 07/08/18 17:05 Dose: Not Given Diltiazem HCl (Cardizem Cd) 240 mg PO DAILY [facility] Last Admin: 07/08/18 10:35 Dose: 240 mg Epoetin Eddie (Procrit) 10,000 unit IV MWF [facility] Last Admin: 07/08/18 17:50 Dose: 10,000 unit Famotidine (Pepcid) 20 mg PO DAILY [facility] Last Admin: 07/08/18 10:35 Dose: 20 mg Fluticasone/Vilanterol (Breo Ellipta 200-25 Mcg Inh) 1 puff INH RQD [facility] Last Admin: 07/08/18 09:06 Dose: 1 puff Glipizide (Glucotrol) 10 mg PO ACBD [facility] Last Admin: 07/08/18 17:04 Dose: Not Given Guaifenesin/Dextromethorphan (Robitussin Dm) 10 ml PO Q4H PRN PRN Reason: Cough and congestion Last Admin: 03/21/19 16:59 Dose: 10 ml Home Med (Patient's Own Drops) 1 drop OD DAILY [facility] Last Admin: 07/08/18 10:36 Dose: 1 drop Insulin Aspart (Novolog) 10 unit SC ONCE [facility] Insulin Aspart (Novolog) 0 unit SC ACHS [facility]; Protocol Last Admin: 07/08/18 17:04 Dose: Not Given Insulin Detemir (Levemir) 12 unit SC Q12H [facility] Last Admin: 07/08/18 10:33 Dose: 12 units Levothyroxine Sodium (Synthroid) 150 mcg PO DAILY@0630 [facility] Last Admin: 07/08/18 06:33 Dose: 150 mcg Prednisone (Prednisone Tab) 10 mg PO DAILY [facility] Stop: 07/09/18 10:00 Last Admin: 07/08/18 10:36 Dose: 10 mg Promethazine HCl/Codeine (Phenergan/Codeine Oral Syrup) 10 ml PO Q8H PRN PRN Reason: Cough Last Admin: 07/08/18 10:36 Dose: 10 ml Rosuvastatin Calcium (Crestor) 5 mg PO HS [facility] Last Admin: 07/07/18 21:43 Dose: 5 mg Tiotropium [place] (Spiriva) 18 mcg INH RQ24 [facility] Last Admin: 07/08/18 09:06 Dose: 18 mcg - Labs Labs: 07/08/18 07:53 07/05/18 07:21 Assessment and Plan (1) CHF exacerbation Status: Acute (2) Dyspnea Status: Acute (3) Atrial fibrillation with RVR Status: Resolved (4) COPD (chronic obstructive pulmonary disease) Status: Acute (5) ESRD (end stage renal disease) Status: Acute
--- NOTE | 2018-07-08 20:01 | CP.PCM.PN ---
Subjective - Date & Time of Evaluation Date of Evaluation: 07/08/18 - Subjective Subjective: pt seen and examined at bedside no acute overnight events reported, NAD no nausea, no vomiting, no fever no chest pain little cough Objective - Vital Signs/Intake and Output Vital Signs (last 24 hours): Temp Pulse Resp BP Pulse Ox 97.9 F 96 H 18 94/66 L 96 07/08/18 14:45 07/08/18 18:00 07/08/18 14:45 07/08/18 18:00 07/08/18 07:00 Intake and Output: 07/08/18 07/09/18 18:59 06:59 Intake Total 400 Balance 400 - Medications Medications: Current Medications Acetaminophen (Tylenol 325mg Tab) 650 mg PO Q6 PRN PRN Reason: Fever >100.4 F Last Admin: 06/26/18 18:19 Dose: 650 mg Alprazolam (Xanax) 0.25 mg PO BID PRN PRN Reason: Anxiety Stop: 07/13/18 18:40 Last Admin: 07/08/18 10:35 Dose: 0.25 mg Apixaban (Eliquis) 2.5 mg PO Q48H [facility] Last Admin: 07/07/18 13:37 Dose: 2.5 mg Budesonide (Pulmicort Respules) 0.25 mg IH RBID [facility] Last Admin: 07/08/18 09:05 Dose: 0.25 mg Calcium Acetate (Phoslo) 1,334 mg PO TIDCC [facility] Last Admin: 07/08/18 17:05 Dose: Not Given Diltiazem HCl (Cardizem Cd) 240 mg PO DAILY [facility] Last Admin: 07/08/18 10:35 Dose: 240 mg Epoetin Eddie (Procrit) 10,000 unit IV MWF [facility] Last Admin: 07/08/18 17:50 Dose: 10,000 unit Famotidine (Pepcid) 20 mg PO DAILY [facility] Last Admin: 07/08/18 10:35 Dose: 20 mg Fluticasone/Vilanterol (Breo Ellipta 200-25 Mcg Inh) 1 puff INH RQD [facility] Last Admin: 07/08/18 09:06 Dose: 1 puff Glipizide (Glucotrol) 10 mg PO ACBD [facility] Last Admin: 07/08/18 17:04 Dose: Not Given Guaifenesin/Dextromethorphan (Robitussin Dm) 10 ml PO Q4H PRN PRN Reason: Cough and congestion Last Admin: 07/04/18 16:59 Dose: 10 ml Home Med (Patient's Own Drops) 1 drop OD DAILY [facility] Last Admin: 07/08/18 10:36 Dose: 1 drop Insulin Aspart (Novolog) 10 unit SC ONCE MARIBETH Insulin Aspart (Novolog) 0 unit SC ACHS [facility]; Protocol Last Admin: 07/08/18 17:04 Dose: Not Given Insulin Detemir (Levemir) 12 unit SC Q12H [facility] Last Admin: 07/08/18 10:33 Dose: 12 units Levothyroxine Sodium (Synthroid) 150 mcg PO DAILY@0630 [facility] Last Admin: 07/08/18 06:33 Dose: 150 mcg Prednisone (Prednisone Tab) 10 mg PO DAILY [facility] Stop: 07/09/18 10:00 Last Admin: 07/08/18 10:36 Dose: 10 mg Promethazine HCl/Codeine (Phenergan/Codeine Oral Syrup) 10 ml PO Q8H PRN PRN Reason: Cough Last Admin: 07/08/18 10:36 Dose: 10 ml Rosuvastatin Calcium (Crestor) 5 mg PO HS [facility] Last Admin: 07/07/18 21:43 Dose: 5 mg Tiotropium [place] (Spiriva) 18 mcg INH RQ24 [facility] Last Admin: 07/08/18 09:06 Dose: 18 mcg - Labs Labs: 07/08/18 07:53 07/05/18 07:21 - Constitutional Appears: Well - Head Exam Head Exam: ATRAUMATIC, NORMAL INSPECTION, NORMOCEPHALIC - Eye Exam Eye Exam: EOMI, Normal appearance, PERRL Pupil Exam: NORMAL ACCOMODATION, PERRL - ENT Exam ENT Exam: Mucous Membranes Moist, Normal Exam - Neck Exam Neck Exam: Full ROM, Normal Inspection. absent: Lymphadenopathy - Respiratory Exam Respiratory Exam: Decreased Breath Sounds - Cardiovascular Exam Cardiovascular Exam: REGULAR RHYTHM, +S1, +S2 - GI/Abdominal Exam GI & Abdominal Exam: Soft, Diminished Bowel Sounds - Rectal Exam Rectal Exam: Deferred Assessment and Plan (1) CHF exacerbation Status: Acute (2) Dyspnea Status: Acute (3) ESRD (end stage renal disease) on dialysis Status: Acute (4) Uncontrolled diabetes mellitus Status: Acute (5) MARIA EUGENIA (acute kidney injury) Status: Acute (6) Abdominal pain Status: Acute (7) Acute bronchitis Status: Acute (8) Acute kidney injury Status: Acute (9) Acute kidney injury superimposed on chronic kidney disease Status: Acute (10) Acute respiratory failure Status: Acute (11) Anemia Status: Acute (12) Anemia of chronic disease Status: Acute (13) Atrial fibrillation with controlled ventricular response Status: Acute (14) Back pain of thoracolumbar region Status: Acute (15) Bronchitis Status: Acute (16) Bronchitis Status: Acute (17) CHF (congestive heart failure) Status: Acute (18) CHF (congestive heart failure) Status: Acute (19) CKD (chronic kidney disease) stage 3, GFR 30-59 ml/min Status: Acute (20) COPD (chronic obstructive pulmonary disease) Status: Acute (21) COPD exacerbation Status: Acute (22) COPD exacerbation Status: Acute (23) Chest pain Status: Acute (24) ESR raised Status: Acute (25) ESRD (end stage renal disease) Status: Acute (26) Fluid overload Status: Acute (27) Fluid overload, unspecified Status: Acute (28) Gastritis Status: Acute (29) Hepatitis Status: Acute (30) History of asthma Status: Acute (31) History of atrial fibrillation Status: Acute (32) History of back pain Status: Acute (33) History of gastroesophageal reflux (GERD) Status: Acute (34) Hypercalcemia Status: Acute (35) Hyperlipemia Status: Acute (36) Influenza Status: Acute (37) Leucocytosis Status: Acute (38) Lower extremity pain Status: Acute (39) Multiple myeloma Status: Acute (40) Multiple myeloma Status: Acute (41) Myeloma Status: Acute (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 (43) Occult gastrointestinal hemorrhage Status: Acute (44) Paroxysmal A-fib Status: Acute (45) Pneumonia Status: Acute (46) Prophylactic measure Status: Acute (47) Pulmonary hypertension Status: Acute (48) Pulmonary hypertension Status: Acute (49) Renal failure Status: Acute (50) Respiratory tract infection Status: Acute (51) Streptococcus pneumoniae Status: Acute (52) Symptomatic anemia Status: Acute (53) Vertigo Status: Acute (54) Worsening renal function Status: Acute (55) Anemia Status: Chronic (56) Asthma Status: Chronic (57) Atrial fibrillation Status: Chronic (58) Chronic diastolic (congestive) heart failure Status: Chronic (59) Diabetes Status: Chronic (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
[2018-07-09] MEDS: Levothyroxine 150 MCG TAB PO SCH (05:45)
[2018-07-09 08:08] LABS: BASO % 0.1 % (0.0-2.0); HEMOGLOBIN 7.6 g/dL (11.0-16.0); LYMPH # 0.5 K/uL (1.0-4.3); LYMPH % 1.6 % (20.0-40.0); MEAN CELL VOLUME 87.1 fL (81.0-99.0); MEAN CORPUSCULAR HEMOGLOBIN 27.4 pg (27.0-31.0); MEAN CORPUSCULAR HGB CONC 31.5 g/dL (33.0-37.0); MEAN PLATELET VOLUME 10.9 fL (7.2-11.7); MONO # 0.7 K/uL (0.0-0.8); MONO % 2.3 % (0.0-10.0); NEUT # 30.4 K/uL (1.8-7.0); RBC 2.78 Mil/uL (3.80-5.20); RED CELL DISTRIBUTION WIDTH 17.4 % (11.5-14.5); WHITE BLOOD COUNT 31.7 K/uL (4.8-10.8)
[2018-07-09 08:18] LABS: PLATELET COUNT 108 K/uL (130-400)
[2018-07-09] MEDS: (Novolog) Insulin Aspart, Recombinant 100 u/ml 10 ml vial SC SCH ×4 (08:30→22:13)
[2018-07-09] MEDS: Fluticasone-Vilanterol 200/25mcg Diskus INH SCH (08:38)
[2018-07-09] MEDS: Budesonide 0.25 mg/2 ml Inhal Susp UD IH SCH (08:41)
[2018-07-09] MEDS: Tiotropium 18 mcg Cap For Inhalation INH SCH (08:41)
[2018-07-09 08:49] LABS: ANISOCYTOSIS SLIGHT; HYPOCHROMIC SLIGHT; LYMPHOCYTE 1 % (20-40); MONOCYTE 2 % (0-10); NEUTROPHIL 97 % (50-75); PLATELET ESTIMATE SLIGHTLY DECREASED (NORMAL); TOTAL CELLS COUNTED 100
[2018-07-09 08:50] LABS: GIANT PLATELETS PRESENT; LARGE PLATELETS PRESENT; POIKILOCYTOSIS SLIGHT; STOMATOCYTES SLIGHT; TARGET CELLS SLIGHT
--- NOTE | 2018-07-09 09:46 | CP.PCM.PN ---
Subjective - Date & Time of Evaluation Date of Evaluation: 07/09/18 Time of Evaluation: 09:40 - Subjective Subjective: afebrile no new chems hb stable sob since last PM ROS no chest pain heoptysis sob no abd pain nausea no vomiting diarrhea anuric Objective - Vital Signs/Intake and Output Vital Signs (last 24 hours): Temp Pulse Resp BP Pulse Ox 97.4 F L 103 H 20 114/65 98 07/09/18 08:34 07/09/18 08:34 07/09/18 08:34 07/09/18 08:34 07/09/18 08:34 Intake and Output: 07/09/18 07/09/18 06:59 18:59 Intake Total 240 Balance 240 - Medications Medications: Current Medications Acetaminophen (Tylenol 325mg Tab) 650 mg PO Q6 PRN PRN Reason: Fever >100.4 F Last Admin: 06/26/18 18:19 Dose: 650 mg Alprazolam (Xanax) 0.25 mg PO BID PRN PRN Reason: Anxiety Stop: 07/13/18 18:40 Last Admin: 07/08/18 10:35 Dose: 0.25 mg Apixaban (Eliquis) 2.5 mg PO Q48H [facility] Last Admin: 07/07/18 13:37 Dose: 2.5 mg Budesonide (Pulmicort Respules) 0.25 mg IH RBID [facility] Last Admin: 07/09/18 08:41 Dose: 0.25 mg Calcium Acetate (Phoslo) 1,334 mg PO TIDCC [facility] Last Admin: 07/08/18 17:05 Dose: Not Given Diltiazem HCl (Cardizem Cd) 240 mg PO DAILY [facility] Last Admin: 07/08/18 10:35 Dose: 240 mg Epoetin Eddie (Procrit) 10,000 unit IV MWF [facility] Last Admin: 07/08/18 17:50 Dose: 10,000 unit Famotidine (Pepcid) 20 mg PO DAILY [facility] Last Admin: 07/08/18 10:35 Dose: 20 mg Fluticasone/Vilanterol (Breo Ellipta 200-25 Mcg Inh) 1 puff INH RQD [facility] Last Admin: 07/09/18 08:38 Dose: 1 puff Glipizide (Glucotrol) 10 mg PO ACBD [facility] Last Admin: 07/08/18 17:04 Dose: Not Given Guaifenesin/Dextromethorphan (Robitussin Dm) 10 ml PO Q4H PRN PRN Reason: Cough and congestion Last Admin: 07/04/18 16:59 Dose: 10 ml Home Med (Patient's Own Drops) 1 drop OD DAILY [facility] Last Admin: 07/08/18 10:36 Dose: 1 drop Insulin Aspart (Novolog) 10 unit SC ONCE MARIBETH Insulin Aspart (Novolog) 0 unit SC ACHS [facility]; Protocol Last Admin: 07/08/18 21:47 Dose: Not Given Insulin Detemir (Levemir) 12 unit SC Q12H [facility] Last Admin: 07/08/18 22:12 Dose: 12 units Levothyroxine Sodium (Synthroid) 150 mcg PO DAILY@0630 [facility] Last Admin: 07/09/18 05:45 Dose: 150 mcg Prednisone (Prednisone Tab) 10 mg PO DAILY [facility] Stop: 07/09/18 10:00 Last Admin: 07/08/18 10:36 Dose: 10 mg Promethazine HCl/Codeine (Phenergan/Codeine Oral Syrup) 10 ml PO Q8H PRN PRN Reason: Cough Last Admin: 07/08/18 10:36 Dose: 10 ml Rosuvastatin Calcium (Crestor) 5 mg PO HS [facility] Last Admin: 07/08/18 21:25 Dose: 5 mg Tiotropium [place] (Spiriva) 18 mcg INH RQ24 [facility] Last Admin: 07/09/18 08:41 Dose: 18 mcg - Labs Labs: 07/09/18 07:43 07/05/18 07:21 - Constitutional Appears: In Acute Distress - Head Exam Additional comments: anxiuos dyspneic - ENT Exam ENT Exam: Mucous Membranes Moist - Respiratory Exam Respiratory Exam: Clear to Ausculation Bilateral, Prolonged Expiratory Phase Additional comments: tachypneic - Cardiovascular Exam Cardiovascular Exam: Irregular Rhythm. absent: JVD - GI/Abdominal Exam GI & Abdominal Exam: Soft. absent: Distended, Tenderness - Extremities Exam Extremities Exam: Pedal Edema - Psychiatric Exam Psychiatric exam: Anxious - Skin Skin Exam: Dry, Warm Assessment and Plan (1) ESRD (end stage renal disease) on dialysis Status: Acute (2) Paroxysmal atrial fibrillation Status: Acute (3) COPD (chronic obstructive pulmonary disease) Status: Acute - Assessment and Plan (Free Text) Plan: schedule dialysis this AM with ultrafiltration and blood transfusion
[2018-07-09] MEDS: BROMFENAC 0.07% OD SCH (10:00)
--- NOTE | 2018-07-09 11:32 | CP.PCM.PN ---
Subjective - Date & Time of Evaluation Date of Evaluation: 07/09/18 Time of Evaluation: 11:30 - Subjective Subjective: pt seen and examined at bedside no acute distress sob less no chest pain no nausea no vomiting no diarrhea Objective - Vital Signs/Intake and Output Vital Signs (last 24 hours): Temp Pulse Resp BP Pulse Ox 98 F 18 L 115 H 109/76 98 07/09/18 11:25 07/09/18 11:25 07/09/18 11:25 07/09/18 11:25 07/09/18 08:34 Intake and Output: 07/09/18 07/09/18 06:59 18:59 Intake Total 240 0 Balance 240 0 - Medications Medications: Current Medications Acetaminophen (Tylenol 325mg Tab) 650 mg PO Q6 PRN PRN Reason: Fever >100.4 F Last Admin: 06/26/18 18:19 Dose: 650 mg Alprazolam (Xanax) 0.25 mg PO BID PRN PRN Reason: Anxiety Stop: 07/13/18 18:40 Last Admin: 07/08/18 10:35 Dose: 0.25 mg Apixaban (Eliquis) 2.5 mg PO Q48H [facility] Last Admin: 07/07/18 13:37 Dose: 2.5 mg Budesonide (Pulmicort Respules) 0.25 mg IH RBID [facility] Last Admin: 07/09/18 08:41 Dose: 0.25 mg Calcium Acetate (Phoslo) 1,334 mg PO TIDCC [facility] Last Admin: 07/08/18 17:05 Dose: Not Given Diltiazem HCl (Cardizem Cd) 240 mg PO DAILY [facility] Last Admin: 07/08/18 10:35 Dose: 240 mg Epoetin Eddie (Procrit) 10,000 unit IV MWF [facility] Last Admin: 07/08/18 17:50 Dose: 10,000 unit Famotidine (Pepcid) 20 mg PO DAILY [facility] Last Admin: 07/08/18 10:35 Dose: 20 mg Fluticasone/Vilanterol (Breo Ellipta 200-25 Mcg Inh) 1 puff INH RQD [facility] Last Admin: 07/09/18 08:38 Dose: 1 puff Glipizide (Glucotrol) 10 mg PO ACBD [facility] Last Admin: 07/08/18 17:04 Dose: Not Given Guaifenesin/Dextromethorphan (Robitussin Dm) 10 ml PO Q4H PRN PRN Reason: Cough and congestion Last Admin: 07/04/18 16:59 Dose: 10 ml Home Med (Patient's Own Drops) 1 drop OD DAILY [facility] Last Admin: 07/08/18 10:36 Dose: 1 drop Insulin Aspart (Novolog) 10 unit SC ONCE MARIBETH Insulin Aspart (Novolog) 0 unit SC ACHS [facility]; Protocol Last Admin: 07/08/18 21:47 Dose: Not Given Insulin Detemir (Levemir) 12 unit SC Q12H [facility] Last Admin: 07/08/18 22:12 Dose: 12 units Levothyroxine Sodium (Synthroid) 150 mcg PO DAILY@0630 [facility] Last Admin: 07/09/18 05:45 Dose: 150 mcg Promethazine HCl/Codeine (Phenergan/Codeine Oral Syrup) 10 ml PO Q8H PRN PRN Reason: Cough Last Admin: 07/08/18 10:36 Dose: 10 ml Rosuvastatin Calcium (Crestor) 5 mg PO HS [facility] Last Admin: 07/08/18 21:25 Dose: 5 mg Tiotropium [place] (Spiriva) 18 mcg INH RQ24 [facility] Last Admin: 07/09/18 08:41 Dose: 18 mcg - Labs Labs: 07/09/18 07:43 07/05/18 07:21 - Constitutional Appears: Well - Head Exam Head Exam: ATRAUMATIC, NORMAL INSPECTION, NORMOCEPHALIC - Eye Exam Eye Exam: EOMI, Normal appearance, PERRL Pupil Exam: NORMAL ACCOMODATION, PERRL - ENT Exam ENT Exam: Mucous Membranes Moist, Normal Exam - Neck Exam Neck Exam: Full ROM, Normal Inspection. absent: Lymphadenopathy - Respiratory Exam Respiratory Exam: Decreased Breath Sounds - Cardiovascular Exam Cardiovascular Exam: REGULAR RHYTHM, +S1, +S2 - GI/Abdominal Exam GI & Abdominal Exam: Soft, Diminished Bowel Sounds - Rectal Exam Rectal Exam: Deferred Assessment and Plan (1) CHF exacerbation Status: Acute (2) Dyspnea Status: Acute (3) ESRD (end stage renal disease) on dialysis Status: Acute (4) Uncontrolled diabetes mellitus Status: Acute (5) MARIA EUGENIA (acute kidney injury) Status: Acute (6) Abdominal pain Status: Acute (7) Acute bronchitis Status: Acute (8) Acute kidney injury Status: Acute (9) Acute kidney injury superimposed on chronic kidney disease Status: Acute (10) Acute respiratory failure Status: Acute (11) Anemia Status: Acute (12) Anemia of chronic disease Status: Acute (13) Atrial fibrillation with controlled ventricular response Status: Acute (14) Back pain of thoracolumbar region Status: Acute (15) Bronchitis Status: Acute (16) Bronchitis Status: Acute (17) CHF (congestive heart failure) Status: Acute (18) CHF (congestive heart failure) Status: Acute (19) CKD (chronic kidney disease) stage 3, GFR 30-59 ml/min Status: Acute (20) COPD (chronic obstructive pulmonary disease) Status: Acute (21) COPD exacerbation Status: Acute (22) COPD exacerbation Status: Acute (23) Chest pain Status: Acute (24) ESR raised Status: Acute (25) ESRD (end stage renal disease) Status: Acute (26) Fluid overload Status: Acute (27) Fluid overload, unspecified Status: Acute (28) Gastritis Status: Acute (29) Hepatitis Status: Acute (30) History of asthma Status: Acute (31) History of atrial fibrillation Status: Acute (32) History of back pain Status: Acute (33) History of gastroesophageal reflux (GERD) Status: Acute (34) Hypercalcemia Status: Acute (35) Hyperlipemia Status: Acute (36) Influenza Status: Acute (37) Leucocytosis Status: Acute (38) Lower extremity pain Status: Acute (39) Multiple myeloma Status: Acute (40) Multiple myeloma Status: Acute (41) Myeloma Status: Acute (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 (43) Occult gastrointestinal hemorrhage Status: Acute (44) Paroxysmal A-fib Status: Acute (45) Pneumonia Status: Acute (46) Prophylactic measure Status: Acute (47) Pulmonary hypertension Status: Acute (48) Pulmonary hypertension Status: Acute (49) Renal failure Status: Acute (50) Respiratory tract infection Status: Acute (51) Streptococcus pneumoniae Status: Acute (52) Symptomatic anemia Status: Acute (53) Vertigo Status: Acute (54) Worsening renal function Status: Acute (55) Anemia Status: Chronic (56) Asthma Status: Chronic (57) Atrial fibrillation Status: Chronic (58) Chronic diastolic (congestive) heart failure Status: Chronic (59) Diabetes Status: Chronic (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
[2018-07-09] MEDS: Insulin Detemir 100 units/ml Vial (Levemir) SC SCH ×2 (12:39→22:13)
[2018-07-09] MEDS: diltiaZEM 240 mg/24 Hours CD Cap PO SCH ×2 (13:10→14:30)
--- NOTE | 2018-07-09 13:37 | PCM.RRT ---
<Almas Nice - Last Filed: 07/09/18 13:46> POSITION DESCRIPTION MANAGER Nurses Assessment - Situation Date: 07/09/18 Time POSITION DESCRIPTION MANAGER was called: 13:25 POSITION DESCRIPTION MANAGER Responder Arrival Time:: 13:26 POSITION DESCRIPTION MANAGER Location:: 3D Dialysis Room Number: 362 POSITION DESCRIPTION MANAGER Reason for Call: Tachycardia (150s) POSITION DESCRIPTION MANAGER Called By: RN - IV IV Inserted during POSITION DESCRIPTION MANAGER?: No - Respiratory POSITION DESCRIPTION MANAGER Delivery Method: Nasal Cannula @L/min (4) - Ventilator Settings FIO2 (% Oxygen): 40 - Medication Medications Administered During POSITION DESCRIPTION MANAGER: cardizem 5mg IVP x3 - Diagnostic Test Ordered EKG: Yes - Stat Labs Ordered POSITION DESCRIPTION MANAGER Stat Labs Ordered: CBC, BMP (cmp) POSITION DESCRIPTION MANAGER Other Labs Ordered: mg, ph CPR started during POSITION DESCRIPTION MANAGER?: No - Vital Signs Vital Signs: Rapid Response Vital Sign Blood Pressure 129/62 Pulse Rate 160 Respiratory Rate 18 Temperature 98.9 F Oxygen Saturation 92 on 4L NC - Yelena Coma Scale Coma Scale Eye Opening: Spontaneous Coma Scale Motor: Obeys Commands Movement Coma Scale Verbal: Oriented Coma Scale Total: 15 - Time POSITION DESCRIPTION MANAGER Ended Time POSITION DESCRIPTION MANAGER Ended: 13:43 - Vital Signs at end of POSITION DESCRIPTION MANAGER Vital Signs at end of POSITION DESCRIPTION MANAGER: Rapid Response End Vital Sign Blood Pressure 113/61 Pulse Rate 140 Respiratory Rate 18 Temperature 98.9 O2 Sat by Pulse Oximetry 92 on 4L NC - Recommendations 5) POSITION DESCRIPTION MANAGER Level of Care Recommendations: Transfer to ICU (will start cardizem gtt at 10 mg/hr) Notifications: Attending Physician (Celena Penn), Consultations (ICU, Dr. Kessler) - Respiratory Oxygen Delivery Method: High-Flow @% <Nika Junior V - Last Filed: 07/14/18 15:29> POSITION DESCRIPTION MANAGER Nurses Assessment - Vital Signs Vital Signs: Rapid Response Vital Sign Blood Pressure 80/59 Pulse Rate 144 Respiratory Rate 20 Temperature 97.3 F Oxygen Saturation 96 - Vital Signs at end of POSITION DESCRIPTION MANAGER Vital Signs at end of POSITION DESCRIPTION MANAGER: Rapid Response End Vital Sign Blood Pressure 90/57 Pulse Rate 153 Respiratory Rate 18 Temperature 98.3 F O2 Sat by Pulse Oximetry 97 Attending/Attestation - Attestation I have personally seen and examined this patient.: Yes I have fully participated in the care of the patient.: Yes I have reviewed all pertinent clinical information, including history, physical exam and plan: Yes Notes (Text): Late computer entry POSITION DESCRIPTION MANAGER note: atrial fibrillation heart rate 140s Patient during dialysis noted for atrial fibrillation 140s. patient did not receive her cardizem CD today. Patient required total of Cardizem 15mg IVPX1 however heart rate remained uncontrolled; critical consulted; placed on cardizem drip, transferred to ICU. Patient at dialysis had only ten minutes left, received 1 unit of PRBC during dialysis, no fever noted. PMD notified and aware.
--- NOTE | 2018-07-09 13:48 | CP.PCM.CON ---
<Mandeep Garduno - Last Filed: 07/09/18 15:22> History of Present Illness - History of Present Illness History of Present Illness: ICU Consult Note for Dr. Kessler This is an 83 y o female with PMhx HTN, hypothyroidism, A-fib, DM, anemia, multiple myeloma, CHF, and COPD who presented on this current admission with hyperglycemia and was admitted to medical floor for further management. S/p MOBILE SALES TECHNICIAN on 06/26/18 for tachycardia s/p HD, which required admission to ICU for A-fib with RVR. Was called to eval pt today s/p MOBILE SALES TECHNICIAN for tachycardia during HD today, rhythm strip demonstrated A-fib with RVR. Pt currently asymptomatic at bedside, denied any acute complaints, AAOx3 on exam. Pt to be transferred to ICU, Cardizem gtt started during MOBILE SALES TECHNICIAN. Medical hx reviewed in chart. Review of Systems - Constitutional Constitutional: absent: Chills, Fatigue, Fever - Cardiovascular Cardiovascular: absent: Chest Pain, Diaphoresis, Dyspnea, Palpitations, Syncope - Respiratory Respiratory: absent: Cough, Dyspnea, Wheezing - Gastrointestinal Gastrointestinal: absent: Abdominal Pain, Constipation, Diarrhea, Nausea, Vomiting - Genitourinary Genitourinary: absent: Difficulty Urinating, Dysuria Past Patient History - Infectious Disease Hx of Infectious Diseases: None - Past Medical History & Family History Past Medical History?: Yes - Past Social History Smoking Status: Former Smoker - CARDIAC Hx Cardiac Disorders: Yes Hx Congestive Heart Failure: Yes Hx Hypercholesterolemia: Yes Hx Hypertension: Yes - PULMONARY Hx Chronic Obstructive Pulmonary Disease (COPD): Yes - NEUROLOGICAL Hx Neurological Disorder: No - HEENT Hx HEENT Problems: Yes Hx Cataracts: Yes (bilateral) - RENAL Hx Renal Failure: Yes - ENDOCRINE/METABOLIC Hx Diabetes Mellitus Type 1: Yes Hx Diabetes Mellitus Type 2: Yes Hx Hypothyroidism: Yes - HEMATOLOGICAL/ONCOLOGICAL Hx Blood Disorders: Yes Hx Anemia: Yes Other/Comment: Multiple Myeloma - INTEGUMENTARY Hx Dermatological Problems: No Hx Basil Cell: No Hx Padilla: No Hx Cellulitis: No Hx Eczema: No Hx Melanoma: No Hx Squamous Cell: No - MUSCULOSKELETAL/RHEUMATOLOGICAL Hx Arthritis: Yes - GASTROINTESTINAL Hx Gastrointestinal Disorders: Yes Hx Hemorrhoids: Yes - GENITOURINARY/GYNECOLOGICAL Hx Genitourinary Disorders: No - PSYCHIATRIC Hx Psychophysiologic Disorder: No Hx Substance Use: No - SURGICAL HISTORY Hx Surgeries: Yes Hx Arteriovenous Shunt: Yes (LEFT ARM AV ,permacath) Hx Vascular Access Device: Yes (perma cath elaina cath) - ANESTHESIA Hx Anesthesia: Yes Hx Anesthesia Reactions: No Hx Malignant Hyperthermia: No Has any member of the family had a problem w/ anesthesia?: No Meds Allergies/Adverse Reactions: Allergies Allergy/AdvReac Type Severity Reaction Status Date / Time No Known Allergies Allergy Verified 06/25/18 14:25 - Medications Medications: Current Medications Acetaminophen (Tylenol 325mg Tab) 650 mg PO Q6 PRN PRN Reason: Fever >100.4 F Last Admin: 06/26/18 18:19 Dose: 650 mg Alprazolam (Xanax) 0.25 mg PO BID PRN PRN Reason: Anxiety Stop: 07/13/18 18:40 Last Admin: 07/08/18 10:35 Dose: 0.25 mg Apixaban (Eliquis) 2.5 mg PO Q48H [facility] Last Admin: 07/07/18 13:37 Dose: 2.5 mg Budesonide (Pulmicort Respules) 0.25 mg IH RBID [facility] Last Admin: 07/09/18 08:41 Dose: 0.25 mg Calcium Acetate (Phoslo) 1,334 mg PO TIDCC [facility] Last Admin: 07/09/18 12:41 Dose: Not Given Diltiazem HCl (Cardizem Cd) 240 mg PO DAILY [facility] Last Admin: 07/08/18 10:35 Dose: 240 mg Epoetin Eddie (Procrit) 10,000 unit IV MWF [facility] Last Admin: 07/08/18 17:50 Dose: 10,000 unit Famotidine (Pepcid) 20 mg PO DAILY [facility] Last Admin: 07/08/18 10:35 Dose: 20 mg Fluticasone/Vilanterol (Breo Ellipta 200-25 Mcg Inh) 1 puff INH RQD [facility] Last Admin: 07/09/18 08:38 Dose: 1 puff Glipizide (Glucotrol) 10 mg PO ACBD [facility] Last Admin: 07/08/18 17:04 Dose: Not Given Guaifenesin/Dextromethorphan (Robitussin Dm) 10 ml PO Q4H PRN PRN Reason: Cough and congestion Last Admin: 07/04/18 16:59 Dose: 10 ml Home Med (Patient's Own Drops) 1 drop OD DAILY [facility] Last Admin: 07/08/18 10:36 Dose: 1 drop Diltiazem HCl 125 mg/ Sodium (Chloride) 125 mls @ 10 mls/hr IV .[id number] [facility]; Protocol Insulin Aspart (Novolog) 10 unit SC ONCE [facility] Insulin Aspart (Novolog) 0 unit SC ACHS [facility]; Protocol Last Admin: 07/09/18 08:30 Dose: Not Given Insulin Detemir (Levemir) 12 unit SC Q12H [facility] Last Admin: 07/09/18 12:39 Dose: Not Given Levothyroxine Sodium (Synthroid) 150 mcg PO DAILY@0630 [facility] Last Admin: 07/09/18 05:45 Dose: 150 mcg Promethazine HCl/Codeine (Phenergan/Codeine Oral Syrup) 10 ml PO Q8H PRN PRN Reason: Cough Last Admin: 07/08/18 10:36 Dose: 10 ml Rosuvastatin Calcium (Crestor) 5 mg PO HS [facility] Last Admin: 07/08/18 21:25 Dose: 5 mg Tiotropium [place] (Spiriva) 18 mcg INH RQ24 [facility] Last Admin: 07/09/18 08:41 Dose: 18 mcg Physical Exam - Constitutional Appears: Non-toxic, No Acute Distress - Head Exam Head Exam: ATRAUMATIC, NORMOCEPHALIC - Eye Exam Eye Exam: EOMI, Normal appearance, PERRL - ENT Exam ENT Exam: Mucous Membranes Moist - Cardiovascular Exam Cardiovascular Exam: Tachycardia, Irregular Rhythm, +S1, +S2. absent: Gallop, Rubs, Systolic Murmur - GI/Abdominal Exam GI & Abdominal Exam: Normal Bowel Sounds, Soft. absent: Distended, Organomegaly, Tenderness - Extremities Exam Extremities exam: Positive for: normal capillary refill, normal inspection, pedal pulses present. Negative for: pedal edema - Skin Skin Exam: Dry, Intact, Warm Results - Vital Signs Recent Vital Signs: Last Vital Signs Temp 97.5 F L 07/09/18 12:19 Pulse 94 H 07/09/18 12:19 Resp 94 H 07/09/18 12:19 BP 128/52 L 07/09/18 12:19 Pulse Ox 98 07/09/18 08:34 - Labs Result Diagrams: 07/09/18 13:43 07/09/18 13:43 Labs: Laboratory Results - last 24 hr 07/07/18 07/08/18 07/08/18 07:22 07:53 11:19 WBC RBC Hgb Hct MCV MCH MCHC RDW Plt Count MPV Neut % (Auto) Lymph % (Auto) [place] % (Auto) Eos % (Auto) Baso % (Auto) Neut # (Auto) Lymph # (Auto) [place] # (Auto) Eos # (Auto) Baso # (Auto) Neutrophils % (Manual) Lymphocytes % (Manual) Monocytes % (Manual) Platelet Estimate Large Platelets Giant Platelets Hypochromasia (manual) Poikilocytosis (manual Anisocytosis (manual) Target Cells Stomatocytes Smear Path Review POC Glucose (mg/dL) 256 H Lactic Acid Blood Type B POSITIVE Antibody Screen Negative 07/08/18 07/08/18 07/08/18 15:05 17:25 21:43 WBC RBC Hgb Hct MCV MCH MCHC RDW Plt Count MPV Neut % (Auto) Lymph % (Auto) [place] % (Auto) Eos % (Auto) Baso % (Auto) Neut # (Auto) Lymph # (Auto) [place] # (Auto) Eos # (Auto) Baso # (Auto) Neutrophils % (Manual) Lymphocytes % (Manual) Monocytes % (Manual) Platelet Estimate Large Platelets Giant Platelets Hypochromasia (manual) Poikilocytosis (manual Anisocytosis (manual) Target Cells Stomatocytes Smear Path Review POC Glucose (mg/dL) 123 H 214 H Lactic Acid 1.3 Blood Type Antibody Screen 07/09/18 07/09/18 07/09/18 07:43 11:13 13:39 WBC 31.7 H RBC 2.78 L Hgb 7.6 L Hct 24.2 L MCV 87.1 MCH 27.4 MCHC 31.5 L RDW 17.4 H Plt Count 108 L D MPV 10.9 Neut % (Auto) 96.0 H Lymph % (Auto) 1.6 L [place] % (Auto) 2.3 Eos % (Auto) 0.0 Baso % (Auto) 0.1 Neut # (Auto) 30.4 H Lymph # (Auto) 0.5 L [place] # (Auto) 0.7 Eos # (Auto) 0.0 Baso # (Auto) 0.0 Neutrophils % (Manual) 97 H Lymphocytes % (Manual) 1 L Monocytes % (Manual) 2 Platelet Estimate Slightly decreased L Large Platelets Present Giant Platelets Present Hypochromasia (manual) Slight Poikilocytosis (manual Slight Anisocytosis (manual) Slight Target Cells Slight Stomatocytes Slight Smear Path Review POC Glucose (mg/dL) 252 H 139 H Lactic Acid Blood Type Antibody Screen Assessment & Plan - Assessment and Plan (Free Text) Assessment: This is an 83 y o female with PMhx HTN, hypothyroidism, A-fib, DM, anemia, multiple myeloma, CHF, and COPD who presented on this current admission with hyperglycemia and was admitted to medical floor for further management. S/p MOBILE SALES TECHNICIAN on 06/26/18 for tachycardia s/p HD, which required admission to ICU for A-fib with RVR. Was called to eval pt today s/p [employer] SALES TECHNICIAN for tachycardia during HD today, rhythm strip demonstrated A-fib with RVR. Pt to be transferred to ICU, Cardizem gtt started during MOBI[employer] SALES TECHNICIAN. Plan: Neuro: -AAOx3, no gross deficits on exam, will cont to monitor Cardio: -Afib with RVR S/p MOBILE SALES TECHNICIAN on 06/26/18, EKG during MOBILE SALES TECHNICIAN demonstrated Afib with RVR S/p MOBILE SALES TECHNICIAN today for A-fib with RVR, started on Cardizem gtt Cardizem 240 mg PO daily S/p Cardizem IVPs without improvement in HR C/w home med Eliquis 2.5 mg renally dosed Cardiology consulted (Dr. Gold), recs appreciated Trop 0.03 -Hx HTN, CHF BNP elevated on admission -Cont to monitor Pulm: -Hx COPD C/w Pulmicort, Spiriva, Fluticasone -Robitussin prn for cough -Recent CXR 07/07: no active disease -Pulm consulted (Dr. Mai), recs appreciated GI: -Renal diet -Pepcid -No acute issues at this time Renal: -Hx ESRD on HD MWF C/w HD while inpatient -Nephro (Dr. Bill) consulted, recs appreciated -EPO MWF Heme: -H/H 10.3/31.3, stable, cont to monitor -EPO started -Iron studies demonstrate deficiency -Leukocytosis trending up ID: -Leukocytosis trending up -Afebrile -S/p Azithromycin and Cefepime for tx of PNA; on no current anbx regimen at this time -Flu swab neg -ID consulted (Dr. Luong), recs appreciated Endo: -Hx hypothyroidism C/w Synthroid 150 mcg daily -Hx DM, admitted for hyperglycemia during this current admission Insulin aspart 20 U sc acbd Levemir 12 U sc q12h Glipizide 10 mg PO acbd ISS Fingersticks achs Hypoglycemic protocol A1c 8.5 PPX: -Pepcid, SCD, Eliquis Pt seen, examined with, and plan discussed with Dr. Kessler, attending physician. Mandeep Garduno DO PGY-1, Team Driver <Pepe Kessler - Last Filed: 07/09/18 17:30> Meds - Medications Medications: Current Medications Acetaminophen (Tylenol 325mg Tab) 650 mg PO Q6 PRN PRN Reason: Fever >100.4 F Last Admin: 06/26/18 18:19 Dose: 650 mg Alprazolam (Xanax) 0.25 mg PO BID PRN PRN Reason: Anxiety Stop: 07/13/18 18:40 Last Admin: 07/08/18 10:35 Dose: 0.25 mg Apixaban (Eliquis) 2.5 mg PO Q48H [facility] Last Admin: 07/09/18 15:48 Dose: 2.5 mg Budesonide (Pulmicort Respules) 0.25 mg IH RBID [facility] Last Admin: 07/09/18 08:41 Dose: 0.25 mg Calcium Acetate (Phoslo) 1,334 mg PO TIDCC [facility] Last Admin: 07/09/18 16:38 Dose: 1,334 mg Diltiazem HCl (Cardizem Cd) 240 mg PO DAILY [facility] Last Admin: 07/09/18 14:30 Dose: Not Given Epoetin Eddie (Procrit) 10,000 unit IV MWF [facility] Last Admin: 07/08/18 17:50 Dose: 10,000 unit Famotidine (Pepcid) 20 mg PO DAILY [facility] Last Admin: 07/09/18 10:00 Dose: Not Given Fluticasone/Vilanterol (Breo Ellipta 200-25 Mcg Inh) 1 puff INH RQD [facility] Last Admin: 07/09/18 08:38 Dose: 1 puff Glipizide (Glucotrol) 10 mg PO ACBD [facility] Last Admin: 07/09/18 15:47 Dose: 10 mg Guaifenesin/Dextromethorphan (Robitussin Dm) 10 ml PO Q4H PRN PRN Reason: Cough and congestion Last Admin: 07/04/18 16:59 Dose: 10 ml Home Med (Patient's Own Drops) 1 drop OD DAILY [facility] Last Admin: 07/09/18 10:00 Dose: Not Given Diltiazem HCl 125 mg/ Sodium (Chloride) 125 mls @ 10 mls/hr IV .[id number] [facility]; Protocol Last Admin: 07/09/18 14:36 Dose: 10 mg/hr, 10 mls/hr Insulin Aspart (Novolog) 10 unit SC ONCE [facility] Insulin Aspart (Novolog) 0 unit SC ACHS [facility]; Protocol Last Admin: 07/09/18 16:37 Dose: 2 units Insulin Detemir (Levemir) 12 unit SC Q12H [facility] Last Admin: 07/09/18 12:39 Dose: Not Given Levothyroxine Sodium (Synthroid) 150 mcg PO DAILY@0630 [facility] Last Admin: 07/09/18 05:45 Dose: 150 mcg Promethazine HCl/Codeine (Phenergan/Codeine Oral Syrup) 10 ml PO Q8H PRN PRN Reason: Cough Last Admin: 07/08/18 10:36 Dose: 10 ml Rosuvastatin Calcium (Crestor) 5 mg PO HS [facility] Last Admin: 07/08/18 21:25 Dose: 5 mg Tiotropium [place] (Spiriva) 18 mcg INH RQ24 [facility] Last Admin: 07/09/18 08:41 Dose: 18 mcg Results - Vital Signs Recent Vital Signs: Last Vital Signs Temp 98.2 F 07/09/18 16:00 Pulse 119 H 07/09/18 17:00 Resp 24 07/09/18 17:00 BP 106/53 L 07/09/18 17:00 Pulse Ox 94 L 07/09/18 17:00 - Labs Result Diagrams: 07/09/18 13:43 07/09/18 13:43 Labs: Laboratory Results - last 24 hr 07/07/18 07/08/18 07/08/18 07:22 07:53 21:43 WBC RBC Hgb Hct MCV MCH MCHC RDW Plt Count MPV Neut % (Auto) Lymph % (Auto) [place] % (Auto) Eos % (Auto) Baso % (Auto) Neut # (Auto) Lymph # (Auto) [place] # (Auto) Eos # (Auto) Baso # (Auto) Neutrophils % (Manual) Lymphocytes % (Manual) Monocytes % (Manual) Platelet Estimate Large Platelets Giant Platelets Hypochromasia (manual) Poikilocytosis (manual Anisocytosis (manual) Target Cells Stomatocytes Smear Path Review Sodium Potassium Chloride Carbon Dioxide Anion Gap BUN Creatinine Est GFR ( Amer) Est GFR (Non-Af Amer) POC Glucose (mg/dL) 214 H Random Glucose Calcium Phosphorus Magnesium Total Bilirubin AST ALT Alkaline Phosphatase Total Protein Albumin Globulin Albumin/Globulin Ratio Blood Type B POSITIVE Antibody Screen Negative 07/09/18 07/09/18 07/09/18 06:44 07:43 11:13 WBC 31.7 H RBC 2.78 L Hgb 7.6 L Hct 24.2 L MCV 87.1 MCH 27.4 MCHC 31.5 L RDW 17.4 H Plt Count 108 L D MPV 10.9 Neut % (Auto) 96.0 H Lymph % (Auto) 1.6 L [place] % (Auto) 2.3 Eos % (Auto) 0.0 Baso % (Auto) 0.1 Neut # (Auto) 30.4 H Lymph # (Auto) 0.5 L [place] # (Auto) 0.7 Eos # (Auto) 0.0 Baso # (Auto) 0.0 Neutrophils % (Manual) 97 H Lymphocytes % (Manual) 1 L Monocytes % (Manual) 2 Platelet Estimate Slightly decreased L Large Platelets Present Giant Platelets Present Hypochromasia (manual) Slight Poikilocytosis (manual Slight Anisocytosis (manual) Slight Target Cells Slight Stomatocytes Slight Smear Path Review Sodium Potassium Chloride Carbon Dioxide Anion Gap BUN Creatinine Est GFR ( Amer) Est GFR (Non-Af Amer) POC Glucose (mg/dL) 166 H 252 H Random Glucose Calcium Phosphorus Magnesium Total Bilirubin AST ALT Alkaline Phosphatase Total Protein Albumin Globulin Albumin/Globulin Ratio Blood Type Antibody Screen 07/09/18 07/09/18 07/09/18 13:39 13:43 13:43 WBC 35.5 H RBC 3.69 L Hgb 10.3 L D Hct 31.3 L MCV 84.8 D MCH 27.9 MCHC 32.8 L RDW 16.5 H Plt Count 118 L MPV 11.0 Neut % (Auto) Lymph % (Auto) [place] % (Auto) Eos % (Auto) Baso % (Auto) Neut # (Auto) Lymph # (Auto) [place] # (Auto) Eos # (Auto) Baso # (Auto) Neutrophils % (Manual) Lymphocytes % (Manual) Monocytes % (Manual) Platelet Estimate Large Platelets Giant Platelets Hypochromasia (manual) Poikilocytosis (manual Anisocytosis (manual) Target Cells Stomatocytes Smear Path Review Sodium 136 Potassium 3.4 L Chloride 98 Carbon Dioxide 32 H Anion Gap 9 L BUN 23 H Creatinine 1.4 H Est GFR ( Amer) 44 Est GFR (Non-Af Amer) 36 POC Glucose (mg/dL) 139 H Random Glucose 134 H D Calcium 8.4 L Phosphorus 2.5 Magnesium 2.0 Total Bilirubin 1.0 AST 26 ALT 17 Alkaline Phosphatase 121 Total Protein 6.2 L Albumin 3.0 L Globulin 3.3 Albumin/Globulin Ratio 0.9 L Blood Type Antibody Screen 07/09/18 15:58 WBC RBC Hgb Hct MCV MCH MCHC RDW Plt Count MPV Neut % (Auto) Lymph % (Auto) [place] % (Auto) Eos % (Auto) Baso % (Auto) Neut # (Auto) Lymph # (Auto) [place] # (Auto) Eos # (Auto) Baso # (Auto) Neutrophils % (Manual) Lymphocytes % (Manual) Monocytes % (Manual) Platelet Estimate Large Platelets Giant Platelets Hypochromasia (manual) Poikilocytosis (manual Anisocytosis (manual) Target Cells Stomatocytes Smear Path Review Sodium Potassium Chloride Carbon Dioxide Anion Gap BUN Creatinine Est GFR ( Amer) Est GFR (Non-Af Amer) POC Glucose (mg/dL) 190 H Random Glucose Calcium Phosphorus Magnesium Total Bilirubin AST ALT Alkaline Phosphatase Total Protein Albumin Globulin Albumin/Globulin Ratio Blood Type Antibody Screen Attending/Attestation - Attestation I have personally seen and examined this patient.: Yes I have fully participated in the care of the patient.: Yes I have reviewed all pertinent clinical information: Yes Notes (Text): 07/09/18 17:29 Patient seen and examined during hemodialysis Patient developed A. fib with rapid atrial response during hemodialysis and started on Cardizem drip ICU observation Oncology evaluation Dr. Martinez
[2018-07-09 13:54] LABS: MEAN CORPUSCULAR HEMOGLOBIN 27.9 pg (27.0-31.0); MEAN CORPUSCULAR HGB CONC 32.8 g/dL (33.0-37.0); RBC 3.69 Mil/uL (3.80-5.20); RED CELL DISTRIBUTION WIDTH 16.5 % (11.5-14.5); WHITE BLOOD COUNT 35.5 K/uL (4.8-10.8)
[2018-07-09 13:57] LABS: HEMOGLOBIN 10.3 g/dL (11.0-16.0); MEAN CELL VOLUME 84.8 fL (81.0-99.0)
[2018-07-09 14:11] LABS: ALB/GLOB RATIO 0.9 (1.0-2.1); CALCIUM 8.4 mg/dl (8.6-10.4)
[2018-07-09] MEDS ORDERED: Potassium Chloride 20 mEq/15 ml LIQ UD PO SCH (15:45)
--- NOTE | 2018-07-09 18:23 | CP.PCM.PN ---
Subjective - Date & Time of Evaluation Date of Evaluation: 07/09/18 Time of Evaluation: 18:23 Objective - Vital Signs/Intake and Output Vital Signs (last 24 hours): Temp Pulse Resp BP Pulse Ox 98.2 F 127 H 20 121/72 96 07/09/18 16:00 07/09/18 18:00 07/09/18 18:00 07/09/18 18:00 07/09/18 18:00 Intake and Output: 07/09/18 07/09/18 06:59 18:59 Intake Total 240 710 Balance 240 710 - Medications Medications: Current Medications Acetaminophen (Tylenol 325mg Tab) 650 mg PO Q6 PRN PRN Reason: Fever >100.4 F Last Admin: 06/26/18 18:19 Dose: 650 mg Alprazolam (Xanax) 0.25 mg PO BID PRN PRN Reason: Anxiety Stop: 07/13/18 18:40 Last Admin: 07/08/18 10:35 Dose: 0.25 mg Apixaban (Eliquis) 2.5 mg PO Q48H [facility] Last Admin: 07/09/18 15:48 Dose: 2.5 mg Budesonide (Pulmicort Respules) 0.25 mg IH RBID [facility] Last Admin: 07/09/18 08:41 Dose: 0.25 mg Calcium Acetate (Phoslo) 1,334 mg PO TIDCC [facility] Last Admin: 07/09/18 16:38 Dose: 1,334 mg Diltiazem HCl (Cardizem Cd) 240 mg PO DAILY [facility] Last Admin: 07/09/18 14:30 Dose: Not Given Epoetin Eddie (Procrit) 10,000 unit IV MWF [facility] Last Admin: 07/08/18 17:50 Dose: 10,000 unit Famotidine (Pepcid) 20 mg PO DAILY [facility] Last Admin: 07/09/18 10:00 Dose: Not Given Fluticasone/Vilanterol (Breo Ellipta 200-25 Mcg Inh) 1 puff INH RQD [facility] Last Admin: 07/09/18 08:38 Dose: 1 puff Glipizide (Glucotrol) 10 mg PO ACBD [facility] Last Admin: 07/09/18 15:47 Dose: 10 mg Guaifenesin/Dextromethorphan (Robitussin Dm) 10 ml PO Q4H PRN PRN Reason: Cough and congestion Last Admin: 07/04/18 16:59 Dose: 10 ml Home Med (Patient's Own Drops) 1 drop OD DAILY [facility] Last Admin: 07/09/18 10:00 Dose: Not Given Diltiazem HCl 125 mg/ Sodium (Chloride) 125 mls @ 10 mls/hr IV .[id number] [facility]; Protocol Last Admin: 07/09/18 14:36 Dose: 10 mg/hr, 10 mls/hr Insulin Aspart (Novolog) 10 unit SC ONCE [facility] Insulin Aspart (Novolog) 0 unit SC ACHS [facility]; Protocol Last Admin: 07/09/18 16:37 Dose: 2 units Insulin Detemir (Levemir) 12 unit SC Q12H [facility] Last Admin: 07/09/18 12:39 Dose: Not Given Levothyroxine Sodium (Synthroid) 150 mcg PO DAILY@0630 [facility] Last Admin: 07/09/18 05:45 Dose: 150 mcg Promethazine HCl/Codeine (Phenergan/Codeine Oral Syrup) 10 ml PO Q8H PRN PRN Reason: Cough Last Admin: 07/08/18 10:36 Dose: 10 ml Rosuvastatin Calcium (Crestor) 5 mg PO HS [facility] Last Admin: 07/08/18 21:25 Dose: 5 mg Tiotropium [place] (Spiriva) 18 mcg INH RQ24 [facility] Last Admin: 07/09/18 08:41 Dose: 18 mcg - Labs Labs: 07/09/18 13:43 07/09/18 13:43 Assessment and Plan (1) CHF exacerbation Status: Acute (2) Dyspnea Status: Acute (3) Atrial fibrillation with RVR Status: Resolved (4) COPD (chronic obstructive pulmonary disease) Status: Acute (5) ESRD (end stage renal disease) Status: Acute
[2018-07-10 06:37] LABS: BASO # 0.1 K/uL (0.0-0.2); BASO % 0.2 % (0.0-2.0); HEMOGLOBIN 9.5 g/dL (11.0-16.0); LYMPH # 0.5 K/uL (1.0-4.3); LYMPH % 1.9 % (20.0-40.0); MEAN CELL VOLUME 87.2 fL (81.0-99.0); MEAN CORPUSCULAR HEMOGLOBIN 27.5 pg (27.0-31.0); MEAN CORPUSCULAR HGB CONC 31.5 g/dL (33.0-37.0); MEAN PLATELET VOLUME 11.4 fL (7.2-11.7); MONO # 0.7 K/uL (0.0-0.8); MONO % 2.4 % (0.0-10.0); NEUT # 27.2 K/uL (1.8-7.0); NEUT % 95.5 % (50.0-75.0); PLATELET COUNT 91 K/uL (130-400); RBC 3.45 Mil/uL (3.80-5.20); WHITE BLOOD COUNT 28.6 K/uL (4.8-10.8)
[2018-07-10 06:50] LABS: ALB/GLOB RATIO 0.9 (1.0-2.1); ALBUMIN 2.8 g/dL (3.5-5.0); CALCIUM 7.9 mg/dl (8.6-10.4)
[2018-07-10] MEDS: Levothyroxine 150 MCG TAB PO SCH (07:07)
--- NOTE | 2018-07-10 07:24 | CP.CCUPN ---
<Mandeep Garduno - Last Filed: 07/10/18 13:07> CCU Subjective - Physician Review Subjective (Free Text): ICU Progress Note for Dr. Kessler Pt seen and examined at bedside this am. Denies any acute complaints this am. Denies headache, dizziness, chest pain, sob, n/v/d/c, abd pain, urinary complain ts, or other symptoms. No acute events reported overnight by staff. Tachycardic, currently on Cardizem drip. CCU Objective - Vital Signs / Intake & Output Vital Signs (Last 4 hours): Vital Signs Temp Pulse Resp BP Pulse Ox 07/10/18 04:04 112 H 26 H 124/61 93 L 07/10/18 04:00 97.8 F 115 H 21 97 Intake and Output (Last 8hrs): Intake & Output 07/09/18 07/10/18 07/10/18 22:59 06:59 14:59 Intake Total 425 205 Balance 425 205 Weight 144 lb 12.8 oz Intake: IV 125 Intake, IV Amount 75 80 Right Antecubital 75 80 Oral 350 0 Other: # Voids Urine, Voided 0 0 # Bowel Movements 0 0 - Physical Exam Head: Positive for: Atraumatic, Normocephalic Pupils: Positive for: PERRL Extroacular Muscles: Positive for: EOMI Conjunctiva: Positive for: Normal Neck: Positive for: Normal Range of Motion. Negative for: Meningeal Signs, JVD, Lymphadenopathy Respiratory/Chest: Positive for: Clear to Auscultation, Good Air Exchange. Negative for: Respiratory Distress, Accessory Muscle Use, Wheezes, Rales, Rhonchi Cardiovascular: Positive for: Normal S1, S2, Irregular Rhythm Abdomen: Positive for: Normal Bowel Sounds. Negative for: Tenderness, Distention, Mass/Organomegaly Upper Extremity: Positive for: Normal Inspection, Normal ROM, NORMAL PULSES, Neurovascularly Intact, Capillary Refill < 2s. Negative for: Cyanosis, Edema Lower Extremity: Positive for: Normal Inspection, NORMAL PULSES, Normal ROM, Neurovascularly Intact, Capillary Refill < 2 s. Negative for: Edema, CALF TENDERNESS Neurological: Positive for: GCS=15, CN II-XII Intact, Speech Normal Skin: Positive for: Warm, Dry, Normal Color Psychiatric: Positive for: Alert, Oriented x 3 - Medications Active Medications: Active Medications Generic Name Dose Route Start Last Admin Trade Name Freq PRN Reason Stop Dose Admin Acetaminophen 650 mg 06/26/18 16:06 06/26/18 18:19 Tylenol 325mg Tab PO 650 mg Q6 PRN Administration Fever >100.4 F Alprazolam 0.25 mg 07/06/18 18:39 07/08/18 10:35 Xanax PO 07/13/18 18:40 0.25 mg BID PRN Administration Anxiety Apixaban 2.5 mg 07/05/18 14:30 07/09/18 15:48 Eliquis PO 2.5 mg Q48H MARIBETH Administration Budesonide 0.25 mg 07/07/18 20:00 07/09/18 08:41 Pulmicort Respules IH 0.25 mg RBID MARIBETH Administration Calcium Acetate 1,334 mg 07/08/18 17:00 07/09/18 16:38 Phoslo PO 1,334 mg TIDCC MARIBETH Administration Diltiazem HCl 240 mg 07/02/18 10:00 07/09/18 14:30 Cardizem Cd PO Not Given DAILY MARIBETH Epoetin Eddie 10,000 unit 06/28/18 13:30 07/08/18 17:50 Procrit IV 10,000 unit MWF MARIBETH Administration Famotidine 20 mg 06/26/18 10:00 07/09/18 10:00 Pepcid PO Not Given DAILY MARIBETH Fluticasone/Vilanterol 1 puff 06/26/18 08:00 07/09/18 08:38 Breo Ellipta 200-25 Mcg Inh INH 1 puff RQD MARIBETH Administration Glipizide 10 mg 06/26/18 07:30 07/09/18 15:47 Glucotrol PO 10 mg ACBD MARIBETH Administration Guaifenesin/Dextromethorphan 10 ml 06/26/18 16:07 07/04/18 16:59 Robitussin Dm PO 10 ml Q4H PRN Administration Cough and congestion Home Med 1 drop 07/01/18 17:00 07/09/18 10:00 Patient's Own Drops OD Not Given DAILY MARIBETH Diltiazem HCl 125 mg/ Sodium 125 mls @ 10 mls/hr 07/09/18 13:45 07/10/18 02:00 Chloride IV Not Given .[id number] MARIBETH Protocol 10 MG/HR Insulin Aspart 10 unit 06/25/18 23:00 Novolog SC ONCE MARIBETH Insulin Aspart 0 unit 06/26/18 07:30 07/09/18 22:13 Novolog SC 2 units ACHS MARIBETH Administration Protocol Insulin Detemir 12 unit 06/25/18 23:00 07/09/18 22:13 Levemir SC 12 units Q12H MARIBETH Administration Levothyroxine Sodium 150 mcg 06/26/18 06:30 07/10/18 07:07 Synthroid PO 150 mcg DAILY@0630 MARIBETH Administration Promethazine HCl/Codeine 10 ml 07/02/18 16:06 07/08/18 10:36 Phenergan/Codeine Oral Syrup PO 10 ml Q8H PRN Administration Cough Rosuvastatin Calcium 5 mg 06/25/18 23:00 07/09/18 22:12 Crestor PO 5 mg HS MARIBETH Administration Tiotropium [place] 18 mcg 06/26/18 08:00 07/09/18 08:41 Spiriva INH 18 mcg RQ24 MARIBETH Administration - Patient Studies Lab Studies: Microbiology Studies 07/08/18 15:04 Blood Culture - Preliminary Blood NO GROWTH AFTER 24 HOURS 07/08/18 14:45 Blood Culture - Preliminary Blood NO GROWTH AFTER 24 HOURS Lab Studies 07/10/18 07/10/18 07/09/18 Range/Units 06:24 06:22 21:13 WBC 28.6 H (4.8-10.8) K/uL RBC 3.45 L (3.80-5.20) Mil/uL Hgb 9.5 L (11.0-16.0) g/dL Hct 30.1 L (34.0-47.0) % MCV 87.2 D (81.0-99.0) fL MCH 27.5 (27.0-31.0) pg MCHC 31.5 L (33.0-37.0) g/dL RDW 17.0 H (11.5-14.5) % Plt Count 91 L D (130-400) K/uL MPV 11.4 (7.2-11.7) fL Neut % (Auto) 95.5 H (50.0-75.0) % Lymph % (Auto) 1.9 L (20.0-40.0) % [place] % (Auto) 2.4 (0.0-10.0) % Eos % (Auto) 0.0 (0.0-4.0) % Baso % (Auto) 0.2 (0.0-2.0) % Neut # (Auto) 27.2 H (1.8-7.0) K/uL Lymph # (Auto) 0.5 L (1.0-4.3) K/uL [place] # (Auto) 0.7 (0.0-0.8) K/uL Eos # (Auto) 0.0 (0.0-0.7) K/uL Baso # (Auto) 0.1 (0.0-0.2) K/uL Neutrophils % (Manual) (50-75) % Lymphocytes % (Manual) (20-40) % Monocytes % (Manual) (0-10) % Platelet Estimate (NORMAL) Large Platelets Giant Platelets Hypochromasia (manual) Poikilocytosis (manual Anisocytosis (manual) Target Cells Stomatocytes Smear Path Review Sodium 134 (132-148) mmol/L Potassium 5.2 (3.6-5.2) mmol/L Chloride 99 (98-107) mmol/L Carbon Dioxide 28 (22-30) mmol/L Anion Gap 12 (10-20) BUN 55 H (7-17) mg/dL Creatinine 2.6 H (0.7-1.2) mg/dL Est GFR ( Amer) 21 Est GFR (Non-Af Amer) 18 POC Glucose (mg/dL) 333 H (65-110) mg/dL Random Glucose 268 H D (65-105) mg/dL Calcium 7.9 L (8.6-10.4) mg/dl Phosphorus 4.1 (2.5-4.5) mg/dL Magnesium 2.3 (1.6-2.3) mg/dL Total Bilirubin 0.8 (0.2-1.3) mg/dL AST 34 (14-36) U/L ALT 7 L D (9-52) U/L Alkaline Phosphatase 99 (38-126) U/L Total Protein 5.8 L (6.3-8.3) g/dL Albumin 2.8 L (3.5-5.0) g/dL Globulin 3.0 (2.2-3.9) gm/dL Albumin/Globulin Ratio 0.9 L (1.0-2.1) Blood Type Antibody Screen 07/09/18 07/09/18 07/09/18 Range/Units 15:58 13:43 13:43 WBC 35.5 H (4.8-10.8) K/uL RBC 3.69 L (3.80-5.20) Mil/uL Hgb 10.3 L D (11.0-16.0) g/dL Hct 31.3 L (34.0-47.0) % MCV 84.8 D (81.0-99.0) fL MCH 27.9 (27.0-31.0) pg MCHC 32.8 L (33.0-37.0) g/dL RDW 16.5 H (11.5-14.5) % Plt Count 118 L (130-400) K/uL MPV 11.0 (7.2-11.7) fL Neut % (Auto) (50.0-75.0) % Lymph % (Auto) (20.0-40.0) % [place] % (Auto) (0.0-10.0) % Eos % (Auto) (0.0-4.0) % Baso % (Auto) (0.0-2.0) % Neut # (Auto) (1.8-7.0) K/uL Lymph # (Auto) (1.0-4.3) K/uL [place] # (Auto) (0.0-0.8) K/uL Eos # (Auto) (0.0-0.7) K/uL Baso # (Auto) (0.0-0.2) K/uL Neutrophils % (Manual) (50-75) % Lymphocytes % (Manual) (20-40) % Monocytes % (Manual) (0-10) % Platelet Estimate (NORMAL) Large Platelets Giant Platelets Hypochromasia (manual) Poikilocytosis (manual Anisocytosis (manual) Target Cells Stomatocytes Smear Path Review Sodium 136 (132-148) mmol/L Potassium 3.4 L (3.6-5.2) mmol/L Chloride 98 (98-107) mmol/L Carbon Dioxide 32 H (22-30) mmol/L Anion Gap 9 L (10-20) BUN 23 H (7-17) mg/dL Creatinine 1.4 H (0.7-1.2) mg/dL Est GFR ( Amer) 44 Est GFR (Non-Af Amer) 36 POC Glucose (mg/dL) 190 H (65-110) mg/dL Random Glucose 134 H D (65-105) mg/dL Calcium 8.4 L (8.6-10.4) mg/dl Phosphorus 2.5 (2.5-4.5) mg/dL Magnesium 2.0 (1.6-2.3) mg/dL Total Bilirubin 1.0 (0.2-1.3) mg/dL AST 26 (14-36) U/L ALT 17 (9-52) U/L Alkaline Phosphatase 121 (38-126) U/L Total Protein 6.2 L (6.3-8.3) g/dL Albumin 3.0 L (3.5-5.0) g/dL Globulin 3.3 (2.2-3.9) gm/dL Albumin/Globulin Ratio 0.9 L (1.0-2.1) Blood Type Antibody Screen 07/09/18 07/09/18 07/09/18 Range/Units 13:39 11:13 07:43 WBC 31.7 H (4.8-10.8) K/uL RBC 2.78 L (3.80-5.20) Mil/uL Hgb 7.6 L (11.0-16.0) g/dL Hct 24.2 L (34.0-47.0) % MCV 87.1 (81.0-99.0) fL MCH 27.4 (27.0-31.0) pg MCHC 31.5 L (33.0-37.0) g/dL RDW 17.4 H (11.5-14.5) % Plt Count 108 L D (130-400) K/uL MPV 10.9 (7.2-11.7) fL Neut % (Auto) 96.0 H (50.0-75.0) % Lymph % (Auto) 1.6 L (20.0-40.0) % [place] % (Auto) 2.3 (0.0-10.0) % Eos % (Auto) 0.0 (0.0-4.0) % Baso % (Auto) 0.1 (0.0-2.0) % Neut # (Auto) 30.4 H (1.8-7.0) K/uL Lymph # (Auto) 0.5 L (1.0-4.3) K/uL [place] # (Auto) 0.7 (0.0-0.8) K/uL Eos # (Auto) 0.0 (0.0-0.7) K/uL Baso # (Auto) 0.0 (0.0-0.2) K/uL Neutrophils % (Manual) 97 H (50-75) % Lymphocytes % (Manual) 1 L (20-40) % Monocytes % (Manual) 2 (0-10) % Platelet Estimate Slightly decreased L (NORMAL) Large Platelets Present Giant Platelets Present Hypochromasia (manual) Slight Poikilocytosis (manual Slight Anisocytosis (manual) Slight Target Cells Slight Stomatocytes Slight Smear Path Review Sodium (132-148) mmol/L Potassium (3.6-5.2) mmol/L Chloride (98-107) mmol/L Carbon Dioxide (22-30) mmol/L Anion Gap (10-20) BUN (7-17) mg/dL Creatinine (0.7-1.2) mg/dL Est GFR ( Amer) Est GFR (Non-Af Amer) POC Glucose (mg/dL) 139 H 252 H (65-110) mg/dL Random Glucose (65-105) mg/dL Calcium (8.6-10.4) mg/dl Phosphorus (2.5-4.5) mg/dL Magnesium (1.6-2.3) mg/dL Total Bilirubin (0.2-1.3) mg/dL AST (14-36) U/L ALT (9-52) U/L Alkaline Phosphatase (38-126) U/L Total Protein (6.3-8.3) g/dL Albumin (3.5-5.0) g/dL Globulin (2.2-3.9) gm/dL Albumin/Globulin Ratio (1.0-2.1) Blood Type Antibody Screen 07/09/18 07/08/18 07/07/18 Range/Units 06:44 07:53 07:22 WBC (4.8-10.8) K/uL RBC (3.80-5.20) Mil/uL Hgb (11.0-16.0) g/dL Hct (34.0-47.0) % MCV (81.0-99.0) fL MCH (27.0-31.0) pg MCHC (33.0-37.0) g/dL RDW (11.5-14.5) % Plt Count (130-400) K/uL MPV (7.2-11.7) fL Neut % (Auto) (50.0-75.0) % Lymph % (Auto) (20.0-40.0) % [place] % (Auto) (0.0-10.0) % Eos % (Auto) (0.0-4.0) % Baso % (Auto) (0.0-2.0) % Neut # (Auto) (1.8-7.0) K/uL Lymph # (Auto) (1.0-4.3) K/uL [place] # (Auto) (0.0-0.8) K/uL Eos # (Auto) (0.0-0.7) K/uL Baso # (Auto) (0.0-0.2) K/uL Neutrophils % (Manual) (50-75) % Lymphocytes % (Manual) (20-40) % Monocytes % (Manual) (0-10) % Platelet Estimate (NORMAL) Large Platelets Giant Platelets Hypochromasia (manual) Poikilocytosis (manual Anisocytosis (manual) Target Cells Stomatocytes Smear Path Review Sodium (132-148) mmol/L Potassium (3.6-5.2) mmol/L Chloride (98-107) mmol/L Carbon Dioxide (22-30) mmol/L Anion Gap (10-20) BUN (7-17) mg/dL Creatinine (0.7-1.2) mg/dL Est GFR ( Amer) Est GFR (Non-Af Amer) POC Glucose (mg/dL) 166 H (65-110) mg/dL Random Glucose (65-105) mg/dL Calcium (8.6-10.4) mg/dl Phosphorus (2.5-4.5) mg/dL Magnesium (1.6-2.3) mg/dL Total Bilirubin (0.2-1.3) mg/dL AST (14-36) U/L ALT (9-52) U/L Alkaline Phosphatase (38-126) U/L Total Protein (6.3-8.3) g/dL Albumin (3.5-5.0) g/dL Globulin (2.2-3.9) gm/dL Albumin/Globulin Ratio (1.0-2.1) Blood Type B POSITIVE Antibody Screen Negative Laboratory Results - last 24 hr 07/07/18 07/08/18 07/09/18 07:22 07:53 06:44 WBC RBC Hgb Hct MCV MCH MCHC RDW Plt Count MPV Neut % (Auto) Lymph % (Auto) [place] % (Auto) Eos % (Auto) Baso % (Auto) Neut # (Auto) Lymph # (Auto) [place] # (Auto) Eos # (Auto) Baso # (Auto) Neutrophils % (Manual) Lymphocytes % (Manual) Monocytes % (Manual) Platelet Estimate Large Platelets Giant Platelets Hypochromasia (manual) Poikilocytosis (manual Anisocytosis (manual) Target Cells Stomatocytes Smear Path Review Sodium Potassium Chloride Carbon Dioxide Anion Gap BUN Creatinine Est GFR ( Amer) Est GFR (Non-Af Amer) POC Glucose (mg/dL) 166 H Random Glucose Calcium Phosphorus Magnesium Total Bilirubin AST ALT Alkaline Phosphatase Total Protein Albumin Globulin Albumin/Globulin Ratio Blood Type B POSITIVE Antibody Screen Negative 07/09/18 07/09/18 07/09/18 07:43 11:13 13:39 WBC 31.7 H RBC 2.78 L Hgb 7.6 L Hct 24.2 L MCV 87.1 MCH 27.4 MCHC 31.5 L RDW 17.4 H Plt Count 108 L D MPV 10.9 Neut % (Auto) 96.0 H Lymph % (Auto) 1.6 L [place] % (Auto) 2.3 Eos % (Auto) 0.0 Baso % (Auto) 0.1 Neut # (Auto) 30.4 H Lymph # (Auto) 0.5 L [place] # (Auto) 0.7 Eos # (Auto) 0.0 Baso # (Auto) 0.0 Neutrophils % (Manual) 97 H Lymphocytes % (Manual) 1 L Monocytes % (Manual) 2 Platelet Estimate Slightly decreased L Large Platelets Present Giant Platelets Present Hypochromasia (manual) Slight Poikilocytosis (manual Slight Anisocytosis (manual) Slight Target Cells Slight Stomatocytes Slight Smear Path Review Sodium Potassium Chloride Carbon Dioxide Anion Gap BUN Creatinine Est GFR ( Amer) Est GFR (Non-Af Amer) POC Glucose (mg/dL) 252 H 139 H Random Glucose Calcium Phosphorus Magnesium Total Bilirubin AST ALT Alkaline Phosphatase Total Protein Albumin Globulin Albumin/Globulin Ratio Blood Type Antibody Screen 07/09/18 07/09/18 07/09/18 13:43 13:43 15:58 WBC 35.5 H RBC 3.69 L Hgb 10.3 L D Hct 31.3 L MCV 84.8 D MCH 27.9 MCHC 32.8 L RDW 16.5 H Plt Count 118 L MPV 11.0 Neut % (Auto) Lymph % (Auto) [place] % (Auto) Eos % (Auto) Baso % (Auto) Neut # (Auto) Lymph # (Auto) [place] # (Auto) Eos # (Auto) Baso # (Auto) Neutrophils % (Manual) Lymphocytes % (Manual) Monocytes % (Manual) Platelet Estimate Large Platelets Giant Platelets Hypochromasia (manual) Poikilocytosis (manual Anisocytosis (manual) Target Cells Stomatocytes Smear Path Review Sodium 136 Potassium 3.4 L Chloride 98 Carbon Dioxide 32 H Anion Gap 9 L BUN 23 H Creatinine 1.4 H Est GFR ( Amer) 44 Est GFR (Non-Af Amer) 36 POC Glucose (mg/dL) 190 H Random Glucose 134 H D Calcium 8.4 L Phosphorus 2.5 Magnesium 2.0 Total Bilirubin 1.0 AST 26 ALT 17 Alkaline Phosphatase 121 Total Protein 6.2 L Albumin 3.0 L Globulin 3.3 Albumin/Globulin Ratio 0.9 L Blood Type Antibody Screen 07/09/18 07/10/18 07/10/18 21:13 06:22 06:24 WBC 28.6 H RBC 3.45 L Hgb 9.5 L Hct 30.1 L MCV 87.2 D MCH 27.5 MCHC 31.5 L RDW 17.0 H Plt Count 91 L D MPV 11.4 Neut % (Auto) 95.5 H Lymph % (Auto) 1.9 L [place] % (Auto) 2.4 Eos % (Auto) 0.0 Baso % (Auto) 0.2 Neut # (Auto) 27.2 H Lymph # (Auto) 0.5 L [place] # (Auto) 0.7 Eos # (Auto) 0.0 Baso # (Auto) 0.1 Neutrophils % (Manual) Lymphocytes % (Manual) Monocytes % (Manual) Platelet Estimate Large Platelets Giant Platelets Hypochromasia (manual) Poikilocytosis (manual Anisocytosis (manual) Target Cells Stomatocytes Smear Path Review Sodium 134 Potassium 5.2 Chloride 99 Carbon Dioxide 28 Anion Gap 12 BUN 55 H Creatinine 2.6 H Est GFR ( Amer) 21 Est GFR (Non-Af Amer) 18 POC Glucose (mg/dL) 333 H Random Glucose 268 H D Calcium 7.9 L Phosphorus 4.1 Magnesium 2.3 Total Bilirubin 0.8 AST 34 ALT 7 L D Alkaline Phosphatase 99 Total Protein 5.8 L Albumin 2.8 L Globulin 3.0 Albumin/Globulin Ratio 0.9 L Blood Type Antibody Screen EKG/Cardiology Studies: Cardiology / EKG Studies 07/09/18 13:19 EKG [ELECTROCARDIOGRAM] Stat Comment: Mode Of Transportation: Reason For Exam: elevated heart rate Fingerstick Blood Sugar Results: 333 Review of Systems - Review of Systems All systems: reviewed and no additional remarkable complaints except - Cardiovascular Cardiovascular: Dyspnea, Palpitations - Respiratory Respiratory: absent: Cough, Wheezing Critical Care Progress Note - Nutrition Nutrition: Nutrition Category Date Time Status Renal Diet [DIET] Diets 06/26/18 Breakfast Active Assessment/Plan - Assessment and Plan (Free Text) Assessment: 83 y o female with PMhx HTN, hypothyroidism, A-fib, DM, anemia, multiple myeloma, CHF, and COPD who presented on this current admission with hypergl ycemia and was admitted to medical floor for further management. S/p [employer] on 06/26/18 for tachycardia s/p HD, which required admission to ICU for A-fib with RVR. Was called to eval pt today s/p [employer] for tachycardia during HD on 07/09/18, rhythm strip demonstrated A-fib with RVR. Pt currently being monitored ICU, currently on Cardizem gtt, wean down as pt tolerates. Plan: Neuro: -AAOx3, no gross deficits on exam, will cont to monitor Cardio: -Afib with RVR S/p [employer] on 06/26/18, EKG during [employer] demonstrated Afib with RVR S/p [employer] on 07/09/18 for A-fib with RVR, c/w Cardizem gtt, pt tachycardic Cardizem 240 mg PO daily S/p Cardizem IVPs without improvement in HR C/w home med Eliquis 2.5 mg renally dosed Cardiology consulted (Dr. Gold), recs appreciated Trop 0.03 -Hx HTN, CHF BNP elevated on admission -Cont to monitor Pulm: -Hx COPD C/w Pulmicort, Spiriva, Fluticasone -Robitussin prn for cough -Recent CXR 07/07: no active disease -Pulm consulted (Dr. Mai), recs appreciated GI: -Renal diet -Pepcid -Has not had BM x5 days, Miralax and Colace added today, cont to monitor bowel function Renal: -Hx ESRD on HD MWF C/w HD while inpatient -Nephro (Dr. Bill) consulted, recs appreciated -EPO MWF Heme: -H/H 9.5/30.1, stable, cont to monitor -EPO started -Iron studies demonstrate deficiency -Leukocytosis trending up ID: -Leukocytosis trending up -Afebrile -S/p Azithromycin and Cefepime for tx of PNA; on no current anbx regimen at this time -Flu swab neg -ID consulted (Dr. Luong), recs appreciated Endo: -Hx hypothyroidism C/w Synthroid 150 mcg daily -Hx DM, admitted for hyperglycemia during this current admission Insulin aspart 20 U sc acbd Levemir 12 U sc q12h Glipizide 10 mg PO acbd ISS Fingersticks achs Hypoglycemic protocol A1c 8.5 PPX: -Pepcid, SCD, Eliquis renally dosed Pt seen, examined with, and plan discussed with Dr. Kessler, attending physician. Mandeep Garduno DO PGY-1, [employer] Pager #[phone] <Pepe Kessler S - Last Filed: 07/10/18 16:50> CCU Subjective - Physician Review Critical Care Time Spent (in minutes): 40 CCU Objective - Vital Signs / Intake & Output Intake and Output (Last 8hrs): Intake & Output 07/10/18 07/10/18 07/10/18 06:59 14:59 22:59 Intake Total 265 350 Balance 265 350 Weight 144 lb 12.8 oz Intake: IV 125 Intake, IV Amount 80 70 Right Antecubital 80 70 Oral 60 280 Other: # Voids Urine, Voided 0 0 # Bowel Movements 0 1 - Medications Active Medications: Active Medications Generic Name Dose Route Start Last Admin Trade Name Freq PRN Reason Stop Dose Admin Acetaminophen 650 mg 06/26/18 16:06 06/26/18 18:19 Tylenol 325mg Tab PO 650 mg Q6 PRN Administration Fever >100.4 F Alprazolam 0.25 mg 07/06/18 18:39 07/08/18 10:35 Xanax PO 07/13/18 18:40 0.25 mg BID PRN Administration Anxiety Apixaban 2.5 mg 07/05/18 14:30 07/09/18 15:48 Eliquis PO 2.5 mg Q48H MARIBETH Administration Budesonide 0.25 mg 07/07/18 20:00 07/10/18 08:20 Pulmicort Respules IH 0.25 mg RBID MARIBETH Administration Calcium Acetate 1,334 mg 07/08/18 17:00 07/10/18 10:40 Phoslo PO 1,334 mg TIDCC MARIBETH Administration Diltiazem HCl 240 mg 07/02/18 10:00 07/10/18 10:47 Cardizem Cd PO 240 mg DAILY MARIBETH Administration Docusate Sodium 100 mg 07/10/18 11:30 Colace PO BID MARIBETH Epoetin Eddie 10,000 unit 06/28/18 13:30 07/10/18 10:08 Procrit IV 10,000 unit MWF MARIBETH Administration Famotidine 20 mg 06/26/18 10:00 07/10/18 10:40 Pepcid PO 20 mg DAILY MARIBETH Administration Fluticasone/Vilanterol 1 puff 06/26/18 08:00 07/10/18 11:34 Breo Ellipta 200-25 Mcg Inh INH 1 puff RQD MARIBETH Administration Glipizide 10 mg 06/26/18 07:30 07/10/18 10:43 Glucotrol PO 10 mg ACBD MARIBETH Administration Guaifenesin/Dextromethorphan 10 ml 06/26/18 16:07 07/04/18 16:59 Robitussin Dm PO 10 ml Q4H PRN Administration Cough and congestion Home Med 1 drop 07/11/18 10:00 Patient's Own Drops OD DAILY MARIBETH Diltiazem HCl 125 mg/ Sodium 125 mls @ 10 mls/hr 07/09/18 13:45 07/10/18 02:00 Chloride IV Not Given .[id number] MARIBETH Protocol 10 MG/HR Insulin Aspart 10 unit 06/25/18 23:00 Novolog SC ONCE MARIBETH Insulin Aspart 0 unit 06/26/18 07:30 07/10/18 10:40 Novolog SC 8 units ACHS MARIBETH Administration Protocol Insulin Detemir 12 unit 06/25/18 23:00 07/10/18 11:18 Levemir SC 12 units Q12H MARIBETH Administration Levothyroxine Sodium 150 mcg 06/26/18 06:30 07/10/18 07:07 Synthroid PO 150 mcg DAILY@0630 MARIBETH Administration Polyethylene Glycol 17 gm 07/10/18 16:30 Miralax PO DAILY PRN Constipation Promethazine HCl/Codeine 10 ml 07/02/18 16:06 07/08/18 10:36 Phenergan/Codeine Oral Syrup PO 10 ml Q8H PRN Administration Cough Rosuvastatin Calcium 5 mg 06/25/18 23:00 07/09/18 22:12 Crestor PO 5 mg HS MARIBETH Administration Tiotropium [place] 18 mcg 06/26/18 08:00 07/10/18 11:35 Spiriva INH 18 mcg RQ24 MARIBETH Administration - Patient Studies Lab Studies: Microbiology Studies 07/08/18 15:04 Blood Culture - Preliminary Blood NO GROWTH AFTER 48 HOURS 07/08/18 14:45 Blood Culture - Preliminary Blood NO GROWTH AFTER 48 HOURS 07/10/18 06:32 Gram Stain - Final Sputum Lab Studies 07/10/18 07/10/18 07/10/18 Range/Units 11:12 07:40 06:24 WBC 28.6 H (4.8-10.8) K/uL RBC 3.45 L (3.80-5.20) Mil/uL Hgb 9.5 L (11.0-16.0) g/dL Hct 30.1 L (34.0-47.0) % MCV 87.2 D (81.0-99.0) fL MCH 27.5 (27.0-31.0) pg MCHC 31.5 L (33.0-37.0) g/dL RDW 17.0 H (11.5-14.5) % Plt Count 91 L D (130-400) K/uL MPV 11.4 (7.2-11.7) fL Neut % (Auto) 95.5 H (50.0-75.0) % Lymph % (Auto) 1.9 L (20.0-40.0) % [place] % (Auto) 2.4 (0.0-10.0) % Eos % (Auto) 0.0 (0.0-4.0) % Baso % (Auto) 0.2 (0.0-2.0) % Neut # (Auto) 27.2 H (1.8-7.0) K/uL Lymph # (Auto) 0.5 L (1.0-4.3) K/uL [place] # (Auto) 0.7 (0.0-0.8) K/uL Eos # (Auto) 0.0 (0.0-0.7) K/uL Baso # (Auto) 0.1 (0.0-0.2) K/uL Neutrophils % (Manual) 97 H (50-75) % Lymphocytes % (Manual) 2 L (20-40) % Monocytes % (Manual) 1 (0-10) % Platelet Estimate Decreased L (NORMAL) Polychromasia Slight Hypochromasia (manual) Slight Anisocytosis (manual) Slight Sodium (132-148) mmol/L Potassium (3.6-5.2) mmol/L Chloride (98-107) mmol/L Carbon Dioxide (22-30) mmol/L Anion Gap (10-20) BUN (7-17) mg/dL Creatinine (0.7-1.2) mg/dL Est GFR ( Amer) Est GFR (Non-Af Amer) POC Glucose (mg/dL) 224 H 306 H (65-110) mg/dL Random Glucose (65-105) mg/dL Calcium (8.6-10.4) mg/dl Phosphorus (2.5-4.5) mg/dL Magnesium (1.6-2.3) mg/dL Total Bilirubin (0.2-1.3) mg/dL AST (14-36) U/L ALT (9-52) U/L Alkaline Phosphatase (38-126) U/L Total Protein (6.3-8.3) g/dL Albumin (3.5-5.0) g/dL Globulin (2.2-3.9) gm/dL Albumin/Globulin Ratio (1.0-2.1) 07/10/18 07/09/18 07/09/18 Range/Units 06:22 21:13 06:44 WBC (4.8-10.8) K/uL RBC (3.80-5.20) Mil/uL Hgb (11.0-16.0) g/dL Hct (34.0-47.0) % MCV (81.0-99.0) fL MCH (27.0-31.0) pg MCHC (33.0-37.0) g/dL RDW (11.5-14.5) % Plt Count (130-400) K/uL MPV (7.2-11.7) fL Neut % (Auto) (50.0-75.0) % Lymph % (Auto) (20.0-40.0) % [place] % (Auto) (0.0-10.0) % Eos % (Auto) (0.0-4.0) % Baso % (Auto) (0.0-2.0) % Neut # (Auto) (1.8-7.0) K/uL Lymph # (Auto) (1.0-4.3) K/uL [place] # (Auto) (0.0-0.8) K/uL Eos # (Auto) (0.0-0.7) K/uL Baso # (Auto) (0.0-0.2) K/uL Neutrophils % (Manual) (50-75) % Lymphocytes % (Manual) (20-40) % Monocytes % (Manual) (0-10) % Platelet Estimate (NORMAL) Polychromasia Hypochromasia (manual) Anisocytosis (manual) Sodium 134 (132-148) mmol/L Potassium 5.2 (3.6-5.2) mmol/L Chloride 99 (98-107) mmol/L Carbon Dioxide 28 (22-30) mmol/L Anion Gap 12 (10-20) BUN 55 H (7-17) mg/dL Creatinine 2.6 H (0.7-1.2) mg/dL Est GFR ( Amer) 21 Est GFR (Non-Af Amer) 18 POC Glucose (mg/dL) 333 H 166 H (65-110) mg/dL Random Glucose 268 H D (65-105) mg/dL Calcium 7.9 L (8.6-10.4) mg/dl Phosphorus 4.1 (2.5-4.5) mg/dL Magnesium 2.3 (1.6-2.3) mg/dL Total Bilirubin 0.8 (0.2-1.3) mg/dL AST 34 (14-36) U/L ALT 7 L D (9-52) U/L Alkaline Phosphatase 99 (38-126) U/L Total Protein 5.8 L (6.3-8.3) g/dL Albumin 2.8 L (3.5-5.0) g/dL Globulin 3.0 (2.2-3.9) gm/dL Albumin/Globulin Ratio 0.9 L (1.0-2.1) Laboratory Results - last 24 hr 07/09/18 07/09/18 07/10/18 06:44 21:13 06:22 WBC RBC Hgb Hct MCV MCH MCHC RDW Plt Count MPV Neut % (Auto) Lymph % (Auto) [place] % (Auto) Eos % (Auto) Baso % (Auto) Neut # (Auto) Lymph # (Auto) [place] # (Auto) Eos # (Auto) Baso # (Auto) Neutrophils % (Manual) Lymphocytes % (Manual) Monocytes % (Manual) Platelet Estimate Polychromasia Hypochromasia (manual) Anisocytosis (manual) Sodium 134 Potassium 5.2 Chloride 99 Carbon Dioxide 28 Anion Gap 12 BUN 55 H Creatinine 2.6 H Est GFR ( Amer) 21 Est GFR (Non-Af Amer) 18 POC Glucose (mg/dL) 166 H 333 H Random Glucose 268 H D Calcium 7.9 L Phosphorus 4.1 Magnesium 2.3 Total Bilirubin 0.8 AST 34 ALT 7 L D Alkaline Phosphatase 99 Total Protein 5.8 L Albumin 2.8 L Globulin 3.0 Albumin/Globulin Ratio 0.9 L 07/10/18 07/10/18 07/10/18 06:24 07:40 11:12 WBC 28.6 H RBC 3.45 L Hgb 9.5 L Hct 30.1 L MCV 87.2 D MCH 27.5 MCHC 31.5 L RDW 17.0 H Plt Count 91 L D MPV 11.4 Neut % (Auto) 95.5 H Lymph % (Auto) 1.9 L [place] % (Auto) 2.4 Eos % (Auto) 0.0 Baso % (Auto) 0.2 Neut # (Auto) 27.2 H Lymph # (Auto) 0.5 L [place] # (Auto) 0.7 Eos # (Auto) 0.0 Baso # (Auto) 0.1 Neutrophils % (Manual) 97 H Lymphocytes % (Manual) 2 L Monocytes % (Manual) 1 Platelet Estimate Decreased L Polychromasia Slight Hypochromasia (manual) Slight Anisocytosis (manual) Slight Sodium Potassium Chloride Carbon Dioxide Anion Gap BUN Creatinine Est GFR ( Amer) Est GFR (Non-Af Amer) POC Glucose (mg/dL) 306 H 224 H Random Glucose Calcium Phosphorus Magnesium Total Bilirubin AST ALT Alkaline Phosphatase Total Protein Albumin Globulin Albumin/Globulin Ratio Critical Care Progress Note - Nutrition Nutrition: Nutrition Category Date Time Status Renal Diet [DIET] Diets 06/26/18 Breakfast Active Attending/Attestation - Attestation I have personally seen and examined this patient.: Yes I have fully participated in the care of the patient.: Yes I have reviewed all pertinent clinical information: Yes Notes (Text): 07/10/18 16:49 Patient seen and examined in the intensive care unit. Case discussed with housestaff in the morning rounds. Patient became tachypneic and tachycardic during dialysis so dialysis had to be terminated Taper off Cardizem drip as tolerated Seen by oncology Continue ICU observation for now
--- NOTE | 2018-07-10 08:00 | CP.PCM.PN ---
Subjective - Date & Time of Evaluation Date of Evaluation: 07/10/18 Time of Evaluation: 07:58 - Subjective Subjective: transferred to ICU for afib with RVR on Cardizem drip lying flat chronically ill c/o weakness muscle pain chronic dyspnea +cough no fever no urine no n/v/d no rash no arthralgias Objective - Vital Signs/Intake and Output Vital Signs (last 24 hours): Temp Pulse Resp BP Pulse Ox 97.8 F 112 H 26 H 124/61 93 L 07/10/18 04:00 07/10/18 04:04 07/10/18 04:04 07/10/18 04:04 07/10/18 04:04 Intake and Output: 07/10/18 07/10/18 06:59 18:59 Intake Total 335 40 Balance 335 40 - Medications Medications: Current Medications Acetaminophen (Tylenol 325mg Tab) 650 mg PO Q6 PRN PRN Reason: Fever >100.4 F Last Admin: 06/26/18 18:19 Dose: 650 mg Alprazolam (Xanax) 0.25 mg PO BID PRN PRN Reason: Anxiety Stop: 07/13/18 18:40 Last Admin: 07/08/18 10:35 Dose: 0.25 mg Apixaban (Eliquis) 2.5 mg PO Q48H [facility] Last Admin: 07/09/18 15:48 Dose: 2.5 mg Budesonide (Pulmicort Respules) 0.25 mg IH RBID [facility] Last Admin: 07/09/18 08:41 Dose: 0.25 mg Calcium Acetate (Phoslo) 1,334 mg PO TIDCC [facility] Last Admin: 07/09/18 16:38 Dose: 1,334 mg Diltiazem HCl (Cardizem Cd) 240 mg PO DAILY [facility] Last Admin: 07/09/18 14:30 Dose: Not Given Epoetin Eddie (Procrit) 10,000 unit IV MWF [facility] Last Admin: 07/08/18 17:50 Dose: 10,000 unit Famotidine (Pepcid) 20 mg PO DAILY [facility] Last Admin: 07/09/18 10:00 Dose: Not Given Fluticasone/Vilanterol (Breo Ellipta 200-25 Mcg Inh) 1 puff INH RQD [facility] Last Admin: 07/09/18 08:38 Dose: 1 puff Glipizide (Glucotrol) 10 mg PO ACBD [facility] Last Admin: 07/09/18 15:47 Dose: 10 mg Guaifenesin/Dextromethorphan (Robitussin Dm) 10 ml PO Q4H PRN PRN Reason: Cough and congestion Last Admin: 07/04/18 16:59 Dose: 10 ml Home Med (Patient's Own Drops) 1 drop OD DAILY [facility] Last Admin: 07/09/18 10:00 Dose: Not Given Diltiazem HCl 125 mg/ Sodium (Chloride) 125 mls @ 10 mls/hr IV .[id number] [facility]; Protocol Last Admin: 07/10/18 02:00 Dose: Not Given Insulin Aspart (Novolog) 10 unit SC ONCE [facility] Insulin Aspart (Novolog) 0 unit SC ACHS [facility]; Protocol Last Admin: 07/09/18 22:13 Dose: 2 units Insulin Detemir (Levemir) 12 unit SC Q12H [facility] Last Admin: 07/09/18 22:13 Dose: 12 units Levothyroxine Sodium (Synthroid) 150 mcg PO DAILY@0630 [facility] Last Admin: 07/10/18 07:07 Dose: 150 mcg Promethazine HCl/Codeine (Phenergan/Codeine Oral Syrup) 10 ml PO Q8H PRN PRN Reason: Cough Last Admin: 07/08/18 10:36 Dose: 10 ml Rosuvastatin Calcium (Crestor) 5 mg PO HS [facility] Last Admin: 07/09/18 22:12 Dose: 5 mg Tiotropium [place] (Spiriva) 18 mcg INH RQ24 [facility] Last Admin: 07/09/18 08:41 Dose: 18 mcg - Labs Labs: 07/10/18 06:24 07/10/18 06:22 - Constitutional Appears: No Acute Distress, Chronically Ill - Head Exam Head Exam: ATRAUMATIC, NORMAL INSPECTION - Eye Exam Eye Exam: EOMI - ENT Exam ENT Exam: Mucous Membranes Moist - Neck Exam Neck Exam: Full ROM. absent: Lymphadenopathy - Respiratory Exam Respiratory Exam: Rhonchi. absent: Wheezes - Cardiovascular Exam Cardiovascular Exam: Tachycardia. absent: Rubs - GI/Abdominal Exam GI & Abdominal Exam: Distended, Soft. absent: Tenderness - Extremities Exam Extremities Exam: absent: Pedal Edema - Neurological Exam Neurological Exam: Alert, Awake, Oriented x3 Assessment and Plan - Assessment and Plan (Free Text) Assessment: HD today continue management of SVT pulmonary toilet PT when able
[2018-07-10] MEDS: Budesonide 0.25 mg/2 ml Inhal Susp UD IH SCH ×2 (08:20→19:39)
[2018-07-10] MEDS: Epoetin Alfa 10,000 unit/ml Dialysis IV SCH (10:08)
[2018-07-10] MEDS: (Novolog) Insulin Aspart, Recombinant 100 u/ml 10 ml vial SC SCH ×3 (10:40→21:32)
[2018-07-10] MEDS: diltiaZEM 240 mg/24 Hours CD Cap PO SCH (10:47)
[2018-07-10 11:11] LABS: ANISOCYTOSIS SLIGHT; HYPOCHROMIC SLIGHT; LYMPHOCYTE 2 % (20-40); MONOCYTE 1 % (0-10); NEUTROPHIL 97 % (50-75); PLATELET ESTIMATE DECREASED (NORMAL); POLYCHROMIC SLIGHT; TOTAL CELLS COUNTED 100
[2018-07-10] MEDS: BROMFENAC 0.07% OD SCH (11:17)
[2018-07-10] MEDS: Insulin Detemir 100 units/ml Vial (Levemir) SC SCH ×2 (11:18→23:12)
[2018-07-10] MEDS ORDERED: POLYETHYLENE GLYCOL 3350 17 GM/Dose PACKET PO SCH (11:30)
[2018-07-10] MEDS: Fluticasone-Vilanterol 200/25mcg Diskus INH SCH (11:34)
[2018-07-10] MEDS: Tiotropium 18 mcg Cap For Inhalation INH SCH (11:35)
[2018-07-10] MEDS: POLYETHYLENE GLYCOL 3350 17 GM/Dose PACKET PO PRN (12:10)
--- NOTE | 2018-07-10 13:06 | CP.PCM.CON ---
History of Present Illness - History of Present Illness History of Present Illness: Palliative consult requested by Doctor Meek for goals of care/POLST discussion Patient is a 83 yo female admitted with SOB X couple of weeks and blood sugar > 400. Patient was discharged on May 2018 after being treated here for UTI and Influenza. EKG, VBG and CXR ordred. Blood sugar normalized with Insulin. Patient diagnosed with Pulmonary venous congestion. HD continued as per schedule. Since admission DIRECTOR OF EXHIBIT DEVELOPMENT called twice both time for tachycardia , HR > 200. Last DIRECTOR OF EXHIBIT DEVELOPMENT called yesterday during HD for arrhythmia and tachycardia. Cardizem drip initiared and patient transferred to ICU. WBC 35.0 on admission, ID consult called, taught it was due to IV steroids, patient treated empirically. WBC 28.8 today. This morning patient could not tolerate the full length of HD due to low BP . POLST on chart, indicates DNI only. POLST is not signed by the MD/SOCIAL WORK ADMINISTRATOR, therefore is not valid. PMH: COPD, CHF, DM, ESRD on HD, A Fib, multiple myeloma, uses O2 at home Soc. Hx: single, lives at home, brother is a closest family member Fam. Hx: unknown Review of Systems - Constitutional Constitutional: Daytime Sleepiness, Fatigue, Malaise, Weakness - EENT Eyes: absent: As Per HPI, Blind Spots, Blurred Vision, Change in Vision, Decreased Night Vision, Diplopia, Discharge, Dry Eye, Exophthalmos, Floaters, Irritation, Itchy Eyes, Loss of Peripheral Vision, Pain, Photophobia, Requires Corrective Lenses, Sees Flashes, Spots in Vision, Tunnel Vision, Other Visual Disturbances, Loss of Vision, Other Ears: absent: As Per HPI, Decreased Hearing, Ear Discharge, Ear Pain, Tinnitus, Abnormal Hearing, Disequilibrium, Dizziness, Other Nose/Mouth/Throat: absent: As Per HPI, Epistaxis, Nasal Congestion, Nasal Discharge, Nasal Obstruction, Nasal Trauma, Nose Pain, Post Nasal Drip, Sinus Pain, Sinus Pressure, Bleeding Gums, Change in Voice, Dental Pain, Dry Mouth, Dysphagia, Halitosis, Hoarsness, Lip Swelling, Mouth Lesions, Mouth Pain, Odynophagia, Sore Throat, Throat Swelling, Tongue Swelling, Facial Pain, Neck Pain, Neck Mass, Other - Breasts Breasts: absent: As Per HPI, Change in Shape, Mass, Pain, Nipple Discharge, Nipple Inversion, Skin Changes, Swelling, Other - Cardiovascular Cardiovascular: Dyspnea on Exertion, Pedal Edema, Rapid Heart Rate - Respiratory Respiratory: Dyspnea on Exertion - Gastrointestinal Gastrointestinal: absent: As Per HPI, Abdominal Pain, Belching, Bloating, Change in Bowel Habits, Change in Stool Character, Coffee Ground Emesis, Constipation, Cramping, Diarrhea, Dyspepsia, Dysphagia, Early Satiety, Excessive Flatus, Fecal Incontinence, Heartburn, Hematemesis, Hematochezia, Loose Stools, Melena, Nausea, Odynophagia, Temesmus, Vomiting, Other - Genitourinary Genitourinary: absent: As Per HPI, Change in Urinary Stream, Difficulty Urinat ing, Dysuria, Flank Pain, Hematuria, Pyuria, Nocturia, Urinary Incontinence, Urinary Frequency, Urinary Hesitance, Urinary Urgency, Voiding Freq/Small Amts, Freq UTI, Hx Renal/Bladder Calculi, Hx /Renal Surgery, Bladder Distension, Other - Reproductive: Female Reproductive:Female: Post Menopausal - Menstruation Menstruation: Post Menopausal - Musculoskeletal Musculoskeletal: Muscle Weakness - Integumentary Integumentary: Dry Skin - Neurological Neurological: Weakness - Psychiatric Psychiatric: Anxiety - Endocrine Endocrine: Change in Body Appearance - Hematologic/Lymphatic Hematologic: absent: As Per HPI, Easy Bleeding, Easy Bruising, Lymphadenopathy, Other Past Patient History - Infectious Disease Hx of Infectious Diseases: None - Past Medical History & Family History Past Medical History?: Yes - Past Social History Smoking Status: Former Smoker - CARDIAC Hx Cardiac Disorders: Yes Hx Congestive Heart Failure: Yes Hx Hypercholesterolemia: Yes Hx Hypertension: Yes - PULMONARY Hx Chronic Obstructive Pulmonary Disease (COPD): Yes - NEUROLOGICAL Hx Neurological Disorder: No - HEENT Hx HEENT Problems: Yes Hx Cataracts: Yes (bilateral) - RENAL Hx Renal Failure: Yes - ENDOCRINE/METABOLIC Hx Diabetes Mellitus Type 1: Yes Hx Diabetes Mellitus Type 2: Yes Hx Hypothyroidism: Yes - HEMATOLOGICAL/ONCOLOGICAL Hx Blood Disorders: Yes Hx Anemia: Yes Other/Comment: Multiple Myeloma - INTEGUMENTARY Hx Dermatological Problems: No Hx Basil Cell: No Hx Padilla: No Hx Cellulitis: No Hx Eczema: No Hx Melanoma: No Hx Squamous Cell: No - MUSCULOSKELETAL/RHEUMATOLOGICAL Hx Arthritis: Yes - GASTROINTESTINAL Hx Gastrointestinal Disorders: Yes Hx Hemorrhoids: Yes - GENITOURINARY/GYNECOLOGICAL Hx Genitourinary Disorders: No - PSYCHIATRIC Hx Psychophysiologic Disorder: No Hx Substance Use: No - SURGICAL HISTORY Hx Surgeries: Yes Hx Arteriovenous Shunt: Yes (LEFT ARM AV ,permacath) Hx Vascular Access Device: Yes (perma cath elaina cath) - ANESTHESIA Hx Anesthesia: Yes Hx Anesthesia Reactions: No Hx Malignant Hyperthermia: No Has any member of the family had a problem w/ anesthesia?: No Meds Allergies/Adverse Reactions: Allergies Allergy/AdvReac Type Severity Reaction Status Date / Time No Known Allergies Allergy Verified 06/25/18 14:25 - Medications Medications: Current Medications Acetaminophen (Tylenol 325mg Tab) 650 mg PO Q6 PRN PRN Reason: Fever >100.4 F Last Admin: 06/26/18 18:19 Dose: 650 mg Alprazolam (Xanax) 0.25 mg PO BID PRN PRN Reason: Anxiety Stop: 07/13/18 18:40 Last Admin: 07/08/18 10:35 Dose: 0.25 mg Apixaban (Eliquis) 2.5 mg PO Q48H [facility] Last Admin: 07/09/18 15:48 Dose: 2.5 mg Budesonide (Pulmicort Respules) 0.25 mg IH RBID [facility] Last Admin: 07/10/18 08:20 Dose: 0.25 mg Calcium Acetate (Phoslo) 1,334 mg PO TIDCC [facility] Last Admin: 07/10/18 10:40 Dose: 1,334 mg Diltiazem HCl (Cardizem Cd) 240 mg PO DAILY [facility] Last Admin: 07/10/18 10:47 Dose: 240 mg Docusate Sodium (Colace) 100 mg PO BID [facility] Epoetin Eddie (Procrit) 10,000 unit IV MWF [facility] Last Admin: 07/10/18 10:08 Dose: 10,000 unit Famotidine (Pepcid) 20 mg PO DAILY [facility] Last Admin: 07/10/18 10:40 Dose: 20 mg Fluticasone/Vilanterol (Breo Ellipta 200-25 Mcg Inh) 1 puff INH RQD [facility] Last Admin: 07/10/18 11:34 Dose: 1 puff Glipizide (Glucotrol) 10 mg PO ACBD [facility] Last Admin: 07/10/18 10:43 Dose: 10 mg Guaifenesin/Dextromethorphan (Robitussin Dm) 10 ml PO Q4H PRN PRN Reason: Cough and congestion Last Admin: 07/04/18 16:59 Dose: 10 ml Home Med (Patient's Own Drops) 1 drop OD DAILY [facility] Last Admin: 07/10/18 11:17 Dose: 1 drop Diltiazem HCl 125 mg/ Sodium (Chloride) 125 mls @ 10 mls/hr IV .[id number] [facility]; Protocol Last Admin: 07/10/18 02:00 Dose: Not Given Insulin Aspart (Novolog) 10 unit SC ONCE [facility] Insulin Aspart (Novolog) 0 unit SC ACHS [facility]; Protocol Last Admin: 07/10/18 10:40 Dose: 8 units Insulin Detemir (Levemir) 12 unit SC Q12H [facility] Last Admin: 07/10/18 11:18 Dose: 12 units Levothyroxine Sodium (Synthroid) 150 mcg PO DAILY@0630 [facility] Last Admin: 07/10/18 07:07 Dose: 150 mcg Polyethylene Glycol (Miralax) 17 gm PO DAILY [facility] Promethazine HCl/Codeine (Phenergan/Codeine Oral Syrup) 10 ml PO Q8H PRN PRN Reason: Cough Last Admin: 07/08/18 10:36 Dose: 10 ml Rosuvastatin Calcium (Crestor) 5 mg PO HS [facility] Last Admin: 07/09/18 22:12 Dose: 5 mg Tiotropium [place] (Spiriva) 18 mcg INH RQ24 [facility] Last Admin: 07/10/18 11:35 Dose: 18 mcg Physical Exam - Constitutional Appears: No Acute Distress, Chronically Ill - Head Exam Head Exam: ATRAUMATIC, NORMAL INSPECTION, NORMOCEPHALIC - Eye Exam Eye Exam: EOMI, Normal appearance, PERRL Pupil Exam: NORMAL ACCOMODATION, PERRL - ENT Exam ENT Exam: Mucous Membranes Moist, Normal Exam - Neck Exam Neck exam: Positive for: Normal Inspection - Respiratory Exam Respiratory Exam: Decreased Breath Sounds, NORMAL BREATHING PATTERN - Cardiovascular Exam Cardiovascular Exam: Tachycardia, Irregular Rhythm - GI/Abdominal Exam GI & Abdominal Exam: Normal Bowel Sounds, Soft - Rectal Exam Rectal Exam: Deferred - Extremities Exam Extremities exam: Positive for: normal capillary refill, pedal edema, pedal pulses present - Back Exam Back exam: NORMAL INSPECTION - Neurological Exam Neurological exam: Alert, Oriented x3 - Psychiatric Exam Psychiatric exam: Anxious - Skin Skin Exam: Pallor Results - Vital Signs Recent Vital Signs: Last Vital Signs Temp 98.4 F 07/10/18 12:20 Pulse 126 H 07/10/18 12:20 Resp 24 07/10/18 12:20 BP 89/58 L 07/10/18 12:20 Pulse Ox 97 07/10/18 12:20 - Labs Result Diagrams: 07/10/18 06:24 07/10/18 06:22 Labs: Laboratory Results - last 24 hr 07/09/18 07/09/18 07/09/18 06:44 13:39 13:43 WBC RBC Hgb Hct MCV MCH MCHC RDW Plt Count MPV Neut % (Auto) Lymph % (Auto) [place] % (Auto) Eos % (Auto) Baso % (Auto) Neut # (Auto) Lymph # (Auto) [place] # (Auto) Eos # (Auto) Baso # (Auto) Neutrophils % (Manual) Lymphocytes % (Manual) Monocytes % (Manual) Platelet Estimate Polychromasia Hypochromasia (manual) Anisocytosis (manual) Sodium 136 Potassium 3.4 L Chloride 98 Carbon Dioxide 32 H Anion Gap 9 L BUN 23 H Creatinine 1.4 H Est GFR ( Amer) 44 Est GFR (Non-Af Amer) 36 POC Glucose (mg/dL) 166 H 139 H Random Glucose 134 H D Calcium 8.4 L Phosphorus 2.5 Magnesium 2.0 Total Bilirubin 1.0 AST 26 ALT 17 Alkaline Phosphatase 121 Total Protein 6.2 L Albumin 3.0 L Globulin 3.3 Albumin/Globulin Ratio 0.9 L 07/09/18 07/09/18 07/09/18 13:43 15:58 21:13 WBC 35.5 H RBC 3.69 L Hgb 10.3 L D Hct 31.3 L MCV 84.8 D MCH 27.9 MCHC 32.8 L RDW 16.5 H Plt Count 118 L MPV 11.0 Neut % (Auto) Lymph % (Auto) [place] % (Auto) Eos % (Auto) Baso % (Auto) Neut # (Auto) Lymph # (Auto) [place] # (Auto) Eos # (Auto) Baso # (Auto) Neutrophils % (Manual) Lymphocytes % (Manual) Monocytes % (Manual) Platelet Estimate Polychromasia Hypochromasia (manual) Anisocytosis (manual) Sodium Potassium Chloride Carbon Dioxide Anion Gap BUN Creatinine Est GFR ( Amer) Est GFR (Non-Af Amer) POC Glucose (mg/dL) 190 H 333 H Random Glucose Calcium Phosphorus Magnesium Total Bilirubin AST ALT Alkaline Phosphatase Total Protein Albumin Globulin Albumin/Globulin Ratio 07/10/18 07/10/18 07/10/18 06:22 06:24 07:40 WBC 28.6 H RBC 3.45 L Hgb 9.5 L Hct 30.1 L MCV 87.2 D MCH 27.5 MCHC 31.5 L RDW 17.0 H Plt Count 91 L D MPV 11.4 Neut % (Auto) 95.5 H Lymph % (Auto) 1.9 L [place] % (Auto) 2.4 Eos % (Auto) 0.0 Baso % (Auto) 0.2 Neut # (Auto) 27.2 H Lymph # (Auto) 0.5 L [place] # (Auto) 0.7 Eos # (Auto) 0.0 Baso # (Auto) 0.1 Neutrophils % (Manual) 97 H Lymphocytes % (Manual) 2 L Monocytes % (Manual) 1 Platelet Estimate Decreased L Polychromasia Slight Hypochromasia (manual) Slight Anisocytosis (manual) Slight Sodium 134 Potassium 5.2 Chloride 99 Carbon Dioxide 28 Anion Gap 12 BUN 55 H Creatinine 2.6 H Est GFR ( Amer) 21 Est GFR (Non-Af Amer) 18 POC Glucose (mg/dL) 306 H Random Glucose 268 H D Calcium 7.9 L Phosphorus 4.1 Magnesium 2.3 Total Bilirubin 0.8 AST 34 ALT 7 L D Alkaline Phosphatase 99 Total Protein 5.8 L Albumin 2.8 L Globulin 3.0 Albumin/Globulin Ratio 0.9 L 07/10/18 11:12 WBC RBC Hgb Hct MCV MCH MCHC RDW Plt Count MPV Neut % (Auto) Lymph % (Auto) [place] % (Auto) Eos % (Auto) Baso % (Auto) Neut # (Auto) Lymph # (Auto) [place] # (Auto) Eos # (Auto) Baso # (Auto) Neutrophils % (Manual) Lymphocytes % (Manual) Monocytes % (Manual) Platelet Estimate Polychromasia Hypochromasia (manual) Anisocytosis (manual) Sodium Potassium Chloride Carbon Dioxide Anion Gap BUN Creatinine Est GFR ( Amer) Est GFR (Non-Af Amer) POC Glucose (mg/dL) 224 H Random Glucose Calcium Phosphorus Magnesium Total Bilirubin AST ALT Alkaline Phosphatase Total Protein Albumin Globulin Albumin/Globulin Ratio Assessment & Plan - Assessment and Plan (Free Text) Assessment: Palliative consult Full Code, Copy of POLST on chart is not valid ( uncompleted), PPS 20% I reviewed all medical records, diagnostic studies, examined and interviewed patient in the bed. Patient is alert, oriented X 3, Turkish and [place] speaking, looking chronically ill. Translation to Barbadian was provided, but patient dismissed it and continue to talk in Turkish. Patient appears tired, struggling to keep her eyes open. Skin and sclera pale, Hb 9.5 down from 10.3. There is mild pedal edema, no wounds. Breath sounds diminishd, O2Sat 95 % RA, RR 22, no cough noted, reports dyspnea with activities. Heart rate regular, last reading 126, Cardizem drip on board, SBP 103, HD stopped. Abdomen soft, active bowel sounds, denies abdominal pain, denies constipation. There is active ROM, pedal pulses present, mild pedal edema. [id number] needs max asistance with repositioning, mostly is on bed rest. BP 103/62, afebrile WBC 28.8, Hb 9.5 Goals of care discussed with patient. Her brother just left before I came in. When asked how she felt today patient responded " No good". Patient could not elaborate much about it, as she was falling asleep during this discussion. I was able to maintain patient's attention for a moment longer and questioned her about use of aggressive interventions in case her breathing gets worse. Patient said she would want us to apply all available measures to keep her alive, including CPR and MV support. If she loses ability to talk and make decisions she would want us to talk to her brother. Patient does not remember signing POLST. However, there is a copy of POLST on chart from other facility , without MD/SOCIAL WORK ADMINISTRATOR signature and is not valid. I shared this with ICU team. Impression * CHF exacerbation * Generalized weakness * Limited mobility, at risk for pressure sore * Tachycardia * Hypotension * Mild respiratory distress * Anemia, ESRD related * Patient is requesting Full Code and her brother to be her surrogate decision maker * Existing POLST is not completed, is not valid Suggestion * O2 supplement via [place] as needed * Reposition in bed Q 2 hr * Monitor Hb level, continue Procrit * Full Code * Brother , 1 st contact in case of emergency, phone # on chart. Palliative care will continue to fallow up with patient and adjust goals of care as needed. Advance care discussion 35 min
--- NOTE | 2018-07-10 18:35 | CARD ---
APPROVED REPORT Date of service: 07/09/2018 EKG Measurement Heart [id number] <Conclusion> Atrial fibrillation Nonspecific ST abnormality Abnormal ECG
--- NOTE | 2018-07-10 19:08 | CP.PCM.PN ---
Subjective - Date & Time of Evaluation Date of Evaluation: 07/10/18 Time of Evaluation: 19:08 Objective - Vital Signs/Intake and Output Vital Signs (last 24 hours): Temp Pulse Resp BP Pulse Ox 98.0 F 126 H 24 89/58 L 97 07/10/18 16:00 07/10/18 12:20 07/10/18 12:20 07/10/18 12:20 07/10/18 12:20 Intake and Output: 07/10/18 07/11/18 18:59 06:59 Intake Total 680 Output Total 4 Balance 676 - Medications Medications: Current Medications Acetaminophen (Tylenol 325mg Tab) 650 mg PO Q6 PRN PRN Reason: Fever >100.4 F Last Admin: 06/26/18 18:19 Dose: 650 mg Alprazolam (Xanax) 0.25 mg PO BID PRN PRN Reason: Anxiety Stop: 07/13/18 18:40 Last Admin: 07/08/18 10:35 Dose: 0.25 mg Apixaban (Eliquis) 2.5 mg PO Q48H [facility] Last Admin: 07/09/18 15:48 Dose: 2.5 mg Budesonide (Pulmicort Respules) 0.25 mg IH RBID [facility] Last Admin: 07/10/18 08:20 Dose: 0.25 mg Calcium Acetate (Phoslo) 1,334 mg PO TIDCC [facility] Last Admin: 07/10/18 17:55 Dose: 1,334 mg Diltiazem HCl (Cardizem Cd) 240 mg PO DAILY [facility] Last Admin: 07/10/18 10:47 Dose: 240 mg Docusate Sodium (Colace) 100 mg PO BID [facility] Last Admin: 07/10/18 18:08 Dose: 100 mg Epoetin Eddie (Procrit) 10,000 unit IV MWF [facility] Last Admin: 07/10/18 10:08 Dose: 10,000 unit Famotidine (Pepcid) 20 mg PO DAILY [facility] Last Admin: 07/10/18 10:40 Dose: 20 mg Fluticasone/Vilanterol (Breo Ellipta 200-25 Mcg Inh) 1 puff INH RQD [facility] Last Admin: 07/10/18 11:34 Dose: 1 puff Glipizide (Glucotrol) 10 mg PO ACBD [facility] Last Admin: 07/10/18 17:09 Dose: 10 mg Guaifenesin/Dextromethorphan (Robitussin Dm) 10 ml PO Q4H PRN PRN Reason: Cough and congestion Last Admin: 07/04/18 16:59 Dose: 10 ml Home Med (Patient's Own Drops) 1 drop OD DAILY [facility] Diltiazem HCl 125 mg/ Sodium (Chloride) 125 mls @ 10 mls/hr IV .[id number] [facility]; Protocol Last Titration: 07/10/18 18:12 Dose: 0 mg/hr, 0 mls/hr Insulin Aspart (Novolog) 10 unit SC ONCE [facility] Insulin Aspart (Novolog) 0 unit SC ACHS [facility]; Protocol Last Admin: 07/10/18 18:09 Dose: Not Given Insulin Detemir (Levemir) 12 unit SC Q12H [facility] Last Admin: 07/10/18 11:18 Dose: 12 units Levothyroxine Sodium (Synthroid) 150 mcg PO DAILY@0630 [facility] Last Admin: 07/10/18 07:07 Dose: 150 mcg Polyethylene Glycol (Miralax) 17 gm PO DAILY PRN PRN Reason: Constipation Last Admin: 07/10/18 12:10 Dose: 17 gm Promethazine HCl/Codeine (Phenergan/Codeine Oral Syrup) 10 ml PO Q8H PRN PRN Reason: Cough Last Admin: 07/08/18 10:36 Dose: 10 ml Rosuvastatin Calcium (Crestor) 5 mg PO HS [facility] Last Admin: 07/09/18 22:12 Dose: 5 mg Tiotropium [place] (Spiriva) 18 mcg INH RQ24 [facility] Last Admin: 07/10/18 11:35 Dose: 18 mcg - Labs Labs: 07/10/18 06:24 07/10/18 06:22 Assessment and Plan (1) CHF exacerbation Status: Acute (2) Dyspnea Status: Acute (3) Atrial fibrillation with RVR Status: Resolved (4) COPD (chronic obstructive pulmonary disease) Status: Acute (5) ESRD (end stage renal disease) Status: Acute
--- NOTE | 2018-07-10 19:40 | CP.PCM.PN ---
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 - evaluated by critical care , transferred to icu back on cardizem drip no acute respiratory distress at this time cough present no chest pain no nausea, no fever, no vomiting Objective - Vital Signs/Intake and Output Vital Signs (last 24 hours): Temp Pulse Resp BP Pulse Ox 98.0 F 126 H 24 89/58 L 97 07/10/18 16:00 07/10/18 12:20 07/10/18 12:20 07/10/18 12:20 07/10/18 12:20 Intake and Output: 07/10/18 07/11/18 18:59 06:59 Intake Total 680 Output Total 4 Balance 676 - Medications Medications: Current Medications Acetaminophen (Tylenol 325mg Tab) 650 mg PO Q6 PRN PRN Reason: Fever >100.4 F Last Admin: 06/26/18 18:19 Dose: 650 mg Alprazolam (Xanax) 0.25 mg PO BID PRN PRN Reason: Anxiety Stop: 07/13/18 18:40 Last Admin: 07/08/18 10:35 Dose: 0.25 mg Apixaban (Eliquis) 2.5 mg PO Q48H [facility] Last Admin: 07/09/18 15:48 Dose: 2.5 mg Budesonide (Pulmicort Respules) 0.25 mg IH RBID [facility] Last Admin: 07/10/18 08:20 Dose: 0.25 mg Calcium Acetate (Phoslo) 1,334 mg PO TIDCC [facility] Last Admin: 07/10/18 17:55 Dose: 1,334 mg Diltiazem HCl (Cardizem Cd) 240 mg PO DAILY [facility] Last Admin: 07/10/18 10:47 Dose: 240 mg Docusate Sodium (Colace) 100 mg PO BID [facility] Last Admin: 07/10/18 18:08 Dose: 100 mg Epoetin Eddie (Procrit) 10,000 unit IV MWF [facility] Last Admin: 07/10/18 10:08 Dose: 10,000 unit Famotidine (Pepcid) 20 mg PO DAILY [facility] Last Admin: 07/10/18 10:40 Dose: 20 mg Fluticasone/Vilanterol (Breo Ellipta 200-25 Mcg Inh) 1 puff INH RQD [facility] Last Admin: 07/10/18 11:34 Dose: 1 puff Glipizide (Glucotrol) 10 mg PO ACBD [facility] Last Admin: 07/10/18 17:09 Dose: 10 mg Guaifenesin/Dextromethorphan (Robitussin Dm) 10 ml PO Q4H PRN PRN Reason: Cough and congestion Last Admin: 07/04/18 16:59 Dose: 10 ml Home Med (Patient's Own Drops) 1 drop OD DAILY [facility] Diltiazem HCl 125 mg/ Sodium (Chloride) 125 mls @ 10 mls/hr IV .[id number] [facility]; Protocol Last Titration: 07/10/18 18:12 Dose: 0 mg/hr, 0 mls/hr Insulin Aspart (Novolog) 10 unit SC ONCE [facility] Insulin Aspart (Novolog) 0 unit SC ACHS [facility]; Protocol Last Admin: 07/10/18 18:09 Dose: Not Given Insulin Detemir (Levemir) 12 unit SC Q12H [facility] Last Admin: 07/10/18 11:18 Dose: 12 units Levothyroxine Sodium (Synthroid) 150 mcg PO DAILY@0630 [facility] Last Admin: 07/10/18 07:07 Dose: 150 mcg Polyethylene Glycol (Miralax) 17 gm PO DAILY PRN PRN Reason: Constipation Last Admin: 07/10/18 12:10 Dose: 17 gm Promethazine HCl/Codeine (Phenergan/Codeine Oral Syrup) 10 ml PO Q8H PRN PRN Reason: Cough Last Admin: 07/08/18 10:36 Dose: 10 ml Rosuvastatin Calcium (Crestor) 5 mg PO HS [facility] Last Admin: 07/09/18 22:12 Dose: 5 mg Tiotropium [place] (Spiriva) 18 mcg INH RQ24 [facility] Last Admin: 07/10/18 11:35 Dose: 18 mcg - Labs Labs: 07/10/18 06:24 07/10/18 06:22 - Constitutional Appears: Well - Head Exam Head Exam: ATRAUMATIC, NORMAL INSPECTION, NORMOCEPHALIC - Eye Exam Eye Exam: EOMI, Normal appearance, PERRL Pupil Exam: NORMAL ACCOMODATION, PERRL - ENT Exam ENT Exam: Mucous Membranes Moist, Normal Exam - Neck Exam Neck Exam: Full ROM, Normal Inspection. absent: Lymphadenopathy - Respiratory Exam Respiratory Exam: Decreased Breath Sounds - Cardiovascular Exam Cardiovascular Exam: REGULAR RHYTHM, +S1, +S2 - GI/Abdominal Exam GI & Abdominal Exam: Soft, Diminished Bowel Sounds - Rectal Exam Rectal Exam: Deferred Assessment and Plan (1) CHF exacerbation Status: Acute (2) Dyspnea Status: Acute (3) ESRD (end stage renal disease) on dialysis Status: Acute (4) Uncontrolled diabetes mellitus Status: Acute (5) MARIA EUGENIA (acute kidney injury) Status: Acute (6) Abdominal pain Status: Acute (7) Acute bronchitis Status: Acute (8) Acute kidney injury Status: Acute (9) Acute kidney injury superimposed on chronic kidney disease Status: Acute (10) Acute respiratory failure Status: Acute (11) Anemia Status: Acute (12) Anemia of chronic disease Status: Acute (13) Atrial fibrillation with controlled ventricular response Status: Acute (14) Back pain of thoracolumbar region Status: Acute (15) Bronchitis Status: Acute (16) Bronchitis Status: Acute (17) CHF (congestive heart failure) Status: Acute (18) CHF (congestive heart failure) Status: Acute (19) CKD (chronic kidney disease) stage 3, GFR 30-59 ml/min Status: Acute (20) COPD (chronic obstructive pulmonary disease) Status: Acute (21) COPD exacerbation Status: Acute (22) COPD exacerbation Status: Acute (23) Chest pain Status: Acute (24) ESR raised Status: Acute (25) ESRD (end stage renal disease) Status: Acute (26) Fluid overload Status: Acute (27) Fluid overload, unspecified Status: Acute (28) Gastritis Status: Acute (29) Hepatitis Status: Acute (30) History of asthma Status: Acute (31) History of atrial fibrillation Status: Acute (32) History of back pain Status: Acute (33) History of gastroesophageal reflux (GERD) Status: Acute (34) Hypercalcemia Status: Acute (35) Hyperlipemia Status: Acute (36) Influenza Status: Acute (37) Leucocytosis Status: Acute (38) Lower extremity pain Status: Acute (39) Multiple myeloma Status: Acute (40) Multiple myeloma Status: Acute (41) Myeloma Status: Acute (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 (43) Occult gastrointestinal hemorrhage Status: Acute (44) Paroxysmal A-fib Status: Acute (45) Pneumonia Status: Acute (46) Prophylactic measure Status: Acute (47) Pulmonary hypertension Status: Acute (48) Pulmonary hypertension Status: Acute (49) Renal failure Status: Acute (50) Respiratory tract infection Status: Acute (51) Streptococcus pneumoniae Status: Acute (52) Symptomatic anemia Status: Acute (53) Vertigo Status: Acute (54) Worsening renal function Status: Acute (55) Anemia Status: Chronic (56) Asthma Status: Chronic (57) Atrial fibrillation Status: Chronic (58) Chronic diastolic (congestive) heart failure Status: Chronic (59) Diabetes Status: Chronic (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
[2018-07-11] MEDS ORDERED: Dextrose 50% SYRINGE Inj (50 ml) ONE (04:08)
--- NOTE | 2018-07-11 04:25 | CON ---
DATE: 07/10/2018 HISTORY OF PRESENT ILLNESS: This is an 83-year-old female, diagnosed to have lichen multiple myeloma with renal failure, on dialysis. Being treated with Velcade and Decadron. Initially treated with Velcade, Decadron, and Cytoxan with excellent clinical response. The patient is in remission. Last visit was about three to four weeks ago. The patient has multiple admissions in last two to three months for atrial fibrillation and pneumonia. The patient has chronic elevated white cell count. Now admitted with atrial fibrillation, high blood sugar, generalized weakness, no energy. I am called on consult for further evaluation and suggestions. PAST MEDICAL HISTORY: Significant for atrial fibrillation, diabetes mellitus, high cholesterol, hypertension. MEDICATIONS: The patient is on alprazolam, apixaban, Pulmicort, diltiazem, Pepcid, glipizide, and Crestor. ALLERGIES: NO KNOWN DRUG ALLERGIES. SOCIAL HISTORY: Nonsmoker. No ethanol abuse. Very supportive daughter. REVIEW OF SYSTEMS: Generalized weakness, unable to walk. No chest pain or palpitations. No fever or chills. No cough or sputum. Fair appetite. No nausea, vomiting, melena, hematochezia, or hematemesis. No dysuria or hematuria. PHYSICAL EXAMINATION: GENERAL: Awake, alert, oriented. Quiet, pleasant, not in acute distress. VITAL SIGNS: Temperature 98.5, pulse 126 and irregularly irregular, blood pressure 104/77. HEENT: Head: Normocephalic and atraumatic. Eyes: Conjunctivae pink. Sclerae white. Pupils are reacting to light. Ears, nose, and throat within normal limits. LUNGS: Bibasilar minimal rales. HEART: S1 and S2, regular. No gallop or murmur. ABDOMEN: Soft, nondistended, nontender. No hepatosplenomegaly. CENTRAL NERVOUS SYSTEM: No gross motor or sensory deficit. LYMPH NODES: No cervical, axillary, or inguinal lymph nodes palpable. EXTREMITIES; No edema. No cyanosis. No clubbing. No varicose vein. LABORATORY DATA: WBC 28,600, hemoglobin 9.3, platelet count 91,000. BUN 55, creatinine 2.6. IMPRESSION: 1. Lichen multiple myeloma. 2. Reactive leukocytosis, neutrophilia. PLAN: The patient has chronic elevated leukocytosis with neutrophilia. Unlikely, the patient has an infection on the basis of the white cell count because this is chronic. Anemia secondary to the renal insufficiency. Being treated with dialysis and Epogen. Multiple myeloma is in remission. Discussed roughly with the patient. Thank you for letting me participate in the care of this patient, and I will follow up the patient with you. Iggy Martinez MD cc: Dr. Winkler
[2018-07-11 06:11] LABS: HEMOGLOBIN 10.4 g/dL (11.0-16.0); LYMPH # 0.5 K/uL (1.0-4.3); LYMPH % 1.7 % (20.0-40.0); MEAN CELL VOLUME 86.9 fL (81.0-99.0); MEAN CORPUSCULAR HEMOGLOBIN 27.4 pg (27.0-31.0); MEAN CORPUSCULAR HGB CONC 31.6 g/dL (33.0-37.0); MEAN PLATELET VOLUME 11.7 fL (7.2-11.7); MONO # 0.6 K/uL (0.0-0.8); NEUT # 28.4 K/uL (1.8-7.0); NEUT % 96.3 % (50.0-75.0); PLATELET COUNT 103 K/uL (130-400); RBC 3.78 Mil/uL (3.80-5.20); RED CELL DISTRIBUTION WIDTH 16.9 % (11.5-14.5); WHITE BLOOD COUNT 29.5 K/uL (4.8-10.8)
[2018-07-11] MEDS: Levothyroxine 150 MCG TAB PO SCH (06:35)
[2018-07-11 06:39] LABS: ALBUMIN 2.9 g/dL (3.5-5.0); CALCIUM 8.7 mg/dl (8.6-10.4)
[2018-07-11] MEDS: Budesonide 0.25 mg/2 ml Inhal Susp UD IH SCH (08:06)
[2018-07-11] MEDS: Tiotropium 18 mcg Cap For Inhalation INH SCH (08:06)
[2018-07-11] MEDS: Fluticasone-Vilanterol 200/25mcg Diskus INH SCH (08:06)
[2018-07-11 08:21] LABS: BANDS 1 % (0-2); LYMPHOCYTE 2 % (20-40); MONOCYTE 1 % (0-10); NEUTROPHIL 96 % (50-75); PLATELET ESTIMATE SLIGHTLY DECREASED (NORMAL); TOTAL CELLS COUNTED 100
[2018-07-11 08:22] LABS: ANISOCYTOSIS SLIGHT; HYPOCHROMIC SLIGHT; LARGE PLATELETS PRESENT; TARGET CELLS SLIGHT
--- NOTE | 2018-07-11 09:28 | CP.PCM.PN ---
Subjective - Date & Time of Evaluation Date of Evaluation: 07/11/18 Time of Evaluation: 09:25 - Subjective Subjective: events noted transferred to ICU for rx AFib with rapid VR on diltiazem drip Now with Afib, VR-110-115 still weak Hg better post transfusions Dyspnea about same Objective - Vital Signs/Intake and Output Vital Signs (last 24 hours): Temp Pulse Resp BP Pulse Ox 98.1 F 126 H 24 89/58 L 97 07/11/18 04:00 07/10/18 12:20 07/10/18 12:20 07/10/18 12:20 07/10/18 12:20 Intake and Output: 07/11/18 07/11/18 06:59 18:59 Intake Total 790 5 Balance 790 5 - Medications Medications: Current Medications Acetaminophen (Tylenol 325mg Tab) 650 mg PO Q6 PRN PRN Reason: Fever >100.4 F Last Admin: 06/26/18 18:19 Dose: 650 mg Alprazolam (Xanax) 0.25 mg PO BID PRN PRN Reason: Anxiety Stop: 07/13/18 18:40 Last Admin: 07/08/18 10:35 Dose: 0.25 mg Amiodarone HCl (Cordarone) 200 mg PO DAILY [facility] Apixaban (Eliquis) 2.5 mg PO Q48H [facility] Last Admin: 07/09/18 15:48 Dose: 2.5 mg Budesonide (Pulmicort Respules) 0.25 mg IH RBID [facility] Last Admin: 07/10/18 19:39 Dose: 0.25 mg Calcium Acetate (Phoslo) 1,334 mg PO TIDCC [facility] Last Admin: 07/10/18 17:55 Dose: 1,334 mg Diltiazem HCl (Cardizem Cd) 240 mg PO DAILY [facility] Last Admin: 07/10/18 10:47 Dose: 240 mg Docusate Sodium (Colace) 100 mg PO BID [facility] Last Admin: 07/10/18 18:08 Dose: 100 mg Epoetin Eddie (Procrit) 10,000 unit IV MWF [facility] Last Admin: 07/10/18 10:08 Dose: 10,000 unit Famotidine (Pepcid) 20 mg PO DAILY [facility] Last Admin: 07/10/18 10:40 Dose: 20 mg Fluticasone/Vilanterol (Breo Ellipta 200-25 Mcg Inh) 1 puff INH RQD [facility] Last Admin: 07/10/18 11:34 Dose: 1 puff Glipizide (Glucotrol) 10 mg PO ACBD [facility] Last Admin: 07/10/18 17:09 Dose: 10 mg Guaifenesin/Dextromethorphan (Robitussin Dm) 10 ml PO Q4H PRN PRN Reason: Cough and congestion Last Admin: 07/04/18 16:59 Dose: 10 ml Home Med (Patient's Own Drops) 1 drop OD DAILY [facility] Diltiazem HCl 125 mg/ Sodium (Chloride) 125 mls @ 10 mls/hr IV .[id number] [facility]; Protocol Last Admin: 07/11/18 06:54 Dose: Not Given Insulin Aspart (Novolog) 10 unit SC ONCE [facility] Insulin Aspart (Novolog) 0 unit SC ACHS [facility]; Protocol Last Admin: 07/10/18 21:32 Dose: Not Given Insulin Detemir (Levemir) 12 unit SC Q12H [facility] Last Admin: 07/10/18 23:12 Dose: 12 units Levothyroxine Sodium (Synthroid) 150 mcg PO DAILY@0630 [facility] Last Admin: 07/11/18 06:35 Dose: 150 mcg Polyethylene Glycol (Miralax) 17 gm PO DAILY PRN PRN Reason: Constipation Last Admin: 07/10/18 12:10 Dose: 17 gm Promethazine HCl/Codeine (Phenergan/Codeine Oral Syrup) 10 ml PO Q8H PRN PRN Reason: Cough Last Admin: 07/08/18 10:36 Dose: 10 ml Rosuvastatin Calcium (Crestor) 5 mg PO HS [facility] Last Admin: 07/10/18 21:31 Dose: 5 mg Tiotropium [place] (Spiriva) 18 mcg INH RQ24 [facility] Last Admin: 07/10/18 11:35 Dose: 18 mcg - Labs Labs: 07/11/18 06:06 07/11/18 06:06 - Constitutional Appears: No Acute Distress, Chronically Ill - Head Exam Head Exam: ATRAUMATIC, NORMAL INSPECTION - Eye Exam Eye Exam: EOMI, Normal appearance - Neck Exam Neck Exam: Normal Inspection. absent: Tenderness - Respiratory Exam Respiratory Exam: Rhonchi, Respiratory Distress - Cardiovascular Exam Cardiovascular Exam: Tachycardia, Irregular Rhythm - GI/Abdominal Exam GI & Abdominal Exam: Soft. absent: Tenderness - Extremities Exam Extremities Exam: Normal Inspection. absent: Tenderness - Neurological Exam Neurological Exam: Awake, CN II-XII Intact - Skin Skin Exam: Dry, Warm Assessment and Plan (1) Atrial fibrillation with RVR Status: Resolved (2) CHF exacerbation Status: Acute (3) COPD exacerbation Status: Acute (4) Multiple myeloma Status: Acute - Assessment and Plan (Free Text) Plan: dialysis MWF Limit UF 1500ml diltiazem drip resuming amiodarone being considered follow up labs
[2018-07-11] MEDS: diltiaZEM 240 mg/24 Hours CD Cap PO SCH (10:45)
[2018-07-11] MEDS: BROMFENAC 0.07% OD SCH (10:45)
[2018-07-11] MEDS: Insulin Detemir 100 units/ml Vial (Levemir) SC SCH ×2 (10:45→22:30)
[2018-07-11] MEDS: (Novolog) Insulin Aspart, Recombinant 100 u/ml 10 ml vial SC SCH ×4 (10:46→21:23)
--- NOTE | 2018-07-11 13:43 | CP.PCM.PN ---
Subjective - Date & Time of Evaluation Date of Evaluation: 07/11/18 Time of Evaluation: 13:40 - Subjective Subjective: Pt is seen and examined In ICU for rapid afib Minimal dyspnea No events overnight Objective - Vital Signs/Intake and Output Vital Signs (last 24 hours): Temp Pulse Resp BP Pulse Ox 98.4 F 126 H 24 89/58 L 97 07/11/18 08:00 07/10/18 12:20 07/10/18 12:20 07/10/18 12:20 07/10/18 12:20 Intake and Output: 07/11/18 07/11/18 06:59 18:59 Intake Total 790 125 Balance 790 125 - Medications Medications: Current Medications Acetaminophen (Tylenol 325mg Tab) 650 mg PO Q6 PRN PRN Reason: Fever >100.4 F Last Admin: 06/26/18 18:19 Dose: 650 mg Alprazolam (Xanax) 0.25 mg PO BID PRN PRN Reason: Anxiety Stop: 07/13/18 18:40 Last Admin: 07/08/18 10:35 Dose: 0.25 mg Amiodarone HCl (Cordarone) 200 mg PO DAILY [facility] Last Admin: 07/11/18 10:46 Dose: 200 mg Apixaban (Eliquis) 2.5 mg PO Q48H [facility] Last Admin: 07/09/18 15:48 Dose: 2.5 mg Budesonide (Pulmicort Respules) 0.25 mg IH RBID [facility] Last Admin: 07/11/18 08:06 Dose: 0.25 mg Calcium Acetate (Phoslo) 1,334 mg PO TIDCC [facility] Last Admin: 07/11/18 08:46 Dose: 1,334 mg Diltiazem HCl (Cardizem Cd) 240 mg PO DAILY [facility] Last Admin: 07/11/18 10:45 Dose: 240 mg Docusate Sodium (Colace) 100 mg PO BID [facility] Last Admin: 07/11/18 10:45 Dose: 100 mg Epoetin Eddie (Procrit) 10,000 unit IV MWF [facility] Last Admin: 07/10/18 10:08 Dose: 10,000 unit Famotidine (Pepcid) 20 mg PO DAILY [facility] Last Admin: 07/11/18 10:46 Dose: 20 mg Fluticasone/Vilanterol (Breo Ellipta 200-25 Mcg Inh) 1 puff INH RQD [facility] Last Admin: 07/11/18 08:06 Dose: Not Given Glipizide (Glucotrol) 10 mg PO ACBD [facility] Last Admin: 07/10/18 17:09 Dose: 10 mg Guaifenesin/Dextromethorphan (Robitussin Dm) 10 ml PO Q4H PRN PRN Reason: Cough and congestion Last Admin: 07/04/18 16:59 Dose: 10 ml Home Med (Patient's Own Drops) 1 drop OD DAILY [facility] Last Admin: 07/11/18 10:45 Dose: 1 drop Diltiazem HCl 125 mg/ Sodium (Chloride) 125 mls @ 10 mls/hr IV .[id number] [facility]; Protocol Last Admin: 07/11/18 06:54 Dose: Not Given Insulin Aspart (Novolog) 10 unit SC ONCE [facility] Insulin Aspart (Novolog) 0 unit SC ACHS [facility]; Protocol Last Admin: 07/11/18 10:46 Dose: Not Given Insulin Detemir (Levemir) 12 unit SC Q12H [facility] Last Admin: 07/11/18 10:45 Dose: 12 units Levothyroxine Sodium (Synthroid) 150 mcg PO DAILY@0630 [facility] Last Admin: 07/11/18 06:35 Dose: 150 mcg Polyethylene Glycol (Miralax) 17 gm PO DAILY PRN PRN Reason: Constipation Last Admin: 07/10/18 12:10 Dose: 17 gm Promethazine HCl/Codeine (Phenergan/Codeine Oral Syrup) 10 ml PO Q8H PRN PRN Reason: Cough Last Admin: 07/08/18 10:36 Dose: 10 ml Rosuvastatin Calcium (Crestor) 5 mg PO HS [facility] Last Admin: 07/10/18 21:31 Dose: 5 mg Tiotropium [place] (Spiriva) 18 mcg INH RQ24 [facility] Last Admin: 07/11/18 08:06 Dose: Not Given - Labs Labs: 07/11/18 06:06 07/11/18 06:06 - Head Exam Head Exam: NORMAL INSPECTION - Eye Exam Eye Exam: Normal appearance - ENT Exam ENT Exam: Mucous Membranes Moist - Respiratory Exam Respiratory Exam: Clear to Ausculation Bilateral - Cardiovascular Exam Cardiovascular Exam: REGULAR RHYTHM, +S1, +S2 - GI/Abdominal Exam GI & Abdominal Exam: Soft, Normal Bowel Sounds - Extremities Exam Extremities Exam: Full ROM - Neurological Exam Neurological Exam: Alert, Oriented x3 Assessment and Plan (1) CHF exacerbation Status: Acute (2) Dyspnea Status: Acute (3) Atrial fibrillation with RVR Status: Resolved (4) COPD (chronic obstructive pulmonary disease) Status: Acute (5) ESRD (end stage renal disease) Status: Acute - Assessment and Plan (Free Text) Plan: Breo Ellipta Spiriva Ipratromium if pt needs bronchodilators HD as per schedule DVT/GI prophalaxis
--- NOTE | 2018-07-11 14:46 | CP.PCM.PN ---
Subjective - Date & Time of Evaluation Date of Evaluation: 07/11/18 Time of Evaluation: 09:40 - Subjective Subjective: patient seen and examined today no nausea, no vomiting, no diarrhea, no SOB, no dizziness, no fever pt is transferred to ICU for rx AFib with rapid VR on diltiazem drip now pt is ocmfortable in bed eating usually brother visits pt Now with Afib, VR-110-115 still weak Hg better post transfusions Objective - Vital Signs/Intake and Output Vital Signs (last 24 hours): Temp Pulse Resp BP Pulse Ox 98.4 F 126 H 24 89/58 L 97 07/11/18 08:00 07/10/18 12:20 07/10/18 12:20 07/10/18 12:20 07/10/18 12:20 Intake and Output: 07/11/18 07/11/18 06:59 18:59 Intake Total 790 125 Balance 790 125 - Medications Medications: Current Medications Acetaminophen (Tylenol 325mg Tab) 650 mg PO Q6 PRN PRN Reason: Fever >100.4 F Last Admin: 06/26/18 18:19 Dose: 650 mg Alprazolam (Xanax) 0.25 mg PO BID PRN PRN Reason: Anxiety Stop: 07/13/18 18:40 Last Admin: 07/08/18 10:35 Dose: 0.25 mg Amiodarone HCl (Cordarone) 200 mg PO DAILY [facility] Last Admin: 07/11/18 10:46 Dose: 200 mg Apixaban (Eliquis) 2.5 mg PO Q48H [facility] Last Admin: 07/09/18 15:48 Dose: 2.5 mg Budesonide (Pulmicort Respules) 0.25 mg IH RBID [facility] Last Admin: 07/11/18 08:06 Dose: 0.25 mg Calcium Acetate (Phoslo) 1,334 mg PO TIDCC [facility] Last Admin: 07/11/18 08:46 Dose: 1,334 mg Diltiazem HCl (Cardizem Cd) 240 mg PO DAILY [facility] Last Admin: 07/11/18 10:45 Dose: 240 mg Docusate Sodium (Colace) 100 mg PO BID [facility] Last Admin: 07/11/18 10:45 Dose: 100 mg Epoetin Eddie (Procrit) 10,000 unit IV MWF [facility] Last Admin: 07/10/18 10:08 Dose: 10,000 unit Famotidine (Pepcid) 20 mg PO DAILY [facility] Last Admin: 07/11/18 10:46 Dose: 20 mg Fluticasone/Vilanterol (Breo Ellipta 200-25 Mcg Inh) 1 puff INH RQD [facility] Last Admin: 07/11/18 08:06 Dose: Not Given Glipizide (Glucotrol) 10 mg PO ACBD [facility] Last Admin: 07/10/18 17:09 Dose: 10 mg Guaifenesin/Dextromethorphan (Robitussin Dm) 10 ml PO Q4H PRN PRN Reason: Cough and congestion Last Admin: 07/04/18 16:59 Dose: 10 ml Home Med (Patient's Own Drops) 1 drop OD DAILY [facility] Last Admin: 07/11/18 10:45 Dose: 1 drop Diltiazem HCl 125 mg/ Sodium (Chloride) 125 mls @ 10 mls/hr IV .[id number] [facility]; Protocol Last Admin: 07/11/18 06:54 Dose: Not Given Insulin Aspart (Novolog) 10 unit SC ONCE [facility] Insulin Aspart (Novolog) 0 unit SC ACHS [facility]; Protocol Last Admin: 07/11/18 10:46 Dose: Not Given Insulin Detemir (Levemir) 12 unit SC Q12H [facility] Last Admin: 07/11/18 10:45 Dose: 12 units Levothyroxine Sodium (Synthroid) 150 mcg PO DAILY@0630 [facility] Last Admin: 07/11/18 06:35 Dose: 150 mcg Polyethylene Glycol (Miralax) 17 gm PO DAILY PRN PRN Reason: Constipation Last Admin: 07/10/18 12:10 Dose: 17 gm Promethazine HCl/Codeine (Phenergan/Codeine Oral Syrup) 10 ml PO Q8H PRN PRN Reason: Cough Last Admin: 07/08/18 10:36 Dose: 10 ml Rosuvastatin Calcium (Crestor) 5 mg PO HS [facility] Last Admin: 07/10/18 21:31 Dose: 5 mg Tiotropium [place] (Spiriva) 18 mcg INH RQ24 [facility] Last Admin: 07/11/18 08:06 Dose: Not Given - Labs Labs: 07/11/18 06:06 07/11/18 06:06 - Constitutional Appears: Well - Head Exam Head Exam: ATRAUMATIC, NORMAL INSPECTION, NORMOCEPHALIC - Eye Exam Eye Exam: EOMI, Normal appearance, PERRL Pupil Exam: NORMAL ACCOMODATION, PERRL - ENT Exam ENT Exam: Mucous Membranes Moist, Normal Exam - Neck Exam Neck Exam: Full ROM, Normal Inspection. absent: Lymphadenopathy - Respiratory Exam Respiratory Exam: Decreased Breath Sounds - Cardiovascular Exam Cardiovascular Exam: REGULAR RHYTHM, +S1, +S2 - GI/Abdominal Exam GI & Abdominal Exam: Soft, Diminished Bowel Sounds - Rectal Exam Rectal Exam: Deferred Assessment and Plan (1) CHF exacerbation Status: Acute (2) Dyspnea Status: Acute (3) ESRD (end stage renal disease) on dialysis Status: Acute (4) Uncontrolled diabetes mellitus Status: Acute (5) MARIA EUGENIA (acute kidney injury) Status: Acute (6) Abdominal pain Status: Acute (7) Acute bronchitis Status: Acute (8) Acute kidney injury Status: Acute (9) Acute kidney injury superimposed on chronic kidney disease Status: Acute (10) Acute respiratory failure Status: Acute (11) Anemia Status: Acute (12) Anemia of chronic disease Status: Acute (13) Atrial fibrillation with controlled ventricular response Status: Acute (14) Back pain of thoracolumbar region Status: Acute (15) Bronchitis Status: Acute (16) Bronchitis Status: Acute (17) CHF (congestive heart failure) Status: Acute (18) CHF (congestive heart failure) Status: Acute (19) CKD (chronic kidney disease) stage 3, GFR 30-59 ml/min Status: Acute (20) COPD (chronic obstructive pulmonary disease) Status: Acute (21) COPD exacerbation Status: Acute (22) COPD exacerbation Status: Acute (23) Chest pain Status: Acute (24) ESR raised Status: Acute (25) ESRD (end stage renal disease) Status: Acute (26) Fluid overload Status: Acute (27) Fluid overload, unspecified Status: Acute (28) Gastritis Status: Acute (29) Hepatitis Status: Acute (30) History of asthma Status: Acute (31) History of atrial fibrillation Status: Acute (32) History of back pain Status: Acute (33) History of gastroesophageal reflux (GERD) Status: Acute (34) Hypercalcemia Status: Acute (35) Hyperlipemia Status: Acute (36) Influenza Status: Acute (37) Leucocytosis Status: Acute (38) Lower extremity pain Status: Acute (39) Multiple myeloma Status: Acute (40) Multiple myeloma Status: Acute (41) Myeloma Status: Acute (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 (43) Occult gastrointestinal hemorrhage Status: Acute (44) Paroxysmal A-fib Status: Acute (45) Pneumonia Status: Acute (46) Prophylactic measure Status: Acute (47) Pulmonary hypertension Status: Acute (48) Pulmonary hypertension Status: Acute (49) Renal failure Status: Acute (50) Respiratory tract infection Status: Acute (51) Streptococcus pneumoniae Status: Acute (52) Symptomatic anemia Status: Acute (53) Vertigo Status: Acute (54) Worsening renal function Status: Acute (55) Anemia Status: Chronic (56) Asthma Status: Chronic (57) Atrial fibrillation Status: Chronic (58) Chronic diastolic (congestive) heart failure Status: Chronic (59) Diabetes Status: Chronic (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 fib rate controlled Patient advised to encouraged to eat Status post heme onc for multiple myeloma nothing to be done as per hemo-also patient said the same thing Patient's WBC is still very high Discussed with ID Dr. Luong multiple times Continue off antibiotc followp wtih all consutlations including intesivisit id heme onc pulm renal etcs note apprecaited pt with high moderate cmplexity of care
[2018-07-12] MEDS: Levothyroxine 150 MCG TAB PO SCH (06:28)
[2018-07-12] MEDS: (Novolog) Insulin Aspart, Recombinant 100 u/ml 10 ml vial SC SCH ×4 (07:42→22:54)
[2018-07-12 07:57] LABS: ALBUMIN 2.6 g/dL (3.5-5.0); CALCIUM 8.2 mg/dl (8.6-10.4)
[2018-07-12 08:54] LABS: EOS % 0.1 % (0.0-4.0); LYMPH # 0.5 K/uL (1.0-4.3); LYMPH % 1.7 % (20.0-40.0); MEAN CORPUSCULAR HEMOGLOBIN 26.8 pg (27.0-31.0); MEAN CORPUSCULAR HGB CONC 31.2 g/dL (33.0-37.0); MEAN PLATELET VOLUME 11.8 fL (7.2-11.7); MONO # 0.7 K/uL (0.0-0.8); NEUT # 30.9 K/uL (1.8-7.0); NEUT % 96.2 % (50.0-75.0); RBC 3.13 Mil/uL (3.80-5.20); RED CELL DISTRIBUTION WIDTH 16.6 % (11.5-14.5); WHITE BLOOD COUNT 32.2 K/uL (4.8-10.8)
[2018-07-12 09:01] LABS: HEMOGLOBIN 8.5 g/dL (11.0-16.0)
[2018-07-12 09:02] LABS: PLATELET COUNT 79 K/uL (130-400)
[2018-07-12] MEDS: Tiotropium 18 mcg Cap For Inhalation INH SCH (09:04)
[2018-07-12] MEDS: Budesonide 0.25 mg/2 ml Inhal Susp UD IH SCH ×2 (09:04→19:35)
[2018-07-12] MEDS: Fluticasone-Vilanterol 200/25mcg Diskus INH SCH (09:04)
[2018-07-12] MEDS: diltiaZEM 240 mg/24 Hours CD Cap PO SCH (09:05)
[2018-07-12] MEDS: Promethazine/Cod 6.25mg-10mg/5ml Syr UD PO PRN (09:05)
[2018-07-12] MEDS: BROMFENAC 0.07% OD SCH (10:11)
[2018-07-12 10:12] LABS: BANDS 1 % (0-2); TOTAL CELLS COUNTED 100
[2018-07-12 10:13] LABS: ANISOCYTOSIS SLIGHT; HYPOCHROMIC SLIGHT; LYMPHOCYTE 2 % (20-40); MONOCYTE 2 % (0-10); NEUTROPHIL 95 % (50-75); PLATELET ESTIMATE DECREASED (NORMAL)
[2018-07-12] MEDS: Insulin Detemir 100 units/ml Vial (Levemir) SC SCH ×2 (11:26→22:53)
[2018-07-12] MEDS: Epoetin Alfa 10,000 unit/ml Dialysis IV SCH (11:29)
--- NOTE | 2018-07-12 13:07 | CP.PCM.PN ---
Subjective - Date & Time of Evaluation Date of Evaluation: 07/12/18 Time of Evaluation: 13:03 - Subjective Subjective: seen at dialysis To UF 2900ml remains in AFib, VR- 120s no overt bleeding less coughing on amiodarone, diltiazem po Objective - Vital Signs/Intake and Output Vital Signs (last 24 hours): Temp Pulse Resp BP Pulse Ox 99 F 126 H 21 91/53 L 100 07/12/18 09:40 07/12/18 12:09 07/12/18 09:40 07/12/18 12:10 07/12/18 09:40 Intake and Output: 07/12/18 07/12/18 06:59 18:59 Intake Total 120 Balance 120 - Medications Medications: Current Medications Acetaminophen (Tylenol 325mg Tab) 650 mg PO Q6 PRN PRN Reason: Fever >100.4 F Last Admin: 06/26/18 18:19 Dose: 650 mg Alprazolam (Xanax) 0.25 mg PO BID PRN PRN Reason: Anxiety Stop: 07/13/18 18:40 Last Admin: 07/12/18 09:04 Dose: 0.25 mg Amiodarone HCl (Cordarone) 200 mg PO DAILY [facility] Last Admin: 07/12/18 09:05 Dose: 200 mg Apixaban (Eliquis) 2.5 mg PO Q48H [facility] Last Admin: 07/11/18 14:57 Dose: 2.5 mg Budesonide (Pulmicort Respules) 0.25 mg IH RBID [facility] Last Admin: 07/12/18 09:04 Dose: Not Given Calcium Acetate (Phoslo) 1,334 mg PO TIDCC [facility] Last Admin: 07/12/18 12:44 Dose: Not Given Diltiazem HCl (Cardizem Cd) 240 mg PO DAILY [facility] Last Admin: 07/12/18 09:05 Dose: 240 mg Docusate Sodium (Colace) 100 mg PO BID [facility] Last Admin: 07/12/18 10:11 Dose: Not Given Epoetin Eddie (Procrit) 10,000 unit IV MWF [facility] Last Admin: 07/12/18 11:29 Dose: 10,000 unit Famotidine (Pepcid) 20 mg PO DAILY [facility] Last Admin: 07/12/18 10:11 Dose: Not Given Fluticasone/Vilanterol (Breo Ellipta 200-25 Mcg Inh) 1 puff INH RQD [facility] Last Admin: 07/12/18 09:04 Dose: Not Given Glipizide (Glucotrol) 10 mg PO ACBD [facility] Last Admin: 07/12/18 07:41 Dose: Not Given Guaifenesin/Dextromethorphan (Robitussin Dm) 10 ml PO Q4H PRN PRN Reason: Cough and congestion Last Admin: 07/04/18 16:59 Dose: 10 ml Home Med (Patient's Own Drops) 1 drop OD DAILY [facility] Last Admin: 07/12/18 10:11 Dose: Not Given Insulin Aspart (Novolog) 10 unit SC ONCE [facility] Insulin Aspart (Novolog) 0 unit SC ACHS [facility]; Protocol Last Admin: 07/12/18 12:43 Dose: Not Given Insulin Detemir (Levemir) 12 unit SC Q12H [facility] Last Admin: 07/12/18 11:26 Dose: Not Given Levothyroxine Sodium (Synthroid) 150 mcg PO DAILY@0630 [facility] Last Admin: 07/12/18 06:28 Dose: 150 mcg Polyethylene Glycol (Miralax) 17 gm PO DAILY PRN PRN Reason: Constipation Last Admin: 07/10/18 12:10 Dose: 17 gm Promethazine HCl/Codeine (Phenergan/Codeine Oral Syrup) 10 ml PO Q8H PRN PRN Reason: Cough Last Admin: 07/12/18 09:05 Dose: 10 ml Rosuvastatin Calcium (Crestor) 5 mg PO HS [facility] Last Admin: 07/11/18 22:30 Dose: 5 mg Tiotropium [place] (Spiriva) 18 mcg INH RQ24 [facility] Last Admin: 07/12/18 09:04 Dose: Not Given - Labs Labs: 07/12/18 08:37 07/12/18 07:26 - Constitutional Appears: No Acute Distress, Chronically Ill - Head Exam Head Exam: ATRAUMATIC, NORMAL INSPECTION - Eye Exam Eye Exam: EOMI, Normal appearance - Neck Exam Neck Exam: Normal Inspection. absent: Tenderness - Respiratory Exam Respiratory Exam: Clear to Ausculation Bilateral, NORMAL BREATHING PATTERN - Cardiovascular Exam Cardiovascular Exam: Tachycardia, Irregular Rhythm - GI/Abdominal Exam GI & Abdominal Exam: Soft. absent: Tenderness - Extremities Exam Extremities Exam: Normal Inspection. absent: Tenderness - Neurological Exam Neurological Exam: Awake, CN II-XII Intact - Skin Skin Exam: Dry, Warm Assessment and Plan (1) Atrial fibrillation with RVR Status: Resolved (2) CHF exacerbation Status: Acute (3) COPD exacerbation Status: Acute (4) Multiple myeloma Status: Acute - Assessment and Plan (Free Text) Plan: dialysis now, MWF with adequate UF goal monitor Afib as per cardio- same meds for now check Hg periodically
--- NOTE | 2018-07-12 15:25 | CP.PCM.PN ---
Subjective - Date & Time of Evaluation Date of Evaluation: 07/12/18 Time of Evaluation: 15:25 - Subjective Subjective: Patient seen and examined No events overnight Objective - Vital Signs/Intake and Output Vital Signs (last 24 hours): Temp Pulse Resp BP Pulse Ox 98.1 F 111 H 20 112/59 L 95 07/12/18 12:40 07/12/18 12:40 07/12/18 12:40 07/12/18 12:40 07/12/18 12:40 Intake and Output: 07/12/18 07/12/18 06:59 18:59 Intake Total 120 200 Balance 120 200 - Medications Medications: Current Medications Acetaminophen (Tylenol 325mg Tab) 650 mg PO Q6 PRN PRN Reason: Fever >100.4 F Last Admin: 06/26/18 18:19 Dose: 650 mg Alprazolam (Xanax) 0.25 mg PO BID PRN PRN Reason: Anxiety Stop: 07/13/18 18:40 Last Admin: 07/12/18 09:04 Dose: 0.25 mg Amiodarone HCl (Cordarone) 200 mg PO DAILY [facility] Last Admin: 07/12/18 09:05 Dose: 200 mg Apixaban (Eliquis) 2.5 mg PO Q48H [facility] Last Admin: 07/11/18 14:57 Dose: 2.5 mg Budesonide (Pulmicort Respules) 0.25 mg IH RBID [facility] Last Admin: 07/12/18 09:04 Dose: Not Given Calcium Acetate (Phoslo) 1,334 mg PO TIDCC [facility] Last Admin: 07/12/18 12:44 Dose: Not Given Diltiazem HCl (Cardizem Cd) 240 mg PO DAILY [facility] Last Admin: 07/12/18 09:05 Dose: 240 mg Docusate Sodium (Colace) 100 mg PO BID [facility] Last Admin: 07/12/18 10:11 Dose: Not Given Epoetin Eddie (Procrit) 10,000 unit IV MWF [facility] Last Admin: 07/12/18 11:29 Dose: 10,000 unit Famotidine (Pepcid) 20 mg PO DAILY [facility] Last Admin: 07/12/18 10:11 Dose: Not Given Fluticasone/Vilanterol (Breo Ellipta 200-25 Mcg Inh) 1 puff INH RQD [facility] Last Admin: 07/12/18 09:04 Dose: Not Given Glipizide (Glucotrol) 10 mg PO ACBD [facility] Last Admin: 07/12/18 07:41 Dose: Not Given Guaifenesin/Dextromethorphan (Robitussin Dm) 10 ml PO Q4H PRN PRN Reason: Cough and congestion Last Admin: 07/04/18 16:59 Dose: 10 ml Home Med (Patient's Own Drops) 1 drop OD DAILY [facility] Last Admin: 07/12/18 10:11 Dose: Not Given Insulin Aspart (Novolog) 10 unit SC ONCE [facility] Insulin Aspart (Novolog) 0 unit SC ACHS [facility]; Protocol Last Admin: 07/12/18 12:43 Dose: Not Given Insulin Detemir (Levemir) 12 unit SC Q12H [facility] Last Admin: 07/12/18 11:26 Dose: Not Given Levothyroxine Sodium (Synthroid) 150 mcg PO DAILY@0630 [facility] Last Admin: 07/12/18 06:28 Dose: 150 mcg Polyethylene Glycol (Miralax) 17 gm PO DAILY PRN PRN Reason: Constipation Last Admin: 07/10/18 12:10 Dose: 17 gm Promethazine HCl/Codeine (Phenergan/Codeine Oral Syrup) 10 ml PO Q8H PRN PRN Reason: Cough Last Admin: 07/12/18 09:05 Dose: 10 ml Rosuvastatin Calcium (Crestor) 5 mg PO HS [facility] Last Admin: 07/11/18 22:30 Dose: 5 mg Tiotropium [place] (Spiriva) 18 mcg INH RQ24 [facility] Last Admin: 07/12/18 09:04 Dose: Not Given - Labs Labs: 07/12/18 08:37 07/12/18 07:26 - Head Exam Head Exam: NORMAL INSPECTION - Eye Exam Eye Exam: Normal appearance - ENT Exam ENT Exam: Mucous Membranes Moist - Respiratory Exam Respiratory Exam: Clear to Ausculation Bilateral - Cardiovascular Exam Cardiovascular Exam: REGULAR RHYTHM, +S1, +S2 - GI/Abdominal Exam GI & Abdominal Exam: Soft, Normal Bowel Sounds - Extremities Exam Extremities Exam: Normal Inspection - Neurological Exam Neurological Exam: Alert, Oriented x3 Assessment and Plan (1) CHF exacerbation Status: Acute (2) Dyspnea Status: Acute (3) Atrial fibrillation with RVR Status: Resolved (4) COPD (chronic obstructive pulmonary disease) Status: Acute (5) ESRD (end stage renal disease) Status: Acute - Assessment and Plan (Free Text) Plan: Breo Ellipta Spiriva Ipratromium as needed HD as per schedule DVT/GI prophalaxis
[2018-07-12] MEDS: guaiFENesin DM 200 mg-20 mg/10 ml UD PO PRN (19:16)
--- NOTE | 2018-07-12 19:50 | CP.PCM.PN ---
Subjective - Date & Time of Evaluation Date of Evaluation: 07/12/18 Time of Evaluation: 10:25 - Subjective Subjective: patient seen and examined at bedside no acute overnight events noted no palpitations or chest pain no nausea, no fever, no diarrhea, no vomiting, denies SOB for HD today H&H stable Objective - Vital Signs/Intake and Output Vital Signs (last 24 hours): Temp Pulse Resp BP Pulse Ox 98.2 F 118 H 20 107/69 92 L 07/12/18 15:43 07/12/18 18:02 07/12/18 15:43 07/12/18 15:43 07/12/18 15:43 Intake and Output: 07/12/18 07/13/18 18:59 06:59 Intake Total 200 Balance 200 - Medications Medications: Current Medications Acetaminophen (Tylenol 325mg Tab) 650 mg PO Q6 PRN PRN Reason: Fever >100.4 F Last Admin: 06/26/18 18:19 Dose: 650 mg Alprazolam (Xanax) 0.25 mg PO BID PRN PRN Reason: Anxiety Stop: 07/13/18 18:40 Last Admin: 07/12/18 09:04 Dose: 0.25 mg Amiodarone HCl (Cordarone) 200 mg PO DAILY [facility] Last Admin: 07/12/18 09:05 Dose: 200 mg Apixaban (Eliquis) 2.5 mg PO Q48H [facility] Last Admin: 07/11/18 14:57 Dose: 2.5 mg Budesonide (Pulmicort Respules) 0.25 mg IH RBID [facility] Last Admin: 07/12/18 19:35 Dose: 0.25 mg Calcium Acetate (Phoslo) 1,334 mg PO TIDCC [facility] Last Admin: 07/12/18 19:10 Dose: 1,334 mg Diltiazem HCl (Cardizem Cd) 240 mg PO DAILY [facility] Last Admin: 07/12/18 09:05 Dose: 240 mg Docusate Sodium (Colace) 100 mg PO BID [facility] Last Admin: 07/12/18 19:11 Dose: 100 mg Epoetin Eddie (Procrit) 10,000 unit IV MWF [facility] Last Admin: 07/12/18 11:29 Dose: 10,000 unit Famotidine (Pepcid) 20 mg PO DAILY [facility] Last Admin: 07/12/18 10:11 Dose: Not Given Fluticasone/Vilanterol (Breo Ellipta 200-25 Mcg Inh) 1 puff INH RQD [facility] Last Admin: 07/12/18 09:04 Dose: Not Given Glipizide (Glucotrol) 10 mg PO ACBD [facility] Last Admin: 07/12/18 19:10 Dose: 10 mg Guaifenesin/Dextromethorphan (Robitussin Dm) 10 ml PO Q4H PRN PRN Reason: Cough and congestion Last Admin: 07/12/18 19:16 Dose: 10 ml Home Med (Patient's Own Drops) 1 drop OD DAILY [facility] Last Admin: 07/12/18 10:11 Dose: Not Given Insulin Aspart (Novolog) 10 unit SC ONCE [facility] Insulin Aspart (Novolog) 0 unit SC ACHS [facility]; Protocol Last Admin: 07/12/18 19:10 Dose: 2 units Insulin Detemir (Levemir) 12 unit SC Q12H [facility] Last Admin: 07/12/18 11:26 Dose: Not Given Levothyroxine Sodium (Synthroid) 150 mcg PO DAILY@0630 [facility] Last Admin: 07/12/18 06:28 Dose: 150 mcg Polyethylene Glycol (Miralax) 17 gm PO DAILY PRN PRN Reason: Constipation Last Admin: 07/10/18 12:10 Dose: 17 gm Promethazine HCl/Codeine (Phenergan/Codeine Oral Syrup) 10 ml PO Q8H PRN PRN Reason: Cough Last Admin: 07/12/18 09:05 Dose: 10 ml Rosuvastatin Calcium (Crestor) 5 mg PO HS [facility] Last Admin: 07/11/18 22:30 Dose: 5 mg Tiotropium [place] (Spiriva) 18 mcg INH RQ24 [facility] Last Admin: 07/12/18 09:04 Dose: Not Given - Labs Labs: 07/12/18 08:37 07/12/18 07:26 - Constitutional Appears: Well - Head Exam Head Exam: ATRAUMATIC, NORMAL INSPECTION, NORMOCEPHALIC - Eye Exam Eye Exam: EOMI, Normal appearance, PERRL Pupil Exam: NORMAL ACCOMODATION, PERRL - ENT Exam ENT Exam: Mucous Membranes Moist, Normal Exam - Neck Exam Neck Exam: Full ROM, Normal Inspection. absent: Lymphadenopathy - Respiratory Exam Respiratory Exam: Decreased Breath Sounds - Cardiovascular Exam Cardiovascular Exam: REGULAR RHYTHM, +S1, +S2 - GI/Abdominal Exam GI & Abdominal Exam: Soft, Diminished Bowel Sounds - Rectal Exam Rectal Exam: Deferred Assessment and Plan (1) CHF exacerbation Status: Acute (2) Dyspnea Status: Acute (3) ESRD (end stage renal disease) on dialysis Status: Acute (4) Uncontrolled diabetes mellitus Status: Acute (5) MARIA EUGENIA (acute kidney injury) Status: Acute (6) Abdominal pain Status: Acute (7) Acute bronchitis Status: Acute (8) Acute kidney injury Status: Acute (9) Acute kidney injury superimposed on chronic kidney disease Status: Acute (10) Acute respiratory failure Status: Acute (11) Anemia Status: Acute (12) Anemia of chronic disease Status: Acute (13) Atrial fibrillation with controlled ventricular response Status: Acute (14) Back pain of thoracolumbar region Status: Acute (15) Bronchitis Status: Acute (16) Bronchitis Status: Acute (17) CHF (congestive heart failure) Status: Acute (18) CHF (congestive heart failure) Status: Acute (19) CKD (chronic kidney disease) stage 3, GFR 30-59 ml/min Status: Acute (20) COPD (chronic obstructive pulmonary disease) Status: Acute (21) COPD exacerbation Status: Acute (22) COPD exacerbation Status: Acute (23) Chest pain Status: Acute (24) ESR raised Status: Acute (25) ESRD (end stage renal disease) Status: Acute (26) Fluid overload Status: Acute (27) Fluid overload, unspecified Status: Acute (28) Gastritis Status: Acute (29) Hepatitis Status: Acute (30) History of asthma Status: Acute (31) History of atrial fibrillation Status: Acute (32) History of back pain Status: Acute (33) History of gastroesophageal reflux (GERD) Status: Acute (34) Hypercalcemia Status: Acute (35) Hyperlipemia Status: Acute (36) Influenza Status: Acute (37) Leucocytosis Status: Acute (38) Lower extremity pain Status: Acute (39) Multiple myeloma Status: Acute (40) Multiple myeloma Status: Acute (41) Myeloma Status: Acute (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 (43) Occult gastrointestinal hemorrhage Status: Acute (44) Paroxysmal A-fib Status: Acute (45) Pneumonia Status: Acute (46) Prophylactic measure Status: Acute (47) Pulmonary hypertension Status: Acute (48) Pulmonary hypertension Status: Acute (49) Renal failure Status: Acute (50) Respiratory tract infection Status: Acute (51) Streptococcus pneumoniae Status: Acute (52) Symptomatic anemia Status: Acute (53) Vertigo Status: Acute (54) Worsening renal function Status: Acute (55) Anemia Status: Chronic (56) Asthma Status: Chronic (57) Atrial fibrillation Status: Chronic (58) Chronic diastolic (congestive) heart failure Status: Chronic (59) Diabetes Status: Chronic (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
[2018-07-13] MEDS: Levothyroxine 150 MCG TAB PO SCH (06:33)
[2018-07-13] MEDS: Budesonide 0.25 mg/2 ml Inhal Susp UD IH SCH ×2 (07:12→19:46)
[2018-07-13] MEDS: (Novolog) Insulin Aspart, Recombinant 100 u/ml 10 ml vial SC SCH ×4 (07:30→23:15)
[2018-07-13] MEDS: diltiaZEM 240 mg/24 Hours CD Cap PO SCH (09:18)
[2018-07-13 09:35] LABS: BASO % 0.1 % (0.0-2.0); HEMOGLOBIN 8.9 g/dL (11.0-16.0); LYMPH # 0.8 K/uL (1.0-4.3); LYMPH % 2.1 % (20.0-40.0); MEAN CORPUSCULAR HEMOGLOBIN 27.3 pg (27.0-31.0); MEAN CORPUSCULAR HGB CONC 31.3 g/dL (33.0-37.0); MEAN PLATELET VOLUME 12.5 fL (7.2-11.7); MONO # 0.6 K/uL (0.0-0.8); MONO % 1.5 % (0.0-10.0); NEUT # 35.7 K/uL (1.8-7.0); NEUT % 96.3 % (50.0-75.0); PLATELET COUNT 89 K/uL (130-400); RBC 3.27 Mil/uL (3.80-5.20); RED CELL DISTRIBUTION WIDTH 16.7 % (11.5-14.5)
[2018-07-13 09:44] LABS: WHITE BLOOD COUNT 37.1 K/uL (4.8-10.8)
--- NOTE | 2018-07-13 09:56 | CP.PCM.PN ---
Subjective - Date & Time of Evaluation Date of Evaluation: 07/13/18 Time of Evaluation: 09:52 - Subjective Subjective: pt seen and examined in bed, no distress on asking , mentions has cough had HD yesterday no palpitations no chest pain ROS- as per HPI, ohter than that 10 point ROS negative Objective - Vital Signs/Intake and Output Vital Signs (last 24 hours): Temp Pulse Resp BP Pulse Ox 98.4 F 99 H 20 101/60 95 07/13/18 07:00 07/13/18 07:50 07/13/18 07:00 07/13/18 07:00 07/13/18 07:00 - Medications Medications: Current Medications Acetaminophen (Tylenol 325mg Tab) 650 mg PO Q6 PRN PRN Reason: Fever >100.4 F Last Admin: 06/26/18 18:19 Dose: 650 mg Alprazolam (Xanax) 0.25 mg PO BID PRN PRN Reason: Anxiety Stop: 07/13/18 18:40 Last Admin: 07/13/18 09:18 Dose: 0.25 mg Amiodarone HCl (Cordarone) 200 mg PO DAILY [facility] Last Admin: 07/13/18 09:18 Dose: 200 mg Apixaban (Eliquis) 2.5 mg PO Q48H [facility] Last Admin: 07/11/18 14:57 Dose: 2.5 mg Budesonide (Pulmicort Respules) 0.25 mg IH RBID [facility] Last Admin: 07/12/18 19:35 Dose: 0.25 mg Calcium Acetate (Phoslo) 1,334 mg PO TIDCC [facility] Last Admin: 07/13/18 08:38 Dose: 1,334 mg Diltiazem HCl (Cardizem Cd) 240 mg PO DAILY [facility] Last Admin: 07/13/18 09:18 Dose: 240 mg Docusate Sodium (Colace) 100 mg PO BID [facility] Last Admin: 07/13/18 09:18 Dose: 100 mg Epoetin Eddie (Procrit) 10,000 unit IV MWF [facility] Last Admin: 07/12/18 11:29 Dose: 10,000 unit Famotidine (Pepcid) 20 mg PO DAILY [facility] Last Admin: 07/13/18 09:18 Dose: 20 mg Fluticasone/Vilanterol (Breo Ellipta 200-25 Mcg Inh) 1 puff INH RQD [facility] Last Admin: 07/12/18 09:04 Dose: Not Given Glipizide (Glucotrol) 10 mg PO ACBD [facility] Last Admin: 07/13/18 08:38 Dose: 10 mg Guaifenesin/Dextromethorphan (Robitussin Dm) 10 ml PO Q4H PRN PRN Reason: Cough and congestion Last Admin: 07/12/18 19:16 Dose: 10 ml Home Med (Patient's Own Drops) 1 drop OD DAILY [facility] Last Admin: 07/12/18 10:11 Dose: Not Given Insulin Aspart (Novolog) 10 unit SC ONCE [facility] Insulin Aspart (Novolog) 0 unit SC ACHS [facility]; Protocol Last Admin: 07/12/18 22:54 Dose: Not Given Insulin Detemir (Levemir) 12 unit SC Q12H [facility] Last Admin: 07/12/18 22:53 Dose: 12 units Levothyroxine Sodium (Synthroid) 150 mcg PO DAILY@0630 [facility] Last Admin: 07/13/18 06:33 Dose: 150 mcg Polyethylene Glycol (Miralax) 17 gm PO DAILY PRN PRN Reason: Constipation Last Admin: 07/10/18 12:10 Dose: 17 gm Promethazine HCl/Codeine (Phenergan/Codeine Oral Syrup) 10 ml PO Q8H PRN PRN Reason: Cough Last Admin: 07/12/18 09:05 Dose: 10 ml Rosuvastatin Calcium (Crestor) 5 mg PO HS [facility] Last Admin: 07/12/18 22:53 Dose: 5 mg Tiotropium [place] (Spiriva) 18 mcg INH RQ24 [facility] Last Admin: 07/12/18 09:04 Dose: Not Given - Labs Labs: 07/13/18 09:21 07/12/18 07:26 - Constitutional Appears: In Acute Distress, Chronically Ill - Head Exam Head Exam: ATRAUMATIC, NORMOCEPHALIC - Eye Exam Eye Exam: EOMI, PERRL - ENT Exam ENT Exam: Mucous Membranes Moist - Neck Exam Neck Exam: Full ROM - Respiratory Exam Respiratory Exam: Clear to Ausculation Bilateral, Rhonchi, NORMAL BREATHING PATTERN. absent: Wheezes, Respiratory Distress - Cardiovascular Exam Cardiovascular Exam: Tachycardia, REGULAR RHYTHM - GI/Abdominal Exam GI & Abdominal Exam: Soft. absent: Tenderness - Extremities Exam Extremities Exam: Full ROM. absent: Pedal Edema - Neurological Exam Neurological Exam: Alert, Awake, Oriented x3 - Psychiatric Exam Psychiatric exam: Normal Affect, Normal Mood - Skin Skin Exam: Intact, Warm Assessment and Plan (1) Chronic a-fib Status: Acute (2) Dyspnea Status: Acute (3) ESRD (end stage renal disease) on dialysis Status: Acute (4) Uncontrolled diabetes mellitus Status: Acute (5) Atrial fibrillation with RVR Status: Resolved (6) Anemia Status: Acute - Assessment and Plan (Free Text) Plan: maintain HD MWF volume status - optimal management of A fib as per cardio-? candidate for ablation on amio and cardiazem leucocytosis- ? etiology, not on any ABx
[2018-07-13 10:21] LABS: ALBUMIN 2.8 g/dL (3.5-5.0); CALCIUM 8.4 mg/dl (8.6-10.4)
--- NOTE | 2018-07-13 10:31 | CP.PCM.PN ---
Subjective - Date & Time of Evaluation Date of Evaluation: 07/13/18 Time of Evaluation: 12:00 - Subjective Subjective: patient examined at bedside denies nausea, vomiting, fever, shortness of breath, diarrhea, mentions little cough tolerated HD yesterday - no palpitations or chest pain Objective - Vital Signs/Intake and Output Vital Signs (last 24 hours): Temp Pulse Resp BP Pulse Ox 98.4 F 99 H 20 101/60 95 07/13/18 07:00 07/13/18 07:50 07/13/18 07:00 07/13/18 07:00 07/13/18 07:00 - Medications Medications: Current Medications Acetaminophen (Tylenol 325mg Tab) 650 mg PO Q6 PRN PRN Reason: Fever >100.4 F Last Admin: 06/26/18 18:19 Dose: 650 mg Alprazolam (Xanax) 0.25 mg PO BID PRN PRN Reason: Anxiety Stop: 07/13/18 18:40 Last Admin: 07/13/18 09:18 Dose: 0.25 mg Amiodarone HCl (Cordarone) 200 mg PO DAILY [facility] Last Admin: 07/13/18 09:18 Dose: 200 mg Apixaban (Eliquis) 2.5 mg PO Q48H [facility] Last Admin: 07/11/18 14:57 Dose: 2.5 mg Budesonide (Pulmicort Respules) 0.25 mg IH RBID [facility] Last Admin: 07/12/18 19:35 Dose: 0.25 mg Calcium Acetate (Phoslo) 1,334 mg PO TIDCC [facility] Last Admin: 07/13/18 08:38 Dose: 1,334 mg Diltiazem HCl (Cardizem Cd) 240 mg PO DAILY [facility] Last Admin: 07/13/18 09:18 Dose: 240 mg Docusate Sodium (Colace) 100 mg PO BID [facility] Last Admin: 07/13/18 09:18 Dose: 100 mg Epoetin Eddie (Procrit) 10,000 unit IV MWF [facility] Last Admin: 07/12/18 11:29 Dose: 10,000 unit Famotidine (Pepcid) 20 mg PO DAILY [facility] Last Admin: 07/13/18 09:18 Dose: 20 mg Fluticasone/Vilanterol (Breo Ellipta 200-25 Mcg Inh) 1 puff INH RQD [facility] Last Admin: 07/12/18 09:04 Dose: Not Given Glipizide (Glucotrol) 10 mg PO ACBD [facility] Last Admin: 07/13/18 08:38 Dose: 10 mg Guaifenesin/Dextromethorphan (Robitussin Dm) 10 ml PO Q4H PRN PRN Reason: Cough and congestion Last Admin: 07/12/18 19:16 Dose: 10 ml Home Med (Patient's Own Drops) 1 drop OD DAILY [facility] Last Admin: 07/12/18 10:11 Dose: Not Given Insulin Aspart (Novolog) 10 unit SC ONCE [facility] Insulin Aspart (Novolog) 0 unit SC ACHS [facility]; Protocol Last Admin: 07/12/18 22:54 Dose: Not Given Insulin Detemir (Levemir) 12 unit SC Q12H [facility] Last Admin: 07/12/18 22:53 Dose: 12 units Levothyroxine Sodium (Synthroid) 150 mcg PO DAILY@0630 [facility] Last Admin: 07/13/18 06:33 Dose: 150 mcg Polyethylene Glycol (Miralax) 17 gm PO DAILY PRN PRN Reason: Constipation Last Admin: 07/10/18 12:10 Dose: 17 gm Promethazine HCl/Codeine (Phenergan/Codeine Oral Syrup) 10 ml PO Q8H PRN PRN Reason: Cough Last Admin: 07/12/18 09:05 Dose: 10 ml Rosuvastatin Calcium (Crestor) 5 mg PO HS [facility] Last Admin: 07/12/18 22:53 Dose: 5 mg Tiotropium [place] (Spiriva) 18 mcg INH RQ24 [facility] Last Admin: 07/12/18 09:04 Dose: Not Given - Labs Labs: 07/13/18 09:21 07/13/18 09:21 - Constitutional Appears: Well - Head Exam Head Exam: ATRAUMATIC, NORMAL INSPECTION, NORMOCEPHALIC - Eye Exam Eye Exam: EOMI, Normal appearance, PERRL Pupil Exam: NORMAL ACCOMODATION, PERRL - ENT Exam ENT Exam: Mucous Membranes Moist, Normal Exam - Neck Exam Neck Exam: Full ROM, Normal Inspection. absent: Lymphadenopathy - Respiratory Exam Respiratory Exam: Decreased Breath Sounds - Cardiovascular Exam Cardiovascular Exam: REGULAR RHYTHM, +S1, +S2 - GI/Abdominal Exam GI & Abdominal Exam: Soft, Diminished Bowel Sounds - Rectal Exam Rectal Exam: Deferred Assessment and Plan (1) CHF exacerbation Status: Acute (2) Dyspnea Status: Acute (3) ESRD (end stage renal disease) on dialysis Status: Acute (4) Uncontrolled diabetes mellitus Status: Acute (5) MARIA EUGENIA (acute kidney injury) Status: Acute (6) Abdominal pain Status: Acute (7) Acute bronchitis Status: Acute (8) Acute kidney injury Status: Acute (9) Acute kidney injury superimposed on chronic kidney disease Status: Acute (10) Acute respiratory failure Status: Acute (11) Anemia Status: Acute (12) Anemia of chronic disease Status: Acute (13) Atrial fibrillation with controlled ventricular response Status: Acute (14) Back pain of thoracolumbar region Status: Acute (15) Bronchitis Status: Acute (16) Bronchitis Status: Acute (17) CHF (congestive heart failure) Status: Acute (18) CHF (congestive heart failure) Status: Acute (19) CKD (chronic kidney disease) stage 3, GFR 30-59 ml/min Status: Acute (20) COPD (chronic obstructive pulmonary disease) Status: Acute (21) COPD exacerbation Status: Acute (22) COPD exacerbation Status: Acute (23) Chest pain Status: Acute (24) ESR raised Status: Acute (25) ESRD (end stage renal disease) Status: Acute (26) Fluid overload Status: Acute (27) Fluid overload, unspecified Status: Acute (28) Gastritis Status: Acute (29) Hepatitis Status: Acute (30) History of asthma Status: Acute (31) History of atrial fibrillation Status: Acute (32) History of back pain Status: Acute (33) History of gastroesophageal reflux (GERD) Status: Acute (34) Hypercalcemia Status: Acute (35) Hyperlipemia Status: Acute (36) Influenza Status: Acute (37) Leucocytosis Status: Acute (38) Lower extremity pain Status: Acute (39) Multiple myeloma Status: Acute (40) Multiple myeloma Status: Acute (41) Myeloma Status: Acute (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 (43) Occult gastrointestinal hemorrhage Status: Acute (44) Paroxysmal A-fib Status: Acute (45) Pneumonia Status: Acute (46) Prophylactic measure Status: Acute (47) Pulmonary hypertension Status: Acute (48) Pulmonary hypertension Status: Acute (49) Renal failure Status: Acute (50) Respiratory tract infection Status: Acute (51) Streptococcus pneumoniae Status: Acute (52) Symptomatic anemia Status: Acute (53) Vertigo Status: Acute (54) Worsening renal function Status: Acute (55) Anemia Status: Chronic (56) Asthma Status: Chronic (57) Atrial fibrillation Status: Chronic (58) Chronic diastolic (congestive) heart failure Status: Chronic (59) Diabetes Status: Chronic (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 - Assessment and Plan (Free Text) Plan: patient evaluated today at bedside labs reviewed vitals reviewed breo ellipta 200-25 mcg inh cardizem cd colace cordarone crestor eliquis glucotrol levemir miralax novlog pepcid phenergran/codeine oral syrup phoslo pulmicort respules robitussin Dm spiriva synthroid tylenol 325mg tab riana HD per nephro renal diet pt/ot dvt/gi ppx
[2018-07-13] MEDS: Fluticasone-Vilanterol 200/25mcg Diskus INH SCH (11:12)
[2018-07-13] MEDS: Tiotropium 18 mcg Cap For Inhalation INH SCH (11:13)
[2018-07-13 11:14] LABS: BANDS 2 % (0-2); LYMPHOCYTE 4 % (20-40); MONOCYTE 1 % (0-10); NEUTROPHIL 93 % (50-75); PLATELET ESTIMATE DECREASED (NORMAL); TOTAL CELLS COUNTED 100
[2018-07-13 11:15] LABS: ANISOCYTOSIS SLIGHT; HYPOCHROMIC SLIGHT; POIKILOCYTOSIS SLIGHT
[2018-07-13 11:16] LABS: OVALOCYTES SLIGHT; POLYCHROMIC SLIGHT; SPHEROCYTES SLIGHT
[2018-07-13 11:17] LABS: TEARDROP CELLS SLIGHT
[2018-07-13] MEDS: BROMFENAC 0.07% OD SCH (11:17)
[2018-07-13] MEDS: Promethazine/Cod 6.25mg-10mg/5ml Syr UD PO PRN (11:17)
[2018-07-13] MEDS: Insulin Detemir 100 units/ml Vial (Levemir) SC SCH ×2 (11:18→23:15)
[2018-07-13] MEDS: guaiFENesin DM 200 mg-20 mg/10 ml UD PO PRN (18:57)
[2018-07-14] MEDS: Levothyroxine 150 MCG TAB PO SCH (06:59)
[2018-07-14] MEDS: Fluticasone-Vilanterol 200/25mcg Diskus INH SCH (07:53)
[2018-07-14] MEDS: Tiotropium 18 mcg Cap For Inhalation INH SCH (07:53)
[2018-07-14] MEDS: Budesonide 0.25 mg/2 ml Inhal Susp UD IH SCH ×2 (07:54→19:43)
[2018-07-14] MEDS: (Novolog) Insulin Aspart, Recombinant 100 u/ml 10 ml vial SC SCH ×5 (08:05→22:33)
[2018-07-14 08:22] LABS: BASO % 0.1 % (0.0-2.0); EOS % 0.1 % (0.0-4.0); HEMOGLOBIN 8.7 g/dL (11.0-16.0); LYMPH % 3.1 % (20.0-40.0); MEAN CELL VOLUME 86.7 fL (81.0-99.0); MEAN CORPUSCULAR HEMOGLOBIN 27.5 pg (27.0-31.0); MEAN CORPUSCULAR HGB CONC 31.7 g/dL (33.0-37.0); MEAN PLATELET VOLUME 11.8 fL (7.2-11.7); MONO # 0.6 K/uL (0.0-0.8); MONO % 1.8 % (0.0-10.0); NEUT % 94.9 % (50.0-75.0); PLATELET COUNT 85 K/uL (130-400); RBC 3.18 Mil/uL (3.80-5.20); RED CELL DISTRIBUTION WIDTH 16.4 % (11.5-14.5); WHITE BLOOD COUNT 32.7 K/uL (4.8-10.8)
[2018-07-14 08:29] LABS: ALBUMIN 2.8 g/dL (3.5-5.0); CALCIUM 8.6 mg/dl (8.6-10.4)
[2018-07-14] MEDS: POLYETHYLENE GLYCOL 3350 17 GM/Dose PACKET PO PRN (08:29)
[2018-07-14 10:17] LABS: ANISOCYTOSIS SLIGHT; BANDS 1 % (0-2); EOSINOPHIL 1 % (0-4); HYPOCHROMIC SLIGHT; LYMPHOCYTE 2 % (20-40); MONOCYTE 1 % (0-10); NEUTROPHIL 95 % (50-75); PLATELET ESTIMATE DECREASED (NORMAL); TOTAL CELLS COUNTED 100
[2018-07-14] MEDS: diltiaZEM 240 mg/24 Hours CD Cap PO SCH (10:26)
[2018-07-14] MEDS: BROMFENAC 0.07% OD SCH (10:26)
[2018-07-14] MEDS: Insulin Detemir 100 units/ml Vial (Levemir) SC SCH ×2 (10:26→22:48)
[2018-07-14] MEDS: Promethazine/Cod 6.25mg-10mg/5ml Syr UD PO PRN (10:27)
--- NOTE | 2018-07-14 13:02 | CP.PCM.PN ---
Subjective - Date & Time of Evaluation Date of Evaluation: 07/14/18 Time of Evaluation: 12:57 - Subjective Subjective: Pt feels ok, no complaints Objective - Vital Signs/Intake and Output Vital Signs (last 24 hours): Temp Pulse Resp BP Pulse Ox 98.3 F 144 H 18 90/49 L 96 07/14/18 12:40 07/14/18 12:29 07/14/18 12:40 07/14/18 12:40 07/14/18 12:40 - Medications Medications: Current Medications Acetaminophen (Tylenol 325mg Tab) 650 mg PO Q6 PRN PRN Reason: Fever >100.4 F Last Admin: 06/26/18 18:19 Dose: 650 mg Amiodarone HCl (Cordarone) 200 mg PO DAILY [facility] Last Admin: 07/14/18 10:26 Dose: 200 mg Apixaban (Eliquis) 2.5 mg PO Q48H [facility] Last Admin: 07/13/18 13:37 Dose: 2.5 mg Budesonide (Pulmicort Respules) 0.25 mg IH RBID [facility] Last Admin: 07/14/18 07:54 Dose: 0.25 mg Calcium Acetate (Phoslo) 1,334 mg PO TIDCC [facility] Last Admin: 07/14/18 12:51 Dose: 1,334 mg Diltiazem HCl (Cardizem Cd) 240 mg PO DAILY [facility] Last Admin: 07/14/18 10:26 Dose: 240 mg Docusate Sodium (Colace) 100 mg PO BID [facility] Last Admin: 07/14/18 10:26 Dose: 100 mg Famotidine (Pepcid) 20 mg PO DAILY [facility] Last Admin: 07/14/18 10:27 Dose: 20 mg Fluticasone/Vilanterol (Breo Ellipta 200-25 Mcg Inh) 1 puff INH RQD [facility] Last Admin: 07/14/18 07:53 Dose: 1 puff Glipizide (Glucotrol) 10 mg PO ACBD [facility] Last Admin: 07/14/18 08:29 Dose: 10 mg Guaifenesin/Dextromethorphan (Robitussin Dm) 10 ml PO Q4H PRN PRN Reason: Cough and congestion Last Admin: 07/13/18 18:57 Dose: 10 ml Home Med (Patient's Own Drops) 1 drop OD DAILY [facility] Last Admin: 07/14/18 10:26 Dose: 1 drop Insulin Aspart (Novolog) 10 unit SC ONCE [facility] Insulin Aspart (Novolog) 0 unit SC ACHS [facility]; Protocol Last Admin: 07/14/18 12:51 Dose: 2 units Insulin Detemir (Levemir) 12 unit SC Q12H [facility] Last Admin: 07/14/18 10:26 Dose: 12 units Levothyroxine Sodium (Synthroid) 150 mcg PO DAILY@0630 [facility] Last Admin: 07/14/18 06:59 Dose: 150 mcg Polyethylene Glycol (Miralax) 17 gm PO DAILY PRN PRN Reason: Constipation Last Admin: 07/14/18 08:29 Dose: 17 gm Promethazine HCl/Codeine (Phenergan/Codeine Oral Syrup) 10 ml PO Q8H PRN PRN Reason: Cough Last Admin: 07/14/18 10:27 Dose: 10 ml Rosuvastatin Calcium (Crestor) 5 mg PO HS [facility] Last Admin: 07/13/18 23:15 Dose: 5 mg Tiotropium [place] (Spiriva) 18 mcg INH RQ24 [facility] Last Admin: 07/14/18 07:53 Dose: 18 mcg - Labs Labs: 07/14/18 07:57 07/14/18 07:57 - Constitutional Appears: Chronically Ill - Head Exam Head Exam: ATRAUMATIC - Eye Exam Eye Exam: EOMI Pupil Exam: NORMAL ACCOMODATION - ENT Exam ENT Exam: Mucous Membranes Moist - Neck Exam Neck Exam: Full ROM - Respiratory Exam Respiratory Exam: Clear to Ausculation Bilateral, NORMAL BREATHING PATTERN - Cardiovascular Exam Cardiovascular Exam: REGULAR RHYTHM - GI/Abdominal Exam GI & Abdominal Exam: Normal Bowel Sounds - Exam External exam: NORMAL EXTERNAL EXAM - Extremities Exam Extremities Exam: Full ROM - Neurological Exam Neurological Exam: Alert, Awake, Normal Gait - Psychiatric Exam Psychiatric exam: Normal Affect - Skin Skin Exam: Normal Color Assessment and Plan - Assessment and Plan (Free Text) Assessment: adenosine and if it does not work, then IV Amiodarone.
--- NOTE | 2018-07-14 13:08 | PCM.RRT ---
<Nika Junior V - Last Filed: 07/14/18 15:25> [employer] Nurses Assessment - Vital Signs Vital Signs: Rapid Response Vital Sign Blood Pressure 80/59 Pulse Rate 144 Respiratory Rate 20 Temperature 97.3 F Oxygen Saturation 96 - Vital Signs at end of [employer] Vital Signs at end of [employer]: Rapid Response End Vital Sign Blood Pressure 90/57 Pulse Rate 153 Respiratory Rate 18 Temperature 98.3 F O2 Sat by Pulse Oximetry 97 Attending/Attestation - Attestation I have personally seen and examined this patient.: Yes I have fully participated in the care of the patient.: Yes I have reviewed all pertinent clinical information, including history, physical exam and plan: Yes Notes (Text): [employer]: called by cardiology for SVT Adenosine 6mg IV X1 via PICC line from SVT to atrial flutter transfered to ICU for amiodarone bolus Cardiology on board; will speak with EP to see if eligible for ablation or not <Sergio Thompson - Last Filed: 07/14/18 18:19> [employer] Nurses Assessment - Situation Date: 07/10/18 Time [employer] was called: 13:14 [employer] Responder Arrival Time:: 13:16 [employer] Location:: HEMODIALYSIS DEPARTMENT Room Number: Hemodialys [employer] Reason for Call: Tachycardia [employer] Called By: RN - IV IV Inserted during [employer]?: No New IV Insertion Tolerance: Good - Respiratory [employer] Delivery Method: Nasal Cannula @L/min Oxygen Flow Rate: 4 Received Nebulizer Treatments: No Was the Patient Ventilated with Bag/Mask 100% O2?: No Secretions Suctioned?: No Was the Patient Intubated?: No Was the Patient Placed on a Ventilator?: No - Ventilator Settings FIO2 (% Oxygen): 40 - Medication Medications Administered During [employer]: Cardizem 5mg IVP 3 Doses. (Total of 15mg Cardizem administered thru out the whole [employer] event) - Diagnostic Test Ordered EKG: No Chest X-Ray: No CT Scan: No - Stat Labs Ordered [employer] Stat Labs Ordered: CBC, BMP CPR started during [employer]?: No - Vital Signs Vital Signs: Rapid Response Vital Sign Blood Pressure 100/59 Pulse Rate 160 Respiratory Rate 20 Temperature 98.9 F Oxygen Saturation 99 - Yelena Coma Scale Coma Scale Eye Opening: Spontaneous Coma Scale Motor: Obeys Commands Movement Coma Scale Verbal: Oriented Coma Scale Total: 15 - Sepsis Screen Part 1 Sepsis Screen Part 1: Temperature over 100.6F - Time [employer] Ended Time [employer] Ended: 14:00 - Vital Signs at end of [employer] Vital Signs at end of [employer]: Rapid Response End Vital Sign Blood Pressure 100/47 Pulse Rate 162 Respiratory Rate 20 Temperature 101.3 F O2 Sat by Pulse Oximetry 99 - Recommendations 5) [employer] Level of Care Recommendations: Transfer to ICU (will start cardizem gtt at 10 mg/hr) Notifications: Attending Physician, Family or Designated Caregiver - Respiratory Oxygen Delivery Method: Nasal Cannula @L/min Oxygen Flow Rate: 4 - Head Head Exam: ATRAUMATIC, NORMAL INSPECTION - Eyes Eye Exam: EOMI, Normal appearance - Respiratory Exam Respiratory Exam: Clear to Ausculation Bilateral, NORMAL BREATHING PATTERN - Cardiovascular Exam Cardiovascular Exam: Irregular Rhythm, +S1, +S2 - GI/Abdominal Exam GI & Abdominal Exam: Soft, Normal Bowel Sounds - Neurological Exam Neurological Exam: Alert, Awake, Oriented x3 Plan - Assessment of Findings&Treatment Plan 83 year old female found to be in SVT. Plan: 6mg Adenosine IVP Dispo: Patient converted to Atrial flutter. ICU consulted and transferred downstairs for further management.
--- NOTE | 2018-07-14 14:33 | CP.CCUPN ---
CCU Subjective - Physician Review Events Since Last Encounter (Free Text): 07/14/18 14:29 no complaints. Patient went into SVT again, transferred to ICU for further management. CCU Objective - Vital Signs / Intake & Output Vital Signs (Last 4 hours): Vital Signs Temp Pulse Resp BP Pulse Ox 07/14/18 12:40 98.3 F 18 90/49 L 96 07/14/18 12:29 144 H - Physical Exam Head: Positive for: Atraumatic, Normocephalic Pupils: Positive for: PERRL Extroacular Muscles: Positive for: EOMI Conjunctiva: Positive for: Normal Neck: Positive for: Normal Range of Motion. Negative for: Meningeal Signs, JVD, Lymphadenopathy Respiratory/Chest: Positive for: Clear to Auscultation, Good Air Exchange. Negative for: Respiratory Distress, Accessory Muscle Use, Wheezes, Rales, Rhonchi Cardiovascular: Positive for: Normal S1, S2, Irregular Rhythm Abdomen: Positive for: Normal Bowel Sounds. Negative for: Tenderness, Distention, Mass/Organomegaly Upper Extremity: Positive for: Normal Inspection, Normal ROM, NORMAL PULSES, Neurovascularly Intact, Capillary Refill < 2s. Negative for: Cyanosis, Edema Lower Extremity: Positive for: Normal Inspection, NORMAL PULSES, Normal ROM, Neurovascularly Intact, Capillary Refill < 2 s. Negative for: Edema, CALF TENDERNESS Neurological: Positive for: GCS=15, CN II-XII Intact, Speech Normal Skin: Positive for: Warm, Dry, Normal Color Psychiatric: Positive for: Alert, Oriented x 3 - Medications Active Medications: Active Medications Generic Name Dose Route Start Last Admin Trade Name Freq PRN Reason Stop Dose Admin Acetaminophen 650 mg 06/26/18 16:06 06/26/18 18:19 Tylenol 325mg Tab PO 650 mg Q6 PRN Administration Fever >100.4 F Amiodarone HCl 200 mg 07/11/18 10:00 07/14/18 10:26 Cordarone PO 200 mg DAILY MARIBETH Administration Apixaban 2.5 mg 07/05/18 14:30 07/13/18 13:37 Eliquis PO 2.5 mg Q48H MARIBETH Administration Budesonide 0.25 mg 07/07/18 20:00 07/14/18 07:54 Pulmicort Respules IH 0.25 mg RBID MARIBETH Administration Calcium Acetate 1,334 mg 07/08/18 17:00 07/14/18 12:51 Phoslo PO 1,334 mg TIDCC MARIBETH Administration Diltiazem HCl 240 mg 07/02/18 10:00 07/14/18 10:26 Cardizem Cd PO 240 mg DAILY MARIBETH Administration Docusate Sodium 100 mg 07/10/18 11:30 07/14/18 10:26 Colace PO 100 mg BID MARIBETH Administration Famotidine 20 mg 06/26/18 10:00 07/14/18 10:27 Pepcid PO 20 mg DAILY MARIBETH Administration Fluticasone/Vilanterol 1 puff 06/26/18 08:00 07/14/18 07:53 Breo Ellipta 200-25 Mcg Inh INH 1 puff RQD MARIBETH Administration Glipizide 10 mg 06/26/18 07:30 07/14/18 08:29 Glucotrol PO 10 mg ACBD MARIBETH Administration Guaifenesin/Dextromethorphan 10 ml 06/26/18 16:07 07/13/18 18:57 Robitussin Dm PO 10 ml Q4H PRN Administration Cough and congestion Home Med 1 drop 07/11/18 10:00 07/14/18 10:26 Patient's Own Drops OD 1 drop DAILY MARIBETH Administration Insulin Aspart 10 unit 06/25/18 23:00 Novolog SC ONCE MARIBETH Insulin Aspart 0 unit 06/26/18 07:30 07/14/18 12:51 Novolog SC 2 units ACHS MARIBETH Administration Protocol Insulin Detemir 12 unit 06/25/18 23:00 07/14/18 10:26 Levemir SC 12 units Q12H MARIBETH Administration Levothyroxine Sodium 150 mcg 06/26/18 06:30 07/14/18 06:59 Synthroid PO 150 mcg DAILY@0630 MARIBETH Administration Polyethylene Glycol 17 gm 07/10/18 16:30 07/14/18 08:29 Miralax PO 17 gm DAILY PRN Administration Constipation Promethazine HCl/Codeine 10 ml 07/02/18 16:06 07/14/18 10:27 Phenergan/Codeine Oral Syrup PO 10 ml Q8H PRN Administration Cough Rosuvastatin Calcium 5 mg 06/25/18 23:00 07/13/18 23:15 Crestor PO 5 mg HS MARIBETH Administration Tiotropium [place] 18 mcg 06/26/18 08:00 07/14/18 07:53 Spiriva INH 18 mcg RQ24 MARIBETH Administration - Patient Studies Lab Studies: Microbiology Studies 07/08/18 15:04 Blood Culture - Final Blood NO GROWTH AFTER 5 DAYS Gram Stain - Final TEST NOT PERFORMED 07/08/18 14:45 Blood Culture - Final Blood NO GROWTH AFTER 5 DAYS Gram Stain - Final TEST NOT PERFORMED Lab Studies 07/14/18 07/14/18 07/14/18 Range/Units 11:07 07:57 07:57 WBC 32.7 H (4.8-10.8) K/uL RBC 3.18 L (3.80-5.20) Mil/uL Hgb 8.7 L (11.0-16.0) g/dL Hct 27.6 L (34.0-47.0) % MCV 86.7 (81.0-99.0) fL MCH 27.5 (27.0-31.0) pg MCHC 31.7 L (33.0-37.0) g/dL RDW 16.4 H (11.5-14.5) % Plt Count 85 L (130-400) K/uL MPV 11.8 H (7.2-11.7) fL Neut % (Auto) 94.9 H (50.0-75.0) % Lymph % (Auto) 3.1 L (20.0-40.0) % [place] % (Auto) 1.8 (0.0-10.0) % Eos % (Auto) 0.1 (0.0-4.0) % Baso % (Auto) 0.1 (0.0-2.0) % Neut # (Auto) 31.0 H (1.8-7.0) K/uL Lymph # (Auto) 1.0 (1.0-4.3) K/uL [place] # (Auto) 0.6 (0.0-0.8) K/uL Eos # (Auto) 0.0 (0.0-0.7) K/uL Baso # (Auto) 0.0 (0.0-0.2) K/uL Neutrophils % (Manual) 95 H (50-75) % Band Neutrophils % 1 (0-2) % Lymphocytes % (Manual) 2 L (20-40) % Monocytes % (Manual) 1 (0-10) % Eosinophils % (Manual) 1 (0-4) % Platelet Estimate Decreased L (NORMAL) Hypochromasia (manual) Slight Anisocytosis (manual) Slight Sodium 131 L (132-148) mmol/L Potassium 5.4 H (3.6-5.2) mmol/L Chloride 90 L (98-107) mmol/L Carbon Dioxide 30 (22-30) mmol/L Anion Gap 17 (10-20) BUN 68 H (7-17) mg/dL Creatinine 4.1 H (0.7-1.2) mg/dL Est GFR ( Amer) 13 Est GFR (Non-Af Amer) 10 POC Glucose (mg/dL) 201 H (65-110) mg/dL Random Glucose 66 D (65-105) mg/dL Calcium 8.6 (8.6-10.4) mg/dl Phosphorus 3.5 (2.5-4.5) mg/dL Magnesium 2.2 (1.6-2.3) mg/dL Total Bilirubin 0.5 (0.2-1.3) mg/dL AST 31 (14-36) U/L ALT 33 (9-52) U/L Alkaline Phosphatase 163 H (38-126) U/L Total Protein 5.6 L (6.3-8.3) g/dL Albumin 2.8 L (3.5-5.0) g/dL Globulin 2.8 (2.2-3.9) gm/dL Albumin/Globulin Ratio 1.0 (1.0-2.1) 07/14/18 07/13/18 07/13/18 Range/Units 06:28 21:26 16:50 WBC (4.8-10.8) K/uL RBC (3.80-5.20) Mil/uL Hgb (11.0-16.0) g/dL Hct (34.0-47.0) % MCV (81.0-99.0) fL MCH (27.0-31.0) pg MCHC (33.0-37.0) g/dL RDW (11.5-14.5) % Plt Count (130-400) K/uL MPV (7.2-11.7) fL Neut % (Auto) (50.0-75.0) % Lymph % (Auto) (20.0-40.0) % [place] % (Auto) (0.0-10.0) % Eos % (Auto) (0.0-4.0) % Baso % (Auto) (0.0-2.0) % Neut # (Auto) (1.8-7.0) K/uL Lymph # (Auto) (1.0-4.3) K/uL [place] # (Auto) (0.0-0.8) K/uL Eos # (Auto) (0.0-0.7) K/uL Baso # (Auto) (0.0-0.2) K/uL Neutrophils % (Manual) (50-75) % Band Neutrophils % (0-2) % Lymphocytes % (Manual) (20-40) % Monocytes % (Manual) (0-10) % Eosinophils % (Manual) (0-4) % Platelet Estimate (NORMAL) Hypochromasia (manual) Anisocytosis (manual) Sodium (132-148) mmol/L Potassium (3.6-5.2) mmol/L Chloride (98-107) mmol/L Carbon Dioxide (22-30) mmol/L Anion Gap (10-20) BUN (7-17) mg/dL Creatinine (0.7-1.2) mg/dL Est GFR ( Amer) Est GFR (Non-Af Amer) POC Glucose (mg/dL) 77 134 H 165 H (65-110) mg/dL Random Glucose (65-105) mg/dL Calcium (8.6-10.4) mg/dl Phosphorus (2.5-4.5) mg/dL Magnesium (1.6-2.3) mg/dL Total Bilirubin (0.2-1.3) mg/dL AST (14-36) U/L ALT (9-52) U/L Alkaline Phosphatase (38-126) U/L Total Protein (6.3-8.3) g/dL Albumin (3.5-5.0) g/dL Globulin (2.2-3.9) gm/dL Albumin/Globulin Ratio (1.0-2.1) 07/13/18 07/13/18 Range/Units 11:18 06:52 WBC (4.8-10.8) K/uL RBC (3.80-5.20) Mil/uL Hgb (11.0-16.0) g/dL Hct (34.0-47.0) % MCV (81.0-99.0) fL MCH (27.0-31.0) pg MCHC (33.0-37.0) g/dL RDW (11.5-14.5) % Plt Count (130-400) K/uL MPV (7.2-11.7) fL Neut % (Auto) (50.0-75.0) % Lymph % (Auto) (20.0-40.0) % [place] % (Auto) (0.0-10.0) % Eos % (Auto) (0.0-4.0) % Baso % (Auto) (0.0-2.0) % Neut # (Auto) (1.8-7.0) K/uL Lymph # (Auto) (1.0-4.3) K/uL [place] # (Auto) (0.0-0.8) K/uL Eos # (Auto) (0.0-0.7) K/uL Baso # (Auto) (0.0-0.2) K/uL Neutrophils % (Manual) (50-75) % Band Neutrophils % (0-2) % Lymphocytes % (Manual) (20-40) % Monocytes % (Manual) (0-10) % Eosinophils % (Manual) (0-4) % Platelet Estimate (NORMAL) Hypochromasia (manual) Anisocytosis (manual) Sodium (132-148) mmol/L Potassium (3.6-5.2) mmol/L Chloride (98-107) mmol/L Carbon Dioxide (22-30) mmol/L Anion Gap (10-20) BUN (7-17) mg/dL Creatinine (0.7-1.2) mg/dL Est GFR ( Amer) Est GFR (Non-Af Amer) POC Glucose (mg/dL) 202 H 132 H (65-110) mg/dL Random Glucose (65-105) mg/dL Calcium (8.6-10.4) mg/dl Phosphorus (2.5-4.5) mg/dL Magnesium (1.6-2.3) mg/dL Total Bilirubin (0.2-1.3) mg/dL AST (14-36) U/L ALT (9-52) U/L Alkaline Phosphatase (38-126) U/L Total Protein (6.3-8.3) g/dL Albumin (3.5-5.0) g/dL Globulin (2.2-3.9) gm/dL Albumin/Globulin Ratio (1.0-2.1) Laboratory Results - last 24 hr 07/13/18 07/13/18 07/13/18 06:52 11:18 16:50 WBC RBC Hgb Hct MCV MCH MCHC RDW Plt Count MPV Neut % (Auto) Lymph % (Auto) [place] % (Auto) Eos % (Auto) Baso % (Auto) Neut # (Auto) Lymph # (Auto) [place] # (Auto) Eos # (Auto) Baso # (Auto) Neutrophils % (Manual) Band Neutrophils % Lymphocytes % (Manual) Monocytes % (Manual) Eosinophils % (Manual) Platelet Estimate Hypochromasia (manual) Anisocytosis (manual) Sodium Potassium Chloride Carbon Dioxide Anion Gap BUN Creatinine Est GFR ( Amer) Est GFR (Non-Af Amer) POC Glucose (mg/dL) 132 H 202 H 165 H Random Glucose Calcium Phosphorus Magnesium Total Bilirubin AST ALT Alkaline Phosphatase Total Protein Albumin Globulin Albumin/Globulin Ratio 07/13/18 07/14/18 07/14/18 21:26 06:28 07:57 WBC 32.7 H RBC 3.18 L Hgb 8.7 L Hct 27.6 L MCV 86.7 MCH 27.5 MCHC 31.7 L RDW 16.4 H Plt Count 85 L MPV 11.8 H Neut % (Auto) 94.9 H Lymph % (Auto) 3.1 L [place] % (Auto) 1.8 Eos % (Auto) 0.1 Baso % (Auto) 0.1 Neut # (Auto) 31.0 H Lymph # (Auto) 1.0 [place] # (Auto) 0.6 Eos # (Auto) 0.0 Baso # (Auto) 0.0 Neutrophils % (Manual) 95 H Band Neutrophils % 1 Lymphocytes % (Manual) 2 L Monocytes % (Manual) 1 Eosinophils % (Manual) 1 Platelet Estimate Decreased L Hypochromasia (manual) Slight Anisocytosis (manual) Slight Sodium Potassium Chloride Carbon Dioxide Anion Gap BUN Creatinine Est GFR ( Amer) Est GFR (Non-Af Amer) POC Glucose (mg/dL) 134 H 77 Random Glucose Calcium Phosphorus Magnesium Total Bilirubin AST ALT Alkaline Phosphatase Total Protein Albumin Globulin Albumin/Globulin Ratio 07/14/18 07/14/18 07:57 11:07 WBC RBC Hgb Hct MCV MCH MCHC RDW Plt Count MPV Neut % (Auto) Lymph % (Auto) [place] % (Auto) Eos % (Auto) Baso % (Auto) Neut # (Auto) Lymph # (Auto) [place] # (Auto) Eos # (Auto) Baso # (Auto) Neutrophils % (Manual) Band Neutrophils % Lymphocytes % (Manual) Monocytes % (Manual) Eosinophils % (Manual) Platelet Estimate Hypochromasia (manual) Anisocytosis (manual) Sodium 131 L Potassium 5.4 H Chloride 90 L Carbon Dioxide 30 Anion Gap 17 BUN 68 H Creatinine 4.1 H Est GFR ( Amer) 13 Est GFR (Non-Af Amer) 10 POC Glucose (mg/dL) 201 H Random Glucose 66 D Calcium 8.6 Phosphorus 3.5 Magnesium 2.2 Total Bilirubin 0.5 AST 31 ALT 33 Alkaline Phosphatase 163 H Total Protein 5.6 L Albumin 2.8 L Globulin 2.8 Albumin/Globulin Ratio 1.0 Fingerstick Blood Sugar Results: 165 Review of Systems - Review of Systems All systems: reviewed and no additional remarkable complaints except Critical Care Progress Note - Nutrition Nutrition: Nutrition Category Date Time Status Renal Diet [DIET] Diets 06/26/18 Breakfast Active Assessment/Plan (1) Atrial flutter Assessment and plan: 83 y o female with PMhx HTN, hypothyroidism, A-fib, DM, anemia, multiple myelo ma, CHF, and COPD who presented on this current admission with hyperglycemia and was admitted to medical floor for further management. S/p [employer] on 06/26/18 for tachycardia s/p HD, which required admission to ICU for A-fib with RVR. Was called to eval pt today s/p [employer] for tachycardia during HD on 07/09/18, rhythm strip demonstrated A-fib with RVR. Started on amiodarone po last ICU admission. (07/14) Readmitted to ICU for recurrent SVT while on PO amiodarone. Plan: Neuro: -AAOx3, no gross deficits on exam, will cont to monitor Cardio: -Afib with RVR broke with adenosine, brought to ICU for amiodarone bolusing, but not needed as patient converted to sinus upon arriving. Continuing amiodarone po, will need secondary drug to prevent further episodes of recurrent SVT. Dr. Gold, cardiology, to talk to EPS for medication alternatives, unlikely candidate for ablation. Continue Eliquis 2.5 mg renally dosed. Pulm: -Hx COPD continue Pulmicort, Spiriva, Fluticasone GI: -Renal diet -Pepcid Renal: -Hx ESRD on HD MWF -Nephro - Dr. Bill -EPO MWF Heme: - continue EPO ID: - Leukocytosis trending up - Afebrile -S/p Azithromycin and Cefepime for tx of PNA; on no current anbx regimen at this time -Flu swab neg -ID consulted (Dr. Luong), recs appreciated Endo: - hypothyroidism continue Synthroid 150 mcg daily - DM, Insulin aspart 20 U sc acb, Levemir 12 U sc q12h, Glipizide 10 mg PO acbd, SISS for coverage GI proph - Pepcid, DVT proph - SCD, Eliquis renally dosed Critical Care time 35 minutes Current Visit: Yes Status: Acute
--- NOTE | 2018-07-14 15:11 | CP.PCM.PN ---
Subjective - Date & Time of Evaluation Date of Evaluation: 07/14/18 - Subjective Subjective: nephew and hsi visting pt pt trnasferrred to icu no nasuea or vomitting no fever nurse is about to start amiadarone drip pt ate some what denies chstpain no sob pt feels better now Objective - Vital Signs/Intake and Output Vital Signs (last 24 hours): Temp Pulse Resp BP Pulse Ox 98.3 F 73 25 H 104/47 L 94 L 07/14/18 12:40 07/14/18 15:00 07/14/18 15:00 07/14/18 14:57 07/14/18 15:00 Intake and Output: 07/14/18 07/14/18 06:59 18:59 Intake Total 0 Balance 0 - Medications Medications: Current Medications Acetaminophen (Tylenol 325mg Tab) 650 mg PO Q6 PRN PRN Reason: Fever >100.4 F Last Admin: 06/26/18 18:19 Dose: 650 mg Amiodarone HCl (Cordarone) 200 mg PO DAILY [facility] [place] Last Admin: 07/14/18 10:26 Dose: 200 mg Apixaban (Eliquis) 2.5 mg PO Q48H [facility] Last Admin: 07/13/18 13:37 Dose: 2.5 mg Budesonide (Pulmicort Respules) 0.25 mg IH RBID [facility] Last Admin: 07/14/18 07:54 Dose: 0.25 mg Calcium Acetate (Phoslo) 1,334 mg PO TIDCC [facility] Last Admin: 07/14/18 12:51 Dose: 1,334 mg Diltiazem HCl (Cardizem Cd) 240 mg PO DAILY [facility] Last Admin: 07/14/18 10:26 Dose: 240 mg Docusate Sodium (Colace) 100 mg PO BID [facility] [place] Last Admin: 07/14/18 10:26 Dose: 100 mg Famotidine (Pepcid) 20 mg PO DAILY [facility] [place] Last Admin: 07/14/18 10:27 Dose: 20 mg Fluticasone/Vilanterol (Breo Ellipta 200-25 Mcg Inh) 1 puff INH RQD [facility] [place] Last Admin: 07/14/18 07:53 Dose: 1 puff Glipizide (Glucotrol) 10 mg PO ACBD [facility] Last Admin: 07/14/18 08:29 Dose: 10 mg Guaifenesin/Dextromethorphan (Robitussin Dm) 10 ml PO Q4H PRN PRN Reason: Cough and congestion Last Admin: 07/13/18 18:57 Dose: 10 ml Home Med (Patient's Own Drops) 1 drop OD DAILY [facility] Last Admin: 07/14/18 10:26 Dose: 1 drop Insulin Aspart (Novolog) 10 unit SC ONCE MARIBETH Insulin Aspart (Novolog) 0 unit SC ACHS [facility] [place]; Protocol Last Admin: 07/14/18 12:51 Dose: 2 units Insulin Detemir (Levemir) 12 unit SC Q12H [facility]IBETH Last Admin: 07/14/18 10:26 Dose: 12 units Levothyroxine Sodium (Synthroid) 150 mcg PO DAILY@0630 [facility] Last Admin: 07/14/18 06:59 Dose: 150 mcg Polyethylene Glycol (Miralax) 17 gm PO DAILY PRN PRN Reason: Constipation Last Admin: 07/14/18 08:29 Dose: 17 gm Promethazine HCl/Codeine (Phenergan/Codeine Oral Syrup) 10 ml PO Q8H PRN PRN Reason: Cough Last Admin: 07/14/18 10:27 Dose: 10 ml Rosuvastatin Calcium (Crestor) 5 mg PO HS [facility] Last Admin: 07/13/18 23:15 Dose: 5 mg Tiotropium [place] (Spiriva) 18 mcg INH RQ24 [facility] Last Admin: 07/14/18 07:53 Dose: 18 mcg - Labs Labs: 07/14/18 07:57 07/14/18 07:57 - Constitutional Appears: Well - Head Exam Head Exam: ATRAUMATIC, NORMAL INSPECTION, NORMOCEPHALIC - Eye Exam Eye Exam: EOMI, Normal appearance, PERRL Pupil Exam: NORMAL ACCOMODATION, PERRL - ENT Exam ENT Exam: Mucous Membranes Moist, Normal Exam - Neck Exam Neck Exam: Full ROM, Normal Inspection. absent: Lymphadenopathy - Respiratory Exam Respiratory Exam: Decreased Breath Sounds - Cardiovascular Exam Cardiovascular Exam: REGULAR RHYTHM, +S1, +S2 - GI/Abdominal Exam GI & Abdominal Exam: Soft, Diminished Bowel Sounds - Rectal Exam Rectal Exam: Deferred - Neurological Exam Neurological Exam: Oriented x3 Assessment and Plan (1) CHF exacerbation Status: Acute (2) Dyspnea Status: Acute (3) ESRD (end stage renal disease) on dialysis Status: Acute (4) Uncontrolled diabetes mellitus Status: Acute (5) MARIA EUGENIA (acute kidney injury) Status: Acute (6) Abdominal pain Status: Acute (7) Acute bronchitis Status: Acute (8) Acute kidney injury Status: Acute (9) Acute kidney injury superimposed on chronic kidney disease Status: Acute (10) Acute respiratory failure Status: Acute (11) Anemia Status: Acute (12) Anemia of chronic disease Status: Acute (13) Atrial fibrillation with controlled ventricular response Status: Acute (14) Back pain of thoracolumbar region Status: Acute (15) Bronchitis Status: Acute (16) Bronchitis Status: Acute (17) CHF (congestive heart failure) Status: Acute (18) CHF (congestive heart failure) Status: Acute (19) CKD (chronic kidney disease) stage 3, GFR 30-59 ml/min Status: Acute (20) COPD (chronic obstructive pulmonary disease) Status: Acute (21) COPD exacerbation Status: Acute (22) COPD exacerbation Status: Acute (23) Chest pain Status: Acute (24) ESR raised Status: Acute (25) ESRD (end stage renal disease) Status: Acute (26) Fluid overload Status: Acute (27) Fluid overload, unspecified Status: Acute (28) Gastritis Status: Acute (29) Hepatitis Status: Acute (30) History of asthma Status: Acute (31) History of atrial fibrillation Status: Acute (32) History of back pain Status: Acute (33) History of gastroesophageal reflux (GERD) Status: Acute (34) Hypercalcemia Status: Acute (35) Hyperlipemia Status: Acute (36) Influenza Status: Acute (37) Leucocytosis Status: Acute (38) Lower extremity pain Status: Acute (39) Multiple myeloma Status: Acute (40) Multiple myeloma Status: Acute (41) Myeloma Status: Acute (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 (43) Occult gastrointestinal hemorrhage Status: Acute (44) Paroxysmal A-fib Status: Acute (45) Pneumonia Status: Acute (46) Prophylactic measure Status: Acute (47) Pulmonary hypertension Status: Acute (48) Pulmonary hypertension Status: Acute (49) Renal failure Status: Acute (50) Respiratory tract infection Status: Acute (51) Streptococcus pneumoniae Status: Acute (52) Symptomatic anemia Status: Acute (53) Vertigo Status: Acute (54) Worsening renal function Status: Acute (55) Anemia Status: Chronic (56) Asthma Status: Chronic (57) Atrial fibrillation Status: Chronic (58) Chronic diastolic (congestive) heart failure Status: Chronic (59) Diabetes Status: Chronic (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
--- NOTE | 2018-07-14 15:47 | CP.PCM.PN ---
Subjective - Date & Time of Evaluation Date of Evaluation: 07/14/18 Time of Evaluation: 08:00 - Subjective Subjective: events noted back in ICU for SVT awake alert in NAD Objective - Vital Signs/Intake and Output Vital Signs (last 24 hours): Temp Pulse Resp BP Pulse Ox 98.3 F 73 25 H 104/47 L 94 L 07/14/18 12:40 07/14/18 15:00 07/14/18 15:00 07/14/18 14:57 07/14/18 15:00 Intake and Output: 07/14/18 07/14/18 06:59 18:59 Intake Total 0 Balance 0 - Medications Medications: Current Medications Acetaminophen (Tylenol 325mg Tab) 650 mg PO Q6 PRN PRN Reason: Fever >100.4 F Last Admin: 06/26/18 18:19 Dose: 650 mg Amiodarone HCl (Cordarone) 200 mg PO DAILY [facility] Last Admin: 07/14/18 10:26 Dose: 200 mg Apixaban (Eliquis) 2.5 mg PO Q48H [facility] Last Admin: 07/13/18 13:37 Dose: 2.5 mg Budesonide (Pulmicort Respules) 0.25 mg IH RBID [facility] Last Admin: 07/14/18 07:54 Dose: 0.25 mg Calcium Acetate (Phoslo) 1,334 mg PO TIDCC [facility] Last Admin: 07/14/18 12:51 Dose: 1,334 mg Diltiazem HCl (Cardizem Cd) 240 mg PO DAILY [facility] Last Admin: 07/14/18 10:26 Dose: 240 mg Docusate Sodium (Colace) 100 mg PO BID [facility] Last Admin: 07/14/18 10:26 Dose: 100 mg Famotidine (Pepcid) 20 mg PO DAILY [facility] Last Admin: 07/14/18 10:27 Dose: 20 mg Fluticasone/Vilanterol (Breo Ellipta 200-25 Mcg Inh) 1 puff INH RQD [facility] Last Admin: 07/14/18 07:53 Dose: 1 puff Glipizide (Glucotrol) 10 mg PO ACBD [facility] Last Admin: 07/14/18 08:29 Dose: 10 mg Guaifenesin/Dextromethorphan (Robitussin Dm) 10 ml PO Q4H PRN PRN Reason: Cough and congestion Last Admin: 07/13/18 18:57 Dose: 10 ml Home Med (Patient's Own Drops) 1 drop OD DAILY [facility] Last Admin: 07/14/18 10:26 Dose: 1 drop Insulin Aspart (Novolog) 10 unit SC ONCE [facility] Insulin Aspart (Novolog) 0 unit SC ACHS [facility]; Protocol Last Admin: 07/14/18 12:51 Dose: 2 units Insulin Detemir (Levemir) 12 unit SC Q12H [facility] Last Admin: 07/14/18 10:26 Dose: 12 units Levothyroxine Sodium (Synthroid) 150 mcg PO DAILY@0630 [facility] Last Admin: 07/14/18 06:59 Dose: 150 mcg Polyethylene Glycol (Miralax) 17 gm PO DAILY PRN PRN Reason: Constipation Last Admin: 07/14/18 08:29 Dose: 17 gm Promethazine HCl/Codeine (Phenergan/Codeine Oral Syrup) 10 ml PO Q8H PRN PRN Reason: Cough Last Admin: 07/14/18 10:27 Dose: 10 ml Rosuvastatin Calcium (Crestor) 5 mg PO HS [facility] Last Admin: 07/13/18 23:15 Dose: 5 mg Tiotropium [place] (Spiriva) 18 mcg INH RQ24 [facility] Last Admin: 07/14/18 07:53 Dose: 18 mcg - Labs Labs: 07/14/18 07:57 07/14/18 07:57 - Constitutional Appears: Non-toxic, Chronically Ill - Head Exam Head Exam: NORMOCEPHALIC - Eye Exam Eye Exam: absent: Scleral icterus - ENT Exam ENT Exam: Mucous Membranes Dry - Neck Exam Neck Exam: absent: Lymphadenopathy - Respiratory Exam Respiratory Exam: Decreased Breath Sounds - Cardiovascular Exam Cardiovascular Exam: REGULAR RHYTHM - GI/Abdominal Exam GI & Abdominal Exam: Distended, Soft - Rectal Exam Rectal Exam: Deferred - Exam Exam: NORMAL INSPECTION - Extremities Exam Extremities Exam: Pedal Edema - Back Exam Back Exam: absent: CVA tenderness (L), CVA tenderness (R) - Neurological Exam Neurological Exam: Alert, Awake, CN II-XII Intact, Oriented x3 Neuro motor strength exam: Left Upper Extremity: 3, Right Upper Extremity: 3, Left Lower Extremity: 3, Right Lower Extremity: 3 - Psychiatric Exam Psychiatric exam: Depressed - Skin Skin Exam: Dry Assessment and Plan (1) CHF exacerbation Status: Acute (2) Chronic a-fib Status: Acute (3) Dyspnea Status: Acute (4) ESRD (end stage renal disease) on dialysis Status: Acute (5) Uncontrolled diabetes mellitus Status: Acute - Assessment and Plan (Free Text) Assessment: s/p SVT Hx Myeloma severe COPD/ CHF resp insufficiency cont IV rx
[2018-07-14] MEDS ORDERED: Dextrose 50% SYRINGE Inj (50 ml) IV STA (16:15)
[2018-07-14] MEDS ORDERED: Dextrose 50% SYRINGE Inj (50 ml) ONE (16:17)
[2018-07-14] MEDS: Micafungin 100 MG in Sodium Chloride 0.9% 100 ML IV SCH (17:23)
--- NOTE | 2018-07-14 17:41 | CP.PCM.PN ---
Subjective - Date & Time of Evaluation Date of Evaluation: 07/14/18 Time of Evaluation: 17:41 - Subjective Subjective: Patient seen and examined No events overnight Objective - Vital Signs/Intake and Output Vital Signs (last 24 hours): Temp Pulse Resp BP Pulse Ox 98.3 F 81 29 H 101/48 L 93 L 07/14/18 12:40 07/14/18 16:00 07/14/18 16:00 07/14/18 15:57 07/14/18 16:00 Intake and Output: 07/14/18 07/14/18 06:59 18:59 Intake Total 360 Balance 360 - Medications Medications: Current Medications Acetaminophen (Tylenol 325mg Tab) 650 mg PO Q6 PRN PRN Reason: Fever >100.4 F Last Admin: 06/26/18 18:19 Dose: 650 mg Amiodarone HCl (Cordarone) 200 mg PO TID [facility] Last Admin: 07/14/18 17:23 Dose: 200 mg Apixaban (Eliquis) 2.5 mg PO Q48H [facility] Last Admin: 07/13/18 13:37 Dose: 2.5 mg Budesonide (Pulmicort Respules) 0.25 mg IH RBID [facility] Last Admin: 07/14/18 07:54 Dose: 0.25 mg Calcium Acetate (Phoslo) 1,334 mg PO TIDCC [facility] Last Admin: 07/14/18 16:39 Dose: 1,334 mg Diltiazem HCl (Cardizem Cd) 240 mg PO DAILY [facility] Last Admin: 07/14/18 10:26 Dose: 240 mg Docusate Sodium (Colace) 100 mg PO BID [facility] Last Admin: 07/14/18 17:23 Dose: 100 mg Famotidine (Pepcid) 20 mg PO DAILY [facility] Last Admin: 07/14/18 10:27 Dose: 20 mg Fluticasone/Vilanterol (Breo Ellipta 200-25 Mcg Inh) 1 puff INH RQD [facility] Last Admin: 07/14/18 07:53 Dose: 1 puff Glipizide (Glucotrol) 10 mg PO ACBD [facility] Last Admin: 07/14/18 16:41 Dose: Not Given Guaifenesin/Dextromethorphan (Robitussin Dm) 10 ml PO Q4H PRN PRN Reason: Cough and congestion Last Admin: 07/13/18 18:57 Dose: 10 ml Home Med (Patient's Own Drops) 1 drop OD DAILY [facility] Last Admin: 07/14/18 10:26 Dose: 1 drop Micafungin Sodium 100 mg/ (Sodium Chloride) 100 mls @ 100 mls/hr IV Q24H [facility]; Protocol Last Admin: 07/14/18 17:23 Dose: 100 mls/hr Insulin Aspart (Novolog) 10 unit SC ONCE [facility] Insulin Aspart (Novolog) 0 unit SC ACHS [facility]; Protocol Last Admin: 07/14/18 16:40 Dose: Not Given Insulin Detemir (Levemir) 12 unit SC Q12H [facility] Last Admin: 07/14/18 10:26 Dose: 12 units Levothyroxine Sodium (Synthroid) 150 mcg PO DAILY@0630 [facility] Last Admin: 07/14/18 06:59 Dose: 150 mcg Polyethylene Glycol (Miralax) 17 gm PO DAILY PRN PRN Reason: Constipation Last Admin: 07/14/18 08:29 Dose: 17 gm Promethazine HCl/Codeine (Phenergan/Codeine Oral Syrup) 10 ml PO Q8H PRN PRN Reason: Cough Last Admin: 07/14/18 10:27 Dose: 10 ml Rosuvastatin Calcium (Crestor) 5 mg PO HS [facility] Last Admin: 07/13/18 23:15 Dose: 5 mg Tiotropium [place] (Spiriva) 18 mcg INH RQ24 [facility] Last Admin: 07/14/18 07:53 Dose: 18 mcg - Labs Labs: 07/14/18 07:57 07/14/18 07:57 - Head Exam Head Exam: NORMAL INSPECTION - Eye Exam Eye Exam: Normal appearance - ENT Exam ENT Exam: Mucous Membranes Moist - Respiratory Exam Respiratory Exam: Prolonged Expiratory Phase - Cardiovascular Exam Cardiovascular Exam: REGULAR RHYTHM, +S1, +S2 - GI/Abdominal Exam GI & Abdominal Exam: Soft, Normal Bowel Sounds - Extremities Exam Extremities Exam: Normal Inspection - Neurological Exam Neurological Exam: Alert, Oriented x3 - Psychiatric Exam Psychiatric exam: Normal Affect, Normal Mood Assessment and Plan (1) CHF exacerbation Status: Acute (2) Dyspnea Status: Acute (3) Atrial fibrillation with RVR Status: Resolved (4) COPD (chronic obstructive pulmonary disease) Status: Acute (5) ESRD (end stage renal disease) Status: Acute - Assessment and Plan (Free Text) Plan: Breo Ellipta Ipratromium as needed HD as per schedule DVT/GI prophalaxis
[2018-07-15 06:34] LABS: BASO % 0.2 % (0.0-2.0); EOS % 0.1 % (0.0-4.0); HEMOGLOBIN 8.9 g/dL (11.0-16.0); LYMPH # 0.8 K/uL (1.0-4.3); LYMPH % 3.2 % (20.0-40.0); MEAN CORPUSCULAR HEMOGLOBIN 27.3 pg (27.0-31.0); MEAN CORPUSCULAR HGB CONC 31.4 g/dL (33.0-37.0); MEAN PLATELET VOLUME 11.9 fL (7.2-11.7); MONO # 0.4 K/uL (0.0-0.8); MONO % 1.8 % (0.0-10.0); NEUT # 23.8 K/uL (1.8-7.0); NEUT % 94.7 % (50.0-75.0); NRBC % 0.1 % (0.0-2.0); PLATELET COUNT 79 K/uL (130-400); RBC 3.26 Mil/uL (3.80-5.20); RED CELL DISTRIBUTION WIDTH 16.3 % (11.5-14.5); WHITE BLOOD COUNT 25.1 K/uL (4.8-10.8)
[2018-07-15] MEDS: Fluticasone-Vilanterol 200/25mcg Diskus INH SCH (07:20)
[2018-07-15] MEDS: Budesonide 0.25 mg/2 ml Inhal Susp UD IH SCH ×2 (07:20→19:24)
--- NOTE | 2018-07-15 07:22 | CP.CCUPN ---
CCU Subjective - Physician Review Subjective (Free Text): ICU Progress Note for Dr. Giordano Pt seen and examined at bedside this am. Denies any acute complaints this am. Denies headache, dizziness, chest pain, sob, n/v/d/c, abd pain, urinary complaints, or other symptoms. No acute events reported overnight by staff. Amiodarone drip d/c'd. Pt to have HD today. CCU Objective - Vital Signs / Intake & Output Vital Signs (Last 4 hours): Vital Signs Temp Pulse Resp BP Pulse Ox 07/15/18 06:00 93 H 23 95 07/15/18 05:00 83 23 97 07/15/18 04:00 97.8 F 83 23 110/56 L 97 Intake and Output (Last 8hrs): Intake & Output 07/14/18 07/15/18 07/15/18 22:59 06:59 14:59 Intake Total 630 50 Output Total 0 Balance 630 50 Weight 143 lb 8 oz Intake: Intake, IV Amount 100 0 Right Forearm 100 0 Rt Forearm 0 Oral 530 50 Output: Urine 0 Urine, Voided 0 - Physical Exam Head: Positive for: Atraumatic, Normocephalic Pupils: Positive for: PERRL Extroacular Muscles: Positive for: EOMI Conjunctiva: Positive for: Normal Neck: Positive for: Normal Range of Motion. Negative for: Meningeal Signs, JVD, Lymphadenopathy Respiratory/Chest: Positive for: Clear to Auscultation, Good Air Exchange. Negative for: Respiratory Distress, Accessory Muscle Use, Wheezes, Rales, Rhonchi Cardiovascular: Positive for: Normal S1, S2, Irregular Rhythm, Tachycardic Abdomen: Positive for: Normal Bowel Sounds. Negative for: Tenderness, Distention, Mass/Organomegaly Upper Extremity: Positive for: Normal Inspection, Normal ROM, NORMAL PULSES, Neurovascularly Intact, Capillary Refill < 2s. Negative for: Cyanosis, Edema Lower Extremity: Positive for: Normal Inspection, NORMAL PULSES, Normal ROM, Neurovascularly Intact, Capillary Refill < 2 s. Negative for: Edema, CALF TENDERNESS Neurological: Positive for: GCS=15, CN II-XII Intact, Speech Normal Skin: Positive for: Warm, Dry, Normal Color Psychiatric: Positive for: Alert, Oriented x 3 - Medications Active Medications: Active Medications Generic Name Dose Route Start Last Admin Trade Name Freq PRN Reason Stop Dose Admin Acetaminophen 650 mg 03/13/19 16:06 06/26/18 18:19 Tylenol 325mg Tab PO 650 mg Q6 PRN Administration Fever >100.4 F Amiodarone HCl 200 mg 07/14/18 18:00 07/14/18 17:23 Cordarone PO 200 mg TID [facility] Administration Apixaban 2.5 mg 07/05/18 14:30 07/13/18 13:37 Eliquis PO 2.5 mg Q48H [facility] Administration Budesonide 0.25 mg 07/07/18 20:00 07/14/18 19:43 Pulmicort Respules IH 0.25 mg RBID [facility] Administration Calcium Acetate 1,334 mg 07/08/18 17:00 07/14/18 16:39 Phoslo PO 1,334 mg TIDCC [facility] Administration Diltiazem HCl 240 mg 07/02/18 10:00 07/14/18 10:26 Cardizem Cd PO 240 mg DAILY [facility] Administration Docusate Sodium 100 mg 07/10/18 11:30 07/14/18 17:23 Colace PO 100 mg BID [facility] Administration Famotidine 20 mg 06/26/18 10:00 07/14/18 10:27 Pepcid PO 20 mg DAILY [facility] Administration Fluticasone/Vilanterol 1 puff 06/26/18 08:00 07/14/18 07:53 Breo Ellipta 200-25 Mcg Inh INH 1 puff RQD [facility] Administration Glipizide 10 mg 06/26/18 07:30 07/14/18 16:41 Glucotrol PO Not Given ACBD [facility] Guaifenesin/Dextromethorphan 10 ml 06/26/18 16:07 07/13/18 18:57 Robitussin Dm PO 10 ml Q4H PRN Administration Cough and congestion Home Med 1 drop 07/11/18 10:00 07/14/18 10:26 Patient's Own Drops OD 1 drop DAILY [facility] Administration Micafungin Sodium 100 mg/ 100 mls @ 100 mls/hr 07/14/18 16:00 07/14/18 17:23 Sodium Chloride IV 100 mls/hr Q24H [facility] Administration Protocol Insulin Aspart 10 unit 06/25/18 23:00 Novolog SC ONCE [facility] Insulin Aspart 0 unit 06/26/18 07:30 07/14/18 22:33 Novolog SC Not Given ACHS [facility] Protocol Insulin Detemir 12 unit 06/25/18 23:00 07/14/18 22:48 Levemir SC Not Given Q12H [facility] Levothyroxine Sodium 150 mcg 06/26/18 06:30 07/14/18 06:59 Synthroid PO 150 mcg DAILY@0630 [facility] Administration Polyethylene Glycol 17 gm 07/10/18 16:30 07/14/18 08:29 Miralax PO 17 gm DAILY PRN Administration Constipation Promethazine HCl/Codeine 10 ml 07/02/18 16:06 07/14/18 10:27 Phenergan/Codeine Oral Syrup PO 10 ml Q8H PRN Administration Cough Rosuvastatin Calcium 5 mg 06/25/18 23:00 07/14/18 22:37 Crestor PO 5 mg HS [facility] Administration Tiotropium [place] 18 mcg 06/26/18 08:00 07/14/18 07:53 Spiriva INH 18 mcg RQ24 [facility] Administration - Patient Studies Lab Studies: Lab Studies 07/15/18 07/14/18 07/14/18 Range/Units 06:31 17:28 16:13 WBC 25.1 H (4.8-10.8) K/uL RBC 3.26 L (3.80-5.20) Mil/uL Hgb 8.9 L (11.0-16.0) g/dL Hct 28.4 L (34.0-47.0) % MCV 87.0 (81.0-99.0) fL MCH 27.3 (27.0-31.0) pg MCHC 31.4 L (33.0-37.0) g/dL RDW 16.3 H (11.5-14.5) % Plt Count 79 L (130-400) K/uL MPV 11.9 H (7.2-11.7) fL Neut % (Auto) 94.7 H (50.0-75.0) % Lymph % (Auto) 3.2 L (20.0-40.0) % [place] % (Auto) 1.8 (0.0-10.0) % Eos % (Auto) 0.1 (0.0-4.0) % Baso % (Auto) 0.2 (0.0-2.0) % Neut # (Auto) 23.8 H (1.8-7.0) K/uL Lymph # (Auto) 0.8 L (1.0-4.3) K/uL [place] # (Auto) 0.4 (0.0-0.8) K/uL Eos # (Auto) 0.0 (0.0-0.7) K/uL Baso # (Auto) 0.0 (0.0-0.2) K/uL Neutrophils % (Manual) (50-75) % Band Neutrophils % (0-2) % Lymphocytes % (Manual) (20-40) % Monocytes % (Manual) (0-10) % Eosinophils % (Manual) (0-4) % Platelet Estimate (NORMAL) Hypochromasia (manual) Anisocytosis (manual) Sodium (132-148) mmol/L Potassium (3.6-5.2) mmol/L Chloride (98-107) mmol/L Carbon Dioxide (22-30) mmol/L Anion Gap (10-20) BUN (7-17) mg/dL Creatinine (0.7-1.2) mg/dL Est GFR ( Amer) Est GFR (Non-Af Amer) POC Glucose (mg/dL) 218 H 53 L (65-110) mg/dL Random Glucose (65-105) mg/dL Calcium (8.6-10.4) mg/dl Phosphorus (2.5-4.5) mg/dL Magnesium (1.6-2.3) mg/dL Total Bilirubin (0.2-1.3) mg/dL AST (14-36) U/L ALT (9-52) U/L Alkaline Phosphatase (38-126) U/L Total Protein (6.3-8.3) g/dL Albumin (3.5-5.0) g/dL Globulin (2.2-3.9) gm/dL Albumin/Globulin Ratio (1.0-2.1) 07/14/18 07/14/18 07/14/18 Range/Units 16:11 15:59 15:56 WBC (4.8-10.8) K/uL RBC (3.80-5.20) Mil/uL Hgb (11.0-16.0) g/dL Hct (34.0-47.0) % MCV (81.0-99.0) fL MCH (27.0-31.0) pg MCHC (33.0-37.0) g/dL RDW (11.5-14.5) % Plt Count (130-400) K/uL MPV (7.2-11.7) fL Neut % (Auto) (50.0-75.0) % Lymph % (Auto) (20.0-40.0) % [place] % (Auto) (0.0-10.0) % Eos % (Auto) (0.0-4.0) % Baso % (Auto) (0.0-2.0) % Neut # (Auto) (1.8-7.0) K/uL Lymph # (Auto) (1.0-4.3) K/uL [place] # (Auto) (0.0-0.8) K/uL Eos # (Auto) (0.0-0.7) K/uL Baso # (Auto) (0.0-0.2) K/uL Neutrophils % (Manual) (50-75) % Band Neutrophils % (0-2) % Lymphocytes % (Manual) (20-40) % Monocytes % (Manual) (0-10) % Eosinophils % (Manual) (0-4) % Platelet Estimate (NORMAL) Hypochromasia (manual) Anisocytosis (manual) Sodium (132-148) mmol/L Potassium (3.6-5.2) mmol/L Chloride (98-107) mmol/L Carbon Dioxide (22-30) mmol/L Anion Gap (10-20) BUN (7-17) mg/dL Creatinine (0.7-1.2) mg/dL Est GFR ( Amer) Est GFR (Non-Af Amer) POC Glucose (mg/dL) 48 L 36 L* 42 L (65-110) mg/dL Random Glucose (65-105) mg/dL Calcium (8.6-10.4) mg/dl Phosphorus (2.5-4.5) mg/dL Magnesium (1.6-2.3) mg/dL Total Bilirubin (0.2-1.3) mg/dL AST (14-36) U/L ALT (9-52) U/L Alkaline Phosphatase (38-126) U/L Total Protein (6.3-8.3) g/dL Albumin (3.5-5.0) g/dL Globulin (2.2-3.9) gm/dL Albumin/Globulin Ratio (1.0-2.1) 07/14/18 07/14/18 07/14/18 Range/Units 11:07 07:57 07:57 WBC 32.7 H (4.8-10.8) K/uL RBC 3.18 L (3.80-5.20) Mil/uL Hgb 8.7 L (11.0-16.0) g/dL Hct 27.6 L (34.0-47.0) % MCV 86.7 (81.0-99.0) fL MCH 27.5 (27.0-31.0) pg MCHC 31.7 L (33.0-37.0) g/dL RDW 16.4 H (11.5-14.5) % Plt Count 85 L (130-400) K/uL MPV 11.8 H (7.2-11.7) fL Neut % (Auto) 94.9 H (50.0-75.0) % Lymph % (Auto) 3.1 L (20.0-40.0) % [place] % (Auto) 1.8 (0.0-10.0) % Eos % (Auto) 0.1 (0.0-4.0) % Baso % (Auto) 0.1 (0.0-2.0) % Neut # (Auto) 31.0 H (1.8-7.0) K/uL Lymph # (Auto) 1.0 (1.0-4.3) K/uL [place] # (Auto) 0.6 (0.0-0.8) K/uL Eos # (Auto) 0.0 (0.0-0.7) K/uL Baso # (Auto) 0.0 (0.0-0.2) K/uL Neutrophils % (Manual) 95 H (50-75) % Band Neutrophils % 1 (0-2) % Lymphocytes % (Manual) 2 L (20-40) % Monocytes % (Manual) 1 (0-10) % Eosinophils % (Manual) 1 (0-4) % Platelet Estimate Decreased L (NORMAL) Hypochromasia (manual) Slight Anisocytosis (manual) Slight Sodium 131 L (132-148) mmol/L Potassium 5.4 H (3.6-5.2) mmol/L Chloride 90 L (98-107) mmol/L Carbon Dioxide 30 (22-30) mmol/L Anion Gap 17 (10-20) BUN 68 H (7-17) mg/dL Creatinine 4.1 H (0.7-1.2) mg/dL Est GFR ( Amer) 13 Est GFR (Non-Af Amer) 10 POC Glucose (mg/dL) 201 H (65-110) mg/dL Random Glucose 66 D (65-105) mg/dL Calcium 8.6 (8.6-10.4) mg/dl Phosphorus 3.5 (2.5-4.5) mg/dL Magnesium 2.2 (1.6-2.3) mg/dL Total Bilirubin 0.5 (0.2-1.3) mg/dL AST 31 (14-36) U/L ALT 33 (9-52) U/L Alkaline Phosphatase 163 H (38-126) U/L Total Protein 5.6 L (6.3-8.3) g/dL Albumin 2.8 L (3.5-5.0) g/dL Globulin 2.8 (2.2-3.9) gm/dL Albumin/Globulin Ratio 1.0 (1.0-2.1) 07/13/18 07/13/18 Range/Units 11:18 06:52 WBC (4.8-10.8) K/uL RBC (3.80-5.20) Mil/uL Hgb (11.0-16.0) g/dL Hct (34.0-47.0) % MCV (81.0-99.0) fL MCH (27.0-31.0) pg MCHC (33.0-37.0) g/dL RDW (11.5-14.5) % Plt Count (130-400) K/uL MPV (7.2-11.7) fL Neut % (Auto) (50.0-75.0) % Lymph % (Auto) (20.0-40.0) % [place] % (Auto) (0.0-10.0) % Eos % (Auto) (0.0-4.0) % Baso % (Auto) (0.0-2.0) % Neut # (Auto) (1.8-7.0) K/uL Lymph # (Auto) (1.0-4.3) K/uL [place] # (Auto) (0.0-0.8) K/uL Eos # (Auto) (0.0-0.7) K/uL Baso # (Auto) (0.0-0.2) K/uL Neutrophils % (Manual) (50-75) % Band Neutrophils % (0-2) % Lymphocytes % (Manual) (20-40) % Monocytes % (Manual) (0-10) % Eosinophils % (Manual) (0-4) % Platelet Estimate (NORMAL) Hypochromasia (manual) Anisocytosis (manual) Sodium (132-148) mmol/L Potassium (3.6-5.2) mmol/L Chloride (98-107) mmol/L Carbon Dioxide (22-30) mmol/L Anion Gap (10-20) BUN (7-17) mg/dL Creatinine (0.7-1.2) mg/dL Est GFR ( Amer) Est GFR (Non-Af Amer) POC Glucose (mg/dL) 202 H 132 H (65-110) mg/dL Random Glucose (65-105) mg/dL Calcium (8.6-10.4) mg/dl Phosphorus (2.5-4.5) mg/dL Magnesium (1.6-2.3) mg/dL Total Bilirubin (0.2-1.3) mg/dL AST (14-36) U/L ALT (9-52) U/L Alkaline Phosphatase (38-126) U/L Total Protein (6.3-8.3) g/dL Albumin (3.5-5.0) g/dL Globulin (2.2-3.9) gm/dL Albumin/Globulin Ratio (1.0-2.1) Laboratory Results - last 24 hr 07/13/18 07/13/18 07/14/18 06:52 11:18 07:57 WBC 32.7 H RBC 3.18 L Hgb 8.7 L Hct 27.6 L MCV 86.7 MCH 27.5 MCHC 31.7 L RDW 16.4 H Plt Count 85 L MPV 11.8 H Neut % (Auto) 94.9 H Lymph % (Auto) 3.1 L [place] % (Auto) 1.8 Eos % (Auto) 0.1 Baso % (Auto) 0.1 Neut # (Auto) 31.0 H Lymph # (Auto) 1.0 [place] # (Auto) 0.6 Eos # (Auto) 0.0 Baso # (Auto) 0.0 Neutrophils % (Manual) 95 H Band Neutrophils % 1 Lymphocytes % (Manual) 2 L Monocytes % (Manual) 1 Eosinophils % (Manual) 1 Platelet Estimate Decreased L Hypochromasia (manual) Slight Anisocytosis (manual) Slight Sodium Potassium Chloride Carbon Dioxide Anion Gap BUN Creatinine Est GFR ( Amer) Est GFR (Non-Af Amer) POC Glucose (mg/dL) 132 H 202 H Random Glucose Calcium Phosphorus Magnesium Total Bilirubin AST ALT Alkaline Phosphatase Total Protein Albumin Globulin Albumin/Globulin Ratio 07/14/18 07/14/18 07/14/18 07:57 11:07 15:56 WBC RBC Hgb Hct MCV MCH MCHC RDW Plt Count MPV Neut % (Auto) Lymph % (Auto) [place] % (Auto) Eos % (Auto) Baso % (Auto) Neut # (Auto) Lymph # (Auto) [place] # (Auto) Eos # (Auto) Baso # (Auto) Neutrophils % (Manual) Band Neutrophils % Lymphocytes % (Manual) Monocytes % (Manual) Eosinophils % (Manual) Platelet Estimate Hypochromasia (manual) Anisocytosis (manual) Sodium 131 L Potassium 5.4 H Chloride 90 L Carbon Dioxide 30 Anion Gap 17 BUN 68 H Creatinine 4.1 H Est GFR ( Amer) 13 Est GFR (Non-Af Amer) 10 POC Glucose (mg/dL) 201 H 42 L Random Glucose 66 D Calcium 8.6 Phosphorus 3.5 Magnesium 2.2 Total Bilirubin 0.5 AST 31 ALT 33 Alkaline Phosphatase 163 H Total Protein 5.6 L Albumin 2.8 L Globulin 2.8 Albumin/Globulin Ratio 1.0 07/14/18 07/14/18 07/14/18 15:59 16:11 16:13 WBC RBC Hgb Hct MCV MCH MCHC RDW Plt Count MPV Neut % (Auto) Lymph % (Auto) [place] % (Auto) Eos % (Auto) Baso % (Auto) Neut # (Auto) Lymph # (Auto) [place] # (Auto) Eos # (Auto) Baso # (Auto) Neutrophils % (Manual) Band Neutrophils % Lymphocytes % (Manual) Monocytes % (Manual) Eosinophils % (Manual) Platelet Estimate Hypochromasia (manual) Anisocytosis (manual) Sodium Potassium Chloride Carbon Dioxide Anion Gap BUN Creatinine Est GFR ( Amer) Est GFR (Non-Af Amer) POC Glucose (mg/dL) 36 L* 48 L 53 L Random Glucose Calcium Phosphorus Magnesium Total Bilirubin AST ALT Alkaline Phosphatase Total Protein Albumin Globulin Albumin/Globulin Ratio 07/14/18 07/15/18 17:28 06:31 WBC 25.1 H RBC 3.26 L Hgb 8.9 L Hct 28.4 L MCV 87.0 MCH 27.3 MCHC 31.4 L RDW 16.3 H Plt Count 79 L MPV 11.9 H Neut % (Auto) 94.7 H Lymph % (Auto) 3.2 L [place] % (Auto) 1.8 Eos % (Auto) 0.1 Baso % (Auto) 0.2 Neut # (Auto) 23.8 H Lymph # (Auto) 0.8 L [place] # (Auto) 0.4 Eos # (Auto) 0.0 Baso # (Auto) 0.0 Neutrophils % (Manual) Band Neutrophils % Lymphocytes % (Manual) Monocytes % (Manual) Eosinophils % (Manual) Platelet Estimate Hypochromasia (manual) Anisocytosis (manual) Sodium Potassium Chloride Carbon Dioxide Anion Gap BUN Creatinine Est GFR ( Amer) Est GFR (Non-Af Amer) POC Glucose (mg/dL) 218 H Random Glucose Calcium Phosphorus Magnesium Total Bilirubin AST ALT Alkaline Phosphatase Total Protein Albumin Globulin Albumin/Globulin Ratio Fingerstick Blood Sugar Results: 174 Review of Systems - Constitutional Constitutional: absent: Fever, Chills - EENT Eyes: absent: Change in Vision - Cardiovascular Cardiovascular: absent: Chest Pain, Dyspnea, Edema, Palpitations, Paroxysmal Nocturnal Dyspnea, Syncope - Respiratory Respiratory: absent: Cough, Dyspnea, Wheezing - Gastrointestinal Gastrointestinal: absent: Abdominal Pain, Constipation, Diarrhea, Nausea, Vomiting - Neurological Neurological: absent: Numbness, Tingling, Tremor Critical Care Progress Note - Nutrition Nutrition: Nutrition Category Date Time Status Renal Diet [DIET] Diets 06/26/18 Breakfast Active Assessment/Plan - Assessment and Plan (Free Text) Assessment: 83 y o female with PMhx HTN, hypothyroidism, A-fib, DM, anemia, multiple myeloma, CHF, and COPD who presented on this current admission with hyperglycemia and was admitted to medical floor for further management. S/p AUDITING MANAGER on 06/26/18 for tachycardia s/p HD, which required admission to ICU for A-fib with RVR. S/p AUDITING MANAGER for tachycardia during HD on 07/09/18, rhythm strip demonstrated A-fib with RVR. Started on amiodarone po last ICU admission. On 07/14/18 was readmitted to ICU for recurrent SVT while on PO amiodarone, was given adenosine which converted rhythm to A-flutter. Currently off amiodarone drip. Will continue to monitor HR while pt is receiving HD today. Plan: Neuro: -AAOx3, no gross deficits on exam, will cont to monitor Cardio: -Afib with RVR broke with adenosine, brought to ICU for amiodarone bolusing, but not needed as patient converted to sinus upon arriving. Continuing amiodarone po, will need secondary drug to prevent further episodes of recurrent SVT. Dr. Gold, Cardiology, to talk to EPS for medication alternatives, unlikely candidate for ablation. Continue Eliquis 2.5 mg renally dosed. -C/w Amiodarone PO tid, Cardizem daily Pulm: -Hx COPD -C/w Pulmicort, Spiriva, Fluticasone GI: -Renal diet -Pepcid Renal: -Hx ESRD on HD MWF -Nephro - Dr. Bill -EPO [facility] Heme: -C/w EPO ID: -Leukocytosis trending up -Afebrile -S/p Azithromycin and Cefepime for tx of PNA; on no current anbx regimen at this time -Flu swab neg -ID consulted (Dr. Luong), recs appreciated Endo: -Hx hypothyroidism; continue Synthroid 150 mcg daily -Hx DM; Insulin aspart 20 U sc acb, Levemir 12 U sc q12h, Glipizide 10 mg PO acbd, SISS for coverage PPX: -GI proph - Pepcid, -DVT proph - SCD, Eliquis renally dosed Pt seen, examined with, and plan discussed with Dr. Giordano, attending physician. Mandeep Garduno, DO PGY-1, [employer] Pager #[phone]
[2018-07-15] MEDS: Levothyroxine 150 MCG TAB PO SCH (07:33)
[2018-07-15] MEDS: (Novolog) Insulin Aspart, Recombinant 100 u/ml 10 ml vial SC SCH ×4 (08:00→22:32)
[2018-07-15 09:12] LABS: LYMPHOCYTE 2 % (20-40); MONOCYTE 2 % (0-10); NEUTROPHIL 96 % (50-75); TOTAL CELLS COUNTED 100
[2018-07-15 09:13] LABS: ANISOCYTOSIS SLIGHT; HYPOCHROMIC SLIGHT; PLATELET ESTIMATE DECREASED (NORMAL)
[2018-07-15 09:14] LABS: POLYCHROMIC SLIGHT; TARGET CELLS SLIGHT
[2018-07-15] MEDS: diltiaZEM 240 mg/24 Hours CD Cap PO SCH (09:37)
[2018-07-15] MEDS: BROMFENAC 0.07% OD SCH (09:40)
[2018-07-15 10:12] LABS: ALB/GLOB RATIO 0.9 (1.0-2.1); ALBUMIN 2.7 g/dL (3.5-5.0); CALCIUM 8.4 mg/dl (8.6-10.4)
--- NOTE | 2018-07-15 11:25 | CP.PCM.PN ---
Subjective - Date & Time of Evaluation Date of Evaluation: 07/15/18 Time of Evaluation: 11:21 - Subjective Subjective: Returned to ICU for SVT Failed adenosine x 2 On increased amiodraone; still wth VR 150s alert on dialysis - UF 1500ml K elevated- changed to 1 K bath Objective - Vital Signs/Intake and Output Vital Signs (last 24 hours): Temp Pulse Resp BP Pulse Ox 97.8 F 92 H 23 126/48 L 96 07/15/18 04:00 07/15/18 07:35 07/15/18 07:35 07/15/18 07:35 07/15/18 07:35 Intake and Output: 07/15/18 07/15/18 06:59 18:59 Intake Total 100 0 Output Total 0 Balance 100 0 - Medications Medications: Current Medications Acetaminophen (Tylenol 325mg Tab) 650 mg PO Q6 PRN PRN Reason: Fever >100.4 F Last Admin: 06/26/18 18:19 Dose: 650 mg Amiodarone HCl (Cordarone) 200 mg PO TID [facility] Last Admin: 07/15/18 09:35 Dose: 200 mg Apixaban (Eliquis) 2.5 mg PO Q48H [facility] Last Admin: 07/13/18 13:37 Dose: 2.5 mg Budesonide (Pulmicort Respules) 0.25 mg IH RBID [facility] Last Admin: 07/15/18 07:20 Dose: 0.25 mg Calcium Acetate (Phoslo) 1,334 mg PO TIDCC [facility] Last Admin: 07/15/18 09:00 Dose: 1,334 mg Diltiazem HCl (Cardizem Cd) 240 mg PO DAILY [facility] Last Admin: 07/15/18 09:37 Dose: 240 mg Docusate Sodium (Colace) 100 mg PO BID [facility] Last Admin: 07/15/18 09:37 Dose: 100 mg Famotidine (Pepcid) 20 mg PO DAILY [facility] Last Admin: 07/15/18 09:36 Dose: 20 mg Fluticasone/Vilanterol (Breo Ellipta 200-25 Mcg Inh) 1 puff INH RQD [facility] Last Admin: 07/15/18 07:20 Dose: 1 puff Glipizide (Glucotrol) 10 mg PO ACBD [facility] Last Admin: 07/15/18 08:00 Dose: Not Given Home Med (Patient's Own Drops) 1 drop OD DAILY [facility] Last Admin: 07/15/18 09:40 Dose: 1 drop Micafungin Sodium 100 mg/ (Sodium Chloride) 100 mls @ 100 mls/hr IV Q24H [facility]; Protocol Last Admin: 07/14/18 17:23 Dose: 100 mls/hr Insulin Aspart (Novolog) 10 unit SC ONCE MARIBETH Insulin Aspart (Novolog) 0 unit SC ACHS [facility]; Protocol Last Admin: 07/15/18 08:00 Dose: Not Given Insulin Detemir (Levemir) 12 unit SC Q12H [facility] Last Admin: 07/14/18 22:48 Dose: Not Given Levothyroxine Sodium (Synthroid) 150 mcg PO DAILY@0630 [facility] Last Admin: 07/15/18 07:33 Dose: 150 mcg Polyethylene Glycol (Miralax) 17 gm PO DAILY PRN PRN Reason: Constipation Last Admin: 07/14/18 08:29 Dose: 17 gm Rosuvastatin Calcium (Crestor) 5 mg PO HS [facility] Last Admin: 07/14/18 22:37 Dose: 5 mg Tiotropium [place] (Spiriva) 18 mcg INH RQ24 [facility] Last Admin: 07/14/18 07:53 Dose: 18 mcg - Labs Labs: 07/15/18 06:31 07/15/18 09:35 - Constitutional Appears: No Acute Distress, Chronically Ill - Head Exam Head Exam: ATRAUMATIC, NORMAL INSPECTION - Eye Exam Eye Exam: EOMI, Normal appearance - Neck Exam Neck Exam: Normal Inspection. absent: Tenderness - Respiratory Exam Respiratory Exam: Clear to Ausculation Bilateral, NORMAL BREATHING PATTERN - Cardiovascular Exam Cardiovascular Exam: Tachycardia, Irregular Rhythm - GI/Abdominal Exam GI & Abdominal Exam: Soft. absent: Tenderness - Extremities Exam Extremities Exam: absent: Pedal Edema, Tenderness - Neurological Exam Neurological Exam: Awake, CN II-XII Intact - Skin Skin Exam: Dry, Warm Assessment and Plan (1) Atrial fibrillation with RVR Status: Resolved (2) CHF exacerbation Status: Acute (3) COPD exacerbation Status: Acute (4) Multiple myeloma Status: Acute - Assessment and Plan (Free Text) Plan: dialysis now- UF 1500ml management of SVT; lower eliquis dose due to bleeding monitor camille
--- NOTE | 2018-07-15 11:43 | RAD ---
Chest x-ray single frontal view HISTORY: Chest pain. COMPARISON: 07/07/2018 FINDINGS: Left chest wall port with tip extending into the right atrium. Moderate venous congestion. Patchy increased markings in the right hilar region and left lung base. Small left pleural effusion. Dense calcification projecting over the heart. Enlarged ectatic aorta with atherosclerotic calcification and plaque. Cardiomegaly. Degenerative changes in the spine and shoulders. Impression: Left chest wall port with tip extending into the right atrium. Moderate venous congestion. Patchy increased markings in the right hilar region and left lung base. Small left pleural effusion. Dense calcification projecting over the heart. Enlarged ectatic aorta with atherosclerotic calcification and plaque. Cardiomegaly.
[2018-07-15] MEDS: Insulin Detemir 100 units/ml Vial (Levemir) SC SCH ×2 (11:50→22:25)
--- NOTE | 2018-07-15 11:58 | CP.PCM.PN ---
Subjective - Date & Time of Evaluation Date of Evaluation: 07/15/18 Time of Evaluation: 08:00 - Subjective Subjective: seen on HD still tachycardic no new complaints afebrile Objective - Vital Signs/Intake and Output Vital Signs (last 24 hours): Temp Pulse Resp BP Pulse Ox 98 F 146 H 18 117/52 L 94 L 07/15/18 09:20 07/15/18 11:50 07/15/18 11:50 07/15/18 09:20 07/15/18 11:50 Intake and Output: 07/15/18 07/15/18 06:59 18:59 Intake Total 100 0 Output Total 0 Balance 100 0 - Medications Medications: Current Medications Acetaminophen (Tylenol 325mg Tab) 650 mg PO Q6 PRN PRN Reason: Fever >100.4 F Last Admin: 06/26/18 18:19 Dose: 650 mg Amiodarone HCl (Cordarone) 200 mg PO TID [facility] Last Admin: 07/15/18 09:35 Dose: 200 mg Apixaban (Eliquis) 2.5 mg PO Q48H [facility] Last Admin: 07/13/18 13:37 Dose: 2.5 mg Budesonide (Pulmicort Respules) 0.25 mg IH RBID [facility] Last Admin: 07/15/18 07:20 Dose: 0.25 mg Calcium Acetate (Phoslo) 1,334 mg PO TIDCC [facility] Last Admin: 07/15/18 11:52 Dose: 1,334 mg Digoxin (Lanoxin) 0.25 mg IVP ONCE ONE Stop: 07/15/18 11:43 Diltiazem HCl (Cardizem Cd) 240 mg PO DAILY [facility] Last Admin: 07/15/18 09:37 Dose: 240 mg Docusate Sodium (Colace) 100 mg PO BID [facility] Last Admin: 07/15/18 09:37 Dose: 100 mg Famotidine (Pepcid) 20 mg PO DAILY [facility] Last Admin: 07/15/18 09:36 Dose: 20 mg Fluticasone/Vilanterol (Breo Ellipta 200-25 Mcg Inh) 1 puff INH RQD [facility] Last Admin: 07/15/18 07:20 Dose: 1 puff Glipizide (Glucotrol) 10 mg PO ACBD [facility] Last Admin: 07/15/18 08:00 Dose: Not Given Home Med (Patient's Own Drops) 1 drop OD DAILY [facility] Last Admin: 07/15/18 09:40 Dose: 1 drop Micafungin Sodium 100 mg/ (Sodium Chloride) 100 mls @ 100 mls/hr IV Q24H [facility]; Protocol Last Admin: 07/14/18 17:23 Dose: 100 mls/hr Insulin Aspart (Novolog) 10 unit SC ONCE [facility] Insulin Aspart (Novolog) 0 unit SC ACHS [facility]; Protocol Last Admin: 07/15/18 08:00 Dose: Not Given Insulin Detemir (Levemir) 12 unit SC Q12H [facility] Last Admin: 07/15/18 11:50 Dose: 12 units Levothyroxine Sodium (Synthroid) 150 mcg PO DAILY@0630 [facility] Last Admin: 07/15/18 07:33 Dose: 150 mcg Polyethylene Glycol (Miralax) 17 gm PO DAILY PRN PRN Reason: Constipation Last Admin: 07/14/18 08:29 Dose: 17 gm Rosuvastatin Calcium (Crestor) 5 mg PO HS [facility] Last Admin: 07/14/18 22:37 Dose: 5 mg Tiotropium [place] (Spiriva) 18 mcg INH RQ24 [facility] Last Admin: 07/14/18 07:53 Dose: 18 mcg - Labs Labs: 07/15/18 06:31 07/15/18 09:35 - Constitutional Appears: No Acute Distress, Cachectic, Chronically Ill - Head Exam Head Exam: NORMOCEPHALIC - Eye Exam Eye Exam: absent: Scleral icterus Pupil Exam: NORMAL ACCOMODATION - ENT Exam ENT Exam: Mucous Membranes Dry, Normal External Ear Exam - Respiratory Exam Respiratory Exam: Decreased Breath Sounds, Prolonged Expiratory Phase, Rales, Rhonchi - Cardiovascular Exam Cardiovascular Exam: REGULAR RHYTHM - GI/Abdominal Exam GI & Abdominal Exam: Distended - Rectal Exam Rectal Exam: Deferred - Exam Exam: NORMAL INSPECTION - Extremities Exam Extremities Exam: absent: Calf Tenderness - Back Exam Back Exam: absent: CVA tenderness (L), CVA tenderness (R) - Neurological Exam Neurological Exam: Alert, Awake, CN II-XII Intact Assessment and Plan (1) CHF exacerbation Status: Acute (2) Chronic a-fib Status: Acute (3) Dyspnea Status: Acute (4) ESRD (end stage renal disease) on dialysis Status: Acute (5) Uncontrolled diabetes mellitus Status: Acute - Assessment and Plan (Free Text) Assessment: will reculture cont supportive Rx
[2018-07-15] MEDS ORDERED: Digoxin 500 mcg/2ml (0.5 mg/2ml) Inj IVP ONE (12:15)
[2018-07-15] MEDS: Micafungin 100 MG in Sodium Chloride 0.9% 100 ML IV SCH (17:00)
--- NOTE | 2018-07-15 17:38 | CP.PCM.PN ---
Subjective - Date & Time of Evaluation Date of Evaluation: 07/15/18 Time of Evaluation: 17:37 - Subjective Subjective: Patient seen and examined No events overnight Objective - Vital Signs/Intake and Output Vital Signs (last 24 hours): Temp Pulse Resp BP Pulse Ox 98.4 F 98 H 19 97/36 L 96 07/15/18 16:00 07/15/18 17:00 07/15/18 17:00 07/15/18 17:00 07/15/18 17:00 Intake and Output: 07/15/18 07/15/18 06:59 18:59 Intake Total 100 300 Output Total 0 Balance 100 300 - Medications Medications: Current Medications Acetaminophen (Tylenol 325mg Tab) 650 mg PO Q6 PRN PRN Reason: Fever >100.4 F Last Admin: 06/26/18 18:19 Dose: 650 mg Amiodarone HCl (Cordarone) 200 mg PO TID [facility] Last Admin: 07/15/18 17:24 Dose: 200 mg Apixaban (Eliquis) 2.5 mg PO Q48H [facility] Last Admin: 07/15/18 15:00 Dose: 2.5 mg Budesonide (Pulmicort Respules) 0.25 mg IH RBID [facility] Last Admin: 07/15/18 07:20 Dose: 0.25 mg Calcium Acetate (Phoslo) 1,334 mg PO TIDCC [facility] Last Admin: 07/15/18 17:15 Dose: 1,334 mg Diltiazem HCl (Cardizem Cd) 240 mg PO DAILY [facility] Last Admin: 07/15/18 09:37 Dose: 240 mg Docusate Sodium (Colace) 100 mg PO BID [facility] Last Admin: 07/15/18 17:15 Dose: 100 mg Famotidine (Pepcid) 20 mg PO DAILY [facility] Last Admin: 07/15/18 09:36 Dose: 20 mg Fluticasone/Vilanterol (Breo Ellipta 200-25 Mcg Inh) 1 puff INH RQD [facility] Last Admin: 07/15/18 07:20 Dose: 1 puff Glipizide (Glucotrol) 10 mg PO ACBD [facility] Last Admin: 07/15/18 17:25 Dose: 10 mg Home Med (Patient's Own Drops) 1 drop OD DAILY [facility] Last Admin: 07/15/18 09:40 Dose: 1 drop Micafungin Sodium 100 mg/ (Sodium Chloride) 100 mls @ 100 mls/hr IV Q24H [facility]; Protocol Last Admin: 07/15/18 17:00 Dose: 100 mls/hr Insulin Aspart (Novolog) 10 unit SC ONCE [facility] Insulin Aspart (Novolog) 0 unit SC ACHS [facility]; Protocol Last Admin: 07/15/18 17:20 Dose: 10 units Insulin Detemir (Levemir) 12 unit SC Q12H [facility] Last Admin: 07/15/18 11:50 Dose: 12 units Levothyroxine Sodium (Synthroid) 150 mcg PO DAILY@0630 [facility] Last Admin: 07/15/18 07:33 Dose: 150 mcg Polyethylene Glycol (Miralax) 17 gm PO DAILY PRN PRN Reason: Constipation Last Admin: 07/14/18 08:29 Dose: 17 gm Rosuvastatin Calcium (Crestor) 5 mg PO HS [facility] Last Admin: 07/14/18 22:37 Dose: 5 mg Tiotropium [place] (Spiriva) 18 mcg INH RQ24 [facility] Last Admin: 07/14/18 07:53 Dose: 18 mcg - Labs Labs: 07/15/18 06:31 07/15/18 09:35 - Head Exam Head Exam: NORMAL INSPECTION - Eye Exam Eye Exam: Normal appearance - ENT Exam ENT Exam: Mucous Membranes Moist - Respiratory Exam Respiratory Exam: Prolonged Expiratory Phase - Cardiovascular Exam Cardiovascular Exam: Irregular Rhythm, +S1, +S2 - GI/Abdominal Exam GI & Abdominal Exam: Soft, Normal Bowel Sounds - Extremities Exam Extremities Exam: Normal Inspection - Neurological Exam Neurological Exam: Alert, Oriented x3 Assessment and Plan (1) CHF exacerbation Status: Acute (2) Dyspnea Status: Acute (3) Atrial fibrillation with RVR Status: Resolved (4) COPD (chronic obstructive pulmonary disease) Status: Acute (5) ESRD (end stage renal disease) Status: Acute - Assessment and Plan (Free Text) Plan: Breo Ellipta Ipratromium as needed HD as per schedule Rest care as per orders DVT/GI prophalaxis
--- NOTE | 2018-07-15 18:20 | CP.PCM.PN ---
Subjective - Date & Time of Evaluation Date of Evaluation: 07/15/18 Time of Evaluation: 12:34 - Subjective Subjective: no ever tachycardic wbc bumped up family bedside no vomitting pt has decreased apatite no chest pain s/p cardiology Objective - Vital Signs/Intake and Output Vital Signs (last 24 hours): Temp Pulse Resp BP Pulse Ox 98.4 F 107 H 20 97/36 L 99 07/15/18 16:00 07/15/18 18:00 07/15/18 18:00 07/15/18 17:00 07/15/18 18:00 Intake and Output: 07/15/18 07/15/18 06:59 18:59 Intake Total 100 300 Output Total 0 Balance 100 300 - Medications Medications: Current Medications Acetaminophen (Tylenol 325mg Tab) 650 mg PO Q6 PRN PRN Reason: Fever >100.4 F Last Admin: 06/26/18 18:19 Dose: 650 mg Amiodarone HCl (Cordarone) 200 mg PO TID [facility] Last Admin: 07/15/18 17:24 Dose: 200 mg Apixaban (Eliquis) 2.5 mg PO Q48H [facility] Last Admin: 07/15/18 15:00 Dose: 2.5 mg Budesonide (Pulmicort Respules) 0.25 mg IH RBID [facility] Last Admin: 07/15/18 07:20 Dose: 0.25 mg Calcium Acetate (Phoslo) 1,334 mg PO TIDCC [facility] Last Admin: 07/15/18 17:15 Dose: 1,334 mg Diltiazem HCl (Cardizem Cd) 240 mg PO DAILY [facility] Last Admin: 07/15/18 09:37 Dose: 240 mg Docusate Sodium (Colace) 100 mg PO BID [facility] Last Admin: 07/15/18 17:15 Dose: 100 mg Famotidine (Pepcid) 20 mg PO DAILY [facility] Last Admin: 07/15/18 09:36 Dose: 20 mg Fluticasone/Vilanterol (Breo Ellipta 200-25 Mcg Inh) 1 puff INH RQD [facility] Last Admin: 07/15/18 07:20 Dose: 1 puff Glipizide (Glucotrol) 10 mg PO ACBD [facility] Last Admin: 07/15/18 17:25 Dose: 10 mg Home Med (Patient's Own Drops) 1 drop OD DAILY [facility] Last Admin: 07/15/18 09:40 Dose: 1 drop Micafungin Sodium 100 mg/ (Sodium Chloride) 100 mls @ 100 mls/hr IV Q24H [facility]; Protocol Last Admin: 07/15/18 17:00 Dose: 100 mls/hr Insulin Aspart (Novolog) 10 unit SC ONCE [facility] Insulin Aspart (Novolog) 0 unit SC ACHS [facility]; Protocol Last Admin: 07/15/18 17:20 Dose: 10 units Insulin Detemir (Levemir) 12 unit SC Q12H [facility] Last Admin: 07/15/18 11:50 Dose: 12 units Levothyroxine Sodium (Synthroid) 150 mcg PO DAILY@0630 [facility] Last Admin: 07/15/18 07:33 Dose: 150 mcg Polyethylene Glycol (Miralax) 17 gm PO DAILY PRN PRN Reason: Constipation Last Admin: 07/14/18 08:29 Dose: 17 gm Rosuvastatin Calcium (Crestor) 5 mg PO HS [facility] Last Admin: 07/14/18 22:37 Dose: 5 mg Tiotropium [place] (Spiriva) 18 mcg INH RQ24 [facility] Last Admin: 07/14/18 07:53 Dose: 18 mcg - Labs Labs: 07/15/18 06:31 07/15/18 09:35 - Constitutional Appears: Well - Head Exam Head Exam: ATRAUMATIC, NORMAL INSPECTION, NORMOCEPHALIC - Eye Exam Eye Exam: EOMI, Normal appearance, PERRL Pupil Exam: NORMAL ACCOMODATION, PERRL - ENT Exam ENT Exam: Mucous Membranes Moist, Normal Exam - Neck Exam Neck Exam: Full ROM, Normal Inspection. absent: Lymphadenopathy - Respiratory Exam Respiratory Exam: Decreased Breath Sounds - Cardiovascular Exam Cardiovascular Exam: REGULAR RHYTHM, +S1, +S2 - GI/Abdominal Exam GI & Abdominal Exam: Soft, Diminished Bowel Sounds Assessment and Plan (1) CHF exacerbation Status: Acute (2) Dyspnea Status: Acute (3) ESRD (end stage renal disease) on dialysis Status: Acute (4) Uncontrolled diabetes mellitus Status: Acute (5) MARIA [place]GEN[place] (acute kidney injury) Status: Acute (6) Abdominal pain Status: Acute (7) Acute bronchitis Status: Acute (8) Acute kidney injury Status: Acute (9) Acute kidney injury superimposed on chronic kidney disease Status: Acute (10) Acute respiratory failure Status: Acute (11) Anemia Status: Acute (12) Anemia of chronic disease Status: Acute (13) Atrial fibrillation with controlled ventricular response Status: Acute (14) Back pain of thoracolumbar region Status: Acute (15) Bronchitis Status: Acute (16) Bronchitis Status: Acute (17) CHF (congestive heart failure) Status: Acute (18) CHF (congestive heart failure) Status: Acute (19) CKD (chronic kidney disease) stage 3, GFR 30-59 ml/min Status: Acute (20) COPD (chronic obstructive pulmonary disease) Status: Acute (21) COPD exacerbation Status: Acute (22) COPD exacerbation Status: Acute (23) Chest pain Status: Acute (24) ESR raised Status: Acute (25) ESRD (end stage renal disease) Status: Acute (26) Fluid overload Status: Acute (27) Fluid overload, unspecified Status: Acute (28) Gastritis Status: Acute (29) Hepatitis Status: Acute (30) History of asthma Status: Acute (31) History of atrial fibrillation Status: Acute (32) History of back pain Status: Acute (33) History of gastroesophageal reflux (GERD) Status: Acute (34) Hypercalcemia Status: Acute (35) Hyperlipemia Status: Acute (36) Influenza Status: Acute (37) Leucocytosis Status: Acute (38) Lower extremity pain Status: Acute (39) Multiple myeloma Status: Acute (40) Multiple myeloma Status: Acute (41) Myeloma Status: Acute (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 (43) Occult gastrointestinal hemorrhage Status: Acute (44) Paroxysmal A-fib Status: Acute (45) Pneumonia Status: Acute (46) Prophylactic measure Status: Acute (47) Pulmonary hypertension Status: Acute (48) Pulmonary hypertension Status: Acute (49) Renal failure Status: Acute (50) Respiratory tract infection Status: Acute (51) Streptococcus pneumoniae Status: Acute (52) Symptomatic anemia Status: Acute (53) Vertigo Status: Acute (54) Worsening renal function Status: Acute (55) Anemia Status: Chronic (56) Asthma Status: Chronic (57) Atrial fibrillation Status: Chronic (58) Chronic diastolic (congestive) heart failure Status: Chronic (59) Diabetes Status: Chronic (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 - Assessment and Plan (Free Text) Plan: Breo Ellipta 200-25 mcg INH Cardizem CD Colace Cordarone Crestor Eliquis Glucotrol Levemir micfungin sodium 100 mg MiraLAX NovoLog Patient's own drops Pepcid PhosLo Pulmicort respules Spiriva Synthroid Tylenol 325 mg tablet On increased amiodraone; still wth VR 150s k is 6.7 s/p hd renal pulm note aprecaited also seen by heme onc for mulitle myeloma on dialysis - UF 1500ml K elevated- changed to 1 K bath labs reviewed vitals reviewed medications reviewed
[2018-07-16 06:09] LABS: BASO % 0.3 % (0.0-2.0); EOS % 0.1 % (0.0-4.0); HEMOGLOBIN 7.4 g/dL (11.0-16.0); LYMPH # 0.4 K/uL (1.0-4.3); LYMPH % 2.8 % (20.0-40.0); MEAN CELL VOLUME 87.8 fL (81.0-99.0); MEAN CORPUSCULAR HEMOGLOBIN 27.7 pg (27.0-31.0); MEAN CORPUSCULAR HGB CONC 31.6 g/dL (33.0-37.0); MEAN PLATELET VOLUME 11.6 fL (7.2-11.7); MONO # 0.4 K/uL (0.0-0.8); MONO % 2.6 % (0.0-10.0); NEUT # 13.4 K/uL (1.8-7.0); NEUT % 94.2 % (50.0-75.0); PLATELET COUNT 69 K/uL (130-400); RBC 2.67 Mil/uL (3.80-5.20); RED CELL DISTRIBUTION WIDTH 16.6 % (11.5-14.5); WHITE BLOOD COUNT 14.2 K/uL (4.8-10.8)
[2018-07-16] MEDS: Levothyroxine 150 MCG TAB PO SCH (06:16)
[2018-07-16 06:48] LABS: ALB/GLOB RATIO 0.9 (1.0-2.1); ALBUMIN 2.5 g/dL (3.5-5.0); CALCIUM 7.5 mg/dl (8.6-10.4)
--- NOTE | 2018-07-16 07:06 | CP.CCUPN ---
<Mandeep Garduno - Last Filed: 07/16/18 11:10> CCU Subjective - Physician Review Subjective (Free Text): ICU Progress Note for Dr. Kessler Pt seen and examined at bedside this am. Denies any acute complaints this am. Denies headache, dizziness, chest pain, sob, n/v/d/c, abd pain, urinary complain ts, or other symptoms. No acute events reported overnight by staff. Tachycardia improved this am. CCU Objective - Vital Signs / Intake & Output Vital Signs (Last 4 hours): Vital Signs Pulse Resp BP Pulse Ox 07/16/18 07:00 111 H 22 99 07/16/18 06:54 98 H 22 100 07/16/18 06:08 90/33 L 07/16/18 06:00 97 H 19 99 07/16/18 05:00 104 H 21 100 07/16/18 04:54 111 H 19 97/48 L 100 07/16/18 04:00 99 H 24 99 07/16/18 03:54 89 25 H 94/38 L 100 Intake and Output (Last 8hrs): Intake & Output 07/15/18 07/16/18 07/16/18 22:59 06:59 14:59 Intake Total 300 30 0 Output Total 0 0 Balance 300 30 0 Intake: Intake, IV Amount 100 0 0 Left Port-A-Cath 0 0 Right Antecubital 0 0 Rt Forearm 100 Oral 200 30 0 Output: Urine 0 0 Urine, Voided 0 0 - Physical Exam Head: Positive for: Atraumatic, Normocephalic Pupils: Positive for: PERRL Extroacular Muscles: Positive for: EOMI Conjunctiva: Positive for: Normal Neck: Positive for: Normal Range of Motion. Negative for: Meningeal Signs, JVD, Lymphadenopathy Respiratory/Chest: Positive for: Clear to Auscultation, Good Air Exchange. Negative for: Respiratory Distress, Accessory Muscle Use, Wheezes, Rales, Rhonchi Cardiovascular: Positive for: Normal S1, S2, Irregular Rhythm, Tachycardic Abdomen: Positive for: Normal Bowel Sounds. Negative for: Tenderness, Distention, Mass/Organomegaly Upper Extremity: Positive for: Normal Inspection, Normal ROM, NORMAL PULSES, Neurovascularly Intact, Capillary Refill < 2s. Negative for: Cyanosis, Edema Lower Extremity: Positive for: Normal Inspection, NORMAL PULSES, Normal ROM, Neurovascularly Intact, Capillary Refill < 2 s. Negative for: Edema, CALF TENDERNESS Neurological: Positive for: GCS=15, CN II-XII Intact, Speech Normal Skin: Positive for: Warm, Dry, Normal Color Psychiatric: Positive for: Alert, Oriented x 3 - Medications Active Medications: Active Medications Generic Name Dose Route Start Last Admin Trade Name Freq PRN Reason Stop Dose Admin Acetaminophen 650 mg 06/26/18 16:06 06/26/18 18:19 Tylenol 325mg Tab PO 650 mg Q6 PRN Administration Fever >100.4 F Amiodarone HCl 200 mg 07/14/18 18:00 07/15/18 17:24 Cordarone PO 200 mg TID MARIBETH Administration Apixaban 2.5 mg 07/05/18 14:30 07/15/18 15:00 Eliquis PO 2.5 mg Q48H MARIBETH Administration Budesonide 0.25 mg 07/07/18 20:00 07/15/18 19:24 Pulmicort Respules IH 0.25 mg RBID MARIBETH Administration Calcium Acetate 1,334 mg 07/08/18 17:00 07/15/18 17:15 Phoslo PO 1,334 mg TIDCC MARIBETH Administration Diltiazem HCl 240 mg 07/02/18 10:00 07/15/18 09:37 Cardizem Cd PO 240 mg DAILY MARIBETH Administration Docusate Sodium 100 mg 07/10/18 11:30 07/15/18 17:15 Colace PO 100 mg BID MARIBETH Administration Famotidine 20 mg 06/26/18 10:00 07/15/18 09:36 Pepcid PO 20 mg DAILY MARIBETH Administration Fluticasone/Vilanterol 1 puff 06/26/18 08:00 07/15/18 07:20 Breo Ellipta 200-25 Mcg Inh INH 1 puff RQD MARIBETH Administration Glipizide 10 mg 06/26/18 07:30 07/15/18 17:25 Glucotrol PO 10 mg ACBD MARIBETH Administration Home Med 1 drop 07/11/18 10:00 07/15/18 09:40 Patient's Own Drops OD 1 drop DAILY MARIBETH Administration Micafungin Sodium 100 mg/ 100 mls @ 100 mls/hr 07/14/18 16:00 07/15/18 17:00 Sodium Chloride IV 100 mls/hr Q24H MARIBETH Administration Protocol Insulin Aspart 10 unit 06/25/18 23:00 Novolog SC ONCE MARIBETH Insulin Aspart 0 unit 06/26/18 07:30 07/15/18 22:32 Novolog SC Not Given ACHS [facility] Protocol Insulin Detemir 12 unit 06/25/18 23:00 07/15/18 22:25 Levemir SC 12 units Q12H MARIBETH Administration Levothyroxine Sodium 150 mcg 06/26/18 06:30 07/16/18 06:16 Synthroid PO 150 mcg DAILY@0630 MARIBETH Administration Polyethylene Glycol 17 gm 07/10/18 16:30 07/14/18 08:29 Miralax PO 17 gm DAILY PRN Administration Constipation Rosuvastatin Calcium 5 mg 06/25/18 23:00 07/15/18 22:24 Crestor PO 5 mg HS MARIBETH Administration Tiotropium Jenner 18 mcg 06/26/18 08:00 07/14/18 07:53 Spiriva INH 18 mcg RQ24 MARIBETH Administration - Patient Studies Lab Studies: Microbiology Studies 07/14/18 16:50 MRSA Culture (Admit) - Final Naris MRSA DETECTED Lab Studies 07/16/18 07/16/18 07/15/18 Range/Units 06:00 05:55 21:21 WBC 14.2 H (4.8-10.8) K/uL RBC 2.67 L (3.80-5.20) Mil/uL Hgb 7.4 L (11.0-16.0) g/dL Hct 23.4 L (34.0-47.0) % MCV 87.8 (81.0-99.0) fL MCH 27.7 (27.0-31.0) pg MCHC 31.6 L (33.0-37.0) g/dL RDW 16.6 H (11.5-14.5) % Plt Count 69 L (130-400) K/uL MPV 11.6 (7.2-11.7) fL Neut % (Auto) 94.2 H (50.0-75.0) % Lymph % (Auto) 2.8 L (20.0-40.0) % Rogers % (Auto) 2.6 (0.0-10.0) % Eos % (Auto) 0.1 (0.0-4.0) % Baso % (Auto) 0.3 (0.0-2.0) % Neut # (Auto) 13.4 H (1.8-7.0) K/uL Lymph # (Auto) 0.4 L (1.0-4.3) K/uL Rogers # (Auto) 0.4 (0.0-0.8) K/uL Eos # (Auto) 0.0 (0.0-0.7) K/uL Baso # (Auto) 0.0 (0.0-0.2) K/uL Neutrophils % (Manual) (50-75) % Lymphocytes % (Manual) (20-40) % Monocytes % (Manual) (0-10) % Platelet Estimate (NORMAL) Polychromasia Hypochromasia (manual) Anisocytosis (manual) Target Cells Sodium 130 L (132-148) mmol/L Potassium 4.4 (3.6-5.2) mmol/L Chloride 94 L (98-107) mmol/L Carbon Dioxide 31 H (22-30) mmol/L Anion Gap 10 (10-20) BUN 49 H (7-17) mg/dL Creatinine 2.9 H (0.7-1.2) mg/dL Est GFR ( Amer) 19 Est GFR (Non-Af Amer) 16 POC Glucose (mg/dL) 205 H (65-110) mg/dL Random Glucose 129 H (65-105) mg/dL Calcium 7.5 L (8.6-10.4) mg/dl Phosphorus 2.3 L (2.5-4.5) mg/dL Magnesium 2.1 (1.6-2.3) mg/dL Total Bilirubin 0.5 (0.2-1.3) mg/dL AST 28 (14-36) U/L ALT 35 (9-52) U/L Alkaline Phosphatase 156 H (38-126) U/L Total Protein 5.2 L (6.3-8.3) g/dL Albumin 2.5 L (3.5-5.0) g/dL Globulin 2.7 (2.2-3.9) gm/dL Albumin/Globulin Ratio 0.9 L (1.0-2.1) 07/15/18 07/15/18 07/15/18 Range/Units 16:08 11:33 09:35 WBC (4.8-10.8) K/uL RBC (3.80-5.20) Mil/uL Hgb (11.0-16.0) g/dL Hct (34.0-47.0) % MCV (81.0-99.0) fL MCH (27.0-31.0) pg MCHC (33.0-37.0) g/dL RDW (11.5-14.5) % Plt Count (130-400) K/uL MPV (7.2-11.7) fL Neut % (Auto) (50.0-75.0) % Lymph % (Auto) (20.0-40.0) % Rogers % (Auto) (0.0-10.0) % Eos % (Auto) (0.0-4.0) % Baso % (Auto) (0.0-2.0) % Neut # (Auto) (1.8-7.0) K/uL Lymph # (Auto) (1.0-4.3) K/uL Rogers # (Auto) (0.0-0.8) K/uL Eos # (Auto) (0.0-0.7) K/uL Baso # (Auto) (0.0-0.2) K/uL Neutrophils % (Manual) (50-75) % Lymphocytes % (Manual) (20-40) % Monocytes % (Manual) (0-10) % Platelet Estimate (NORMAL) Polychromasia Hypochromasia (manual) Anisocytosis (manual) Target Cells Sodium 127 L (132-148) mmol/L Potassium 6.7 H* D (3.6-5.2) mmol/L Chloride 88 L (98-107) mmol/L Carbon Dioxide 28 (22-30) mmol/L Anion Gap 18 (10-20) BUN 83 H (7-17) mg/dL Creatinine 5.1 H (0.7-1.2) mg/dL Est GFR ( Amer) 10 Est GFR (Non-Af Amer) 8 POC Glucose (mg/dL) 394 H 154 H (65-110) mg/dL Random Glucose 114 H D (65-105) mg/dL Calcium 8.4 L (8.6-10.4) mg/dl Phosphorus 4.0 (2.5-4.5) mg/dL Magnesium 2.1 (1.6-2.3) mg/dL Total Bilirubin 0.5 (0.2-1.3) mg/dL AST 38 H D (14-36) U/L ALT 44 (9-52) U/L Alkaline Phosphatase 178 H (38-126) U/L Total Protein 5.7 L (6.3-8.3) g/dL Albumin 2.7 L (3.5-5.0) g/dL Globulin 2.9 (2.2-3.9) gm/dL Albumin/Globulin Ratio 0.9 L (1.0-2.1) 07/15/18 07/15/18 Range/Units 07:15 06:31 WBC (4.8-10.8) K/uL RBC (3.80-5.20) Mil/uL Hgb (11.0-16.0) g/dL Hct (34.0-47.0) % MCV (81.0-99.0) fL MCH (27.0-31.0) pg MCHC (33.0-37.0) g/dL RDW (11.5-14.5) % Plt Count (130-400) K/uL MPV (7.2-11.7) fL Neut % (Auto) (50.0-75.0) % Lymph % (Auto) (20.0-40.0) % Rogers % (Auto) (0.0-10.0) % Eos % (Auto) (0.0-4.0) % Baso % (Auto) (0.0-2.0) % Neut # (Auto) (1.8-7.0) K/uL Lymph # (Auto) (1.0-4.3) K/uL Rogers # (Auto) (0.0-0.8) K/uL Eos # (Auto) (0.0-0.7) K/uL Baso # (Auto) (0.0-0.2) K/uL Neutrophils % (Manual) 96 H (50-75) % Lymphocytes % (Manual) 2 L (20-40) % Monocytes % (Manual) 2 (0-10) % Platelet Estimate Decreased L (NORMAL) Polychromasia Slight Hypochromasia (manual) Slight Anisocytosis (manual) Slight Target Cells Slight Sodium (132-148) mmol/L Potassium (3.6-5.2) mmol/L Chloride (98-107) mmol/L Carbon Dioxide (22-30) mmol/L Anion Gap (10-20) BUN (7-17) mg/dL Creatinine (0.7-1.2) mg/dL Est GFR ( Amer) Est GFR (Non-Af Amer) POC Glucose (mg/dL) 91 (65-110) mg/dL Random Glucose (65-105) mg/dL Calcium (8.6-10.4) mg/dl Phosphorus (2.5-4.5) mg/dL Magnesium (1.6-2.3) mg/dL Total Bilirubin (0.2-1.3) mg/dL AST (14-36) U/L ALT (9-52) U/L Alkaline Phosphatase (38-126) U/L Total Protein (6.3-8.3) g/dL Albumin (3.5-5.0) g/dL Globulin (2.2-3.9) gm/dL Albumin/Globulin Ratio (1.0-2.1) Laboratory Results - last 24 hr 07/15/18 07/15/18 07/15/18 06:31 07:15 09:35 WBC RBC Hgb Hct MCV MCH MCHC RDW Plt Count MPV Neut % (Auto) Lymph % (Auto) Rogers % (Auto) Eos % (Auto) Baso % (Auto) Neut # (Auto) Lymph # (Auto) Rogers # (Auto) Eos # (Auto) Baso # (Auto) Neutrophils % (Manual) 96 H Lymphocytes % (Manual) 2 L Monocytes % (Manual) 2 Platelet Estimate Decreased L Polychromasia Slight Hypochromasia (manual) Slight Anisocytosis (manual) Slight Target Cells Slight Sodium 127 L Potassium 6.7 H* D Chloride 88 L Carbon Dioxide 28 Anion Gap 18 BUN 83 H Creatinine 5.1 H Est GFR ( Amer) 10 Est GFR (Non-Af Amer) 8 POC Glucose (mg/dL) 91 Random Glucose 114 H D Calcium 8.4 L Phosphorus 4.0 Magnesium 2.1 Total Bilirubin 0.5 AST 38 H D ALT 44 Alkaline Phosphatase 178 H Total Protein 5.7 L Albumin 2.7 L Globulin 2.9 Albumin/Globulin Ratio 0.9 L 07/15/18 07/15/18 07/15/18 11:33 16:08 21:21 WBC RBC Hgb Hct MCV MCH MCHC RDW Plt Count MPV Neut % (Auto) Lymph % (Auto) Rogers % (Auto) Eos % (Auto) Baso % (Auto) Neut # (Auto) Lymph # (Auto) Rogers # (Auto) Eos # (Auto) Baso # (Auto) Neutrophils % (Manual) Lymphocytes % (Manual) Monocytes % (Manual) Platelet Estimate Polychromasia Hypochromasia (manual) Anisocytosis (manual) Target Cells Sodium Potassium Chloride Carbon Dioxide Anion Gap BUN Creatinine Est GFR ( Amer) Est GFR (Non-Af Amer) POC Glucose (mg/dL) 154 H 394 H 205 H Random Glucose Calcium Phosphorus Magnesium Total Bilirubin AST ALT Alkaline Phosphatase Total Protein Albumin Globulin Albumin/Globulin Ratio 07/16/18 07/16/18 05:55 06:00 WBC 14.2 H RBC 2.67 L Hgb 7.4 L Hct 23.4 L MCV 87.8 MCH 27.7 MCHC 31.6 L RDW 16.6 H Plt Count 69 L MPV 11.6 Neut % (Auto) 94.2 H Lymph % (Auto) 2.8 L Rogers % (Auto) 2.6 Eos % (Auto) 0.1 Baso % (Auto) 0.3 Neut # (Auto) 13.4 H Lymph # (Auto) 0.4 L Rogers # (Auto) 0.4 Eos # (Auto) 0.0 Baso # (Auto) 0.0 Neutrophils % (Manual) Lymphocytes % (Manual) Monocytes % (Manual) Platelet Estimate Polychromasia Hypochromasia (manual) Anisocytosis (manual) Target Cells Sodium 130 L Potassium 4.4 Chloride 94 L Carbon Dioxide 31 H Anion Gap 10 BUN 49 H Creatinine 2.9 H Est GFR ( Amer) 19 Est GFR (Non-Af Amer) 16 POC Glucose (mg/dL) Random Glucose 129 H Calcium 7.5 L Phosphorus 2.3 L Magnesium 2.1 Total Bilirubin 0.5 AST 28 ALT 35 Alkaline Phosphatase 156 H Total Protein 5.2 L Albumin 2.5 L Globulin 2.7 Albumin/Globulin Ratio 0.9 L Radiology Impressions: Radiology Impressions Chest X-Ray 07/15/18 09:28 Impression: Left chest wall port with tip extending into the right atrium. Moderate venous congestion. Patchy increased markings in the right hilar region and left lung base. Small left pleural effusion. Dense calcification projecting over the heart. Enlarged ectatic aorta with atherosclerotic calcification and plaque. Cardiomegaly. Fingerstick Blood Sugar Results: 205 Review of Systems - Constitutional Constitutional: absent: Fever, Chills - Cardiovascular Cardiovascular: absent: Chest Pain, Diaphoresis, Edema, Pain Radiating to Arm/Neck/Jaw, Lightheadedness, Palpitations, Syncope - Respiratory Respiratory: absent: Cough, Dyspnea, Wheezing - Gastrointestinal Gastrointestinal: absent: Abdominal Pain, Constipation, Diarrhea, Nausea, Vomiting - Genitourinary Genitourinary: absent: Difficulty Urinating, Dysuria Critical Care Progress Note - Nutrition Nutrition: Nutrition Category Date Time Status Renal Diet [DIET] Diets 06/26/18 Breakfast Active Assessment/Plan - Assessment and Plan (Free Text) Assessment: 83 y o female with PMhx HTN, hypothyroidism, A-fib, DM, anemia, multiple myeloma, CHF, and COPD who presented on this current admission with hyperglycemia and was admitted to medical floor for further management. S/p ENTRY OPERATOR on 06/26/18 for tachycardia s/p HD, which required admission to ICU for A-fib with RVR. S/p ENTRY OPERATOR for tachycardia during HD on 07/09/18, rhythm strip demonstrated A-fib with RVR. Started on amiodarone po last ICU admission. On 07/14/18 was readmitted to ICU for recurrent SVT while on PO amiodarone, was given adenosine which converted rhythm to A-flutter. Currently off amiodarone drip. S/p digoxin x2 yesterday due to elevated HR during HD treatment. Tachycardia improved this am. Pt for possible cardiac ablation as per Dr. Gold. Plan: Neuro: -AAOx3, no gross deficits on exam, will cont to monitor Cardio: -Afib with RVR broke with adenosine, brought to ICU for amiodarone bolusing, but not needed as patient converted to sinus upon arriving. Continuing amiodarone po, will need secondary drug to prevent further episodes of recurrent SVT. Co ntinue Eliquis 2.5 mg renally dosed. -C/w Amiodarone PO tid, Cardizem daily -S/p digoxin x2 with improvement in HR yesterday during HD -Possible cardiac ablation as per Dr. Gold Pulm: -Hx COPD -C/w Pulmicort, Spiriva, Fluticasone GI: -Renal diet -Pepcid Renal: -Hx ESRD on HD MWF -Nephro - Dr. Bill -EPO [facility] Heme: -C/w EPO -Pt to be transfused 1 U PRBC tomorrow during HD for low Hgb this am ID: -Leukocytosis trending up -Afebrile -S/p Azithromycin and Cefepime for tx of PNA -Micafungin added by ID -Positive sputum cx for yeast on 07/10 -Flu swab neg -ID consulted (Dr. Luong), recs appreciated Endo: -Hx hypothyroidism; continue Synthroid 150 mcg daily -Hx DM; Insulin aspart 20 U sc acb, Levemir 12 U sc q12h, Glipizide 10 mg PO acbd, SISS for coverage PPX: -GI proph - Pepcid, -DVT proph - SCD, Eliquis renally dosed Pt seen, examined with, and plan discussed with Dr. Kessler, attending physician. Mandeep Garduno DO PGY-1, Hand Sample Maker Pager #[phone] <Pepe Kessler S - Last Filed: 07/16/18 17:11> CCU Subjective - Physician Review Critical Care Time Spent (in minutes): 40 CCU Objective - Vital Signs / Intake & Output Vital Signs (Last 4 hours): Vital Signs Pulse Resp BP Pulse Ox 07/16/18 15:09 76 25 H 100/34 L 100 07/16/18 15:00 75 22 98 07/16/18 14:00 80 25 H 98 Intake and Output (Last 8hrs): Intake & Output 07/16/18 07/16/18 07/16/18 06:59 14:59 22:59 Intake Total 30 240 100 Output Total 0 Balance 30 240 100 Intake: Intake, IV Amount 0 0 100 Left Port-A-Cath 0 0 100 Right Antecubital 0 Oral 30 240 Output: Urine 0 Urine, Voided 0 - Medications Active Medications: Active Medications Generic Name Dose Route Start Last Admin Trade Name Freq PRN Reason Stop Dose Admin Acetaminophen 650 mg 06/26/18 16:06 06/26/18 18:19 Tylenol 325mg Tab PO 650 mg Q6 PRN Administration Fever >100.4 F Amiodarone HCl 200 mg 07/14/18 18:00 07/16/18 15:15 Cordarone PO 200 mg TID MARIBETH Administration Apixaban 2.5 mg 07/05/18 14:30 07/15/18 15:00 Eliquis PO 2.5 mg Q48H MARIBETH Administration Budesonide 0.25 mg 07/07/18 20:00 07/16/18 07:20 Pulmicort Respules IH 0.25 mg RBID MARIBETH Administration Calcium Acetate 1,334 mg 07/08/18 17:00 07/16/18 12:39 Phoslo PO 1,334 mg TIDCC MARIBETH Administration Diltiazem HCl 240 mg 07/02/18 10:00 07/16/18 09:27 Cardizem Cd PO 240 mg DAILY MARIBETH Administration Docusate Sodium 100 mg 07/10/18 11:30 07/16/18 09:24 Colace PO 100 mg BID MARIBETH Administration Famotidine 20 mg 06/26/18 10:00 07/16/18 09:24 Pepcid PO 20 mg DAILY MARIBETH Administration Fluticasone/Vilanterol 1 puff 06/26/18 08:00 07/16/18 07:20 Breo Ellipta 200-25 Mcg Inh INH 1 puff RQD MARIBETH Administration Glipizide 10 mg 06/26/18 07:30 07/16/18 09:16 Glucotrol PO Not Given ACBD [facility] Home Med 1 drop 07/11/18 10:00 07/16/18 09:24 Patient's Own Drops OD 1 drop DAILY MARIBETH Administration Micafungin Sodium 100 mg/ 100 mls @ 100 mls/hr 07/14/18 16:00 07/16/18 15:17 Sodium Chloride IV 100 mls/hr Q24H MARIBETH Administration Protocol Insulin Aspart 10 unit 06/25/18 23:00 Novolog SC ONCE MARIBETH Insulin Aspart 0 unit 06/26/18 07:30 07/16/18 12:40 Novolog SC 4 units ACHS MARIBETH Administration Protocol Insulin Detemir 12 unit 06/25/18 23:00 07/16/18 12:39 Levemir SC 12 units Q12H MARIBETH Administration Levothyroxine Sodium 150 mcg 06/26/18 06:30 04/02/19 06:16 Synthroid PO 150 mcg DAILY@0630 MARIBETH Administration Polyethylene Glycol 17 gm 07/10/18 16:30 07/14/18 08:29 Miralax PO 17 gm DAILY PRN Administration Constipation Rosuvastatin Calcium 5 mg 06/25/18 23:00 07/15/18 22:24 Crestor PO 5 mg HS MARIBETH Administration Tiotropium Jenner 18 mcg 06/26/18 08:00 07/16/18 07:20 Spiriva INH 18 mcg RQ24 MARIBETH Administration - Patient Studies Lab Studies: Microbiology Studies 07/15/18 16:00 Blood Culture - Preliminary Blood-Venous NO GROWTH AFTER 24 HOURS 07/15/18 15:30 Blood Culture - Preliminary Blood-Venous NO GROWTH AFTER 24 HOURS 07/14/18 16:50 MRSA Culture (Admit) - Final Naris MRSA DETECTED Lab Studies 07/16/18 07/16/18 07/16/18 Range/Units 08:45 06:00 05:55 WBC 15.4 H 14.2 H (4.8-10.8) K/uL RBC 2.88 L 2.67 L (3.80-5.20) Mil/uL Hgb 7.9 L 7.4 L (11.0-16.0) g/dL Hct 25.1 L 23.4 L (34.0-47.0) % MCV 87.4 87.8 (81.0-99.0) fL MCH 27.3 27.7 (27.0-31.0) pg MCHC 31.2 L 31.6 L (33.0-37.0) g/dL RDW 16.5 H 16.6 H (11.5-14.5) % Plt Count 79 L 69 L (130-400) K/uL MPV 11.1 11.6 (7.2-11.7) fL Neut % (Auto) 94.2 H (50.0-75.0) % Lymph % (Auto) 2.8 L (20.0-40.0) % Rogers % (Auto) 2.6 (0.0-10.0) % Eos % (Auto) 0.1 (0.0-4.0) % Baso % (Auto) 0.3 (0.0-2.0) % Neut # (Auto) 13.4 H (1.8-7.0) K/uL Lymph # (Auto) 0.4 L (1.0-4.3) K/uL Rogers # (Auto) 0.4 (0.0-0.8) K/uL Eos # (Auto) 0.0 (0.0-0.7) K/uL Baso # (Auto) 0.0 (0.0-0.2) K/uL Neutrophils % (Manual) 97 H (50-75) % Lymphocytes % (Manual) 2 L (20-40) % Monocytes % (Manual) 1 (0-10) % Platelet Estimate Decreased L (NORMAL) Polychromasia Slight Hypochromasia (manual) Slight Anisocytosis (manual) Slight Ovalocytes Slight Sodium 130 L (132-148) mmol/L Potassium 4.4 (3.6-5.2) mmol/L Chloride 94 L (98-107) mmol/L Carbon Dioxide 31 H (22-30) mmol/L Anion Gap 10 (10-20) BUN 49 H (7-17) mg/dL Creatinine 2.9 H (0.7-1.2) mg/dL Est GFR ( Amer) 19 Est GFR (Non-Af Amer) 16 POC Glucose (mg/dL) (65-110) mg/dL Random Glucose 129 H (65-105) mg/dL Calcium 7.5 L (8.6-10.4) mg/dl Phosphorus 2.3 L (2.5-4.5) mg/dL Magnesium 2.1 (1.6-2.3) mg/dL Total Bilirubin 0.5 (0.2-1.3) mg/dL AST 28 (14-36) U/L ALT 35 (9-52) U/L Alkaline Phosphatase 156 H (38-126) U/L Total Protein 5.2 L (6.3-8.3) g/dL Albumin 2.5 L (3.5-5.0) g/dL Globulin 2.7 (2.2-3.9) gm/dL Albumin/Globulin Ratio 0.9 L (1.0-2.1) 07/15/18 Range/Units 21:21 WBC (4.8-10.8) K/uL RBC (3.80-5.20) Mil/uL Hgb (11.0-16.0) g/dL Hct (34.0-47.0) % MCV (81.0-99.0) fL MCH (27.0-31.0) pg MCHC (33.0-37.0) g/dL RDW (11.5-14.5) % Plt Count (130-400) K/uL MPV (7.2-11.7) fL Neut % (Auto) (50.0-75.0) % Lymph % (Auto) (20.0-40.0) % Rogers % (Auto) (0.0-10.0) % Eos % (Auto) (0.0-4.0) % Baso % (Auto) (0.0-2.0) % Neut # (Auto) (1.8-7.0) K/uL Lymph # (Auto) (1.0-4.3) K/uL Rogers # (Auto) (0.0-0.8) K/uL Eos # (Auto) (0.0-0.7) K/uL Baso # (Auto) (0.0-0.2) K/uL Neutrophils % (Manual) (50-75) % Lymphocytes % (Manual) (20-40) % Monocytes % (Manual) (0-10) % Platelet Estimate (NORMAL) Polychromasia Hypochromasia (manual) Anisocytosis (manual) Ovalocytes Sodium (132-148) mmol/L Potassium (3.6-5.2) mmol/L Chloride (98-107) mmol/L Carbon Dioxide (22-30) mmol/L Anion Gap (10-20) BUN (7-17) mg/dL Creatinine (0.7-1.2) mg/dL Est GFR ( Amer) Est GFR (Non-Af Amer) POC Glucose (mg/dL) 205 H (65-110) mg/dL Random Glucose (65-105) mg/dL Calcium (8.6-10.4) mg/dl Phosphorus (2.5-4.5) mg/dL Magnesium (1.6-2.3) mg/dL Total Bilirubin (0.2-1.3) mg/dL AST (14-36) U/L ALT (9-52) U/L Alkaline Phosphatase (38-126) U/L Total Protein (6.3-8.3) g/dL Albumin (3.5-5.0) g/dL Globulin (2.2-3.9) gm/dL Albumin/Globulin Ratio (1.0-2.1) Laboratory Results - last 24 hr 07/15/18 07/16/18 07/16/18 21:21 05:55 06:00 WBC 14.2 H RBC 2.67 L Hgb 7.4 L Hct 23.4 L MCV 87.8 MCH 27.7 MCHC 31.6 L RDW 16.6 H Plt Count 69 L MPV 11.6 Neut % (Auto) 94.2 H Lymph % (Auto) 2.8 L Rogers % (Auto) 2.6 Eos % (Auto) 0.1 Baso % (Auto) 0.3 Neut # (Auto) 13.4 H Lymph # (Auto) 0.4 L Rogers # (Auto) 0.4 Eos # (Auto) 0.0 Baso # (Auto) 0.0 Neutrophils % (Manual) 97 H Lymphocytes % (Manual) 2 L Monocytes % (Manual) 1 Platelet Estimate Decreased L Polychromasia Slight Hypochromasia (manual) Slight Anisocytosis (manual) Slight Ovalocytes Slight Sodium 130 L Potassium 4.4 Chloride 94 L Carbon Dioxide 31 H Anion Gap 10 BUN 49 H Creatinine 2.9 H Est GFR ( Amer) 19 Est GFR (Non-Af Amer) 16 POC Glucose (mg/dL) 205 H Random Glucose 129 H Calcium 7.5 L Phosphorus 2.3 L Magnesium 2.1 Total Bilirubin 0.5 AST 28 ALT 35 Alkaline Phosphatase 156 H Total Protein 5.2 L Albumin 2.5 L Globulin 2.7 Albumin/Globulin Ratio 0.9 L 07/16/18 08:45 WBC 15.4 H RBC 2.88 L Hgb 7.9 L Hct 25.1 L MCV 87.4 MCH 27.3 MCHC 31.2 L RDW 16.5 H Plt Count 79 L MPV 11.1 Neut % (Auto) Lymph % (Auto) Rogers % (Auto) Eos % (Auto) Baso % (Auto) Neut # (Auto) Lymph # (Auto) Rogers # (Auto) Eos # (Auto) Baso # (Auto) Neutrophils % (Manual) Lymphocytes % (Manual) Monocytes % (Manual) Platelet Estimate Polychromasia Hypochromasia (manual) Anisocytosis (manual) Ovalocytes Sodium Potassium Chloride Carbon Dioxide Anion Gap BUN Creatinine Est GFR ( Amer) Est GFR (Non-Af Amer) POC Glucose (mg/dL) Random Glucose Calcium Phosphorus Magnesium Total Bilirubin AST ALT Alkaline Phosphatase Total Protein Albumin Globulin Albumin/Globulin Ratio Critical Care Progress Note - Nutrition Nutrition: Nutrition Category Date Time Status Renal Diet [DIET] Diets 06/26/18 Breakfast Active Attending/Attestation - Attestation I have personally seen and examined this patient.: Yes I have fully participated in the care of the patient.: Yes I have reviewed all pertinent clinical information: Yes Notes (Text): 07/16/18 17:10 Patient seen and examined in the intensive care unit. Case discussed with housestaff in the morning rounds. Continue amiodarone and Cardizem Possible transfer to [facility] for EPS Continue hemodialysis transfuse as necessary
[2018-07-16] MEDS: Tiotropium 18 mcg Cap For Inhalation INH SCH (07:20)
[2018-07-16] MEDS: Fluticasone-Vilanterol 200/25mcg Diskus INH SCH (07:20)
[2018-07-16] MEDS: Budesonide 0.25 mg/2 ml Inhal Susp UD IH SCH ×2 (07:20→19:34)
[2018-07-16 08:29] LABS: ANISOCYTOSIS SLIGHT; LYMPHOCYTE 2 % (20-40); MONOCYTE 1 % (0-10); NEUTROPHIL 97 % (50-75); PLATELET ESTIMATE DECREASED (NORMAL); TOTAL CELLS COUNTED 100
[2018-07-16 08:30] LABS: HYPOCHROMIC SLIGHT; POLYCHROMIC SLIGHT
[2018-07-16 08:31] LABS: OVALOCYTES SLIGHT
--- NOTE | 2018-07-16 08:31 | CP.PCM.PN ---
Subjective - Date & Time of Evaluation Date of Evaluation: 07/16/18 Time of Evaluation: 08:30 - Subjective Subjective: dialysis last PM k normal hb down to 7.4 afebrile pulse around 100 comfortable dialysis last PM removed about 700cc ROS sob no chest pain nausau vomiting food no melena or rectal bleeding according to nurse leg weakness Objective - Vital Signs/Intake and Output Vital Signs (last 24 hours): Temp Pulse Resp BP Pulse Ox 98.1 F 109 H 18 111/23 L 100 07/16/18 08:00 07/16/18 08:00 07/16/18 08:00 07/16/18 07:12 07/16/18 08:00 Intake and Output: 07/16/18 07/16/18 06:59 18:59 Intake Total 180 0 Output Total 0 Balance 180 0 - Medications Medications: Current Medications Acetaminophen (Tylenol 325mg Tab) 650 mg PO Q6 PRN PRN Reason: Fever >100.4 F Last Admin: 06/26/18 18:19 Dose: 650 mg Amiodarone HCl (Cordarone) 200 mg PO TID [facility] Last Admin: 07/15/18 17:24 Dose: 200 mg Apixaban (Eliquis) 2.5 mg PO Q48H [facility] Last Admin: 07/15/18 15:00 Dose: 2.5 mg Budesonide (Pulmicort Respules) 0.25 mg IH RBID [facility] Last Admin: 07/15/18 19:24 Dose: 0.25 mg Calcium Acetate (Phoslo) 1,334 mg PO TIDCC [facility] Last Admin: 07/15/18 17:15 Dose: 1,334 mg Diltiazem HCl (Cardizem Cd) 240 mg PO DAILY [facility] Last Admin: 07/15/18 09:37 Dose: 240 mg Docusate Sodium (Colace) 100 mg PO BID [facility] Last Admin: 07/15/18 17:15 Dose: 100 mg Famotidine (Pepcid) 20 mg PO DAILY [facility] Last Admin: 07/15/18 09:36 Dose: 20 mg Fluticasone/Vilanterol (Breo Ellipta 200-25 Mcg Inh) 1 puff INH RQD [facility] Last Admin: 07/15/18 07:20 Dose: 1 puff Glipizide (Glucotrol) 10 mg PO ACBD [facility] Last Admin: 07/15/18 17:25 Dose: 10 mg Home Med (Patient's Own Drops) 1 drop OD DAILY [facility] Last Admin: 07/15/18 09:40 Dose: 1 drop Micafungin Sodium 100 mg/ (Sodium Chloride) 100 mls @ 100 mls/hr IV Q24H [facility]; Protocol Last Admin: 07/15/18 17:00 Dose: 100 mls/hr Insulin Aspart (Novolog) 10 unit SC ONCE [facility] Insulin Aspart (Novolog) 0 unit SC ACHS [facility]; Protocol Last Admin: 07/15/18 22:32 Dose: Not Given Insulin Detemir (Levemir) 12 unit SC Q12H [facility] Last Admin: 07/15/18 22:25 Dose: 12 units Levothyroxine Sodium (Synthroid) 150 mcg PO DAILY@0630 [facility] Last Admin: 07/16/18 06:16 Dose: 150 mcg Polyethylene Glycol (Miralax) 17 gm PO DAILY PRN PRN Reason: Constipation Last Admin: 07/14/18 08:29 Dose: 17 gm Rosuvastatin Calcium (Crestor) 5 mg PO HS [facility] Last Admin: 07/15/18 22:24 Dose: 5 mg Tiotropium [place] (Spiriva) 18 mcg INH RQ24 [facility] Last Admin: 07/14/18 07:53 Dose: 18 mcg - Labs Labs: 07/16/18 06:00 07/16/18 05:55 - Constitutional Appears: No Acute Distress - ENT Exam ENT Exam: Mucous Membranes Moist - Respiratory Exam Respiratory Exam: Clear to Ausculation Bilateral - Cardiovascular Exam Cardiovascular Exam: Irregular Rhythm - GI/Abdominal Exam GI & Abdominal Exam: Soft. absent: Distended, Tenderness - Extremities Exam Extremities Exam: absent: Calf Tenderness, Pedal Edema - Neurological Exam Neurological Exam: Awake - Psychiatric Exam Psychiatric exam: Anxious - Skin Skin Exam: Dry, Warm Assessment and Plan (1) ESRD (end stage renal disease) on dialysis Status: Acute (2) Paroxysmal atrial fibrillation Status: Acute (3) COPD (chronic obstructive pulmonary disease) Status: Acute - Assessment and Plan (Free Text) Plan: repeat hb next dialysis 4/3 follow cardiology recommendations case discussed with ICU team
[2018-07-16 08:52] LABS: HEMOGLOBIN 7.9 g/dL (11.0-16.0); MEAN CELL VOLUME 87.4 fL (81.0-99.0); MEAN CORPUSCULAR HEMOGLOBIN 27.3 pg (27.0-31.0); MEAN CORPUSCULAR HGB CONC 31.2 g/dL (33.0-37.0); MEAN PLATELET VOLUME 11.1 fL (7.2-11.7); RBC 2.88 Mil/uL (3.80-5.20); RED CELL DISTRIBUTION WIDTH 16.5 % (11.5-14.5); WHITE BLOOD COUNT 15.4 K/uL (4.8-10.8)
--- NOTE | 2018-07-16 08:53 | CP.PCM.PN ---
Subjective - Date & Time of Evaluation Date of Evaluation: 07/16/18 Time of Evaluation: 08:49 - Subjective Subjective: Th pt feels ok. HE is about 110 bpm. CXR is clear pt has anemia, may need repeat transfusion. Objective - Vital Signs/Intake and Output Vital Signs (last 24 hours): Temp Pulse Resp BP Pulse Ox 98.1 F 109 H 18 111/23 L 100 07/16/18 08:00 07/16/18 08:00 07/16/18 08:00 07/16/18 07:12 07/16/18 08:00 Intake and Output: 07/16/18 07/16/18 06:59 18:59 Intake Total 180 0 Output Total 0 Balance 180 0 - Medications Medications: Current Medications Acetaminophen (Tylenol 325mg Tab) 650 mg PO Q6 PRN PRN Reason: Fever >100.4 F Last Admin: 06/26/18 18:19 Dose: 650 mg Amiodarone HCl (Cordarone) 200 mg PO TID [facility] Last Admin: 07/15/18 17:24 Dose: 200 mg Apixaban (Eliquis) 2.5 mg PO Q48H [facility] Last Admin: 07/15/18 15:00 Dose: 2.5 mg Budesonide (Pulmicort Respules) 0.25 mg IH RBID [facility] Last Admin: 07/15/18 19:24 Dose: 0.25 mg Calcium Acetate (Phoslo) 1,334 mg PO TIDCC [facility] Last Admin: 07/15/18 17:15 Dose: 1,334 mg Diltiazem HCl (Cardizem Cd) 240 mg PO DAILY [facility] Last Admin: 07/15/18 09:37 Dose: 240 mg Docusate Sodium (Colace) 100 mg PO BID [facility] Last Admin: 07/15/18 17:15 Dose: 100 mg Famotidine (Pepcid) 20 mg PO DAILY [facility] Last Admin: 07/15/18 09:36 Dose: 20 mg Fluticasone/Vilanterol (Breo Ellipta 200-25 Mcg Inh) 1 puff INH RQD [facility] Last Admin: 07/15/18 07:20 Dose: 1 puff Glipizide (Glucotrol) 10 mg PO ACBD [facility] Last Admin: 07/15/18 17:25 Dose: 10 mg Home Med (Patient's Own Drops) 1 drop OD DAILY [facility] Last Admin: 07/15/18 09:40 Dose: 1 drop Micafungin Sodium 100 mg/ (Sodium Chloride) 100 mls @ 100 mls/hr IV Q24H [facility]; Protocol Last Admin: 07/15/18 17:00 Dose: 100 mls/hr Insulin Aspart (Novolog) 10 unit SC ONCE [facility] Insulin Aspart (Novolog) 0 unit SC ACHS [facility]; Protocol Last Admin: 07/15/18 22:32 Dose: Not Given Insulin Detemir (Levemir) 12 unit SC Q12H [facility] Last Admin: 07/15/18 22:25 Dose: 12 units Levothyroxine Sodium (Synthroid) 150 mcg PO DAILY@0630 [facility] Last Admin: 07/16/18 06:16 Dose: 150 mcg Polyethylene Glycol (Miralax) 17 gm PO DAILY PRN PRN Reason: Constipation Last Admin: 07/14/18 08:29 Dose: 17 gm Rosuvastatin Calcium (Crestor) 5 mg PO HS [facility] Last Admin: 07/15/18 22:24 Dose: 5 mg Tiotropium [place] (Spiriva) 18 mcg INH RQ24 [facility] Last Admin: 07/14/18 07:53 Dose: 18 mcg - Labs Labs: 07/16/18 06:00 07/16/18 05:55 - Constitutional Appears: Chronically Ill - Head Exam Head Exam: ATRAUMATIC - Eye Exam Eye Exam: EOMI - ENT Exam ENT Exam: Mucous Membranes Moist - Neck Exam Neck Exam: Full ROM - Respiratory Exam Respiratory Exam: Decreased Breath Sounds - GI/Abdominal Exam GI & Abdominal Exam: Normal Bowel Sounds - Extremities Exam Extremities Exam: Normal Inspection - Back Exam Back Exam: NORMAL INSPECTION - Neurological Exam Neurological Exam: Alert, Awake, Oriented x3 - Psychiatric Exam Psychiatric exam: Normal Affect, Normal Mood - Skin Skin Exam: Normal Color Assessment and Plan - Assessment and Plan (Free Text) Assessment: Atrial flutter has been difficult to manage. accorign to EP , no other meds are advised. Heart rate is slower with increased amio, but not controlled. pt could be candidate for ablation at this point as no other options. pt will have to anticoagulated for procedure. Plan correct anemia, and consider ablation when HGb stabilizes, will need to talk to family (nephew).
[2018-07-16] MEDS: (Novolog) Insulin Aspart, Recombinant 100 u/ml 10 ml vial SC SCH ×4 (09:24→21:11)
[2018-07-16] MEDS: BROMFENAC 0.07% OD SCH (09:24)
[2018-07-16] MEDS: diltiaZEM 240 mg/24 Hours CD Cap PO SCH (09:27)
[2018-07-16] MEDS: Insulin Detemir 100 units/ml Vial (Levemir) SC SCH ×2 (12:39→22:43)
[2018-07-16] MEDS: Micafungin 100 MG in Sodium Chloride 0.9% 100 ML IV SCH (15:17)
--- NOTE | 2018-07-16 18:40 | CP.PCM.PN ---
Subjective - Date & Time of Evaluation Date of Evaluation: 07/16/18 Time of Evaluation: 17:00 - Subjective Subjective: Potassium is normal hemoglobin went down to 7.4 patient is still tachycardic status post dialysis last night removed 700 mL of IV fluid status post seen by cardiology patient's May need repeat transfusion on next hemodialysis Will monitor the hemoglobin WBC has gone down to 14.[address] He for possible transfer the patient's to a monitored view Discussed with the staff Patient is still in the ICU Follow-up with the cardiology Follow-up with the pulmonary Follow-up with the hemo- Follow-up with renal Hemodialysis as scheduled Objective - Vital Signs/Intake and Output Vital Signs (last 24 hours): Temp Pulse Resp BP Pulse Ox 98.6 F 80 25 H 113/47 L 100 07/16/18 16:00 07/16/18 18:00 07/16/18 18:00 07/16/18 17:08 07/16/18 18:00 Intake and Output: 07/16/18 07/16/18 06:59 18:59 Intake Total 180 460 Output Total 0 Balance 180 460 - Medications Medications: Current Medications Acetaminophen (Tylenol 325mg Tab) 650 mg PO Q6 PRN PRN Reason: Fever >100.4 F Last Admin: 06/26/18 18:19 Dose: 650 mg Amiodarone HCl (Cordarone) 200 mg PO TID [facility] Last Admin: 07/16/18 17:51 Dose: 200 mg Apixaban (Eliquis) 2.5 mg PO Q48H [facility] Last Admin: 07/15/18 15:00 Dose: 2.5 mg Budesonide (Pulmicort Respules) 0.25 mg IH RBID [facility] Last Admin: 07/16/18 07:20 Dose: 0.25 mg Calcium Acetate (Phoslo) 1,334 mg PO TIDCC [facility] Last Admin: 07/16/18 17:51 Dose: 1,334 mg Diltiazem HCl (Cardizem Cd) 240 mg PO DAILY [facility] Last Admin: 07/16/18 09:27 Dose: 240 mg Docusate Sodium (Colace) 100 mg PO BID [facility] Last Admin: 07/16/18 09:24 Dose: 100 mg Famotidine (Pepcid) 20 mg PO DAILY [facility] Last Admin: 07/16/18 09:24 Dose: 20 mg Fluticasone/Vilanterol (Breo Ellipta 200-25 Mcg Inh) 1 puff INH RQD [facility] Last Admin: 07/16/18 07:20 Dose: 1 puff Glipizide (Glucotrol) 10 mg PO ACBD [facility] Last Admin: 07/16/18 17:51 Dose: 10 mg Home Med (Patient's Own Drops) 1 drop OD DAILY [facility] Last Admin: 07/16/18 09:24 Dose: 1 drop Micafungin Sodium 100 mg/ (Sodium Chloride) 100 mls @ 100 mls/hr IV Q24H [facility]; Protocol Last Admin: 07/16/18 15:17 Dose: 100 mls/hr Insulin Aspart (Novolog) 10 unit SC ONCE [facility] Insulin Aspart (Novolog) 0 unit SC ACHS [facility]; Protocol Last Admin: 07/16/18 17:52 Dose: 2 units Insulin Detemir (Levemir) 12 unit SC Q12H [facility] Last Admin: 07/16/18 12:39 Dose: 12 units Levothyroxine Sodium (Synthroid) 150 mcg PO DAILY@0630 [facility] Last Admin: 07/16/18 06:16 Dose: 150 mcg Polyethylene Glycol (Miralax) 17 gm PO DAILY PRN PRN Reason: Constipation Last Admin: 07/14/18 08:29 Dose: 17 gm Rosuvastatin Calcium (Crestor) 5 mg PO HS [facility] Last Admin: 07/15/18 22:24 Dose: 5 mg Tiotropium [place] (Spiriva) 18 mcg INH RQ24 [facility] Last Admin: 07/16/18 07:20 Dose: 18 mcg - Labs Labs: 07/16/18 08:45 07/16/18 05:55 - Constitutional Appears: Well - Head Exam Head Exam: ATRAUMATIC, NORMAL INSPECTION, NORMOCEPHALIC - Eye Exam Eye Exam: EOMI, Normal appearance, PERRL Pupil Exam: NORMAL ACCOMODATION, PERRL - ENT Exam ENT Exam: Mucous Membranes Moist, Normal Exam - Neck Exam Neck Exam: Full ROM, Normal Inspection. absent: Lymphadenopathy - Respiratory Exam Respiratory Exam: Decreased Breath Sounds - Cardiovascular Exam Cardiovascular Exam: REGULAR RHYTHM, +S1, +S2 - GI/Abdominal Exam GI & Abdominal Exam: Soft, Diminished Bowel Sounds - Rectal Exam Rectal Exam: Deferred - Neurological Exam Neurological Exam: Oriented x3 - Psychiatric Exam Psychiatric exam: Normal Mood Assessment and Plan (1) CHF exacerbation Status: Acute (2) Dyspnea Status: Acute (3) ESRD (end stage renal disease) on dialysis Status: Acute (4) Uncontrolled diabetes mellitus Status: Acute (5) MARIA EUGENIA (acute kidney injury) Status: Acute (6) Abdominal pain Status: Acute (7) Acute bronchitis Status: Acute (8) Acute kidney injury Status: Acute (9) Acute kidney injury superimposed on chronic kidney disease Status: Acute (10) Acute respiratory failure Status: Acute (11) Anemia Status: Acute (12) Anemia of chronic disease Status: Acute (13) Atrial fibrillation with controlled ventricular response Status: Acute (14) Back pain of thoracolumbar region Status: Acute (15) Bronchitis Status: Acute (16) Bronchitis Status: Acute (17) CHF (congestive heart failure) Status: Acute (18) CHF (congestive heart failure) Status: Acute (19) CKD (chronic kidney disease) stage 3, GFR 30-59 ml/min Status: Acute (20) COPD (chronic obstructive pulmonary disease) Status: Acute (21) COPD exacerbation Status: Acute (22) COPD exacerbation Status: Acute (23) Chest pain Status: Acute (24) ESR raised Status: Acute (25) ESRD (end stage renal disease) Status: Acute (26) Fluid overload Status: Acute (27) Fluid overload, unspecified Status: Acute (28) Gastritis Status: Acute (29) Hepatitis Status: Acute (30) History of asthma Status: Acute (31) History of atrial fibrillation Status: Acute (32) History of back pain Status: Acute (33) History of gastroesophageal reflux (GERD) Status: Acute (34) Hypercalcemia Status: Acute (35) Hyperlipemia Status: Acute (36) Influenza Status: Acute (37) Leucocytosis Status: Acute (38) Lower extremity pain Status: Acute (39) Multiple myeloma Status: Acute (40) Multiple myeloma Status: Acute (41) Myeloma Status: Acute (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 (43) Occult gastrointestinal hemorrhage Status: Acute (44) Paroxysmal A-fib Status: Acute (45) Pneumonia Status: Acute (46) Prophylactic measure Status: Acute (47) Pulmonary hypertension Status: Acute (48) Pulmonary hypertension Status: Acute (49) Renal failure Status: Acute (50) Respiratory tract infection Status: Acute (51) Streptococcus pneumoniae Status: Acute (52) Symptomatic anemia Status: Acute (53) Vertigo Status: Acute (54) Worsening renal function Status: Acute (55) Anemia Status: Chronic (56) Asthma Status: Chronic (57) Atrial fibrillation Status: Chronic (58) Chronic diastolic (congestive) heart failure Status: Chronic (59) Diabetes Status: Chronic (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
--- NOTE | 2018-07-16 19:28 | CP.PCM.PN ---
Subjective - Date & Time of Evaluation Date of Evaluation: 07/16/18 Time of Evaluation: 19:28 - Subjective Subjective: Patient seen and examined No events overnight Objective - Vital Signs/Intake and Output Vital Signs (last 24 hours): Temp Pulse Resp BP Pulse Ox 98.6 F 80 25 H 113/47 L 100 07/16/18 16:00 07/16/18 18:00 07/16/18 18:00 07/16/18 17:08 07/16/18 18:00 Intake and Output: 07/16/18 07/17/18 18:59 06:59 Intake Total 460 Balance 460 - Medications Medications: Current Medications Acetaminophen (Tylenol 325mg Tab) 650 mg PO Q6 PRN PRN Reason: Fever >100.4 F Last Admin: 06/26/18 18:19 Dose: 650 mg Amiodarone HCl (Cordarone) 200 mg PO TID [facility] Last Admin: 07/16/18 17:51 Dose: 200 mg Apixaban (Eliquis) 2.5 mg PO Q48H [facility] Last Admin: 07/15/18 15:00 Dose: 2.5 mg Budesonide (Pulmicort Respules) 0.25 mg IH RBID [facility] Last Admin: 07/16/18 07:20 Dose: 0.25 mg Calcium Acetate (Phoslo) 1,334 mg PO TIDCC [facility] Last Admin: 07/16/18 17:51 Dose: 1,334 mg Diltiazem HCl (Cardizem Cd) 240 mg PO DAILY [facility] Last Admin: 07/16/18 09:27 Dose: 240 mg Docusate Sodium (Colace) 100 mg PO BID [facility] Last Admin: 07/16/18 18:45 Dose: Not Given Famotidine (Pepcid) 20 mg PO DAILY [facility] Last Admin: 07/16/18 09:24 Dose: 20 mg Fluticasone/Vilanterol (Breo Ellipta 200-25 Mcg Inh) 1 puff INH RQD [facility] Last Admin: 07/16/18 07:20 Dose: 1 puff Glipizide (Glucotrol) 10 mg PO ACBD [facility] Last Admin: 07/16/18 17:51 Dose: 10 mg Home Med (Patient's Own Drops) 1 drop OD DAILY [facility] Last Admin: 07/16/18 09:24 Dose: 1 drop Micafungin Sodium 100 mg/ (Sodium Chloride) 100 mls @ 100 mls/hr IV Q24H [facility]; Protocol Last Admin: 07/16/18 15:17 Dose: 100 mls/hr Insulin Aspart (Novolog) 10 unit SC ONCE [facility] Insulin Aspart (Novolog) 0 unit SC ACHS [facility]; Protocol Last Admin: 07/16/18 17:52 Dose: 2 units Insulin Detemir (Levemir) 12 unit SC Q12H [facility] Last Admin: 07/16/18 12:39 Dose: 12 units Levothyroxine Sodium (Synthroid) 150 mcg PO DAILY@0630 [facility] Last Admin: 07/16/18 06:16 Dose: 150 mcg Polyethylene Glycol (Miralax) 17 gm PO DAILY PRN PRN Reason: Constipation Last Admin: 07/14/18 08:29 Dose: 17 gm Rosuvastatin Calcium (Crestor) 5 mg PO HS [facility] Last Admin: 07/15/18 22:24 Dose: 5 mg Tiotropium [place] (Spiriva) 18 mcg INH RQ24 [facility] Last Admin: 07/16/18 07:20 Dose: 18 mcg - Labs Labs: 07/16/18 08:45 07/16/18 05:55 - Head Exam Head Exam: NORMAL INSPECTION - Eye Exam Eye Exam: Normal appearance - ENT Exam ENT Exam: Mucous Membranes Moist - Respiratory Exam Respiratory Exam: Prolonged Expiratory Phase - Cardiovascular Exam Cardiovascular Exam: REGULAR RHYTHM, +S1, +S2 - GI/Abdominal Exam GI & Abdominal Exam: Soft, Normal Bowel Sounds - Neurological Exam Neurological Exam: Alert, Oriented x3 - Psychiatric Exam Psychiatric exam: Normal Affect, Normal Mood Assessment and Plan (1) CHF exacerbation Status: Acute (2) Dyspnea Status: Acute (3) Atrial fibrillation with RVR Status: Resolved (4) COPD (chronic obstructive pulmonary disease) Status: Acute (5) ESRD (end stage renal disease) Status: Acute - Assessment and Plan (Free Text) Plan: Breo Ellipta Ipratromium as needed HD as per schedule DVT/GI prophalaxis
--- NOTE | 2018-07-16 23:19 | CP.PCM.PN ---
Subjective - Date & Time of Evaluation Date of Evaluation: 07/16/18 Time of Evaluation: 09:00 - Subjective Subjective: no fever brother at bedside in NAD Objective - Vital Signs/Intake and Output Vital Signs (last 24 hours): Temp Pulse Resp BP Pulse Ox 99.7 F H 70 21 118/52 L 99 07/16/18 20:00 07/16/18 22:00 07/16/18 22:00 07/16/18 21:09 07/16/18 22:00 Intake and Output: 07/16/18 07/17/18 18:59 06:59 Intake Total 460 600 Balance 460 600 - Medications Medications: Current Medications Acetaminophen (Tylenol 325mg Tab) 650 mg PO Q6 PRN PRN Reason: Fever >100.4 F Last Admin: 06/26/18 18:19 Dose: 650 mg Amiodarone HCl (Cordarone) 200 mg PO TID [facility] Last Admin: 07/16/18 17:51 Dose: 200 mg Apixaban (Eliquis) 2.5 mg PO Q48H [facility] Last Admin: 07/15/18 15:00 Dose: 2.5 mg Budesonide (Pulmicort Respules) 0.25 mg IH RBID [facility] Last Admin: 07/16/18 19:34 Dose: 0.25 mg Calcium Acetate (Phoslo) 1,334 mg PO TIDCC [facility] Last Admin: 07/16/18 17:51 Dose: 1,334 mg Diltiazem HCl (Cardizem Cd) 240 mg PO DAILY [facility] Last Admin: 07/16/18 09:27 Dose: 240 mg Docusate Sodium (Colace) 100 mg PO BID [facility] Last Admin: 07/16/18 18:45 Dose: Not Given Famotidine (Pepcid) 20 mg PO DAILY [facility] Last Admin: 07/16/18 09:24 Dose: 20 mg Fluticasone/Vilanterol (Breo Ellipta 200-25 Mcg Inh) 1 puff INH RQD [facility] Last Admin: 07/16/18 07:20 Dose: 1 puff Glipizide (Glucotrol) 10 mg PO ACBD [facility] Last Admin: 07/16/18 17:51 Dose: 10 mg Home Med (Patient's Own Drops) 1 drop OD DAILY [facility] Last Admin: 07/16/18 09:24 Dose: 1 drop Micafungin Sodium 100 mg/ (Sodium Chloride) 100 mls @ 100 mls/hr IV Q24H [facility]; Protocol Last Admin: 07/16/18 15:17 Dose: 100 mls/hr Insulin Aspart (Novolog) 10 unit SC ONCE [facility] Insulin Aspart (Novolog) 0 unit SC ACHS [facility]; Protocol Last Admin: 07/16/18 21:11 Dose: Not Given Insulin Detemir (Levemir) 12 unit SC Q12H [facility] Last Admin: 07/16/18 22:43 Dose: Not Given Levothyroxine Sodium (Synthroid) 150 mcg PO DAILY@0630 [facility] Last Admin: 07/16/18 06:16 Dose: 150 mcg Polyethylene Glycol (Miralax) 17 gm PO DAILY PRN PRN Reason: Constipation Last Admin: 07/14/18 08:29 Dose: 17 gm Rosuvastatin Calcium (Crestor) 5 mg PO HS [facility] Last Admin: 07/16/18 21:13 Dose: 5 mg Tiotropium [place] (Spiriva) 18 mcg INH RQ24 [facility] Last Admin: 07/16/18 07:20 Dose: 18 mcg - Labs Labs: 07/16/18 08:45 07/16/18 05:55 - Constitutional Appears: Non-toxic, Chronically Ill - Head Exam Head Exam: NORMOCEPHALIC - Eye Exam Pupil Exam: NORMAL ACCOMODATION - ENT Exam ENT Exam: Mucous Membranes Dry - Neck Exam Neck Exam: absent: Lymphadenopathy - Respiratory Exam Respiratory Exam: Decreased Breath Sounds - Rectal Exam Rectal Exam: Deferred - Exam Exam: NORMAL INSPECTION - Extremities Exam Extremities Exam: absent: Normal Capillary Refill - Back Exam Back Exam: absent: paraspinal tenderness - Neurological Exam Neurological Exam: Alert, Awake, CN II-XII Intact, Oriented x3 Neuro motor strength exam: Left Upper Extremity: 3, Right Upper Extremity: 3, Left Lower Extremity: 3, Right Lower Extremity: 3 - Psychiatric Exam Psychiatric exam: Depressed - Skin Skin Exam: Dry Assessment and Plan (1) CHF exacerbation Status: Acute (2) Chronic a-fib Status: Acute (3) Dyspnea Status: Acute (4) ESRD (end stage renal disease) on dialysis Status: Acute (5) Uncontrolled diabetes mellitus Assessment & Plan: cont rx Status: Acute
[2018-07-17 05:54] LABS: BASO % 0.4 % (0.0-2.0); EOS % 0.2 % (0.0-4.0); HEMOGLOBIN 6.9 g/dL (11.0-16.0); LYMPH # 0.4 K/uL (1.0-4.3); LYMPH % 3.5 % (20.0-40.0); MEAN CELL VOLUME 87.7 fL (81.0-99.0); MEAN CORPUSCULAR HEMOGLOBIN 27.9 pg (27.0-31.0); MEAN CORPUSCULAR HGB CONC 31.8 g/dL (33.0-37.0); MEAN PLATELET VOLUME 11.9 fL (7.2-11.7); MONO # 0.3 K/uL (0.0-0.8); MONO % 3.1 % (0.0-10.0); NEUT % 92.8 % (50.0-75.0); PLATELET COUNT 69 K/uL (130-400); RBC 2.49 Mil/uL (3.80-5.20); RED CELL DISTRIBUTION WIDTH 16.5 % (11.5-14.5); WHITE BLOOD COUNT 10.8 K/uL (4.8-10.8)
[2018-07-17] MEDS: Levothyroxine 150 MCG TAB PO SCH (06:06)
[2018-07-17 06:17] LABS: ALBUMIN 2.5 g/dL (3.5-5.0); CALCIUM 7.6 mg/dl (8.6-10.4)
[2018-07-17] MEDS: Fluticasone-Vilanterol 200/25mcg Diskus INH SCH (07:05)
[2018-07-17] MEDS: Budesonide 0.25 mg/2 ml Inhal Susp UD IH SCH ×2 (07:05→19:38)
[2018-07-17] MEDS: Tiotropium 18 mcg Cap For Inhalation INH SCH (07:05)
[2018-07-17 08:09] LABS: LYMPHOCYTE 3 % (20-40); MONOCYTE 1 % (0-10); NEUTROPHIL 96 % (50-75); TOTAL CELLS COUNTED 100
[2018-07-17 08:10] LABS: ANISOCYTOSIS SLIGHT; HYPOCHROMIC SLIGHT; PLATELET ESTIMATE DECREASED (NORMAL); POLYCHROMIC SLIGHT
[2018-07-17 08:11] LABS: LARGE PLATELETS PRESENT
[2018-07-17] MEDS: diltiaZEM 240 mg/24 Hours CD Cap PO SCH (09:43)
[2018-07-17] MEDS: (Novolog) Insulin Aspart, Recombinant 100 u/ml 10 ml vial SC SCH ×4 (09:43→21:45)
[2018-07-17] MEDS: BROMFENAC 0.07% OD SCH (09:43)
--- NOTE | 2018-07-17 11:31 | CP.CCUPN ---
<Melanie Bailey - Last Filed: 07/17/18 11:21> CCU Subjective - Physician Review Subjective (Free Text): 07/17/18 10:46 Pt seen and evaluated this morning at the bedside. Overnight remained rate controlled with HR between 60-80 in sinus. Pt is seen awake and in not acute distress this morning. Denies chest pain, palpitations, or SOB. Plan for Dialysis today as tolerated. Critical Care Time Spent (in minutes): 35 CCU Objective - Vital Signs / Intake & Output Vital Signs (Last 4 hours): Vital Signs Temp Pulse Resp BP Pulse Ox 07/17/18 06:00 69 26 H 99 07/17/18 05:15 100/42 L 07/17/18 05:00 69 26 H 100 07/17/18 04:15 77 18 116/45 L 99 07/17/18 04:00 98.9 F 73 21 99 Intake and Output (Last 8hrs): Intake & Output 07/16/18 07/17/18 07/17/18 22:59 06:59 14:59 Intake Total 520 50 Output Total 0 Balance 520 50 Intake: Intake, IV Amount 100 Left Port-A-Cath 100 Oral 300 50 Tube Feeding 120 Output: Urine 0 Urine, Voided 0 Other: # Bowel Movements 0 - Physical Exam Head: Positive for: Atraumatic, Normocephalic Pupils: Positive for: PERRL Extroacular Muscles: Positive for: EOMI Conjunctiva: Positive for: Normal Neck: Positive for: Normal Range of Motion. Negative for: Meningeal Signs, JVD, Lymphadenopathy Respiratory/Chest: Positive for: Clear to Auscultation, Good Air Exchange. Negative for: Respiratory Distress, Accessory Muscle Use, Wheezes, Rales, Rhonchi Cardiovascular: Positive for: Murmurs (systolic ejection ), Normal S1, S2, Irregular Rhythm, Tachycardic Abdomen: Positive for: Normal Bowel Sounds. Negative for: Tenderness, Distention, Mass/Organomegaly Upper Extremity: Positive for: Normal Inspection, Normal ROM, NORMAL PULSES, Neurovascularly Intact, Capillary Refill < 2s. Negative for: Cyanosis, Edema Lower Extremity: Positive for: Normal Inspection, NORMAL PULSES, Normal ROM, Neurovascularly Intact, Capillary Refill < 2 s. Negative for: Edema, CALF TENDERNESS Neurological: Positive for: GCS=15, CN II-XII Intact, Speech Normal Skin: Positive for: Warm, Dry, Normal Color Psychiatric: Positive for: Alert, Oriented x 3 - Medications Active Medications: Active Medications Generic Name Dose Route Start Last Admin Trade Name Freq PRN Reason Stop Dose Admin Acetaminophen 650 mg 06/26/18 16:06 06/26/18 18:19 Tylenol 325mg Tab PO 650 mg Q6 PRN Administration Fever >100.4 F Amiodarone HCl 200 mg 07/14/18 18:00 07/16/18 17:51 Cordarone PO 200 mg TID MARIBETH Administration Apixaban 2.5 mg 07/05/18 14:30 07/15/18 15:00 Eliquis PO 2.5 mg Q48H MARIBETH Administration Budesonide 0.25 mg 07/07/18 20:00 07/16/18 19:34 Pulmicort Respules IH 0.25 mg RBID MARIBETH Administration Calcium Acetate 1,334 mg 07/08/18 17:00 07/16/18 17:51 Phoslo PO 1,334 mg TIDCC MARIBETH Administration Diltiazem HCl 240 mg 07/02/18 10:00 07/16/18 09:27 Cardizem Cd PO 240 mg DAILY MARIBETH Administration Docusate Sodium 100 mg 07/10/18 11:30 07/16/18 18:45 Colace PO Not Given BID MARIBETH Famotidine 20 mg 06/26/18 10:00 07/16/18 09:24 Pepcid PO 20 mg DAILY MARIBETH Administration Fluticasone/Vilanterol 1 puff 06/26/18 08:00 07/16/18 07:20 Breo Ellipta 200-25 Mcg Inh INH 1 puff RQD MARIBETH Administration Glipizide 10 mg 06/26/18 07:30 07/16/18 17:51 Glucotrol PO 10 mg ACBD MARIBETH Administration Home Med 1 drop 07/11/18 10:00 07/16/18 09:24 Patient's Own Drops OD 1 drop DAILY MARIBETH Administration Micafungin Sodium 100 mg/ 100 mls @ 100 mls/hr 07/14/18 16:00 07/16/18 15:17 Sodium Chloride IV 100 mls/hr Q24H MARIBETH Administration Protocol Insulin Aspart 10 unit 06/25/18 23:00 Novolog SC ONCE MARIBETH Insulin Aspart 0 unit 06/26/18 07:30 07/16/18 21:11 Novolog SC Not Given ACHS [facility] Protocol Insulin Detemir 12 unit 06/25/18 23:00 07/16/18 22:43 Levemir SC Not Given Q12H [facility] Levothyroxine Sodium 150 mcg 06/26/18 06:30 07/17/18 06:06 Synthroid PO 150 mcg DAILY@0630 MARIBETH Administration Polyethylene Glycol 17 gm 07/10/18 16:30 07/14/18 08:29 Miralax PO 17 gm DAILY PRN Administration Constipation Rosuvastatin Calcium 5 mg 06/25/18 23:00 07/16/18 21:13 Crestor PO 5 mg HS MARIBETH Administration Tiotropium Woodruff 18 mcg 06/26/18 08:00 07/16/18 07:20 Spiriva INH 18 mcg RQ24 MARIBETH Administration - Patient Studies Lab Studies: Microbiology Studies 07/15/18 16:00 Blood Culture - Preliminary Blood-Venous NO GROWTH AFTER 24 HOURS 07/15/18 15:30 Blood Culture - Preliminary Blood-Venous NO GROWTH AFTER 24 HOURS Lab Studies 07/17/18 07/17/18 07/16/18 Range/Units 05:47 05:47 08:45 WBC 10.8 15.4 H (4.8-10.8) K/uL RBC 2.49 L 2.88 L (3.80-5.20) Mil/uL Hgb 6.9 L 7.9 L (11.0-16.0) g/dL Hct 21.8 L 25.1 L (34.0-47.0) % MCV 87.7 87.4 (81.0-99.0) fL MCH 27.9 27.3 (27.0-31.0) pg MCHC 31.8 L 31.2 L (33.0-37.0) g/dL RDW 16.5 H 16.5 H (11.5-14.5) % Plt Count 69 L 79 L (130-400) K/uL MPV 11.9 H 11.1 (7.2-11.7) fL Neut % (Auto) 92.8 H (50.0-75.0) % Lymph % (Auto) 3.5 L (20.0-40.0) % Craig % (Auto) 3.1 (0.0-10.0) % Eos % (Auto) 0.2 (0.0-4.0) % Baso % (Auto) 0.4 (0.0-2.0) % Neut # (Auto) 10.0 H (1.8-7.0) K/uL Lymph # (Auto) 0.4 L (1.0-4.3) K/uL Craig # (Auto) 0.3 (0.0-0.8) K/uL Eos # (Auto) 0.0 (0.0-0.7) K/uL Baso # (Auto) 0.0 (0.0-0.2) K/uL Neutrophils % (Manual) (50-75) % Lymphocytes % (Manual) (20-40) % Monocytes % (Manual) (0-10) % Platelet Estimate (NORMAL) Polychromasia Hypochromasia (manual) Anisocytosis (manual) Ovalocytes Sodium 128 L (132-148) mmol/L Potassium 5.3 H (3.6-5.2) mmol/L Chloride 91 L (98-107) mmol/L Carbon Dioxide 29 (22-30) mmol/L Anion Gap 13 (10-20) BUN 67 H (7-17) mg/dL Creatinine 3.5 H (0.7-1.2) mg/dL Est GFR ( Amer) 15 Est GFR (Non-Af Amer) 13 Random Glucose 127 H (65-105) mg/dL Calcium 7.6 L (8.6-10.4) mg/dl Phosphorus 2.4 L (2.5-4.5) mg/dL Magnesium 2.1 (1.6-2.3) mg/dL Total Bilirubin 0.4 (0.2-1.3) mg/dL AST 41 H D (14-36) U/L ALT 47 (9-52) U/L Alkaline Phosphatase 139 H (38-126) U/L Total Protein 5.0 L (6.3-8.3) g/dL Albumin 2.5 L (3.5-5.0) g/dL Globulin 2.5 (2.2-3.9) gm/dL Albumin/Globulin Ratio 1.0 (1.0-2.1) 07/16/18 Range/Units 06:00 WBC (4.8-10.8) K/uL RBC (3.80-5.20) Mil/uL Hgb (11.0-16.0) g/dL Hct (34.0-47.0) % MCV (81.0-99.0) fL MCH (27.0-31.0) pg MCHC (33.0-37.0) g/dL RDW (11.5-14.5) % Plt Count (130-400) K/uL MPV (7.2-11.7) fL Neut % (Auto) (50.0-75.0) % Lymph % (Auto) (20.0-40.0) % Craig % (Auto) (0.0-10.0) % Eos % (Auto) (0.0-4.0) % Baso % (Auto) (0.0-2.0) % Neut # (Auto) (1.8-7.0) K/uL Lymph # (Auto) (1.0-4.3) K/uL Craig # (Auto) (0.0-0.8) K/uL Eos # (Auto) (0.0-0.7) K/uL Baso # (Auto) (0.0-0.2) K/uL Neutrophils % (Manual) 97 H (50-75) % Lymphocytes % (Manual) 2 L (20-40) % Monocytes % (Manual) 1 (0-10) % Platelet Estimate Decreased L (NORMAL) Polychromasia Slight Hypochromasia (manual) Slight Anisocytosis (manual) Slight Ovalocytes Slight Sodium (132-148) mmol/L Potassium (3.6-5.2) mmol/L Chloride (98-107) mmol/L Carbon Dioxide (22-30) mmol/L Anion Gap (10-20) BUN (7-17) mg/dL Creatinine (0.7-1.2) mg/dL Est GFR ( Amer) Est GFR (Non-Af Amer) Random Glucose (65-105) mg/dL Calcium (8.6-10.4) mg/dl Phosphorus (2.5-4.5) mg/dL Magnesium (1.6-2.3) mg/dL Total Bilirubin (0.2-1.3) mg/dL AST (14-36) U/L ALT (9-52) U/L Alkaline Phosphatase (38-126) U/L Total Protein (6.3-8.3) g/dL Albumin (3.5-5.0) g/dL Globulin (2.2-3.9) gm/dL Albumin/Globulin Ratio (1.0-2.1) Laboratory Results - last 24 hr 07/16/18 07/16/18 07/17/18 06:00 08:45 05:47 WBC 15.4 H 10.8 RBC 2.88 L 2.49 L Hgb 7.9 L 6.9 L Hct 25.1 L 21.8 L MCV 87.4 87.7 MCH 27.3 27.9 MCHC 31.2 L 31.8 L RDW 16.5 H 16.5 H Plt Count 79 L 69 L MPV 11.1 11.9 H Neut % (Auto) 92.8 H Lymph % (Auto) 3.5 L Craig % (Auto) 3.1 Eos % (Auto) 0.2 Baso % (Auto) 0.4 Neut # (Auto) 10.0 H Lymph # (Auto) 0.4 L Craig # (Auto) 0.3 Eos # (Auto) 0.0 Baso # (Auto) 0.0 Neutrophils % (Manual) 97 H Lymphocytes % (Manual) 2 L Monocytes % (Manual) 1 Platelet Estimate Decreased L Polychromasia Slight Hypochromasia (manual) Slight Anisocytosis (manual) Slight Ovalocytes Slight Sodium Potassium Chloride Carbon Dioxide Anion Gap BUN Creatinine Est GFR ( Amer) Est GFR (Non-Af Amer) Random Glucose Calcium Phosphorus Magnesium Total Bilirubin AST ALT Alkaline Phosphatase Total Protein Albumin Globulin Albumin/Globulin Ratio 07/17/18 05:47 WBC RBC Hgb Hct MCV MCH MCHC RDW Plt Count MPV Neut % (Auto) Lymph % (Auto) Craig % (Auto) Eos % (Auto) Baso % (Auto) Neut # (Auto) Lymph # (Auto) Craig # (Auto) Eos # (Auto) Baso # (Auto) Neutrophils % (Manual) Lymphocytes % (Manual) Monocytes % (Manual) Platelet Estimate Polychromasia Hypochromasia (manual) Anisocytosis (manual) Ovalocytes Sodium 128 L Potassium 5.3 H Chloride 91 L Carbon Dioxide 29 Anion Gap 13 BUN 67 H Creatinine 3.5 H Est GFR ( Amer) 15 Est GFR (Non-Af Amer) 13 Random Glucose 127 H Calcium 7.6 L Phosphorus 2.4 L Magnesium 2.1 Total Bilirubin 0.4 AST 41 H D ALT 47 Alkaline Phosphatase 139 H Total Protein 5.0 L Albumin 2.5 L Globulin 2.5 Albumin/Globulin Ratio 1.0 Fingerstick Blood Sugar Results: 65 Critical Care Progress Note - Nutrition Nutrition: Nutrition Category Date Time Status Renal Diet [DIET] Diets 06/26/18 Breakfast Active Assessment/Plan - Assessment and Plan (Free Text) Assessment: 83 y o female with PMhx HTN, hypothyroidism, A-fib, DM, anemia, multiple myeloma, CHF, and COPD who presented on this current admission with hyperglycemia and was admitted to medical floor for further management. S/p [employer] on 06/26/18 for tachycardia s/p HD, which required admission to ICU for A-fib with RVR. Currently on PO Cardizem and Amiodorone and has been in normal sinus rhythm overnight. Pt for possible cardiac ablation as per Dr. Gold pending family consent. Also noted to be hyperthyroid on labs which may be contributing to arrythmias. Plan: Neuro: -AAOx1, no gross deficits on exam, will cont to monitor -Likely underlying dementia Cardio: - Hemodynamically stable - Amiodorone 200mg TID and Cardizem 240 po daily - Continue w/ Eliquis 2.5 mg renally dosed. Will check for Factor 10 level. - C/W Amiodarone PO tid, Cardizem daily - Possible cardiac ablation as per Dr. Gold Pulm: -Hx COPD -C/w Pulmicort, Spiriva, Fluticasone GI: -Renal diet -Pepcid Renal: -Hx ESRD on HD MWF -Nephro - Dr. Bill -EPO MWF Heme: -H g 6.9 this am. 2 units PRBC ordered to be administered with HD - Platelets 69, will continue to monitor. Consider holding Eliquis if continues to drop or supratherapeutic (checking Factor 10 level) - Likely ACD, receiving EPO dialy ID: -Leukocytosis trending down, 10.8 this morning -Afebrile, Tmax 99.7 -S/p Azithromycin and Cefepime for tx of PNA -Micafungin added by ID given positive sputum cx for yeast on 07/10 -Flu swab neg -ID consulted (Dr. Luong), recs appreciated Endo: - Hx hypothyroidism; On Synthroid 150mg daily. TSH low (0.09) and T4 high (3.23) from 06/26 - Will repeat Thyroid studies and hold Synthroid for now as this may be contributing to patents arrhythmias -Hx DM; Insulin aspart 20 U sc acb, Levemir 12 U sc q12h, Glipizide 10 mg PO acbd, SISS for coverage PPX: -GI proph - Pepcid, -DVT proph - SCD, Eliquis renally dosed Pt seen, examined with, and plan discussed with Dr. Kessler, attending physician. Melanie Bailey, PGY2 <Pepe Kessler S - Last Filed: 07/17/18 15:43> CCU Objective - Vital Signs / Intake & Output Vital Signs (Last 4 hours): Vital Signs Temp Pulse Pulse Resp BP BP Pulse Ox 07/17/18 15:00 87 25 H 86 L 07/17/18 14:58 98.5 F 83 25 H 100/46 L 99 07/17/18 14:44 88 21 104/38 L 100 07/17/18 14:29 90 28 H 90/37 L 78 L 07/17/18 14:28 98.5 F 88 28 H 90/37 L 07/17/18 14:14 101 H 21 98/34 L 100 07/17/18 14:13 98.5 F 94 H 25 H 98/34 L 90 L 07/17/18 14:00 93 H 22 99 07/17/18 13:58 98.6 F 96 H 18 104/32 L 100 07/17/18 13:57 99 H 24 98 07/17/18 13:34 134 H 23 101/81 81 L 07/17/18 13:05 103 H 18 115/39 L 97 07/17/18 13:00 113 H 25 H 97 07/17/18 12:19 109 H 19 103/45 L 78 L 07/17/18 12:04 110 H 21 115/39 L 77 L 07/17/18 12:00 98 F 117 H 21 70 L 07/17/18 11:49 97.8 F 108 H 18 107/41 L 07/17/18 11:48 107 H 20 107/41 L 95 Intake and Output (Last 8hrs): Intake & Output 07/17/18 07/17/18 07/17/18 06:59 14:59 22:59 Intake Total 50 485 Output Total 0 2900 Balance 50 -2415 Intake: Oral 50 120 Blood Product 325 Apheresis Rbc Cp2d As3 Lr 0 1st Unit [id number] Red Blood Cells Cpd As1 325 Lr Unit [id number] Other 40 Red Blood Cells Cpd As1 40 Lr Unit [id number] Output: Urine 0 Urine, Voided 0 Other 2900 Other: # Bowel Movements 0 - Medications Active Medications: Active Medications Generic Name Dose Route Start Last Admin Trade Name Freq PRN Reason Stop Dose Admin Acetaminophen 650 mg 06/26/18 16:06 06/26/18 18:19 Tylenol 325mg Tab PO 650 mg Q6 PRN Administration Fever >100.4 F Amiodarone HCl 200 mg 07/14/18 18:00 07/17/18 14:05 Cordarone PO 200 mg TID MARIBETH Administration Apixaban 2.5 mg 07/05/18 14:30 07/17/18 14:05 Eliquis PO 2.5 mg Q48H MARIBETH Administration Budesonide 0.25 mg 07/07/18 20:00 07/17/18 07:05 Pulmicort Respules IH 0.25 mg RBID MARIBETH Administration Calcium Acetate 667 mg 07/17/18 12:30 07/17/18 12:40 Phoslo PO 667 mg TIDCC MARIBETH Administration Diltiazem HCl 240 mg 07/02/18 10:00 07/17/18 09:43 Cardizem Cd PO 240 mg DAILY MARIBETH Administration Docusate Sodium 100 mg 07/10/18 11:30 07/17/18 09:43 Colace PO 100 mg BID MARIBETH Administration Famotidine 20 mg 06/26/18 10:00 07/17/18 09:42 Pepcid PO 20 mg DAILY MARIBETH Administration Fluticasone/Vilanterol 1 puff 06/26/18 08:00 07/17/18 07:05 Breo Ellipta 200-25 Mcg Inh INH 1 puff RQD MARIBETH Administration Glipizide 10 mg 06/26/18 07:30 07/17/18 09:44 Glucotrol PO Not Given ACBD [facility] Home Med 1 drop 07/11/18 10:00 04/03/19 09:43 Patient's Own Drops OD 1 drop DAILY MARIBETH Administration Micafungin Sodium 100 mg/ 100 mls @ 100 mls/hr 07/14/18 16:00 07/16/18 15:17 Sodium Chloride IV 100 mls/hr Q24H MARIBETH Administration Protocol Insulin Aspart 10 unit 06/25/18 23:00 Novolog SC ONCE MARIBETH Insulin Aspart 0 unit 06/26/18 07:30 07/17/18 12:41 Novolog SC 2 units ACHS MARIBETH Administration Protocol Insulin Detemir 12 unit 06/25/18 23:00 07/17/18 12:41 Levemir SC 12 units Q12H MARIBETH Administration Levothyroxine Sodium 150 mcg 06/26/18 06:30 07/17/18 06:06 Synthroid PO 150 mcg DAILY@0630 MARIBETH Administration Polyethylene Glycol 17 gm 07/10/18 16:30 07/14/18 08:29 Miralax PO 17 gm DAILY PRN Administration Constipation Rosuvastatin Calcium 5 mg 06/25/18 23:00 07/16/18 21:13 Crestor PO 5 mg HS MARIBETH Administration Tiotropium Woodruff 18 mcg 06/26/18 08:00 07/17/18 07:05 Spiriva INH 18 mcg RQ24 MARIBETH Administration - Patient Studies Lab Studies: Microbiology Studies 07/15/18 16:00 Blood Culture - Preliminary Blood-Venous NO GROWTH AFTER 24 HOURS 07/15/18 15:30 Blood Culture - Preliminary Blood-Venous NO GROWTH AFTER 24 HOURS Lab Studies 07/17/18 07/17/18 07/17/18 Range/Units 11:51 11:51 08:51 WBC (4.8-10.8) K/uL RBC (3.80-5.20) Mil/uL Hgb (11.0-16.0) g/dL Hct (34.0-47.0) % MCV (81.0-99.0) fL MCH (27.0-31.0) pg MCHC (33.0-37.0) g/dL RDW (11.5-14.5) % Plt Count (130-400) K/uL MPV (7.2-11.7) fL Neut % (Auto) (50.0-75.0) % Lymph % (Auto) (20.0-40.0) % Craig % (Auto) (0.0-10.0) % Eos % (Auto) (0.0-4.0) % Baso % (Auto) (0.0-2.0) % Neut # (Auto) (1.8-7.0) K/uL Lymph # (Auto) (1.0-4.3) K/uL Craig # (Auto) (0.0-0.8) K/uL Eos # (Auto) (0.0-0.7) K/uL Baso # (Auto) (0.0-0.2) K/uL Neutrophils % (Manual) (50-75) % Lymphocytes % (Manual) (20-40) % Monocytes % (Manual) (0-10) % Platelet Estimate (NORMAL) Large Platelets Polychromasia Hypochromasia (manual) Anisocytosis (manual) Sodium (132-148) mmol/L Potassium (3.6-5.2) mmol/L Chloride (98-107) mmol/L Carbon Dioxide (22-30) mmol/L Anion Gap (10-20) BUN (7-17) mg/dL Creatinine (0.7-1.2) mg/dL Est GFR ( Amer) Est GFR (Non-Af Amer) Random Glucose (65-105) mg/dL Calcium (8.6-10.4) mg/dl Phosphorus (2.5-4.5) mg/dL Magnesium (1.6-2.3) mg/dL Total Bilirubin (0.2-1.3) mg/dL AST (14-36) U/L ALT (9-52) U/L Alkaline Phosphatase (38-126) U/L Total Protein (6.3-8.3) g/dL Albumin (3.5-5.0) g/dL Globulin (2.2-3.9) gm/dL Albumin/Globulin Ratio (1.0-2.1) Free T4 1.79 (0.78-2.19) ng/dL Free T3 pg/mL 1.54 L (2.77-5.27) pg/mL TSH 3rd Generation 0.40 L (0.46-4.68) mIU/L Blood Type B POSITIVE Antibody Screen Negative 04/03/19 04/03/19 Range/Units 05:47 05:47 WBC 10.8 (4.8-10.8) K/uL RBC 2.49 L (3.80-5.20) Mil/uL Hgb 6.9 L (11.0-16.0) g/dL Hct 21.8 L (34.0-47.0) % MCV 87.7 (81.0-99.0) fL MCH 27.9 (27.0-31.0) pg MCHC 31.8 L (33.0-37.0) g/dL RDW 16.5 H (11.5-14.5) % Plt Count 69 L (130-400) K/uL MPV 11.9 H (7.2-11.7) fL Neut % (Auto) 92.8 H (50.0-75.0) % Lymph % (Auto) 3.5 L (20.0-40.0) % Craig % (Auto) 3.1 (0.0-10.0) % Eos % (Auto) 0.2 (0.0-4.0) % Baso % (Auto) 0.4 (0.0-2.0) % Neut # (Auto) 10.0 H (1.8-7.0) K/uL Lymph # (Auto) 0.4 L (1.0-4.3) K/uL Craig # (Auto) 0.3 (0.0-0.8) K/uL Eos # (Auto) 0.0 (0.0-0.7) K/uL Baso # (Auto) 0.0 (0.0-0.2) K/uL Neutrophils % (Manual) 96 H (50-75) % Lymphocytes % (Manual) 3 L (20-40) % Monocytes % (Manual) 1 (0-10) % Platelet Estimate Decreased L (NORMAL) Large Platelets Present Polychromasia Slight Hypochromasia (manual) Slight Anisocytosis (manual) Slight Sodium 128 L (132-148) mmol/L Potassium 5.3 H (3.6-5.2) mmol/L Chloride 91 L (98-107) mmol/L Carbon Dioxide 29 (22-30) mmol/L Anion Gap 13 (10-20) BUN 67 H (7-17) mg/dL Creatinine 3.5 H (0.7-1.2) mg/dL Est GFR ( Amer) 15 Est GFR (Non-Af Amer) 13 Random Glucose 127 H (65-105) mg/dL Calcium 7.6 L (8.6-10.4) mg/dl Phosphorus 2.4 L (2.5-4.5) mg/dL Magnesium 2.1 (1.6-2.3) mg/dL Total Bilirubin 0.4 (0.2-1.3) mg/dL AST 41 H D (14-36) U/L ALT 47 (9-52) U/L Alkaline Phosphatase 139 H (38-126) U/L Total Protein 5.0 L (6.3-8.3) g/dL Albumin 2.5 L (3.5-5.0) g/dL Globulin 2.5 (2.2-3.9) gm/dL Albumin/Globulin Ratio 1.0 (1.0-2.1) Free T4 (0.78-2.19) ng/dL Free T3 pg/mL (2.77-5.27) pg/mL TSH 3rd Generation (0.46-4.68) mIU/L Blood Type Antibody Screen Laboratory Results - last 24 hr 07/17/18 07/17/18 07/17/18 05:47 05:47 08:51 WBC 10.8 RBC 2.49 L Hgb 6.9 L Hct 21.8 L MCV 87.7 MCH 27.9 MCHC 31.8 L RDW 16.5 H Plt Count 69 L MPV 11.9 H Neut % (Auto) 92.8 H Lymph % (Auto) 3.5 L Craig % (Auto) 3.1 Eos % (Auto) 0.2 Baso % (Auto) 0.4 Neut # (Auto) 10.0 H Lymph # (Auto) 0.4 L Craig # (Auto) 0.3 Eos # (Auto) 0.0 Baso # (Auto) 0.0 Neutrophils % (Manual) 96 H Lymphocytes % (Manual) 3 L Monocytes % (Manual) 1 Platelet Estimate Decreased L Large Platelets Present Polychromasia Slight Hypochromasia (manual) Slight Anisocytosis (manual) Slight Sodium 128 L Potassium 5.3 H Chloride 91 L Carbon Dioxide 29 Anion Gap 13 BUN 67 H Creatinine 3.5 H Est GFR ( Amer) 15 Est GFR (Non-Af Amer) 13 Random Glucose 127 H Calcium 7.6 L Phosphorus 2.4 L Magnesium 2.1 Total Bilirubin 0.4 AST 41 H D ALT 47 Alkaline Phosphatase 139 H Total Protein 5.0 L Albumin 2.5 L Globulin 2.5 Albumin/Globulin Ratio 1.0 Free T4 Free T3 pg/mL TSH 3rd Generation Blood Type B POSITIVE Antibody Screen Negative 07/17/18 07/17/18 11:51 11:51 WBC RBC Hgb Hct MCV MCH MCHC RDW Plt Count MPV Neut % (Auto) Lymph % (Auto) Craig % (Auto) Eos % (Auto) Baso % (Auto) Neut # (Auto) Lymph # (Auto) Craig # (Auto) Eos # (Auto) Baso # (Auto) Neutrophils % (Manual) Lymphocytes % (Manual) Monocytes % (Manual) Platelet Estimate Large Platelets Polychromasia Hypochromasia (manual) Anisocytosis (manual) Sodium Potassium Chloride Carbon Dioxide Anion Gap BUN Creatinine Est GFR ( Amer) Est GFR (Non-Af Amer) Random Glucose Calcium Phosphorus Magnesium Total Bilirubin AST ALT Alkaline Phosphatase Total Protein Albumin Globulin Albumin/Globulin Ratio Free T4 1.79 Free T3 pg/mL 1.54 L TSH 3rd Generation 0.40 L Blood Type Antibody Screen Critical Care Progress Note - Nutrition Nutrition: Nutrition Category Date Time Status Renal Diet [DIET] Diets 06/26/18 Breakfast Active Attending/Attestation - Attestation I have personally seen and examined this patient.: Yes I have fully participated in the care of the patient.: Yes I have reviewed all pertinent clinical information: Yes Notes (Text): 07/17/18 15:42 Patient seen and examined Remains on amiodarone and Cardizem Status post hemodialysis Seen by cardiology Possible EPS study Transfer to telemetry
--- NOTE | 2018-07-17 12:01 | CP.PCM.PN ---
Subjective - Date & Time of Evaluation Date of Evaluation: 07/17/18 Time of Evaluation: 11:57 - Subjective Subjective: Pt feels ok Objective - Vital Signs/Intake and Output Vital Signs (last 24 hours): Temp Pulse Resp BP Pulse Ox 97.8 F 108 H 18 107/41 L 99 07/17/18 11:49 07/17/18 11:49 07/17/18 11:49 07/17/18 11:49 07/17/18 09:19 Intake and Output: 07/17/18 07/17/18 06:59 18:59 Intake Total 350 365 Output Total 0 Balance 350 365 - Medications Medications: Current Medications Acetaminophen (Tylenol 325mg Tab) 650 mg PO Q6 PRN PRN Reason: Fever >100.4 F Last Admin: 06/26/18 18:19 Dose: 650 mg Amiodarone HCl (Cordarone) 200 mg PO TID [facility] Last Admin: 07/16/18 17:51 Dose: 200 mg Apixaban (Eliquis) 2.5 mg PO Q48H [facility] Last Admin: 07/15/18 15:00 Dose: 2.5 mg Budesonide (Pulmicort Respules) 0.25 mg IH RBID [facility] Last Admin: 07/16/18 19:34 Dose: 0.25 mg Calcium Acetate (Phoslo) 1,334 mg PO TIDCC [facility] Last Admin: 07/17/18 09:43 Dose: 1,334 mg Diltiazem HCl (Cardizem Cd) 240 mg PO DAILY [facility] Last Admin: 07/17/18 09:43 Dose: 240 mg Docusate Sodium (Colace) 100 mg PO BID [facility] Last Admin: 07/17/18 09:43 Dose: 100 mg Famotidine (Pepcid) 20 mg PO DAILY [facility] Last Admin: 07/17/18 09:42 Dose: 20 mg Fluticasone/Vilanterol (Breo Ellipta 200-25 Mcg Inh) 1 puff INH RQD [facility] Last Admin: 07/16/18 07:20 Dose: 1 puff Glipizide (Glucotrol) 10 mg PO ACBD [facility] Last Admin: 07/17/18 09:44 Dose: Not Given Home Med (Patient's Own Drops) 1 drop OD DAILY [facility] Last Admin: 07/17/18 09:43 Dose: 1 drop Micafungin Sodium 100 mg/ (Sodium Chloride) 100 mls @ 100 mls/hr IV Q24H [facility]; Protocol Last Admin: 07/16/18 15:17 Dose: 100 mls/hr Insulin Aspart (Novolog) 10 unit SC ONCE MARIBETH Insulin Aspart (Novolog) 0 unit SC ACHS [facility]; Protocol Last Admin: 07/17/18 09:43 Dose: Not Given Insulin Detemir (Levemir) 12 unit SC Q12H [facility] Last Admin: 07/16/18 22:43 Dose: Not Given Levothyroxine Sodium (Synthroid) 150 mcg PO DAILY@0630 [facility] Last Admin: 07/17/18 06:06 Dose: 150 mcg Polyethylene Glycol (Miralax) 17 gm PO DAILY PRN PRN Reason: Constipation Last Admin: 07/14/18 08:29 Dose: 17 gm Rosuvastatin Calcium (Crestor) 5 mg PO HS [facility] Last Admin: 07/16/18 21:13 Dose: 5 mg Tiotropium [place] (Spiriva) 18 mcg INH RQ24 [facility] Last Admin: 07/16/18 07:20 Dose: 18 mcg - Labs Labs: 07/17/18 05:47 07/17/18 05:47 - Constitutional Appears: Chronically Ill - Head Exam Head Exam: ATRAUMATIC, NORMAL INSPECTION - Eye Exam Eye Exam: EOMI, Normal appearance - ENT Exam ENT Exam: Mucous Membranes Moist - Neck Exam Neck Exam: Full ROM - Respiratory Exam Respiratory Exam: Rales, NORMAL BREATHING PATTERN - Cardiovascular Exam Cardiovascular Exam: Irregular Rhythm - GI/Abdominal Exam GI & Abdominal Exam: Normal Bowel Sounds - Extremities Exam Extremities Exam: Normal Inspection - Back Exam Back Exam: NORMAL INSPECTION - Neurological Exam Neurological Exam: Alert, Awake, Oriented x3 - Psychiatric Exam Psychiatric exam: Anxious Assessment and Plan - Assessment and Plan (Free Text) Assessment: 1. Pt receiving transfusion: no bleeding noted, on eliquis. 2. Aflutter: rate is still a bit fast about 115 bpm. Anemia is probably a factor, would reassess HR after transfusion.. If still fast in spite of meds, then ablation can be entertained, providing family consents, and patient's life expectancy with m myeloma is fair. Amio tid dose is only a temprary dose and should be tapered over the next few weeks to avoid higher risk of pulmonary toxicity. pt has already undergone cardioversion, and did not maintain nsr. 3. CHF on cxr, rales: LV EF is normal: Best treatment is heart rate control and fluid removal from dialysis.
--- NOTE | 2018-07-17 12:16 | CP.PCM.PN ---
Subjective - Date & Time of Evaluation Date of Evaluation: 07/17/18 Time of Evaluation: 12:13 - Subjective Subjective: seen post dialysis now tolerated UF 2200ml s/p blood transfusion -1 unit prbcs now in a flutter- HR-around 108 afebrile now, leukocytosis improving feels ok Objective - Vital Signs/Intake and Output Vital Signs (last 24 hours): Temp Pulse Resp BP Pulse Ox 97.8 F 110 H 21 115/39 L 77 L 07/17/18 11:49 07/17/18 12:04 07/17/18 12:04 07/17/18 12:04 07/17/18 12:04 Intake and Output: 07/17/18 07/17/18 06:59 18:59 Intake Total 350 485 Output Total 0 Balance 350 485 - Medications Medications: Current Medications Acetaminophen (Tylenol 325mg Tab) 650 mg PO Q6 PRN PRN Reason: Fever >100.4 F Last Admin: 06/26/18 18:19 Dose: 650 mg Amiodarone HCl (Cordarone) 200 mg PO TID [facility] Last Admin: 07/16/18 17:51 Dose: 200 mg Apixaban (Eliquis) 2.5 mg PO Q48H [facility] Last Admin: 07/15/18 15:00 Dose: 2.5 mg Budesonide (Pulmicort Respules) 0.25 mg IH RBID [facility] Last Admin: 07/16/18 19:34 Dose: 0.25 mg Calcium Acetate (Phoslo) 1,334 mg PO TIDCC [facility] Last Admin: 07/17/18 09:43 Dose: 1,334 mg Diltiazem HCl (Cardizem Cd) 240 mg PO DAILY [facility] Last Admin: 07/17/18 09:43 Dose: 240 mg Docusate Sodium (Colace) 100 mg PO BID [facility] Last Admin: 07/17/18 09:43 Dose: 100 mg Famotidine (Pepcid) 20 mg PO DAILY [facility] Last Admin: 07/17/18 09:42 Dose: 20 mg Fluticasone/Vilanterol (Breo Ellipta 200-25 Mcg Inh) 1 puff INH RQD [facility] Last Admin: 07/16/18 07:20 Dose: 1 puff Glipizide (Glucotrol) 10 mg PO ACBD [facility] Last Admin: 07/17/18 09:44 Dose: Not Given Home Med (Patient's Own Drops) 1 drop OD DAILY [facility] Last Admin: 07/17/18 09:43 Dose: 1 drop Micafungin Sodium 100 mg/ (Sodium Chloride) 100 mls @ 100 mls/hr IV Q24H [facility]; Protocol Last Admin: 07/16/18 15:17 Dose: 100 mls/hr Insulin Aspart (Novolog) 10 unit SC ONCE [facility]IBETH Insulin Aspart (Novolog) 0 unit SC ACHS [facility]; Protocol Last Admin: 07/17/18 09:43 Dose: Not Given Insulin Detemir (Levemir) 12 unit SC Q12H [facility] Last Admin: 07/16/18 22:43 Dose: Not Given Levothyroxine Sodium (Synthroid) 150 mcg PO DAILY@0630 [facility] Last Admin: 07/17/18 06:06 Dose: 150 mcg Polyethylene Glycol (Miralax) 17 gm PO DAILY PRN PRN Reason: Constipation Last Admin: 07/14/18 08:29 Dose: 17 gm Rosuvastatin Calcium (Crestor) 5 mg PO HS [facility] Last Admin: 07/16/18 21:13 Dose: 5 mg Tiotropium [place] (Spiriva) 18 mcg INH RQ24 [facility] Last Admin: 07/16/18 07:20 Dose: 18 mcg - Labs Labs: 07/17/18 05:47 07/17/18 05:47 - Constitutional Appears: No Acute Distress, Chronically Ill - Head Exam Head Exam: ATRAUMATIC, NORMAL INSPECTION - Eye Exam Eye Exam: EOMI, Normal appearance - Neck Exam Neck Exam: Normal Inspection. absent: Tenderness - Respiratory Exam Respiratory Exam: Clear to Ausculation Bilateral, NORMAL BREATHING PATTERN - Cardiovascular Exam Cardiovascular Exam: REGULAR RHYTHM, +S1 - GI/Abdominal Exam GI & Abdominal Exam: Soft. absent: Tenderness - Extremities Exam Extremities Exam: Normal Inspection. absent: Tenderness - Neurological Exam Neurological Exam: Awake, CN II-XII Intact - Skin Skin Exam: Dry, Warm Assessment and Plan (1) Atrial fibrillation with RVR Status: Resolved (2) CHF exacerbation Status: Acute (3) COPD exacerbation Status: Acute (4) Multiple myeloma Status: Acute - Assessment and Plan (Free Text) Plan: lower ca acetate dose rate control as per cardio- cardioversion being considered if needed follow up chemistries [facility]
[2018-07-17] MEDS: Insulin Detemir 100 units/ml Vial (Levemir) SC SCH ×2 (12:41→22:45)
--- NOTE | 2018-07-17 13:20 | CP.PCM.PN ---
Subjective - Date & Time of Evaluation Date of Evaluation: 07/17/18 Time of Evaluation: 13:20 - Subjective Subjective: Patient seen and examined No events overnight Reports exertional dyspnea Objective - Vital Signs/Intake and Output Vital Signs (last 24 hours): Temp Pulse Resp BP Pulse Ox 98 F 110 H 21 115/39 L 77 L 07/17/18 12:00 07/17/18 12:04 07/17/18 12:04 07/17/18 12:04 07/17/18 12:04 Intake and Output: 07/17/18 07/17/18 06:59 18:59 Intake Total 350 485 Output Total 0 Balance 350 485 - Medications Medications: Current Medications Acetaminophen (Tylenol 325mg Tab) 650 mg PO Q6 PRN PRN Reason: Fever >100.4 F Last Admin: 06/26/18 18:19 Dose: 650 mg Amiodarone HCl (Cordarone) 200 mg PO TID [facility] Last Admin: 07/17/18 09:40 Dose: 200 mg Apixaban (Eliquis) 2.5 mg PO Q48H [facility] Last Admin: 07/15/18 15:00 Dose: 2.5 mg Budesonide (Pulmicort Respules) 0.25 mg IH RBID [facility] Last Admin: 07/16/18 19:34 Dose: 0.25 mg Calcium Acetate (Phoslo) 667 mg PO TIDCC [facility] Last Admin: 07/17/18 12:40 Dose: 667 mg Diltiazem HCl (Cardizem Cd) 240 mg PO DAILY [facility] Last Admin: 07/17/18 09:43 Dose: 240 mg Docusate Sodium (Colace) 100 mg PO BID [facility] Last Admin: 07/17/18 09:43 Dose: 100 mg Famotidine (Pepcid) 20 mg PO DAILY [facility] Last Admin: 07/17/18 09:42 Dose: 20 mg Fluticasone/Vilanterol (Breo Ellipta 200-25 Mcg Inh) 1 puff INH RQD [facility] Last Admin: 07/16/18 07:20 Dose: 1 puff Glipizide (Glucotrol) 10 mg PO ACBD [facility] Last Admin: 07/17/18 09:44 Dose: Not Given Home Med (Patient's Own Drops) 1 drop OD DAILY [facility] Last Admin: 07/17/18 09:43 Dose: 1 drop Micafungin Sodium 100 mg/ (Sodium Chloride) 100 mls @ 100 mls/hr IV Q24H [facility]; Protocol Last Admin: 07/16/18 15:17 Dose: 100 mls/hr Insulin Aspart (Novolog) 10 unit SC ONCE MARIBETH Insulin Aspart (Novolog) 0 unit SC ACHS [facility]; Protocol Last Admin: 07/17/18 12:41 Dose: 2 units Insulin Detemir (Levemir) 12 unit SC Q12H [facility] Last Admin: 07/17/18 12:41 Dose: 12 units Levothyroxine Sodium (Synthroid) 150 mcg PO DAILY@0630 [facility] Last Admin: 07/17/18 06:06 Dose: 150 mcg Polyethylene Glycol (Miralax) 17 gm PO DAILY PRN PRN Reason: Constipation Last Admin: 07/14/18 08:29 Dose: 17 gm Rosuvastatin Calcium (Crestor) 5 mg PO HS [facility] Last Admin: 07/16/18 21:13 Dose: 5 mg Tiotropium [place] (Spiriva) 18 mcg INH RQ24 [facility] Last Admin: 07/16/18 07:20 Dose: 18 mcg - Labs Labs: 07/17/18 05:47 07/17/18 05:47 - Head Exam Head Exam: NORMAL INSPECTION - Eye Exam Eye Exam: Normal appearance - ENT Exam ENT Exam: Mucous Membranes Moist - Respiratory Exam Respiratory Exam: Prolonged Expiratory Phase - Cardiovascular Exam Cardiovascular Exam: REGULAR RHYTHM, +S1, +S2 - GI/Abdominal Exam GI & Abdominal Exam: Soft, Normal Bowel Sounds - Extremities Exam Extremities Exam: Normal Inspection - Neurological Exam Neurological Exam: Alert, Oriented x3 Assessment and Plan (1) CHF exacerbation Status: Acute (2) Dyspnea Status: Acute (3) Atrial fibrillation with RVR Status: Resolved (4) COPD (chronic obstructive pulmonary disease) Status: Acute (5) ESRD (end stage renal disease) Status: Acute - Assessment and Plan (Free Text) Plan: Breo Ellipta Ipratromium as needed HD as per schedule Keep patient negative balance DVT/GI prophalaxis
--- NOTE | 2018-07-17 16:49 | CP.PCM.PN ---
Subjective - Date & Time of Evaluation Date of Evaluation: 07/17/18 Time of Evaluation: 08:00 - Subjective Subjective: doing better iv rx in progress Objective - Vital Signs/Intake and Output Vital Signs (last 24 hours): Temp Pulse Resp BP Pulse Ox 99.6 F 76 25 H 109/40 L 99 07/17/18 16:00 07/17/18 16:00 07/17/18 16:00 07/17/18 15:58 07/17/18 16:00 Intake and Output: 07/17/18 07/17/18 06:59 18:59 Intake Total 350 485 Output Total 0 2900 Balance 350 -2415 - Medications Medications: Current Medications Acetaminophen (Tylenol 325mg Tab) 650 mg PO Q6 PRN PRN Reason: Fever >100.4 F Last Admin: 06/26/18 18:19 Dose: 650 mg Amiodarone HCl (Cordarone) 200 mg PO TID [facility] Last Admin: 07/17/18 14:05 Dose: 200 mg Apixaban (Eliquis) 2.5 mg PO Q48H [facility] Last Admin: 07/17/18 14:05 Dose: 2.5 mg Budesonide (Pulmicort Respules) 0.25 mg IH RBID [facility] Last Admin: 07/17/18 07:05 Dose: 0.25 mg Calcium Acetate (Phoslo) 667 mg PO TIDCC [facility] Last Admin: 07/17/18 12:40 Dose: 667 mg Diltiazem HCl (Cardizem Cd) 240 mg PO DAILY [facility] Last Admin: 07/17/18 09:43 Dose: 240 mg Docusate Sodium (Colace) 100 mg PO BID [facility] Last Admin: 07/17/18 09:43 Dose: 100 mg Famotidine (Pepcid) 20 mg PO DAILY [facility] Last Admin: 07/17/18 09:42 Dose: 20 mg Fluticasone/Vilanterol (Breo Ellipta 200-25 Mcg Inh) 1 puff INH RQD [facility] Last Admin: 07/17/18 07:05 Dose: 1 puff Glipizide (Glucotrol) 10 mg PO ACBD [facility] Last Admin: 07/17/18 09:44 Dose: Not Given Home Med (Patient's Own Drops) 1 drop OD DAILY [facility] Last Admin: 07/17/18 09:43 Dose: 1 drop Micafungin Sodium 100 mg/ (Sodium Chloride) 100 mls @ 100 mls/hr IV Q24H [facility]; Protocol Last Admin: 07/16/18 15:17 Dose: 100 mls/hr Insulin Aspart (Novolog) 10 unit SC ONCE [facility]IBETH Insulin Aspart (Novolog) 0 unit SC ACHS [facility]; Protocol Last Admin: 07/17/18 12:41 Dose: 2 units Insulin Detemir (Levemir) 12 unit SC Q12H [facility] Last Admin: 07/17/18 12:41 Dose: 12 units Levothyroxine Sodium (Synthroid) 150 mcg PO DAILY@0630 [facility] Last Admin: 07/17/18 06:06 Dose: 150 mcg Polyethylene Glycol (Miralax) 17 gm PO DAILY PRN PRN Reason: Constipation Last Admin: 07/14/18 08:29 Dose: 17 gm Rosuvastatin Calcium (Crestor) 5 mg PO HS [facility] Last Admin: 07/16/18 21:13 Dose: 5 mg Tiotropium [place] (Spiriva) 18 mcg INH RQ24 [facility] Last Admin: 07/17/18 07:05 Dose: 18 mcg - Labs Labs: 07/17/18 05:47 07/17/18 05:47 - Constitutional Appears: Non-toxic, Chronically Ill - Head Exam Head Exam: absent: NORMOCEPHALIC - Eye Exam Eye Exam: Scleral icterus - ENT Exam ENT Exam: Mucous Membranes Dry - Neck Exam Neck Exam: absent: Lymphadenopathy - Respiratory Exam Respiratory Exam: Decreased Breath Sounds - Cardiovascular Exam Cardiovascular Exam: REGULAR RHYTHM - GI/Abdominal Exam GI & Abdominal Exam: Distended, Soft. absent: Tenderness - Rectal Exam Rectal Exam: Deferred - Exam Exam: NORMAL INSPECTION - Extremities Exam Extremities Exam: absent: Pedal Edema - Back Exam Back Exam: absent: CVA tenderness (L), CVA tenderness (R) - Neurological Exam Neurological Exam: Alert, Awake, CN II-XII Intact, Oriented x3. absent: Normal Gait - Psychiatric Exam Psychiatric exam: Depressed Assessment and Plan (1) CHF exacerbation Status: Acute (2) Chronic a-fib Status: Acute (3) Dyspnea Status: Acute (4) ESRD (end stage renal disease) on dialysis Status: Acute (5) Uncontrolled diabetes mellitus Status: Acute - Assessment and Plan (Free Text) Assessment: cont antifungal rx
[2018-07-17] MEDS: Micafungin 100 MG in Sodium Chloride 0.9% 100 ML IV SCH (16:51)
--- NOTE | 2018-07-17 19:19 | CP.PCM.PN ---
Subjective - Date & Time of Evaluation Date of Evaluation: 07/17/18 Time of Evaluation: 11:30 - Subjective Subjective: lying in bed comofortbaly no chest pain or sob no nausea or no vomitting no fever encourage po feeding Objective - Vital Signs/Intake and Output Vital Signs (last 24 hours): Temp Pulse Resp BP Pulse Ox 99.1 F 80 17 109/35 L 97 07/17/18 17:08 07/17/18 17:09 07/17/18 17:09 07/17/18 17:09 07/17/18 17:09 Intake and Output: 07/17/18 07/18/18 18:59 06:59 Intake Total 1045 Output Total 2900 Balance -1855 - Medications Medications: Current Medications Acetaminophen (Tylenol 325mg Tab) 650 mg PO Q6 PRN PRN Reason: Fever >100.4 F Last Admin: 06/26/18 18:19 Dose: 650 mg Amiodarone HCl (Cordarone) 200 mg PO TID [facility] Last Admin: 07/17/18 17:10 Dose: 200 mg Apixaban (Eliquis) 2.5 mg PO Q48H [facility] Last Admin: 07/17/18 14:05 Dose: 2.5 mg Budesonide (Pulmicort Respules) 0.25 mg IH RBID [facility] Last Admin: 07/17/18 07:05 Dose: 0.25 mg Calcium Acetate (Phoslo) 667 mg PO TIDCC [facility] Last Admin: 07/17/18 16:51 Dose: 667 mg Diltiazem HCl (Cardizem Cd) 240 mg PO DAILY [facility] Last Admin: 07/17/18 09:43 Dose: 240 mg Docusate Sodium (Colace) 100 mg PO BID [facility] Last Admin: 07/17/18 09:43 Dose: 100 mg Famotidine (Pepcid) 20 mg PO DAILY [facility] Last Admin: 07/17/18 09:42 Dose: 20 mg Fluticasone/Vilanterol (Breo Ellipta 200-25 Mcg Inh) 1 puff INH RQD [facility] Last Admin: 07/17/18 07:05 Dose: 1 puff Glipizide (Glucotrol) 10 mg PO ACBD [facility] Last Admin: 07/17/18 16:52 Dose: 10 mg Home Med (Patient's Own Drops) 1 drop OD DAILY [facility] Last Admin: 07/17/18 09:43 Dose: 1 drop Micafungin Sodium 100 mg/ (Sodium Chloride) 100 mls @ 100 mls/hr IV Q24H [facility]; Protocol Last Admin: 07/17/18 16:51 Dose: 100 mls/hr Insulin Aspart (Novolog) 10 unit SC ONCE [facility]IBETH Insulin Aspart (Novolog) 0 unit SC ACHS [facility]; Protocol Last Admin: 07/17/18 16:50 Dose: 6 units Insulin Detemir (Levemir) 12 unit SC Q12H [facility] Last Admin: 07/17/18 12:41 Dose: 12 units Levothyroxine Sodium (Synthroid) 150 mcg PO DAILY@0630 [facility] Last Admin: 07/17/18 06:06 Dose: 150 mcg Polyethylene Glycol (Miralax) 17 gm PO DAILY PRN PRN Reason: Constipation Last Admin: 07/14/18 08:29 Dose: 17 gm Rosuvastatin Calcium (Crestor) 5 mg PO HS [facility] Last Admin: 07/16/18 21:13 Dose: 5 mg Tiotropium [place] (Spiriva) 18 mcg INH RQ24 [facility] Last Admin: 07/17/18 07:05 Dose: 18 mcg - Labs Labs: 07/17/18 05:47 07/17/18 05:47 - Constitutional Appears: Well - Head Exam Head Exam: ATRAUMATIC, NORMAL INSPECTION, NORMOCEPHALIC - Eye Exam Eye Exam: EOMI, Normal appearance, PERRL Pupil Exam: NORMAL ACCOMODATION, PERRL - ENT Exam ENT Exam: Mucous Membranes Moist, Normal Exam - Neck Exam Neck Exam: Full ROM, Normal Inspection. absent: Lymphadenopathy - Respiratory Exam Respiratory Exam: Decreased Breath Sounds - Cardiovascular Exam Cardiovascular Exam: REGULAR RHYTHM, +S1, +S2 - GI/Abdominal Exam GI & Abdominal Exam: Soft, Diminished Bowel Sounds - Rectal Exam Rectal Exam: Deferred Assessment and Plan (1) CHF exacerbation Status: Acute (2) Dyspnea Status: Acute (3) ESRD (end stage renal disease) on dialysis Status: Acute (4) Uncontrolled diabetes mellitus Status: Acute (5) MARIA EUGENIA (acute kidney injury) Status: Acute (6) Abdominal pain Status: Acute (7) Acute bronchitis Status: Acute (8) Acute kidney injury Status: Acute (9) Acute kidney injury superimposed on chronic kidney disease Status: Acute (10) Acute respiratory failure Status: Acute (11) Anemia Status: Acute (12) Anemia of chronic disease Status: Acute (13) Atrial fibrillation with controlled ventricular response Status: Acute (14) Back pain of thoracolumbar region Status: Acute (15) Bronchitis Status: Acute (16) Bronchitis Status: Acute (17) CHF (congestive heart failure) Status: Acute (18) CHF (congestive heart failure) Status: Acute (19) CKD (chronic kidney disease) stage 3, GFR 30-59 ml/min Status: Acute (20) COPD (chronic obstructive pulmonary disease) Status: Acute (21) COPD exacerbation Status: Acute (22) COPD exacerbation Status: Acute (23) Chest pain Status: Acute (24) ESR raised Status: Acute (25) ESRD (end stage renal disease) Status: Acute (26) Fluid overload Status: Acute (27) Fluid overload, unspecified Status: Acute (28) Gastritis Status: Acute (29) Hepatitis Status: Acute (30) History of asthma Status: Acute (31) History of atrial fibrillation Status: Acute (32) History of back pain Status: Acute (33) History of gastroesophageal reflux (GERD) Status: Acute (34) Hypercalcemia Status: Acute (35) Hyperlipemia Status: Acute (36) Influenza Status: Acute (37) Leucocytosis Status: Acute (38) Lower extremity pain Status: Acute (39) Multiple myeloma Status: Acute (40) Multiple myeloma Status: Acute (41) Myeloma Status: Acute (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 (43) Occult gastrointestinal hemorrhage Status: Acute (44) Paroxysmal A-fib Status: Acute (45) Pneumonia Status: Acute (46) Prophylactic measure Status: Acute (47) Pulmonary hypertension Status: Acute (48) Pulmonary hypertension Status: Acute (49) Renal failure Status: Acute (50) Respiratory tract infection Status: Acute (51) Streptococcus pneumoniae Status: Acute (52) Symptomatic anemia Status: Acute (53) Vertigo Status: Acute (54) Worsening renal function Status: Acute (55) Anemia Status: Chronic (56) Asthma Status: Chronic (57) Atrial fibrillation Status: Chronic (58) Chronic diastolic (congestive) heart failure Status: Chronic (59) Diabetes Status: Chronic (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
[2018-07-17] MEDS: guaiFENesin 100 mg/5 ml Syrup UD PO PRN (19:54)
[2018-07-18] MEDS ORDERED: Glucagon Recombinant 1 mg Inj IM PRN (03:25)
[2018-07-18] MEDS ORDERED: Dextrose 50% SYRINGE Inj (50 ml) IV PRN (03:25)
[2018-07-18 06:33] LABS: BASO % 0.2 % (0.0-2.0); EOS % 0.1 % (0.0-4.0); HEMOGLOBIN 9.7 g/dL (11.0-16.0); LYMPH # 0.3 K/uL (1.0-4.3); LYMPH % 3.8 % (20.0-40.0); MEAN CELL VOLUME 86.4 fL (81.0-99.0); MEAN CORPUSCULAR HEMOGLOBIN 28.8 pg (27.0-31.0); MEAN CORPUSCULAR HGB CONC 33.3 g/dL (33.0-37.0); MEAN PLATELET VOLUME 10.9 fL (7.2-11.7); MONO # 0.3 K/uL (0.0-0.8); MONO % 3.7 % (0.0-10.0); NEUT # 7.9 K/uL (1.8-7.0); NEUT % 92.2 % (50.0-75.0); PLATELET COUNT 68 K/uL (130-400); RBC 3.36 Mil/uL (3.80-5.20); RED CELL DISTRIBUTION WIDTH 15.9 % (11.5-14.5); WHITE BLOOD COUNT 8.5 K/uL (4.8-10.8)
[2018-07-18 06:52] LABS: ALB/GLOB RATIO 0.9 (1.0-2.1); ALBUMIN 2.4 g/dL (3.5-5.0); CALCIUM 7.5 mg/dl (8.6-10.4)
[2018-07-18] MEDS: Budesonide 0.25 mg/2 ml Inhal Susp UD IH SCH ×2 (07:52→19:32)
[2018-07-18] MEDS: Tiotropium 18 mcg Cap For Inhalation INH SCH (07:52)
[2018-07-18] MEDS: Fluticasone-Vilanterol 200/25mcg Diskus INH SCH (07:52)
[2018-07-18] MEDS: (Novolog) Insulin Aspart, Recombinant 100 u/ml 10 ml vial SC SCH ×4 (08:44→22:00)
[2018-07-18 08:58] LABS: ANISOCYTOSIS SLIGHT; HYPOCHROMIC SLIGHT; LYMPHOCYTE 1 % (20-40); MONOCYTE 1 % (0-10); NEUTROPHIL 98 % (50-75); PLATELET ESTIMATE DECREASED (NORMAL); TOTAL CELLS COUNTED 100
--- NOTE | 2018-07-18 09:17 | CP.PCM.PN ---
Subjective - Date & Time of Evaluation Date of Evaluation: 07/18/18 Time of Evaluation: 09:13 - Subjective Subjective: stable dialysis 4/3 still in a flutter; VR-100-110 feels better Hg improved post transfusion leukocytosis better less dyspnea, good appetite lytes acceptable Objective - Vital Signs/Intake and Output Vital Signs (last 24 hours): Temp Pulse Resp BP Pulse Ox 98.3 F 79 19 98/41 L 100 07/18/18 06:00 07/18/18 08:10 07/18/18 08:10 07/18/18 08:10 07/18/18 08:10 Intake and Output: 07/18/18 07/18/18 06:59 18:59 Intake Total 360 Balance 360 - Medications Medications: Current Medications Acetaminophen (Tylenol 325mg Tab) 650 mg PO Q6 PRN PRN Reason: Fever >100.4 F Last Admin: 06/26/18 18:19 Dose: 650 mg Amiodarone HCl (Cordarone) 200 mg PO TID [facility] Last Admin: 07/17/18 17:10 Dose: 200 mg Apixaban (Eliquis) 2.5 mg PO Q48H [facility] Last Admin: 07/17/18 14:05 Dose: 2.5 mg Budesonide (Pulmicort Respules) 0.25 mg IH RBID [facility] Last Admin: 07/18/18 07:52 Dose: 0.25 mg Calcium Acetate (Phoslo) 667 mg PO TIDCC [facility] Last Admin: 07/18/18 08:45 Dose: 667 mg Dextrose (Dextrose 50% Inj) 0 ml IV STAT PRN; Protocol PRN Reason: Hypoglycemia Protocol Last Admin: 07/18/18 03:39 Dose: 50 ml Dextrose (Glutose 15) 0 gm PO ONCE PRN; Protocol PRN Reason: Hypoglycemia Protocol Diltiazem HCl (Cardizem Cd) 240 mg PO DAILY [facility] Last Admin: 07/17/18 09:43 Dose: 240 mg Docusate Sodium (Colace) 100 mg PO BID [facility] Last Admin: 07/17/18 09:43 Dose: 100 mg Famotidine (Pepcid) 20 mg PO DAILY [facility] Last Admin: 07/17/18 09:42 Dose: 20 mg Fluticasone/Vilanterol (Breo Ellipta 200-25 Mcg Inh) 1 puff INH RQD [facility] Last Admin: 07/18/18 07:52 Dose: 1 puff Glipizide (Glucotrol) 10 mg PO ACBD [facility] Last Admin: 07/18/18 08:45 Dose: 10 mg Glucagon (Glucagen Diagnostic Kit) 0 mg IM STAT PRN; Protocol PRN Reason: Hypoglycemia Protocol Guaifenesin (Robitussin) 100 mg PO Q6H PRN PRN Reason: Cough Last Admin: 07/17/18 19:54 Dose: 100 mg Home Med (Patient's Own Drops) 1 drop OD DAILY [facility] Last Admin: 07/17/18 09:43 Dose: 1 drop Micafungin Sodium 100 mg/ (Sodium Chloride) 100 mls @ 100 mls/hr IV Q24H [facility]; Protocol Last Admin: 07/17/18 16:51 Dose: 100 mls/hr Dextrose (Dextrose 5% In Water 1000 Ml) 1,000 mls @ 0 mls/hr IV .Q0M PRN; Protocol PRN Reason: Hypoglycemia Protocol Insulin Aspart (Novolog) 10 unit SC ONCE [facility] Insulin Aspart (Novolog) 0 unit SC ACHS [facility]; Protocol Last Admin: 07/18/18 08:44 Dose: Not Given Insulin Detemir (Levemir) 12 unit SC Q12H [facility] Last Admin: 07/17/18 22:45 Dose: Not Given Levothyroxine Sodium (Synthroid) 150 mcg PO DAILY@0630 [facility] Last Admin: 07/17/18 06:06 Dose: 150 mcg Polyethylene Glycol (Miralax) 17 gm PO DAILY PRN PRN Reason: Constipation Last Admin: 07/14/18 08:29 Dose: 17 gm Rosuvastatin Calcium (Crestor) 5 mg PO HS [facility] Last Admin: 07/17/18 21:49 Dose: 5 mg Tiotropium [place] (Spiriva) 18 mcg INH RQ24 [facility] Last Admin: 07/18/18 07:52 Dose: 18 mcg - Labs Labs: 07/18/18 06:20 07/18/18 06:20 - Constitutional Appears: No Acute Distress, Chronically Ill - Head Exam Head Exam: ATRAUMATIC, NORMAL INSPECTION - Eye Exam Eye Exam: EOMI, Normal appearance - Neck Exam Neck Exam: Normal Inspection. absent: Tenderness - Respiratory Exam Respiratory Exam: Clear to Ausculation Bilateral, NORMAL BREATHING PATTERN - Cardiovascular Exam Cardiovascular Exam: REGULAR RHYTHM, +S1 - GI/Abdominal Exam GI & Abdominal Exam: Soft. absent: Tenderness - Extremities Exam Extremities Exam: Normal Inspection. absent: Tenderness - Neurological Exam Neurological Exam: Awake, CN II-XII Intact - Skin Skin Exam: Dry, Warm Assessment and Plan (1) Atrial fibrillation with RVR Status: Resolved (2) CHF exacerbation Status: Acute (3) COPD exacerbation Status: Acute (4) Multiple myeloma Status: Acute - Assessment and Plan (Free Text) Plan: Cardiac meds - as per cardio- monitor need for cardioversion dialysis in AM, MWF same meds no overt bleeding- same eliquis dose
[2018-07-18] MEDS: diltiaZEM 240 mg/24 Hours CD Cap PO SCH (10:18)
[2018-07-18] MEDS: BROMFENAC 0.07% OD SCH (10:19)
[2018-07-18] MEDS: Insulin Detemir 100 units/ml Vial (Levemir) SC SCH ×2 (11:53→22:55)
[2018-07-18] MEDS: Micafungin 100 MG in Sodium Chloride 0.9% 100 ML IV SCH (16:34)
[2018-07-18] MEDS ORDERED: Petrolatum Oint Foilpak (5 gm) TOP PRN (17:04)
--- NOTE | 2018-07-18 18:32 | CP.PCM.PN ---
Subjective - Date & Time of Evaluation Date of Evaluation: 07/18/18 Time of Evaluation: 12:30 - Subjective Subjective: patient examined at bedside no nausea, no vomiting, no fever, no diarrhea, no shortness of breath pt is out of bed to chair pt feels still not well? brother bedside although pt ate better today than most of days as per brother Objective - Vital Signs/Intake and Output Vital Signs (last 24 hours): Temp Pulse Resp BP Pulse Ox 98.1 F 75 26 H 110/43 L 96 07/18/18 16:00 07/18/18 17:22 07/18/18 17:22 07/18/18 17:22 07/18/18 17:22 Intake and Output: 07/18/18 07/18/18 06:59 18:59 Intake Total 360 700 Balance 360 700 - Medications Medications: Current Medications Acetaminophen (Tylenol 325mg Tab) 650 mg PO Q6 PRN PRN Reason: Fever >100.4 F Last Admin: 06/26/18 18:19 Dose: 650 mg Amiodarone HCl (Cordarone) 200 mg PO TID [facility] Last Admin: 07/18/18 17:52 Dose: 200 mg Apixaban (Eliquis) 2.5 mg PO Q48H [facility] Last Admin: 07/17/18 14:05 Dose: 2.5 mg Budesonide (Pulmicort Respules) 0.25 mg IH RBID [facility] Last Admin: 07/18/18 07:52 Dose: 0.25 mg Calcium Acetate (Phoslo) 667 mg PO TIDCC [facility] Last Admin: 07/18/18 16:39 Dose: 667 mg Dextrose (Dextrose 50% Inj) 0 ml IV STAT PRN; Protocol PRN Reason: Hypoglycemia Protocol Last Admin: 07/18/18 03:39 Dose: 50 ml Dextrose (Glutose 15) 0 gm PO ONCE PRN; Protocol PRN Reason: Hypoglycemia Protocol Diltiazem HCl (Cardizem Cd) 240 mg PO DAILY [facility] Last Admin: 07/18/18 10:18 Dose: Not Given Docusate Sodium (Colace) 100 mg PO BID [facility] Last Admin: 07/18/18 17:52 Dose: 100 mg Emollient Ointment (Vaseline Oint) 5 gm TOP Q4H PRN PRN Reason: Dry skin Last Admin: 07/18/18 17:52 Dose: 5 gm Famotidine (Pepcid) 20 mg PO DAILY [facility] Last Admin: 07/18/18 10:20 Dose: 20 mg Fluticasone/Vilanterol (Breo Ellipta 200-25 Mcg Inh) 1 puff INH RQD [facility] Last Admin: 07/18/18 07:52 Dose: 1 puff Glipizide (Glucotrol) 10 mg PO ACBD [facility] Last Admin: 07/18/18 16:51 Dose: 10 mg Glucagon (Glucagen Diagnostic Kit) 0 mg IM STAT PRN; Protocol PRN Reason: Hypoglycemia Protocol Guaifenesin (Robitussin) 100 mg PO Q6H PRN PRN Reason: Cough Last Admin: 07/17/18 19:54 Dose: 100 mg Home Med (Patient's Own Drops) 1 drop OD DAILY [facility] Last Admin: 07/18/18 10:19 Dose: 1 drop Micafungin Sodium 100 mg/ (Sodium Chloride) 100 mls @ 100 mls/hr IV Q24H [facility]; Protocol Last Admin: 07/18/18 16:34 Dose: 100 mls/hr Dextrose (Dextrose 5% In Water 1000 Ml) 1,000 mls @ 0 mls/hr IV .Q0M PRN; Protocol PRN Reason: Hypoglycemia Protocol Insulin Aspart (Novolog) 10 unit SC ONCE [facility] Insulin Aspart (Novolog) 0 unit SC ACHS [facility]; Protocol Last Admin: 07/18/18 16:34 Dose: 4 units Insulin Detemir (Levemir) 12 unit SC Q12H [facility] Last Admin: 07/18/18 11:53 Dose: 12 units Levothyroxine Sodium (Synthroid) 150 mcg PO DAILY@0630 [facility] Last Admin: 07/17/18 06:06 Dose: 150 mcg Polyethylene Glycol (Miralax) 17 gm PO DAILY PRN PRN Reason: Constipation Last Admin: 07/14/18 08:29 Dose: 17 gm Rosuvastatin Calcium (Crestor) 5 mg PO HS [facility] Last Admin: 07/17/18 21:49 Dose: 5 mg Tiotropium [place] (Spiriva) 18 mcg INH RQ24 [facility] Last Admin: 07/18/18 07:52 Dose: 18 mcg - Labs Labs: 07/18/18 06:20 07/18/18 06:20 - Constitutional Appears: Well - Head Exam Head Exam: ATRAUMATIC, NORMAL INSPECTION, NORMOCEPHALIC - Eye Exam Eye Exam: EOMI, Normal appearance, PERRL Pupil Exam: NORMAL ACCOMODATION, PERRL - ENT Exam ENT Exam: Mucous Membranes Moist, Normal Exam - Neck Exam Neck Exam: Full ROM, Normal Inspection. absent: Lymphadenopathy - Respiratory Exam Respiratory Exam: Decreased Breath Sounds - Cardiovascular Exam Cardiovascular Exam: REGULAR RHYTHM, +S1, +S2 - GI/Abdominal Exam GI & Abdominal Exam: Soft, Diminished Bowel Sounds - Rectal Exam Rectal Exam: Deferred - Neurological Exam Neurological Exam: Oriented x3 Assessment and Plan (1) CHF exacerbation Status: Acute (2) Dyspnea Status: Acute (3) ESRD (end stage renal disease) on dialysis Status: Acute (4) Uncontrolled diabetes mellitus Status: Acute (5) MARIA EUGENIA (acute kidney injury) Status: Acute (6) Abdominal pain Status: Acute (7) Acute bronchitis Status: Acute (8) Acute kidney injury Status: Acute (9) Acute kidney injury superimposed on chronic kidney disease Status: Acute (10) Acute respiratory failure Status: Acute (11) Anemia Status: Acute (12) Anemia of chronic disease Status: Acute (13) Atrial fibrillation with controlled ventricular response Status: Acute (14) Back pain of thoracolumbar region Status: Acute (15) Bronchitis Status: Acute (16) Bronchitis Status: Acute (17) CHF (congestive heart failure) Status: Acute (18) CHF (congestive heart failure) Status: Acute (19) CKD (chronic kidney disease) stage 3, GFR 30-59 ml/min Status: Acute (20) COPD (chronic obstructive pulmonary disease) Status: Acute (21) COPD exacerbation Status: Acute (22) COPD exacerbation Status: Acute (23) Chest pain Status: Acute (24) ESR raised Status: Acute (25) ESRD (end stage renal disease) Status: Acute (26) Fluid overload Status: Acute (27) Fluid overload, unspecified Status: Acute (28) Gastritis Status: Acute (29) Hepatitis Status: Acute (30) History of asthma Status: Acute (31) History of atrial fibrillation Status: Acute (32) History of back pain Status: Acute (33) History of gastroesophageal reflux (GERD) Status: Acute (34) Hypercalcemia Status: Acute (35) Hyperlipemia Status: Acute (36) Influenza Status: Acute (37) Leucocytosis Status: Acute (38) Lower extremity pain Status: Acute (39) Multiple myeloma Status: Acute (40) Multiple myeloma Status: Acute (41) Myeloma Status: Acute (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 (43) Occult gastrointestinal hemorrhage Status: Acute (44) Paroxysmal A-fib Status: Acute (45) Pneumonia Status: Acute (46) Prophylactic measure Status: Acute (47) Pulmonary hypertension Status: Acute (48) Pulmonary hypertension Status: Acute (49) Renal failure Status: Acute (50) Respiratory tract infection Status: Acute (51) Streptococcus pneumoniae Status: Acute (52) Symptomatic anemia Status: Acute (53) Vertigo Status: Acute (54) Worsening renal function Status: Acute (55) Anemia Status: Chronic (56) Asthma Status: Chronic (57) Atrial fibrillation Status: Chronic (58) Chronic diastolic (congestive) heart failure Status: Chronic (59) Diabetes Status: Chronic (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 breo ellipta cardizem cd colace cordarone crestor dextrose 5% in water dextrose 50% inj eliquis glucagen diagnostic kit glucotrol glutose 15 levemir micafungin sodium iv miralax novolog patients own drops pepcid phoslo pulmicort respules robitussin spiriva synthroid tylenol 325mg vaseline ointment dc planning once cleared by dr. boss wbc is much better d/w with dr. boss monitor for fever
--- NOTE | 2018-07-18 20:44 | CP.PCM.PN ---
Subjective - Date & Time of Evaluation Date of Evaluation: 07/18/18 Time of Evaluation: 20:44 - Subjective Subjective: Patient seen and examined Reports intermittent dyspnea Objective - Vital Signs/Intake and Output Vital Signs (last 24 hours): Temp Pulse Resp BP Pulse Ox 99.7 F H 87 28 H 101/41 L 93 L 07/18/18 20:00 07/18/18 20:10 07/18/18 20:10 07/18/18 20:10 07/18/18 20:10 Intake and Output: 07/18/18 07/19/18 18:59 06:59 Intake Total 700 Balance 700 - Medications Medications: Current Medications Acetaminophen (Tylenol 325mg Tab) 650 mg PO Q6 PRN PRN Reason: Fever >100.4 F Last Admin: 06/26/18 18:19 Dose: 650 mg Amiodarone HCl (Cordarone) 200 mg PO TID [facility] Last Admin: 07/18/18 17:52 Dose: 200 mg Apixaban (Eliquis) 2.5 mg PO Q48H [facility] Last Admin: 07/17/18 14:05 Dose: 2.5 mg Budesonide (Pulmicort Respules) 0.25 mg IH RBID [facility] Last Admin: 07/18/18 19:32 Dose: 0.25 mg Calcium Acetate (Phoslo) 667 mg PO TIDCC [facility] Last Admin: 07/18/18 16:39 Dose: 667 mg Dextrose (Dextrose 50% Inj) 0 ml IV STAT PRN; Protocol PRN Reason: Hypoglycemia Protocol Last Admin: 07/18/18 03:39 Dose: 50 ml Dextrose (Glutose 15) 0 gm PO ONCE PRN; Protocol PRN Reason: Hypoglycemia Protocol Diltiazem HCl (Cardizem Cd) 240 mg PO DAILY [facility] Last Admin: 07/18/18 10:18 Dose: Not Given Docusate Sodium (Colace) 100 mg PO BID [facility] Last Admin: 07/18/18 17:52 Dose: 100 mg Emollient Ointment (Vaseline Oint) 5 gm TOP Q4H PRN PRN Reason: Dry skin Last Admin: 07/18/18 17:52 Dose: 5 gm Famotidine (Pepcid) 20 mg PO DAILY [facility] Last Admin: 07/18/18 10:20 Dose: 20 mg Fluticasone/Vilanterol (Breo Ellipta 200-25 Mcg Inh) 1 puff INH RQD [facility] Last Admin: 07/18/18 07:52 Dose: 1 puff Glipizide (Glucotrol) 10 mg PO ACBD [facility] Last Admin: 07/18/18 16:51 Dose: 10 mg Glucagon (Glucagen Diagnostic Kit) 0 mg IM STAT PRN; Protocol PRN Reason: Hypoglycemia Protocol Guaifenesin (Robitussin) 100 mg PO Q6H PRN PRN Reason: Cough Last Admin: 07/17/18 19:54 Dose: 100 mg Home Med (Patient's Own Drops) 1 drop OD DAILY [facility] Last Admin: 07/18/18 10:19 Dose: 1 drop Micafungin Sodium 100 mg/ (Sodium Chloride) 100 mls @ 100 mls/hr IV Q24H [facility]; Protocol Last Admin: 07/18/18 16:34 Dose: 100 mls/hr Dextrose (Dextrose 5% In Water 1000 Ml) 1,000 mls @ 0 mls/hr IV .Q0M PRN; Protocol PRN Reason: Hypoglycemia Protocol Insulin Aspart (Novolog) 10 unit SC ONCE [facility] Insulin Aspart (Novolog) 0 unit SC ACHS [facility]; Protocol Last Admin: 07/18/18 16:34 Dose: 4 units Insulin Detemir (Levemir) 12 unit SC Q12H [facility] Last Admin: 07/18/18 11:53 Dose: 12 units Levothyroxine Sodium (Synthroid) 150 mcg PO DAILY@0630 [facility] Last Admin: 07/17/18 06:06 Dose: 150 mcg Polyethylene Glycol (Miralax) 17 gm PO DAILY PRN PRN Reason: Constipation Last Admin: 07/14/18 08:29 Dose: 17 gm Rosuvastatin Calcium (Crestor) 5 mg PO HS [facility] Last Admin: 07/17/18 21:49 Dose: 5 mg Tiotropium [place] (Spiriva) 18 mcg INH RQ24 [facility] Last Admin: 07/18/18 07:52 Dose: 18 mcg - Labs Labs: 07/18/18 06:20 07/18/18 06:20 - Head Exam Head Exam: NORMAL INSPECTION - Eye Exam Eye Exam: Normal appearance - ENT Exam ENT Exam: Mucous Membranes Moist - Respiratory Exam Respiratory Exam: Clear to Ausculation Bilateral - Cardiovascular Exam Cardiovascular Exam: REGULAR RHYTHM, +S1, +S2 - GI/Abdominal Exam GI & Abdominal Exam: Soft, Normal Bowel Sounds - Extremities Exam Extremities Exam: Normal Inspection - Neurological Exam Neurological Exam: Alert, Oriented x3 Assessment and Plan (1) CHF exacerbation Status: Acute (2) Dyspnea Status: Acute (3) Atrial fibrillation with RVR Status: Resolved (4) COPD (chronic obstructive pulmonary disease) Status: Acute (5) ESRD (end stage renal disease) Status: Acute - Assessment and Plan (Free Text) Plan: Brio Ellipta Bronchodilators as needed Oxygen supplementation Hemodialysis per renal DVT/GI prophylaxis
[2018-07-19 05:59] LABS: BASO % 0.3 % (0.0-2.0); HEMOGLOBIN 9.9 g/dL (11.0-16.0); LYMPH # 0.3 K/uL (1.0-4.3); LYMPH % 3.8 % (20.0-40.0); MEAN CORPUSCULAR HEMOGLOBIN 28.6 pg (27.0-31.0); MEAN CORPUSCULAR HGB CONC 32.9 g/dL (33.0-37.0); MEAN PLATELET VOLUME 10.8 fL (7.2-11.7); MONO # 0.4 K/uL (0.0-0.8); MONO % 4.7 % (0.0-10.0); NEUT # 7.8 K/uL (1.8-7.0); NEUT % 91.2 % (50.0-75.0); PLATELET COUNT 81 K/uL (130-400); RBC 3.46 Mil/uL (3.80-5.20); WHITE BLOOD COUNT 8.6 K/uL (4.8-10.8)
[2018-07-19 06:36] LABS: ALBUMIN 2.7 g/dL (3.5-5.0); CALCIUM 7.5 mg/dl (8.6-10.4)
[2018-07-19] MEDS: (Novolog) Insulin Aspart, Recombinant 100 u/ml 10 ml vial SC SCH ×4 (07:44→22:30)
[2018-07-19 08:28] LABS: ANISOCYTOSIS SLIGHT; HYPOCHROMIC SLIGHT; LYMPHOCYTE 5 % (20-40); MONOCYTE 5 % (0-10); NEUTROPHIL 90 % (50-75); PLATELET ESTIMATE DECREASED (NORMAL); POIKILOCYTOSIS SLIGHT; TOTAL CELLS COUNTED 100
[2018-07-19 08:29] LABS: LARGE PLATELETS PRESENT; TARGET CELLS SLIGHT
[2018-07-19] MEDS: Fluticasone-Vilanterol 200/25mcg Diskus INH SCH (08:37)
[2018-07-19] MEDS: Budesonide 0.25 mg/2 ml Inhal Susp UD IH SCH ×2 (08:37→20:14)
[2018-07-19] MEDS: Tiotropium 18 mcg Cap For Inhalation INH SCH (08:37)
[2018-07-19] MEDS: diltiaZEM 240 mg/24 Hours CD Cap PO SCH (12:28)
[2018-07-19] MEDS: Insulin Detemir 100 units/ml Vial (Levemir) SC SCH ×2 (12:29→22:30)
[2018-07-19] MEDS: BROMFENAC 0.07% OD SCH (12:30)
--- NOTE | 2018-07-19 13:36 | CP.PCM.PN ---
Subjective - Date & Time of Evaluation Date of Evaluation: 07/19/18 Time of Evaluation: 13:33 - Subjective Subjective: post dialysis now in a flutter/ afib still; now VR- 140s feels better post dialysis remains on meds for SVT no other complaint Objective - Vital Signs/Intake and Output Vital Signs (last 24 hours): Temp Pulse Resp BP Pulse Ox 98.5 F 111 H 25 H 91/58 L 95 07/19/18 12:00 07/19/18 13:00 07/19/18 13:00 07/19/18 12:25 07/19/18 13:00 Intake and Output: 07/19/18 07/19/18 06:59 18:59 Intake Total 290 360 Balance 290 360 - Medications Medications: Current Medications Acetaminophen (Tylenol 325mg Tab) 650 mg PO Q6 PRN PRN Reason: Fever >100.4 F Last Admin: 06/26/18 18:19 Dose: 650 mg Amiodarone HCl (Cordarone) 200 mg PO TID [facility] Last Admin: 07/19/18 12:32 Dose: 200 mg Apixaban (Eliquis) 2.5 mg PO Q48H [facility] Last Admin: 07/17/18 14:05 Dose: 2.5 mg Budesonide (Pulmicort Respules) 0.25 mg IH RBID [facility] Last Admin: 07/19/18 08:37 Dose: 0.25 mg Calcium Acetate (Phoslo) 667 mg PO TIDCC [facility] Last Admin: 07/19/18 12:30 Dose: 667 mg Dextrose (Dextrose 50% Inj) 0 ml IV STAT PRN; Protocol PRN Reason: Hypoglycemia Protocol Last Admin: 07/18/18 03:39 Dose: 50 ml Dextrose (Glutose 15) 0 gm PO ONCE PRN; Protocol PRN Reason: Hypoglycemia Protocol Diltiazem HCl (Cardizem Cd) 240 mg PO DAILY [facility] Last Admin: 07/19/18 12:28 Dose: 240 mg Docusate Sodium (Colace) 100 mg PO BID [facility] Last Admin: 07/19/18 12:29 Dose: 100 mg Emollient Ointment (Vaseline Oint) 5 gm TOP Q4H PRN PRN Reason: Dry skin Last Admin: 07/18/18 17:52 Dose: 5 gm Famotidine (Pepcid) 20 mg PO DAILY [facility] Last Admin: 07/19/18 12:30 Dose: 20 mg Fluticasone/Vilanterol (Breo Ellipta 200-25 Mcg Inh) 1 puff INH RQD [facility] Last Admin: 07/19/18 08:37 Dose: 1 puff Glipizide (Glucotrol) 10 mg PO ACBD [facility] Last Admin: 07/19/18 07:44 Dose: Not Given Glucagon (Glucagen Diagnostic Kit) 0 mg IM STAT PRN; Protocol PRN Reason: Hypoglycemia Protocol Guaifenesin (Robitussin) 100 mg PO Q6H PRN PRN Reason: Cough Last Admin: 07/17/18 19:54 Dose: 100 mg Home Med (Patient's Own Drops) 1 drop OD DAILY [facility] Last Admin: 07/19/18 12:30 Dose: 1 drop Micafungin Sodium 100 mg/ (Sodium Chloride) 100 mls @ 100 mls/hr IV Q24H [facility]; Protocol Last Admin: 07/18/18 16:34 Dose: 100 mls/hr Dextrose (Dextrose 5% In Water 1000 Ml) 1,000 mls @ 0 mls/hr IV .Q0M PRN; Protocol PRN Reason: Hypoglycemia Protocol Insulin Aspart (Novolog) 10 unit SC ONCE [facility] Insulin Aspart (Novolog) 0 unit SC ACHS [facility]; Protocol Last Admin: 07/19/18 12:29 Dose: Not Given Insulin Detemir (Levemir) 12 unit SC Q12H [facility] Last Admin: 07/19/18 12:29 Dose: Not Given Levothyroxine Sodium (Synthroid) 150 mcg PO DAILY@0630 [facility] Last Admin: 07/17/18 06:06 Dose: 150 mcg Polyethylene Glycol (Miralax) 17 gm PO DAILY PRN PRN Reason: Constipation Last Admin: 07/14/18 08:29 Dose: 17 gm Rosuvastatin Calcium (Crestor) 5 mg PO HS [facility] Last Admin: 07/18/18 21:01 Dose: 5 mg Tiotropium [place] (Spiriva) 18 mcg INH RQ24 [facility] Last Admin: 07/19/18 08:37 Dose: 18 mcg - Labs Labs: 07/19/18 05:52 07/19/18 05:52 - Constitutional Appears: No Acute Distress, Chronically Ill - Head Exam Head Exam: ATRAUMATIC, NORMAL INSPECTION - Eye Exam Eye Exam: EOMI, Normal appearance - Neck Exam Neck Exam: Normal Inspection. absent: Tenderness - Respiratory Exam Respiratory Exam: Clear to Ausculation Bilateral, NORMAL BREATHING PATTERN - Cardiovascular Exam Cardiovascular Exam: Tachycardia, Irregular Rhythm - GI/Abdominal Exam GI & Abdominal Exam: Soft. absent: Tenderness - Extremities Exam Extremities Exam: Normal Inspection. absent: Tenderness - Neurological Exam Neurological Exam: Awake, CN II-XII Intact - Skin Skin Exam: Dry, Warm Assessment and Plan (1) Atrial fibrillation with RVR Status: Resolved (2) CHF exacerbation Status: Acute (3) COPD exacerbation Status: Acute (4) Multiple myeloma Status: Acute - Assessment and Plan (Free Text) Plan: decrease UF goal at dialysis rx a flutter/fib follow up labs
--- NOTE | 2018-07-19 15:02 | CP.PCM.PN ---
Subjective - Date & Time of Evaluation Date of Evaluation: 07/19/18 Time of Evaluation: 15:02 - Subjective Subjective: Patient seen and examined No events overnight Remains in A. fib Objective - Vital Signs/Intake and Output Vital Signs (last 24 hours): Temp Pulse Resp BP Pulse Ox 98.5 F 111 H 25 H 91/58 L 95 07/19/18 12:00 07/19/18 13:00 07/19/18 13:00 07/19/18 12:25 07/19/18 13:00 Intake and Output: 07/19/18 07/19/18 06:59 18:59 Intake Total 290 360 Balance 290 360 - Medications Medications: Current Medications Acetaminophen (Tylenol 325mg Tab) 650 mg PO Q6 PRN PRN Reason: Fever >100.4 F Last Admin: 06/26/18 18:19 Dose: 650 mg Amiodarone HCl (Cordarone) 200 mg PO TID [facility] Last Admin: 07/19/18 12:32 Dose: 200 mg Apixaban (Eliquis) 2.5 mg PO Q48H [facility] Last Admin: 07/17/18 14:05 Dose: 2.5 mg Budesonide (Pulmicort Respules) 0.25 mg IH RBID [facility] Last Admin: 07/19/18 08:37 Dose: 0.25 mg Calcium Acetate (Phoslo) 667 mg PO TIDCC [facility] Last Admin: 07/19/18 12:30 Dose: 667 mg Dextrose (Dextrose 50% Inj) 0 ml IV STAT PRN; Protocol PRN Reason: Hypoglycemia Protocol Last Admin: 07/18/18 03:39 Dose: 50 ml Dextrose (Glutose 15) 0 gm PO ONCE PRN; Protocol PRN Reason: Hypoglycemia Protocol Diltiazem HCl (Cardizem Cd) 240 mg PO DAILY [facility] Last Admin: 07/19/18 12:28 Dose: 240 mg Docusate Sodium (Colace) 100 mg PO BID [facility] Last Admin: 07/19/18 12:29 Dose: 100 mg Emollient Ointment (Vaseline Oint) 5 gm TOP Q4H PRN PRN Reason: Dry skin Last Admin: 07/18/18 17:52 Dose: 5 gm Famotidine (Pepcid) 20 mg PO DAILY [facility] Last Admin: 07/19/18 12:30 Dose: 20 mg Fluticasone/Vilanterol (Breo Ellipta 200-25 Mcg Inh) 1 puff INH RQD [facility] Last Admin: 07/19/18 08:37 Dose: 1 puff Glipizide (Glucotrol) 10 mg PO ACBD [facility] Last Admin: 07/19/18 07:44 Dose: Not Given Glucagon (Glucagen Diagnostic Kit) 0 mg IM STAT PRN; Protocol PRN Reason: Hypoglycemia Protocol Guaifenesin (Robitussin) 100 mg PO Q6H PRN PRN Reason: Cough Last Admin: 07/17/18 19:54 Dose: 100 mg Home Med (Patient's Own Drops) 1 drop OD DAILY [facility] Last Admin: 07/19/18 12:30 Dose: 1 drop Micafungin Sodium 100 mg/ (Sodium Chloride) 100 mls @ 100 mls/hr IV Q24H [facility]; Protocol Last Admin: 07/18/18 16:34 Dose: 100 mls/hr Dextrose (Dextrose 5% In Water 1000 Ml) 1,000 mls @ 0 mls/hr IV .Q0M PRN; Protocol PRN Reason: Hypoglycemia Protocol Insulin Aspart (Novolog) 10 unit SC ONCE [facility] Insulin Aspart (Novolog) 0 unit SC ACHS [facility]; Protocol Last Admin: 07/19/18 12:29 Dose: Not Given Insulin Detemir (Levemir) 12 unit SC Q12H [facility] Last Admin: 07/19/18 12:29 Dose: Not Given Levothyroxine Sodium (Synthroid) 150 mcg PO DAILY@0630 [facility] Last Admin: 07/17/18 06:06 Dose: 150 mcg Polyethylene Glycol (Miralax) 17 gm PO DAILY PRN PRN Reason: Constipation Last Admin: 07/14/18 08:29 Dose: 17 gm Rosuvastatin Calcium (Crestor) 5 mg PO HS [facility] Last Admin: 07/18/18 21:01 Dose: 5 mg Tiotropium [place] (Spiriva) 18 mcg INH RQ24 [facility] Last Admin: 07/19/18 08:37 Dose: 18 mcg - Labs Labs: 07/19/18 05:52 07/19/18 05:52 - Head Exam Head Exam: NORMAL INSPECTION - Eye Exam Eye Exam: Normal appearance - ENT Exam ENT Exam: Mucous Membranes Moist - Respiratory Exam Respiratory Exam: Clear to Ausculation Bilateral - Cardiovascular Exam Cardiovascular Exam: REGULAR RHYTHM, +S1, +S2 - GI/Abdominal Exam GI & Abdominal Exam: Soft, Normal Bowel Sounds - Extremities Exam Extremities Exam: Normal Inspection - Neurological Exam Neurological Exam: Alert, Oriented x3 - Psychiatric Exam Psychiatric exam: Normal Affect, Normal Mood Assessment and Plan (1) CHF exacerbation Status: Acute (2) Dyspnea Status: Acute (3) Atrial fibrillation with RVR Status: Resolved (4) COPD (chronic obstructive pulmonary disease) Status: Acute (5) ESRD (end stage renal disease) Status: Acute - Assessment and Plan (Free Text) Plan: Breo Ellipta Ipratromium if pt needs bronchodilators HD as per schedule DVT/GI prophalaxis
[2018-07-19] MEDS: Micafungin 100 MG in Sodium Chloride 0.9% 100 ML IV SCH (15:11)
--- NOTE | 2018-07-19 16:01 | CP.PCM.PN ---
Subjective - Date & Time of Evaluation Date of Evaluation: 07/19/18 Time of Evaluation: 09:00 - Subjective Subjective: afeb in nad still SOB wbc slowly coming down Objective - Vital Signs/Intake and Output Vital Signs (last 24 hours): Temp Pulse Resp BP Pulse Ox 98.5 F 111 H 25 H 91/58 L 95 07/19/18 12:00 07/19/18 13:00 07/19/18 13:00 07/19/18 12:25 07/19/18 13:00 Intake and Output: 07/19/18 07/19/18 06:59 18:59 Intake Total 290 360 Balance 290 360 - Medications Medications: Current Medications Acetaminophen (Tylenol 325mg Tab) 650 mg PO Q6 PRN PRN Reason: Fever >100.4 F Last Admin: 06/26/18 18:19 Dose: 650 mg Amiodarone HCl (Cordarone) 200 mg PO TID [facility] Last Admin: 07/19/18 15:11 Dose: Not Given Apixaban (Eliquis) 2.5 mg PO Q48H [facility] Last Admin: 07/19/18 15:11 Dose: 2.5 mg Budesonide (Pulmicort Respules) 0.25 mg IH RBID [facility] Last Admin: 07/19/18 08:37 Dose: 0.25 mg Calcium Acetate (Phoslo) 667 mg PO TIDCC [facility] Last Admin: 07/19/18 12:30 Dose: 667 mg Dextrose (Dextrose 50% Inj) 0 ml IV STAT PRN; Protocol PRN Reason: Hypoglycemia Protocol Last Admin: 07/18/18 03:39 Dose: 50 ml Dextrose (Glutose 15) 0 gm PO ONCE PRN; Protocol PRN Reason: Hypoglycemia Protocol Diltiazem HCl (Cardizem Cd) 240 mg PO DAILY [facility] Last Admin: 07/19/18 12:28 Dose: 240 mg Docusate Sodium (Colace) 100 mg PO BID [facility] Last Admin: 07/19/18 12:29 Dose: 100 mg Emollient Ointment (Vaseline Oint) 5 gm TOP Q4H PRN PRN Reason: Dry skin Last Admin: 07/18/18 17:52 Dose: 5 gm Famotidine (Pepcid) 20 mg PO DAILY [facility] Last Admin: 07/19/18 12:30 Dose: 20 mg Fluticasone/Vilanterol (Breo Ellipta 200-25 Mcg Inh) 1 puff INH RQD [facility] Last Admin: 07/19/18 08:37 Dose: 1 puff Glipizide (Glucotrol) 10 mg PO ACBD [facility] Last Admin: 07/19/18 07:44 Dose: Not Given Glucagon (Glucagen Diagnostic Kit) 0 mg IM STAT PRN; Protocol PRN Reason: Hypoglycemia Protocol Guaifenesin (Robitussin) 100 mg PO Q6H PRN PRN Reason: Cough Last Admin: 07/17/18 19:54 Dose: 100 mg Home Med (Patient's Own Drops) 1 drop OD DAILY [facility] Last Admin: 07/19/18 12:30 Dose: 1 drop Micafungin Sodium 100 mg/ (Sodium Chloride) 100 mls @ 100 mls/hr IV Q24H [facility]; Protocol Last Admin: 07/19/18 15:11 Dose: 100 mls/hr Dextrose (Dextrose 5% In Water 1000 Ml) 1,000 mls @ 0 mls/hr IV .Q0M PRN; Prot ocol PRN Reason: Hypoglycemia Protocol Insulin Aspart (Novolog) 10 unit SC ONCE [facility] Insulin Aspart (Novolog) 0 unit SC ACHS [facility]; Protocol Last Admin: 07/19/18 12:29 Dose: Not Given Insulin Detemir (Levemir) 12 unit SC Q12H [facility] Last Admin: 07/19/18 12:29 Dose: Not Given Levothyroxine Sodium (Synthroid) 150 mcg PO DAILY@0630 [facility] Last Admin: 07/17/18 06:06 Dose: 150 mcg Polyethylene Glycol (Miralax) 17 gm PO DAILY PRN PRN Reason: Constipation Last Admin: 07/14/18 08:29 Dose: 17 gm Rosuvastatin Calcium (Crestor) 5 mg PO HS [facility] Last Admin: 07/18/18 21:01 Dose: 5 mg Tiotropium [place] (Spiriva) 18 mcg INH RQ24 [facility] Last Admin: 07/19/18 08:37 Dose: 18 mcg - Labs Labs: 07/19/18 05:52 07/19/18 05:52 - Constitutional Appears: Non-toxic, Chronically Ill - Head Exam Head Exam: NORMOCEPHALIC - Eye Exam Eye Exam: absent: Scleral icterus - ENT Exam ENT Exam: Mucous Membranes Dry, Mucous Membranes Moist, TM's Normal Bilaterally - Neck Exam Neck Exam: absent: Lymphadenopathy - Respiratory Exam Respiratory Exam: Decreased Breath Sounds, Prolonged Expiratory Phase, Rhonchi - Cardiovascular Exam Cardiovascular Exam: REGULAR RHYTHM, +S1, +S2 - GI/Abdominal Exam GI & Abdominal Exam: Distended, Soft. absent: Tenderness - Rectal Exam Rectal Exam: Deferred - Exam Exam: NORMAL INSPECTION - Extremities Exam Extremities Exam: absent: Pedal Edema - Back Exam Back Exam: absent: CVA tenderness (L), CVA tenderness (R) - Neurological Exam Neurological Exam: Alert, Awake, CN II-XII Intact, Oriented x3. absent: Normal Gait - Psychiatric Exam Psychiatric exam: Depressed Assessment and Plan (1) CHF exacerbation Status: Acute (2) Chronic a-fib Status: Acute (3) Dyspnea Status: Acute (4) ESRD (end stage renal disease) on dialysis Status: Acute (5) Uncontrolled diabetes mellitus Status: Acute - Assessment and Plan (Free Text) Assessment: cont iv rx and monitor cultures
--- NOTE | 2018-07-19 18:17 | CP.PCM.PN ---
Subjective - Date & Time of Evaluation Date of Evaluation: 07/19/18 Time of Evaluation: 12:10 - Subjective Subjective: Patient examined today at bedside no acute interim events remains in afib No nausea No vomiting Dizziness No diarrhea No headaches No fever Objective - Vital Signs/Intake and Output Vital Signs (last 24 hours): Temp Pulse Resp BP Pulse Ox 98.3 F 83 22 114/54 L 97 07/19/18 16:00 07/19/18 18:00 07/19/18 18:00 07/19/18 16:18 07/19/18 18:00 Intake and Output: 07/19/18 07/19/18 06:59 18:59 Intake Total 290 1060 Balance 290 1060 - Medications Medications: Current Medications Acetaminophen (Tylenol 325mg Tab) 650 mg PO Q6 PRN PRN Reason: Fever >100.4 F Last Admin: 06/26/18 18:19 Dose: 650 mg Amiodarone HCl (Cordarone) 200 mg PO TID [facility] Last Admin: 07/19/18 15:11 Dose: Not Given Apixaban (Eliquis) 2.5 mg PO Q48H [facility] Last Admin: 07/19/18 15:11 Dose: 2.5 mg Budesonide (Pulmicort Respules) 0.25 mg IH RBID [facility] Last Admin: 07/19/18 08:37 Dose: 0.25 mg Calcium Acetate (Phoslo) 667 mg PO TIDCC [facility] Last Admin: 07/19/18 16:36 Dose: 667 mg Dextrose (Dextrose 50% Inj) 0 ml IV STAT PRN; Protocol PRN Reason: Hypoglycemia Protocol Last Admin: 07/18/18 03:39 Dose: 50 ml Dextrose (Glutose 15) 0 gm PO ONCE PRN; Protocol PRN Reason: Hypoglycemia Protocol Diltiazem HCl (Cardizem Cd) 240 mg PO DAILY [facility] Last Admin: 07/19/18 12:28 Dose: 240 mg Docusate Sodium (Colace) 100 mg PO BID [facility] Last Admin: 07/19/18 12:29 Dose: 100 mg Emollient Ointment (Vaseline Oint) 5 gm TOP Q4H PRN PRN Reason: Dry skin Last Admin: 07/18/18 17:52 Dose: 5 gm Famotidine (Pepcid) 20 mg PO DAILY [facility] Last Admin: 07/19/18 12:30 Dose: 20 mg Fluticasone/Vilanterol (Breo Ellipta 200-25 Mcg Inh) 1 puff INH RQD [facility] Last Admin: 07/19/18 08:37 Dose: 1 puff Glipizide (Glucotrol) 10 mg PO ACBD [facility] Last Admin: 07/19/18 16:36 Dose: Not Given Glucagon (Glucagen Diagnostic Kit) 0 mg IM STAT PRN; Protocol PRN Reason: Hypoglycemia Protocol Guaifenesin (Robitussin) 100 mg PO Q6H PRN PRN Reason: Cough Last Admin: 07/17/18 19:54 Dose: 100 mg Home Med (Patient's Own Drops) 1 drop OD DAILY [facility] Last Admin: 07/19/18 12:30 Dose: 1 drop Micafungin Sodium 100 mg/ (Sodium Chloride) 100 mls @ 100 mls/hr IV Q24H [facility]; Protocol Last Admin: 07/19/18 15:11 Dose: 100 mls/hr Dextrose (Dextrose 5% In Water 1000 Ml) 1,000 mls @ 0 mls/hr IV .Q0M PRN; Protocol PRN Reason: Hypoglycemia Protocol Insulin Aspart (Novolog) 10 unit SC ONCE [facility] Insulin Aspart (Novolog) 0 unit SC ACHS [facility]; Protocol Last Admin: 07/19/18 16:36 Dose: Not Given Insulin Detemir (Levemir) 12 unit SC Q12H [facility] Last Admin: 07/19/18 12:29 Dose: Not Given Levothyroxine Sodium (Synthroid) 150 mcg PO DAILY@0630 [facility] Last Admin: 07/17/18 06:06 Dose: 150 mcg Polyethylene Glycol (Miralax) 17 gm PO DAILY PRN PRN Reason: Constipation Last Admin: 07/14/18 08:29 Dose: 17 gm Rosuvastatin Calcium (Crestor) 5 mg PO HS [facility] Last Admin: 07/18/18 21:01 Dose: 5 mg Tiotropium [place] (Spiriva) 18 mcg INH RQ24 [facility] Last Admin: 07/19/18 08:37 Dose: 18 mcg - Labs Labs: 07/19/18 05:52 07/19/18 05:52 - Constitutional Appears: Well - Head Exam Head Exam: ATRAUMATIC, NORMAL INSPECTION, NORMOCEPHALIC - Eye Exam Eye Exam: EOMI, Normal appearance, PERRL Pupil Exam: NORMAL ACCOMODATION, PERRL - ENT Exam ENT Exam: Mucous Membranes Moist, Normal Exam - Neck Exam Neck Exam: Full ROM, Normal Inspection. absent: Lymphadenopathy - Respiratory Exam Respiratory Exam: Decreased Breath Sounds - Cardiovascular Exam Cardiovascular Exam: REGULAR RHYTHM, +S1, +S2 - GI/Abdominal Exam GI & Abdominal Exam: Soft, Diminished Bowel Sounds - Rectal Exam Rectal Exam: Deferred - Neurological Exam Neurological Exam: Oriented x3 Assessment and Plan (1) CHF exacerbation Status: Acute (2) Dyspnea Status: Acute (3) ESRD (end stage renal disease) on dialysis Status: Acute (4) Uncontrolled diabetes mellitus Status: Acute (5) MARIA EUGENIA (acute kidney injury) Status: Acute (6) Abdominal pain Status: Acute (7) Acute bronchitis Status: Acute (8) Acute kidney injury Status: Acute (9) Acute kidney injury superimposed on chronic kidney disease Status: Acute (10) Acute respiratory failure Status: Acute (11) Anemia Status: Acute (12) Anemia of chronic disease Status: Acute (13) Atrial fibrillation with controlled ventricular response Status: Acute (14) Back pain of thoracolumbar region Status: Acute (15) Bronchitis Status: Acute (16) Bronchitis Status: Acute (17) CHF (congestive heart failure) Status: Acute (18) CHF (congestive heart failure) Status: Acute (19) CKD (chronic kidney disease) stage 3, GFR 30-59 ml/min Status: Acute (20) COPD (chronic obstructive pulmonary disease) Status: Acute (21) COPD exacerbation Status: Acute (22) COPD exacerbation Status: Acute (23) Chest pain Status: Acute (24) ESR raised Status: Acute (25) ESRD (end stage renal disease) Status: Acute (26) Fluid overload Status: Acute (27) Fluid overload, unspecified Status: Acute (28) Gastritis Status: Acute (29) Hepatitis Status: Acute (30) History of asthma Status: Acute (31) History of atrial fibrillation Status: Acute (32) History of back pain Status: Acute (33) History of gastroesophageal reflux (GERD) Status: Acute (34) Hypercalcemia Status: Acute (35) Hyperlipemia Status: Acute (36) Influenza Status: Acute (37) Leucocytosis Status: Acute (38) Lower extremity pain Status: Acute (39) Multiple myeloma Status: Acute (40) Multiple myeloma Status: Acute (41) Myeloma Status: Acute (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 (43) Occult gastrointestinal hemorrhage Status: Acute (44) Paroxysmal A-fib Status: Acute (45) Pneumonia Status: Acute (46) Prophylactic measure Status: Acute (47) Pulmonary hypertension Status: Acute (48) Pulmonary hypertension Status: Acute (49) Renal failure Status: Acute (50) Respiratory tract infection Status: Acute (51) Streptococcus pneumoniae Status: Acute (52) Symptomatic anemia Status: Acute (53) Vertigo Status: Acute (54) Worsening renal function Status: Acute (55) Anemia Status: Chronic (56) Asthma Status: Chronic (57) Atrial fibrillation Status: Chronic (58) Chronic diastolic (congestive) heart failure Status: Chronic (59) Diabetes Status: Chronic (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 - Assessment and Plan (Free Text) Plan: Breo Ellipta Cardizem CD Colace Cordarone Crestor Dextrose 5% Dextrose 50% injection Eliquis Glucotrol Glutose 15 Levemir Micafungin sodium 100 MiraLAX NovoLog Patient own drops Pepcid PhosLo Pulmicort respules Robitussin Spiriva Synthroid Tylenol Vaseline ointment Medications, vitals, and labs have all been reviewed renal diet HD per Nephro Dr Bill resp support as necessary pt/ot f/u with consultants riana as ordered
[2018-07-20 06:21] LABS: BASO % 0.3 % (0.0-2.0); EOS % 0.3 % (0.0-4.0); HEMOGLOBIN 9.4 g/dL (11.0-16.0); LYMPH # 0.5 K/uL (1.0-4.3); MEAN CORPUSCULAR HEMOGLOBIN 28.6 pg (27.0-31.0); MEAN CORPUSCULAR HGB CONC 32.5 g/dL (33.0-37.0); MONO # 0.5 K/uL (0.0-0.8); MONO % 8.1 % (0.0-10.0); NEUT % 83.3 % (50.0-75.0); PLATELET COUNT 90 K/uL (130-400); RBC 3.28 Mil/uL (3.80-5.20)
[2018-07-20 07:19] LABS: ALBUMIN 2.6 g/dL (3.5-5.0); CALCIUM 7.6 mg/dl (8.6-10.4)
[2018-07-20] MEDS: Fluticasone-Vilanterol 200/25mcg Diskus INH SCH (08:35)
[2018-07-20] MEDS: Budesonide 0.25 mg/2 ml Inhal Susp UD IH SCH ×2 (08:35→20:14)
[2018-07-20] MEDS: Tiotropium 18 mcg Cap For Inhalation INH SCH (08:35)
[2018-07-20] MEDS: (Novolog) Insulin Aspart, Recombinant 100 u/ml 10 ml vial SC SCH ×4 (09:00→21:19)
[2018-07-20 09:01] LABS: ANISOCYTOSIS SLIGHT; HYPOCHROMIC SLIGHT; LARGE PLATELETS PRESENT; LYMPHOCYTE 8 % (20-40); MONOCYTE 4 % (0-10); NEUTROPHIL 88 % (50-75); PLATELET ESTIMATE DECREASED (NORMAL); POLYCHROMIC SLIGHT; TOTAL CELLS COUNTED 100
[2018-07-20 09:02] LABS: GIANT PLATELETS PRESENT
[2018-07-20 09:03] LABS: TOXIC GRANULATION PRESENT
[2018-07-20] MEDS: diltiaZEM 240 mg/24 Hours CD Cap PO SCH (09:23)
[2018-07-20] MEDS: BROMFENAC 0.07% OD SCH (09:24)
--- NOTE | 2018-07-20 09:45 | CP.PCM.PN ---
Subjective - Date & Time of Evaluation Date of Evaluation: 07/20/18 Time of Evaluation: 09:42 - Subjective Subjective: alert VR now 100; remains in a fib stable appetite, no dyspnea, CPs labs reviewed stable dialysis 07/19 Objective - Vital Signs/Intake and Output Vital Signs (last 24 hours): Temp Pulse Resp BP Pulse Ox 98.4 F 100 H 17 118/64 97 07/20/18 08:00 07/20/18 09:10 07/20/18 09:10 07/20/18 09:28 07/20/18 09:10 Intake and Output: 07/20/18 07/20/18 06:59 18:59 Intake Total 360 Balance 360 - Medications Medications: Current Medications Acetaminophen (Tylenol 325mg Tab) 650 mg PO Q6 PRN PRN Reason: Fever >100.4 F Last Admin: 06/26/18 18:19 Dose: 650 mg Amiodarone HCl (Cordarone) 200 mg PO TID [facility] Last Admin: 07/20/18 09:23 Dose: 200 mg Apixaban (Eliquis) 2.5 mg PO Q48H [facility] Last Admin: 07/19/18 15:11 Dose: 2.5 mg Budesonide (Pulmicort Respules) 0.25 mg IH RBID [facility] Last Admin: 07/20/18 08:35 Dose: 0.25 mg Calcium Acetate (Phoslo) 667 mg PO TIDCC [facility] Last Admin: 07/20/18 09:00 Dose: 667 mg Dextrose (Dextrose 50% Inj) 0 ml IV STAT PRN; Protocol PRN Reason: Hypoglycemia Protocol Last Admin: 07/18/18 03:39 Dose: 50 ml Dextrose (Glutose 15) 0 gm PO ONCE PRN; Protocol PRN Reason: Hypoglycemia Protocol Diltiazem HCl (Cardizem Cd) 240 mg PO DAILY [facility] Last Admin: 07/20/18 09:23 Dose: 240 mg Docusate Sodium (Colace) 100 mg PO BID [facility] Last Admin: 07/20/18 09:23 Dose: 100 mg Emollient Ointment (Vaseline Oint) 5 gm TOP Q4H PRN PRN Reason: Dry skin Last Admin: 07/18/18 17:52 Dose: 5 gm Famotidine (Pepcid) 20 mg PO DAILY [facility] Last Admin: 07/20/18 09:23 Dose: 20 mg Fluticasone/Vilanterol (Breo Ellipta 200-25 Mcg Inh) 1 puff INH RQD [facility] Last Admin: 07/20/18 08:35 Dose: 1 puff Glipizide (Glucotrol) 10 mg PO ACBD [facility] Last Admin: 07/20/18 09:00 Dose: 10 mg Glucagon (Glucagen Diagnostic Kit) 0 mg IM STAT PRN; Protocol PRN Reason: Hypoglycemia Protocol Guaifenesin (Robitussin) 100 mg PO Q6H PRN PRN Reason: Cough Last Admin: 07/17/18 19:54 Dose: 100 mg Home Med (Patient's Own Drops) 1 drop OD DAILY [facility] Last Admin: 07/20/18 09:24 Dose: 1 drop Micafungin Sodium 100 mg/ (Sodium Chloride) 100 mls @ 100 mls/hr IV Q24H [facility]; Protocol Last Admin: 07/19/18 15:11 Dose: 100 mls/hr Dextrose (Dextrose 5% In Water 1000 Ml) 1,000 mls @ 0 mls/hr IV .Q0M PRN; Protocol PRN Reason: Hypoglycemia Protocol Insulin Aspart (Novolog) 10 unit SC ONCE [facility] Insulin Aspart (Novolog) 0 unit SC ACHS [facility]; Protocol Last Admin: 07/20/18 09:00 Dose: 8 units Insulin Detemir (Levemir) 12 unit SC Q12H [facility] Last Admin: 07/19/18 22:30 Dose: Not Given Levothyroxine Sodium (Synthroid) 150 mcg PO DAILY@0630 [facility] Last Admin: 07/17/18 06:06 Dose: 150 mcg Polyethylene Glycol (Miralax) 17 gm PO DAILY PRN PRN Reason: Constipation Last Admin: 07/14/18 08:29 Dose: 17 gm Rosuvastatin Calcium (Crestor) 5 mg PO HS [facility] Last Admin: 07/19/18 21:55 Dose: 5 mg Tiotropium [place] (Spiriva) 18 mcg INH RQ24 [facility] Last Admin: 07/20/18 08:35 Dose: 18 mcg - Labs Labs: 07/20/18 06:14 07/20/18 06:14 - Constitutional Appears: No Acute Distress, Chronically Ill - Head Exam Head Exam: ATRAUMATIC, NORMAL INSPECTION - Eye Exam Eye Exam: EOMI, Normal appearance - Neck Exam Neck Exam: Normal Inspection. absent: Tenderness - Respiratory Exam Respiratory Exam: Clear to Ausculation Bilateral, NORMAL BREATHING PATTERN - Cardiovascular Exam Cardiovascular Exam: Tachycardia, Irregular Rhythm - GI/Abdominal Exam GI & Abdominal Exam: Soft. absent: Tenderness - Extremities Exam Extremities Exam: Normal Inspection. absent: Tenderness - Neurological Exam Neurological Exam: Awake, CN II-XII Intact - Skin Skin Exam: Dry, Warm Assessment and Plan (1) Atrial fibrillation with RVR Status: Resolved (2) CHF exacerbation Status: Acute (3) COPD exacerbation Status: Acute (4) Multiple myeloma Status: Acute - Assessment and Plan (Free Text) Plan: dialysis MWF same meds for AFib control limit UF as HR increases with dialysis
[2018-07-20] MEDS: guaiFENesin 100 mg/5 ml Syrup UD PO PRN ×2 (12:27→18:26)
[2018-07-20] MEDS: Insulin Detemir 100 units/ml Vial (Levemir) SC SCH ×2 (12:29→22:31)
[2018-07-20] MEDS: Micafungin 100 MG in Sodium Chloride 0.9% 100 ML IV SCH (16:49)
--- NOTE | 2018-07-20 19:52 | CP.PCM.PN ---
Subjective - Date & Time of Evaluation Date of Evaluation: 07/20/18 Time of Evaluation: 16:00 - Subjective Subjective: stil in icu seen by multiple consutlatns WBC is fine No nausea no vomiting no fever Objective - Vital Signs/Intake and Output Vital Signs (last 24 hours): Temp Pulse Resp BP Pulse Ox 99.2 F 83 13 120/48 L 96 07/20/18 17:00 07/20/18 18:00 07/20/18 16:30 07/20/18 16:18 07/20/18 17:00 Intake and Output: 07/20/18 07/21/18 18:59 06:59 Intake Total 250 Balance 250 - Medications Medications: Current Medications Acetaminophen (Tylenol 325mg Tab) 650 mg PO Q6 PRN PRN Reason: Fever >100.4 F Last Admin: 06/26/18 18:19 Dose: 650 mg Amiodarone HCl (Cordarone) 200 mg PO TID [facility] Last Admin: 07/20/18 17:24 Dose: 200 mg Apixaban (Eliquis) 2.5 mg PO Q48H [facility] Last Admin: 07/19/18 15:11 Dose: 2.5 mg Budesonide (Pulmicort Respules) 0.25 mg IH RBID [facility] Last Admin: 07/20/18 08:35 Dose: 0.25 mg Calcium Acetate (Phoslo) 667 mg PO TIDCC [facility] Last Admin: 07/20/18 17:23 Dose: 667 mg Dextrose (Dextrose 50% Inj) 0 ml IV STAT PRN; Protocol PRN Reason: Hypoglycemia Protocol Last Admin: 07/18/18 03:39 Dose: 50 ml Dextrose (Glutose 15) 0 gm PO ONCE PRN; Protocol PRN Reason: Hypoglycemia Protocol Diltiazem HCl (Cardizem Cd) 240 mg PO DAILY [facility] Last Admin: 07/20/18 09:23 Dose: 240 mg Docusate Sodium (Colace) 100 mg PO BID [facility] Last Admin: 07/20/18 17:24 Dose: 100 mg Emollient Ointment (Vaseline Oint) 5 gm TOP Q4H PRN PRN Reason: Dry skin Last Admin: 07/18/18 17:52 Dose: 5 gm Famotidine (Pepcid) 20 mg PO DAILY [facility] Last Admin: 07/20/18 09:23 Dose: 20 mg Fluticasone/Vilanterol (Breo Ellipta 200-25 Mcg Inh) 1 puff INH RQD [facility] Last Admin: 07/20/18 08:35 Dose: 1 puff Glipizide (Glucotrol) 10 mg PO ACBD [facility] Last Admin: 07/20/18 16:43 Dose: Not Given Glucagon (Glucagen Diagnostic Kit) 0 mg IM STAT PRN; Protocol PRN Reason: Hypoglycemia Protocol Guaifenesin (Robitussin) 100 mg PO Q6H PRN PRN Reason: Cough Last Admin: 07/20/18 18:26 Dose: 100 mg Home Med (Patient's Own Drops) 1 drop OD DAILY [facility] Last Admin: 07/20/18 09:24 Dose: 1 drop Micafungin Sodium 100 mg/ (Sodium Chloride) 100 mls @ 100 mls/hr IV Q24H [facility]; Protocol Last Admin: 07/20/18 16:49 Dose: 100 mls/hr Dextrose (Dextrose 5% In Water 1000 Ml) 1,000 mls @ 0 mls/hr IV .Q0M PRN; Protocol PRN Reason: Hypoglycemia Protocol Insulin Aspart (Novolog) 10 unit SC ONCE [facility] Insulin Aspart (Novolog) 0 unit SC ACHS [facility]; Protocol Last Admin: 07/20/18 16:44 Dose: Not Given Insulin Detemir (Levemir) 12 unit SC Q12H [facility] Last Admin: 07/20/18 12:29 Dose: 12 units Levothyroxine Sodium (Synthroid) 150 mcg PO DAILY@0630 [facility] Last Admin: 07/17/18 06:06 Dose: 150 mcg Polyethylene Glycol (Miralax) 17 gm PO DAILY PRN PRN Reason: Constipation Last Admin: 07/14/18 08:29 Dose: 17 gm Rosuvastatin Calcium (Crestor) 5 mg PO HS [facility] Last Admin: 07/19/18 21:55 Dose: 5 mg Tiotropium [place] (Spiriva) 18 mcg INH RQ24 [facility] Last Admin: 07/20/18 08:35 Dose: 18 mcg - Labs Labs: 07/20/18 06:14 07/20/18 06:14 - Constitutional Appears: Well - Head Exam Head Exam: ATRAUMATIC, NORMAL INSPECTION, NORMOCEPHALIC - Eye Exam Eye Exam: EOMI, Normal appearance, PERRL Pupil Exam: NORMAL ACCOMODATION, PERRL - ENT Exam ENT Exam: Mucous Membranes Moist, Normal Exam - Neck Exam Neck Exam: Full ROM, Normal Inspection. absent: Lymphadenopathy - Respiratory Exam Respiratory Exam: Decreased Breath Sounds - Cardiovascular Exam Cardiovascular Exam: REGULAR RHYTHM, +S1, +S2 - GI/Abdominal Exam GI & Abdominal Exam: Soft, Diminished Bowel Sounds - Rectal Exam Rectal Exam: Deferred - Neurological Exam Neurological Exam: Oriented x3 Assessment and Plan (1) CHF exacerbation Status: Acute (2) Dyspnea Status: Acute (3) ESRD (end stage renal disease) on dialysis Status: Acute (4) Uncontrolled diabetes mellitus Status: Acute (5) MARIA EUGENIA (acute kidney injury) Status: Acute (6) Abdominal pain Status: Acute (7) Acute bronchitis Status: Acute (8) Acute kidney injury Status: Acute (9) Acute kidney injury superimposed on chronic kidney disease Status: Acute (10) Acute respiratory failure Status: Acute (11) Anemia Status: Acute (12) Anemia of chronic disease Status: Acute (13) Atrial fibrillation with controlled ventricular response Status: Acute (14) Back pain of thoracolumbar region Status: Acute (15) Bronchitis Status: Acute (16) Bronchitis Status: Acute (17) CHF (congestive heart failure) Status: Acute (18) CHF (congestive heart failure) Status: Acute (19) CKD (chronic kidney disease) stage 3, GFR 30-59 ml/min Status: Acute (20) COPD (chronic obstructive pulmonary disease) Status: Acute (21) COPD exacerbation Status: Acute (22) COPD exacerbation Status: Acute (23) Chest pain Status: Acute (24) ESR raised Status: Acute (25) ESRD (end stage renal disease) Status: Acute (26) Fluid overload Status: Acute (27) Fluid overload, unspecified Status: Acute (28) Gastritis Status: Acute (29) Hepatitis Status: Acute (30) History of asthma Status: Acute (31) History of atrial fibrillation Status: Acute (32) History of back pain Status: Acute (33) History of gastroesophageal reflux (GERD) Status: Acute (34) Hypercalcemia Status: Acute (35) Hyperlipemia Status: Acute (36) Influenza Status: Acute (37) Leucocytosis Status: Acute (38) Lower extremity pain Status: Acute (39) Multiple myeloma Status: Acute (40) Multiple myeloma Status: Acute (41) Myeloma Status: Acute (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 (43) Occult gastrointestinal hemorrhage Status: Acute (44) Paroxysmal A-fib Status: Acute (45) Pneumonia Status: Acute (46) Prophylactic measure Status: Acute (47) Pulmonary hypertension Status: Acute (48) Pulmonary hypertension Status: Acute (49) Renal failure Status: Acute (50) Respiratory tract infection Status: Acute (51) Streptococcus pneumoniae Status: Acute (52) Symptomatic anemia Status: Acute (53) Vertigo Status: Acute (54) Worsening renal function Status: Acute (55) Anemia Status: Chronic (56) Asthma Status: Chronic (57) Atrial fibrillation Status: Chronic (58) Chronic diastolic (congestive) heart failure Status: Chronic (59) Diabetes Status: Chronic (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 once cleared by dr. boss Plan: medications reviewed breo ellipta cardizam cd colace cordarone crestor dexrose 5% in water dextrose 50% inj eliquis glucagen diag kit glucotrol glutose 15 levemir micafungin sodium miralax novolog patients own drops pepcid phoslo pulmicort respules robitussin spiriva synthroid tylenol 325mg vaseline oint labs and vitals reviewed
[2018-07-21 06:21] LABS: BASO % 0.5 % (0.0-2.0); EOS % 0.2 % (0.0-4.0); HEMOGLOBIN 9.2 g/dL (11.0-16.0); LYMPH # 0.7 K/uL (1.0-4.3); LYMPH % 10.4 % (20.0-40.0); MEAN CELL VOLUME 87.8 fL (81.0-99.0); MEAN CORPUSCULAR HEMOGLOBIN 28.3 pg (27.0-31.0); MEAN CORPUSCULAR HGB CONC 32.3 g/dL (33.0-37.0); MEAN PLATELET VOLUME 10.4 fL (7.2-11.7); MONO # 0.6 K/uL (0.0-0.8); MONO % 9.2 % (0.0-10.0); NEUT % 79.7 % (50.0-75.0); RBC 3.26 Mil/uL (3.80-5.20); RED CELL DISTRIBUTION WIDTH 16.1 % (11.5-14.5); WHITE BLOOD COUNT 6.3 K/uL (4.8-10.8)
[2018-07-21 06:37] LABS: ALBUMIN 2.6 g/dL (3.5-5.0); CALCIUM 7.7 mg/dl (8.6-10.4)
[2018-07-21] MEDS: (Novolog) Insulin Aspart, Recombinant 100 u/ml 10 ml vial SC SCH ×4 (08:30→21:28)
[2018-07-21] MEDS: diltiaZEM 240 mg/24 Hours CD Cap PO SCH (09:40)
[2018-07-21] MEDS: BROMFENAC 0.07% OD SCH (10:00)
--- NOTE | 2018-07-21 10:17 | CP.PCM.PN ---
Subjective - Date & Time of Evaluation Date of Evaluation: 07/21/18 - Subjective Subjective: Patient seen and examined today No nausea No vomiting No fever No diarrhea No dizziness No shortness of breath Objective - Vital Signs/Intake and Output Vital Signs (last 24 hours): Temp Pulse Resp BP Pulse Ox 98 F 71 22 114/43 L 99 07/21/18 04:00 07/21/18 05:00 07/21/18 05:00 07/21/18 04:18 07/21/18 05:00 Intake and Output: 07/21/18 07/21/18 06:59 18:59 Intake Total 100 Balance 100 - Medications Medications: Current Medications Acetaminophen (Tylenol 325mg Tab) 650 mg PO Q6 PRN PRN Reason: Fever >100.4 F Last Admin: 06/26/18 18:19 Dose: 650 mg Amiodarone HCl (Cordarone) 200 mg PO TID [facility] Last Admin: 07/21/18 09:43 Dose: 200 mg Apixaban (Eliquis) 2.5 mg PO Q48H [facility] Last Admin: 07/19/18 15:11 Dose: 2.5 mg Budesonide (Pulmicort Respules) 0.25 mg IH RBID [facility] Last Admin: 07/20/18 20:14 Dose: 0.25 mg Calcium Acetate (Phoslo) 667 mg PO TIDCC [facility] Last Admin: 07/21/18 09:00 Dose: 667 mg Dextrose (Dextrose 50% Inj) 0 ml IV STAT PRN; Protocol PRN Reason: Hypoglycemia Protocol Last Admin: 07/18/18 03:39 Dose: 50 ml Dextrose (Glutose 15) 0 gm PO ONCE PRN; Protocol PRN Reason: Hypoglycemia Protocol Diltiazem HCl (Cardizem Cd) 240 mg PO DAILY [facility] Last Admin: 07/21/18 09:40 Dose: 240 mg Docusate Sodium (Colace) 100 mg PO BID [facility] Last Admin: 07/21/18 09:40 Dose: 100 mg Emollient Ointment (Vaseline Oint) 5 gm TOP Q4H PRN PRN Reason: Dry skin Last Admin: 07/18/18 17:52 Dose: 5 gm Famotidine (Pepcid) 20 mg PO DAILY [facility] Last Admin: 07/21/18 09:40 Dose: 20 mg Fluticasone/Vilanterol (Breo Ellipta 200-25 Mcg Inh) 1 puff INH RQD [facility] Last Admin: 07/20/18 08:35 Dose: 1 puff Glipizide (Glucotrol) 10 mg PO ACBD [facility] Last Admin: 07/21/18 08:30 Dose: 10 mg Glucagon (Glucagen Diagnostic Kit) 0 mg IM STAT PRN; Protocol PRN Reason: Hypoglycemia Protocol Guaifenesin (Robitussin) 100 mg PO Q6H PRN PRN Reason: Cough Last Admin: 07/20/18 18:26 Dose: 100 mg Home Med (Patient's Own Drops) 1 drop OD DAILY [facility] Last Admin: 07/20/18 09:24 Dose: 1 drop Micafungin Sodium 100 mg/ (Sodium Chloride) 100 mls @ 100 mls/hr IV Q24H [facility]; Protocol Last Admin: 07/20/18 16:49 Dose: 100 mls/hr Insulin Aspart (Novolog) 10 unit SC ONCE [facility] Insulin Aspart (Novolog) 0 unit SC ACHS [facility]; Protocol Last Admin: 07/21/18 08:30 Dose: Not Given Insulin Detemir (Levemir) 12 unit SC Q12H [facility] Last Admin: 07/20/18 22:31 Dose: Not Given Levothyroxine Sodium (Synthroid) 150 mcg PO DAILY@0630 [facility] Last Admin: 07/17/18 06:06 Dose: 150 mcg Polyethylene Glycol (Miralax) 17 gm PO DAILY PRN PRN Reason: Constipation Last Admin: 07/14/18 08:29 Dose: 17 gm Rosuvastatin Calcium (Crestor) 5 mg PO HS [facility] Last Admin: 07/20/18 21:18 Dose: 5 mg Tiotropium [place] (Spiriva) 18 mcg INH RQ24 [facility] Last Admin: 07/20/18 08:35 Dose: 18 mcg - Labs Labs: 07/21/18 06:13 07/21/18 06:13 - Constitutional Appears: Well - Head Exam Head Exam: ATRAUMATIC, NORMAL INSPECTION, NORMOCEPHALIC - Eye Exam Eye Exam: EOMI, Normal appearance, PERRL Pupil Exam: NORMAL ACCOMODATION, PERRL - ENT Exam ENT Exam: Mucous Membranes Moist, Normal Exam - Neck Exam Neck Exam: Full ROM, Normal Inspection. absent: Lymphadenopathy - Respiratory Exam Respiratory Exam: Decreased Breath Sounds - Cardiovascular Exam Cardiovascular Exam: REGULAR RHYTHM, +S2 - GI/Abdominal Exam GI & Abdominal Exam: Soft, Diminished Bowel Sounds - Rectal Exam Rectal Exam: Deferred - Neurological Exam Neurological Exam: Oriented x3 Assessment and Plan (1) CHF exacerbation Status: Acute (2) Dyspnea Status: Acute (3) ESRD (end stage renal disease) on dialysis Status: Acute (4) Uncontrolled diabetes mellitus Status: Acute (5) MARIA EUGENIA (acute kidney injury) Status: Acute (6) Abdominal pain Status: Acute (7) Acute bronchitis Status: Acute (8) Acute kidney injury Status: Acute (9) Acute kidney injury superimposed on chronic kidney disease Status: Acute (10) Acute respiratory failure Status: Acute (11) Anemia Status: Acute (12) Anemia of chronic disease Status: Acute (13) Atrial fibrillation with controlled ventricular response Status: Acute (14) Back pain of thoracolumbar region Status: Acute (15) Bronchitis Status: Acute (16) Bronchitis Status: Acute (17) CHF (congestive heart failure) Status: Acute (18) CHF (congestive heart failure) Status: Acute (19) CKD (chronic kidney disease) stage 3, GFR 30-59 ml/min Status: Acute (20) COPD (chronic obstructive pulmonary disease) Status: Acute (21) COPD exacerbation Status: Acute (22) COPD exacerbation Status: Acute (23) Chest pain Status: Acute (24) ESR raised Status: Acute (25) ESRD (end stage renal disease) Status: Acute (26) Fluid overload Status: Acute (27) Fluid overload, unspecified Status: Acute (28) Gastritis Status: Acute (29) Hepatitis Status: Acute (30) History of asthma Status: Acute (31) History of atrial fibrillation Status: Acute (32) History of back pain Status: Acute (33) History of gastroesophageal reflux (GERD) Status: Acute (34) Hypercalcemia Status: Acute (35) Hyperlipemia Status: Acute (36) Influenza Status: Acute (37) Leucocytosis Status: Acute (38) Lower extremity pain Status: Acute (39) Multiple myeloma Status: Acute (40) Multiple myeloma Status: Acute (41) Myeloma Status: Acute (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 (43) Occult gastrointestinal hemorrhage Status: Acute (44) Paroxysmal A-fib Status: Acute (45) Pneumonia Status: Acute (46) Prophylactic measure Status: Acute (47) Pulmonary hypertension Status: Acute (48) Pulmonary hypertension Status: Acute (49) Renal failure Status: Acute (50) Respiratory tract infection Status: Acute (51) Streptococcus pneumoniae Status: Acute (52) Symptomatic anemia Status: Acute (53) Vertigo Status: Acute (54) Worsening renal function Status: Acute (55) Anemia Status: Chronic (56) Asthma Status: Chronic (57) Atrial fibrillation Status: Chronic (58) Chronic diastolic (congestive) heart failure Status: Chronic (59) Diabetes Status: Chronic (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 ruiz bautista cd colace cardarone crestor dextrose 50% inj]eliquis glucagen diagnostic kit glucotrol glutose 15 levemir micafungin sodium miralax novolog patients own drops drops pepcid phoslo pulmicort respules robitussin spiriva synthroid tylenol vaseline oint
[2018-07-21] MEDS: Insulin Detemir 100 units/ml Vial (Levemir) SC SCH ×2 (11:00→22:54)
[2018-07-21] MEDS: Micafungin 100 MG in Sodium Chloride 0.9% 100 ML IV SCH (16:00)
[2018-07-21] MEDS: guaiFENesin 100 mg/5 ml Syrup UD PO PRN (17:34)
[2018-07-21] MEDS: Budesonide 0.25 mg/2 ml Inhal Susp UD IH SCH (19:27)
--- NOTE | 2018-07-21 20:49 | PN ---
DATE: 07/20/2018 SUBJECTIVE: The patient with multiple myeloma, anemia, atrial flutter/fibrillation, COPD, who is in the ICU for elevated blood sugar. The patient apparently had epistaxis this morning. She was on Eliquis every 48 hours. PHYSICAL EXAMINATION: GENERAL: The patient is alert and oriented, not in any distress. LUNGS: Diminished breath sounds bilaterally. HEART: S1, S2 ejection systolic murmur. VITAL SIGNS: Blood pressure is 110/70, pulse is at 80 irregularly irregular, respiratory rate 18. ASSESSMENT AND PLAN: At this time, the patient's atrial fibrillation rate is well controlled. She is on amiodarone 200 mg t.i.d. and Cardizem which will be continued. Anticoagulation is being held because of epistaxis. Nathan Momin MD
--- NOTE | 2018-07-21 21:56 | CP.PCM.PN ---
Subjective - Date & Time of Evaluation Date of Evaluation: 07/21/18 Time of Evaluation: 10:00 - Subjective Subjective: seen on rounds rx renewed DENIES FEVER CHILLS COUGH IS LESS Objective - Vital Signs/Intake and Output Vital Signs (last 24 hours): Temp Pulse Resp BP Pulse Ox 98.3 F 94 H 17 115/38 L 90 L 07/21/18 12:00 07/21/18 12:18 07/21/18 12:18 07/21/18 12:18 07/21/18 12:18 Intake and Output: 07/21/18 07/21/18 06:59 18:59 Intake Total 100 Balance 100 - Medications Medications: Current Medications Acetaminophen (Tylenol 325mg Tab) 650 mg PO Q6 PRN PRN Reason: Fever >100.4 F Last Admin: 06/26/18 18:19 Dose: 650 mg Amiodarone HCl (Cordarone) 200 mg PO TID [facility] Last Admin: 07/21/18 13:00 Dose: 200 mg Apixaban (Eliquis) 2.5 mg PO Q48H [facility] Last Admin: 07/19/18 15:11 Dose: 2.5 mg Budesonide (Pulmicort Respules) 0.25 mg IH RBID [facility] Last Admin: 07/20/18 20:14 Dose: 0.25 mg Calcium Acetate (Phoslo) 667 mg PO TIDCC [facility] Last Admin: 07/21/18 13:00 Dose: 667 mg Dextrose (Dextrose 50% Inj) 0 ml IV STAT PRN; Protocol PRN Reason: Hypoglycemia Protocol Last Admin: 07/18/18 03:39 Dose: 50 ml Dextrose (Glutose 15) 0 gm PO ONCE PRN; Protocol PRN Reason: Hypoglycemia Protocol Diltiazem HCl (Cardizem Cd) 240 mg PO DAILY [facility] Last Admin: 07/21/18 09:40 Dose: 240 mg Docusate Sodium (Colace) 100 mg PO BID [facility] Last Admin: 07/21/18 09:40 Dose: 100 mg Emollient Ointment (Vaseline Oint) 5 gm TOP Q4H PRN PRN Reason: Dry skin Last Admin: 07/18/18 17:52 Dose: 5 gm Famotidine (Pepcid) 20 mg PO DAILY [facility] Last Admin: 07/21/18 09:40 Dose: 20 mg Fluticasone/Vilanterol (Breo Ellipta 200-25 Mcg Inh) 1 puff INH RQD [facility] Last Admin: 07/20/18 08:35 Dose: 1 puff Glipizide (Glucotrol) 10 mg PO ACBD [facility] Last Admin: 07/21/18 08:30 Dose: 10 mg Glucagon (Glucagen Diagnostic Kit) 0 mg IM STAT PRN; Protocol PRN Reason: Hypoglycemia Protocol Guaifenesin (Robitussin) 100 mg PO Q6H PRN PRN Reason: Cough Last Admin: 07/20/18 18:26 Dose: 100 mg Home Med (Patient's Own Drops) 1 drop OD DAILY [facility] Last Admin: 07/21/18 10:00 Dose: Not Given Micafungin Sodium 100 mg/ (Sodium Chloride) 100 mls @ 100 mls/hr IV Q24H [facility]; Protocol Last Admin: 07/20/18 16:49 Dose: 100 mls/hr Insulin Aspart (Novolog) 10 unit SC ONCE [facility] Insulin Aspart (Novolog) 0 unit SC ACHS [facility]; Protocol Last Admin: 07/21/18 12:24 Dose: Not Given Insulin Detemir (Levemir) 12 unit SC Q12H [facility] Last Admin: 07/21/18 11:00 Dose: 12 units Levothyroxine Sodium (Synthroid) 150 mcg PO DAILY@0630 [facility] Last Admin: 07/17/18 06:06 Dose: 150 mcg Polyethylene Glycol (Miralax) 17 gm PO DAILY PRN PRN Reason: Constipation Last Admin: 07/14/18 08:29 Dose: 17 gm Rosuvastatin Calcium (Crestor) 5 mg PO HS [facility] Last Admin: 07/20/18 21:18 Dose: 5 mg Tiotropium [place] (Spiriva) 18 mcg INH RQ24 [facility] Last Admin: 07/20/18 08:35 Dose: 18 mcg - Labs Labs: 07/21/18 06:13 07/21/18 06:13 - Constitutional Appears: Non-toxic, Cachectic, Chronically Ill - Head Exam Head Exam: NORMOCEPHALIC - Eye Exam Eye Exam: absent: Scleral icterus Pupil Exam: NORMAL ACCOMODATION - ENT Exam ENT Exam: Mucous Membranes Dry - Neck Exam Neck Exam: absent: Lymphadenopathy - Respiratory Exam Respiratory Exam: Decreased Breath Sounds, Prolonged Expiratory Phase, Rhonchi - Cardiovascular Exam Cardiovascular Exam: REGULAR RHYTHM, +S1, +S2 - GI/Abdominal Exam GI & Abdominal Exam: Distended, Soft - Rectal Exam Rectal Exam: Deferred - Exam Exam: NORMAL INSPECTION - Extremities Exam Extremities Exam: Pedal Edema (X) - Back Exam Back Exam: absent: CVA tenderness (L) (X), CVA tenderness (R) - Neurological Exam Neurological Exam: Alert, Awake, CN II-XII Intact, Oriented x3. absent: Normal Gait - Psychiatric Exam Psychiatric exam: Depressed - Skin Skin Exam: Dry Assessment and Plan (1) CHF exacerbation Status: Acute (2) Chronic a-fib Status: Acute (3) Dyspnea Status: Acute (4) ESRD (end stage renal disease) on dialysis Status: Acute (5) Uncontrolled diabetes mellitus Status: Acute - Assessment and Plan (Free Text) Assessment: MYCAMINE RENEWED EMPIRIC RX FOR CANDIDIASIS BASED ON RECURRENT + CULTURES SEPSIS SYNDROME AND CLINICAL RESPONSE
[2018-07-22] MEDS: (Novolog) Insulin Aspart, Recombinant 100 u/ml 10 ml vial SC SCH ×5 (07:50→22:21)
[2018-07-22] MEDS: Fluticasone-Vilanterol 200/25mcg Diskus INH SCH (08:39)
[2018-07-22] MEDS: Budesonide 0.25 mg/2 ml Inhal Susp UD IH SCH (08:40)
[2018-07-22] MEDS: Tiotropium 18 mcg Cap For Inhalation INH SCH (08:40)
[2018-07-22] MEDS: BROMFENAC 0.07% OD SCH (10:00)
--- NOTE | 2018-07-22 10:57 | CP.PCM.PN ---
Subjective - Date & Time of Evaluation Date of Evaluation: 07/22/18 Time of Evaluation: 10:55 - Subjective Subjective: just doing dialysis now UF 1500ml alert, feels better BP stable no fevers, appetite adequate no new chemistries VR around 100; remains in a fib Objective - Vital Signs/Intake and Output Vital Signs (last 24 hours): Temp Pulse Resp BP Pulse Ox 98.3 F 109 H 22 114/51 L 95 07/22/18 09:22 07/22/18 10:22 07/22/18 09:22 07/22/18 10:22 07/21/18 20:00 - Medications Medications: Current Medications Acetaminophen (Tylenol 325mg Tab) 650 mg PO Q6 PRN PRN Reason: Fever >100.4 F Last Admin: 06/26/18 18:19 Dose: 650 mg Amiodarone HCl (Cordarone) 200 mg PO TID [facility] Last Admin: 07/21/18 17:27 Dose: 200 mg Apixaban (Eliquis) 2.5 mg PO Q48H [facility] Last Admin: 07/19/18 15:11 Dose: 2.5 mg Budesonide (Pulmicort Respules) 0.25 mg IH RBID [facility] Last Admin: 07/22/18 08:40 Dose: 0.25 mg Calcium Acetate (Phoslo) 667 mg PO TIDCC [facility] Last Admin: 07/21/18 17:27 Dose: 667 mg Dextrose (Dextrose 50% Inj) 0 ml IV STAT PRN; Protocol PRN Reason: Hypoglycemia Protocol Last Admin: 07/18/18 03:39 Dose: 50 ml Dextrose (Glutose 15) 0 gm PO ONCE PRN; Protocol PRN Reason: Hypoglycemia Protocol Diltiazem HCl (Cardizem Cd) 240 mg PO DAILY [facility] Last Admin: 07/21/18 09:40 Dose: 240 mg Docusate Sodium (Colace) 100 mg PO BID [facility] Last Admin: 07/21/18 17:27 Dose: 100 mg Emollient Ointment (Vaseline Oint) 5 gm TOP Q4H PRN PRN Reason: Dry skin Last Admin: 07/18/18 17:52 Dose: 5 gm Famotidine (Pepcid) 20 mg PO DAILY [facility] Last Admin: 07/21/18 09:40 Dose: 20 mg Fluticasone/Vilanterol (Breo Ellipta 200-25 Mcg Inh) 1 puff INH RQD [facility] Last Admin: 07/22/18 08:39 Dose: 1 puff Glipizide (Glucotrol) 10 mg PO ACBD [facility] Last Admin: 07/21/18 17:27 Dose: 10 mg Glucagon (Glucagen Diagnostic Kit) 0 mg IM STAT PRN; Protocol PRN Reason: Hypoglycemia Protocol Guaifenesin (Robitussin) 100 mg PO Q6H PRN PRN Reason: Cough Last Admin: 07/21/18 17:34 Dose: 100 mg Home Med (Patient's Own Drops) 1 drop OD DAILY [facility] Last Admin: 07/21/18 10:00 Dose: Not Given Micafungin Sodium 100 mg/ (Sodium Chloride) 100 mls @ 100 mls/hr IV Q24H [facility]; Protocol Last Admin: 07/21/18 16:00 Dose: 100 mls/hr Insulin Aspart (Novolog) 10 unit SC ONCE [facility] Insulin Aspart (Novolog) 0 unit SC ACHS [facility]; Protocol Last Admin: 07/21/18 21:28 Dose: Not Given Insulin Detemir (Levemir) 12 unit SC Q12H [facility] Last Admin: 07/21/18 22:54 Dose: Not Given Levothyroxine Sodium (Synthroid) 150 mcg PO DAILY@0630 [facility] Last Admin: 07/17/18 06:06 Dose: 150 mcg Polyethylene Glycol (Miralax) 17 gm PO DAILY PRN PRN Reason: Constipation Last Admin: 07/14/18 08:29 Dose: 17 gm Rosuvastatin Calcium (Crestor) 5 mg PO HS [facility] Last Admin: 07/21/18 22:53 Dose: 5 mg Tiotropium [place] (Spiriva) 18 mcg INH RQ24 [facility] Last Admin: 07/22/18 08:40 Dose: 18 mcg - Labs Labs: 07/21/18 06:13 07/21/18 06:13 - Constitutional Appears: No Acute Distress, Chronically Ill - Head Exam Head Exam: ATRAUMATIC, NORMAL INSPECTION - Eye Exam Eye Exam: EOMI, Normal appearance - Neck Exam Neck Exam: Normal Inspection. absent: Tenderness - Respiratory Exam Respiratory Exam: Clear to Ausculation Bilateral, NORMAL BREATHING PATTERN - Cardiovascular Exam Cardiovascular Exam: Tachycardia, Irregular Rhythm - GI/Abdominal Exam GI & Abdominal Exam: Soft. absent: Tenderness - Extremities Exam Extremities Exam: Normal Inspection. absent: Tenderness - Neurological Exam Neurological Exam: Awake, CN II-XII Intact - Skin Skin Exam: Dry, Warm Assessment and Plan (1) Atrial fibrillation with RVR Status: Resolved (2) CHF exacerbation Status: Acute (3) COPD exacerbation Status: Acute (4) Multiple myeloma Status: Acute - Assessment and Plan (Free Text) Plan: HR control per cardiology dialysis MWF Try EPO follow up labs
[2018-07-22] MEDS: diltiaZEM 240 mg/24 Hours CD Cap PO SCH (12:00)
[2018-07-22] MEDS: Insulin Detemir 100 units/ml Vial (Levemir) SC SCH ×2 (13:25→22:26)
[2018-07-22] MEDS: Micafungin 100 MG in Sodium Chloride 0.9% 100 ML IV SCH (15:35)
--- NOTE | 2018-07-22 18:08 | CP.PCM.PN ---
Subjective - Date & Time of Evaluation Date of Evaluation: 07/22/18 Time of Evaluation: 18:07 Objective - Vital Signs/Intake and Output Vital Signs (last 24 hours): Temp Pulse Resp BP Pulse Ox 98.5 F 100 H 20 128/38 L 100 07/22/18 12:23 07/22/18 12:23 07/22/18 12:23 07/22/18 12:23 07/22/18 12:23 - Medications Medications: Current Medications Acetaminophen (Tylenol 325mg Tab) 650 mg PO Q6 PRN PRN Reason: Fever >100.4 F Last Admin: 06/26/18 18:19 Dose: 650 mg Amiodarone HCl (Cordarone) 200 mg PO TID [facility] Last Admin: 07/22/18 13:24 Dose: 200 mg Apixaban (Eliquis) 2.5 mg PO Q48H [facility] Last Admin: 07/19/18 15:11 Dose: 2.5 mg Budesonide (Pulmicort Respules) 0.25 mg IH RBID [facility] Last Admin: 07/22/18 08:40 Dose: 0.25 mg Calcium Acetate (Phoslo) 667 mg PO TIDCC [facility] Last Admin: 07/22/18 17:45 Dose: 667 mg Dextrose (Dextrose 50% Inj) 0 ml IV STAT PRN; Protocol PRN Reason: Hypoglycemia Protocol Last Admin: 07/18/18 03:39 Dose: 50 ml Dextrose (Glutose 15) 0 gm PO ONCE PRN; Protocol PRN Reason: Hypoglycemia Protocol Diltiazem HCl (Cardizem Cd) 240 mg PO DAILY [facility] Last Admin: 07/22/18 12:00 Dose: 240 mg Docusate Sodium (Colace) 100 mg PO BID [facility] Last Admin: 07/22/18 17:45 Dose: 100 mg Emollient Ointment (Vaseline Oint) 5 gm TOP Q4H PRN PRN Reason: Dry skin Last Admin: 07/18/18 17:52 Dose: 5 gm Epoetin Eddie (Procrit) 10,000 unit IV MWF [facility] Famotidine (Pepcid) 20 mg PO DAILY [facility] Last Admin: 07/22/18 12:00 Dose: 20 mg Fluticasone/Vilanterol (Breo Ellipta 200-25 Mcg Inh) 1 puff INH RQD [facility] Last Admin: 07/22/18 08:39 Dose: 1 puff Glipizide (Glucotrol) 10 mg PO ACBD [facility] Last Admin: 07/22/18 17:00 Dose: 10 mg Glucagon (Glucagen Diagnostic Kit) 0 mg IM STAT PRN; Protocol PRN Reason: Hypoglycemia Protocol Guaifenesin (Robitussin) 100 mg PO Q6H PRN PRN Reason: Cough Last Admin: 07/21/18 17:34 Dose: 100 mg Home Med (Patient's Own Drops) 1 drop OD DAILY [facility] Last Admin: 07/22/18 10:00 Dose: 1 drop Micafungin Sodium 100 mg/ (Sodium Chloride) 100 mls @ 100 mls/hr IV Q24H [facility]; Protocol Last Admin: 07/22/18 15:35 Dose: 100 mls/hr Insulin Aspart (Novolog) 10 unit SC ONCE [facility] Insulin Aspart (Novolog) 0 unit SC ACHS [facility]; Protocol Last Admin: 07/22/18 17:00 Dose: 6 units Insulin Detemir (Levemir) 12 unit SC Q12H [facility] Last Admin: 07/22/18 13:25 Dose: Not Given Levothyroxine Sodium (Synthroid) 150 mcg PO DAILY@0630 [facility] Last Admin: 07/17/18 06:06 Dose: 150 mcg Polyethylene Glycol (Miralax) 17 gm PO DAILY PRN PRN Reason: Constipation Last Admin: 07/14/18 08:29 Dose: 17 gm Rosuvastatin Calcium (Crestor) 5 mg PO HS [facility] Last Admin: 07/21/18 22:53 Dose: 5 mg Tiotropium [place] (Spiriva) 18 mcg INH RQ24 [facility] Last Admin: 07/22/18 08:40 Dose: 18 mcg - Labs Labs: 07/21/18 06:13 07/21/18 06:13 Assessment and Plan (1) CHF exacerbation Status: Acute (2) Dyspnea Status: Acute (3) Atrial fibrillation with RVR Status: Resolved (4) COPD (chronic obstructive pulmonary disease) Status: Acute (5) ESRD (end stage renal disease) Status: Acute
--- NOTE | 2018-07-22 18:53 | CP.PCM.PN ---
Subjective - Date & Time of Evaluation Date of Evaluation: 07/22/18 - Subjective Subjective: Patient seen and examined today No nausea No vomiting No fever No diarrhea No dizziness No shortness of breath Objective - Vital Signs/Intake and Output Vital Signs (last 24 hours): Temp Pulse Resp BP Pulse Ox 98.5 F 100 H 20 128/38 L 100 07/22/18 12:23 07/22/18 12:23 07/22/18 12:23 07/22/18 12:23 07/22/18 12:23 - Medications Medications: Current Medications Acetaminophen (Tylenol 325mg Tab) 650 mg PO Q6 PRN PRN Reason: Fever >100.4 F Last Admin: 06/26/18 18:19 Dose: 650 mg Amiodarone HCl (Cordarone) 200 mg PO TID [facility] Last Admin: 07/22/18 13:24 Dose: 200 mg Apixaban (Eliquis) 2.5 mg PO Q48H [facility] Last Admin: 07/19/18 15:11 Dose: 2.5 mg Budesonide (Pulmicort Respules) 0.25 mg IH RBID [facility] Last Admin: 07/22/18 08:40 Dose: 0.25 mg Calcium Acetate (Phoslo) 667 mg PO TIDCC [facility] Last Admin: 07/22/18 17:45 Dose: 667 mg Dextrose (Dextrose 50% Inj) 0 ml IV STAT PRN; Protocol PRN Reason: Hypoglycemia Protocol Last Admin: 07/18/18 03:39 Dose: 50 ml Dextrose (Glutose 15) 0 gm PO ONCE PRN; Protocol PRN Reason: Hypoglycemia Protocol Diltiazem HCl (Cardizem Cd) 240 mg PO DAILY [facility] Last Admin: 07/22/18 12:00 Dose: 240 mg Docusate Sodium (Colace) 100 mg PO BID [facility] Last Admin: 07/22/18 17:45 Dose: 100 mg Emollient Ointment (Vaseline Oint) 5 gm TOP Q4H PRN PRN Reason: Dry skin Last Admin: 07/18/18 17:52 Dose: 5 gm Epoetin Eddie (Procrit) 10,000 unit IV MWF [facility] Famotidine (Pepcid) 20 mg PO DAILY [facility] Last Admin: 07/22/18 12:00 Dose: 20 mg Fluticasone/Vilanterol (Breo Ellipta 200-25 Mcg Inh) 1 puff INH RQD [facility] Last Admin: 07/22/18 08:39 Dose: 1 puff Glipizide (Glucotrol) 10 mg PO ACBD [facility] Last Admin: 07/22/18 17:00 Dose: 10 mg Glucagon (Glucagen Diagnostic Kit) 0 mg IM STAT PRN; Protocol PRN Reason: Hypoglycemia Protocol Guaifenesin (Robitussin) 100 mg PO Q6H PRN PRN Reason: Cough Last Admin: 07/21/18 17:34 Dose: 100 mg Home Med (Patient's Own Drops) 1 drop OD DAILY [facility] Last Admin: 07/22/18 10:00 Dose: 1 drop Micafungin Sodium 100 mg/ (Sodium Chloride) 100 mls @ 100 mls/hr IV Q24H [facility]; Protocol Last Admin: 07/22/18 15:35 Dose: 100 mls/hr Insulin Aspart (Novolog) 10 unit SC ONCE [facility] Insulin Aspart (Novolog) 0 unit SC ACHS [facility]; Protocol Last Admin: 07/22/18 17:00 Dose: 6 units Insulin Detemir (Levemir) 12 unit SC Q12H [facility] Last Admin: 07/22/18 13:25 Dose: Not Given Levothyroxine Sodium (Synthroid) 150 mcg PO DAILY@0630 [facility] Last Admin: 07/17/18 06:06 Dose: 150 mcg Polyethylene Glycol (Miralax) 17 gm PO DAILY PRN PRN Reason: Constipation Last Admin: 07/14/18 08:29 Dose: 17 gm Rosuvastatin Calcium (Crestor) 5 mg PO HS [facility] Last Admin: 07/21/18 22:53 Dose: 5 mg Tiotropium [place] (Spiriva) 18 mcg INH RQ24 [facility] Last Admin: 07/22/18 08:40 Dose: 18 mcg - Labs Labs: 07/21/18 06:13 07/21/18 06:13 - Constitutional Appears: Well - Head Exam Head Exam: ATRAUMATIC, NORMAL INSPECTION, NORMOCEPHALIC - Eye Exam Eye Exam: EOMI, Normal appearance, PERRL Pupil Exam: NORMAL ACCOMODATION, PERRL - ENT Exam ENT Exam: Mucous Membranes Moist, Normal Exam - Neck Exam Neck Exam: Full ROM, Normal Inspection. absent: Lymphadenopathy - Respiratory Exam Respiratory Exam: Decreased Breath Sounds - Cardiovascular Exam Cardiovascular Exam: REGULAR RHYTHM, +S1, +S2 - GI/Abdominal Exam GI & Abdominal Exam: Soft, Diminished Bowel Sounds - Rectal Exam Rectal Exam: Deferred - Neurological Exam Neurological Exam: Oriented x3 Assessment and Plan (1) CHF exacerbation Status: Acute (2) Dyspnea Status: Acute (3) ESRD (end stage renal disease) on dialysis Status: Acute (4) Uncontrolled diabetes mellitus Status: Acute (5) MARIA EUGENIA (acute kidney injury) Status: Acute (6) Abdominal pain Status: Acute (7) Acute bronchitis Status: Acute (8) Acute kidney injury Status: Acute (9) Acute kidney injury superimposed on chronic kidney disease Status: Acute (10) Acute respiratory failure Status: Acute (11) Anemia Status: Acute (12) Anemia of chronic disease Status: Acute (13) Atrial fibrillation with controlled ventricular response Status: Acute (14) Back pain of thoracolumbar region Status: Acute (15) Bronchitis Status: Acute (16) Bronchitis Status: Acute (17) CHF (congestive heart failure) Status: Acute (18) CHF (congestive heart failure) Status: Acute (19) CKD (chronic kidney disease) stage 3, GFR 30-59 ml/min Status: Acute (20) COPD (chronic obstructive pulmonary disease) Status: Acute (21) COPD exacerbation Status: Acute (22) COPD exacerbation Status: Acute (23) Chest pain Status: Acute (24) ESR raised Status: Acute (25) ESRD (end stage renal disease) Status: Acute (26) Fluid overload Status: Acute (27) Fluid overload, unspecified Status: Acute (28) Gastritis Status: Acute (29) Hepatitis Status: Acute (30) History of asthma Status: Acute (31) History of atrial fibrillation Status: Acute (32) History of back pain Status: Acute (33) History of gastroesophageal reflux (GERD) Status: Acute (34) Hypercalcemia Status: Acute (35) Hyperlipemia Status: Acute (36) Influenza Status: Acute (37) Leucocytosis Status: Acute (38) Lower extremity pain Status: Acute (39) Multiple myeloma Status: Acute (40) Multiple myeloma Status: Acute (41) Myeloma Status: Acute (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 (43) Occult gastrointestinal hemorrhage Status: Acute (44) Paroxysmal A-fib Status: Acute (45) Pneumonia Status: Acute (46) Prophylactic measure Status: Acute (47) Pulmonary hypertension Status: Acute (48) Pulmonary hypertension Status: Acute (49) Renal failure Status: Acute (50) Respiratory tract infection Status: Acute (51) Streptococcus pneumoniae Status: Acute (52) Symptomatic anemia Status: Acute (53) Vertigo Status: Acute (54) Worsening renal function Status: Acute (55) Anemia Status: Chronic (56) Asthma Status: Chronic (57) Atrial fibrillation Status: Chronic (58) Chronic diastolic (congestive) heart failure Status: Chronic (59) Diabetes Status: Chronic (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 Tylenol Cordarone Eliquis Budesonide Phoslo Dextrose Cardizem CD Colace Vaseline ointment Procrit Pepcid Breo elliptical Glucotrol Glucagon Robitussin NovoLog Levemir Synthroid Miralax Crestor Spiriva
[2018-07-23 06:35] LABS: HEMOGLOBIN 8.4 g/dL (11.0-16.0); MEAN CELL VOLUME 87.8 fL (81.0-99.0); MEAN CORPUSCULAR HEMOGLOBIN 28.4 pg (27.0-31.0); MEAN CORPUSCULAR HGB CONC 32.4 g/dL (33.0-37.0); MEAN PLATELET VOLUME 10.5 fL (7.2-11.7); RBC 2.96 Mil/uL (3.80-5.20); RED CELL DISTRIBUTION WIDTH 16.3 % (11.5-14.5); WHITE BLOOD COUNT 5.5 K/uL (4.8-10.8)
[2018-07-23 07:19] LABS: ALBUMIN 2.5 g/dL (3.5-5.0); ALT/SGPT 67 U/L (9-52); AST/SGOT 43 U/L (14-36); BLOOD UREA NITROGEN 41 mg/dL (7-17); CALCIUM 7.6 mg/dl (8.6-10.4); GFR NON-AFRICAN AMERICAN 16
[2018-07-23] MEDS: (Novolog) Insulin Aspart, Recombinant 100 u/ml 10 ml vial SC SCH ×4 (07:53→21:52)
[2018-07-23] MEDS: Fluticasone-Vilanterol 200/25mcg Diskus INH SCH ×2 (08:15→09:15)
[2018-07-23] MEDS: Tiotropium 18 mcg Cap For Inhalation INH SCH (08:15)
--- NOTE | 2018-07-23 08:31 | CP.PCM.PN ---
Subjective - Date & Time of Evaluation Date of Evaluation: 07/23/18 Time of Evaluation: 08:30 - Subjective Subjective: afebrile bp stable awake alert comfortable eating breakfast cbc chems noted notes read ROS no dizziness no chest pain palpitations no sob or cough no abd pain nauseau,no vomiting or diarrhea no dysuria no headache Objective - Vital Signs/Intake and Output Vital Signs (last 24 hours): Temp Pulse Resp BP Pulse Ox 98.3 F 85 32 H 123/57 L 99 07/23/18 04:00 07/23/18 04:00 07/23/18 04:00 07/23/18 04:00 07/23/18 04:00 Intake and Output: 07/23/18 07/23/18 06:59 18:59 Intake Total 480 Output Total 0 Balance 480 - Medications Medications: Current Medications Acetaminophen (Tylenol 325mg Tab) 650 mg PO Q6 PRN PRN Reason: Fever >100.4 F Last Admin: 06/26/18 18:19 Dose: 650 mg Amiodarone HCl (Cordarone) 200 mg PO TID [facility] Last Admin: 07/22/18 18:04 Dose: 200 mg Apixaban (Eliquis) 2.5 mg PO Q48H [facility] Last Admin: 07/19/18 15:11 Dose: 2.5 mg Calcium Acetate (Phoslo) 667 mg PO TIDCC [facility] Last Admin: 07/23/18 07:52 Dose: 667 mg Dextrose (Dextrose 50% Inj) 0 ml IV STAT PRN; Protocol PRN Reason: Hypoglycemia Protocol Last Admin: 07/18/18 03:39 Dose: 50 ml Dextrose (Glutose 15) 0 gm PO ONCE PRN; Protocol PRN Reason: Hypoglycemia Protocol Diltiazem HCl (Cardizem Cd) 240 mg PO DAILY [facility] Last Admin: 07/22/18 12:00 Dose: 240 mg Docusate Sodium (Colace) 100 mg PO BID [facility] Last Admin: 07/22/18 17:45 Dose: 100 mg Emollient Ointment (Vaseline Oint) 5 gm TOP Q4H PRN PRN Reason: Dry skin Last Admin: 07/18/18 17:52 Dose: 5 gm Epoetin Eddie (Procrit) 10,000 unit IV MWF [facility] Famotidine (Pepcid) 20 mg PO DAILY [facility] Last Admin: 07/22/18 12:00 Dose: 20 mg Fluticasone/Vilanterol (Breo Ellipta 200-25 Mcg Inh) 1 puff INH RQD [facility] Last Admin: 07/22/18 08:39 Dose: 1 puff Glipizide (Glucotrol) 10 mg PO ACBD [facility] Last Admin: 07/23/18 07:52 Dose: 10 mg Glucagon (Glucagen Diagnostic Kit) 0 mg IM STAT PRN; Protocol PRN Reason: Hypoglycemia Protocol Guaifenesin (Robitussin) 100 mg PO Q6H PRN PRN Reason: Cough Last Admin: 07/21/18 17:34 Dose: 100 mg Home Med (Patient's Own Drops) 1 drop OD DAILY [facility] Last Admin: 07/22/18 10:00 Dose: 1 drop Micafungin Sodium 100 mg/ (Sodium Chloride) 100 mls @ 100 mls/hr IV Q24H [facility]; Protocol Last Admin: 07/22/18 15:35 Dose: 100 mls/hr Insulin Aspart (Novolog) 10 unit SC ONCE [facility] Insulin Aspart (Novolog) 0 unit SC ACHS [facility]; Protocol Last Admin: 07/23/18 07:53 Dose: 8 units Insulin Detemir (Levemir) 12 unit SC Q12H [facility] Last Admin: 07/22/18 22:26 Dose: Not Given Levothyroxine Sodium (Synthroid) 150 mcg PO DAILY@0630 [facility] Last Admin: 07/17/18 06:06 Dose: 150 mcg Polyethylene Glycol (Miralax) 17 gm PO DAILY PRN PRN Reason: Constipation Last Admin: 07/14/18 08:29 Dose: 17 gm Rosuvastatin Calcium (Crestor) 5 mg PO HS [facility] Last Admin: 07/22/18 22:25 Dose: 5 mg Tiotropium [place] (Spiriva) 18 mcg INH RQ24 [facility] Last Admin: 07/22/18 08:40 Dose: 18 mcg - Labs Labs: 07/23/18 06:20 07/23/18 06:20 - Constitutional Appears: No Acute Distress - Eye Exam Eye Exam: Normal appearance - ENT Exam ENT Exam: Mucous Membranes Moist - Respiratory Exam Respiratory Exam: Clear to Ausculation Bilateral, NORMAL BREATHING PATTERN - Cardiovascular Exam Cardiovascular Exam: Irregular Rhythm - GI/Abdominal Exam GI & Abdominal Exam: Soft. absent: Distended, Tenderness - Extremities Exam Extremities Exam: absent: Calf Tenderness - Neurological Exam Neurological Exam: Alert, Awake - Psychiatric Exam Psychiatric exam: Normal Affect - Skin Skin Exam: Dry, Warm Assessment and Plan (1) ESRD (end stage renal disease) on dialysis Status: Acute (2) Paroxysmal atrial fibrillation Status: Acute (3) COPD (chronic obstructive pulmonary disease) Status: Acute - Assessment and Plan (Free Text) Plan: schedule dialysis for 07/24 orders written continue to ultrafiltrate follow cardiology recommendations rani weekly
[2018-07-23 08:40] LABS: FERRITIN > 5000.0 ng/mL
[2018-07-23] MEDS: diltiaZEM 240 mg/24 Hours CD Cap PO SCH (09:49)
[2018-07-23] MEDS: BROMFENAC 0.07% OD SCH (09:50)
[2018-07-23] MEDS: guaiFENesin 100 mg/5 ml Syrup UD PO PRN (09:51)
[2018-07-23] MEDS: Insulin Detemir 100 units/ml Vial (Levemir) SC SCH ×2 (10:35→22:40)
--- NOTE | 2018-07-23 12:03 | CP.PCM.PN ---
Subjective - Date & Time of Evaluation Date of Evaluation: 07/23/18 Time of Evaluation: 09:00 - Subjective Subjective: afebrile awake alert NAD no new positive cultures Objective - Vital Signs/Intake and Output Vital Signs (last 24 hours): Temp Pulse Resp BP Pulse Ox 97.9 F 71 20 104/58 L 98 07/23/18 11:05 07/23/18 11:05 07/23/18 11:05 07/23/18 11:05 07/23/18 11:05 Intake and Output: 07/23/18 07/23/18 06:59 18:59 Intake Total 480 Output Total 0 Balance 480 - Medications Medications: Current Medications Acetaminophen (Tylenol 325mg Tab) 650 mg PO Q6 PRN PRN Reason: Fever >100.4 F Last Admin: 06/26/18 18:19 Dose: 650 mg Amiodarone HCl (Cordarone) 200 mg PO TID [facility] Last Admin: 07/23/18 09:49 Dose: 200 mg Apixaban (Eliquis) 2.5 mg PO Q48H [facility] [place] Last Admin: 07/19/18 15:11 Dose: 2.5 mg Calcium Acetate (Phoslo) 667 mg PO TIDCC [facility] [place] Last Admin: 07/23/18 07:52 Dose: 667 mg Dextrose (Dextrose 50% Inj) 0 ml IV STAT PRN; Protocol PRN Reason: Hypoglycemia Protocol Last Admin: 07/18/18 03:39 Dose: 50 ml Dextrose (Glutose 15) 0 gm PO ONCE PRN; Protocol PRN Reason: Hypoglycemia Protocol Diltiazem HCl (Cardizem Cd) 240 mg PO DAILY [facility] [place] Last Admin: 07/23/18 09:49 Dose: 240 mg Docusate Sodium (Colace) 100 mg PO BID [facility] [place] Last Admin: 07/23/18 09:55 Dose: Not Given Emollient Ointment (Vaseline Oint) 5 gm TOP Q4H PRN PRN Reason: Dry skin Last Admin: 07/18/18 17:52 Dose: 5 gm Epoetin Eddie (Procrit) 10,000 unit IV MWF [facility] [place] Famotidine (Pepcid) 20 mg PO DAILY [facility] [place] Last Admin: 07/23/18 09:51 Dose: 20 mg Fluticasone/Vilanterol (Breo Ellipta 200-25 Mcg Inh) 1 puff INH RQD [facility] [place] Last Admin: 07/23/18 09:15 Dose: 1 puff Glipizide (Glucotrol) 10 mg PO ACBD [facility] [place] Last Admin: 07/23/18 07:52 Dose: 10 mg Glucagon (Glucagen Diagnostic Kit) 0 mg IM STAT PRN; Protocol PRN Reason: Hypoglycemia Protocol Guaifenesin (Robitussin) 100 mg PO Q6H PRN PRN Reason: Cough Last Admin: 07/23/18 09:51 Dose: 100 mg Home Med (Patient's Own Drops) 1 drop OD DAILY [facility] [place] Last Admin: 07/23/18 09:50 Dose: 1 drop Micafungin Sodium 100 mg/ (Sodium Chloride) 100 mls @ 100 mls/hr IV Q24H [facility] [place]; Protocol Last Admin: 07/22/18 15:35 Dose: 100 mls/hr Insulin Aspart (Novolog) 10 unit SC ONCE [facility] Insulin Aspart (Novolog) 0 unit SC ACHS [facility] [place]; Protocol Last Admin: 07/23/18 07:53 Dose: 8 units Insulin Detemir (Levemir) 12 unit SC Q12H [facility] [place] Last Admin: 07/23/18 10:35 Dose: Not Given Levothyroxine Sodium (Synthroid) 150 mcg PO DAILY@0630 [facility] [place] Last Admin: 07/17/18 06:06 Dose: 150 mcg Polyethylene Glycol (Miralax) 17 gm PO DAILY PRN PRN Reason: Constipation Last Admin: 07/14/18 08:29 Dose: 17 gm Rosuvastatin Calcium (Crestor) 5 mg PO HS [facility] [place] Last Admin: 07/22/18 22:25 Dose: 5 mg Tiotropium [place] (Spiriva) 18 mcg INH RQ24 [facility] [place] Last Admin: 07/23/18 08:15 Dose: 18 mcg - Labs Labs: 07/23/18 06:20 07/23/18 06:20 - Constitutional Appears: Non-toxic, Chronically Ill - Head Exam Head Exam: ATRAUMATIC, NORMAL INSPECTION, NORMOCEPHALIC - Eye Exam Eye Exam: EOMI, Normal appearance, PERRL Pupil Exam: NORMAL ACCOMODATION, PERRL - ENT Exam ENT Exam: Mucous Membranes Moist, Normal Exam - Neck Exam Neck Exam: Full ROM, Normal Inspection. absent: Lymphadenopathy - Respiratory Exam Respiratory Exam: Clear to Ausculation Bilateral, NORMAL BREATHING PATTERN - Cardiovascular Exam Cardiovascular Exam: REGULAR RHYTHM, +S1, +S2. absent: Murmur - GI/Abdominal Exam GI & Abdominal Exam: Soft, Normal Bowel Sounds. absent: Tenderness - Rectal Exam Rectal Exam: Deferred - Exam Exam: NORMAL INSPECTION - Extremities Exam Extremities Exam: Full ROM, Normal Capillary Refill, Normal Inspection. absent: Joint Swelling, Pedal Edema - Back Exam Back Exam: NORMAL INSPECTION - Neurological Exam Neurological Exam: Alert, Awake, CN II-XII Intact, Normal Gait, Oriented x3 - Psychiatric Exam Psychiatric exam: Normal Affect, Normal Mood - Skin Skin Exam: Dry, Intact, Normal Color, Warm Assessment and Plan (1) CHF exacerbation Status: Acute (2) Chronic a-fib Status: Acute (3) Dyspnea Status: Acute (4) ESRD (end stage renal disease) on dialysis Status: Acute (5) Uncontrolled diabetes mellitus Status: Acute - Assessment and Plan (Free Text) Assessment: d/c mycamine observe
--- NOTE | 2018-07-23 16:34 | CP.PCM.PN ---
Subjective - Date & Time of Evaluation Date of Evaluation: 07/23/18 Time of Evaluation: 16:34 Objective - Vital Signs/Intake and Output Vital Signs (last 24 hours): Temp Pulse Resp BP Pulse Ox 97.9 F 71 20 104/58 L 98 07/23/18 11:05 07/23/18 11:05 07/23/18 11:05 07/23/18 11:05 07/23/18 11:05 Intake and Output: 07/23/18 07/23/18 06:59 18:59 Intake Total 480 Output Total 0 Balance 480 - Medications Medications: Current Medications Acetaminophen (Tylenol 325mg Tab) 650 mg PO Q6 PRN PRN Reason: Fever >100.4 F Last Admin: 06/26/18 18:19 Dose: 650 mg Amiodarone HCl (Cordarone) 200 mg PO TID [facility] Last Admin: 07/23/18 13:26 Dose: 200 mg Apixaban (Eliquis) 2.5 mg PO Q48H [facility] Last Admin: 07/19/18 15:11 Dose: 2.5 mg Calcium Acetate (Phoslo) 667 mg PO TIDCC [facility] Last Admin: 07/23/18 13:26 Dose: 667 mg Dextrose (Dextrose 50% Inj) 0 ml IV STAT PRN; Protocol PRN Reason: Hypoglycemia Protocol Last Admin: 07/18/18 03:39 Dose: 50 ml Dextrose (Glutose 15) 0 gm PO ONCE PRN; Protocol PRN Reason: Hypoglycemia Protocol Diltiazem HCl (Cardizem Cd) 240 mg PO DAILY [facility] Last Admin: 07/23/18 09:49 Dose: 240 mg Docusate Sodium (Colace) 100 mg PO BID [facility] Last Admin: 07/23/18 09:55 Dose: Not Given Emollient Ointment (Vaseline Oint) 5 gm TOP Q4H PRN PRN Reason: Dry skin Last Admin: 07/18/18 17:52 Dose: 5 gm Epoetin Eddie (Procrit) 10,000 unit IV MWF [facility] Famotidine (Pepcid) 20 mg PO DAILY [facility] Last Admin: 07/23/18 09:51 Dose: 20 mg Fluticasone/Vilanterol (Breo Ellipta 200-25 Mcg Inh) 1 puff INH RQD [facility] Last Admin: 07/23/18 09:15 Dose: 1 puff Glipizide (Glucotrol) 10 mg PO ACBD [facility] Last Admin: 07/23/18 07:52 Dose: 10 mg Glucagon (Glucagen Diagnostic Kit) 0 mg IM STAT PRN; Protocol PRN Reason: Hypoglycemia Protocol Guaifenesin (Robitussin) 100 mg PO Q6H PRN PRN Reason: Cough Last Admin: 07/23/18 09:51 Dose: 100 mg Home Med (Patient's Own Drops) 1 drop OD DAILY [facility] Last Admin: 07/23/18 09:50 Dose: 1 drop Insulin Aspart (Novolog) 10 unit SC ONCE [facility] Insulin Aspart (Novolog) 0 unit SC ACHS [facility]; Protocol Last Admin: 07/23/18 13:26 Dose: Not Given Insulin Detemir (Levemir) 12 unit SC Q12H [facility] Last Admin: 07/23/18 10:35 Dose: Not Given Levothyroxine Sodium (Synthroid) 150 mcg PO DAILY@0630 [facility] Last Admin: 07/17/18 06:06 Dose: 150 mcg Polyethylene Glycol (Miralax) 17 gm PO DAILY PRN PRN Reason: Constipation Last Admin: 07/14/18 08:29 Dose: 17 gm Rosuvastatin Calcium (Crestor) 5 mg PO HS [facility] Last Admin: 07/22/18 22:25 Dose: 5 mg Tiotropium [place] (Spiriva) 18 mcg INH RQ24 [facility] Last Admin: 07/23/18 08:15 Dose: 18 mcg - Labs Labs: 07/23/18 06:20 07/23/18 06:20 Assessment and Plan (1) CHF exacerbation Status: Acute (2) Dyspnea Status: Acute (3) Atrial fibrillation with RVR Status: Resolved (4) COPD (chronic obstructive pulmonary disease) Status: Acute (5) ESRD (end stage renal disease) Status: Acute
--- NOTE | 2018-07-23 18:50 | CP.PCM.PN ---
Subjective - Date & Time of Evaluation Date of Evaluation: 07/23/18 - Subjective Subjective: patient seen at bedside no nausea no vomitng no dizzines no fever no diarrhea no sob Objective - Vital Signs/Intake and Output Vital Signs (last 24 hours): Temp Pulse Resp BP Pulse Ox 97.9 F 90 18 137/60 92 L 07/23/18 17:29 07/23/18 17:29 07/23/18 17:29 07/23/18 17:29 07/23/18 17:29 Intake and Output: 07/23/18 07/23/18 06:59 18:59 Intake Total 480 Output Total 0 Balance 480 - Medications Medications: Current Medications Acetaminophen (Tylenol 325mg Tab) 650 mg PO Q6 PRN PRN Reason: Fever >100.4 F Last Admin: 06/26/18 18:19 Dose: 650 mg Amiodarone HCl (Cordarone) 200 mg PO TID [facility] Last Admin: 07/23/18 17:45 Dose: 200 mg Apixaban (Eliquis) 2.5 mg PO Q48H [facility] Last Admin: 07/19/18 15:11 Dose: 2.5 mg Calcium Acetate (Phoslo) 667 mg PO TIDCC [facility] Last Admin: 07/23/18 17:46 Dose: 667 mg Dextrose (Dextrose 50% Inj) 0 ml IV STAT PRN; Protocol PRN Reason: Hypoglycemia Protocol Last Admin: 07/18/18 03:39 Dose: 50 ml Dextrose (Glutose 15) 0 gm PO ONCE PRN; Protocol PRN Reason: Hypoglycemia Protocol Diltiazem HCl (Cardizem Cd) 240 mg PO DAILY [facility] Last Admin: 07/23/18 09:49 Dose: 240 mg Docusate Sodium (Colace) 100 mg PO BID [facility] Last Admin: 07/23/18 17:45 Dose: 100 mg Emollient Ointment (Vaseline Oint) 5 gm TOP Q4H PRN PRN Reason: Dry skin Last Admin: 07/18/18 17:52 Dose: 5 gm Epoetin Eddie (Procrit) 10,000 unit IV MWF [facility] Famotidine (Pepcid) 20 mg PO DAILY [facility] Last Admin: 07/23/18 09:51 Dose: 20 mg Fluticasone/Vilanterol (Breo Ellipta 200-25 Mcg Inh) 1 puff INH RQD [facility] Last Admin: 07/23/18 09:15 Dose: 1 puff Glipizide (Glucotrol) 10 mg PO ACBD [facility] Last Admin: 07/23/18 17:30 Dose: 10 mg Glucagon (Glucagen Diagnostic Kit) 0 mg IM STAT PRN; Protocol PRN Reason: Hypoglycemia Protocol Guaifenesin (Robitussin) 100 mg PO Q6H PRN PRN Reason: Cough Last Admin: 07/23/18 09:51 Dose: 100 mg Home Med (Patient's Own Drops) 1 drop OD DAILY [facility] Last Admin: 07/23/18 09:50 Dose: 1 drop Insulin Aspart (Novolog) 10 unit SC ONCE MARIBETH Insulin Aspart (Novolog) 0 unit SC ACHS [facility]; Protocol Last Admin: 07/23/18 17:42 Dose: 10 units Insulin Detemir (Levemir) 12 unit SC Q12H [facility] Last Admin: 07/23/18 10:35 Dose: Not Given Levothyroxine Sodium (Synthroid) 150 mcg PO DAILY@0630 [facility] Last Admin: 07/17/18 06:06 Dose: 150 mcg Polyethylene Glycol (Miralax) 17 gm PO DAILY PRN PRN Reason: Constipation Last Admin: 07/14/18 08:29 Dose: 17 gm Rosuvastatin Calcium (Crestor) 5 mg PO HS [facility] Last Admin: 07/22/18 22:25 Dose: 5 mg Tiotropium [place] (Spiriva) 18 mcg INH RQ24 [facility] Last Admin: 07/23/18 08:15 Dose: 18 mcg - Labs Labs: 07/23/18 06:20 07/23/18 06:20 - Constitutional Appears: Well - Head Exam Head Exam: ATRAUMATIC, NORMAL INSPECTION, NORMOCEPHALIC - Eye Exam Eye Exam: EOMI, Normal appearance, PERRL Pupil Exam: NORMAL ACCOMODATION, PERRL - ENT Exam ENT Exam: Mucous Membranes Moist, Normal Exam - Neck Exam Neck Exam: Full ROM, Normal Inspection. absent: Lymphadenopathy - Respiratory Exam Respiratory Exam: Decreased Breath Sounds - Cardiovascular Exam Cardiovascular Exam: REGULAR RHYTHM, +S1, +S2 - GI/Abdominal Exam GI & Abdominal Exam: Soft, Diminished Bowel Sounds - Rectal Exam Rectal Exam: Deferred - Neurological Exam Neurological Exam: Oriented x3 Assessment and Plan (1) CHF exacerbation Status: Acute (2) Dyspnea Status: Acute (3) ESRD (end stage renal disease) on dialysis Status: Acute (4) Uncontrolled diabetes mellitus Status: Acute (5) MARIA EUGENIA (acute kidney injury) Status: Acute (6) Abdominal pain Status: Acute (7) Acute bronchitis Status: Acute (8) Acute kidney injury Status: Acute (9) Acute kidney injury superimposed on chronic kidney disease Status: Acute (10) Acute respiratory failure Status: Acute (11) Anemia Status: Acute (12) Anemia of chronic disease Status: Acute (13) Atrial fibrillation with controlled ventricular response Status: Acute (14) Back pain of thoracolumbar region Status: Acute (15) Bronchitis Status: Acute (16) Bronchitis Status: Acute (17) CHF (congestive heart failure) Status: Acute (18) CHF (congestive heart failure) Status: Acute (19) CKD (chronic kidney disease) stage 3, GFR 30-59 ml/min Status: Acute (20) COPD (chronic obstructive pulmonary disease) Status: Acute (21) COPD exacerbation Status: Acute (22) COPD exacerbation Status: Acute (23) Chest pain Status: Acute (24) ESR raised Status: Acute (25) ESRD (end stage renal disease) Status: Acute (26) Fluid overload Status: Acute (27) Fluid overload, unspecified Status: Acute (28) Gastritis Status: Acute (29) Hepatitis Status: Acute (30) History of asthma Status: Acute (31) History of atrial fibrillation Status: Acute (32) History of back pain Status: Acute (33) History of gastroesophageal reflux (GERD) Status: Acute (34) Hypercalcemia Status: Acute (35) Hyperlipemia Status: Acute (36) Influenza Status: Acute (37) Leucocytosis Status: Acute (38) Lower extremity pain Status: Acute (39) Multiple myeloma Status: Acute (40) Multiple myeloma Status: Acute (41) Myeloma Status: Acute (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 (43) Occult gastrointestinal hemorrhage Status: Acute (44) Paroxysmal A-fib Status: Acute (45) Pneumonia Status: Acute (46) Prophylactic measure Status: Acute (47) Pulmonary hypertension Status: Acute (48) Pulmonary hypertension Status: Acute (49) Renal failure Status: Acute (50) Respiratory tract infection Status: Acute (51) Streptococcus pneumoniae Status: Acute (52) Symptomatic anemia Status: Acute (53) Vertigo Status: Acute (54) Worsening renal function Status: Acute (55) Anemia Status: Chronic (56) Asthma Status: Chronic (57) Atrial fibrillation Status: Chronic (58) Chronic diastolic (congestive) heart failure Status: Chronic (59) Diabetes Status: Chronic (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 breo ellipta cardizem cd colace crestor dextrose 50%inj eliquis glucagen diagnostic kit glucotrol glutose 15 levemir miralax novolog patients own drops pepcid phoslo procrit robitussin spiriva synthroid tylenol vaseline ointment
[2018-07-24] MEDS: (Novolog) Insulin Aspart, Recombinant 100 u/ml 10 ml vial SC SCH ×4 (07:15→21:35)
--- NOTE | 2018-07-24 07:20 | CP.PCM.PN ---
Subjective - Date & Time of Evaluation Date of Evaluation: 07/24/18 Time of Evaluation: 07:17 - Subjective Subjective: chronically ill chronic dyspnea not walking back pain oliguic appetite fair no fever or chills no n/v/d no cough irregular heart rate no rash easy bruising no headache HD today Objective - Vital Signs/Intake and Output Vital Signs (last 24 hours): Temp Pulse Resp BP Pulse Ox 98.1 F 71 20 104/76 95 07/24/18 00:00 07/24/18 00:00 07/24/18 00:00 07/24/18 00:00 07/24/18 00:00 - Medications Medications: Current Medications Acetaminophen (Tylenol 325mg Tab) 650 mg PO Q6 PRN PRN Reason: Fever >100.4 F Last Admin: 06/26/18 18:19 Dose: 650 mg Amiodarone HCl (Cordarone) 200 mg PO TID [facility] Last Admin: 07/23/18 17:45 Dose: 200 mg Apixaban (Eliquis) 2.5 mg PO Q48H [facility] Last Admin: 07/19/18 15:11 Dose: 2.5 mg Calcium Acetate (Phoslo) 667 mg PO TIDCC [facility] Last Admin: 07/23/18 17:46 Dose: 667 mg Dextrose (Dextrose 50% Inj) 0 ml IV STAT PRN; Protocol PRN Reason: Hypoglycemia Protocol Last Admin: 07/18/18 03:39 Dose: 50 ml Dextrose (Glutose 15) 0 gm PO ONCE PRN; Protocol PRN Reason: Hypoglycemia Protocol Diltiazem HCl (Cardizem Cd) 240 mg PO DAILY [facility] Last Admin: 07/23/18 09:49 Dose: 240 mg Docusate Sodium (Colace) 100 mg PO BID [facility] Last Admin: 07/23/18 17:45 Dose: 100 mg Emollient Ointment (Vaseline Oint) 5 gm TOP Q4H PRN PRN Reason: Dry skin Last Admin: 07/18/18 17:52 Dose: 5 gm Epoetin Eddie (Procrit) 10,000 unit IV MWF [facility] Famotidine (Pepcid) 20 mg PO DAILY [facility] Last Admin: 07/23/18 09:51 Dose: 20 mg Fluticasone/Vilanterol (Breo Ellipta 200-25 Mcg Inh) 1 puff INH RQD [facility] Last Admin: 07/23/18 09:15 Dose: 1 puff Glipizide (Glucotrol) 10 mg PO ACBD [facility] Last Admin: 07/23/18 17:30 Dose: 10 mg Glucagon (Glucagen Diagnostic Kit) 0 mg IM STAT PRN; Protocol PRN Reason: Hypoglycemia Protocol Guaifenesin (Robitussin) 100 mg PO Q6H PRN PRN Reason: Cough Last Admin: 07/23/18 09:51 Dose: 100 mg Home Med (Patient's Own Drops) 1 drop OD DAILY [facility] Last Admin: 07/23/18 09:50 Dose: 1 drop Insulin Aspart (Novolog) 10 unit SC ONCE MARIBETH Insulin Aspart (Novolog) 0 unit SC ACHS [facility]; Protocol Last Admin: 07/24/18 07:15 Dose: Not Given Insulin Detemir (Levemir) 12 unit SC Q12H [facility] Last Admin: 07/23/18 22:40 Dose: Not Given Levothyroxine Sodium (Synthroid) 150 mcg PO DAILY@0630 [facility] Last Admin: 07/17/18 06:06 Dose: 150 mcg Polyethylene Glycol (Miralax) 17 gm PO DAILY PRN PRN Reason: Constipation Last Admin: 07/14/18 08:29 Dose: 17 gm Rosuvastatin Calcium (Crestor) 5 mg PO HS [facility] Last Admin: 07/23/18 22:39 Dose: 5 mg Tiotropium [place] (Spiriva) 18 mcg INH RQ24 [facility] Last Admin: 07/23/18 08:15 Dose: 18 mcg - Labs Labs: 07/23/18 06:20 07/23/18 06:20 - Constitutional Appears: Non-toxic, Chronically Ill - Head Exam Head Exam: ATRAUMATIC, NORMAL INSPECTION - Eye Exam Eye Exam: EOMI, Normal appearance - ENT Exam ENT Exam: Mucous Membranes Moist - Neck Exam Neck Exam: Full ROM. absent: Lymphadenopathy - Respiratory Exam Respiratory Exam: Wheezes. absent: Accessory Muscle Use - Cardiovascular Exam Cardiovascular Exam: Irregular Rhythm. absent: Rubs - GI/Abdominal Exam GI & Abdominal Exam: Distended, Soft. absent: Guarding - Extremities Exam Extremities Exam: Pedal Edema Assessment and Plan - Assessment and Plan (Free Text) Assessment: dialysis dependent svt copd myeloma failure to thrive HD today continue pulmonary toilet rx for afib PT aggressive nutrition
[2018-07-24] MEDS: Fluticasone-Vilanterol 200/25mcg Diskus INH SCH (08:14)
[2018-07-24] MEDS: Tiotropium 18 mcg Cap For Inhalation INH SCH (08:18)
[2018-07-24] MEDS ORDERED: EPOETIN ALFA 10,000 UNIT/ML ML IV SCH (09:00)
[2018-07-24] MEDS: Insulin Detemir 100 units/ml Vial (Levemir) SC SCH ×2 (10:31→23:56)
[2018-07-24] MEDS: diltiaZEM 240 mg/24 Hours CD Cap PO SCH (10:31)
[2018-07-24] MEDS: BROMFENAC 0.07% OD SCH (12:27)
[2018-07-24] MEDS ORDERED: Epoetin Alfa 10,000 unit/ml Dialysis IV SCH (14:00)
--- NOTE | 2018-07-24 16:10 | CP.PCM.PN ---
Subjective - Date & Time of Evaluation Date of Evaluation: 07/24/18 Time of Evaluation: 13:30 - Subjective Subjective: Pt was on her way down to dialysis off telemetry, but pulse was regular. No new complaints. Objective - Vital Signs/Intake and Output Vital Signs (last 24 hours): Temp Pulse Resp BP Pulse Ox 97.5 F L 82 20 91/54 L 96 07/24/18 12:50 07/24/18 15:20 07/24/18 15:20 07/24/18 15:20 07/24/18 15:20 Intake and Output: 07/24/18 07/24/18 06:59 18:59 Intake Total 600 Balance 600 - Medications Medications: Current Medications Acetaminophen (Tylenol 325mg Tab) 650 mg PO Q6 PRN PRN Reason: Fever >100.4 F Last Admin: 06/26/18 18:19 Dose: 650 mg Amiodarone HCl (Cordarone) 200 mg PO TID [facility] Last Admin: 07/24/18 13:47 Dose: Not Given Apixaban (Eliquis) 2.5 mg PO Q48H [facility] Last Admin: 07/19/18 15:11 Dose: 2.5 mg Calcium Acetate (Phoslo) 667 mg PO TIDCC [facility] Last Admin: 07/24/18 12:05 Dose: 667 mg Dextrose (Dextrose 50% Inj) 0 ml IV STAT PRN; Protocol PRN Reason: Hypoglycemia Protocol Last Admin: 07/18/18 03:39 Dose: 50 ml Dextrose (Glutose 15) 0 gm PO ONCE PRN; Protocol PRN Reason: Hypoglycemia Protocol Diltiazem HCl (Cardizem Cd) 240 mg PO DAILY [facility] Last Admin: 07/24/18 10:31 Dose: Not Given Docusate Sodium (Colace) 100 mg PO BID [facility] Last Admin: 07/24/18 10:31 Dose: Not Given Emollient Ointment (Vaseline Oint) 5 gm TOP Q4H PRN PRN Reason: Dry skin Last Admin: 07/18/18 17:52 Dose: 5 gm Epoetin Eddie (Procrit) 10,000 unit IV MWF [facility] Last Admin: 07/24/18 14:06 Dose: 10,000 unit Famotidine (Pepcid) 20 mg PO DAILY [facility] Last Admin: 07/24/18 10:32 Dose: Not Given Fluticasone/Vilanterol (Breo Ellipta 200-25 Mcg Inh) 1 puff INH RQD [facility] Last Admin: 07/24/18 08:14 Dose: 1 puff Glipizide (Glucotrol) 10 mg PO ACBD [facility] Last Admin: 07/24/18 09:05 Dose: 10 mg Glucagon (Glucagen Diagnostic Kit) 0 mg IM STAT PRN; Protocol PRN Reason: Hypoglycemia Protocol Guaifenesin (Robitussin) 100 mg PO Q6H PRN PRN Reason: Cough Last Admin: 07/23/18 09:51 Dose: 100 mg Home Med (Patient's Own Drops) 1 drop OD DAILY [facility] Last Admin: 07/24/18 12:27 Dose: Not Given Insulin Aspart (Novolog) 10 unit SC ONCE [facility]ETH Insulin Aspart (Novolog) 0 unit SC ACHS [facility]; Protocol Last Admin: 07/24/18 12:06 Dose: 12 units Insulin Detemir (Levemir) 12 unit SC Q12H [facility] Last Admin: 07/24/18 10:31 Dose: Not Given Levothyroxine Sodium (Synthroid) 150 mcg PO DAILY@0630 [facility] Last Admin: 07/17/18 06:06 Dose: 150 mcg Polyethylene Glycol (Miralax) 17 gm PO DAILY PRN PRN Reason: Constipation Last Admin: 07/14/18 08:29 Dose: 17 gm Rosuvastatin Calcium (Crestor) 5 mg PO HS [facility] Last Admin: 07/23/18 22:39 Dose: 5 mg Tiotropium [place] (Spiriva) 18 mcg INH RQ24 [facility] Last Admin: 07/24/18 08:18 Dose: Not Given - Labs Labs: 07/23/18 06:20 07/23/18 06:20 - Constitutional Appears: Chronically Ill - Head Exam Head Exam: ATRAUMATIC - Eye Exam Eye Exam: EOMI, PERRL Pupil Exam: NORMAL ACCOMODATION - ENT Exam ENT Exam: Mucous Membranes Moist - Neck Exam Neck Exam: Full ROM - Respiratory Exam Respiratory Exam: Decreased Breath Sounds - Cardiovascular Exam Cardiovascular Exam: REGULAR RHYTHM - GI/Abdominal Exam GI & Abdominal Exam: Normal Bowel Sounds - Extremities Exam Extremities Exam: Full ROM, Normal Inspection - Back Exam Back Exam: NORMAL INSPECTION - Neurological Exam Neurological Exam: Alert, Awake, Oriented x3 - Psychiatric Exam Psychiatric exam: Anxious - Skin Skin Exam: Normal Color Assessment and Plan - Assessment and Plan (Free Text) Assessment: 1. Normal LV systolic function. 2 A review of recent telemetry demonstrated controlled atrial fibrillation. 3. Will lower amio to 200 bid. Eventual 200 once a day. 4. Anticoagulated, 5. Pulse is regular: either regular a flutter or nsr; will repeat ecg.
--- NOTE | 2018-07-24 19:41 | CP.PCM.PN ---
Subjective - Date & Time of Evaluation Date of Evaluation: 07/24/18 - Subjective Subjective: patient examined at bedside today no nausea no voiting no diarrhea no fever no shortness of breath Objective - Vital Signs/Intake and Output Vital Signs (last 24 hours): Temp Pulse Resp BP Pulse Ox 98.3 F 86 20 108/55 L 97 07/24/18 17:00 07/24/18 17:00 07/24/18 17:00 07/24/18 17:00 07/24/18 17:00 Intake and Output: 07/24/18 07/25/18 18:59 06:59 Intake Total 600 Balance 600 - Medications Medications: Current Medications Acetaminophen (Tylenol 325mg Tab) 650 mg PO Q6 PRN PRN Reason: Fever >100.4 F Last Admin: 06/26/18 18:19 Dose: 650 mg Amiodarone HCl (Cordarone) 200 mg PO BID [facility] Last Admin: 07/24/18 18:56 Dose: 200 mg Apixaban (Eliquis) 2.5 mg PO Q48H [facility] Last Admin: 07/19/18 15:11 Dose: 2.5 mg Calcium Acetate (Phoslo) 667 mg PO TIDCC [facility] Last Admin: 07/24/18 18:46 Dose: 667 mg Dextrose (Dextrose 50% Inj) 0 ml IV STAT PRN; Protocol PRN Reason: Hypoglycemia Protocol Last Admin: 07/18/18 03:39 Dose: 50 ml Dextrose (Glutose 15) 0 gm PO ONCE PRN; Protocol PRN Reason: Hypoglycemia Protocol Diltiazem HCl (Cardizem Cd) 240 mg PO DAILY [facility] Last Admin: 07/24/18 10:31 Dose: Not Given Docusate Sodium (Colace) 100 mg PO BID [facility] Last Admin: 07/24/18 18:47 Dose: 100 mg Emollient Ointment (Vaseline Oint) 5 gm TOP Q4H PRN PRN Reason: Dry skin Last Admin: 07/18/18 17:52 Dose: 5 gm Epoetin Eddie (Procrit) 10,000 unit IV MWF [facility] Last Admin: 07/24/18 14:06 Dose: 10,000 unit Famotidine (Pepcid) 20 mg PO DAILY [facility] Last Admin: 07/24/18 10:32 Dose: Not Given Fluticasone/Vilanterol (Breo Ellipta 200-25 Mcg Inh) 1 puff INH RQD [facility] Last Admin: 07/24/18 08:14 Dose: 1 puff Glipizide (Glucotrol) 10 mg PO ACBD [facility] Last Admin: 07/24/18 18:47 Dose: 10 mg Glucagon (Glucagen Diagnostic Kit) 0 mg IM STAT PRN; Protocol PRN Reason: Hypoglycemia Protocol Guaifenesin (Robitussin) 100 mg PO Q6H PRN PRN Reason: Cough Last Admin: 07/23/18 09:51 Dose: 100 mg Home Med (Patient's Own Drops) 1 drop OD DAILY [facility] Last Admin: 07/24/18 12:27 Dose: Not Given Insulin Aspart (Novolog) 10 unit SC ONCE [facility]IBETH Insulin Aspart (Novolog) 0 unit SC ACHS [facility]; Protocol Last Admin: 07/24/18 18:42 Dose: Not Given Insulin Detemir (Levemir) 12 unit SC Q12H [facility] Last Admin: 07/24/18 10:31 Dose: Not Given Levothyroxine Sodium (Synthroid) 150 mcg PO DAILY@0630 [facility] Last Admin: 07/17/18 06:06 Dose: 150 mcg Polyethylene Glycol (Miralax) 17 gm PO DAILY PRN PRN Reason: Constipation Last Admin: 07/14/18 08:29 Dose: 17 gm Rosuvastatin Calcium (Crestor) 5 mg PO HS [facility] Last Admin: 07/23/18 22:39 Dose: 5 mg Tiotropium [place] (Spiriva) 18 mcg INH RQ24 [facility] Last Admin: 07/24/18 08:18 Dose: Not Given - Labs Labs: 07/23/18 06:20 07/23/18 06:20 - Constitutional Appears: Well - Head Exam Head Exam: ATRAUMATIC, NORMAL INSPECTION, NORMOCEPHALIC - Eye Exam Eye Exam: EOMI, Normal appearance, PERRL Pupil Exam: NORMAL ACCOMODATION, PERRL - ENT Exam ENT Exam: Mucous Membranes Moist, Normal Exam - Neck Exam Neck Exam: Full ROM, Normal Inspection. absent: Lymphadenopathy - Respiratory Exam Respiratory Exam: Decreased Breath Sounds - Cardiovascular Exam Cardiovascular Exam: REGULAR RHYTHM, +S1, +S2 - GI/Abdominal Exam GI & Abdominal Exam: Soft, Diminished Bowel Sounds - Rectal Exam Rectal Exam: Deferred - Neurological Exam Neurological Exam: Oriented x3 Assessment and Plan (1) CHF exacerbation Status: Acute (2) Dyspnea Status: Acute (3) ESRD (end stage renal disease) on dialysis Status: Acute (4) Uncontrolled diabetes mellitus Status: Acute (5) MARIA EUGENIA (acute kidney injury) Status: Acute (6) Abdominal pain Status: Acute (7) Acute bronchitis Status: Acute (8) Acute kidney injury Status: Acute (9) Acute kidney injury superimposed on chronic kidney disease Status: Acute (10) Acute respiratory failure Status: Acute (11) Anemia Status: Acute (12) Anemia of chronic disease Status: Acute (13) Atrial fibrillation with controlled ventricular response Status: Acute (14) Back pain of thoracolumbar region Status: Acute (15) Bronchitis Status: Acute (16) Bronchitis Status: Acute (17) CHF (congestive heart failure) Status: Acute (18) CHF (congestive heart failure) Status: Acute (19) CKD (chronic kidney disease) stage 3, GFR 30-59 ml/min Status: Acute (20) COPD (chronic obstructive pulmonary disease) Status: Acute (21) COPD exacerbation Status: Acute (22) COPD exacerbation Status: Acute (23) Chest pain Status: Acute (24) ESR raised Status: Acute (25) ESRD (end stage renal disease) Status: Acute (26) Fluid overload Status: Acute (27) Fluid overload, unspecified Status: Acute (28) Gastritis Status: Acute (29) Hepatitis Status: Acute (30) History of asthma Status: Acute (31) History of atrial fibrillation Status: Acute (32) History of back pain Status: Acute (33) History of gastroesophageal reflux (GERD) Status: Acute (34) Hypercalcemia Status: Acute (35) Hyperlipemia Status: Acute (36) Influenza Status: Acute (37) Leucocytosis Status: Acute (38) Lower extremity pain Status: Acute (39) Multiple myeloma Status: Acute (40) Multiple myeloma Status: Acute (41) Myeloma Status: Acute (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 (43) Occult gastrointestinal hemorrhage Status: Acute (44) Paroxysmal A-fib Status: Acute (45) Pneumonia Status: Acute (46) Prophylactic measure Status: Acute (47) Pulmonary hypertension Status: Acute (48) Pulmonary hypertension Status: Acute (49) Renal failure Status: Acute (50) Respiratory tract infection Status: Acute (51) Streptococcus pneumoniae Status: Acute (52) Symptomatic anemia Status: Acute (53) Vertigo Status: Acute (54) Worsening renal function Status: Acute (55) Anemia Status: Chronic (56) Asthma Status: Chronic (57) Atrial fibrillation Status: Chronic (58) Chronic diastolic (congestive) heart failure Status: Chronic (59) Diabetes Status: Chronic (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
[2018-07-25] MEDS: Tiotropium 18 mcg Cap For Inhalation INH SCH (08:10)
[2018-07-25] MEDS: Fluticasone-Vilanterol 200/25mcg Diskus INH SCH (08:10)
[2018-07-25] MEDS: (Novolog) Insulin Aspart, Recombinant 100 u/ml 10 ml vial SC SCH ×4 (09:09→22:00)
[2018-07-25] MEDS: diltiaZEM 240 mg/24 Hours CD Cap PO SCH (09:09)
[2018-07-25] MEDS: BROMFENAC 0.07% OD SCH (09:09)
--- NOTE | 2018-07-25 10:48 | CP.PCM.PN ---
Subjective - Date & Time of Evaluation Date of Evaluation: 07/25/18 Time of Evaluation: 10:46 - Subjective Subjective: stable dialysis 4/10 less cough HR- 70s in regular rate s/p epistaxis few days ago- on small dose eliquis Objective - Vital Signs/Intake and Output Vital Signs (last 24 hours): Temp Pulse Resp BP Pulse Ox 97.8 F 77 20 118/51 L 96 07/25/18 08:00 07/25/18 08:00 07/25/18 08:00 07/25/18 08:00 07/25/18 08:00 - Medications Medications: Current Medications Acetaminophen (Tylenol 325mg Tab) 650 mg PO Q6 PRN PRN Reason: Fever >100.4 F Last Admin: 06/26/18 18:19 Dose: 650 mg Amiodarone HCl (Cordarone) 200 mg PO BID [facility] Last Admin: 07/25/18 09:09 Dose: 200 mg Apixaban (Eliquis) 2.5 mg PO Q48H [facility] Last Admin: 07/19/18 15:11 Dose: 2.5 mg Calcium Acetate (Phoslo) 667 mg PO TIDCC [facility] Last Admin: 07/25/18 09:09 Dose: 667 mg Dextrose (Dextrose 50% Inj) 0 ml IV STAT PRN; Protocol PRN Reason: Hypoglycemia Protocol Last Admin: 07/18/18 03:39 Dose: 50 ml Dextrose (Glutose 15) 0 gm PO ONCE PRN; Protocol PRN Reason: Hypoglycemia Protocol Last Admin: 07/25/18 06:26 Dose: 15 gm Diltiazem HCl (Cardizem Cd) 240 mg PO DAILY [facility] Last Admin: 07/25/18 09:09 Dose: 240 mg Docusate Sodium (Colace) 100 mg PO BID [facility] Last Admin: 07/25/18 09:09 Dose: 100 mg Emollient Ointment (Vaseline Oint) 5 gm TOP Q4H PRN PRN Reason: Dry skin Last Admin: 07/18/18 17:52 Dose: 5 gm Epoetin Eddie (Procrit) 10,000 unit IV MWF [facility] Last Admin: 07/24/18 14:06 Dose: 10,000 unit Famotidine (Pepcid) 20 mg PO DAILY [facility] Last Admin: 07/25/18 09:09 Dose: 20 mg Fluticasone/Vilanterol (Breo Ellipta 200-25 Mcg Inh) 1 puff INH RQD [facility] Last Admin: 07/25/18 08:10 Dose: 1 puff Glipizide (Glucotrol) 10 mg PO ACBD [facility] Last Admin: 07/25/18 08:20 Dose: 10 mg Glucagon (Glucagen Diagnostic Kit) 0 mg IM STAT PRN; Protocol PRN Reason: Hypoglycemia Protocol Guaifenesin (Robitussin) 100 mg PO Q6H PRN PRN Reason: Cough Last Admin: 07/23/18 09:51 Dose: 100 mg Home Med (Patient's Own Drops) 1 drop OD DAILY [facility] Last Admin: 07/25/18 09:09 Dose: Not Given Insulin Aspart (Novolog) 10 unit SC ONCE [facility] Insulin Aspart (Novolog) 0 unit SC ACHS [facility]; Protocol Last Admin: 07/25/18 09:09 Dose: Not Given Insulin Detemir (Levemir) 12 unit SC Q12H [facility] Last Admin: 07/24/18 23:56 Dose: 12 units Levothyroxine Sodium (Synthroid) 150 mcg PO DAILY@0630 [facility] Last Admin: 07/17/18 06:06 Dose: 150 mcg Polyethylene Glycol (Miralax) 17 gm PO DAILY PRN PRN Reason: Constipation Last Admin: 07/14/18 08:29 Dose: 17 gm Rosuvastatin Calcium (Crestor) 5 mg PO HS [facility] Last Admin: 07/24/18 21:34 Dose: 5 mg Tiotropium [place] (Spiriva) 18 mcg INH RQ24 [facility] Last Admin: 07/25/18 08:10 Dose: 18 mcg - Labs Labs: 07/23/18 06:20 07/23/18 06:20 - Constitutional Appears: No Acute Distress, Chronically Ill - Head Exam Head Exam: ATRAUMATIC, NORMAL INSPECTION - Eye Exam Eye Exam: EOMI, Normal appearance - Neck Exam Neck Exam: Normal Inspection. absent: Tenderness - Respiratory Exam Respiratory Exam: Clear to Ausculation Bilateral, NORMAL BREATHING PATTERN - Cardiovascular Exam Cardiovascular Exam: REGULAR RHYTHM, +S1 - GI/Abdominal Exam GI & Abdominal Exam: Soft. absent: Tenderness - Extremities Exam Extremities Exam: Normal Inspection. absent: Tenderness - Neurological Exam Neurological Exam: Awake, CN II-XII Intact - Skin Skin Exam: Dry, Warm Assessment and Plan (1) Atrial fibrillation with RVR Status: Resolved (2) CHF exacerbation Status: Acute (3) COPD exacerbation Status: Acute (4) Multiple myeloma Status: Acute - Assessment and Plan (Free Text) Plan: dialysis in AM Afib control as per cardio check cbc
[2018-07-25] MEDS: guaiFENesin 100 mg/5 ml Syrup UD PO PRN ×2 (11:25→18:11)
[2018-07-25] MEDS: Insulin Detemir 100 units/ml Vial (Levemir) SC SCH ×2 (11:26→22:00)
--- NOTE | 2018-07-25 14:58 | CP.PCM.PN ---
Subjective - Date & Time of Evaluation Date of Evaluation: 07/25/18 Objective - Vital Signs/Intake and Output Vital Signs (last 24 hours): Temp Pulse Resp BP Pulse Ox 97.8 F 77 20 118/51 L 96 07/25/18 08:00 07/25/18 08:00 07/25/18 08:00 07/25/18 08:00 07/25/18 08:00 Intake and Output: 07/25/18 07/25/18 06:59 18:59 Intake Total 800 Balance 800 - Medications Medications: Current Medications Acetaminophen (Tylenol 325mg Tab) 650 mg PO Q6 PRN PRN Reason: Fever >100.4 F Last Admin: 06/26/18 18:19 Dose: 650 mg Amiodarone HCl (Cordarone) 200 mg PO BID [facility] Last Admin: 07/25/18 09:09 Dose: 200 mg Apixaban (Eliquis) 2.5 mg PO Q48H [facility] Last Admin: 07/19/18 15:11 Dose: 2.5 mg Calcium Acetate (Phoslo) 667 mg PO TIDCC [facility] Last Admin: 07/25/18 13:07 Dose: 667 mg Dextrose (Dextrose 50% Inj) 0 ml IV STAT PRN; Protocol PRN Reason: Hypoglycemia Protocol Last Admin: 07/18/18 03:39 Dose: 50 ml Dextrose (Glutose 15) 0 gm PO ONCE PRN; Protocol PRN Reason: Hypoglycemia Protocol Last Admin: 07/25/18 06:26 Dose: 15 gm Diltiazem HCl (Cardizem Cd) 240 mg PO DAILY [facility] Last Admin: 07/25/18 09:09 Dose: 240 mg Docusate Sodium (Colace) 100 mg PO BID [facility] Last Admin: 07/25/18 09:09 Dose: 100 mg Emollient Ointment (Vaseline Oint) 5 gm TOP Q4H PRN PRN Reason: Dry skin Last Admin: 07/18/18 17:52 Dose: 5 gm Epoetin Eddie (Procrit) 10,000 unit IV MWF [facility] Last Admin: 07/24/18 14:06 Dose: 10,000 unit Famotidine (Pepcid) 20 mg PO DAILY [facility] Last Admin: 07/25/18 09:09 Dose: 20 mg Fluticasone/Vilanterol (Breo Ellipta 200-25 Mcg Inh) 1 puff INH RQD [facility] Last Admin: 07/25/18 08:10 Dose: 1 puff Glipizide (Glucotrol) 10 mg PO ACBD [facility] Last Admin: 07/25/18 08:20 Dose: 10 mg Glucagon (Glucagen Diagnostic Kit) 0 mg IM STAT PRN; Protocol PRN Reason: Hypoglycemia Protocol Guaifenesin (Robitussin) 100 mg PO Q6H PRN PRN Reason: Cough Last Admin: 07/25/18 11:25 Dose: 100 mg Home Med (Patient's Own Drops) 1 drop OD DAILY [facility] Last Admin: 07/25/18 09:09 Dose: Not Given Insulin Aspart (Novolog) 10 unit SC ONCE [facility] Insulin Aspart (Novolog) 0 unit SC ACHS [facility]; Protocol Last Admin: 07/25/18 11:43 Dose: Not Given Insulin Detemir (Levemir) 12 unit SC Q12H [facility] Last Admin: 07/25/18 11:26 Dose: Not Given Levothyroxine Sodium (Synthroid) 150 mcg PO DAILY@0630 [facility] Last Admin: 07/17/18 06:06 Dose: 150 mcg Polyethylene Glycol (Miralax) 17 gm PO DAILY PRN PRN Reason: Constipation Last Admin: 07/14/18 08:29 Dose: 17 gm Rosuvastatin Calcium (Crestor) 5 mg PO HS [facility] Last Admin: 07/24/18 21:34 Dose: 5 mg Tiotropium [place] (Spiriva) 18 mcg INH RQ24 [facility] Last Admin: 07/25/18 08:10 Dose: 18 mcg - Labs Labs: 07/23/18 06:20 07/23/18 06:20 - Constitutional Appears: Well - Head Exam Head Exam: ATRAUMATIC, NORMAL INSPECTION, NORMOCEPHALIC - Eye Exam Eye Exam: EOMI, Normal appearance, PERRL Pupil Exam: NORMAL ACCOMODATION, PERRL - ENT Exam ENT Exam: Mucous Membranes Moist, Normal Exam - Neck Exam Neck Exam: Full ROM, Normal Inspection. absent: Lymphadenopathy - Respiratory Exam Respiratory Exam: Decreased Breath Sounds - Cardiovascular Exam Cardiovascular Exam: REGULAR RHYTHM, +S1, +S2 - GI/Abdominal Exam GI & Abdominal Exam: Diminished Bowel Sounds - Rectal Exam Rectal Exam: Deferred - Neurological Exam Neurological Exam: Oriented x3 Assessment and Plan (1) CHF exacerbation Status: Acute (2) Dyspnea Status: Acute (3) ESRD (end stage renal disease) on dialysis Status: Acute (4) Uncontrolled diabetes mellitus Status: Acute (5) MARIA EUGENIA (acute kidney injury) Status: Acute (6) Abdominal pain Status: Acute (7) Acute bronchitis Status: Acute (8) Acute kidney injury Status: Acute (9) Acute kidney injury superimposed on chronic kidney disease Status: Acute (10) Acute respiratory failure Status: Acute (11) Anemia Status: Acute (12) Anemia of chronic disease Status: Acute (13) Atrial fibrillation with controlled ventricular response Status: Acute (14) Back pain of thoracolumbar region Status: Acute (15) Bronchitis Status: Acute (16) Bronchitis Status: Acute (17) CHF (congestive heart failure) Status: Acute (18) CHF (congestive heart failure) Status: Acute (19) CKD (chronic kidney disease) stage 3, GFR 30-59 ml/min Status: Acute (20) COPD (chronic obstructive pulmonary disease) Status: Acute (21) COPD exacerbation Status: Acute (22) COPD exacerbation Status: Acute (23) Chest pain Status: Acute (24) ESR raised Status: Acute (25) ESRD (end stage renal disease) Status: Acute (26) Fluid overload Status: Acute (27) Fluid overload, unspecified Status: Acute (28) Gastritis Status: Acute (29) Hepatitis Status: Acute (30) History of asthma Status: Acute (31) History of atrial fibrillation Status: Acute (32) History of back pain Status: Acute (33) History of gastroesophageal reflux (GERD) Status: Acute (34) Hypercalcemia Status: Acute (35) Hyperlipemia Status: Acute (36) Influenza Status: Acute (37) Leucocytosis Status: Acute (38) Lower extremity pain Status: Acute (39) Multiple myeloma Status: Acute (40) Multiple myeloma Status: Acute (41) Myeloma Status: Acute (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 (43) Occult gastrointestinal hemorrhage Status: Acute (44) Paroxysmal A-fib Status: Acute (45) Pneumonia Status: Acute (46) Prophylactic measure Status: Acute (47) Pulmonary hypertension Status: Acute (48) Pulmonary hypertension Status: Acute (49) Renal failure Status: Acute (50) Respiratory tract infection Status: Acute (51) Streptococcus pneumoniae Status: Acute (52) Symptomatic anemia Status: Acute (53) Vertigo Status: Acute (54) Worsening renal function Status: Acute (55) Anemia Status: Chronic (56) Asthma Status: Chronic (57) Atrial fibrillation Status: Chronic (58) Chronic diastolic (congestive) heart failure Status: Chronic (59) Diabetes Status: Chronic (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
[2018-07-26] MEDS ORDERED: Dextrose 50% SYRINGE Inj (50 ml) IV STA (02:09)
[2018-07-26] MEDS: Tiotropium 18 mcg Cap For Inhalation INH SCH (07:45)
[2018-07-26] MEDS: Fluticasone-Vilanterol 200/25mcg Diskus INH SCH (07:45)
[2018-07-26 08:22] LABS: HEMOGLOBIN 7.8 g/dL (11.0-16.0); MEAN CELL VOLUME 88.4 fL (81.0-99.0); MEAN CORPUSCULAR HGB CONC 32.8 g/dL (33.0-37.0); MEAN PLATELET VOLUME 9.8 fL (7.2-11.7); RBC 2.68 Mil/uL (3.80-5.20); RED CELL DISTRIBUTION WIDTH 16.1 % (11.5-14.5); WHITE BLOOD COUNT 6.6 K/uL (4.8-10.8)
[2018-07-26 08:38] LABS: ALB/GLOB RATIO 0.9 (1.0-2.1); ALBUMIN 2.4 g/dL (3.5-5.0); CALCIUM 7.3 mg/dl (8.6-10.4)
[2018-07-26] MEDS: (Novolog) Insulin Aspart, Recombinant 100 u/ml 10 ml vial SC SCH ×5 (09:12→22:00)
[2018-07-26] MEDS: diltiaZEM 240 mg/24 Hours CD Cap PO SCH (09:36)
[2018-07-26] MEDS: BROMFENAC 0.07% OD SCH (09:37)
[2018-07-26] MEDS: Insulin Detemir 100 units/ml Vial (Levemir) SC SCH ×2 (13:06→22:00)
--- NOTE | 2018-07-26 13:15 | CP.PCM.PN ---
Subjective - Date & Time of Evaluation Date of Evaluation: 07/26/18 Time of Evaluation: 13:13 - Subjective Subjective: seen on dialysis receiving 1 unit prbcs blood transfusion for Hg 7.8 BP stable to UF 2100ml no more epistaxis HR- 70s feels better Objective - Vital Signs/Intake and Output Vital Signs (last 24 hours): Temp Pulse Resp BP Pulse Ox 97.7 F 73 18 111/54 L 98 07/26/18 12:36 07/26/18 12:36 07/26/18 12:36 07/26/18 12:45 07/26/18 08:00 Intake and Output: 07/26/18 07/26/18 06:59 18:59 Intake Total 0 Balance 0 - Medications Medications: Current Medications Acetaminophen (Tylenol 325mg Tab) 650 mg PO Q6 PRN PRN Reason: Fever >100.4 F Last Admin: 06/26/18 18:19 Dose: 650 mg Amiodarone HCl (Cordarone) 200 mg PO BID [facility] Last Admin: 07/26/18 09:37 Dose: Not Given Apixaban (Eliquis) 2.5 mg PO Q48H [facility] Last Admin: 07/19/18 15:11 Dose: 2.5 mg Dextrose (Dextrose 50% Inj) 0 ml IV STAT PRN; Protocol PRN Reason: Hypoglycemia Protocol Last Admin: 07/18/18 03:39 Dose: 50 ml Dextrose (Glutose 15) 0 gm PO ONCE PRN; Protocol PRN Reason: Hypoglycemia Protocol Last Admin: 07/25/18 06:26 Dose: 15 gm Diltiazem HCl (Cardizem Cd) 240 mg PO DAILY [facility] Last Admin: 07/26/18 09:36 Dose: Not Given Docusate Sodium (Colace) 100 mg PO BID [facility] Last Admin: 07/26/18 09:37 Dose: Not Given Emollient Ointment (Vaseline Oint) 5 gm TOP Q4H PRN PRN Reason: Dry skin Last Admin: 07/18/18 17:52 Dose: 5 gm Epoetin Eddie (Procrit) 10,000 unit IV MWF [facility] Last Admin: 07/24/18 14:06 Dose: 10,000 unit Famotidine (Pepcid) 20 mg PO DAILY [facility] Last Admin: 07/26/18 09:37 Dose: Not Given Fluticasone/Vilanterol (Breo Ellipta 200-25 Mcg Inh) 1 puff INH RQD [facility] Last Admin: 07/26/18 07:45 Dose: 1 puff Glipizide (Glucotrol) 10 mg PO ACBD [facility] Last Admin: 07/26/18 09:00 Dose: Not Given Glucagon (Glucagen Diagnostic Kit) 0 mg IM STAT PRN; Protocol PRN Reason: Hypoglycemia Protocol Guaifenesin (Robitussin) 100 mg PO Q6H PRN PRN Reason: Cough Last Admin: 07/25/18 18:11 Dose: 100 mg Insulin Aspart (Novolog) 10 unit SC ONCE [facility] Insulin Aspart (Novolog) 0 unit SC ACHS [facility]; Protocol Last Admin: 07/26/18 13:06 Dose: Not Given Insulin Detemir (Levemir) 12 unit SC Q12H [facility] Last Admin: 07/26/18 13:06 Dose: Not Given Levothyroxine Sodium (Synthroid) 150 mcg PO DAILY@0630 [facility] Last Admin: 07/17/18 06:06 Dose: 150 mcg Rosuvastatin Calcium (Crestor) 5 mg PO HS [facility] Last Admin: 07/25/18 21:58 Dose: 5 mg Tiotropium [place] (Spiriva) 18 mcg INH RQ24 [facility] Last Admin: 07/26/18 07:45 Dose: 18 mcg - Labs Labs: 07/26/18 08:18 07/26/18 08:18 - Constitutional Appears: No Acute Distress, Chronically Ill - Head Exam Head Exam: ATRAUMATIC, NORMAL INSPECTION - Eye Exam Eye Exam: EOMI, Normal appearance - Neck Exam Neck Exam: Normal Inspection. absent: Tenderness - Respiratory Exam Respiratory Exam: Clear to Ausculation Bilateral, NORMAL BREATHING PATTERN - Cardiovascular Exam Cardiovascular Exam: REGULAR RHYTHM, +S1 - GI/Abdominal Exam GI & Abdominal Exam: Soft. absent: Tenderness - Extremities Exam Extremities Exam: Normal Inspection. absent: Tenderness - Neurological Exam Neurological Exam: Awake, CN II-XII Intact - Skin Skin Exam: Dry, Warm Assessment and Plan (1) Atrial fibrillation with RVR Status: Resolved (2) CHF exacerbation Status: Acute (3) COPD exacerbation Status: Acute (4) Multiple myeloma Status: Acute - Assessment and Plan (Free Text) Plan: same cardiac meds stop ca acetate as phos lower same dialysis MWF with UF 2-2.5kg small dose eliquis eventual outpatient dialysis at [facility]
--- NOTE | 2018-07-26 17:06 | PCM.HF ---
Heart Failure Core Measure - Heart Failure Ejection Fraction: 40 % or Greater (EF >40%) [id number] Inhibitor Prescribed: No Contraindication/Reason for not providing: RENAL DYSFUNCTION Beta-Aftab Prescribed: None Contraindication/Reason for not providing: copd Angiotensin II Receptor Aftab Prescribed: No Contraindication/Reason for not providing: renal dysfuction AnticoagulationTherapy for Atrial Fibrillation/Atrialflutter: Yes Aldosterone Antagonist Prescribed: No Contraindication/Reason for not providing: on calcium channel aftab Hydralazine Nitrate Prescribed: No Contraindication/Reason for not providing: EF > 40% Implantable Cardioverter Defibrillator Therapy: No Contraindication/Reason for not providing: EF > 40% Cardiac Resynchronization Therapy Prescribed: No Contraindication/Reason for not providing: not indicated - Follow up Will be discharged to: Long Term Facility ([facility])
--- NOTE | 2018-07-26 17:13 | CP.PCM.PN ---
Subjective - Date & Time of Evaluation Date of Evaluation: 07/26/18 Time of Evaluation: 17:13 - Subjective Subjective: Alert awake no acute distress. Seen in Dialysis room. Objective - Vital Signs/Intake and Output Vital Signs (last 24 hours): Temp Pulse Resp BP Pulse Ox 98.9 F 89 18 119/54 L 96 07/26/18 16:00 07/26/18 16:00 07/26/18 16:00 07/26/18 16:00 07/26/18 16:00 Intake and Output: 07/26/18 07/26/18 06:59 18:59 Intake Total 355 Balance 355 - Medications Medications: Current Medications Acetaminophen (Tylenol 325mg Tab) 650 mg PO Q6 PRN PRN Reason: Fever >100.4 F Last Admin: 06/26/18 18:19 Dose: 650 mg Amiodarone HCl (Cordarone) 200 mg PO BID [facility] Last Admin: 07/26/18 09:37 Dose: Not Given Apixaban (Eliquis) 2.5 mg PO Q48H [facility] Last Admin: 07/19/18 15:11 Dose: 2.5 mg Dextrose (Dextrose 50% Inj) 0 ml IV STAT PRN; Protocol PRN Reason: Hypoglycemia Protocol Last Admin: 07/18/18 03:39 Dose: 50 ml Dextrose (Glutose 15) 0 gm PO ONCE PRN; Protocol PRN Reason: Hypoglycemia Protocol Last Admin: 07/25/18 06:26 Dose: 15 gm Diltiazem HCl (Cardizem Cd) 240 mg PO DAILY [facility] Last Admin: 07/26/18 09:36 Dose: Not Given Docusate Sodium (Colace) 100 mg PO BID [facility] Last Admin: 07/26/18 09:37 Dose: Not Given Emollient Ointment (Vaseline Oint) 5 gm TOP Q4H PRN PRN Reason: Dry skin Last Admin: 07/18/18 17:52 Dose: 5 gm Epoetin Eddie (Procrit) 10,000 unit IV MWF [facility] Last Admin: 07/24/18 14:06 Dose: 10,000 unit Famotidine (Pepcid) 20 mg PO DAILY [facility] Last Admin: 07/26/18 09:37 Dose: Not Given Fluticasone/Vilanterol (Breo Ellipta 200-25 Mcg Inh) 1 puff INH RQD [facility] Last Admin: 07/26/18 07:45 Dose: 1 puff Glipizide (Glucotrol) 10 mg PO ACBD [facility] Last Admin: 07/26/18 09:00 Dose: Not Given Glucagon (Glucagen Diagnostic Kit) 0 mg IM STAT PRN; Protocol PRN Reason: Hypoglycemia Protocol Guaifenesin (Robitussin) 100 mg PO Q6H PRN PRN Reason: Cough Last Admin: 07/25/18 18:11 Dose: 100 mg Insulin Aspart (Novolog) 10 unit SC ONCE [facility] Insulin Aspart (Novolog) 0 unit SC ACHS [facility]; Protocol Last Admin: 07/26/18 13:06 Dose: Not Given Insulin Detemir (Levemir) 12 unit SC Q12H [facility] Last Admin: 07/26/18 13:06 Dose: Not Given Levothyroxine Sodium (Synthroid) 150 mcg PO DAILY@0630 [facility] Last Admin: 07/17/18 06:06 Dose: 150 mcg Rosuvastatin Calcium (Crestor) 5 mg PO HS [facility] Last Admin: 07/25/18 21:58 Dose: 5 mg Tiotropium [place] (Spiriva) 18 mcg INH RQ24 [facility] Last Admin: 07/26/18 07:45 Dose: 18 mcg - Labs Labs: 07/26/18 08:18 07/26/18 08:18 Assessment and Plan - Assessment and Plan (Free Text) Assessment: 83 year old female admitted with uncontrolled DM, CHF, ESRD. Seen and examined. alert and oriented, denies any chest pain, SOB. Had HD done today. Discusssed with Dr. Celena Penn plan to discharge pt to [facility] today. will continue with HD MWF. Patient agreed with the plan.
--- NOTE | 2018-07-26 19:51 | CP.PCM.PN ---
Subjective - Date & Time of Evaluation Date of Evaluation: 07/26/18 - Subjective Subjective: patient examined today no nausea, no vomiting, no fever, no diarrhea, no sob Objective - Vital Signs/Intake and Output Vital Signs (last 24 hours): Temp Pulse Resp BP Pulse Ox 98.9 F 89 18 119/54 L 96 07/26/18 16:00 07/26/18 16:00 07/26/18 16:00 07/26/18 16:00 07/26/18 16:00 Intake and Output: 07/26/18 07/27/18 18:59 06:59 Intake Total 355 Balance 355 - Medications Medications: Current Medications Acetaminophen (Tylenol 325mg Tab) 650 mg PO Q6 PRN PRN Reason: Fever >100.4 F Last Admin: 06/26/18 18:19 Dose: 650 mg Amiodarone HCl (Cordarone) 200 mg PO BID [facility] Last Admin: 07/26/18 18:10 Dose: 200 mg Apixaban (Eliquis) 2.5 mg PO Q48H [facility] Last Admin: 07/19/18 15:11 Dose: 2.5 mg Dextrose (Dextrose 50% Inj) 0 ml IV STAT PRN; Protocol PRN Reason: Hypoglycemia Protocol Last Admin: 07/18/18 03:39 Dose: 50 ml Dextrose (Glutose 15) 0 gm PO ONCE PRN; Protocol PRN Reason: Hypoglycemia Protocol Last Admin: 07/25/18 06:26 Dose: 15 gm Diltiazem HCl (Cardizem Cd) 240 mg PO DAILY [facility] Last Admin: 07/26/18 09:36 Dose: Not Given Docusate Sodium (Colace) 100 mg PO BID [facility] Last Admin: 07/26/18 18:10 Dose: 100 mg Emollient Ointment (Vaseline Oint) 5 gm TOP Q4H PRN PRN Reason: Dry skin Last Admin: 07/18/18 17:52 Dose: 5 gm Epoetin Eddie (Procrit) 10,000 unit IV MWF [facility] Last Admin: 07/24/18 14:06 Dose: 10,000 unit Famotidine (Pepcid) 20 mg PO DAILY [facility] Last Admin: 07/26/18 09:37 Dose: Not Given Fluticasone/Vilanterol (Breo Ellipta 200-25 Mcg Inh) 1 puff INH RQD [facility] Last Admin: 07/26/18 07:45 Dose: 1 puff Glipizide (Glucotrol) 10 mg PO ACBD [facility] Last Admin: 07/26/18 18:01 Dose: Not Given Glucagon (Glucagen Diagnostic Kit) 0 mg IM STAT PRN; Protocol PRN Reason: Hypoglycemia Protocol Guaifenesin (Robitussin) 100 mg PO Q6H PRN PRN Reason: Cough Last Admin: 07/25/18 18:11 Dose: 100 mg Insulin Aspart (Novolog) 10 unit SC ONCE MARIBETH Insulin Aspart (Novolog) 0 unit SC ACHS [facility]; Protocol Last Admin: 07/26/18 19:46 Dose: 10 units Insulin Detemir (Levemir) 12 unit SC Q12H [facility] Last Admin: 07/26/18 13:06 Dose: Not Given Levothyroxine Sodium (Synthroid) 150 mcg PO DAILY@0630 [facility] Last Admin: 07/17/18 06:06 Dose: 150 mcg Rosuvastatin Calcium (Crestor) 5 mg PO HS [facility] Last Admin: 07/25/18 21:58 Dose: 5 mg Tiotropium Parsons (Spiriva) 18 mcg INH RQ24 [facility] Last Admin: 07/26/18 07:45 Dose: 18 mcg - Labs Labs: 07/26/18 08:18 07/26/18 08:18 - Constitutional Appears: Well - Head Exam Head Exam: ATRAUMATIC, NORMAL INSPECTION, NORMOCEPHALIC - Eye Exam Eye Exam: EOMI, Normal appearance, PERRL Pupil Exam: NORMAL ACCOMODATION, PERRL - ENT Exam ENT Exam: Mucous Membranes Moist, Normal Exam - Neck Exam Neck Exam: Full ROM, Normal Inspection. absent: Lymphadenopathy - Respiratory Exam Respiratory Exam: Decreased Breath Sounds - Cardiovascular Exam Cardiovascular Exam: REGULAR RHYTHM, +S1, +S2 - GI/Abdominal Exam GI & Abdominal Exam: Soft, Diminished Bowel Sounds - Rectal Exam Rectal Exam: Deferred - Neurological Exam Neurological Exam: Oriented x3 Assessment and Plan (1) CHF exacerbation Status: Acute (2) Dyspnea Status: Acute (3) ESRD (end stage renal disease) on dialysis Status: Acute (4) Uncontrolled diabetes mellitus Status: Acute (5) MARIA EUGENIA (acute kidney injury) Status: Acute (6) Abdominal pain Status: Acute (7) Acute bronchitis Status: Acute (8) Acute kidney injury Status: Acute (9) Acute kidney injury superimposed on chronic kidney disease Status: Acute (10) Acute respiratory failure Status: Acute (11) Anemia Status: Acute (12) Anemia of chronic disease Status: Acute (13) Atrial fibrillation with controlled ventricular response Status: Acute (14) Back pain of thoracolumbar region Status: Acute (15) Bronchitis Status: Acute (16) Bronchitis Status: Acute (17) CHF (congestive heart failure) Status: Acute (18) CHF (congestive heart failure) Status: Acute (19) CKD (chronic kidney disease) stage 3, GFR 30-59 ml/min Status: Acute (20) COPD (chronic obstructive pulmonary disease) Status: Acute (21) COPD exacerbation Status: Acute (22) COPD exacerbation Status: Acute (23) Chest pain Status: Acute (24) ESR raised Status: Acute (25) ESRD (end stage renal disease) Status: Acute (26) Fluid overload Status: Acute (27) Fluid overload, unspecified Status: Acute (28) Gastritis Status: Acute (29) Hepatitis Status: Acute (30) History of asthma Status: Acute (31) History of atrial fibrillation Status: Acute (32) History of back pain Status: Acute (33) History of gastroesophageal reflux (GERD) Status: Acute (34) Hypercalcemia Status: Acute (35) Hyperlipemia Status: Acute (36) Influenza Status: Acute (37) Leucocytosis Status: Acute (38) Lower extremity pain Status: Acute (39) Multiple myeloma Status: Acute (40) Multiple myeloma Status: Acute (41) Myeloma Status: Acute (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 (43) Occult gastrointestinal hemorrhage Status: Acute (44) Paroxysmal A-fib Status: Acute (45) Pneumonia Status: Acute (46) Prophylactic measure Status: Acute (47) Pulmonary hypertension Status: Acute (48) Pulmonary hypertension Status: Acute (49) Renal failure Status: Acute (50) Respiratory tract infection Status: Acute (51) Streptococcus pneumoniae Status: Acute (52) Symptomatic anemia Status: Acute (53) Vertigo Status: Acute (54) Worsening renal function Status: Acute (55) Anemia Status: Chronic (56) Asthma Status: Chronic (57) Atrial fibrillation Status: Chronic (58) Chronic diastolic (congestive) heart failure Status: Chronic (59) Diabetes Status: Chronic (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
--- NOTE | 2018-07-26 21:51 | CP.PCM.DIS ---
Provider - Provider Date of Admission: 06/25/18 16:34 Attending physician: Navdeep Penn MD Consults: 06/25/18 16:46 Physician Consult Routine Comment: *REQUESTED BY PMD Consulting Provider: Rolando Bill Consulting Physician: Rolando Bill Reason for Consult: ESRD 06/26/18 02:42 Social Work Referral Routine Comment: On HD Physician Instructions: Reason For Exam: ON HD @ [facility] [id number] 06/26/18 16:16 Pulmonology Consult Routine Comment: Consulting Provider: Lillie Mai Consulting Physician: Lillie Mai Reason for Consult: sob 06/26/18 22:20 Physician Consult Stat Comment: Consulting Provider: Noam Luong Consulting Physician: Noam Luong Reason for Consult: fever? 06/27/18 14:57 Cardiology Consult Routine Comment: Consulting Provider: Marc Gold Consulting Physician: Marc Gold Reason for Consult: Rapid a-fib 07/09/18 14:05 Hematology Oncology Consult Routine Comment: Consulting Provider: Kathleen Martinez Consulting Physician: Kathleen Martinez Reason for Consult: anemia, multiple myeloma 07/09/18 17:29 Palliative Care Consult Routine Comment: Consulting Provider: Holli Thomas Physician Instructions: Reason For Exam: Discuss POLST form, states that pt is DNI status 07/14/18 13:13 Critical Care Consult Routine Comment: Consulting Provider: Jc Stevens Consulting Physician: Jc Stevens Reason for Consult: afib/aflutter 07/20/18 15:36 Wound Care [Nursing Referral for Wound Care] Routine Comment: Physician Instructions: Reason For Exam: rt heel pressure ulcer Time Spent in preparation of Discharge (in minutes): 20 Diagnosis - Discharge Diagnosis (1) CHF exacerbation Status: Acute (2) Dyspnea Status: Acute (3) ESRD (end stage renal disease) on dialysis Status: Acute (4) Uncontrolled diabetes mellitus Status: Acute (5) MARIA EUGENIA (acute kidney injury) Status: Acute (6) Abdominal pain Status: Acute (7) Acute bronchitis Status: Acute (8) Acute kidney injury Status: Acute (9) Acute kidney injury superimposed on chronic kidney disease Status: Acute (10) Acute respiratory failure Status: Acute (11) Anemia Status: Acute (12) Anemia of chronic disease Status: Acute (13) Atrial fibrillation with controlled ventricular response Status: Acute (14) Back pain of thoracolumbar region Status: Acute (15) Bronchitis Status: Acute (16) Bronchitis Status: Acute (17) CHF (congestive heart failure) Status: Acute (18) CHF (congestive heart failure) Status: Acute (19) CKD (chronic kidney disease) stage 3, GFR 30-59 ml/min Status: Acute (20) COPD (chronic obstructive pulmonary disease) Status: Acute (21) COPD exacerbation Status: Acute (22) COPD exacerbation Status: Acute (23) Chest pain Status: Acute (24) ESR raised Status: Acute (25) ESRD (end stage renal disease) Status: Acute (26) Fluid overload Status: Acute (27) Fluid overload, unspecified Status: Acute (28) Gastritis Status: Acute (29) Hepatitis Status: Acute (30) History of asthma Status: Acute (31) History of atrial fibrillation Status: Acute (32) History of back pain Status: Acute (33) History of gastroesophageal reflux (GERD) Status: Acute (34) Hypercalcemia Status: Acute (35) Hyperlipemia Status: Acute (36) Influenza Status: Acute (37) Leucocytosis Status: Acute (38) Lower extremity pain Status: Acute (39) Multiple myeloma Status: Acute (40) Multiple myeloma Status: Acute (41) Myeloma Status: Acute (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 (43) Occult gastrointestinal hemorrhage Status: Acute (44) Paroxysmal A-fib Status: Acute (45) Pneumonia Status: Acute (46) Prophylactic measure Status: Acute (47) Pulmonary hypertension Status: Acute (48) Pulmonary hypertension Status: Acute (49) Renal failure Status: Acute (50) Respiratory tract infection Status: Acute (51) Streptococcus pneumoniae Status: Acute (52) Symptomatic anemia Status: Acute (53) Vertigo Status: Acute (54) Worsening renal function Status: Acute (55) Anemia Status: Chronic (56) Asthma Status: Chronic (57) Atrial fibrillation Status: Chronic (58) Chronic diastolic (congestive) heart failure Status: Chronic (59) Diabetes Status: Chronic (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 Hospital Course - Lab Results Lab Results: Micro Results 07/23/18 12:50 Naris MRSA Culture - Final MRSA NOT DETECTED 07/15/18 16:00 Blood-Venous Blood Culture - Final NO GROWTH AFTER 5 DAYS 07/15/18 16:00 Blood-Venous Gram Stain - Final TEST NOT PERFORMED 07/15/18 15:30 Blood-Venous Blood Culture - Final NO GROWTH AFTER 5 DAYS 07/15/18 15:30 Blood-Venous Gram Stain - Final TEST NOT PERFORMED 07/14/18 16:50 Naris MRSA Culture (Admit) - Final MRSA DETECTED 07/08/18 15:04 Blood Blood Culture - Final NO GROWTH AFTER 5 DAYS 07/08/18 15:04 Blood Gram Stain - Final TEST NOT PERFORMED 07/08/18 14:45 Blood Blood Culture - Final NO GROWTH AFTER 5 DAYS 07/08/18 14:45 Blood Gram Stain - Final TEST NOT PERFORMED 07/11/18 19:08 Nose MRSA Culture - Final MRSA NOT DETECTED 07/10/18 06:32 Sputum Gram Stain - Final 07/10/18 06:32 Sputum Sputum Culture - Final Yeast Species 07/09/18 19:45 Nose MRSA Culture (Admit) - Final MRSA NOT DETECTED 06/27/18 04:00 Blood Blood Culture - Final NO GROWTH AFTER 5 DAYS 06/27/18 04:00 Blood Gram Stain - Final TEST NOT PERFORMED 06/27/18 04:00 Blood Blood Culture - Final NO GROWTH AFTER 5 DAYS 06/27/18 04:00 Blood Gram Stain - Final TEST NOT PERFORMED 06/26/18 17:51 Blood Blood Culture - Final NO GROWTH AFTER 5 DAYS 06/26/18 17:51 Blood Gram Stain - Final TEST NOT PERFORMED 06/26/18 17:51 Blood Blood Culture - Final NO GROWTH AFTER 5 DAYS 06/26/18 17:51 Blood Gram Stain - Final TEST NOT PERFORMED 06/29/18 14:15 Sputum Gram Stain - Final 06/29/18 14:15 Sputum Sputum Culture - Final NORMAL ORAL [place] 06/29/18 07:11 Urine,Clean Catch Urine Culture - Final Gram Positive Cocci 06/26/18 20:48 Nose MRSA Culture (Admit) - Final MRSA NOT DETECTED Most Recent Lab Values WBC 6.6 K/uL (4.8-10.8) 07/26/18 08:18 RBC 2.68 Mil/uL (3.80-5.20) L 07/26/18 08:18 Hgb 7.8 g/dL (11.0-16.0) L 07/26/18 08:18 Hct 23.7 % (34.0-47.0) L 07/26/18 08:18 MCV 88.4 fL (81.0-99.0) 07/26/18 08:18 MCH 29.0 pg (27.0-31.0) 07/26/18 08:18 MCHC 32.8 g/dL (33.0-37.0) L 07/26/18 08:18 RDW 16.1 % (11.5-14.5) H 07/26/18 08:18 Plt Count 268 K/uL (130-400) 07/26/18 08:18 MPV 9.8 fL (7.2-11.7) 07/26/18 08:18 Neut % (Auto) 79.7 % (50.0-75.0) H 07/21/18 06:13 Lymph % (Auto) 10.4 % (20.0-40.0) L 07/21/18 06:13 Brantley % (Auto) 9.2 % (0.0-10.0) 07/21/18 06:13 Eos % (Auto) 0.2 % (0.0-4.0) 07/21/18 06:13 Baso % (Auto) 0.5 % (0.0-2.0) 07/21/18 06:13 Neut # (Auto) 5.0 K/uL (1.8-7.0) 07/21/18 06:13 Lymph # (Auto) 0.7 K/uL (1.0-4.3) L 07/21/18 06:13 Brantley # (Auto) 0.6 K/uL (0.0-0.8) 07/21/18 06:13 Eos # (Auto) 0.0 K/uL (0.0-0.7) 07/21/18 06:13 Baso # (Auto) 0.0 K/uL (0.0-0.2) 07/21/18 06:13 Neutrophils % (Manual) 88 % (50-75) H 07/20/18 06:14 Band Neutrophils % 1 % (0-2) 07/14/18 07:57 Lymphocytes % (Manual) 8 % (20-40) L 07/20/18 06:14 Monocytes % (Manual) 4 % (0-10) 07/20/18 06:14 Eosinophils % (Manual) 1 % (0-4) 07/14/18 07:57 Differential Comment 07/05/18 07:21 Toxic Granulation Present 07/20/18 06:14 Platelet Estimate Decreased (NORMAL) L 07/20/18 06:14 Large Platelets Present 07/20/18 06:14 Giant Platelets Present 07/20/18 06:14 Polychromasia Slight 07/20/18 06:14 Hypochromasia (manual) Slight 07/20/18 06:14 Poikilocytosis (manual Slight 07/19/18 05:52 Anisocytosis (manual) Slight 07/20/18 06:14 Microcytosis (manual) Slight 06/29/18 05:54 Macrocytosis (manual) Slight 06/29/18 05:54 Spherocytes Slight 07/13/18 09:21 Target Cells Slight 07/19/18 05:52 Tear Drop Cells Slight 07/13/18 09:21 Ovalocytes Slight 07/16/18 06:00 Stomatocytes Slight 07/09/18 07:43 Smear Path Review 07/08/18 07:53 Factor X 128 % (70-150) 07/17/18 11:51 pO2 41 mm/Hg (30-55) 06/25/18 14:55 VBG pH 7.41 (7.32-7.43) 06/25/18 14:55 VBG pCO2 33 mmHg (40-60) L 06/25/18 14:55 VBG HCO3 22.1 mmol/L 06/25/18 14:55 VBG Total CO2 21.9 mmol/L (22-28) L 06/25/18 14:55 VBG O2 Sat (Calc) 82.0 % (40-65) H 06/25/18 14:55 VBG Base Excess -2.9 mmol/L (0.0-2.0) L 06/25/18 14:55 VBG Potassium 2.4 mmol/L (3.6-5.2) L* 06/25/18 14:55 Sodium 146.0 mmol/l (132-148) 06/25/18 14:55 Chloride 117.0 mmol/L (98-107) H 06/25/18 14:55 Glucose 283 mg/dl (65-105) H 06/25/18 14:55 Lactate 1.2 mmol/L (0.7-2.1) 06/25/18 14:55 Crit Value Called To stacy Angulo rn 06/25/18 14:55 Crit Value Called By rt Huber 06/25/18 14:55 Crit Value Read Back Y 06/25/18 14:55 Blood Gas Notified Time 1502 06/25/18 14:55 Sodium 128 mmol/L (132-148) L 07/26/18 08:18 Potassium 4.5 mmol/L (3.6-5.2) 07/26/18 08:18 Chloride 91 mmol/L (98-107) L 07/26/18 08:18 Carbon Dioxide 32 mmol/L (22-30) H 07/26/18 08:18 Anion Gap 9 (10-20) L 07/26/18 08:18 BUN 40 mg/dL (7-17) H 07/26/18 08:18 Creatinine 3.1 mg/dL (0.7-1.2) H 07/26/18 08:18 Est GFR ( Amer) 17 07/26/18 08:18 Est GFR (Non-Af Amer) 14 07/26/18 08:18 POC Glucose (mg/dL) 373 mg/dL (65-110) H 07/26/18 20:58 Random Glucose 315 mg/dL (65-105) H D 07/26/18 08:18 Hemoglobin A1c 8.5 % (4.2-6.5) H D 06/28/18 06:10 Lactic Acid 1.3 mmol/L (0.7-2.1) 07/08/18 15:05 Calcium 7.3 mg/dl (8.6-10.4) L 07/26/18 08:18 Phosphorus 1.4 mg/dL (2.5-4.5) L 07/26/18 08:18 Magnesium 2.0 mg/dL (1.6-2.3) 07/23/18 06:20 Iron 16 ug/dL (37-170) L 06/26/18 09:40 TIBC 134 ug/dL (250-450) L 06/26/18 09:40 % Saturation 11 (20-55) L 07/23/18 06:20 Ferritin > 5000.0 ng/mL 07/23/18 06:20 Total Bilirubin 0.3 mg/dL (0.2-1.3) 07/26/18 08:18 AST 82 U/L (14-36) H D 07/26/18 08:18 ALT 75 U/L (9-52) H 07/26/18 08:18 Alkaline Phosphatase 146 U/L (38-126) H 07/26/18 08:18 Total Creatine Kinase < 20 U/L (30-135) L 06/27/18 06:19 CK-MB (Mass) 0.82 ng/mL (0.0-3.38) 06/27/18 06:19 Troponin I 0.0370 ng/mL (0.00-0.120) 06/27/18 06:19 NT-Pro-B Natriuret Pep 56562 pg/mL (0-900) H 06/25/18 15:20 Total Protein 5.0 g/dL (6.3-8.3) L 07/26/18 08:18 Albumin 2.4 g/dL (3.5-5.0) L 07/26/18 08:18 Globulin 2.6 gm/dL (2.2-3.9) 07/26/18 08:18 Albumin/Globulin Ratio 0.9 (1.0-2.1) L 07/26/18 08:18 Procalcitonin 0.74 NG/ML (0.19-0.49) H 07/08/18 07:53 Free T4 1.23 ng/dL (0.78-2.19) 07/20/18 06:14 Free T3 pg/mL 1.54 pg/mL (2.77-5.27) L 07/17/18 11:51 TSH 3rd Generation 0.96 mIU/L (0.46-4.68) 07/20/18 06:14 Venous Blood Potassium 2.4 mmol/L (3.6-5.2) L* 06/25/18 14:55 Urine Color Julienne (YELLOW) 06/29/18 07:11 Urine Clarity Hazy (Clear) 06/29/18 07:11 Urine pH 5.0 (5.0-8.0) 06/29/18 07:11 Ur Specific Lawrence 1.017 (1.003-1.030) 06/29/18 07:11 Urine Protein Negative mg/dL (NEGATIVE) 06/29/18 07:11 Urine Glucose (UA) Normal mg/dL (Normal) 06/29/18 07:11 Urine Ketones Negative mg/dL (NEGATIVE) 06/29/18 07:11 Urine Blood Negative (NEGATIVE) 06/29/18 07:11 Urine Nitrate Negative (NEGATIVE) 06/29/18 07:11 Urine Bilirubin Negative (NEGATIVE) 06/29/18 07:11 Urine Urobilinogen Normal mg/dL (0.2-1.0) 06/29/18 07:11 Ur Leukocyte Esterase Neg Roman/uL (Negative) 06/29/18 07:11 Urine WBC (Auto) 5 /hpf (0-5) 06/29/18 07:11 Urine RBC (Auto) 6 /hpf (0-3) H 06/29/18 07:11 Ur Squamous Epith Cells 8 /hpf (0-5) H 06/29/18 07:11 Influenza Typ A,B (EIA) Negative for flu a/b (NEGATIVE) 06/28/18 05:40 Blood Type B POSITIVE 07/26/18 10:58 Antibody Screen Negative 07/26/18 10:58 Discharge Exam - Head Exam Head Exam: ATRAUMATIC, NORMAL INSPECTION, NORMOCEPHALIC Discharge Plan - Follow Up Plan Condition: STABLE Disposition: HOME/ ROUTINE Instructions: Atrial Fibrillation (DC), Diabetes Type 2 (DC), Atrial Flutter (DC), Dialysis and Diet, Heart Failure (DC) Additional Instructions: PLACE UNDER THE SERVICE OF DR Denise PENN AT [facility]-----CALL FOR ADMITTING ORDER CONTINUE MEDICATION PER MED REC ACTIVITY TOLERATED AND FACILITY PROTOCOL CALL DR Denise PENN FOR FURTHER ORDER Referrals: Marc Gold MD [Staff Provider] - Lillie Mai MD [Staff Provider] - Rolando Bill MD [Staff Provider] - Noam Luong MD [Staff Provider] - Anup Penn MD [Staff Provider] - Kathleen Martinez MD [Staff Provider] -
[2018-07-27 00:20] VITALS: PULSE 75; RESP 20
[2018-07-27] MEDS: Tiotropium 18 mcg Cap For Inhalation INH SCH (07:49)
[2018-07-27] MEDS: Fluticasone-Vilanterol 200/25mcg Diskus INH SCH (07:49)
[2018-07-27 07:58] VITALS: BP 125/68; TEMP 97.7; O2SAT 95
[2018-07-27] MEDS: (Novolog) Insulin Aspart, Recombinant 100 u/ml 10 ml vial SC SCH (08:31)
[2018-07-27] MEDS: diltiaZEM 240 mg/24 Hours CD Cap PO SCH (09:45)
--- NOTE | 2018-07-28 09:42 | CP.PCM.DIS ---
Provider - Provider Date of Admission: 06/25/18 16:34 Attending physician: Navdeep Penn MD Consults: 06/25/18 16:46 Physician Consult Routine Comment: *REQUESTED BY PMD Consulting Provider: Rolando Bill Consulting Physician: Rolando Bill Reason for Consult: ESRD 06/26/18 02:42 Social Work Referral Routine Comment: On HD Physician Instructions: Reason For Exam: ON HD @ [facility]_W_F 06/26/18 16:16 Pulmonology Consult Routine Comment: Consulting Provider: Lillie Mai Consulting Physician: Lillie Mai Reason for Consult: sob 06/26/18 22:20 Physician Consult Stat Comment: Consulting Provider: Noam Luong Consulting Physician: Noam Luong Reason for Consult: fever? 06/27/18 14:57 Cardiology Consult Routine Comment: Consulting Provider: Marc Gold Consulting Physician: Marc Gold Reason for Consult: Rapid a-fib 07/09/18 14:05 Hematology Oncology Consult Routine Comment: Consulting Provider: Kathleen Martinez Consulting Physician: Kathleen Martinez Reason for Consult: anemia, multiple myeloma 07/09/18 17:29 Palliative Care Consult Routine Comment: Consulting Provider: Holli Thomas Physician Instructions: Reason For Exam: Discuss POLST form, states that pt is DNI status 07/14/18 13:13 Critical Care Consult Routine Comment: Consulting Provider: Jc Stevens Consulting Physician: Jc Stevens Reason for Consult: afib/aflutter 07/20/18 15:36 Wound Care [Nursing Referral for Wound Care] Routine Comment: Physician Instructions: Reason For Exam: rt heel pressure ulcer Time Spent in preparation of Discharge (in minutes): 20 Diagnosis - Discharge Diagnosis (1) CHF exacerbation Status: Acute (2) Dyspnea Status: Acute (3) ESRD (end stage renal disease) on dialysis Status: Acute (4) Uncontrolled diabetes mellitus Status: Acute (5) MARIA EUGENIA (acute kidney injury) Status: Acute (6) Abdominal pain Status: Acute (7) Acute bronchitis Status: Acute (8) Acute kidney injury Status: Acute (9) Acute kidney injury superimposed on chronic kidney disease Status: Acute (10) Acute respiratory failure Status: Acute (11) Anemia Status: Acute (12) Anemia of chronic disease Status: Acute (13) Atrial fibrillation with controlled ventricular response Status: Acute (14) Back pain of thoracolumbar region Status: Acute (15) Bronchitis Status: Acute (16) Bronchitis Status: Acute (17) CHF (congestive heart failure) Status: Acute (18) CHF (congestive heart failure) Status: Acute (19) CKD (chronic kidney disease) stage 3, GFR 30-59 ml/min Status: Acute (20) COPD (chronic obstructive pulmonary disease) Status: Acute (21) COPD exacerbation Status: Acute (22) COPD exacerbation Status: Acute (23) Chest pain Status: Acute (24) ESR raised Status: Acute (25) ESRD (end stage renal disease) Status: Acute (26) Fluid overload Status: Acute (27) Fluid overload, unspecified Status: Acute (28) Gastritis Status: Acute (29) Hepatitis Status: Acute (30) History of asthma Status: Acute (31) History of atrial fibrillation Status: Acute (32) History of back pain Status: Acute (33) History of gastroesophageal reflux (GERD) Status: Acute (34) Hypercalcemia Status: Acute (35) Hyperlipemia Status: Acute (36) Influenza Status: Acute (37) Leucocytosis Status: Acute (38) Lower extremity pain Status: Acute (39) Multiple myeloma Status: Acute (40) Multiple myeloma Status: Acute (41) Myeloma Status: Acute (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 (43) Occult gastrointestinal hemorrhage Status: Acute (44) Paroxysmal A-fib Status: Acute (45) Pneumonia Status: Acute (46) Prophylactic measure Status: Acute (47) Pulmonary hypertension Status: Acute (48) Pulmonary hypertension Status: Acute (49) Renal failure Status: Acute (50) Respiratory tract infection Status: Acute (51) Streptococcus pneumoniae Status: Acute (52) Symptomatic anemia Status: Acute (53) Vertigo Status: Acute (54) Worsening renal function Status: Acute (55) Anemia Status: Chronic (56) Asthma Status: Chronic (57) Atrial fibrillation Status: Chronic (58) Chronic diastolic (congestive) heart failure Status: Chronic (59) Diabetes Status: Chronic (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 Hospital Course - Lab Results Lab Results: Micro Results 07/23/18 12:50 Naris MRSA Culture - Final MRSA NOT DETECTED 07/15/18 16:00 Blood-Venous Blood Culture - Final NO GROWTH AFTER 5 DAYS 07/15/18 16:00 Blood-Venous Gram Stain - Final TEST NOT PERFORMED 07/15/18 15:30 Blood-Venous Blood Culture - Final NO GROWTH AFTER 5 DAYS 07/15/18 15:30 Blood-Venous Gram Stain - Final TEST NOT PERFORMED 07/14/18 16:50 Naris MRSA Culture (Admit) - Final MRSA DETECTED 07/08/18 15:04 Blood Blood Culture - Final NO GROWTH AFTER 5 DAYS 07/08/18 15:04 Blood Gram Stain - Final TEST NOT PERFORMED 07/08/18 14:45 Blood Blood Culture - Final NO GROWTH AFTER 5 DAYS 07/08/18 14:45 Blood Gram Stain - Final TEST NOT PERFORMED 07/11/18 19:08 Nose MRSA Culture - Final MRSA NOT DETECTED 07/10/18 06:32 Sputum Gram Stain - Final 07/10/18 06:32 Sputum Sputum Culture - Final Yeast Species 07/09/18 19:45 Nose MRSA Culture (Admit) - Final MRSA NOT DETECTED 06/27/18 04:00 Blood Blood Culture - Final NO GROWTH AFTER 5 DAYS 06/27/18 04:00 Blood Gram Stain - Final TEST NOT PERFORMED 06/27/18 04:00 Blood Blood Culture - Final NO GROWTH AFTER 5 DAYS 06/27/18 04:00 Blood Gram Stain - Final TEST NOT PERFORMED 06/26/18 17:51 Blood Blood Culture - Final NO GROWTH AFTER 5 DAYS 06/26/18 17:51 Blood Gram Stain - Final TEST NOT PERFORMED 06/26/18 17:51 Blood Blood Culture - Final NO GROWTH AFTER 5 DAYS 06/26/18 17:51 Blood Gram Stain - Final TEST NOT PERFORMED 06/29/18 14:15 Sputum Gram Stain - Final 06/29/18 14:15 Sputum Sputum Culture - Final NORMAL ORAL ALEXNADRIA 06/29/18 07:11 Urine,Clean Catch Urine Culture - Final Gram Positive Cocci 06/26/18 20:48 Nose MRSA Culture (Admit) - Final MRSA NOT DETECTED Most Recent Lab Values WBC 6.6 K/uL (4.8-10.8) 07/26/18 08:18 RBC 2.68 Mil/uL (3.80-5.20) L 07/26/18 08:18 Hgb 7.8 g/dL (11.0-16.0) L 07/26/18 08:18 Hct 23.7 % (34.0-47.0) L 07/26/18 08:18 MCV 88.4 fL (81.0-99.0) 07/26/18 08:18 MCH 29.0 pg (27.0-31.0) 07/26/18 08:18 MCHC 32.8 g/dL (33.0-37.0) L 07/26/18 08:18 RDW 16.1 % (11.5-14.5) H 07/26/18 08:18 Plt Count 268 K/uL (130-400) 07/26/18 08:18 MPV 9.8 fL (7.2-11.7) 07/26/18 08:18 Neut % (Auto) 79.7 % (50.0-75.0) H 07/21/18 06:13 Lymph % (Auto) 10.4 % (20.0-40.0) L 07/21/18 06:13 Baker % (Auto) 9.2 % (0.0-10.0) 07/21/18 06:13 Eos % (Auto) 0.2 % (0.0-4.0) 07/21/18 06:13 Baso % (Auto) 0.5 % (0.0-2.0) 07/21/18 06:13 Neut # (Auto) 5.0 K/uL (1.8-7.0) 07/21/18 06:13 Lymph # (Auto) 0.7 K/uL (1.0-4.3) L 07/21/18 06:13 Baker # (Auto) 0.6 K/uL (0.0-0.8) 07/21/18 06:13 Eos # (Auto) 0.0 K/uL (0.0-0.7) 07/21/18 06:13 Baso # (Auto) 0.0 K/uL (0.0-0.2) 07/21/18 06:13 Neutrophils % (Manual) 88 % (50-75) H 07/20/18 06:14 Band Neutrophils % 1 % (0-2) 07/14/18 07:57 Lymphocytes % (Manual) 8 % (20-40) L 07/20/18 06:14 Monocytes % (Manual) 4 % (0-10) 07/20/18 06:14 Eosinophils % (Manual) 1 % (0-4) 07/14/18 07:57 Differential Comment 07/05/18 07:21 Toxic Granulation Present 07/20/18 06:14 Platelet Estimate Decreased (NORMAL) L 07/20/18 06:14 Large Platelets Present 07/20/18 06:14 Giant Platelets Present 07/20/18 06:14 Polychromasia Slight 07/20/18 06:14 Hypochromasia (manual) Slight 07/20/18 06:14 Poikilocytosis (manual Slight 07/19/18 05:52 Anisocytosis (manual) Slight 07/20/18 06:14 Microcytosis (manual) Slight 06/29/18 05:54 Macrocytosis (manual) Slight 06/29/18 05:54 Spherocytes Slight 07/13/18 09:21 Target Cells Slight 07/19/18 05:52 Tear Drop Cells Slight 07/13/18 09:21 Ovalocytes Slight 07/16/18 06:00 Stomatocytes Slight 07/09/18 07:43 Smear Path Review 07/08/18 07:53 Factor X 128 % (70-150) 07/17/18 11:51 pO2 41 mm/Hg (30-55) 06/25/18 14:55 VBG pH 7.41 (7.32-7.43) 06/25/18 14:55 VBG pCO2 33 mmHg (40-60) L 06/25/18 14:55 VBG HCO3 22.1 mmol/L 06/25/18 14:55 VBG Total CO2 21.9 mmol/L (22-28) L 06/25/18 14:55 VBG O2 Sat (Calc) 82.0 % (40-65) H 06/25/18 14:55 VBG Base Excess -2.9 mmol/L (0.0-2.0) L 06/25/18 14:55 VBG Potassium 2.4 mmol/L (3.6-5.2) L* 06/25/18 14:55 Sodium 146.0 mmol/l (132-148) 06/25/18 14:55 Chloride 117.0 mmol/L (98-107) H 06/25/18 14:55 Glucose 283 mg/dl (65-105) H 06/25/18 14:55 Lactate 1.2 mmol/L (0.7-2.1) 06/25/18 14:55 Crit Value Called To stacy Angulo rn 06/25/18 14:55 Crit Value Called By rt Huber 06/25/18 14:55 Crit Value Read Back Y 06/25/18 14:55 Blood Gas Notified Time 1502 06/25/18 14:55 Sodium 128 mmol/L (132-148) L 07/26/18 08:18 Potassium 4.5 mmol/L (3.6-5.2) 07/26/18 08:18 Chloride 91 mmol/L (98-107) L 07/26/18 08:18 Carbon Dioxide 32 mmol/L (22-30) H 07/26/18 08:18 Anion Gap 9 (10-20) L 07/26/18 08:18 BUN 40 mg/dL (7-17) H 07/26/18 08:18 Creatinine 3.1 mg/dL (0.7-1.2) H 07/26/18 08:18 Est GFR ( Amer) 17 07/26/18 08:18 Est GFR (Non-Af Amer) 14 07/26/18 08:18 POC Glucose (mg/dL) 164 mg/dL (65-110) H 07/27/18 06:14 Random Glucose 315 mg/dL (65-105) H D 07/26/18 08:18 Hemoglobin A1c 8.5 % (4.2-6.5) H D 06/28/18 06:10 Lactic Acid 1.3 mmol/L (0.7-2.1) 07/08/18 15:05 Calcium 7.3 mg/dl (8.6-10.4) L 07/26/18 08:18 Phosphorus 1.4 mg/dL (2.5-4.5) L 07/26/18 08:18 Magnesium 2.0 mg/dL (1.6-2.3) 07/23/18 06:20 Iron 16 ug/dL (37-170) L 06/26/18 09:40 TIBC 134 ug/dL (250-450) L 06/26/18 09:40 % Saturation 11 (20-55) L 07/23/18 06:20 Ferritin > 5000.0 ng/mL 07/23/18 06:20 Total Bilirubin 0.3 mg/dL (0.2-1.3) 07/26/18 08:18 AST 82 U/L (14-36) H D 07/26/18 08:18 ALT 75 U/L (9-52) H 07/26/18 08:18 Alkaline Phosphatase 146 U/L (38-126) H 07/26/18 08:18 Total Creatine Kinase < 20 U/L (30-135) L 06/27/18 06:19 CK-MB (Mass) 0.82 ng/mL (0.0-3.38) 06/27/18 06:19 Troponin I 0.0370 ng/mL (0.00-0.120) 06/27/18 06:19 NT-Pro-B Natriuret Pep 83437 pg/mL (0-900) H 06/25/18 15:20 Total Protein 5.0 g/dL (6.3-8.3) L 07/26/18 08:18 Albumin 2.4 g/dL (3.5-5.0) L 07/26/18 08:18 Globulin 2.6 gm/dL (2.2-3.9) 07/26/18 08:18 Albumin/Globulin Ratio 0.9 (1.0-2.1) L 07/26/18 08:18 Procalcitonin 0.74 NG/ML (0.19-0.49) H 07/08/18 07:53 Free T4 1.23 ng/dL (0.78-2.19) 07/20/18 06:14 Free T3 pg/mL 1.54 pg/mL (2.77-5.27) L 07/17/18 11:51 TSH 3rd Generation 0.96 mIU/L (0.46-4.68) 07/20/18 06:14 Venous Blood Potassium 2.4 mmol/L (3.6-5.2) L* 06/25/18 14:55 Urine Color Julienne (YELLOW) 06/29/18 07:11 Urine Clarity Hazy (Clear) 06/29/18 07:11 Urine pH 5.0 (5.0-8.0) 06/29/18 07:11 Ur Specific [place] 1.017 (1.003-1.030) 06/29/18 07:11 Urine Protein Negative mg/dL (NEGATIVE) 06/29/18 07:11 Urine Glucose (UA) Normal mg/dL (Normal) 06/29/18 07:11 Urine Ketones Negative mg/dL (NEGATIVE) 06/29/18 07:11 Urine Blood Negative (NEGATIVE) 06/29/18 07:11 Urine Nitrate Negative (NEGATIVE) 06/29/18 07:11 Urine Bilirubin Negative (NEGATIVE) 06/29/18 07:11 Urine Urobilinogen Normal mg/dL (0.2-1.0) 06/29/18 07:11 Ur Leukocyte Esterase Neg Roman/uL (Negative) 06/29/18 07:11 Urine WBC (Auto) 5 /hpf (0-5) 06/29/18 07:11 Urine RBC (Auto) 6 /hpf (0-3) H 06/29/18 07:11 Ur Squamous Epith Cells 8 /hpf (0-5) H 06/29/18 07:11 Influenza Typ A,B (EIA) Negative for flu a/b (NEGATIVE) 06/28/18 05:40 Blood Type B POSITIVE 07/26/18 10:58 Antibody Screen Negative 07/26/18 10:58 - Hospital Course Hospital Course: Patient with multiple medical problems admitted with on and off fever is a second admission seen by Dr. He treated for positive blood cultures with micafungin and multiple IV antibiotic also seen by Dr. Martinez for multiple myeloma patient continue to get hemodialysis eventually patient was discharged to [facility] patient got much better patient was afebrile discussed with Dr. He before the discharge eventually micafungin was discontinued 2 days ago discussed with the brother who is that every single day Eloy patient is continue to get a dialysis Discharge Exam - Head Exam Head Exam: ATRAUMATIC, NORMAL INSPECTION, NORMOCEPHALIC - Eye Exam Eye Exam: EOMI, Normal appearance, PERRL Pupil Exam: NORMAL ACCOMODATION, PERRL - ENT Exam ENT Exam: Normal Exam, Normal External Ear Exam - Neck Exam Neck exam: Full Rom - Respiratory Exam Respiratory Exam: Decreased Breath Sounds, Rales - Cardiovascular Exam Cardiovascular Exam: REGULAR RHYTHM, +S1, +S2 - GI/Abdominal Exam GI & Abdominal Exam: Diminished Bowel Sounds, Distended - Rectal Exam Rectal Exam: Deferred - Neurological Exam Neurological exam: Oriented x3 Discharge Plan - Follow Up Plan Condition: STABLE Disposition: REHAB FACILITY/REHAB UNIT Instructions: Atrial Fibrillation (DC), Diabetes Type 2 (DC), Atrial Flutter (DC), Dialysis and Diet, Heart Failure (DC), Acute Abdominal Pain (DC), Acute Abdominal Pain (GEN) Additional Instructions: PLACE UNDER THE SERVICE OF DR Denise PENN AT THE REHAB-----CALL FOR ADMITTING ORDER CONTINUE MEDICATION PER MED REC ACTIVITY TOLERATED AND FACILITY PROTOCOL CALL DR Denise PENN FOR FURTHER ORDER Referrals: Marc Gold MD [Staff Provider] - Lillie Mai MD [Staff Provider] - Rolando Bill MD [Staff Provider] - Noam Luong MD [Staff Provider] - Anup Penn MD [Staff Provider] - Kathleen Martinez MD [Staff Provider] -
== END 2018-07-27 10:30 | DRG 291 ==
LOC: C.ER 13:57 → C.9E 16:34 → C.6T 20:50 → C.9I 06-26 18:54 → C.6T 07-04 10:01 → C.9I 07-09 14:12 → C.6T 07-11 17:43 → C.9I 07-14 13:23 → C.5S 07-23 11:55
PROVIDERS: ADMIT Internal Medicine Nephrology; ATTEND Internal Medicine Nephrology
PROC: 5A1D70Z Performance of Urinary Filtration, Intermittent, Less than 6 Hours Per Day (ICD-10-PCS; principal; 2018-06-26)
PROC: 5A1D70Z Performance of Urinary Filtration, Intermittent, Less than 6 Hours Per Day (ICD-10-PCS; 2018-06-28)
PROC: 5A1D70Z Performance of Urinary Filtration, Intermittent, Less than 6 Hours Per Day (ICD-10-PCS; 2018-07-01)
PROC: 5A1D70Z Performance of Urinary Filtration, Intermittent, Less than 6 Hours Per Day (ICD-10-PCS; 2018-07-03)
PROC: 5A1D70Z Performance of Urinary Filtration, Intermittent, Less than 6 Hours Per Day (ICD-10-PCS; 2018-07-05)
PROC: 5A1D70Z Performance of Urinary Filtration, Intermittent, Less than 6 Hours Per Day (ICD-10-PCS; 2018-07-08)
PROC: 5A1D70Z Performance of Urinary Filtration, Intermittent, Less than 6 Hours Per Day (ICD-10-PCS; 2018-07-09)
PROC: 5A1D70Z Performance of Urinary Filtration, Intermittent, Less than 6 Hours Per Day (ICD-10-PCS; 2018-07-12)
PROC: 5A1D70Z Performance of Urinary Filtration, Intermittent, Less than 6 Hours Per Day (ICD-10-PCS; 2018-07-15)
PROC: 5A1D70Z Performance of Urinary Filtration, Intermittent, Less than 6 Hours Per Day (ICD-10-PCS; 2018-07-17)
PROC: 5A1D70Z Performance of Urinary Filtration, Intermittent, Less than 6 Hours Per Day (ICD-10-PCS; 2018-07-19)
PROC: 5A1D70Z Performance of Urinary Filtration, Intermittent, Less than 6 Hours Per Day (ICD-10-PCS; 2018-07-22)
PROC: 5A1D70Z Performance of Urinary Filtration, Intermittent, Less than 6 Hours Per Day (ICD-10-PCS; 2018-07-24)
PROC: 30233N1 Transfusion of Nonautologous Red Blood Cells into Peripheral Vein, Percutaneous Approach (ICD-10-PCS; 2018-07-26)
PROC: 5A1D70Z Performance of Urinary Filtration, Intermittent, Less than 6 Hours Per Day (ICD-10-PCS; 2018-07-26)
DX: I13.2 Hypertensive heart and chronic kidney disease with heart failure and with stage 5 chronic kidney disease, or end stage renal disease (principal); I50.33 Acute on chronic diastolic (congestive) heart failure; N18.6 End stage renal disease; E11.65 Type 2 diabetes mellitus with hyperglycemia; J96.00 Acute respiratory failure, unspecified whether with hypoxia or hypercapnia; C90.00 Multiple myeloma not having achieved remission; I47.1 Supraventricular tachycardia; I48.92 Unspecified atrial flutter; J44.1 Chronic obstructive pulmonary disease with (acute) exacerbation; N39.0 Urinary tract infection, site not specified; K92.2 Gastrointestinal hemorrhage, unspecified; E11.22 Type 2 diabetes mellitus with diabetic chronic kidney disease; D63.1 Anemia in chronic kidney disease; D72.828 Other elevated white blood cell count; E03.9 Hypothyroidism, unspecified; E83.52 Hypercalcemia; E05.90 Thyrotoxicosis, unspecified without thyrotoxic crisis or storm; F41.9 Anxiety disorder, unspecified; I27.20 Pulmonary hypertension, unspecified; I48.0 Paroxysmal atrial fibrillation; I48.2 Chronic atrial fibrillation; I77.819 Aortic ectasia, unspecified site; R62.7 Adult failure to thrive; L28.0 Lichen simplex chronicus; I95.3 Hypotension of hemodialysis; R04.0 Epistaxis; K75.9 Inflammatory liver disease, unspecified; K21.9 Gastro-esophageal reflux disease without esophagitis; E78.5 Hyperlipidemia, unspecified; E78.00 Pure hypercholesterolemia, unspecified; T38.0X5A Adverse effect of glucocorticoids and synthetic analogues, initial encounter; Z87.01 Personal history of pneumonia (recurrent); Z79.01 Long term (current) use of anticoagulants; Z79.4 Long term (current) use of insulin; Z99.2 Dependence on renal dialysis; Z99.81 Dependence on supplemental oxygen; Z87.891 Personal history of nicotine dependence

== ENCOUNTER 2018-08-01 01:40 | Emergency (ER) | payer MEDICARE ==
[2018-08-01 01:41] VITALS: PULSE 148; BMI 29.7
[2018-08-01] MEDS ORDERED: Phenylephrine 1% Nasal Spray (15 ml) ONE (02:20)
[2018-08-01] MEDS ORDERED: Phenylephrine 1% Nasal Spray (15 ml) NAS STA (02:32)
[2018-08-01 02:37] VITALS: RESP 20
[2018-08-01 02:37] LABS: BASO % 0.1 % (0.0-2.0); LYMPH # 1.8 K/uL (1.0-4.3); MEAN CELL VOLUME 87.8 fL (81.0-99.0); MEAN CORPUSCULAR HEMOGLOBIN 27.7 pg (27.0-31.0); MEAN CORPUSCULAR HGB CONC 31.5 g/dL (33.0-37.0); MEAN PLATELET VOLUME 9.4 fL (7.2-11.7); MONO # 1.8 K/uL (0.0-0.8); NEUT # 12.5 K/uL (1.8-7.0); NEUT % 77.9 % (50.0-75.0); NRBC % 0.2 % (0.0-2.0); RBC 3.61 Mil/uL (3.80-5.20); RED CELL DISTRIBUTION WIDTH 15.8 % (11.5-14.5)
--- NOTE | 2018-08-01 02:38 | C.PDOC ---
History Of Present Illness 83 year old female with PMHx of anemia is sent to the ED from her [facility] for evaluation of nose bleed. Patient's last Hb on 07/26 was 7.8 and 23.7. Patient denies headache, visual changes, neck pain, rash, CP, SOB, palpitations, weakness, numbness, injury, fall, trauma. Chief Complaint (Nursing): ENT Problem History Per: Patient, EMS History/Exam Limitations: None Onset/Duration Of Symptoms: Hrs Current Symptoms Are (Timing): Still Present Symptoms Have Been: Continuous Recent Aspirin Use: Unknown Past Medical History Reviewed: Historical Data, Nursing Documentation, Vital Signs Vital Signs: Last Vital Signs Temp 98.2 F 08/01/18 02:00 Pulse 91 H 08/01/18 02:00 Resp 20 08/01/18 02:00 BP 96/36 L 08/01/18 02:00 Pulse Ox 97 08/01/18 02:00 - Medical History PMH: Anemia, Arthritis, Atrial Fibrillation, Cardia Arrhythmia, CHF, COPD, HTN, Hypercholesterolemia, Hyperlipidemia, Hypothyroidism, End Stage Renal Disease, Chronic Kidney Disease Denies: Kidney Stones Surgical History: Endoscopy - [facility] Procedures (06/25/18) EXCISION OF STOMACH, ENDO, DIAGN (06/28/16) EXTRACTION OF ILIAC BONE MARROW, PERC APPROACH, DIAGN (12/25/16) FLUOROSCOPY OF SUP VENA CAVA USING L OSM CONTRAST, GUIDANCE (12/25/16) INSERT VAD RESERVOIR IN CHEST SUBCU/FASCIA, OPEN (12/25/16) INSERTION OF INFUSION DEV INTO SUP VENA CAVA, PERC APPROACH (12/25/16) INSPECTION OF LOWER INTESTINAL TRACT, ENDO (06/28/16) INSPECTION OF UPPER INTESTINAL TRACT, ENDO (09/25/16) INTRODUCE OTH ANTINEOPLASTIC IN CENTRAL VEIN, PERC (12/25/16) PERFORMANCE OF URINARY FILTRATION, MULTIPLE (12/25/16) JUDAISM OF CARDIAC RHYTHM, SINGLE (05/01/18) TRANSFUSE NONAUT RED BLOOD CELLS IN PERIPH VEIN, PERC (06/25/18) Family History: States: Unknown Family Hx - Social History Hx Tobacco Use: No Hx Alcohol Use: No Hx Substance Use: No - Immunization History Hx Tetanus Toxoid Vaccination: No Hx Influenza Vaccination: Yes Hx Pneumococcal Vaccination: Yes Review Of Systems Constitutional: Negative for: Fever, Chills ENT: Positive for: Nose Discharge Cardiovascular: Negative for: Chest Pain, Palpitations Respiratory: Negative for: Cough, Shortness of Breath Gastrointestinal: Negative for: Nausea, Vomiting, Abdominal Pain Skin: Negative for: Rash Neurological: Negative for: Weakness, Numbness, Headache Physical Exam - Physical Exam Appears: Non-toxic, No Acute Distress Skin: Normal Color, Warm, Dry Head: Atraumatic, Normacephalic Eye(s): bilateral: Normal Inspection Nose: No Epistaxis, Other (right nostril slightly congested) Oral Mucosa: Moist Throat: Normal, No Erythema, No Exudate, No Other (post nasal drip) Neck: Normal ROM, Supple Chest: Symmetrical Cardiovascular: Rhythm Regular Respiratory: Normal Breath Sounds, No Rales, No Rhonchi, No Wheezing Extremity: Normal ROM, No Tenderness, No Swelling Neurological/Psych: Oriented x3, Normal Speech, Normal Cognition Gait: Steady ED Course And Treatment - Laboratory Results Result Diagrams: 08/01/18 02:31 08/01/18 02:31 O2 Sat by Pulse Oximetry: 97 (ON RA) Pulse Ox Interpretation: Normal Medical Decision Making Medical Decision Making: Plan: * Labs * Phenylephrineprine nasal spray Disposition Discussed With DrAnna: Reginald Mistry Counseled Patient/Family Regarding: Diagnosis - Disposition Referrals: Reginald Mistry DO [[facility]] - Disposition: TRANSF TO SNF Disposition Time: 02:55 Condition: STABLE Prescriptions: Oxymetazoline 0.05% [Oxymetazoline HCl 30 Ml] 2 spray NS Q6 3 Days #1 bottle Instructions: Nosebleeds (DC) Forms: [facility] (Maltese) - POA Present On Arrival: None - Clinical Impression Clinical Impression: Anterior epistaxis - Scribe Statement The provider has reviewed the documentation as recorded by the Scribe Malcom He All medical record entries made by the Scribe were at my direction and personally dictated by me. I have reviewed the chart and agree that the record accurately reflects my personal performance of the history, physical exam, medical decision making, and the department course for this patient. I have also personally directed, reviewed, and agree with the discharge instructions and disposition.
[2018-08-01 02:39] LABS: INR 1.5; PROTHROMBIN TIME 16.5 SECONDS (9.7-12.2)
[2018-08-01 02:52] LABS: ALB/GLOB RATIO 0.9 (1.0-2.1); ALBUMIN 2.6 g/dL (3.5-5.0); CALCIUM 8.3 mg/dl (8.6-10.4)
[2018-08-01 04:13] VITALS: BP 112/62; PULSE 71; TEMP 97.1; O2SAT 96
== END 2018-08-01 04:11 ==
LOC: C.ER 01:40
DX: R04.0 Epistaxis (principal)

== ENCOUNTER 2018-08-20 16:50 | Observation (INO) | payer MEDICARE ==
[2018-08-20 16:50] VITALS: PULSE 148; BMI 29.7
--- NOTE | 2018-08-20 17:44 | C.PDOC ---
History Of Present Illness 83 year old female referred to ED from skilled nursing for recurrant anemia of unknown duration. Patient has a PMHx of hypertension, hypothyroidism, A-fib, diabetes mellitius, anemia, multiple myeloma, CHF, chronic pain, and COPD. Abdoulaye nt was admitted on 07/2018 s/p recent transfusion. Patient is s/p hemodialysis 08/19. She denies chest pain, SOB, abdominal pain, nausea, and vomiting. REFERRED FROM [place] FOR RECUR ANEMIA UNK DURATION. PMhx HTN, hypothyroidism, A-fib, DM, anemia, multiple myeloma, CHF, CHRONIC PAIN and COPD. ADMITTED 07/2018 S/P RECENT TRANSFUSION. NO CP SOB ABD PAIN NV. S/P ROUTINE HD 08/19 EXAM NONTOXIC +CONJ PALLOR REMAINDER NEG Time Seen by Provider: 08/20/18 17:40 Chief Complaint (Nursing): Abnormal Labs History Per: Patient, Other (skilled nursing) History/Exam Limitations: no limitations Onset/Duration Of Symptoms: Unknown Current Symptoms Are (Timing): Still Present Past Medical History Reviewed: Historical Data, Nursing Documentation, Vital Signs Vital Signs: Last Vital Signs Temp 98.4 F 08/20/18 17:00 Pulse 76 08/20/18 17:00 Resp 18 08/20/18 17:00 BP 89/23 L 08/20/18 17:00 Pulse Ox 99 08/20/18 17:12 Primary Care Provider: Kenneth Mistry Medical History PMH: Anemia, Arthritis, Atrial Fibrillation, Cardia Arrhythmia, CHF, COPD, Diabetes, HTN, Hypercholesterolemia, Hyperlipidemia, Hypothyroidism, End Stage Renal Disease, Chronic Kidney Disease Denies: Kidney Stones Surgical History: Endoscopy - [facility] Procedures (06/25/18) EXCISION OF STOMACH, ENDO, DIAGN (06/28/16) EXTRACTION OF ILIAC BONE MARROW, PERC APPROACH, DIAGN (12/25/16) FLUOROSCOPY OF SUP VENA CAVA USING L OSM CONTRAST, GUIDANCE (12/25/16) INSERT VAD RESERVOIR IN CHEST SUBCU/FASCIA, OPEN (12/25/16) INSERTION OF INFUSION DEV INTO SUP VENA CAVA, PERC APPROACH (12/25/16) INSPECTION OF LOWER INTESTINAL TRACT, ENDO (06/28/16) INSPECTION OF UPPER INTESTINAL TRACT, ENDO (09/25/16) INTRODUCE OTH ANTINEOPLASTIC IN CENTRAL VEIN, PERC (12/25/16) PERFORMANCE OF URINARY FILTRATION, MULTIPLE (12/25/16) PRESYBETERIAN OF CARDIAC RHYTHM, SINGLE (05/01/18) TRANSFUSE NONAUT RED BLOOD CELLS IN PERIPH VEIN, PERC (06/25/18) Family History: States: Unknown Family Hx - Social History Hx Tobacco Use: No Hx Alcohol Use: No Hx Substance Use: No - Immunization History Hx Tetanus Toxoid Vaccination: No Hx Influenza Vaccination: Yes Hx Pneumococcal Vaccination: Yes Review Of Systems Except As Marked, All Systems Reviewed And Found Negative. Constitutional: Positive for: Other (anemia) Physical Exam - Physical Exam Appears: Non-toxic, No Acute Distress Skin: Dry, Pale Head: Atraumatic, Normacephalic Eye(s): bilateral: PERRL, EOMI, Conjunctiva Pale Neck: Normal ROM, Supple Chest: Symmetrical, No Deformity Cardiovascular: Rhythm Regular, No Murmur Respiratory: No Accessory Muscle Use, No Rales, No Rhonchi, No Wheezing, Other (NARD) Gastrointestinal/Abdominal: Soft, No Tenderness Extremity: Capillary Refill (<2 seconds) Extremity: Bilateral: Atraumatic, Normal Color And Temperature, Normal ROM Pulses: Left Radial: Normal, Right Radial: Normal Neurological/Psych: Oriented x3, Normal Speech, Normal Cognition Gait: Steady ED Course And Treatment - Laboratory Results Result Diagrams: 08/21/18 08:26 08/21/18 08:26 ECG: Interpreted By Me ECG Rhythm: Sinus Rhythm ECG Interpretation: Normal Rate From EC O2 Sat by Pulse Oximetry: 99 Pulse Ox Interpretation: Normal - Radiology CXR: Interpreted by Me CXR Interpretation: Yes: Other (CHF COMPARED TO PRIOR) Progress Note: Labs ordered with type and screen, CMP, and CBC. EKG and CXR ordered for patient. Progress - Re-Evaluation Re-evaluation Note: 08/20/18 17:46 DW/ DR Denise COX WILL ADMIT. DR RAMIREZ, DR WELCH - Data Reviewed Data Reviewed: Lab, Diagnostic imaging, EKG, Old records Disposition Counseled Patient/Family Regarding: Studies Performed, Diagnosis - Disposition Disposition: HOSPITALIZED Disposition Time: 17:46 Condition: STABLE - Clinical Impression Clinical Impression: Symptomatic anemia, ESRD (end stage renal disease) - Scribe Statement The provider has reviewed the documentation as recorded by the Scribe (Trupti Pacheco) All medical record entries made by the Scribe were at my direction and pers onally dictated by me. I have reviewed the chart and agree that the record accurately reflects my personal performance of the history, physical exam, medical decision making, and the department course for this patient. I have also personally directed, reviewed, and agree with the discharge instructions and disposition.
[2018-08-20 18:01] LABS: BASO % 0.1 % (0.0-2.0); LYMPH # 1.6 K/uL (1.0-4.3); LYMPH % 8.4 % (20.0-40.0); MEAN CELL VOLUME 84.5 fL (81.0-99.0); MEAN CORPUSCULAR HEMOGLOBIN 26.4 pg (27.0-31.0); MEAN CORPUSCULAR HGB CONC 31.2 g/dL (33.0-37.0); MEAN PLATELET VOLUME 10.2 fL (7.2-11.7); MONO % 5.2 % (0.0-10.0); NEUT # 16.4 K/uL (1.8-7.0); NEUT % 86.3 % (50.0-75.0); PLATELET COUNT 219 K/uL (130-400); RBC 2.13 Mil/uL (3.80-5.20); RED CELL DISTRIBUTION WIDTH 16.4 % (11.5-14.5)
[2018-08-20 18:14] LABS: ALB/GLOB RATIO 0.8 (1.0-2.1); ALBUMIN 2.6 g/dL (3.5-5.0)
[2018-08-20 18:18] LABS: HEMOGLOBIN 5.6 g/dL (11.0-16.0)
--- NOTE | 2018-08-20 19:25 | CP.PCM.HP ---
Past Patient History - Infectious Disease Hx of Infectious Diseases: None - Past Medical History & Family History Past Medical History?: Yes - Past Social History Smoking Status: Former Smoker - CARDIAC Hx Atrial Fibrillation: Yes Hx Cardia Arrhythmia: Yes Hx Congestive Heart Failure: Yes Hx Hypercholesterolemia: Yes Hx Hypertension: Yes - PULMONARY Hx Chronic Obstructive Pulmonary Disease (COPD): Yes - NEUROLOGICAL Hx Neurological Disorder: No - HEENT Hx HEENT Problems: Yes Hx Cataracts: Yes (bilateral) - RENAL Hx Chronic Kidney Disease: Yes Hx Kidney Stones: No - ENDOCRINE/METABOLIC Hx Hypothyroidism: Yes - HEMATOLOGICAL/ONCOLOGICAL Hx Anemia: Yes - INTEGUMENTARY Hx Dermatological Problems: No - MUSCULOSKELETAL/RHEUMATOLOGICAL Hx Arthritis: Yes - GASTROINTESTINAL Hx Gastrointestinal Disorders: Yes Hx Hemorrhoids: Yes - GENITOURINARY/GYNECOLOGICAL Hx Genitourinary Disorders: No - PSYCHIATRIC Hx Substance Use: No - SURGICAL HISTORY Hx Surgeries: Yes Hx Arteriovenous Shunt: Yes (LEFT ARM AV ,permacath) Hx Vascular Access Device: Yes (perma cath elaina cath) - ANESTHESIA Hx Anesthesia: Yes Hx Anesthesia Reactions: No Hx Malignant Hyperthermia: No Meds Allergies/Adverse Reactions: Allergies Allergy/AdvReac Type Severity Reaction Status Date / Time No Known Allergies Allergy Verified 08/01/18 01:56 Physical Exam - Constitutional Appears: Well - Head Exam Head Exam: ATRAUMATIC, NORMAL INSPECTION, NORMOCEPHALIC - Eye Exam Eye Exam: EOMI, Normal appearance, PERRL Pupil Exam: NORMAL ACCOMODATION, PERRL - ENT Exam ENT Exam: Mucous Membranes Moist, Normal Exam - Neck Exam Neck exam: Positive for: Normal Inspection - Respiratory Exam Respiratory Exam: Decreased Breath Sounds - Cardiovascular Exam Cardiovascular Exam: REGULAR RHYTHM, +S1, +S2 - GI/Abdominal Exam GI & Abdominal Exam: Diminished Bowel Sounds, Soft - Rectal Exam Rectal Exam: Deferred - Neurological Exam Neurological exam: Oriented x3 Results - Vital Signs Recent Vital Signs: Last Vital Signs Temp 98.4 F 08/20/18 17:00 Pulse 74 08/20/18 18:11 Resp 22 08/20/18 18:11 BP 104/38 L 08/20/18 18:11 Pulse Ox 99 08/20/18 18:48 - Labs Result Diagrams: 08/20/18 17:55 08/20/18 17:55 Labs: Laboratory Results - last 24 hr 08/20/18 08/20/18 08/20/18 17:55 17:55 17:55 WBC 19.0 H RBC 2.13 L Hgb 5.6 L* D Hct 18.0 L MCV 84.5 D MCH 26.4 L MCHC 31.2 L RDW 16.4 H Plt Count 219 MPV 10.2 Neut % (Auto) 86.3 H Lymph % (Auto) 8.4 L [place]ink % (Auto) 5.2 Eos % (Auto) 0.0 Baso % (Auto) 0.1 Neut # (Auto) 16.4 H Lymph # (Auto) 1.6 [place] # (Auto) 1.0 H Eos # (Auto) 0.0 Baso # (Auto) 0.0 Sodium 136 Potassium 3.4 L Chloride 92 L Carbon Dioxide 33 H Anion Gap 14 BUN 43 H Creatinine 2.2 H Est GFR ( Amer) 26 Est GFR (Non-Af Amer) 21 Random Glucose 220 H Calcium 8.0 L Total Bilirubin 0.4 AST 26 ALT 26 Alkaline Phosphatase 197 H Total Protein 5.8 L Albumin 2.6 L Globulin 3.2 Albumin/Globulin Ratio 0.8 L Blood Type B POSITIVE Antibody Screen Negative
[2018-08-20 20:17] LABS: LYMPHOCYTE 6 % (20-40); MONOCYTE 3 % (0-10); NEUTROPHIL 91 % (50-75); TOTAL CELLS COUNTED 100
[2018-08-20 20:18] LABS: HYPOCHROMIC SLIGHT; PLATELET ESTIMATE NORMAL (NORMAL)
[2018-08-20] MEDS ORDERED: Magnesium Hydroxide Susp 30 ml UD PO PRN (21:21)
[2018-08-20] MEDS ORDERED: Home Med 1 UNIT (Melatonin [Melatonin] 3 MG) PO PRN (21:21)
[2018-08-20] MEDS ORDERED: Potassium Chloride 20 mEq ER Tab PO ONE (22:15)
[2018-08-20] MEDS: Insulin Detemir 100 units/ml Vial (Levemir) SC SCH (22:43)
--- NOTE | 2018-08-21 07:51 | RAD ---
Chest x-ray single frontal view HISTORY: Shortness of breath. COMPARISON: 06/25/2018 Findings: Moderate to severe venous congestion. Confluent airspace consolidation in the left mid to lower lung zone and right lung base. Bilateral pleural effusions. Left central venous catheter tip extending to the cavoatrial junction. Large ectatic aorta. Cardiomegaly. Degenerative changes in the spine and shoulders. Impression: Moderate to severe venous congestion. Confluent airspace consolidation in the left mid to lower lung zone and right lung base. Bilateral hilar prominence. Bilateral pleural effusions. Left central venous catheter tip extending to the cavoatrial junction. Large ectatic aorta. Cardiomegaly.
[2018-08-21 08:35] LABS: BASO # 0.1 K/uL (0.0-0.2); BASO % 0.4 % (0.0-2.0)
[2018-08-21 08:46] LABS: EOS % 0.1 % (0.0-4.0); LYMPH # 1.5 K/uL (1.0-4.3); LYMPH % 7.5 % (20.0-40.0); MEAN CELL VOLUME 85.9 fL (81.0-99.0); MEAN CORPUSCULAR HEMOGLOBIN 28.3 pg (27.0-31.0); MEAN PLATELET VOLUME 9.7 fL (7.2-11.7); MONO # 0.9 K/uL (0.0-0.8); MONO % 4.7 % (0.0-10.0); NEUT # 16.9 K/uL (1.8-7.0); NEUT % 87.3 % (50.0-75.0); NRBC % 0.2 % (0.0-2.0); PLATELET COUNT 270 K/uL (130-400); RBC 3.09 Mil/uL (3.80-5.20); RED CELL DISTRIBUTION WIDTH 15.4 % (11.5-14.5); WHITE BLOOD COUNT 19.4 K/uL (4.8-10.8)
[2018-08-21 08:56] LABS: HEMOGLOBIN 8.8 g/dL (11.0-16.0)
[2018-08-21] MEDS ORDERED: Epoetin Alfa 10,000 unit/ml Dialysis IV SCH (09:00)
[2018-08-21 09:01] LABS: ALB/GLOB RATIO 0.9 (1.0-2.1); ALBUMIN 2.6 g/dL (3.5-5.0); CALCIUM 8.1 mg/dl (8.6-10.4)
[2018-08-21] MEDS ORDERED: UMECLIDINIUM BROMIDE INH SCH (10:00)
[2018-08-21] MEDS: diltiaZEM 240 mg/24 Hours CD Cap PO SCH (10:01)
[2018-08-21] MEDS: Levothyroxine 150 MCG TAB PO SCH (10:02)
[2018-08-21 10:15] LABS: ANISOCYTOSIS SLIGHT; HYPOCHROMIC SLIGHT; LYMPHOCYTE 7 % (20-40); MONOCYTE 3 % (0-10); NEUTROPHIL 90 % (50-75); PLATELET ESTIMATE NORMAL (NORMAL); TOTAL CELLS COUNTED 100
--- NOTE | 2018-08-21 15:22 | CP.PCM.CON ---
History of Present Illness - History of Present Illness History of Present Illness: 83 yo female with ESRD, HTN, SVT, MM, DM, comes from rehab for low hemoglobin. Was in the hospital for blood transfusions at end of July. Denies bleeding from rectum or hemetemesis. No abdominal pain. Pt feels increased swelling in legs. Presently on HD, but with low BP, unable to get full goal of UF. Pt refuses additional treatment in am, says she is too weak. Received 2 U PRBC. Review of Systems - Constitutional Constitutional: Fatigue. absent: Fever - EENT Nose/Mouth/Throat: absent: Nasal Congestion, Nasal Discharge - Cardiovascular Cardiovascular: Dyspnea on Exertion, Pedal Edema - Respiratory Respiratory: Cough. absent: Dyspnea - Gastrointestinal Gastrointestinal: absent: Abdominal Pain, Bloating, Coffee Ground Emesis, Hematochezia, Melena - Musculoskeletal Musculoskeletal: Muscle Weakness Past Patient History - Infectious Disease Hx of Infectious Diseases: None - Past Medical History & Family History Past Medical History?: Yes - Past Social History Smoking Status: Former Smoker - CARDIAC Hx Atrial Fibrillation: Yes Hx Cardia Arrhythmia: Yes Hx Congestive Heart Failure: Yes Hx Hypercholesterolemia: Yes Hx Hypertension: Yes - PULMONARY Hx Chronic Obstructive Pulmonary Disease (COPD): Yes - NEUROLOGICAL Hx Neurological Disorder: No - HEENT Hx HEENT Problems: Yes Hx Cataracts: Yes (bilateral) - RENAL Hx Chronic Kidney Disease: Yes Hx Kidney Stones: No - ENDOCRINE/METABOLIC Hx Hypothyroidism: Yes - HEMATOLOGICAL/ONCOLOGICAL Hx Anemia: Yes - INTEGUMENTARY Hx Dermatological Problems: No - MUSCULOSKELETAL/RHEUMATOLOGICAL Hx Arthritis: Yes - GASTROINTESTINAL Hx Gastrointestinal Disorders: Yes Hx Hemorrhoids: Yes - GENITOURINARY/GYNECOLOGICAL Hx Genitourinary Disorders: No - PSYCHIATRIC Hx Substance Use: No - SURGICAL HISTORY Hx Surgeries: Yes Hx Arteriovenous Shunt: Yes (LEFT ARM AV ,permacath) Hx Vascular Access Device: Yes (perma cath elaina cath) - ANESTHESIA Hx Anesthesia: Yes Hx Anesthesia Reactions: No Hx Malignant Hyperthermia: No Meds Allergies/Adverse Reactions: Allergies Allergy/AdvReac Type Severity Reaction Status Date / Time No Known Allergies Allergy Verified 08/01/18 01:56 - Medications Medications: Current Medications Amiodarone HCl (Cordarone) 200 mg PO DAILY [facility] Last Admin: 08/21/18 10:02 Dose: 200 mg Arformoterol Tartrate (Brovana) 15 mcg INH RQ12@1000,2200 [facility] Bisacodyl (Dulcolax) [address] [facility] Last Admin: 08/21/18 12:05 Dose: Not Given Budesonide (Pulmicort Respules) [address] [facility] Calcium Acetate (Phoslo) [address] [facility] Last Admin: 08/21/18 14:17 Dose: Not Given Diltiazem HCl (Cardizem Cd) [address] [facility] Last Admin: 08/21/18 10:01 Dose: 240 mg Docusate Sodium (Colace) [address] [facility] Last Admin: 08/21/18 10:01 Dose: 100 mg Epoetin Eddie (Procrit) 10,[address] [facility] Last Admin: 08/21/18 13:48 Dose: 10,000 unit Famotidine (Pepcid) [address] [facility] Last Admin: 08/21/18 10:01 Dose: 20 mg Ferrous Sulfate (Feosol) [address] [facility] Last Admin: 08/21/18 10:01 Dose: 325 mg Glipizide (Glucotrol) [address] [facility] Last Admin: 08/21/18 08:22 Dose: 10 mg Home Med (Melatonin [Melatonin]) 3 mg PO HS PRN PRN Reason: Insomnia Home Med (Umeclidinium [place] [Incruse Ellipta]) [address] [facility] Insulin Detemir (Levemir) [address] [facility] Last Admin: 08/20/18 22:43 Dose: 12 units Levothyroxine Sodium (Synthroid) [address] [facility] Last Admin: 08/21/18 10:02 Dose: 150 mcg Magnesium Hydroxide (Milk Of Magnesia) 30 ml PO HS PRN PRN Reason: Constipation Rosuvastatin Calcium (Crestor) [address] [facility] Last Admin: 08/20/18 22:49 Dose: 5 mg Physical Exam - Constitutional Appears: No Acute Distress, Chronically Ill - Head Exam Head Exam: ATRAUMATIC, NORMAL INSPECTION - Eye Exam Eye Exam: EOMI, Normal appearance - ENT Exam ENT Exam: Mucous Membranes Moist - Respiratory Exam Respiratory Exam: Decreased Breath Sounds, Wheezes - Cardiovascular Exam Cardiovascular Exam: REGULAR RHYTHM. absent: Rubs - GI/Abdominal Exam GI & Abdominal Exam: Distended, Soft. absent: Tenderness - Extremities Exam Extremities exam: Positive for: pedal edema - Neurological Exam Neurological exam: Alert, Oriented x3 - Psychiatric Exam Psychiatric exam: Normal Affect, Normal Mood Results - Vital Signs Recent Vital Signs: Last Vital Signs Temp 97.9 F 08/21/18 12:20 Pulse 74 08/21/18 13:50 Resp 17 08/21/18 13:50 BP 105/42 L 08/21/18 14:50 Pulse Ox 97 08/21/18 12:20 - Labs Result Diagrams: 08/21/18 08:26 08/21/18 08:26 Labs: Laboratory Results - last 24 hr 08/20/18 08/20/18 08/20/18 17:55 17:55 17:55 WBC 19.0 H RBC 2.13 L Hgb 5.6 L* D Hct 18.0 L MCV 84.5 D MCH 26.4 L MCHC 31.2 L RDW 16.4 H Plt Count 219 MPV 10.2 Neut % (Auto) 86.3 H Lymph % (Auto) 8.4 L [place] % (Auto) 5.2 Eos % (Auto) 0.0 Baso % (Auto) 0.1 Neut # (Auto) 16.4 H Lymph # (Auto) 1.6 [place] # (Auto) 1.0 H Eos # (Auto) 0.0 Baso # (Auto) 0.0 Neutrophils % (Manual) 91 H Lymphocytes % (Manual) 6 L Monocytes % (Manual) 3 Platelet Estimate Normal Hypochromasia (manual) Slight Anisocytosis (manual) Sodium 136 Potassium 3.4 L Chloride 92 L Carbon Dioxide 33 H Anion Gap 14 BUN 43 H Creatinine 2.2 H Est GFR ( Amer) 26 Est GFR (Non-Af Amer) 21 POC Glucose (mg/dL) Random Glucose 220 H Calcium 8.0 L Phosphorus Magnesium Total Bilirubin 0.4 AST 26 ALT 26 Alkaline Phosphatase 197 H Total Protein 5.8 L Albumin 2.6 L Globulin 3.2 Albumin/Globulin Ratio 0.8 L Blood Type B POSITIVE Antibody Screen Negative 08/20/18 08/21/18 08/21/18 22:18 06:38 08:26 WBC 19.4 H RBC 3.09 L Hgb 8.8 L D Hct 26.6 L MCV 85.9 MCH 28.3 MCHC 33.0 RDW 15.4 H Plt Count 270 MPV 9.7 Neut % (Auto) 87.3 H Lymph % (Auto) 7.5 L [place] % (Auto) 4.7 Eos % (Auto) 0.1 Baso % (Auto) 0.4 Neut # (Auto) 16.9 H Lymph # (Auto) 1.5 [place] # (Auto) 0.9 H Eos # (Auto) 0.0 Baso # (Auto) 0.1 Neutrophils % (Manual) 90 H Lymphocytes % (Manual) 7 L Monocytes % (Manual) 3 Platelet Estimate Normal Hypochromasia (manual) Slight Anisocytosis (manual) Slight Sodium Potassium Chloride Carbon Dioxide Anion Gap BUN Creatinine Est GFR ( Amer) Est GFR (Non-Af Amer) POC Glucose (mg/dL) 309 H 239 H Random Glucose Calcium Phosphorus Magnesium Total Bilirubin AST ALT Alkaline Phosphatase Total Protein Albumin Globulin Albumin/Globulin Ratio Blood Type Antibody Screen 08/21/18 08/21/18 08:26 11:30 WBC RBC Hgb Hct MCV MCH MCHC RDW Plt Count MPV Neut % (Auto) Lymph % (Auto) [place] % (Auto) Eos % (Auto) Baso % (Auto) Neut # (Auto) Lymph # (Auto) [place] # (Auto) Eos # (Auto) Baso # (Auto) Neutrophils % (Manual) Lymphocytes % (Manual) Monocytes % (Manual) Platelet Estimate Hypochromasia (manual) Anisocytosis (manual) Sodium 136 Potassium 4.0 Chloride 96 L Carbon Dioxide 30 Anion Gap 14 BUN 51 H Creatinine 2.4 H Est GFR ( Amer) 23 Est GFR (Non-Af Amer) 19 POC Glucose (mg/dL) 264 H Random Glucose 181 H Calcium 8.1 L Phosphorus 3.6 Magnesium 2.0 Total Bilirubin 0.6 AST 16 ALT 21 Alkaline Phosphatase 159 H Total Protein 5.7 L Albumin 2.6 L Globulin 3.0 Albumin/Globulin Ratio 0.9 L Blood Type Antibody Screen Assessment & Plan - Assessment and Plan (Free Text) Assessment: esrd, HD today volume overloaded, reinforced fluid restriction, refusing extra treatment transfusion dependent anemia, Heme re-eval suggested
[2018-08-21] MEDS ORDERED: Home Med 1 UNIT (Melatonin [Melatonin] 3 MG) PO PRN (18:49)
[2018-08-21] MEDS: Arformoterol 15 mcg/2 ml Inh Sol INH SCH (19:29)
[2018-08-21] MEDS: Budesonide 0.5 mg/2 ml Inhal Susp UD INH SCH (19:29)
[2018-08-21 20:20] VITALS: RESP 20
--- NOTE | 2018-08-21 20:43 | CP.PCM.PN ---
Subjective - Date & Time of Evaluation Date of Evaluation: 08/21/18 Time of Evaluation: 08:30 - Subjective Subjective: patient examined today no nausea no vomiting no shortness of breath no diarrhea no dizziness no fever Objective - Vital Signs/Intake and Output Vital Signs (last 24 hours): Temp Pulse Resp BP Pulse Ox 98.1 F 78 20 100/39 L 96 08/21/18 20:19 08/21/18 20:19 08/21/18 20:19 08/21/18 20:19 08/21/18 20:19 Intake and Output: 08/21/18 08/22/18 18:59 06:59 Intake Total 300 Balance 300 - Medications Medications: Current Medications Amiodarone HCl (Cordarone) 200 mg PO DAILY [facility] Last Admin: 08/21/18 10:02 Dose: 200 mg Arformoterol Tartrate (Brovana) 15 mcg INH RQ12@1000,2200 [facility] Last Admin: 08/21/18 19:29 Dose: 15 mcg Bisacodyl (Dulcolax) 10 mg RC DAILY [facility] Last Admin: 08/21/18 12:05 Dose: Not Given Budesonide (Pulmicort Respules) 0.5 mg INH RQ12 [facility] Last Admin: 08/21/18 19:29 Dose: 0.5 mg Calcium Acetate (Phoslo) 667 mg PO TID [facility] Last Admin: 08/21/18 17:07 Dose: 667 mg Diltiazem HCl (Cardizem Cd) 240 mg PO DAILY [facility] Last Admin: 08/21/18 10:01 Dose: 240 mg Docusate Sodium (Colace) 100 mg PO BID [facility] Last Admin: 08/21/18 10:01 Dose: 100 mg Epoetin Eddie (Procrit) 10,000 unit IV MWF [facility] Last Admin: 08/21/18 13:48 Dose: 10,000 unit Famotidine (Pepcid) 20 mg PO DAILY [facility] Last Admin: 08/21/18 10:01 Dose: 20 mg Ferrous Sulfate (Feosol) 325 mg PO DAILY [facility] Last Admin: 08/21/18 10:01 Dose: 325 mg Glipizide (Glucotrol) 10 mg PO ACBD [facility] Last Admin: 08/21/18 17:07 Dose: 10 mg Home Med (Melatonin [Melatonin]) 3 mg PO HS PRN PRN Reason: Insomnia Home Med (Umeclidinium [place] [Incruse Ellipta]) 1 puff INH DAILY [facility] Insulin Detemir (Levemir) 12 unit SC [facility] Last Admin: 08/20/18 22:43 Dose: 12 units Levothyroxine Sodium (Synthroid) 150 mcg PO DAILY [facility] Last Admin: 08/21/18 10:02 Dose: 150 mcg Magnesium Hydroxide (Milk Of Magnesia) 30 ml PO HS PRN PRN Reason: Constipation Rosuvastatin Calcium (Crestor) 5 mg PO [facility] Last Admin: 08/20/18 22:49 Dose: 5 mg - Labs Labs: 08/21/18 08:26 08/21/18 08:26 - Constitutional Appears: Well - Head Exam Head Exam: ATRAUMATIC, NORMAL INSPECTION, NORMOCEPHALIC - Eye Exam Eye Exam: EOMI, Normal appearance, PERRL Pupil Exam: NORMAL ACCOMODATION, PERRL - ENT Exam ENT Exam: Mucous Membranes Moist, Normal Exam - Neck Exam Neck Exam: Full ROM, Normal Inspection. absent: Lymphadenopathy - Respiratory Exam Respiratory Exam: Decreased Breath Sounds - Cardiovascular Exam Cardiovascular Exam: REGULAR RHYTHM, +S1, +S2 - GI/Abdominal Exam GI & Abdominal Exam: Soft, Diminished Bowel Sounds - Rectal Exam Rectal Exam: Deferred - Neurological Exam Neurological Exam: Oriented x3 Assessment and Plan - Assessment and Plan (Free Text) Plan: plan discussed with patient and family moderate complexity of care medications reviewed labs reviewed vitals reviewed golden winn cd colace cordarone crestor dulcolax feosol glucotrol levemir milk of mag pepcid phoslo procrit pulmicort respules synthroid
--- NOTE | 2018-08-21 22:40 | CP.PCM.CON ---
History of Present Illness - History of Present Illness History of Present Illness: 83 year old female with a history of COPD, CHF, DM, afib, hypothyroid, multiple myeloma admitted for severe anemia and leukocytosis ID eval requested for this - r/o infectious etiology Past medical history: COPD, CHF, DM, afib, hypothyroid, multiple myeloma Past surgical history: Denies Family history: DM Social history: Denies tobacco, alcohol, and illicit drug use. Allergies: NKA Review of Systems - Review of Systems All systems: reviewed and no additional remarkable complaints except - Constitutional Constitutional: As Per HPI - EENT Eyes: absent: As Per HPI, Blind Spots, Blurred Vision, Change in Vision, Decreased Night Vision, Diplopia, Discharge, Dry Eye, Exophthalmos, Floaters, Irritation, Itchy Eyes, Loss of Peripheral Vision, Pain, Photophobia, Requires Corrective Lenses, Sees Flashes, Spots in Vision, Tunnel Vision, Other Visual Disturbances, Loss of Vision, Other Ears: absent: As Per HPI, Decreased Hearing, Ear Discharge, Ear Pain, Tinnitus, Abnormal Hearing, Disequilibrium, Dizziness, Other Nose/Mouth/Throat: absent: As Per HPI, Epistaxis, Nasal Congestion, Nasal Discharge, Nasal Obstruction, Nasal Trauma, Nose Pain, Post Nasal Drip, Sinus Pain, Sinus Pressure, Bleeding Gums, Change in Voice, Dental Pain, Dry Mouth, Dysphagia, Halitosis, Hoarsness, Lip Swelling, Mouth Lesions, Mouth Pain, Odyn ophagia, Sore Throat, Throat Swelling, Tongue Swelling, Facial Pain, Neck Pain, Neck Mass, Other - Breasts Breasts: absent: As Per HPI, Change in Shape, Mass, Pain, Nipple Discharge, Nipple Inversion, Skin Changes, Swelling, Other - Cardiovascular Cardiovascular: absent: As Per HPI, Acrocyanosis, Chest Pain, Chest Pain at Rest, Chest Pain with Activity, Claudication, Diaphoresis, Dyspnea, Dyspnea on Exertion, Edema, Irregular Heart Rhythm, Pain Radiating to Arm/Neck/Jaw, Leg Edema, Leg Ulcers, Lightheadedness, Orthopnea, Palpitations, Paroxysmal Nocturnal Dyspnea, Pedal Edema, Radiating Pain, Rapid Heart Rate, Slow Heart Rate, Syncope, Other - Respiratory Respiratory: absent: As Per HPI, Cough, Dyspnea, Hemoptysis, Dyspnea on Exertion, Wheezing, Snoring, Stridor, Pain on Inspiration, Chest Congestion, Excessive Mucous Production, Change in Mucous Color, Pain with Coughing, Other - Gastrointestinal Gastrointestinal: absent: As Per HPI, Abdominal Pain, Belching, Bloating, Change in Bowel Habits, Change in Stool Character, Coffee Ground Emesis, Constipation, Cramping, Diarrhea, Dyspepsia, Dysphagia, Early Satiety, Excessive Flatus, Fecal Incontinence, Heartburn, Hematemesis, Hematochezia, Loose Stools, Melena, Nausea, Odynophagia, Temesmus, Vomiting, Other - Genitourinary Genitourinary: As Per HPI - Reproductive: Female Reproductive:Female: absent: As Per HPI, Amenorrhea, Amenorrhea/ Control, Currently Menstual, Cycle <21 Days, Cycle >35 Days, Cycle Variable, Menses 1-7 Days, Menses >/= 8 Days, Menses Variable, Cycle > 4 Weeks Between, No Menses for 6 Months, Heavy Menses, Light Menses, Normal Menses, Spotting Between Cycles, S/P Hysterectomy, Menopausal, Post Menopausal, Premenarche, Abnormal Vaginal Bleeding, Dysmenorrhea, Dyspareunia, Genital Lesions, Genital Pruritis, Pelvic Pain, Prolapse Symptoms, Sexual Dysfunction, Vaginal Discharge, Vaginal Dryness, Vaginal Odor, Vaginal Pruritis, Other - Menstruation Menstruation: absent: As Per HPI, Amenorrhea, Amenorrhea/ Control, Currently Menstual, Cycle <21 Days, Cycle >35 Days, Cycle Variable, Menses 1-7 Days, Menses >/= 8 Days, Menses Variable, Cycle > 4 Weeks Between, No Menses for 6 Months, Heavy Menses, Light Menses, Normal Menses, Spotting Between Cycles, S/P Hysterectomy, Menopausal, Post Menopausal, Premenarche, Abnormal Vaginal Bleeding, Dysmenorrhea, Other - Musculoskeletal Musculoskeletal: absent: As Per HPI, Abnormal Gait, Arthralgias, Atrophy, Back Pain, Deformity, Joint Swelling, Limited Range of Motion, Loss of Height, Muscle Cramps, Muscle Weakness, Myalgias, Neck Pain, Numbness, Radiating Pain into Limb, Stiffness, Tingling, Other - Integumentary Integumentary: absent: As Per HPI, Acne, Alopecia, Bleeding Lesions, Change in Hair, Change in Nails, Change in Pigmentation, Changing Lesions, Dry Skin, Erythema, Furuncle, Hirsutism, Lesions, New Lesions, Non-Healing Lesions, Photosensitivity, Pruritus, Rash, Skin Pain, Skin Ulcer, Sores, Striae, Swelling, Unusual Bruising, Wounds, Jaundice, Other - Neurological Neurological: absent: As Per HPI, Abnormal Gait, Abnormal Hearing, Abnormal M ovements, Abnormal Speech, Behavioral Changes, Burning Sensations, Confusion, Convulsions, Disequilibrium, Dizziness, Numbness, Focal Weakness, Frequent Falls, Headaches, Lack of Coordination, Loss of Vision, Memory Loss, Paresthesias, Radicular Pain, Restless Legs, Sensory Deficit, Syncope, Tingling, Tremor, Vertigo, Weakness, Other Visual Disturbances, Other - Psychiatric Psychiatric: absent: As Per HPI, Abnormal Sleep Pattern, Anhedonia, Anxiety, Auditory Hallucinations, Behavioral Changes, Change in Appetite, Change in Libido, Confusion, Depression, Difficulty Concentrating, Hallucinations, Homicidal Ideation, Hopelessness, Irritability, Memory Loss, Mood Swings, Panic Attacks, Paranoia, Suicidal Ideation, Visual Hallucinations, Tactile Hallucinat ions, Other - Endocrine Endocrine: absent: As Per HPI, Change in Body Appearance, Change in Libido, Cold Intolorance, Deepening of Voice, Excessive Sweating, Fatigue, Flushing, Heat Intolorance, Increase in Ring/Shoe/Hat Size, Palpitations, Polydipsia, Polyphag ia, Polyuria, Other Review of Systems - Review of Systems All systems: reviewed and no additional remarkable complaints except - Constitutional Constitutional: As Per HPI - EENT Eyes: absent: As Per HPI, Blind Spots, Blurred Vision, Change in Vision, Decr eased Night Vision, Diplopia, Discharge, Dry Eye, Exophthalmos, Floaters, Irritation, Itchy Eyes, Loss of Peripheral Vision, Pain, Photophobia, Requires Corrective Lenses, Sees Flashes, Spots in Vision, Tunnel Vision, Other Visual Disturbances, Loss of Vision, Other Ears: absent: As Per HPI, Decreased Hearing, Ear Discharge, Ear Pain, Tinnitus, Abnormal Hearing, Disequilibrium, Dizziness, Other Nose/Mouth/Throat: absent: As Per HPI, Epistaxis, Nasal Congestion, Nasal Discharge, Nasal Obstruction, Nasal Trauma, Nose Pain, Post Nasal Drip, Sinus Pain, Sinus Pressure, Bleeding Gums, Change in Voice, Dental Pain, Dry Mouth, Dysphagia, Halitosis, Hoarsness, Lip Swelling, Mouth Lesions, Mouth Pain, Odynophagia, Sore Throat, Throat Swelling, Tongue Swelling, Facial Pain, Neck Pain, Neck Mass, Other - Breasts Breasts: absent: As Per HPI, Change in Shape, Mass, Pain, Nipple Discharge, Nipple Inversion, Skin Changes, Swelling, Other - Cardiovascular Cardiovascular: As Per HPI - Respiratory Respiratory: As Per HPI, Cough, Dyspnea. absent: Hemoptysis - Gastrointestinal Gastrointestinal: absent: As Per HPI, Abdominal Pain, Belching, Bloating, Change in Bowel Habits, Change in Stool Character, Coffee Ground Emesis, Constipation, Cramping, Diarrhea, Dyspepsia, Dysphagia, Early Satiety, Excessive Flatus, Fecal Incontinence, Heartburn, Hematemesis, Hematochezia, Loose Stools, Melena, Junior sea, Odynophagia, Temesmus, Vomiting, Other - Genitourinary Genitourinary: absent: As Per HPI, Change in Urinary Stream, Difficulty Urinating, Dysuria, Flank Pain, Hematuria, Pyuria, Nocturia, Urinary Incontinence, Urinary Frequency, Urinary Hesitance, Urinary Urgency, Voiding Freq/Small Amts, Freq UTI, Hx Renal/Bladder Calculi, Hx /Renal Surgery, Bladder Distension, Other - Reproductive: Female Reproductive:Female: absent: As Per HPI, Amenorrhea, Amenorrhea/ Control, Currently Menstual, Cycle <21 Days, Cycle >35 Days, Cycle Variable, Menses 1-7 Days, Menses >/= 8 Days, Menses Variable, Cycle > 4 Weeks Between, No Menses for 6 Months, Heavy Menses, Light Menses, Normal Menses, Spotting Between Cycles, S/P Hysterectomy, Menopausal, Post Menopausal, Premenarche, Abnormal Vaginal Bleeding, Dysmenorrhea, Dyspareunia, Genital Lesions, Genital Pruritis, Pelvic Pain, Prolapse Symptoms, Sexual Dysfunction, Vaginal Discharge, Vaginal Dryness, Vaginal Odor, Vaginal Pruritis, Other - Menstruation Menstruation: absent: As Per HPI, Amenorrhea, Amenorrhea/ Control, Cur rently Menstual, Cycle <21 Days, Cycle >35 Days, Cycle Variable, Menses 1-7 Days, Menses >/= 8 Days, Menses Variable, Cycle > 4 Weeks Between, No Menses for 6 Months, Heavy Menses, Light Menses, Normal Menses, Spotting Between Cycles, S/P Hysterectomy, Menopausal, Post Menopausal, Premenarche, Abnormal Vaginal Bleeding, Dysmenorrhea, Other - Musculoskeletal Musculoskeletal: absent: As Per HPI, Abnormal Gait, Arthralgias, Atrophy, Back Pain, Deformity, Joint Swelling, Limited Range of Motion, Loss of Height, Muscle Cramps, Muscle Weakness, Myalgias, Neck Pain, Numbness, Radiating Pain into Limb, Stiffness, Tingling, Other - Integumentary Integumentary: absent: As Per HPI, Acne, Alopecia, Bleeding Lesions, Change in Hair, Change in Nails, Change in Pigmentation, Changing Lesions, Dry Skin, Erythema, Furuncle, Hirsutism, Lesions, New Lesions, Non-Healing Lesions, Photosensitivity, Pruritus, Rash, Skin Pain, Skin Ulcer, Sores, Striae, Swelling, Unusual Bruising, Wounds, Jaundice, Other - Neurological Neurological: absent: As Per HPI, Abnormal Gait, Abnormal Hearing, Abnormal Movements, Abnormal Speech, Behavioral Changes, Burning Sensations, Confusion, Convulsions, Disequilibrium, Dizziness, Numbness, Focal Weakness, Frequent Falls, Headaches, Lack of Coordination, Loss of Vision, Memory Loss, Paresthesias, Radicular Pain, Restless Legs, Sensory Deficit, Syncope, Tingling, Tremor, Vertigo, Weakness, Other Visual Disturbances, Other - Psychiatric Psychiatric: absent: As Per HPI, Abnormal Sleep Pattern, Anhedonia, Anxiety, A uditory Hallucinations, Behavioral Changes, Change in Appetite, Change in Libido, Confusion, Depression, Difficulty Concentrating, Hallucinations, Homicidal Ideation, Hopelessness, Irritability, Memory Loss, Mood Swings, Panic Attacks, Paranoia, Suicidal Ideation, Visual Hallucinations, Tactile Garcia ucinations, Other - Endocrine Endocrine: absent: As Per HPI, Change in Body Appearance, Change in Libido, Cold Intolorance, Deepening of Voice, Excessive Sweating, Fatigue, Flushing, Heat Intolorance, Increase in Ring/Shoe/Hat Size, Palpitations, Polydipsia, Po lyphagia, Polyuria, Other - Hematologic/Lymphatic Hematologic: absent: As Per HPI, Easy Bleeding, Easy Bruising, Lymphadenopathy, Other Past Patient History - Infectious Disease Hx of Infectious Diseases: None - Past Medical History & Family History Past Medical History?: Yes - Past Social History Smoking Status: Former Smoker - CARDIAC Hx Atrial Fibrillation: Yes Hx Cardia Arrhythmia: Yes Hx Congestive Heart Failure: Yes Hx Hypercholesterolemia: Yes Hx Hypertension: Yes - PULMONARY Hx Chronic Obstructive Pulmonary Disease (COPD): Yes - NEUROLOGICAL Hx Neurological Disorder: No - HEENT Hx HEENT Problems: Yes Hx Cataracts: Yes (bilateral) - RENAL Hx Chronic Kidney Disease: Yes Hx Kidney Stones: No - ENDOCRINE/METABOLIC Hx Hypothyroidism: Yes - HEMATOLOGICAL/ONCOLOGICAL Hx Anemia: Yes - INTEGUMENTARY Hx Dermatological Problems: No - MUSCULOSKELETAL/RHEUMATOLOGICAL Hx Arthritis: Yes - GASTROINTESTINAL Hx Gastrointestinal Disorders: Yes Hx Hemorrhoids: Yes - GENITOURINARY/GYNECOLOGICAL Hx Genitourinary Disorders: No - PSYCHIATRIC Hx Substance Use: No - SURGICAL HISTORY Hx Surgeries: Yes Hx Arteriovenous Shunt: Yes (LEFT ARM AV ,permacath) Hx Vascular Access Device: Yes (perma cath elaina cath) - ANESTHESIA Hx Anesthesia: Yes Hx Anesthesia Reactions: No Hx Malignant Hyperthermia: No Meds Allergies/Adverse Reactions: Allergies Allergy/AdvReac Type Severity Reaction Status Date / Time No Known Allergies Allergy Verified 08/01/18 01:56 - Medications Medications: Current Medications Amiodarone HCl (Cordarone) 200 mg PO DAILY [facility] Bisacodyl (Dulcolax) 10 mg RC DAILY [facility] Calcium Acetate (Phoslo) 667 mg PO TID [facility] Diltiazem HCl (Cardizem Cd) 240 mg PO DAILY [facility] Docusate Sodium (Colace) 100 mg PO BID [facility] Epoetin Eddie (Procrit) 10,000 unit IV MWF [facility] Famotidine (Pepcid) 20 mg PO DAILY [facility] Ferrous Sulfate (Feosol) 325 mg PO DAILY [facility] Fluticasone/Vilanterol (Breo Ellipta 200-25 Mcg Inh) 1 puff INH DAILY [facility] Glipizide (Glucotrol) 10 mg PO ACBD [facility] Home Med (Melatonin [Melatonin]) 3 mg PO HS PRN PRN Reason: Insomnia Home Med (Umeclidinium [place] [Incruse Ellipta]) 1 puff INH DAILY [facility] Insulin Detemir (Levemir) 12 unit SC HS [facility] Last Admin: 08/20/18 22:43 Dose: 12 units Levothyroxine Sodium (Synthroid) 150 mcg PO DAILY [facility] Magnesium Hydroxide (Milk Of Magnesia) 30 ml PO HS PRN PRN Reason: Constipation Rosuvastatin Calcium (Crestor) 5 mg PO HS [facility] Last Admin: 08/20/18 22:49 Dose: 5 mg Results - Vital Signs Recent Vital Signs: Last Vital Signs Temp 98.0 F 08/20/18 22:04 Pulse 78 08/20/18 22:04 Resp 20 08/20/18 22:04 BP 93/49 L 08/20/18 22:04 Pulse Ox 97 08/20/18 22:56 - Labs Result Diagrams: 08/20/18 17:55 08/20/18 17:55 Labs: Laboratory Results - last 24 hr 08/20/18 08/20/18 08/20/18 17:55 17:55 17:55 WBC 19.0 H RBC 2.13 L Hgb 5.6 L* D Hct 18.0 L MCV 84.5 D MCH 26.4 L MCHC 31.2 L RDW 16.4 H Plt Count 219 MPV 10.2 Neut % (Auto) 86.3 H Lymph % (Auto) 8.4 L [place] % (Auto) 5.2 Eos % (Auto) 0.0 Baso % (Auto) 0.1 Neut # (Auto) 16.4 H Lymph # (Auto) 1.6 [place] # (Auto) 1.0 H Eos # (Auto) 0.0 Baso # (Auto) 0.0 Neutrophils % (Manual) 91 H Lymphocytes % (Manual) 6 L Monocytes % (Manual) 3 Platelet Estimate Normal Hypochromasia (manual) Slight Sodium 136 Potassium 3.4 L Chloride 92 L Carbon Dioxide 33 H Anion Gap 14 BUN 43 H Creatinine 2.2 H Est GFR ( Amer) 26 Est GFR (Non-Af Amer) 21 POC Glucose (mg/dL) Random Glucose 220 H Calcium 8.0 L Total Bilirubin 0.4 AST 26 ALT 26 Alkaline Phosphatase 197 H Total Protein 5.8 L Albumin 2.6 L Globulin 3.2 Albumin/Globulin Ratio 0.8 L Blood Type B POSITIVE Antibody Screen Negative 08/20/18 22:18 WBC RBC Hgb Hct MCV MCH MCHC RDW Plt Count MPV Neut % (Auto) Lymph % (Auto) [place] % (Auto) Eos % (Auto) Baso % (Auto) Neut # (Auto) Lymph # (Auto) [place] # (Auto) Eos # (Auto) Baso # (Auto) Neutrophils % (Manual) Lymphocytes % (Manual) Monocytes % (Manual) Platelet Estimate Hypochromasia (manual) Sodium Potassium Chloride Carbon Dioxide Anion Gap BUN Creatinine Est GFR ( Amer) Est GFR (Non-Af Amer) POC Glucose (mg/dL) 309 H Random Glucose Calcium Total Bilirubin AST ALT Alkaline Phosphatase Total Protein Albumin Globulin Albumin/Globulin Ratio Blood Type Antibody Screen
[2018-08-21] MEDS: Insulin Detemir 100 units/ml Vial (Levemir) SC SCH (22:42)
--- NOTE | 2018-08-21 22:46 | CP.PCM.CON ---
History of Present Illness - History of Present Illness History of Present Illness: 83 year old female with a history of COPD, CHF, DM, afib, hypothyroid, multiple myeloma admitted for severe anemia and leukocytosis ID eval requested for this - r/o infectious etiology Cuktures sent IV antibiotics ordered Past medical history: COPD, CHF, DM, afib, hypothyroid, multiple myeloma Past surgical history: Denies Family history: DM Social history: Denies tobacco, alcohol, and illicit drug use. Allergies: NKA Review of Systems - Review of Systems All systems: reviewed and no additional remarkable complaints except - Constitutional Constitutional: As Per HPI - EENT Eyes: absent: As Per HPI, Blind Spots, Blurred Vision, Change in Vision, Decreased Night Vision, Diplopia, Discharge, Dry Eye, Exophthalmos, Floaters, Irritation, Itchy Eyes, Loss of Peripheral Vision, Pain, Photophobia, Requires Corrective Lenses, Sees Flashes, Spots in Vision, Tunnel Vision, Other Visual Disturbances, Loss of Vision, Other Ears: absent: As Per HPI, Decreased Hearing, Ear Discharge, Ear Pain, Tinnitus, Abnormal Hearing, Disequilibrium, Dizziness, Other Nose/Mouth/Throat: absent: As Per HPI, Epistaxis, Nasal Congestion, Nasal Discharge, Nasal Obstruction, Nasal Trauma, Nose Pain, Post Nasal Drip, Sinus Pain, Sinus Pressure, Bleeding Gums, Change in Voice, Dental Pain, Dry Mouth, Dysphagia, Halitosis, Hoarsness, Lip Swelling, Mouth Lesions, Mouth Pain, Odynophagia, Sore Throat, Throat Swelling, Tongue Swelling, Facial Pain, Neck Pain, Neck Mass, Other - Breasts Breasts: absent: As Per HPI, Change in Shape, Mass, Pain, Nipple Discharge, Nipple Inversion, Skin Changes, Swelling, Other - Cardiovascular Cardiovascular: absent: As Per HPI, Acrocyanosis, Chest Pain, Chest Pain at Rest, Chest Pain with Activity, Claudication, Diaphoresis, Dyspnea, Dyspnea on Exertion, Edema, Irregular Heart Rhythm, Pain Radiating to Arm/Neck/Jaw, Leg Edema, Leg Ulcers, Lightheadedness, Orthopnea, Palpitations, Paroxysmal Nocturnal Dyspnea, Pedal Edema, Radiating Pain, Rapid Heart Rate, Slow Heart Rate, Syncope, Other - Respiratory Respiratory: absent: As Per HPI, Cough, Dyspnea, Hemoptysis, Dyspnea on Exer tion, Wheezing, Snoring, Stridor, Pain on Inspiration, Chest Congestion, Excessive Mucous Production, Change in Mucous Color, Pain with Coughing, Other - Gastrointestinal Gastrointestinal: absent: As Per HPI, Abdominal Pain, Belching, Bloating, Change in Bowel Habits, Change in Stool Character, Coffee Ground Emesis, Constipation, Cramping, Diarrhea, Dyspepsia, Dysphagia, Early Satiety, Excessive Flatus, Fecal Incontinence, Heartburn, Hematemesis, Hematochezia, Loose Stools, Melena, Nausea, Odynophagia, Temesmus, Vomiting, Other - Genitourinary Genitourinary: As Per HPI - Reproductive: Female Reproductive:Female: absent: As Per HPI, Amenorrhea, Amenorrhea/ Control, Currently Menstual, Cycle <21 Days, Cycle >35 Days, Cycle Variable, Menses 1-7 Days, Menses >/= 8 Days, Menses Variable, Cycle > 4 Weeks Between, No Menses for 6 Months, Heavy Menses, Light Menses, Normal Menses, Spotting Between Cycles, S/P Hysterectomy, Menopausal, Post Menopausal, Premenarche, Abnormal Vaginal Bleeding, Dysmenorrhea, Dyspareunia, Genital Lesions, Genital Pruritis, Pelvic Pain, Prolapse Symptoms, Sexual Dysfunction, Vaginal Discharge, Vaginal Dryness, Vaginal Odor, Vaginal Pruritis, Other - Menstruation Menstruation: absent: As Per HPI, Amenorrhea, Amenorrhea/ Control, Currently Menstual, Cycle <21 Days, Cycle >35 Days, Cycle Variable, Menses 1-7 Days, Menses >/= 8 Days, Menses Variable, Cycle > 4 Weeks Between, No Menses for 6 Months, Heavy Menses, Light Menses, Normal Menses, Spotting Between Cycles, S/P Hysterectomy, Menopausal, Post Menopausal, Premenarche, Abnormal Vaginal Bleeding, Dysmenorrhea, Other - Musculoskeletal Musculoskeletal: absent: As Per HPI, Abnormal Gait, Arthralgias, Atrophy, Back Pain, Deformity, Joint Swelling, Limited Range of Motion, Loss of Height, Muscle Cramps, Muscle Weakness, Myalgias, Neck Pain, Numbness, Radiating Pain into Limb, Stiffness, Tingling, Other - Integumentary Integumentary: absent: As Per HPI, Acne, Alopecia, Bleeding Lesions, Change in Hair, Change in Nails, Change in Pigmentation, Changing Lesions, Dry Skin, Erythema, Furuncle, Hirsutism, Lesions, New Lesions, Non-Healing Lesions, Photosensitivity, Pruritus, Rash, Skin Pain, Skin Ulcer, Sores, Striae, Swelling, Unusual Bruising, Wounds, Jaundice, Other - Neurological Neurological: absent: As Per HPI, Abnormal Gait, Abnormal Hearing, Abnormal Movements, Abnormal Speech, Behavioral Changes, Burning Sensations, Confusion, Convulsions, Disequilibrium, Dizziness, Numbness, Focal Weakness, Frequent Fall s, Headaches, Lack of Coordination, Loss of Vision, Memory Loss, Paresthesias, Radicular Pain, Restless Legs, Sensory Deficit, Syncope, Tingling, Tremor, Vertigo, Weakness, Other Visual Disturbances, Other - Psychiatric Psychiatric: absent: As Per HPI, Abnormal Sleep Pattern, Anhedonia, Anxiety, Auditory Hallucinations, Behavioral Changes, Change in Appetite, Change in Libido, Confusion, Depression, Difficulty Concentrating, Hallucinations, Homicidal Ideation, Hopelessness, Irritability, Memory Loss, Mood Swings, Panic Attacks, Paranoia, Suicidal Ideation, Visual Hallucinations, Tactile Hallucinations, Other - Endocrine Endocrine: absent: As Per HPI, Change in Body Appearance, Change in Libido, Cold Intolorance, Deepening of Voice, Excessive Sweating, Fatigue, Flushing, Heat Intolorance, Increase in Ring/Shoe/Hat Size, Palpitations, Polydipsia, Polyphagia, Polyuria, Other Review of Systems - Review of Systems All systems: reviewed and no additional remarkable complaints except - Constitutional Constitutional: As Per HPI - EENT Eyes: absent: As Per HPI, Blind Spots, Blurred Vision, Change in Vision, Decreased Night Vision, Diplopia, Discharge, Dry Eye, Exophthalmos, Floaters, Irritation, Itchy Eyes, Loss of Peripheral Vision, Pain, Photophobia, Requires Corrective Lenses, Sees Flashes, Spots in Vision, Tunnel Vision, Other Visual Disturbances, Loss of Vision, Other Ears: absent: As Per HPI, Decreased Hearing, Ear Discharge, Ear Pain, Tinnitus, Abnormal Hearing, Disequilibrium, Dizziness, Other Nose/Mouth/Throat: absent: As Per HPI, Epistaxis, Nasal Congestion, Nasal Discharge, Nasal Obstruction, Nasal Trauma, Nose Pain, Post Nasal Drip, Sinus Pain, Sinus Pressure, Bleeding Gums, Change in Voice, Dental Pain, Dry Mouth, Dysphagia, Halitosis, Hoarsness, Lip Swelling, Mouth Lesions, Mouth Pain, Odyno phagia, Sore Throat, Throat Swelling, Tongue Swelling, Facial Pain, Neck Pain, Neck Mass, Other - Breasts Breasts: absent: As Per HPI, Change in Shape, Mass, Pain, Nipple Discharge, Nipple Inversion, Skin Changes, Swelling, Other - Cardiovascular Cardiovascular: As Per HPI - Respiratory Respiratory: As Per HPI, Cough, Dyspnea. absent: Hemoptysis - Gastrointestinal Gastrointestinal: absent: As Per HPI, Abdominal Pain, Belching, Bloating, Change in Bowel Habits, Change in Stool Character, Coffee Ground Emesis, Constipation, Cramping, Diarrhea, Dyspepsia, Dysphagia, Early Satiety, Excessive Flatus, Fecal Incontinence, Heartburn, Hematemesis, Hematochezia, Loose Stools, Melena, Nausea, Odynophagia, Temesmus, Vomiting, Other - Genitourinary Genitourinary: absent: As Per HPI, Change in Urinary Stream, Difficulty Urinating, Dysuria, Flank Pain, Hematuria, Pyuria, Nocturia, Urinary Incontinence, Urinary Frequency, Urinary Hesitance, Urinary Urgency, Voiding Freq/Small Amts, Freq UTI, Hx Renal/Bladder Calculi, Hx /Renal Surgery, Bladder Distension, Other - Reproductive: Female Reproductive:Female: absent: As Per HPI, Amenorrhea, Amenorrhea/ Control, Currently Menstual, Cycle <21 Days, Cycle >35 Days, Cycle Variable, Menses 1-7 Days, Menses >/= 8 Days, Menses Variable, Cycle > 4 Weeks Between, No Menses for 6 Months, Heavy Menses, Light Menses, Normal Menses, Spotting Between Cycles, S/P Hysterectomy, Menopausal, Post Menopausal, Premenarche, Abnormal Vaginal Bleeding, Dysmenorrhea, Dyspareunia, Genital Lesions, Genital Pruritis, Pelvic Pain, Prolapse Symptoms, Sexual Dysfunction, Vaginal Discharge, Vaginal Dryness, Vaginal Odor, Vaginal Pruritis, Other - Menstruation Menstruation: absent: As Per HPI, Amenorrhea, Amenorrhea/ Control, Currently Menstual, Cycle <21 Days, Cycle >35 Days, Cycle Variable, Menses 1-7 Days, Menses >/= 8 Days, Menses Variable, Cycle > 4 Weeks Between, No Menses for 6 Months, Heavy Menses, Light Menses, Normal Menses, Spotting Between Cycles, S/P Hysterectomy, Menopausal, Post Menopausal, Premenarche, Abnormal Vaginal Bleeding, Dysmenorrhea, Other - Musculoskeletal Musculoskeletal: absent: As Per HPI, Abnormal Gait, Arthralgias, Atrophy, Back Pain, Deformity, Joint Swelling, Limited Range of Motion, Loss of Height, Muscle Cramps, Muscle Weakness, Myalgias, Neck Pain, Numbness, Radiating Pain into Limb, Stiffness, Tingling, Other - Integumentary Integumentary: absent: As Per HPI, Acne, Alopecia, Bleeding Lesions, Change in Hair, Change in Nails, Change in Pigmentation, Changing Lesions, Dry Skin, Erythema, Furuncle, Hirsutism, Lesions, New Lesions, Non-Healing Lesions, Photos ensitivity, Pruritus, Rash, Skin Pain, Skin Ulcer, Sores, Striae, Swelling, Unusual Bruising, Wounds, Jaundice, Other - Neurological Neurological: absent: As Per HPI, Abnormal Gait, Abnormal Hearing, Abnormal Movements, Abnormal Speech, Behavioral Changes, Burning Sensations, Confusion, Convulsions, Disequilibrium, Dizziness, Numbness, Focal Weakness, Frequent Falls, Headaches, Lack of Coordination, Loss of Vision, Memory Loss, Paresthesias, Radicular Pain, Restless Legs, Sensory Deficit, Syncope, Tingling, Tremor, Vertigo, Weakness, Other Visual Disturbances, Other - Psychiatric Psychiatric: absent: As Per HPI, Abnormal Sleep Pattern, Anhedonia, Anxiety, Auditory Hallucinations, Behavioral Changes, Change in Appetite, Change in Libido, Confusion, Depression, Difficulty Concentrating, Hallucinations, Homicidal Ideation, Hopelessness, Irritability, Memory Loss, Mood Swings, Panic Attacks, Paranoia, Suicidal Ideation, Visual Hallucinations, Tactile Hallucinations, Other - Endocrine Endocrine: absent: As Per HPI, Change in Body Appearance, Change in Libido, Cold Intolorance, Deepening of Voice, Excessive Sweating, Fatigue, Flushing, Heat Intolorance, Increase in Ring/Shoe/Hat Size, Palpitations, Polydipsia, Polyphagia, Polyuria, Other - Hematologic/Lymphatic Hematologic: absent: As Per HPI, Easy Bleeding, Easy Bruising, Lymphadenopathy, Other Past Patient History - Infectious Disease Hx of Infectious Diseases: None - Past Medical History & Family History Past Medical History?: Yes - Past Social History Smoking Status: Former Smoker - CARDIAC Hx Atrial Fibrillation: Yes Hx Cardia Arrhythmia: Yes Hx Congestive Heart Failure: Yes Hx Hypercholesterolemia: Yes Hx Hypertension: Yes - PULMONARY Hx Chronic Obstructive Pulmonary Disease (COPD): Yes - NEUROLOGICAL Hx Neurological Disorder: No - HEENT Hx HEENT Problems: Yes Hx Cataracts: Yes (bilateral) - RENAL Hx Chronic Kidney Disease: Yes Hx Kidney Stones: No - ENDOCRINE/METABOLIC Hx Hypothyroidism: Yes - HEMATOLOGICAL/ONCOLOGICAL Hx Anemia: Yes - INTEGUMENTARY Hx Dermatological Problems: No - MUSCULOSKELETAL/RHEUMATOLOGICAL Hx Arthritis: Yes - GASTROINTESTINAL Hx Gastrointestinal Disorders: Yes Hx Hemorrhoids: Yes - GENITOURINARY/GYNECOLOGICAL Hx Genitourinary Disorders: No - PSYCHIATRIC Hx Substance Use: No - SURGICAL HISTORY Hx Surgeries: Yes Hx Arteriovenous Shunt: Yes (LEFT ARM AV ,permacath) Hx Vascular Access Device: Yes (perma cath elaina cath) - ANESTHESIA Hx Anesthesia: Yes Hx Anesthesia Reactions: No Hx Malignant Hyperthermia: No Meds Allergies/Adverse Reactions: Allergies Allergy/AdvReac Type Severity Reaction Status Date / Time No Known Allergies Allergy Verified 08/01/18 01:56 - Medications Medications: Current Medications Amiodarone HCl (Cordarone) 200 mg PO DAILY [facility] Last Admin: 08/21/18 10:02 Dose: 200 mg Arformoterol Tartrate (Brovana) 15 mcg INH RQ12@1000,2200 [facility] Last Admin: 08/21/18 19:29 Dose: 15 mcg Bisacodyl (Dulcolax) 10 mg RC DAILY [facility] Last Admin: 08/21/18 12:05 Dose: Not Given Budesonide (Pulmicort Respules) 0.5 mg INH RQ12 [facility] Last Admin: 08/21/18 19:29 Dose: 0.5 mg Calcium Acetate (Phoslo) 667 mg PO TID [facility] Last Admin: 08/21/18 17:07 Dose: 667 mg Diltiazem HCl (Cardizem Cd) 240 mg PO DAILY [facility] Last Admin: 08/21/18 10:01 Dose: 240 mg Docusate Sodium (Colace) 100 mg PO BID [facility] Last Admin: 08/21/18 20:45 Dose: Not Given Epoetin Eddie (Procrit) 10,000 unit IV MWF [facility] Last Admin: 08/21/18 13:48 Dose: 10,000 unit Famotidine (Pepcid) 20 mg PO DAILY [facility] Last Admin: 08/21/18 10:01 Dose: 20 mg Ferrous Sulfate (Feosol) 325 mg PO DAILY [facility] Last Admin: 08/21/18 10:01 Dose: 325 mg Glipizide (Glucotrol) 10 mg PO ACBD [facility] Last Admin: 08/21/18 17:07 Dose: 10 mg Insulin Detemir (Levemir) 12 unit SC HS [facility] Last Admin: 08/20/18 22:43 Dose: 12 units Ipratropium [place] (Atrovent) 0.5 mg IH RQ6 [facility] Levothyroxine Sodium (Synthroid) 150 mcg PO DAILY [facility] Last Admin: 08/21/18 10:02 Dose: 150 mcg Magnesium Hydroxide (Milk Of Magnesia) 30 ml PO HS PRN PRN Reason: Constipation Rosuvastatin Calcium (Crestor) 5 mg PO [facility] Last Admin: 08/20/18 22:49 Dose: 5 mg Zolpidem Tartrate (Ambien) 5 mg PO HS PRN PRN Reason: Insomnia Physical Exam - Constitutional Appears: Non-toxic, No Acute Distress, Cachectic, Chronically Ill - Head Exam Head Exam: ATRAUMATIC, NORMOCEPHALIC - Eye Exam Eye Exam: EOMI, Normal appearance, PERRL Pupil Exam: NORMAL ACCOMODATION, PERRL - ENT Exam ENT Exam: Mucous Membranes Moist, Normal Exam - Neck Exam Neck exam: Positive for: Normal Inspection. Negative for: Lymphadenopathy - Respiratory Exam Respiratory Exam: Decreased Breath Sounds, Prolonged Expiratory Phase, Rhonchi - Cardiovascular Exam Cardiovascular Exam: Tachycardia, REGULAR RHYTHM, +S1, +S2 - GI/Abdominal Exam GI & Abdominal Exam: Diminished Bowel Sounds, Hypoactive Bowel Sounds, Soft. absent: Tenderness - Rectal Exam Rectal Exam: Deferred - Exam Exam: NORMAL INSPECTION - Extremities Exam Extremities exam: Positive for: pedal edema, pedal pulses present. Negative for: joint swelling Additional comments: bilat leg swelling - Back Exam Back exam: NORMAL INSPECTION - Neurological Exam Neurological exam: Alert, CN II-XII Intact, Normal Gait, Oriented x3, Reflexes Normal - Psychiatric Exam Psychiatric exam: Normal Affect, Normal Mood - Skin Skin Exam: Dry, Intact, Normal Color, Warm Results - Vital Signs Recent Vital Signs: Last Vital Signs Temp 98.1 F 08/21/18 20:19 Pulse 78 08/21/18 20:19 Resp 20 08/21/18 20:19 BP 100/39 L 08/21/18 20:19 Pulse Ox 96 08/21/18 20:19 - Labs Result Diagrams: 08/21/18 08:26 08/21/18 08:26 Labs: Laboratory Results - last 24 hr 08/20/18 08/21/18 08/21/18 17:55 06:38 08:26 WBC 19.4 H RBC 3.09 L Hgb 8.8 L D Hct 26.6 L MCV 85.9 MCH 28.3 MCHC 33.0 RDW 15.4 H Plt Count 270 MPV 9.7 Neut % (Auto) 87.3 H Lymph % (Auto) 7.5 L Caroline % (Auto) 4.7 Eos % (Auto) 0.1 Baso % (Auto) 0.4 Neut # (Auto) 16.9 H Lymph # (Auto) 1.5 Caroline # (Auto) 0.9 H Eos # (Auto) 0.0 Baso # (Auto) 0.1 Neutrophils % (Manual) 90 H Lymphocytes % (Manual) 7 L Monocytes % (Manual) 3 Platelet Estimate Normal Hypochromasia (manual) Slight Anisocytosis (manual) Slight Sodium Potassium Chloride Carbon Dioxide Anion Gap BUN Creatinine Est GFR ( Amer) Est GFR (Non-Af Amer) POC Glucose (mg/dL) 239 H Random Glucose Calcium Phosphorus Magnesium Total Bilirubin AST ALT Alkaline Phosphatase Total Protein Albumin Globulin Albumin/Globulin Ratio Blood Type B POSITIVE Antibody Screen Negative 08/21/18 08/21/18 08/21/18 08:26 11:30 16:23 WBC RBC Hgb Hct MCV MCH MCHC RDW Plt Count MPV Neut % (Auto) Lymph % (Auto) Caroline % (Auto) Eos % (Auto) Baso % (Auto) Neut # (Auto) Lymph # (Auto) Caroline # (Auto) Eos # (Auto) Baso # (Auto) Neutrophils % (Manual) Lymphocytes % (Manual) Monocytes % (Manual) Platelet Estimate Hypochromasia (manual) Anisocytosis (manual) Sodium 136 Potassium 4.0 Chloride 96 L Carbon Dioxide 30 Anion Gap 14 BUN 51 H Creatinine 2.4 H Est GFR ( Amer) 23 Est GFR (Non-Af Amer) 19 POC Glucose (mg/dL) 264 H 184 H Random Glucose 181 H Calcium 8.1 L Phosphorus 3.6 Magnesium 2.0 Total Bilirubin 0.6 AST 16 ALT 21 Alkaline Phosphatase 159 H Total Protein 5.7 L Albumin 2.6 L Globulin 3.0 Albumin/Globulin Ratio 0.9 L Blood Type Antibody Screen 08/21/18 21:11 WBC RBC Hgb Hct MCV MCH MCHC RDW Plt Count MPV Neut % (Auto) Lymph % (Auto) Caroline % (Auto) Eos % (Auto) Baso % (Auto) Neut # (Auto) Lymph # (Auto) Caroline # (Auto) Eos # (Auto) Baso # (Auto) Neutrophils % (Manual) Lymphocytes % (Manual) Monocytes % (Manual) Platelet Estimate Hypochromasia (manual) Anisocytosis (manual) Sodium Potassium Chloride Carbon Dioxide Anion Gap BUN Creatinine Est GFR ( Amer) Est GFR (Non-Af Amer) POC Glucose (mg/dL) 257 H Random Glucose Calcium Phosphorus Magnesium Total Bilirubin AST ALT Alkaline Phosphatase Total Protein Albumin Globulin Albumin/Globulin Ratio Blood Type Antibody Screen Assessment & Plan - Assessment and Plan (Free Text) Assessment: 83 year old female with a history of COPD, CHF, DM, afib, hypothyroid, multiple myeloma admitted for severe anemia and leukocytosis ID eval requested for this - r/o infectious etiology Cuktures sent IV antibiotics ordered thus far cultures negative port in left chest AND AV FISTULA NOT VISIBLY INFECTED Plan: CONTINUE EMPIRIC IV ANTIBIOTICS
--- NOTE | 2018-08-22 01:19 | CARD ---
APPROVED REPORT Date of service: 08/20/2018 EKG Measurement Heart [id number] CO [id number] <Conclusion> Normal sinus rhythm Cannot rule out Anterior infarct, age undetermined Abnormal ECG
[2018-08-22] MEDS ORDERED: Ipratropium 0.02% Inhal Soln (0.5 mg/2.5 ml) UD IH SCH (02:00)
[2018-08-22] MEDS: diltiaZEM 240 mg/24 Hours CD Cap PO SCH (09:22)
[2018-08-22] MEDS: Arformoterol 15 mcg/2 ml Inh Sol INH SCH (09:22)
[2018-08-22] MEDS: Levothyroxine 150 MCG TAB PO SCH (09:22)
[2018-08-22] MEDS: Budesonide 0.5 mg/2 ml Inhal Susp UD INH SCH (09:23)
--- NOTE | 2018-08-22 14:22 | CP.PCM.PN ---
Subjective - Date & Time of Evaluation Date of Evaluation: 08/22/18 Time of Evaluation: 14:19 - Subjective Subjective: pt seen and examined in bed, comfortable s/p HD and blood transfusion yesterday wants to go back to rehab no other complaints ROS- as per HPI, other than that 10 point ROS negative Objective - Vital Signs/Intake and Output Vital Signs (last 24 hours): Temp Pulse Resp BP Pulse Ox 97.9 F 79 20 108/64 99 08/22/18 08:00 08/22/18 08:00 08/22/18 08:00 08/22/18 08:00 08/22/18 12:03 Intake and Output: 08/22/18 08/22/18 06:59 18:59 Intake Total 200 Balance 200 - Medications Medications: Current Medications Amiodarone HCl (Cordarone) 200 mg PO DAILY [facility] Last Admin: 08/22/18 09:21 Dose: 200 mg Arformoterol Tartrate (Brovana) 15 mcg INH RQ12@1000,2200 [facility] Last Admin: 08/22/18 09:22 Dose: 15 mcg Bisacodyl (Dulcolax) 10 mg RC DAILY [facility] Last Admin: 08/22/18 09:21 Dose: 10 mg Budesonide (Pulmicort Respules) 0.5 mg INH RQ12 [facility] Last Admin: 08/22/18 09:23 Dose: 0.5 mg Calcium Acetate (Phoslo) 667 mg PO TIDCC [facility] Last Admin: 08/22/18 11:43 Dose: 667 mg Diltiazem HCl (Cardizem Cd) 240 mg PO DAILY [facility] Last Admin: 08/22/18 09:22 Dose: 240 mg Docusate Sodium (Colace) 100 mg PO BID [facility] Last Admin: 08/22/18 09:21 Dose: 100 mg Epoetin Eddie (Procrit) 10,000 unit IV MWF [facility] Last Admin: 08/21/18 13:48 Dose: 10,000 unit Famotidine (Pepcid) 20 mg PO DAILY [facility] Last Admin: 08/22/18 09:21 Dose: 20 mg Ferrous Sulfate (Feosol) 325 mg PO DAILY [facility] Last Admin: 08/22/18 09:22 Dose: 325 mg Glipizide (Glucotrol) 10 mg PO ACBD [facility] Last Admin: 08/22/18 08:27 Dose: 10 mg Cefepime HCl 1 gm/ Dextrose 50 mls @ 100 mls/hr IVPB Q24H [facility]; Protocol Last Admin: 08/21/18 23:46 Dose: 100 mls/hr Vancomycin HCl 1 gm/ Sodium (Chloride) 250 mls @ 166.7 mls/hr IVPB MWF [facility]; Protocol Insulin Detemir (Levemir) 12 unit SC HS [facility] Last Admin: 08/21/18 22:42 Dose: Not Given Ipratropium [place] (Atrovent) 0.5 mg IH RQ6 [facility] Levothyroxine Sodium (Synthroid) 150 mcg PO 0630 [facility] Magnesium Hydroxide (Milk Of Magnesia) 30 ml PO HS PRN PRN Reason: Constipation Rosuvastatin Calcium (Crestor) 5 mg PO HS [facility] Last Admin: 08/21/18 22:42 Dose: Not Given Zolpidem Tartrate (Ambien) 5 mg PO HS PRN PRN Reason: Insomnia Last Admin: 08/21/18 23:49 Dose: 5 mg - Labs Labs: 08/21/18 08:26 08/21/18 08:26 - Constitutional Appears: No Acute Distress, Chronically Ill - Head Exam Head Exam: ATRAUMATIC, NORMOCEPHALIC - Eye Exam Eye Exam: EOMI, PERRL - ENT Exam ENT Exam: Mucous Membranes Moist - Neck Exam Neck Exam: Full ROM - Respiratory Exam Respiratory Exam: Rhonchi. absent: Wheezes - Cardiovascular Exam Cardiovascular Exam: Irregular Rhythm, +S1, +S2 - GI/Abdominal Exam GI & Abdominal Exam: Soft. absent: Tenderness - Extremities Exam Extremities Exam: absent: Joint Swelling, Pedal Edema - Neurological Exam Neurological Exam: Alert, Awake, Oriented x3 - Psychiatric Exam Psychiatric exam: Normal Affect, Normal Mood - Skin Skin Exam: Normal Color, Warm Assessment and Plan (1) ESRD (end stage renal disease) Status: Acute (2) Symptomatic anemia Status: Acute (3) Atrial fibrillation with controlled ventricular response Status: Acute (4) CHF (congestive heart failure) Status: Acute (5) Multiple myeloma Status: Acute - Assessment and Plan (Free Text) Plan: maintain HS mWF anemia- secondary to myeloma and CKD s/p transfusion clinically stable renal sagastume for discharge
[2018-08-22 15:54] VITALS: BP 114/64; PULSE 78; TEMP 98.2; O2SAT 96
--- NOTE | 2018-08-22 16:33 | PCM.HF ---
Heart Failure Core Measure - Heart Failure Ejection Fraction: 40 % or Greater (EF 73 %) [id number] Inhibitor Prescribed: No Contraindication/Reason for not providing: ESRD Beta-Aftab Prescribed: None Contraindication/Reason for not providing: COPD Angiotensin II Receptor Aftab Prescribed: No Contraindication/Reason for not providing: ESRD AnticoagulationTherapy for Atrial Fibrillation/Atrialflutter: Yes Aldosterone Antagonist Prescribed: No Contraindication/Reason for not providing: RENALdysfunction Hydralazine Nitrate Prescribed: No Contraindication/Reason for not providing: on amiodarone Implantable Cardioverter Defibrillator Therapy: No Contraindication/Reason for not providing: EF >40% Cardiac Resynchronization Therapy Prescribed: No Contraindication/Reason for not providing: not indicated - Follow up Will be discharged to: [facility]
--- NOTE | 2018-08-22 16:36 | CP.PCM.PN ---
Objective - Vital Signs/Intake and Output Vital Signs (last 24 hours): Temp Pulse Resp BP Pulse Ox 98.2 F 78 20 114/64 96 08/22/18 15:53 08/22/18 15:53 08/22/18 15:53 08/22/18 15:53 08/22/18 15:53 Intake and Output: 08/22/18 08/22/18 06:59 18:59 Intake Total 200 Balance 200 - Medications Medications: Current Medications Amiodarone HCl (Cordarone) 200 mg PO DAILY [facility] Last Admin: 08/22/18 09:21 Dose: 200 mg Arformoterol Tartrate (Brovana) 15 mcg INH RQ12@1000,2200 [facility] Last Admin: 08/22/18 09:22 Dose: 15 mcg Bisacodyl (Dulcolax) 10 mg RC DAILY [facility] Last Admin: 08/22/18 09:21 Dose: 10 mg Budesonide (Pulmicort Respules) 0.5 mg INH RQ12 [facility] Last Admin: 08/22/18 09:23 Dose: 0.5 mg Calcium Acetate (Phoslo) 667 mg PO TIDCC [facility] Last Admin: 08/22/18 11:43 Dose: 667 mg Diltiazem HCl (Cardizem Cd) 240 mg PO DAILY [facility] Last Admin: 08/22/18 09:22 Dose: 240 mg Docusate Sodium (Colace) 100 mg PO BID [facility] Last Admin: 08/22/18 09:21 Dose: 100 mg Epoetin Eddie (Procrit) 10,000 unit IV MWF [facility] Last Admin: 08/21/18 13:48 Dose: 10,000 unit Famotidine (Pepcid) 20 mg PO DAILY [facility] Last Admin: 08/22/18 09:21 Dose: 20 mg Ferrous Sulfate (Feosol) 325 mg PO DAILY [facility] Last Admin: 08/22/18 09:22 Dose: 325 mg Glipizide (Glucotrol) 10 mg PO ACBD [facility] Last Admin: 08/22/18 08:27 Dose: 10 mg Cefepime HCl 1 gm/ Dextrose 50 mls @ 100 mls/hr IVPB Q24H [facility]; Protocol Last Admin: 08/21/18 23:46 Dose: 100 mls/hr Vancomycin HCl 1 gm/ Sodium (Chloride) 250 mls @ 166.7 mls/hr IVPB MWF [facility]; Protocol Insulin Detemir (Levemir) 12 unit SC HS [facility] Last Admin: 08/21/18 22:42 Dose: Not Given Ipratropium [place] (Atrovent) 0.5 mg IH RQ6 [facility] Levothyroxine Sodium (Synthroid) 150 mcg PO 0630 [facility] Magnesium Hydroxide (Milk Of Magnesia) 30 ml PO HS PRN PRN Reason: Constipation Rosuvastatin Calcium (Crestor) 5 mg PO HS [facility] Last Admin: 08/21/18 22:42 Dose: Not Given Zolpidem Tartrate (Ambien) 5 mg PO HS PRN PRN Reason: Insomnia Last Admin: 08/21/18 23:49 Dose: 5 mg - Labs Labs: 08/21/18 08:26 08/21/18 08:26 Assessment and Plan - Assessment and Plan (Free Text) Assessment: Patient admitted with severe anemia , leucocytosis
[2018-08-22] MEDS: (Novolin R) Insulin Human Regular 100 units/ml vial SC SCH ×2 (18:05→21:33)
--- NOTE | 2018-08-22 18:42 | CP.PCM.PN ---
Subjective - Date & Time of Evaluation Date of Evaluation: 08/22/18 - Subjective Subjective: patient seen today no nausea no vomiting no diarrhea no fever No dizziness no shortness of breath Objective - Vital Signs/Intake and Output Vital Signs (last 24 hours): Temp Pulse Resp BP Pulse Ox 98.2 F 78 20 114/64 96 08/22/18 15:53 08/22/18 15:53 08/22/18 15:53 08/22/18 15:53 08/22/18 15:53 Intake and Output: 08/22/18 08/22/18 06:59 18:59 Intake Total 200 Balance 200 - Medications Medications: Current Medications Amiodarone HCl (Cordarone) 200 mg PO DAILY [facility] Last Admin: 08/22/18 09:21 Dose: 200 mg Arformoterol Tartrate (Brovana) 15 mcg INH RQ12@1000,2200 [facility] Last Admin: 08/22/18 09:22 Dose: 15 mcg Bisacodyl (Dulcolax) 10 mg RC DAILY [facility] Last Admin: 08/22/18 09:21 Dose: 10 mg Budesonide (Pulmicort Respules) 0.5 mg INH RQ12 [facility] Last Admin: 08/22/18 09:23 Dose: 0.5 mg Calcium Acetate (Phoslo) 667 mg PO TIDCC [facility] Last Admin: 08/22/18 18:05 Dose: 667 mg Diltiazem HCl (Cardizem Cd) 240 mg PO DAILY [facility] Last Admin: 08/22/18 09:22 Dose: 240 mg Docusate Sodium (Colace) 100 mg PO BID [facility] Last Admin: 08/22/18 18:05 Dose: 100 mg Epoetin Eddie (Procrit) 10,000 unit IV MWF [facility] Last Admin: 08/21/18 13:48 Dose: 10,000 unit Famotidine (Pepcid) 20 mg PO DAILY [facility] Last Admin: 08/22/18 09:21 Dose: 20 mg Ferrous Sulfate (Feosol) 325 mg PO DAILY [facility] Last Admin: 08/22/18 09:22 Dose: 325 mg Glipizide (Glucotrol) 10 mg PO ACBD [facility] Last Admin: 08/22/18 18:05 Dose: 10 mg Cefepime HCl 1 gm/ Dextrose 50 mls @ 100 mls/hr IVPB Q24H [facility]; Protocol Last Admin: 08/21/18 23:46 Dose: 100 mls/hr Vancomycin HCl 1 gm/ Sodium (Chloride) 250 mls @ 166.7 mls/hr IVPB MWF [facility]; Protocol Insulin Detemir (Levemir) 12 unit SC HS [facility] Last Admin: 08/21/18 22:42 Dose: Not Given Insulin Human Regular (Novolin R) 0 unit SC ACHS [facility]; Protocol Last Admin: 08/22/18 18:05 Dose: 10 units Ipratropium [place] (Atrovent) 0.5 mg IH RQ6 [facility] Levothyroxine Sodium (Synthroid) 150 mcg PO 0630 [facility] Magnesium Hydroxide (Milk Of Magnesia) 30 ml PO HS PRN PRN Reason: Constipation Rosuvastatin Calcium (Crestor) 5 mg PO HS [facility] Last Admin: 08/21/18 22:42 Dose: Not Given Zolpidem Tartrate (Ambien) 5 mg PO HS PRN PRN Reason: Insomnia Last Admin: 08/21/18 23:49 Dose: 5 mg - Labs Labs: 08/21/18 08:26 08/21/18 08:26 - Constitutional Appears: Well - Head Exam Head Exam: ATRAUMATIC, NORMAL INSPECTION, NORMOCEPHALIC - Eye Exam Eye Exam: EOMI, Normal appearance, PERRL Pupil Exam: NORMAL ACCOMODATION, PERRL - ENT Exam ENT Exam: Mucous Membranes Moist, Normal Exam - Neck Exam Neck Exam: Full ROM, Normal Inspection. absent: Lymphadenopathy - Respiratory Exam Respiratory Exam: Decreased Breath Sounds - Cardiovascular Exam Cardiovascular Exam: REGULAR RHYTHM, +S1, +S2 - GI/Abdominal Exam GI & Abdominal Exam: Soft, Diminished Bowel Sounds - Rectal Exam Rectal Exam: Deferred - Neurological Exam Neurological Exam: Oriented x3 Assessment and Plan - Assessment and Plan (Free Text) Plan: brovana cardizem cd colace cordarone crestor dulcolax feosol glucotrol levemir milk of mag pepcid phoslo procrit pulmicort respules synthroid plan discussed with patient and family moderate complexity of care medications reviewed labs reviewed vitals reviewed
--- NOTE | 2018-08-22 18:58 | CP.PCM.PN ---
Subjective - Date & Time of Evaluation Date of Evaluation: 08/22/18 Time of Evaluation: 08:00 - Subjective Subjective: stilkl coughing 'awake alert Objective - Vital Signs/Intake and Output Vital Signs (last 24 hours): Temp Pulse Resp BP Pulse Ox 98.2 F 78 20 114/64 96 08/22/18 15:53 08/22/18 15:53 08/22/18 15:53 08/22/18 15:53 08/22/18 15:53 Intake and Output: 08/22/18 08/22/18 06:59 18:59 Intake Total 200 Balance 200 - Medications Medications: Current Medications Amiodarone HCl (Cordarone) 200 mg PO DAILY [facility] Last Admin: 08/22/18 09:21 Dose: 200 mg Arformoterol Tartrate (Brovana) 15 mcg INH RQ12@1000,2200 [facility] Last Admin: 08/22/18 09:22 Dose: 15 mcg Bisacodyl (Dulcolax) 10 mg RC DAILY [facility] Last Admin: 08/22/18 09:21 Dose: 10 mg Budesonide (Pulmicort Respules) 0.5 mg INH RQ12 [facility] Last Admin: 08/22/18 09:23 Dose: 0.5 mg Calcium Acetate (Phoslo) 667 mg PO TIDCC [facility] Last Admin: 08/22/18 18:05 Dose: 667 mg Diltiazem HCl (Cardizem Cd) 240 mg PO DAILY [facility] Last Admin: 08/22/18 09:22 Dose: 240 mg Docusate Sodium (Colace) 100 mg PO BID [facility] Last Admin: 08/22/18 18:05 Dose: 100 mg Epoetin Eddie (Procrit) 10,000 unit IV MWF [facility] Last Admin: 08/21/18 13:48 Dose: 10,000 unit Famotidine (Pepcid) 20 mg PO DAILY [facility] Last Admin: 08/22/18 09:21 Dose: 20 mg Ferrous Sulfate (Feosol) 325 mg PO DAILY [facility] Last Admin: 08/22/18 09:22 Dose: 325 mg Glipizide (Glucotrol) 10 mg PO ACBD [facility] Last Admin: 08/22/18 18:05 Dose: 10 mg Cefepime HCl 1 gm/ Dextrose 50 mls @ 100 mls/hr IVPB Q24H [facility]; Protocol Last Admin: 08/21/18 23:46 Dose: 100 mls/hr Vancomycin HCl 1 gm/ Sodium (Chloride) 250 mls @ 166.7 mls/hr IVPB MWF [facility]; Protocol Insulin Detemir (Levemir) 12 unit SC HS [facility] Last Admin: 08/21/18 22:42 Dose: Not Given Insulin Human Regular (Novolin R) 0 unit SC ACHS [facility]; Protocol Last Admin: 08/22/18 18:05 Dose: 10 units Ipratropium [place] (Atrovent) 0.5 mg IH RQ6 [facility] Levothyroxine Sodium (Synthroid) 150 mcg PO 0630 [facility] Magnesium Hydroxide (Milk Of Magnesia) 30 ml PO HS PRN PRN Reason: Constipation Rosuvastatin Calcium (Crestor) 5 mg PO HS [facility] Last Admin: 08/21/18 22:42 Dose: Not Given Zolpidem Tartrate (Ambien) 5 mg PO HS PRN PRN Reason: Insomnia Last Admin: 08/21/18 23:49 Dose: 5 mg - Labs Labs: 08/21/18 08:26 08/21/18 08:26 - Constitutional Appears: Non-toxic, No Acute Distress, Chronically Ill - Head Exam Head Exam: ATRAUMATIC, NORMAL INSPECTION, NORMOCEPHALIC - Eye Exam Eye Exam: EOMI, Normal appearance, PERRL Pupil Exam: NORMAL ACCOMODATION, PERRL - ENT Exam ENT Exam: Mucous Membranes Moist, Normal Exam - Neck Exam Neck Exam: Full ROM, Normal Inspection. absent: Lymphadenopathy - Respiratory Exam Respiratory Exam: Clear to Ausculation Bilateral, NORMAL BREATHING PATTERN - Cardiovascular Exam Cardiovascular Exam: REGULAR RHYTHM, +S1, +S2. absent: Murmur - GI/Abdominal Exam GI & Abdominal Exam: Soft, Normal Bowel Sounds. absent: Tenderness - Rectal Exam Rectal Exam: Deferred - Extremities Exam Extremities Exam: Full ROM, Normal Capillary Refill, Normal Inspection. absent: Joint Swelling, Pedal Edema - Back Exam Back Exam: NORMAL INSPECTION - Neurological Exam Neurological Exam: Alert, Awake, CN II-XII Intact, Oriented x3. absent: Normal Gait - Psychiatric Exam Psychiatric exam: Normal Affect, Normal Mood - Skin Skin Exam: Dry, Intact, Normal Color, Warm Assessment and Plan - Assessment and Plan (Free Text) Assessment: ESRD with hx of hematologic malignancy r/o pneumonia severe CHF COPD ESRD r/op sepsis check cultures 'poor prognosis
[2018-08-22] MEDS: Insulin Detemir 100 units/ml Vial (Levemir) SC SCH (21:48)
[2018-08-23] MEDS ORDERED: Levothyroxine 150 MCG TAB PO SCH (06:30)
== END 2018-08-22 22:05 ==
LOC: C.ER 16:50 → C.9E 18:08 → C.5S 20:36
PROVIDERS: ADMIT Internal Medicine Nephrology; ATTEND Internal Medicine Nephrology
DX: D64.9 Anemia, unspecified (principal); I13.2 Hypertensive heart and chronic kidney disease with heart failure and with stage 5 chronic kidney disease, or end stage renal disease; E11.22 Type 2 diabetes mellitus with diabetic chronic kidney disease; N18.6 End stage renal disease; I50.9 Heart failure, unspecified; E03.9 Hypothyroidism, unspecified; D72.829 Elevated white blood cell count, unspecified; J44.9 Chronic obstructive pulmonary disease, unspecified; I48.91 Unspecified atrial fibrillation; E78.00 Pure hypercholesterolemia, unspecified; Z87.891 Personal history of nicotine dependence; Z85.79 Personal history of other malignant neoplasms of lymphoid, hematopoietic and related tissues
CPT/HCPCS: 36415; 36430; 71045; 80053; 82948; 83605; 83735; 84100; 84145; 85025; 86850; 86900; 86920; 93005; 94640; 97116; 97163; 99285; G0257; G0378; G8978; G8979; J0692; P9051; Q4081